=== PATIENT | male | born 1975 | race Caucasian/White ===

== ENCOUNTER 2017-09-18 11:05 | Inpatient (IN) | payer MEDICARE, MEDICAID ==
[~2017-09-18] VITALS: Ht 182.9 cm; Wt 136.1 kg
[2017-09-18] VITALS (7 sets, daily range): BP systolic 139–184; BP diastolic 79–110
[~2017-09-18 11:05] MED LIST: ACTOS15 MG PO; AMIT75TA2 PO; AMT25T PO; CELEXA PO; CITA40TA19 PO; DESV50TA PO; DOXY100C2 PO; HYDR-2856 PO; HYDR-2962 PO; HYDR-34 PO; HYDR-3720 PO; HYDR1TAB PO; HYDR25CA92 PO; IBP800T PO; LITHIUM; METF850T PO; MTF500T PO; NF-ESOM40C PO; OXYC80TA39 PO; OXYCONTIN PO; PALI6TAB2 PO; PGLT30T PO; QUET300T PO; QUET300T2 PO; QUET50TA PO; SULF1TAB38 PO; TRAM50TA2 PO
[2017-09-18] MEDS ORDERED: NS IV 1000 ML 1,000 ML ONE (11:08)
--- OUTSIDE RECORDS SUMMARY | 2017-09-18 11:11 | XMS REPORT ---
Author Author ANIL Sanchez Organization [facility] Address [address] [place] [address] Care Team Providers Care Director Of Anesthesia Services Name Role Phone Daniel ANIL Unavailable PROBLEMS Type Condition ICD9-CM Code TBG34-ZD Code Onset Dates Condition Status SNOMED Code Problem HTN (hypertension) I10 Active 11843146 Problem Restless legs syndrome G25.81 Active 649734038 Problem GERD (gastroesophageal reflux disease) K21.9 Active 849217399 Problem ED (erectile dysfunction) N52.9 Active 517948788 Problem PAD (peripheral artery disease) I73.9 Active 689833160 Problem Ulcer of right foot, unspecified ulcer stage L97.519 Active 00504405 Problem 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 669737794 Problem COPD (chronic obstructive pulmonary disease) J44.9 Active 92425120 Problem DM neuro manif type II E11.49 Active 41046562 Problem Sinusitis, unspecified chronicity, unspecified location J32.9 Active 55573827 ALLERGIES No Information ENCOUNTERS Encounter Location Date Diagnosis [facility] [id number] [place] [address] 46463- 5713 Aug, [facility] [id number] [place] [address] 71667- 4567 Jul, Back pain M54.9 [facility] [id number] [place] [address] 86981- 1193 Jul, [place] [facility] [id number] [place] [address] 75912- 6686 Jul, DM neuro manif type II E11.49 and Ulcer of right foot, unspecified ulcer stage L97.519 [place] [id number] [place] [address] 53069- 8375 Jun, [facility] [id number] [place] [address] 60754- 7922 15 Jun, 2017 [facility] [id number] [place] [address] 72351- 0727 May, 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 complication E11.49 ; GERD (gastroesophageal reflux disease) K21.9 and PAD ( peripheral artery disease) I73.9 [facility] [id number] [place] [address] 14239- 7603 May, Decubital ulcer L89.90 ; Diabetes E11.9 and GERD ( gastroesophageal reflux disease) K21.9 [facility] [id number] [place] [address] 11606- 9041 May, [facility] [id number] [place] [address] 77000- 4464 Apr, [facility] [id number] [place] [address] 17779- 0123 Mar, [facility] [id number] [place] [address] 21231- 1799 Mar, [facility] [id number] [place] [address] 48872- 9680 Feb, [facility] [id number] [place] [address] 80377- 1373 Feb, [facility] [id number] [place] [address] 21546- 7086 Jan, [facility] [id number] [place] [address] 86447- 9457 Jan, HTN (hypertension) I10 [facility] [id number] [place] [address] 87614- 4394 Jan, [facility] [id number] [place] [address] 02756- 5422 Dec, Back pain M54.9 [facility] [id number] [address]- 1822 Dec, Back pain M54.9 [facility] [id number] [place] [address] 93988 -7260 Dec, Encounter for immunization Z23 and Puncture wound of right foot, initial encounter S91.331A [facility] [id number] [place] [address] 44353- 5302 Dec, [facility] [id number] [place] [address] 63302- 9608 Nov, [facility] [id number] [place] [address] 65022- 3653 Nov, COPD (chronic obstructive pulmonary disease) J44.9 [facility] [id number] [place] [address] 45638- 3309 Nov, [facility] [id number] [place] [address] 74497- 0170 Oct, [facility] [id number] [place] [address] 12352- 2430 Oct, [facility] [id number] [place] [address] 04238- 3014 September, Onychomycosis B35.1 and DM neuro manif type II E11.49 [facility] [id number] [place] [address] 38693- 1985 September, [facility] [id number] [place] [address] 42629- 1982 Aug, [facility] [id number] [place] [address] 21087- 9200 Jul, Sinusitis, unspecified chronicity, unspecified location J32.9 and Cough R05 [facility] [id number] [place] [address] 73673- 2868 Jul, Back pain M54.9 [facility] [id number] [place] [address] 65596- 5293 14 Jun, 2016 Back pain M54.9 [facility] [id number] [place] [address] 23408- 5553 06 Jun, 2016 COPD (chronic obstructive pulmonary disease) J44.9 [facility] [id number] [place] [address] 09710- 6037 May, [facility] [id number] [place] [address] 20982- 7052 May, [facility] [id number] [place] [address] 93017- 4332 May, Back pain M54.9 [facility] [id number] [place] [address] 42469- 6985 May, [facility] [id number] [place] [address] 25181- 4608 May, [facility] [id number] [place] [address] 12294- 6582 May, Diabetes E11.9 [place] [id number] [place] [address] 98506- 3707 11 May, 2016 Diabetes E11.9 ; GERD (gastroesophageal reflux disease) K21.9 ; Back pain M54.9 ; ED (erectile dysfunction) N52.9 ; HTN (hypertension) I10 ; COPD (chronic obstructive pulmonary disease) J44.9 ; 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 complication E11.49 ; Insomnia G47.00 ; Restless legs syndrome G25.81 ; Encounter for hepatitis C screening test for low risk patient Z11.59 and Need for hepatitis C screening test Z11.59 [place] [id number] [place] [address] 57213- 7045 May, HTN (hypertension) I10 [facility] [id number] [place] [address] 38523- 3675 Apr, [facility] [id number] [place] [address] 78239- 0857 Apr, [facility] [id number] [place] [address] 49027- 8927 Apr, [facility] [id number] [place] [address] 81608- 4716 Apr, [facility] [id number] [place] [address] 79025- 9272 Apr, [facility] [id number] [place] [address] 19461- 1287 Mar, [facility] [id number] [place] [address] 02855- 7176 Mar, [facility] [id number] [place] [address] 82558- 3911 Mar, [facility] [id number] [place] [address] 20128- 7376 Mar, [facility] [id number] [place] [address] 89249- 5733 Mar, Dental examination Z01.20 [facility] [id number] [place] [address] 86678- 8820 Feb, [facility] [id number] [place] [address] 93503- 4489 Feb, [facility] [id number] [place] [address] 44843- 3373 Feb, Back pain M54.9 [facility] [id number] [place] [address] 88274- 3009 Jan, [facility] [id number] [place] [address] 13823- 4340 Jan, [facility] [id number] [place] [address] 55439- 5175 Dec, Diabetes E11.9 ; GERD (gastroesophageal reflux disease) K21.9 ; ED (erectile dysfunction) N52.9 ; HTN (hypertension) I10 ; Insomnia G47.00 ; COPD (chronic obstructive pulmonary disease) J44.9 ; Neuropathy G62.9 and Bipolar depression F31.30 [facility] [id number] [place] [address] 69394- 3125 Dec, 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 complication E11.49 and Onychomycosis B35.1 [facility] [id number] [place] [address] 32088- 5833 Dec, [facility] [id number] [place] [address] 82613- 3578 Dec, [facility] [id number] [place] [address], [place] [address]- 4779 Dec, [facility] [id number] [place] [address], [place] [address]- 5795 Dec, [facility] [id number] [place] [address] 32354- 5981 Nov, [facility] [id number] [place] [address] 08307- 6550 Nov, [facility] [id number] [place] [address], [place] [address]- 5762 Oct, [facility] [id number] [address]- 0052 Oct, [facility] [id number] [place] [address] 13017- 6449 Oct, Back pain M54.9 [facility] [id number] [place] [address] 44944- 8535 Oct, [facility] [id number] [place] [address] 14765- 9482 Oct, [facility] [id number] [address]- 8657 Oct, [facility] [id number] [place] [address] 37782- 1473 Oct, HTN (hypertension) I10 [facility] [address] [address]- 7500 Oct, Back pain M54.9 [facility] [id number] [place] [address] 32449- 1542 Oct, Chronic pain syndrome G89.4 [facility] [id number] [place] [address] 71083- 8638 September, Back pain M54.9 [facility] [id number] [place] [address] 84420- 3314 September, HTN (hypertension) I10 [facility] [id number] [place] [address] 46565- 6937 Aug, Porokeratosis Q82.8 ; Onychomycosis B35.1 and 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 complication E11.49 [facility] [id number] [place] [address] 08084- 0565 Aug, GERD (gastroesophageal reflux disease) K21.9 ; Diabetes E11.9 ; HTN (hypertension) I10 ; Insomnia G47.00 ; Restless legs syndrome G25.81 ; COPD (chronic obstructive pulmonary disease) J44.9 ; Back pain M54.9 and Bipolar 1 disorder F31.9 [facility] [address] [address]- 7554 Aug, [facility] [id number] [place] [address] 70629- 6193 Aug, [facility] [id number] [place] [address] 46712- 2369 Aug, [facility] [id number] [place] [address] 56708- 3407 Aug, [facility] [address] [place] [address] 33214- 6444 Jul, [facility] [id number] [place] [address] 75331- 9090 31 Jul, 2015 [facility] [id number] [place] [address] 09155- 0971 30 Jul, 2015 [facility] [id number] [place] [address] 11493- 0130 16 Jul, 2015 [facility] [id number] [place] [address] 50602- 2522 15 Jul, 2015 [facility] [id number] [place] [address] 91802- 3539 Jul, [facility] [id number] [place] [address] 02976- 0134 Jun, Decubital ulcer L89.90 ; Diabetes E11.9 ; Back pain M54.9 ; HTN (hypertension) I10 and COPD (chronic obstructive pulmonary disease) J44.9 [facility] [id number] [place] [address] 86276- 7204 Jun, [facility] [id number] [place] [address] 84331- 9839 Jun, [facility] [id number] [place] [address] 31412- 3742 Jun, [facility] [id number] [place] [address] 70908- 4478 Jun, [facility] [id number] [place] [address] 68465- 6709 Jun, Diabetes E11.9 ; Insomnia G47.00 ; Decubital ulcer L89.90 ; GERD (gastroesophageal reflux disease) K21.9 ; Back pain M54.9 ; Superficial fungus infection of skin B36.9 and HTN (hypertension) I10 [address] [id number] [id number] Jun, Dental examination Z01.20 [facility] [address] [address]- 1592 May, [facility] [address] [address]- 1801 May, [facility] [id number] [place] [address] 25437- 3621 May, [facility] [address] [place] [address] 72319- 6029 May, Diabetes E11.9 ; HTN (hypertension) I10 and Decubital ulcer L89.90 [facility] [id number] [address]- 3885 May, HTN (hypertension) I10 ; Decubital ulcer L89.90 and Diabetes E11.9 [place] [id number] [place] [address] 51070- 6241 30 Apr, 2015 Diabetes E11.9 ; GERD (gastroesophageal reflux disease) K21.9 ; Back pain M54.9 ; HTN (hypertension) I10 ; Restless legs syndrome G25.81 and Decubital ulcer L89.90 [facility] [facility] [address] [address]- 9114 17 Apr, 2015 [place] [id number] [place] [address] 34709- 1135 Apr, Diabetes E11.9 ; HTN (hypertension) I10 ; Restless legs syndrome G25.81 ; GERD (gastroesophageal reflux disease) K21.9 and COPD ( chronic obstructive pulmonary disease) J44.9 [facility] [address] [address]- 5946 Mar, [facility] [address] [address]- 1359 Mar, [place] [id number] [place] [address] 90533- 2814 18 Mar, 2015 Diabetes E11.9 ; Abscess L02.91 and Restless legs syndrome G25.81 [place] [facility] [id number] [place] [address] 50983- 0907 Mar, [place] [id number] [place] [address] 49113- 2751 Feb, GERD (gastroesophageal reflux disease) K21.9 ; Back pain M54.9 ; ED (erectile dysfunction) N52.9 ; Diabetes E11.9 ; HTN (hypertension) I10 and Insomnia G47.00 [place] [id number] [place] [address] 31028- 2895 Feb, [place] [facility] [address] 30830- 5477 Feb, [place] [facility] [address] 47990- 6497 Jan, [facility] [facility] [address] 56493- 6794 Jan, Diabetes 250.00 ; Nondependent cannabis abuse, continuous 305.21 ; Cough 786.2 ; Schizoaffective disorder, unspecified 295.70 ; Sciatica 724.3 ; Other, mixed, or unspecified nondependent drug abuse, unspecified 305.90 ; Chronic pain 338.29 ; GERD (gastroesophageal reflux disease) 530.81 and HTN (hypertension) 401.9 [place] [id number] [place] [address] 73335- 2934 Jan, [place] [id number] [place] [address] 53175- 1376 Jan, [place] [facility] [address] 85328- 9961 Jan, Chronic pain associated with significant psychosocial dysfunction 338.4 ; Diabetes mellitus without mention of complication, type I [ juvenile type], uncontrolled 250.03 ; Benign essential hypertension 401.1 ; Schizoaffective disorder, unspecified 295.70 ; Wheezing 786.07 ; Ear ache 388.70 ; Cough 786.2 ; Sciatica 724.3 and Foot pain, bilateral 729.5 [place] [id number] [place] [address] 05421- 0712 Dec, [facility] [address] [address]- 6666 Dec, [facility] [address] [address]- 2604 Dec, [facility] [address] [address]- 9513 Dec, [facility] [address] [place] [address] 41681- 9090 Dec, [facility] [address] [address]- 7637 Nov, Elevated liver enzymes 790.5 [facility] [address] [address]- 8453 Nov, [facility] [address] [address]- 7195 Nov, [facility] [address] [address]- 4145 Nov, [facility] [address] [address]- 4837 Nov, Benign essential hypertension 401.1 ; Diabetes mellitus without mention of complication, type I [juvenile type], uncontrolled 250.03 and Nondependent cannabis abuse, continuous 305.21 [facility] [address] [address]- 1800 Oct, Cellulitis 682.9 and Benign essential hypertension 401.1 [facility] [address] [address]- 0779 Oct, [facility] [address] [address]- 1328 September, [facility] [address] [address]- 6881 September, [facility] [address] [address]- 5898 Aug, [facility] [place] [facility] [address] [id number] [place] [address]- 0962 28 Aug, 2014 [facility] [place] [facility] [address] [id number] [place] [address]- 9270 14 Aug, 2014 [facility] [place] [facility] [address] [id number] [place] [address]- 3534 Aug, [facility] [place] [facility] [address] [id number] [place] [address]- 4122 Jul, [facility] [place] [facility] [address] [id number] [place] [address]- 8632 Jul, [facility] [place] [facility] [address] [id number] [place] [address]- 6482 Jul, [facility] [place] [facility] [address] [facility] [id number] [place] [address]- 6999 Jul, [facility] [place] [facility] [address] [id number] [place] [address]- 5739 Jul, [facility] [place] [facility] [address] [id number] [place] [address]- 8798 Jul, [facility] [place] [facility] [address] [id number] [place] [address]- 3735 Jun, [facility] [place] [facility] [address] [id number] [place] [address]- 6223 Jun, [facility] [place] [facility] [address] [id number] [place] [address]- 9878 Jun, [facility] [place] [facility] [address] [id number] [place] 2786 Jun, [facility] [place] [facility] [address] [id number] [place] 4244 Jun, [facility] [place] [facility] [address] [id number] [place] [address]- 1510 May, [facility] [place] [facility] [address] [id number] [place] [address]- 9155 May, [facility] [address] [id number] [place] [address]- 0204 May, [facility] [address] [id number] [place] [address]- 3095 May, [facility] [address] [id number] [place] [address]- 5124 May, [facility] [address] [id number] [place] [address]- 8900 May, [facility] [address] [id number] [place] [address]- 9711 May, [facility] [address] [id number] [place] [address]- 8430 May, [facility] [address] [id number] [place] [address]- 4218 Apr, [facility] [address] [id number] [place] [address]- 2262 Apr, [facility] [address] [id number] [place] [address] Apr, [facility] [address] [id number] [place] [address] Apr, [facility] [place] [facility] [address] [id number] [place] [address] Mar, [facility] [address] [id number] [place] [address] Mar, [facility] [place] [facility] [address] [id number] [place] [address] Mar, [facility] [place] [facility] [address] [id number] [place] [address] Mar, [facility] [place] [facility] [address] [id number] [place] [address] Feb, [facility] [place] [facility] [address] [id number] [place] [address] Feb, [facility] [place] [facility] [address] [id number] [place] [address] Feb, [facility] [place] [facility] [address] [id number] [place] [address] Feb, [facility] [place] [facility] [address] [id number] [place] [address] Feb, [facility] [place] [facility] [address] [id number] [place] [address] Feb, [facility] [place] [facility] [address] [id number] [place] [address] Jan, [facility] [place] [facility] [address] [id number] [place] [address] Jan, [facility] [place] [facility] [address] [id number] [place] [address] Jan, [facility] [place] [facility] [address] [id number] [place] [address] Jan, [facility] [place] [facility] [address] [id number] [place] [address] Dec, [facility] [place] [facility] [address] [id number] [place] [address] Dec, [facility] [place] [facility] [address] [id number] [place] [address] Dec, [facility] [place] [facility] [address] [id number] [place] [address] Dec, [facility] [place] [facility] [address] [id number] [place] [address] Dec, [facility] [place] [facility] [address] [id number] [place] [address] Dec, [facility] [place] [facility] [address] [id number] [place] [address] Oct, [facility] [address] [id number] [place] [address] Oct, [facility] [place] [facility] [address] [id number] [place] [address] September, [facility] [place] [facility] [address] [id number] [place] [address] September, [facility] [place] [facility] [address] [id number] [place] [address] September, [facility] [place] [facility] [address] [id number] [place] [address] September, [facility] [place] [facility] [address] [id number] [place] [address] September, [facility] [place] [facility] [address] [id number] [place] [address] September, [facility] [place] [facility] [address] [id number] [place] [address] Aug, [facility] [place] [facility] [address] [id number] [place] [address] Aug, [facility] [place] [facility] [address] [id number] [place] [address] Aug, [facility] [place] [facility] [address] [id number] [place] [address] Aug, [facility] [place] [facility] [address] [id number] [place] [address] Jul, [facility] [place] [facility] [address] [id number] [place] [address] Jul, [facility] [place] [facility] [address] [id number] [place] [address] Jun, [facility] [place] [facility] [address] [id number] [place] [address] Jun, [facility] [place] [facility] [address] [id number] [place] [address] May, [facility] [address] [id number] [place] [address] May, [facility] [place] [facility] [address] [id number] [place] [address] Jan, [facility] [place] [facility] [address] [id number] [place] [address] Dec, [facility] [place] [facility] [address] [id number] [place] [address] Jun, [facility] [place] [facility] [address] [id number] [place] [address] May, [facility] [address] [id number] [place] [address] Nov, [facility] [address] [id number] [place] [address] September, [facility] [address] [id number] [place] [address] Aug, [facility] [address] [id number] [place] [address] Aug, [facility] [place] [facility] [address] [id number] [place] [address] Aug, [facility] [address] [id number] [place] [address] Aug, [facility] [place] [facility] [address] [id number] [place] [address] Nov, [facility] [place] [facility] [address] [id number] [place] [address] Oct, [facility] [place] [facility] [address] [id number] [place] [address] Jul, [facility] [place] [facility] [address] [id number] [place] [address] Feb, [facility] [address] [facility] [id number] [place] [address] Feb, [facility] [address] [id number] [address] Apr, [facility] [address] [facility] [id number] [place] [address] Apr, [facility] [address] [id number] [address] Feb, [facility] [address] [facility] [id number] [place] [address] Feb, [facility] [address] [facility] [id number] [address] Jul, IMMUNIZATIONS No Known Immunizations SOCIAL HISTORY Never Assessed REASON FOR VISIT Controlled Med Refill Request PLAN OF CARE VITAL SIGNS MEDICATIONS Medication Instructions Dosage Frequency Start Date End Date Duration Status Lyrica 150 MG Orally Twice a day 1 capsule 12h 28 Active Hydrocodone-Ibuprofen 7.5-200 MG Orally 3 times a day 1 tablet as needed 8h Nov, 28 Active RESULTS No Results PROCEDURES No Known procedures INSTRUCTIONS MEDICATIONS ADMINISTERED No Known Medications MEDICAL (GENERAL) HISTORY Type Description Date Medical History hypertension Medical History Type 2 Diabetes Medical History Hep C Medical History Depression Medical History Anxiety Surgical History Right little toe amputation Hospitalization History Psych hospitalizations(numerous) Hospitalization History for surgeries
--- OUTSIDE RECORDS SUMMARY | 2017-09-18 11:11 | XMS REPORT | Clinical Summary ---
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 Disp. Refills Start End Date Status Date busPIRone (BUSPAR) 10 MG Take 2 tablets (20 mg 120 tablet 0 03/12/20 Active tablet total) by mouth 2 (two) 12 times daily. duloxetine (CYMBALTA) 60 Take 1 capsule (60 mg 30 capsule 0 03/12/20 Active MG capsule total) by mouth daily. 12 gabapentin (NEURONTIN) Take 2 capsules (600 mg 90 capsule 0 03/12/20 Active 300 MG capsule total) by mouth 3 (three) 12 times daily. lisinopril Take 1 tablet (10 mg 30 tablet 0 03/12/20 Active (PRINIVIL,ZESTRIL) 10 MG total) by mouth daily. 12 tablet ziprasidone (GEODON) 80 Take 1 capsule (80 mg 60 capsule 0 03/12/20 Active MG capsule total) by mouth 2 (two) 12 times daily with meals. zolpidem (AMBIEN) 10 MG Take 1 tablet (10 mg 15 tablet 1 03/12/20 Active tablet total) by mouth nightly 12 as needed for Sleep (can be given 30' after the Trazodone). metformin (GLUCOPHAGE) Take 1 tablet (500 mg 60 tablet 0 03/12/20 Active 500 MG tablet total) by mouth 2 (two) 12 times daily with meals. Active Problems Problem Noted Date Schizoaffective disorder, depressive type ([facility]) 03/04/2012 Mood disorder ([facility]) 03/02/2012 Social History Tobacco Use Types Packs/Day Years Used Date Current Every Day Smoker 06 09 Tobacco Cessation: Ready to Quit: No; Counseling Given: Yes Alcohol Use Drinks/Week oz/Week Comments Yes 1 Standard 0.5 drinks or equivalent Sex Assigned at Date Recorded Not on file Last Filed Vital Signs Vital Sign Reading Time Taken Blood Pressure 127/88 03/12/2012 6:27 AM CDT Pulse 75 03/12/2012 6:27 AM CDT Temperature 36.5 C (97.7 F) 03/12/2012 6:27 AM CDT Respiratory Rate 16 03/12/2012 6:27 AM CDT Oxygen Saturation 96% 03/10/2012 9:15 AM CDT Inhaled Oxygen - - Concentration Weight 85.3 kg (188 lb) 03/10/2012 6:35 AM CDT Height 177.8 cm (5' 10") 03/10/2012 6:35 AM CDT Body Mass Index 26.98 03/10/2012 6:35 AM CDT Plan of Treatment Health Maintenance Due Date Last Done Comments Varicella Vaccines (1 of 1986 2 - 2 Dose Adolescent Series) DTaP,Tdap,and Td Vaccines 1992 (1 - Tdap) Influenza Vaccine (Season 01/09/2018 Ended) Results Not on filefrom Last 3 Months
--- OUTSIDE RECORDS SUMMARY | 2017-09-18 11:11 | XMS REPORT ---
Author ANIL Ribeiro [facility] eClinical[employer] Address Unknown Phone Unavailable Care Team Providers Care Box Toe Flanger Stitchdowns Name Role Phone ANIL KHOURY Unavailable Allergies No Known Allergies Problems Problem Type Condition Code Onset Dates Condition Status Problem Encounter for long-term (current) use of other medications V58.69 Active Problem Corns and callosities 700 Active Problem Ulcer of other part of foot 707.15 Active Problem Benign essential hypertension 401.1 Active Problem Nondependent cannabis abuse, continuous 305.21 Active Problem Diabetes 250.00 Active Problem Wheezing 786.07 Active Problem Dermatophytosis of foot 110.4 Active Problem Lower limb amputation, great toe V49.71 Active Problem Cough 786.2 Active Problem Diabetes mellitus without mention of complication, type I [juvenile type], uncontrolled 250.03 Active Problem Unspecified hereditary and idiopathic peripheral neuropathy 356.9 Active Problem Other, mixed, or unspecified nondependent drug abuse, unspecified 305.90 Active Problem Counseling on substance use and abuse V65.42 Active Problem Nondependent tobacco use disorder 305.1 Active Problem Sciatica 724.3 Active Problem Dermatophytosis of nail 110.1 Active Problem Lower limb amputation, other toe(s) V49.72 Active Problem Schizoaffective disorder, unspecified 295.70 Active Medications Medication Code System Code Instructions Start Date End Date Status Dosage Lisinopril-Hydrochlorothiazide [facility] [address]-01 10-12.5 MG Orally 2 times a day Apr 18, 2014 take 0.5 tablet in a.m. and 0.5 tablet in the p.m. Results No Known Results Summary Purpose eClinicalWorks Submission
--- OUTSIDE RECORDS SUMMARY | 2017-09-18 11:11 | XMS REPORT ---
Author Author ANIL KHOURY Organization [facility] Address [address] [place] [address] Care Team Providers Care Zoning Administrator Name Role Phone ANIL KHOURY Unavailable PROBLEMS Type Condition ICD9-CM Code [id number] Code Onset Dates Condition Status SNOMED Code Problem Diabetes E11.9 Active 63569189 Problem Back pain M54.9 Active 379164811 Problem ED (erectile dysfunction) N52.9 Active 515052007 Problem Insomnia G47.00 Active 226075690 Problem HTN (hypertension) I10 Active 86259600 Problem 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 131533268 Problem Decubital ulcer L89.90 Active 456050553 Problem Restless legs syndrome G25.81 Active 152589386 Problem GERD (gastroesophageal reflux disease) K21.9 Active 440132216 Problem COPD (chronic obstructive pulmonary disease) J44.9 Active 91690282 Problem Abscess L02.91 Active 144665386 ALLERGIES Unknown Allergies SOCIAL HISTORY No smoking Hx information available PLAN OF CARE VITAL SIGNS MEDICATIONS Medication Instructions Dosage Frequency Start Date End Date Duration Status Vicoprofen 7.5-200 MG Orally 3 times a day 1 tablet as needed 8h 17 Jun, 2015 28 days Active RESULTS No Results PROCEDURES No Known procedures IMMUNIZATIONS No Known Immunizations
--- OUTSIDE RECORDS SUMMARY | 2017-09-18 11:11 | XMS REPORT ---
Author ANIL Ribeiro [facility] e[employer] Address Unknown Phone Unavailable Care Team Providers Care Union Contract Representative Name Role Phone ANIL KHOURY Unavailable Allergies No Known Allergies Problems Problem Type Condition Code Onset Dates Condition Status Problem Insomnia G47.00 Active Problem Restless legs syndrome G25.81 Active Problem GERD (gastroesophageal reflux disease) K21.9 Active Problem Abscess L02.91 Active Problem Diabetes E11.9 Active Problem HTN (hypertension) I10 Active Problem Back pain M54.9 Active Problem ED (erectile dysfunction) N52.9 Active Medications No Known Medications Results No Known Results Summary Purpose eClinicalWorks Submission
--- OUTSIDE RECORDS SUMMARY | 2017-09-18 11:12 | XMS REPORT ---
Author Author ANIL Sanchez Organization [facility] Address [address] [place] [address] Care Team Providers Care Hand Mounter Name Role Phone Daniel ANIL Unavailable PROBLEMS Type Condition ICD9-CM Code CRI91-EB Code Onset Dates Condition Status SNOMED Code Problem HTN (hypertension) I10 Active 89909023 Problem Restless legs syndrome G25.81 Active 075051163 Problem GERD (gastroesophageal reflux disease) K21.9 Active 444143700 Problem ED (erectile dysfunction) N52.9 Active 928035131 Problem PAD (peripheral artery disease) I73.9 Active 120007723 Problem Ulcer of right foot, unspecified ulcer stage L97.519 Active 37094322 Problem 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 708828025 Problem COPD (chronic obstructive pulmonary disease) J44.9 Active 69692860 Problem DM neuro manif type II E11.49 Active 65794840 Problem Sinusitis, unspecified chronicity, unspecified location J32.9 Active 46414313 ALLERGIES No Information ENCOUNTERS Encounter Location Date Diagnosis [facility] [id number] [place] [address] 64601- 1953 Aug, [facility] [id number] [place] [address] 65037- 1721 Jul, Back pain M54.9 [facility] [id number] [place] [address] 14905- 7215 Jul, [facility] [id number] [place] [address] 82578- 4942 Jul, DM neuro manif type II E11.49 and Ulcer of right foot, unspecified ulcer stage L97.519 [facility] [id number] [place] [address] 26956- 7619 Jun, [facility] [id number] [place] [address] 82209- 0208 15 Jun, 2017 [facility] [id number] [place] [address] 46913- 3852 May, 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 complication E11.49 ; GERD (gastroesophageal reflux disease) K21.9 and PAD ( peripheral artery disease) I73.9 [facility] [id number] [place] [address] 89119- 0496 May, Decubital ulcer L89.90 ; Diabetes E11.9 and GERD ( gastroesophageal reflux disease) K21.9 [facility] [id number] [place] [address] 84220- 4760 May, [facility] [id number] [place] [address] 38279- 8988 Apr, [facility] [id number] [place] [address] 51006- 3924 Mar, [facility] [id number] [place] [address] 01341- 0950 Mar, [facility] [id number] [place] [address] 51196- 0914 Feb, [facility] [id number] [place] [address] 20581- 7320 Feb, [facility] [id number] [place] [address] 02353- 7966 Jan, [facility] [id number] [place] [address] 02138- 4871 Jan, HTN (hypertension) I10 [facility] [id number] [place] [address] 28516- 2939 Jan, [facility] [id number] [place] [address] 93127- 1399 Dec, Back pain M54.9 [facility] [address] [address] 2467 Dec, Back pain M54.9 [facility] [id number] [place] [address] 11643 -3613 Dec, Encounter for immunization Z23 and Puncture wound of right foot, initial encounter S91.331A [facility] [id number] [place] [address] 23216- 7322 Dec, [facility] [id number] [place] [address] 37639- 8480 Nov, [facility] [id number] [place] [address] 60829- 8310 Nov, COPD (chronic obstructive pulmonary disease) J44.9 [facility] [id number] [place] [address] 49279- 1823 Nov, [facility] [id number] [place] [address] 54660- 5478 Oct, [facility] [id number] [place] [address] 67798- 7890 Oct, [facility] [id number] [place] [address] 91005- 1487 September, Onychomycosis B35.1 and DM neuro manif type II E11.49 [facility] [id number] [place] [address] 23372- 3240 September, [facility] [id number] [place] [address] 88076- 6901 Aug, [facility] [id number] [place] [address] 34255- 9459 Jul, Sinusitis, unspecified chronicity, unspecified location J32.9 and Cough R05 [facility] [id number] [place] [address] 41047- 3739 Jul, Back pain M54.9 [facility] [id number] [place] [address] 56829- 3994 14 Jun, 2016 Back pain M54.9 [facility] [id number] [place] [address] 18316- 9492 06 Jun, 2016 COPD (chronic obstructive pulmonary disease) J44.9 [facility] [id number] [place] [address] 61884- 9795 May, [facility] [id number] [place] [address] 53008- 8176 May, [facility] [id number] [place] [address] 53262- 5968 May, Back pain M54.9 [facility] [id number] [place] [address] 85658- 8311 May, [facility] [id number] [place] [address] 80169- 4736 May, [facility] [id number] [place] [address] 44522- 0467 May, Diabetes E11.9 [facility] [id number] [place] [address] 05919- 7671 11 May, 2016 Diabetes E11.9 ; GERD [...] Need for hepatitis C screening test Z11.59 [facility] [id number] [place] [address] 42293- 5993 May, HTN (hypertension) I10 [facility] [id number] [place] [address] 31631- 2751 Apr, [facility] [id number] [place] [address] 29582- 5606 Apr, [facility] [id number] [place] [address] 75094- 0159 Apr, [facility] [id number] [place] [address] 75787- 3930 Apr, [facility] [id number] [place] [address] 34203- 6327 Apr, [facility] [id number] [place] [address] 71674- 1721 Mar, [facility] [id number] [place] [address] 00361- 8461 Mar, [facility] [id number] [place] [address] 90520- 4905 Mar, [facility] [id number] [place] [address] 69186- 3149 Mar, [facility] [id number] [place] [address] 58911- 1576 Mar, Dental examination Z01.20 [facility] [id number] [place] [address] 62211- 2285 Feb, [facility] [id number] [place] [address] 28160- 4236 Feb, [facility] [id number] [place] [address] 67183- 9975 Feb, Back pain M54.9 [facility] [id number] [place] [address] 74064- 6179 Jan, [facility] [id number] [place] [address] 97736- 5274 Jan, [facility] [id number] [place] [address] 31604- 9606 Dec, Diabetes E11.9 ; GERD (gastroesophageal reflux disease) K21.9 ; ED (erectile dysfunction) N52.9 ; HTN (hypertension) I10 ; Insomnia G47.00 ; COPD (chronic obstructive pulmonary disease) J44.9 ; Neuropathy G62.9 and Bipolar depression F31.30 [facility] [id number] [place] [address] 16853- 3997 Dec, 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 complication E11.49 and Onychomycosis B35.1 [facility] [id number] [place] [address] 53498- 3738 Dec, [facility] [id number] [place] [address] 03686- 4158 Dec, [facility] [id number] [place] [address], [place] [address]- 9876 Dec, [facility] [id number] [place] [address], [place] [address]- 7270 Dec, [facility] [id number] [place] [address] 74817- 1363 Nov, [facility] [id number] [place] [address] 38248- 9989 Nov, [facility] [id number] [place] [address], [place] [address]- 2768 Oct, [facility] [id number] [address]- 8924 Oct, [facility] [id number] [place] [address] 79497- 8809 Oct, Back pain M54.9 [facility] [id number] [place] [address] 19958- 3201 Oct, [facility] [id number] [place] [address] 07316- 7043 Oct, [facility] [id number] [address]- 1529 Oct, [facility] [id number] [place] [address] 35449- 2810 Oct, HTN (hypertension) I10 [facility] [address] [place] [address]- 6366 Oct, Back pain M54.9 [facility] [id number] [place] [address] 06701- 3621 Oct, Chronic pain syndrome G89.4 [facility] [id number] [place] [address] 26254- 5344 September, Back pain M54.9 [facility] [id number] [place] [address] 34622- 8802 September, HTN (hypertension) I10 [facility] [id number] [place] [address] 16522- 9539 Aug, Porokeratosis Q82.8 ; Onychomycosis B35.1 and 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 complication E11.49 [facility] [id number] [place] [address] 72578- 0233 Aug, GERD (gastroesophageal reflux disease) K21.9 ; Diabetes E11.9 ; HTN (hypertension) I10 ; Insomnia G47.00 ; Restless legs syndrome G25.81 ; COPD (chronic obstructive pulmonary disease) J44.9 ; Back pain M54.9 and Bipolar 1 disorder F31.9 [facility] [address] [address]- 0327 Aug, [facility] [id number] [place] [address] 36609- 3726 Aug, [facility] [id number] [place] [address] 03760- 4837 Aug, [facility] [id number] [place] [address] 00113- 8406 Aug, [facility] [id number] [place] [address] 60193- 9744 Jul, [facility] [id number] [place] [address] 25361- 8630 31 Jul, 2015 [facility] [id number] [place] [address] 33778- 9097 30 Jul, 2015 [facility] [id number] [place] [address] 40679- 2897 16 Jul, 2015 [facility] [id number] [place] [address] 58024- 7976 15 Jul, 2015 [facility] [id number] [place] [address] 87175- 5293 Jul, [facility] [id number] [place] [address] 02332- 3935 Jun, Decubital ulcer L89.90 ; Diabetes E11.9 ; Back pain M54.9 ; HTN (hypertension) I10 and COPD (chronic obstructive pulmonary disease) J44.9 [facility] [id number] [place] [address] 01213- 3902 Jun, [facility] [id number] [place] [address] 69421- 7186 Jun, [facility] [id number] [place] [address] 49502- 6036 Jun, [facility] [id number] [place] [address] 97100- 3365 Jun, [facility] [id number] [place] [address] 35835- 8720 Jun, Diabetes E11.9 ; Insomnia G47.00 ; Decubital ulcer L89.90 ; GERD (gastroesophageal reflux disease) K21.9 ; Back pain M54.9 ; Superficial fungus infection of skin B36.9 and HTN (hypertension) I10 [address] [id number] [id number] Jun, Dental examination Z01.20 [facility] [address] [place] [address]- 7721 May, [facility] [address] [place] [address]- 3471 May, [facility] [id number] [place] [address] 58828- 8315 May, [facility] [id number] [place] [address] 13294- 7427 May, Diabetes E11.9 ; HTN (hypertension) I10 and Decubital ulcer L89.90 [facility] [id number] [address]- 0540 May, HTN (hypertension) I10 ; Decubital ulcer L89.90 and Diabetes E11.9 [facility] [id number] [place] [address] 16249- 2996 30 Apr, 2015 Diabetes E11.9 ; GERD (gastroesophageal reflux disease) K21.9 ; Back pain M54.9 ; HTN (hypertension) I10 ; Restless legs syndrome G25.81 and Decubital ulcer L89.90 [facility] [address] [address]- 3184 17 Apr, 2015 [facility] [id number] [place] [address] 86949- 6951 Apr, Diabetes E11.9 ; HTN (hypertension) I10 ; Restless legs syndrome G25.81 ; GERD (gastroesophageal reflux disease) K21.9 and COPD ( chronic obstructive pulmonary disease) J44.9 [facility] [address] [address]- 7313 Mar, [facility] [address] [address]- 2080 Mar, [facility] [id number] [place] [address] 71053- 5257 18 Mar, 2015 Diabetes E11.9 ; Abscess L02.91 and Restless legs syndrome G25.81 [place] [id number] [place] [address] 63987- 6618 Mar, [facility] [id number] [place] [address] 16669- 9081 Feb, GERD (gastroesophageal reflux disease) K21.9 ; Back pain M54.9 ; ED (erectile dysfunction) N52.9 ; Diabetes E11.9 ; HTN (hypertension) I10 and Insomnia G47.00 [facility] [id number] [place] [address] 27047- 5387 Feb, [facility] [address] 80652- 2098 Feb, [facility] [address] 50304- 9248 Jan, [facility] [address] 74971- 3215 Jan, Diabetes 250.00 ; Nondependent cannabis abuse, continuous 305.21 ; Cough 786.2 ; Schizoaffective disorder, unspecified 295.70 ; Sciatica 724.3 ; Other, mixed, or unspecified nondependent drug abuse, unspecified 305.90 ; Chronic pain 338.29 ; GERD (gastroesophageal reflux disease) 530.81 and HTN (hypertension) 401.9 [place] [id number] [place] [address] 67490- 3733 Jan, [place] [place] [id number] [place] [address] 94270- 8416 Jan, [place] [address] 70422- 6515 Jan, Chronic pain associated with significant psychosocial dysfunction 338.4 ; Diabetes mellitus without mention of complication, type I [ juvenile type], uncontrolled 250.03 ; Benign essential hypertension 401.1 ; Schizoaffective disorder, unspecified 295.70 ; Wheezing 786.07 ; Ear ache 388.70 ; Cough 786.2 ; Sciatica 724.3 and Foot pain, bilateral 729.5 [place] [id number] [place] [address] 05487- 3507 Dec, [facility] [address] [address]- 0270 Dec, [facility] [address] [address]- 2383 Dec, [facility] [address] [place] [address]- 5947 Dec, [facility] [id number] [place] [address] 55949- 8003 Dec, [facility] [address] [place] [address]- 6726 Nov, Elevated liver enzymes 790.5 [facility] [address] [place] [address]- 7418 Nov, [facility] [address] [place] [address]- 6556 Nov, [facility] [address] [place] [address]- 9937 Nov, [facility] [address] [place] [address]- 3629 Nov, Benign essential hypertension 401.1 ; Diabetes mellitus without mention of complication, type I [juvenile type], uncontrolled 250.03 and Nondependent cannabis abuse, continuous 305.21 [facility] [address], [place] [address]- 3418 Oct, Cellulitis 682.9 and Benign essential hypertension 401.1 [facility] [address] [address]- 9561 Oct, [facility] [address] [place] [address]- 2500 September, [facility] [address] [address]- 1922 September, [facility] [address] [place] [address]- 3198 Aug, [facility] [place] [facility] [address] [id number] [place] [address]- 0489 28 Aug, 2014 [facility] [place] [facility] [address] [id number] [place] [address]- 1242 14 Aug, 2014 [facility] [place] [facility] [address] [id number] [place] [address]- 5939 Aug, [facility] [place] [facility] [address] [id number] [place] [address]- 5240 Jul, [facility] [place] [facility] [address] [id number] [place] [address]- 4146 Jul, [facility] [place] [facility] [address] [id number] [place] [address]- 6645 Jul, [facility] [place] [facility] [address] [facility] [id number] [place] [address]- 5756 Jul, [facility] [place] [facility] [address] [id number] [place] [address]- 5348 Jul, [facility] [place] [facility] [address] [id number] [place] [address]- 2713 Jul, [facility] [place] [facility] [address] [id number] [place] [address]- 1058 Jun, [facility] [place] [facility] [address] [id number] [place] [address]- 7763 Jun, [facility] [place] [facility] [address] [id number] [place] [address]- 3107 Jun, [facility] [place] [facility] [address] [id number] [place] 8893 Jun, [facility] [place] [facility] [address] [id number] [place] 8955 Jun, [facility] [place] [facility] [address] [id number] [place] [address]- 2558 May, [facility] [place] [facility] [address] [id number] [place] [address]- 0169 May, [facility] [address] [id number] [place] [address]- 9517 May, [facility] [address] [id number] [place] [address]- 5530 May, [facility] [address] [id number] [place] [address]- 5881 May, [facility] [address] [id number] [place] [address]- 8749 May, [facility] [address] [id number] [place] [address] May, [facility] [address] [id number] [place] [address] May, [facility] [address] [id number] [place] [address] Apr, [facility] [address] [id number] [place] [address] Apr, [facility] [address] [id number] [place] [address] Apr, [facility] [address] [id number] [place] [address] Apr, [facility] [place] [facility] [address] [id number] [place] [address] Mar, [facility] [address] [id number] [place] [address] Mar, [facility] [place] [facility] [address] [id number] [place] [address] Mar, [facility] [place] [facility] [address] [id number] [place] [address] Mar, [facility] [place] [facility] [address] [id number] [place] [address] Feb, [facility] [place] [facility] [address] [id number] [place] [address] Feb, [facility] [place] [facility] [address] [id number] [place] [address] Feb, [facility] [place] [facility] [address] [id number] [place] [address] Feb, [facility] [place] [facility] [address] [id number] [place] [address] Feb, [facility] [place] [facility] [address] [id number] [place] [address] Feb, [facility] [place] [facility] [address] [id number] [place] [address] Jan, [facility] [place] [facility] [address] [id number] [place] [address] Jan, [facility] [place] [facility] [address] [id number] [place] [address] Jan, [facility] [place] [facility] [address] [id number] [place] [address] Jan, [facility] [place] [facility] [address] [id number] [place] [address] Dec, [facility] [place] [facility] [address] [id number], [place] [address] Dec, [facility] [place] [facility] [address] [id number], [place] [address] Dec, [facility] [place] [facility] [address] [id number] [place] [address] Dec, [facility] [place] [facility] [address] [id number] [place] [address] Dec, [facility] [place] [facility] [address] [id number], [place] [address] Dec, [facility] [place] [facility] [address] [id number], [place] [address] Oct, [facility] [address] [id number] [place] [address] Oct, [facility] [place] [facility] [address] [id number] [place] [address] September, [facility] [place] [facility] [address] [id number] [place] [address]- [address] September, [facility] [place] [facility] [address] [id number] [place] [address] September, [facility] [place] [facility] [address] [id number] [place] [address] September, [facility] [place] [facility] [address] [id number] [place] [address] September, [facility] [place] [facility] [address] [id number] [place] [address]- [address] September, [facility] [place] [facility] [address] [id number] [place] [address] Aug, [facility] [place] [facility] [address] [id number] [place] [address] Aug, [facility] [place] [facility] [address] [id number] [place] [address] Aug, [facility] [place] [facility] [address] [id number] [place] [address] Aug, [facility] [place] [facility] [address] [id number] [place] [address] Jul, [facility] [place] [facility] [address] [id number] [place] [address] Jul, [facility] [place] [facility] [address] [id number] [place] [address] Jun, [facility] [place] [facility] [address] [id number] [place] [address]- [address] Jun, [facility] [place] [facility] [address] [id number] [place] [address] May, [facility] [address] [id number] [place] [address] May, [facility] [place] [facility] [address] [id number] [place] [address] Jan, [facility] [place] [facility] [address] [id number] [place] [address] Dec, [facility] [facility] [address] [id number] [place] [address] Jun, [facility] [place] [facility] [address] [id number] [place] [address] May, [facility] [address] [id number] [place] [address] Nov, [facility] [address] [id number] [place] [address] September, [facility] [address] [id number] [place] [address] Aug, [facility] [address] [id number] [place] [address] Aug, [facility] [facility] [address] [id number] [place] [address] Aug, [facility] [address] [id number] [place] [address] Aug, [facility] [place] [facility] [address] [id number] [place] [address] Nov, [facility] [place] [facility] [address] [id number] [place] [address] Oct, [facility] [place] [facility] [address] [id number] [place] [address] Jul, [facility] [place] [facility] [address] [id number] [place] [address] Feb, [facility] [address] [id number] [address] Feb, [facility] [id number], [place] [address] Apr, [facility] [address] [id number], [place] [address] Apr, [facility] [id number] [address] Feb, [facility] [address] [id number], [place] [address] Feb, [facility] [address] [id number], [place] [address] Jul, IMMUNIZATIONS No Known Immunizations SOCIAL HISTORY Never Assessed REASON FOR VISIT Med Refill x1 PLAN OF CARE VITAL SIGNS MEDICATIONS Medication Instructions Dosage Frequency Start Date End Date Duration Status Pioglitazone HCl 45 mg TAKE ONE TABLET BY MOUTH ONCE A DAY 30 Active RESULTS No Results PROCEDURES No Known procedures INSTRUCTIONS MEDICATIONS ADMINISTERED No Known Medications MEDICAL (GENERAL) HISTORY Type Description Date Medical History hypertension Medical History Type 2 Diabetes Medical History Hep C Medical History Depression Medical History Anxiety Surgical History Right little toe amputation Hospitalization History Psych hospitalizations(numerous) Hospitalization History for surgeries
--- OUTSIDE RECORDS SUMMARY | 2017-09-18 11:13 | XMS REPORT ---
Author Author ANIL KHOURY [facility] Address [address] [place] [address] Care Team Providers Care Tick Sewer Name Role Phone ANIL KHOURY Unavailable PROBLEMS Type Condition ICD9-CM Code TSF39-BS Code Onset Dates Condition Status SNOMED Code Problem Diabetes E11.9 Active 15519601 Problem Back pain M54.9 Active 183681892 Problem ED (erectile dysfunction) N52.9 Active 687325083 Problem Insomnia G47.00 Active 067723513 Problem HTN (hypertension) I10 Active 17378716 Problem 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 537413534 Problem Decubital ulcer L89.90 Active 441127310 Problem Restless legs syndrome G25.81 Active 268796882 Problem GERD (gastroesophageal reflux disease) K21.9 Active 480881134 Problem COPD (chronic obstructive pulmonary disease) J44.9 Active 89006504 Problem Abscess L02.91 Active 953297734 ALLERGIES Unknown Allergies SOCIAL HISTORY No smoking Hx information available PLAN OF CARE VITAL SIGNS MEDICATIONS Unknown Medications RESULTS No Results PROCEDURES No Known procedures IMMUNIZATIONS No Known Immunizations
--- OUTSIDE RECORDS SUMMARY | 2017-09-18 11:13 | XMS REPORT ---
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 [employer] Name Role Phone Daniel ANIL Unavailable PROBLEMS Type Condition ICD9-CM Code JLB79-YS Code Onset Dates Condition Status SNOMED Code Problem HTN (hypertension) I10 Active 90264393 Problem Restless legs syndrome G25.81 Active 545638784 Problem GERD (gastroesophageal reflux disease) K21.9 Active 423318625 Problem ED (erectile dysfunction) N52.9 Active 689216804 Problem PAD (peripheral artery disease) I73.9 Active 875193366 Problem Ulcer of right foot, unspecified ulcer stage L97.519 Active 86846435 Problem 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 892023079 Problem COPD (chronic obstructive pulmonary disease) J44.9 Active 11321289 Problem DM neuro manif type II E11.49 Active 33680629 Problem Sinusitis, unspecified chronicity, unspecified location J32.9 Active 60387269 ALLERGIES No Information ENCOUNTERS Encounter Location Date Diagnosis [facility] [id number] [place] [address] 10345- 6175 Nov, [facility] [id number] [place] [address] 50766- 3518 Aug, [facility] [id number] [place] [address] 47401- 6941 24 Aug, 2017 Acute cystitis with hematuria N30.01 ; Ulcer of right foot, unspecified ulcer stage L97.519 ; HTN (hypertension) I10 ; COPD (chronic obstructive pulmonary disease) J44.9 and DM neuro manif type II E11.49 [facility] [id number] [place] [address] 39047- 8594 Aug, Back pain M54.9 [facility] [id number] [place] [address] 88506- 7263 29 Jul, 2017 [facility] [address] 28451- 4978 Jul, Back pain M54.9 [facility] [id number] [place] [address] 84355- 6405 Jul, [facility] [address] 28353- 3272 Jul, DM neuro manif type II E11.49 and Ulcer of right foot, unspecified ulcer stage L97.519 [place] [address] 88263- 3655 Jun, [place] [address] 12557- 5710 Jun, [facility] [facility] [address] 79396- 1696 May, 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 complication E11.49 ; GERD (gastroesophageal reflux disease) K21.9 and PAD ( peripheral artery disease) I73.9 [facility] [id number] [place] [address] 79058- 7724 May, Decubital ulcer L89.90 ; Diabetes E11.9 and GERD ( gastroesophageal reflux disease) K21.9 [facility] [id number] [place] [address] 02773- 4672 May, [facility] [id number] [place] [address] 52697- 8234 Apr, [facility] [facility] [address] 59184- 8875 Mar, [facility] [id number] [place] [address] 55198- 7402 Mar, [facility] [id number] [place] [address] 86688- 2675 Feb, [facility] [address] [address]- 3777 Feb, [facility] [id number] [place] [address] 83544- 8242 Jan, [facility] [id number] [place] [address] 19346- 7020 Jan, HTN (hypertension) I10 [facility] [id number] [place] [address] 33782- 4902 Jan, [facility] [id number] [place] [address] 96189- 6081 Dec, Back pain M54.9 [facility] [id number] [place] [address] 64350- 4095 Dec, Back pain M54.9 [facility] [id number] [place] [address] 35365 -0248 Dec, Encounter for immunization Z23 and Puncture wound of right foot, initial encounter S91.331A [facility] [id number] [place] [address] 50354- 6185 Dec, [facility] [id number] [place] [address] 26199- 9190 Nov, [facility] [id number] [place] [address] 64394- 2750 Nov, COPD (chronic obstructive pulmonary disease) J44.9 [facility] [id number] [place] [address] 14323- 8381 Nov, [facility] [id number] [place] [address] 00396- 9194 Oct, [facility] [id number] [place] [address] 90085- 3039 Oct, [facility] [address] [place] [address] 10314- 7516 September, Onychomycosis B35.1 and DM neuro manif type II E11.49 [facility] [address] [address]- 6691 September, [facility] [id number] [place] [address] 21574- 1468 Aug, [facility] [id number] [place] [address] 27453- 1524 Jul, Sinusitis, unspecified chronicity, unspecified location J32.9 and Cough R05 [facility] [id number] [place] [address] 17590- 3526 Jul, Back pain M54.9 [facility] [id number] [place] [address] 53567- 3744 14 Jun, 2016 Back pain M54.9 [facility] [id number] [place] [address] 48477- 2947 06 Jun, 2016 COPD (chronic obstructive pulmonary disease) J44.9 [facility] [id number] [place] [address] 19007- 0656 May, [facility] [id number] [place] [address] 81218- 7645 May, [facility] [address] [place] [address] 25559- 7263 May, Back pain M54.9 [facility] [id number] [place] [address] 73877- 4833 16 May, 2016 [facility] [address] [place] [address] 84185- 8362 May, [facility] [id number] [place] [address] 80440- 3502 May, Diabetes E11.9 [facility] [address] [place] [address] 95959- 2439 May, Diabetes E11.9 ; GERD (gastroesophageal reflux disease) [...] Need for hepatitis C screening test Z11.59 [facility] [id number] [place] [address] 28077- 6010 04 May, 2016 HTN (hypertension) I10 [facility] [id number] [place] [address] 45153- 1969 29 Apr, 2016 [facility] [id number] [place] [address] 97886- 1205 Apr, [facility] [id number] [place] [address] 14134- 5222 Apr, [facility] [id number] [place] [address] 08255- 2594 Apr, [facility] [id number] [place] [address] 81104- 2662 Apr, [facility] [id number] [place] [address] 00184- 6050 Mar, [facility] [id number] [address]- 1758 Mar, [facility] [id number] [place] [address] 27511- 6561 Mar, [facility] [id number] [place] [address] 77682- 8441 Mar, [facility] [id number] [place] [address] 69774- 9589 Mar, Dental examination Z01.20 [facility] [id number] [address]- 9429 24 Feb, 2016 [facility] [address] [place] [address]- 8376 Feb, [facility] [id number] [place] [address] 08266- 5609 Feb, Back pain M54.9 [facility] [id number] [place] [address] 15644- 2264 Jan, [facility] [id number] [place] [address] 03047- 0731 Jan, [facility] [id number] [place] [address] 40598- 7250 Dec, Diabetes E11.9 ; GERD (gastroesophageal reflux disease) K21.9 ; ED (erectile dysfunction) N52.9 ; HTN (hypertension) I10 ; Insomnia G47.00 ; COPD (chronic obstructive pulmonary disease) J44.9 ; Neuropathy G62.9 and Bipolar depression F31.30 [facility] [id number] [place] [address] 17116- 5399 Dec, 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 complication E11.49 and Onychomycosis B35.1 [facility] [id number] [place] [address] 87803- 7110 Dec, [facility] [id number] [place] [address] 19425- 2987 Dec, [facility] [address] [place] [address] 28782- 8708 Dec, [facility] [id number] [place] [address] 84448- 6914 Dec, [facility] [id number] [place] [address] 10534- 7076 Nov, [facility] [id number] [place] [address] 135781- 9436 Nov, [facility] [address] [place] [address] 77444- 4657 Oct, [facility] [address] [address]- 5127 08 Oct, 2015 [facility] [id number] [place] [address] 06451- 5192 07 Oct, 2015 Back pain M54.9 [facility] [id number] [place] [address] 96231- 8919 Oct, [facility] [id number] [place] [address] 27750- 1377 Oct, [facility] [id number] [place] [address] 05615- 5264 Oct, [facility] [id number] [place] [address] 88503- 9904 Oct, HTN (hypertension) I10 [facility] [id number] [place] [address] 61667- 6109 Oct, Back pain M54.9 [facility] [id number] [place] [address] 30716- 5771 Oct, Chronic pain syndrome G89.4 [facility] [id number] [place] [address] 44163- 2512 September, Back pain M54.9 [facility] [id number] [place] [address] 21149- 0244 September, HTN (hypertension) I10 [facility] [id number] [place] [address] 05927- 0550 Aug, Porokeratosis Q82.8 ; Onychomycosis B35.1 and 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 complication E11.49 [facility] [id number] [place] [address] 99160- 0001 Aug, GERD (gastroesophageal reflux disease) K21.9 ; Diabetes E11.9 ; HTN (hypertension) I10 ; Insomnia G47.00 ; Restless legs syndrome G25.81 ; COPD (chronic obstructive pulmonary disease) J44.9 ; Back pain M54.9 and Bipolar 1 disorder F31.9 [facility] [address] [address]- 0979 Aug, [facility] [address] [address]- 8316 Aug, [facility] [address] [address]- 3318 Aug, [facility] [address] [address]- 1413 Aug, [facility] [address] [address]- 2629 Jul, [facility] [id number] [place] [address] 97947- 3925 Jul, [facility] [address] [address]- 7938 30 Jul, 2015 [facility] [address] [address]- 5406 Jul, [facility] [address] [address]- 0640 Jul, [facility] [address] [address]- 4492 Jul, [facility] [address] [address]- 4203 17 Jun, 2015 Decubital ulcer L89.90 ; Diabetes E11.9 ; Back pain M54.9 ; HTN (hypertension) I10 and COPD (chronic obstructive pulmonary disease) J44.9 [facility] [address] [address]- 4760 Jun, [facility] [address] [address]- 1567 Jun, [facility] [address] [address]- 7459 Jun, [facility] [id number] [place] [address] 37959- 4568 Jun, [place] [address] 86369- 9222 Jun, Diabetes E11.9 ; Insomnia G47.00 ; Decubital ulcer L89.90 ; GERD (gastroesophageal reflux disease) K21.9 ; Back pain M54.9 ; Superficial fungus infection of skin B36.9 and HTN (hypertension) I10 [address] [id number] [id number] Jun, Dental examination Z01.20 [facility] [id number] [place] [address] 44390- 7593 May, [facility] [facility] [id number] [place] [address] 79881- 3437 May, [facility] [facility] [id number] [place] [address] 20977- 2894 May, [facility] [facility] [id number] [place] [address] 96917- 3118 May, Diabetes E11.9 ; HTN (hypertension) I10 and Decubital ulcer L89.90 [place] [address] [place] [address] 80124- 0816 May, HTN (hypertension) I10 ; Decubital ulcer L89.90 and Diabetes E11.9 [facility] [facility] [id number] [place] [address] 77598- 0480 Apr, Diabetes E11.9 ; GERD (gastroesophageal reflux disease) K21.9 ; Back pain M54.9 ; HTN (hypertension) I10 ; Restless legs syndrome G25.81 and Decubital ulcer L89.90 [facility] [id number] [place] [address] 86879- 6141 17 Apr, 2015 [facility] [id number] [place] [address] 04006- 5273 Apr, Diabetes E11.9 ; HTN (hypertension) I10 ; Restless legs syndrome G25.81 ; GERD (gastroesophageal reflux disease) K21.9 and COPD ( chronic obstructive pulmonary disease) J44.9 [facility] [facility] [id number] [place] [address] 56245- 2580 Mar, [facility] [id number] [place] [address] 60584- 2856 Mar, [place] [address] 61244- 8213 Mar, Diabetes E11.9 ; Abscess L02.91 and Restless legs syndrome G25.81 [place] [address] 32469- 7892 Mar, [place] [address] 76219- 0301 Feb, GERD (gastroesophageal reflux disease) K21.9 ; Back pain M54.9 ; ED (erectile dysfunction) N52.9 ; Diabetes E11.9 ; HTN (hypertension) I10 and Insomnia G47.00 [place] [address] 68889- 1803 Feb, [facility] [id number] [place] [address] 25763- 5444 Feb, [facility] [id number] [place] [address] 02565- 2025 Jan, [facility] [facility] [address] 83600- 5867 Jan, Diabetes 250.00 ; Nondependent cannabis abuse, continuous 305.21 ; Cough 786.2 ; Schizoaffective disorder, unspecified 295.70 ; Sciatica 724.3 ; Other, mixed, or unspecified nondependent drug abuse, unspecified 305.90 ; Chronic pain 338.29 ; GERD (gastroesophageal reflux disease) 530.81 and HTN (hypertension) 401.9 [place] [address] 23119- 6656 Jan, [facility] [id number] [place] [address] 97213- 6742 Jan, [facility] [id number] [place] [address] 90300- 2496 Jan, Diabetes mellitus without mention of complication, type I [ juvenile type], uncontrolled 250.03 ; Schizoaffective disorder, unspecified 295.70 ; Benign essential hypertension 401.1 ; Chronic pain associated with significant psychosocial dysfunction 338.4 ; Wheezing 786.07 ; Ear ache 388.70 ; Cough 786.2 ; Sciatica 724.3 and Foot pain, bilateral 729.5 [facility] [id number] [place] [address] 91670- 6585 Dec, [facility] [id number] [place] [address] 30635- 4809 Dec, [facility] [id number] [place] [address] 73973- 6861 Dec, [facility] [id number] [place] [address] 56062- 6708 Dec, [facility] [id number] [place] [address] 43999- 8891 Dec, [facility] [id number] [place] [address] 46911- 1992 Nov, Elevated liver enzymes 790.5 [facility] [id number] [place] [address] 22209- 0659 Nov, [facility] [address] [place] [address] 92686- 1903 Nov, [facility] [id number] [place] [address] 93975- 3511 Nov, [facility] [address] [place] [address] 003376- 6499 Nov, Diabetes mellitus without mention of complication, type I [ juvenile type], uncontrolled 250.03 ; Benign essential hypertension 401.1 and Nondependent cannabis abuse, continuous 305.21 [facility] [id number] [place] [address] 36957- 0025 Oct, Cellulitis 682.9 and Benign essential hypertension 401.1 [facility] [id number] [place] [address] 15160- 8871 08 Oct, 2014 [facility] [id number] [place] [address] 61887- 5553 September, [facility] [id number] [place] [address] 50080- 3429 September, [facility] [id number] [place] [address] 29560- 2597 Aug, [facility] [id number] [place] [address] 40558- 3375 Aug, [facility] [id number] [place] [address] 79901- 1919 Aug, [facility] [id number] [place] [address] 06591- 3527 Aug, [facility] [id number] [place] [address] 57804- 0706 Jul, [facility] [address] [address]- 7871 Jul, [facility] [address] [place] [address] 29111- 1855 Jul, [facility] [address] [address]- 3572 18 Jul, 2014 [facility] [id number] [place] [address] 20225- 0389 Jul, [facility] [address] [address]- 9800 Jul, [facility] [id number] [place] [address] 97480- 5636 Jun, [facility] [address] [id number] [place] [address]- 1901 Jun, [facility] [address] [id number] [place] [address]- 0464 Jun, [facility] [place] [facility] [address] [id number] [place] [address]- 8931 Jun, [facility] [place] [facility] [address] [id number] [place] [address]- 9649 Jun, [facility] [address] [id number] [place] [address]- 2926 May, [facility] [address] [id number] [place] [address]- 9151 May, [facility] [address] [id number] [place] [address]- 8047 May, [facility] [address] [id number] [place] [address]- 6205 May, [facility] [address] [id number] [place] [address]- 4706 May, [facility] [address] [facility] [id number] [place] [address]- 3253 May, [facility] [address] [id number] [address]- 0618 May, [facility] [place] [facility] [address] [id number] [address]- 0537 May, [facility] [place] [facility] [address] [id number] [place] [address]- 2558 Apr, [facility] [place] [facility] [address] [id number] [place] [address]- 2180 Apr, [facility] [place] [facility] [address] [id number] [place] [address]- 0734 Apr, [facility] [place] [facility] [address] [id number] [place] [address]- 1497 Apr, [facility] [place] [facility] [address] [id number] [place] 9828 Mar, [facility] [place] [facility] [address] [id number] [place] 0545 Mar, [facility] [place] [facility] [address] [id number] [place] [address]- 0073 Mar, [facility] [place] [facility] [address] [id number] [place] [address]- 2179 Mar, [facility] [place] [facility] [address] [id number] [place] [address]- 1034 Feb, [facility] [place] [facility] [address] [id number] [place] [address]- 1983 Feb, [facility] [place] [facility] [address] [id number] [place] [address]- 2943 Feb, [facility] [place] [facility] [address] [id number] [place] [address] Feb, [facility] [place] [facility] [address] [id number] [place] [address] Feb, [facility] [place] [facility] [address] [id number] [place] [address] Feb, [facility] [place] [facility] [address] [id number] [place] [address] Jan, [facility] [place] [facility] [address] [id number] [place] [address] Jan, [facility] [place] [facility] [address] [id number] [place] [address] Jan, [facility] [place] [facility] [address] [id number] [place] [address] Jan, [facility] [place] [facility] [address] [id number] [place] [address] Dec, [facility] [place] [facility] [address] [id number] [place] [address] Dec, [facility] [place] [facility] [address] [id number] [place] [address] Dec, [facility] [place] [facility] [address] [id number] [place] [address] Dec, [facility] [place] [facility] [address] [id number] [place] [address] Dec, [facility] [place] [facility] [address] [id number] [place] [address] Dec, [facility] [place] [facility] [address] [id number] [place] [address] Oct, [facility] [place] [facility] [address] [id number] [place] [address] Oct, [facility] [place] [facility] [address] [id number] [place] [address] September, [facility] [place] [facility] [address] [id number] [place] [address] September, [facility] [place] [facility] [address] [id number] [place] [address] September, [facility] [place] [facility] [address] [id number] [place] [address] September, [facility] [place] [facility] [address] [id number] [place] [address] September, [facility] [place] [facility] [address] [id number] [place] [address] September, [facility] [place] [facility] [address] [id number] [place] [address] Aug, [facility] [place] [facility] [address] [id number] [place] [address] Aug, [facility] [place] [facility] [address] [id number] [place] [address] Aug, [facility] [address] [id number] [place] [address] Aug, [facility] [place] [facility] [address] [id number] [place] [address] Jul, [facility] [address] [id number] [place] [address] Jul, [facility] [place] [facility] [address] [id number] [place] [address] Jun, [facility] [place] [facility] [address] [id number] [place] [address] Jun, [facility] [place] [facility] [address] [id number] [place] [address] May, [facility] [address] [id number] [place] [address] May, [facility] [address] [id number] [place] [address] Jan, [facility] [address] [id number] [place] [address] Dec, [facility] [address] [id number] [place] [address] Jun, [facility] [place] [facility] [address] [id number] [place] [address] May, [facility] [place] [facility] [address] [id number] [place] [address] Nov, [facility] [place] [facility] [address] [id number] [place] [address] September, [facility] [place] [facility] [address] [id number] [place] [address] Aug, [facility] [place] [facility] [address] [id number] [place] [address] Aug, [facility] [id number] [address] Aug, [facility] [id number] [address] Aug, [facility] [id number] [address] Nov, [facility] [address] [id number] [address] Oct, [facility] [address] [id number] [address] Jul, [facility] [address] [address] Feb, [facility] [id number] [address] Feb, [facility] [address] [address] Apr, [facility] [address] [address] Apr, [facility] [id number] [address] Feb, [facility] [address] [id number] [address] Feb, [facility] [id number] [address] Jul, IMMUNIZATIONS No Known Immunizations SOCIAL HISTORY Never Assessed REASON FOR VISIT PLAN OF CARE VITAL SIGNS MEDICATIONS Medication Instructions Dosage Frequency Start Date End Date Duration Status Amlodipine Besylate 10 mg Orally Once a day 1 tablet 24h 90 Active Ropinirole HCl 3 MG TAKE ONE TABLET BY MOUTH ONCE DAILY 1 TO 3 HOURS BEFORE BEDTIME 90 Active Metformin HCl 1000 MG Orally Twice a day 1 tablet with meals 12h 90 Active Norvasc 10 mg Orally Once a day 1 tablet 24h May, Active Metoprolol Succinate ER 50 MG TAKE ONE TABLET BY MOUTH ONCE DAILY 90 Active Requip 3 MG Orally Once a day 1 tablet 1 to 3 hours before bedtime 24h Mar, Active Ranitidine HCl 150 MG TAKE ONE TABLET BY MOUTH TWICE DAILY 90 Active RESULTS No Results PROCEDURES No Known procedures INSTRUCTIONS MEDICATIONS ADMINISTERED No Known Medications MEDICAL (GENERAL) HISTORY Type Description Date Medical History hypertension Medical History Type 2 Diabetes Medical History Hep C Medical History Depression Medical History Anxiety Surgical History Right little toe amputation Hospitalization History Psych hospitalizations(numerous) Hospitalization History for surgeries Hospitalization History UTI 08/27/17
--- OUTSIDE RECORDS SUMMARY | 2017-09-18 11:13 | XMS REPORT ---
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
--- OUTSIDE RECORDS SUMMARY | 2017-09-18 11:13 | XMS REPORT ---
Author ANLI Ribeiro [facility] eClinical[employer] Address Unknown Phone Unavailable Care Team Providers Care Head Loader Name Role Phone ANIL KHOURY CP Unavailable Allergies, Adverse Reactions, Alerts Substance Reaction Event Type Thorazine Info Not Available Drug Allergy Haldol Info Not Available Drug Allergy Problems Problem Type Condition ICD-9 Code Onset Dates Condition Status Assessment HTN (hypertension) 401.9 Active Assessment GERD (gastroesophageal reflux disease) 530.81 Active Assessment Chronic pain 338.29 Active Problem Dermatophytosis of nail 110.1 Active Assessment Other, mixed, or unspecified nondependent drug abuse, unspecified 305.90 Active Problem Schizoaffective disorder, unspecified 295.70 Active Assessment Sciatica 724.3 Active Problem Encounter for long-term (current) use of other medications V58.69 Active Problem Corns and callosities 700 Active Problem Ulcer of other part of foot 707.15 Active Problem Benign essential hypertension 401.1 Active Problem Nondependent cannabis abuse, continuous 305.21 Active Assessment Nondependent cannabis abuse, continuous 305.21 Active Assessment Cough 786.2 Active Problem Diabetes 250.00 Active Assessment Schizoaffective disorder, unspecified 295.70 Active Problem Wheezing 786.07 Active Problem Dermatophytosis of foot 110.4 Active Problem Lower limb amputation, great toe V49.71 Active Problem Cough 786.2 Active Problem Diabetes mellitus without mention of complication, type I [juvenile type], uncontrolled 250.03 Active Problem Unspecified hereditary and idiopathic peripheral neuropathy 356.9 Active Assessment Diabetes 250.00 Active Problem Other, mixed, or unspecified nondependent drug abuse, unspecified 305.90 Active Problem Counseling on substance use and abuse V65.42 Active Problem Nondependent tobacco use disorder 305.1 Active Problem Sciatica 724.3 Active Problem Lower limb amputation, other toe(s) V49.72 Active Medications Medication Code System Code Instructions Start Date End Date Status Dosage benztropine NDC 0 1 mg Jan 03, 2014 take 1 tablet (1 mg) by oral route 3 times per day Lyrica NDC [address]-34 150 MG Twice a day May 23, 2014 take 1 capsule (150 mg) by oral route 2 times per day Diagnosis codes (729.1) (356.9) Elavil [facility] 0 25 mg Dec 09, 2012 1-2 tablet by Oral route 1 time per day Ultram [facility] [address]-88 50 MG Orally 4 times a day Jan 09, 2015 Mar 03, 2015 1 tablet as needed Metformin HCl [facility] [address]-96 500 MG Orally Twice a day October 04, 2014 1 tablet with meals Vistaril [facility] [address]-00 50 mg Jan 03, 2014 take 1 capsule (50 mg) by oral route 4 times per day Invega Sustenna [facility] [address]-52 234 mg/1.5 mL Apr 18, 2014 every 3 weeks Pepcid [facility] [address]-81 20 MG May 31, 2014 1 tablet by Oral route 2 times per day Norvasc [facility] [address]-13 10 MG Orally Once a day October 27, 2014 1 tablet ProAir HFA [facility] [address]-11 108 (90 Base) MCG/ACT Inhalation every 4 hrs NEEDED ONLY Jan 09, 2015 2 puffs NEEDED Depakote [facility] [address]-71 500 mg Jan 03, 2014 take 1 tablet (500 mg) by oral route 3 times per day Cymbalta [facility] [address]-29 60 mg Jan 03, 2014 take 1 capsule (60 mg) by oral route once daily Lisinopril-Hydrochlorothiazide [facility] [address]-48 10-12.5 MG Orally 2 times a day Apr 18, 2014 take 0.5 tablet in a.m. and 0.5 tablet in the p.m. Procedures Procedure Coding System Code Date [facility] VISIT ESTABLISHED PATIENT CPT-4 G0467 Feb 01, 2015 Office Visit, Est Pt., Level 4 CPT-4 01705 Feb 01, 2015 GLYCATED HEMOGLOBIN TEST CPT-4 88220 Feb 01, 2015 Vital Signs Date/Time: Feb 01, 2015 Temperature 96.3 F Weight 269.9 lbs Height 70 in BMI 38.72 Index Blood Pressure Diastolic 80 mmHg Blood Pressure Systolic 130 mmHg Cardiac Monitoring Heart Rate 98 bpm Results Name Result Date Reference Range Unit Abnormality Flag A1C (IN HOUSE) Summary Purpose eClinicalWorks Submission
--- OUTSIDE RECORDS SUMMARY | 2017-09-18 11:13 | XMS REPORT ---
Author Author MELIZA THORNTON Organization [employer] Address Unknown Phone Unavailable Care Team Providers Care Loss Prevention/Safety District Manager Name Role Phone MELIZA THORNTON CP Unavailable Allergies No Known Allergies Problems Problem Type Condition ICD-9 Code Onset Dates Condition Status Problem Schizoaffective disorder, unspecified 295.70 Active Problem Ulcer of other part of foot 707.15 Active Problem Encounter for long-term (current) use of other medications V58.69 Active Problem Nondependent cannabis abuse, continuous 305.21 Active Problem Lower limb amputation, great toe V49.71 Active Problem Benign essential hypertension 401.1 Active Problem Dermatophytosis of foot 110.4 Active Problem Corns and callosities 700 Active Problem Cough 786.2 Active Problem Wheezing 786.07 Active Problem Other, mixed, or unspecified nondependent drug abuse, unspecified 305.90 Active Problem Diabetes mellitus without mention of complication, type I [juvenile type], uncontrolled 250.03 Active Problem Lower limb amputation, other toe(s) V49.72 Active Problem Counseling on substance use and abuse V65.42 Active Problem Unspecified hereditary and idiopathic peripheral neuropathy 356.9 Active Problem Nondependent tobacco use disorder 305.1 Active Problem Sciatica 724.3 Active Problem Dermatophytosis of nail 110.1 Active Medications No Known Medications Results No Known Results Summary Purpose eClinicalWorks Submission
--- OUTSIDE RECORDS SUMMARY | 2017-09-18 11:14 | XMS REPORT ---
Author ANIL Ribeiro [facility] e[employer]Works Address Unknown Phone Unavailable Care Team Providers Care Associate Programmer Analyst Name Role Phone ANIL KHOURY CP Unavailable Allergies No Known Allergies Problems Problem Type Condition Code Onset Dates Condition Status Problem HTN (hypertension) I10 Active Problem ED (erectile dysfunction) N52.9 Active Problem Diabetes E11.9 Active Assessment Back pain M54.9 Active Problem Insomnia G47.00 Active Problem Decubital [...] Instructions Start Date End Date Status Dosage Lyrica [facility] [address]-67 150 MG Orally Twice a day 1 capsule Results No Known Results Summary Purpose eClinicalWorks Submission
--- OUTSIDE RECORDS SUMMARY | 2017-09-18 11:14 | XMS REPORT ---
Author Author ANIL KHOURY Organization [facility] Address [address] [place] [address] Care Team Providers Care Manager Ship Name Role Phone KHOURYBOBBIANIL Unavailable PROBLEMS Type Condition ICD9-CM Code [id number] Code Onset Dates Condition Status SNOMED Code Problem ED (erectile dysfunction) N52.9 Active 635728514 Problem Restless legs syndrome G25.81 Active 649670486 Problem Abscess L02.91 Active 225368847 Problem DM neuro manif type II E11.49 Active 73779745 Problem Sinusitis, unspecified chronicity, unspecified location J32.9 Active 33977715 Problem Decubital ulcer L89.90 Active 197985514 Problem COPD (chronic obstructive pulmonary disease) J44.9 Active 27706944 Problem Cough R05 Active 97235252 Problem 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 399470634 Problem GERD (gastroesophageal reflux disease) K21.9 Active 395441889 Problem Diabetes E11.9 Active 63717293 Problem Back pain M54.9 Active 985358258 Problem HTN (hypertension) I10 Active 96016347 Problem Insomnia G47.00 Active 370025643 ALLERGIES No Information SOCIAL HISTORY Never Assessed PLAN OF CARE VITAL SIGNS MEDICATIONS Medication Instructions Dosage Frequency Start Date End Date Duration Status Hydrocodone-Ibuprofen 7.5-200 MG Orally 3 times a day 1 tablet as needed 8h 14 Jun, 2016 28 days Active RESULTS No Results PROCEDURES No Known procedures IMMUNIZATIONS No Known Immunizations MEDICAL (GENERAL) HISTORY Type Description Date Medical History hypertension Medical History Type 2 Diabetes Medical History Hep C Medical History Depression Medical History Anxiety Surgical History Right little toe amputation Hospitalization History Psych hospitalizations(numerous) Hospitalization History for surgeries
--- OUTSIDE RECORDS SUMMARY | 2017-09-18 11:14 | XMS REPORT ---
Author Author ANIL KHOURY Organization [facility] Address [address] [place] [address] Care Team Providers Care Catering Truck Operator Name Role Phone KHOURYBOBBIANIL Unavailable PROBLEMS Type Condition ICD9-CM Code [id number] Code Onset Dates Condition Status SNOMED Code Problem ED (erectile dysfunction) N52.9 Active 852949648 Problem Restless legs syndrome G25.81 Active 366599966 Problem Abscess L02.91 Active 353474952 Problem DM neuro manif type II E11.49 Active 12881927 Problem Sinusitis, unspecified chronicity, unspecified location J32.9 Active 61748004 Problem Decubital ulcer L89.90 Active 263038366 Problem COPD (chronic obstructive pulmonary disease) J44.9 Active 40398186 Problem Cough R05 Active 89625608 Problem 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 937819727 Problem GERD (gastroesophageal reflux disease) K21.9 Active 248510823 Problem Diabetes E11.9 Active 75022626 Problem Back pain M54.9 Active 615475239 Problem HTN (hypertension) I10 Active 93529679 Problem Insomnia G47.00 Active 059128359 ALLERGIES Unknown Allergies SOCIAL HISTORY No smoking Hx information available PLAN OF CARE VITAL SIGNS MEDICATIONS Medication Instructions Dosage Frequency Start Date End Date Duration Status Vicoprofen 7.5-200 MG Orally 3 times a day 1 tablet as needed 8h 17 Jun, 2015 28 days Active RESULTS No Results PROCEDURES No Known procedures IMMUNIZATIONS No Known Immunizations
--- OUTSIDE RECORDS SUMMARY | 2017-09-18 11:14 | XMS REPORT ---
Author Author ANIL Sanchez [facility] [address] Address [address] [place] [address] Care Team Providers Care Director Social Service Name Role Phone Daniel ANIL Unavailable PROBLEMS Type Condition ICD9-CM Code AVG19-MJ Code Onset Dates Condition Status SNOMED Code Problem HTN (hypertension) I10 Active 80583926 Problem Restless legs syndrome G25.81 Active 189162914 Problem GERD (gastroesophageal reflux disease) K21.9 Active 753422660 Problem ED (erectile dysfunction) N52.9 Active 056349130 Problem PAD (peripheral artery disease) I73.9 Active 729615382 Problem Ulcer of right foot, unspecified ulcer stage L97.519 Active 54212394 Problem 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 151206788 Problem COPD (chronic obstructive pulmonary disease) J44.9 Active 76088841 Problem DM neuro manif type II E11.49 Active 62395036 Problem Sinusitis, unspecified chronicity, unspecified location J32.9 Active 02680310 ALLERGIES No Information ENCOUNTERS Encounter Location Date Diagnosis [place] [id number] [place] [address] 06987- 5218 Aug, [facility] [id number] [place] [address] 63865- 6023 Jul, [facility] [id number] [place] [address] 25092- 1667 Jul, Back pain M54.9 [facility] [id number] [place] [address] 46931- 9162 Jul, [facility] [id number] [place] [address] 56167- 7322 09 Jul, 2017 DM neuro manif type II E11.49 and Ulcer of right foot, unspecified ulcer stage L97.519 [facility] [id number] [place] [address] 60722- 6797 Jun, [facility] [id number] [place] [address] 51050- 9345 Jun, [facility] [id number] [place] [address] 64310- 6318 May, 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 complication E11.49 ; GERD (gastroesophageal reflux disease) K21.9 and PAD ( peripheral artery disease) I73.9 [facility] [id number] [place] [address] 86126- 2414 May, Decubital ulcer L89.90 ; Diabetes E11.9 and GERD ( gastroesophageal reflux disease) K21.9 [facility] [id number] [place] [address] 81204- 3713 May, [facility] [id number] [place] [address] 13792- 5735 Apr, [facility] [id number] [place] [address] 58518- 1641 Mar, [facility] [id number] [place] [address] 37861- 2693 Mar, [facility] [id number] [place] [address] 56633- 5936 Feb, [facility] [id number] [place] [address] 59937- 7334 Feb, [facility] [id number] [place] [address] 52007- 2702 Jan, [facility] [id number] [place] [address] 44048- 3667 Jan, HTN (hypertension) I10 [facility] [id number] [place] [address] 59214- 5335 Jan, [facility] [id number] [place] [address] 97903- 2107 Dec, Back pain M54.9 [facility] [id number] [place] [address] 67479- 0312 Dec, Back pain M54.9 [facility] [id number] [place] [address] 92349 -7369 Dec, Encounter for immunization Z23 and Puncture wound of right foot, initial encounter S91.331A [facility] [id number] [place] [address] 41826- 2242 Dec, [facility] [id number] [place] [address] 96861- 6119 Nov, [facility] [id number] [place] [address] 07866- 5005 Nov, COPD (chronic obstructive pulmonary disease) J44.9 [facility] [id number] [place] [address] 36751- 1292 Nov, [facility] [id number] [place] [address] 38750- 8424 Oct, [facility] [id number] [place] [address] 96542- 5613 Oct, [facility] [id number] [place] [address] 08788- 1736 September, Onychomycosis B35.1 and DM neuro manif type II E11.49 [facility] [id number] [place] [address] 51191- 6424 September, [facility] [id number] [place] [address] 90761- 6564 Aug, [facility] [id number] [place] [address] 25330- 5397 Jul, Sinusitis, unspecified chronicity, unspecified location J32.[address] [facility] [id number] [place] [address] 05619- 6376 13 Jul, [address] [facility] [address] [address]- 5502 14 Jun, [address] [facility] [id number] [place] [address] 12897- 2755 06 Jun, 2016 COPD (chronic obstructive pulmonary disease) J44.9 [facility] [id number] [place] [address] 65227- 1859 May, [facility] [id number] [place] [address] 40208- 6381 May, [facility] [id number] [place] [address] 27848- 2792 May, Back pain M54.9 [facility] [id number] [place] [address] 19491- 1118 16 May, 2016 [facility] [id number] [place] [address] 31170- 1936 May, [facility] [id number] [place] [address] 41358- 7199 May, Diabetes E11.9 [facility] [id number] [place] [address] 87448- 9623 11 May, 2016 Diabetes E11.9 ; GERD [...] Need for hepatitis C screening test Z11.59 [facility] [address] [address]- 8185 May, HTN (hypertension) I10 [facility] [id number] [place] [address] 04816- 1319 Apr, [facility] [address] [facility] [id number] [address]- 9639 Apr, [facility] [address] [facility] [id number] [place] [address] 31132- 6747 Apr, [facility] [id number] [place] [address] 76724- 0286 Apr, [facility] [address] [facility] [id number] [place] [address] 93350- 9458 Apr, [facility] [address] [facility] [id number] [place] [address], [place] [address]- 6877 Mar, [facility] [id number] [place] [address] 34722- 8558 Mar, [facility] [id number] [place] [address] 21357- 8040 Mar, [facility] [id number] [place] [address] 78061- 1640 Mar, [facility] [id number] [place] [address] 75881- 5153 Mar, Dental examination Z01.20 [facility] [id number] [place] [address] 46739- 6655 Feb, [facility] [id number] [place] [address] 47691- 1968 Feb, [facility] [address] [address]- 4366 Feb, Back pain M54.9 [facility] [id number] [place] [address] 48274- 3788 Jan, [facility] [address] [facility] [id number] [address]- 9269 Jan, [facility] [address] [address]- 5866 Dec, Diabetes E11.9 ; GERD (gastroesophageal reflux disease) K21.9 ; ED (erectile dysfunction) N52.9 ; HTN (hypertension) I10 ; Insomnia G47.00 ; COPD (chronic obstructive pulmonary disease) J44.9 ; Neuropathy G62.9 [address] F[address].30 [facility] [id number] [place] [address] 39861- 7179 Dec, 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 complication E11.[address] [facility] [id number] [place] [address] 93591- 6546 Dec, [facility] [id number] [place] [address] 58398- 1022 Dec, [facility] [id number] [place] [address], [place] [address]- 3957 Dec, [facility] [id number] [place] [address], [place] [address]- 6169 Dec, [facility] [id number] [place] [address] 27082- 8601 Nov, [facility] [id number] [place] [address], [place] [address]- 2116 Nov, [facility] [id number] [place] [address] 45626- 2418 Oct, [facility] [id number] [place] [address], [place] [address]- 7188 Oct, [facility] [id number] [place] [address] 66075- 1116 Oct, Back pain M54.9 [facility] [id number] [place] [address], [place] [address]- 8575 Oct, [facility] [id number] [place] [address], [place] [address]- 7957 Oct, [facility] [id number] [place] [address] 53737- 7528 Oct, [facility] [address] [address]- 0459 Oct, HTN (hypertension) I10 [facility] [id number] [place] [address] 64530- 6128 Oct, Back pain M54.9 [facility] [id number] [place] [address] 81875- 9515 Oct, Chronic pain syndrome G89.4 [facility] [id number] [place] [address] 53192- 2565 September, Back pain M54.9 [place] [id number] [place] [address] 46200- 3246 September, HTN (hypertension) I10 [place] [id number] [place] [address] 53135- 6756 Aug, Porokeratosis Q82.8 ; Onychomycosis B35.1 and 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 complication E11.49 [place] [id number] [place] [address] 63215- 4925 Aug, GERD (gastroesophageal reflux disease) K21.9 ; Diabetes E11.9 ; HTN (hypertension) I10 ; Insomnia G47.00 ; Restless legs syndrome G25.81 ; COPD (chronic obstructive pulmonary disease) J44.9 ; Back pain M54.9 and Bipolar [address] [facility] [address] [address]- 6684 Aug, [facility] [id number] [place] [address] 86439- 2021 Aug, [facility] [id number] [place] [address] 17960- 8859 Aug, [facility] [id number] [place] [address] 81590- 3122 Aug, [facility] [id number] [address]- 2265 31 Jul, 2015 [facility] [id number] [place] [address] 27373- 1773 31 Jul, 2015 [facility] [address] [place] [address] 05387- 9293 30 Jul, 2015 [facility] [id number] [place] [address] 99862- 5048 16 Jul, 2015 [facility] [id number] [place] [address] 14700- 5891 15 Jul, 2015 [facility] [id number] [place] [address] 06275- 7382 Jul, [facility] [id number] [place] [address] 71191- 1761 17 Jun, 2015 Decubital ulcer L89.90 ; Diabetes E11.9 ; Back pain M54.9 ; HTN (hypertension) I10 and COPD (chronic obstructive pulmonary disease) J44.9 [facility] [id number] [place] [address] 97345- 5411 Jun, [facility] [id number] [place] [address] 34814- 3593 Jun, [facility] [address] [address]- 2606 Jun, [facility] [id number] [place] [address] 28915- 6558 Jun, [facility] [id number] [place] [address] 02847- 9507 Jun, Diabetes E11.9 ; Insomnia G47.00 ; Decubital ulcer L89.90 ; GERD (gastroesophageal reflux disease) K21.9 ; Back pain M54.9 ; Superficial fungus infection of skin B36.9 and HTN (hypertension) I10 [address] [id number] [id number] 02 Jun, [address] [facility] [address] [address]- 8923 May, [facility] [id number] [place] [address] 35174- 7724 May, [facility] [id number] [place] [address] 30175- 2807 May, [facility] [id number] [place] [address] 67472- 0459 May, Diabetes E11.9 ; HTN (hypertension) I10 and Decubital ulcer L89.90 [place] [id number] [place] [address] 31678- 9982 May, HTN (hypertension) I10 ; Decubital ulcer L89.90 and Diabetes E11.9 [place] [id number] [place] [address] 28004- 1987 Apr, Diabetes E11.9 ; GERD (gastroesophageal reflux disease) K21.9 ; Back pain M54.9 ; HTN (hypertension) I10 ; Restless legs syndrome G25.81 and Decubital ulcer L89.90 [place] [id number] [place] [address] 74481- 4092 Apr, [place] [address] [place] [address] 83881- 9982 Apr, Diabetes E11.9 ; HTN (hypertension) I10 ; Restless legs syndrome G25.81 ; GERD (gastroesophageal reflux disease) K21.9 and COPD ( chronic obstructive pulmonary disease) J44.9 [place] [address] [address]- 5011 Mar, [place] [id number] [place] [address] 12895- 7454 Mar, [facility] [address] [place] [address] 81775- 0412 Mar, Diabetes E11.9 ; Abscess L02.91 and Restless legs syndrome G25.81 [place] [id number] [place] [address] 17954- 9408 Mar, [place] [address] 00945- 4583 Feb, GERD (gastroesophageal reflux disease) K21.9 ; Back pain M54.9 ; ED (erectile dysfunction) N52.9 ; Diabetes E11.9 ; HTN (hypertension) I10 and Insomnia G47.00 [place] [address] 99205- 0691 Feb, [place] [address] 71615- 6054 Feb, [place] [address] 40225- 0835 Jan, [place] [address] 87557- 6915 Jan, Diabetes 250.00 ; Nondependent cannabis abuse, continuous 305.21 ; Cough 786.2 ; Schizoaffective disorder, unspecified 295.70 ; Sciatica 724.3 ; Other, mixed, or unspecified nondependent drug abuse, unspecified 305.90 ; Chronic pain 338.29 ; GERD (gastroesophageal reflux disease) 530.81 and HTN (hypertension) 401.9 [place] [id number] [place] [address] 45845- 2879 Jan, [place] [id number] [place] [address] 02619- 2562 Jan, [place] [id number] [place] [address] 39929- 2487 Jan, Chronic pain associated with significant psychosocial dysfunction 338.4 ; Diabetes mellitus without mention of complication, type I [ juvenile type], uncontrolled 250.03 ; Benign essential hypertension 401.1 ; Schizoaffective disorder, unspecified 295.70 ; Wheezing 786.07 ; Ear ache 388.70 ; Cough 786.2 ; Sciatica 724.3 and Foot pain, bilateral 729.5 [facility] [address] [address]- 1833 Dec, [facility] [address] [address]- 2135 Dec, [facility] [address] [address]- 6995 Dec, [facility] [id number] [place] [address] 22092- 0130 Dec, [facility] [address] [address]- 6203 Dec, [facility] [id number] [place] [address] 22437- 1004 Nov, Elevated liver enzymes 790.5 [facility] [id number] [place] [address] 71010- 4533 Nov, [facility] [address] [address]- 5615 Nov, [facility] [address] [address]- 8328 Nov, [facility] [address] [address]- 2579 Nov, Benign essential hypertension 401.1 ; Diabetes mellitus without mention of complication, type I [juvenile type], uncontrolled 250.03 and Nondependent cannabis abuse, continuous 305.21 [facility] [address] [address]- 8470 Oct, Cellulitis 682.9 and Benign essential hypertension 401.1 [facility] [address] [address]- 2983 Oct, [facility] [address] [address]- 2907 September, [facility] [address] [address]- 1791 September, [facility] [place] [facility] [address] [id number] [place] [address]- 9276 Aug, [facility] [place] [facility] [address] [id number] [place] [address]- 3255 Aug, [facility] [place] [facility] [address] [id number] [place] [address]- 2206 Aug, [facility] [place] [facility] [address] [id number] [place] [address]- 7712 Aug, [facility] [place] [facility] [address] [id number] [place] [address]- 7116 Jul, [facility] [place] [facility] [address] [id number] [place] [address]- 0069 Jul, [facility] [place] [facility] [address] [facility] [id number] [place] [address]- 9248 Jul, [facility] [place] [facility] [address] [id number] [place] [address]- 1104 Jul, [facility] [place] [facility] [address] [id number] [place] [address]- 4023 Jul, [facility] [place] [facility] [address] [id number] [place] [address]- 3471 Jul, [facility] [place] [facility] [address] [id number] [place] [address]- 8417 Jun, [facility] [place] [facility] [address] [id number] [address]- 1045 Jun, [facility] [place] [facility] [address] [id number] [place] [address]- 3618 Jun, [facility] [place] [facility] [address] [id number] [place] [address]- 7493 Jun, [facility] [place] [facility] [address] [facility] [id number] [place] [address]- 6206 Jun, [facility] [place] [facility] [address] [id number] [place] [address]- 1255 May, [facility] [address] [id number] [place] [address]- 6986 May, [facility] [address] [id number] [place] [address]- 9298 May, [facility] [address] [id number] [place] [address]- 9987 May, [facility] [address] [id number] [place] [address]- 2287 May, [facility] [address] [id number] [place] [address]- 6743 May, [facility] [address] [id number] [place] [address]- 0548 May, [facility] [address] [id number] [place] [address]- 3293 May, [facility] [address] [id number] [place] [address]- 0525 Apr, [facility] [address] [id number] [place] [address]- 3059 Apr, [facility] [address] [id number] [place] [address]- 6951 Apr, [facility] [address] [id number] [place] [address]- [address] Apr, [facility] [address] [id number] [place] [address] Mar, [facility] [place] [facility] [address] [id number] [place] [address] Mar, [facility] [place] [facility] [address] [id number] [place] [address] Mar, [facility] [address] [id number] [place] [address] Mar, [facility] [place] [facility] [address] [id number] [place] [address] Feb, [facility] [place] [facility] [address] [id number] [place] [address] Feb, [facility] [place] [facility] [address] [id number] [place] [address] Feb, [facility] [place] [facility] [address] [id number] [place] [address] Feb, [facility] [place] [facility] [address] [id number] [place] [address] Feb, [facility] [place] [facility] [address] [id number] [place] [address] Feb, [facility] [place] [facility] [address] [id number] [place] [address] Jan, [facility] [place] [facility] [address] [id number] [place] [address] Jan, [facility] [place] [facility] [address] [id number] [place] [address] Jan, [facility] [place] [facility] [address] [id number] [place] [address] Jan, [facility] [place] [facility] [address] [id number] [address] Dec, [facility] [place] [facility] [address] [id number] [address] Dec, [facility] [place] [facility] [address] [id number] [place] [address] Dec, [facility] [place] [facility] [address] [id number] [place] [address] Dec, [facility] [place] [facility] [address] [id number] [address] Dec, [facility] [place] [facility] [address] [id number] [place] [address] Dec, [facility] [place] [facility] [address] [id number] [place] [address] Oct, [facility] [place] [facility] [address] [id number] [place] [address] Oct, [facility] [place] [facility] [address] [id number] [place] [address] September, [facility] [place] [facility] [address] [id number] [place] [address] September, [facility] [place] [facility] [address] [id number] [place] [address] September, [facility] [place] [facility] [address] [id number] [place] [address] September, [facility] [place] [facility] [address] [id number] [place] [address] September, [facility] [place] [facility] [address] [id number] [place] [address] September, [facility] [place] [facility] [address] [id number] [place] [address] Aug, [facility] [place] [facility] [address] [id number] [place] [address] Aug, [facility] [place] [facility] [address] [id number] [place] [address] Aug, [facility] [place] [facility] [address] [id number] [place] [address] Aug, [facility] [place] [facility] [address] [id number] [place] [address] Jul, [facility] [place] [facility] [address] [id number] [place] [address] Jul, [facility] [place] [facility] [address] [id number] [place] [address] 24 Jun, 2013 [facility] [place] [facility] [address] [id number] [place] [address] Jun, [facility] [place] [facility] [address] [id number] [place] [address] May, [facility] [place] [facility] [address] [id number] [place] [address] May, [facility] [place] [facility] [address] [id number] [place] [address] Jan, [facility] [place] [facility] [address] [id number] [place] [address] Dec, [facility] [place] [facility] [address] [id number] [place] [address] Jun, [facility] [place] [facility] [address] [id number] [place] [address] May, [facility] [place] [facility] [address] [id number] [place] [address] Nov, [facility] [place] [facility] [address] [id number] [place] [address] September, [facility] [address] [id number] [place] [address] Aug, [facility] [place] [facility] [address] [id number] [place] [address] Aug, [facility] [place] [facility] [address] [id number] [place] [address] Aug, [facility] [place] [facility] [address] [id number] [place] [address] Aug, [facility] [place] [facility] [address] [id number] [place] [address] Nov, [facility] [place] [facility] [address] [id number] [place] [address] Oct, [facility] [place] [facility] [address] [id number] [place] [address] Jul, [facility] [address] [id number] [address] Feb, [facility] [id number] [address] Feb, [facility] [id number] [address] Apr, [facility] [id number] [address] Apr, [facility] [address] [id number] [address] Feb, [facility] [id number] [address] Feb, [facility] [address] [id number] [address] Jul, IMMUNIZATIONS No Known Immunizations SOCIAL HISTORY Never Assessed [facility] VITAL SIGNS MEDICATIONS Unknown [...]
--- OUTSIDE RECORDS SUMMARY | 2017-09-18 11:14 | XMS REPORT ---
Author Author YVES BLEVINS [facility] Address [address] [place] [address] Care Team Providers Care General Neurologist Name Role Phone YVES BLEVINS Unavailable PROBLEMS Type Condition ICD9-CM Code BVD26-SG Code Onset Dates Condition Status SNOMED Code Problem HTN (hypertension) I10 Active 59741137 Problem Restless legs syndrome G25.81 Active 751270001 Problem GERD (gastroesophageal reflux disease) K21.9 Active 914726565 Problem ED (erectile dysfunction) N52.9 Active 855408231 Problem PAD (peripheral artery disease) I73.9 Active 629113523 Problem Ulcer of right foot, unspecified ulcer stage L97.519 Active 23968932 Problem 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 891110807 Problem COPD (chronic obstructive pulmonary disease) J44.9 Active 33188879 Problem DM neuro manif type II E11.49 Active 34981992 Problem Sinusitis, unspecified chronicity, unspecified location J32.9 Active 57213197 ALLERGIES No Information ENCOUNTERS Encounter Location Date Diagnosis [facility] [id number] [place] [address] 40877- 6112 Aug, [facility] [id number] [place] [address] 21701- 1493 Aug, Back pain M54.9 [facility] [id number] [place] [address] 73528- 0845 Jul, [facility] [id number] [place] [address] 54084- 1447 Jul, Back pain M54.9 [facility] [id number] [place] [address] 28452- 4284 Jul, [facility] [address] 38002- 6275 Jul, DM neuro manif type II E11.49 and Ulcer of right foot, unspecified ulcer stage L97.519 [facility] [id number] [place] [address] 44136- 1689 Jun, [facility] [address] 19448- 0545 Jun, [facility] [address] 25213- 8565 May, 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 complication E11.49 ; GERD (gastroesophageal reflux disease) K21.9 and PAD ( peripheral artery disease) I73.9 [place] [address] 01339- 3455 May, Decubital ulcer L89.90 ; Diabetes E11.9 and GERD ( gastroesophageal reflux disease) K21.9 [place] [address] 69418- 7717 May, [facility] [address] 99677- 0595 Apr, [place] [address] 82596- 9557 Mar, [facility] [id number] [place] [address] 47348- 3207 Mar, [facility] [address] 87531- 4159 Feb, [facility] [id number] [place] [address] 74507- 5144 Feb, [facility] [address] 76717- 6804 Jan, [facility] [id number] [place] [address] 96177- 3102 Jan, HTN (hypertension) I10 [place] [address] 37976- 2062 Jan, [facility] [address] [address]- 6586 Dec, Back pain M54.9 [facility] [id number] [place] [address] 83656- 5491 Dec, Back pain M54.9 [facility] [id number] [place] [address] 66189 -9382 Dec, Encounter for immunization Z23 and Puncture wound of right foot, initial encounter S91.331A [facility] [id number] [place] [address] 85817- 2289 Dec, [facility] [id number] [place] [address] 58894- 7207 Nov, [facility] [id number] [place] [address] 03099- 9291 Nov, COPD (chronic obstructive pulmonary disease) J44.9 [facility] [id number] [place] [address] 60776- 5814 Nov, [facility] [id number] [place] [address] 90898- 4198 Oct, [facility] [id number] [place] [address] 89705- 0057 Oct, [facility] [id number] [place] [address] 05352- 7350 September, Onychomycosis B35.1 and DM neuro manif type II E11.49 [facility] [id number] [place] [address] 74588- 3096 September, [facility] [id number] [place] [address] 48367- 4183 Aug, [facility] [id number] [place] [address] 14420- 7909 Jul, Sinusitis, unspecified chronicity, unspecified location J32.9 and Cough R05 [facility] [address] [place] [address] 21363- 4854 13 Jul, 2016 Back pain M54.9 [facility] [id number] [place] [address] 09068- 6218 14 Jun, 2016 Back pain M54.9 [facility] [id number] [place] [address] 67858- 2556 06 Jun, 2016 COPD (chronic obstructive pulmonary disease) J44.9 [facility] [id number] [place] [address] 20754- 5984 May, [facility] [id number] [place] [address] 26115- 9451 May, [facility] [id number] [place] [address] 94134- 8533 May, Back pain M54.9 [facility] [id number] [place] [address] 10187- 6138 16 May, 2016 [facility] [id number] [place] [address] 81545- 2928 May, [facility] [id number] [place] [address] 94389- 7249 May, Diabetes E11.9 [facility] [address] [place] [address] 30578- 0947 May, Diabetes E11.9 ; GERD (gastroesophageal reflux [...] Need for hepatitis C screening test Z11.59 [facility] [address] [place] [address] 93146- 1709 May, HTN (hypertension) I10 [facility] [address] [id number] [place] [address]- 8133 Apr, [facility] [address] [id number] [place] [address]- 9637 Apr, [facility] [address] [id number] [place] [address]- 3702 Apr, [facility] [id number] [place] [address], [place] [address]- 2053 Apr, [facility] [address] [id number] [place] [address], [place] [address]- 4716 Apr, [facility] [address] [facility] [id number] [place] [address], [place] [address]- 2661 Mar, [facility] [id number] [place] [address], [place] [address]- 0141 Mar, [facility] [id number] [place] [address] 85012- 0290 Mar, [facility] [address] [facility] [id number] [place] [address]- 9467 Mar, [facility] [id number] [address]- 2896 Mar, Dental examination Z01.20 [facility] [id number] [address]- 9475 Feb, [facility] [address] [facility] [id number], [place] [address]- 8384 Feb, [facility] [address] [facility] [id number] [address]- 7746 Feb, Back pain M54.9 [facility] [address] [id number] [place] [address]- 9049 Jan, [facility] [address] [facility] [id number] [address]- 8192 Jan, [facility] [address] [address]- 1639 Dec, Diabetes E11.9 ; GERD (gastroesophageal reflux disease) K21.9 ; ED (erectile dysfunction) N52.9 ; HTN (hypertension) I10 ; Insomnia G47.00 ; COPD (chronic obstructive pulmonary disease) J44.9 ; Neuropathy G62.9 and Bipolar depression F31.30 [facility] [id number] [place] [address] 05305- 9224 Dec, 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 complication E11.49 and Onychomycosis B35.1 [facility] [id number] [place] [address] 04813- 0177 Dec, [facility] [id number] [place] [address] 92443- 2767 Dec, [facility] [id number] [place] [address] 20477- 7795 Dec, [facility] [id number] [place] [address] 29170- 0827 Dec, [facility] [id number] [place] [address] 54561- 1025 Nov, [facility] [id number] [address]- 8729 Nov, [facility] [id number] [place] [address] 80977- 8808 Oct, [facility] [id number] [place] [address] 74235- 8910 Oct, [facility] [id number] [place] [address] 66086- 8889 Oct, Back pain M54.9 [facility] [id number] [address]- 5672 Oct, [facility] [id number] [place] [address] 53198- 3442 Oct, [facility] [address] [place] [address] 79010- 5213 Oct, [facility] [id number] [place] [address] 90304- 2813 Oct, HTN (hypertension) I10 [facility] [id number] [place] [address] 76611- 0050 Oct, Back pain M54.9 [facility] [address] 80321- 0353 Oct, Chronic pain syndrome G89.4 [place] [address] 76991- 5112 September, Back pain M54.9 [place] [id number] [place] [address] 44711- 7917 September, HTN (hypertension) I10 [place] [id number] [place] [address] 39138- 7445 Aug, Porokeratosis Q82.8 ; Onychomycosis B35.1 and 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 complication E11.49 [place] [id number] [place] [address] 15991- 1955 Aug, GERD (gastroesophageal reflux disease) K21.9 ; Diabetes E11.9 ; HTN (hypertension) I10 ; Insomnia G47.00 ; Restless legs syndrome G25.81 ; COPD (chronic obstructive pulmonary disease) J44.9 ; Back pain M54.9 and Bipolar 1 disorder F31.9 [facility] [address] [place] [address] 70239- 3314 Aug, [place] [id number] [place] [address] 17127- 0540 Aug, [facility] [id number] [place] [address] 94665- 7045 Aug, [place] [id number] [place] [address] 11747- 5557 Aug, [facility] [address] [address]- 5164 Jul, [facility] [address] [place] [address] 48726- 4582 Jul, [facility] [id number] [place] [address] 43893- 2926 30 Jul, 2015 [facility] [id number] [place] [address] 25401- 5160 Jul, [facility] [address] [place] [address] 83267- 1755 Jul, [facility] [id number] [place] [address] 43098- 9280 Jul, [facility] [id number] [place] [address] 91106- 9199 Jun, Decubital ulcer L89.90 ; Diabetes E11.9 ; Back pain M54.9 ; HTN (hypertension) I10 and COPD (chronic obstructive pulmonary disease) J44.9 [facility] [id number] [place] [address] 33543- 1035 Jun, [facility] [address] [place] [address] 27368- 3372 Jun, [facility] [id number] [place] [address] 06140- 5510 Jun, [facility] [address], [place] [address]- 9534 Jun, [facility] [id number] [place] [address] 07324- 0352 Jun, Diabetes E11.9 ; Insomnia G47.00 ; Decubital ulcer L89.90 ; GERD (gastroesophageal reflux disease) K21.9 ; Back pain M54.9 ; Superficial fungus infection of skin B36.9 and HTN (hypertension) I10 [place] [address] [facility] [id number] [place] [id number] Jun, Dental examination Z01.20 [facility] [address] [address]- 2254 May, [facility] [address] [address]- 0098 May, [facility] [address] [address]- 1696 May, [facility] [address] [address]- 2847 May, Diabetes E11.9 ; HTN (hypertension) I10 and Decubital ulcer L89.90 [place] [address] [address]- 0621 May, HTN (hypertension) I10 ; Decubital ulcer L89.90 and Diabetes E11.9 [place] [address], [place] [address]- 7685 30 Apr, 2015 Diabetes E11.9 ; GERD (gastroesophageal reflux disease) K21.9 ; Back pain M54.9 ; HTN (hypertension) I10 ; Restless legs syndrome G25.81 and Decubital ulcer L89.90 [place] [address] [address]- 9229 Apr, [place] [address] [address]- 3053 Apr, Diabetes E11.9 ; HTN (hypertension) I10 ; Restless legs syndrome G25.81 ; GERD (gastroesophageal reflux disease) K21.9 and COPD ( chronic obstructive pulmonary disease) J44.9 [place] [address] [address]- 7650 Mar, [place] [address] [address]- 0417 Mar, [facility] [address] [place] [address] 04818- 2987 Mar, Diabetes E11.9 ; Abscess L02.91 and Restless legs syndrome G25.81 [place] [address] 26640- 3362 Mar, [place] [id number] [place] [address] 33463- 0867 Feb, GERD (gastroesophageal reflux disease) K21.9 ; Back pain M54.9 ; ED (erectile dysfunction) N52.9 ; Diabetes E11.9 ; HTN (hypertension) I10 and Insomnia G47.00 [place] [address] 39543- 9577 Feb, [place] [address] 30271- 4974 Feb, [place] [address] 98912- 8397 Jan, [place] [id number] [place] [address] 96772- 2319 Jan, Diabetes 250.00 ; Nondependent cannabis abuse, continuous 305.21 ; Cough 786.2 ; Schizoaffective disorder, unspecified 295.70 ; Sciatica 724.3 ; Other, mixed, or unspecified nondependent drug abuse, unspecified 305.90 ; Chronic pain 338.29 ; GERD (gastroesophageal reflux disease) 530.81 and HTN (hypertension) 401.9 [place] [id number] [place] [address] 22820- 9639 Jan, [place] [id number] [place] [address] 29680- 5805 Jan, [place] [id number] [place] [address] 37921- 1957 Jan, Chronic pain associated with significant psychosocial dysfunction 338.4 ; Diabetes mellitus without mention of complication, type I [ juvenile type], uncontrolled 250.03 ; Benign essential hypertension 401.1 ; Schizoaffective disorder, unspecified 295.70 ; Wheezing 786.07 ; Ear ache 388.70 ; Cough 786.2 ; Sciatica 724.3 and Foot pain, bilateral 729.5 [facility] [address] 07113- 5360 Dec, [facility] [id number] [place] [address] 90740- 4616 Dec, [facility] [address] 69398- 5117 Dec, [facility] [address] 56734- 1442 Dec, [facility] [address] 12059- 9415 Dec, [facility] [address] 95657- 4244 Nov, Elevated liver enzymes 790.5 [facility] [address] 43013- 0966 Nov, [facility] [id number] [place] [address] 61579- 0628 Nov, [facility] [id number] [place] [address] 50626- 1436 Nov, [facility] [id number] [place] [address] 98943- 5240 Nov, Benign essential hypertension 401.1 ; Diabetes mellitus without mention of complication, type I [juvenile type], uncontrolled 250.03 and Nondependent cannabis abuse, continuous 305.21 [facility] [id number] [place] [address] 39495- 6513 Oct, Cellulitis 682.9 and Benign essential hypertension 401.1 [facility] [id number] [place] [address] 37869- 1867 Oct, [facility] [id number] [place] [address] 65662- 6275 September, [facility] [place] [facility] [address] [id number] [place] [address]- 9032 September, [facility] [place] [facility] [address] [id number] [place] [address]- 5909 Aug, [facility] [place] [facility] [address] [id number] [place] [address]- 5687 Aug, [facility] [place] [facility] [address] [id number] [place] [address]- 5763 Aug, [facility] [place] [facility] [address] [id number] [place] [address]- 0918 Aug, [facility] [place] [facility] [address] [id number] [place] [address]- 3969 Jul, [facility] [place] [facility] [address] [id number] [place] [address]- 1046 Jul, [facility] [place] [facility] [address] [id number] [place] [address]- 9648 Jul, [facility] [place] [facility] [address] [id number] [place] [address]- 6539 Jul, [facility] [place] [facility] [address] [id number] [place] [address]- 6326 Jul, [facility] [place] [facility] [address] [id number] [place] [address]- 4024 Jul, [facility] [place] [facility] [address] [id number] [address]- 2029 Jun, [facility] [place] [facility] [address] [id number] [place] [address]- 9747 Jun, [facility] [place] [facility] [address] [id number] [place] [address]- 0736 Jun, [facility] [place] [facility] [address] [id number] [place] [address]- 1930 Jun, [facility] [place] [facility] [address] [id number] [place] [address]- 9066 Jun, [facility] [address] [id number] [place] [address]- 4385 May, [facility] [place] [facility] [address] [id number] [place] [address]- 8631 May, [facility] [place] [facility] [address] [id number] [place] [address]- 3450 May, [facility] [place] [facility] [address] [id number] [place] [address]- 4677 May, [facility] [place] [facility] [address] [id number] [place] [address]- 4226 May, [facility] [place] [facility] [address] [id number] [place] [address]- 9787 May, [facility] [place] [facility] [address] [id number] [place] [address]- 9990 May, [facility] [place] [facility] [address] [id number] [place] [address]- 4864 May, [facility] [place] [facility] [address] [id number] [place] [address]- 0818 Apr, [facility] [place] [facility] [address] [id number] [place] [address]- 5898 Apr, [facility] [place] [facility] [address] [id number] [place] [address]- 0800 Apr, [facility] [place] [facility] [address] [id number] [place] [address]- 4876 Apr, [facility] [place] [facility] [address] [id number] [place] [address]- 9593 Mar, [facility] [place] [facility] [address] [id number] [place] [address]- 6556 Mar, [facility] [place] [facility] [address] [id number] [place] [address]- 2742 Mar, [facility] [place] [facility] [address] [id number] [place] [address]- 5672 Mar, [facility] [place] [facility] [address] [id number] [place] [address]- 1216 Feb, [facility] [place] [facility] [address] [id number] [place] [address]- 4289 Feb, [facility] [place] [facility] [address] [id number] [place] [address]- 7165 Feb, [facility] [place] [facility] [address] [id number] [place] [address]- 1690 Feb, [facility] [place] [facility] [address] [id number] [place] [address]- 3817 Feb, [facility] [place] [facility] [address] [id number] [place] [address]- 1919 Feb, [facility] [place] [facility] [address] [id number] [place] [address]- 5100 Jan, [facility] [place] [facility] [address] [id number] [place] [address]- 9547 Jan, [facility] [place] [facility] [address] [id number] [place] [address]- 4966 Jan, [facility] [place] [facility] [address] [id number] [place] [address]- 1043 Jan, [facility] [place] [facility] [address] [id number] [place] [address]- 2606 Dec, [facility] [place] [facility] [address] [id number] [place] [address]- 9603 Dec, [facility] [place] [facility] [address] [id number] [place] [address]- 5894 Dec, [facility] [place] [facility] [address] [id number] [place] [address] Dec, [facility] [place] [facility] [address] [id number] [place] [address] Dec, [facility] [place] [facility] [address] [id number] [place] [address] Dec, [facility] [place] [facility] [address] [id number] [place] [address] Oct, [facility] [place] [facility] [address] [id number] [place] [address] Oct, [facility] [place] [facility] [address] [id number] [place] [address] September, [facility] [place] [facility] [address] [id number] [place] [address] September, [facility] [place] [facility] [address] [id number] [place] [address] September, [facility] [place] [facility] [address] [id number] [place] [address] September, [facility] [place] [facility] [address] [id number] [place] [address] September, [facility] [place] [facility] [address] [id number] [place] [address] September, [facility] [place] [facility] [address] [id number] [place] [address] Aug, [facility] [place] [facility] [address] [id number] [place] [address] Aug, [facility] [place] [facility] [address] [id number] [place] [address] Aug, [facility] [place] [facility] [address] [id number] [place] [address] Aug, [facility] [place] [facility] [address] [id number] [place] [address] Jul, [facility] [place] [facility] [address] [id number] [place] [address] Jul, [facility] [place] [facility] [address] [id number] [place] [address] Jun, [facility] [address] [id number] [place] [address] Jun, [facility] [address] [id number] [place] [address] May, [facility] [address] [id number] [place] [address] May, [facility] [address] [id number] [place] [address] Jan, [facility] [address] [id number] [place] [address] Dec, [facility] [address] [id number] [place] [address] Jun, [facility] [address] [id number] [place] [address] May, [facility] [address] [id number] [place] [address] Nov, [facility] [address] [id number] [place] [address] September, [facility] [address] [id number] [place] [address] Aug, [facility] [address] [id number] [place] [address] Aug, [facility] [address] [id number] [place] [address] Aug, [facility] [place] [facility] [address] [id number] [place] [address] Aug, [facility] [place] [facility] [address] [id number] [place] [address] Nov, [facility] [place] [facility] [address] [id number] [place] [address] Oct, [facility] [address] [id number] [address] Jul, [facility] [id number] [address] Feb, [facility] [address] [id number] [address] Feb, [facility] [id number] [address] Apr, [facility] [id number] [address] Apr, [facility] [id number] [address] Feb, [facility] [id number] [address] Feb, [facility] [address] [id number] [address] Jul, IMMUNIZATIONS No Known Immunizations SOCIAL HISTORY Never Assessed REASON FOR VISIT Hydrocodone- 01/06 PLAN OF CARE VITAL SIGNS MEDICATIONS Medication Instructions Dosage Frequency Start Date End Date Duration Status Vicoprofen 7.5-200 MG Orally 3 times a day 1 tablet as needed 8h Jun, 28 days Active RESULTS No Results PROCEDURES No Known procedures INSTRUCTIONS MEDICATIONS ADMINISTERED No Known Medications MEDICAL (GENERAL) HISTORY Type Description Date Medical History hypertension Medical History Type 2 Diabetes Medical History Hep C Medical History Depression Medical History Anxiety Surgical History Right little toe amputation Hospitalization History Psych hospitalizations(numerous) Hospitalization History for surgeries
--- OUTSIDE RECORDS SUMMARY | 2017-09-18 11:15 | XMS REPORT ---
Author ANIL Ribeiro [facility] eClinicalWorks Address Unknown Phone Unavailable Care Team Providers Care Store Operations Associate Name Role Phone ANIL KHOURY Unavailable Allergies, Adverse Reactions, Alerts Substance Reaction Event Type Latex Info Not Available Drug Allergy Thorazine Info Not Available Drug Allergy Haldol Info Not Available Drug Allergy Problems Problem Type Condition Code Onset Dates Condition Status Problem Insomnia G47.00 Active Problem Diabetes E11.9 Active Problem HTN (hypertension) I10 Active Problem COPD (chronic obstructive pulmonary disease) J44.9 Active Problem Abscess L02.91 Active Problem Decubital ulcer L89.90 Active Problem Back pain M54.9 Active Problem ED (erectile dysfunction) N52.9 Active Problem Restless legs syndrome G25.81 Active Problem GERD (gastroesophageal reflux disease) K21.9 Active Assessment HTN (hypertension) I10 Active Assessment GERD (gastroesophageal reflux disease) K21.9 Active Assessment Decubital ulcer L89.90 Active Assessment Superficial fungus infection of skin B36.9 Active Assessment Insomnia G47.00 Active Assessment Back pain M54.9 Active Assessment Diabetes E11.9 Active Medications Medication Code System Code Instructions Start Date End Date Status Dosage Test strips NDC 0 1 Once a day Mar 28, 2015 as directed Metoprolol Succinate ER [facility] [address]-08 50 MG Orally Once a day Jun 06, 2015 1 tablet Vicoprofen [facility] [address]-52 7.5-200 MG Orally 2 times a day Mar 28, 2015 Jun 25, 2015 1 tablet as needed benztropine NDC 0 1 mg Jan 03, 2014 take 1 tablet (1 mg) by oral route 3 times per day Depakote [facility] [address]-88 500 MG Orally 3 times a day May 16, 2015 1 tablet Metformin HCl [facility] [address]-89 1000 MG Orally Twice a day Apr 24, 2015 1 tablet with meals Vistaril [facility] [address]-53 50 mg Jan 03, 2014 take 1 capsule (50 mg) by oral route 4 times per day Elavil [facility] 0 75 Once a day Dec 09, 2012 1-2 tablet by Oral route 1 time per day Invega Sustenna [facility] [address]-22 234 mg/1.5 mL Apr 18, 2014 every 3 weeks Cymbalta [facility] [address]-72 60 MG Orally Once a day May 16, 2015 1 capsule Pepcid [facility] [address]-37 40 MG Orally Once a day Mar 02, 2015 1 tablet Lyrica [facility] [address]-31 150 MG Orally Twice a day 1 capsule [facility] Blood Glucose Meter [facility] 8396-714366 w/Device Once a day Mar 28, 2015 as directed Actos [facility] [address]-95 45 MG Orally Once a day May 09, 2015 1 tablet Ketoconazole [facility] [address]-02 2 % Externally Once a day Jun 13, 2015 1 application to affected area Requip [facility] [address]-82 3 MG Orally Once a day Mar 28, 2015 1 tablet 1 to 3 hours before bedtime Lisinopril-Hydrochlorothiazide [facility] [address]-33 20-25 MG Orally Once a day Apr 24, 2015 1 tablet Norvasc [facility] [address]-27 10 MG Orally Once a day May 16, 2015 1 tablet Silvadene [facility] [address]-78 1 % Externally Once a day May 09, 2015 1 application to affected area Procedures Procedure Coding System Code Date Office Visit, Est Pt., Level 4 CPT-4 42115 Jun 13, 2015 [facility] VISIT ESTABLISHED PATIENT CPT-4 G0467 Jun 13, 2015 Vital Signs Date/Time: Jun 13, 2015 Temperature 97.7 F Weight 267.0 lbs Height 70 in BMI 38.31 Index Blood Pressure Diastolic 86 mmHg Blood Pressure Systolic 130 mmHg Cardiac Monitoring Heart Rate 104 bpm Results No Known Results Summary Purpose eClinicalWorks Submission
--- OUTSIDE RECORDS SUMMARY | 2017-09-18 11:15 | XMS REPORT ---
Author Author ANIL KHOURY Organization [facility] Address [address] [place] [address] Care Team Providers Care Cook Sauce Name Role Phone IRAIDA ANIL Unavailable PROBLEMS Type Condition ICD9-CM Code [id number] Code Onset Dates Condition Status SNOMED Code Problem GERD (gastroesophageal reflux disease) K21.9 Active 978722894 Problem Abscess L02.91 Active 967584161 Problem Restless legs syndrome G25.81 Active 016744300 Problem DM neuro manif type II E11.49 Active 30696229 Problem Sinusitis, unspecified chronicity, unspecified location J32.9 Active 98386720 Problem Decubital ulcer L89.90 Active 546862129 Problem COPD (chronic obstructive pulmonary disease) J44.9 Active 05727557 Problem Cough R05 Active 46411724 Problem 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
--- OUTSIDE RECORDS SUMMARY | 2017-09-18 11:15 | XMS REPORT ---
Author ANIL Ribeiro [facility] eClinicalWorks Address Unknown Phone Unavailable Care Team Providers Care Acute Care Nurse Name Role Phone ANIL KHOURY Unavailable Allergies [...] Problem Schizoaffective disorder, unspecified 295.70 Active Medications No Known Medications Results No Known Results Summary Purpose eClinicalWorks Submission
--- OUTSIDE RECORDS SUMMARY | 2017-09-18 11:15 | XMS REPORT ---
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 Name Role Phone IRAIDA ANIL Unavailable PROBLEMS Type Condition ICD9-CM Code [id number] Code Onset Dates Condition Status SNOMED Code Problem ED (erectile dysfunction) N52.9 Active 791638894 Problem Restless legs syndrome G25.81 Active 026056421 Problem Abscess L02.91 Active 840430989 Problem DM neuro manif type II E11.49 Active 90007303 Problem Sinusitis, unspecified chronicity, unspecified location J32.9 Active 85993335 Problem Decubital ulcer L89.90 Active 608409703 Problem COPD (chronic obstructive pulmonary disease) J44.9 Active 75731772 Problem Cough R05 Active 08607272 Problem 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 702758038 Problem GERD (gastroesophageal reflux disease) K21.9 Active 752765119 Problem Diabetes E11.9 Active 30035452 Problem Back pain M54.9 Active 080597371 Problem HTN (hypertension) I10 Active 92169204 Problem Insomnia G47.00 Active 259684385 ALLERGIES Unknown Allergies SOCIAL HISTORY No smoking Hx information available PLAN OF CARE VITAL SIGNS MEDICATIONS Medication Instructions Dosage Frequency Start Date End Date Duration Status Metformin HCl 1000 MG Orally Twice a day 1 tablet with meals 12h 15 Apr, 2015 90 days Active RESULTS No Results PROCEDURES No Known procedures IMMUNIZATIONS No Known Immunizations
--- OUTSIDE RECORDS SUMMARY | 2017-09-18 11:15 | XMS REPORT ---
Author ANIL Ribeiro [facility] eClinicalWorks Address Unknown Phone Unavailable Care Team Providers Care Medical Malpractice Paralegal Name Role Phone ANIL KHOURY CP Unavailable Allergies, Adverse Reactions, Alerts Substance Reaction Event Type Thorazine Info Not Available Drug Allergy Haldol Info Not Available Drug Allergy Problems Problem Type Condition Code Onset Dates Condition Status Assessment Insomnia G47.00 Active Assessment HTN (hypertension) I10 Active Assessment Diabetes E11.9 Active Assessment ED (erectile dysfunction) N52.9 Active Assessment Back pain M54.9 Active Assessment GERD (gastroesophageal reflux disease) K21.9 Active Problem Wheezing 786.07 Active Problem Other, mixed, or unspecified nondependent drug abuse, unspecified 305.90 Active Problem Cough 786.2 Active Problem Diabetes mellitus without mention of complication, type I [juvenile type], uncontrolled 250.03 Active Problem Lower limb amputation, great toe V49.71 Active Problem Benign essential hypertension 401.1 Active Problem Nondependent cannabis abuse, continuous 305.21 Active Problem Back pain M54.9 Active Problem ED (erectile dysfunction) N52.9 Active Problem Lower limb amputation, other toe(s) V49.72 Active Problem Sciatica 724.3 Active Problem GERD (gastroesophageal reflux disease) K21.9 Active Problem Unspecified hereditary and idiopathic peripheral neuropathy 356.9 Active Problem Insomnia G47.00 Active Problem Diabetes 250.00 Active Problem Diabetes E11.9 Active Problem HTN (hypertension) I10 Active Problem Dermatophytosis of nail 110.1 Active Problem Schizoaffective disorder, unspecified 295.70 Active Problem Counseling on substance use and abuse V65.42 Active Problem Nondependent tobacco use disorder 305.1 Active Problem Corns and callosities 700 Active Problem Dermatophytosis of foot 110.4 Active Problem Encounter for long-term (current) use of other medications V58.69 Active Problem Ulcer of other part of foot 707.15 Active Medications Medication Code System Code Instructions Start Date End Date Status Dosage Pepcid [facility] [address]-21 40 MG Orally Once a day Mar 02, 2015 1 tablet Lyrica [facility] [address]-55 150 MG Twice a day May 23, 2014 take 1 capsule (150 mg) by oral route 2 times per day Diagnosis codes (729.1) (356.9) Lisinopril-Hydrochlorothiazide [facility] [address]-69 10-12.5 MG Orally 2 times a day Apr 18, 2014 take 0.5 tablet in a.m. and 0.5 tablet in the p.m. Invega Sustenna [facility] [address]-34 234 mg/1.5 mL Apr 18, 2014 every 3 weeks Pepcid [facility] [address]-74 20 MG May 31, 2014 1 tablet by Oral route 2 times per day Vistaril [facility] [address]-76 50 mg Jan 03, 2014 take 1 capsule (50 mg) by oral route 4 times per day benztropine [place] 0 1 mg Jan 03, 2014 take 1 tablet (1 mg) by oral route 3 times per day Ultram [facility] [address]-50 50 MG Orally 4 times a day Jan 09, 2015 Mar 03, 2015 1 tablet as needed Elavil [facility] 0 75 Once a day Dec 09, 2012 1-2 tablet by Oral route 1 time per day Cymbalta [facility] [address]-37 60 mg Jan 03, 2014 take 1 capsule (60 mg) by oral route once daily Viagra [facility] [address]-06 100 MG Orally Once a day Mar 02, 2015 May 31, 2015 1 tablet as needed Metformin HCl [facility] [address]-65 500 MG Orally Twice a day October 04, 2014 1 tablet with meals Depakote [facility] [address]-81 500 mg Jan 03, 2014 take 1 tablet (500 mg) by oral route 3 times per day ProAir HFA [facility] [address]-97 108 (90 Base) MCG/ACT Inhalation every 4 hrs NEEDED ONLY Jan 09, 2015 2 puffs NEEDED Norvasc [facility] [address]-00 10 MG Orally Once a day October 27, 2014 1 tablet Procedures Procedure Coding System Code Date [facility] VISIT ESTABLISHED PATIENT CPT-4 G0467 Mar 02, 2015 Office Visit, Est Pt., Level 4 CPT-4 83860 Mar 02, 2015 No Charge CPT-4 59767 Mar 02, 2015 MICROALBUMIN, SEMIQUANT CPT-4 52337 Mar 02, 2015 Vital Signs Date/Time: Mar 02, 2015 Temperature 96.4 F Weight 273.5 lbs Height 70 in BMI 39.24 Index Blood Pressure Diastolic 92 mmHg Blood Pressure Systolic 140 mmHg Cardiac Monitoring Heart Rate 92 bpm Results Name Result Date Reference Range Unit Abnormality Flag MICROALBUMIN, URINE (IN HOUSE) Summary Purpose eClinicalWorks Submission
--- OUTSIDE RECORDS SUMMARY | 2017-09-18 11:15 | XMS REPORT ---
Author ANIL Ribeiro Organization eClinicalWorks Address Unknown Phone Unavailable Care Team Providers Care Formal Waiter/Waitress Name Role Phone ANIL KHOURY CP Unavailable [...] Instructions Start Date End Date Status Dosage Ventolin HFA [facility] [address]-11 108 (90 Base) MCG/ACT Inhalation every 4 hrs Jan 01, 2016 2 puffs as needed Results No Known Results Summary Purpose eClinicalWorks Submission
--- OUTSIDE RECORDS SUMMARY | 2017-09-18 11:16 | XMS REPORT ---
Author Author YVES BLEVINS 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 Name Role Phone YVES BLEVINS Unavailable PROBLEMS Type Condition ICD9-CM Code END58-BI Code Onset Dates Condition Status SNOMED Code Problem HTN (hypertension) I10 Active 09437703 Problem Restless legs syndrome G25.81 Active 290366523 Problem GERD (gastroesophageal reflux disease) K21.9 Active 691030895 Problem ED (erectile dysfunction) N52.9 Active 292919316 Problem PAD (peripheral artery disease) I73.9 Active 229539369 Problem Ulcer of right foot, unspecified ulcer stage L97.519 Active 52997799 Problem 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 534959864 Problem COPD (chronic obstructive pulmonary disease) J44.9 Active 43273602 Problem DM neuro manif type II E11.49 Active 17218157 Problem Sinusitis, unspecified chronicity, unspecified location J32.9 Active 67303804 ALLERGIES No Information ENCOUNTERS Encounter Location Date Diagnosis [facility] [id number] [place] [address] 40912- 2913 Aug, [facility] [id number] [place] [address] 25154- 4067 Aug, Back pain M54.9 [facility] [id number] [place] [address] 20015- 5611 Jul, [facility] [id number] [place] [address] 07922- 3529 Jul, Back pain M54.9 [facility] [id number] [place] [address] 12644- 7866 Jul, [facility] [address] 01098- 0756 Jul, DM neuro manif type II E11.49 and Ulcer of right foot, unspecified ulcer stage L97.519 [facility] [id number] [place] [address] 02712- 4020 Jun, [facility] [address] 35113- 5878 Jun, [facility] [address] 78083- 8637 May, 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 complication E11.49 ; GERD (gastroesophageal reflux disease) K21.9 and PAD ( peripheral artery disease) I73.9 [place] [address] 09697- 5279 May, Decubital ulcer L89.90 ; Diabetes E11.9 and GERD ( gastroesophageal reflux disease) K21.9 [place] [address] 01139- 1968 May, [facility] [address] 29781- 9236 Apr, [place] [address] 69876- 1368 Mar, [facility] [id number] [place] [address] 59430- 3620 Mar, [facility] [address] 71477- 2607 Feb, [facility] [id number] [place] [address] 51924- 7103 Feb, [facility] [address] 71556- 7479 Jan, [facility] [id number] [place] [address] 99233- 5224 Jan, HTN (hypertension) I10 [place] [address] 20535- 5184 Jan, [facility] [address] [address]- 3374 Dec, Back pain M54.9 [facility] [id number] [place] [address] 27269- 5309 Dec, Back pain M54.9 [facility] [id number] [place] [address] 22210 -4218 Dec, Encounter for immunization Z23 and Puncture wound of right foot, initial encounter S91.331A [facility] [id number] [place] [address] 67404- 0238 Dec, [facility] [id number] [place] [address] 78815- 9523 Nov, [facility] [id number] [place] [address] 89367- 0574 Nov, COPD (chronic obstructive pulmonary disease) J44.9 [facility] [id number] [place] [address] 37437- 6583 Nov, [facility] [id number] [place] [address] 06439- 7350 Oct, [facility] [id number] [place] [address] 06393- 5185 Oct, [facility] [id number] [place] [address] 56817- 2385 September, Onychomycosis B35.1 and DM neuro manif type II E11.49 [facility] [id number] [place] [address] 25164- 9209 September, [facility] [id number] [place] [address] 39755- 7649 Aug, [facility] [id number] [place] [address] 26749- 9421 Jul, Sinusitis, unspecified chronicity, unspecified location J32.9 and Cough R05 [facility] [address] [place] [address] 92862- 9036 13 Jul, 2016 Back pain M54.9 [facility] [id number] [place] [address] 59165- 9532 14 Jun, 2016 Back pain M54.9 [facility] [id number] [place] [address] 10237- 7550 06 Jun, 2016 COPD (chronic obstructive pulmonary disease) J44.9 [facility] [id number] [place] [address] 20586- 9727 May, [facility] [id number] [place] [address] 89001- 4675 May, [facility] [id number] [place] [address] 31091- 1652 May, Back pain M54.9 [facility] [id number] [place] [address] 46155- 9830 16 May, 2016 [facility] [id number] [place] [address] 92033- 3161 May, [facility] [id number] [place] [address] 64869- 9038 May, Diabetes E11.9 [facility] [address] [place] [address] 04807- 2112 May, Diabetes E11.9 ; GERD (gastroesophageal reflux [...] Need for hepatitis C screening test Z11.59 [facility] [address] [place] [address] 68891- 1946 May, HTN (hypertension) I10 [facility] [address] [id number] [place] [address]- 9493 Apr, [facility] [address] [id number] [place] [address]- 6840 Apr, [facility] [address] [id number] [place] [address]- 5298 Apr, [facility] [id number] [place] [address], [place] [address]- 5732 Apr, [facility] [id number] [place] [address], [place] [address]- 3168 Apr, [facility] [address] [facility] [id number] [place] [address], [place] [address]- 2487 Mar, [facility] [id number] [place] [address], [place] [address]- 9283 Mar, [facility] [id number] [place] [address] 03548- 6061 Mar, [facility] [address] [facility] [id number] [place] [address]- 7010 Mar, [facility] [id number] [address]- 8132 Mar, Dental examination Z01.20 [facility] [id number] [address]- 9004 Feb, [facility] [address] [facility] [id number] [address]- 0211 Feb, [facility] [address] [facility] [id number], [place] [address]- 5835 Feb, Back pain M54.9 [facility] [address] [id number] [place] [address]- 9342 Jan, [facility] [address] [facility] [id number] [address]- 5020 Jan, [facility] [address] [address]- 0577 Dec, Diabetes E11.9 ; GERD (gastroesophageal reflux disease) K21.9 ; ED (erectile dysfunction) N52.9 ; HTN (hypertension) I10 ; Insomnia G47.00 ; COPD (chronic obstructive pulmonary disease) J44.9 ; Neuropathy G62.9 and Bipolar depression F31.30 [facility] [id number] [place] [address] 71889- 2484 Dec, 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 complication E11.49 and Onychomycosis B35.1 [facility] [id number] [place] [address] 24008- 1136 Dec, [facility] [id number] [place] [address] 90100- 1379 Dec, [facility] [id number] [place] [address] 06074- 9521 Dec, [facility] [id number] [place] [address] 53387- 2950 Dec, [facility] [id number] [place] [address] 32639- 7057 Nov, [facility] [id number] [address]- 2748 Nov, [facility] [id number] [place] [address] 26003- 2346 Oct, [facility] [id number] [place] [address] 99218- 7741 Oct, [facility] [id number] [place] [address] 14212- 7608 Oct, Back pain M54.9 [facility] [id number] [address]- 1418 Oct, [facility] [id number] [place] [address] 51028- 1785 Oct, [facility] [address] [place] [address] 77914- 5522 Oct, [facility] [id number] [place] [address] 00994- 4567 Oct, HTN (hypertension) I10 [facility] [id number] [place] [address] 31253- 2715 Oct, Back pain M54.9 [facility] [address] 66791- 5551 Oct, Chronic pain syndrome G89.4 [place] [address] 89563- 7886 September, Back pain M54.9 [place] [id number] [place] [address] 71302- 5777 September, HTN (hypertension) I10 [place] [id number] [place] [address] 77067- 9773 Aug, Porokeratosis Q82.8 ; Onychomycosis B35.1 and 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 complication E11.49 [place] [id number] [place] [address] 28223- 1465 Aug, GERD (gastroesophageal reflux disease) K21.9 ; Diabetes E11.9 ; HTN (hypertension) I10 ; Insomnia G47.00 ; Restless legs syndrome G25.81 ; COPD (chronic obstructive pulmonary disease) J44.9 ; Back pain M54.9 and Bipolar 1 disorder F31.9 [facility] [address] [place] [address] 96260- 7893 Aug, [place] [id number] [place] [address] 67715- 5917 Aug, [facility] [id number] [place] [address] 80762- 9923 Aug, [place] [id number] [place] [address] 72946- 8493 Aug, [facility] [address] [address]- 8399 Jul, [facility] [address] [place] [address] 91201- 9169 Jul, [facility] [id number] [place] [address] 28395- 5275 30 Jul, 2015 [facility] [id number] [place] [address] 58942- 2709 Jul, [facility] [address] [place] [address] 52499- 4467 Jul, [facility] [id number] [place] [address] 53059- 5357 Jul, [facility] [id number] [place] [address] 93521- 2548 Jun, Decubital ulcer L89.90 ; Diabetes E11.9 ; Back pain M54.9 ; HTN (hypertension) I10 and COPD (chronic obstructive pulmonary disease) J44.9 [facility] [id number] [place] [address] 09598- 6635 Jun, [facility] [address] [place] [address] 93669- 1992 Jun, [facility] [id number] [place] [address] 14876- 2064 Jun, [facility] [address] [address]- 3805 Jun, [facility] [id number] [place] [address] 62399- 9158 Jun, Diabetes E11.9 ; Insomnia G47.00 ; Decubital ulcer L89.90 ; GERD (gastroesophageal reflux disease) K21.9 ; Back pain M54.9 ; Superficial fungus infection of skin B36.9 and HTN (hypertension) I10 [place] [address] [facility] [id number] [place] [id number] Jun, Dental examination Z01.20 [facility] [address] [address]- 6411 May, [facility] [address] [address]- 7564 May, [facility] [address] [address]- 6666 May, [facility] [address] [address]- 8149 May, Diabetes E11.9 ; HTN (hypertension) I10 and Decubital ulcer L89.90 [place] [address] [address]- 9483 May, HTN (hypertension) I10 ; Decubital ulcer L89.90 and Diabetes E11.9 [place] [address] [address]- 6724 30 Apr, 2015 Diabetes E11.9 ; GERD (gastroesophageal reflux disease) K21.9 ; Back pain M54.9 ; HTN (hypertension) I10 ; Restless legs syndrome G25.81 and Decubital ulcer L89.90 [place] [address] [address]- 9726 Apr, [place] [address] [address]- 4825 Apr, Diabetes E11.9 ; HTN (hypertension) I10 ; Restless legs syndrome G25.81 ; GERD (gastroesophageal reflux disease) K21.9 and COPD ( chronic obstructive pulmonary disease) J44.9 [place] [address] [address]- 3005 Mar, [place] [address] [address]- 6928 Mar, [facility] [address] [place] [address] 21568- 3266 Mar, Diabetes E11.9 ; Abscess L02.91 and Restless legs syndrome G25.81 [place] [address] 17003- 1512 Mar, [place] [id number] [place] [address] 18332- 8960 Feb, GERD (gastroesophageal reflux disease) K21.9 ; Back pain M54.9 ; ED (erectile dysfunction) N52.9 ; Diabetes E11.9 ; HTN (hypertension) I10 and Insomnia G47.00 [place] [address] 64991- 2348 Feb, [place] [address] 56259- 9888 Feb, [place] [address] 67847- 9906 Jan, [place] [id number] [place] [address] 34681- 9303 Jan, Diabetes 250.00 ; Nondependent cannabis abuse, continuous 305.21 ; Cough 786.2 ; Schizoaffective disorder, unspecified 295.70 ; Sciatica 724.3 ; Other, mixed, or unspecified nondependent drug abuse, unspecified 305.90 ; Chronic pain 338.29 ; GERD (gastroesophageal reflux disease) 530.81 and HTN (hypertension) 401.9 [place] [id number] [place] [address] 97752- 3501 Jan, [place] [id number] [place] [address] 60484- 3978 Jan, [place] [id number] [place] [address] 01217- 6527 Jan, Chronic pain associated with significant psychosocial dysfunction 338.4 ; Diabetes mellitus without mention of complication, type I [ juvenile type], uncontrolled 250.03 ; Benign essential hypertension 401.1 ; Schizoaffective disorder, unspecified 295.70 ; Wheezing 786.07 ; Ear ache 388.70 ; Cough 786.2 ; Sciatica 724.3 and Foot pain, bilateral 729.5 [facility] [address] 07176- 8826 Dec, [facility] [id number] [place] [address] 04137- 2058 Dec, [facility] [address] 49469- 4515 Dec, [facility] [address] 40091- 3870 Dec, [facility] [address] 89644- 1772 Dec, [facility] [address] 41287- 5806 Nov, Elevated liver enzymes 790.5 [facility] [address] 62287- 7090 Nov, [facility] [id number] [place] [address] 36102- 2532 Nov, [facility] [id number] [place] [address] 13820- 9311 Nov, [facility] [id number] [place] [address] 58492- 0706 Nov, Benign essential hypertension 401.1 ; Diabetes mellitus without mention of complication, type I [juvenile type], uncontrolled 250.03 and Nondependent cannabis abuse, continuous 305.21 [facility] [id number] [place] [address] 48224- 4219 Oct, Cellulitis 682.9 and Benign essential hypertension 401.1 [facility] [id number] [place] [address] 36806- 3635 Oct, [facility] [id number] [place] [address] 65698- 0172 September, [facility] [place] [facility] [address] [id number] [place] [address]- 9409 September, [facility] [place] [facility] [address] [id number] [place] [address]- 3988 Aug, [facility] [place] [facility] [address] [id number] [place] [address]- 0959 Aug, [facility] [place] [facility] [address] [id number] [place] [address]- 8568 Aug, [facility] [place] [facility] [address] [id number] [place] [address]- 7917 Aug, [facility] [place] [facility] [address] [id number] [place] [address]- 4997 Jul, [facility] [place] [facility] [address] [id number] [place] [address]- 5252 Jul, [facility] [place] [facility] [address] [id number] [place] [address]- 8076 Jul, [facility] [place] [facility] [address] [id number] [place] [address]- 4587 Jul, [facility] [place] [facility] [address] [id number] [place] [address]- 4202 Jul, [facility] [place] [facility] [address] [id number] [place] [address]- 8322 Jul, [facility] [place] [facility] [address] [id number] [address]- 0733 Jun, [facility] [place] [facility] [address] [id number] [place] [address]- 9107 Jun, [facility] [place] [facility] [address] [id number] [place] [address]- 2686 Jun, [facility] [place] [facility] [address] [id number] [place] [address]- 5744 Jun, [facility] [place] [facility] [address] [id number] [place] [address]- 8210 Jun, [facility] [address] [id number] [place] [address]- 3274 May, [facility] [place] [facility] [address] [id number] [place] [address]- 5300 May, [facility] [place] [facility] [address] [id number] [place] [address]- 9534 May, [facility] [place] [facility] [address] [id number] [place] [address]- 3287 May, [facility] [place] [facility] [address] [id number] [place] [address]- 1710 May, [facility] [place] [facility] [address] [id number] [place] [address]- 7709 May, [facility] [place] [facility] [address] [id number] [place] [address] May, [facility] [place] [facility] [address] [id number] [place] [address] May, [facility] [place] [facility] [address] [id number] [place] [address] Apr, [facility] [place] [facility] [address] [id number] [place] [address] Apr, [facility] [place] [facility] [address] [id number] [place] [address] Apr, [facility] [place] [facility] [address] [id number] [place] [address] Apr, [facility] [place] [facility] [address] [id number] [place] [address] Mar, [facility] [place] [facility] [address] [id number] [place] [address] Mar, [facility] [place] [facility] [address] [id number] [place] [address] Mar, [facility] [place] [facility] [address] [id number] [place] [address] Mar, [facility] [place] [facility] [address] [id number] [place] [address] Feb, [facility] [place] [facility] [address] [id number] [place] [address] Feb, [facility] [place] [facility] [address] [id number] [place] [address] Feb, [facility] [place] [facility] [address] [id number] [place] [address] Feb, [facility] [place] [facility] [address] [id number] [place] [address] Feb, [facility] [place] [facility] [address] [id number] [place] [address]265 Feb, [facility] [place] [facility] [address] [id number] [place] [address] Jan, [facility] [place] [facility] [address] [id number] [place] [address] Jan, [facility] [place] [facility] [address] [id number] [place] [address] Jan, [facility] [place] [facility] [address] [id number] [place] [address] Jan, [facility] [place] [facility] [address] [id number] [place] [address] Dec, [facility] [place] [facility] [address] [id number] [place] [address] Dec, [facility] [place] [facility] [address] [id number] [place] [address] Dec, [facility] [place] [facility] [address] [id number] [place] [address]- [address]86 Dec, [facility] [place] [facility] [address] [id number] [place] [address] Dec, [facility] [place] [facility] [address] [id number] [place] [address] Dec, [facility] [place] [facility] [address] [id number] [place] [address] Oct, [facility] [place] [facility] [address] [id number] [place] [address] Oct, [facility] [place] [facility] [address] [id number] [place] [address] September, [facility] [place] [facility] [address] [id number] [place] [address] September, [facility] [place] [facility] [address] [id number] [place] [address] September, [facility] [place] [facility] [address] [id number] [place] [address]175 September, [facility] [place] [facility] [address] [id number] [place] [address] September, [facility] [place] [facility] [address] [id number] [place] [address] September, [facility] [place] [facility] [address] [id number] [place] [address]- [address]48 Aug, [facility] [place] [facility] [address] [id number] [place] [address] Aug, [facility] [place] [facility] [address] [id number] [place] [address] Aug, [facility] [place] [facility] [address] [id number] [place] [address] Aug, [facility] [place] [facility] [address] [id number] [place] [address] Jul, [facility] [place] [facility] [address] [id number] [place] [address] Jul, [facility] [place] [facility] [address] [id number] [place] [address] Jun, [facility] [address] [id number] [place] [address] Jun, [facility] [address] [id number] [place] [address] May, [facility] [address] [id number] [place] [address] May, [facility] [address] [id number] [place] [address] Jan, [facility] [address] [id number] [place] [address] Dec, [facility] [address] [id number] [place] [address] Jun, [facility] [address] [id number] [place] [address] May, [facility] [address] [id number] [place] [address] Nov, [facility] [address] [id number] [place] [address] September, [facility] [address] [id number] [place] [address] Aug, [facility] [address] [id number] [place] [address] Aug, [facility] [address] [id number] [place] [address] Aug, [facility] [place] [facility] [address] [id number] [place] [address] Aug, [facility] [place] [facility] [address] [id number] [place] [address] Nov, [facility] [place] [facility] [address] [id number] [place] [address] Oct, [facility] [id number] [address] Jul, [facility] [id number] [address] Feb, [facility] [id number] [address] Feb, [facility] [id number] [address] Apr, [facility] [id number] [address] Apr, [facility] [id number] [address] Feb, [facility] [id number] [address] Feb, [facility] [id number] [address] Jul, IMMUNIZATIONS No Known Immunizations SOCIAL HISTORY Never Assessed REASON FOR VISIT Resend PLAN OF CARE VITAL SIGNS MEDICATIONS Medication Instructions Dosage Frequency Start Date End Date Duration Status Hydrocodone-Ibuprofen 7.5-200 MG Orally 3 times a day 1 tablet as needed Dec, 28 days Active RESULTS No Results PROCEDURES No Known procedures INSTRUCTIONS MEDICATIONS ADMINISTERED No Known Medications MEDICAL (GENERAL) HISTORY Type Description Date Medical History hypertension Medical History Type 2 Diabetes Medical History Hep C Medical History Depression Medical History Anxiety Surgical History Right little toe amputation Hospitalization History Psych hospitalizations(numerous) Hospitalization History for surgeries
--- OUTSIDE RECORDS SUMMARY | 2017-09-18 11:16 | XMS REPORT ---
Author Author ANIL Sanchez Organization [facility] Address [address] [place] [address] Care Team Providers Care Supervisor [employer] Name Role Phone Daniel ANIL Unavailable PROBLEMS Type Condition ICD9-CM Code OJH68-UN Code Onset Dates Condition Status SNOMED Code Problem HTN (hypertension) I10 Active 09158474 Problem Restless legs syndrome G25.81 Active 429307305 Problem GERD (gastroesophageal reflux disease) K21.9 Active 987139910 Problem ED (erectile dysfunction) N52.9 Active 369373865 Problem PAD (peripheral artery disease) I73.9 Active 257035861 Problem Ulcer of right foot, unspecified ulcer stage L97.519 Active 96117389 Problem 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 190265116 Problem COPD (chronic obstructive pulmonary disease) J44.9 Active 58671688 Problem DM neuro manif type II E11.49 Active 22772450 Problem Sinusitis, unspecified chronicity, unspecified location J32.9 Active 97494528 ALLERGIES No Information ENCOUNTERS Encounter Location Date Diagnosis [facility] [id number] [place] [address] 38759- 0376 Nov, [facility] [id number] [place] [address] 04008- 4814 Aug, [facility] [id number] [place] [address] 51745- 2143 24 Aug, 2017 Acute cystitis with hematuria N30.01 ; Ulcer of right foot, unspecified ulcer stage L97.519 ; HTN (hypertension) I10 ; COPD (chronic obstructive pulmonary disease) J44.9 and DM neuro manif type II E11.49 [facility] [id number] [place] [address] 79451- 0400 Aug, Back pain M54.9 [facility] [id number] [place] [address] 65313- 7747 29 Jul, 2017 [facility] [address] 65095- 5556 Jul, Back pain M54.9 [facility] [id number] [place] [address] 77352- 0534 Jul, [facility] [address] 56852- 6297 Jul, DM neuro manif type II E11.49 and Ulcer of right foot, unspecified ulcer stage L97.519 [place] [facility] [address] 99799- 3535 Jun, [place] [facility] [address] 47291- 9820 Jun, [place] [address] 49722- 3918 May, 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 complication E11.49 ; GERD (gastroesophageal reflux disease) K21.9 and PAD ( peripheral artery disease) I73.9 [facility] [id number] [place] [address] 60126- 2546 May, Decubital ulcer L89.90 ; Diabetes E11.9 and GERD ( gastroesophageal reflux disease) K21.9 [facility] [id number] [place] [address] 71915- 9232 May, [facility] [id number] [place] [address] 81827- 4197 Apr, [place] [address] 05363- 3384 Mar, [facility] [id number] [place] [address] 61017- 3816 Mar, [facility] [id number] [place] [address] 24541- 5425 Feb, [facility] [address] [address]- 4935 Feb, [facility] [id number] [place] [address] 75815- 4906 Jan, [facility] [id number] [place] [address] 89093- 2723 Jan, HTN (hypertension) I10 [facility] [id number] [place] [address] 21344- 6162 Jan, [facility] [id number] [place] [address] 10074- 6245 Dec, Back pain M54.9 [facility] [id number] [place] [address] 59927- 7550 Dec, Back pain M54.9 [facility] [id number] [place] [address] 45130 -9033 Dec, Encounter for immunization Z23 and Puncture wound of right foot, initial encounter S91.331A [facility] [id number] [place] [address] 53372- 7936 Dec, [facility] [id number] [place] [address] 50842- 7617 Nov, [facility] [id number] [place] [address] 86563- 6648 Nov, COPD (chronic obstructive pulmonary disease) J44.9 [facility] [id number] [place] [address] 58271- 2667 Nov, [facility] [id number] [place] [address] 83557- 7925 Oct, [facility] [id number] [place] [address] 52100- 2298 Oct, [facility] [id number] [place] [address] 20713- 5086 September, Onychomycosis B35.1 and DM neuro manif type II E11.49 [facility] [address] [address]- 1844 September, [facility] [id number] [place] [address] 05364- 5242 Aug, [facility] [id number] [place] [address] 04143- 2068 Jul, Sinusitis, unspecified chronicity, unspecified location J32.9 and Cough R05 [facility] [id number] [place] [address] 21723- 8342 Jul, Back pain M54.9 [facility] [id number] [place] [address] 75248- 5151 14 Jun, 2016 Back pain M54.9 [facility] [id number] [place] [address] 15943- 6755 06 Jun, 2016 COPD (chronic obstructive pulmonary disease) J44.9 [facility] [id number] [place] [address] 19721- 3165 May, [facility] [id number] [place] [address] 32934- 7511 May, [facility] [id number] [place] [address] 88211- 7664 May, Back pain M54.9 [facility] [id number] [place] [address] 28130- 3498 16 May, 2016 [facility] [id number] [place] [address] 58922- 7760 May, [facility] [id number] [place] [address] 62516- 9850 May, Diabetes E11.9 [facility] [id number] [place] [address] 93199- 3307 May, Diabetes E11.9 ; GERD (gastroesophageal reflux [...] Need for hepatitis C screening test Z11.59 [facility] [id number] [place] [address] 06790- 1594 04 May, 2016 HTN (hypertension) I10 [facility] [id number] [place] [address] 88064- 9003 29 Apr, 2016 [facility] [id number] [place] [address] 74418- 2234 Apr, [facility] [id number] [place] [address] 45962- 5124 Apr, [facility] [id number] [place] [address] 41968- 0036 Apr, [facility] [id number] [place] [address] 71098- 5060 Apr, [facility] [id number] [place] [address] 61087- 6197 Mar, [facility] [id number] [address]- 8074 Mar, [facility] [id number] [place] [address] 54672- 2317 Mar, [facility] [id number] [place] [address] 15815- 0154 Mar, [facility] [id number] [place] [address] 64262- 9103 Mar, Dental examination Z01.20 [facility] [id number] [address]- 9135 24 Feb, 2016 [facility] [address] [place] [address]- 2723 Feb, [facility] [id number] [place] [address] 62949- 0043 Feb, Back pain M54.9 [facility] [id number] [place] [address] 89224- 2824 Jan, [facility] [id number] [place] [address] 98854- 6914 Jan, [facility] [id number] [place] [address] 50605- 3223 Dec, Diabetes E11.9 ; GERD (gastroesophageal reflux disease) K21.9 ; ED (erectile dysfunction) N52.9 ; HTN (hypertension) I10 ; Insomnia G47.00 ; COPD (chronic obstructive pulmonary disease) J44.9 ; Neuropathy G62.9 and Bipolar depression F31.30 [facility] [id number] [place] [address] 24691- 6891 Dec, 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 complication E11.49 and Onychomycosis B35.1 [facility] [id number] [place] [address] 65882- 3012 Dec, [facility] [id number] [place] [address] 37382- 8321 Dec, [facility] [id number] [place] [address] 11284- 4969 Dec, [facility] [id number] [place] [address] 96313- 8513 Dec, [facility] [id number] [place] [address] 87794- 6828 Nov, [facility] [id number] [place] [address] 815552- 2112 Nov, [facility] [id number] [place] [address] 32597- 1205 Oct, [facility] [address], [place] [address]- 2053 08 Oct, 2015 [facility] [id number] [place] [address] 04055- 8773 07 Oct, 2015 Back pain M54.9 [facility] [id number] [place] [address] 15040- 8235 Oct, [facility] [id number] [place] [address] 66775- 9645 Oct, [facility] [id number] [place] [address] 47809- 8049 Oct, [facility] [id number] [place] [address] 58576- 0211 Oct, HTN (hypertension) I10 [facility] [id number] [place] [address] 90851- 8078 Oct, Back pain M54.9 [facility] [id number] [place] [address] 19500- 8841 Oct, Chronic pain syndrome G89.4 [facility] [id number] [place] [address] 39286- 9837 September, Back pain M54.9 [facility] [id number] [place] [address] 82144- 3134 September, HTN (hypertension) I10 [facility] [id number] [place] [address] 77115- 9261 Aug, Porokeratosis Q82.8 ; Onychomycosis B35.1 and 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 complication E11.49 [facility] [id number] [place] [address] 22070- 4229 Aug, GERD (gastroesophageal reflux disease) K21.9 ; Diabetes E11.9 ; HTN (hypertension) I10 ; Insomnia G47.00 ; Restless legs syndrome G25.81 ; COPD (chronic obstructive pulmonary disease) J44.9 ; Back pain M54.9 and Bipolar 1 disorder F31.9 [facility] [address] [address]- 2444 Aug, [facility] [address], [place] [address]- 6691 Aug, [facility] [address], [place] [address]- 8772 Aug, [facility] [address], [place] [address]- 9500 Aug, [facility] [address], [place] [address]- 2901 Jul, [facility] [id number] [place] [address] 99685- 6352 Jul, [facility] [address], [place] [address]- 8360 30 Jul, 2015 [facility] [address], [place] [address]- 8197 Jul, [facility] [address], [place] [address]- 4944 Jul, [facility] [address], [place] [address]- 8041 Jul, [facility] [address], [place] [address]- 5704 17 Jun, 2015 Decubital ulcer L89.90 ; Diabetes E11.9 ; Back pain M54.9 ; HTN (hypertension) I10 and COPD (chronic obstructive pulmonary disease) J44.9 [facility] [address], [place] [address]- 0519 Jun, [facility] [address], [place] [address]- 6255 Jun, [facility] [address], [place] [address]- 2398 Jun, [place] [id number] [place] [address] 12788- 1651 Jun, [place] [address] 72438- 8581 Jun, Diabetes E11.9 ; Insomnia G47.00 ; Decubital ulcer L89.90 ; GERD (gastroesophageal reflux disease) K21.9 ; Back pain M54.9 ; Superficial fungus infection of skin B36.9 and HTN (hypertension) I10 [address] [id number] [id number] Jun, Dental examination Z01.20 [facility] [place] [id number] [place] [address] 04378- 5695 May, [place] [id number] [place] [address] 65551- 5477 May, [place] [place] [id number] [place] [address] 45889- 4698 May, [place] [place] [id number] [place] [address] 80481- 9557 May, Diabetes E11.9 ; HTN (hypertension) I10 and Decubital ulcer L89.90 [place] [address] [place] [address] 20918- 6035 May, HTN (hypertension) I10 ; Decubital ulcer L89.90 and Diabetes E11.9 [facility] [id number] [place] [address] 24442- 3572 Apr, Diabetes E11.9 ; GERD (gastroesophageal reflux disease) K21.9 ; Back pain M54.9 ; HTN (hypertension) I10 ; Restless legs syndrome G25.81 and Decubital ulcer L89.90 [facility] [id number] [place] [address] 06092- 6004 17 Apr, 2015 [place] [id number] [place] [address] 04635- 0458 Apr, Diabetes E11.9 ; HTN (hypertension) I10 ; Restless legs syndrome G25.81 ; GERD (gastroesophageal reflux disease) K21.9 and COPD ( chronic obstructive pulmonary disease) J44.9 [facility] [id number] [place] [address] 54676- 8083 Mar, [place] [id number] [place] [address] 87135- 5019 Mar, [place] [address] 31247- 2402 Mar, Diabetes E11.9 ; Abscess L02.91 and Restless legs syndrome G25.81 [place] [address] 55469- 2887 Mar, [place] [address] 19618- 4672 Feb, GERD (gastroesophageal reflux disease) K21.9 ; Back pain M54.9 ; ED (erectile dysfunction) N52.9 ; Diabetes E11.9 ; HTN (hypertension) I10 and Insomnia G47.00 [place] [address] 85315- 2064 Feb, [place] [id number] [place] [address] 30682- 5108 Feb, [place] [id number] [place] [address] 77021- 7628 Jan, [place] [address] 32600- 9844 Jan, Diabetes 250.00 ; Nondependent cannabis abuse, continuous 305.21 ; Cough 786.2 ; Schizoaffective disorder, unspecified 295.70 ; Sciatica 724.3 ; Other, mixed, or unspecified nondependent drug abuse, unspecified 305.90 ; Chronic pain 338.29 ; GERD (gastroesophageal reflux disease) 530.81 and HTN (hypertension) 401.9 [place] [address] 47149- 3926 Jan, [facility] [id number] [place] [address] 41617- 8681 Jan, [facility] [id number] [place] [address] 05138- 5476 Jan, Diabetes mellitus without mention of complication, type I [ juvenile type], uncontrolled 250.03 ; Schizoaffective disorder, unspecified 295.70 ; Benign essential hypertension 401.1 ; Chronic pain associated with significant psychosocial dysfunction 338.4 ; Wheezing 786.07 ; Ear ache 388.70 ; Cough 786.2 ; Sciatica 724.3 and Foot pain, bilateral 729.5 [facility] [id number] [place] [address] 39055- 8732 Dec, [facility] [id number] [place] [address] 69942- 1153 Dec, [facility] [id number] [place] [address] 09735- 2079 Dec, [facility] [id number] [place] [address] 12590- 8755 Dec, [facility] [id number] [place] [address] 84434- 8684 Dec, [facility] [id number] [place] [address] 09452- 7473 Nov, Elevated liver enzymes 790.5 [facility] [id number] [place] [address] 09453- 7458 Nov, [facility] [address] [place] [address] 19620- 3008 Nov, [facility] [id number] [place] [address] 30361- 6548 Nov, [facility] [id number] [place] [address] 120115- 6623 Nov, Diabetes mellitus without mention of complication, type I [ juvenile type], uncontrolled 250.03 ; Benign essential hypertension 401.1 and Nondependent cannabis abuse, continuous 305.21 [facility] [id number] [place] [address] 24570- 0694 Oct, Cellulitis 682.9 and Benign essential hypertension 401.1 [facility] [id number] [place] [address] 33431- 6878 08 Oct, 2014 [facility] [id number] [place] [address] 37821- 1990 September, [facility] [id number] [place] [address] 80353- 5800 September, [facility] [id number] [place] [address] 65941- 4557 Aug, [facility] [id number] [place] [address] 33476- 1794 Aug, [facility] [id number] [place] [address] 07119- 9161 Aug, [facility] [id number] [place] [address] 64328- 1327 Aug, [facility] [id number] [place] [address] 89524- 3701 Jul, [facility] [address], [place] [address]- 3090 Jul, [facility] [id number] [place] [address] 70938- 5416 Jul, [facility] [address], [place] [address]- 1074 18 Jul, 2014 [facility] [id number] [place] [address] 45952- 2640 Jul, [facility] [address], [place] [address]- 3660 Jul, [facility] [id number] [place] [address] 71639- 3336 Jun, [facility] [address] [id number] [place] [address]- 1440 Jun, [facility] [address] [id number] [place] [address]- 1721 Jun, [facility] [place] [facility] [address] [id number] [place] [address]- 8230 Jun, [facility] [place] [facility] [address] [id number] [place] [address]- 5852 Jun, [facility] [address] [id number] [place] [address]- 8659 May, [facility] [address] [id number] [place] [address]- 7696 May, [facility] [address] [id number] [place] [address]- 5229 May, [facility] [address] [id number] [place] [address]- 4188 May, [facility] [address] [id number] [place] [address] May, [facility] [address] [facility] [id number] [place] [address] May, [facility] [address] [id number], [place] [address] May, [facility] [place] [facility] [address] [id number], [place] [address] May, [facility] [place] [facility] [address] [id number] [place] [address] Apr, [facility] [place] [facility] [address] [id number] [place] [address] Apr, [facility] [place] [facility] [address] [id number] [place] [address] Apr, [facility] [place] [facility] [address] [id number] [place] [address] Apr, [facility] [place] [facility] [address] [id number] [place] [address] Mar, [facility] [place] [facility] [address] [id number] [place] [address] Mar, [facility] [place] [facility] [address] [id number] [place] [address] Mar, [facility] [place] [facility] [address] [id number] [place] [address] Mar, [facility] [place] [facility] [address] [id number] [place] [address] Feb, [facility] [place] [facility] [address] [id number] [place] [address] Feb, [facility] [place] [facility] [address] [id number] [place] [address] Feb, [facility] [place] [facility] [address] [id number] [place] [address] Feb, [facility] [place] [facility] [address] [id number] [place] [address] Feb, [facility] [place] [facility] [address] [id number] [place] [address] Feb, [facility] [place] [facility] [address] [id number] [place] [address] Jan, [facility] [place] [facility] [address] [id number] [place] [address] Jan, [facility] [place] [facility] [address] [id number] [place] [address] Jan, [facility] [place] [facility] [address] [id number] [place] [address] Jan, [facility] [place] [facility] [address] [id number] [place] [address] Dec, [facility] [place] [facility] [address] [id number] [place] [address] Dec, [facility] [place] [facility] [address] [id number] [place] [address] Dec, [facility] [place] [facility] [address] [id number] [place] [address] Dec, [facility] [place] [facility] [address] [id number] [place] [address] Dec, [facility] [place] [facility] [address] [id number] [place] [address] Dec, [facility] [place] [facility] [address] [id number] [place] [address] Oct, [facility] [place] [facility] [address] [id number] [place] [address] Oct, [facility] [place] [facility] [address] [id number] [place] [address] September, [facility] [place] [facility] [address] [id number] [place] [address] September, [facility] [place] [facility] [address] [id number] [place] [address] September, [facility] [place] [facility] [address] [id number] [place] [address] September, [facility] [place] [facility] [address] [id number] [place] [address] September, [facility] [place] [facility] [address] [id number] [place] [address] September, [facility] [place] [facility] [address] [id number] [place] [address] Aug, [facility] [place] [facility] [address] [id number] [place] [address] Aug, [facility] [place] [facility] [address] [id number] [place] [address] Aug, [facility] [address] [id number] [place] [address] Aug, [facility] [place] [facility] [address] [id number] [place] [address] Jul, [facility] [address] [id number] [place] [address] Jul, [facility] [place] [facility] [address] [id number] [place] [address] Jun, [facility] [place] [facility] [address] [id number] [place] [address] Jun, [facility] [place] [facility] [address] [id number] [place] [address] May, [facility] [address] [id number] [place] [address] May, [facility] [address] [id number] [place] [address] Jan, [facility] [address] [id number] [place] [address] Dec, [facility] [address] [id number] [place] [address] Jun, [facility] [place] [facility] [address] [id number] [place] [address] May, [facility] [place] [facility] [address] [id number] [place] [address] Nov, [facility] [place] [facility] [address] [id number] [place] [address] September, [facility] [place] [facility] [address] [id number] [place] [address] Aug, [facility] [place] [facility] [address] [id number] [place] [address] Aug, [facility] [address] [facility] [id number], [place] [address] Aug, [facility] [address] [facility] [id number], [place] [address] Aug, [facility] [address] [facility] [id number], [place] [address] Nov, [facility] [address] [facility] [id number], [place] [address] Oct, [facility] [address] [facility] [id number], [place] [address] Jul, [facility] [address] [facility] [id number], [place] [address] Feb, [facility] [id number], [place] [address] Feb, [facility] [id number], [place] [address] Apr, [facility] [address] [id number], [place] [address] Apr, [facility] [address] [id number], [place] [address] Feb, [facility] [address] [id number], [place] [address] Feb, [facility] [address] [id number], [place] [address] Jul, IMMUNIZATIONS No Known Immunizations SOCIAL HISTORY Never Assessed REASON FOR VISIT Refill request PLAN OF CARE VITAL SIGNS MEDICATIONS Medication Instructions Dosage Frequency Start Date End Date Duration Status Lisinopril-Hydrochlorothiazide 20-25 MG Orally Once a day 1 tablet 24h 90 Active RESULTS No Results PROCEDURES No [...]
--- OUTSIDE RECORDS SUMMARY | 2017-09-18 11:17 | XMS REPORT ---
Author ANIL Ribeiro Organization [employer] Address Unknown Phone Unavailable Care Team Providers Care Industrial Service Technician Name Role Phone ANIL KHOURY CP Unavailable [...] Date End Date Status Dosage Ventolin HFA [facility] [id number] 108 (90 Base) MCG/ACT Inhalation every 4 hrs Jan 01, 2016 2 puffs as needed Results No Known Results Summary Purpose [employer] Submission
--- OUTSIDE RECORDS SUMMARY | 2017-09-18 11:17 | XMS REPORT ---
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 Packer And Picker Name Role Phone IRAIDA ANIL Unavailable PROBLEMS Type Condition ICD9-CM Code TTI13-TL Code Onset Dates Condition Status SNOMED Code Problem GERD (gastroesophageal reflux disease) K21.9 Active 911725745 Problem Abscess L02.91 Active 781377924 Problem Restless legs syndrome G25.81 Active 478399246 Problem DM neuro manif type II E11.49 Active 90071577 Problem Sinusitis, unspecified chronicity, unspecified location J32.9 Active 87660313 Problem Decubital ulcer L89.90 Active 136949178 Problem COPD (chronic obstructive pulmonary disease) J44.9 Active 74830443 Problem Cough R05 Active 56375347 Problem 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 264897298 Problem HTN (hypertension) I10 Active 33386331 Problem Diabetes E11.9 Active 65109029 Problem ED (erectile dysfunction) N52.9 Active 836470787 Problem Insomnia G47.00 Active 863361986 Problem Back pain M54.9 Active 717846123 ALLERGIES Unknown Allergies SOCIAL HISTORY No smoking Hx information available PLAN OF CARE VITAL SIGNS MEDICATIONS Medication Instructions Dosage Frequency Start Date End Date Duration Status Ventolin HFA 108 (90 Base) MCG/ACT Inhalation every 4 hrs 2 puffs as needed 4h 30 Active RESULTS No Results PROCEDURES No Known procedures IMMUNIZATIONS No Known Immunizations
--- OUTSIDE RECORDS SUMMARY | 2017-09-18 11:17 | XMS REPORT ---
Author ANIL Ribeiro Organization [employer] Address Unknown Phone Unavailable Care Team Providers Care Butcher Apprentice Name Role Phone ANIL KHOURY CP Unavailable [...] Problem Restless legs syndrome G25.81 Active Medications No Known Medications Results No Known Results Summary Purpose [employer] Submission
--- OUTSIDE RECORDS SUMMARY | 2017-09-18 11:17 | XMS REPORT ---
Author Author ANIL KHOURY Organization [facility] Address [address] [place] [address] Care Team Providers Care Trial Paralegal Name Role Phone BOBBI KHOURYNETTE Unavailable PROBLEMS Type Condition ICD9-CM Code CZK61-ZY Code Onset Dates Condition Status SNOMED Code Problem ED (erectile dysfunction) N52.9 Active 030230546 Problem Restless legs syndrome G25.81 Active 739633397 Problem Abscess L02.91 Active 247091014 Problem DM neuro manif type II E11.49 Active 55907609 Problem Sinusitis, unspecified chronicity, unspecified location J32.9 Active 09632039 Problem Decubital ulcer L89.90 Active 145438787 Problem COPD (chronic obstructive pulmonary disease) J44.9 Active 56504782 Problem Cough R05 Active 32673304 Problem 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 396298606 Problem GERD (gastroesophageal reflux disease) K21.9 Active 622002868 Problem Diabetes E11.9 Active 48442316 Problem Back pain M54.9 Active 509161801 Problem HTN (hypertension) I10 Active 22979601 Problem Insomnia G47.00 Active 681322263 ALLERGIES Substance Reaction Event Type Date Status Latex Unknown Drug Allergy May, Active Thorazine Unknown Drug Allergy May, Active Haldol Unknown Drug Allergy May, Active SOCIAL HISTORY No smoking Hx information available PLAN OF CARE Activity Details Follow Up 3 Months, prn Reason: VITAL SIGNS Height 70 in 2016-05-21 Weight 273.1 lbs 2016-05-21 Temperature 98.3 degrees Fahrenheit 2016-05-21 Heart Rate 136 bpm 2016-05-21 Respiratory Rate 20 2016-05-21 BMI 39.18 kg/m2 2016-05-21 Blood pressure systolic 134 mmHg 2016-05-21 Blood pressure diastolic 88 mmHg 2016-05-21 MEDICATIONS Medication Instructions Dosage Frequency Start Date End Date Duration Status Metformin HCl 1000 MG Orally Twice a day 1 tablet with meals 12h 15 Apr, 2015 Active Norvasc 10 mg Orally Once a day 1 tablet 24h 06 May, 2015 Active Vistaril 50 mg take 1 capsule (50 mg) by oral route 4 times per day Dec, Active Actos 45 MG Orally Once a day 1 tablet 24h Apr, Active Ventolin HFA 108 (90 Base) MCG/ACT Inhalation every 4 hrs 2 puffs as needed 4h Active Lisinopril-Hydrochlorothiazide 20-25 MG Orally Once a day 1 tablet 24h Apr, Active Metoprolol Succinate ER 50 mg Orally Once a day 1 tablet 24h May, Active RESULTS Name Result Date Reference Range A1C (IN HOUSE) 2016-05-21 A1C IN HOUSE 5.5 4.3 - 5.6 % Previous A1c 5.3 Lot [id number] Exp date 02/2018 [employer] 2016-05-21 CBC 2016-05-21 WBC 6.4 3.4-10.8 RBC 4.13 4.14-5.80 Hemoglobin 14.3 12.6-17.7 Hematocrit 39.3 37.5-51.0 MCV 95 79-97 MCH 34.6 26.6-33.0 MCHC 36.4 31.5-35.7 RDW 12.9 12.3-15.4 Platelets 216 150-379 Neutrophils 66 Lymphs 19 Monocytes 13 Eos 1 Basos 1 Neutrophils (Absolute) 4.3 1.4-7.0 Lymphs (Absolute) 1.2 0.7-3.1 Monocytes(Absolute) 0.8 0.1-0.9 Eos (Absolute) 0.0 0.0-0.4 Baso (Absolute) 0.0 0.0-0.2 Immature Granulocytes 0 Immature Grans (Abs) 0.0 0.0-0.1 LIPID PANEL 2016-05-21 Cholesterol, Total 156 100-199 Triglycerides 51 0-149 HDL Cholesterol 74 >39 VLDL Cholesterol John 10 5-40 LDL Cholesterol Calc 72 0-99 CMP 2016-05-21 Glucose, Serum 155 65-99 BUN 6 6-24 Creatinine, Serum 0.60 0.76-1.27 eGFR If NonAfricn Am 124 >59 eGFR If Africn Am 143 >59 BUN/Creatinine Ratio 10 9-20 Sodium, Serum 131 134-144 Potassium, Serum 3.8 3.5-5.2 Chloride, Serum 90 96-106 Carbon Dioxide, Total 18 18-29 Calcium, Serum 9.4 8.7-10.2 Protein, Total, Serum 7.3 6.0-8.5 Albumin, Serum 4.8 3.5-5.5 Globulin, Total 2.5 1.5-4.5 A/G Ratio 1.9 1.1-2.5 Bilirubin, Total 0.4 0.0-1.2 Alkaline Phosphatase, S 63 39-117 AST (SGOT) 26 0-40 ALT (SGPT) 26 0-44 HEPATITIS PROFILE 2016-05-21 Hep A Ab, IgM Negative Negative HBsAg Screen Negative Negative Hep B Core Ab, IgM Negative Negative Hep C Virus Ab >11.0 0.0-0.9 PROCEDURES Procedure Date Ordered Related Diagnosis Body Site GLYCATED HEMOGLOBIN TEST May 21, 2016 [facility] VISIT ESTABLISHED PATIENT May 21, 2016 VENIPUNCT, ROUTINE* May 21, 2016 No Charge May 21, 2016 Office Visit, Est Pt., Level 4 May 21, 2016 IMMUNIZATIONS No Known Immunizations
--- OUTSIDE RECORDS SUMMARY | 2017-09-18 11:17 | XMS REPORT ---
Author Author ANIL KHOURY Organization [facility] Address [address] [place] [address] Care Team Providers Care Corduroy Brusher Operator Name Role Phone BOBBI KHOURYNETTE Unavailable PROBLEMS Type Condition ICD9-CM Code VKE84-DL Code Onset Dates Condition Status SNOMED Code Problem ED (erectile dysfunction) N52.9 Active 819089953 Problem Restless legs syndrome G25.81 Active 296834216 Problem Abscess L02.91 Active 079807104 Problem DM neuro manif type II E11.49 Active 31403828 Problem Sinusitis, unspecified chronicity, unspecified location J32.9 Active 56416493 Problem Decubital ulcer L89.90 Active 974924961 Problem COPD (chronic obstructive pulmonary disease) J44.9 Active 32876819 Problem Cough R05 Active 13974841 Problem 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 641669672 Problem GERD (gastroesophageal reflux disease) K21.9 Active 108822583 Problem Diabetes E11.9 Active 64889196 Problem Back pain M54.9 Active 570060341 Problem HTN (hypertension) I10 Active 48281203 Problem Insomnia G47.00 Active 346494453 ALLERGIES No Information SOCIAL HISTORY Never Assessed PLAN OF CARE VITAL SIGNS MEDICATIONS Medication Instructions Dosage Frequency Start Date End Date Duration Status Vicoprofen 7.5-200 MG Orally 3 times a day 1 tablet as needed 8h 17 Jun, 2015 28 days Active Lyrica 150 TAKE(1) CAPSULE BY MOUTH TWICE DAILY 28 days Active RESULTS No Results PROCEDURES No Known procedures IMMUNIZATIONS No Known Immunizations MEDICAL (GENERAL) HISTORY Type Description Date Medical History hypertension Medical History Type 2 Diabetes Medical History Hep C Medical History Depression Medical History Anxiety Surgical History Right little toe amputation Hospitalization History Psych hospitalizations(numerous) Hospitalization History for surgeries
--- OUTSIDE RECORDS SUMMARY | 2017-09-18 11:17 | XMS REPORT ---
Author ANIL Ribeiro [facility] eClinicalWorks Address Unknown Phone Unavailable Care Team Providers Care Project Manager Senior Name Role Phone ANIL KHOURY Unavailable Allergies [...] Problem GERD (gastroesophageal reflux disease) K21.9 Active Medications Medication Code System Code Instructions Start Date End Date Status Dosage Vicoprofen [facility] [address]-23 7.5-200 MG Orally 2 times a day Mar 28, 2015 Jun 25, 2015 1 tablet as needed Results No Known Results Summary Purpose eClinicalWorks Submission
--- OUTSIDE RECORDS SUMMARY | 2017-09-18 11:17 | XMS REPORT ---
Author Author ANIL KHOURY Organization [facility] Address [address] [place] [address] Care Team Providers Care Dock Superintendent Name Role Phone IRAIDA ANIL Unavailable PROBLEMS Type Condition ICD9-CM Code VKG59-IA Code Onset Dates Condition Status SNOMED Code Problem ED (erectile dysfunction) N52.9 Active 274714320 Problem Restless legs syndrome G25.81 Active 477805375 Problem Abscess L02.91 Active 560755099 Problem DM neuro manif type II E11.49 Active 30997881 Problem Sinusitis, unspecified chronicity, unspecified location J32.9 Active 22337681 Problem Decubital ulcer L89.90 Active 778950833 Problem COPD (chronic obstructive pulmonary disease) J44.9 Active 06894480 Problem Cough R05 Active 27873265 Problem 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
--- OUTSIDE RECORDS SUMMARY | 2017-09-18 11:17 | XMS REPORT ---
Author ANIL Ribeiro [facility] eClinicalWorks Address Unknown Phone Unavailable Care Team Providers Care Field Test Engineer Name Role Phone ANIL KHOURY Unavailable Allergies, Adverse Reactions, Alerts Substance Reaction Event Type Latex Info Not Available Drug Allergy Thorazine Info Not Available Drug Allergy Haldol Info Not Available Drug Allergy Problems Problem Type Condition Code Onset Dates Condition Status Assessment Diabetes E11.9 Active Problem HTN (hypertension) I10 Active Problem Insomnia G47.00 Active Problem Abscess L02.91 Active Problem Restless legs syndrome G25.81 Active Problem COPD (chronic obstructive pulmonary disease) J44.9 Active Problem ED (erectile dysfunction) N52.9 Active Problem Diabetes E11.9 Active Problem GERD (gastroesophageal reflux disease) K21.9 Active Problem Back pain M54.9 Active Assessment COPD (chronic obstructive pulmonary disease) J44.9 Active Assessment GERD (gastroesophageal reflux disease) K21.9 Active Assessment Restless legs syndrome G25.81 Active Assessment HTN (hypertension) I10 Active Medications Medication Code System Code Instructions Start Date End Date Status Dosage benztropine ND 0 1 mg Jan 03, 2014 take 1 tablet (1 mg) by oral route 3 times per day Pepcid [facility] [address]-40 20 MG May 31, 2014 1 tablet by Oral route 2 times per day Metformin HCl [facility] [address]-25 1000 MG Orally Twice a day Apr 24, 2015 1 tablet with meals Vistaril [facility] [address]-58 50 mg Jan 03, 2014 take 1 capsule (50 mg) by oral route 4 times per day Vicoprofen [facility] [address]-07 7.5-200 MG Orally 2 times a day Mar 28, 2015 1 tablet as needed Depakote [facility] [address]-83 500 mg Jan 03, 2014 take 1 tablet (500 mg) by oral route 3 times per day Lyrica [facility] [address]-67 150 MG Twice a day May 23, 2014 take 1 capsule (150 mg) by oral route 2 times per day Diagnosis codes (729.1) (356.9) Elavil [facility] 0 75 Once a day Dec 09, 2012 1-2 tablet by Oral route 1 time per day Actos [facility] [address]-37 30 MG Orally Once a day Apr 24, 2015 1 tablet Invega Sustenna [facility] [address]-16 234 mg/1.5 mL Apr 18, 2014 every 3 weeks Pepcid [facility] [address]-90 40 MG Orally Once a day Mar 02, 2015 1 tablet Test strips [facility] 0 1 Once a day Mar 28, 2015 as directed [facility] Blood Glucose Meter [facility] 8396-855211 w/Device Once a day Mar 28, 2015 as directed ProAir HFA [facility] [address]-73 108 (90 Base) MCG/ACT Inhalation every 4 hrs NEEDED ONLY Jan 09, 2015 2 puffs NEEDED Norvasc [facility] [address]-84 10 MG Orally Once a day October 27, 2014 1 tablet Metformin HCl [facility] [address]-66 500 MG Orally Twice a day October 04, 2014 1 tablet with meals Viagra [facility] [address]-73 100 MG Orally Once a day Mar 02, 2015 May 31, 2015 1 tablet as needed Requip [facility] [address]-65 3 MG Orally Once a day Mar 28, 2015 1 tablet 1 to 3 hours before bedtime Cymbalta [facility] [address]-16 60 mg Jan 03, 2014 take 1 capsule (60 mg) by oral route once daily Lisinopril-Hydrochlorothiazide [facility] [address]-61 20-25 MG Orally Once a day Apr 24, 2015 1 tablet Lisinopril-Hydrochlorothiazide [facility] [address]-59 10-12.5 MG Orally 2 times a day Apr 18, 2014 take 0.5 tablet in a.m. and 0.5 tablet in the p.m. Procedures Procedure Coding System Code Date [facility] VISIT ESTABLISHED PATIENT CPT-4 G0467 Apr 24, 2015 Office Visit, Est Pt., Level 4 CPT-4 70480 Apr 24, 2015 [facility] Apr 24, 2015 VENIPUNCT, ROUTINE* CPT-4 91433 Apr 24, 2015 Vital Signs Date/Time: Apr 24, 2015 Temperature 98.1 F Weight 271.9 lbs Height 70 in BMI 39.01 Index Blood Pressure Diastolic 110 mmHg Blood Pressure Systolic 198 mmHg Cardiac Monitoring Heart Rate 112 bpm Results Name Result Date Reference Range Unit Abnormality Flag CBC ----Lymphs 30 29730815 % ----Neutrophils 58 75600354 % ----Baso (Absolute) 0.0 08691978 0.0-0.2 x10E3/uL ----Hemoglobin 15.9 84318219 12.6-17.7 g/dL ----Eos (Absolute) 0.1 98050909 0.0-0.4 x10E3/uL ----Hematocrit 45.0 57477918 37.5-51.0 % ----Monocytes(Absolute) 0.6 65589371 0.1-0.9 x10E3/uL ----MCV 92 21242674 79-97 fL ----Lymphs (Absolute) 1.9 42166225 0.7-3.1 x10E3/uL ----MCH 32.6 34331213 26.6-33.0 pg ----Neutrophils (Absolute) 3.7 89698866 1.4-7.0 x10E3/uL ----MCHC 35.3 13318760 31.5-35.7 g/dL ----Immature Granulocytes 0 05769377 % ----Basos 1 92628571 % ----RDW 13.3 22243315 12.3-15.4 % ----Immature Grans (Abs) 0.0 72180244 0.0-0.1 x10E3/uL ----WBC 6.3 12565967 3.4-10.8 x10E3/uL ----Platelets 239 66753689 150-379 x10E3/uL ----Eos 1 49162570 % ----RBC 4.87 22758116 4.14-5.80 x10E6/uL ----Monocytes 10 93501347 % LIPID PANEL ----LDL Cholesterol Calc 99 69951052 0-99 mg/dL ----VLDL Cholesterol John 27 06811200 5-40 mg/dL ----Cholesterol, Total 178 02511194 100-199 mg/dL ----HDL Cholesterol 52 20150424 >39 mg/dL ----Triglycerides 133 15482562 0-149 mg/dL ROUTINE VENIPUNCTURE TSH ----TSH 2.040 23606305 0.450-4.500 uIU/mL CMP ----Potassium, Serum 4.4 20150424 3.5-5.2 mmol/L ----Sodium, Serum 134 30300280 134-144 mmol/L ----BUN/Creatinine Ratio 6 06950420 9-20 L ----eGFR If Africn Am 126 12652539 >59 mL/min/1.73 ----eGFR If NonAfricn Am 109 68155680 >59 mL/min/1.73 ----Creatinine, Serum 0.84 20150424 0.76-1.27 mg/dL ----BUN 5 03559928 6-24 mg/dL L ----Glucose, Serum 161 57474990 65-99 mg/dL H ----AST (SGOT) 128 39320298 0-40 IU/L H ----Globulin, Total 2.9 03266691 1.5-4.5 g/dL ----ALT (SGPT) 146 01850561 0-44 IU/L H ----A/G Ratio 1.6 20150424 1.1-2.5 ----Bilirubin, Total 0.6 20150424 0.0-1.2 mg/dL ----Alkaline Phosphatase, S 107 37409275 39-117 IU/L ----Carbon Dioxide, Total 22 20150424 18-29 mmol/L ----Calcium, Serum 9.7 29065719 8.7-10.2 mg/dL ----Protein, Total, Serum 7.5 21440867 6.0-8.5 g/dL ----Albumin, Serum 4.6 66357728 3.5-5.5 g/dL ----Chloride, Serum 92 94461529 97-108 mmol/L L Summary Purpose eClinicalWorks Submission
--- OUTSIDE RECORDS SUMMARY | 2017-09-18 11:17 | XMS REPORT ---
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 240303260 Problem Decubital ulcer L89.90 Active 893976395 Problem Restless legs syndrome G25.81 Active 521043853 Problem GERD (gastroesophageal reflux disease) K21.9 Active 236970619 Problem COPD (chronic obstructive pulmonary disease) J44.9 Active 11752436 Problem Abscess L02.91 Active 316454382 ALLERGIES Unknown Allergies SOCIAL HISTORY No smoking Hx information available PLAN OF CARE VITAL SIGNS MEDICATIONS Medication Instructions Dosage Frequency Start Date End Date Duration Status [facility] Blood Glucose Meter w/Device as directed Mar, Active RESULTS No Results PROCEDURES No Known procedures IMMUNIZATIONS No Known Immunizations
--- OUTSIDE RECORDS SUMMARY | 2017-09-18 11:17 | XMS REPORT ---
Author ANIL Ribeiro [facility] eClinicalWorks Address Unknown Phone Unavailable Care Team Providers Care Workgroup Leader Name Role Phone ANIL KHOURY Unavailable Allergies, [...] GERD (gastroesophageal reflux disease) K21.9 Active Assessment Bipolar 1 disorder F31.9 Active Assessment Back pain M54.9 Active Assessment Insomnia G47.00 Active Assessment HTN (hypertension) I10 Active Assessment COPD (chronic obstructive pulmonary disease) J44.9 Active Assessment Diabetes E11.9 Active Assessment Restless legs syndrome G25.81 Active Assessment GERD (gastroesophageal reflux disease) K21.9 Active Medications Medication Code System Code Instructions Start Date End Date Status Dosage Depakote [facility] [address]-46 500 MG Orally 3 times a day May 16, 2015 1 tablet Elavil NDC 0 75 Once a day Dec 09, 2012 1-2 tablet by Oral route 1 time per day Lyrica [facility] [address]-99 150 MG Orally Twice a day 1 capsule Vistaril [facility] [address]-33 50 mg Jan 03, 2014 take 1 capsule (50 mg) by oral route 4 times per day Omeprazole [facility] [address]-61 40 MG Orally Once a day Jun 20, 2015 1 capsule benztropine NDC 0 1 mg Jan 03, 2014 take 1 tablet (1 mg) by oral route 3 times per day Requip [facility] [address]-96 3 MG Orally Once a day Mar 28, 2015 1 tablet 1 to 3 hours before bedtime Ranitidine HCl [facility] [address]-13 150 MG Orally Twice a day August 09, 2015 1 capsule Invega Sustenna [facility] [address]-14 234 mg/1.5 mL Apr 18, 2014 every 3 weeks Actos [facility] [address]-51 45 MG Orally Once a day May 09, 2015 1 tablet Lisinopril-Hydrochlorothiazide [facility] [address]-36 20-25 MG Orally Once a day Apr 24, 2015 1 tablet Metoprolol Succinate ER [facility] [address]-89 50 MG Orally Once a day Jun 06, 2015 1 tablet Vicoprofen [facility] [address]-20 7.5-200 MG Orally 3 times a day Jun 27, 2015 1 tablet as needed Metformin HCl [facility] [address]-56 1000 MG Orally Twice a day Apr 24, 2015 1 tablet with meals Cymbalta [facility] [address]-86 60 MG Orally Once a day May 16, 2015 1 capsule Silvadene [facility] [address]-94 1 % Externally Once a day May 09, 2015 1 application to affected area [facility] Blood Glucose Meter [facility] 8396-832824 w/Device Once a day Mar 28, 2015 as directed Ketoconazole [facility] [address]-26 2 % Externally Once a day Jun 13, 2015 1 application to affected area Norvasc [facility] [address]-55 10 MG Orally Once a day May 16, 2015 1 tablet Test strips [facility] 0 1 Once a day Mar 28, 2015 as directed Procedures Procedure Coding System Code Date [facility] VISIT ESTABLISHED PATIENT CPT-4 G0467 August 31, 2015 Office Visit, Est Pt., Level 4 CPT-4 02360 August 31, 2015 GLYCATED HEMOGLOBIN TEST CPT-4 11168 August 31, 2015 Vital Signs Date/Time: August 31, 2015 Temperature 98.4 F Weight 269.5 lbs Height 70 in BMI 38.67 Index Blood Pressure Diastolic 92 mmHg Blood Pressure Systolic 142 mmHg Cardiac Monitoring Heart Rate 92 bpm Results Name Result Date Reference Range Unit Abnormality Flag A1C (IN HOUSE) ----A1C IN HOUSE 5.3 [id number] 4.3 - 5.6 % ----Previous A1c 6.4 [id number] ----Lot [id number] ----Exp date [id number] Summary Purpose [facility]
--- OUTSIDE RECORDS SUMMARY | 2017-09-18 11:18 | XMS REPORT ---
Author Author ANIL KHOURY Organization [facility] Address [address] [place] [address] Care Team Providers Care Radioisotope Technician Name Role Phone IRAIDA ANIL Unavailable PROBLEMS Type Condition ICD9-CM Code [id number] Code Onset Dates Condition Status SNOMED Code Problem ED (erectile dysfunction) N52.9 Active 047972310 Problem Restless legs syndrome G25.81 Active 463804446 Problem Abscess L02.91 Active 050395740 Problem DM neuro manif type II E11.49 Active 70978220 Problem Sinusitis, unspecified chronicity, unspecified location J32.9 Active 40149551 Problem Decubital ulcer L89.90 Active 126203887 Problem COPD (chronic obstructive pulmonary disease) J44.9 Active 25739664 Problem Cough R05 Active 60167138 Problem 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
--- OUTSIDE RECORDS SUMMARY | 2017-09-18 11:18 | XMS REPORT ---
Author ANIL Ribeiro [facility] eClinicalWorks Address Unknown Phone Unavailable Care Team Providers Care Salt Washer Name Role Phone ANIL KHOURY Unavailable Allergies [...] GERD (gastroesophageal reflux disease) K21.9 Active Medications No Known Medications Results No Known Results Summary Purpose eClinicalWorks Submission
--- OUTSIDE RECORDS SUMMARY | 2017-09-18 11:18 | XMS REPORT ---
Author ANIL Ribeiro [facility] eClinicalWorks Address Unknown Phone Unavailable Care Team Providers Care Investment Consultant Name Role Phone ANIL KHOURY Unavailable Allergies [...] Instructions Start Date End Date Status Dosage Metoprolol Succinate ER [facility] [address]-86 50 MG Orally Once a day Jun 06, 2015 1 tablet Actos [facility] [address]-93 45 MG Orally Once a day May 09, 2015 1 tablet Results No Known Results Summary Purpose eClinicalWorks Submission
--- OUTSIDE RECORDS SUMMARY | 2017-09-18 11:18 | XMS REPORT ---
Author ANIL Ribeiro Organization eClinicalWorks Address Unknown Phone Unavailable Care Team Providers Care Manager Case Name Role Phone ANIL KHOURY Unavailable Allergies No Known Allergies Problems Problem Type Condition Code Onset Dates Condition Status Problem Insomnia G47.00 Active Problem Restless legs syndrome G25.81 Active Problem GERD (gastroesophageal reflux disease) K21.9 Active Problem Abscess L02.91 Active Problem Diabetes E11.9 Active Problem HTN (hypertension) I10 Active Problem Back pain M54.9 Active Problem ED (erectile dysfunction) N52.9 Active Medications Medication Code System Code Instructions Start Date End Date Status Dosage Requip [facility] [address]-86 3 MG Orally Once a day Mar 28, 2015 1 tablet 1 to 3 hours before bedtime Results No Known Results Summary Purpose eClinicalWorks Submission
--- OUTSIDE RECORDS SUMMARY | 2017-09-18 11:18 | XMS REPORT ---
Author ANIL Ribeiro [facility] eClinicalWorks Address Unknown Phone Unavailable Care Team Providers Care Residential Builder Name Role Phone ANIL KHOURY Unavailable Allergies, [...] GERD (gastroesophageal reflux disease) K21.9 Active Assessment Diabetes E11.9 Active Assessment Decubital ulcer L89.90 Active Assessment HTN (hypertension) I10 Active Medications Medication Code System Code Instructions Start Date End Date Status Dosage Test strips NDC 0 1 Once a day Mar 28, 2015 as directed Viagra [facility] [address]-24 100 MG Orally Once a day Mar 02, 2015 May 31, 2015 1 tablet as needed benztropine NDC 0 1 mg Jan 03, 2014 take 1 tablet (1 mg) by oral route 3 times per day [facility] Blood Glucose Meter [facility] 0196-055819 w/Device Once a day Mar 28, 2015 as directed Metformin HCl [facility] [address]-43 1000 MG Orally Twice a day Apr 24, 2015 1 tablet with meals Elavil NDC 0 75 Once a day Dec 09, 2012 1-2 tablet by Oral route 1 time per day Depakote [facility] [address]-70 500 MG Orally 3 times a day May 16, 2015 1 tablet Lyrica [facility] [address]-79 150 MG Orally Twice a day 1 capsule Vicoprofen [facility] [address]-47 7.5-200 MG Orally 2 times a day Mar 28, 2015 1 tablet as needed Norvasc [facility] [address]-06 10 MG Orally Once a day May 16, 2015 1 tablet Silvadene [facility] [address]-27 1 % Externally Once a day May 09, 2015 1 application to affected area Cymbalta [facility] [address]-59 60 MG Orally Once a day May 16, 2015 1 capsule Pepcid [facility] [address]-88 40 MG Orally Once a day Mar 02, 2015 1 tablet Lisinopril-Hydrochlorothiazide [facility] [address]-06 20-25 MG Orally Once a day Apr 24, 2015 1 tablet Actos [facility] [address]-52 45 MG Orally Once a day May 09, 2015 1 tablet Invega Sustenna [facility] [address]-84 234 mg/1.5 mL Apr 18, 2014 every 3 weeks Vistaril [facility] [address]-49 50 mg Jan 03, 2014 take 1 capsule (50 mg) by oral route 4 times per day Requip [facility] [address]-93 3 MG Orally Once a day Mar 28, 2015 1 tablet 1 to 3 hours before bedtime Procedures Procedure Coding System Code Date Office Visit, Est Pt., Level 4 CPT-4 12049 May 16, 2015 [facility] VISIT ESTABLISHED PATIENT CPT-4 G0467 May 16, 2015 Vital Signs Date/Time: May 16, 2015 Temperature 98.0 F Weight 270.9 lbs Height 70 in BMI 38.87 Index Blood Pressure Diastolic 110 mmHg Blood Pressure Systolic 160 mmHg Cardiac Monitoring Heart Rate 98 bpm Results No Known Results Summary Purpose eClinicalWorks Submission
--- OUTSIDE RECORDS SUMMARY | 2017-09-18 11:18 | XMS REPORT ---
Author Author EMILIANO HAWTHORNE Organization [facility] Address [address] [place] [address] Care Team Providers Care Audiology Assistant Name Role Phone EMILIANO HAWTHORNE Unavailable PROBLEMS Type Condition ICD9-CM Code [id number] Code Onset Dates Condition Status SNOMED Code Problem ED (erectile dysfunction) N52.9 Active 881933493 Problem Restless legs syndrome G25.81 Active 675675376 Problem Abscess L02.91 Active 234610085 Problem DM neuro manif type II E11.49 Active 16680306 Problem Sinusitis, unspecified chronicity, unspecified location J32.9 Active 70419412 Problem Decubital ulcer L89.90 Active 309947116 Problem COPD (chronic obstructive pulmonary disease) J44.9 Active 70723797 Problem Cough R05 Active 60171252 Problem 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 381182743 Problem GERD (gastroesophageal reflux disease) K21.9 Active 173474682 Problem Diabetes E11.9 Active 61362612 Problem Back pain M54.9 Active 764203456 Problem HTN (hypertension) I10 Active 50669026 Problem Insomnia G47.00 Active 606915434 ALLERGIES No Information SOCIAL HISTORY Never Assessed PLAN OF CARE Activity Details Follow Up 3 Months Reason: VITAL SIGNS MEDICATIONS Unknown Medications RESULTS No Results PROCEDURES Procedure Date Ordered Result Body Site DEBRIDE NAIL, 6 OR MORE October 03, 2016 [facility] VISIT ESTABLISHED PATIENT October 03, 2016 IMMUNIZATIONS No Known Immunizations MEDICAL (GENERAL) HISTORY Type Description Date Medical History hypertension Medical History Type 2 Diabetes Medical History Hep C Medical History Depression Medical History Anxiety Surgical History Right little toe amputation Hospitalization History Psych hospitalizations(numerous) Hospitalization History for surgeries
--- OUTSIDE RECORDS SUMMARY | 2017-09-18 11:19 | XMS REPORT ---
Author Author ANIL KHOURY Organization [facility] Address [address] [place] [address] Care Team Providers Care Quality Control Tech Name Role Phone IRAIDA ANIL Unavailable PROBLEMS Type Condition ICD9-CM Code [id number] Code Onset Dates Condition Status SNOMED Code Problem ED (erectile dysfunction) N52.9 Active 185382918 Problem Restless legs syndrome G25.81 Active 372902277 Problem Abscess L02.91 Active 398266916 Problem DM neuro manif type II E11.49 Active 88897706 Problem Sinusitis, unspecified chronicity, unspecified location J32.9 Active 14393039 Problem Decubital ulcer L89.90 Active 677233042 Problem COPD (chronic obstructive pulmonary disease) J44.9 Active 47855854 Problem Cough R05 Active 65819132 Problem 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 198144561 Problem GERD (gastroesophageal reflux disease) K21.9 Active 416150560 Problem Diabetes E11.9 Active 68612012 Problem Back pain M54.9 Active 631366474 Problem HTN (hypertension) I10 Active 78399521 Problem Insomnia G47.00 Active 449152625 ALLERGIES Unknown Allergies SOCIAL HISTORY No smoking Hx information available PLAN OF CARE VITAL SIGNS MEDICATIONS Medication Instructions Dosage Frequency Start Date End Date Duration Status Hydrocodone-Ibuprofen 7.5-200 MG Orally 3 times a day 1 tablet as needed 8h May, Active RESULTS No Results PROCEDURES No Known procedures IMMUNIZATIONS No Known Immunizations
--- OUTSIDE RECORDS SUMMARY | 2017-09-18 11:19 | XMS REPORT ---
Author ANIL Ribeiro [facility] eClinicalWorks Address Unknown Phone Unavailable Care Team Providers Care Order Dispatcher Chief Name Role Phone ANIL KHOURY Unavailable Allergies, [...] Active Assessment HTN (hypertension) I10 Active Assessment Back pain M54.9 Active Assessment Decubital ulcer L89.90 Active Assessment GERD (gastroesophageal reflux disease) K21.9 Active Assessment Restless legs syndrome G25.81 Active Assessment Diabetes E11.9 Active Medications Medication Code System Code Instructions Start Date End Date Status Dosage [facility] Blood Glucose Meter [facility] 8396-053421 w/Device Once a day Mar 28, 2015 as directed Elavil [place] 0 75 Once a day Dec 09, 2012 1-2 tablet by Oral route 1 time per day Metformin HCl [facility] [address]-61 1000 MG Orally Twice a day Apr 24, 2015 1 tablet with meals benztropine [place] 0 1 mg Jan 03, 2014 take 1 tablet (1 mg) by oral route 3 times per day Lisinopril-Hydrochlorothiazide [facility] [address]-02 20-25 MG Orally Once a day Apr 24, 2015 1 tablet Pepcid [facility] [address]-42 40 MG Orally Once a day Mar 02, 2015 1 tablet Silvadene [facility] [address]-94 1 % Externally Once a day May 09, 2015 1 application to affected area Invega Sustenna [facility] [address]-54 234 mg/1.5 mL Apr 18, 2014 every 3 weeks Viagra [facility] [address]-70 100 MG Orally Once a day Mar 02, 2015 May 31, 2015 1 tablet as needed Toprol XL [facility] [address]-29 50 MG Orally Once a day May 09, 2015 1 tablet Vicoprofen [facility] [address]-41 7.5-200 MG Orally 2 times a day Mar 28, 2015 1 tablet as needed Actos [facility] [address]-07 45 MG Orally Once a day May 09, 2015 1 tablet Requip [facility] [address]-23 3 MG Orally Once a day Mar 28, 2015 1 tablet 1 to 3 hours before bedtime Test strips [facility] 0 1 Once a day Mar 28, 2015 as directed Vistaril [facility] [address]-65 50 mg Jan 03, 2014 take 1 capsule (50 mg) by oral route 4 times per day Procedures Procedure Coding System Code Date [facility] VISIT ESTABLISHED PATIENT CPT-4 G0467 May 09, 2015 Office Visit, Est Pt., Level 4 CPT-4 12582 May 09, 2015 GLYCATED HEMOGLOBIN TEST CPT-4 14250 May 09, 2015 Vital Signs Date/Time: May 09, 2015 Temperature 96.6 F Weight 274.8 lbs Height 70 in BMI 39.43 Index Blood Pressure Diastolic 100 mmHg Blood Pressure Systolic 160 mmHg Cardiac Monitoring Heart Rate 110 bpm Results Name Result Date Reference Range Unit Abnormality Flag A1C (IN HOUSE) ----A1C IN HOUSE 6.4 [id number] 4.30 - 5.6 % ----Previous A1c 6.7 [id number] ----Lot # [id number] ----Exp date [id number] Summary Purpose eClinicalWorks Submission
--- OUTSIDE RECORDS SUMMARY | 2017-09-18 11:19 | XMS REPORT ---
Author Author MELIZA THORNTON Organization eClinicalWorks Address Unknown Phone Unavailable Care Team Providers Care Stencil Machine Operator Name Role Phone MELIZA THORNTON CP Unavailable [...]
--- OUTSIDE RECORDS SUMMARY | 2017-09-18 11:19 | XMS REPORT ---
Author Author ANIL KHOURY Organization [facility] Address [address] [place] [address] Care Team Providers Care Machine Precision Engraver Name Role Phone BOBBI KHOURYNETTE Unavailable PROBLEMS Type Condition ICD9-CM Code [id number] Code Onset Dates Condition Status SNOMED Code Problem ED (erectile dysfunction) N52.9 Active 949144843 Problem Restless legs syndrome G25.81 Active 660929375 Problem Abscess L02.91 Active 158078840 Problem DM neuro manif type II E11.49 Active 17332536 Problem Sinusitis, unspecified chronicity, unspecified location J32.9 Active 67427511 Problem Decubital ulcer L89.90 Active 929216285 Problem COPD (chronic obstructive pulmonary disease) J44.9 Active 30078567 Problem Cough R05 Active 13335612 Problem 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
--- OUTSIDE RECORDS SUMMARY | 2017-09-18 11:19 | XMS REPORT ---
Author Author ANIL KHOURY Organization [facility] Address [address] [place] [address] Care Team Providers Care Liquefaction Plant Operator Name Role Phone IRAIDA ANIL Unavailable PROBLEMS Type Condition ICD9-CM Code IGD07-RM Code Onset Dates Condition Status SNOMED Code Problem GERD (gastroesophageal reflux disease) K21.9 Active 505377625 Problem Abscess L02.91 Active 411661844 Problem Restless legs syndrome G25.81 Active 056238641 Problem DM neuro manif type II E11.49 Active 16699504 Problem Sinusitis, unspecified chronicity, unspecified location J32.9 Active 69520215 Problem Decubital ulcer L89.90 Active 620575754 Problem COPD (chronic obstructive pulmonary disease) J44.9 Active 96430468 Problem Cough R05 Active 24119637 Problem 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
--- OUTSIDE RECORDS SUMMARY | 2017-09-18 11:19 | XMS REPORT ---
Author Author EMILIANO HAWTHORNE Organization [facility] Address [address] [place] [address] Care Team Providers Care Shorthand Reporter Name Role Phone EMILIANO HAWTHORNE Unavailable PROBLEMS Type Condition ICD9-CM Code QBE97-KS Code Onset Dates Condition Status SNOMED Code Problem HTN (hypertension) I10 Active 73962394 Problem Restless legs syndrome G25.81 Active 026893991 Problem GERD (gastroesophageal reflux disease) K21.9 Active 624449329 Problem ED (erectile dysfunction) N52.9 Active 363513877 Problem PAD (peripheral artery disease) I73.9 Active 380377695 Problem Ulcer of right foot, unspecified ulcer stage L97.519 Active 08138189 Problem 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 992402908 Problem COPD (chronic obstructive pulmonary disease) J44.9 Active 32512618 Problem DM neuro manif type II E11.49 Active 47791199 Problem Sinusitis, unspecified chronicity, unspecified location J32.9 Active 52205958 ALLERGIES No Information ENCOUNTERS Encounter Location Date Diagnosis [place] [id number] [place] [address] 35431- 9371 Nov, [place] [id number] [place] [address] 87570- 3988 Aug, [facility] [id number] [place] [address] 01506- 3358 24 Aug, 2017 Acute cystitis with hematuria N30.01 ; Ulcer of right foot, unspecified ulcer stage L97.519 ; HTN (hypertension) I10 ; COPD (chronic obstructive pulmonary disease) J44.9 and DM neuro manif type II E11.49 [place] [id number] [place] [address] 93940- 1396 Aug, Back pain M54.9 [facility] [id number] [place] [address] 70149- 3961 29 Jul, 2017 [facility] [id number] [place] [address] 54706- 6451 Jul, Back pain M54.9 [facility] [id number] [place] [address] 15672- 6203 Jul, [facility] [id number] [place] [address] 41061- 6206 Jul, DM neuro manif type II E11.49 and Ulcer of right foot, unspecified ulcer stage L97.519 [facility] [id number] [place] [address] 58520- 9791 Jun, [facility] [id number] [place] [address] 23947- 1545 Jun, [facility] [id number] [place] [address] 47276- 8006 May, 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 complication E11.49 ; GERD (gastroesophageal reflux disease) K21.9 and PAD ( peripheral artery disease) I73.9 [place] [id number] [place] [address] 46779- 8072 17 May, 2017 Decubital ulcer L89.90 ; Diabetes E11.9 and GERD ( gastroesophageal reflux disease) K21.9 [facility] [id number] [place] [address] 83862- 4877 May, [facility] [id number] [place] [address] 57245- 4302 Apr, [facility] [id number] [place] [address] 51905- 8254 Mar, [facility] [id number] [place] [address] 61027- 5124 Mar, [facility] [id number] [place] [address] 08342- 6597 Feb, [facility] [address], [place] [address]- 2629 Feb, [facility] [id number] [place] [address] 35342- 0044 Jan, [facility] [id number] [place] [address] 27096- 9237 Jan, HTN (hypertension) I10 [facility] [id number] [place] [address] 17279- 3944 Jan, [facility] [id number] [place] [address] 19312- 5355 Dec, Back pain M54.9 [facility] [id number] [place] [address] 57179- 1256 Dec, Back pain M54.9 [facility] [id number] [place] [address] 10120 -3192 Dec, Encounter for immunization Z23 and Puncture wound of right foot, initial encounter S91.331A [facility] [id number] [place] [address] 57951- 8884 Dec, [facility] [id number] [place] [address] 60404- 9871 Nov, [facility] [id number] [place] [address] 88163- 4304 Nov, COPD (chronic obstructive pulmonary disease) J44.9 [facility] [address] [place] [address] 13879- 9387 Nov, [facility] [address] [place] [address] 29892- 5742 Oct, [facility] [address] [place] [address] 35216- 6790 Oct, [facility] [address] [place] [address] 09944- 4939 September, Onychomycosis B35.1 and DM neuro manif type II E11.49 [facility] [address], [place] [address]- 2155 September, [facility] [id number] [place] [address] 88474- 1037 Aug, [facility] [id number] [place] [address] 73748- 1621 29 Jul, 2016 Sinusitis, unspecified chronicity, unspecified location J32.9 and Cough R05 [facility] [id number] [place] [address] 16558- 9271 Jul, Back pain M54.9 [facility] [id number] [place] [address] 50531- 7354 14 Jun, 2016 Back pain M54.9 [facility] [id number] [place] [address] 73571- 7362 06 Jun, 2016 COPD (chronic obstructive pulmonary disease) J44.9 [facility] [id number] [place] [address] 90897- 9879 17 May, 2016 [facility] [id number] [place] [address] 58773- 6161 May, [facility] [address] [place] [address] 73180- 4264 May, Back pain M54.9 [facility] [id number] [place] [address] 04606- 0141 16 May, 2016 [facility] [address] [place] [address] 35665- 3436 May, [facility] [id number] [place] [address] 29662- 2033 May, Diabetes E11.9 [facility] [address], [place] [address]- 3982 11 May, 2016 Diabetes E11.9 ; GERD [...] Need for hepatitis C screening test Z11.59 [facility] [id number] [place] [address] 43299- 5419 04 May, 2016 HTN (hypertension) I10 [facility] [id number] [place] [address] 01395- 8456 29 Apr, 2016 [facility] [address] 89639- 4667 Apr, [facility] [id number] [place] [address] 32574- 0083 Apr, [facility] [id number] [place] [address] 12364- 2749 Apr, [facility] [id number] [place] [address] 54285- 3078 Apr, [facility] [id number] [place] [address] 09748- 1450 Mar, [facility] [id number] [place] [address] 79151- 3420 Mar, [facility] [id number] [place] [address] 25134- 2970 Mar, [facility] [id number] [place] [address] 13765- 7994 Mar, [facility] [id number] [place] [address] 55131- 7365 02 Mar, 2016 Dental examination Z01.20 [facility] [id number] [place] [address] 04280- 3005 24 Feb, 2016 [facility] [id number] [place] [address] 07841- 3914 Feb, [facility] [address] [place] [address] 63878- 9817 Feb, Back pain M54.9 [facility] [id number] [place] [address] 81580- 0201 Jan, [facility] [id number] [place] [address] 17714- 7099 Jan, [facility] [id number] [place] [address] 78580- 0042 Dec, Diabetes E11.9 ; GERD (gastroesophageal reflux disease) K21.9 ; ED (erectile dysfunction) N52.9 ; HTN (hypertension) I10 ; Insomnia G47.00 ; COPD (chronic obstructive pulmonary disease) J44.9 ; Neuropathy G62.9 and Bipolar depression F31.30 [facility] [id number] [place] [address] 25549- 2237 Dec, 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 complication E11.49 and Onychomycosis B35.1 [facility] [id number] [place] [address] 06691- 7946 Dec, [facility] [id number] [place] [address] 27466- 4476 Dec, [facility] [address] [place] [address] 74780- 4701 Dec, [facility] [id number] [place] [address] 94954- 8387 Dec, [facility] [id number] [place] [address] 32176- 8819 Nov, [facility] [id number] [place] [address] 900087- 3484 Nov, [facility] [address] [place] [address] 24851- 2746 Oct, [facility] [id number] [place] [address] 42743- 2056 08 Oct, 2015 [facility] [id number] [place] [address] 01240- 6295 Oct, Back pain M54.9 [facility] [id number] [place] [address] 23632- 6232 Oct, [facility] [id number] [place] [address] 98240- 6892 Oct, [facility] [id number] [place] [address] 07632- 6633 Oct, [facility] [id number] [place] [address] 81832- 3430 Oct, HTN (hypertension) I10 [place] [id number] [place] [address] 19803- 4680 Oct, Back pain M54.9 [facility] [id number] [place] [address] 92195- 7441 Oct, Chronic pain syndrome G89.4 [facility] [id number] [place] [address] 40216- 3810 September, Back pain M54.9 [facility] [id number] [place] [address] 72756- 5356 September, HTN (hypertension) I10 [facility] [id number] [place] [address] 59177- 1490 Aug, Porokeratosis Q82.8 ; Onychomycosis B35.1 and 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 complication E11.49 [place] [id number] [place] [address] 36485- 8758 Aug, GERD (gastroesophageal reflux disease) K21.9 ; Diabetes E11.9 ; HTN (hypertension) I10 ; Insomnia G47.00 ; Restless legs syndrome G25.81 ; COPD (chronic obstructive pulmonary disease) J44.9 ; Back pain M54.9 and Bipolar 1 disorder F31.9 [facility] [address] [facility] [id number] [place] [address]- 9062 Aug, [facility] [address] [facility] [id number] [place] [address]- 2836 Aug, [facility] [address] [facility] [id number] [place] [address]- 6489 Aug, [facility] [address] [facility] [id number] [place] [address], [place] [address]- 4338 Aug, [facility] [address] [facility] [id number] [place] [address]- 0425 Jul, [facility] [address] [place] [address], [place] [address]- 7785 Jul, [facility] [address] [place] [address]- 6135 Jul, [facility] [id number] [place] [address] 58373- 1479 Jul, [facility] [address] [place] [address]- 7127 Jul, [facility] [address], [place] [address]- 5954 Jul, [facility] [address], [place] [address]- 8740 17 Jun, 2015 Decubital ulcer L89.90 ; Diabetes E11.9 ; Back pain M54.9 ; HTN (hypertension) I10 and COPD (chronic obstructive pulmonary disease) J44.9 [facility] [address] [facility] [id number], [place] [address]- 3693 Jun, [facility] [address], [place] [address]- 9947 Jun, [facility] [address], [place] [address]- 1744 Jun, [facility] [address] [place] [address] 48678- 1122 Jun, [place] [address] 84315- 1481 Jun, Diabetes E11.9 ; Insomnia G47.00 ; Decubital ulcer L89.90 ; GERD (gastroesophageal reflux disease) K21.9 ; Back pain M54.9 ; Superficial fungus infection of skin B36.9 and HTN (hypertension) I10 [address] [id number] [id number] Jun, Dental examination Z01.20 [place] [id number] [place] [address] 32988- 6021 May, [place] [id number] [place] [address] 57242- 6914 May, [place] [id number] [place] [address] 55072- 1769 May, [place] [id number] [place] [address] 90712- 7078 May, Diabetes E11.9 ; HTN (hypertension) I10 and Decubital ulcer L89.90 [place] [id number] [place] [address] 89734- 1338 May, HTN (hypertension) I10 ; Decubital ulcer L89.90 and Diabetes E11.9 [place] [id number] [place] [address] 13208- 3148 Apr, Diabetes E11.9 ; GERD (gastroesophageal reflux disease) K21.9 ; Back pain M54.9 ; HTN (hypertension) I10 ; Restless legs syndrome G25.81 and Decubital ulcer L89.90 [place] [address] [place] [address] 46251- 3229 Apr, [place] [id number] [place] [address] 34811- 3283 Apr, Diabetes E11.9 ; HTN (hypertension) I10 ; Restless legs syndrome G25.81 ; GERD (gastroesophageal reflux disease) K21.9 and COPD ( chronic obstructive pulmonary disease) J44.9 [place] [address] 36727- 1240 Mar, [facility] [address] 89297- 3456 Mar, [facility] [address] 61168- 9108 Mar, Diabetes E11.9 ; Abscess L02.91 and Restless legs syndrome G25.81 [place] [address] 20289- 9999 Mar, [place] [address] 06182- 4684 Feb, GERD (gastroesophageal reflux disease) K21.9 ; Back pain M54.9 ; ED (erectile dysfunction) N52.9 ; Diabetes E11.9 ; HTN (hypertension) I10 and Insomnia G47.00 [place] [id number] [place] [address] 64202- 9865 Feb, [place] [address] 84069- 5032 Feb, [place] [id number] [place] [address] 49344- 3698 Jan, [place] [address] 58963- 7734 Jan, Diabetes 250.00 ; Nondependent cannabis abuse, continuous 305.21 ; Cough 786.2 ; Schizoaffective disorder, unspecified 295.70 ; Sciatica 724.3 ; Other, mixed, or unspecified nondependent drug abuse, unspecified 305.90 ; Chronic pain 338.29 ; GERD (gastroesophageal reflux disease) 530.81 and HTN (hypertension) 401.9 [place] [address] 19696- 4806 Jan, [facility] [address], [place] [address]- 2570 Jan, [facility] [id number] [place] [address] 14451625- 9869 Jan, Chronic pain associated with significant psychosocial dysfunction 338.4 ; Diabetes mellitus without mention of complication, type I [ juvenile type], uncontrolled 250.03 ; Benign essential hypertension 401.1 ; Schizoaffective disorder, unspecified 295.70 ; Wheezing 786.07 ; Ear ache 388.70 ; Cough 786.2 ; Sciatica 724.3 and Foot pain, bilateral 729.5 [facility] [id number] [place] [address] 36390- 2216 Dec, [facility] [id number] [place] [address] 27162- 4965 Dec, [facility] [id number] [place] [address] 60309- 9533 Dec, [facility] [id number] [place] [address] 42931- 8473 Dec, [facility] [id number] [place] [address] 17427- 8312 Dec, [facility] [id number] [place] [address] 43786- 5726 Nov, Elevated liver enzymes 790.5 [facility] [id number] [place] [address] 91590- 4950 Nov, [facility] [address] [place] [address] 85280- 7681 Nov, [facility] [id number] [place] [address] 19223- 2204 Nov, [facility] [id number] [place] [address] 42869- 1438 Nov, Benign essential hypertension 401.1 ; Diabetes mellitus without mention of complication, type I [juvenile type], uncontrolled 250.03 and Nondependent cannabis abuse, continuous 305.21 [facility] [address], [place] [address]- 7804 Oct, Cellulitis 682.9 and Benign essential hypertension 401.1 [facility] [address] [facility] [id number], [place] [address]- 2546 08 Oct, 2014 [facility] [id number] [place] [address] 68129- 7708 September, [facility] [address] [facility] [id number] [place] [address] 03110- 3170 September, [facility] [id number] [place] [address] 12200- 5228 Aug, [facility] [id number] [address]- 7049 Aug, [facility] [id number] [place] [address] 82582- 6410 Aug, [facility] [address], [place] [address]- 8060 Aug, [facility] [address] [place] [address] 41948- 3656 Jul, [facility] [address], [place] [address]- 4388 Jul, [facility] [address], [place] [address]- 0877 Jul, [facility] [address], [place] [address]- 1204 Jul, [facility] [address], [place] [address]- 1941 Jul, [facility] [address], [place] [address]- 2376 Jul, [facility] [address], [place] [address]- 1358 Jun, [facility] [address] [id number] [place] [address]- 5612 Jun, [facility] [place] [facility] [address] [id number] [place] [address]- 4154 Jun, [facility] [place] [facility] [address] [id number] [place] [address]- 8046 Jun, [facility] [place] [facility] [address] [id number] [place] [address]- 0292 Jun, [facility] [place] [facility] [address] [id number] [place] [address]- 0798 May, [facility] [place] [facility] [address] [id number] [place] [address]- 7866 May, [facility] [place] [facility] [address] [id number] [place] [address]- 9526 May, [facility] [place] [facility] [address] [id number] [place] [address]- 2842 May, [facility] [place] [facility] [address] [id number] [place] [address]- 4909 May, [facility] [place] [facility] [address] [id number] [place] [address]- 5788 May, [facility] [place] [facility] [address] [id number], [place] [address]- 1456 May, [facility] [place] [facility] [address] [id number], [place] [address]- 1717 May, [facility] [place] [facility] [address] [id number] [place] [address]- 4026 Apr, [facility] [place] [facility] [address] [id number] [place] [address]- 2861 Apr, [facility] [place] [facility] [address] [id number] [place] [address]- 8476 Apr, [facility] [place] [facility] [address] [id number] [place] [address] Apr, [facility] [place] [facility] [address] [id number] [place] [address] Mar, [facility] [place] [facility] [address] [id number] [place] [address] Mar, [facility] [place] [facility] [address] [id number] [place] [address] Mar, [facility] [place] [facility] [address] [id number] [place] [address] Mar, [facility] [place] [facility] [address] [id number] [place] [address] Feb, [facility] [place] [facility] [address] [id number] [place] [address] Feb, [facility] [place] [facility] [address] [id number] [place] [address] Feb, [facility] [place] [facility] [address] [id number] [place] [address] Feb, [facility] [place] [facility] [address] [id number] [place] [address] Feb, [facility] [place] [facility] [address] [facility] [id number] [place] [address] Feb, [facility] [place] [facility] [address] [id number] [place] [address] Jan, [facility] [place] [facility] [address] [id number] [place] [address] Jan, [facility] [place] [facility] [address] [id number] [place] [address] Jan, [facility] [place] [facility] [address] [id number] [place] [address] Jan, [facility] [place] [facility] [address] [id number] [place] [address] Dec, [facility] [place] [facility] [address] [id number] [place] [address] Dec, [facility] [place] [facility] [address] [id number] [place] [address] Dec, [facility] [place] [facility] [address] [id number] [place] [address] Dec, [facility] [place] [facility] [address] [id number] [place] [address] Dec, [facility] [place] [facility] [address] [id number] [place] [address] Dec, [facility] [place] [facility] [address] [id number] [place] [address] Oct, [facility] [place] [facility] [address] [id number] [place] [address] Oct, [facility] [place] [facility] [address] [id number] [place] [address] September, [facility] [place] [facility] [address] [id number] [place] [address] September, [facility] [place] [facility] [address] [id number] [place] [address] September, [facility] [place] [facility] [address] [id number] [place] [address] September, [facility] [place] [facility] [address] [id number] [place] [address] September, [facility] [place] [facility] [address] [id number] [place] [address] September, [facility] [place] [facility] [address] [id number] [place] [address] Aug, [facility] [place] [facility] [address] [id number] [place] [address] Aug, [facility] [place] [facility] [address] [id number] [place] [address] Aug, [facility] [place] [facility] [address] [id number] [place] [address] Aug, [facility] [place] [facility] [address] [id number] [place] [address] Jul, [facility] [place] [facility] [address] [id number] [place] [address] Jul, [facility] [place] [facility] [address] [id number] [place] [address] Jun, [facility] [place] [facility] [address] [id number] [place] [address] Jun, [facility] [place] [facility] [address] [id number] [place] [address] May, [facility] [place] [facility] [address] [id number] [place] [address] May, [facility] [place] [facility] [address] [id number] [place] [address] Jan, [facility] [place] [facility] [address] [id number] [place] [address] Dec, [facility] [facility] [facility] [address] [id number] [place] [address] Jun, [facility] [place] [facility] [address] [id number] [place] [address] May, [facility] [place] [facility] [address] [id number] [place] [address] Nov, [facility] [place] [facility] [address] [id number] [place] [address] September, [facility] [place] [facility] [address] [id number] [place] [address] Aug, [facility] [place] [facility] [address] [id number] [place] [address] Aug, [facility] [place] [facility] [address] [id number], [place] [address] Aug, [facility] [address] [facility] [id number], [place] [address] Aug, [facility] [address] [facility] [id number], [place] [address] Nov, [facility] [address] [facility] [id number], [place] [address] Oct, [facility] [address] [facility] [id number], [place] [address] Jul, [facility] [id number], [place] [address] Feb, [facility] [id number], [place] [address] Feb, [facility] [id number], [place] [address] Apr, [facility] [address], [place] [address] Apr, [facility] [address] [id number], [place] [address] Feb, [facility] [address] [id number], [place] [address] Feb, [facility] [address] [id number], [place] [address] Jul, IMMUNIZATIONS No Known Immunizations SOCIAL HISTORY Never Assessed REASON FOR VISIT Reschedule appt. 02/13/2017 PLAN OF CARE VITAL SIGNS MEDICATIONS Unknown [...]
--- OUTSIDE RECORDS SUMMARY | 2017-09-18 11:19 | XMS REPORT ---
Author Author ANIL KHOURY Organization [facility] Address [address] [place] [address] Care Team Providers Care Test Conductor Name Role Phone KHOURYBOBBINAIL Unavailable PROBLEMS Type Condition ICD9-CM Code [id number] Code Onset Dates Condition Status SNOMED Code Problem ED (erectile dysfunction) N52.9 Active 402453722 Problem Restless legs syndrome G25.81 Active 021418986 Problem Abscess L02.91 Active 131644618 Problem DM neuro manif type II E11.49 Active 78904238 Problem Sinusitis, unspecified chronicity, unspecified location J32.9 Active 38502833 Problem Decubital ulcer L89.90 Active 459848972 Problem COPD (chronic obstructive pulmonary disease) J44.9 Active 47037176 Problem Cough R05 Active 96003242 Problem 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 811477415 Problem GERD (gastroesophageal reflux disease) K21.9 Active 143967865 Problem Diabetes E11.9 Active 90322639 Problem Back pain M54.9 Active 544875705 Problem HTN (hypertension) I10 Active 86434675 Problem Insomnia G47.00 Active 938228828 ALLERGIES Unknown Allergies SOCIAL HISTORY No smoking Hx information available PLAN OF CARE VITAL SIGNS MEDICATIONS Medication Instructions Dosage Frequency Start Date End Date Duration Status Lisinopril-Hydrochlorothiazide 20-25 MG Orally Once a day 1 tablet 24h Apr, 90 days Active Amlodipine Besylate 10 Orally Once a day TAKE 1 TABLET BY MOUTH DAILY 24h 90 Active Metoprolol Succinate ER 50 mg Orally Once a day 1 tablet 24h May, 90 days Active Ranitidine HCl 150 Orally Twice a day TAKE 1 TABLET BY MOUTH TWICE DAILY 12h 90 Active RESULTS No Results PROCEDURES No Known procedures IMMUNIZATIONS No Known Immunizations
--- OUTSIDE RECORDS SUMMARY | 2017-09-18 11:19 | XMS REPORT ---
Author ANIL Ribeiro [facility] eClinicalWorks Address Unknown Phone Unavailable Care Team Providers Care Toy Maker Name Role Phone ANIL KHOURY CP Unavailable [...] Start Date End Date Status Dosage Requip [facility] [address]-84 3 MG Orally Once a day Mar 28, 2015 1 tablet 1 to 3 hours before bedtime Norvasc [facility] [address]-74 10 mg Orally Once a day May 16, 2015 1 tablet Cymbalta [facility] [address]-05 60 mg Orally Once a day May 16, 2015 1 capsule Actos [facility] [address]-48 45 MG Orally Once a day May 09, 2015 1 tablet Metformin HCl [facility] [address]-49 1000 MG Orally Twice a day Apr 24, 2015 1 tablet with meals Lisinopril-Hydrochlorothiazide [facility] [address]-41 20-25 MG Orally Once a day Apr 24, 2015 1 tablet Elavil [facility] 0 75 by oral route Once a day Dec 09, 2012 1-2 tablet by Oral route 1 time per day Omeprazole [facility] [address]-82 40 mg Orally Once a day Jun 20, 2015 1 capsule Depakote [facility] [address]-55 500 MG Orally 3 times a day May 16, 2015 1 tablet Metoprolol Succinate ER [facility] [address]-91 50 mg Orally Once a day Jun 06, 2015 1 tablet Results No Known Results Summary Purpose eClinicalWorks Submission
--- OUTSIDE RECORDS SUMMARY | 2017-09-18 11:19 | XMS REPORT ---
Author ANIL Ribeiro [facility] eClinicalWorks Address Unknown Phone Unavailable Care Team Providers Care Kennel Manager Dog Track Name Role Phone ANIL KHOURY CP Unavailable Allergies No Known Allergies Problems Problem Type Condition Code Onset Dates Condition Status Problem HTN (hypertension) I10 Active Problem Insomnia G47.00 Active Problem Abscess L02.91 Active Problem Restless legs syndrome G25.81 Active Problem COPD (chronic obstructive pulmonary disease) J44.9 Active Problem ED (erectile dysfunction) N52.9 Active Problem Diabetes E11.9 Active Problem GERD (gastroesophageal reflux disease) K21.9 Active Problem Back pain M54.9 Active Medications Medication Code System Code Instructions Start Date End Date Status Dosage Vicoprofen [facility] [address]-26 7.5-200 MG Orally 2 times a day Mar 28, 2015 1 tablet as needed Results No Known Results Summary Purpose eClinicalWorks Submission
--- OUTSIDE RECORDS SUMMARY | 2017-09-18 11:19 | XMS REPORT ---
Author Author ANIL KHOURY Organization [facility] Address [address] [place] [address] Care Team Providers Care Air Route Traffic Controller Name Role Phone KHOURYBOBBIANIL Unavailable PROBLEMS Type Condition ICD9-CM Code MTE08-WU Code Onset Dates Condition Status SNOMED Code Problem ED (erectile dysfunction) N52.9 Active 399212222 Problem Restless legs syndrome G25.81 Active 716800386 Problem Abscess L02.91 Active 338461386 Problem DM neuro manif type II E11.49 Active 96291624 Problem Sinusitis, unspecified chronicity, unspecified location J32.9 Active 34436568 Problem Decubital ulcer L89.90 Active 400104322 Problem COPD (chronic obstructive pulmonary disease) J44.9 Active 74847244 Problem Cough R05 Active 37690133 Problem 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 056185169 Problem GERD (gastroesophageal reflux disease) K21.9 Active 191312230 Problem Diabetes E11.9 Active 97363904 Problem Back pain M54.9 Active 272342725 Problem HTN (hypertension) I10 Active 00268233 Problem Insomnia G47.00 Active 024458243 ALLERGIES No Information SOCIAL HISTORY Never Assessed PLAN OF CARE VITAL SIGNS MEDICATIONS Medication Instructions Dosage Frequency Start Date End Date Duration Status Hydrocodone-Ibuprofen 7.5-200 MG Orally 3 times a day 1 tablet as needed 8h Oct, 28 Active RESULTS No Results PROCEDURES No Known procedures IMMUNIZATIONS No Known Immunizations MEDICAL (GENERAL) HISTORY Type Description Date Medical History hypertension Medical History Type 2 Diabetes Medical History Hep C Medical History Depression Medical History Anxiety Surgical History Right little toe amputation Hospitalization History Psych hospitalizations(numerous) Hospitalization History for surgeries
--- OUTSIDE RECORDS SUMMARY | 2017-09-18 11:19 | XMS REPORT ---
Author Author EMILIANO HAWTHORNE Organization [facility] Address [address] [place] [address] Care Team Providers Care Animal Husbandry Worker Name Role Phone BREANA HAWTHORNEIN Unavailable PROBLEMS Type Condition ICD9-CM Code MJZ93-EB Code Onset Dates Condition Status SNOMED Code Problem ED (erectile dysfunction) N52.9 Active 910404906 Problem Restless legs syndrome G25.81 Active 529646647 Problem Abscess L02.91 Active 708249573 Problem DM neuro manif type II E11.49 Active 94679517 Problem Sinusitis, unspecified chronicity, unspecified location J32.9 Active 70303479 Problem Decubital ulcer L89.90 Active 982306079 Problem COPD (chronic obstructive pulmonary disease) J44.9 Active 59909224 Problem Cough R05 Active 23157161 Problem 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 462121055 Problem GERD (gastroesophageal reflux disease) K21.9 Active 713516152 Problem Diabetes E11.9 Active 23578442 Problem Back pain M54.9 Active 168644153 Problem HTN (hypertension) I10 Active 43192759 Problem Insomnia G47.00 Active 382588272 ALLERGIES Unknown Allergies SOCIAL HISTORY No smoking Hx information available PLAN OF CARE VITAL SIGNS MEDICATIONS Unknown Medications RESULTS No Results PROCEDURES No Known procedures IMMUNIZATIONS No Known Immunizations
--- OUTSIDE RECORDS SUMMARY | 2017-09-18 11:19 | XMS REPORT ---
Author Author ANIL KHOURY Organization [facility] Address [address] [place] [address] Care Team Providers Care Medical Researcher Name Role Phone KHOURYBOBBIANIL Unavailable PROBLEMS Type Condition ICD9-CM Code LLS75-NN Code Onset Dates Condition Status SNOMED Code Problem ED (erectile dysfunction) N52.9 Active 078597934 Problem Restless legs syndrome G25.81 Active 162339057 Problem Abscess L02.91 Active 307908848 Problem DM neuro manif type II E11.49 Active 68564169 Problem Sinusitis, unspecified chronicity, unspecified location J32.9 Active 32174112 Problem Decubital ulcer L89.90 Active 197900756 Problem COPD (chronic obstructive pulmonary disease) J44.9 Active 53440237 Problem Cough R05 Active 09483401 Problem 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 926647375 Problem GERD (gastroesophageal reflux disease) K21.9 Active 869107717 Problem Diabetes E11.9 Active 62027188 Problem Back pain M54.9 Active 006172142 Problem HTN (hypertension) I10 Active 74169851 Problem Insomnia G47.00 Active 347256670 ALLERGIES Unknown Allergies SOCIAL HISTORY No smoking Hx information available PLAN OF CARE VITAL SIGNS MEDICATIONS Medication Instructions Dosage Frequency Start Date End Date Duration Status Ventolin HFA 108 (90 Base) MCG/ACT Inhalation every 4 hrs 2 puffs as needed 4h Active RESULTS No Results PROCEDURES No Known procedures IMMUNIZATIONS No Known Immunizations
--- OUTSIDE RECORDS SUMMARY | 2017-09-18 11:20 | XMS REPORT ---
Author Author ANIL Sanchez [facility] Address [address] [place] [address] Care Team Providers Care Parts Counterman Name Role Phone Daniel ANIL Unavailable PROBLEMS Type Condition ICD9-CM Code NSA97-PN Code Onset Dates Condition Status SNOMED Code Problem HTN (hypertension) I10 Active 89420440 Problem Restless legs syndrome G25.81 Active 625994154 Problem GERD (gastroesophageal reflux disease) K21.9 Active 775624596 Problem ED (erectile dysfunction) N52.9 Active 140806463 Problem PAD (peripheral artery disease) I73.9 Active 182575317 Problem Ulcer of right foot, unspecified ulcer stage L97.519 Active 05533987 Problem 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 313634341 Problem COPD (chronic obstructive pulmonary disease) J44.9 Active 80108079 Problem DM neuro manif type II E11.49 Active 36711973 Problem Sinusitis, unspecified chronicity, unspecified location J32.9 Active 43210351 ALLERGIES No Information ENCOUNTERS Encounter Location Date Diagnosis [place] [facility] [id number] [place] [address] 08595- 4999 Aug, [facility] [id number] [place] [address] 61868- 6384 Jul, [facility] [id number] [place] [address] 11960- 1957 Jul, Back pain M54.9 [facility] [id number] [place] [address] 98642- 2276 Jul, [facility] [id number] [place] [address] 92691- 0361 09 Jul, 2017 DM neuro manif type II E11.49 and Ulcer of right foot, unspecified ulcer stage L97.519 [facility] [id number] [place] [address] 24369- 1933 Jun, [facility] [id number] [place] [address] 64892- 4229 Jun, [facility] [id number] [place] [address] 74299- 3575 May, 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 complication E11.49 ; GERD (gastroesophageal reflux disease) K21.9 and PAD ( peripheral artery disease) I73.9 [facility] [id number] [place] [address] 69382- 3458 May, Decubital ulcer L89.90 ; Diabetes E11.9 and GERD ( gastroesophageal reflux disease) K21.9 [facility] [id number] [place] [address] 91530- 4437 May, [facility] [id number] [place] [address] 99004- 0408 Apr, [facility] [id number] [place] [address] 90143- 1997 Mar, [facility] [id number] [place] [address] 85914- 5713 Mar, [facility] [id number] [place] [address] 45004- 6635 Feb, [facility] [id number] [place] [address] 85228- 0420 Feb, [facility] [id number] [place] [address] 52154- 9895 Jan, [facility] [id number] [place] [address] 04461- 9598 Jan, HTN (hypertension) I10 [facility] [id number] [place] [address] 95188- 2004 Jan, [facility] [id number] [place] [address] 25987- 7008 Dec, Back pain M54.9 [facility] [id number] [place] [address] 12430- 5808 Dec, Back pain M54.9 [facility] [id number] [place] [address] 34586 -2952 Dec, Encounter for immunization Z23 and Puncture wound of right foot, initial encounter S91.331A [facility] [id number] [place] [address] 39712- 8456 Dec, [facility] [id number] [place] [address] 83097- 0321 Nov, [facility] [id number] [place] [address] 46029- 2257 Nov, COPD (chronic obstructive pulmonary disease) J44.9 [facility] [id number] [place] [address] 34485- 9333 Nov, [facility] [id number] [place] [address] 87605- 8686 Oct, [facility] [id number] [place] [address] 62069- 6508 Oct, [facility] [id number] [place] [address] 87494- 5773 September, Onychomycosis B35.1 and DM neuro manif type II E11.49 [facility] [id number] [place] [address] 49220- 2767 September, [facility] [id number] [place] [address] 31365- 0151 Aug, [facility] [id number] [place] [address] 92393- 0154 Jul, Sinusitis, unspecified chronicity, unspecified location J32.9 and Cough R05 [facility] [id number] [place] [address] 74268- 1937 13 Jul, 2016 Back pain M54.9 [facility] [address] [address]- 4801 14 Jun, 2016 Back pain M54.9 [facility] [id number] [place] [address] 72718- 8543 06 Jun, 2016 COPD (chronic obstructive pulmonary disease) J44.9 [facility] [id number] [place] [address] 39614- 0745 May, [facility] [id number] [place] [address] 85413- 6617 May, [facility] [id number] [place] [address] 18587- 1655 May, Back pain M54.9 [facility] [id number] [place] [address] 03390- 9058 16 May, 2016 [facility] [id number] [place] [address] 92108- 9652 May, [facility] [id number] [place] [address] 68478- 4429 May, Diabetes E11.9 [facility] [id number] [place] [address] 75586- 7611 11 May, 2016 Diabetes E11.9 ; GERD [...] hepatitis C screening test Z11.59 [facility] [address] [address]- 1434 May, HTN (hypertension) I10 [facility] [id number] [place] [address] 28689- 9906 Apr, [facility] [address] [facility] [id number] [address]- 8904 Apr, [facility] [address] [facility] [id number] [place] [address] 25316- 9555 Apr, [facility] [id number] [place] [address] 28666- 9449 Apr, [facility] [address] [facility] [id number] [place] [address] 17345- 6234 Apr, [facility] [address] [facility] [id number] [place] [address], [place] [address]- 2868 Mar, [facility] [id number] [place] [address] 57265- 4967 Mar, [facility] [id number] [place] [address] 96399- 2944 Mar, [facility] [id number] [place] [address] 61743- 7966 Mar, [facility] [id number] [place] [address] 73865- 0644 Mar, Dental examination Z01.20 [facility] [id number] [place] [address] 30134- 4791 Feb, [facility] [id number] [place] [address] 47264- 7202 Feb, [facility] [address] [address]- 0445 Feb, Back pain M54.9 [facility] [id number] [place] [address] 86109- 0778 Jan, [facility] [address] [facility] [id number] [address]- 7133 Jan, [facility] [address] [address]- 2618 Dec, Diabetes E11.9 ; GERD (gastroesophageal reflux disease) K21.9 ; ED (erectile dysfunction) N52.9 ; HTN (hypertension) I10 ; Insomnia G47.00 ; COPD (chronic obstructive pulmonary disease) J44.9 ; Neuropathy G62.9 and Bipolar depression F31.30 [facility] [id number] [place] [address] 31104- 6868 Dec, 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 complication E11.49 and Onychomycosis B35.1 [facility] [id number] [place] [address] 63143- 1069 Dec, [facility] [id number] [place] [address] 67505- 4868 Dec, [facility] [id number] [place] [address], [place] [address]- 7421 Dec, [facility] [id number] [place] [address], [place] [address]- 2481 Dec, [facility] [id number] [place] [address] 63506- 2953 Nov, [facility] [id number] [place] [address], [place] [address]- 6321 Nov, [facility] [id number] [place] [address] 28676- 9335 Oct, [facility] [id number] [place] [address], [place] [address]- 4137 Oct, [facility] [id number] [place] [address] 68617- 3046 Oct, Back pain M54.9 [facility] [id number] [place] [address], [place] [address]- 3424 Oct, [facility] [id number] [place] [address], [place] [address]- 6376 Oct, [facility] [id number] [place] [address] 55248- 9226 Oct, [facility] [address] [address]- 8819 Oct, HTN (hypertension) I10 [facility] [id number] [place] [address] 52155- 5359 Oct, Back pain M54.9 [facility] [id number] [place] [address] 74285- 3068 Oct, Chronic pain syndrome G89.4 [facility] [id number] [place] [address] 05499- 8648 September, Back pain M54.9 [place] [id number] [place] [address] 29530- 2333 September, HTN (hypertension) I10 [place] [id number] [place] [address] 94743- 2483 Aug, Porokeratosis Q82.8 ; Onychomycosis B35.1 and 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 complication E11.49 [place] [facility] [id number] [place] [address] 44154- 3420 Aug, GERD (gastroesophageal reflux disease) K21.9 ; Diabetes E11.9 ; HTN (hypertension) I10 ; Insomnia G47.00 ; Restless legs syndrome G25.81 ; COPD (chronic obstructive pulmonary disease) J44.9 ; Back pain M54.9 and Bipolar 1 disorder F31.9 [facility] [address] [address]- 5267 Aug, [facility] [id number] [place] [address] 46892- 9624 Aug, [facility] [id number] [place] [address] 88883- 7873 Aug, [facility] [address] [place] [address] 29259- 3830 Aug, [facility] [id number] [address]- 3926 31 Jul, 2015 [facility] [address] [place] [address] 53442- 3774 31 Jul, 2015 [facility] [id number] [place] [address] 69390- 1874 30 Jul, 2015 [facility] [id number] [place] [address] 61195- 7292 16 Jul, 2015 [facility] [id number] [place] [address] 82267- 4642 15 Jul, 2015 [facility] [id number] [place] [address] 73496- 9639 Jul, [facility] [id number] [place] [address] 97325- 5478 17 Jun, 2015 Decubital ulcer L89.90 ; Diabetes E11.9 ; Back pain M54.9 ; HTN (hypertension) I10 and COPD (chronic obstructive pulmonary disease) J44.9 [facility] [address] [place] [address] 38686- 7656 Jun, [facility] [id number] [place] [address] 51056- 6157 Jun, [facility] [address] [address]- 2578 Jun, [facility] [address] [place] [address] 72847- 6901 Jun, [facility] [address] [place] [address] 29387- 3849 Jun, Diabetes E11.9 ; Insomnia G47.00 ; Decubital ulcer L89.90 ; GERD (gastroesophageal reflux disease) K21.9 ; Back pain M54.9 ; Superficial fungus infection of skin B36.9 and HTN (hypertension) I10 [address] [id number] Jun, 2015 Dental examination Z01.20 [facility] [address] [address]- 6761 May, [facility] [id number] [place] [address] 74440- 4962 May, [facility] [id number] [place] [address] 21397- 5394 May, [facility] [id number] [place] [address] 20363- 5379 May, Diabetes E11.9 ; HTN (hypertension) I10 and Decubital ulcer L89.90 [place] [id number] [place] [address] 38739- 6462 May, HTN (hypertension) I10 ; Decubital ulcer L89.90 and Diabetes E11.9 [place] [id number] [place] [address] 10605- 2200 Apr, Diabetes E11.9 ; GERD (gastroesophageal reflux disease) K21.9 ; Back pain M54.9 ; HTN (hypertension) I10 ; Restless legs syndrome G25.81 and Decubital ulcer L89.90 [place] [id number] [place] [address] 02511- 3387 Apr, [place] [address] [place] [address] 99660- 4503 Apr, Diabetes E11.9 ; HTN (hypertension) I10 ; Restless legs syndrome G25.81 ; GERD (gastroesophageal reflux disease) K21.9 and COPD ( chronic obstructive pulmonary disease) J44.9 [place] [address] [address]- 1541 Mar, [place] [id number] [place] [address] 08080- 6512 Mar, [facility] [address] [place] [address] 58844- 2857 Mar, Diabetes E11.9 ; Abscess L02.91 and Restless legs syndrome G25.81 [place] [id number] [place] [address] 90656- 5825 Mar, [place] [address] 85280- 4976 Feb, GERD (gastroesophageal reflux disease) K21.9 ; Back pain M54.9 ; ED (erectile dysfunction) N52.9 ; Diabetes E11.9 ; HTN (hypertension) I10 and Insomnia G47.00 [place] [id number] [place] [address] 27993- 5076 Feb, [place] [address] 68813- 0463 Feb, [place] [address] 16769- 9762 Jan, [place] [address] 60964- 5348 Jan, Diabetes 250.00 ; Nondependent cannabis abuse, continuous 305.21 ; Cough 786.2 ; Schizoaffective disorder, unspecified 295.70 ; Sciatica 724.3 ; Other, mixed, or unspecified nondependent drug abuse, unspecified 305.90 ; Chronic pain 338.29 ; GERD (gastroesophageal reflux disease) 530.81 and HTN (hypertension) 401.9 [place] [id number] [place] [address] 52696- 8546 Jan, [place] [id number] [place] [address] 48120- 6864 Jan, [place] [id number] [place] [address] 16597- 3016 Jan, Diabetes mellitus without mention of complication, type I [ juvenile type], uncontrolled 250.03 ; Schizoaffective disorder, unspecified 295.70 ; Benign essential hypertension 401.1 ; Chronic pain associated with significant psychosocial dysfunction 338.4 ; Wheezing 786.07 ; Ear ache 388.70 ; Cough 786.2 ; Sciatica 724.3 and Foot pain, bilateral 729.5 [facility] [address] [address]- 2293 Dec, [facility] [address] [place] [address] 96144- 6832 Dec, [facility] [address] [address]- 2128 Dec, [facility] [id number] [place] [address] 21918- 5248 Dec, [facility] [address] [place] [address] 24779- 2541 Dec, [facility] [id number] [place] [address] 17916- 2472 Nov, Elevated liver enzymes 790.5 [facility] [id number] [place] [address] 45906- 5061 Nov, [facility] [address] [place] [address] 60647- 8020 Nov, [facility] [address] [place] [address] 96902- 8897 Nov, [facility] [address] [address]- 9236 Nov, Diabetes mellitus without mention of complication, type I [ juvenile type], uncontrolled 250.03 ; Benign essential hypertension 401.1 and Nondependent cannabis abuse, continuous 305.21 [facility] [address] [address]- 2733 Oct, Cellulitis 682.9 and Benign essential hypertension 401.1 [facility] [address] [address]- 7194 Oct, [facility] [address] [address]- 6474 September, [facility] [address] [address]- 4077 September, [facility] [place] [facility] [address] [id number] [place] [address]- 2931 Aug, [facility] [place] [facility] [address] [id number] [place] [address]- 8708 Aug, [facility] [place] [facility] [address] [id number] [place] [address]- 3573 Aug, [facility] [place] [facility] [address] [id number] [place] [address]- 8233 Aug, [facility] [place] [facility] [address] [id number] [place] [address]- 5686 Jul, [facility] [place] [facility] [address] [id number] [place] [address]- 0352 Jul, [facility] [place] [facility] [address] [facility] [id number] [place] [address]- 6408 Jul, [facility] [place] [facility] [address] [id number] [place] [address]- 8688 Jul, [facility] [place] [facility] [address] [id number] [place] [address]- 1426 Jul, [facility] [place] [facility] [address] [id number] [place] [address]- 6968 Jul, [facility] [place] [facility] [address] [id number] [place] [address]- 1915 Jun, [facility] [place] [facility] [address] [id number] [address]- 3043 Jun, [facility] [place] [facility] [address] [id number] [place] [address]- 4570 Jun, [facility] [place] [facility] [address] [id number] [place] [address]- 0925 Jun, [facility] [place] [facility] [address] [facility] [id number] [place] [address]- 4051 Jun, [facility] [place] [facility] [address] [id number] [place] [address]- 3536 May, [facility] [address] [id number] [place] [address]- 0766 May, [facility] [address] [id number] [place] [address] May, [facility] [address] [id number] [place] [address] May, [facility] [address] [id number] [place] [address] May, [facility] [address] [id number] [place] [address] May, [facility] [address] [id number] [place] [address] May, [facility] [address] [id number] [place] [address] May, [facility] [address] [id number] [place] [address] Apr, [facility] [address] [id number] [place] [address] Apr, [facility] [address] [id number] [place] [address] Apr, [facility] [address] [id number] [place] [address] Apr, [facility] [address] [id number] [place] [address] Mar, [facility] [place] [facility] [address] [id number] [place] [address] Mar, [facility] [place] [facility] [address] [id number] [place] [address] Mar, [facility] [address] [id number] [place] [address] Mar, [facility] [place] [facility] [address] [id number] [place] [address] Feb, [facility] [place] [facility] [address] [id number] [place] [address] Feb, [facility] [place] [facility] [address] [id number] [place] [address] Feb, [facility] [place] [facility] [address] [id number] [place] [address] Feb, [facility] [place] [facility] [address] [id number] [place] [address] Feb, [facility] [place] [facility] [address] [id number] [place] [address] Feb, [facility] [place] [facility] [address] [id number] [place] [address] Jan, [facility] [place] [facility] [address] [id number] [place] [address] Jan, [facility] [place] [facility] [address] [id number] [place] [address] Jan, [facility] [place] [facility] [address] [id number] [place] [address] Jan, [facility] [place] [facility] [address] [id number] [place] [address] Dec, [facility] [place] [facility] [address] [id number] [place] [address] Dec, [facility] [place] [facility] [address] [id number] [place] [address] Dec, [facility] [place] [facility] [address] [id number] [place] [address] Dec, [facility] [place] [facility] [address] [id number] [place] [address] Dec, [facility] [place] [facility] [address] [id number] [place] [address] Dec, [facility] [place] [facility] [address] [id number] [place] [address] Oct, [facility] [place] [facility] [address] [id number] [place] [address] Oct, [facility] [place] [facility] [address] [id number] [place] [address] September, [facility] [place] [facility] [address] [id number] [place] [address] September, [facility] [place] [facility] [address] [id number] [place] [address] September, [facility] [place] [facility] [address] [id number] [place] [address] September, [facility] [place] [facility] [address] [id number] [place] [address] September, [facility] [place] [facility] [address] [id number] [place] [address] September, [facility] [place] [facility] [address] [id number] [place] [address] Aug, [facility] [place] [facility] [address] [id number] [place] [address] Aug, [facility] [place] [facility] [address] [id number] [place] [address] Aug, [facility] [place] [facility] [address] [id number] [place] [address] Aug, [facility] [place] [facility] [address] [id number] [place] [address] Jul, [facility] [place] [facility] [address] [id number] [place] [address] Jul, [facility] [place] [facility] [address] [id number] [place] [address] 24 Jun, 2013 [facility] [place] [facility] [address] [id number] [place] [address] Jun, [facility] [place] [facility] [address] [id number] [place] [address] May, [facility] [place] [facility] [address] [id number] [place] [address] May, [facility] [place] [facility] [address] [id number] [place] [address] Jan, [facility] [place] [facility] [address] [id number] [place] [address] Dec, [facility] [place] [facility] [address] [id number] [place] [address] Jun, [facility] [place] [facility] [address] [id number] [place] [address] May, [facility] [place] [facility] [address] [id number] [place] [address] Nov, [facility] [place] [facility] [address] [id number] [place] [address] September, [facility] [address] [id number] [place] [address] Aug, [facility] [place] [facility] [address] [id number] [place] [address] Aug, [facility] [place] [facility] [address] [id number] [place] [address] Aug, [facility] [place] [facility] [address] [id number] [place] [address] Aug, [facility] [place] [facility] [address] [id number] [place] [address] Nov, [facility] [place] [facility] [address] [id number] [place] [address] Oct, [facility] [place] [facility] [address] [id number] [place] [address] Jul, [facility] [address] [id number] [address] Feb, [facility] [id number] [address] Feb, [facility] [id number] [address] Apr, [facility] [id number] [address] Apr, [facility] [id number] [address] Feb, [facility] [id number] [address] Feb, [facility] [address] [id number] [address] Jul, IMMUNIZATIONS No Known Immunizations SOCIAL HISTORY Never Assessed REASON FOR VISIT Controlled Refill Request PLAN OF CARE VITAL SIGNS MEDICATIONS Medication Instructions Dosage Frequency Start Date End Date Duration Status Hydrocodone-Ibuprofen 7.5-200 MG Orally 3 times a day 1 tablet as needed 8h Dec, 28 Active RESULTS No Results PROCEDURES No Known procedures INSTRUCTIONS MEDICATIONS ADMINISTERED No Known Medications MEDICAL (GENERAL) HISTORY Type Description Date Medical History hypertension Medical History Type 2 Diabetes Medical History Hep C Medical History Depression Medical History Anxiety Surgical History Right little toe amputation Hospitalization History Psych hospitalizations(numerous) Hospitalization History for surgeries
--- OUTSIDE RECORDS SUMMARY | 2017-09-18 11:20 | XMS REPORT ---
Author ANIL Ribeiro [facility] eClinicalWorks Address Unknown Phone Unavailable Care Team Providers Care Technical Sales Support Manager Name Role Phone ANIL KHOURY Unavailable Allergies, [...] L89.90 Active Assessment HTN (hypertension) I10 Active Assessment Diabetes E11.9 Active Medications Medication Code System Code Instructions Start Date End Date Status Dosage Silvadene [facility] [address]-39 1 % Externally Once a day May 09, 2015 1 application to affected area Vicoprofen [facility] [address]-96 7.5-200 MG Orally 2 times a day Mar 28, 2015 1 tablet as needed benztropine [facility] 0 1 mg Jan 03, 2014 take 1 tablet (1 mg) by oral route 3 times per day Viagra [facility] [address]-18 100 MG Orally Once a day Mar 02, 2015 May 31, 2015 1 tablet as needed Cymbalta [facility] [address]-36 60 MG Orally Once a day May 16, 2015 1 capsule [facility] Blood Glucose Meter [facility] 8396-203156 w/Device Once a day Mar 28, 2015 as directed Metformin HCl [facility] [address]-26 1000 MG Orally Twice a day Apr 24, 2015 1 tablet with meals Invega Sustenna [facility] [address]-52 234 mg/1.5 mL Apr 18, 2014 every 3 weeks Vistaril [facility] [address]-73 50 mg Jan 03, 2014 take 1 capsule (50 mg) by oral route 4 times per day Pepcid [facility] [address]-95 40 MG Orally Once a day Mar 02, 2015 1 tablet Elavil [facility] 0 75 Once a day Dec 09, 2012 1-2 tablet by Oral route 1 time per day Depakote [facility] [address]-92 500 MG Orally 3 times a day May 16, 2015 1 tablet Requip [facility] [address]-39 3 MG Orally Once a day Mar 28, 2015 1 tablet 1 to 3 hours before bedtime Actos [facility] [address]-91 45 MG Orally Once a day May 09, 2015 1 tablet Lyrica [facility] [address]-05 150 MG Orally Twice a day 1 capsule Norvasc [facility] [address]-96 10 MG Orally Once a day May 16, 2015 1 tablet Lisinopril-Hydrochlorothiazide [facility] [address]-79 20-25 MG Orally Once a day Apr 24, 2015 1 tablet Test strips [facility] 0 1 Once a day Mar 28, 2015 as directed Procedures Procedure Coding System Code Date Office Visit, Est Pt., Level 4 CPT-4 49933 May 23, 2015 [facility] VISIT ESTABLISHED PATIENT CPT-4 G0467 May 23, 2015 Vital Signs Date/Time: May 23, 2015 Temperature 98.0 F Weight 279.8 lbs Height 70 in BMI 40.14 Index Blood Pressure Diastolic 80 mmHg Blood Pressure Systolic 140 mmHg Cardiac Monitoring Heart Rate 88 bpm Results No Known Results Summary Purpose eClinicalWorks Submission
--- OUTSIDE RECORDS SUMMARY | 2017-09-18 11:20 | XMS REPORT ---
Author ANIL Ribeiro [facility] eClinicalWorks Address Unknown Phone Unavailable Care Team Providers Care Saxophone Teacher Name Role Phone ANIL KHOURY CP Unavailable [...] Start Date End Date Status Dosage Vicoprofen [facility] [address]-95 7.5-200 MG Orally 3 times a day Jun 27, 2015 1 tablet as needed Lyrica [facility] [address]-10 150 MG Orally Twice a day 1 capsule Results No Known Results Summary Purpose eClinicalWorks Submission
--- OUTSIDE RECORDS SUMMARY | 2017-09-18 11:21 | XMS REPORT ---
Author ANIL Ribeiro [facility] eClinicalWorks Address Unknown Phone Unavailable Care Team Providers Care Roll Hand Name Role Phone ANIL KHOURY CP Unavailable Allergies, Adverse Reactions, Alerts Substance Reaction Event Type Latex Info Not Available Drug Allergy Thorazine Info Not Available Drug Allergy Haldol Info Not Available Drug Allergy Problems Problem Type Condition Code Onset Dates Condition Status Assessment Abscess L02.91 Active Problem Insomnia G47.00 Active Assessment Diabetes E11.9 Active Assessment Restless legs syndrome G25.81 Active Problem Restless legs syndrome G25.81 Active Problem GERD (gastroesophageal reflux disease) K21.9 Active Problem Abscess L02.91 Active Problem Diabetes E11.9 Active Problem HTN (hypertension) I10 Active Problem Back pain M54.9 Active Problem ED (erectile dysfunction) N52.9 Active Medications Medication Code System Code Instructions Start Date End Date Status Dosage Test strips NDC 0 1 Once a day Mar 28, 2015 as directed Sulfamethoxazole-TMP DS [facility] [address]-24 800-160 MG Orally 2 times a day Mar 28, 2015 Apr 07, [address] [facility] [address]-27 100 MG Orally Once a day Mar 02, 2015 May 31, 2015 1 tablet as needed Elavil [place] 0 75 Once a day Dec 09, 2012 1-2 tablet by Oral route 1 time per day Lyrica [facility] [address]-51 150 MG Twice a day May 23, 2014 take 1 capsule (150 mg) by oral route 2 times per day Diagnosis codes (729.1) (356.9) Requip [facility] [address]-88 3 MG Orally Once a day Mar 28, 2015 1 tablet 1 to 3 hours before bedtime Vicoprofen [facility] [address]-51 7.5-200 MG Orally 2 times a day Mar 28, 2015 1 tablet as needed Pepcid [facility] [address]-66 20 MG May 31, 2014 1 tablet by Oral route 2 times per day Lisinopril-Hydrochlorothiazide [facility] [address]-38 10-12.5 MG Orally 2 times a day Apr 18, 2014 take 0.5 tablet in a.m. and 0.5 tablet in the p.m. Norvasc [facility] [address]-36 10 MG Orally Once a day October 27, 2014 1 [address] ProAir HFA [facility] [address]-00 108 (90 Base) MCG/ACT Inhalation every 4 hrs NEEDED ONLY Jan 09, 2015 2 puffs NEEDED Invega Sustenna [facility] [address]-74 234 mg/1.5 mL Apr 18, 2014 every [address] [facility] [address]-89 50 mg Jan 03, 2014 take 1 capsule (50 mg) by oral route 4 times per day [facility] Blood Glucose Meter [facility] 8396-005860 w/Device Once a day Mar 28, 2015 as directed benztropine [facility] 0 1 mg Jan 03, 2014 take 1 tablet (1 mg) by oral route 3 times per day Cymbalta [facility] [address]-23 60 mg Jan 03, 2014 take 1 capsule (60 mg) by oral route once daily Pepcid [facility] [address]-25 40 MG Orally Once a day Mar 02, 2015 1 tablet Metformin HCl [facility] [address]-24 500 MG Orally Twice a day October 04, 2014 1 tablet with meals Depakote [facility] [address]-49 500 mg Jan 03, 2014 take 1 tablet (500 mg) by oral route 3 times per day Procedures Procedure Coding System Code Date Office Visit, Est Pt., Level 4 CPT-4 53952 Mar 28, 2015 [facility] VISIT ESTABLISHED PATIENT CPT-4 G0467 Mar 28, 2015 Vital Signs Date/Time: Mar 28, 2015 Temperature 98.4 F Weight 264.3 lbs Height 70 in BMI 37.92 Index Blood Pressure Diastolic 94 mmHg Blood Pressure Systolic 152 mmHg Cardiac Monitoring Heart Rate 132 bpm Results No Known Results Summary Purpose eClinicalWorks Submission
--- OUTSIDE RECORDS SUMMARY | 2017-09-18 11:21 | XMS REPORT ---
Author Author ZEYNEP Keene [facility] Address Unknown Care Team Providers Care Clerical Clerk Name Role Phone ZEYNEP Keene Unavailable PROBLEMS Type Condition ICD9-CM Code [id number] Code Onset Dates Condition Status SNOMED Code Problem ED (erectile dysfunction) N52.9 Active 359709288 Problem Restless legs syndrome G25.81 Active 131021901 Problem Abscess L02.91 Active 844799207 Problem DM neuro manif type II E11.49 Active 23872665 Problem Sinusitis, unspecified chronicity, unspecified location J32.9 Active 39533417 Problem Decubital ulcer L89.90 Active 016342033 Problem COPD (chronic obstructive pulmonary disease) J44.9 Active 09475661 Problem Cough R05 Active 13636535 Problem 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 763413810 Problem GERD (gastroesophageal reflux disease) K21.9 Active 556194714 Problem Diabetes E11.9 Active 01635283 Problem Back pain M54.9 Active 560656133 Problem HTN (hypertension) I10 Active 67721517 Problem Insomnia G47.00 Active 637026759 ALLERGIES Unknown Allergies SOCIAL HISTORY No smoking Hx information available PLAN OF CARE Activity Details Follow Up prn Reason:multi te VITAL SIGNS MEDICATIONS Unknown Medications RESULTS No Results PROCEDURES Procedure Date Ordered Related Diagnosis Body Site COMP ORAL EVALUATION - NEW/EST PT Apr 25, 2016 PANORAMIC FILM SEE ALSO CODE 46772 Mar 12, 2016 IMMUNIZATIONS No Known Immunizations
--- OUTSIDE RECORDS SUMMARY | 2017-09-18 11:21 | XMS REPORT ---
Author ANIL Ribeiro Organization eClinicalWorks Address Unknown Phone Unavailable Care Team Providers Care Industrial Gas Servicer Name Role Phone ANIL KHOURY CP Unavailable [...] Date End Date Status Dosage Ventolin HFA [facility] [address]-96 108 (90 Base) MCG/ACT Inhalation every 4 hrs Jan 02, 2016 2 puffs as needed Results No Known Results Summary Purpose eClinicalWorks Submission
--- OUTSIDE RECORDS SUMMARY | 2017-09-18 11:21 | XMS REPORT ---
Author ANIL Ribeiro Organization eClinicalWorks Address Unknown Phone Unavailable Care Team Providers Care Wheel Press Clerk Name Role Phone ANIL KHOURY CP Unavailable [...]
--- OUTSIDE RECORDS SUMMARY | 2017-09-18 11:21 | XMS REPORT ---
Author Author ANIL KHOURY Organization [facility] Address [address] [place] [address] Care Team Providers Care Gas Plant Specialist Name Role Phone ANIL KHOURY Unavailable PROBLEMS Type Condition ICD9-CM Code [id number] Code Onset Dates Condition Status SNOMED Code Problem GERD (gastroesophageal reflux disease) K21.9 Active 184616050 Problem Abscess L02.91 Active 097288673 Problem Restless legs syndrome G25.81 Active 945526282 Problem DM neuro manif type II E11.49 Active 69865630 Problem Sinusitis, unspecified chronicity, unspecified location J32.9 Active 97938648 Problem Decubital ulcer L89.90 Active 335506534 Problem COPD (chronic obstructive pulmonary disease) J44.9 Active 29993290 Problem Cough R05 Active 32601130 Problem 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
--- OUTSIDE RECORDS SUMMARY | 2017-09-18 11:21 | XMS REPORT ---
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
--- OUTSIDE RECORDS SUMMARY | 2017-09-18 11:21 | XMS REPORT ---
Author ANIL Ribeiro [facility] eClinicalWorks Address Unknown Phone Unavailable Care Team Providers Care Chipper Machine Operator Name Role Phone ANIL KHOURY CP Unavailable Allergies, Adverse Reactions, Alerts Substance Reaction Event Type Latex Info Not Available Drug Allergy Thorazine Info Not Available Drug Allergy Haldol Info Not Available Drug Allergy Problems Problem Type Condition Code Onset Dates Condition Status Problem HTN (hypertension) I10 Active Problem ED (erectile dysfunction) N52.9 Active Problem Diabetes E11.9 Active Problem Decubital ulcer L89.90 Active Problem COPD (chronic obstructive pulmonary disease) J44.9 Active Problem 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 Problem GERD (gastroesophageal reflux disease) K21.9 Active Problem Back pain M54.9 Active Problem Abscess L02.91 Active Problem Restless legs syndrome G25.81 Active Assessment Neuropathy G62.9 Active Assessment COPD (chronic obstructive pulmonary disease) J44.9 Active Assessment Bipolar depression F31.30 Active Assessment ED (erectile dysfunction) N52.9 Active Assessment GERD (gastroesophageal reflux disease) K21.9 Active Assessment Insomnia G47.00 Active Assessment Diabetes E11.9 Active Assessment HTN (hypertension) I10 Active Problem Insomnia G47.00 Active Medications Medication Code System Code Instructions Start Date End Date Status Dosage Elavil NDC 0 75 by oral route Once a day Dec 09, 2012 1-2 tablet by Oral route 1 time per day Cymbalta [facility] [address]-92 60 mg Orally Once a day May 16, 2015 1 capsule [facility] Blood Glucose Meter [facility] 8396-983338 w/Device Once a day Mar 28, 2015 as directed Test strips NDC 0 1 Once a day Mar 28, 2015 as directed Pioglitazone HCl [facility] 92999642843 45 TAKE ONE TABLET BY MOUTH ONCE A DAY benztropine NDC 0 1 mg Jan 03, 2014 take 1 tablet (1 mg) by oral route 3 times per day Omeprazole [facility] [address]-96 40 mg Orally Once a day Jun 20, 2015 1 capsule Seven Contour Next Test [facility] 21769193679 0 USE ONCE DAILY FOR BLOOD SUGAR TESTING Ventolin HFA [facility] [address]-40 108 (90 Base) MCG/ACT Inhalation every 4 hrs Jan 01, 2016 2 puffs as needed Ventolin HFA [facility] [address]-17 108 (90 Base) MCG/ACT Inhalation every 4 hrs Jan 02, 2016 2 puffs as needed Depakote [facility] [address]-41 500 MG Orally 3 times a day May 16, 2015 1 tablet Silvadene [facility] [address]-46 1 % Externally Once a day May 09, 2015 1 application to affected area Lisinopril-Hydrochlorothiazide [facility] [address]-17 20-25 MG Orally Once a day Apr 24, 2015 1 tablet Actos [facility] [address]-49 45 MG Orally Once a day May 09, 2015 1 tablet Metformin HCl [facility] [address]-45 1000 MG Orally Twice a day Apr 24, 2015 1 tablet with meals Lyrica [facility] [address]-91 150 MG Orally Twice a day 1 capsule Ranitidine HCl [facility] [address]-88 150 MG Orally Twice a day August 09, 2015 1 capsule Ketoconazole [facility] [address]-31 2 % Externally Once a day Jun 13, 2015 1 application to affected area Norvasc [facility] [address]-32 10 mg Orally Once a day May 16, 2015 1 tablet Metoprolol Succinate ER [facility] [address]-24 50 mg Orally Once a day Jun 06, 2015 1 tablet Vicoprofen [facility] [address]-46 7.5-200 MG Orally 3 times a day Jun 27, 2015 1 tablet as needed Invega Sustenna [facility] [address]-54 234 mg/1.5 mL Apr 18, 2014 every 3 weeks Requip [facility] [address]-39 3 MG Orally Once a day Mar 28, 2015 1 tablet 1 to 3 hours before bedtime Procedures Procedure Coding System Code Date [facility] VISIT ESTABLISHED PATIENT CPT-4 G0467 Jan 04, 2016 Office Visit, Est Pt., Level 4 CPT-4 23691 Jan 04, 2016 GLYCATED HEMOGLOBIN TEST CPT-4 03967 Jan 04, 2016 Vital Signs Date/Time: Jan 04, 2016 Cardiac Monitoring Heart Rate 80 bpm Weight 265 lbs Height 70 in BMI 38.02 Index Blood Pressure Diastolic 90 mmHg Blood Pressure Systolic 122 mmHg Results No Known Results Summary Purpose eClinicalWorks Submission
--- OUTSIDE RECORDS SUMMARY | 2017-09-18 11:23 | XMS REPORT | Continuity of Care Document ---
Author Author [facility] Address Unknown Phone Unavailable Allergies Active Description Code Type Severity Reaction Onset Reported/Identified Relationship to Patient Clinical Status Yes FLUORESCEIN UNKNOWN UNKNOWN Yes HALDOL UNKNOWN UNKNOWN Yes LATEX, NATURAL RUBBER UNKNOWN UNKNOWN Yes Haldol Drug Allergy N/A N/A 07/22/2008 Yes Haldol Drug Allergy 07/22/2008 Yes latex [id number] Drug Allergy Moderate N/A 08/12/2010 Yes chlorpromazine HCl [id number] Drug Allergy Mild N/A 08/12/2010 Yes haloperidol [id number] Drug Allergy Mild N/A 08/12/2010 Yes Haloperidol Lactate [id number] Drug Allergy Mild N/A 08/12/2010 Yes Thorazine Drug Allergy N/A N/A 10/28/2010 Yes Thorazine Drug Allergy 10/28/2010 Medications Medication Packaging Start Date Stop Date Route Dosage Sig KETOROLAC VIAL INJ 30 MG/CC (TORADOL VIAL) MG 12/05/2016 12/05/2016 ONCE&0330 DIVALPROEX ER TAB 500 MG (DEPAKOTE ER) Dose(s ) 08/28/2017 09/04/2017 TID&0800,1400,2000 BENZTROPINE TAB 1 MG (COGENTIN) Dose(s) 08/28/2017 09/04/2017 TID&0800,1400,2000 LACTATED RINGERS 500CC IV BAG INJ ml 08/28/2017 08/28/2017 ONCE&1547 KETOROLAC VIAL INJ 30 MG/CC (TORADOL VIAL) MG 08/28/2017 08/28/2017 ONCE&1551 HYDROXYZINE TAB 25 MG (ATARAX) Dose(s) 08/28/2017 08/31/2017 QID&0800,1200,1700,2200 KETOROLAC VIAL INJ 15 MG/CC (TORADOL VIAL) MG 08/28/2017 08/29/2017 PRN Q6H ALBUTEROL INHALER MDI 8 GM (VENTOLIN HFA) Dose (s) 08/28/2017 09/07/2017 PRN QID MORPHINE SYRINGE INJ 2 MG/CC MG 08/28/2017 PRN ONCE NORMAL SALINE 250CC IV BAG INJ 0.9 % (NS 250CC IV BAG) ml 08/28/2017 09/03/2017 EVERY 24 Hour&1902 Hydromorphone inj 2mg/cc vial (Dilaudid) MG 08/28/2017 08/28/2017 PRN ONCE NICOTINE PATCH PAT 21 MG (NICODERM) MG 08/28/2017 08/28/2017 ONCE&1925 RANITIDINE TAB 150 MG (ZANTAC) Dose(s) 08/28/2017 09/04/2017 BID&0800,2000 METFORMIN TAB 500 MG (GLUCOPHAGE) Dose(s) 08/28/2017 09/04/2017 BID&0800,2000 CEFTRIAXONE PREMIX IV BAG IV 1 GM/50CC (ROCEPHIN PREMIX IV BAG) GM 08/28/2017 09/04/2017 BID&0800,2000 PREGABALIN CAP 75 MG (LYRICA) Dose(s) 08/28/2017 09/04/2017 BID&0800,2000 PANTOPAZOLE VIAL INJ 40 MG (PROTONIX IV) MG 08/28/2017 09/07/2017 BID&0800,2000 ROPINIROLE TAB 1 MG (REQUIP) Dose(s) 08/28/2017 09/03/2017 QHS&2100 HYDROCODONE/APAP 7.5/325 TAB (ALFREDO-TAB 7.5/325) TAB 08/29/2017 09/08/2017 PRN Q6H PHENAZOPYRIDINE TAB 100 MG (PYRIDIUM) MG 08/29/2017 09/04/2017 TID&0800,1400,2000 KETOROLAC VIAL INJ 30 MG/CC (TORADOL VIAL) MG 08/29/2017 08/30/2017 PRN EVERY 6 Hour METOPROLOL-XL TAB 50 MG (TOPROL XL) Dose(s) 08/29/2017 09/04/2017 Daily&0900 AMLODIPINE TAB 10 MG (NORVASC) Dose(s) 08/29/2017 09/04/2017 Daily&0900 DULOXETINE CAP 30 MG (CYMBALTA) Dose(s) 08/29/2017 09/04/2017 Daily&0900 AMITRIPTYLINE TAB 25 MG (ELAVIL) Dose(s) 08/29/2017 09/04/2017 Daily&0900 PALIPERIDONE TAB 9 MG (INVEGA) MG 08/29/2017 08/29/2017 ONCE&0900 Hydrochlorothiazide oral tablet 25mg (HCTZ 25mg) Dose(s) 08/29/2017 09/04/2017 Daily&0900 NICOTINE PATCH PAT 21 MG (NICODERM) MG 08/29/2017 09/04/2017 Daily&0900 NORMAL SALINE 250CC IV BAG INJ 0.9 % (NS 250CC IV BAG) ml 08/29/2017 09/01/2017 Q12H&0900,2100 CEFEPIME PREMIX BAG IV 1 GM/50CC (MAXIPIME PREMIX BAG) GM 08/29/2017 09/04/2017 BID&0800,2000 LISINOPRIL TAB 10 MG (ZESTRIL) Dose(s) 08/29/2017 09/04/2017 Daily&0900 PIOGLITAZONE TAB 15 MG (ACTOS) Dose(s) 08/29/2017 09/04/2017 Daily&0900 FUROSEMIDE VIAL INJ 20 MG (LASIX VIAL) MG 08/29/2017 08/29/2017 ONCE&1710 NORMAL SALINE 1000CC IV BAG INJ 0.9 % (NS 1000CC IV BAG) ml 08/29/2017 08/29/2017 ONCE&1710 GUAIFENESIN TAB 600 MG (MUCINEX) MG 08/29/2017 09/05/2017 Q12H&0600,1800 TAMSULOSIN CAP 0.4 MG (FLOMAX) MG 08/29/2017 09/04/2017 QAM&1800 CEFEPIME PREMIX BAG IV 1 GM/50CC (MAXIPIME PREMIX BAG) GM 08/29/2017 09/05/2017 BID&0800,2000 LACTULOSE SYRUP LIQ 20 GM/30CC (CHRONULAC SYRUP) GM 08/29/2017 09/08/2017 BID&0800,2000 FUROSEMIDE VIAL INJ 20 MG (LASIX VIAL) MG 08/30/2017 08/30/2017 ONCE&0745 POLY/BACI/NEOMY 1APP OINT (NEOSPORIN) cristy 08/30/2017 08/30/2017 ONCE&0750 NICOTINE PATCH PAT 21 MG (NICODERM) MG 09/14/2017 09/20/2017 Daily&0900 KETOROLAC VIAL INJ 60 MG/2CC (TORADOL VIAL) MG 09/14/2017 09/14/2017 ONCE&1342 DIVALPROEX ER TAB 500 MG (DEPAKOTE ER) Dose(s ) 09/14/2017 09/21/2017 TID&0800,1400,2000 BENZTROPINE TAB 1 MG (COGENTIN) Dose(s) 09/14/2017 09/21/2017 TID&0800,1400,2000 NORMAL SALINE 1000CC IV BAG INJ 0.9 % (NS 1000CC IV BAG) ml 09/14/2017 09/29/2017 CONTINUOUSEVERY 0 Hour HYDROXYZINE TAB 25 MG (ATARAX) Dose(s) 09/14/2017 09/17/2017 PRN QID Piperacillin-tazobactam 3.375 Gm IV recon soln (Zosyn) GM 09/14/2017 09/21/2017 Q6H&0500,1100,1700,2300 KETOROLAC VIAL INJ 15 MG/CC (TORADOL VIAL) MG 09/14/2017 09/19/2017 PRN Q6H NORMAL SALINE 250CC IV BAG INJ 0.9 % (NS 250CC IV BAG) ml 09/14/2017 09/20/2017 Daily&1800 Piperacillin-tazobactam 3.375 Gm IV recon soln (Zosyn) GM 09/14/2017 09/21/2017 Q6H&0000,0600,1200,1800 RANITIDINE TAB 150 MG (ZANTAC) Dose(s) 09/14/2017 09/21/2017 BID&0800,2000 NORMAL SALINE 250CC IV BAG INJ 0.9 % (NS 250CC IV BAG) ml 09/14/2017 09/20/2017 Daily&2000 PREGABALIN CAP 75 MG (LYRICA) Dose(s) 09/14/2017 09/21/2017 BID&0800,2000 ROPINIROLE TAB 1 MG (REQUIP) Dose(s) 09/14/2017 09/20/2017 QHS&2100 AMITRIPTYLINE TAB 25 MG (ELAVIL) Dose(s) 09/14/2017 09/20/2017 QHS&2100 TRAMADOL TAB 50 MG (ULTRAM) MG 11/201709/24/2017 PRN Q8H NORMAL SALINE 250CC IV BAG INJ 0.9 % (NS 250CC IV BAG) ml 09/15/2017 09/21/2017 BID&0800,2000 METOPROLOL-XL TAB 50 MG (TOPROL XL) Dose(s) 09/15/2017 09/21/2017 Daily&0900 DULOXETINE CAP 30 MG (CYMBALTA) Dose(s) 09/15/2017 09/21/2017 Daily&0900 Hydrochlorothiazide oral tablet 25mg (HCTZ 25mg) Dose(s) 09/15/2017 09/21/2017 Daily&0900 LISINOPRIL TAB 10 MG (ZESTRIL) Dose(s) 09/15/2017 09/21/2017 Daily&0900 HYDROCODONE/APAP 7.5/325 TAB (ALFREDO-TAB 7.5/325) TAB 09/15/2017 09/18/2017 PRN TID CHLORASEPTIC/HALLS ARLEN/DROP (SORETHROAT ARLEN/COUGH DROP) LOZENGE 09/17/2017 09/27/2017 PRN Q2H MUPIROCIN OINT 2 % (BACTROBAN) cristy 09/17/2017 09/17/2017 TID&2000 LORAZEPAM TAB 0.5 MG (ATIVAN) MG 09/17/2017 PRN ONCE HYDROXYZINE TAB 25 MG (ATARAX) Dose(s) 09/17/2017 09/20/2017 PRN QID AMOX-CLAV 875/125 TAB 875 MG-125MG (AUGMENTIN) TAB 09/17/2017 09/27/2017 BID&0800,2000 LORAZEPAM TAB 0.5 MG (ATIVAN) MG 09/24/2017 PRN Q6H OLANZAPINE TAB 5 MG (ZYPREXA) MG 09/23/2017 QHS&2100 MUPIROCIN OINT 2 % (BACTROBAN) cristy 09/18/2017 09/27/2017 TID&0800,1400,2000 Problems Date Dx Coded Attending Type Code Diagnosis Diagnosed By 12/20/2007 YVES BLEVINS MD 250.02 DIABETES II UNCONTROLLED 12/20/2007 YVES BLEVINS MD 338.4 PAIN CHRONIC SYNDROME 12/20/2007 ASHLYN CEDILLO APRN, MELIZA N 250.02 DIABETES II UNCONTROLLED 12/20/2007 ASHLYN CEDILLO APRTeo MELIZA N 338.4 PAIN CHRONIC SYNDROME 12/20/2007 YVES BLEVINS MD 250.02 DIABETES II UNCONTROLLED 12/20/2007 YVES BLEVINS MD 338.4 PAIN CHRONIC SYNDROME 12/20/2007 ASHLYN CEDILLO APRTeo MELIZA N 250.02 DIABETES II UNCONTROLLED 12/20/2007 ASHLYN CEDILLO APRTeo MELIZA N 338.4 PAIN CHRONIC SYNDROME 12/20/2007 ASHLYN CEDILLO APRN, MELIZA N 250.02 DIABETES II UNCONTROLLED 12/20/2007 ASHLYN CEDILLO APRTeo MELIZA N 338.4 PAIN CHRONIC SYNDROME 12/20/2007 BURROUGHS DO RACIEL K 250.02 DIABETES II UNCONTROLLED 12/20/2007 BURROUGHS DO, RACIEL K 338.4 PAIN CHRONIC SYNDROME 12/20/2007 ASHLYN CEDILLO APRTeo MELIZA N 250.02 DIABETES II UNCONTROLLED 12/20/2007 ASHLYN CEDILLO APRTeo MELIZA N 338.4 PAIN CHRONIC SYNDROME 12/20/2007 ASHLYN CEDILLO APRN, MELIZA N 250.02 DIABETES II UNCONTROLLED 12/20/2007 ASHLYN CEDILLO APRN, MELIZA N 338.4 PAIN CHRONIC SYNDROME 12/20/2007 ASHLYN CEDILLO APRTeo MELIZA N 250.02 DIABETES II UNCONTROLLED 12/20/2007 ASHLYN CEDILLO APRN, MELIZA N 338.4 PAIN CHRONIC SYNDROME 12/20/2007 ASHLYN CEDILLO APRN, MELIZA N 250.02 DIABETES II UNCONTROLLED 12/20/2007 ASHLYN CEDILLO APRTeo MELIZA N 338.4 PAIN CHRONIC SYNDROME 12/20/2007 BURROUGHS DO, RACIEL K 250.02 DIABETES II UNCONTROLLED 12/20/2007 BURROUGHS DO, RACIEL K 338.4 PAIN CHRONIC SYNDROME 12/20/2007 BURROUGHS DO, RACIEL K 250.02 DIABETES II UNCONTROLLED 12/20/2007 BURROUGHS DO, RACIEL K 338.4 PAIN CHRONIC SYNDROME 12/29/2007 YVES BLEVINS MD 250.00 DIABETES MELLITUS 12/29/2007 GOLDBERG NGUYEN MELIZA FELIX N 250.00 DIABETES MELLITUS 12/29/2007 YVES BLEVINS MD 250.00 DIABETES MELLITUS 12/29/2007 GOLDBERG NGUYEN MELIZA FELIX N 250.00 DIABETES MELLITUS 12/29/2007 ASHLYN CEDILLO APRN, MELIZA N 250.00 DIABETES MELLITUS 12/29/2007 BURROUGHS DO, RACIEL K 250.00 DIABETES MELLITUS 12/29/2007 ASHLYN CEDILLO APRN, MELIZA N 250.00 DIABETES MELLITUS 12/29/2007 ASHLYN CEDILLO APRN, MELIZA N 250.00 DIABETES MELLITUS 12/29/2007 ASHLYN CEDILLO APRN, MELIZA N 250.00 DIABETES MELLITUS 12/29/2007 ASHLYN CEDILLO APRN, MELIZA N 250.00 DIABETES MELLITUS 12/29/2007 BURROUGHS DO, RACIEL K 250.00 DIABETES MELLITUS 12/29/2007 BURROUGHS DO, RACEIL K 250.00 DIABETES MELLITUS 10/16/2008 YEVS BLEVINS MD 250.60 DIABETES MELLITUS DIABETIC PERIPHERAL NEUROPATHY TYPE II 10/16/2008 ASHLYN CEDILLO APRMELIZA Bruce N 250.60 DIABETES MELLITUS DIABETIC PERIPHERAL NEUROPATHY TYPE II 10/16/2008 YVES BLEVINS MD 250.60 DIABETES MELLITUS DIABETIC PERIPHERAL NEUROPATHY TYPE II 10/16/2008 ASHLYN CEDILLO APRN, MELIZA N 250.60 DIABETES MELLITUS DIABETIC PERIPHERAL NEUROPATHY TYPE II 10/16/2008 ASHLYN CEDILLO APRN, MELIZA N 250.60 DIABETES MELLITUS DIABETIC PERIPHERAL NEUROPATHY TYPE II 10/16/2008 BURROUGHS DO, RACIEL K 250.60 DIABETES MELLITUS DIABETIC PERIPHERAL NEUROPATHY TYPE II 10/16/2008 ASHLYN CEDILLO APRN, MELIZA N 250.60 DIABETES MELLITUS DIABETIC PERIPHERAL NEUROPATHY TYPE II 10/16/2008 ASHLYN CEDILLO APRN, MELIZA N 250.60 DIABETES MELLITUS DIABETIC PERIPHERAL NEUROPATHY TYPE II 10/16/2008 ASHLYN CEDILLO APRN, MELIZA N 250.60 DIABETES MELLITUS DIABETIC PERIPHERAL NEUROPATHY TYPE II 10/16/2008 GOLDBERGMARCELLO CEDILLO APRN, MELIZA N 250.60 DIABETES MELLITUS DIABETIC PERIPHERAL NEUROPATHY TYPE II 10/16/2008 BURROUGHS DO, RACIEL K 250.60 DIABETES MELLITUS DIABETIC PERIPHERAL NEUROPATHY TYPE II 10/16/2008 BURROUGHS DO, RACIEL K 250.60 DIABETES MELLITUS DIABETIC PERIPHERAL NEUROPATHY TYPE II 10/31/2008 YVES BLEVINS MD 250.6 NEUROPATHY DIABETIC 10/31/2008 GOLDBERG LAKSHMIANGELLA FELIX, MELIZA N 250.6 NEUROPATHY DIABETIC 10/31/2008 YVES BLEVINS MD 250.6 NEUROPATHY DIABETIC 10/31/2008 GOLDBERGMARCELLO CEDILLO MELIZA FELIX N 250.6 NEUROPATHY DIABETIC 10/31/2008 GOLDBERG CASHERO [employer]OFIT INSTALLER, MELIZA N 250.6 NEUROPATHY DIABETIC 10/31/2008 BURROUGHS DO, RACIEL K 250.6 NEUROPATHY DIABETIC 10/31/2008 GOLDBERG CASHERO [employer]IT INSTALLER, MELIZA N 250.6 NEUROPATHY DIABETIC 10/31/2008 GOLDBERG CASHERO D[employer] RETROFIT INSTALLER, MELIZA N 250.6 NEUROPATHY DIABETIC 10/31/2008 GOLDBERG CASHERO D[employer] RETROFIT INSTALLER, MELIZA N 250.6 NEUROPATHY DIABETIC 10/31/2008 GOLDBERG LAKSHMIERO DIESEL RETROFIT INSTALLER, MELIZA N 250.6 NEUROPATHY DIABETIC 10/31/2008 BURROUGHS DO, RACIEL K 250.6 NEUROPATHY DIABETIC 10/31/2008 BURROUGSH DO, RACIEL K 250.6 NEUROPATHY DIABETIC 01/12/2009 YVES BLEVINS MD 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 01/12/2009 ASHLYN CEDILLO APRN, MELIZA N 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 01/12/2009 YVES BLEVINS MD 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 01/12/2009 ASHLYN CEDILLO ELVIRA, MELIZA N 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 01/12/2009 GOLDBERG LAKSHMIERO DIESEL RETROFIT INSTALLER, MELIZA N 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 01/12/2009 BURROUGHS DO, RACIEL K 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 01/12/2009 ASHLYN MARTINSERO DIESEL RETROFIT INSTALLER, MELIZA N 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 01/12/2009 ASHLYN MARTINSERO DIESEL RETROFIT INSTALLER, MELIZA N 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 01/12/2009 GOLDBERG CASHERO DIESEL RETROFIT INSTALLER, MELIZA N 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 01/12/2009 GOLDBERG LAKSHMIERO DIESEL RETROFIT INSTALLER, MELIZA N 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 01/12/2009 BURROUGHS DO, RACIEL K 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 01/12/2009 BURROUGHS DO, RACIEL K 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 04/13/2009 YVES BLEVINS MD 309.0 ADJUSTMENT DISORDER WITH DEPRESSED MOOD 04/13/2009 YVES BLEVINS MD 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 04/13/2009 MELIZA THORNTON APRN N 309.0 ADJUSTMENT DISORDER WITH DEPRESSED MOOD 04/13/2009 MELIZA THORNTON APRN N 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 04/13/2009 YVES BLEVINS MD 309.0 ADJUSTMENT DISORDER WITH DEPRESSED MOOD 04/13/2009 YVES BLEVINS MD 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 04/13/2009 GOLDBERG CASHANGELLA [employer] RETROFIT INSTALLER, MELIZA N 309.0 ADJUSTMENT DISORDER WITH DEPRESSED MOOD 04/13/2009 GOLDBERG CASHERO [employer] RETROFIT INSTALLER, MELIZA N 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 04/13/2009 GOLDBERG CASHERO D[employer] RETROFIT INSTALLER, MELIZA N 309.0 ADJUSTMENT DISORDER WITH DEPRESSED MOOD 04/13/2009 GOLDBERG CASHERO [employer]IT INSTALLER, MELIZA N 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 04/13/2009 BURROUGHS DO, RACIEL K 309.0 ADJUSTMENT DISORDER WITH DEPRESSED MOOD 04/13/2009 BURROUGHS DO, RACIEL K 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 04/13/2009 GOLDBERG CASHERO [employer]IT INSTALLER, MELIZA N 309.0 ADJUSTMENT DISORDER WITH DEPRESSED MOOD 04/13/2009 GOLDBERG CASHERO D[employer] RETROFIT INSTALLER, MELIZA N 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 04/13/2009 GOLDBERG CASHERO D[employer] RETR[employer]IT INSTALLER, MELIZA N 309.0 ADJUSTMENT DISORDER WITH DEPRESSED MOOD 04/13/2009 GOLDBERG CASHERO D[employer] RETROFIT INSTALLER, MELIZA N 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 04/13/2009 GOLDBERG CASHERO D[employer] RETROFIT INSTALLER, MELIZA N 309.0 ADJUSTMENT DISORDER WITH DEPRESSED MOOD 04/13/2009 GOLDBERG CASHERO D[employer] RETROFIT INSTALLER, MELIZA N 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 04/13/2009 GOLDBERG CASHERO DIES[employer] RETROFIT INSTALLER, MELIZA N 309.0 ADJUSTMENT DISORDER WITH DEPRESSED MOOD 04/13/2009 GOLDBERG CASHERO D[employer] RETROFIT INSTALLER, MELIZA N 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 04/13/2009 BURROUGHS DO, RACIEL K 309.0 ADJUSTMENT DISORDER WITH DEPRESSED MOOD 04/13/2009 BURROUGHS DO, RACIEL K 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 04/13/2009 BURROUGHS DO, RACIEL K 309.0 ADJUSTMENT DISORDER WITH DEPRESSED MOOD 04/13/2009 BURROUGHS DO, RACIEL K 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 01/07/2010 YVES BLEVINS MD 535.50 GASTRITIS UNSPEC 01/07/2010 GOLDBERG CASHERO [employer] INSTALLER, MELIZA N 535.50 GASTRITIS UNSPEC 01/07/2010 YVES BLEVINS MD 535.50 GASTRITIS UNSPEC 01/07/2010 GOLDBERG CASHERO [employer] RETROFIT INSTALLER, MELIZA N 535.50 GASTRITIS UNSPEC 01/07/2010 GOLDBERG CASHERO D[employer] RETROFIT INSTALLER, MELIZA N 535.50 GASTRITIS UNSPEC 01/07/2010 BURROUGHS DO, RACIEL K 535.50 GASTRITIS UNSPEC 01/07/2010 GOLDBERG CASHERO [employer] RETR[employer]IT INSTALLER, MELIZA N 535.50 GASTRITIS UNSPEC 01/07/2010 GOLDBERG CASHERO DIESEL RETROFIT INSTALLER, MELIZA N 535.50 GASTRITIS UNSPEC 01/07/2010 GOLDBERG CASHERO DIESEL RETROFIT INSTALLER, MELIZA N 535.50 GASTRITIS UNSPEC 01/07/2010 GOLDBERG CASHERO DIESEL RETROFIT INSTALLER, MELIZA N 535.50 GASTRITIS UNSPEC 01/07/2010 BURROUGHS DO, RACIEL K 535.50 GASTRITIS UNSPEC 01/07/2010 BURROUGHS DO, RACIEL K 535.50 GASTRITIS UNSPEC 07/19/2010 YVES BLEVINS MD 296.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 07/19/2010 YVES BLEVINS MD2.9 CELLULITIS 07/19/2010 GOLDBERG CASHERO [employer] INSTALLER, MELIZA N 296.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 07/19/2010 GOLDBERG CASHERO D[employer] RETROFIT INSTALLER, MELIZA N 682.9 CELLULITIS 07/19/2010 YVES BLEVINS MD 296.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 07/19/2010 YVES BLEVINS MD 682.9 CELLULITIS 07/19/2010 GOLDBERG CASHERO [employer] RETR[employer]IT INSTALLER, MELIZA N 296.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 07/19/2010 GOLDBERG CASHERO DIESEL RETROFIT INSTALLER, MELIZA N 682.9 CELLULITIS 07/19/2010 GOLDBERG CASHERO DIESEL RETROFIT INSTALLER, MELIZA N 296.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 07/19/2010 GOLDBERG CASHERO DIESEL RETROFIT INSTALLER, MELIZA N 682.9 CELLULITIS 07/19/2010 BURROUGHS DO, RACIEL K 296.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 07/19/2010 BURROUGHS DO, RACIEL K 682.9 CELLULITIS 07/19/2010 GOLDBERG CASHERO [employer]ROFIT INSTALLER, MELIZA N 296.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 07/19/2010 GOLDBERG CASHERO DIESEL RETROFIT INSTALLER, MELIZA N 682.9 CELLULITIS 07/19/2010 GOLDBERG CASHERO DIESEL RETROFIT INSTALLER, MELIZA N 296.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 07/19/2010 GOLDBERG CASHERO DIESEL RETROFIT INSTALLER, MELIZA N 682.9 CELLULITIS 07/19/2010 GOLDBERG CASHERO DIESEL RETROFIT INSTALLER, MELIZA N 296.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 07/19/2010 GOLDBERG CASHERO DIESEL RETROFIT INSTALLER, MELIZA N 682.9 CELLULITIS 07/19/2010 GOLDBERG CASHERO DIESEL RETROFIT INSTALLER, MELIZA N 296.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 07/19/2010 ASHLYN LAKSHMIMELIZA PERALES APRN N 682.9 CELLULITIS 07/19/2010 BURROUGHS RACIEL JUAREZ K 296.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 07/19/2010 BURROUGHS KEEGAN JUAREZA K 682.9 CELLULITIS 07/19/2010 BURROUGHS DO, RACIEL K 296.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 07/19/2010 BURROUGHS , RACIEL K 682.9 CELLULITIS 08/12/2010 Ot 250.00 08/12/2010 Ot 311 08/12/2010 Ot 707.15 08/12/2010 Ot V58.69 08/12/2010 Ot V62.84 09/01/2010 Ot 682.3 09/01/2010 Ot 881.10 09/01/2010 Ot E000.8 09/01/2010 Ot E849.7 09/01/2010 Ot E920.8 09/04/2010 F 682.3 09/04/2010 F 881.11 09/04/2010 F E849.7 09/04/2010 F E958.8 09/07/2010 Ot 250.60 09/07/2010 Ot 250.80 09/07/2010 Ot 305.03 09/07/2010 Ot 305.1 09/07/2010 Ot 305.90 09/07/2010 Ot 311 09/07/2010 Ot 357.2 09/07/2010 Ot 530.81 09/07/2010 Ot 682.3 09/07/2010 Ot 707.15 09/07/2010 Ot 881.10 09/07/2010 Ot E849.7 09/07/2010 Ot E956 10/08/2010 Ot 041.04 10/08/2010 Ot 070.70 10/08/2010 Ot 250.60 10/08/2010 Ot 311 10/08/2010 Ot 401.9 10/08/2010 Ot 682.7 10/08/2010 Ot 707.15 10/08/2010 Ot V58.69 10/28/2010 YVES BLEVINS MD 894.0 WOUND OPEN LOWER LIMB 10/28/2010 MELIZA THORNTON APRN N 894.0 WOUND OPEN LOWER LIMB 10/28/2010 YVES BLEVINS MD 894.0 WOUND OPEN LOWER LIMB 10/28/2010 MELIZA THORNTON APRN N 894.0 WOUND OPEN LOWER LIMB 10/28/2010 ASHLYN CEDILLO [employer] INSTALLER, MELIZA N 894.0 WOUND OPEN LOWER LIMB 10/28/2010 BURROUGHS DO, RACIEL K 894.0 WOUND OPEN LOWER LIMB 10/28/2010 ASHLYN CEDILLO APRN, MELIZA N 894.0 WOUND OPEN LOWER LIMB 10/28/2010 ASHLYN CEDILLO APRN, MELIZA N 894.0 WOUND OPEN LOWER LIMB 10/28/2010 ASHLYN CEDILLO APRN, MELIZA N 894.0 WOUND OPEN LOWER LIMB 10/28/2010 ASHLYN CEDILLO APRN, MELIZA N 894.0 WOUND OPEN LOWER LIMB 10/28/2010 BURROUGHS DO, RACIEL K 894.0 WOUND OPEN LOWER LIMB 10/28/2010 BURROUGHS DO, RACIEL K 894.0 WOUND OPEN LOWER LIMB 11/03/2010 Ot 729.5 12/09/2010 Ot 250.60 12/09/2010 Ot 682.3 12/09/2010 Ot 707.15 12/09/2010 Ot 881.10 12/09/2010 Ot E000.8 12/09/2010 Ot E849.7 12/09/2010 Ot E928.9 12/09/2010 Ot V58.69 01/09/2011 Ot 250.60 01/09/2011 Ot 707.15 08/28/2011 YVES BLEVINS MD NODX NO DIAGNOSIS 08/28/2011 MELIZA THORNTON APRN N NODX NO DIAGNOSIS 08/28/2011 YVES BLEVINS MD NODX NO DIAGNOSIS 08/28/2011 MELIZA THORNTON APRN N NODX NO DIAGNOSIS 08/28/2011 ASHLYN CEDILLO APRN, MELIZA N NODX NO DIAGNOSIS 08/28/2011 BURROUGHS DORACIEL K NODX NO DIAGNOSIS 08/28/2011 ASHLYN CEDILLO DIESEL [employer]IT INSTALLER, MELIZA N NODX NO DIAGNOSIS 08/28/2011 ASHLYN CEDILLO APRN, MELZIA N NODX NO DIAGNOSIS 08/28/2011 ASHLYN CEDILLO D[employer]EL [employer]IT INSTALLER, MELIZA N NODX NO DIAGNOSIS 08/28/2011 ASHLYN CEDILLO DIESEL RETROFIT INSTALLER, MELIZA N NODX NO DIAGNOSIS 08/28/2011 BURROUGHS DO, RACIEL K NODX NO DIAGNOSIS 08/28/2011 BURROUGHS DO, RACIEL K NODX NO DIAGNOSIS 09/01/2011 YVES BLEVINS MD 295.70 P SCHIZO AFFECTIVE 09/01/2011 YVES BLEVINS MD V58.69 MEDICATION HIGH RISK 09/01/2011 GOLDBERG CASHERO DIESEL [employer]ROFIT INSTALLER, MELIZA N 295.70 P SCHIZO AFFECTIVE 09/01/2011 GOLDBERG CASHERO DIESEL RETROFIT INSTALLER, MELIZA N V58.69 MEDICATION HIGH RISK 09/01/2011 YVES BLEVINS MD 295.70 P SCHIZO AFFECTIVE 09/01/2011 YVES BLEVINS MD V58.69 MEDICATION HIGH RISK 09/01/2011 GOLDBERG CASHERO DIESEL RETROFIT INSTALLER, MELIZA N 295.70 P SCHIZO AFFECTIVE 09/01/2011 GOLDBERG CASHERO DIESEL RETROFIT INSTALLER, MELIZA N V58.69 MEDICATION HIGH RISK 09/01/2011 GOLDBERG CASHERO DIESEL RETROFIT INSTALLER, MELIZA N 295.70 P SCHIZO AFFECTIVE 09/01/2011 GOLDBERG CASHERO DIESEL RETROFIT INSTALLER, MELIZA N V58.69 MEDICATION HIGH RISK 09/01/2011 BURROUGHS DO, RACIEL K 295.70 P SCHIZO AFFECTIVE 09/01/2011 BURROUGHS DO, RACIEL K V58.69 MEDICATION HIGH RISK 09/01/2011 GOLDBERG CASHERO D[employer]ROFIT INSTALLER, MELIZA N 295.70 P SCHIZO AFFECTIVE 09/01/2011 GOLDBERG CASHERO DIESEL RETROFIT INSTALLER, MELIZA N V58.69 MEDICATION HIGH RISK 09/01/2011 GOLDBERG CASHERO DIESEL RETROFIT INSTALLER, MELIZA N 295.70 P SCHIZO AFFECTIVE 09/01/2011 GOLDBERG CASHERO DIESEL RETROFIT INSTALLER, MELIZA N V58.69 MEDICATION HIGH RISK 09/01/2011 GOLDBERG CASHERO DIESEL RETROFIT INSTALLER, MELIZA N 295.70 P SCHIZO AFFECTIVE 09/01/2011 GOLDBERG CASHERO DIESEL RETROFIT INSTALLER, MELIZA N V58.69 MEDICATION HIGH RISK 09/01/2011 GOLDBERG CASHERO DIESEL RETROFIT INSTALLER, MELIZA N 295.70 P SCHIZO AFFECTIVE 09/01/2011 GOLDBERG CASHERO DIESEL RETROFIT INSTALLER, MELIZA N V58.69 MEDICATION HIGH RISK 09/01/2011 BURROUGHS DO, RACIEL K 295.70 P SCHIZO AFFECTIVE 09/01/2011 BURROUGHS DO, RACIEL K V58.69 MEDICATION HIGH RISK 09/01/2011 BURROUGHS DO, RACIEL K 295.70 P SCHIZO AFFECTIVE 09/01/2011 BURROUGHS DO, RACIEL K V58.69 MEDICATION HIGH RISK 02/18/2012 Ot 780.39 06/08/2012 YVES BLEVINS MD 250.03 DIABETES MELLITUS WITHOUT MENTION OF COMPLICATION TYPE I [JUVENILE TYPE] UNCONTROLLED 06/08/2012 YVSE BLEVINS MD 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 06/08/2012 YVES BLEVINS MD 356.9 UNSPECIFIED IDIOPATHIC PERIPHERAL NEUROPATHY 06/08/2012 MELIZA THORNTON APRN N 250.03 DIABETES MELLITUS WITHOUT MENTION OF COMPLICATION TYPE I [ JUVENILE TYPE] UNCONTROLLED 06/08/2012 MELIZA THORNTON APRN N 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 06/08/2012 GOLDBERG NGUYEN FELIX, MELIZA N 356.9 UNSPECIFIED IDIOPATHIC PERIPHERAL NEUROPATHY 06/08/2012 YVES BLEVINS MD 250.03 DIABETES MELLITUS WITHOUT MENTION OF COMPLICATION TYPE I [JUVENILE TYPE] UNCONTROLLED 06/08/2012 YVES BLEVINS MD 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 06/08/2012 YVES BLEVINS MD 356.9 UNSPECIFIED IDIOPATHIC PERIPHERAL NEUROPATHY 06/08/2012 GOLDBERG NGUYEN FELIX, MELIZA N 250.03 DIABETES MELLITUS WITHOUT MENTION OF COMPLICATION TYPE I [ JUVENILE TYPE] UNCONTROLLED 06/08/2012 GOLDBERG CASHERO DIESEL RETROFIT INSTALLER, MELIZA N 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 06/08/2012 GOLDBERG NGUYEN FELIX, MELIZA N 356.9 UNSPECIFIED IDIOPATHIC PERIPHERAL NEUROPATHY 06/08/2012 GOLDBERG CASHANGELLA FELIX, MELIZA N 250.03 DIABETES MELLITUS WITHOUT MENTION OF COMPLICATION TYPE I [ JUVENILE TYPE] UNCONTROLLED 06/08/2012 GOLDBERG CASHANGELLA DIESEL RETROFIT INSTALLER, MELIZA N 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 06/08/2012 GOLDBERG CASHERO DIESEL RETROFIT INSTALLER, MELIZA N 356.9 UNSPECIFIED IDIOPATHIC PERIPHERAL NEUROPATHY 06/08/2012 BURROUGHS DO, RACIEL K 250.03 DIABETES MELLITUS WITHOUT MENTION OF COMPLICATION TYPE I [JUVENILE TYPE] UNCONTROLLED 06/08/2012 BURROUGHS DO, RACIEL K 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 06/08/2012 BURROUGHS DO, RACIEL K 356.9 UNSPECIFIED IDIOPATHIC PERIPHERAL NEUROPATHY 06/08/2012 GOLDBERG CASHANGELLA DIESEL RETROFIT INSTALLER, MELIZA N 250.03 DIABETES MELLITUS WITHOUT MENTION OF COMPLICATION TYPE I [ JUVENILE TYPE] UNCONTROLLED 06/08/2012 GOLDBERG CASHANGELLA DIESEL RETROFIT INSTALLER, MELIZA N 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 06/08/2012 MELIZA THORNTON APRN N 356.9 UNSPECIFIED IDIOPATHIC PERIPHERAL NEUROPATHY 06/08/2012 MELIZA THORNTON APRN N 250.03 DIABETES MELLITUS WITHOUT MENTION OF COMPLICATION TYPE I [ JUVENILE TYPE] UNCONTROLLED 06/08/2012 ASHLYN CEDILLO APRNAMARACY N 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 06/08/2012 ASHLYN CEDILLO APRNAMARACY N 356.9 UNSPECIFIED IDIOPATHIC PERIPHERAL NEUROPATHY 06/08/2012 ASHLYN CEDILLO APRNAMARACY N 250.03 DIABETES MELLITUS WITHOUT MENTION OF COMPLICATION TYPE I [ JUVENILE TYPE] UNCONTROLLED 06/08/2012 ASHLYN CEDILLO APRNAMARACY N 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 06/08/2012 ASHLYN CEDILLO APRNAMARACY N 356.9 UNSPECIFIED IDIOPATHIC PERIPHERAL NEUROPATHY 06/08/2012 ASHLYN CEDILLO APRNAMARACY N 250.03 DIABETES MELLITUS WITHOUT MENTION OF COMPLICATION TYPE I [ JUVENILE TYPE] UNCONTROLLED 06/08/2012 ASHLYN CEDILLO APRNAMARACY N 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 06/08/2012 AMARA THORNTON APRNCY N 356.9 UNSPECIFIED IDIOPATHIC PERIPHERAL NEUROPATHY 06/08/2012 BURROUGHS DO, RACIEL K 250.03 DIABETES MELLITUS WITHOUT MENTION OF COMPLICATION TYPE I [JUVENILE TYPE] UNCONTROLLED 06/08/2012 BURROUGHS DO, RACIEL K 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 06/08/2012 BURROUGHS DO, RACIEL K 356.9 UNSPECIFIED IDIOPATHIC PERIPHERAL NEUROPATHY 06/08/2012 BURROUGHS DO, RACIEL K 250.03 DIABETES MELLITUS WITHOUT MENTION OF COMPLICATION TYPE I [JUVENILE TYPE] UNCONTROLLED 06/08/2012 BURROUGHS DO, RACIEL K 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 06/08/2012 BURROUGHS DO, RACIEL K 356.9 UNSPECIFIED IDIOPATHIC PERIPHERAL NEUROPATHY 12/09/2012 ASHLYN MARTINSANGELLA DIESEL RETROFIT INSTALLERMELIZA Bruce N 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 12/09/2012 GEN HERNANDEZ, YVES 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 12/09/2012 GOLDBERG LAKSHMIMELIZA PERALES APRN N 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 12/09/2012 GOLDBERGMARCELLO CEDILLO APRN, MELIZA N 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 12/09/2012 BURROUGHS DO, RACIEL K 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 12/09/2012 ASHLYN CEDILLO APRAMARA BruceCY N 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 12/09/2012 ASHLYN CEDILLO APRN, MELIZA N 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 12/09/2012 ASHLYN CEDILLO APRAMARA BruceCY N 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 12/09/2012 ASHLYN MARTINSERO DIESEL RETROFIT INSTALLER, MELIZA N 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 12/09/2012 BURROUGHS DO, RACIEL K 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 12/09/2012 BURROUGHS DO, RACIEL K 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 08/23/2013 ASHLYN CEDILLO APRN, MELIZA N 110.4 DERMATOPHYTOSIS OF FOOT 08/23/2013 ASHLYN MARTINSAMARA PERALES APRNCY N 700 CORNS AND CALLOSITIES 08/23/2013 GOLDBERGMARCELLO CEDILLO APRN, MELIZA N 707.15 ULCER OF OTHER PART OF FOOT 08/23/2013 GOLDBERGMARCELLO CEDILLO APRN, MELIZA N 110.4 DERMATOPHYTOSIS OF FOOT 08/23/2013 ASHLYN CEDILLO APRN, MELIZA N 700 CORNS AND CALLOSITIES 08/23/2013 GOLDBERGMARCELLO CEDILLO DIESEL RETROFIT INSTALLER, MELIZA N 707.15 ULCER OF OTHER PART OF FOOT 08/23/2013 BURROUGHS DO, RACIEL K 110.4 DERMATOPHYTOSIS OF FOOT 08/23/2013 BURROUGHS DO, RACIEL K 700 CORNS AND CALLOSITIES 08/23/2013 BURROUGHS DO, RACIEL K 707.15 ULCER OF OTHER PART OF FOOT 08/23/2013 ASHLYN MARTINSANGELLA DIESEL RETROFIT INSTALLER, MELIZA N 110.4 DERMATOPHYTOSIS OF FOOT 08/23/2013 ASHLYN MARTINSERO DIESEL RETROFIT INSTALLER, MELIZA N 700 CORNS AND CALLOSITIES 08/23/2013 GOLDBERG NGUYEN DIESEL RETROFIT INSTALLER, MELIZA N 707.15 ULCER OF OTHER PART OF FOOT 08/23/2013 ASHLYN MARTINSANGELLA DIESEL RETROFIT INSTALLER, MELIZA N 110.4 DERMATOPHYTOSIS OF FOOT 08/23/2013 ASHLYN CEDILLO DIESEL RETROFIT INSTALLER, MELIZA N 700 CORNS AND CALLOSITIES 08/23/2013 GOLDBERG CASHERO DIESEL RETROFIT INSTALLER, MELIZA N 707.15 ULCER OF OTHER PART OF FOOT 08/23/2013 ASHLYN CEDILLO DIESEL RETROFIT INSTALLER, MELIZA N 110.4 DERMATOPHYTOSIS OF FOOT 08/23/2013 GOLDBERG LAKSHMIERO DIESEL RETROFIT INSTALLER, MELIZA N 700 CORNS AND CALLOSITIES 08/23/2013 GOLDBERG LAKSHMIERO DIESEL RETROFIT INSTALLER, MELIZA N 707.15 ULCER OF OTHER PART OF FOOT 08/23/2013 ASHLYN CEDILLO APRN, MELIZA N 110.4 DERMATOPHYTOSIS OF FOOT 08/23/2013 GOLDBERG LAKSHMIERO DIESEL RETROFIT INSTALLER, MELIZA N 700 CORNS AND CALLOSITIES 08/23/2013 GOLDBERG LAKSHMIERO DIESEL RETROFIT INSTALLER, MELIZA N 707.15 ULCER OF OTHER PART OF FOOT 08/23/2013 BURROUGHS DO, RACIEL K 110.4 DERMATOPHYTOSIS OF FOOT 08/23/2013 BURROUGHS DO, RACIEL K 700 CORNS AND CALLOSITIES 08/23/2013 BURROUGHS DO, RACIEL K 707.15 ULCER OF OTHER PART OF FOOT 08/23/2013 BURROUGHS DO, RACIEL K 110.4 DERMATOPHYTOSIS OF FOOT 08/23/2013 BURROUGHS DO, RACIEL K 700 CORNS AND CALLOSITIES 08/23/2013 BURROUGHS DO, RACIEL K 707.15 ULCER OF OTHER PART OF FOOT 09/30/2013 BURROUGHS DO, RACIEL K 110.1 ONYCHOMYCOSIS 09/30/2013 ASHLYN CEDILLO DIESEL RETROFIT INSTALLER, MELIZA N 110.1 ONYCHOMYCOSIS 09/30/2013 ASHLYN CEDILLO DIESEL RETROFIT INSTALLER, MELIZA N 110.1 ONYCHOMYCOSIS 09/30/2013 ASHLYN CEDILLO DIESEL RETROFIT INSTALLER, MELIZA N 110.1 ONYCHOMYCOSIS 09/30/2013 ASHLYN MARTINSERO DIESEL RETROFIT INSTALLER, MELIZA N 110.1 ONYCHOMYCOSIS 09/30/2013 BURROUGHS DO, RACIEL K 110.1 ONYCHOMYCOSIS 09/30/2013 BURROUGHS DO, RACIEL K 110.1 ONYCHOMYCOSIS 01/03/2014 GOLDBERG LAKSHMIERO DIESEL RETROFIT INSTALLER, MELIZA N 724.3 SCIATICA 01/03/2014 GOLDBERG LAKSHMIERO DIESEL RETROFIT INSTALLER, MELIZA N 724.3 SCIATICA 01/03/2014 GOLDBERG LAKSHMIERO DIESEL RETROFIT INSTALLER, MELIZA N 724.3 SCIATICA 01/03/2014 BURROUGHS DO, RACIEL K 724.3 SCIATICA 01/03/2014 BURROUGHS DO, RACIEL K 724.3 SCIATICA 07/18/2014 BURROUGHS DO, RACIEL K 784.42 DYSPHONIA 07/18/2014 BURROUGHS DO, RACIEL K 786.07 WHEEZING 07/18/2014 BURROUGHS DO, RACIEL K 786.2 COUGH 07/18/2014 BURROUGHS DO, RACIEL K V49.71 GREAT TOE AMPUTATION STATUS 07/18/2014 BURROUGHS DO, RACIEL K 784.42 DYSPHONIA 07/18/2014 BURROUGHS DO, RACIEL K 786.07 WHEEZING 07/18/2014 BURROUGHS DO, RACIEL K 786.2 COUGH 07/18/2014 BURROUGHS DO, RACIEL K V49.71 GREAT TOE AMPUTATION STATUS 08/02/2014 BURROUGHS DO, RACIEL K 305.1 NONDEPENDENT TOBACCO USE DISORDER 08/02/2014 BURROUGHS DO, RACIEL K 401.1 HYPERTENSION, BENIGN ESSENTIAL 08/02/2014 BURROUGHS DO, RACIEL K V49.72 OTHER TOE(S) AMPUTATION STATUS 08/02/2014 BURROUGHS DO, RACIEL K V65.42 COUNSELING ON SUBSTANCE USE AND ABUSE 08/02/2014 BURROUGHS DO, RACIEL K 305.1 NONDEPENDENT TOBACCO USE DISORDER 08/02/2014 BURROUGHS DO, RACIEL K 401.1 HYPERTENSION, BENIGN ESSENTIAL 08/02/2014 BURROUGHS DO, RACIEL K V49.72 OTHER TOE(S) AMPUTATION STATUS 08/02/2014 BURROUGHS DO, RACIEL K V65.42 COUNSELING ON SUBSTANCE USE AND ABUSE 03/29/2015 Ot 250.60 03/29/2015 Ot 682.3 03/29/2015 Ot 707.15 03/29/2015 Ot 881.10 03/29/2015 Ot E000.8 03/29/2015 Ot E849.7 03/29/2015 Ot E928.9 03/29/2015 Ot V58.69 03/29/2015 Ot 250.60 03/29/2015 Ot 707.15 03/29/2015 Ot 305.00 03/29/2015 Ot 966.3 03/29/2015 Ot E855.0 03/29/2015 Ot V62.84 03/29/2015 Ot 250.60 03/29/2015 Ot 682.3 03/29/2015 Ot 707.15 03/29/2015 Ot 881.10 03/29/2015 Ot E000.8 03/29/2015 Ot E849.7 03/29/2015 Ot E928.9 03/29/2015 Ot V58.69 03/29/2015 Ot 250.60 03/29/2015 Ot 707.15 03/29/2015 Ot 305.00 03/29/2015 Ot 966.3 03/29/2015 Ot E855.0 03/29/2015 Ot V62.84 04/03/2015 Ot 250.60 04/03/2015 Ot 682.3 04/03/2015 Ot 707.15 04/03/2015 Ot 881.10 04/03/2015 Ot E000.8 04/03/2015 Ot E849.7 04/03/2015 Ot E928.9 04/03/2015 Ot V58.69 04/03/2015 Ot 250.60 04/03/2015 Ot 707.15 04/03/2015 Ot 305.00 04/03/2015 Ot 966.3 04/03/2015 Ot E855.0 04/03/2015 Ot V62.84 04/26/2015 PHILIPPE HERNANDEZ, SIENA Carr Ot E11.622 04/26/2015 PHILIPPE HERNANDEZ, SIENA Carr Ot F17.298 04/26/2015 SIENA PAEZ MD Ot I10 04/26/2015 PHILIPPE HERNANDEZ, SIENA Crar Ot I70.203 04/26/2015 PHILIPPE HERNANDEZ, SIENA Carr Ot L89.890 04/26/2015 PHILIPPE HERNANDEZ, SIENA Carr Ot L89.892 04/26/2015 SIENA PAEZ MD Ot E11.622 04/26/2015 PHILIPPE HERNANDEZ, SIENA Carr Ot F17.298 04/26/2015 PHILIPPE HERNANDEZ, SIENA Carr Ot I10 04/26/2015 PHILIPPE HERNANDEZ, SIENA Carr Ot I70.203 04/26/2015 SIENA PAEZ MD Ot L89.890 04/26/2015 PHILIPPE HERNANDEZ, SIENA Carr Ot L89.892 09/09/2015 Ot 682.3 CELLULITIS OF ARM 09/09/2015 Ot 881.10 OPEN WOUND FOREARM-COMPL 09/09/2015 Ot E000.8 OTHER EXTERNAL CAUSE STATUS 09/09/2015 Ot E849.7 ACCID IN RESIDENT INSTIT 09/09/2015 Ot E920.8 ACC-CUTTING INSTRUM NEC 12/10/2015 Ot 682.3 CELLULITIS OF ARM 12/10/2015 Ot 881.10 OPEN WOUND FOREARM-COMPL 12/10/2015 Ot E000.8 OTHER EXTERNAL CAUSE STATUS 12/10/2015 Ot E849.7 ACCID IN RESIDENT INSTIT 12/10/2015 Ot E920.8 ACC-CUTTING INSTRUM NEC 01/10/2016 Ot 682.3 CELLULITIS OF ARM 01/10/2016 Ot 881.10 OPEN WOUND FOREARM-COMPL 01/10/2016 Ot E000.8 OTHER EXTERNAL CAUSE STATUS 01/10/2016 Ot E849.7 ACCID IN RESIDENT INSTIT 01/10/2016 Ot E920.8 ACC-CUTTING INSTRUM NEC 01/29/2016 SIENA PAEZ MD Ot E11.622 TYPE 2 DIABETES MELLITUS WITH OTHER SKIN 01/29/2016 SIENA PAEZ MD Ot F17.298 NICOTINE DEPENDENCE, OTH TOBACCO PRODUCT 01/29/2016 SIENA PAEZ MD Ot I10 ESSENTIAL (PRIMARY) HYPERTENSION 01/29/2016 SIENA PAEZ MD Ot 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 01/29/2016 SIENA PAEZ MD Ot L89.890 PRESSURE ULCER OF OTHER SITE, UNSTAGEABL 01/29/2016 SIENA PAEZ MD Ot L89.892 PRESSURE ULCER OF OTHER SITE, STAGE 2 03/11/2016 Ot 682.3 CELLULITIS OF ARM 03/11/2016 Ot 881.10 OPEN WOUND FOREARM-COMPL 03/11/2016 Ot E000.8 OTHER EXTERNAL CAUSE STATUS 03/11/2016 Ot E849.7 ACCID IN RESIDENT INSTIT 03/11/2016 Ot E920.8 ACC-CUTTING INSTRUM NEC 06/11/2016 Ot 682.3 CELLULITIS OF ARM 06/11/2016 Ot 881.10 OPEN WOUND FOREARM-COMPL 06/11/2016 Ot E000.8 OTHER EXTERNAL CAUSE STATUS 06/11/2016 Ot E849.7 ACCID IN RESIDENT INSTIT 06/11/2016 Ot E920.8 ACC-CUTTING INSTRUM NEC 09/08/2016 Ot 682.3 CELLULITIS OF ARM 09/08/2016 Ot 881.10 OPEN WOUND FOREARM-COMPL 09/08/2016 Ot E000.8 OTHER EXTERNAL CAUSE STATUS 09/08/2016 Ot E849.7 ACCID IN RESIDENT INSTIT 09/08/2016 Ot E920.8 ACC-CUTTING INSTRUM NEC 12/05/2016 BRIDGER LAWRENCE 922.1 CONTUSION OF CHEST WALL 12/05/2016 BRIDGER LAWRENCE S20.212A CONTUSION OF LEFT FRONT WALL OF THORAX, INITIAL ENCOUNTER 02/08/2017 Ot 682.3 CELLULITIS OF ARM 02/08/2017 Ot 881.10 OPEN WOUND FOREARM-COMPL 02/08/2017 Ot E000.8 OTHER EXTERNAL CAUSE STATUS 02/08/2017 Ot E849.7 ACCID IN RESIDENT INSTIT 02/08/2017 Ot E920.8 ACC-CUTTING INSTRUM NEC 08/28/2017 Pablo, Berenice-Andrzej W 595.9 CYSTITIS, UNSPECIFIED 08/28/2017 Pablo, Berenice-Andrzej W N30.91 CYSTITIS, UNSPECIFIED WITH HEMATURIA 08/28/2017 Pablo, Berenice-Andrzej W 276.1 HYPOSMOLALITY AND/OR HYPONATREMIA 08/28/2017 Pablo, Berenice-Andrzej W 401.9 UNSPECIFIED ESSENTIAL HYPERTENSION 08/28/2017 Pablo, Berenice-Andrzej W 595.9 CYSTITIS, UNSPECIFIED 08/28/2017 Pablo, Berenice-Andrzej W E87.1 HYPO-OSMOLALITY AND HYPONATREMIA 08/28/2017 Pablo, Berenice-Andrzej W I10 ESSENTIAL (PRIMARY) HYPERTENSION 08/28/2017 Pablo, Berenice-Andrzej W N30.91 CYSTITIS, UNSPECIFIED WITH HEMATURIA 08/28/2017 Pablo, Berenice-Andrzej W 276.1 HYPOSMOLALITY AND/OR HYPONATREMIA 08/28/2017 Pablo, Berenice-Andrzej W 401.9 UNSPECIFIED ESSENTIAL HYPERTENSION 08/28/2017 Pablo, Berenice-Andrzej W 595.9 CYSTITIS, UNSPECIFIED 08/28/2017 Pablo, Berenice-Andrzej W E87.1 HYPO-OSMOLALITY AND HYPONATREMIA 08/28/2017 Pablo, Berenice-Andrzej W I10 ESSENTIAL (PRIMARY) HYPERTENSION 08/28/2017 Pablo, Berenice-Andrzej W N30.91 CYSTITIS, UNSPECIFIED WITH HEMATURIA 08/28/2017 Pablo, Berenice-Andrzej W 276.1 HYPOSMOLALITY AND/OR HYPONATREMIA 08/28/2017 Pablo, Berenice-Andrzej W 401.9 UNSPECIFIED ESSENTIAL HYPERTENSION 08/28/2017 Pablo, Berenice-Andrzej W 595.9 CYSTITIS, UNSPECIFIED 08/28/2017 Pablo, Berenice-Andrzej W E87.1 HYPO-OSMOLALITY AND HYPONATREMIA 08/28/2017 Pablo, Berenice-Andrzej W I10 ESSENTIAL (PRIMARY) HYPERTENSION 08/28/2017 Pablo, Berenice-Andrzej W N30.91 CYSTITIS, UNSPECIFIED WITH HEMATURIA 08/28/2017 Pablo, Berenice-Andrzej W 276.1 HYPOSMOLALITY AND/OR HYPONATREMIA 08/28/2017 Pablo, Berenice-Andrzej W 401.9 UNSPECIFIED ESSENTIAL HYPERTENSION 08/28/2017 Pablo, Berenice-Andrzej W 595.9 CYSTITIS, UNSPECIFIED 08/28/2017 Pablo, Berenice-Andrzej W 707.15 ULCER OF OTHER PART OF FOOT 08/28/2017 Pablo, Berenice-Andrzej W E87.1 HYPO-OSMOLALITY AND HYPONATREMIA 08/28/2017 Pablo, Berenice-Andrzej W I10 ESSENTIAL (PRIMARY) HYPERTENSION 08/28/2017 Pablo, Berenice-Andrzej W L97.509 NON-PRESSURE CHRONIC ULCER OF OTHER PART OF UNSPECIFIED FOOT WITH UNSPECIFIED SEVERITY 08/28/2017 Pablo, Berenice-Andrzej W N30.91 CYSTITIS, UNSPECIFIED WITH HEMATURIA 08/29/2017 Pablo, Berenice-Andrzej W 276.1 HYPOSMOLALITY AND/OR HYPONATREMIA 08/29/2017 Pablo, Berenice-Andrzej W 401.9 UNSPECIFIED ESSENTIAL HYPERTENSION 08/29/2017 Pablo, Berenice-Andrzej W 595.9 CYSTITIS, UNSPECIFIED 08/29/2017 Pablo, Berenice-Andrzej W 707.15 ULCER OF OTHER PART OF FOOT 08/29/2017 Pablo, Berenice-Andrzej W E87.1 HYPO-OSMOLALITY AND HYPONATREMIA 08/29/2017 Pablo, Berenice-Andrzej W I10 ESSENTIAL (PRIMARY) HYPERTENSION 08/29/2017 Pablo, Berenice-Andrzej W L97.509 NON-PRESSURE CHRONIC ULCER OF OTHER PART OF UNSPECIFIED FOOT WITH UNSPECIFIED SEVERITY 08/29/2017 Pablo, Berenice-Andrzej W N30.91 CYSTITIS, UNSPECIFIED WITH HEMATURIA 08/29/2017 Pablo, Berenice-Andrzej W 276.1 HYPOSMOLALITY AND/OR HYPONATREMIA 08/29/2017 Pablo, Berenice-Andrzej W 401.9 UNSPECIFIED ESSENTIAL HYPERTENSION 08/29/2017 Pablo, Berenice-Andrzej W 595.9 CYSTITIS, UNSPECIFIED 08/29/2017 Pablo, Berenice-Andrzej W 707.15 ULCER OF OTHER PART OF FOOT 08/29/2017 Pablo, Berenice-Andrzej W E87.1 HYPO-OSMOLALITY AND HYPONATREMIA 08/29/2017 Pablo, Berenice-Andrzej W I10 ESSENTIAL (PRIMARY) HYPERTENSION 08/29/2017 Pablo, Berenice-Andrzej W L97.509 NON-PRESSURE CHRONIC ULCER OF OTHER PART OF UNSPECIFIED FOOT WITH UNSPECIFIED SEVERITY 08/29/2017 Pablo, Berenice-Andrzej W N30.91 CYSTITIS, UNSPECIFIED WITH HEMATURIA 08/29/2017 Pablo, Berenice-Andrzej W 276.1 HYPOSMOLALITY AND/OR HYPONATREMIA 08/29/2017 Pablo, Berenice-Andrzej W 401.9 UNSPECIFIED ESSENTIAL HYPERTENSION 08/29/2017 Pablo, Berenice-Andrzej W 595.9 CYSTITIS, UNSPECIFIED 08/29/2017 Pablo, Berenice-Andrzej W 707.15 ULCER OF OTHER PART OF FOOT 08/29/2017 Pablo, Berenice-Andrzej W E87.1 HYPO-OSMOLALITY AND HYPONATREMIA 08/29/2017 Pablo, Berenice-Andrzej W I10 ESSENTIAL (PRIMARY) HYPERTENSION 08/29/2017 Pablo, Berenice-Andrzej W L97.509 NON-PRESSURE CHRONIC ULCER OF OTHER PART OF UNSPECIFIED FOOT WITH UNSPECIFIED SEVERITY 08/29/2017 Pablo, Berenice-Andrzej W N30.91 CYSTITIS, UNSPECIFIED WITH HEMATURIA 08/29/2017 Pablo, Berenice-Andrzej W 276.1 HYPOSMOLALITY AND/OR HYPONATREMIA 08/29/2017 Pablo, Berenice-Andrzej W 401.9 UNSPECIFIED ESSENTIAL HYPERTENSION 08/29/2017 Pablo, Berenice-Andrzej W 595.9 CYSTITIS, UNSPECIFIED 08/29/2017 Pablo, Berenice-Andrzej W 707.15 ULCER OF OTHER PART OF FOOT 08/29/2017 Pablo, Berenice-Andrzej W E87.1 HYPO-OSMOLALITY AND HYPONATREMIA 08/29/2017 Pablo, Berenice-Andrzej W I10 ESSENTIAL (PRIMARY) HYPERTENSION 08/29/2017 Pablo, Berenice-Andrzej W L97.509 NON-PRESSURE CHRONIC ULCER OF OTHER PART OF UNSPECIFIED FOOT WITH UNSPECIFIED SEVERITY 08/29/2017 Pablo, Berenice-Andrzej W N30.91 CYSTITIS, UNSPECIFIED WITH HEMATURIA 08/29/2017 Pablo, Berenice-Andrzej W 276.1 HYPOSMOLALITY AND/OR HYPONATREMIA 08/29/2017 Pablo, Berenice-Andrzej W 401.9 UNSPECIFIED ESSENTIAL HYPERTENSION 08/29/2017 Pablo, Berenice-Andrzej W 595.9 CYSTITIS, UNSPECIFIED 08/29/2017 Pablo, Berenice-Andrzej W 707.15 ULCER OF OTHER PART OF FOOT 08/29/2017 Pablo, Berenice-Andrzej W E87.1 HYPO-OSMOLALITY AND HYPONATREMIA 08/29/2017 Pablo, Berenice-Andrzej W I10 ESSENTIAL (PRIMARY) HYPERTENSION 08/29/2017 Pablo, Berenice-Andrzej W L97.509 NON-PRESSURE CHRONIC ULCER OF OTHER PART OF UNSPECIFIED FOOT WITH UNSPECIFIED SEVERITY 08/29/2017 Pablo, Berenice-Andrzej W N30.91 CYSTITIS, UNSPECIFIED WITH HEMATURIA 08/29/2017 Pablo, Berenice-Andrzej W 276.1 HYPOSMOLALITY AND/OR HYPONATREMIA 08/29/2017 Pablo, Berenice-Andrzej W 401.9 UNSPECIFIED ESSENTIAL HYPERTENSION 08/29/2017 Pablo, Berenice-Andrzej W 595.9 CYSTITIS, UNSPECIFIED 08/29/2017 Pablo, Berenice-Andrzej W 707.15 ULCER OF OTHER PART OF FOOT 08/29/2017 Pablo, Berenice-Andrzej W 786.2 08/29/2017 Pablo, Berenice-Andrzej W E87.1 HYPO-OSMOLALITY AND HYPONATREMIA 08/29/2017 Pablo, Berenice-Andrzej W I10 ESSENTIAL (PRIMARY) HYPERTENSION 08/29/2017 Pablo, Berenice-Andrzej W L97.509 NON-PRESSURE CHRONIC ULCER OF OTHER PART OF UNSPECIFIED FOOT WITH UNSPECIFIED SEVERITY 08/29/2017 Pablo, Berenice-Andrzej W N30.91 CYSTITIS, UNSPECIFIED WITH HEMATURIA 08/29/2017 Pablo, Berenice-Andrzej W R05 COUGH 08/29/2017 Pablo, Berenice-Andrzej W 276.1 HYPOSMOLALITY AND/OR HYPONATREMIA 08/29/2017 Pablo, Berenice-Andrzej W 401.9 UNSPECIFIED ESSENTIAL HYPERTENSION 08/29/2017 Pablo, Berenice-Andrzej W 595.9 CYSTITIS, UNSPECIFIED 08/29/2017 Pablo, Berenice-Andrzej W 707.15 ULCER OF OTHER PART OF FOOT 08/29/2017 Pablo, Berenice-Andrzje W 786.2 08/29/2017 Pablo, Berenice-Andrzej W E87.1 HYPO-OSMOLALITY AND HYPONATREMIA 08/29/2017 Pablo, Berenice-Andrzej W I10 ESSENTIAL (PRIMARY) HYPERTENSION 08/29/2017 Pablo, Berenice-Andrzej W L97.509 NON-PRESSURE CHRONIC ULCER OF OTHER PART OF UNSPECIFIED FOOT WITH UNSPECIFIED SEVERITY 08/29/2017 Pablo, Berenice-Andrzej W N30.91 CYSTITIS, UNSPECIFIED WITH HEMATURIA 08/29/2017 Pablo, Berenice-Andrzej W R05 COUGH 08/29/2017 Pablo, Berenice-Andrzej W 276.1 HYPOSMOLALITY AND/OR HYPONATREMIA 08/29/2017, Berenice-Andrzej W 401.9 UNSPECIFIED ESSENTIAL HYPERTENSION 08/29/2017, Berenice-Andrzej W 535.00 08/29/2017 Pablo, Berenice-Andrzej W 595.9 CYSTITIS, UNSPECIFIED 08/29/2017 Pablo, Berenice-Andrzej W 707.15 08/29/2017 Pablo, Berenice-Andrzej W 786.2 08/29/2017 Pablo, Berenice-Andrzej W E87.1 HYPO-OSMOLALITY AND HYPONATREMIA 08/29/2017 Pablo, Berenice-Andrzej W I10 ESSENTIAL (PRIMARY) HYPERTENSION 08/29/2017 Pablo, Berenice-Andrzej W K29.00 ACUTE GASTRITIS WITHOUT BLEEDING 08/29/2017 Pablo, Berenice-Andrzej W L97.509 NON-PRESSURE CHRONIC ULCER OF OTHER PART OF UNSPECIFIED FOOT WITH UNSPECIFIED SEVERITY 08/29/2017 Pablo, Berenice-Andrzej W N30.91 CYSTITIS, UNSPECIFIED WITH HEMATURIA 08/29/2017 Pablo, Berenice-Andrzej W R05 COUGH 08/29/2017 Pablo, Berenice-Andrzej W 276.1 HYPOSMOLALITY AND/OR HYPONATREMIA 08/29/2017 Pablo, Berenice-Andrzej W 401.9 UNSPECIFIED ESSENTIAL HYPERTENSION 08/29/2017, Berenice-Andrzej W 535.00 08/29/2017 Pablo, Berenice-Andrzej W 595.9 CYSTITIS, UNSPECIFIED 08/29/2017 Pablo, Berenice-Andrzej W 707.15 08/29/2017 Pablo, Berenice-Andrzej W 786.2 08/29/2017 Pablo, Berenice-Andrzej W E87.1 HYPO-OSMOLALITY AND HYPONATREMIA 08/29/2017 Pablo, Berenice-Andrzej W I10 ESSENTIAL (PRIMARY) HYPERTENSION 08/29/2017 Pablo, Berenice-Andrzej W K29.00 ACUTE GASTRITIS WITHOUT BLEEDING 08/29/2017 Pablo, Berenice-Andrzej W L97.509 NON-PRESSURE CHRONIC ULCER OF OTHER PART OF UNSPECIFIED FOOT WITH UNSPECIFIED SEVERITY 08/29/2017 Pablo, Berenice-Andrzej W N30.91 CYSTITIS, UNSPECIFIED WITH HEMATURIA 08/29/2017 Pablo, Berenice-Andrzej W R05 COUGH 08/29/2017 Pablo, Berenice-Andrzej W 276.1 HYPOSMOLALITY AND/OR HYPONATREMIA 08/29/2017, Berenice-Andrzej W 401.9 UNSPECIFIED ESSENTIAL HYPERTENSION 08/29/2017, Berenice-Andrzej W 535.00 08/29/2017 Pablo, Berenice-Andrzej W 595.9 CYSTITIS, UNSPECIFIED 08/29/2017 Pablo, Berenice-Andrzej W 707.15 08/29/2017 Pablo, Berenice-Andrzej W 786.2 08/29/2017 Pablo, Berenice-Andrzej W E87.1 HYPO-OSMOLALITY AND HYPONATREMIA 08/29/2017 Pablo, Berenice-Andrzej W I10 ESSENTIAL (PRIMARY) HYPERTENSION 08/29/2017 Pablo, Berenice-Andrzej W K29.00 ACUTE GASTRITIS WITHOUT BLEEDING 08/29/2017 Pablo, Berenice-Andrzej W L97.509 NON-PRESSURE CHRONIC ULCER OF OTHER PART OF UNSPECIFIED FOOT WITH UNSPECIFIED SEVERITY 08/29/2017 Pablo, Berenice-Andrzej W N30.91 CYSTITIS, UNSPECIFIED WITH HEMATURIA 08/29/2017 Pablo, Berenice-Andrzej W R05 COUGH 08/29/2017 Pablo, Berenice-Andrzej W 276.1 HYPOSMOLALITY AND/OR HYPONATREMIA 08/29/2017 Pablo, Berenice-Andrzej W 401.9 UNSPECIFIED ESSENTIAL HYPERTENSION 08/29/2017, Berenice-Andrzej W 535.00 08/29/2017 Pablo, Berenice-Andrzej W 595.9 CYSTITIS, UNSPECIFIED 08/29/2017 Pablo, Berenice-Andrzej W 707.15 08/29/2017 Pablo, Berenice-Andrzej W 786.2 08/29/2017 Pablo, Berenice-Andrzej W E87.1 HYPO-OSMOLALITY AND HYPONATREMIA 08/29/2017 Pablo, Berenice-Andrzej W I10 ESSENTIAL (PRIMARY) HYPERTENSION 08/29/2017 Pablo, Berenice-Andrzej W K29.00 ACUTE GASTRITIS WITHOUT BLEEDING 08/29/2017 Pablo, Berenice-Andrzej W L97.509 NON-PRESSURE CHRONIC ULCER OF OTHER PART OF UNSPECIFIED FOOT WITH UNSPECIFIED SEVERITY 08/29/2017 Pablo, Berenice-Andrzej W N30.91 CYSTITIS, UNSPECIFIED WITH HEMATURIA 08/29/2017 Pablo, Berenice-Andrzej W R05 COUGH 08/30/2017 Pablo, Beernice-Andrzej W 276.1 HYPOSMOLALITY AND/OR HYPONATREMIA 08/30/2017 Pablo, Berenice-Andrzej W 401.9 UNSPECIFIED ESSENTIAL HYPERTENSION 08/30/2017, Berenice-Andrzej W 535.00 08/30/2017 Pablo, Berenice-Andrzej W 595.9 CYSTITIS, UNSPECIFIED 08/30/2017 Pablo, Berenice-Andrzej W 707.15 08/30/2017 Pablo, Berenice-Andrzej W 786.2 08/30/2017 Pablo, Berenice-Andrzej W E87.1 HYPO-OSMOLALITY AND HYPONATREMIA 08/30/2017 Pablo, Berenice-Andrzej W I10 ESSENTIAL (PRIMARY) HYPERTENSION 08/30/2017 Pablo, Berenice-Andrzej W K29.00 ACUTE GASTRITIS WITHOUT BLEEDING 08/30/2017 Pablo, Berenice-Andrzej W L97.509 NON-PRESSURE CHRONIC ULCER OF OTHER PART OF UNSPECIFIED FOOT WITH UNSPECIFIED SEVERITY 08/30/2017 Pablo, Berenice-Andrzej W N30.91 CYSTITIS, UNSPECIFIED WITH HEMATURIA 08/30/2017 Pablo, BereniceMaríaAndrzej W R05 COUGH 09/14/2017 Juliana Buckner W 276.1 HYPOSMOLALITY AND/OR HYPONATREMIA 09/14/2017 Lenore Bucknera W 681.10 CELLULITIS AND ABSCESS OF TOE, UNSPECIFIED 09/14/2017 Lenore Bucknera W 682.6 CELLULITIS AND ABSCESS OF LEG, EXCEPT FOOT 09/14/2017 Lenore Bucknera W E87.1 HYPO-OSMOLALITY AND HYPONATREMIA 09/14/2017 Juliana Buckner W L03.031 CELLULITIS OF RIGHT TOE 09/14/2017 Dudley, Juliana W L03.115 CELLULITIS OF RIGHT LOWER LIMB 09/14/2017 Dudley, Juliana W 250.00 DIABETES MELLITUS WITHOUT MENTION OF COMPLICATION, TYPE II OR UNSPECIFIED TYPE, NOT STATED UNCONTROLLED 09/14/2017 Dudley, Juliana W 276.1 HYPOSMOLALITY AND/OR HYPONATREMIA 09/14/2017 Dudley, Juliana W 296.80 09/14/2017 Dudley, Juliana W 401.9 09/14/2017 Dudley, Juliana W 681.10 CELLULITIS AND ABSCESS OF TOE, UNSPECIFIED 09/14/2017 Dudley, Juliana W 682.6 CELLULITIS AND ABSCESS OF LEG, EXCEPT FOOT 09/14/2017 Dudley, Juliana W E11.9 TYPE 2 DIABETES MELLITUS WITHOUT COMPLICATIONS 09/14/2017 Dudley, Juliana W E87.1 HYPO-OSMOLALITY AND HYPONATREMIA 09/14/2017 Dudely, Juliana W F20 SCHIZOPHRENIA 09/14/2017 Dudley, Juliana W F31.9 BIPOLAR DISORDER, UNSPECIFIED 09/14/2017 Dudley, Juliana W I10 ESSENTIAL (PRIMARY) HYPERTENSION 09/14/2017 Dudley, Juliana W L03.031 CELLULITIS OF RIGHT TOE 09/14/2017 Dudley, Juliana W L03.115 CELLULITIS OF RIGHT LOWER LIMB 09/15/2017 Dudley, Juliana W 250.00 09/15/2017 Dudley, Juliana W 276.1 09/15/2017 Dudley, Juliana W 296.80 09/15/2017 Dudley, Juliana W 401.9 09/15/2017 Dudley, Juliana W 681.10 CELLULITIS AND ABSCESS OF TOE, UNSPECIFIED 09/15/2017 Dudley, Juliana W 682.6 CELLULITIS AND ABSCESS OF LEG, EXCEPT FOOT 09/15/2017 Dudley, Juliana W E11.9 TYPE 2 DIABETES MELLITUS WITHOUT COMPLICATIONS 09/15/2017 Dudley, Juliana W E87.1 HYPO-OSMOLALITY AND HYPONATREMIA 09/15/2017 Dudley, Juliana W F20 SCHIZOPHRENIA 09/15/2017 Dudley, Juliana W F31.9 BIPOLAR DISORDER, UNSPECIFIED 09/15/2017 Dudley, Juliana W I10 ESSENTIAL (PRIMARY) HYPERTENSION 09/15/2017 Dudley, Juliana W L03.031 CELLULITIS OF RIGHT TOE 09/15/2017 Juliana Buckner W L03.115 CELLULITIS OF RIGHT LOWER LIMB Procedures Code Description [place] [address] A1C (IN-HOUSE) 06/08/2012 PODIATRY BREANA HAWTHORNEIN 06/11/2013 99473 A1C (IN-HOUSE) 08/23/2013 10852 DEBRIDE NAIL 1-5 09/30/2013 57602 AMERITOX 10/04/2013 Physical Physical Therapy 01/03/2014 52777 CMP 04/18/2014 18779 LIPID PANEL 04/18/2014 19532 VIT B 12 04/18/2014 24129 VITAMIN D I-25 DIHYDROXY 04/18/2014 82139 A1C (IN-HOUSE) 04/18/2014 04790 TSH 04/18/2014 97706 CBC 04/18/2014 72359 A1C (IN-HOUSE) 08/02/2014 Results Test Result Range CBC With Differential/Platelet - 05/21/16 14:49 WBC 6.4 x10E3/uL 3.4-10.8 RBC 4.13 x10E6/uL 4.14-5.80 Hemoglobin 14.3 g/dL 12.6-17.7 Hematocrit 39.3 % 37.5-51.0 MCV 95 fL 79-97 MCH 34.6 pg 26.6-33.0 MCHC 36.4 g/dL 31.5-35.7 RDW 12.9 % 12.3-15.4 Platelets 216 x10E3/uL 150-379 Neutrophils 66 % Lymphs 19 % Monocytes 13 % Eos 1 % Basos 1 % Neutrophils (Absolute) 4.3 x10E3/uL 1.4-7.0 Lymphs (Absolute) 1.2 x10E3/uL 0.7-3.1 Monocytes(Absolute) 0.8 x10E3/uL 0.1-0.9 Eos (Absolute) 0.0 x10E3/uL 0.0-0.4 Baso (Absolute) 0.0 x10E3/uL 0.0-0.2 Immature Granulocytes 0 % Immature Grans (Abs) 0.0 x10E3/uL 0.0-0.1 Comp. Metabolic Panel (14) - 05/21/16 14:49 Glucose, Serum 155 mg/dL 65-99 BUN 6 mg/dL 6-24 Creatinine, Serum 0.60 mg/dL 0.76-1.27 eGFR If NonAfricn Am 124 mL/min/1.73 >59 eGFR If Africn Am 143 mL/min/1.73 >59 BUN/Creatinine Ratio 10 9-20 Sodium, Serum 131 mmol/L 134-144 Potassium, Serum 3.8 mmol/L 3.5-5.2 Chloride, Serum 90 mmol/L 96-106 Carbon Dioxide, Total 18 mmol/L 18-29 Calcium, Serum 9.4 mg/dL 8.7-10.2 Protein, Total, Serum 7.3 g/dL 6.0-8.5 Albumin, Serum 4.8 g/dL 3.5-5.5 Globulin, Total 2.5 g/dL 1.5-4.5 A/G Ratio 1.9 1.1-2.5 Bilirubin, Total 0.4 mg/dL 0.0-1.2 Alkaline Phosphatase, S 63 IU/L 39-117 AST (SGOT) 26 IU/L 0-40 ALT (SGPT) 26 IU/L 0-44 Lipid Panel - 05/21/16 14:49 Cholesterol, Total 156 mg/dL 100-199 Triglycerides 51 mg/dL 0-149 HDL Cholesterol 74 mg/dL >39 VLDL Cholesterol John 10 mg/dL 5-40 LDL Cholesterol Calc 72 mg/dL 0-99 Hepatitis Panel (4) - 05/21/16 14:49 HBsAg Screen Negative Negative Hep A Ab, IgM Negative Negative Hep B Core Ab, IgM Negative Negative Hep C Virus Ab >11.0 s/co ratio 0.0-0.9 Thyroid Stimulating Hormone - 08/28/17 12:52 TSH 1.09 mIU/mL 0.32-5.00 Urine Culture - 08/28/17 12:52 PRELIM CULTURE RESULTS No Growth 24 hours FINAL CULTURE RESULTS 10,000-20,000 Gram Positive Coag Neg Staph; Probable Skin Contaminant No Further Workup done MEDIA PLATED Setup at 13:44 on 08/28/2017 CULTURE SOURCE void Other Culture - 08/28/17 18:02 PRELIM CULTURE RESULTS Moderate Gram Positive LINDA / ID to Follow MEDIA PLATED Setup at 18:57 on 08/28/2017 Sensi - 08/28/17 18:02 FINAL CULTURE RESULTS Staphylococcus aureus (Isolate 1) Ampicillin/Sulbactam <=8/4 Ampicillin 8 Amoxicillin/K Clavulanate <=4/2 Ceftriaxone <=8 Clindamycin 2 Cefoxitin Screen <=4 Ciprofloxacin <=1 Daptomycin >4 Erythromycin <=0.5 Nitrofurantoin <=32 Gentamicin <=4 Gentamicin Synergy Screen N/R Inducible Clindamycin N/R Levofloxacin <=1 Linezolid <=1 Moxifloxacin <=0.5 Oxacillin <=0.25 Penicillin >8 Rifampin <=1 Streptomycin Synergy N/R Synercid 1 Trimethoprim/ Sulfamethoxazole <=0.5/9.5 Tetracycline <=4 Vancomycin >16 [facility] - 08/28/17 18:08 Anion Gap 19 6-14 BUN 13 mg/dL 5-25 Calcium 9.0 mg/dL 8.3-10.4 Chloride 83 mmol/L 95-114 CO2 25 mEq/L 22-33 Creat 0.75 mg/dL 0.50-1.50 eGFR 113 mL/min/1.73m2 >59 Glucose 83 mg/dL 70-110 Osmo 254 280-295 Potassium 3.6 mmol/L 3.5-5.3 Sodium 123 mmol/L 134-148 Ammonia - 08/28/17 19:09 Ammonia 115.00 ug/dL 31.00-123.00 Comprehensive Metabolic Panel - 08/29/17 06:25 Albumin 4.1 g/dL 3.6-5.1 ALP 49 U/L 35-130 ALT 23 U/L 6-45 Anion Gap 19 6-14 AST 25 U/L 2-40 BUN 15 mg/dL 5-25 Calcium 9.5 mg/dL 8.3-10.4 Chloride 82 mmol/L 95-114 CO2 26 mEq/L 22-33 Creat 0.81 mg/dL 0.50-1.50 eGFR 103 mL/min/1.73m2 >59 Globulin 2.6 g/dL 2.3-3.5 Glucose 87 mg/dL 70-110 Osmo 255 280-295 Potassium 4.0 mmol/L 3.5-5.3 Sodium 123 mmol/L 134-148 TBil 0.6 mg/dL 0.2-1.2 TP 6.7 g/dL 6.0-8.3 BMP - 08/29/17 15:54 Anion Gap 17 6-14 BUN 14 mg/dL 5-25 Calcium 9.8 mg/dL 8.3-10.4 Chloride 87 mmol/L 95-114 CO2 23 mEq/L 22-33 Creat 0.78 mg/dL 0.50-1.50 eGFR 108 mL/min/1.73m2 >59 Glucose 112 mg/dL 70-110 Osmo 256 280-295 Potassium 4.3 mmol/L 3.5-5.3 Sodium 123 mmol/L 134-148 Vancomycin Trough - 08/30/17 06:00 Vanco Trough 13.3 ug/mL 10.0-20.0 Lactic Acid - 09/14/17 13:42 Lactic Acid 8.1 mg/dL 4.5-19.8 Blood Culture - 09/14/17 13:42 PRELIM CULTURE RESULTS Blood Culture POSITIVE, Growth Day 1 [id number] Positive Cocci noted on Gram [id number] Testing Pending MEDIA PLATED Setup at 14:35 on 09/14/2017 Blood Culture Media Position C46 CULTURE SOURCE right [id number]\ Sensi - 09/14/17 13:42 FINAL CULTURE RESULTS Staphylococcus warneri (Isolate 1) Ampicillin/Sulbactam <=8/4 Ampicillin >8 Amoxicillin/K Clavulanate <=4/2 Ceftriaxone 32 Clindamycin >4 Cefoxitin Screen N/R Ciprofloxacin >2 Daptomycin <=0.5 Erythromycin >4 Nitrofurantoin <=32 Gentamicin >8 Gentamicin Synergy Screen N/R Inducible Clindamycin N/R Levofloxacin >4 Linezolid <=1 Moxifloxacin 4 Oxacillin >2 Penicillin >8 Rifampin <=1 Streptomycin Synergy N/R Synercid <=0.5 Trimethoprim/ Sulfamethoxazole >2/38 Tetracycline >8 Vancomycin 1 Blood Culture - 09/14/17 13:42 PRELIM CULTURE RESULTS Blood Culture POSITIVE, Growth Day 1 [id number] Positive Cocci noted on Gram [id number] Testing Pending MEDIA PLATED Setup at 14:35 on 09/14/2017 Blood Culture Media Position C46 CULTURE SOURCE right [id number]\ Sed Rate - 09/14/17 13:54 Sed Rate 29 mm/hr 0-9 C-Reactive Protein - 09/14/17 13:54 C-Reactive Protein 9.10 mg/dL 0.00-0.50 Blood Culture - 09/14/17 13:54 PRELIM CULTURE RESULTS Blood Culture Negative, No Growth Day 1 MEDIA PLATED Setup at 14:34 on 09/14/2017 Blood Culture Media Position C50 CULTURE SOURCE right AC IFOBT Occult Blood - 09/14/17 15:26 IFOBT Occult Blood NEGATIVE Negative HH - 09/14/17 16:08 Hct 27.8 % 42.0-52.0 Hgb 9.9 g/dL 14.0-17.0 Folate - 09/14/17 16:10 Folate 9.00 ng/mL 7.00-31.40 Reticulocyte Count - 09/14/17 16:10 Reticulocyte Count 1.2 % 0.6-2.6 Reticulocyte Count - 09/14/17 16:10 Reticulocyte Count 1.2 % 0.6-2.6 Urinalysis - 09/14/17 16:31 Icotest N/A Negative Urine Volume Urine Volume Sufficient (10mL) Urine Yeast No Yeast present Urine-Appearance Clear Clear Urine-Bacteria Negative Urine-Bilirubin Negative Negative Urine-Blood Trace-intact Negative Urine-Color Yellow Colorless-Lt. Yellow Urine-Glucose Negative Negative Urine-Ketones Negative Negative Urine-Leukocytes Negative Negative Urine-Nitrite Negative Negative Urine-Other Urine Saved if Culture Needed (48hrs from time of collection) Urine-pH 7.0 5-8.5 Urine-Protein Negative Negative Urine-RBC Few/HPF Urine-Specific [place] 1.010 1.000-1.030 Urine-WBC Negative Urobilinogen 2.0 E.U./dL 0.2-1.0 [facility] - 09/15/17 05:50 Anion Gap 16 6-14 BUN 14 mg/dL 5-25 Calcium 8.9 mg/dL 8.3-10.4 Chloride 88 mmol/L 95-114 CO2 24 mEq/L 22-33 Creat 0.80 mg/dL 0.50-1.50 eGFR 105 mL/min/1.73m2 >59 Glucose 98 mg/dL 70-110 Osmo 258 280-295 Potassium 4.0 mmol/L 3.5-5.3 Sodium 124 mmol/L 134-148 [facility] - 09/16/17 08:21 Anion Gap 16 6-14 BUN 10 mg/dL 5-25 Calcium 8.3 mg/dL 8.3-10.4 Chloride 94 mmol/L 95-114 CO2 21 mEq/L 22-33 Creat 0.77 mg/dL 0.50-1.50 eGFR 110 mL/min/1.73m2 >59 Glucose 108 mg/dL 70-110 Osmo 263 280-295 Potassium 4.3 mmol/L 3.5-5.3 Sodium 127 mmol/L 134-148 Blood Culture - 09/16/17 08:21 PRELIM CULTURE RESULTS Blood Culture Negative, No Growth Day 1 MEDIA PLATED Setup at 08:38 on 09/16/2017 Blood Culture Media Position A13 CULTURE SOURCE left foot Sed Rate - 09/18/17 07:16 Sed Rate 15 mm/hr 0-9 Encounters ACCT No. Visit Date/Time Discharge Status Pt. Type Provider Facility Loc./Unit Complaint [id number] 08/02/2014 09:39:00 08/02/2014 23:59:59 CLS Outpatient RACIEL BURROUGHS DO [id number] 08/02/2014 09:39:00 08/02/2014 23:59:59 CLS Outpatient RACIEL BURROUGHS DO [id number] 04/18/2014 11:06:00 04/18/2014 23:59:59 CLS Outpatient MELIZA THORNTON APRN [id number] 04/18/2014 11:06:00 04/18/2014 23:59:59 CLS Outpatient MELIZA THORNTON APRN [id number] 01/03/2014 11:38:00 01/03/2014 23:59:59 CLS Outpatient MELIZA THORNTON APRN [id number] 10/04/2013 10:40:00 10/04/2013 23:59:59 CLS Outpatient MELIZA THORNTON APRN [id number] 09/30/2013 10:53:00 09/30/2013 23:59:59 CLS Outpatient RACIEL BURROUGHS DO [id number] 08/23/2013 11:28:00 08/23/2013 23:59:59 CLS Outpatient MELIZA THORNTON APRN [id number] 08/23/2013 11:28:00 08/23/2013 23:59:59 CLS Outpatient MELIZA THORNTON APRN [id number] 06/07/2013 10:57:00 06/07/2013 23:59:59 CLS Outpatient GEN HERNANDEZ, YVES [id number] 12/09/2012 09:29:00 12/09/2012 23:59:59 CLS Outpatient MELIZA THORNTON APRN N [id number] 06/08/2012 11:34:00 06/08/2012 23:59:59 CLS Outpatient YVES BLEVINS MD [id number] 09/14/2017 12:14:00 Document Registration [id number] 08/29/2010 19:45:00 Document Registration [id number] 05/22/2016 13:06:00 Document Registration [id number] 04/26/2015 10:19:00 04/26/2015 12:00:00 DIS Outpatient SIENA PAEZ MD [facility] WOUNDCARE [id number] 04/10/2015 12:43:00 04/10/2015 23:59:59 CLS Outpatient SIENA PAEZ MD [facility] RAD PAD [id number] 09/18/2017 11:06:00 ACT Emergency VILLA GARCIA MD [facility] ER AMS [id number] 09/17/2017 09:26:00 PEN Preadmit CLAY BRENNAN MD [facility] WOUNDCARE [id number] 04/16/2012 23:32:00 Document Registration [id number] 02/18/2012 10:55:00 Document Registration [id number] 01/10/2011 00:00:00 Document Registration [id number] 12/10/2010 00:00:00 Document Registration [id number] 11/04/2010 12:05:00 Document Registration [id number] 11/03/2010 14:53:00 Document Registration [id number] 10/03/2010 15:10:00 Document Registration [id number] 09/10/2010 09:38:00 Document Registration [id number] 09/04/2010 14:30:00 Document Registration [id number] 09/01/2010 11:50:00 Document Registration [id number] 08/12/2010 19:14:00 Document Registration [id number] 09/01/2017 15:20:00 09/01/2017 23:59:59 CLS Out[facility] [id number] 08/28/2017 12:01:00 08/30/2017 14:50:00 DIS Inpatient Tanner PabloAndrzej [facility] MED-SURG [id number] 12/05/2016 03:10:00 12/05/2016 04:42:00 DIS Outpatient BRIDGER LAWRENCE [facility] ER [id number] 09/14/2017 12:14:00 ACT Inpatient Juliana Buckner [facility] MED-SURG [id number] 12/05/2016 03:31:06 Document Registration [id number] 09/16/2017 10:21:00 Document Registration
--- NOTE | 2017-09-18 11:32 | ED General ---
General Chief Complaint: Overdose Stated Complaint: AMS Source of Information: Patient, EMS Exam Limitations: No Limitations History of Present Illness Date Seen by Provider: September 18, 2017 Time Seen by Provider: 11:27 Initial Comments This 42-year-old white male presents after inadvertently receiving 10 mg of Versed IV while transferring to [facility] by EMS. The patient is obtunded. The paramedics were asked to stop in the emergency department for an acute evaluation before the patient was transferred upstairs for further evaluation and treatment of a severe right foot infection. Patient's been admitted to Dr. Roberts. Allergies and Home Medications Allergies Coded Allergies: Latex (Unverified Allergy, Intermediate, 08/12/10) Chlorpromazine HCl (Unverified Allergy, Mild, 08/12/10) Haloperidol (Unverified Allergy, Mild, 08/12/10) Haloperidol Lactate (Unverified Allergy, Mild, 08/12/10) Patient Home Medication List Home Medication List Reviewed: Yes Review of Systems Constitutional: no symptoms reported EENTM: no symptoms reported Respiratory: No cough Cardiovascular: No chest pain Gastrointestinal: No abdominal pain, No vomiting Genitourinary: no symptoms reported Musculoskeletal: no symptoms reported Skin: no symptoms reported Psychiatric/Neurological: Other (decreased level of consciousness from IV benzodiazepines.) Hematologic/Lymphatic: No Symptoms Reported Immunological/Allergic: no symptoms reported Past Bwtflof-Ypbtba-Bgkrkm Hx Past Med/Social Hx: Reviewed Nursing Past Med/Soc Hx Past Medical History Reproductive Disorders: No Physical Exam Vital Signs Vital Signs - First Documented 09/18/17 11:10 Pulse 68 Resp 12 B/P (MAP) 151/97 (115) O2 Delivery Room Air Capillary Refill : General Appearance: Other (the patient is obtunded but able to handle his own airway.) Eyes: Bilateral Eye Normal Inspection HEENT: PERRL/EOMI, Normal ENT Inspection Neck: Supple Respiratory: Lungs Clear Cardiovascular: Regular Rate, Rhythm Gastrointestinal: Normal Bowel Sounds Back: Normal Inspection Extremity: Normal Range of Motion Neurologic/Psychiatric: Other (patient's obtunded. But able to handle his own airway.) Skin: Normal Color, Warm/Dry Progress/Results/Core Measures Suspected Sepsis SIRS Temperature: Pulse: Respiratory Rate: Blood Pressure / Mean: Results/Orders My Orders Orders - VILLA GARCIA MD Iv 1000 Ml (Sodium Chloride 0.9%) (09/18/17 11:08) Vital Signs/I&O 09/18/17 11:10 Pulse 68 Resp 12 B/P (MAP) 151/97 (115) O2 Delivery Room Air Capillary Refill : Progress Note : Time: 11:42 Progress Note It was felt prudent to observe the patient in the ICU with frequent vital signs and neuro checks until he was awake and alert at which point we'll transfer him to his room (420) as planned. I visited with Dr. Roberts who is in agreement with this plan. Departure Communication (Admissions) Time/Spoke to Admitting Phy: 11:45 Dr. Roberts Impression Primary Impression: Infection of right foot Additional Impression: Benzodiazepine overdose Qualified Codes: T42.4X1A - Poisoning by benzodiazepines, accidental ( unintentional), initial encounter Disposition: ADMITTED INPATIENT Condition: Unchanged Admissions Decision to Admit Reason: Admit from ER (General) Decision to Admit/Date: September 18, 2017 Time/Decision to Admit Time: 11:48 Departure-Patient Inst. Referrals: RACIEL BURROUGHS DO (PCP) Primary Care Physician ANIL KHOURY (Family) Primary Care Physician Patient Instructions: ALCOHOL AND SUBSTANCE ABUSE VILLA GARCIA MD September 18, 2017 11:32
--- OUTSIDE RECORDS SUMMARY | 2017-09-18 11:57 | XMS REPORT | Clinical Summary ---
Author Author [facility] Organization [facility] Address Unknown Phone Unavailable Care Team Providers Care Instructional Technology Coach Name Role Phone PP Unavailable Allergies Active [...] Problem Noted Date Schizoaffective disorder, depressive type ([facility]) 03/04/2012 Mood disorder ([facility]) 03/02/2012 Social History Tobacco Use Types Packs/Day [...]
--- OUTSIDE RECORDS SUMMARY | 2017-09-18 12:07 | XMS REPORT | Continuity of Care Document ---
Author Author Formerly [facility] Address Unknown Phone Unavailable Allergies Active Description Code Type Severity Reaction Onset Reported/Identified Relationship to Patient Clinical Status Yes FLUORESCEIN UNKNOWN UNKNOWN Yes HALDOL UNKNOWN UNKNOWN Yes LATEX, NATURAL RUBBER UNKNOWN UNKNOWN Yes Haldol Drug Allergy N/A N/A 07/22/2008 Yes Haldol Drug Allergy 07/22/2008 Yes latex [id number] Drug Allergy Moderate N/A 08/12/2010 Yes chlorpromazine HCl [id number] Drug Allergy Mild N/A 08/12/2010 Yes haloperidol [id number] Drug Allergy Mild N/A 08/12/2010 Yes Haloperidol Lactate [id number] Drug Allergy Mild N/A 08/12/2010 Yes Thorazine [...] FELIX N 250.00 DIABETES MELLITUS 12/29/2007 YVES LBEVINS MD 250.00 DIABETES MELLITUS 12/29/2007 GOLDBERG NGUYEN [...] K 250.00 DIABETES MELLITUS 12/29/2007 BURROUGHS DO, RACIEL K 250.00 DIABETES MELLITUS 10/16/2008 YVES BLEVINS MD 250.60 DIABETES MELLITUS [...] N 250.6 NEUROPATHY DIABETIC 10/31/2008 GOLDBERG CASHERO WAREHOUSE PROCESSOR, MELIZA N 250.6 NEUROPATHY DIABETIC 10/31/2008 BURROUGHS DO, RACIEL K 250.6 NEUROPATHY DIABETIC 10/31/2008 GOLDBERG CASHERO WAREHOUSE PROCESSOR, MELIZA N 250.6 NEUROPATHY DIABETIC 10/31/2008 GOLDBERG CASHERO WAREHOUSE PROCESSOR, MELIZA N 250.6 NEUROPATHY DIABETIC 10/31/2008 GOLDBERG CASHERO WAREHOUSE PROCESSOR, MELIZA N 250.6 NEUROPATHY DIABETIC 10/31/2008 GOLDBERG LAKSHMIERO WAREHOUSE PROCESSOR, MELIZA N 250.6 NEUROPATHY DIABETIC 10/31/2008 BURROUGHS DO, RACIEL K 250.6 NEUROPATHY DIABETIC 10/31/2008 BURROUGHS DO, RACIEL K 250.6 NEUROPATHY DIABETIC 01/12/2009 YVES BLEVINS MD 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 01/12/2009 ASHLYN CEDILLO APRN, MELIZA N 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 01/12/2009 YVES BLEVINS MD 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 01/12/2009 ASHLYN CEDILLO ELVIRA, MELIZA N 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 01/12/2009 GOLDBERG LAKSHMIERO WAREHOUSE PROCESSOR, MELIZA N 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 01/12/2009 BURROUGHS DO, RACIEL K 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 01/12/2009 ASHLYN MARTINSERO WAREHOUSE PROCESSOR, MELIZA N 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 01/12/2009 ASHLYN MARTINSERO WAREHOUSE PROCESSOR, MELIZA N 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 01/12/2009 GOLDBERG CASHERO WAREHOUSE PROCESSOR, MELIZA N 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 01/12/2009 GOLDBERG LAKSHMIERO WAREHOUSE PROCESSOR, MELIZA N 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 01/12/2009 BURROUGHS [...] 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 04/13/2009 GOLDBERG CASHANGELLA WAREHOUSE PROCESSOR, MELIZA N 309.0 ADJUSTMENT DISORDER WITH DEPRESSED MOOD 04/13/2009 GOLDBERG CASHERO WAREHOUSE PROCESSOR, MELIZA N 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 04/13/2009 GOLDBERG CASHERO WAREHOUSE PROCESSOR, MELIZA N 309.0 ADJUSTMENT DISORDER WITH DEPRESSED MOOD 04/13/2009 GOLDBERG CASHERO WAREHOUSE PROCESSOR, MELIZA N 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 04/13/2009 BURROUGHS DO, RACIEL K 309.0 ADJUSTMENT DISORDER WITH DEPRESSED MOOD 04/13/2009 BURROUGHS DO, RACIEL K 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 04/13/2009 GOLDBERG CASHERO WAREHOUSE PROCESSOR, MELIZA N 309.0 ADJUSTMENT DISORDER WITH DEPRESSED MOOD 04/13/2009 GOLDBERG CASHERO WAREHOUSE PROCESSOR, MELIZA N 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 04/13/2009 GOLDBERG CASHERO WAREHOUSE PROCESSOR, MELIZA N 309.0 ADJUSTMENT DISORDER WITH DEPRESSED MOOD 04/13/2009 GOLDBERG CASHERO WAREHOUSE PROCESSOR, MELIZA N 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 04/13/2009 GOLDBERG CASHERO WAREHOUSE PROCESSOR, MELIZA N 309.0 ADJUSTMENT DISORDER WITH DEPRESSED MOOD 04/13/2009 GOLDBERG CASHERO WAREHOUSE PROCESSOR, MELIZA N 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 04/13/2009 GOLDBERG CASHERO WAREHOUSE PROCESSOR, MELIZA N 309.0 ADJUSTMENT DISORDER WITH DEPRESSED MOOD 04/13/2009 GOLDBERG CASHERO WAREHOUSE PROCESSOR, MELIZA N 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 04/13/2009 BURROUGHS DO, RACIEL K 309.0 ADJUSTMENT DISORDER WITH DEPRESSED MOOD 04/13/2009 BURROUGHS DO, RACIEL K 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 04/13/2009 BURROUGHS DO, RACIEL K 309.0 ADJUSTMENT DISORDER WITH DEPRESSED MOOD 04/13/2009 BURROUGHS DO, RACIEL K 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 01/07/2010 YVES BLEVINS MD 535.50 GASTRITIS UNSPEC 01/07/2010 GOLDBERG CASHERO WAREHOUSE PROCESSOR, MELIZA N 535.50 GASTRITIS UNSPEC 01/07/2010 YVES BLEVINS MD 535.50 GASTRITIS UNSPEC 01/07/2010 GOLDBERG CASHERO WAREHOUSE PROCESSOR, MELIZA N 535.50 GASTRITIS UNSPEC 01/07/2010 GOLDBERG CASHERO WAREHOUSE PROCESSOR, MELIZA N 535.50 GASTRITIS UNSPEC 01/07/2010 BURROUGHS DO, RACIEL K 535.50 GASTRITIS UNSPEC 01/07/2010 GOLDBERG CASHERO WAREHOUSE PROCESSOR, MELIZA N 535.50 GASTRITIS UNSPEC 01/07/2010 GOLDBERG CASHERO WAREHOUSE PROCESSOR, MELIZA N 535.50 GASTRITIS UNSPEC 01/07/2010 GOLDBERG CASHERO WAREHOUSE PROCESSOR, MELIZA N 535.50 GASTRITIS UNSPEC 01/07/2010 GOLDBERG CASHERO WAREHOUSE PROCESSOR, MELIZA N 535.50 GASTRITIS UNSPEC 01/07/2010 BURROUGHS DO, RACIEL K 535.50 GASTRITIS UNSPEC 01/07/2010 BURROUGHS DO, RACIEL K 535.50 GASTRITIS UNSPEC 07/19/2010 YVES BLEVINS MD 296.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 07/19/2010 YVES BLEVINS MD2.9 CELLULITIS 07/19/2010 GOLDBERG CASHERO WAREHOUSE PROCESSOR, MELIZA N 296.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 07/19/2010 GOLDBERG CASHERO WAREHOUSE PROCESSOR, MLEIZA N 682.9 CELLULITIS 07/19/2010 YVES BLEVINS MD 296.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 07/19/2010 YVES BLEVINS MD 682.9 CELLULITIS 07/19/2010 GOLDBERG CASHERO WAREHOUSE PROCESSOR, MELIZA N 296.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 07/19/2010 GOLDBERG CASHERO WAREHOUSE PROCESSOR, MELIZA N 682.9 CELLULITIS 07/19/2010 GOLDBERG CASHERO WAREHOUSE PROCESSOR, MELIZA N 296.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 07/19/2010 GOLDBERG CASHERO WAREHOUSE PROCESSOR, MELIZA N 682.9 CELLULITIS 07/19/2010 BURROUGHS DO, RACIEL K 296.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 07/19/2010 BURROUGHS DO, RACIEL K 682.9 CELLULITIS 07/19/2010 GOLDBERG CASHERO WAREHOUSE PROCESSOR, MELIZA N 296.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 07/19/2010 GOLDBERG CASHERO WAREHOUSE PROCESSOR, MELIZA N 682.9 CELLULITIS 07/19/2010 GOLDBERG CASHERO WAREHOUSE PROCESSOR, MELIZA N 296.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 07/19/2010 GOLDBERG CASHERO WAREHOUSE PROCESSOR, MELIZA N 682.9 CELLULITIS 07/19/2010 GOLDBERG CASHERO WAREHOUSE PROCESSOR, MELIZA N 296.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 07/19/2010 GOLDBERG CASHERO WAREHOUSE PROCESSOR, MELIZA N 682.9 CELLULITIS 07/19/2010 GOLDBERG CASHERO WAREHOUSE PROCESSOR, MELIZA N 296.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 07/19/2010 [...] WOUND OPEN LOWER LIMB 10/28/2010 ASHLYN CEDILLO WAREHOUSE PROCESSOR, MELIZA N 894.0 WOUND OPEN LOWER LIMB [...] K NODX NO DIAGNOSIS 08/28/2011 ASHLYN CEDILLO WAREHOUSE PROCESSOR, MELIZA N NODX NO DIAGNOSIS 08/28/2011 ASHLYN CEDILLO APRN, MELIZA N NODX NO DIAGNOSIS 08/28/2011 ASHLYN ECDILLO WAREHOUSE PROCESSOR, MELIZA N NODX NO DIAGNOSIS 08/28/2011 ASHLYN CEDILLO WAREHOUSE PROCESSOR, MELIZA N NODX NO DIAGNOSIS 08/28/2011 BURROUGHS DO, RACIEL K NODX NO DIAGNOSIS 08/28/2011 BURROUGHS DO, RACIEL K NODX NO DIAGNOSIS 09/01/2011 YVES BLEVINS MD 295.70 P SCHIZO AFFECTIVE 09/01/2011 YVES BLEVINS MD V58.69 MEDICATION HIGH RISK 09/01/2011 GOLDBERG CASHERO WAREHOUSE PROCESSOR, MELIZA N 295.70 P SCHIZO AFFECTIVE 09/01/2011 GOLDBERG CASHERO WAREHOUSE PROCESSOR, MELIZA N V58.69 MEDICATION HIGH RISK 09/01/2011 YVES BLEVINS MD 295.70 P SCHIZO AFFECTIVE 09/01/2011 YVES BLEVINS MD V58.69 MEDICATION HIGH RISK 09/01/2011 GOLDBERG CASHERO WAREHOUSE PROCESSOR, MELIZA N 295.70 P SCHIZO AFFECTIVE 09/01/2011 GOLDBERG CASHERO WAREHOUSE PROCESSOR, MELIZA N V58.69 MEDICATION HIGH RISK 09/01/2011 GOLDBERG CASHERO WAREHOUSE PROCESSOR, MELIZA N 295.70 P SCHIZO AFFECTIVE 09/01/2011 GOLDBERG CASHERO WAREHOUSE PROCESSOR, MELIZA N V58.69 MEDICATION HIGH RISK 09/01/2011 BURRUOGHS DO, RACIEL K 295.70 P SCHIZO AFFECTIVE 09/01/2011 BURROUGHS DO, RACIEL K V58.69 MEDICATION HIGH RISK 09/01/2011 GOLDBERG CASHERO WAREHOUSE PROCESSOR, MELIZA N 295.70 P SCHIZO AFFECTIVE 09/01/2011 GOLDBERG CASHERO WAREHOUSE PROCESSOR, MELIZA N V58.69 MEDICATION HIGH RISK 09/01/2011 GOLDBERG CASHERO WAREHOUSE PROCESSOR, MELIZA N 295.70 P SCHIZO AFFECTIVE 09/01/2011 GOLDBERG CASHERO WAREHOUSE PROCESSOR, MELIZA N V58.69 MEDICATION HIGH RISK 09/01/2011 GOLDBERG CASHERO WAREHOUSE PROCESSOR, MELIZA N 295.70 P SCHIZO AFFECTIVE 09/01/2011 GOLDBERG CASHERO WAREHOUSE PROCESSOR, MELIZA N V58.69 MEDICATION HIGH RISK 09/01/2011 GOLDBERG CASHERO WAREHOUSE PROCESSOR, MELIZA N 295.70 P SCHIZO AFFECTIVE 09/01/2011 GOLDBERG CASHERO WAREHOUSE PROCESSOR, MELIZA N V58.69 MEDICATION HIGH RISK 09/01/2011 [...] N 356.9 UNSPECIFIED IDIOPATHIC PERIPHERAL NEUROPATHY 06/08/2012 VYES BLEVINS MD 250.03 DIABETES MELLITUS WITHOUT MENTION OF COMPLICATION TYPE I [JUVENILE TYPE] UNCONTROLLED 06/08/2012 YVES BLEVINS MD 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 06/08/2012 YVES BLEVINS MD 356.9 UNSPECIFIED IDIOPATHIC PERIPHERAL NEUROPATHY 06/08/2012 GOLDBERG NGUYEN FELIX, MELIZA N 250.03 DIABETES MELLITUS WITHOUT MENTION OF COMPLICATION TYPE I [ JUVENILE TYPE] UNCONTROLLED 06/08/2012 GOLDBERG CASHERO WAREHOUSE PROCESSOR, MELIZA N 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 06/08/2012 GOLDBERG NGUYEN FELIX, MELIZA N 356.9 UNSPECIFIED IDIOPATHIC PERIPHERAL NEUROPATHY 06/08/2012 GOLDBERG CASHANGELLA FELIX, MELIZA N 250.03 DIABETES MELLITUS WITHOUT MENTION OF COMPLICATION TYPE I [ JUVENILE TYPE] UNCONTROLLED 06/08/2012 GOLDBERG CASHANGELLA WAREHOUSE PROCESSOR, MELIZA N 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 06/08/2012 GOLDBERG CASHERO WAREHOUSE PROCESSOR, MELIZA N 356.9 UNSPECIFIED IDIOPATHIC PERIPHERAL NEUROPATHY 06/08/2012 BURROUGHS DO, RACIEL K 250.03 DIABETES MELLITUS WITHOUT MENTION OF COMPLICATION TYPE I [JUVENILE TYPE] UNCONTROLLED 06/08/2012 BURROUGHS DO, RACIEL K 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 06/08/2012 BURROUGHS DO, RACIEL K 356.9 UNSPECIFIED IDIOPATHIC PERIPHERAL NEUROPATHY 06/08/2012 GOLDBERG CASHANGELLA WAREHOUSE PROCESSOR, MELIZA N 250.03 DIABETES MELLITUS WITHOUT MENTION OF COMPLICATION TYPE I [ JUVENILE TYPE] UNCONTROLLED 06/08/2012 GOLDBERG CASHANGELLA WAREHOUSE PROCESSOR, MELIZA N 305.90 OTHER MIXED OR UNSPECIFIED [...] UNSPECIFIED IDIOPATHIC PERIPHERAL NEUROPATHY 12/09/2012 ASHLYN MARTINSANGELLA WAREHOUSE PROCESSORMELIZA Bruce N 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 [...] CANNABIS ABUSE CONTINUOUS USE 12/09/2012 ASHLYN MARTINSERO WAREHOUSE PROCESSOR, MELIZA N 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 [...] 700 CORNS AND CALLOSITIES 08/23/2013 GOLDBERGMARCELLO CEDILLO WAREHOUSE PROCESSOR, MELIZA N 707.15 ULCER OF OTHER PART OF FOOT 08/23/2013 BURROUGHS DO, RACIEL K 110.4 DERMATOPHYTOSIS OF FOOT 08/23/2013 BURROUGHS DO, RACIEL K 700 CORNS AND CALLOSITIES 08/23/2013 BURROUGHS DO, RACIEL K 707.15 ULCER OF OTHER PART OF FOOT 08/23/2013 ASHLYN MARTINSANGELLA WAREHOUSE PROCESSOR, MELIZA N 110.4 DERMATOPHYTOSIS OF FOOT 08/23/2013 ASHLYN MARTINSERO WAREHOUSE PROCESSOR, MELIZA N 700 CORNS AND CALLOSITIES 08/23/2013 GOLDBERG NGUYEN WAREHOUSE PROCESSOR, MELIZA N 707.15 ULCER OF OTHER PART OF FOOT 08/23/2013 ASHLYN MARTINSANGELLA WAREHOUSE PROCESSOR, MELIZA N 110.4 DERMATOPHYTOSIS OF FOOT 08/23/2013 ASHLYN CEDILLO WAREHOUSE PROCESSOR, MELIZA N 700 CORNS AND CALLOSITIES 08/23/2013 GOLDBERG CASHERO WAREHOUSE PROCESSOR, MELIZA N 707.15 ULCER OF OTHER PART OF FOOT 08/23/2013 ASHLYN CEDILLO WAREHOUSE PROCESSOR, MELIZA N 110.4 DERMATOPHYTOSIS OF FOOT 08/23/2013 GOLDBERG LAKSHMIERO WAREHOUSE PROCESSOR, MELIZA N 700 CORNS AND CALLOSITIES 08/23/2013 GOLDBERG LAKSHMIERO WAREHOUSE PROCESSOR, MELIZA N 707.15 ULCER OF OTHER PART OF FOOT 08/23/2013 ASHLYN CEDILLO APRN, MELIZA N 110.4 DERMATOPHYTOSIS OF FOOT 08/23/2013 GOLDBERG LAKSHMIERO WAREHOUSE PROCESSOR, MELIZA N 700 CORNS AND CALLOSITIES 08/23/2013 GOLDBERG LAKSHMIERO WAREHOUSE PROCESSOR, MELIZA N 707.15 ULCER OF OTHER PART [...] OTHER PART OF FOOT 09/30/2013 BURROUGHS DO, RAICEL K 110.1 ONYCHOMYCOSIS 09/30/2013 ASHLYN CEDILLO WAREHOUSE PROCESSOR, MELIZA N 110.1 ONYCHOMYCOSIS 09/30/2013 ASHLYN CEDILLO WAREHOUSE PROCESSOR, MELIZA N 110.1 ONYCHOMYCOSIS 09/30/2013 ASHLYN CEDILLO WAREHOUSE PROCESSOR, MELIZA N 110.1 ONYCHOMYCOSIS 09/30/2013 ASHLYN MARTINSERO WAREHOUSE PROCESSOR, MELIZA N 110.1 ONYCHOMYCOSIS 09/30/2013 BURROUGHS DO, RACIEL K 110.1 ONYCHOMYCOSIS 09/30/2013 BURROUGHS DO, RACIEL K 110.1 ONYCHOMYCOSIS 01/03/2014 GOLDBERG LAKSHMIERO WAREHOUSE PROCESSOR, MELIZA N 724.3 SCIATICA 01/03/2014 GOLDBERG LAKSHMIERO WAREHOUSE PROCESSOR, MELIZA N 724.3 SCIATICA 01/03/2014 GOLDBERG LAKSHMIERO WAREHOUSE PROCESSOR, MELIZA N 724.3 SCIATICA 01/03/2014 BURROUGHS DO, [...] MD Ot I10 04/26/2015 PHILIPPE HERNANDEZ, SIENA Carr Ot I70.203 04/26/2015 PHILIPPE HERNANDEZ, SIENA Carr [...] SIENA PAEZ MD Ot I70.203 UNSP ATHSCL [place] PASS ARTERIES OF EXTREMITI 01/29/2016 SIENA PAEZ MD [...] Pablo, Berenice-Andrzej W R05 COUGH 08/30/2017 Pablo, Berenice-Andrzej W 276.1 HYPOSMOLALITY AND/OR HYPONATREMIA 08/30/2017 Pablo, [...] W 276.1 HYPOSMOLALITY AND/OR HYPONATREMIA 09/14/2017 Lenore uBcknera W 681.10 CELLULITIS AND ABSCESS OF TOE, [...] Juliana W E87.1 HYPO-OSMOLALITY AND HYPONATREMIA 09/14/2017 Dudley, Juliana W F20 SCHIZOPHRENIA 09/14/2017 Dudley, Juliana [...] Procedures Code Description [place] [address] A1C (IN-HOUSE) 06/08/2012 PODIATRY BREANA HAWTHORNEIN 06/11/2013 67774 A1C (IN-HOUSE) 08/23/2013 04044 DEBRIDE NAIL 1-5 09/30/2013 12033 AMERITOX 10/04/2013 Physical Physical Therapy 01/03/2014 32662 CMP 04/18/2014 47851 LIPID PANEL 04/18/2014 96184 VIT B 12 04/18/2014 54502 VITAMIN D I-25 DIHYDROXY 04/18/2014 21796 A1C (IN-HOUSE) 04/18/2014 30225 TSH 04/18/2014 32771 CBC 04/18/2014 53519 A1C (IN-HOUSE) 08/02/2014 Results Test Result Range [...] Trimethoprim/ Sulfamethoxazole <=0.5/9.5 Tetracycline <=4 Vancomycin >16 [facility] - 08/28/17 18:08 Anion Gap [...] RESULTS Blood Culture POSITIVE, Growth Day 1 [id number] Positive Cocci noted on Gram [id number] Testing Pending MEDIA PLATED Setup at 14:35 on 09/14/2017 Blood Culture Media Position C46 CULTURE SOURCE right [id number]\ Sensi - 09/14/17 13:42 FINAL CULTURE RESULTS [...] RESULTS Blood Culture POSITIVE, Growth Day 1 [id number] Positive Cocci noted on Gram [id number] Testing Pending MEDIA PLATED Setup at 14:35 on 09/14/2017 Blood Culture Media Position C46 CULTURE SOURCE right [id number]\ Sed Rate - 09/14/17 13:54 Sed Rate [...] 5-8.5 Urine-Protein Negative Negative Urine-RBC Few/HPF Urine-Specific [place]ston 1.010 1.000-1.030 Urine-WBC Negative Urobilinogen 2.0 E.U./dL 0.2-1.0 [facility] - 09/15/17 05:50 Anion Gap 16 6-14 BUN 14 mg/dL 5-25 Calcium 8.9 mg/dL 8.3-10.4 Chloride 88 mmol/L 95-114 CO2 24 mEq/L 22-33 Creat 0.80 mg/dL 0.50-1.50 eGFR 105 mL/min/1.73m2 >59 Glucose 98 mg/dL 70-110 Osmo 258 280-295 Potassium 4.0 mmol/L 3.5-5.3 Sodium 124 mmol/L 134-148 [facility] - 09/16/17 08:21 Anion Gap [...] Status Pt. Type Provider Facility Loc./Unit Complaint [id number] 08/02/2014 09:39:00 08/02/2014 23:59:59 CLS Outpatient RACIEL BURROUGHS DO [id number] 08/02/2014 09:39:00 08/02/2014 23:59:59 CLS Outpatient RACIEL BURROUGHS DO [id number] 04/18/2014 11:06:00 04/18/2014 23:59:59 CLS Outpatient MELIZA THORNTON APRN [id number] 04/18/2014 11:06:00 04/18/2014 23:59:59 CLS Outpatient MELIZA THORNTON APRN [id number] 01/03/2014 11:38:00 01/03/2014 23:59:59 CLS Outpatient MELIZA THORNTON APRN [id number] 10/04/2013 10:40:00 10/04/2013 23:59:59 CLS Outpatient MELIZA THORNTON APRN [id number] 09/30/2013 10:53:00 09/30/2013 23:59:59 CLS Outpatient RACIEL BURROUGHS DO [id number] 08/23/2013 11:28:00 08/23/2013 23:59:59 CLS Outpatient MELIZA THORNTON APRN [id number] 08/23/2013 11:28:00 08/23/2013 23:59:59 CLS Outpatient MELIZA THORNTON APRN [id number] 06/07/2013 10:57:00 06/07/2013 23:59:59 CLS Outpatient GEN HERNANDEZ, YVES [id number] 12/09/2012 09:29:00 12/09/2012 23:59:59 CLS Outpatient MELIZA THORNTON APRN N [id number] 06/08/2012 11:34:00 06/08/2012 23:59:59 CLS Outpatient YVES BLEVINS MD [id number] 09/14/2017 12:14:00 Document Registration [id number] 08/29/2010 19:45:00 Document Registration [id number] 05/22/2016 13:06:00 Document Registration [id number] 04/26/2015 10:19:00 04/26/2015 12:00:00 DIS Outpatient SIENA PAEZ MD [facility] WOUNDCARE [id number] 04/10/2015 12:43:00 04/10/2015 23:59:59 CLS Outpatient SIENA PAEZ MD [facility] RAD PAD [id number] 09/18/2017 11:20:00 ACT Inpatient KRISTINA RODRÍGUEZ MD [facility] ICU FOOT INFECTION EXCESS BENZODIAZIPAN ADMIN [id number] 09/17/2017 09:26:00 PEN Preadmit CLAY BRENNAN MD [facility] WOUNDCARE [id number] 04/16/2012 23:32:00 Document Registration [id number] 02/18/2012 10:55:00 Document Registration [id number] 01/10/2011 00:00:00 Document Registration [id number] 12/10/2010 00:00:00 Document Registration [id number] 11/04/2010 12:05:00 Document Registration [id number] 11/03/2010 14:53:00 Document Registration [id number] 10/03/2010 15:10:00 Document Registration [id number] 09/10/2010 09:38:00 Document Registration [id number] 09/04/2010 14:30:00 Document Registration [id number] 09/01/2010 11:50:00 Document Registration [id number] 08/12/2010 19:14:00 Document Registration [id number] 09/01/2017 15:20:00 09/01/2017 23:59:59 CLS Outpatient YVES BLEVINS MD [facility] [id number] 08/28/2017 12:01:00 08/30/2017 14:50:00 DIS Inpatient Samy BereniceMaríaAndrzej [facility] MED-SURG [id number] 12/05/2016 03:10:00 12/05/2016 04:42:00 DIS Outpatient HOWARD BRIDGER [facility] ER [id number] 09/14/2017 12:14:00 ACT Inpatient Juliana Buckner [facility] MED-SURG [id number] 12/05/2016 03:31:06 Document Registration [id number] 09/16/2017 10:21:00 Document Registration
[2017-09-18] MEDS ORDERED: VANCOMYCIN INJECTION 2,500 MG in NS IV 500 ML 500 ML IV NR (12:58)
[2017-09-18] MEDS: ENOXAPARIN 40 MG/0.4 ML (LOVENOX) SYR SC SCH (13:23)
[2017-09-18] MEDS: cefTRIAXone INJECTION 1,000 MG in NS (IVPB) 50 ML IV SCH (13:23)
[2017-09-18] MEDS ORDERED: CATHETER FLUSH 10 ML SYR IV PRN (13:45)
[2017-09-18] MEDS ORDERED: FLUMAZENIL (ROMAZICON) 0.1 MG/ML 5 ML VIAL IV PRN (13:45)
[2017-09-18] MEDS: CATHETER FLUSH 10 ML SYR IV SCH ×2 (13:47→22:09)
[2017-09-18 13:49] LABS: BASOPHILS # (AUTO) 0.1 10^3/uL (0.0-0.1); BASOPHILS % (AUTO) 1 % (0-10); EOSINOPHILS # (AUTO) 0.2 10^3/uL (0.0-0.3); EOSINOPHILS % (AUTO) 4 % (0-10); HEMATOCRIT 28 % (40-54); HEMOGLOBIN 9.6 G/DL (13.3-17.7); LYMPHOCYTES # (AUTO) 1.8 X 10^3 (1.0-4.0); LYMPHOCYTES % (AUTO) 38 % (12-44); MEAN CORPUSCULAR HEMOGLOBIN 34 PG (25-34); MEAN CORPUSCULAR HGB CONC 34 G/DL (32-36); MEAN CORPUSCULAR VOLUME 99 FL (80-99); MONOCYTES # (AUTO) 0.9 X 10^3 (0.0-1.0); MONOCYTES % (AUTO) 20 % (0-12); NEUTROPHILS # (AUTO) 1.7 X 10^3 (1.8-7.8); NEUTROPHILS % (AUTO) 37 % (42-75); PLATELET COUNT 286 10^3/uL (130-400); RED BLOOD COUNT 2.85 10^6/uL (4.35-5.85); RED CELL DISTRIBUTION WIDTH 12.5 % (10.0-14.5); WHITE BLOOD COUNT 4.7 10^3/uL (4.3-11.0)
[2017-09-18] MEDS ORDERED: HYDR-87 PO (14:09)
[2017-09-18] MEDS ORDERED: AMIT75TA2 PO (14:09)
[2017-09-18] MEDS ORDERED: RANI150T11 PO (14:09)
[2017-09-18] MEDS ORDERED: DULO60CA58 PO (14:09)
[2017-09-18] MEDS ORDERED: METF10002 PO (14:09)
[2017-09-18] MEDS ORDERED: METO-370 PO (14:09)
[2017-09-18] MEDS ORDERED: ROPI3TAB2 PO (14:09)
[2017-09-18] MEDS ORDERED: BENZ1TAB6 PO (14:09)
[2017-09-18] MEDS ORDERED: LISI1TAB10 PO (14:09)
[2017-09-18] MEDS ORDERED: DIVA500T7 PO (14:09)
[2017-09-18] MEDS ORDERED: AMLO10TA2 PO (14:09)
[2017-09-18] MEDS ORDERED: PALI6TAB PO (14:09)
[2017-09-18] MEDS ORDERED: PIOG45TA18 PO (14:09)
[2017-09-18] MEDS ORDERED: PREG150C PO (14:09)
[2017-09-18 14:11] LABS: ALANINE AMINOTRANSFERASE 15 U/L (0-55); ALBUMIN 3.5 GM/DL (3.2-4.5); ALKALINE PHOSPHATASE 41 U/L (40-136); BILIRUBIN,TOTAL 0.3 MG/DL (0.1-1.0); BUN/CREATININE RATIO 7; CALCIUM 8.6 MG/DL (8.5-10.1); CARBON DIOXIDE 23 MMOL/L (21-32); CHLORIDE 96 MMOL/L (98-107); CREATININE SERUM 0.69 MG/DL (0.60-1.30); EOSINOPHILS % (MANUAL) 6 %; GFR ESTIMATED > 60; GLUCOSE 69 MG/DL (70-105); LYMPHOCYTES % (MANUAL) 32 %; MONOCYTES % (MANUAL) 12 %; NEUTROPHILS % (MANUAL) 50 %; POTASSIUM 4.6 MMOL/L (3.6-5.0); RBC MORPH NORMAL; SODIUM 128 MMOL/L (135-145); TOTAL PROTEIN 5.7 GM/DL (6.4-8.2)
[2017-09-18] MEDS ORDERED: RT-ALBUINH IH (15:15)
[2017-09-18] MEDS: LORazepam 1 MG (ATIVAN) TAB PO PRN ×2 (16:42→21:54)
--- NOTE | 2017-09-18 17:18 | Wound Care Assessment ---
Wound Care Assessment Date Seen by Provider: September 18, 2017 Time Seen by Provider: 17:13 Chief Complaint R foot infection with ulceration. HPI The patient is a 42 year old male transferred from [place] with an infected R foot and multiple diabetic foot ulcers. The patient has multiple behavioral problems and difficulty historically with adherence to treatment recommendations. Wounds assessed and dressings ordered. Discussed with the patient the importance of his following treatment recommendations at this time, as he will lose his leg if he does not. Past Medical History: Admits Diabetes Type II Latex Allergy Bipolar, Hx of Schizophrenia. Hx of methamphetamine use. HTN. Previous amputation R5 Smoking Status: Current Everyday Smoker Recreational Drug Use: Yes Alcohol Use: Denies Use Review of Systems Pulmonary: No Dyspnea Cardiovascular: No: Chest Pain Neurological: Other (patient concerned that he was sedated in ambulance, expresses concern in regard to what happened while he was sedated.) Exam Vital Signs Date Time Temp Pulse Resp B/P (MAP) Pulse Ox O2 Delivery O2 Flow Rate FiO2 09/18/17 16:37 97.5 72 18 170/92 (118) 96 Room Air 09/18/17 14:18 4.00 Capillary Refill : Less Than 3 Seconds General Appearance: no apparent distress Extremities: pedal edema, other (Palpable pedal pulses.) Skin: other (R great toe -- 1.1 x 1.2 x 0.2 cm, base 100% slough, periwound moist callus; plantar foot -- 0.9 x 0.7 x 0.2 cm, cluster of two, base 100% sloough.) Results Laboratory Tests 09/18/17 13:42: White Blood Count 4.7, Red Blood Count 2.85L, Hemoglobin 9.6L, Hematocrit 28L, Mean Corpuscular Volume 99, Mean Corpuscular Hemoglobin 34, Mean Corpuscular Hemoglobin Concent 34, Red Cell Distribution Width 12.5, Platelet Count 286, Mean Platelet Volume 9.0, Neutrophils (%) (Auto) 37L, Lymphocytes (%) (Auto) 38 , Monocytes (%) (Auto) 20H, Eosinophils (%) (Auto) 4, Basophils (%) (Auto) 1, Neutrophils # (Auto) 1.7L, Lymphocytes # (Auto) 1.8, Monocytes # (Auto) 0.9, Eosinophils # (Auto) 0.2, Basophils # (Auto) 0.1, Neutrophils % (Manual) 50, Lymphocytes % (Manual) 32, Monocytes % (Manual) 12, Eosinophils % (Manual) 6, Blood Morphology Comment NORMAL, Sodium Level 128L, Potassium Level 4.6, Chloride Level 96L, Carbon Dioxide Level 23, Anion Gap 9, Blood Urea Nitrogen 5L , Creatinine 0.69, Estimat Glomerular Filtration Rate > 60, BUN/Creatinine Ratio 7, Glucose Level 69L, Calcium Level 8.6, Total Bilirubin 0.3, Aspartate Amino Transf (AST/SGOT) 21, Alanine Aminotransferase (ALT/SGPT) 15, Alkaline Phosphatase 41, Total Protein 5.7L, Albumin 3.5 Assessment/Plan/Dx 1. Diabetic foot ulcer, R great toe, Tucker Grade 2. 2. Diabetic foot ulcer, R plantar foot x 2, Tucker Grade 2. 3. Deep space foot infection, improved with IV antibiotics. 4. Schizophrenia by history. 5. History of methamphetamine abuse. Plan: Will begin Dakin's dressings to help with local infection. The patient is counselled at length in regards to the seriousness of the infection, the risk of loss of limb or life, the need for close follow-up, and the need on his part of adherence to recommended treatments. He expresses a willingness to follow our recommendations. CLAY BRENNAN MD September 18, 2017 17:18
[2017-09-18] MEDS ORDERED: HYDROcodone/APAP 5 MG/325 MG (LORTAB) TAB ONE (17:48)
[2017-09-18] MEDS: HYDROcodone/APAP 5 MG/325 MG (LORTAB) TAB PO PRN ×2 (17:56→21:54)
[2017-09-18] MEDS: DAKIN'S 1/4 STRENGTH (0.125%) 473 ML BTL TOP SCH (18:40)
--- NOTE | 2017-09-18 19:54 | Progress Note-Post Operative ---
Post-Operative Progess Note Surgeon (s)/Housekeeper/Custodian/Laundry Worker (s) Surgeon MINH AYALA DO Housekeeper/Custodian/Laundry Worker: none Pre-Operative Diagnosis , chronic right foot wound, need for IV ABX Post-Operative Diagnosis same Procedure & Operative Findings Date of Procedure 09/18/17 Procedure Performed/Findings Insertion triple lumen catheter with US guidance, Left IJ Anesthesia Type local lidocaine Estimated Blood Loss Estimated blood loss (mL): scant Specimens/Packing Specimens Removed none MINH AYALA DO September 18, 2017 19:54
--- NOTE | 2017-09-18 20:06 | Consultation ---
History of Present Illness History of Present Illness Patient Consulted On(ronnie/time) 09/18/17 20:01 Time Seen by Provider: 19:01 History of Present Illness Surgery asked to consult regarding venous insufficiency and need for line placement. Pt is a 42 yo male transferred in from another facility for higher level of care. Pt is a known methamphetamine user and unfortunately no longer has any good veins for IV access. The nursed tried 5-6 times and were unsuccessful and therefore requested central line placement. When seen pt is very drowsy, but awakens to voice and cool cloth placed on forehead; he goes right back to sleep within in a few seconds. Pt complains only of right foot pain. Pt states he has had central lines placed before; last one "by Dr. Denis". Allergies and Home Medications Allergies Coded Allergies: latex (Unverified Allergy, Intermediate, 08/12/10) Haloperidol Lactate (Unverified Allergy, Mild, 08/12/10) chlorpromazine HCl (Unverified Allergy, Mild, 08/12/10) haloperidol (Unverified Allergy, Mild, 08/12/10) Home Medications Albuterol Sulfate 1 Puff Puff, 2 PUFF IH Q4H PRN for SHORTNESS OF BREATH, ( Reported) LAST FILLED 12-12-16 Amitriptyline HCl 75 Mg Tablet, 75 MG PO HS, (Reported) Amlodipine Besylate 10 Mg Tablet, 10 MG PO DAILY, (Reported) Benztropine Mesylate 1 Mg Tablet, 1 MG PO TID, (Reported) Divalproex Sodium 500 Mg Tablet.dr, 500 MG PO QID, (Reported) Duloxetine HCl 60 Mg Capsule.dr, 60 MG PO DAILY, (Reported) Hydrocodone/Ibuprofen 1 Each Tablet, 1 TAB PO TID PRN for PAIN-MODERATE, ( Reported) Lisinopril/Hydrochlorothiazide 1 Each Tablet, 1 TAB PO DAILY, (Reported) Metformin HCl 1,000 Mg Tablet, 1,000 MG PO BID, (Reported) Metoprolol Succinate 50 Mg Tab.er.24h, 50 MG PO DAILY, (Reported) Paliperidone 6 Mg Tab.er.24, 6 MG PO DAILY, (Reported) Pioglitazone HCl 45 Mg Tablet, 45 MG PO DAILY, (Reported) Pregabalin 150 Mg Capsule, 150 MG PO BID, (Reported) Ranitidine HCl 150 Mg Tablet, 150 MG PO BID, (Reported) Ropinirole HCl 3 Mg Tablet, 3 MG PO HS, (Reported) Patient Home Medication List Home Medication List Reviewed: Yes Past Qmtsvlo-Krfkak-Vrmowo Hx Patient Social History Alcohol Use: Denies Use Recreational Drug Use: Yes Drug of Choice: METH, Marijuana Smoking Status: Current Everyday Smoker Type Used: Cigarettes Recent Foreign Travel: No Contact w/Someone Who Travel: No Recent Infectious Disease Expo: No Recent Hopitalizations: Yes ([facility], TROUBLE. O.D.' [place] 2003) Physical Abuse Screen: Yes Sexual Abuse: No Surgeries History of Surgeries: Yes (RIGHT HAND, amputation right little toe) Respiratory History of Respiratory Disorde: No Cardiovascular History of Cardiac Disorders: No Neurological History of Neurological Disord: Yes Reproductive System Hx Reproductive Disorders: No Gastrointestinal History of Gastrointestinal Di: No Musculoskeletal History of Musculoskeletal Dis: Yes Endocrine History of Endocrine Disorders: Yes (was diabetic) HEENT History of HEENT Disorders: No Cancer History of Cancer: No Psychosocial History of Psychiatric Problem: Yes (parnoid) Behavioral Health Disorders: Bipolar, Schizophrenia, Violent Behavior Blood Transfusions History of Blood Disorders: No Family Medical History Significant Family History: Diabetes Review of Systems-General Constitutional: chills, malaise, weakness EENTM: No blurred vision, No mouth swelling, No epistaxis Respiratory: No cough, No dyspnea on exertion Cardiovascular: No chest pain, No edema, No palpitations Gastrointestinal: No abdominal pain, No constipation, No jaundice Genitourinary: No dysuria, No frequency, No hematuria Musculoskeletal: joint pain, joint swelling, muscle stiffness Skin: see HPI Psychiatric/Neurological: Anxiety, Depressed, Headache; Denies Seizure Other pt denies history of abnormal bruising or bleeding. Pt does supposedly have hx of Hep C Physical Exam-General Problems Physical Exam Vital Signs Vital Signs - First Documented 09/18/17 09/18/17 09/18/17 11:10 12:19 12:45 Temp 97.5 Pulse 68 Resp 12 B/P (MAP) 151/97 (115) Pulse Ox 98 O2 Delivery Room Air O2 Flow Rate 3.00 Capillary Refill : Less Than 3 Seconds General Appearance: WD/WN, no apparent distress Eyes: Bilateral Eye PERRL, Bilateral Eye EOMI HEENT: pharynx normal; No scleral icterus (R), No scleral icterus (L) Neck: non-tender, full range of motion; No thyromegaly Respiratory: chest non-tender, lungs clear, normal breath sounds, no respiratory distress, no accessory muscle use Cardiovascular: regular rate, rhythm, no edema, no murmur Gastrointestinal: normal bowel sounds, non tender, soft, no organomegaly, no pulsatile mass Back: no CVA tenderness, no vertebral tenderness Extremities: no calf tenderness, normal capillary refill, pedal edema (right foot), swelling (right foot), other (ulcers on right foot) Neurologic/Psychiatric: 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 II-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 nml as tested, no motor/sensory deficits Skin: normal color, warm/dry Lymphatic: no adenopathy (neck, axilla or groin) Data Review Labs Laboratory Tests 09/18/17 13:42: White Blood Count 4.7, Red Blood Count 2.85L, Hemoglobin 9.6L, Hematocrit 28L, Mean Corpuscular Volume 99, Mean Corpuscular Hemoglobin 34, Mean Corpuscular Hemoglobin Concent 34, Red Cell Distribution Width 12.5, Platelet Count 286, Mean Platelet Volume 9.0, Neutrophils (%) (Auto) 37L, Lymphocytes (%) (Auto) 38 , Monocytes (%) (Auto) 20H, Eosinophils (%) (Auto) 4, Basophils (%) (Auto) 1, Neutrophils # (Auto) 1.7L, Lymphocytes # (Auto) 1.8, Monocytes # (Auto) 0.9, Eosinophils # (Auto) 0.2, Basophils # (Auto) 0.1, Neutrophils % (Manual) 50, Lymphocytes % (Manual) 32, Monocytes % (Manual) 12, Eosinophils % (Manual) 6, Blood Morphology Comment NORMAL, Sodium Level 128L, Potassium Level 4.6, Chloride Level 96L, Carbon Dioxide Level 23, Anion Gap 9, Blood Urea Nitrogen 5L , Creatinine 0.69, Estimat Glomerular Filtration Rate > 60, BUN/Creatinine Ratio 7, Glucose Level 69L, Calcium Level 8.6, Total Bilirubin 0.3, Aspartate Amino Transf (AST/SGOT) 21, Alanine Aminotransferase (ALT/SGPT) 15, Alkaline Phosphatase 41, Total Protein 5.7L, Albumin 3.5 09/18/17 17:45: Glucometer 100 Assessment/Plan Assessment/Plan Assessment/Plan Venous Insufficiency Anemia Bipolar/Schizophrenia Hyponatremia Pt was assessed for viability of central line, used US. I also had to discuss the procedure with him prior to doing it and make sure there were no contraindications. Central line placed without difficulty, ok to use. Max medical management for Hyponatremia, Anemia and Bipolar. Thank you for this consult. Clinical Quality Measures DVT/VTE Risk/Contraindication: Risk Factor Score Per Nursin RFS Level Per Nursing on Admit: 3=High MINH AYALA DO September 18, 2017 20:06
--- NOTE | 2017-09-18 20:58 | Diagnostic Imaging Report ---
INDICATION: Peripheral vascular disease. FINDINGS: Pressures were recorded on the brachial artery, both posterior tibial arteries and the right dorsalis pedis. There is no detectable flow in the left dorsalis pedis. The ankle-brachial index on the right is 1.45. Ankle brachial index on the left is 1.19. IMPRESSION: Normal ankle-brachial indices. There is no detectable flow in the left dorsalis pedis artery. Dictated by: Dictated on workstation # [id number]
[2017-09-18] MEDS ORDERED: VANCOMYCIN 2000 MG/NS 500 ML IVPB IV SCH ×2 (21:00)
[2017-09-18] MEDS ORDERED: inSUlin ASPART (NovoLOG) 1 UNIT/0.01 ML (CHARGE PER UNIT) SC SCH (21:00)
[2017-09-19] MEDS: LORazepam 1 MG (ATIVAN) TAB PO PRN ×6 (00:15→20:47)
[2017-09-19 04:25] VITALS: BP 148/72
--- NOTE | 2017-09-19 04:42 | OPERATIVE REPORT ---
DATE OF SERVICE: 09/18/2017 PREOPERATIVE DIAGNOSES: 1. Venous insufficiency. 2. Anemia. 3. Bipolar. 4. Hyponatremia. POSTOPERATIVE DIAGNOSES: 1. Venous insufficiency. 2. Anemia. 3. Bipolar. 4. Hyponatremia. PROCEDURE: Insertion of triple lumen catheter left IJ with ultrasound guidance. SURGEON: Dameon rTejo DO. MANUFACTURING LAB TECHNICIAN: None. ANESTHESIA: Local lidocaine. BLOOD LOSS: Scant. FLUIDS: None. POSTOPERATIVE CONDITION: Stable. INDICATION FOR PROCEDURE: The patient is a 42-year-old male transferred from an outside hospital needed a higher level of care. He has venous insufficiency secondary to meth use, nursing unable to get IV access and he needs IV antibiotics. He also has some anemia and history of bipolar and schizophrenia. FINDINGS: The patient had a triple lumen catheter placed in left IJ under ultrasound guidance on the first attempt. PROCEDURE NOTE: After informed consent was obtained, the patient was in his bed. He was sterilely prepped and draped in normal fashion. Local lidocaine was used to infiltrate the skin over the left IJ. Then using ultrasound, placed under the patient's neck, advanced the 18 gauge fine needle with negative inspiration and watched it enter the internal jugular vein and got a good flash of blood, removed the syringe then placed a guidewire down the needle using the Seldinger technique, it went in easily, checked if the guidewire was down the IJ. Removed the needle and then made a stab incision at the guidewire with a #11 blade. Then over the guidewire, I placed a dilator using the Seldinger technique. It went in easily, removed this and then over the guidewire, I placed the triple lumen catheter using the Seldinger technique and again it went in easily. I removed the guidewire and then I had placed locking ports on all 3 AV ports, got a good flash of blood and then easily flushed with normal saline. Then elected to suture this in place with a 2-0 silk suture to either side and then placed the antibiotic disk under the catheter and then cleaned the area and then placed the Tegaderm dressing. The patient tolerated this procedure. Job ID: [id number] DocumentID: [id number] Dictated Date: 09/18/2017 20:13:40 Call Out Operator Date: 09/19/2017 04:42:03 Dictated By: DAMEON TREJO DO
[2017-09-19] MEDS: HYDROcodone/APAP 5 MG/325 MG (LORTAB) TAB PO PRN ×2 (05:19→11:53)
[2017-09-19] MEDS: CATHETER FLUSH 10 ML SYR IV SCH ×3 (06:29→22:00)
[2017-09-19] MEDS: inSUlin ASPART (NovoLOG) 1 UNIT/0.01 ML (CHARGE PER UNIT) SC SCH ×4 (06:30→21:32)
[2017-09-19 08:00] VITALS: BP 180/88
[2017-09-19] MEDS: VANCOMYCIN 2000 MG/NS 500 ML IVPB IV SCH ×4 (09:06→20:45)
[2017-09-19] MEDS: NICOTINE 21 MG (NICODERM) PATCH TD SCH (09:15)
[2017-09-19] MEDS: cefTRIAXone INJECTION 1,000 MG in NS (IVPB) 50 ML IV SCH (09:15)
[2017-09-19] MEDS: DAKIN'S 1/4 STRENGTH (0.125%) 473 ML BTL TOP SCH ×2 (09:15→20:48)
[2017-09-19] MEDS ORDERED: ENOXAPARIN 40 MG/0.4 ML (LOVENOX) SYR SQ SCH (09:45)
[2017-09-19 10:25] LABS: BASOPHILS % (AUTO) 1 % (0-10); EOSINOPHILS # (AUTO) 0.1 10^3/uL (0.0-0.3); EOSINOPHILS % (AUTO) 3 % (0-10); HEMATOCRIT 26 % (40-54); LYMPHOCYTES % (AUTO) 26 % (12-44); MEAN CORPUSCULAR HEMOGLOBIN 34 PG (25-34); MEAN CORPUSCULAR HGB CONC 35 G/DL (32-36); MEAN CORPUSCULAR VOLUME 99 FL (80-99); MEAN PLATELET VOLUME 8.5 FL (7.4-10.4); MONOCYTES # (AUTO) 0.7 X 10^3 (0.0-1.0); MONOCYTES % (AUTO) 19 % (0-12); NEUTROPHILS # (AUTO) 1.8 X 10^3 (1.8-7.8); NEUTROPHILS % (AUTO) 51 % (42-75); PLATELET COUNT 263 10^3/uL (130-400); RED BLOOD COUNT 2.62 10^6/uL (4.35-5.85); WHITE BLOOD COUNT 3.6 10^3/uL (4.3-11.0)
[2017-09-19 10:46] LABS: ALANINE AMINOTRANSFERASE 14 U/L (0-55); ALBUMIN 3.4 GM/DL (3.2-4.5); ALKALINE PHOSPHATASE 43 U/L (40-136); BILIRUBIN,TOTAL 0.4 MG/DL (0.1-1.0); BUN/CREATININE RATIO 6; CALCIUM 8.8 MG/DL (8.5-10.1); CARBON DIOXIDE 25 MMOL/L (21-32); CHLORIDE 101 MMOL/L (98-107); CREATININE SERUM 0.67 MG/DL (0.60-1.30); GFR ESTIMATED > 60; GLUCOSE 96 MG/DL (70-105); POTASSIUM 4.6 MMOL/L (3.6-5.0); SODIUM 132 MMOL/L (135-145); TOTAL PROTEIN 5.7 GM/DL (6.4-8.2)
--- NOTE | 2017-09-19 10:56 | Progress Note ---
Subjective Time Seen by Provider: 10:22 Subjective/Events-last exam Pt seen and examined, denies any neck pain. No SOB or cough. Pt's main complaint is right foot pain. Tolerating diet and Central Line working fine. Review of Systems General: No Chills, No Night Sweats Pulmonary: No Dyspnea, No Cough Cardiovascular: No: Chest Pain, Palpitations Objective Exam Vital Signs Date Time Temp Pulse Resp B/P (MAP) Pulse Ox O2 Delivery O2 Flow Rate FiO2 09/19/17 08:00 98.6 88 20 180/88 (118) 100 Room Air 09/19/17 07:00 83 09/19/17 04:25 97.4 74 18 148/72 (97) 94 Room Air 09/19/17 01:00 70 09/18/17 23:51 97.0 70 20 139/79 (99) 99 Room Air 09/18/17 21:00 97 Room Air 09/18/17 19:36 98.0 68 18 162/88 (112) 97 Room Air 09/18/17 19:00 72 09/18/17 18:32 97.5 09/18/17 17:56 97.5 09/18/17 16:37 97.5 72 18 170/92 (118) 96 Room Air 09/18/17 15:30 98 Room Air 09/18/17 15:00 65 18 156/98 (117) 98 Room Air 09/18/17 14:18 Nasal Cannula 4.00 09/18/17 14:00 67 19 160/99 (119) 97 Nasal Cannula 3.00 09/18/17 13:00 66 17 144/98 (113) 96 Nasal Cannula 3.00 09/18/17 12:59 66 09/18/17 12:45 97.5 Nasal Cannula 3.00 09/18/17 12:45 69 15 184/110 (134) 95 Nasal Cannula 3.00 09/18/17 12:19 68 10 161/102 98 Room Air 09/18/17 11:10 68 12 151/97 (115) Room Air I & O 09/19/17 07:00 Intake Total 1960 ml Output Total 2075 ml Balance -115 ml Capillary Refill : Less Than 3 Seconds General Appearance: No Apparent Distress, WD/WN, Other (the patient is obtunded but able to handle his own airway.) HEENT: PERRL/EOMI Neck: Supple Respiratory: Lungs Clear, No Accessory Muscle Use Cardiovascular: Regular Rate, Rhythm, No Murmur Gastrointestinal: normal bowel sounds, non tender, soft, no organomegaly, no pulsatile mass Extremity: Other (right foot swollen, with erythema, edema and tender. Wrapped in bandage) Skin: Normal Color, Warm/Dry Results Lab Laboratory Tests 09/18/17 13:42: White Blood Count 4.7, Red Blood Count 2.85L, Hemoglobin 9.6L, Hematocrit 28L, Mean Corpuscular Volume 99, Mean Corpuscular Hemoglobin 34, Mean Corpuscular Hemoglobin Concent 34, Red Cell Distribution Width 12.5, Platelet Count 286, Mean Platelet Volume 9.0, Neutrophils (%) (Auto) 37L, Lymphocytes (%) (Auto) 38 , Monocytes (%) (Auto) 20H, Eosinophils (%) (Auto) 4, Basophils (%) (Auto) 1, Neutrophils # (Auto) 1.7L, Lymphocytes # (Auto) 1.8, Monocytes # (Auto) 0.9, Eosinophils # (Auto) 0.2, Basophils # (Auto) 0.1, Neutrophils % (Manual) 50, Lymphocytes % (Manual) 32, Monocytes % (Manual) 12, Eosinophils % (Manual) 6, Blood Morphology Comment NORMAL, Sodium Level 128L, Potassium Level 4.6, Chloride Level 96L, Carbon Dioxide Level 23, Anion Gap 9, Blood Urea Nitrogen 5L , Creatinine 0.69, Estimat Glomerular Filtration Rate > 60, BUN/Creatinine Ratio 7, Glucose Level 69L, Calcium Level 8.6, Total Bilirubin 0.3, Aspartate Amino Transf (AST/SGOT) 21, Alanine Aminotransferase (ALT/SGPT) 15, Alkaline Phosphatase 41, Total Protein 5.7L, Albumin 3.5 09/18/17 17:45: Glucometer 100 09/18/17 20:36: Glucometer 113H 09/19/17 05:22: Glucometer 104 09/19/17 10:20: White Blood Count 3.6L, Red Blood Count 2.62L, Hemoglobin 9.0L, Hematocrit 26L, Mean Corpuscular Volume 99, Mean Corpuscular Hemoglobin 34, Mean Corpuscular Hemoglobin Concent 35, Red Cell Distribution Width 13.0, Platelet Count 263, Mean Platelet Volume 8.5, Neutrophils (%) (Auto) 51, Lymphocytes (%) (Auto) 26, Monocytes (%) (Auto) 19H, Eosinophils (%) (Auto) 3, Basophils (%) (Auto) 1, Neutrophils # (Auto) 1.8, Lymphocytes # (Auto) 1.0, Monocytes # (Auto) 0.7, Eosinophils # (Auto) 0.1, Basophils # (Auto) 0.0, Sodium Level 132L, Potassium Level 4.6, Chloride Level 101, Carbon Dioxide Level 25, Anion Gap 6, Blood Urea Nitrogen 4L, Creatinine 0.67, Estimat Glomerular Filtration Rate > 60, BUN/ Creatinine Ratio 6, Glucose Level 96, Calcium Level 8.8, Total Bilirubin 0.4, Aspartate Amino Transf (AST/SGOT) 19, Alanine Aminotransferase (ALT/SGPT) 14, Alkaline Phosphatase 43, Total Protein 5.7L, Albumin 3.4 Assessment/Plan Assessment/Plan Assessment/Plan Venous Insufficiency Anemia Bipolar/Schizophrenia Hyponatremia Pt assessed to check the central line; no erythema, no swelling and they have been using it all night. Continue to use, I will sign off and reconsult if needed. Clinical Quality Measures DVT/VTE Risk/Contraindication: Risk Factor Score Per Nursin RFS Level Per Nursing on Admit: 3=High MINH AYALA DO September 19, 2017 10:56
[2017-09-19] MEDS: amLODIPine 10 MG (NORVASC) TAB PO SCH (11:52)
[2017-09-19] MEDS: HYDROCHLOROTHIAZIDE 25 MG (HCTZ) TAB PO SCH (11:53)
[2017-09-19] MEDS: lisINopril 20 MG (PRINIVIL) TABLET PO SCH (11:53)
[2017-09-19] MEDS: meTOproloL SUCCINATE 50 MG (TOPROL XL) TAB PO SCH (11:53)
[2017-09-19] MEDS: ENOXAPARIN 40 MG/0.4 ML (LOVENOX) SYR SC SCH (11:54)
[2017-09-19 12:00] VITALS: BP 173/84
--- NOTE | 2017-09-19 12:06 | Diagnostic Imaging Report ---
INDICATION: History of multiple diabetic ulcers of the foot. Known ankle fracture with limitations in range of motion. TECHNIQUE: Three views of the right foot at 09:57 a.m. CORRELATION STUDY: None. 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 There is a mildly displaced obliquely oriented fracture involving the first metatarsal. Suspect for fracture at the base of the second and perhaps third metatarsals as well. There is soft tissue edema and gas collections over the great toe. No definitive pao erosive or destructive change suggested. Rather pronounced soft tissue swelling. IMPRESSION: 1. Rather pronounced soft tissue swelling of the great toe with soft tissue gas collections. No pao erosive or destructive type change. 2. Minimally displaced fracture involving the right first metatarsal. Suspect for potential nondisplaced fracture involving the second and third metatarsals. Combination of likely fracture and degenerative change about the partially visualized ankle. Dictated by: Dictated on workstation # [id number]
--- NOTE | 2017-09-19 13:02 | History & Physicial ([facility]) ---
HPI History of Present Illness: This is a 42 yo that reports several month history of wounds to his R foot. Pt was seen at [facility] and transferred to for high level of care and wound care. While en route by EMS pt was given Versed 10mg and was obtunded. He was evaluated in the ER upon arriving to and received flumazenil and was observed in the ICU until the effects of the Versed wore off. Pt reports pain to the R foot. He has hx of prior wounds as well as non- compliance with treatment. Pt has hx of meth use and has poor venous access, requiring central line placement by Dr. Trejo this hospitalization. Source: patient Date seen by provider: September 19, 2017 Time Seen by Provider: 10:50 Attending Physician Laura Roberts MD PCP Raciel Garcia DO Consult Date of Admission September 18, 2017 at 11:20 Home Medications Home Medications Reviewed patient Home Medication Reconciliation performed by pharmacy medication reconciliations foundry technician and/or nursing. Patients Allergies have been reviewed. Allergies Coded Allergies: latex (Unverified Allergy, Intermediate, 08/12/10) Haloperidol Lactate (Unverified Allergy, Mild, 08/12/10) chlorpromazine HCl (Unverified Allergy, Mild, 08/12/10) haloperidol (Unverified Allergy, Mild, 08/12/10) ENE-Lritbm-Uypfrk Hx Patient Social History Alcohol Use: Denies Use Recreational Drug Use: Yes Drug of Choice: METH, Marijuana Smoking Status: Current Everyday Smoker Type Used: Cigarettes Recent Foreign Travel: No Contact w/other who traveled: No Recent Hopitalizations: Yes ([facility], TROUBLE. 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 Bipolar Schizophrenia Hypertension PSH: R hand surgery amputation R 5th toe Family Medical History Significant Family History: Diabetes Review of Systems ([facility]) Constitutional: see HPI EENTM: no symptoms reported Respiratory: no symptoms reported Cardiovascular: no symptoms reported Gastrointestinal: no symptoms reported Musculoskeletal: see HPI Psychiatric/Neurological: Anxiety, Depressed, Emotional Problems Reviewed Test Results Reviewed Test Results Lab Laboratory Tests 09/18/17 13:42: White Blood Count 4.7, Red Blood Count 2.85L, Hemoglobin 9.6L, Hematocrit 28L, Mean Corpuscular Volume 99, Mean Corpuscular Hemoglobin 34, Mean Corpuscular Hemoglobin Concent 34, Red Cell Distribution Width 12.5, Platelet Count 286, Mean Platelet Volume 9.0, Neutrophils (%) (Auto) 37L, Lymphocytes (%) (Auto) 38 , Monocytes (%) (Auto) 20H, Eosinophils (%) (Auto) 4, Basophils (%) (Auto) 1, Neutrophils # (Auto) 1.7L, Lymphocytes # (Auto) 1.8, Monocytes # (Auto) 0.9, Eosinophils # (Auto) 0.2, Basophils # (Auto) 0.1, Neutrophils % (Manual) 50, Lymphocytes % (Manual) 32, Monocytes % (Manual) 12, Eosinophils % (Manual) 6, Blood Morphology Comment NORMAL, Sodium Level 128L, Potassium Level 4.6, Chloride Level 96L, Carbon Dioxide Level 23, Anion Gap 9, Blood Urea Nitrogen 5L , Creatinine 0.69, Estimat Glomerular Filtration Rate > 60, BUN/Creatinine Ratio 7, Glucose Level 69L, Calcium Level 8.6, Total Bilirubin 0.3, Aspartate Amino Transf (AST/SGOT) 21, Alanine Aminotransferase (ALT/SGPT) 15, Alkaline Phosphatase 41, Total Protein 5.7L, Albumin 3.5 09/18/17 17:45: Glucometer 100 09/18/17 20:36: Glucometer 113H 09/19/17 05:22: Glucometer 104 09/19/17 10:20: White Blood Count 3.6L, Red Blood Count 2.62L, Hemoglobin 9.0L, Hematocrit 26L, Mean Corpuscular Volume 99, Mean Corpuscular Hemoglobin 34, Mean Corpuscular Hemoglobin Concent 35, Red Cell Distribution Width 13.0, Platelet Count 263, Mean Platelet Volume 8.5, Neutrophils (%) (Auto) 51, Lymphocytes (%) (Auto) 26, Monocytes (%) (Auto) 19H, Eosinophils (%) (Auto) 3, Basophils (%) (Auto) 1, Neutrophils # (Auto) 1.8, Lymphocytes # (Auto) 1.0, Monocytes # (Auto) 0.7, Eosinophils # (Auto) 0.1, Basophils # (Auto) 0.0, Sodium Level 132L, Potassium Level 4.6, Chloride Level 101, Carbon Dioxide Level 25, Anion Gap 6, Blood Urea Nitrogen 4L, Creatinine 0.67, Estimat Glomerular Filtration Rate > 60, BUN/ Creatinine Ratio 6, Glucose Level 96, Calcium Level 8.8, Total Bilirubin 0.4, Aspartate Amino Transf (AST/SGOT) 19, Alanine Aminotransferase (ALT/SGPT) 14, Alkaline Phosphatase 43, Total Protein 5.7L, Albumin 3.4 09/19/17 11:45: Glucometer 100 Physical Exam-([facility]C) Physical Exam Vital Signs VS - Last 72 Hours, by Label 09/18/17 09/18/17 09/18/17 09/18/17 11:10 12:19 12:45 12:45 Temp 97.5 Pulse 68 68 69 Resp 12 10 15 B/P (MAP) 151/97 (115) 161/102 184/110 (134) Pulse Ox 98 95 O2 Delivery Room Air Room Air Nasal Cannula Nasal Cannula O2 Flow Rate 3.00 3.00 09/18/17 09/18/17 09/18/17 09/18/17 12:59 13:00 14:00 14:18 Pulse 66 66 67 Resp 17 19 B/P (MAP) 144/98 (113) 160/99 (119) Pulse Ox 96 97 O2 Delivery Nasal Cannula Nasal Cannula Nasal Cannula O2 Flow Rate 3.00 3.00 4.00 09/18/17 09/18/17 09/18/17 09/18/17 15:00 15:30 16:37 17:56 Temp 97.5 97.5 Pulse 65 72 Resp 18 18 B/P (MAP) 156/98 (117) 170/92 (118) Pulse Ox 98 98 96 O2 Delivery Room Air Room Air Room Air 09/18/17 09/18/17 09/18/17 09/18/17 18:32 19:00 19:36 21:00 Temp 97.5 98.0 Pulse 72 68 Resp 18 B/P (MAP) 162/88 (112) Pulse Ox 97 97 O2 Delivery Room Air Room Air 09/18/17 09/19/17 09/19/17 09/19/17 23:51 01:00 04:25 07:00 Temp 97.0 97.4 Pulse 70 70 74 83 Resp 20 18 B/P (MAP) 139/79 (99) 148/72 (97) Pulse Ox 99 94 O2 Delivery Room Air Room Air 09/19/17 08:00 Temp 98.6 Pulse 88 Resp 20 B/P (MAP) 180/88 (118) Pulse Ox 100 O2 Delivery Room Air Capillary Refill : Less Than 3 Seconds General Appearance: WD/WN, no apparent distress HEENT: PERRL/EOMI Respiratory: lungs clear, normal breath sounds, no respiratory distress Cardiovascular: regular rate, rhythm Extremities: other (R foot wrapped) Neurologic/Psychiatric: alert, normal mood/affect, oriented x 3 Assessment/Plan Assessment/Plan Admission Dx 1. R foot diabetic wound, with infection 2. DM Type 2 3. Hypertension 4. Illicit drug use 5. Unintentional Versed overdose 6. Hyponatremia 7. Anemia Admission Status: Inpatient Order (span 2 midnights) Reason for Inpatient Admission: IV antibiotics and wound care Assessment & Plan 1. R foot diabetic wound, with infection - on Vancomycin and Rocephin IV; Dr. Collins managing wound care. 2. DM Type 2 - was on Metformin and Actos - pt reports these medications were stopped due to normal A1c (will review clinic record); BS currently controlled - on SSI Novolog, medium dose. 3. Hypertension - restart home Lisinopril-HCT, Metroprolol, Amplodipine 4. Illicit drug use - discussed ATS services at [facility] 5. Unintentional Versed overdose - received 10mg Versed by EMS en route to [facility], evaluated in ED on arrival due to pt being obtunded. Given Flumazenil and observed in the ER. RESOLVED 6. Hyponatremia - Na 128 on admission, 132 today 7. Anemia - Hb 9.6 on admission, 9.0 today, will continue to monitor 8. Psychiatric Disorders- Bipolar/Schizophrenia - restart home meds. Clinical Quality Measures DVT/VTE Risk/Contraindication: Risk Factor Score Per Nursin RFS Level Per Nursing on Admit: 3=High RACIEL GARCIA DO September 19, 2017 13:02
[2017-09-19 15:35] VITALS: BP 161/84
[2017-09-19] MEDS: HYDROcodone /IBUPROFEN (VICOPROFEN) 7.5 MG/ 200 MG TAB PO PRN (15:55)
[2017-09-19] MEDS: DIVALPROEX 500 MG DELAYED RELEASE (DEPAKOTE) TAB PO SCH ×2 (17:08→20:46)
[2017-09-19 19:20] VITALS: BP 164/76
[2017-09-19] MEDS: BENZTROPINE MESYLATE 1 MG (COGENTIN) TAB PO SCH (20:47)
[2017-09-19] MEDS: IBUPROFEN 600 MG (MOTRIN) TAB PO PRN (20:47)
[2017-09-19] MEDS: PREGABALIN 75 MG (LYRICA) CAP PO SCH (20:48)
[2017-09-19] MEDS ORDERED: AMITRIPTYLINE 25 MG (ELAVIL) TAB PO SCH (21:00)
[2017-09-19] MEDS ORDERED: rOPINIRole 1 MG (REQUIP) TABLET PO SCH (21:00)
[2017-09-20 00:18] VITALS: BP 135/63
[2017-09-20] MEDS: HYDROcodone /IBUPROFEN (VICOPROFEN) 7.5 MG/ 200 MG TAB PO PRN ×3 (01:55→13:45)
[2017-09-20] MEDS: LORazepam 1 MG (ATIVAN) TAB PO PRN ×4 (01:55→12:32)
[2017-09-20 04:15] VITALS: BP 156/85
[2017-09-20] MEDS: CATHETER FLUSH 10 ML SYR IV SCH ×2 (05:01→12:35)
[2017-09-20 05:16] LABS: BASOPHILS % (AUTO) 1 % (0-10); EOSINOPHILS # (AUTO) 0.2 10^3/uL (0.0-0.3); EOSINOPHILS % (AUTO) 3 % (0-10); HEMATOCRIT 26 % (40-54); HEMOGLOBIN 9.1 G/DL (13.3-17.7); LYMPHOCYTES # (AUTO) 1.9 X 10^3 (1.0-4.0); LYMPHOCYTES % (AUTO) 40 % (12-44); MEAN CORPUSCULAR HEMOGLOBIN 34 PG (25-34); MEAN CORPUSCULAR HGB CONC 35 G/DL (32-36); MEAN CORPUSCULAR VOLUME 99 FL (80-99); MEAN PLATELET VOLUME 8.6 FL (7.4-10.4); MONOCYTES # (AUTO) 0.9 X 10^3 (0.0-1.0); MONOCYTES % (AUTO) 20 % (0-12); NEUTROPHILS # (AUTO) 1.7 X 10^3 (1.8-7.8); NEUTROPHILS % (AUTO) 36 % (42-75); PLATELET COUNT 254 10^3/uL (130-400); RED BLOOD COUNT 2.66 10^6/uL (4.35-5.85); RED CELL DISTRIBUTION WIDTH 12.9 % (10.0-14.5); WHITE BLOOD COUNT 4.7 10^3/uL (4.3-11.0)
[2017-09-20 05:29] LABS: BUN/CREATININE RATIO 5; CARBON DIOXIDE 22 MMOL/L (21-32); CHLORIDE 99 MMOL/L (98-107); CREATININE SERUM 0.75 MG/DL (0.60-1.30); GFR ESTIMATED > 60; GLUCOSE 94 MG/DL (70-105); POTASSIUM 4.3 MMOL/L (3.6-5.0); SODIUM 131 MMOL/L (135-145)
[2017-09-20] MEDS: inSUlin ASPART (NovoLOG) 1 UNIT/0.01 ML (CHARGE PER UNIT) SC SCH ×2 (05:45→11:13)
[2017-09-20] MEDS ORDERED: TROUGH ORDER-PHARMACY XX NR ×2 (07:00→08:00)
[2017-09-20 08:00] VITALS: BP 168/92
[2017-09-20] MEDS: DIVALPROEX 500 MG DELAYED RELEASE (DEPAKOTE) TAB PO SCH ×2 (08:08→12:32)
[2017-09-20] MEDS: HYDROCHLOROTHIAZIDE 25 MG (HCTZ) TAB PO SCH (08:08)
[2017-09-20] MEDS: BENZTROPINE MESYLATE 1 MG (COGENTIN) TAB PO SCH ×2 (08:08→12:32)
[2017-09-20] MEDS: PREGABALIN 75 MG (LYRICA) CAP PO SCH (08:08)
[2017-09-20] MEDS: lisINopril 20 MG (PRINIVIL) TABLET PO SCH (08:08)
[2017-09-20] MEDS: meTOproloL SUCCINATE 50 MG (TOPROL XL) TAB PO SCH (08:08)
[2017-09-20] MEDS: amLODIPine 10 MG (NORVASC) TAB PO SCH (08:08)
[2017-09-20] MEDS: NICOTINE 21 MG (NICODERM) PATCH TD SCH (08:09)
[2017-09-20] MEDS: DAKIN'S 1/4 STRENGTH (0.125%) 473 ML BTL TOP SCH (08:13)
[2017-09-20] MEDS: cefTRIAXone INJECTION 1,000 MG in NS (IVPB) 50 ML IV SCH (08:14)
[2017-09-20] MEDS ORDERED: NON-FORMULARY MEDICATION 1 EA EA (Metoprolol Succinate 50 MG) PO SCH (09:00)
[2017-09-20] MEDS ORDERED: NON-FORMULARY MEDICATION 1 EA EA (Lisinopril/Hydrochlorothiazide (Lisinopril-Hctz 20-25 mg PO SCH (09:00)
[2017-09-20] MEDS ORDERED: NON-FORMULARY MEDICATION 1 EA EA (Amlodipine Besylate 10 MG) PO SCH (09:00)
[2017-09-20] MEDS ORDERED: DULoxetine 30 MG (CYMBALTA) CAP PO SCH (09:00)
[2017-09-20] MEDS ORDERED: PALIPERIDONE 6 MG PO SCH (09:00)
--- NOTE | 2017-09-20 10:33 | Progress Note (SOAP) ---
Subjective Subjective/Events-last exam Still c/o of pain to the foot. Had a nightmare last night. Review of Systems Date Seen by Provider: September 20, 2017 Time Seen by Provider: 11:33 Objective Exam Last Set of Vital Signs Vital Signs Date Time Temp Pulse Resp B/P (MAP) Pulse Ox O2 Delivery O2 Flow Rate FiO2 09/20/17 08:00 98.8 79 22 168/92 (117) 98 Room Air 09/18/17 14:18 4.00 Capillary Refill : Less Than 3 Seconds I&O Intake and Output 09/20/17 00:00 Intake Total 3574 ml Output Total 3748 ml Balance -174 ml Intake Oral 3574 ml Output Urine Total 3748 ml # Voids 1 General: Alert, Oriented X3, Cooperative Results/Procedures Lab Laboratory Tests 09/19/17 11:45: Glucometer 100 09/19/17 16:11: Glucometer 132H 09/19/17 21:11: Glucometer 112H 09/20/17 05:05: White Blood Count 4.7, Red Blood Count 2.66L, Hemoglobin 9.1L, Hematocrit 26L, Mean Corpuscular Volume 99, Mean Corpuscular Hemoglobin 34, Mean Corpuscular Hemoglobin Concent 35, Red Cell Distribution Width 12.9, Platelet Count 254, Mean Platelet Volume 8.6, Neutrophils (%) (Auto) 36L, Lymphocytes (%) (Auto) 40 , Monocytes (%) (Auto) 20H, Eosinophils (%) (Auto) 3, Basophils (%) (Auto) 1, Neutrophils # (Auto) 1.7L, Lymphocytes # (Auto) 1.9, Monocytes # (Auto) 0.9, Eosinophils # (Auto) 0.2, Basophils # (Auto) 0.0, Sodium Level 131L, Potassium Level 4.3, Chloride Level 99, Carbon Dioxide Level 22, Anion Gap 10, Blood Urea Nitrogen 4L, Creatinine 0.75, Estimat Glomerular Filtration Rate > 60, BUN/ Creatinine Ratio 5, Glucose Level 94, Calcium Level 9.0 09/20/17 07:15: Vancomycin Level Trough 22.3H Assessment/Plan Assessment/Plan Assessment & Plan 1. R foot diabetic wound, with infection - on Vancomycin and Rocephin IV; Dr. Collins managing wound care. 09/20 - wbc normal 2. DM Type 2 - was on Metformin and Actos - pt reports these medications were stopped due to normal A1c (will review clinic record); BS currently controlled - on SSI Novolog, medium dose. 3. Hypertension - restart home Lisinopril-HCT, Metroprolol, Amplodipine 4. Illicit drug use - discussed ATS services at [facility] 5. Unintentional Versed overdose - received 10mg Versed by EMS en route to , evaluated in ED on arrival due to pt being obtunded. Given Flumazenil and observed in the ER. RESOLVED 6. Hyponatremia - Na 128 on admission, 132 today 09/20 - Na 131 7. Anemia - Hb 9.6 on admission, 9.0 today, will continue to monitor 09/20 - Hb stable at 9.1 8. Psychiatric Disorders- Bipolar/Schizophrenia - restart home meds. Clinical Quality Measures DVT/VTE Risk/Contraindication: Risk Factor Score Per Nursin RFS Level Per Nursing on Admit: 3=High RACIEL BURROUGHS DO September 20, 2017 10:33
[2017-09-20] MEDS ORDERED: VANCOMYCIN INJECTION 1,750 MG in NS IV 500 ML 500 ML IV SCH (11:00)
[2017-09-20 12:00] VITALS: BP 157/81
[2017-09-20] MEDS: IBUPROFEN 600 MG (MOTRIN) TAB PO PRN (12:31)
[2017-09-20] MEDS: ENOXAPARIN 40 MG/0.4 ML (LOVENOX) SYR SC SCH (12:33)
[2017-09-20] MEDS ORDERED: LORazepam 1 MG (ATIVAN) TAB PO NR (14:00)
[2017-09-20 15:40] VITALS: BP 159/92
[2017-09-20] MEDS ORDERED: ANTACID SUSP 30 ML UDC (MYLANTA) ONE (16:59)
[2017-09-20] MEDS ORDERED: NS IV 1000 ML 1,000 ML ONE (21:15)
--- NOTE | 2017-09-22 13:36 | Physician Query-Final Dx ---
LELA CASH 09/22/17 1336: Final Diagnosis Give Final Diagnosis Please give Final Diagnosis RACIEL BURROUGHS DO 10/05/17 0733: Final Diagnosis Give Final Diagnosis Patient left AMA. 1. R foot diabetic wound, with infection - on Vancomycin and Rocephin IV; Dr. Collins managing wound care. 09/20 - wbc normal 2. DM Type 2 - was on Metformin and Actos - pt reports these medications were stopped due to normal A1c (will review clinic record); BS currently controlled - on SSI Novolog, medium dose. 3. Hypertension - restart home Lisinopril-HCT, Metroprolol, Amplodipine 4. Illicit drug use - discussed ATS services at [facility] 5. Unintentional Versed overdose - received 10mg Versed by EMS en route to , evaluated in ED on arrival due to pt being obtunded. Given Flumazenil and observed in the ER. RESOLVED 6. Hyponatremia - Na 128 on admission, 132 today 09/20 - Na 131 7. Anemia - Hb 9.6 on admission, 9.0 today, will continue to monitor 09/20 - Hb stable at 9.1 8. Psychiatric Disorders- Bipolar/Schizophrenia - restart home meds. LELA CASH September 22, 2017 13:36 RACIEL BURROUGHS DO October 05, 2017 07:33
[2017-09-25] MEDS ORDERED: CLIN300C11 PO (16:19)
== END 2017-09-20 16:20 | disposition left against medical advice (07) | DRG 603 ==
LOC: EDUNIT# 11:05 → ER 11:06 → ICU 11:20 → 4TH 15:50
PROVIDERS: ADMIT Family Medicine; ATTEND Family Medicine
PROC: 02HV33Z Insertion of Infusion Device into Superior Vena Cava, Percutaneous Approach (ICD-10-PCS; principal; 2017-09-18)
DX: L03.115 Cellulitis of right lower limb (principal); L03.031 Cellulitis of right toe; E11.621 Type 2 diabetes mellitus with foot ulcer; L97.419 Non-pressure chronic ulcer of right heel and midfoot with unspecified severity; L97.519 Non-pressure chronic ulcer of other part of right foot with unspecified severity; T42.4X1A Poisoning by benzodiazepines, accidental (unintentional), initial encounter; E87.1 Hypo-osmolality and hyponatremia; E11.40 Type 2 diabetes mellitus with diabetic neuropathy, unspecified; D64.9 Anemia, unspecified; I10 Essential (primary) hypertension; F31.9 Bipolar disorder, unspecified; F17.210 Nicotine dependence, cigarettes, uncomplicated; F20.9 Schizophrenia, unspecified; I87.2 Venous insufficiency (chronic) (peripheral); F15.90 Other stimulant use, unspecified, uncomplicated; Z53.21 Procedure and treatment not carried out due to patient leaving prior to being seen by health care provider
CPT/HCPCS: 36415; 73630; 80048; 80053; 80202; 82962; 85007; 85025; 85027; 93923; 96360

== ENCOUNTER → 2017-09-30 | Outpatient (CLI) | payer MEDICARE, MEDICAID ==
[~2017-09-30] MED LIST changes: +AMLO10TA2 PO; +BENZ1TAB6 PO; +CLIN300C11 PO; +DIVA500T7 PO; +DULO60CA58 PO; +HYDR-87 PO; +LISI1TAB10 PO; +METF10002 PO; +METO-370 PO; +PALI6TAB PO; +PIOG45TA18 PO; +PREG150C PO; +RANI150T11 PO; +ROPI3TAB2 PO; +RT-ALBUINH IH
== END ==
LOC: LAB 14:21
PROVIDERS: ATTEND Surgery
DX: E11.621 Type 2 diabetes mellitus with foot ulcer (principal); L97.514 Non-pressure chronic ulcer of other part of right foot with necrosis of bone; E11.42 Type 2 diabetes mellitus with diabetic polyneuropathy
CPT/HCPCS: 36415; 83036

== ENCOUNTER → 2017-09-30 | Outpatient (CLI) | payer MEDICARE, MEDICAID | LOC: WOUNDCARE 11:49 | PROVIDERS: ATTEND Surgery | DX: E11.621 Type 2 diabetes mellitus with foot ulcer (principal); E11.42 Type 2 diabetes mellitus with diabetic polyneuropathy; L97.514 Non-pressure chronic ulcer of other part of right foot with necrosis of bone; F20.9 Schizophrenia, unspecified; M86.271 Subacute osteomyelitis, right ankle and foot | CPT/HCPCS: 11042; 11044; 87070; 87075; 87077; 87186; 87205 ==

== ENCOUNTER 2017-10-05 14:12 | Emergency (ER) | payer MEDICARE, MEDICAID ==
--- OUTSIDE RECORDS SUMMARY | 2017-10-05 14:17 | XMS REPORT | Clinical Summary ---
Author Author [facility] Organization [facility] Address Unknown Phone Unavailable Care Team Providers Care Mining Helper Name Role Phone PP Unavailable Allergies Active [...] Noted Date Schizoaffective disorder, depressive type ([facility]) 03/04/2012 Mood disorder ([facility]) 03/02/2012 Social History Tobacco Use Types Packs/Day [...]
--- OUTSIDE RECORDS SUMMARY | 2017-10-07 16:15 | XMS REPORT | Clinical Summary ---
Author Author [facility] Organization [facility] Address Unknown Phone Unavailable Care Team Providers Care Technology Infusion Specialist Name Role Phone PP Unavailable Allergies Active [...] Date Schizoaffective disorder, depressive type ([facility]) 03/04/2012 Mood disorder ([facility]) 03/02/2012 Social History Tobacco Use [...]
--- OUTSIDE RECORDS SUMMARY | 2017-10-07 16:26 | XMS REPORT | Continuity of Care Document ---
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 leukocytes in nose 6 % NRG Blood erythrocyte morphology finding identification NORMAL NRG Capillary blood glucose measurement by glucometer (mass/volume) - 09/18/17 17: 45 Capillary blood glucose measurement by glucometer (mass/volume) 100 mg/dL 70-110 Capillary blood glucose measurement by glucometer (mass/volume) - 09/18/17 20: 36 Capillary blood glucose measurement by glucometer (mass/volume) 113 mg/dL 70-110 Capillary blood glucose measurement by glucometer (mass/volume) - 09/19/17 05: 22 Capillary blood glucose measurement by glucometer (mass/volume) 104 mg/dL 70-110 Complete blood count (CBC) with automated white blood cell (WBC) differential - 09/19/17 10:20 Blood leukocytes automated count (number/volume) 3.6 10*3/uL 4.3-11.0 Blood erythrocytes automated count (number/volume) 2.62 10*6/uL 4.35-5.85 Venous blood hemoglobin measurement (mass/volume) 9.0 g/dL 13.3-17.7 Blood hematocrit (volume fraction) 26 % 40-54 Automated erythrocyte mean corpuscular volume 99 [foz_us] 80-99 Automated erythrocyte mean corpuscular hemoglobin (mass per erythrocyte) 34 pg 25-34 Automated erythrocyte mean corpuscular hemoglobin concentration measurement ( mass/volume) 35 g/dL 32-36 Automated erythrocyte distribution width ratio 13.0 % 10.0-14.5 Automated blood platelet count (count/volume) 263 10*3/uL 130-400 Automated blood platelet mean volume measurement 8.5 [foz_us] 7.4-10.4 Automated blood neutrophils/100 leukocytes 51 % 42-75 Automated blood lymphocytes/100 leukocytes 26 % 12-44 Blood monocytes/100 leukocytes 19 % 0-12 Automated blood eosinophils/100 leukocytes 3 % 0-10 Automated blood basophils/100 leukocytes 1 % 0-10 Blood neutrophils automated count (number/volume) 1.8 10*3 1.8-7.8 Blood lymphocytes automated count (number/volume) 1.0 10*3 1.0-4.0 Blood monocytes automated count (number/volume) 0.7 10*3 0.0-1.0 Automated eosinophil count 0.1 10*3/uL 0.0-0.3 Automated blood basophil count (count/volume) 0.0 10*3/uL 0.0-0.1 Comprehensive metabolic panel - 09/19/17 10:20 Serum or plasma sodium measurement (moles/volume) 132 mmol/L 135-145 Serum or plasma potassium measurement (moles/volume) 4.6 mmol/L 3.6-5.0 Serum or plasma chloride measurement (moles/volume) 101 mmol/L 98-107 Carbon dioxide 25 mmol/L 21-32 Serum or plasma anion gap determination (moles/volume) 6 mmol/L 5-14 Serum or plasma urea nitrogen measurement (mass/volume) 4 mg/dL 7-18 Serum or plasma creatinine measurement (mass/volume) 0.67 mg/dL 0.60-1.30 Serum or plasma urea nitrogen/creatinine mass ratio 6 NRG Serum or plasma creatinine measurement with calculation of estimated glomerular filtration rate > NRG Serum or plasma glucose measurement (mass/volume) 96 mg/dL 70-105 Serum or plasma calcium measurement (mass/volume) 8.8 mg/dL 8.5-10.1 Serum or plasma total bilirubin measurement (mass/volume) 0.4 mg/dL 0.1-1.0 Serum or plasma alkaline phosphatase measurement (enzymatic activity/volume) 43 U/L 40-136 Serum or plasma aspartate aminotransferase measurement (enzymatic activity/ volume) 19 U/L 5-34 Serum or plasma alanine aminotransferase measurement (enzymatic activity/volume ) 14 U/L 0-55 Serum or plasma protein measurement (mass/volume) 5.7 g/dL 6.4-8.2 Serum or plasma albumin measurement (mass/volume) 3.4 g/dL 3.2-4.5 Capillary blood glucose measurement by glucometer (mass/volume) - 09/19/17 11: 45 Capillary blood glucose measurement by glucometer (mass/volume) 100 mg/dL 70-110 Capillary blood glucose measurement by glucometer (mass/volume) - 09/19/17 16: 11 Capillary blood glucose measurement by glucometer (mass/volume) 132 mg/dL 70-110 Capillary blood glucose measurement by glucometer (mass/volume) - 09/19/17 21: 11 Capillary blood glucose measurement by glucometer (mass/volume) 112 mg/dL 70-110 Complete blood count (CBC) with automated white blood cell (WBC) differential - 09/20/17 05:05 Blood leukocytes automated count (number/volume) 4.7 10*3/uL 4.3-11.0 Blood erythrocytes automated count (number/volume) 2.66 10*6/uL 4.35-5.85 Venous blood hemoglobin measurement (mass/volume) 9.1 g/dL 13.3-17.7 Blood hematocrit (volume fraction) 26 % 40-54 Automated erythrocyte mean corpuscular volume 99 [foz_us] 80-99 Automated erythrocyte mean corpuscular hemoglobin (mass per erythrocyte) 34 pg 25-34 Automated erythrocyte mean corpuscular hemoglobin concentration measurement ( mass/volume) 35 g/dL 32-36 Automated erythrocyte distribution width ratio 12.9 % 10.0-14.5 Automated blood platelet count (count/volume) 254 10*3/uL 130-400 Automated blood platelet mean volume measurement 8.6 [foz_us] 7.4-10.4 Automated blood neutrophils/100 leukocytes 36 % 42-75 Automated blood lymphocytes/100 leukocytes 40 % 12-44 Blood monocytes/100 leukocytes 20 % 0-12 Automated blood eosinophils/100 leukocytes 3 % 0-10 Automated blood basophils/100 leukocytes 1 % 0-10 Blood neutrophils automated count (number/volume) 1.7 10*3 1.8-7.8 Blood lymphocytes automated count (number/volume) 1.9 10*3 1.0-4.0 Blood monocytes automated count (number/volume) 0.9 10*3 0.0-1.0 Automated eosinophil count 0.2 10*3/uL 0.0-0.3 Automated blood basophil count (count/volume) 0.0 10*3/uL 0.0-0.1 Whole blood basic metabolic panel - 09/20/17 05:05 Serum or plasma sodium measurement (moles/volume) 131 mmol/L 135-145 Serum or plasma potassium measurement (moles/volume) 4.3 mmol/L 3.6-5.0 Serum or plasma chloride measurement (moles/volume) 99 mmol/L 98-107 Carbon dioxide 22 mmol/L 21-32 Serum or plasma anion gap determination (moles/volume) 10 mmol/L 5-14 Serum or plasma urea nitrogen measurement (mass/volume) 4 mg/dL 7-18 Serum or plasma creatinine measurement (mass/volume) 0.75 mg/dL 0.60-1.30 Serum or plasma urea nitrogen/creatinine mass ratio 5 NRG Serum or plasma creatinine measurement with calculation of estimated glomerular filtration rate > NRG Serum or plasma glucose measurement (mass/volume) 94 mg/dL 70-105 Serum or plasma calcium measurement (mass/volume) 9.0 mg/dL 8.5-10.1 Vancomycin trough - 09/20/17 07:15 Vancomycin trough 22.3 ug/mL 10.0-20.0 Capillary blood glucose measurement by glucometer (mass/volume) - 09/20/17 11: 12 Capillary blood glucose measurement by glucometer (mass/volume) 122 mg/dL 70-110 Capillary blood glucose measurement by glucometer (mass/volume) - 09/20/17 15: 44 Capillary blood glucose measurement by glucometer (mass/volume) 118 mg/dL 70-110 Complete blood count (CBC) with automated white blood cell (WBC) differential - 09/25/17 15:23 Blood leukocytes automated count (number/volume) 7.4 10*3/uL 4.3-11.0 Blood erythrocytes automated count (number/volume) 3.00 10*6/uL 4.35-5.85 Venous blood hemoglobin measurement (mass/volume) 10.4 g/dL 13.3-17.7 Blood hematocrit (volume fraction) 30 % 40-54 Automated erythrocyte mean corpuscular volume 99 [foz_us] 80-99 Automated erythrocyte mean corpuscular hemoglobin (mass per erythrocyte) 35 pg 25-34 Automated erythrocyte mean corpuscular hemoglobin concentration measurement ( mass/volume) 35 g/dL 32-36 Automated erythrocyte distribution width ratio 13.9 % 10.0-14.5 Automated blood platelet count (count/volume) 218 10*3/uL 130-400 Automated blood platelet mean volume measurement 9.1 [foz_us] 7.4-10.4 Automated blood neutrophils/100 leukocytes 60 % 42-75 Automated blood lymphocytes/100 leukocytes 25 % 12-44 Blood monocytes/100 leukocytes 12 % 0-12 Automated blood eosinophils/100 leukocytes 2 % 0-10 Automated blood basophils/100 leukocytes 0 % 0-10 Blood neutrophils automated count (number/volume) 4.4 10*3 1.8-7.8 Blood lymphocytes automated count (number/volume) 1.9 10*3 1.0-4.0 Blood monocytes automated count (number/volume) 0.9 10*3 0.0-1.0 Automated eosinophil count 0.2 10*3/uL 0.0-0.3 Automated blood basophil count (count/volume) 0.0 10*3/uL 0.0-0.1 Comprehensive metabolic panel - 09/25/17 15:23 Serum or plasma sodium measurement (moles/volume) 130 mmol/L 135-145 Serum or plasma potassium measurement (moles/volume) 4.6 mmol/L 3.6-5.0 Serum or plasma chloride measurement (moles/volume) 94 mmol/L 98-107 Carbon dioxide 25 mmol/L 21-32 Serum or plasma anion gap determination (moles/volume) 11 mmol/L 5-14 Serum or plasma urea nitrogen measurement (mass/volume) 7 mg/dL 7-18 Serum or plasma creatinine measurement (mass/volume) 0.78 mg/dL 0.60-1.30 Serum or plasma urea nitrogen/creatinine mass ratio 9 NRG Serum or plasma creatinine measurement with calculation of estimated glomerular filtration rate > NRG Serum or plasma glucose measurement (mass/volume) 93 mg/dL 70-105 Serum or plasma calcium measurement (mass/volume) 9.5 mg/dL 8.5-10.1 Serum or plasma total bilirubin measurement (mass/volume) 0.5 mg/dL 0.1-1.0 Serum or plasma alkaline phosphatase measurement (enzymatic activity/volume) 57 U/L 40-136 Serum or plasma aspartate aminotransferase measurement (enzymatic activity/ volume) 21 U/L 5-34 Serum or plasma alanine aminotransferase measurement (enzymatic activity/volume ) 17 U/L 0-55 Serum or plasma protein measurement (mass/volume) 6.8 g/dL 6.4-8.2 Serum or plasma albumin measurement (mass/volume) 4.0 g/dL 3.2-4.5 Erythrocyte sedimentation rate by westergren method - 09/25/17 15:23 Erythrocyte sedimentation rate by westergren method 31 mm 0-15 Gram stain microscopy - 09/25/17 16:06 GRAM STAIN RESULT FEW WBC'S, NO BACTERIA OBSERVED NRG Bacteria identification in wound by culture - 09/25/17 16:06 Bacteria identification in wound by culture [id number] NRG FREE TEXT EXTERNAL MORE THAN ONE COLONY TYPE NRG QUANTITY OF GROWTH Scant Growth NRG Bacterial susceptibility panel - 09/25/17 16:06 Oxacillin susceptibility test by minimum inhibitory concentration < = NRG Gentamicin susceptibility test by minimum inhibitory concentration < = NRG Clindamycin susceptibility test by minimum inhibitory concentration <= NRG Erythromycin susceptibility test by minimum inhibitory concentration <= NRG Trimethoprim/sulfamethoxazole susceptibility test by minimum inhibitoryconcentration S NRG Vancomycin susceptibility test by minimum inhibitory concentration < = NRG Levofloxacin susceptibility test by minimum inhibitory concentration 0.25 NRG Rifampin susceptibility test by minimum inhibitory concentration <= NRG Tetracycline susceptibility test by minimum inhibitory concentration <= NRG Bacteria identification in isolate by anaerobe culture - 09/30/17 13:25 Bacteria identification in isolate by anaerobe culture NOANA NRG Gram stain microscopy - 09/30/17 13:25 GRAM STAIN RESULT NO BACTERIA OBSERVED NRG Bacteria identification in wound by culture - 09/30/17 13:25 Bacteria identification in wound by culture [id number] NRG FREE TEXT EXTERNAL SENSITIVITY REPORTED AT 1408, 5--18 NRG QUANTITY OF GROWTH Scant Growth NR Bacterial susceptibility panel - 09/30/17 13:25 Oxacillin susceptibility test by minimum inhibitory concentration < = NRG Gentamicin susceptibility test by minimum inhibitory concentration < = NRG Clindamycin susceptibility test by minimum inhibitory concentration <= NRG Erythromycin susceptibility test by minimum inhibitory concentration <= NRG Trimethoprim/sulfamethoxazole susceptibility test by minimum inhibitoryconcentration S NRG Vancomycin susceptibility test by minimum inhibitory concentration 1 NRG Levofloxacin susceptibility test by minimum inhibitory concentration 0.25 NRG Rifampin susceptibility test by minimum inhibitory concentration <= NRG Tetracycline susceptibility test by minimum inhibitory concentration <= NRG Linezolid susceptibility test by minimum inhibitory concentration 2 NRG Bacterial susceptibility panel - 09/30/17 13:25 Gentamicin susceptibility test by minimum inhibitory concentration S NRG Erythromycin susceptibility test by minimum inhibitory concentration >= NRG Vancomycin susceptibility test by minimum inhibitory concentration 2 NRG Ampicillin susceptibility test by minimum inhibitory concentration < = NRG Linezolid susceptibility test by minimum inhibitory concentration 1 NRG Bacterial susceptibility panel - 09/30/17 13:25 Oxacillin susceptibility test by minimum inhibitory concentration S NRG Gentamicin susceptibility test by minimum inhibitory concentration < = NRG Clindamycin susceptibility test by minimum inhibitory concentration 0.5 NRG Erythromycin susceptibility test by minimum inhibitory concentration <= NRG Trimethoprim/sulfamethoxazole susceptibility test by minimum inhibitoryconcentration S NRG Vancomycin susceptibility test by minimum inhibitory concentration < = NRG Levofloxacin susceptibility test by minimum inhibitory concentration 0.5 NRG Rifampin susceptibility test by minimum inhibitory concentration <= NRG Tetracycline susceptibility test by minimum inhibitory concentration <= NRG Ciprofloxacin susceptibility test by minimum inhibitory concentration I NRG Linezolid susceptibility test by minimum inhibitory concentration 2 NRG Hemoglobin A1c - 09/30/17 14:38 Blood hemoglobin A1C measurement (mass/volume) 4.7 % 4.0- 5.6 MEAN BLOOD GLUCOSE 88 % <=126 Encounters ACCT No. Visit Date/Time Discharge Status Pt. Type Provider Facility Loc./Unit Complaint [id number] 08/02/2014 09:39:00 08/02/2014 23:59:59 CLS Outpatient RACIEL BURROUGHS DO [id number] 08/02/2014 09:39:00 08/02/2014 23:59:59 CLS Outpatient RACIEL BURROUGHS DO [id number] 04/18/2014 11:06:00 04/18/2014 23:59:59 CLS Outpatient MELIZA THORNTON APRN [id number] 04/18/2014 11:06:00 04/18/2014 23:59:59 CLS Outpatient MELIZA THORNTON APRN [id number] 01/03/2014 11:38:00 01/03/2014 23:59:59 CLS Outpatient MELIZA THORNTON APRN [id number] 10/04/2013 10:40:00 10/04/2013 23:59:59 CLS Outpatient MELIZA THORNTON APRN [id number] 09/30/2013 10:53:00 09/30/2013 23:59:59 CLS Outpatient RACIEL BURROUGHS DO [id number] 08/23/2013 11:28:00 08/23/2013 23:59:59 CLS Outpatient MELIZA THORNTON APRN [id number] 08/23/2013 11:28:00 08/23/2013 23:59:59 CLS Outpatient MELIZA THORNTON APRN N [id number] 06/07/2013 10:57:00 06/07/2013 23:59:59 CLS Outpatient YVES BLEVINS MD [id number] 12/09/2012 09:29:00 12/09/2012 23:59:59 CLS Outpatient MELIZA THORNTON APRN N [id number] 06/08/2012 11:34:00 06/08/2012 23:59:59 CLS Outpatient YVES BLEVINS MD [id number] 09/14/2017 12:14:00 Document Registration [id number] 08/29/2010 19:45:00 Document Registration [id number] 05/22/2016 13:06:00 Document Registration [id number] 09/30/2017 14:21:00 09/30/2017 23:59:59 CLS Outpatient CLAY BRENNAN MD [facility] LAB E11.621,E11.42 [id number] 09/30/2017 11:49:00 09/30/2017 23:59:59 CLS Outpatient CLAY BRENNAN MD [facility] WOUNDCARE [id number] 09/25/2017 14:07:00 09/25/2017 16:36:00 DIS Emergency WERNER DRIVER APRN [facility] ER RIGHT BIG TOE INFECTION [id number] 09/18/2017 11:20:00 09/20/2017 16:20:00 DIS Inpatient KRISTINA RODRÍGUEZ MD [facility] 4TH FOOT INFECTION EXCESS BENZODIAZIPAN ADMIN [id number] 04/26/2015 10:19:00 04/26/2015 12:00:00 DIS Outpatient SIENA PAEZ MD [facility] WOUNDCARE [id number] 04/10/2015 12:43:00 04/10/2015 23:59:59 CLS Outpatient SIENA PAEZ MD [facility] RAD PAD [id number] 04/16/2012 23:32:00 Document Registration [id number] 02/18/2012 10:55:00 Document Registration [id number] 01/10/2011 00:00:00 Document Registration [id number] 12/10/2010 00:00:00 Document Registration [id number] 11/04/2010 12:05:00 Document Registration [id number] 11/03/2010 14:53:00 Document Registration [id number] 10/03/2010 15:10:00 Document Registration [id number] 09/10/2010 09:38:00 Document Registration [id number] 09/04/2010 14:30:00 Document Registration [id number] 09/01/2010 11:50:00 Document Registration [id number] 08/12/2010 19:14:00 Document Registration [id number] 09/01/2017 15:20:00 09/01/2017 23:59:59 CLS Outpatient GEN HERNANDEZ, YVES [facility] [id number] 09/14/2017 12:14:00 09/18/2017 10:33:00 DIS Inpatient Juliana Buckner [facility] MED-SURG [id number] 08/28/2017 12:01:00 08/30/2017 14:50:00 DIS Inpatient Nataly Pablo [facility] MED-SURG [id number] 12/05/2016 03:10:00 12/05/2016 04:42:00 DIS Outpatient BRIDGER LAWRENCE [facility] [place] [id number] 12/05/2016 03:31:06 Document Registration [id number] 09/16/2017 10:21:00 Document Registration
== END 2017-10-05 14:15 | disposition left against medical advice (07) ==
LOC: EDUNIT# 14:12 → ER 14:13
DX: L81.9 Disorder of pigmentation, unspecified (principal)

== ENCOUNTER → 2017-10-06 | Outpatient (CLI) | payer MEDICARE, MEDICAID | LOC: WOUNDCARE 13:53 | PROVIDERS: ATTEND Surgery | DX: E11.621 Type 2 diabetes mellitus with foot ulcer (principal); L97.512 Non-pressure chronic ulcer of other part of right foot with fat layer exposed; L97.514 Non-pressure chronic ulcer of other part of right foot with necrosis of bone; M86.271 Subacute osteomyelitis, right ankle and foot; E11.42 Type 2 diabetes mellitus with diabetic polyneuropathy; F20.9 Schizophrenia, unspecified | CPT/HCPCS: 11042; 11044 ==

== ENCOUNTER → 2017-10-14 | Outpatient (CLI) | payer MEDICARE, MEDICAID | LOC: WOUNDCARE 12:56 | PROVIDERS: ATTEND Surgery | DX: E11.621 Type 2 diabetes mellitus with foot ulcer (principal); L97.514 Non-pressure chronic ulcer of other part of right foot with necrosis of bone; E11.42 Type 2 diabetes mellitus with diabetic polyneuropathy; L97.512 Non-pressure chronic ulcer of other part of right foot with fat layer exposed; F20.9 Schizophrenia, unspecified; M86.271 Subacute osteomyelitis, right ankle and foot | CPT/HCPCS: 11042 ==

== ENCOUNTER → 2017-10-21 | Outpatient (CLI) | payer MEDICARE, MEDICAID | LOC: WOUNDCARE 13:03 | PROVIDERS: ATTEND Surgery | DX: E11.621 Type 2 diabetes mellitus with foot ulcer (principal); L97.514 Non-pressure chronic ulcer of other part of right foot with necrosis of bone; E11.42 Type 2 diabetes mellitus with diabetic polyneuropathy; L97.512 Non-pressure chronic ulcer of other part of right foot with fat layer exposed; F20.9 Schizophrenia, unspecified; M86.271 Subacute osteomyelitis, right ankle and foot | CPT/HCPCS: 11044; 87070; 87075; 87077; 87186; 87205 ==

== ENCOUNTER 2018-09-04 20:45 | Emergency (ER) | payer MEDICARE, MEDICAID ==
[~2018-09-04] VITALS: Ht 177.8 cm; Wt 102.1 kg
[~2018-09-04 20:45] MED LIST changes: -AMLO10TA2 PO; +AMLO10TA7 PO; +DIVA-76 PO; -DIVA500T7 PO; +METF-399 PO; -METF10002 PO; -PIOG45TA18 PO; +PIOG45TA65 PO; -ROPI3TAB2 PO; +ROPI3TAB4 PO
[2018-09-04] MEDS ORDERED: KETOROLAC 60 MG/2 ML VIAL IM STA (20:57)
[2018-09-04] MEDS ORDERED: ACETAMINOPHEN 650 MG SUPP (TYLENOL) PR STA (20:57)
--- NOTE | 2018-09-04 21:12 | ED Lower Extremity ---
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 PT HAS TO BE RE-DIRECTED MX TIMES DURING TRIAGE TO ANSWER QUESTIONS HE JUST KEPT STATING, "I'M IN PAIN." STATES HE HAD 1 BEER TODAY. PT EYES ARE GLOSSY, RED AND PT DROWSY. Nursing Sepsis Screen: No Definite Risk History of Present Illness Date Seen by Provider: Sep 04, 2018 Time Seen by Provider: 20:55 Initial Comments 43-year-old male presents for left rib pain. He states that he was walking up the stairs to his mother's trailer when he tripped falling and landing on his left ribs. He denies loss of consciousness, head injury, or any additional injuries. He reports having one beer today and smoking marijuana approximately every other day, he denies using it today. Onset: just prior to arrival Severity: mild Method of Injury: fell Allergies and Home Medications Allergies Coded Allergies: latex (Unverified Allergy, Intermediate, 08/12/10) Haloperidol Lactate (Unverified Allergy, Mild, 08/12/10) chlorpromazine HCl (Unverified Allergy, Mild, 08/12/10) haloperidol (Unverified Allergy, Mild, 08/12/10) Home Medications Amitriptyline HCl 75 Mg Tablet, 75 MG PO HS, (Reported) Amlodipine Besylate 10 Mg Tablet, 10 MG PO DAILY, (Reported) Benztropine Mesylate 1 Mg Tablet, 1 MG PO TID, (Reported) Clindamycin HCl 300 Mg Capsule, 300 MG PO TID Prescribed by: WERNER DRIVER on 09/25/17 1619 Divalproex Sodium 500 Mg Tablet.dr, 500 MG PO QID, (Reported) Duloxetine HCl 60 Mg Capsule.dr, 60 MG PO DAILY, (Reported) Hydrocodone/Ibuprofen 1 Each Tablet, 1 TAB PO TID PRN for PAIN-MODERATE, ( Reported) Lisinopril/Hydrochlorothiazide 1 Each Tablet, 1 TAB PO DAILY, (Reported) Metoprolol Succinate 50 Mg Tab.er.24h, 50 MG PO DAILY, (Reported) Paliperidone 6 Mg Tab.er.24, 6 MG PO DAILY, (Reported) Pregabalin 150 Mg Capsule, 150 MG PO BID, (Reported) Ropinirole HCl 3 Mg Tablet, 3 MG PO HS, (Reported) Tramadol HCl 50 Mg Tablet, 50 MG PO Q8H PRN for PAIN-MODERATE Prescribed by: PAULETTE KAPLAN on 09/04/18 [id number] Patient Home Medication List Home Medication List Reviewed: Yes Review of Systems Constitutional: no symptoms reported, see HPI Respiratory: see HPI, other (pain lateral left ribs) All Other Systems Reviewed Negative Unless Noted: Yes Past Lmtdhhj-Qbomgg-Snrvom Hx Past Med/Social Hx: Reviewed Nursing Past Med/Soc Hx Patient Social History Alcohol Use: Regular Use Recreational Drug Use: Yes (PAST HX OF MULTIPLE DRUGS) Drug of Choice: METH, Marijuana Type Used: Cigarettes Recent Foreign Travel: No Contact w/Someone Who Travel: No Recent Infectious Disease Expo: No Recent Hopitalizations: Yes ([facility], TROUBLE. O.D.' [place] 2003) Past Medical History Surgeries: Yes (RIGHT HAND, amputation right little toe) Respiratory: No Currently Using CPAP: No Currently Using BIPAP: No Cardiac: No Neurological: Yes Reproductive Disorders: No Gastrointestinal: No Musculoskeletal: Yes Endocrine: Yes (was diabetic) HEENT: No Cancer: No Psychosocial: Yes (parnoid) Bipolar, Schizophrenia, Violent Behavior Blood Disorders: No Family Medical History Diabetes Physical Exam Vital Signs Vital Signs - First Documented 09/04/18 09/04/18 20:45 21:55 Temp 96.8 Pulse 86 Resp 18 B/P (MAP) 190/130 (150) Pulse Ox 98 Capillary Refill : Less Than 3 Seconds Height, Weight, BMI Height: 5'10.00" Weight: 225lbs. 0oz. 102.493848uu; 40.7 BMI Method:Stated General Appearance: WD/WN, no apparent distress Cardiovascular: normal peripheral pulses, regular rate, rhythm Respiratory: lungs clear, normal breath sounds, other (tender to palpation left lateral and posterior ribs. No crepitus or ecchymosis) Gastrointestinal: normal bowel sounds, non tender, soft Hips: bilateral hip non-tender, bilateral hip normal inspection, bilateral hip normal range of motion Legs: bilateral leg non-tender, bilateral leg normal inspection, bilateral leg normal range of motion Neurologic/Psychiatric: no motor/sensory deficits, alert, normal mood/affect, oriented x 3 Skin: normal color, warm/dry Progress/Results/Core Measures Results/Orders My Orders Orders - EUSEBIO,PAULETTE PVC LOADER Ribs, Left 2-3 Views (09/04/18 20:57) Ketorolac Injection (Toradol Injection) (09/04/18 20:57) Acetaminophen Tablet/Caplet (Tylenol T (09/04/18 21:19) Rx-Tramadol Hcl (Rx-Ultram) (09/04/18 21:44) Vital Signs/I&O 09/04/18 09/04/18 20:45 21:55 Temp 96.8 96.8 Pulse 86 80 Resp 18 18 B/P (MAP) 190/130 (150) 165/100 (121) Pulse Ox 98 Blood Pressure Mean: 150 Diagnostic Imaging Diagonstic Imaging: Xray Plain Films/CT/US/NM/MRI: other (left ribs) Comments NAME: KALEJAVIER Benny [facility] REC#: [id number] PT STATUS: REG ER : 1975 PHYSICIAN: PAULETTE KAPLAN ADMIT DATE: 09/04/18/ER Draft Date of Exam:09/04/18 RIBS, LEFT 2-3 VIEWS INDICATION: Left-sided pain, fall. Time of exam: 9:16 PM Multiple views of the left ribs were obtained. There is a minimally displaced fracture involving the left posterior sixth rib. The sixth rib also appears to have a fracture more anteriorly. There appears to be a nondisplaced fracture involving the left posterior eighth rib. No parenchymal contusion, effusion or pneumothorax is seen. IMPRESSION: Left sixth and eighth rib fractures. Dictated on workstation # [id number] Dict: 09/04/182126 Trans: 09/04/182131 [id number] Interpreted by: DAVID PHILLIP MD Electronically signed by: Reviewed: Reviewed by Me Departure Impression Primary Impression: Contusion of rib on left side Qualified Codes: S20.212A - Contusion of left front wall of thorax, initial encounter Additional Impressions: Fall Qualified Codes: W19.XXXA - Unspecified fall, initial encounter Left rib fracture Qualified Codes: S22.42XA - Multiple fractures of ribs, left side, initial encounter for closed fracture Disposition: HOME, SELF-CARE Condition: Improved Departure-Patient Inst. Decision time for Depature: 21:35 Referrals: [facility] (PCP/Family) Primary Care Physician Patient Instructions: Rib Fracture (DC) Add. Discharge Instructions: Alternate between heat and ice to your left ribs. You may take ibuprofen 600 mg alternating with Tylenol 650 mg every 4 hours for pain. For additional pain may take tramadol 1 tablet every 8 hours. Use a pillow and apply pressure to the area of tenderness, every hour when awake take 10 deep breaths and cough. Follow-up with your primary care provider if symptoms are not improving or worsen. Limit use of alcohol and marijuana. Return to emergency department for difficulty breathing, fever greater than 101 , or new problems/concerns. All discharge instructions reviewed with patient and/or family. Voiced understanding. Scripts Tramadol HCl (Tramadol HCl) 50 Mg Tablet 50 MG PO Q8H PRN for PAIN-MODERATE, #20 TAB 0 Refills Prov: PAULETTE KAPLAN 09/04/18 Copy Copies To 1: YVES BLEVINS MD, AMY ARNP Sep 04, 2018 21:12
[2018-09-04] MEDS ORDERED: ACETAMINOPHEN 325 MG TABLET PO STA (21:19)
--- NOTE | 2018-09-04 21:32 | Diagnostic Imaging Report ---
INDICATION: Left-sided pain, fall. Time of exam: 9:16 PM Multiple views of the left ribs were obtained. There is a minimally displaced fracture involving the left posterior sixth rib. The sixth rib also appears to have a fracture more anteriorly. There appears to be a nondisplaced fracture involving the left posterior eighth rib. No parenchymal contusion, effusion or pneumothorax is seen. IMPRESSION: Left sixth and eighth rib fractures. Dictated by: Dictated on workstation # [id number]
[2018-09-04] MEDS ORDERED: TRAM50TA2 PO (21:43)
[2018-09-04] MEDS ORDERED: RX-TRAMADOL 50 MG (ULTRAM) TAB PPK#4 PO STA (21:44)
[2018-09-04 21:55] VITALS: BP 165/100
== END 2018-09-04 21:55 | disposition home or self-care (01) ==
LOC: EDUNIT# 20:45 → ER 20:46
DX: S22.42XA Multiple fractures of ribs, left side, initial encounter for closed fracture (principal); E11.9 Type 2 diabetes mellitus without complications; F31.9 Bipolar disorder, unspecified; F20.9 Schizophrenia, unspecified; Z89.421 Acquired absence of other right toe(s); Z91.040 Latex allergy status; Z88.8 Allergy status to other drugs, medicaments and biological substances; W10.8XXA Fall (on) (from) other stairs and steps, initial encounter
CPT/HCPCS: 71100

== ENCOUNTER 2018-09-15 22:14 | Inpatient (IN) | payer MEDICARE, MEDICAID ==
[~2018-09-15] VITALS: Ht 177.8 cm; Wt 101.7 kg
[~2018-09-15 22:14] MED LIST changes: +ROCURONIUM 10 MG/ML 5 ML SYRINGE IV ONE; +SUCCINYLCHOLINE INJ 100 MG/5 ML SYR INJ ONE
[2018-09-15] MEDS ORDERED: LACTATED RINGERS 1,000 ML IV ONE ×2 (22:17→23:22)
--- OUTSIDE RECORDS SUMMARY | 2018-09-15 22:19 | XMS REPORT | Clinical Summary ---
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 Active duloxetine (CYMBALTA) 60 Take 1 30 capsule 0 MG capsule capsule (60 2 mg total) by mouth daily. Active gabapentin (NEURONTIN) Take 2 90 capsule 0 300 MG capsule capsules (600 2 mg total) by mouth 3 (three) times daily. Active lisinopril Take 1 tablet 30 tablet 0 (PRINIVIL,ZESTRIL) 10 MG (10 mg total) 2 tablet by mouth daily. Active ziprasidone (GEODON) 80 Take 1 60 capsule 0 MG capsule capsule (80 2 mg total) by mouth 2 (two) times daily with meals. Active zolpidem (AMBIEN) 10 MG Take 1 tablet 15 tablet 1 tablet (10 mg total) 2 by mouth nightly as needed for Sleep (can be given 30' after the Trazodone). Active metformin (GLUCOPHAGE) Take 1 tablet 60 tablet 0 500 MG tablet (500 mg 2 total) by mouth 2 (two) times daily with meals. Active Problems Problem Noted Date Schizoaffective disorder, depressive type 03/04/2012 Mood disorder 03/02/2012 Social History Date Tobacco Use Types Packs/Day Years Used Current Every Day Smoker 30 Tobacco Cessation: Ready to Quit: No; Counseling Given: Yes Alcohol Use Drinks/Week oz/Week Comments Yes 1 Standard 0.5 drinks or equivalent Sex Assigned at Date Recorded Not on file Industry Job Start Date Occupation Not on file Not on file Not on file Travel End Travel History Travel Start No recent travel history available. Last Filed Vital Signs Time Taken Vital Sign Reading 03/12/2012 6:27 AM CDT Blood Pressure 127/88 03/12/2012 6:27 AM CDT Pulse 75 03/12/2012 6:27 AM CDT Temperature 36.5 C (97.7 F) 03/12/2012 6:27 AM CDT Respiratory Rate 16 03/10/2012 9:15 AM CDT Oxygen Saturation 96% - Inhaled Oxygen - Concentration 03/10/2012 6:35 AM CDT Weight 85.3 kg (188 lb) 03/10/2012 6:35 AM CDT Height 177.8 cm (5' 10") 03/10/2012 6:35 AM CDT Body Mass Index 26.98 Plan of Treatment Health Maintenance Due Date Last Done Comments Varicella Vaccines (1 of 1986 2 - 13+ 2-dose series) DTaP,Tdap,and Td Vaccines 1992 (1 - Tdap) Influenza Vaccine (Season 01/09/2019 Ended) Results Not on filefrom Last 3 Months Advance Directives For more information, please contact: [facility] [address] [address] Date Inactivated Comments Code Status Date Activated 03/12/2012 4:11 PM Full Code 03/01/2012 11:18 PM
--- OUTSIDE RECORDS SUMMARY | 2018-09-15 22:20 | XMS REPORT ---
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 Name Role Phone TESHA STACY Unavailable PROBLEMS Type Condition ICD9-CM Code QST77-NP Code Onset Dates Condition Status SNOMED Code Problem Schizoaffective disorder, depressive type F25.1 Active 88747487 Problem Personality disorder F60.9 Active 24483729 Problem Chronic hepatitis C without hepatic coma B18.2 Active 747263269 Problem GERD (gastroesophageal reflux disease) K21.9 Active 235231265 Problem Restless legs syndrome G25.81 Active 563451910 Problem COPD (chronic obstructive pulmonary disease) J44.9 Active 44434131 Problem PAD (peripheral artery disease) I73.9 Active 534730133 Problem HTN (hypertension) I10 Active 49717953 Problem Constipation, unspecified constipation type K59.00 Active 72746217 Problem ED (erectile dysfunction) N52.9 Active 999619655 Problem 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 679952828 Problem Sinusitis, unspecified chronicity, unspecified location J32.9 Active 55353781 Problem DM neuro manif type II E11.49 Active 90300138 Problem Ulcer of right foot, unspecified ulcer stage L97.519 Active 49887281 ALLERGIES No Information ENCOUNTERS Encounter Location Date Diagnosis [facility] [id number] [address] September, [facility] [id number] [address] 34[address] Jul, [facility] [address], [place] [address] Jul, [facility] [id number] [address] 5250 Jul, [facility] [id number] [place] [address] 21698- 2616 Jul, Back pain M54.9 [facility] [id number] [place] [address] 48479- 9172 Jul, Polyneuropathy in diseases classified elsewhere G63 [facility] [id number] [place] [address] 63192 -7744 Jul, Constipation, unspecified constipation type K59.00 and Burn T30.0 [facility] [id number] [place] [address] 08223- 9703 Jul, [facility] [id number] [place] [address] 28180- 0264 Jun, 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 complication E11.49 [facility] [id number] [place] [address] 89272- 2229 Jun, Back pain M54.9 [facility] [id number] [place] [address] 77484- 2260 Jun, 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 complication E11.49 [facility] [id number] [place] [address] 46723- 3126 Jun, [facility] [id number] [place] [address] 01445- 6427 Jun, [facility] [id number] [place] [address] 46753- 1993 Jun, [facility] [id number] [place] [address] 93119- 4295 May, [facility] [id number] [place] [address] 99838- 4045 May, Back pain M54.9 [facility] [id number] [place] [address] 35653- 7731 May, [facility] [id number] [place] [address] 32804- 7285 May, 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 complication E11.49 ; Chronic hepatitis C without hepatic coma B18.2 and HTN ( hypertension) I10 [facility] [id number] [place] [address] 37214- 3216 Apr, Back pain M54.9 [facility] [address] 23800- 7518 Apr, [facility] [address] 38098- 1254 Apr, Polyneuropathy in diseases classified elsewhere G63 [facility] [address] 76013- 3135 Mar, Back pain M54.9 [facility] [id number] [place] [address] 17232- 0731 Mar, [facility] [address] 48582- 5674 Mar, Back pain M54.9 [facility] [id number] [place] [address] 09030- 3373 Mar, [facility] [id number] [place] [address] 71390- 4738 Mar, [facility] [id number] [place] [address] 62070- 2567 Mar, Polyneuropathy in diseases classified elsewhere G63 [facility] [id number] [place] [address] 06014- 9284 Feb, Back pain M54.9 [facility] [id number] [place] [address] 55022- 1720 Jan, Back pain M54.9 [facility] [id number] [place] [address] 30977- 3447 Jan, [facility] [id number] [place] [address] 55388- 9283 Jan, [facility] [id number] [place] [address] 06386- 7163 Dec, Back pain M54.9 [facility] [id number] [place] [address] 17326- 7277 Dec, [facility] [id number] [place] [address] 33132- 6099 Dec, Upper respiratory tract infection, unspecified type J06.9 [facility] [id number] [place] [address] 58843- 1326 Dec, [facility] [address] 05699 -2383 Dec, Acute suppurative otitis media of right ear without spontaneous rupture of tympanic membrane, recurrence not specified H66.001 and Acute nasopharyngitis J00 [place] [address] 12591- 5309 Dec, Back pain M54.9 [facility] [id number] [place] [address] 02657- 6891 Dec, Foot infection L08.9 and 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 complication E11.49 [place] [id number] [place] [address] 99897- 6703 Nov, Cellulitis of toe of right foot L03.031 ; Polyneuropathy in diseases classified elsewhere G63 and HTN (hypertension) I10 [facility] [id number] [place] [address] 82946- 8660 Nov, [place] [id number] [place] [address] 74077- 0429 Nov, [place] [id number] [place] [address] 26627- 3068 Nov, Back pain M54.9 [facility] [id number] [place] [address] 37385- 9376 Nov, Shortness of breath R06.02 [facility] [id number] [place] [address] 0012 Nov, [facility] [id number] [place] [address]- 3094 Oct, [facility] [address] [place] [address]- 4907 Oct, [facility] [id number] [place] [address] 84380- 8210 Oct, [facility] [id number] [place] [address], [place] [address]- 3492 Oct, [facility] [id number] [place] [address] 17529- 3186 Oct, [facility] [id number] [place] [address] 64276- 7943 Oct, Back pain M54.9 [facility] [id number] [place] [address] 31899- 5397 Oct, Back pain M54.9 [facility] [id number] [place] [address] 12268- 0293 Oct, [facility] [address] [address]- 0975 September, [facility] [address], [place] [address]- 3469 September, [facility] [address], [place] [address]- 6005 September, [facility] [address], [place] [address]- 3502 September, 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 complication E11.49 and Hypotension, unspecified hypotension type I95.9 [facility] [address], [place] [address]- 3565 September, [facility] [id number] [address]- 2095 September, [facility] [id number] [place] [address] 99996- 7894 September, Back pain M54.9 [facility] [id number] [place] [address] 64929- 4875 Aug, [facility] [id number] [place] [address] 86887- 9938 Aug, Acute cystitis with hematuria N30.01 ; Ulcer of right foot, unspecified ulcer stage L97.519 ; HTN (hypertension) I10 ; COPD (chronic obstructive pulmonary disease) J44.9 and DM neuro manif type II E11.49 [facility] [id number] [place] [address] 48767- 6931 Aug, Back pain M54.9 [facility] [id number] [place] [address] 27684- 0252 Jul, [facility] [id number] [place] [address] 21706- 1609 Jul, Back pain M54.9 [facility] [id number] [place] [address] 71227- 2182 Jul, [facility] [id number] [place] [address] 50944- 2275 Jul, DM neuro manif type II E11.49 and Ulcer of right foot, unspecified ulcer stage L97.519 [facility] [id number] [place] [address] 12576- 1299 Jun, [facility] [id number] [place] [address] 88982- 0898 Jun, [facility] [id number] [place] [address] 49007- 0967 May, 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 complication E11.49 ; GERD (gastroesophageal reflux disease) K21.9 and PAD ( peripheral artery disease) I73.9 [facility] [id number] [place] [address] 68413- 3782 May, Decubital ulcer L89.90 ; Diabetes E11.9 and GERD ( gastroesophageal reflux disease) K21.9 [facility] [id number] [place] [address] 43465- 2210 May, [facility] [address] 07875- 8436 Apr, [facility] [id number] [place] [address] 37090- 7987 Mar, [facility] [address] 17688- 5005 Mar, [facility] [address] 00215- 5953 Feb, [facility] [address] 77110- 3803 Feb, [facility] [id number] [place] [address] 91414- 8793 Jan, [facility] [address] 14721- 0647 Jan, HTN (hypertension) I10 [facility] [id number] [place] [address] 81561- 4365 Jan, [facility] [id number] [place] [address] 49676- 8684 Dec, Back pain M54.9 [facility] [id number] [place] [address] 79060- 5371 Dec, Back pain M54.9 [facility] [id number] [place] [address] 26427 -8327 Dec, Encounter for immunization Z23 and Puncture wound of right foot, initial encounter S91.331A [facility] [address] 85746- 4891 Dec, [facility] [id number] [place] [address] 80264- 6797 Nov, [facility] [id number] [place] [address] 88883- 9799 Nov, COPD (chronic obstructive pulmonary disease) J44.9 [facility] [id number] [place] [address] 92842- 4531 Nov, [facility] [id number] [place] [address] 95476- 1296 Oct, [facility] [id number] [place] [address] 96647- 8597 Oct, [facility] [id number] [place] [address] 92175- 1623 September, Onychomycosis B35.1 and DM neuro manif type II E11.49 [facility] [id number] [place] [address] 63380- 5264 September, [facility] [id number] [place] [address] 94814- 1254 Aug, [facility] [id number] [place] [address] 02578- 6559 Jul, Sinusitis, unspecified chronicity, unspecified location J32.9 and Cough R05 [facility] [id number] [place] [address] 05861- 4051 Jul, Back pain M54.9 [facility] [id number] [place] [address] 26653- 4317 Jun, Back pain M54.9 [facility] [id number] [place] [address] 34275- 6700 Jun, COPD (chronic obstructive pulmonary disease) J44.9 [facility] [id number] [place] [address] 68468- 6519 May, [place] [address] [address]- 5193 May, [facility] [address], [place] [address]- 6672 May, Back pain M54.9 [facility] [address], [place] [address]- 7218 16 May, 2016 [facility] [id number] [place] [address] 11947- 9504 May, [facility] [address] [address]- 8654 May, Diabetes E11.9 [facility] [id number] [place] [address] 37714- 9134 11 May, 2016 Diabetes E11.9 ; GERD [...] Need for hepatitis C screening test Z11.59 [facility] [address], [place] [address]- 4949 May, HTN (hypertension) I10 [facility] [address], [place] [address]- 6226 Apr, [facility] [address], [place] [address]- 8666 Apr, [facility] [id number] [address]- 2759 Apr, [facility] [address], [place] [address]- 8899 Apr, [facility] [address], [place] [address]- 7097 Apr, [facility] [id number] [place] [address] 02481- 7289 Mar, [facility] [address] 64211- 1933 Mar, [facility] [id number] [place] [address] 82601- 9445 Mar, [facility] [address] 13172- 6203 Mar, [facility] [id number] [place] [address] 39399- 1559 Mar, Dental examination Z01.20 [facility] [address] 04313- 8793 Feb, [facility] [address] 15088- 1873 Feb, [facility] [id number] [place] [address] 18256- 0198 Feb, Back pain M54.9 [place] [address] 22843- 4558 Jan, [facility] [id number] [place] [address] 05481- 5283 Jan, [facility] [id number] [place] [address] 23516- 2943 Dec, Diabetes E11.9 ; GERD (gastroesophageal reflux disease) K21.9 ; ED (erectile dysfunction) N52.9 ; HTN (hypertension) I10 ; Insomnia G47.00 ; COPD (chronic obstructive pulmonary disease) J44.9 ; Neuropathy G62.9 and Bipolar depression F31.30 [facility] [id number] [place] [address] 62357- 7561 Dec, 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 complication E11.49 and Onychomycosis B35.1 [place] [id number] [place] [address] 46288- 8143 Dec, [facility] [address] [facility] [id number] [place] [address]- 1492 Dec, [facility] [address] [facility] [id number] [place] [address]- 0139 Dec, [facility] [id number] [place] [address]- 5238 Dec, [facility] [address] [facility] [id number] [address]- 8899 Nov, [facility] [address] [facility] [id number] [place] [address], [place] [address]- 8444 Nov, [facility] [id number] [place] [address]- 7257 Oct, [facility] [address] [address]- 1581 Oct, [facility] [address], [place] [address]- 1833 Oct, Back pain M54.9 [facility] [address], [place] [address]- 1663 Oct, [facility] [id number] [address]- 8156 Oct, [facility] [address], [place] [address]- 4874 Oct, [facility] [id number] [address]- 5584 Oct, HTN (hypertension) I10 [facility] [address], [place] [address]- 3527 Oct, Back pain M54.9 [facility] [id number] [address]- 4923 Oct, Chronic pain syndrome G89.4 [facility] [id number] [place] [address] 87403- 6992 September, Back pain M54.9 [facility] [address] 14874- 3408 September, HTN (hypertension) I10 [facility] [id number] [place] [address] 53297- 5217 29 Aug, 2015 Porokeratosis Q82.8 ; Onychomycosis B35.1 and 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 complication E11.49 [facility] [id number] [place] [address] 34305- 0197 Aug, GERD (gastroesophageal reflux disease) K21.9 ; Diabetes E11.9 ; HTN (hypertension) I10 ; Insomnia G47.00 ; Restless legs syndrome G25.81 ; COPD (chronic obstructive pulmonary disease) J44.9 ; Back pain M54.9 and Bipolar 1 disorder F31.9 [facility] [id number] [place] [address] 45418- 3222 Aug, [facility] [id number] [place] [address] 12616- 5696 Aug, [facility] [id number] [place] [address] 67286- 1176 Aug, [facility] [id number] [place] [address] 37056- 6469 Aug, [facility] [id number] [place] [address] 79587- 3450 Jul, [facility] [id number] [place] [address] 98300- 0198 Jul, [facility] [id number] [place] [address] 02532- 2863 30 Jul, 2015 [facility] [id number] [place] [address] 40982- 0233 16 Jul, 2015 [facility] [address] 96550- 1469 Jul, [facility] [address] [address]- 6804 Jul, [facility] [id number] [place] [address] 62939- 4503 Jun, Decubital ulcer L89.90 ; Diabetes E11.9 ; Back pain M54.9 ; HTN (hypertension) I10 and COPD (chronic obstructive pulmonary disease) J44.9 [facility] [address] [address]- 2607 Jun, [facility] [id number] [place] [address] 44699- 2538 Jun, [facility] [id number] [place] [address] 64037- 7812 Jun, [facility] [id number] [place] [address] 93104- 0739 Jun, [facility] [id number] [place] [address] 67476- 3379 Jun, Diabetes E11.9 ; Insomnia G47.00 ; Decubital ulcer L89.90 ; GERD (gastroesophageal reflux disease) K21.9 ; Back pain M54.9 ; Superficial fungus infection of skin B36.9 and HTN (hypertension) I10 [address] [id number] [id number] Jun, Dental examination Z01.20 [facility] [address], [place] [address]- 2637 May, [facility] [id number] [place] [address] 39052- 5410 May, [facility] [id number] [place] [address] 52035- 5213 May, [facility] [id number] [place] [address] 86715- 6724 May, Diabetes E11.9 ; HTN (hypertension) I10 and Decubital ulcer L89.90 [place] [id number] [place] [address] 69166- 8988 May, HTN (hypertension) I10 ; Decubital ulcer L89.90 and Diabetes E11.9 [place] [address] 51424- 9146 Apr, Diabetes E11.9 ; GERD (gastroesophageal reflux disease) K21.9 ; Back pain M54.9 ; HTN (hypertension) I10 ; Restless legs syndrome G25.81 and Decubital ulcer L89.90 [place] [address] 83194- 7386 17 Apr, 2015 [place] [address] 90114- 1097 Apr, Diabetes E11.9 ; HTN (hypertension) I10 ; Restless legs syndrome G25.81 ; GERD (gastroesophageal reflux disease) K21.9 and COPD ( chronic obstructive pulmonary disease) J44.9 [place] [id number] [place] [address] 35151- 3907 Mar, [place] [address] 60437- 3128 Mar, [place] [address] [address]- [address] Mar, Diabetes E11.9 ; Abscess L02.91 and Restless legs syndrome G25.81 [place] [id number] [place] [address] 867[address]- [address] Mar, [place] [address] [address] Feb, GERD (gastroesophageal reflux disease) K21.9 ; Back pain M54.9 ; ED (erectile dysfunction) N52.9 ; Diabetes E11.9 ; HTN (hypertension) I10 and Insomnia G47.00 [place] [address] [address]- [address] Feb, [facility] [id number] [place] [address]- 1912 Feb, [facility] [id number] [place] [address]- [address] Jan, [facility] [id number] [place] [address] [phone]- 5967 Jan, Diabetes 250.00 ; Nondependent cannabis abuse, continuous 305.21 ; Cough 786.2 ; Schizoaffective disorder, unspecified 295.70 ; Sciatica 724.3 ; Other, mixed, or unspecified nondependent drug abuse, unspecified 305.90 ; Chronic pain 338.29 ; GERD (gastroesophageal reflux disease) 530.81 and HTN (hypertension) 401.9 [place] [id number] [place] [address] 7[address]- [address] Jan, [facility] [id number] [place] [address] 677[address]- 8418 Jan, [facility] [id number] [place] [address] 66920- 2512 Jan, Chronic pain associated with significant psychosocial dysfunction 338.4 ; Diabetes mellitus without mention of complication, type I [ juvenile type], uncontrolled 250.03 ; Benign essential hypertension 401.1 ; Schizoaffective disorder, unspecified 295.70 ; Wheezing 786.07 ; Ear ache 388.70 ; Cough 786.2 ; Sciatica 724.3 and Foot pain, bilateral 729.5 [facility] [id number] [place] [address] [address] Dec, [place] [id number] [place] [address]- 7286 Dec, [facility] [id number] [place] [address]- 8276 Dec, [facility] [id number] [place] [address]- 9500 Dec, [place] [address] [address] Dec, [facility] [address] [address] Nov, Elevated liver enzymes 790.5 [facility] [address] [address] 9[address] Nov, [facility] [id number] [place] [address]- 0500 Nov, [facility] [address] [address] 47[address] Nov, [facility] [address] [address] Nov, Benign essential hypertension 401.1 ; Diabetes mellitus without mention of complication, type I [juvenile type], uncontrolled 250.03 and Nondependent cannabis abuse, continuous 305.21 [facility] [address] [address] Oct, Cellulitis 682.9 and Benign essential hypertension 401.1 [facility] [address] [address] Oct, [facility] [address], [place] [address] 1049 September, [facility] [address], [place] [address] 59[address] September, [facility] [address] [address] 484[address] Aug, [facility] [address] [address]- 4[address] Aug, [facility] [address], [place] [address] 3708 Aug, [facility] [address], [place] [address] Aug, [facility] [place] [facility] [address] [id number] [place] [address] 4[address] Jul, [facility] [place] [facility] [address] [id number] [place] [address]- 3870 Jul, [facility] [place] [facility] [address] [id number] [place] [address]- 4628 Jul, [facility] [place] [facility] [address] [id number] [place] [address]- 8868 Jul, [facility] [place] [facility] [address] [id number] [place] [address]- 5659 Jul, [facility] [place] [facility] [address] [id number] [place] [address]- 8099 Jul, [facility] [place] [facility] [address] [id number] [place] [address]- 6933 Jun, [facility] [place] [facility] [address] [id number] [place] [address]- 7178 Jun, [facility] [place] [facility] [address] [id number] [place] [address]- 2266 Jun, [facility] [place] [facility] [address] [id number] [place] [address]- 3156 Jun, [facility] [place] [facility] [address] [id number] [place] [address]- 5753 Jun, [facility] [place] [facility] [address] [id number] [place] [address]- 6316 May, [facility] [place] [facility] [address] [id number] [place] [address]- 3619 May, [facility] [place] [facility] [address] [id number] [place] [address]- 5146 May, [facility] [place] [facility] [address] [id number] [place] [address]- 9215 May, [facility] [place] [facility] [address] [id number] [place] [address]- 4572 May, [facility] [place] [facility] [address] [id number] [place] [address]- 4802 May, [facility] [place] [facility] [address] [id number] [place] [address]- 9819 May, [facility] [place] [facility] [address] [id number] [place] [address]- 8064 May, [facility] [place] [facility] [address] [id number] [place] [address]- 7971 Apr, [facility] [place] [facility] [address] [id number] [place] [address]- 0066 Apr, [facility] [place] [facility] [address] [id number] [place] [address]- 1253 Apr, [facility] [place] [facility] [address] [id number] [place] [address]- 6105 Apr, [facility] [place] [facility] [address] [id number] [place] [address]- 7102 Mar, [facility] [place] [facility] [address] [id number] [place] [address]- 0012 Mar, [facility] [place] [facility] [address] [id number] [place] [address]- 0005 Mar, [facility] [place] [facility] [address] [id number] [place] [address]- 1927 Mar, [facility] [place] [facility] [address] [id number] [address]- 5327 Feb, [facility] [place] [facility] [address] [id number] [place] [address]- 8580 Feb, [facility] [place] [facility] [address] [id number] [place] [address]- 3072 Feb, [facility] [place] [facility] [address] [id number] [address]- 4125 Feb, [facility] [place] [facility] [address] [id number] [place] [address]- 6194 Feb, [facility] [place] [facility] [address] [id number] [place] [address]- 9697 Feb, [facility] [place] [facility] [address] [id number] [place] [address]- 3876 Jan, [facility] [place] [facility] [address] [id number] [place] [address]- 2840 Jan, [facility] [place] [facility] [address] [id number] [place] [address]- 8054 Jan, [facility] [place] [facility] [address] [id number] [place] [address]- 9650 Jan, [facility] [place] [facility] [address] [id number] [place] [address]- 3802 Dec, [facility] [place] [facility] [address] [id number] [place] [address]- 8217 Dec, [facility] [place] [facility] [address] [id number] [place] [address]- 1496 Dec, [facility] [place] [facility] [address] [id number] [place] [address]- 2674 Dec, [facility] [place] [facility] [address] [id number] [place] [address]- 4187 Dec, [facility] [place] [facility] [address] [id number] [place] [address]- 4489 Dec, [facility] [place] [facility] [address] [id number] [place] [address]- 4292 Oct, [facility] [place] [facility] [address] [id number] [place] [address]- 1568 Oct, [facility] [place] [facility] [address] [id number] [place] [address]- 7114 September, [facility] [place] [facility] [address] [id number] [place] [address]- 8728 September, [facility] [place] [facility] [address] [id number] [place] [address]- 0229 September, [facility] [place] [facility] [address] [id number] [place] [address]- 5227 September, [facility] [place] [facility] [address] [id number] [place] 6667 September, [facility] [place] [facility] [address] [id number] [place] [address]- 3709 September, [facility] [place] [facility] [address] [id number] [place] [address]- 4783 Aug, [facility] [place] [facility] [address] [id number] [place] [address]- 9956 Aug, [facility] [place] [facility] [address] [id number] [place] [address]- 3472 Aug, [facility] [place] [facility] [address] [id number] [place] [address]- 3328 Aug, [facility] [place] [facility] [address] [id number] [place] [address]- 3171 Jul, [facility] [place] [facility] [address] [id number] [place] [address]- 9852 Jul, [facility] [place] [facility] [address] [id number] [place] [address]- 4373 Jun, [facility] [place] [facility] [address] [id number] [place] [address]- 3266 Jun, [facility] [place] [facility] [address] [id number] [place] [address]- 4802 May, [facility] [place] [facility] [address] [id number] [place] [address]- 7990 May, [facility] [place] [facility] [address] [id number] [place] [address]- 2478 Jan, [facility] [place] [facility] [address] [id number] [place] [address]- 2546 Dec, [facility] [address] [id number] [place] [address]- 4946 Jun, [facility] [address] [id number] [place] [address]- 2546 May, [facility] [address] [id number] [place] [address]- 1187 Nov, [facility] [address] [id number] [place] [address]- 4329 September, [facility] [address] [id number] [place] [address]- 5365 Aug, [facility] [address] [id number] [place] [address]- 3864 Aug, [facility] [address] [id number] [place] [address]- 5751 Aug, [facility] [address] [id number] [place] [address]- 4808 Aug, [facility] [address] [id number] [place] [address]- 5430 Nov, [facility] [address] [id number] [place] [address]- 5411 Oct, [facility] [address] [id number] [place] [address]- 9461 Jul, [facility] [address] [id number] [place] [address]- 1739 Feb, [facility] [address] [id number] [place] [address]- 7916 Feb, [facility] [address] [id number] [place] [address]- 2546 Apr, [facility] [address] [id number] [place] [address]- 7336 Apr, [facility] [address] [facility] [id number] [place] [address] Feb, [facility] [address] [facility] [id number] [address]- 7641 Feb, [facility] [address] [facility] [id number] [place] [id number]96 Jul, IMMUNIZATIONS No Known Immunizations SOCIAL HISTORY Never Assessed REASON FOR VISIT Eye Exam PLAN OF CARE VITAL SIGNS MEDICATIONS Unknown Medications RESULTS No Results PROCEDURES No Known procedures INSTRUCTIONS MEDICATIONS ADMINISTERED No Known Medications MEDICAL (GENERAL) HISTORY Type Description Date Medical History hypertension Medical History Type 2 Diabetes Medical History Hep C Medical History Depression Medical History Anxiety Medical History right foot wounds Surgical History Right little toe amputation Hospitalization History Psych hospitalizations(numerous) Hospitalization History for surgeries Hospitalization History UTI 08/27/17 Hospitalization History foot wound 09/2017
--- OUTSIDE RECORDS SUMMARY | 2018-09-15 22:21 | XMS REPORT ---
Author Author Migration, Doctor Organization [facility] Address Unknown Phone Unavailable Care Team Providers Care Aerodynamicist Name Role Phone Migration, Doctor Unavailable Unavailable PROBLEMS Type Condition ICD9-CM Code AMK90-DH Code Onset Dates Condition Status SNOMED Code Problem Schizoaffective disorder, depressive type F25.1 Active 95118523 Problem Personality disorder F60.9 Active 71156876 Problem Chronic hepatitis C without hepatic coma B18.2 Active 037202105 Problem GERD (gastroesophageal reflux disease) K21.9 Active 724243423 Problem Restless legs syndrome G25.81 Active 302158727 Problem COPD (chronic obstructive pulmonary disease) J44.9 Active 69072780 Problem PAD (peripheral artery disease) I73.9 Active 196991821 Problem HTN (hypertension) I10 Active 40336286 Problem Constipation, unspecified constipation type K59.00 Active 72900804 Problem ED (erectile dysfunction) N52.9 Active 368624761 Problem 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 710788293 Problem Sinusitis, unspecified chronicity, unspecified location J32.9 Active 74096248 Problem DM neuro manif type II E11.49 Active 34770368 Problem Ulcer of right foot, unspecified ulcer stage L97.519 Active 39614994 ALLERGIES No Information ENCOUNTERS Encounter Location Date Diagnosis [facility] [id number] [place] [address] 15342- 6948 September, [facility] [id number] [place] [address] 29903- 4995 Jul, [facility] [id number] [place] [address] 13476- 5149 Jul, [facility] [id number] [place] [address] 34579- 4149 Jul, [facility] [id number] [place] [address] 09937- 9542 Jul, Back pain M54.9 [facility] [id number] [place] [address] 50826- 8064 Jul, Polyneuropathy in diseases classified elsewhere G63 [facility] [id number] [place] [address] 98735 -2606 Jul, Constipation, unspecified constipation type K59.00 and Burn T30.0 [facility] [address] 93300- 9598 Jul, [facility] [id number] [place] [address] 96402- 2165 Jun, 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 complication E11.49 [facility] [id number] [place] [address] 87231- 5588 Jun, Back pain M54.9 [facility] [id number] [place] [address] 59603- 9141 Jun, 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 complication E11.49 [facility] [id number] [place] [address] 20060- 9741 Jun, [facility] [id number] [place] [address] 51480- 9344 Jun, [facility] [id number] [place] [address] 09970- 3034 Jun, [facility] [id number] [place] [address] 21327- 8217 May, [facility] [id number] [place] [address] 89567- 6587 May, Back pain M54.9 [facility] [id number] [place] [address] 12618- 2876 May, [facility] [id number] [place] [address] 38885- 7808 May, 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 complication E11.49 ; Chronic hepatitis C without hepatic coma B18.2 and HTN ( hypertension) I10 [facility] [id number] [place] [address] 90102- 7927 Apr, Back pain M54.9 [facility] [id number] [place] [address] 55740- 1561 Apr, [facility] [id number] [place] [address] 70685- 0914 Apr, Polyneuropathy in diseases classified elsewhere G63 [facility] [id number] [place] [address] 34811- 4018 Mar, Back pain M54.9 [facility] [id number] [place] [address] 79207- 3542 Mar, [facility] [id number] [place] [address] 02468- 9439 Mar, Back pain M54.9 [facility] [id number] [place] [address] 08633- 6301 Mar, [facility] [id number] [place] [address] 18591- 3867 Mar, [facility] [id number] [place] [address] 05656- 1656 Mar, Polyneuropathy in diseases classified elsewhere G63 [facility] [id number] [place] [address] 30220- 0578 Feb, Back pain M54.9 [facility] [id number] [place] [address] 97359- 3446 Jan, Back pain M54.9 [facility] [id number] [place] [address] 28127- 3011 Jan, [facility] [id number] [place] [address] 29919- 2462 Jan, [facility] [id number] [place] [address] 31991- 0948 Dec, Back pain M54.9 [facility] [id number] [place] [address] 31334- 1970 Dec, [facility] [id number] [place] [address] 01611- 5502 Dec, Upper respiratory tract infection, unspecified type J06.9 [facility] [id number] [place] [address] 69757- 7876 Dec, [facility] [id number] [place] [address] 43128 -9758 Dec, Acute suppurative otitis media of right ear without spontaneous rupture of tympanic membrane, recurrence not specified H66.001 and Acute nasopharyngitis J00 [facility] [id number] [place] [address] 95723- 5292 Dec, Back pain M54.9 [facility] [id number] [place] [address] 99664- 2310 Dec, Foot infection L08.9 and 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 complication E11.49 [facility] [id number] [place] [address] 13171- 0020 Nov, Cellulitis of toe of right foot L03.031 ; Polyneuropathy in diseases classified elsewhere G63 and HTN (hypertension) I10 [facility] [id number] [place] [address] 15982- 9519 Nov, [facility] [id number] [place] [address] 00698- 2363 Nov, [facility] [address] 15948- 5646 Nov, Back pain M54.9 [facility] [id number] [place] [address] 29604- 4891 Nov, Shortness of breath R06.02 [facility] [id number] [place] [address] 43847- 5726 Nov, [facility] [address] [address]- 8439 Oct, [facility] [address] [address]- 8329 Oct, [facility] [id number] [address]- 3234 Oct, [facility] [id number] [place] [address] 14984- 6868 Oct, [facility] [id number] [place] [address] 57255- 5609 Oct, [facility] [id number] [place] [address] 36966- 9728 Oct, Back pain M54.9 [facility] [id number] [place] [address] 65694- 5926 Oct, Back pain M54.9 [facility] [address] [address]- 7594 Oct, [facility] [address] [address]- 8199 September, [facility] [address] [address]- 9227 September, [facility] [address] [address]- 5532 September, [facility] [address] [address]- 2010 September, 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 complication E11.49 and Hypotension, unspecified hypotension type I95.9 [facility] [address] [address]- 6769 September, [facility] [address] [address]- 9572 September, [facility] [id number] [place] [address] 00227- 8475 September, Back pain M54.9 [facility] [id number] [place] [address] 25599- 4873 Aug, [facility] [id number] [place] [address] 68732- 4148 Aug, Acute cystitis with hematuria N30.01 ; Ulcer of right foot, unspecified ulcer stage L97.519 ; HTN (hypertension) I10 ; COPD (chronic obstructive pulmonary disease) J44.9 and DM neuro manif type II E11.49 [facility] [address] 51170- 2144 Aug, Back pain M54.9 [facility] [id number] [place] [address] 27448- 4221 Jul, [facility] [address] 01568- 7590 Jul, Back pain M54.9 [facility] [id number] [place] [address] 32654- 0697 Jul, [facility] [id number] [place] [address] 29025- 2116 Jul, DM neuro manif type II E11.49 and Ulcer of right foot, unspecified ulcer stage L97.519 [facility] [id number] [place] [address] 17213- 2635 Jun, [facility] [id number] [place] [address] 82224- 8541 Jun, [facility] [id number] [place] [address] 76389- 0582 May, 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 complication E11.49 ; GERD (gastroesophageal reflux disease) K21.9 and PAD ( peripheral artery disease) I73.9 [facility] [id number] [place] [address] 97185- 2670 May, Decubital ulcer L89.90 ; Diabetes E11.9 and GERD ( gastroesophageal reflux disease) K21.9 [facility] [address] 66901- 2112 May, [facility] [id number] [place] [address] 31381- 4309 Apr, [facility] [address] 33880- 1072 Mar, [facility] [id number] [place] [address] 98513- 9594 Mar, [facility] [address] 87046- 1296 Feb, [facility] [id number] [place] [address] 02648- 4292 Feb, [facility] [address] 76622- 5780 Jan, [facility] [id number] [place] [address] 32147- 2500 Jan, HTN (hypertension) I10 [facility] [id number] [place] [address] 26240- 2313 Jan, [facility] [id number] [place] [address] 13970- 1209 Dec, Back pain M54.9 [facility] [id number] [place] [address] 35651- 9451 Dec, Back pain M54.9 [facility] [id number] [place] [address] 22839 -0965 Dec, Encounter for immunization Z23 and Puncture wound of right foot, initial encounter S91.331A [facility] [id number] [place] [address] 86442- 8157 Dec, [facility] [address] [place] [address]- 6971 Nov, [facility] [id number] [place] [address] 62460- 7445 Nov, COPD (chronic obstructive pulmonary disease) J44.9 [facility] [id number] [place] [address] 60686- 5963 Nov, [facility] [id number] [place] [address] 85682- 8192 Oct, [facility] [id number] [place] [address] 39683- 7471 Oct, [facility] [id number] [place] [address] 12387- 9741 September, Onychomycosis B35.1 and DM neuro manif type II E11.49 [facility] [id number] [place] [address] 54921- 5011 September, [facility] [id number] [place] [address] 60725- 3904 Aug, [facility] [id number] [place] [address] 51670- 5988 Jul, Sinusitis, unspecified chronicity, unspecified location J32.9 and Cough R05 [facility] [id number] [place] [address] 31238- 6640 Jul, Back pain M54.9 [facility] [id number] [place] [address] 12860- 7351 Jun, Back pain M54.9 [facility] [id number] [place] [address] 28617- 2284 Jun, COPD (chronic obstructive pulmonary disease) J44.9 [facility] [id number] [place] [address] 72453- 1599 May, [facility] [id number] [place] [address] 29705- 6340 May, [facility] [address] [address]- 8163 May, Back pain M54.9 [facility] [id number] [place] [address] 92022- 6400 16 May, 2016 [facility] [id number] [place] [address] 09869- 6802 May, [facility] [id number] [place] [address] 61971- 8256 May, Diabetes E11.9 [facility] [id number] [place] [address] 16202- 7112 11 May, 2016 Diabetes E11.9 ; GERD [...] Need for hepatitis C screening test Z11.59 [facility] [id number] [place] [address] 88019- 9837 May, HTN (hypertension) I10 [facility] [id number] [place] [address] 78854- 4428 Apr, [facility] [id number] [place] [address] 75543- 0427 Apr, [facility] [address] [place] [address] 27760- 8309 Apr, [facility] [id number] [place] [address] 39445- 6726 Apr, [facility] [id number] [place] [address] 22689- 2093 Apr, [facility] [id number] [place] [address] 13707- 1747 Mar, [facility] [address], [place] [address]- 0260 Mar, [facility] [id number] [place] [address] 07269- 1921 Mar, [facility] [id number] [place] [address] 16173- 4169 Mar, [facility] [id number] [place] [address] 31658- 6903 Mar, Dental examination Z01.20 [facility] [id number] [place] [address] 47690- 4857 Feb, [facility] [id number] [place] [address] 58048- 1654 Feb, [facility] [id number] [place] [address] 98537- 0301 Feb, Back pain M54.9 [facility] [id number] [place] [address] 38633- 0678 Jan, [facility] [id number] [place] [address] 15274- 6137 Jan, [facility] [id number] [place] [address] 07411- 2084 Dec, Diabetes E11.9 ; GERD (gastroesophageal reflux disease) K21.9 ; ED (erectile dysfunction) N52.9 ; HTN (hypertension) I10 ; Insomnia G47.00 ; COPD (chronic obstructive pulmonary disease) J44.9 ; Neuropathy G62.9 and Bipolar depression F31.30 [facility] [id number] [place] [address] 06692- 8197 Dec, 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 complication E11.49 and Onychomycosis B35.1 [facility] [id number] [place] [address] 08307- 6397 Dec, [facility] [id number] [place] [address]- 9029 Dec, [facility] [address] [facility] [id number] [place] [address]- 2439 Dec, [facility] [address] [facility] [id number] [place] [address]- 0348 Dec, [facility] [address] [facility] [id number] [place] [address]- 8208 Nov, [facility] [address] [facility] [id number] [place] [address]- 1031 Nov, [facility] [address] [facility] [id number] [place] [address], [place] [address]- 0426 Oct, [facility] [address] [facility] [id number] [place] [address]- 0601 Oct, [facility] [address] [place] [address]- 2482 Oct, Back pain M54.9 [facility] [address] [facility] [id number] [address]- 6457 Oct, [facility] [address], [place] [address]- 0827 Oct, [facility] [id number], [place] [address]- 4881 Oct, [facility] [address], [place] [address]- 4705 Oct, HTN (hypertension) I10 [facility] [address] [facility] [id number] [address]- 7377 Oct, Back pain M54.9 [facility] [id number], [place] [address]- 4581 Oct, Chronic pain syndrome G89.4 [facility] [address] [facility] [id number], [place] [address]- 8782 September, Back pain M54.9 [facility] [id number] [address]- 9641 September, HTN (hypertension) I10 [facility] [id number] [place] [address] 19781- 5548 29 Aug, 2015 Porokeratosis Q82.8 ; Onychomycosis B35.1 and 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 complication E11.49 [facility] [id number] [place] [address] 83758- 2572 Aug, GERD (gastroesophageal reflux disease) K21.9 ; Diabetes E11.9 ; HTN (hypertension) I10 ; Insomnia G47.00 ; Restless legs syndrome G25.81 ; COPD (chronic obstructive pulmonary disease) J44.9 ; Back pain M54.9 and Bipolar 1 disorder F31.9 [facility] [id number] [place] [address] 53499- 3747 Aug, [facility] [id number] [place] [address] 71813- 0977 Aug, [facility] [id number] [place] [address] 42781- 7942 Aug, [facility] [id number] [place] [address] 47028- 8583 Aug, [facility] [address], [place] [address]- 4754 31 Jul, 2015 [facility] [id number] [place] [address] 68389- 9372 31 Jul, 2015 [facility] [id number] [address]- 5272 30 Jul, 2015 [facility] [id number] [place] [address] 442356- 0055 16 Jul, 2015 [facility] [id number] 2483 15 Jul, 2015 [facility] [address] [place] [address]- 9018 Jul, [facility] [id number] [place] [address] 02541- 9175 Jun, Decubital ulcer L89.90 ; Diabetes E11.9 ; Back pain M54.9 ; HTN (hypertension) I10 and COPD (chronic obstructive pulmonary disease) J44.9 [facility] [id number] [place] [address] 16124- 6303 Jun, [facility] [id number] [place] [address] 48997- 4761 Jun, [facility] [id number] [place] [address] 19704- 5095 Jun, [facility] [id number] [place] [address] 04443- 4199 Jun, [facility] [id number] [place] [address] 88367- 0325 Jun, Diabetes E11.9 ; Insomnia G47.00 ; Decubital ulcer L89.90 ; GERD (gastroesophageal reflux disease) K21.9 ; Back pain M54.9 ; Superficial fungus infection of skin B36.9 and HTN (hypertension) I10 [address] [id number] [id number] Jun, Dental examination Z01.20 [facility] [address] [address]- 6268 May, [facility] [id number] [place] [address] 94677- 7181 May, [facility] [id number] [place] [address] 42151- 0988 May, [facility] [address] [place] [address] 90372- 6118 May, Diabetes E11.9 ; HTN (hypertension) I10 and Decubital ulcer L89.90 [facility] [id number] [address]- 2771 May, HTN (hypertension) I10 ; Decubital ulcer L89.90 and Diabetes E11.9 [facility] [id number] [place] [address] 79007- 0309 Apr, Diabetes E11.9 ; GERD (gastroesophageal reflux disease) K21.9 ; Back pain M54.9 ; HTN (hypertension) I10 ; Restless legs syndrome G25.81 and Decubital ulcer L89.90 [facility] [id number] [place] [address] 11079- 6711 Apr, [facility] [id number] [place] [address] 27179- 0173 Apr, Diabetes E11.9 ; HTN (hypertension) I10 ; Restless legs syndrome G25.81 ; GERD (gastroesophageal reflux disease) K21.9 and COPD ( chronic obstructive pulmonary disease) J44.9 [facility] [id number] [place] [address] 84886- 8507 Mar, [facility] [id number] [place] [address] 04222- 1114 Mar, [facility] [id number] [place] [address] 24511- 2986 Mar, Diabetes E11.9 ; Abscess L02.91 and Restless legs syndrome G25.81 [facility] [id number] [place] [address] 55121- 1871 Mar, [facility] [id number] [place] [address] 08959- 4432 Feb, GERD (gastroesophageal reflux disease) K21.9 ; Back pain M54.9 ; ED (erectile dysfunction) N52.9 ; Diabetes E11.9 ; HTN (hypertension) I10 and Insomnia G47.00 [facility] [id number] [place] [address] 60994- 4339 Feb, [facility] [id number] [place] [address] [id number]- 2042 Feb, [facility] [id number] [place] [address] [id number]- 9719 Jan, [facility] [id number] [place] [address] 46242- 1033 Jan, Diabetes 250.00 ; Nondependent cannabis abuse, continuous 305.21 ; Cough 786.2 ; Schizoaffective disorder, unspecified 295.70 ; Sciatica 724.3 ; Other, mixed, or unspecified nondependent drug abuse, unspecified 305.90 ; Chronic pain 338.29 ; GERD (gastroesophageal reflux disease) 530.81 and HTN (hypertension) 401.9 [facility] [id number] [place] [address] 20027- 3077 Jan, [facility] [id number] [place] [address] 10013- 4638 Jan, [facility] [id number] [place] [address] 52701- 4765 Jan, Chronic pain associated with significant psychosocial dysfunction 338.4 ; Diabetes mellitus without mention of complication, type I [ juvenile type], uncontrolled 250.03 ; Benign essential hypertension 401.1 ; Schizoaffective disorder, unspecified 295.70 ; Wheezing 786.07 ; Ear ache 388.70 ; Cough 786.2 ; Sciatica 724.3 and Foot pain, bilateral 729.5 [place] [id number] [place] [address] 54240- 0727 Dec, [place] [id number] [place] [address] 35099- 4269 Dec, [place] [address] [address]- [address] Dec, [facility] [id number] [place] [address] 37335- 1342 Dec, [place] [id number] [place] [address] 29337- 4823 Dec, [facility] [id number] [address] Nov, Elevated liver enzymes 790.5 [facility] [id number] [address] Nov, [facility] [id number] [address] 4825 Nov, [facility] [id number] [place] [address] 05606- 6859 Nov, [facility] [id number] [place] [address] 31822- 2943 Nov, Benign essential hypertension 401.1 ; Diabetes mellitus without mention of complication, type I [juvenile type], uncontrolled 250.03 and Nondependent cannabis abuse, continuous 305.21 [facility] [id number] [place] [address] 08354- 8535 Oct, Cellulitis 682.9 and Benign essential hypertension 401.1 [facility] [id number] [address] Oct, [facility] [id number] [place] [address] 21841- 5726 September, [facility] [id number] [address] 28[address] September, [facility] [id number] [address] 8351 Aug, [facility] [id number], [place] [address] 1993 Aug, [facility] [id number] [place] [address] 50363- 4237 Aug, [facility] [id number] [address] 8000 Aug, [facility] [id number] [place] [address] 10377- 0823 Jul, [facility] [place] [facility] [address] [id number] [place] [address]- 5302 Jul, [facility] [place] [facility] [address] [id number] [place] [address]- 1674 Jul, [facility] [place] [facility] [address] [facility] [id number] [place] [address]- 2135 Jul, [facility] [place] [facility] [address] [id number] [place] [address]- 3343 Jul, [facility] [place] [facility] [address] [id number] [place] [address]- 5309 Jul, [facility] [place] [facility] [address] [id number] [place] [address]- 3169 Jun, [facility] [place] [facility] [address] [id number] [place] [address]- 7888 Jun, [facility] [place] [facility] [address] [id number] [place] [address]- 0920 Jun, [facility] [place] [facility] [address] [id number] [place] [address]- 2427 Jun, [facility] [place] [facility] [address] [facility] [id number] [place] [address]- 1321 Jun, [facility] [place] [facility] [address] [id number] [address] 1653 May, [facility] [place] [facility] [address] [id number] [place] [address]- 7900 May, [facility] [place] [facility] [address] [id number] [place] [address]- 3068 May, [facility] [place] [facility] [address] [id number] [place] [address]- 7666 May, [facility] [place] [facility] [address] [facility] [id number] [place] [address]- 6962 May, [facility] [place] [facility] [address] [id number] [place] [address]- 2333 May, [facility] [place] [facility] [address] [id number] [place] [address]- 9640 May, [facility] [place] [facility] [address] [id number] [place] [address]- 2189 May, [facility] [place] [facility] [address] [id number] [place] [address]- 2279 Apr, [facility] [place] [facility] [address] [id number] [place] [address]- 9888 Apr, [facility] [place] [facility] [address] [id number] [place] [address]- 1338 Apr, [facility] [place] [facility] [address] [id number] [place] [address]190 Apr, [facility] [place] [facility] [address] [id number] [place] [address]- 5320 Mar, [facility] [place] [facility] [address] [id number] [place] [address]- 6887 Mar, [facility] [place] [facility] [address] [id number] [place] [address]- 2351 Mar, [facility] [place] [facility] [address] [id number] [place] [address]- 3605 Mar, [facility] [place] [facility] [address] [id number] [place] [address]- 4427 Feb, [facility] [place] [facility] [address] [id number] [place] [address]- 4424 Feb, [facility] [place] [facility] [address] [id number] [place] [address]- 1178 Feb, [facility] [place] [facility] [address] [id number] [place] [address]- 9866 Feb, [facility] [place] [facility] [address] [id number] [place] [address]- 2044 Feb, [facility] [place] [facility] [address] [id number] [place] [address]- 4859 Feb, [facility] [place] [facility] [address] [id number] [place] [address]- 2403 Jan, [facility] [place] [facility] [address] [id number] [place] [address]- 5427 Jan, [facility] [place] [facility] [address] [id number] [place] [address]- 9732 Jan, [facility] [place] [facility] [address] [id number] [place] [address]- 3978 Jan, [facility] [place] [facility] [address] [id number] [place] [address]- 0189 Dec, [facility] [place] [facility] [address] [id number] [place] [address]- 4668 Dec, [facility] [place] [facility] [address] [id number] [place] [address]- 9420 Dec, [facility] [place] [facility] [address] [id number] [place] [address]- 3413 Dec, [facility] [place] [facility] [address] [id number] [place] [address]- 3131 Dec, [facility] [place] [facility] [address] [id number], [place] [address]- 1312 Dec, [facility] [place] [facility] [address] [id number], [place] [address]- 6999 Oct, [facility] [place] [facility] [address] [id number] [place] [address]- 9298 Oct, [facility] [place] [facility] [address] [id number] [place] [address]- 5221 September, [facility] [place] [facility] [address] [id number] [place] [address]- 0709 September, [facility] [place] [facility] [address] [id number] [place] [address]- 8366 September, [facility] [place] [facility] [address] [id number] [place] [address]- 1960 September, [facility] [place] [facility] [address] [id number] [place] [address]- 3087 September, [facility] [place] [facility] [address] [id number] [place] [address]- 5839 September, [facility] [place] [facility] [address] [id number] [place] [address]- 4599 Aug, [facility] [place] [facility] [address] [id number] [place] [address]- 9022 Aug, [facility] [place] [facility] [address] [id number] [place] [address]- 9262 Aug, [facility] [place] [facility] [address] [id number] [place] [address]- 6692 Aug, [facility] [place] [facility] [address] [id number] [place] [address]- 2138 Jul, [facility] [place] [facility] [address] [id number] [place] [address]- 8937 Jul, [facility] [place] [facility] [address] [id number] [place] [address]- 1935 Jun, [facility] [place] [facility] [address] [id number] [place] [address]- 1909 Jun, [facility] [place] [facility] [address] [id number] [place] [address]- 9140 May, [facility] [place] [facility] [address] [id number] [place] [address]- 7337 May, [facility] [place] [facility] [address] [id number] [place] [address]- 1268 Jan, [facility] [place] [facility] [address] [id number] [place] [address]79 Dec, [facility] [place] [facility] [address] [id number] [place] [address]- 8779 Jun, [facility] [address] [id number] [place] [address]- 0383 May, [facility] [address] [id number] [place] [address]- 5778 Nov, [facility] [place] [facility] [address] [id number] [place] [address]- 5475 September, [facility] [address] [id number] [place] [address]- 4634 Aug, [facility] [address] [id number] [place] [address]- 2626 Aug, [facility] [address] [id number] [place] [address]- 5654 Aug, [facility] [address] [id number] [place] [address]- 4961 Aug, [facility] [address] [id number] [place] [address]- 1528 Nov, [facility] [address] [id number] [place] [address]- 5443 Oct, [facility] [address] [id number] [place] [address]- 0788 Jul, [facility] [address] [id number] [address]- 0113 Feb, [facility] [place] [facility] [address] [id number] [place] [address]- 8730 Feb, [facility] [place] [facility] [address] [id number] [place] [address]- 6176 Apr, [facility] [place] [facility] [address] [id number] [place] [address]- 2546 Apr, [facility] [place] [facility] [address] [id number], [place] [address]- 5466 Feb, [facility] [address] [facility] [id number] [place] [address]- 4056 Feb, [facility] [address] [facility] [id number], [place] [address]- 1946 Jul, IMMUNIZATIONS No Known Immunizations SOCIAL HISTORY Never Assessed REASON FOR VISIT [facility] [place] PLAN OF CARE VITAL SIGNS MEDICATIONS Medication Instructions Dosage Frequency Start Date End Date Duration Status benztropine 1 mg take 1 tablet (1 mg) by oral route 3 times per day Dec, Active tramadol 50 mg take 1 tablet by Oral route every 6 hours as needed PRN pain. Needs to last 20 days. Jul, Active Zithromax Z-Ricky 250 mg 2 tablet by Oral route 1 time per day for 1 days then take 1 tab daily on days 2-5 Jul, Active Lyrica 150 mg take 1 capsule (150 mg) by oral route 2 times per day Diagnosis codes (729.1) (356.9) May, Active Elavil 25 mg 1-2 tablet by Oral route 1 time per day Dec, Active Lisinopril-Hydrochlorothiazide 10-12.5 mg take 0.5 tablet by Oral route 1 time per day Apr, Active Depakote 500 mg take 1 tablet (500 mg) by oral route 3 times per day Dec, Active Vistaril 50 mg take 1 capsule (50 mg) by oral route 4 times per day Dec, Active Pepcid 20 mg 1 tablet by Oral route 2 times per day May, Active Invega Sustenna 234 mg/1.5 mL every 3 weeks Apr, Active Cymbalta 60 mg take 1 capsule (60 mg) by oral route once daily Dec, Active metformin 500 mg take 1 tablet (500 mg) by oral route 2 times per day with morning and evening meals with meals Jun, Active RESULTS No Results PROCEDURES No Known [...]
--- OUTSIDE RECORDS SUMMARY | 2018-09-15 22:21 | XMS REPORT ---
Author Author Migration, Doctor Organization [facility] Address Unknown Phone Unavailable Care Team Providers [employer] Name Role Phone Migration, Doctor Unavailable Unavailable PROBLEMS Type Condition ICD9-CM Code JUM12-CM Code Onset Dates Condition Status SNOMED Code Problem Schizoaffective disorder, depressive type F25.1 Active 43793057 Problem Personality disorder F60.9 Active 99318342 Problem Chronic hepatitis C without hepatic coma B18.2 Active 149991695 Problem GERD (gastroesophageal reflux disease) K21.9 Active 435323250 Problem Restless legs syndrome G25.81 Active 422277003 Problem COPD (chronic obstructive pulmonary disease) J44.9 Active 05094693 Problem PAD (peripheral artery disease) I73.9 Active 642292373 Problem HTN (hypertension) I10 Active 97747354 Problem Constipation, unspecified constipation type K59.00 Active 92213738 Problem ED (erectile dysfunction) N52.9 Active 952198878 Problem 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 253604590 Problem Sinusitis, unspecified chronicity, unspecified location J32.9 Active 43905515 Problem DM neuro manif type II E11.49 Active 19186283 Problem Ulcer of right foot, unspecified ulcer stage L97.519 Active 77517973 ALLERGIES No Information ENCOUNTERS Encounter Location Date Diagnosis [facility] [id number] [place] [address] 67984- 4523 September, [facility] [id number] [place] [address] 46782- 7081 Jul, [facility] [id number] [place] [address] 44991- 7657 Jul, [facility] [id number] [place] [address] 43495- 9948 Jul, [facility] [id number] [place] [address] 96606- 7839 Jul, Back pain M54.9 [facility] [id number] [place] [address] 12290- 5616 Jul, Polyneuropathy in diseases classified elsewhere G63 [facility] [id number] [place] [address] 51611 -8256 Jul, Constipation, unspecified constipation type K59.00 and Burn T30.0 [facility] [address] 35272- 5474 Jul, [facility] [id number] [place] [address] 93846- 2485 Jun, 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 complication E11.49 [facility] [id number] [place] [address] 17103- 3342 Jun, Back pain M54.9 [facility] [id number] [place] [address] 95865- 2816 Jun, 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 complication E11.49 [facility] [id number] [place] [address] 26619- 5649 Jun, [facility] [id number] [place] [address] 04827- 9342 Jun, [facility] [id number] [place] [address] 45932- 7890 Jun, [facility] [id number] [place] [address] 15752- 9255 May, [facility] [id number] [place] [address] 13556- 0665 May, Back pain M54.9 [facility] [id number] [place] [address] 20580- 4886 May, [facility] [id number] [place] [address] 66554- 0916 May, 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 complication E11.49 ; Chronic hepatitis C without hepatic coma B18.2 and HTN ( hypertension) I10 [facility] [id number] [place] [address] 50642- 5135 Apr, Back pain M54.9 [facility] [id number] [place] [address] 61078- 0307 Apr, [facility] [id number] [place] [address] 58607- 6433 Apr, Polyneuropathy in diseases classified elsewhere G63 [facility] [id number] [place] [address] 32669- 7921 Mar, Back pain M54.9 [facility] [id number] [place] [address] 32875- 2218 Mar, [facility] [id number] [place] [address] 07071- 8302 Mar, Back pain M54.9 [facility] [id number] [place] [address] 02910- 3891 Mar, [facility] [id number] [place] [address] 86637- 3432 Mar, [facility] [id number] [place] [address] 59468- 5810 Mar, Polyneuropathy in diseases classified elsewhere G63 [facility] [id number] [place] [address] 92803- 1465 Feb, Back pain M54.9 [facility] [id number] [place] [address] 93030- 9639 Jan, Back pain M54.9 [facility] [id number] [place] [address] 97640- 3435 Jan, [facility] [id number] [place] [address] 83406- 0202 Jan, [facility] [id number] [place] [address] 21697- 2638 Dec, Back pain M54.9 [facility] [id number] [place] [address] 10045- 2693 Dec, [facility] [id number] [place] [address] 18284- 2042 Dec, Upper respiratory tract infection, unspecified type J06.9 [facility] [id number] [place] [address] 25228- 2002 Dec, [facility] [id number] [place] [address] 23206 -3314 Dec, Acute suppurative otitis media of right ear without spontaneous rupture of tympanic membrane, recurrence not specified H66.001 and Acute nasopharyngitis J00 [facility] [id number] [place] [address] 70808- 4680 Dec, Back pain M54.9 [facility] [id number] [place] [address] 23968- 1561 Dec, Foot infection L08.9 and 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 complication E11.49 [facility] [id number] [place] [address] 46121- 3569 Nov, Cellulitis of toe of right foot L03.031 ; Polyneuropathy in diseases classified elsewhere G63 and HTN (hypertension) I10 [facility] [id number] [place] [address] 20367- 1628 Nov, [facility] [id number] [place] [address] 05857- 5956 Nov, [facility] [address] 32365- 7156 Nov, Back pain M54.9 [facility] [id number] [place] [address] 32942- 2403 Nov, Shortness of breath R06.02 [facility] [id number] [place] [address] 75867- 6125 Nov, [facility] [address] [address]- 3248 Oct, [facility] [address] [address]- 8958 Oct, [facility] [id number] [address]- 1675 Oct, [facility] [id number] [place] [address] 94903- 5908 Oct, [facility] [id number] [place] [address] 91144- 8703 Oct, [facility] [id number] [place] [address] 90155- 3913 Oct, Back pain M54.9 [facility] [id number] [place] [address] 34978- 1388 Oct, Back pain M54.9 [facility] [address] [address]- 6720 Oct, [facility] [address] [address]- 5242 September, [facility] [address] [address]- 7401 September, [facility] [address] [address]- 6251 September, [facility] [address] [address]- 2310 September, 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 complication E11.49 and Hypotension, unspecified hypotension type I95.9 [facility] [address] [address]- 5056 September, [facility] [address] [address]- 7043 September, [facility] [id number] [place] [address] 15041- 3994 September, Back pain M54.9 [facility] [id number] [place] [address] 14066- 8973 Aug, [facility] [id number] [place] [address] 77297- 8111 Aug, Acute cystitis with hematuria N30.01 ; Ulcer of right foot, unspecified ulcer stage L97.519 ; HTN (hypertension) I10 ; COPD (chronic obstructive pulmonary disease) J44.9 and DM neuro manif type II E11.49 [facility] [address] 44728- 4102 Aug, Back pain M54.9 [facility] [id number] [place] [address] 27940- 9067 Jul, [facility] [address] 33178- 0881 Jul, Back pain M54.9 [facility] [id number] [place] [address] 87604- 2335 Jul, [facility] [id number] [place] [address] 71644- 3382 Jul, DM neuro manif type II E11.49 and Ulcer of right foot, unspecified ulcer stage L97.519 [facility] [id number] [place] [address] 23876- 1806 Jun, [facility] [id number] [place] [address] 51552- 6868 Jun, [facility] [id number] [place] [address] 73406- 7368 May, 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 complication E11.49 ; GERD (gastroesophageal reflux disease) K21.9 and PAD ( peripheral artery disease) I73.9 [facility] [id number] [place] [address] 91518- 4054 May, Decubital ulcer L89.90 ; Diabetes E11.9 and GERD ( gastroesophageal reflux disease) K21.9 [facility] [address] 02251- 5648 May, [facility] [id number] [place] [address] 53281- 0657 Apr, [facility] [address] 66647- 3627 Mar, [facility] [id number] [place] [address] 27526- 0533 Mar, [facility] [address] 77063- 6412 Feb, [facility] [id number] [place] [address] 87035- 5660 Feb, [facility] [address] 88720- 5492 Jan, [facility] [id number] [place] [address] 22172- 2486 Jan, HTN (hypertension) I10 [facility] [id number] [place] [address] 61349- 5352 Jan, [facility] [id number] [place] [address] 03734- 2055 Dec, Back pain M54.9 [facility] [id number] [place] [address] 78267- 3549 Dec, Back pain M54.9 [facility] [id number] [place] [address] 15476 -6287 Dec, Encounter for immunization Z23 and Puncture wound of right foot, initial encounter S91.331A [facility] [id number] [place] [address] 29661- 0557 Dec, [facility] [address] [place] [address]- 3404 Nov, [facility] [id number] [place] [address] 77455- 8373 Nov, COPD (chronic obstructive pulmonary disease) J44.9 [facility] [id number] [place] [address] 60354- 4976 Nov, [facility] [id number] [place] [address] 23412- 5767 Oct, [facility] [id number] [place] [address] 73849- 0232 Oct, [facility] [id number] [place] [address] 91244- 3269 September, Onychomycosis B35.1 and DM neuro manif type II E11.49 [facility] [id number] [place] [address] 73896- 0226 September, [facility] [id number] [place] [address] 54858- 2848 Aug, [facility] [id number] [place] [address] 73365- 1379 Jul, Sinusitis, unspecified chronicity, unspecified location J32.9 and Cough R05 [facility] [id number] [place] [address] 35732- 4980 Jul, Back pain M54.9 [facility] [id number] [place] [address] 47880- 9295 Jun, Back pain M54.9 [facility] [id number] [place] [address] 21869- 2478 Jun, COPD (chronic obstructive pulmonary disease) J44.9 [facility] [address] [place] [address] 69641- 7668 May, [facility] [id number] [place] [address] 72108- 2785 May, [facility] [address] [address]- 1889 May, Back pain M54.9 [facility] [id number] [place] [address] 09205- 6310 16 May, 2016 [facility] [id number] [place] [address] 78534- 8821 May, [facility] [id number] [place] [address] 29042- 0200 May, Diabetes E11.9 [facility] [id number] [place] [address] 73393- 7608 11 May, 2016 Diabetes E11.9 ; GERD [...] Need for hepatitis C screening test Z11.59 [facility] [id number] [place] [address] 13984- 0521 May, HTN (hypertension) I10 [facility] [id number] [place] [address] 20354- 9515 Apr, [facility] [id number] [place] [address] 22509- 0659 Apr, [facility] [address] [place] [address] 54827- 2750 Apr, [facility] [id number] [place] [address] 84594- 9686 Apr, [facility] [id number] [place] [address] 73214- 2409 Apr, [facility] [id number] [place] [address] 77045- 7297 Mar, [facility] [address] [address]- 5858 Mar, [facility] [id number] [place] [address] 92394- 5677 Mar, [facility] [id number] [place] [address] 43198- 1205 Mar, [facility] [id number] [place] [address] 27632- 8796 Mar, Dental examination Z01.20 [facility] [id number] [place] [address] 57253- 6041 Feb, [facility] [id number] [place] [address] 12966- 6313 Feb, [facility] [id number] [place] [address] 09757- 9233 Feb, Back pain M54.9 [facility] [id number] [place] [address] 13211- 0066 Jan, [facility] [id number] [place] [address] 87191- 0640 Jan, [facility] [id number] [place] [address] 11456- 6291 Dec, Diabetes E11.9 ; GERD (gastroesophageal reflux disease) K21.9 ; ED (erectile dysfunction) N52.9 ; HTN (hypertension) I10 ; Insomnia G47.00 ; COPD (chronic obstructive pulmonary disease) J44.9 ; Neuropathy G62.9 and Bipolar depression F31.30 [facility] [id number] [place] [address] 94740- 4782 Dec, 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 complication E11.49 and Onychomycosis B35.1 [facility] [id number] [place] [address] 97521- 6894 Dec, [facility] [id number] [place] [address]- 3905 Dec, [facility] [address] [facility] [id number] [place] [address]- 4328 Dec, [facility] [address] [facility] [id number] [place] [address]- 7312 Dec, [facility] [address] [facility] [id number] [place] [address]- 4808 Nov, [facility] [address] [facility] [id number] [place] [address]- 2460 Nov, [facility] [address] [facility] [id number] [place] [address], [place] [address]- 8192 Oct, [facility] [address] [facility] [id number] [place] [address]- 8697 Oct, [facility] [address] [place] [address]- 1660 Oct, Back pain M54.9 [facility] [address] [facility] [id number], [place] [address]- 1217 Oct, [facility] [address] [address]- 3375 Oct, [facility] [id number] [address]- 4354 Oct, [facility] [address], [place] [address]- 3731 Oct, HTN (hypertension) I10 [facility] [address] [facility] [id number], [place] [address]- 5039 Oct, Back pain M54.9 [facility] [id number], [place] [address]- 1672 Oct, Chronic pain syndrome G89.4 [facility] [address] [facility] [id number], [place] [address]- 7229 September, Back pain M54.9 [facility] [id number] [address]- 7657 September, HTN (hypertension) I10 [facility] [id number] [place] [address] 55286- 8833 29 Aug, 2015 Porokeratosis Q82.8 ; Onychomycosis B35.1 and 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 complication E11.49 [facility] [id number] [place] [address] 06020- 3511 Aug, GERD (gastroesophageal reflux disease) K21.9 ; Diabetes E11.9 ; HTN (hypertension) I10 ; Insomnia G47.00 ; Restless legs syndrome G25.81 ; COPD (chronic obstructive pulmonary disease) J44.9 ; Back pain M54.9 and Bipolar 1 disorder F31.9 [facility] [id number] [place] [address] 89429- 6101 Aug, [facility] [id number] [place] [address] 67697- 5586 Aug, [facility] [id number] [place] [address] 52280- 4397 Aug, [facility] [id number] [place] [address] 90287- 9095 Aug, [facility] [address], [place] [address]- 7031 31 Jul, 2015 [facility] [id number] [place] [address] 92916- 5777 31 Jul, 2015 [facility] [id number] [address]- 5970 30 Jul, 2015 [facility] [id number] [place] [address] 115988- 8622 16 Jul, 2015 [facility] [id number] 4247 15 Jul, 2015 [facility] [address] [place] [address]- 1768 Jul, [facility] [address] [place] [address] 87965- 1673 Jun, Decubital ulcer L89.90 ; Diabetes E11.9 ; Back pain M54.9 ; HTN (hypertension) I10 and COPD (chronic obstructive pulmonary disease) J44.9 [facility] [id number] [place] [address] 43069- 1157 Jun, [facility] [id number] [place] [address] 57550- 8696 Jun, [facility] [id number] [place] [address] 14418- 0462 Jun, [facility] [id number] [place] [address] 85657- 3767 Jun, [facility] [id number] [place] [address] 76023- 8459 Jun, Diabetes E11.9 ; Insomnia G47.00 ; Decubital ulcer L89.90 ; GERD (gastroesophageal reflux disease) K21.9 ; Back pain M54.9 ; Superficial fungus infection of skin B36.9 and HTN (hypertension) I10 [address] [id number] [id number] Jun, Dental examination Z01.20 [facility] [address] [address]- 8117 May, [facility] [address] [place] [address] 97155- 5762 May, [facility] [id number] [place] [address] 07939- 5293 May, [facility] [address] [place] [address] 04623- 9822 May, Diabetes E11.9 ; HTN (hypertension) I10 and Decubital ulcer L89.90 [facility] [id number] [address]- 9580 May, HTN (hypertension) I10 ; Decubital ulcer L89.90 and Diabetes E11.9 [facility] [id number] [place] [address] 28697- 5411 Apr, Diabetes E11.9 ; GERD (gastroesophageal reflux disease) K21.9 ; Back pain M54.9 ; HTN (hypertension) I10 ; Restless legs syndrome G25.81 and Decubital ulcer L89.90 [place] [id number] [place] [address] 32213- 3579 Apr, [place] [id number] [place] [address] 42824- 6368 Apr, Diabetes E11.9 ; HTN (hypertension) I10 ; Restless legs syndrome G25.81 ; GERD (gastroesophageal reflux disease) K21.9 and COPD ( chronic obstructive pulmonary disease) J44.9 [place] [id number] [place] [phone]- 0851 Mar, [place] [id number] [place] [address] 49786- [phone] Mar, [place] [id number] [place] [address] [phone]- 9493 Mar, Diabetes E11.9 ; Abscess L02.91 and Restless legs syndrome G25.81 [place] [id number] [place] [address] [phone]- 4022 Mar, [place] [id number] [place] [address] 91257- 6513 Feb, GERD (gastroesophageal reflux disease) K21.9 ; Back pain M54.9 ; ED (erectile dysfunction) N52.9 ; Diabetes E11.9 ; HTN (hypertension) I10 and Insomnia G47.00 [place] [id number] [place] [address] 80113- 1657 Feb, [place] [id number] [place] [address] [phone]- 1469 Feb, [facility] [id number] [place] [address] 44092- 3703 Jan, [facility] [id number] [place] [address] 69866- 1712 Jan, Diabetes 250.00 ; Nondependent cannabis abuse, continuous 305.21 ; Cough 786.2 ; Schizoaffective disorder, unspecified 295.70 ; Sciatica 724.3 ; Other, mixed, or unspecified nondependent drug abuse, unspecified 305.90 ; Chronic pain 338.29 ; GERD (gastroesophageal reflux disease) 530.81 and HTN (hypertension) 401.9 [place] [id number] [place] [address] 15063- [phone] Jan, [place] [id number] [place] [address] 44021- 9496 Jan, [place] [id number] [place] [address] [phone]- 4712 Jan, Chronic pain associated with significant psychosocial dysfunction 338.4 ; Diabetes mellitus without mention of complication, type I [ juvenile type], uncontrolled 250.03 ; Benign essential hypertension 401.1 ; Schizoaffective disorder, unspecified 295.70 ; Wheezing 786.07 ; Ear ache 388.70 ; Cough 786.2 ; Sciatica 724.3 and Foot pain, bilateral 729.5 [facility] [id number] [place] [address] 48479- 7870 Dec, [facility] [id number] [place] [address] 66368- 0767 Dec, [facility] [address] [address]- [address] Dec, [facility] [id number] [place] [address] 79928- 9995 Dec, [facility] [id number] [place] [address] 79666- 4909 Dec, [facility] [id number] [address] Nov, Elevated liver enzymes 790.5 [facility] [id number] [address] Nov, [facility] [id number] [address] 9295 Nov, [facility] [id number] [place] [address] 06991- 6337 Nov, [facility] [id number] [place] [address] 90530- 7530 Nov, Benign essential hypertension 401.1 ; Diabetes mellitus without mention of complication, type I [juvenile type], uncontrolled 250.03 and Nondependent cannabis abuse, continuous 305.21 [facility] [id number] [place] [address] 46584- 9800 Oct, Cellulitis 682.9 and Benign essential hypertension 401.1 [facility] [address] [address] 5[address] Oct, [facility] [id number] [place] [address] 15116- 9576 September, [facility] [address] [address] 7445 September, [facility] [address], [place] [address] 3935 Aug, [facility] [address] [address] 8657 Aug, [facility] [id number] [place] [address] 98372- 7851 Aug, [facility] [address] [address]- 4483 Aug, [facility] [id number] [place] [address] 67384- 8239 Jul, [facility] [place] [facility] [address] [id number] [place] [address]- 2428 Jul, [facility] [place] [facility] [address] [id number] [place] [address]- 5248 Jul, [facility] [place] [facility] [address] [facility] [id number] [place] [address]- 3533 Jul, [facility] [place] [facility] [address] [id number] [place] [address]- 6985 Jul, [facility] [place] [facility] [address] [id number] [place] [address]- 2525 Jul, [facility] [place] [facility] [address] [id number] [place] [address]- 2659 Jun, [facility] [place] [facility] [address] [id number] [place] [address]- 4320 Jun, [facility] [place] [facility] [address] [id number] [place] [address]- 8638 Jun, [facility] [place] [facility] [address] [id number] [place] [address]- 6667 Jun, [facility] [place] [facility] [address] [facility] [id number] [place] [address]- 2490 Jun, [facility] [place] [facility] [address] [id number], [place] [address] 6817 May, [facility] [place] [facility] [address] [id number] [place] [address]- 2246 May, [facility] [place] [facility] [address] [id number] [place] [address]- 2667 May, [facility] [place] [facility] [address] [id number] [place] [address]- 6822 May, [facility] [place] [facility] [address] [facility] [id number] [place] [address]- 9861 May, [facility] [place] [facility] [address] [id number] [place] [address]- 3238 May, [facility] [place] [facility] [address] [id number] [place] [address]- 2516 May, [facility] [place] [facility] [address] [id number] [place] [address]- 0936 May, [facility] [place] [facility] [address] [id number] [place] [address]- 5356 Apr, [facility] [place] [facility] [address] [id number] [place] [address]- 5385 Apr, [facility] [place] [facility] [address] [id number] [place] [address]- 7832 Apr, [facility] [place] [facility] [address] [id number] [place] [address] Apr, [facility] [place] [facility] [address] [id number] [place] [address]- 8428 Mar, [facility] [place] [facility] [address] [id number] [place] [address]- 1857 Mar, [facility] [place] [facility] [address] [id number] [place] [address]- 0121 Mar, [facility] [place] [facility] [address] [id number] [place] [address]- 6911 Mar, [facility] [place] [facility] [address] [id number] [place] [address]- 3398 Feb, [facility] [place] [facility] [address] [id number] [place] [address]- 9815 Feb, [facility] [place] [facility] [address] [id number] [place] [address]- 2250 Feb, [facility] [place] [facility] [address] [id number] [place] [address]- 1526 Feb, [facility] [place] [facility] [address] [id number] [place] [address]- 5976 Feb, [facility] [place] [facility] [address] [id number] [place] [address]- 0222 Feb, [facility] [place] [facility] [address] [id number] [place] [address]- 8440 Jan, [facility] [place] [facility] [address] [id number] [place] [address]- 8741 Jan, [facility] [place] [facility] [address] [id number] [place] [address]- 4354 Jan, [facility] [place] [facility] [address] [id number] [place] [address]- 0226 Jan, [facility] [place] [facility] [address] [id number] [place] [address]- 2335 Dec, [facility] [place] [facility] [address] [id number] [place] [address]- 7254 Dec, [facility] [place] [facility] [address] [id number] [place] [address]- 4248 Dec, [facility] [place] [facility] [address] [id number] [place] [address]- 0269 Dec, [facility] [place] [facility] [address] [id number] [place] [address]- 8311 Dec, [facility] [place] [facility] [address] [id number], [place] [address]- 2153 Dec, [facility] [place] [facility] [address] [id number], [place] [address]- 3139 Oct, [facility] [place] [facility] [address] [id number] [place] [address]- 9917 Oct, [facility] [place] [facility] [address] [id number] [place] [address]- 0229 September, [facility] [place] [facility] [address] [id number] [place] [address]- 5130 September, [facility] [place] [facility] [address] [id number] [place] [address]- 1282 September, [facility] [place] [facility] [address] [id number] [place] [address]- 1174 September, [facility] [place] [facility] [address] [id number] [place] [address]- 2659 September, [facility] [place] [facility] [address] [id number] [place] [address]- 3831 September, [facility] [place] [facility] [address] [id number] [place] [address]- 2412 Aug, [facility] [place] [facility] [address] [id number] [place] [address]- 0943 Aug, [facility] [place] [facility] [address] [id number] [place] [address]- 8110 Aug, [facility] [place] [facility] [address] [id number] [place] [address]- 6357 Aug, [facility] [place] [facility] [address] [id number] [place] [address]- 7995 Jul, [facility] [place] [facility] [address] [id number] [place] [address]- 1941 Jul, [facility] [place] [facility] [address] [id number] [place] [address]- 5806 Jun, [facility] [place] [facility] [address] [id number] [place] [address]- 6263 Jun, [facility] [place] [facility] [address] [id number] [place] [address]- 6830 May, [facility] [place] [facility] [address] [id number] [place] [address]- 8861 May, [facility] [place] [facility] [address] [id number] [place] [address]- 6559 Jan, [facility] [place] [facility] [address] [id number] [place] [address] Dec, [facility] [place] [facility] [address] [id number] [place] [address]- 4927 Jun, [facility] [address] [id number] [place] [address]- 9698 May, [facility] [address] [id number] [place] [address]- 7465 Nov, [facility] [place] [facility] [address] [id number] [place] [address]- 3453 September, [facility] [address] [id number] [place] [address]- 3469 Aug, [facility] [address] [id number] [place] [address]- 3522 Aug, [facility] [address] [id number] [place] [address]- 2922 Aug, [facility] [address] [id number] [place] [address]- 9242 Aug, [facility] [address] [id number] [place] [address]- 6126 Nov, [facility] [address] [id number] [place] [address]- 4122 Oct, [facility] [address] [id number] [place] [address]- 8476 Jul, [facility] [address] [id number], [place] [address]- 2357 Feb, [facility] [place] [facility] [address] [id number] [place] [address]- 0304 Feb, [facility] [place] [facility] [address] [id number] [place] [address]- 0206 Apr, [facility] [place] [facility] [address] [id number] [place] [address]- 2546 Apr, [facility] [place] [facility] [address] [id number], [place] [address]- 5406 Feb, [facility] [address] [facility] [id number] [place] [address]- 8767 Feb, [facility] [address] [facility] [id number] [place] [address]- 8886 Jul, IMMUNIZATIONS No Known Immunizations SOCIAL HISTORY Never Assessed REASON FOR VISIT EMR-[facility] PLAN OF CARE VITAL SIGNS MEDICATIONS Unknown [...]
--- OUTSIDE RECORDS SUMMARY | 2018-09-15 22:22 | XMS REPORT ---
Author Author YVES BLEVINS [facility] Address [address] [place] [address] Care Team Providers Care Associate Professor Of Chemistry Name Role Phone YVES BLEVINS Unavailable PROBLEMS Type Condition ICD9-CM Code QNG33-LV Code Onset Dates Condition Status SNOMED Code Problem HTN (hypertension) I10 Active 61038540 Problem Restless legs syndrome G25.81 Active 813421206 Problem GERD (gastroesophageal reflux disease) K21.9 Active 357552292 Problem Chronic hepatitis C without hepatic coma B18.2 Active 423480367 Problem ED (erectile dysfunction) N52.9 Active 521659001 Problem PAD (peripheral artery disease) I73.9 Active 713110921 Problem Ulcer of right foot, unspecified ulcer stage L97.519 Active 81368447 Problem 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 599465543 Problem COPD (chronic obstructive pulmonary disease) J44.9 Active 02600996 Problem DM neuro manif type II E11.49 Active 22177013 Problem Sinusitis, unspecified chronicity, unspecified location J32.9 Active 94241187 ALLERGIES No Information ENCOUNTERS Encounter Location Date Diagnosis [facility] [address], [place] [address] Mar, Back pain M54.9 [facility] [address], [place] [address] 9[address] Mar, [facility] [address], [place] [address] 0449 Mar, Back pain M54.9 [facility] [address], [place] [address] 0108 Mar, [facility] [address] [address] 6311 Mar, [facility] [id number] [place] [address] 67563- 0994 Mar, Polyneuropathy in diseases classified elsewhere G63 [facility] [id number] [place] [address] 98372- 4006 Feb, Back pain M54.9 [facility] [id number] [place] [address] 42680- 5249 Jan, Back pain M54.9 [facility] [id number] [place] [address] 35350- 4235 Jan, [facility] [id number] [place] [address] 74068- 8209 Jan, [facility] [id number] [place] [address] 54185- 2165 Dec, Back pain M54.9 [facility] [id number] [place] [address] 61638- 6901 Dec, [facility] [id number] [place] [address] 71803- 3954 Dec, Upper respiratory tract infection, unspecified type J06.9 [facility] [id number] [place] [address] 34548- 1972 Dec, [facility] [id number] [place] [address] 44146 -8609 Dec, Acute suppurative otitis media of right ear without spontaneous rupture of tympanic membrane, recurrence not specified H66.001 and Acute nasopharyngitis J00 [facility] [id number] [place] [address] 45805- 3055 Dec, Back pain M54.9 [facility] [id number] [place] [address] 04321- 6870 Dec, Foot infection L08.9 and 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 complication E11.49 [facility] [id number] [place] [address] 05455- 2349 Nov, Cellulitis of toe of right foot L03.031 ; Polyneuropathy in diseases classified elsewhere G63 and HTN (hypertension) I10 [facility] [id number] [place] [address], [place] [address]- 5778 Nov, [facility] [id number] [place] [address] 89507- 9673 Nov, [facility] [id number] [place] [address] 82697- 7790 Nov, Back pain M54.9 [facility] [id number] [place] [address] 13459- 3701 Nov, Shortness of breath R06.02 [facility] [id number] [place] [address] 25949- 3853 Nov, [facility] [id number] [place] [address] 60363- 6564 Oct, [facility] [id number] [place] [address] 24656- 3516 Oct, [facility] [id number] [place] [address] 74345- 4858 Oct, [facility] [id number] [place] [address] 07995- 7951 Oct, [facility] [id number] [place] [address] 14272- 2606 Oct, [facility] [id number] [place] [address] 40096- 8204 Oct, Back pain M54.9 [facility] [id number] [place] [address] 89588- 3428 Oct, Back pain M54.9 [facility] [id number] [place] [address] 27308- 7236 Oct, [facility] [id number] [place] [address] 11168- 9763 September, [facility] [address], [place] [address]- 3923 September, [facility] [id number] [place] [address] 69959- 2327 September, [facility] [id number] [place] [address] 64067- 3371 September, 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 complication E11.49 and Hypotension, unspecified hypotension type I95.9 [facility] [id number] [place] [address] 11593- 0545 September, [facility] [id number] [place] [address] 79863- 5385 September, [facility] [id number] [place] [address] 46332- 3499 September, Back pain M54.9 [facility] [id number] [place] [address] 30588- 6565 Aug, [facility] [id number] [place] [address] 82963- 5702 Aug, Acute cystitis with hematuria N30.01 ; Ulcer of right foot, unspecified ulcer stage L97.519 ; HTN (hypertension) I10 ; COPD (chronic obstructive pulmonary disease) J44.9 and DM neuro manif type II E11.49 [facility] [id number] [place] [address] 99491- 4331 Aug, Back pain M54.9 [facility] [id number] [place] [address] 87411- 6059 Jul, [facility] [id number] [place] [address] 89613- 1775 Jul, Back pain M54.9 [facility] [id number] [place] [address] 76599- 8810 Jul, [facility] [id number] [place] [address] 47312- 0138 Jul, DM neuro manif type II E11.49 and Ulcer of right foot, unspecified ulcer stage L97.519 [facility] [id number] [place] [address] 80835- 0200 Jun, [facility] [id number] [place] [address] 75530- 9955 Jun, [facility] [address] 42186- 6615 May, 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 complication E11.49 ; GERD (gastroesophageal reflux disease) K21.9 and PAD ( peripheral artery disease) I73.9 [facility] [address] 57344- 2927 May, Decubital ulcer L89.90 ; Diabetes E11.9 and GERD ( gastroesophageal reflux disease) K21.9 [facility] [id number] [place] [address] 61167- 8533 May, [facility] [id number] [place] [address] 09940- 2317 Apr, [facility] [id number] [place] [address] 55312- 0852 Mar, [facility] [id number] [place] [address] 47927- 1395 Mar, [facility] [id number] [place] [address] 13434- 5823 Feb, [facility] [id number] [place] [address] 35028- 9249 Feb, [facility] [address] 89995- 0243 Jan, [facility] [id number] [place] [address] 27044- 8530 Jan, HTN (hypertension) I10 [facility] [address] [place] [address]- 3615 Jan, [facility] [id number] [place] [address] 50493- 9106 Dec, Back pain M54.9 [facility] [id number] [place] [address] 55514- 7079 Dec, Back pain M54.9 [facility] [id number] [place] [address] 14938 -7925 Dec, Encounter for immunization Z23 and Puncture wound of right foot, initial encounter S91.331A [facility] [id number] [place] [address] 04141- 2643 Dec, [facility] [id number] [place] [address] 90934- 2252 Nov, [facility] [id number] [place] [address] 33040- 0421 Nov, COPD (chronic obstructive pulmonary disease) J44.9 [facility] [id number] [place] [address] 31088- 1595 Nov, [facility] [id number] [place] [address] 78978- 1874 Oct, [facility] [id number] [place] [address] 78179- 9442 Oct, [facility] [id number] [place] [address] 82436- 5535 September, Onychomycosis B35.1 and DM neuro manif type II E11.49 [facility] [id number] [place] [address] 92199- 7058 September, [facility] [id number] [place] [address] 81098- 7525 Aug, [facility] [id number] [place] [address] 71305- 7234 Jul, Sinusitis, unspecified chronicity, unspecified location J32.9 and Cough R05 [facility] [id number] [place] [address] 72878- 8405 13 Jul, 2016 Back pain M54.9 [facility] [id number] [place] [address] 97903- 4695 14 Jun, 2016 Back pain M54.9 [facility] [id number] [place] [address] 11422- 6171 06 Jun, 2016 COPD (chronic obstructive pulmonary disease) J44.9 [facility] [id number] [place] [address] 50110- 6348 17 May, 2016 [facility] [address] 32539- 7420 May, [facility] [id number] [place] [address] 72109- 7232 May, Back pain M54.9 [facility] [id number] [place] [address] 99014- 5873 16 May, 2016 [facility] [id number] [place] [address] 79966- 7872 May, [facility] [id number] [place] [address] 81786- 9093 May, Diabetes E11.9 [facility] [id number] [place] [address] 67280- 2392 11 May, 2016 Diabetes E11.9 ; GERD [...] Need for hepatitis C screening test Z11.59 [facility] [id number] [place] [address] 75688- 8179 May, HTN (hypertension) I10 [facility] [address] [id number] [place] [address]- 5280 Apr, [facility] [address] [id number] [place] [address]- 2697 Apr, [facility] [address] [facility] [id number] [place] [address]- 4653 Apr, [facility] [id number] [place] [address], [place] [address]- 6171 Apr, [facility] [address] [facility] [id number] [place] [address]- 9239 Apr, [facility] [address] [facility] [id number] [place] [address], [place] [address]- 3031 Mar, [facility] [id number] [place] [address], [place] [address]- 5853 Mar, [facility] [address] [facility] [id number] [place] [address]- 4147 Mar, [facility] [id number] [place] [address] 87366- 5732 Mar, [facility] [address], [place] [address]- 1855 Mar, Dental examination Z01.20 [facility] [id number], [place] [address]- 6011 Feb, [facility] [address] [facility] [id number], [place] [address]- 7348 Feb, [facility] [id number], [place] [address]- 6867 13 Feb, 2016 Back pain M54.9 [facility] [address] [facility] [id number], [place] [address]- 5567 23 Jan, 2016 [facility] [address], [place] [address]- 9672 Jan, [facility] [address], [place] [address]- 0681 Dec, Diabetes E11.9 ; GERD (gastroesophageal reflux disease) K21.9 ; ED (erectile dysfunction) N52.9 ; HTN (hypertension) I10 ; Insomnia G47.00 ; COPD (chronic obstructive pulmonary disease) J44.9 ; Neuropathy G62.9 and Bipolar depression F31.30 [facility] [id number] [place] [address] 22251- 1056 Dec, 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 complication E11.49 and Onychomycosis B35.1 [facility] [id number] [place] [address] 75516- 1651 Dec, [facility] [id number] [place] [address] 50738- 2245 Dec, [facility] [id number] [place] [address] 36519- 9139 Dec, [facility] [id number] [place] [address] 54887- 3333 Dec, [facility] [id number] [place] [address] 70978- 5779 Nov, [facility] [id number] [place] [address] 66793- 8310 Nov, [facility] [id number] [place] [address] 36540- 2847 Oct, [facility] [id number] [place] [address] 37936- 6430 Oct, [facility] [id number] [place] [address] 78091- 3656 Oct, Back pain M54.9 [facility] [id number] [place] [address] 09106- 3084 Oct, [facility] [id number] [place] [address] 53729- 0180 Oct, [facility] [address], [place] [address]- 3819 Oct, [facility] [id number] [place] [address] 34873- 1737 Oct, HTN (hypertension) I10 [facility] [id number] [place] [address] 85312- 2823 Oct, Back pain M54.9 [facility] [id number] [place] [address] 85651- 7968 Oct, Chronic pain syndrome G89.4 [facility] [address] 05746- 0527 September, Back pain M54.9 [facility] [id number] [place] [address] 15666- 8706 September, HTN (hypertension) I10 [facility] [id number] [place] [address] 30592- 5961 Aug, Porokeratosis Q82.8 ; Onychomycosis B35.1 and 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 complication E11.49 [facility] [id number] [place] [address] 45230- 1481 Aug, GERD (gastroesophageal reflux disease) K21.9 ; Diabetes E11.9 ; HTN (hypertension) I10 ; Insomnia G47.00 ; Restless legs syndrome G25.81 ; COPD (chronic obstructive pulmonary disease) J44.9 ; Back pain M54.9 and Bipolar 1 disorder F31.9 [facility] [id number] [place] [address] 07321- 5046 Aug, [facility] [id number] [place] [address] 21240- 0243 Aug, [facility] [id number] [place] [address] 77541- 2482 Aug, [facility] [address] [place] [address]- 7977 Aug, [facility] [id number] [place] [address] 43346- 3851 Jul, [facility] [address], [place] [address]- 3993 Jul, [facility] [id number] [place] [address] 79073- 5599 30 Jul, 2015 [facility] [id number] [place] [address] 99426- 8806 16 Jul, 2015 [facility] [id number] [place] [address] 68974- 6964 Jul, [facility] [id number] [place] [address] 71247- 0532 Jul, [facility] [id number] [place] [address] 67742- 9584 Jun, Decubital ulcer L89.90 ; Diabetes E11.9 ; Back pain M54.9 ; HTN (hypertension) I10 and COPD (chronic obstructive pulmonary disease) J44.9 [facility] [address], [place] [address]- 9429 Jun, [facility] [address], [place] [address]- 1344 Jun, [facility] [address], [place] [address]- 3537 Jun, [facility] [address], [place] [address]- 1604 Jun, [facility] [id number] [place] [address] 11052- 8722 Jun, Diabetes E11.9 ; Insomnia G47.00 ; Decubital ulcer L89.90 ; GERD (gastroesophageal reflux disease) K21.9 ; Back pain M54.9 ; Superficial fungus infection of skin B36.9 and HTN (hypertension) I10 [address] [id number] [id number] Jun, Dental examination Z01.20 [facility] [address], [place] [address]- 3494 May, [facility] [address], [place] [address]- 8796 May, [facility] [id number] [address]- 6741 May, [facility] [id number] [place] [address] 05873- 7758 May, Diabetes E11.9 ; HTN (hypertension) I10 and Decubital ulcer L89.90 [facility] [address], [place] [address]- 8166 May, HTN (hypertension) I10 ; Decubital ulcer L89.90 and Diabetes E11.9 [facility] [address], [place] [address]- 4075 30 Apr, 2015 Diabetes E11.9 ; GERD (gastroesophageal reflux disease) K21.9 ; Back pain M54.9 ; HTN (hypertension) I10 ; Restless legs syndrome G25.81 and Decubital ulcer L89.90 [facility] [address], [place] [address]- 3903 Apr, [facility] [address] [place] [address]- 8651 Apr, Diabetes E11.9 ; HTN (hypertension) I10 ; Restless legs syndrome G25.81 ; GERD (gastroesophageal reflux disease) K21.9 and COPD ( chronic obstructive pulmonary disease) J44.9 [facility] [address] [address]- 1614 Mar, [facility] [address], [place] [address]- 5409 Mar, [facility] [id number] [place] [address] 15461- 9323 Mar, Diabetes E11.9 ; Abscess L02.91 and Restless legs syndrome G25.[address] 18396- 9757 Mar, [address] 75314- 2805 Feb, GERD (gastroesophageal reflux disease) K21.9 ; Back pain M54.9 ; ED (erectile dysfunction) N52.9 ; Diabetes E11.9 ; HTN (hypertension) I10 and Insomnia G47.[address] 80922- 6455 Feb, [address] 34748- 4482 Feb, [address] 38195- 5804 Jan, [place] [id number] [place] [address] 43101- 9414 Jan, Diabetes 250.00 ; Nondependent cannabis abuse, continuous 305.21 ; Cough 786.2 ; Schizoaffective disorder, unspecified 295.70 ; Sciatica 724.3 ; Other, mixed, or unspecified nondependent drug abuse, unspecified 305.90 ; Chronic pain 338.29 ; GERD (gastroesophageal reflux disease) 530.81 and HTN (hypertension) 401.9 [place] [id number] [place] [address] 89225- 8407 Jan, [place] [id number] [place] [address] 58401- 8370 Jan, [place] [id number] [place] [address] 92086- 1935 Jan, Chronic pain associated with significant psychosocial dysfunction 338.4 ; Diabetes mellitus without mention of complication, type I [ juvenile type], uncontrolled 250.03 ; Benign essential hypertension 401.1 ; Schizoaffective disorder, unspecified 295.70 ; Wheezing 786.07 ; Ear ache 388.70 ; Cough 786.2 ; Sciatica 724.3 and Foot pain, bilateral 729.5 [facility] [id number] [place] [address] 82339- 6122 Dec, [facility] [id number] [place] [address] 05125- 2317 Dec, [facility] [address] 20028- 7241 Dec, [facility] [id number] [place] [address] 36180- 2784 Dec, [facility] [id number] [place] [address] 67234- 4670 Dec, [facility] [id number] [place] [address] 82176- 7599 Nov, Elevated liver enzymes 790.5 [facility] [id number] [place] [address] 83484- 6464 Nov, [facility] [id number] [place] [address] 32555- 5426 Nov, [facility] [id number] [place] [address] 03015- 4726 Nov, [facility] [id number] [place] [address] 47341- 1477 Nov, Benign essential hypertension 401.1 ; Diabetes mellitus without mention of complication, type I [juvenile type], uncontrolled 250.03 and Nondependent cannabis abuse, continuous 305.21 [facility] [id number] [place] [address] 30567- 4074 Oct, Cellulitis 682.9 and Benign essential hypertension 401.1 [facility] [id number] [place] [address] 17715- 8938 Oct, [facility] [id number] [place] [address] 05978- 4428 September, [facility] [place] [facility] [address] [id number] [place] [address] September, [facility] [place] [facility] [address] [id number] [place] [address]- [address]46 Aug, [facility] [place] [facility] [address] [id number] [place] [address]- [address] Aug, [facility] [place] [facility] [address] [id number] [place] [address]- [address]879 Aug, [facility] [place] [facility] [address] [id number] [place] [address]- 7994 Aug, [facility] [place] [facility] [address] [id number] [place] [address]- 6841 Jul, [facility] [place] [facility] [address] [id number] [place] [address]- 26[address] Jul, [facility] [place] [facility] [address] [id number] [place] [address]- 5752 Jul, [facility] [place] [facility] [address] [id number] [place] [address]- 8028 Jul, [facility] [place] [facility] [address] [id number] [place] [address]- 4282 Jul, [facility] [place] [facility] [address] [id number] [place] [address]- 9680 Jul, [facility] [place] [facility] [address] [id number] [address] Jun, [facility] [place] [facility] [address] [id number] [place] [address]- 8357 Jun, [facility] [place] [facility] [address] [id number] [place] [address]- 6534 Jun, [facility] [place] [facility] [address] [id number] [place] [address] 1840 Jun, [facility] [place] [facility] [address] [id number] [place] [address]- 6206 Jun, [facility] [address] [id number] [place] [address]- 65[address] May, [facility] [place] [facility] [address] [id number] [place] [address]- 3386 May, [facility] [address] [id number] [place] [address]- 3519 May, [facility] [place] [facility] [address] [id number] [place] [address]- 0463 May, [facility] [address] [id number] [place] [address]- 0160 May, [facility] [place] [facility] [address] [id number] [place] [address]- 4433 May, [facility] [address] [id number] [place] [address]- 9400 May, [facility] [address] [address] [id number] [place] [address] May, [facility] [address] [id number] [place] [address] Apr, [facility] [address] [id number] [place] [address] Apr, [facility] [place] [facility] [address] [id number] [place] [address] Apr, [facility] [place] [facility] [address] [id number] [place] [address] Apr, [facility] [place] [facility] [address] [id number] [place] [address] Mar, [facility] [place] [facility] [address] [id number] [place] [address] Mar, [facility] [place] [facility] [address] [id number] [place] [address] Mar, [facility] [place] [facility] [address] [id number] [place] [address] Mar, [facility] [place] [facility] [address] [id number] [place] [address] Feb, [facility] [place] [facility] [address] [id number] [place] [address] Feb, [facility] [place] [facility] [address] [id number] [place] [address] Feb, [facility] [place] [facility] [address] [id number] [place] [address] Feb, [facility] [place] [facility] [address] [id number] [place] [address] Feb, [facility] [place] [facility] [address] [id number] [place] [address] Feb, [facility] [place] [facility] [address] [id number] [place] [address] Jan, [facility] [place] [facility] [address] [id number] [place] [address] Jan, [facility] [place] [facility] [address] [id number] [place] [address] Jan, [facility] [place] [facility] [address] [id number] [place] [address] Jan, [facility] [place] [facility] [address] [id number], [place] [address] Dec, [facility] [place] [facility] [address] [id number] [place] [address] Dec, [facility] [place] [facility] [address] [id number] [place] [address] Dec, [facility] [place] [facility] [address] [id number] [place] [address] Dec, [facility] [place] [facility] [address] [id number] [place] [address] Dec, [facility] [place] [facility] [address] [id number] [place] [address] Dec, [facility] [place] [facility] [address] [id number] [place] [address] Oct, [facility] [place] [facility] [address] [id number] [place] [address] Oct, [facility] [place] [facility] [address] [id number] [place] [address] September, [facility] [place] [facility] [address] [id number] [place] [address] September, [facility] [place] [facility] [address] [id number] [place] [address] September, [facility] [place] [facility] [address] [id number] [place] [address] September, [facility] [place] [facility] [address] [id number] [place] [address] September, [facility] [place] [facility] [address] [id number] [place] [address] September, [facility] [place] [facility] [address] [id number] [place] [address] Aug, [facility] [place] [facility] [address] [id number] [place] [address] Aug, [facility] [place] [facility] [address] [id number] [place] [address] Aug, [facility] [place] [facility] [address] [id number] [place] [address] Aug, [facility] [place] [facility] [address] [id number] [place] [address] Jul, [facility] [place] [facility] [address] [id number] [place] [address] Jul, [facility] [place] [facility] [address] [id number] [place] [address] Jun, [facility] [address] [id number] [place] [address] Jun, [facility] [address] [id number] [place] [address] May, [facility] [address] [id number] [place] [address] May, [facility] [address] [id number] [place] [address] Jan, [facility] [address] [id number] [place] [address] Dec, [facility] [address] [id number] [place] [address] Jun, [facility] [address] [id number] [place] [address] May, [facility] [address] [id number] [place] [address] Nov, [facility] [address] [id number] [place] [address] September, [facility] [address] [id number] [place] [address] Aug, [facility] [address] [id number] [place] [address] Aug, [facility] [place] [facility] [address] [id number] [place] [address] Aug, [facility] [place] [facility] [address] [id number] [place] [address] Aug, [facility] [place] [facility] [address] [id number] [place] [address] Nov, [facility] [place] [facility] [address] [id number], [place] [address] Oct, [facility] [address] [id number] [address] Jul, [facility] [id number], [place] [address] Feb, [facility] [address] [id number], [place] [address] Feb, [facility] [id number], [place] [address] Apr, [facility] [id number], [place] [address] Apr, [facility] [id number], [place] [address] Feb, [facility] [id number], [place] [address] Feb, [facility] [address] [id number], [place] [address] Jul, IMMUNIZATIONS No Known Immunizations SOCIAL HISTORY Never Assessed REASON FOR VISIT Medication refill request PLAN OF CARE VITAL SIGNS MEDICATIONS Unknown [...]
--- OUTSIDE RECORDS SUMMARY | 2018-09-15 22:22 | XMS REPORT ---
Author Author YVES BLEVINS [facility] Address [address] [place] [address] Care Team Providers Care Medical Records Tech Name Role Phone YVES BLEVINS Unavailable PROBLEMS Type Condition ICD9-CM Code CEE71-MJ Code Onset Dates Condition Status SNOMED Code Problem HTN (hypertension) I10 Active 68460781 Problem Restless legs syndrome G25.81 Active 095645969 Problem GERD (gastroesophageal reflux disease) K21.9 Active 432891147 Problem Chronic hepatitis C without hepatic coma B18.2 Active 525405853 Problem ED (erectile dysfunction) N52.9 Active 992929707 Problem PAD (peripheral artery disease) I73.9 Active 240760163 Problem Ulcer of right foot, unspecified ulcer stage L97.519 Active 69740179 Problem 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 827744093 Problem COPD (chronic obstructive pulmonary disease) J44.9 Active 56082652 Problem DM neuro manif type II E11.49 Active 72089855 Problem Sinusitis, unspecified chronicity, unspecified location J32.9 Active 09338905 ALLERGIES No Information ENCOUNTERS Encounter Location Date Diagnosis [facility] [id number] [place] [address] 11245- 8194 Apr, Polyneuropathy in diseases classified elsewhere G63 [facility] [id number] [place] [address] 09341- 1033 Mar, Back pain M54.9 [facility] [id number] [place] [address] 78251- 4527 Mar, [facility] [id number] [place] [address] 16078- 5891 Mar, Back pain M54.9 [facility] [id number] [place] [address] 92894- 3881 Mar, [facility] [id number] [place] [address] 25948- 3573 Mar, [facility] [id number] [place] [address] 80157- 1131 Mar, Polyneuropathy in diseases classified elsewhere G63 [facility] [id number] [place] [address] 79430- 4308 Feb, Back pain M54.9 [facility] [address] 83171- 9973 Jan, Back pain M54.9 [facility] [address] 23148- 9572 Jan, [facility] [id number] [place] [address] 18712- 0893 Jan, [facility] [address] 70525- 2717 Dec, Back pain M54.9 [facility] [id number] [place] [address] 76911- 3761 Dec, [facility] [id number] [place] [address] 45658- 3606 Dec, Upper respiratory tract infection, unspecified type J06.9 [facility] [id number] [place] [address] 65766- 8335 Dec, [facility] [id number] [place] [address] 30531 -6533 Dec, Acute suppurative otitis media of right ear without spontaneous rupture of tympanic membrane, recurrence not specified H66.001 and Acute nasopharyngitis J00 [facility] [id number] [place] [address] 23598- 8341 Dec, Back pain M54.9 [facility] [id number] [place] [address] 84036- 0243 Dec, Foot infection L08.9 and 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 complication E11.49 [facility] [id number] [place] [address] 91287- 2741 Nov, Cellulitis of toe of right foot L03.031 ; Polyneuropathy in diseases classified elsewhere G63 and HTN (hypertension) I10 [facility] [id number] [place] [address] 11349- 7739 16 Nov, 2017 [facility] [id number] [place] [address] 97568- 7667 Nov, [facility] [id number] [place] [address] 79006- 8811 Nov, Back pain M54.9 [facility] [id number] [place] [address] 60902- 5217 Nov, Shortness of breath R06.02 [facility] [id number] [place] [address] 01196- 1628 Nov, [facility] [id number] [place] [address] 85025- 5471 Oct, [facility] [id number] [place] [address] 94016- 5504 Oct, [facility] [id number] [place] [address] 85085- 4746 Oct, [facility] [id number] [place] [address] 55181- 5164 Oct, [facility] [id number] [place] [address] 58596- 9386 Oct, [facility] [id number] [place] [address] 86728- 0913 Oct, Back pain M54.9 [facility] [id number] [place] [address] 85448- 8287 05 Oct, 2017 Back pain M54.9 [facility] [id number] [place] [address] 66275- 9741 Oct, [facility] [id number] [place] [address] 32179- 7135 September, [facility] [id number] [place] [address] 65466- 8143 September, [facility] [id number] [place] [address] 56356- 0258 September, [facility] [id number] [place] [address] 24927- 3146 September, 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 complication E11.49 and Hypotension, unspecified hypotension type I95.9 [facility] [id number] [place] [address] 18713- 4860 September, [facility] [id number] [place] [address] 76746- 9698 September, [facility] [id number] [place] [address] 71277- 4361 September, Back pain M54.9 [facility] [id number] [place] [address] 86114- 4208 Aug, [facility] [id number] [place] [address] 65810- 6447 Aug, Acute cystitis with hematuria N30.01 ; Ulcer of right foot, unspecified ulcer stage L97.519 ; HTN (hypertension) I10 ; COPD (chronic obstructive pulmonary disease) J44.9 and DM neuro manif type II E11.49 [facility] [id number] [place] [address] 33441- 3351 Aug, Back pain M54.9 [facility] [id number] [place] [address] 93563- 9938 Jul, [facility] [id number] [place] [address] 19602- 8577 Jul, Back pain M54.9 [facility] [id number] [place] [address] 41097- 2332 Jul, [facility] [id number] [place] [address] 35437- 2983 Jul, DM neuro manif type II E11.49 and Ulcer of right foot, unspecified ulcer stage L97.519 [facility] [id number] [place] [address] 99661- 7136 Jun, [facility] [address] 39293- 8627 Jun, [facility] [id number] [place] [address] 05084- 0388 May, 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 complication E11.49 ; GERD (gastroesophageal reflux disease) K21.9 and PAD ( peripheral artery disease) I73.9 [facility] [id number] [place] [address] 34341- 5048 May, Decubital ulcer L89.90 ; Diabetes E11.9 and GERD ( gastroesophageal reflux disease) K21.9 [facility] [id number] [place] [address] 28046- 4682 May, [facility] [id number] [place] [address] 39133- 8263 Apr, [facility] [address], [place] [address]- 0862 Mar, [facility] [id number] [place] [address] 88090- 0514 Mar, [facility] [id number] [place] [address] 88689- 1991 Feb, [facility] [id number] [place] [address] 45912- 5934 Feb, [facility] [address] [address]- 4962 29 Jan, 2017 [facility] [id number] [place] [address] 62108- 8145 Jan, HTN (hypertension) I10 [facility] [id number] [place] [address] 99915- 3499 Jan, [facility] [id number] [place] [address] 65600- 1980 Dec, Back pain M54.9 [facility] [id number] [place] [address] 54068- 1242 Dec, Back pain M54.9 [facility] [id number] [place] [address] 24898 -8693 Dec, Encounter for immunization Z23 and Puncture wound of right foot, initial encounter S91.331A [facility] [id number] [place] [address] 57880- 6275 Dec, [facility] [id number] [place] [address] 68725- 9694 Nov, [facility] [id number] [place] [address] 94085- 5400 Nov, COPD (chronic obstructive pulmonary disease) J44.9 [facility] [id number] [place] [address] 05966- 4945 Nov, [facility] [id number] [place] [address] 58859- 0281 Oct, [facility] [id number] [place] [address] 54266- 3542 Oct, [facility] [id number] [place] [address] 97639- 0780 September, Onychomycosis B35.1 and DM neuro manif type II E11.49 [facility] [id number] [place] [address] 80318- 6283 September, [facility] [id number] [place] [address] 98510- 7251 Aug, [facility] [address], [place] [address]- 7650 29 Jul, 2016 Sinusitis, unspecified chronicity, unspecified location J32.9 and Cough R05 [facility] [address] [address]- 7874 13 Jul, 2016 Back pain M54.9 [facility] [id number] [place] [address] 73666- 6325 14 Jun, 2016 Back pain M54.9 [facility] [id number] [place] [address] 18974- 0077 06 Jun, 2016 COPD (chronic obstructive pulmonary disease) J44.9 [facility] [id number] [address]- 0400 17 May, 2016 [facility] [id number] [place] [address] 61055- 6991 May, [facility] [id number] [place] [address] 34505- 8496 May, Back pain M54.9 [facility] [id number] [place] [address] 00924- 9533 16 May, 2016 [facility] [id number] [place] [address] 73432- 9218 May, [facility] [id number] [place] [address] 32612- 4009 May, Diabetes E11.9 [facility] [address], [place] [address]- 8528 11 May, 2016 Diabetes E11.9 ; GERD [...] Need for hepatitis C screening test Z11.59 [facility] [address] [address]- 8259 May, HTN (hypertension) I10 [facility] [address] [facility] [id number] [address]- 1679 Apr, [facility] [address] [facility] [id number] [place] [address] 64462- 7792 Apr, [facility] [address] [facility] [id number] [place] [address] 78565- 3286 Apr, [facility] [id number] [place] [address] 18174- 5955 Apr, [facility] [id number] [place] [address] 27670- 4748 Apr, [facility] [id number] [place] [address] 32075- 2393 Mar, [facility] [id number] [place] [address] 86951- 8696 Mar, [facility] [id number] [place] [address] 54964- 2743 Mar, [facility] [address] [address]- 4883 Mar, [facility] [id number] [place] [address] 95698- 6816 Mar, Dental examination Z01.20 [facility] [id number] [address]- 7836 Feb, [facility] [id number] [place] [address] 59693- 4169 Feb, [facility] [address] [address]- 6990 Feb, Back pain M54.9 [facility] [id number] [place] [address] 18410- 6075 Jan, [facility] [address], [place] [address]- 0131 Jan, [facility] [id number] [place] [address] 62727- 8996 Dec, Diabetes E11.9 ; GERD (gastroesophageal reflux disease) K21.9 ; ED (erectile dysfunction) N52.9 ; HTN (hypertension) I10 ; Insomnia G47.00 ; COPD (chronic obstructive pulmonary disease) J44.9 ; Neuropathy G62.9 and Bipolar depression F31.30 [facility] [id number] [place] [address] 27692- 3677 Dec, 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 complication E11.49 and Onychomycosis B35.1 [facility] [id number] [place] [address] 47659- 8331 Dec, [facility] [id number] [place] [address] 95937- 3033 Dec, [facility] [id number] [place] [address] 19313- 7985 Dec, [facility] [id number] [place] [address] 64989- 8465 Dec, [facility] [id number] [place] [address] 78934- 0536 Nov, [facility] [id number] [place] [address] 86387- 2586 Nov, [facility] [address] [address]- 4975 Oct, [facility] [id number] [place] [address] 55956- 5445 Oct, [facility] [id number] [address]- 7537 Oct, Back pain M54.9 [facility] [id number] [place] [address] 75360- 2890 Oct, [facility] [id number] [place] [address] 77492- 9948 Oct, [facility] [id number] [place] [address] 84862- 8152 Oct, [facility] [id number] [place] [address] 08120- 8235 Oct, HTN (hypertension) I10 [facility] [id number] [place] [address] 41526- 6974 Oct, Back pain M54.9 [place] [facility] [address] 04116- 5926 Oct, Chronic pain syndrome G89.4 [facility] [id number] [place] [address] 38282- 0972 September, Back pain M54.9 [facility] [id number] [place] [address] 44604- 7237 September, HTN (hypertension) I10 [facility] [id number] [place] [address] 81804- 2721 Aug, Porokeratosis Q82.8 ; Onychomycosis B35.1 and 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 complication E11.49 [facility] [id number] [place] [address] 53236- 1887 Aug, GERD (gastroesophageal reflux disease) K21.9 ; Diabetes E11.9 ; HTN (hypertension) I10 ; Insomnia G47.00 ; Restless legs syndrome G25.81 ; COPD (chronic obstructive pulmonary disease) J44.9 ; Back pain M54.9 and Bipolar 1 disorder F31.9 [facility] [id number] [place] [address] 96924- 0824 Aug, [place] [facility] [id number] [place] [address] 26216- 9400 Aug, [place] [address] [facility] [id number] [place] [address]- 4272 Aug, [facility] [address] [facility] [id number] [place] [address]- 9379 Aug, [facility] [address] [facility] [id number] [place] [address]- 6778 Jul, [facility] [address] [facility] [id number] [place] [address]- 3121 31 Jul, 2015 [facility] [address] [facility] [id number] [place] [address]- 4170 30 Jul, 2015 [facility] [address] [facility] [id number] [place] [address]- 1651 16 Jul, 2015 [facility] [id number] [place] [address]- 9533 15 Jul, 2015 [facility] [id number] [place] [address]- 1689 Jul, [facility] [address], [place] [address]- 2932 17 Jun, 2015 Decubital ulcer L89.90 ; Diabetes E11.9 ; Back pain M54.9 ; HTN (hypertension) I10 and COPD (chronic obstructive pulmonary disease) J44.9 [facility] [address], [place] [address]- 7237 Jun, [facility] [address], [place] [address]- 0946 Jun, [facility] [address] [facility] [id number] [place] [address]- 8892 Jun, [facility] [id number] [address]- 2021 Jun, [facility] [id number] [address]- 9968 Jun, Diabetes E11.9 ; Insomnia G47.00 ; Decubital ulcer L89.90 ; GERD (gastroesophageal reflux disease) K21.9 ; Back pain M54.9 ; Superficial fungus infection of skin B36.9 and HTN (hypertension) I10 [address] [id number] [id number] Jun, Dental examination Z01.20 [facility] [address], [place] [address]- 6751 May, [facility] [id number] [place] [address] 70402- 5157 May, [place] [id number] [place] [address] 52431- 9009 May, [facility] [id number] [place] [address] 43444- 1646 May, Diabetes E11.9 ; HTN (hypertension) I10 and Decubital ulcer L89.90 [place] [facility] [address], [place] [address]- 3843 May, HTN (hypertension) I10 ; Decubital ulcer L89.90 and Diabetes E11.9 [place] [facility] [id number] [place] [address] 91242- 7838 Apr, Diabetes E11.9 ; GERD (gastroesophageal reflux disease) K21.9 ; Back pain M54.9 ; HTN (hypertension) I10 ; Restless legs syndrome G25.81 and Decubital ulcer L89.90 [place] [facility] [address], [place] [address]- 4249 Apr, [facility] [facility] [id number] [place] [address] 63868- 5534 Apr, Diabetes E11.9 ; HTN (hypertension) I10 ; Restless legs syndrome G25.81 ; GERD (gastroesophageal reflux disease) K21.9 and COPD ( chronic obstructive pulmonary disease) J44.9 [place] [id number] [place] [address] 63717- 8611 Mar, [facility] [id number] [place] [address] 02040- 5426 Mar, [facility] [address] 76546- 1711 Mar, Diabetes E11.9 ; Abscess L02.91 and Restless legs syndrome G25.81 [place] [facility] [address] 98597- 2472 Mar, [facility] [address] 55981- 9279 Feb, GERD (gastroesophageal reflux disease) K21.9 ; Back pain M54.9 ; ED (erectile dysfunction) N52.9 ; Diabetes E11.9 ; HTN (hypertension) I10 and Insomnia G47.00 [place] [address] 57586- 8087 Feb, [place] [facility] [address] 60872- 6077 Feb, [place] [address] 84823- 0503 Jan, [place] [facility] [address] 23403- 9779 Jan, Diabetes 250.00 ; Nondependent cannabis abuse, continuous 305.21 ; Cough 786.2 ; Schizoaffective disorder, unspecified 295.70 ; Sciatica 724.3 ; Other, mixed, or unspecified nondependent drug abuse, unspecified 305.90 ; Chronic pain 338.29 ; GERD (gastroesophageal reflux disease) 530.81 and HTN (hypertension) 401.9 [place] [facility] [id number] [place] [address] 99959- 8205 Jan, [facility] [address] 15696- 0543 Jan, [facility] [id number] [place] [address] 40185- 2002 Jan, Chronic pain associated with significant psychosocial dysfunction 338.4 ; Diabetes mellitus without mention of complication, type I [ juvenile type], uncontrolled 250.03 ; Benign essential hypertension 401.1 ; Schizoaffective disorder, unspecified 295.70 ; Wheezing 786.07 ; Ear ache 388.70 ; Cough 786.2 ; Sciatica 724.3 and Foot pain, bilateral 729.5 [facility] [id number] [place] [address] 71929- 0087 Dec, [facility] [address] 47953- 0747 Dec, [facility] [address] 70016- 5345 Dec, [facility] [address] 45875- 7631 Dec, [facility] [id number] [place] [address] 47306- 1794 Dec, [facility] [id number] [place] [address] 76460- 6427 Nov, Elevated liver enzymes 790.5 [facility] [address] 77573- 3956 Nov, [facility] [id number] [place] [address] 40378- 0546 Nov, [facility] [id number] [place] [address] 33390- 7502 Nov, [facility] [id number] [place] [address] 80561- 4103 Nov, Benign essential hypertension 401.1 ; Diabetes mellitus without mention of complication, type I [juvenile type], uncontrolled 250.03 and Nondependent cannabis abuse, continuous 305.21 [facility] [id number] [place] [address] 16853- 8811 Oct, Cellulitis 682.9 and Benign essential hypertension 401.1 [facility] [address] [place] [address] Oct, [facility] [place] [facility] [address] [id number] [place] [address] September, [facility] [place] [facility] [address] [id number] [place] [address] September, [facility] [place] [facility] [address] [id number] [place] [address] Aug, [facility] [place] [facility] [address] [id number] [place] [address] Aug, [facility] [place] [facility] [address] [id number] [place] [address] Aug, [facility] [place] [facility] [address] [id number] [place] [address] Aug, [facility] [place] [facility] [address] [id number] [place] [address] Jul, [facility] [place] [facility] [address] [id number] [place] [address] Jul, [facility] [place] [facility] [address] [id number] [place] [address] Jul, [facility] [place] [facility] [address] [facility] [id number] [place] [address] Jul, [facility] [place] [facility] [address] [id number] [place] [address] Jul, [facility] [place] [facility] [address] [facility] [id number] [place] [address] Jul, [facility] [place] [facility] [address] [id number] [place] [address] Jun, [facility] [place] [facility] [address] [id number] [place] [address]- [address] Jun, [facility] [place] [facility] [address] [facility] [id number] [place] [address] Jun, [facility] [place] [facility] [address] [id number] [place] [address] Jun, [facility] [place] [facility] [address] [id number] [place] [address]- [address] Jun, [facility] [place] [facility] [address] [id number] [place] [address] May, [facility] [place] [facility] [address] [id number] [place] [address]- [address] May, [facility] [place] [facility] [address] [id number] [place] [address] May, [facility] [place] [facility] [address] [id number] [place] [address] May, [facility] [place] [facility] [address] [id number] [place] [address]- [address]183 May, [facility] [place] [facility] [address] [id number] [place] [address] May, [facility] [place] [facility] [address] [id number] [place] [address] May, [facility] [place] [facility] [address] [id number] [place] [address] May, [facility] [place] [facility] [address] [id number] [place] [address]- [address] Apr, [facility] [place] [facility] [address] [id number], [place] [address] Apr, [facility] [place] [facility] [address] [id number] [place] [address] Apr, [facility] [place] [facility] [address] [id number] [place] [address] Apr, [facility] [place] [facility] [address] [id number], [place] [address] Mar, [facility] [place] [facility] [address] [id number], [place] [address] Mar, [facility] [place] [facility] [address] [id number] [place] [address] Mar, [facility] [place] [facility] [address] [id number] [place] [address] Mar, [facility] [place] [facility] [address] [facility] [id number] [place] [address] Feb, [facility] [place] [facility] [address] [id number] [place] [address] Feb, [facility] [place] [facility] [address] [id number] [place] [address] Feb, [facility] [place] [facility] [address] [id number] [place] [address] Feb, [facility] [place] [facility] [address] [facility] [id number] [place] [address] Feb, [facility] [place] [facility] [address] [id number] [place] [address] Feb, [facility] [place] [facility] [address] [facility] [id number] [place] [address] Jan, [facility] [place] [facility] [address] [facility] [id number] [place] [address] Jan, [facility] [place] [facility] [address] [id number] [place] [address] Jan, [facility] [place] [facility] [address] [id number] [place] [address] Jan, [facility] [place] [facility] [address] [id number] [place] [address] Dec, [facility] [place] [facility] [address] [id number] [place] [address] Dec, [facility] [place] [facility] [address] [facility] [id number] [place] [address]- [address] Dec, [facility] [place] [facility] [address] [id number] [place] [address] Dec, [facility] [place] [facility] [address] [id number] [place] [address] Dec, [facility] [place] [facility] [address] [id number] [place] [address] Dec, [facility] [place] [facility] [address] [id number] [place] [address] Oct, [facility] [place] [facility] [address] [id number] [place] [address] Oct, [facility] [place] [facility] [address] [id number] [place] [address]- [address] September, [facility] [place] [facility] [address] [id number] [place] [address] September, [facility] [place] [facility] [address] [id number] [place] [address] September, [facility] [place] [facility] [address] [id number] [place] [address] September, [facility] [place] [facility] [address] [id number] [place] [address] September, [facility] [place] [facility] [address] [id number] [place] [address] September, [facility] [place] [facility] [address] [id number] [place] [address] Aug, [facility] [place] [facility] [address] [id number] [place] [address] Aug, [facility] [place] [facility] [address] [id number] [place] [address] Aug, [facility] [place] [facility] [address] [id number] [place] [address] Aug, [facility] [place] [facility] [address] [id number] [place] [address] Jul, [facility] [place] [facility] [address] [id number] [place] [address] Jul, [facility] [place] [facility] [address] [id number] [place] [address] Jun, [facility] [place] [facility] [address] [id number] [place] [address] Jun, [facility] [place] [facility] [address] [id number] [place] [address]- [address] May, [facility] [place] [facility] [address] [id number] [place] [address]- [address] May, [facility] [place] [facility] [address] [id number] [place] [address]- [address] Jan, [facility] [place] [facility] [address] [id number] [place] [address]- [address] Dec, [facility] [place] [facility] [address] [id number] [place] [address]- [address] Jun, [facility] [place] [facility] [address] [id number] [place] [address] May, [facility] [place] [facility] [address] [id number] [place] [address]- [address]67 Nov, [facility] [place] [facility] [address] [id number] [place] [address] September, [facility] [place] [facility] [address] [id number] [place] [address]- [address] Aug, [facility] [place] [facility] [address] [id number] [place] [address] Aug, [facility] [place] [facility] [address] [id number] [place] [address]- 235[address] Aug, [facility] [place] [facility] [address] [id number] [place] [address]- 1416 Aug, [facility] [place] [facility] [address] [id number], [place] [address] 14 Nov, 2010 [facility] [address] [facility] [id number], [place] [address] Oct, [facility] [address] [facility] [id number], [place] [address] Jul, [facility] [address] [facility] [id number], [place] [address] Feb, [facility] [address] [facility] [id number], [place] [address] Feb, [facility] [id number], [place] [address] Apr, [facility] [id number], [place] [address] Apr, [facility] [id number], [place] [address] Feb, [facility] [address] [id number], [place] [address] Feb, [facility] [address] [id number], [place] [address] Jul, IMMUNIZATIONS No Known Immunizations SOCIAL HISTORY Never Assessed REASON FOR VISIT Lyrica refill PLAN OF CARE VITAL SIGNS MEDICATIONS Medication Instructions Dosage Frequency Start Date End Date Duration Status Lyrica 150 MG Orally Twice a day 1 capsule 12h September, 28 days Active RESULTS No Results PROCEDURES [...]
--- OUTSIDE RECORDS SUMMARY | 2018-09-15 22:23 | XMS REPORT ---
Author Author YVES BLEVINS [facility] Address [address] [place] [address] Care Team Providers Care Mender [employer] Name Role Phone YVES BLEVINS Unavailable PROBLEMS Type Condition ICD9-CM Code RVI17-TN Code Onset Dates Condition Status SNOMED Code Problem HTN (hypertension) I10 Active 69417125 Problem Restless legs syndrome G25.81 Active 204835922 Problem GERD (gastroesophageal reflux disease) K21.9 Active 594031578 Problem Chronic hepatitis C without hepatic coma B18.2 Active 674669169 Problem ED (erectile dysfunction) N52.9 Active 477727459 Problem PAD (peripheral artery disease) I73.9 Active 434294867 Problem Ulcer of right foot, unspecified ulcer stage L97.519 Active 15685718 Problem 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 153733602 Problem COPD (chronic obstructive pulmonary disease) J44.9 Active 67027051 Problem DM neuro manif type II E11.49 Active 62494766 Problem Sinusitis, unspecified chronicity, unspecified location J32.9 Active [id number] ALLERGIES No Information ENCOUNTERS Encounter Location Date Diagnosis [facility] [address], [place] [address] Mar, Back pain M54.9 [facility] [address], [place] [address] 00[address] Mar, [facility] [address], [place] [address] 1697 Mar, Back pain M54.9 [facility] [address], [place] [address] 7996 Mar, [facility] [address], [place] [address] 4909 Mar, [facility] [id number] [place] [address] 79761- 2822 Mar, Polyneuropathy in diseases classified elsewhere G63 [facility] [id number] [place] [address] 84576- 3954 Feb, Back pain M54.9 [facility] [id number] [place] [address] 55165- 5667 Jan, Back pain M54.9 [facility] [id number] [place] [address] 18768- 5541 Jan, [facility] [id number] [place] [address] 09590- 8454 Jan, [facility] [id number] [place] [address] 95225- 8382 Dec, Back pain M54.9 [facility] [id number] [place] [address] 72206- 5791 Dec, [facility] [id number] [place] [address] 34582- 7512 Dec, Upper respiratory tract infection, unspecified type J06.9 [facility] [id number] [place] [address] 54490- 2532 Dec, [facility] [id number] [place] [address] 17323 -8148 Dec, Acute suppurative otitis media of right ear without spontaneous rupture of tympanic membrane, recurrence not specified H66.001 and Acute nasopharyngitis J00 [facility] [id number] [place] [address] 31227- 7057 Dec, Back pain M54.9 [facility] [id number] [place] [address] 36135- 6563 Dec, Foot infection L08.9 and 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 complication E11.49 [facility] [id number] [place] [address] 74286- 7841 Nov, Cellulitis of toe of right foot L03.031 ; Polyneuropathy in diseases classified elsewhere G63 and HTN (hypertension) I10 [facility] [id number] [place] [address], [place] [address]- 4172 Nov, [facility] [id number] [place] [address] 15125- 8359 Nov, [facility] [id number] [place] [address] 86997- 3404 Nov, Back pain M54.9 [facility] [id number] [place] [address] 84214- 8493 Nov, Shortness of breath R06.02 [facility] [id number] [place] [address] 76290- 3625 Nov, [facility] [id number] [place] [address] 85822- 3448 Oct, [facility] [id number] [place] [address] 58727- 5325 Oct, [facility] [id number] [place] [address] 94326- 6375 Oct, [facility] [id number] [place] [address] 73943- 3780 Oct, [facility] [id number] [place] [address] 52932- 9257 Oct, [facility] [id number] [place] [address] 22514- 4331 Oct, Back pain M54.9 [facility] [id number] [place] [address] 56418- 8017 Oct, Back pain M54.9 [facility] [id number] [place] [address] 86920- 9386 Oct, [facility] [id number] [place] [address] 40303- 3016 September, [facility] [address], [place] [address]- 2758 September, [facility] [id number] [place] [address] 44782- 2873 September, [facility] [id number] [place] [address] 16687- 8275 September, 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 complication E11.49 and Hypotension, unspecified hypotension type I95.9 [facility] [id number] [place] [address] 00112- 3172 September, [facility] [id number] [place] [address] 40690- 0301 September, [facility] [id number] [place] [address] 61677- 0403 September, Back pain M54.9 [facility] [id number] [place] [address] 62705- 3106 Aug, [facility] [id number] [place] [address] 13137- 4873 Aug, Acute cystitis with hematuria N30.01 ; Ulcer of right foot, unspecified ulcer stage L97.519 ; HTN (hypertension) I10 ; COPD (chronic obstructive pulmonary disease) J44.9 and DM neuro manif type II E11.49 [facility] [id number] [place] [address] 76579- 2036 Aug, Back pain M54.9 [facility] [id number] [place] [address] 97603- 7076 Jul, [facility] [id number] [place] [address] 94487- 8859 Jul, Back pain M54.9 [facility] [id number] [place] [address] 76547- 8096 Jul, [facility] [id number] [place] [address] 69404- 9072 Jul, DM neuro manif type II E11.49 and Ulcer of right foot, unspecified ulcer stage L97.519 [facility] [id number] [place] [address] 84446- 9867 Jun, [facility] [id number] [place] [address] 59165- 9736 Jun, [facility] [address] 25894- 2386 May, 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 complication E11.49 ; GERD (gastroesophageal reflux disease) K21.9 and PAD ( peripheral artery disease) I73.9 [place] [address] 09034- 5238 May, Decubital ulcer L89.90 ; Diabetes E11.9 and GERD ( gastroesophageal reflux disease) K21.9 [facility] [id number] [place] [address] 28356- 4209 May, [facility] [id number] [place] [address] 19875- 5106 Apr, [facility] [id number] [place] [address] 59986- 2976 Mar, [facility] [id number] [place] [address] 98173- 6644 Mar, [facility] [id number] [place] [address] 07912- 0322 Feb, [facility] [id number] [place] [address] 21464- 3386 Feb, [facility] [address] 95649- 2967 Jan, [facility] [id number] [place] [address] 64552- 4760 Jan, HTN (hypertension) I10 [facility] [address] [place] [address]- 4005 Jan, [facility] [id number] [place] [address] 30803- 9466 Dec, Back pain M54.9 [facility] [id number] [place] [address] 53414- 2149 Dec, Back pain M54.9 [facility] [id number] [place] [address] 36968 -3744 Dec, Encounter for immunization Z23 and Puncture wound of right foot, initial encounter S91.331A [facility] [id number] [place] [address] 35555- 9143 Dec, [facility] [id number] [place] [address] 94306- 6919 Nov, [facility] [id number] [place] [address] 85155- 9512 Nov, COPD (chronic obstructive pulmonary disease) J44.9 [facility] [id number] [place] [address] 24070- 9711 Nov, [facility] [id number] [place] [address] 78785- 3392 Oct, [facility] [id number] [place] [address] 34939- 1615 Oct, [facility] [id number] [place] [address] 44261- 3461 September, Onychomycosis B35.1 and DM neuro manif type II E11.49 [facility] [id number] [place] [address] 59172- 8339 September, [facility] [id number] [place] [address] 42173- 3054 Aug, [facility] [id number] [place] [address] 81181- 5957 Jul, Sinusitis, unspecified chronicity, unspecified location J32.9 and Cough R05 [facility] [id number] [place] [address] 22104- 7690 13 Jul, 2016 Back pain M54.9 [facility] [id number] [place] [address] 03092- 3431 14 Jun, 2016 Back pain M54.9 [facility] [id number] [place] [address] 48917- 7407 06 Jun, 2016 COPD (chronic obstructive pulmonary disease) J44.9 [facility] [id number] [place] [address] 58398- 3290 17 May, 2016 [facility] [address] 74386- 0214 May, [place] [id number] [place] [address] 12821- 7261 May, Back pain M54.9 [facility] [id number] [place] [address] 18395- 1888 16 May, 2016 [place] [id number] [place] [address] 57545- 4545 May, [facility] [id number] [place] [address] 99700- 5264 May, Diabetes E11.9 [facility] [id number] [place] [address] 90102- 2729 11 May, 2016 Diabetes E11.9 ; GERD [...] Need for hepatitis C screening test Z11.59 [facility] [id number] [place] [address] 67827- 9204 May, HTN (hypertension) I10 [facility] [address] [id number] [place] [address]- 4682 Apr, [facility] [address] [id number] [place] [address]- 3825 Apr, [facility] [address] [facility] [id number] [place] [address]- 1339 Apr, [facility] [address] [id number] [place] [address], [place] [address]- 5740 Apr, [facility] [address] [facility] [id number] [place] [address]- 2872 Apr, [facility] [address] [facility] [id number] [place] [address], [place] [address]- 4242 Mar, [facility] [id number] [place] [address], [place] [address]- 7001 Mar, [facility] [address] [facility] [id number] [place] [address]- 8082 Mar, [facility] [id number] [place] [address] 01929- 8243 Mar, [facility] [address], [place] [address]- 5012 Mar, Dental examination Z01.20 [facility] [id number], [place] [address]- 5879 Feb, [facility] [address] [facility] [id number] [address]- 4516 Feb, [facility] [id number], [place] [address]- 7246 13 Feb, 2016 Back pain M54.9 [facility] [address] [facility] [id number], [place] [address]- 3120 23 Jan, 2016 [facility] [address], [place] [address]- 6438 Jan, [facility] [address], [place] [address]- 0472 Dec, Diabetes E11.9 ; GERD (gastroesophageal reflux disease) K21.9 ; ED (erectile dysfunction) N52.9 ; HTN (hypertension) I10 ; Insomnia G47.00 ; COPD (chronic obstructive pulmonary disease) J44.9 ; Neuropathy G62.9 and Bipolar depression F31.30 [facility] [id number] [place] [address] 70941- 0081 Dec, 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 complication E11.49 and Onychomycosis B35.1 [facility] [id number] [place] [address] 15104- 0209 Dec, [facility] [id number] [place] [address] 24035- 7246 Dec, [facility] [id number] [place] [address] 24135- 4359 Dec, [facility] [id number] [place] [address] 92004- 0009 Dec, [facility] [id number] [place] [address] 00695- 7445 Nov, [facility] [id number] [place] [address] 93788- 0524 Nov, [facility] [id number] [place] [address] 24797- 6555 Oct, [facility] [id number] [place] [address] 13139- 5303 Oct, [facility] [id number] [place] [address] 04869- 0057 Oct, Back pain M54.9 [facility] [id number] [place] [address] 42014- 1568 Oct, [facility] [id number] [place] [address] 89780- 7802 Oct, [facility] [address], [place] [address]- 3724 Oct, [facility] [id number] [place] [address] 47526- 1154 Oct, HTN (hypertension) I10 [facility] [id number] [place] [address] 31077- 3949 Oct, Back pain M54.9 [place] [id number] [place] [address] 31633- 5635 Oct, Chronic pain syndrome G89.4 [place] [address] 21243- 3264 September, Back pain M54.9 [place] [id number] [place] [address] 03817- 2360 September, HTN (hypertension) I10 [place] [id number] [place] [address] 91834- 7762 Aug, Porokeratosis Q82.8 ; Onychomycosis B35.1 and 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 complication E11.49 [place] [id number] [place] [address] 00563- 5188 Aug, GERD (gastroesophageal reflux disease) K21.9 ; Diabetes E11.9 ; HTN (hypertension) I10 ; Insomnia G47.00 ; Restless legs syndrome G25.81 ; COPD (chronic obstructive pulmonary disease) J44.9 ; Back pain M54.9 and Bipolar 1 disorder F31.9 [place] [id number] [place] [address] 74075- 2763 Aug, [place] [id number] [place] [address] 59850- 0649 Aug, [place] [id number] [place] [address] 42827- 9953 Aug, [place] [address] [place] [address]- 1426 Aug, [facility] [id number] [place] [address] 05873- 7346 Jul, [facility] [address], [place] [address]- 3014 Jul, [facility] [id number] [place] [address] 53792- 2245 30 Jul, 2015 [facility] [id number] [place] [address] 85088- 7087 16 Jul, 2015 [facility] [id number] [place] [address] 70385- 4916 Jul, [facility] [id number] [place] [address] 87633- 9201 Jul, [facility] [id number] [place] [address] 96640- 9720 Jun, Decubital ulcer L89.90 ; Diabetes E11.9 ; Back pain M54.9 ; HTN (hypertension) I10 and COPD (chronic obstructive pulmonary disease) J44.9 [facility] [address], [place] [address]- 2142 Jun, [facility] [address], [place] [address]- 0610 Jun, [facility] [address], [place] [address]- 7176 Jun, [facility] [address], [place] [address]- 6807 Jun, [facility] [id number] [place] [address] 41277- 2263 Jun, Diabetes E11.9 ; Insomnia G47.00 ; Decubital ulcer L89.90 ; GERD (gastroesophageal reflux disease) K21.9 ; Back pain M54.9 ; Superficial fungus infection of skin B36.9 and HTN (hypertension) I10 [address] [id number] [id number] Jun, Dental examination Z01.20 [facility] [address], [place] [address]- 4793 May, [facility] [address], [place] [address]- 1214 May, [place] [id number] [place] [address]- 7084 May, [facility] [id number] [place] [address] 54761- 9375 May, Diabetes E11.9 ; HTN (hypertension) I10 and Decubital ulcer L89.90 [place] [address], [place] [address]- 4772 May, HTN (hypertension) I10 ; Decubital ulcer L89.90 and Diabetes E11.9 [place] [address], [place] [address]- 0685 30 Apr, 2015 Diabetes E11.9 ; GERD (gastroesophageal reflux disease) K21.9 ; Back pain M54.9 ; HTN (hypertension) I10 ; Restless legs syndrome G25.81 and Decubital ulcer L89.90 [place] [address], [place] [address]- 5222 Apr, [place] [address], [place] [address]- 3997 Apr, Diabetes E11.9 ; HTN (hypertension) I10 ; Restless legs syndrome G25.81 ; GERD (gastroesophageal reflux disease) K21.9 and COPD ( chronic obstructive pulmonary disease) J44.9 [facility] [address], [place] [address]- 0771 Mar, [facility] [address], [place] [address]- 6313 Mar, [place] [id number] [place] [address] 15053- 9145 Mar, Diabetes E11.9 ; Abscess L02.91 and Restless legs syndrome G25.[address] 50134- 6955 Mar, [address] 28664- 6991 Feb, GERD (gastroesophageal reflux disease) K21.9 ; Back pain M54.9 ; ED (erectile dysfunction) N52.9 ; Diabetes E11.9 ; HTN (hypertension) I10 and Insomnia G47.[address] 70814- 1590 Feb, [address] 21214- 6239 Feb, [address] 20077- 9716 Jan, [place] [id number] [place] [address] 14652- 1106 Jan, Diabetes 250.00 ; Nondependent cannabis abuse, continuous 305.21 ; Cough 786.2 ; Schizoaffective disorder, unspecified 295.70 ; Sciatica 724.3 ; Other, mixed, or unspecified nondependent drug abuse, unspecified 305.90 ; Chronic pain 338.29 ; GERD (gastroesophageal reflux disease) 530.81 and HTN (hypertension) 401.9 [place] [id number] [place] [address] 67839- 6106 Jan, [place] [id number] [place] [address] 72556- 0838 Jan, [place] [id number] [place] [address] 18596- 1491 Jan, Chronic pain associated with significant psychosocial dysfunction 338.4 ; Diabetes mellitus without mention of complication, type I [ juvenile type], uncontrolled 250.03 ; Benign essential hypertension 401.1 ; Schizoaffective disorder, unspecified 295.70 ; Wheezing 786.07 ; Ear ache 388.70 ; Cough 786.2 ; Sciatica 724.3 and Foot pain, bilateral 729.5 [facility] [id number] [place] [address] 36269- 0419 Dec, [facility] [id number] [place] [address] 65059- 6289 Dec, [facility] [address] [address]- [address] Dec, [facility] [id number] [place] [address] 31076- 5832 Dec, [facility] [id number] [place] [address] [id number]- 9570 Dec, [facility] [id number] [place] [address] 83975- 4331 Nov, Elevated liver enzymes 790.5 [facility] [id number] [place] [address] 17451- 2825 Nov, [facility] [id number] [place] [address] 94330- 9532 Nov, [facility] [id number] [place] [address] 82351- 4450 Nov, [facility] [id number] [place] [address] 02976- 4401 Nov, Benign essential hypertension 401.1 ; Diabetes mellitus without mention of complication, type I [juvenile type], uncontrolled 250.03 and Nondependent cannabis abuse, continuous 305.21 [facility] [id number] [place] [address] 55183- 9668 Oct, Cellulitis 682.9 and Benign essential hypertension 401.1 [facility] [id number] [place] [address] 89824- 8855 Oct, [facility] [id number] [place] [address] 17008- 4977 September, [facility] [place] [facility] [address] [id number] [place] [address] 74[address] September, [facility] [place] [facility] [address] [id number] [place] [address] 2058 Aug, [facility] [place] [facility] [address] [id number] [place] [address]- 9659 Aug, [facility] [place] [facility] [address] [id number] [place] [address]- 8430 Aug, [facility] [place] [facility] [address] [id number] [place] [address]- 5449 Aug, [facility] [place] [facility] [address] [id number] [place] [address]- 7523 Jul, [facility] [place] [facility] [address] [id number] [place] [address]- 8749 Jul, [facility] [place] [facility] [address] [id number] [place] [address]- 7244 Jul, [facility] [place] [facility] [address] [id number] [place] [address]- 1703 Jul, [facility] [place] [facility] [address] [id number] [place] [address]- 6036 Jul, [facility] [place] [facility] [address] [id number] [place] [address]- 1900 Jul, [facility] [place] [facility] [address] [id number], [place] [address] 8724 Jun, [facility] [place] [facility] [address] [id number] [place] [address]- 2045 Jun, [facility] [place] [facility] [address] [id number] [place] [address]- 8918 Jun, [facility] [place] [facility] [address] [id number] [place] [address]- 0979 Jun, [facility] [place] [facility] [address] [id number] [place] [address]- 2536 Jun, [facility] [address] [id number] [place] [address]- 7616 May, [facility] [place] [facility] [address] [id number] [place] [address]- 7906 May, [facility] [address] [id number] [place] [address]- 6123 May, [facility] [place] [facility] [address] [id number] [place] [address] May, [facility] [address] [id number] [place] [address] May, [facility] [place] [facility] [address] [id number] [place] [address] May, [facility] [address] [id number] [place] [address] May, [facility] [address] [id number] [place] [address] May, [facility] [address] [id number] [place] [address] Apr, [facility] [address] [id number] [place] [address] Apr, [facility] [place] [facility] [address] [id number] [place] [address] Apr, [facility] [place] [facility] [address] [id number] [place] [address] Apr, [facility] [place] [facility] [address] [id number] [place] [address] Mar, [facility] [place] [facility] [address] [id number] [place] [address] Mar, [facility] [place] [facility] [address] [id number] [place] [address] Mar, [facility] [place] [facility] [address] [id number] [place] [address] Mar, [facility] [place] [facility] [address] [id number] [place] [address] Feb, [facility] [place] [facility] [address] [id number] [place] [address] Feb, [facility] [place] [facility] [address] [id number] [place] [address] Feb, [facility] [place] [facility] [address] [id number] [place] [address] Feb, [facility] [place] [facility] [address] [id number] [place] [address] Feb, [facility] [place] [facility] [address] [id number] [place] [address] Feb, [facility] [place] [facility] [address] [id number] [place] [address] Jan, [facility] [place] [facility] [address] [id number] [place] [address] Jan, [facility] [place] [facility] [address] [id number] [place] [address] Jan, [facility] [place] [facility] [address] [id number] [place] [address] Jan, [facility] [place] [facility] [address] [id number], [place] [address] Dec, [facility] [place] [facility] [address] [id number] [place] [address] Dec, [facility] [place] [facility] [address] [id number] [place] [address] Dec, [facility] [place] [facility] [address] [id number] [place] [address]181 Dec, [facility] [place] [facility] [address] [id number] [place] [address] Dec, [facility] [place] [facility] [address] [id number] [place] [address]677 Dec, [facility] [place] [facility] [address] [id number] [place] [address] Oct, [facility] [place] [facility] [address] [id number] [place] [address] Oct, [facility] [place] [facility] [address] [id number] [place] [address] September, [facility] [place] [facility] [address] [id number] [place] [address] September, [facility] [place] [facility] [address] [id number] [place] [address] September, [facility] [place] [facility] [address] [id number] [place] [address] September, [facility] [place] [facility] [address] [id number] [place] [address] September, [facility] [place] [facility] [address] [id number] [place] [address]8 September, [facility] [place] [facility] [address] [id number] [place] [address] Aug, [facility] [place] [facility] [address] [id number] [place] [address] Aug, [facility] [place] [facility] [address] [id number] [place] [address] 39[address] Aug, [facility] [place] [facility] [address] [id number] [place] [address] Aug, [facility] [place] [facility] [address] [id number] [place] [address] Jul, [facility] [place] [facility] [address] [id number] [place] [address]- 3569 Jul, [facility] [place] [facility] [address] [id number] [place] [address] Jun, [facility] [address] [id number] [place] [address] Jun, [facility] [address] [id number] [place] [address] 8589 May, [facility] [address] [id number] [place] [address] 9780 May, [facility] [address] [id number] [place] [address] Jan, [facility] [address] [id number] [place] [address]165 Dec, [facility] [address] [id number] [place] [address] Jun, [facility] [address] [id number] [place] [address] May, [facility] [address] [id number] [place] [address] Nov, [facility] [address] [id number] [place] [address] 8291 September, [facility] [address] [id number] [place] [address]696 Aug, [facility] [address] [id number] [place] [address]- [address] Aug, [facility] [place] [facility] [address] [id number] [place] [address]- [address] Aug, [facility] [place] [facility] [address] [id number] [place] [address]- 6488 Aug, [facility] [place] [facility] [address] [id number] [place] [address] 1634 Nov, [facility] [place] [facility] [address] [id number], [place] [address] Oct, [facility] [address] [id number], [place] [address] Jul, [facility] [address] [facility] [id number], [place] [address] Feb, [facility] [address] [id number], [place] [address] Feb, [facility] [address] [id number], [place] [address] Apr, [facility] [address] [id number], [place] [address] Apr, [facility] [id number], [place] [address] Feb, [facility] [address] [id number], [place] [address] Feb, [facility] [address] [id number], [place] [address] Jul, IMMUNIZATIONS No Known Immunizations SOCIAL HISTORY Never Assessed REASON FOR VISIT Controlled Med Refill PLAN OF CARE VITAL SIGNS MEDICATIONS Medication Instructions Dosage Frequency Start Date End Date Duration Status Hydrocodone-Ibuprofen 7.5-200 MG Orally 3 times a day 1 tablet as needed 8h Mar, 28 days Active RESULTS No Results PROCEDURES [...]
--- OUTSIDE RECORDS SUMMARY | 2018-09-15 22:24 | XMS REPORT ---
Author Author YVES BLEVINS [facility] Address [address] [place] [address] Care Team Providers Care System Analyst Name Role Phone YVES BLEVINS Unavailable PROBLEMS Type Condition ICD9-CM Code IXB59-HY Code Onset Dates Condition Status SNOMED Code Problem HTN (hypertension) I10 Active 19383602 Problem Restless legs syndrome G25.81 Active 307256409 Problem GERD (gastroesophageal reflux disease) K21.9 Active 946318612 Problem Chronic hepatitis C without hepatic coma B18.2 Active 441072263 Problem ED (erectile dysfunction) N52.9 Active 277835325 Problem PAD (peripheral artery disease) I73.9 Active 770099337 Problem Ulcer of right foot, unspecified ulcer stage L97.519 Active 54219266 Problem 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 728873851 Problem COPD (chronic obstructive pulmonary disease) J44.9 Active 49759100 Problem DM neuro manif type II E11.49 Active 22642065 Problem Sinusitis, unspecified chronicity, unspecified location J32.9 Active 14494563 ALLERGIES No Information ENCOUNTERS Encounter Location Date Diagnosis [place] [id number] [place] [address] 33620- 7676 Mar, [facility] [id number] [place] [address] 78132- 3712 Mar, [facility] [id number] [place] [address] 77734- 8480 Mar, [place] [id number] [place] [address] 09355- 0645 Mar, Polyneuropathy in diseases classified elsewhere G63 [place] [id number] [place] [address] 27245- 4004 Feb, Back pain M54.9 [facility] [id number] [place] [address] 29359- 6950 Jan, Back pain M54.9 [facility] [id number] [place] [address] 90665- 7932 Jan, [facility] [id number] [place] [address] 92997- 6566 Jan, [facility] [address] 11216- 6547 Dec, Back pain M54.9 [facility] [id number] [place] [address] 85220- 0343 Dec, [facility] [id number] [place] [address] 29426- 3848 Dec, Upper respiratory tract infection, unspecified type J06.9 [facility] [id number] [place] [address] 28596- 1262 Dec, [facility] [id number] [place] [address] 37100 -4816 Dec, Acute suppurative otitis media of right ear without spontaneous rupture of tympanic membrane, recurrence not specified H66.001 and Acute nasopharyngitis J00 [facility] [id number] [place] [address] 08809- 9966 Dec, Back pain M54.9 [facility] [id number] [place] [address] 64948- 0807 Dec, Foot infection L08.9 and 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 complication E11.49 [facility] [id number] [place] [address] 79275- 4999 Nov, Cellulitis of toe of right foot L03.031 ; Polyneuropathy in diseases classified elsewhere G63 and HTN (hypertension) I10 [facility] [id number] [place] [address] 66092- 9912 Nov, [facility] [address] [place] [address] [address] [place] [address] 7625 Nov, [facility] [address] [facility] [id number] [place] [address]- 3873 Nov, Back pain M54.9 [facility] [place] [facility] [address] [facility] [id number] [place] [address]- 5433 Nov, Shortness of breath R06.02 [facility] [place] [facility] [address] [facility] [id number] [place] [address]- 8478 Nov, [facility] [place] [facility] [address] [id number] [place] [address]- 3198 Oct, [facility] [place] [facility] [address] [facility] [id number] [place] [address] 1955 Oct, [facility] [address] [place] [id number] [place] [address]- 7781 Oct, [facility] [place] [facility] [address] [facility] [id number] [place] [address]- 4391 Oct, [facility] [place] [facility] [address] [place] [id number] [place] [address]- 8435 Oct, [facility] [place] [facility] [address] [place] [id number] [place] [address]- 1765 Oct, Back pain M54.9 [facility] [place] [facility] [address] [place] [address]- 7468 Oct, Back pain M54.9 [facility] [place] [facility] [address] [facility] [id number] [place] [address]- 5781 Oct, [facility] [place] [facility] [address] [facility] [id number] [place] [address]- 5081 September, [facility] [place] [facility] [address] [facility] [id number] [place] [address]- 3482 September, [facility] [place] [facility] [address] [place] [id number] [place] [address]- 0919 September, [facility] [place] [facility] [address] [address]- 4189 September, 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 complication E11.49 and Hypotension, unspecified hypotension type I95.9 [facility] [address] [address]- 8511 September, [facility] [id number] [place] [address] 24658- 7871 September, [facility] [id number] [place] [address] 60716- 3740 September, Back pain M54.9 [facility] [id number] [place] [address] 14077- 0071 Aug, [facility] [id number] [place] [address] 40814- 7254 Aug, Acute cystitis with hematuria N30.01 ; Ulcer of right foot, unspecified ulcer stage L97.519 ; HTN (hypertension) I10 ; COPD (chronic obstructive pulmonary disease) J44.9 and DM neuro manif type II E11.49 [facility] [id number] [place] [address] 11880- 4527 Aug, Back pain M54.9 [facility] [id number] [place] [address] 93690- 9812 Jul, [facility] [address] [id number] [place] [address] 27137- 1909 Jul, Back pain M54.9 [facility] [address] [address]- 3931 Jul, [facility] [id number] [place] [address] 86757- 6157 Jul, DM neuro manif type II E11.49 and Ulcer of right foot, unspecified ulcer stage L97.519 [facility] [address] [place] [address] 24203- 0932 Jun, [facility] [id number] [place] [address] 12974- 8915 15 Jun, 2017 [facility] [address] 40154- 0691 May, 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 complication E11.49 ; GERD (gastroesophageal reflux disease) K21.9 and PAD ( peripheral artery disease) I73.9 [facility] [address] 56231- 8371 May, Decubital ulcer L89.90 ; Diabetes E11.9 and GERD ( gastroesophageal reflux disease) K21.9 [facility] [address] 27270- 4357 May, [facility] [address] 89116- 6872 Apr, [facility] [address] 22067- 1332 Mar, [facility] [id number] [place] [address] 53161- 3103 Mar, [facility] [address] 31767- 7891 Feb, [facility] [address] [place] [id number] [place] [address] 65023- 3050 Feb, [facility] [id number] [place] [address] 68583- 2994 Jan, [facility] [address] [id number] [place] [address] 30349- 4158 Jan, HTN (hypertension) I10 [facility] [address] [id number] [place] [address] 47547- 7475 Jan, [facility] [id number] [place] [address] 16241- 9592 Dec, Back pain M54.9 [facility] [address] 17340- 7395 Dec, Back pain M54.9 [facility] [address] [address] Dec, Encounter for immunization Z23 and Puncture wound of right foot, initial encounter S91.331A [facility] [address], [place] [address]- 0566 Dec, [facility] [address] [id number] [place] [address] 64153- 0570 Nov, [facility] [id number] [place] [address] 90598- 4766 Nov, COPD (chronic obstructive pulmonary disease) J44.9 [facility] [id number] [place] [address] 13314- 8004 Nov, [facility] [address] [id number] [place] [address] 98189- 6316 Oct, [facility] [id number] [place] [address] 65010- 9626 Oct, [facility] [id number] [place] [address] 63266- 0308 September, Onychomycosis B35.1 and DM neuro manif type II E11.49 [facility] [address], [place] [address]- 9521 September, [facility] [id number] [place] [address] 55029- 7019 Aug, [facility] [address] [place] [address] 00262- 1217 29 Jul, 2016 Sinusitis, unspecified chronicity, unspecified location J32.9 and Cough R05 [facility] [address], [place] [address]- 8612 13 Jul, 2016 Back pain M54.9 [facility] [id number] [place] [address] 53549- 1124 14 Jun, 2016 Back pain M54.9 [facility] [address] [address]- 6101 06 Jun, 2016 COPD (chronic obstructive pulmonary disease) J44.9 [facility] [address] [address]- 7893 May, [facility] [id number] [place] [address] 92253- 7055 May, [facility] [address], [place] [address]- 0053 May, Back pain M54.9 [facility] [address] [place] [id number] [place] [address] 89066- 0417 May, [facility] [id number] [address]- 1862 May, [facility] [address] [place] [address] 58873- 6442 May, Diabetes E11.9 [facility] [address], [place] [address]- 4182 11 May, 2016 Diabetes E11.9 ; GERD [...] Need for hepatitis C screening test Z11.59 [facility] [address], [place] [address]- 0726 May, HTN (hypertension) I10 [facility] [address] [address]- 6202 Apr, [facility] [address], [place] [address]- 7903 Apr, [facility] [address], [place] [address]- 9643 Apr, [facility] [address] [id number] [place] [address] 08532- 3191 Apr, [facility] [id number] [place] [address] 83756- 3864 Apr, [facility] [id number] [place] [address] 17825- 1579 Mar, [facility] [id number] [place] [address] 09192- 4377 Mar, [facility] [id number] [place] [address] 79042- 2017 Mar, [facility] [id number] [place] [address] 00735- 0955 Mar, [facility] [address] [id number] [place] [address] 35286- 3833 Mar, Dental examination Z01.20 [facility] [address] [place] [address] 17864- 2294 Feb, [facility] [id number] [place] [address] 01770- 2205 Feb, [facility] [address] [place] [address] 60919- 2853 Feb, Back pain M54.9 [facility] [id number] [place] [address] 81554- 9143 Jan, [facility] [id number] [place] [address] 88015- 9398 Jan, [facility] [address] [place] [address] 35319- 8038 Dec, Diabetes E11.9 ; GERD (gastroesophageal reflux disease) K21.9 ; ED (erectile dysfunction) N52.9 ; HTN (hypertension) I10 ; Insomnia G47.00 ; COPD (chronic obstructive pulmonary disease) J44.9 ; Neuropathy G62.9 and Bipolar depression F31.30 [facility] [id number] [address]- 4471 Dec, 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 complication E11.49 and Onychomycosis B35.1 [facility] [address] [address]- 8490 Dec, [facility] [id number] [place] [address] 26185- 1185 Dec, [facility] [id number] [place] [address] 10988- 4334 Dec, [facility] [id number] [place] [address] 36073- 1256 Dec, [facility] [id number] [place] [address] 75691- 9571 Nov, [facility] [id number] [place] [address] 02020- 5976 Nov, [facility] [id number] [place] [address] 20353- 2981 Oct, [facility] [id number] [address]- 9438 Oct, [facility] [address], [place] [address]- 4484 Oct, Back pain M54.9 [facility] [address], [place] [address]- 1795 Oct, [facility] [address] [address]- 0351 Oct, [facility] [id number] [address]- 2452 Oct, [facility] [address], [place] [address]- 8937 Oct, HTN (hypertension) I10 [facility] [address], [place] [address]- 9250 Oct, Back pain M54.9 [facility] [id number] [place] [address] 32895- 5418 Oct, Chronic pain syndrome G89.4 [facility] [id number] [place] [address] 81537- 1372 September, Back pain M54.9 [facility] [id number] [place] [address] 87917- 5427 September, HTN (hypertension) I10 [place] [id number] [place] [address] 54921- 2354 Aug, Porokeratosis Q82.8 ; Onychomycosis B35.1 and 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 complication E11.49 [place] [id number] [place] [address] 08325- 9418 Aug, GERD (gastroesophageal reflux disease) K21.9 ; Diabetes E11.9 ; HTN (hypertension) I10 ; Insomnia G47.00 ; Restless legs syndrome G25.81 ; COPD (chronic obstructive pulmonary disease) J44.9 ; Back pain M54.9 and Bipolar 1 disorder F31.9 [facility] [address], [place] [address]- 1471 Aug, [facility] [id number] [place] [address] 18006- 2866 Aug, [facility] [id number] [place] [address] 82303- 7851 Aug, [facility] [id number] [place] [address] 94859- 9056 Aug, [facility] [address] [place] [address] 19609- 1954 Jul, [facility] [id number] [place] [address] 84055- 6388 31 Jul, 2015 [facility] [address], [place] [address]- 8819 30 Jul, 2015 [facility] [id number] [place] [address] 28717- 0334 16 Jul, 2015 [facility] [id number] [place] [address] 45708- 6501 Jul, [facility] [id number] [place] [address] 16146- 3443 Jul, [facility] [id number] [place] [address] 65530- 9928 Jun, Decubital ulcer L89.90 ; Diabetes E11.9 ; Back pain M54.9 ; HTN (hypertension) I10 and COPD (chronic obstructive pulmonary disease) J44.9 [facility] [id number] [place] [address] 49954- 2351 Jun, [facility] [id number] [place] [address] 50326- 0878 Jun, [facility] [id number] [place] [address] 57172- 8065 Jun, [facility] [address] [place] [address] 91080- 8992 Jun, [facility] [address] [place] [address] 66538- 0410 Jun, Diabetes E11.9 ; Insomnia G47.00 ; Decubital ulcer L89.90 ; GERD (gastroesophageal reflux disease) K21.9 ; Back pain M54.9 ; Superficial fungus infection of skin B36.9 and HTN (hypertension) I10 [address] [id number] [address] Jun, Dental examination Z01.20 [facility] [address], [place] [address]- 5504 May, [place] [address], [place] [address]- 6190 May, [facility] [address], [place] [address]- 9414 May, [facility] [address], [place] [address]- 0951 May, Diabetes E11.9 ; HTN (hypertension) I10 and Decubital ulcer L89.90 [facility] [address], [place] [address]- 7129 May, HTN (hypertension) I10 ; Decubital ulcer L89.90 and Diabetes E11.9 [place] [id number] [place] [address] 76883- 5922 30 Apr, 2015 Diabetes E11.9 ; GERD (gastroesophageal reflux disease) K21.9 ; Back pain M54.9 ; HTN (hypertension) I10 ; Restless legs syndrome G25.81 and Decubital ulcer L89.90 [place] [address] [place] [address] 99846- 8054 17 Apr, 2015 [place] [id number] [place] [address] 66123- 0834 Apr, Diabetes E11.9 ; HTN (hypertension) I10 ; Restless legs syndrome G25.81 ; GERD (gastroesophageal reflux disease) K21.9 and COPD ( chronic obstructive pulmonary disease) J44.9 [place] [address], [place] [address]- 9110 Mar, [place] [address], [place] [address]- 1282 Mar, [place] [id number] [place] [address] 63624- 2195 Mar, Diabetes E11.9 ; Abscess L02.91 and Restless legs syndrome G25.81 [place] [address] [place] [address] 03144- 0194 Mar, [place] [id number] [place] [address] 67001- 0216 Feb, GERD (gastroesophageal reflux disease) K21.9 ; Back pain M54.9 ; ED (erectile dysfunction) N52.9 ; Diabetes E11.9 ; HTN (hypertension) I10 and Insomnia G47.00 [place] [id number] [place] [address] 54586- 4304 Feb, [place] [address] 39179- 2719 Feb, [place] [id number] [place] [address] 11164- 3760 Jan, [place] [id number] [place] [address] 62712- 9598 Jan, Diabetes 250.00 ; Nondependent cannabis abuse, continuous 305.21 ; Cough 786.2 ; Schizoaffective disorder, unspecified 295.70 ; Sciatica 724.3 ; Other, mixed, or unspecified nondependent drug abuse, unspecified 305.90 ; Chronic pain 338.29 ; GERD (gastroesophageal reflux disease) 530.81 and HTN (hypertension) 401.9 [place] [id number] [place] [address] 70804- 2373 Jan, [place] [id number] [place] [address] 56370- 7225 Jan, [place] [id number] [place] [address] 34198- 4317 Jan, Chronic pain associated with significant psychosocial dysfunction 338.4 ; Diabetes mellitus without mention of complication, type I [ juvenile type], uncontrolled 250.03 ; Benign essential hypertension 401.1 ; Schizoaffective disorder, unspecified 295.70 ; Wheezing 786.07 ; Ear ache 388.70 ; Cough 786.2 ; Sciatica 724.3 and Foot pain, bilateral 729.5 [place] [id number] [place] [address] 29235- 9148 Dec, [place] [address], [place] [address]- 4549 Dec, [facility] [address], [place] [address]- 3395 Dec, [facility] [address], [place] [address]- 4082 Dec, [facility] [address], [place] [address]- 6684 Dec, [facility] [address], [place] [address]- 9777 Nov, Elevated liver enzymes 790.5 [facility] [id number] [place] [address] Nov, [facility] [address], [place] [address] Nov, [facility] [id number] [place] [address] Nov, [facility] [address] [address] Nov, Benign essential hypertension 401.1 ; Diabetes mellitus without mention of complication, type I [juvenile type], uncontrolled 250.03 and Nondependent cannabis abuse, continuous 305.21 [facility] [address], [place] [address] Oct, Cellulitis 682.9 and Benign essential hypertension 401.1 [facility] [address], [place] [address] Oct, [facility] [address], [place] [address] September, [facility] [address], [place] [address] September, [facility] [address] [address] Aug, [facility] [place] [facility] [address] [id number] [place] [address] 28 Aug, 2014 [facility] [place] [facility] [address] [id number] [place] [address] 14 Aug, 2014 [facility] [place] [facility] [address] [id number] [place] [address] 13 Aug, 2014 [facility] [place] [facility] [address] [id number] [place] [address] 25 Jul, 2014 [facility] [place] [facility] [address] [id number] [place] [address] Jul, [facility] [place] [facility] [address] [id number] [place] [address] Jul, [facility] [place] [facility] [address] [facility] [id number] [place] [address] Jul, [facility] [place] [facility] [address] [id number] [place] [address] Jul, [facility] [place] [facility] [address] [id number] [place] [address] Jul, [facility] [place] [facility] [address] [id number] [place] [address] Jun, [facility] [place] [facility] [address] [id number] [place] [address] Jun, [facility] [place] [facility] [address] [id number] [address] Jun, [facility] [place] [facility] [address] [id number] [place] [address] Jun, [facility] [place] [facility] [address] [id number] [place] [address] Jun, [facility] [place] [facility] [address] [id number] [place] [address] May, [facility] [place] [facility] [address] [id number] [address] May, [facility] [place] [facility] [address] [id number] [place] [address] May, [facility] [place] [facility] [address] [id number] [place] [address] May, [facility] [place] [facility] [address] [id number] [place] [address] May, [facility] [place] [facility] [address] [id number] [place] [address] May, [facility] [place] [facility] [address] [id number] [place] [address] May, [facility] [place] [facility] [address] [id number] [place] [address] May, [facility] [place] [facility] [address] [id number] [place] [address] Apr, [facility] [place] [facility] [address] [id number] [place] [address] Apr, [facility] [place] [facility] [address] [id number] [place] [address] Apr, [facility] [place] [facility] [address] [id number] [place] [address] Apr, [facility] [place] [facility] [address] [id number], [place] [address] Mar, [facility] [place] [facility] [address] [id number] [place] [address] Mar, [facility] [place] [facility] [address] [id number] [place] [address] Mar, [facility] [place] [facility] [address] [id number] [place] [address] Mar, [facility] [place] [facility] [address] [id number] [place] [address] Feb, [facility] [place] [facility] [address] [id number] [place] [address] Feb, [facility] [place] [facility] [address] [id number] [place] [address] Feb, [facility] [place] [facility] [address] [id number] [place] [address] Feb, [facility] [place] [facility] [address] [id number] [place] [address] Feb, [facility] [place] [facility] [address] [id number] [place] [address] Feb, [facility] [place] [facility] [address] [id number] [place] [address] Jan, [facility] [place] [facility] [address] [id number] [place] [address] Jan, [facility] [place] [facility] [address] [id number] [place] [address] Jan, [facility] [place] [facility] [address] [id number] [place] [address] Jan, [facility] [place] [facility] [address] [id number] [place] [address] Dec, [facility] [place] [facility] [address] [id number] [place] [address] Dec, [facility] [place] [facility] [address] [id number] [place] [address] Dec, [facility] [place] [facility] [address] [id number] [place] [address] 39[address] Dec, [facility] [place] [facility] [address] [id number] [place] [address] Dec, [facility] [place] [facility] [address] [id number] [place] [address]- [address] Dec, [facility] [place] [facility] [address] [id number] [place] [address] Oct, [facility] [place] [facility] [address] [id number] [place] [address] Oct, [facility] [place] [facility] [address] [id number] [place] [address] September, [facility] [place] [facility] [address] [id number] [place] [address]- [address] September, [facility] [place] [facility] [address] [id number] [place] [address] September, [facility] [place] [facility] [address] [id number] [place] [address] September, [facility] [place] [facility] [address] [id number] [place] [address] September, [facility] [place] [facility] [address] [id number] [place] [address] September, [facility] [place] [facility] [address] [id number] [place] [address] Aug, [facility] [place] [facility] [address] [id number] [place] [address] Aug, [facility] [place] [facility] [address] [id number] [place] [address] Aug, [facility] [place] [facility] [address] [id number] [place] [address] Aug, [facility] [place] [facility] [address] [id number], [place] [address] Jul, [facility] [place] [facility] [address] [id number] [place] [address] Jul, [facility] [place] [facility] [address] [id number] [place] [address] Jun, [facility] [place] [facility] [address] [id number] [place] [address] Jun, [facility] [place] [facility] [address] [id number] [place] [address] May, [facility] [address] [id number] [place] [address] May, [facility] [place] [facility] [address] [id number] [place] [address] Jan, [facility] [address] [id number] [place] [address]- [address] Dec, [facility] [place] [facility] [address] [id number] [place] [address] Jun, [facility] [address] [id number] [place] [address]- [address] May, [facility] [address] [id number] [place] [address] Nov, [facility] [address] [id number] [place] [address] September, [facility] [address] [id number] [place] [address]- [address] Aug, [facility] [address] [id number] [place] [address]- [address]160 Aug, [facility] [address] [id number] [place] [address] Aug, [facility] [address] [id number] [place] [address] Aug, [facility] [address] [id number] [place] [address]- [address] Nov, [facility] [place] [facility] [address] [id number] [place] [address]- [address] Oct, [facility] [place] [facility] [address] [id number] [place] [address] Jul, [facility] [place] [facility] [address] [id number] [place] [address] Feb, [facility] [address] [facility] [id number], [place] [address] Feb, [facility] [address] [id number], [place] [address] Apr, [facility] [address] [id number], [place] [address] Apr, [facility] [address] [id number], [place] [address] Feb, [facility] [address] [id number], [place] [address] Feb, [facility] [address] [id number], [place] [address] Jul, IMMUNIZATIONS No Known Immunizations SOCIAL HISTORY Never Assessed REASON FOR VISIT Controlled Med Refill 03/05 PLAN OF CARE VITAL SIGNS MEDICATIONS Unknown [...]
--- OUTSIDE RECORDS SUMMARY | 2018-09-15 22:24 | XMS REPORT ---
Author Author TESHA STACY Organization [facility] Address [address] [place] [address] Care Team Providers Care Manager Costing Name Role Phone TESHA STACY Unavailable PROBLEMS Type Condition ICD9-CM Code EXX92-HX Code Onset Dates Condition Status SNOMED Code Problem HTN (hypertension) I10 Active 59933128 Problem Restless legs syndrome G25.81 Active 459581066 Problem GERD (gastroesophageal reflux disease) K21.9 Active 445783531 Problem Chronic hepatitis C without hepatic coma B18.2 Active 773615798 Problem ED (erectile dysfunction) N52.9 Active 813936342 Problem PAD (peripheral artery disease) I73.9 Active 893569771 Problem Ulcer of right foot, unspecified ulcer stage L97.519 Active 99799550 Problem 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 242804353 Problem COPD (chronic obstructive pulmonary disease) J44.9 Active 86221891 Problem DM neuro manif type II E11.49 Active 37106532 Problem Sinusitis, unspecified chronicity, unspecified location J32.9 Active 30929569 ALLERGIES No Information ENCOUNTERS Encounter Location Date Diagnosis [facility] [id number] [address] Mar, [facility] [address] [address] 0561 Mar, Back pain M54.9 [facility] [address] [address] 7896 Mar, [facility] [address] [address] 2[address] Mar, [facility] [id number] [address] 8079 Mar, Polyneuropathy in diseases classified elsewhere G63 [facility] [id number] [place] [address] 56790- 7731 Feb, Back pain M54.9 [facility] [id number] [place] [address] 15750- 3168 Jan, Back pain M54.9 [facility] [id number] [place] [address] 76230- 2340 Jan, [facility] [id number] [place] [address] 40200- 5823 Jan, [facility] [id number] [place] [address] 00329- 5934 Dec, Back pain M54.9 [facility] [id number] [place] [address] 53244- 1027 Dec, [facility] [id number] [place] [address] 32575- 1763 Dec, Upper respiratory tract infection, unspecified type J06.9 [facility] [id number] [place] [address] 30298- 9401 Dec, [facility] [id number] [place] [address] 50453 -5829 Dec, Acute suppurative otitis media of right ear without spontaneous rupture of tympanic membrane, recurrence not specified H66.001 and Acute nasopharyngitis J00 [facility] [id number] [place] [address] 75690- 2520 Dec, Back pain M54.9 [facility] [id number] [place] [address] 16834- 2897 Dec, Foot infection L08.9 and 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 complication E11.49 [place] [id number] [place] [address] 28173- 0520 Nov, Cellulitis of toe of right foot L03.031 ; Polyneuropathy in diseases classified elsewhere G63 and HTN (hypertension) I10 [facility] [id number] [place] [address] 0229 Nov, [facility] [address] [facility] [id number] [place] [address]- 3062 Nov, [facility] [address] [facility] [id number] [place] [address]- 2182 Nov, Back pain M54.9 [facility] [address] [facility] [id number] [place] [address]- 9720 Nov, Shortness of breath R06.02 [facility] [address] [id number] [place] [address]- 2632 Nov, [facility] [address] [facility] [id number] [place] [address]- 2804 Oct, [facility] [id number] [place] [address]- 2563 Oct, [facility] [id number] [place] [address]- 7915 Oct, [facility] [address] [facility] [id number] [place] [address]- 6149 Oct, [facility] [address] [facility] [id number] [address]- 7596 Oct, [facility] [address] [facility] [id number] [place] [address]- 5910 Oct, Back pain M54.9 [facility] [place] [facility] [address] [facility] [id number] [address]- 6538 Oct, Back pain M54.9 [facility] [place] [facility] [address] [facility] [id number] [place] [address]- 9742 Oct, [facility] [place] [facility] [address] [facility] [id number] [place] [address]- 9164 September, [facility] [id number] [address]- 0057 September, [facility] [id number] [address]- 2936 September, [facility] [id number] [place] [address] 37528- 4125 September, 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 complication E11.49 and Hypotension, unspecified hypotension type I95.9 [facility] [id number] [place] [address] 32310- 6940 September, [facility] [id number] [place] [address] 54765- 3575 September, [place] [id number] [place] [address] 80530- 1452 September, Back pain M54.9 [place] [id number] [place] [address] 99506- 4036 Aug, [place] [id number] [place] [address] 26102- 3089 Aug, Acute cystitis with hematuria N30.01 ; Ulcer of right foot, unspecified ulcer stage L97.519 ; HTN (hypertension) I10 ; COPD (chronic obstructive pulmonary disease) J44.9 and DM neuro manif type II E11.49 [place] [id number] [place] [address] 79819- 8515 Aug, Back pain M54.9 [facility] [id number] [place] [address] 69399- 4661 Jul, [facility] [id number] [place] [address] 46433- 5944 Jul, Back pain M54.9 [facility] [id number] [place] [address] 19685- 8414 Jul, [facility] [id number] [place] [address] 61234- 0413 Jul, DM neuro manif type II E11.49 and Ulcer of right foot, unspecified ulcer stage L97.519 [facility] [address] [address]- 5709 19 Jun, 2017 [facility] [id number] [place] [address] 51373- 9370 15 Jun, 2017 [facility] [id number] [place] [address] 98150- 3971 May, 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 complication E11.49 ; GERD (gastroesophageal reflux disease) K21.9 and PAD ( peripheral artery disease) I73.9 [facility] [id number] [place] [address] 88651- 4827 17 May, 2017 Decubital ulcer L89.90 ; Diabetes E11.9 and GERD ( gastroesophageal reflux disease) K21.9 [facility] [id number] [place] [address] 49864- 4536 May, [facility] [id number] [place] [address] 29560- 9389 Apr, [facility] [id number] [place] [address] 35396- 5902 Mar, [facility] [id number] [place] [address] 97953- 3032 Mar, [facility] [id number] [place] [address] 43767- 6777 Feb, [facility] [id number] [place] [address] 78417- 1587 Feb, [facility] [id number] [place] [address] 80427- 4610 Jan, [facility] [id number] [place] [address] 48578- 0483 29 Jan, 2017 HTN (hypertension) I10 [facility] [id number] [place] [address] 88423- 6372 Jan, [facility] [id number] [place] [address] 15358- 5004 Dec, Back pain M54.9 [facility] [id number] [place] [address] 92494- 9706 Dec, Back pain M54.9 [facility] [id number] [place] [address] 58971 -7437 Dec, Encounter for immunization Z23 and Puncture wound of right foot, initial encounter S91.331A [facility] [id number] [place] [address] 88416- 1452 Dec, [facility] [id number] [place] [address] 32332- 1675 Nov, [facility] [id number] [place] [address] 28898- 1612 Nov, COPD (chronic obstructive pulmonary disease) J44.9 [facility] [id number] [place] [address] 58743- 7922 Nov, [facility] [id number] [place] [address] 05349- 3716 Oct, [facility] [id number] [place] [address] 92963- 9351 Oct, [facility] [id number] [place] [address] 20963- 5597 September, Onychomycosis B35.1 and DM neuro manif type II E11.49 [facility] [id number] [place] [address] 25063- 6624 September, [facility] [id number] [place] [address] 21829- 2470 Aug, [facility] [id number] [place] [address] 67994- 7933 Jul, Sinusitis, unspecified chronicity, unspecified location J32.9 and Cough R05 [facility] [id number] [place] [address] 24690- 2577 Jul, Back pain M54.9 [facility] [id number] [place] [address] 63606- 9678 14 Jun, 2016 Back pain M54.9 [facility] [id number] [place] [address] 51187- 0112 06 Jun, 2016 COPD (chronic obstructive pulmonary disease) J44.9 [facility] [id number] [place] [address] 29725- 4759 May, [facility] [id number] [place] [address] 46523- 1315 May, [facility] [id number] [place] [address] 02411- 2040 May, Back pain M54.9 [facility] [id number] [place] [address] 02377- 2870 May, [facility] [id number] [place] [address] 54703- 2621 May, [facility] [id number] [place] [address] 59529- 8555 May, Diabetes E11.9 [facility] [id number] [place] [address] 82625- 9360 May, Diabetes E11.9 ; GERD (gastroesophageal reflux [...] Need for hepatitis C screening test Z11.59 [facility] [id number] [place] [address] 99596- 7505 May, HTN (hypertension) I10 [place] [id number] [place] [address] 98004- 2843 Apr, [facility] [address] [address]- 4369 Apr, [facility] [id number] [place] [address] 35052- 8305 Apr, [facility] [id number] [place] [address] 45400- 7894 Apr, [facility] [id number] [place] [address] 14117- 1516 Apr, [facility] [id number] [place] [address] 32269- 5473 Mar, [facility] [id number] [place] [address] 57712- 0852 Mar, [facility] [id number] [place] [address] 88589- 4833 Mar, [facility] [id number] [place] [address] 95885- 3204 Mar, [facility] [id number] [place] [address] 00481- 1607 Mar, Dental examination Z01.20 [facility] [id number] [place] [address] 31804- 2222 Feb, [facility] [id number] [place] [address] 18028- 0606 Feb, [facility] [id number] [place] [address] 81570- 8860 Feb, Back pain M54.9 [facility] [id number] [place] [address] 17584- 2301 Jan, [facility] [id number] [place] [address] 39566- 2925 Jan, [facility] [address] [address]- 1291 Dec, Diabetes E11.9 ; GERD (gastroesophageal reflux disease) K21.9 ; ED (erectile dysfunction) N52.9 ; HTN (hypertension) I10 ; Insomnia G47.00 ; COPD (chronic obstructive pulmonary disease) J44.9 ; Neuropathy G62.9 and Bipolar depression F31.30 [facility] [id number] [place] [address] 32347- 0576 Dec, 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 complication E11.49 and Onychomycosis B35.1 [facility] [id number] [place] [address] 08110- 4515 Dec, [facility] [id number] [place] [address] 73250- 4205 Dec, [facility] [id number] [place] [address] 27542- 3117 Dec, [facility] [id number] [place] [address] 04689- 8522 Dec, [facility] [id number] [place] [address] 39620- 0774 Nov, [facility] [id number] [place] [address] 60159- 5395 Nov, [facility] [id number] [place] [address] 47134- 1961 Oct, [facility] [id number] [place] [address] 23638- 6603 Oct, [facility] [id number] [place] [address] 63340- 1297 Oct, Back pain M54.9 [facility] [id number] [place] [address] 26125- 5334 Oct, [facility] [id number] [place] [address] 12418- 2420 Oct, [facility] [id number] [place] [address] 40381- 5258 Oct, [facility] [id number] [place] [address] 03832- 2247 Oct, HTN (hypertension) I10 [facility] [id number] [place] [address] 76455- 2075 Oct, Back pain M54.9 [facility] [id number] [place] [address] 58673- 6197 Oct, Chronic pain syndrome G89.4 [facility] [id number] [place] [address] 70609- 2703 September, Back pain M54.9 [place] [address] 92004- 6875 September, HTN (hypertension) I10 [place] [id number] [place] [address] 69058- 9563 Aug, Porokeratosis Q82.8 ; Onychomycosis B35.1 and 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 complication E11.49 [place] [id number] [place] [address] 14601- 2559 Aug, GERD (gastroesophageal reflux disease) K21.9 ; Diabetes E11.9 ; HTN (hypertension) I10 ; Insomnia G47.00 ; Restless legs syndrome G25.81 ; COPD (chronic obstructive pulmonary disease) J44.9 ; Back pain M54.9 and Bipolar 1 disorder F31.9 [place] [id number] [place] [address] 46218- 9513 Aug, [place] [id number] [place] [address] 50570- 2065 Aug, [facility] [id number] [place] [address] 25284- 9040 Aug, [facility] [id number] [place] [address] 06734- 4436 Aug, [place] [id number] [place] [address] 72062- 9116 31 Jul, 2015 [facility] [address] [address]- 8787 31 Jul, 2015 [facility] [address] [address]- 1609 30 Jul, 2015 [facility] [address] [address]- 6232 16 Jul, 2015 [facility] [id number] [place] [address] 35799- 9727 15 Jul, 2015 [facility] [address] [address]- 0899 Jul, [facility] [address] [address]- 8402 17 Jun, 2015 Decubital ulcer L89.90 ; Diabetes E11.9 ; Back pain M54.9 ; HTN (hypertension) I10 and COPD (chronic obstructive pulmonary disease) J44.9 [facility] [address] [address]- 2253 10 Jun, 2015 [facility] [id number] [place] [address] 92805- 4661 Jun, [facility] [address] [address]- 0068 Jun, [facility] [address] [address]- 8596 Jun, [facility] [address] [address]- 2378 03 Jun, 2015 Diabetes E11.9 ; Insomnia G47.00 ; Decubital ulcer L89.90 ; GERD (gastroesophageal reflux disease) K21.9 ; Back pain M54.9 ; Superficial fungus infection of skin B36.9 and HTN (hypertension) I10 [address] [id number] [id number] 02 Jun, 2015 Dental examination Z01.20 [facility] [address] [address]- 9919 May, [facility] [id number] [place] [address] 44135- 8984 May, [facility] [id number] [place] [address] 40223- 0955 May, [facility] [id number] [place] [address] 88281- 2927 May, Diabetes E11.9 ; HTN (hypertension) I10 and Decubital ulcer L89.90 [place] [id number] [place] [address] 51176- 5349 May, HTN (hypertension) I10 ; Decubital ulcer L89.90 and Diabetes E11.9 [place] [id number] [place] [address] 90508- 4172 Apr, Diabetes E11.9 ; GERD (gastroesophageal reflux disease) K21.9 ; Back pain M54.9 ; HTN (hypertension) I10 ; Restless legs syndrome G25.81 and Decubital ulcer L89.90 [facility] [id number] [place] [address] 18658- 6898 Apr, [facility] [id number] [place] [address] 44338- 3499 Apr, Diabetes E11.9 ; HTN (hypertension) I10 ; Restless legs syndrome G25.81 ; GERD (gastroesophageal reflux disease) K21.9 and COPD ( chronic obstructive pulmonary disease) J44.9 [facility] [address] [address]- 8758 Mar, [facility] [id number] [place] [address] 22200- 1870 Mar, [facility] [address] [address]- 8711 Mar, Diabetes E11.9 ; Abscess L02.91 and Restless legs syndrome G25.81 [place] [id number] [place] [address] 80397- 6314 Mar, [place] [address] 06113- 5999 Feb, GERD (gastroesophageal reflux disease) K21.9 ; Back pain M54.9 ; ED (erectile dysfunction) N52.9 ; Diabetes E11.9 ; HTN (hypertension) I10 and Insomnia G47.00 [place] [address] 34322- 9197 Feb, [place] [address] 64575- 8130 Feb, [place] [address] 41042- 1092 Jan, [place] [address] 65609- 4789 Jan, Diabetes 250.00 ; Nondependent cannabis abuse, continuous 305.21 ; Cough 786.2 ; Schizoaffective disorder, unspecified 295.70 ; Sciatica 724.3 ; Other, mixed, or unspecified nondependent drug abuse, unspecified 305.90 ; Chronic pain 338.29 ; GERD (gastroesophageal reflux disease) 530.81 and HTN (hypertension) 401.9 [place] [id number] [place] [address] 93595- 1107 Jan, [place] [address] 36368- 0080 Jan, [place] [id number] [place] [address] 87989- 0839 Jan, Chronic pain associated with significant psychosocial dysfunction 338.4 ; Diabetes mellitus without mention of complication, type I [ juvenile type], uncontrolled 250.03 ; Benign essential hypertension 401.1 ; Schizoaffective disorder, unspecified 295.70 ; Wheezing 786.07 ; Ear ache 388.70 ; Cough 786.2 ; Sciatica 724.3 and Foot pain, bilateral 729.[address] [id number] [address]- 0834 Dec, [facility] [address] [address]- [address] Dec, [facility] [id number] [address] Dec, [facility] [id number] [address] Dec, [facility] [id number] [address] Dec, [facility] [id number] [place] [address] Nov, Elevated liver enzymes 790.5 [facility] [id number] [address] Nov, [facility] [id number] [address] Nov, [facility] [id number] [address] Nov, [facility] [id number] [address] Nov, Benign essential hypertension 401.1 ; Diabetes mellitus without mention of complication, type I [juvenile type], uncontrolled 250.03 and Nondependent cannabis abuse, continuous 305.21 [facility] [id number] [address] Oct, Cellulitis 682.9 and Benign essential hypertension 401.1 [facility] [id number] [address] Oct, [facility] [id number] [address] September, [facility] [id number] [address] September, [facility] [place] [facility] [address] [id number] [place] [address] Aug, [facility] [place] [facility] [address] [id number] [place] [address] Aug, [facility] [place] [facility] [address] [id number] [place] [address] Aug, [facility] [place] [facility] [address] [id number] [place] [address] Aug, [facility] [place] [facility] [address] [id number] [place] [address] Jul, [facility] [place] [facility] [address] [id number] [place] [address] Jul, [facility] [place] [facility] [address] [id number] [place] [address] Jul, [facility] [place] [facility] [address] [id number] [place] [address] Jul, [facility] [place] [facility] [address] [id number] [place] [address] Jul, [facility] [place] [facility] [address] [id number] [place] [address] Jul, [facility] [place] [facility] [address] [id number] [place] [address] Jun, [facility] [place] [facility] [address] [id number] [place] [address] Jun, [facility] [place] [facility] [address] [id number] [place] [address] Jun, [facility] [place] [facility] [address] [id number] [place] [address] Jun, [facility] [place] [facility] [address] [id number] [place] [address] Jun, [facility] [place] [facility] [address] [id number] [place] [address] May, [facility] [address] [id number] [place] [address] May, [facility] [place] [facility] [address] [id number] [place] [address]472 May, [facility] [place] [facility] [address] [id number] [place] [address] May, [facility] [place] [facility] [address] [id number] [place] [address] May, [facility] [place] [facility] [address] [id number] [place] [address] May, [facility] [place] [facility] [address] [id number] [place] [address] May, [facility] [address] [facility] [id number] [place] [address] May, [facility] [place] [facility] [address] [id number] [place] [address] Apr, [facility] [place] [facility] [address] [id number] [place] [address] Apr, [facility] [place] [facility] [address] [facility] [id number] [place] [address]658 Apr, [facility] [place] [facility] [address] [id number] [place] [address]- 1665 Apr, [facility] [place] [facility] [address] [id number] [place] [address] Mar, [facility] [place] [facility] [address] [id number] [place] [address] Mar, [facility] [place] [facility] [address] [facility] [id number] [place] [address] Mar, [facility] [place] [facility] [address] [id number] [place] [address] Mar, [facility] [place] [facility] [address] [id number] [place] [address] Feb, [facility] [place] [facility] [address] [id number] [place] [address] Feb, [facility] [place] [facility] [address] [id number] [place] [address] Feb, [facility] [place] [facility] [address] [id number] [place] [address] Feb, [facility] [place] [facility] [address] [id number] [place] [address]- [address] Feb, [facility] [place] [facility] [address] [id number] [place] [address] Feb, [facility] [place] [facility] [address] [id number] [place] [address] Jan, [facility] [place] [facility] [address] [id number] [place] [address] 4814 Jan, [facility] [place] [facility] [address] [id number] [place] [address] Jan, [facility] [place] [facility] [address] [id number] [place] [address] Jan, [facility] [place] [facility] [address] [id number] [place] [address]- 2865 Dec, [facility] [place] [facility] [address] [id number] [place] [address]- [address]168 Dec, [facility] [place] [facility] [address] [id number] [place] [address]- [address] Dec, [facility] [place] [facility] [address] [id number] [place] [address]- 120[address] Dec, [facility] [place] [facility] [address] [id number] [place] [address] 27[address] Dec, [facility] [place] [facility] [address] [id number] [place] [address] Dec, [facility] [place] [facility] [address] [id number] [place] [address] Oct, [facility] [place] [facility] [address] [id number] [place] [address]- 7987 Oct, [facility] [place] [facility] [address] [id number] [place] [address] September, [facility] [place] [facility] [address] [id number] [place] [address]- 9346 September, [facility] [place] [facility] [address] [id number] [place] [address]- 5491 September, [facility] [place] [facility] [address] [id number] [place] [address]- 377[address] September, [facility] [place] [facility] [address] [id number] [place] [address] September, [facility] [place] [facility] [address] [id number] [place] [address]- 6942 September, [facility] [place] [facility] [address] [id number] [place] [address]- [address] Aug, [facility] [place] [facility] [address] [id number] [place] [address]- 2565 Aug, [facility] [place] [facility] [address] [id number] [place] [address]- 1781 Aug, [facility] [place] [facility] [address] [id number] [place] [address] Aug, [facility] [place] [facility] [address] [id number] [place] [address] 34[address] Jul, [facility] [place] [facility] [address] [id number] [place] [address]240 Jul, [facility] [place] [facility] [address] [id number] [place] [address]- [address] 24 Jun, 2013 [facility] [place] [facility] [address] [id number] [place] [address] 8613 Jun, [facility] [address] [id number] [place] [address]- 2034 May, [facility] [address] [id number] [place] [address]- 5749 May, [facility] [address] [id number] [place] [address]- 5561 Jan, [facility] [address] [id number] [place] [address]- 7458 Dec, [facility] [address] [id number] [place] [address]- [address]40 Jun, [facility] [address] [id number] [place] [address]- 3258 May, [facility] [address] [id number] [place] [address]- 1669 Nov, [facility] [address] [id number] [place] [address]- 9164 September, [facility] [address] [id number] [place] [address]- 3731 Aug, [facility] [address] [id number] [place] [address]- 3086 Aug, [facility] [address] [id number] [place] [address]- 1685 Aug, [facility] [address] [id number] [place] [address]- 3218 Aug, [facility] [address] [id number] [place] [address] Nov, [facility] [address] [id number] [place] [address]- 4925 Oct, [facility] [address] [id number] [place] [address]- [address]256 Jul, [facility] [address] [facility] [id number] [place] [address] Feb, [facility] [address] [id number] [place] [address] Feb, [facility] [address] [id number] [place] [address] Apr, [facility] [id number] [place] [address] Apr, [facility] [address] [id number] [place] [address] Feb, [facility] [address] [id number] [place] [address] Feb, [facility] [address] [id number] [place] [address] Jul, IMMUNIZATIONS No Known Immunizations SOCIAL HISTORY Never Assessed REASON FOR VISIT Controlled refill PLAN OF CARE VITAL SIGNS MEDICATIONS Medication Instructions Dosage Frequency Start Date End Date Duration Status Hydrocodone-Ibuprofen 7.5-200 MG Orally 3 times a day 1 tablet as needed Mar, 07 days Active RESULTS No Results PROCEDURES No [...]
--- OUTSIDE RECORDS SUMMARY | 2018-09-15 22:25 | XMS REPORT ---
Author Author YVES BLEVINS [facility] Address [address] [place] [address] Care Team Providers Care Dial Lathe Operator Name Role Phone YVES BLEVINS Unavailable PROBLEMS Type Condition ICD9-CM Code EPE62-MO Code Onset Dates Condition Status SNOMED Code Problem HTN (hypertension) I10 Active 77908496 Problem Restless legs syndrome G25.81 Active 991916098 Problem GERD (gastroesophageal reflux disease) K21.9 Active 363652757 Problem Chronic hepatitis C without hepatic coma B18.2 Active 456738309 Problem ED (erectile dysfunction) N52.9 Active 733939990 Problem PAD (peripheral artery disease) I73.9 Active 330739135 Problem Ulcer of right foot, unspecified ulcer stage L97.519 Active 06742126 Problem 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 376859983 Problem COPD (chronic obstructive pulmonary disease) J44.9 Active 15743448 Problem DM neuro manif type II E11.49 Active 30232229 Problem Sinusitis, unspecified chronicity, unspecified location J32.9 Active 29362565 ALLERGIES No Information ENCOUNTERS Encounter Location Date Diagnosis [facility] [id number] [place] [address] 73453- 3068 Mar, Polyneuropathy in diseases classified elsewhere G63 [facility] [id number] [place] [address] 80942- 3411 Feb, Back pain M54.9 [facility] [id number] [place] [address] 13434- 8615 Jan, Back pain M54.9 [facility] [id number] [place] [address] 93241- 5009 Jan, [facility] [id number] [place] [address] 81917- 8818 Jan, [facility] [id number] [place] [address] 28494- 5759 Dec, Back pain M54.9 [facility] [id number] [place] [address] 82688- 4917 Dec, [facility] [id number] [place] [address] 29776- 3344 Dec, Upper respiratory tract infection, unspecified type J06.9 [facility] [id number] [place] [address] 80577- 7661 Dec, [facility] [address] 30369 -1341 Dec, Acute suppurative otitis media of right ear without spontaneous rupture of tympanic membrane, recurrence not specified H66.001 and Acute nasopharyngitis J00 [place] [address] 65555- 5037 Dec, Back pain M54.9 [place] [id number] [place] [address] 01045- 1733 Dec, Foot infection L08.9 and 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 complication E11.49 [place] [id number] [place] [address] 36614- 3321 Nov, Cellulitis of toe of right foot L03.031 ; Polyneuropathy in diseases classified elsewhere G63 and HTN (hypertension) I10 [facility] [id number] [place] [address] 17254- 9748 Nov, [facility] [id number] [place] [address] 91190- 9926 Nov, [place] [address] 01079- 4718 Nov, Back pain M54.9 [facility] [id number] [place] [address] 03399- 2607 Nov, Shortness of breath R06.02 [facility] [address] [address]- 4081 Nov, [facility] [id number] [address]- 4597 Oct, [facility] [address] [address]- 6497 Oct, [facility] [id number] [place] [address] 65559- 6011 Oct, [facility] [address] [address]- 6203 Oct, [facility] [id number] [place] [address] 63338- 7024 Oct, [facility] [id number] [place] [address] 33053- 5985 Oct, Back pain M54.9 [facility] [id number] [place] [address] 51404- 6744 Oct, Back pain M54.9 [facility] [id number] [place] [address] 27737- 5958 Oct, [facility] [address] [address]- 4129 September, [facility] [address], [place] [address]- 8056 September, [facility] [address] [address]- 8203 September, [facility] [id number] [place] [address] 52677- 0745 September, 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 complication E11.49 and Hypotension, unspecified hypotension type I95.9 [facility] [address] [address]- 9698 September, [facility] [id number] [place] [address] 41768- 8253 September, [facility] [address] 83439- 8231 September, Back pain M54.9 [facility] [id number] [place] [address] 88143- 8505 Aug, [place] [address] 48678- 9559 Aug, Acute cystitis with hematuria N30.01 ; Ulcer of right foot, unspecified ulcer stage L97.519 ; HTN (hypertension) I10 ; COPD (chronic obstructive pulmonary disease) J44.9 and DM neuro manif type II E11.49 [place] [address] 80890- 3686 Aug, Back pain M54.9 [place] [address] 01421- 0839 Jul, [facility] [id number] [place] [address] 32465- 3145 Jul, Back pain M54.9 [facility] [address] 68873- 1556 Jul, [place] [id number] [place] [address] 51981- 9487 Jul, DM neuro manif type II E11.49 and Ulcer of right foot, unspecified ulcer stage L97.519 [place] [id number] [place] [address] 18868- 9715 Jun, [place] [address] 84005- 7188 Jun, [place] [address] 99620- 6671 May, 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 complication E11.49 ; GERD (gastroesophageal reflux disease) K21.9 and PAD ( peripheral artery disease) I73.9 [place] [id number] [place] [address] 32213- 3450 May, Decubital ulcer L89.90 ; Diabetes E11.9 and GERD ( gastroesophageal reflux disease) K21.9 [facility] [id number] [place] [address] 83109- 0446 May, [facility] [id number] [place] [address] 89760- 6059 Apr, [facility] [id number] [place] [address] 12372- 2999 Mar, [facility] [address] 01780- 2310 Mar, [facility] [id number] [place] [address] 00900- 8938 Feb, [facility] [id number] [place] [address] 51739- 8033 Feb, [facility] [id number] [place] [address] 35731- 3264 Jan, [facility] [id number] [place] [address] 26976- 7767 Jan, HTN (hypertension) I10 [facility] [id number] [place] [address] 92411- 0431 Jan, [facility] [id number] [place] [address] 67794- 1556 Dec, Back pain M54.9 [facility] [id number] [place] [address] 03836- 2742 Dec, Back pain M54.9 [facility] [id number] [place] [address] 13482 -2717 Dec, Encounter for immunization Z23 and Puncture wound of right foot, initial encounter S91.331A [facility] [id number] [place] [address] 54192- 3762 Dec, [facility] [address] [address]- 8071 Nov, [facility] [id number] [place] [address] 86157- 1270 Nov, COPD (chronic obstructive pulmonary disease) J44.9 [facility] [id number] [place] [address] 90912- 3050 Nov, [facility] [id number] [place] [address] 85751- 0780 Oct, [facility] [id number] [place] [address] 29641- 4149 Oct, [facility] [id number] [place] [address] 78181- 4724 September, Onychomycosis B35.1 and DM neuro manif type II E11.49 [facility] [id number] [place] [address] 94384- 6207 September, [facility] [id number] [place] [address] 69103- 9796 Aug, [facility] [id number] [place] [address] 16520- 5987 Jul, Sinusitis, unspecified chronicity, unspecified location J32.9 and Cough R05 [facility] [id number] [place] [address] 39280- 0519 Jul, Back pain M54.9 [facility] [id number] [place] [address] 18693- 4980 Jun, Back pain M54.9 [facility] [id number] [place] [address] 35262- 1212 06 Jun, 2016 COPD (chronic obstructive pulmonary disease) J44.9 [facility] [address] [address]- 9334 May, [facility] [address], [place] [address]- 2042 17 May, 2016 [facility] [id number] [address]- 9304 May, Back pain M54.9 [facility] [address], [place] [address]- 9295 16 May, 2016 [facility] [id number] [place] [address] 70412- 8138 May, [facility] [id number] [place] [address] 68235- 2771 12 May, 2016 Diabetes E11.9 [facility] [id number] [place] [address] 16447- 1190 11 May, 2016 Diabetes E11.9 ; GERD [...] Need for hepatitis C screening test Z11.59 [facility] [address] [address]- 3232 May, HTN (hypertension) I10 [facility] [address] [address]- 2046 Apr, [facility] [address] [address]- 9208 Apr, [facility] [address], [place] [address]- 0808 Apr, [facility] [address] [address]- 3596 Apr, [facility] [address], [place] [address]- 2449 Apr, [facility] [id number] [place] [address] 82118- 5963 Mar, [facility] [address] 27742- 5248 Mar, [facility] [id number] [place] [address] 72063- 2636 Mar, [facility] [address] 26462- 3519 Mar, [facility] [address] 98712- 7750 Mar, Dental examination Z01.20 [place] [address] 18006- 4670 Feb, [facility] [address] 27127- 2708 Feb, [facility] [address] 03171- 9576 Feb, Back pain M54.9 [place] [address] 55561- 6810 Jan, [facility] [id number] [place] [address] 48621- 2051 Jan, [place] [id number] [place] [address] 45112- 6827 Dec, Diabetes E11.9 ; GERD (gastroesophageal reflux disease) K21.9 ; ED (erectile dysfunction) N52.9 ; HTN (hypertension) I10 ; Insomnia G47.00 ; COPD (chronic obstructive pulmonary disease) J44.9 ; Neuropathy G62.9 and Bipolar depression F31.30 [facility] [id number] [place] [address] 02139- 1525 Dec, 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 complication E11.49 and Onychomycosis B35.1 [place] [address] 10709- 6154 Dec, [facility] [address] [id number] [place] [address]- 6817 Dec, [facility] [place] [facility] [address] [facility] [id number] [place] [address]- 9844 Dec, [facility] [place] [facility] [address] [facility] [place] [id number] [place] [address]- 1862 Dec, [facility] [place] [facility] [address] [facility] [id number] [place] [address] 59272- 5079 Nov, [facility] [place] [facility] [address] [facility] [id number] [place] [address]- 8502 Nov, [facility] [place] [facility] [address] [facility] [place] [id number] [place] [address]- 7050 Oct, [facility] [address] [address]- 8322 Oct, [facility] [address] [facility] [place] [id number] [address]- 8458 Oct, Back pain M54.9 [facility] [id number] [place] [address] 82149- 5676 Oct, [facility] [id number] [address]- 0625 Oct, [facility] [address], [place] [address]- 0517 Oct, [facility] [address] [facility] [place] [id number] [address]- 5555 Oct, HTN (hypertension) I10 [facility] [address], [place] [address]- 5519 Oct, Back pain M54.9 [facility] [id number] [address]- 4145 Oct, Chronic pain syndrome G89.4 [facility] [id number] [place] [address] 92249- 1133 September, Back pain M54.9 [facility] [id number] [place] [address] 818443- 0881 September, HTN (hypertension) I10 [facility] [id number] [place] [address] 39729- 7192 29 Aug, 2015 Porokeratosis Q82.8 ; Onychomycosis B35.1 and 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 complication E11.49 [facility] [id number] [place] [address] 95876- 9691 Aug, GERD (gastroesophageal reflux disease) K21.9 ; Diabetes E11.9 ; HTN (hypertension) I10 ; Insomnia G47.00 ; Restless legs syndrome G25.81 ; COPD (chronic obstructive pulmonary disease) J44.9 ; Back pain M54.9 and Bipolar 1 disorder F31.9 [facility] [id number] [place] [address] 79419- 3643 Aug, [facility] [id number] [place] [address] 45653- 8168 Aug, [facility] [id number] [place] [address] 64599- 0965 Aug, [facility] [id number] [place] [address] 22276- 8792 Aug, [facility] [id number] [place] [address] 19143- 1969 31 Jul, 2015 [facility] [id number] [place] [address] 07890- 7078 31 Jul, 2015 [facility] [id number] [place] [address] 832639- 4940 30 Jul, 2015 [facility] [address]- 2556 16 Jul, 2015 [facility] [id number] [place] [address] 48644- 9663 Jul, [facility] [address] [address]- 8505 Jul, [facility] [address] [place] [address] 48737- 7289 Jun, Decubital ulcer L89.90 ; Diabetes E11.9 ; Back pain M54.9 ; HTN (hypertension) I10 and COPD (chronic obstructive pulmonary disease) J44.9 [facility] [id number] [place] [address] 10328- 3945 Jun, [facility] [id number] [place] [address] 85453- 9622 Jun, [facility] [id number] [place] [address] 71262- 4997 Jun, [facility] [id number] [place] [address] 10830- 0737 Jun, [facility] [address] [place] [address] 77933- 0336 Jun, Diabetes E11.9 ; Insomnia G47.00 ; Decubital ulcer L89.90 ; GERD (gastroesophageal reflux disease) K21.9 ; Back pain M54.9 ; Superficial fungus infection of skin B36.9 and HTN (hypertension) I10 [address] [id number] [id number] Jun, Dental examination Z01.20 [facility] [address], [place] [address]- 8086 May, [facility] [id number] [place] [address] 15138- 7616 May, [facility] [address], [place] [address]- 5865 May, [facility] [address], [place] [address]- 3744 May, Diabetes E11.9 ; HTN (hypertension) I10 and Decubital ulcer L89.90 [place] [id number] [place] [address] 03458- 7952 May, HTN (hypertension) I10 ; Decubital ulcer L89.90 and Diabetes E11.9 [place] [id number] [place] [address] 66406- 6298 30 Apr, 2015 Diabetes E11.9 ; GERD (gastroesophageal reflux disease) K21.9 ; Back pain M54.9 ; HTN (hypertension) I10 ; Restless legs syndrome G25.81 and Decubital ulcer L89.90 [place] [address] 44577- 7537 17 Apr, 2015 [place] [address] 77887- 8897 Apr, Diabetes E11.9 ; HTN (hypertension) I10 ; Restless legs syndrome G25.81 ; GERD (gastroesophageal reflux disease) K21.9 and COPD ( chronic obstructive pulmonary disease) J44.9 [place] [id number] [place] [address] 28635- 5388 Mar, [place] [address] 21977- 0652 Mar, [place] [address] 84384- 2274 Mar, Diabetes E11.9 ; Abscess L02.91 and Restless legs syndrome G25.81 [place] [id number] [place] [address] 45931- 1247 Mar, [place] [address] 43287- 9823 Feb, GERD (gastroesophageal reflux disease) K21.9 ; Back pain M54.9 ; ED (erectile dysfunction) N52.9 ; Diabetes E11.9 ; HTN (hypertension) I10 and Insomnia G47.00 [place] [address] 98063- 1016 Feb, [facility] [id number] [place] [address] 40185- 5977 Feb, [facility] [id number] [place] [address] 01489- 1091 Jan, [facility] [id number] [place] [address] 12575- 0533 Jan, Diabetes 250.00 ; Nondependent cannabis abuse, continuous 305.21 ; Cough 786.2 ; Schizoaffective disorder, unspecified 295.70 ; Sciatica 724.3 ; Other, mixed, or unspecified nondependent drug abuse, unspecified 305.90 ; Chronic pain 338.29 ; GERD (gastroesophageal reflux disease) 530.81 and HTN (hypertension) 401.9 [facility] [id number] [place] [address] 26431- 8452 Jan, [facility] [address] 23622- 6260 Jan, [facility] [id number] [place] [address] 83595- 7469 Jan, Chronic pain associated with significant psychosocial dysfunction 338.4 ; Diabetes mellitus without mention of complication, type I [ juvenile type], uncontrolled 250.03 ; Benign essential hypertension 401.1 ; Schizoaffective disorder, unspecified 295.70 ; Wheezing 786.07 ; Ear ache 388.70 ; Cough 786.2 ; Sciatica 724.3 and Foot pain, bilateral 729.5 [facility] [id number] [place] [address] 89536- 1312 Dec, [facility] [id number] [place] [address] 91396- 6715 Dec, [facility] [id number] [place] [address] 89489- 5771 Dec, [facility] [id number] [place] [address] 30836- 2192 Dec, [facility] [address] [address]- 2378 Dec, [facility] [id number] [place] [address] 92735- 2158 Nov, Elevated liver enzymes 790.5 [facility] [id number] [place] [address] 31323- 1908 Nov, [facility] [id number] [place] [address] 25616- 7265 Nov, [facility] [id number] [place] [address] 97398- 7886 Nov, [facility] [id number] [place] [address] 40715- 6401 Nov, Benign essential hypertension 401.1 ; Diabetes mellitus without mention of complication, type I [juvenile type], uncontrolled 250.03 and Nondependent cannabis abuse, continuous 305.21 [facility] [id number] [place] [address] 74926- 1560 Oct, Cellulitis 682.9 and Benign essential hypertension 401.1 [facility] [id number] [place] [address] 20862- 9045 Oct, [facility] [id number] [place] [address] 31658- 5462 September, [facility] [address], [place] [address]- 0903 September, [facility] [id number] [place] [address] 48176- 8774 Aug, [facility] [id number] [place] [address] 17396- 6793 Aug, [facility] [id number] [place] [address] 93305- 4320 Aug, [facility] [address], [place] [address]- 1104 Aug, [facility] [place] [facility] [address] [id number] [place] [address]- 0464 Jul, [facility] [place] [facility] [address] [id number] [place] [address]- 1588 Jul, [facility] [place] [facility] [address] [id number] [place] [address]- 1744 Jul, [facility] [place] [facility] [address] [id number] [place] [address]- 1010 Jul, [facility] [place] [facility] [address] [id number] [place] [address]- 4421 Jul, [facility] [place] [facility] [address] [id number] [place] [address]- 9270 Jul, [facility] [place] [facility] [address] [id number] [place] [address]- [address] Jun, [facility] [place] [facility] [address] [id number] [place] [address] Jun, [facility] [place] [facility] [address] [id number] [place] [address] Jun, [facility] [place] [facility] [address] [facility] [place] [id number] [place] [address] Jun, [facility] [place] [facility] [address] [id number] [place] [address] Jun, [facility] [place] [facility] [address] [id number] [place] [address] May, [facility] [place] [facility] [address] [id number] [place] [address] May, [facility] [place] [facility] [address] [id number] [place] [address] May, [facility] [place] [facility] [address] [id number] [place] [address] May, [facility] [place] [facility] [address] [id number], [place] [address] May, [facility] [place] [facility] [address] [id number] [place] [address] May, [facility] [place] [facility] [address] [id number] [place] [address] May, [facility] [place] [facility] [address] [id number] [place] [address] May, [facility] [place] [facility] [address] [id number] [place] [address] Apr, [facility] [place] [facility] [address] [address] [id number] [place] [address] Apr, [facility] [place] [facility] [address] [id number] [place] [address] Apr, [facility] [place] [facility] [address] [id number] [place] [address] Apr, [facility] [place] [facility] [address] [id number] [place] [address] Mar, [facility] [place] [facility] [address] [id number] [place] [address] Mar, [facility] [place] [facility] [address] [id number] [place] [address] Mar, [facility] [place] [facility] [address] [id number], [place] [address] Mar, [facility] [place] [facility] [address] [id number], [place] [address] Feb, [facility] [place] [facility] [address] [id number] [place] [address] Feb, [facility] [place] [facility] [address] [id number] [place] [address] Feb, [facility] [place] [facility] [address] [id number] [place] [address] Feb, [facility] [place] [facility] [address] [id number] [place] [address] 1985 Feb, [facility] [place] [facility] [address] [id number] [place] [address] Feb, [facility] [place] [facility] [address] [id number] [place] [address] Jan, [facility] [place] [facility] [address] [id number] [place] [address] Jan, [facility] [place] [facility] [address] [id number] [place] [address] Jan, [facility] [place] [facility] [address] [id number] [place] [address] Jan, [facility] [place] [facility] [address] [id number] [place] [address] Dec, [facility] [place] [facility] [address] [id number] [place] [address] Dec, [facility] [place] [facility] [address] [id number] [place] [address] Dec, [facility] [place] [facility] [address] [id number] [place] [address] Dec, [facility] [place] [facility] [address] [id number] [place] [address] Dec, [facility] [place] [facility] [address] [id number] [place] [address] Dec, [facility] [place] [facility] [address] [id number] [place] [address] Oct, [facility] [place] [facility] [address] [id number] [place] [address] Oct, [facility] [place] [facility] [address] [id number] [place] [address] September, [facility] [place] [facility] [address] [id number] [place] [address] September, [facility] [place] [facility] [address] [id number] [place] [address]- [address] September, [facility] [place] [facility] [address] [id number] [place] [address] September, [facility] [place] [facility] [address] [id number] [place] [address] September, [facility] [place] [facility] [address] [id number] [place] [address]- [address] September, [facility] [place] [facility] [address] [id number] [place] [address]- [address] Aug, [facility] [place] [facility] [address] [id number] [place] [address] Aug, [facility] [place] [facility] [address] [id number] [place] [address] Aug, [facility] [place] [facility] [address] [id number] [place] [address] Aug, [facility] [place] [facility] [address] [id number] [place] [address] Jul, [facility] [place] [facility] [address] [id number] [place] [address] Jul, [facility] [place] [facility] [address] [id number] [place] [address] Jun, [facility] [place] [facility] [address] [id number] [place] [address] Jun, [facility] [place] [facility] [address] [id number] [place] [address]- [address] May, [facility] [place] [facility] [address] [id number] [place] [address] May, [facility] [place] [facility] [address] [id number] [place] [address] Jan, [facility] [place] [facility] [address] [id number] [place] [address] Dec, [facility] [address] [id number] [place] [address] Jun, [facility] [address] [id number] [place] [address] May, [facility] [address] [id number] [place] [address] Nov, [facility] [address] [id number] [place] [address] September, [facility] [address] [id number] [place] [address] Aug, [facility] [address] [id number] [place] [address] Aug, [facility] [address] [id number] [place] [address] Aug, [facility] [address] [id number] [place] [address]- [address] Aug, [facility] [address] [id number] [place] [address]- [address] Nov, [facility] [address] [id number] [place] [address] Oct, [facility] [address] [id number] [place] [address] Jul, [facility] [address] [id number] [place] [address] Feb, [facility] [place] [facility] [address] [id number] [place] [address] Feb, [facility] [place] [facility] [address] [id number] [place] [address] Apr, [facility] [address] [id number] [place] [address] Apr, [facility] [address] [facility] [place] [id number] [place] [address] Feb, [facility] [address] [facility] [place] [id number] [address] Feb, [facility] [address] [facility] [place] [id number] [place] [address] Jul, IMMUNIZATIONS No Known Immunizations SOCIAL HISTORY [...]
--- OUTSIDE RECORDS SUMMARY | 2018-09-15 22:25 | XMS REPORT ---
Author Author YVES BLEVINS [facility] Address [address] [place] [address] Care Team Providers Care Rock Picker Name Role Phone YVES BLEVINS Unavailable PROBLEMS Type Condition ICD9-CM Code TQX50-PM Code Onset Dates Condition Status SNOMED Code Problem HTN (hypertension) I10 Active 73673798 Problem Restless legs syndrome G25.81 Active 964300037 Problem GERD (gastroesophageal reflux disease) K21.9 Active 912112955 Problem Chronic hepatitis C without hepatic coma B18.2 Active 119038974 Problem ED (erectile dysfunction) N52.9 Active 043120941 Problem PAD (peripheral artery disease) I73.9 Active 174698033 Problem Ulcer of right foot, unspecified ulcer stage L97.519 Active 91458777 Problem 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 887497801 Problem COPD (chronic obstructive pulmonary disease) J44.9 Active 97063643 Problem DM neuro manif type II E11.49 Active 00304728 Problem Sinusitis, unspecified chronicity, unspecified location J32.9 Active 80167149 ALLERGIES No Information ENCOUNTERS Encounter Location Date Diagnosis [place] [id number], [place] [address] Mar, [facility] [id number] [place] [address] 57339- 2355 Mar, [place] [address] [id number] [place] [address] 35349- 9979 Mar, Polyneuropathy in diseases classified elsewhere G63 [facility] [id number] [place] [address] 05989- 8896 Feb, Back pain M54.9 [facility] [id number] [place] [address] 76102- 4788 Jan, Back pain M54.9 [facility] [id number] [place] [address] 90013- 8414 07 Jan, 2018 [facility] [id number] [place] [address] 71419- 9622 Jan, [facility] [id number] [place] [address] 40450- 8327 Dec, Back pain M54.9 [facility] [id number] [place] [address] 14949- 5136 Dec, [facility] [id number] [place] [address] 71379- 2793 Dec, Upper respiratory tract infection, unspecified type J06.9 [facility] [id number] [place] [address] 91908- 6256 Dec, [facility] [id number] [place] [address] 68362 -6477 Dec, Acute suppurative otitis media of right ear without spontaneous rupture of tympanic membrane, recurrence not specified H66.001 and Acute nasopharyngitis J00 [facility] [id number] [place] [address] 54593- 5829 Dec, Back pain M54.9 [facility] [id number] [place] [address] 72342- 3870 Dec, Foot infection L08.9 and 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 complication E11.49 [facility] [id number] [place] [address] 39236- 1150 Nov, Cellulitis of toe of right foot L03.031 ; Polyneuropathy in diseases classified elsewhere G63 and HTN (hypertension) I10 [facility] [address] [id number] [place] [address] 64506- 5677 Nov, [facility] [id number] [place] [address] 08461- 8789 Nov, [facility] [address] [address] 4719 Nov, Back pain M54.9 [facility] [id number] [place] [address] 01347- 5425 Nov, Shortness of breath R06.02 [facility] [id number] [place] [address]- 5026 Nov, [facility] [id number] [place] [address] 18431- 3443 Oct, [facility] [id number] [place] [address]- 6739 Oct, [facility] [id number] [place] [address] 56662- 9835 Oct, [facility] [id number] [place] [address] 98926- 6997 Oct, [facility] [id number] [place] [address] 07857- 5783 Oct, [facility] [id number] [place] [address] 79741- 0473 Oct, Back pain M54.9 [facility] [address], [place] [address]- 8167 Oct, Back pain M54.9 [facility] [address], [place] [address]- 1461 Oct, [facility] [address], [place] [address]- 4579 September, [facility] [address], [place] [address]- 6422 September, [facility] [address], [place] [address]- 9834 September, [facility] [address], [place] [address]- 1096 September, 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 complication E11.49 and Hypotension, unspecified hypotension type I95.9 [facility] [id number] [place] [address] 53043- 5143 September, [facility] [id number] [place] [address] 48142- 3884 September, [facility] [id number] [place] [address] 98890- 6743 September, Back pain M54.9 [facility] [id number] [place] [address] 19355- 2466 Aug, [facility] [address] 27097- 9372 Aug, Acute cystitis with hematuria N30.01 ; Ulcer of right foot, unspecified ulcer stage L97.519 ; HTN (hypertension) I10 ; COPD (chronic obstructive pulmonary disease) J44.9 and DM neuro manif type II E11.49 [facility] [id number] [place] [address] 76183- 3763 Aug, Back pain M54.9 [facility] [id number] [place] [address] 88462- 1691 Jul, [facility] [id number] [place] [address] 54345- 5699 Jul, Back pain M54.9 [facility] [id number] [place] [address] 43930- 8516 Jul, [facility] [id number] [place] [address] 32589- 1057 Jul, DM neuro manif type II E11.49 and Ulcer of right foot, unspecified ulcer stage L97.519 [facility] [id number] [place] [address] 14845- 6505 Jun, [facility] [id number] [place] [address] 00449- 8449 Jun, [facility] [id number], [place] [address]- 9978 May, 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 complication E11.49 ; GERD (gastroesophageal reflux disease) K21.9 and PAD ( peripheral artery disease) I73.9 [facility] [id number] [place] [address] 74600- 0855 17 May, 2017 Decubital ulcer L89.90 ; Diabetes E11.9 and GERD ( gastroesophageal reflux disease) K21.9 [facility] [id number] [place] [address] 15293- 5021 May, [facility] [id number] [place] [address] 80668- 6531 Apr, [facility] [id number] [place] [address] 30784- 6694 Mar, [facility] [id number] [place] [address] 06728- 3936 Mar, [facility] [id number] [place] [address] 96068- 9768 Feb, [facility] [id number] [place] [address] 51779- 2865 Feb, [facility] [id number] [place] [address] 16401- 8443 Jan, [facility] [id number] [place] [address] 32194- 8947 Jan, HTN (hypertension) I10 [facility] [id number] [place] [address] 91192- 4704 Jan, [facility] [id number] [place] [address] 88893- 4092 Dec, Back pain M54.9 [facility] [id number] [address]- 6192 Dec, Back pain M54.9 [facility] [id number] [address] -7958 Dec, Encounter for immunization Z23 and Puncture wound of right foot, initial encounter S91.331A [facility] [address] [id number] [place] [address] 74365- 2274 Dec, [facility] [id number] [place] [address] 30388- 0460 Nov, [facility] [address] [id number] [place] [address] 92960- 4776 Nov, COPD (chronic obstructive pulmonary disease) J44.9 [place] [address] [place] [id number] [place] [address] 34139- 3848 Nov, [facility] [address] [place] [id number] [place] [address] 25083- 8025 Oct, [place] [address] [id number] [place] [address] 42543- 9589 Oct, [facility] [address] [place] [id number] [place] [address] 40550- 9513 September, Onychomycosis B35.1 and DM neuro manif type II E11.49 [place] [address] [place] [id number] [place] [address] 24815- 8698 September, [facility] [address] [id number] [place] [address] 40627- 1129 Aug, [facility] [id number] [place] [address] 30938- 3668 Jul, Sinusitis, unspecified chronicity, unspecified location J32.9 and Cough R05 [facility] [address] [place] [id number] [place] [address] 40160- 4080 Jul, Back pain M54.9 [facility] [id number] [place] [address] 61569- 7905 14 Jun, 2016 Back pain M54.9 [facility] [address] [place] [id number] [place] [address] 37671- 7189 Jun, COPD (chronic obstructive pulmonary disease) J44.9 [facility] [address], [place] [address]- 8404 May, [facility] [address], [place] [address]- 0970 May, [facility] [id number] [place] [address] 91469- 8502 May, Back pain M54.9 [facility] [id number] [place] [address] 30339- 3186 May, [facility] [address] [place] [id number] [place] [address] 13233- 1729 May, [facility] [address] [place] [id number] [place] [address] 25526- 7291 May, Diabetes E11.9 [facility] [address] [place] [id number] [place] [address] 83460- 4050 May, Diabetes E11.9 ; GERD (gastroesophageal reflux [...] Need for hepatitis C screening test Z11.59 [facility] [address], [place] [address]- 7565 May, HTN (hypertension) I10 [facility] [id number], [place] [address]- 1607 Apr, [facility] [address], [place] [address]- 2822 Apr, [facility] [address], [place] [address]- 3647 Apr, [facility] [id number] [place] [address] 25977- 3647 Apr, [facility] [id number] [place] [address] 65310- 3753 Apr, [facility] [id number] [place] [address] 77402- 7983 Mar, [facility] [id number] [place] [address] 68478- 3046 Mar, [facility] [id number] [place] [address] 65295- 8832 Mar, [facility] [id number] [place] [address] 33922- 5899 Mar, [facility] [id number] [place] [address] 01955- 0851 Mar, Dental examination Z01.20 [facility] [id number] [place] [address] 58754- 7523 Feb, [facility] [id number] [place] [address] 57638- 4499 Feb, [facility] [id number] [place] [address] 35279- 5652 Feb, Back pain M54.9 [facility] [id number] [place] [address] 91053- 1032 Jan, [facility] [id number] [place] [address] 17498- 4547 Jan, [facility] [address] [place] [address] 74959- 4403 Dec, Diabetes E11.9 ; GERD (gastroesophageal reflux disease) K21.9 ; ED (erectile dysfunction) N52.9 ; HTN (hypertension) I10 ; Insomnia G47.00 ; COPD (chronic obstructive pulmonary disease) J44.9 ; Neuropathy G62.9 and Bipolar depression F31.30 [facility] [address] [address]- 3362 Dec, 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 complication E11.49 and Onychomycosis B35.1 [facility] [address], [place] [address]- 1546 Dec, [facility] [id number] [place] [address]- 6235 Dec, [facility] [address], [place] [address]- 9816 Dec, [facility] [id number] [place] [address]- 1628 Dec, [facility] [address], [place] [address]- 3122 Nov, [facility] [address], [place] [address]- 9534 Nov, [facility] [address], [place] [address]- 7582 Oct, [facility] [address], [place] [address]- 4955 Oct, [facility] [address], [place] [address]- 1769 Oct, Back pain M54.9 [facility] [id number], [place] [address]- 0017 Oct, [facility] [address], [place] [address]- 6337 Oct, [facility] [address], [place] [address]- 9325 Oct, [facility] [address], [place] [address]- 0995 Oct, HTN (hypertension) I10 [facility] [address], [place] [address]- 2939 Oct, Back pain M54.9 [facility] [id number] [place] [address] 15289- 4511 Oct, Chronic pain syndrome G89.4 [facility] [id number] [place] [address] 86564- 3157 September, Back pain M54.9 [facility] [id number] [place] [address] 67135- 8507 September, HTN (hypertension) I10 [facility] [id number] [place] [address] 79588- 5230 Aug, Porokeratosis Q82.8 ; Onychomycosis B35.1 and 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 complication E11.49 [facility] [id number] [place] [address] 95326- 3348 Aug, GERD (gastroesophageal reflux disease) K21.9 ; Diabetes E11.9 ; HTN (hypertension) I10 ; Insomnia G47.00 ; Restless legs syndrome G25.81 ; COPD (chronic obstructive pulmonary disease) J44.9 ; Back pain M54.9 and Bipolar 1 disorder F31.9 [facility] [id number] [place] [address] 04368- 9138 Aug, [facility] [id number] [place] [address] 37397- 0277 Aug, [facility] [id number] [place] [address] 18251- 4689 Aug, [facility] [id number] [place] [address] 11161- 9821 Aug, [facility] [id number] [place] [address] 83499- 0625 Jul, [facility] [id number] [place] [address] 57783- 8430 Jul, [facility] [id number] [place] [address] 60488- 0970 30 Jul, 2015 [facility] [address], [place] [address]- 3381 16 Jul, 2015 [facility] [id number] [place] [address] 38842- 3809 15 Jul, 2015 [facility] [id number] [place] [address] 44267- 5515 Jul, [facility] [id number] [place] [address] 20725- 9380 Jun, Decubital ulcer L89.90 ; Diabetes E11.9 ; Back pain M54.9 ; HTN (hypertension) I10 and COPD (chronic obstructive pulmonary disease) J44.9 [facility] [id number] [place] [address] 01041- 2229 Jun, [facility] [id number] [place] [address] 59327- 5180 Jun, [facility] [id number] [place] [address] 26832- 0569 Jun, [facility] [id number] [place] [address] 13058- 1480 Jun, [facility] [address], [place] [address]- 0050 Jun, Diabetes E11.9 ; Insomnia G47.00 ; Decubital ulcer L89.90 ; GERD (gastroesophageal reflux disease) K21.9 ; Back pain M54.9 ; Superficial fungus infection of skin B36.9 and HTN (hypertension) I10 [place] [id number] [facility] [id number] [id number] Jun, Dental examination Z01.20 [facility] [address], [place] [address]- 4041 May, [facility] [address], [place] [address]- 9185 May, [facility] [id number] [address]- 3117 May, [place] [id number] [place] [address]- 4724 May, Diabetes E11.9 ; HTN (hypertension) I10 and Decubital ulcer L89.90 [place] [id number] [place] [address] 37042- 4420 May, HTN (hypertension) I10 ; Decubital ulcer L89.90 and Diabetes E11.9 [place] [id number] [place] [address] 40406- 8585 Apr, Diabetes E11.9 ; GERD (gastroesophageal reflux disease) K21.9 ; Back pain M54.9 ; HTN (hypertension) I10 ; Restless legs syndrome G25.81 and Decubital ulcer L89.90 [place] [id number] [place] [address] 76479- 1320 Apr, [place] [id number] [place] [address] 68614- 1099 Apr, Diabetes E11.9 ; HTN (hypertension) I10 ; Restless legs syndrome G25.81 ; GERD (gastroesophageal reflux disease) K21.9 and COPD ( chronic obstructive pulmonary disease) J44.9 [place] [id number] [place] [address] 14789- 2054 Mar, [place] [id number] [place] [address] 18275- 4674 Mar, [place] [id number] [place] [address] 92526- 4142 Mar, Diabetes E11.9 ; Abscess L02.91 and Restless legs syndrome G25.81 [place] [id number] [place] [address] 82548- 1467 Mar, [place] [id number] [place] [address] 91262- 8839 Feb, GERD (gastroesophageal reflux disease) K21.9 ; Back pain M54.9 ; ED (erectile dysfunction) N52.9 ; Diabetes E11.9 ; HTN (hypertension) I10 and Insomnia G47.00 [place] [id number] [place] [address] 64920- 2623 Feb, [place] [id number] [place] [address] 47097- 0061 Feb, [place] [address] [address] Jan, [place] [id number] [place] [address] 97250- 0694 Jan, Diabetes 250.00 ; Nondependent cannabis abuse, continuous 305.21 ; Cough 786.2 ; Schizoaffective disorder, unspecified 295.70 ; Sciatica 724.3 ; Other, mixed, or unspecified nondependent drug abuse, unspecified 305.90 ; Chronic pain 338.29 ; GERD (gastroesophageal reflux disease) 530.81 and HTN (hypertension) 401.9 [place] [id number] [place] [address] 61944- 3066 Jan, [address] [address] Jan, [place] [id number] [place] [address] 94352- 6592 Jan, Chronic pain associated with significant psychosocial dysfunction 338.4 ; Diabetes mellitus without mention of complication, type I [ juvenile type], uncontrolled 250.03 ; Benign essential hypertension 401.1 ; Schizoaffective disorder, unspecified 295.70 ; Wheezing 786.07 ; Ear ache 388.70 ; Cough 786.2 ; Sciatica 724.3 and Foot pain, bilateral 729.5 [place] [id number] [place] [address] 17045- 6451 Dec, [place] [id number] [place] [address] 45980- 5986 Dec, [place] [id number] [address] Dec, [facility] [id number] [place] [address] 43970- 3387 Dec, [facility] [id number], [place] [address] Dec, [facility] [id number] [place] [address] 16155- 8198 Nov, Elevated liver enzymes 790.5 [facility] [id number] [place] [address] 13787- 4831 Nov, [facility] [id number] [place] [address] 20442- 6156 Nov, [facility] [id number] [place] [address] 97306- 6564 Nov, [facility] [address] [place] [id number] [place] [address] Nov, Benign essential hypertension 401.1 ; Diabetes mellitus without mention of complication, type I [juvenile type], uncontrolled 250.03 and Nondependent cannabis abuse, continuous 305.21 [facility] [id number] [place] [address] Oct, Cellulitis 682.9 and Benign essential hypertension 401.1 [facility] [id number] [address] Oct, [facility] [id number] [address] September, [facility] [id number] [place] [address]- [address] September, [facility] [id number] [address] Aug, [facility] [id number] [address] Aug, [facility] [place] [facility] [address] [id number] [place] [address] 14 Aug, 2014 [facility] [place] [facility] [address] [id number] [place] [address]958 13 Aug, 2014 [facility] [place] [facility] [address] [id number] [place] [address]99 Jul, [facility] [place] [facility] [address] [id number] [place] [address]- 2402 Jul, [facility] [place] [facility] [address] [id number] [place] [address]32 Jul, [facility] [place] [facility] [address] [id number] [place] [address] 3414 Jul, [facility] [place] [facility] [address] [facility] [id number] [place] [address] Jul, [facility] [place] [facility] [address] [id number] [place] [address]- 0166 Jul, [facility] [place] [facility] [address] [id number] [place] [address]- 6790 Jun, [facility] [place] [facility] [address] [id number] [place] [address]- 6477 Jun, [facility] [place] [facility] [address] [facility] [id number] [place] [address]- 6094 Jun, [facility] [place] [facility] [address] [id number], [place] [address] 3028 Jun, [facility] [place] [facility] [address] [id number] [place] [address]- 8927 Jun, [facility] [place] [facility] [address] [id number] [place] [address]- 5218 May, [facility] [place] [facility] [address] [id number] [place] [address]- 0309 May, [facility] [place] [facility] [address] [id number], [place] [address] 7680 May, [facility] [place] [facility] [address] [id number] [place] [address]- 4398 May, [facility] [place] [facility] [address] [id number] [place] [address]- 4396 May, [facility] [place] [facility] [address] [id number] [place] [address] 1925 May, [facility] [place] [facility] [address] [id number] [place] [address]- 3768 May, [facility] [place] [facility] [address] [id number] [place] [address]- 3032 May, [facility] [place] [facility] [address] [id number] [place] [address]- 0607 Apr, [facility] [place] [facility] [address] [id number] [place] [address]- 8250 Apr, [facility] [place] [facility] [address] [id number] [place] [address]- 9254 Apr, [facility] [place] [facility] [address] [id number] [place] [address]- 9372 Apr, [facility] [place] [facility] [address] [id number] [place] [address]- 0922 Mar, [facility] [place] [facility] [address] [id number], [place] [address] 00[address] Mar, [facility] [place] [facility] [address] [id number], [place] [address] 8[address] Mar, [facility] [place] [facility] [address] [id number] [place] [address]- 1793 Mar, [facility] [place] [facility] [address] [id number] [place] [address]- 9862 Feb, [facility] [place] [facility] [address] [id number] [place] [address]- 4705 Feb, [facility] [place] [facility] [address] [id number] [place] [address]- 7650 Feb, [facility] [place] [facility] [address] [id number] [place] [address]- 7467 Feb, [facility] [place] [facility] [address] [id number] [place] [address]- 1269 Feb, [facility] [place] [facility] [address] [id number] [place] [address]- 4443 Feb, [facility] [place] [facility] [address] [id number] [place] [address]- 8547 Jan, [facility] [place] [facility] [address] [id number] [place] [address]- 9207 Jan, [facility] [place] [facility] [address] [id number] [place] [address]- 6593 Jan, [facility] [place] [facility] [address] [id number] [place] [address]- 2050 Jan, [facility] [place] [facility] [address] [id number] [place] [address]- 5913 Dec, [facility] [place] [facility] [address] [id number] [place] [address]- 5669 Dec, [facility] [place] [facility] [address] [id number] [place] [address]- 9175 Dec, [facility] [place] [facility] [address] [id number] [place] [address]- 1741 Dec, [facility] [place] [facility] [address] [id number] [place] [address]- 0589 Dec, [facility] [place] [facility] [address] [id number] [place] [address]- 2362 Dec, [facility] [place] [facility] [address] [id number] [place] [address]- 6066 Oct, [facility] [place] [facility] [address] [id number] [place] [address]- 9969 Oct, [facility] [place] [facility] [address] [id number] [place] [address]- 6787 September, [facility] [place] [facility] [address] [id number] [place] [address]- 8731 September, [facility] [place] [facility] [address] [id number] [place] [address]- 5698 September, [facility] [place] [facility] [address] [id number] [place] [address]- 1025 September, [facility] [place] [facility] [address] [id number] [place] [address]- 7829 September, [facility] [place] [facility] [address] [id number] [place] [address]- 0303 September, [facility] [place] [facility] [address] [id number] [place] [address]- 7491 Aug, [facility] [place] [facility] [address] [id number] [place] [address]- 6834 Aug, [facility] [place] [facility] [address] [id number] [place] [address]- 9984 Aug, [facility] [place] [facility] [address] [id number] [place] [address]- 1661 Aug, [facility] [place] [facility] [address] [id number] [place] [address]- 8691 Jul, [facility] [place] [facility] [address] [id number] [place] [address]- 6667 Jul, [facility] [place] [facility] [address] [id number] [place] [address]- 4019 Jun, [facility] [place] [facility] [address] [id number] [place] [address]- 5856 Jun, [facility] [place] [facility] [address] [id number] [place] [address]- 7853 May, [facility] [place] [facility] [address] [id number] [place] [address]- 4429 May, [facility] [address] [id number] [place] [address]- 7132 Jan, [facility] [place] [facility] [address] [id number] [place] [address]- 2660 Dec, [facility] [address] [id number] [place] [address]- 7338 Jun, [facility] [place] [facility] [address] [id number] [place] [address]- 0866 May, [facility] [address] [id number] [place] [address]- 9813 Nov, [facility] [address] [id number] [place] [address]- 1762 September, [facility] [address] [id number] [place] [address]- 2861 Aug, [facility] [address] [id number] [place] [address]- 6913 Aug, [facility] [address] [id number] [place] [address]- 5736 Aug, [facility] [address] [id number] [place] [address]- 1166 Aug, [facility] [address] [id number] [place] [address]- 8251 Nov, [facility] [address] [id number] [place] [address]- 7621 Oct, [facility] [place] [facility] [address] [id number] [place] [address]- 9849 Jul, [facility] [place] [facility] [address] [id number] [place] [id number] Feb, [facility] [place] [facility] [address] [id number] [place] [address] Feb, [facility] [address] [facility] [id number], [place] [address]- 2516 Apr, [facility] [address] [facility] [id number], [place] [address]- 2546 Apr, [facility] [address] [facility] [id number], [place] [address]- [address]46 Feb, [facility] [address] [facility] [id number], [place] [address]- 2546 Feb, [facility] [address] [facility] [id number], [place] [address]- 4930 Jul, IMMUNIZATIONS No Known Immunizations SOCIAL HISTORY Never Assessed REASON FOR VISIT Enrolled in [facility] PLAN OF CARE VITAL SIGNS MEDICATIONS Medication Instructions Dosage Frequency Start Date End Date Duration Status Ropinirole HCl 3 MG TAKE ONE TABLET BY MOUTH ONCE DAILY 1 TO 3 HOURS BEFORE AT BEDTIME 90 Active Cymbalta 60 mg Orally Once a day 1 capsule 24h May, Active Invega 6 MG Orally at bedtime 1 tablet Active benztropine 1 mg take 1 tablet (1 mg) by oral route 3 times per day Dec, Active Metoprolol Succinate 50 mg Orally Once a day at bedtime 1 capsule Active Ventolin HFA 108 (90 Base) MCG/ACT Inhalation every 4 hours as needed 2 puffs as needed Active Elavil 75 by oral route at bedtime 1 tablet Dec, Active Ranitidine HCl 150 MG TAKE ONE TABLET BY MOUTH TWICE DAILY 90 Active Lisinopril 20 mg Orally Once a day 1 tablet 24h 90 Active Depakote 500 mg Orally 4 times a day 1 tablet 6h May, Active Hydrocodone-Ibuprofen 7.5-200 MG Orally 3 times a day 1 tablet as needed 8h Feb, 28 days Active Lyrica 150 MG Orally Twice a day [...]
--- OUTSIDE RECORDS SUMMARY | 2018-09-15 22:26 | XMS REPORT ---
Author Author YVES BLEVINS [facility] Address [address] [place] [address] Care Team Providers Care Lime Mixer Name Role Phone YVES BLEVINS Unavailable PROBLEMS Type Condition ICD9-CM Code HNY52-VS Code Onset Dates Condition Status SNOMED Code Problem HTN (hypertension) I10 Active 45927024 Problem Restless legs syndrome G25.81 Active 830272606 Problem GERD (gastroesophageal reflux disease) K21.9 Active 699032137 Problem Chronic hepatitis C without hepatic coma B18.2 Active 757799425 Problem ED (erectile dysfunction) N52.9 Active 150117327 Problem PAD (peripheral artery disease) I73.9 Active 264509280 Problem Ulcer of right foot, unspecified ulcer stage L97.519 Active 12718418 Problem 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 764548132 Problem COPD (chronic obstructive pulmonary disease) J44.9 Active 00694102 Problem DM neuro manif type II E11.49 Active 50510940 Problem Sinusitis, unspecified chronicity, unspecified location J32.9 Active 61656460 ALLERGIES No Information ENCOUNTERS Encounter Location Date Diagnosis [facility] [address], [place] [address] 267[address] Mar, [facility] [id number] [place] [address] 15703- 5766 Feb, Back pain M54.9 [facility] [address], [place] [address] 7964 Jan, Back pain M54.9 [facility] [id number] [place] [address] 65242- 3747 Jan, [facility] [address], [place] [address]- 5105 Jan, [facility] [id number] [place] [address] 93029- 6555 Dec, Back pain M54.9 [facility] [id number] [place] [address] 81425- 8500 Dec, [facility] [id number] [place] [address] 31670- 6701 Dec, Upper respiratory tract infection, unspecified type J06.9 [facility] [id number] [place] [address] 36374- 3222 Dec, [facility] [id number] [place] [address] 66691 -5961 Dec, Acute suppurative otitis media of right ear without spontaneous rupture of tympanic membrane, recurrence not specified H66.001 and Acute nasopharyngitis J00 [facility] [id number] [place] [address] 74467- 7493 Dec, Back pain M54.9 [facility] [id number] [place] [address] 13884- 6955 Dec, Foot infection L08.9 and 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 complication E11.49 [facility] [id number] [place] [address] 79889- 1014 Nov, Cellulitis of toe of right foot L03.031 ; Polyneuropathy in diseases classified elsewhere G63 and HTN (hypertension) I10 [facility] [id number] [place] [address] 21725- 9437 Nov, [facility] [id number] [place] [address] 15199- 2336 Nov, [facility] [id number] [place] [address] 18504- 1629 Nov, Back pain M54.9 [facility] [id number] [place] [address] 34521- 3210 Nov, Shortness of breath R06.02 [facility] [address], [place] [address] 1983 Nov, [facility] [address], [place] [address]- 0590 Oct, [facility] [address], [place] [address]- 7525 Oct, [facility] [id number] [place] [address] 04579- 5698 Oct, [facility] [address], [place] [address]- 2359 Oct, [facility] [id number] [place] [address] 87907- 5981 Oct, [facility] [id number] [place] [address] 00577- 8845 Oct, Back pain M54.9 [facility] [id number] [place] [address] 85655- 3602 Oct, Back pain M54.9 [facility] [address], [place] [address]- 0820 Oct, [facility] [address], [place] [address]- 9474 September, [facility] [address], [place] [address]- 6322 September, [facility] [address], [place] [address]- 8276 September, [facility] [address], [place] [address]- 8770 September, 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 complication E11.49 and Hypotension, unspecified hypotension type I95.9 [facility] [address], [place] [address]- 1168 September, [facility] [address], [place] [address]- 3945 September, [facility] [id number] [place] [address] 57355- 7200 September, Back pain M54.9 [facility] [id number] [place] [address] 69917- 5335 Aug, [facility] [id number] [place] [address] 48537- 5055 Aug, Acute cystitis with hematuria N30.01 ; Ulcer of right foot, unspecified ulcer stage L97.519 ; HTN (hypertension) I10 ; COPD (chronic obstructive pulmonary disease) J44.9 and DM neuro manif type II E11.49 [facility] [id number] [place] [address] 28568- 7436 Aug, Back pain M54.9 [facility] [id number] [place] [address] 99360- 7707 Jul, [facility] [id number] [place] [address] 34805- 0097 Jul, Back pain M54.9 [facility] [id number] [place] [address] 12588- 3680 Jul, [facility] [id number] [place] [address] 25472- 1039 Jul, DM neuro manif type II E11.49 and Ulcer of right foot, unspecified ulcer stage L97.519 [facility] [id number] [place] [address] 21043- 7641 Jun, [facility] [id number] [place] [address] 59989- 7184 Jun, [facility] [id number] [place] [address] 46504- 3811 May, 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 complication E11.49 ; GERD (gastroesophageal reflux disease) K21.9 and PAD ( peripheral artery disease) I73.9 [facility] [address] [place] [address]- 4092 May, Decubital ulcer L89.90 ; Diabetes E11.9 and GERD ( gastroesophageal reflux disease) K21.9 [facility] [id number] [place] [address] 72638- 5768 May, [facility] [id number] [place] [address] 20785- 3382 Apr, [facility] [address] 68042- 6260 Mar, [facility] [id number] [place] [address] 54068- 7106 Mar, [facility] [id number] [place] [address] 32917- 0779 Feb, [facility] [id number] [place] [address] 81084- 4410 Feb, [facility] [id number] [place] [address] 51355- 1820 Jan, [facility] [id number] [place] [address] 41168- 2574 Jan, HTN (hypertension) I10 [facility] [id number] [place] [address] 62437- 4513 Jan, [facility] [id number] [place] [address] 23549- 2971 Dec, Back pain M54.9 [facility] [id number] [place] [address] 57445- 8452 Dec, Back pain M54.9 [facility] [id number] [place] [address] 81715 -0267 Dec, Encounter for immunization Z23 and Puncture wound of right foot, initial encounter S91.331A [facility] [id number] [place] [address] 62926- 9281 Dec, [facility] [address], [place] [address]- 4725 Nov, [facility] [id number] [place] [address] 49302- 0730 Nov, COPD (chronic obstructive pulmonary disease) J44.9 [facility] [id number] [place] [address] 19892- 0601 Nov, [facility] [id number] [place] [address] 81883- 7151 Oct, [facility] [id number] [place] [address] 12362- 6743 Oct, [facility] [id number] [place] [address] 89419- 5243 September, Onychomycosis B35.1 and DM neuro manif type II E11.49 [facility] [id number] [place] [address] 59039- 4078 September, [facility] [id number] [place] [address] 43372- 2068 Aug, [facility] [id number] [place] [address] 16512- 8471 Jul, Sinusitis, unspecified chronicity, unspecified location J32.9 and Cough R05 [facility] [id number] [place] [address] 49878- 5154 Jul, Back pain M54.9 [facility] [id number] [place] [address] 65835- 0464 14 Jun, 2016 Back pain M54.9 [facility] [id number] [place] [address] 58380- 7778 06 Jun, 2016 COPD (chronic obstructive pulmonary disease) J44.9 [facility] [id number] [place] [address] 40949- 8398 May, [facility] [id number], [place] [address]- 8251 May, [facility] [address], [place] [address]- 8176 May, Back pain M54.9 [facility] [id number] [place] [address] 72211- 9118 16 May, 2016 [facility] [id number] [place] [address] 79754- 0586 May, [facility] [id number] [place] [address] 40185- 4760 12 May, 2016 Diabetes E11.9 [facility] [id number] [place] [address] 01357- 6240 11 May, 2016 Diabetes E11.9 ; GERD [...] Need for hepatitis C screening test Z11.59 [facility] [id number] [place] [address] 96955- 5548 May, HTN (hypertension) I10 [facility] [address], [place] [address]- 1951 Apr, [facility] [id number] [address]- 5306 Apr, [facility] [address], [place] [address]- 8399 Apr, [facility] [address], [place] [address]- 4674 Apr, [facility] [address], [place] [address]- 0607 Apr, [facility] [id number] [place] [address] 18936- 5610 Mar, [facility] [id number] [place] [address] 86863- 4004 Mar, [facility] [id number] [place] [address] 86202- 2155 Mar, [facility] [address] 66186- 1765 Mar, [facility] [address] 40628- 0431 Mar, Dental examination Z01.20 [facility] [address] 92959- 9012 Feb, [facility] [id number] [place] [address] 70453- 2177 Feb, [facility] [address] 38873- 7124 Feb, Back pain M54.9 [facility] [id number] [place] [address] 63323- 6887 Jan, [facility] [id number] [place] [address] 90772- 1832 Jan, [facility] [id number] [place] [address] 80020- 5352 Dec, Diabetes E11.9 ; GERD (gastroesophageal reflux disease) K21.9 ; ED (erectile dysfunction) N52.9 ; HTN (hypertension) I10 ; Insomnia G47.00 ; COPD (chronic obstructive pulmonary disease) J44.9 ; Neuropathy G62.9 and Bipolar depression F31.30 [facility] [id number] [place] [address] 88133- 2853 Dec, 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 complication E11.49 and Onychomycosis B35.1 [facility] [id number] [place] [address] 62099- 5893 Dec, [facility] [address] [facility] [id number] [place] [address]- 2324 Dec, [facility] [address] [facility] [id number] [place] [address]- 8017 Dec, [facility] [address] [facility] [id number] [place] [address]- 6873 Dec, [facility] [address] [facility] [id number] [place] [address]- 6396 Nov, [facility] [address] [facility] [id number] [place] [address]- 4987 Nov, [facility] [address] [facility] [id number] [place] [address]- 2388 Oct, [facility] [id number] [place] [address], [place] [address]- 9825 Oct, [facility] [id number] [place] [address] 41299- 6842 Oct, Back pain M54.9 [facility] [address], [place] [address]- 9897 Oct, [facility] [address], [place] [address]- 4542 Oct, [facility] [address], [place] [address]- 1931 Oct, [facility] [address], [place] [address]- 3807 Oct, HTN (hypertension) I10 [facility] [address], [place] [address]- 5129 Oct, Back pain M54.9 [facility] [address], [place] [address]- 4653 Oct, Chronic pain syndrome G89.4 [facility] [address], [place] [address]- 3460 September, Back pain M54.9 [facility] [id number] [place] [address] 09844- 0578 September, HTN (hypertension) I10 [facility] [id number] [place] [address] 81160- 5813 29 Aug, 2015 Porokeratosis Q82.8 ; Onychomycosis B35.1 and 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 complication E11.49 [facility] [id number] [place] [address] 33285- 6814 Aug, GERD (gastroesophageal reflux disease) K21.9 ; Diabetes E11.9 ; HTN (hypertension) I10 ; Insomnia G47.00 ; Restless legs syndrome G25.81 ; COPD (chronic obstructive pulmonary disease) J44.9 ; Back pain M54.9 and Bipolar 1 disorder F31.9 [facility] [id number] [place] [address] 29169- 7690 Aug, [facility] [id number] [place] [address] 50669- 0975 Aug, [facility] [id number] [place] [address] 51392- 8774 Aug, [facility] [id number] [place] [address] 64008- 9795 Aug, [facility] [id number] [place] [address] 79934- 1138 31 Jul, 2015 [facility] [id number] [place] [address] 15316- 1056 31 Jul, 2015 [facility] [id number] [place] [address] 52126- 3556 30 Jul, 2015 [facility] [id number] [place] [address] 060172- 3418 16 Jul, 2015 [facility] [id number] [place] [address] 55880- 6826 15 Jul, 2015 [facility] [address], [place] [address]- 7090 Jul, [facility] [id number] [place] [address] 26996- 2849 Jun, Decubital ulcer L89.90 ; Diabetes E11.9 ; Back pain M54.9 ; HTN (hypertension) I10 and COPD (chronic obstructive pulmonary disease) J44.9 [facility] [id number] [place] [address] 07743- 5192 Jun, [facility] [id number] [place] [address] 79681- 9680 Jun, [facility] [id number] [place] [address] 77371- 9118 Jun, [facility] [id number] [place] [address] 78836- 9933 Jun, [facility] [id number] [place] [address] 94289- 2372 Jun, Diabetes E11.9 ; Insomnia G47.00 ; Decubital ulcer L89.90 ; GERD (gastroesophageal reflux disease) K21.9 ; Back pain M54.9 ; Superficial fungus infection of skin B36.9 and HTN (hypertension) I10 [address] [id number] [id number] Jun, Dental examination Z01.20 [facility] [address], [place] [address]- 0351 May, [facility] [address], [place] [address]- 2501 May, [facility] [id number] [place] [address] 79134- 6848 May, [facility] [address], [place] [address]- 8703 May, Diabetes E11.9 ; HTN (hypertension) I10 and Decubital ulcer L89.90 [facility] [id number] [place] [address] 28633- 7108 May, HTN (hypertension) I10 ; Decubital ulcer L89.90 and Diabetes E11.9 [facility] [id number] [place] [address] 84019- 4207 Apr, Diabetes E11.9 ; GERD (gastroesophageal reflux disease) K21.9 ; Back pain M54.9 ; HTN (hypertension) I10 ; Restless legs syndrome G25.81 and Decubital ulcer L89.90 [facility] [id number] [place] [address] 27951- 5410 Apr, [facility] [id number] [place] [address] 16199- 8685 Apr, Diabetes E11.9 ; HTN (hypertension) I10 ; Restless legs syndrome G25.81 ; GERD (gastroesophageal reflux disease) K21.9 and COPD ( chronic obstructive pulmonary disease) J44.9 [facility] [id number] [place] [address] 50950- 1372 Mar, [facility] [address] 98786- 3124 Mar, [facility] [id number] [place] [address] 80641- 7070 Mar, Diabetes E11.9 ; Abscess L02.91 and Restless legs syndrome G25.81 [facility] [id number] [place] [address] 40239- 9433 Mar, [facility] [id number] [place] [address] 75552- 4474 Feb, GERD (gastroesophageal reflux disease) K21.9 ; Back pain M54.9 ; ED (erectile dysfunction) N52.9 ; Diabetes E11.9 ; HTN (hypertension) I10 and Insomnia G47.00 [facility] [id number] [place] [address] 85606- 6204 Feb, [facility] [id number] [place] [address] 50599- 7190 Feb, [facility] [id number] [place] [address] 98471- 9430 Jan, [facility] [id number] [place] [address] 40917- 1090 Jan, Diabetes 250.00 ; Nondependent cannabis abuse, continuous 305.21 ; Cough 786.2 ; Schizoaffective disorder, unspecified 295.70 ; Sciatica 724.3 ; Other, mixed, or unspecified nondependent drug abuse, unspecified 305.90 ; Chronic pain 338.29 ; GERD (gastroesophageal reflux disease) 530.81 and HTN (hypertension) 401.9 [facility] [id number] [place] [address] 80926- 4186 Jan, [facility] [address] 71530- 5249 Jan, [facility] [id number] [place] [address] 67995- 4232 Jan, Chronic pain associated with significant psychosocial dysfunction 338.4 ; Diabetes mellitus without mention of complication, type I [ juvenile type], uncontrolled 250.03 ; Benign essential hypertension 401.1 ; Schizoaffective disorder, unspecified 295.70 ; Wheezing 786.07 ; Ear ache 388.70 ; Cough 786.2 ; Sciatica 724.3 and Foot pain, bilateral 729.5 [facility] [id number] [place] [address] 45133- 4636 Dec, [facility] [id number] [place] [address] 71883- 8080 Dec, [facility] [id number] [place] [address] 59555- 3549 Dec, [facility] [id number] [place] [address] 06371- 1544 Dec, [facility] [id number] [place] [address] 97721- 0143 Dec, [facility] [address], [place] [address]- 9135 Nov, Elevated liver enzymes 790.5 [facility] [id number], [place] [address]- 3558 Nov, [facility] [id number] [place] [address] 88824- 6665 Nov, [facility] [id number] [place] [address] 59353- 9219 Nov, [facility] [id number] [place] [address] 60247- 1743 Nov, Benign essential hypertension 401.1 ; Diabetes mellitus without mention of complication, type I [juvenile type], uncontrolled 250.03 and Nondependent cannabis abuse, continuous 305.21 [facility] [id number] [place] [address] 34233- 6779 Oct, Cellulitis 682.9 and Benign essential hypertension 401.1 [facility] [id number] [place] [address] 27016- 8013 Oct, [facility] [id number] [place] [address] 44885- 8509 September, [facility] [address], [place] [address]- 5553 September, [facility] [id number] [place] [address] 60424- 8687 Aug, [facility] [address], [place] [address]- 0942 Aug, [facility] [id number] [place] [address] 88216- 1994 Aug, [facility] [address], [place] [address]- 5068 Aug, [facility] [id number] [place] [address]- 1272 Jul, [facility] [place] [facility] [address] [id number] [place] [address]- 6839 Jul, [facility] [place] [facility] [address] [id number] [place] [address] Jul, [facility] [place] [facility] [address] [id number] [place] [address] Jul, [facility] [place] [facility] [address] [id number] [place] [address] Jul, [facility] [place] [facility] [address] [id number] [place] [address] Jul, [facility] [place] [facility] [address] [id number] [place] [address] Jun, [facility] [place] [facility] [address] [id number] [place] [address] Jun, [facility] [place] [facility] [address] [id number] [place] [address] Jun, [facility] [place] [facility] [address] [id number] [place] [address] Jun, [facility] [place] [facility] [address] [facility] [id number] [place] [address] Jun, [facility] [place] [facility] [address] [id number] [place] [address] May, [facility] [place] [facility] [address] [id number] [place] [address] May, [facility] [place] [facility] [address] [id number] [place] [address] May, [facility] [place] [facility] [address] [id number] [place] [address] May, [facility] [place] [facility] [address] [id number] [place] [address] May, [facility] [place] [facility] [address] [id number] [place] [address] May, [facility] [place] [facility] [address] [id number] [place] [address] May, [facility] [place] [facility] [address] [id number] [place] [address] May, [facility] [place] [facility] [address] [id number] [place] [address] Apr, [facility] [place] [facility] [address] [id number] [place] [address] Apr, [facility] [place] [facility] [address] [id number] [place] [address] Apr, [facility] [place] [facility] [address] [id number] [place] [address] Apr, [facility] [place] [facility] [address] [id number] [place] [address] Mar, [facility] [place] [facility] [address] [id number] [place] [address] Mar, [facility] [place] [facility] [address] [id number] [place] [address] Mar, [facility] [place] [facility] [address] [id number] [place] [address] Mar, [facility] [place] [facility] [address] [id number], [place] [address] Feb, [facility] [place] [facility] [address] [id number] [place] [address] Feb, [facility] [place] [facility] [address] [id number] [place] [address] Feb, [facility] [place] [facility] [address] [id number] [place] [address] Feb, [facility] [place] [facility] [address] [id number] [place] [address] Feb, [facility] [place] [facility] [address] [id number] [place] [address]60 Feb, [facility] [place] [facility] [address] [id number] [place] [address] Jan, [facility] [place] [facility] [address] [id number] [place] [address] Jan, [facility] [place] [facility] [address] [id number] [place] [address] Jan, [facility] [place] [facility] [address] [id number] [place] [address] Jan, [facility] [place] [facility] [address] [id number] [place] [address] 2004 Dec, [facility] [place] [facility] [address] [id number] [place] [address] Dec, [facility] [place] [facility] [address] [id number] [place] [address]- [address] Dec, [facility] [place] [facility] [address] [id number] [place] [address]37 Dec, [facility] [place] [facility] [address] [id number] [place] [address] 8616 Dec, [facility] [place] [facility] [address] [id number] [place] [address] Dec, [facility] [place] [facility] [address] [id number], [place] [address] Oct, [facility] [place] [facility] [address] [id number] [place] [address] Oct, [facility] [place] [facility] [address] [id number] [place] [address]- [address] September, [facility] [place] [facility] [address] [id number] [place] [address] September, [facility] [place] [facility] [address] [id number] [place] [address] September, [facility] [place] [facility] [address] [id number] [place] [address] September, [facility] [place] [facility] [address] [id number] [place] [address]- 7067 September, [facility] [place] [facility] [address] [id number] [place] [address] September, [facility] [place] [facility] [address] [id number] [place] [address] Aug, [facility] [place] [facility] [address] [id number] [place] [address] 132[address] Aug, [facility] [place] [facility] [address] [id number] [place] [address]- [address] Aug, [facility] [place] [facility] [address] [id number] [place] [address] 36[address] Aug, [facility] [place] [facility] [address] [id number] [place] [address] Jul, [facility] [place] [facility] [address] [id number] [place] [address] Jul, [facility] [place] [facility] [address] [id number] [place] [address] Jun, [facility] [place] [facility] [address] [id number] [place] [address]- [address] Jun, [facility] [place] [facility] [address] [id number] [place] [address] May, [facility] [place] [facility] [address] [id number] [place] [address]- [address] May, [facility] [place] [facility] [address] [id number] [place] [address] Jan, [facility] [place] [facility] [address] [id number] [place] [address] Dec, [facility] [address] [id number] [place] [address] Jun, [facility] [address] [id number] [place] [address]- [address] May, [facility] [address] [id number] [place] [address] Nov, [facility] [place] [facility] [address] [id number] [place] [address] September, [facility] [address] [id number] [place] [address]- [address] Aug, [facility] [place] [facility] [address] [id number] [place] [address] Aug, [facility] [address] [id number] [place] [address] Aug, [facility] [address] [id number] [place] [address] 89[address] Aug, [facility] [address] [id number] [place] [address] Nov, [facility] [address] [id number] [place] [address] Oct, [facility] [address] [id number] [place] [address] Jul, [facility] [place] [facility] [address] [id number] [place] [address] Feb, [facility] [place] [facility] [address] [id number] [place] [address] Feb, [facility] [place] [facility] [address] [id number] [place] [address]- [address] Apr, [facility] [place] [facility] [address] [id number] [place] [address]- 57[address] Apr, [facility] [place] [facility] [address] [facility] [id number] [place] [id number] Feb, [facility] [address] [facility] [id number] [place] [address]- [address] Feb, [facility] [address] [facility] [id number] [place] [address] Jul, IMMUNIZATIONS No Known Immunizations SOCIAL HISTORY Never Assessed REASON FOR VISIT Controlled Med Refill 03/05 PLAN OF CARE VITAL SIGNS MEDICATIONS Medication Instructions Dosage Frequency Start Date End Date Duration Status Hydrocodone-Ibuprofen 7.5-200 MG Orally 3 times a day 1 tablet as needed 8h Feb, 28 days Active RESULTS No Results PROCEDURES [...]
--- OUTSIDE RECORDS SUMMARY | 2018-09-15 22:26 | XMS REPORT ---
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 Name Role Phone YVES BLEVINS Unavailable PROBLEMS Type Condition ICD9-CM Code DFO69-VR Code Onset Dates Condition Status SNOMED Code Problem HTN (hypertension) I10 Active 21590566 Problem Restless legs syndrome G25.81 Active 461618425 Problem GERD (gastroesophageal reflux disease) K21.9 Active 291068479 Problem Chronic hepatitis C without hepatic coma B18.2 Active 400046250 Problem ED (erectile dysfunction) N52.9 Active 507735253 Problem PAD (peripheral artery disease) I73.9 Active 829628234 Problem Ulcer of right foot, unspecified ulcer stage L97.519 Active 74881761 Problem 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 876647606 Problem COPD (chronic obstructive pulmonary disease) J44.9 Active 41608110 Problem DM neuro manif type II E11.49 Active 85374710 Problem Sinusitis, unspecified chronicity, unspecified location J32.9 Active 03213931 ALLERGIES No Information ENCOUNTERS Encounter Location Date Diagnosis [facility] [address], [place] [address] Jan, Back pain M54.9 [facility] [address], [place] [address] 3[address] Jan, [facility] [address], [place] [address] Jan, [facility] [id number] [place] [address] 20090- 0654 Dec, Back pain M54.9 [facility] [address], [place] [address] 6[address] Dec, [facility] [id number] [place] [address] 81044- 1724 Dec, Upper respiratory tract infection, unspecified type J06.9 [facility] [id number] [place] [address] 19475- 2642 Dec, [facility] [id number] [place] [address] 52956 -5595 Dec, Acute suppurative otitis media of right ear without spontaneous rupture of tympanic membrane, recurrence not specified H66.001 and Acute nasopharyngitis J00 [facility] [id number] [place] [address] 28371- 4310 Dec, Back pain M54.9 [facility] [id number] [place] [address] 41930- 8851 Dec, Foot infection L08.9 and 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 complication E11.49 [facility] [address] 34772- 3273 Nov, Cellulitis of toe of right foot L03.031 ; Polyneuropathy in diseases classified elsewhere G63 and HTN (hypertension) I10 [facility] [id number] [place] [address] 98598- 9744 Nov, [facility] [id number] [place] [address] 90689- 8129 Nov, [facility] [id number] [place] [address] 11428- 9736 Nov, Back pain M54.9 [facility] [id number] [place] [address] 66138- 4228 Nov, Shortness of breath R06.02 [facility] [id number] [place] [address] 57133- 2849 Nov, [facility] [id number] [place] [address] 23494- 5372 Oct, [facility] [address] [place] [address]- 5950 Oct, [facility] [id number] [place] [address] 76131- 3174 Oct, [facility] [address], [place] [address]- 0782 Oct, [facility] [id number] [place] [address] 69015- 8643 Oct, [facility] [id number] [place] [address] 26898- 6951 Oct, Back pain M54.9 [facility] [id number] [place] [address] 98739- 7498 Oct, Back pain M54.9 [facility] [id number] [place] [address] 91925- 5201 Oct, [facility] [id number] [place] [address] 64089- 1672 September, [facility] [id number] [place] [address] 42979- 4595 September, [facility] [id number] [place] [address] 33157- 8983 September, [facility] [id number] [place] [address] 74001- 7471 September, 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 complication E11.49 and Hypotension, unspecified hypotension type I95.9 [facility] [address], [place] [address] September, [facility] [id number] [place] [address] 57984- 8255 September, [facility] [address], [place] [address]- 3013 September, Back pain M54.9 [facility] [address] [place] [address] 07143- 0040 Aug, [facility] [id number] [place] [address] 34996- 9976 Aug, Acute cystitis with hematuria N30.01 ; Ulcer of right foot, unspecified ulcer stage L97.519 ; HTN (hypertension) I10 ; COPD (chronic obstructive pulmonary disease) J44.9 and DM neuro manif type II E11.49 [place] [address] 38211- 5690 Aug, Back pain M54.9 [place] [address] 09520- 4813 Jul, [facility] [address] 72656- 6587 Jul, Back pain M54.9 [facility] [address] 62936- 6357 Jul, [place] [facility] [address] 48013- 6119 Jul, DM neuro manif type II E11.49 and Ulcer of right foot, unspecified ulcer stage L97.519 [place] [address] 65086- 4105 Jun, [facility] [address] 73920- 2333 Jun, [facility] [address] 66288- 4755 May, 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 complication E11.49 ; GERD (gastroesophageal reflux disease) K21.9 and PAD ( peripheral artery disease) I73.9 [facility] [facility] [address] 14161- 2610 May, Decubital ulcer L89.90 ; Diabetes E11.9 and GERD ( gastroesophageal reflux disease) K21.9 [place] [address] 19724- 5040 May, [facility] [address], [place] [address]- 7803 Apr, [facility] [id number] [place] [address] 59034- 7716 Mar, [facility] [id number] [place] [address] 52969- 4799 Mar, [facility] [id number] [place] [address] 65366- 8489 Feb, [facility] [id number] [place] [address] 06329- 4696 Feb, [facility] [id number] [place] [address] 73352- 1113 Jan, [facility] [id number] [place] [address] 50070- 8177 Jan, HTN (hypertension) I10 [facility] [id number] [place] [address] 21770- 0098 Jan, [facility] [id number] [place] [address] 33268- 0875 Dec, Back pain M54.9 [facility] [id number] [place] [address] 10685- 9144 Dec, Back pain M54.9 [facility] [id number] [place] [address] 10109 -1951 Dec, Encounter for immunization Z23 and Puncture wound of right foot, initial encounter S91.331A [facility] [id number] [place] [address] 58842- 2542 Dec, [facility] [id number] [place] [address] 38899- 4071 Nov, [facility] [address] [place] [address] 74894- 3837 Nov, COPD (chronic obstructive pulmonary disease) J44.9 [facility] [address], [place] [address]- 6458 Nov, [facility] [id number] [place] [address] 26455- 9933 Oct, [facility] [id number] [place] [address] 68960- 0412 Oct, [facility] [id number] [place] [address] 72406- 6833 September, Onychomycosis B35.1 and DM neuro manif type II E11.49 [facility] [id number] [place] [address] 60500- 9933 September, [facility] [id number] [place] [address] 72163- 9912 Aug, [facility] [id number] [place] [address] 30665- 8728 Jul, Sinusitis, unspecified chronicity, unspecified location J32.9 and Cough R05 [facility] [id number] [place] [address] 32496- 9419 Jul, Back pain M54.9 [facility] [id number] [place] [address] 16004- 1648 14 Jun, 2016 Back pain M54.9 [facility] [id number] [place] [address] 35797- 1705 06 Jun, 2016 COPD (chronic obstructive pulmonary disease) J44.9 [facility] [address], [place] [address]- 9908 May, [facility] [id number] [place] [address] 91882- 0236 May, [facility] [id number] [place] [address] 14721- 8426 May, Back pain M54.9 [facility] [address], [place] [address]- 5822 16 May, 2016 [facility] [id number] [place] [address] 27452- 2903 May, [facility] [id number] [place] [address] 84466- 3953 May, Diabetes E11.9 [facility] [id number] [place] [address] 51283- 8575 11 May, 2016 Diabetes E11.9 ; GERD [...] Need for hepatitis C screening test Z11.59 [facility] [id number] [place] [address] 95847- 4063 May, HTN (hypertension) I10 [facility] [id number] [place] [address] 85032- 1682 Apr, [facility] [id number] [place] [address] 83956- 4335 Apr, [facility] [address], [place] [address]- 7458 Apr, [facility] [address], [place] [address]- 5725 Apr, [facility] [address], [place] [address]- 8795 Apr, [facility] [id number] [place] [address] 25217- 5485 Mar, [facility] [address], [place] [address]- 2799 Mar, [facility] [id number] [place] [address] 82447- 8415 Mar, [facility] [id number] [place] [address] 45463- 2528 Mar, [facility] [address] 65558- 9565 Mar, Dental examination Z01.20 [facility] [address] 20660- 5273 Feb, [facility] [address] 48571- 7051 Feb, [place] [address] 54088- 6397 Feb, Back pain M54.9 [place] [address] 22282- 2842 Jan, [facility] [address] 13079- 9791 Jan, [facility] [address] 09454- 7799 Dec, Diabetes E11.9 ; GERD (gastroesophageal reflux disease) K21.9 ; ED (erectile dysfunction) N52.9 ; HTN (hypertension) I10 ; Insomnia G47.00 ; COPD (chronic obstructive pulmonary disease) J44.9 ; Neuropathy G62.9 and Bipolar depression F31.30 [facility] [id number] [place] [address] 86907- 6034 Dec, 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 complication E11.49 and Onychomycosis B35.1 [facility] [id number] [place] [address] 08560- 9746 Dec, [facility] [address] 52545- 1757 Dec, [facility] [id number] [place] [address] 39709- 3375 Dec, [place] [address] [facility] [id number], [place] [address]- 1009 Dec, [facility] [address] [facility] [id number], [place] [address]- 7765 Nov, [facility] [address] [facility] [id number], [place] [address]- 7701 Nov, [facility] [address] [facility] [id number], [place] [address]- 8260 Oct, [facility] [address] [facility] [id number], [place] [address]- 0588 Oct, [facility] [address] [facility] [id number], [place] [address]- 2337 Oct, Back pain M54.9 [facility] [address], [place] [address]- 4674 Oct, [facility] [id number], [place] [address]- 9333 Oct, [facility] [id number], [place] [address]- 6605 Oct, [facility] [address], [place] [address]- 8112 Oct, HTN (hypertension) I10 [facility] [address], [place] [address]- 5583 Oct, Back pain M54.9 [facility] [id number], [place] [address]- 1843 Oct, Chronic pain syndrome G89.4 [facility] [id number], [place] [address]- 2639 September, Back pain M54.9 [facility] [id number], [place] [address]- 0955 September, HTN (hypertension) I10 [facility] [address], [place] [address]- 0846 Aug, Porokeratosis Q82.8 ; Onychomycosis B35.1 and 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 complication E11.49 [facility] [id number] [place] [address] 42950- 2805 Aug, GERD (gastroesophageal reflux disease) K21.9 ; Diabetes E11.9 ; HTN (hypertension) I10 ; Insomnia G47.00 ; Restless legs syndrome G25.81 ; COPD (chronic obstructive pulmonary disease) J44.9 ; Back pain M54.9 and Bipolar 1 disorder F31.9 [facility] [id number] [place] [address] 51079- 0685 Aug, [facility] [id number] [place] [address] 81515- 7753 Aug, [facility] [id number] [place] [address] 82385- 3783 Aug, [facility] [id number] [place] [address] 87083- 7003 Aug, [facility] [id number] [place] [address] 11229- 0069 Jul, [facility] [id number] [place] [address] 20245- 3466 Jul, [facility] [address], [place] [address]- 2620 30 Jul, 2015 [facility] [address], [place] [address]- 5352 16 Jul, 2015 [facility] [address], [place] [address]- 2983 15 Jul, 2015 [facility] [address] [place] [address] 501934- 4207 Jul, [facility] [address], [place] [address]- 6059 Jun, Decubital ulcer L89.90 ; Diabetes E11.9 ; Back pain M54.9 ; HTN (hypertension) I10 and COPD (chronic obstructive pulmonary disease) J44.9 [facility] [address], [place] [address]- 7409 Jun, [facility] [address], [place] [address]- 9505 Jun, [facility] [id number] [place] [address] 41909- 3284 Jun, [facility] [address] [place] [address] 73230- 2703 Jun, [facility] [address] [place] [address] 62985- 9891 Jun, Diabetes E11.9 ; Insomnia G47.00 ; Decubital ulcer L89.90 ; GERD (gastroesophageal reflux disease) K21.9 ; Back pain M54.9 ; Superficial fungus infection of skin B36.9 and HTN (hypertension) I10 [address] [id number] [id number] Jun, Dental examination Z01.20 [place] [address], [place] [address]- 4426 May, [place] [address], [place] [address]- 8141 May, [place] [address], [place] [address]- 7806 May, [place] [address] [place] [address] 44656- 7721 May, Diabetes E11.9 ; HTN (hypertension) I10 and Decubital ulcer L89.90 [facility] [address], [place] [address]- 4002 May, HTN (hypertension) I10 ; Decubital ulcer L89.90 and Diabetes E11.9 [place] [id number] [place] [address] 35994- 9567 30 Apr, 2015 Diabetes E11.9 ; GERD (gastroesophageal reflux disease) K21.9 ; Back pain M54.9 ; HTN (hypertension) I10 ; Restless legs syndrome G25.81 and Decubital ulcer L89.90 [place] [address] 66248- 7259 17 Apr, 2015 [place] [address] 13866- 7066 Apr, Diabetes E11.9 ; HTN (hypertension) I10 ; Restless legs syndrome G25.81 ; GERD (gastroesophageal reflux disease) K21.9 and COPD ( chronic obstructive pulmonary disease) J44.9 [place] [address] 59607- 9094 Mar, [address] 53069- 0643 Mar, [place] [address] 04682- 2396 Mar, Diabetes E11.9 ; Abscess L02.91 and Restless legs syndrome G25.81 [place] [address] 84815- 6073 Mar, [place] [address] 92625- 5742 Feb, GERD (gastroesophageal reflux disease) K21.9 ; Back pain M54.9 ; ED (erectile dysfunction) N52.9 ; Diabetes E11.9 ; HTN (hypertension) I10 and Insomnia G47.00 [place] [address] 21394- 7891 Feb, [place] [address] 87286- 9810 Feb, [place] [address] 07928- 6697 Jan, [place] [place] [id number] [place] [address] 27473- 5352 Jan, Diabetes 250.00 ; Nondependent cannabis abuse, continuous 305.21 ; Cough 786.2 ; Schizoaffective disorder, unspecified 295.70 ; Sciatica 724.3 ; Other, mixed, or unspecified nondependent drug abuse, unspecified 305.90 ; Chronic pain 338.29 ; GERD (gastroesophageal reflux disease) 530.81 and HTN (hypertension) 401.9 [facility] [address] 19697- 7982 Jan, [facility] [address] 70046- 4393 Jan, [place] [address] 50634- 6098 Jan, Chronic pain associated with significant psychosocial dysfunction 338.4 ; Diabetes mellitus without mention of complication, type I [ juvenile type], uncontrolled 250.03 ; Benign essential hypertension 401.1 ; Schizoaffective disorder, unspecified 295.70 ; Wheezing 786.07 ; Ear ache 388.70 ; Cough 786.2 ; Sciatica 724.3 and Foot pain, bilateral 729.5 [place] [id number] [place] [address] 06049- 2826 Dec, [place] [id number] [place] [address] 70765- 6441 Dec, [place] [id number] [place] [address] 75316- 8816 Dec, [place] [id number] [place] [address] 67670- 6823 Dec, [place] [address] 24724- 2231 Dec, [facility] [address] 89931- 7435 Nov, Elevated liver enzymes 790.5 [place] [address] [place] [address]- 9961 Nov, [facility] [address], [place] [address]- 9550 Nov, [facility] [id number] [place] [address] 06216- 1593 Nov, [facility] [id number] [place] [address] 79751- 1360 Nov, Benign essential hypertension 401.1 ; Diabetes mellitus without mention of complication, type I [juvenile type], uncontrolled 250.03 and Nondependent cannabis abuse, continuous 305.21 [facility] [id number] [place] [address] 15471- 3989 Oct, Cellulitis 682.9 and Benign essential hypertension 401.1 [facility] [id number] [place] [address] 59297- 0182 Oct, [facility] [id number] [place] [address] 49507- 4102 September, [facility] [address] [place] [address] 89278- 5407 September, [facility] [id number] [place] [address] 70544- 0304 Aug, [facility] [address], [place] [address]- 6430 Aug, [facility] [address] [place] [address] 55929- 6099 Aug, [facility] [address], [place] [address]- 6509 Aug, [facility] [id number] [place] [address] 83334- 0751 Jul, [facility] [address], [place] [address]- 8111 Jul, [facility] [id number] [place] [address] 91442- 2165 Jul, [facility] [place] [facility] [address] [id number] [place] [address]- 8916 Jul, [facility] [place] [facility] [address] [id number] [place] [address]- 8692 Jul, [facility] [place] [facility] [address] [id number] [place] [address]- 9723 Jul, [facility] [place] [facility] [address] [id number] [place] [address]- 1752 Jun, [facility] [place] [facility] [address] [id number] [place] [address]- 4260 Jun, [facility] [place] [facility] [address] [id number] [place] [address]- 4932 Jun, [facility] [place] [facility] [address] [id number] [place] [address]- 5353 Jun, [facility] [place] [facility] [address] [id number] [place] [address]- 8246 Jun, [facility] [place] [facility] [address] [id number] [place] [address] May, [facility] [place] [facility] [address] [id number] [place] [address] May, [facility] [place] [facility] [address] [id number] [place] [address] May, [facility] [place] [facility] [address] [id number] [place] [address] May, [facility] [place] [facility] [address] [id number] [place] [address] May, [facility] [place] [facility] [address] [id number] [place] [address] May, [facility] [place] [facility] [address] [id number], [place] [address] May, [facility] [place] [facility] [address] [id number] [place] [address] May, [facility] [place] [facility] [address] [id number] [place] [address] Apr, [facility] [place] [facility] [address] [id number] [place] [address] Apr, [facility] [place] [facility] [address] [id number] [place] [address] Apr, [facility] [place] [facility] [address] [id number] [place] [address] Apr, [facility] [place] [facility] [address] [id number] [place] [address] Mar, [facility] [place] [facility] [address] [id number] [place] [address] Mar, [facility] [place] [facility] [address] [id number] [place] [address] Mar, [facility] [place] [facility] [address] [id number] [place] [address] Mar, [facility] [place] [facility] [address] [id number] [place] [address] Feb, [facility] [place] [facility] [address] [id number] [place] [address] Feb, [facility] [place] [facility] [address] [id number] [place] [address] Feb, [facility] [place] [facility] [address] [id number] [place] [address] Feb, [facility] [place] [facility] [address] [id number] [place] [address] Feb, [facility] [place] [facility] [address] [id number] [place] [address] Feb, [facility] [place] [facility] [address] [id number] [place] [address] Jan, [facility] [place] [facility] [address] [id number] [place] [address] Jan, [facility] [place] [facility] [address] [id number] [place] [address] Jan, [facility] [place] [facility] [address] [id number] [place] [address] Jan, [facility] [place] [facility] [address] [id number] [place] [address] Dec, [facility] [place] [facility] [address] [id number] [place] [address] Dec, [facility] [place] [facility] [address] [id number] [place] [address] Dec, [facility] [place] [facility] [address] [id number] [place] [address] Dec, [facility] [place] [facility] [address] [id number] [place] [address] Dec, [facility] [place] [facility] [address] [id number] [place] [address] Dec, [facility] [place] [facility] [address] [id number] [place] [address] Oct, [facility] [place] [facility] [address] [id number] [place] [address] Oct, [facility] [place] [facility] [address] [id number] [place] [address] September, [facility] [place] [facility] [address] [id number] [place] [address] September, [facility] [place] [facility] [address] [id number] [place] [address] September, [facility] [place] [facility] [address] [id number] [place] [address] September, [facility] [place] [facility] [address] [id number] [place] [address] September, [facility] [address] [id number] [place] [address] September, [facility] [address] [id number] [place] [address] Aug, [facility] [address] [id number] [place] [address] Aug, [facility] [address] [id number] [place] [address] Aug, [facility] [address] [id number] [place] [address] Aug, [facility] [address] [id number] [place] [address] Jul, [facility] [address] [id number] [place] [address] Jul, [facility] [address] [id number] [place] [address] Jun, [facility] [address] [id number] [place] [address] Jun, [facility] [address] [id number] [place] [address] May, [facility] [address] [id number] [place] [address] May, [facility] [address] [id number] [place] [address] Jan, [facility] [place] [facility] [address] [id number] [place] [address] Dec, [facility] [place] [facility] [address] [id number] [place] [address] Jun, [facility] [place] [facility] [address] [id number] [place] [address] May, [facility] [address] [id number] [place] [address] Nov, [facility] [place] [facility] [address] [id number] [place] [address] September, [facility] [place] [facility] [address] [id number] [place] [address] Aug, [facility] [place] [facility] [address] [id number] [place] [address] Aug, [facility] [address] [id number] [place] [address] Aug, [facility] [place] [facility] [address] [id number] [place] [address] Aug, [facility] [place] [facility] [address] [id number] [place] [address] Nov, [facility] [place] [facility] [address] [id number] [place] [address] Oct, [facility] [place] [facility] [address] [id number] [place] [address] Jul, [facility] [place] [facility] [address] [id number], [place] [address] Feb, [facility] [place] [facility] [address] [id number], [place] [address] Feb, [facility] [place] [facility] [address] [id number], [place] [address] Apr, [facility] [place] [facility] [address] [id number] [place] [address] Apr, [facility] [place] [facility] [address] [id number], [place] [address] Feb, [facility] [place] [facility] [address] [id number] [place] [address] Feb, [facility] [place] [facility] [address] [facility] [id number] [place] [address] 14 Jul, 2008 IMMUNIZATIONS No Known Immunizations SOCIAL HISTORY Never Assessed REASON FOR VISIT Controlled refill request PLAN OF CARE VITAL SIGNS MEDICATIONS Medication Instructions Dosage Frequency Start Date End Date Duration Status Hydrocodone-Ibuprofen 7.5-200 MG Orally 3 times a day 1 tablet as needed 8h 28 Jan, 2018 28 days Active RESULTS No Results PROCEDURES [...]
--- OUTSIDE RECORDS SUMMARY | 2018-09-15 22:27 | XMS REPORT ---
Author Author YVES BLEVINS [facility] Address [address] [place] [address] Care Team Providers Care Fitness Sales Associate Name Role Phone YVES BLEVINS Unavailable PROBLEMS Type Condition ICD9-CM Code ITP95-RX Code Onset Dates Condition Status SNOMED Code Problem HTN (hypertension) I10 Active 13500030 Problem Restless legs syndrome G25.81 Active 477308195 Problem GERD (gastroesophageal reflux disease) K21.9 Active 265748730 Problem Chronic hepatitis C without hepatic coma B18.2 Active 190487155 Problem ED (erectile dysfunction) N52.9 Active 107421716 Problem PAD (peripheral artery disease) I73.9 Active 512192927 Problem Ulcer of right foot, unspecified ulcer stage L97.519 Active 35041516 Problem 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 819380738 Problem COPD (chronic obstructive pulmonary disease) J44.9 Active 41973567 Problem DM neuro manif type II E11.49 Active 95778785 Problem Sinusitis, unspecified chronicity, unspecified location J32.9 Active 77790684 ALLERGIES No Information ENCOUNTERS Encounter Location Date Diagnosis [facility] [address] [address] Jan, [facility] [id number] [place] [address] 28335- 4906 Jan, [facility] [address], [place] [address] Jan, [facility] [id number] [place] [address] 16789- 2506 Dec, Back pain M54.9 [facility] [id number] [place] [address] 30155- 6659 Dec, [facility] [id number] [place] [address] 82449- 0706 Dec, Upper respiratory tract infection, unspecified type J06.9 [facility] [address] 79763- 5134 Dec, [facility] [id number] [place] [address] 88914 -7567 Dec, Acute suppurative otitis media of right ear without spontaneous rupture of tympanic membrane, recurrence not specified H66.001 and Acute nasopharyngitis J00 [facility] [address] 48935- 5694 Dec, Back pain M54.9 [facility] [address] 73826- 0999 Dec, Foot infection L08.9 and 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 complication E11.49 [place] [address] 72788- 6885 Nov, Cellulitis of toe of right foot L03.031 ; Polyneuropathy in diseases classified elsewhere G63 and HTN (hypertension) I10 [facility] [address] 60691- 1171 Nov, [facility] [id number] [place] [address] 96919- 9343 Nov, [facility] [address] 99819- 7951 Nov, Back pain M54.9 [facility] [id number] [place] [address] 38097- 6326 Nov, Shortness of breath R06.02 [facility] [address] 90595- 4520 Nov, [facility] [id number] [place] [address] 03511- 3771 Oct, [facility] [address] 84903- 7888 Oct, [facility] [address], [place] [address] 4585 Oct, [facility] [id number], [place] [address] 9479 Oct, [facility] [address], [place] [address] 9208 Oct, [facility] [id number] [place] [address] 70462- 4827 Oct, Back pain M54.9 [facility] [id number] [place] [address] 45799- 6609 Oct, Back pain M54.9 [facility] [id number] [place] [address] 12330- 8611 Oct, [facility] [id number] [place] [address] 88507- 2557 September, [facility] [address], [place] [address]- 4425 September, [facility] [id number], [place] [address]- 1324 September, [facility] [address], [place] [address]- 9832 September, 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 complication E11.49 and Hypotension, unspecified hypotension type I95.9 [facility] [address], [place] [address]- 3390 September, [facility] [address], [place] [address]- 5853 September, [facility] [address], [place] [address]- 5606 September, Back pain M54.9 [facility] [address], [place] [address]- 0257 Aug, [place] [id number] [place] [address] 59713- 9099 Aug, Acute cystitis with hematuria N30.01 ; Ulcer of right foot, unspecified ulcer stage L97.519 ; HTN (hypertension) I10 ; COPD (chronic obstructive pulmonary disease) J44.9 and DM neuro manif type II E11.49 [place] [address] 74360- 7402 Aug, Back pain M54.9 [place] [address] 04684- 1783 Jul, [place] [address] 62063- 2301 Jul, Back pain M54.9 [place] [address] 70732- 9053 Jul, [place] [address] 47825- 3823 Jul, DM neuro manif type II E11.49 and Ulcer of right foot, unspecified ulcer stage L97.519 [place] [address] 99380- 4095 Jun, [place] [address] 92617- 8139 Jun, [place] [address] 11764- 3638 May, 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 complication E11.49 ; GERD (gastroesophageal reflux disease) K21.9 and PAD ( peripheral artery disease) I73.9 [place] [address] 69253- 9787 May, Decubital ulcer L89.90 ; Diabetes E11.9 and GERD ( gastroesophageal reflux disease) K21.9 [place] [address] 56691- 7377 May, [facility] [address], [place] [address]- 7289 Apr, [facility] [id number] [place] [address] 77907- 9643 Mar, [facility] [id number] [place] [address] 55174- 7024 Mar, [facility] [address] 98374- 3170 Feb, [facility] [id number] [place] [address] 14376- 3319 Feb, [facility] [id number] [place] [address] 41660- 3080 Jan, [facility] [id number] [place] [address] 13401- 3534 Jan, HTN (hypertension) I10 [facility] [id number] [place] [address] 50611- 6926 Jan, [facility] [id number] [place] [address] 63999- 5466 Dec, Back pain M54.9 [facility] [id number] [place] [address] 11430- 8590 Dec, Back pain M54.9 [facility] [id number] [place] [address] 59770 -4963 Dec, Encounter for immunization Z23 and Puncture wound of right foot, initial encounter S91.331A [facility] [id number] [place] [address] 99947- 8196 Dec, [facility] [id number] [place] [address] 98397- 2017 Nov, [facility] [id number] [place] [address] 57024- 5574 Nov, COPD (chronic obstructive pulmonary disease) J44.9 [facility] [address], [place] [address]- 9015 Nov, [facility] [id number] [place] [address] 93152- 9775 Oct, [facility] [id number] [place] [address] 32934- 1359 Oct, [facility] [id number] [place] [address] 36660- 9573 September, Onychomycosis B35.1 and DM neuro manif type II E11.49 [facility] [id number] [place] [address] 48775- 7303 September, [facility] [id number] [place] [address] 40071- 7579 Aug, [facility] [id number] [place] [address] 53064- 3436 Jul, Sinusitis, unspecified chronicity, unspecified location J32.9 and Cough R05 [facility] [id number] [place] [address] 95660- 8731 Jul, Back pain M54.9 [facility] [id number] [place] [address] 19319- 7349 14 Jun, 2016 Back pain M54.9 [facility] [id number] [place] [address] 76495- 2773 06 Jun, 2016 COPD (chronic obstructive pulmonary disease) J44.9 [facility] [address], [place] [address]- 4155 May, [facility] [id number] [place] [address] 17886- 2162 May, [facility] [address], [place] [address]- 8080 May, Back pain M54.9 [facility] [id number] [place] [address] 27736- 2996 16 May, 2016 [facility] [address], [place] [address]- 0119 13 May, 2016 [facility] [id number] [place] [address] 28162- 7260 May, Diabetes E11.9 [facility] [id number] [place] [address] 73392- 7313 11 May, 2016 Diabetes E11.9 ; GERD [...] Need for hepatitis C screening test Z11.59 [facility] [id number] [place] [address] 33209- 8949 04 May, 2016 HTN (hypertension) I10 [facility] [id number] [place] [address] 72344- 4902 Apr, [facility] [id number] [place] [address] 10025- 3179 Apr, [facility] [id number] [place] [address] 71934- 4448 Apr, [facility] [id number] [place] [address] 80395- 9555 Apr, [facility] [id number] [place] [address] 22905- 6829 Apr, [facility] [id number] [place] [address] 99809- 7265 Mar, [facility] [id number] [place] [address] 58132- 7367 Mar, [facility] [id number] [place] [address] 75658- 6101 Mar, [facility] [address], [place] [address]- 1122 Mar, [facility] [id number] [place] [address] 70511- 3896 Mar, Dental examination Z01.20 [facility] [id number] [place] [address] 84428- 0259 Feb, [facility] [id number] [place] [address] 73402- 0681 Feb, [facility] [id number] [place] [address] 06386- 7634 Feb, Back pain M54.9 [facility] [id number] [place] [address] 65770- 4113 Jan, [facility] [id number] [place] [address] 98223- 1731 Jan, [facility] [id number] [place] [address] 08860- 8281 Dec, Diabetes E11.9 ; GERD (gastroesophageal reflux disease) K21.9 ; ED (erectile dysfunction) N52.9 ; HTN (hypertension) I10 ; Insomnia G47.00 ; COPD (chronic obstructive pulmonary disease) J44.9 ; Neuropathy G62.9 and Bipolar depression F31.30 [facility] [id number] [place] [address] 29749- 3169 Dec, 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 complication E11.49 and Onychomycosis B35.1 [facility] [id number] [place] [address] 63861- 9152 Dec, [facility] [id number] [place] [address] 78077- 6833 Dec, [facility] [id number] [place] [address] 17246- 0908 Dec, [facility] [id number], [place] [address] 1971 Dec, [facility] [address], [place] [address]- 3232 Nov, [facility] [address] [facility] [id number] [address]- 4843 Nov, [facility] [id number] [place] [address] 42408- 7255 Oct, [facility] [address] [facility] [id number] [place] [address] 46554- 1609 Oct, [facility] [id number] [place] [address] 84780- 5229 Oct, Back pain M54.9 [facility] [address], [place] [address]- 0741 Oct, [facility] [id number] [place] [address] 20019- 9906 Oct, [facility] [address], [place] [address]- 9628 Oct, [facility] [id number] [place] [address] 54775- 7290 Oct, HTN (hypertension) I10 [facility] [address], [place] [address]- 6109 Oct, Back pain M54.9 [facility] [address], [place] [address]- 4897 Oct, Chronic pain syndrome G89.4 [facility] [address], [place] [address]- 3274 September, Back pain M54.9 [facility] [address], [place] [address]- 4879 September, HTN (hypertension) I10 [facility] [address], [place] [address]- 8623 Aug, Porokeratosis Q82.8 ; Onychomycosis B35.1 and 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 complication E11.49 [facility] [id number] [place] [address] 53290- 4780 Aug, GERD (gastroesophageal reflux disease) K21.9 ; Diabetes E11.9 ; HTN (hypertension) I10 ; Insomnia G47.00 ; Restless legs syndrome G25.81 ; COPD (chronic obstructive pulmonary disease) J44.9 ; Back pain M54.9 and Bipolar 1 disorder F31.9 [facility] [id number] [place] [address] 21166- 9179 Aug, [facility] [id number] [place] [address] 28909- 4602 Aug, [facility] [id number] [place] [address] 29820- 5720 Aug, [facility] [id number] [place] [address] 14969- 8770 Aug, [facility] [id number] [place] [address] 60650- 9322 Jul, [facility] [id number] [place] [address] 87884- 4585 Jul, [facility] [id number] [place] [address] 33760- 5120 30 Jul, 2015 [facility] [id number] [place] [address] 88407- 3667 16 Jul, 2015 [facility] [id number] [place] [address] 77488- 2374 15 Jul, 2015 [facility] [id number] [place] [address] 96784- 1866 03 Jul, 2015 [facility] [id number] [place] [address] 40572- 6480 17 Jun, 2015 Decubital ulcer L89.90 ; Diabetes E11.9 ; Back pain M54.9 ; HTN (hypertension) I10 and COPD (chronic obstructive pulmonary disease) J44.9 [facility] [id number] [place] [address] 85214- 4767 Jun, [facility] [id number] [place] [address] 18579- 1430 Jun, [facility] [id number] [place] [address] 95818- 1706 Jun, [facility] [id number] [place] [address] 39193- 1419 Jun, [place] [id number] [place] [address] 04423- 3291 Jun, Diabetes E11.9 ; Insomnia G47.00 ; Decubital ulcer L89.90 ; GERD (gastroesophageal reflux disease) K21.9 ; Back pain M54.9 ; Superficial fungus infection of skin B36.9 and HTN (hypertension) I10 [address] [id number] [id number] Jun, Dental examination Z01.20 [place] [id number] [place] [address] 56956- 8697 May, [place] [id number] [place] [address] 38313- 1155 May, [place] [id number] [place] [address] 41899- 6912 May, [place] [id number] [place] [address] 36591- 8727 May, Diabetes E11.9 ; HTN (hypertension) I10 and Decubital ulcer L89.90 [place] [id number] [place] [address] 33194- 2078 May, HTN (hypertension) I10 ; Decubital ulcer L89.90 and Diabetes E11.9 [place] [id number] [place] [address] 65641- 1412 30 Apr, 2015 Diabetes E11.9 ; GERD (gastroesophageal reflux disease) K21.9 ; Back pain M54.9 ; HTN (hypertension) I10 ; Restless legs syndrome G25.81 and Decubital ulcer L89.90 [facility] [id number] [place] [address] 69749- 9248 17 Apr, 2015 [facility] [address] 13478- 6804 Apr, Diabetes E11.9 ; HTN (hypertension) I10 ; Restless legs syndrome G25.81 ; GERD (gastroesophageal reflux disease) K21.9 and COPD ( chronic obstructive pulmonary disease) J44.9 [place] [address] 57871- 1463 Mar, [place] [id number] [place] [address] 89592- 2768 Mar, [place] [address] 55806- 5015 Mar, Diabetes E11.9 ; Abscess L02.91 and Restless legs syndrome G25.81 [place] [address] 17285- 2602 Mar, [place] [id number] [place] [address] 72677- 5508 Feb, GERD (gastroesophageal reflux disease) K21.9 ; Back pain M54.9 ; ED (erectile dysfunction) N52.9 ; Diabetes E11.9 ; HTN (hypertension) I10 and Insomnia G47.00 [place] [id number] [place] [address] 86241- 5910 Feb, [place] [address] 61701- 0508 Feb, [facility] [id number] [place] [address] 15223- 5060 Jan, [place] [id number] [place] [address] 07463- 5290 Jan, Diabetes 250.00 ; Nondependent cannabis abuse, continuous 305.21 ; Cough 786.2 ; Schizoaffective disorder, unspecified 295.70 ; Sciatica 724.3 ; Other, mixed, or unspecified nondependent drug abuse, unspecified 305.90 ; Chronic pain 338.29 ; GERD (gastroesophageal reflux disease) 530.81 and HTN (hypertension) 401.9 [place] [address] 56766- 5664 Jan, [facility] [address] 34467- 4073 Jan, [place] [address] 08500- 5208 Jan, Chronic pain associated with significant psychosocial dysfunction 338.4 ; Diabetes mellitus without mention of complication, type I [ juvenile type], uncontrolled 250.03 ; Benign essential hypertension 401.1 ; Schizoaffective disorder, unspecified 295.70 ; Wheezing 786.07 ; Ear ache 388.70 ; Cough 786.2 ; Sciatica 724.3 and Foot pain, bilateral 729.5 [place] [address] 57800- 1847 Dec, [place] [address] 35622- 9947 Dec, [place] [address] 25807- 9637 Dec, [place] [address] 94695- 5118 Dec, [place] [address] 49854- 5422 Dec, [facility] [address] 62415- 5367 Nov, Elevated liver enzymes 790.5 [place] [address] 55428- 6686 Nov, [facility] [address], [place] [address]- 5158 Nov, [facility] [id number] [place] [address] 07399- 9770 Nov, [facility] [id number] [place] [address] 06544- 3401 Nov, Benign essential hypertension 401.1 ; Diabetes mellitus without mention of complication, type I [juvenile type], uncontrolled 250.03 and Nondependent cannabis abuse, continuous 305.21 [facility] [id number] [place] [address] 30781- 0300 Oct, Cellulitis 682.9 and Benign essential hypertension 401.1 [facility] [id number] [place] [address] 59073- 9907 Oct, [facility] [id number] [place] [address] 37702- 4320 September, [facility] [id number] [place] [address] 67732- 1655 September, [facility] [id number] [place] [address] 14557- 7619 28 Aug, 2014 [facility] [address] [address]- 8606 28 Aug, 2014 [facility] [address], [place] [address]- 1564 Aug, [facility] [address], [place] [address]- 1207 Aug, [facility] [id number] [place] [address] 00036- 9971 Jul, [facility] [address] [address]- 0802 Jul, [facility] [id number] [place] [address] 96467- 1214 Jul, [facility] [place] [facility] [address] [id number] [place] [address]- 4855 Jul, [facility] [place] [facility] [address] [id number] [place] [address]- 6360 Jul, [facility] [place] [facility] [address] [id number] [place] [address]- 3829 Jul, [facility] [place] [facility] [address] [id number] [place] [address]- 5359 Jun, [facility] [place] [facility] [address] [id number] [place] [address]- 9395 Jun, [facility] [place] [facility] [address] [id number] [place] [address]- 0185 Jun, [facility] [place] [facility] [address] [id number] [place] [address]- 3705 Jun, [facility] [place] [facility] [address] [id number] [place] [address]- 0131 Jun, [facility] [place] [facility] [address] [id number] [place] [address]- 6310 May, [facility] [place] [facility] [address] [id number] [place] [address]- 7065 May, [facility] [place] [facility] [address] [id number] [place] [address]- 2590 May, [facility] [place] [facility] [address] [id number] [place] [address]- 3932 May, [facility] [place] [facility] [address] [id number] [place] [address] May, [facility] [place] [facility] [address] [id number] [place] [address] May, [facility] [place] [facility] [address] [id number] [place] [address] May, [facility] [place] [facility] [address] [id number] [place] [address] May, [facility] [place] [facility] [address] [id number] [place] [address] Apr, [facility] [place] [facility] [address] [id number] [place] [address] Apr, [facility] [place] [facility] [address] [id number] [place] [address] Apr, [facility] [place] [facility] [address] [id number] [place] [address] Apr, [facility] [place] [facility] [address] [id number] [place] [address] Mar, [facility] [place] [facility] [address] [id number] [place] [address] Mar, [facility] [place] [facility] [address] [id number] [place] [address] Mar, [facility] [place] [facility] [address] [id number] [place] [address] Mar, [facility] [place] [facility] [address] [id number] [place] [address] Feb, [facility] [place] [facility] [address] [id number] [place] [address] Feb, [facility] [place] [facility] [address] [id number] [place] [address] Feb, [facility] [place] [facility] [address] [id number] [place] [address] Feb, [facility] [place] [facility] [address] [id number] [place] [address] Feb, [facility] [place] [facility] [address] [id number] [place] [address] Feb, [facility] [place] [facility] [address] [id number] [place] [id number] Jan, [facility] [place] [facility] [address] [id number] [place] [address] Jan, [facility] [place] [facility] [address] [id number] [place] [address] Jan, [facility] [place] [facility] [address] [id number] [place] [address] Jan, [facility] [place] [facility] [address] [id number] [place] [address] Dec, [facility] [place] [facility] [address] [id number] [place] [address] Dec, [facility] [place] [facility] [address] [id number] [place] [address] Dec, [facility] [place] [facility] [address] [id number] [place] [address] Dec, [facility] [place] [facility] [address] [id number] [place] [address] Dec, [facility] [place] [facility] [address] [id number] [place] [address] Dec, [facility] [place] [facility] [address] [id number] [place] [address] Oct, [facility] [place] [facility] [address] [id number] [place] [address] Oct, [facility] [place] [facility] [address] [id number] [place] [address] September, [facility] [place] [facility] [address] [id number] [place] [address] September, [facility] [place] [facility] [address] [id number] [place] [address] September, [facility] [place] [facility] [address] [id number] [place] [address] September, [facility] [place] [facility] [address] [id number] [place] [address] September, [facility] [place] [facility] [address] [id number] [place] [address]- [address] September, [facility] [place] [facility] [address] [id number] [place] [address] Aug, [facility] [place] [facility] [address] [id number] [place] [address] Aug, [facility] [place] [facility] [address] [id number] [place] [address]- [address] Aug, [facility] [place] [facility] [address] [id number] [place] [address] Aug, [facility] [place] [facility] [address] [id number] [place] [address] Jul, [facility] [place] [facility] [address] [id number] [place] [address] Jul, [facility] [place] [facility] [address] [id number] [place] [address] Jun, [facility] [place] [facility] [address] [id number] [place] [address] Jun, [facility] [place] [facility] [address] [id number] [place] [address] May, [facility] [place] [facility] [address] [id number] [place] [address] May, [facility] [place] [facility] [address] [id number] [place] [address] Jan, [facility] [place] [facility] [address] [id number] [place] [address] Dec, [facility] [place] [facility] [address] [id number] [place] [address] Jun, [facility] [place] [facility] [address] [id number] [place] [address] May, [facility] [place] [facility] [address] [id number] [place] [address] Nov, [facility] [address] [id number] [place] [address] September, [facility] [address] [id number] [place] [address] Aug, [facility] [address] [id number] [place] [address], [place] [address] Aug, [facility] [address] [id number] [place] [address] Aug, [facility] [address] [id number] [place] [address] Aug, [facility] [address] [id number] [place] [address] Nov, [facility] [address] [id number] [place] [address] Oct, [facility] [address] [id number] [place] [address] Jul, [facility] [address] [id number] [place] [address] Feb, [facility] [address] [id number] [place] [address] Feb, [facility] [address] [id number], [place] [address] Apr, [facility] [place] [facility] [address] [id number] [place] [address] Apr, [facility] [place] [facility] [address] [id number] [place] [address] Feb, [facility] [place] [facility] [address] [id number] [place] [address] Feb, [facility] [address] [id number] [place] [address] Jul, IMMUNIZATIONS No Known Immunizations SOCIAL HISTORY Never Assessed REASON FOR VISIT FYI only PLAN OF CARE VITAL SIGNS MEDICATIONS Unknown [...]
--- OUTSIDE RECORDS SUMMARY | 2018-09-15 22:27 | XMS REPORT ---
Author Author YVES BLEVINS [facility] Address [address] [place] [address] Care Team Providers Care Dress Shoe Inspector Name Role Phone YVES BLEVINS Unavailable PROBLEMS Type Condition ICD9-CM Code OEX21-JX Code Onset Dates Condition Status SNOMED Code Problem HTN (hypertension) I10 Active 22900402 Problem Restless legs syndrome G25.81 Active 911984803 Problem GERD (gastroesophageal reflux disease) K21.9 Active 901220441 Problem Chronic hepatitis C without hepatic coma B18.2 Active 117566837 Problem ED (erectile dysfunction) N52.9 Active 972508695 Problem PAD (peripheral artery disease) I73.9 Active 793534027 Problem Ulcer of right foot, unspecified ulcer stage L97.519 Active 51590562 Problem 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 561241987 Problem COPD (chronic obstructive pulmonary disease) J44.9 Active 79587746 Problem DM neuro manif type II E11.49 Active 05562200 Problem Sinusitis, unspecified chronicity, unspecified location J32.9 Active 03647571 ALLERGIES No Information ENCOUNTERS Encounter Location Date Diagnosis [facility] [address], [place] [address] Jan, Back pain M54.9 [facility] [address] [address] Jan, [facility] [address], [place] [address] 3363 Jan, [facility] [id number] [place] [address] 23721- 8694 Dec, Back pain M54.9 [facility] [address], [place] [address] 8893 Dec, [facility] [id number] [place] [address] 87192- 8626 Dec, Upper respiratory tract infection, unspecified type J06.9 [facility] [id number] [place] [address] 28276- 8860 Dec, [facility] [id number] [place] [address] 83960 -4782 Dec, Acute suppurative otitis media of right ear without spontaneous rupture of tympanic membrane, recurrence not specified H66.001 and Acute nasopharyngitis J00 [facility] [id number] [place] [address] 18949- 0810 Dec, Back pain M54.9 [facility] [id number] [place] [address] 47165- 6143 Dec, Foot infection L08.9 and 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 complication E11.49 [place] [address] 15004- 2573 Nov, Cellulitis of toe of right foot L03.031 ; Polyneuropathy in diseases classified elsewhere G63 and HTN (hypertension) I10 [facility] [id number] [place] [address] 55124- 3005 Nov, [facility] [id number] [place] [address] 76848- 4756 Nov, [facility] [id number] [place] [address] 94449- 9640 Nov, Back pain M54.9 [facility] [id number] [place] [address] 07518- 8955 Nov, Shortness of breath R06.02 [facility] [id number] [place] [address] 89468- 5199 Nov, [facility] [id number] [place] [address] 67869- 9517 Oct, [facility] [address] [place] [address]- 6384 Oct, [facility] [id number] [place] [address] 81958- 4364 Oct, [facility] [address], [place] [address]- 8433 Oct, [facility] [id number] [place] [address] 49969- 4906 Oct, [facility] [id number] [place] [address] 72024- 2607 Oct, Back pain M54.9 [facility] [id number] [place] [address] 63295- 3593 Oct, Back pain M54.9 [facility] [id number] [place] [address] 67135- 6601 Oct, [facility] [id number] [place] [address] 32345- 2563 September, [facility] [id number] [place] [address] 43208- 9607 September, [facility] [id number] [place] [address] 10871- 5718 September, [facility] [id number] [place] [address] 46535- 1358 September, 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 complication E11.49 and Hypotension, unspecified hypotension type I95.9 [facility] [address], [place] [address]- 9992 September, [facility] [id number] [place] [address] 98070- 1417 September, [facility] [address], [place] [address]- 0053 September, Back pain M54.9 [facility] [id number] [place] [address] 26630- 7391 Aug, [facility] [id number] [place] [address] 30361- 2931 Aug, Acute cystitis with hematuria N30.01 ; Ulcer of right foot, unspecified ulcer stage L97.519 ; HTN (hypertension) I10 ; COPD (chronic obstructive pulmonary disease) J44.9 and DM neuro manif type II E11.49 [place] [address] 88794- 7559 Aug, Back pain M54.9 [place] [address] 25943- 7771 Jul, [place] [address] 14101- 3738 Jul, Back pain M54.9 [place] [address] 43923- 7125 Jul, [place] [address] 39204- 9273 Jul, DM neuro manif type II E11.49 and Ulcer of right foot, unspecified ulcer stage L97.519 [place] [address] 18828- 6020 Jun, [place] [address] 24067- 6077 Jun, [place] [address] 82334- 4535 May, 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 complication E11.49 ; GERD (gastroesophageal reflux disease) K21.9 and PAD ( peripheral artery disease) I73.9 [place] [address] 41701- 6416 May, Decubital ulcer L89.90 ; Diabetes E11.9 and GERD ( gastroesophageal reflux disease) K21.9 [place] [address] 66752- 2766 May, [facility] [address], [place] [address]- 2927 Apr, [facility] [id number] [place] [address] 44017- 3447 Mar, [facility] [id number] [place] [address] 40198- 6378 Mar, [facility] [id number] [place] [address] 84108- 8882 Feb, [facility] [id number] [place] [address] 14627- 2262 Feb, [facility] [id number] [place] [address] 61391- 7760 Jan, [facility] [id number] [place] [address] 43014- 7031 Jan, HTN (hypertension) I10 [facility] [id number] [place] [address] 29638- 7775 Jan, [facility] [id number] [place] [address] 93014- 9695 Dec, Back pain M54.9 [facility] [id number] [place] [address] 78695- 1311 Dec, Back pain M54.[address] [facility] [id number] [place] [address] 84854 -8100 Dec, Encounter for immunization Z23 and Puncture wound of right foot, initial encounter S91.331A [facility] [id number] [place] [address] 14588- 6904 Dec, [facility] [id number] [place] [address] 50256- 5328 Nov, [facility] [id number] [place] [address] 30432- 5874 Nov, COPD (chronic obstructive pulmonary disease) J44.9 [facility] [address], [place] [address]- 5774 Nov, [facility] [id number] [place] [address] 63655- 4276 Oct, [facility] [id number] [place] [address] 14273- 3512 Oct, [facility] [id number] [place] [address] 33905- 5288 September, Onychomycosis B35.1 and DM neuro manif type II E11.49 [facility] [id number] [place] [address] 74258- 0290 September, [facility] [id number] [place] [address] 83259- 7950 Aug, [facility] [id number] [place] [address] 88304- 6362 Jul, Sinusitis, unspecified chronicity, unspecified location J32.9 and Cough R05 [facility] [id number] [place] [address] 78955- 3529 Jul, Back pain M54.9 [facility] [id number] [place] [address] 19970- 7552 14 Jun, 2016 Back pain M54.9 [facility] [id number] [place] [address] 74422- 5719 06 Jun, 2016 COPD (chronic obstructive pulmonary disease) J44.9 [facility] [address], [place] [address]- 0858 May, [facility] [id number] [place] [address] 14839- 5983 May, [facility] [id number] [place] [address] 56404- 0929 May, Back pain M54.9 [facility] [id number] [address]- 3318 16 May, 2016 [facility] [id number] [place] [address] 30857- 9679 May, [facility] [id number] [place] [address] 00141- 4046 May, Diabetes E11.9 [facility] [id number] [place] [address] 20565- 5189 11 May, 2016 Diabetes E11.9 ; GERD [...] test Z11.59 [facility] [id number] [place] [address] 11461- 3324 May, HTN (hypertension) I10 [facility] [id number] [place] [address] 82756- 5524 Apr, [facility] [id number] [place] [address] 57142- 4341 Apr, [facility] [address], [place] [address]- 7264 Apr, [facility] [address], [place] [address]- 9961 Apr, [facility] [address], [place] [address]- 1460 Apr, [facility] [id number] [place] [address] 48055- 4949 Mar, [facility] [address], [place] [address]- 4312 Mar, [facility] [id number] [place] [address] 09319- 9630 Mar, [facility] [id number] [place] [address] 24401- 3332 Mar, [facility] [address] 68204- 1868 Mar, Dental examination Z01.20 [facility] [address] 94145- 4158 Feb, [facility] [address] 75476- 4876 Feb, [place] [address] 80648- 1414 Feb, Back pain M54.9 [place] [address] 99879- 9897 Jan, [facility] [address] 30110- 7843 Jan, [facility] [address] 17448- 7291 Dec, Diabetes E11.9 ; GERD (gastroesophageal reflux disease) K21.9 ; ED (erectile dysfunction) N52.9 ; HTN (hypertension) I10 ; Insomnia G47.00 ; COPD (chronic obstructive pulmonary disease) J44.9 ; Neuropathy G62.9 and Bipolar depression F31.30 [facility] [id number] [place] [address] 69366- 4991 Dec, 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 complication E11.49 and Onychomycosis B35.1 [facility] [id number] [place] [address] 49512- 5743 Dec, [facility] [address] 96358- 3902 Dec, [facility] [id number] [place] [address] 46590- 4060 Dec, [place] [address] [facility] [id number] [address]- 7690 Dec, [facility] [address] [facility] [id number], [place] [address]- 9641 Nov, [facility] [address] [facility] [id number], [place] [address]- 5195 Nov, [facility] [address] [facility] [id number], [place] [address]- 4158 Oct, [facility] [address] [facility] [id number], [place] [address]- 9055 Oct, [facility] [address] [facility] [id number], [place] [address]- 0329 Oct, Back pain M54.9 [facility] [address], [place] [address]- 5818 Oct, [facility] [id number] [address]- 0981 Oct, [facility] [id number] [address]- 0288 Oct, [facility] [address], [place] [address]- 4795 Oct, HTN (hypertension) I10 [facility] [address], [place] [address]- 2125 Oct, Back pain M54.9 [facility] [id number], [place] [address]- 4526 Oct, Chronic pain syndrome G89.4 [facility] [id number], [place] [address]- 7691 September, Back pain M54.9 [facility] [id number], [place] [address]- 6141 September, HTN (hypertension) I10 [facility] [address], [place] [address]- 1294 Aug, Porokeratosis Q82.8 ; Onychomycosis B35.1 and 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 complication E11.49 [facility] [id number] [place] [address] 68897- 4024 Aug, GERD (gastroesophageal reflux disease) K21.9 ; Diabetes E11.9 ; HTN (hypertension) I10 ; Insomnia G47.00 ; Restless legs syndrome G25.81 ; COPD (chronic obstructive pulmonary disease) J44.9 ; Back pain M54.9 and Bipolar 1 disorder F31.9 [facility] [id number] [place] [address] 76713- 4711 Aug, [facility] [id number] [place] [address] 40376- 5840 Aug, [facility] [id number] [place] [address] 53587- 3220 Aug, [facility] [id number] [place] [address] 07387- 9120 Aug, [facility] [id number] [place] [address] 31426- 1481 Jul, [facility] [id number] [place] [address] 56671- 9456 Jul, [facility] [address], [place] [address]- 0966 30 Jul, 2015 [facility] [id number] [address]- 2296 16 Jul, 2015 [facility] [address], [place] [address]- 1960 15 Jul, 2015 [facility] [id number] [place] [address] 888281- 7374 Jul, [facility] [address], [place] [address]- 9845 Jun, Decubital ulcer L89.90 ; Diabetes E11.9 ; Back pain M54.9 ; HTN (hypertension) I10 and COPD (chronic obstructive pulmonary disease) J44.9 [facility] [address], [place] [address]- 3771 Jun, [facility] [address], [place] [address]- 5520 Jun, [facility] [id number] [place] [address] 02121- 8126 Jun, [facility] [id number] [place] [address] 46001- 3096 Jun, [facility] [id number] [place] [address] 60472- 3861 Jun, Diabetes E11.9 ; Insomnia G47.00 ; Decubital ulcer L89.90 ; GERD (gastroesophageal reflux disease) K21.9 ; Back pain M54.9 ; Superficial fungus infection of skin B36.9 and HTN (hypertension) I10 [address] [id number] [id number] Jun, Dental examination Z01.20 [place] [address], [place] [address]- 5149 May, [place] [address], [place] [address]- 3857 May, [place] [address], [place] [address]- 1515 May, [place] [id number] [place] [address] 31809- 8100 May, Diabetes E11.9 ; HTN (hypertension) I10 and Decubital ulcer L89.90 [facility] [address], [place] [address]- 6367 May, HTN (hypertension) I10 ; Decubital ulcer L89.90 and Diabetes E11.9 [place] [id number] [place] [address] 00479- 8492 30 Apr, 2015 Diabetes E11.9 ; GERD (gastroesophageal reflux disease) K21.9 ; Back pain M54.9 ; HTN (hypertension) I10 ; Restless legs syndrome G25.81 and Decubital ulcer L89.90 [place] [address] 25641- 2384 17 Apr, 2015 [place] [address] 52280- 2953 Apr, Diabetes E11.9 ; HTN (hypertension) I10 ; Restless legs syndrome G25.81 ; GERD (gastroesophageal reflux disease) K21.9 and COPD ( chronic obstructive pulmonary disease) J44.9 [place] [address] 95845- 1788 Mar, [address] 10144- 6328 Mar, [place] [address] 47219- 7066 Mar, Diabetes E11.9 ; Abscess L02.91 and Restless legs syndrome G25.81 [place] [address] 32820- 3840 Mar, [place] [address] 64396- 8081 Feb, GERD (gastroesophageal reflux disease) K21.9 ; Back pain M54.9 ; ED (erectile dysfunction) N52.9 ; Diabetes E11.9 ; HTN (hypertension) I10 and Insomnia G47.00 [place] [address] 36150- 8547 Feb, [place] [address] 14014- 5018 Feb, [place] [address] 36394- 9021 Jan, [facility] [id number] [place] [address] 53315- 6769 Jan, Diabetes 250.00 ; Nondependent cannabis abuse, continuous 305.21 ; Cough 786.2 ; Schizoaffective disorder, unspecified 295.70 ; Sciatica 724.3 ; Other, mixed, or unspecified nondependent drug abuse, unspecified 305.90 ; Chronic pain 338.29 ; GERD (gastroesophageal reflux disease) 530.81 and HTN (hypertension) 401.9 [facility] [address] 57530- 8600 Jan, [facility] [address] 22867- 4747 Jan, [place] [address] 97270- 4943 Jan, Chronic pain associated with significant psychosocial dysfunction 338.4 ; Diabetes mellitus without mention of complication, type I [ juvenile type], uncontrolled 250.03 ; Benign essential hypertension 401.1 ; Schizoaffective disorder, unspecified 295.70 ; Wheezing 786.07 ; Ear ache 388.70 ; Cough 786.2 ; Sciatica 724.3 and Foot pain, bilateral 729.5 [place] [id number] [place] [address] 66202- 1805 Dec, [facility] [id number] [place] [address] 79126- 1648 Dec, [facility] [id number] [place] [address] 43606- 9924 Dec, [facility] [id number] [place] [address] 68602- 0679 Dec, [place] [address] 97758- 7485 Dec, [facility] [address] 59021- 6882 Nov, Elevated liver enzymes 790.5 [place] [address] [place] [address]- 3107 Nov, [facility] [address], [place] [address]- 9670 Nov, [facility] [id number] [place] [address] 84757- 7031 Nov, [facility] [id number] [place] [address] 97035- 6440 Nov, Benign essential hypertension 401.1 ; Diabetes mellitus without mention of complication, type I [juvenile type], uncontrolled 250.03 and Nondependent cannabis abuse, continuous 305.21 [facility] [id number] [place] [address] 65288- 6930 Oct, Cellulitis 682.9 and Benign essential hypertension 401.1 [facility] [id number] [place] [address] 59417- 2337 Oct, [facility] [id number] [place] [address] 20467- 6205 September, [facility] [id number] [place] [address] 71210- 2770 September, [facility] [id number] [place] [address] 06150- 7181 Aug, [facility] [address], [place] [address]- 8753 Aug, [facility] [id number] [place] [address]15- 3332 Aug, [facility] [id number] [address] Aug, [facility] [id number] [place] [address]17- 6005 Jul, [facility] [id number] [address] Jul, [facility] [id number] [place] [address] 08759- 5782 Jul, [facility] [place] [facility] [address] [id number] [place] [address] Jul, [facility] [place] [facility] [address] [id number] [place] [address]- 4573 Jul, [facility] [place] [facility] [address] [id number] [place] [address] Jul, [facility] [place] [facility] [address] [id number] [place] [address] Jun, [facility] [place] [facility] [address] [id number] [place] [address]- 7564 Jun, [facility] [place] [facility] [address] [id number] [place] [address]- 6916 Jun, [facility] [place] [facility] [address] [id number] [place] [address]- 2166 Jun, [facility] [place] [facility] [address] [id number] [place] [address]- 7009 Jun, [facility] [place] [facility] [address] [id number] [place] [address]- 8751 May, [facility] [place] [facility] [address] [id number] [place] [address]- 7696 May, [facility] [place] [facility] [address] [id number] [place] [address]- 3712 May, [facility] [place] [facility] [address] [id number] [place] [address]- 8270 May, [facility] [place] [facility] [address] [id number] [place] [address]- 0196 May, [facility] [place] [facility] [address] [id number] [place] [address]- 3210 May, [facility] [place] [facility] [address] [id number] [address]31 May, [facility] [place] [facility] [address] [id number] [place] [address]- 6181 May, [facility] [place] [facility] [address] [id number] [place] [address]- 5257 Apr, [facility] [place] [facility] [address] [id number] [place] [address] Apr, [facility] [place] [facility] [address] [id number] [place] [address]- 6796 Apr, [facility] [place] [facility] [address] [id number] [place] [address]- 0377 Apr, [facility] [place] [facility] [address] [id number] [place] [address]- 0662 Mar, [facility] [place] [facility] [address] [id number] [place] [address]- 7215 Mar, [facility] [place] [facility] [address] [id number] [place] [address]- 0935 Mar, [facility] [place] [facility] [address] [id number] [place] [address]- 5188 Mar, [facility] [place] [facility] [address] [id number] [place] [address]- 3388 Feb, [facility] [place] [facility] [address] [id number] [place] [address]- 7802 Feb, [facility] [place] [facility] [address] [id number] [place] [address]- 6358 Feb, [facility] [place] [facility] [address] [id number] [place] [address]- 2603 Feb, [facility] [place] [facility] [address] [id number] [place] [address]- 4487 Feb, [facility] [place] [facility] [address] [id number] [place] [address]- 5999 Feb, [facility] [place] [facility] [address] [id number] [place] [address]- 6453 Jan, [facility] [facility] [address] [id number] [place] [address] Jan, [facility] [place] [facility] [address] [id number] [place] [address] Jan, [facility] [place] [facility] [address] [id number] [place] [address] Jan, [facility] [place] [facility] [address] [id number] [place] [address] Dec, [facility] [place] [facility] [address] [id number] [place] [address] Dec, [facility] [place] [facility] [address] [id number] [place] [address] Dec, [facility] [place] [facility] [address] [id number] [place] [address] Dec, [facility] [place] [facility] [address] [id number] [place] [address] Dec, [facility] [place] [facility] [address] [id number] [place] [address] Dec, [facility] [place] [facility] [address] [id number] [place] [address] Oct, [facility] [place] [facility] [address] [id number] [place] [address] Oct, [facility] [place] [facility] [address] [id number] [place] [address] September, [facility] [place] [facility] [address] [id number] [place] [address] September, [facility] [place] [facility] [address] [id number] [place] [address] September, [facility] [place] [facility] [address] [id number] [place] [address] September, [facility] [place] [facility] [address] [id number] [place] [address] September, [facility] [address] [id number] [place] [address] September, [facility] [address] [id number] [place] [address] Aug, [facility] [address] [id number] [place] [address] Aug, [facility] [address] [id number] [place] [address] Aug, [facility] [address] [id number] [place] [address] Aug, [facility] [address] [id number] [place] [address] Jul, [facility] [address] [id number] [place] [address] Jul, [facility] [address] [id number] [place] [address] Jun, [facility] [address] [id number] [place] [address]- [address] Jun, [facility] [address] [id number] [place] [address]- [address] May, [facility] [address] [id number] [place] [address]- [address] May, [facility] [address] [id number] [place] [address] Jan, [facility] [facility] [address] [id number] [place] [address] Dec, [facility] [facility] [address] [id number] [place] [address] Jun, [facility] [place] [facility] [address] [id number] [place] [address] May, [facility] [address] [id number] [place] [address] Nov, [facility] [place] [facility] [address] [id number] [place] [address] September, [facility] [place] [facility] [address] [id number] [place] [address] Aug, [facility] [place] [facility] [address] [id number] [place] [address] Aug, [facility] [address] [id number] [place] [address] Aug, [facility] [facility] [address] [id number] [place] [address] Aug, [facility] [place] [facility] [address] [id number] [place] [address] Nov, [facility] [place] [facility] [address] [id number] [place] [address] Oct, [facility] [place] [facility] [address] [id number] [place] [address] Jul, [facility] [facility] [address] [id number], [place] [address] Feb, [facility] [facility] [address] [id number], [place] [address] Feb, [facility] [address] [id number], [place] [address] Apr, [facility] [address] [id number] [place] [address] Apr, [facility] [facility] [address] [id number], [place] [address] Feb, [facility] [address] [id number] [place] [address]- [address] Feb, [facility] [address] [facility] [id number] [place] [address] Jul, 2008 IMMUNIZATIONS No Known Immunizations SOCIAL HISTORY Never Assessed REASON FOR VISIT Requests return call PLAN OF CARE VITAL SIGNS MEDICATIONS Unknown [...]
[2018-09-15 22:28] LABS: BASOPHILS # (AUTO) 0.1 10^3/uL (0.0-0.1); BASOPHILS % (AUTO) 1 % (0-10); EOSINOPHILS # (AUTO) 0.4 10^3/uL (0.0-0.3); EOSINOPHILS % (AUTO) 4 % (0-10); HEMATOCRIT 36 % (40-54); HEMOGLOBIN 13.3 G/DL (13.3-17.7); LYMPHOCYTES # (AUTO) 3.1 X 10^3 (1.0-4.0); LYMPHOCYTES % (AUTO) 29 % (12-44); MEAN CORPUSCULAR HEMOGLOBIN 34 PG (25-34); MEAN CORPUSCULAR HGB CONC 37 G/DL (32-36); MEAN CORPUSCULAR VOLUME 93 FL (80-99); MEAN PLATELET VOLUME 9.3 FL (7.4-10.4); MONOCYTES # (AUTO) 2.6 X 10^3 (0.0-1.0); MONOCYTES % (AUTO) 24 % (0-12); NEUTROPHILS # (AUTO) 4.7 X 10^3 (1.8-7.8); NEUTROPHILS % (AUTO) 43 % (42-75); PLATELET COUNT 234 10^3/uL (130-400); RED CELL DISTRIBUTION WIDTH 12.2 % (10.0-14.5); WHITE BLOOD COUNT 10.9 10^3/uL (4.3-11.0)
--- OUTSIDE RECORDS SUMMARY | 2018-09-15 22:28 | XMS REPORT ---
Author Author CLAY HIGHTOWER Organization [facility] Address [address] [place] [address] Care Team Providers Care Director Women Name Role Phone CLAY HIGHTOWER Unavailable PROBLEMS Type Condition ICD9-CM Code [id number] Code Onset Dates Condition Status SNOMED Code Problem HTN (hypertension) I10 Active 58887729 Problem Restless legs syndrome G25.81 Active 928483439 Problem GERD (gastroesophageal reflux disease) K21.9 Active 155852032 Problem Chronic hepatitis C without hepatic coma B18.2 Active 716253660 Problem ED (erectile dysfunction) N52.9 Active 187326278 Problem PAD (peripheral artery disease) I73.9 Active 931763445 Problem Ulcer of right foot, unspecified ulcer stage L97.519 Active 42323193 Problem 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 346815849 Problem COPD (chronic obstructive pulmonary disease) J44.9 Active 12377718 Problem DM neuro manif type II E11.49 Active 71088718 Problem Sinusitis, unspecified chronicity, unspecified location J32.9 Active 54086396 ALLERGIES Substance Reaction Event Type Date Status Latex Unknown Drug Allergy Dec, Active Thorazine Unknown Drug Allergy Dec, Active Haldol Unknown Drug Allergy Dec, Active ENCOUNTERS Encounter Location Date Diagnosis [facility] [address], [place] [address] Jan, [facility] [address], [place] [address] Jan, [facility] [address] [address] 39[address] Dec, Back pain M54.9 [facility] [address], [place] [address] 3[address] Dec, [facility] [id number] [place] [address] 57333- 6153 Dec, Upper respiratory tract infection, unspecified type J06.9 [facility] [address] 37232- 3670 Dec, [facility] [id number] [place] [address] 95942 -5849 Dec, Acute suppurative otitis media of right ear without spontaneous rupture of tympanic membrane, recurrence not specified H66.001 and Acute nasopharyngitis J00 [facility] [address] 54672- 2882 Dec, Back pain M54.9 [facility] [address] 50678- 0557 Dec, Foot infection L08.9 and 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 complication E11.49 [facility] [address] 77393- 0778 Nov, Cellulitis of toe of right foot L03.031 ; Polyneuropathy in diseases classified elsewhere G63 and HTN (hypertension) I10 [facility] [address] 11165- 6842 Nov, [facility] [id number] [place] [address] 99916- 2638 Nov, [facility] [address] 36302- 1883 Nov, Back pain M54.9 [facility] [address] 50015- 8018 Nov, Shortness of breath R06.02 [facility] [address] 22577- 5451 Nov, [facility] [id number] [place] [address] 98063- 8081 Oct, [facility] [address] 32856- 6949 Oct, [facility] [address], [place] [address] 6419 Oct, [facility] [id number] [place] [address] 94837- 6878 Oct, [facility] [address], [place] [address]- 5816 Oct, [facility] [id number] [place] [address] 07315- 8438 Oct, Back pain M54.9 [facility] [id number] [place] [address] 57899- 6257 Oct, Back pain M54.9 [facility] [id number] [place] [address] 11965- 8474 Oct, [facility] [id number] [place] [address] 29484- 1862 September, [facility] [address], [place] [address]- 5261 September, [facility] [id number] [place] [address] 20170- 5541 September, [facility] [address], [place] [address] 9308 September, 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 complication E11.49 and Hypotension, unspecified hypotension type I95.9 [facility] [address], [place] [address]- 6899 September, [facility] [address], [place] [address]- 9362 September, [facility] [address], [place] [address]- 4593 September, Back pain M54.9 [facility] [id number] [place] [address] 08894- 4866 Aug, [facility] [id number] [place] [address] 45300- 0857 Aug, Acute cystitis with hematuria N30.01 ; Ulcer of right foot, unspecified ulcer stage L97.519 ; HTN (hypertension) I10 ; COPD (chronic obstructive pulmonary disease) J44.9 and DM neuro manif type II E11.49 [facility] [address] 93967- 3199 Aug, Back pain M54.9 [facility] [address] 18206- 2389 Jul, [facility] [address] 42035- 9332 Jul, Back pain M54.9 [facility] [address] 51376- 3692 Jul, [facility] [address] 38685- 1298 Jul, DM neuro manif type II E11.49 and Ulcer of right foot, unspecified ulcer stage L97.519 [facility] [address] 69937- 7008 Jun, [facility] [address] 93548- 1792 Jun, [facility] [address] 15647- 8310 May, 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 complication E11.49 ; GERD (gastroesophageal reflux disease) K21.9 and PAD ( peripheral artery disease) I73.9 [facility] [address] 12715- 5662 May, Decubital ulcer L89.90 ; Diabetes E11.9 and GERD ( gastroesophageal reflux disease) K21.9 [facility] [address] 09514- 4143 May, [facility] [address], [place] [address]- 2432 Apr, [facility] [id number] [place] [address] 01309- 5338 Mar, [facility] [id number] [place] [address] 52307- 6775 Mar, [facility] [address] 12904- 4454 Feb, [facility] [id number] [place] [address] 93112- 7227 Feb, [facility] [id number] [place] [address] 34051- 0787 Jan, [facility] [id number] [place] [address] 17111- 7582 Jan, HTN (hypertension) I10 [facility] [id number] [place] [address] 93529- 1519 Jan, [facility] [id number] [place] [address] 71081- 3216 Dec, Back pain M54.9 [facility] [id number] [place] [address] 97940- 4631 Dec, Back pain M54.9 [facility] [id number] [place] [address] 25318 -2984 Dec, Encounter for immunization Z23 and Puncture wound of right foot, initial encounter S91.331A [facility] [id number] [place] [address] 61436- 1433 Dec, [facility] [id number] [place] [address] 53398- 0983 Nov, [facility] [id number] [place] [address] 87484- 2390 Nov, COPD (chronic obstructive pulmonary disease) J44.9 [facility] [address], [place] [address]- 8359 Nov, [facility] [id number] [place] [address] 76556- 6795 Oct, [facility] [id number] [place] [address] 94643- 9182 Oct, [facility] [id number] [place] [address] 86601- 3500 September, Onychomycosis B35.1 and DM neuro manif type II E11.49 [facility] [id number] [place] [address] 90829- 6602 September, [facility] [id number] [place] [address] 44563- 7174 Aug, [facility] [id number] [place] [address] 06476- 5743 Jul, Sinusitis, unspecified chronicity, unspecified location J32.9 and Cough R05 [facility] [id number] [place] [address] 28731- 9379 Jul, Back pain M54.9 [facility] [id number] [place] [address] 79888- 4514 14 Jun, 2016 Back pain M54.9 [facility] [id number] [place] [address] 27701- 9626 06 Jun, 2016 COPD (chronic obstructive pulmonary disease) J44.9 [facility] [id number] [place] [address] 04396- 1843 May, [facility] [id number] [place] [address] 38833- 1014 May, [facility] [id number] [place] [address] 67357- 9136 May, Back pain M54.9 [facility] [id number] [place] [address] 83202- 2872 16 May, 2016 [facility] [address], [place] [address]- 1512 13 May, 2016 [facility] [id number] [place] [address] 46678- 3233 May, Diabetes E11.9 [facility] [address] [address]- 8407 11 May, 2016 Diabetes E11.9 ; GERD [...] Need for hepatitis C screening test Z11.59 [facility] [id number] [place] [address] 46071- 3188 May, HTN (hypertension) I10 [facility] [id number] [place] [address] 10349- 1828 Apr, [facility] [id number] [place] [address] 93762- 9716 Apr, [facility] [address], [place] [address]- 6845 Apr, [facility] [address], [place] [address]- 4842 Apr, [facility] [address], [place] [address]- 1873 Apr, [facility] [id number] [place] [address] 43771- 4435 Mar, [facility] [address], [place] [address]- 1619 Mar, [facility] [id number] [place] [address] 36372- 6831 Mar, [facility] [address], [place] [address]- 1224 Mar, [facility] [id number] [place] [address] 42197- 5087 Mar, Dental examination Z01.20 [facility] [id number] [place] [address] 72556- 7358 Feb, [facility] [id number] [place] [address] 44901- 1361 Feb, [facility] [id number] [place] [address] 03903- 1200 Feb, Back pain M54.9 [facility] [id number] [place] [address] 34585- 9757 Jan, [facility] [id number] [place] [address] 55272- 1313 Jan, [facility] [id number] [place] [address] 02212- 2923 Dec, Diabetes E11.9 ; GERD (gastroesophageal reflux disease) K21.9 ; ED (erectile dysfunction) N52.9 ; HTN (hypertension) I10 ; Insomnia G47.00 ; COPD (chronic obstructive pulmonary disease) J44.9 ; Neuropathy G62.9 and Bipolar depression F31.30 [facility] [id number] [place] [address] 97011- 6979 Dec, 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 complication E11.49 and Onychomycosis B35.1 [facility] [id number] [place] [address] 20750- 5523 Dec, [facility] [id number] [place] [address] 75009- 7360 Dec, [facility] [id number] [place] [address] 25668- 8141 Dec, [facility] [address], [place] [address]- 1448 Dec, [facility] [id number] [place] [address] 51467- 3062 Nov, [facility] [address], [place] [address]- 4431 Nov, [facility] [id number] [place] [address] 59095- 8656 Oct, [facility] [id number] [place] [address] 79061- 7186 Oct, [facility] [id number] [place] [address] 01144- 5121 Oct, Back pain M54.9 [facility] [address] [place] [address] 42464- 1299 Oct, [facility] [id number] [place] [address] 48745- 1236 Oct, [facility] [id number] [place] [address] 15052- 8718 Oct, [facility] [id number] [place] [address] 14771- 7302 Oct, HTN (hypertension) I10 [facility] [address], [place] [address]- 8722 Oct, Back pain M54.9 [facility] [address], [place] [address]- 6926 Oct, Chronic pain syndrome G89.4 [facility] [address], [place] [address]- 2332 September, Back pain M54.9 [facility] [address], [place] [address]- 2072 September, HTN (hypertension) I10 [facility] [id number] [place] [address] 70075- 6901 Aug, Porokeratosis Q82.8 ; Onychomycosis B35.1 and 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 complication E11.49 [facility] [id number] [place] [address] 66709- 8346 Aug, GERD (gastroesophageal reflux disease) K21.9 ; Diabetes E11.9 ; HTN (hypertension) I10 ; Insomnia G47.00 ; Restless legs syndrome G25.81 ; COPD (chronic obstructive pulmonary disease) J44.9 ; Back pain M54.9 and Bipolar 1 disorder F31.9 [facility] [id number] [place] [address] 84219- 1568 Aug, [facility] [id number] [place] [address] 12095- 1488 Aug, [facility] [id number] [place] [address] 49772- 3658 Aug, [facility] [id number] [place] [address] 58120- 1786 Aug, [facility] [id number] [place] [address] 34746- 3122 Jul, [facility] [id number] [place] [address] 99061- 8690 Jul, [facility] [id number] [place] [address] 98830- 1041 30 Jul, 2015 [facility] [id number] [place] [address] 48716- 3567 16 Jul, 2015 [facility] [id number] [place] [address] 66642- 6876 15 Jul, 2015 [facility] [id number] [place] [address] 311288- 3492 Jul, [facility] [id number] [place] [address] 24479- 9936 17 Jun, 2015 Decubital ulcer L89.90 ; Diabetes E11.9 ; Back pain M54.9 ; HTN (hypertension) I10 and COPD (chronic obstructive pulmonary disease) J44.9 [facility] [address] [place] [address] 76807- 7396 Jun, [facility] [id number] [place] [address] 16192- 5358 Jun, [facility] [id number] [place] [address] 17277- 2222 Jun, [facility] [id number] [place] [address] 68561- 7890 Jun, [facility] [id number] [place] [address] 84133- 5296 Jun, Diabetes E11.9 ; Insomnia G47.00 ; Decubital ulcer L89.90 ; GERD (gastroesophageal reflux disease) K21.9 ; Back pain M54.9 ; Superficial fungus infection of skin B36.9 and HTN (hypertension) I10 [address] [id number] [id number] Jun, Dental examination Z01.20 [facility] [address] [place] [address] 35190- 6308 May, [facility] [address] [place] [address] 15118- 8772 May, [facility] [address] [place] [address] 61619- 4057 May, [facility] [id number] [place] [address] 07557- 7887 May, Diabetes E11.9 ; HTN (hypertension) I10 and Decubital ulcer L89.90 [facility] [id number] [place] [address] 56245- 6860 May, HTN (hypertension) I10 ; Decubital ulcer L89.90 and Diabetes E11.9 [facility] [id number] [place] [address] 74032- 9053 30 Apr, 2015 Diabetes E11.9 ; GERD (gastroesophageal reflux disease) K21.9 ; Back pain M54.9 ; HTN (hypertension) I10 ; Restless legs syndrome G25.81 and Decubital ulcer L89.90 [facility] [id number] [place] [address] 16120- 5690 17 Apr, 2015 [facility] [address] 28712- 4748 Apr, Diabetes E11.9 ; HTN (hypertension) I10 ; Restless legs syndrome G25.81 ; GERD (gastroesophageal reflux disease) K21.9 and COPD ( chronic obstructive pulmonary disease) J44.9 [facility] [address] 48566- 9159 Mar, [facility] [address] 88030- 0265 Mar, [facility] [address] 40344- 1041 Mar, Diabetes E11.9 ; Abscess L02.91 and Restless legs syndrome G25.81 [facility] [address] 83466- 5537 Mar, [facility] [id number] [place] [address] 41940- 3730 Feb, GERD (gastroesophageal reflux disease) K21.9 ; Back pain M54.9 ; ED (erectile dysfunction) N52.9 ; Diabetes E11.9 ; HTN (hypertension) I10 and Insomnia G47.00 [facility] [id number] [place] [address] 78985- 3687 Feb, [facility] [address] 92987- 3094 Feb, [facility] [id number] [place] [address] 00052- 3092 Jan, [facility] [id number] [place] [address] 51336- 7134 Jan, Diabetes 250.00 ; Nondependent cannabis abuse, continuous 305.21 ; Cough 786.2 ; Schizoaffective disorder, unspecified 295.70 ; Sciatica 724.3 ; Other, mixed, or unspecified nondependent drug abuse, unspecified 305.90 ; Chronic pain 338.29 ; GERD (gastroesophageal reflux disease) 530.81 and HTN (hypertension) 401.9 [facility] [address] 50659- 0024 Jan, [facility] [address] 67287- 1135 Jan, [facility] [id number] [place] [address] 50557- 2806 Jan, Chronic pain associated with significant psychosocial dysfunction 338.4 ; Diabetes mellitus without mention of complication, type I [ juvenile type], uncontrolled 250.03 ; Benign essential hypertension 401.1 ; Schizoaffective disorder, unspecified 295.70 ; Wheezing 786.07 ; Ear ache 388.70 ; Cough 786.2 ; Sciatica 724.3 and Foot pain, bilateral 729.5 [facility] [id number] [place] [address] 89558- 6832 Dec, [facility] [id number] [place] [address] 53884- 7397 Dec, [facility] [id number] [place] [address] 06376- 1921 Dec, [facility] [id number] [place] [address] 15141- 2589 Dec, [facility] [address] 16713- 7099 Dec, [facility] [id number] [place] [address] 91765- 7878 Nov, Elevated liver enzymes 790.5 [facility] [address] 68880- 6281 Nov, [facility] [address], [place] [address]- 6753 Nov, [facility] [address] [place] [address] 88777- 0385 Nov, [facility] [id number] [place] [address] 63775- 5600 Nov, Benign essential hypertension 401.1 ; Diabetes mellitus without mention of complication, type I [juvenile type], uncontrolled 250.03 and Nondependent cannabis abuse, continuous 305.21 [facility] [id number] [place] [address] 70920- 1043 Oct, Cellulitis 682.9 and Benign essential hypertension 401.1 [facility] [id number] [place] [address] 02351- 5995 Oct, [facility] [id number] [place] [address] 21343- 8427 September, [facility] [id number] [place] [address] 00151- 1308 September, [facility] [id number] [place] [address] 89533- 0225 Aug, [facility] [address] [place] [address]- 2954 Aug, [facility] [address] [place] [address]- 4928 Aug, [facility] [address], [place] [address]- 4854 Aug, [facility] [id number] [place] [address] 36610- 8707 Jul, [facility] [address], [place] [address]- 2392 Jul, [facility] [id number] [place] [address] 37847- 3323 Jul, [facility] [place] [facility] [address] [id number] [place] [address]- 8744 Jul, [facility] [place] [facility] [address] [id number] [place] [address]- 2633 Jul, [facility] [place] [facility] [address] [id number] [place] [address]- 2541 Jul, [facility] [place] [facility] [address] [id number] [place] [address]- 6814 Jun, [facility] [place] [facility] [address] [id number] [place] [address]- 1238 Jun, [facility] [place] [facility] [address] [id number] [place] [address]- 5055 Jun, [facility] [place] [facility] [address] [id number] [place] [address]- 2894 Jun, [facility] [place] [facility] [address] [id number] [place] [address]- 8095 Jun, [facility] [place] [facility] [address] [id number] [place] [address] May, [facility] [place] [facility] [address] [id number] [place] [address] May, [facility] [place] [facility] [address] [id number] [place] [address] May, [facility] [place] [facility] [address] [id number] [place] [address] May, [facility] [place] [facility] [address] [id number] [place] [address] May, [facility] [place] [facility] [address] [id number] [place] [address] May, [facility] [place] [facility] [address] [id number] [place] [address] May, [facility] [place] [facility] [address] [id number] [place] [address] May, [facility] [place] [facility] [address] [id number] [place] [address] Apr, [facility] [place] [facility] [address] [id number] [place] [address] Apr, [facility] [place] [facility] [address] [id number] [place] [address] Apr, [facility] [place] [facility] [address] [id number] [place] [address] Apr, [facility] [place] [facility] [address] [id number] [place] [address] Mar, [facility] [place] [facility] [address] [id number] [place] [address] Mar, [facility] [place] [facility] [address] [id number] [place] [address] Mar, [facility] [place] [facility] [address] [id number] [place] [address] Mar, [facility] [place] [facility] [address] [id number] [place] [address] Feb, [facility] [place] [facility] [address] [id number] [place] [address] Feb, [facility] [place] [facility] [address] [id number] [place] [address] Feb, [facility] [place] [facility] [address] [id number] [place] [address] Feb, [facility] [place] [facility] [address] [id number] [place] [address] Feb, [facility] [place] [facility] [address] [id number] [place] [address] Feb, [facility] [place] [facility] [address] [id number] [place] [address] Jan, [facility] [place] [facility] [address] [id number] [place] [address] Jan, [facility] [place] [facility] [address] [id number] [place] [address] Jan, [facility] [place] [facility] [address] [id number] [place] [address] Jan, [facility] [place] [facility] [address] [id number] [place] [address] Dec, [facility] [place] [facility] [address] [id number] [place] [address] Dec, [facility] [place] [facility] [address] [id number] [place] [address] Dec, [facility] [place] [facility] [address] [id number] [place] [address] Dec, [facility] [place] [facility] [address] [id number] [place] [address] Dec, [facility] [place] [facility] [address] [id number] [place] [address] Dec, [facility] [place] [facility] [address] [id number] [place] [address] Oct, [facility] [place] [facility] [address] [id number] [place] [address] Oct, [facility] [place] [facility] [address] [id number] [place] [address] September, [facility] [place] [facility] [address] [id number] [place] [address] September, [facility] [place] [facility] [address] [id number] [place] [address] September, [facility] [place] [facility] [address] [id number] [place] [address] September, [facility] [place] [facility] [address] [id number] [place] [address] September, [facility] [place] [facility] [address] [id number] [place] [address] September, [facility] [place] [facility] [address] [id number] [place] [address] Aug, [facility] [place] [facility] [address] [id number] [place] [address] Aug, [facility] [place] [facility] [address] [id number] [place] [address] Aug, [facility] [place] [facility] [address] [id number] [place] [address] Aug, [facility] [place] [facility] [address] [id number] [place] [address] Jul, [facility] [place] [facility] [address] [id number] [place] [address] Jul, [facility] [place] [facility] [address] [id number] [place] [address] Jun, [facility] [place] [facility] [address] [id number] [place] [address] Jun, [facility] [place] [facility] [address] [id number] [place] [address] May, [facility] [place] [facility] [address] [id number] [place] [address] May, [facility] [place] [facility] [address] [id number] [place] [address] Jan, [facility] [place] [facility] [address] [id number] [place] [address] Dec, [facility] [place] [facility] [address] [id number] [place] [address] Jun, [facility] [place] [facility] [address] [id number] [place] [address] May, [facility] [place] [facility] [address] [id number] [place] [address] Nov, [facility] [address] [id number] [place] [address] September, [facility] [address] [id number] [place] [address] Aug, [facility] [address] [id number] [place] [address], [place] [address] Aug, [facility] [address] [id number] [place] [address] Aug, [facility] [address] [id number] [place] [address] Aug, [facility] [address] [id number] [place] [address] Nov, [facility] [address] [id number] [place] [address] Oct, [facility] [address] [id number] [place] [address] Jul, [facility] [address] [id number] [place] [address] Feb, [facility] [address] [id number] [place] [address] Feb, [facility] [address] [id number], [place] [address] Apr, [facility] [place] [facility] [address] [id number] [place] [address] Apr, [facility] [place] [facility] [address] [id number] [place] [address] Feb, [facility] [address] [id number] [place] [address] Feb, [facility] [address] [id number] [place] [address] Jul, IMMUNIZATIONS No Known Immunizations SOCIAL HISTORY Never Assessed REASON FOR VISIT Sore throat, difficulty hearing out of right ear. Excessive yellow mucus from nose. [facility] seen [facility] last [facility] and placed on abx of amoxicillin. Reports fatigue also CBrumbackRN PLAN OF CARE Activity Details Follow Up prn. if not improving with PCP or reg follow up Reason: VITAL SIGNS Height 70 in 2018-01-06 Weight 228.0 lbs 2018-01-06 Temperature 97.8 degrees Fahrenheit 2018-01-06 Heart Rate 72 bpm 2018-01-06 Respiratory Rate 20 2018-01-06 BMI 32.71 kg/m2 2018-01-06 Blood pressure systolic 154 mmHg 2018-01-06 Blood pressure diastolic 88 mmHg 2018-01-06 MEDICATIONS Medication Instructions Dosage Frequency Start Date End Date Duration Status Depakote 500 mg Orally 4 times a day 1 tablet 6h May, Active benztropine 1 mg take 1 tablet (1 mg) by oral route 3 times per day Dec, Active Cymbalta 60 mg Orally Once a day 1 capsule 24h May, Active Lyrica 150 MG Orally Twice a day 1 capsule 12h September, 28 days Active Amoxicillin 875 MG Orally every 12 hrs 1 tablet 12h 10 day(s) Active Guaifenesin 400 MG Orally every 4 hrs 1 tablet as needed 4h 10 days Active Elavil 75 by oral route at bedtime 1 tablet Dec, Active Ranitidine HCl 150 MG TAKE ONE TABLET BY MOUTH TWICE DAILY 90 Active Lisinopril 20 mg Orally Once a day 1 tablet 24h 90 Active Invega 6 MG Orally at bedtime 1 tablet Active Ropinirole HCl 3 MG TAKE ONE TABLET BY MOUTH ONCE DAILY 1 TO 3 HOURS BEFORE AT BEDTIME 90 Active Hydrocodone-Ibuprofen 7.5-200 MG Orally 3 times a day 1 tablet as needed 8h Dec, 28 days Active RESULTS No Results PROCEDURES Procedure Date Ordered Result Body Site [facility] VISIT ESTABLISHED PATIENT Jan 06, 2018 INSTRUCTIONS MEDICATIONS ADMINISTERED No Known Medications MEDICAL [...]
--- OUTSIDE RECORDS SUMMARY | 2018-09-15 22:28 | XMS REPORT ---
Author Author YVES BLEVINS [facility] Address [address] [place] [address] Care Team Providers Care Sewer Inspector Name Role Phone YVES BLEVINS Unavailable PROBLEMS Type Condition ICD9-CM Code XNW62-NN Code Onset Dates Condition Status SNOMED Code Problem HTN (hypertension) I10 Active 62764425 Problem Restless legs syndrome G25.81 Active 226376456 Problem GERD (gastroesophageal reflux disease) K21.9 Active 703265711 Problem Chronic hepatitis C without hepatic coma B18.2 Active 508051278 Problem ED (erectile dysfunction) N52.9 Active 091541566 Problem PAD (peripheral artery disease) I73.9 Active 562815103 Problem Ulcer of right foot, unspecified ulcer stage L97.519 Active 88815497 Problem 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 787026589 Problem COPD (chronic obstructive pulmonary disease) J44.9 Active 75146482 Problem DM neuro manif type II E11.49 Active 61904881 Problem Sinusitis, unspecified chronicity, unspecified location J32.9 Active [id number] ALLERGIES No Information ENCOUNTERS Encounter Location Date Diagnosis [facility] [address], [place] [address] Jan, [facility] [id number] [place] [address] 50206- 8093 Jan, [facility] [id number] [place] [address] 19878- 7238 Dec, Back pain M54.9 [facility] [id number] [place] [address] 13593- 8264 Dec, [facility] [id number] [place] [address] 39090- 7997 Dec, Upper respiratory tract infection, unspecified type J06.9 [facility] [id number] [place] [address] 73353- 6355 Dec, [facility] [id number] [place] [address] 57991 -3572 Dec, Acute suppurative otitis media of right ear without spontaneous rupture of tympanic membrane, recurrence not specified H66.001 and Acute nasopharyngitis J00 [facility] [address] [address]- 3799 Dec, Back pain M54.9 [facility] [id number] [place] [address] 87346- 5007 Dec, Foot infection L08.9 and 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 complication E11.49 [facility] [id number] [place] [address] 12028- 3907 Nov, Cellulitis of toe of right foot L03.031 ; Polyneuropathy in diseases classified elsewhere G63 and HTN (hypertension) I10 [facility] [id number] [place] [address] 08587- 4703 Nov, [facility] [id number] [place] [address] 24144- 1953 Nov, [facility] [id number] [place] [address] 37289- 9043 Nov, Back pain M54.9 [facility] [id number] [place] [address] 17076- 6565 Nov, Shortness of breath R06.02 [facility] [id number] [place] [address] 31956- 8650 Nov, [facility] [id number] [place] [address] 18753- 7716 Oct, [facility] [id number] [place] [address] 26187- 8122 Oct, [facility] [id number] [place] [address] 35377- 3456 Oct, [facility] [address], [place] [address] 9541 Oct, [facility] [address], [place] [address] 7687 Oct, [facility] [address], [place] [address]- 4500 Oct, Back pain M54.9 [facility] [id number] [place] [address] 08127- 2860 Oct, Back pain M54.9 [facility] [id number] [place] [address] 35561- 5871 Oct, [facility] [address], [place] [address] 37[address] September, [facility] [id number] [place] [address] 96751- 3893 September, [facility] [address], [place] [address] 9085 September, [facility] [id number] [address] 7692 September, 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 complication E11.49 and Hypotension, unspecified hypotension type I95.9 [facility] [address], [place] [address] 1515 September, [facility] [address], [place] [address] 1163 September, [facility] [address], [place] [address]- 1260 September, Back pain M54.9 [facility] [address], [place] [address] 4[address] Aug, [facility] [address], [place] [address]- 5967 Aug, Acute cystitis with hematuria N30.01 ; Ulcer of right foot, unspecified ulcer stage L97.519 ; HTN (hypertension) I10 ; COPD (chronic obstructive pulmonary disease) J44.9 and DM neuro manif type II E11.49 [facility] [id number] [place] [address] 78164- 9481 Aug, Back pain M54.9 [facility] [address] 75357- 9516 Jul, [facility] [id number] [place] [address] 77254- 6489 Jul, Back pain M54.9 [facility] [address] 01901- 0889 Jul, [facility] [id number] [place] [address] 57675- 8764 Jul, DM neuro manif type II E11.49 and Ulcer of right foot, unspecified ulcer stage L97.519 [facility] [id number] [place] [address] 87838- 0301 Jun, [facility] [id number] [place] [address] 00141- 2529 Jun, [facility] [id number] [place] [address] 88920- 3171 May, 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 complication E11.49 ; GERD (gastroesophageal reflux disease) K21.9 and PAD ( peripheral artery disease) I73.9 [facility] [id number] [place] [address] 51167- 7126 May, Decubital ulcer L89.90 ; Diabetes E11.9 and GERD ( gastroesophageal reflux disease) K21.9 [facility] [id number] [place] [address] 41098- 0427 May, [facility] [id number] [place] [address] 60410- 5977 Apr, [facility] [address], [place] [address] 5639 Mar, [facility] [id number] [place] [address] 78182- 6175 Mar, [facility] [id number] [place] [address] 24055- 1674 Feb, [facility] [id number] [place] [address] 77451- 1469 Feb, [facility] [id number] [place] [address] 92539- 9861 Jan, [facility] [id number] [place] [address] 90626- 5224 Jan, HTN (hypertension) I10 [facility] [id number] [place] [address] 22895- 9893 Jan, [facility] [id number] [place] [address] 38744- 8970 Dec, Back pain M54.9 [facility] [id number] [place] [address] 71375- 1158 Dec, Back pain M54.9 [facility] [id number] [place] [address] 71763 -8640 Dec, Encounter for immunization Z23 and Puncture wound of right foot, initial encounter S91.331A [facility] [id number] [place] [address] 37917- 5314 Dec, [facility] [id number] [place] [address] 41571- 2465 Nov, [facility] [id number] [place] [address] 15174- 8290 Nov, COPD (chronic obstructive pulmonary disease) J44.9 [facility] [id number] [place] [address] 46395- 4714 Nov, [facility] [id number] [address] 9731 Oct, [facility] [id number] [place] [address] 41270- 6890 Oct, [facility] [id number] [place] [address] 65856- 2038 September, Onychomycosis B35.1 and DM neuro manif type II E11.49 [facility] [id number] [place] [address] 54818- 9032 September, [facility] [id number] [place] [address] 92736- 7455 Aug, [facility] [id number] [place] [address] 86187- 3796 Jul, Sinusitis, unspecified chronicity, unspecified location J32.[address] [facility] [id number] [place] [address] 25683- 6000 Jul, Back pain M54.9 [facility] [id number] [place] [address] 33217- 8179 14 Jun, [address] [facility] [id number] [place] [address] 76053- 1648 06 Jun, 2016 COPD (chronic obstructive pulmonary disease) J44.9 [facility] [id number] [place] [address] 05154- 5529 May, [facility] [id number] [place] [address] 74181- 3028 May, [facility] [id number] [place] [address] 57302- 1120 May, Back pain M54.9 [facility] [id number] [place] [address] 08110- 5741 May, [facility] [id number] [place] [address] 44026- 9409 13 May, 2016 [facility] [id number] [place] [address] 47289- 8746 12 May, [address] [facility] [id number] [place] [address] 29405- 2655 11 May, 2016 Diabetes E11.9 ; GERD [...] test Z11.59 [facility] [id number] [place] [address] 07104- 1476 04 May, 2016 HTN (hypertension) I10 [facility] [id number] [place] [address] 40840- 4987 Apr, [facility] [id number] [place] [address] 88775- 0552 Apr, [facility] [id number] [place] [address] 90680- 5932 Apr, [facility] [id number] [place] [address] 67949- 7294 Apr, [facility] [id number] [place] [address] 16983- 8951 Apr, [facility] [id number] [place] [address] 95534- 9895 Mar, [facility] [id number] [place] [address] 42349- 7460 Mar, [facility] [id number] [place] [address] 80967- 5227 Mar, [facility] [id number] [place] [address] 26152- 4944 Mar, [facility] [id number] [place] [address] 77062- 7163 Mar, Dental examination Z01.20 [facility] [id number] [place] [address] 86867- 6742 Feb, [facility] [id number] [place] [address] 61035- 3496 Feb, [facility] [address] 36914- 4825 Feb, Back pain M54.9 [facility] [address] 27907- 4195 Jan, [facility] [id number] [place] [address] 13759- 2009 Jan, [facility] [address] 60881- 0051 Dec, Diabetes E11.9 ; GERD (gastroesophageal reflux disease) K21.9 ; ED (erectile dysfunction) N52.9 ; HTN (hypertension) I10 ; Insomnia G47.00 ; COPD (chronic obstructive pulmonary disease) J44.9 ; Neuropathy G62.9 [address] F[address].30 [facility] [id number] [place] [address] 46295- 1651 Dec, 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 complication E11.[address] [facility] [id number] [place] [address] 49678- 5025 Dec, [facility] [id number] [place] [address] 48138- 5026 Dec, [facility] [id number] [place] [address] 47034- 6040 Dec, [facility] [id number] [place] [address] 11119- 5942 Dec, [facility] [id number] [address]- 4615 07 Nov, 2015 [facility] [id number] [place] [address] 36182- 3568 05 Nov, 2015 [facility] [address], [place] [address]- 6687 Oct, [facility] [id number] [place] [address] 44860- 6529 Oct, [facility] [id number] [place] [address] 13319- 5075 Oct, Back pain M54.9 [facility] [id number] [place] [address] 52696- 1205 Oct, [facility] [id number] [place] [address] 77196- 7313 Oct, [facility] [id number] [place] [address] 03269- 6211 Oct, [facility] [id number] [place] [address] 49470- 8819 Oct, HTN (hypertension) I10 [facility] [id number] [place] [address] 91295- 7285 Oct, Back pain M54.9 [facility] [id number] [place] [address] 28714- 7299 Oct, Chronic pain syndrome G89.4 [facility] [address], [place] [address]- 8828 September, Back pain M54.9 [facility] [id number] [place] [address] 34971- 4815 September, HTN (hypertension) I10 [facility] [address], [place] [address]- 8372 Aug, Porokeratosis Q82.8 ; Onychomycosis B35.1 and 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 complication E11.49 [facility] [address], [place] [address]- 7935 Aug, GERD (gastroesophageal reflux disease) K21.9 ; Diabetes E11.9 ; HTN (hypertension) I10 ; Insomnia G47.00 ; Restless legs syndrome G25.81 ; COPD (chronic obstructive pulmonary disease) J44.9 ; Back pain M54.9 and Bipolar [address] [facility] [id number] [place] [address] 47519- 0805 Aug, [facility] [id number] [place] [address] 80473- 4000 Aug, [facility] [id number] [place] [address] 47310- 9466 Aug, [facility] [id number] [place] [address] 18310- 1537 Aug, [facility] [id number] [place] [address] 35744- 3468 Jul, [facility] [id number] [place] [address] 26727- 2490 Jul, [facility] [id number] [place] [address] 47893- 8701 30 Jul, 2015 [facility] [id number] [place] [address] 08006- 4762 Jul, [facility] [id number] [place] [address] 42567- 0439 15 Jul, 2015 [facility] [id number] [address]- 2923 Jul, [facility] [id number] [place] [address] 57829- 4020 17 Jun, 2015 Decubital ulcer L89.90 ; Diabetes E11.9 ; Back pain M54.9 ; HTN (hypertension) I10 and COPD (chronic obstructive pulmonary disease) J44.9 [facility] [address], [place] [address]- 6121 Jun, [facility] [id number] [place] [address] 12940- 7441 Jun, [facility] [id number] [place] [address] 39529- 9217 Jun, [facility] [id number] [place] [address] 00280- 9503 Jun, [facility] [id number] [place] [address] 01168- 0206 Jun, Diabetes E11.9 ; Insomnia G47.00 ; Decubital ulcer L89.90 ; GERD (gastroesophageal reflux disease) K21.9 ; Back pain M54.9 ; Superficial fungus infection of skin B36.9 and HTN (hypertension) I10 [address] [id number] [place] [address] Jun, Dental examination Z01.20 [facility] [id number] [place] [address] 85154- 9852 May, [facility] [id number] [place] [address] 87444- 6166 May, [facility] [id number] [place] [address] 14785- 3080 May, [facility] [id number] [place] [address] 90605- 0447 May, Diabetes E11.9 ; HTN (hypertension) I10 and Decubital ulcer L89.90 [facility] [id number] [place] [address] 20770- 6806 May, HTN (hypertension) I10 ; Decubital ulcer L89.[address] [facility] [address], [place] [address]- 8825 Apr, Diabetes E11.9 ; GERD (gastroesophageal reflux disease) K21.9 ; Back pain M54.9 ; HTN (hypertension) I10 ; Restless legs syndrome G25.81 and Decubital ulcer L89.90 [facility] [id number] [place] [address] 80554- 9211 Apr, [facility] [id number] [place] [address] 83700- 5902 Apr, Diabetes E11.9 ; HTN (hypertension) I10 ; Restless legs syndrome G25.81 ; GERD (gastroesophageal reflux disease) K21.9 and COPD ( chronic obstructive pulmonary disease) J44.9 [facility] [id number] [place] [address] 01162- 4084 Mar, [facility] [address] 77801- 3480 Mar, [facility] [id number] [place] [address] 83083- 8145 Mar, Diabetes E11.9 ; Abscess L02.91 and Restless legs syndrome G25.81 [facility] [id number] [place] [address] 43977- 4191 Mar, [facility] [id number] [place] [address] 49824- 7202 Feb, GERD (gastroesophageal reflux disease) K21.9 ; Back pain M54.9 ; ED (erectile dysfunction) N52.9 ; Diabetes E11.9 ; HTN (hypertension) I10 and [address] G47.00 [facility] [id number] [place] [address] 00083- 6856 Feb, [facility] [id number] [place] [address] 52470- 8253 Feb, [facility] [id number] [place] [address] 44973- 4743 Jan, [facility] [id number] [place] [address] 66585- 0484 Jan, Diabetes 250.00 ; Nondependent cannabis abuse, continuous 305.21 ; Cough 786.2 ; Schizoaffective disorder, unspecified 295.70 ; Sciatica 724.3 ; Other, mixed, or unspecified nondependent drug abuse, unspecified 305.90 ; Chronic pain 338.29 ; GERD (gastroesophageal reflux disease) 530.81 and HTN (hypertension) 401.9 [facility] [id number] [place] [address] 92439- 4230 Jan, [facility] [address] 04170- 8849 Jan, [facility] [address] 70433- 1628 Jan, Chronic pain associated with significant psychosocial dysfunction 338.4 ; Diabetes mellitus without mention of complication, type I [ juvenile type], uncontrolled 250.03 ; Benign essential hypertension 401.1 ; Schizoaffective disorder, unspecified 295.70 ; Wheezing 786.07 ; Ear ache 388.70 ; Cough 786.2 ; Sciatica 724.3 and Foot pain, bilateral 729.5 [facility] [id number] [place] [address] 85742- 1363 Dec, [facility] [address] 38012- 5227 Dec, [facility] [id number] [place] [address] 89038- 8241 Dec, [facility] [id number] [place] [address] 63001- 4715 Dec, [facility] [id number] [place] [address] 69855- 6231 Dec, [facility] [address] 13649- 9456 Nov, Elevated liver enzymes 790.5 [facility] [id number] [place] [address] 43715- 4859 Nov, [facility] [address] 92266- 0237 15 Nov, 2014 [facility] [address] [address]- 2770 Nov, [facility] [id number] [place] [address] 782001- 0216 Nov, Benign essential hypertension 401.1 ; Diabetes mellitus without mention of complication, type I [juvenile type], uncontrolled 250.03 and Nondependent cannabis abuse, continuous 305.21 [facility] [id number] [place] [address] 96185- 6146 Oct, Cellulitis 682.9 and Benign essential hypertension 401.1 [facility] [id number] [place] [address] 07679- 6103 Oct, [facility] [id number] [place] [address] 98761- 9265 September, [facility] [id number] [place] [address]34- 0411 September, [facility] [id number] [place] [address] 06864- 9498 Aug, [facility] [id number] [place] [address]46- 9593 Aug, [facility] [id number] [address] Aug, [facility] [id number] [address] Aug, [facility] [id number] [address] Jul, [facility] [id number] [place] [address] [id number] Jul, [facility] [id number] [address] Jul, [facility] [id number] [place] [address]91- 1615 Jul, [facility] [place] [facility] [address] [id number] [place] [address] Jul, [facility] [place] [facility] [address] [id number] [place] [address]- [address]15 Jul, [facility] [place] [facility] [address] [id number] [place] [address]- 2467 Jun, [facility] [place] [facility] [address] [id number] [place] [address]- [address] Jun, [facility] [place] [facility] [address] [id number] [place] [address] Jun, [facility] [place] [facility] [address] [id number] [place] [address]- [address] Jun, [facility] [place] [facility] [address] [id number] [place] [address]- [address]21 Jun, [facility] [place] [facility] [address] [id number] [place] [address]- 1792 May, [facility] [place] [facility] [address] [id number] [place] [address]- 7880 May, [facility] [place] [facility] [address] [id number] [place] [address]- 8745 May, [facility] [place] [facility] [address] [id number] [place] [address]- 0744 May, [facility] [place] [facility] [address] [id number] [place] [address]- 1385 May, [facility] [place] [facility] [address] [id number] [place] [address]- [address]125 May, [facility] [place] [facility] [address] [id number] [id number] [address] May, [facility] [place] [facility] [address] [id number] [place] [address]- 3800 May, [facility] [place] [facility] [address] [id number] [place] [address]- 2298 Apr, [facility] [place] [facility] [address] [id number] [place] [address]- 0435 Apr, [facility] [place] [facility] [address] [id number] [place] [address] Apr, [facility] [place] [facility] [address] [id number] [place] [address]- 9775 Apr, [facility] [place] [facility] [address] [id number] [place] [address]- 7070 Mar, [facility] [place] [facility] [address] [id number] [place] [address]- 7357 Mar, [facility] [place] [facility] [address] [id number] [place] [address]- 1154 Mar, [facility] [place] [facility] [address] [id number] [place] [address] Mar, [facility] [place] [facility] [address] [id number] [place] [address] Feb, [facility] [place] [facility] [address] [id number] [place] [address] Feb, [facility] [place] [facility] [address] [id number] [place] [address] Feb, [facility] [place] [facility] [address] [id number] [place] [address] Feb, [facility] [place] [facility] [address] [id number] [place] [address] Feb, [facility] [place] [facility] [address] [id number] [place] [address] Feb, [facility] [place] [facility] [address] [id number] [place] [address] Jan, [facility] [place] [facility] [address] [id number] [place] [id number] [address] Jan, [facility] [place] [facility] [address] [id number] [place] [address] Jan, [facility] [place] [facility] [address] [id number] [place] [address] Jan, [facility] [place] [facility] [address] [id number] [place] [address] Dec, [facility] [place] [facility] [address] [id number] [place] [address] Dec, [facility] [place] [facility] [address] [id number] [place] [address] Dec, [facility] [place] [facility] [address] [id number] [place] [address]- [address] Dec, [facility] [place] [facility] [address] [id number] [place] [address] Dec, [facility] [place] [facility] [address] [id number] [place] [address]- [address] Dec, [facility] [place] [facility] [address] [id number] [place] [address] Oct, [facility] [place] [facility] [address] [id number] [place] [address] Oct, [facility] [place] [facility] [address] [id number] [place] [address] September, [facility] [place] [facility] [address] [id number] [place] [address] September, [facility] [place] [facility] [address] [id number] [place] [address]- [address] September, [facility] [place] [facility] [address] [id number] [place] [address]- [address] September, [facility] [place] [facility] [address] [id number] [place] [address] September, [facility] [place] [facility] [address] [id number] [place] [address]- [address] September, [facility] [place] [facility] [address] [id number] [place] [address]- [address] Aug, [facility] [place] [facility] [address] [id number] [place] [address] Aug, [facility] [place] [facility] [address] [id number] [place] [address] 99[address] Aug, [facility] [place] [facility] [address] [id number] [place] [address] 93[address] Aug, [facility] [place] [facility] [address] [id number] [place] [address] Jul, [facility] [place] [facility] [address] [id number] [place] [address] Jul, [facility] [place] [facility] [address] [id number] [place] [address] 89[address] Jun, [facility] [place] [facility] [address] [id number] [place] [address] Jun, [facility] [place] [facility] [address] [id number] [place] [address] May, [facility] [place] [facility] [address] [id number] [place] [address] 1560 May, [facility] [place] [facility] [address] [id number] [place] [address] 6[address] Jan, [facility] [place] [facility] [address] [id number] [place] [address] Dec, [facility] [place] [facility] [address] [id number] [place] [address] Jun, [facility] [place] [facility] [address] [id number] [place] [address] May, [facility] [place] [facility] [address] [id number] [place] [address] Nov, [facility] [address] [id number] [address] September, [facility] [address] [id number] [address] Aug, [facility] [address] [facility] [id number] [address] Aug, [facility] [address] [facility] [id number] [address] Aug, [facility] [address] [id number] [address] Aug, [facility] [address] [facility] [id number] [place] [address] Nov, [facility] [address] [facility] [id number] [address] Oct, [facility] [address] [facility] [id number] [address] Jul, [facility] [address] [facility] [id number] [address] Feb, [facility] [address] [facility] [id number][place] [address]69 Feb, [facility] [address] [facility] [id number] [address] Apr, [facility] [address] [facility] [id number] [address] Apr, [facility] [address] [facility] [id number] Feb, [facility] [address] [facility] [id number][place] [address] Feb, [facility] [address] [facility] [id number] [address] Jul, IMMUNIZATIONS No Known Immunizations SOCIAL HISTORY Never Assessed REASON FOR VISIT Controlled Med Refill 01/08 PLAN OF CARE VITAL SIGNS MEDICATIONS Medication [...]
--- OUTSIDE RECORDS SUMMARY | 2018-09-15 22:29 | XMS REPORT ---
Author Author CLAY HIGHTOWER [facility] [address] Address [address] [place] [address] Care Team Providers Care Drugless Physician Name Role Phone CLAY HIGHTOWER Unavailable PROBLEMS Type Condition ICD9-CM Code EFB30-DA Code Onset Dates Condition Status SNOMED Code Problem HTN (hypertension) I10 Active 59891348 Problem Restless legs syndrome G25.81 Active 350591924 Problem GERD (gastroesophageal reflux disease) K21.9 Active 440764326 Problem Chronic hepatitis C without hepatic coma B18.2 Active 097187934 Problem ED (erectile dysfunction) N52.9 Active 927438152 Problem PAD (peripheral artery disease) I73.9 Active 700689583 Problem Ulcer of right foot, unspecified ulcer stage L97.519 Active 46046561 Problem 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 550860720 Problem COPD (chronic obstructive pulmonary disease) J44.9 Active 30056620 Problem DM neuro manif type II E11.49 Active 32655659 Problem Sinusitis, unspecified chronicity, unspecified location J32.9 Active 10494784 ALLERGIES No Information ENCOUNTERS Encounter Location Date Diagnosis [facility] [address] [address] Jan, [facility] [id number] [place] [address] 17406- 5758 Jan, [facility] [id number] [place] [address] 80312- 7162 Dec, Back pain M54.9 [facility] [id number] [place] [address] 03843- 7352 Dec, [facility] [id number] [place] [address] 11546- 8902 Dec, Upper respiratory tract infection, unspecified type J06.9 [facility] [id number] [place] [address] 17683- 1987 Dec, [facility] [id number] [place] [address] 44189 -1970 Dec, Acute suppurative otitis media of right ear without spontaneous rupture of tympanic membrane, recurrence not specified H66.001 and Acute nasopharyngitis J00 [facility] [address] 06491- 7196 Dec, Back pain M54.9 [facility] [id number] [place] [address] 95990- 6303 Dec, Foot infection L08.9 and 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 complication E11.49 [facility] [id number] [place] [address] 87303- 9399 Nov, Cellulitis of toe of right foot L03.031 ; Polyneuropathy in diseases classified elsewhere G63 and HTN (hypertension) I10 [facility] [id number] [place] [address] 87165- 2394 Nov, [facility] [id number] [place] [address] 55710- 5885 Nov, [facility] [id number] [place] [address] 03357- 2049 Nov, Back pain M54.9 [facility] [id number] [place] [address] 02474- 3302 Nov, Shortness of breath R06.02 [facility] [id number] [place] [address] 02847- 7484 Nov, [facility] [id number] [place] [address] 60095- 1401 Oct, [facility] [id number] [place] [address] 58011- 2538 Oct, [facility] [id number] [place] [address] 79242- 6800 Oct, [facility] [address] [address] 6521 Oct, [facility] [address] [address]- 9781 Oct, [facility] [address] [address] 7327 Oct, Back pain M54.9 [facility] [id number] [place] [address] 70819- 2260 Oct, Back pain M54.9 [facility] [id number] [place] [address] 65887- 5795 Oct, [facility] [address] [address]- 7013 September, [facility] [id number] [place] [address] 89450- 8735 September, [facility] [address] [address]- 8779 September, [facility] [id number] [place] [address] 46362- 9423 September, 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 complication E11.49 and Hypotension, unspecified hypotension type I95.9 [facility] [address] [address]- 3677 September, [facility] [address] [address]- 9338 September, [facility] [address] [address]- 7236 September, Back pain M54.9 [facility] [address] [address]- 9180 Aug, [facility] [address], [place] [address]- 0865 Aug, Acute cystitis with hematuria N30.01 ; Ulcer of right foot, unspecified ulcer stage L97.519 ; HTN (hypertension) I10 ; COPD (chronic obstructive pulmonary disease) J44.9 and DM neuro manif type II E11.49 [facility] [id number] [place] [address] 24945- 6562 Aug, Back pain M54.9 [facility] [address] 76200- 7846 Jul, [facility] [id number] [place] [address] 58018- 0010 Jul, Back pain M54.9 [place] [facility] [address] 68110- 4951 Jul, [facility] [id number] [place] [address] 12647- 9362 Jul, DM neuro manif type II E11.49 and Ulcer of right foot, unspecified ulcer stage L97.519 [facility] [id number] [place] [address] 62450- 1033 Jun, [place] [facility] [address] 94253- 7779 Jun, [facility] [id number] [place] [address] 81585- 8066 May, 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 complication E11.49 ; GERD (gastroesophageal reflux disease) K21.9 and PAD ( peripheral artery disease) I73.9 [facility] [id number] [place] [address] 39955- 0437 May, Decubital ulcer L89.90 ; Diabetes E11.9 and GERD ( gastroesophageal reflux disease) K21.9 [facility] [id number] [place] [address] 32167- 7353 May, [facility] [id number] [place] [address] 67384- 3795 Apr, [facility] [address], [place] [address]- 7212 Mar, [facility] [id number] [place] [address] 20632- 1005 Mar, [facility] [id number] [place] [address] 13560- 6039 Feb, [facility] [id number] [place] [address] 59648- 9229 Feb, [facility] [id number] [place] [address] 89195- 7586 Jan, [facility] [id number] [place] [address] 76613- 3310 Jan, HTN (hypertension) I10 [facility] [id number] [place] [address] 79477- 3057 Jan, [facility] [id number] [place] [address] 95151- 8500 Dec, Back pain M54.9 [facility] [id number] [place] [address] 90491- 4297 Dec, Back pain M54.9 [facility] [id number] [place] [address] 22053 -3237 Dec, Encounter for immunization Z23 and Puncture wound of right foot, initial encounter S91.331A [facility] [id number] [place] [address] 25352- 3981 Dec, [facility] [id number] [place] [address] 53383- 7966 Nov, [facility] [id number] [place] [address] 53845- 9228 Nov, COPD (chronic obstructive pulmonary disease) J44.9 [facility] [address] [place] [address] 68164- 9112 Nov, [facility] [id number] [address]- 7797 Oct, [facility] [id number] [place] [address] 52582- 3816 Oct, [facility] [id number] [place] [address] 85142- 1103 September, Onychomycosis B35.1 and DM neuro manif type II E11.49 [facility] [id number] [place] [address] 31204- 6204 September, [facility] [id number] [place] [address] 36395- 8977 Aug, [facility] [id number] [place] [address] 36858- 5867 Jul, Sinusitis, unspecified chronicity, unspecified location J32.9 and Cough R05 [facility] [id number] [place] [address] 27466- 1800 Jul, Back pain M54.9 [facility] [id number] [place] [address] 73157- 6934 14 Jun, 2016 Back pain M54.9 [facility] [id number] [place] [address] 39639- 8475 06 Jun, 2016 COPD (chronic obstructive pulmonary disease) J44.9 [facility] [id number] [place] [address] 85634- 8834 May, [facility] [id number] [place] [address] 26783- 9069 May, [facility] [id number] [place] [address] 55080- 9516 May, Back pain M54.9 [facility] [id number] [place] [address] 04008- 0758 May, [facility] [id number] [place] [address] 21463- 1503 13 May, 2016 [facility] [id number] [place] [address] 36968- 3083 12 May, 2016 Diabetes E11.9 [facility] [id number] [place] [address] 39305- 2376 11 May, 2016 Diabetes E11.9 ; GERD [...] Need for hepatitis C screening test Z11.59 [facility] [id number] [place] [address] 45629- 6838 04 May, 2016 HTN (hypertension) I10 [facility] [id number] [place] [address] 23048- 0405 Apr, [facility] [id number] [place] [address] 71650- 5526 Apr, [facility] [id number] [place] [address] 03372- 6343 Apr, [facility] [id number] [place] [address] 73194- 0255 Apr, [facility] [id number] [place] [address] 51528- 5997 Apr, [facility] [id number] [place] [address] 83225- 3782 Mar, [facility] [id number] [place] [address] 65545- 6252 Mar, [facility] [id number] [place] [address] 93144- 0086 Mar, [facility] [id number] [place] [address] 38670- 8893 Mar, [facility] [id number] [place] [address] 59747- 3061 Mar, Dental examination Z01.20 [facility] [id number] [place] [address] 13093- 1102 Feb, [facility] [id number] [place] [address] 63578- 4472 Feb, [facility] [address] 85215- 9982 Feb, Back pain M54.9 [facility] [address] 75055- 9645 Jan, [facility] [id number] [place] [address] 72176- 6822 Jan, [facility] [address] 84144- 6751 Dec, Diabetes E11.9 ; GERD (gastroesophageal reflux disease) K21.9 ; ED (erectile dysfunction) N52.9 ; HTN (hypertension) I10 ; Insomnia G47.00 ; COPD (chronic obstructive pulmonary disease) J44.9 ; Neuropathy G62.9 and Bipolar depression F31.30 [facility] [id number] [place] [address] 56954- 1244 Dec, 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 complication E11.49 and Onychomycosis B35.1 [facility] [id number] [place] [address] 12750- 3162 Dec, [facility] [id number] [place] [address] 25063- 2364 Dec, [facility] [id number] [place] [address] 46722- 4663 Dec, [facility] [id number] [place] [address] 94443- 9966 Dec, [facility] [id number] [address]- 4004 07 Nov, 2015 [facility] [address], [place] [address]- 1322 05 Nov, 2015 [facility] [address], [place] [address]- 0599 14 Oct, 2015 [facility] [id number] [place] [address] 47095- 8491 Oct, [facility] [id number] [place] [address] 57388- 6626 Oct, Back pain M54.9 [facility] [id number] [place] [address] 18268- 5295 Oct, [facility] [id number] [place] [address] 75036- 7165 Oct, [facility] [id number] [place] [address] 67200- 2764 Oct, [facility] [id number] [place] [address] 49256- 6312 Oct, HTN (hypertension) I10 [facility] [id number] [place] [address] 05734- 0032 Oct, Back pain M54.9 [facility] [id number] [place] [address] 99448- 8743 Oct, Chronic pain syndrome G89.4 [facility] [address] [address]- 2902 September, Back pain M54.9 [facility] [id number] [place] [address] 97858- 0428 September, HTN (hypertension) I10 [facility] [address] [address]- 6250 Aug, Porokeratosis Q82.8 ; Onychomycosis B35.1 and 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 complication E11.49 [facility] [address], [place] [address]- 2224 Aug, GERD (gastroesophageal reflux disease) K21.9 ; Diabetes E11.9 ; HTN (hypertension) I10 ; Insomnia G47.00 ; Restless legs syndrome G25.81 ; COPD (chronic obstructive pulmonary disease) J44.9 ; Back pain M54.9 and Bipolar 1 disorder F31.9 [facility] [id number] [place] [address] 92000- 6724 Aug, [facility] [id number] [place] [address] 74856- 2185 Aug, [facility] [id number] [place] [address] 56586- 5747 Aug, [facility] [id number] [place] [address] 95254- 5619 Aug, [facility] [id number] [place] [address] 58417- 2690 Jul, [facility] [id number] [place] [address] 94834- 7566 Jul, [facility] [id number] [place] [address] 80106- 8324 Jul, [facility] [id number] [address]- 2851 Jul, [facility] [address], [place] [address]- 8397 15 Jul, 2015 [facility] [address] [address]- 1253 Jul, [facility] [id number] [place] [address] 55841- 8204 17 Jun, 2015 Decubital ulcer L89.90 ; Diabetes E11.9 ; Back pain M54.9 ; HTN (hypertension) I10 and COPD (chronic obstructive pulmonary disease) J44.9 [facility] [address], [place] [address]- 4872 Jun, [facility] [id number] [place] [address] 25501- 0752 Jun, [facility] [id number] [place] [address] 67383- 7629 Jun, [facility] [id number] [place] [address] 69349- 1872 Jun, [facility] [address] [place] [address] 30611- 7146 Jun, Diabetes E11.9 ; Insomnia G47.00 ; Decubital ulcer L89.90 ; GERD (gastroesophageal reflux disease) K21.9 ; Back pain M54.9 ; Superficial fungus infection of skin B36.9 and HTN (hypertension) I10 [address] [id number] [id number] Jun, Dental examination Z01.20 [facility] [id number] [place] [address] 89580- 4200 May, [facility] [id number] [place] [address] 59792- 1346 May, [facility] [address] [place] [address] 31315- 1682 May, [facility] [id number] [place] [address] 05325- 0009 May, Diabetes E11.9 ; HTN (hypertension) I10 and Decubital ulcer L89.90 [facility] [address] [place] [address] 90197- 3132 May, HTN (hypertension) I10 ; Decubital ulcer L89.90 and Diabetes E11.9 [facility] [address] [place] [address] 79908- 3139 Apr, Diabetes E11.9 ; GERD (gastroesophageal reflux disease) K21.9 ; Back pain M54.9 ; HTN (hypertension) I10 ; Restless legs syndrome G25.81 and Decubital ulcer L89.90 [facility] [id number] [place] [address] 63844- 6400 Apr, [facility] [id number] [place] [address] 92292- 2297 Apr, Diabetes E11.9 ; HTN (hypertension) I10 ; Restless legs syndrome G25.81 ; GERD (gastroesophageal reflux disease) K21.9 and COPD ( chronic obstructive pulmonary disease) J44.9 [facility] [id number] [place] [address] 32432- 5090 Mar, [facility] [address] 77257- 5562 Mar, [facility] [id number] [place] [address] 38452- 0623 Mar, Diabetes E11.9 ; Abscess L02.91 and Restless legs syndrome G25.81 [facility] [id number] [place] [address] 52608- 0692 Mar, [facility] [id number] [place] [address] 86433- 3071 Feb, GERD (gastroesophageal reflux disease) K21.9 ; Back pain M54.9 ; ED (erectile dysfunction) N52.9 ; Diabetes E11.9 ; HTN (hypertension) I10 and Insomnia G47.00 [facility] [id number] [place] [address] 90353- 5117 Feb, [facility] [id number] [place] [address] 72930- 3612 Feb, [facility] [id number] [place] [address] 65281- 5546 Jan, [facility] [id number] [place] [address] 94966- 2350 Jan, Diabetes 250.00 ; Nondependent cannabis abuse, continuous 305.21 ; Cough 786.2 ; Schizoaffective disorder, unspecified 295.70 ; Sciatica 724.3 ; Other, mixed, or unspecified nondependent drug abuse, unspecified 305.90 ; Chronic pain 338.29 ; GERD (gastroesophageal reflux disease) 530.81 and HTN (hypertension) 401.9 [facility] [id number] [place] [address] 93354- 3647 Jan, [facility] [address] 54746- 0904 Jan, [place] [facility] [address] 41278- 0819 Jan, Chronic pain associated with significant psychosocial dysfunction 338.4 ; Diabetes mellitus without mention of complication, type I [ juvenile type], uncontrolled 250.03 ; Benign essential hypertension 401.1 ; Schizoaffective disorder, unspecified 295.70 ; Wheezing 786.07 ; Ear ache 388.70 ; Cough 786.2 ; Sciatica 724.3 and Foot pain, bilateral 729.5 [facility] [id number] [place] [address] 38161- 6907 Dec, [facility] [address] 11522- 2535 Dec, [facility] [id number] [place] [address] 44336- 9275 Dec, [facility] [id number] [place] [address] 38512- 7189 Dec, [facility] [id number] [place] [address] 30088- 4965 Dec, [facility] [address] 03587- 6709 Nov, Elevated liver enzymes 790.5 [facility] [id number] [place] [address] 23223- 6629 Nov, [facility] [address] 09020- 7709 15 Nov, 2014 [facility] [address] [address]- 4248 Nov, [facility] [id number] [place] [address] 44357- 5118 Nov, Benign essential hypertension 401.1 ; Diabetes mellitus without mention of complication, type I [juvenile type], uncontrolled 250.03 and Nondependent cannabis abuse, continuous 305.21 [facility] [id number] [place] [address] 69770- 7761 Oct, Cellulitis 682.9 and Benign essential hypertension 401.1 [facility] [id number] [place] [address] 79269- 4736 Oct, [facility] [id number] [place] [address] 94965- 9815 September, [facility] [id number] [place] [address] 08887- 9208 September, [facility] [id number] [place] [address] 63922- 8902 Aug, [facility] [id number] [place] [address] 35421- 8953 Aug, [facility] [address] [address]- 0815 Aug, [facility] [address] [address]- 4310 Aug, [facility] [address] [address]- 0657 Jul, [facility] [id number] [place] [address] Jul, [facility] [id number] Jul, [facility] [id number] [place] [address] Jul, [facility] [place] [facility] [address] [id number] [place] [address] Jul, [facility] [place] [facility] [address] [id number] [place] [address] Jul, [facility] [place] [facility] [address] [id number] [place] [address] Jun, [facility] [place] [facility] [address] [id number] [place] [address] Jun, [facility] [place] [facility] [address] [id number] [place] [address] Jun, [facility] [place] [facility] [address] [id number] [place] [address] Jun, [facility] [place] [facility] [address] [id number] [place] [address] Jun, [facility] [place] [facility] [address] [id number] [place] [address] May, [facility] [place] [facility] [address] [id number] [place] [address] May, [facility] [place] [facility] [address] [id number] [place] [address]- [address] May, [facility] [place] [facility] [address] [id number] [place] [address] May, [facility] [place] [facility] [address] [id number] [place] [address] May, [facility] [place] [facility] [address] [id number] [place] [address] May, [facility] [place] [facility] [address] [id number] [place] [address]- [address] May, [facility] [place] [facility] [address] [id number] [place] [address] May, [facility] [place] [facility] [address] [id number] [place] [address]- [address] Apr, [facility] [place] [facility] [address] [id number] [place] [address]- [address] Apr, [facility] [place] [facility] [address] [id number] [place] [address]- [address] Apr, [facility] [place] [facility] [address] [id number] [place] [address]- [address] Apr, [facility] [place] [facility] [address] [id number] [place] [address]- [address] Mar, [facility] [place] [facility] [address] [id number] [place] [address]- [address] Mar, [facility] [place] [facility] [address] [id number] [place] [address] Mar, [facility] [place] [facility] [address] [id number] [place] [address] Mar, [facility] [place] [facility] [address] [id number] [place] [address]- [address] Feb, [facility] [place] [facility] [address] [id number] [place] [address] Feb, [facility] [place] [facility] [address] [id number] [place] [address] Feb, [facility] [place] [facility] [address] [id number] [place] [address]- [address] Feb, [facility] [place] [facility] [address] [id number] [place] [address]- [address] Feb, [facility] [place] [facility] [address] [id number] [place] [address] Feb, [facility] [place] [facility] [address] [id number] [place] [address] Jan, [facility] [place] [facility] [address] [id number] [place] [address] Jan, [facility] [place] [facility] [address] [id number] [place] [address] Jan, [facility] [place] [facility] [address] [id number] [place] [address] Jan, [facility] [place] [facility] [address] [id number] [place] [address] Dec, [facility] [place] [facility] [address] [id number] [place] [address] Dec, [facility] [place] [facility] [address] [id number] [place] [address] Dec, [facility] [place] [facility] [address] [id number] [place] [address] Dec, [facility] [place] [facility] [address] [id number] [place] [address] Dec, [facility] [place] [facility] [address] [id number] [place] [address] Dec, [facility] [place] [facility] [address] [id number] [place] [address] Oct, [facility] [place] [facility] [address] [id number] [place] [address] Oct, [facility] [place] [facility] [address] [id number] [place] [address] September, [facility] [place] [facility] [address] [id number] [place] [address] September, [facility] [place] [facility] [address] [id number] [place] [address] September, [facility] [place] [facility] [address] [id number] [place] [address] September, [facility] [place] [facility] [address] [id number] [place] [address] September, [facility] [place] [facility] [address] [id number] [address] September, [facility] [place] [facility] [address] [id number] [place] [address] Aug, [facility] [place] [facility] [address] [id number] [place] [address] Aug, [facility] [place] [facility] [address] [id number] [place] [address] Aug, [facility] [place] [facility] [address] [id number] [place] [address] Aug, [facility] [place] [facility] [address] [id number] [place] [address] Jul, [facility] [place] [facility] [address] [id number] [place] [address] Jul, [facility] [place] [facility] [address] [id number] [place] [address] Jun, [facility] [place] [facility] [address] [id number] [place] [address] Jun, [facility] [place] [facility] [address] [id number] [place] [address] May, [facility] [place] [facility] [address] [facility] [id number] [place] [address] May, [facility] [place] [facility] [address] [id number] [place] [address] Jan, [facility] [place] [facility] [address] [id number] [place] [address] Dec, [facility] [place] [facility] [address] [id number] [place] [address] Jun, [facility] [place] [facility] [address] [id number] [place] [address] May, [facility] [place] [facility] [address] [id number] [place] [address] Nov, [facility] [address] [facility] [id number], [place] [address] September, [facility] [address] [facility] [id number], [place] [address] Aug, [facility] [address] [facility] [id number], [place] [address] Aug, [facility] [address] [facility] [id number], [place] [address] Aug, [facility] [address] [id number] [place] [address] Aug, [facility] [address] [facility] [id number] [place] [address] Nov, [facility] [address] [facility] [id number][place] [address] Oct, [facility] [address] [id number], [place] [address] Jul, [facility] [address] [facility] [id number], [place] [address] Feb, [facility] [address] [facility] [id number], [place] [address] Feb, [facility] [address] [id number], [place] [address] Apr, [facility] [address] [facility] [id number], [place] [address] Apr, [facility] [address] [facility] [id number], [place] [address] Feb, [facility] [address] [facility] [id number][place] [address] Feb, [facility] [address] [facility] [id number][place] [address] 14 Jul, 2008 IMMUNIZATIONS No Known Immunizations [...]
--- OUTSIDE RECORDS SUMMARY | 2018-09-15 22:30 | XMS REPORT ---
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[employer] Name Role Phone ALISON HOLCOMB Unavailable PROBLEMS Type Condition ICD9-CM Code BWB22-UA Code Onset Dates Condition Status SNOMED Code Problem HTN (hypertension) I10 Active 20821463 Problem Restless legs syndrome G25.81 Active 295194190 Problem GERD (gastroesophageal reflux disease) K21.9 Active 949297968 Problem Chronic hepatitis C without hepatic coma B18.2 Active 294810909 Problem ED (erectile dysfunction) N52.9 Active 412415217 Problem PAD (peripheral artery disease) I73.9 Active 148434264 Problem Ulcer of right foot, unspecified ulcer stage L97.519 Active 22943632 Problem 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 559552529 Problem COPD (chronic obstructive pulmonary disease) J44.9 Active 64422588 Problem DM neuro manif type II E11.49 Active 06436722 Problem Sinusitis, unspecified chronicity, unspecified location J32.9 Active 95470344 ALLERGIES Substance Reaction Event Type Date Status Latex Unknown Drug Allergy Dec, Active Thorazine Unknown Drug Allergy Dec, Active Haldol Unknown Drug Allergy Dec, Active ENCOUNTERS Encounter Location Date Diagnosis [facility] [id number] [place] [address] 54717- 9890 Jan, [facility] [address], [place] [address] 0195 Jan, [facility] [address] [place] [address] 44006- 6076 Dec, Back pain M54.9 [facility] [address], [place] [address] 9715 Dec, [facility] [id number] [place] [address] 81881- 6382 Dec, Upper respiratory tract infection, unspecified type J06.9 [facility] [id number] [place] [address] 13937- 1288 Dec, [facility] [id number] [place] [address] 38216 -7143 Dec, Acute suppurative otitis media of right ear without spontaneous rupture of tympanic membrane, recurrence not specified H66.001 and Acute nasopharyngitis J00 [facility] [id number] [place] [address] 16359- 1576 Dec, Back pain M54.9 [facility] [id number] [place] [address] 02737- 7235 Dec, Foot infection L08.9 and 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 complication E11.49 [facility] [id number] [place] [address] 31109- 6680 Nov, Cellulitis of toe of right foot L03.031 ; Polyneuropathy in diseases classified elsewhere G63 and HTN (hypertension) I10 [facility] [id number] [place] [address] 46374- 2850 Nov, [facility] [id number] [place] [address] 55542- 5730 Nov, [facility] [id number] [place] [address] 80013- 5243 Nov, Back pain M54.9 [facility] [id number] [place] [address] 53497- 5019 Nov, Shortness of breath R06.02 [facility] [id number] [place] [address] 49610- 4161 Nov, [facility] [id number] [place] [address] 72236- 2840 Oct, [facility] [address], [place] [address] 9714 Oct, [facility] [id number] [place] [address] 12587- 9290 Oct, [facility] [id number] [place] [address] 79796- 3173 Oct, [facility] [id number] [place] [address] 06122- 0207 Oct, [facility] [id number] [place] [address] 39652- 1820 Oct, Back pain M54.9 [facility] [id number] [place] [address] 28395- 2742 Oct, Back pain M54.9 [facility] [id number] [place] [address] 97985- 0167 Oct, [facility] [id number] [place] [address] 42829- 5355 September, [facility] [address] [place] [address] 69890- 1333 September, [facility] [address] [place] [address] 95563- 8227 September, [facility] [address], [place] [address] 3191 September, 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 complication E11.49 and Hypotension, unspecified hypotension type I95.9 [facility] [address], [place] [address]- 2675 September, [facility] [id number] [place] [address] 53090- 4469 September, [facility] [address], [place] [address]- 7986 September, Back pain M54.9 [facility] [id number] [place] [address] 48891- 2980 Aug, [facility] [id number] [place] [address] 91651- 3993 Aug, Acute cystitis with hematuria N30.01 ; Ulcer of right foot, unspecified ulcer stage L97.519 ; HTN (hypertension) I10 ; COPD (chronic obstructive pulmonary disease) J44.9 and DM neuro manif type II E11.49 [facility] [address] 23283- 4967 Aug, Back pain M54.9 [facility] [address] 16628- 3227 Jul, [facility] [address] 50138- 0104 Jul, Back pain M54.9 [facility] [id number] [place] [address] 01422- 5953 Jul, [facility] [address] 44506- 5311 Jul, DM neuro manif type II E11.49 and Ulcer of right foot, unspecified ulcer stage L97.519 [facility] [id number] [place] [address] 15597- 2525 Jun, [facility] [id number] [place] [address] 75290- 4255 Jun, [facility] [id number] [place] [address] 69585- 4158 May, 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 complication E11.49 ; GERD (gastroesophageal reflux disease) K21.9 and PAD ( peripheral artery disease) I73.9 [facility] [address] 74839- 0797 May, Decubital ulcer L89.90 ; Diabetes E11.9 and GERD ( gastroesophageal reflux disease) K21.9 [facility] [address] 74472- 4308 May, [facility] [address], [place] [address]- 3650 Apr, [facility] [id number] [place] [address] 39183- 7496 Mar, [facility] [id number] [place] [address] 95341- 9341 Mar, [facility] [id number] [place] [address] 68680- 5255 Feb, [facility] [id number] [place] [address] 14961- 3900 Feb, [facility] [id number] [place] [address] 47645- 7225 Jan, [facility] [id number] [place] [address] 50967- 3053 Jan, HTN (hypertension) I10 [facility] [id number] [place] [address] 88342- 5040 Jan, [facility] [id number] [place] [address] 77619- 8711 Dec, Back pain M54.9 [facility] [id number] [place] [address] 87682- 7203 Dec, Back pain M54.[address] [facility] [id number] [place] [address] 97436 -9831 Dec, Encounter for immunization Z23 and Puncture wound of right foot, initial encounter S91.331A [facility] [id number] [place] [address] 69787- 9020 Dec, [facility] [id number] [place] [address] 94972- 1711 Nov, [facility] [id number] [place] [address] 14348- 8154 Nov, COPD (chronic obstructive pulmonary disease) J44.9 [facility] [address], [place] [address]- 1544 Nov, [facility] [id number] [place] [address] 39675- 7588 Oct, [facility] [id number] [place] [address] 79833- 8912 Oct, [facility] [id number] [place] [address] 30314- 5055 September, Onychomycosis B35.1 and DM neuro manif type II E11.49 [facility] [id number] [place] [address] 41661- 6337 September, [facility] [id number] [place] [address] 43527- 6918 Aug, [facility] [id number] [place] [address] 81852- 7111 Jul, Sinusitis, unspecified chronicity, unspecified location J32.9 and Cough R05 [facility] [address] [place] [address] 12926- 6290 Jul, Back pain M54.9 [facility] [address], [place] [address]- 2181 14 Jun, 2016 Back pain M54.9 [facility] [address] [place] [address] 32825- 8953 06 Jun, 2016 COPD (chronic obstructive pulmonary disease) J44.9 [facility] [address], [place] [address]- 3624 May, [facility] [id number] [place] [address] 56982- 8345 May, [facility] [address], [place] [address]- 4812 May, Back pain M54.9 [facility] [id number] [address]- 2814 16 May, 2016 [facility] [address] [place] [address] 32664- 7607 13 May, 2016 [facility] [id number] [place] [address] 38990- 0251 12 May, 2016 Diabetes E11.9 [facility] [id number] [place] [address] 61470- 9054 11 May, 2016 Diabetes E11.9 ; GERD [...] C screening test Z11.59 [facility] [address] [place] [address] 02609- 7472 04 May, 2016 HTN (hypertension) I10 [facility] [address], [place] [address]- 7956 Apr, [facility] [id number] [place] [address] 76014- 0456 Apr, [facility] [address], [place] [address]- 4669 Apr, [facility] [address], [place] [address]- 5515 Apr, [facility] [address], [place] [address]- 1542 Apr, [facility] [id number] [place] [address] 20926- 6691 Mar, [facility] [address], [place] [address]- 2778 Mar, [facility] [id number] [address]- 8052 Mar, [facility] [id number] [place] [address] 50619- 5546 Mar, [facility] [id number] [place] [address] 97432- 1192 Mar, Dental examination Z01.20 [facility] [id number] [place] [address] 29497- 2107 Feb, [facility] [id number] [place] [address] 96023- 4949 Feb, [facility] [address] 47024- 3670 Feb, Back pain M54.9 [facility] [id number] [place] [address] 39745- 7324 Jan, [facility] [id number] [place] [address] 63006- 6651 Jan, [facility] [id number] [place] [address] 84975- 5338 Dec, Diabetes E11.9 ; GERD (gastroesophageal reflux disease) K21.9 ; ED (erectile dysfunction) N52.9 ; HTN (hypertension) I10 ; Insomnia G47.00 ; COPD (chronic obstructive pulmonary disease) J44.9 ; Neuropathy G62.9 and Bipolar depression F31.30 [facility] [id number] [place] [address] 40792- 0987 Dec, 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 complication E11.49 and Onychomycosis B35.1 [facility] [id number] [place] [address] 52556- 1829 Dec, [facility] [id number] [place] [address] 42261- 4881 Dec, [facility] [id number] [place] [address] 58675- 2357 Dec, [facility] [address] [facility] [id number] [address]- 7320 Dec, [facility] [address] [facility] [id number], [place] [address]- 5428 Nov, [facility] [id number], [place] [address]- 0281 Nov, [facility] [address] [place] [address] 92156- 2563 Oct, [facility] [address] [facility] [id number], [place] [address]- 4749 Oct, [facility] [address] [place] [address], [place] [address]- 5160 Oct, Back pain M54.9 [facility] [address], [place] [address]- 6495 Oct, [facility] [address], [place] [address]- 2101 Oct, [facility] [address] [place] [address] 53572- 9964 Oct, [facility] [address], [place] [address]- 2969 Oct, HTN (hypertension) I10 [facility] [address], [place] [address]- 2996 Oct, Back pain M54.9 [facility] [address], [place] [address]- 9151 Oct, Chronic pain syndrome G89.4 [facility] [address], [place] [address]- 5128 September, Back pain M54.9 [facility] [address], [place] [address]- 1094 September, HTN (hypertension) I10 [facility] [id number] [place] [address] 65074- 1370 29 Aug, 2015 Porokeratosis Q82.8 ; Onychomycosis B35.1 and 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 complication E11.49 [facility] [id number] [place] [address] 47757- 1828 Aug, GERD (gastroesophageal reflux disease) K21.9 ; Diabetes E11.9 ; HTN (hypertension) I10 ; Insomnia G47.00 ; Restless legs syndrome G25.81 ; COPD (chronic obstructive pulmonary disease) J44.9 ; Back pain M54.9 and Bipolar 1 disorder F31.9 [facility] [id number] [place] [address] 74377- 2708 Aug, [facility] [id number] [place] [address] 03853- 6995 Aug, [facility] [id number] [place] [address] 45931- 7474 Aug, [facility] [id number] [place] [address] 95098- 1231 Aug, [facility] [id number] [place] [address] 99083- 9703 Jul, [facility] [id number] [place] [address] 52412- 0854 Jul, [facility] [id number] [place] [address] 81059- 2237 30 Jul, 2015 [facility] [id number] [place] [address] 01784- 6702 16 Jul, 2015 [facility] [id number] [place] [address] 24283- 4849 15 Jul, 2015 [facility] [id number] [place] [address] 050099- 9539 03 Jul, 2015 [facility] [id number] [place] [address] 91486- 7880 Jun, Decubital ulcer L89.90 ; Diabetes E11.9 ; Back pain M54.9 ; HTN (hypertension) I10 and COPD (chronic obstructive pulmonary disease) J44.9 [facility] [address], [place] [address]- 6712 Jun, [facility] [address] [place] [address] 82322- 1960 Jun, [facility] [id number] [place] [address] 62834- 8751 Jun, [facility] [id number] [place] [address] 08732- 9597 Jun, [facility] [id number] [place] [address] 17699- 8625 Jun, Diabetes E11.9 ; Insomnia G47.00 ; Decubital ulcer L89.90 ; GERD (gastroesophageal reflux disease) K21.9 ; Back pain M54.9 ; Superficial fungus infection of skin B36.9 and HTN (hypertension) I10 [address] [id number] [id number] Jun, Dental examination Z01.20 [facility] [address], [place] [address]- 8057 May, [facility] [address] [place] [address] 29732- 1360 May, [facility] [address], [place] [address]- 3695 May, [facility] [address] [place] [address] 79390- 9426 May, Diabetes E11.9 ; HTN (hypertension) I10 and Decubital ulcer L89.90 [facility] [address], [place] [address]- 7206 May, HTN (hypertension) I10 ; Decubital ulcer L89.90 and Diabetes E11.9 [facility] [id number] [place] [address] 84064- 8680 30 Apr, 2015 Diabetes E11.9 ; GERD (gastroesophageal reflux disease) K21.9 ; Back pain M54.9 ; HTN (hypertension) I10 ; Restless legs syndrome G25.81 and Decubital ulcer L89.90 [facility] [address] 84747- 5533 Apr, [place] [address] 90292- 0865 Apr, Diabetes E11.9 ; HTN (hypertension) I10 ; Restless legs syndrome G25.81 ; GERD (gastroesophageal reflux disease) K21.9 and COPD ( chronic obstructive pulmonary disease) J44.9 [place] [address] 97773- 3282 Mar, [place] [address] 30978- 6456 Mar, [place] [address] 57145- 2087 Mar, Diabetes E11.9 ; Abscess L02.91 and Restless legs syndrome G25.81 [place] [address] 87902- 6194 Mar, [place] [place] [address] 15791- 2023 Feb, GERD (gastroesophageal reflux disease) K21.9 ; Back pain M54.9 ; ED (erectile dysfunction) N52.9 ; Diabetes E11.9 ; HTN (hypertension) I10 and Insomnia G47.00 [place] [address] 02136- 7604 Feb, [place] [address] 95415- 5355 Feb, [place] [address] 07348- 7316 Jan, [facility] [address], [place] [address]- 1962 Jan, Diabetes 250.00 ; Nondependent cannabis abuse, continuous 305.21 ; Cough 786.2 ; Schizoaffective disorder, unspecified 295.70 ; Sciatica 724.3 ; Other, mixed, or unspecified nondependent drug abuse, unspecified 305.90 ; Chronic pain 338.29 ; GERD (gastroesophageal reflux disease) 530.81 and HTN (hypertension) 401.9 [facility] [id number] [place] [address] 38182- 9781 Jan, [facility] [id number] [place] [address] 91348- 3006 Jan, [facility] [id number] [place] [address] 06347- 8037 Jan, Chronic pain associated with significant psychosocial dysfunction 338.4 ; Diabetes mellitus without mention of complication, type I [ juvenile type], uncontrolled 250.03 ; Benign essential hypertension 401.1 ; Schizoaffective disorder, unspecified 295.70 ; Wheezing 786.07 ; Ear ache 388.70 ; Cough 786.2 ; Sciatica 724.3 and Foot pain, bilateral 729.5 [facility] [id number] [place] [address] 89578- 5037 Dec, [facility] [id number] [place] [address] 95813- 8517 Dec, [facility] [id number] [place] [address] 64748- 1197 Dec, [facility] [id number] [place] [address] 99363- 6770 Dec, [facility] [id number] [place] [address] 87313- 6235 Dec, [facility] [id number] [place] [address] 53047- 0919 Nov, Elevated liver enzymes 790.5 [facility] [address] [address] Nov, [facility] [address] [place] [address] Nov, [facility] [id number] [address] Nov, [facility] [id number] [place] [address] 44696- 0518 Nov, Benign essential hypertension 401.1 ; Diabetes mellitus without mention of complication, type I [juvenile type], uncontrolled 250.03 and Nondependent cannabis abuse, continuous 305.21 [facility] [id number] [place] [address] 13774- 7124 Oct, Cellulitis 682.9 and Benign essential hypertension 401.1 [facility] [id number] [address] Oct, [facility] [id number] [place] [address] 59491- 7627 September, [facility] [address] [address] September, [facility] [id number] [place] [address] 48640- 2821 Aug, [facility] [address] [address] Aug, [facility] [address] [place] [address] Aug, [facility] [address] [place] [address] Aug, [facility] [address] [place] [address] Jul, [facility] [address] [place] [address] Jul, [facility] [id number] [place] [address], [place] [address] Jul, [facility] [place] [facility] [address] [id number] [place] [address] 7967 Jul, [facility] [place] [facility] [address] [id number] [place] [address] Jul, [facility] [place] [facility] [address] [id number] [place] [address]- 3[address] Jul, [facility] [place] [facility] [address] [id number] [place] [address] Jun, [facility] [place] [facility] [address] [id number] [place] [address] Jun, [facility] [place] [facility] [address] [id number] [place] [address] Jun, [facility] [place] [facility] [address] [id number] [place] [address] Jun, [facility] [place] [facility] [address] [id number] [place] [address] Jun, [facility] [place] [facility] [address] [id number] [place] [address] May, [facility] [place] [facility] [address] [id number] [place] [address] May, [facility] [place] [facility] [address] [id number] [place] [address] May, [facility] [place] [facility] [address] [id number] [place] [address] May, [facility] [place] [facility] [address] [id number] [place] [address] 12[address] May, [facility] [place] [facility] [address] [id number] [place] [address] May, [facility] [place] [facility] [address] [facility] [id number] [place] [address]45 May, [facility] [place] [facility] [address] [id number] [place] [address] 0[address] May, [facility] [place] [facility] [address] [id number] [place] [address]- 5408 Apr, [facility] [place] [facility] [address] [id number] [place] [address] Apr, [facility] [place] [facility] [address] [id number] [place] [address]- 4026 Apr, [facility] [place] [facility] [address] [id number] [place] [address] Apr, [facility] [place] [facility] [address] [id number] [place] [address] 44[address] Mar, [facility] [place] [facility] [address] [id number] [place] [address]52 Mar, [facility] [place] [facility] [address] [id number] [place] [address]- [address]609 Mar, [facility] [place] [facility] [address] [id number] [place] [address] Mar, [facility] [place] [facility] [address] [id number], [place] [address] Feb, [facility] [place] [facility] [address] [id number], [place] [address] Feb, [facility] [place] [facility] [address] [id number], [place] [address] Feb, [facility] [place] [facility] [address] [id number], [place] [address] Feb, [facility] [place] [facility] [address] [id number], [place] [address] Feb, [facility] [place] [facility] [address] [id number], [place] [address] Feb, [facility] [place] [facility] [address] [id number], [place] [address] Jan, [facility] [place] [facility] [address] [id number] [place] [address] 279[address] Jan, [facility] [place] [facility] [address] [id number] [place] [address]- 4[address] Jan, [facility] [place] [facility] [address] [id number] [place] [address]- 50[address] Jan, [facility] [place] [facility] [address] [id number] [place] [address]- 7297 Dec, [facility] [place] [facility] [address] [id number] [place] [address]- 8240 Dec, [facility] [place] [facility] [address] [id number] [place] [address]- 8168 Dec, [facility] [place] [facility] [address] [id number] [place] [address]- 8198 Dec, [facility] [place] [facility] [address] [id number] [place] [address]- 9[address] Dec, [facility] [place] [facility] [address] [id number] [place] [address] 8877 Dec, [facility] [place] [facility] [address] [id number] [place] [address]- 9495 Oct, [facility] [place] [facility] [address] [id number] [place] [address]- 2541 Oct, [facility] [place] [facility] [address] [id number] [place] [address]- 2979 September, [facility] [place] [facility] [address] [id number] [place] [address]- 7436 September, [facility] [place] [facility] [address] [id number] [place] [address] September, [facility] [place] [facility] [address] [id number] [place] [address]- 0586 September, [facility] [place] [facility] [address] [id number] [place] [address]- 6181 September, [facility] [place] [facility] [address] [id number] [place] [address] 5[address] September, [facility] [place] [facility] [address] [id number] [place] [address]- 8201 Aug, [facility] [place] [facility] [address] [id number] [place] [address] 0074 Aug, [facility] [place] [facility] [address] [id number] [place] [address]349 Aug, [facility] [place] [facility] [address] [id number] [place] [address] 8386 Aug, [facility] [place] [facility] [address] [id number] [place] [address]- 5090 Jul, [facility] [place] [facility] [address] [id number] [place] [address]- 8194 Jul, [facility] [place] [facility] [address] [id number] [place] [address]- 2915 Jun, [facility] [place] [facility] [address] [id number] [place] [address]- 0019 Jun, [facility] [place] [facility] [address] [id number] [place] [address] 30[address] May, [facility] [place] [facility] [address] [id number] [place] [address]- 0395 May, [facility] [place] [facility] [address] [id number] [place] [address] 4717 Jan, [facility] [place] [facility] [address] [id number] [place] [address]- 1295 Dec, [facility] [place] [facility] [address] [id number] [place] [address]- 9446 Jun, [facility] [place] [facility] [address] [id number] [place] [address]- 0383 May, [facility] [place] [facility] [address] [id number] [place] [address] 3988 Nov, [facility] [place] [facility] [address] [id number] [place] [address] 7951 September, [facility] [place] [facility] [address] [id number] [place] [address]- 0912 Aug, [facility] [place] [facility] [address] [id number] [place] [address]- 9373 Aug, [facility] [place] [facility] [address] [id number] [place] [address]- 4979 Aug, [facility] [place] [facility] [address] [id number] [place] [address]- 9935 Aug, [facility] [place] [facility] [address] [id number] [place] [address]- 0268 Nov, [facility] [place] [facility] [address] [id number], [place] [address] Oct, [facility] [place] [facility] [address] [id number] [place] [address]- 9322 Jul, [facility] [place] [facility] [address] [id number] [place] [address]- 6939 Feb, [facility] [place] [facility] [address] [id number], [place] [address] 48[address] Feb, [facility] [place] [facility] [address] [id number], [place] [address] 7153 Apr, [facility] [place] [facility] [address] [id number] [place] [address]- 0953 Apr, [facility] [place] [facility] [address] [id number], [place] [address]- 2982 Feb, [facility] [place] [facility] [address] [id number][place] [address] Feb, [facility] [place] [facility] [address] [facility] [id number] [place] [id number] Jul, IMMUNIZATIONS No Known Immunizations SOCIAL HISTORY Never Assessed REASON FOR VISIT right earache et sore throat since thursday. [email or web address] PLAN OF CARE Activity Details Follow Up if not improving with PCP or reg follow up Reason: VITAL SIGNS Height 70 in 2017-12-31 Weight 233.8 lbs 2017-12-31 Temperature 98.0 degrees Fahrenheit 2017-12-31 Heart Rate 70 bpm 2017-12-31 Respiratory Rate 20 2017-12-31 BMI 33.54 kg/m2 2017-12-31 Blood pressure systolic 130 mmHg 2017-12-31 Blood pressure diastolic 80 mmHg 2017-12-31 MEDICATIONS Medication Instructions Dosage Frequency Start Date End Date Duration Status benztropine 1 mg take 1 tablet (1 mg) by oral route 3 times per day Dec, Active Cymbalta 60 mg Orally Once a day 1 capsule 24h May, Active Guaifenesin 400 MG Orally every 4 hrs 1 tablet as needed 4h 10 days Active Lyrica 150 MG Orally Twice a day 1 capsule 12h September, 28 days Active Hydrocodone-Ibuprofen 7.5-200 MG Orally 3 times a day 1 tablet as needed 8h Dec, 28 days Active Amoxicillin 875 MG Orally every 12 hrs 1 tablet 12h 10 day(s) Active Depakote 500 mg Orally 4 times a day 1 tablet 6h May, Active Lisinopril 20 mg Orally Once a day 1 tablet 24h 90 Active Ranitidine HCl 150 MG TAKE ONE TABLET BY MOUTH TWICE DAILY 90 Active Elavil 75 by oral route at bedtime 1 tablet Dec, Active Ropinirole HCl 3 MG TAKE ONE TABLET BY MOUTH ONCE DAILY 1 TO 3 HOURS BEFORE AT BEDTIME 90 Active Invega 6 MG Orally at bedtime 1 tablet Active RESULTS No Results PROCEDURES Procedure Date Ordered Result Body Site [facility] VISIT ESTABLISHED PATIENT Dec 31, 2017 INSTRUCTIONS MEDICATIONS ADMINISTERED No Known Medications MEDICAL [...]
--- OUTSIDE RECORDS SUMMARY | 2018-09-15 22:30 | XMS REPORT ---
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 [employer] Name Role Phone YVES BLEVINS Unavailable PROBLEMS Type Condition ICD9-CM Code [id number] Code Onset Dates Condition Status SNOMED Code Problem HTN (hypertension) I10 Active 61328641 Problem Restless legs syndrome G25.81 Active 409582270 Problem GERD (gastroesophageal reflux disease) K21.9 Active 936360617 Problem Chronic hepatitis C without hepatic coma B18.2 Active 863142911 Problem ED (erectile dysfunction) N52.9 Active 605376925 Problem PAD (peripheral artery disease) I73.9 Active 057059022 Problem Ulcer of right foot, unspecified ulcer stage L97.519 Active 11266505 Problem 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 428235259 Problem COPD (chronic obstructive pulmonary disease) J44.9 Active 74523276 Problem DM neuro manif type II E11.49 Active 80305934 Problem Sinusitis, unspecified chronicity, unspecified location J32.9 Active 53598842 ALLERGIES No Information ENCOUNTERS Encounter Location Date Diagnosis [facility] [address] [address] Jan, [facility] [id number] [place] [address] 85038- 5953 Jan, [facility] [id number] [place] [address] 57213- 3255 Dec, Back pain M54.9 [facility] [id number] [place] [address] 14250- 8144 Dec, [facility] [id number] [place] [address] 76981- 4127 Dec, Upper respiratory tract infection, unspecified type J06.9 [facility] [id number] [place] [address] 02723- 8601 Dec, [facility] [id number] [place] [address] 44251 -4827 Dec, Acute suppurative otitis media of right ear without spontaneous rupture of tympanic membrane, recurrence not specified H66.001 and Acute nasopharyngitis J00 [facility] [address] 60952- 1766 Dec, Back pain M54.9 [facility] [id number] [place] [address] 65944- 9003 Dec, Foot infection L08.9 and 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 complication E11.49 [facility] [id number] [place] [address] 94078- 6280 Nov, Cellulitis of toe of right foot L03.031 ; Polyneuropathy in diseases classified elsewhere G63 and HTN (hypertension) I10 [facility] [id number] [place] [address] 77955- 5395 Nov, [facility] [id number] [place] [address] 40028- 9044 Nov, [facility] [id number] [place] [address] 18583- 5306 Nov, Back pain M54.9 [facility] [id number] [place] [address] 30549- 0314 Nov, Shortness of breath R06.02 [facility] [id number] [place] [address] 46997- 8595 Nov, [facility] [id number] [place] [address] 69920- 7763 Oct, [facility] [id number] [place] [address] 84490- 0347 Oct, [facility] [id number] [place] [address] 55065- 6393 Oct, [facility] [address], [place] [address] 2917 Oct, [facility] [address], [place] [address]- 3669 Oct, [facility] [address], [place] [address]- 2145 Oct, Back pain M54.9 [facility] [id number] [place] [address] 99159- 5006 Oct, Back pain M54.9 [facility] [id number] [place] [address] 16301- 0862 Oct, [facility] [address], [place] [address]- 7095 September, [facility] [id number] [place] [address] 49608- 6622 September, [facility] [address], [place] [address]- 4902 September, [facility] [id number] [address]- 1552 September, 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 complication E11.49 and Hypotension, unspecified hypotension type I95.9 [facility] [address], [place] [address]- 4910 September, [facility] [address], [place] [address]- 7197 September, [facility] [address], [place] [address]- 1381 September, Back pain M54.9 [facility] [address], [place] [address]- 7352 Aug, [facility] [address], [place] [address]- 4731 Aug, Acute cystitis with hematuria N30.01 ; Ulcer of right foot, unspecified ulcer stage L97.519 ; HTN (hypertension) I10 ; COPD (chronic obstructive pulmonary disease) J44.9 and DM neuro manif type II E11.49 [facility] [id number] [place] [address] 28494- 5124 Aug, Back pain M54.9 [facility] [address] 21754- 9332 Jul, [facility] [id number] [place] [address] 53487- 8486 Jul, Back pain M54.9 [facility] [address] 57926- 6826 Jul, [facility] [id number] [place] [address] 15519- 8676 Jul, DM neuro manif type II E11.49 and Ulcer of right foot, unspecified ulcer stage L97.519 [facility] [id number] [place] [address] 83111- 7629 Jun, [facility] [id number] [place] [address] 52694- 2764 Jun, [facility] [id number] [place] [address] 85787- 9862 May, 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 complication E11.49 ; GERD (gastroesophageal reflux disease) K21.9 and PAD ( peripheral artery disease) I73.9 [facility] [id number] [place] [address] 38404- 4588 May, Decubital ulcer L89.90 ; Diabetes E11.9 and GERD ( gastroesophageal reflux disease) K21.9 [facility] [id number] [place] [address] 34014- 6695 May, [facility] [id number] [place] [address] 10525- 3002 Apr, [facility] [address], [place] [address]- 9268 Mar, [facility] [id number] [place] [address] 38944- 3925 Mar, [facility] [id number] [place] [address] 15997- 8261 Feb, [facility] [id number] [place] [address] 09118- 3634 Feb, [facility] [id number] [place] [address] 91690- 9203 Jan, [facility] [id number] [place] [address] 50979- 3349 Jan, HTN (hypertension) I10 [facility] [id number] [place] [address] 70695- 4405 Jan, [facility] [id number] [place] [address] 25396- 0358 Dec, Back pain M54.9 [facility] [id number] [place] [address] 75691- 0646 Dec, Back pain M54.9 [facility] [id number] [place] [address] 26818 -4875 Dec, Encounter for immunization Z23 and Puncture wound of right foot, initial encounter S91.331A [facility] [id number] [place] [address] 40498- 7080 Dec, [facility] [id number] [place] [address] 81359- 3043 Nov, [facility] [id number] [place] [address] 01580- 1660 Nov, COPD (chronic obstructive pulmonary disease) J44.9 [facility] [id number] [place] [address] 95590- 9421 Nov, [facility] [id number] [address]- 6696 Oct, [facility] [id number] [place] [address] 81855- 2608 Oct, [facility] [id number] [place] [address] 91197- 7374 September, Onychomycosis B35.1 and DM neuro manif type II E11.49 [facility] [id number] [place] [address] 08448- 5531 September, [facility] [id number] [place] [address] 87260- 2254 Aug, [facility] [id number] [place] [address] 28861- 8696 Jul, Sinusitis, unspecified chronicity, unspecified location J32.9 and Cough R05 [facility] [id number] [place] [address] 94515- 4964 Jul, Back pain M54.9 [facility] [id number] [place] [address] 97944- 4620 14 Jun, 2016 Back pain M54.9 [facility] [id number] [place] [address] 49366- 5607 06 Jun, 2016 COPD (chronic obstructive pulmonary disease) J44.9 [facility] [id number] [place] [address] 00751- 7078 May, [facility] [id number] [place] [address] 99958- 2086 May, [facility] [id number] [place] [address] 13686- 4994 May, Back pain M54.9 [facility] [id number] [place] [address] 09913- 6688 May, [facility] [id number] [place] [address] 18835- 8280 13 May, 2016 [facility] [id number] [place] [address] 43071- 4040 12 May, 2016 Diabetes E11.9 [facility] [id number] [place] [address] 84442- 6576 11 May, 2016 Diabetes E11.9 ; GERD [...] Need for hepatitis C screening test Z11.59 [facility] [id number] [place] [address] 17892- 5957 04 May, 2016 HTN (hypertension) I10 [facility] [id number] [place] [address] 70871- 8742 Apr, [facility] [id number] [place] [address] 65682- 0340 Apr, [facility] [id number] [place] [address] 01128- 2803 Apr, [facility] [id number] [place] [address] 25377- 0190 Apr, [facility] [id number] [place] [address] 86973- 3422 Apr, [facility] [id number] [place] [address] 89260- 1787 Mar, [facility] [id number] [place] [address] 57948- 6374 Mar, [facility] [id number] [place] [address] 19528- 8564 Mar, [facility] [id number] [place] [address] 36494- 7040 Mar, [facility] [id number] [place] [address] 31239- 3082 Mar, Dental examination Z01.20 [facility] [id number] [place] [address] 59109- 7750 Feb, [facility] [id number] [place] [address] 77243- 1176 Feb, [facility] [address] 89606- 8101 Feb, Back pain M54.9 [facility] [address] 45313- 8995 Jan, [facility] [id number] [place] [address] 83787- 9419 Jan, [facility] [address] 22268- 4118 Dec, Diabetes E11.9 ; GERD (gastroesophageal reflux disease) K21.9 ; ED (erectile dysfunction) N52.9 ; HTN (hypertension) I10 ; Insomnia G47.00 ; COPD (chronic obstructive pulmonary disease) J44.9 ; Neuropathy G62.9 and Bipolar depression F31.30 [facility] [id number] [place] [address] 49480- 2629 Dec, 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 complication E11.49 and Onychomycosis B35.1 [facility] [id number] [place] [address] 28265- 8721 Dec, [facility] [id number] [place] [address] 60309- 2083 Dec, [facility] [id number] [place] [address] 00332- 1237 Dec, [facility] [id number] [place] [address] 75870- 7090 Dec, [facility] [id number] [address]- 9558 07 Nov, 2015 [facility] [id number] [place] [address] 48703- 2474 05 Nov, 2015 [facility] [address], [place] [address]- 6983 Oct, [facility] [id number] [place] [address] 72451- 3013 Oct, [facility] [id number] [place] [address] 62170- 1662 Oct, Back pain M54.9 [facility] [id number] [place] [address] 87580- 3769 Oct, [facility] [id number] [place] [address] 74684- 6649 Oct, [facility] [id number] [place] [address] 77208- 5520 Oct, [facility] [id number] [place] [address] 59822- 2226 Oct, HTN (hypertension) I10 [facility] [id number] [place] [address] 85078- 0665 Oct, Back pain M54.9 [facility] [id number] [place] [address] 74153- 8904 Oct, Chronic pain syndrome G89.4 [facility] [address], [place] [address]- 6751 September, Back pain M54.9 [facility] [id number] [place] [address] 03938- 0771 September, HTN (hypertension) I10 [facility] [address], [place] [address]- 2871 Aug, Porokeratosis Q82.8 ; Onychomycosis B35.1 and 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 complication E11.49 [facility] [address], [place] [address]- 4210 Aug, GERD (gastroesophageal reflux disease) K21.9 ; Diabetes E11.9 ; HTN (hypertension) I10 ; Insomnia G47.00 ; Restless legs syndrome G25.81 ; COPD (chronic obstructive pulmonary disease) J44.9 ; Back pain M54.9 and Bipolar 1 disorder F31.9 [facility] [id number] [place] [address] 36579- 4293 Aug, [facility] [id number] [place] [address] 31772- 2408 Aug, [facility] [id number] [place] [address] 56030- 7574 Aug, [facility] [id number] [place] [address] 03931- 9151 Aug, [facility] [id number] [place] [address] 99485- 5581 Jul, [facility] [id number] [place] [address] 21176- 0654 Jul, [facility] [id number] [place] [address] 76185- 7557 30 Jul, 2015 [facility] [id number] [place] [address] 45980- 5505 Jul, [facility] [id number] [place] [address] 86645- 7354 15 Jul, 2015 [facility] [id number] [address]- 5535 Jul, [facility] [id number] [place] [address] 04529- 2903 17 Jun, 2015 Decubital ulcer L89.90 ; Diabetes E11.9 ; Back pain M54.9 ; HTN (hypertension) I10 and COPD (chronic obstructive pulmonary disease) J44.9 [facility] [address], [place] [address]- 8433 Jun, [facility] [address] [place] [address] 19911- 6134 Jun, [facility] [address] [place] [address] 80611- 2067 Jun, [facility] [id number] [place] [address] 73128- 0842 Jun, [facility] [address] [place] [address] 56876- 8002 Jun, Diabetes E11.9 ; Insomnia G47.00 ; Decubital ulcer L89.90 ; GERD (gastroesophageal reflux disease) K21.9 ; Back pain M54.9 ; Superficial fungus infection of skin B36.9 and HTN (hypertension) I10 [address] [id number] [id number] Jun, Dental examination Z01.20 [facility] [id number] [place] [address] 66684- 2827 May, [facility] [id number] [place] [address] 49278- 7048 May, [facility] [id number] [place] [address] 59177- 6007 May, [facility] [id number] [place] [address] 58733- 2065 May, Diabetes E11.9 ; HTN (hypertension) I10 and Decubital ulcer L89.90 [facility] [address] [place] [address] 91433- 7616 May, HTN (hypertension) I10 ; Decubital ulcer L89.90 and Diabetes E11.9 [facility] [address], [place] [address]- 4379 Apr, Diabetes E11.9 ; GERD (gastroesophageal reflux disease) K21.9 ; Back pain M54.9 ; HTN (hypertension) I10 ; Restless legs syndrome G25.81 and Decubital ulcer L89.90 [facility] [id number] [place] [address] 90731- 3802 Apr, [facility] [id number] [place] [address] 86361- 0148 Apr, Diabetes E11.9 ; HTN (hypertension) I10 ; Restless legs syndrome G25.81 ; GERD (gastroesophageal reflux disease) K21.9 and COPD ( chronic obstructive pulmonary disease) J44.9 [facility] [id number] [place] [address] 22266- 2900 Mar, [facility] [address] 31482- 9420 Mar, [facility] [id number] [place] [address] 04740- 2530 Mar, Diabetes E11.9 ; Abscess L02.91 and Restless legs syndrome G25.81 [facility] [id number] [place] [address] 97551- 2432 Mar, [facility] [id number] [place] [address] 33336- 3343 Feb, GERD (gastroesophageal reflux disease) K21.9 ; Back pain M54.9 ; ED (erectile dysfunction) N52.9 ; Diabetes E11.9 ; HTN (hypertension) I10 and Insomnia G47.00 [facility] [id number] [place] [address] 88449- 8034 Feb, [facility] [id number] [place] [address] 84574- 1334 Feb, [facility] [id number] [place] [address] 60923- 2651 Jan, [facility] [id number] [place] [address] 29046- 0934 Jan, Diabetes 250.00 ; Nondependent cannabis abuse, continuous 305.21 ; Cough 786.2 ; Schizoaffective disorder, unspecified 295.70 ; Sciatica 724.3 ; Other, mixed, or unspecified nondependent drug abuse, unspecified 305.90 ; Chronic pain 338.29 ; GERD (gastroesophageal reflux disease) 530.81 and HTN (hypertension) 401.9 [facility] [id number] [place] [address] 62215- 1446 Jan, [facility] [address] 38682- 4632 Jan, [facility] [address] 84705- 8327 Jan, Chronic pain associated with significant psychosocial dysfunction 338.4 ; Diabetes mellitus without mention of complication, type I [ juvenile type], uncontrolled 250.03 ; Benign essential hypertension 401.1 ; Schizoaffective disorder, unspecified 295.70 ; Wheezing 786.07 ; Ear ache 388.70 ; Cough 786.2 ; Sciatica 724.3 and Foot pain, bilateral 729.5 [facility] [id number] [place] [address] 93737- 3577 Dec, [facility] [address] 00087- 4127 Dec, [facility] [id number] [place] [address] 76056- 1815 Dec, [facility] [id number] [place] [address] 54639- 7884 Dec, [facility] [id number] [place] [address] 57920- 6183 Dec, [facility] [address] 86659- 8015 Nov, Elevated liver enzymes 790.5 [facility] [id number] [place] [address] 70976- 5086 Nov, [facility] [address] 69363- 7655 15 Nov, 2014 [facility] [address] [address]- 7299 Nov, [facility] [id number] [place] [address] 114669- 7672 Nov, Benign essential hypertension 401.1 ; Diabetes mellitus without mention of complication, type I [juvenile type], uncontrolled 250.03 and Nondependent cannabis abuse, continuous 305.21 [facility] [id number] [place] [address] 46250- 6615 Oct, Cellulitis 682.9 and Benign essential hypertension 401.1 [facility] [id number] [place] [address] 99396- 0594 Oct, [facility] [id number] [place] [address] 90307- 1252 September, [facility] [id number] [place] [address] 19083- 7436 September, [facility] [id number] [place] [address] 62669- 1519 Aug, [facility] [id number] [place] [address] 83486- 0351 Aug, [facility] [address], [place] [address]- 6361 Aug, [facility] [address] [place] [address]- 5694 Aug, [facility] [address], [place] [address]- 8693 Jul, [facility] [id number] [place] [address] [id number]- 0661 Jul, [facility] [address] 3257 Jul, [facility] [id number] [place] [address] 21315- 8907 Jul, [facility] [place] [facility] [address] [id number] [place] [address]- 3069 Jul, [facility] [place] [facility] [address] [id number] [place] [address]- 7430 Jul, [facility] [place] [facility] [address] [id number] [place] [address]- 9967 Jun, [facility] [place] [facility] [address] [id number] [place] [address]- 3930 Jun, [facility] [place] [facility] [address] [id number] [place] [address]- 7883 Jun, [facility] [place] [facility] [address] [id number] [place] [address]- 2830 Jun, [facility] [place] [facility] [address] [id number] [place] [address]- 9556 Jun, [facility] [place] [facility] [address] [id number] [place] [address]- 1817 May, [facility] [place] [facility] [address] [id number] [place] [address] May, [facility] [place] [facility] [address] [id number] [place] [address] May, [facility] [place] [facility] [address] [id number] [place] [address] May, [facility] [place] [facility] [address] [id number] [place] [address] May, [facility] [place] [facility] [address] [id number] [place] [address] May, [facility] [place] [facility] [address] [id number] [place] [address] May, [facility] [place] [facility] [address] [id number] [place] [address] May, [facility] [place] [facility] [address] [id number] [place] [address] Apr, [facility] [place] [facility] [address] [id number] [place] [address] Apr, [facility] [place] [facility] [address] [id number] [place] [address] Apr, [facility] [place] [facility] [address] [id number] [place] [address] Apr, [facility] [place] [facility] [address] [id number] [place] [address] Mar, [facility] [place] [facility] [address] [id number] [place] [address] Mar, [facility] [place] [facility] [address] [id number] [place] [address] Mar, [facility] [place] [facility] [address] [id number] [place] [address] Mar, [facility] [place] [facility] [address] [id number] [place] [address] Feb, [facility] [place] [facility] [address] [id number] [place] [address] Feb, [facility] [place] [facility] [address] [id number] [place] [address] Feb, [facility] [place] [facility] [address] [id number] [place] [address] Feb, [facility] [place] [facility] [address] [id number] [place] [address] Feb, [facility] [place] [facility] [address] [id number] [place] [address] Feb, [facility] [place] [facility] [address] [id number] [place] [address] Jan, [facility] [place] [facility] [address] [id number] [place] [id number] [address] Jan, [facility] [place] [facility] [address] [id number] [place] [address] Jan, [facility] [place] [facility] [address] [id number] [place] [address] Jan, [facility] [place] [facility] [address] [id number] [place] [address] Dec, [facility] [place] [facility] [address] [id number] [place] [address] Dec, [facility] [place] [facility] [address] [id number] [place] [address] Dec, [facility] [place] [facility] [address] [id number] [place] [address] Dec, [facility] [place] [facility] [address] [id number] [place] [address] Dec, [facility] [place] [facility] [address] [id number] [place] [address] Dec, [facility] [place] [facility] [address] [id number] [place] [address] 2004 Oct, [facility] [place] [facility] [address] [id number] [place] [address] Oct, [facility] [place] [facility] [address] [id number] [place] [address] September, [facility] [place] [facility] [address] [id number] [place] [address] September, [facility] [place] [facility] [address] [id number] [place] [address] September, [facility] [place] [facility] [address] [id number] [place] [address] 9567 September, [facility] [place] [facility] [address] [id number] [place] [address] September, [facility] [place] [facility] [address] [id number] [place] [address] September, [facility] [place] [facility] [address] [id number] [place] [address] Aug, [facility] [place] [facility] [address] [id number] [place] [address] Aug, [facility] [place] [facility] [address] [id number] [place] [address] Aug, [facility] [place] [facility] [address] [id number] [place] [address] Aug, [facility] [place] [facility] [address] [id number] [place] [address] Jul, [facility] [place] [facility] [address] [id number] [place] [address] Jul, [facility] [place] [facility] [address] [id number] [place] [address]- [address] Jun, [facility] [place] [facility] [address] [id number] [place] [address] Jun, [facility] [place] [facility] [address] [id number] [place] [address] May, [facility] [place] [facility] [address] [id number] [place] [address] May, [facility] [place] [facility] [address] [id number] [place] [address] Jan, [facility] [place] [facility] [address] [id number] [place] [address] Dec, [facility] [place] [facility] [address] [id number] [place] [address] Jun, [facility] [place] [facility] [address] [id number] [place] [address] 39[address] May, [facility] [place] [facility] [address] [id number] [place] [address] Nov, [facility] [address] [id number], [place] [address] September, [facility] [address] [facility] [id number], [place] [address] Aug, [facility] [address] [facility] [id number], [place] [address] Aug, [facility] [address] [facility] [id number], [place] [address] Aug, [facility] [address] [id number], [place] [address] Aug, [facility] [address] [facility] [id number], [place] [address] Nov, [facility] [address] [facility] [id number][place] [address] Oct, [facility] [address] [facility] [id number], [place] [address] Jul, [facility] [address] [facility] [id number], [place] [address] Feb, [facility] [address] [id number], [place] [address] Feb, [facility] [id number], [place] [address] Apr, [facility] [address] [facility] [id number], [place] [address] Apr, [facility] [address] [facility] [id number], [place] [address] Feb, [facility] [address] [facility] [id number], [place] [address] Feb, [facility] [address] [facility] [id number], [place] [address] Jul, IMMUNIZATIONS No Known Immunizations SOCIAL HISTORY [...]
--- OUTSIDE RECORDS SUMMARY | 2018-09-15 22:31 | XMS REPORT ---
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 Name Role Phone YVES BLEVINS Unavailable PROBLEMS Type Condition ICD9-CM Code [id number] Code Onset Dates Condition Status SNOMED Code Problem HTN (hypertension) I10 Active 71029045 Problem Restless legs syndrome G25.81 Active 716551569 Problem GERD (gastroesophageal reflux disease) K21.9 Active 239266964 Problem Chronic hepatitis C without hepatic coma B18.2 Active 491726013 Problem ED (erectile dysfunction) N52.9 Active 985202129 Problem PAD (peripheral artery disease) I73.9 Active 625823590 Problem Ulcer of right foot, unspecified ulcer stage L97.519 Active 01300829 Problem 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 380972208 Problem COPD (chronic obstructive pulmonary disease) J44.9 Active 36895129 Problem DM neuro manif type II E11.49 Active 96669831 Problem Sinusitis, unspecified chronicity, unspecified location J32.9 Active 86221463 ALLERGIES Substance Reaction Event Type Date Status Latex Unknown Drug Allergy Nov, Active Thorazine Unknown Drug Allergy Nov, Active Haldol Unknown Drug Allergy Nov, Active ENCOUNTERS Encounter Location Date Diagnosis [facility] [id number] [address] Jan, [facility] [id number] [address] Jan, [facility] [id number] [address] Dec, Back pain M54.9 [facility] [id number] [address] 3[address] Dec, [facility] [id number] [place] [address] 16168- 2643 Dec, Upper respiratory tract infection, unspecified type J06.9 [facility] [address] [address]- 7141 Dec, [facility] [id number] [place] [address] 13117 -9392 Dec, Acute suppurative otitis media of right ear without spontaneous rupture of tympanic membrane, recurrence not specified H66.001 and Acute nasopharyngitis J00 [facility] [address] [address]- 2471 Dec, Back pain M54.9 [facility] [address] 62387- 7022 Dec, Foot infection L08.9 and 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 complication E11.49 [facility] [address] 19844- 1602 Nov, Cellulitis of toe of right foot L03.031 ; Polyneuropathy in diseases classified elsewhere G63 and HTN (hypertension) I10 [facility] [address] 7[address]- 2320 Nov, [facility] [id number] [place] [address] 60481- 5390 Nov, [facility] [address] 26185- 1060 Nov, Back pain M54.9 [facility] [address] 46941- 5831 Nov, Shortness of breath R06.02 [facility] [id number] [place] [address] 27525- 3669 Nov, [facility] [id number] [place] [address] 01215- 6847 Oct, [facility] [address] 35475- 5126 Oct, [facility] [address], [place] [address] 4237 Oct, [facility] [id number] [place] [address] 54201- 7660 Oct, [facility] [id number] [place] [address] 64963- 7162 Oct, [facility] [id number] [place] [address] 48631- 9246 Oct, Back pain M54.9 [facility] [id number] [place] [address] 01571- 4116 Oct, Back pain M54.9 [facility] [id number] [place] [address] 41904- 3232 Oct, [facility] [id number] [place] [address] 81028- 6039 September, [facility] [id number] [place] [address] 92986- 3108 September, [facility] [id number] [place] [address] 70372- 2243 September, [facility] [id number] [place] [address] 02441- 0306 September, 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 complication E11.49 and Hypotension, unspecified hypotension type I95.9 [facility] [address], [place] [address] 0550 September, [facility] [id number] [place] [address] 98370- 6447 September, [facility] [address], [place] [address]- 8424 September, Back pain M54.9 [facility] [id number] [place] [address] 60211- 5502 Aug, [address] [facility] [address] 99771- 3814 Aug, Acute cystitis with hematuria N30.01 ; Ulcer of right foot, unspecified ulcer stage L97.519 ; HTN (hypertension) I10 ; COPD (chronic obstructive pulmonary disease) J44.9 and DM neuro manif type II E11.49 [facility] [address] 6[address]99- 9580 Aug, Back pain M54.9 [facility] [address] 43381- 6292 Jul, [facility] [facility] [address] 04032- 1889 Jul, Back pain M54.9 [facility] [address] 06972- 5310 Jul, [place] [facility] [address] 15116- 5791 Jul, DM neuro manif type II E11.49 and Ulcer of right foot, unspecified ulcer stage L97.519 [place] [facility] [address] 19516- 5319 Jun, [facility] [address] 88132- 7372 Jun, [place] [facility] [address] 07381- 3648 May, 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 complication E11.49 ; GERD (gastroesophageal reflux disease) K21.9 and PAD ( peripheral artery disease) I73.9 [place] [facility] [address] 13107- 4380 May, Decubital ulcer L89.90 ; Diabetes E11.9 and GERD ( gastroesophageal reflux disease) K21.9 [place] [facility] [address] 61515- 4295 May, [facility] [address], [place] [address]- 8339 Apr, [facility] [id number] [place] [address] 45908- 7789 Mar, [facility] [id number] [place] [address] 81186- 3882 Mar, [facility] [id number] [place] [address] 05115- 5161 Feb, [facility] [id number] [place] [address] 44059- 3813 Feb, [facility] [id number] [place] [address] 92983- 3829 Jan, [facility] [id number] [place] [address] 13444- 8018 Jan, HTN (hypertension) I10 [facility] [id number] [place] [address] 45204- 6942 Jan, [facility] [id number] [place] [address] 28005- 0504 Dec, Back pain M54.9 [facility] [id number] [place] [address] 50216- 7301 Dec, Back pain M54.9 [facility] [id number] [place] [address] 93813 -4625 Dec, Encounter for immunization Z23 and Puncture wound of right foot, initial encounter S91.331A [facility] [id number] [place] [address] 48929- 6923 Dec, [facility] [id number] [place] [address] 87689- 5975 Nov, [facility] [id number] [place] [address] 84546- 2344 Nov, COPD (chronic obstructive pulmonary disease) J44.9 [facility] [address], [place] [address]- 1934 Nov, [facility] [id number] [place] [address] 39109- 4092 Oct, [facility] [id number] [place] [address] 91073- 2296 Oct, [facility] [id number] [place] [address] 03848- 8896 September, Onychomycosis B35.1 and DM neuro manif type II E11.49 [facility] [id number] [place] [address] 29938- 6932 September, [facility] [id number] [place] [address] 58828- 3280 Aug, [facility] [id number] [place] [address] 97327- 7489 Jul, Sinusitis, unspecified chronicity, unspecified location J32.9 and Cough R05 [facility] [id number] [place] [address] 25538- 8102 Jul, Back pain M54.9 [facility] [id number] [place] [address] 00211- 8545 14 Jun, 2016 Back pain M54.9 [facility] [id number] [place] [address] 90965- 2769 06 Jun, 2016 COPD (chronic obstructive pulmonary disease) J44.9 [facility] [id number] [place] [address] 02070- 4275 May, [facility] [id number] [place] [address] 57063- 1637 May, [facility] [id number] [place] [address] 38550- 1300 May, Back pain M54.9 [facility] [id number] [place] [address] 84379- 4430 16 May, 2016 [facility] [address], [place] [address]- 6830 13 May, 2016 [facility] [id number] [place] [address] 131728- 4145 May, Diabetes E11.9 [facility] [address], [place] [address]- 6347 11 May, 2016 Diabetes E11.9 ; GERD [...] Need for hepatitis C screening test Z11.59 [facility] [id number] [place] [address] 21335- 8670 May, HTN (hypertension) I10 [facility] [address], [place] [address]- 8260 Apr, [facility] [id number] [place] [address] 82938- 8777 Apr, [facility] [address], [place] [address]- 0941 Apr, [facility] [id number] [place] [address] 12944- 8949 Apr, [facility] [address], [place] [address]- 5065 Apr, [facility] [id number] [place] [address] 06620- 3965 Mar, [facility] [address], [place] [address]- 7439 Mar, [facility] [id number] [place] [address] 27540- 4232 Mar, [facility] [address], [place] [address]- 1553 Mar, [facility] [id number] [place] [address] 46188- 1265 Mar, Dental examination Z01.20 [facility] [id number] [place] [address] 41582- 8465 Feb, [facility] [id number] [place] [address] 51109- 2709 Feb, [facility] [id number] [place] [address] 67154- 1265 Feb, Back pain M54.9 [facility] [id number] [place] [address] 18318- 1435 Jan, [facility] [id number] [place] [address] 01219- 4306 Jan, [facility] [id number] [place] [address] 29536- 6561 Dec, Diabetes E11.9 ; GERD (gastroesophageal reflux disease) K21.9 ; ED (erectile dysfunction) N52.9 ; HTN (hypertension) I10 ; Insomnia G47.00 ; COPD (chronic obstructive pulmonary disease) J44.9 ; Neuropathy G62.9 and Bipolar depression F31.30 [facility] [id number] [place] [address] 82589- 2872 Dec, 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 complication E11.49 and Onychomycosis B35.1 [facility] [id number] [place] [address] 97098- 0072 Dec, [facility] [id number] [place] [address] 91764- 0322 Dec, [facility] [id number] [place] [address] 35397- 9308 Dec, [facility] [address], [place] [address]- 7436 Dec, [facility] [address], [place] [address]- 9363 Nov, [facility] [address], [place] [address]- 3894 Nov, [facility] [id number] [place] [address] 43847- 3811 Oct, [facility] [address] [facility] [id number] [place] [address] 15546- 5436 Oct, [facility] [id number] [place] [address] 74717- 7720 Oct, Back pain M54.9 [facility] [address], [place] [address]- 2383 Oct, [facility] [id number] [place] [address] 07256- 4889 Oct, [facility] [address], [place] [address]- 3378 Oct, [facility] [id number] [place] [address] 02666- 5348 Oct, HTN (hypertension) I10 [facility] [address], [place] [address]- 5915 Oct, Back pain M54.9 [facility] [address], [place] [address]- 2593 Oct, Chronic pain syndrome G89.4 [facility] [address], [place] [address]- 1204 September, Back pain M54.9 [facility] [address], [place] [address]- 1924 September, HTN (hypertension) I10 [facility] [id number] [place] [address] 56057- 5399 Aug, Porokeratosis Q82.8 ; Onychomycosis B35.1 and 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 complication E11.49 [facility] [id number] [place] [address] 64061- 6826 Aug, GERD (gastroesophageal reflux disease) K21.9 ; Diabetes E11.9 ; HTN (hypertension) I10 ; Insomnia G47.00 ; Restless legs syndrome G25.81 ; COPD (chronic obstructive pulmonary disease) J44.9 ; Back pain M54.9 and Bipolar 1 disorder F31.9 [facility] [id number] [place] [address] 51663- 5121 Aug, [facility] [id number] [place] [address] 59846- 8957 Aug, [facility] [id number] [place] [address] 70933- 6862 Aug, [facility] [id number] [place] [address] 43688- 8047 Aug, [facility] [id number] [place] [address] 13478- 0820 Jul, [facility] [id number] [place] [address] 15543- 1331 Jul, [facility] [id number] [place] [address] 96147- 3465 30 Jul, 2015 [facility] [id number] [place] [address] 84363- 0380 16 Jul, 2015 [facility] [address], [place] [address]- 3139 15 Jul, 2015 [facility] [id number] [place] [address] 983420- 6117 Jul, [facility] [id number] [address]- 0814 Jun, Decubital ulcer L89.90 ; Diabetes E11.9 ; Back pain M54.9 ; HTN (hypertension) I10 and COPD (chronic obstructive pulmonary disease) J44.9 [facility] [id number] [place] [address] 93563- 2793 Jun, [facility] [id number] [place] [address] 12257- 6830 Jun, [facility] [id number] [place] [address] 04256- 9272 Jun, [facility] [id number] [place] [address] 19263- 5548 Jun, [facility] [id number] [place] [address] 48678- 5726 Jun, Diabetes E11.9 ; Insomnia G47.00 ; Decubital ulcer L89.90 ; GERD (gastroesophageal reflux disease) K21.9 ; Back pain M54.9 ; Superficial fungus infection of skin B36.9 and HTN (hypertension) I10 [address] [id number] [id number] Jun, Dental examination Z01.20 [place] [id number] [place] [address] 95626- 5638 May, [place] [id number] [place] [address] 65678- 9208 May, [place] [id number] [place] [address] 25446- 2051 May, [facility] [id number] [place] [address] 81120- 7616 May, Diabetes E11.9 ; HTN (hypertension) I10 and Decubital ulcer L89.90 [facility] [id number] [place] [address] 25839- 8473 May, HTN (hypertension) I10 ; Decubital ulcer L89.90 and Diabetes E11.9 [place] [facility] [address] 75351- 4336 30 Apr, 2015 Diabetes E11.9 ; GERD (gastroesophageal reflux disease) K21.9 ; Back pain M54.9 ; HTN (hypertension) I10 ; Restless legs syndrome G25.81 and Decubital ulcer L89.90 [facility] [address] 96256- 1775 Apr, [facility] [address] 51166- 9170 Apr, Diabetes E11.9 ; HTN (hypertension) I10 ; Restless legs syndrome G25.81 ; GERD (gastroesophageal reflux disease) K21.9 and COPD ( chronic obstructive pulmonary disease) J44.9 [place] [address] 03153- 3069 Mar, [place] [facility] [address] 16339- 0916 Mar, [place] [facility] [address] 22607- 3387 Mar, Diabetes E11.9 ; Abscess L02.91 and Restless legs syndrome G25.81 [place] [facility] [address] 05421- 4174 Mar, [facility] [address] 62996- 1269 Feb, GERD (gastroesophageal reflux disease) K21.9 ; Back pain M54.9 ; ED (erectile dysfunction) N52.9 ; Diabetes E11.9 ; HTN (hypertension) I10 and Insomnia G47.00 [place] [facility] [address] 60537- 0509 Feb, [place] [facility] [address] 29737- 0231 Feb, [facility] [id number] [place] [address] 22825- 0155 Jan, [facility] [id number] [place] [address] 11090- 8903 Jan, Diabetes 250.00 ; Nondependent cannabis abuse, continuous 305.21 ; Cough 786.2 ; Schizoaffective disorder, unspecified 295.70 ; Sciatica 724.3 ; Other, mixed, or unspecified nondependent drug abuse, unspecified 305.90 ; Chronic pain 338.29 ; GERD (gastroesophageal reflux disease) 530.81 and HTN (hypertension) 401.9 [facility] [id number] [place] [address] 91763- 4539 Jan, [facility] [address] 90924- 4341 Jan, [facility] [id number] [place] [address] 50582- 8585 Jan, Chronic pain associated with significant psychosocial dysfunction 338.4 ; Diabetes mellitus without mention of complication, type I [ juvenile type], uncontrolled 250.03 ; Benign essential hypertension 401.1 ; Schizoaffective disorder, unspecified 295.70 ; Wheezing 786.07 ; Ear ache 388.70 ; Cough 786.2 ; Sciatica 724.3 and Foot pain, bilateral 729.5 [facility] [id number] [place] [address] 99972- 5131 Dec, [facility] [id number] [place] [address] 83457- 9978 Dec, [facility] [id number] [place] [address] 59410- 6931 Dec, [facility] [id number] [place] [address] 05764- 7089 Dec, [place] [address] 29881- 6213 Dec, [facility] [id number] [place] [address] 63862- 0668 Nov, Elevated liver enzymes 790.5 [place] [facility] [address] 32541- 1640 Nov, [facility] [address], [place] [address]- 1724 Nov, [facility] [address] [address]- 1034 Nov, [facility] [address], [place] [address]- 5197 Nov, Benign essential hypertension 401.1 ; Diabetes mellitus without mention of complication, type I [juvenile type], uncontrolled 250.03 and Nondependent cannabis abuse, continuous 305.21 [facility] [id number] [place] [address] 75264- 0616 Oct, Cellulitis 682.9 and Benign essential hypertension 401.1 [facility] [id number] [place] [address] 52842- 8696 Oct, [facility] [id number] [place] [address]- [address] September, [facility] [id number] [address] September, [facility] [id number] [place] [address]- [address] Aug, [facility] [id number] [address] Aug, [facility] [id number] [address] Aug, [facility] [id number], [place] [address] Aug, [facility] [id number] [address] Jul, [facility] [id number] [address] Jul, [facility] [id number] [place] [address]- [address] Jul, [facility] [place] [facility] [address] [id number] [place] [address] Jul, [facility] [place] [facility] [address] [id number] [place] [address] Jul, [facility] [place] [facility] [address] [id number] [place] [address] Jul, [facility] [place] [facility] [address] [id number] [place] [address] Jun, [facility] [place] [facility] [address] [id number] [place] [address] Jun, [facility] [place] [facility] [address] [id number] [place] [address] Jun, [facility] [place] [facility] [address] [id number] [place] [address] Jun, [facility] [place] [facility] [address] [id number] [place] [address] Jun, [facility] [place] [facility] [address] [id number] [place] [address] May, [facility] [place] [facility] [address] [facility] [id number] [place] [address] May, [facility] [place] [facility] [address] [id number] [place] [address]68 May, [facility] [place] [facility] [address] [id number] [place] [place] [address] May, [facility] [place] [facility] [address] [id number] [place] [address] May, [facility] [place] [facility] [address] [id number] [place] [address] May, [facility] [place] [facility] [address] [facility] [id number] [place] [address] May, [facility] [place] [facility] [address] [id number] [place] [address] May, [facility] [place] [facility] [address] [id number] [place] [address] Apr, [facility] [place] [facility] [address] [id number] [place] [address] Apr, [facility] [place] [facility] [address] [id number] [place] [address] Apr, [facility] [place] [facility] [address] [id number] [place] [address] Apr, [facility] [place] [facility] [address] [id number] [place] [address] Mar, [facility] [place] [facility] [address] [id number] [place] [address] Mar, [facility] [place] [facility] [address] [id number] [place] [address] Mar, [facility] [place] [facility] [address] [id number] [place] [address] Mar, [facility] [place] [facility] [address] [id number] [place] [address] Feb, [facility] [place] [facility] [address] [id number] [place] [address] Feb, [facility] [place] [facility] [address] [id number] [place] [address] Feb, [facility] [place] [facility] [address] [id number] [place] [address] Feb, [facility] [place] [facility] [address] [id number] [place] [address] Feb, [facility] [place] [facility] [address] [id number] [place] [address] Feb, [facility] [place] [facility] [address] [id number] [place] [address] Jan, [facility] [place] [facility] [address] [id number] [place] [address] Jan, [facility] [place] [facility] [address] [id number] [place] [address] Jan, [facility] [place] [facility] [address] [id number] [place] [address] Jan, [facility] [place] [facility] [address] [id number] [place] [address] Dec, [facility] [place] [facility] [address] [id number] [place] [address] Dec, [facility] [place] [facility] [address] [id number] [place] [address] Dec, [facility] [place] [facility] [address] [id number] [place] [address] Dec, [facility] [place] [facility] [address] [id number] [place] [address] Dec, [facility] [place] [facility] [address] [id number] [place] [address] Dec, [facility] [place] [facility] [address] [id number] [place] [address] Oct, [facility] [place] [facility] [address] [id number] [place] [address] 7784 Oct, [facility] [place] [facility] [address] [id number], [place] [address] September, [facility] [place] [facility] [address] [id number] [place] [address] September, [facility] [place] [facility] [address] [id number] [place] [address] September, [facility] [place] [facility] [address] [id number] [place] [address] September, [facility] [place] [facility] [address] [id number] [place] [address] September, [facility] [address] [id number] [place] [address] September, [facility] [place] [facility] [address] [id number] [place] [address] Aug, [facility] [place] [facility] [address] [id number] [place] [address]65 Aug, [facility] [place] [facility] [address] [id number] [place] [address] Aug, [facility] [place] [facility] [address] [id number] [place] [address] Aug, [facility] [place] [facility] [address] [id number] [place] [address] Jul, [facility] [place] [facility] [address] [id number] [place] [address] Jul, [facility] [place] [facility] [address] [id number] [place] [address]- [address] Jun, [facility] [place] [facility] [address] [id number] [place] [address] Jun, [facility] [place] [facility] [address] [id number] [place] [address] May, [facility] [place] [facility] [address] [id number] [place] [address] May, [facility] [place] [facility] [address] [id number] [place] [address] Jan, [facility] [place] [facility] [address] [id number] [place] [address] Dec, [facility] [place] [facility] [address] [id number] [place] [address]- [address] Jun, [facility] [place] [facility] [address] [id number] [place] [address] 285[address] May, [facility] [place] [facility] [address] [id number] [place] [address]- 264[address] Nov, [facility] [place] [facility] [address] [id number] [place] [address] September, [facility] [place] [facility] [address] [id number] [place] [address] Aug, [facility] [place] [facility] [address] [id number] [place] [address]- [address] Aug, [facility] [address] [id number] [place] [address] Aug, [facility] [place] [facility] [address] [id number] [place] [address] 12[address] Aug, [facility] [address] [id number] [place] [address] Nov, [facility] [address] [id number] [place] [address] Oct, [facility] [place] [facility] [address] [id number] [place] [address] Jul, [facility] [address] [id number], [place] [address] Feb, [facility] [place] [facility] [address] [id number], [place] [address] Feb, [facility] [place] [facility] [address] [id number], [place] [address] Apr, [facility] [place] [facility] [address] [id number] [place] [address] Apr, [facility] [place] [facility] [address] [id number], [place] [address]- [address] Feb, [facility] [place] [facility] [address] [id number], [place] [address] Feb, [facility] [place] [facility] [address] [id number], [place] [address] Jul, IMMUNIZATIONS No Known Immunizations SOCIAL HISTORY Never Assessed REASON FOR VISIT Hypertension- Rosanne Schaffer RN PLAN OF CARE Activity Details Follow Up 2 Weeks Reason: VITAL SIGNS Height 70 in 2017-11-26 Weight 231 lbs 2017-11-26 Temperature 98.0 degrees Fahrenheit 2017-11-26 Heart Rate 70 bpm 2017-11-26 Respiratory Rate 18 2017-11-26 BMI 33.14 kg/m2 2017-11-26 Blood pressure systolic 142 mmHg 2017-11-26 Blood pressure diastolic 98 mmHg 2017-11-26 MEDICATIONS Medication Instructions Dosage Frequency Start Date End Date Duration Status Ranitidine HCl 150 MG TAKE ONE TABLET BY MOUTH TWICE DAILY 90 Active Lisinopril 20 mg Orally Once a day 1 tablet 24h Oct, 30 day(s) Active Elavil 75 by oral route at bedtime 1 tablet Dec, Active Bactrim DS 800-160 MG Orally Twice a day 1 tablet 12h Nov,Nov 10 day(s) Active Lyrica 150 MG Orally Twice a day 1 capsule 12h September, 28 days Active benztropine 1 mg take 1 tablet (1 mg) by oral route 3 times per day Dec, Active Ropinirole HCl 3 MG TAKE ONE TABLET BY MOUTH ONCE DAILY 1 TO 3 HOURS BEFORE AT BEDTIME 90 Active Invega 6 MG Orally at bedtime 1 tablet Active Depakote 500 mg Orally 4 times a day 1 tablet 6h May, Active Cymbalta 60 mg Orally Once a day 1 capsule 24h May, Active Hydrocodone-Ibuprofen 7.5-200 MG Orally 3 times a day 1 tablet as needed 8h Nov, 28 days Active RESULTS No Results PROCEDURES Procedure Date Ordered Result Body Site [facility] VISIT ESTABLISHED PATIENT November 26, 2017 INSTRUCTIONS MEDICATIONS ADMINISTERED No Known Medications [...]
--- OUTSIDE RECORDS SUMMARY | 2018-09-15 22:31 | XMS REPORT ---
Author Author YVES BLEVINS [facility] Address [address] [place] [address] Care Team Providers Care Microbiological Analyst Name Role Phone YVES BLEVINS Unavailable PROBLEMS Type Condition ICD9-CM Code RXO29-QT Code Onset Dates Condition Status SNOMED Code Problem HTN (hypertension) I10 Active 39039407 Problem Restless legs syndrome G25.81 Active 024971180 Problem GERD (gastroesophageal reflux disease) K21.9 Active 654675505 Problem Chronic hepatitis C without hepatic coma B18.2 Active 264071546 Problem ED (erectile dysfunction) N52.9 Active 327503085 Problem PAD (peripheral artery disease) I73.9 Active 584940487 Problem Ulcer of right foot, unspecified ulcer stage L97.519 Active 53694903 Problem 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 344745682 Problem COPD (chronic obstructive pulmonary disease) J44.9 Active 90022666 Problem DM neuro manif type II E11.49 Active 03990007 Problem Sinusitis, unspecified chronicity, unspecified location J32.9 Active 10360281 ALLERGIES No Information ENCOUNTERS Encounter Location Date Diagnosis [facility] [address] [address] Jan, [facility] [id number] [place] [address] 08918- 7829 Jan, [facility] [id number] [place] [address] 77509- 0831 Dec, Back pain M54.9 [facility] [id number] [place] [address] 56798- 5830 Dec, [facility] [id number] [place] [address] 86597- 9958 Dec, Upper respiratory tract infection, unspecified type J06.9 [place] [id number] [place] [address] 73861- 4035 Dec, [facility] [id number] [place] [address] 46855 -5079 Dec, Acute suppurative otitis media of right ear without spontaneous rupture of tympanic membrane, recurrence not specified H66.001 and Acute nasopharyngitis J00 [facility] [address] 25121- 1018 Dec, Back pain M54.9 [facility] [id number] [place] [address] 73726- 8236 Dec, Foot infection L08.9 and 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 complication E11.49 [facility] [id number] [place] [address] 46310- 8469 Nov, Cellulitis of toe of right foot L03.031 ; Polyneuropathy in diseases classified elsewhere G63 and HTN (hypertension) I10 [facility] [id number] [place] [address] 19301- 6684 Nov, [facility] [id number] [place] [address] 15852- 7059 Nov, [facility] [id number] [place] [address] 80917- 1729 Nov, Back pain M54.9 [facility] [id number] [place] [address] 77024- 9634 Nov, Shortness of breath R06.02 [facility] [id number] [place] [address] 03507- 4264 Nov, [facility] [id number] [place] [address] 88687- 6319 Oct, [facility] [id number] [place] [address] 59996- 6107 Oct, [facility] [id number] [place] [address] 07952- 3357 Oct, [facility] [address] [address] 3145 Oct, [facility] [address], [place] [address] 0051 Oct, [facility] [address], [place] [address]- 4629 Oct, Back pain M54.9 [facility] [id number] [place] [address] 80193- 0366 Oct, Back pain M54.9 [facility] [id number] [place] [address] 19749- 2983 Oct, [facility] [address] [address] 3886 September, [facility] [id number] [place] [address] 74074- 2687 September, [facility] [address], [place] [address] 9543 September, [facility] [address] [address] 0063 September, 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 complication E11.49 and Hypotension, unspecified hypotension type I95.9 [facility] [address], [place] [address] 5055 September, [facility] [address], [place] [address]- 9133 September, [facility] [address], [place] [address]- 2391 September, Back pain M54.9 [facility] [address], [place] [address]- 2419 Aug, [facility] [address], [place] [address]- 9405 Aug, Acute cystitis with hematuria N30.01 ; Ulcer of right foot, unspecified ulcer stage L97.519 ; HTN (hypertension) I10 ; COPD (chronic obstructive pulmonary disease) J44.9 and DM neuro manif type II E11.49 [facility] [id number] [place] [address] 16404- 8469 Aug, Back pain M54.9 [facility] [facility] [address] 06894- 1158 Jul, [facility] [id number] [place] [address] 06530- 0506 Jul, Back pain M54.9 [facility] [facility] [address] 95352- 9101 Jul, [facility] [facility] [id number] [place] [address] 32489- 9674 Jul, DM neuro manif type II E11.49 and Ulcer of right foot, unspecified ulcer stage L97.519 [facility] [id number] [place] [address] 50051- 5333 Jun, [facility] [id number] [place] [address] 24737- 3363 Jun, [facility] [facility] [id number] [place] [address] 61693- 1433 May, 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 complication E11.49 ; GERD (gastroesophageal reflux disease) K21.9 and PAD ( peripheral artery disease) I73.9 [place] [id number] [place] [address] 80994- 7512 May, Decubital ulcer L89.90 ; Diabetes E11.9 and GERD ( gastroesophageal reflux disease) K21.9 [facility] [id number] [place] [address] 73141- 6769 May, [facility] [id number] [place] [address] 38886- 8847 Apr, [facility] [address], [place] [address]- 0465 Mar, [facility] [id number] [place] [address] 67524- 2148 Mar, [facility] [id number] [place] [address] 40453- 7546 Feb, [facility] [id number] [place] [address] 03897- 0815 Feb, [facility] [id number] [place] [address] 79706- 0444 Jan, [facility] [id number] [place] [address] 84584- 7199 Jan, HTN (hypertension) I10 [facility] [id number] [place] [address] 34537- 4215 Jan, [facility] [id number] [place] [address] 58397- 8451 Dec, Back pain M54.9 [facility] [id number] [place] [address] 33288- 7892 Dec, Back pain M54.9 [facility] [id number] [place] [address] 79528 -6691 Dec, Encounter for immunization Z23 and Puncture wound of right foot, initial encounter S91.331A [facility] [id number] [place] [address] 71528- 0823 Dec, [facility] [id number] [place] [address] 97297- 2483 Nov, [facility] [id number] [place] [address] 99359- 2236 Nov, COPD (chronic obstructive pulmonary disease) J44.9 [facility] [id number] [place] [address] 77298- 5705 Nov, [facility] [address] [address]- 8801 Oct, [facility] [id number] [place] [address] 06968- 4403 Oct, [facility] [id number] [place] [address] 88429- 6533 September, Onychomycosis B35.1 and DM neuro manif type II E11.49 [facility] [id number] [place] [address] 41734- 8366 September, [facility] [id number] [place] [address] 38489- 4418 Aug, [facility] [id number] [place] [address] 39568- 8192 Jul, Sinusitis, unspecified chronicity, unspecified location J32.9 and Cough R05 [facility] [id number] [place] [address] 91974- 0148 Jul, Back pain M54.9 [facility] [id number] [place] [address] 66356- 6650 14 Jun, 2016 Back pain M54.9 [facility] [id number] [place] [address] 52869- 6565 06 Jun, 2016 COPD (chronic obstructive pulmonary disease) J44.9 [facility] [id number] [place] [address] 79837- 6487 May, [facility] [id number] [place] [address] 29851- 1658 May, [facility] [id number] [place] [address] 26636- 2306 May, Back pain M54.9 [facility] [id number] [place] [address] 78735- 3603 May, [facility] [id number] [place] [address] 16242- 0270 13 May, 2016 [facility] [id number] [place] [address] 66813- 2450 12 May, 2016 Diabetes E11.9 [facility] [id number] [place] [address] 83783- 8221 11 May, 2016 Diabetes E11.9 ; GERD [...] Need for hepatitis C screening test Z11.59 [facility] [id number] [place] [address] 30551- 4152 04 May, 2016 HTN (hypertension) I10 [facility] [id number] [place] [address] 50877- 5158 Apr, [facility] [id number] [place] [address] 19173- 3776 Apr, [facility] [id number] [place] [address] 63752- 6865 Apr, [facility] [id number] [place] [address] 37040- 3820 Apr, [facility] [id number] [place] [address] 41411- 7461 Apr, [facility] [id number] [place] [address] 24144- 9243 Mar, [facility] [id number] [place] [address] 54140- 1165 Mar, [facility] [id number] [place] [address] 03736- 7274 Mar, [facility] [id number] [place] [address] 64111- 2559 Mar, [facility] [id number] [place] [address] 48824- 5298 Mar, Dental examination Z01.20 [facility] [id number] [place] [address] 48330- 2769 Feb, [facility] [id number] [place] [address] 94361- 2124 Feb, [facility] [address] 27643- 5062 Feb, Back pain M54.9 [facility] [address] 37277- 1409 Jan, [facility] [id number] [place] [address] 03263- 2052 Jan, [facility] [address] 04699- 1421 Dec, Diabetes E11.9 ; GERD (gastroesophageal reflux disease) K21.9 ; ED (erectile dysfunction) N52.9 ; HTN (hypertension) I10 ; Insomnia G47.00 ; COPD (chronic obstructive pulmonary disease) J44.9 ; Neuropathy G62.9 and Bipolar depression F31.30 [facility] [address] [place] [address] 14991- 6987 Dec, 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 complication E11.49 and Onychomycosis B35.1 [facility] [id number] [place] [address] 08599- 5285 Dec, [facility] [id number] [place] [address] 67525- 4961 Dec, [facility] [id number] [place] [address] 89000- 0238 Dec, [facility] [id number] [place] [address] 43295- 9584 Dec, [facility] [address] [address]- 4179 07 Nov, 2015 [facility] [address] [place] [address] 99151- 3658 05 Nov, 2015 [facility] [address] [address]- 1167 Oct, [facility] [id number] [place] [address] 91567- 0809 Oct, [facility] [id number] [place] [address] 72979- 1996 Oct, Back pain M54.9 [facility] [id number] [place] [address] 01191- 2758 Oct, [facility] [id number] [place] [address] 73423- 7940 Oct, [facility] [id number] [place] [address] 94586- 8004 Oct, [facility] [address] [place] [address] 17091- 3338 Oct, HTN (hypertension) I10 [facility] [address] [place] [address] 07634- 0082 Oct, Back pain M54.9 [facility] [address] [place] [address] 56544- 7555 Oct, Chronic pain syndrome G89.4 [facility] [address] [address]- 5707 September, Back pain M54.9 [facility] [id number] [place] [address] 05637- 7731 September, HTN (hypertension) I10 [facility] [address] [address]- 8508 Aug, Porokeratosis Q82.8 ; Onychomycosis B35.1 and 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 complication E11.49 [facility] [address], [place] [address]- 8818 Aug, GERD (gastroesophageal reflux disease) K21.9 ; Diabetes E11.9 ; HTN (hypertension) I10 ; Insomnia G47.00 ; Restless legs syndrome G25.81 ; COPD (chronic obstructive pulmonary disease) J44.9 ; Back pain M54.9 and Bipolar 1 disorder F31.9 [facility] [id number] [place] [address] 75724- 5318 Aug, [facility] [id number] [place] [address] 41975- 4507 Aug, [facility] [id number] [place] [address] 62835- 8097 Aug, [facility] [id number] [place] [address] 63015- 0598 Aug, [facility] [id number] [place] [address] 57853- 3794 Jul, [facility] [id number] [place] [address] 85411- 2187 Jul, [facility] [id number] [place] [address] 22698- 6438 30 Jul, 2015 [facility] [id number] [place] [address] 46046- 5395 Jul, [facility] [id number] [place] [address] 63194- 2501 15 Jul, 2015 [facility] [address] [address]- 0244 Jul, [facility] [id number] [place] [address] 83630- 7564 17 Jun, 2015 Decubital ulcer L89.90 ; Diabetes E11.9 ; Back pain M54.9 ; HTN (hypertension) I10 and COPD (chronic obstructive pulmonary disease) J44.9 [facility] [address] [address]- 1932 Jun, [facility] [address] [place] [address] 54282- 4574 Jun, [facility] [address] [place] [address] 18841- 7234 Jun, [facility] [id number] [place] [address] 60975- 9370 Jun, [facility] [address] [place] [address] 60671- 8983 Jun, Diabetes E11.9 ; Insomnia G47.00 ; Decubital ulcer L89.90 ; GERD (gastroesophageal reflux disease) K21.9 ; Back pain M54.9 ; Superficial fungus infection of skin B36.9 and HTN (hypertension) I10 [address] AV[id number] [id number] Jun, Dental examination Z01.20 [facility] [address] [place] [address] 09635- 8846 May, [place] [id number] [place] [address] 57076- 9393 May, [place] [address] [place] [address] 28804- 0175 May, [place] [id number] [place] [address] 61580- 4070 May, Diabetes E11.9 ; HTN (hypertension) I10 and Decubital ulcer L89.90 [facility] [address] [place] [address] 35344- 3907 May, HTN (hypertension) I10 ; Decubital ulcer L89.90 and Diabetes E11.9 [facility] [address] [address]- 2382 Apr, Diabetes E11.9 ; GERD (gastroesophageal reflux disease) K21.9 ; Back pain M54.9 ; HTN (hypertension) I10 ; Restless legs syndrome G25.81 and Decubital ulcer L89.90 [facility] [id number] [place] [address] 64842- 7391 Apr, [facility] [id number] [place] [address] 93208- 4987 Apr, Diabetes E11.9 ; HTN (hypertension) I10 ; Restless legs syndrome G25.81 ; GERD (gastroesophageal reflux disease) K21.9 and COPD ( chronic obstructive pulmonary disease) J44.9 [facility] [id number] [place] [address] 89780- 8747 Mar, [facility] [address] 70319- 9117 Mar, [facility] [id number] [place] [address] 32551- 2495 Mar, Diabetes E11.9 ; Abscess L02.91 and Restless legs syndrome G25.81 [facility] [id number] [place] [address] 89699- 2243 Mar, [facility] [id number] [place] [address] 24982- 7820 Feb, GERD (gastroesophageal reflux disease) K21.9 ; Back pain M54.9 ; ED (erectile dysfunction) N52.9 ; Diabetes E11.9 ; HTN (hypertension) I10 and Insomnia G47.00 [facility] [id number] [place] [address] 04132- 2809 Feb, [facility] [id number] [place] [address] 00314- 1701 Feb, [facility] [id number] [place] [address] 55349- 2744 Jan, [facility] [id number] [place] [address] 35643- 5447 Jan, Diabetes 250.00 ; Nondependent cannabis abuse, continuous 305.21 ; Cough 786.2 ; Schizoaffective disorder, unspecified 295.70 ; Sciatica 724.3 ; Other, mixed, or unspecified nondependent drug abuse, unspecified 305.90 ; Chronic pain 338.29 ; GERD (gastroesophageal reflux disease) 530.81 and HTN (hypertension) 401.9 [facility] [id number] [place] [address] 40496- 0325 Jan, [facility] [address] [address] Jan, [facility] [address] [address]- [address] Jan, Chronic pain associated with significant psychosocial dysfunction 338.4 ; Diabetes mellitus without mention of complication, type I [ juvenile type], uncontrolled 250.03 ; Benign essential hypertension 401.1 ; Schizoaffective disorder, unspecified 295.70 ; Wheezing 786.07 ; Ear ache 388.70 ; Cough 786.2 ; Sciatica 724.3 and Foot pain, bilateral 729.5 [facility] [id number] [place] [address]- [address]509 Dec, [facility] [facility] [address] [address]- [address] Dec, [facility] [id number] [place] [address] [phone]- 0804 Dec, [facility] [id number] [place] [address] [phone]- 7007 Dec, [facility] [id number] [place] [address] 31502- 9129 Dec, [facility] [facility] [address] [address]- [address]26 Nov, Elevated liver enzymes 790.5 [facility] [id number] [place] [address] [phone]- 3061 Nov, [place] [facility] [address] [address]- [phone] 15 Nov, 2014 [facility] [id number] [address] Nov, [facility] [id number] [place] [address] [id number]- [phone] Nov, Benign essential hypertension 401.1 ; Diabetes mellitus without mention of complication, type I [juvenile type], uncontrolled 250.03 and Nondependent cannabis abuse, continuous 305.21 [facility] [id number] [place] [address] [phone]- 6114 Oct, Cellulitis 682.9 and Benign essential hypertension 401.1 [facility] [id number] [place] [address] 93740- 5292 Oct, [facility] [id number] [place] [address] [phone]- 0616 September, [facility] [id number] [place] [address] [phone]- 2572 September, [facility] [id number] [place] [address] 85999- 2418 Aug, [facility] [id number] [place] [address] 10205- 0955 Aug, [facility] [id number] [address] Aug, [place] [facility] [id number] [address] Aug, [facility] [id number] [address] Jul, [facility] [address] [place] [id number] [place] [id number] Jul, [facility] [id number] [address] [address] Jul, [facility] [id number] [place] [address]- [address] Jul, [facility] [place] [facility] [address] [id number] [place] [address] Jul, [facility] [place] [facility] [address] [id number] [place] [address] Jul, [facility] [place] [facility] [address] [id number] [place] [address] Jun, [facility] [place] [facility] [address] [id number] [place] [address] Jun, [facility] [place] [facility] [address] [id number] [place] [address] Jun, [facility] [place] [facility] [address] [id number] [place] [address] Jun, [facility] [place] [facility] [address] [id number] [place] [address] Jun, [facility] [place] [facility] [address] [id number] [place] [address] May, [facility] [place] [facility] [address] [id number] [place] [address] May, [facility] [place] [facility] [address] [id number] [place] [address]265 May, [facility] [place] [facility] [address] [id number] [place] [address]- 8176 May, [facility] [place] [facility] [address] [id number] [place] [address]- [address]106 May, [facility] [place] [facility] [address] [id number] [place] [address] May, [facility] [place] [facility] [address] [id number] [place] [address] May, [facility] [place] [facility] [address] [id number] [place] [address]- [address] May, [facility] [place] [facility] [address] [id number] [place] [address]- 3705 Apr, [facility] [place] [facility] [address] [id number] [place] [address]- 5186 Apr, [facility] [place] [facility] [address] [id number] [place] [address] Apr, [facility] [place] [facility] [address] [id number] [place] [address]- 6799 Apr, [facility] [place] [facility] [address] [id number] [place] [address]- 1712 Mar, [facility] [place] [facility] [address] [id number] [place] [address] Mar, [facility] [place] [facility] [address] [id number] [place] [address]- [address] Mar, [facility] [place] [facility] [address] [id number] [place] [address]- 8430 Mar, [facility] [place] [facility] [address] [id number] [place] [address]- 4[address] Feb, [facility] [place] [facility] [address] [id number] [place] [address]- 6425 Feb, [facility] [place] [facility] [address] [id number] [place] [address]- 8104 Feb, [facility] [place] [facility] [address] [id number] [place] [address]39 Feb, [facility] [place] [facility] [address] [id number] [place] [address]- 6738 Feb, [facility] [place] [facility] [address] [id number] [place] [address] Feb, [facility] [place] [facility] [address] [id number] [place] [address] Jan, [facility] [place] [facility] [address] [id number] [place] [id number] [address] Jan, [facility] [place] [facility] [address] [id number] [place] [address] 9507 Jan, [facility] [place] [facility] [address] [id number] [place] [address]- 2246 Jan, [facility] [place] [facility] [address] [id number] [place] [address]- 1182 Dec, [facility] [place] [facility] [address] [id number] [place] [address]- 1028 Dec, [facility] [place] [facility] [address] [id number] [place] [address]- 4470 Dec, [facility] [place] [facility] [address] [id number] [place] [address]- 9723 Dec, [facility] [place] [facility] [address] [id number] [place] [address] 1925 Dec, [facility] [place] [facility] [address] [id number] [place] [address]- 1657 Dec, [facility] [place] [facility] [address] [id number] [place] [address]- 6286 Oct, [facility] [place] [facility] [address] [id number] [place] [address]- 7184 Oct, [facility] [place] [facility] [address] [id number] [place] [address]- 5232 September, [facility] [place] [facility] [address] [id number] [place] [address]- 1756 September, [facility] [place] [facility] [address] [id number] [place] [address]- 3142 September, [facility] [place] [facility] [address] [id number] [place] [address]- 6842 September, [facility] [place] [facility] [address] [id number] [place] [address]- 8074 September, [facility] [place] [facility] [address] [id number] [place] [address]- 4225 September, [facility] [place] [facility] [address] [id number] [place] [address]- 3161 Aug, [facility] [place] [facility] [address] [id number] [place] [address]- 8192 Aug, [facility] [place] [facility] [address] [id number] [place] [address]- 6381 Aug, [facility] [place] [facility] [address] [id number] [place] [address]- [address] Aug, [facility] [place] [facility] [address] [id number] [place] [address]- 6967 Jul, [facility] [place] [facility] [address] [id number] [place] [address]- [address] Jul, [facility] [place] [facility] [address] [id number] [place] [address]- 0610 Jun, [facility] [place] [facility] [address] [id number] [place] [address]- 5584 Jun, [facility] [place] [facility] [address] [id number] [place] [address]- 2212 May, [facility] [place] [facility] [address] [id number] [place] [address]- 459[address] May, [facility] [place] [facility] [address] [id number] [place] [address]- 3412 Jan, [facility] [place] [facility] [address] [id number] [place] [address]- 4213 Dec, [facility] [place] [facility] [address] [id number] [place] [address]- 8972 Jun, [facility] [place] [facility] [address] [id number] [place] [address]- 3844 May, [facility] [place] [facility] [address] [id number] [place] [address]- 2473 Nov, [facility] [address] [id number] [address] September, [facility] [address] [facility] [id number], [place] [address] Aug, [facility] [address] [facility] [id number], [place] [address] 1980 Aug, [facility] [address] [facility] [id number], [place] [address]- 1423 Aug, [facility] [address] [id number] [address]- [address] Aug, [facility] [address] [facility] [id number] [address]- [address] Nov, [facility] [address] [facility] [id number], [place] [address]- 4318 Oct, [facility] [address] [facility] [id number], [place] [address]- 99[address] Jul, [facility] [address] [facility] [id number], [place] [address]- 0116 Feb, [facility] [address] [facility] [id number], [place] [address]- 8009 Feb, [facility] [address] [facility] [id number], [place] [address]- [address]168 Apr, [facility] [address] [facility] [id number], [place] [address]- 4766 Apr, [facility] [address] [facility] [id number] [address] Feb, [facility] [address] [facility] [id number] [address]- 90[address] Feb, [facility] [address] [facility] [id number] [address] Jul, IMMUNIZATIONS No Known Immunizations SOCIAL HISTORY [...]
--- OUTSIDE RECORDS SUMMARY | 2018-09-15 22:32 | XMS REPORT ---
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 Name Role Phone YVES BLEVINS Unavailable PROBLEMS Type Condition ICD9-CM Code FRE61-JI Code Onset Dates Condition Status SNOMED Code Problem HTN (hypertension) I10 Active 10744589 Problem Restless legs syndrome G25.81 Active 538924026 Problem GERD (gastroesophageal reflux disease) K21.9 Active 710497669 Problem Chronic hepatitis C without hepatic coma B18.2 Active 486133575 Problem ED (erectile dysfunction) N52.9 Active 321393873 Problem PAD (peripheral artery disease) I73.9 Active 760021231 Problem Ulcer of right foot, unspecified ulcer stage L97.519 Active 25454453 Problem 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 331795176 Problem COPD (chronic obstructive pulmonary disease) J44.9 Active 07639071 Problem DM neuro manif type II E11.49 Active 51979608 Problem Sinusitis, unspecified chronicity, unspecified location J32.9 Active 40555035 ALLERGIES No Information ENCOUNTERS Encounter Location Date Diagnosis [facility] [address], [place] [address] Dec, Back pain M54.9 [facility] [address], [place] [address] Dec, [facility] [address], [place] [address] Dec, Upper respiratory tract infection, unspecified type J06.9 [facility] [address], [place] [address] Dec, [facility] [address], [place] [address] Dec, Acute suppurative otitis media of right ear without spontaneous rupture of tympanic membrane, recurrence not specified H66.001 and Acute nasopharyngitis J00 [facility] [id number] [place] [address] 70119- 7584 Dec, Back pain M54.9 [facility] [id number] [place] [address] 06553- 9127 Dec, Foot infection L08.9 and 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 complication E11.49 [facility] [address] [address] Nov, Cellulitis of toe of right foot L03.031 ; Polyneuropathy in diseases classified elsewhere G63 and HTN (hypertension) I10 [facility] [id number] [place] [address] 41405- 9838 Nov, [place] [address] [address]- 6558 Nov, [facility] [id number] [place] [address] 15897- 7515 Nov, Back pain M54.9 [facility] [address] [address]- 8925 Nov, Shortness of breath R06.02 [facility] [id number] [place] [address] 88488- 6905 Nov, [facility] [id number] [place] [address] 40581- 4521 Oct, [facility] [id number] [place] [address] 20510- 8620 Oct, [facility] [id number] [place] [address] 65787- 1523 Oct, [facility] [id number] [place] [address] 56903- 7804 Oct, [facility] [id number] [place] [address] 83084- 0617 Oct, [facility] [address], [place] [address] 8849 Oct, Back pain M54.9 [facility] [address], [place] [address] 4545 Oct, Back pain M54.9 [facility] [address], [place] [address]- 4857 Oct, [facility] [id number] [place] [address] 29052- 0941 September, [facility] [id number] [place] [address] 83901- 9421 September, [facility] [id number] [place] [address] 58312- 1073 September, [facility] [id number] [place] [address] 27485- 1588 September, 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 complication E11.49 and Hypotension, unspecified hypotension type I95.9 [facility] [address], [place] [address]- 1048 September, [facility] [address], [place] [address]- 6575 September, [facility] [address], [place] [address] 6317 September, Back pain M54.9 [facility] [address], [place] [address]- 5091 Aug, [facility] [id number] [place] [address] 33721- 7580 Aug, Acute cystitis with hematuria N30.01 ; Ulcer of right foot, unspecified ulcer stage L97.519 ; HTN (hypertension) I10 ; COPD (chronic obstructive pulmonary disease) J44.9 and DM neuro manif type II E11.49 [facility] [id number], [place] [address] 5067 11 Aug, 2017 Back pain M54.9 [facility] [id number] [place] [address] 57214- 9217 Jul, [facility] [id number] [place] [address] 10081- 7462 Jul, Back pain M54.9 [facility] [id number] [place] [address] 63677- 0968 Jul, [facility] [id number] [place] [address] 10759- 7935 09 Jul, 2017 DM neuro manif type II E11.49 and Ulcer of right foot, unspecified ulcer stage L97.519 [facility] [id number] [place] [address] 08324- 7968 Jun, [facility] [id number] [place] [address] 74201- 7027 Jun, [facility] [id number] [place] [address] 18786- 1110 May, Type 2 diabetes mellitus with other diabetic neurological complication E11.49 ; GERD (gastroesophageal reflux disease) K21.9 and PAD ( peripheral artery disease) I73.9 [facility] [id number] [place] [address] 68050- 5777 17 May, 2017 Decubital ulcer L89.90 ; Diabetes E11.9 and GERD ( gastroesophageal reflux disease) K21.9 [facility] [id number] [place] [address] 52559- 8387 May, [facility] [id number] [place] [address] 64496- 7806 Apr, [facility] [id number] [place] [address] 84535- 5914 Mar, [facility] [id number] [place] [address] 09131- 8100 Mar, [facility] [address], [place] [address]- 2712 Feb, [facility] [id number] [place] [address] 29564- 2571 Feb, [facility] [id number] [place] [address] 42759- 3292 Jan, [facility] [id number] [place] [address] 96897- 3794 Jan, HTN (hypertension) I10 [facility] [id number] [place] [address] 49345- 6990 Jan, [facility] [id number] [place] [address] 43987- 0502 Dec, Back pain M54.9 [facility] [id number] [place] [address] 09295- 6952 Dec, Back pain M54.9 [facility] [id number] [place] [address] 40618 -8664 Dec, Encounter for immunization Z23 and Puncture wound of right foot, initial encounter S91.331A [facility] [id number] [place] [address] 38223- 2532 Dec, [facility] [id number] [place] [address] 15368- 3930 Nov, [facility] [id number] [place] [address] 85110- 3247 Nov, COPD (chronic obstructive pulmonary disease) J44.9 [facility] [id number] [place] [address] 44511- 8723 Nov, [facility] [id number] [place] [address] 70972- 8376 Oct, [facility] [id number] [place] [address] 58365- 9852 Oct, [facility] [id number] [place] [address] 68046- 0580 September, Onychomycosis B35.1 and DM neuro manif type II E11.49 [facility] [id number] [place] [address] 66492- 1474 September, [facility] [id number] [place] [address] 67581- 0645 Aug, [facility] [id number] [place] [address] 40037- 1530 Jul, Sinusitis, unspecified chronicity, unspecified location J32.9 and Cough R05 [facility] [address] 09035- 4309 Jul, Back pain M54.9 [facility] [id number] [place] [address] 11484- 4411 Jun, Back pain M54.9 [facility] [id number] [place] [address] 55979- 5138 06 Jun, 2016 COPD (chronic obstructive pulmonary disease) J44.9 [facility] [id number] [place] [address] 24302- 9319 May, [facility] [id number] [place] [address] 28796- 3421 May, [facility] [id number] [place] [address] 20516- 8692 May, Back pain M54.9 [facility] [id number] [place] [address] 80564- 1177 May, [facility] [id number] [place] [address] 25494- 8524 May, [facility] [id number] [place] [address] 53517- 3152 May, Diabetes E11.9 [facility] [id number] [place] [address] 48865- 2230 May, Diabetes E11.9 ; GERD (gastroesophageal reflux [...] Need for hepatitis C screening test Z11.59 [facility] [address] 81539- 6923 04 May, 2016 HTN (hypertension) I10 [facility] [address] 55088- 0593 29 Apr, 2016 [facility] [address] 08939- 8412 Apr, [facility] [id number] [place] [address] 77252- 5023 Apr, [facility] [id number] [place] [address] 18799- 6502 Apr, [facility] [id number] [place] [address] 02664- 7686 Apr, [facility] [id number] [place] [address] 51518- 2218 Mar, [facility] [id number] [place] [address] 13071- 7874 Mar, [facility] [id number] [place] [address] 76585- 5444 Mar, [facility] [address] 77591- 9460 Mar, [facility] [id number] [place] [address] 85272- 3912 02 Mar, 2016 Dental examination Z01.20 [facility] [address] [place] [address]- 5071 Feb, [facility] [id number] [place] [address] 85420- 7740 Feb, [facility] [id number] [place] [address] 22653- 3403 Feb, Back pain M54.9 [facility] [id number] [place] [address] 18154- 4400 Jan, [facility] [id number] [place] [address] 85038- 1629 Jan, [facility] [id number] [place] [address] 35458- 1841 Dec, Diabetes E11.9 ; GERD (gastroesophageal reflux disease) K21.9 ; ED (erectile dysfunction) N52.9 ; HTN (hypertension) I10 ; Insomnia G47.00 ; COPD (chronic obstructive pulmonary disease) J44.9 ; Neuropathy G62.9 and Bipolar depression F31.30 [facility] [id number] [place] [address] 69907- 6909 Dec, Type 2 diabetes mellitus with other diabetic neurological complication E11.49 and Onychomycosis B35.1 [facility] [address], [place] [address]- 9544 Dec, [facility] [address], [place] [address]- 7911 Dec, [facility] [id number] [place] [address] 50319- 0500 Dec, [facility] [id number] [place] [address] 26309- 6168 Dec, [facility] [id number] [place] [address] 91446- 7751 Nov, [facility] [address], [place] [address]- 1475 Nov, [facility] [address] [address]- 6601 14 Oct, 2015 [facility] [id number] [place] [address] 53712- 3261 08 Oct, 2015 [facility] [id number] [place] [address] 96849- 9691 07 Oct, 2015 Back pain M54.9 [facility] [id number] [place] [address] 41750- 3498 06 Oct, 2015 [facility] [id number] [place] [address] 42115- 3738 Oct, [facility] [id number] [place] [address] 52401- 5252 Oct, [facility] [id number] [place] [address] 78007- 2607 Oct, HTN (hypertension) I10 [facility] [id number] [place] [address] 32330- 1812 Oct, Back pain M54.9 [facility] [id number] [place] [address] 19922- 2924 Oct, Chronic pain syndrome G89.4 [facility] [id number] [place] [address] 66161- 4914 September, Back pain M54.9 [facility] [id number] [place] [address] 04094- 1521 September, HTN (hypertension) I10 [facility] [address], [place] [address]- 3352 Aug, Porokeratosis Q82.8 ; Onychomycosis B35.1 and Type 2 diabetes mellitus with other diabetic neurological complication E11.49 [facility] [address], [place] [address]- 5404 Aug, GERD (gastroesophageal reflux disease) K21.9 ; Diabetes E11.9 ; HTN (hypertension) I10 ; Insomnia G47.00 ; Restless legs syndrome G25.81 ; COPD (chronic obstructive pulmonary disease) J44.9 ; Back pain M54.9 and Bipolar 1 disorder F31.9 [facility] [id number] [place] [address] 03890- 4890 Aug, [facility] [id number] [place] [address] 80239- 9051 Aug, [facility] [address] 02435- 5463 Aug, [facility] [id number] [place] [address] 74362- 8847 Aug, [facility] [id number] [place] [address] 86503- 4793 Jul, [facility] [id number] [place] [address] 02432- 9970 Jul, [facility] [id number] [place] [address] 53065- 2273 Jul, [facility] [id number] [place] [address] 72415- 4100 Jul, [facility] [id number] [place] [address] 38018- 0158 Jul, [facility] [id number] [place] [address] 55757- 6809 Jul, [facility] [id number] [place] [address] 69838- 3262 Jun, Decubital ulcer L89.90 ; Diabetes E11.9 ; Back pain M54.9 ; HTN (hypertension) I10 and COPD (chronic obstructive pulmonary disease) J44.9 [facility] [id number] [place] [address] 07979- 7552 Jun, [facility] [id number] [place] [address] 84448- 0982 Jun, [facility] [address], [place] [address]- 7138 Jun, [facility] [id number] [place] [address] 89818- 0077 Jun, [facility] [id number] [place] [address] 70554- 8523 Jun, Diabetes E11.9 ; Insomnia G47.00 ; Decubital ulcer L89.90 ; GERD (gastroesophageal reflux disease) K21.9 ; Back pain M54.9 ; Superficial fungus infection of skin B36.9 and HTN (hypertension) I10 [address] [id number] [id number] Jun, Dental examination Z01.20 [place] [id number] [place] [address] 07137- 0077 May, [place] [id number] [place] [address] 55597- 1085 May, [place] [id number] [place] [address] 06182- 9570 May, [place] [id number] [place] [address] 41255- 0546 May, Diabetes E11.9 ; HTN (hypertension) I10 and Decubital ulcer L89.90 [place] [id number] [place] [address] 78648- 4186 May, HTN (hypertension) I10 ; Decubital ulcer L89.90 and Diabetes E11.9 [place] [id number] [place] [address] 64944- 3580 Apr, Diabetes E11.9 ; GERD (gastroesophageal reflux disease) K21.9 ; Back pain M54.9 ; HTN (hypertension) I10 ; Restless legs syndrome G25.81 and Decubital ulcer L89.90 [place] [id number] [place] [address] 26343- 3100 Apr, [place] [id number] [place] [address] 98966- 9780 Apr, Diabetes E11.9 ; HTN (hypertension) I10 ; Restless legs syndrome G25.81 ; GERD (gastroesophageal reflux disease) K21.9 and COPD ( chronic obstructive pulmonary disease) J44.9 [place] [id number] [place] [address] 32360- 4569 Mar, [place] [address] 30701- 2097 Mar, [place] [address] 80801- 3950 Mar, Diabetes E11.9 ; Abscess L02.91 and Restless legs syndrome G25.81 [place] [address] 87439- 4136 Mar, [place] [address] 40396- 2250 Feb, GERD (gastroesophageal reflux disease) K21.9 ; Back pain M54.9 ; ED (erectile dysfunction) N52.9 ; Diabetes E11.9 ; HTN (hypertension) I10 and Insomnia G47.00 [place] [id number] [place] [address] 16879- 0959 Feb, [place] [id number] [place] [address] 35626- 5306 Feb, [place] [id number] [place] [address] 98199- 8376 Jan, [place] [id number] [place] [address] 83580- 3013 Jan, Diabetes 250.00 ; Nondependent cannabis abuse, continuous 305.21 ; Cough 786.2 ; Schizoaffective disorder, unspecified 295.70 ; Sciatica 724.3 ; Other, mixed, or unspecified nondependent drug abuse, unspecified 305.90 ; Chronic pain 338.29 ; GERD (gastroesophageal reflux disease) 530.81 and HTN (hypertension) 401.9 [facility] [id number] [place] [address] 14289- 7656 Jan, [facility] [id number] [place] [address] 94371- 9997 Jan, [facility] [id number] [place] [address] 07406- 0915 Jan, Chronic pain associated with significant psychosocial dysfunction 338.4 ; Diabetes mellitus without mention of complication, type I [ juvenile type], uncontrolled 250.03 ; Benign essential hypertension 401.1 ; Schizoaffective disorder, unspecified 295.70 ; Wheezing 786.07 ; Ear ache 388.70 ; Cough 786.2 ; Sciatica 724.3 and Foot pain, bilateral 729.5 [facility] [id number] [place] [address] 30065- 7865 Dec, [facility] [id number] [place] [address] 37864- 3900 Dec, [facility] [id number] [place] [address] 27705- 2421 Dec, [facility] [id number] [place] [address] 69799- 5326 Dec, [facility] [id number] [place] [address] 00665- 4639 Dec, [facility] [id number] [place] [address] 17545- 7770 Nov, Elevated liver enzymes 790.5 [facility] [id number] [place] [address] 78985- 6076 Nov, [facility] [id number] [place] [address] 12633- 0508 Nov, [facility] [id number] [place] [address] 52074- 0786 Nov, [facility] [id number] [place] [address] 04936- 4276 Nov, Benign essential hypertension 401.1 ; Diabetes mellitus without mention of complication, type I [juvenile type], uncontrolled 250.03 and Nondependent cannabis abuse, continuous 305.21 [facility] [address], [place] [address]- 7661 Oct, Cellulitis 682.9 and Benign essential hypertension 401.1 [facility] [id number] [place] [address]- [address] Oct, [facility] [id number] [place] [id number]- 5459 September, [facility] [id number] [place] [id number]- 6227 September, [facility] [id number] [place] [address]- 8218 Aug, [facility] [id number] [place] [address] 41987- 8570 Aug, [facility] [id number] [place] [address]- 9289 Aug, [facility] [id number] [place] [address] 6[address]67- 3111 Aug, [facility] [id number], [place] [address] Jul, [facility] [id number], [place] [address] Jul, [facility] [id number], [place] [address] Jul, [facility] [id number] [place] [address] [id number] 18 Jul, 2014 [facility] [id number] [address] Jul, [facility] [id number] [place] [address] [id number]- 4609 Jul, [facility] [place] [facility] [address] [id number] [place] [address]- [address] Jun, [facility] [place] [facility] [address] [id number] [place] [address]- [address] Jun, [facility] [place] [facility] [address] [id number] [place] [address]- [address] Jun, [facility] [place] [facility] [address] [id number] [place] [address]- [address] Jun, [facility] [place] [facility] [address] [id number] [place] [address]- [address]79 Jun, [facility] [place] [facility] [address] [id number] [place] [address] May, [facility] [place] [facility] [address] [id number] [place] [address]- [address]175 May, [facility] [place] [facility] [address] [id number] [place] [address]- 7360 May, [facility] [place] [facility] [address] [id number] [place], [place] [address] May, [facility] [place] [facility] [address] [id number] [place] [address] May, [facility] [place] [facility] [address] [id number] [place] [address] May, [facility] [place] [facility] [address] [id number] [place] [address] May, [facility] [place] [facility] [address] [id number] [place] [address] May, [facility] [place] [facility] [address] [id number] [place] [address] Apr, [facility] [place] [facility] [address] [id number] [place] [address] Apr, [facility] [place] [facility] [address] [id number] [place] [address] Apr, [facility] [place] [facility] [address] [id number] [place] [address] Apr, [facility] [place] [facility] [address] [id number] [place] [address] Mar, [facility] [place] [facility] [address] [id number] [place] [address] Mar, [facility] [place] [facility] [address] [id number] [place] [address] Mar, [facility] [place] [facility] [address] [id number] [place] [address] Mar, [facility] [place] [facility] [address] [id number] [place] [address] Feb, [facility] [place] [facility] [address] [id number] [place] [address] Feb, [facility] [place] [facility] [address] [id number] [place] [address] Feb, [facility] [place] [facility] [address] [id number] [place] [address] Feb, [facility] [place] [facility] [address] [id number] [place] [address] Feb, [facility] [place] [facility] [address] [id number] [place] [address] Feb, [facility] [place] [facility] [address] [id number] [place] [address] Jan, [facility] [place] [facility] [address] [id number] [place] [address] Jan, [facility] [place] [facility] [address] [id number] [place] [address] Jan, [facility] [place] [facility] [address] [id number] [place] [id number] Jan, [facility] [place] [facility] [address] [id number] [place] [address] Dec, [facility] [place] [facility] [address] [id number] [place] [address] Dec, [facility] [place] [facility] [address] [id number] [place] [address] Dec, [facility] [place] [facility] [address] [id number] [place] [address] Dec, [facility] [place] [facility] [address] [id number] [place] [address] Dec, [facility] [place] [facility] [address] [id number] [place] [address] 44[address] Dec, [facility] [place] [facility] [address] [id number] [place] [address] Oct, [facility] [place] [facility] [address] [id number] [place] [address] Oct, [facility] [place] [facility] [address] [id number] [place] [address] September, [facility] [place] [facility] [address] [id number] [place] [address] September, [facility] [place] [facility] [address] [id number] [place] [address] September, [facility] [place] [facility] [address] [id number] [place] [address] September, [facility] [place] [facility] [address] [id number] [place] [address] September, [facility] [place] [facility] [address] [id number] [place] [address] September, [facility] [place] [facility] [address] [id number] [place] [address] Aug, [facility] [place] [facility] [address] [id number] [place] [address] 15 Aug, 2013 [facility] [place] [facility] [address] [id number] [place] [address] Aug, [facility] [place] [facility] [address] [id number] [place] [address] Aug, [facility] [place] [facility] [address] [id number] [place] [address] Jul, [facility] [place] [facility] [address] [id number] [place] [address] Jul, [facility] [place] [facility] [address] [id number] [place] [address] Jun, [facility] [place] [facility] [address] [id number] [place] [address] 14[address] Jun, [facility] [place] [facility] [address] [id number] [place] [address] May, [facility] [place] [facility] [address] [id number] [place] [address] May, [facility] [place] [facility] [address] [id number] [place] [address] Jan, [facility] [place] [facility] [address] [id number] [place] [address] 74[address] Dec, [facility] [place] [facility] [address] [id number] [place] [address] Jun, [facility] [place] [facility] [address] [id number] [place] [address] May, [facility] [place] [facility] [address] [id number] [place] [address] Nov, [facility] [place] [facility] [address] [id number] [place] [address] September, [facility] [place] [facility] [address] [id number] [place] [address] Aug, [facility] [address] [facility] [id number], [place] [address] Aug, [facility] [address] [facility] [id number] [id number] [address] Aug, [facility] [address] [facility] [id number] [address] [address] Aug, [facility] [address] [facility] [id number], [place] [address] Nov, [facility] [address] [facility] [id number], [place] [address] Oct, [facility] [address] [facility] [id number], [place] [address] Jul, [facility] [id number], [place] [address] Feb, [facility] [id number], [place] [address] Feb, [facility] [id number], [place] [address] Apr, [facility] [id number], [place] [address] Apr, [facility] [address] [id number], [place] [address] Feb, [facility] [address] [id number], [place] [address] Feb, [facility] [address] [id number], [place] [address] Jul, IMMUNIZATIONS No Known Immunizations SOCIAL HISTORY Never Assessed REASON FOR VISIT Wound Care note PLAN OF CARE VITAL SIGNS MEDICATIONS Unknown [...]
--- OUTSIDE RECORDS SUMMARY | 2018-09-15 22:32 | XMS REPORT ---
Author Author YVES BLEVINS [facility] Address [address] [place] [address] Care Team Providers Care Manager Image Name Role Phone YVES BLEVINS Unavailable PROBLEMS Type Condition ICD9-CM Code ZNZ90-NN Code Onset Dates Condition Status SNOMED Code Problem HTN (hypertension) I10 Active 03421046 Problem Restless legs syndrome G25.81 Active 225213872 Problem GERD (gastroesophageal reflux disease) K21.9 Active 795087763 Problem Chronic hepatitis C without hepatic coma B18.2 Active 718790610 Problem ED (erectile dysfunction) N52.9 Active 909385716 Problem PAD (peripheral artery disease) I73.9 Active 350058576 Problem Ulcer of right foot, unspecified ulcer stage L97.519 Active 03252843 Problem 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 848265517 Problem COPD (chronic obstructive pulmonary disease) J44.9 Active 30777907 Problem DM neuro manif type II E11.49 Active 76614832 Problem Sinusitis, unspecified chronicity, unspecified location J32.9 Active 41518336 ALLERGIES No Information ENCOUNTERS Encounter Location Date Diagnosis [facility] [id number] [address] Jan, [facility] [id number] [place] [address] 55489- 8178 Dec, Back pain M54.9 [facility] [id number] [address] 66[address] Dec, [facility] [id number] [place] [address] 57882- 5331 Dec, Upper respiratory tract infection, unspecified type J06.9 [facility] [id number] [place] [address] 47801- 3823 Dec, [facility] [id number] [place] [address] 30921 -5612 Dec, Acute suppurative otitis media of right ear without spontaneous rupture of tympanic membrane, recurrence not specified H66.001 and Acute nasopharyngitis J00 [facility] [id number] [place] [address] 31527- 2900 Dec, Back pain M54.9 [facility] [address] 62788- 1192 Dec, Foot infection L08.9 and Type 2 diabetes mellitus with other diabetic neurological complication E11.49 [facility] [address] 36394- 1873 Nov, Cellulitis of toe of right foot L03.031 ; Polyneuropathy in diseases classified elsewhere G63 and HTN (hypertension) I10 [facility] [address] [address]- [address]108 Nov, [facility] [id number] [place] [address] 46076- 6687 Nov, [facility] [address] 61592- 3493 Nov, Back pain M54.9 [facility] [id number] [place] [address] 40134- 6842 Nov, Shortness of breath R06.02 [facility] [id number] [place] [address] 02849- 8470 Nov, [facility] [id number] [place] [address] 01110- 9841 Oct, [facility] [address] 88876- 9831 Oct, [facility] [id number] [place] [address] 91957- 0356 Oct, [facility] [id number] [place] [address] 77618- 1216 Oct, [facility] [address] [address] 7655 Oct, [facility] [address] [address]- 9658 Oct, Back pain M54.9 [facility] [address] [address] 8974 Oct, Back pain M54.9 [facility] [id number] [address] 0751 Oct, [facility] [id number] [place] [address] 55143- 3561 September, [facility] [address] [address] [address] September, [facility] [id number] [place] [address] 94981- 2741 September, [facility] [address] [address] 1256 September, Type 2 diabetes mellitus with other diabetic neurological complication E11.49 and Hypotension, unspecified hypotension type I95.9 [facility] [id number] [address] September, [facility] [id number] [address] 4415 September, [facility] [id number] [address]- 4364 September, Back pain M54.9 [facility] [address] [address] 0608 Aug, [facility] [address] [address] 5025 Aug, Acute cystitis with hematuria N30.01 ; Ulcer of right foot, unspecified ulcer stage L97.519 ; HTN (hypertension) I10 ; COPD (chronic obstructive pulmonary disease) J44.9 and DM neuro manif type II E11.49 [facility] [id number] [place] [address] 57783- 9767 Aug, Back pain M54.9 [facility] [id number] [place] [address] 16521- 2781 Jul, [facility] [address] 34642- 0064 Jul, Back pain M54.9 [facility] [address] 24155- 9325 Jul, [place] [address] 45139- 7494 Jul, DM neuro manif type II E11.49 and Ulcer of right foot, unspecified ulcer stage L97.519 [facility] [address] 01846- 9034 Jun, [facility] [id number] [place] [address] 30294- 0388 Jun, [facility] [id number] [place] [address] 13172- 9596 May, Type 2 diabetes mellitus with other diabetic neurological complication E11.49 ; GERD (gastroesophageal reflux disease) K21.9 and PAD ( peripheral artery disease) I73.9 [facility] [id number] [place] [address] 85410- 4807 May, Decubital ulcer L89.90 ; Diabetes E11.9 and GERD ( gastroesophageal reflux disease) K21.9 [facility] [id number] [place] [address] 53646- 3904 May, [facility] [id number] [place] [address] 64584- 2802 Apr, [facility] [id number] [place] [address] 31786- 5475 Mar, [facility] [address] [address] 2734 Mar, [facility] [id number] [place] [address] 27414- 8792 Feb, [facility] [id number] [place] [address] 64977- 6772 Feb, [facility] [id number] [place] [address] 34696- 8804 Jan, [facility] [id number] [place] [address] 56477- 3368 Jan, HTN (hypertension) I10 [facility] [id number] [place] [address] 62426- 7380 Jan, [facility] [id number] [place] [address] 84650- 6806 Dec, Back pain M54.9 [facility] [id number] [place] [address] 56729- 3195 Dec, Back pain M54.9 [facility] [id number] [place] [address] 83715 -4265 Dec, Encounter for immunization Z23 and Puncture wound of right foot, initial encounter S91.331A [facility] [address] [address]- 4436 Dec, [facility] [id number] [place] [address] 56469- 4606 Nov, [facility] [id number] [place] [address] 24691- 3973 Nov, COPD (chronic obstructive pulmonary disease) J44.9 [facility] [id number] [address]- 3744 Nov, [facility] [id number] [place] [address] 12318- 1845 Oct, [facility] [id number] [address]- 3485 Oct, [facility] [id number] [place] [address] 60622- 8552 September, Onychomycosis B35.1 and DM neuro manif type II E11.49 [facility] [id number] [place] [address] 85238- 4888 September, [facility] [id number] [place] [address] 94555- 0856 Aug, [facility] [id number] [place] [address] 98775- 6139 Jul, Sinusitis, unspecified chronicity, unspecified location J32.[address] [facility] [id number] [place] [address] 89490- 6995 Jul, Back pain M54.9 [facility] [id number] [place] [address] 83751- 5615 Jun, Back pain M54.9 [facility] [id number] [place] [address] 03708- 0591 06 Jun, 2016 COPD (chronic obstructive pulmonary disease) J44.9 [facility] [id number] [place] [address] 64122- 3945 May, [facility] [id number] [place] [address] 23356- 9451 May, [facility] [id number] [place] [address] 78347- 8607 May, Back pain M54.9 [facility] [id number] [place] [address] 96826- 5355 May, [facility] [id number] [place] [address] 48807- 3527 May, [facility] [id number] [place] [address] 78145- 4995 12 May, [address] [facility] [id number] [place] [address] 95734- 2284 11 May, 2016 Diabetes E11.9 ; GERD [...] test Z11.59 [facility] [address] 13339- 3244 04 May, 2016 HTN (hypertension) I10 [facility] [id number] [place] [address] 67082- 0391 29 Apr, 2016 [facility] [id number] [place] [address] 42067- 8320 Apr, [facility] [id number] [place] [address] 55174- 7805 Apr, [facility] [id number] [place] [address] 87048- 4622 Apr, [facility] [id number] [place] [address] 35977- 8477 Apr, [facility] [id number] [place] [address] 06939- 5467 Mar, [facility] [id number] [place] [address] 38380- 9780 Mar, [facility] [id number] [place] [address] 91315- 5575 Mar, [facility] [id number] [place] [address] 74579- 7407 Mar, [facility] [id number] [place] [address] 23873- 5194 Mar, Dental examination Z01.20 [facility] [id number] [place] [address] 34147- 2907 Feb, [facility] [id number] [place] [address] 23019- 2365 Feb, [facility] [id number] [place] [address] 88804- 3741 Feb, Back pain M54.9 [facility] [id number] [place] [address] 90066- 8322 Jan, [facility] [address] 26070- 9742 Jan, [facility] [id number] [place] [address] 45931- 4557 Dec, Diabetes E11.9 ; GERD (gastroesophageal reflux disease) K21.9 ; ED (erectile dysfunction) N52.9 ; HTN (hypertension) I10 ; Insomnia G47.00 ; COPD (chronic obstructive pulmonary disease) J44.9 ; Neuropathy G62.9 [address] F[address].30 [facility] [id number] [place] [address] 90169- 0137 Dec, Type 2 diabetes mellitus with other diabetic neurological complication E11.[address] [facility] [address] [place] [address] 85022- 6148 Dec, [facility] [id number] [place] [address] 22639- 3277 Dec, [facility] [id number] [place] [address] 77572- 8766 Dec, [facility] [id number] [place] [address] 05429- 5268 Dec, [facility] [id number] [place] [address] 22451- 8515 Nov, [facility] [id number] [address]- 6379 Nov, [facility] [id number] [place] [address] 72557- 7869 Oct, [facility] [id number] [place] [address] 35789- 4307 Oct, [facility] [id number] [place] [address] 12281- 0271 Oct, Back pain M54.9 [facility] [id number] [place] [address] 03084- 3775 Oct, [facility] [id number] [place] [address] 33607- 9017 Oct, [facility] [id number] [place] [address] 43494- 7364 Oct, [facility] [id number] [place] [address] 61567- 3423 Oct, HTN (hypertension) I10 [facility] [id number] [place] [address] 85772- 7855 Oct, Back pain M54.9 [facility] [id number] [place] [address] 38572- 0459 Oct, Chronic pain syndrome G89.4 [facility] [id number] [place] [address] 48593- 3166 September, Back pain M54.9 [facility] [id number] [place] [address] 29917- 1186 September, HTN (hypertension) I10 [facility] [id number] [place] [address] 45225- 8188 Aug, Porokeratosis Q82.8 ; Onychomycosis B35.1 and Type 2 diabetes mellitus with other diabetic neurological complication E11.49 [facility] [id number] [place] [address] 05277- 3291 Aug, GERD (gastroesophageal reflux disease) K21.9 ; Diabetes E11.9 ; HTN (hypertension) I10 ; Insomnia G47.00 ; Restless legs syndrome G25.81 ; COPD (chronic obstructive pulmonary disease) J44.9 ; Back pain M54.9 and Bipolar [address] [facility] [id number] [address]- 8358 Aug, [facility] [id number] [place] [address] 24059- 0281 Aug, [facility] [id number] [place] [address] 13582- 0925 Aug, [facility] [id number] [place] [address] 12422- 1862 Aug, [facility] [id number] [place] [address] 54308- 6071 Jul, [facility] [id number] [place] [address] 47136- 5832 Jul, [facility] [id number] [place] [address] 65221- 9274 Jul, [facility] [id number] [place] [address] 40413- 0219 Jul, [facility] [id number] [place] [address] 77542- 9742 Jul, [facility] [id number] [place] [address] 21009- 5940 Jul, [facility] [id number] [place] [address] 12554- 9774 Jun, Decubital ulcer L89.90 ; Diabetes E11.9 ; Back pain M54.9 ; HTN (hypertension) I10 and COPD (chronic obstructive pulmonary disease) J44.9 [facility] [id number] [address]- 5543 Jun, [facility] [address] [address]- 5138 Jun, [facility] [address] [place] [address] 08282- 6743 Jun, [facility] [id number] [place] [address] 91780- 6059 Jun, [facility] [id number] [place] [address] 27840- 0788 Jun, Diabetes E11.9 ; Insomnia G47.00 ; Decubital ulcer L89.90 ; GERD (gastroesophageal reflux disease) K21.9 ; Back pain M54.9 ; Superficial fungus infection of skin B36.9 and HTN (hypertension) I10 [place] [id number] [address] Jun, Dental examination Z01.20 [facility] [address] [place] [address] 56212- 1187 May, [facility] [address] [place] [address] 60308- 1480 May, [facility] [address] [place] [address] 02076- 8436 May, [facility] [address] [address]- 9491 May, Diabetes E11.9 ; HTN (hypertension) I10 and Decubital ulcer L89.90 [facility] [address] [address]- 3714 May, HTN (hypertension) I10 ; Decubital ulcer L89.90 and Diabetes E11.9 [facility] [address] [place] [address] 93618- 7997 Apr, Diabetes E11.9 ; GERD (gastroesophageal reflux disease) K21.9 ; Back pain M54.9 ; HTN (hypertension) I10 ; Restless legs syndrome G25.81 and Decubital ulcer L89.90 [facility] [id number] [place] [address] 06144- 1315 Apr, [place] [address] 70431- 8471 Apr, Diabetes E11.9 ; HTN (hypertension) I10 ; Restless legs syndrome G25.81 ; GERD (gastroesophageal reflux disease) K21.9 and COPD ( chronic obstructive pulmonary disease) J44.9 [place] [address] 53378- 6139 Mar, [facility] [address] 84926- 6780 Mar, [place] [address] 94240- 3118 Mar, Diabetes E11.9 ; Abscess L02.91 and Restless legs syndrome G25.81 [place] [address] 87736- 5898 Mar, [facility] [id number] [place] [address] 09249- 3272 Feb, GERD (gastroesophageal reflux disease) K21.9 ; Back pain M54.9 ; ED (erectile dysfunction) N52.9 ; Diabetes E11.9 ; HTN (hypertension) I10 and Insomnia G47.00 [address] [id number] [place] [address] 28196- 3977 Feb, [facility] [id number] [place] [address] 26356- 2169 Feb, [facility] [id number] [place] [address] 61211- 4487 Jan, [facility] [id number] [place] [address] 46533- 0674 Jan, Diabetes 250.00 ; Nondependent cannabis abuse, continuous 305.21 ; Cough 786.2 ; Schizoaffective disorder, unspecified 295.70 ; Sciatica 724.3 ; Other, mixed, or unspecified nondependent drug abuse, unspecified 305.90 ; Chronic pain 338.29 ; GERD (gastroesophageal reflux disease) 530.81 and HTN (hypertension) 401.9 [facility] [id number] [place] [address] 35898- 8236 Jan, [facility] [address] 78410- 0334 Jan, [facility] [address] 93920- 1352 Jan, Chronic pain associated with significant psychosocial dysfunction 338.4 ; Diabetes mellitus without mention of complication, type I [ juvenile type], uncontrolled 250.03 ; Benign essential hypertension 401.1 ; Schizoaffective disorder, unspecified 295.70 ; Wheezing 786.07 ; Ear ache 388.70 ; Cough 786.2 ; Sciatica 724.3 and Foot pain, bilateral 729.5 [facility] [address] 64077- 2151 Dec, [facility] [id number] [place] [address] 35525- 9616 Dec, [facility] [address] 44267- 6731 Dec, [facility] [id number] [place] [address] 22463- 2415 Dec, [facility] [id number] [place] [address] 14411- 2216 Dec, [facility] [id number] [place] [address] 87409- 3843 Nov, Elevated liver enzymes 790.5 [facility] [id number] [place] [address] 32233- 9062 Nov, [facility] [id number] [place] [address] 23687- [address]25 Nov, [facility] [address] 50297- 5924 Nov, [facility] [address] [facility] [id number] [address]- 9449 Nov, Benign essential hypertension 401.1 ; Diabetes mellitus without mention of complication, type I [juvenile type], uncontrolled 250.03 and Nondependent cannabis abuse, continuous 305.21 [facility] [address] [facility] [id number] [address]- 7244 Oct, Cellulitis 682.9 and Benign essential hypertension 401.1 [facility] [address] [facility] [id number] [place] [address] 86389- 5074 Oct, [facility] [id number] [place] [address] 399757- [address] September, [facility] [id number] [place] [address] 48030- [address] September, [facility] [id number] [place] [address] 02332- 7017 Aug, [facility] [address] [address]- 9303 Aug, [facility] [id number] [place] [address] 44312- 2795 Aug, [facility] [address] [address]- 1785 Aug, [facility] [address] [address]- 5[address] Jul, [facility] [id number]- [address] Jul, [facility] [id number] [address] [place], [facility] [id number] [address] [place], [facility] [id number] [address] Jul, [facility] [place] [facility] [address] [id number] [place] [address] Jul, [facility] [place] [facility] [address] [id number] [place] [address] Jun, [facility] [place] [facility] [address] [id number] [place] [address] Jun, [facility] [place] [facility] [address] [id number] [place] [address] Jun, [facility] [place] [facility] [address] [id number] [place] [address] Jun, [facility] [place] [facility] [address] [id number] [place] [address] Jun, [facility] [place] [facility] [address] [id number] [place] [address] May, [facility] [place] [facility] [address] [id number] [place] [address] May, [facility] [place] [facility] [address] [id number] [place] [address] May, [facility] [place] [facility] [address] [id number] [place] [address] May, [facility] [place] [facility] [address] [id number] [address] May, [facility] [place] [facility] [address] [id number] [place] [address] May, [facility] [place] [facility] [address] [id number] [place] [address] May, [facility] [place] [facility] [address] [id number] [place] [address] May, [facility] [place] [facility] [address] [id number] [place] [address] Apr, [facility] [place] [facility] [address] [id number] [place] [address] Apr, [facility] [place] [facility] [address] [id number] [place] [address] Apr, [facility] [place] [facility] [address] [id number] [place] [address] Apr, [facility] [place] [facility] [address] [id number] [place] [address] Mar, [facility] [place] [facility] [address] [id number] [place] [address] Mar, [facility] [place] [facility] [address] [id number] [place] [address] Mar, [facility] [place] [facility] [address] [id number] [place] [address] Mar, [facility] [place] [facility] [address] [id number] [place] [address] Feb, [facility] [place] [facility] [address] [id number] [place] [address] Feb, [facility] [place] [facility] [address] [id number] [place] [address] Feb, [facility] [place] [facility] [address] [id number] [place] [address] Feb, [facility] [place] [facility] [address] [id number] [place] [address] Feb, [facility] [place] [facility] [address] [id number] [place] [address] Feb, [facility] [place] [facility] [address] [id number] [place] [address] Jan, [facility] [place] [facility] [address] [id number] [place] [address] Jan, [facility] [place] [facility] [address] [id number] [place] [address] Jan, [facility] [place] [facility] [address] [id number] [place] [address] Jan, [facility] [place] [facility] [address] [id number] [place] [address] Dec, [facility] [place] [facility] [address] [id number] [place] [address] Dec, [facility] [place] [facility] [address] [id number] [place] [address] Dec, [facility] [place] [facility] [address] [id number] [place] [address] Dec, [facility] [place] [facility] [address] [id number] [place] [address] Dec, [facility] [place] [facility] [address] [id number] [place] [address] Dec, [facility] [place] [facility] [address] [id number] [place] [address] Oct, [facility] [place] [facility] [address] [id number] [place] [address] Oct, [facility] [place] [facility] [address] [id number] [place] [address] September, [facility] [place] [facility] [address] [id number] [place] [address] 2012 September, [facility] [place] [facility] [address] [id number] [place] [address] September, [facility] [place] [facility] [address] [id number] [place] [address] September, [facility] [place] [facility] [address] [id number] [place] [address] September, [facility] [place] [facility] [address] [id number] [place] [address] September, [facility] [place] [facility] [address] [id number] [place] [address] 15 Aug, 2013 [facility] [place] [facility] [address] [id number] [place] [address] 15 Aug, 2013 [facility] [place] [facility] [address] [id number] [place] [address] Aug, [facility] [place] [facility] [address] [id number] [place] [address] Aug, [facility] [place] [facility] [address] [id number] [place] [address] Jul, [facility] [place] [facility] [address] [id number] [place] [address] Jul, [facility] [place] [facility] [address] [id number] [place] [address] Jun, [facility] [place] [facility] [address] [id number] [place] [address] Jun, [facility] [place] [facility] [address] [id number] [place] [address] May, [facility] [place] [facility] [address] [id number] [place] [address] May, [facility] [place] [facility] [address] [id number] [place] [address] Jan, [facility] [place] [facility] [address] [id number] [place] [address] Dec, [facility] [place] [facility] [address] [id number] [place] [address] Jun, [facility] [place] [facility] [address] [id number] [place] [address] May, [facility] [place] [facility] [address] [id number] [place] [address] 39[address] Nov, [facility] [place] [facility] [address] [id number] [place] [address] September, [facility] [address] [id number] [address] Aug, [facility] [address] [id number] [place] [address] Aug, [facility] [address] [id number] [address] Aug, [facility] [id number] [address] Aug, [facility] [address] [id number] [address] 4967 Nov, [facility] [address] [id number] [address] Oct, [facility] [id number] [address]85 Jul, [facility] [id number] [address] Feb, [facility] [id number] [address] Feb, [facility] [id number] [address] Apr, [facility] [id number] [address] Apr, [facility] [id number] [address] Feb, [facility] [address] [id number] [address] Feb, [facility] [id number] [address] [address] Jul, IMMUNIZATIONS No Known Immunizations SOCIAL HISTORY Never Assessed REASON FOR VISIT [place] PLAN OF CARE VITAL SIGNS MEDICATIONS Unknown [...]
--- OUTSIDE RECORDS SUMMARY | 2018-09-15 22:33 | XMS REPORT ---
Author Author YVES BLEVINS [facility] Address [address] [place] [address] Care Team Providers Care Oracle Fusion Consultant Name Role Phone YVES BLEVINS Unavailable PROBLEMS Type Condition ICD9-CM Code XCT21-OX Code Onset Dates Condition Status SNOMED Code Problem HTN (hypertension) I10 Active 41062025 Problem Restless legs syndrome G25.81 Active 014267957 Problem GERD (gastroesophageal reflux disease) K21.9 Active 563057892 Problem Chronic hepatitis C without hepatic coma B18.2 Active 311500811 Problem ED (erectile dysfunction) N52.9 Active 487363610 Problem PAD (peripheral artery disease) I73.9 Active 405680681 Problem Ulcer of right foot, unspecified ulcer stage L97.519 Active 53770836 Problem 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 632587921 Problem COPD (chronic obstructive pulmonary disease) J44.9 Active 23705788 Problem DM neuro manif type II E11.49 Active 79920398 Problem Sinusitis, unspecified chronicity, unspecified location J32.9 Active 20969681 ALLERGIES No Information ENCOUNTERS Encounter Location Date Diagnosis [facility] [address] [address] Dec, Back pain M54.9 [facility] [address] [address] Dec, [facility] [address] [address] Dec, Upper respiratory tract infection, unspecified type J06.9 [facility] [address] [address] Dec, [facility] [address] [address] Dec, Acute suppurative otitis media of right ear without spontaneous rupture of tympanic membrane, recurrence not specified H66.001 and Acute nasopharyngitis J00 [facility] [id number] [place] [address] 34503- 8863 Dec, Back pain M54.9 [facility] [id number] [place] [address] 94963- 7532 Dec, Foot infection L08.9 and Type 2 diabetes mellitus with other diabetic neurological complication E11.49 [facility] [address] [address] 5818 Nov, Cellulitis of toe of right foot L03.031 ; Polyneuropathy in diseases classified elsewhere G63 and HTN (hypertension) I10 [facility] [id number] [place] [address] 58807- 4880 Nov, [place] [address] [address]- 1041 Nov, [facility] [id number] [place] [address] 17716- 5877 Nov, Back pain M54.9 [facility] [address] 34396- 2943 Nov, Shortness of breath R06.02 [facility] [id number] [place] [address] 96047- 8955 Nov, [facility] [id number] [place] [address] 91405- 4161 Oct, [facility] [id number] [place] [address] 46508- 3115 Oct, [facility] [id number] [place] [address] 86576- 6593 Oct, [facility] [id number] [place] [address] 04997- 2878 Oct, [facility] [id number] [place] [address] 22119- 9979 Oct, [facility] [address] [address] 9322 Oct, Back pain M54.9 [facility] [address] [address] 5193 Oct, Back pain M54.9 [facility] [address] [address] Oct, [facility] [id number] [place] [address] 68184- 6761 September, [facility] [id number] [place] [address] 43785- 5304 September, [facility] [id number] [place] [address] 21670- 3787 September, [facility] [id number] [place] [address] 04980- 4671 September, Type 2 diabetes mellitus with other diabetic neurological complication E11.49 and Hypotension, unspecified hypotension type I95.9 [facility] [address] [address] 1291 September, [facility] [address] [address]- 6127 September, [facility] [address] [address]- 4685 September, Back pain M54.9 [facility] [address] [address]- 5205 Aug, [facility] [id number] [place] [address] 35919- 6841 Aug, Acute cystitis with hematuria N30.01 ; Ulcer of right foot, unspecified ulcer stage L97.519 ; HTN (hypertension) I10 ; COPD (chronic obstructive pulmonary disease) J44.9 and DM neuro manif type II E11.49 [facility] [id number] [address]- 8746 11 Aug, 2017 Back pain M54.9 [facility] [id number] [place] [address] 70782- 1365 Jul, [facility] [id number] [place] [address] 47817- 3553 Jul, Back pain M54.9 [facility] [id number] [place] [address] 02568- 5863 Jul, [facility] [id number] [place] [address] 86710- 7183 09 Jul, 2017 DM neuro manif type II E11.49 and Ulcer of right foot, unspecified ulcer stage L97.519 [facility] [id number] [place] [address] 49616- 6251 Jun, [facility] [id number] [place] [address] 49066- 1170 Jun, [facility] [id number] [place] [address] 80775- 5281 May, Type 2 diabetes mellitus with other diabetic neurological complication E11.49 ; GERD (gastroesophageal reflux disease) K21.9 and PAD ( peripheral artery disease) I73.9 [facility] [address] [place] [address] 11317- 6627 17 May, 2017 Decubital ulcer L89.90 ; Diabetes E11.9 and GERD ( gastroesophageal reflux disease) K21.9 [facility] [id number] [place] [address] 74512- 1949 May, [facility] [id number] [place] [address] 54920- 6629 Apr, [facility] [id number] [place] [address] 85553- 4287 Mar, [facility] [id number] [place] [address] 11050- 8627 Mar, [facility] [address] [address]- 9140 Feb, [facility] [id number] [place] [address] 49470- 5631 Feb, [facility] [id number] [place] [address] 17683- 4065 Jan, [facility] [id number] [place] [address] 61605- 3087 Jan, HTN (hypertension) I10 [facility] [id number] [place] [address] 76396- 7704 Jan, [facility] [id number] [place] [address] 55850- 2553 Dec, Back pain M54.9 [facility] [id number] [place] [address] 15053- 3301 Dec, Back pain M54.9 [facility] [id number] [place] [address] 77715 -5820 Dec, Encounter for immunization Z23 and Puncture wound of right foot, initial encounter S91.331A [facility] [id number] [place] [address] 27983- 8374 Dec, [facility] [id number] [place] [address] 61335- 1980 Nov, [facility] [id number] [place] [address] 57448- 2732 Nov, COPD (chronic obstructive pulmonary disease) J44.9 [facility] [id number] [place] [address] 87536- 9355 Nov, [facility] [id number] [place] [address] 83732- 6099 Oct, [facility] [id number] [place] [address] 43830- 6756 Oct, [facility] [id number] [place] [address] 88263- 0299 September, Onychomycosis B35.1 and DM neuro manif type II E11.49 [facility] [id number] [place] [address] 39510- 6177 September, [facility] [id number] [place] [address] 99125- 7265 Aug, [facility] [id number] [place] [address] 94756- 4083 Jul, Sinusitis, unspecified chronicity, unspecified location J32.9 and Cough R05 [facility] [address] 03054- 5664 Jul, Back pain M54.9 [facility] [id number] [place] [address] 12942- 4126 Jun, Back pain M54.9 [facility] [id number] [place] [address] 17600- 9102 06 Jun, 2016 COPD (chronic obstructive pulmonary disease) J44.9 [facility] [id number] [place] [address] 24633- 9368 May, [facility] [id number] [place] [address] 82258- 7682 May, [facility] [id number] [place] [address] 88984- 8115 May, Back pain M54.9 [facility] [id number] [place] [address] 28493- 8668 May, [facility] [id number] [place] [address] 07925- 6243 May, [facility] [id number] [place] [address] 95713- 1154 May, Diabetes E11.9 [facility] [id number] [place] [address] 16871- 8366 May, Diabetes E11.9 ; GERD (gastroesophageal reflux [...] test Z11.59 [facility] [address] 86354- 5431 04 May, 2016 HTN (hypertension) I10 [facility] [address] 91707- 2282 29 Apr, 2016 [facility] [address] 12976- 4227 Apr, [facility] [id number] [place] [address] 24929- 0346 Apr, [facility] [id number] [place] [address] 58088- 9683 Apr, [facility] [id number] [place] [address] 42443- 3328 Apr, [facility] [id number] [place] [address] 50487- 9133 Mar, [facility] [id number] [place] [address] 38526- 0530 Mar, [facility] [id number] [place] [address] 96871- 8050 Mar, [facility] [address] 71244- 2038 Mar, [facility] [id number] [place] [address] 65335- 5748 02 Mar, 2016 Dental examination Z01.20 [facility] [address] [place] [address]- 0137 Feb, [facility] [id number] [place] [address] 86325- 5749 Feb, [facility] [id number] [place] [address] 59298- 1975 Feb, Back pain M54.9 [facility] [id number] [place] [address] 07820- 6646 Jan, [facility] [id number] [place] [address] 88298- 6783 Jan, [facility] [id number] [place] [address] 73513- 4905 Dec, Diabetes E11.9 ; GERD (gastroesophageal reflux disease) K21.9 ; ED (erectile dysfunction) N52.9 ; HTN (hypertension) I10 ; Insomnia G47.00 ; COPD (chronic obstructive pulmonary disease) J44.9 ; Neuropathy G62.9 and Bipolar depression F31.30 [facility] [id number] [place] [address] 59356- 6375 Dec, Type 2 diabetes mellitus with other diabetic neurological complication E11.49 and Onychomycosis B35.1 [facility] [address] [address]- 4218 Dec, [facility] [address] [address]- 8695 Dec, [facility] [id number] [place] [address] 83063- 0227 Dec, [facility] [id number] [place] [address] 67992- 7298 Dec, [facility] [id number] [place] [address] 62975- 7064 Nov, [facility] [address] [address]- 1808 Nov, [facility] [id number] [address]- 8344 14 Oct, 2015 [facility] [id number] [place] [address] 61792- 2454 08 Oct, 2015 [facility] [id number] [place] [address] 47369- 6403 07 Oct, 2015 Back pain M54.9 [facility] [id number] [place] [address] 80554- 2209 06 Oct, 2015 [facility] [id number] [place] [address] 04013- 9485 Oct, [facility] [id number] [place] [address] 54834- 0787 Oct, [facility] [id number] [place] [address] 92031- 1282 Oct, HTN (hypertension) I10 [facility] [id number] [place] [address] 74460- 7476 Oct, Back pain M54.9 [facility] [id number] [place] [address] 18438- 7733 Oct, Chronic pain syndrome G89.4 [facility] [id number] [place] [address] 85803- 0023 September, Back pain M54.9 [facility] [address] [place] [address] 93260- 4761 September, HTN (hypertension) I10 [facility] [address] [address]- 0792 Aug, Porokeratosis Q82.8 ; Onychomycosis B35.1 and Type 2 diabetes mellitus with other diabetic neurological complication E11.49 [facility] [address] [address]- 8851 Aug, GERD (gastroesophageal reflux disease) K21.9 ; Diabetes E11.9 ; HTN (hypertension) I10 ; Insomnia G47.00 ; Restless legs syndrome G25.81 ; COPD (chronic obstructive pulmonary disease) J44.9 ; Back pain M54.9 and Bipolar 1 disorder F31.9 [facility] [id number] [place] [address] 05267- 7878 Aug, [facility] [id number] [place] [address] 18595- 2610 Aug, [facility] [address] 45214- 6479 Aug, [facility] [id number] [place] [address] 03525- 8207 Aug, [facility] [id number] [place] [address] 35114- 8761 Jul, [facility] [id number] [place] [address] 57615- 5714 Jul, [facility] [id number] [place] [address] 53662- 5819 Jul, [facility] [id number] [place] [address] 67343- 7535 Jul, [facility] [id number] [place] [address] 27682- 2136 Jul, [facility] [id number] [place] [address] 49829- 2820 Jul, [facility] [id number] [place] [address] 17581- 7748 Jun, Decubital ulcer L89.90 ; Diabetes E11.9 ; Back pain M54.9 ; HTN (hypertension) I10 and COPD (chronic obstructive pulmonary disease) J44.9 [facility] [id number] [place] [address] 33628- 1220 Jun, [facility] [id number] [place] [address] 79912- 6252 Jun, [facility] [address] [address]- 7668 Jun, [facility] [id number] [place] [address] 48570- 6464 Jun, [facility] [id number] [place] [address] 80293- 8019 Jun, Diabetes E11.9 ; Insomnia G47.00 ; Decubital ulcer L89.90 ; GERD (gastroesophageal reflux disease) K21.9 ; Back pain M54.9 ; Superficial fungus infection of skin B36.9 and HTN (hypertension) I10 [address] [id number] [address] Jun, Dental examination Z01.20 [place] [id number] [place] [address] 93062- 3236 May, [place] [id number] [place] [address] 53265- 1809 May, [place] [id number] [place] [address] 87892- 2624 May, [place] [id number] [place] [address] 25043- 6523 May, Diabetes E11.9 ; HTN (hypertension) I10 and Decubital ulcer L89.90 [place] [id number] [place] [address] 39380- 3049 May, HTN (hypertension) I10 ; Decubital ulcer L89.90 and Diabetes E11.9 [place] [id number] [place] [address] 37412- 5172 Apr, Diabetes E11.9 ; GERD (gastroesophageal reflux disease) K21.9 ; Back pain M54.9 ; HTN (hypertension) I10 ; Restless legs syndrome G25.81 and Decubital ulcer L89.90 [place] [id number] [place] [address] 61025- 4986 Apr, [place] [facility] [id number] [place] [address] 37072- 4826 Apr, Diabetes E11.9 ; HTN (hypertension) I10 ; Restless legs syndrome G25.81 ; GERD (gastroesophageal reflux disease) K21.9 and COPD ( chronic obstructive pulmonary disease) J44.9 [facility] [facility] [id number] [place] [address] 47908- 1210 Mar, [place] [address] 45211- 1834 Mar, [place] [address] 42348- 3647 Mar, Diabetes E11.9 ; Abscess L02.91 and Restless legs syndrome G25.81 [place] [address] 27493- 6742 Mar, [place] [address] 54346- 4053 Feb, GERD (gastroesophageal reflux disease) K21.9 ; Back pain M54.9 ; ED (erectile dysfunction) N52.9 ; Diabetes E11.9 ; HTN (hypertension) I10 and Insomnia G47.00 [place] [facility] [id number] [place] [address] 79956- 8798 Feb, [facility] [facility] [id number] [place] [address] 90801- 4915 Feb, [facility] [facility] [id number] [place] [address] 73076- 5757 Jan, [facility] [facility] [id number] [place] [address] 63517- 1268 Jan, Diabetes 250.00 ; Nondependent cannabis abuse, continuous 305.21 ; Cough 786.2 ; Schizoaffective disorder, unspecified 295.70 ; Sciatica 724.3 ; Other, mixed, or unspecified nondependent drug abuse, unspecified 305.90 ; Chronic pain 338.29 ; GERD (gastroesophageal reflux disease) 530.81 and HTN (hypertension) 401.9 [facility] [id number] [place] [address] 99722- 2280 Jan, [facility] [id number] [place] [address] 45862- 5361 Jan, [facility] [id number] [place] [address] 53520- 7039 Jan, Chronic pain associated with significant psychosocial dysfunction 338.4 ; Diabetes mellitus without mention of complication, type I [ juvenile type], uncontrolled 250.03 ; Benign essential hypertension 401.1 ; Schizoaffective disorder, unspecified 295.70 ; Wheezing 786.07 ; Ear ache 388.70 ; Cough 786.2 ; Sciatica 724.3 and Foot pain, bilateral 729.5 [facility] [id number] [place] [address] 41725- 4863 Dec, [facility] [id number] [place] [address] 61851- 6471 Dec, [facility] [id number] [place] [address] 97206- 2080 Dec, [facility] [id number] [place] [address] 29859- 0166 Dec, [facility] [id number] [place] [address] 33870- 5142 Dec, [facility] [id number] [place] [address] 55546- 2258 Nov, Elevated liver enzymes 790.5 [facility] [id number] [place] [address] 60019- 6008 Nov, [facility] [id number] [place] [address] 25378- 7002 Nov, [facility] [id number] [place] [address] 13436- 7071 Nov, [facility] [id number] [place] [address] 51553- 5323 Nov, Benign essential hypertension 401.1 ; Diabetes mellitus without mention of complication, type I [juvenile type], uncontrolled 250.03 and Nondependent cannabis abuse, continuous 305.21 [facility] [id number] [address] Oct, Cellulitis 682.9 and Benign essential hypertension 401.1 [facility] [id number] [place] [address] 52196- 1036 Oct, [facility] [id number] [place] [address] 53024- 6517 September, [facility] [id number] [place] [address] 38214- 7997 September, [facility] [id number] [place] [address] 69991- 7579 Aug, [facility] [id number] [place] [address] 21115- 0548 Aug, [facility] [id number] [place] [address] 97781- 6237 Aug, [facility] [id number] [place] [address] 58079- 1177 Aug, [facility] [id number] [address] 1057 Jul, [facility] [id number] [address] 9060 Jul, [facility] [id number] [address]- 5699 Jul, [facility] [id number] [place] [address] [id number] 18 Jul, 2014 [facility] [id number] [address] 8954 Jul, [facility] [id number] [place] [address] 46947- 0221 Jul, [facility] [place] [facility] [address] [id number] [place] [address] 6807 Jun, [facility] [place] [facility] [address] [id number] [place] [address]- 0906 Jun, [facility] [place] [facility] [address] [id number] [place] [address]- 7736 Jun, [facility] [place] [facility] [address] [id number] [place] [address] Jun, [facility] [place] [facility] [address] [id number] [place] [address] Jun, [facility] [place] [facility] [address] [id number] [place] [address] May, [facility] [place] [facility] [address] [id number] [place] [address] May, [facility] [place] [facility] [address] [id number] [place] [address] May, [facility] [place] [facility] [address] [id number] [place] [address] May, [facility] [place] [facility] [address] [id number] [place] [address] May, [facility] [place] [facility] [address] [id number] [place] [address] May, [facility] [place] [facility] [address] [id number] [place] [address] May, [facility] [place] [facility] [address] [id number] [place] [address] May, [facility] [place] [facility] [address] [id number] [place] [address] Apr, [facility] [place] [facility] [address] [id number] [place] [address] Apr, [facility] [place] [facility] [address] [id number] [place] [address] Apr, [facility] [place] [facility] [address] [id number] [place] [address] Apr, [facility] [place] [facility] [address] [id number] [place] [address] Mar, [facility] [place] [facility] [address] [id number] [place] [address] Mar, [facility] [place] [facility] [address] [id number] [place] [address] 10[address] Mar, [facility] [place] [facility] [address] [id number] [place] [address] Mar, [facility] [place] [facility] [address] [id number] [place] [address] Feb, [facility] [place] [facility] [address] [id number] [place] [address] Feb, [facility] [place] [facility] [address] [id number] [place] [address] 1986 Feb, [facility] [place] [facility] [address] [id number] [place] [address] Feb, [facility] [place] [facility] [address] [id number] [place] [address] Feb, [facility] [place] [facility] [address] [id number] [place] [address] 119[address] Feb, [facility] [place] [facility] [address] [id number] [place] [address] 39[address] Jan, [facility] [place] [facility] [address] [id number] [place] [address] Jan, [facility] [place] [facility] [address] [id number] [place] [address] Jan, [facility] [place] [facility] [address] [id number] [place] [id number] [address] Jan, [facility] [place] [facility] [address] [id number] [place] [address] Dec, [facility] [place] [facility] [address] [id number] [place] [address] Dec, [facility] [place] [facility] [address] [id number] [place] [address] Dec, [facility] [place] [facility] [address] [id number] [place] [address] Dec, [facility] [place] [facility] [address] [id number] [place] [address] Dec, [facility] [place] [facility] [address] [id number] [place] [address] Dec, [facility] [place] [facility] [address] [id number] [place] [address]- [address] Oct, [facility] [place] [facility] [address] [id number] [place] [address] Oct, [facility] [place] [facility] [address] [id number] [place] [address] 89[address] September, [facility] [place] [facility] [address] [id number] [place] [address] September, [facility] [place] [facility] [address] [id number] [place] [address]- 7036 September, [facility] [place] [facility] [address] [id number] [place] [address]- 6[address] September, [facility] [place] [facility] [address] [id number] [place] [address]- [address] September, [facility] [place] [facility] [address] [id number] [place] [address]- [address] September, [facility] [place] [facility] [address] [id number] [place] [address]- 16[address] Aug, [facility] [place] [facility] [address] [id number] [place] [address]- [address] 15 Aug, 2013 [facility] [place] [facility] [address] [id number] [place] [address] Aug, [facility] [place] [facility] [address] [id number] [place] [address]- 9547 Aug, [facility] [place] [facility] [address] [id number] [place] [address]- 6681 Jul, [facility] [place] [facility] [address] [id number] [place] [address] 37[address] Jul, [facility] [place] [facility] [address] [id number] [place] [address] 88[address] Jun, [facility] [place] [facility] [address] [id number] [place] [address]- [address] Jun, [facility] [place] [facility] [address] [id number] [place] [address]- 5269 May, [facility] [place] [facility] [address] [id number] [place] [address]- 8136 May, [facility] [place] [facility] [address] [id number] [place] [address]- 1638 Jan, [facility] [place] [facility] [address] [id number] [place] [address]- 3927 Dec, [facility] [place] [facility] [address] [id number] [place] [address] 8026 Jun, [facility] [place] [facility] [address] [id number] [place] [address]- 3849 May, [facility] [place] [facility] [address] [id number] [place] [address] 69[address] Nov, [facility] [place] [facility] [address] [id number] [place] [address] September, [facility] [place] [facility] [address] [id number] [place] [address] 30[address] Aug, [facility] [address] [facility] [id number], [place] [address] Aug, [facility] [address] [facility] [id number], [place] [address] Aug, [facility] [address] [facility] [id number][place] [address] [address] Aug, [facility] [address] [facility] [id number], [place] [address] Nov, [facility] [address] [facility] [id number], [place] [address] Oct, [facility] [address] [facility] [id number], [place] [address] Jul, [facility] [id number] [address] Feb, [facility] [id number], [place] [address] Feb, [facility] [id number], [place] [address] Apr, [facility] [id number], [place] [address] Apr, [facility] [address] [id number], [place] [address] Feb, [facility] [address] [id number], [place] [address] Feb, [facility] [address] [id number], [place] [address] Jul, IMMUNIZATIONS No Known Immunizations SOCIAL HISTORY Never Assessed REASON FOR VISIT Home Health PLAN OF CARE VITAL SIGNS MEDICATIONS Unknown [...]
--- OUTSIDE RECORDS SUMMARY | 2018-09-15 22:33 | XMS REPORT ---
Author Author YVES BLEVINS [facility] Address [address] [place] [address] Care Team Providers Care Ict Educator Name Role Phone YVES BLEVINS Unavailable PROBLEMS Type Condition ICD9-CM Code HAX74-XP Code Onset Dates Condition Status SNOMED Code Problem HTN (hypertension) I10 Active 43242253 Problem Restless legs syndrome G25.81 Active 108281947 Problem GERD (gastroesophageal reflux disease) K21.9 Active 908554243 Problem Chronic hepatitis C without hepatic coma B18.2 Active 402714123 Problem ED (erectile dysfunction) N52.9 Active 297666050 Problem PAD (peripheral artery disease) I73.9 Active 462878276 Problem Ulcer of right foot, unspecified ulcer stage L97.519 Active 14232596 Problem 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 302659088 Problem COPD (chronic obstructive pulmonary disease) J44.9 Active 77633333 Problem DM neuro manif type II E11.49 Active 33822490 Problem Sinusitis, unspecified chronicity, unspecified location J32.9 Active 74657348 ALLERGIES No Information ENCOUNTERS Encounter Location Date Diagnosis [facility] [address] [address] Dec, Back pain M54.9 [facility] [address] [address] Dec, [facility] [address] [address] Dec, Upper respiratory tract infection, unspecified type J06.9 [facility] [address] [address] Dec, [facility] [address] [address] Dec, Acute suppurative otitis media of right ear without spontaneous rupture of tympanic membrane, recurrence not specified H66.001 and Acute nasopharyngitis J00 [facility] [id number] [place] [address] 91030- 0945 Dec, Back pain M54.9 [facility] [id number] [place] [address] 09892- 5493 Dec, Foot infection L08.9 and Type 2 diabetes mellitus with other diabetic neurological complication E11.49 [facility] [address] [address] Nov, Cellulitis of toe of right foot L03.031 ; Polyneuropathy in diseases classified elsewhere G63 and HTN (hypertension) I10 [facility] [id number] [place] [address] 40898- 5211 Nov, [facility] [address] [address]- 8587 Nov, [facility] [id number] [place] [address] 32663- 5382 Nov, Back pain M54.9 [facility] [address] 48021- 2765 Nov, Shortness of breath R06.02 [facility] [id number] [place] [address] 88375- 8564 Nov, [facility] [id number] [place] [address] 67636- 2371 Oct, [facility] [id number] [place] [address] 89064- 3665 Oct, [facility] [id number] [place] [address] 11901- 5989 Oct, [facility] [id number] [place] [address] 34842- 1738 Oct, [facility] [id number] [place] [address] 60615- 2248 Oct, [facility] [address], [place] [address] 49[address] Oct, Back pain M54.9 [facility] [address] [address] 3682 Oct, Back pain M54.9 [facility] [address], [place] [address] 1492 Oct, [facility] [id number] [place] [address] 68305- 0687 September, [facility] [id number] [place] [address] 28185- 9267 September, [facility] [id number] [place] [address] 02542- 3352 September, [facility] [id number] [place] [address] 83188- 8530 September, Type 2 diabetes mellitus with other diabetic neurological complication E11.49 and Hypotension, unspecified hypotension type I95.9 [facility] [address], [place] [address] 7636 September, [facility] [address], [place] [address] 6207 September, [facility] [address], [place] [address] 0712 September, Back pain M54.9 [facility] [address], [place] [address]- 6149 Aug, [facility] [id number] [place] [address] 68819- 5855 Aug, Acute cystitis with hematuria N30.01 ; Ulcer of right foot, unspecified ulcer stage L97.519 ; HTN (hypertension) I10 ; COPD (chronic obstructive pulmonary disease) J44.9 and DM neuro manif type II E11.49 [facility] [id number] [address] 9397 11 Aug, 2017 Back pain M54.9 [facility] [id number] [place] [address] 64700- 1404 Jul, [facility] [id number] [place] [address] 85636- 5459 Jul, Back pain M54.9 [facility] [id number] [place] [address] 66609- 9497 Jul, [facility] [id number] [place] [address] 82535- 1727 09 Jul, 2017 DM neuro manif type II E11.49 and Ulcer of right foot, unspecified ulcer stage L97.519 [facility] [id number] [place] [address] 87975- 4875 Jun, [facility] [id number] [place] [address] 25789- 9304 Jun, [facility] [id number] [place] [address] 39177- 5242 May, Type 2 diabetes mellitus with other diabetic neurological complication E11.49 ; GERD (gastroesophageal reflux disease) K21.9 and PAD ( peripheral artery disease) I73.9 [facility] [id number] [place] [address] 84741- 0822 17 May, 2017 Decubital ulcer L89.90 ; Diabetes E11.9 and GERD ( gastroesophageal reflux disease) K21.9 [facility] [address] [place] [address] 11927- 8855 May, [facility] [id number] [place] [address] 48193- 3153 Apr, [facility] [id number] [place] [address] 46373- 3622 Mar, [facility] [id number] [place] [address] 32817- 3889 Mar, [facility] [address], [place] [address]- 1585 Feb, [facility] [id number] [place] [address] 53736- 2046 Feb, [facility] [id number] [place] [address] 77105- 8848 Jan, [facility] [id number] [place] [address] 16998- 7142 Jan, HTN (hypertension) I10 [facility] [id number] [place] [address] 01640- 6953 Jan, [facility] [id number] [place] [address] 37862- 9739 Dec, Back pain M54.9 [facility] [id number] [place] [address] 90852- 2553 Dec, Back pain M54.9 [facility] [id number] [place] [address] Dec, Encounter for immunization Z23 and Puncture wound of right foot, initial encounter S91.331A [facility] [id number] [place] [address] 82565- 3454 Dec, [facility] [id number] [place] [address] 30681- 1994 Nov, [facility] [id number] [place] [address] 93850- 8008 Nov, COPD (chronic obstructive pulmonary disease) J44.9 [facility] [id number] [place] [address] 55872- 7293 Nov, [facility] [id number] [place] [address] 77459- 8422 Oct, [facility] [id number] [place] [address] 10323- 1815 Oct, [facility] [id number] [place] [address] 34642- 3443 September, Onychomycosis B35.1 and DM neuro manif type II E11.49 [facility] [id number] [place] [address] 35383- 2395 September, [facility] [id number] [place] [address] 10527- 1238 Aug, [facility] [id number] [place] [address] 80052- 3163 Jul, Sinusitis, unspecified chronicity, unspecified location J32.9 and Cough R05 [facility] [address] 77563- 3766 Jul, Back pain M54.9 [facility] [id number] [place] [address] 73665- 5935 Jun, Back pain M54.9 [facility] [id number] [place] [address] 87889- 0040 06 Jun, 2016 COPD (chronic obstructive pulmonary disease) J44.9 [facility] [id number] [place] [address] 92497- 5633 May, [facility] [id number] [place] [address] 74750- 6403 May, [facility] [id number] [place] [address] 03203- 4221 May, Back pain M54.9 [facility] [id number] [place] [address] 15088- 2986 May, [facility] [id number] [place] [address] 27156- 4317 May, [facility] [id number] [place] [address] 08551- 9897 May, Diabetes E11.9 [facility] [id number] [place] [address] 70573- 6731 May, Diabetes E11.9 ; GERD (gastroesophageal reflux [...] Need for hepatitis C screening test Z11.59 [facility] [address] 69159- 8708 04 May, 2016 HTN (hypertension) I10 [facility] [address] 69420- 0998 29 Apr, 2016 [facility] [address] 47150- 4846 Apr, [facility] [id number] [place] [address] 96437- 3180 Apr, [facility] [id number] [place] [address] 50511- 6963 Apr, [facility] [id number] [place] [address] 75420- 2939 Apr, [facility] [id number] [place] [address] 69618- 3648 Mar, [facility] [id number] [place] [address] 85078- 4507 Mar, [facility] [id number] [place] [address] 40073- 7161 Mar, [facility] [address] 28663- 2279 Mar, [facility] [id number] [place] [address] 46590- 9650 02 Mar, 2016 Dental examination Z01.20 [facility] [address] [place] [address]- 2868 Feb, [facility] [id number] [place] [address] 73161- 8101 Feb, [facility] [id number] [place] [address] 57907- 6050 Feb, Back pain M54.9 [facility] [id number] [place] [address] 14155- 1526 Jan, [facility] [id number] [place] [address] 87049- 6405 Jan, [facility] [id number] [place] [address] 84173- 5111 Dec, Diabetes E11.9 ; GERD (gastroesophageal reflux disease) K21.9 ; ED (erectile dysfunction) N52.9 ; HTN (hypertension) I10 ; Insomnia G47.00 ; COPD (chronic obstructive pulmonary disease) J44.9 ; Neuropathy G62.9 and Bipolar depression F31.30 [facility] [id number] [place] [address] 18704- 6390 Dec, Type 2 diabetes mellitus with other diabetic neurological complication E11.49 and Onychomycosis B35.1 [facility] [address], [place] [address]- 0789 Dec, [facility] [address], [place] [address]- 4994 Dec, [facility] [id number] [place] [address] 68641- 3238 Dec, [facility] [id number] [place] [address] 13020- 3739 Dec, [facility] [id number] [place] [address] 49928- 0893 Nov, [facility] [address], [place] [address]- 5832 Nov, [facility] [id number] [address]- 7415 14 Oct, 2015 [facility] [id number] [place] [address] 05424- 5615 08 Oct, 2015 [facility] [id number] [place] [address] 66280- 7459 07 Oct, 2015 Back pain M54.9 [facility] [id number] [place] [address] 58655- 6018 06 Oct, 2015 [facility] [id number] [place] [address] 17838- 7243 Oct, [facility] [id number] [place] [address] 47629- 4592 Oct, [facility] [id number] [place] [address] 33447- 6374 Oct, HTN (hypertension) I10 [facility] [id number] [place] [address] 62447- 5215 Oct, Back pain M54.9 [facility] [address] [place] [address] 70993- 0671 Oct, Chronic pain syndrome G89.4 [facility] [address] [place] [address] 41757- 2202 September, Back pain M54.9 [facility] [address] [place] [address] 33335- 8565 September, HTN (hypertension) I10 [facility] [address], [place] [address]- 4255 Aug, Porokeratosis Q82.8 ; Onychomycosis B35.1 and Type 2 diabetes mellitus with other diabetic neurological complication E11.49 [facility] [address], [place] [address]- 6850 Aug, GERD (gastroesophageal reflux disease) K21.9 ; Diabetes E11.9 ; HTN (hypertension) I10 ; Insomnia G47.00 ; Restless legs syndrome G25.81 ; COPD (chronic obstructive pulmonary disease) J44.9 ; Back pain M54.9 and Bipolar 1 disorder F31.9 [facility] [id number] [place] [address] 30114- 5029 Aug, [facility] [id number] [place] [address] 10495- 6884 Aug, [facility] [address] 58581- 0367 Aug, [facility] [id number] [place] [address] 47592- 3231 Aug, [facility] [id number] [place] [address] 60313- 5184 Jul, [facility] [id number] [place] [address] 66979- 8382 Jul, [facility] [id number] [place] [address] 26712- 2812 Jul, [facility] [id number] [place] [address] 74536- 7614 Jul, [facility] [id number] [place] [address] 26970- 0827 Jul, [facility] [id number] [place] [address] 28674- 4866 Jul, [facility] [id number] [place] [address] 15301- 7491 Jun, Decubital ulcer L89.90 ; Diabetes E11.9 ; Back pain M54.9 ; HTN (hypertension) I10 and COPD (chronic obstructive pulmonary disease) J44.9 [facility] [id number] [place] [address] 52716- 4703 Jun, [facility] [id number] [place] [address] 91264- 0685 Jun, [facility] [address], [place] [address]- 4375 Jun, [facility] [id number] [place] [address] 11443- 9414 Jun, [facility] [id number] [place] [address] 85118- 6121 Jun, Diabetes E11.9 ; Insomnia G47.00 ; Decubital ulcer L89.90 ; GERD (gastroesophageal reflux disease) K21.9 ; Back pain M54.9 ; Superficial fungus infection of skin B36.9 and HTN (hypertension) I10 [address] [id number] [id number] Jun, Dental examination Z01.20 [facility] [id number] [place] [address] 01391- 7160 May, [facility] [id number] [place] [address] 12672- 0513 May, [facility] [address] [place] [address] 02642- 2501 May, [facility] [id number] [place] [address] 41871- 8246 May, Diabetes E11.9 ; HTN (hypertension) I10 and Decubital ulcer L89.90 [facility] [address] [place] [address] 37563- 6378 May, HTN (hypertension) I10 ; Decubital ulcer L89.90 and Diabetes E11.9 [facility] [id number] [place] [address] 21759- 5592 Apr, Diabetes E11.9 ; GERD (gastroesophageal reflux disease) K21.9 ; Back pain M54.9 ; HTN (hypertension) I10 ; Restless legs syndrome G25.81 and Decubital ulcer L89.90 [facility] [id number] [place] [address] 28844- 1531 Apr, [facility] [id number] [place] [address] 89786- 0553 Apr, Diabetes E11.9 ; HTN (hypertension) I10 ; Restless legs syndrome G25.81 ; GERD (gastroesophageal reflux disease) K21.9 and COPD ( chronic obstructive pulmonary disease) J44.9 [facility] [id number] [place] [address] 70480- 5502 Mar, [facility] [address] 49215- 9181 Mar, [facility] [address] 73732- 4740 Mar, Diabetes E11.9 ; Abscess L02.91 and Restless legs syndrome G25.81 [facility] [address] 41281- 4719 Mar, [facility] [address] 17389- 4443 Feb, GERD (gastroesophageal reflux disease) K21.9 ; Back pain M54.9 ; ED (erectile dysfunction) N52.9 ; Diabetes E11.9 ; HTN (hypertension) I10 and Insomnia G47.00 [facility] [id number] [place] [address] 79931- 1593 Feb, [facility] [id number] [place] [address] 81723- 3183 Feb, [facility] [id number] [place] [address] 06423- 0108 Jan, [facility] [id number] [place] [address] 51363- 7632 Jan, Diabetes 250.00 ; Nondependent cannabis abuse, continuous 305.21 ; Cough 786.2 ; Schizoaffective disorder, unspecified 295.70 ; Sciatica 724.3 ; Other, mixed, or unspecified nondependent drug abuse, unspecified 305.90 ; Chronic pain 338.29 ; GERD (gastroesophageal reflux disease) 530.81 and HTN (hypertension) 401.9 [facility] [id number] [place] [address] 29295- 2352 Jan, [facility] [id number] [place] [address] 97947- 7778 Jan, [facility] [id number] [place] [address] 74521- 3712 Jan, Chronic pain associated with significant psychosocial dysfunction 338.4 ; Diabetes mellitus without mention of complication, type I [ juvenile type], uncontrolled 250.03 ; Benign essential hypertension 401.1 ; Schizoaffective disorder, unspecified 295.70 ; Wheezing 786.07 ; Ear ache 388.70 ; Cough 786.2 ; Sciatica 724.3 and Foot pain, bilateral 729.5 [facility] [id number] [place] [address] 89386- 3740 Dec, [facility] [id number] [place] [address] 27613- 8499 Dec, [facility] [id number] [place] [address] 78302- 2399 Dec, [facility] [id number] [place] [address] 07586- [phone] Dec, [facility] [id number] [place] [address] 98888- 8639 Dec, [facility] [id number] [place] [address] 65701- 5807 Nov, Elevated liver enzymes 790.5 [facility] [id number] [place] [address] 28092- 1759 Nov, [facility] [id number] [place] [address] 01584- 5930 Nov, [facility] [id number] [place] [address] 94045- 2663 Nov, [facility] [id number] [place] [address] 04316- 1855 Nov, Benign essential hypertension 401.1 ; Diabetes mellitus without mention of complication, type I [juvenile type], uncontrolled 250.03 and Nondependent cannabis abuse, continuous 305.21 [facility] [id number] [address] Oct, Cellulitis 682.9 and Benign essential hypertension 401.1 [facility] [id number] [place] [address] 94556- 5364 Oct, [facility] [id number] [place] [address] 83721- 5057 September, [facility] [id number] [place] [address] 68502- 6365 September, [facility] [id number] [place] [address] 10376- 3021 Aug, [facility] [id number] [place] [address] 47573- 6413 Aug, [facility] [id number] [place] [address] 26581- 5770 Aug, [facility] [id number] [place] [address] 68179- 2906 Aug, [facility] [id number] [address] Jul, [facility] [id number] [address] 2813 Jul, [facility] [id number] [address] 9298 Jul, [facility] [id number] [place] [address] [id number] 18 Jul, 2014 [facility] [id number] Jul, [facility] [id number] [place] [address] 21171- 2783 Jul, [facility] [place] [facility] [address] [id number] [place] [address]32 Jun, [facility] [place] [facility] [address] [id number] [place] [address]- 5836 Jun, [facility] [place] [facility] [address] [id number] [place] [address]- 9756 Jun, [facility] [place] [facility] [address] [id number] [place] [address]- 8403 Jun, [facility] [place] [facility] [address] [id number] [place] [address]- 9811 Jun, [facility] [place] [facility] [address] [id number] [place] [address]- 5732 May, [facility] [place] [facility] [address] [id number] [place] [address]- 3609 May, [facility] [place] [facility] [address] [id number] [place] [address]- 4256 May, [facility] [place] [facility] [address] [id number] [place] [address]- 4493 May, [facility] [place] [facility] [address] [id number] [place] [address]- 4952 May, [facility] [place] [facility] [address] [id number] [place] [address] May, [facility] [place] [facility] [address] [id number] [place] [address] May, [facility] [place] [facility] [address] [id number] [place] [address] May, [facility] [place] [facility] [address] [id number] [place] [address] Apr, [facility] [place] [facility] [address] [id number] [place] [address] Apr, [facility] [place] [facility] [address] [id number] [place] [address] Apr, [facility] [place] [facility] [address] [id number] [place] [address] Apr, [facility] [place] [facility] [address] [id number] [place] [address] Mar, [facility] [place] [facility] [address] [id number] [place] [address] Mar, [facility] [place] [facility] [address] [id number] [place] [address] Mar, [facility] [place] [facility] [address] [id number] [place] [address] Mar, [facility] [place] [facility] [address] [id number] [place] [address] Feb, [facility] [place] [facility] [address] [id number] [place] [address] Feb, [facility] [place] [facility] [address] [id number] [place] [address] Feb, [facility] [place] [facility] [address] [id number] [place] [address] Feb, [facility] [place] [facility] [address] [id number] [place] [address] Feb, [facility] [place] [facility] [address] [id number] [place] [address] Feb, [facility] [place] [facility] [address] [id number] [place] [address] Jan, [facility] [place] [facility] [address] [id number] [place] [address] Jan, [facility] [place] [facility] [address] [id number] [place] [address] Jan, [facility] [place] [facility] [address] [id number] [place] [id number] [address] Jan, [facility] [place] [facility] [address] [id number] [place] [address]99 Dec, [facility] [place] [facility] [address] [id number] [place] [address] Dec, [facility] [place] [facility] [address] [id number] [place] [address] Dec, [facility] [place] [facility] [address] [id number] [place] [address] Dec, [facility] [place] [facility] [address] [id number] [place] [address] Dec, [facility] [place] [facility] [address] [id number] [place] [address]698 Dec, [facility] [place] [facility] [address] [id number] [place] [address] Oct, [facility] [place] [facility] [address] [id number] [place] [address] Oct, [facility] [place] [facility] [address] [id number] [place] [address] September, [facility] [place] [facility] [address] [id number] [place] [address] September, [facility] [place] [facility] [address] [id number] [place] [address] September, [facility] [place] [facility] [address] [id number] [place] [address] September, [facility] [place] [facility] [address] [id number] [place] [address] September, [facility] [place] [facility] [address] [id number] [place] [address] September, [facility] [place] [facility] [address] [id number] [place] [address] Aug, [facility] [place] [facility] [address] [id number] [place] [address] 15 Aug, 2013 [facility] [place] [facility] [address] [id number] [place] [address] Aug, [facility] [place] [facility] [address] [id number] [place] [address] Aug, [facility] [place] [facility] [address] [id number] [place] [address] Jul, [facility] [place] [facility] [address] [id number] [place] [address] Jul, [facility] [place] [facility] [address] [id number] [place] [address] Jun, [facility] [place] [facility] [address] [id number] [place] [address] Jun, [facility] [place] [facility] [address] [id number] [place] [address] May, [facility] [place] [facility] [address] [id number] [place] [address] May, [facility] [place] [facility] [address] [id number] [place] [address] Jan, [facility] [place] [facility] [address] [id number] [place] [address] Dec, [facility] [place] [facility] [address] [id number] [place] [address] Jun, [facility] [place] [facility] [address] [id number] [place] [address] May, [facility] [place] [facility] [address] [id number] [place] [address] Nov, [facility] [place] [facility] [address] [id number] [place] [address] September, [facility] [place] [facility] [address] [id number] [place] [address] Aug, [facility] [address] [facility] [id number] [address] Aug, [facility] [id number] [address] Aug, [facility] [address] [facility] [id number], [place] [address] Aug, [facility] [id number] [address] Nov, [facility] [address] [facility] [id number], [place] [address] Oct, [facility] [id number] [address] Jul, [facility] [id number] [address] [address] Feb, [facility] [id number], [place] [address] Feb, [facility] [id number] [address] [address] Apr, [facility] [id number], [place] [address] Apr, [facility] [id number] [address] Feb, [facility] [id number], [place] [address] Feb, [facility] [id number] [address] [address] Jul, IMMUNIZATIONS No Known Immunizations SOCIAL HISTORY Never Assessed REASON FOR VISIT Hydrocodone 7/ PLAN OF CARE VITAL SIGNS MEDICATIONS Medication [...]
--- OUTSIDE RECORDS SUMMARY | 2018-09-15 22:34 | XMS REPORT ---
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 Name Role Phone YVES BLEVINS Unavailable PROBLEMS Type Condition ICD9-CM Code AJD38-NO Code Onset Dates Condition Status SNOMED Code Problem HTN (hypertension) I10 Active 54922464 Problem Restless legs syndrome G25.81 Active 760106398 Problem GERD (gastroesophageal reflux disease) K21.9 Active 320680413 Problem Chronic hepatitis C without hepatic coma B18.2 Active 413760296 Problem ED (erectile dysfunction) N52.9 Active 578563170 Problem PAD (peripheral artery disease) I73.9 Active 796992251 Problem Ulcer of right foot, unspecified ulcer stage L97.519 Active 58062064 Problem 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 496005411 Problem COPD (chronic obstructive pulmonary disease) J44.9 Active 27467735 Problem DM neuro manif type II E11.49 Active 86554547 Problem Sinusitis, unspecified chronicity, unspecified location J32.9 Active 78671400 ALLERGIES No Information ENCOUNTERS Encounter Location Date Diagnosis [facility] [address], [place] [address] Dec, Back pain M54.9 [facility] [address], [place] [address] Dec, [facility] [address], [place] [address] Dec, Upper respiratory tract infection, unspecified type J06.9 [facility] [address], [place] [address] Dec, [facility] [address], [place] [address] Dec, Acute suppurative otitis media of right ear without spontaneous rupture of tympanic membrane, recurrence not specified H66.001 and Acute nasopharyngitis J00 [facility] [id number] [place] [address] 57037- 1610 Dec, Back pain M54.9 [facility] [id number] [place] [address] 18621- 7246 Dec, Foot infection L08.9 and Type 2 diabetes mellitus with other diabetic neurological complication E11.49 [facility] [address] [address]187- 4244 Nov, Cellulitis of toe of right foot L03.031 ; Polyneuropathy in diseases classified elsewhere G63 and HTN (hypertension) I10 [facility] [id number] [place] [address] 28966- 8868 Nov, [place] [address] 22882- 3041 Nov, [facility] [id number] [place] [address] 60278- 6057 Nov, Back pain M54.9 [facility] [address] 48084- 5020 Nov, Shortness of breath R06.02 [facility] [id number] [place] [address] 83805- 4347 Nov, [facility] [id number] [place] [address] 60399- 0178 Oct, [facility] [id number] [place] [address] 29271- 9034 Oct, [facility] [id number] [place] [address] 25809- 7501 Oct, [facility] [id number] [place] [address] 49712- 0070 Oct, [facility] [id number] [place] [address] 18403- 8135 Oct, [facility] [address], [place] [address] 0102 Oct, Back pain M54.9 [facility] [address], [place] [address] 6651 Oct, Back pain M54.9 [facility] [address], [place] [address] 8955 Oct, [facility] [id number] [place] [address] 71486- 1113 September, [facility] [id number] [place] [address] 28070- 1679 September, [facility] [id number] [place] [address] 60992- 7828 September, [facility] [id number] [place] [address] 44100- 7211 September, Type 2 diabetes mellitus with other diabetic neurological complication E11.49 and Hypotension, unspecified hypotension type I95.9 [facility] [address], [place] [address] 6914 September, [facility] [address], [place] [address] 6994 September, [facility] [address], [place] [address] 6228 September, Back pain M54.9 [facility] [address], [place] [address] 9285 Aug, [facility] [id number] [place] [address] 93077- 3960 Aug, Acute cystitis with hematuria N30.01 ; Ulcer of right foot, unspecified ulcer stage L97.519 ; HTN (hypertension) I10 ; COPD (chronic obstructive pulmonary disease) J44.9 and DM neuro manif type II E11.49 [facility] [id number] [address] 7813 11 Aug, 2017 Back pain M54.9 [facility] [id number] [place] [address] 78347- 4236 Jul, [facility] [id number] [place] [address] 61672- 2375 Jul, Back pain M54.9 [facility] [id number] [place] [address] 70949- 6711 Jul, [facility] [id number] [place] [address] 61603- 3970 09 Jul, 2017 DM neuro manif type II E11.49 and Ulcer of right foot, unspecified ulcer stage L97.519 [facility] [id number] [place] [address] 15067- 3806 Jun, [facility] [id number] [place] [address] 12294- 8617 Jun, [facility] [id number] [place] [address] 22347- 7760 May, Type 2 diabetes mellitus with other diabetic neurological complication E11.49 ; GERD (gastroesophageal reflux disease) K21.9 and PAD ( peripheral artery disease) I73.9 [facility] [address] [place] [address] 64580- 5949 17 May, 2017 Decubital ulcer L89.90 ; Diabetes E11.9 and GERD ( gastroesophageal reflux disease) K21.9 [facility] [id number] [place] [address] 87056- 0252 May, [facility] [id number] [place] [address] 68966- 2365 Apr, [facility] [id number] [place] [address] 86290- 2779 Mar, [facility] [id number] [place] [address] 38344- 3314 Mar, [facility] [address], [place] [address]- 0742 Feb, [facility] [id number] [place] [address] 96058- 8552 Feb, [facility] [id number] [place] [address] 67943- 7307 Jan, [facility] [id number] [place] [address] 18952- 4666 Jan, HTN (hypertension) I10 [facility] [id number] [place] [address] 37480- 4534 Jan, [facility] [id number] [place] [address] 95997- 6095 Dec, Back pain M54.9 [facility] [id number] [place] [address] 23688- 3440 Dec, Back pain M54.9 [facility] [id number] [place] [address] 56296 -6873 Dec, Encounter for immunization Z23 and Puncture wound of right foot, initial encounter S91.331A [facility] [id number] [place] [address] 23340- 3697 Dec, [facility] [id number] [place] [address] 11495- 8202 Nov, [facility] [id number] [place] [address] 08149- 5905 Nov, COPD (chronic obstructive pulmonary disease) J44.9 [facility] [id number] [place] [address] 56164- 9292 Nov, [facility] [id number] [place] [address] 97339- 2059 Oct, [facility] [id number] [place] [address] 59823- 6480 Oct, [facility] [id number] [place] [address] 54195- 7972 September, Onychomycosis B35.1 and DM neuro manif type II E11.49 [facility] [id number] [place] [address] 03566- 9341 September, [facility] [id number] [place] [address] 96085- 3253 Aug, [facility] [id number] [place] [address] 23238- 1637 Jul, Sinusitis, unspecified chronicity, unspecified location J32.9 and Cough R05 [facility] [address] 29681- 2978 Jul, Back pain M54.9 [facility] [id number] [place] [address] 27301- 2224 Jun, Back pain M54.9 [facility] [id number] [place] [address] 60315- 5908 06 Jun, 2016 COPD (chronic obstructive pulmonary disease) J44.9 [facility] [id number] [place] [address] 71514- 9832 May, [facility] [id number] [place] [address] 12591- 3788 May, [facility] [id number] [place] [address] 24298- 0361 May, Back pain M54.9 [facility] [id number] [place] [address] 94745- 1297 May, [facility] [id number] [place] [address] 36275- 9899 May, [facility] [id number] [place] [address] 16076- 1105 May, Diabetes E11.9 [facility] [id number] [place] [address] 98803- 2675 May, Diabetes E11.9 ; GERD (gastroesophageal reflux [...] Need for hepatitis C screening test Z11.59 [facility] [address] 41425- 0235 04 May, 2016 HTN (hypertension) I10 [facility] [address] 24229- 1251 29 Apr, 2016 [facility] [address] 70380- 2254 Apr, [facility] [id number] [place] [address] 29418- 0331 Apr, [facility] [id number] [place] [address] 67530- 0121 Apr, [facility] [id number] [place] [address] 42858- 2938 Apr, [facility] [id number] [place] [address] 01885- 8206 Mar, [facility] [id number] [place] [address] 19640- 5271 Mar, [facility] [id number] [place] [address] 75181- 3780 Mar, [facility] [address] 44124- 5644 Mar, [facility] [id number] [place] [address] 94551- 0875 02 Mar, 2016 Dental examination Z01.20 [facility] [address] [place] [address]- 8950 Feb, [facility] [id number] [place] [address] 01873- 8120 Feb, [facility] [id number] [place] [address] 54215- 0204 Feb, Back pain M54.9 [facility] [id number] [place] [address] 95053- 5779 Jan, [facility] [id number] [place] [address] 17401- 3813 Jan, [facility] [id number] [place] [address] 66392- 4363 Dec, Diabetes E11.9 ; GERD (gastroesophageal reflux disease) K21.9 ; ED (erectile dysfunction) N52.9 ; HTN (hypertension) I10 ; Insomnia G47.00 ; COPD (chronic obstructive pulmonary disease) J44.9 ; Neuropathy G62.9 and Bipolar depression F31.30 [facility] [id number] [place] [address] 49190- 6595 Dec, Type 2 diabetes mellitus with other diabetic neurological complication E11.49 and Onychomycosis B35.1 [facility] [address], [place] [address]- 4676 Dec, [facility] [address], [place] [address]- 3727 Dec, [facility] [id number] [place] [address] 49416- 9542 Dec, [facility] [id number] [place] [address] 38199- 3759 Dec, [facility] [id number] [place] [address] 28327- 4116 Nov, [facility] [address], [place] [address]- 8250 Nov, [facility] [id number] [place] [address]- 3262 14 Oct, 2015 [facility] [id number] [place] [address] 27718- 0328 08 Oct, 2015 [facility] [id number] [place] [address] 83884- 5714 07 Oct, 2015 Back pain M54.9 [facility] [id number] [place] [address] 43863- 7574 06 Oct, 2015 [facility] [id number] [place] [address] 66103- 2166 Oct, [facility] [id number] [place] [address] 55736- 6958 Oct, [facility] [address] [place] [address] 13078- 0876 Oct, HTN (hypertension) I10 [facility] [id number] [place] [address] 76172- 8479 Oct, Back pain M54.9 [facility] [id number] [place] [address] 01503- 9729 Oct, Chronic pain syndrome G89.4 [facility] [id number] [place] [address] 73015- 9490 September, Back pain M54.9 [facility] [id number] [place] [address] 19311- 8213 September, HTN (hypertension) I10 [facility] [address], [place] [address]- 8559 Aug, Porokeratosis Q82.8 ; Onychomycosis B35.1 and Type 2 diabetes mellitus with other diabetic neurological complication E11.49 [facility] [address], [place] [address]- 1416 Aug, GERD (gastroesophageal reflux disease) K21.9 ; Diabetes E11.9 ; HTN (hypertension) I10 ; Insomnia G47.00 ; Restless legs syndrome G25.81 ; COPD (chronic obstructive pulmonary disease) J44.9 ; Back pain M54.9 and Bipolar 1 disorder F31.9 [facility] [id number] [place] [address] 70459- 0183 Aug, [facility] [id number] [place] [address] 75997- 7176 Aug, [facility] [address] 79400- 8619 Aug, [facility] [id number] [place] [address] 20714- 8858 Aug, [facility] [id number] [place] [address] 27730- 0211 Jul, [facility] [id number] [place] [address] 51398- 0018 Jul, [facility] [id number] [place] [address] 99003- 7330 Jul, [facility] [id number] [place] [address] 28269- 1606 Jul, [facility] [id number] [place] [address] 60110- 5055 Jul, [facility] [id number] [place] [address] 55825- 4931 Jul, [facility] [id number] [place] [address] 14218- 1717 Jun, Decubital ulcer L89.90 ; Diabetes E11.9 ; Back pain M54.9 ; HTN (hypertension) I10 and COPD (chronic obstructive pulmonary disease) J44.9 [facility] [id number] [place] [address] 87890- 2912 Jun, [facility] [id number] [place] [address] 07944- 3515 Jun, [facility] [address], [place] [address]- 9668 Jun, [facility] [id number] [place] [address] 83516- 5356 Jun, [facility] [address] [place] [address] 43804- 2099 Jun, Diabetes E11.9 ; Insomnia G47.00 ; Decubital ulcer L89.90 ; GERD (gastroesophageal reflux disease) K21.9 ; Back pain M54.9 ; Superficial fungus infection of skin B36.9 and HTN (hypertension) I10 [address] [id number] [id number] Jun, Dental examination Z01.20 [facility] [id number] [place] [address] 42150- 4060 May, [facility] [id number] [place] [address] 76882- 4237 May, [facility] [address] [place] [address] 02843- 4978 May, [facility] [id number] [place] [address] 11079- 2480 May, Diabetes E11.9 ; HTN (hypertension) I10 and Decubital ulcer L89.90 [facility] [address] [place] [address] 89348- 4573 May, HTN (hypertension) I10 ; Decubital ulcer L89.90 and Diabetes E11.9 [facility] [address] [place] [address] 46470- 9401 Apr, Diabetes E11.9 ; GERD (gastroesophageal reflux disease) K21.9 ; Back pain M54.9 ; HTN (hypertension) I10 ; Restless legs syndrome G25.81 and Decubital ulcer L89.90 [facility] [address] [place] [address] 49293- 0908 Apr, [facility] [id number] [place] [address] 89927- 2773 Apr, Diabetes E11.9 ; HTN (hypertension) I10 ; Restless legs syndrome G25.81 ; GERD (gastroesophageal reflux disease) K21.9 and COPD ( chronic obstructive pulmonary disease) J44.9 [facility] [id number] [place] [address] 30547- 2660 Mar, [place] [address] 42721- 4965 Mar, [place] [address] 79595- 1033 Mar, Diabetes E11.9 ; Abscess L02.91 and Restless legs syndrome G25.81 [place] [facility] [address] 50655- 6232 Mar, [place] [address] 90333- 9791 Feb, GERD (gastroesophageal reflux disease) K21.9 ; Back pain M54.9 ; ED (erectile dysfunction) N52.9 ; Diabetes E11.9 ; HTN (hypertension) I10 and Insomnia G47.00 [facility] [id number] [place] [address] 23605- 0157 Feb, [facility] [id number] [place] [address] 47028- 5774 Feb, [facility] [id number] [place] [address] 57590- 9595 Jan, [facility] [id number] [place] [address] 45035- 7689 Jan, Diabetes 250.00 ; Nondependent cannabis abuse, continuous 305.21 ; Cough 786.2 ; Schizoaffective disorder, unspecified 295.70 ; Sciatica 724.3 ; Other, mixed, or unspecified nondependent drug abuse, unspecified 305.90 ; Chronic pain 338.29 ; GERD (gastroesophageal reflux disease) 530.81 and HTN (hypertension) 401.9 [facility] [id number] [place] [address] 65139- 2752 Jan, [facility] [id number] [place] [address] 48199- 4526 Jan, [facility] [id number] [place] [address] 00886- 1338 Jan, Chronic pain associated with significant psychosocial dysfunction 338.4 ; Diabetes mellitus without mention of complication, type I [ juvenile type], uncontrolled 250.03 ; Benign essential hypertension 401.1 ; Schizoaffective disorder, unspecified 295.70 ; Wheezing 786.07 ; Ear ache 388.70 ; Cough 786.2 ; Sciatica 724.3 and Foot pain, bilateral 729.5 [facility] [id number] [place] [address] 82753- 6017 Dec, [facility] [id number] [place] [address] 45355- 5627 Dec, [facility] [id number] [place] [address] 51358- 0423 Dec, [facility] [id number] [place] [address] 26791- 8726 Dec, [facility] [id number] [place] [address] 98933- 9110 Dec, [facility] [id number] [place] [address] 24301- 4351 Nov, Elevated liver enzymes 790.5 [facility] [id number] [place] [address] 21091- 7115 Nov, [facility] [id number] [place] [address] 01546- 1417 Nov, [facility] [id number] [place] [address] 86657- 3818 Nov, [facility] [id number] [place] [address] 72385- 4505 Nov, Benign essential hypertension 401.1 ; Diabetes mellitus without mention of complication, type I [juvenile type], uncontrolled 250.03 and Nondependent cannabis abuse, continuous 305.21 [facility] [address] [address]- 0527 Oct, Cellulitis 682.9 and Benign essential hypertension 401.1 [facility] [id number] [place] [address] 99296- 4347 Oct, [facility] [id number] [place] [address] 92246- 8448 September, [facility] [id number] [place] [address] 74212- 5662 September, [facility] [id number] [place] [address] 97826- 2854 Aug, [facility] [id number] [place] [address] 88513- 4242 Aug, [facility] [address] [place] [address] 53313- 5170 Aug, [facility] [id number] [place] [address] 22906- 4532 Aug, [facility] [address], [place] [address]- 6865 Jul, [facility] [address], [place] [address]- 2992 Jul, [facility] [address] [place] [address]- 9756 Jul, [facility] [id number] [place] [address] 28000590- 5223 18 Jul, 2014 [facility] [address] 1404 Jul, [facility] [id number] [place] [address] 65871- 2270 Jul, [facility] [place] [facility] [address] [id number] [place] [address]- 2322 Jun, [facility] [place] [facility] [address] [id number] [place] [address]- 8376 Jun, [facility] [place] [facility] [address] [id number] [place] [address] Jun, [facility] [place] [facility] [address] [id number] [place] [address] Jun, [facility] [place] [facility] [address] [id number] [place] [address] Jun, [facility] [place] [facility] [address] [id number] [place] [address] May, [facility] [place] [facility] [address] [id number] [place] [address] May, [facility] [place] [facility] [address] [id number] [place] [address] May, [facility] [place] [facility] [address] [id number] [place] [address] May, [facility] [place] [facility] [address] [id number] [place] [address] May, [facility] [place] [facility] [address] [id number] [place] [address] May, [facility] [place] [facility] [address] [id number] [place] [address]- [address] May, [facility] [place] [facility] [address] [id number] [place] [address] May, [facility] [place] [facility] [address] [id number] [place] [address] Apr, [facility] [place] [facility] [address] [id number] [place] [address] Apr, [facility] [place] [facility] [address] [id number] [place] [address] Apr, [facility] [place] [facility] [address] [id number] [place] [address]- [address] Apr, [facility] [place] [facility] [address] [id number] [place] [address] Mar, [facility] [place] [facility] [address] [id number] [place] [address]- [address] Mar, [facility] [place] [facility] [address] [id number] [place] [address]- [address] Mar, [facility] [place] [facility] [address] [id number] [place] [address] Mar, [facility] [place] [facility] [address] [id number] [place] [address] Feb, [facility] [place] [facility] [address] [id number] [place] [address]- [id number] Feb, [facility] [place] [facility] [address] [id number] [place] [address] Feb, [facility] [place] [facility] [address] [id number] [place] [address] Feb, [facility] [place] [facility] [address] [id number] [place] [address] Feb, [facility] [place] [facility] [address] [id number] [place] [address] Feb, [facility] [place] [facility] [address] [id number] [place] [address] Jan, [facility] [place] [facility] [address] [id number] [place] [address] Jan, [facility] [place] [facility] [address] [id number] [place] [address] Jan, [facility] [place] [facility] [address] [id number] [place] [id number] Jan, [facility] [place] [facility] [address] [id number] [place] [address] Dec, [facility] [place] [facility] [address] [id number] [place] [address] Dec, [facility] [place] [facility] [address] [id number] [place] [address] Dec, [facility] [place] [facility] [address] [id number] [place] [address] Dec, [facility] [place] [facility] [address] [id number] [place] [address] Dec, [facility] [place] [facility] [address] [id number] [place] [address] 2006 Dec, [facility] [place] [facility] [address] [id number] [place] [address] Oct, [facility] [place] [facility] [address] [id number] [place] [address]65 Oct, [facility] [place] [facility] [address] [id number] [place] [address] 113[address] September, [facility] [place] [facility] [address] [id number] [place] [address] 47[address] September, [facility] [place] [facility] [address] [id number] [place] [address] 4440 September, [facility] [place] [facility] [address] [id number] [place] [address] September, [facility] [place] [facility] [address] [id number] [place] [address]- [address]199 September, [facility] [place] [facility] [address] [id number] [place] [address] 31[address] September, [facility] [place] [facility] [address] [id number] [place] [address]247 Aug, [facility] [place] [facility] [address] [id number] [place] [address]- [address] 15 Aug, 2013 [facility] [place] [facility] [address] [id number] [place] [address] Aug, [facility] [place] [facility] [address] [id number] [place] [address] Aug, [facility] [place] [facility] [address] [id number] [place] [address] Jul, [facility] [place] [facility] [address] [id number] [place] [address] Jul, [facility] [place] [facility] [address] [id number] [place] [address] Jun, [facility] [place] [facility] [address] [id number] [place] [address] Jun, [facility] [place] [facility] [address] [id number] [place] [address] 130[address] May, [facility] [place] [facility] [address] [id number] [place] [address] May, [facility] [place] [facility] [address] [id number] [place] [address] Jan, [facility] [place] [facility] [address] [id number] [place] [address] Dec, [facility] [place] [facility] [address] [id number] [place] [address] 389[address] Jun, [facility] [place] [facility] [address] [id number] [place] [address] May, [facility] [place] [facility] [address] [id number] [place] [address] 1580 Nov, [facility] [place] [facility] [address] [id number] [place] [address] September, [facility] [place] [facility] [address] [id number] [place] [address]65 Aug, [facility] [address] [facility] [id number] [address] Aug, [facility] [id number] [address] Aug, [facility] [address] [facility] [id number] [address] [address] Aug, [facility] [id number], [place] [address] Nov, [facility] [address] [facility] [id number], [place] [address] Oct, [facility] [id number], [place] [address] Jul, [facility] [id number], [place] [address] Feb, [facility] [id number], [place] [address] Feb, [facility] [id number], [place] [address] Apr, [facility] [id number], [place] [address] Apr, [facility] [address] [id number] [address] Feb, [facility] [id number], [place] [address] Feb, [facility] [address] [id number], [place] [address] Jul, IMMUNIZATIONS No Known Immunizations SOCIAL HISTORY Never Assessed REASON FOR VISIT PLAN OF CARE Activity Details Pending Test Xray : Chest (PA lateral) VITAL SIGNS MEDICATIONS Unknown Medications RESULTS No [...]
--- OUTSIDE RECORDS SUMMARY | 2018-09-15 22:34 | XMS REPORT ---
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 Name Role Phone YVES BLEVINS Unavailable PROBLEMS Type Condition ICD9-CM Code ABZ03-SJ Code Onset Dates Condition Status SNOMED Code Problem HTN (hypertension) I10 Active 88798551 Problem Restless legs syndrome G25.81 Active 472340606 Problem GERD (gastroesophageal reflux disease) K21.9 Active 615974333 Problem Chronic hepatitis C without hepatic coma B18.2 Active 606835703 Problem ED (erectile dysfunction) N52.9 Active 612466867 Problem PAD (peripheral artery disease) I73.9 Active 566622812 Problem Ulcer of right foot, unspecified ulcer stage L97.519 Active 12763552 Problem 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 176301508 Problem COPD (chronic obstructive pulmonary disease) J44.9 Active 35201485 Problem DM neuro manif type II E11.49 Active 54177177 Problem Sinusitis, unspecified chronicity, unspecified location J32.9 Active 33485801 ALLERGIES No Information ENCOUNTERS Encounter Location Date Diagnosis [facility] [address] [address] Dec, [facility] [id number] [place] [address] 21500- 7899 Dec, [facility] [id number] [address] Dec, Upper respiratory tract infection, unspecified type J06.9 [facility] [address] [address] Dec, [facility] [address] [address] Dec, Acute suppurative otitis media of right ear without spontaneous rupture of tympanic membrane, recurrence not specified H66.001 and Acute nasopharyngitis J00 [facility] [id number] [place] [address] 57018- 6021 Dec, Back pain M54.9 [facility] [id number] [place] [address] 78935- 7377 Dec, Foot infection L08.9 and Type 2 diabetes mellitus with other diabetic neurological complication E11.49 [facility] [address] 24399- 4313 Nov, Cellulitis of toe of right foot L03.031 ; Polyneuropathy in diseases classified elsewhere G63 and HTN (hypertension) I10 [facility] [address] 49974- 1246 Nov, [facility] [address] 70969- 6235 Nov, [facility] [address] 65378- 8035 Nov, Back pain M54.9 [facility] [address] 82983- 0197 Nov, Shortness of breath R06.02 [facility] [id number] [place] [address] 85389- 4811 Nov, [facility] [id number] [place] [address] 65879- 0211 Oct, [facility] [id number] [place] [address] 01653- 7408 Oct, [facility] [address] 96484- 4359 Oct, [facility] [id number] [place] [address] 98637- 6972 Oct, [facility] [id number] [place] [address] 44414- 7416 Oct, [facility] [id number] [place] [address] 84986- 0279 Oct, Back pain M54.9 [facility] [id number] [place] [address] 69937- 5694 Oct, Back pain M54.9 [facility] [id number] [place] [address] 55582- 0480 Oct, [facility] [id number] [place] [address] 02471- 3994 September, [facility] [id number] [place] [address] 38044- 5259 September, [facility] [id number] [place] [address] 50124- 4041 September, [facility] [id number] [place] [address] 67985- 5320 September, Type 2 diabetes mellitus with other diabetic neurological complication E11.49 and Hypotension, unspecified hypotension type I95.9 [facility] [id number] [place] [address] 65179- 8050 September, [facility] [id number] [place] [address] 07114- 4551 September, [facility] [id number] [place] [address] 70768- 3113 September, Back pain M54.9 [facility] [id number] [place] [address] 26983- 8999 Aug, [facility] [id number] [place] [address] 64658- 9861 Aug, Acute cystitis with hematuria N30.01 ; Ulcer of right foot, unspecified ulcer stage L97.519 ; HTN (hypertension) I10 ; COPD (chronic obstructive pulmonary disease) J44.9 and DM neuro manif type II E11.49 [facility] [id number] [place] [address] 34962- 3091 Aug, Back pain M54.9 [facility] [id number] [place] [address] 08419- 3368 Jul, [facility] [id number] [place] [address] 40419- 8118 Jul, Back pain M54.9 [facility] [id number] [place] [address] 62516- 8351 Jul, [facility] [id number] [place] [address] 84599- 3073 Jul, DM neuro manif type II E11.49 and Ulcer of right foot, unspecified ulcer stage L97.519 [facility] [id number] [place] [address] 16206- 7066 Jun, [place] [address] 55406- 5655 Jun, [facility] [id number] [place] [address] 19681- 4530 May, Type 2 diabetes mellitus with other diabetic neurological complication E11.49 ; GERD (gastroesophageal reflux disease) K21.9 and PAD ( peripheral artery disease) I73.9 [place] [facility] [id number] [place] [address] 16373- 2174 17 May, 2017 Decubital ulcer L89.90 ; Diabetes E11.9 and GERD ( gastroesophageal reflux disease) K21.9 [facility] [id number] [place] [address] 84654- 0478 May, [facility] [id number] [place] [address] 84146- 2704 Apr, [facility] [id number] [place] [address] 86674- 6492 Mar, [facility] [id number] [place] [address] 09169- 3354 Mar, [facility] [address] [address]- 9697 Feb, [facility] [id number] [place] [address] 29159- 4798 Feb, [facility] [id number] [place] [address] 64433- 1078 Jan, [facility] [id number] [place] [address] 99824- 0860 Jan, HTN (hypertension) I10 [facility] [id number] [place] [address] 64644- 3776 Jan, [facility] [id number] [place] [address] 08217- 6220 Dec, Back pain M54.9 [facility] [id number] [place] [address] 48520- 2875 Dec, Back pain M54.9 [facility] [id number] [place] [address] 39891 -4801 Dec, Encounter for immunization Z23 and Puncture wound of right foot, initial encounter S91.331A [facility] [id number] [place] [address] 14655- 6307 Dec, [facility] [id number] [place] [address] 45178- 4127 Nov, [facility] [id number] [place] [address] 57170- 9795 Nov, COPD (chronic obstructive pulmonary disease) J44.9 [facility] [id number] [place] [address] 10872- 9903 Nov, [facility] [id number] [place] [address] 15426- 7935 Oct, [facility] [address] [address]- 7498 Oct, [facility] [id number] [place] [address] 87974- 5596 September, Onychomycosis B35.1 and DM neuro manif type II E11.49 [facility] [id number] [place] [address] 36833- 8770 September, [facility] [id number] [place] [address] 52930- 3273 Aug, [facility] [id number] [place] [address] 39439- 1831 Jul, Sinusitis, unspecified chronicity, unspecified location J32.9 and Cough R05 [facility] [id number] [place] [address] 44540- 3623 Jul, Back pain M54.9 [facility] [id number] [place] [address] 38134- 8428 14 Jun, 2016 Back pain M54.9 [facility] [id number] [place] [address] 71283- 4179 06 Jun, 2016 COPD (chronic obstructive pulmonary disease) J44.9 [facility] [id number] [place] [address] 81150- 3126 May, [facility] [id number] [place] [address] 16755- 2978 May, [facility] [id number] [place] [address] 77164- 3419 May, Back pain M54.9 [facility] [id number] [place] [address] 11327- 9087 May, [facility] [id number] [place] [address] 87456- 6921 May, [facility] [id number] [place] [address] 31555- 8926 May, Diabetes E11.9 [facility] [id number] [place] [address] 58798- 3374 11 May, 2016 Diabetes E11.9 ; GERD [...] Need for hepatitis C screening test Z11.59 [facility] [id number] [place] [address] 88908- 3544 04 May, 2016 HTN (hypertension) I10 [facility] [address] 80017- 2570 29 Apr, 2016 [facility] [id number] [place] [address] 84685- 8704 Apr, [facility] [address] 65038- 9495 Apr, [facility] [id number] [place] [address] 71707- 6277 Apr, [facility] [address] 34061- 1502 Apr, [facility] [id number] [place] [address] 76425- 9284 Mar, [facility] [id number] [place] [address] 49164- 5794 Mar, [facility] [id number] [place] [address] 44388- 5898 Mar, [facility] [address] 53329- 1249 18 Mar, 2016 [facility] [id number] [place] [address] 11133- 5156 02 Mar, 2016 Dental examination Z01.20 [facility] [address] 82114- 7260 Feb, [facility] [address] [address]- 4219 Feb, [facility] [id number] [place] [address] 05004- 2566 Feb, Back pain M54.9 [facility] [id number] [place] [address] 02855- 1741 Jan, [facility] [id number] [place] [address] 59965- 0762 Jan, [facility] [id number] [place] [address] 12978- 3932 Dec, Diabetes E11.9 ; GERD (gastroesophageal reflux disease) K21.9 ; ED (erectile dysfunction) N52.9 ; HTN (hypertension) I10 ; Insomnia G47.00 ; COPD (chronic obstructive pulmonary disease) J44.9 ; Neuropathy G62.9 and Bipolar depression F31.30 [facility] [id number] [place] [address] 84288- 7511 Dec, Type 2 diabetes mellitus with other diabetic neurological complication E11.49 and Onychomycosis B35.1 [facility] [id number] [place] [address] 66824- 6634 Dec, [facility] [address] [address]- 8181 Dec, [facility] [id number] [place] [address] 23083- 2432 Dec, [facility] [id number] [place] [address] 50532- 1357 Dec, [facility] [id number] [place] [address] 72580047- 1054 Nov, [facility] [id number] [place] [address] 56530405- 8904 Nov, [facility] [id number] [place] [address] 58455- 9049 14 Oct, 2015 [facility] [id number] [place] [address] 31964- 9579 08 Oct, 2015 [facility] [id number] [place] [address] 86376- 1363 07 Oct, 2015 Back pain M54.9 [facility] [id number] [place] [address] 49852- 0004 Oct, [facility] [id number] [place] [address] 52165- 5431 Oct, [facility] [id number] [place] [address] 67491- 4437 Oct, [facility] [id number] [place] [address] 48389- 0685 Oct, HTN (hypertension) I10 [facility] [id number] [place] [address] 06300- 6815 Oct, Back pain M54.9 [facility] [id number] [place] [address] 27577- 4754 Oct, Chronic pain syndrome G89.4 [facility] [id number] [place] [address] 81191- 8698 September, Back pain M54.9 [facility] [id number] [place] [address] 92938- 6550 September, HTN (hypertension) I10 [facility] [id number] [place] [address] 90005- 9492 Aug, Porokeratosis Q82.8 ; Onychomycosis B35.1 and Type 2 diabetes mellitus with other diabetic neurological complication E11.49 [facility] [address] [place] [address] 53474- 3914 Aug, GERD (gastroesophageal reflux disease) K21.9 ; Diabetes E11.9 ; HTN (hypertension) I10 ; Insomnia G47.00 ; Restless legs syndrome G25.81 ; COPD (chronic obstructive pulmonary disease) J44.9 ; Back pain M54.9 and Bipolar 1 disorder F31.9 [facility] [address] [address]- 7145 Aug, [facility] [address] [address]- 0644 Aug, [facility] [id number] [place] [address] 49289- 1568 Aug, [facility] [id number] [place] [address] 06379- 5247 Aug, [facility] [id number] [place] [address] 65677- 2067 Jul, [facility] [id number] [place] [address] 63565- 3640 Jul, [facility] [id number] [place] [address] 82988- 2258 Jul, [facility] [address] [address]- 1932 Jul, [facility] [id number] [place] [address] 91506- 2696 Jul, [facility] [address] [address]- 3551 Jul, [facility] [address] [address]- 3555 17 Jun, 2015 Decubital ulcer L89.90 ; Diabetes E11.9 ; Back pain M54.9 ; HTN (hypertension) I10 and COPD (chronic obstructive pulmonary disease) J44.9 [facility] [address] [address]- 6463 Jun, [facility] [address] [address]- 6565 Jun, [facility] [id number] [address]- 2699 Jun, [facility] [id number] [place] [address] 85190- 4051 Jun, [facility] [id number] [place] [address] 87363- 2294 Jun, Diabetes E11.9 ; Insomnia G47.00 ; Decubital ulcer L89.90 ; GERD (gastroesophageal reflux disease) K21.9 ; Back pain M54.9 ; Superficial fungus infection of skin B36.9 and HTN (hypertension) I10 [address] [id number] [id number] Jun, Dental examination Z01.20 [place] [id number] [place] [address] 37033- 6365 May, [facility] [id number] [place] [address] 21164- 6414 May, [place] [place] [id number] [place] [address] 76245- 5742 May, [facility] [id number] [place] [address] 90097- 8973 May, Diabetes E11.9 ; HTN (hypertension) I10 and Decubital ulcer L89.90 [place] [address] [place] [address] 52376- 5849 May, HTN (hypertension) I10 ; Decubital ulcer L89.90 and Diabetes E11.9 [place] [address] [address]- 9521 Apr, Diabetes E11.9 ; GERD (gastroesophageal reflux disease) K21.9 ; Back pain M54.9 ; HTN (hypertension) I10 ; Restless legs syndrome G25.81 and Decubital ulcer L89.90 [place] [address] [address]- 5934 Apr, [facility] [id number] [place] [address] 51745- 5946 Apr, Diabetes E11.9 ; HTN (hypertension) I10 ; Restless legs syndrome G25.81 ; GERD (gastroesophageal reflux disease) K21.9 and COPD ( chronic obstructive pulmonary disease) J44.9 [facility] [id number] [place] [address] 77286- 1010 Mar, [place] [address] 73829- 3940 Mar, [place] [address] 00856- 6579 Mar, Diabetes E11.9 ; Abscess L02.91 and Restless legs syndrome G25.81 [facility] [id number] [place] [address] 92073- 8079 Mar, [place] [address] 44801- 2028 Feb, GERD (gastroesophageal reflux disease) K21.9 ; Back pain M54.9 ; ED (erectile dysfunction) N52.9 ; Diabetes E11.9 ; HTN (hypertension) I10 and Insomnia G47.00 [place] [id number] [place] [address] 81539- 5878 Feb, [facility] [id number] [place] [address] 77116- 8811 Feb, [facility] [id number] [place] [address] 95326- 6367 Jan, [facility] [id number] [place] [address] 87180- 0144 Jan, Diabetes 250.00 ; Nondependent cannabis abuse, continuous 305.21 ; Cough 786.2 ; Schizoaffective disorder, unspecified 295.70 ; Sciatica 724.3 ; Other, mixed, or unspecified nondependent drug abuse, unspecified 305.90 ; Chronic pain 338.29 ; GERD (gastroesophageal reflux disease) 530.81 and HTN (hypertension) 401.9 [facility] [address] [address]- 3875 Jan, [facility] [id number] [place] [address] 27885- 1715 Jan, [facility] [id number] [address]- 7929 Jan, Chronic pain associated with significant psychosocial dysfunction 338.4 ; Diabetes mellitus without mention of complication, type I [ juvenile type], uncontrolled 250.03 ; Benign essential hypertension 401.1 ; Schizoaffective disorder, unspecified 295.70 ; Wheezing 786.07 ; Ear ache 388.70 ; Cough 786.2 ; Sciatica 724.3 and Foot pain, bilateral 729.5 [facility] [id number] [place] [address] 55882- 3511 Dec, [facility] [id number] [place] [address] 11373- 3096 Dec, [facility] [id number] [place] [address] 19312- 4334 Dec, [facility] [id number] [place] [address] 40852- 3288 Dec, [facility] [id number] [address]- 3859 Dec, [facility] [id number] [place] [address] [id number]- 4550 Nov, Elevated liver enzymes 790.5 [facility] [id number] [place] [address] [id number]- 2891 Nov, [facility] [id number] [place] [address] [id number]- 6496 Nov, [facility] [id number] [address] 5[address] Nov, [facility] [id number] [place] [address] 33722- 9835 Nov, Benign essential hypertension 401.1 ; Diabetes mellitus without mention of complication, type I [juvenile type], uncontrolled 250.03 and Nondependent cannabis abuse, continuous 305.21 [facility] [id number] [place] [address] 62130- 9152 Oct, Cellulitis 682.9 and Benign essential hypertension 401.1 [facility] [id number] [place] [address] 44267- 8092 Oct, [facility] [id number] [place] [address] 11877- 8208 September, [facility] [id number] [place] [address] 07874- 3483 September, [facility] [id number] [place] [address] 19520- 1210 Aug, [facility] [id number] [place] [address] 11941- 9396 Aug, [facility] [id number] [place] [address] 24078- 9589 Aug, [facility] [id number] [place] [address] 01914- 5629 Aug, [facility] [id number] [place] [address] 58885- 8202 Jul, [facility] [id number] [place] [address] 25750- 0431 Jul, [facility] [id number] [place] [address] 11687- [phone] Jul, [facility] [id number] [place] [address]- [address]42 Jul, [facility] [id number] [place] [address]- 4556 Jul, [facility] [id number] [place] [address]- 3772 Jul, [facility] [place] [facility] [address] [id number] [place] [address] Jun, [facility] [place] [facility] [address] [id number] [place] [address] 8[address] Jun, [facility] [place] [facility] [address] [id number] [place] [address] Jun, [facility] [place] [facility] [address] [id number] [place] [address] 4685 Jun, [facility] [place] [facility] [address] [id number] [place] [address] 1261 Jun, [facility] [place] [facility] [address] [id number] [place] [address]- 7686 May, [facility] [place] [facility] [address] [id number] [place] [address]- 6763 May, [facility] [place] [facility] [address] [id number], [place] [address] May, [facility] [place] [facility] [address] [id number] [place] [address] May, [facility] [place] [facility] [address] [id number], [place] [address] May, [facility] [place] [facility] [address] [id number], [place] [address] 9364 May, [facility] [place] [facility] [address] [id number], [place] [address] May, [facility] [place] [facility] [address] [id number] [place] [address]- 9337 May, [facility] [place] [facility] [address] [id number], [place] [address] 9[address] Apr, [facility] [place] [facility] [address] [id number] [place] [address]- 8046 Apr, [facility] [place] [facility] [address] [id number] [place] [address] Apr, [facility] [place] [facility] [address] [id number] [place] [address]- 0380 Apr, [facility] [place] [facility] [address] [id number] [place] [address] 8958 Mar, [facility] [place] [facility] [address] [id number] [place] [address]- 1668 Mar, [facility] [place] [facility] [address] [id number] [place] [address]- 8744 Mar, [facility] [place] [facility] [address] [id number] [place] [address]- 2341 Mar, [facility] [place] [facility] [address] [id number] [place] [address]- 5520 Feb, [facility] [place] [facility] [address] [id number] [place] [address]- 6627 Feb, [facility] [place] [facility] [address] [id number] [place] [address]- 8567 Feb, [facility] [place] [facility] [address] [id number] [place] [address]- 4735 Feb, [facility] [place] [facility] [address] [facility] [id number] [place] [address]- 2469 Feb, [facility] [place] [facility] [address] [id number] [place] [address]- 2048 Feb, [facility] [place] [facility] [address] [id number] [place] [address]- 2897 Jan, [facility] [place] [facility] [address] [id number] [place] [address]- 4360 Jan, [facility] [place] [facility] [address] [id number] [place] [address] Jan, [facility] [place] [facility] [address] [id number] [place] [address]- 9445 Jan, [facility] [place] [facility] [address] [id number] [place] [address]- 5403 Dec, [facility] [place] [facility] [address] [id number] [place] [address]- 3658 Dec, [facility] [place] [facility] [address] [id number] [place] [address]- 9372 Dec, [facility] [place] [facility] [address] [id number] [place] [address]- 4416 Dec, [facility] [place] [facility] [address] [id number] [place] [address]- 5257 Dec, [facility] [place] [facility] [address] [id number] [place] [address]- 1149 Dec, [facility] [place] [facility] [address] [id number] [place] [address]- 1319 Oct, [facility] [place] [facility] [address] [id number] [place] [address]- 7159 Oct, [facility] [place] [facility] [address] [id number] [place] [address]- 2437 September, [facility] [place] [facility] [address] [id number] [place] [address]- 8983 September, [facility] [place] [facility] [address] [id number] [place] [address]- 1852 September, [facility] [place] [facility] [address] [id number] [place] [address]- 4979 September, [facility] [place] [facility] [address] [id number] [place] [address]- 6027 September, [facility] [place] [facility] [address] [id number] [place] [address]- 0231 September, [facility] [place] [facility] [address] [id number] [place] [address]- 3465 Aug, [facility] [place] [facility] [address] [id number] [place] [address]- 8697 15 Aug, 2013 [facility] [address] [id number] [place] [address]- 1802 Aug, [facility] [place] [facility] [address] [id number] [place] [address]- 2543 Aug, [facility] [place] [facility] [address] [id number] [place] [address]- 8606 Jul, [facility] [place] [facility] [address] [id number] [place] [address]- 0043 Jul, [facility] [place] [facility] [address] [id number] [place] [address]- 4183 Jun, [facility] [place] [facility] [address] [id number] [place] [address]- 8392 Jun, [facility] [place] [facility] [address] [id number] [place] [address]- 8925 May, [facility] [place] [facility] [address] [id number] [place] [address]- 2023 May, [facility] [place] [facility] [address] [id number] [place] [address]- 2046 Jan, [facility] [place] [facility] [address] [id number] [place] [address]- 8953 Dec, [facility] [place] [facility] [address] [id number] [place] [address]- 4965 Jun, [facility] [place] [facility] [address] [id number] [place] [address]- 7301 May, [facility] [place] [facility] [address] [id number] [place] [address]- 8542 Nov, [facility] [place] [facility] [address] [id number] [place] [address]- 1993 September, [facility] [place] [facility] [address] [id number] [place] [address]- 8036 Aug, [facility] [place] [facility] [address] [id number], [place] [address]- 1466 Aug, [facility] [id number] [address] Aug, [facility] [id number] [address] 4725 Aug, [facility] [id number] [address] 9325 Nov, [facility] [address] [facility] [id number][place] [address]- 7749 Oct, [facility] [id number] [address] Jul, [facility] [id number] [address] 4539 Feb, [facility] [id number] [address]- 5336 Feb, [facility] [id number], [place] [address]- 8844 Apr, [facility] [id number] [address]- 0173 Apr, [facility] [address] [id number], [place] [address]- 6566 Feb, [facility] [address] [id number], [place] [address]- 2857 Feb, [facility] [address] [id number], [place] [address]- 0028 Jul, IMMUNIZATIONS No Known Immunizations SOCIAL HISTORY [...]
--- OUTSIDE RECORDS SUMMARY | 2018-09-15 22:35 | XMS REPORT ---
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 Name Role Phone YVES BLEVINS Unavailable PROBLEMS Type Condition ICD9-CM Code [id number] Code Onset Dates Condition Status SNOMED Code Problem HTN (hypertension) I10 Active 59970308 Problem Restless legs syndrome G25.81 Active 743745993 Problem GERD (gastroesophageal reflux disease) K21.9 Active 563798011 Problem Chronic hepatitis C without hepatic coma B18.2 Active 492125738 Problem ED (erectile dysfunction) N52.9 Active 740705408 Problem PAD (peripheral artery disease) I73.9 Active 560299733 Problem Ulcer of right foot, unspecified ulcer stage L97.519 Active 75803185 Problem 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 555723893 Problem COPD (chronic obstructive pulmonary disease) J44.9 Active 95862405 Problem DM neuro manif type II E11.49 Active 11742463 Problem Sinusitis, unspecified chronicity, unspecified location J32.9 Active 77463264 ALLERGIES No Information ENCOUNTERS Encounter Location Date Diagnosis [facility] [address] [address] Dec, [facility] [id number] [place] [address] 06489- 8471 Dec, [facility] [id number] [address] Dec, Upper respiratory tract infection, unspecified type J06.9 [facility] [address] [address] Dec, [facility] [address] [address] Dec, Acute suppurative otitis media of right ear without spontaneous rupture of tympanic membrane, recurrence not specified H66.001 and Acute nasopharyngitis J00 [facility] [id number] [place] [address] 12549- 0754 Dec, Back pain M54.9 [facility] [id number] [place] [address] 25678- 3805 Dec, Foot infection L08.9 and Type 2 diabetes mellitus with other diabetic neurological complication E11.49 [facility] [address] [address]- [address] Nov, Cellulitis of toe of right foot L03.031 ; Polyneuropathy in diseases classified elsewhere G63 and HTN (hypertension) I10 [facility] [address] [address]- 9387 Nov, [facility] [address] 56[address]- 0741 Nov, [facility] [address] 01959- 3366 Nov, Back pain M54.9 [facility] [address] 95497- 2997 Nov, Shortness of breath R06.02 [facility] [id number] [place] [address] 34298- 8938 Nov, [facility] [id number] [place] [address] 16676- 4231 Oct, [facility] [id number] [place] [address] 16336- 0715 Oct, [facility] [address] 26601- 4545 Oct, [facility] [id number] [place] [address] 76433- 1281 Oct, [facility] [id number] [place] [address] 79136- 0464 Oct, [facility] [address] [place] [address] 81861- 0835 Oct, Back pain M54.9 [facility] [id number] [place] [address] 69424- 2783 Oct, Back pain M54.9 [facility] [id number] [place] [address] 92380- 7052 Oct, [facility] [id number] [place] [address] 13073- 2481 September, [facility] [id number] [place] [address] 45907- 1796 September, [facility] [id number] [place] [address] 70448- 9648 September, [facility] [id number] [place] [address] 15666- 3888 September, Type 2 diabetes mellitus with other diabetic neurological complication E11.49 and Hypotension, unspecified hypotension type I95.9 [facility] [id number] [place] [address] 29467- 1934 September, [facility] [id number] [place] [address] 79207- 1992 September, [facility] [id number] [place] [address] 93213- 4539 September, Back pain M54.9 [facility] [id number] [place] [address] 52911- 9267 Aug, [facility] [id number] [place] [address] 64460- 4731 Aug, Acute cystitis with hematuria N30.01 ; Ulcer of right foot, unspecified ulcer stage L97.519 ; HTN (hypertension) I10 ; COPD (chronic obstructive pulmonary disease) J44.9 and DM neuro manif type II E11.49 [facility] [id number] [place] [address] 18066- 8969 Aug, Back pain M54.9 [facility] [id number] [place] [address] 33644- 5555 Jul, [facility] [id number] [place] [address] 01386- 5027 Jul, Back pain M54.9 [facility] [id number] [place] [address] 82280- 0107 Jul, [facility] [id number] [place] [address] 79585- 4754 Jul, DM neuro manif type II E11.49 and Ulcer of right foot, unspecified ulcer stage L97.519 [facility] [id number] [place] [address] 30161- 7097 Jun, [place] [address] 58601- 2106 Jun, [facility] [id number] [place] [address] 99858- 5625 May, Type 2 diabetes mellitus with other diabetic neurological complication E11.49 ; GERD (gastroesophageal reflux disease) K21.9 and PAD ( peripheral artery disease) I73.9 [place] [id number] [place] [address] 72788- 6878 17 May, 2017 Decubital ulcer L89.90 ; Diabetes E11.9 and GERD ( gastroesophageal reflux disease) K21.9 [facility] [id number] [place] [address] 65865- 1780 May, [facility] [id number] [place] [address] 67911- 5914 Apr, [facility] [id number] [place] [address] 49764- 0564 Mar, [facility] [id number] [place] [address] 91627- 2312 Mar, [facility] [address], [place] [address] 35[address] Feb, [facility] [id number] [place] [address] 21514- 4192 Feb, [facility] [id number] [place] [address] 41234- 5005 Jan, [facility] [id number] [place] [address] 06913- 3243 Jan, HTN (hypertension) I10 [facility] [id number] [place] [address] 80680- 7720 Jan, [facility] [id number] [place] [address] 65780- 4806 Dec, Back pain M54.9 [facility] [id number] [place] [address] 80594- 3769 Dec, Back pain M54.9 [facility] [id number] [place] [address] 65624 -2620 Dec, Encounter for immunization Z23 and Puncture wound of right foot, initial encounter S91.331A [facility] [id number] [place] [address] 24910- 3362 Dec, [facility] [address] [place] [address] 33946- 0106 Nov, [facility] [id number] [place] [address] 10061- 9856 Nov, COPD (chronic obstructive pulmonary disease) J44.9 [facility] [address] [place] [address] 23243- 0142 Nov, [facility] [address] [place] [address] 58778- 3493 Oct, [facility] [address], [place] [address]- 6768 Oct, [facility] [id number] [place] [address] 46901- 9381 September, Onychomycosis B35.1 and DM neuro manif type II E11.49 [facility] [id number] [place] [address] 43482- 0208 September, [facility] [id number] [place] [address] 65431- 3023 Aug, [facility] [id number] [place] [address] 57181- 3204 Jul, Sinusitis, unspecified chronicity, unspecified location J32.9 and Cough R05 [facility] [id number] [place] [address] 72897- 2659 Jul, Back pain M54.9 [facility] [id number] [place] [address] 37619- 2102 14 Jun, 2016 Back pain M54.9 [facility] [id number] [place] [address] 11078- 7119 06 Jun, 2016 COPD (chronic obstructive pulmonary disease) J44.9 [facility] [id number] [place] [address] 14670- 3461 May, [facility] [id number] [place] [address] 55650- 2262 May, [facility] [id number] [place] [address] 92448- 7056 May, Back pain M54.9 [facility] [address] [place] [address] 48104- 2160 May, [facility] [id number] [place] [address] 00158- 0815 May, [facility] [id number] [place] [address] 49618- 4238 May, Diabetes E11.9 [facility] [id number] [place] [address] 78060- 6806 11 May, 2016 Diabetes E11.9 ; GERD [...] Need for hepatitis C screening test Z11.59 [facility] [id number] [place] [address] 22643- 7908 04 May, 2016 HTN (hypertension) I10 [facility] [address] 68543- 5567 29 Apr, 2016 [facility] [id number] [place] [address] 72033- 1829 Apr, [facility] [address] 54953- 0610 Apr, [facility] [id number] [place] [address] 91591- 0939 Apr, [facility] [address] 67699- 4936 Apr, [facility] [id number] [place] [address] 26006- 1667 Mar, [facility] [id number] [place] [address] 98596- 9201 Mar, [facility] [id number] [place] [address] 18642- 3849 Mar, [facility] [address] 21785- 9563 18 Mar, 2016 [facility] [id number] [place] [address] 40267- 7953 02 Mar, 2016 Dental examination Z01.20 [facility] [address] 26892- 9911 Feb, [facility] [address], [place] [address]- 1585 Feb, [facility] [id number] [place] [address] 85004- 0876 Feb, Back pain M54.9 [facility] [id number] [place] [address] 02504- 9926 Jan, [facility] [id number] [place] [address] 32717- 7906 Jan, [facility] [id number] [place] [address] 62373- 1146 Dec, Diabetes E11.9 ; GERD (gastroesophageal reflux disease) K21.9 ; ED (erectile dysfunction) N52.9 ; HTN (hypertension) I10 ; Insomnia G47.00 ; COPD (chronic obstructive pulmonary disease) J44.9 ; Neuropathy G62.9 and Bipolar depression F31.30 [facility] [id number] [place] [address] 28267- 1099 Dec, Type 2 diabetes mellitus with other diabetic neurological complication E11.49 and Onychomycosis B35.1 [facility] [address] [place] [address] 44451- 9178 Dec, [facility] [address], [place] [address]- 4380 Dec, [facility] [id number] [place] [address] 13631- 1778 Dec, [facility] [id number] [place] [address] 21009- 7975 Dec, [facility] [id number] [place] [address] 02790100- 4760 Nov, [facility] [address] [place] [address] [id number]- 9868 Nov, [facility] [id number] [place] [address] 52458- 1339 14 Oct, 2015 [facility] [id number] [place] [address] 63567- 3086 08 Oct, 2015 [facility] [id number] [place] [address] 15604- 9377 07 Oct, 2015 Back pain M54.9 [facility] [id number] [place] [address] 50997- 0375 Oct, [facility] [id number] [place] [address] 26327- 3917 Oct, [facility] [id number] [place] [address] 98563- 4706 Oct, [facility] [id number] [place] [address] 09637- 9677 Oct, HTN (hypertension) I10 [facility] [id number] [place] [address] 47810- 5146 Oct, Back pain M54.9 [facility] [id number] [place] [address] 55302- 8092 Oct, Chronic pain syndrome G89.4 [facility] [id number] [place] [address] 04878- 7854 September, Back pain M54.9 [facility] [id number] [place] [address] 99301- 8292 September, HTN (hypertension) I10 [facility] [id number] [place] [address] 23067- 5428 Aug, Porokeratosis Q82.8 ; Onychomycosis B35.1 and Type 2 diabetes mellitus with other diabetic neurological complication E11.49 [facility] [address] [place] [address] 25846- 9830 Aug, GERD (gastroesophageal reflux disease) K21.9 ; Diabetes E11.9 ; HTN (hypertension) I10 ; Insomnia G47.00 ; Restless legs syndrome G25.81 ; COPD (chronic obstructive pulmonary disease) J44.9 ; Back pain M54.9 and Bipolar 1 disorder F31.9 [facility] [address], [place] [address]- 6460 Aug, [facility] [address], [place] [address]- 2026 Aug, [facility] [id number] [place] [address] 72846- 0319 Aug, [facility] [id number] [place] [address] 97778- 6770 Aug, [facility] [id number] [place] [address] 89791- 1156 Jul, [facility] [address] [place] [address] 93517- 5488 Jul, [facility] [id number] [place] [address] 36203- 7496 Jul, [facility] [address], [place] [address]- 3979 Jul, [facility] [address] [place] [address] 81607- 1454 Jul, [facility] [address], [place] [address]- 0722 Jul, [facility] [address], [place] [address]- 4110 17 Jun, 2015 Decubital ulcer L89.90 ; Diabetes E11.9 ; Back pain M54.9 ; HTN (hypertension) I10 and COPD (chronic obstructive pulmonary disease) J44.9 [facility] [address], [place] [address]- 2417 Jun, [facility] [address], [place] [address]- 0364 Jun, [facility] [address] [address]- 9826 Jun, [facility] [id number] [place] [address] 78725- 7928 Jun, [facility] [id number] [place] [address] 46212- 8454 Jun, Diabetes E11.9 ; Insomnia G47.00 ; Decubital ulcer L89.90 ; GERD (gastroesophageal reflux disease) K21.9 ; Back pain M54.9 ; Superficial fungus infection of skin B36.9 and HTN (hypertension) I10 [address] [id number] [id number] Jun, Dental examination Z01.20 [facility] [place] [address] [place] [address] 20068- 3572 May, [facility] [id number] [place] [address] 12806- 8696 May, [facility] [place] [address] [place] [address] 92030- 6402 May, [facility] [id number] [place] [address] 96272- 8421 May, Diabetes E11.9 ; HTN (hypertension) I10 and Decubital ulcer L89.90 [place] [address] [place] [address] 97478- 0543 May, HTN (hypertension) I10 ; Decubital ulcer L89.90 and Diabetes E11.9 [place] [address] [address]- 5779 Apr, Diabetes E11.9 ; GERD (gastroesophageal reflux disease) K21.9 ; Back pain M54.9 ; HTN (hypertension) I10 ; Restless legs syndrome G25.81 and Decubital ulcer L89.90 [facility] [place] [address] [address]- 5790 Apr, [facility] [id number] [place] [address] 56068- 6847 Apr, Diabetes E11.9 ; HTN (hypertension) I10 ; Restless legs syndrome G25.81 ; GERD (gastroesophageal reflux disease) K21.9 and COPD ( chronic obstructive pulmonary disease) J44.9 [facility] [id number] [place] [address] 72882- 2945 Mar, [facility] [place] [address] 02986- 0571 Mar, [place] [address] 12001- 1749 Mar, Diabetes E11.9 ; Abscess L02.91 and Restless legs syndrome G25.81 [facility] [id number] [place] [address] 94383- 6369 Mar, [facility] [place] [address] 28287- 9757 Feb, GERD (gastroesophageal reflux disease) K21.9 ; Back pain M54.9 ; ED (erectile dysfunction) N52.9 ; Diabetes E11.9 ; HTN (hypertension) I10 and Insomnia G47.00 [facility] [id number] [place] [address] 05071- 0844 Feb, [facility] [id number] [place] [address] 23213- 2244 Feb, [facility] [id number] [place] [address] 06839- 1544 Jan, [facility] [id number] [place] [address] 49586- 5259 Jan, Diabetes 250.00 ; Nondependent cannabis abuse, continuous 305.21 ; Cough 786.2 ; Schizoaffective disorder, unspecified 295.70 ; Sciatica 724.3 ; Other, mixed, or unspecified nondependent drug abuse, unspecified 305.90 ; Chronic pain 338.29 ; GERD (gastroesophageal reflux disease) 530.81 and HTN (hypertension) 401.9 [facility] [address] [address]- 0060 Jan, [facility] [id number] [place] [address] 85843- 1261 Jan, [facility] [address] [address]- 8818 Jan, Chronic pain associated with significant psychosocial dysfunction 338.4 ; Diabetes mellitus without mention of complication, type I [ juvenile type], uncontrolled 250.03 ; Benign essential hypertension 401.1 ; Schizoaffective disorder, unspecified 295.70 ; Wheezing 786.07 ; Ear ache 388.70 ; Cough 786.2 ; Sciatica 724.3 and Foot pain, bilateral 729.5 [facility] [id number] [place] [address] 61354- 1460 Dec, [facility] [id number] [place] [address] 44664- 0756 Dec, [facility] [id number] [place] [address] 25811- 7712 Dec, [facility] [id number] [place] [address] 25816- 3719 Dec, [facility] [id number] [address]- 5743 Dec, [facility] [id number] [place] [address] 83979- 4887 Nov, Elevated liver enzymes 790.5 [facility] [address] [place] [address] 51830- 8058 Nov, [facility] [id number] [place] [address] 61002- 0913 Nov, [facility] [id number] [address]- 2979 Nov, [facility] [id number] [place] [address] 87647- 5895 Nov, Benign essential hypertension 401.1 ; Diabetes mellitus without mention of complication, type I [juvenile type], uncontrolled 250.03 and Nondependent cannabis abuse, continuous 305.21 [facility] [id number] [place] [address]5213- 0773 Oct, Cellulitis 682.9 and Benign essential hypertension 401.1 [facility] [id number] [place] [address] 35095- 8461 Oct, [facility] [id number] [place] [address] [id number]- [phone] September, [facility] [id number] [place] [address] [id number]- [phone] September, [facility] [id number] [place] [address] [id number]- [phone] Aug, [facility] [id number] [place] [address] [id number]- [phone] Aug, [facility] [id number] [place] [address] [id number]- 1468 Aug, [facility] [id number] [place] [address] [id number]- [id number] Aug, [facility] [id number] [place] [address] [id number]- [phone] Jul, [facility] [id number] [place] [address] 82082- 9245 Jul, [facility] [id number] [place] [address] 42869- 0459 Jul, [facility] [id number] [place] [address] [id number]- 6066 Jul, [facility] [id number] [place] [address] 26877- 2626 Jul, [facility] [id number] [place] [address] [id number]- [phone] Jul, [facility] [place] [facility] [address] [id number] [place] [address] Jun, [facility] [place] [facility] [address] [id number] [place] [address] Jun, [facility] [place] [facility] [address] [id number] [place] [address] Jun, [facility] [place] [facility] [address] [id number] [place] [address] Jun, [facility] [place] [facility] [address] [id number] [place] [address] Jun, [facility] [place] [facility] [address] [id number] [place] [address] May, [facility] [place] [facility] [address] [id number] [place] [address] May, [facility] [place] [facility] [address] [id number], [place] [address] May, [facility] [place] [facility] [address] [id number] [place] [address] May, [facility] [place] [facility] [address] [id number], [place] [address] May, [facility] [place] [facility] [address] [id number], [place] [address] May, [facility] [place] [facility] [address] [id number], [place] [address] May, [facility] [place] [facility] [address] [id number] [place] [address] May, [facility] [place] [facility] [address] [id number], [place] [address] Apr, [facility] [place] [facility] [address] [id number] [place] [address] Apr, [facility] [place] [facility] [address] [id number] [place] [address] Apr, [facility] [place] [facility] [address] [id number] [place] [address] Apr, [facility] [place] [facility] [address] [id number] [place] [address] Mar, [facility] [place] [facility] [address] [id number] [place] [address] Mar, [facility] [place] [facility] [address] [id number] [place] [address] Mar, [facility] [place] [facility] [address] [id number] [place] [address] 2016 Mar, [facility] [place] [facility] [address] [id number] [place] [address] Feb, [facility] [place] [facility] [address] [id number] [place] [address] Feb, [facility] [place] [facility] [address] [id number] [place] [address]- 8698 Feb, [facility] [place] [facility] [address] [id number] [place] [address] 14[address] Feb, [facility] [place] [facility] [address] [facility] [id number] [place] [address] Feb, [facility] [place] [facility] [address] [id number] [place] [address] 58[address] Feb, [facility] [place] [facility] [address] [id number] [place] [address] 8024 Jan, [facility] [place] [facility] [address] [id number] [place] [address]- 65[address] Jan, [facility] [place] [facility] [address] [id number] [place] [address] Jan, [facility] [place] [facility] [address] [id number] [place] [address] Jan, [facility] [place] [facility] [address] [id number] [place] [address]- 2867 Dec, [facility] [place] [facility] [address] [id number] [place] [address]- [address] Dec, [facility] [place] [facility] [address] [id number] [place] [address]- 8624 Dec, [facility] [place] [facility] [address] [id number] [place] [address]- 99[address] Dec, [facility] [place] [facility] [address] [id number] [place] [address] Dec, [facility] [place] [facility] [address] [id number] [place] [address] Dec, [facility] [place] [facility] [address] [id number] [place] [address] 97[address] Oct, [facility] [place] [facility] [address] [id number] [place] [address] Oct, [facility] [place] [facility] [address] [id number] [place] [address] 1567 September, [facility] [place] [facility] [address] [id number] [place] [address]- [address] September, [facility] [place] [facility] [address] [id number] [place] [address]- 64[address] September, [facility] [place] [facility] [address] [id number] [place] [address] 8515 September, [facility] [place] [facility] [address] [id number] [place] [address]- 89[address] September, [facility] [place] [facility] [address] [id number] [place] [address] September, [facility] [place] [facility] [address] [id number] [place] [address] Aug, [facility] [place] [facility] [address] [id number] [place] [address]- [address] 15 Aug, 2013 [facility] [address] [id number] [place] [address]- [address] Aug, [facility] [place] [facility] [address] [id number] [place] [address]- [address] Aug, [facility] [place] [facility] [address] [id number] [place] [address]- 7[address] Jul, [facility] [place] [facility] [address] [id number] [place] [address]- [address]245 Jul, [facility] [place] [facility] [address] [id number] [place] [address]- 59[address] Jun, [facility] [place] [facility] [address] [id number] [place] [address]- 17[address] Jun, [facility] [place] [facility] [address] [id number] [place] [address]- [address] May, [facility] [place] [facility] [address] [id number] [place] [address]- 6677 May, [facility] [place] [facility] [address] [id number] [place] [address]- [address] Jan, [facility] [place] [facility] [address] [id number] [place] [address]- 8362 Dec, [facility] [place] [facility] [address] [id number] [place] [address]- 87[address] Jun, [facility] [place] [facility] [address] [id number] [place] [address]- 6988 May, [facility] [place] [facility] [address] [id number] [place] [address]- 8471 Nov, [facility] [place] [facility] [address] [id number] [place] [address] 1669 September, [facility] [place] [facility] [address] [id number] [place] [address]- 5033 Aug, [facility] [place] [facility] [address] [id number], [place] [address] Aug, [facility] [id number] [address] Aug, [facility] [id number], [place] [address] Aug, [facility] [id number], [place] [address] Nov, [facility] [address] [facility] [id number], [place] [address]94 Oct, [facility] [id number], [place] [address] Jul, [facility] [id number], [place] [address] Feb, [facility] [id number], [place] [address] Feb, [facility] [id number], [place] [address] Apr, [facility] [id number], [place] [address] Apr, [facility] [address] [id number], [place] [address] Feb, [facility] [address] [id number], [place] [address] Feb, [facility] [address] [id number], [place] [address] Jul, IMMUNIZATIONS No Known Immunizations SOCIAL HISTORY Never Assessed REASON FOR VISIT FY PLAN OF CARE VITAL SIGNS MEDICATIONS Unknown [...]
--- OUTSIDE RECORDS SUMMARY | 2018-09-15 22:35 | XMS REPORT ---
Author Author YVES BLEVINS Organization [facility] Address [address] [place] [address] Care Team Providers Care [employer] Operator Name Role Phone YVES BLEVINS Unavailable PROBLEMS Type Condition ICD9-CM Code IVB97-HD Code Onset Dates Condition Status SNOMED Code Problem HTN (hypertension) I10 Active 60817570 Problem Restless legs syndrome G25.81 Active 074955740 Problem GERD (gastroesophageal reflux disease) K21.9 Active 040257426 Problem Chronic hepatitis C without hepatic coma B18.2 Active 916348580 Problem ED (erectile dysfunction) N52.9 Active 459752435 Problem PAD (peripheral artery disease) I73.9 Active 723068027 Problem Ulcer of right foot, unspecified ulcer stage L97.519 Active 24741744 Problem 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 382077993 Problem COPD (chronic obstructive pulmonary disease) J44.9 Active 26669720 Problem DM neuro manif type II E11.49 Active 88909437 Problem Sinusitis, unspecified chronicity, unspecified location J32.9 Active 20348251 ALLERGIES No Information ENCOUNTERS Encounter Location Date Diagnosis [facility] [address] [address] Dec, [facility] [id number] [place] [address] 96348- 7521 Dec, [facility] [id number] [address] Dec, Upper respiratory tract infection, unspecified type J06.9 [facility] [address] [address] Dec, [facility] [address] [address] Dec, Acute suppurative otitis media of right ear without spontaneous rupture of tympanic membrane, recurrence not specified H66.001 and Acute nasopharyngitis J00 [facility] [id number] [place] [address] 16945- 1318 Dec, Back pain M54.9 [facility] [id number] [place] [address] 49002- 8760 Dec, Foot infection L08.9 and Type 2 diabetes mellitus with other diabetic neurological complication E11.49 [facility] [address] [address]69- 0497 Nov, Cellulitis of toe of right foot L03.031 ; Polyneuropathy in diseases classified elsewhere G63 and HTN (hypertension) I10 [facility] [address] 5[address]99- 4432 Nov, [facility] [address] 49677- 2829 Nov, [facility] [address] 96140- 1509 Nov, Back pain M54.9 [facility] [address] 09582- 4916 Nov, Shortness of breath R06.02 [facility] [id number] [place] [address] 80004- 6218 Nov, [facility] [id number] [place] [address] 30280- 9526 Oct, [facility] [id number] [place] [address] 93435- 3679 Oct, [facility] [address] 76677- 2604 Oct, [facility] [id number] [place] [address] 18935- 9544 Oct, [facility] [id number] [place] [address] 07050- 7664 Oct, [facility] [address] [place] [address] 48602- 5710 Oct, Back pain M54.9 [facility] [id number] [place] [address] 68991- 7775 Oct, Back pain M54.9 [facility] [id number] [place] [address] 71079- 2351 Oct, [facility] [id number] [place] [address] 13084- 2783 September, [facility] [id number] [place] [address] 20833- 3028 September, [facility] [id number] [place] [address] 02526- 9005 September, [facility] [id number] [place] [address] 81603- 7605 September, Type 2 diabetes mellitus with other diabetic neurological complication E11.49 and Hypotension, unspecified hypotension type I95.9 [facility] [id number] [place] [address] 33784- 9278 September, [facility] [id number] [place] [address] 41300- 6516 September, [facility] [id number] [place] [address] 82429- 4932 September, Back pain M54.9 [facility] [address] [place] [address] 76015- 1382 Aug, [facility] [id number] [place] [address] 95461- 7205 Aug, Acute cystitis with hematuria N30.01 ; Ulcer of right foot, unspecified ulcer stage L97.519 ; HTN (hypertension) I10 ; COPD (chronic obstructive pulmonary disease) J44.9 and DM neuro manif type II E11.49 [facility] [id number] [place] [address] 39389- 8095 Aug, Back pain M54.9 [facility] [id number] [place] [address] 87467- 4130 Jul, [facility] [id number] [place] [address] 53361- 3727 Jul, Back pain M54.9 [facility] [id number] [place] [address] 75316- 5139 Jul, [facility] [id number] [place] [address] 56495- 0760 Jul, DM neuro manif type II E11.49 and Ulcer of right foot, unspecified ulcer stage L97.519 [facility] [id number] [place] [address] 33724- 9131 Jun, [place] [address] 50276- 8952 Jun, [facility] [id number] [place] [address] 24543- 2411 May, Type 2 diabetes mellitus with other diabetic neurological complication E11.49 ; GERD (gastroesophageal reflux disease) K21.9 and PAD ( peripheral artery disease) I73.9 [place] [id number] [place] [address] 09555- 9134 17 May, 2017 Decubital ulcer L89.90 ; Diabetes E11.9 and GERD ( gastroesophageal reflux disease) K21.9 [facility] [id number] [place] [address] 87824- 4042 May, [facility] [id number] [place] [address] 11992- 2960 Apr, [facility] [id number] [place] [address] 50260- 0740 Mar, [facility] [id number] [place] [address] 82161- 1212 Mar, [facility] [address] [address]- 3529 Feb, [facility] [id number] [place] [address] 46271- 2315 Feb, [facility] [id number] [place] [address] 82589- 4850 Jan, [facility] [id number] [place] [address] 71334- 4418 Jan, HTN (hypertension) I10 [facility] [id number] [place] [address] 06477- 6716 Jan, [facility] [id number] [place] [address] 71429- 4540 Dec, Back pain M54.9 [facility] [id number] [place] [address] 71108- 4445 Dec, Back pain M54.9 [facility] [id number] [place] [address] 85732 -1414 Dec, Encounter for immunization Z23 and Puncture wound of right foot, initial encounter S91.331A [facility] [id number] [place] [address] 68511- 2479 Dec, [facility] [address] [place] [address] 87319- 2437 Nov, [facility] [id number] [place] [address] 42801- 0009 Nov, COPD (chronic obstructive pulmonary disease) J44.9 [facility] [address] [place] [address] 50918- 5953 Nov, [facility] [address] [place] [address] 50591- 6344 Oct, [facility] [address] [address]- 8563 Oct, [facility] [id number] [place] [address] 92103- 0314 September, Onychomycosis B35.1 and DM neuro manif type II E11.49 [facility] [id number] [place] [address] 88519- 1661 September, [facility] [id number] [place] [address] 22607- 8453 Aug, [facility] [id number] [place] [address] 26665- 8100 Jul, Sinusitis, unspecified chronicity, unspecified location J32.9 and Cough R05 [facility] [id number] [place] [address] 71985- 3327 Jul, Back pain M54.9 [facility] [id number] [place] [address] 65671- 9907 14 Jun, 2016 Back pain M54.9 [facility] [id number] [place] [address] 44395- 3574 06 Jun, 2016 COPD (chronic obstructive pulmonary disease) J44.9 [facility] [id number] [place] [address] 07069- 9704 May, [facility] [id number] [place] [address] 09374- 0410 May, [facility] [id number] [place] [address] 91354- 6850 May, Back pain M54.9 [facility] [address] [place] [address] 84011- 9320 May, [facility] [id number] [place] [address] 34896- 4594 May, [facility] [id number] [place] [address] 58307- 7177 May, Diabetes E11.9 [facility] [id number] [place] [address] 46671- 5238 11 May, 2016 Diabetes E11.9 ; GERD [...] test Z11.59 [facility] [id number] [place] [address] 43642- 6741 04 May, 2016 HTN (hypertension) I10 [facility] [address] 73471- 6954 29 Apr, 2016 [facility] [id number] [place] [address] 29521- 2460 Apr, [facility] [address] 51452- 5714 Apr, [facility] [id number] [place] [address] 93793- 5357 Apr, [facility] [address] 21967- 6777 Apr, [facility] [id number] [place] [address] 61723- 4978 Mar, [facility] [id number] [place] [address] 91266- 8653 Mar, [facility] [id number] [place] [address] 38595- 8716 Mar, [facility] [address] 19154- 4516 18 Mar, 2016 [facility] [id number] [place] [address] 57470- 9981 02 Mar, 2016 Dental examination Z01.20 [facility] [address] 64287- 1810 Feb, [facility] [address] [address]- 0117 Feb, [facility] [id number] [place] [address] 50820- 6146 Feb, Back pain M54.9 [facility] [id number] [place] [address] 47380- 5485 Jan, [facility] [id number] [place] [address] 32858- 1822 Jan, [facility] [id number] [place] [address] 21945- 0059 Dec, Diabetes E11.9 ; GERD (gastroesophageal reflux disease) K21.9 ; ED (erectile dysfunction) N52.9 ; HTN (hypertension) I10 ; Insomnia G47.00 ; COPD (chronic obstructive pulmonary disease) J44.9 ; Neuropathy G62.9 and Bipolar depression F31.30 [facility] [id number] [place] [address] 04073- 6409 Dec, Type 2 diabetes mellitus with other diabetic neurological complication E11.49 and Onychomycosis B35.1 [facility] [address] [place] [address] 64134- 2517 Dec, [facility] [address] [address]- 3500 Dec, [facility] [id number] [place] [address] 05468- 5077 Dec, [facility] [id number] [place] [address] 52647- 6984 Dec, [facility] [id number] [place] [address] 56937302- 6387 Nov, [facility] [address] [place] [address] 75013778- 4096 Nov, [facility] [id number] [place] [address] 47255- 0536 14 Oct, 2015 [facility] [id number] [place] [address] 41229- 0882 08 Oct, 2015 [facility] [id number] [place] [address] 09842- 6527 07 Oct, 2015 Back pain M54.9 [facility] [id number] [place] [address] 54180- 6952 Oct, [facility] [id number] [place] [address] 99396- 1744 Oct, [facility] [id number] [place] [address] 03753- 8141 Oct, [facility] [id number] [place] [address] 08009- 3750 Oct, HTN (hypertension) I10 [facility] [id number] [place] [address] 69502- 8719 Oct, Back pain M54.9 [facility] [id number] [place] [address] 57909- 3604 Oct, Chronic pain syndrome G89.4 [facility] [id number] [place] [address] 82245- 6632 September, Back pain M54.9 [facility] [id number] [place] [address] 75128- 5847 September, HTN (hypertension) I10 [facility] [id number] [place] [address] 89641- 3956 Aug, Porokeratosis Q82.8 ; Onychomycosis B35.1 and Type 2 diabetes mellitus with other diabetic neurological complication E11.49 [facility] [address] [place] [address] 36488- 8023 Aug, GERD (gastroesophageal reflux disease) K21.9 ; Diabetes E11.9 ; HTN (hypertension) I10 ; Insomnia G47.00 ; Restless legs syndrome G25.81 ; COPD (chronic obstructive pulmonary disease) J44.9 ; Back pain M54.9 and Bipolar 1 disorder F31.9 [facility] [address] [address]- 4966 Aug, [facility] [address] [address]- 0892 Aug, [facility] [id number] [place] [address] 32424- 8685 Aug, [facility] [id number] [place] [address] 19099- 0599 Aug, [facility] [id number] [place] [address] 98915- 3411 Jul, [facility] [address] [place] [address] 98779- 3659 Jul, [facility] [id number] [place] [address] 71488- 6792 Jul, [facility] [address] [address]- 2864 Jul, [facility] [address] [place] [address] 93750- 8070 Jul, [facility] [address] [address]- 1478 Jul, [facility] [address] [address]- 1707 17 Jun, 2015 Decubital ulcer L89.90 ; Diabetes E11.9 ; Back pain M54.9 ; HTN (hypertension) I10 and COPD (chronic obstructive pulmonary disease) J44.9 [facility] [address] [address]- 0249 Jun, [facility] [address] [address]- 8238 Jun, [facility] [address] [address]- 5818 Jun, [place] [id number] [place] [address] 78486- 0734 Jun, [place] [id number] [place] [address] 92187- 3135 Jun, Diabetes E11.9 ; Insomnia G47.00 ; Decubital ulcer L89.90 ; GERD (gastroesophageal reflux disease) K21.9 ; Back pain M54.9 ; Superficial fungus infection of skin B36.9 and HTN (hypertension) I10 [address] [id number] [address] Jun, Dental examination Z01.20 [facility] [address] [place] [address] 80328- 4111 May, [place] [id number] [place] [address] 57401- 5265 May, [place] [address] [place] [address] 56621- 2628 May, [facility] [id number] [place] [address] 48781- 4689 May, Diabetes E11.9 ; HTN (hypertension) I10 and Decubital ulcer L89.90 [facility] [address] [place] [address] 56864- 9223 May, HTN (hypertension) I10 ; Decubital ulcer L89.90 and Diabetes E11.9 [facility] [address] [address]- 4822 Apr, Diabetes E11.9 ; GERD (gastroesophageal reflux disease) K21.9 ; Back pain M54.9 ; HTN (hypertension) I10 ; Restless legs syndrome G25.81 and Decubital ulcer L89.90 [facility] [address] [address]- 1491 Apr, [facility] [id number] [place] [address] 77152- 0030 Apr, Diabetes E11.9 ; HTN (hypertension) I10 ; Restless legs syndrome G25.81 ; GERD (gastroesophageal reflux disease) K21.9 and COPD ( chronic obstructive pulmonary disease) J44.9 [facility] [id number] [place] [address] 98720- 6164 Mar, [facility] [address] 80970- 1026 Mar, [place] [address] 91542- 7832 Mar, Diabetes E11.9 ; Abscess L02.91 and Restless legs syndrome G25.81 [facility] [id number] [place] [address] 92485- 8845 Mar, [facility] [address] 34246- 5132 Feb, GERD (gastroesophageal reflux disease) K21.9 ; Back pain M54.9 ; ED (erectile dysfunction) N52.9 ; Diabetes E11.9 ; HTN (hypertension) I10 and Insomnia G47.00 [facility] [id number] [place] [address] 38207- 5209 Feb, [facility] [id number] [place] [address] 52459- 1138 Feb, [facility] [id number] [place] [address] 24762- 2042 Jan, [facility] [id number] [place] [address] 01783- 2648 Jan, Diabetes 250.00 ; Nondependent cannabis abuse, continuous 305.21 ; Cough 786.2 ; Schizoaffective disorder, unspecified 295.70 ; Sciatica 724.3 ; Other, mixed, or unspecified nondependent drug abuse, unspecified 305.90 ; Chronic pain 338.29 ; GERD (gastroesophageal reflux disease) 530.81 and HTN (hypertension) 401.9 [facility] [address] [address]- 3898 Jan, [facility] [id number] [place] [address] 72022- 3511 Jan, [facility] [address] [address]- 5836 Jan, Chronic pain associated with significant psychosocial dysfunction 338.4 ; Diabetes mellitus without mention of complication, type I [ juvenile type], uncontrolled 250.03 ; Benign essential hypertension 401.1 ; Schizoaffective disorder, unspecified 295.70 ; Wheezing 786.07 ; Ear ache 388.70 ; Cough 786.2 ; Sciatica 724.3 and Foot pain, bilateral 729.5 [facility] [id number] [place] [address] 36430- 9722 Dec, [facility] [id number] [place] [address] 82976- 7698 Dec, [facility] [id number] [place] [address] 06219- 2471 Dec, [facility] [id number] [place] [address] 60317- 4877 Dec, [facility] [address] [address]- 4391 Dec, [facility] [id number] [place] [address] 86053- 1431 Nov, Elevated liver enzymes 790.5 [facility] [address] [place] [address] 29313- 5239 Nov, [facility] [id number] [place] [address] 22717- 4192 Nov, [facility] [address] [address]- 1779 Nov, [facility] [id number] [place] [address] 33189- 7660 Nov, Benign essential hypertension 401.1 ; Diabetes mellitus without mention of complication, type I [juvenile type], uncontrolled 250.03 and Nondependent cannabis abuse, continuous 305.21 [facility] [id number] [place] [address] 49731- 4910 Oct, Cellulitis 682.9 and Benign essential hypertension 401.1 [facility] [id number] [place] [address] 10992- 5513 Oct, [facility] [id number] [place] [address] 69560- 8484 September, [facility] [id number] [place] [address] 91238- 6908 September, [facility] [id number] [place] [address] 22440- 0577 Aug, [facility] [id number] [place] [address] 96543- 1072 Aug, [facility] [id number] [place] [address] 37501- 5699 Aug, [facility] [id number] [place] [address] 02299- 6202 Aug, [facility] [id number] [place] [address] 84577- 5420 Jul, [facility] [id number] [place] [address] 98657- 6737 Jul, [facility] [id number] [place] [address] 79007- 7586 Jul, [facility] [id number] [place] [address] 54065- 0314 Jul, [facility] [id number] [place] [address] 52227- 6732 Jul, [facility] [id number] [place] [address] 11255- 3268 Jul, [facility] [place] [facility] [address] [id number] [place] [address] 1839 Jun, [facility] [place] [facility] [address] [id number] [place] [address]- 0147 Jun, [facility] [place] [facility] [address] [id number] [place] [address]- 8918 Jun, [facility] [place] [facility] [address] [id number] [place] [address]- 2063 Jun, [facility] [place] [facility] [address] [id number] [place] [address]- 6228 Jun, [facility] [place] [facility] [address] [id number] [place] [address]- 5417 May, [facility] [place] [facility] [address] [id number] [place] [address] 1933 May, [facility] [place] [facility] [address] [id number] [address] 1192 May, [facility] [place] [facility] [address] [id number] [place] [address]- 3725 May, [facility] [place] [facility] [address] [id number] [address] 0888 May, [facility] [place] [facility] [address] [id number] [address] 7779 May, [facility] [place] [facility] [address] [id number] [address] 9173 May, [facility] [place] [facility] [address] [id number] [place] [address]- 7771 May, [facility] [place] [facility] [address] [id number] [address]- 6628 Apr, [facility] [place] [facility] [address] [id number] [place] [address]- 3739 Apr, [facility] [place] [facility] [address] [id number] [place] [address] Apr, [facility] [place] [facility] [address] [id number] [place] [address]- 4292 Apr, [facility] [place] [facility] [address] [id number] [place] [address] 1929 Mar, [facility] [place] [facility] [address] [id number] [place] [address]- 5045 Mar, [facility] [place] [facility] [address] [id number] [place] [address]- 1003 Mar, [facility] [place] [facility] [address] [id number] [place] [address]- 5723 Mar, [facility] [place] [facility] [address] [id number] [place] [address]- 2095 Feb, [facility] [place] [facility] [address] [id number] [place] [address] Feb, [facility] [place] [facility] [address] [id number] [place] [address] Feb, [facility] [place] [facility] [address] [id number] [place] [address] Feb, [facility] [place] [facility] [address] [facility] [id number] [place] [address] Feb, [facility] [place] [facility] [address] [id number] [place] [address] Feb, [facility] [place] [facility] [address] [id number] [place] [address] Jan, [facility] [place] [facility] [address] [id number] [place] [address] Jan, [facility] [place] [facility] [address] [id number] [place] [address] Jan, [facility] [place] [facility] [address] [id number] [place] [address] Jan, [facility] [place] [facility] [address] [id number] [place] [address] Dec, [facility] [place] [facility] [address] [id number] [place] [address] Dec, [facility] [place] [facility] [address] [id number] [place] [address] Dec, [facility] [place] [facility] [address] [id number] [place] [address] Dec, [facility] [place] [facility] [address] [id number] [place] [address] Dec, [facility] [place] [facility] [address] [id number] [place] [address] Dec, [facility] [place] [facility] [address] [id number] [place] [address] Oct, [facility] [place] [facility] [address] [id number] [place] [address] Oct, [facility] [place] [facility] [address] [id number] [place] [address] September, [facility] [place] [facility] [address] [id number] [place] [address] September, [facility] [place] [facility] [address] [id number] [place] [address] September, [facility] [place] [facility] [address] [id number] [place] [address] September, [facility] [place] [facility] [address] [id number] [place] [address] September, [facility] [place] [facility] [address] [id number] [place] [address] September, [facility] [place] [facility] [address] [id number] [place] [address] Aug, [facility] [place] [facility] [address] [id number] [place] [address]- [address] 15 Aug, 2013 [facility] [address] [id number] [place] [address] Aug, [facility] [place] [facility] [address] [id number] [place] [address] Aug, [facility] [place] [facility] [address] [id number] [place] [address] Jul, [facility] [place] [facility] [address] [id number] [place] [address] Jul, [facility] [place] [facility] [address] [id number] [place] [address] Jun, [facility] [place] [facility] [address] [id number] [place] [address] Jun, [facility] [place] [facility] [address] [id number] [place] [address] May, [facility] [place] [facility] [address] [id number] [place] [address] May, [facility] [place] [facility] [address] [id number] [place] [address] Jan, [facility] [place] [facility] [address] [id number] [place] [address] Dec, [facility] [place] [facility] [address] [id number] [place] [address] Jun, [facility] [place] [facility] [address] [id number] [place] [address] May, [facility] [place] [facility] [address] [id number] [place] [address] Nov, [facility] [place] [facility] [address] [id number] [place] [address] September, [facility] [place] [facility] [address] [id number] [place] [address] Aug, [facility] [place] [facility] [address] [id number] [address] Aug, [facility] [id number] [address] Aug, [facility] [id number] [address] [address] Aug, [facility] [id number] [address] Nov, [facility] [id number] [address] Oct, [facility] [id number] [address] Jul, [facility] [id number] [address] Feb, [facility] [id number] [address] Feb, [facility] [id number] [address] Apr, [facility] [id number] [address] [address] Apr, [facility] [address] [id number] [address] Feb, [facility] [address] [id number] [address] Feb, [facility] [address] [id number] [address] Jul, IMMUNIZATIONS No Known Immunizations SOCIAL HISTORY Never Assessed REASON FOR VISIT lisinopril note PLAN OF CARE VITAL SIGNS MEDICATIONS Medication Instructions Dosage Frequency Start Date End Date Duration Status Lisinopril 20 mg Orally Once a day 1 tablet 24h Oct, 30 day(s) Active RESULTS No Results PROCEDURES No Known [...]
--- OUTSIDE RECORDS SUMMARY | 2018-09-15 22:36 | XMS REPORT ---
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 Name Role Phone YVES BLEVINS Unavailable PROBLEMS Type Condition ICD9-CM Code PBY30-PR Code Onset Dates Condition Status SNOMED Code Problem HTN (hypertension) I10 Active 90269604 Problem Restless legs syndrome G25.81 Active 076436409 Problem GERD (gastroesophageal reflux disease) K21.9 Active 143173730 Problem Chronic hepatitis C without hepatic coma B18.2 Active 710761215 Problem ED (erectile dysfunction) N52.9 Active 208245828 Problem PAD (peripheral artery disease) I73.9 Active 914375145 Problem Ulcer of right foot, unspecified ulcer stage L97.519 Active 41151881 Problem 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 189528191 Problem COPD (chronic obstructive pulmonary disease) J44.9 Active 02340785 Problem DM neuro manif type II E11.49 Active 22392300 Problem Sinusitis, unspecified chronicity, unspecified location J32.9 Active 60101229 ALLERGIES No Information ENCOUNTERS Encounter Location Date Diagnosis [facility] [id number] [place] [address] 89349 -8597 Dec, Acute suppurative otitis media of right ear without spontaneous rupture of tympanic membrane, recurrence not specified H66.001 and Acute nasopharyngitis J00 [facility] [address], [place] [address] 9281 Dec, Back pain M54.9 [facility] [id number] [place] [address] 33844- 2995 Dec, Foot infection L08.9 and Type 2 diabetes mellitus with other diabetic neurological complication E11.49 [facility] [address] [place] [address] 79771- 0488 Nov, Cellulitis of toe of right foot L03.031 ; Polyneuropathy in diseases classified elsewhere G63 and HTN (hypertension) I10 [facility] [id number] [place] [address], [place] [address]- 1073 Nov, [facility] [id number] [place] [address] 25580- 6947 Nov, [facility] [id number] [place] [address] 57743- 7529 Nov, Back pain M54.9 [facility] [id number] [place] [address] 92463- 8048 Nov, Shortness of breath R06.02 [facility] [id number] [place] [address] 11517- 7060 Nov, [facility] [id number] [place] [address] 71258- 1869 Oct, [facility] [id number] [place] [address] 96903- 2001 Oct, [facility] [id number] [place] [address] 69225- 4059 Oct, [facility] [id number] [place] [address] 82931- 3057 Oct, [facility] [id number] [place] [address] 08375- 3320 Oct, [facility] [id number] [place] [address] 50127- 4790 Oct, Back pain M54.9 [facility] [id number] [place] [address] 17554- 3437 Oct, Back pain M54.9 [facility] [id number] [place] [address] 48913- 0620 Oct, [facility] [id number] [place] [address] 75923- 4733 September, [facility] [address], [place] [address]- 9375 September, [facility] [id number] [place] [address] 45473- 3905 September, [facility] [id number] [place] [address] 49253- 9731 September, Type 2 diabetes mellitus with other diabetic neurological complication E11.49 and Hypotension, unspecified hypotension type I95.9 [facility] [id number] [place] [address] 19962- 4888 September, [facility] [id number] [place] [address] 59340- 9210 September, [facility] [id number] [place] [address] 45352- 0151 September, Back pain M54.9 [facility] [id number] [place] [address] 50201- 0086 Aug, [facility] [id number] [place] [address] 06909- 1934 Aug, Acute cystitis with hematuria N30.01 ; Ulcer of right foot, unspecified ulcer stage L97.519 ; HTN (hypertension) I10 ; COPD (chronic obstructive pulmonary disease) J44.9 and DM neuro manif type II E11.49 [facility] [id number] [place] [address] 21856- 3378 Aug, Back pain M54.9 [facility] [id number] [address]- 5325 Jul, [facility] [id number] [place] [address] 68647- 1570 Jul, Back pain M54.9 [facility] [id number] [place] [address] 99140- 4815 Jul, [facility] [id number] [place] [address] 61619- 9487 Jul, DM neuro manif type II E11.49 and Ulcer of right foot, unspecified ulcer stage L97.519 [facility] [id number] [place] [address] 81086- 8993 Jun, [facility] [id number] [place] [address] 73115- 2142 Jun, [facility] [address] 24542- 7557 May, Type 2 diabetes mellitus with other diabetic neurological complication E11.49 ; GERD (gastroesophageal reflux disease) K21.9 and PAD ( peripheral artery disease) I73.9 [facility] [place] [id number] [place] [address] 04881- 1253 May, Decubital ulcer L89.90 ; Diabetes E11.9 and GERD ( gastroesophageal reflux disease) K21.9 [facility] [id number] [place] [address] 44547- 5706 May, [facility] [id number] [place] [address] 91118- 2119 Apr, [facility] [id number] [place] [address] 28799- 6939 Mar, [facility] [id number] [place] [address] 04744- 4838 Mar, [facility] [id number] [place] [address] 75822- 9445 Feb, [facility] [id number] [place] [address] 88871- 3452 Feb, [facility] [id number] [place] [address] 40085- 3987 Jan, [facility] [id number] [place] [address] 95624- 8135 Jan, HTN (hypertension) I10 [facility] [address] [place] [address]- 0062 Jan, [facility] [id number] [place] [address] 63450- 5071 Dec, Back pain M54.9 [facility] [id number] [place] [address] 16465- 5818 Dec, Back pain M54.9 [facility] [id number] [place] [address] 77323 -6500 Dec, Encounter for immunization Z23 and Puncture wound of right foot, initial encounter S91.331A [facility] [id number] [place] [address] 27862- 9536 Dec, [facility] [id number] [place] [address] 10868- 3630 Nov, [facility] [id number] [place] [address] 68002- 7542 Nov, COPD (chronic obstructive pulmonary disease) J44.9 [facility] [id number] [place] [address] 86630- 5213 Nov, [facility] [id number] [place] [address] 61207- 8731 Oct, [facility] [id number] [place] [address] 53596- 7598 Oct, [facility] [id number] [place] [address] 20896- 9251 September, Onychomycosis B35.1 and DM neuro manif type II E11.49 [facility] [id number] [place] [address] 64078- 1809 September, [facility] [id number] [place] [address] 35650- 7601 Aug, [facility] [id number] [place] [address] 94000- 3868 Jul, Sinusitis, unspecified chronicity, unspecified location J32.9 and Cough R05 [facility] [id number] [place] [address] 41706- 0646 13 Jul, 2016 Back pain M54.9 [facility] [id number] [place] [address] 96331- 8927 14 Jun, 2016 Back pain M54.9 [facility] [id number] [place] [address] 44714- 2691 06 Jun, 2016 COPD (chronic obstructive pulmonary disease) J44.9 [facility] [id number] [place] [address] 76581- 3924 17 May, 2016 [facility] [id number] [place] [address] 86035- 9693 17 May, 2016 [facility] [id number] [place] [address] 62490- 2679 May, Back pain M54.9 [facility] [id number] [place] [address] 96251- 2937 16 May, 2016 [facility] [id number] [place] [address] 50518- 2612 May, [facility] [id number] [place] [address] 26055- 4268 12 May, 2016 Diabetes E11.9 [facility] [id number] [place] [address] 97283- 3148 11 May, 2016 Diabetes E11.9 ; GERD [...] Need for hepatitis C screening test Z11.59 [facility] [id number] [place] [address] 67237- 6296 May, HTN (hypertension) I10 [facility] [address] [id number] [place] [address]- 9290 Apr, [facility] [address] [id number] [place] [address]- 5695 Apr, [facility] [address] [id number] [place] [address]- 9137 Apr, [facility] [id number] [place] [address], [place] [address]- 4783 Apr, [facility] [address] [id number] [place] [address], [place] [address]- 2447 Apr, [facility] [address] [facility] [place] [place] [id number] [place] [address], [place] [address]- 4462 Mar, [facility] [id number] [place] [address], [place] [address]- 7545 Mar, [facility] [address] [facility] [place] [place] [id number] [place] [address]- 3570 Mar, [facility] [address] [facility] [place] [id number] [place] [address] 49995- 4229 Mar, [facility] [id number], [place] [address]- 0704 Mar, Dental examination Z01.20 [facility] [id number], [place] [address]- 7533 Feb, [facility] [address] [facility] [place] [place] [id number] [address]- 4155 Feb, [facility] [address] [facility] [place] [id number], [place] [address]- 0658 Feb, Back pain M54.9 [facility] [address] [facility] [place] [id number] [address]- 5915 Jan, [facility] [address], [place] [address]- 8630 Jan, [facility] [address], [place] [address]- 6771 Dec, Diabetes E11.9 ; GERD (gastroesophageal reflux disease) K21.9 ; ED (erectile dysfunction) N52.9 ; HTN (hypertension) I10 ; Insomnia G47.00 ; COPD (chronic obstructive pulmonary disease) J44.9 ; Neuropathy G62.9 and Bipolar depression F31.30 [facility] [id number] [place] [address] 32698- 7544 Dec, Type 2 diabetes mellitus with other diabetic neurological complication E11.49 and Onychomycosis B35.1 [facility] [id number] [place] [address] 21322- 2957 Dec, [facility] [id number] [place] [address] 79021- 4542 Dec, [facility] [id number] [place] [address] 14062- 5009 Dec, [facility] [id number] [place] [address] 62973- 3433 Dec, [facility] [id number] [place] [address] 39996- 2506 Nov, [facility] [id number] [place] [address] 36166- 4364 Nov, [facility] [id number] [place] [address] 83890- 6164 Oct, [facility] [id number] [place] [address] 41085- 9238 Oct, [facility] [id number] [place] [address] 65127- 3880 Oct, Back pain M54.9 [facility] [id number] [place] [address] 75802- 3530 Oct, [facility] [id number] [place] [address] 68006- 5321 Oct, [facility] [address], [place] [address]- 2714 Oct, [facility] [id number] [place] [address] 12313- 6978 Oct, HTN (hypertension) I10 [facility] [id number] [place] [address] 70002- 7813 Oct, Back pain M54.9 [facility] [id number] [place] [address] 18163- 7701 Oct, Chronic pain syndrome G89.4 [place] [address] 92266- 8009 September, Back pain M54.9 [facility] [id number] [place] [address] 32631- 3604 September, HTN (hypertension) I10 [facility] [id number] [place] [address] 63846- 7185 Aug, Porokeratosis Q82.8 ; Onychomycosis B35.1 and Type 2 diabetes mellitus with other diabetic neurological complication E11.49 [facility] [id number] [place] [address] 13709- 2371 Aug, GERD (gastroesophageal reflux disease) K21.9 ; Diabetes E11.9 ; HTN (hypertension) I10 ; Insomnia G47.00 ; Restless legs syndrome G25.81 ; COPD (chronic obstructive pulmonary disease) J44.9 ; Back pain M54.9 and Bipolar 1 disorder F31.9 [facility] [place] [id number] [place] [address] 32118- 3128 Aug, [facility] [id number] [place] [address] 66122- 9020 Aug, [facility] [id number] [place] [address] 95642- 5178 Aug, [place] [address] [place] [address]- 4282 Aug, [facility] [address], [place] [address]- 1456 Jul, [facility] [address], [place] [address]- 8620 Jul, [facility] [address] [place] [address] 08716- 8740 30 Jul, 2015 [facility] [address] [place] [address] 62695- 6890 16 Jul, 2015 [facility] [id number] [place] [address] 52744- 3055 Jul, [facility] [id number] [place] [address] 10872- 4708 Jul, [facility] [id number] [place] [address] 22904- 8367 Jun, Decubital ulcer L89.90 ; Diabetes E11.9 ; Back pain M54.9 ; HTN (hypertension) I10 and COPD (chronic obstructive pulmonary disease) J44.9 [facility] [address], [place] [address]- 8972 Jun, [facility] [address], [place] [address]- 6292 Jun, [facility] [address], [place] [address]- 8516 Jun, [facility] [address], [place] [address]- 8561 Jun, [facility] [address], [place] [address]- 6478 Jun, Diabetes E11.9 ; Insomnia G47.00 ; Decubital ulcer L89.90 ; GERD (gastroesophageal reflux disease) K21.9 ; Back pain M54.9 ; Superficial fungus infection of skin B36.9 and HTN (hypertension) I10 [address] [id number] [id number] Jun, Dental examination Z01.20 [facility] [address], [place] [address]- 8511 May, [facility] [address], [place] [address]- 0604 May, [place] [place] [address], [place] [address]- 6495 May, [facility] [address], [place] [address]- 8658 May, Diabetes E11.9 ; HTN (hypertension) I10 and Decubital ulcer L89.90 [place] [address], [place] [address]- 0126 May, HTN (hypertension) I10 ; Decubital ulcer L89.90 and Diabetes E11.9 [place] [address], [place] [address]- 5518 30 Apr, 2015 Diabetes E11.9 ; GERD (gastroesophageal reflux disease) K21.9 ; Back pain M54.9 ; HTN (hypertension) I10 ; Restless legs syndrome G25.81 and Decubital ulcer L89.90 [place] [address], [place] [address]- 1150 Apr, [place] [place] [address], [place] [address]- 6748 Apr, Diabetes E11.9 ; HTN (hypertension) I10 ; Restless legs syndrome G25.81 ; GERD (gastroesophageal reflux disease) K21.9 and COPD ( chronic obstructive pulmonary disease) J44.9 [facility] [address], [place] [address]- 5455 Mar, [facility] [address], [place] [address]- 1391 Mar, [place] [place] [id number] [place] [address] 90622- 6769 Mar, Diabetes E11.9 ; Abscess L02.91 and Restless legs syndrome G25.81 [place] [place] [id number] [place] [address] 17426- 0452 Mar, [facility] [id number] [place] [address] 22342- 6465 Feb, GERD (gastroesophageal reflux disease) K21.9 ; Back pain M54.9 ; ED (erectile dysfunction) N52.9 ; Diabetes E11.9 ; HTN (hypertension) I10 and Insomnia G47.[address] 20786- 6553 Feb, [place] [address] 32464- 0351 Feb, [place] [address] 76257- 3756 Jan, [facility] [id number] [place] [address] 15352- 9195 Jan, Diabetes 250.00 ; Nondependent cannabis abuse, continuous 305.21 ; Cough 786.2 ; Schizoaffective disorder, unspecified 295.70 ; Sciatica 724.3 ; Other, mixed, or unspecified nondependent drug abuse, unspecified 305.90 ; Chronic pain 338.29 ; GERD (gastroesophageal reflux disease) 530.81 and HTN (hypertension) 401.9 [place] [id number] [place] [address] 72944- 7075 Jan, [place] [id number] [place] [address] 32249- 6637 Jan, [place] [id number] [place] [address] 62509- 4595 Jan, Diabetes mellitus without mention of complication, type I [ juvenile type], uncontrolled 250.03 ; Schizoaffective disorder, unspecified 295.70 ; Benign essential hypertension 401.1 ; Chronic pain associated with significant psychosocial dysfunction 338.4 ; Wheezing 786.07 ; Ear ache 388.70 ; Cough 786.2 ; Sciatica 724.3 and Foot pain, bilateral 729.5 [facility] [id number] [place] [address] 33518- 5111 Dec, [facility] [id number] [place] [address] 64850- 9437 Dec, [facility] [address] 17813- 4559 Dec, [facility] [id number] [place] [address] 86807- 4524 Dec, [facility] [address] 33756- 1861 Dec, [facility] [address] 34463- 3966 Nov, Elevated liver enzymes 790.5 [facility] [id number] [place] [address] 98812- 5380 Nov, [facility] [id number] [place] [address] 05463- 3128 Nov, [facility] [id number] [place] [address] 00959- 5260 Nov, [facility] [id number] [place] [address] 24221- 0941 Nov, Diabetes mellitus without mention of complication, type I [ juvenile type], uncontrolled 250.03 ; Benign essential hypertension 401.1 and Nondependent cannabis abuse, continuous 305.21 [facility] [id number] [place] [address] [id number]- 8851 Oct, Cellulitis 682.9 and Benign essential hypertension 401.1 [facility] [id number] [place] [address]8816- 7358 Oct, [facility] [address] [address] September, [facility] [place] [facility] [address] [id number] [place] [address] September, [facility] [place] [facility] [address] [id number] [place] [address] Aug, [facility] [place] [facility] [address] [id number] [place] [address]265 Aug, [facility] [place] [facility] [address] [id number] [place] [address]146 Aug, [facility] [place] [facility] [address] [id number] [place] [address] Aug, [facility] [place] [facility] [address] [id number] [place] [address] 270[address] Jul, [facility] [place] [facility] [address] [id number] [place] [address]- 04[address] Jul, [facility] [place] [facility] [address] [id number] [place] [address]652 Jul, [facility] [place] [facility] [address] [id number] [place] [address] 120[address] Jul, [facility] [place] [facility] [address] [id number] [place] [address]- 7338 Jul, [facility] [place] [facility] [address] [id number] [place] [address]25 Jul, [facility] [place] [facility] [address] [id number] [place] [address]- 9099 Jun, [facility] [place] [facility] [address] [id number] [place] [address] Jun, [facility] [place] [facility] [address] [id number] [place] [address]- 7248 Jun, [facility] [place] [facility] [address] [id number] [place] [address]- [address]164 Jun, [facility] [place] [facility] [address] [id number] [place] [address]- 3976 Jun, [facility] [place] [facility] [address] [id number] [place] [address] May, [facility] [place] [facility] [address] [id number] [place] [address]- [address]176 May, [facility] [place] [facility] [address] [id number] [place] [address]- [address] May, [facility] [place] [facility] [address] [id number] [place] [address]- 9665 May, [facility] [place] [facility] [address] [id number] [place] [address]- 1169 May, [facility] [place] [facility] [address] [id number] [place] [address] May, [facility] [place] [facility] [address] [id number] [place] [address] 3430 May, [facility] [place] [facility] [address] [id number] [place] [address]- 9218 May, [facility] [place] [facility] [address] [id number] [place] [address] Apr, [facility] [place] [facility] [address] [id number] [place] [address] Apr, [facility] [place] [facility] [address] [id number] [place] [address] Apr, [facility] [place] [facility] [address] [id number] [place] [address] Apr, [facility] [place] [facility] [address] [id number] [place] [address] Mar, [facility] [place] [facility] [address] [id number] [place] [address] Mar, [facility] [place] [facility] [address] [id number] [place] [address] Mar, [facility] [place] [facility] [address] [id number] [place] [address] Mar, [facility] [place] [facility] [address] [id number] [place] [address] Feb, [facility] [place] [facility] [address] [id number] [place] [address] Feb, [facility] [place] [facility] [address] [id number] [place] [address] Feb, [facility] [place] [facility] [address] [id number] [place] [address] Feb, [facility] [place] [facility] [address] [id number] [place] [address] Feb, [facility] [place] [facility] [address] [id number] [place] [address] Feb, [facility] [place] [facility] [address] [id number] [place] [address] Jan, [facility] [place] [facility] [address] [id number] [place] [address] Jan, [facility] [place] [facility] [address] [id number] [place] [address] Jan, [facility] [place] [facility] [address] [id number], [place] [address] Jan, [facility] [place] [facility] [address] [id number], [place] [address] Dec, [facility] [place] [facility] [address] [id number] [place] [address] Dec, [facility] [place] [facility] [address] [id number] [place] [address] Dec, [facility] [place] [facility] [address] [id number] [place] [address]681 Dec, [facility] [place] [facility] [address] [id number] [place] [address] Dec, [facility] [place] [facility] [address] [id number] [place] [address] 1670 Dec, [facility] [place] [facility] [address] [id number] [place] [address] Oct, [facility] [place] [facility] [address] [id number] [place] [address] Oct, [facility] [place] [facility] [address] [id number] [place] [address] September, [facility] [place] [facility] [address] [id number] [place] [address] September, [facility] [place] [facility] [address] [id number] [place] [address]181 September, [facility] [place] [facility] [address] [id number] [place] [address] September, [facility] [place] [facility] [address] [id number] [place] [address]162 September, [facility] [place] [facility] [address] [id number] [place] [address] September, [facility] [place] [facility] [address] [id number] [place] [address]698 Aug, [facility] [place] [facility] [address] [id number] [place] [address] Aug, [facility] [place] [facility] [address] [id number] [place] [address]17 Aug, [facility] [place] [facility] [address] [id number] [place] [address] 8615 Aug, [facility] [place] [facility] [address] [id number] [place] [address] Jul, [facility] [place] [facility] [address] [id number] [place] [address] Jul, [facility] [place] [facility] [address] [id number] [place] [address] Jun, [facility] [address] [id number] [place] [address] Jun, [facility] [address] [id number] [place] [address] May, [facility] [address] [id number] [place] [address] May, [facility] [address] [id number] [place] [address] Jan, [facility] [place] [facility] [address] [id number] [place] [address] Dec, [facility] [address] [id number] [place] [address] Jun, [facility] [address] [id number] [place] [address] May, [facility] [address] [id number] [place] [address] Nov, [facility] [address] [id number] [place] [address] September, [facility] [address] [id number] [place] [address] Aug, [facility] [place] [facility] [address] [id number] [place] [address]- 8466 Aug, [facility] [place] [facility] [address] [id number] [place] [address]- 5936 Aug, [facility] [place] [facility] [address] [id number] [place] [address]- [address]361 Aug, [facility] [place] [facility] [address] [id number] [place] [address] 7615 Nov, [facility] [place] [facility] [address] [id number], [place] [address] Oct, [facility] [id number], [place] [address] Jul, [facility] [id number], [place] [address] Feb, [facility] [id number], [place] [address] Feb, [facility] [id number], [place] [address] Apr, [facility] [id number], [place] [address] Apr, [facility] [id number], [place] [address] Feb, [facility] [id number], [place] [address] Feb, [facility] [address] [id number], [place] [address] Jul, IMMUNIZATIONS No Known Immunizations SOCIAL HISTORY Never Assessed REASON FOR VISIT Referral PLAN OF CARE VITAL SIGNS MEDICATIONS No Known Medications RESULTS No Results PROCEDURES No Known [...]
--- OUTSIDE RECORDS SUMMARY | 2018-09-15 22:36 | XMS REPORT ---
Author Author YVES BLEVINS Organization [facility] Address [address] [place] [address] Care Team Providers Care Candy Feeder Name Role Phone YVES BLEVINS Unavailable PROBLEMS Type Condition ICD9-CM Code ZOZ25-VK Code Onset Dates Condition Status SNOMED Code Problem HTN (hypertension) I10 Active 89999286 Problem Restless legs syndrome G25.81 Active 648912301 Problem GERD (gastroesophageal reflux disease) K21.9 Active 542796338 Problem Chronic hepatitis C without hepatic coma B18.2 Active 120069933 Problem ED (erectile dysfunction) N52.9 Active 289039483 Problem PAD (peripheral artery disease) I73.9 Active 138751503 Problem Ulcer of right foot, unspecified ulcer stage L97.519 Active 85525807 Problem 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 556228975 Problem COPD (chronic obstructive pulmonary disease) J44.9 Active 60201749 Problem DM neuro manif type II E11.49 Active 95662664 Problem Sinusitis, unspecified chronicity, unspecified location J32.9 Active 47800927 ALLERGIES No Information ENCOUNTERS Encounter Location Date Diagnosis [facility] [address] [address] Dec, [facility] [id number] [place] [address] 77438- 5296 Dec, [facility] [id number] [address] Dec, Upper respiratory tract infection, unspecified type J06.9 [facility] [address], [place] [address] Dec, [facility] [address] [address] Dec, Acute suppurative otitis media of right ear without spontaneous rupture of tympanic membrane, recurrence not specified H66.001 and Acute nasopharyngitis J00 [facility] [id number] [place] [address] 62756- 5057 Dec, Back pain M54.9 [facility] [id number] [place] [address] 00669- 6868 Dec, Foot infection L08.9 and Type 2 diabetes mellitus with other diabetic neurological complication E11.49 [facility] [address] [address] Nov, Cellulitis of toe of right foot L03.031 ; Polyneuropathy in diseases classified elsewhere G63 and HTN (hypertension) I10 [facility] [address] [address]- 4661 Nov, [facility] [address] 49[address]- 9266 Nov, [facility] [address] 17062- 9189 Nov, Back pain M54.9 [facility] [address] 02304- 7391 Nov, Shortness of breath R06.02 [facility] [id number] [place] [address] 58988- 2411 Nov, [facility] [id number] [place] [address] 72347- 5391 Oct, [facility] [id number] [place] [address] 19312- 0063 Oct, [facility] [address] 10358- 2655 Oct, [facility] [id number] [place] [address] 91385- 5888 Oct, [facility] [id number] [place] [address] 65026- 2498 Oct, [facility] [id number] [place] [address] 08962- 4282 Oct, Back pain M54.9 [facility] [id number] [place] [address] 50079- 8192 Oct, Back pain M54.9 [facility] [id number] [place] [address] 83457- 8498 Oct, [facility] [id number] [place] [address] 66327- 3646 September, [facility] [id number] [place] [address] 64973- 1468 September, [facility] [id number] [place] [address] 27157- 2950 September, [facility] [id number] [place] [address] 70779- 2829 September, Type 2 diabetes mellitus with other diabetic neurological complication E11.49 and Hypotension, unspecified hypotension type I95.9 [facility] [id number] [place] [address] 07574- 8726 September, [facility] [id number] [place] [address] 26967- 2401 September, [facility] [id number] [place] [address] 93357- 6021 September, Back pain M54.9 [facility] [id number] [place] [address] 73731- 6352 Aug, [facility] [id number] [place] [address] 94015- 7382 Aug, Acute cystitis with hematuria N30.01 ; Ulcer of right foot, unspecified ulcer stage L97.519 ; HTN (hypertension) I10 ; COPD (chronic obstructive pulmonary disease) J44.9 and DM neuro manif type II E11.49 [facility] [id number] [place] [address] 26360- 5094 Aug, Back pain M54.9 [facility] [id number] [place] [address] 87117- 6403 Jul, [facility] [id number] [place] [address] 10402- 0669 Jul, Back pain M54.9 [facility] [id number] [place] [address] 35270- 4271 Jul, [facility] [id number] [place] [address] 95680- 2508 Jul, DM neuro manif type II E11.49 and Ulcer of right foot, unspecified ulcer stage L97.519 [facility] [id number] [place] [address] 08706- 7833 Jun, [place] [address] 41323- 1732 Jun, [facility] [id number] [place] [address] 86455- 4776 May, Type 2 diabetes mellitus with other diabetic neurological complication E11.49 ; GERD (gastroesophageal reflux disease) K21.9 and PAD ( peripheral artery disease) I73.9 [place] [facility] [id number] [place] [address] 27519- 3248 17 May, 2017 Decubital ulcer L89.90 ; Diabetes E11.9 and GERD ( gastroesophageal reflux disease) K21.9 [facility] [id number] [place] [address] 97088- 5717 May, [facility] [id number] [place] [address] 72384- 2953 Apr, [facility] [id number] [place] [address] 62923- 2612 Mar, [facility] [id number] [place] [address] 76348- 2733 Mar, [facility] [address], [place] [address]- 4076 Feb, [facility] [id number] [place] [address] 04278- 5343 Feb, [facility] [id number] [place] [address] 69767- 5976 Jan, [facility] [id number] [place] [address] 51045- 7136 Jan, HTN (hypertension) I10 [facility] [id number] [place] [address] 44052- 2035 Jan, [facility] [id number] [place] [address] 56290- 9006 Dec, Back pain M54.9 [facility] [id number] [place] [address] 72828- 0253 Dec, Back pain M54.9 [facility] [id number] [place] [address] 86029 -6470 Dec, Encounter for immunization Z23 and Puncture wound of right foot, initial encounter S91.331A [facility] [id number] [place] [address] 04590- 2105 Dec, [facility] [address] [place] [address] 67855- 5264 Nov, [facility] [id number] [place] [address] 59379- 1730 Nov, COPD (chronic obstructive pulmonary disease) J44.9 [facility] [id number] [place] [address] 90626- 3344 Nov, [facility] [id number] [place] [address] 85730- 9966 Oct, [facility] [address], [place] [address]- 7447 Oct, [facility] [id number] [place] [address] 68894- 3682 September, Onychomycosis B35.1 and DM neuro manif type II E11.49 [facility] [id number] [place] [address] 30742- 3147 September, [facility] [id number] [place] [address] 44866- 3893 Aug, [facility] [id number] [place] [address] 74061- 8574 Jul, Sinusitis, unspecified chronicity, unspecified location J32.9 and Cough R05 [facility] [id number] [place] [address] 96969- 8547 Jul, Back pain M54.9 [facility] [id number] [place] [address] 23142- 3148 14 Jun, 2016 Back pain M54.9 [facility] [id number] [place] [address] 69911- 7839 06 Jun, 2016 COPD (chronic obstructive pulmonary disease) J44.9 [facility] [id number] [place] [address] 25076- 2878 May, [facility] [id number] [place] [address] 32446- 7098 May, [facility] [id number] [place] [address] 29746- 0634 May, Back pain M54.9 [facility] [id number] [place] [address] 29407- 3692 May, [facility] [id number] [place] [address] 39485- 3660 May, [facility] [id number] [place] [address] 13812- 6585 May, Diabetes E11.9 [facility] [id number] [place] [address] 28877- 4056 11 May, 2016 Diabetes E11.9 ; GERD [...] for hepatitis C screening test Z11.59 [facility] [id number] [place] [address] 87995- 8144 04 May, 2016 HTN (hypertension) I10 [facility] [address] 94618- 3361 29 Apr, 2016 [facility] [id number] [place] [address] 50058- 0750 Apr, [facility] [address] 07764- 7847 Apr, [facility] [id number] [place] [address] 89309- 6968 Apr, [facility] [address] 43663- 3670 Apr, [facility] [id number] [place] [address] 44547- 9366 Mar, [facility] [id number] [place] [address] 03718- 4208 Mar, [facility] [id number] [place] [address] 64667- 8710 Mar, [facility] [address] 33676- 1981 18 Mar, 2016 [facility] [id number] [place] [address] 72566- 3429 02 Mar, 2016 Dental examination Z01.20 [facility] [address] 75570- 6188 Feb, [facility] [address], [place] [address]- 8447 Feb, [facility] [id number] [place] [address] 05886- 0926 Feb, Back pain M54.9 [facility] [id number] [place] [address] 14280- 4534 Jan, [facility] [id number] [place] [address] 55063- 8388 Jan, [facility] [id number] [place] [address] 23081- 5758 Dec, Diabetes E11.9 ; GERD (gastroesophageal reflux disease) K21.9 ; ED (erectile dysfunction) N52.9 ; HTN (hypertension) I10 ; Insomnia G47.00 ; COPD (chronic obstructive pulmonary disease) J44.9 ; Neuropathy G62.9 and Bipolar depression F31.30 [facility] [id number] [place] [address] 43049- 7019 Dec, Type 2 diabetes mellitus with other diabetic neurological complication E11.49 and Onychomycosis B35.1 [facility] [id number] [place] [address] 01679- 2362 Dec, [facility] [address], [place] [address]- 4271 Dec, [facility] [id number] [place] [address] 57106- 4134 Dec, [facility] [id number] [place] [address] 77133- 8564 Dec, [facility] [id number] [place] [address] [phone]- 3885 Nov, [facility] [id number] [place] [address] [id number]- 6550 Nov, [facility] [id number] [place] [address] 59071- 6322 14 Oct, 2015 [facility] [id number] [place] [address] 01318- 7995 08 Oct, 2015 [facility] [id number] [place] [address] 23886- 2612 07 Oct, 2015 Back pain M54.9 [facility] [id number] [place] [address] 40396- 1969 Oct, [facility] [id number] [place] [address] 27210- 9331 Oct, [facility] [id number] [place] [address] 88334- 8944 Oct, [facility] [id number] [place] [address] 29025- 5004 Oct, HTN (hypertension) I10 [facility] [id number] [place] [address] 80882- 5848 Oct, Back pain M54.9 [facility] [id number] [place] [address] 04444- 1849 Oct, Chronic pain syndrome G89.4 [facility] [id number] [place] [address] 29511- 9674 September, Back pain M54.9 [facility] [id number] [place] [address] 94067- 9009 September, HTN (hypertension) I10 [facility] [id number] [place] [address] 26332- 8616 Aug, Porokeratosis Q82.8 ; Onychomycosis B35.1 and Type 2 diabetes mellitus with other diabetic neurological complication E11.49 [facility] [address] [place] [address] 15707- 5846 Aug, GERD (gastroesophageal reflux disease) K21.9 ; Diabetes E11.9 ; HTN (hypertension) I10 ; Insomnia G47.00 ; Restless legs syndrome G25.81 ; COPD (chronic obstructive pulmonary disease) J44.9 ; Back pain M54.9 and Bipolar 1 disorder F31.9 [facility] [address], [place] [address]- 4674 Aug, [facility] [address], [place] [address]- 8740 Aug, [facility] [id number] [place] [address] 11856- 5503 Aug, [facility] [id number] [place] [address] 89649- 4917 Aug, [facility] [id number] [place] [address] 38142- 1258 Jul, [facility] [id number] [place] [address] 97190- 6393 Jul, [facility] [id number] [place] [address] 37896- 4742 Jul, [facility] [address], [place] [address]- 8794 Jul, [facility] [id number] [place] [address] 35940- 2113 Jul, [facility] [address], [place] [address]- 6151 Jul, [facility] [address], [place] [address]- 3464 17 Jun, 2015 Decubital ulcer L89.90 ; Diabetes E11.9 ; Back pain M54.9 ; HTN (hypertension) I10 and COPD (chronic obstructive pulmonary disease) J44.9 [facility] [address], [place] [address]- 8264 Jun, [facility] [address], [place] [address]- 7292 Jun, [facility] [id number] [address]- 1709 Jun, [facility] [id number] [place] [address] 72851- 4318 Jun, [facility] [id number] [place] [address] 40891- 8294 Jun, Diabetes E11.9 ; Insomnia G47.00 ; Decubital ulcer L89.90 ; GERD (gastroesophageal reflux disease) K21.9 ; Back pain M54.9 ; Superficial fungus infection of skin B36.9 and HTN (hypertension) I10 [address] [id number] [id number] Jun, Dental examination Z01.20 [facility] [address] [place] [address] 19383- 3846 May, [facility] [id number] [place] [address] 88099- 0138 May, [facility] [id number] [place] [address] 50229- 1133 May, [facility] [id number] [place] [address] 24962- 0584 May, Diabetes E11.9 ; HTN (hypertension) I10 and Decubital ulcer L89.90 [facility] [address] [place] [address] 80812- 7915 May, HTN (hypertension) I10 ; Decubital ulcer L89.90 and Diabetes E11.9 [facility] [address] [address]- 9193 Apr, Diabetes E11.9 ; GERD (gastroesophageal reflux disease) K21.9 ; Back pain M54.9 ; HTN (hypertension) I10 ; Restless legs syndrome G25.81 and Decubital ulcer L89.90 [facility] [address] [address]- 2431 Apr, [facility] [id number] [place] [address] 38609- 1527 Apr, Diabetes E11.9 ; HTN (hypertension) I10 ; Restless legs syndrome G25.81 ; GERD (gastroesophageal reflux disease) K21.9 and COPD ( chronic obstructive pulmonary disease) J44.9 [facility] [id number] [place] [address] 87162- 6627 Mar, [facility] [address] 02626- 2858 Mar, [facility] [address] 96587- 0568 Mar, Diabetes E11.9 ; Abscess L02.91 and Restless legs syndrome G25.81 [facility] [id number] [place] [address] 37412- 4922 Mar, [facility] [address] 60492- 3010 Feb, GERD (gastroesophageal reflux disease) K21.9 ; Back pain M54.9 ; ED (erectile dysfunction) N52.9 ; Diabetes E11.9 ; HTN (hypertension) I10 and Insomnia G47.00 [facility] [id number] [place] [address] 49293- 1319 Feb, [facility] [id number] [place] [address] 20207- 1797 Feb, [facility] [id number] [place] [address] 11853- 1939 Jan, [facility] [id number] [place] [address] 37277- 2723 Jan, Diabetes 250.00 ; Nondependent cannabis abuse, continuous 305.21 ; Cough 786.2 ; Schizoaffective disorder, unspecified 295.70 ; Sciatica 724.3 ; Other, mixed, or unspecified nondependent drug abuse, unspecified 305.90 ; Chronic pain 338.29 ; GERD (gastroesophageal reflux disease) 530.81 and HTN (hypertension) 401.9 [facility] [address] [address]- 3489 Jan, [facility] [id number] [place] [address] 01494- 5541 Jan, [facility] [id number] [address]- 8894 Jan, Chronic pain associated with significant psychosocial dysfunction 338.4 ; Diabetes mellitus without mention of complication, type I [ juvenile type], uncontrolled 250.03 ; Benign essential hypertension 401.1 ; Schizoaffective disorder, unspecified 295.70 ; Wheezing 786.07 ; Ear ache 388.70 ; Cough 786.2 ; Sciatica 724.3 and Foot pain, bilateral 729.5 [facility] [id number] [place] [address]- 1684 Dec, [facility] [id number] [place] [address] [phone]- 1477 Dec, [facility] [id number] [place] [address] 35086- 4020 Dec, [facility] [id number] [place] [address] 17317- 0016 Dec, [facility] [id number], [place] [address] Dec, [facility] [id number] [place] [address] 9[address]17- 0535 Nov, Elevated liver enzymes 790.5 [facility] [id number] [place] [address] 15985- 2870 Nov, [facility] [id number] [place] [address] 58738- 7867 Nov, [facility] [id number], [place] [address] Nov, [facility] [id number] [place] [address] 48822- 2670 Nov, Benign essential hypertension 401.1 ; Diabetes mellitus without mention of complication, type I [juvenile type], uncontrolled 250.03 and Nondependent cannabis abuse, continuous 305.21 [facility] [id number] [place] [address] 86319- 1003 Oct, Cellulitis 682.9 and Benign essential hypertension 401.1 [facility] [id number] [place] [address] 38009- 2968 Oct, [facility] [id number] [place] [address] 34712- 9617 September, [facility] [id number] [place] [address] 78587- 3590 September, [facility] [id number] [place] [address] 33331- 1284 Aug, [facility] [id number] [place] [address] 06733- 2686 Aug, [facility] [id number] [place] [address] 61825- 7858 Aug, [facility] [id number] [place] [address] 12754- 0098 Aug, [facility] [id number] [place] [address] 85057- 3205 Jul, [facility] [id number] [place] [address] 62196- 6104 Jul, [facility] [id number] [place] [address] 90957- 9174 Jul, [facility] [facility] [id number] [place] [address]- [address] Jul, [facility] [id number] [place] [address]- 9884 Jul, [facility] [id number] [place] [address]- 8196 Jul, [facility] [place] [facility] [address] [id number] [place] [address] Jun, [facility] [place] [facility] [address] [id number] [place] [address] Jun, [facility] [place] [facility] [address] [id number] [place] [address] Jun, [facility] [place] [facility] [address] [id number] [place] [address] Jun, [facility] [place] [facility] [address] [id number] [place] [address] 1564 Jun, [facility] [place] [facility] [address] [id number] [place] [address] 8328 May, [facility] [place] [facility] [address] [id number] [place] [address]- 8945 May, [facility] [place] [facility] [address] [id number] [address] May, [facility] [place] [facility] [address] [id number] [place] [address]- [address]342 May, [facility] [place] [facility] [address] [id number], [place] [address] May, [facility] [place] [facility] [address] [id number], [place] [address] 6[address] May, [facility] [place] [facility] [address] [id number], [place] [address] May, [facility] [place] [facility] [address] [id number] [place] [address]- 9272 May, [facility] [place] [facility] [address] [id number], [place] [address] Apr, [facility] [place] [facility] [address] [id number] [place] [address]- 0526 Apr, [facility] [place] [facility] [address] [id number] [place] [address] Apr, [facility] [place] [facility] [address] [id number] [place] [address]- 6178 Apr, [facility] [place] [facility] [address] [id number] [place] [address]- 8311 Mar, [facility] [place] [facility] [address] [id number] [place] [address]- 6920 Mar, [facility] [place] [facility] [address] [id number] [place] [address]- 2200 Mar, [facility] [place] [facility] [address] [id number] [place] [address]- 9856 Mar, [facility] [place] [facility] [address] [id number] [place] [address]- 3[address] Feb, [facility] [place] [facility] [address] [id number] [place] [address]- 0109 Feb, [facility] [place] [facility] [address] [id number] [place] [address]- 4693 Feb, [facility] [place] [facility] [address] [id number] [place] [address]- 0896 Feb, [facility] [place] [facility] [address] [facility] [id number] [place] [address]- 7593 Feb, [facility] [place] [facility] [address] [id number] [place] [address]- 6877 Feb, [facility] [place] [facility] [address] [id number] [place] [address]- 0079 Jan, [facility] [place] [facility] [address] [id number] [place] [address]- 8759 Jan, [facility] [place] [facility] [address] [id number] [place] [address] Jan, [facility] [place] [facility] [address] [id number] [place] [address]- 0382 Jan, [facility] [place] [facility] [address] [id number] [place] [address]- 4820 Dec, [facility] [place] [facility] [address] [id number] [place] [address]- 3761 Dec, [facility] [place] [facility] [address] [id number] [place] [address]- 1584 Dec, [facility] [place] [facility] [address] [id number] [place] [address]- 8916 Dec, [facility] [place] [facility] [address] [id number] [place] [address]- 4597 Dec, [facility] [place] [facility] [address] [id number] [place] [address]- 9344 Dec, [facility] [place] [facility] [address] [id number] [place] [address]- 7569 Oct, [facility] [place] [facility] [address] [id number] [place] [address]- 5124 Oct, [facility] [place] [facility] [address] [id number] [place] [address]- 5721 September, [facility] [place] [facility] [address] [id number] [place] [address]- 3772 September, [facility] [place] [facility] [address] [id number] [place] [address]- 5421 September, [facility] [place] [facility] [address] [id number] [place] [address]- 4859 September, [facility] [place] [facility] [address] [id number] [place] [address]- 4977 September, [facility] [place] [facility] [address] [id number] [place] [address]- 2240 September, [facility] [place] [facility] [address] [id number] [place] [address]- 1281 Aug, [facility] [place] [facility] [address] [id number] [place] [address]- 9231 15 Aug, 2013 [facility] [address] [id number] [place] [address]- 1514 Aug, [facility] [place] [facility] [address] [id number] [place] [address]- 5236 Aug, [facility] [place] [facility] [address] [id number] [place] [address]- 3112 Jul, [facility] [place] [facility] [address] [id number] [place] [address]- 3272 Jul, [facility] [place] [facility] [address] [id number] [place] [address]- 0117 Jun, [facility] [place] [facility] [address] [id number] [place] [address]- 8093 Jun, [facility] [place] [facility] [address] [id number] [place] [address]- 5408 May, [facility] [place] [facility] [address] [id number] [place] [address]- 5450 May, [facility] [place] [facility] [address] [id number] [place] [address]- 7256 Jan, [facility] [place] [facility] [address] [id number] [place] [address]- 9342 Dec, [facility] [place] [facility] [address] [id number] [place] [address]- 3109 Jun, [facility] [place] [facility] [address] [id number] [place] [address]- 1208 May, [facility] [place] [facility] [address] [id number] [place] [address]- 2829 Nov, [facility] [place] [facility] [address] [id number] [place] [address]- 6101 September, [facility] [place] [facility] [address] [id number] [place] [address]- 0994 Aug, [facility] [place] [facility] [address] [id number], [place] [address]- 9339 Aug, [facility] [id number] [place] [address]- [address]92 Aug, [facility] [id number] [address]- [address]603 Aug, [facility] [id number] [address]- [address] Nov, [facility] [id number], [place] [address]- 6136 Oct, [facility] [id number], [place] [address]- 4238 Jul, [facility] [id number] [place] [address]- 6415 Feb, [facility] [id number], [place] [address]- 6792 Feb, [facility] [id number], [place] [address]- 7273 Apr, [facility] [id number], [place] [address]- 3986 Apr, [facility] [address] [id number], [place] [address]- 2370 Feb, [facility] [address] [id number], [place] [address]- 3869 Feb, [facility] [address] [id number], [place] [address]- 0293 Jul, IMMUNIZATIONS No Known Immunizations SOCIAL HISTORY Never Assessed REASON FOR VISIT Blood pressure check -Kain [employer] PLAN OF CARE VITAL SIGNS Height 70 in 2017-11-04 Blood pressure systolic 200 mmHg 2017-11-04 Blood pressure diastolic 100 mmHg 2017-11-04 MEDICATIONS Unknown Medications RESULTS No Results PROCEDURES [...]
--- OUTSIDE RECORDS SUMMARY | 2018-09-15 22:37 | XMS REPORT ---
Author Author YVES BLEVINS [facility] Address [address] [place] [address] Care Team Providers Care Head Chef Name Role Phone YVES BLEVINS Unavailable PROBLEMS Type Condition ICD9-CM Code IGO02-MM Code Onset Dates Condition Status SNOMED Code Problem HTN (hypertension) I10 Active 09120487 Problem Restless legs syndrome G25.81 Active 717284600 Problem GERD (gastroesophageal reflux disease) K21.9 Active 434886382 Problem Chronic hepatitis C without hepatic coma B18.2 Active 616371845 Problem ED (erectile dysfunction) N52.9 Active 359199184 Problem PAD (peripheral artery disease) I73.9 Active 880116161 Problem Ulcer of right foot, unspecified ulcer stage L97.519 Active 33467936 Problem 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 258597049 Problem COPD (chronic obstructive pulmonary disease) J44.9 Active 83393948 Problem DM neuro manif type II E11.49 Active 01802152 Problem Sinusitis, unspecified chronicity, unspecified location J32.9 Active 42022186 ALLERGIES No Information ENCOUNTERS Encounter Location Date Diagnosis [facility] [id number] [place] [address] 87429 -8514 Dec, Acute suppurative otitis media of right ear without spontaneous rupture of tympanic membrane, recurrence not specified H66.001 and Acute nasopharyngitis J00 [facility] [address], [place] [address] 7560 Dec, Back pain M54.9 [facility] [id number] [place] [address] 04798- 5200 Dec, Foot infection L08.9 and Type 2 diabetes mellitus with other diabetic neurological complication E11.49 [facility] [address] [place] [address] 25963- 8081 Nov, Cellulitis of toe of right foot L03.031 ; Polyneuropathy in diseases classified elsewhere G63 and HTN (hypertension) I10 [facility] [id number] [place] [address], [place] [address]- 2508 Nov, [facility] [id number] [place] [address] 45692- 4439 Nov, [facility] [id number] [place] [address] 03529- 3395 Nov, Back pain M54.9 [facility] [id number] [place] [address] 22242- 8443 Nov, Shortness of breath R06.02 [facility] [id number] [place] [address] 96981- 4652 Nov, [facility] [id number] [place] [address] 61162- 1476 Oct, [facility] [id number] [place] [address] 08190- 3035 Oct, [facility] [id number] [place] [address] 24012- 6523 Oct, [facility] [id number] [place] [address] 27335- 1741 Oct, [facility] [id number] [place] [address] 20171- 0447 Oct, [facility] [id number] [place] [address] 56389- 8906 Oct, Back pain M54.9 [facility] [id number] [place] [address] 10331- 9955 Oct, Back pain M54.9 [facility] [id number] [place] [address] 30743- 2862 Oct, [facility] [id number] [place] [address] 21483- 3170 September, [facility] [address], [place] [address]- 4153 September, [facility] [id number] [place] [address] 43383- 0955 September, [facility] [id number] [place] [address] 70284- 5494 September, Type 2 diabetes mellitus with other diabetic neurological complication E11.49 and Hypotension, unspecified hypotension type I95.9 [facility] [id number] [place] [address] 30138- 7857 September, [facility] [id number] [place] [address] 76740- 9292 September, [facility] [id number] [place] [address] 03565- 4045 September, Back pain M54.9 [facility] [id number] [place] [address] 82434- 0905 Aug, [facility] [id number] [place] [address] 58804- 1684 Aug, Acute cystitis with hematuria N30.01 ; Ulcer of right foot, unspecified ulcer stage L97.519 ; HTN (hypertension) I10 ; COPD (chronic obstructive pulmonary disease) J44.9 and DM neuro manif type II E11.49 [facility] [id number] [place] [address] 91233- 5391 Aug, Back pain M54.9 [facility] [id number], [place] [address]- 6653 Jul, [facility] [id number] [place] [address] 35560- 2013 Jul, Back pain M54.9 [facility] [id number] [place] [address] 30635- 0728 Jul, [facility] [id number] [place] [address] 44586- 2943 Jul, DM neuro manif type II E11.49 and Ulcer of right foot, unspecified ulcer stage L97.519 [facility] [id number] [place] [address] 94901- 6160 Jun, [facility] [id number] [place] [address] 63781- 1320 Jun, [facility] [address] [address]- 5542 May, Type 2 diabetes mellitus with other diabetic neurological complication E11.49 ; GERD (gastroesophageal reflux disease) K21.9 and PAD ( peripheral artery disease) I73.9 [facility] [id number] [place] [address] 32954- 2935 May, Decubital ulcer L89.90 ; Diabetes E11.9 and GERD ( gastroesophageal reflux disease) K21.9 [facility] [id number] [place] [address] 79579- 9873 May, [facility] [id number] [place] [address] 72090- 6174 Apr, [facility] [id number] [place] [address] 33410- 5416 Mar, [facility] [id number] [place] [address] 33300- 0725 Mar, [facility] [id number] [place] [address] 87378- 1021 Feb, [facility] [id number] [place] [address] 26931- 2012 Feb, [facility] [id number] [place] [address] 85417- 7567 Jan, [facility] [id number] [place] [address] 98929- 1602 Jan, HTN (hypertension) I10 [facility] [address] [place] [address]- 3699 Jan, [facility] [id number] [place] [address] 20677- 3997 Dec, Back pain M54.9 [facility] [id number] [place] [address] 75705- 5319 Dec, Back pain M54.9 [facility] [id number] [place] [address] 83832 -6395 Dec, Encounter for immunization Z23 and Puncture wound of right foot, initial encounter S91.331A [facility] [id number] [place] [address] 01968- 1342 Dec, [facility] [id number] [place] [address] 68233- 2562 Nov, [facility] [id number] [place] [address] 56407- 4109 Nov, COPD (chronic obstructive pulmonary disease) J44.9 [facility] [id number] [place] [address] 25743- 0225 Nov, [facility] [id number] [place] [address] 23369- 2885 Oct, [facility] [id number] [place] [address] 65504- 8567 Oct, [facility] [id number] [place] [address] 09665- 8650 September, Onychomycosis B35.1 and DM neuro manif type II E11.49 [facility] [id number] [place] [address] 87297- 4327 September, [facility] [id number] [place] [address] 91149- 8130 Aug, [facility] [id number] [place] [address] 77968- 2856 Jul, Sinusitis, unspecified chronicity, unspecified location J32.9 and Cough R05 [facility] [id number] [place] [address] 74012- 0646 13 Jul, 2016 Back pain M54.9 [facility] [id number] [place] [address] 04320- 3097 14 Jun, 2016 Back pain M54.9 [facility] [id number] [place] [address] 13901- 4144 06 Jun, 2016 COPD (chronic obstructive pulmonary disease) J44.9 [facility] [id number] [place] [address] 17281- 4420 17 May, 2016 [facility] [id number] [place] [address] 90079- 6520 17 May, 2016 [facility] [id number] [place] [address] 99210- 3388 May, Back pain M54.9 [facility] [id number] [place] [address] 47618- 0294 16 May, 2016 [facility] [id number] [place] [address] 05100- 8692 May, [facility] [id number] [place] [address] 39274- 4193 12 May, 2016 Diabetes E11.9 [facility] [id number] [place] [address] 97603- 7947 11 May, 2016 Diabetes E11.9 ; GERD [...] Z11.59 [facility] [id number] [place] [address] 62990- 9576 May, HTN (hypertension) I10 [facility] [address] [id number] [place] [address]- 2610 Apr, [facility] [place] [facility] [address] [id number] [place] [address]- 4974 Apr, [facility] [place] [facility] [address] [id number] [place] [address]- 5939 Apr, [facility] [place] [facility] [id number] [place] [address], [place] [address]- 9463 Apr, [facility] [place] [facility] [id number] [place] [address], [place] [address]- 1513 Apr, [facility] [place] [facility] [address] [facility] [id number] [place] [address], [place] [address]- 3828 Mar, [facility] [id number] [place] [address], [place] [address]- 3360 Mar, [facility] [address] [facility] [id number] [place] [address]- 9054 Mar, [facility] [address] [facility] [id number] [place] [address] 41824- 3824 Mar, [facility] [id number], [place] [address]- 4660 Mar, Dental examination Z01.20 [facility] [id number], [place] [address]- 0347 Feb, [facility] [address] [facility] [id number], [place] [address]- 5577 Feb, [facility] [address] [facility] [id number], [place] [address]- 0767 Feb, Back pain M54.9 [facility] [address] [facility] [id number], [place] [address]- 4595 Jan, [facility] [address], [place] [address]- 2984 Jan, [facility] [address], [place] [address]- 2972 Dec, Diabetes E11.9 ; GERD (gastroesophageal reflux disease) K21.9 ; ED (erectile dysfunction) N52.9 ; HTN (hypertension) I10 ; Insomnia G47.00 ; COPD (chronic obstructive pulmonary disease) J44.9 ; Neuropathy G62.9 and Bipolar depression F31.30 [facility] [id number] [place] [address] 35006- 6604 Dec, Type 2 diabetes mellitus with other diabetic neurological complication E11.49 and Onychomycosis B35.1 [facility] [id number] [place] [address] 95247- 7674 Dec, [facility] [id number] [place] [address] 02828- 6136 Dec, [facility] [id number] [place] [address] 01938- 3942 Dec, [facility] [id number] [place] [address] 32571- 7782 Dec, [facility] [id number] [place] [address] 34049- 7706 Nov, [facility] [id number] [place] [address] 04572- 3417 Nov, [facility] [id number] [place] [address] 45766- 8219 Oct, [facility] [id number] [place] [address] 89584- 5150 Oct, [facility] [id number] [place] [address] 18372- 7001 Oct, Back pain M54.9 [facility] [id number] [place] [address] 50177- 0278 Oct, [facility] [id number] [place] [address] 52374- 5635 Oct, [facility] [address], [place] [address]- 3552 Oct, [facility] [id number] [place] [address] 40494- 2837 Oct, HTN (hypertension) I10 [facility] [id number] [place] [address] 97987- 2381 Oct, Back pain M54.9 [facility] [id number] [place] [address] 53007- 2990 Oct, Chronic pain syndrome G89.4 [facility] [address] 81148- 0371 September, Back pain M54.9 [facility] [id number] [place] [address] 98554- 3435 September, HTN (hypertension) I10 [facility] [id number] [place] [address] 84792- 8020 Aug, Porokeratosis Q82.8 ; Onychomycosis B35.1 and Type 2 diabetes mellitus with other diabetic neurological complication E11.49 [facility] [id number] [place] [address] 17876- 5772 Aug, GERD (gastroesophageal reflux disease) K21.9 ; Diabetes E11.9 ; HTN (hypertension) I10 ; Insomnia G47.00 ; Restless legs syndrome G25.81 ; COPD (chronic obstructive pulmonary disease) J44.9 ; Back pain M54.9 and Bipolar 1 disorder F31.9 [facility] [id number] [place] [address] 01381- 3412 Aug, [facility] [id number] [place] [address] 20229- 1103 Aug, [facility] [id number] [place] [address] 85048- 3655 Aug, [facility] [address] [place] [address]- 8287 Aug, [facility] [address], [place] [address]- 3977 Jul, [facility] [address], [place] [address]- 9989 Jul, [facility] [address] [place] [address] 78970- 2514 30 Jul, 2015 [facility] [address] [place] [address] 42976- 3635 16 Jul, 2015 [facility] [id number] [place] [address] 09097- 1078 Jul, [facility] [id number] [place] [address] 21165- 4970 Jul, [facility] [id number] [place] [address] 68558- 6199 Jun, Decubital ulcer L89.90 ; Diabetes E11.9 ; Back pain M54.9 ; HTN (hypertension) I10 and COPD (chronic obstructive pulmonary disease) J44.9 [facility] [address], [place] [address]- 4873 Jun, [facility] [address], [place] [address]- 5477 Jun, [facility] [address], [place] [address]- 6926 Jun, [facility] [address], [place] [address]- 7391 Jun, [facility] [address], [place] [address]- 5945 Jun, Diabetes E11.9 ; Insomnia G47.00 ; Decubital ulcer L89.90 ; GERD (gastroesophageal reflux disease) K21.9 ; Back pain M54.9 ; Superficial fungus infection of skin B36.9 and HTN (hypertension) I10 [address] [id number] [address] Jun, Dental examination Z01.20 [facility] [address], [place] [address]- 1734 May, [facility] [address], [place] [address]- 1446 May, [facility] [address], [place] [address]- 1421 May, [facility] [address], [place] [address]- 2318 May, Diabetes E11.9 ; HTN (hypertension) I10 and Decubital ulcer L89.90 [facility] [address], [place] [address]- 5953 May, HTN (hypertension) I10 ; Decubital ulcer L89.90 and Diabetes E11.9 [facility] [address], [place] [address]- 6834 30 Apr, 2015 Diabetes E11.9 ; GERD (gastroesophageal reflux disease) K21.9 ; Back pain M54.9 ; HTN (hypertension) I10 ; Restless legs syndrome G25.81 and Decubital ulcer L89.90 [facility] [address], [place] [address]- 5175 Apr, [facility] [address], [place] [address]- 8138 Apr, Diabetes E11.9 ; HTN (hypertension) I10 ; Restless legs syndrome G25.81 ; GERD (gastroesophageal reflux disease) K21.9 and COPD ( chronic obstructive pulmonary disease) J44.9 [facility] [address], [place] [address]- 5799 Mar, [facility] [address], [place] [address]- 1848 Mar, [facility] [id number] [place] [address] 83626- 0125 Mar, Diabetes E11.9 ; Abscess L02.91 and Restless legs syndrome G25.81 [facility] [id number] [place] [address] 77477- 8123 Mar, [facility] [id number] [place] [address] 32838- 3271 Feb, GERD (gastroesophageal reflux disease) K21.9 ; Back pain M54.9 ; ED (erectile dysfunction) N52.9 ; Diabetes E11.9 ; HTN (hypertension) I10 and Insomnia G47.[address] 05376- 2277 Feb, [facility] [address] 71642- 7006 Feb, [facility] [address] 73156- 3465 Jan, [facility] [id number] [place] [address] 47969- 6006 Jan, Diabetes 250.00 ; Nondependent cannabis abuse, continuous 305.21 ; Cough 786.2 ; Schizoaffective disorder, unspecified 295.70 ; Sciatica 724.3 ; Other, mixed, or unspecified nondependent drug abuse, unspecified 305.90 ; Chronic pain 338.29 ; GERD (gastroesophageal reflux disease) 530.81 and HTN (hypertension) 401.9 [facility] [id number] [place] [address] 90596- 4805 Jan, [place] [id number] [place] [address] 31016- 7311 Jan, [place] [id number] [place] [address] 97618- 0858 Jan, Chronic pain associated with significant psychosocial dysfunction 338.4 ; Diabetes mellitus without mention of complication, type I [ juvenile type], uncontrolled 250.03 ; Benign essential hypertension 401.1 ; Schizoaffective disorder, unspecified 295.70 ; Wheezing 786.07 ; Ear ache 388.70 ; Cough 786.2 ; Sciatica 724.3 and Foot pain, bilateral 729.5 [facility] [id number] [place] [address] 83116- 3629 Dec, [facility] [id number] [place] [address] 53853- 9025 Dec, [facility] [address] 85537- 5186 Dec, [facility] [id number] [place] [address] 66992- 1137 Dec, [facility] [address] 95856- 9810 Dec, [facility] [address] 47845- 4215 Nov, Elevated liver enzymes 790.5 [facility] [id number] [place] [address] 35017- 1146 Nov, [facility] [address] 95502- 7110 Nov, [facility] [id number] [place] [address] 97881- 3389 Nov, [facility] [id number] [place] [address] 31790- 9054 Nov, Benign essential hypertension 401.1 ; Diabetes mellitus without mention of complication, type I [juvenile type], uncontrolled 250.03 and Nondependent cannabis abuse, continuous 305.21 [facility] [id number] [place] [address] 62872- 7371 Oct, Cellulitis 682.9 and Benign essential hypertension 401.1 [facility] [id number] [place] [address] 47517- 2060 Oct, [facility] [address] 02987- 4297 September, [facility] [place] [facility] [address] [id number] [place] [address]- 5564 September, [facility] [place] [facility] [address] [id number] [place] [address]- 8958 Aug, [facility] [place] [facility] [address] [id number] [place] [address] Aug, [facility] [place] [facility] [address] [id number] [place] [address] Aug, [facility] [place] [facility] [address] [id number] [place] [address] Aug, [facility] [place] [facility] [address] [id number] [place] [address] Jul, [facility] [place] [facility] [address] [id number] [place] [address] Jul, [facility] [place] [facility] [address] [id number] [place] [address] Jul, [facility] [place] [facility] [address] [id number] [place] [address] Jul, [facility] [place] [facility] [address] [id number] [place] [address] Jul, [facility] [place] [facility] [address] [id number] [place] [address] Jul, [facility] [place] [facility] [address] [id number] [place] [address] Jun, [facility] [place] [facility] [address] [id number] [place] [address] Jun, [facility] [place] [facility] [address] [id number] [place] [address] Jun, [facility] [place] [facility] [address] [id number] [place] [address] Jun, [facility] [place] [facility] [address] [id number] [place] [address] Jun, [facility] [place] [facility] [address] [id number] [place] [address] May, [facility] [place] [facility] [address] [id number] [place] [address] May, [facility] [place] [facility] [address] [id number] [place] [address] May, [facility] [place] [facility] [address] [id number] [place] [address] May, [facility] [place] [facility] [address] [id number] [place] [address] May, [facility] [place] [facility] [address] [id number] [place] [address] May, [facility] [place] [facility] [address] [id number] [place] [address] May, [facility] [place] [facility] [address] [id number] [place] [address] May, [facility] [place] [facility] [address] [id number] [place] [address] Apr, [facility] [place] [facility] [address] [id number] [place] [address] Apr, [facility] [place] [facility] [address] [id number] [place] [address] Apr, [facility] [place] [facility] [address] [id number] [place] [address] Apr, [facility] [place] [facility] [address] [id number] [place] [address] Mar, [facility] [place] [facility] [address] [id number] [place] [address] Mar, [facility] [place] [facility] [address] [id number] [place] [address] Mar, [facility] [place] [facility] [address] [id number] [place] [address] Mar, [facility] [place] [facility] [address] [id number] [place] [address] Feb, [facility] [place] [facility] [address] [id number] [place] [address] Feb, [facility] [place] [facility] [address] [id number] [place] [address] Feb, [facility] [place] [facility] [address] [id number] [place] [address] Feb, [facility] [place] [facility] [address] [id number] [place] [address] Feb, [facility] [place] [facility] [address] [id number] [place] [address] Feb, [facility] [place] [facility] [address] [id number] [place] [address] Jan, [facility] [place] [facility] [address] [id number] [place] [address] Jan, [facility] [place] [facility] [address] [id number] [place] [address] Jan, [facility] [place] [facility] [address] [id number], [place] [address] Jan, [facility] [place] [facility] [address] [id number], [place] [address] Dec, [facility] [place] [facility] [address] [id number] [place] [address] Dec, [facility] [place] [facility] [address] [id number] [place] [address] Dec, [facility] [place] [facility] [address] [id number] [place] [address] Dec, [facility] [place] [facility] [address] [id number] [place] [address] Dec, [facility] [place] [facility] [address] [id number] [place] [address] Dec, [facility] [place] [facility] [address] [id number] [place] [address] Oct, [facility] [place] [facility] [address] [id number] [place] [address] Oct, [facility] [place] [facility] [address] [id number] [place] [address] September, [facility] [place] [facility] [address] [id number] [place] [address]- [address] September, [facility] [place] [facility] [address] [id number] [place] [address] September, [facility] [place] [facility] [address] [id number] [place] [address]- [address] September, [facility] [place] [facility] [address] [id number] [place] [address] September, [facility] [place] [facility] [address] [id number] [place] [address] September, [facility] [place] [facility] [address] [id number] [place] [address] Aug, [facility] [place] [facility] [address] [id number] [place] [address] Aug, [facility] [place] [facility] [address] [id number] [place] [address] Aug, [facility] [place] [facility] [address] [id number] [place] [address]86 Aug, [facility] [place] [facility] [address] [id number] [place] [address] Jul, [facility] [place] [facility] [address] [id number] [place] [address]- [address] Jul, [facility] [place] [facility] [address] [id number] [place] [address] Jun, [facility] [address] [id number] [place] [address] Jun, [facility] [address] [id number] [place] [address] May, [facility] [address] [id number] [place] [address] May, [facility] [address] [id number] [place] [address] Jan, [facility] [place] [facility] [address] [id number] [place] [address] Dec, [facility] [address] [id number] [place] [address] Jun, [facility] [address] [id number] [place] [address] May, [facility] [address] [id number] [place] [address] Nov, [facility] [address] [id number] [place] [address] September, [facility] [address] [id number] [place] [address] Aug, [facility] [place] [facility] [address] [id number] [place] [address] Aug, [facility] [place] [facility] [address] [id number] [place] [address] Aug, [facility] [place] [facility] [address] [id number] [place] [address]- [address] Aug, [facility] [place] [facility] [address] [id number] [place] [address] Nov, [facility] [place] [facility] [address] [id number], [place] [address] Oct, [facility] [id number], [place] [address] Jul, [facility] [id number], [place] [address] Feb, [facility] [address] [id number], [place] [address] Feb, [facility] [id number], [place] [address] Apr, [facility] [address] [id number], [place] [address] Apr, [facility] [id number], [place] [address] Feb, [facility] [id number], [place] [address] Feb, [facility] [address] [id number], [place] [address] Jul, IMMUNIZATIONS No Known Immunizations SOCIAL HISTORY Never Assessed REASON FOR VISIT [place] PLAN OF CARE VITAL SIGNS MEDICATIONS Medication [...]
--- OUTSIDE RECORDS SUMMARY | 2018-09-15 22:38 | XMS REPORT ---
Author Author YVES BLEVINS [facility] Address [address] [place] [address] Care Team Providers Care Talent Sourcing Specialist Name Role Phone YVES BLEVINS Unavailable PROBLEMS Type Condition ICD9-CM Code LIS84-EM Code Onset Dates Condition Status SNOMED Code Problem HTN (hypertension) I10 Active 82345659 Problem Restless legs syndrome G25.81 Active 177115869 Problem GERD (gastroesophageal reflux disease) K21.9 Active 761414363 Problem Chronic hepatitis C without hepatic coma B18.2 Active 857016890 Problem ED (erectile dysfunction) N52.9 Active 024589308 Problem PAD (peripheral artery disease) I73.9 Active 096395671 Problem Ulcer of right foot, unspecified ulcer stage L97.519 Active 63515553 Problem 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 924332370 Problem COPD (chronic obstructive pulmonary disease) J44.9 Active 23782881 Problem DM neuro manif type II E11.49 Active 15452948 Problem Sinusitis, unspecified chronicity, unspecified location J32.9 Active 84019615 ALLERGIES No Information ENCOUNTERS Encounter Location Date Diagnosis [place] [id number] [place] [address] 32961- 8968 Dec, Back pain M54.9 [facility] [id number] [place] [address] 59072- 6328 Dec, 2018 Foot infection L08.9 and Type 2 diabetes mellitus with other diabetic neurological complication E11.49 [facility] [id number] [place] [address] 18455- 3507 Nov, Cellulitis of toe of right foot L03.031 ; Polyneuropathy in diseases classified elsewhere G63 and HTN (hypertension) I10 [place] [address] [place] [id number] [place] [address] 91762- 0131 Nov, [facility] [address] [id number] [place] [address] 1736 Nov, [facility] [address] [facility] [id number] [place] [address], [place] [address]- 9382 Nov, Back pain M54.9 [facility] [address] [facility] [id number] [place] [address]- 3312 Nov, Shortness of breath R06.02 [facility] [address] [id number] [place] [address]- 2777 Nov, [facility] [address] [id number] [place] [address], [place] [address]- 0572 Oct, [facility] [address] [facility] [id number] [place] [address]- 6634 Oct, [facility] [address] [place] [id number] [place] [address], [place] [address]- 6140 Oct, [facility] [address] [facility] [id number] [place] [address]- 3242 Oct, [facility] [address] [id number] [address]- 2364 Oct, [facility] [id number] [address]- 7479 Oct, Back pain M54.9 [facility] [id number] [address]- 5929 Oct, Back pain M54.9 [facility] [address] [facility] [id number] [place] [address]- 8503 Oct, [facility] [address] [facility] [id number] [place] [address]- 4153 September, [facility] [address] [facility] [id number] [place] [address]- 1751 September, [facility] [address] [id number] [address]- 7149 September, [facility] [address] [address]- 6564 September, Type 2 diabetes mellitus with other diabetic neurological complication E11.49 and Hypotension, unspecified hypotension type I95.9 [facility] [address] [address]- 9471 September, [facility] [id number] [place] [address] 60998- 5342 September, [facility] [id number] [place] [address] 33060- 7086 September, Back pain M54.9 [facility] [id number] [place] [address] 05286- 5392 Aug, [facility] [id number] [place] [address] 18913- 0484 Aug, Acute cystitis with hematuria N30.01 ; Ulcer of right foot, unspecified ulcer stage L97.519 ; HTN (hypertension) I10 ; COPD (chronic obstructive pulmonary disease) J44.9 and DM neuro manif type II E11.49 [facility] [id number] [place] [address] 78520- 3885 Aug, Back pain M54.9 [facility] [id number] [place] [address] 84032- 1971 Jul, [facility] [id number] [place] [address] 53229- 2429 Jul, Back pain M54.9 [facility] [id number] [place] [address] 78850- 5933 Jul, [facility] [address] [place] [id number] [place] [address] 53489- 0123 Jul, DM neuro manif type II E11.49 and Ulcer of right foot, unspecified ulcer stage L97.519 [facility] [id number] [place] [address] 01075- 0796 Jun, [facility] [id number] [place] [address] 98634- 9432 Jun, [facility] [id number] [place] [address] 77937- 5266 May, Type 2 diabetes mellitus with other diabetic neurological complication E11.49 ; GERD (gastroesophageal reflux disease) K21.9 and PAD ( peripheral artery disease) I73.9 [facility] [address] 09191- 1754 May, Decubital ulcer L89.90 ; Diabetes E11.9 and GERD ( gastroesophageal reflux disease) K21.9 [facility] [address] 11197- 2053 May, [facility] [id number] [place] [address] 61373- 3453 Apr, [facility] [id number] [place] [address] 02580- 9843 Mar, [facility] [id number] [place] [address] 26693- 1866 Mar, [facility] [id number] [place] [address] 10315- 9876 Feb, [facility] [id number] [place] [address] 76956- 4855 Feb, [facility] [id number] [place] [address] 48086- 6222 Jan, [facility] [id number] [place] [address] 10693- 9013 Jan, HTN (hypertension) I10 [facility] [id number] [place] [address] 78675- 4834 Jan, [facility] [id number] [place] [address] 60719- 8700 Dec, Back pain M54.9 [facility] [address] [address]- 5823 Dec, Back pain M54.9 [facility] [id number] [place] [address] 80964 -7762 Dec, Encounter for immunization Z23 and Puncture wound of right foot, initial encounter S91.331A [facility] [id number] [place] [address] 13051- 2637 Dec, [facility] [id number] [place] [address] 49055- 9477 Nov, [facility] [id number] [place] [address] 04022- 0038 Nov, COPD (chronic obstructive pulmonary disease) J44.9 [facility] [id number] [place] [address] 00370- 5645 Nov, [facility] [id number] [place] [address] 98496- 1882 Oct, [facility] [id number] [place] [address] 50366- 6353 Oct, [facility] [id number] [place] [address] 28025- 6735 September, Onychomycosis B35.1 and DM neuro manif type II E11.49 [facility] [id number] [place] [address] 07147- 9665 September, [facility] [id number] [place] [address] 30930- 6304 Aug, [facility] [id number] [place] [address] 09293- 0924 Jul, Sinusitis, unspecified chronicity, unspecified location J32.9 and Cough R05 [facility] [address] [address]- 1825 Jul, Back pain M54.9 [facility] [id number] [place] [address] 19842- 3976 14 Jun, 2016 Back pain M54.9 [facility] [id number] [place] [address] 97010- 7715 06 Jun, 2016 COPD (chronic obstructive pulmonary disease) J44.9 [facility] [id number] [place] [address] 15894- 9451 May, [facility] [address] 47277- 3825 May, [facility] [id number] [place] [address] 18302- 0996 May, Back pain M54.9 [facility] [id number] [place] [address] 92946- 3948 May, [place] [address] [place] [address] [id number] [place] [address] 16198- 4964 May, [facility] [id number] [place] [address] 68633- 7138 May, Diabetes E11.9 [place] [address] [place] [address] [id number] [place] [address] 07879- 0761 May, Diabetes E11.9 ; GERD (gastroesophageal reflux [...] Need for hepatitis C screening test Z11.59 [facility] [id number] [place] [address] 04241- 4263 May, HTN (hypertension) I10 [facility] [id number] [place] [address] 83911- 0870 Apr, [facility] [address] 50703- 1784 Apr, [facility] [id number] [place] [address] 50551- 9896 Apr, [facility] [id number] [place] [address] 94176- 3459 Apr, [facility] [id number] [place] [address] 15050- 4328 Apr, [facility] [id number] [place] [address] 20775- 2033 Mar, [facility] [id number] [place] [address] 84327- 4139 Mar, [facility] [id number] [place] [address] 88338- 5039 Mar, [facility] [id number] [place] [address] 58177- 7479 Mar, [facility] [id number] [place] [address] 22253- 8081 Mar, Dental examination Z01.20 [facility] [id number] [place] [address] 86015- 0622 Feb, [facility] [id number] [place] [address] 35598- 9405 Feb, [facility] [id number] [place] [address] 65040- 7372 Feb, Back pain M54.9 [facility] [id number] [place] [address] 77085- 1346 Jan, [facility] [id number] [place] [address] 63731- 4628 Jan, [facility] [address] [address]- 4295 Dec, Diabetes E11.9 ; GERD (gastroesophageal reflux disease) K21.9 ; ED (erectile dysfunction) N52.9 ; HTN (hypertension) I10 ; Insomnia G47.00 ; COPD (chronic obstructive pulmonary disease) J44.9 ; Neuropathy G62.9 and Bipolar depression F31.30 [facility] [id number] [place] [address] 45549- 3827 Dec, Type 2 diabetes mellitus with other diabetic neurological complication E11.49 and Onychomycosis B35.1 [facility] [id number] [place] [address] 98870- 5270 Dec, [facility] [id number] [place] [address] 40505- 1812 Dec, [facility] [id number] [place] [address] 69054- 0431 Dec, [facility] [id number] [place] [address] 08140- 1189 Dec, [facility] [id number] [place] [address] 00958- 0692 Nov, [facility] [id number] [place] [address] 38982- 5586 Nov, [facility] [id number] [place] [address] 28366- 6243 Oct, [facility] [id number] [place] [address] 18467- 9042 Oct, [facility] [id number] [place] [address] 13455- 9579 Oct, Back pain M54.9 [facility] [id number] [place] [address] 33928- 9130 Oct, [facility] [id number] [place] [address] 49809- 0859 Oct, [facility] [id number] [place] [address] 11185- 8476 Oct, [facility] [id number] [place] [address] 53729- 9338 Oct, HTN (hypertension) I10 [facility] [id number] [place] [address] 32567- 9988 Oct, Back pain M54.9 [facility] [id number] [place] [address] 32817- 3237 Oct, Chronic pain syndrome G89.4 [facility] [id number] [place] [address] 57447- 7021 September, Back pain M54.9 [facility] [id number] [place] [address] 95738- 4453 September, HTN (hypertension) I10 [place] [id number] [place] [address] 31706- 0134 Aug, Porokeratosis Q82.8 ; Onychomycosis B35.1 and Type 2 diabetes mellitus with other diabetic neurological complication E11.49 [place] [address] [id number] [place] [address] 68767- 2397 Aug, GERD (gastroesophageal reflux disease) K21.9 ; Diabetes E11.9 ; HTN (hypertension) I10 ; Insomnia G47.00 ; Restless legs syndrome G25.81 ; COPD (chronic obstructive pulmonary disease) J44.9 ; Back pain M54.9 and Bipolar 1 disorder F31.9 [facility] [address] [address]- 5749 Aug, [facility] [id number] [place] [address] 56427- 3781 Aug, [facility] [id number] [place] [address] 89976- 0190 Aug, [facility] [id number] [place] [address] 58983- 7331 Aug, [facility] [id number] [place] [address] 26571- 9325 Jul, [facility] [address] [place] [address]- 1353 31 Jul, 2015 [facility] [id number] [place] [address] 91092- 9390 30 Jul, 2015 [facility] [id number] [place] [address] 82227- 5897 16 Jul, 2015 [facility] [id number] [place] [address] 20317- 9754 15 Jul, 2015 [facility] [id number] [place] [address] 77572- 8798 Jul, [facility] [id number] [place] [address] 43378- 3846 Jun, Decubital ulcer L89.90 ; Diabetes E11.9 ; Back pain M54.9 ; HTN (hypertension) I10 and COPD (chronic obstructive pulmonary disease) J44.9 [facility] [id number] [place] [address] 04217- 4370 Jun, [facility] [id number] [place] [address] 43367- 4377 Jun, [facility] [id number] [place] [address] 77833- 5057 Jun, [facility] [id number] [place] [address] 98826- 8819 Jun, [facility] [id number] [place] [address] 64659- 4729 Jun, Diabetes E11.9 ; Insomnia G47.00 ; Decubital ulcer L89.90 ; GERD (gastroesophageal reflux disease) K21.9 ; Back pain M54.9 ; Superficial fungus infection of skin B36.9 and HTN (hypertension) I10 [address] [id number] [id number] 02 Jun, 2015 Dental examination Z01.20 [facility] [id number] [place] [address] 97570- 3853 May, [facility] [address] [address]- 1118 May, [facility] [id number] [place] [address] 52367- 3642 May, [facility] [id number] [place] [address] 44787- 5387 May, Diabetes E11.9 ; HTN (hypertension) I10 and Decubital ulcer L89.90 [facility] [id number] [place] [address] 54447- 4035 May, HTN (hypertension) I10 ; Decubital ulcer L89.90 and Diabetes E11.9 [facility] [id number] [place] [address] 52106- 0404 30 Apr, 2015 Diabetes E11.9 ; GERD (gastroesophageal reflux disease) K21.9 ; Back pain M54.9 ; HTN (hypertension) I10 ; Restless legs syndrome G25.81 and Decubital ulcer L89.90 [place] [address] [address]- 4466 Apr, [place] [id number] [place] [address] 56687- 9172 Apr, Diabetes E11.9 ; HTN (hypertension) I10 ; Restless legs syndrome G25.81 ; GERD (gastroesophageal reflux disease) K21.9 and COPD ( chronic obstructive pulmonary disease) J44.9 [facility] [address] [address]- 7534 Mar, [facility] [address] [address]- 6451 Mar, [facility] [id number] [place] [address] 78185- 9012 Mar, Diabetes E11.9 ; Abscess L02.91 and Restless legs syndrome G25.81 [facility] [id number] [place] [address] 96578- 9805 Mar, [facility] [id number] [place] [address] 39460- 6352 Feb, GERD (gastroesophageal reflux disease) K21.9 ; Back pain M54.9 ; ED (erectile dysfunction) N52.9 ; Diabetes E11.9 ; HTN (hypertension) I10 and Insomnia G47.00 [place] [address] 85290- 3133 Feb, [place] [address] 56044- 0311 Feb, [place] [address] 53195- 7177 Jan, [place] [address] 25786- 3527 Jan, Diabetes 250.00 ; Nondependent cannabis abuse, continuous 305.21 ; Cough 786.2 ; Schizoaffective disorder, unspecified 295.70 ; Sciatica 724.3 ; Other, mixed, or unspecified nondependent drug abuse, unspecified 305.90 ; Chronic pain 338.29 ; GERD (gastroesophageal reflux disease) 530.81 and HTN (hypertension) 401.9 [place] [id number] [place] [address] 54989- 3016 Jan, [place] [id number] [place] [address] 57131- 4781 Jan, [place] [address] 89334- 7592 Jan, Diabetes mellitus without mention of complication, type I [ juvenile type], uncontrolled 250.03 ; Schizoaffective disorder, unspecified 295.70 ; Benign essential hypertension 401.1 ; Chronic pain associated with significant psychosocial dysfunction 338.4 ; Wheezing 786.07 ; Ear ache 388.70 ; Cough 786.2 ; Sciatica 724.3 and Foot pain, bilateral 729.5 [place] [address] 27308- 4000 Dec, [facility] [address] [address]- 4466 Dec, [facility] [address] [address]- 6828 Dec, [facility] [address] [address]- 5379 Dec, [facility] [id number] [place] [address] 89709- 9699 Dec, [facility] [id number] [place] [address] 77226- 5303 Nov, Elevated liver enzymes 790.5 [facility] [id number] [place] [address] 20630- 5569 Nov, [facility] [id number] [place] [id number]- 6521 Nov, [facility] [id number] [address] Nov, [facility] [id number] [place] [address] 28810- 9659 Nov, Diabetes mellitus without mention of complication, type I [ juvenile type], uncontrolled 250.03 ; Benign essential hypertension 401.1 and Nondependent cannabis abuse, continuous 305.21 [facility] [address] [address] Oct, Cellulitis 682.9 and Benign essential hypertension 401.1 [facility] [id number] [address] Oct, [facility] [id number] [address] September, [facility] [address] [address] September, [facility] [id number] [address] Aug, [facility] [place] [facility] [address] [id number] [place] [address] 28 Aug, 2014 [facility] [place] [facility] [address] [id number] [place] [address] 14 Aug, 2014 [facility] [place] [facility] [address] [id number] [place] [address] Aug, [facility] [place] [facility] [address] [id number] [place] [address] Jul, [facility] [place] [facility] [address] [id number] [place] [address] Jul, [facility] [place] [facility] [address] [id number] [place] [address] Jul, [facility] [place] [facility] [address] [id number] [place] [address] Jul, [facility] [place] [facility] [address] [id number] [place] [address] Jul, [facility] [place] [facility] [address] [id number] [place] [address]85 Jul, [facility] [place] [facility] [address] [facility] [id number] [place] [address]655 Jun, [facility] [place] [facility] [address] [id number] [place] [address] Jun, [facility] [place] [facility] [address] [id number] [place] [address]578 Jun, [facility] [place] [facility] [address] [id number] [place] [address]39 Jun, [facility] [place] [facility] [address] [id number] [place] [address] Jun, [facility] [place] [facility] [address] [id number] [place] [address] 8513 May, [facility] [place] [facility] [address] [id number] [place] [address] May, [facility] [address] [id number] [place] [address] May, [facility] [place] [facility] [address] [id number] [place] [address]- 1645 May, [facility] [place] [facility] [address] [id number] [place] [address]- [address]90 May, [facility] [place] [facility] [address] [id number] [place] [address] May, [facility] [place] [facility] [address] [id number] [place] [address] May, [facility] [place] [facility] [address] [id number] [place] [address]- 8065 May, [facility] [place] [facility] [address] [id number] [place] [address] Apr, [facility] [address] [id number] [place] [address] Apr, [facility] [place] [facility] [address] [id number] [place] [address] Apr, [facility] [place] [facility] [address] [id number] [place] [address] Apr, [facility] [place] [facility] [address] [id number] [place] [address] Mar, [facility] [place] [facility] [address] [id number] [place] [address] Mar, [facility] [place] [facility] [address] [id number] [place] [address] Mar, [facility] [place] [facility] [address] [id number] [place] [address] Mar, [facility] [place] [facility] [address] [id number] [place] [address] Feb, [facility] [place] [facility] [address] [id number] [place] [address] Feb, [facility] [place] [facility] [address] [id number] [place] [address] Feb, [facility] [place] [facility] [address] [id number] [place] [address] Feb, [facility] [place] [facility] [address] [id number] [place] [address] Feb, [facility] [place] [facility] [address] [id number] [place] [address] Feb, [facility] [place] [facility] [address] [id number] [place] [address] Jan, [facility] [place] [facility] [address] [id number] [place] [address] Jan, [facility] [place] [facility] [address] [id number] [place] [address] Jan, [facility] [place] [facility] [address] [id number] [place] [address] Jan, [facility] [place] [facility] [address] [id number] [place] [address] Dec, [facility] [place] [facility] [address] [id number] [place] [address] Dec, [facility] [place] [facility] [address] [id number] [address] Dec, [facility] [place] [facility] [address] [id number] [place] [address] Dec, [facility] [place] [facility] [address] [id number] [place] [address] Dec, [facility] [place] [facility] [address] [id number] [place] [address] Dec, [facility] [place] [facility] [address] [id number] [place] [address] Oct, [facility] [place] [facility] [address] [id number] [place] [address] Oct, [facility] [place] [facility] [address] [id number] [place] [address] September, [facility] [place] [facility] [address] [id number] [place] [address] September, [facility] [place] [facility] [address] [id number] [place] [address] September, [facility] [place] [facility] [address] [id number] [place] [address] September, [facility] [place] [facility] [address] [id number] [place] [address] September, [facility] [place] [facility] [address] [id number] [place] [address] September, [facility] [place] [facility] [address] [id number] [place] [address] Aug, [facility] [place] [facility] [address] [id number] [place] [address] Aug, [facility] [place] [facility] [address] [id number] [place] [address] Aug, [facility] [place] [facility] [address] [id number] [place] [address] Aug, [facility] [place] [facility] [address] [id number] [place] [address] Jul, [facility] [place] [facility] [address] [id number] [place] [address] Jul, [facility] [place] [facility] [address] [id number] [place] [address] Jun, [facility] [place] [facility] [address] [id number] [place] [address] Jun, [facility] [place] [facility] [address] [id number] [place] [address] May, [facility] [address] [id number] [place] [address] May, [facility] [address] [id number] [place] [address] Jan, [facility] [address] [id number] [place] [address] Dec, [facility] [address] [id number] [place] [address] Jun, [facility] [address] [id number] [place] [address] May, [facility] [address] [id number] [place] [address] Nov, [facility] [address] [id number] [place] [address] September, [facility] [address] [id number] [place] [address]- [address] Aug, [facility] [address] [id number] [place] [address] Aug, [facility] [address] [id number] [place] [address] Aug, [facility] [address] [id number] [place] [address] Aug, [facility] [address] [id number] [place] [address] Nov, [facility] [place] [facility] [address] [id number] [place] [address] Oct, [facility] [place] [facility] [address] [id number] [place] [address] Jul, [facility] [address] [id number] [place] [address] Feb, [facility] [address] [facility] [id number] [address] Feb, [facility] [address] [id number] [address] Apr, [facility] [address] [id number] [address] Apr, [facility] [address] [id number] [address] Feb, [facility] [address] [id number] [address] Feb, [facility] [address] [id number] [address] Jul, IMMUNIZATIONS No Known Immunizations SOCIAL HISTORY Never Assessed REASON FOR VISIT Controlled Med Refill PLAN OF CARE VITAL SIGNS MEDICATIONS Unknown [...]
--- OUTSIDE RECORDS SUMMARY | 2018-09-15 22:38 | XMS REPORT ---
Author Author YVES BLEVINS [facility] Address [address] [place] [address] Care Team Providers Care Stove Mounter Name Role Phone YVES BLEVINS Unavailable PROBLEMS Type Condition ICD9-CM Code [id number] Code Onset Dates Condition Status SNOMED Code Problem HTN (hypertension) I10 Active 58840946 Problem Restless legs syndrome G25.81 Active 289976042 Problem GERD (gastroesophageal reflux disease) K21.9 Active 743533294 Problem Chronic hepatitis C without hepatic coma B18.2 Active 284507828 Problem ED (erectile dysfunction) N52.9 Active 983632456 Problem PAD (peripheral artery disease) I73.9 Active 154988742 Problem Ulcer of right foot, unspecified ulcer stage L97.519 Active 32396485 Problem 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 281951412 Problem COPD (chronic obstructive pulmonary disease) J44.9 Active 68064614 Problem DM neuro manif type II E11.49 Active 18548664 Problem Sinusitis, unspecified chronicity, unspecified location J32.9 Active 78577514 ALLERGIES No Information ENCOUNTERS Encounter Location Date Diagnosis [facility] [address] [place] [address] 41429 -8551 Dec, Acute suppurative otitis media of right ear without spontaneous rupture of tympanic membrane, recurrence not specified H66.001 and Acute nasopharyngitis J00 [facility] [address], [place] [address] 9[address] Dec, Back pain M54.9 [facility] [address] [place] [address] 59674- 4382 Dec, Foot infection L08.9 and Type 2 diabetes mellitus with other diabetic neurological complication E11.49 [facility] [address] [place] [address] 64618- 1671 Nov, Cellulitis of toe of right foot L03.031 ; Polyneuropathy in diseases classified elsewhere G63 and HTN (hypertension) I10 [facility] [id number] [place] [address], [place] [address]- 5390 Nov, [facility] [id number] [place] [address] 77018- 4158 Nov, [facility] [id number] [place] [address] 64729- 1719 Nov, Back pain M54.9 [facility] [id number] [place] [address] 40536- 1095 Nov, Shortness of breath R06.02 [facility] [id number] [place] [address] 92096- 2517 Nov, [facility] [id number] [place] [address] 25631- 3980 Oct, [facility] [id number] [place] [address] 72109- 0138 Oct, [facility] [id number] [place] [address] 80703- 1916 Oct, [facility] [id number] [place] [address] 24966- 0960 Oct, [facility] [id number] [place] [address] 32674- 5763 Oct, [facility] [id number] [place] [address] 30153- 7415 Oct, Back pain M54.9 [facility] [id number] [place] [address] 90470- 8672 Oct, Back pain M54.9 [facility] [id number] [place] [address] 88082- 5636 Oct, [facility] [id number] [place] [address] 22394- 3603 September, [facility] [address], [place] [address]- 8382 September, [facility] [id number] [place] [address] 77731- 3087 September, [facility] [id number] [place] [address] 41689- 2771 September, Type 2 diabetes mellitus with other diabetic neurological complication E11.49 and Hypotension, unspecified hypotension type I95.9 [facility] [id number] [place] [address] 95960- 0300 September, [facility] [id number] [place] [address] 25056- 7083 September, [facility] [id number] [place] [address] 93334- 4955 September, Back pain M54.9 [facility] [id number] [place] [address] 38906- 3404 Aug, [facility] [id number] [place] [address] 38644- 3021 Aug, Acute cystitis with hematuria N30.01 ; Ulcer of right foot, unspecified ulcer stage L97.519 ; HTN (hypertension) I10 ; COPD (chronic obstructive pulmonary disease) J44.9 and DM neuro manif type II E11.49 [facility] [id number] [place] [address] 11288- 9447 Aug, Back pain M54.9 [facility] [address] [address]- 2614 Jul, [facility] [id number] [place] [address] 40053- 6494 Jul, Back pain M54.9 [facility] [id number] [place] [address] 36056- 5476 Jul, [facility] [id number] [place] [address] 13346- 2941 Jul, DM neuro manif type II E11.49 and Ulcer of right foot, unspecified ulcer stage L97.519 [facility] [id number] [place] [address] 63772- 9292 Jun, [facility] [id number] [place] [address] 25047- 8181 Jun, [facility] [address] 49199- 6542 May, Type 2 diabetes mellitus with other diabetic neurological complication E11.49 ; GERD (gastroesophageal reflux disease) K21.9 and PAD ( peripheral artery disease) I73.9 [facility] [id number] [place] [address] 99142- 5823 May, Decubital ulcer L89.90 ; Diabetes E11.9 and GERD ( gastroesophageal reflux disease) K21.9 [facility] [id number] [place] [address] 34487- 4096 May, [facility] [id number] [place] [address] 22161- 9302 Apr, [facility] [id number] [place] [address] 20635- 9874 Mar, [facility] [id number] [place] [address] 97870- 8330 Mar, [facility] [id number] [place] [address] 51672- 5777 Feb, [facility] [id number] [place] [address] 45210- 6747 Feb, [facility] [id number] [place] [address] 46900- 0497 Jan, [facility] [id number] [place] [address] 70978- 0085 Jan, HTN (hypertension) I10 [facility] [address] [place] [address]- 0903 Jan, [facility] [id number] [place] [address] 33361- 2688 Dec, Back pain M54.9 [facility] [id number] [place] [address] 58067- 5616 Dec, Back pain M54.9 [facility] [id number] [place] [address] 45601 -9703 Dec, Encounter for immunization Z23 and Puncture wound of right foot, initial encounter S91.331A [facility] [id number] [place] [address] 60924- 3722 Dec, [facility] [id number] [place] [address] 21363- 2981 Nov, [facility] [id number] [place] [address] 94865- 9787 Nov, COPD (chronic obstructive pulmonary disease) J44.9 [facility] [id number] [place] [address] 61764- 3000 Nov, [facility] [id number] [place] [address] 77679- 3678 Oct, [facility] [id number] [place] [address] 34803- 5984 Oct, [facility] [id number] [place] [address] 29009- 8637 September, Onychomycosis B35.1 and DM neuro manif type II E11.49 [facility] [id number] [place] [address] 42153- 4833 September, [facility] [id number] [place] [address] 35573- 9743 Aug, [facility] [id number] [place] [address] 64626- 9190 Jul, Sinusitis, unspecified chronicity, unspecified location J32.9 and Cough R05 [facility] [id number] [place] [address] 85311- 2818 13 Jul, 2016 Back pain M54.9 [facility] [id number] [place] [address] 70968- 2999 14 Jun, 2016 Back pain M54.9 [facility] [id number] [place] [address] 26602- 1424 06 Jun, 2016 COPD (chronic obstructive pulmonary disease) J44.9 [facility] [id number] [place] [address] 08339- 6261 17 May, 2016 [facility] [id number] [place] [address] 65626- 2392 17 May, 2016 [facility] [id number] [place] [address] 34910- 3468 May, Back pain M54.9 [facility] [id number] [place] [address] 33463- 4160 16 May, 2016 [place] [id number] [place] [address] 15154- 3073 May, [facility] [id number] [place] [address] 84536- 9601 12 May, 2016 Diabetes E11.9 [facility] [id number] [place] [address] 85616- 4311 11 May, 2016 Diabetes E11.9 ; GERD [...] for hepatitis C screening test Z11.59 [facility] [id number] [place] [address] 44512- 3049 May, HTN (hypertension) I10 [facility] [address] [id number] [place] [address]- 8932 Apr, [facility] [address] [id number] [place] [address]- 9035 Apr, [facility] [address] [id number] [place] [address]- 8506 Apr, [facility] [address] [id number] [place] [address], [place] [address]- 8982 Apr, [facility] [address] [id number] [place] [address], [place] [address]- 8169 Apr, [facility] [address] [facility] [id number] [place] [address], [place] [address]- 1238 Mar, [facility] [id number] [place] [address], [place] [address]- 9701 Mar, [facility] [address] [facility] [id number] [place] [address]- 7730 Mar, [facility] [address] [facility] [id number] [place] [address] 43454- 0458 Mar, [facility] [id number], [place] [address]- 5446 Mar, Dental examination Z01.20 [facility] [id number], [place] [address]- 2928 Feb, [facility] [address] [facility] [id number], [place] [address]- 7035 Feb, [facility] [address] [facility] [id number] [address]- 9985 Feb, Back pain M54.9 [facility] [address] [facility] [id number], [place] [address]- 1582 Jan, [facility] [address], [place] [address]- 6973 Jan, [facility] [address], [place] [address]- 4309 Dec, Diabetes E11.9 ; GERD (gastroesophageal reflux disease) K21.9 ; ED (erectile dysfunction) N52.9 ; HTN (hypertension) I10 ; Insomnia G47.00 ; COPD (chronic obstructive pulmonary disease) J44.9 ; Neuropathy G62.9 and Bipolar depression F31.30 [facility] [id number] [place] [address] 18862- 6959 Dec, Type 2 diabetes mellitus with other diabetic neurological complication E11.49 and Onychomycosis B35.1 [facility] [id number] [place] [address] 54060- 0351 Dec, [facility] [id number] [place] [address] 70107- 6827 Dec, [facility] [id number] [place] [address] 06025- 3759 Dec, [facility] [id number] [place] [address] 84344- 5574 Dec, [facility] [id number] [place] [address] 58783- 5082 Nov, [facility] [id number] [place] [address] 91904- 0360 Nov, [facility] [id number] [place] [address] 34206- 7255 Oct, [facility] [id number] [place] [address] 16705- 8503 Oct, [facility] [id number] [place] [address] 86306- 0492 Oct, Back pain M54.9 [facility] [id number] [place] [address] 02529- 5562 Oct, [facility] [id number] [place] [address] 40321- 4987 Oct, [facility] [address], [place] [address]- 0230 Oct, [facility] [id number] [place] [address] 17790- 4712 Oct, HTN (hypertension) I10 [facility] [id number] [place] [address] 64127- 5388 Oct, Back pain M54.9 [facility] [id number] [place] [address] 91348- 6966 Oct, Chronic pain syndrome G89.4 [place] [address] 55456- 9181 September, Back pain M54.9 [facility] [id number] [place] [address] 52094- 2597 September, HTN (hypertension) I10 [place] [id number] [place] [address] 42703- 0523 Aug, Porokeratosis Q82.8 ; Onychomycosis B35.1 and Type 2 diabetes mellitus with other diabetic neurological complication E11.49 [place] [id number] [place] [address] 86809- 7709 Aug, GERD (gastroesophageal reflux disease) K21.9 ; Diabetes E11.9 ; HTN (hypertension) I10 ; Insomnia G47.00 ; Restless legs syndrome G25.81 ; COPD (chronic obstructive pulmonary disease) J44.9 ; Back pain M54.9 and Bipolar 1 disorder F31.9 [place] [id number] [place] [address] 18719- 6446 Aug, [place] [id number] [place] [address] 62786- 9231 Aug, [place] [id number] [place] [address] 40954- 6010 Aug, [place] [address] [place] [address]- 0900 Aug, [facility] [address], [place] [address]- 5412 Jul, [facility] [address], [place] [address]- 2793 Jul, [facility] [address] [place] [address] 87971- 1354 30 Jul, 2015 [facility] [address] [place] [address] 33639- 3997 16 Jul, 2015 [facility] [id number] [place] [address] 39551- 3034 Jul, [facility] [id number] [place] [address] 62924- 9005 Jul, [facility] [id number] [place] [address] 35152- 7523 Jun, Decubital ulcer L89.90 ; Diabetes E11.9 ; Back pain M54.9 ; HTN (hypertension) I10 and COPD (chronic obstructive pulmonary disease) J44.9 [facility] [address], [place] [address]- 5615 Jun, [facility] [address], [place] [address]- 9459 Jun, [facility] [address], [place] [address]- 8121 Jun, [facility] [address], [place] [address]- 8127 Jun, [facility] [address], [place] [address]- 4160 Jun, Diabetes E11.9 ; Insomnia G47.00 ; Decubital ulcer L89.90 ; GERD (gastroesophageal reflux disease) K21.9 ; Back pain M54.9 ; Superficial fungus infection of skin B36.9 and HTN (hypertension) I10 [address] [id number] [id number] Jun, Dental examination Z01.20 [facility] [address], [place] [address]- 6696 May, [facility] [address], [place] [address]- 0788 May, [place] [address], [place] [address]- 0815 May, [facility] [address], [place] [address]- 1450 May, Diabetes E11.9 ; HTN (hypertension) I10 and Decubital ulcer L89.90 [place] [address], [place] [address]- 9823 May, HTN (hypertension) I10 ; Decubital ulcer L89.90 and Diabetes E11.9 [place] [address], [place] [address]- 6416 30 Apr, 2015 Diabetes E11.9 ; GERD (gastroesophageal reflux disease) K21.9 ; Back pain M54.9 ; HTN (hypertension) I10 ; Restless legs syndrome G25.81 and Decubital ulcer L89.90 [place] [address], [place] [address]- 7182 Apr, [place] [address], [place] [address]- 0189 Apr, Diabetes E11.9 ; HTN (hypertension) I10 ; Restless legs syndrome G25.81 ; GERD (gastroesophageal reflux disease) K21.9 and COPD ( chronic obstructive pulmonary disease) J44.9 [facility] [address], [place] [address]- 8566 Mar, [facility] [address], [place] [address]- 8173 Mar, [place] [id number] [place] [address] 21990- 3890 Mar, Diabetes E11.9 ; Abscess L02.91 and Restless legs syndrome G25.81 [place] [id number] [place] [address] 30588- 1813 Mar, [place] [id number] [place] [address] 50711- 6894 Feb, GERD (gastroesophageal reflux disease) K21.9 ; Back pain M54.9 ; ED (erectile dysfunction) N52.9 ; Diabetes E11.9 ; HTN (hypertension) I10 and Insomnia G47.[address] 29525- 9464 Feb, [place] [address] 86143- 9357 Feb, [place] [address] 66759- 3946 Jan, [place] [id number] [place] [address] 43991- 3489 Jan, Diabetes 250.00 ; Nondependent cannabis abuse, continuous 305.21 ; Cough 786.2 ; Schizoaffective disorder, unspecified 295.70 ; Sciatica 724.3 ; Other, mixed, or unspecified nondependent drug abuse, unspecified 305.90 ; Chronic pain 338.29 ; GERD (gastroesophageal reflux disease) 530.81 and HTN (hypertension) 401.9 [place] [id number] [place] [address] 54429- 3262 Jan, [place] [id number] [place] [address] 54331- 2812 Jan, [place] [id number] [place] [address] 51462- 1061 Jan, Diabetes mellitus without mention of complication, type I [ juvenile type], uncontrolled 250.03 ; Schizoaffective disorder, unspecified 295.70 ; Benign essential hypertension 401.1 ; Chronic pain associated with significant psychosocial dysfunction 338.4 ; Wheezing 786.07 ; Ear ache 388.70 ; Cough 786.2 ; Sciatica 724.3 and Foot pain, bilateral 729.5 [facility] [id number] [place] [address] 68582- 0166 Dec, [facility] [id number] [place] [address] 13618- 2135 Dec, [facility] [address] 65437- 5068 Dec, [facility] [id number] [place] [address] 80060- 3247 Dec, [facility] [address] 18804- 3253 Dec, [facility] [address] 89109- 0716 Nov, Elevated liver enzymes 790.5 [facility] [id number] [place] [address] 44497- 8774 Nov, [facility] [id number] [place] [address] 55520- 3104 Nov, [facility] [id number] [place] [address] 75897- 5675 Nov, [facility] [id number] [place] [address] 38939- 1762 Nov, Diabetes mellitus without mention of complication, type I [ juvenile type], uncontrolled 250.03 ; Benign essential hypertension 401.1 and Nondependent cannabis abuse, continuous 305.21 [facility] [id number] [place] [address] 49347- 5159 Oct, Cellulitis 682.9 and Benign essential hypertension 401.1 [facility] [id number] [place] [address] 37858- 4169 Oct, [facility] [address] 51707- 4761 September, [facility] [place] [facility] [address] [id number] [place] [address]- 5382 September, [facility] [place] [facility] [address] [id number] [place] [address] Aug, [facility] [place] [facility] [address] [id number] [place] [address] Aug, [facility] [place] [facility] [address] [id number] [place] [address] Aug, [facility] [place] [facility] [address] [id number] [place] [address] Aug, [facility] [place] [facility] [address] [id number] [place] [address] Jul, [facility] [place] [facility] [address] [id number] [place] [address] Jul, [facility] [place] [facility] [address] [id number] [place] [address] Jul, [facility] [place] [facility] [address] [id number] [place] [address] Jul, [facility] [place] [facility] [address] [id number] [place] [address] Jul, [facility] [place] [facility] [address] [id number] [place] [address] Jul, [facility] [place] [facility] [address] [id number] [place] [address] Jun, [facility] [place] [facility] [address] [id number] [place] [address] Jun, [facility] [place] [facility] [address] [id number] [place] [address] Jun, [facility] [place] [facility] [address] [id number] [place] [address] Jun, [facility] [place] [facility] [address] [id number] [place] [address] Jun, [facility] [place] [facility] [address] [id number] [place] [address] May, [facility] [place] [facility] [address] [id number] [place] [address] May, [facility] [place] [facility] [address] [id number] [place] [address] May, [facility] [place] [facility] [address] [id number] [place] [address] May, [facility] [place] [facility] [address] [id number] [place] [address] May, [facility] [place] [facility] [address] [id number] [place] [address] May, [facility] [place] [facility] [address] [id number] [place] [address] May, [facility] [place] [facility] [address] [id number] [place] [address] May, [facility] [place] [facility] [address] [id number] [place] [address] Apr, [facility] [place] [facility] [address] [id number] [place] [address] Apr, [facility] [place] [facility] [address] [id number] [place] [address] Apr, [facility] [place] [facility] [address] [id number] [place] [address] Apr, [facility] [place] [facility] [address] [id number] [place] [address] Mar, [facility] [place] [facility] [address] [id number] [place] [address] Mar, [facility] [place] [facility] [address] [id number] [place] [address] Mar, [facility] [place] [facility] [address] [id number] [place] [address] Mar, [facility] [place] [facility] [address] [id number] [place] [address] Feb, [facility] [place] [facility] [address] [id number] [place] [address] Feb, [facility] [place] [facility] [address] [id number] [place] [address] Feb, [facility] [place] [facility] [address] [id number] [place] [address] Feb, [facility] [place] [facility] [address] [id number] [place] [address] Feb, [facility] [place] [facility] [address] [id number] [place] [address] Feb, [facility] [place] [facility] [address] [id number] [place] [address] Jan, [facility] [place] [facility] [address] [id number] [place] [address] Jan, [facility] [place] [facility] [address] [id number] [place] [address] Jan, [facility] [place] [facility] [address] [id number], [place] [address] Jan, [facility] [place] [facility] [address] [id number], [place] [address] Dec, [facility] [place] [facility] [address] [id number] [place] [address] Dec, [facility] [place] [facility] [address] [id number] [place] [address] Dec, [facility] [place] [facility] [address] [id number] [place] [address] Dec, [facility] [place] [facility] [address] [id number] [place] [address] Dec, [facility] [place] [facility] [address] [id number] [place] [address] Dec, [facility] [place] [facility] [address] [id number] [place] [address] Oct, [facility] [place] [facility] [address] [id number] [place] [address] Oct, [facility] [place] [facility] [address] [id number] [place] [address] September, [facility] [place] [facility] [address] [id number] [place] [address] September, [facility] [place] [facility] [address] [id number] [place] [address] September, [facility] [place] [facility] [address] [id number] [place] [address] September, [facility] [place] [facility] [address] [id number] [place] [address]60 September, [facility] [place] [facility] [address] [id number] [place] [address] September, [facility] [place] [facility] [address] [id number] [place] [address] Aug, [facility] [place] [facility] [address] [id number] [place] [address] Aug, [facility] [place] [facility] [address] [id number] [place] [address] Aug, [facility] [place] [facility] [address] [id number] [place] [address] Aug, [facility] [place] [facility] [address] [id number] [place] [address] Jul, [facility] [place] [facility] [address] [id number] [place] [address] Jul, [facility] [place] [facility] [address] [id number] [place] [address] Jun, [facility] [address] [id number] [place] [address] Jun, [facility] [address] [id number] [place] [address] May, [facility] [address] [id number] [place] [address] May, [facility] [address] [id number] [place] [address] Jan, [facility] [place] [facility] [address] [id number] [place] [address] Dec, [facility] [address] [id number] [place] [address] Jun, [facility] [address] [id number] [place] [address] May, [facility] [address] [id number] [place] [address] Nov, [facility] [address] [id number] [place] [address] September, [facility] [address] [id number] [place] [address] Aug, [facility] [place] [facility] [address] [id number] [place] [address] 47[address] Aug, [facility] [place] [facility] [address] [id number] [place] [address] Aug, [facility] [place] [facility] [address] [id number] [place] [address]- [address] Aug, [facility] [place] [facility] [address] [id number] [place] [address] Nov, [facility] [place] [facility] [address] [id number], [place] [address] Oct, [facility] [address] [id number] [address] Jul, [facility] [address] [id number], [place] [address] Feb, [facility] [address] [id number], [place] [address] Feb, [facility] [id number], [place] [address] Apr, [facility] [address] [id number], [place] [address] Apr, [facility] [id number], [place] [address] Feb, [facility] [id number], [place] [address] Feb, [facility] [address] [id number], [place] [address] Jul, IMMUNIZATIONS No Known Immunizations SOCIAL HISTORY Never Assessed REASON FOR VISIT Hydrocodone 10/16 PLAN OF CARE VITAL SIGNS MEDICATIONS Medication Instructions Dosage Frequency Start Date End Date Duration Status Hydrocodone-Ibuprofen 7.5-200 MG Orally 3 times a day 1 tablet as needed 8h Oct, 28 days Active RESULTS No Results PROCEDURES [...]
--- OUTSIDE RECORDS SUMMARY | 2018-09-15 22:39 | XMS REPORT ---
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 Name Role Phone YVES BLEVINS Unavailable PROBLEMS Type Condition ICD9-CM Code SPO67-IH Code Onset Dates Condition Status SNOMED Code Problem HTN (hypertension) I10 Active 01426667 Problem Restless legs syndrome G25.81 Active 452313234 Problem GERD (gastroesophageal reflux disease) K21.9 Active 775908683 Problem Chronic hepatitis C without hepatic coma B18.2 Active 068977573 Problem ED (erectile dysfunction) N52.9 Active 320696245 Problem PAD (peripheral artery disease) I73.9 Active 821624159 Problem Ulcer of right foot, unspecified ulcer stage L97.519 Active 68518137 Problem 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 516980401 Problem COPD (chronic obstructive pulmonary disease) J44.9 Active 71558480 Problem DM neuro manif type II E11.49 Active 64664405 Problem Sinusitis, unspecified chronicity, unspecified location J32.9 Active 34893957 ALLERGIES Substance Reaction Event Type Date Status Latex Unknown Drug Allergy September, Active Thorazine Unknown Drug Allergy September, Active Haldol Unknown Drug Allergy September, Active ENCOUNTERS Encounter Location Date Diagnosis [facility] [id number] [place] [address] 07666- 7675 Dec, Back pain M54.9 [facility] [id number] [place] [address] 78488- 0371 Dec, 2018 Foot infection L08.9 and Type 2 diabetes mellitus with other diabetic neurological complication E11.49 [facility] [id number] [address] 2779 Nov, Cellulitis of toe of right foot L03.031 ; Polyneuropathy in diseases classified elsewhere G63 and HTN (hypertension) I10 [facility] [address] [facility] [id number] [place] [address] 6248 Nov, [facility] [address] [facility] [id number] [place] [address] 0873 Nov, [facility] [address] [facility] [id number] [place] [address] 7561 Nov, Back pain M54.9 [facility] [address] [facility] [id number] [place] [address], [place] [address] 5979 Nov, Shortness of breath R06.02 [facility] [address] [facility] [id number] [place] [address], [place] [address] 3618 Nov, [facility] [address] [facility] [id number] [place] [address]- 3847 Oct, [facility] [id number] [place] [address], [place] [address]- 2448 Oct, [facility] [address] [facility] [id number] [place] [address]- 1715 Oct, [facility] [id number] [place] [address] 9464 Oct, [facility] [id number] [address] 5349 Oct, [facility] [address] [address] 4218 Oct, Back pain M54.9 [facility] [address] [facility] [id number] [address] 2950 Oct, Back pain M54.9 [facility] [address] [facility] [id number] [place] [address]- 4107 Oct, [facility] [address] [facility] [id number] [address] 9682 September, [facility] [id number] [address] 1031 September, [facility] [id number] [place] [address] 16646- 8602 September, [facility] [id number] [place] [address] 95342- 9913 September, Type 2 diabetes mellitus with other diabetic neurological complication E11.49 and Hypotension, unspecified hypotension type I95.9 [facility] [id number] [place] [address] 57958- 6236 September, [facility] [id number] [place] [address] 91790- 8724 September, [facility] [id number] [place] [address] 87231- 7182 September, Back pain M54.9 [facility] [id number] [place] [address] 19324- 2891 Aug, [facility] [id number] [place] [address] 64883- 5626 Aug, Acute cystitis with hematuria N30.01 ; Ulcer of right foot, unspecified ulcer stage L97.519 ; HTN (hypertension) I10 ; COPD (chronic obstructive pulmonary disease) J44.9 and DM neuro manif type II E11.49 [facility] [id number] [place] [address] 59936- 9791 Aug, Back pain M54.9 [facility] [id number] [place] [address] 86435- 2138 Jul, [facility] [id number] [place] [address] 39818- 3627 Jul, Back pain M54.9 [facility] [id number] [place] [address] 76857- 3912 Jul, [facility] [id number] [place] [address] 24835- 0303 Jul, DM neuro manif type II E11.49 and Ulcer of right foot, unspecified ulcer stage L97.519 [facility] [address] [address]- 6191 Jun, [facility] [id number] [place] [address] 18569- 4975 15 Jun, 2017 [facility] [id number] [place] [address] 14972- 7640 May, Type 2 diabetes mellitus with other diabetic neurological complication E11.49 ; GERD (gastroesophageal reflux disease) K21.9 and PAD ( peripheral artery disease) I73.9 [facility] [id number] [place] [address] 37070- 7549 17 May, 2017 Decubital ulcer L89.90 ; Diabetes E11.9 and GERD ( gastroesophageal reflux disease) K21.9 [facility] [id number] [place] [address] 80235- 2579 May, [facility] [id number] [place] [address] 64226- 8153 Apr, [facility] [id number] [place] [address] 83718- 7510 Mar, [facility] [id number] [place] [address] 88368- 9577 Mar, [facility] [address] [address]- 1663 Feb, [facility] [id number] [place] [address] 52861- 8966 Feb, [facility] [id number] [place] [address] 84907- 4360 29 Jan, 2017 [facility] [id number] [place] [address] 15834- 5757 29 Jan, 2017 HTN (hypertension) I10 [facility] [address] [address]- 3540 25 Jan, 2017 [facility] [address] [address]- 5542 Dec, Back pain M54.9 [facility] [id number] [place] [address] 79049- 9622 Dec, Back pain M54.9 [facility] [id number] [place] [address] 91834 -4809 Dec, Encounter for immunization Z23 and Puncture wound of right foot, initial encounter S91.331A [facility] [id number] [place] [address] 39247- 0981 Dec, [facility] [id number] [place] [address] 13317- 3665 Nov, [facility] [id number] [place] [address] 47615- 9034 Nov, COPD (chronic obstructive pulmonary disease) J44.9 [facility] [id number] [place] [address] 09112- 1800 Nov, [facility] [id number] [place] [address] 67495- 4189 Oct, [facility] [id number] [place] [address] 18933- 4866 Oct, [facility] [id number] [place] [address] 47811- 8563 September, Onychomycosis B35.1 and DM neuro manif type II E11.49 [facility] [id number] [place] [address] 09270- 1061 September, [facility] [id number] [place] [address] 93871- 9350 Aug, [facility] [id number] [place] [address] 80599- 5511 Jul, Sinusitis, unspecified chronicity, unspecified location J32.9 and Cough R05 [facility] [id number] [place] [address] 11447- 7167 13 Jul, 2016 Back pain M54.9 [facility] [id number] [place] [address] 02418- 8199 14 Jun, 2016 Back pain M54.9 [facility] [id number] [place] [address] 72105- 0060 06 Jun, 2016 COPD (chronic obstructive pulmonary disease) J44.9 [facility] [id number] [place] [address] 03764- 9637 17 May, 2016 [facility] [id number] [place] [address] 41250- 3834 May, [facility] [id number] [place] [address] 38665- 3769 May, Back pain M54.9 [facility] [id number] [place] [address] 15853- 6100 16 May, 2016 [facility] [id number] [place] [address] 42566- 5689 13 May, 2016 [facility] [id number] [place] [address] 56336- 2618 May, Diabetes E11.9 [facility] [id number] [place] [address] 31810- 1428 11 May, 2016 Diabetes E11.9 ; GERD [...] [facility] [id number] [place] [address] 63622- 9998 04 May, 2016 HTN (hypertension) I10 [facility] [id number] [place] [address] 03956- 8048 Apr, [facility] [address] [id number] [place] [address]- 5993 Apr, [facility] [address] [id number] [address]- 0680 Apr, [facility] [address] [facility] [id number] [place] [address]- 4178 Apr, [facility] [address] [facility] [id number] [place] [address] 65961- 3564 Apr, [facility] [address] [facility] [id number] [place] [address], [place] [address]- 0355 Mar, [facility] [address] [facility] [id number] [place] [address], [place] [address]- 1161 Mar, [facility] [id number] [place] [address] 35287- 8677 Mar, [facility] [id number] [place] [address]- 2124 Mar, [facility] [id number] [place] [address] 67047- 8558 Mar, Dental examination Z01.20 [facility] [id number] [address]- 5102 Feb, [facility] [address] [address]- 0850 Feb, [facility] [address] [address]- 0245 Feb, Back pain M54.9 [facility] [address] [facility] [id number] [place] [address]- 8961 Jan, [facility] [address] [facility] [id number] [address]- 0349 Jan, [facility] [address] [address]- 9835 Dec, Diabetes E11.9 ; GERD (gastroesophageal reflux disease) K21.9 ; ED (erectile dysfunction) N52.9 ; HTN (hypertension) I10 ; Insomnia G47.00 ; COPD (chronic obstructive pulmonary disease) J44.9 ; Neuropathy G62.9 and Bipolar depression F31.30 [facility] [id number] [place] [address] 36631- 3006 Dec, Type 2 diabetes mellitus with other diabetic neurological complication E11.49 and Onychomycosis B35.1 [facility] [id number] [place] [address] 91373- 1137 Dec, [facility] [address] 66922- 6952 Dec, [facility] [id number] [place] [address] 95044- 2557 Dec, [facility] [id number] [place] [address] 77436- 0249 Dec, [facility] [id number] [place] [address] 81222- 6829 Nov, [facility] [id number] [place] [address] 97510- 5575 Nov, [facility] [id number] [place] [address] 55048- 3718 Oct, [facility] [id number] [place] [address] 92186- 9674 Oct, [facility] [id number] [place] [address] 07432- 9609 Oct, Back pain M54.9 [facility] [id number] [place] [address] 93893- 1206 Oct, [facility] [id number] [place] [address] 41974- 4655 Oct, [facility] [id number] [place] [address] 89007- 9639 Oct, [facility] [address] [address]- 3513 Oct, HTN (hypertension) I10 [facility] [id number] [place] [address] 33849- 4204 Oct, Back pain M54.9 [facility] [id number] [place] [address] 27716- 7969 Oct, Chronic pain syndrome G89.4 [place] [facility] [id number] [place] [address] 14909- 5705 September, Back pain M54.9 [place] [id number] [place] [address] 91172- 9886 September, HTN (hypertension) I10 [place] [facility] [id number] [place] [address] 13060- 6043 Aug, Porokeratosis Q82.8 ; Onychomycosis B35.1 and Type 2 diabetes mellitus with other diabetic neurological complication E11.49 [place] [facility] [id number] [place] [address] 70075- 9430 Aug, GERD (gastroesophageal reflux disease) K21.9 ; Diabetes E11.9 ; HTN (hypertension) I10 ; Insomnia G47.00 ; Restless legs syndrome G25.81 ; COPD (chronic obstructive pulmonary disease) J44.9 ; Back pain M54.9 and Bipolar 1 disorder F31.9 [facility] [id number] [place] [address] 96006- 0538 Aug, [facility] [id number] [place] [address] 60169- 8309 Aug, [facility] [id number] [place] [address] 78946- 3073 Aug, [facility] [address] [address]- 4829 Aug, [facility] [id number] [address]- 4528 31 Jul, 2015 [facility] [id number] [place] [address] 99704- 9282 31 Jul, 2015 [facility] [id number] [place] [address] 71817- 1968 30 Jul, 2015 [facility] [id number] [place] [address] 07904- 4836 16 Jul, 2015 [facility] [id number] [place] [address] 21216- 0686 15 Jul, 2015 [facility] [id number] [place] [address] 44097- 2480 Jul, [facility] [id number] [place] [address] 49212- 4113 17 Jun, 2015 Decubital ulcer L89.90 ; Diabetes E11.9 ; Back pain M54.9 ; HTN (hypertension) I10 and COPD (chronic obstructive pulmonary disease) J44.9 [facility] [id number] [place] [address] 18804- 6839 Jun, [facility] [id number] [place] [address] 51085- 4525 Jun, [facility] [address] [address]- 7427 Jun, [facility] [id number] [place] [address] 28482- 4914 Jun, [facility] [address] [address]- 8539 Jun, Diabetes E11.9 ; Insomnia G47.00 ; Decubital ulcer L89.90 ; GERD (gastroesophageal reflux disease) K21.9 ; Back pain M54.9 ; Superficial fungus infection of skin B36.9 and HTN (hypertension) I10 [address] [id number] [id number] Jun, Dental examination Z01.20 [facility] [address] [address]- 8122 May, [facility] [id number] [place] [address] 45362- 2548 May, [facility] [id number] [place] [address] 83235- 1116 May, [place] [id number] [place] [address] 31590- 2620 May, Diabetes E11.9 ; HTN (hypertension) I10 and Decubital ulcer L89.90 [place] [id number] [place] [address] 38222- 8693 May, HTN (hypertension) I10 ; Decubital ulcer L89.90 and Diabetes E11.9 [place] [id number] [place] [address] 50054- 0256 Apr, Diabetes E11.9 ; GERD (gastroesophageal reflux disease) K21.9 ; Back pain M54.9 ; HTN (hypertension) I10 ; Restless legs syndrome G25.81 and Decubital ulcer L89.90 [place] [id number] [place] [address] 85297- 7322 Apr, [place] [facility] [id number] [place] [address] 56653- 9133 Apr, Diabetes E11.9 ; HTN (hypertension) I10 ; Restless legs syndrome G25.81 ; GERD (gastroesophageal reflux disease) K21.9 and COPD ( chronic obstructive pulmonary disease) J44.9 [place] [id number] [place] [address] 44376- 7853 Mar, [place] [id number] [place] [address] 43866- 4454 Mar, [facility] [id number] [place] [address] 57154- 4944 Mar, Diabetes E11.9 ; Abscess L02.91 and Restless legs syndrome G25.81 [place] [place] [id number] [place] [address] 29148- 2195 Mar, [facility] [id number] [place] [address] 02261- 8913 Feb, GERD (gastroesophageal reflux disease) K21.9 ; Back pain M54.9 ; ED (erectile dysfunction) N52.9 ; Diabetes E11.9 ; HTN (hypertension) I10 and Insomnia G47.00 [place] [place] [id number] [place] [address] 92554- 3998 Feb, [facility] [address] [address]- [address]779 Feb, [facility] [place] [id number] [place] [address] 08043- 6450 Jan, [facility] [id number] [place] [address] 05099- 4965 Jan, Diabetes 250.00 ; Nondependent cannabis abuse, continuous 305.21 ; Cough 786.2 ; Schizoaffective disorder, unspecified 295.70 ; Sciatica 724.3 ; Other, mixed, or unspecified nondependent drug abuse, unspecified 305.90 ; Chronic pain 338.29 ; GERD (gastroesophageal reflux disease) 530.81 and HTN (hypertension) 401.9 [facility] [place] [id number] [place] [address] 47354- 5661 Jan, [facility] [place] [id number] [place] [address] 37750- 5079 Jan, [place] [place] [id number] [place] [address] 98686- 9202 Jan, Chronic pain associated with significant psychosocial dysfunction 338.4 ; Diabetes mellitus without mention of complication, type I [ juvenile type], uncontrolled 250.03 ; Benign essential hypertension 401.1 ; Schizoaffective disorder, unspecified 295.70 ; Wheezing 786.07 ; Ear ache 388.70 ; Cough 786.2 ; Sciatica 724.3 and Foot pain, bilateral 729.5 [facility] [id number] [place] [address] 43839- 0866 Dec, [facility] [id number] [place] [address] 59196- 8412 Dec, [facility] [id number] [place] [address] 57409- 1878 Dec, [facility] [id number] [place] [address] 46657- 1092 Dec, [facility] [id number] [place] [address] 93553- 9383 Dec, [facility] [id number] [place] [address] 68846- 4728 Nov, Elevated liver enzymes 790.5 [facility] [address] [address]226- 2021 Nov, [facility] [id number] [place] [address] 60303- 1198 Nov, [facility] [id number] [place] [address] 98764- 4020 Nov, [facility] [id number] [place] [place] [id number]- [address]8 Nov, Benign essential hypertension 401.1 ; Diabetes mellitus without mention of complication, type I [juvenile type], uncontrolled 250.03 and Nondependent cannabis abuse, continuous 305.21 [facility] [id number] [place] [address]- 0473 Oct, Cellulitis 682.9 and Benign essential hypertension 401.1 [facility] [id number] [place] [address] 35724- 9094 Oct, [facility] [id number] [place] [address]- 0284 September, [facility] [id number] [place] [address]88- 7046 September, [facility] [place] [facility] [address] [id number] [place] [address] 4477 Aug, [facility] [place] [facility] [address] [id number] [place] [address] 1662 Aug, [facility] [place] [facility] [address] [facility] [id number] [place] [address] 9415 Aug, [facility] [place] [facility] [address] [id number] [place] [address] 0647 Aug, [facility] [place] [facility] [address] [id number] [place] [address] 3965 Jul, [facility] [place] [facility] [address] [facility] [id number] [place] [address]- 4976 Jul, [facility] [place] [facility] [address] [facility] [id number] [place] [address]- 2036 Jul, [facility] [place] [facility] [address] [id number] [place] [address]- 2383 Jul, [facility] [place] [facility] [address] [id number] [place] [address] 9699 Jul, [facility] [place] [facility] [address] [facility] [id number] [place] [address]- 8343 Jul, [facility] [place] [facility] [address] [id number] [place] [address]- 8546 Jun, [facility] [place] [facility] [address] [id number] [place] [address]- 2077 Jun, [facility] [place] [facility] [address] [id number] [place] [address]- 2429 Jun, [facility] [place] [facility] [address] [facility] [id number] [place] [address]- 7466 Jun, [facility] [place] [facility] [address] [facility] [id number] [place] [address]- 8974 Jun, [facility] [place] [facility] [address] [id number] [place] [address]- 2655 May, [facility] [place] [facility] [address] [id number] [place] [address]- 2106 May, [facility] [place] [facility] [address] [id number] [place] [address]- 5573 May, [facility] [place] [facility] [address] [id number] [place] [address]- 1017 May, [facility] [place] [facility] [address] [id number] [place] [address]- 1511 May, [facility] [place] [facility] [address] [id number] [place] [address]- 9139 May, [facility] [place] [facility] [address] [id number] [place] [address] 1985 May, [facility] [place] [facility] [address] [id number] [place] [address]- 4371 May, [facility] [place] [facility] [address] [id number] [place] [address]- 5653 Apr, [facility] [place] [facility] [address] [id number] [place] [address]- 9450 Apr, [facility] [place] [facility] [address] [id number] [place] [address]- 9276 Apr, [facility] [place] [facility] [address] [id number] [place] [address]- 3579 Apr, [facility] [place] [facility] [address] [id number] [place] [address]- 5580 Mar, [facility] [place] [facility] [address] [id number] [place] [address]- 5065 Mar, [facility] [place] [facility] [address] [id number] [place] [address]- 6733 Mar, [facility] [place] [facility] [address] [id number] [place] [address] 7045 Mar, [facility] [place] [facility] [address] [id number] [place] [address]- 4838 Feb, [facility] [place] [facility] [address] [id number] [place] [address]- 6179 Feb, [facility] [place] [facility] [address] [id number] [place] [address]- 7941 Feb, [facility] [place] [facility] [address] [id number] [place] [address]- 5021 Feb, [facility] [place] [facility] [address] [id number] [place] [address]- 6797 Feb, [facility] [place] [facility] [address] [id number] [place] [address]- 8609 Feb, [facility] [place] [facility] [address] [id number] [place] [address]- 1874 Jan, [facility] [place] [facility] [address] [id number] [place] [address]- 3081 Jan, [facility] [place] [facility] [address] [id number] [place] [address]- 4820 Jan, [facility] [place] [facility] [address] [id number] [place] [address]- 7390 Jan, [facility] [place] [facility] [address] [id number] [address] 0043 Dec, [facility] [place] [facility] [address] [id number] [place] [address]- 3669 Dec, [facility] [place] [facility] [address] [id number] [place] [address]- 4233 Dec, [facility] [place] [facility] [address] [id number] [place] [address]- 4654 Dec, [facility] [place] [facility] [address] [id number] [place] [address]- 6615 Dec, [facility] [place] [facility] [address] [id number] [place] [address]- 2832 Dec, [facility] [place] [facility] [address] [id number] [place] [address]- 5916 Oct, [facility] [place] [facility] [address] [id number] [place] [address]- 8713 Oct, [facility] [place] [facility] [address] [id number] [place] [address]- 5417 September, [facility] [place] [facility] [address] [id number] [place] [address]- 1510 September, [facility] [place] [facility] [address] [id number] [place] [address]- 3005 September, [facility] [place] [facility] [address] [id number] [place] [address]- 5392 September, [facility] [place] [facility] [address] [id number] [place] [address]- 1529 September, [facility] [place] [facility] [address] [id number] [place] [address]- 8670 September, [facility] [place] [facility] [address] [id number] [place] [address]- 3658 Aug, [facility] [place] [facility] [address] [id number] [place] [address]- 2920 Aug, [facility] [place] [facility] [address] [id number] [place] [address]- 7593 Aug, [facility] [place] [facility] [address] [id number] [place] [address]- 1816 Aug, [facility] [place] [facility] [address] [id number] [place] [address]- 3792 Jul, [facility] [place] [facility] [address] [id number] [place] [address]- 4146 Jul, [facility] [place] [facility] [address] [id number] [place] [address]- 6482 Jun, [facility] [place] [facility] [address] [id number] [place] [address]- 6068 Jun, [facility] [place] [facility] [address] [id number] [place] [address]- 8644 May, [facility] [place] [facility] [address] [id number] [place] [address]- 4629 May, [facility] [place] [facility] [address] [id number] [place] [address]- 1576 Jan, [facility] [address] [id number] [place] [address]- 4606 Dec, [facility] [place] [facility] [address] [id number] [place] [address]- 4750 Jun, [facility] [place] [facility] [address] [id number] [place] [address]- 3268 May, [facility] [address] [id number] [place] [address]- 8436 Nov, [facility] [place] [facility] [address] [id number] [place] [address]- 5029 September, [facility] [address] [id number] [place] [address]- 7568 Aug, [facility] [place] [facility] [address] [id number] [place] [address]- 6338 Aug, [facility] [place] [facility] [address] [id number] [place] [address]- 9765 Aug, [facility] [place] [facility] [address] [id number] [place] [address]- 5215 Aug, [facility] [place] [facility] [address] [id number] [place] [address]- 1489 Nov, [facility] [place] [facility] [address] [id number] [place] [address]- 8342 Oct, [facility] [place] [facility] [address] [id number] [place] [address]- 6166 Jul, [facility] [address] [id number] [address]696 Feb, [facility] [address] [id number] [address]- 9091 Feb, [facility] [id number] [address]- 5637 Apr, [facility] [id number] [place] [address] 24293- 9925 Apr, [facility] [id number] [address]- 3307 Feb, [facility] [id number] [address]- 7674 Feb, [facility] [id number] [address] Jul, IMMUNIZATIONS No Known Immunizations SOCIAL HISTORY Never Assessed REASON FOR VISIT Dizziness with ambulation since leaving the hospital 2 weeks ago. Reports "things go away". Pt reports he left the hospital AMA. Was seen by Dr. Collins yesterday for right foot wounds. Pt thinks his blood pressure meds are dropping his blood pressure too low. CBrumbackRn PLAN OF CARE Activity Details Follow Up prn Reason: VITAL SIGNS Height 70 in 2017-10-01 Temperature 97.6 degrees Fahrenheit 2017-10-01 Heart Rate 72 bpm 2017-10-01 Respiratory Rate 18 2017-10-01 Oximetry 95 % 2017-10-01 Blood pressure systolic 94 mmHg 2017-10-01 Blood pressure diastolic 62 mmHg 2017-10-01 MEDICATIONS Medication Instructions Dosage Frequency Start Date End Date Duration Status Cymbalta 60 mg Orally Once a day 1 capsule 24h May, Active Metoprolol Succinate ER 50 MG TAKE ONE TABLET BY MOUTH ONCE DAILY 90 Active Robitussin 12 Hour Cough 30 mg/5ml Orally every 12 hrs 10 ml as needed 12h 29 Jul, 2016 Not-Taking Elavil 75 by oral route at bedtime 1 tablet Dec, Active Pioglitazone HCl 45 MG TAKE ONE TABLET BY MOUTH ONCE DAILY (NEEDS APPOINTMENT FOR FURTHER REFILLS) 90 Active Omeprazole 40 mg Orally Once a day 1 capsule 24h 10 Jun, 2015 Not- Taking Amlodipine Besylate 10 MG TAKE ONE TABLET BY MOUTH ONCE DAILY 90 Active Hydrocodone-Ibuprofen 7.5-200 MG Orally 3 times a day 1 tablet as needed 8h September, 28 days Active Ranitidine HCl 150 MG TAKE ONE TABLET BY MOUTH TWICE DAILY 90 Active Ropinirole HCl 3 MG TAKE ONE TABLET BY MOUTH ONCE DAILY 1 TO 3 HOURS BEFORE AT BEDTIME 90 Active Metformin HCl 1000 MG TAKE ONE TABLET BY MOUTH TWICE DAILY WITH MEALS 90 Active benztropine 1 mg take 1 tablet (1 mg) by oral route 3 times per day Dec, Active Lyrica 150 MG Orally Twice a day 1 capsule 12h September, 28 days Active Invega 6 MG Orally at bedtime 1 tablet Active Vistaril 50 mg take 1 capsule (50 mg) by oral route 4 times per day Dec, Not-Taking Lisinopril-Hydrochlorothiazide 20-25 MG TAKE ONE TABLET BY MOUTH ONCE DAILY 90 Active Depakote 500 mg Orally 4 times a day 1 tablet 6h May, Active Ventolin HFA 108 (90 Base) MCG/ACT INHALE TWO PUFFS BY MOUTH EVERY 4 HOURS NEEDED 17 Active RESULTS Name Result Date Reference Range A1C (IN HOUSE) 2017-10-01 A1C IN HOUSE 4.8 4.3 - 5.6 % Previous A1c 5.3 Lot [id number] Exp date 07/2019 GLUCOSE FINGERSTICK (IN HOUSE) 2017-10-01 GLU FINGERSTICK 57 PC Lot # [id number] Exp date 11/2017 PROCEDURES Procedure Date Ordered Result Body Site GLYCATED HEMOGLOBIN TEST October 01, 2017 GLUCOSE BLOOD TEST October 01, 2017 [facility] VISIT ESTABLISHED PATIENT October 01, 2017 INSTRUCTIONS MEDICATIONS ADMINISTERED No Known Medications [...]
--- OUTSIDE RECORDS SUMMARY | 2018-09-15 22:40 | XMS REPORT ---
Author Author TESHA STACY Organization [facility] Address [address] [place] [address] Care Team Providers Care Organizational Effectiveness Consultant Name Role Phone TESHA STACY Unavailable PROBLEMS Type Condition ICD9-CM Code MXH02-WL Code Onset Dates Condition Status SNOMED Code Problem HTN (hypertension) I10 Active 86317145 Problem Restless legs syndrome G25.81 Active 994163661 Problem GERD (gastroesophageal reflux disease) K21.9 Active 623489576 Problem Chronic hepatitis C without hepatic coma B18.2 Active 433967666 Problem ED (erectile dysfunction) N52.9 Active 099123330 Problem PAD (peripheral artery disease) I73.9 Active 730844264 Problem Ulcer of right foot, unspecified ulcer stage L97.519 Active 96114954 Problem 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 128891290 Problem COPD (chronic obstructive pulmonary disease) J44.9 Active 50700269 Problem DM neuro manif type II E11.49 Active 23051844 Problem Sinusitis, unspecified chronicity, unspecified location J32.9 Active 71412638 ALLERGIES No Information ENCOUNTERS Encounter Location Date Diagnosis [place] [id number] [place] [address] 92492- 6264 Dec, Back pain M54.9 [facility] [address] [place] [id number] [place] [address] 40353- 5982 Dec, 2018 Foot infection L08.9 and Type 2 diabetes mellitus with other diabetic neurological complication E11.49 [place] [address] [place] [id number] [place] [address] 56161- 4802 Nov, Cellulitis of toe of right foot L03.031 ; Polyneuropathy in diseases classified elsewhere G63 and HTN (hypertension) I10 [place] [address] [place] [id number] [place] [address] 50970- 5268 Nov, [place] [address] [facility] [id number] [place] [address] 8286 Nov, [facility] [address] [facility] [id number] [place] [address]- 3874 Nov, Back pain M54.9 [facility] [address] [facility] [id number] [place] [address]- 7865 Nov, Shortness of breath R06.02 [facility] [address] [facility] [id number] [place] [address]- 1098 Nov, [facility] [address] [facility] [id number] [place] [address]- 3419 Oct, [facility] [address] [facility] [id number] [place] [address]- 1877 Oct, [facility] [address] [place] [id number] [address]- 7490 Oct, [facility] [address] [facility] [id number] [place] [address]- 2040 Oct, [facility] [address] [facility] [id number] [place] [address]- 4829 Oct, [facility] [address] [facility] [id number] [place] [address]- 9353 Oct, Back pain M54.9 [facility] [address] [place] [id number] [address]- 6194 Oct, Back pain M54.9 [facility] [address] [facility] [id number] [place] [address]- 1721 Oct, [facility] [address] [place] [id number] [address]- 5564 September, [facility] [place] [facility] [address] [facility] [id number] [place] [address]- 6366 September, [facility] [address] [place] [id number] [address]- 7330 September, [facility] [address] [address]- 0101 September, Type 2 diabetes mellitus with other diabetic neurological complication E11.49 and Hypotension, unspecified hypotension type I95.9 [facility] [id number] [address]- 8988 September, [facility] [address] [id number] [place] [address] 24641- 9063 September, [facility] [id number] [place] [address] 05792- 1268 September, Back pain M54.9 [facility] [address] [place] [id number] [place] [address] 27651- 7842 Aug, [facility] [address] [place] [id number] [place] [address] 45766- 5716 Aug, Acute cystitis with hematuria N30.01 ; Ulcer of right foot, unspecified ulcer stage L97.519 ; HTN (hypertension) I10 ; COPD (chronic obstructive pulmonary disease) J44.9 and DM neuro manif type II E11.49 [facility] [id number] [place] [address] 09309- 2149 Aug, Back pain M54.9 [facility] [id number] [place] [address] 74821- 1751 Jul, [facility] [id number] [place] [address] 91165- 6666 Jul, Back pain M54.9 [facility] [address] [place] [address] 17374- 0865 Jul, [facility] [address] [id number] [place] [address] 11468- 2749 Jul, DM neuro manif type II E11.49 and Ulcer of right foot, unspecified ulcer stage L97.519 [facility] [address] [address] [id number] [place] [address] 31547- 2729 Jun, [facility] [address] [address] [id number] [place] [address] 88319- 4373 Jun, [facility] [address] 53092- 6962 May, Type 2 diabetes mellitus with other diabetic neurological complication E11.49 ; GERD (gastroesophageal reflux disease) K21.9 and PAD ( peripheral artery disease) I73.9 [facility] [address] 32964- 0629 May, Decubital ulcer L89.90 ; Diabetes E11.9 and GERD ( gastroesophageal reflux disease) K21.9 [facility] [address] 79868- 8342 May, [facility] [address] 93742- 8800 Apr, [facility] [address] 28012- 7118 Mar, [facility] [address] [place] [id number] [place] [address] 91239- 2363 Mar, [facility] [address] [address] [id number] [place] [address] 17164- 0871 Feb, [facility] [address] [address] [id number] [place] [address] 72809- 9559 Feb, [facility] [address] [id number] [place] [address] 21951- 5034 Jan, [facility] [address] [address] [id number] [place] [address] 18988- 0966 Jan, HTN (hypertension) I10 [facility] [address] [address] [id number] [place] [address] 39426- 6985 Jan, [facility] [address] [id number] [place] [address] 36643- 4146 Dec, Back pain M54.9 [facility] [address] [place] [address] 2913 Dec, Back pain M54.9 [facility] [address] [id number] [place] [address] 71641 -9887 Dec, Encounter for immunization Z23 and Puncture wound of right foot, initial encounter S91.331A [facility] [address] [address] [id number] [place] [address] 06894- 1992 Dec, [facility] [address] [address] [id number] [place] [address] 74632- 7463 Nov, [facility] [address] [address] [id number] [place] [address] 87574- 7963 Nov, COPD (chronic obstructive pulmonary disease) J44.9 [facility] [address] [place] [address] [id number] [place] [address] 61481- 7675 Nov, [facility] [address] [id number] [place] [address] 12223- 0744 Oct, [facility] [address] [place] [id number] [place] [address] 42022- 0539 Oct, [facility] [address] [id number] [place] [address] 86120- 1132 September, Onychomycosis B35.1 and DM neuro manif type II E11.49 [facility] [address] [id number] [place] [address] 55962- 8461 September, [facility] [address] [id number] [place] [address] 54735- 7282 Aug, [facility] [address] [place] [id number] [place] [address] 30490- 1924 Jul, Sinusitis, unspecified chronicity, unspecified location J32.9 and Cough R05 [facility] [address] [place] [id number] [place] [address] 37635- 6656 Jul, Back pain M54.9 [facility] [address] [place] [id number] [place] [address] 04872- 7529 14 Jun, 2016 Back pain M54.9 [facility] [address] [place] [address] 90416- 8788 06 Jun, 2016 COPD (chronic obstructive pulmonary disease) J44.9 [facility] [address] [address]- 3947 May, [facility] [address] [place] [id number] [place] [address] 29995- 3392 May, [facility] [address] [place] [id number] [place] [address] 35016- 1324 May, Back pain M54.9 [facility] [address] [place] [id number] [place] [address] 92159- 3320 May, [facility] [address] [place] [id number] [place] [address] 19216- 5540 May, [facility] [address] [place] [id number] [place] [address] 45593- 3499 May, Diabetes E11.9 [place] [address] [place] [id number] [place] [address] 41538- 7713 May, Diabetes E11.9 ; GERD (gastroesophageal reflux [...] Need for hepatitis C screening test Z11.59 [place] [address] [place] [address] 27228- 4618 May, HTN (hypertension) I10 [facility] [address] [address]- 2651 Apr, [facility] [address] [place] [id number] [place] [address] 95313- 5647 Apr, [facility] [address] [place] [address] 22312- 9060 Apr, [facility] [address] [place] [id number] [place] [address] 52403- 9095 Apr, [facility] [address] [address] [id number] [place] [address] 83264- 3037 Apr, [facility] [address] [place] [id number] [place] [address] 83023- 5985 Mar, [facility] [address] [id number] [place] [address] 86702- 4350 Mar, [facility] [address] [place] [id number] [place] [address] 05213- 6676 Mar, [facility] [address] [place] [id number] [place] [address] 02868- 5946 Mar, [facility] [address] [place] [id number] [place] [address] 22501- 9315 Mar, Dental examination Z01.20 [facility] [address] [place] [id number] [place] [address] 32086- 3029 Feb, [facility] [address] [place] [id number] [place] [address] 40785- 8940 Feb, [facility] [address] [place] [id number] [place] [address] 98937- 0157 Feb, Back pain M54.9 [facility] [address] [id number] [place] [address] 12904- 1971 Jan, [facility] [address] [place] [id number] [place] [address] 80573- 1932 Jan, [facility] [address] [place] [id number] [place] [address] 74438- 9376 Dec, Diabetes E11.9 ; GERD (gastroesophageal reflux disease) K21.9 ; ED (erectile dysfunction) N52.9 ; HTN (hypertension) I10 ; Insomnia G47.00 ; COPD (chronic obstructive pulmonary disease) J44.9 ; Neuropathy G62.9 and Bipolar depression F31.30 [facility] [id number] [address]- 7328 Dec, Type 2 diabetes mellitus with other diabetic neurological complication E11.49 and Onychomycosis B35.1 [facility] [address] [place] [id number] [address]- 7029 Dec, [facility] [address] [place] [id number] [place] [address], [place] [address]- 2004 Dec, [facility] [address] [place] [id number] [place] [address], [place] [address]- 4926 Dec, [facility] [address] [place] [id number] [place] [address], [place] [address]- 3301 Dec, [facility] [address] [place] [id number] [place] [address], [place] [address]- 7583 Nov, [facility] [address] [place] [id number] [address]- 0474 Nov, [facility] [address] [place] [id number] [address]- 3066 Oct, [facility] [address] [address]- 4978 Oct, [facility] [address] [address]- 0954 Oct, Back pain M54.9 [facility] [address] [address]- 0296 Oct, [facility] [address] [place] [id number] [address]- 5780 Oct, [facility] [address] [address]- 5777 Oct, [facility] [address] [address]- 2388 Oct, HTN (hypertension) I10 [facility] [address] [place] [id number] [place] [address] 31290- 7294 Oct, Back pain M54.9 [facility] [address] [place] [id number] [place] [address] 74655- 5323 Oct, Chronic pain syndrome G89.4 [facility] [address] [place] [id number] [place] [address] 83053- 8983 September, Back pain M54.9 [facility] [address] [place] [id number] [place] [address] 26880- 7189 September, HTN (hypertension) I10 [facility] [address] 91919- 3900 Aug, Porokeratosis Q82.8 ; Onychomycosis B35.1 and Type 2 diabetes mellitus with other diabetic neurological complication E11.49 [facility] [address] [place] [id number] [place] [address] 61315- 1404 Aug, GERD (gastroesophageal reflux disease) K21.9 ; Diabetes E11.9 ; HTN (hypertension) I10 ; Insomnia G47.00 ; Restless legs syndrome G25.81 ; COPD (chronic obstructive pulmonary disease) J44.9 ; Back pain M54.9 and Bipolar 1 disorder F31.9 [facility] [address] [place] [id number] [place] [address] 58302- 2097 Aug, [facility] [address] [place] [id number] [place] [address] 98815- 7610 Aug, [facility] [address] [place] [id number] [place] [address] 38806- 6304 Aug, [facility] [address] [place] [id number] [place] [address] 44357- 7558 Aug, [facility] [address] [place] [id number] [place] [address] 65901- 2692 Jul, [facility] [address] [place] [id number] [place] [address] 65590- 5020 31 Jul, 2015 [facility] [address] [place] [address] 57417- 7208 30 Jul, 2015 [facility] [address] [place] [id number] [place] [address] 23637- 5776 16 Jul, 2015 [facility] [address] [place] [id number] [place] [address] 76872- 7334 Jul, [facility] [address] [place] [id number] [place] [address] 73033- 0061 Jul, [facility] [address] [place] [id number] [place] [address] 21028- 5087 Jun, Decubital ulcer L89.90 ; Diabetes E11.9 ; Back pain M54.9 ; HTN (hypertension) I10 and COPD (chronic obstructive pulmonary disease) J44.9 [facility] [address] [place] [id number] [place] [address] 88697- 5285 Jun, [facility] [address] [place] [id number] [place] [address] 02494- 4119 Jun, [facility] [address] [place] [id number] [place] [address] 58072- 5805 Jun, [facility] [address] [place] [id number] [place] [address] 14096- 8646 Jun, [facility] [address] [place] [id number] [place] [address] 30598- 0498 Jun, Diabetes E11.9 ; Insomnia G47.00 ; Decubital ulcer L89.90 ; GERD (gastroesophageal reflux disease) K21.9 ; Back pain M54.9 ; Superficial fungus infection of skin B36.9 and HTN (hypertension) I10 [address] [id number] [id number] Jun, Dental examination Z01.20 [facility] [address], [place] [address]- 9112 May, [facility] [address], [place] [address]- 9335 May, [facility] [address], [place] [address]- 0643 May, [facility] [address], [place] [address]- 2901 May, Diabetes E11.9 ; HTN (hypertension) I10 and Decubital ulcer L89.90 [facility] [address] [place] [address] [address]- 2895 May, HTN (hypertension) I10 ; Decubital ulcer L89.90 and Diabetes E11.9 [place] [address] [place] [address] 88165- 1149 30 Apr, 2015 Diabetes E11.9 ; GERD (gastroesophageal reflux disease) K21.9 ; Back pain M54.9 ; HTN (hypertension) I10 ; Restless legs syndrome G25.81 and Decubital ulcer L89.90 [facility] [address], [place] [address]- 1966 Apr, [place] [address] [place] [id number] [place] [address] 30090- 6740 Apr, Diabetes E11.9 ; HTN (hypertension) I10 ; Restless legs syndrome G25.81 ; GERD (gastroesophageal reflux disease) K21.9 and COPD ( chronic obstructive pulmonary disease) J44.9 [place] [address], [place] [address]- 4296 Mar, [facility] [address], [place] [address]- 0364 Mar, [place] [address] [place] [id number] [place] [address] 70001- 3959 Mar, Diabetes E11.9 ; Abscess L02.91 and Restless legs syndrome G25.81 [place] [address] [place] [address] 48504- 1434 Mar, [facility] [address] [place] [address] 46908- 9491 Feb, GERD (gastroesophageal reflux disease) K21.9 ; Back pain M54.9 ; ED (erectile dysfunction) N52.9 ; Diabetes E11.9 ; HTN (hypertension) I10 and Insomnia G47.00 [place] [address] [place] [id number] [place] [address] 96185- 1341 Feb, [place] [address] 05540- 2374 Feb, [place] [address] 76015- 8010 Jan, [place] [address] [place] [id number] [place] [address] 24659- 5184 Jan, Diabetes 250.00 ; Nondependent cannabis abuse, continuous 305.21 ; Cough 786.2 ; Schizoaffective disorder, unspecified 295.70 ; Sciatica 724.3 ; Other, mixed, or unspecified nondependent drug abuse, unspecified 305.90 ; Chronic pain 338.29 ; GERD (gastroesophageal reflux disease) 530.81 and HTN (hypertension) 401.9 [place] [address] [place] [id number] [place] [address] 55209- 9451 Jan, [place] [address] [place] [id number] [place] [address] 45704- 2177 Jan, [place] [address] [id number] [place] [address] 64821- 7788 Jan, Chronic pain associated with significant psychosocial dysfunction 338.4 ; Diabetes mellitus without mention of complication, type I [ juvenile type], uncontrolled 250.03 ; Benign essential hypertension 401.1 ; Schizoaffective disorder, unspecified 295.70 ; Wheezing 786.07 ; Ear ache 388.70 ; Cough 786.2 ; Sciatica 724.3 and Foot pain, bilateral 729.5 [place] [id number] [place] [address] 91440- 2209 Dec, [facility] [address], [place] [address]- 1975 Dec, [facility] [address], [place] [address]- 0783 Dec, [facility] [address], [place] [address]- 9760 Dec, [facility] [id number] [place] [address] 04535- 5924 Dec, [facility] [address] [place] [address] 99464- 2957 Nov, Elevated liver enzymes 790.5 [facility] [id number] [place] [address] 07299- 4503 Nov, [facility] [id number] [place] [address] 19076- 7380 Nov, [facility] [address], [place] [address]- 3133 Nov, [facility] [address], [place] [address]- 9001 Nov, Benign essential hypertension 401.1 ; Diabetes mellitus without mention of complication, type I [juvenile type], uncontrolled 250.03 and Nondependent cannabis abuse, continuous 305.21 [facility] [address], [place] [address]- 3658 Oct, Cellulitis 682.9 and Benign essential hypertension 401.1 [facility] [address], [place] [address]- 4793 Oct, [facility] [id number] [address]- 4603 September, [facility] [address], [place] [address]- 7869 September, [facility] [address], [place] [address]- 2280 Aug, [facility] [place] [facility] [address] [id number] [place] [address]- 5707 28 Aug, 2014 [facility] [place] [facility] [address] [id number] [place] [address]- 7767 14 Aug, 2014 [facility] [place] [facility] [address] [id number] [place] [address]- 5917 Aug, [facility] [place] [facility] [address] [id number] [place] [address]- 7603 Jul, [facility] [place] [facility] [address] [id number] [place] [address]- 9596 Jul, [facility] [place] [facility] [address] [id number] [place] [address] Jul, [facility] [place] [facility] [address] [id number] [place] [address] Jul, [facility] [place] [facility] [address] [id number] [place] [address] Jul, [facility] [place] [facility] [address] [id number] [place] [address] Jul, [facility] [place] [facility] [address] [id number] [place] [address] Jun, [facility] [place] [facility] [address] [id number] [place] [address] Jun, [facility] [place] [facility] [address] [id number] [address] Jun, [facility] [place] [facility] [address] [id number] [place] [address] Jun, [facility] [place] [facility] [address] [id number] [place] [address] Jun, [facility] [place] [facility] [address] [id number] [place] [address] May, [facility] [place] [facility] [address] [id number] [place] [address] May, [facility] [address] [id number] [place] [address] May, [facility] [address] [id number] [place] [address] May, [facility] [address] [id number] [place] [address] May, [facility] [address] [id number] [place] [address] May, [facility] [address] [id number] [place] [address] May, [facility] [address] [id number] [place] [address] May, [facility] [address] [id number] [place] [address] Apr, [facility] [address] [id number] [place] [address] Apr, [facility] [address] [id number] [place] [address]- [address] Apr, [facility] [address] [id number] [place] [address] Apr, [facility] [address] [id number] [place] [address] Mar, [facility] [place] [facility] [address] [id number] [place] [address] Mar, [facility] [place] [facility] [address] [id number] [place] [address] Mar, [facility] [place] [facility] [address] [id number] [place] [address] Mar, [facility] [place] [facility] [address] [id number] [place] [address] Feb, [facility] [place] [facility] [address] [id number] [place] [address] Feb, [facility] [place] [facility] [address] [id number] [place] [address] Feb, [facility] [place] [facility] [address] [id number] [place] [address] Feb, [facility] [place] [facility] [address] [id number] [place] [address] Feb, [facility] [place] [facility] [address] [id number] [place] [address] Feb, [facility] [place] [facility] [address] [id number] [place] [address] Jan, [facility] [place] [facility] [address] [id number] [place] [address] Jan, [facility] [place] [facility] [address] [id number] [place] [address] Jan, [facility] [place] [facility] [address] [id number] [place] [address] Jan, [facility] [place] [facility] [address] [id number] [place] [address] Dec, [facility] [place] [facility] [address] [id number] [place] [address] Dec, [facility] [place] [facility] [address] [id number], [place] [address] Dec, [facility] [place] [facility] [address] [id number] [place] [address] Dec, [facility] [place] [facility] [address] [id number] [place] [address] Dec, [facility] [place] [facility] [address] [id number] [place] [address] Dec, [facility] [place] [facility] [address] [id number], [place] [address] Oct, [facility] [place] [facility] [address] [id number] [place] [address] Oct, [facility] [place] [facility] [address] [id number] [place] [address] September, [facility] [place] [facility] [address] [id number] [place] [address]- [address] September, [facility] [place] [facility] [address] [id number] [place] [address] September, [facility] [place] [facility] [address] [id number] [place] [address] September, [facility] [place] [facility] [address] [id number] [place] [address] September, [facility] [place] [facility] [address] [facility] [id number] [place] [address] September, [facility] [place] [facility] [address] [id number] [place] [address] Aug, [facility] [place] [facility] [address] [id number] [place] [address] Aug, [facility] [place] [facility] [address] [id number] [place] [address]- [address] Aug, [facility] [place] [facility] [address] [id number] [place] [address] Aug, [facility] [place] [facility] [address] [id number] [place] [address] Jul, [facility] [place] [facility] [address] [id number] [place] [address] Jul, [facility] [place] [facility] [address] [id number] [place] [address] Jun, [facility] [place] [facility] [address] [id number] [place] [address] Jun, [facility] [place] [facility] [address] [id number] [place] [address] May, [facility] [place] [facility] [address] [id number] [place] [address] May, [facility] [place] [facility] [address] [id number] [place] [address] Jan, [facility] [place] [facility] [address] [id number] [place] [address]- [address] Dec, [facility] [place] [facility] [address] [id number] [place] [address] Jun, [facility] [place] [facility] [address] [id number] [place] [address] May, [facility] [place] [facility] [address] [id number] [place] [address] Nov, [facility] [place] [facility] [address] [id number] [place] [address] September, [facility] [address] [id number] [place] [address] Aug, [facility] [place] [facility] [address] [id number] [place] [address] Aug, [facility] [place] [facility] [address] [id number] [place] [address] Aug, [facility] [place] [facility] [address] [id number] [place] [address] Aug, [facility] [place] [facility] [address] [id number] [place] [address]- [address] Nov, [facility] [place] [facility] [address] [id number] [place] [address] Oct, [facility] [place] [facility] [address] [id number] [place] [address] Jul, [facility] [place] [facility] [address] [id number] [place] [id number] Feb, [facility] [address] [facility] [id number] [address] Feb, [facility] [id number] [address] Apr, [facility] [address] [id number], [place] [address] Apr, [facility] [id number], [place] [address] Feb, [facility] [address] [id number], [place] [address] Feb, [facility] [address] [id number], [place] [address] Jul, IMMUNIZATIONS No Known Immunizations SOCIAL HISTORY Never Assessed REASON FOR VISIT medications PLAN OF CARE VITAL SIGNS MEDICATIONS Unknown [...]
[2018-09-15 22:41] VITALS: BP 156/98
--- OUTSIDE RECORDS SUMMARY | 2018-09-15 22:41 | XMS REPORT ---
Author Author YVES BLEVINS [facility] Address [address] [place] [address] Care Team Providers Care Story Analyst Name Role Phone YVES BLEVINS Unavailable PROBLEMS Type Condition ICD9-CM Code CUB71-QB Code Onset Dates Condition Status SNOMED Code Problem HTN (hypertension) I10 Active 90070645 Problem Restless legs syndrome G25.81 Active 456623139 Problem GERD (gastroesophageal reflux disease) K21.9 Active 086202853 Problem Chronic hepatitis C without hepatic coma B18.2 Active 197679772 Problem ED (erectile dysfunction) N52.9 Active 555511734 Problem PAD (peripheral artery disease) I73.9 Active 980633907 Problem Ulcer of right foot, unspecified ulcer stage L97.519 Active 47438356 Problem 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 253701011 Problem COPD (chronic obstructive pulmonary disease) J44.9 Active 48944531 Problem DM neuro manif type II E11.49 Active 75321798 Problem Sinusitis, unspecified chronicity, unspecified location J32.9 Active 95922433 ALLERGIES No Information ENCOUNTERS Encounter Location Date Diagnosis [place] [id number] [place] [address] 15134- 5418 Dec, Back pain M54.9 [facility] [id number] [place] [address] 49835- 5570 Dec, 2018 Foot infection L08.9 and Type 2 diabetes mellitus with other diabetic neurological complication E11.49 [facility] [id number] [place] [address] 02443- 5923 Nov, Cellulitis of toe of right foot L03.031 ; Polyneuropathy in diseases classified elsewhere G63 and HTN (hypertension) I10 [place] [id number] [place] [address] 85349- 1810 Nov, [facility] [address] [id number] [place] [address] 9791 Nov, [facility] [address] [facility] [id number] [place] [address], [place] [address]- 9026 Nov, Back pain M54.9 [facility] [address] [facility] [id number] [place] [address]- 1798 Nov, Shortness of breath R06.02 [facility] [address] [id number] [place] [address]- 8234 Nov, [facility] [address] [id number] [place] [address], [place] [address]- 3176 Oct, [facility] [address] [facility] [id number] [place] [address]- 8999 Oct, [facility] [address] [place] [id number] [place] [address], [place] [address]- 0876 Oct, [facility] [address] [facility] [id number] [place] [address]- 8364 Oct, [facility] [address] [place] [id number] [place] [address]- 8883 Oct, [facility] [address] [place] [id number] [address]- 8944 Oct, Back pain M54.9 [facility] [address] [place] [id number] [address]- 2502 Oct, Back pain M54.9 [facility] [address] [facility] [id number] [place] [address]- 5141 Oct, [facility] [address] [facility] [id number] [place] [address]- 0943 September, [facility] [address] [facility] [id number] [place] [address]- 6877 September, [facility] [address] [place] [address] [id number] [place] [address]- 1592 September, [facility] [address] [address] 5364 September, Type 2 diabetes mellitus with other diabetic neurological complication E11.49 and Hypotension, unspecified hypotension type I95.9 [facility] [address] [address]- 2881 September, [facility] [id number] [place] [address] 22185- 8342 September, [facility] [id number] [place] [address] 60155- 7337 September, Back pain M54.9 [facility] [id number] [place] [address] 34290- 4510 Aug, [facility] [id number] [place] [address] 29982- 3203 Aug, Acute cystitis with hematuria N30.01 ; Ulcer of right foot, unspecified ulcer stage L97.519 ; HTN (hypertension) I10 ; COPD (chronic obstructive pulmonary disease) J44.9 and DM neuro manif type II E11.49 [facility] [id number] [place] [address] 04671- 5661 Aug, Back pain M54.9 [facility] [id number] [place] [address] 11021- 9311 Jul, [facility] [id number] [place] [address] 90807- 0718 Jul, Back pain M54.9 [facility] [address] [place] [address] 04613- 9930 Jul, [facility] [id number] [place] [address] 27915- 5458 Jul, DM neuro manif type II E11.49 and Ulcer of right foot, unspecified ulcer stage L97.519 [facility] [id number] [place] [address] 61206- 1108 Jun, [facility] [id number] [place] [address] 48703- 3628 Jun, [facility] [id number] [place] [address] 41353- 2361 May, Type 2 diabetes mellitus with other diabetic neurological complication E11.49 ; GERD (gastroesophageal reflux disease) K21.9 and PAD ( peripheral artery disease) I73.9 [facility] [address] 55481- 0750 May, Decubital ulcer L89.90 ; Diabetes E11.9 and GERD ( gastroesophageal reflux disease) K21.9 [facility] [address] 23518- 8649 May, [facility] [id number] [place] [address] 04582- 7653 Apr, [facility] [id number] [place] [address] 90175- 8240 Mar, [facility] [id number] [place] [address] 78300- 2733 Mar, [facility] [id number] [place] [address] 21243- 9905 Feb, [facility] [id number] [place] [address] 63519- 1525 Feb, [facility] [id number] [place] [address] 28679- 5781 Jan, [facility] [id number] [place] [address] 61313- 2486 Jan, HTN (hypertension) I10 [facility] [id number] [place] [address] 14896- 1934 Jan, [facility] [id number] [place] [address] 58381- 6426 Dec, Back pain M54.9 [facility] [address], [place] [address]- 2123 Dec, Back pain M54.9 [facility] [id number] [place] [address] 13698 -6690 Dec, Encounter for immunization Z23 and Puncture wound of right foot, initial encounter S91.331A [facility] [id number] [place] [address] 08537- 1996 Dec, [facility] [id number] [place] [address] 82547- 5109 Nov, [facility] [id number] [place] [address] 63780- 4643 Nov, COPD (chronic obstructive pulmonary disease) J44.9 [facility] [id number] [place] [address] 24695- 7096 Nov, [facility] [id number] [place] [address] 70867- 9109 Oct, [facility] [id number] [place] [address] 87920- 8980 Oct, [facility] [id number] [place] [address] 86522- 0283 September, Onychomycosis B35.1 and DM neuro manif type II E11.49 [facility] [address] [place] [address] 53598- 3693 September, [facility] [id number] [place] [address] 59189- 6217 Aug, [facility] [id number] [place] [address] 35319- 5187 Jul, Sinusitis, unspecified chronicity, unspecified location J32.9 and Cough R05 [facility] [address], [place] [address]- 0826 Jul, Back pain M54.9 [facility] [id number] [place] [address] 71465- 5496 14 Jun, 2016 Back pain M54.9 [facility] [id number] [place] [address] 68214- 9112 06 Jun, 2016 COPD (chronic obstructive pulmonary disease) J44.9 [facility] [id number] [place] [address] 54535- 5098 May, [facility] [address] 37626- 2136 May, [facility] [id number] [place] [address] 47370- 9212 May, Back pain M54.9 [facility] [id number] [place] [address] 34485- 1450 May, [place] [id number] [place] [address] 94970- 0462 May, [facility] [id number] [place] [address] 89183- 0545 May, Diabetes E11.9 [place] [id number] [place] [address] 55367- 8310 May, Diabetes E11.9 ; GERD (gastroesophageal reflux [...] screening test Z11.59 [facility] [id number] [place] [address] 86064- 0520 May, HTN (hypertension) I10 [facility] [id number] [place] [address] 10276- 6940 Apr, [facility] [address] 43998- 5976 Apr, [facility] [address] [place] [address] 09475- 1319 Apr, [facility] [address] [place] [address] 35852- 9330 Apr, [facility] [id number] [place] [address] 71636- 8547 Apr, [facility] [id number] [place] [address] 59795- 9230 Mar, [facility] [id number] [place] [address] 10468- 3993 Mar, [facility] [id number] [place] [address] 86004- 7673 Mar, [facility] [id number] [place] [address] 51130- 7294 Mar, [facility] [id number] [place] [address] 02331- 7868 Mar, Dental examination Z01.20 [facility] [id number] [place] [address] 56498- 2969 Feb, [facility] [id number] [place] [address] 71237- 1545 Feb, [facility] [id number] [place] [address] 88790- 1248 Feb, Back pain M54.9 [facility] [address] [place] [address] 21316- 2231 Jan, [facility] [id number] [place] [address] 54403- 5902 Jan, [facility] [address], [place] [address]- 0927 Dec, Diabetes E11.9 ; GERD (gastroesophageal reflux disease) K21.9 ; ED (erectile dysfunction) N52.9 ; HTN (hypertension) I10 ; Insomnia G47.00 ; COPD (chronic obstructive pulmonary disease) J44.9 ; Neuropathy G62.9 and Bipolar depression F31.30 [facility] [id number] [place] [address] 86445- 0251 Dec, Type 2 diabetes mellitus with other diabetic neurological complication E11.49 and Onychomycosis B35.1 [facility] [id number] [place] [address] 35418- 6754 Dec, [facility] [id number] [place] [address] 13928- 2175 Dec, [facility] [id number] [place] [address] 83460- 1126 Dec, [facility] [id number] [place] [address] 72341- 2379 Dec, [facility] [id number] [place] [address] 08897- 3030 Nov, [facility] [id number] [place] [address] 95348- 2052 Nov, [facility] [id number] [place] [address] 23043- 9562 Oct, [facility] [id number] [place] [address] 64551- 7726 Oct, [facility] [id number] [place] [address] 13771- 0736 Oct, Back pain M54.9 [facility] [id number] [place] [address] 96578- 2686 Oct, [facility] [id number] [place] [address] 45597- 2410 Oct, [facility] [id number] [place] [address] 70932- 9634 Oct, [facility] [id number] [place] [address] 60281- 1724 Oct, HTN (hypertension) I10 [facility] [address] [place] [address] 93415- 2609 Oct, Back pain M54.9 [facility] [id number] [place] [address] 35778- 1579 Oct, Chronic pain syndrome G89.4 [facility] [id number] [place] [address] 46753- 5449 September, Back pain M54.9 [facility] [id number] [place] [address] 77025- 6507 September, HTN (hypertension) I10 [place] [id number] [place] [address] 69081- 8186 Aug, Porokeratosis Q82.8 ; Onychomycosis B35.1 and Type 2 diabetes mellitus with other diabetic neurological complication E11.49 [place] [id number] [place] [address] 52072- 7227 Aug, GERD (gastroesophageal reflux disease) K21.9 ; Diabetes E11.9 ; HTN (hypertension) I10 ; Insomnia G47.00 ; Restless legs syndrome G25.81 ; COPD (chronic obstructive pulmonary disease) J44.9 ; Back pain M54.9 and Bipolar 1 disorder F31.9 [facility] [address], [place] [address]- 8392 Aug, [facility] [id number] [place] [address] 41861- 7065 Aug, [facility] [id number] [place] [address] 50955- 7609 Aug, [facility] [id number] [place] [address] 87309- 2806 Aug, [facility] [id number] [place] [address] 75716- 1568 Jul, [facility] [address] [place] [address]- 2928 31 Jul, 2015 [facility] [id number] [place] [address] 50051- 7024 30 Jul, 2015 [facility] [id number] [place] [address] 96045- 1035 16 Jul, 2015 [facility] [id number] [place] [address] 63606- 7643 15 Jul, 2015 [facility] [id number] [place] [address] 27084- 7100 Jul, [facility] [id number] [place] [address] 73458- 1066 Jun, Decubital ulcer L89.90 ; Diabetes E11.9 ; Back pain M54.9 ; HTN (hypertension) I10 and COPD (chronic obstructive pulmonary disease) J44.9 [facility] [id number] [place] [address] 17431- 3336 Jun, [facility] [id number] [place] [address] 88073- 8354 Jun, [facility] [id number] [place] [address] 26588- 1580 Jun, [facility] [id number] [place] [address] 66019- 0340 Jun, [facility] [id number] [place] [address] 90996- 2523 Jun, Diabetes E11.9 ; Insomnia G47.00 ; Decubital ulcer L89.90 ; GERD (gastroesophageal reflux disease) K21.9 ; Back pain M54.9 ; Superficial fungus infection of skin B36.9 and HTN (hypertension) I10 [address] [id number] [id number] 02 Jun, 2015 Dental examination Z01.20 [facility] [address] [place] [address] 18936- 9636 May, [facility] [address], [place] [address]- 3901 May, [facility] [id number] [place] [address] 28565- 6994 May, [facility] [id number] [place] [address] 88413- 8967 May, Diabetes E11.9 ; HTN (hypertension) I10 and Decubital ulcer L89.90 [facility] [address] [place] [address] 41220- 7107 May, HTN (hypertension) I10 ; Decubital ulcer L89.90 and Diabetes E11.9 [facility] [id number] [place] [address] 03557- 3770 30 Apr, 2015 Diabetes E11.9 ; GERD (gastroesophageal reflux disease) K21.9 ; Back pain M54.9 ; HTN (hypertension) I10 ; Restless legs syndrome G25.81 and Decubital ulcer L89.90 [place] [address], [place] [address]- 5299 Apr, [place] [id number] [place] [address] 03324- 9854 Apr, Diabetes E11.9 ; HTN (hypertension) I10 ; Restless legs syndrome G25.81 ; GERD (gastroesophageal reflux disease) K21.9 and COPD ( chronic obstructive pulmonary disease) J44.9 [facility] [address], [place] [address]- 2448 Mar, [facility] [address], [place] [address]- 2497 Mar, [facility] [id number] [place] [address] 22389- 0144 Mar, Diabetes E11.9 ; Abscess L02.91 and Restless legs syndrome G25.81 [facility] [id number] [place] [address] 91375- 4698 Mar, [facility] [id number] [place] [address] 82602- 4649 Feb, GERD (gastroesophageal reflux disease) K21.9 ; Back pain M54.9 ; ED (erectile dysfunction) N52.9 ; Diabetes E11.9 ; HTN (hypertension) I10 and Insomnia G47.00 [place] [address] 89028- 0661 Feb, [place] [address] 64339- 0286 Feb, [place] [address] 61420- 7000 Jan, [place] [address] 27595- 6907 Jan, Diabetes 250.00 ; Nondependent cannabis abuse, continuous 305.21 ; Cough 786.2 ; Schizoaffective disorder, unspecified 295.70 ; Sciatica 724.3 ; Other, mixed, or unspecified nondependent drug abuse, unspecified 305.90 ; Chronic pain 338.29 ; GERD (gastroesophageal reflux disease) 530.81 and HTN (hypertension) 401.9 [place] [id number] [place] [address] 37194- 0979 Jan, [place] [id number] [place] [address] 93642- 9442 Jan, [place] [address] 80692- 5135 Jan, Diabetes mellitus without mention of complication, type I [ juvenile type], uncontrolled 250.03 ; Schizoaffective disorder, unspecified 295.70 ; Benign essential hypertension 401.1 ; Chronic pain associated with significant psychosocial dysfunction 338.4 ; Wheezing 786.07 ; Ear ache 388.70 ; Cough 786.2 ; Sciatica 724.3 and Foot pain, bilateral 729.5 [place] [address] 12562- 3370 Dec, [facility] [address], [place] [address]- 7794 Dec, [facility] [address], [place] [address]- 1402 Dec, [facility] [address], [place] [address]- 7207 Dec, [facility] [id number] [place] [address] 32423- 1904 Dec, [facility] [address] [place] [address] 05174- 8809 Nov, Elevated liver enzymes 790.5 [facility] [address] [place] [address] 17417- 0083 Nov, [facility] [id number] [place] [address] 30570- 9840 Nov, [facility] [address], [place] [address]- 2452 Nov, [facility] [address] [place] [address] 25220- 9077 Nov, Diabetes mellitus without mention of complication, type I [ juvenile type], uncontrolled 250.03 ; Benign essential hypertension 401.1 and Nondependent cannabis abuse, continuous 305.21 [facility] [address], [place] [address]- 0928 Oct, Cellulitis 682.9 and Benign essential hypertension 401.1 [facility] [address] [place] [address]- 9715 Oct, [facility] [id number] [address] September, [facility] [id number] [address] September, [facility] [id number] [address] Aug, [facility] [place] [facility] [address] [id number] [place] [address] 28 Aug, 2014 [facility] [place] [facility] [address] [id number] [place] [address] 14 Aug, 2014 [facility] [place] [facility] [address] [id number] [place] [address] Aug, [facility] [place] [facility] [address] [id number] [place] [address] Jul, [facility] [place] [facility] [address] [id number] [place] [address] Jul, [facility] [place] [facility] [address] [id number] [place] [address] Jul, [facility] [place] [facility] [address] [id number] [place] [address] Jul, [facility] [place] [facility] [address] [id number] [place] [address] Jul, [facility] [place] [facility] [address] [id number] [place] [address] Jul, [facility] [place] [facility] [address] [facility] [id number] [place] [address] Jun, [facility] [place] [facility] [address] [id number] [place] [address] Jun, [facility] [place] [facility] [address] [id number] [place] [address] Jun, [facility] [place] [facility] [address] [id number] [place] [address] Jun, [facility] [place] [facility] [address] [id number] [place] [address] Jun, [facility] [place] [facility] [address] [id number] [place] [address] May, [facility] [place] [facility] [address] [id number] [place] [address] May, [facility] [address] [id number] [place] [address] May, [facility] [place] [facility] [address] [id number] [place] [address] May, [facility] [place] [facility] [address] [id number] [place] [address] May, [facility] [place] [facility] [address] [id number] [place] [address] May, [facility] [place] [facility] [address] [id number] [place] [address] May, [facility] [place] [facility] [address] [id number] [place] [address] May, [facility] [place] [facility] [address] [id number] [place] [address] Apr, [facility] [address] [id number] [place] [address] Apr, [facility] [place] [facility] [address] [id number] [place] [address] Apr, [facility] [place] [facility] [address] [id number] [place] [address] Apr, [facility] [place] [facility] [address] [id number] [place] [address] Mar, [facility] [place] [facility] [address] [id number] [place] [address] Mar, [facility] [place] [facility] [address] [id number] [place] [address] Mar, [facility] [place] [facility] [address] [id number] [place] [address] Mar, [facility] [place] [facility] [address] [id number] [place] [address] Feb, [facility] [place] [facility] [address] [id number] [place] [address] Feb, [facility] [place] [facility] [address] [id number] [place] [address] Feb, [facility] [place] [facility] [address] [id number] [place] [address] Feb, [facility] [place] [facility] [address] [id number] [place] [address] Feb, [facility] [place] [facility] [address] [id number] [place] [address] Feb, [facility] [place] [facility] [address] [id number] [place] [address] Jan, [facility] [place] [facility] [address] [id number] [place] [address] Jan, [facility] [place] [facility] [address] [id number] [place] [address] Jan, [facility] [place] [facility] [address] [id number] [place] [address] Jan, [facility] [place] [facility] [address] [id number] [place] [address] Dec, [facility] [place] [facility] [address] [id number] [place] [address] Dec, [facility] [place] [facility] [address] [id number], [place] [address] Dec, [facility] [place] [facility] [address] [id number] [place] [address] Dec, [facility] [place] [facility] [address] [id number] [place] [address]- [address]74 Dec, [facility] [place] [facility] [address] [id number] [place] [address] 1677 Dec, [facility] [place] [facility] [address] [id number] [place] [address] Oct, [facility] [place] [facility] [address] [id number] [place] [address]- 8021 Oct, [facility] [place] [facility] [address] [id number] [place] [address]- [address] September, [facility] [place] [facility] [address] [id number] [place] [address]- [address] September, [facility] [place] [facility] [address] [id number] [place] [address]- 55[address] September, [facility] [place] [facility] [address] [id number] [place] [address]- 2974 September, [facility] [place] [facility] [address] [id number] [place] [address]- 69[address] September, [facility] [place] [facility] [address] [id number] [place] [address]- 46[address] September, [facility] [place] [facility] [address] [id number] [place] [address]- [address] Aug, [facility] [place] [facility] [address] [id number] [place] [address] Aug, [facility] [place] [facility] [address] [id number] [place] [address]- 7029 Aug, [facility] [place] [facility] [address] [id number] [place] [address] Aug, [facility] [place] [facility] [address] [id number] [place] [address]- [address] Jul, [facility] [place] [facility] [address] [id number] [place] [address] Jul, [facility] [place] [facility] [address] [id number] [place] [address] Jun, [facility] [place] [facility] [address] [id number] [place] [address]- 5316 Jun, [facility] [place] [facility] [address] [id number] [place] [address]- [address] May, [facility] [address] [id number] [place] [address] May, [facility] [address] [id number] [place] [address]- [address] Jan, [facility] [address] [id number] [place] [address]- 3315 Dec, [facility] [address] [id number] [place] [address]- [address] Jun, [facility] [address] [id number] [place] [address]653 May, [facility] [address] [id number] [place] [address]- [address]694 Nov, [facility] [address] [id number] [place] [address]- 67[address] September, [facility] [address] [id number] [place] [address] Aug, [facility] [address] [id number] [place] [address]- [address] Aug, [facility] [address] [id number] [place] [address]- [address]173 Aug, [facility] [address] [id number] [place] [address]- [address]40 Aug, [facility] [address] [id number] [place] [address]- 3969 Nov, [facility] [place] [facility] [address] [id number] [place] [address]- 0256 Oct, [facility] [place] [facility] [address] [id number] [place] [address] Jul, [facility] [address] [id number] [place] [address] Feb, [facility] [address] [facility] [id number] [address] Feb, [facility] [address] [id number], [place] [address] Apr, [facility] [address] [id number], [place] [address] Apr, [facility] [address] [id number], [place] [address] Feb, [facility] [address] [id number] [address] [address] Feb, [facility] [address] [facility] [id number], [place] [address] Jul, IMMUNIZATIONS No Known Immunizations SOCIAL HISTORY Never Assessed REASON FOR VISIT med check[address] [place] [address] PLAN OF CARE VITAL SIGNS MEDICATIONS Unknown [...]
--- OUTSIDE RECORDS SUMMARY | 2018-09-15 22:41 | XMS REPORT ---
Author Author YVES BLEVINS [facility] Address [address] [place] [address] Care Team Providers Care Bag Sealer Name Role Phone YVES BLEVINS Unavailable PROBLEMS Type Condition ICD9-CM Code QHA66-ZO Code Onset Dates Condition Status SNOMED Code Problem HTN (hypertension) I10 Active 28613001 Problem Restless legs syndrome G25.81 Active 930507060 Problem GERD (gastroesophageal reflux disease) K21.9 Active 454320876 Problem Chronic hepatitis C without hepatic coma B18.2 Active 490231279 Problem ED (erectile dysfunction) N52.9 Active 313622313 Problem PAD (peripheral artery disease) I73.9 Active 372346474 Problem Ulcer of right foot, unspecified ulcer stage L97.519 Active 01003457 Problem 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 823852655 Problem COPD (chronic obstructive pulmonary disease) J44.9 Active 47219916 Problem DM neuro manif type II E11.49 Active 34713241 Problem Sinusitis, unspecified chronicity, unspecified location J32.9 Active 06342546 ALLERGIES No Information ENCOUNTERS Encounter Location Date Diagnosis [place] [id number] [place] [address] 01936- 3843 Dec, Back pain M54.9 [facility] [id number] [place] [address] 82739- 4695 Dec, 2018 Foot infection L08.9 and Type 2 diabetes mellitus with other diabetic neurological complication E11.49 [facility] [id number] [place] [address] 17021- 6331 Nov, Cellulitis of toe of right foot L03.031 ; Polyneuropathy in diseases classified elsewhere G63 and HTN (hypertension) I10 [place] [address] [place] [id number] [place] [address] 93212- 1470 Nov, [facility] [address] [id number] [place] [address] 0602 Nov, [facility] [address] [facility] [id number] [place] [address], [place] [address] 2873 Nov, Back pain M54.9 [facility] [address] [facility] [id number] [place] [address] 6743 Nov, Shortness of breath R06.02 [facility] [address] [id number] [place] [address] 7548 Nov, [facility] [address] [id number] [place] [address], [place] [address]- 5814 Oct, [facility] [address] [facility] [id number] [place] [address]- 6276 Oct, [facility] [address] [place] [id number] [place] [address], [place] [address]- 7213 Oct, [facility] [address] [facility] [id number] [place] [address] 8108 Oct, [facility] [address] [id number] [place] [address] 4782 Oct, [facility] [address] [id number] [place] [address] 7797 Oct, Back pain M54.9 [facility] [address] [id number] [place] [address] 4387 Oct, Back pain M54.9 [facility] [address] [facility] [id number] [place] [address]- 1160 Oct, [facility] [address] [facility] [id number] [place] [address] 1887 September, [facility] [address] [facility] [id number] [place] [address]- 8271 September, [facility] [address] [id number] [place] [address] 4813 September, [facility] [address], [place] [address] 8715 September, Type 2 diabetes mellitus with other diabetic neurological complication E11.49 and Hypotension, unspecified hypotension type I95.9 [facility] [address], [place] [address] 7553 September, [facility] [id number] [place] [address] 53340- 3359 September, [facility] [id number] [place] [address] 95568- 5595 September, Back pain M54.9 [facility] [id number] [place] [address] 62659- 7090 Aug, [facility] [id number] [place] [address] 64300- 6119 Aug, Acute cystitis with hematuria N30.01 ; Ulcer of right foot, unspecified ulcer stage L97.519 ; HTN (hypertension) I10 ; COPD (chronic obstructive pulmonary disease) J44.9 and DM neuro manif type II E11.49 [facility] [id number] [place] [address] 46653- 4761 Aug, Back pain M54.9 [facility] [id number] [place] [address] 76998- 5999 Jul, [facility] [id number] [place] [address] 58410- 3845 Jul, Back pain M54.9 [facility] [id number] [place] [address] 67901- 4069 Jul, [facility] [address] [id number] [place] [address] 61185- 6352 Jul, DM neuro manif type II E11.49 and Ulcer of right foot, unspecified ulcer stage L97.519 [facility] [id number] [place] [address] 11600- 5838 Jun, [facility] [id number] [place] [address] 74815- 4378 Jun, [facility] [id number] [place] [address] 69376- 6800 May, Type 2 diabetes mellitus with other diabetic neurological complication E11.49 ; GERD (gastroesophageal reflux disease) K21.9 and PAD ( peripheral artery disease) I73.9 [facility] [address] 41905- 0698 May, Decubital ulcer L89.90 ; Diabetes E11.9 and GERD ( gastroesophageal reflux disease) K21.9 [facility] [address] 36402- 6391 May, [facility] [id number] [place] [address] 04766- 2783 Apr, [facility] [id number] [place] [address] 68581- 7079 Mar, [facility] [id number] [place] [address] 23662- 4983 Mar, [facility] [id number] [place] [address] 59853- 4814 Feb, [facility] [id number] [place] [address] 34062- 2735 Feb, [facility] [id number] [place] [address] 26688- 2398 Jan, [facility] [id number] [place] [address] 22544- 7877 Jan, HTN (hypertension) I10 [facility] [id number] [place] [address] 97437- 3270 Jan, [facility] [id number] [place] [address] 71842- 7941 Dec, Back pain M54.9 [facility] [address], [place] [address]- 5373 Dec, Back pain M54.9 [facility] [id number] [place] [address] 14997 -6906 Dec, Encounter for immunization Z23 and Puncture wound of right foot, initial encounter S91.331A [facility] [id number] [place] [address] 94316- 7973 Dec, [facility] [id number] [place] [address] 79120- 3320 Nov, [facility] [id number] [place] [address] 26802- 3930 Nov, COPD (chronic obstructive pulmonary disease) J44.9 [facility] [address] [place] [id number] [place] [address] 75240- 4151 Nov, [facility] [id number] [place] [address] 22820- 1418 Oct, [facility] [id number] [place] [address] 38477- 1004 Oct, [facility] [id number] [place] [address] 37538- 2125 September, Onychomycosis B35.1 and DM neuro manif type II E11.49 [facility] [id number] [place] [address] 83847- 0990 September, [facility] [id number] [place] [address] 99967- 3428 Aug, [facility] [id number] [place] [address] 72489- 1155 Jul, Sinusitis, unspecified chronicity, unspecified location J32.9 and Cough R05 [facility] [address], [place] [address]- 8414 Jul, Back pain M54.9 [facility] [id number] [place] [address] 51598- 8322 14 Jun, 2016 Back pain M54.9 [facility] [id number] [place] [address] 97328- 9175 06 Jun, 2016 COPD (chronic obstructive pulmonary disease) J44.9 [facility] [id number] [place] [address] 12323- 6939 May, [facility] [address] 37716- 2124 May, [facility] [address] [id number] [place] [address] 86016- 6847 May, Back pain M54.9 [facility] [address] [place] [id number] [place] [address] 16015- 7266 May, [place] [address] [place] [address] [id number] [place] [address] 90880- 5983 May, [facility] [id number] [place] [address] 01460- 5036 May, Diabetes E11.9 [place] [address] [place] [address] [id number] [place] [address] 33670- 2109 May, Diabetes E11.9 ; GERD (gastroesophageal reflux [...] Need for hepatitis C screening test Z11.59 [facility] [address] [place] [id number] [place] [address] 51229- 3596 May, HTN (hypertension) I10 [facility] [address] [id number] [place] [address] 92334- 2139 Apr, [facility] [address] 51318- 5998 Apr, [facility] [id number] [place] [address] 50643- 8748 Apr, [facility] [id number] [place] [address] 30671- 4194 Apr, [facility] [id number] [place] [address] 90469- 2614 Apr, [facility] [id number] [place] [address] 44728- 6996 Mar, [facility] [id number] [place] [address] 80032- 5836 Mar, [facility] [id number] [place] [address] 94088- 3803 Mar, [facility] [id number] [place] [address] 07487- 3113 Mar, [facility] [id number] [place] [address] 31403- 2143 Mar, Dental examination Z01.20 [facility] [id number] [place] [address] 35967- 3662 Feb, [facility] [id number] [place] [address] 16620- 4836 Feb, [facility] [id number] [place] [address] 96571- 1789 Feb, Back pain M54.9 [facility] [id number] [place] [address] 06133- 3353 Jan, [facility] [id number] [place] [address] 62669- 2700 Jan, [facility] [address], [place] [address]- 5921 Dec, Diabetes E11.9 ; GERD (gastroesophageal reflux disease) K21.9 ; ED (erectile dysfunction) N52.9 ; HTN (hypertension) I10 ; Insomnia G47.00 ; COPD (chronic obstructive pulmonary disease) J44.9 ; Neuropathy G62.9 and Bipolar depression F31.30 [facility] [id number] [place] [address] 66953- 1948 Dec, Type 2 diabetes mellitus with other diabetic neurological complication E11.49 and Onychomycosis B35.1 [facility] [id number] [place] [address] 15250- 9264 Dec, [facility] [id number] [place] [address] 22056- 1062 Dec, [facility] [id number] [place] [address] 50003- 3510 Dec, [facility] [id number] [place] [address] 24520- 2491 Dec, [facility] [id number] [place] [address] 24968- 8019 Nov, [facility] [id number] [place] [address] 91543- 4962 Nov, [facility] [id number] [place] [address] 11732- 2223 Oct, [facility] [id number] [place] [address] 61620- 0350 Oct, [facility] [id number] [place] [address] 52903- 4887 Oct, Back pain M54.9 [facility] [id number] [place] [address] 07423- 6293 Oct, [facility] [id number] [place] [address] 81542- 6431 Oct, [facility] [id number] [place] [address] 36779- 3034 Oct, [facility] [id number] [place] [address] 13123- 7694 Oct, HTN (hypertension) I10 [facility] [id number] [place] [address] 61738- 9552 Oct, Back pain M54.9 [facility] [id number] [place] [address] 96844- 7027 Oct, Chronic pain syndrome G89.4 [facility] [id number] [place] [address] 47308- 6749 September, Back pain M54.9 [facility] [id number] [place] [address] 91140- 5623 September, HTN (hypertension) I10 [place] [id number] [place] [address] 54272- 4769 Aug, Porokeratosis Q82.8 ; Onychomycosis B35.1 and Type 2 diabetes mellitus with other diabetic neurological complication E11.49 [place] [id number] [place] [address] 42932- 2436 Aug, GERD (gastroesophageal reflux disease) K21.9 ; Diabetes E11.9 ; HTN (hypertension) I10 ; Insomnia G47.00 ; Restless legs syndrome G25.81 ; COPD (chronic obstructive pulmonary disease) J44.9 ; Back pain M54.9 and Bipolar 1 disorder F31.9 [facility] [address], [place] [address]- 2683 Aug, [facility] [id number] [place] [address] 03591- 9478 Aug, [facility] [id number] [place] [address] 90124- 5623 Aug, [facility] [id number] [place] [address] 20747- 0298 Aug, [facility] [id number] [place] [address] 73640- 3561 Jul, [facility] [address] [place] [address]- 2017 31 Jul, 2015 [facility] [id number] [place] [address] 29295- 3003 30 Jul, 2015 [facility] [id number] [place] [address] 94298- 1365 16 Jul, 2015 [facility] [id number] [place] [address] 53733- 4294 15 Jul, 2015 [facility] [id number] [place] [address] 03902- 0823 Jul, [facility] [id number] [place] [address] 54734- 9947 Jun, Decubital ulcer L89.90 ; Diabetes E11.9 ; Back pain M54.9 ; HTN (hypertension) I10 and COPD (chronic obstructive pulmonary disease) J44.9 [facility] [id number] [place] [address] 81763- 6190 Jun, [facility] [id number] [place] [address] 63005- 1844 Jun, [facility] [id number] [place] [address] 11094- 5899 Jun, [facility] [id number] [place] [address] 72389- 2473 Jun, [facility] [id number] [place] [address] 21420- 3668 Jun, Diabetes E11.9 ; Insomnia G47.00 ; Decubital ulcer L89.90 ; GERD (gastroesophageal reflux disease) K21.9 ; Back pain M54.9 ; Superficial fungus infection of skin B36.9 and HTN (hypertension) I10 [address] [id number] [id number] 02 Jun, 2015 Dental examination Z01.20 [facility] [id number] [place] [address] 07182- 3993 May, [facility] [address], [place] [address]- 8545 May, [facility] [id number] [place] [address] 35023- 3561 May, [facility] [id number] [place] [address] 79272- 5731 May, Diabetes E11.9 ; HTN (hypertension) I10 and Decubital ulcer L89.90 [facility] [id number] [place] [address] 31466- 4625 May, HTN (hypertension) I10 ; Decubital ulcer L89.90 and Diabetes E11.9 [facility] [id number] [place] [address] 07997- 4241 30 Apr, 2015 Diabetes E11.9 ; GERD (gastroesophageal reflux disease) K21.9 ; Back pain M54.9 ; HTN (hypertension) I10 ; Restless legs syndrome G25.81 and Decubital ulcer L89.90 [place] [address], [place] [address]- 9407 Apr, [place] [id number] [place] [address] 56966- 9652 Apr, Diabetes E11.9 ; HTN (hypertension) I10 ; Restless legs syndrome G25.81 ; GERD (gastroesophageal reflux disease) K21.9 and COPD ( chronic obstructive pulmonary disease) J44.9 [facility] [address], [place] [address]- 4931 Mar, [facility] [address], [place] [address]- 5636 Mar, [facility] [id number] [place] [address] 15622- 6989 Mar, Diabetes E11.9 ; Abscess L02.91 and Restless legs syndrome G25.81 [facility] [id number] [place] [address] 95824- 2471 Mar, [facility] [id number] [place] [address] 37372- 1032 Feb, GERD (gastroesophageal reflux disease) K21.9 ; Back pain M54.9 ; ED (erectile dysfunction) N52.9 ; Diabetes E11.9 ; HTN (hypertension) I10 and Insomnia G47.00 [place] [address] 69910- 8918 Feb, [place] [address] 00573- 7724 Feb, [place] [address] 21509- 8185 Jan, [place] [address] 17431- 9623 Jan, Diabetes 250.00 ; Nondependent cannabis abuse, continuous 305.21 ; Cough 786.2 ; Schizoaffective disorder, unspecified 295.70 ; Sciatica 724.3 ; Other, mixed, or unspecified nondependent drug abuse, unspecified 305.90 ; Chronic pain 338.29 ; GERD (gastroesophageal reflux disease) 530.81 and HTN (hypertension) 401.9 [place] [id number] [place] [address] 07473- 4715 Jan, [place] [id number] [place] [address] 66712- 9997 Jan, [place] [address] 13469- 0642 Jan, Chronic pain associated with significant psychosocial dysfunction 338.4 ; Diabetes mellitus without mention of complication, type I [ juvenile type], uncontrolled 250.03 ; Benign essential hypertension 401.1 ; Schizoaffective disorder, unspecified 295.70 ; Wheezing 786.07 ; Ear ache 388.70 ; Cough 786.2 ; Sciatica 724.3 and Foot pain, bilateral 729.5 [place] [address] 26615- 7891 Dec, [facility] [address], [place] [address]- 6876 Dec, [facility] [address], [place] [address]- 4121 Dec, [facility] [address], [place] [address]- 7707 Dec, [facility] [id number] [place] [address] 30526- 1418 Dec, [facility] [id number] [place] [address] 78104- 7650 Nov, Elevated liver enzymes 790.5 [facility] [address], [place] [address]- 6619 Nov, [facility] [id number] [place] [address] 70839- 2314 Nov, [facility] [address], [place] [address]- 9466 Nov, [facility] [id number] [place] [address] 84431- 3131 Nov, Benign essential hypertension 401.1 ; Diabetes mellitus without mention of complication, type I [juvenile type], uncontrolled 250.03 and Nondependent cannabis abuse, continuous 305.21 [facility] [address], [place] [address]- 9606 Oct, Cellulitis 682.9 and Benign essential hypertension 401.1 [facility] [address], [place] [address]- 0530 Oct, [facility] [address], [place] [address]- 8752 September, [facility] [address], [place] [address]- 4865 September, [facility] [address], [place] [address]- 4083 Aug, [facility] [place] [facility] [address] [id number] [place] [address]- 2415 28 Aug, 2014 [facility] [place] [facility] [address] [id number] [place] [address]- 4138 14 Aug, 2014 [facility] [place] [facility] [address] [id number] [place] [address] Aug, [facility] [place] [facility] [address] [id number] [place] [address] Jul, [facility] [place] [facility] [address] [id number] [place] [address] Jul, [facility] [place] [facility] [address] [id number] [place] [address] Jul, [facility] [place] [facility] [address] [id number] [place] [address] Jul, [facility] [place] [facility] [address] [id number] [place] [address] Jul, [facility] [place] [facility] [address] [id number] [place] [address] Jul, [facility] [place] [facility] [address] [facility] [id number] [place] [address] Jun, [facility] [place] [facility] [address] [id number] [place] [address] Jun, [facility] [place] [facility] [address] [id number] [place] [address] Jun, [facility] [place] [facility] [address] [id number] [place] [address] Jun, [facility] [place] [facility] [address] [id number] [place] [address] Jun, [facility] [place] [facility] [address] [id number] [place] [address] May, [facility] [place] [facility] [address] [id number] [place] [address] May, [facility] [address] [id number] [place] [address] May, [facility] [place] [facility] [address] [id number] [place] [address] May, [facility] [place] [facility] [address] [id number] [place] [address] May, [facility] [place] [facility] [address] [id number] [place] [address] May, [facility] [place] [facility] [address] [id number] [place] [address] May, [facility] [facility] [address] [id number] [place] [address] May, [facility] [facility] [address] [id number] [place] [address] Apr, [facility] [address] [id number] [place] [address] Apr, [facility] [address] [id number] [place] [address] Apr, [facility] [facility] [address] [id number] [place] [address] Apr, [facility] [place] [facility] [address] [id number] [place] [address] Mar, [facility] [address] [id number] [place] [address] Mar, [facility] [place] [facility] [address] [id number] [place] [address] Mar, [facility] [facility] [address] [id number] [place] [address] Mar, [facility] [address] [id number] [place] [address] Feb, [facility] [place] [facility] [address] [id number] [place] [address] Feb, [facility] [place] [facility] [address] [id number] [place] [address] Feb, [facility] [place] [facility] [address] [id number] [place] [address] Feb, [facility] [place] [facility] [address] [id number] [place] [address] Feb, [facility] [place] [facility] [address] [id number] [place] [address] Feb, [facility] [place] [facility] [address] [id number] [place] [address] Jan, [facility] [place] [facility] [address] [id number] [place] [address] Jan, [facility] [place] [facility] [address] [id number] [place] [address] Jan, [facility] [place] [facility] [address] [id number] [place] [address] Jan, [facility] [place] [facility] [address] [id number] [place] [address] Dec, [facility] [place] [facility] [address] [id number] [place] [address] Dec, [facility] [facility] [address] [id number], [place] [address] Dec, [facility] [facility] [address] [id number] [place] [address] Dec, [facility] [place] [facility] [address] [id number] [place] [address] Dec, [facility] [place] [facility] [address] [id number] [place] [address] 39[address] Dec, [facility] [place] [facility] [address] [id number] [place] [address] Oct, [facility] [place] [facility] [address] [id number] [place] [address] Oct, [facility] [place] [facility] [address] [id number] [place] [address] September, [facility] [place] [facility] [address] [id number] [place] [address] September, [facility] [place] [facility] [address] [id number] [place] [address] September, [facility] [place] [facility] [address] [id number] [place] [address] September, [facility] [place] [facility] [address] [id number] [place] [address] September, [facility] [facility] [address] [id number] [place] [address] September, [facility] [place] [facility] [address] [id number] [place] [address] Aug, [facility] [place] [facility] [address] [id number] [place] [address] Aug, [facility] [place] [facility] [address] [id number] [place] [address] Aug, [facility] [place] [facility] [address] [id number] [place] [address] Aug, [facility] [place] [facility] [address] [id number] [place] [address] Jul, [facility] [place] [facility] [address] [id number] [place] [address] Jul, [facility] [facility] [address] [id number] [place] [address] Jun, [facility] [facility] [address] [id number] [place] [address] Jun, [facility] [facility] [address] [id number] [place] [address] May, [facility] [address] [id number] [place] [address] May, [facility] [address] [id number] [place] [address] Jan, [facility] [address] [id number] [place] [address] Dec, [facility] [address] [id number] [place] [address] Jun, [facility] [address] [id number] [place] [address] May, [facility] [address] [id number] [place] [address] Nov, [facility] [address] [id number] [place] [address] September, [facility] [address] [id number] [place] [address] Aug, [facility] [address] [id number] [place] [address] Aug, [facility] [address] [id number] [place] [address] Aug, [facility] [address] [id number] [place] [address] Aug, [facility] [address] [id number] [place] [address] Nov, [facility] [address] [id number] [place] [address] Oct, [facility] [address] [id number] [place] [address] Jul, [facility] [address] [id number] [place] [address] Feb, [facility] [address] [facility] [id number][place] [address] [address] Feb, [facility] [address] [facility] [id number], [place] [address] Apr, [facility] [address] [facility] [id number], [place] [address] Apr, [facility] [address] [facility] [id number], [place] [address] Feb, [facility] [address] [facility] [id number][place] [address] Feb, [facility] [address] [facility] [id number], [place] [address] Jul, IMMUNIZATIONS No Known Immunizations SOCIAL HISTORY Never Assessed REASON FOR VISIT Home Health Concerns PLAN OF CARE VITAL SIGNS MEDICATIONS Medication Instructions Dosage Frequency Start Date End Date Duration Status Metformin HCl 1000 MG TAKE ONE TABLET BY MOUTH TWICE DAILY WITH MEALS Active Pioglitazone HCl 45 MG TAKE ONE TABLET BY MOUTH ONCE DAILY (NEEDS APPOINTMENT FOR FURTHER REFILLS) Active Lisinopril-Hydrochlorothiazide 20-25 MG TAKE ONE TABLET BY MOUTH ONCE DAILY Active Amlodipine Besylate 10 MG TAKE ONE TABLET BY MOUTH ONCE DAILY Active RESULTS No Results PROCEDURES No Known [...]
[2018-09-15 22:42] LABS: CLARITY,URINE CLEAR; COLOR,URINE YELLOW; GLUCOSE, URINE (UA) NEGATIVE (NEGATIVE); KETONES,URINE 1+ (NEGATIVE); LEUKOCYTE ESTERASE ,URINE 1+ (NEGATIVE); NITRITE,URINE NEGATIVE (NEGATIVE); PH,URINE 6 (5-9); PROTEIN,URINE 1+ (NEGATIVE); UROBILINOGEN,URINE 4 MG/DL (NORMAL)
--- OUTSIDE RECORDS SUMMARY | 2018-09-15 22:42 | XMS REPORT ---
Author Author YVES BLEVINS [facility] Address [address] [place] [address] Care Team Providers Care Taste Tester Name Role Phone YVES BLEVINS Unavailable PROBLEMS Type Condition ICD9-CM Code XYX87-PV Code Onset Dates Condition Status SNOMED Code Problem HTN (hypertension) I10 Active 75142888 Problem Restless legs syndrome G25.81 Active 796297371 Problem GERD (gastroesophageal reflux disease) K21.9 Active 237042248 Problem Chronic hepatitis C without hepatic coma B18.2 Active 038131677 Problem ED (erectile dysfunction) N52.9 Active 377784903 Problem PAD (peripheral artery disease) I73.9 Active 108493319 Problem Ulcer of right foot, unspecified ulcer stage L97.519 Active 46550689 Problem 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 646062256 Problem COPD (chronic obstructive pulmonary disease) J44.9 Active 53188296 Problem DM neuro manif type II E11.49 Active 06543906 Problem Sinusitis, unspecified chronicity, unspecified location J32.9 Active 81225148 ALLERGIES No Information ENCOUNTERS Encounter Location Date Diagnosis [place] [id number] [place] [address] 14647- 0109 Dec, Back pain M54.9 [facility] [address] [place] [id number] [place] [address] 72894- 6986 Dec, 2018 Foot infection L08.9 and Type 2 diabetes mellitus with other diabetic neurological complication E11.49 [facility] [address] [place] [id number] [place] [address] 68094- 3921 Nov, Cellulitis of toe of right foot L03.031 ; Polyneuropathy in diseases classified elsewhere G63 and HTN (hypertension) I10 [place] [address] [place] [id number] [place] [address] 40508- 1304 Nov, [facility] [address] [id number] [place] [address] 0026 Nov, [facility] [address] [facility] [id number] [place] [address], [place] [address]- 9813 Nov, Back pain M54.9 [facility] [address] [facility] [id number] [place] [address]- 5397 Nov, Shortness of breath R06.02 [facility] [id number] [place] [address]- 9093 Nov, [id number] [place] [address], [place] [address]- 8986 Oct, [facility] [address] [facility] [id number] [place] [address]- 3026 Oct, [facility] [address] [place] [id number] [place] [address], [place] [address]- 6059 Oct, [facility] [facility] [id number] [place] [address]- 3957 Oct, [facility] [address] [place] [id number] [place] [address]- 7099 Oct, [facility] [address] [place] [id number] [place] [address]- 0365 Oct, Back pain M54.9 [facility] [address] [place] [id number] [place] [address]- 7898 Oct, Back pain M54.9 [facility] [facility] [id number] [place] [address]- 6573 Oct, [facility] [facility] [id number] [place] [address]- 2186 September, [facility] [facility] [id number] [place] [address]- 1192 September, [facility] [address] [place] [id number] [place] [address]- 9745 September, [facility] [address] [address]- 9042 September, Type 2 diabetes mellitus with other diabetic neurological complication E11.49 and Hypotension, unspecified hypotension type I95.9 [facility] [address] [address]- 8333 September, [facility] [address] [place] [id number] [place] [address] 79385- 5540 September, [facility] [address] [id number] [place] [address] 31118- 2335 September, Back pain M54.9 [facility] [address] [place] [id number] [place] [address] 45153- 7180 Aug, [facility] [address] [id number] [place] [address] 44748- 2248 Aug, Acute cystitis with hematuria N30.01 ; Ulcer of right foot, unspecified ulcer stage L97.519 ; HTN (hypertension) I10 ; COPD (chronic obstructive pulmonary disease) J44.9 and DM neuro manif type II E11.49 [facility] [address] [place] [id number] [place] [address] 48529- 5310 Aug, Back pain M54.9 [facility] [address] [place] [id number] [place] [address] 86685- 7225 Jul, [facility] [address] [id number] [place] [address] 28783- 9543 Jul, Back pain M54.9 [facility] [id number] [place] [address] 48858- 3019 Jul, [facility] [address] [place] [id number] [place] [address] 64368- 7181 Jul, DM neuro manif type II E11.49 and Ulcer of right foot, unspecified ulcer stage L97.519 [facility] [address] [place] [id number] [place] [address] 02223- 2571 Jun, [facility] [address] [place] [id number] [place] [address] 16804- 7187 Jun, [facility] [address] [place] [id number] [place] [address] 07861- 7239 May, Type 2 diabetes mellitus with other diabetic neurological complication E11.49 ; GERD (gastroesophageal reflux disease) K21.9 and PAD ( peripheral artery disease) I73.9 [facility] [address] 82156- 4993 May, Decubital ulcer L89.90 ; Diabetes E11.9 and GERD ( gastroesophageal reflux disease) K21.9 [facility] [address] 56587- 0102 May, [facility] [address] [place] [id number] [place] [address] 91387- 1634 Apr, [facility] [address] [place] [id number] [place] [address] 88862- 4097 Mar, [facility] [address] [place] [id number] [place] [address] 58576- 6638 Mar, [facility] [address] [place] [id number] [place] [address] 05407- 7131 Feb, [facility] [address] [id number] [place] [address] 72782- 3642 Feb, [facility] [address] [place] [id number] [place] [address] 81859- 4972 Jan, [facility] [address] [id number] [place] [address] 88498- 9111 Jan, HTN (hypertension) I10 [facility] [address] [place] [id number] [place] [address] 23307- 3276 Jan, [facility] [address] [place] [id number] [place] [address] 31344- 9100 Dec, Back pain M54.9 [facility] [address] [address]- 5160 Dec, Back pain M54.9 [facility] [address] [place] [id number] [place] [address] 66871 -1827 Dec, Encounter for immunization Z23 and Puncture wound of right foot, initial encounter S91.331A [facility] [address] [place] [id number] [place] [address] 75652- 4706 Dec, [facility] [address] [place] [id number] [place] [address] 68017- 8700 Nov, [facility] [address] [place] [id number] [place] [address] 63933- 8986 Nov, COPD (chronic obstructive pulmonary disease) J44.9 [facility] [address] [place] [id number] [place] [address] 87957- 2186 Nov, [facility] [address] [place] [id number] [place] [address] 94914- 7386 Oct, [facility] [address] [place] [id number] [place] [address] 02436- 8130 Oct, [facility] [address] [place] [id number] [place] [address] 24671- 3593 September, Onychomycosis B35.1 and DM neuro manif type II E11.49 [facility] [id number] [place] [address] 85561- 7339 September, [facility] [address] [place] [id number] [place] [address] 34334- 5779 Aug, [facility] [address] [place] [id number] [place] [address] 07154- 0580 Jul, Sinusitis, unspecified chronicity, unspecified location J32.9 and Cough R05 [facility] [address] [address]- 0173 Jul, Back pain M54.9 [facility] [address] [place] [id number] [place] [address] 07917- 9474 14 Jun, 2016 Back pain M54.9 [facility] [address] [place] [id number] [place] [address] 53888- 3304 06 Jun, 2016 COPD (chronic obstructive pulmonary disease) J44.9 [facility] [address] [place] [id number] [place] [address] 83797- 4298 May, [facility] [address] 11203- 6068 May, [facility] [address] [place] [id number] [place] [address] 62368- 9417 May, Back pain M54.9 [facility] [address] [place] [id number] [place] [address] 69435- 5227 May, [place] [address] [place] [id number] [place] [address] 24828- 7566 May, [facility] [address] [id number] [place] [address] 59638- 8830 May, Diabetes E11.9 [place] [address] [place] [id number] [place] [address] 89610- 4218 May, Diabetes E11.9 ; GERD (gastroesophageal reflux [...] Need for hepatitis C screening test Z11.59 [facility] [address] [place] [id number] [place] [address] 92864- 1894 May, HTN (hypertension) I10 [facility] [address] [place] [id number] [place] [address] 89182- 9220 Apr, [facility] [address] 67467- 3418 Apr, [facility] [id number] [place] [address] 60842- 4075 Apr, [facility] [id number] [place] [address] 77555- 6656 Apr, [facility] [address] [place] [id number] [place] [address] 05454- 3061 Apr, [facility] [address] [place] [id number] [place] [address] 24166- 8511 Mar, [facility] [address] [place] [id number] [place] [address] 86058- 7056 Mar, [facility] [address] [place] [id number] [place] [address] 21965- 1190 Mar, [facility] [address] [place] [id number] [place] [address] 64662- 3490 Mar, [facility] [address] [place] [id number] [place] [address] 20156- 0383 Mar, Dental examination Z01.20 [facility] [address] [place] [id number] [place] [address] 15966- 4378 Feb, [facility] [address] [place] [id number] [place] [address] 17096- 6025 Feb, [facility] [address] [place] [id number] [place] [address] 56060- 8195 Feb, Back pain M54.9 [facility] [id number] [place] [address] 27064- 3347 Jan, [facility] [address] [place] [id number] [place] [address] 72515- 4040 Jan, [facility] [address] [address]- 9370 Dec, Diabetes E11.9 ; GERD (gastroesophageal reflux disease) K21.9 ; ED (erectile dysfunction) N52.9 ; HTN (hypertension) I10 ; Insomnia G47.00 ; COPD (chronic obstructive pulmonary disease) J44.9 ; Neuropathy G62.9 and Bipolar depression F31.30 [facility] [address] [place] [id number] [place] [address] 73549- 3880 Dec, Type 2 diabetes mellitus with other diabetic neurological complication E11.49 and Onychomycosis B35.1 [facility] [address] [place] [id number] [place] [address] 98186- 3773 Dec, [facility] [address] [id number] [place] [address] 72658- 4830 Dec, [facility] [address] [place] [id number] [place] [address] 14332- 9496 Dec, [facility] [address] [id number] [place] [address] 61969- 1302 Dec, [facility] [address] [place] [id number] [place] [address] 11533- 6064 Nov, [facility] [address] [id number] [place] [address] 50949- 9699 Nov, [facility] [address] [id number] [place] [address] 70221- 2985 Oct, [facility] [address] [id number] [place] [address] 64146- 5368 Oct, [facility] [address] [id number] [place] [address] 45532- 6874 Oct, Back pain M54.9 [facility] [address] [id number] [place] [address] 45527- 8272 Oct, [facility] [address] [id number] [place] [address] 64445- 3406 Oct, [facility] [address] [id number] [place] [address] 66188- 5339 Oct, [facility] [address] [id number] [place] [address] 92403- 1911 Oct, HTN (hypertension) I10 [facility] [id number] [place] [address] 86295- 4070 Oct, Back pain M54.9 [facility] [address] [id number] [place] [address] 68509- 2206 Oct, Chronic pain syndrome G89.4 [facility] [address] [place] [id number] [place] [address] 97577- 6632 September, Back pain M54.9 [facility] [address] [place] [id number] [place] [address] 20354- 5822 September, HTN (hypertension) I10 [place] [address] [place] [id number] [place] [address] 74047- 6387 Aug, Porokeratosis Q82.8 ; Onychomycosis B35.1 and Type 2 diabetes mellitus with other diabetic neurological complication E11.49 [place] [address] [place] [address] [place] [address] 04821- 2695 Aug, GERD (gastroesophageal reflux disease) K21.9 ; Diabetes E11.9 ; HTN (hypertension) I10 ; Insomnia G47.00 ; Restless legs syndrome G25.81 ; COPD (chronic obstructive pulmonary disease) J44.9 ; Back pain M54.9 and Bipolar 1 disorder F31.9 [facility] [address] [address]- 9292 Aug, [facility] [address] [place] [id number] [place] [address] 24062- 6187 Aug, [facility] [address] [place] [id number] [place] [address] 37516- 4415 Aug, [facility] [address] [place] [id number] [place] [address] 68309- 8593 Aug, [facility] [address] [place] [id number] [place] [address] 59582- 8307 Jul, [facility] [address] [place] [address]- 6367 31 Jul, 2015 [facility] [address] [id number] [place] [address] 38809- 1133 30 Jul, 2015 [facility] [address] [id number] [place] [address] 47467- 8663 16 Jul, 2015 [facility] [address] [place] [id number] [place] [address] 32304- 6095 15 Jul, 2015 [facility] [id number] [place] [address] 04994- 7490 Jul, [facility] [address] [place] [id number] [place] [address] 10105- 5744 Jun, Decubital ulcer L89.90 ; Diabetes E11.9 ; Back pain M54.9 ; HTN (hypertension) I10 and COPD (chronic obstructive pulmonary disease) J44.9 [facility] [address] [place] [id number] [place] [address] 72801- 7242 Jun, [facility] [address] [id number] [place] [address] 22085- 3234 Jun, [facility] [address] [id number] [place] [address] 99053- 8132 Jun, [facility] [address] [id number] [place] [address] 62770- 0120 Jun, [facility] [address] [address] [place] [address] 48532- 3916 Jun, Diabetes E11.9 ; Insomnia G47.00 ; Decubital ulcer L89.90 ; GERD (gastroesophageal reflux disease) K21.9 ; Back pain M54.9 ; Superficial fungus infection of skin B36.9 and HTN (hypertension) I10 [address] [id number] [id number] 02 Jun, 2015 Dental examination Z01.20 [facility] [address] [place] [address] 53486- 7484 May, [facility] [address] [address]- 1058 May, [facility] [id number] [place] [address] 02365- 9937 May, [facility] [id number] [place] [address] 14763- 5808 May, Diabetes E11.9 ; HTN (hypertension) I10 and Decubital ulcer L89.90 [facility] [address] [place] [address] 85738- 5107 May, HTN (hypertension) I10 ; Decubital ulcer L89.90 and Diabetes E11.9 [facility] [address] [id number] [place] [address] 99728- 1834 30 Apr, 2015 Diabetes E11.9 ; GERD (gastroesophageal reflux disease) K21.9 ; Back pain M54.9 ; HTN (hypertension) I10 ; Restless legs syndrome G25.81 and Decubital ulcer L89.90 [place] [address] [address]- 4017 Apr, [place] [address] [place] [id number] [place] [address] 64117- 9291 Apr, Diabetes E11.9 ; HTN (hypertension) I10 ; Restless legs syndrome G25.81 ; GERD (gastroesophageal reflux disease) K21.9 and COPD ( chronic obstructive pulmonary disease) J44.9 [facility] [address] [address]- 7733 Mar, [facility] [address] [address]- 5263 Mar, [facility] [address] [id number] [place] [address] 48612- 6944 Mar, Diabetes E11.9 ; Abscess L02.91 and Restless legs syndrome G25.81 [facility] [address] [id number] [place] [address] 17665- 6062 Mar, [facility] [id number] [place] [address] 68982- 1867 Feb, GERD (gastroesophageal reflux disease) K21.9 ; Back pain M54.9 ; ED (erectile dysfunction) N52.9 ; Diabetes E11.9 ; HTN (hypertension) I10 and Insomnia G47.00 [place] [address] 26990- 1223 Feb, [place] [address] 33781- 7581 Feb, [place] [address] 95694- 7067 Jan, [place] [address] 14150- 7189 Jan, Diabetes 250.00 ; Nondependent cannabis abuse, continuous 305.21 ; Cough 786.2 ; Schizoaffective disorder, unspecified 295.70 ; Sciatica 724.3 ; Other, mixed, or unspecified nondependent drug abuse, unspecified 305.90 ; Chronic pain 338.29 ; GERD (gastroesophageal reflux disease) 530.81 and HTN (hypertension) 401.9 [place] [address] [place] [id number] [place] [address] 67899- 8783 Jan, [place] [address] [address] [id number] [place] [address] 92414- 8215 Jan, [place] [address] 65705- 1465 Jan, Diabetes mellitus without mention of complication, type I [ juvenile type], uncontrolled 250.03 ; Schizoaffective disorder, unspecified 295.70 ; Benign essential hypertension 401.1 ; Chronic pain associated with significant psychosocial dysfunction 338.4 ; Wheezing 786.07 ; Ear ache 388.70 ; Cough 786.2 ; Sciatica 724.3 and Foot pain, bilateral 729.5 [place] [address] 96605- 9813 Dec, [facility] [address] [address]- 0959 Dec, [facility] [address] [address]- 2302 Dec, [facility] [address] [address]- 9017 Dec, [facility] [id number] [place] [address] 67155- 0165 Dec, [facility] [id number] [place] [address] 20671- 3786 Nov, Elevated liver enzymes 790.5 [facility] [id number] [place] [address] 86064- 3272 Nov, [facility] [id number] [place] [address] 87090- 1812 Nov, [facility] [address] [address]- 4647 Nov, [facility] [id number] [place] [address] 55373- 2201 Nov, Diabetes mellitus without mention of complication, type I [ juvenile type], uncontrolled 250.03 ; Benign essential hypertension 401.1 and Nondependent cannabis abuse, continuous 305.21 [facility] [address] [address]- 1187 Oct, Cellulitis 682.9 and Benign essential hypertension 401.1 [facility] [address] [address]- 9317 Oct, [facility] [address] [address]- 7214 September, [facility] [address] [address]- 1269 September, [facility] [address] [address]- 5369 Aug, [facility] [place] [facility] [address] [id number] [place] [address]- 7725 28 Aug, 2014 [facility] [place] [facility] [address] [id number] [place] [address]- 8792 14 Aug, 2014 [facility] [place] [facility] [address] [id number] [place] [address]- 3612 Aug, [facility] [place] [facility] [address] [id number] [place] [address]- 0378 Jul, [facility] [place] [facility] [address] [id number] [place] [address]- 2758 Jul, [facility] [place] [facility] [address] [id number] [place] [address] Jul, [facility] [place] [facility] [address] [id number] [place] [address] Jul, [facility] [place] [facility] [address] [id number] [place] [address] Jul, [facility] [place] [facility] [address] [id number] [place] [address] Jul, [facility] [place] [facility] [address] [facility] [id number] [place] [address] Jun, [facility] [place] [facility] [address] [id number] [place] [address] Jun, [facility] [place] [facility] [address] [id number] [place] [address] Jun, [facility] [place] [facility] [address] [id number] [place] [address] Jun, [facility] [place] [facility] [address] [id number] [place] [address] Jun, [facility] [place] [facility] [address] [id number] [place] [address] May, [facility] [place] [facility] [address] [id number] [place] [address] May, [facility] [address] [id number] [place] [address] May, [facility] [place] [facility] [address] [id number] [place] [address] May, [facility] [place] [facility] [address] [id number] [place] [address] May, [facility] [place] [facility] [address] [id number] [place] [address] May, [facility] [place] [facility] [address] [id number] [place] [address] May, [facility] [place] [facility] [address] [id number] [place] [address] May, [facility] [place] [facility] [address] [id number] [place] [address] Apr, [facility] [address] [id number] [place] [address] Apr, [facility] [place] [facility] [address] [id number] [place] [address] Apr, [facility] [place] [facility] [address] [id number] [id number] [address] Apr, [facility] [place] [facility] [address] [id number] [place] [address] Mar, [facility] [place] [facility] [address] [id number] [place] [address] Mar, [facility] [place] [facility] [address] [id number] [place] [address] Mar, [facility] [place] [facility] [address] [id number] [place] [address] Mar, [facility] [place] [facility] [address] [id number] [place] [address] Feb, [facility] [place] [facility] [address] [id number] [place] [address] Feb, [facility] [place] [facility] [address] [id number] [place] [address] Feb, [facility] [place] [facility] [address] [id number] [place] [address] Feb, [facility] [place] [facility] [address] [id number] [place] [address] Feb, [facility] [place] [facility] [address] [id number] [place] [address] Feb, [facility] [place] [facility] [address] [id number] [place] [address] Jan, [facility] [place] [facility] [address] [id number] [place] [address] Jan, [facility] [place] [facility] [address] [id number] [place] [address] Jan, [facility] [place] [facility] [address] [id number] [place] [address] Jan, [facility] [place] [facility] [address] [id number] [place] [address] Dec, [facility] [place] [facility] [address] [id number] [place] [address] Dec, [facility] [place] [facility] [address] [id number] [place] [address] Dec, [facility] [place] [facility] [address] [id number] [place] [address] Dec, [facility] [place] [facility] [address] [id number] [place] [address] Dec, [facility] [place] [facility] [address] [id number] [place] [address] Dec, [facility] [place] [facility] [address] [id number] [place] [address] Oct, [facility] [place] [facility] [address] [id number] [place] [address] Oct, [facility] [place] [facility] [address] [id number] [place] [address] September, [facility] [place] [facility] [address] [id number] [place] [address] September, [facility] [place] [facility] [address] [id number] [place] [address] September, [facility] [place] [facility] [address] [id number] [place] [address] September, [facility] [place] [facility] [address] [id number] [place] [address] September, [facility] [place] [facility] [address] [id number] [place] [address] September, [facility] [place] [facility] [address] [id number] [place] [address] Aug, [facility] [place] [facility] [address] [id number] [place] [address] Aug, [facility] [place] [facility] [address] [id number] [place] [address] Aug, [facility] [place] [facility] [address] [id number] [place] [address] Aug, [facility] [place] [facility] [address] [id number] [place] [address] Jul, [facility] [place] [facility] [address] [id number] [place] [address] Jul, [facility] [place] [facility] [address] [id number] [place] [address] Jun, [facility] [place] [facility] [address] [id number] [place] [address] Jun, [facility] [place] [facility] [address] [id number] [place] [address] May, [facility] [address] [id number] [place] [address] May, [facility] [address] [id number] [place] [address] Jan, [facility] [address] [id number] [place] [address] Dec, [facility] [address] [id number] [place] [address] Jun, [facility] [address] [id number] [place] [address] May, [facility] [address] [id number] [place] [address] Nov, [facility] [address] [id number] [place] [address] September, [facility] [address] [id number] [place] [address] Aug, [facility] [address] [id number] [place] [address] Aug, [facility] [address] [id number] [place] [address] Aug, [facility] [address] [id number] [place] [address] Aug, [facility] [address] [id number] [place] [address] Nov, [facility] [place] [facility] [address] [id number] [place] [address] Oct, [facility] [place] [facility] [address] [id number] [place] [address] Jul, [facility] [address] [id number] [place] [address] Feb, [facility] [address] [facility] [id number] [place] [address] Feb, [facility] [address] [id number] [place] [address] Apr, [facility] [address] [facility] [id number] [place] [address] Apr, [facility] [address] [id number] [place] [address] 2005 Feb, [facility] [address] [facility] [id number] [place] [address] Feb, [facility] [address] [facility] [id number] [place] [address] 2012 Jul, IMMUNIZATIONS No Known Immunizations SOCIAL HISTORY [...]
--- OUTSIDE RECORDS SUMMARY | 2018-09-15 22:43 | XMS REPORT ---
Author Author YVES BLEVINS [facility] Address [address] [place] [address] Care Team Providers Care Supply Cataloguer Name Role Phone YVES BLEVINS Unavailable PROBLEMS Type Condition ICD9-CM Code NAC19-MD Code Onset Dates Condition Status SNOMED Code Problem HTN (hypertension) I10 Active 61486411 Problem Restless legs syndrome G25.81 Active 748057332 Problem GERD (gastroesophageal reflux disease) K21.9 Active 241344809 Problem Chronic hepatitis C without hepatic coma B18.2 Active 378082798 Problem ED (erectile dysfunction) N52.9 Active 534662109 Problem PAD (peripheral artery disease) I73.9 Active 708157833 Problem Ulcer of right foot, unspecified ulcer stage L97.519 Active 80637140 Problem 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 522422411 Problem COPD (chronic obstructive pulmonary disease) J44.9 Active 39966081 Problem DM neuro manif type II E11.49 Active 40238049 Problem Sinusitis, unspecified chronicity, unspecified location J32.9 Active 80715277 ALLERGIES No Information ENCOUNTERS Encounter Location Date Diagnosis [place] [id number] [place] [address] 22646- 0096 Dec, Back pain M54.9 [facility] [id number] [place] [address] 68845- 5015 Dec, 2018 Foot infection L08.9 and Type 2 diabetes mellitus with other diabetic neurological complication E11.49 [facility] [id number] [place] [address] 01433- 3593 Nov, Cellulitis of toe of right foot L03.031 ; Polyneuropathy in diseases classified elsewhere G63 and HTN (hypertension) I10 [place] [address] [id number] [place] [address] 22302- 9487 Nov, [facility] [address] [id number] [place] [address] 5340 Nov, [facility] [address] [facility] [id number] [place] [address], [place] [address] 1527 Nov, Back pain M54.9 [facility] [address] [facility] [id number] [place] [address] 1840 Nov, Shortness of breath R06.02 [facility] [address] [id number] [place] [address] 5167 Nov, [facility] [id number] [place] [address], [place] [address] 9924 Oct, [facility] [address] [facility] [id number] [place] [address]- 4432 Oct, [facility] [address] [place] [id number] [place] [address], [place] [address]- 8275 Oct, [facility] [address] [facility] [id number] [place] [address]- 6921 Oct, [facility] [address] [place] [address] [id number] [place] [address] 3295 Oct, [facility] [address] [id number] [place] [address]- 7413 Oct, Back pain M54.9 [facility] [address] [place] [address] [id number] [place] [address]- 6050 Oct, Back pain M54.9 [facility] [address] [facility] [id number] [place] [address]- 5042 Oct, [facility] [address] [facility] [id number] [place] [address]- 0885 September, [facility] [address] [facility] [id number] [place] [address]- 3047 September, [facility] [address] [place] [address] [id number] [place] [address]- 3645 September, [facility] [address] [address] 7[address] September, Type 2 diabetes mellitus with other diabetic neurological complication E11.49 and Hypotension, unspecified hypotension type I95.9 [facility] [address] [address] 4629 September, [facility] [id number] [place] [address] 48272- 0940 September, [facility] [id number] [place] [address] 28216- 2529 September, Back pain M54.9 [facility] [id number] [place] [address] 10452- 9178 Aug, [facility] [id number] [place] [address] 75320- 3330 Aug, Acute cystitis with hematuria N30.01 ; Ulcer of right foot, unspecified ulcer stage L97.519 ; HTN (hypertension) I10 ; COPD (chronic obstructive pulmonary disease) J44.9 and DM neuro manif type II E11.49 [facility] [id number] [place] [address] 82863- 7117 Aug, Back pain M54.9 [facility] [id number] [place] [address] 77653- 2957 Jul, [facility] [id number] [place] [address] 83706- 6016 Jul, Back pain M54.9 [facility] [address] [place] [address] 95301- 6818 Jul, [facility] [id number] [place] [address] 19522- 6900 Jul, DM neuro manif type II E11.49 and Ulcer of right foot, unspecified ulcer stage L97.519 [facility] [id number] [place] [address] 66688- 0959 Jun, [facility] [id number] [place] [address] 72964- 4337 Jun, [facility] [id number] [place] [address] 50672- 7464 May, Type 2 diabetes mellitus with other diabetic neurological complication E11.49 ; GERD (gastroesophageal reflux disease) K21.9 and PAD ( peripheral artery disease) I73.9 [facility] [address] [address]- 5775 May, Decubital ulcer L89.90 ; Diabetes E11.9 and GERD ( gastroesophageal reflux disease) K21.9 [facility] [address] 53647- 7956 May, [facility] [id number] [place] [address] 14119- 4747 Apr, [facility] [id number] [place] [address] 41622- 9062 Mar, [facility] [id number] [place] [address] 09775- 3647 Mar, [facility] [id number] [place] [address] 30797- 3541 Feb, [facility] [id number] [place] [address] 75987- 9964 Feb, [facility] [id number] [place] [address] 11328- 2912 Jan, [facility] [id number] [place] [address] 12779- 9639 Jan, HTN (hypertension) I10 [facility] [id number] [place] [address] 53081- 6685 Jan, [facility] [id number] [place] [address] 63794- 5188 Dec, Back pain M54.9 [facility] [address] [address]- 8307 Dec, Back pain M54.9 [facility] [id number] [place] [address] 87278 -8243 Dec, Encounter for immunization Z23 and Puncture wound of right foot, initial encounter S91.331A [facility] [id number] [place] [address] 62675- 4443 Dec, [facility] [id number] [place] [address] 25518- 9881 Nov, [facility] [id number] [place] [address] 28484- 4641 Nov, COPD (chronic obstructive pulmonary disease) J44.9 [facility] [id number] [place] [address] 14402- 7215 Nov, [facility] [id number] [place] [address] 57007- 7075 Oct, [facility] [id number] [place] [address] 47022- 6113 Oct, [facility] [id number] [place] [address] 41204- 4160 September, Onychomycosis B35.1 and DM neuro manif type II E11.49 [facility] [address] [place] [address] 49882- 9902 September, [facility] [id number] [place] [address] 90794- 5798 Aug, [facility] [id number] [place] [address] 95358- 5769 Jul, Sinusitis, unspecified chronicity, unspecified location J32.9 and Cough R05 [facility] [address] [address]- 5039 Jul, Back pain M54.9 [facility] [id number] [place] [address] 00686- 0632 14 Jun, 2016 Back pain M54.9 [facility] [id number] [place] [address] 28752- 3120 06 Jun, 2016 COPD (chronic obstructive pulmonary disease) J44.9 [facility] [id number] [place] [address] 85243- 5466 May, [facility] [address] 33213- 3345 May, [facility] [id number] [place] [address] 82754- 7556 May, Back pain M54.9 [facility] [id number] [place] [address] 64776- 1501 May, [place] [id number] [place] [address] 00781- 5262 May, [facility] [id number] [place] [address] 27701- 6933 May, Diabetes E11.9 [place] [address] [id number] [place] [address] 24754- 7855 May, Diabetes E11.9 ; GERD (gastroesophageal reflux [...] C screening test Z11.59 [facility] [id number] [place] [address] 60057- 5383 May, HTN (hypertension) I10 [facility] [id number] [place] [address] 40477- 3139 Apr, [facility] [address] 05866- 4161 Apr, [facility] [id number] [place] [address] 86525- 7969 Apr, [facility] [id number] [place] [address] 89634- 9245 Apr, [facility] [id number] [place] [address] 04897- 7613 Apr, [facility] [id number] [place] [address] 24470- 3558 Mar, [facility] [id number] [place] [address] 72456- 0798 Mar, [facility] [id number] [place] [address] 47254- 5365 Mar, [facility] [id number] [place] [address] 63974- 3431 Mar, [facility] [id number] [place] [address] 18340- 4519 Mar, Dental examination Z01.20 [facility] [id number] [place] [address] 35443- 1220 Feb, [facility] [id number] [place] [address] 86418- 6211 Feb, [facility] [id number] [place] [address] 61929- 8592 Feb, Back pain M54.9 [facility] [address] [place] [address] 06571- 4379 Jan, [facility] [id number] [place] [address] 22982- 4041 Jan, [facility] [address] [address]- 0195 Dec, Diabetes E11.9 ; GERD (gastroesophageal reflux disease) K21.9 ; ED (erectile dysfunction) N52.9 ; HTN (hypertension) I10 ; Insomnia G47.00 ; COPD (chronic obstructive pulmonary disease) J44.9 ; Neuropathy G62.9 and Bipolar depression F31.30 [facility] [id number] [place] [address] 26518- 0321 Dec, Type 2 diabetes mellitus with other diabetic neurological complication E11.49 and Onychomycosis B35.1 [facility] [id number] [place] [address] 56379- 4286 Dec, [facility] [id number] [place] [address] 74993- 2645 Dec, [facility] [id number] [place] [address] 34247- 8194 Dec, [facility] [id number] [place] [address] 68967- 6769 Dec, [facility] [id number] [place] [address] 13996- 2024 Nov, [facility] [id number] [place] [address] 62291- 9114 Nov, [facility] [id number] [place] [address] 68175- 6873 Oct, [facility] [id number] [place] [address] 17602- 9148 Oct, [facility] [id number] [place] [address] 13723- 0855 Oct, Back pain M54.9 [facility] [id number] [place] [address] 80568- 5872 Oct, [facility] [id number] [place] [address] 99784- 1954 Oct, [facility] [id number] [place] [address] 10108- 9074 Oct, [facility] [id number] [place] [address] 96342- 5540 Oct, HTN (hypertension) I10 [facility] [address] [place] [address] 82141- 0400 Oct, Back pain M54.9 [facility] [id number] [place] [address] 95898- 2277 Oct, Chronic pain syndrome G89.4 [facility] [id number] [place] [address] 47676- 1263 September, Back pain M54.9 [facility] [id number] [place] [address] 11578- 2597 September, HTN (hypertension) I10 [place] [id number] [place] [address] 66065- 7920 Aug, Porokeratosis Q82.8 ; Onychomycosis B35.1 and Type 2 diabetes mellitus with other diabetic neurological complication E11.49 [place] [id number] [place] [address] 77931- 1858 Aug, GERD (gastroesophageal reflux disease) K21.9 ; Diabetes E11.9 ; HTN (hypertension) I10 ; Insomnia G47.00 ; Restless legs syndrome G25.81 ; COPD (chronic obstructive pulmonary disease) J44.9 ; Back pain M54.9 and Bipolar 1 disorder F31.9 [facility] [address] [address]- 5499 Aug, [facility] [id number] [place] [address] 41246- 0255 Aug, [facility] [id number] [place] [address] 43880- 6887 Aug, [facility] [id number] [place] [address] 28797- 1582 Aug, [facility] [id number] [place] [address] 63190- 6901 Jul, [facility] [address] [place] [address]- 6053 31 Jul, 2015 [facility] [id number] [place] [address] 05841- 6352 30 Jul, 2015 [facility] [id number] [place] [address] 30142- 2724 16 Jul, 2015 [facility] [id number] [place] [address] 84135- 6438 15 Jul, 2015 [facility] [id number] [place] [address] 82963- 2777 Jul, [facility] [id number] [place] [address] 15194- 1117 Jun, Decubital ulcer L89.90 ; Diabetes E11.9 ; Back pain M54.9 ; HTN (hypertension) I10 and COPD (chronic obstructive pulmonary disease) J44.9 [facility] [id number] [place] [address] 58737- 3954 Jun, [facility] [id number] [place] [address] 55128- 8095 Jun, [facility] [id number] [place] [address] 62669- 1113 Jun, [facility] [id number] [place] [address] 51777- 7975 Jun, [facility] [id number] [place] [address] 54523- 7197 Jun, Diabetes E11.9 ; Insomnia G47.00 ; Decubital ulcer L89.90 ; GERD (gastroesophageal reflux disease) K21.9 ; Back pain M54.9 ; Superficial fungus infection of skin B36.9 and HTN (hypertension) I10 [address] [id number] [address] 02 Jun, 2015 Dental examination Z01.20 [facility] [address] [place] [address] 00699- 1984 May, [facility] [address] [address]- 3118 May, [facility] [id number] [place] [address] 09875- 2117 May, [facility] [id number] [place] [address] 02221- 8093 May, Diabetes E11.9 ; HTN (hypertension) I10 and Decubital ulcer L89.90 [facility] [address] [place] [address] 56487- 4592 May, HTN (hypertension) I10 ; Decubital ulcer L89.90 and Diabetes E11.9 [facility] [id number] [place] [address] 43751- 8353 30 Apr, 2015 Diabetes E11.9 ; GERD (gastroesophageal reflux disease) K21.9 ; Back pain M54.9 ; HTN (hypertension) I10 ; Restless legs syndrome G25.81 and Decubital ulcer L89.90 [place] [address] [address]- 7881 Apr, [place] [id number] [place] [address] 94038- 9228 Apr, Diabetes E11.9 ; HTN (hypertension) I10 ; Restless legs syndrome G25.81 ; GERD (gastroesophageal reflux disease) K21.9 and COPD ( chronic obstructive pulmonary disease) J44.9 [facility] [address] [address]- 7065 Mar, [facility] [address] [address]- 2404 Mar, [facility] [id number] [place] [address] 19492- 2290 Mar, Diabetes E11.9 ; Abscess L02.91 and Restless legs syndrome G25.81 [facility] [id number] [place] [address] 61187- 3871 Mar, [facility] [id number] [place] [address] 98061- 6535 Feb, GERD (gastroesophageal reflux disease) K21.9 ; Back pain M54.9 ; ED (erectile dysfunction) N52.9 ; Diabetes E11.9 ; HTN (hypertension) I10 and Insomnia G47.00 [place] [address] 96473- 2671 Feb, [place] [address] 00851- 4999 Feb, [place] [address] 82196- 4720 Jan, [place] [address] 14461- 0484 Jan, Diabetes 250.00 ; Nondependent cannabis abuse, continuous 305.21 ; Cough 786.2 ; Schizoaffective disorder, unspecified 295.70 ; Sciatica 724.3 ; Other, mixed, or unspecified nondependent drug abuse, unspecified 305.90 ; Chronic pain 338.29 ; GERD (gastroesophageal reflux disease) 530.81 and HTN (hypertension) 401.9 [place] [id number] [place] [address] 10023- 9349 Jan, [place] [id number] [place] [address] 40075- 2072 Jan, [place] [address] 21581- 9198 Jan, Chronic pain associated with significant psychosocial dysfunction 338.4 ; Diabetes mellitus without mention of complication, type I [ juvenile type], uncontrolled 250.03 ; Benign essential hypertension 401.1 ; Schizoaffective disorder, unspecified 295.70 ; Wheezing 786.07 ; Ear ache 388.70 ; Cough 786.2 ; Sciatica 724.3 and Foot pain, bilateral 729.5 [place] [address] 53053- 1963 Dec, [facility] [address] [address]- 2348 Dec, [facility] [address] [address]- 0967 Dec, [facility] [address] [address]- 6162 Dec, [facility] [id number] [place] [address] 02136- 5987 Dec, [facility] [id number] [place] [address] Nov, Elevated liver enzymes 790.5 [facility] [address] [address] Nov, [facility] [id number] [place] [address]- [address] Nov, [facility] [address] [address] Nov, [facility] [id number] [place] [address] Nov, Benign essential hypertension 401.1 ; Diabetes mellitus without mention of complication, type I [juvenile type], uncontrolled 250.03 and Nondependent cannabis abuse, continuous 305.21 [facility] [address] [address] Oct, Cellulitis 682.9 and Benign essential hypertension 401.1 [facility] [address] [address] Oct, [facility] [address] [address] September, [facility] [address] [address] September, [facility] [address] [address] Aug, [facility] [place] [facility] [address] [id number] [place] [address] 28 Aug, 2014 [facility] [place] [facility] [address] [id number] [place] [address] 14 Aug, 2014 [facility] [place] [facility] [address] [id number] [place] [address] Aug, [facility] [place] [facility] [address] [id number] [place] [address] Jul, [facility] [place] [facility] [address] [id number] [place] [address] Jul, [facility] [place] [facility] [address] [id number] [place] [address] Jul, [facility] [place] [facility] [address] [id number] [place] [address] Jul, [facility] [place] [facility] [address] [id number] [place] [address] 2410 Jul, [facility] [place] [facility] [address] [id number] [place] [address]- [address] Jul, [facility] [place] [facility] [address] [facility] [id number] [place] [address] Jun, [facility] [place] [facility] [address] [id number] [place] [address]- [address]887 Jun, [facility] [place] [facility] [address] [id number] [place] [address]- [address] Jun, [facility] [place] [facility] [address] [id number] [place] [address] 40[address] Jun, [facility] [place] [facility] [address] [id number] [place] [address] Jun, [facility] [place] [facility] [address] [id number] [place] [address] May, [facility] [place] [facility] [address] [id number] [place] [address] May, [facility] [address] [id number] [place] [address] May, [facility] [place] [facility] [address] [id number] [place] [address]- [address] May, [facility] [place] [facility] [address] [id number] [place] [address] May, [facility] [place] [facility] [address] [id number] [place] [address] May, [facility] [place] [facility] [address] [id number] [place] [address] May, [facility] [place] [facility] [address] [id number] [place] [address] May, [facility] [place] [facility] [address] [id number] [place] [address]- [address] Apr, [facility] [address] [id number] [place] [address]- [address] Apr, [facility] [place] [facility] [address] [id number] [place] [address]- 1001 Apr, [facility] [place] [facility] [address] [id number] [place] [address] Apr, [facility] [facility] [place] [facility] [address] [id number] [place] [address] Mar, [facility] [place] [facility] [address] [id number] [place] [address] Mar, [facility] [place] [facility] [address] [id number] [place] [address] Mar, [facility] [place] [facility] [address] [id number] [place] [address] Mar, [facility] [place] [facility] [address] [id number] [place] [address] Feb, [facility] [place] [facility] [address] [id number] [place] [address] Feb, [facility] [place] [facility] [address] [id number] [place] [address] Feb, [facility] [place] [facility] [address] [id number] [place] [address] Feb, [facility] [place] [facility] [address] [id number] [place] [address] Feb, [facility] [place] [facility] [address] [id number] [place] [address] Feb, [facility] [place] [facility] [address] [id number] [place] [address] Jan, [facility] [place] [facility] [address] [id number] [place] [address] Jan, [facility] [place] [facility] [address] [id number] [place] [address] Jan, [facility] [place] [facility] [address] [id number] [place] [address] Jan, [facility] [place] [facility] [address] [id number] [place] [address] Dec, [facility] [place] [facility] [address] [id number] [place] [address] Dec, [facility] [place] [facility] [address] [id number] [address] Dec, [facility] [place] [facility] [address] [id number] [place] [address] Dec, [facility] [place] [facility] [address] [id number] [place] [address] Dec, [facility] [place] [facility] [address] [id number] [place] [address] Dec, [facility] [place] [facility] [address] [id number] [place] [address] Oct, [facility] [place] [facility] [address] [id number] [place] [address] Oct, [facility] [place] [facility] [address] [id number] [place] [address] September, [facility] [place] [facility] [address] [id number] [place] [address] September, [facility] [place] [facility] [address] [id number] [place] [address] September, [facility] [place] [facility] [address] [id number] [place] [address] September, [facility] [place] [facility] [address] [id number] [place] [address] September, [facility] [place] [facility] [address] [id number] [place] [address] September, [facility] [place] [facility] [address] [id number] [place] [address] Aug, [facility] [place] [facility] [address] [id number] [place] [address] Aug, [facility] [place] [facility] [address] [id number] [place] [address] 74[address] Aug, [facility] [place] [facility] [address] [id number] [place] [address] Aug, [facility] [place] [facility] [address] [id number] [place] [address] Jul, [facility] [place] [facility] [address] [id number] [place] [address] Jul, [facility] [place] [facility] [address] [id number] [place] [address] Jun, [facility] [place] [facility] [address] [id number] [place] [address] Jun, [facility] [place] [facility] [address] [id number] [place] [address] May, [facility] [address] [id number] [place] [address] May, [facility] [address] [id number] [place] [address] Jan, [facility] [address] [id number] [place] [address] Dec, [facility] [address] [id number] [place] [address] Jun, [facility] [address] [id number] [place] [address] May, [facility] [address] [id number] [place] [address] Nov, [facility] [address] [id number] [place] [address] September, [facility] [address] [id number] [place] [address] Aug, [facility] [address] [id number] [place] [address]- [address]87 Aug, [facility] [address] [id number] [place] [address] Aug, [facility] [address] [id number] [place] [address] 4696 Aug, [facility] [address] [id number] [place] [address] Nov, [facility] [place] [facility] [address] [id number] [place] [address] Oct, [facility] [place] [facility] [address] [id number] [place] [address] Jul, [facility] [address] [id number] [place] [address] Feb, [facility] [address] [facility] [id number] [address] Feb, [facility] [address] [facility] [id number] [place] [address] Apr, [facility] [address] [facility] [id number] [place] [address] Apr, [facility] [address] [facility] [id number] [place] [address] Feb, [facility] [address] [facility] [id number] [place] [address] Feb, [facility] [address] [facility] [id number] [place] [address] Jul, IMMUNIZATIONS No Known Immunizations SOCIAL HISTORY Never Assessed REASON FOR VISIT Hydrocodone and Lyrica- 09/18 PLAN OF CARE VITAL SIGNS MEDICATIONS Medication Instructions Dosage Frequency Start Date End Date Duration Status Hydrocodone-Ibuprofen 7.5-200 MG Orally 3 times a day 1 tablet as needed 8h September, 28 days Active Lyrica 150 MG Orally [...]
--- OUTSIDE RECORDS SUMMARY | 2018-09-15 22:43 | XMS REPORT ---
Author Author YVES BLEVINS [facility] Address [address] [place] [address] Care Team Providers Care Shook Splicer Name Role Phone YVES BLEVINS Unavailable PROBLEMS Type Condition ICD9-CM Code ZTV16-AB Code Onset Dates Condition Status SNOMED Code Problem HTN (hypertension) I10 Active 81400011 Problem Restless legs syndrome G25.81 Active 364742982 Problem GERD (gastroesophageal reflux disease) K21.9 Active 642894612 Problem Chronic hepatitis C without hepatic coma B18.2 Active 607585396 Problem ED (erectile dysfunction) N52.9 Active 838594549 Problem PAD (peripheral artery disease) I73.9 Active 642186349 Problem Ulcer of right foot, unspecified ulcer stage L97.519 Active 00201270 Problem 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 974056754 Problem COPD (chronic obstructive pulmonary disease) J44.9 Active 68634209 Problem DM neuro manif type II E11.49 Active 96931376 Problem Sinusitis, unspecified chronicity, unspecified location J32.9 Active 06547138 ALLERGIES No Information ENCOUNTERS Encounter Location Date Diagnosis [place] [id number] [place] [address] 82900- 7241 Dec, Back pain M54.9 [facility] [id number] [place] [address] 52561- 6636 Dec, 2018 Foot infection L08.9 and Type 2 diabetes mellitus with other diabetic neurological complication E11.49 [facility] [id number] [place] [address] 28636- 3033 Nov, Cellulitis of toe of right foot L03.031 ; Polyneuropathy in diseases classified elsewhere G63 and HTN (hypertension) I10 [place] [address] [place] [id number] [place] [address] 74655- 6606 Nov, [facility] [address] [id number] [place] [address] 6461 Nov, [facility] [address] [facility] [id number] [place] [address], [place] [address]- 1061 Nov, Back pain M54.9 [facility] [address] [facility] [id number] [place] [address]- 0179 Nov, Shortness of breath R06.02 [facility] [address] [id number] [place] [address] 3349 Nov, [facility] [address] [id number] [place] [address], [place] [address]- 8049 Oct, [facility] [address] [facility] [id number] [place] [address]- 0853 Oct, [facility] [address] [place] [id number] [place] [address], [place] [address]- 9356 Oct, [facility] [address] [facility] [id number] [place] [address]- 6220 Oct, [facility] [address] [place] [id number] [place] [address]- 4221 Oct, [facility] [address] [place] [id number] [place] [address]- 0661 Oct, Back pain M54.9 [facility] [address] [place] [id number] [place] [address]- 0667 Oct, Back pain M54.9 [facility] [address] [facility] [id number] [place] [address]- 0021 Oct, [facility] [address] [facility] [id number] [place] [address]- 1695 September, [facility] [address] [facility] [id number] [place] [address]- 5511 September, [facility] [address] [place] [address] [id number] [place] [address] 7111 September, [facility] [address], [place] [address] 1137 September, Type 2 diabetes mellitus with other diabetic neurological complication E11.49 and Hypotension, unspecified hypotension type I95.9 [facility] [address], [place] [address] 7836 September, [facility] [id number] [place] [address] 56138- 7455 September, [facility] [id number] [place] [address] 40439- 7793 September, Back pain M54.9 [facility] [id number] [place] [address] 66244- 8406 Aug, [facility] [id number] [place] [address] 14004- 8131 Aug, Acute cystitis with hematuria N30.01 ; Ulcer of right foot, unspecified ulcer stage L97.519 ; HTN (hypertension) I10 ; COPD (chronic obstructive pulmonary disease) J44.9 and DM neuro manif type II E11.49 [facility] [id number] [place] [address] 18853- 9379 Aug, Back pain M54.9 [facility] [id number] [place] [address] 87871- 3492 Jul, [facility] [id number] [place] [address] 42479- 3837 Jul, Back pain M54.9 [facility] [id number] [place] [address] 88191- 8711 Jul, [facility] [address] [address] [id number] [place] [address] 43324- 0700 Jul, DM neuro manif type II E11.49 and Ulcer of right foot, unspecified ulcer stage L97.519 [facility] [id number] [place] [address] 01717- 9877 Jun, [facility] [id number] [place] [address] 48359- 2184 Jun, [facility] [id number] [place] [address] 48520- 2292 May, Type 2 diabetes mellitus with other diabetic neurological complication E11.49 ; GERD (gastroesophageal reflux disease) K21.9 and PAD ( peripheral artery disease) I73.9 [facility] [address] 43232- 3657 May, Decubital ulcer L89.90 ; Diabetes E11.9 and GERD ( gastroesophageal reflux disease) K21.9 [facility] [address] 23431- 4096 May, [facility] [id number] [place] [address] 41587- 7296 Apr, [facility] [id number] [place] [address] 20897- 6451 Mar, [facility] [id number] [place] [address] 20534- 0446 Mar, [facility] [id number] [place] [address] 10133- 9351 Feb, [facility] [id number] [place] [address] 99362- 6924 Feb, [facility] [id number] [place] [address] 07802- 9480 Jan, [facility] [id number] [place] [address] 48188- 2717 Jan, HTN (hypertension) I10 [facility] [id number] [place] [address] 52135- 8486 Jan, [facility] [id number] [place] [address] 62397- 7273 Dec, Back pain M54.9 [facility] [address], [place] [address]- 1225 Dec, Back pain M54.9 [facility] [id number] [place] [address] 48262 -0963 Dec, Encounter for immunization Z23 and Puncture wound of right foot, initial encounter S91.331A [facility] [id number] [place] [address] 06647- 4764 Dec, [facility] [id number] [place] [address] 81112- 2672 Nov, [facility] [id number] [place] [address] 81587- 5960 Nov, COPD (chronic obstructive pulmonary disease) J44.9 [facility] [address] [place] [id number] [place] [address] 09417- 7801 Nov, [facility] [id number] [place] [address] 51869- 3408 Oct, [facility] [id number] [place] [address] 25776- 6222 Oct, [facility] [id number] [place] [address] 38014- 2807 September, Onychomycosis B35.1 and DM neuro manif type II E11.49 [facility] [id number] [place] [address] 82307- 8665 September, [facility] [id number] [place] [address] 00200- 7989 Aug, [facility] [id number] [place] [address] 95398- 3854 Jul, Sinusitis, unspecified chronicity, unspecified location J32.[address] [facility] [address], [place] [address]- 9384 Jul, Back pain M54.9 [facility] [id number] [place] [address] 26585- 4836 14 Jun, [address] [facility] [id number] [place] [address] 69503- 0870 06 Jun, 2016 COPD (chronic obstructive pulmonary disease) J44.9 [facility] [id number] [place] [address] 05491- 8919 May, [facility] [address] 72259- 2513 May, [facility] [address] [place] [id number] [place] [address] 08717- 9466 May, Back pain M54.9 [facility] [address] [place] [id number] [place] [address] 72443- 9544 May, [place] [address] [place] [id number] [place] [address] 26213- 2850 May, [facility] [id number] [place] [address] 54498- 3885 May, Diabetes E11.9 [place] [address] [place] [address] [place] [address] 52025- 8047 May, Diabetes E11.9 ; GERD (gastroesophageal reflux [...] for hepatitis C screening test Z11.59 [facility] [address] [place] [id number] [place] [address] 13325- 4614 May, HTN (hypertension) I10 [facility] [address] [place] [id number] [place] [address] 05201- 6019 Apr, [facility] [address] 32267- 4174 Apr, [facility] [id number] [place] [address] 42662- 1824 Apr, [facility] [address] [place] [address] 82993- 6994 Apr, [facility] [id number] [place] [address] 66323- 5626 Apr, [facility] [id number] [place] [address] 60788- 3010 Mar, [facility] [id number] [place] [address] 27770- 8048 Mar, [facility] [id number] [place] [address] 56213- 3760 Mar, [facility] [id number] [place] [address] 98775- 4725 Mar, [facility] [id number] [place] [address] 33618- 7648 Mar, Dental examination Z01.20 [facility] [id number] [place] [address] 13968- 4411 Feb, [facility] [id number] [place] [address] 35921- 7081 Feb, [facility] [id number] [place] [address] 11519- 3116 Feb, Back pain M54.9 [facility] [address] [place] [address] 01392- 1624 Jan, [facility] [id number] [place] [address] 94496- 2578 Jan, [facility] [address], [place] [address]- 0169 Dec, Diabetes E11.9 ; GERD (gastroesophageal reflux disease) K21.9 ; ED (erectile dysfunction) N52.9 ; HTN (hypertension) I10 ; Insomnia G47.00 ; COPD (chronic obstructive pulmonary disease) J44.9 ; Neuropathy G62.9 [address] F[address].30 [facility] [id number] [place] [address] 72991- 9822 Dec, Type 2 diabetes mellitus with other diabetic neurological complication E11.[address] [facility] [address] [place] [address] 32602- 2238 Dec, [facility] [id number] [place] [address] 78190- 9651 Dec, [facility] [address] [place] [address] 19411- 0940 Dec, [facility] [address] [place] [address] 37224- 5229 Dec, [facility] [address] [place] [address] 15519- 5289 Nov, [facility] [address] [place] [address] 47680- 7798 Nov, [facility] [address] [place] [address] 14009- 0783 Oct, [facility] [address] [place] [address] 46360- 9191 Oct, [facility] [address] [place] [address] 19983- 5878 Oct, Back pain M54.9 [facility] [address] [place] [address] 54864- 9443 Oct, [facility] [address] [place] [address] 75049- 9560 Oct, [facility] [address] [place] [address] 53036- 7729 Oct, [facility] [address] [place] [address] 58459- 8854 Oct, HTN (hypertension) I10 [facility] [address] [place] [address] 06474- 2336 Oct, Back pain M54.9 [facility] [address] [place] [address] 30280- 7651 Oct, Chronic pain syndrome G89.4 [facility] [address] [place] [address] 58928- 5244 September, Back pain M54.9 [facility] [address] [place] [address] 03434- 8852 September, HTN (hypertension) I10 [place] [address] [place] [address] 34325- 7417 Aug, Porokeratosis Q82.8 ; Onychomycosis B35.1 and Type 2 diabetes mellitus with other diabetic neurological complication E11.49 [place] [address] [place] [address] 82812- 0968 Aug, GERD (gastroesophageal reflux disease) K21.9 ; Diabetes E11.9 ; HTN (hypertension) I10 ; Insomnia G47.00 ; Restless legs syndrome G25.81 ; COPD (chronic obstructive pulmonary disease) J44.9 ; Back pain M54.9 and Bipolar [address] [facility] [address], [place] [address]- 1497 Aug, [facility] [address] [place] [address] 75540- 1937 Aug, [facility] [address] [place] [address] 02515- 4190 Aug, [facility] [address] [place] [address] 83002- 7789 Aug, [facility] [address] [place] [address] 99847- 4155 Jul, [facility] [address] [place] [address]- 7303 31 Jul, 2015 [facility] [address] [place] [address] 53112- 9135 30 Jul, 2015 [facility] [address] [place] [address] 69639- 6748 16 Jul, 2015 [facility] [address] [place] [address] 23233- 0930 15 Jul, 2015 [facility] [address] [place] [address] 94630- 8739 Jul, [facility] [address] [place] [address] 02425- 8426 Jun, Decubital ulcer L89.90 ; Diabetes E11.9 ; Back pain M54.9 ; HTN (hypertension) I10 and COPD (chronic obstructive pulmonary disease) J44.9 [facility] [address] [place] [address] 02455- 2413 Jun, [facility] [address] [place] [address] 95592- 3991 Jun, [facility] [address] [place] [address] 86378- 9593 Jun, [facility] [address] [place] [address] 78616- 1787 Jun, [facility] [address] [place] [address] 40154- 8013 Jun, Diabetes E11.9 ; Insomnia G47.00 ; Decubital ulcer L89.90 ; GERD (gastroesophageal reflux disease) K21.9 ; Back pain M54.9 ; Superficial fungus infection of skin B36.9 and HTN (hypertension) I10 [address] [id number] [id number] 02 Jun, [address] [facility] [address] [place] [address] 60501- 8422 May, [facility] [address], [place] [address]- [address] May, [facility] [id number] [place] [address] 38981- 9240 May, [facility] [id number] [place] [address] 95242- 6793 May, Diabetes E11.9 ; HTN (hypertension) I10 and Decubital ulcer L89.90 [facility] [address] [place] [address] 42913- 4931 May, HTN (hypertension) I10 ; Decubital ulcer L89.[address] [facility] [address] [place] [address] 81244- 9950 30 Apr, 2015 Diabetes E11.9 ; GERD (gastroesophageal reflux disease) K21.9 ; Back pain M54.9 ; HTN (hypertension) I10 ; Restless legs syndrome G25.81 and Decubital ulcer L89.90 [place] [address] [place] [address]- 1551 Apr, [place] [address] [place] [address] 45050- 0999 Apr, Diabetes E11.9 ; HTN (hypertension) I10 ; Restless legs syndrome G25.81 ; GERD (gastroesophageal reflux disease) K21.9 and COPD ( chronic obstructive pulmonary disease) J44.9 [facility] [address] [address] 5508 Mar, [facility] [address], [place] [address]- 9992 Mar, [facility] [address] [place] [address] 87922- 1015 Mar, Diabetes E11.9 ; Abscess L02.91 and Restless legs syndrome G25.81 [facility] [id number] [place] [address] 69828- 9004 Mar, [facility] [id number] [place] [address] 12745- 2650 Feb, GERD (gastroesophageal reflux disease) K21.9 ; Back pain M54.9 ; ED (erectile dysfunction) N52.9 ; Diabetes E11.9 ; HTN (hypertension) I10 and Insomnia G47.00 [place] [address] [address]- [address] Feb, [place] [address] [address]- [address] Feb, [place] [address] [address]- [address] Jan, [place] [address] 6[address]- [address]9 Jan, Diabetes 250.00 ; Nondependent cannabis abuse, continuous 305.21 ; Cough 786.2 ; Schizoaffective disorder, unspecified 295.70 ; Sciatica 724.3 ; Other, mixed, or unspecified nondependent drug abuse, unspecified 305.90 ; Chronic pain 338.29 ; GERD (gastroesophageal reflux disease) 530.81 and HTN (hypertension) 401.9 [place] [id number] [place] [address] 04676- 9920 Jan, [place] [id number] [place] [address] 58861- 1692 Jan, [place] [address] [address]- [address]39 Jan, Diabetes mellitus without mention of complication, type I [ juvenile type], uncontrolled 250.03 ; Schizoaffective disorder, unspecified 295.70 ; Benign essential hypertension 401.1 ; Chronic pain associated with significant psychosocial dysfunction 338.4 ; Wheezing 786.07 ; Ear ache 388.70 ; Cough 786.2 ; Sciatica 724.3 and Foot pain, bilateral 729.5 [place] [address] [address]- [address] Dec, [facility] [address] [place] [address] Dec, [facility] [address] [address] Dec, [facility] [address] [address] Dec, [facility] [id number] [place] [address]- [address]379 Dec, [facility] [id number] [place] [address] 68418- 5709 Nov, Elevated liver enzymes 790.5 [facility] [id number] [place] [address] 64750- 8348 Nov, [facility] [id number] [place] [address]- 1165 Nov, [facility] [address] [address] Nov, [facility] [id number] [place] [address] 80435- 8302 Nov, Diabetes mellitus without mention of complication, type I [ juvenile type], uncontrolled 250.03 ; Benign essential hypertension 401.1 and Nondependent cannabis abuse, continuous 305.21 [facility] [address] [place] [address] Oct, Cellulitis 682.9 and Benign essential hypertension 401.1 [facility] [address] [place] [address] Oct, [facility] [id number] [address] September, [facility] [id number] [address] September, [facility] [address] [place] [address] Aug, [facility] [place] [facility] [address] [id number] [place] [address] 28 Aug, 2014 [facility] [place] [facility] [address] [id number] [place] [address] 14 Aug, 2014 [facility] [place] [facility] [address] [id number] [place] [address] Aug, [facility] [place] [facility] [address] [id number] [place] [address]- 9177 Jul, [facility] [place] [facility] [address] [id number] [place] [address]19 Jul, [facility] [place] [facility] [address] [id number] [place] [address]- 6633 Jul, [facility] [place] [facility] [address] [id number] [place] [address]- 0236 Jul, [facility] [place] [facility] [address] [id number] [place] [address]- 2719 Jul, [facility] [place] [facility] [address] [id number] [place] [address]- 2626 Jul, [facility] [place] [facility] [address] [facility] [id number] [place], [place] [address] Jun, [facility] [place] [facility] [address] [id number] [place] [address] Jun, [facility] [place] [facility] [address] [id number] [place] [address] Jun, [facility] [place] [facility] [address] [id number] [place] [address] Jun, [facility] [place] [facility] [address] [id number] [place] [address] Jun, [facility] [place] [facility] [address] [id number] [place] [address] May, [facility] [place] [facility] [address] [id number] [place] [address] May, [facility] [address] [id number] [place] [address] May, [facility] [place] [facility] [address] [id number] [place] [address]144 May, [facility] [place] [facility] [address] [id number] [place] [address]68 May, [facility] [place] [facility] [address] [id number] [place] [address] May, [facility] [place] [facility] [address] [id number] [place] [address] May, [facility] [place] [facility] [address] [id number] [place] [address] May, [facility] [place] [facility] [address] [id number] [place] [address] Apr, [facility] [address] [id number] [place] [address] Apr, [facility] [place] [facility] [address] [id number] [place] [address] Apr, [facility] [place] [facility] [address] [id number] [place] [address] Apr, [facility] [place] [facility] [address] [id number] [place] [address] Mar, [facility] [place] [facility] [address] [id number] [place] [address] Mar, [facility] [place] [facility] [address] [id number] [place] [address] 3938 Mar, [facility] [place] [facility] [address] [id number] [place] [address]16 Mar, [facility] [place] [facility] [address] [id number] [place] [address] Feb, [facility] [place] [facility] [address] [id number] [place] [address] 8210 Feb, [facility] [place] [facility] [address] [id number] [place] [address]- [address]394 Feb, [facility] [place] [facility] [address] [id number] [place] [address]- [address]644 Feb, [facility] [place] [facility] [address] [id number] [place] [address] 6764 Feb, [facility] [place] [facility] [address] [id number] [place] [address] 9[address] Feb, [facility] [place] [facility] [address] [id number] [place] [address] 25[address] Jan, [facility] [place] [facility] [address] [id number] [place] [address] 1808 Jan, [facility] [place] [facility] [address] [id number] [place] [address]842 Jan, [facility] [place] [facility] [address] [id number] [place] [address] 8139 Jan, [facility] [place] [facility] [address] [id number] [place] [address] 4648 Dec, [facility] [place] [facility] [address] [id number] [place] [address]- [address]347 Dec, [facility] [place] [facility] [address] [id number], [place] [address] Dec, [facility] [place] [facility] [address] [id number] [place] [address] 9026 Dec, [facility] [place] [facility] [address] [id number] [place] [address]991 Dec, [facility] [place] [facility] [address] [id number] [place] [address] 6839 Dec, [facility] [place] [facility] [address] [id number] [place] [address] 49[address] Oct, [facility] [place] [facility] [address] [id number] [place] [address] 135[address] Oct, [facility] [place] [facility] [address] [id number] [place] [address] 4676 September, [facility] [place] [facility] [address] [id number] [place] [address]234 September, [facility] [place] [facility] [address] [id number] [place] [address] 8359 September, [facility] [place] [facility] [address] [id number] [place] [address] 5144 September, [facility] [place] [facility] [address] [id number] [place] [address] 5464 September, [facility] [place] [facility] [address] [id number] [place] [address]- 9192 September, [facility] [place] [facility] [address] [id number] [place] [address] 8539 Aug, [facility] [place] [facility] [address] [id number] [place] [address] 57[address] Aug, [facility] [place] [facility] [address] [id number] [place] [address]- 0709 Aug, [facility] [place] [facility] [address] [id number] [place] [address]- 5597 Aug, [facility] [place] [facility] [address] [id number] [place] [address] 5716 Jul, [facility] [place] [facility] [address] [id number] [place] [address]- 7651 Jul, [facility] [place] [facility] [address] [id number] [place] [address]- 7022 Jun, [facility] [place] [facility] [address] [id number] [place] [address]- 4326 Jun, [facility] [place] [facility] [address] [id number] [place] [address]- 6113 May, [facility] [address] [id number] [place] [address] 4899 May, [facility] [address] [id number] [place] [address] Jan, [facility] [address] [id number] [place] [address]- 3411 Dec, [facility] [address] [id number] [place] [address]- 4994 Jun, [facility] [address] [id number] [place] [address]- 5195 May, [facility] [address] [id number] [place] [address] 4046 Nov, [facility] [address] [id number] [place] [address]- 9394 September, [facility] [address] [id number] [place] [address]- 9870 Aug, [facility] [address] [id number] [place] [address]- 2856 Aug, [facility] [address] [id number] [place] [address]- 4264 Aug, [facility] [address] [id number] [place] [address]- 7225 Aug, [facility] [address] [id number] [place] [address]- 6879 Nov, [facility] [place] [facility] [address] [id number] [place] [address]- 1205 Oct, [facility] [place] [facility] [address] [id number] [place] [address]- 0197 Jul, [facility] [address] [id number] [place] [address] Feb, [facility] [address] [facility] [id number] [address] Feb, [facility] [address] [facility] [id number] [address] Apr, [facility] [address] [id number], [place] [address] Apr, [facility] [address] [id number] [address]39 Feb, [facility] [address] [id number] [address] Feb, [facility] [address] [id number], [place] [address] Jul, IMMUNIZATIONS No Known Immunizations SOCIAL HISTORY Never Assessed REASON FOR VISIT [facility] F/U Appt PLAN OF CARE VITAL SIGNS MEDICATIONS Unknown [...]
--- OUTSIDE RECORDS SUMMARY | 2018-09-15 22:44 | XMS REPORT ---
Author Author YVES BLEVINS [facility] Address [address] [place] [address] Care Team Providers Care Plastic Card Grader Cardroom Name Role Phone YVES BLEVINS Unavailable PROBLEMS Type Condition ICD9-CM Code WRE79-KS Code Onset Dates Condition Status SNOMED Code Problem HTN (hypertension) I10 Active 73392031 Problem Restless legs syndrome G25.81 Active 822732895 Problem GERD (gastroesophageal reflux disease) K21.9 Active 780600011 Problem Chronic hepatitis C without hepatic coma B18.2 Active 490069978 Problem ED (erectile dysfunction) N52.9 Active 507176595 Problem PAD (peripheral artery disease) I73.9 Active 738623075 Problem Ulcer of right foot, unspecified ulcer stage L97.519 Active 32548298 Problem 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 582667455 Problem COPD (chronic obstructive pulmonary disease) J44.9 Active 78390768 Problem DM neuro manif type II E11.49 Active 92098023 Problem Sinusitis, unspecified chronicity, unspecified location J32.9 Active 50896639 ALLERGIES No Information ENCOUNTERS Encounter Location Date Diagnosis [place] [id number] [place] [address] 53238- 2398 Dec, Back pain M54.9 [facility], [place] [id number] [place] [address] 38134- 9573 Dec, 2018 Foot infection L08.9 and Type 2 diabetes mellitus with other diabetic neurological complication E11.49 [facility], [place] [id number] [place] [address] 88860- 2819 Nov, Cellulitis of toe of right foot L03.031 ; Polyneuropathy in diseases classified elsewhere G63 and HTN (hypertension) I10 [place] [address] [place] [id number] [place] [address] 41897- 2405 Nov, [facility], [place] [address] [id number] [place] [address] 6286 Nov, [facility] [address] [facility] [id number] [place] [address], [place] [address]- 7634 Nov, Back pain M54.9 [facility], [place] [address] [facility] [id number] [place] [address] 4918 Nov, Shortness of breath R06.02 [facility] [address] [id number] [place] [address] 7452 Nov, [facility] [address] [id number] [place] [address], [place] [address]- 4256 Oct, [facility] [address] [facility] [id number] [place] [address]- 6004 Oct, [facility], [place] [address] [place] [id number] [place] [address], [place] [address]- 3243 Oct, [facility] [address] [facility] [id number] [place] [address]- 4494 Oct, [facility] [address] [place] [id number] [place] [address] 2237 Oct, [facility] [address] [place] [id number] [place] [address] 7536 Oct, Back pain M54.9 [facility], [place] [address] [place] [id number] [place] [address]- 6715 Oct, Back pain M54.9 [facility] [address] [facility] [id number] [place] [address]- 7995 Oct, [facility] [address] [facility] [id number] [place] [address]- 6290 September, [facility] [address] [facility] [id number] [place] [address]- 6215 September, [facility] [address] [place] [id number] [place] [address]- 7084 September, [facility], [place] [address] [address] September, Type 2 diabetes mellitus with other diabetic neurological complication E11.49 and Hypotension, unspecified hypotension type I95.9 [facility], [place] [address] [address] 5085 September, [facility], [place] [address] [id number] [place] [address] 33946- 7625 September, [facility], [place] [address] [id number] [place] [address] 96810- 6258 September, Back pain M54.9 [facility], [place] [address] [id number] [place] [address] 55648- 9691 Aug, [facility], [place] [address] [place] [id number] [place] [address] 54789- 7295 Aug, Acute cystitis with hematuria N30.01 ; Ulcer of right foot, unspecified ulcer stage L97.519 ; HTN (hypertension) I10 ; COPD (chronic obstructive pulmonary disease) J44.9 and DM neuro manif type II E11.49 [facility], [place] [address] [place] [id number] [place] [address] 13154- 1168 Aug, Back pain M54.9 [facility], [place] [address] [place] [id number] [place] [address] 88567- 7791 Jul, [facility], [place] [address] [id number] [place] [address] 54595- 2074 Jul, Back pain M54.9 [facility], [place] [id number] [place] [address] 89706- 2648 Jul, [facility], [place] [address] [place] [id number] [place] [address] 20494- 4775 Jul, DM neuro manif type II E11.49 and Ulcer of right foot, unspecified ulcer stage L97.519 [facility], [place] [address] [place] [id number] [place] [address] 44957- 7801 Jun, [facility], [place] [address] [place] [id number] [place] [address] 57065- 1842 Jun, [facility], [place] [address] [place] [id number] [place] [address] 73800- 2908 May, Type 2 diabetes mellitus with other diabetic neurological complication E11.49 ; GERD (gastroesophageal reflux disease) K21.9 and PAD ( peripheral artery disease) I73.9 [facility], [place] [address] 82858- 3511 May, Decubital ulcer L89.90 ; Diabetes E11.9 and GERD ( gastroesophageal reflux disease) K21.9 [facility], [place] [address] 98016- 3632 May, [facility], [place] [address] [place] [id number] [place] [address] 13555- 6019 Apr, [facility], [place] [address] [place] [address] [id number] [place] [address] 44495- 2431 Mar, [facility], [place] [address] [place] [address] [id number] [place] [address] 65752- 9358 Mar, [facility], [place] [address] [place] [id number] [place] [address] 57683- 3854 Feb, [facility], [place] [address] [place] [id number] [place] [address] 63361- 4409 Feb, [facility], [place] [address] [place] [id number] [place] [address] 76280- 6212 Jan, [facility], [place] [address] [place] [id number] [place] [address] 49666- 7392 Jan, HTN (hypertension) I10 [facility], [place] [address] [place] [id number] [place] [address] 85194- 2010 Jan, [facility], [place] [address] [place] [id number] [place] [address] 52074- 0264 Dec, Back pain M54.9 [facility], [place] [address] [address]- 2555 Dec, Back pain M54.9 [facility] [address] [place] [id number] [place] [address] 65176 -7309 Dec, Encounter for immunization Z23 and Puncture wound of right foot, initial encounter S91.331A [facility], [place] [address] [place] [id number] [place] [address] 46298- 5193 Dec, [facility], [place] [address] [place] [id number] [place] [address] 59628- 2043 Nov, [facility], [place] [address] [place] [id number] [place] [address] 19394- 7711 Nov, COPD (chronic obstructive pulmonary disease) J44.9 [facility], [place] [address] [place] [id number] [place] [address] 37056- 0035 Nov, [facility], [place] [address] [place] [id number] [place] [address] 85929- 6416 Oct, [facility], [place] [address] [place] [id number] [place] [address] 89891- 0598 Oct, [facility] [place] [address] [place] [id number] [place] [address] 93747- 8168 September, Onychomycosis B35.1 and DM neuro manif type II E11.49 [facility], [place] [id number] [place] [address] 95101- 7004 September, [facility], [place] [address] [id number] [place] [address] 58357- 1142 Aug, [facility], [place] [address] [id number] [place] [address] 02852- 2153 Jul, Sinusitis, unspecified chronicity, unspecified location J32.9 and Cough R05 [facility], [place] [address] [address]- 6428 Jul, Back pain M54.9 [facility], [place] [address] [id number] [place] [address] 14606- 2234 14 Jun, 2016 Back pain M54.9 [facility], [place] [address] [place] [id number] [place] [address] 60715- 5130 06 Jun, 2016 COPD (chronic obstructive pulmonary disease) J44.9 [facility], [place] [address] [id number] [place] [address] 62226- 8886 May, [facility], [place] [address] 47566- 2677 May, [facility], [place] [address] [place] [id number] [place] [address] 88244- 0033 May, Back pain M54.9 [facility], [place] [address] [place] [id number] [place] [address] 20743- 2310 May, [place] [address] [place] [id number] [place] [address] 79360- 9359 May, [facility], [place] [id number] [place] [address] 85125- 5898 May, Diabetes E11.9 [place] [address] [place] [id number] [place] [address] 16182- 5578 May, Diabetes E11.9 ; GERD (gastroesophageal reflux [...] Need for hepatitis C screening test Z11.59 [facility], [place] [address] [place] [id number] [place] [address] 61444- 2205 May, HTN (hypertension) I10 [facility], [place] [address] [place] [id number] [place] [address] 76169- 4584 Apr, [facility], [place] [address] 51555- 9446 Apr, [facility], [place] [id number] [place] [address] 50744- 9442 Apr, [facility], [place] [id number] [place] [address] 36968- 7193 Apr, [facility], [place] [address] [id number] [place] [address] 53694- 8721 Apr, [facility] [place] [id number] [place] [address] 02844- 4152 Mar, [facility], [place] [address] [id number] [place] [address] 82828- 3671 Mar, [facility], [place] [id number] [place] [address] 04678- 0062 Mar, [facility] [place] [address] [id number] [place] [address] 06643- 9568 Mar, [facility], [place] [id number] [place] [address] 27533- 0383 Mar, Dental examination Z01.20 [facility], [place] [address] [id number] [place] [address] 51705- 8477 Feb, [facility], [place] [address] [id number] [place] [address] 92058- 3084 Feb, [facility], [place] [address] [id number] [place] [address] 99090- 1908 Feb, Back pain M54.9 [facility], [place] [id number] [place] [address] 56807- 5313 Jan, [facility], [place] [address] [id number] [place] [address] 76688- 0957 Jan, [facility], [place] [address] [address]- 0568 Dec, Diabetes E11.9 ; GERD (gastroesophageal reflux disease) K21.9 ; ED (erectile dysfunction) N52.9 ; HTN (hypertension) I10 ; Insomnia G47.00 ; COPD (chronic obstructive pulmonary disease) J44.9 ; Neuropathy G62.9 and Bipolar depression F31.30 [facility], [place] [address] [id number] [place] [address] 61162- 1042 Dec, Type 2 diabetes mellitus with other diabetic neurological complication E11.49 and Onychomycosis B35.1 [facility], [place] [id number] [place] [address] 61398- 4761 Dec, [facility], [place] [address] [id number] [place] [address] 23099- 1003 Dec, [facility], [place] [id number] [place] [address] 07249- 9504 Dec, [facility], [place] [id number] [place] [address] 98196- 9235 Dec, [facility], [place] [address] [id number] [place] [address] 50593- 0486 Nov, [facility], [place] [id number] [place] [address] 21635- 3893 Nov, [facility], [place] [id number] [place] [address] 74087- 8236 Oct, [facility], [place] [address] [id number] [place] [address] 01859- 4212 Oct, [facility], [place] [id number] [place] [address] 85894- 5350 Oct, Back pain M54.9 [facility], [place] [id number] [place] [address] 19326- 2999 Oct, [facility], [place] [id number] [place] [address] 66390- 3114 Oct, [facility] [place] [id number] [place] [address] 96196- 0754 Oct, [facility] [place] [id number] [place] [address] 48622- 1944 Oct, HTN (hypertension) I10 [facility], [place] [address] [place] [address] 93059- 7697 Oct, Back pain M54.9 [facility] [place] [id number] [place] [address] 94576- 4859 Oct, Chronic pain syndrome G89.4 [facility], [place] [id number] [place] [address] 73052- 6802 September, Back pain M54.9 [facility], [place] [id number] [place] [address] 70968- 1884 September, HTN (hypertension) I10 [place] [address] [place] [id number] [place] [address] 12716- 8576 Aug, Porokeratosis Q82.8 ; Onychomycosis B35.1 and Type 2 diabetes mellitus with other diabetic neurological complication E11.49 [place] [address] [place] [id number] [place] [address] 88922- 7824 Aug, GERD (gastroesophageal reflux disease) K21.9 ; Diabetes E11.9 ; HTN (hypertension) I10 ; Insomnia G47.00 ; Restless legs syndrome G25.81 ; COPD (chronic obstructive pulmonary disease) J44.9 ; Back pain M54.9 and Bipolar 1 disorder F31.9 [facility], [place] [address], [place] [address]- 0776 Aug, [facility], [place] [id number] [place] [address] 13089- 6758 Aug, [facility], [place] [address] [id number] [place] [address] 23347- 5697 Aug, [facility], [place] [id number] [place] [address] 24272- 2273 Aug, [facility], [place] [address] [id number] [place] [address] 05178- 7075 Jul, [facility] [place] [address] [place] [address]- 5773 31 Jul, 2015 [facility] [place] [id number] [place] [address] 98075- 4974 30 Jul, 2015 [facility] [place] [id number] [place] [address] 83315- 6840 16 Jul, 2015 [facility] [place] [id number] [place] [address] 78393- 3264 15 Jul, 2015 [facility] [place] [id number] [place] [address] 58898- 9035 Jul, [facility], [place] [id number] [place] [address] 29833- 1741 Jun, Decubital ulcer L89.90 ; Diabetes E11.9 ; Back pain M54.9 ; HTN (hypertension) I10 and COPD (chronic obstructive pulmonary disease) J44.9 [facility], [place] [id number] [place] [address] 17815- 4887 Jun, [facility], [place] [id number] [place] [address] 76270- 9257 Jun, [facility] [place] [id number] [place] [address] 80838- 0631 Jun, [facility] [place] [id number] [place] [address] 67001- 7980 Jun, [facility], [place] [id number] [place] [address] 77013- 7708 Jun, Diabetes E11.9 ; Insomnia G47.00 ; Decubital ulcer L89.90 ; GERD (gastroesophageal reflux disease) K21.9 ; Back pain M54.9 ; Superficial fungus infection of skin B36.9 and HTN (hypertension) I10 [address] [id number] [id number] 02 Jun, 2015 Dental examination Z01.20 [facility] [place] [id number] [place] [address] 63530- 7501 May, [facility], [place] [address] [address]- 2452 May, [facility] [place] [id number] [place] [address] 00854- 2811 May, [facility] [place] [id number] [place] [address] 09311- 4238 May, Diabetes E11.9 ; HTN (hypertension) I10 and Decubital ulcer L89.90 [facility], [place] [address] [place] [address] 60937- 9816 May, HTN (hypertension) I10 ; Decubital ulcer L89.90 and Diabetes E11.9 [facility] [place] [id number] [place] [address] 23198- 5945 30 Apr, 2015 Diabetes E11.9 ; GERD (gastroesophageal reflux disease) K21.9 ; Back pain M54.9 ; HTN (hypertension) I10 ; Restless legs syndrome G25.81 and Decubital ulcer L89.90 [place] [address] [address]- 7796 Apr, [place] [id number] [place] [address] 79260- 8742 Apr, Diabetes E11.9 ; HTN (hypertension) I10 ; Restless legs syndrome G25.81 ; GERD (gastroesophageal reflux disease) K21.9 and COPD ( chronic obstructive pulmonary disease) J44.9 [facility], [place] [address] [address]- 5923 Mar, [facility], [place] [address] [address]- 2451 Mar, [facility] [place] [id number] [place] [address] 70002- 7222 Mar, Diabetes E11.9 ; Abscess L02.91 and Restless legs syndrome G25.81 [facility] [place] [id number] [place] [address] 57337- 6330 Mar, [facility] [place] [id number] [place] [address] 73903- 8144 Feb, GERD (gastroesophageal reflux disease) K21.9 ; Back pain M54.9 ; ED (erectile dysfunction) N52.9 ; Diabetes E11.9 ; HTN (hypertension) I10 and Insomnia G47.00 [place] [address] [address] Feb, [place] [address] [address]- [address] Feb, [place] [address] [address] Jan, [place] [address] [address]- [address] Jan, Diabetes 250.00 ; Nondependent cannabis abuse, continuous 305.21 ; Cough 786.2 ; Schizoaffective disorder, unspecified 295.70 ; Sciatica 724.3 ; Other, mixed, or unspecified nondependent drug abuse, unspecified 305.90 ; Chronic pain 338.29 ; GERD (gastroesophageal reflux disease) 530.81 and HTN (hypertension) 401.9 [place] [id number] [place] [address] 78994- 5685 Jan, [place] [id number] [place] [address] 60547- 8351 Jan, [place] [address] [address]- [address] Jan, Chronic pain associated with significant psychosocial dysfunction 338.4 ; Diabetes mellitus without mention of complication, type I [ juvenile type], uncontrolled 250.03 ; Benign essential hypertension 401.1 ; Schizoaffective disorder, unspecified 295.70 ; Wheezing 786.07 ; Ear ache 388.70 ; Cough 786.2 ; Sciatica 724.3 and Foot pain, bilateral 729.5 [place] [address] [address]- [address] Dec, [facility], [place] [id number] [address] Dec, [facility], [place] [id number] [address] Dec, [facility], [place] [id number] [address] Dec, [facility], [place] [id number] [place] [address] 62729- 4491 Dec, [facility], [place] [id number] [place] [address] 34983- 0860 Nov, Elevated liver enzymes 790.5 [facility], [place] [id number] [address] Nov, [facility], [place] [id number] [place] [address]31- 7670 Nov, [facility], [place] [id number] [address] Nov, [facility], [place] [id number] [place] [address] 38283- 5773 Nov, Benign essential hypertension 401.1 ; Diabetes mellitus without mention of complication, type I [juvenile type], uncontrolled 250.03 and Nondependent cannabis abuse, continuous 305.21 [facility], [place] [id number] [address] Oct, Cellulitis 682.9 and Benign essential hypertension 401.1 [facility], [place] [id number] [address] Oct, [facility], [place] [id number] [address] September, [facility], [place] [id number] [address] September, [facility], [place] [id number] [address] Aug, [facility] [place] [facility] [address] [id number] [place] [address] 28 Aug, 2014 [facility] [place] [facility] [address] [id number] [place] [address] 14 Aug, 2014 [facility] [place] [facility] [address] [address] [id number] [place] [address] Aug, [facility] [place] [facility] [address] [id number] [place] [address] Jul, [facility] [place] [facility] [address] [id number] [place] [address] Jul, [facility] [place] [facility] [address] [id number] [place] [address] Jul, [facility] [place] [facility] [address] [id number] [place] [address] Jul, [facility] [place] [facility] [address] [id number] [place] [address] Jul, [facility] [place] [facility] [address] [id number] [place] [address] Jul, [facility] [place] [facility] [address] [facility] [id number] [place] [address] Jun, [facility] [place] [facility] [address] [id number] [place] [address] Jun, [facility] [place] [facility] [address] [id number] [place] [address] Jun, [facility] [place] [facility] [address] [id number] [place] [address] Jun, [facility] [place] [facility] [address] [id number] [place] [address] Jun, [facility] [place] [facility] [address] [id number] [place] [address] May, [facility] [place] [facility] [address] [id number] [place] [address] May, [facility] [address] [id number] [place] [address] May, [facility] [place] [facility] [address] [id number] [place] [address] May, [facility] [place] [facility] [address] [id number] [place] [address]184 May, [facility] [place] [facility] [address] [id number] [place] [address] May, [facility] [place] [facility] [address] [id number] [place] [address] 12[address] May, [facility] [place] [facility] [address] [id number] [place] [address] May, [facility] [place] [facility] [address] [id number] [place] [address] Apr, [facility] [address] [id number] [place] [address] Apr, [facility] [place] [facility] [address] [id number] [place] [address] Apr, [facility] [place] [facility] [address] [id number] [place] [address] Apr, [facility] [place] [facility] [address] [id number] [place] [address] Mar, [facility] [place] [facility] [address] [id number] [place] [address] Mar, [facility] [place] [facility] [address] [id number] [place] [address] Mar, [facility] [place] [facility] [address] [id number] [place] [address] 2096 Mar, [facility] [place] [facility] [address] [id number] [place] [address] Feb, [facility] [place] [facility] [address] [id number] [place] [address] 269[address] Feb, [facility] [place] [facility] [address] [id number] [place] [address] Feb, [facility] [place] [facility] [address] [id number] [place] [address] 75[address] Feb, [facility] [place] [facility] [address] [id number] [place] [address] Feb, [facility] [place] [facility] [address] [id number] [place] [address] 134[address] Feb, [facility] [place] [facility] [address] [id number] [place] [address]68 Jan, [facility] [place] [facility] [address] [id number] [place] [address] 86[address] Jan, [facility] [place] [facility] [address] [id number] [place] [address] 98[address] Jan, [facility] [place] [facility] [address] [id number] [place] [address] Jan, [facility] [place] [facility] [address] [id number] [place] [address] Dec, [facility] [place] [facility] [address] [id number] [place] [address] 44[address] Dec, [facility] [place] [facility] [address] [id number] [address] Dec, [facility] [place] [facility] [address] [id number] [place] [address]709 Dec, [facility] [place] [facility] [address] [id number] [place] [address]- 8905 Dec, [facility] [place] [facility] [address] [id number] [place] [address] 7966 Dec, [facility] [place] [facility] [address] [id number] [place] [address]28 Oct, [facility] [place] [facility] [address] [id number] [place] [address] 1669 Oct, [facility] [place] [facility] [address] [id number] [place] [address] 3039 September, [facility] [place] [facility] [address] [id number] [place] [address]- 4495 September, [facility] [place] [facility] [address] [id number] [place] [address]- 68[address] September, [facility] [place] [facility] [address] [id number] [place] [address]- 6157 September, [facility] [place] [facility] [address] [id number] [place] [address]- 8316 September, [facility] [place] [facility] [address] [id number] [place] [address] 4[address] September, [facility] [place] [facility] [address] [id number] [place] [address]- 6829 Aug, [facility] [place] [facility] [address] [id number] [place] [address]349 Aug, [facility] [place] [facility] [address] [id number] [place] [address]191 Aug, [facility] [place] [facility] [address] [id number] [place] [address] 8014 Aug, [facility] [place] [facility] [address] [id number] [place] [address] 7000 Jul, [facility] [place] [facility] [address] [id number] [place] [address] 2016 Jul, [facility] [place] [facility] [address] [id number] [place] [address] 1644 Jun, [facility] [place] [facility] [address] [id number] [place] [address]- 6025 Jun, [facility] [place] [facility] [address] [id number] [place] [address]- 1645 May, [facility] [address] [id number] [place] [address]- 5975 May, [facility] [address] [id number] [place] [address] 8250 Jan, [facility] [address] [id number] [place] [address]- 7870 Dec, [facility] [address] [id number] [place] [address]- 2406 Jun, [facility] [address] [id number] [place] [address]- 0985 May, [facility] [address] [id number] [place] [address]- 9090 Nov, [facility] [address] [id number] [place] [address]- 5936 September, [facility] [address] [id number] [place] [address]- [address]110 Aug, [facility] [address] [id number] [place] [address]- 9218 Aug, [facility] [address] [id number] [place] [address]- 9321 Aug, [facility] [address] [id number] [place] [address]- 3934 Aug, [facility] [address] [id number] [place] [address]- 6507 Nov, [facility] [place] [facility] [address] [id number] [place] [address]- 1137 Oct, [facility] [place] [facility] [address] [id number] [place] [address]- 4[address] Jul, [facility] [address] [id number] [place] [address] 277[address] Feb, [facility] [place] [address] [facility] [id number] [address] Feb, [facility] [place] [address] [id number] [address] Apr, [facility] [place] [address] [id number], [place] [address]44 Apr, [facility] [place] [address] [id number] [address] Feb, [facility] [place] [address] [id number] [address] Feb, [facility] [place] [address] [facility] [id number], [place] [address] Jul, IMMUNIZATIONS No Known Immunizations SOCIAL HISTORY [...]
--- OUTSIDE RECORDS SUMMARY | 2018-09-15 22:45 | XMS REPORT ---
Author Author YVES BLEVINS [facility] Address [address] [place] [address] Care Team Providers Care Launch Operator Name Role Phone YVES BLEVINS Unavailable PROBLEMS Type Condition ICD9-CM Code DPS67-GK Code Onset Dates Condition Status SNOMED Code Problem HTN (hypertension) I10 Active 51319534 Problem Restless legs syndrome G25.81 Active 756085281 Problem GERD (gastroesophageal reflux disease) K21.9 Active 340093307 Problem Chronic hepatitis C without hepatic coma B18.2 Active 397431858 Problem ED (erectile dysfunction) N52.9 Active 483771922 Problem PAD (peripheral artery disease) I73.9 Active 988349517 Problem Ulcer of right foot, unspecified ulcer stage L97.519 Active 11500575 Problem 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 824824223 Problem COPD (chronic obstructive pulmonary disease) J44.9 Active 25257239 Problem DM neuro manif type II E11.49 Active 18955445 Problem Sinusitis, unspecified chronicity, unspecified location J32.9 Active 23583775 ALLERGIES Substance Reaction Event Type Date Status Latex Unknown Drug Allergy Aug, Active Thorazine Unknown Drug Allergy Aug, Active Haldol Unknown Drug Allergy Aug, Active ENCOUNTERS Encounter Location Date Diagnosis [facility] [id number] [place] [address] 11170- 1290 Dec, Back pain M54.9 [facility] [id number] [place] [address] 13195- 3542 Dec, Foot infection L08.9 and Type 2 diabetes mellitus with other diabetic neurological complication E11.49 [facility] [id number] [address] 8[address] Nov, Cellulitis of toe of right foot L03.031 ; Polyneuropathy in diseases classified elsewhere G63 and HTN (hypertension) I10 [facility] [address] [facility] [id number] [place] [address] 0655 Nov, [facility] [address] [facility] [id number] [place] [address]- 5330 Nov, [facility] [address] [facility] [id number] [place] [address]- 9156 Nov, Back pain M54.9 [facility] [address] [facility] [id number] [place] [address], [place] [address]- 3007 Nov, Shortness of breath R06.02 [facility] [address] [facility] [id number] [place] [address], [place] [address]- 8161 Nov, [facility] [address] [facility] [id number] [place] [address]- 4982 Oct, [facility] [id number] [place] [address], [place] [address]- 0441 Oct, [facility] [address] [facility] [id number] [place] [address]- 9035 Oct, [facility] [id number] [place] [address] 4235 Oct, [facility] [id number] [address] 4770 Oct, [facility] [address] [address] 3022 Oct, Back pain M54.9 [facility] [address] [facility] [id number] [address] 3241 Oct, Back pain M54.9 [facility] [address] [facility] [id number] [place] [address]- 8868 Oct, [facility] [address] [facility] [id number], [place] [address] 7036 September, [facility] [id number] [address]- 0724 September, [facility] [address] [place] [address] 97740- 4865 September, [facility] [id number] [place] [address] 63803- 1771 September, Type 2 diabetes mellitus with other diabetic neurological complication E11.49 and Hypotension, unspecified hypotension type I95.9 [facility] [id number] [place] [address] 97092- 5314 September, [facility] [id number] [place] [address] 02049- 2708 September, [facility] [id number] [place] [address] 02677- 9773 September, Back pain M54.9 [facility] [id number] [place] [address] 19260- 2681 Aug, [facility] [id number] [place] [address] 79465- 4382 Aug, Acute cystitis with hematuria N30.01 ; Ulcer of right foot, unspecified ulcer stage L97.519 ; HTN (hypertension) I10 ; COPD (chronic obstructive pulmonary disease) J44.9 and DM neuro manif type II E11.49 [facility] [id number] [place] [address] 75467- 7709 Aug, Back pain M54.9 [facility] [id number] [place] [address] 92931- 7398 Jul, [facility] [id number] [place] [address] 36923- 0615 Jul, Back pain M54.9 [facility] [id number] [place] [address] 72117- 4753 Jul, [facility] [id number] [place] [address] 32728- 3182 Jul, DM neuro manif type II E11.49 and Ulcer of right foot, unspecified ulcer stage L97.519 [facility] [address] [address]- 7703 Jun, [facility] [id number] [place] [address] 50664- 2586 15 Jun, 2017 [facility] [id number] [place] [address] 53965- 7698 May, Type 2 diabetes mellitus with other diabetic neurological complication E11.49 ; GERD (gastroesophageal reflux disease) K21.9 and PAD ( peripheral artery disease) I73.9 [facility] [id number] [place] [address] 54933- 1991 17 May, 2017 Decubital ulcer L89.90 ; Diabetes E11.9 and GERD ( gastroesophageal reflux disease) K21.9 [facility] [id number] [place] [address] 73635- 7737 May, [facility] [id number] [place] [address] 70798- 3175 Apr, [facility] [id number] [place] [address] 84038- 4260 Mar, [facility] [id number] [place] [address] 94387- 4562 Mar, [facility] [address] [address]- 0026 Feb, [facility] [id number] [place] [address] 26828- 3442 Feb, [facility] [address] [place] [address] 22667- 0913 29 Jan, 2017 [facility] [id number] [place] [address] 89930- 5988 29 Jan, 2017 HTN (hypertension) I10 [facility] [address] [address]- 3990 25 Jan, 2017 [facility] [address] [place] [address]- 7523 Dec, Back pain M54.9 [facility] [id number] [place] [address] 27318- 8507 Dec, Back pain M54.9 [facility] [address] [place] [address] 07792 -5218 Dec, Encounter for immunization Z23 and Puncture wound of right foot, initial encounter S91.331A [facility] [id number] [place] [address] 01851- 0151 Dec, [facility] [id number] [place] [address] 59763- 7974 Nov, [facility] [id number] [place] [address] 40478- 2230 Nov, COPD (chronic obstructive pulmonary disease) J44.9 [facility] [id number] [place] [address] 83217- 7479 Nov, [facility] [id number] [place] [address] 58877- 6654 Oct, [facility] [id number] [place] [address] 87272- 1020 Oct, [facility] [id number] [place] [address] 28440- 8617 September, Onychomycosis B35.1 and DM neuro manif type II E11.49 [facility] [id number] [place] [address] 03485- 3940 September, [facility] [id number] [place] [address] 89354- 3222 Aug, [facility] [id number] [place] [address] 28455- 4796 Jul, Sinusitis, unspecified chronicity, unspecified location J32.9 and Cough R05 [facility] [id number] [place] [address] 76587- 7538 13 Jul, 2016 Back pain M54.9 [facility] [address] [place] [address] 59499- 1278 14 Jun, 2016 Back pain M54.9 [facility] [address] [place] [address] 50886- 8916 06 Jun, 2016 COPD (chronic obstructive pulmonary disease) J44.9 [facility] [id number] [place] [address] 90367- 4722 17 May, 2016 [facility] [id number] [place] [address] 31526- 5573 May, [facility] [id number] [place] [address] 37755- 7013 May, Back pain M54.9 [facility] [id number] [place] [address] 72303- 5985 16 May, 2016 [facility] [id number] [place] [address] 20082- 5895 13 May, 2016 [facility] [id number] [place] [address] 88830- 4196 May, Diabetes E11.9 [facility] [address] [place] [address] 10504- 4491 11 May, 2016 Diabetes E11.9 ; GERD [...] test Z11.59 [facility] [address] [place] [address] 13438- 4299 04 May, 2016 HTN (hypertension) I10 [facility] [id number] [place] [address] 58076- 9439 Apr, [facility] [address] [id number] [place] [address]- 0340 Apr, [facility] [address] [id number] [address]- 5936 Apr, [facility] [address] [facility] [id number] [place] [address]- 9223 Apr, [facility] [address] [facility] [id number] [place] [address] 16978- 1777 Apr, [facility] [address] [facility] [id number] [place] [address], [place] [address]- 5098 Mar, [facility] [address] [facility] [id number] [place] [address], [place] [address]- 8955 Mar, [facility] [id number] [place] [address] 76709- 0573 Mar, [facility] [id number] [place] [address]- 2554 Mar, [facility] [address] [place] [address] 79595- 3074 Mar, Dental examination Z01.20 [facility] [id number], [place] [address]- 4121 Feb, [facility] [address] [address]- 4485 Feb, [facility] [address], [place] [address]- 0087 Feb, Back pain M54.9 [facility] [address] [facility] [id number] [place] [address]- 9662 Jan, [facility] [address] [facility] [id number], [place] [address]- 3879 Jan, [facility] [address], [place] [address]- 5735 Dec, Diabetes E11.9 ; GERD (gastroesophageal reflux disease) K21.9 ; ED (erectile dysfunction) N52.9 ; HTN (hypertension) I10 ; Insomnia G47.00 ; COPD (chronic obstructive pulmonary disease) J44.9 ; Neuropathy G62.9 and Bipolar depression F31.30 [facility] [id number] [place] [address] 62078- 5620 Dec, Type 2 diabetes mellitus with other diabetic neurological complication E11.49 and Onychomycosis B35.1 [facility] [id number] [place] [address] 09941- 5515 Dec, [facility] [address] 26138- 8895 Dec, [facility] [id number] [place] [address] 35122- 8890 Dec, [facility] [id number] [place] [address] 93145- 9334 Dec, [facility] [id number] [place] [address] 82298- 8989 Nov, [facility] [id number] [place] [address] 54343- 2725 Nov, [facility] [id number] [place] [address] 73418- 4757 Oct, [facility] [id number] [place] [address] 44538- 9604 Oct, [facility] [id number] [place] [address] 96636- 4755 Oct, Back pain M54.9 [facility] [id number] [place] [address] 40708- 9416 Oct, [facility] [id number] [place] [address] 47997- 5946 Oct, [facility] [id number] [place] [address] 42156- 5161 Oct, [facility] [address] [address]- 7783 Oct, HTN (hypertension) I10 [facility] [id number] [place] [address] 27116- 2908 Oct, Back pain M54.9 [facility] [id number] [place] [address] 23342- 4572 Oct, Chronic pain syndrome G89.4 [facility] [facility] [id number] [place] [address] 38997- 9285 September, Back pain M54.9 [facility] [id number] [place] [address] 03296- 0097 September, HTN (hypertension) I10 [facility] [id number] [place] [address] 16433- 3761 Aug, Porokeratosis Q82.8 ; Onychomycosis B35.1 and Type 2 diabetes mellitus with other diabetic neurological complication E11.49 [facility] [id number] [place] [address] 64546- 8762 Aug, GERD (gastroesophageal reflux disease) K21.9 ; Diabetes E11.9 ; HTN (hypertension) I10 ; Insomnia G47.00 ; Restless legs syndrome G25.81 ; COPD (chronic obstructive pulmonary disease) J44.9 ; Back pain M54.9 and Bipolar 1 disorder F31.9 [facility] [address] [place] [address] 12575- 4260 Aug, [facility] [id number] [place] [address] 55146- 4319 Aug, [facility] [id number] [place] [address] 43424- 3210 Aug, [facility] [address] [address]- 7912 Aug, [facility] [address] [place] [address]- 1933 31 Jul, 2015 [facility] [address] [place] [address] 48210- 1936 31 Jul, 2015 [facility] [address] [place] [address] 80224- 0804 30 Jul, 2015 [facility] [id number] [place] [address] 85453- 8070 16 Jul, 2015 [facility] [address] [place] [address] 32409- 5773 15 Jul, 2015 [facility] [id number] [place] [address] 91249- 4984 Jul, [facility] [address] [place] [address] 03376- 0630 17 Jun, 2015 Decubital ulcer L89.90 ; Diabetes E11.9 ; Back pain M54.9 ; HTN (hypertension) I10 and COPD (chronic obstructive pulmonary disease) J44.9 [facility] [address] [place] [address] 17388- 4533 Jun, [facility] [address] [place] [address] 04315- 2807 Jun, [facility] [address] [address]- 2160 Jun, [facility] [address] [place] [address] 78662- 7854 Jun, [facility] [address] [address]- 2334 Jun, Diabetes E11.9 ; Insomnia G47.00 ; Decubital ulcer L89.90 ; GERD (gastroesophageal reflux disease) K21.9 ; Back pain M54.9 ; Superficial fungus infection of skin B36.9 and HTN (hypertension) I10 [address] [id number] [id number] Jun, Dental examination Z01.20 [facility] [address], [place] [address]- 9182 May, [facility] [id number] [place] [address] 55043- 0703 May, [facility] [id number] [place] [address] 92121- 3166 May, [place] [facility] [id number] [place] [address] 15687- 1706 May, Diabetes E11.9 ; HTN (hypertension) I10 and Decubital ulcer L89.90 [facility] [id number] [place] [address] 21711- 9039 May, HTN (hypertension) I10 ; Decubital ulcer L89.90 and Diabetes E11.9 [facility] [id number] [place] [address] 44419- 1956 Apr, Diabetes E11.9 ; GERD (gastroesophageal reflux disease) K21.9 ; Back pain M54.9 ; HTN (hypertension) I10 ; Restless legs syndrome G25.81 and Decubital ulcer L89.90 [place] [facility] [id number] [place] [address] 28140- 1598 Apr, [facility] [facility] [id number] [place] [address] 05755- 1331 Apr, Diabetes E11.9 ; HTN (hypertension) I10 ; Restless legs syndrome G25.81 ; GERD (gastroesophageal reflux disease) K21.9 and COPD ( chronic obstructive pulmonary disease) J44.9 [facility] [id number] [place] [address] 19050- 8234 Mar, [place] [facility] [id number] [place] [address] 37550- 8476 Mar, [facility] [address] [place] [address] 45185- 6803 Mar, Diabetes E11.9 ; Abscess L02.91 and Restless legs syndrome G25.81 [place] [facility] [id number] [place] [address] 65994- 1458 Mar, [facility] [facility] [id number] [place] [address] 50282- 2756 Feb, GERD (gastroesophageal reflux disease) K21.9 ; Back pain M54.9 ; ED (erectile dysfunction) N52.9 ; Diabetes E11.9 ; HTN (hypertension) I10 and Insomnia G47.00 [place] [facility] [id number] [place] [address] 99126- 3117 Feb, [facility] [facility] [address] 63827- 3177 Feb, [facility] [facility] [address] 67951- 2138 Jan, [facility] [facility] [address] 66594- 4990 Jan, Diabetes 250.00 ; Nondependent cannabis abuse, continuous 305.21 ; Cough 786.2 ; Schizoaffective disorder, unspecified 295.70 ; Sciatica 724.3 ; Other, mixed, or unspecified nondependent drug abuse, unspecified 305.90 ; Chronic pain 338.29 ; GERD (gastroesophageal reflux disease) 530.81 and HTN (hypertension) 401.9 [place] [facility] [id number] [place] [address] 83348- 5422 Jan, [place] [facility] [id number] [place] [address] 14500- 5105 Jan, [place] [facility] [id number] [place] [address] 90743- 8215 Jan, Diabetes mellitus without mention of complication, type I [ juvenile type], uncontrolled 250.03 ; Schizoaffective disorder, unspecified 295.70 ; Benign essential hypertension 401.1 ; Chronic pain associated with significant psychosocial dysfunction 338.4 ; Wheezing 786.07 ; Ear ache 388.70 ; Cough 786.2 ; Sciatica 724.3 and Foot pain, bilateral 729.5 [facility] [id number] [place] [address] 77957- 9666 Dec, [facility] [id number] [place] [address] 70448- 9039 Dec, [facility] [id number] [place] [address] 31604- 5384 Dec, [facility] [address] 58557- 9882 Dec, [facility] [id number] [place] [address] 13593- 1362 Dec, [facility] [id number] [place] [address] 22716- 9531 Nov, Elevated liver enzymes 790.5 [facility] [address] 50433- 9123 Nov, [facility] [id number] [place] [address] 07978- 5096 Nov, [facility] [id number] [place] [address] 53812- 1241 Nov, [facility] [id number] [place] [address] 15825- 4171 Nov, Diabetes mellitus without mention of complication, type I [ juvenile type], uncontrolled 250.03 ; Benign essential hypertension 401.1 and Nondependent cannabis abuse, continuous 305.21 [facility] [id number] [place] [address] 17471- 4181 Oct, Cellulitis 682.9 and Benign essential hypertension 401.1 [facility] [id number] [place] [address] 57774- 8296 Oct, [facility] [id number] [place] [address] 42085- 4209 September, [facility] [id number] [place] [address] 00991- 0896 September, [facility] [place] [facility] [address] [id number] [place] [address]- 5611 Aug, [facility] [place] [facility] [address] [id number] [place] [address]- 4442 Aug, [facility] [place] [facility] [address] [facility] [id number] [place] [address]- 7041 Aug, [facility] [place] [facility] [address] [id number] [place] [address]- 9397 Aug, [facility] [place] [facility] [address] [id number] [place] [address]- 6832 Jul, [facility] [place] [facility] [address] [facility] [id number] [place] [address] Jul, [facility] [place] [facility] [address] [facility] [id number] [place] [address] Jul, [facility] [place] [facility] [address] [id number] [place] [address] Jul, [facility] [place] [facility] [address] [id number] [place] [address] Jul, [facility] [place] [facility] [address] [facility] [id number] [place] [address] Jul, [facility] [place] [facility] [address] [id number] [place] [address] Jun, [facility] [place] [facility] [address] [id number] [place] [address] Jun, [facility] [place] [facility] [address] [id number] [place] [address] Jun, [facility] [place] [facility] [address] [facility] [id number] [place] [address] Jun, [facility] [place] [facility] [address] [facility] [id number] [place] [address] Jun, [facility] [place] [facility] [address] [id number] [place] [address] May, [facility] [place] [facility] [address] [id number] [place] [address] May, [facility] [place] [facility] [address] [id number] [place] [address] May, [facility] [place] [facility] [address] [id number] [place] [address] May, [facility] [place] [facility] [address] [id number] [place] [address] May, [facility] [place] [facility] [address] [id number] [place] [address] May, [facility] [place] [facility] [address] [id number] [place] [address] May, [facility] [place] [facility] [address] [id number] [place] [address] May, [facility] [place] [facility] [address] [id number] [place] [address] Apr, [facility] [place] [facility] [address] [id number] [place] [address] Apr, [facility] [place] [facility] [address] [id number] [place] [address] Apr, [facility] [place] [facility] [address] [id number] [place] [address] Apr, [facility] [place] [facility] [address] [id number] [place] [address] Mar, [facility] [place] [facility] [address] [id number] [place] [address] Mar, [facility] [place] [facility] [address] [id number] [place] [address] Mar, [facility] [place] [facility] [address] [id number] [place] [address] Mar, [facility] [place] [facility] [address] [id number] [place] [address] Feb, [facility] [place] [facility] [address] [id number] [place] [address] Feb, [facility] [place] [facility] [address] [id number] [place] [address] Feb, [facility] [place] [facility] [address] [id number] [place] [address] Feb, [facility] [place] [facility] [address] [id number] [place] [address] Feb, [facility] [place] [facility] [address] [id number] [place] [address] Feb, [facility] [place] [facility] [address] [id number] [place] [address] Jan, [facility] [place] [facility] [address] [id number] [place] [address] Jan, [facility] [place] [facility] [address] [id number] [place] [address] Jan, [facility] [place] [facility] [address] [id number] [place] [address] Jan, [facility] [place] [facility] [address] [id number] [address] Dec, [facility] [place] [facility] [address] [id number], [place] [address] Dec, [facility] [place] [facility] [address] [id number] [place] [address] Dec, [facility] [place] [facility] [address] [id number] [place] [address] Dec, [facility] [place] [facility] [address] [id number] [place] [address] Dec, [facility] [place] [facility] [address] [id number] [place] [address] Dec, [facility] [place] [facility] [address] [id number] [place] [address] Oct, [facility] [place] [facility] [address] [id number] [place] [address] Oct, [facility] [place] [facility] [address] [id number] [place] [address] September, [facility] [place] [facility] [address] [id number] [place] [address] September, [facility] [place] [facility] [address] [id number] [place] [address] September, [facility] [place] [facility] [address] [id number] [place] [address] September, [facility] [place] [facility] [address] [id number] [place] [address] September, [facility] [place] [facility] [address] [id number] [place] [address] September, [facility] [place] [facility] [address] [id number] [place] [address] Aug, [facility] [place] [facility] [address] [id number] [place] [address] Aug, [facility] [place] [facility] [address] [id number] [place] [address] Aug, [facility] [place] [facility] [address] [id number] [place] [address] Aug, [facility] [place] [facility] [address] [id number] [place] [address] Jul, [facility] [place] [facility] [address] [id number] [place] [address] Jul, [facility] [place] [facility] [address] [id number] [place] [address] Jun, [facility] [place] [facility] [address] [id number] [place] [address] Jun, [facility] [place] [facility] [address] [id number] [place] [address] May, [facility] [place] [facility] [address] [id number] [place] [address] May, [facility] [place] [facility] [address] [id number] [place] [address] Jan, [facility] [address] [id number] [place] [address] Dec, [facility] [place] [facility] [address] [id number] [place] [address] Jun, [facility] [place] [facility] [address] [id number] [place] [address] May, [facility] [address] [id number] [place] [address] Nov, [facility] [place] [facility] [address] [id number] [place] [address] September, [facility] [address] [id number] [place] [address] Aug, [facility] [place] [facility] [address] [id number] [place] [address] Aug, [facility] [place] [facility] [address] [id number] [address] Aug, [facility] [place] [facility] [address] [id number] [place] [address] 110[address] Aug, [facility] [place] [facility] [address] [id number] [place] [address] Nov, [facility] [place] [facility] [address] [id number] [place] [address] Oct, [facility] [place] [facility] [address] [id number] [address] Jul, [facility] [address] [id number] [address] Feb, [facility] [id number] [address] Feb, [facility] [id number], [place] [address] Apr, [facility] [id number], [place] [address] Apr, [facility] [id number], [place] [address] Feb, [facility] [id number], [place] [address] Feb, [facility] [address] [id number] [address] Jul, IMMUNIZATIONS No Known Immunizations SOCIAL HISTORY Never Assessed REASON FOR VISIT Hospital f/u -[place] PLAN OF CARE Activity Details Follow Up 2 Months Reason: VITAL SIGNS Height 70 in 2017-09-01 Weight 255 lbs 2017-09-01 Temperature 97.2 degrees Fahrenheit 2017-09-01 Heart Rate 74 bpm 2017-09-01 Respiratory Rate 20 2017-09-01 BMI 36.58 kg/m2 2017-09-01 Blood pressure systolic 108 mmHg 2017-09-01 Blood pressure diastolic 64 mmHg 2017-09-01 MEDICATIONS Medication Instructions Dosage Frequency Start Date End Date Duration Status Lyrica 150 MG Orally Twice a day 1 capsule 12h 28 days Active Cymbalta 60 mg Orally Once a day 1 capsule 24h May, Active Elavil 75 by oral route Once a day 1-2 tablet by Oral route 1 time per day 24h Dec, Active Ventolin HFA 108 (90 Base) MCG/ACT INHALE TWO PUFFS BY MOUTH EVERY 4 HOURS NEEDED 17 Active Omeprazole 40 mg Orally Once a day 1 capsule 24h 10 Jun, 2015 Active Metoprolol Succinate ER 50 MG TAKE ONE TABLET BY MOUTH ONCE DAILY 90 Active Ranitidine HCl 150 MG TAKE ONE TABLET BY MOUTH TWICE DAILY 90 Active Pioglitazone HCl 45 MG TAKE ONE TABLET BY MOUTH ONCE DAILY (NEEDS APPOINTMENT FOR FURTHER REFILLS) 90 Active Depakote 500 MG Orally 3 times a day 1 tablet 8h May, Active Robitussin 12 Hour Cough 30 mg/5ml Orally every 12 hrs 10 ml as needed 12h Jul, Active Vistaril 50 mg take 1 capsule (50 mg) by oral route 4 times per day Dec, Active Amlodipine Besylate 10 MG TAKE ONE TABLET BY MOUTH ONCE DAILY 90 Active Ropinirole HCl 3 MG TAKE ONE TABLET BY MOUTH ONCE DAILY 1 TO 3 HOURS BEFORE AT BEDTIME 90 Active benztropine 1 mg take 1 tablet (1 mg) by oral route 3 times per day Dec, Active Hydrocodone-Ibuprofen 7.5-200 MG Orally 3 times a day 1 tablet as needed 8h Aug, 28 days Active Metformin HCl 1000 MG TAKE ONE TABLET BY MOUTH TWICE DAILY WITH MEALS 90 Active Lisinopril-Hydrochlorothiazide 20-25 MG TAKE ONE TABLET BY MOUTH ONCE DAILY 90 Active Invega 6 MG Orally Once a day 1 tablet in the morning 24h Active RESULTS No Results PROCEDURES Procedure Date Ordered Result Body Site [facility] VISIT ESTABLISHED PATIENT September 01, 2017 INSTRUCTIONS MEDICATIONS ADMINISTERED No Known [...]
--- OUTSIDE RECORDS SUMMARY | 2018-09-15 22:45 | XMS REPORT ---
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 Name Role Phone YVES BLEVINS Unavailable PROBLEMS Type Condition ICD9-CM Code UMX85-UQ Code Onset Dates Condition Status SNOMED Code Problem HTN (hypertension) I10 Active 78345380 Problem Restless legs syndrome G25.81 Active 151028833 Problem GERD (gastroesophageal reflux disease) K21.9 Active 605256428 Problem ED (erectile dysfunction) N52.9 Active 230724743 Problem PAD (peripheral artery disease) I73.9 Active 010455845 Problem Ulcer of right foot, unspecified ulcer stage L97.519 Active 00838604 Problem 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 883953069 Problem COPD (chronic obstructive pulmonary disease) J44.9 Active 49634305 Problem DM neuro manif type II E11.49 Active 86199704 Problem Sinusitis, unspecified chronicity, unspecified location J32.9 Active 95131719 ALLERGIES No Information ENCOUNTERS Encounter Location Date Diagnosis [facility], [place] [id number] [place] [address] 88713- 8252 Dec, [facility], [place] [id number] [place] [address] 26061- 1972 Nov, Cellulitis of toe of right foot L03.031 ; Polyneuropathy in diseases classified elsewhere G63 and HTN (hypertension) I10 [facility], [place] [id number] [place] [address] 16445- 5179 Nov, [facility], [place] [id number] [place] [address] 82832- 5131 Nov, [facility], [place] [id number] [place] [address] 42771- 9050 Nov, Back pain M54.9 [facility], [place] [address] [address] 0767 Nov, Shortness of breath R06.02 [facility], [place] [id number] [place] [address], [place] [address]- 1851 Nov, [facility], [place] [id number] [place] [address], [place] [address]- 4518 Oct, [facility], [place] [id number] [place] [address] 47420- 7112 Oct, [facility], [place] [id number] [place] [address], [place] [address]- 8372 Oct, [facility], [place] [id number] [place] [address] 69209- 2816 Oct, [facility], [place] [id number] [place] [address], [place] [address]- 1391 Oct, [facility], [place] [id number] [place] [address] 72543- 1962 Oct, Back pain M54.9 [facility], [place] [id number] [place] [address] 30663- 4255 Oct, Back pain M54.9 [facility], [place] [address] [address] 4529 Oct, [facility], [place] [address] [address]- 8612 September, [facility], [place] [address] [address]- 6691 September, [facility], [place] [id number] [place] [address] 58772- 2842 September, [facility], [place] [address] [address] 3894 September, Type 2 diabetes mellitus with other diabetic neurological complication E11.49 and Hypotension, unspecified hypotension type I95.9 [facility], [place] [id number] [address] 5804 September, [facility], [place] [id number] [place] [address] 27015- 1900 September, [facility], [place] [id number] [place] [address] 32781- 7379 September, Back pain M54.9 [facility], [place] [id number] [place] [address] 53075- 2392 Aug, [facility], [place] [id number] [place] [address] 51066- 3002 Aug, Acute cystitis with hematuria N30.01 ; Ulcer of right foot, unspecified ulcer stage L97.519 ; HTN (hypertension) I10 ; COPD (chronic obstructive pulmonary disease) J44.9 and DM neuro manif type II E11.49 [facility], [place] [id number] [place] [address] 94541- 9316 Aug, Back pain M54.9 [facility], [place] [id number] [place] [address] 26308- 1780 Jul, [facility], [place] [id number] [place] [address] 76066- 6685 Jul, Back pain M54.9 [facility], [place] [address] [address]- 1382 Jul, [facility], [place] [id number] [place] [address] 25275- 1501 Jul, DM neuro manif type II E11.49 and Ulcer of right foot, unspecified ulcer stage L97.519 [facility], [place] [address] [address]- 1232 Jun, [facility], [place] [id number] [place] [address] 19616- 7931 Jun, [facility], [place] [id number] [place] [address] 25852- 2947 May, Type 2 diabetes mellitus with other diabetic neurological complication E11.49 ; GERD (gastroesophageal reflux disease) K21.9 and PAD ( peripheral artery disease) I73.9 [facility], [place] [id number] [place] [address] 12973- 0406 17 May, 2017 Decubital ulcer L89.90 ; Diabetes E11.9 and GERD ( gastroesophageal reflux disease) K21.9 [facility], [place] [address] 99784- 1773 May, [facility], [place] [id number] [place] [address] 72554- 7259 Apr, [facility], [place] [address] 86756- 1062 Mar, [facility], [place] [id number] [place] [address] 32067- 9294 Mar, [facility], [place] [address] 37129- 9813 Feb, [facility], [place] [id number] [place] [address] 55974- 3381 Feb, [facility], [place] [id number] [place] [address] 56438- 2372 Jan, [facility], [place] [id number] [place] [address] 16588- 0170 Jan, HTN (hypertension) I10 [facility], [place] [id number] [place] [address] 57672- 7126 Jan, [facility], [place] [id number] [place] [address] 12871- 8234 Dec, Back pain M54.9 [facility], [place] [id number] [place] [address] 02490- 2526 Dec, Back pain M54.9 [facility] [id number] [place] [address] 18908 -3080 Dec, Encounter for immunization Z23 and Puncture wound of right foot, initial encounter S91.331A [facility], [place] [address] [address]- 9518 Dec, [facility], [place] [id number] [place] [address] 96717- 5026 Nov, [facility], [place] [id number] [place] [address] 67595- 1387 Nov, COPD (chronic obstructive pulmonary disease) J44.9 [facility], [place] [id number] [place] [address] 29012- 7374 Nov, [facility], [place] [id number] [place] [address] 06967- 8673 Oct, [facility], [place] [id number] [place] [address] 54733- 2127 Oct, [facility], [place] [id number] [place] [address] 99344- 9703 September, Onychomycosis B35.1 and DM neuro manif type II E11.49 [facility], [place] [id number] [place] [address] 96484- 1979 September, [facility], [place] [id number] [place] [address] 68274- 4385 Aug, [facility], [place] [id number] [place] [address] 43509- 6057 Jul, Sinusitis, unspecified chronicity, unspecified location J32.9 and Cough R05 [facility], [place] [id number] [place] [address] 34975- 7821 Jul, Back pain M54.9 [facility], [place] [id number] [place] [address] 30132- 7712 14 Jun, 2016 Back pain M54.9 [facility], [place] [id number] [place] [address] 86106- 0827 06 Jun, 2016 COPD (chronic obstructive pulmonary disease) J44.9 [facility], [place] [address] [address]- 4958 17 May, 2016 [facility], [place] [address] [address]- 6542 May, [facility], [place] [address] [address]- 2324 May, Back pain M54.9 [facility], [place] [id number] [place] [address] 94177- 3919 16 May, 2016 [facility], [place] [id number] [place] [address] 88442- 5570 May, [facility], [place] [id number] [place] [address] 10218- 5457 May, Diabetes E11.9 [facility], [place] [address] [address]- 3306 May, Diabetes E11.9 ; GERD (gastroesophageal reflux [...] Need for hepatitis C screening test Z11.59 [facility], [place] [address] [address]- 7044 May, HTN (hypertension) I10 [facility], [place] [address] [address]- 0414 Apr, [facility], [place] [id number] [address]- 7568 Apr, [facility], [place] [address] [address]- 2491 Apr, [facility], [place] [address] [address]- 5385 Apr, [facility], [place] [address] [address]- 3092 Apr, [facility], [place] [id number] [place] [address] 84192- 1426 Mar, [facility], [place] [id number] [place] [address] 62673- 3191 Mar, [facility], [place] [id number] [place] [address] 84138- 5462 Mar, [facility], [place] [id number] [place] [address] 56995- 5196 Mar, [facility], [place] [id number] [place] [address] 43636- 7126 Mar, Dental examination Z01.20 [facility], [place] [id number] [place] [address] 92176- 5230 Feb, [facility], [place] [id number] [place] [address] 65115- 4208 Feb, [facility], [place] [id number] [place] [address] 00444- 4867 Feb, Back pain M54.9 [facility], [place] [id number] [place] [address] 77096- 2337 Jan, [facility], [place] [id number] [place] [address] 60662- 5406 Jan, [facility], [place] [id number] [place] [address] 01967- 4119 Dec, Diabetes E11.9 ; GERD (gastroesophageal reflux disease) K21.9 ; ED (erectile dysfunction) N52.9 ; HTN (hypertension) I10 ; Insomnia G47.00 ; COPD (chronic obstructive pulmonary disease) J44.9 ; Neuropathy G62.9 and Bipolar depression F31.30 [facility], [place] [address] [address]- 1826 Dec, Type 2 diabetes mellitus with other diabetic neurological complication E11.49 and Onychomycosis B35.1 [facility], [place] [address] [address]- 0930 Dec, [facility], [place] [id number] [place] [address] 08587- 8234 Dec, [facility], [place] [id number] [address]- 3555 Dec, [facility], [place] [id number] [place] [address] 97866- 6309 Dec, [facility], [place] [id number] [place] [address] 94149- 9225 Nov, [facility], [place] [id number] [place] [address] 40042- 9727 Nov, [facility], [place] [id number] [place] [address] 36490- 7480 Oct, [facility], [place] [address] [address]- 7170 Oct, [facility], [place] [id number] [place] [address] 38530- 6024 Oct, Back pain M54.9 [facility], [place] [id number] [place] [address] 60938- 1011 Oct, [facility], [place] [id number] [place] [address] 12315- 5467 Oct, [facility], [place] [address] [address]- 4543 Oct, [facility], [place] [id number] [place] [address] 13139- 8504 Oct, HTN (hypertension) I10 [facility], [place] [address] [address]- 1784 Oct, Back pain M54.9 [facility], [place] [id number] [place] [address] 65877- 7132 Oct, Chronic pain syndrome G89.4 [facility], [place] [id number] [place] [address] 95050- 1189 September, Back pain M54.9 [facility], [place] [id number] [place] [address] 47450- 0408 September, HTN (hypertension) I10 [facility], [place] [id number] [place] [address] 86330- 6185 Aug, Porokeratosis Q82.8 ; Onychomycosis B35.1 and Type 2 diabetes mellitus with other diabetic neurological complication E11.49 [facility], [place] [id number] [place] [address] 73641- 7140 Aug, GERD (gastroesophageal reflux disease) K21.9 ; Diabetes E11.9 ; HTN (hypertension) I10 ; Insomnia G47.00 ; Restless legs syndrome G25.81 ; COPD (chronic obstructive pulmonary disease) J44.9 ; Back pain M54.9 and Bipolar 1 disorder F31.9 [facility], [place] [id number] [place] [address] 87391- 9312 Aug, [facility], [place] [id number] [place] [address] 62642- 4588 Aug, [facility], [place] [id number] [place] [address] 72544- 1899 Aug, [facility], [place] [id number] [place] [address] 88332- 7081 Aug, [facility], [place] [id number] [place] [address] 18271- 5629 Jul, [facility], [place] [id number] [place] [address] 78796- 7865 Jul, [facility], [place] [id number] [place] [address] 88296- 8959 Jul, [facility], [place] [id number] [place] [address] 90589- 7750 16 Jul, 2015 [facility], [place] [address] [address]- 4577 Jul, [facility], [place] [id number] [place] [address] 62809- 5354 Jul, [facility], [place] [id number] [place] [address] 84114- 1356 Jun, Decubital ulcer L89.90 ; Diabetes E11.9 ; Back pain M54.9 ; HTN (hypertension) I10 and COPD (chronic obstructive pulmonary disease) J44.9 [facility], [place] [id number] [place] [address] 40769- 4540 Jun, [facility], [place] [id number] [place] [address] 02141- 4670 Jun, [facility], [place] [id number] [place] [address] 79734- 7173 Jun, [facility], [place] [address] [address]- 7367 Jun, [facility], [place] [id number] [place] [address] 14132- 3829 Jun, Diabetes E11.9 ; Insomnia G47.00 ; Decubital ulcer L89.90 ; GERD (gastroesophageal reflux disease) K21.9 ; Back pain M54.9 ; Superficial fungus infection of skin B36.9 and HTN (hypertension) I10 [id number] [facility] [address] [id number] [id number] Jun, Dental examination Z01.20 [facility], [place] [address] [address]- 3105 May, [facility], [place] [address] [address]- 0583 May, [facility], [place] [id number] [address]- 8432 May, [place] [id number] [place] [address] 82262- 6377 May, Diabetes E11.9 ; HTN (hypertension) I10 and Decubital ulcer L89.90 [facility] [id number] [place] [address] 31929- 8857 May, HTN (hypertension) I10 ; Decubital ulcer L89.90 and Diabetes E11.9 [place] [address] 53598- 8352 Apr, Diabetes E11.9 ; GERD (gastroesophageal reflux disease) K21.9 ; Back pain M54.9 ; HTN (hypertension) I10 ; Restless legs syndrome G25.81 and Decubital ulcer L89.90 [place] [id number] [place] [address] 16244- 9447 Apr, [place] [address] 59403- 7477 Apr, Diabetes E11.9 ; HTN (hypertension) I10 ; Restless legs syndrome G25.81 ; GERD (gastroesophageal reflux disease) K21.9 and COPD ( chronic obstructive pulmonary disease) J44.9 [facility] [facility] [id number] [place] [address] 41041- 3696 Mar, [place] [id number] [place] [address] 74378- 4996 Mar, [place] [id number] [place] [address] 76126- 1012 Mar, Diabetes E11.9 ; Abscess L02.91 and Restless legs syndrome G25.81 [place] [address] 85278- 5558 Mar, [place] [id number] [place] [address] 09568- 8014 Feb, GERD (gastroesophageal reflux disease) K21.9 ; Back pain M54.9 ; ED (erectile dysfunction) N52.9 ; Diabetes E11.9 ; HTN (hypertension) I10 and Insomnia G47.00 [place] [id number] [place] [address] 29262- 9089 Feb, [facility], [place] [id number] [place] [address] 76918- 7875 Feb, [place] [facility] [id number] [place] [address] 66734- 9863 Jan, [place] [address] 62525- 1118 Jan, Diabetes 250.00 ; Nondependent cannabis abuse, continuous 305.21 ; Cough 786.2 ; Schizoaffective disorder, unspecified 295.70 ; Sciatica 724.3 ; Other, mixed, or unspecified nondependent drug abuse, unspecified 305.90 ; Chronic pain 338.29 ; GERD (gastroesophageal reflux disease) 530.81 and HTN (hypertension) 401.9 [id number] [place] [address] 72700- 4113 Jan, [place] [id number] [place] [address] 56843- 7400 Jan, [place] [id number] [place] [address] 83378- 5346 Jan, Chronic pain associated with significant psychosocial dysfunction 338.4 ; Diabetes mellitus without mention of complication, type I [ juvenile type], uncontrolled 250.03 ; Benign essential hypertension 401.1 ; Schizoaffective disorder, unspecified 295.70 ; Wheezing 786.07 ; Ear ache 388.70 ; Cough 786.2 ; Sciatica 724.3 and Foot pain, bilateral 729.5 [place] [id number] [place] [address] 41173- 2272 Dec, [place] [id number] [place] [address] 61079- 3631 Dec, [place] [id number] [place] [address] 49219- 2271 Dec, [place] [address] [address] Dec, [facility], [place] [address] [address] Dec, [facility], [place] [address] [address] Nov, Elevated liver enzymes 790.5 [facility], [place] [address] [address] Nov, [facility], [place] [address] [address] 8[address] Nov, [facility], [place] [address] [address]00 Nov, [facility], [place] [address] [address] Nov, Benign essential hypertension 401.1 ; Diabetes mellitus without mention of complication, type I [juvenile type], uncontrolled 250.03 and Nondependent cannabis abuse, continuous 305.21 [facility], [place] [address] [address] Oct, Cellulitis 682.9 and Benign essential hypertension 401.1 [facility], [place] [address] [address] 8[address] Oct, [facility], [place] [address] [address] September, [facility], [place] [address] [address] 8714 September, [facility], [place] [address] [address] 9337 Aug, [facility], [place] [address] [address] 0904 Aug, [facility], [place] [id number] [address] 9808 Aug, [facility] [place] [facility] [address] [id number] [place] [address] 9673 Aug, [facility] [place] [facility] [address] [id number] [place] [address] 1901 Jul, [facility] [place] [facility] [address] [id number] [place] [address]- 4975 Jul, [facility] [place] [facility] [address] [id number] [place] [address]- 8157 Jul, [facility] [place] [facility] [address] [id number] [place] [address]- 8065 Jul, [facility] [place] [facility] [address] [id number] [place] [address]- 0141 Jul, [facility] [place] [facility] [address] [id number] [place] [address]- 7552 Jul, [facility] [place] [facility] [address] [id number] [place] [address]- 0915 Jun, [facility] [place] [facility] [address] [id number] [place] [address]- 3849 Jun, [facility] [place] [facility] [address] [id number] [place] [address]- 0301 Jun, [facility] [place] [facility] [address] [id number] [place] [address]- 5485 Jun, [facility] [place] [facility] [address] [id number] [place] [address]- 3682 Jun, [facility] [place] [facility] [address] [id number] [place] [address] May, [facility] [place] [facility] [address] [id number] [place] [address] May, [facility] [place] [facility] [address] [id number] [place] [address] May, [facility] [place] [facility] [address] [id number] [place] [address] May, [facility] [place] [facility] [address] [id number] [place] [address] May, [facility] [place] [facility] [address] [id number] [place] [address] May, [facility] [place] [facility] [address] [id number] [place] [address] May, [facility] [place] [facility] [address] [id number] [place] [address] May, [facility] [place] [facility] [address] [id number] [place] [address] Apr, [facility] [place] [facility] [address] [id number] [place] [address] Apr, [facility] [place] [facility] [address] [id number] [place] [address] Apr, [facility] [place] [facility] [address] [id number] [place] [address] Apr, [facility] [place] [facility] [address] [id number] [place] [address] Mar, [facility] [place] [facility] [address] [facility] [place] [id number] [place] [address] Mar, [facility] [place] [facility] [address] [id number] [place] [address] Mar, [facility] [place] [facility] [address] [id number] [place] [address] Mar, [facility] [place] [facility] [address] [id number] [place] [address] Feb, [facility] [place] [facility] [address] [id number] [place] [address] Feb, [facility] [place] [facility] [address] [id number] [place] [address] Feb, [facility] [place] [facility] [address] [id number] [place] [address]61 Feb, [facility] [place] [facility] [address] [id number] [place] [address] 47[address] Feb, [facility] [place] [facility] [address] [id number] [place] [address] Feb, [facility] [place] [facility] [address] [id number] [place] [address] Jan, [facility] [place] [facility] [address] [id number] [place] [address] Jan, [facility] [place] [facility] [address] [id number] [place] [address] Jan, [facility] [place] [facility] [address] [id number] [place] [address] 54[address] Jan, [facility] [place] [facility] [address] [id number] [place] [address] Dec, [facility] [place] [facility] [address] [id number] [place] [address] Dec, [facility] [place] [facility] [address] [id number] [place] [address] 2404 Dec, [facility] [place] [facility] [address] [id number] [place] [address] Dec, [facility] [place] [facility] [address] [id number] [place] [address] Dec, [facility] [place] [facility] [address] [id number] [place] [address]23 Dec, [facility] [place] [facility] [address] [id number] [place] [address] 1431 Oct, [facility] [place] [facility] [address] [id number] [place] [address] 4066 Oct, [facility] [place] [facility] [address] [id number] [place] [address]268 September, [facility] [place] [facility] [address] [id number] [place] [address] September, [facility] [place] [facility] [address] [id number] [place] [address] 285[address] September, [facility] [place] [facility] [address] [id number] [place] [address] September, [facility] [place] [facility] [address] [id number] [place] [address] September, [facility] [place] [facility] [address] [id number] [place] [address] September, [facility] [place] [facility] [address] [id number] [place] [address] Aug, [facility] [place] [facility] [address] [id number] [place] [address] 9868 Aug, [facility] [place] [facility] [address] [id number] [place] [address] Aug, [facility] [place] [facility] [address] [id number] [place] [address] Aug, [facility] [place] [facility] [address] [id number] [place] [address] Jul, [facility] [place] [facility] [address] [id number] [place] [address] 3915 Jul, [facility] [place] [facility] [address] [id number] [place] [address] 7942 Jun, [facility] [place] [facility] [address] [id number] [place] [address] 1610 Jun, [facility] [place] [facility] [address] [id number] [place] [address]4 May, [facility] [place] [facility] [address] [id number] [place] [address] 4814 May, [facility] [place] [facility] [address] [id number] [place] [address] Jan, [facility] [address] [id number] [place] [address] 64[address] Dec, [facility] [address] [id number] [place] [address]396 Jun, [facility] [address] [id number] [place] [address] 4718 May, [facility] [address] [id number] [place] [address] 48[address] Nov, [facility] [address] [id number] [place] [address] September, [facility] [address] [id number] [place] [address] Aug, [facility] [address] [id number] [place] [address] 8677 Aug, [facility] [address] [id number] [place] [address] Aug, [facility] [address] [id number] [place] [address] 4076 Aug, [facility] [address] [id number] [place] [address]073 Nov, [facility] [address] [id number] [place] [address] 58[address] Oct, [facility] [address] [id number] [place] [address] 16[address] Jul, [facility] [place] [facility] [address] [id number] [place] [address]- 9780 Feb, [facility] [address] [id number] [place] [address] 4644 Feb, [facility] [address] [id number] [place] [address]- 8529 Apr, [facility] [place] [address] [facility] [place] [id number] [place] [address] Apr, [facility] [place] [address] [facility] [place] [id number] [place] [address] Feb, [facility] [place] [address] [facility] [place] [id number] [place] [address] Feb, [facility] [place] [address] [facility] [place] [id number] [place] [address] Jul, IMMUNIZATIONS No Known Immunizations SOCIAL HISTORY Never Assessed REASON FOR VISIT Hydrocodone and Lyrica 08/21 PLAN OF CARE VITAL SIGNS MEDICATIONS Medication Instructions Dosage Frequency Start Date End Date Duration Status Lyrica 150 MG Orally Twice a day 1 capsule 12h 28 days Active Hydrocodone-Ibuprofen 7.5-200 MG Orally 3 times a day 1 tablet as needed 8h 13 Aug, 2017 28 days Active RESULTS No Results PROCEDURES [...]
--- OUTSIDE RECORDS SUMMARY | 2018-09-15 22:46 | XMS REPORT ---
Author Author YVES BLEVINS [facility] Address [address] [place] [address] Care Team Providers Care Director Cpg Name Role Phone YVES BLEVINS Unavailable PROBLEMS Type Condition ICD9-CM Code [id number] Code Onset Dates Condition Status SNOMED Code Problem HTN (hypertension) I10 Active 13515350 Problem Restless legs syndrome G25.81 Active 091487598 Problem GERD (gastroesophageal reflux disease) K21.9 Active 130984774 Problem ED (erectile dysfunction) N52.9 Active 237725022 Problem PAD (peripheral artery disease) I73.9 Active 683090787 Problem Ulcer of right foot, unspecified ulcer stage L97.519 Active 50777290 Problem 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 014130795 Problem COPD (chronic obstructive pulmonary disease) J44.9 Active 08978761 Problem DM neuro manif type II E11.49 Active 98312280 Problem Sinusitis, unspecified chronicity, unspecified location J32.9 Active 39953423 ALLERGIES No Information ENCOUNTERS Encounter Location Date Diagnosis [facility] [id number] [place] [address] 05121- 3732 Dec, [facility] [id number] [place] [address] 26166- 2960 Nov, Cellulitis of toe of right foot L03.031 ; Polyneuropathy in diseases classified elsewhere G63 and HTN (hypertension) I10 [facility] [id number] [place] [address] 20200- 2017 Nov, [facility] [id number] [place] [address] 47102- 2770 Nov, [facility] [id number] [place] [address] 22182- 9835 Nov, Back pain M54.9 [facility] [address], [place] [address] 8417 Nov, Shortness of breath R06.02 [facility] [id number] [place] [address], [place] [address]- 0732 Nov, [facility] [id number] [place] [address], [place] [address]- 7892 Oct, [facility] [id number] [place] [address] 15216- 7617 Oct, [facility] [id number] [place] [address], [place] [address]- 5383 Oct, [facility] [id number] [place] [address] 53439- 6441 Oct, [facility] [id number] [place] [address], [place] [address]- 5518 Oct, [facility] [id number] [place] [address] 67990- 2431 Oct, Back pain M54.9 [facility] [id number] [place] [address] 62769- 2536 Oct, Back pain M54.9 [facility] [address], [place] [address]- 7527 Oct, [facility] [address], [place] [address]- 5975 September, [facility] [address], [place] [address]- 2908 September, [facility] [id number] [place] [address] 42305- 1974 September, [facility] [address], [place] [address]- 3044 September, Type 2 diabetes mellitus with other diabetic neurological complication E11.49 and Hypotension, unspecified hypotension type I95.9 [facility] [id number] [address] 2370 September, [facility] [id number] [place] [address] 39487- 6339 September, [facility] [id number] [place] [address] 92837- 2946 September, Back pain M54.9 [facility] [id number] [place] [address] 21168- 8954 Aug, [facility] [id number] [place] [address] 20545- 3995 Aug, Acute cystitis with hematuria N30.01 ; Ulcer of right foot, unspecified ulcer stage L97.519 ; HTN (hypertension) I10 ; COPD (chronic obstructive pulmonary disease) J44.9 and DM neuro manif type II E11.49 [facility] [id number] [place] [address] 26032- 7744 Aug, Back pain M54.9 [facility] [id number] [place] [address] 08302- 7696 Jul, [facility] [id number] [place] [address] 95225- 1499 Jul, Back pain M54.9 [facility] [address], [place] [address]- 2049 Jul, [facility] [id number] [place] [address] 33905- 9068 Jul, DM neuro manif type II E11.49 and Ulcer of right foot, unspecified ulcer stage L97.519 [facility] [address], [place] [address]- 3241 Jun, [facility] [id number] [place] [address] 95133- 0251 Jun, [facility] [id number] [place] [address] 10954- 9938 May, Type 2 diabetes mellitus with other diabetic neurological complication E11.49 ; GERD (gastroesophageal reflux disease) K21.9 and PAD ( peripheral artery disease) I73.9 [facility] [id number] [place] [address] 82859- 8371 17 May, 2017 Decubital ulcer L89.90 ; Diabetes E11.9 and GERD ( gastroesophageal reflux disease) K21.9 [facility] [address] 54872- 3293 May, [facility] [id number] [place] [address] 30546- 4237 Apr, [facility] [address] 96008- 8230 Mar, [facility] [id number] [place] [address] 44305- 2883 Mar, [facility] [address] 32878- 0470 Feb, [facility] [id number] [place] [address] 23026- 3810 Feb, [facility] [id number] [place] [address] 22864- 0266 Jan, [facility] [id number] [place] [address] 74731- 1511 Jan, HTN (hypertension) I10 [facility] [id number] [place] [address] 90624- 9328 Jan, [facility] [id number] [place] [address] 80195- 5897 Dec, Back pain M54.9 [facility] [id number] [place] [address] 88881- 0993 Dec, Back pain M54.9 [facility] [id number] [place] [address] 94591 -9171 Dec, Encounter for immunization Z23 and Puncture wound of right foot, initial encounter S91.331A [facility] [address], [place] [address]- 3350 Dec, [facility] [id number] [place] [address] 32771- 9696 Nov, [facility] [id number] [place] [address] 10663- 0308 Nov, COPD (chronic obstructive pulmonary disease) J44.9 [facility] [id number] [place] [address] 50675- 5074 Nov, [facility] [id number] [place] [address] 11431- 7520 Oct, [facility] [id number] [place] [address] 29240- 3417 Oct, [facility] [id number] [place] [address] 58847- 5380 September, Onychomycosis B35.1 and DM neuro manif type II E11.49 [facility] [id number] [place] [address] 84714- 5291 September, [facility] [id number] [place] [address] 12844- 2702 Aug, [facility] [id number] [place] [address] 72693- 1063 Jul, Sinusitis, unspecified chronicity, unspecified location J32.9 and Cough R05 [facility] [id number] [place] [address] 24821- 1931 Jul, Back pain M54.9 [facility] [id number] [place] [address] 32374- 0531 14 Jun, 2016 Back pain M54.9 [facility] [id number] [place] [address] 24226- 0523 06 Jun, 2016 COPD (chronic obstructive pulmonary disease) J44.9 [facility] [address], [place] [address]- 5826 17 May, 2016 [facility] [address], [place] [address]- 5692 May, [facility] [address], [place] [address]- 9781 May, Back pain M54.9 [facility] [id number] [place] [address] 01547- 9043 16 May, 2016 [facility] [id number] [place] [address] 85815- 9425 May, [facility] [id number] [place] [address] 12224- 2580 May, Diabetes E11.9 [facility] [address], [place] [address]- 5070 May, Diabetes E11.9 ; GERD (gastroesophageal reflux [...] for hepatitis C screening test Z11.59 [facility] [address], [place] [address]- 0333 May, HTN (hypertension) I10 [facility] [address], [place] [address]- 3539 Apr, [facility] [address] [address]- 5184 Apr, [facility] [address], [place] [address]- 8908 Apr, [facility] [address], [place] [address]- 1671 Apr, [facility] [address], [place] [address]- 0621 Apr, [facility] [id number] [place] [address] 81176- 6539 Mar, [facility] [id number] [place] [address] 11428- 2645 Mar, [facility] [id number] [place] [address] 00845- 8806 Mar, [facility] [id number] [place] [address] 52915- 0930 Mar, [facility] [id number] [place] [address] 71259- 5687 Mar, Dental examination Z01.20 [facility] [id number] [place] [address] 56610- 8628 Feb, [facility] [id number] [place] [address] 54100- 3239 Feb, [facility] [id number] [place] [address] 16968- 6801 Feb, Back pain M54.9 [facility] [id number] [place] [address] 03780- 8762 Jan, [facility] [id number] [place] [address] 06658- 8432 Jan, [facility] [id number] [place] [address] 60236- 7433 Dec, Diabetes E11.9 ; GERD (gastroesophageal reflux disease) K21.9 ; ED (erectile dysfunction) N52.9 ; HTN (hypertension) I10 ; Insomnia G47.00 ; COPD (chronic obstructive pulmonary disease) J44.9 ; Neuropathy G62.9 and Bipolar depression F31.30 [facility] [address], [place] [address]- 1731 Dec, Type 2 diabetes mellitus with other diabetic neurological complication E11.49 and Onychomycosis B35.1 [facility] [address], [place] [address]- 6741 Dec, [facility] [id number] [place] [address] 92373- 4526 Dec, [facility] [address] [address]- 2593 Dec, [facility] [id number] [place] [address] 30615- 0433 Dec, [facility] [id number] [place] [address] 07328- 7885 Nov, [facility] [id number] [place] [address] 36129- 2144 Nov, [facility] [id number] [place] [address] 15675- 5779 Oct, [facility] [address], [place] [address]- 2620 Oct, [facility] [id number] [place] [address] 46028- 0196 Oct, Back pain M54.9 [facility] [id number] [place] [address] 18322- 5157 Oct, [facility] [id number] [place] [address] 69074- 1709 Oct, [facility] [address], [place] [address]- 2145 Oct, [facility] [id number] [place] [address] 18335- 4878 Oct, HTN (hypertension) I10 [facility] [address], [place] [address]- 1036 Oct, Back pain M54.9 [facility] [id number] [place] [address] 36761- 0642 Oct, Chronic pain syndrome G89.4 [facility] [id number] [place] [address] 47217- 2022 September, Back pain M54.9 [facility] [id number] [place] [address] 06623- 6183 September, HTN (hypertension) I10 [facility] [id number] [place] [address] 53807- 1410 Aug, Porokeratosis Q82.8 ; Onychomycosis B35.1 and Type 2 diabetes mellitus with other diabetic neurological complication E11.49 [facility] [id number] [place] [address] 34107- 3078 Aug, GERD (gastroesophageal reflux disease) K21.9 ; Diabetes E11.9 ; HTN (hypertension) I10 ; Insomnia G47.00 ; Restless legs syndrome G25.81 ; COPD (chronic obstructive pulmonary disease) J44.9 ; Back pain M54.9 and Bipolar 1 disorder F31.9 [facility] [id number] [place] [address] 77530- 6878 Aug, [facility] [id number] [place] [address] 31971- 3386 Aug, [facility] [id number] [place] [address] 40976- 6504 Aug, [facility] [id number] [place] [address] 79001- 1761 Aug, [facility] [id number] [place] [address] 27171- 7472 Jul, [facility] [id number] [place] [address] 35835- 5937 Jul, [facility] [id number] [place] [address] 39819- 7031 Jul, [facility] [id number] [place] [address] 22538- 8478 16 Jul, 2015 [facility] [address], [place] [address]- 4561 Jul, [facility] [address] [place] [address] 45557- 8558 Jul, [facility] [address] [place] [address] 82631- 6981 Jun, Decubital ulcer L89.90 ; Diabetes E11.9 ; Back pain M54.9 ; HTN (hypertension) I10 and COPD (chronic obstructive pulmonary disease) J44.9 [facility] [address] [place] [address] 85684- 7453 Jun, [facility] [address] [place] [address] 74364- 0500 Jun, [facility] [id number] [place] [address] 95718- 1794 Jun, [facility] [address], [place] [address]- 4564 Jun, [facility] [address] [place] [address] 94189- 2509 Jun, Diabetes E11.9 ; Insomnia G47.00 ; Decubital ulcer L89.90 ; GERD (gastroesophageal reflux disease) K21.9 ; Back pain M54.9 ; Superficial fungus infection of skin B36.9 and HTN (hypertension) I10 [address] [facility] [id number] [id number] Jun, Dental examination Z01.20 [facility] [address], [place] [address]- 2853 May, [facility] [address], [place] [address]- 5093 May, [facility] [id number], [place] [address]- 4225 May, [place] [id number] [place] [address] 14094- 6186 May, Diabetes E11.9 ; HTN (hypertension) I10 and Decubital ulcer L89.90 [place] [facility] [id number] [place] [address] 37692- 5095 May, HTN (hypertension) I10 ; Decubital ulcer L89.90 and Diabetes E11.9 [place] [address] 18818- 0186 Apr, Diabetes E11.9 ; GERD (gastroesophageal reflux disease) K21.9 ; Back pain M54.9 ; HTN (hypertension) I10 ; Restless legs syndrome G25.81 and Decubital ulcer L89.90 [facility] [id number] [place] [address] 58043- 8969 Apr, [place] [address] 54598- 8491 Apr, Diabetes E11.9 ; HTN (hypertension) I10 ; Restless legs syndrome G25.81 ; GERD (gastroesophageal reflux disease) K21.9 and COPD ( chronic obstructive pulmonary disease) J44.9 [place] [facility] [id number] [place] [address] 63799- 5902 Mar, [place] [facility] [id number] [place] [address] 44791- 7407 Mar, [place] [id number] [place] [address] 78385- 3084 Mar, Diabetes E11.9 ; Abscess L02.91 and Restless legs syndrome G25.81 [place] [address] 49167- 8797 Mar, [place] [id number] [place] [address] 91749- 0258 Feb, GERD (gastroesophageal reflux disease) K21.9 ; Back pain M54.9 ; ED (erectile dysfunction) N52.9 ; Diabetes E11.9 ; HTN (hypertension) I10 and Insomnia G47.00 [place] [facility] [id number] [place] [address] 27909- 3958 Feb, [place] [address] 91447- 4080 Feb, [place] [id number] [place] [address] 89688- 6950 Jan, [place] [address] 63331- 5545 Jan, Diabetes 250.00 ; Nondependent cannabis abuse, continuous 305.21 ; Cough 786.2 ; Schizoaffective disorder, unspecified 295.70 ; Sciatica 724.3 ; Other, mixed, or unspecified nondependent drug abuse, unspecified 305.90 ; Chronic pain 338.29 ; GERD (gastroesophageal reflux disease) 530.81 and HTN (hypertension) 401.9 [id number] [place] [address] 25856- 5813 Jan, [place] [id number] [place] [address] 21879- 2259 Jan, [id number] [place] [address] 28138- 7789 Jan, Diabetes mellitus without mention of complication, type I [ juvenile type], uncontrolled 250.03 ; Schizoaffective disorder, unspecified 295.70 ; Benign essential hypertension 401.1 ; Chronic pain associated with significant psychosocial dysfunction 338.4 ; Wheezing 786.07 ; Ear ache 388.70 ; Cough 786.2 ; Sciatica 724.3 and Foot pain, bilateral 729.5 [place] [id number] [place] [address] 71503- 7877 Dec, [place] [address] 60503- 6701 Dec, [place] [id number] [place] [address] 75550- 6665 Dec, [place] [address], [place] [address]- 5672 Dec, [facility] [address], [place] [address]- 1903 Dec, [facility] [address], [place] [address]- 0931 Nov, Elevated liver enzymes 790.5 [facility] [address] [place] [address] 12461- 3044 Nov, [facility] [address], [place] [address]- 4210 Nov, [facility] [address], [place] [address]- 4430 Nov, [facility] [address], [place] [address]- 4893 Nov, Diabetes mellitus without mention of complication, type I [ juvenile type], uncontrolled 250.03 ; Benign essential hypertension 401.1 and Nondependent cannabis abuse, continuous 305.21 [facility] [address], [place] [address]- 2360 Oct, Cellulitis 682.9 and Benign essential hypertension 401.1 [facility] [address], [place] [address]- 2905 Oct, [facility] [address], [place] [address]- 0496 September, [facility] [address], [place] [address]- 7060 September, [facility] [address], [place] [address]- 2577 Aug, [facility] [address], [place] [address]- 8569 Aug, [facility] [id number], [place] [address]- 2678 Aug, [facility] [place] [facility] [address] [id number] [place] [address]- 5784 Aug, [facility] [place] [facility] [address] [id number] [place] [address]- 3631 Jul, [facility] [place] [facility] [address] [id number] [place] [address]- 9013 Jul, [facility] [place] [facility] [address] [id number] [place] [address]- 0635 Jul, [facility] [place] [facility] [address] [id number] [place] [address]- 2383 Jul, [facility] [place] [facility] [address] [id number] [place] [address]- 7562 Jul, [facility] [place] [facility] [address] [id number] [place] [address]- 8314 Jul, [facility] [place] [facility] [address] [id number] [place] [address]- 1104 Jun, [facility] [place] [facility] [address] [id number] [place] [address]- 1950 Jun, [facility] [place] [facility] [address] [id number] [place] [address]- 27[address] Jun, [facility] [place] [facility] [address] [id number] [place] [address] Jun, [facility] [place] [facility] [address] [id number] [place] [address] Jun, [facility] [place] [facility] [address] [id number] [place] [address] May, [facility] [place] [facility] [address] [id number] [place] [address] May, [facility] [place] [facility] [address] [id number] [place] [address] May, [facility] [place] [facility] [address] [id number] [place] [address] May, [facility] [place] [facility] [address] [id number] [place] [address] May, [facility] [place] [facility] [address] [id number] [place] [address] May, [facility] [place] [facility] [address] [id number] [place] [address] May, [facility] [place] [facility] [address] [id number] [place] [address] May, [facility] [place] [facility] [address] [id number] [place] [address] Apr, [facility] [place] [facility] [address] [id number] [place] [address] Apr, [facility] [place] [facility] [address] [id number] [place] [address] Apr, [facility] [place] [facility] [address] [id number] [place] [address] Apr, [facility] [place] [facility] [address] [id number] [place] [address] Mar, [facility] [place] [facility] [address] [facility] [id number] [place] [address] Mar, [facility] [place] [facility] [address] [id number] [place] [address] Mar, [facility] [place] [facility] [address] [id number] [place] [address] Mar, [facility] [place] [facility] [address] [id number] [place] [address] Feb, [facility] [place] [facility] [address] [id number] [place] [address] Feb, [facility] [place] [facility] [address] [id number] [place] [address] Feb, [facility] [place] [facility] [address] [id number] [place] [address] Feb, [facility] [place] [facility] [address] [id number] [place] [address] Feb, [facility] [place] [facility] [address] [id number] [place] [address] Feb, [facility] [place] [facility] [address] [id number] [place] [address] Jan, [facility] [place] [facility] [address] [id number] [place] [address] Jan, [facility] [place] [facility] [address] [id number] [place] [address] Jan, [facility] [place] [facility] [address] [id number] [place] [address] Jan, [facility] [place] [facility] [address] [id number] [place] [address] Dec, [facility] [place] [facility] [address] [id number] [place] [address] Dec, [facility] [place] [facility] [address] [id number] [place] [address] Dec, [facility] [place] [facility] [address] [id number] [place] [address] Dec, [facility] [place] [facility] [address] [id number] [place] [address] Dec, [facility] [place] [facility] [address] [id number] [place] [address] Dec, [facility] [place] [facility] [address] [id number] [place] [address] Oct, [facility] [place] [facility] [address] [id number] [place] [address] Oct, [facility] [place] [facility] [address] [id number] [place] [address] September, [facility] [place] [facility] [address] [id number] [place] [address]- [address] September, [facility] [place] [facility] [address] [id number] [place] [address] September, [facility] [place] [facility] [address] [id number] [place] [address] September, [facility] [place] [facility] [address] [id number] [place] [address] September, [facility] [place] [facility] [address] [id number] [place] [address] September, [facility] [place] [facility] [address] [id number] [place] [address] Aug, [facility] [place] [facility] [address] [id number] [place] [address] Aug, [facility] [place] [facility] [address] [id number] [place] [address] Aug, [facility] [place] [facility] [address] [id number] [place] [address] Aug, [facility] [place] [facility] [address] [id number] [place] [address] Jul, [facility] [place] [facility] [address] [id number] [place] [address] Jul, [facility] [place] [facility] [address] [id number] [place] [address] Jun, [facility] [place] [facility] [address] [id number] [place] [address] Jun, [facility] [place] [facility] [address] [id number] [place] [address] May, [facility] [place] [facility] [address] [id number] [place] [address] May, [facility] [place] [facility] [address] [id number] [place] [address] Jan, [facility] [address] [id number] [place] [address] Dec, [facility] [address] [id number] [place] [address] Jun, [facility] [address] [id number] [place] [address] May, [facility] [address] [id number] [place] [address] Nov, [facility] [address] [id number] [place] [address] September, [facility] [address] [id number] [place] [address] Aug, [facility] [address] [id number] [place] [address] Aug, [facility] [address] [id number] [place] [address] Aug, [facility] [address] [id number] [place] [address] Aug, [facility] [address] [id number] [place] [address] Nov, [facility] [address] [id number] [place] [address] Oct, [facility] [address] [id number] [place] [address] Jul, [facility] [place] [facility] [address] [id number] [place] [address] Feb, [facility] [address] [id number] [place] [address] Feb, [facility] [address] [id number] [place] [address] Apr, [facility] [address] [id number], [place] [address] Apr, [facility] [address] [id number], [place] [address] Feb, [facility] [address] [id number], [place] [address] Feb, [facility] [address] [id number], [place] [address] Jul, IMMUNIZATIONS No Known Immunizations SOCIAL HISTORY Never Assessed REASON FOR VISIT PLAN OF CARE VITAL SIGNS MEDICATIONS Unknown [...]
[2018-09-15 22:47] LABS: ALANINE AMINOTRANSFERASE 28 U/L (0-55); ALBUMIN 3.8 GM/DL (3.2-4.5); ALKALINE PHOSPHATASE 92 U/L (40-136); BILIRUBIN,TOTAL 1.1 MG/DL (0.1-1.0); BUN/CREATININE RATIO 13; CALCIUM 8.8 MG/DL (8.5-10.1); CARBON DIOXIDE 17 MMOL/L (21-32); CHLORIDE 91 MMOL/L (98-107); CREATININE SERUM 0.86 MG/DL (0.60-1.30); GFR ESTIMATED > 60; GLUCOSE 88 MG/DL (70-105); POTASSIUM 4.4 MMOL/L (3.6-5.0); SALICYLATE < 5.0 MG/DL (5.0-20.0); TOTAL PROTEIN 6.5 GM/DL (6.4-8.2)
--- OUTSIDE RECORDS SUMMARY | 2018-09-15 22:47 | XMS REPORT ---
Author Author EMILIANO HAWTHORNE Organization [facility] Address [address] [place] [address] Care Team Providers Care Casing Worker Name Role Phone EMILIANO HAWTHORNE Unavailable PROBLEMS Type Condition ICD9-CM Code TNS81-FF Code Onset Dates Condition Status SNOMED Code Problem HTN (hypertension) I10 Active 11376505 Problem Restless legs syndrome G25.81 Active 212565138 Problem GERD (gastroesophageal reflux disease) K21.9 Active 778573740 Problem ED (erectile dysfunction) N52.9 Active 762857319 Problem PAD (peripheral artery disease) I73.9 Active 025438081 Problem Ulcer of right foot, unspecified ulcer stage L97.519 Active 19174958 Problem 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 141928650 Problem COPD (chronic obstructive pulmonary disease) J44.9 Active 19043749 Problem DM neuro manif type II E11.49 Active 54500484 Problem Sinusitis, unspecified chronicity, unspecified location J32.9 Active 52482997 ALLERGIES No Information ENCOUNTERS Encounter Location Date Diagnosis [facility] [id number] [place] [address] 43302- 1077 Dec, [facility] [id number] [place] [address] 95374- 0219 Nov, Cellulitis of toe of right foot L03.031 ; Polyneuropathy in diseases classified elsewhere G63 and HTN (hypertension) I10 [facility] [id number] [place] [address] 27914- 5513 Nov, [facility] [id number] [place] [address] 35042- 9836 Nov, [facility] [id number] [place] [address] 48501- 6931 Nov, Back pain M54.9 [facility] [address] [address]- 9309 Nov, Shortness of breath R06.02 [facility] [id number] [place] [address], [place] [address]- 6329 Nov, [facility] [id number] [place] [address], [place] [address]- 1553 Oct, [facility] [id number] [place] [address] 82247- 6207 Oct, [facility] [id number] [place] [address], [place] [address]- 0818 Oct, [facility] [id number] [place] [address] 51905- 6995 Oct, [facility] [id number] [place] [address], [place] [address]- 2545 Oct, [facility] [id number] [place] [address] 54765- 4011 Oct, Back pain M54.9 [facility] [id number] [place] [address] 74286- 2982 Oct, Back pain M54.9 [facility] [address] [address]- 5766 Oct, [facility] [address] [address]- 3282 September, [facility] [address] [address]- 6087 September, [facility] [id number] [place] [address] 41466- 9893 September, [facility] [address] [address]- 0956 September, Type 2 diabetes mellitus with other diabetic neurological complication E11.49 and Hypotension, unspecified hypotension type I95.9 [facility] [id number] [address]- 4220 September, [facility] [id number] [place] [address] 22357- 6078 September, [facility] [id number] [place] [address] 60227- 3732 September, Back pain M54.9 [facility] [id number] [place] [address] 74363- 1726 Aug, [facility] [id number] [place] [address] 25230- 5880 Aug, Acute cystitis with hematuria N30.01 ; Ulcer of right foot, unspecified ulcer stage L97.519 ; HTN (hypertension) I10 ; COPD (chronic obstructive pulmonary disease) J44.9 and DM neuro manif type II E11.49 [facility] [id number] [place] [address] 55589- 1219 Aug, Back pain M54.9 [facility] [id number] [place] [address] 03976- 2780 Jul, [facility] [id number] [place] [address] 17857- 1298 Jul, Back pain M54.9 [facility] [address] [address]- 5734 Jul, [facility] [id number] [place] [address] 68528- 2066 Jul, DM neuro manif type II E11.49 and Ulcer of right foot, unspecified ulcer stage L97.519 [facility] [address] [address]- 8784 Jun, [facility] [id number] [place] [address] 05050- 7043 Jun, [facility] [id number] [place] [address] 01439- 7429 May, Type 2 diabetes mellitus with other diabetic neurological complication E11.49 ; GERD (gastroesophageal reflux disease) K21.9 and PAD ( peripheral artery disease) I73.9 [facility] [id number] [place] [address] 39506- 9265 17 May, 2017 Decubital ulcer L89.90 ; Diabetes E11.9 and GERD ( gastroesophageal reflux disease) K21.9 [facility] [address] 78687- 2028 May, [facility] [id number] [place] [address] 65139- 9463 Apr, [facility] [address] 19081- 7342 Mar, [facility] [id number] [place] [address] 67015- 2599 Mar, [facility] [address] 27403- 8787 Feb, [facility] [id number] [place] [address] 35078- 7932 Feb, [facility] [id number] [place] [address] 34069- 4211 Jan, [facility] [id number] [place] [address] 67426- 8016 Jan, HTN (hypertension) I10 [facility] [id number] [place] [address] 72316- 4283 Jan, [facility] [id number] [place] [address] 91946- 7194 Dec, Back pain M54.9 [facility] [id number] [place] [address] 43384- 3390 Dec, Back pain M54.9 [facility] [id number] [place] [address] 19511 -6234 Dec, Encounter for immunization Z23 and Puncture wound of right foot, initial encounter S91.331A [facility] [address] [address]- 3346 Dec, [facility] [id number] [place] [address] 71283- 5486 Nov, [facility] [id number] [place] [address] 17334- 1510 Nov, COPD (chronic obstructive pulmonary disease) J44.9 [facility] [id number] [place] [address] 02093- 5155 Nov, [facility] [id number] [place] [address] 17199- 6333 Oct, [facility] [id number] [place] [address] 16344- 3414 Oct, [facility] [id number] [place] [address] 52220- 0584 September, Onychomycosis B35.1 and DM neuro manif type II E11.49 [facility] [id number] [place] [address] 57816- 1643 September, [facility] [id number] [place] [address] 81338- 1038 Aug, [facility] [id number] [place] [address] 79477- 9710 Jul, Sinusitis, unspecified chronicity, unspecified location J32.9 and Cough R05 [facility] [id number] [place] [address] 57811- 5692 Jul, Back pain M54.9 [facility] [id number] [place] [address] 22114- 1565 14 Jun, 2016 Back pain M54.9 [facility] [id number] [place] [address] 68854- 6335 06 Jun, 2016 COPD (chronic obstructive pulmonary disease) J44.9 [facility] [address] [address]- 5266 17 May, 2016 [facility] [address] [address]- 3049 May, [facility] [address] [address]- 1734 May, Back pain M54.9 [facility] [id number] [place] [address] 32520- 7564 16 May, 2016 [facility] [id number] [place] [address] 53393- 8161 May, [facility] [id number] [place] [address] 79834- 3003 May, Diabetes E11.9 [facility] [address] [address]- 9704 May, Diabetes E11.9 ; GERD (gastroesophageal reflux [...] Need for hepatitis C screening test Z11.59 [facility] [address] [address]- 4623 May, HTN (hypertension) I10 [facility] [address] [address]- 0687 Apr, [facility] [id number] [address]- 6941 Apr, [facility] [address] [address]- 2469 Apr, [facility] [address] [address]- 8334 Apr, [facility] [address] [address]- 7534 Apr, [facility] [id number] [place] [address] 52051- 5549 Mar, [facility] [id number] [place] [address] 37473- 9536 Mar, [facility] [id number] [place] [address] 31437- 3974 Mar, [facility] [id number] [place] [address] 31476- 9392 Mar, [facility] [id number] [place] [address] 99857- 2534 Mar, Dental examination Z01.20 [facility] [id number] [place] [address] 41076- 6775 Feb, [facility] [id number] [place] [address] 85126- 2175 Feb, [facility] [id number] [place] [address] 98732- 0381 Feb, Back pain M54.9 [facility] [id number] [place] [address] 52644- 4621 Jan, [facility] [id number] [place] [address] 34242- 4492 Jan, [facility] [id number] [place] [address] 58955- 2772 Dec, Diabetes E11.9 ; GERD (gastroesophageal reflux disease) K21.9 ; ED (erectile dysfunction) N52.9 ; HTN (hypertension) I10 ; Insomnia G47.00 ; COPD (chronic obstructive pulmonary disease) J44.9 ; Neuropathy G62.9 and Bipolar depression F31.30 [facility] [address] [address]- 6438 Dec, Type 2 diabetes mellitus with other diabetic neurological complication E11.49 and Onychomycosis B35.1 [facility] [address] [address]- 8797 Dec, [facility] [id number] [place] [address] 16280- 9216 Dec, [facility] [id number] [address]- 2495 Dec, [facility] [id number] [place] [address] 42772- 2477 Dec, [facility] [id number] [place] [address] 49998- 2168 Nov, [facility] [id number] [place] [address] 42585- 9282 Nov, [facility] [id number] [place] [address] 01879- 3380 Oct, [facility] [address] [address]- 7512 Oct, [facility] [id number] [place] [address] 61961- 8864 Oct, Back pain M54.9 [facility] [id number] [place] [address] 71244- 2414 Oct, [facility] [id number] [place] [address] 03448- 8410 Oct, [facility] [address] [address]- 8180 Oct, [facility] [id number] [place] [address] 05130- 4868 Oct, HTN (hypertension) I10 [facility] [address] [address]- 6635 Oct, Back pain M54.9 [facility] [id number] [place] [address] 78185- 7685 Oct, Chronic pain syndrome G89.4 [facility] [id number] [place] [address] 51641- 6639 September, Back pain M54.9 [facility] [id number] [place] [address] 27339- 7246 September, HTN (hypertension) I10 [facility] [id number] [place] [address] 70235- 0807 Aug, Porokeratosis Q82.8 ; Onychomycosis B35.1 and Type 2 diabetes mellitus with other diabetic neurological complication E11.49 [facility] [id number] [place] [address] 26377- 3975 Aug, GERD (gastroesophageal reflux disease) K21.9 ; Diabetes E11.9 ; HTN (hypertension) I10 ; Insomnia G47.00 ; Restless legs syndrome G25.81 ; COPD (chronic obstructive pulmonary disease) J44.9 ; Back pain M54.9 and Bipolar 1 disorder F31.9 [facility] [id number] [place] [address] 24754- 5094 Aug, [facility] [id number] [place] [address] 98159- 1918 Aug, [facility] [id number] [place] [address] 88706- 6970 Aug, [facility] [id number] [place] [address] 55489- 1869 Aug, [facility] [id number] [place] [address] 89191- 3796 Jul, [facility] [id number] [place] [address] 00565- 9657 Jul, [facility] [id number] [place] [address] 15415- 2427 Jul, [facility] [id number] [place] [address] 60622- 3526 16 Jul, 2015 [facility] [address] [address]- 0292 Jul, [facility] [id number] [place] [address] 44101- 8707 Jul, [facility] [id number] [place] [address] 20715- 9260 Jun, Decubital ulcer L89.90 ; Diabetes E11.9 ; Back pain M54.9 ; HTN (hypertension) I10 and COPD (chronic obstructive pulmonary disease) J44.9 [facility] [address] [place] [address] 51863- 0281 Jun, [facility] [id number] [place] [address] 16395- 5086 Jun, [facility] [id number] [place] [address] 11347- 3394 Jun, [facility] [address] [address]- 4400 Jun, [facility] [address] [place] [address] 74773- 5062 Jun, Diabetes E11.9 ; Insomnia G47.00 ; Decubital ulcer L89.90 ; GERD (gastroesophageal reflux disease) K21.9 ; Back pain M54.9 ; Superficial fungus infection of skin B36.9 and HTN (hypertension) I10 [place] [address] [facility] [id number] [id number] Jun, Dental examination Z01.20 [facility] [address] [address]- 7601 May, [facility] [address] [address]- 0299 May, [facility] [id number] [address]- 3035 May, [place] [id number] [place] [address] 97264- 0060 May, Diabetes E11.9 ; HTN (hypertension) I10 and Decubital ulcer L89.90 [place] [id number] [place] [address] 42860- 9045 May, HTN (hypertension) I10 ; Decubital ulcer L89.90 and Diabetes E11.9 [place] [address] 41212- 0956 Apr, Diabetes E11.9 ; GERD (gastroesophageal reflux disease) K21.9 ; Back pain M54.9 ; HTN (hypertension) I10 ; Restless legs syndrome G25.81 and Decubital ulcer L89.90 [place] [id number] [place] [address] 07643- 3454 Apr, [place] [address] 33473- 1797 Apr, Diabetes E11.9 ; HTN (hypertension) I10 ; Restless legs syndrome G25.81 ; GERD (gastroesophageal reflux disease) K21.9 and COPD ( chronic obstructive pulmonary disease) J44.9 [place] [id number] [place] [address] 32218- 4577 Mar, [place] [id number] [place] [address] 02561- 0558 Mar, [place] [id number] [place] [address] 59816- 2659 Mar, Diabetes E11.9 ; Abscess L02.91 and Restless legs syndrome G25.81 [place] [address] 93427- 0203 Mar, [place] [id number] [place] [address] 52369- 3125 Feb, GERD (gastroesophageal reflux disease) K21.9 ; Back pain M54.9 ; ED (erectile dysfunction) N52.9 ; Diabetes E11.9 ; HTN (hypertension) I10 and Insomnia G47.00 [place] [id number] [place] [address] 95837- 4216 Feb, [facility] [id number] [place] [address] 65587- 3226 Feb, [place] [id number] [place] [address] 68203- 1145 Jan, [place] [address] 81578- 3399 Jan, Diabetes 250.00 ; Nondependent cannabis abuse, continuous 305.21 ; Cough 786.2 ; Schizoaffective disorder, unspecified 295.70 ; Sciatica 724.3 ; Other, mixed, or unspecified nondependent drug abuse, unspecified 305.90 ; Chronic pain 338.29 ; GERD (gastroesophageal reflux disease) 530.81 and HTN (hypertension) 401.9 [address] [id number] [place] [address] 17994- 4383 Jan, [place] [id number] [place] [address] 83273- 1693 Jan, [place] [id number] [place] [address] 05069- 2581 Jan, Chronic pain associated with significant psychosocial dysfunction 338.4 ; Diabetes mellitus without mention of complication, type I [ juvenile type], uncontrolled 250.03 ; Benign essential hypertension 401.1 ; Schizoaffective disorder, unspecified 295.70 ; Wheezing 786.07 ; Ear ache 388.70 ; Cough 786.2 ; Sciatica 724.3 and Foot pain, bilateral 729.5 [place] [id number] [place] [address] 57309- 1715 Dec, [place] [id number] [place] [address] 49348- 6103 Dec, [place] [id number] [place] [address] 84027- 6021 Dec, [place] [address] [address]- 9991 Dec, [facility] [address] [address]- 6389 Dec, [facility] [address] [address]- 6495 Nov, Elevated liver enzymes 790.5 [facility] [address] [address]- 7668 Nov, [facility] [address] [address]- 4818 Nov, [facility] [address] [address]- 3235 Nov, [facility] [address] [address]- 4878 Nov, Benign essential hypertension 401.1 ; Diabetes mellitus without mention of complication, type I [juvenile type], uncontrolled 250.03 and Nondependent cannabis abuse, continuous 305.21 [facility] [address] [address]- 2165 Oct, Cellulitis 682.9 and Benign essential hypertension 401.1 [facility] [address] [address]- 2708 Oct, [facility] [id number] [address] September, [facility] [id number] [address] September, [facility] [id number] [address] Aug, [facility] [id number] [address] Aug, [facility] [id number] [address] Aug, [facility] [place] [facility] [address] [id number] [place] [address] Aug, [facility] [place] [facility] [address] [id number] [place] [address] Jul, [facility] [place] [facility] [address] [id number] [place] [address] Jul, [facility] [place] [facility] [address] [id number] [place] [address] Jul, [facility] [place] [facility] [address] [id number] [place] [address] Jul, [facility] [place] [facility] [address] [id number] [place] [address] Jul, [facility] [place] [facility] [address] [id number] [place] [address] Jul, [facility] [place] [facility] [address] [id number] [place] [address] Jun, [facility] [place] [facility] [address] [id number] [place] [address] Jun, [facility] [place] [facility] [address] [id number] [place] [address] Jun, [facility] [place] [facility] [address] [id number] [place] [address] Jun, [facility] [place] [facility] [address] [id number] [place] [address] Jun, [facility] [place] [facility] [address] [id number] [place] [address] May, [facility] [place] [facility] [address] [id number] [place] [address] May, [facility] [place] [facility] [address] [id number] [place] [address] May, [facility] [place] [facility] [address] [id number] [place] [address] May, [facility] [place] [facility] [address] [id number] [place] [address] May, [facility] [place] [facility] [address] [id number] [place] [address] May, [facility] [place] [facility] [address] [id number] [place] [address] May, [facility] [place] [facility] [address] [id number] [place] [address] May, [facility] [place] [facility] [address] [id number] [place] [address] Apr, [facility] [place] [facility] [address] [id number] [place] [address] Apr, [facility] [place] [facility] [address] [id number] [place] [address] Apr, [facility] [place] [facility] [address] [id number] [place] [address] Apr, [facility] [place] [facility] [address] [address] [id number] [place] [address] Mar, [facility] [place] [facility] [address] [facility] [id number] [place] [address] Mar, [facility] [place] [facility] [address] [id number] [place] [address] Mar, [facility] [place] [facility] [address] [id number] [place] [address] Mar, [facility] [place] [facility] [address] [id number] [place] [address] Feb, [facility] [place] [facility] [address] [id number] [place] [address] Feb, [facility] [place] [facility] [address] [id number] [place] [address] Feb, [facility] [place] [facility] [address] [id number] [place] [address] Feb, [facility] [place] [facility] [address] [id number] [place] [address] Feb, [facility] [place] [facility] [address] [id number] [place] [address] Feb, [facility] [place] [facility] [address] [id number] [place] [address] Jan, [facility] [place] [facility] [address] [id number] [place] [address] Jan, [facility] [place] [facility] [address] [id number] [place] [address] Jan, [facility] [place] [facility] [address] [id number] [place] [address] Jan, [facility] [place] [facility] [address] [id number] [place] [address] Dec, [facility] [place] [facility] [address] [id number] [place] [address] Dec, [facility] [place] [facility] [address] [id number] [place] [address] Dec, [facility] [place] [facility] [address] [id number] [place] [address] Dec, [facility] [place] [facility] [address] [id number] [place] [address] Dec, [facility] [place] [facility] [address] [id number] [place] [address] Dec, [facility] [place] [facility] [address] [id number] [place] [address] Oct, [facility] [place] [facility] [address] [id number] [place] [address] Oct, [facility] [place] [facility] [address] [id number] [place] [address] September, [facility] [place] [facility] [address] [id number] [place] [address] September, [facility] [place] [facility] [address] [id number] [place] [address] September, [facility] [place] [facility] [address] [id number] [place] [address] September, [facility] [place] [facility] [address] [id number] [place] [address] September, [facility] [place] [facility] [address] [id number] [place] [address] September, [facility] [place] [facility] [address] [id number] [place] [address] Aug, [facility] [place] [facility] [address] [id number] [place] [address] Aug, [facility] [place] [facility] [address] [id number] [place] [address] Aug, [facility] [place] [facility] [address] [id number] [place] [address] Aug, [facility] [place] [facility] [address] [id number] [place] [address] Jul, [facility] [place] [facility] [address] [id number] [place] [address] Jul, [facility] [place] [facility] [address] [id number] [place] [address] Jun, [facility] [place] [facility] [address] [id number] [place] [address] Jun, [facility] [place] [facility] [address] [id number] [place] [address] May, [facility] [place] [facility] [address] [id number] [place] [address] May, [facility] [place] [facility] [address] [id number] [place] [address] Jan, [facility] [address] [id number] [place] [address] Dec, [facility] [address] [id number] [place] [address] Jun, [facility] [address] [id number] [place] [address] May, [facility] [address] [id number] [place] [address] Nov, [facility] [address] [id number] [place] [address] September, [facility] [address] [id number] [place] [address] Aug, [facility] [address] [id number] [place] [address] Aug, [facility] [address] [id number] [place] [address] Aug, [facility] [address] [id number] [place] [address] Aug, [facility] [address] [id number] [place] [address] Nov, [facility] [address] [id number] [place] [address] Oct, [facility] [address] [id number] [place] [address] Jul, [facility] [place] [facility] [address] [id number] [place] [address] Feb, [facility] [address] [id number] [place] [address] Feb, [facility] [address] [id number] [place] [address] Apr, [facility] [address] [facility] [id number] [address] Apr, [facility] [address] [facility] [id number] [place] [address] Feb, [facility] [address] [facility] [id number] [place] [address] Feb, [facility] [address] [facility] [id number] [place] [address] Jul, IMMUNIZATIONS No Known Immunizations SOCIAL HISTORY Never Assessed REASON FOR VISIT 3 mo f/u (rescheduled from September) Consult Dr. Hawthorne;Jaquelin RT(R) PLAN OF CARE Activity Details Follow Up 2 Weeks Reason: VITAL SIGNS MEDICATIONS Unknown Medications RESULTS No Results PROCEDURES Procedure Date Ordered Result Body Site DEBRIDE SKIN/TISSUE July 17, 2017 [facility] VISIT ESTABLISHED PATIENT July 17, 2017 INSTRUCTIONS MEDICATIONS ADMINISTERED No Known Medications [...]
--- OUTSIDE RECORDS SUMMARY | 2018-09-15 22:47 | XMS REPORT ---
Author Author YVES BLEVINS [facility] Address [address] [place] [address] Care Team Providers Care Vice President Business & Corporate Development Name Role Phone YVES BLEVINS Unavailable PROBLEMS Type Condition ICD9-CM Code KGF22-LD Code Onset Dates Condition Status SNOMED Code Problem HTN (hypertension) I10 Active 98366339 Problem Restless legs syndrome G25.81 Active 615942774 Problem GERD (gastroesophageal reflux disease) K21.9 Active 476648356 Problem ED (erectile dysfunction) N52.9 Active 926508720 Problem PAD (peripheral artery disease) I73.9 Active 335046903 Problem Ulcer of right foot, unspecified ulcer stage L97.519 Active 29677986 Problem 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 548787076 Problem COPD (chronic obstructive pulmonary disease) J44.9 Active 74534756 Problem DM neuro manif type II E11.49 Active 02680694 Problem Sinusitis, unspecified chronicity, unspecified location J32.9 Active [id number] ALLERGIES No Information ENCOUNTERS Encounter Location Date Diagnosis [facility] [id number] [place] [address] 13358- 8869 Nov, [facility] [id number] [place] [address] 18506- 9008 Nov, [facility] [id number] [place] [address] 76927- 2819 Nov, [facility] [id number] [place] [address] 80113- 4128 Nov, Back pain M54.9 [facility] [id number] [place] [address] 26275- 6447 Nov, Shortness of breath R06.02 [facility] [id number] [place] [address] 56379- 0923 Nov, [facility] [id number] [place] [place] [address]- 5271 Oct, [facility] [id number] [address] 6213 Oct, [facility] [id number] [place] [place] [address]- 1293 Oct, [facility] [id number] [place] [address] 63637- 8181 Oct, [facility] [id number] [address]- 3368 Oct, [facility] [id number] [place] [address] 61256- 9115 Oct, Back pain M54.9 [facility] [id number] [place] [address] 71810- 4164 Oct, Back pain M54.9 [facility] [id number] [address]- 6848 Oct, [facility] [id number] [place] [address] 30449- 6432 September, [facility] [id number] [address]- 5895 September, [facility] [id number] [address]- 3518 September, [facility] [id number] [address]- 2195 September, Type 2 diabetes mellitus with other diabetic neurological complication E11.49 and Hypotension, unspecified hypotension type I95.9 [facility] [id number] [address]- 9589 September, [facility] [id number] [address]- 7607 September, [facility] [id number] [place] [address] 44095- 9309 September, Back pain M54.9 [facility] [id number] [place] [address] 31535- 8454 Aug, [facility] [id number] [place] [address] 62279- 4529 Aug, Acute cystitis with hematuria N30.01 ; Ulcer of right foot, unspecified ulcer stage L97.519 ; HTN (hypertension) I10 ; COPD (chronic obstructive pulmonary disease) J44.9 and DM neuro manif type II E11.49 [facility] [id number] [place] [address] 40724- 3787 Aug, Back pain M54.9 [facility] [id number] [place] [address] 27098- 8285 Jul, [facility] [id number] [place] [address] 34913- 4083 Jul, Back pain M54.9 [facility] [id number] [place] [address] 26248- 1124 Jul, [facility] [id number] [place] [address] 76862- 6953 Jul, DM neuro manif type II E11.49 and Ulcer of right foot, unspecified ulcer stage L97.519 [facility] [id number] [place] [address] 28306- 0649 Jun, [facility] [id number] [place] [address] 29777- 4681 Jun, [facility] [id number] [place] [address] 64254- 9491 May, Type 2 diabetes mellitus with other diabetic neurological complication E11.49 ; GERD (gastroesophageal reflux disease) K21.9 and PAD ( peripheral artery disease) I73.9 [facility] [id number] [place] [address] 70963- 8903 17 Dennis, 2018 Decubital ulcer L89.90 ; Diabetes E11.9 and GERD ( gastroesophageal reflux disease) K21.9 [facility] [id number] [place] [address] 47673- 6320 May, [facility] [id number] [place] [address] 56125- 0756 Apr, [facility] [address] 36508- 3823 Mar, [facility] [id number] [place] [address] 43394- 9089 Mar, [facility] [address] 94806- 6739 Feb, [facility] [address] 68461- 8316 Feb, [facility] [address] 27196- 6524 Jan, [facility] [id number] [place] [address] 13771- 9919 Jan, HTN (hypertension) I10 [facility] [id number] [place] [address] 36603- 2493 Jan, [facility] [id number] [place] [address] 00881- 0842 Dec, Back pain M54.9 [facility] [id number] [place] [address] 36515- 2799 Dec, Back pain M54.9 [facility] [id number] [place] [address] 72798 -4344 Dec, Encounter for immunization Z23 and Puncture wound of right foot, initial encounter S91.331A [facility] [id number] [place] [address] 54855- 4625 Dec, [facility] [id number] [place] [address] 03246- 1344 Nov, [facility] [address] [address]- 8705 Nov, COPD (chronic obstructive pulmonary disease) J44.9 [facility] [address] [address]- 4656 Nov, [facility] [id number] [place] [address] 87690- 5267 Oct, [facility] [id number] [place] [address] 44974- 6478 Oct, [facility] [id number] [place] [address] 01032- 9556 September, Onychomycosis B35.1 and DM neuro manif type II E11.49 [facility] [id number] [place] [address] 40294- 3335 September, [facility] [id number] [place] [address] 29033- 9247 Aug, [facility] [id number] [place] [address] 45011- 3431 Jul, Sinusitis, unspecified chronicity, unspecified location J32.9 and Cough R05 [facility] [id number] [address]- 0601 Jul, Back pain M54.9 [facility] [id number] [address]- 2848 14 Jun, 2016 Back pain M54.9 [facility] [id number] [address]- 4893 Jun, COPD (chronic obstructive pulmonary disease) J44.9 [facility] [id number] [address]- 3718 May, [facility] [id number] [address]- 7990 May, [facility] [id number] [address]- 7370 May, Back pain M54.9 [facility] [id number] [place] [address] 39414- 3412 16 May, 2016 [facility] [id number] [place] [address] 04074- 0803 May, [facility] [id number] [place] [address] 55366- 3405 May, Diabetes E11.9 [facility] [id number] [place] [address] 60987- 6551 11 May, 2016 Diabetes E11.9 ; GERD [...] hepatitis C screening test Z11.59 [facility] [id number] [place] [address] 40180- 1361 May, HTN (hypertension) I10 [facility] [id number] [address]- 2281 Apr, [facility] [id number] [address]- 8097 Apr, [facility] [id number] [address]- 6052 Apr, [facility] [id number] [place] [address] 32691- 8690 Apr, [facility] [id number] [address]- 2843 Apr, [facility] [id number] [place] [address] 18149- 1194 Mar, [facility] [id number] [place] [address] 03408- 3019 Mar, [facility] [id number] [place] [address] 55810- 2936 Mar, [facility] [id number] [place] [address] 14788- 0387 Mar, [facility] [address] 24778- 4977 Mar, Dental examination Z01.20 [facility] [id number] [place] [address] 32473- 5199 Feb, [facility] [id number] [place] [address] 44753- 4430 Feb, [facility] [address] 47109- 6801 Feb, Back pain M54.9 [facility] [id number] [place] [address] 03260- 5513 Jan, [facility] [id number] [place] [address] 49472- 8385 Jan, [facility] [id number] [place] [address] 58863- 3108 Dec, Diabetes E11.9 ; GERD (gastroesophageal reflux disease) K21.9 ; ED (erectile dysfunction) N52.9 ; HTN (hypertension) I10 ; Insomnia G47.00 ; COPD (chronic obstructive pulmonary disease) J44.9 ; Neuropathy G62.9 and Bipolar depression F31.30 [facility] [id number] [place] [address] 40161- 1910 Dec, Type 2 diabetes mellitus with other diabetic neurological complication E11.49 and Onychomycosis B35.1 [facility] [id number] [place] [address] 58757- 7113 Dec, [facility] [address] [place] [address]- 7453 Dec, [facility] [address] [facility] [id number] [place] [address]- 6802 Dec, [facility] [address] [facility] [id number] [place] [address]- 2415 Dec, [facility] [address] [facility] [id number] [address]- 2350 Nov, [facility] [address] [facility] [id number] [place] [address]- 1046 Nov, [facility] [address] [facility] [id number] [place] [address], [place] [address]- 5412 Oct, [facility] [address] [facility] [id number] [place] [address]- 4601 Oct, [facility] [id number] [place] [place] [address]- 1005 Oct, Back pain M54.9 [facility] [address] [facility] [id number] [place] [address]- 3272 Oct, [facility] [id number] [address]- 3263 Oct, [facility] [address] [id number] [address]- 4012 Oct, [facility] [id number] [address]- 7539 Oct, HTN (hypertension) I10 [facility] [address] [facility] [id number] [place] [address]- 0956 Oct, Back pain M54.9 [facility] [id number] [address]- 8111 Oct, Chronic pain syndrome G89.4 [facility] [id number] [address]- 0811 September, Back pain M54.9 [facility] [id number] [place] [address] 30079- 4825 September, HTN (hypertension) I10 [facility] [id number] [place] [address] 87363- 0906 Aug, Porokeratosis Q82.8 ; Onychomycosis B35.1 and Type 2 diabetes mellitus with other diabetic neurological complication E11.49 [facility] [id number] [place] [address] 33845- 4544 Aug, GERD (gastroesophageal reflux disease) K21.9 ; Diabetes E11.9 ; HTN (hypertension) I10 ; Insomnia G47.00 ; Restless legs syndrome G25.81 ; COPD (chronic obstructive pulmonary disease) J44.9 ; Back pain M54.9 and Bipolar 1 disorder F31.9 [facility] [id number] [place] [address] 73411- 8101 Aug, [facility] [id number] [place] [address] 03273- 2978 Aug, [facility] [id number] [place] [address] 52361- 6644 Aug, [facility] [id number] [place] [address] 13631- 1354 Aug, [facility] [id number] [address]- 8344 31 Jul, 2015 [facility] [id number] [place] [address] 42579- 0926 31 Jul, 2015 [facility] [id number] [place] [address] 66874- 0129 30 Jul, 2015 [facility] [id number] [place] [address] 28513733- 3921 16 Jul, 2015 [facility] [id number] [place] [address] 58992- 8994 15 Jul, 2015 [facility] [id number] [place] [address] 13802- 1345 Jul, [facility] [address] [address]- 0180 Jun, Decubital ulcer L89.90 ; Diabetes E11.9 ; Back pain M54.9 ; HTN (hypertension) I10 and COPD (chronic obstructive pulmonary disease) J44.9 [facility] [id number] [place] [address] 06644- 7466 Jun, [facility] [id number] [place] [address] 44552- 5610 Jun, [facility] [id number] [place] [address] 14930- 0747 Jun, [facility] [id number] [place] [address] 72622- 3344 Jun, [facility] [id number] [place] [address] 21496- 7934 Jun, Diabetes E11.9 ; Insomnia G47.00 ; Decubital ulcer L89.90 ; GERD (gastroesophageal reflux disease) K21.9 ; Back pain M54.9 ; Superficial fungus infection of skin B36.9 and HTN (hypertension) I10 [address] [id number] Jun, Dental examination Z01.20 [facility] [address] [address]- 8648 May, [facility] [id number] [place] [address] 68146- 3292 May, [facility] [id number] [place] [address] 51891- 3549 May, [facility] [address] [address]- 9185 May, Diabetes E11.9 ; HTN (hypertension) I10 and Decubital ulcer L89.90 [facility] [id number] [place] [address] 20369- 8774 May, HTN (hypertension) I10 ; Decubital ulcer L89.90 and Diabetes E11.9 [facility] [id number] [place] [address] 96574- 7782 Apr, Diabetes E11.9 ; GERD (gastroesophageal reflux disease) K21.9 ; Back pain M54.9 ; HTN (hypertension) I10 ; Restless legs syndrome G25.81 and Decubital ulcer L89.90 [facility] [id number] [place] [address] 02406- 6451 Apr, [facility] [address] 64644- 2602 Apr, Diabetes E11.9 ; HTN (hypertension) I10 ; Restless legs syndrome G25.81 ; GERD (gastroesophageal reflux disease) K21.9 and COPD ( chronic obstructive pulmonary disease) J44.9 [facility] [id number] [place] [address] 56870- 7557 Mar, [facility] [address] 60312- 8228 Mar, [facility] [address] 23412- 8231 Mar, Diabetes E11.9 ; Abscess L02.91 and Restless legs syndrome G25.81 [facility] [id number] [place] [address] 50205- 4191 Mar, [facility] [id number] [place] [address] 86145- 0806 Feb, GERD (gastroesophageal reflux disease) K21.9 ; Back pain M54.9 ; ED (erectile dysfunction) N52.9 ; Diabetes E11.9 ; HTN (hypertension) I10 and Insomnia G47.00 [facility] [id number] [place] [address] 05430- 0339 Feb, [facility] [address] [place] [address]- 7970 Feb, [facility] [id number] [place] [address] 81257- 6647 Jan, [facility] [id number] [place] [address] 01945- 7171 Jan, Diabetes 250.00 ; Nondependent cannabis abuse, continuous 305.21 ; Cough 786.2 ; Schizoaffective disorder, unspecified 295.70 ; Sciatica 724.3 ; Other, mixed, or unspecified nondependent drug abuse, unspecified 305.90 ; Chronic pain 338.29 ; GERD (gastroesophageal reflux disease) 530.81 and HTN (hypertension) 401.9 [facility] [address] 94006- 4662 Jan, [facility] [address] 54367- 2818 Jan, [facility] [address] 03087- 7009 Jan, Chronic pain associated with significant psychosocial dysfunction 338.4 ; Diabetes mellitus without mention of complication, type I [ juvenile type], uncontrolled 250.03 ; Benign essential hypertension 401.1 ; Schizoaffective disorder, unspecified 295.70 ; Wheezing 786.07 ; Ear ache 388.70 ; Cough 786.2 ; Sciatica 724.3 and Foot pain, bilateral 729.5 [facility] [id number] [place] [address] 06667- 5973 Dec, [facility] [id number] [place] [address] 10622- 8565 Dec, [facility] [address] 08961- 4059 Dec, [facility] [id number] [place] [address] 68029- 3101 Dec, [facility] [id number] [place] [address] 93084- 0500 Dec, [facility] [address] [address]- 8287 Nov, Elevated liver enzymes 790.5 [facility] [id number] [place] [address] 61492- 3904 Nov, [facility] [id number] [place] [address] 67593- 5662 Nov, [facility] [id number] [place] [address] 23694- 8262 Nov, [facility] [id number] [place] [address] 30554- 2476 Nov, Benign essential hypertension 401.1 ; Diabetes mellitus without mention of complication, type I [juvenile type], uncontrolled 250.03 and Nondependent cannabis abuse, continuous 305.21 [facility] [id number] [place] [address] 85293- 4499 Oct, Cellulitis 682.9 and Benign essential hypertension 401.1 [facility] [id number] [place] [address] 03374- 1521 Oct, [facility] [id number] [place] [address] 85734- 4769 September, [facility] [id number] [address] September, [facility] [id number] [address] Aug, [facility] [id number] [address] 1544 Aug, [facility] [id number] [place] [address] 06293- 6066 Aug, [facility] [id number] [address] Aug, [facility] [id number] [address] Jul, [facility] [place] [facility] [address] [id number] [place] [address] 4655 Jul, [facility] [place] [facility] [address] [id number] [place] [address]- 0603 Jul, [facility] [place] [facility] [address] [id number] [place] [address]- 8088 Jul, [facility] [place] [facility] [address] [id number] [place] [address]- 6506 Jul, [facility] [place] [facility] [address] [id number] [place] [address]- 3465 Jul, [facility] [place] [facility] [address] [id number] [place] [address]- 4233 Jun, [facility] [place] [facility] [address] [id number] [place] [address]- 5130 Jun, [facility] [place] [facility] [address] [id number] [place] [address]- 5047 Jun, [facility] [place] [facility] [address] [id number] [place] [address] 1998 Jun, [facility] [place] [facility] [address] [id number] [place] [address]- 0416 Jun, [facility] [place] [facility] [address] [id number] [place] [address]- 4640 May, [facility] [place] [facility] [address] [id number] [place] [address]- 6534 May, [facility] [place] [facility] [address] [id number] [place] [address]- 2857 May, [facility] [place] [facility] [address] [id number] [place] [address]- 5627 May, [facility] [place] [facility] [address] [id number] [place] [address]- 3622 May, [facility] [place] [facility] [address] [id number] [place] [address]- 3650 May, [facility] [address] [id number] [place] [address]- 0184 May, [facility] [place] [facility] [address] [id number] [place] [address]- 2596 May, [facility] [place] [facility] [address] [id number] [place] [address]- 1086 Apr, [facility] [place] [facility] [address] [id number] [place] [address]- 2185 Apr, [facility] [place] [facility] [address] [id number] [place] [address]- 2631 Apr, [facility] [place] [facility] [address] [id number] [place] [address]- 3994 Apr, [facility] [place] [facility] [address] [id number] [place] [address]- 4670 Mar, [facility] [place] [facility] [address] [id number] [place] [address]- 5168 Mar, [facility] [place] [facility] [address] [id number] [place] [address]- 2396 Mar, [facility] [place] [facility] [address] [id number] [place] [address]- 3609 Mar, [facility] [place] [facility] [address] [id number] [place] [address]- 4121 Feb, [facility] [place] [facility] [address] [id number] [place] [address]- 5504 Feb, [facility] [place] [facility] [address] [id number] [place] [address] Feb, [facility] [place] [facility] [address] [id number] [place] [address] Feb, [facility] [place] [facility] [address] [id number] [place] [address] Feb, [facility] [place] [facility] [address] [id number] [place] [address] Feb, [facility] [place] [facility] [address] [id number] [place] [address] Jan, [facility] [place] [facility] [address] [id number] [place] [address] Jan, [facility] [place] [facility] [address] [id number] [place] [address] Jan, [facility] [place] [facility] [address] [id number] [place] [address] Jan, [facility] [place] [facility] [address] [id number] [place] [address] Dec, [facility] [place] [facility] [address] [id number] [place] [address] Dec, [facility] [place] [facility] [address] [id number] [place] [address] Dec, [facility] [place] [facility] [address] [id number] [place] [address] Dec, [facility] [place] [facility] [address] [id number] [place] [address] Dec, [facility] [place] [facility] [address] [id number] [place] [address] Dec, [facility] [place] [facility] [address] [id number] [place] [address] Oct, [facility] [place] [facility] [address] [id number] [place] [address] Oct, [facility] [place] [facility] [address] [id number] [place] [address] September, [facility] [place] [facility] [address] [id number] [place] [address] September, [facility] [place] [facility] [address] [id number] [place] [address] September, [facility] [address] [id number] [place] [address] September, [facility] [place] [facility] [address] [id number] [place] [address] September, [facility] [place] [facility] [address] [id number] [place] [address] September, [facility] [place] [facility] [address] [id number] [place] [address] Aug, [facility] [place] [facility] [address] [id number] [place] [address] Aug, [facility] [place] [facility] [address] [id number] [place] [address] Aug, [facility] [place] [facility] [address] [id number] [place] [address] Aug, [facility] [place] [facility] [address] [id number] [place] [address] Jul, [facility] [place] [facility] [address] [id number] [place] [address] Jul, [facility] [place] [facility] [address] [id number] [place] [address] Jun, [facility] [place] [facility] [address] [id number] [place] [address] Jun, [facility] [place] [facility] [address] [id number] [place] [address] May, [facility] [place] [facility] [address] [id number] [place] [address] May, [facility] [place] [facility] [address] [id number] [place] [address] Jan, [facility] [place] [facility] [address] [id number] [place] [address] Dec, [facility] [place] [facility] [address] [id number] [place] [address] Jun, [facility] [place] [facility] [address] [id number] [place] [address] 100[address] May, [facility] [place] [facility] [address] [id number] [place] [address] Nov, [facility] [place] [facility] [address] [id number] [place] [address] September, [facility] [place] [facility] [address] [id number] [place] [address] Aug, [facility] [place] [facility] [address] [id number] [place] [address] Aug, [facility] [place] [facility] [address] [id number] [place] [address] Aug, [facility] [place] [facility] [address] [id number] [place] [address] Aug, [facility] [address] [id number] [place] [address] Nov, [facility] [place] [facility] [address] [id number] [place] [address] Oct, [facility] [place] [facility] [address] [id number] [place] [address] Jul, [facility] [place] [facility] [address] [id number] [place] [address] Feb, [facility] [place] [facility] [address] [id number] [place] [address] Feb, [facility] [place] [facility] [address] [id number] [place] [address] Apr, [facility] [place] [facility] [address] [id number] [place] [address] Apr, [facility] [place] [facility] [address] [id number] [place] [address] Feb, [facility] [address] [facility] [id number] [place] [address] Feb, [facility] [address] [facility] [id number] [place] [address] Jul, IMMUNIZATIONS No Known Immunizations SOCIAL HISTORY Never Assessed REASON FOR VISIT Hydrocodone and Lyrica. 07/24 PLAN OF CARE VITAL SIGNS MEDICATIONS Medication Instructions Dosage Frequency Start Date End Date Duration Status Lyrica 150 MG Orally Twice a day 1 capsule 12h 28 days Active Hydrocodone-Ibuprofen 7.5-200 MG Orally 3 times a day 1 tablet as needed 8h 16 Jul, 2017 28 days Active RESULTS No Results [...]
--- OUTSIDE RECORDS SUMMARY | 2018-09-15 22:48 | XMS REPORT ---
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 Layer Apprentice Name Role Phone YVES BLEVINS Unavailable PROBLEMS Type Condition ICD9-CM Code DKK26-QG Code Onset Dates Condition Status SNOMED Code Problem HTN (hypertension) I10 Active 11832459 Problem Restless legs syndrome G25.81 Active 341572354 Problem GERD (gastroesophageal reflux disease) K21.9 Active 191343907 Problem ED (erectile dysfunction) N52.9 Active 470725147 Problem PAD (peripheral artery disease) I73.9 Active 574121593 Problem Ulcer of right foot, unspecified ulcer stage L97.519 Active 08338997 Problem 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 962538156 Problem COPD (chronic obstructive pulmonary disease) J44.9 Active 79450078 Problem DM neuro manif type II E11.49 Active 12629428 Problem Sinusitis, unspecified chronicity, unspecified location J32.9 Active [id number] ALLERGIES No Information ENCOUNTERS Encounter Location Date Diagnosis [facility] [id number] [place] [address] 67049- 6469 Nov, [facility] [id number] [place] [address] 24512- 9686 Nov, [facility] [id number] [place] [address] 85839- 4992 Nov, [facility] [id number] [place] [address] 17981- 4279 Nov, Back pain M54.9 [facility] [id number] [place] [address] 11110- 3360 Nov, Shortness of breath R06.02 [facility] [id number] [place] [address] 12258- 3492 Nov, [facility] [id number] [place] [address]- 4700 Oct, [facility] [address], [place] [address]- 8331 Oct, [facility] [address] [place] [address]- 2420 Oct, [facility] [id number] [place] [address] 70814- 7265 Oct, [facility] [address] [id number], [place] [address]- 3583 Oct, [facility] [id number] [place] [address] 52529- 8944 Oct, Back pain M54.9 [facility] [id number] [place] [address] 82641- 6665 Oct, Back pain M54.9 [facility] [address], [place] [address]- 4609 Oct, [facility] [id number] [place] [address] 92937- 1082 September, [facility] [address], [place] [address]- 8270 September, [facility] [address], [place] [address]- 8846 September, [facility] [address], [place] [address]- 9425 September, Type 2 diabetes mellitus with other diabetic neurological complication E11.49 and Hypotension, unspecified hypotension type I95.9 [facility] [address], [place] [address]- 3829 September, [facility] [address], [place] [address]- 6964 September, [facility] [id number] [place] [address] 51687- 6580 September, Back pain M54.9 [facility] [id number] [place] [address] 76635- 7004 Aug, [facility] [id number] [place] [address] 77060- 2449 Aug, Acute cystitis with hematuria N30.01 ; Ulcer of right foot, unspecified ulcer stage L97.519 ; HTN (hypertension) I10 ; COPD (chronic obstructive pulmonary disease) J44.9 and DM neuro manif type II E11.49 [facility] [id number] [place] [address] 48259- 8688 Aug, Back pain M54.9 [facility] [id number] [place] [address] 29785- 7774 Jul, [facility] [id number] [place] [address] 31562- 3809 Jul, Back pain M54.9 [facility] [id number] [place] [address] 60525- 8130 Jul, [facility] [id number] [place] [address] 26177- 6134 Jul, DM neuro manif type II E11.49 and Ulcer of right foot, unspecified ulcer stage L97.519 [facility] [id number] [place] [address] 15498- 5103 Jun, [facility] [id number] [place] [address] 59725- 1253 Jun, [facility] [id number] [place] [address] 37265- 1496 May, Type 2 diabetes mellitus with other diabetic neurological complication E11.49 ; GERD (gastroesophageal reflux disease) K21.9 and PAD ( peripheral artery disease) I73.9 [facility] [id number] [place] [address] 76459- 2495 17 Dennis, 2018 Decubital ulcer L89.90 ; Diabetes E11.9 and GERD ( gastroesophageal reflux disease) K21.9 [facility] [id number] [place] [address] 75951- 1196 May, [facility] [id number] [place] [address] 31501- 0469 Apr, [facility] [address] 59667- 6425 Mar, [facility] [id number] [place] [address] 03025- 9517 Mar, [facility] [address] 16882- 7302 Feb, [facility] [address] 88562- 6215 Feb, [facility] [address] 37316- 7991 Jan, [facility] [id number] [place] [address] 83300- 8730 Jan, HTN (hypertension) I10 [facility] [id number] [place] [address] 54431- 5551 Jan, [facility] [id number] [place] [address] 25860- 0554 Dec, Back pain M54.9 [facility] [id number] [place] [address] 06034- 1800 Dec, Back pain M54.9 [facility] [id number] [place] [address] 75751 -8141 Dec, Encounter for immunization Z23 and Puncture wound of right foot, initial encounter S91.331A [facility] [id number] [place] [address] 90044- 6018 Dec, [facility] [id number] [place] [address] 12364- 8497 Nov, [facility] [address], [place] [address]- 9612 Nov, COPD (chronic obstructive pulmonary disease) J44.9 [facility] [address], [place] [address]- 8165 Nov, [facility] [id number] [place] [address] 78045- 7077 Oct, [facility] [id number] [place] [address] 60524- 8035 Oct, [facility] [id number] [place] [address] 38436- 5684 September, Onychomycosis B35.1 and DM neuro manif type II E11.49 [facility] [id number] [place] [address] 78695- 8440 September, [facility] [id number] [place] [address] 52316- 1510 Aug, [facility] [address] [place] [address] 69949- 4362 Jul, Sinusitis, unspecified chronicity, unspecified location J32.9 and Cough R05 [facility] [address], [place] [address]- 3116 Jul, Back pain M54.9 [facility] [address], [place] [address]- 7461 14 Jun, 2016 Back pain M54.9 [facility] [address], [place] [address]- 1581 Jun, COPD (chronic obstructive pulmonary disease) J44.9 [facility] [address], [place] [address]- 2346 May, [facility] [address], [place] [address]- 9316 May, [facility] [address], [place] [address]- 4403 May, Back pain M54.9 [facility] [id number] [place] [address] 08915- 3203 16 May, 2016 [facility] [id number] [place] [address] 29543- 1613 May, [facility] [id number] [place] [address] 92293- 8861 May, Diabetes E11.9 [facility] [id number] [place] [address] 29620- 6855 11 May, 2016 Diabetes E11.9 ; GERD [...] Need for hepatitis C screening test Z11.59 [facility] [id number] [place] [address] 26155- 6975 May, HTN (hypertension) I10 [facility] [address], [place] [address]- 9173 Apr, [facility] [id number] [address]- 9198 Apr, [facility] [address], [place] [address]- 5280 Apr, [facility] [id number] [place] [address] 84069- 4022 Apr, [facility] [address], [place] [address]- 6464 Apr, [facility] [id number] [place] [address] 84580- 8886 Mar, [facility] [id number] [place] [address] 97874- 2942 Mar, [facility] [id number] [place] [address] 08880- 2101 Mar, [facility] [id number] [place] [address] 61756- 7578 Mar, [facility] [address] 31910- 2706 Mar, Dental examination Z01.20 [facility] [id number] [place] [address] 87806- 4590 Feb, [facility] [id number] [place] [address] 57034- 7848 Feb, [facility] [address] 90997- 4106 Feb, Back pain M54.9 [facility] [id number] [place] [address] 36926- 5878 Jan, [facility] [id number] [place] [address] 86265- 3196 Jan, [facility] [id number] [place] [address] 95063- 4770 Dec, Diabetes E11.9 ; GERD (gastroesophageal reflux disease) K21.9 ; ED (erectile dysfunction) N52.9 ; HTN (hypertension) I10 ; Insomnia G47.00 ; COPD (chronic obstructive pulmonary disease) J44.9 ; Neuropathy G62.9 and Bipolar depression F31.30 [facility] [id number] [place] [address] 87132- 9674 Dec, Type 2 diabetes mellitus with other diabetic neurological complication E11.49 and Onychomycosis B35.1 [facility] [id number] [place] [address] 45117- 7821 Dec, [facility] [address] [place] [address]- 0140 Dec, [facility] [address] [facility] [id number] [place] [address]- 8626 Dec, [facility] [address] [facility] [id number] [place] [address]- 6944 Dec, [facility] [address] [facility] [id number] [address]- 3053 Nov, [facility] [address] [facility] [id number] [place] [address]- 6309 Nov, [facility] [address] [facility] [id number] [place] [address], [place] [address]- 3096 Oct, [facility] [address] [facility] [id number] [place] [address]- 7415 Oct, [facility] [address] [place] [address]- 6364 Oct, Back pain M54.9 [facility] [address] [facility] [id number], [place] [address]- 9793 Oct, [facility] [address], [place] [address]- 1892 Oct, [facility] [id number], [place] [address]- 0027 Oct, [facility] [address], [place] [address]- 8610 Oct, HTN (hypertension) I10 [facility] [address] [facility] [id number], [place] [address]- 9840 Oct, Back pain M54.9 [facility] [id number], [place] [address]- 1063 Oct, Chronic pain syndrome G89.4 [facility] [id number], [place] [address]- 0944 September, Back pain M54.9 [facility] [id number] [place] [address] 79245- 7813 September, HTN (hypertension) I10 [facility] [id number] [place] [address] 24209- 8946 Aug, Porokeratosis Q82.8 ; Onychomycosis B35.1 and Type 2 diabetes mellitus with other diabetic neurological complication E11.49 [facility] [id number] [place] [address] 27108- 8023 Aug, GERD (gastroesophageal reflux disease) K21.9 ; Diabetes E11.9 ; HTN (hypertension) I10 ; Insomnia G47.00 ; Restless legs syndrome G25.81 ; COPD (chronic obstructive pulmonary disease) J44.9 ; Back pain M54.9 and Bipolar 1 disorder F31.9 [facility] [id number] [place] [address] 62700- 4764 Aug, [facility] [id number] [place] [address] 71331- 6705 Aug, [facility] [id number] [place] [address] 68090- 4283 Aug, [facility] [id number] [place] [address] 07298- 9358 Aug, [facility] [address], [place] [address]- 5593 31 Jul, 2015 [facility] [id number] [place] [address] 80140- 0659 31 Jul, 2015 [facility] [id number] [place] [address] 13187- 0061 30 Jul, 2015 [facility] [id number] [place] [address] 61516190- 3338 16 Jul, 2015 [facility] [id number] [place] [address] 30915- 6724 15 Jul, 2015 [facility] [id number] [place] [address] 43173- 9651 Jul, [facility] [address], [place] [address]- 4002 Jun, Decubital ulcer L89.90 ; Diabetes E11.9 ; Back pain M54.9 ; HTN (hypertension) I10 and COPD (chronic obstructive pulmonary disease) J44.9 [facility] [id number] [place] [address] 10760- 2417 Jun, [facility] [id number] [place] [address] 15908- 3922 Jun, [facility] [id number] [place] [address] 83198- 4618 Jun, [facility] [id number] [place] [address] 31012- 4533 Jun, [facility] [id number] [place] [address] 02822- 4632 Jun, Diabetes E11.9 ; Insomnia G47.00 ; Decubital ulcer L89.90 ; GERD (gastroesophageal reflux disease) K21.9 ; Back pain M54.9 ; Superficial fungus infection of skin B36.9 and HTN (hypertension) I10 [address] [id number] [id number] Jun, Dental examination Z01.20 [facility] [address], [place] [address]- 1646 May, [facility] [address] [place] [address] 08302- 3331 May, [facility] [id number] [place] [address] 13920- 4899 May, [facility] [address], [place] [address]- 9618 May, Diabetes E11.9 ; HTN (hypertension) I10 and Decubital ulcer L89.90 [facility] [id number] [place] [address] 03645- 7479 May, HTN (hypertension) I10 ; Decubital ulcer L89.90 and Diabetes E11.9 [facility] [id number] [place] [address] 53585- 4790 Apr, Diabetes E11.9 ; GERD (gastroesophageal reflux disease) K21.9 ; Back pain M54.9 ; HTN (hypertension) I10 ; Restless legs syndrome G25.81 and Decubital ulcer L89.90 [facility] [id number] [place] [address] 10914- 4745 Apr, [facility] [address] 75087- 9253 Apr, Diabetes E11.9 ; HTN (hypertension) I10 ; Restless legs syndrome G25.81 ; GERD (gastroesophageal reflux disease) K21.9 and COPD ( chronic obstructive pulmonary disease) J44.9 [facility] [id number] [place] [address] 86048- 3844 Mar, [facility] [address] 36388- 1807 Mar, [facility] [address] 51815- 9544 Mar, Diabetes E11.9 ; Abscess L02.91 and Restless legs syndrome G25.81 [facility] [id number] [place] [address] 47905- 1829 Mar, [facility] [id number] [place] [address] 09231- 0834 Feb, GERD (gastroesophageal reflux disease) K21.9 ; Back pain M54.9 ; ED (erectile dysfunction) N52.9 ; Diabetes E11.9 ; HTN (hypertension) I10 and Insomnia G47.00 [facility] [id number] [place] [address] 81487- 0227 Feb, [facility] [address] [place] [address]- 7884 Feb, [facility] [id number] [place] [address] 34230- 7617 Jan, [facility] [id number] [place] [address] 53201- 5874 Jan, Diabetes 250.00 ; Nondependent cannabis abuse, continuous 305.21 ; Cough 786.2 ; Schizoaffective disorder, unspecified 295.70 ; Sciatica 724.3 ; Other, mixed, or unspecified nondependent drug abuse, unspecified 305.90 ; Chronic pain 338.29 ; GERD (gastroesophageal reflux disease) 530.81 and HTN (hypertension) 401.9 [facility] [address] 81210- 5664 Jan, [facility] [address] 14905- 7259 Jan, [facility] [address] 65989- 2757 Jan, Chronic pain associated with significant psychosocial dysfunction 338.4 ; Diabetes mellitus without mention of complication, type I [ juvenile type], uncontrolled 250.03 ; Benign essential hypertension 401.1 ; Schizoaffective disorder, unspecified 295.70 ; Wheezing 786.07 ; Ear ache 388.70 ; Cough 786.2 ; Sciatica 724.3 and Foot pain, bilateral 729.5 [facility] [id number] [place] [address] 82639- 1167 Dec, [facility] [id number] [place] [address] 52343- 9751 Dec, [facility] [address] 41221- 6623 Dec, [facility] [id number] [place] [address] 36831- 1697 Dec, [facility] [id number] [place] [address] 40209- 6202 Dec, [facility] [address], [place] [address]- 9627 Nov, Elevated liver enzymes 790.5 [facility] [id number] [place] [address] 53220- 1708 Nov, [facility] [id number] [place] [address] 83711- 7978 Nov, [facility] [id number] [place] [address] 51884- 0454 Nov, [facility] [id number] [place] [address] 98705- 6961 Nov, Benign essential hypertension 401.1 ; Diabetes mellitus without mention of complication, type I [juvenile type], uncontrolled 250.03 and Nondependent cannabis abuse, continuous 305.21 [facility] [id number] [place] [address] 02986- 0903 Oct, Cellulitis 682.9 and Benign essential hypertension 401.1 [facility] [id number] [place] [address] 42747- 2569 Oct, [facility] [id number] [place] [address] 94301- 8376 September, [facility] [address], [place] [address]- 4189 September, [facility] [address], [place] [address]- 3173 Aug, [facility] [address], [place] [address]- 4930 Aug, [facility] [id number] [place] [address] 13481- 1676 Aug, [facility] [address], [place] [address]- 4103 Aug, [facility] [address], [place] [address]- 8358 Jul, [facility] [place] [facility] [address] [id number] [place] [address]- 6622 Jul, [facility] [place] [facility] [address] [id number] [place] [address]- 6608 Jul, [facility] [place] [facility] [address] [id number] [place] [address]- 7170 Jul, [facility] [place] [facility] [address] [id number] [place] [address]- 8512 Jul, [facility] [place] [facility] [address] [id number] [place] [address]- 4344 Jul, [facility] [place] [facility] [address] [id number] [place] [address]- 2435 Jun, [facility] [place] [facility] [address] [id number] [place] [address] Jun, [facility] [place] [facility] [address] [id number] [place] [address] Jun, [facility] [place] [facility] [address] [id number] [place] [address] Jun, [facility] [place] [facility] [address] [id number] [place] [address] Jun, [facility] [place] [facility] [address] [id number] [place] [address] May, [facility] [place] [facility] [address] [id number] [place] [address] May, [facility] [place] [facility] [address] [id number] [place] [address] May, [facility] [place] [facility] [address] [id number] [place] [address] May, [facility] [place] [facility] [address] [id number] [place] [address] May, [facility] [place] [facility] [address] [id number] [place] [address] May, [facility] [address] [id number] [place] [address] May, [facility] [place] [facility] [address] [id number] [place] [address] May, [facility] [place] [facility] [address] [id number] [place] [address] Apr, [facility] [place] [facility] [address] [id number] [place] [address] Apr, [facility] [place] [facility] [address] [id number] [place] [address] Apr, [facility] [place] [facility] [address] [id number] [place] [address] Apr, [facility] [place] [facility] [address] [id number] [place] [address] Mar, [facility] [place] [facility] [address] [id number] [place] [address] Mar, [facility] [place] [facility] [address] [id number] [place] [address] Mar, [facility] [place] [facility] [address] [address] [id number] [place] [address] Mar, [facility] [place] [facility] [address] [id number] [place] [address] Feb, [facility] [place] [facility] [address] [id number] [place] [address] Feb, [facility] [place] [facility] [address] [id number] [place] [address] [address] Feb, [facility] [place] [facility] [address] [id number] [place] [address] Feb, [facility] [place] [facility] [address] [id number] [place] [address] Feb, [facility] [place] [facility] [address] [id number] [place] [address] Feb, [facility] [place] [facility] [address] [id number] [place] [address] Jan, [facility] [place] [facility] [address] [id number] [place] [address] Jan, [facility] [place] [facility] [address] [id number] [place] [address] Jan, [facility] [place] [facility] [address] [id number] [place] [address] Jan, [facility] [place] [facility] [address] [id number] [place] [address] Dec, [facility] [place] [facility] [address] [id number] [place] [address] Dec, [facility] [place] [facility] [address] [id number] [place] [address] Dec, [facility] [place] [facility] [address] [id number] [place] [address] Dec, [facility] [place] [facility] [address] [id number] [place] [address] Dec, [facility] [place] [facility] [address] [id number] [place] [address] Dec, [facility] [place] [facility] [address] [id number], [place] [address] Oct, [facility] [place] [facility] [address] [id number] [place] [address] Oct, [facility] [place] [facility] [address] [id number] [place] [address] September, [facility] [place] [facility] [address] [id number] [place] [address] September, [facility] [place] [facility] [address] [id number] [place] [address] September, [facility] [address] [id number] [place] [address] September, [facility] [place] [facility] [address] [id number] [place] [address] September, [facility] [place] [facility] [address] [id number] [place] [address] September, [facility] [place] [facility] [address] [id number] [place] [address] Aug, [facility] [place] [facility] [address] [id number] [place] [address] Aug, [facility] [place] [facility] [address] [id number] [place] [address] Aug, [facility] [place] [facility] [address] [id number] [place] [address] Aug, [facility] [place] [facility] [address] [id number] [place] [address] Jul, [facility] [place] [facility] [address] [id number] [place] [address] Jul, [facility] [place] [facility] [address] [id number] [place] [address] Jun, [facility] [place] [facility] [address] [id number] [place] [address] Jun, [facility] [place] [facility] [address] [id number] [place] [address] May, [facility] [place] [facility] [address] [id number] [place] [address] May, [facility] [place] [facility] [address] [id number] [place] [address] Jan, [facility] [place] [facility] [address] [id number] [place] [address] Dec, [facility] [place] [facility] [address] [id number] [place] [address] Jun, [facility] [place] [facility] [address] [id number] [place] [address] May, [facility] [place] [facility] [address] [id number] [place] [address] Nov, [facility] [place] [facility] [address] [id number] [place] [address] September, [facility] [place] [facility] [address] [id number] [place] [address] Aug, [facility] [place] [facility] [address] [id number] [place] [address] Aug, [facility] [place] [facility] [address] [id number] [place] [address] Aug, [facility] [place] [facility] [address] [id number] [place] [address] Aug, [facility] [address] [id number] [place] [address] Nov, [facility] [place] [facility] [address] [id number] [place] [address] Oct, [facility] [place] [facility] [address] [id number] [place] [address] Jul, [facility] [place] [facility] [address] [id number] [place] [address] Feb, [facility] [place] [facility] [address] [id number] [place] [address] Feb, [facility] [place] [facility] [address] [id number] [place] [address] Apr, [facility] [place] [facility] [address] [id number] [place] [address] Apr, [facility] [place] [facility] [address] [id number] [place] [address] Feb, [facility] [address] [facility] [id number] [place] [address] Feb, [facility] [address] [facility] [id number] [place] [id number] Jul, IMMUNIZATIONS No Known Immunizations SOCIAL HISTORY [...]
--- OUTSIDE RECORDS SUMMARY | 2018-09-15 22:49 | XMS REPORT ---
Author Author YVES BLEVINS [facility] Address [address] [place] [address] Care Team Providers Care Heating Unit Installer Name Role Phone YVES BLEVINS Unavailable PROBLEMS Type Condition ICD9-CM Code DRQ07-UC Code Onset Dates Condition Status SNOMED Code Problem HTN (hypertension) I10 Active 79580742 Problem Restless legs syndrome G25.81 Active 723664548 Problem GERD (gastroesophageal reflux disease) K21.9 Active 275981217 Problem ED (erectile dysfunction) N52.9 Active 563976056 Problem PAD (peripheral artery disease) I73.9 Active 907945587 Problem Ulcer of right foot, unspecified ulcer stage L97.519 Active 60359504 Problem 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 303833288 Problem COPD (chronic obstructive pulmonary disease) J44.9 Active 03552194 Problem DM neuro manif type II E11.49 Active 19383507 Problem Sinusitis, unspecified chronicity, unspecified location J32.9 Active 13067783 ALLERGIES No Information ENCOUNTERS Encounter Location Date Diagnosis [facility] [id number] [place] [address] 68674- 0743 Nov, [facility] [id number] [place] [address] 07488- 8957 September, [facility] [id number] [place] [address] 69893- 4038 September, [facility] [address] 05859- 8292 September, Back pain M54.9 [facility] [id number] [place] [address] 50210- 2622 Aug, [facility] [address] 22735- 4296 Aug, Acute cystitis with hematuria N30.01 ; Ulcer of right foot, unspecified ulcer stage L97.519 ; HTN (hypertension) I10 ; COPD (chronic obstructive pulmonary disease) J44.9 and DM neuro manif type II E11.49 [facility] [id number] [place] [address] 43618- 9602 Aug, Back pain M54.9 [facility] [address] 01516- 1215 Jul, [facility] [id number] [place] [address] 44274- 8380 Jul, Back pain M54.9 [facility] [address] 34096- 8724 Jul, [facility] [id number] [place] [address] 48254- 4987 Jul, DM neuro manif type II E11.49 and Ulcer of right foot, unspecified ulcer stage L97.519 [facility] [id number] [place] [address] 77546- 2808 Jun, [facility] [id number] [place] [address] 95750- 7753 Jun, [facility] [id number] [place] [address] 47989- 6742 May, Type 2 diabetes mellitus with other diabetic neurological complication E11.49 ; GERD (gastroesophageal reflux disease) K21.9 and PAD ( peripheral artery disease) I73.9 [facility] [id number] [place] [address] 71661- 5038 May, Decubital ulcer L89.90 ; Diabetes E11.9 and GERD ( gastroesophageal reflux disease) K21.9 [facility] [id number] [place] [address] 92199- 9953 May, [facility] [id number] [place] [address] 70270- 4460 Apr, [facility] [address] [address]- 1605 Mar, [facility] [id number] [place] [address] 53606- 2976 Mar, [facility] [id number] [place] [address] 79362- 2848 Feb, [facility] [id number] [place] [address] 32631- 7177 Feb, [facility] [id number] [place] [address] 98985- 1193 Jan, [facility] [id number] [place] [address] 74053- 4381 Jan, HTN (hypertension) I10 [facility] [id number] [place] [address] 67173- 1487 Jan, [facility] [id number] [place] [address] 64520- 7558 Dec, Back pain M54.9 [facility] [id number] [place] [address] 33507- 1147 Dec, Back pain M54.9 [facility] [id number] [place] [address] 89676 -4557 Dec, Encounter for immunization Z23 and Puncture wound of right foot, initial encounter S91.331A [facility] [id number] [place] [address] 53270- 6747 Dec, [facility] [id number] [place] [address] 41310- 9818 Nov, [facility] [id number] [place] [address] 37869- 0123 Nov, COPD (chronic obstructive pulmonary disease) J44.9 [facility] [id number] [place] [address] 99121- 8696 Nov, [facility] [id number] [address]- 1346 Oct, [facility] [id number] [place] [address] 89765- 2599 Oct, [facility] [id number] [place] [address] 95343- 7327 September, Onychomycosis B35.1 and DM neuro manif type II E11.49 [facility] [id number] [place] [address] 29591- 0909 September, [facility] [id number] [place] [address] 76216- 7234 Aug, [facility] [id number] [place] [address] 50682- 9218 Jul, Sinusitis, unspecified chronicity, unspecified location J32.9 and Cough R05 [facility] [id number] [place] [address] 19961- 6658 Jul, Back pain M54.9 [facility] [id number] [place] [address] 70669- 0744 14 Jun, 2016 Back pain M54.9 [facility] [id number] [place] [address] 05300- 8984 06 Jun, 2016 COPD (chronic obstructive pulmonary disease) J44.9 [facility] [id number] [place] [address] 65632- 8385 May, [facility] [id number] [place] [address] 64382- 5187 May, [facility] [id number] [place] [address] 30971- 4422 May, Back pain M54.9 [facility] [id number] [place] [address] 95736- 0552 May, [facility] [id number] [place] [address] 49488- 1649 13 May, 2016 [facility] [id number] [place] [address] 25762- 9159 12 May, 2016 Diabetes E11.9 [facility] [id number] [place] [address] 82523- 0670 11 May, 2016 Diabetes E11.9 ; GERD [...] Z11.59 [facility] [id number] [place] [address] 22045- 6945 04 May, 2016 HTN (hypertension) I10 [facility] [id number] [place] [address] 10480- 0887 Apr, [facility] [id number] [place] [address] 69171- 9754 Apr, [facility] [id number] [place] [address] 12527- 6272 Apr, [facility] [id number] [place] [address] 01221- 1597 Apr, [facility] [id number] [place] [address] 54321- 3620 Apr, [facility] [id number] [place] [address] 61363- 2625 Mar, [facility] [id number] [place] [address] 86688- 1959 Mar, [facility] [id number] [place] [address] 44297- 7770 Mar, [facility] [id number] [place] [address] 92062- 9626 Mar, [facility] [id number] [place] [address] 75067- 9614 Mar, Dental examination Z01.20 [facility] [id number] [place] [address] 40025- 4226 Feb, [facility] [id number] [place] [address] 39673- 1330 Feb, [facility] [address] 93485- 8835 Feb, Back pain M54.9 [facility] [address] 27249- 5991 Jan, [facility] [id number] [place] [address] 93944- 6600 Jan, [facility] [address] 26577- 1021 Dec, Diabetes E11.9 ; GERD (gastroesophageal reflux disease) K21.9 ; ED (erectile dysfunction) N52.9 ; HTN (hypertension) I10 ; Insomnia G47.00 ; COPD (chronic obstructive pulmonary disease) J44.9 ; Neuropathy G62.9 and Bipolar depression F31.30 [facility] [id number] [place] [address] 59199- 2371 Dec, Type 2 diabetes mellitus with other diabetic neurological complication E11.49 and Onychomycosis B35.1 [facility] [id number] [place] [address] 27495- 9261 Dec, [facility] [id number] [place] [address] 18689- 3416 Dec, [facility] [id number] [place] [address] 81940- 0894 Dec, [facility] [id number] [place] [address] 84655- 4320 Dec, [facility] [id number] [address]- 2335 07 Nov, 2015 [facility] [id number] [place] [address] 94754- 6128 05 Nov, 2015 [facility] [address] [address]- 1749 Oct, [facility] [id number] [place] [address] 17723- 0296 Oct, [facility] [id number] [place] [address] 25573- 9253 Oct, Back pain M54.9 [facility] [id number] [place] [address] 14703- 6599 Oct, [facility] [id number] [place] [address] 57514- 3737 Oct, [facility] [id number] [place] [address] 75286- 5521 Oct, [facility] [id number] [place] [address] 44266- 2659 Oct, HTN (hypertension) I10 [facility] [id number] [place] [address] 78508- 3949 Oct, Back pain M54.9 [facility] [id number] [place] [address] 28796- 6040 Oct, Chronic pain syndrome G89.4 [facility] [address] [address]- 6356 September, Back pain M54.9 [facility] [id number] [place] [address] 78043- 1049 September, HTN (hypertension) I10 [facility] [address], [place] [address]- 2546 Aug, Porokeratosis Q82.8 ; Onychomycosis B35.1 and Type 2 diabetes mellitus with other diabetic neurological complication E11.49 [facility] [address] [address]- 2041 Aug, GERD (gastroesophageal reflux disease) K21.9 ; Diabetes E11.9 ; HTN (hypertension) I10 ; Insomnia G47.00 ; Restless legs syndrome G25.81 ; COPD (chronic obstructive pulmonary disease) J44.9 ; Back pain M54.9 and Bipolar 1 disorder F31.9 [facility] [id number] [place] [address] 60892- 5112 Aug, [facility] [id number] [place] [address] 52105- 3134 Aug, [facility] [id number] [place] [address] 44745- 0646 Aug, [facility] [id number] [place] [address] 24209- 3210 Aug, [facility] [id number] [place] [address] 78091- 2740 Jul, [facility] [id number] [place] [address] 42283- 2905 Jul, [facility] [id number] [place] [address] 68975- 0835 30 Jul, 2015 [facility] [id number] [place] [address] 21040- 4810 Jul, [facility] [id number] [place] [address] 91276- 1442 15 Jul, 2015 [facility] [address] [address]- 6860 Jul, [facility] [id number] [place] [address] 28827- 0793 17 Jun, 2015 Decubital ulcer L89.90 ; Diabetes E11.9 ; Back pain M54.9 ; HTN (hypertension) I10 and COPD (chronic obstructive pulmonary disease) J44.9 [facility] [address], [place] [address]- 7367 Jun, [facility] [id number] [place] [address] 06658- 3116 Jun, [facility] [id number] [place] [address] 50633- 0106 Jun, [facility] [id number] [place] [address] 77126- 3189 Jun, [facility] [id number] [place] [address] 96716- 1118 Jun, Diabetes E11.9 ; Insomnia G47.00 ; Decubital ulcer L89.90 ; GERD (gastroesophageal reflux disease) K21.9 ; Back pain M54.9 ; Superficial fungus infection of skin B36.9 and HTN (hypertension) I10 [address] [id number] [id number] Jun, Dental examination Z01.20 [facility] [id number] [place] [address] 62752- 4369 May, [facility] [id number] [place] [address] 78125- 2248 May, [facility] [id number] [place] [address] 73628- 2188 May, [facility] [id number] [place] [address] 29448- 5274 May, Diabetes E11.9 ; HTN (hypertension) I10 and Decubital ulcer L89.90 [facility] [id number] [place] [address] 84548- 1019 May, HTN (hypertension) I10 ; Decubital ulcer L89.90 and Diabetes E11.9 [facility] [address], [place] [address]- 2691 Apr, Diabetes E11.9 ; GERD (gastroesophageal reflux disease) K21.9 ; Back pain M54.9 ; HTN (hypertension) I10 ; Restless legs syndrome G25.81 and Decubital ulcer L89.90 [facility] [id number] [place] [address] 39312- 2655 Apr, [facility] [id number] [place] [address] 07102- 3179 Apr, Diabetes E11.9 ; HTN (hypertension) I10 ; Restless legs syndrome G25.81 ; GERD (gastroesophageal reflux disease) K21.9 and COPD ( chronic obstructive pulmonary disease) J44.9 [facility] [id number] [place] [address] 12461- 4827 Mar, [facility] [address] 84339- 1907 Mar, [facility] [id number] [place] [address] 90532- 9791 Mar, Diabetes E11.9 ; Abscess L02.91 and Restless legs syndrome G25.81 [facility] [id number] [place] [address] 03841- 6448 Mar, [facility] [id number] [place] [address] 12102- 6450 Feb, GERD (gastroesophageal reflux disease) K21.9 ; Back pain M54.9 ; ED (erectile dysfunction) N52.9 ; Diabetes E11.9 ; HTN (hypertension) I10 and Insomnia G47.00 [facility] [id number] [place] [address] 30455- 7065 Feb, [facility] [id number] [place] [address] 22930- 6030 Feb, [facility] [id number] [place] [address] 03292- 6812 Jan, [facility] [id number] [place] [address] 35313- 0619 Jan, Diabetes 250.00 ; Nondependent cannabis abuse, continuous 305.21 ; Cough 786.2 ; Schizoaffective disorder, unspecified 295.70 ; Sciatica 724.3 ; Other, mixed, or unspecified nondependent drug abuse, unspecified 305.90 ; Chronic pain 338.29 ; GERD (gastroesophageal reflux disease) 530.81 and HTN (hypertension) 401.9 [facility] [id number] [place] [address] 23592- 2825 Jan, [facility] [address] 24386- 4254 Jan, [facility] [address] 67668- 2294 Jan, Chronic pain associated with significant psychosocial dysfunction 338.4 ; Diabetes mellitus without mention of complication, type I [ juvenile type], uncontrolled 250.03 ; Benign essential hypertension 401.1 ; Schizoaffective disorder, unspecified 295.70 ; Wheezing 786.07 ; Ear ache 388.70 ; Cough 786.2 ; Sciatica 724.3 and Foot pain, bilateral 729.5 [facility] [id number] [place] [address] 72107- 6258 Dec, [facility] [address] 20592- 8280 Dec, [facility] [id number] [place] [address] 43122- 8969 Dec, [facility] [id number] [place] [address] 29310- 0853 Dec, [facility] [id number] [place] [address] 06891- 4777 Dec, [facility] [address] 64540- 2170 Nov, Elevated liver enzymes 790.5 [facility] [id number] [place] [address] 13485- 7116 Nov, [facility] [address] 65789- 5832 15 Nov, 2014 [facility] [address], [place] [address]- 8291 Nov, [facility] [id number] [place] [address] 111004- 5358 Nov, Benign essential hypertension 401.1 ; Diabetes mellitus without mention of complication, type I [juvenile type], uncontrolled 250.03 and Nondependent cannabis abuse, continuous 305.21 [facility] [id number] [place] [address] 92528- 1708 Oct, Cellulitis 682.9 and Benign essential hypertension 401.1 [facility] [id number] [place] [address] 78245- 3946 Oct, [facility] [id number] [place] [address] 59235- 5143 September, [facility] [id number] [place] [address] 79102- 5483 September, [facility] [id number] [place] [address] 63242- 4163 Aug, [facility] [id number] [place] [address] 38218- 6412 Aug, [facility] [address], [place] [address]- 2753 Aug, [facility] [address] [place] [address]- 5012 Aug, [facility] [address] [place] [address]- 0487 Jul, [facility] [id number] [place] [address] 64531477- 2952 Jul, [facility] [address] 2019 Jul, [facility] [id number] [place] [address] 92956- 5890 Jul, [facility] [place] [facility] [address] [id number] [place] [address]- 9174 Jul, [facility] [place] [facility] [address] [id number] [place] [address]- 2525 Jul, [facility] [place] [facility] [address] [id number] [place] [address]- 6225 Jun, [facility] [place] [facility] [address] [id number] [place] [address]- 8073 Jun, [facility] [place] [facility] [address] [id number] [place] [address]- 2499 Jun, [facility] [place] [facility] [address] [id number] [place] [address]- 9723 Jun, [facility] [place] [facility] [address] [id number] [place] [address]- 4804 Jun, [facility] [place] [facility] [address] [id number] [place] [address]- 4219 May, [facility] [place] [facility] [address] [id number] [place] [address] May, [facility] [place] [facility] [address] [id number] [place] [address] May, [facility] [place] [facility] [address] [id number] [place] [address] May, [facility] [place] [facility] [address] [id number] [place] [address] May, [facility] [place] [facility] [address] [id number] [place] [address] May, [facility] [place] [facility] [address] [id number] [place] [address] May, [facility] [place] [facility] [address] [id number] [place] [address] May, [facility] [place] [facility] [address] [id number] [place] [address] Apr, [facility] [place] [facility] [address] [id number] [place] [address] Apr, [facility] [place] [facility] [address] [id number] [place] [address] Apr, [facility] [place] [facility] [address] [id number] [place] [address] Apr, [facility] [place] [facility] [address] [id number] [place] [address] Mar, [facility] [place] [facility] [address] [id number] [place] [address] Mar, [facility] [place] [facility] [address] [id number] [place] [address] Mar, [facility] [place] [facility] [address] [id number] [place] [address] Mar, [facility] [place] [facility] [address] [id number] [place] [address] Feb, [facility] [place] [facility] [address] [id number] [place] [address] Feb, [facility] [place] [facility] [address] [id number] [place] [address] Feb, [facility] [place] [facility] [address] [id number] [place] [address] Feb, [facility] [place] [facility] [address] [id number] [place] [address] Feb, [facility] [place] [facility] [address] [id number] [place] [address] Feb, [facility] [place] [facility] [address] [id number] [place] [address] Jan, [facility] [place] [facility] [address] [id number] [place] [id number] [address] Jan, [facility] [place] [facility] [address] [id number] [place] [address] Jan, [facility] [place] [facility] [address] [id number] [place] [address] Jan, [facility] [place] [facility] [address] [id number] [place] [address] Dec, [facility] [place] [facility] [address] [id number] [place] [address] Dec, [facility] [place] [facility] [address] [id number] [place] [address] Dec, [facility] [place] [facility] [address] [id number] [place] [address] Dec, [facility] [place] [facility] [address] [id number] [place] [address] Dec, [facility] [place] [facility] [address] [id number] [place] [address] Dec, [facility] [place] [facility] [address] [id number] [place] [address] Oct, [facility] [place] [facility] [address] [id number] [place] [address] Oct, [facility] [place] [facility] [address] [id number] [place] [address] September, [facility] [place] [facility] [address] [id number] [place] [address] September, [facility] [place] [facility] [address] [id number] [place] [address] September, [facility] [place] [facility] [address] [id number] [place] [address] September, [facility] [place] [facility] [address] [id number] [place] [id number] September, [facility] [place] [facility] [address] [id number] [place] [address] September, [facility] [place] [facility] [address] [id number] [place] [address] Aug, [facility] [place] [facility] [address] [id number] [place] [address] Aug, [facility] [place] [facility] [address] [id number] [place] [address] Aug, [facility] [place] [facility] [address] [id number] [place] [address] Aug, [facility] [place] [facility] [address] [id number] [place] [address] Jul, [facility] [place] [facility] [address] [id number] [place] [address] Jul, [facility] [place] [facility] [address] [id number] [place] [address] Jun, [facility] [place] [facility] [address] [id number] [place] [address] Jun, [facility] [place] [facility] [address] [id number] [place] [address] May, [facility] [place] [facility] [address] [id number] [place] [address] May, [facility] [place] [facility] [address] [id number] [place] [address] Jan, [facility] [place] [facility] [address] [id number] [place] [address] Dec, [facility] [place] [facility] [address] [id number] [place] [address] Jun, [facility] [place] [facility] [address] [id number] [place] [address] May, [facility] [place] [facility] [address] [id number] [place] [address] Nov, [facility] [address] [id number], [place] [address] September, [facility] [address] [id number] [place] [address] Aug, [facility] [address] [facility] [id number], [place] [address] Aug, [facility] [address] [facility] [id number] [place] [address] Aug, [facility] [address] [id number] [place] [address] Aug, [facility] [address] [facility] [id number] [place] [address] Nov, [facility] [address] [facility] [id number] [place] [address] Oct, [facility] [address] [facility] [id number], [place] [address] Jul, [facility] [address] [facility] [id number], [place] [address] Feb, [facility] [address] [facility] [id number], [place] [address] Feb, [facility] [address] [id number], [place] [address] Apr, [facility] [address] [facility] [id number], [place] [address] Apr, [facility] [address] [facility] [id number], [place] [address] Feb, [facility] [address] [facility] [id number], [place] [address] Feb, [facility] [address] [facility] [id number], [place] [address] 14 Jul, 2008 IMMUNIZATIONS No Known Immunizations SOCIAL HISTORY Never Assessed REASON FOR VISIT Vicoprofen- 03/03 PLAN OF CARE VITAL SIGNS MEDICATIONS Medication Instructions Dosage Frequency Start Date End Date Duration Status Hydrocodone-Ibuprofen 7.5-200 MG Orally 3 times a day 1 tablet as needed 8h 24 Feb, 2017 28 days Active RESULTS No Results [...]
[2018-09-15 22:50] LABS: ACETAMINOPHEN < 10 UG/ML (10-30)
[2018-09-15] MEDS ORDERED: PROPOFOL DRIP (ICU) 100 ML IV ONE (22:50)
--- OUTSIDE RECORDS SUMMARY | 2018-09-15 22:50 | XMS REPORT ---
Author Author YVES BLEVINS [facility] Address [address] [place] [address] Care Team Providers [employer] Assistant Name Role Phone YVES BLEVINS Unavailable PROBLEMS Type Condition ICD9-CM Code RGI37-OM Code Onset Dates Condition Status SNOMED Code Problem HTN (hypertension) I10 Active 37827063 Problem Restless legs syndrome G25.81 Active 519524486 Problem GERD (gastroesophageal reflux disease) K21.9 Active 600252060 Problem ED (erectile dysfunction) N52.9 Active 223558555 Problem PAD (peripheral artery disease) I73.9 Active 950327777 Problem Ulcer of right foot, unspecified ulcer stage L97.519 Active 50452987 Problem 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 721442986 Problem COPD (chronic obstructive pulmonary disease) J44.9 Active 20391318 Problem DM neuro manif type II E11.49 Active 98611908 Problem Sinusitis, unspecified chronicity, unspecified location J32.9 Active 49262516 ALLERGIES No Information ENCOUNTERS Encounter Location Date Diagnosis [facility] [id number] [place] [address] 07655- 0015 Nov, [facility] [id number] [place] [address] 95285- 6234 September, [facility] [id number] [place] [address] 80599- 8041 September, [facility] [id number] [place] [address] 73832- 7672 September, Type 2 diabetes mellitus with other diabetic neurological complication E11.49 and Hypotension, unspecified hypotension type I95.9 [facility] [id number] [address] 5921 September, [facility] [id number] [place] [address] 26926- 5513 September, [facility] [id number] [place] [address] 00168- 1763 September, Back pain M54.9 [facility] [id number] [place] [address] 42098- 3721 Aug, [facility] [address] 64567- 4035 Aug, Acute cystitis with hematuria N30.01 ; Ulcer of right foot, unspecified ulcer stage L97.519 ; HTN (hypertension) I10 ; COPD (chronic obstructive pulmonary disease) J44.9 and DM neuro manif type II E11.49 [facility] [id number] [place] [address] 91569- 1599 Aug, Back pain M54.9 [facility] [id number] [place] [address] 69565- 6986 Jul, [facility] [id number] [place] [address] 75906- 8774 Jul, Back pain M54.9 [facility] [id number] [place] [address] 07686- 4428 Jul, [facility] [id number] [place] [address] 96982- 1443 Jul, DM neuro manif type II E11.49 and Ulcer of right foot, unspecified ulcer stage L97.519 [facility] [id number] [place] [address] 18196- 4546 Jun, [facility] [id number] [place] [address] 08593- 8868 Jun, [facility] [id number] [place] [address] 33211- 2126 May, Type 2 diabetes mellitus with other diabetic neurological complication E11.49 ; GERD (gastroesophageal reflux disease) K21.9 and PAD ( peripheral artery disease) I73.9 [facility] [id number] [place] [address] 90521- 5433 May, Decubital ulcer L89.90 ; Diabetes E11.9 and GERD ( gastroesophageal reflux disease) K21.9 [facility] [id number] [place] [address] 61608- 2487 May, [facility] [address] 06150- 0867 Apr, [facility] [address] 03499- 4453 Mar, [facility] [address] 15943- 3775 Mar, [facility] [address] 84652- 7185 Feb, [facility] [address] 19405- 0548 Feb, [facility] [id number] [place] [address] 58872- 4945 Jan, [facility] [address] 44725- 4014 Jan, HTN (hypertension) I10 [facility] [id number] [place] [address] 66976- 0181 Jan, [facility] [id number] [place] [address] 80753- 1877 Dec, Back pain M54.9 [facility] [id number] [place] [address] 62675- 1855 Dec, Back pain M54.9 [facility] [id number] [place] [address] 81003 -9669 Dec, Encounter for immunization Z23 and Puncture wound of right foot, initial encounter S91.331A [facility] [address] 65001- 2636 Dec, [facility] [id number] [address]- 2528 Nov, [facility] [id number] [place] [address] 86694- 5982 Nov, COPD (chronic obstructive pulmonary disease) J44.9 [facility] [id number] [place] [address] 44168- 4404 Nov, [facility] [id number] [place] [address] 68141- 4190 Oct, [facility] [id number] [place] [address] 40572- 6824 Oct, [facility] [id number] [place] [address] 62926- 0451 September, Onychomycosis B35.1 and DM neuro manif type II E11.49 [facility] [id number] [place] [address] 37926- 6836 September, [facility] [id number] [place] [address] 32240- 0489 Aug, [facility] [id number] [place] [address] 50146- 9843 Jul, Sinusitis, unspecified chronicity, unspecified location J32.9 and Cough R05 [facility] [id number] [place] [address] 51455- 8336 Jul, Back pain M54.9 [facility] [id number] [place] [address] 79388- 9615 Jun, Back pain M54.9 [facility] [id number] [place] [address] 59177- 2272 Jun, COPD (chronic obstructive pulmonary disease) J44.9 [facility] [id number] [place] [address] 65135- 5086 May, [facility] [id number] [address]- 3555 17 May, 2016 [facility] [address], [place] [address]- 9922 17 May, 2016 Back pain M54.9 [facility] [address], [place] [address]- 5018 16 May, 2016 [facility] [id number] [place] [address] 36849- 0671 May, [facility] [address], [place] [address]- 7564 12 May, 2016 Diabetes E11.9 [facility] [id number] [place] [address] 86828- 7469 11 May, 2016 Diabetes E11.9 ; GERD [...] screening test Z11.59 [facility] [id number] [address]- 9769 May, HTN (hypertension) I10 [facility] [id number], [place] [address]- 2666 Apr, [facility] [address], [place] [address]- 6553 Apr, [facility] [address], [place] [address]- 7517 Apr, [facility] [address] [address]- 5287 Apr, [facility] [address], [place] [address]- 4860 Apr, [facility] [id number] [place] [address] 32205- 4714 Mar, [facility] [address] 78113- 2158 Mar, [facility] [id number] [place] [address] 70005- 6866 Mar, [facility] [address] 56532- 7359 Mar, [facility] [id number] [place] [address] 71778- 2898 Mar, Dental examination Z01.20 [place] [address] 77572- 2101 Feb, [facility] [id number] [place] [address] 20848- 7914 Feb, [facility] [id number] [place] [address] 95131- 3520 Feb, Back pain M54.9 [facility] [address] 64811- 6907 Jan, [facility] [id number] [place] [address] 96276- 6937 Jan, [facility] [id number] [place] [address] 28935- 3638 Dec, Diabetes E11.9 ; GERD (gastroesophageal reflux disease) K21.9 ; ED (erectile dysfunction) N52.9 ; HTN (hypertension) I10 ; Insomnia G47.00 ; COPD (chronic obstructive pulmonary disease) J44.9 ; Neuropathy G62.9 and Bipolar depression F31.30 [facility] [id number] [place] [address] 09160- 0816 Dec, Type 2 diabetes mellitus with other diabetic neurological complication E11.49 and Onychomycosis B35.1 [facility] [id number] [place] [address] 29771- 5290 Dec, [facility] [address] [facility] [id number] [place] [address]- 0553 Dec, [facility] [address] [facility] [id number] [address]- 9516 Dec, [facility] [id number] [place] [address]- 9370 Dec, [facility] [address] [facility] [id number], [place] [address]- 4747 Nov, [facility] [address] [facility] [id number] [place] [address], [place] [address]- 4655 Nov, [facility] [address] [id number] [place] [address]- 6817 Oct, [facility] [id number] [place] [address] 18288- 3378 Oct, [facility] [address] [address]- 6235 Oct, Back pain M54.9 [facility] [id number] [place] [address] 17541- 7544 Oct, [facility] [id number] [address]- 8551 Oct, [facility] [address], [place] [address]- 2421 Oct, [facility] [address], [place] [address]- 5229 Oct, HTN (hypertension) I10 [facility] [address], [place] [address]- 8963 Oct, Back pain M54.9 [facility] [address], [place] [address]- 3342 Oct, Chronic pain syndrome G89.4 [facility] [id number] [place] [address] 30556- 4113 September, Back pain M54.9 [facility] [address] 06589- 5941 September, HTN (hypertension) I10 [facility] [id number] [place] [address] 16008- 7532 29 Aug, 2015 Porokeratosis Q82.8 ; Onychomycosis B35.1 and Type 2 diabetes mellitus with other diabetic neurological complication E11.49 [facility] [id number] [place] [address] 58146- 2680 Aug, GERD (gastroesophageal reflux disease) K21.9 ; Diabetes E11.9 ; HTN (hypertension) I10 ; Insomnia G47.00 ; Restless legs syndrome G25.81 ; COPD (chronic obstructive pulmonary disease) J44.9 ; Back pain M54.9 and Bipolar 1 disorder F31.9 [facility] [id number] [place] [address] 32297- 4339 Aug, [facility] [id number] [place] [address] 72397- 3032 Aug, [facility] [id number] [place] [address] 55181- 2874 Aug, [facility] [id number] [place] [address] 93455- 6870 Aug, [facility] [id number] [place] [address] 58680- 8637 Jul, [facility] [id number] [place] [address] 75855- 8658 31 Jul, 2015 [facility] [id number] [place] [address] 82640- 2764 30 Jul, 2015 [facility] [id number] [place] [address] 76834- 2135 16 Jul, 2015 [facility] [id number] [place] [address] 84501- 1521 Jul, [facility] [address], [place] [address]- 6963 Jul, [facility] [id number] [place] [address] 46822- 9550 Jun, Decubital ulcer L89.90 ; Diabetes E11.9 ; Back pain M54.9 ; HTN (hypertension) I10 and COPD (chronic obstructive pulmonary disease) J44.9 [facility] [address], [place] [address]- 2421 Jun, [facility] [id number] [place] [address] 52127- 7903 Jun, [facility] [id number] [place] [address] 77767- 4147 Jun, [facility] [id number] [place] [address] 08441- 3929 Jun, [facility] [id number] [place] [address] 22560- 1208 Jun, Diabetes E11.9 ; Insomnia G47.00 ; Decubital ulcer L89.90 ; GERD (gastroesophageal reflux disease) K21.9 ; Back pain M54.9 ; Superficial fungus infection of skin B36.9 and HTN (hypertension) I10 [address] [id number] [id number] Jun, Dental examination Z01.20 [facility] [address], [place] [address]- 8855 May, [facility] [id number] [place] [address] 02232- 8728 May, [facility] [address], [place] [address]- 9334 May, [facility] [id number] [place] [address] 93586- 8834 May, Diabetes E11.9 ; HTN (hypertension) I10 and Decubital ulcer L89.90 [facility] [id number] [place] [address] 55760- 4909 May, HTN (hypertension) I10 ; Decubital ulcer L89.90 and Diabetes E11.9 [place] [address] 27780- 1749 Apr, Diabetes E11.9 ; GERD (gastroesophageal reflux disease) K21.9 ; Back pain M54.9 ; HTN (hypertension) I10 ; Restless legs syndrome G25.81 and Decubital ulcer L89.90 [place] [facility] [address] 75078- 2514 Apr, [facility] [facility] [address] 56998- 7813 Apr, Diabetes E11.9 ; HTN (hypertension) I10 ; Restless legs syndrome G25.81 ; GERD (gastroesophageal reflux disease) K21.9 and COPD ( chronic obstructive pulmonary disease) J44.9 [facility] [id number] [place] [address] 00187- 9163 Mar, [facility] [facility] [address] 19092- 2747 Mar, [place] [facility] [address] 49457- 1585 Mar, Diabetes E11.9 ; Abscess L02.91 and Restless legs syndrome G25.81 [facility] [id number] [place] [address] 72376- 3003 Mar, [place] [address] 38952- 1344 Feb, GERD (gastroesophageal reflux disease) K21.9 ; Back pain M54.9 ; ED (erectile dysfunction) N52.9 ; Diabetes E11.9 ; HTN (hypertension) I10 and Insomnia G47.00 [place] [address] 62159- 1534 Feb, [facility] [address] [address]- 2933 Feb, [facility] [id number] [place] [address] 00722- 4025 Jan, [facility] [id number] [place] [address] 56872- 8602 Jan, Diabetes 250.00 ; Nondependent cannabis abuse, continuous 305.21 ; Cough 786.2 ; Schizoaffective disorder, unspecified 295.70 ; Sciatica 724.3 ; Other, mixed, or unspecified nondependent drug abuse, unspecified 305.90 ; Chronic pain 338.29 ; GERD (gastroesophageal reflux disease) 530.81 and HTN (hypertension) 401.9 [facility] [id number] [place] [address] 40050- 7512 Jan, [facility] [id number] [place] [address] 48707- 1463 Jan, [facility] [id number] [place] [address] 23693- 3606 Jan, Chronic pain associated with significant psychosocial dysfunction 338.4 ; Diabetes mellitus without mention of complication, type I [ juvenile type], uncontrolled 250.03 ; Benign essential hypertension 401.1 ; Schizoaffective disorder, unspecified 295.70 ; Wheezing 786.07 ; Ear ache 388.70 ; Cough 786.2 ; Sciatica 724.3 and Foot pain, bilateral 729.5 [facility] [address] [place] [address] 31532- 5946 Dec, [facility] [id number] [place] [address] 63423- 2540 Dec, [facility] [id number] [place] [address] 83603- 5286 Dec, [facility] [id number] [place] [address] 87280- 7447 Dec, [facility] [address], [place] [address]- 5439 Dec, [facility] [address], [place] [address]- 6785 Nov, Elevated liver enzymes 790.5 [facility] [address], [place] [address]- 5995 Nov, [facility] [id number] [place] [address] 35321- 7669 Nov, [facility] [address], [place] [address]- 9437 Nov, [facility] [id number] [place] [address] 74548- 9323 Nov, Benign essential hypertension 401.1 ; Diabetes mellitus without mention of complication, type I [juvenile type], uncontrolled 250.03 and Nondependent cannabis abuse, continuous 305.21 [facility] [address], [place] [address]- 6077 Oct, Cellulitis 682.9 and Benign essential hypertension 401.1 [facility] [address], [place] [address]- 8271 Oct, [facility] [address], [place] [address]- 3636 September, [facility] [address], [place] [address]- 3483 September, [facility] [address], [place] [address]- 9398 Aug, [facility] [address], [place] [address]- 6308 Aug, [facility] [address], [place] [address]- 9415 Aug, [facility] [address], [place] [address]- 3293 Aug, [facility] [place] [facility] [address] [id number] [place] [address]- 1680 Jul, [facility] [place] [facility] [address] [id number] [place] [address]- 8069 Jul, [facility] [place] [facility] [address] [id number] [place] [address]- 5475 Jul, [facility] [place] [facility] [address] [id number] [place] [address]- 5151 Jul, [facility] [place] [facility] [address] [id number] [place] [address]- 9563 Jul, [facility] [place] [facility] [address] [id number] [place] [address]- 0410 Jul, [facility] [place] [facility] [address] [id number] [place] [address]- 7613 Jun, [facility] [place] [facility] [address] [id number] [place] [address]- 3892 Jun, [facility] [place] [facility] [address] [id number] [place] [address]- 8307 Jun, [facility] [place] [facility] [address] [facility] [id number] [place] [address]- 7100 Jun, [facility] [place] [facility] [address] [id number] [place] [address]- 9042 Jun, [facility] [place] [facility] [address] [id number] [place] [address]- 5276 May, [facility] [place] [facility] [address] [id number] [place] [address]- 7066 May, [facility] [place] [facility] [address] [id number] [place] [address]- 7606 May, [facility] [place] [facility] [address] [id number] [place] [address]- 2131 May, [facility] [place] [facility] [address] [id number], [place] [address]- 5219 May, [facility] [place] [facility] [address] [id number] [place] [address]- 6695 May, [facility] [place] [facility] [address] [id number] [place] [address]- 7167 May, [facility] [place] [facility] [address] [facility] [id number] [place] [address]- 7942 May, [facility] [place] [facility] [address] [id number] [place] [address]- 3759 Apr, [facility] [place] [facility] [address] [id number] [place] [address]- 3516 Apr, [facility] [place] [facility] [address] [facility] [id number] [place] [address] Apr, [facility] [place] [facility] [address] [facility] [id number], [place] [address] Apr, [facility] [place] [facility] [address] [id number] [place] [address] Mar, [facility] [place] [facility] [address] [facility] [id number] [place] [address] Mar, [facility] [place] [facility] [address] [facility] [id number], [place] [address] Mar, [facility] [place] [facility] [address] [id number], [place] [address] Mar, [facility] [place] [facility] [address] [id number], [place] [address] Feb, [facility] [place] [facility] [address] [id number], [place] [address] Feb, [facility] [place] [facility] [address] [facility] [id number], [place] [address] Feb, [facility] [place] [facility] [address] [facility] [id number], [place] [address] Feb, [facility] [place] [facility] [address] [id number] [place] [address] Feb, [facility] [place] [facility] [address] [id number] [place] [address] Feb, [facility] [place] [facility] [address] [id number] [place] [address] Jan, [facility] [place] [facility] [address] [id number] [place] [address] Jan, [facility] [place] [facility] [address] [id number] [place] [address] Jan, [facility] [place] [facility] [address] [id number] [place] [address] Jan, [facility] [place] [facility] [address] [id number] [place] [address] Dec, [facility] [place] [facility] [address] [id number] [place] [address] Dec, [facility] [place] [facility] [address] [id number] [place] [address] Dec, [facility] [place] [facility] [address] [id number] [place] [address] Dec, [facility] [place] [facility] [address] [id number] [place] [address] Dec, [facility] [place] [facility] [address] [id number] [place] [address] Dec, [facility] [place] [facility] [address] [id number] [place] [address] Oct, [facility] [place] [facility] [address] [id number] [place] [address] Oct, [facility] [place] [facility] [address] [id number] [place] [address] September, [facility] [place] [facility] [address] [id number] [place] [address] September, [facility] [place] [facility] [address] [id number] [place] [address] September, [facility] [place] [facility] [address] [id number] [place] [address] September, [facility] [place] [facility] [address] [id number] [place] [address] September, [facility] [place] [facility] [address] [id number] [place] [address] September, [facility] [place] [facility] [address] [id number] [place] [address] Aug, [facility] [place] [facility] [address] [id number] [place] [address] Aug, [facility] [place] [facility] [address] [id number] [place] [address] Aug, [facility] [place] [facility] [address] [id number] [place] [address] Aug, [facility] [place] [facility] [address] [id number] [place] [address] Jul, [facility] [place] [facility] [address] [id number] [place] [address] Jul, [facility] [place] [facility] [address] [id number] [place] [address] Jun, [facility] [place] [facility] [address] [id number] [place] [address] Jun, [facility] [place] [facility] [address] [id number] [place] [address] May, [facility] [place] [facility] [address] [id number] [place] [address] May, [facility] [place] [facility] [address] [id number] [place] [address] Jan, [facility] [place] [facility] [address] [id number] [place] [address] Dec, [facility] [address] [id number] [place] [address] Jun, [facility] [address] [id number] [place] [address] May, [facility] [address] [id number] [place] [address] Nov, [facility] [address] [id number] [place] [address] September, [facility] [address] [id number] [place] [address] Aug, [facility] [address] [id number] [place] [address] Aug, [facility] [address] [id number] [place] [address] Aug, [facility] [address] [id number] [place] [address] Aug, [facility] [address] [id number] [place] [address] Nov, [facility] [address] [id number] [place] [address] Oct, [facility] [address] [id number] [place] [address] Jul, [facility] [address] [id number] [place] [address] Feb, [facility] [address] [id number] [place] [address] Feb, [facility] [address] [id number] [place] [address] Apr, [facility] [address] [id number] [place] [address] Apr, [facility] [address] [facility] [id number] [place] [address] Feb, [facility] [address] [facility] [id number] [place] [address] Feb, [facility] [address] [facility] [id number] [place] [address] Jul, IMMUNIZATIONS No Known Immunizations SOCIAL HISTORY Never Assessed REASON FOR VISIT Vicoprofen- 03/31 PLAN OF CARE VITAL SIGNS MEDICATIONS Medication Instructions Dosage Frequency Start Date End Date Duration Status Lyrica 150 MG Orally Twice a day 1 capsule 12h 28 Active Hydrocodone-Ibuprofen 7.5-200 MG Orally 3 times a day 1 tablet as needed 8h 21 Mar, 2017 28 days Active RESULTS No Results [...]
[2018-09-15 22:51] LABS: BACTERIA,URINE NEGATIVE /HPF; BILIRUBIN,URINE 1+ (NEGATIVE); RBC,URINE 0-2 /HPF; WBC,URINE 0-2 /HPF
--- OUTSIDE RECORDS SUMMARY | 2018-09-15 22:51 | XMS REPORT ---
Author Author YVES BLEVINS [facility] Address [address] [place] [address] Care Team Providers Care Facility Worker Name Role Phone YVES BLEVINS Unavailable PROBLEMS Type Condition ICD9-CM Code VDQ69-UM Code Onset Dates Condition Status SNOMED Code Problem HTN (hypertension) I10 Active 54620621 Problem Restless legs syndrome G25.81 Active 182204382 Problem GERD (gastroesophageal reflux disease) K21.9 Active 912800784 Problem ED (erectile dysfunction) N52.9 Active 395953442 Problem PAD (peripheral artery disease) I73.9 Active 535192591 Problem Ulcer of right foot, unspecified ulcer stage L97.519 Active 68584056 Problem 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 156685318 Problem COPD (chronic obstructive pulmonary disease) J44.9 Active 25694080 Problem DM neuro manif type II E11.49 Active 74374557 Problem Sinusitis, unspecified chronicity, unspecified location J32.9 Active 80470386 ALLERGIES No Information ENCOUNTERS Encounter Location Date Diagnosis [facility] [id number] [place] [address] 69305- 0065 Nov, [facility] [id number] [place] [address] 25202- 4949 Nov, [facility] [id number] [place] [address] 97227- 1948 Nov, Back pain M54.9 [facility] [address] 84088- 7720 Nov, Shortness of breath R06.02 [facility] [id number] [place] [address] 69895- 9845 Nov, [facility] [address] 96889- 2910 Oct, [facility] [address] [facility] [id number], [place] [address] 4817 Oct, [facility] [address] [facility] [id number] [place] [address] 25303- 3693 Oct, [facility] [address] [id number] [address] 2938 Oct, [facility] [id number] [place] [address] 13986- 5330 Oct, [facility] [id number] [place] [address] 60002- 9082 Oct, Back pain M54.9 [facility] [id number] [place] [address] 06303- 8819 Oct, Back pain M54.9 [facility] [id number] [place] [address] 83198- 3363 Oct, [facility] [id number] [place] [address] 57098- 4600 September, [facility] [id number] [place] [address] 74915- 7997 September, [facility] [id number] [place] [address] 98042- 6317 September, [facility] [id number] [place] [address] 26115- 2406 September, Type 2 diabetes mellitus with other diabetic neurological complication E11.49 and Hypotension, unspecified hypotension type I95.9 [facility] [address] [facility] [id number], [place] [address]- 9890 September, [facility] [id number] [place] [address] 37375- 2145 September, [facility] [address] [address]- 6317 September, Back pain M54.9 [facility] [id number] [place] [address] 15155- 2407 Aug, [place] [address] 24633- 2232 24 Aug, 2017 Acute cystitis with hematuria N30.01 ; Ulcer of right foot, unspecified ulcer stage L97.519 ; HTN (hypertension) I10 ; COPD (chronic obstructive pulmonary disease) J44.9 and DM neuro manif type II E11.49 [facility] [id number] [place] [address] 62753- 8607 Aug, Back pain M54.9 [place] [address] 45259- 9418 Jul, [place] [id number] [place] [address] 58618- 5774 Jul, Back pain M54.9 [place] [id number] [place] [address] 29918- 6170 Jul, [place] [id number] [place] [address] 80150- 4120 Jul, DM neuro manif type II E11.49 and Ulcer of right foot, unspecified ulcer stage L97.519 [place] [id number] [place] [address] 55637- 0062 Jun, [place] [id number] [place] [address] 98021- 3653 Jun, [place] [id number] [place] [address] 56181- 2903 May, Type 2 diabetes mellitus with other diabetic neurological complication E11.49 ; GERD (gastroesophageal reflux disease) K21.9 and PAD ( peripheral artery disease) I73.9 [place] [id number] [place] [address] 14787- 2155 May, Decubital ulcer L89.90 ; Diabetes E11.9 and GERD ( gastroesophageal reflux disease) K21.9 [place] [address] [address]- 2625 May, [facility] [id number] [place] [address] 26972- 9697 Apr, [facility] [address], [place] [address]- 9827 Mar, [facility] [id number] [place] [address] 84355- 2978 Mar, [facility] [id number] [place] [address] 87370- 2089 Feb, [facility] [id number] [place] [address] 04750- 0149 Feb, [facility] [id number] [place] [address] 07849- 8054 Jan, [facility] [id number] [place] [address] 50991- 0884 Jan, HTN (hypertension) I10 [facility] [id number] [place] [address] 27902- 8507 Jan, [facility] [id number] [place] [address] 37545- 9823 Dec, Back pain M54.9 [facility] [id number] [place] [address] 87865- 1844 Dec, Back pain M54.9 [facility] [id number] [place] [address] 04931 -5739 Dec, Encounter for immunization Z23 and Puncture wound of right foot, initial encounter S91.331A [facility] [id number] [place] [address] 25292- 0240 Dec, [facility] [id number] [place] [address] 67411- 2077 Nov, [facility] [id number] [place] [address] 19305- 1601 Nov, COPD (chronic obstructive pulmonary disease) J44.9 [facility] [id number] [place] [address] 61209- 8803 Nov, [facility] [id number] [place] [address] 36038- 5771 Oct, [facility] [id number] [place] [address] 88103- 9151 Oct, [facility] [address] 63088- 8039 September, Onychomycosis B35.1 and DM neuro manif type II E11.49 [place] [id number] [place] [address] 02695- 8366 September, [facility] [id number] [place] [address] 62010- 1540 Aug, [facility] [id number] [place] [address] 17349- 2418 Jul, Sinusitis, unspecified chronicity, unspecified location J32.9 and Cough R05 [place] [id number] [place] [address] 74697- 7378 Jul, Back pain M54.9 [facility] [id number] [place] [address] 71708- 6548 14 Jun, 2016 Back pain M54.9 [facility] [id number] [place] [address] 06135- 6904 06 Jun, 2016 COPD (chronic obstructive pulmonary disease) J44.9 [facility] [id number] [place] [address] 88428- 7196 May, [facility] [id number] [place] [address] 58015- 9266 May, [facility] [id number] [place] [address] 06743- 3762 May, Back pain M54.9 [facility] [address], [place] [address]- 3891 16 May, 2016 [facility] [id number] [place] [address] 17668- 4292 13 May, 2016 [facility] [id number] [place] [address] 41733- 2236 May, Diabetes E11.9 [facility] [id number] [place] [address] 28645- 1299 11 May, 2016 Diabetes E11.9 ; GERD [...] Need for hepatitis C screening test Z11.59 [facility] [id number] [place] [address] 32649- 8170 May, HTN (hypertension) I10 [facility] [id number] [place] [address] 36165- 3887 Apr, [facility] [address] [id number], [place] [address]- 1596 Apr, [facility] [id number], [place] [address]- 6091 Apr, [facility] [address] [address]- 1060 Apr, [facility] [id number] [place] [address] 85850- 4716 Apr, [facility] [address], [place] [address]- 0476 Mar, [facility] [id number] [place] [address] 50974- 6936 Mar, [facility] [id number] [place] [address] 35396- 4477 Mar, [facility] [id number] [place] [address] 46864- 3105 Mar, [facility] [address] 02401- 9105 Mar, Dental examination Z01.20 [facility] [address] 83140- 2315 Feb, [facility] [address] 66953- 5437 Feb, [facility] [address] 08781- 1107 Feb, Back pain M54.9 [place] [address] 44202- 0398 Jan, [facility] [address] 35927- 1652 Jan, [facility] [address] 31596- 2213 Dec, Diabetes E11.9 ; GERD (gastroesophageal reflux disease) K21.9 ; ED (erectile dysfunction) N52.9 ; HTN (hypertension) I10 ; Insomnia G47.00 ; COPD (chronic obstructive pulmonary disease) J44.9 ; Neuropathy G62.9 and Bipolar depression F31.30 [facility] [id number] [place] [address] 60881- 6994 Dec, Type 2 diabetes mellitus with other diabetic neurological complication E11.49 and Onychomycosis B35.1 [facility] [id number] [place] [address] 30191- 1764 Dec, [facility] [id number] [place] [address] 63049- 7928 Dec, [facility] [address] [place] [address]- 5453 Dec, [facility] [address] [facility] [id number], [place] [address]- 6716 Dec, [facility] [address] [facility] [id number], [place] [address]- 4275 Nov, [facility] [address] [facility] [id number], [place] [address]- 7902 Nov, [facility] [address] [facility] [id number], [place] [address]- 8409 Oct, [facility] [address] [facility] [id number], [place] [address]- 6428 Oct, [facility] [address] [facility] [id number] [place] [address]- 3774 Oct, Back pain M54.9 [facility] [address], [place] [address]- 8525 Oct, [facility] [address] [facility] [id number], [place] [address]- 7879 Oct, [facility] [address], [place] [address]- 1085 Oct, [facility] [id number], [place] [address]- 1724 Oct, HTN (hypertension) I10 [facility] [address], [place] [address]- 9218 Oct, Back pain M54.9 [facility] [address] [facility] [id number], [place] [address]- 6667 Oct, Chronic pain syndrome G89.4 [facility] [id number], [place] [address]- 4793 September, Back pain M54.9 [facility] [address] [facility] [id number], [place] [address]- 2825 September, HTN (hypertension) I10 [facility] [id number], [place] [address]- 0416 29 Aug, 2015 Porokeratosis Q82.8 ; Onychomycosis B35.1 and Type 2 diabetes mellitus with other diabetic neurological complication E11.49 [facility] [id number] [place] [address] 06740- 6178 Aug, GERD (gastroesophageal reflux disease) K21.9 ; Diabetes E11.9 ; HTN (hypertension) I10 ; Insomnia G47.00 ; Restless legs syndrome G25.81 ; COPD (chronic obstructive pulmonary disease) J44.9 ; Back pain M54.9 and Bipolar 1 disorder F31.9 [facility] [id number] [place] [address] 69864- 8054 Aug, [facility] [id number] [place] [address] 20389- 3065 Aug, [facility] [id number] [place] [address] 24445- 4585 Aug, [facility] [id number] [place] [address] 66593- 0864 Aug, [facility] [id number] [place] [address] 87258- 3012 Jul, [facility] [address], [place] [address]- 4636 31 Jul, 2015 [facility] [id number] [place] [address] 98031- 9905 30 Jul, 2015 [facility] [id number] [place] [address] 14275- 1558 16 Jul, 2015 [facility] [id number] [place] [address] 83153- 3200 15 Jul, 2015 [facility] [address], [place] [address]- 5479 03 Jul, 2015 [facility] [id number] [place] [address] 47238- 1046 17 Jun, 2015 Decubital ulcer L89.90 ; Diabetes E11.9 ; Back pain M54.9 ; HTN (hypertension) I10 and COPD (chronic obstructive pulmonary disease) J44.9 [facility] [address], [place] [address]- 8880 Jun, [facility] [id number] [place] [address] 47820- 2568 Jun, [facility] [id number] [place] [address] 62786- 2024 Jun, [facility] [id number] [place] [address] 64316- 4162 Jun, [facility] [id number] [place] [address] 54444- 3559 Jun, Diabetes E11.9 ; Insomnia G47.00 ; Decubital ulcer L89.90 ; GERD (gastroesophageal reflux disease) K21.9 ; Back pain M54.9 ; Superficial fungus infection of skin B36.9 and HTN (hypertension) I10 [address] [id number] [address] 02 Jun, 2015 Dental examination Z01.20 [facility] [address], [place] [address]- 1370 May, [facility] [id number] [place] [address] 31592- 8675 May, [facility] [id number] [place] [address] 26431- 6863 May, [facility] [id number] [place] [address] 14871- 5759 May, Diabetes E11.9 ; HTN (hypertension) I10 and Decubital ulcer L89.90 [facility] [address], [place] [address]- 2452 May, HTN (hypertension) I10 ; Decubital ulcer L89.90 and Diabetes E11.9 [facility] [id number] [place] [address] 28478- 7406 Apr, Diabetes E11.9 ; GERD (gastroesophageal reflux disease) K21.9 ; Back pain M54.9 ; HTN (hypertension) I10 ; Restless legs syndrome G25.81 and Decubital ulcer L89.90 [place] [address] 45742- 5149 Apr, [place] [address] 80306- 0112 Apr, Diabetes E11.9 ; HTN (hypertension) I10 ; Restless legs syndrome G25.81 ; GERD (gastroesophageal reflux disease) K21.9 and COPD ( chronic obstructive pulmonary disease) J44.9 [place] [address] 83603- 4622 Mar, [place] [address] 65458- 7714 Mar, [place] [address] 40915- 2750 Mar, Diabetes E11.9 ; Abscess L02.91 and Restless legs syndrome G25.81 [place] [address] 65477- 4058 Mar, [place] [address] 58929- 1378 Feb, GERD (gastroesophageal reflux disease) K21.9 ; Back pain M54.9 ; ED (erectile dysfunction) N52.9 ; Diabetes E11.9 ; HTN (hypertension) I10 and Insomnia G47.00 [place] [address] 36704- 1599 Feb, [place] [address] 03923- 8645 Feb, [place] [address] [place] [address]- 1593 Jan, [facility] [id number] [place] [address] 79129- 8812 Jan, Diabetes 250.00 ; Nondependent cannabis abuse, continuous 305.21 ; Cough 786.2 ; Schizoaffective disorder, unspecified 295.70 ; Sciatica 724.3 ; Other, mixed, or unspecified nondependent drug abuse, unspecified 305.90 ; Chronic pain 338.29 ; GERD (gastroesophageal reflux disease) 530.81 and HTN (hypertension) 401.9 [facility] [id number] [place] [address] 65044- 3998 Jan, [facility] [address] 64324- 2551 Jan, [place] [id number] [place] [address] 38134- 8616 Jan, Chronic pain associated with significant psychosocial dysfunction 338.4 ; Diabetes mellitus without mention of complication, type I [ juvenile type], uncontrolled 250.03 ; Benign essential hypertension 401.1 ; Schizoaffective disorder, unspecified 295.70 ; Wheezing 786.07 ; Ear ache 388.70 ; Cough 786.2 ; Sciatica 724.3 and Foot pain, bilateral 729.5 [facility] [id number] [place] [address] 76443- 9210 Dec, [facility] [id number] [place] [address] 38612- 5080 Dec, [facility] [id number] [place] [address] 83549- 9470 Dec, [place] [id number] [place] [address] 49348- 3974 Dec, [facility] [id number] [place] [address] 19353- 5852 Dec, [facility] [id number] [place] [address] 07063- 7298 Nov, Elevated liver enzymes 790.5 [facility] [address], [place] [address]- 4031 Nov, [facility] [id number] [place] [address] 78302- 8680 Nov, [facility] [id number] [place] [address] 89781- 6578 Nov, [facility] [id number] [place] [address] 80978- 6232 Nov, Benign essential hypertension 401.1 ; Diabetes mellitus without mention of complication, type I [juvenile type], uncontrolled 250.03 and Nondependent cannabis abuse, continuous 305.21 [facility] [id number] [place] [address] 20612- 7272 Oct, Cellulitis 682.9 and Benign essential hypertension 401.1 [facility] [id number] [place] [address] 44440- 8504 Oct, [facility] [id number] [place] [address] 82983- 5763 September, [facility] [id number] [place] [address] 58693- 6884 September, [facility] [address] [address] Aug, [facility] [id number] [address] 28 Aug, 2014 [facility] [address] [address] Aug, [facility] [id number] [place] [address]17- 1320 Aug, [facility] [address] [address] Jul, [facility] [id number] [place] [address] Jul, [facility] [place] [facility] [address] [id number] [place] [address]166 Jul, [facility] [place] [facility] [address] [id number] [place] [address]- [address]45 Jul, [facility] [place] [facility] [address] [id number] [place] [address]- 0984 Jul, [facility] [place] [facility] [address] [id number] [place] [address]- 3472 Jul, [facility] [place] [facility] [address] [id number] [place] [address]- 0752 Jun, [facility] [place] [facility] [address] [id number] [place] [address]- 7853 Jun, [facility] [place] [facility] [address] [id number] [place] [address]- 5214 Jun, [facility] [place] [facility] [address] [id number] [place] [address]- 2889 Jun, [facility] [place] [facility] [address] [id number] [place] [address]- 5414 Jun, [facility] [place] [facility] [address] [id number] [place] [address]- 3002 May, [facility] [place] [facility] [address] [id number] [place] [address]- 6411 May, [facility] [place] [facility] [address] [id number] [place] [address]- 7100 May, [facility] [place] [facility] [address] [id number] [place] [address]- 8905 May, [facility] [place] [facility] [address] [id number] [place] [address]- 2467 May, [facility] [place] [facility] [address] [id number] [place] [address]- 8202 May, [facility] [place] [facility] [address] [id number] [place] [address] May, [facility] [address] [id number] [place] [address]- 6237 May, [facility] [place] [facility] [address] [id number] [place] [address]- 8242 Apr, [facility] [place] [facility] [address] [id number] [place] [address] Apr, [facility] [place] [facility] [address] [id number] [place] [address]- 9347 Apr, [facility] [place] [facility] [address] [id number] [place] [address] Apr, [facility] [place] [facility] [address] [id number] [place] [address] Mar, [facility] [place] [facility] [address] [id number] [place] [address] Mar, [facility] [place] [facility] [address] [id number] [place] [address] Mar, [facility] [place] [facility] [address] [id number] [place] [address] Mar, [facility] [place] [facility] [address] [id number] [place] [address] Feb, [facility] [place] [facility] [address] [id number] [place] [address] Feb, [facility] [place] [facility] [address] [id number] [place] [address] Feb, [facility] [place] [facility] [address] [id number] [place] [address] Feb, [facility] [place] [facility] [address] [id number] [place] [address] Feb, [facility] [place] [facility] [address] [id number] [place] [address] Feb, [facility] [place] [facility] [address] [id number] [place] [address] Jan, [facility] [place] [facility] [address] [id number] [place] [address] Jan, [facility] [place] [facility] [address] [id number] [place] [address] Jan, [facility] [place] [facility] [address] [id number] [place] [address] Jan, [facility] [place] [facility] [address] [id number] [place] [address] Dec, [facility] [place] [facility] [address] [id number] [place] [address] Dec, [facility] [place] [facility] [address] [id number] [place] [address] Dec, [facility] [place] [facility] [address] [id number] [place] [address] Dec, [facility] [place] [facility] [address] [id number] [place] [address] Dec, [facility] [place] [facility] [address] [id number] [place] [address] Dec, [facility] [place] [facility] [address] [id number] [place] [address] Oct, [facility] [place] [facility] [address] [id number] [address] Oct, [facility] [place] [facility] [address] [id number] [place] [address] September, [facility] [place] [facility] [address] [id number] [place] [address] September, [facility] [place] [facility] [address] [id number] [place] [address] September, [facility] [place] [facility] [address] [id number], [place] [address] September, [facility] [address] [id number] [place] [address] September, [facility] [place] [facility] [address] [id number] [place] [address] September, [facility] [place] [facility] [address] [id number] [place] [address] Aug, [facility] [place] [facility] [address] [id number] [place] [address] Aug, [facility] [place] [facility] [address] [id number] [place] [address] Aug, [facility] [place] [facility] [address] [id number] [place] [address] Aug, [facility] [address] [id number] [place] [address] Jul, [facility] [place] [facility] [address] [id number] [place] [address] Jul, [facility] [place] [facility] [address] [id number] [place] [address] Jun, [facility] [place] [facility] [address] [id number] [place] [address] Jun, [facility] [place] [facility] [address] [id number] [place] [address] May, [facility] [place] [facility] [address] [id number] [place] [address] May, [facility] [place] [facility] [address] [id number] [place] [address] Jan, [facility] [place] [facility] [address] [id number] [place] [address] Dec, [facility] [place] [facility] [address] [id number] [place] [address] Jun, [facility] [place] [facility] [address] [id number] [place] [address] May, [facility] [place] [facility] [address] [id number] [place] [address] Nov, [facility] [place] [facility] [address] [id number] [place] [address] September, [facility] [place] [facility] [address] [id number] [place] [address] Aug, [facility] [place] [facility] [address] [id number] [place] [address] 9699 Aug, [facility] [place] [facility] [address] [id number] [place] [address]- 1410 Aug, [facility] [place] [facility] [address] [id number] [place] [address] 47[address] Aug, [facility] [place] [facility] [address] [id number] [place] [address] Nov, [facility] [place] [facility] [address] [id number] [place] [address]97 Oct, [facility] [place] [facility] [address] [id number] [place] [address] Jul, [facility] [place] [facility] [address] [id number] [place] [address]- [address] Feb, [facility] [place] [facility] [address] [id number] [place] [address] 8077 Feb, [facility] [place] [facility] [address] [id number] [place] [address] Apr, [facility] [place] [facility] [address] [id number] [place] [address] Apr, [facility] [place] [facility] [address] [id number] [place] [address] Feb, [facility] [place] [facility] [address] [id number] [place] [address] Feb, [facility] [address] [facility] [id number] [place] [id number] Jul, IMMUNIZATIONS No Known Immunizations SOCIAL HISTORY Never Assessed REASON FOR VISIT MTM (Medication Therapy Management) PLAN OF CARE VITAL SIGNS MEDICATIONS Unknown [...]
--- OUTSIDE RECORDS SUMMARY | 2018-09-15 22:53 | XMS REPORT ---
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 Name Role Phone YVES BLEVINS Unavailable PROBLEMS Type Condition ICD9-CM Code GKX00-LG Code Onset Dates Condition Status SNOMED Code Problem HTN (hypertension) I10 Active 62405153 Problem Restless legs syndrome G25.81 Active 875048828 Problem GERD (gastroesophageal reflux disease) K21.9 Active 276604503 Problem ED (erectile dysfunction) N52.9 Active 555025147 Problem PAD (peripheral artery disease) I73.9 Active 680435282 Problem Ulcer of right foot, unspecified ulcer stage L97.519 Active 44325735 Problem 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 731657895 Problem COPD (chronic obstructive pulmonary disease) J44.9 Active 14068370 Problem DM neuro manif type II E11.49 Active 34326138 Problem Sinusitis, unspecified chronicity, unspecified location J32.9 Active 73031911 ALLERGIES No Information ENCOUNTERS Encounter Location Date Diagnosis [facility] [id number] [place] [address]81- 5571 Nov, [facility] [id number] [place] [address] 45076- 8541 Nov, [facility] [id number] [place] [address] 63484- 6533 Nov, Shortness of breath R06.02 [facility] [id number] [place] [address] 81503- 4882 Nov, [facility] [id number] [place] [address] 18340- 6650 Oct, [facility] [id number] [place] [address] 11289- 5274 Oct, [facility] [address] [facility] [id number] [place] [address]- [address] Oct, [facility] [address] [facility] [id number] [place] [address] 6802 Oct, [facility] [address] [id number] [place] [address]- 7326 Oct, [facility] [id number] [place] [address], [place] [address]- 0066 Oct, Back pain M54.9 [facility] [id number] [place] [address], [place] [address]- 1524 Oct, Back pain M54.9 [facility] [address] [id number] [place] [address]- 2577 Oct, [facility] [id number] [place] [address] 92376- 3775 September, [facility] [address] [address] 8134 September, [facility] [address] [address] 1705 September, [facility] [address], [place] [address]- 4734 September, Type 2 diabetes mellitus with other diabetic neurological complication E11.49 and Hypotension, unspecified hypotension type I95.9 [facility] [address], [place] [address] 4621 September, [facility] [address] [id number] [address] 4311 September, [facility] [address], [place] [address]- 5469 September, Back pain M54.9 [facility] [id number] [place] [address]- 5580 Aug, [facility] [id number] [place] [address] 79381- 8782 Aug, Acute cystitis with hematuria N30.01 ; Ulcer of right foot, unspecified ulcer stage L97.519 ; HTN (hypertension) I10 ; COPD (chronic obstructive pulmonary disease) J44.9 and DM neuro manif type II E11.49 [facility] [id number] [place] [address] 87038- 7767 Aug, Back pain M54.9 [facility] [id number] [place] [address] 43822- 9271 Jul, [facility] [address] 71071- 2859 Jul, Back pain M54.9 [facility] [id number] [place] [address] 01605- 9817 Jul, [facility] [address] 71469- 8468 Jul, DM neuro manif type II E11.49 and Ulcer of right foot, unspecified ulcer stage L97.519 [facility] [id number] [place] [address] 19624- 5437 Jun, [facility] [id number] [place] [address] 21703- 7916 Jun, [facility] [id number] [place] [address] 90100- 1843 May, Type 2 diabetes mellitus with other diabetic neurological complication E11.49 ; GERD (gastroesophageal reflux disease) K21.9 and PAD ( peripheral artery disease) I73.9 [facility] [id number] [place] [address] 83511- 6309 May, Decubital ulcer L89.90 ; Diabetes E11.9 and GERD ( gastroesophageal reflux disease) K21.9 [facility] [id number] [place] [address] 25341- 2034 May, [facility] [id number] [address]- 3202 Apr, [facility] [id number] [place] [address] 44513- 3014 Mar, [facility] [id number] [place] [address] 84531- 3635 Mar, [facility] [id number] [place] [address] 10477- 9708 Feb, [facility] [id number] [place] [address] 16059- 4449 Feb, [facility] [id number] [place] [address] 14654- 2342 Jan, [facility] [id number] [place] [address] 29610- 1944 Jan, HTN (hypertension) I10 [facility] [id number] [place] [address] 70570- 1647 Jan, [facility] [id number] [place] [address] 70420- 8612 Dec, Back pain M54.9 [facility] [id number] [place] [address] 79377- 9377 Dec, Back pain M54.9 [facility] [id number] [place] [address] 90111 -1636 Dec, Encounter for immunization Z23 and Puncture wound of right foot, initial encounter S91.331A [facility] [id number] [address]- 7293 Dec, [facility] [id number] [place] [address] 82566- 4087 Nov, [facility] [id number] [place] [address] 04933- 6944 Nov, COPD (chronic obstructive pulmonary disease) J44.9 [facility] [id number] [address]- 7876 Nov, [facility] [address], [place] [address]- 8998 Oct, [facility] [address], [place] [address]- 6185 Oct, [facility] [id number] [place] [address] 58438- 5762 September, Onychomycosis B35.1 and DM neuro manif type II E11.49 [facility] [id number] [place] [address] 96681- 2156 September, [facility] [id number] [place] [address] 75458- 5332 Aug, [facility] [id number] [place] [address] 06837- 7477 Jul, Sinusitis, unspecified chronicity, unspecified location J32.[address] [facility] [address], [place] [address]- 8863 Jul, Back pain M54.9 [facility] [id number] [place] [address] 46824- 7663 14 Jun, [address] [facility] [address], [place] [address]- 6267 Jun, COPD (chronic obstructive pulmonary disease) J44.9 [facility] [address], [place] [address]- 3587 May, [facility] [address], [place] [address]- 4128 May, [facility] [address], [place] [address]- 3311 May, Back pain M54.9 [facility] [address], [place] [address]- 6685 May, [facility] [address], [place] [address]- 0904 13 May, 2016 [facility] [id number] [place] [address] 99388- 4677 12 May, [address] [facility] [id number] [place] [address] 71129- 2853 11 May, 2016 Diabetes E11.9 ; GERD [...] test Z11.59 [facility] [id number] [place] [address] 41207- 0315 04 May, 2016 HTN (hypertension) I10 [facility] [id number] [place] [address] 34374- 7926 Apr, [facility] [id number] [place] [address] 93578- 1454 Apr, [facility] [id number] [place] [address] 26671- 9514 Apr, [facility] [id number] [place] [address] 18750- 2046 Apr, [facility] [id number] [place] [address] 59408- 5496 Apr, [facility] [id number] [place] [address] 98256- 9349 Mar, [facility] [id number], [place] [address]- 6408 Mar, [facility] [id number] [place] [address] 09745- 7381 Mar, [facility] [id number] [place] [address] 62112- 2499 Mar, [facility] [address] 18379- 3304 Mar, Dental examination Z01.20 [facility] [id number] [place] [address] 07364- 4775 Feb, [facility] [address] 22849- 6458 Feb, [facility] [address] 48924- 9638 Feb, Back pain M54.9 [facility] [address] 56252- 6264 Jan, [facility] [id number] [place] [address] 17400- 0814 Jan, [facility] [id number] [place] [address] 59600- 6839 Dec, Diabetes E11.9 ; GERD (gastroesophageal reflux disease) K21.9 ; ED (erectile dysfunction) N52.9 ; HTN (hypertension) I10 ; Insomnia G47.00 ; COPD (chronic obstructive pulmonary disease) J44.9 ; Neuropathy G62.9 [address] F[address].30 [facility] [id number] [place] [address] 25560- 3406 Dec, Type 2 diabetes mellitus with other diabetic neurological complication E11.[address] [facility] [id number] [place] [address] 46122- 3334 Dec, [facility] [id number] [place] [address] 43116- 2999 Dec, [facility] [id number] [place] [address] 74441- 5339 Dec, [facility] [id number] [place] [address] 80497- 9679 Dec, [facility] [address] [facility] [id number] [address]- 3683 Nov, [facility] [id number], [place] [address]- 4061 Nov, [facility] [address], [place] [address]- 0157 Oct, [facility] [id number] [place] [address] 74432- 8547 Oct, [facility] [id number] [place] [address] 91949- 6681 Oct, Back pain M54.9 [facility] [address], [place] [address]- 4227 Oct, [facility] [id number] [place] [address] 42817- 4847 Oct, [facility] [address], [place] [address]- 9489 Oct, [facility] [address] [place] [address] 20646- 7259 Oct, HTN (hypertension) I10 [facility] [address], [place] [address]- 5207 Oct, Back pain M54.9 [facility] [address], [place] [address]- 3562 Oct, Chronic pain syndrome G89.4 [facility] [id number], [place] [address]- 0741 September, Back pain M54.9 [facility] [id number], [place] [address]- 9261 September, HTN (hypertension) I10 [facility] [address], [place] [address]- 1331 Aug, Porokeratosis Q82.8 ; Onychomycosis B35.1 and Type 2 diabetes mellitus with other diabetic neurological complication E11.49 [facility] [id number] [place] [address] 71720- 9140 Aug, GERD (gastroesophageal reflux disease) K21.9 ; Diabetes E11.9 ; HTN (hypertension) I10 ; Insomnia G47.00 ; Restless legs syndrome G25.81 ; COPD (chronic obstructive pulmonary disease) J44.9 ; Back pain M54.9 and Bipolar [address] [facility] [id number] [place] [address] 04012- 3360 Aug, [facility] [id number] [place] [address] 72374- 0111 Aug, [facility] [id number] [place] [address] 00326- 8258 Aug, [facility] [id number] [place] [address] 34541- 1313 Aug, [facility] [id number] [place] [address] 46893- 6290 Jul, [facility] [id number] [place] [address] 91426- 5185 Jul, [facility] [id number] [place] [address] 47570- 6283 30 Jul, 2015 [facility] [id number] [place] [address] 71946- 8413 16 Jul, 2015 [facility] [address], [place] [address]- 2536 15 Jul, 2015 [facility] [id number] [place] [address] 64437- 2485 Jul, [facility] [address], [place] [address]- 3652 17 Jun, 2015 Decubital ulcer L89.90 ; Diabetes E11.9 ; Back pain M54.9 ; HTN (hypertension) I10 and COPD (chronic obstructive pulmonary disease) J44.9 [facility] [address], [place] [address]- 8628 Jun, [facility] [id number] [place] [address] 61299- 8819 Jun, [facility] [id number] [place] [address] 89548- 2239 Jun, [facility] [id number] [place] [address] 05356- 6986 Jun, [facility] [id number] [place] [address] 15735- 0302 Jun, Diabetes E11.9 ; Insomnia G47.00 ; Decubital ulcer L89.90 ; GERD (gastroesophageal reflux disease) K21.9 ; Back pain M54.9 ; Superficial fungus infection of skin B36.9 and HTN (hypertension) I10 [address] [id number] [id number] Jun, Dental examination Z01.20 [facility] [id number] [place] [address] 31281- 4609 May, [facility] [id number] [place] [address] 48722- 6274 May, [facility] [id number] [place] [address] 74248- 7517 May, [facility] [id number] [place] [address] 76436- 1475 May, Diabetes E11.9 ; HTN (hypertension) I10 and Decubital ulcer L89.90 [facility] [id number] [place] [address] 37410- 8944 May, HTN (hypertension) I10 ; Decubital ulcer L89.90 and Diabetes E11.9 [facility] [id number] [place] [address] 95506- 1588 Apr, Diabetes E11.9 ; GERD (gastroesophageal reflux disease) K21.9 ; Back pain M54.9 ; HTN (hypertension) I10 ; Restless legs syndrome G25.81 and Decubital ulcer L89.90 [facility] [id number] [place] [address] 92985- 1138 Apr, [facility] [address] 64766- 6273 Apr, Diabetes E11.9 ; HTN (hypertension) I10 ; Restless legs syndrome G25.81 ; GERD (gastroesophageal reflux disease) K21.9 and COPD ( chronic obstructive pulmonary disease) J44.9 [facility] [address] 47313- 4813 Mar, [facility] [address] 43006- 2006 Mar, [facility] [address] 72302- 8323 Mar, Diabetes E11.9 ; Abscess L02.91 and Restless legs syndrome G25.81 [facility] [address] 29934- 1242 Mar, [facility] [address] 87474- 1023 Feb, GERD (gastroesophageal reflux disease) K21.9 ; Back pain M54.9 ; ED (erectile dysfunction) N52.9 ; Diabetes E11.9 ; HTN (hypertension) I10 [address] G47.00 [facility] [id number] [place] [address] 26109- 8411 Feb, [facility] [address] 85786- 4125 Feb, [facility] [address] 32140- 4062 Jan, [facility] [address] 96556- 9399 Jan, Diabetes 250.00 ; Nondependent cannabis abuse, continuous 305.21 ; Cough 786.2 ; Schizoaffective disorder, unspecified 295.70 ; Sciatica 724.3 ; Other, mixed, or unspecified nondependent drug abuse, unspecified 305.90 ; Chronic pain 338.29 ; GERD (gastroesophageal reflux disease) 530.81 and HTN (hypertension) 401.9 [facility] [address] 85353- 9859 Jan, [facility] [address] 12224- 7553 Jan, [facility] [address] 72321- 4207 Jan, Chronic pain associated with significant psychosocial dysfunction 338.4 ; Diabetes mellitus without mention of complication, type I [ juvenile type], uncontrolled 250.03 ; Benign essential hypertension 401.1 ; Schizoaffective disorder, unspecified 295.70 ; Wheezing 786.07 ; Ear ache 388.70 ; Cough 786.2 ; Sciatica 724.3 and Foot pain, bilateral 729.5 [facility] [id number] [place] [address] 73481- 3773 Dec, [facility] [id number] [place] [address] 28028- 1019 Dec, [facility] [id number] [place] [address] 98753- 3758 Dec, [facility] [id number] [place] [address] 74483- 2269 Dec, [facility] [address] 97612- 2628 Dec, [facility] [address] 13637- 1255 Nov, Elevated liver enzymes 790.5 [facility] [address] 83728- 7499 Nov, [facility] [address], [place] [address]- 6703 Nov, [facility] [id number] [place] [address] 59369- 9808 Nov, [facility] [address], [place] [address]- 1111 Nov, Benign essential hypertension 401.1 ; Diabetes mellitus without mention of complication, type I [juvenile type], uncontrolled 250.03 and Nondependent cannabis abuse, continuous 305.21 [facility] [address], [place] [address]- 7468 Oct, Cellulitis 682.9 and Benign essential hypertension 401.1 [facility] [address], [place] [address]- 9205 Oct, [facility] [id number] [place] [address] 10748- 3474 September, [facility] [address], [place] [address]- 4053 September, [facility] [address], [place] [address]- 1346 Aug, [facility] [address], [place] [address]- 4195 28 Aug, 2014 [facility] [address], [place] [address]- 6711 Aug, [facility] [address], [place] [address]- 5406 Aug, [facility] [address], [place] [address]- 6862 Jul, [facility] [address], [place] [address]- 3213 Jul, [facility] [address], [place] [address]- 6082 Jul, [facility] [place] [facility] [address] [id number] [place] [address]- 5686 Jul, [facility] [place] [facility] [address] [id number] [place] [address]- 0689 Jul, [facility] [place] [facility] [address] [id number] [place] [address]- 2157 Jul, [facility] [place] [facility] [address] [id number] [place] [address]- 1278 Jun, [facility] [place] [facility] [address] [id number] [place] [address]- 4626 Jun, 2014 [facility] [place] [facility] [address] [id number] [place] [address]- 1937 Jun, [facility] [place] [facility] [address] [id number] [place] [address]- 8281 Jun, [facility] [place] [facility] [address] [id number] [place] [address]- 0898 Jun, [facility] [place] [facility] [address] [id number] [place] [address]- 3268 May, [facility] [place] [facility] [address] [id number] [place] [address]- 2556 May, [facility] [place] [facility] [address] [id number] [place] [address]- 4290 May, [facility] [place] [facility] [address] [id number] [place] [address]- 6774 May, [facility] [place] [facility] [address] [id number] [place] [address]- 9620 May, [facility] [place] [facility] [address] [id number] [place] [address]- 7746 May, [facility] [place] [facility] [address] [id number] [place] [address]- 6490 May, [facility] [place] [facility] [address] [id number], [place] [address]- 5596 May, [facility] [place] [facility] [address] [id number] [place] [address] Apr, [facility] [place] [facility] [address] [id number] [place] [address] Apr, [facility] [place] [facility] [address] [facility] [id number] [place] [address] Apr, [facility] [place] [facility] [address] [id number] [place] [address] Apr, [facility] [place] [facility] [address] [facility] [id number] [place] [address] Mar, [facility] [place] [facility] [address] [id number] [place] [address] Mar, [facility] [place] [facility] [address] [facility] [id number], [place] [address] Mar, [facility] [place] [facility] [address] [id number] [place] [address] Mar, [facility] [place] [facility] [address] [facility] [id number], [place] [address] Feb, [facility] [place] [facility] [address] [facility] [id number], [place] [address] Feb, [facility] [place] [facility] [address] [facility] [id number], [place] [address] Feb, [facility] [place] [facility] [address] [facility] [id number], [place] [address] Feb, [facility] [place] [facility] [address] [id number][place] [address] Feb, [facility] [place] [facility] [address] [facility] [id number][place] [address] [address] Feb, [facility] [place] [facility] [address] [facility] [id number], [place] [address] Jan, [facility] [place] [facility] [address] [id number] [place] [address] Jan, [facility] [place] [facility] [address] [id number] [place] [address] Jan, [facility] [place] [facility] [address] [id number] [place] [address] Jan, [facility] [place] [facility] [address] [id number] [place] [address] Dec, [facility] [place] [facility] [address] [id number] [place] [address] Dec, [facility] [place] [facility] [address] [id number] [place] [address] Dec, [facility] [place] [facility] [address] [id number] [place] [address] Dec, [facility] [place] [facility] [address] [id number] [place] [address] Dec, [facility] [place] [facility] [address] [id number] [place] [address] Dec, [facility] [place] [facility] [address] [id number] [place] [address] Oct, [facility] [place] [facility] [address] [id number] [place] [address] Oct, [facility] [place] [facility] [address] [id number] [place] [address] September, [facility] [place] [facility] [address] [id number] [place] [address] September, [facility] [place] [facility] [address] [id number] [place] [address] September, [facility] [place] [facility] [address] [id number] [place] [address] September, [facility] [place] [facility] [address] [id number] [place] [address] September, [facility] [place] [facility] [address] [id number] [place] [address] September, [facility] [place] [facility] [address] [id number] [place] [address] Aug, [facility] [place] [facility] [address] [id number] [place] [address] Aug, [facility] [place] [facility] [address] [id number] [place] [address] Aug, [facility] [place] [facility] [address] [id number] [place] [address] Aug, [facility] [place] [facility] [address] [id number] [place] [address] Jul, [facility] [place] [facility] [address] [id number] [place] [address] Jul, [facility] [place] [facility] [address] [id number] [place] [address] Jun, [facility] [place] [facility] [address] [id number] [place] [address] Jun, [facility] [place] [facility] [address] [id number] [place] [address] May, [facility] [place] [facility] [address] [id number] [place] [address] May, [facility] [place] [facility] [address] [id number] [place] [address] Jan, [facility] [place] [facility] [address] [id number] [place] [address] Dec, [facility] [place] [facility] [address] [id number] [place] [address] Jun, [facility] [place] [facility] [address] [id number] [place] [address] May, [facility] [place] [facility] [address] [id number] [place] [address] Nov, [facility] [address] [id number] [place] [address] September, [facility] [address] [id number] [place] [address] Aug, [facility] [address] [id number] [place] [address] Aug, [facility] [address] [id number] [place] [address] Aug, [facility] [address] [facility] [id number] [place] [address], [place] [address] Aug, [facility] [address] [facility] [id number] [place] [address] Nov, [facility] [address] [facility] [id number] [place] [address] Oct, [facility] [address] [facility] [id number] [place] [address] Jul, [facility] [address] [facility] [id number] [place] [address] Feb, [facility] [address] [facility] [id number] [place] [address] Feb, [facility] [address] [facility] [id number] [place] [address] Apr, [facility] [address] [facility] [id number] [place] [address] Apr, [facility] [address] [facility] [id number] [place] [address] Feb, [facility] [address] [facility] [id number] [place] [address] Feb, [facility] [address] [facility] [id number], [place] [address] Jul, IMMUNIZATIONS No Known Immunizations SOCIAL HISTORY Never Assessed REASON FOR VISIT Vicoprofen and Lyrica 06/26 PLAN OF CARE VITAL SIGNS MEDICATIONS Medication [...]
[2018-09-15 22:54] LABS: AMPHETAMINE SCREEN, URINE POSITIVE (NEGATIVE); BARBITURATE SCREEN URINE NEGATIVE (NEGATIVE); BENZODIAZEPINES SCREEN URINE NEGATIVE (NEGATIVE); CANNABINOID SCREEN, URINE POSITIVE (NEGATIVE); COCAINE SCREEN URINE NEGATIVE (NEGATIVE); METHADONE STAT NEGATIVE (NEGATIVE); METHAMPHETAMINE SCREEN URINE S POSITIVE (NEGATIVE); OPIATE SCREEN URINE POSITIVE (NEGATIVE); OXYCODONE STAT NEGATIVE (NEGATIVE); PROPOXYPHENE STAT NEGATIVE (NEGATIVE); TRICYCLIC ANTIDEPRESSANTS SCRE POSITIVE (NEGATIVE)
--- OUTSIDE RECORDS SUMMARY | 2018-09-15 22:56 | XMS REPORT ---
Author Author YVES BLEVINS [facility] Address [address] [place] [address] Care Team Providers Care Gi Technician Name Role Phone YVES BLEVINS Unavailable PROBLEMS Type Condition ICD9-CM Code TWJ02-LD Code Onset Dates Condition Status SNOMED Code Problem HTN (hypertension) I10 Active 99590221 Problem Restless legs syndrome G25.81 Active 999210349 Problem GERD (gastroesophageal reflux disease) K21.9 Active 750997080 Problem ED (erectile dysfunction) N52.9 Active 457366894 Problem PAD (peripheral artery disease) I73.9 Active 323423864 Problem Ulcer of right foot, unspecified ulcer stage L97.519 Active 28287419 Problem 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 640334704 Problem COPD (chronic obstructive pulmonary disease) J44.9 Active 16829435 Problem DM neuro manif type II E11.49 Active 96277915 Problem Sinusitis, unspecified chronicity, unspecified location J32.9 Active 18304188 ALLERGIES No Information ENCOUNTERS Encounter Location Date Diagnosis [facility] [id number] [place] [address] 26173- 0235 Nov, [facility] [id number] [place] [address] 89279- 9452 Oct, Back pain M54.9 [facility] [id number] [place] [address] 31983- 0144 Oct, [facility] [id number] [place] [address] 98968- 6478 September, [facility] [id number] [place] [address] 38284- 5529 September, [facility] [id number] [place] [address] 95368- 0872 September, [facility] [address], [place] [address] 8841 September, Type 2 diabetes mellitus with other diabetic neurological complication E11.49 and Hypotension, unspecified hypotension type I95.9 [facility] [address] [address] 3914 September, [facility] [id number] [place] [address] 82394- 9083 September, [facility] [id number] [place] [address] 30610- 6876 September, Back pain M54.9 [facility] [id number] [place] [address] 47567- 6095 Aug, [facility] [id number] [place] [address] 92817- 7607 Aug, Acute cystitis with hematuria N30.01 ; Ulcer of right foot, unspecified ulcer stage L97.519 ; HTN (hypertension) I10 ; COPD (chronic obstructive pulmonary disease) J44.9 and DM neuro manif type II E11.49 [facility] [id number] [place] [address] 08996- 5467 Aug, Back pain M54.9 [facility] [id number] [place] [address] 82009- 8588 Jul, [facility] [id number] [place] [address] 95169- 7337 Jul, Back pain M54.9 [facility] [id number] [place] [address] 50013- 7062 Jul, [facility] [id number] [place] [address] 85966- 3503 Jul, DM neuro manif type II E11.49 and Ulcer of right foot, unspecified ulcer stage L97.519 [facility] [id number] [place] [address] 84403- 0220 Jun, [facility] [id number] [place] [address] 44978- 7784 Jun, [facility] [address] 61817- 6476 May, Type 2 diabetes mellitus with other diabetic neurological complication E11.49 ; GERD (gastroesophageal reflux disease) K21.9 and PAD ( peripheral artery disease) I73.9 [facility] [address] 36831- 0852 May, Decubital ulcer L89.90 ; Diabetes E11.9 and GERD ( gastroesophageal reflux disease) K21.9 [facility] [address] 02170- 4790 May, [facility] [address] 64199- 0359 Apr, [facility] [address] 44863- 4432 Mar, [facility] [id number] [place] [address] 55643- 7584 Mar, [facility] [id number] [place] [address] 61865- 1045 Feb, [facility] [id number] [place] [address] 44646- 1133 Feb, [facility] [id number] [place] [address] 70475- 1354 Jan, [facility] [id number] [place] [address] 18822- 0834 Jan, HTN (hypertension) I10 [facility] [id number] [place] [address] 44385- 6964 Jan, [facility] [id number] [place] [address] 56698- 8142 Dec, Back pain M54.9 [facility] [address] [place] [address]- 7035 Dec, Back pain M54.9 [facility] [id number] [place] [address] 34145 -7378 Dec, Encounter for immunization Z23 and Puncture wound of right foot, initial encounter S91.331A [facility] [id number] [place] [address] 47648- 5478 Dec, [facility] [id number] [place] [address] 96877- 7888 Nov, [facility] [id number] [place] [address] 34863- 3009 Nov, COPD (chronic obstructive pulmonary disease) J44.9 [facility] [id number] [place] [address] 82260- 4457 Nov, [facility] [id number] [place] [address] 10130- 9817 Oct, [facility] [id number] [place] [address] 19126- 1821 Oct, [facility] [id number] [place] [address] 27395- 5258 September, Onychomycosis B35.1 and DM neuro manif type II E11.49 [facility] [id number] [place] [address] 06373- 4015 September, [facility] [id number] [place] [address] 83435- 9404 Aug, [facility] [id number] [place] [address] 83324- 4443 Jul, Sinusitis, unspecified chronicity, unspecified location J32.9 and Cough R05 [facility] [id number] [place] [address] 95000- 2514 Jul, Back pain M54.9 [facility] [id number] [place] [address] 14580- 0743 14 Jun, 2016 Back pain M54.9 [facility] [address] [place] [address] 16647- 8410 06 Jun, 2016 COPD (chronic obstructive pulmonary disease) J44.9 [facility] [address], [place] [address]- 6444 May, [facility] [id number] [place] [address] 70641- 9988 May, [facility] [id number] [place] [address] 39676- 3012 May, Back pain M54.9 [facility] [id number] [place] [address] 43001- 0798 May, [facility] [id number] [place] [address] 32898- 8376 May, [facility] [id number] [place] [address] 73037- 0064 May, Diabetes E11.9 [facility] [id number] [place] [address] 79530- 7535 May, Diabetes E11.9 ; GERD (gastroesophageal reflux [...] Need for hepatitis C screening test Z11.59 [facility] [id number] [place] [address] 93934- 1364 May, HTN (hypertension) I10 [facility] [address], [place] [address]- 5824 Apr, [facility] [id number] [place] [address] 43981- 4521 Apr, [facility] [id number] [place] [address] 64364- 5679 Apr, [facility] [id number] [place] [address] 66493- 1720 Apr, [facility] [id number] [place] [address] 44627- 1458 Apr, [facility] [id number] [place] [address] 65332- 0096 Mar, [facility] [id number] [place] [address] 08766- 4574 Mar, [facility] [id number] [place] [address] 93127- 8834 Mar, [facility] [id number] [place] [address] 00815- 0209 Mar, [facility] [id number] [place] [address] 92385- 9564 Mar, Dental examination Z01.20 [facility] [id number] [place] [address] 89772- 3482 Feb, [facility] [id number] [place] [address] 22648- 2168 Feb, [facility] [id number] [place] [address] 47735- 0712 Feb, Back pain M54.9 [facility] [id number] [place] [address] 29010- 6918 Jan, [facility] [id number] [place] [address] 07709- 3481 Jan, [facility] [id number] [place] [address] 34763- 7872 Dec, Diabetes E11.9 ; GERD (gastroesophageal reflux disease) K21.9 ; ED (erectile dysfunction) N52.9 ; HTN (hypertension) I10 ; Insomnia G47.00 ; COPD (chronic obstructive pulmonary disease) J44.9 ; Neuropathy G62.9 and Bipolar depression F31.30 [facility] [address] [address]- 1443 Dec, Type 2 diabetes mellitus with other diabetic neurological complication E11.49 and Onychomycosis B35.1 [facility] [id number] [address]- 0983 Dec, [facility] [id number] [place] [address], [place] [address]- 7537 Dec, [facility] [id number] [place] [address], [place] [address]- 3840 Dec, [facility] [id number] [place] [address], [place] [address]- 8732 Dec, [facility] [id number] [place] [address], [place] [address]- 2140 Nov, [facility] [id number] [place] [address]- 7616 Nov, [facility] [id number] [place] [address]- 6794 Oct, [facility] [address] [place] [address]- 7942 Oct, [facility] [address] [place] [address]- 9759 Oct, Back pain M54.9 [facility] [address] [place] [address]- 5070 Oct, [facility] [id number] [place] [address]- 1012 Oct, [facility] [address] [place] [address]- 1270 Oct, [facility] [address] [place] [address]- 3454 Oct, HTN (hypertension) I10 [facility] [id number] [place] [address] 41812- 6402 Oct, Back pain M54.9 [facility] [id number] [place] [address] 54026- 8209 Oct, Chronic pain syndrome G89.4 [facility] [id number] [place] [address] 26989- 8440 September, Back pain M54.9 [facility] [id number] [place] [address] 38303- 6601 September, HTN (hypertension) I10 [facility] [address] 54674- 7008 Aug, Porokeratosis Q82.8 ; Onychomycosis B35.1 and Type 2 diabetes mellitus with other diabetic neurological complication E11.49 [facility] [id number] [place] [address] 84786- 6660 Aug, GERD (gastroesophageal reflux disease) K21.9 ; Diabetes E11.9 ; HTN (hypertension) I10 ; Insomnia G47.00 ; Restless legs syndrome G25.81 ; COPD (chronic obstructive pulmonary disease) J44.9 ; Back pain M54.9 and Bipolar 1 disorder F31.9 [facility] [id number] [place] [address] 89869- 2321 Aug, [facility] [id number] [place] [address] 13237- 9914 Aug, [facility] [id number] [place] [address] 98392- 2216 Aug, [facility] [id number] [place] [address] 67242- 9875 Aug, [facility] [id number] [place] [address] 55660- 0886 Jul, [facility] [id number] [place] [address] 73795- 8485 31 Jul, 2015 [facility] [address] [place] [address] 77509- 7747 30 Jul, 2015 [facility] [id number] [place] [address] 34753- 5410 16 Jul, 2015 [facility] [id number] [place] [address] 99180- 3376 Jul, [facility] [id number] [place] [address] 75906- 5113 Jul, [facility] [id number] [place] [address] 34272- 2023 Jun, Decubital ulcer L89.90 ; Diabetes E11.9 ; Back pain M54.9 ; HTN (hypertension) I10 and COPD (chronic obstructive pulmonary disease) J44.9 [facility] [id number] [place] [address] 58714- 4413 Jun, [facility] [id number] [place] [address] 64874- 8418 Jun, [facility] [id number] [place] [address] 88631- 5234 Jun, [facility] [id number] [place] [address] 25080- 4027 Jun, [facility] [id number] [place] [address] 02780- 3518 Jun, Diabetes E11.9 ; Insomnia G47.00 ; Decubital ulcer L89.90 ; GERD (gastroesophageal reflux disease) K21.9 ; Back pain M54.9 ; Superficial fungus infection of skin B36.9 and HTN (hypertension) I10 [address] [id number] [id number] Jun, Dental examination Z01.20 [facility] [address], [place] [address]- 2326 May, [facility] [address], [place] [address]- 1056 May, [facility] [address], [place] [address]- 5014 May, [facility] [address], [place] [address]- 8854 May, Diabetes E11.9 ; HTN (hypertension) I10 and Decubital ulcer L89.90 [facility] [address] [address]- 6941 May, HTN (hypertension) I10 ; Decubital ulcer L89.90 and Diabetes E11.9 [facility] [address] [place] [address] 11418- 1536 30 Apr, 2015 Diabetes E11.9 ; GERD (gastroesophageal reflux disease) K21.9 ; Back pain M54.9 ; HTN (hypertension) I10 ; Restless legs syndrome G25.81 and Decubital ulcer L89.90 [facility] [address], [place] [address]- 4504 Apr, [facility] [id number] [place] [address] 72142- 8077 Apr, Diabetes E11.9 ; HTN (hypertension) I10 ; Restless legs syndrome G25.81 ; GERD (gastroesophageal reflux disease) K21.9 and COPD ( chronic obstructive pulmonary disease) J44.9 [facility] [address], [place] [address]- 9691 Mar, [facility] [address], [place] [address]- 6851 Mar, [facility] [id number] [place] [address] 15966- 1012 Mar, Diabetes E11.9 ; Abscess L02.91 and Restless legs syndrome G25.81 [facility] [address] [place] [address] 05801- 4307 Mar, [facility] [address] [place] [address] 07690- 8348 Feb, GERD (gastroesophageal reflux disease) K21.9 ; Back pain M54.9 ; ED (erectile dysfunction) N52.9 ; Diabetes E11.9 ; HTN (hypertension) I10 and Insomnia G47.00 [facility] [id number] [place] [address] 91706- 3165 Feb, [facility] [address] 39115- 9565 Feb, [facility] [address] 33620- 4398 Jan, [facility] [id number] [place] [address] 74330- 3885 Jan, Diabetes 250.00 ; Nondependent cannabis abuse, continuous 305.21 ; Cough 786.2 ; Schizoaffective disorder, unspecified 295.70 ; Sciatica 724.3 ; Other, mixed, or unspecified nondependent drug abuse, unspecified 305.90 ; Chronic pain 338.29 ; GERD (gastroesophageal reflux disease) 530.81 and HTN (hypertension) 401.9 [facility] [id number] [place] [address] 63201- 0337 Jan, [facility] [id number] [place] [address] 60568- 3911 Jan, [facility] [id number] [place] [address] 56770- 8257 Jan, Chronic pain associated with significant psychosocial dysfunction 338.4 ; Diabetes mellitus without mention of complication, type I [ juvenile type], uncontrolled 250.03 ; Benign essential hypertension 401.1 ; Schizoaffective disorder, unspecified 295.70 ; Wheezing 786.07 ; Ear ache 388.70 ; Cough 786.2 ; Sciatica 724.3 and Foot pain, bilateral 729.5 [facility] [id number] [place] [address] 52918- 2652 Dec, [facility] [address], [place] [address]- 6678 Dec, [facility] [address], [place] [address]- 9643 Dec, [facility] [address], [place] [address]- 8214 Dec, [facility] [id number] [place] [address] 02697- 5473 Dec, [facility] [address] [place] [address] 46553- 6928 Nov, Elevated liver enzymes 790.5 [facility] [id number] [place] [address] 00980- 8709 Nov, [facility] [address] [place] [address] 29824- 6562 Nov, [facility] [address], [place] [address]- 2557 Nov, [facility] [address], [place] [address]- 7207 Nov, Benign essential hypertension 401.1 ; Diabetes mellitus without mention of complication, type I [juvenile type], uncontrolled 250.03 and Nondependent cannabis abuse, continuous 305.21 [facility] [address], [place] [address]- 4393 Oct, Cellulitis 682.9 and Benign essential hypertension 401.1 [facility] [address], [place] [address]- 4792 Oct, [facility] [address] [address]- 1199 September, [facility] [address], [place] [address]- 2738 September, [facility] [address], [place] [address]- 0781 Aug, [facility] [place] [facility] [address] [id number] [place] [address]- 9269 28 Aug, 2014 [facility] [place] [facility] [address] [id number] [place] [address]- 4062 14 Aug, 2014 [facility] [place] [facility] [address] [id number] [place] [address]- 4189 Aug, [facility] [place] [facility] [address] [id number] [place] [address]- 0303 Jul, [facility] [place] [facility] [address] [id number] [place] [address]- 7489 Jul, [facility] [place] [facility] [address] [id number] [place] [address]- 4082 Jul, [facility] [place] [facility] [address] [id number] [place] [address]- 4386 Jul, [facility] [place] [facility] [address] [id number] [place] [address]- 9850 Jul, [facility] [place] [facility] [address] [id number] [place] [address]- 9280 Jul, [facility] [place] [facility] [address] [id number] [place] [address]- 2231 Jun, [facility] [place] [facility] [address] [id number] [place] [address] Jun, [facility] [place] [facility] [address] [id number], [place] [address] Jun, [facility] [place] [facility] [address] [id number] [place] [address] Jun, [facility] [place] [facility] [address] [id number] [place] [address] Jun, [facility] [place] [facility] [address] [id number] [place] [address] May, [facility] [place] [facility] [address] [id number] [place] [address] May, [facility] [address] [id number] [place] [address] May, [facility] [address] [id number] [place] [address] May, [facility] [address] [id number] [place] [address] May, [facility] [address] [id number] [place] [address] May, [facility] [address] [id number] [place] [address] May, [facility] [address] [id number] [place] [address] May, [facility] [address] [id number] [place] [address] Apr, [facility] [address] [id number] [place] [address] Apr, [facility] [address] [id number] [place] [address] Apr, [facility] [address] [id number] [place] [address] Apr, [facility] [address] [id number] [place] [address] Mar, [facility] [facility] [address] [id number] [place] [address] Mar, [facility] [place] [facility] [address] [id number] [place] [address] Mar, [facility] [place] [facility] [address] [id number] [place] [address] Mar, [facility] [place] [facility] [address] [id number] [place] [address] Feb, [facility] [place] [facility] [address] [id number] [place] [address] Feb, [facility] [place] [facility] [address] [id number] [place] [address] Feb, [facility] [place] [facility] [address] [id number] [place] [address] Feb, [facility] [place] [facility] [address] [id number] [place] [address] Feb, [facility] [place] [facility] [address] [id number] [place] [address] Feb, [facility] [place] [facility] [address] [id number] [place] [address] Jan, [facility] [place] [facility] [address] [id number] [place] [address] Jan, [facility] [place] [facility] [address] [id number] [place] [address] Jan, [facility] [place] [facility] [address] [id number] [place] [address] Jan, [facility] [place] [facility] [address] [id number] [place] [address] Dec, [facility] [place] [facility] [address] [id number] [place] [address] Dec, [facility] [place] [facility] [address] [id number], [place] [address] Dec, [facility] [place] [facility] [address] [id number] [place] [address] Dec, [facility] [place] [facility] [address] [id number] [place] [address] Dec, [facility] [place] [facility] [address] [id number] [place] [address] Dec, [facility] [place] [facility] [address] [id number], [place] [address] Oct, [facility] [place] [facility] [address] [id number] [place] [address] Oct, [facility] [place] [facility] [address] [id number] [place] [address] September, [facility] [place] [facility] [address] [id number] [place] [address] September, [facility] [place] [facility] [address] [id number] [place] [address] September, [facility] [place] [facility] [address] [id number] [place] [address] September, [facility] [place] [facility] [address] [id number] [place] [address] September, [facility] [place] [facility] [address] [facility] [id number] [place] [address] September, [facility] [place] [facility] [address] [id number] [place] [address] Aug, [facility] [place] [facility] [address] [id number] [place] [address] Aug, [facility] [place] [facility] [address] [id number] [place] [address] Aug, [facility] [place] [facility] [address] [id number] [place] [address] Aug, [facility] [place] [facility] [address] [id number] [place] [address] Jul, [facility] [place] [facility] [address] [id number] [place] [address] Jul, [facility] [place] [facility] [address] [id number] [place] [address] Jun, [facility] [place] [facility] [address] [id number] [place] [address] Jun, [facility] [place] [facility] [address] [id number] [place] [address] May, [facility] [place] [facility] [address] [id number] [place] [address] May, [facility] [place] [facility] [address] [id number] [place] [address] Jan, [facility] [place] [facility] [address] [id number] [place] [address] Dec, [facility] [place] [facility] [address] [id number] [place] [address] Jun, [facility] [place] [facility] [address] [id number] [place] [address] May, [facility] [place] [facility] [address] [id number] [place] [address] Nov, [facility] [place] [facility] [address] [id number] [place] [address] September, [facility] [address] [id number] [place] [address] Aug, [facility] [place] [facility] [address] [id number] [place] [address] Aug, [facility] [place] [facility] [address] [id number] [place] [address] Aug, [facility] [place] [facility] [address] [id number] [place] [address] Aug, [facility] [place] [facility] [address] [id number] [place] [address] Nov, [facility] [place] [facility] [address] [id number] [place] [address] Oct, [facility] [place] [facility] [address] [id number] [place] [address] Jul, [facility] [place] [facility] [address] [id number] [place] [id number] Feb, [facility] [address] [facility] [id number] [place] [address] Feb, [facility] [address] [facility] [id number], [place] [address] Apr, [facility] [address] [facility] [id number], [place] [address] Apr, [facility] [address] [facility] [id number], [place] [address] Feb, [facility] [address] [facility] [id number], [place] [address] Feb, [facility] [address] [facility] [id number], [place] [address] Jul, IMMUNIZATIONS No Known Immunizations SOCIAL HISTORY Never Assessed REASON FOR VISIT Vicoprofen and Lyrica 04/28 PLAN OF CARE VITAL SIGNS MEDICATIONS Medication Instructions Dosage Frequency Start Date End Date Duration Status Lyrica 150 MG Orally Twice a day 1 capsule 12h 28 Active Hydrocodone-Ibuprofen 7.5-200 MG Orally 3 times a day 1 tablet as needed 8h 19 Apr, 2017 28 days Active RESULTS No Results [...]
[2018-09-15 22:57] LABS: BAND NEUTROPHILS 0 %; BASOPHILS % (MANUAL) 0 %; EOSINOPHILS % (MANUAL) 2 %; LYMPHOCYTES % (MANUAL) 40 %; MONOCYTES % (MANUAL) 7 %; NEUTROPHILS % (MANUAL) 51 %
[2018-09-15 22:58] LABS: RBC MORPH NORMAL; SODIUM 119 MMOL/L (135-145)
[2018-09-15] MEDS ORDERED: NS IV 1000 ML 1,000 ML IV ONE (22:58)
--- OUTSIDE RECORDS SUMMARY | 2018-09-15 22:58 | XMS REPORT ---
Author Author ANIL Sanchez [facility] Address [address] [place] [address] Care Team Providers Care Curator Of Manuscripts Name Role Phone ANIL Sanchez Unavailable PROBLEMS Type Condition ICD9-CM Code SNP70-CO Code Onset Dates Condition Status SNOMED Code Problem HTN (hypertension) I10 Active 49493076 Problem Restless legs syndrome G25.81 Active 147399361 Problem GERD (gastroesophageal reflux disease) K21.9 Active 895708688 Problem ED (erectile dysfunction) N52.9 Active 092012533 Problem PAD (peripheral artery disease) I73.9 Active 845963471 Problem Ulcer of right foot, unspecified ulcer stage L97.519 Active 12776994 Problem 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 147868372 Problem COPD (chronic obstructive pulmonary disease) J44.9 Active 66343922 Problem DM neuro manif type II E11.49 Active 98278150 Problem Sinusitis, unspecified chronicity, unspecified location J32.9 Active 59016818 ALLERGIES No Information ENCOUNTERS Encounter Location Date Diagnosis [facility] [address], [place] [address] Nov, [facility] [id number] [place] [address] 72090- 2352 Oct, [facility] [id number] [place] [address] 68829- 2960 Oct, Back pain M54.9 [facility] [id number] [place] [address] 97839- 8987 Oct, Back pain M54.9 [facility] [id number] [place] [address] 00875- 0265 Oct, [facility] [id number] [place] [address] 11736- 9539 September, [facility] [id number] [place] [address] 98186- 1130 September, [facility] [id number] [place] [address] 17113- 1116 September, [facility] [id number] [place] [address] 04886- 8266 September, Type 2 diabetes mellitus with other diabetic neurological complication E11.49 and Hypotension, unspecified hypotension type I95.9 [facility] [id number] [place] [address] 12240- 9011 September, [facility] [id number] [place] [address] 14500- 3737 September, [facility] [id number] [place] [address] 23322- 0957 September, Back pain M54.9 [facility] [id number] [place] [address] 92015- 1805 Aug, [facility] [id number] [place] [address] 82041- 5405 Aug, Acute cystitis with hematuria N30.01 ; Ulcer of right foot, unspecified ulcer stage L97.519 ; HTN (hypertension) I10 ; COPD (chronic obstructive pulmonary disease) J44.9 and DM neuro manif type II E11.49 [facility] [id number] [place] [address] 73101- 4997 Aug, Back pain M54.9 [facility] [id number] [place] [address] 10098- 3488 Jul, [facility] [id number] [place] [address] 80812- 3112 Jul, Back pain M54.9 [facility] [id number] [place] [address] 39705- 7891 Jul, [facility] [id number] [place] [address] 40258- 0687 Jul, DM neuro manif type II E11.49 and Ulcer of right foot, unspecified ulcer stage L97.519 [facility] [id number] [place] [address] 82314- 4308 Jun, [facility] [id number] [place] [address] 23954- 3106 Jun, [facility] [id number] [place] [address] 70865- 0268 May, Type 2 diabetes mellitus with other diabetic neurological complication E11.49 ; GERD (gastroesophageal reflux disease) K21.9 and PAD ( peripheral artery disease) I73.9 [facility] [id number] [place] [address] 29083- 8829 May, Decubital ulcer L89.90 ; Diabetes E11.9 and GERD ( gastroesophageal reflux disease) K21.9 [facility] [id number] [place] [address] 38121- 6925 May, [facility] [id number] [place] [address] 37749- 6411 Apr, [facility] [id number] [place] [address] 71535- 0340 Mar, [facility] [id number] [place] [address] 39950- 6046 Mar, [facility] [id number] [place] [address] 90972- 0812 Feb, [facility] [id number] [place] [address] 33669- 8163 Feb, [facility] [id number] [place] [address] 51746- 3591 Jan, [facility] [id number] [place] [address] 98518- 1530 Jan, HTN (hypertension) I10 [facility] [id number] [place] [address] 34856- 7226 Jan, [facility] [id number] [place] [address] 10482- 6616 Dec, Back pain M54.9 [facility] [id number] [place] [address] 16003- 6715 Dec, Back pain M54.9 [facility] [id number] [place] [address] 31123 -6475 Dec, Encounter for immunization Z23 and Puncture wound of right foot, initial encounter S91.331A [facility] [address] 84497- 7088 Dec, [facility] [id number] [place] [address] 97306- 4865 Nov, [facility] [id number] [place] [address] 12425- 4314 Nov, COPD (chronic obstructive pulmonary disease) J44.9 [facility] [id number] [place] [address] 78267- 0211 Nov, [facility] [id number] [place] [address] 38821- 7248 Oct, [facility] [id number] [place] [address] 44493- 4400 Oct, [facility] [id number] [place] [address] 25866- 8700 September, Onychomycosis B35.1 and DM neuro manif type II E11.49 [facility] [id number] [place] [address] 72994- 5162 September, [facility] [id number] [place] [address] 62544- 7316 Aug, [facility] [id number] [place] [address] 80281- 4269 Jul, Sinusitis, unspecified chronicity, unspecified location J32.9 and Cough R05 [facility] [id number] [place] [address] 75253- 5969 Jul, Back pain M54.9 [facility] [id number] [place] [address] 49539- 0698 14 Jun, 2016 Back pain M54.9 [facility] [address] 52970- 3481 06 Jun, 2016 COPD (chronic obstructive pulmonary disease) J44.9 [facility] [id number] [place] [address] 66171- 2659 17 May, 2016 [facility] [id number] [place] [address] 64052- 9662 May, [facility] [id number] [place] [address] 94558- 8277 May, Back pain M54.9 [facility] [id number] [place] [address] 39907- 4183 16 May, 2016 [facility] [address] 83774- 3790 May, [facility] [id number] [place] [address] 31636- 6239 May, Diabetes E11.9 [facility] [id number] [place] [address] 83877- 9862 May, Diabetes E11.9 ; GERD (gastroesophageal reflux [...] test Z11.59 [facility] [id number] [place] [address] 01877- 1615 May, HTN (hypertension) I10 [facility] [id number] [place] [address] 75845- 1676 Apr, [facility] [id number] [place] [address] 89104- 2278 Apr, [facility] [id number] [place] [address] 28725- 7968 Apr, [facility] [id number] [place] [address] 29951- 3132 Apr, [facility] [id number] [place] [address] 36855- 5316 Apr, [facility] [id number] [place] [address] 96699- 6289 Mar, [facility] [id number] [place] [address] 18623- 8357 Mar, [facility] [id number] [place] [address] 40245- 8008 Mar, [facility] [id number] [place] [address] 86687- 1607 Mar, [facility] [address] [place] [address] 03002- 3914 Mar, Dental examination Z01.20 [facility] [address] [place] [address] 65408- 0348 Feb, [facility] [address] [place] [address] 54453- 6094 Feb, [facility] [id number] [place] [address] 27292- 4615 Feb, Back pain M54.9 [facility] [address], [place] [address]- 5206 Jan, [facility] [id number] [place] [address] 60839- 7239 Jan, [facility] [address], [place] [address]- 6813 Dec, Diabetes E11.9 ; GERD (gastroesophageal reflux disease) K21.9 ; ED (erectile dysfunction) N52.9 ; HTN (hypertension) I10 ; Insomnia G47.00 ; COPD (chronic obstructive pulmonary disease) J44.9 ; Neuropathy G62.9 and Bipolar depression F31.30 [facility] [id number] [place] [address] 10555- 6181 Dec, Type 2 diabetes mellitus with other diabetic neurological complication E11.49 and Onychomycosis B35.1 [facility] [id number] [place] [address] 97521- 4662 Dec, [facility] [id number] [place] [address] 34660- 7577 Dec, [facility] [id number] [place] [address] 04933- 5804 Dec, [facility] [id number] [place] [address] 67321- 6891 Dec, [facility] [id number] [place] [address] 65116- 0680 Nov, [facility] [address], [place] [address]- 4313 Nov, [facility] [id number] [place] [address] 33036- 2905 Oct, [facility] [address], [place] [address]- 4451 Oct, [facility] [id number] [place] [address] 09422- 8560 Oct, Back pain M54.9 [facility] [address], [place] [address]- 6924 Oct, [facility] [address] [place] [address]- 4265 Oct, [facility] [address] [place] [address] 66211- 1452 Oct, [facility] [id number] [place] [address] 28799- 6515 Oct, HTN (hypertension) I10 [facility] [id number] [place] [address] 90941- 0825 Oct, Back pain M54.9 [facility] [id number] [place] [address] 14323- 3075 Oct, Chronic pain syndrome G89.4 [facility] [id number] [place] [address] 81575- 1791 September, Back pain M54.9 [facility] [id number] [place] [address] 82880- 7038 September, HTN (hypertension) I10 [facility] [id number] [place] [address] 89454- 0127 Aug, Porokeratosis Q82.8 ; Onychomycosis B35.1 and Type 2 diabetes mellitus with other diabetic neurological complication E11.49 [facility] [address] [place] [address] 98996- 0127 Aug, GERD (gastroesophageal reflux disease) K21.9 ; Diabetes E11.9 ; HTN (hypertension) I10 ; Insomnia G47.00 ; Restless legs syndrome G25.81 ; COPD (chronic obstructive pulmonary disease) J44.9 ; Back pain M54.9 and Bipolar 1 disorder F31.9 [facility] [address] [place] [address] 97848- 2856 Aug, [facility] [id number] [place] [address] 54911- 5800 Aug, [facility] [id number] [place] [address] 48428- 1479 Aug, [facility] [address], [place] [address]- 7180 Aug, [facility] [id number] [place] [address] 34245- 1121 31 Jul, 2015 [facility] [id number] [address]- 1001 31 Jul, 2015 [facility] [id number] [place] [address] 68074- 3948 30 Jul, 2015 [facility] [id number] [place] [address] 15335- 6355 16 Jul, 2015 [facility] [id number] [place] [address] 98565- 5531 15 Jul, 2015 [facility] [id number] [place] [address] 75379- 8718 Jul, [facility] [id number] [place] [address] 73779- 9415 17 Jun, 2015 Decubital ulcer L89.90 ; Diabetes E11.9 ; Back pain M54.9 ; HTN (hypertension) I10 and COPD (chronic obstructive pulmonary disease) J44.9 [facility] [address], [place] [address]- 5549 10 Jun, 2015 [facility] [address], [place] [address]- 2040 Jun, [facility] [address], [place] [address]- 7081 Jun, [facility] [address], [place] [address]- 0739 Jun, [facility] [address], [place] [address]- 5693 03 Jun, 2015 Diabetes E11.9 ; Insomnia G47.00 ; Decubital ulcer L89.90 ; GERD (gastroesophageal reflux disease) K21.9 ; Back pain M54.9 ; Superficial fungus infection of skin B36.9 and HTN (hypertension) I10 [facility] [address] [facility] [id number] [id number] Jun, Dental examination Z01.20 [facility] [address], [place] [address]- 0174 May, [facility] [address], [place] [address]- 3408 May, [facility] [address], [place] [address]- 2927 May, [facility] [id number] [place] [address] 33078- 3101 May, Diabetes E11.9 ; HTN (hypertension) I10 and Decubital ulcer L89.90 [facility] [address] [address]- 5846 May, HTN (hypertension) I10 ; Decubital ulcer L89.90 and Diabetes E11.9 [facility] [address] [address]- 9729 Apr, Diabetes E11.9 ; GERD (gastroesophageal reflux disease) K21.9 ; Back pain M54.9 ; HTN (hypertension) I10 ; Restless legs syndrome G25.81 and Decubital ulcer L89.90 [facility] [address], [place] [address]- 0009 Apr, [facility] [address] [place] [address] 30034- 1095 Apr, Diabetes E11.9 ; HTN (hypertension) I10 ; Restless legs syndrome G25.81 ; GERD (gastroesophageal reflux disease) K21.9 and COPD ( chronic obstructive pulmonary disease) J44.9 [facility] [address], [place] [address]- 3031 Mar, [facility] [address], [place] [address]- 7287 Mar, [facility] [id number] [place] [address] 86494- 3162 Mar, Diabetes E11.9 ; Abscess L02.91 and Restless legs syndrome G25.81 [facility] [id number] [place] [address] 30779- 9533 Mar, [facility] [address] 00288- 8293 Feb, GERD (gastroesophageal reflux disease) K21.9 ; Back pain M54.9 ; ED (erectile dysfunction) N52.9 ; Diabetes E11.9 ; HTN (hypertension) I10 and Insomnia G47.[address] 84899- 0186 Feb, [facility] [address] 24350- 4155 Feb, [facility] [address] 26504- 4876 Jan, [facility] [id number] [place] [address] 63532- 2868 Jan, Diabetes 250.00 ; Nondependent cannabis abuse, continuous 305.21 ; Cough 786.2 ; Schizoaffective disorder, unspecified 295.70 ; Sciatica 724.3 ; Other, mixed, or unspecified nondependent drug abuse, unspecified 305.90 ; Chronic pain 338.29 ; GERD (gastroesophageal reflux disease) 530.81 and HTN (hypertension) 401.9 [facility] [id number] [place] [address] 21041- 6780 Jan, [address] 84016- 1145 Jan, [facility] [id number] [place] [address] 39096- 0633 Jan, Chronic pain associated with significant psychosocial dysfunction 338.4 ; Diabetes mellitus without mention of complication, type I [ juvenile type], uncontrolled 250.03 ; Benign essential hypertension 401.1 ; Schizoaffective disorder, unspecified 295.70 ; Wheezing 786.07 ; Ear ache 388.70 ; Cough 786.2 ; Sciatica 724.3 and Foot pain, bilateral 729.5 [facility] [id number] [place] [address] 44861- 0869 Dec, [facility] [id number] [place] [address] 47333- 1653 Dec, [facility] [address] 26256- 2218 Dec, [facility] [address] 00942- 5046 Dec, [facility] [address] 33080- 8498 Dec, [facility] [address] 11434- 4965 Nov, Elevated liver enzymes 790.5 [facility] [id number] [place] [address] 32956- 1879 Nov, [facility] [address] 82704- 1062 Nov, [facility] [id number] [place] [address] 65226- 1033 Nov, [facility] [id number] [place] [address] 26963- 8199 Nov, Benign essential hypertension 401.1 ; Diabetes mellitus without mention of complication, type I [juvenile type], uncontrolled 250.03 and Nondependent cannabis abuse, continuous 305.21 [facility] [id number] [place] [address] 23910- 6853 Oct, Cellulitis 682.9 and Benign essential hypertension 401.1 [facility] [id number] [place] [address] 18772- 2447 Oct, [facility] [address] [place] [address]- 9416 September, [facility] [place] [facility] [address] [id number] [place] [address]- 3406 September, [facility] [place] [facility] [address] [id number] [place] [address]- 0962 Aug, [facility] [place] [facility] [address] [id number] [place] [address]- 9268 Aug, [facility] [place] [facility] [address] [id number] [place] [address]- 3306 Aug, [facility] [place] [facility] [address] [id number] [place] [address]- 8494 Aug, [facility] [place] [facility] [address] [facility] [id number] [place] [address]- 4580 Jul, [facility] [place] [facility] [address] [facility] [id number] [place] [address]- 4450 Jul, [facility] [place] [facility] [address] [facility] [id number] [place] [address]- 0821 Jul, [facility] [place] [facility] [address] [id number] [place] [address]- 8822 Jul, [facility] [place] [facility] [address] [facility] [id number] [place] [address]- 6502 Jul, [facility] [place] [facility] [address] [facility] [id number] [place] [address]- 4018 Jul, [facility] [place] [facility] [address] [facility] [id number] [place] [address]- 6453 Jun, [facility] [place] [facility] [address] [id number] [place] 7889 Jun, [facility] [place] [facility] [address] [facility] [id number] [place] [address]- 0922 Jun, [facility] [place] [facility] [address] [facility] [id number] [place] [address]- 3451 Jun, [facility] [place] [facility] [address] [id number] [place] [address]- 5852 Jun, [facility] [place] [facility] [address] [id number] [place] [address]- 0238 May, [facility] [place] [facility] [address] [id number] [place] [address] May, [facility] [place] [facility] [address] [id number] [place] [address] May, [facility] [place] [facility] [address] [id number] [place] [address] May, [facility] [place] [facility] [address] [id number] [place] [address] May, [facility] [place] [facility] [address] [id number] [place] [address] May, [facility] [place] [facility] [address] [id number] [place] [address] May, [facility] [place] [facility] [address] [id number] [place] [address] May, [facility] [place] [facility] [address] [id number] [place] [address] Apr, [facility] [place] [facility] [address] [id number] [place] [address] Apr, [facility] [place] [facility] [address] [id number] [place] [address] Apr, [facility] [place] [facility] [address] [id number] [place] [address] Apr, [facility] [place] [facility] [address] [id number] [place] [address] Mar, [facility] [place] [facility] [address] [id number] [place] [address] Mar, [facility] [place] [facility] [address] [id number] [place] [address] Mar, [facility] [place] [facility] [address] [id number] [place] [address] Mar, [facility] [place] [facility] [address] [id number] [place] [address] Feb, [facility] [place] [facility] [address] [id number] [place] [address] Feb, [facility] [place] [facility] [address] [id number] [place] [address] Feb, [facility] [place] [facility] [address] [id number] [place] [address] Feb, [facility] [place] [facility] [address] [id number] [place] [address]- [address] Feb, [facility] [place] [facility] [address] [id number] [place] [address]- [address] Feb, [facility] [place] [facility] [address] [id number] [place] [address] 2013 Jan, [facility] [place] [facility] [address] [id number] [place] [address] Jan, [facility] [place] [facility] [address] [id number] [place] [address]- [address] Jan, [facility] [place] [facility] [address] [id number] [place] [address] Jan, [facility] [place] [facility] [address] [id number] [address] Dec, [facility] [place] [facility] [address] [id number] [place] [address] Dec, [facility] [place] [facility] [address] [id number] [place] [address] Dec, [facility] [place] [facility] [address] [id number] [place] [address] Dec, [facility] [place] [facility] [address] [id number] [place] [address] Dec, [facility] [place] [facility] [address] [id number] [place] [address] Dec, [facility] [place] [facility] [address] [id number] [place] [address] Oct, [facility] [place] [facility] [address] [id number] [place] [address] Oct, [facility] [place] [facility] [address] [id number] [place] [address] September, [facility] [place] [facility] [address] [id number] [place] [address] September, [facility] [place] [facility] [address] [id number] [place] [address] September, [facility] [place] [facility] [address] [id number] [place] [address] September, [facility] [place] [facility] [address] [id number] [place] [address] September, [facility] [place] [facility] [address] [id number] [place] [address] September, [facility] [place] [facility] [address] [id number] [place] [address] Aug, [facility] [place] [facility] [address] [id number] [place] [address] Aug, [facility] [place] [facility] [address] [id number] [place] [address] Aug, [facility] [place] [facility] [address] [id number] [place] [address] Aug, [facility] [place] [facility] [address] [id number] [place] [address] Jul, [facility] [place] [facility] [address] [id number] [place] [address] Jul, [facility] [place] [facility] [address] [id number] [place] [address] Jun, [facility] [place] [facility] [address] [id number] [place] [address] Jun, [facility] [place] [facility] [address] [id number] [place] [address] May, [facility] [place] [facility] [address] [id number] [place] [address] May, [facility] [place] [facility] [address] [id number] [place] [address] Jan, [facility] [place] [facility] [address] [id number] [place] [address] Dec, [facility] [place] [facility] [address] [id number] [place] [address] Jun, [facility] [place] [facility] [address] [id number] [place] [address] May, [facility] [place] [facility] [address] [id number] [place] [address] Nov, [facility] [place] [facility] [address] [id number] [place] [address] September, [facility] [place] [facility] [address] [id number] [place] [address] Aug, [facility] [place] [facility] [address] [id number] [place] [address] Aug, [facility] [place] [facility] [address] [id number] [place] [address] Aug, [facility] [place] [facility] [address] [id number] [place] [address] Aug, [facility] [place] [facility] [address] [id number] [place] [address] Nov, [facility] [place] [facility] [address] [id number] [address] Oct, [facility] [address] [id number] [address] Jul, [facility] [id number] [address] [address] Feb, [facility] [id number] [address] Feb, [facility] [id number], [place] [address] Apr, [facility] [id number] [place] [address] Apr, [facility] [id number], [place] [address] Feb, [facility] [id number], [place] [address] Feb, [facility] [address] [id number], [place] [address] Jul, IMMUNIZATIONS No Known Immunizations SOCIAL HISTORY Never Assessed REASON FOR VISIT eye exam PLAN OF CARE VITAL SIGNS MEDICATIONS Unknown [...]
[2018-09-15] MEDS ORDERED: PROPOFOL INJECTION 50 ML IV SCH (23:00)
--- OUTSIDE RECORDS SUMMARY | 2018-09-15 23:00 | XMS REPORT ---
Author Author EMILIANO HAWTHORNE Organization [facility] Address [address] [place] [address] Care Team Providers Care Program Research Specialist Name Role Phone EMILIANO HAWTHORNE Unavailable PROBLEMS Type Condition ICD9-CM Code HFE48-JH Code Onset Dates Condition Status SNOMED Code Problem HTN (hypertension) I10 Active 06962010 Problem Restless legs syndrome G25.81 Active 994725149 Problem GERD (gastroesophageal reflux disease) K21.9 Active 207665852 Problem ED (erectile dysfunction) N52.9 Active 986312396 Problem PAD (peripheral artery disease) I73.9 Active 638298499 Problem Ulcer of right foot, unspecified ulcer stage L97.519 Active 48236433 Problem 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 829107814 Problem COPD (chronic obstructive pulmonary disease) J44.9 Active 18880886 Problem DM neuro manif type II E11.49 Active 64882290 Problem Sinusitis, unspecified chronicity, unspecified location J32.9 Active 74058198 ALLERGIES No Information ENCOUNTERS Encounter Location Date Diagnosis [facility] [id number] [place] [address] 97894- 5161 Nov, [facility] [id number] [place] [address] 72306- 5329 Oct, [facility] [id number] [place] [address] 88321- 8543 September, [facility] [id number] [place] [address] 43941- 0914 September, [facility] [id number] [place] [address] 94051- 5856 September, [facility] [id number] [place] [address] 04484- 8636 September, Type 2 diabetes mellitus with other diabetic neurological complication E11.49 and Hypotension, unspecified hypotension type I95.9 [facility] [id number] [place] [address] 16146- 4162 September, [facility] [id number] [place] [address] 61513- 7603 September, [facility] [id number] [place] [address] 27998- 3531 September, Back pain M54.9 [facility] [id number] [place] [address] 67866- 8215 Aug, [facility] [id number] [place] [address] 15975- 5855 Aug, Acute cystitis with hematuria N30.01 ; Ulcer of right foot, unspecified ulcer stage L97.519 ; HTN (hypertension) I10 ; COPD (chronic obstructive pulmonary disease) J44.9 and DM neuro manif type II E11.49 [facility] [id number] [place] [address] 68131- 5308 Aug, Back pain M54.9 [facility] [id number] [place] [address] 20745- 7504 Jul, [facility] [id number] [place] [address] 92004- 2014 Jul, Back pain M54.9 [facility] [id number] [place] [address] 23700- 0200 Jul, [facility] [id number] [place] [address] 46849- 3141 Jul, DM neuro manif type II E11.49 and Ulcer of right foot, unspecified ulcer stage L97.519 [facility] [id number] [place] [address] 57477- 7742 Jun, [facility] [id number] [place] [address] 14865- 6697 Jun, [place] [address] [facility] [id number] [address] 0697 May, Type 2 diabetes mellitus with other diabetic neurological complication E11.49 ; GERD (gastroesophageal reflux disease) K21.9 and PAD ( peripheral artery disease) I73.9 [facility] [id number] [place] [address] 18353- 1301 17 May, 2017 Decubital ulcer L89.90 ; Diabetes E11.9 and GERD ( gastroesophageal reflux disease) K21.9 [facility] [address] [facility] [id number] [place] [address] 71274- 6535 May, [facility] [id number] [place] [address] 50662- 3852 Apr, [facility] [id number] [place] [address] 30786- 0198 Mar, [facility] [id number] [place] [address] 82765- 6264 Mar, [facility] [id number] [place] [address] 64425- 9557 Feb, [facility] [id number] [place] [address] 68092- 2391 Feb, [facility] [id number] [place] [address] 69110- 4526 Jan, [facility] [id number] [place] [address] 36643- 5670 Jan, HTN (hypertension) I10 [facility] [id number] [place] [address] 72795- 9494 Jan, [facility] [id number] [place] [address] 31980- 1459 Dec, Back pain M54.9 [facility] [address] [address]- 1342 Dec, Back pain M54.9 [facility] [id number] [address] Dec, Encounter for immunization Z23 and Puncture wound of right foot, initial encounter S91.331A [facility] [id number] [place] [address] 17505- 2507 Dec, [facility] [id number] [place] [address] 24727- 6790 Nov, [facility] [id number] [place] [address] 49558- 6111 Nov, COPD (chronic obstructive pulmonary disease) J44.9 [facility] [id number] [place] [address] 08046- 4663 Nov, [facility] [id number] [place] [address] 87034- 7767 Oct, [facility] [id number] [place] [address] 52743- 6448 Oct, [facility] [id number] [place] [address] 08408- 0536 September, Onychomycosis B35.1 and DM neuro manif type II E11.49 [facility] [id number] [place] [address] 35927- 0434 September, [facility] [id number] [place] [address] 42994- 6072 Aug, [facility] [id number] [place] [address] 81642- 5320 Jul, Sinusitis, unspecified chronicity, unspecified location J32.9 and Cough R05 [facility] [id number] [place] [address] 64873- 0587 Jul, Back pain M54.9 [facility] [id number] [place] [address] 58555- 3862 14 Jun, 2016 Back pain M54.9 [facility] [id number], [place] [address]- 3074 06 Jun, 2016 COPD (chronic obstructive pulmonary disease) J44.9 [facility] [address], [place] [address]- 6773 17 May, 2016 [facility] [id number] [address]- 4682 May, [facility] [id number] [place] [address] 14981- 2304 May, Back pain M54.9 [facility] [id number] [place] [address] 78001- 8799 May, [facility] [id number] [place] [address] 96783- 8500 May, [facility] [id number] [place] [address] 09945- 1791 May, Diabetes E11.9 [facility] [id number], [place] [address]- 7180 May, Diabetes E11.9 ; GERD (gastroesophageal reflux [...] Need for hepatitis C screening test Z11.59 [facility] [address], [place] [address]- 7576 May, HTN (hypertension) I10 [facility] [id number], [place] [address]- 9411 Apr, [facility] [id number] [address]- 2798 Apr, [facility] [id number] [place] [address] 79942- 0228 Apr, [facility] [id number] [place] [address] 13570- 8460 Apr, [facility] [id number] [place] [address] 30320- 0330 Apr, [facility] [id number] [place] [address] 65987- 7915 Mar, [facility] [id number] [place] [address] 77761- 5262 Mar, [facility] [id number] [place] [address] 38671- 0111 Mar, [facility] [id number] [place] [address] 12224- 2968 Mar, [facility] [id number] [place] [address] 56623- 0068 Mar, Dental examination Z01.20 [facility] [id number] [place] [address] 16847- 9405 Feb, [facility] [id number] [place] [address] 65422- 2852 Feb, [facility] [id number] [place] [address] 07513- 0620 Feb, Back pain M54.9 [facility] [id number] [place] [address] 30589- 4500 Jan, [facility] [id number] [place] [address] 61061- 9095 Jan, [facility] [id number] [place] [address] 85150- 7726 Dec, Diabetes E11.9 ; GERD (gastroesophageal reflux disease) K21.9 ; ED (erectile dysfunction) N52.9 ; HTN (hypertension) I10 ; Insomnia G47.00 ; COPD (chronic obstructive pulmonary disease) J44.9 ; Neuropathy G62.9 and Bipolar depression F31.30 [facility] [address], [place] [address]- 0438 Dec, Type 2 diabetes mellitus with other diabetic neurological complication E11.49 and Onychomycosis B35.1 [facility] [address], [place] [address]- 8030 Dec, [facility] [id number] [place] [address]- 2821 Dec, [facility] [id number] [place] [address] 95278- 3537 Dec, [facility] [id number] [place] [address], [place] [address]- 8153 Dec, [facility] [id number] [place] [address] 13196- 2186 Nov, [facility] [id number] [place] [address] 03643- 5666 Nov, [facility] [address], [place] [address]- 7191 Oct, [facility] [id number] [place] [address] 30632- 2147 Oct, [facility] [address], [place] [address]- 0091 Oct, Back pain M54.9 [facility] [address], [place] [address]- 5054 Oct, [facility] [address], [place] [address]- 6182 Oct, [facility] [address], [place] [address]- 3422 Oct, [facility] [address], [place] [address]- 9627 Oct, HTN (hypertension) I10 [facility] [id number] [place] [address] 74524- 7364 Oct, Back pain M54.9 [facility] [id number] [place] [address] 48123- 2464 Oct, Chronic pain syndrome G89.4 [facility] [id number] [place] [address] 50035- 5798 September, Back pain M54.9 [facility] [id number] [place] [address] 91162- 2427 September, HTN (hypertension) I10 [facility] [id number] [place] [address] 91231- 1627 Aug, Porokeratosis Q82.8 ; Onychomycosis B35.1 and Type 2 diabetes mellitus with other diabetic neurological complication E11.49 [facility] [id number] [place] [address] 39811- 0166 Aug, GERD (gastroesophageal reflux disease) K21.9 ; Diabetes E11.9 ; HTN (hypertension) I10 ; Insomnia G47.00 ; Restless legs syndrome G25.81 ; COPD (chronic obstructive pulmonary disease) J44.9 ; Back pain M54.9 and Bipolar 1 disorder F31.9 [facility] [id number] [place] [address] 68667- 9929 Aug, [facility] [id number] [place] [address] 71724- 0885 Aug, [facility] [id number] [place] [address] 49561- 2296 Aug, [facility] [id number] [place] [address] 83101- 1149 Aug, [facility] [id number] [place] [address] 02373- 4648 Jul, [facility] [id number] [place] [address] 57110- 1980 Jul, [facility] [id number] [place] [address] 32062- 3028 30 Jul, 2015 [facility] [address], [place] [address]- 8924 16 Jul, 2015 [facility] [id number] [place] [address] 99512- 6454 15 Jul, 2015 [facility] [id number] [place] [address] 99849- 1238 Jul, [facility] [id number] [place] [address] 29124- 9307 Jun, Decubital ulcer L89.90 ; Diabetes E11.9 ; Back pain M54.9 ; HTN (hypertension) I10 and COPD (chronic obstructive pulmonary disease) J44.9 [facility] [id number] [place] [address] 67042- 3521 Jun, [facility] [id number] [place] [address] 67287- 5941 Jun, [facility] [id number] [place] [address] 10680- 5148 Jun, [facility] [id number] [place] [address] 65068- 6053 Jun, [facility] [id number] [place] [address] 36464- 6461 Jun, Diabetes E11.9 ; Insomnia G47.00 ; Decubital ulcer L89.90 ; GERD (gastroesophageal reflux disease) K21.9 ; Back pain M54.9 ; Superficial fungus infection of skin B36.9 and HTN (hypertension) I10 [address] [id number] [id number] Jun, Dental examination Z01.20 [facility] [address], [place] [address]- 8769 May, [facility] [id number] [place] [address] 73249- 6351 May, [place] [address], [place] [address]- 9054 May, [place] [id number] [place] [address] 38114- 6791 May, Diabetes E11.9 ; HTN (hypertension) I10 and Decubital ulcer L89.90 [place] [id number] [place] [address] 93274- 8747 May, HTN (hypertension) I10 ; Decubital ulcer L89.90 and Diabetes E11.9 [place] [id number] [place] [address] 69554- 9749 Apr, Diabetes E11.9 ; GERD (gastroesophageal reflux disease) K21.9 ; Back pain M54.9 ; HTN (hypertension) I10 ; Restless legs syndrome G25.81 and Decubital ulcer L89.90 [place] [id number] [place] [address] 34189- 1077 Apr, [place] [id number] [place] [address] 85000- 0696 Apr, Diabetes E11.9 ; HTN (hypertension) I10 ; Restless legs syndrome G25.81 ; GERD (gastroesophageal reflux disease) K21.9 and COPD ( chronic obstructive pulmonary disease) J44.9 [place] [address], [place] [address]- 9395 Mar, [place] [id number] [place] [address] 82864- 9581 Mar, [place] [id number] [place] [address] 49837- 9417 Mar, Diabetes E11.9 ; Abscess L02.91 and Restless legs syndrome G25.81 [place] [id number] [place] [address] 00776- 8883 Mar, [place] [id number] [place] [address] 13413- 3509 Feb, GERD (gastroesophageal reflux disease) K21.9 ; Back pain M54.9 ; ED (erectile dysfunction) N52.9 ; Diabetes E11.9 ; HTN (hypertension) I10 and Insomnia G47.00 [place] [address] 70876- 4755 Feb, [place] [address] 53489- 2625 Feb, [place] [address] 21941- 9752 Jan, [address] [address]22- 9736 Jan, Diabetes 250.00 ; Nondependent cannabis abuse, continuous 305.21 ; Cough 786.2 ; Schizoaffective disorder, unspecified 295.70 ; Sciatica 724.3 ; Other, mixed, or unspecified nondependent drug abuse, unspecified 305.90 ; Chronic pain 338.29 ; GERD (gastroesophageal reflux disease) 530.81 and HTN (hypertension) 401.[address] [address]- 1969 Jan, [address] 25320- 6141 Jan, [address] 32861- 3378 Jan, Chronic pain associated with significant psychosocial dysfunction 338.4 ; Diabetes mellitus without mention of complication, type I [ juvenile type], uncontrolled 250.03 ; Benign essential hypertension 401.1 ; Schizoaffective disorder, unspecified 295.70 ; Wheezing 786.07 ; Ear ache 388.70 ; Cough 786.2 ; Sciatica 724.3 and Foot pain, bilateral 729.[address] 89390- 9841 Dec, [address] 93319- 5374 Dec, [address] [id number] [address]- 7179 Dec, [facility] [address], [place] [address]- 2872 Dec, [facility] [address], [place] [address]- 9275 Dec, [facility] [id number] [place] [address] 39382- 0368 Nov, Elevated liver enzymes 790.5 [facility] [address], [place] [address]- 1579 Nov, [facility] [id number] [place] [address] 35769- 6843 Nov, [facility] [id number] [place] [address] 44391- 9218 Nov, [facility] [id number] [place] [address] 72196- 1685 Nov, Benign essential hypertension 401.1 ; Diabetes mellitus without mention of complication, type I [juvenile type], uncontrolled 250.03 and Nondependent cannabis abuse, continuous 305.21 [facility] [address], [place] [address]- 9507 Oct, Cellulitis 682.9 and Benign essential hypertension 401.1 [facility] [address], [place] [address]- 6115 Oct, [facility] [address], [place] [address]- 0382 September, [facility] [address], [place] [address]- 0711 September, [facility] [address], [place] [address]- 1406 Aug, [facility] [address], [place] [address]- 6510 Aug, [facility] [place] [facility] [address] [id number] [place] [address]- 1995 14 Aug, 2014 [facility] [place] [facility] [address] [id number] [place] [address]- 2509 13 Aug, 2014 [facility] [place] [facility] [address] [id number] [place] [address]- 7685 Jul, [facility] [place] [facility] [address] [id number] [place] [address]- 5913 Jul, [facility] [place] [facility] [address] [id number] [place] [address]- 0618 Jul, [facility] [place] [facility] [address] [id number] [place] [address]- 0249 Jul, [facility] [place] [facility] [address] [facility] [id number] [place] [address]- 7138 Jul, [facility] [place] [facility] [address] [id number] [place] [address]- 5923 Jul, [facility] [place] [facility] [address] [id number] [place] [address]- 0953 Jun, [facility] [place] [facility] [address] [id number] [place] [address]- 2805 Jun, [facility] [place] [facility] [address] [facility] [id number] [place] [address]- 0445 Jun, [facility] [place] [facility] [address] [id number], [place] [address]- [address] Jun, [facility] [place] [facility] [address] [id number] [place] [address] Jun, [facility] [place] [facility] [address] [id number] [place] [address] May, [facility] [place] [facility] [address] [id number] [place] [address] May, [facility] [place] [facility] [address] [id number], [place] [address] May, [facility] [place] [facility] [address] [id number] [place] [address] May, [facility] [place] [facility] [address] [id number] [place] [address] May, [facility] [place] [facility] [address] [facility] [id number] [place] [address] May, [facility] [place] [facility] [address] [id number] [place] [address] May, [facility] [place] [facility] [address] [id number] [place] [address]- [address] May, [facility] [place] [facility] [address] [id number] [place] [address] Apr, [facility] [place] [facility] [address] [facility] [id number] [place] [address] Apr, [facility] [place] [facility] [address] [id number] [place] [address] Apr, [facility] [place] [facility] [address] [facility] [id number] [place] [address] Apr, [facility] [place] [facility] [address] [facility] [id number] [place] [address] Mar, [facility] [place] [facility] [address] [id number], [place] [address] Mar, [facility] [place] [facility] [address] [id number], [place] [address] Mar, [facility] [place] [facility] [address] [id number] [place] [address] Mar, [facility] [place] [facility] [address] [facility] [id number] [place] [address]- [address] Feb, [facility] [place] [facility] [address] [id number] [place] [address]- [address] Feb, [facility] [place] [facility] [address] [id number] [place] [address]- [address] Feb, [facility] [place] [facility] [address] [id number] [place] [address] Feb, [facility] [place] [facility] [address] [id number] [place] [address] Feb, [facility] [place] [facility] [address] [id number] [place] [address] Feb, [facility] [place] [facility] [address] [id number] [place] [address] Jan, [facility] [place] [facility] [address] [id number] [place] [address] Jan, [facility] [place] [facility] [address] [id number] [place] [address]- [address] Jan, [facility] [place] [facility] [address] [id number] [place] [address] Jan, [facility] [place] [facility] [address] [id number] [place] [address]- [address] Dec, [facility] [place] [facility] [address] [id number] [place] [address] Dec, [facility] [place] [facility] [address] [id number] [place] [address] Dec, [facility] [place] [facility] [address] [id number] [place] [address] Dec, [facility] [place] [facility] [address] [id number] [place] [address] Dec, [facility] [place] [facility] [address] [id number] [place] [address] Dec, [facility] [place] [facility] [address] [id number] [place] [address] Oct, [facility] [place] [facility] [address] [id number] [place] [address] Oct, [facility] [place] [facility] [address] [id number] [place] [address] September, [facility] [place] [facility] [address] [id number] [place] [address] September, [facility] [place] [facility] [address] [id number] [place] [address] September, [facility] [place] [facility] [address] [id number] [place] [address] September, [facility] [place] [facility] [address] [id number] [place] [address] September, [facility] [place] [facility] [address] [id number] [place] [address] September, [facility] [place] [facility] [address] [id number] [place] [address] Aug, [facility] [place] [facility] [address] [id number] [place] [address] Aug, [facility] [place] [facility] [address] [id number] [place] [address] Aug, [facility] [place] [facility] [address] [id number] [place] [address] Aug, [facility] [place] [facility] [address] [id number] [place] [address] Jul, [facility] [place] [facility] [address] [id number], [place] [address] Jul, [facility] [place] [facility] [address] [id number] [place] [address] Jun, [facility] [place] [facility] [address] [id number] [place] [address] Jun, [facility] [place] [facility] [address] [id number] [place] [address] May, [facility] [place] [facility] [address] [id number] [place] [address] May, [facility] [address] [id number] [place] [address] Jan, [facility] [address] [id number] [place] [address] Dec, [facility] [address] [id number] [place] [address] Jun, [facility] [address] [id number] [place] [address] May, [facility] [address] [id number] [place] [address] Nov, [facility] [address] [id number] [place] [address] September, [facility] [address] [id number] [place] [address] Aug, [facility] [address] [id number] [place] [address] Aug, [facility] [address] [id number] [place] [address] Aug, [facility] [address] [id number] [place] [address] Aug, [facility] [address] [id number] [place] [address] Nov, [facility] [address] [id number] [place] [address] Oct, [facility] [place] [facility] [address] [id number] [place] [address] Jul, [facility] [place] [facility] [address] [id number] [place] [address] Feb, [facility] [address] [id number] [place] [address] Feb, [facility] [address] [facility] [id number], [place] [address] Apr, [facility] [address] [id number], [place] [address] Apr, [facility] [address] [facility] [id number][place] [address] Feb, [facility] [address] [id number], [place] [address] Feb, [facility] [address] [facility] [id number][place] [id number] Jul, IMMUNIZATIONS No Known Immunizations SOCIAL HISTORY [...]
--- NOTE | 2018-09-15 23:04 | NUR ---
Dr. Matthews; Leonard De La Rosa; Shanique, Rt; Kellie, RN; Steven, RN; Bart tech; ORALIA Shirley present. 222 Pt bagged by Leonard eD La Rosa, O2 sat 100% 2228 Igor 50 mg administered by ORALIA Harris-pt fighting, 02 sat 93% 2229 Succ 100 mg administered by Oralia Harris 223 pt intubated and bagged, 0
--- OUTSIDE RECORDS SUMMARY | 2018-09-15 23:04 | XMS REPORT | Continuity of Care Document ---
Author Organization Unknown Address Unknown Allergies Active Description Code Type Severity Reaction Onset Reported/Identified Relationship to Patient Clinical Status Yes FLUORESCEIN UNKNOWN UNKNOWN Yes HALDOL UNKNOWN UNKNOWN Yes LATEX, NATURAL RUBBER UNKNOWN UNKNOWN Yes Haldol Drug Allergy N/A N/A 07/22/2008 Yes Haldol Drug Allergy 07/22/2008 Yes latex [id number] Drug Allergy Moderate N/A 08/12/2010 Yes chlorpromazine HCl [id number] Drug Allergy Mild N/A 08/12/2010 Yes haloperidol [id number] Drug Allergy Mild N/A 08/12/2010 Yes Haloperidol Lactate [id number] Drug Allergy Mild N/A 08/12/2010 Yes Thorazine [...] TAB 10 MG (ZESTRIL) Dose(s) 09/15/2017 09/21/2017 Daily&09 HYDROCODONE/APAP 7.5/325 TAB (ALFREDO-TAB 7.5/325) TAB 09/15/2017 [...] 2 % (BACTROBAN) cristy 09/18/2017 09/27/2017 TID&0800,1400,2000 SMZ/TMP DS TAB (SEPTRA DS) (Bactrim DS) TAB 10/05/2017 10/05/2017 ONCE&2048 HYDROXYZINE TAB 25 MG (ATARAX) MG 11/04/2017 11/04/2017 ONCE&2056 CLONIDINE TAB 0.1 MG (CATAPRES) MG 11/04/2017 11/04/2017 ONCE&2212 CLONIDINE TAB 0.1 MG (CATAPRES) MG 11/04/2017 11/04/2017 ONCE&2241 TRAMADOL TAB 50 MG (ULTRAM) MG 11/04/2017 ONCE&2247 LISINOPRIL TAB 10 MG (ZESTRIL) MG 11/04/2017 11/04/2017 ONCE&2325 ONDANSETRON VIAL INJ 4 MG/2CC (ZOFRAN 2CC VIAL) MG 01/09/2018 01/09/2018 ONCE&2127 HYDRALAZINE 1CC VIAL INJ 20 MG/CC (APRESOLINE 1CC VIAL) MG 01/09/2018 01/09/2018 ONCE&2130 NORMAL SALINE 500CC IV BAG INJ 0.9 % (NS 500CC IV BAG) ml 01/09/2018 01/09/2018 ONCE&2130 NORMAL SALINE 500CC IV BAG INJ 0.9 % (NS 500CC IV BAG) ml 01/09/2018 01/09/2018 ONCE&2200 FENTANYL INJ 100 MCG/2CC VIAL MCG 01/09/2018 01/09/2018 ONCE&2302 PANTOPRAZOLE VIAL INJ 40 MG (PROTONIX IV) MG 01/09/2018 01/09/2018 ONCE&2359 ONDANSETRON VIAL INJ 4 MG/2CC (ZOFRAN 2CC VIAL) MG 01/10/2018 01/10/2018 ONCE&0027 POLY/BACI/NEOM OINT OINT (NEOSPORIN) cristy 04/16/2018 04/16/2018 ONCE&1459 CEFTRIAXONE INJ 1 GM (ROCEPHIN) GM 04/16/2018 04/16/2018 ONCE&1459 Problems Date Dx Coded Attending Type Code Diagnosis Diagnosed By 12/20/2007 YVES BLEVINS MD 250.02 DIABETES II UNCONTROLLED 12/20/2007 YVES BLEVINS MD 338.4 PAIN CHRONIC SYNDROME 12/20/2007 MELIZA THORNTON APRN 250.02 DIABETES II UNCONTROLLED 12/20/2007 MELIZA THORNTON APRN 338.4 PAIN CHRONIC SYNDROME 12/20/2007 YVES BLEVINS MD 250.02 DIABETES II UNCONTROLLED 12/20/2007 YVES BLEVINS MD 338.4 PAIN CHRONIC SYNDROME 12/20/2007 ASHLYN CEDILLO WILL CALL CLERK, MELIZA N 250.02 DIABETES II UNCONTROLLED 12/20/2007 GOLDBERG CASHERO WILL CALL CLERK, MELIZA N 338.4 PAIN CHRONIC SYNDROME 12/20/2007 GOLDBERG CASHERO WILL CALL CLERK, MELIZA N 250.02 DIABETES II UNCONTROLLED 12/20/2007 GOLDBERG CASHERO WILL CALL CLERK, MELIZA N 338.4 PAIN CHRONIC SYNDROME 12/20/2007 BURROUGHS DO, RACIEL K 250.02 DIABETES II UNCONTROLLED 12/20/2007 BURROUGHS DO, RACIEL K 338.4 PAIN CHRONIC SYNDROME 12/20/2007 GOLDBERG CASHERO WILL CALL CLERK, MELIZA N 250.02 DIABETES II UNCONTROLLED 12/20/2007 GOLDBERG CASHERO WILL CALL CLERK, MELIZA N 338.4 PAIN CHRONIC SYNDROME 12/20/2007 GOLDBERG CASHERO WILL CALL CLERK, MELIZA N 250.02 DIABETES II UNCONTROLLED 12/20/2007 GOLDBERG CASHERO WILL CALL CLERK, MELIZA N 338.4 PAIN CHRONIC SYNDROME 12/20/2007 GOLDBERG NGUYEN JOSEN, MELIZA N 250.02 DIABETES II UNCONTROLLED 12/20/2007 GOLDBERG NGUYEN JOSEN, MELIZA N 338.4 PAIN CHRONIC SYNDROME 12/20/2007 GOLDBERG NGUYEN WILL CALL CLERK, MELIZA N 250.02 DIABETES II UNCONTROLLED 12/20/2007 GOLDBERG NGUYEN WILL CALL CLERK, MELIZA N 338.4 PAIN CHRONIC SYNDROME 12/20/2007 BURROUGHS DO, RACIEL K 250.02 DIABETES II UNCONTROLLED 12/20/2007 BURROUGHS DO, RACIEL K 338.4 PAIN CHRONIC SYNDROME 12/20/2007 BURROUGHS DO, RACIEL K 250.02 DIABETES II UNCONTROLLED 12/20/2007 BURROUGHS DO, RACIEL K 338.4 PAIN CHRONIC SYNDROME 12/29/2007 YVES BLEVINS MD 250.00 DIABETES MELLITUS 12/29/2007 GOLDBERG LAKSHMIMELIZA PERALES APRN N 250.00 DIABETES MELLITUS 12/29/2007 YVES BLEVINS MD 250.00 DIABETES MELLITUS 12/29/2007 GOLDBERG CASHMELIZA PERALES APRN N 250.00 DIABETES MELLITUS 12/29/2007 GOLDBERG LAKSHMIAMARA PERALES APRNCY N 250.00 DIABETES MELLITUS 12/29/2007 RACIEL BURROUGHS DO K 250.00 DIABETES MELLITUS 12/29/2007 GOLDBERG NGUYEN AMARA FELIXCY N 250.00 DIABETES MELLITUS 12/29/2007 GOLDBERG NGUYEN AMARA FELIXCY N 250.00 DIABETES MELLITUS 12/29/2007 ASHLYN CEDILLO ELVIRA, MELIZA N 250.00 DIABETES MELLITUS 12/29/2007 GOLDBERG NGUYEN WILL CALL CLERK, MELIZA N 250.00 DIABETES MELLITUS 12/29/2007 BURROUGHS DO, RACIEL K 250.00 DIABETES MELLITUS 12/29/2007 BURROUGHS DO, RACIEL K 250.00 DIABETES MELLITUS 10/16/2008 YVES BLEVINS MD 250.60 DIABETES MELLITUS DIABETIC PERIPHERAL NEUROPATHY TYPE II 10/16/2008 GOLDBERG LAKSHMIANGELLA FELIX, MELIZA N 250.60 DIABETES MELLITUS DIABETIC PERIPHERAL NEUROPATHY TYPE II 10/16/2008 YVES BLEVINS MD 250.60 DIABETES MELLITUS DIABETIC PERIPHERAL NEUROPATHY TYPE II 10/16/2008 GOLDBERG LAKSHMIANGELLA FELIX, MELIZA N 250.60 DIABETES MELLITUS DIABETIC PERIPHERAL NEUROPATHY TYPE II 10/16/2008 GOLDBERGMARCELLO MARTINSANGELLA FELIX, MELIZA N 250.60 DIABETES MELLITUS DIABETIC PERIPHERAL NEUROPATHY TYPE II 10/16/2008 KEEGAN BURROUGHS DOA K 250.60 DIABETES MELLITUS DIABETIC PERIPHERAL NEUROPATHY TYPE II 10/16/2008 ASHLYN MARTINSANGELLA FELIX, MELIZA N 250.60 DIABETES MELLITUS DIABETIC PERIPHERAL NEUROPATHY TYPE II 10/16/2008 GOLDBERGMARCELLO CEDILLO ELVIRA, MELIZA N 250.60 DIABETES MELLITUS DIABETIC PERIPHERAL NEUROPATHY TYPE II 10/16/2008 ASHLYN CEDILLO ELVIRA, MELIZA N 250.60 DIABETES MELLITUS DIABETIC PERIPHERAL NEUROPATHY TYPE II 10/16/2008 ASHLYN CEDILLO ELVIRA, MELIZA N 250.60 DIABETES MELLITUS DIABETIC PERIPHERAL NEUROPATHY TYPE II 10/16/2008 BURROUGHS DO, RACIEL K 250.60 DIABETES MELLITUS DIABETIC PERIPHERAL NEUROPATHY TYPE II 10/16/2008 BURROUGHS DO RACIEL K 250.60 DIABETES MELLITUS DIABETIC PERIPHERAL NEUROPATHY TYPE II 10/31/2008 YVES BLEVINS MD 250.6 NEUROPATHY DIABETIC 10/31/2008 GOLDBERG LAKSHMIANGELLA FELIX, MELIZA N 250.6 NEUROPATHY DIABETIC 10/31/2008 YVES BLEVINS MD 250.6 NEUROPATHY DIABETIC 10/31/2008 GOLDBERG LAKSHMIAMARA PERALES APRNCY N 250.6 NEUROPATHY DIABETIC 10/31/2008 GOLDBERG LAKSHMIANGELLA FELIX MELIZA N 250.6 NEUROPATHY DIABETIC 10/31/2008 RACIEL BURROUGHS DO K 250.6 NEUROPATHY DIABETIC 10/31/2008 GOLDBERG LAKSHMIANGELLA FELIX, MELIZA N 250.6 NEUROPATHY DIABETIC 10/31/2008 GOLDBERG LAKSHMIANGELLA FELIX MELIZA N 250.6 NEUROPATHY DIABETIC 10/31/2008 GOLDBERG CASHERO WILL CALL CLERK, MELIZA N 250.6 NEUROPATHY DIABETIC 10/31/2008 GOLDBERG CASHERO WILL CALL CLERK, MELIZA N 250.6 NEUROPATHY DIABETIC 10/31/2008 BURROUGHS DO, RACIEL K 250.6 NEUROPATHY DIABETIC 10/31/2008 BURROUGHS DO, RACIEL K 250.6 NEUROPATHY DIABETIC 01/12/2009 YVES BELVINS MD 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 01/12/2009 GOLDBERG CASHERO WILL CALL CLERK, MELIZA N 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 01/12/2009 YVES BLEVINS MD 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 01/12/2009 GOLDBERG CASHERO WILL CALL CLERK, MELIZA N 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 01/12/2009 GOLDBERG CASHERO WILL CALL CLERK, MLEIZA N 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 01/12/2009 BURROUGHS DO, RACIEL K 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 01/12/2009 GOLDBERG CASHERO WILL CALL CLERK, MELIZA N 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 01/12/2009 GOLDBERG CASHERO WILL CALL CLERK, MELIZA N 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 01/12/2009 GOLDBERG CASHERO WILL CALL CLERK, MELIZA N 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 01/12/2009 GOLDBERG CASHERO WILL CALL CLERK, MELIZA N 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 01/12/2009 BURROUGHS DO, RACIEL K 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 01/12/2009 BURROUGHS DO, RACIEL K 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 04/13/2009 YVES BLEVINS MD 309.0 ADJUSTMENT DISORDER WITH DEPRESSED MOOD 04/13/2009 YVES BLEVINS MD 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 04/13/2009 GOLDBERG CASHANGELLA FELIX, MELIZA N 309.0 ADJUSTMENT DISORDER WITH DEPRESSED MOOD 04/13/2009 MELIZA THORNTON APRN N 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 04/13/2009 YVES BLEVINS MD 309.0 ADJUSTMENT DISORDER WITH DEPRESSED MOOD 04/13/2009 YVES BLEVINS MD 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 04/13/2009 ASHLYN ECDILLO APRN, MELIZA N 309.0 ADJUSTMENT DISORDER WITH DEPRESSED MOOD 04/13/2009 MELIZA THORNTON APRN N 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 04/13/2009 GOLDBERG CASHERO WILL CALL CLERK, MELIZA N 309.0 ADJUSTMENT DISORDER WITH DEPRESSED MOOD 04/13/2009 GOLDBERG CASHERO WILL CALL CLERK, MELIZA N 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 04/13/2009 BURROUGHS DO, RACIEL K 309.0 ADJUSTMENT DISORDER WITH DEPRESSED MOOD 04/13/2009 BURROUGHS DO, RACIEL K 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 04/13/2009 GOLDBERG CASHERO WILL CALL CLERK, MELIZA N 309.0 ADJUSTMENT DISORDER WITH DEPRESSED MOOD 04/13/2009 GOLDBERG CASHERO WILL CALL CLERK, MELIZA N 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 04/13/2009 GOLDBERG CASHERO WILL CALL CLERK, MELIZA N 309.0 ADJUSTMENT DISORDER WITH DEPRESSED MOOD 04/13/2009 GOLDBERG CASHERO WILL CALL CLERK, MELIZA N 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 04/13/2009 GOLDBERG CASHERO WILL CALL CLERK, MELIZA N 309.0 ADJUSTMENT DISORDER WITH DEPRESSED MOOD 04/13/2009 GOLDBERG CASHERO WILL CALL CLERK, MELIZA N 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 04/13/2009 GOLDBERG CASHERO WILL CALL CLERK, MELIZA N 309.0 ADJUSTMENT DISORDER WITH DEPRESSED MOOD 04/13/2009 GOLDBERG CASHERO WILL CALL CLERK, MELIZA N 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 04/13/2009 BURROUGHS DO, RACIEL K 309.0 ADJUSTMENT DISORDER WITH DEPRESSED MOOD 04/13/2009 BURROUGHS DO, RACIEL K 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 04/13/2009 BURROUGHS DO, RACIEL K 309.0 ADJUSTMENT DISORDER WITH DEPRESSED MOOD 04/13/2009 BURROUGHS DO, RACIEL K 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 01/07/2010 YVES BLEVINS MD 535.50 GASTRITIS UNSPEC 01/07/2010 GOLDBERG CASHERO WILL CALL CLERK, MELIZA N 535.50 GASTRITIS UNSPEC 01/07/2010 YVES BLEVINS MD 535.50 GASTRITIS UNSPEC 01/07/2010 GOLDBERG CASHERO WILL CALL CLERK, MELIZA N 535.50 GASTRITIS UNSPEC 01/07/2010 GOLDBERG CASHERO WILL CALL CLERK, MELIZA N 535.50 GASTRITIS UNSPEC 01/07/2010 BURROUGHS DO, RACIEL K 535.50 GASTRITIS UNSPEC 01/07/2010 GOLDBERG CASHERO WILL CALL CLERK, MELIZA N 535.50 GASTRITIS UNSPEC 01/07/2010 GOLDBERG CASHERO WILL CALL CLERK, MELIZA N 535.50 GASTRITIS UNSPEC 01/07/2010 GOLDBERG CASHERO WILL CALL CLERK, MELIZA N 535.50 GASTRITIS UNSPEC 01/07/2010 GOLDBERG CASHERO WILL CALL CLERK, MELIZA N 535.50 GASTRITIS UNSPEC 01/07/2010 BURROUGHS DO, RACIEL K 535.50 GASTRITIS UNSPEC 01/07/2010 BURROUGHS DO, RACIEL K 535.50 GASTRITIS UNSPEC 07/19/2010 YVES BLEVINS MD 296.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 07/19/2010 YVES BLEVINS MD 682.9 CELLULITIS 07/19/2010 GOLDBERG CASHERO WILL CALL CLERK, MELIZA N 296.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 07/19/2010 GOLDBERG CASHERO WILL CALL CLERK, MELIZA N 682.9 CELLULITIS 07/19/2010 YVES BLEVINS MD 296.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 07/19/2010 YVES BLEVINS MD 682.9 CELLULITIS 07/19/2010 GOLDBERG CASHERO WILL CALL CLERK, MELIZA N 296.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 07/19/2010 GOLDBERG CASHERO WILL CALL CLERK, MELIZA N 682.9 CELLULITIS 07/19/2010 GOLDBERG CASHERO WILL CALL CLERK, MELIZA N 296.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 07/19/2010 GOLDBERG CASHERO WILL CALL CLERK, MELIZA N 682.9 CELLULITIS 07/19/2010 BURROUGHS DO, RACIEL K 296.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 07/19/2010 BURROUGHS DO, RACIEL K 682.9 CELLULITIS 07/19/2010 GOLDBERG CASHERO WILL CALL CLERK, MELIZA N 296.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 07/19/2010 GOLDBERG CASHERO WILL CALL CLERK, MELIZA N 682.9 CELLULITIS 07/19/2010 GOLDBERG CASHERO WILL CALL CLERK, MELIZA N 296.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 07/19/2010 GOLDBERG CASHERO WILL CALL CLERK, MELIZA N 682.9 CELLULITIS 07/19/2010 GOLDBERG CASHERO WILL CALL CLERK, MELIZA N 296.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 07/19/2010 GOLDBERG CASHERO WILL CALL CLERK, MELIZA N 682.9 CELLULITIS 07/19/2010 GOLDBERG CASHERO WILL CALL CLERK, MELIZA N 296.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 07/19/2010 GOLDBERG CASHERO WILL CALL CLERK, MELIZA N 682.9 CELLULITIS 07/19/2010 BURROUGHS DO, RACIEL K 296.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 07/19/2010 BURROUGHS DO, RACIEL K 682.9 CELLULITIS 07/19/2010 BURROUGHS DO, RACIEL K 296.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 07/19/2010 RACIEL BURROUGHS DO 682.9 CELLULITIS 08/12/2010 Ot 250.00 08/12/2010 Ot [...] OPEN LOWER LIMB 10/28/2010 MELIZA THORNTON APRN 894.0 WOUND OPEN LOWER LIMB 10/28/2010 YVES BLEVINS MD 894.0 WOUND OPEN LOWER LIMB 10/28/2010 MELIZA THORNTON APRN 894.0 WOUND OPEN LOWER LIMB 10/28/2010 MELIZA THORNTON APRN N 894.0 WOUND OPEN LOWER LIMB 10/28/2010 RACIEL BURROUGHS DO Precious 894.0 WOUND OPEN LOWER LIMB 10/28/2010 MELIZA THORNTON APRN 894.0 WOUND OPEN LOWER LIMB 10/28/2010 MELIZA THORNTON APRN N 894.0 WOUND OPEN LOWER LIMB 10/28/2010 MELIZA THORNTON APRN N 894.0 WOUND OPEN LOWER LIMB 10/28/2010 MELIZA THORNTON APRN N 894.0 WOUND OPEN LOWER LIMB 10/28/2010 RACIEL BURROUGHS DO K 894.0 WOUND OPEN LOWER LIMB 10/28/2010 RACIEL BURROUGHS DO K 894.0 WOUND OPEN LOWER LIMB 11/03/2010 Ot 729.5 12/09/2010 Ot 250.60 12/09/2010 Ot 682.3 12/09/2010 Ot 707.15 12/09/2010 Ot 881.10 12/09/2010 Ot E000.8 12/09/2010 Ot E849.7 12/09/2010 Ot E928.9 12/09/2010 Ot V58.69 01/09/2011 Ot 250.60 01/09/2011 Ot 707.15 08/28/2011 YVES BLEVINS MD NODX NO DIAGNOSIS 08/28/2011 MELIZA THORNTON APRN N NODX NO DIAGNOSIS 08/28/2011 YVES BLEVINS MD NODX NO DIAGNOSIS 08/28/2011 AMARA THORNTON APRNCY N NODX NO DIAGNOSIS 08/28/2011 MELIZA THORNTON APRN N NODX NO DIAGNOSIS 08/28/2011 RACIEL BURROUGHS DO K NODX NO DIAGNOSIS 08/28/2011 MELIZA THORNTON APRN N NODX NO DIAGNOSIS 08/28/2011 MELIZA THORNTON APRN N NODX NO DIAGNOSIS 08/28/2011 MELIZA THORNTON APRN N NODX NO DIAGNOSIS 08/28/2011 MELIZA THORNTON APRN N NODX NO DIAGNOSIS 08/28/2011 BURROUGHS RACIEL JUAREZ K NODX NO DIAGNOSIS 08/28/2011 BURROUGHS , RACIEL K NODX NO DIAGNOSIS 09/01/2011 YVES BLEVINS MD 295.70 P SCHIZO AFFECTIVE 09/01/2011 YVES BLEVINS MD V58.69 MEDICATION HIGH RISK 09/01/2011 ASHLYN CEDILLO APRMELIZA Bruce 295.70 P SCHIZO AFFECTIVE 09/01/2011 GOLDBERGMARCELLO CEDILLO APRTeo MELIZA N V58.69 MEDICATION HIGH RISK 09/01/2011 YVES BLEVINS MD 295.70 P SCHIZO AFFECTIVE 09/01/2011 YVES BLEVINS MD V58.69 MEDICATION HIGH RISK 09/01/2011 GOLDBERG CASHERO WILL CALL CLERK, MELIZA N 295.70 P SCHIZO AFFECTIVE 09/01/2011 GOLDBERG CASHERO WILL CALL CLERK, MELIZA N V58.69 MEDICATION HIGH RISK 09/01/2011 GOLDBERG CASHERO WILL CALL CLERK, MELIZA N 295.70 P SCHIZO AFFECTIVE 09/01/2011 GOLDBERG CASHERO WILL CALL CLERK, MELIZA N V58.69 MEDICATION HIGH RISK 09/01/2011 BURROUGHS DO, RACIEL K 295.70 P SCHIZO AFFECTIVE 09/01/2011 BURROUGHS DO, RACIEL K V58.69 MEDICATION HIGH RISK 09/01/2011 GOLDBERG CASHERO WILL CALL CLERK, MELIZA N 295.70 P SCHIZO AFFECTIVE 09/01/2011 GOLDBERG CASHERO WILL CALL CLERK, MELIZA N V58.69 MEDICATION HIGH RISK 09/01/2011 GOLDBERG CASHERO WILL CALL CLERK, MELIZA N 295.70 P SCHIZO AFFECTIVE 09/01/2011 GOLDBERG CASHERO WILL CALL CLERK, MELIZA N V58.69 MEDICATION HIGH RISK 09/01/2011 GOLDBERG CASHERO WILL CALL CLERK, MELIZA N 295.70 P SCHIZO AFFECTIVE 09/01/2011 GOLDBERG CASHERO WILL CALL CLERK, MELIZA N V58.69 MEDICATION HIGH RISK 09/01/2011 GOLDBERG CASHERO WILL CALL CLERK, MELIZA N 295.70 P SCHIZO AFFECTIVE 09/01/2011 GOLDBERG CASHERO WILL CALL CLERK, MELIZA N V58.69 MEDICATION HIGH RISK 09/01/2011 [...] MD 356.9 UNSPECIFIED IDIOPATHIC PERIPHERAL NEUROPATHY 06/08/2012 AMARA THORNTON APRNCY N 250.03 DIABETES MELLITUS WITHOUT MENTION OF COMPLICATION TYPE I [ JUVENILE TYPE] UNCONTROLLED 06/08/2012 GOLDBERG CASHMELIZA PERALES APRN N 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 06/08/2012 GOLDBERG CASHERO WILL CALL CLERK, MELIZA N 356.9 UNSPECIFIED IDIOPATHIC PERIPHERAL NEUROPATHY 06/08/2012 YVES BLEVINS MD 250.03 DIABETES MELLITUS WITHOUT MENTION OF COMPLICATION TYPE I [JUVENILE TYPE] UNCONTROLLED 06/08/2012 YVES BLEVINS MD 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 06/08/2012 YVES BLEVINS MD 356.9 UNSPECIFIED IDIOPATHIC PERIPHERAL NEUROPATHY 06/08/2012 GOLDBERG CASHMELIZA PERALES APRN N 250.03 DIABETES MELLITUS WITHOUT MENTION OF COMPLICATION TYPE I [ JUVENILE TYPE] UNCONTROLLED 06/08/2012 GOLDBERG CASHAMARA PERALES APRNCY N 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 06/08/2012 MELIZA THORNTON APRN N 356.9 UNSPECIFIED IDIOPATHIC PERIPHERAL NEUROPATHY 06/08/2012 GOLDBERG LAKSHMIMELIZA PERALES APRN N 250.03 DIABETES MELLITUS WITHOUT MENTION OF COMPLICATION TYPE I [ JUVENILE TYPE] UNCONTROLLED 06/08/2012 GOLDBERG CASHERO ELVIRA, MELIZA N 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 06/08/2012 GOLDBERG CASHANGELLA FELIX, MELIZA N 356.9 UNSPECIFIED IDIOPATHIC PERIPHERAL NEUROPATHY 06/08/2012 BURROUGHS DO, RACIEL K 250.03 DIABETES MELLITUS WITHOUT MENTION OF COMPLICATION TYPE I [JUVENILE TYPE] UNCONTROLLED 06/08/2012 BURROUGHS DO, RACIEL K 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 06/08/2012 BURROUGHS DO, RACIEL K 356.9 UNSPECIFIED IDIOPATHIC PERIPHERAL NEUROPATHY 06/08/2012 GOLDBERG CASHERO ELVIRA, MELIZA N 250.03 DIABETES MELLITUS WITHOUT MENTION OF COMPLICATION TYPE I [ JUVENILE TYPE] UNCONTROLLED 06/08/2012 GOLDBERG CASHERO WILL CALL CLERK, MELIZA N 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 06/08/2012 GOLDBERG CASHERO WILL CALL CLERK, MELIZA N 356.9 UNSPECIFIED IDIOPATHIC PERIPHERAL NEUROPATHY 06/08/2012 GOLDBERG CASHERO ELVIRA, MELIZA N 250.03 DIABETES MELLITUS WITHOUT MENTION OF COMPLICATION TYPE I [ JUVENILE TYPE] UNCONTROLLED 06/08/2012 GOLDBERG CASHAMARA PERALES APRNCY N 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 06/08/2012 AMARA THORNTON APRNCY N 356.9 UNSPECIFIED IDIOPATHIC PERIPHERAL NEUROPATHY 06/08/2012 AMARA THORNTON APRNCY N 250.03 DIABETES MELLITUS WITHOUT MENTION OF COMPLICATION TYPE I [ JUVENILE TYPE] UNCONTROLLED 06/08/2012 ASHLYN CEDILLO APRNAMARACY N 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 06/08/2012 ASHLYN CEDILLO APRNAMARACY N 356.9 UNSPECIFIED IDIOPATHIC PERIPHERAL NEUROPATHY 06/08/2012 AMARA THORNTON APRNCY N 250.03 DIABETES MELLITUS WITHOUT MENTION OF COMPLICATION TYPE I [ JUVENILE TYPE] UNCONTROLLED 06/08/2012 ASHLYN CEDILLO APRTeo MELIZA N 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 06/08/2012 ASHLYN CEDILLO APRNAMARACY N 356.9 UNSPECIFIED IDIOPATHIC PERIPHERAL NEUROPATHY 06/08/2012 BURROUGHS DO RACIEL K 250.03 DIABETES MELLITUS WITHOUT MENTION OF COMPLICATION TYPE I [JUVENILE TYPE] UNCONTROLLED 06/08/2012 BURROUGHS DO RACIEL K 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 06/08/2012 BURROUGHS DO, RACIEL K 356.9 UNSPECIFIED IDIOPATHIC PERIPHERAL NEUROPATHY 06/08/2012 BURROUGHS DO RACEIL K 250.03 DIABETES MELLITUS WITHOUT MENTION OF COMPLICATION TYPE I [JUVENILE TYPE] UNCONTROLLED 06/08/2012 BURROUGHS DO, RACIEL K 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 06/08/2012 BURROUGHS DO RACIEL K 356.9 UNSPECIFIED IDIOPATHIC PERIPHERAL NEUROPATHY 12/09/2012 ASHLYN MARTINSMELIZA PERALES APRN N 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 12/09/2012 GEN HERNANDEZ, YVES 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 12/09/2012 GOLDBERG LAKSHMIMELIZA PERALES APRN N 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 12/09/2012 MELIZA THORNTON APRN N 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 12/09/2012 MANJEET JUAREZ RACIEL K 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 12/09/2012 MELIZA THORNTON APRN N 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 12/09/2012 GOLDBERG LAKSHMIMELIZA PERALES APRN N 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 12/09/2012 ASHLYN CEDILLO APRMELIZA Bruce N 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 12/09/2012 GOLDBERG LAKSHMIMELIZA PERALES APRN N 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 12/09/2012 BURROUGHS DO, RACIEL K 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 12/09/2012 BURROUGHS DO, RACIEL K 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 08/23/2013 GOLDBERG LAKSHMIMELIZA PERALES APRN N 110.4 DERMATOPHYTOSIS OF FOOT 08/23/2013 ASHLYN MARTINSAMARA PERALES APRNCY N 700 CORNS AND CALLOSITIES 08/23/2013 GOLDBERGMARCELLO MARTINSAMARA PERALES APRNCY N 707.15 ULCER OF OTHER PART OF FOOT 08/23/2013 GOLDBERG LAKSHMIANGELLA FELIX MELIZA N 110.4 DERMATOPHYTOSIS OF FOOT 08/23/2013 GOLDBERGMARCELLO MARTINSAMARA PERALES APRNCY N 700 CORNS AND CALLOSITIES 08/23/2013 ASHLYN LAKSHMIANGELLA FELIX MELIZA N 707.15 ULCER OF OTHER PART OF FOOT 08/23/2013 BURROUGHS DO, RACIEL K 110.4 DERMATOPHYTOSIS OF FOOT 08/23/2013 BURROUGHS DO, RACIEL K 700 CORNS AND CALLOSITIES 08/23/2013 BURROUGHS DO, RACIEL K 707.15 ULCER OF OTHER PART OF FOOT 08/23/2013 ASHLYN MARTINSAMARA PERALES APRNCY N 110.4 DERMATOPHYTOSIS OF FOOT 08/23/2013 ASHLYN CEDILLO AMARA FELIXCY N 700 CORNS AND CALLOSITIES 08/23/2013 GOLDBERG LAKSHMIANGELLA FELIX MELIZA N 707.15 ULCER OF OTHER PART OF FOOT 08/23/2013 GOLDBERG LAKSHMIANGELLA FELIX MELIZA N 110.4 DERMATOPHYTOSIS OF FOOT 08/23/2013 GOLDBERGMARCELLO MARTINSANGELLA WILL CALL CLERK, MELIZA N 700 CORNS AND CALLOSITIES 08/23/2013 GOLDBERG LAKSHMIANGELLA WILL CALL CLERK, MELIZA N 707.15 ULCER OF OTHER PART OF FOOT 08/23/2013 GOLDBERG LAKSHMIANGELLA FELIX MELIZA N 110.4 DERMATOPHYTOSIS OF FOOT 08/23/2013 GOLDBERGMARCELLO MARTINSAMARA PERALES APRNCY N 700 CORNS AND CALLOSITIES 08/23/2013 GOLDBERG LAKSHMIERO WILL CALL CLERK, MELIZA N 707.15 ULCER OF OTHER PART OF FOOT 08/23/2013 ASHLYN CEDILLO APRN, MELIZA N 110.4 DERMATOPHYTOSIS OF FOOT 08/23/2013 ASHLYN CEDILLO WILL CALL CLERK, MELIZA N 700 CORNS AND CALLOSITIES 08/23/2013 ASHLYN CEDILLO WILL CALL CLERK, MELIZA N 707.15 ULCER OF OTHER PART [...] RACIEL K 110.1 ONYCHOMYCOSIS 09/30/2013 ASHLYN CEDILLO APRN, MELIZA N 110.1 ONYCHOMYCOSIS 09/30/2013 ASHLYN CEDILLO WILL CALL CLERK, MELIZA N 110.1 ONYCHOMYCOSIS 09/30/2013 ASHLYN CEDILLO WILL CALL CLERK, MELIZA N 110.1 ONYCHOMYCOSIS 09/30/2013 ASHLYN CEDILLO WILL CALL CLERK, MELIZA N 110.1 ONYCHOMYCOSIS 09/30/2013 BURROUGHS DO, RACIEL K 110.1 ONYCHOMYCOSIS 09/30/2013 BURROUGHS DO, RACIEL K 110.1 ONYCHOMYCOSIS 01/03/2014 ASHLYN CEDILLO WILL CALL CLERK, MELIZA N 724.3 SCIATICA 01/03/2014 GOLDBERGMARCELLO MARTINSERO WILL CALL CLERK, MELIZA N 724.3 SCIATICA 01/03/2014 GOLDBERG LAKSHMIERO WILL CALL CLERK, MELIZA N 724.3 SCIATICA 01/03/2014 BURROUGHS DO, RACIEL K 724.3 SCIATICA 01/03/2014 BURROUGHS DO, RACIEL K 724.3 SCIATICA 07/18/2014 BURROUGHS DO, RACIEL K 784.42 DYSPHONIA 07/18/2014 BURROUGHS DO, RACIEL K 786.07 WHEEZING 07/18/2014 BURROUGHS DO, RACIEL K 786.2 COUGH 07/18/2014 BURROUGHS DO, RACIEL K V49.71 GREAT TOE AMPUTATION STATUS 07/18/2014 RACIEL BURROUGHS DO K 784.42 DYSPHONIA 07/18/2014 KEEGAN BURROUGHS DOA K 786.07 WHEEZING 07/18/2014 RACIEL BURROUGHS DO K 786.2 COUGH 07/18/2014 RACIEL BURROUGHS DO K V49.71 GREAT TOE AMPUTATION STATUS 08/02/2014 KEEGAN BURROUGHS DOA K 305.1 NONDEPENDENT TOBACCO USE DISORDER 08/02/2014 KEEGAN BURROUGHS DOA K 401.1 HYPERTENSION, BENIGN ESSENTIAL 08/02/2014 KEEGAN BURROUGHS DOA K V49.72 OTHER TOE(S) AMPUTATION STATUS 08/02/2014 KEEGAN BURROUGHS DOA K V65.42 COUNSELING ON SUBSTANCE USE AND ABUSE 08/02/2014 KEEGAN BURROUGHS DOA K 305.1 NONDEPENDENT TOBACCO USE DISORDER 08/02/2014 MANJEET JUAREZ RACIEL K 401.1 HYPERTENSION, BENIGN ESSENTIAL 08/02/2014 KEEGAN BURROUGHS DOA K V49.72 OTHER TOE(S) AMPUTATION STATUS 08/02/2014 KEEGAN BURROUGHS DOA K V65.42 COUNSELING ON SUBSTANCE USE AND [...] SIENA PAEZ MD Ot 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 04/26/2015 SIENA PAEZ MD [...] 01/10/2016 Ot E920.8 ACC-CUTTING INSTRUM NEC 01/29/2016 PHILIPPE HERNANDEZ, SIENA Carr Ot E11.622 TYPE 2 DIABETES MELLITUS WITH OTHER SKIN 01/29/2016 SIENA PAEZ MD Ot F17.298 NICOTINE DEPENDENCE, OTH TOBACCO PRODUCT 01/29/2016 SIENA PAEZ MD Ot I10 ESSENTIAL (PRIMARY) HYPERTENSION 01/29/2016 SIENA PAEZ MD Ot 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 01/29/2016 SIENA PAEZ MD [...] 08/28/2017 Pablo, Berenice-Andrzej W 595.9 CYSTITIS, UNSPECIFIED 08/28/2017, Berenice-Andrzej W N30.91 CYSTITIS, UNSPECIFIED WITH HEMATURIA [...] Berenice-Andrzej W 401.9 UNSPECIFIED ESSENTIAL HYPERTENSION 08/29/2017, Berenice-Andrzje W 535.00 08/29/2017 Pablo, Berenice-Andrzej W 595.9 [...] CYSTITIS, UNSPECIFIED 08/29/2017 Pablo, Berenice-Andrzej W 707.15 08/29/2017, Berenice-Andrzej W 786.2 08/29/2017 Pablo, Berenice-Andrzej W [...] W R05 COUGH 08/30/2017 Pablo, Berenice-Andrzej W 041.19 08/30/2017 Pablo,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 02/18/2012 10:55:00 Document Registration [id number] 01/10/2011 00:00:00 Document Registration [id number] 12/10/2010 00:00:00 Document Registration [id number] 11/04/2010 12:05:00 Document Registration [id number] 11/03/2010 14:53:00 Document Registration [id number] 10/03/2010 15:10:00 Document Registration [id number] 09/10/2010 09:38:00 Document Registration [id number] 09/04/2010 14:30:00 Document Registration [id number] 09/01/2010 11:50:00 Document Registration [id number] 08/12/2010 19:14:00 Document Registration [id number] 07/23/2018 11:50:00 07/23/2018 23:59:59 CLS Outpatient GEN HERNANDEZ, [facility] [id number] 12/10/2017 10:20:00 Document Registration [id number] 04/16/2018 14:36:00 04/16/2018 15:15:00 DIS Outpatient Nelson [facility] ER [id number] 01/09/2018 21:10:00 01/10/2018 01:05:00 DIS Outpatient Damon, [facility] ER [id number] 10/01/2017 00:00:00 11/10/2017 06:53:00 DIS Outpatient UNLISTED, UNLISTED [id number] 11/04/2017 20:29:00 11/05/2017 00:42:00 [facility] [id number] 10/05/2017 19:11:00 10/05/2017 21:13:00 [facility] [id number] 09/14/2017 12:14:00 09/18/2017 10:33:00 DIS Inpatient Juliana [facility] MED-SURG [id number] 08/28/2017 12:01:00 08/30/2017 14:50:00 DIS Inpatient Nataly Pablo [facility] MED-SURG [id number] 12/05/2016 03:10:00 12/05/2016 04:42:00 [facility] [id number] 12/05/2016 03:31:06 Document Registration [id number] 09/16/2017 10:21:00 Document Registration
[2018-09-15 23:05] LABS: ABG BASE EXCESS -2.2 MMOL/L (-2.5-2.5); ABG OXYGEN SATURATION 100 % (94-100); ABG PCO2 35 MMHG (35-45); ABG PH 7.41 (7.37-7.43); ABG PO2 192 MMHG (79-93); ALLENS TEST YES-POS
[2018-09-15 23:06] LABS: INSPIRED O2 50%; PATIENT TEMP 97.5; VENTILATOR NO
[2018-09-15 23:07] LABS: TSH (THYROID ANALYZER) 1.98 UIU/ML (0.35-4.94)
--- NOTE | 2018-09-15 23:09 | NUR ---
continuation of previous note 223 pt intubated and bagged, O2 sat 100%, tube 21.5 cm at teeth 2231 16 fr carrington inserted by ORALIA Hopkins 2234 18 fr OG inserted 2256 liter LR administered in R AC by ORALIA Harris 2256 propofol drip 20 dagoberto/kg (rate of 12.2 ml/hr) administered in R hand by ORALIA Harris ventilator settings: 500 tidal volume, 16 R, 50 peep
--- NOTE | 2018-09-15 23:15 | NUR ---
O2 turned down by Shanique RT, to 30% at this time.
[2018-09-16] VITALS (29 sets, daily range): BP systolic 85–191; BP diastolic 55–110
[2018-09-16] MEDS: NS IV 1000 ML 1,000 ML IV SCH ×4 (03:10→19:42)
[2018-09-16 04:21] LABS: BASOPHILS % (AUTO) 0 % (0-10); EOSINOPHILS # (AUTO) 0.1 10^3/uL (0.0-0.3); EOSINOPHILS % (AUTO) 2 % (0-10); HEMATOCRIT 33 % (40-54); HEMOGLOBIN 11.9 G/DL (13.3-17.7); LYMPHOCYTES # (AUTO) 2.1 X 10^3 (1.0-4.0); LYMPHOCYTES % (AUTO) 31 % (12-44); MEAN CORPUSCULAR HEMOGLOBIN 34 PG (25-34); MEAN CORPUSCULAR HGB CONC 36 G/DL (32-36); MEAN CORPUSCULAR VOLUME 95 FL (80-99); MEAN PLATELET VOLUME 9.5 FL (7.4-10.4); MONOCYTES # (AUTO) 1.5 X 10^3 (0.0-1.0); MONOCYTES % (AUTO) 21 % (0-12); NEUTROPHILS # (AUTO) 3.1 X 10^3 (1.8-7.8); NEUTROPHILS % (AUTO) 45 % (42-75); PLATELET COUNT 175 10^3/uL (130-400); RED CELL DISTRIBUTION WIDTH 12.5 % (10.0-14.5); WHITE BLOOD COUNT 6.8 10^3/uL (4.3-11.0)
[2018-09-16 04:49] LABS: ABG BASE EXCESS -3.3 MMOL/L (-2.5-2.5); ABG OXYGEN SATURATION 99 % (94-100); ABG PCO2 31 MMHG (35-45); ABG PH 7.43 (7.37-7.43); ABG PO2 131 MMHG (79-93); ABG TCO2 21.6 MMOL/L (21.0-31.0)
[2018-09-16 04:50] LABS: ALANINE AMINOTRANSFERASE 24 U/L (0-55); ALBUMIN 3.4 GM/DL (3.2-4.5); ALKALINE PHOSPHATASE 81 U/L (40-136); BILIRUBIN,TOTAL 0.7 MG/DL (0.1-1.0); BUN/CREATININE RATIO 15; CALCIUM 8.3 MG/DL (8.5-10.1); CARBON DIOXIDE 16 MMOL/L (21-32); CHLORIDE 94 MMOL/L (98-107); CREATININE SERUM 0.82 MG/DL (0.60-1.30); GFR ESTIMATED > 60; GLUCOSE 99 MG/DL (70-105); MAGNESIUM 1.8 MG/DL (1.8-2.4); POTASSIUM 3.9 MMOL/L (3.6-5.0); TOTAL PROTEIN 5.5 GM/DL (6.4-8.2)
[2018-09-16 04:50] LABS: ALLENS TEST YES-POS; INSPIRED O2 30%
[2018-09-16 04:51] LABS: VENTILATOR YES
[2018-09-16 04:52] LABS: SODIUM 121 MMOL/L (135-145)
--- NOTE | 2018-09-16 05:47 | Diagnostic Imaging Report ---
INDICATION: Overdose. COMPARISON: None FINDINGS: Single frontal radiographic view of the chest was obtained and demonstrates indwelling endotracheal tube with tip at clavicular heads. Gastric tube terminates with tip in side port in stomach. Cardiac silhouette is borderline prominent. This, however, may be related to low lung volumes and portable technique. There is crowding of the central hilar structures. Some patchy left perihilar opacities are also noted. There is no large effusion or pneumothorax on either side. Bony structures show no gross acute abnormalities. IMPRESSION: 1. Low lung volumes with crowding of central hilar structures and probable patchy infiltrate on the left. Given the clinical history, aspiration should be considered as well. 2. Lines and tubes as above. 3. Borderline prominent cardiac silhouette, which again may be exaggerated by portable technique and low lung volumes. Dictated by: Dictated on workstation # [id number]
--- NOTE | 2018-09-16 05:49 | Pulmonary Consultation ---
History of Present Illness History of Present Illness Date of Consultation 09/16/18 05:44 Date of Admission Allergies and Home Medications Allergies Coded Allergies: latex (Unverified Allergy, Intermediate, 08/12/10) Haloperidol Lactate (Unverified Allergy, Mild, 08/12/10) chlorpromazine HCl (Unverified Allergy, Mild, 08/12/10) haloperidol (Unverified Allergy, Mild, 08/12/10) Home Medications Amitriptyline HCl 75 Mg Tablet, 75 MG PO HS, (Reported) Amlodipine Besylate 10 Mg Tablet, 10 MG PO DAILY, (Reported) Benztropine Mesylate 1 Mg Tablet, 1 MG PO TID, (Reported) Clindamycin HCl 300 Mg Capsule, 300 MG PO TID Prescribed by: WERNER DRIVER on 09/25/17 1619 Divalproex Sodium 500 Mg Tablet.dr, 500 MG PO QID, (Reported) Duloxetine HCl 60 Mg Capsule.dr, 60 MG PO DAILY, (Reported) Hydrocodone/Ibuprofen 1 Each Tablet, 1 TAB PO TID PRN for PAIN-MODERATE, ( Reported) Lisinopril/Hydrochlorothiazide 1 Each Tablet, 1 TAB PO DAILY, (Reported) Metoprolol Succinate 50 Mg Tab.er.24h, 50 MG PO DAILY, (Reported) Paliperidone 6 Mg Tab.er.24, 6 MG PO DAILY, (Reported) Pregabalin 150 Mg Capsule, 150 MG PO BID, (Reported) Ropinirole HCl 3 Mg Tablet, 3 MG PO HS, (Reported) Tramadol HCl 50 Mg Tablet, 50 MG PO Q8H PRN for PAIN-MODERATE Prescribed by: PAULETTE KAPLAN on 09/04/18 1404 Past Ppwenwq-Smfpfy-Xxebnl Hx Patient Social History Alcohol Use: Denies Use Recreational Drug Use: No (PAST HX OF MULTIPLE DRUGS) Drug of Choice: METH, Marijuana Smoking Status: Current Everyday Smoker Type Used: Cigarettes Recent Foreign Travel: No Contact w/Someone Who Travel: No Recent Infectious Disease Expo: No Recent Hopitalizations: No Past Medical History Surgeries: Yes (RIGHT HAND, amputation right little toe) Respiratory: No Currently Using CPAP: No Currently Using BIPAP: No Cardiac: Yes Hypertension Neurological: Yes Reproductive Disorders: No Genitourinary: No Gastrointestinal: No Musculoskeletal: Yes Endocrine: Yes ('was diabetic") HEENT: No Cancer: No Psychosocial: Yes Bipolar, Schizophrenia, Violent Behavior Blood Disorders: No Family Medical History Diabetes Sepsis Event Evaluation Height, Weight, BMI Height: 5'10.00" Weight: 218lbs. 5.0oz. 99.911621gw; 31.3 BMI Method:Stated Exam Exam Vital Signs Date Time Temp Pulse Resp B/P (MAP) Pulse Ox O2 Delivery O2 Flow Rate FiO2 09/16/18 05:00 50 16 96/61 (73) 100 Mechanical Ventilator 25.00 09/16/18 04:52 52 16 100 25 09/16/18 04:00 83 15 126/80 (95) 100 Mechanical Ventilator 30.00 09/16/18 04:00 100 Mechanical Ventilator 30.00 09/16/18 03:00 51 15 101/67 (78) 100 Mechanical Ventilator 30.00 09/16/18 02:00 52 16 85/55 (65) 100 Mechanical Ventilator 30.00 09/16/18 01:45 55 15 91/57 (68) 100 Mechanical Ventilator 30.00 09/16/18 01:30 56 16 96/63 (74) 100 Mechanical Ventilator 30.00 09/16/18 01:15 60 23 106/75 (85) 100 Mechanical Ventilator 30.00 09/16/18 01:00 Mechanical Ventilator 30 09/16/18 01:00 62 16 100 30 09/16/18 01:00 97.5 65 15 118/82 (94) 100 Mechanical Ventilator 30.00 09/16/18 00:51 63 09/16/18 00:19 97.0 60 15 96/57 (70) 100 Mechanical Ventilator 09/16/18 00:04 65 16 100 30 09/15/18 23:15 30 09/15/18 22:41 69 16 100 50 09/15/18 22:14 97.5 70 21 146/97 (113) 99 Room Air I & O 09/16/18 07:00 Intake Total 1000 ml Output Total 600 ml Balance 400 ml Height & Weight Height: 5'10.00" Weight: 218lbs. 5.0oz. 99.774738ml; 31.3 BMI Method:Stated Capillary Refill: Less Than 3 Seconds Results Lab Laboratory Tests 09/15/18 22:15 09/16/18 03:50 Assessment/Plan Assessment/Plan Acute respiratory failure - secondary to OD -Continue ventilator care -Hold Propofol and see if pt awakes Polysubstance OD UDS is positive for methamphetamine, TCA, marijuana, opioids Hypotension -Give a liter bolus of NS Hyponatremia -Continue NS and monitor Anemia Bipolar/Schizophrenia - JEAN PAUL HENLEY DO September 16, 2018 05:49
[2018-09-16] MEDS ORDERED: NS IV 1000 ML 1,000 ML IV SCH (06:00)
[2018-09-16] MEDS ORDERED: SODIUM BICARB 8.4% 50 MEQ/50 ML VIAL IV SCH (06:00)
[2018-09-16] MEDS: POTASSIUM CL 10MEQ/50ML IVPB 50 ML IV SCH (06:07)
[2018-09-16] MEDS: MAGNESIUM 1 GM/100 ML IVPB 100 ML IV SCH (06:08)
[2018-09-16] MEDS: KCL 20 MEQ TAB (K-DUR) PO SCH (06:08)
--- NOTE | 2018-09-16 07:05 | ED Psychosocial ---
General Chief Complaint: Overdose Stated Complaint: DRUG OVERDOSE-POLYSUBSTANCE;HYPONATREMIA Nursing Triage Note: Pt to ED via EMS. Pt only responsive to painful stimuli upon arrival to ED. EMS reports call was made to EMS by the save line. Save line reported to EMS that pt reportedly took 100 unknown pills. Pt was found behind [facility] with pants half down. EMS reports no pills or bottles were found near pt. Pt unable to answer assessment questions at time of arrival. Source: EMS, old records (ALL PMH IS FROM OLD RECORDS) Exam Limitations: clinical condition (PT IS OBTUNDED ON ARRIVAL) History of Present Illness Date Seen by Provider: September 15, 2018 Time Seen by Provider: 22:17 Initial Comments PT ARRIVES VIA EMS PT WAS PICKED UP OUTSIDE, LAYING BEHIND [facility], WITH HIS PANTS HALF DOWN. PER EMS, PT CALLED [facility], AND APPARENTLY OVERDOSED ON UNKNOWN PILLS AND UNKNOWN NUMBER--PT HAD REPORTED TO [facility] "OVER 100 PILLS" --SAVE [facility] CALLED EMS NO BOTTLES WERE FOUND WITH OR NEAR PATIENT, BUT PT DID HAVE SEVERAL KNIVES ON HIS PERSON PT IS ESSENTIALLY OBTUNDED ON ARRIVAL WITH SNOROUS BREATHING AND GURGLING NO OTHER INFORMATION IS OBTAINABLE PT HERE 09/04/18 WITH A RIB INJURY PCP: FELICIA PER OLD RECORDS Allergies and Home Medications Allergies Coded Allergies: latex (Unverified Allergy, Intermediate, 08/12/10) Haloperidol Lactate (Unverified Allergy, Mild, 08/12/10) chlorpromazine HCl (Unverified Allergy, Mild, 08/12/10) haloperidol (Unverified Allergy, Mild, 08/12/10) Home Medications Amitriptyline HCl 75 Mg Tablet, 75 MG PO HS, (Reported) Amlodipine Besylate 10 Mg Tablet, 10 MG PO DAILY, (Reported) Benztropine Mesylate 1 Mg Tablet, 1 MG PO TID, (Reported) Clindamycin HCl 300 Mg Capsule, 300 MG PO TID Prescribed by: WERNER DRIVER on 09/25/17 1619 Divalproex Sodium 500 Mg Tablet.dr, 500 MG PO QID, (Reported) Duloxetine HCl 60 Mg Capsule.dr, 60 MG PO DAILY, (Reported) Hydrocodone/Ibuprofen 1 Each Tablet, 1 TAB PO TID PRN for PAIN-MODERATE, ( Reported) Lisinopril/Hydrochlorothiazide 1 Each Tablet, 1 TAB PO DAILY, (Reported) Metoprolol Succinate 50 Mg Tab.er.24h, 50 MG PO DAILY, (Reported) Paliperidone 6 Mg Tab.er.24, 6 MG PO DAILY, (Reported) Pregabalin 150 Mg Capsule, 150 MG PO BID, (Reported) Ropinirole HCl 3 Mg Tablet, 3 MG PO HS, (Reported) Tramadol HCl 50 Mg Tablet, 50 MG PO Q8H PRN for PAIN-MODERATE Prescribed by: PAULETTE KAPLAN on 09/04/18 9783 Patient Home Medication List Home Medication List Reviewed: Yes Review of Systems Constitutional: other (UNABLE TO OBTAIN) Past Pfsslwg-Fkyahb-Rqudkz Hx Patient Social History Alcohol Use: Denies Use Recreational Drug Use: Yes (POLYSUBSTANCE ABUSE, + IV DRUG USE) Drug of Choice: METH, Marijuana Smoking Status: Current Everyday Smoker Type Used: Cigarettes Recent Foreign Travel: No Contact w/Someone Who Travel: No Recent Infectious Disease Expo: No Recent Hopitalizations: No Past Medical History Surgeries: Yes (RIGHT HAND, amputation right little toe) Orthopedic Respiratory: No Currently Using CPAP: No Currently Using BIPAP: No Cardiac: Yes Hypertension Neurological: Yes Reproductive Disorders: No Genitourinary: No Gastrointestinal: No Musculoskeletal: Yes Endocrine: Yes ('was diabetic") HEENT: No Cancer: No Psychosocial: Yes (HISTORY OF INTENTIONAL OVERDOSE IN 2003, AND AGAIN 09/15/18) Suicide Attempts, Bipolar, Schizophrenia, Violent Behavior Integumentary: Yes (DIABETIC FOOT ULCER) Blood Disorders: No Family Medical History Diabetes Physical Exam Vital Signs - First Documented 09/15/18 09/15/18 09/16/18 22:14 22:41 01:00 Temp 97.5 Pulse 70 Resp 21 B/P (MAP) 146/97 (113) Pulse Ox 99 O2 Delivery Room Air O2 Flow Rate 30.00 FiO2 50 Capillary Refill : Less Than 3 Seconds Height, Weight, BMI Height: 5'10.00" Weight: 218lbs. 5.0oz. 99.694012au; 31.3 BMI Method:Stated General Appearance: other (FILTHY, MALODOROUS, ESSENTIALLY OBTUNDED WITH SNOROUS BREATHING AND GURGLING. PT DOES WITHDRAW TO PAIN. NO VERBAL RESPONSE. ) HEENT: other (PUPILS DILATED TO 5-6 MM AND NON-REACTIVE, BUT EQUAL; EDENTULOUS) Respiratory: other (DYSPNEIC, ABDOMINAL BREATHING, SNOROUS BREATHING AND GURGLING. ) Cardiovascular: no JVD, no murmur, tachycardia Gastrointestinal: soft Extremities: no pedal edema, normal capillary refill, other (EXTENSIVE TRACK SHETTY AND SCARRING TO BILATERAL AC SPACES--LEFT>>RIGHT) Neurologic/Psychiatric: other ( ABOVE--WITHDRAWS TO PAIN) Skin: warm/dry Procedures/Interventions Reason for Intubation: GCS <8, INABILITY TO MAINTAIN AIRWAY Date of ETT Placement: September 15, 2018 Time of ETT Placement: 2230 Intubation Method: orotracheal Tube Size: 7.50 Medications: Rocuronium, Succinylcholine Breath Sounds after Intubation: bilateral-equal Intubation Complications: no complications Post Intubation Xray: Yes PT INTUBATED BY José DRIVER NP Progress/Results/Core Measures Results/Orders Lab Results Laboratory Tests Test 09/15/18 22:15 09/15/18 22:39 09/15/18 22:54 09/16/18 03:50 Range/Units White Blood Count 10.9 6.8 4.3-11.0 10^3/uL Red Blood Count 3.87 L 3.50 L 4.35-5.85 10^6/uL Hemoglobin 13.3 11.9 L 13.3-17.7 G/DL Hematocrit 36 L 33 L 40-54 % Mean Corpuscular Volume 93 95 80-99 FL Mean Corpuscular Hemoglobin 34 34 25-34 PG Mean Corpuscular Hemoglobin Concent 37 H 36 32-36 G/DL Red Cell Distribution Width 12.2 12.5 10.0-14.5 % Platelet Count 234 175 130-400 10^3/uL Mean Platelet Volume 9.3 9.5 7.4-10.4 FL Neutrophils (%) (Auto) 43 45 42-75 % Lymphocytes (%) (Auto) 29 31 12-44 % Monocytes (%) (Auto) 24 H 21 H 0-12 % Eosinophils (%) (Auto) 4 2 0-10 % Basophils (%) (Auto) 1 0 0-10 % Neutrophils # (Auto) 4.7 3.1 1.8-7.8 X 10^3 Lymphocytes # (Auto) 3.1 2.1 1.0-4.0 X 10^3 Monocytes # (Auto) 2.6 H 1.5 H 0.0-1.0 X 10^3 Eosinophils # (Auto) 0.4 H 0.1 0.0-0.3 10^3/uL Basophils # (Auto) 0.1 0.0 0.0-0.1 10^3/uL Neutrophils % (Manual) 51 % Lymphocytes % (Manual) 40 % Monocytes % (Manual) 7 % Eosinophils % (Manual) 2 % Basophils % (Manual) 0 % Band Neutrophils 0 % Blood Morphology Comment NORMAL Sodium Level 119 *L 121 *L 135-145 MMOL/L Potassium Level 4.4 3.9 3.6-5.0 MMOL/L Chloride Level 91 L 94 L 98-107 MMOL/L Carbon Dioxide Level 17 L 16 L 21-32 MMOL/L Anion Gap 11 11 5-14 MMOL/L Blood Urea Nitrogen 11 12 7-18 MG/DL Creatinine 0.86 0.82 0.60-1.30 MG/DL Estimat Glomerular Filtration Rate > 60 > 60 BUN/Creatinine Ratio 13 15 Glucose Level 88 99 70-105 MG/DL Calcium Level 8.8 8.3 L 8.5-10.1 MG/DL Corrected Calcium 9.0 8.8 8.5-10.1 MG/DL Total Bilirubin 1.1 H 0.7 0.1-1.0 MG/DL Aspartate Amino Transf (AST/SGOT) 28 21 5-34 U/L Alanine Aminotransferase (ALT/SGPT) 28 24 0-55 U/L Alkaline Phosphatase 92 81 40-136 U/L Total Protein 6.5 5.5 L 6.4-8.2 GM/DL Albumin 3.8 3.4 3.2-4.5 GM/DL TSH Castro Testing 1.98 0.35-4.94 UIU/ML Salicylates Level < 5.0 L 5.0-20.0 MG/DL Acetaminophen Level < 10 L 10-30 UG/ML Serum Alcohol < 10 <10 MG/DL Urine Color YELLOW Urine Clarity CLEAR Urine pH 6 5-9 Urine Specific Nogal 1.020 1.016-1.022 Urine Protein 1+ H NEGATIVE Urine Glucose (UA) NEGATIVE NEGATIVE Urine Ketones 1+ H NEGATIVE Urine Nitrite NEGATIVE NEGATIVE Urine Bilirubin 1+ H NEGATIVE Urine Urobilinogen 4 H NORMAL MG/DL Urine Leukocyte Esterase 1+ H NEGATIVE Urine RBC (Auto) NEGATIVE NEGATIVE Urine RBC 0-2 /HPF Urine WBC 0-2 /HPF Urine Crystals NONE /LPF Urine Bacteria NEGATIVE /HPF Urine Casts PRESENT /LPF Urine Hyaline Casts 5-10 H /LPF Urine Mucus LARGE H /LPF Urine Culture Indicated NO Urine Opiates Screen POSITIVE H NEGATIVE Urine Oxycodone Screen NEGATIVE NEGATIVE Urine Methadone Screen NEGATIVE NEGATIVE Urine Propoxyphene Screen NEGATIVE NEGATIVE Urine Barbiturates Screen NEGATIVE NEGATIVE Ur Tricyclic Antidepressants Screen POSITIVE H NEGATIVE Urine Phencyclidine Screen NEGATIVE NEGATIVE Urine Amphetamines Screen POSITIVE H NEGATIVE Urine Methamphetamines Screen POSITIVE H NEGATIVE Urine Benzodiazepines Screen NEGATIVE NEGATIVE Urine Cocaine Screen NEGATIVE NEGATIVE Urine Cannabinoids Screen POSITIVE H NEGATIVE Blood Gas Puncture Site R RAD Blood Gas Patient Temperature 97.5 Arterial Blood pH 7.41 7.37-7.43 Arterial Blood Partial Pressure CO2 35 35-45 MMHG Arterial Blood Partial Pressure O2 192 H 79-93 MMHG Arterial Blood HCO3 22 L 23-27 MMOL/L Arterial Blood Total CO2 23.0 21.0-31.0 MMOL/L Arterial Blood Oxygen Saturation 100 94-100 % Arterial Blood Base Excess -2.2 -2.5-2.5 MMOL/L Gurmeet Test YES-POS Blood Gas Ventilator Setting NO Blood Gas Inspired Oxygen 50% Phosphorus Level 3.0 2.3-4.7 MG/DL Magnesium Level 1.8 1.8-2.4 MG/DL B-Type Natriuretic Peptide 31.5 <100.0 PG/ML Test 09/16/18 04:42 09/16/18 06:20 Range/Units Blood Gas Puncture Site L RAD Blood Gas Patient Temperature 96.0 Arterial Blood pH 7.43 7.37-7.43 Arterial Blood Partial Pressure CO2 31 L 35-45 MMHG Arterial Blood Partial Pressure O2 131 H 79-93 MMHG Arterial Blood HCO3 21 L 23-27 MMOL/L Arterial Blood Total CO2 21.6 21.0-31.0 MMOL/L Arterial Blood Oxygen Saturation 99 94-100 % Arterial Blood Base Excess -3.3 L -2.5-2.5 MMOL/L Gurmeet Test YES-POS Blood Gas Ventilator Setting YES Blood Gas Inspired Oxygen 30% Lactic Acid Level 1.87 0.50-2.00 MMOL/L My Orders Orders - JOSHUA HSU DO O2 (09/15/18 22:17) Urinalysis (09/15/18 22:17) Thyroid Analyzer (09/15/18 22:17) Drug Screen Stat (Urine) (09/15/18 22:17) Cbc With Automated Diff (09/15/18 22:17) Comprehensive Metabolic Panel (09/15/18 22:17) Alcohol (09/15/18 22:17) Acetaminophen (09/15/18 22:17) Salicylate (09/15/18 22:17) Ekg Tracing (09/15/18 22:17) Monitor-Rhythm Ecg Trace Only (09/15/18 22:17) Ed Iv/Invasive Line Start (09/15/18 22:17) Lactated Ringers (Lr 1000 Ml Iv Solution (09/15/18 22:17) Catheter(Urinary) Insert & Ass 03,15 (09/15/18 22:17) Manual Differential (09/15/18 22:15) Ng Tube Insert & Assessment (09/15/18 22:34) Chest 1 View, Ap/Pa Only (09/15/18 22:34) Arterial Blood Gas (09/15/18 22:52) Propofol Drip (Icu) (Diprivan Drip (Icu) (09/15/18 22:50) Ed Iv/Invasive Line Start (09/15/18 22:58) Ns Iv 1000 Ml (Sodium Chloride 0.9%) (09/15/18 22:58) Propofol Injection (Diprivan Injection) (09/15/18 23:00) Ed Iv/Invasive Line Start (09/15/18 23:22) Lactated Ringers (Lr 1000 Ml Iv Solution (09/15/18 23:22) Rocuronium 5 Ml Syringe (Rocuronium 5 Ml (09/15/18 07:08) Succinylcholine Injection (Succinylcholi (09/15/18 07:08) Medications Given in ED Current Medications Medications Dose Ordered Sig/Alfredo Route Start Time Stop Time Status Last Admin Dose Admin Sodium Chloride 1,000 ml @ 0 mls/hr Q0M ONCE IV 09/15/18 22:58 09/15/18 23:49 DC 09/16/18 00:17 0 MLS/HR Vital Signs/I&O 09/15/18 09/15/18 09/15/18 09/16/18 22:14 22:41 23:15 00:04 Temp 97.5 Pulse 70 69 65 Resp 21 16 16 B/P (MAP) 146/97 (113) Pulse Ox 99 100 100 O2 Delivery Room Air FiO2 50 30 30 09/16/18 09/16/18 09/16/18 09/16/18 00:19 00:51 01:00 01:00 Temp 97.0 97.5 Pulse 60 63 65 62 Resp 15 15 16 B/P (MAP) 96/57 (70) 118/82 (94) Pulse Ox 100 100 100 O2 Delivery Mechanical Ventilator Mechanical Ventilator O2 Flow Rate 30.00 FiO2 30 09/16/18 09/16/18 09/16/18 09/16/18 01:00 01:15 01:30 01:45 Pulse 60 56 55 Resp 23 16 15 B/P (MAP) 106/75 (85) 96/63 (74) 91/57 (68) Pulse Ox 100 100 100 O2 Delivery Mechanical Ventilator Mechanical Ventilator Mechanical Ventilator Mechanical Ventilator O2 Flow Rate 30.00 30.00 30.00 FiO2 30 09/16/18 09/16/18 09/16/18 09/16/18 02:00 03:00 04:00 04:00 Pulse 52 51 83 Resp 16 15 15 B/P (MAP) 85/55 (65) 101/67 (78) 126/80 (95) Pulse Ox 100 100 100 100 O2 Delivery Mechanical Ventilator Mechanical Ventilator Mechanical Ventilator Mechanical Ventilator O2 Flow Rate 30.00 30.00 30.00 30.00 09/16/18 09/16/18 09/16/18 09/16/18 04:52 05:00 06:00 07:11 Pulse 52 50 48 52 Resp 16 16 22 16 B/P (MAP) 96/61 (73) 92/55 (67) Pulse Ox 100 100 100 100 O2 Delivery Mechanical Ventilator Mechanical Ventilator O2 Flow Rate 25.00 25.00 FiO2 25 25 Blood Pressure Mean: 67 Progress Progress Note : Progress Note PT INTUBATED ESSENTIALLY ON ARRIVAL. NO DETERIORATION IN PT'S CONDITION DURING ER STAY NO ONE CALLED ABOUT PT OR CAME TO ER TO SEE PT Initial ECG Impression Date: September 15, 2018 Initial ECG Impression Time: 22:45 Initial ECG Rate: 74 Initial ECG Rhythm: Normal Sinus Diagnostic Imaging Comments CXR--ET TUBE AND NG TUBE IN PLACE, BIBASILAR ATELECTASIS, NO ACUTE PROCESS, PENDING RADIOLOGIST REVIEW Reviewed: Reviewed by Me Critical Care Note Critical Care Start Time: 22:17 Total Time (minutes) 45 Departure Communication (Admissions) 2300--SPOKE WITH DR. EDWARDS, ACCEPTS PT FOR ADMIT. WILL CONSULT E-ICU AND DR. HENLEY Impression Primary Impression: Intentional drug overdose Additional Impressions: MUJLTIPLE DRUG OVER DOSE Suicide attempt Hyponatremia Inability to maintain patency of airway ALTERED MENTAL STATUS DUE TO DRUG OVERDOSE Disposition: ADMITTED INPATIENT Condition: Stable Admissions Decision to Admit Reason: Admit from ER (General) Decision to Admit/Date: September 15, 2018 Time/Decision to Admit Time: 23:00 Departure-Patient Inst. Referrals: [facility] (PCP) Primary Care Physician Patient Instructions: ALCOHOL AND SUBSTANCE ABUSE JOSHUA HSU DO September 16, 2018 07:05
--- NOTE | 2018-09-16 07:37 | Diagnostic Imaging Report ---
Indication: Dyspnea. Respiratory failure. Comparison: 09/15/2018 Findings: Single frontal radiographic view of the chest was obtained and demonstrates indwelling endotracheal tube with tip just above the clavicles. Gastric tube is again seen with tip and side port in the stomach. Cardiac silhouette remains borderline prominent. Pulmonary vasculature is within normal limits. There does appear to be some improved aeration of the left perihilar region. Persistent patchy alveolar opacities remain within the left base. Right lung is relatively clear. There is no large effusion or pneumothorax on either side. Bony structures show no gross acute abnormality. Impression: 1. Improved aeration on the left, but with persistent patchy left basilar atelectasis and/or infiltrate. 2. Lines and tubes as above. Dictated by: Dictated on workstation # [id number]
[2018-09-16 07:58] LABS: INR 1.3 (0.8-1.4); PROTHROMBIN TIME PATIENT 16.8 SEC (12.2-14.7)
[2018-09-16] MEDS ORDERED: IOHEXOL 350 MG/ML 100 ML (OMNIPAQUE 350) VIAL IV ONE (09:15)
[2018-09-16] MEDS ORDERED: CATHETER FLUSH 10 ML SYR IV PRN (09:15)
[2018-09-16] MEDS ORDERED: HOLD METFORMIN - RECEIVED CONTRAST 20 ML VIAL IV SCH (09:15)
[2018-09-16] MEDS ORDERED: PROPOFOL DRIP (ICU) 0 ML IV ONE (09:59)
--- NOTE | 2018-09-16 10:18 | History & Physical-Hospitalist ---
History of Present Illness HPI/Chief Complaint Altered mental status with intubation. HPI: This is a 43yoWM who presented to the ER with altered mental status and respiratory failure. Pt remains intubated and reviewed lab work revealing meth use and multiple polypharmacy drug abuse. Dr. Ramirez is appreciated in his expertise on ventilator management. Source: RN/MD Exam Limitations: clinical condition (intubated) Date Seen 09/16/18 Time Seen by a Provider: 09:15 Attending Physician Erika Bourgeois DO [facility], [facility] Referring Physician Date of Admission September 15, 2018 at 23:00 Home Medications & Allergies Home Medications Reviewed patient Home Medication Reconciliation performed by pharmacy medication reconciliations light technician and/or nursing. Patients Allergies have been reviewed. Allergies Allergies Coded Allergies latex (Unverified Allergy, Intermediate, 08/12/10) Haloperidol Lactate (Unverified Allergy, Mild, 08/12/10) chlorpromazine HCl (Unverified Allergy, Mild, 08/12/10) haloperidol (Unverified Allergy, Mild, 08/12/10) Past Xinzqfi-Qptgyi-Mgjmxv Hx Past Med/Social Hx: Reviewed Nursing Past Med/Soc Hx, Reviewed and Corrections made Patient Social History Alcohol Use: Denies Use Recreational Drug Use: Yes (POLYSUBSTANCE ABUSE, + IV DRUG USE) Drug of Choice: METH, Marijuana Smoking Status: Current Everyday Smoker Type Used: Cigarettes Recent Foreign Travel: No Contact w/other who traveled: No Recent Hopitalizations: No Recent Infectious Disease Expo: No Past Medical History Surgeries: Orthopedic Currently Using CPAP: No Currently Using BIPAP: No Cardiac: Hypertension Reproductive: No Psychosocial: Suicide Attempts, Bipolar, Schizophrenia, Violent Behavior History of Blood Disorders: No Family History Diabetes Review of Systems Constitutional: other (unobtainable) Physical Exam Physical Exam Vital Signs Vital Signs - First Documented 09/15/18 09/15/18 09/16/18 22:14 22:41 01:00 Temp 97.5 Pulse 70 Resp 21 B/P (MAP) 146/97 (113) Pulse Ox 99 O2 Delivery Room Air O2 Flow Rate 30.00 FiO2 50 Capillary Refill : Less Than 3 Seconds Height, Weight, BMI Height: 5'10.00" Weight: 217lbs. 5.0oz. 98.822434cl; 31.3 BMI Method:Stated General Appearance: No Apparent Distress, WD/WN, Other (intubated) Respiratory: Lungs Clear, Normal Breath Sounds Cardiovascular: Regular Rate, Rhythm Results Results/Procedures Labs Laboratory Tests 09/15/18 22:15 09/16/18 03:50 Patient resulted labs reviewed. Assessment/Plan Admission Diagnosis Assessment: Unresponsive Respiratory failure VDRF Drug abuse Plan: Intubation Appreciate Dr Ramirez Admission Status: Inpatient Order (span 2 midnights) Reason for Inpatient Admission: Resp failure will require 4 days inpatient Diagnosis/Problems Diagnosis/Problems (1) Ventilator dependence Status: Acute (2) Drug overdose, multiple drugs Status: Acute (3) Hyponatremia Status: Acute Clinical Quality Measures DVT/VTE Risk/Contraindication: Risk Factor Score Per Nursin RFS Level Per Nursing on Admit: 4+=Very High ERIKA BOURGEOIS DO September 16, 2018 10:18
--- NOTE | 2018-09-16 10:30 | NUR ---
Accompanied pt to CT et back to room
--- NOTE | 2018-09-16 10:33 | Diagnostic Imaging Report ---
PROCEDURE: CT head with and without contrast. TECHNIQUE: Multiple contiguous axial images were obtained through the brain before and after the administration of intravenous contrast. Auto Exposure Controls were utilized during the CT exam to meet ALARA standards for radiation dose reduction. INDICATION: Nonresponsive and intubated. No prior studies are available for comparison. FINDINGS: The ventricles and sulci are within normal limits. No sulcal effacement or midline shift is seen. No acute intra-axial or extra-axial hemorrhage is detected. Cisterns are patent. Visualized paranasal sinuses are clear. No abnormal enhancement following contrast administration is seen. IMPRESSION: Unremarkable pre-and postcontrast CT of the brain. No acute feature is detected. Dictated by: Dictated on workstation # [id number]
[2018-09-16] MEDS ORDERED: ALBU18HF2 INH (11:38)
[2018-09-16] MEDS ORDERED: LISI-552 PO (11:38)
[2018-09-16] MEDS ORDERED: RANI150T11 PO (11:38)
[2018-09-16] MEDS ORDERED: NAPR-915 PO (11:38)
[2018-09-16] MEDS ORDERED: POLY17PO6 PO (11:46)
[2018-09-16] MEDS ORDERED: GUAI200T4 PO (11:46)
--- NOTE | 2018-09-16 11:47 | NUR ---
UNABLE TO SPEAK WITH THE PATIENT ABOUT MEDICATIONS AT THIS TIME. I UPDATED THE MED REC WITH WHAT HAS BEEN FILLED RECENTLY ACCORDING TO THE EXT MED HX. I ALSO REQUESTED A MED LIST TO BE FAXED OVER FROM [facility] MED[facility] REC[facility]DS. IN ADDITION TO WHAT IS SHOWN ON THE EXT MED HX I ADDED MIRALAX AND GUAIFENESIN TO THE MED REC THEY WERE LISTED ON THE MED LIST FROM MEDICAL RECORDS. MEDICAL RECORDS DID NOT HAVE HYDROCODONE/IBU HOWEVER IT WAS RECENTLY FILLED SO I LEFT IT ON THE MED REC PRN.
--- NOTE | 2018-09-16 12:04 | NUR ---
Updated Dr. Ramirez - pt will squeeze this RN's hand on command but morris snot follow any other command at this time. Also, updated regarding SBP 180-190s. New orders received
[2018-09-16] MEDS ORDERED: hydrALAZINE (APESOLINE) 20 MG/ML VIAL ONE (12:07)
[2018-09-16] MEDS: hydrALAZINE (APESOLINE) 20 MG/ML VIAL IV PRN ×2 (12:12→17:26)
[2018-09-16] MEDS: niCARdipine IV 50 MG in NS (IVPB) 230 ML IV SCH ×2 (12:43→22:45)
[2018-09-17] VITALS (12 sets, daily range): BP systolic 106–184; BP diastolic 56–86
[2018-09-17] MEDS: NS IV 1000 ML 1,000 ML IV SCH (02:57)
[2018-09-17 04:16] LABS: BASOPHILS % (AUTO) 0 % (0-10); EOSINOPHILS # (AUTO) 0.1 10^3/uL (0.0-0.3); EOSINOPHILS % (AUTO) 2 % (0-10); HEMATOCRIT 34 % (40-54); HEMOGLOBIN 12.2 G/DL (13.3-17.7); LYMPHOCYTES # (AUTO) 1.5 X 10^3 (1.0-4.0); LYMPHOCYTES % (AUTO) 25 % (12-44); MEAN CORPUSCULAR HEMOGLOBIN 34 PG (25-34); MEAN CORPUSCULAR HGB CONC 36 G/DL (32-36); MEAN CORPUSCULAR VOLUME 96 FL (80-99); MEAN PLATELET VOLUME 9.6 FL (7.4-10.4); MONOCYTES % (AUTO) 17 % (0-12); NEUTROPHILS # (AUTO) 3.3 X 10^3 (1.8-7.8); NEUTROPHILS % (AUTO) 56 % (42-75); PLATELET COUNT 156 10^3/uL (130-400); RED CELL DISTRIBUTION WIDTH 12.6 % (10.0-14.5); WHITE BLOOD COUNT 5.9 10^3/uL (4.3-11.0)
--- NOTE | 2018-09-17 04:30 | NUR ---
Pt requesting why parents were not at bedside, this RN reoriented pt, stated there is no contact information since pt has been lethargic, pt alert to person only, is confused to place and time. Gave this RN number of mother Brian Ramirez [phone], asked this RN to call, number attempted, it has been disconnected.
[2018-09-17 04:36] LABS: BUN/CREATININE RATIO 13; CALCIUM 8.4 MG/DL (8.5-10.1); CARBON DIOXIDE 18 MMOL/L (21-32); CHLORIDE 103 MMOL/L (98-107); CREATININE SERUM 0.64 MG/DL (0.60-1.30); GFR ESTIMATED > 60; GLUCOSE 66 MG/DL (70-105); MAGNESIUM 1.8 MG/DL (1.8-2.4); PHOSPHORUS 2.6 MG/DL (2.3-4.7); POTASSIUM 3.6 MMOL/L (3.6-5.0); SODIUM 131 MMOL/L (135-145)
--- NOTE | 2018-09-17 05:34 | Pulmonary Progress Note ---
Subjective Time Seen by a Provider: 05:58 Subjective/Events-last exam No complications noted. Sepsis Event Evaluation Height, Weight, BMI Height: 5'10.00" Weight: 217lbs. 5.0oz. 98.028725st; 31.3 BMI Method:Stated Focused Exam Lactate Level 09/16/18 06:20: Lactic Acid Level 1.87 Exam Exam Vital Signs Date Time Temp Pulse Resp B/P (MAP) Pulse Ox O2 Delivery O2 Flow Rate FiO2 09/17/18 05:00 80 25 106/56 (73) 97 Room Air 09/17/18 04:00 73 14 131/74 (93) 99 Room Air 09/17/18 03:00 71 12 147/81 (103) 99 Room Air 09/17/18 02:00 69 13 137/82 (100) 100 Room Air 09/17/18 01:00 71 16 139/77 (97) 99 Room Air 09/17/18 00:50 71 09/17/18 00:00 96.8 09/17/18 00:00 92 18 129/76 (93) 99 Room Air 09/17/18 00:00 Room Air 09/16/18 23:00 69 12 126/74 (91) 99 Room Air 09/16/18 22:00 79 10 133/73 (93) 98 Room Air 09/16/18 21:00 81 13 162/92 (115) 99 Room Air 09/16/18 20:00 Room Air 09/16/18 20:00 96.9 79 13 165/85 (111) 99 Room Air 09/16/18 19:00 75 09/16/18 19:00 73 10 142/76 (98) 99 Room Air 09/16/18 18:00 76 7 139/77 (97) 99 Room Air 09/16/18 17:00 69 15 176/92 (120) 100 Room Air 09/16/18 16:02 97.7 09/16/18 16:00 100 Room Air 09/16/18 14:21 67 16 100 21 09/16/18 14:00 26 176/105 (128) 98 Room Air 09/16/18 13:00 28 155/89 (111) 100 Mechanical Ventilator 20.00 09/16/18 12:40 66 09/16/18 12:04 96.6 09/16/18 12:00 96.3 09/16/18 12:00 99 Mechanical Ventilator 21.00 09/16/18 12:00 64 15 191/110 (137) 98 Mechanical Ventilator 20.00 09/16/18 11:33 62 16 100 21 09/16/18 11:00 29 136/90 (105) 99 Mechanical Ventilator 20.00 09/16/18 10:00 20 100 Mechanical Ventilator 20.00 09/16/18 09:00 64 31 136/82 (100) 94 Mechanical Ventilator 20.00 09/16/18 08:46 61 16 100 21 09/16/18 08:22 96.8 09/16/18 08:00 100 Mechanical Ventilator 21.00 09/16/18 08:00 57 20 141/86 (104) 99 Mechanical Ventilator 20.00 09/16/18 07:11 52 16 100 25 09/16/18 07:00 51 16 120/76 (91) 100 Mechanical Ventilator 25.00 09/16/18 07:00 52 09/16/18 06:00 48 22 92/55 (67) 100 Mechanical Ventilator 25.00 I & O 09/17/18 07:00 Intake Total 4050 ml Output Total 3875 ml Balance 175 ml Height & Weight Height: 5'10.00" Weight: 217lbs. 5.0oz. 98.267256es; 31.3 BMI Method:Stated General Appearance: No Apparent Distress, WD/WN Respiratory: Lungs Clear, Normal Breath Sounds Cardiovascular: Regular Rate, Rhythm Capillary Refill: Less Than 3 Seconds Gastrointestinal: soft Extremity: Normal Capillary Refill Neurologic/Psychiatric: Alert, Oriented x3 Skin: Normal Color, Warm/Dry Results Lab Laboratory Tests 09/15/18 22:15 09/16/18 03:50 09/17/18 03:40 Assessment/Plan Assessment/Plan Acute respiratory failure - secondary to OD - -Pt is doing well off vent Polysubstance OD - with suicidal attempt -Consult behavioral health -Pt admits to suicidal attempt/thoughts -Pt states currently he does not feel suicidal UDS is positive for methamphetamine, TCA, marijuana, opioids Bipolar/Schizophrenia/depression Hypotension - resolved -Give a liter bolus of NS Hyponatremia -Continue NS and monitor Anemia JEAN PAUL HENLEY DO September 17, 2018 05:34
[2018-09-17] MEDS: POTASSIUM CL 10MEQ/50ML IVPB 50 ML IV SCH ×3 (05:45→07:48)
[2018-09-17] MEDS: MAGNESIUM 1 GM/100 ML IVPB 100 ML IV SCH (05:45)
[2018-09-17] MEDS: KCL 20 MEQ TAB (K-DUR) PO SCH (05:45)
--- NOTE | 2018-09-17 07:56 | Diagnostic Imaging Report ---
EXAM: CHEST 1 VIEW, AP/PA ONLY INDICATION: Dyspnea, drug overdose. COMPARISON: Chest radiograph 09/16/2018. FINDINGS: Interval extubation and removal of the ETT. Normal heart size and central pulmonary vascularity. Small left pleural effusion. Mild atelectasis or infiltrate persisting in the left lung base. No pneumothorax. No acute osseous findings. IMPRESSION: 1. Interval removal of the ETT and NGT. 2. Small left pleural effusion with atelectasis or infiltrate. Dictated by: Dictated on workstation # [id number]
--- NOTE | 2018-09-17 10:00 | NUR ---
Pt transferred to room 421 at this time via wheelchair. Personal belongings with pt at time of transfer. Report given to ORALIA Stephens who will assume pt care at this time. VSS prior to pt transfer.
--- NOTE | 2018-09-17 10:07 | NUR ---
patient transfered from ICU to room 421, bedside report received from Paola BARTON
--- NOTE | 2018-09-17 10:40 | Progress Note-Hospitalist ---
Subjective HPI/CC On Admission Date Seen by Provider: September 17, 2018 Time Seen by Provider: 10:00 Altered mental status with intubation. HPI: This is a 43yoWM who presented to the ER with altered mental status and respiratory failure. Pt remains intubated and reviewed lab work revealing meth use and multiple polypharmacy drug abuse. Dr. Ramirez is appreciated in his expertise on ventilator management. Subjective/Events-last exam Patient was extubated yesterday Remains suicidal No pain is reported. Focused Exam Lactate Level 09/16/18 06:20: Lactic Acid Level 1.87 Objective Exam Vital Signs Vital Signs Date Time Temp Pulse Resp B/P (MAP) Pulse Ox O2 Delivery O2 Flow Rate FiO2 09/17/18 09:00 77 16 150/86 (107) 98 Room Air 09/17/18 08:00 96.9 09/16/18 14:21 21 09/16/18 14:00 Capillary Refill : Less Than 3 Seconds General Appearance: No Apparent Distress, WD/WN, Chronically ill Respiratory: Lungs Clear, Normal Breath Sounds Cardiovascular: Regular Rate, Rhythm Extremity: Normal Capillary Refill Neurologic/Psychiatric: Alert, Oriented x3, Depressed Affect Skin: Normal Color, Warm/Dry Results/Procedures Lab Laboratory Tests 09/17/18 03:40 Patient resulted labs reviewed. Assessment/Plan Assessment and Plan Assess & Plan/Chief Complaint Assessment: AMS s/p intubation Suicidal thoughts Plan: Transfer to [facility] Monitor closely Suicide precautions Diagnosis/Problems Diagnosis/Problems (1) Ventilator dependence Status: Resolved Resolution Date/Time: 09/17/18 @ 16:35 (2) Drug overdose, multiple drugs Status: Acute (3) Hyponatremia Status: Acute Clinical Quality Measures DVT/VTE Risk/Contraindication: Risk Factor Score Per Nursin RFS Level Per Nursing on Admit: 4+=Very High ISAK EDWARDS DO September 17, 2018 10:40
--- NOTE | 2018-09-17 11:07 | Progress Note-Hospitalist ---
Subjective HPI/CC On Admission Date Seen by Provider: September 17, 2018 Time Seen by Provider: 10:30 Altered mental status with intubation. HPI: This is a 43yoWM who presented to the ER with altered mental status and respiratory failure. Pt remains intubated and reviewed lab work revealing meth use and multiple polypharmacy drug abuse. Dr. Ramirez is appreciated in his expertise on ventilator management. Focused Exam Lactate Level 09/16/18 06:20: Lactic Acid Level 1.87 Objective Exam Vital Signs Vital Signs Date Time Temp Pulse Resp B/P (MAP) Pulse Ox O2 Delivery O2 Flow Rate FiO2 09/17/18 09:00 77 16 150/86 (107) 98 Room Air 09/17/18 08:00 96.9 09/16/18 14:21 21 09/16/18 14:00 Capillary Refill : Less Than 3 Seconds General Appearance: No Apparent Distress, WD/WN Respiratory: Lungs Clear, Normal Breath Sounds Cardiovascular: Regular Rate, Rhythm Extremity: Normal Capillary Refill Neurologic/Psychiatric: Alert, Oriented x3 Skin: Normal Color, Warm/Dry Results/Procedures Lab Laboratory Tests 09/17/18 03:40 Patient resulted labs reviewed. Diagnosis/Problems Diagnosis/Problems (1) Ventilator dependence Status: Acute (2) Drug overdose, multiple drugs Status: Acute (3) Hyponatremia Status: Acute Clinical Quality Measures DVT/VTE Risk/Contraindication: Risk Factor Score Per Nursin RFS Level Per Nursing on Admit: 4+=Very High ISAK EDWARDS DO September 17, 2018 11:07
--- NOTE | 2018-09-17 13:07 | NUR ---
CM/SS spoke with patient in results from SS consult. He states that he made a bad choice, that he does not want to . He was depressed over situation with his mom, her boyfriend and his girlfriend. He has an apartment he lives in with roommates. He reports he has a psychiatrist (Dameon Joy? at [facility]), A/D counseling (Alexa @ [facility]) and case managers with [facility]. He is not currently in counseling but has previously had counseling. He stated that he is not interested in inpatient psych as he does not do well behind locked doors and does not want to go to [place]. He feels he can get help in the community and with services he has. Will continue to follow.
[2018-09-17] MEDS ORDERED: NICOTINE 21 MG (NICODERM) PATCH TD NR (16:00)
[2018-09-17] MEDS: ACETAMINOPHEN 325 MG TABLET PO PRN (20:30)
[2018-09-17] MEDS: hydrALAZINE (APESOLINE) 20 MG/ML VIAL IV PRN (20:30)
[2018-09-17] MEDS: NICOTINE 21 MG (NICODERM) PATCH TD SCH (21:25)
[2018-09-18] VITALS: BP 168/89
[2018-09-18 04:00] VITALS: BP 186/99
[2018-09-18] MEDS: hydrALAZINE (APESOLINE) 20 MG/ML VIAL IV PRN ×2 (04:23→09:01)
[2018-09-18 06:24] VITALS: BP 137/76
[2018-09-18 08:00] VITALS: BP 165/91
[2018-09-18] MEDS ORDERED: NICOTINE PATCH REMOVAL TP SCH (08:59)
[2018-09-18] MEDS ORDERED: NICOTINE 21 MG (NICODERM) PATCH TD SCH (09:00)
[2018-09-18] MEDS: NICOTINE 21 MG (NICODERM) PATCH TD SCH (09:00)
[2018-09-18] MEDS: ACETAMINOPHEN 325 MG TABLET PO PRN (09:01)
--- NOTE | 2018-09-18 13:33 | Discharge Summary-Hospitalist ---
Diagnosis/Chief Complaint Date of Admission September 15, 2018 at 23:00 Date of Discharge September 18, 2018 at 09:56 Admission Diagnosis Assessment: Unresponsive Respiratory failure VDRF Drug abuse Plan: Intubation Appreciate Dr Ramirez Discharge Diagnosis (1) Ventilator dependence Status: Resolved (2) Drug overdose, multiple drugs Status: Acute (3) Hyponatremia Status: Acute Discharge Summary Discharge Physical Exam Allergies: Coded Allergies: latex (Unverified Allergy, Intermediate, 08/12/10) Haloperidol Lactate (Unverified Allergy, Mild, 08/12/10) chlorpromazine HCl (Unverified Allergy, Mild, 08/12/10) haloperidol (Unverified Allergy, Mild, 08/12/10) Vitals & I&Os Vital Signs Date Time Temp Pulse Resp B/P (MAP) Pulse Ox O2 Delivery O2 Flow Rate FiO2 09/18/18 08:00 Room Air 09/18/18 08:00 95.9 98 18 165/91 (115) 96 09/16/18 14:21 21 09/16/18 14:00 General Appearance: Other (left AMA) Hospital Course Was the Problem List Reviewed?: Yes Patient had a short hospital course after found down and required intubation for 24 hours due to OD. Patient extubated and moved to floor. Patient denied SI and left AMA. Labs (last 24 hrs) Microbiology 09/16/18 MRSA Screen - Final, Complete MRSA not isolated Patient resulted labs reviewed. Discussion & Recommendations Discharge Planning: <30 minutes discharge planning Discharge Home Medications: Active Scripts Active Reported Guaifenesin 200 Mg Tablet 200 Mg PO TID PRN Miralax (Polyethylene Glycol 3350) 17 Gm Powd.pack 17 Gm PO BID PRN Ranitidine HCl 150 Mg Tablet 150 Mg PO BID Ventolin Hfa (Albuterol Sulfate) 18 Gm Hfa.aer.ad 2 Puff INH Q4H PRN Naproxen 500 Mg Tablet 500 Mg PO BID PRN Lisinopril 20 Mg Tablet 20 Mg PO DAILY Invega (Paliperidone) 6 Mg Tab.er.24 6 Mg PO HS Amitriptyline HCl 75 Mg Tablet 75 Mg PO HS Ropinirole HCl 3 Mg Tablet 3 Mg PO 1800 Metoprolol Succinate 50 Mg Tab.er.24h 50 Mg PO HS Benztropine Mesylate 1 Mg Tablet 1 Mg PO TID Divalproex Sodium 500 Mg Tablet.dr 500 Mg PO QID Duloxetine HCl 60 Mg Capsule.dr 60 Mg PO DAILY Lyrica (Pregabalin) 150 Mg Capsule 150 Mg PO BID Hydrocodone-Ibuprofen 7.5-200 (Hydrocodone/Ibuprofen) 1 Each Tablet 1 Tab PO TID PRN Instructions to patient/family Please see electronic discharge instructions given to patient. Clinical Quality Measures DVT/VTE Risk/Contraindication: Risk Factor Score Per Nursin RFS Level Per Nursing on Admit: 4+=Very High ISAK EDWARDS DO September 18, 2018 13:33
== END 2018-09-18 09:56 | disposition left against medical advice (07) | DRG 917 ==
LOC: EDUNIT# 22:14 → ER 22:15 → ICU 23:00 → 4TH 09-17 10:01
PROVIDERS: ADMIT Internal Medicine; ATTEND Internal Medicine
PROC: 5A1935Z Respiratory Ventilation, Less than 24 Consecutive Hours (ICD-10-PCS; principal; 2018-09-15)
PROC: 0BH17EZ Insertion of Endotracheal Airway into Trachea, Via Natural or Artificial Opening (ICD-10-PCS; 2018-09-15)
DX: T43.622A Poisoning by amphetamines, intentional self-harm, initial encounter (principal); T43.012A Poisoning by tricyclic antidepressants, intentional self-harm, initial encounter; T40.2X2A Poisoning by other opioids, intentional self-harm, initial encounter; T40.7X2A Poisoning by cannabis (derivatives), intentional self-harm, initial encounter; J96.00 Acute respiratory failure, unspecified whether with hypoxia or hypercapnia; E87.1 Hypo-osmolality and hyponatremia; I95.9 Hypotension, unspecified; I10 Essential (primary) hypertension; D64.9 Anemia, unspecified; F31.9 Bipolar disorder, unspecified; F20.9 Schizophrenia, unspecified; F17.210 Nicotine dependence, cigarettes, uncomplicated; Z89.421 Acquired absence of other right toe(s)
CPT/HCPCS: 31500; 36415; 36600; 51702; 70470; 71045; 80048; 80053; 80164; 80306; 80320; 80329; 81000; 82805; 83605; 83735; 83880; 84100; 84443; 85007; 85025; 85027; 85610; 85730; 87081; 93005; 93041; 94002; 94799; 96360; 99291

== ENCOUNTER 2019-01-26 12:49 | Inpatient (IN) | payer MEDICARE, MEDICAID ==
[~2019-01-26] VITALS: Ht 177.8 cm; Wt 117.2 kg
[~2019-01-26 12:49] MED LIST changes: +ALBU18HF2 INH; -DULO60CA58 PO; +DULO60CA59 PO; +GUAI200T4 PO; +LISI-552 PO; +NAPR-915 PO; +POLY17PO6 PO; -ROCURONIUM 10 MG/ML 5 ML SYRINGE IV ONE; -SUCCINYLCHOLINE INJ 100 MG/5 ML SYR INJ ONE
--- NOTE | 2019-01-26 13:53 | ED Lower Extremity ---
General Chief Complaint: Lower Extremity Stated Complaint: R BIG TOE PAIN Nursing Triage Note: WOUND ON RIGHT GREAT TOE FOR MONTHS. Nursing Sepsis Screen: No Definite Risk Source: patient Exam Limitations: no limitations (QUAN HOLLAND MED STUDENT) History of Present Illness Date Seen by Provider: Jan 26, 2019 Time Seen by Provider: 13:35 Initial Comments The patient is a wd/wn 43 y/o male who is here with a chief complaint of swollen and painful toe. He reports that he has been having problems with his 1st digit on his right foot for four months. He has been seeing Dr. Nazario at [facility] and has not had any previous antibiotic treatment. Earlier today he was seen by the nurse at [facility] and she instructed him to come to the ER. He reports that the toe is swollen and painful with decreased movement. He describes the pain as a 9/10 throbbing pain that radiates to his mid-calf. The patient took tramadol th is morning for the pain. (QAUN HOLLAND MED STUDENT) Onset: other (worsening over the last 2 months) Severity: moderate Pain/Injury Location: right foot, right 1st toe, right 2nd toe, right 3rd toe Method of Injury: unknown Modifying Factors: Improves With Immobilization; Worse With Movement (VILMA CAO MD) Allergies and Home Medications Allergies Coded Allergies: latex (Unverified Allergy, Intermediate, 08/12/10) Haloperidol Lactate (Unverified Allergy, Mild, 08/12/10) chlorpromazine HCl (Unverified Allergy, Mild, 08/12/10) haloperidol (Unverified Allergy, Mild, 08/12/10) Home Medications Albuterol Sulfate 18 Gm Hfa.aer.ad, 2 PUFF INH Q4H PRN for SHORTNESS OF BREATH, (Reported) Amitriptyline HCl 75 Mg Tablet, 75 MG PO HS, (Reported) Benztropine Mesylate 1 Mg Tablet, 1 MG PO TID, (Reported) Divalproex Sodium 500 Mg Tablet.dr, 500 MG PO QID, (Reported) Duloxetine HCl 60 Mg Capsule.dr, 60 MG PO DAILY, (Reported) Guaifenesin 200 Mg Tablet, 200 MG PO TID PRN for CONGESTION, (Reported) Hydrocodone/Ibuprofen 1 Each Tablet, 1 TAB PO TID PRN for PAIN-MODERATE, (Reported) Lisinopril 20 Mg Tablet, 20 MG PO DAILY, (Reported) Metoprolol Succinate 50 Mg Tab.er.24h, 50 MG PO HS, (Reported) Naproxen 500 Mg Tablet, 500 MG PO BID PRN for PAIN-MILD, (Reported) Paliperidone 6 Mg Tab.er.24, 6 MG PO HS, (Reported) Polyethylene Glycol 3350 17 Gm Powd.pack, 17 GM PO BID PRN for CONSTIPATION-2ND LINE, (Reported) Pregabalin 150 Mg Capsule, 150 MG PO BID, (Reported) Ranitidine HCl 150 Mg Tablet, 150 MG PO BID, (Reported) Ropinirole HCl 3 Mg Tablet, 3 MG PO 1800, (Reported) Patient Home Medication List Home Medication List Reviewed: Yes (VILMA CAO MD) Review of Systems Constitutional: No fever, No malaise Respiratory: No cough, No short of breath Cardiovascular: No chest pain, No palpitations Musculoskeletal: joint swelling, muscle pain (QUAN HOLLAND STUDENT) Constitutional: see HPI Respiratory: no symptoms reported Cardiovascular: no symptoms reported Gastrointestinal: No abdominal pain, No nausea, No vomiting Musculoskeletal: joint swelling, muscle pain Skin: change in color, lesions (VILMA CAO MD) All Other Systems Reviewed Negative Unless Noted: Yes (VILMA CAO MD) Past Zjnxizc-Lawhaz-Qrqgjb Hx Past Med/Social Hx: Reviewed Nursing Past Med/Soc Hx (VILMA CAO MD) Patient Social History Alcohol Use: Occasionally Uses Recreational Drug Use: No (PAST HX OF MULTIPLE DRUGS) Drug of Choice: METH, Marijuana, Cocaine Smoking Status: Current Everyday Smoker Type Used: Cigarettes Recent Foreign Travel: No Contact w/Someone Who Travel: No Recent Infectious Disease Expo: No Recent Hopitalizations: No (QUAN HOLLAND STUDENT) Alcohol Use: Denies Use Recreational Drug Use: No Smoking Status: Current Everyday Smoker (VILMA CAO MD) Past Medical History Surgeries: Yes (RIGHT HAND, amputation right little toe) Orthopedic Respiratory: No Currently Using CPAP: No Currently Using BIPAP: No Cardiac: Yes Hypertension Neurological: Yes Reproductive Disorders: No Genitourinary: No Gastrointestinal: No Musculoskeletal: Yes Endocrine: Yes ('was diabetic") HEENT: No Cancer: No Psychosocial: Yes (HISTORY OF INTENTIONAL OVERDOSE IN 2003, AND AGAIN 09/15/18) Suicide Attempts, Bipolar, Schizophrenia, Violent Behavior Integumentary: Yes (DIABETIC FOOT ULCER) Blood Disorders: No (QUAN HOLLAND STUDENT) Family Medical History Reviewed Nursing Family Hx (VILMA CAO MD) Diabetes (QUAN HOLLAND STUDENT) No Pertinent Family Hx (VILMA CAO MD) Physical Exam Vital Signs Vital Signs - First Documented 01/26/19 13:08 Temp 36.3 Pulse 81 Resp 16 B/P (MAP) 169/107 (127) Pulse Ox 98 O2 Delivery Room Air (VILMA CAO MD) Vital Signs Capillary Refill : Less Than 3 Seconds (QUAN HOLLAND STUDENT) Height, Weight, BMI Height: 5'10.00" Weight: 224lbs. 1.6oz. 101.896479vv; 37.00 BMI Method:Stated General Appearance: WD/WN, no apparent distress HEENT: PERRL/EOMI; No photophobia Cardiovascular: regular rate, rhythm, no edema, no murmur Respiratory: chest non-tender, lungs clear, normal breath sounds Feet: right foot abrasions/lacerations, right foot infection, right foot limited range of motion, right foot nail injury, right foot pain, right foot soft tissue tenderness, right foot swelling Neurologic/Psychiatric: alert, normal mood/affect, oriented x 3 Skin: normal color, warm/dry (QUAN HOLLAND STUDENT) General Appearance: WD/WN, no apparent distress HEENT: PERRL/EOMI, pharynx normal Neck: full range of motion, supple Cardiovascular: regular rate, rhythm, no edema Respiratory: lungs clear, normal breath sounds Gastrointestinal: non tender, soft Feet: right foot abrasions/lacerations (first and third toe with wounds.), right foot other (erythema noted to for severe third toes and extends to the ankle on the medial aspect. Wound noted about the tail bed on the great toe. Swelling noted on second toe. Overall states it is tender. Is draining serous purulent drainage.) Neurologic/Psychiatric: alert, oriented x 3 Skin: warm/dry, other (wounds as described above.) (VILMA CAO MD) Procedures/Interventions Date of ETT Placement: September 15, 2018 Time of ETT Placement: 2230 (QUAN HOLLAND MED STUDENT) Progress/Results/Core Measures Results/Orders Lab Results Laboratory Tests Test 01/26/19 14:20 Range/Units White Blood Count 6.6 4.3-11.0 10^3/uL Red Blood Count 4.37 4.35-5.85 10^6/uL Hemoglobin 14.5 13.3-17.7 G/DL Hematocrit 41 40-54 % Mean Corpuscular Volume 93 80-99 FL Mean Corpuscular Hemoglobin 33 25-34 PG Mean Corpuscular Hemoglobin Concent 36 32-36 G/DL Red Cell Distribution Width 12.5 10.0-14.5 % Platelet Count 206 130-400 10^3/uL Mean Platelet Volume 9.6 7.4-10.4 FL Neutrophils (%) (Auto) 49 42-75 % Lymphocytes (%) (Auto) 31 12-44 % Monocytes (%) (Auto) 18 H 0-12 % Eosinophils (%) (Auto) 1 0-10 % Basophils (%) (Auto) 1 0-10 % Neutrophils # (Auto) 3.3 1.8-7.8 X 10^3 Lymphocytes # (Auto) 2.1 1.0-4.0 X 10^3 Monocytes # (Auto) 1.2 H 0.0-1.0 X 10^3 Eosinophils # (Auto) 0.1 0.0-0.3 10^3/uL Basophils # (Auto) 0.0 0.0-0.1 10^3/uL Erythrocyte Sedimentation Rate 5 0-15 MM/HR Prothrombin Time 15.5 H 12.2-14.7 SEC INR Comment 1.2 0.8-1.4 Activated Partial Thromboplast Time 26 24-35 SEC D-Dimer 0.51 H 0.00-0.49 UG/ML Sodium Level 125 *L 135-145 MMOL/L Potassium Level 4.4 3.6-5.0 MMOL/L Chloride Level 92 L 98-107 MMOL/L Carbon Dioxide Level 27 21-32 MMOL/L Anion Gap 6 5-14 MMOL/L Blood Urea Nitrogen 10 7-18 MG/DL Creatinine 0.71 0.60-1.30 MG/DL Estimat Glomerular Filtration Rate > 60 BUN/Creatinine Ratio 14 Glucose Level 87 70-105 MG/DL Lactic Acid Level 1.17 0.50-2.00 MMOL/L Calcium Level 9.2 8.5-10.1 MG/DL Corrected Calcium 9.1 8.5-10.1 MG/DL Total Bilirubin 0.8 0.1-1.0 MG/DL Aspartate Amino Transf (AST/SGOT) 75 H 5-34 U/L Alanine Aminotransferase (ALT/SGPT) 115 H 0-55 U/L Alkaline Phosphatase 94 40-136 U/L C-Reactive Protein High Sensitivity 1.42 H 0.00-0.50 MG/DL Total Protein 7.2 6.4-8.2 GM/DL Albumin 4.1 3.2-4.5 GM/DL (VILMA CAO MD) My Orders Orders - VILMA CAO MD Cbc With Automated Diff (01/26/19 13:48) Comprehensive Metabolic Panel (01/26/19 13:48) Blood Culture (01/26/19 13:48) Sputum Culture (01/26/19 13:48) Protime With Inr (01/26/19 13:48) Partial Thromboplastin Time (01/26/19 13:48) Chest 1 View, Ap/Pa Only (01/26/19 13:48) Ed Iv/Invasive Line Start (01/26/19 13:48) Vital Signs Adult Sepsis Patie Q15M (01/26/19 13:48) O2 (01/26/19 13:48) Remove Rings In Anticipation O (01/26/19 13:48) Lactic Acid Analyzer (01/26/19 13:48) Fibrin Degradation Products (01/26/19 13:48) Erythrocyte Sedimentation Rate (01/26/19 13:48) Foot, Right, 3 View (01/26/19 13:59) General/Regular (01/26/19 Lunch) Ed Iv/Invasive Line Start (01/26/19 15:01) Ns Iv 1000 Ml (Sodium Chloride 0.9%) (01/26/19 15:01) Hs C Reactive Protein (01/26/19 15:32) Ketorolac Injection (Toradol Injection) (01/26/19 15:33) Hydrocodone/Apap 5/325 Tablet (Lortab 5 (01/26/19 16:00) Piperacillin Sodium/Tazobactam (Zosyn Vi (01/26/19 16:00) (VILMA CAO MD) Medications Given in ED Current Medications Medications Dose Ordered Sig/Alfredo Route Start Time Stop Time Status Last Admin Dose Admin Acetaminophen/ Hydrocodone Bitart 1 tab ONCE ONCE PO 01/26/19 16:00 01/26/19 16:01 DC 01/26/19 16:20 1 TAB Piperacillin Sod/ Tazobactam Sod 4.5 gm/Sodium Chloride 100 ml @ 200 mls/hr ONCE ONCE IV 01/26/19 16:00 01/26/19 16:29 01/26/19 16:20 200 MLS/HR Sodium Chloride 1,000 ml @ 0 mls/hr Q0M ONCE IV 01/26/19 15:01 01/26/19 15:02 DC 01/26/19 15:31 1,000 MLS/HR (VILMA CAO MD) Vital Signs/I&O 01/26/19 13:08 Temp 36.3 Pulse 81 Resp 16 B/P (MAP) 169/107 (127) Pulse Ox 98 O2 Delivery Room Air (VILMA CAO MD) Blood Pressure Mean: 127 Progress Progress Note : Time: 13:50 Progress Note The patient resting comfortably in the exam room. He will be evaluated for p ossible osteomyelitis/sepsis with plain radiograph of the foot, CBC, blood cultures, CMP, and lactic acid. (QUAN HOLLAND MED STUDENT) Progress Note : Progress Note I have seen and evaluated the patient and agree with above except as indicated. Have directed the plan of care. We will initiate sepsis screen for cellulitis and possible diabetic ulcer of the foot on the right. Patient has previous amputation secondary to infection of the right fifth toe. The patient is hungry so we will go ahead and let him eat. Monitor patient. 1558: Hydrocodone 5/325 given after discussion with Dr. Bourgeois. She accepts him for admission, inpatient status. She does request consult Dr. Denis. 1622: I discussed the case with Dr. Denis and he will see him as well. He is requesting nothing by mouth after 0200 in case he needs to do debridement in the morning, which she is anticipating. Zosyn and vancomycin ordered. Consult for a PICC line placement due to poor IV access. Patient agrees to plan. (VILMA CAO MD) Diagnostic Imaging Diagonstic Imaging: Xray Plain Films/CT/US/NM/MRI: other Comments [facility]. [place], [place] NAME: JAVIER HENLEY JR [facility] REC#: [id number] PT STATUS: REG ER : 1975 PHYSICIAN: VILMA CAO MD ADMIT DATE: 01/26/19/ER Draft Date of Exam:01/26/19 FOOT, RIGHT, 3 VIEW INDICATION: Wound on right great toe. COMPARISON: September 25, 2017. TECHNIQUE: Three radiographs of the right foot dated January 26, 2019. FINDINGS: Amputation of the fifth ray at the level of the mid fifth metatarsal is again identified, appearing stable. Interval healing of previously noted first metatarsal fracture with prominent callus formation and osseous overgrowth. Healing fracture involving the first digit proximal phalanx is identified, which is new from the prior exam. Healed/healing distal tibial and fibular fractures are identified. This is associated with advanced degenerative changes of the ankle. No additional new fracture or dislocation. The Lisfranc joint is well aligned. Soft tissue wound is noted involving the tip of the first toe medially. No associated underlying osseous destruction. However, the distal phalanx of the second digit is essentially not identified on this examination, appearing to be a change from the prior exam. No suspicious radiopaque foreign body. IMPRESSION: Nonvisualization of the second digit distal phalanx, new since prior imaging. This may relate to focal osteomyelitis at this location. Alternatively, interval postsurgical changes involving the second digit could account for these changes. Recommend clinical correlation. Healed/healing fractures involving the first metatarsal, first digit proximal phalanx, tibia and fibula. Fracture involving the first digit proximal phalanx appears new since September 2017, though this does appear nearly completely healed at this time. Soft tissue wound associated with the tip of the first toe without underlying osseous destruction. If there remains clinical concern for underlying osteomyelitis, followup radiographs in 10-14 days would be recommended. Alternatively, MRI could be obtained. Stable amputation of the fifth ray without new bony destruction at this location. Dictated on workstation # [id number] Dict: 01/26/19 1437 Trans: 01/26/19 1449 [id number] Interpreted by: CHRISTOPHER BADILLO MD Electronically signed by: Svetlana Imaging: Xray Plain Films/CT/US/NM/MRI: chest Comments [facility] [place] [place] NAME: JAVIER HENLEY JR [facility] REC#: [id number] PT STATUS: REG ER : 1975 PHYSICIAN: VILMA CAO MD ADMIT DATE: 01/26/19/ER Draft Date of Exam:01/26/19 CHEST 1 VIEW, AP/PA ONLY INDICATION: Tobaccoism and vaping. TIME OF EXAM: 02:24 p.m. COMPARISON: Comparison is made with prior chest from 09/17/2018. FINDINGS: Chronic-appearing left posterior rib fractures are noted. Lungs are clear. There is no effusion or pneumothorax. Heart size is stable. IMPRESSION: No acute cardiopulmonary process is detected. Dictated on workstation # [id number] Dict: 01/26/19 1437 Trans: 01/26/19 1442 [id number] Interpreted by: DAVID PHILLIP MD Electronically signed by: (VILMA CAO MD) Departure Communication (Admissions) Time/Spoke to Admitting Phy: 15:55 Time/Spoke to Consulting Phy: 16:22 (VILMA CAO MD) Impression Primary Impression: Right foot ulcer Qualified Codes: L97.519 - Non-pressure chronic ulcer of other part of right foot with unspecified severity Additional Impression: Cellulitis of right foot Disposition: ADMITTED INPATIENT Condition: Stable Admissions Decision to Admit Reason: Admit from ER (General) Decision to Admit/Date: Jan 26, 2019 Time/Decision to Admit Time: 15:55 (VILMA CAO MD) Departure-Patient Inst. Referrals: [facility] (PCP/Family) Primary Care Physician QUAN HOLLAND MED STUDENT Jan 26, 2019 13:53 VILMA CAO MD Jan 26, 2019 14:58
--- NOTE | 2019-01-26 14:10 | NUR ---
FOOD ORDERED FOR PT.
[2019-01-26 14:31] LABS: BASOPHILS % (AUTO) 1 % (0-10); EOSINOPHILS # (AUTO) 0.1 10^3/uL (0.0-0.3); EOSINOPHILS % (AUTO) 1 % (0-10); HEMATOCRIT 41 % (40-54); HEMOGLOBIN 14.5 G/DL (13.3-17.7); LYMPHOCYTES # (AUTO) 2.1 X 10^3 (1.0-4.0); LYMPHOCYTES % (AUTO) 31 % (12-44); MEAN CORPUSCULAR HEMOGLOBIN 33 PG (25-34); MEAN CORPUSCULAR HGB CONC 36 G/DL (32-36); MEAN CORPUSCULAR VOLUME 93 FL (80-99); MEAN PLATELET VOLUME 9.6 FL (7.4-10.4); MONOCYTES # (AUTO) 1.2 X 10^3 (0.0-1.0); MONOCYTES % (AUTO) 18 % (0-12); NEUTROPHILS # (AUTO) 3.3 X 10^3 (1.8-7.8); NEUTROPHILS % (AUTO) 49 % (42-75); PLATELET COUNT 206 10^3/uL (130-400); RED CELL DISTRIBUTION WIDTH 12.5 % (10.0-14.5); WHITE BLOOD COUNT 6.6 10^3/uL (4.3-11.0)
--- NOTE | 2019-01-26 14:42 | Diagnostic Imaging Report ---
INDICATION: Tobaccoism and vaping. TIME OF EXAM: 02:24 p.m. COMPARISON: Comparison is made with prior chest from 09/17/2018. FINDINGS: Chronic-appearing left posterior rib fractures are noted. Lungs are clear. There is no effusion or pneumothorax. Heart size is stable. IMPRESSION: No acute cardiopulmonary process is detected. Dictated by: Dictated on workstation # [id number]
--- NOTE | 2019-01-26 14:50 | Diagnostic Imaging Report ---
INDICATION: Wound on right great toe. COMPARISON: September 25, 2017. TECHNIQUE: Three radiographs of the right foot dated January 26, 2019. FINDINGS: Amputation of the fifth ray at the level of the mid fifth metatarsal is again identified, appearing stable. Interval healing of previously noted first metatarsal fracture with prominent callus formation and osseous overgrowth. Healing fracture involving the first digit proximal phalanx is identified, which is new from the prior exam. Healed/healing distal tibial and fibular fractures are identified. This is associated with advanced degenerative changes of the ankle. No additional new fracture or dislocation. The Lisfranc joint is well aligned. Soft tissue wound is noted involving the tip of the first toe medially. No associated underlying osseous destruction. However, the distal phalanx of the second digit is essentially not identified on this examination, appearing to be a change from the prior exam. No suspicious radiopaque foreign body. IMPRESSION: Nonvisualization of the second digit distal phalanx, new since prior imaging. This may relate to focal osteomyelitis at this location. Alternatively, interval postsurgical changes involving the second digit could account for these changes. Recommend clinical correlation. Healed/healing fractures involving the first metatarsal, first digit proximal phalanx, tibia and fibula. Fracture involving the first digit proximal phalanx appears new since September 2017, though this does appear nearly completely healed at this time. Soft tissue wound associated with the tip of the first toe without underlying osseous destruction. If there remains clinical concern for underlying osteomyelitis, followup radiographs in 10-14 days would be recommended. Alternatively, MRI could be obtained. Stable amputation of the fifth ray without new bony destruction at this location. Dictated by: Dictated on workstation # [id number]
[2019-01-26 14:51] LABS: FIBRIN DEGRADATION PRODUCTS 0.51 UG/ML (0.00-0.49); INR 1.2 (0.8-1.4); PROTHROMBIN TIME PATIENT 15.5 SEC (12.2-14.7)
[2019-01-26 14:54] LABS: ALANINE AMINOTRANSFERASE 115 U/L (0-55); ALBUMIN 4.1 GM/DL (3.2-4.5); ALKALINE PHOSPHATASE 94 U/L (40-136); BILIRUBIN,TOTAL 0.8 MG/DL (0.1-1.0); BUN/CREATININE RATIO 14; CALCIUM 9.2 MG/DL (8.5-10.1); CARBON DIOXIDE 27 MMOL/L (21-32); CHLORIDE 92 MMOL/L (98-107); CREATININE SERUM 0.71 MG/DL (0.60-1.30); GFR ESTIMATED > 60; GLUCOSE 87 MG/DL (70-105); POTASSIUM 4.4 MMOL/L (3.6-5.0); TOTAL PROTEIN 7.2 GM/DL (6.4-8.2)
[2019-01-26 14:55] LABS: SODIUM 125 MMOL/L (135-145)
[2019-01-26 15:01] LABS: ERYTHROCYTE SEDIMENTATION RATE 5 MM/HR (0-15)
[2019-01-26] MEDS ORDERED: NS IV 1000 ML 1,000 ML IV ONE (15:01)
[2019-01-26] MEDS ORDERED: KETOROLAC 30 MG/ML VIAL IVP STA (15:33)
[2019-01-26] MEDS ORDERED: HYDROcodone/APAP 5 MG/325 MG (LORTAB) TAB PO ONE (16:00)
[2019-01-26] MEDS ORDERED: PIPERACILLIN SODIUM/TAZOBACTAM 4.5 GM in NS (IVPB) 100 ML IV ONE (16:00)
--- NOTE | 2019-01-26 16:26 | NUR ---
FOOD TRAY ORDERED
--- NOTE | 2019-01-26 16:34 | NUR ---
CALLED FOR A ROOM
--- NOTE | 2019-01-26 16:39 | NUR ---
FOOD TRAY GIVEN
--- NOTE | 2019-01-26 17:20 | NUR ---
JAVIER HENLEY JR admitted to room 422-1, with an admitting diagnosis of cellulitis and right foot ulcer, on 01/26/19 from er via w/c, accompanied by ed staff. JAVIER HENLEY JR introduced to surroundings, call light, bed controls, phone, TV, temperature control, lights, meal times, smoking policy, visitor policy, side rail policy, bathrooms and showers. Patient Rights given to patient in the handbook. JAVIER HENELY JR verbalizes understanding that [facility] is not responsible for the loss or damage to any personal effects or valuables that are kept in the patients posession during their hospitalization. JAVIER HENLEY JR verbalizes understanding of Interdisciplinary Patient Education. Patient and/or family were informed about the Rapid Response Team and its purpose.
[2019-01-26 17:30] VITALS: BP 180/96
--- NOTE | 2019-01-26 17:56 | NUR ---
VANCOMYCIN DOSING: ADJ BW 90 KG DOSING WT 117 KG SCr 0.71, EST CrCl 167 LOADING DOSE: 2,500 MG MAIN DOSE: 1,750 MG IV BID VANCOMYCIN TROUGH DUE 01/28/19 05:00 IF TROUGH > 20 HOLD 01/28/19 06:00 DOSE.
[2019-01-26] MEDS ORDERED: VANCOMYCIN 2,500 MG/NS 500 ML IVPB IV NR ×2 (18:00)
[2019-01-26] MEDS ORDERED: IBUPROFEN 600 MG (MOTRIN) TAB PO PRN (18:00)
[2019-01-26] MEDS ORDERED: CATHETER FLUSH 10 ML SYR IV PRN (18:00)
--- NOTE | 2019-01-26 18:15 | CONSULTATION REPORT ---
DATE OF SERVICE: 01/26/2019 ATTENDING PRIMARY CARE PHYSICIAN: [facility]. HISTORY OF PRESENT ILLNESS: The patient is a 43-year-old male who presented to the Emergency Department with a chief complaint of a painful swollen right great toe. This gentleman has had an extensive past medical history including previous history of diabetes, hypertension, psychiatric disorders as well as multiple suicidal ideation attempts. He has had issues with diabetic foot ulcerations in the past and has undergone a right fifth great toe amputation in the past. He presents with pain and swelling along the first right great toe with an area of black eschar as well as surrounding redness and erythema along the plantar aspect of the toe. He has been seen as an outpatient at [facility] and then treated with local wound care as well as oral antibiotics; however, this has not improved. PAST MEDICAL HISTORY: Previous history of methamphetamine, marijuana, cocaine use history, diabetes, bipolar disorder, schizophrenia, multiple suicide attempts and history of hypertension. PAST SURGICAL HISTORY: Right fifth toe amputation, right hand surgery. ALLERGIES: LATEX, CHLORPROMAZINE AND HALOPERIDOL. MEDICATIONS: Albuterol MDI 2 puffs q.4 hours p.r.n., amitriptyline 75 mg daily, benztropine 1 mg t.i.d., Divalproex sodium 500 mg q.i.d. duloxetine 60 mg daily, Guaifenesin 200 mg t.i.d. p.r.n., hydrocodone p.r.n., lisinopril 20 mg daily, metoprolol 50 mg daily, naproxen 500 mg b.i.d. p.r.n., paliperidone 6 mg daily, MiraLax p.r.n., pregabalin 150 mg b.i.d., ranitidine 150 mg b.i.d. and ropinirole 3 mg daily. SOCIAL HISTORY: Positive smoke greater than 30 pack years. Previous history of multiple illicit drugs including methamphetamine, marijuana and cocaine. Occasionally uses alcohol. FAMILY HISTORY: Noncontributory. VITAL SIGNS: Temperature 96.3, blood pressure 169/107, pulse 81, respirations 16, pulse ox 98% on room air. REVIEW OF SYSTEMS: This is a slightly obese male who is awake and alert and does report pain of the right foot. He also does have some chronic changes of diabetic neuropathy. He does not report any shortness of breath or difficulty breathing. No chest pain, palpitations, diaphoresis. No nausea, vomiting; however, has not been eating well lately. He does not report any episodes of major issues with diarrhea nor constipation as well as no red blood per rectum, no dark tarry stools. No fever, chills, no recent inadvertent weight loss. He does report pain and swelling on the right great toe that radiates to the mid-calf region. PHYSICAL EXAMINATION: ABDOMEN: Soft, nontender, nondistended. SKIN: Warm, dry. LABORATORY DATA: WBC 6.6, hemoglobin 14.5, hematocrit 41, platelets 206. INR 1.2. BUN 10, creatinine 0.71, albumin is 4.1. ASSESSMENT AND PLAN: A 43-year-old male with diabetic versus ischemic foot ulceration of the right great toe with a dry eschar. There is minimal redness, swelling or acute infection or abscess formation. However, due to the identification of the large dry eschar this will need to be debrided to allow for promotion of granulation tissue and prevention of long-term infection. We will proceed with debridement in the operating room and continue IV antibiotics as well as most likely a PICC line placement. Job ID: [id number] DocumentID: [id number] Dictated Date: 01/26/2019 16:51:39 [employer] Technician Date: 01/26/2019 18:14:08 Dictated By: ANSELMO LAN MD
[2019-01-26 19:24] VITALS: BP 176/89
--- NOTE | 2019-01-26 20:25 | NUR ---
PT WANTED TO RESTART A FEW HOME MEDICATIONS. TRAZODONE 100 MG AND AMITRIPTYLINE [address] EDWARDS. NEW ORDERS RECEIVED.
[2019-01-26] MEDS ORDERED: diphenhydrAMINE 25 MG TAB (BENADRYL) PO PRN (21:15)
[2019-01-26] MEDS ORDERED: CALCIUM CARBONATE 500 MG (TUMS) TAB.CHEW PO PRN (21:15)
[2019-01-26] MEDS ORDERED: ONDANSETRON 4 MG (ZOFRAN) ORAL DISSOLVE TAB PO PRN (21:15)
[2019-01-26] MEDS ORDERED: ACETAMINOPHEN 500 MG TAB (TYLENOL) PO PRN (21:15)
[2019-01-26] MEDS ORDERED: DOCUSATE SODIUM 100 MG (COLACE) CAP PO PRN (21:15)
[2019-01-26] MEDS ORDERED: MELATONIN 3 MG TABLET PO PRN (21:15)
[2019-01-26] MEDS ORDERED: LOPERAMIDE 2 MG (IMODIUM) TABLET PO PRN (21:15)
[2019-01-26] MEDS: AMITRIPTYLINE 50 MG (ELAVIL) TAB PO SCH (21:16)
[2019-01-26] MEDS: traZODone 100 MG (DESYREL) TAB PO SCH (21:16)
[2019-01-26] MEDS: AMITRIPTYLINE 25 MG (ELAVIL) TAB PO SCH (21:16)
[2019-01-27] VITALS (14 sets, daily range): BP systolic 133–163; BP diastolic 66–90
[2019-01-27] MEDS: HYDROcodone/APAP 5 MG/325 MG (LORTAB) TAB PO PRN ×4 (00:54→21:50)
[2019-01-27] MEDS ORDERED: NS IV 1000 ML 1,000 ML IV SCH (02:00)
[2019-01-27] MEDS: VANCOMYCIN 1,750 MG/NS 500 ML IVPB IV SCH ×4 (05:00→18:18)
[2019-01-27 05:27] LABS: BASOPHILS % (AUTO) 1 % (0-10); EOSINOPHILS # (AUTO) 0.2 10^3/uL (0.0-0.3); EOSINOPHILS % (AUTO) 4 % (0-10); HEMATOCRIT 37 % (40-54); HEMOGLOBIN 13.3 G/DL (13.3-17.7); LYMPHOCYTES % (AUTO) 39 % (12-44); MEAN CORPUSCULAR HEMOGLOBIN 34 PG (25-34); MEAN CORPUSCULAR HGB CONC 36 G/DL (32-36); MEAN CORPUSCULAR VOLUME 94 FL (80-99); MEAN PLATELET VOLUME 9.6 FL (7.4-10.4); MONOCYTES # (AUTO) 1.1 X 10^3 (0.0-1.0); MONOCYTES % (AUTO) 22 % (0-12); NEUTROPHILS # (AUTO) 1.8 X 10^3 (1.8-7.8); NEUTROPHILS % (AUTO) 35 % (42-75); PLATELET COUNT 170 10^3/uL (130-400); RED CELL DISTRIBUTION WIDTH 12.1 % (10.0-14.5); WHITE BLOOD COUNT 5.1 10^3/uL (4.3-11.0)
[2019-01-27 05:47] LABS: ALANINE AMINOTRANSFERASE 98 U/L (0-55); ALBUMIN 3.6 GM/DL (3.2-4.5); ALKALINE PHOSPHATASE 76 U/L (40-136); BILIRUBIN,TOTAL 0.6 MG/DL (0.1-1.0); BUN/CREATININE RATIO 17; CALCIUM 8.9 MG/DL (8.5-10.1); CARBON DIOXIDE 22 MMOL/L (21-32); CHLORIDE 96 MMOL/L (98-107); GFR ESTIMATED > 60; GLUCOSE 99 MG/DL (70-105); POTASSIUM 4.5 MMOL/L (3.6-5.0); SODIUM 127 MMOL/L (135-145)
[2019-01-27 06:22] LABS: BAND NEUTROPHILS 1 %; BASOPHILS % (MANUAL) 1 %; EOSINOPHILS % (MANUAL) 8 %; LYMPHOCYTES % (MANUAL) 41 %; MONOCYTES % (MANUAL) 19 %; NEUTROPHILS % (MANUAL) 30 %
[2019-01-27 06:23] LABS: RBC MORPH NORMAL
[2019-01-27] MEDS: ALPRAZolam 0.25 MG (XANAX) TAB PO PRN (08:07)
[2019-01-27] MEDS: PIPERACILLIN/TAZO 4.5 GM/NS 100 ML IV SCH ×6 (08:07→22:44)
[2019-01-27] MEDS: SENNA W/DOCUSATE (SENOKOT S) TABLET PO SCH ×2 (08:30→20:21)
[2019-01-27] MEDS ORDERED: TRAZ-190 PO (09:13)
[2019-01-27] MEDS ORDERED: TRAM50TA2 PO (09:13)
[2019-01-27] MEDS ORDERED: AMIT100T2 PO (09:13)
[2019-01-27] MEDS ORDERED: CARI4.5C PO (09:13)
--- NOTE | 2019-01-27 09:16 | NUR ---
WENT OVER THE EXT MED HX WITH THE PATIENT AND HE VERIFIED HOW HE TAKES HIS MEDICATIONS.
--- NOTE | 2019-01-27 10:31 | NUR ---
DR LAN WAS CALLED , HE CALLED BACK AND THIS RN WAS IN ISOLATION RM -- PT HAD PULLED OUT HIS IV AND AND WOULD NOT LET STAFF RESTART IV -- PT VOICED HE HAD HEP C AND HE WILL SHARE IT WITH EVERYONE --
[2019-01-27] MEDS ORDERED: MIDAZOLAM 2 MG/2 ML (VERSED) VIAL ONE (10:49)
[2019-01-27] MEDS ORDERED: fentaNYL INJECTION 100 MCG/2 ML AMP ONE (10:49)
[2019-01-27] MEDS ORDERED: proPOfol 200 MG/20 ML (DIPRIVAN) VIAL IV ONE (10:49)
--- NOTE | 2019-01-27 10:52 | Progress Note-Pre Operative ---
Pre-Operative Progress Note H&P Reviewed The H&P was reviewed, patient examined and no changes noted. Date Seen by Provider: Jan 27, 2019 Time Seen by Provider: 09:30 Date H&P Reviewed: Jan 27, 2019 Time H&P Reviewed: 09:25 Pre-Operative Diagnosis: Ischemic Right great toe ulcer AMANDO MARTINO APRN Jan 27, 2019 10:52
[2019-01-27] MEDS ORDERED: LIDOCAINE 1% INJ 20 ML 20 ML VIAL ONE (11:45)
[2019-01-27] MEDS ORDERED: BUP/EPI 0.25% 1:200,000 (MARCAINE) 10 ML VIAL IJ ONE (11:45)
[2019-01-27] MEDS ORDERED: DEXAMETHASONE 10 MG/ML (DECADRON) 1 ML VIAL ONE (11:54)
[2019-01-27] MEDS ORDERED: ONDANSETRON 4 MG/2 ML (SDV) Z0FRAN ONE (11:54)
[2019-01-27] MEDS ORDERED: SEVOFLURANE (ULTANE) 15 ML INHAL SOLN ONE ×2 (11:54→13:09)
[2019-01-27] MEDS ORDERED: LACTATED RINGERS 1,000 ML IV PRN ×2 (12:05→12:08)
[2019-01-27] MEDS ORDERED: ceFAZolin INJECTION 2,000 MG ONE (12:22)
--- NOTE | 2019-01-27 12:47 | History & Physical-Hospitalist ---
History of Present Illness HPI/Chief Complaint Chief complaint: Right toe cellulitis with abscess. HPI: This is a 43yoWM with a prior history of amputations with a history of diabetes and noncompliance and meth use, who presents to the ER with complaints of right toe swelling and edema found to have indication for IV antibiotics and general surgery consultation for debridement. At this current time Pt is still complaining of pain but he has a history of significant addiction in the past so will manage that as conservatively as possible with Hydrocodone and will wait for Dr. Denis's recommendation. Source: patient Exam Limitations: no limitations Date Seen 01/27/19 Time Seen by a Provider: 09:00 Attending Physician Erika Bourgeois DO [facility] Referring Physician Date of Admission Jan 26, 2019 at 16:23 Home Medications & Allergies Home Medications Reviewed patient Home Medication Reconciliation performed by pharmacy medication reconciliations community planning technician and/or nursing. Patients Allergies have been reviewed. Allergies Allergies Coded Allergies latex (Unverified Allergy, Intermediate, 01/26/19) Haloperidol Lactate (Unverified Allergy, Mild, 01/26/19) chlorpromazine HCl (Unverified Allergy, Mild, 01/26/19) haloperidol (Unverified Allergy, Mild, 01/26/19) Past Rgmllzz-Grpudm-Hwyojj Hx Past Med/Social Hx: Reviewed Nursing Past Med/Soc Hx, Reviewed and Corrections made Patient Social History Marrital Status: single Employed/Student: unemployed Alcohol Use: Denies Use Recreational Drug Use: No Drug of Choice: METH, Marijuana, Cocaine Smoking Status: Current Everyday Smoker Type Used: Cigarettes Recent Foreign Travel: No Contact w/other who traveled: No Recent Hopitalizations: No Recent Infectious Disease Expo: No Past Medical History Surgeries: Orthopedic Currently Using CPAP: No Currently Using BIPAP: No Cardiac: Hypertension Reproductive: No Psychosocial: Suicide Attempts, Bipolar, Schizophrenia, Violent Behavior History of Blood Disorders: No Family History Reviewed Nursing Family Hx No Pertinent Family Hx Review of Systems Constitutional: see HPI Respiratory: no symptoms reported Physical Exam Physical Exam Vital Signs Vital Signs - First Documented 01/26/19 13:08 Temp 36.3 Pulse 81 Resp 16 B/P (MAP) 169/107 (127) Pulse Ox 98 O2 Delivery Room Air Capillary Refill : Less Than 3 Seconds Height, Weight, BMI Height: 5'10.00" Weight: 258lbs. 6.1oz. 117.853867mj; 37.07 BMI Method:Stated General Appearance: No Apparent Distress, WD/WN, Chronically ill Respiratory: Chest Non Tender, Lungs Clear, Normal Breath Sounds, No Accessory Muscle Use, No Respiratory Distress Cardiovascular: Regular Rate, Rhythm, No Edema, No Gallop, No JVD, No Murmur, Normal Peripheral Pulses Neurologic/Psychiatric: Alert, Oriented x3, No Motor/Sensory Deficits, Normal Mood/Affect Results Results/Procedures Labs Laboratory Tests 01/26/19 14:20 01/27/19 04:54 Patient resulted labs reviewed. Assessment/Plan Admission Diagnosis Assessment: Right foot cellulitis versus gangrene HTN Smoker Meth use Plan: Abx Dr Denis consultation Admission Status: Inpatient Order (span 2 midnights) Reason for Inpatient Admission: IV abx and debridement will require 3 days Diagnosis/Problems Diagnosis/Problems (1) Right foot ulcer Status: Acute Qualifiers: Non-pressure ulcer stage: unspecified non-pressure ulcer stage Qualified Codes: L97.519 - Non-pressure chronic ulcer of other part of right foot with unspecified severity (2) Cellulitis of right foot Status: Acute Clinical Quality Measures DVT/VTE Risk/Contraindication: Risk Factor Score Per Nursin RFS Level Per Nursing on Admit: 4+=Very High ERIKA BOURGEOIS DO Jan 27, 2019 12:47
--- NOTE | 2019-01-27 12:55 | Progress Note-Post Operative ---
Post-Operative Progess Note Surgeon (s)/Certified Professional Midwife (s) Surgeon ANSELMO LAN MD Certified Professional Midwife: bernardo bruno [employer] Pre-Operative Diagnosis Ischemic Right great toe ulcer Post-Operative Diagnosis same Procedure & Operative Findings Date of Procedure 01/27/19 Procedure Performed/Findings right great toe PIP joint amputation. digital nerve block Anesthesia Type GET Estimated Blood Loss Estimated blood loss (mL): minimal Specimens/Packing Specimens Removed right great toe ANSELMO LAN MD Jan 27, 2019 12:55
[2019-01-27] MEDS ORDERED: GLYCOPYRROLATE 0.2 MG/ML (ROBINUL) 2 ML VIAL ONE (13:09)
[2019-01-27] MEDS ORDERED: NEOSTIGMINE 3 MG/3 ML VIAL ONE (13:09)
[2019-01-27] MEDS ORDERED: ACHD5005 PO (13:12)
--- NOTE | 2019-01-27 13:13 | Discharge Inst-Surgical ---
D/C Lap Instructions-RIKY New, Converted, or Re-Newed RX: RX on Chart Follow Up Appt in 2 weeks Activity as tolerated No driving for 24 hours No driving while on pain medications Incentive Spirometry use every 2 hours while awake Regular Diet Symptoms to Report: Fever over 101 degree F, Nausea/Vomiting Infection Signs and Symptoms to report: Increased redness, Foul odor of wound, Increased drainage Bathing instructions: May shower Operative Area Clean/Dry; Keep incision clean/dry If any problems/questions: Contact your physician or go to Emergency Room ANSELMO LAN MD Jan 27, 2019 13:13
[2019-01-27] MEDS ORDERED: ONDANSETRON 4 MG/2 ML (SDV) Z0FRAN IVP PRN (13:15)
[2019-01-27] MEDS ORDERED: HYDROmorphone 2 MG/ML VIAL (DILAUDID) IV ONE (13:15)
--- NOTE | 2019-01-27 14:15 | NUR ---
BACK TO -- REPORT FROM BUSINESS OFFICE MANAGER ROSE --DSG TO R FT D/I -- EXPOSED TOES -- PT CAN MOVE THEN AND THEY ARE WARM TO TOUCH AND PT CAN FEEL THIS RN TOUCHING HIS TOES
[2019-01-27] MEDS: morphine INJ 4 MG/ML 1 ML (VIAL/SYRINGE) IVP PRN ×3 (15:13→20:21)
--- NOTE | 2019-01-27 17:49 | OPERATIVE REPORT ---
DATE OF SERVICE: 01/27/2019 ADMITTING PHYSICIAN: Dr. Bourgeois. ATTENDING PRIMARY CARE PHYSICIAN: [facility]. PREOPERATIVE DIAGNOSIS: Diabetic right great toe ulceration. POSTOPERATIVE DIAGNOSIS: Diabetic right great toe ulceration. PROCEDURE: Right great toe amputation at the proximal interphalangeal joint. SURGEON: Anselmo Lan MD ANESTHESIA: General endotracheal. ESTIMATED BLOOD LOSS: Minimal. FINDINGS: Full-thickness necrosis of the tip of the right great toe. He does have palpable dorsalis pedis and posterior tibial pulses. DISPOSITION: The patient tolerated the procedure well. The patient is a 43-year-old male with a longstanding history of medical noncompliance as well as smoking. He also has an extensive illicit drug use including methamphetamines, marijuana and cocaine; however, states that he has not taken these in several years. Upon examination, there is an inflammation and necrosis along the tip of the right great toe. He does have a large vessel flow with a palpable dorsalis pedis and posterior tibial pulses. He states that he has been trying to take care of the wound and has been following his physician at [facility]. However, this has failed to heal. It was explained to the patient that with just debridement this would take significant longer for closure versus doing an amputation of the proximal interphalangeal joint and he wanted to proceed with this procedure. DESCRIPTION OF PROCEDURE: The patient was brought to the operating room, laid supine on the table. After adequate IV pain and sedative medications and general endotracheal intubation, the abdomen was prepped and draped in standard surgical fashion. The foot was prepped and draped in standard surgical fashion. We then proceeded with a digital nerve block using 0.5% Marcaine with epinephrine. We then proceeded to measure the distance from the proximal interphalangeal joint to create our skin flaps as well as excising the necrotic tissue. This was a dry necrosis. No wet gangrene was identified. In a fish mouth fashion the skin was then cut using a 15 blade. We then proceeded to dissect the subcutaneous tissue using electrocautery. We then proceeded to elevate the periosteum at the distal interphalangeal joint along the phalanx proximally using a periosteal elevator. The tendons were then cut with electrocautery and we completed the amputation at the proximal interphalangeal joint. Good hemostasis was observed. We then proceeded with approximation of the superior and inferior flaps using 3-0 Vicryl interrupted suture and the skin approximated using 2-0 Prolene interrupted sutures. Wound was then cleaned and covered with Hari wrap followed by Kerlix gauze. The patient tolerated the procedure well. We will recommend continued medical management with seeing a podiatry on a regular basis for a local wound care as well as tight glycemic control and medical treatment of his diabetes and peripheral neuropathy. Job ID: [id number] DocumentID: [id number] Dictated Date: 01/27/2019 13:08:29 Corrections Nurse Date: 01/27/2019 17:48:53 Dictated By: ANSELMO LAN MD [facility]
[2019-01-27] MEDS: AMITRIPTYLINE 25 MG (ELAVIL) TAB PO SCH (20:21)
[2019-01-27] MEDS: AMITRIPTYLINE 50 MG (ELAVIL) TAB PO SCH (20:21)
[2019-01-27] MEDS: traZODone 100 MG (DESYREL) TAB PO SCH (20:21)
[2019-01-28] MEDS: morphine INJ 4 MG/ML 1 ML (VIAL/SYRINGE) IVP PRN ×4 (00:45→12:52)
[2019-01-28] MEDS: HYDROcodone/APAP 5 MG/325 MG (LORTAB) TAB PO PRN ×3 (01:58→10:00)
[2019-01-28] MEDS: ALPRAZolam 0.25 MG (XANAX) TAB PO PRN ×2 (01:58→10:55)
[2019-01-28 03:17] VITALS: BP 132/84
[2019-01-28 04:24] LABS: BASOPHILS % (AUTO) 1 % (0-10); EOSINOPHILS # (AUTO) 0.2 10^3/uL (0.0-0.3); EOSINOPHILS % (AUTO) 3 % (0-10); HEMATOCRIT 39 % (40-54); HEMOGLOBIN 13.5 G/DL (13.3-17.7); LYMPHOCYTES # (AUTO) 1.3 X 10^3 (1.0-4.0); LYMPHOCYTES % (AUTO) 24 % (12-44); MEAN CORPUSCULAR HEMOGLOBIN 33 PG (25-34); MEAN CORPUSCULAR HGB CONC 35 G/DL (32-36); MEAN CORPUSCULAR VOLUME 95 FL (80-99); MONOCYTES % (AUTO) 19 % (0-12); NEUTROPHILS # (AUTO) 2.9 X 10^3 (1.8-7.8); NEUTROPHILS % (AUTO) 53 % (42-75); PLATELET COUNT 197 10^3/uL (130-400); RED CELL DISTRIBUTION WIDTH 12.5 % (10.0-14.5); WHITE BLOOD COUNT 5.3 10^3/uL (4.3-11.0)
[2019-01-28 04:43] LABS: ALANINE AMINOTRANSFERASE 122 U/L (0-55); ALBUMIN 3.6 GM/DL (3.2-4.5); ALKALINE PHOSPHATASE 87 U/L (40-136); BILIRUBIN,TOTAL 0.5 MG/DL (0.1-1.0); BUN/CREATININE RATIO 10; CALCIUM 8.8 MG/DL (8.5-10.1); CARBON DIOXIDE 28 MMOL/L (21-32); CHLORIDE 97 MMOL/L (98-107); GFR ESTIMATED > 60; GLUCOSE 122 MG/DL (70-105); POTASSIUM 4.7 MMOL/L (3.6-5.0); SODIUM 132 MMOL/L (135-145); TOTAL PROTEIN 6.1 GM/DL (6.4-8.2)
[2019-01-28] MEDS: VANCOMYCIN 1,750 MG/NS 500 ML IVPB IV SCH ×2 (04:56)
[2019-01-28] MEDS ORDERED: TROUGH ORDER-PHARMACY XX NR (06:00)
[2019-01-28] MEDS: PIPERACILLIN/TAZO 4.5 GM/NS 100 ML IV SCH ×2 (06:03)
--- NOTE | 2019-01-28 06:50 | Anesthesia-General Post-Op ---
General Patient Condition Mental Status/LOC: Same as Preop Cardiovascular: Satisfactory Nausea/Vomiting: Absent Respiratory: Satisfactory Pain: Controlled Complications: Absent Post Op Complications Complications None Follow Up Care/Instructions Patient Instructions None needed. Anesthesia/Patient Condition Patient Condition Patient is doing well, no complaints, stable vital signs, no apparent adverse anesthesia problems. No complications reported per nursing. D/C home per [facility] [place] [place] Criteria: Yes KENDRA FRIAS CRNA Jan 28, 2019 06:50
[2019-01-28 07:32] VITALS: BP 173/97
[2019-01-28] MEDS: SENNA W/DOCUSATE (SENOKOT S) TABLET PO SCH (08:31)
[2019-01-28] MEDS ORDERED: CEPH-507 PO (12:15)
--- NOTE | 2019-01-28 12:15 | Discharge Summary ---
Discharge Summary Hospital Course Problems/Dx: (1) Right foot ulcer Status: Acute Qualifiers: Qualified Codes: L97.519 - Non-pressure chronic ulcer of other part of right foot with unspecified severity (2) Cellulitis of right foot Status: Acute Hospital Course Date of Admission: Jan 26, 2019 at 16:23 Admission Diagnosis : [facility] Date of Discharge: 01/28/19 Discharge Diagnosis: Right great toe cellulitis with abscess requiring amputation, Meth use, history of narcotic dependency Hospital Course: Patient had a short hospital course that started with right toe cellulitis with abscess formation prompting Dr. Denis general surgery consultation which resulted in surgery Right great toe amputation at the proximal interphalangeal joint. Cellulitis was managed with broad-spectrum antibiotics and considering the slight cellulitis that remained he was sent home on Keflex and will change dressing every day and have follow-up with Dr. Denis [facility] one week. Labs and Pending Lab Test: Laboratory Tests 01/28/19 04:13: White Blood Count 5.3, Red Blood Count 4.07L, Hemoglobin 13.5, Hematocrit 39L, Mean Corpuscular Volume 95, Mean Corpuscular Hemoglobin 33, Mean Corpuscular Hemoglobin Concent 35, Red Cell Distribution Width 12.5, Platelet Count 197, Mean Platelet Volume 9.0, Neutrophils (%) (Auto) 53, Lymphocytes (%) (Auto) 24, Monocytes (%) (Auto) 19H, Eosinophils (%) (Auto) 3, Basophils (%) (Auto) 1, Neutrophils # (Auto) 2.9, Lymphocytes # (Auto) 1.3, Monocytes # (Auto) 1.0, Eosinophils # (Auto) 0.2, Basophils # (Auto) 0.0, Sodium Level 132L, Potassium Level 4.7, Chloride Level 97L, Carbon Dioxide Level 28, Anion Gap 7, Blood Urea Nitrogen 8, Creatinine 0.80, Estimat Glomerular Filtration Rate > 60, BUN/Creatinine Ratio 10, Glucose Level 122H, Calcium Level 8.8, Corrected Calcium 9.1, Total Bilirubin 0.5, Aspartate Amino Transf (AST/SGOT) 95H, Alanine Aminotransferase (ALT/SGPT) 122H, Alkaline Phosphatase 87, Total Protein 6.1L, Albumin 3.6, Vancomycin Level Trough 16.0 Microbiology 01/26/19 Blood Culture - Preliminary, Resulted No growth Home Meds Active Hydrocodone/Acetaminophen 5/325mg Tablet (Acetaminophen/Hydrocodone Bitart) 1 Tab Tab 1 Tab PO Q4H PRN 7 Days Reported Vraylar (Cariprazine Hydrochloride) 4.5 Mg Capsule 4.5 Mg PO DAILY Amitriptyline HCl 100 Mg Tablet 100 Mg PO HS Tramadol HCl 50 Mg Tablet 50 Mg PO TID PRN Trazodone HCl 100 Mg Tablet 100 Mg PO DAILY Miralax (Polyethylene Glycol 3350) 17 Gm Powd.pack 17 Gm PO BID PRN Ranitidine HCl 150 Mg Tablet 150 Mg PO BID Ventolin Hfa (Albuterol Sulfate) 18 Gm Hfa.aer.ad 2 Puff INH Q4H PRN Lisinopril 20 Mg Tablet 20 Mg PO DAILY Ropinirole HCl 3 Mg Tablet 3 Mg PO 2000 Metoprolol Succinate 50 Mg Tab.er.24h 50 Mg PO DAILY Divalproex Sodium 500 Mg Tablet.dr 500 Mg PO BID Duloxetine HCl 60 Mg Capsule.dr 60 Mg PO DAILY Assessment/Pt Instructions Follow-up with Dr. adame when we can change dressing every day Discharge Planning: <30 minutes discharge planning Discharge Instructions Discharge Diet: No Restrictions Activity as Tolerated: Yes Pneumonia Vaccine Order Indica: Yes Discharge Physical Examination Vital Signs Vital Signs Date Time Temp Pulse Resp B/P (MAP) Pulse Ox O2 Delivery O2 Flow Rate FiO2 01/28/19 08:00 Room Air 01/28/19 07:32 36.4 89 18 173/97 (122) 97 01/27/19 13:50 3 General Appearance: No Apparent Distress, WD/WN Respiratory: Chest Non Tender, Lungs Clear, Normal Breath Sounds, No Accessory Muscle Use, No Respiratory Distress Cardiovascular: Regular Rate, Rhythm, No Edema, No Gallop, No JVD, No Murmur, Normal Peripheral Pulses Allergies: Coded Allergies: latex (Unverified Allergy, Intermediate, 01/26/19) Haloperidol Lactate (Unverified Allergy, Mild, 01/26/19) chlorpromazine HCl (Unverified Allergy, Mild, 01/26/19) haloperidol (Unverified Allergy, Mild, 01/26/19) Discharge Summary Date of Admission Jan 26, 2019 at 16:23 Date of Discharge Discharge Date: Jan 28, 2019 Admission Diagnosis Assessment: Right foot cellulitis versus gangrene HTN Smoker Meth use Plan: Abx Dr Denis consultation Discharge Diagnosis (1) Right foot ulcer Status: Acute Qualifiers: Qualified Codes: L97.519 - Non-pressure chronic ulcer of other part of right foot with unspecified severity (2) Cellulitis of right foot Status: Acute Clinical Quality Measures DVT/VTE Risk/Contraindication: Risk Factor Score Per Nursin RFS Level Per Nursing on Admit: 4+=Very High ISAK EDWARDS DO Jan 28, 2019 12:15
--- NOTE | 2019-01-28 14:26 | NUR ---
Initial visit: Offered emotional support as pt was prepared for discharge. Engaged in active listening and compassionate presence.
--- NOTE | 2019-02-03 14:21 | Physician Query Clarification ---
PQ-Conflicting Diagnosis Admission/Discharge Admission Date: Jan 26, 2019 at 16:23 Discharge Date: Jan 28, 2019 at 13:30 The medical record reflects the following clinical scenario: History/Risk Factors: Foot ulcer, cellulitis, gangrene, hx diabetic foot ulcers Clinical Findings: pain, swollen rt great toe with black eschar and redness and erythema plantar aspect Treatment: PIP amputation Rt.great toe Question: Do you agree with the impression of the Diabetic ulcer Rt great toe or Ischemic ulcer Rt great toe per Dr. Lan. Dr. Lan documented Diabetic Rt great toe ulceration in the operative report and Ischemic Rt great toe ulcer in the postop note. Please clarify if the patient has a diabetic ulcer or an Ischemic ulcer of the Rt. great toe. Please document a response in Progress Note or Discharge Summary. 1. Yes, Diabetic Rt great toe ulcer 2. No, not diabetic Rt. great toe ulcer. Patient has an Ischemic ulcer of the Rt. great toe 3. Other, with explanation of clinical findings 4. Clinically undetermined, no explanation for clinical findings. PHYSICIAN RESPONSE Do you agree w/Consulting Dx?: Yes Please remember a lack of response to the above will prompt a phone page by CDI/Coding staff. In responding to this query, please exercise your independent professional judgment. The purpose of this communication is to more accurately reflect the complexity of your patients condition. The fact that a question is asked does not imply that any particular answer is desired or expected. Thank you for your timely response to this clarification. Requestors name: Chito THIS PHYSICIAN QUERY FORM IS A PERMANENT PART OF THE MEDICAL RECORD CHITO PETTY Feb 03, 2019 14:21 ANSELMO LAN MD Feb 03, 2019 15:45
== END 2019-01-28 13:30 | disposition home or self-care (01) | DRG 617 ==
LOC: EDUNIT# 12:49 → ER 12:50 → 4TH 16:23
PROVIDERS: ADMIT Internal Medicine; ATTEND Internal Medicine
PROC: 0Y6P0Z2 Detachment at Right 1st Toe, Mid, Open Approach (ICD-10-PCS; principal; 2019-01-27 12:03)
DX: E11.621 Type 2 diabetes mellitus with foot ulcer (principal); L97.514 Non-pressure chronic ulcer of other part of right foot with necrosis of bone; E11.52 Type 2 diabetes mellitus with diabetic peripheral angiopathy with gangrene; L03.115 Cellulitis of right lower limb; L03.031 Cellulitis of right toe; E11.42 Type 2 diabetes mellitus with diabetic polyneuropathy; F17.210 Nicotine dependence, cigarettes, uncomplicated; I10 Essential (primary) hypertension; F31.9 Bipolar disorder, unspecified; F20.9 Schizophrenia, unspecified; R46.89 Other symptoms and signs involving appearance and behavior; Z89.421 Acquired absence of other right toe(s); Z91.19 Patient's noncompliance with other medical treatment and regimen; Z91.5 Personal history of self-harm
CPT/HCPCS: 36415; 71045; 73630; 80053; 80202; 83605; 85007; 85025; 85027; 85379; 85610; 85652; 85730; 86141; 87040; 88305; 88311; 96361; 96365; 96375

== ENCOUNTER 2019-02-15 05:36 | Emergency (ER) | payer MEDICARE, MEDICAID ==
[~2019-02-15] VITALS: Ht 177.8 cm; Wt 113.6 kg
[~2019-02-15 05:36] MED LIST changes: +ACHD5005 PO; +AMIT100T2 PO; +CARI4.5C PO; +CEPH-507 PO; +TRAZ-190 PO
[2019-02-15 06:01] LABS: BILIRUBIN,URINE NEGATIVE (NEGATIVE); CLARITY,URINE BLOODY; COLOR,URINE RED; GLUCOSE, URINE (UA) NEGATIVE (NEGATIVE); KETONES,URINE 1+ (NEGATIVE); LEUKOCYTE ESTERASE ,URINE NEGATIVE (NEGATIVE); NITRITE,URINE NEGATIVE (NEGATIVE); PH,URINE 8 (5-9); PROTEIN,URINE 4+ (NEGATIVE); UROBILINOGEN,URINE NORMAL (NORMAL)
[2019-02-15] MEDS ORDERED: NS IV 500 ML 500 ML IV ONE (06:10)
--- NOTE | 2019-02-15 06:10 | ED GU-Male ---
General Chief Complaint: - Urinary Stated Complaint: BLOOD IN URINE Source: patient Exam Limitations: no limitations History of Present Illness Date Seen by Provider: Feb 15, 2019 Time Seen by Provider: 05:50 Initial Comments The patient presents the ER by private conveyance with chief complaint that sometime last night he started having some painful urination, dribbling of urine, hematuria with clots. He says is happened once before and he went to his doctor, Dr. Adorno and was put on some antibiotics. No history of kidney stones. Last sexual intercourse was over a year ago. He denies that he has placed anything inside the urethra or had any trauma recently. He is not having any nausea. Rates his pain as an 8 out of 10. He has not taken anything for the pain yet. He takes several psych meds to help him with sleep and night terrors and no longer takes anything for diabetes because his A1c has been good. He does not check his blood sugar routinely. He denies a history of cystoscopy. Allergies and Home Medications Allergies Coded Allergies: latex (Unverified Allergy, Intermediate, 01/26/19) Haloperidol Lactate (Unverified Allergy, Mild, 01/26/19) chlorpromazine HCl (Unverified Allergy, Mild, 01/26/19) haloperidol (Unverified Allergy, Mild, 01/26/19) Home Medications Albuterol Sulfate 18 Gm Hfa.aer.ad, 2 PUFF INH Q4H PRN for SHORTNESS OF BREATH, (Reported) Amitriptyline HCl 100 Mg Tablet, 100 MG PO HS, (Reported) Cariprazine Hydrochloride 4.5 Mg Capsule, 4.5 MG PO DAILY, (Reported) Cephalexin 500 Mg Capsule, 500 MG PO TID Prescribed by: ISAK EDWARDS on 01/28/19 1215 Cephalexin 500 Mg Tablet, 500 MG PO BID Prescribed by: KEVIN ROBB on 02/15/19 0744 Divalproex Sodium 500 Mg Tablet.dr, 500 MG PO BID, (Reported) Duloxetine HCl 60 Mg Capsule.dr, 60 MG PO DAILY, (Reported) Hydrocodone Bit/Acetaminophen 1 Tab Tab, 1 TAB PO Q4H PRN for PAIN-MODERATE Prescribed by: ANSELMO LAN on 01/27/19 1312 Hydrocodone Bit/Acetaminophen 1 Tab Tab, 1 EACH PO Q4-6HR PRN for PAIN-MODERATE Prescribed by: KEVIN ROBB on 02/15/19 0744 Lisinopril 20 Mg Tablet, 20 MG PO DAILY, (Reported) Metoprolol Succinate 50 Mg Tab.er.24h, 50 MG PO DAILY, (Reported) Polyethylene Glycol 3350 17 Gm Powd.pack, 17 GM PO BID PRN for CONSTIPATION-2ND LINE, (Reported) Ranitidine HCl 150 Mg Tablet, 150 MG PO BID, (Reported) Ropinirole HCl 3 Mg Tablet, 3 MG PO 1999, (Reported) Tramadol HCl 50 Mg Tablet, 50 MG PO TID PRN for PAIN-MODERATE, (Reported) Trazodone HCl 100 Mg Tablet, 100 MG PO DAILY, (Reported) Patient Home Medication List Home Medication List Reviewed: Yes Review of Systems Review of Systems Constitutional: No chills, No diaphoresis EENTM: No ear discharge, No hearing loss Respiratory: No cough, No short of breath Cardiovascular: No chest pain, No edema Gastrointestinal: No abdominal pain, No nausea, No vomiting Genitourinary: see HPI, dysuria, hematuria, incontinence, pain, urgency Musculoskeletal: No back pain, No joint pain Past Xyslxnz-Kqvdiu-Madoea Hx Patient Social History Alcohol Use: Occasionally Uses Alcohol Beverage of Choice: Beer Recreational Drug Use: No (PAST HX OF MULTIPLE DRUGS) Drug of Choice: METH, Marijuana, Cocaine Type Used: Cigarettes Recent Foreign Travel: No Contact w/Someone Who Travel: No Recent Hopitalizations: Yes Physical Abuse: No Sexual Abuse: No Mistreated: No Fear: No Past Medical History Surgeries: Yes (RIGHT HAND, amputation right little toe, AMPUTATION RIGHT BIG TOE) Orthopedic Respiratory: No Currently Using CPAP: No Currently Using BIPAP: No Cardiac: Yes Hypertension Neurological: Yes Reproductive Disorders: No Genitourinary: No Gastrointestinal: No Musculoskeletal: Yes Endocrine: Yes ('was diabetic") HEENT: No Cancer: No Psychosocial: Yes (HISTORY OF INTENTIONAL OVERDOSE IN 2003, AND 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 6.1oz. 117.797238ar; 37.07 BMI Method:Stated General Appearance: WD/WN, mild distress HEENT: PERRL/EOMI, pharynx normal Cardiovascular: normal peripheral pulses, regular rate, rhythm, no edema Respiratory: no respiratory distress, no accessory muscle use Gastrointestinal: normal bowel sounds, soft, tenderness (suprapubic) Neurologic/Psychiatric: alert, normal mood/affect, oriented x 3 Skin: normal color, warm/dry Procedures/Interventions Date of ETT Placement: September 15, 2018 Time of ETT Placement: 2230 Progress/Results/Core Measures Suspected Sepsis SIRS Temperature: Pulse: Respiratory Rate: Laboratory Tests 02/15/19 06:10: White Blood Count 6.7 Blood Pressure / Mean: Laboratory Tests 02/15/19 06:10: Creatinine 0.82, Platelet Count 246, Total Bilirubin 0.9 Results/Orders Lab Results Laboratory Tests Test 02/15/19 05:45 02/15/19 06:10 Range/Units Urine Color RED H Urine Clarity BLOODY H Urine pH 8 5-9 Urine Specific [place] 1.015 L 1.016-1.022 Urine Protein 4+ NEGATIVE Urine Glucose (UA) NEGATIVE NEGATIVE Urine Ketones 1+ H NEGATIVE Urine Nitrite NEGATIVE NEGATIVE Urine Bilirubin NEGATIVE NEGATIVE Urine Urobilinogen NORMAL NORMAL MG/DL Urine Leukocyte Esterase NEGATIVE NEGATIVE Urine RBC (Auto) 5+ H NEGATIVE Urine RBC TNTC H /HPF Urine WBC RARE /HPF Urine Squamous Epithelial Cells RARE /HPF Urine Crystals NONE /LPF Urine Bacteria NEGATIVE /HPF Urine Casts NONE /LPF Urine Mucus NEGATIVE /LPF Urine Culture Indicated NO White Blood Count 6.7 4.3-11.0 10^3/uL Red Blood Count 4.49 4.35-5.85 10^6/uL Hemoglobin 14.7 13.3-17.7 G/DL Hematocrit 41 40-54 % Mean Corpuscular Volume 90 80-99 FL Mean Corpuscular Hemoglobin 33 25-34 PG Mean Corpuscular Hemoglobin Concent 36 32-36 G/DL Red Cell Distribution Width 12.0 10.0-14.5 % Platelet Count 246 130-400 10^3/uL Mean Platelet Volume 9.2 7.4-10.4 FL Neutrophils (%) (Auto) 47 42-75 % Lymphocytes (%) (Auto) 33 12-44 % Monocytes (%) (Auto) 17 H 0-12 % Eosinophils (%) (Auto) 2 0-10 % Basophils (%) (Auto) 1 0-10 % Neutrophils # (Auto) 3.2 1.8-7.8 X 10^3 Lymphocytes # (Auto) 2.2 1.0-4.0 X 10^3 Monocytes # (Auto) 1.1 H 0.0-1.0 X 10^3 Eosinophils # (Auto) 0.1 0.0-0.3 10^3/uL Basophils # (Auto) 0.0 0.0-0.1 10^3/uL Sodium Level 126 L 135-145 MMOL/L Potassium Level 4.6 3.6-5.0 MMOL/L Chloride Level 92 L 98-107 MMOL/L Carbon Dioxide Level 23 21-32 MMOL/L Anion Gap 11 5-14 MMOL/L Blood Urea Nitrogen 12 7-18 MG/DL Creatinine 0.82 0.60-1.30 MG/DL Estimat Glomerular Filtration Rate > 60 BUN/Creatinine Ratio 15 Glucose Level 140 H 70-105 MG/DL Calcium Level 9.5 8.5-10.1 MG/DL Corrected Calcium 9.3 8.5-10.1 MG/DL Total Bilirubin 0.9 0.1-1.0 MG/DL Aspartate Amino Transf (AST/SGOT) 160 H 5-34 U/L Alanine Aminotransferase (ALT/SGPT) 282 H 0-55 U/L Alkaline Phosphatase 104 40-136 U/L Total Protein 7.3 6.4-8.2 GM/DL Albumin 4.2 3.2-4.5 GM/DL My Orders Orders - KEVIN ROBB Ua Culture If Indicated (02/15/19 05:56) Ketorolac Injection (Toradol Injection) (02/15/19 06:15) Ed Iv/Invasive Line Start (02/15/19 06:10) Ns Iv 500 Ml (Sodium Chloride 0.9%) (02/15/19 06:10) Cbc With Automated Diff (02/15/19 06:10) Comprehensive Metabolic Panel (02/15/19 06:10) Bladder Scan (02/15/19 06:10) Ct Abd/Pelvis Wo(Kidney Stone) (02/15/19 06:25) Ceftriaxone For Iv Use (Rocephin For I (02/15/19 06:30) Fentanyl Injection (Sublimaze Injection (02/15/19 06:45) Medications Given in ED Current Medications Medications Dose Ordered Sig/Alfredo Route Start Time Stop Time Status Last Admin Dose Admin Ceftriaxone Sodium 1000 mg/ Sterile Water 10 ml @ 200 mls/hr ONCE ONCE IV 02/15/19 06:30 02/15/19 06:32 DC 02/15/19 06:49 200 MLS/HR Fentanyl Citrate 50 mcg ONCE ONCE IVP 02/15/19 06:45 02/15/19 06:46 DC 02/15/19 06:49 50 MCG Ketorolac Tromethamine 30 mg ONCE ONCE IVP 02/15/19 06:15 02/15/19 06:16 DC 02/15/19 06:20 30 MG Sodium Chloride 500 ml @ 0 mls/hr Q0M ONCE IV 02/15/19 06:10 02/15/19 06:12 DC 02/15/19 06:20 500 MLS/HR Vital Signs/I&O 02/15/19 05:46 Temp 35.6 Pulse 87 Resp 20 B/P (MAP) 150/114 (126) Capillary Refill : Progress Note : Time: 06:09 Progress Note Concern for overflow incontinence secondary to blood clots seen in urine specimen. Plan to do a bladder scan after micturition. Urinalysis, basic labs. UTI versus kidney stone versus polyp/tumor? Postvoid residual no more than 170 cc. Diagnostic Imaging Diagonstic Imaging: CT (without IV contrast) Plain Films/CT/US/NM/MRI: abdomen, pelvis Comments No Renal or ureterolithiasis. No Dilated ureter. Unremarkable abdominal CT. NAME: JAVIER HENLEY [facility] REC#: [id number] PT STATUS: REG ER : 1975 PHYSICIAN: KEVIN ROBB MD ADMIT DATE: 02/15/19/ER Draft Date of Exam:02/15/19 CT ABD/PELVIS WO(KIDNEY STONE) PROCEDURE: CT urinary tract, rule out kidney stone. TECHNIQUE: Multiple contiguous axial images were obtained through the abdomen and pelvis without the use of intravenous contrast. Auto Exposure Controls were utilized during the CT exam to meet ALARA standards for radiation dose reduction. INDICATION: Gross hematuria, painful urination. CORRELATION STUDY: None FINDINGS: Heart is enlarged. Prominent interstitial markings at the lung bases. No consolidating infiltrates. Ununited left posterior 7th and 8th rib fracture with adjacent pleural thickening. Liver and spleen both enlarged with likely some degree of hepatic steatosis. Gallbladder, adrenal glands unremarkable. Fatty atrophic changes of the pancreas. Abdominal aorta is with mild wall calcification, nonaneurysmal. A few small non-pathologically enlarged central retroperitoneal lymph nodes. Kidneys are symmetric in size. No calcification. No obstructive uropathy. The urinary bladder does demonstrate some areas of asymmetric bladder wall thickening. It is somewhat more pronounced on the film. Gastrointestinal tract with moderate severity fecal retention and distal colonic fecal loading. Normal appendix. No abdominal ascites or free air. Prostate gland within normal limits in size. IMPRESSION: 1. Negative for nephroureterolithiasis or obstructive uropathy. 2. There is some suggestion of abnormal contour and density about the urinary bladder particularly along its posterior and superior margins. This could be potentially reflective of cystitis. Given history, underlying mass lesion is not excluded, consideration for cystoscopy would be recommended. 3. Moderate severity fecal retention with a distal colonic fecal loading. 4. Hepatosplenomegaly with changes reflecting hepatic steatosis. 5. Rather prominent in number but largely non-pathologically enlarged central retroperitoneal lymph nodes. Findings currently nonspecific as to etiology or significance. Dictated on workstation # [id number] Dict: 02/15/19 0729 Trans: 02/15/19 0752 [id number] Interpreted by: KRISTOPHER TRENT DO Electronically signed by: Reviewed: Reviewed by Me Departure Impression Primary Impression: Gross hematuria Disposition: 01 HOME, SELF-CARE Condition: Stable Departure-Patient Inst. Decision time for Depature: 07:42 Referrals: [facility] (PCP/Family) Primary Care Physician ERICA CADET MD Patient Instructions: Blood in the Urine (Hematuria), Adult (DC) Add. Discharge Instructions: Continue to drink fluids. Use Tylenol 1000 mg every 8 hours as needed for pain. Ibuprofen 800 mg every 8 hours as needed for pain. Hydrocodone one tablet every 6 hours as needed for breakthrough pain. Call urology and request an appointment today. Return to the ER if you're unable to urinate or you're having severe pain. Follow-up with your primary care doctor for help managing your symptoms. The antibiotic, Keflex one tablet twice a day for the next week to help prevent urinary tract infection. All discharge instructions reviewed with patient and/or family. Voiced understanding. Scripts Hydrocodone Bit/Acetaminophen (Hydrocodone/Acetaminophen 5/325mg Tablet) 1 Tab Tab 1 EACH PO Q4-6HR PRN for PAIN-MODERATE MDD 10 for 3 Days, #8 TAB 0 Refills Prov: KEVIN ROBB 02/15/19 Cephalexin (Cephalexin) 500 Mg Tablet 500 MG PO BID for 7 Days, #14 TAB 0 Refills Prov: KEVIN ROBB 02/15/19 Work/School Note: Work Release Form Date Seen in the Emergency Department: Feb 15, 2019 Return to Work: Feb 16, 2019 Restrictions: No Restrictions Copy Copies To 1: ERICA CADET MD, TITUS J Feb 15, 2019 06:10
[2019-02-15 06:13] LABS: BACTERIA,URINE NEGATIVE /HPF; RBC,URINE TNTC /HPF; SQUAMOUS EPITHELIAL CELL,UR RARE /HPF; WBC,URINE RARE /HPF
[2019-02-15] MEDS ORDERED: KETOROLAC 30 MG/ML VIAL IVP ONE (06:15)
[2019-02-15 06:18] LABS: BASOPHILS % (AUTO) 1 % (0-10); EOSINOPHILS # (AUTO) 0.1 10^3/uL (0.0-0.3); EOSINOPHILS % (AUTO) 2 % (0-10); HEMATOCRIT 41 % (40-54); HEMOGLOBIN 14.7 G/DL (13.3-17.7); LYMPHOCYTES # (AUTO) 2.2 X 10^3 (1.0-4.0); LYMPHOCYTES % (AUTO) 33 % (12-44); MEAN CORPUSCULAR HEMOGLOBIN 33 PG (25-34); MEAN CORPUSCULAR HGB CONC 36 G/DL (32-36); MEAN CORPUSCULAR VOLUME 90 FL (80-99); MEAN PLATELET VOLUME 9.2 FL (7.4-10.4); MONOCYTES # (AUTO) 1.1 X 10^3 (0.0-1.0); MONOCYTES % (AUTO) 17 % (0-12); NEUTROPHILS # (AUTO) 3.2 X 10^3 (1.8-7.8); NEUTROPHILS % (AUTO) 47 % (42-75); PLATELET COUNT 246 10^3/uL (130-400); WHITE BLOOD COUNT 6.7 10^3/uL (4.3-11.0)
[2019-02-15] MEDS ORDERED: cefTRIAXone FOR IV USE 1,000 MG in WATER (STERILE) FOR INJECTION 10 ML IV ONE (06:30)
[2019-02-15 06:41] LABS: ALANINE AMINOTRANSFERASE 282 U/L (0-55); ALBUMIN 4.2 GM/DL (3.2-4.5); ALKALINE PHOSPHATASE 104 U/L (40-136); BILIRUBIN,TOTAL 0.9 MG/DL (0.1-1.0); BUN/CREATININE RATIO 15; CALCIUM 9.5 MG/DL (8.5-10.1); CARBON DIOXIDE 23 MMOL/L (21-32); CHLORIDE 92 MMOL/L (98-107); CREATININE SERUM 0.82 MG/DL (0.60-1.30); GFR ESTIMATED > 60; GLUCOSE 140 MG/DL (70-105); POTASSIUM 4.6 MMOL/L (3.6-5.0); SODIUM 126 MMOL/L (135-145); TOTAL PROTEIN 7.3 GM/DL (6.4-8.2)
[2019-02-15] MEDS ORDERED: fentaNYL INJECTION 100 MCG/2 ML AMP IVP ONE (06:45)
[2019-02-15] MEDS ORDERED: ACHD5005 PO (07:44)
[2019-02-15] MEDS ORDERED: CEPH500T PO (07:44)
--- NOTE | 2019-02-15 07:52 | Diagnostic Imaging Report ---
PROCEDURE: CT urinary tract, rule out kidney stone. TECHNIQUE: Multiple contiguous axial images were obtained through the abdomen and pelvis without the use of intravenous contrast. Auto Exposure Controls were utilized during the CT exam to meet ALARA standards for radiation dose reduction. INDICATION: Gross hematuria, painful urination. CORRELATION STUDY: None FINDINGS: Heart is enlarged. Prominent interstitial markings at the lung bases. No consolidating infiltrates. Ununited left posterior 7th and 8th rib fracture with adjacent pleural thickening. Liver and spleen both enlarged with likely some degree of hepatic steatosis. Gallbladder, adrenal glands unremarkable. Fatty atrophic changes of the pancreas. Abdominal aorta is with mild wall calcification, nonaneurysmal. A few small non-pathologically enlarged central retroperitoneal lymph nodes. Kidneys are symmetric in size. No calcification. No obstructive uropathy. The urinary bladder does demonstrate some areas of asymmetric bladder wall thickening. It is somewhat more pronounced on the film. Gastrointestinal tract with moderate severity fecal retention and distal colonic fecal loading. Normal appendix. No abdominal ascites or free air. Prostate gland within normal limits in size. IMPRESSION: 1. Negative for nephroureterolithiasis or obstructive uropathy. 2. There is some suggestion of abnormal contour and density about the urinary bladder particularly along its posterior and superior margins. This could be potentially reflective of cystitis. Given history, underlying mass lesion is not excluded, consideration for cystoscopy would be recommended. 3. Moderate severity fecal retention with a distal colonic fecal loading. 4. Hepatosplenomegaly with changes reflecting hepatic steatosis. 5. Rather prominent in number but largely non-pathologically enlarged central retroperitoneal lymph nodes. Findings currently nonspecific as to etiology or significance. Dictated by: Dictated on workstation # [id number]
[2019-02-15 08:04] VITALS: BP 132/100
== END 2019-02-15 08:04 | disposition home or self-care (01) ==
LOC: EDUNIT# 05:36 → ER 05:38
DX: R31.0 Gross hematuria (principal); E11.621 Type 2 diabetes mellitus with foot ulcer; L97.509 Non-pressure chronic ulcer of other part of unspecified foot with unspecified severity; I10 Essential (primary) hypertension; F31.9 Bipolar disorder, unspecified; F20.9 Schizophrenia, unspecified; F91.8 Other conduct disorders; Z91.5 Personal history of self-harm; Z91.14 Patient's other noncompliance with medication regimen; Z91.040 Latex allergy status; Z88.8 Allergy status to other drugs, medicaments and biological substances; Z89.411 Acquired absence of right great toe; Z89.421 Acquired absence of other right toe(s)
CPT/HCPCS: 36415; 74176; 80053; 81000; 85025

== ENCOUNTER 2019-03-28 12:32 | Inpatient (IN) | payer MEDICARE, MEDICAID ==
[~2019-03-28] VITALS: Ht 177.8 cm; Wt 122.0 kg
[~2019-03-28 12:32] MED LIST changes: +CEPH500T PO
--- NOTE | 2019-03-28 13:04 | NUR ---
SEE LIST FOR CURRENT MEDS
--- NOTE | 2019-03-28 13:43 | ED GI ---
General Chief Complaint: Abdominal/GI Problems Stated Complaint: CONSTIPATION Nursing Triage Note: PT CO OF ABD PAIN STATES HAS NOT HAD BM FOR 7 DAYS, STATES HAS USED 4 EMEMAS, 4 BOTTLES OF MAG CITRITE AND STOOL SOFTENERS. CO OF ABD PAIN 01/18 Sepsis Screen: No Definite Risk Source of Information: Patient Exam Limitations: No Limitations History of Present Illness Date Seen by Provider: Mar 28, 2019 Time Seen by Provider: 13:25 Initial Comments 43-year-old gentleman that presents to the emergency Department with complaints of constipation 1 week. Patient reports using several enemas as well as several bottles of magnesium citrate and daily stool softeners without relief. Patient reports being evaluated about 2 months prior for hematuria and having a CT scan of his abdomen at that time. Patient reports that has been several days since he has passed flatus. Patient denies nausea or vomiting. His food and fluid intake has been minimal, he last ate at 1800 yesterday, deer soup. Timing/Duration: 6-7 Days Severity/Quality: Mild Location: LUQ, LLQ Radiation: No Radiation Activities at Onset: None Modifying Factors: Improves With Resting Associated Symptoms: Denies Symptoms Allergies and Home Medications Allergies Coded Allergies: latex (Unverified Allergy, Intermediate, 01/26/19) Haloperidol Lactate (Unverified Allergy, Mild, 01/26/19) chlorpromazine HCl (Unverified Allergy, Mild, 01/26/19) haloperidol (Unverified Allergy, Mild, 01/26/19) Home Medications Albuterol Sulfate 18 Gm Hfa.aer.ad, 2 PUFF INH Q4H PRN for SHORTNESS OF BREATH, (Reported) Amitriptyline HCl 100 Mg Tablet, 100 MG PO HS, (Reported) Cariprazine Hydrochloride 4.5 Mg Capsule, 4.5 MG PO DAILY, (Reported) Cephalexin 500 Mg Capsule, 500 MG PO TID Prescribed by: ISAK EDWARDS on 01/28/19 1215 Cephalexin 500 Mg Tablet, 500 MG PO BID Prescribed by: KEVIN ROBB on 02/15/19 0744 Divalproex Sodium 500 Mg Tablet.dr, 500 MG PO BID, (Reported) Duloxetine HCl 60 Mg Capsule.dr, 60 MG PO DAILY, (Reported) Hydrocodone Bit/Acetaminophen 1 Tab Tab, 1 TAB PO Q4H PRN for PAIN-MODERATE Prescribed by: ANSELMO LAN on 01/27/19 1312 Hydrocodone Bit/Acetaminophen 1 Tab Tab, 1 EACH PO Q4-6HR PRN for PAIN-MODERATE Prescribed by: KEVIN ROBB on 02/15/19 0744 Lisinopril 20 Mg Tablet, 20 MG PO DAILY, (Reported) Metoprolol Succinate 50 Mg Tab.er.24h, 50 MG PO DAILY, (Reported) Polyethylene Glycol 3350 17 Gm Powd.pack, 17 GM PO BID PRN for CONSTIPATION-2ND LINE, (Reported) Ranitidine HCl 150 Mg Tablet, 150 MG PO BID, (Reported) Ropinirole HCl 3 Mg Tablet, 3 MG PO 1999, (Reported) Tramadol HCl 50 Mg Tablet, 50 MG PO TID PRN for PAIN-MODERATE, (Reported) Trazodone HCl 100 Mg Tablet, 100 MG PO DAILY, (Reported) Patient Home Medication List Home Medication List Reviewed: Yes Review of Systems Review of Systems Constitutional: no symptoms reported, see HPI EENTM: No Symptoms Reported, See HPI Respiratory: No Symptoms Reported, See HPI Cardiovascular: No Symptoms Reported, See HPI Gastrointestinal: Abdomen Distended, Abdominal Pain, Constipated; Denies Diarrhea, Denies Difficulty Swallowing, Denies Nausea; Poor Appetite, Poor Fluid Intake; Denies Vomiting Genitourinary: No Symptoms Reported, See HPI Musculoskeletal: no symptoms reported, see HPI Skin: no symptoms reported, see HPI Psychiatric/Neurological: No Symptoms Reported, See HPI Endocrine: No Symptoms Reported, See HPI Hematologic/Lymphatic: No Symptoms Reported, See HPI All Other Systems Reviewed Negative Unless Noted: Yes Past Sjozsmv-Dwysji-Tjdbam Hx Past Med/Social Hx: Reviewed Nursing Past Med/Soc Hx Patient Social History Alcohol Use: Denies Use Alcohol Beverage of Choice: Beer Drug of Choice: METH, Marijuana, Cocaine Smoking Status: Current Everyday Smoker Type Used: Cigarettes Recent Foreign Travel: No Contact w/Someone Who Travel: No Recent Infectious Disease Expo: No Recent Hopitalizations: Yes Immunizations Up To Date Date of Influenza Vaccine: Jan 09, 2019 Past Medical History Surgeries: Yes (RIGHT HAND, amputation right little toe, AMPUTATION RIGHT BIG TOE) Orthopedic Respiratory: No Currently Using CPAP: No Currently Using BIPAP: No Cardiac: Yes Hypertension Neurological: Yes Reproductive Disorders: No Genitourinary: No Gastrointestinal: No Musculoskeletal: Yes Endocrine: Yes ('was diabetic") HEENT: No Cancer: No Psychosocial: Yes (HISTORY OF INTENTIONAL OVERDOSE IN 2003, AND AGAIN 09/15/18) Suicide Attempts, Bipolar, Schizophrenia, Violent Behavior Integumentary: Yes (DIABETIC FOOT ULCER) Blood Disorders: No Family Medical History No Pertinent Family Hx Physical Exam Vital Signs Vital Signs - First Documented 03/28/19 12:57 Temp 37.5 Pulse 92 Resp 18 B/P (MAP) 184/105 (131) Pulse Ox 100 Capillary Refill : Less Than 3 Seconds Height/Weight/BMI Height: 5'10.00" Weight: 258lbs. 6.1oz. 117.003623vc; 39.00 BMI Method:Stated General Appearance: WD/WN, no apparent distress HEENT: PERRL/EOMI, normal ENT inspection, TMs normal, pharynx normal Neck: non-tender, full range of motion, supple, normal inspection Respiratory: chest non-tender, lungs clear, normal breath sounds, no respiratory distress, no accessory muscle use Cardiovascular: normal peripheral pulses, regular rate, rhythm, no edema, no gallop, no JVD Gastrointestinal: soft, abnormal bowel sounds (hypoactive Right less active then Left), distended; No guarding, No rebound; tenderness; No hernia, No mass; hepatomegaly, spleenomegaly Extremities: normal range of motion, non-tender Back: normal inspection, no CVA tenderness Neurologic/Psychiatric: camp advisor II-XII nml as tested, no motor/sensory deficits, alert, normal mood/affect Skin: normal color, warm/dry Lymphatic: no adenopathy Exam Comments Rectal exam, no impacted feces, prostate non-tender and smooth. No hemorrhoids. Procedures/Interventions Date of ETT Placement: September 15, 2018 Time of ETT Placement: 2230 Progress/Results/Core Measures Results/Orders Lab Results Laboratory Tests Test 03/28/19 14:05 03/28/19 14:12 Range/Units Urine Color YELLOW Urine Clarity CLOUDY Urine pH 8.0 5-9 Urine Specific [place] 1.015 L 1.016-1.022 Urine Protein 1+ H NEGATIVE Urine Glucose (UA) NEGATIVE NEGATIVE Urine Ketones NEGATIVE NEGATIVE Urine Nitrite NEGATIVE NEGATIVE Urine Bilirubin NEGATIVE NEGATIVE Urine Urobilinogen 1.0 < = 1.0 MG/DL Urine Leukocyte Esterase 3+ H NEGATIVE Urine RBC (Auto) TRACE-I NEGATIVE Urine RBC 0-2 /HPF Urine WBC TNTC H /HPF Urine Squamous Epithelial Cells 0-2 /HPF Urine Crystals NONE /LPF Urine Bacteria MODERATE H /HPF Urine Casts NONE /LPF Urine Mucus NEGATIVE /LPF Urine Culture Indicated YES White Blood Count 7.4 4.3-11.0 10^3/uL Red Blood Count 4.22 L 4.35-5.85 10^6/uL Hemoglobin 14.1 13.3-17.7 G/DL Hematocrit 38 L 40-54 % Mean Corpuscular Volume 90 80-99 FL Mean Corpuscular Hemoglobin 33 25-34 PG Mean Corpuscular Hemoglobin Concent 37 H 32-36 G/DL Red Cell Distribution Width 11.7 10.0-14.5 % Platelet Count 230 130-400 10^3/uL Mean Platelet Volume 9.1 7.4-10.4 FL Neutrophils (%) (Auto) 57 42-75 % Lymphocytes (%) (Auto) 27 12-44 % Monocytes (%) (Auto) 14 H 0-12 % Eosinophils (%) (Auto) 1 0-10 % Basophils (%) (Auto) 0 0-10 % Neutrophils # (Auto) 4.2 1.8-7.8 X 10^3 Lymphocytes # (Auto) 2.0 1.0-4.0 X 10^3 Monocytes # (Auto) 1.1 H 0.0-1.0 X 10^3 Eosinophils # (Auto) 0.1 0.0-0.3 10^3/uL Basophils # (Auto) 0.0 0.0-0.1 10^3/uL Sodium Level 131 L 135-145 MMOL/L Potassium Level 4.5 3.6-5.0 MMOL/L Chloride Level 95 L 98-107 MMOL/L Carbon Dioxide Level 27 21-32 MMOL/L Anion Gap 9 5-14 MMOL/L Blood Urea Nitrogen 7 7-18 MG/DL Creatinine 0.68 0.60-1.30 MG/DL Estimat Glomerular Filtration Rate > 60 BUN/Creatinine Ratio 10 Glucose Level 136 H 70-105 MG/DL Calcium Level 9.5 8.5-10.1 MG/DL Corrected Calcium 9.3 8.5-10.1 MG/DL Total Bilirubin 0.6 0.1-1.0 MG/DL Aspartate Amino Transf (AST/SGOT) 18 5-34 U/L Alanine Aminotransferase (ALT/SGPT) 14 0-55 U/L Alkaline Phosphatase 91 40-136 U/L Total Protein 7.5 6.4-8.2 GM/DL Albumin 4.2 3.2-4.5 GM/DL Amylase Level 29 25-125 U/L Lipase 136 H 8-78 U/L My Orders Orders - PAULETTE KAPLAN YASEMIN Cbc With Automated Diff (03/28/19 13:44) Comprehensive Metabolic Panel (03/28/19 13:44) Ua Culture If Indicated (03/28/19 13:44) Ns Iv 1000 Ml (Sodium Chloride 0.9%) (03/28/19 13:45) Ketorolac Injection (Toradol Injection) (03/28/19 14:00) Ct Abdomen/Pelvis W Wo (03/28/19 14:10) Iohexol Injection (Omnipaque 350 Mg/Ml 1 (03/28/19 14:30) Received Contrast (Hold Metformin- Contr (03/28/19 14:30) Ns (Ivpb) (Sodium Chloride 0.9% Ivpb Bag (03/28/19 14:30) Urine Culture (03/28/19 14:05) Amylase (03/28/19 15:30) Lipase (03/28/19 15:30) Na Phos/Na Biphos Enema (Fleet Enema Tod (03/28/19 15:45) Medications Given in ED Current Medications Medications Dose Ordered Sig/Alfredo Route Start Time Stop Time Status Last Admin Dose Admin Iohexol 100 ml ONCE ONCE IV 03/28/19 14:30 03/28/19 14:31 DC 03/28/19 14:58 100 ML Ketorolac Tromethamine 30 mg ONCE ONCE IVP 03/28/19 14:00 03/28/19 14:01 DC 03/28/19 14:17 30 MG Sodium Biphosphate/ Sodium Phosphate 1 ea ONCE ONCE ME 03/28/19 15:45 03/28/19 15:46 DC 03/28/19 16:10 1 EA Sodium Chloride 100 ml ONCE ONCE IV 03/28/19 14:30 03/28/19 14:31 DC 03/28/19 14:58 80 ML Sodium Chloride 1,000 ml @ 0 mls/hr Q0M ONCE IV 03/28/19 13:45 11/18/19 13:46 DC 03/28/19 14:17 0 MLS/HR Vital Signs/I&O 03/28/19 12:57 Temp 37.5 Pulse 92 Resp 18 B/P (MAP) 184/105 (131) Pulse Ox 100 Blood Pressure Mean: 131 POS Progress Progress Note : Time: 13:25 Progress Note Patient seen and evaluated. Will obtain labs and normal saline 1 L per IV, Zofran 4 mg IV for nausea and Toradol 30 mg IV for pain. [address] with/without contrast. Agent reports improvement in pain and nausea. 1500 CT shows acute pancreatitis and ilues transverse colon, no other acute findings. 1600 fleets enema administered, encourage patient to hold for 10-[address] Edwards, agreed to admission, will consult Drs. Trejo and Kayleigh 1635 Patient had 2 large bowel movements, first more formed, second softer with some watery diarrhea. Patient reports abdomen feeling much better. Awaiting RN to call report to transfer to floor. 1645 [address]rs. Baird, agreed to see patient on consult. Dr. Dixon recommended Rocephin IV for UTI. Diagnostic Imaging Diagonstic Imaging: CT Plain Films/CT/US/NM/MRI: abdomen, pelvis Comments NAME: KALEJAVIER Benny [facility] REC#: [id number] PT STATUS: REG ER : 1975 PHYSICIAN: PAULETTE KAPLAN ADMIT DATE: 03/28/19/ER Signed POSDate of Exam:03/28/19 CT ABDOMEN/PELVIS W WO PROCEDURE: CT abdomen and pelvis with and without contrast. TECHNIQUE: Precontrast acquisitions were acquired through the abdomen and pelvis. Multiple contiguous axial images were obtained through the abdomen and pelvis after the administration of intravenous contrast. Auto Exposure Controls were utilized during the CT exam to meet ALARA standards for radiation dose reduction. INDICATION: Abdominal and flank pain. COMPARISON: Comparison is made to study of 02/15/2019. FINDINGS: There are multiple nonacute fractures involving the visualized lower ribs. No focal hepatic, gallbladder, or splenic abnormality is identified. There has been development of mild diffuse edema and/or inflammation throughout the pancreas without evidence of organized fluid collection. No adrenal gland or renal abnormality identified. There is no free fluid. There is gaseous distention and dilatation of the transverse colon. There is no evidence of pelvic inflammation. Partially opacified urinary bladder is unremarkable. IMPRESSION: Findings are most suggestive of acute pancreatitis with associated ileus in the transverse colon. There is no evidence of appendicitis, urinary tract obstruction, or other acute abnormality. Dictated by: Dictated on workstation # [id number] Dict: 03/28/19 1517 Trans: 03/28/19 1522 [id number] Interpreted by: YONATAN ALLEN MD Electronically signed by: YONATAN ALLEN MD 03/28/19 1522 Departure Impression Primary Impression: Pancreatitis Qualified Codes: K85.10 - Biliary acute pancreatitis without necrosis or infection Additional Impression: Constipation Qualified Codes: K59.09 - Other constipation Disposition: ADMITTED INPATIENT Condition: Critical Departure-Patient Inst. Referrals: [facility] (PCP/Family) Primary Care Physician PAULETTE KAPLAN Mar 28, 2019 13:43 POS
[2019-03-28] MEDS ORDERED: NS IV 1000 ML 1,000 ML IV ONE (13:45)
[2019-03-28] MEDS ORDERED: KETOROLAC 30 MG/ML VIAL IVP ONE (14:00)
[2019-03-28 14:15] LABS: BILIRUBIN,URINE NEGATIVE (NEGATIVE); CLARITY,URINE CLOUDY; COLOR,URINE YELLOW; GLUCOSE, URINE (UA) NEGATIVE (NEGATIVE); KETONES,URINE NEGATIVE (NEGATIVE); LEUKOCYTE ESTERASE ,URINE 3+ (NEGATIVE); NITRITE,URINE NEGATIVE (NEGATIVE); PROTEIN,URINE 1+ (NEGATIVE)
[2019-03-28 14:21] LABS: BASOPHILS % (AUTO) 0 % (0-10); EOSINOPHILS # (AUTO) 0.1 10^3/uL (0.0-0.3); EOSINOPHILS % (AUTO) 1 % (0-10); HEMATOCRIT 38 % (40-54); HEMOGLOBIN 14.1 G/DL (13.3-17.7); LYMPHOCYTES % (AUTO) 27 % (12-44); MEAN CORPUSCULAR HEMOGLOBIN 33 PG (25-34); MEAN CORPUSCULAR HGB CONC 37 G/DL (32-36); MEAN CORPUSCULAR VOLUME 90 FL (80-99); MEAN PLATELET VOLUME 9.1 FL (7.4-10.4); MONOCYTES # (AUTO) 1.1 X 10^3 (0.0-1.0); MONOCYTES % (AUTO) 14 % (0-12); NEUTROPHILS # (AUTO) 4.2 X 10^3 (1.8-7.8); NEUTROPHILS % (AUTO) 57 % (42-75); PLATELET COUNT 230 10^3/uL (130-400); RED CELL DISTRIBUTION WIDTH 11.7 % (10.0-14.5); WHITE BLOOD COUNT 7.4 10^3/uL (4.3-11.0)
[2019-03-28 14:29] LABS: BACTERIA,URINE MODERATE /HPF; RBC,URINE 0-2 /HPF; SQUAMOUS EPITHELIAL CELL,UR 0-2 /HPF; WBC,URINE TNTC /HPF
[2019-03-28] MEDS ORDERED: IOHEXOL 350 MG/ML 100 ML (OMNIPAQUE 350) VIAL IV ONE (14:30)
[2019-03-28] MEDS ORDERED: HOLD METFORMIN - RECEIVED CONTRAST 20 ML VIAL IV SCH (14:30)
[2019-03-28] MEDS ORDERED: NS 100 ML (IVPB) BAG IV ONE (14:30)
[2019-03-28 14:44] LABS: ALANINE AMINOTRANSFERASE 14 U/L (0-55); ALBUMIN 4.2 GM/DL (3.2-4.5); ALKALINE PHOSPHATASE 91 U/L (40-136); BILIRUBIN,TOTAL 0.6 MG/DL (0.1-1.0); BUN/CREATININE RATIO 10; CALCIUM 9.5 MG/DL (8.5-10.1); CARBON DIOXIDE 27 MMOL/L (21-32); CHLORIDE 95 MMOL/L (98-107); CREATININE SERUM 0.68 MG/DL (0.60-1.30); GFR ESTIMATED > 60; GLUCOSE 136 MG/DL (70-105); POTASSIUM 4.5 MMOL/L (3.6-5.0); SODIUM 131 MMOL/L (135-145); TOTAL PROTEIN 7.5 GM/DL (6.4-8.2)
--- NOTE | 2019-03-28 15:20 | Diagnostic Imaging Report ---
PROCEDURE: CT abdomen and pelvis with and without contrast. TECHNIQUE: Precontrast acquisitions were acquired through the abdomen and pelvis. Multiple contiguous axial images were obtained through the abdomen and pelvis after the administration of intravenous contrast. Auto Exposure Controls were utilized during the CT exam to meet ALARA standards for radiation dose reduction. INDICATION: Abdominal and flank pain. COMPARISON: Comparison is made to study of 02/15/2019. FINDINGS: There are multiple nonacute fractures involving the visualized lower ribs. No focal hepatic, gallbladder, or splenic abnormality is identified. There has been development of mild diffuse edema and/or inflammation throughout the pancreas without evidence of organized fluid collection. No adrenal gland or renal abnormality identified. There is no free fluid. There is gaseous distention and dilatation of the transverse colon. There is no evidence of pelvic inflammation. Partially opacified urinary bladder is unremarkable. IMPRESSION: Findings are most suggestive of acute pancreatitis with associated ileus in the transverse colon. There is no evidence of appendicitis, urinary tract obstruction, or other acute abnormality. Dictated by: Dictated on workstation # [id number]
[2019-03-28 15:45] LABS: AMYLASE 29 U/L (25-125); LIPASE 136 U/L (8-78)
[2019-03-28] MEDS ORDERED: FLEET ENEMA ADULT 1 EA BTL PR ONE (15:45)
[2019-03-28] MEDS ORDERED: ONDANSETRON 4 MG/2 ML (SDV) Z0FRAN IV PRN (17:30)
[2019-03-28] MEDS ORDERED: KETOROLAC 30 MG/ML VIAL IV SCH (17:30)
[2019-03-28] MEDS ORDERED: ACETAMINOPHEN 500 MG TAB (TYLENOL) PO PRN (17:30)
--- NOTE | 2019-03-28 17:30 | NUR ---
JAVIER HENLEY JR admitted to room 413-1, with an admitting diagnosis of ILEUS TRANSVERSE COLOR, CONSTIPATION, HEP C, PANCREATITIS, UTI, on 03/28/19 from ED via W/C, accompanied by STAFF. JAVIER HENLEY JR introduced to surroundings, call light, bed controls, phone, TV, temperature control, lights, meal times, smoking policy, visitor policy, side rail policy, bathrooms and showers. Patient Rights given to patient in the handbook. JAVIER HENLEY JR verbalizes understanding that [facility] is not responsible for the loss or damage to any personal effects or valuables that are kept in the patients posession during their hospitalization. The following Patient Care Plans were discussed with the PATIENT: Discharge Planning, PAIN, KNOWLEDGE AND URINARY ELIMINATION. JAVIER HENLEY JR verbalizes understanding of Interdisciplinary Patient Education.
[2019-03-28] MEDS ORDERED: CATHETER FLUSH 10 ML SYR IV PRN (17:45)
[2019-03-28 18:02] VITALS: BP 160/90
--- NOTE | 2019-03-28 18:12 | Consultation - Surgery ---
History of Present Illness History of Present Illness Patient Consulted On(ronnie/time) 03/28/19 18:09 Time Seen by Provider: 17:52 History of Present Illness Surgery asked to consult regarding abdominal pain. HPI per ED: PT CO OF ABD PAIN STATES HAS NOT HAD BM FOR 7 DAYS, STATES HAS USED 4 EMEMAS, 4 BOTTLES OF MAG CITRITE AND STOOL SOFTENERS. CO OF ABD PAIN 01/18 43-year-old gentleman that presents to the emergency Department with complaints of constipation 1 week. Patient reports using several enemas as well as several bottles of magnesium citrate and daily stool softeners without relief. Patient reports being evaluated about 2 months prior for hematuria and having a CT scan of his abdomen at that time. Patient reports that has been several days since he has passed flatus. Patient denies nausea or vomiting. His food and fluid intake has been minimal, he last ate at 1800 yesterday, deer soup. Timing/Duration: 6-7 Days Severity/Quality: Mild Location: LUQ, LLQ Radiation: No Radiation Activities at Onset: None Modifying Factors: Improves With Resting Associated Symptoms: Denies Symptoms When I saw pt this evening he states he has had upper abdominal pain for over a week, went to clinic last week and then came back today; they told him to go to the ER. States nothing has really helped the pain; unsure what makes it worse, sometimes food. He states he usually drinks a couple of beers per day. Pt den ies any previous history of Pancreatitis. Allergies and Home Medications Allergies Coded Allergies: latex (Unverified Allergy, Intermediate, 01/26/19) Haloperidol Lactate (Unverified Allergy, Mild, 01/26/19) chlorpromazine HCl (Unverified Allergy, Mild, 01/26/19) haloperidol (Unverified Allergy, Mild, 01/26/19) Home Medications Albuterol Sulfate 18 Gm Hfa.aer.ad, 2 PUFF INH Q4H PRN for SHORTNESS OF BREATH, (Reported) Amitriptyline HCl 100 Mg Tablet, 100 MG PO HS, (Reported) Cariprazine Hydrochloride 4.5 Mg Capsule, 4.5 MG PO DAILY, (Reported) Divalproex Sodium 500 Mg Tablet.dr, 500 MG PO BID, (Reported) Duloxetine HCl 60 Mg Capsule.dr, 60 MG PO DAILY, (Reported) Lisinopril 20 Mg Tablet, 20 MG PO DAILY, (Reported) Metoprolol Succinate 50 Mg Tab.er.24h, 50 MG PO DAILY, (Reported) Polyethylene Glycol 3350 17 Gm Powd.pack, 17 GM PO BID PRN for CONSTIPATION-2ND LINE, (Reported) Ropinirole HCl 3 Mg Tablet, 3 MG PO 1999, (Reported) Tramadol HCl 50 Mg Tablet, 50 MG PO TID PRN for PAIN-MODERATE, (Reported) Trazodone HCl 100 Mg Tablet, 100 MG PO HS, (Reported) Patient Home Medication List Home Medication List Reviewed: Yes Past Dkghjzf-Izbnzq-Ggvbwi Hx Patient Social History Alcohol Use: Regular Use (12 pack weekly) Drug of Choice: METH, Marijuana, Cocaine Smoking Status: Current Everyday Smoker (2 ppd for 30 years) Type Used: Cigarettes Recent Foreign Travel: No Contact w/Someone Who Travel: No Recent Infectious Disease Expo: No Recent Hopitalizations: Yes Immunizations Up To Date Date of Pneumonia Vaccine: Jan 09, 2019 Date of Influenza Vaccine: Jan 09, 2019 Surgeries History of Surgeries: Yes (RIGHT HAND, amputation right little toe, AMPUTATION RIGHT BIG TOE) Surgeries: Orthopedic (amputation of toes) Respiratory History of Respiratory Disorde: No Cardiovascular History of Cardiac Disorders: Yes Cardiac Disorders: Hypertension Neurological History of Neurological Disord: Yes Neurological Disorders: Headaches /Migraines Reproductive System Hx Reproductive Disorders: No Genitourinary History of Genitourinary Disor: No Gastrointestinal History of Gastrointestinal Di: No Gastrointestinal Disorders: Hepatitis (C) Musculoskeletal History of Musculoskeletal Dis: Yes Endocrine History of Endocrine Disorders: Yes ('was diabetic") HEENT History of HEENT Disorders: No Cancer History of Cancer: No Psychosocial History of Psychiatric Problem: Yes (HISTORY OF INTENTIONAL OVERDOSE IN 2003, AND AGAIN 09/15/18) Behavioral Health Disorders: Suicide Attempts, Bipolar, Schizophrenia, Violent Behavior Integumentary History of Skin or Integumenta: Yes (DIABETIC FOOT ULCER) Blood Transfusions History of Blood Disorders: No Family Medical History Significant Family History: Other Conditions/Hx (Both parents were alcoholic) Family Medial History: AIDS Alcoholism 19 FATHER 19 MOTHER Review of Systems-General Constitutional: diaphoresis, malaise, weakness, weight gain (30lbs in past 2 months) EENTM: No blurred vision, No double vision, No mouth pain, No mouth swelling, No epistaxis, No throat swelling Respiratory: No cough, No dyspnea on exertion, No short of breath Cardiovascular: No chest pain, No edema, No palpitations Gastrointestinal: RUQ, LUQ, abdominal pain, constipation; No jaundice; loss of appetite; No melena; nausea Genitourinary: dysuria, frequency; No hematuria, No incontinence Musculoskeletal: back pain, joint pain, joint swelling, muscle stiffness Skin: No change in color, No change in hair/nails Psychiatric/Neurological: Anxiety, Depressed, Emotional Problems; Denies Seizure, Denies Tremors Other pt denies any hx of abnormal bleeding or bruising Physical Exam-General Problems Physical Exam Vital Signs Vital Signs - First Documented 03/28/19 03/28/19 12:57 18:02 Temp 37.5 Pulse 92 Resp 18 B/P (MAP) 184/105 (131) Pulse Ox 100 O2 Delivery Room Air Capillary Refill : Less Than 3 Seconds General Appearance: no apparent distress, obese Eyes: Bilateral Eye PERRL, Bilateral Eye EOMI HEENT: pharynx normal; No scleral icterus (R), No scleral icterus (L), No pale conjunctivae (R), No pale conjunctivae (L) Neck: non-tender, supple Respiratory: lungs clear, normal breath sounds, no respiratory distress, no accessory muscle use Cardiovascular: regular rate, rhythm, no edema, no murmur Peripheral Pulses: 2+ Dorsalis Pedis (R), 2+ Left Dors-Pedis (L), 2+ Radial Pulses (R), 2+ Radial Pulses (L) Gastrointestinal: normal bowel sounds; No distended, No guarding, No rebound; tenderness (LUQ, LLA, RUQ), hernia (small umbilical hernia), hepatomegaly Extremities: no pedal edema, normal capillary refill, calf tenderness (R) Neurologic/Psychiatric: alert, normal mood/affect, oriented x 3 Skin: normal color, warm/dry, tattoos/piercings Lymphatic: no adenopathy (neck, axilla or groin) Data Review Labs Laboratory Tests 03/28/19 14:05: Urine Color YELLOW, Urine Clarity CLOUDY, Urine pH 8.0, Urine Specific [place] 1.015L, Urine Protein 1+H, Urine Glucose (UA) NEGATIVE, Urine Ketones NEGATIVE, Urine Nitrite NEGATIVE, Urine Bilirubin NEGATIVE, Urine Urobilinogen 1.0, Urine Leukocyte Esterase 3+H, Urine RBC (Auto) TRACE-I, Urine RBC 0-2, Urine WBC TNTCH , Urine Squamous Epithelial Cells 0-2, Urine Crystals NONE, Urine Bacteria MODERATEH, Urine Casts NONE, Urine Mucus NEGATIVE, Urine Culture Indicated YES 03/28/19 14:12: White Blood Count 7.4, Red Blood Count 4.22L, Hemoglobin 14.1, Hematocrit 38L, Mean Corpuscular Volume 90, Mean Corpuscular Hemoglobin 33, Mean Corpuscular Hemoglobin Concent 37H, Red Cell Distribution Width 11.7, Platelet Count 230, Mean Platelet Volume 9.1, Neutrophils (%) (Auto) 57, Lymphocytes (%) (Auto) 27, Monocytes (%) (Auto) 14H, Eosinophils (%) (Auto) 1, Basophils (%) (Auto) 0, Neutrophils # (Auto) 4.2, Lymphocytes # (Auto) 2.0, Monocytes # (Auto) 1.1H, Eosinophils # (Auto) 0.1, Basophils # (Auto) 0.0, Sodium Level 131L, Potassium Level 4.5, Chloride Level 95L, Carbon Dioxide Level 27, Anion Gap 9, Blood Urea Nitrogen 7, Creatinine 0.68, Estimat Glomerular Filtration Rate > 60, BUN/Creatinine Ratio 10, Glucose Level 136H, Calcium Level 9.5, Corrected Calcium 9.3, Total Bilirubin 0.6, Aspartate Amino Transf (AST/SGOT) 18, Alanine Aminotransferase (ALT/SGPT) 14, Alkaline Phosphatase 91, Total Protein 7.5, Albumin 4.2, Amylase Level 29, Lipase 136H Assessment/Plan Assessment/Plan Assessment/Plan Abdominal pain Pancreatitis UTI Hep C Constipation Pt has a lot going on; but not sure which is causing his problems, I suspect it is a little part of everything. He needs to be kept NPO because of the mild pancreatitis and recheck labs. He will be placed on ABX to cover UTI. Pt will need pain control and anti-emetics; need to stay away from Tylenol because of his Hep C. Nothing surgical needed at this time; but will follow along and may need to repeat the US of abdomen if Lipase goes up. Clinical Quality Measures DVT/VTE Risk/Contraindication: Risk Factor Score Per Nursin RFS Level Per Nursing on Admit: 4+=Very High MINH AYALA DO Mar 28, 2019 18:12 LILLIAM ARNOLD MED STUDENT Mar 28, 2019 18:36 POS
--- NOTE | 2019-03-28 18:34 | CONSULTATION REPORT ---
DATE OF SERVICE: 03/28/2019 ATTENDING PHYSICIAN: Erika Bourgeois DO SUMMARY: A 43-year-old man known to me with history of cystitis, hematuria, pain, admitted with ileus and GI problems by Dr. Bourgeois, was consulted because of possibility of urinary tract infection and I recommended to get a UA with culture if indicated until the results of the culture, start the patient on Rocephin gram IV, pending the results of the sensitivity. I also check a bladder scan postvoid residual to make sure he empties well. Last residual at the office was 150 mL. Job ID: [id number] DocumentID: [id number] Dictated Date: 03/28/2019 17:49:57 [employer] Date: 03/28/2019 18:33:46 Dictated By: ERICA CADET MD
[2019-03-28] MEDS: NS IV 1000 ML 1,000 ML IV SCH (19:41)
[2019-03-28] MEDS: cefTRIAXone 1,000 MG/SWFI 10 ML IV PUSH IV SCH ×2 (19:42)
--- NOTE | 2019-03-28 20:00 | NUR ---
DR EDWARDS NOTIFIED THAT PT CONTINUES TO REPORT PAIN AND APPEARED TO BE ANXIOUS. DR EDWARDS CALLED THIS [facility]SE [facility] AND SAID THAT SHE IS UNABLE TO PRESCRIBE ANY NARCOTICS TO PT D/T HIS PAST ADDICTION PROBLEMS THAT HE REPORTED IN ER TODAY. SHE DID ORDER BENADRYL 25 MG IVP Q 4 HR PRN ANXIETY.
[2019-03-28] MEDS ORDERED: diphenhydrAMINE 50 MG/ML INJ (BENADRYL) ONE (20:01)
[2019-03-28] MEDS: diphenhydrAMINE 50 MG/ML INJ (BENADRYL) IVP PRN ×2 (20:07→23:41)
[2019-03-28] MEDS: NICOTINE 21 MG (NICODERM) PATCH TD SCH (20:34)
[2019-03-28 20:38] VITALS: BP 160/88
[2019-03-28] MEDS: KETOROLAC 30 MG/ML VIAL IV SCH (21:43)
[2019-03-28 23:45] VITALS: BP 170/82
[2019-03-29] MEDS: NS IV 1000 ML 1,000 ML IV SCH ×4 (00:59→20:16)
--- NOTE | 2019-03-29 02:35 | NUR ---
THIS NURSE COUNT TEAM MEMBER CONTACTED BALLISTICS TEACHER, KASH AT THIS TIME REGARDING PT'S INCREASED AGITATION REGARDING PAIN AND NOT RECEIVING STRONGER PAIN MEDS. THIS NURSE COUNT TEAM MEMBER HAD REMINDED HIM OF PRIOR ADDICTIONS AND THAT DR EDWARDS HAD REPORTED TO THIS RN THAT SHE WOULD NOT ORDER NARCOTICS. PT STARTED RAISING VOICE AND CURSING AT NURSE RE PAIN. AT THAT TIME HE WAS SITTING ON SIDE OF BED AND SAID THAT HIS LEFT SIDE HURT. HE WAS REMINDED BY THIS RN THAT HE HAD RECEIVED TORADOL AND THAT IT IS A STRONG ANTI INFLAMMATORY. HE TOLD THIS NURSE THAT 'BEER WOULD HELP HIS PAIN'. THIS NURSE REMINDED HIM THAT WE ARE TREATING HIS ILLNESS AND WANT HIS HEALTH TO IMPROVE. KASH WAS CONTACTED AND CAME DOWN AND TALKED TO PT WELL. KASH SUGGESTED A WARM BLANKET AND TO SWAB HIS MOUTH D/T NPO STATUS. PT APPEARED TO BE CALMER AFTER SPEAKING TO KASH.
[2019-03-29] MEDS: diphenhydrAMINE 50 MG/ML INJ (BENADRYL) IVP PRN ×2 (03:05→06:42)
[2019-03-29 04:38] VITALS: BP 180/90
--- NOTE | 2019-03-29 04:43 | NUR ---
PT'S BP HAS BEEN ELEVATED THRU THE NIGHT. HE DOES REPORT HISTORY OF HTN. BP TAKEN AT 0440 MANUALLY BY THIS RN READING 180/90. PT STATES HE TOLD ME HE WAS IN PAIN AND THEREFORE HIS BP IS ELEVATED. THIS RN CONTACTED YARD OPERATOR, KASH, ABOUT POSSIBLY CONTACTING DR EDWARDS ABOUT ELEVATED BP OR TO WAIT AND TAKE BP MANUALLY AGAIN AFTER HE RECEIVES HIS TORADOL 30 MG IV AT 0500. KASH RECOMMENDED TO ADMIN TORADOL AT 0500 THEN TAKE BP AFTER IT HAS TAKEN AFFECT.
[2019-03-29] MEDS: KETOROLAC 30 MG/ML VIAL IV SCH ×2 (05:08→14:14)
[2019-03-29] MEDS: cefTRIAXone 1,000 MG/SWFI 10 ML IV PUSH IV SCH ×4 (05:27→18:08)
[2019-03-29 05:30] VITALS: BP 122/82
[2019-03-29 06:34] LABS: BASOPHILS % (AUTO) 0 % (0-10); EOSINOPHILS # (AUTO) 0.1 10^3/uL (0.0-0.3); EOSINOPHILS % (AUTO) 2 % (0-10); HEMATOCRIT 37 % (40-54); HEMOGLOBIN 13.5 G/DL (13.3-17.7); LYMPHOCYTES # (AUTO) 1.2 X 10^3 (1.0-4.0); LYMPHOCYTES % (AUTO) 19 % (12-44); MEAN CORPUSCULAR HEMOGLOBIN 33 PG (25-34); MEAN CORPUSCULAR HGB CONC 37 G/DL (32-36); MEAN CORPUSCULAR VOLUME 91 FL (80-99); MEAN PLATELET VOLUME 9.6 FL (7.4-10.4); MONOCYTES # (AUTO) 0.9 X 10^3 (0.0-1.0); MONOCYTES % (AUTO) 14 % (0-12); NEUTROPHILS # (AUTO) 4.2 X 10^3 (1.8-7.8); NEUTROPHILS % (AUTO) 65 % (42-75); PLATELET COUNT 203 10^3/uL (130-400); RED CELL DISTRIBUTION WIDTH 11.6 % (10.0-14.5); WHITE BLOOD COUNT 6.5 10^3/uL (4.3-11.0)
[2019-03-29 07:00] LABS: ALANINE AMINOTRANSFERASE 13 U/L (0-55); ALBUMIN 3.8 GM/DL (3.2-4.5); ALKALINE PHOSPHATASE 88 U/L (40-136); AMYLASE 21 U/L (25-125); BILIRUBIN,TOTAL 0.6 MG/DL (0.1-1.0); BUN/CREATININE RATIO 11; CALCIUM 9.2 MG/DL (8.5-10.1); CARBON DIOXIDE 20 MMOL/L (21-32); CHLORIDE 99 MMOL/L (98-107); CREATININE SERUM 0.65 MG/DL (0.60-1.30); GFR ESTIMATED > 60; GLUCOSE 134 MG/DL (70-105); LIPASE 104 U/L (8-78); POTASSIUM 4.1 MMOL/L (3.6-5.0); SODIUM 133 MMOL/L (135-145); TOTAL PROTEIN 6.9 GM/DL (6.4-8.2)
[2019-03-29 08:00] VITALS: BP 184/98
--- NOTE | 2019-03-29 08:20 | Progress Note - Hospitalist ---
LILLIAM SIDHU MED STUDENT 03/29/19 0820: Subjective HPI/CC On Admission Date Seen by Provider: Mar 29, 2019 Time Seen by Provider: 08:05 Subjective/Events-last exam When seen today Mr. Ramirez was angry because he is NPO and because he has not received any pain medication stronger than Toradol for his abdominal pain, which he reports has worsened. He explained that he has not used drugs for 8 months, and doesn't understand why he can't use medication like morphine for pain management, as he had been given morphine and hydrocodone for his toe amputation in January. He didn't want to talk to me or allow me to do a PE unless he received stronger pain medication. CT yesterday was suggestive of acute pancreatitis with associated ileus in the transverse colon. Today his amylase decreased to 21, which is low, and his lipase decreased to 104, which is still high. Review of Systems Gastrointestinal: Abdominal Pain, Constipation Objective Exam Vital Signs Vital Signs Date Time Temp Pulse Resp B/P (MAP) Pulse Ox O2 Delivery O2 Flow Rate FiO2 03/29/19 05:30 122/82 (95) 03/29/19 05:23 36.8 96 18 95 Room Air Capillary Refill : Less Than 3 Seconds Results/Procedures Lab Laboratory Tests 03/28/19 14:12 03/29/19 05:38 Patient resulted labs reviewed. Assessment/Plan Assessment and Plan Assess & Plan/Chief Complaint Abdominal pain Constipation Dysuria Pancreatitis Hep C Pancreatic enzymes have decreased, he is still in pain. Continue as NPO, continue Toradol and Ondensetron. Clinical Quality Measures DVT/VTE Risk/Contraindication: Risk Factor Score Per Nursin RFS Level Per Nursing on Admit: 4+=Very High DAMEON AYALA DO 03/29/19 1312: Subjective HPI/CC On Admission Time Seen by Provider: 13:01 Subjective/Events-last exam Pt seen and examined, complaints of Left back and flank pain. He is also hungry and wondering if he can eat. Review of Systems General: Fatigue Cardiovascular: No: Chest Pain, Palpitations Genitourinary: Dysuria Objective Exam General Appearance: No Apparent Distress, WD/WN HEENT: PERRL/EOMI Respiratory: Lungs Clear, Normal Breath Sounds, No Accessory Muscle Use Cardiovascular: Regular Rate, Rhythm, No Murmur Gastrointestinal: Normal Bowel Sounds, Soft; No Distended, No Guarding; Hepatomegaly, Tenderness (left side) Neurologic/Psychiatric: Alert, Oriented x3 Skin: Normal Color, Warm/Dry Assessment/Plan Assessment and Plan Assess & Plan/Chief Complaint Pancreatic enzymes have gone down, will try clears and as long as eating does not make his pain worse; plan to increase slowly. Still no surgical intervent ion needed, pain control. Continue to check labs. Supervisory-Addendum Brief Verification & Attestation Participated in pt care: history, MDM, physical Personally performed: exam, history, MDM Care discussed with: Medical Student Procedures: n/a Verification and Attestation of Medical Student E/M Service A medical student performed and documented this service in my presence. I reviewed and verified all information documented by the medical student and made modifications to such information, when appropriate. I personally performed the physical exam and medical decision making. Dameon Ayala, Mar 29, 2019,13:12 LILLIAM SIDHU MED STUDENT Mar 29, 2019 08:20 DAMEON ENG DO Mar 29, 2019 13:12 POS
--- NOTE | 2019-03-29 08:27 | NUR ---
PT'S B/PS HAVE BEEN RUNNING HIGH -- ADVISED DR CALI THAT B/P THIS AM 184/92
[2019-03-29] MEDS: NICOTINE 21 MG (NICODERM) PATCH TD SCH (09:00)
[2019-03-29] MEDS: NICOTINE PATCH REMOVAL TP SCH (09:39)
[2019-03-29] MEDS ORDERED: LEDI1TAB PO (10:18)
--- NOTE | 2019-03-29 10:21 | NUR ---
PATIENT HAD A LIST OF MEDICATIONS. I COMPARED THAT LIST WITH THE EXT MED HX. IN ADDITION TO THAT LIST HE IS CURRENTLY FINISHING A HARVONI THERAPY, HE FILLED #28 03-10-19. HE ALSO TAKES TRAMADOL AND VENTOLIN NEEDED. HE IS NO LONGER TAKING THE RANITIDINE 150MG ON HIS LIST HE FILLED #180 12-27-18 - HE STATES HE STOPPED THIS BECAUSE HE HEARD BAD THINGS ABOUT IT. HE FILLED A 30 DAY SUPPLY OF NITROFURANTOIN AND FLOMAX MID FEBRUARY BUT STATES THAT WAS A ONE MONTH THERAPY AND HE IS FINISHED WITH THEM. HE HAS TAKEN SEVERAL OTC MEDICATIONS FOR CONSTIPATION RECENTLY BUT DOES NOT NORMALLY TAKE ANYTHING OTC.
--- NOTE | 2019-03-29 11:34 | History & Physical-Hospitalist ---
History of Present Illness HPI/Chief Complaint Pt is a 43yoCM with a PMH of Hepatitis C and substance abuse clean x 7 months who presented to the ER due to abdominal pain and constipation. He states he has been constipated for 1 week and tried stool softeners and mag citrate without any relief. He began to get worsening pain and decided to seek evaluation in the ER. CT Abdomen was done and revealed pancreatitis and transverse colon ileus and he was admitted. Last night he was able to have a BM in the ER and his symptoms improved. This morning he states that his pain is back and is across his abdomen to his left side and goes to his back. He had previously declined any opiate medication due to his history of substance abuse but is now requesting pain medicine for his abdominal pain. He also is requesting to eat. Source: patient Date Seen 03/29/19 Time Seen by a Provider: 11:08 Attending Physician Erika Bourgeois DO [facility] Referring Physician Date of Admission Mar 28, 2019 at 16:05 Home Medications & Allergies Home Medications Reviewed patient Home Medication Reconciliation performed by pharmacy medication reconciliations hydro plant technician and/or nursing. Patients Allergies have been reviewed. Allergies Allergies Coded Allergies latex (Unverified Allergy, Intermediate, 01/26/19) Haloperidol Lactate (Unverified Allergy, Mild, 01/26/19) chlorpromazine HCl (Unverified Allergy, Mild, 01/26/19) haloperidol (Unverified Allergy, Mild, 01/26/19) Past Ubksyew-Duopiv-Pivhse Hx Past Med/Social Hx: Reviewed Nursing Past Med/Soc Hx Patient Social History Alcohol Use: Regular Use (12 pack weekly) Alcohol Beverage of Choice: Beer Recreational Drug Use: No (clean x7 months) Drug of Choice: history of METH, Marijuana, Cocaine Smoking Status: Current Everyday Smoker (2 ppd for 30 years) Type Used: Cigarettes Recent Foreign Travel: No Contact w/other who traveled: No Recent Hopitalizations: Yes Recent Infectious Disease Expo: No Immunizations Up To Date Date of Pneumonia Vaccine: Jan 09, 2019 Date of Influenza Vaccine: Jan 09, 2019 Past Medical History Surgeries: Orthopedic (amputation of toes) Currently Using CPAP: No Currently Using BIPAP: No Cardiac: Hypertension Neurological: Headaches /Migraines Reproductive: No Gastrointestinal: Hepatitis (C) Psychosocial: Suicide Attempts, Bipolar, Schizophrenia, Violent Behavior History of Blood Disorders: No Family History Reviewed Nursing Family Hx AIDS Alcoholism 19 FATHER 19 MOTHER Other Conditions/Hx (Both parents were alcoholic) Review of Systems Constitutional: no symptoms reported EENTM: no symptoms reported Respiratory: no symptoms reported Cardiovascular: no symptoms reported Gastrointestinal: abdominal pain, constipation; No diarrhea; nausea Genitourinary: no symptoms reported Musculoskeletal: no symptoms reported Skin: no symptoms reported Psychiatric/Neurological: No Symptoms Reported Physical Exam Physical Exam Vital Signs Vital Signs - First Documented 03/28/19 03/28/19 12:57 18:00 Temp 37.5 Pulse 92 Resp 18 B/P (MAP) 184/105 (131) Pulse Ox 100 O2 Delivery Room Air Capillary Refill : Less Than 3 Seconds Height, Weight, BMI Height: 5'10.00" Weight: 258lbs. 6.1oz. [id number]; 38.59 BMI Method:Stated General Appearance: No Apparent Distress, WD/WN, Obese HEENT: Moist Mucous Membranes; No Scleral Icterus (L), No Scleral Icterus (R) Neck: Supple; No Thyromegaly Respiratory: Lungs Clear, No Respiratory Distress Cardiovascular: Regular Rate, Rhythm, No Murmur Gastrointestinal: Normal Bowel Sounds, Soft; No Distended; Guarding; No Rebound; Tenderness (mild diffuse) Extremity: No Calf Tenderness, No Pedal Edema Neurologic/Psychiatric: Alert, Oriented x3, Other (tearful during exam) Results Results/Procedures Labs Laboratory Tests 03/28/19 14:12 03/29/19 05:38 Patient resulted labs reviewed. Imaging: Reviewed Imaging Report Assessment/Plan Admission Diagnosis transverse colon ileus pancreatitis Admission Status: Inpatient Order (span 2 midnights) Reason for Inpatient Admission: pancreatitis, npo, ileus, will take more than 2 days to stabilize for DC Assessment and Plan Transverse Colon Ileus Pancreatitis Surgery consulted, appreciate recs NPO Had BM last night Will add low dose morphine as has previously tolerated this Hepatitis C History of Substance Abuse On Harvoni as an outpatient Resume when able to take PO UTI History of recurrent UTIs- follow with Dr Victor, urology Continue [facility] Urology consulted, appreciate recs HTN Will add Lopressor while NPO Resume home meds when able to PO NIDDMII Diet controlled SSI Diagnosis/Problems Diagnosis/Problems (1) Hepatitis C Status: Chronic Qualifiers: Viral hepatitis chronicity: chronic Hepatic coma status: without hepatic coma Qualified Codes: B18.2 - Chronic viral hepatitis C (2) Substance abuse in remission Status: Acute (3) Ileus Status: Acute (4) Non-insulin dependent type 2 diabetes mellitus Status: Chronic (5) Essential (primary) hypertension Status: Chronic (6) Pancreatitis Status: Acute Qualifiers: Chronicity: acute Pancreatitis type: biliary Acute pancreatitis complication: unspecified Qualified Codes: K85.10 - Biliary acute pancreatitis without necrosis or infection (7) Constipation Status: Acute Qualifiers: Constipation type: other constipation type Qualified Codes: K59.09 - Other constipation Clinical Quality Measures DVT/VTE Risk/Contraindication: Risk Factor Score Per Nursin RFS Level Per Nursing on Admit: 4+=Very High LORRI CALI MD Mar 29, 2019 11:33 POS
--- NOTE | 2019-03-29 11:35 | Progress Note - Urology ---
Progress Note-Urology Progress Notes/Assess & Plan Progress/Assessment & Plan UA + CULTURE PENDING. BC - Final Diagnosis UTI ERICA CADET MD Mar 29, 2019 11:35 POS
[2019-03-29] MEDS: morphine INJ 4 MG/ML 1 ML (VIAL/SYRINGE) IVP PRN ×6 (11:47→22:21)
[2019-03-29 12:00] VITALS: BP 205/105
--- NOTE | 2019-03-29 12:56 | NUR ---
RD ASSESSMENT PMHx: HTN; DM ("was diabetic"); amputation (toe 01/27) PT INTERACTION: Pt was awake and semi-pleasant during nutrition assessment. Pt states that he is currently very hungry and his appetite was good prior to admit. Pt states following a regular diet at home, and currently has no issues with chewing/swallowing food. Pt states no recent issues with n/v at this time. Pt states some recent issues with constipation which lasted more than a week and states he had a BM 03/28. Note pt not currently on bowel regimen, per chart review. Pt states no recent wt changes. Note 18# wt gain x6w, per chart review. ABNORMAL NUTRITION-RELATED LAB VALUES: Na 133 (L); amylase 21 (L); glu 134 (H); lipase 104 (H) Est. kcal needs: 4302-8519 kcal | 15-18 kcal/kg Est. Pro needs: 98-122 g Pro | 0.8-1.0 g Pro/kg PES STATEMENT: Inadequate oral intake (NI-2.1) related to constipation | NPO status as evidenced by pt interview INTERVENTION: Pt currently on NPO status. Advance diet to Clear Liquid, when medically able. Will continue to follow and reassess as pt needs and status change. MONITOR/EVALUATE: PO Intake; Plan of Care; Hydration Status; Weight Status; Lab Values Vonnie Harris, , RD, LD
--- NOTE | 2019-03-29 13:20 | NUR ---
Pastoral care visit.
[2019-03-29] MEDS: meTOprolol 5 MG/5 ML (LOPRESSOR) VIAL IV SCH ×2 (13:55→18:08)
--- NOTE | 2019-03-29 14:14 | NUR ---
IV TORADOL BEING CHANGED TO PRN
[2019-03-29] MEDS ORDERED: KETOROLAC 30 MG/ML VIAL IV PRN (14:45)
[2019-03-29 16:00] VITALS: BP 185/111
[2019-03-29] MEDS: inSUlin ASPART (NovoLOG) 1 UNIT/0.01 ML (CHARGE PER UNIT) SC SCH ×2 (16:54→21:14)
[2019-03-29] MEDS ORDERED: PATIENT MAY USE OWN MED,SINGLE MED PO SCH (19:15)
[2019-03-29 20:00] VITALS: BP 199/114
[2019-03-29] MEDS ORDERED: HARVONI PO SCH (21:00)
[2019-03-29] MEDS ORDERED: meTOproloL SUCCINATE 50 MG (TOPROL XL) TAB PO SCH (21:45)
[2019-03-29] MEDS ORDERED: lisINopril 20 MG (PRINIVIL) TABLET PO ONE (21:45)
[2019-03-30 00:10] VITALS: BP 180/100
[2019-03-30] MEDS: morphine INJ 4 MG/ML 1 ML (VIAL/SYRINGE) IVP PRN ×3 (00:47→05:06)
[2019-03-30] MEDS: NS IV 1000 ML 1,000 ML IV SCH ×2 (03:04→10:57)
[2019-03-30] MEDS: cefTRIAXone 1,000 MG/SWFI 10 ML IV PUSH IV SCH ×2 (05:06)
--- NOTE | 2019-03-30 05:09 | NUR ---
PATIENT PUSHED CALL LIGHT AND ASKED FOR PRN PAIN MEDICINE. WHEN THIS NURSE WHEN TO LEAVE THE ROOM PATIENT YELLED PUT "I DON'T WANT THAT TORADOL I WANT THE MORPHINE". IT IS TOO EARLY TO GIVE TORADOL BUT THIS NURSE ATTEMPTED TO EXPLAIN TO PATIENT THE MECHANISM OF ACTION OF THE TORADOL. PATIENT CONTINUES TO STATE HE ONLY WANTS MORPHINE. PATIENT ALSO STATED THAT HE WILL BE ASKING THE DOCTOR FOR SOMETHING STRONGER WHEN HE SEES THE DOCTOR TODAY.
[2019-03-30 05:14] VITALS: BP 178/96
[2019-03-30 05:17] LABS: HEMOGLOBIN 13.6 G/DL (13.3-17.7); RED CELL DISTRIBUTION WIDTH 11.9 % (10.0-14.5); WHITE BLOOD COUNT 5.9 10^3/uL (4.3-11.0)
[2019-03-30 05:45] LABS: BUN/CREATININE RATIO 8; CALCIUM 9.3 MG/DL (8.5-10.1); CARBON DIOXIDE 21 MMOL/L (21-32); CHLORIDE 103 MMOL/L (98-107); CREATININE SERUM 0.62 MG/DL (0.60-1.30); GFR ESTIMATED > 60; GLUCOSE 126 MG/DL (70-105); LIPASE 77 U/L (8-78); POTASSIUM 3.9 MMOL/L (3.6-5.0); SODIUM 135 MMOL/L (135-145)
[2019-03-30] MEDS: inSUlin ASPART (NovoLOG) 1 UNIT/0.01 ML (CHARGE PER UNIT) SC SCH ×2 (05:58→11:25)
--- NOTE | 2019-03-30 07:31 | Progress Note - Surgery ---
LILLIAM SIDHU MED STUDENT 03/30/19 0731: Subjective Date Seen by a Provider: Mar 30, 2019 Time Seen by a Provider: 07:10 Subjective/Events-last exam Mr. Ramirez reports feeling much better since yesterday, is interested in going home. He apologized for being agitated yesterday morning. The pain on L side is 5/10, lipase is 77. He still has not had a BM, reports having an enema on 03/28 that produced some stool for him. Review of Systems General: No Chills, No Fatigue HEENT: No Head Aches, No Sinus Congestion, No Sore Throat Pulmonary: No Dyspnea, No Cough Cardiovascular: No: Chest Pain, Palpitations, Lt Headedness Gastrointestinal: Abdominal Pain, Constipation; No: Nausea Genitourinary: No Dysuria; Frequency Neurological: Numbness (R foot neuropathy, constant), Other (denies paresthesias) Objective Exam Vital Signs Date Time Temp Pulse Resp B/P (MAP) Pulse Ox O2 Delivery O2 Flow Rate FiO2 03/30/19 05:14 36.8 76 20 178/96 (123) 98 Room Air 03/30/19 00:10 36.1 81 18 180/100 (126) 98 Room Air 03/29/19 20:00 Room Air 03/29/19 20:00 37.6 97 18 199/114 (142) 96 Room Air 03/29/19 18:39 37.1 03/29/19 18:08 37.1 03/29/19 16:00 37.1 102 20 185/111 (135) 100 Room Air 03/29/19 14:04 37.5 03/29/19 12:00 37.5 106 20 205/105 (138) 100 Room Air 03/29/19 08:00 Room Air 03/29/19 08:00 37.0 98 20 184/98 (126) 98 Room Air I & O 03/30/19 07:00 Intake Total 4828 ml Output Total 5700 ml Balance -872 ml Capillary Refill : Less Than 3 Seconds General Appearance: No Apparent Distress, Obese HEENT: PERRL/EOMI Neck: Non Tender, Supple; No Thyromegaly Respiratory: Lungs Clear, Normal Breath Sounds, No Accessory Muscle Use, No Respiratory Distress Cardiovascular: Regular Rate, Rhythm, No Murmur Peripheral Pulses: 2+ Dorsalis Pedis (R), 2+ Left Dors-Pedis (L) Gastrointestinal: normal bowel sounds, soft; No guarding, No tenderness (reports LUQ pain, but none on palpation) Extremity: No Calf Tenderness, No Pedal Edema Neurologic/Psychiatric: Alert, Oriented x3 Skin: Normal Color, Warm/Dry, Tattoos/Piercings Lymphatic: No Adenopathy Results Lab Laboratory Tests 03/29/19 16:19: Glucometer 191H 03/29/19 20:47: Glucometer 175H 03/30/19 04:25: White Blood Count 5.9, Red Blood Count 4.16L, Hemoglobin 13.6, Hematocrit 38L, Mean Corpuscular Volume 92, Mean Corpuscular Hemoglobin 33, Mean Corpuscular Hemoglobin Concent 36, Red Cell Distribution Width 11.9, Platelet Count 226, Mean Platelet Volume 9.0, Sodium Level 135, Potassium Level 3.9, Chloride Level 103, Carbon Dioxide Level 21, Anion Gap 11, Blood Urea Nitrogen 5L, Creatinine 0.62, Estimat Glomerular Filtration Rate > 60, BUN/Creatinine Ratio 8, Glucose Level 126H, Calcium Level 9.3, Lipase 77 Microbiology 03/28/19 Urine Culture - Preliminary, Resulted Gram Negative Kirit Assessment/Plan Assessment/Plan Assessment/Plan Pancreatitis Constipation UTI Hep C Abdominal pain is improving and lipase is 77, consider regular diet. Continue Toradol and Ondansetron. Clinical Quality Measures DVT/VTE Risk/Contraindication: Risk Factor Score Per Nursin RFS Level Per Nursing on Admit: 4+=Very High DAMEON AYALA DO 03/30/19 1320: Subjective Time Seen by a Provider: 13:12 Subjective/Events-last exam Pt seen and examined, states pain is almost gone. He is ready to go home. Assessment/Plan Assessment/Plan Assessment/Plan Abdominal pain is improving, agree with sending him home. I can see him as an outpt. May benefit from US as outpt. Supervisory-Addendum Brief Verification & Attestation Participated in pt care: history, MDM, physical Personally performed: exam, history, MDM Care discussed with: Medical Student Procedures: n/a Verification and Attestation of Medical Student E/M Service A medical student performed and documented this service in my presence. I reviewed and verified all information documented by the medical student and made modifications to such information, when appropriate. I personally performed the physical exam and medical decision making. Dameon Ayala, Mar 30, 2019,13:20 LILLIAM SIDHU MED STUDENT Mar 30, 2019 07:31 DAMEON ENG DO Mar 30, 2019 13:20 POS
[2019-03-30] MEDS: NICOTINE PATCH REMOVAL TP SCH (07:44)
[2019-03-30] MEDS: NICOTINE 21 MG (NICODERM) PATCH TD SCH (07:52)
[2019-03-30 08:00] VITALS: BP 163/110
[2019-03-30] MEDS ORDERED: LEDIPASVIR PO SCH (09:00)
[2019-03-30] MEDS ORDERED: DULoxetine 30 MG (CYMBALTA) CAP PO SCH (09:00)
[2019-03-30] MEDS ORDERED: CARIPRAZINE HYDROCHLORIDE 4.5 MG PO SCH (09:00)
[2019-03-30] MEDS ORDERED: meTOproloL SUCCINATE 50 MG (TOPROL XL) TAB PO SCH (09:00)
[2019-03-30] MEDS ORDERED: DIVALPROEX 500 MG DELAYED RELEASE (DEPAKOTE) TAB PO SCH (09:00)
[2019-03-30] MEDS ORDERED: SOFOSBUVIR PO SCH (09:00)
[2019-03-30] MEDS ORDERED: lisINopril 20 MG (PRINIVIL) TABLET PO SCH (09:00)
[2019-03-30] MEDS ORDERED: [UNRECOGNIZED DRUG - OTHER] PO SCH (09:00)
[2019-03-30] MEDS ORDERED: CEPH-507 PO (10:22)
--- NOTE | 2019-03-30 10:48 | Discharge Inst-Simple/Standard ---
Discharge Inst-Standard Reconcile Patient Problems Problems Reviewed?: Yes Discharge Medications New, Converted or Re-Newed RX: Transmitted to Pharmacy Patient Instructions/Follow Up Plan of Care/Instructions/FU: Please continue to take your medications as written. Please follow up with your PCP Dr Nazario in the next week to follow up this hospital stay. Activity as Tolerated: Yes Discharge Diet: Other Diet ([place] food) Return to The Hospital For: Abdominal Pain, nausea or vomiting, if you stop passing gas or have no BM for >48, if you feel you are getting worse. LORRI CALI MD Mar 30, 2019 10:48 POS
--- NOTE | 2019-03-30 10:50 | Discharge Summary ---
Diagnosis/Chief Complaint Date of Admission Mar 28, 2019 at 16:05 Date of Discharge Discharge Date: Mar 30, 2019 Admission Diagnosis transverse colon ileus pancreatitis [facility] Discharge Diagnosis (1) Hepatitis C Status: Chronic (2) Substance abuse in remission Status: Acute (3) Ileus Status: Acute (4) Non-insulin dependent type 2 diabetes mellitus Status: Chronic (5) Essential (primary) hypertension Status: Chronic (6) Pancreatitis Status: Acute (7) Constipation Status: Acute Discharge Summary Discharge Physical Exam Allergies: Coded Allergies: latex (Unverified Allergy, Intermediate, 01/26/19) Haloperidol Lactate (Unverified Allergy, Mild, 01/26/19) chlorpromazine HCl (Unverified Allergy, Mild, 01/26/19) haloperidol (Unverified Allergy, Mild, 01/26/19) Vitals & I&Os Vital Signs Date Time Temp Pulse Resp B/P (MAP) Pulse Ox O2 Delivery O2 Flow Rate FiO2 03/30/19 08:00 36.2 75 20 163/110 (127) 98 Room Air Hospital Course Labs (last 24 hrs) Laboratory Tests 03/29/19 16:19: Glucometer 191H 03/29/19 20:47: Glucometer 175H 03/30/19 04:25: White Blood Count 5.9, Red Blood Count 4.16L, Hemoglobin 13.6, Hematocrit 38L, Mean Corpuscular Volume 92, Mean Corpuscular Hemoglobin 33, Mean Corpuscular H emoglobin Concent 36, Red Cell Distribution Width 11.9, Platelet Count 226, Mean Platelet Volume 9.0, Sodium Level 135, Potassium Level 3.9, Chloride Level 103, Carbon Dioxide Level 21, Anion Gap 11, Blood Urea Nitrogen 5L, Creatinine 0.62, Estimat Glomerular Filtration Rate > 60, BUN/Creatinine Ratio 8, Glucose Level 126H, Calcium Level 9.3, Lipase 77 Microbiology 03/28/19 Urine Culture - Preliminary, Resulted Gram Negative Kirit Patient resulted labs reviewed. Pending Labs Laboratory Tests 03/30/19 04:25: White Blood Count 5.9, Red Blood Count 4.16, Hemoglobin 13.6, Hematocrit 38, Mean Corpuscular Volume 92, Mean Corpuscular Hemoglobin 33, Mean Corpuscular Hemoglobin Concent 36, Red Cell Distribution Width 11.9, Platelet Count 226, Mean Platelet Volume 9.0, Sodium Level 135, Potassium Level 3.9, Chloride Level 103, Carbon Dioxide Level 21, Anion Gap 11, Blood Urea Nitrogen 5, Creatinine 0.62, Estimat Glomerular Filtration Rate > 60, BUN/Creatinine Ratio 8, Glucose Level 126, Calcium Level 9.3, Lipase 77 Imaging: Reviewed Imaging Report Discharge Home Medications: Active Scripts Active Keflex (Cephalexin) 500 Mg Capsule 500 Mg PO BID Reported Harvoni 90-400 mg Tablet (Ledipasvir/Sofosbuvir) 1 Each Tablet 1 Tab PO DAILY FILLED #28 03-10-19 Vraylar (Cariprazine Hydrochloride) 4.5 Mg Capsule 4.5 Mg PO DAILY Amitriptyline HCl 100 Mg Tablet 100 Mg PO HS Tramadol HCl 50 Mg Tablet 50 Mg PO TID PRN Trazodone HCl 100 Mg Tablet 100 Mg PO HS Ventolin Hfa (Albuterol Sulfate) 18 Gm Hfa.aer.ad 2 Puff INH Q4H PRN Lisinopril 20 Mg Tablet 20 Mg PO DAILY Ropinirole HCl 3 Mg Tablet 3 Mg PO 2000 Metoprolol Succinate 50 Mg Tab.er.24h 50 Mg PO DAILY Divalproex Sodium 500 Mg Tablet.dr 500 Mg PO BID Duloxetine HCl 60 Mg Capsule.dr 60 Mg PO DAILY Instructions to patient/family Please see electronic discharge instructions given to patient. Clinical Quality Measures DVT/VTE Risk/Contraindication: Risk Factor Score Per Nursin RFS Level Per Nursing on Admit: 4+=Very High Problem Qualifiers (1) Hepatitis C: Viral hepatitis chronicity: chronic Hepatic coma status: without hepatic coma Qualified Codes: B18.2 - Chronic viral hepatitis C (2) Pancreatitis: Chronicity: acute Pancreatitis type: biliary Acute pancreatitis complication: unspecified Qualified Codes: K85.10 - Biliary acute pancreatitis without necrosis or infection (3) Constipation: Constipation type: other constipation type Qualified Codes: K59.09 - Other constipation LORRI CALI MD Mar 30, 2019 10:50 POS
--- NOTE | 2019-03-30 11:38 | Progress Note - Urology ---
Progress Note-Urology Progress Notes/Assess & Plan Progress/Assessment & Plan AFEBRILE, VSS. URINE CULTURE REVIEWED AND SENSITIVE TO ROCEPHIN. SLEEPING COMFORTABLY. OK TO DISMISS REYNOLDS Final Diagnosis UTI ERICA CADET MD Mar 30, 2019 11:38 POS
[2019-03-30 12:00] VITALS: BP 183/101
[2019-03-30 14:27] VITALS: BP 183/101
[2019-03-30] MEDS ORDERED: rOPINIRole 1 MG (REQUIP) TABLET PO SCH (20:00)
[2019-03-30] MEDS ORDERED: traZODone 100 MG (DESYREL) TAB PO SCH (21:00)
[2019-03-30] MEDS ORDERED: AMITRIPTYLINE 50 MG (ELAVIL) TAB PO SCH (21:00)
== END 2019-03-30 14:31 | disposition home or self-care (01) | DRG 388 ==
LOC: EDUNIT# 12:32 → ER 12:32 → 4TH 16:05 → UNDOADMOB 16:05 → 4TH 17:30 → INTOOBSV 03-29 11:30 → OBSVTOIN 03-29 11:30 → 4TH 03-30 11:28 → UNDODISOB 03-30 14:31
PROVIDERS: ADMIT Internal Medicine; ATTEND Internal Medicine
DX: K56.7 Ileus, unspecified (principal); K85.90 Acute pancreatitis without necrosis or infection, unspecified; N39.0 Urinary tract infection, site not specified; K59.00 Constipation, unspecified; B18.2 Chronic viral hepatitis C; F17.210 Nicotine dependence, cigarettes, uncomplicated; I10 Essential (primary) hypertension; E11.9 Type 2 diabetes mellitus without complications; F31.9 Bipolar disorder, unspecified; F20.9 Schizophrenia, unspecified; F15.11 Other stimulant abuse, in remission; F14.11 Cocaine abuse, in remission; Z89.421 Acquired absence of other right toe(s); Z89.411 Acquired absence of right great toe
CPT/HCPCS: 36415; 74178; 80048; 80053; 81000; 82150; 82962; 83690; 85025; 85027; 87077; 87088; 87186; 96361; 96374; G0378

== ENCOUNTER → 2019-05-09 | Outpatient (CLI) | payer MEDICARE, MEDICAID ==
[~2019-05-09] MED LIST changes: +LEDI1TAB PO
== END ==
LOC: LAB 11:04
PROVIDERS: ATTEND Surgery
DX: E11.621 Type 2 diabetes mellitus with foot ulcer (principal); E11.42 Type 2 diabetes mellitus with diabetic polyneuropathy; L97.512 Non-pressure chronic ulcer of other part of right foot with fat layer exposed; F20.9 Schizophrenia, unspecified
CPT/HCPCS: 36415; 83036; 84134

== ENCOUNTER → 2019-05-09 | Outpatient (CLI) | payer MEDICARE, MEDICAID | LOC: WOUNDCARE 08:44 | PROVIDERS: ATTEND Surgery | DX: E11.621 Type 2 diabetes mellitus with foot ulcer (principal); E11.42 Type 2 diabetes mellitus with diabetic polyneuropathy; E11.52 Type 2 diabetes mellitus with diabetic peripheral angiopathy with gangrene; L97.512 Non-pressure chronic ulcer of other part of right foot with fat layer exposed; F20.9 Schizophrenia, unspecified; I96 Gangrene, not elsewhere classified | CPT/HCPCS: 11042 ==

== ENCOUNTER → 2019-05-16 | Outpatient (CLI) | payer MEDICARE, MEDICAID ==
[~2019-05-16] MED LIST changes: +TRM50T PO
== END ==
LOC: WOUNDCARE 12:28
PROVIDERS: ATTEND Preventive Medicine Undersea and Hyperbaric Medicine
DX: E11.621 Type 2 diabetes mellitus with foot ulcer (principal); E11.42 Type 2 diabetes mellitus with diabetic polyneuropathy; L97.512 Non-pressure chronic ulcer of other part of right foot with fat layer exposed; F20.9 Schizophrenia, unspecified
CPT/HCPCS: 11042

== ENCOUNTER → 2019-05-30 | Outpatient (CLI) | payer MEDICARE, MEDICAID ==
[~2019-05-30] MED LIST changes: -LISI1TAB10 PO; +LISI1TAB26 PO; -METO-370 PO; +METO50TA7 PO
== END ==
LOC: WOUNDCARE 13:09
PROVIDERS: ATTEND Preventive Medicine Undersea and Hyperbaric Medicine
DX: E11.621 Type 2 diabetes mellitus with foot ulcer (principal); E11.52 Type 2 diabetes mellitus with diabetic peripheral angiopathy with gangrene; E11.42 Type 2 diabetes mellitus with diabetic polyneuropathy; L97.512 Non-pressure chronic ulcer of other part of right foot with fat layer exposed; I96 Gangrene, not elsewhere classified; F20.9 Schizophrenia, unspecified
CPT/HCPCS: 11042

== ENCOUNTER → 2019-06-06 | Outpatient (CLI) | payer MEDICARE, MEDICAID | LOC: WOUNDCARE 13:35 | PROVIDERS: ATTEND Orthopaedic Surgery Hand Surgery | DX: E11.621 Type 2 diabetes mellitus with foot ulcer (principal); E11.42 Type 2 diabetes mellitus with diabetic polyneuropathy; F20.9 Schizophrenia, unspecified; L97.512 Non-pressure chronic ulcer of other part of right foot with fat layer exposed; I10 Essential (primary) hypertension | CPT/HCPCS: 11042 ==

== ENCOUNTER → 2019-06-20 | Outpatient (CLI) | payer MEDICARE, MEDICAID | LOC: WOUNDCARE 13:15 | PROVIDERS: ATTEND Preventive Medicine Undersea and Hyperbaric Medicine | DX: E11.621 Type 2 diabetes mellitus with foot ulcer (principal); E11.42 Type 2 diabetes mellitus with diabetic polyneuropathy; L97.512 Non-pressure chronic ulcer of other part of right foot with fat layer exposed; F20.9 Schizophrenia, unspecified; I10 Essential (primary) hypertension | CPT/HCPCS: 11042 ==

== ENCOUNTER → 2019-06-27 | Outpatient (CLI) | payer MEDICARE, MEDICAID | LOC: WOUNDCARE 13:14 | PROVIDERS: ATTEND Preventive Medicine Undersea and Hyperbaric Medicine | DX: E11.621 Type 2 diabetes mellitus with foot ulcer (principal); E11.42 Type 2 diabetes mellitus with diabetic polyneuropathy; L97.512 Non-pressure chronic ulcer of other part of right foot with fat layer exposed; F20.9 Schizophrenia, unspecified; I10 Essential (primary) hypertension | CPT/HCPCS: 99212 ==

== ENCOUNTER → 2019-07-13 | Outpatient (CLI) | payer MEDICARE, MEDICAID ==
[~2019-07-13] MED LIST changes: -TRAZ-190 PO; +TRAZ-227 PO
== END ==
LOC: WOUNDCARE 12:54
PROVIDERS: ATTEND Surgery
DX: E11.621 Type 2 diabetes mellitus with foot ulcer (principal); E11.52 Type 2 diabetes mellitus with diabetic peripheral angiopathy with gangrene; E11.42 Type 2 diabetes mellitus with diabetic polyneuropathy; L97.512 Non-pressure chronic ulcer of other part of right foot with fat layer exposed; I70.261 Atherosclerosis of native arteries of extremities with gangrene, right leg; I10 Essential (primary) hypertension; F20.9 Schizophrenia, unspecified
CPT/HCPCS: 11042

== ENCOUNTER → 2019-07-18 | Outpatient (CLI) | payer MEDICARE, MEDICAID | LOC: WOUNDCARE 13:25 | PROVIDERS: ATTEND Surgery | DX: L97.521 Non-pressure chronic ulcer of other part of left foot limited to breakdown of skin (principal); E11.621 Type 2 diabetes mellitus with foot ulcer; E11.42 Type 2 diabetes mellitus with diabetic polyneuropathy; E11.52 Type 2 diabetes mellitus with diabetic peripheral angiopathy with gangrene; L97.512 Non-pressure chronic ulcer of other part of right foot with fat layer exposed; F20.9 Schizophrenia, unspecified; I10 Essential (primary) hypertension; I70.235 Atherosclerosis of native arteries of right leg with ulceration of other part of foot | CPT/HCPCS: 97597 ==

== ENCOUNTER 2019-07-20 09:13 | Outpatient (CLI) | payer MEDICARE, MEDICAID ==
[~2019-07-20] VITALS: Ht 175 cm; Wt 122.0 kg
== END 2019-07-20 09:44 | disposition home or self-care (01) ==
LOC: PREOP 09:13
PROVIDERS: ATTEND Surgery
DX: Z01.818 Encounter for other preprocedural examination (principal)

== ENCOUNTER 2019-07-21 11:50 | Day surgery (SDC) | payer MEDICARE, MEDICAID ==
[~2019-07-21] VITALS: Ht 177.8 cm; Wt 122.0 kg
[2019-07-21] VITALS (10 sets, daily range): BP systolic 112–185; BP diastolic 72–109
[2019-07-21] MEDS ORDERED: LACTATED RINGERS 1,000 ML IV PRN (12:16)
[2019-07-21] MEDS ORDERED: ceFAZolin 2 GM IV Premixed 50 ML ONE (12:40)
[2019-07-21] MEDS ORDERED: ceFAZolin 2 GM IV Premixed 50 ML IV ONE (12:45)
--- NOTE | 2019-07-21 12:54 | Progress Note-Pre Operative ---
Pre-Operative Progress Note H&P Reviewed The H&P was reviewed, patient examined and no changes noted. Date Seen by Provider: Jul 21, 2019 Time Seen by Provider: 12:45 Date H&P Reviewed: Jul 21, 2019 Time H&P Reviewed: 12:45 Pre-Operative Diagnosis: right 3rd toe osteomyelitis ANSELMO LAN MD Jul 21, 2019 12:54
--- NOTE | 2019-07-21 12:56 | Discharge Inst-Surgical ---
D/C Lap Instructions-RIKY Follow Up Appt in 2 weeks Activity as tolerated No driving for 24 hours No driving while on pain medications Incentive Spirometry use every 2 hours while awake Regular Diet Symptoms to Report: Fever over 101 degree F, Nausea/Vomiting Infection Signs and Symptoms to report: Increased redness, Foul odor of wound, Increased drainage Bathing instructions: May shower Operative Area Clean/Dry; Keep incision clean/dry If any problems/questions: Contact your physician or go to Emergency Room ANSELMO LAN MD Jul 21, 2019 12:56
[2019-07-21] MEDS ORDERED: ONDANSETRON 4 MG/2 ML (SDV) Z0FRAN ONE (13:00)
[2019-07-21] MEDS ORDERED: ACETAMINOPHEN 325 MG TABLET PO PRN (13:00)
[2019-07-21] MEDS ORDERED: LIDOCAINE PF 2% 5 ML (XYLOCAINE) VIAL ONE (13:00)
[2019-07-21] MEDS ORDERED: ONDANSETRON 4 MG/2 ML (SDV) Z0FRAN IVP PRN ×2 (13:00→14:30)
[2019-07-21] MEDS ORDERED: oxyCODONE/APAP 5/325MG (PERCOCET 5) TABLET PO PRN (13:00)
[2019-07-21] MEDS ORDERED: morphine INJ 10 MG/ML 1ML (SYR OR VIAL) IVP PRN ×2 (13:00)
[2019-07-21] MEDS ORDERED: MIDAZOLAM 2 MG/2 ML (VERSED) VIAL ONE (13:00)
[2019-07-21] MEDS ORDERED: DEXAMETHASONE 10 MG/ML (DECADRON) 1 ML VIAL ONE (13:00)
[2019-07-21] MEDS ORDERED: proPOfol 200 MG/20 ML (DIPRIVAN) VIAL IV ONE (13:00)
[2019-07-21] MEDS ORDERED: fentaNYL INJECTION 100 MCG/2 ML AMP ONE (13:01)
[2019-07-21] MEDS ORDERED: BUPIVACAINE 0.5% 30 ML (SENSORCAINE) VIAL ONE (13:27)
[2019-07-21] MEDS ORDERED: morphine INJ 10 MG/ML 1ML (SYR OR VIAL) IVP ONE (14:30)
[2019-07-21] MEDS ORDERED: HYDROmorphone 2 MG/ML VIAL (DILAUDID) IV ONE (14:30)
--- NOTE | 2019-07-21 14:40 | Progress Note-Post Operative ---
Post-Operative Progess Note Surgeon (s)/Surveying Crew Rodman (s) Surgeon ANSELMO LAN MD Surveying Crew Rodman: bernardo bruno [employer] Pre-Operative Diagnosis right 3rd toe osteomyelitis Post-Operative Diagnosis same Procedure & Operative Findings Date of Procedure 07/21/19 Procedure Performed/Findings amputation right 3rd toe Anesthesia Type general LMA Estimated Blood Loss Estimated blood loss (mL): minimal Specimens/Packing Specimens Removed left 3rd toe ANSELMO LAN MD Jul 21, 2019 14:40
[2019-07-21] MEDS ORDERED: HYDROmorphone 2 MG/ML VIAL (DILAUDID) ONE (14:43)
[2019-07-21] MEDS ORDERED: SEVOFLURANE (ULTANE) 15 ML INHAL SOLN ONE (14:49)
--- NOTE | 2019-07-21 15:16 | Anesthesia-General Post-Op ---
General Patient Condition Mental Status/LOC: Same as Preop Cardiovascular: Satisfactory Nausea/Vomiting: Absent Respiratory: Satisfactory Pain: Controlled Complications: Absent Post Op Complications Complications None Follow Up Care/Instructions Patient Instructions None needed. Anesthesia/Patient Condition Patient Condition Patient is doing well, no complaints, stable vital signs, no apparent adverse anesthesia problems. No complications reported per nursing. JESSICA CALABRESE DO Jul 21, 2019 15:16
--- NOTE | 2019-07-21 23:03 | OPERATIVE REPORT ---
DATE OF SERVICE: 07/21/2019 ATTENDING PRIMARY CARE PHYSICIAN: Dr. Nazario. PREOPERATIVE DIAGNOSIS: Osteomyelitis, left third toe. POSTOPERATIVE DIAGNOSES: Osteomyelitis, left third toe. PROCEDURE: Left third toe amputation. SURGEON: Anselmo Lan MD. MANAGEMENT SME: Blair Lewis APRN. ANESTHESIA: General laryngeal mask airway. ESTIMATED BLOOD LOSS: Minimal. FINDINGS: Soft long bones of the left third phalanx consistent with osteomyelitis. DISPOSITION: The patient tolerated the procedure well. INDICATIONS: The patient is a 44-year-old male with longstanding history of diabetes as well as medical noncompliance as well as previous history of drug abuse. He has had previous episodes of skin infections as well as osteomyelitis and has undergone previous toe amputations in the past. He presents with an osteomyelitis of the right third toe. He has been seen by wound care and evaluated and x-rays were consistent with osteomyelitis with skin changes consistent with chronic infection. He does not report any systemic symptoms of fevers or chills. DESCRIPTION OF PROCEDURE: The patient was brought to the operating room, laid supine on the table. After adequate IV pain and sedating medications and general laryngeal mask airway intubation, the right foot was prepped and draped in a standard surgical fashion. Skin flaps were then drawn out using a marking pen and the skin incision made using a 15 blade. We then proceeded to dissect the metatarsophalangeal joint using electrocautery until the joint capsule was completely free. The specimen was sent to pathology. Good hemostasis was observed, and the subcutaneous tissue was then reapproximated using 3-0 Vicryl interrupted sutures and the skin was closed using 0 Prolene interrupted sutures. The foot was then covered with sterile gauze followed by Kerlix, followed by Coban. The patient tolerated the procedure well. We will start IV and oral pain medications as well as a clear liquid diet. Once he is tolerating clears, has good pain control with oral pain medications, ambulating well, we will discharge him home. Job ID: [id number] DocumentID: [id number] Dictated Date: 07/21/2019 14:47:30 Lead Programmer Analyst Date: 07/21/2019 23:02:23 Dictated By: ANSELMO LAN MD
== END 2019-07-21 16:40 | disposition home or self-care (01) ==
LOC: SDC 11:50
PROVIDERS: ATTEND Surgery
DX: E11.69 Type 2 diabetes mellitus with other specified complication (principal); M86.9 Osteomyelitis, unspecified; Z11.2 Encounter for screening for other bacterial diseases; Z91.19 Patient's noncompliance with other medical treatment and regimen; F31.9 Bipolar disorder, unspecified; F20.9 Schizophrenia, unspecified; I10 Essential (primary) hypertension; E11.51 Type 2 diabetes mellitus with diabetic peripheral angiopathy without gangrene; F17.210 Nicotine dependence, cigarettes, uncomplicated; J45.909 Unspecified asthma, uncomplicated; K21.9 Gastro-esophageal reflux disease without esophagitis; B19.20 Unspecified viral hepatitis C without hepatic coma; Z91.040 Latex allergy status; Z79.899 Other long term (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
CPT/HCPCS: 82962; 87081

== ENCOUNTER → 2019-08-01 | Outpatient (CLI) | payer MEDICARE, MEDICAID | LOC: WOUNDCARE 11:26 | PROVIDERS: ATTEND Surgery | DX: L97.522 Non-pressure chronic ulcer of other part of left foot with fat layer exposed (principal); E11.621 Type 2 diabetes mellitus with foot ulcer; E11.42 Type 2 diabetes mellitus with diabetic polyneuropathy; L97.512 Non-pressure chronic ulcer of other part of right foot with fat layer exposed; F20.9 Schizophrenia, unspecified; I10 Essential (primary) hypertension; I70.235 Atherosclerosis of native arteries of right leg with ulceration of other part of foot | CPT/HCPCS: 11042 ==

== ENCOUNTER → 2019-08-15 | Outpatient (CLI) | payer MEDICARE, MEDICAID | LOC: WOUNDCARE 11:20 | PROVIDERS: ATTEND Surgery | DX: E11.621 Type 2 diabetes mellitus with foot ulcer (principal); E11.42 Type 2 diabetes mellitus with diabetic polyneuropathy; L97.514 Non-pressure chronic ulcer of other part of right foot with necrosis of bone; L97.522 Non-pressure chronic ulcer of other part of left foot with fat layer exposed; F20.9 Schizophrenia, unspecified; I10 Essential (primary) hypertension; I70.235 Atherosclerosis of native arteries of right leg with ulceration of other part of foot | CPT/HCPCS: 11042; 11044; 87070; 87205 ==

== ENCOUNTER → 2019-08-22 | Outpatient (CLI) | payer MEDICARE, MEDICAID ==
[2019-08-22 10:42] LABS: BASOPHILS % (AUTO) 0 % (0-10); EOSINOPHILS # (AUTO) 0.1 10^3/uL (0.0-0.3); EOSINOPHILS % (AUTO) 1 % (0-10); HEMATOCRIT 42 % (40-54); HEMOGLOBIN 15.2 G/DL (13.3-17.7); LYMPHOCYTES # (AUTO) 3.1 X 10^3 (1.0-4.0); LYMPHOCYTES % (AUTO) 39 % (12-44); MEAN CORPUSCULAR HEMOGLOBIN 33 PG (25-34); MEAN CORPUSCULAR HGB CONC 36 G/DL (32-36); MEAN CORPUSCULAR VOLUME 93 FL (80-99); MONOCYTES # (AUTO) 0.9 X 10^3 (0.0-1.0); MONOCYTES % (AUTO) 11 % (0-12); NEUTROPHILS # (AUTO) 3.9 X 10^3 (1.8-7.8); NEUTROPHILS % (AUTO) 49 % (42-75); PLATELET COUNT 299 10^3/uL (130-400)
[2019-08-22 10:50] LABS: ALBUMIN 4.1 GM/DL (3.2-4.5); CHLORIDE 97 MMOL/L (98-107); POTASSIUM 4.2 MMOL/L (3.6-5.0); SODIUM 128 MMOL/L (135-145)
[2019-08-22 10:51] LABS: CALCIUM 9.1 MG/DL (8.5-10.1)
[2019-08-22 10:52] LABS: GLUCOSE 165 MG/DL (70-105); TOTAL PROTEIN 7.3 GM/DL (6.4-8.2)
[2019-08-22 10:53] LABS: CARBON DIOXIDE 19 MMOL/L (21-32)
[2019-08-22 10:54] LABS: BILIRUBIN,TOTAL 0.4 MG/DL (0.1-1.0)
[2019-08-22 10:56] LABS: ALKALINE PHOSPHATASE 67 U/L (40-136); CREATININE SERUM 0.72 MG/DL (0.60-1.30); GFR ESTIMATED > 60
[2019-08-22 10:57] LABS: BUN/CREATININE RATIO 6
[2019-08-22 10:59] LABS: ALANINE AMINOTRANSFERASE 13 U/L (0-55)
--- NOTE | 2019-08-22 11:17 | Diagnostic Imaging Report ---
INDICATION: Bilateral diabetic foot ulcers. COMPARISON: Right foot radiographs of 01/26/2019 TECHNIQUE: 3 nonweightbearing views of each foot were obtained for total of 6 views. FINDINGS: Left foot: Soft tissue swelling along the medial aspect of the great toe with potential dermal ulceration. No soft tissue gas. No osseous erosions are appreciated. Chronic periosteal reaction involving the fifth proximal phalanx may be due to old healed fracture. No fixed pes planus deformity. Small dorsal calcaneal spur. Achilles shadow is normal. Right foot: Amputation of the fifth ray at the level of the mid metatarsal has been performed in stable appearance. Third toe amputation as well as partial amputation of the great toe have been performed since prior examination. Partial amputation of the second toe is unchanged. New periosteal callus formation along the head neck junction of the third metatarsal has developed. Chronic broadening and remodeling of the first metatarsal is stable. IMPRESSION: 1. New periosteal bone formation involving the right third metatarsal head neck junction could be due to sequelae of subacute to chronic osteomyelitis or nondisplaced fracture. No fracture lines appreciated. 2. No structural changes in the left foot that would confirm osteomyelitis. Dictated by: Dictated on workstation # [id number]
== END ==
LOC: RAD 10:13
PROVIDERS: ATTEND Surgery
DX: E11.621 Type 2 diabetes mellitus with foot ulcer (principal); L97.514 Non-pressure chronic ulcer of other part of right foot with necrosis of bone; B18.2 Chronic viral hepatitis C
CPT/HCPCS: 36415; 80053; 83036; 85025; 87522

== ENCOUNTER → 2019-08-22 | Outpatient (CLI) | payer MEDICARE, MEDICAID | LOC: WOUNDCARE 11:13 | PROVIDERS: ATTEND Surgery | DX: E11.621 Type 2 diabetes mellitus with foot ulcer (principal); E11.42 Type 2 diabetes mellitus with diabetic polyneuropathy; L97.512 Non-pressure chronic ulcer of other part of right foot with fat layer exposed; L97.522 Non-pressure chronic ulcer of other part of left foot with fat layer exposed; F20.9 Schizophrenia, unspecified; I10 Essential (primary) hypertension; M86.471 Chronic osteomyelitis with draining sinus, right ankle and foot | CPT/HCPCS: 11042 ==

== ENCOUNTER → 2019-08-29 | Outpatient (CLI) | payer MEDICARE, MEDICAID ==
[2019-08-29 12:29] LABS: BUN/CREATININE RATIO 7; CARBON DIOXIDE 23 MMOL/L (21-32); CHLORIDE 96 MMOL/L (98-107); CREATININE SERUM 0.69 MG/DL (0.60-1.30); GFR ESTIMATED > 60; GLUCOSE 133 MG/DL (70-105); POTASSIUM 4.5 MMOL/L (3.6-5.0); SODIUM 129 MMOL/L (135-145)
== END ==
LOC: WOUNDCARE 10:22
PROVIDERS: ATTEND Surgery
DX: E11.621 Type 2 diabetes mellitus with foot ulcer (principal); E11.42 Type 2 diabetes mellitus with diabetic polyneuropathy; L97.512 Non-pressure chronic ulcer of other part of right foot with fat layer exposed; L97.522 Non-pressure chronic ulcer of other part of left foot with fat layer exposed; F20.9 Schizophrenia, unspecified; I10 Essential (primary) hypertension; M86.471 Chronic osteomyelitis with draining sinus, right ankle and foot
CPT/HCPCS: 11042; 36415; 80048

== ENCOUNTER → 2019-09-05 | Outpatient (CLI) | payer MEDICARE, MEDICAID | LOC: WOUNDCARE 09:17 | PROVIDERS: ATTEND Surgery | DX: E11.621 Type 2 diabetes mellitus with foot ulcer (principal); E11.42 Type 2 diabetes mellitus with diabetic polyneuropathy; L97.512 Non-pressure chronic ulcer of other part of right foot with fat layer exposed; L97.522 Non-pressure chronic ulcer of other part of left foot with fat layer exposed; F20.9 Schizophrenia, unspecified; I10 Essential (primary) hypertension; M86.471 Chronic osteomyelitis with draining sinus, right ankle and foot | CPT/HCPCS: 11042 ==

== ENCOUNTER 2019-09-09 08:22 | Emergency (ER) | payer MEDICARE, MEDICAID ==
[~2019-09-09] VITALS: Ht 175 cm; Wt 122.7 kg
[2019-09-09] MEDS ORDERED: FAMOTIDINE 20MG/2ML IV (PEPCID) IV STA (08:28)
[2019-09-09] MEDS ORDERED: NS IV 1000 ML 1,000 ML IV STA (08:28)
--- OUTSIDE RECORDS SUMMARY | 2019-09-09 08:29 | XMS REPORT ---
Author Author [employer] Organization [employer]. Address [address] [place] [address] Care Team Providers Care Plant Clerk Name Role Phone KHOURY, ANIL Unavailable Unavailable KHOURY, ANIL Unavailable KHOURY, ANIL Unavailable MELIZA THORNTON Unavailable Unavailable KHOURY, ANIL Unavailable KHOURY, ANIL Unavailable KHOURY, ANIL Unavailable KHOURY, ANIL Unavailable KHOURY, ANIL Unavailable KHOURY, ANIL Unavailable KHOURY, ANIL Unavailable KHOURY, ANIL Unavailable KHOURY, ANIL Unavailable ZEYNEP Keene Unavailable MARINE, EMILIANO Unavailable KHOURY, ANIL Unavailable YVES BLEVINS Unavailable YVES BLEVINS Unavailable CayetanoNDERS, ANIL Unavailable zzSANDERS, ANIL Unavailable MARINE, EMILIANO Unavailable MARINE, EMILIANO Unavailable YVES BLEVINS Unavailable Daniel, ANIL Unavailable YVES BLEVINS Unavailable YVES BLEVINS Unavailable YVES BLEVINS Unavailable YVES BLEVINS Unavailable YVES BLEVINS Unavailable HUERTER, YVES Unavailable MARINE, EMILIANO Unavailable HUERTER, YVES Unavailable HUERTER, YVES Unavailable HUERTER, YVES Unavailable HUERTER, YVES Unavailable HUERTER, YVES Unavailable HUERTER, YVES Unavailable HUERTER, YVES Unavailable HUERTER, YVES Unavailable HUERTER, YVES Unavailable TESHA STACY Unavailable HUERTER, YVES Unavailable HUERTER, YVES Unavailable HUERTER, YVES Unavailable HUERTER, YVES Unavailable HUERTER, YVES Unavailable HUERTER, YVES Unavailable HUERTER, YVES Unavailable HUERTER, YVES Unavailable HUERTER, YVES Unavailable HUERTER, YVES Unavailable HUERTER, YVES Unavailable HUERTER, YVES Unavailable HUERTER, YVES Unavailable HUERTER, YVES Unavailable HUERTER, YVES Unavailable KALYANI TRAORE MD Unavailable Unavailable ALISON HOLCOMB Unavailable CLAY HIGHTOWER Unavailable CLAY HIGHTOWRE Unavailable HUERTER, YVES Unavailable HUERTER, YVES Unavailable HUERTER, YVES Unavailable HUERTER, YVES Unavailable HUERTER, YVES Unavailable HUERTER, YVES Unavailable HUERTER, YVES Unavailable TESHA STACY Unavailable HUERTER, YVES Unavailable YVES BLEVINS Unavailable YVES BLEVINS Unavailable GEN, YVES Unavailable Migration, Doctor Unavailable Unavailable Migration, Doctor Unavailable Unavailable TESHA STACY Unavailable MARCOS HERNANDEZ, KRISTINA Pinto Unavailable Unavailable MARCOS HERNANDEZ, KRISTINA Pinto Unavailable Unavailable KEVIN ROBB Unavailable Unavailable ANU HERNANDEZ, CLAY Zapata Unavailable Unavailable PHILIPPE HERNANDEZ, SIENA Carr Unavailable Unavailable PAULETTE KAPLAN Unavailable Unavailable SHADI DO, JOSHUA Lang Unavailable Unavailable WERNER DRIVER APRN Unavailable Unavailable YVES BLEVINS F Unavailable Unavailable EDWARDS DO, ISAK Unavailable Unavailable EDWARDS DO, ISAK Unavailable Unavailable Migration, Doctor Unavailable Unavailable Migration, Doctor Unavailable Unavailable ZZGILMORE CASHERO, MELIZA Unavailable ZZGILMORE CASHERO, MELIZA Unavailable ZZGILMORE CASHERO, MELIZA Unavailable ZZGILMORE CASHERO, MELIZA Unavailable RACIEL BURROUGHS Unavailable ZZGILMORE CASHERO, MELIZA Unavailable ZZGILMORE CASHERO, MELIZA Unavailable ZZGILMORE CASHERO, MELIZA Unavailable ZZGILMORE CASHERO, MELIZA Unavailable ZZGILMORE CASHERO, MELIZA Unavailable ZZGILMORE CASHERO, MELIZA Unavailable ZZGILMORE CASHERO, MELIZA Unavailable KATHRIN JESUS Unavailable ZZGILMORE CASHERO, MELIZA Unavailable ZZGILMORE CASHERO, MELIZA Unavailable YVES BLEVINS Unavailable KILEY HERNANDEZ, VILMA Carr Unavailable Unavailable CLARISSE HERNANDEZ, KEVIN Avila Unavailable Unavailable YONATAN LUCIO MD Unavailable Unavailable UNKNOWN, UNKNOWN Unavailable Unavailable ZZGILMORE CASHERO, MELIZA Unavailable ZZGILMORE CASHERO, MELIZA Unavailable ROQUE BAKER MD Unavailable Unavailable ZZGILMORE CASHERO, MELIZA Unavailable Migration, Doctor Unavailable Unavailable ZZGILMORE CASHERO, MELIZA Unavailable ZZGILMORE CASHERO, MELIZA Unavailable YVES BLEVINS Unavailable YVES BLEVINS Unavailable ANSELMO LAN MD Unavailable Unavailable ZZGILMORE CASHERO, MELIZA Unavailable TESHA STACY Unavailable ZZGILMORE CASHERO, MELIZA Unavailable ZZGILMORE CASHERO, MELIZA Unavailable ZZGILMORE CASHERO, MELIZA Unavailable ZZGILMORE CASHERO, MELIZA Unavailable ZZGILMORE CASHERO, MELIZA Unavailable Allergies Normalized Allergy Reported Date of Reaction(s) Care Provider Facility Allergy Type classification allergen Allergy Onset Drug Allergy Fluorescein fluorescein UNKNOWN [facility] (22 sources.) [facility] ([address]60) Medications Current Medications Medication Ingredient Drug Dose Dates Status Sig Sig Care Class(es) (Normalized) (Original) Provid er amoxicillin amoxicillin Penicillin- 875 mg Active no Amoxici llin no 875 mg oral Translation class information 875 MG name tablet (2 s: [ Antibacteri Orally every (no sources.) Amoxicillin al 12 hrs 1 phone) 875 MG] tablet 12h 10 day(s) Active guaiFENesin guaiFENesin no 400 mg Active no Guaifenesin no 400 mg oral Translation information information 400 MG na me tablet (2 s: [ Orally every (no sources.) Guaifenesin 4 hrs 1 phone) 400 MG] tablet as needed 4h 10 days Active lisinopril lisinopril Angiotensin 20 mg 11-06-19 Active no Lisinopril no 20 mg oral Translation Converting 18 information 20 mg Or ally name tablet (6 s: [ Enzyme Once a day 1 (no sources.) Lisinopril Inhibitor tablet 24h phone) 20 mg, Oct, Lisinopril 30 day(s) 20 mg] Active 24 hr paliperidon Atypical 6 mg Active take 1 Invega 6 MG no paliperidon e Antipsychot tablet by Orally at name e 6 mg Translation ic mouth at bedtime 1 (no extended s: [ Invega bedtime tablet phone) release 6 MG, Active oral tablet Invega 6 (7 MG] sources.) no Polyethylen no 07-24-19 Active take 1 Polyethylene no information e Glycols information 19 capsule by Glycol 33 50 name (1 source.) Translation mouth twice - Orally (no s: [ daily twice dailyl phone) Polyethylen 1 cap full e Glycol twice daily 3350 -] until results Jul, 5 days Active sulfamethox sulfamethox Dihydrofola 11-27-19 Active no Bactr im DS no azole 800 azole / te 18 - information 800-160 MG nam e mg / trimethopri Reductase 12-07-19 Orally Twice (no trimethopri m Inhibitor 18 a day 1 phone) m 160 mg Translation Antibacteri tablet 12h oral tablet s: [ al, Nov, (1 source.) Bactrim DS Sulfonamide Nov, 800-160 MG] Antimicrobi 10 day(s) al Active Completed/Discontinued Medications Medication Ingredient Drug Dose Dates Status Sig Sig Care Class(es) (Normalized) (Original) Provid er no cefTRIAXone Cephalospor 1 g 04-16-20 no no no no information in 18 - informat information information name (1 source.) Antibacteri 04-16-20 ion (no al 18 phone) 12 hr dextrometho Uncompetiti 08-07-19 no no Robitussin no dextrometho rphan ve 17 informat information 12 Hour na me rphan Translation N-methyl-D- ion Cough 30 (no polistirex s: [ aspartate mg/5ml phone) 6 mg/ml Robitussin Receptor Orally every extended 12 Hour Antagonist, 12 hrs 10 ml release Cough 30 Sigma-1 as needed suspension mg/5ml] Agonist 12h 29 Jul, (2 2017 sources.) Not-Taking no POLY/BACI/N no 04-16-20 no no no no information EOM OINT information 18 - informat information inf ormation name (1 source.) OINT 04-16-20 ion (no (NEOSPORIN) 18 phone) NEGATED no no 40 mg 01-11-20 no no no no no information information 18 - informat information infor mation name information 01-11-20 ion (no (1 source.) 18 phone) NEGATED no no 01-11-20 no no no no no information information 18 - informat information infor mation name information 01-11-20 ion (no (1 source.) 18 phone) NEGATED no no 01-10-20 no no no no no information information 18 - informat information infor mation name information 01-10-20 ion (no (1 source.) 18 phone) NEGATED no no 01-10-20 no no no no no information information 18 - informat information infor mation name information 01-10-20 ion (no (1 source.) 18 phone) NEGATED no no 01-11-20 no no no no no information information 18 - informat information infor mation name information 01-11-20 ion (no (1 source.) 18 phone) Problems Active Problems Problem Normalized Date of Normalized Normalized Provider Fac ility Classification Problem(s) Problem Problem Problem Sta tus Onset/Resoluti Duration on Other bone Acquired Episodic Active YVES BLEVINS Communit y disease and absence of [id number] [place] [address] musculoskeleta limb, of [facility] l deformities unspecified [place] ([address]15) (1 source.) Translations: [ - History of amputation Z89.9] Other bone Acquired 07-18-2019 - Episodic Active WERNER DRIVER [facility] Via disease and absence of Kati musculoskeleta [facility] - l deformities toe(s) [place] (27 sources.) ([address]346) Other bone Acquired 07-18-2019 - Chronic Active KEVIN ROBB [facility] Via disease and absence of Kati musculoskeleta [facility] - l deformities toe [place] (10 sources.) (52754) NEGATED Acute Episodic Active [facility] no gastritis, District [facility]1 of information (6 without Glass sources.) mention of County ([address]) hemorrhage Translations: [ ACUTE GASTRITIS WITHOUT BLEEDING, DUODENITIS WITHOUT BLEEDING, DUODENITIS, WITHOUT MENTION OF HEMORRHAGE] Pancreatic Acute 07-18-2019 - Episodic Active ISAK EDWARDS [facility] Via disorders (not pancreatitis DO Kati diabetes) (10 Translations: Hospital - sources.) [ ACUTE [place] PANCREATITIS (45155) WITHOUT NECROSIS OR I] Respiratory Acute 07-18-2019 - Episodic Active ISAK EDWARDS , [facility] Via failure; respiratory DO [place]ati insufficiency; failure, Hospital - arrest (adult) unspecified [place] (12 sources.) whether with (99578) hypoxia or hypercapnia Otitis media Acute Episodic Active YVES rudolph and related suppurative [facility] [facility] conditions (20 otitis media of [place] sources[place] without [place] (32090) spontaneous rupture of ear drum, right ear Translations: [ - Acute suppurative otitis media of right ear without spontaneous rupture of tympanic membrane, recurrence not specified H66.001, - Acute suppurative otitis media of right ear without spontaneous rupture of tympanic membrane, recurrence not specified H66.001] Deficiency and Anemia, 07-18-2019 - Episodic Active KRISTINA SALMERON LT , [facility] Via other anemia unspecified MD Parikh (25 sources.) [facility] (40089) Anxiety Anxiety Chronic Active BRIDGER Not Available disorders (1 disorder, [place] (28946) source.) unspecified Translations: [ ANXIETY STATE, UNSPECIFIED] Gangrene (3 Atherosclerosi 07-14-2019 - Chronic Active MARVIN ERICKSON [facility] Via sources.) s of [place] , MD Parikh arteries of [facility] extremities [place] with gangrene, (08460) right leg Hepatitis (20 Chronic 07-18-2019 - Chronic Active YVES MCKEON Community sources.) hepatitis C [facility] Translations: of [facility] [ Chronic [place] (31159) hepatitis C without hepatic coma, Chronic hepatitis C without hepatic coma, - Chronic hepatitis C without hepatic coma B18.2] Other nervous Chronic pain Chronic Active YVES Aguirre om[facility]ity system syndrome [address] [facility] disorders (20 Translations: of [facility] sources.) [ - Chronic [place] (98489) pain syndrome G89.4, - Chronic pain syndrome G89.4] Other nervous Chronic pain Chronic Active YVES Aguirre ommunity system syndrome 70464 [facility] disorders (20 Translations: of [facility] sources.) [ - Chronic [place] (76923) pain associated with significant psychosocial dysfunction 338.4, - Chronic pain associated with significant psychosocial dysfunction 338.4] Other lower Cough Episodic Active YVES HUERTER Communi ty respiratory Translations: 89984 [facility] disease (20 [ - Cough R05, of [place] sources.) - Cough R05] [place] (40652) Other skin Disorder of 07-18-2019 - Episodic Active KEVIN [facility] Via disorders (19 pigmentation, Kati sources.) unspecified Hospital - [place] (23035) External cause Fall (on) 07-18-2019 - Episodic Active PAULETTE EUSEBIO [facility] Via codes: Fall (5 (from) other Kati sources.) stairs and Hospital - steps, initial [place] encounter (71877) Gangrene (9 Gangrene, not 06-28-2019 - Episodic Active ISAK FRANZ , [facility] Via sources.) elsewhere DO Kati classified Hospital - [place] () Abdominal pain Generalized Episodic Active [facility] (6 sources.) abdominal pain District [facility]1 of Translations: [place] [ ABDOMINAL County (99959) PAIN, GENERALIZED] Genitourinary Gross 07-18-2019 - Episodic Active KEVIN [facility] Via symptoms and hematuria [place]ati ill-defined Hospital - conditions (8 [place] sources.) (18301) Fluid and Hypo-osmolalit 07-18-2019 - Episodic Active KRISTINA REYEST , [facility] Via electrolyte y and MD Parikh disorders (26 hyponatremia Hospital - sources.) Translations: [place] [ (70528) HYPOSMOLALITY AND/OR HYPONATREMIA, HYPO-OSMOLALIT Y AND HYPONATREMIA] Intestinal Ileus, 07-18-2019 - Episodic Active ISAK EDWARDS , [facility] Via obstruction unspecified DO [place] without hernia Hospital - (6 sources.) [place] (52340) Other male Impotence of Chronic Active YVES BLEVINS Comm unity genital organic origin 02406 [facility] disorders (20 Translations: of [place] sources[place] [ ED (erectile [place] (77628) dysfunction), ED (erectile dysfunction)] Other Multiple 07-18-2019 - Episodic Active PAULETTE EUSEBIO [facility] V ia fractures (10 fractures of [place]ati sources.) ribs, left Hospital - side, initial [place] encounter for (50542) closed fracture Other nervous Other chronic Chronic Active YVES BLEVINS Community system pain [address] [facility] disorders (20 Translations: of [place] sources[place] [ - Chronic [place] (81279) pain 338.29, - Chronic pain 338.29] Attention-defi 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 Active MASON ROBB [facility] Via cit conduct disorders [place] and disruptive Hospital - behavior [place] disorders (4 (50457) sources.) Bacterial Other Episodic Active [facility] infection (1 staphylococcus District [facility]1 of source.) as the cause [facility] (74403) classified elsewhere Translations: [ OTHER STAPHYLOCOCCUS INFECTION IN CONDITIONS CLASSIFIED ELSEWHERE AND OF UNSPECIFIED SITE] Attention-defi Other symptoms 07-18-2019 - Episodic Active MIN SAVI EDWARDS , [facility] Via cit conduct and signs DO [place] and disruptive involving Hospital - behavior appearance and [place] disorders (5 behavior (29274) sources.) Other Pain in limb Episodic Active YVES Lawrenceu [place] connective Translations: [address] [facility] tissue disease [ - Foot pain, of [place] (20 sources.) bilateral [place] (35929) 729.5, - Foot pain, bilateral 729.5] Residual Patient's 07-18-2019 - Episodic Active ISAK EDWARDS [facility] Via codes; noncompliance DO [place]ati unclassified with other Hospital - (11 sources.) medical [place] treatment and (44376) regimen Residual Patient's 07-18-2019 - Episodic Active KEVIN BURKER [facility] Via codes; rupa Parikh unclassified noncompliance Hospital - (4 sources.) with [place] medication (00911) regimen Poisoning by Poisoning by 07-18-2019 - Episodic Active KRISTINA WATERMAN , [facility] Via psychotropic benzodiazepine MD Parikh agents (5 s, accidental Hospital - sources.) (unintentional [place] ), initial (81641) encounter Other nervous Polyneuropathy Chronic Active YVES BLEVINS Community system in diseases [address] [facility] disorders (20 classified of [place] sources.) elsewhere [place] (53795) Translations: [ - Polyneuropathy in diseases classified elsewhere G63, - Polyneuropathy in diseases classified elsewhere G63] Residual Procedure and 07-18-2019 - Episodic Active KRISTINA Diane , [facility] Via codes; treatment not MD Parikh unclassified carried out Hospital - (8 sources.) due to patient [place] leaving prior (78599) to being seen by health care provider Other lower Shortness of Episodic Active YVES BLEVINS Com munity respiratory breath 60620 [facility] disease (20 Translations: of [facility] sources.) [ - Shortness [place] (02122) of breath R06.02, - Shortness of breath R06.02] Infective Subacute 07-18-2019 - Chronic Active no name no i nformation arthritis and osteomyelitis, osteomyelitis right ankle (except that and foot caused by Translations: tuberculosis [ ACUTE or sexually OSTEOMYELITIS transmitted INVOLVING disease) (20 ANKLE AND sources.) FOOT, OSTEOMYELITIS, UNSPECIFIED] Suicide and Suicidal 07-18-2019 - Episodic Active ISAK EDWARDS [facility] Via intentional ideation DO Parikh self-inflicted Translations: Hospital - injury (21 [ POISONING BY [place] sources.) TRICYCLIC (70262) ANTIDEPRESSANT S, , POISONING BY CANNABIS (DERIVATIVES), CASSIUS, POISONING BY OTH OPIOIDS, INTENTIONAL SE, POISONING BY AMPHETAMINES, INTENTIONAL S, PERSONAL HISTORY OF SELF-HARM] NEGATED Type 2 no information Active no name no infor mation no diabetes information mellitus with (23 sources.) foot ulcer Translations: [ TYPE 2 DIABETES MELLITUS WITH DIABETIC P, TYPE 2 DIABETES MELLITUS WITH DIABETIC N] Asthma (5 Unspecified 07-26-2019 - Chronic Active ANSELMO Morse [facility] Via sources.) asthma, MD Parikh uncomplicated [facility] - [place] (50079) Hepatitis (5 Unspecified 07-26-2019 - Episodic Active ANSELMO LAN [facility] Via sources.) viral MD Parikh hepatitis C [facility] hepatic coma (46586) Other diseases Venous 07-18-2019 - Episodic Active KRISTINA SALMERON LT [facility] Via of veins and insufficiency MD Parikh lymphatics (13 (chronic) Hospital - sources.) (peripheral) [place] (16255) Other lower Wheezing Episodic Active YVES Wheeler ty respiratory Translations: [address] [facility] disease (20 [ - Wheezing of [place] sources.) 786.07, - [place] (52880) Wheezing 786.07] Past or Other Problems Problem Normalized Date of Normalized Normalized Provider Fac ility Classification Problem(s) Problem Problem Problem Sta tus Onset/Resoluti Duration on External Accidental no information no information YULI N ot Available Injury - poisoning by GOSSMAN (08547) Poisoning (1 anticonvulsant source.) and anti-parkinson ism drugs External cause Accidents no information no information TYGHE NI ELSEN Not Available codes: caused by , (38632) Cut/mueller (2 other sources.) specified cutting and piercing instruments or objects External cause Accidents no information no information TYYANNICKE VERN [place] Not Available codes: Place occurring in , (30848) of occurrence residential (2 sources.) institution Unclassified Acute no information no information ALEJANDRO CAT Hospital (4 sources.) pancreatitis [facility] of without [facility] or County ([address]4738) infection, unspecified External cause Fall (on) no information no information PAULETTE EUSEBIO [facility] Via codes: Fall (5 (from) other [place]ati sources.) stairs and Hospital - steps, initial [place] encounter (75970) External cause Other external no information no information GUERLINE TRAORE Not Available codes: cause status , (14225) Unspecified (2 sources.) Attention-defi Other symptoms no information no information Veronica EDWARDS , [facility] Via cit conduct and signs DO Kati and disruptive involving Hospital - behavior appearance and [place] disorders (1 behavior (07434) source.) Poisoning by Poisoning by no information no information KRISTINA WATERMAN , [facility] Via psychotropic benzodiazepine MD Parikh agents (8 s, accidental Hospital - sources.) (unintentional [place] ), initial (11408) encounter Poisoning by Poisoning by Episodic Completed YULI Not Av ailable other other and GOSSMAN (92949) medications unspecified and drugs (1 anticonvulsant source.) s Suicide and Poisoning by no information no information ISAK GA RNER , [facility] Via intentional tricyclic DO Kati self-inflicted antidepressant Hospital - injury (28 s, intentional [place] sources.) self-harm, (37096) initial encounter Translations: [ POISONING BY CANNABIS (DERIVATIVES), CASSIUS, POISONING BY OTH OPIOIDS, INTENTIONAL SE, POISONING BY AMPHETAMINES, INTENTIONAL S] Procedures Procedure Normalized Procedure Procedure Result Performer Facility Date 01-27-2019 DETACHMENT AT RIGHT no information no name (no phon e) [facility] Via Kati 1ST TOE, MID, OPEN A [facility] (55070) 01-06-2018 [facility] visit, estab pt no information no name (no pamela ne) [facility] (18038) 12-31-2017 [facility] visit, estab pt no information no name (no pamela ne) [facility] (76542) 11-26-2017 [facility] visit, estab pt no information no name (no pamela ne) [facility] (36166) 10-01-2017 [facility] visit, estab pt no information no name (no pamela ne) [facility] (73058) 09-01-2017 [facility] visit, estab pt no information no name (no pamela ne) [facility] (06082) 10-01-2017 Gluc bld gluc mntr dev no information no name (no p kathy) [facility] cleared fda spec home [facility] (80700) 10-01-2017 Hemoglobin no information no name (no phone) [facility] glycosylated a1c [facility] (80067) 09-15-2018 INSERTION OF no information no name (no phone) [facility] Via Kati ENDOTRACHEAL AIRWAY [facility] INTO TR (50708) INSERTION OF no information no name (no phone) [facility] Via Chr isti ENDOTRACHEAL AIRWAY [facility] INTO (99827) 09-18-2017 INSERTION OF INFUSION no information no name (no ph one) [facility] Via Kati DEV INTO [facility] (53203) INSERTION OF INFUSION no information no name (no phone) [facility] Via Kati DEV INTO [facility] (01254) 09-15-2018 RESPIRATORY no information no name (no phone) [facility] Via Kati VENTILATION, LESS THAN [facility] 24 CO (20409) RESPIRATORY no information no name (no phone) [facility] Via Chr isti VENTILATION, LESS THAN [facility] [address] [place] (25092) Immunizations Normalized Immunization Date Notes Care Provider Facili ty Immunization hepatitis A and 03-21-2019 no information no name [facility] hepatitis B vaccine [facility] (09083) hepatitis A and 02-09-2019 no information no name [facility] hepatitis B vaccine [facility] (86195) influenza, seasonal, 02-09-2019 no information no name [facility] injectable [facility] (97782) pneumococcal 02-09-2019 no information no name [facility] polysaccharide [facility] vaccine, 23 [facility] (98686) tetanus toxoid, 12-25-2016 no information no name Not Tania ilable reduced diphtheria (00930) toxoid, and acellular pertussis vaccine, adsorbed Results Test Name Value Interpretation Reference Range Date Time Fa cility (Normalized) (Normalized) (Medline Reference) No panel information on 2019-05-16 Albumin 4.5 g/dL (N) 3.4 - 5.4 g/dL [facility] [Mass/Vol] [facility] (75854) Albumin/Globulin 1.8 {ratio} (N) 1 - 2.5 {ratio} Comm [facility] [Mass ratio] [facility] () ALP [Catalytic 93 U/L (N) 44 - 147 U/L [facility] Health activity/Vol] [facility] (64588) ALT [Catalytic 11 U/L (N) 4 - 40 U/L Community ealth activity/Vol] [facility] (32482) AST [Catalytic 14 U/L (N) 10 - 34 U/L [facility] Health activity/Vol] [facility] (98525) Basophils (Bld) 0.062 10*3/uL (N) 0 - 0.3 10*3/uL [facility] [#/Vol] [facility] (93100) Basophils/100 0.8 % (N) 0.5 - 1 % Community He alth WBC (Bld) [facility] (91553) Bilirubin 0.4 mg/dL (N) 0.1 - 1.2 mg/dL [facility] [Mass/Vol] [facility] (63896) Calcium 9.8 mg/dL (N) 8.5 - 10.2 mg/dL [facility] [Mass/Vol] [facility] (99279) Chloride 96 mmol/L (L) 95 - 106 mmol/L [facility] [Moles/Vol] [facility] (33565) CO2 [Moles/Vol] 28 mmol/L (N) 23 - 29 mmol/L [facility] (60664[facility] Creatinine 0.76 mg/dL (N) [facility] Healt h [Mass/Vol] [facility] (91715) Eosinophils 0.123 10*3/uL (N) 0.05 - 0.5 Community [facility] alth (Bld) [#/Vol] 10*3/uL [facility] (16703) Eosinophils/100 1.6 % (N) 1 - 4 % [facility] WBC (Bld) [facility] (62299) Erythrocyte 12.9 % (N) 11.6 - 14.6 % [facility] ealth distribution Center [facility] (RBC) [facility] [Ratio] (72298) GFR/1.73 sq M 128 (N) 90 - 120 [facility] He alth predicted among mL/min/{1.73_m2} mL/min/{1.73_m2} [facility] blacks MDRD [facility] (S/P/Bld) [Vol (84158) rate/Area] GFR/1.73 sq 110 (N) 90 - 120 [facility] Heal th M.predicted MDRD mL/min/{1.73_m2} mL/min/{1.73_m2} [facility] (S/P/Bld) [Vol [facility] rate/Area] (07235) Globulin (S) 2.5 g/dL (N) 2 - 3.5 g/dL [facility] [Mass/Vol] [facility] (06569) Glucose 127 mg/dL (N) 60 - 125 mg/dL [facility] [Mass/Vol] [facility] (09023) HCV RNA <1.18 NOT (N) [facility] GAGANDEEP+probe [Log DETECTED [facility] units/Vol] [facility] (30060) HCV RNA <15 NOT DETECTED (N) [facility] GAGANDEEP+probe Qn [facility] (62232) Hematocrit (Bld) 44.1 % (N) 36.1 - 50.3 % [facility] [Volume [facility]] [facility] (15876) Hemoglobin (Bld) 15.2 g/dL (N) 12.1 - 17.2 g/dL [facility] [Mass/Vol] [facility] (83144) Lymphocytes 1.602 10*3/uL (N) 0.9 - 2.9 [facility] He alth (Bld) [#/Vol] 10*3/uL [facility] (41189) Lymphocytes/100 20.8 % (N) 20 - 40 % [facility] Health WBC (Bld) [facility] (64201) MCH (RBC) 33.9 pg (H) 27 - 31 pg [facility] [Entitic mass] [facility] (49030) MCHC (RBC) 34.5 g/dL (N) 32 - 36 g/dL [facility] He alth [Mass/Vol] [facility] (53667) MCV (RBC) 98.4 fL (N) 80 - 100 fL [facility] Hea lth [Entitic vol] [facility] (75059) Monocytes (Bld) 0.878 10*3/uL (N) 0.3 - 0.9 [facility] Health [#/Vol] 10*3/uL [facility] (56458) Monocytes/100 11.4 % (N) 2 - 8 % [facility] alth WBC (Bld) [facility] (41359) Neutrophils 5.036 10*3/uL (N) 1.7 - 7 10*3/uL [facility] (Bld) [#/Vol] [facility] (50914) Neutrophils/100 65.4 % (N) 40 - 60 % [facility] WBC (Bld) [facility] (37391) Platelet mean 10.3 fL (N) 7.2 - 11.7 fL [facility] Health volume (Bld) [facility] [Entitic vol] [facility] (73462) Platelets (Bld) 237 10*3/uL (N) 150 - 450 [facility] Health [#/Vol] 10*3/uL [facility] (43213) Potassium 4.8 mmol/L (N) 3.7 - 5.2 mmol/L [facility] [Moles/Vol] [facility] (86746) Protein 7.0 g/dL (N) 6.4 - 8.3 g/dL [facility] [Mass/Vol] [facility] (81545) RBC (Bld) 4.48 10*6/uL (N) 4.2 - 6.1 [facility] Hea lth [#/Vol] 10*6/uL [facility] (52875) Sodium 131 mmol/L (L) 135 - 145 mmol/L [facility] [Moles/Vol] [facility] (65079) Urea nitrogen 8 mg/dL (N) 7 - 20 mg/dL [facility] [Mass/Vol] [facility] (92574) Urea NOT APPLICABLE (no code) [facility]in [facility] [Mass ratio] [facility] () WBC (Bld) 7.7 10*3/uL (N) 3.5 - 10.5 [facility] Heal th [#/Vol] 10*3/uL [facility] (81730) No panel information on 2019-04-05 Exp date 12/2020 (no code) [facility] () Lot [id number] (no code) [facility] (56035) No panel information on 2019-03-21 Albumin 4.1 g/dL (N) 3.4 - 5.4 g/dL [facility] [Mass/Vol] [facility] (66464) Albumin/Globulin 1.5 {ratio} (N) 1 - 2.5 {ratio} Comm [facility] [Mass ratio] [facility] (75333) ALP [Catalytic 80 U/L (N) 44 - 147 U/L [facility] Health activity/Vol] [facility] (41713) ALT [Catalytic 12 U/L (N) 4 - 40 U/L [facility] ealth activity/Vol] [facility] (79544) AST [Catalytic 15 U/L (N) 10 - 34 U/L [facility] Health activity/Vol] [facility] (03715) Basophils (Bld) 0.06 10*3/uL (N) 0 - 0.3 10*3/uL [facility] [#/Vol] [facility] (49389) Basophils/100 0.9 % (N) 0.5 - 1 % [facility] WBC (Bld) [facility] (65844) Bilirubin 0.6 mg/dL (N) 0.1 - 1.2 mg/dL [facility] [Mass/Vol] [facility] (62171) Calcium 9.4 mg/dL (N) 8.5 - 10.2 mg/dL [facility] [Mass/Vol] [facility] (64272) Chloride 93 mmol/L (L) 95 - 106 mmol/L [facility] [Moles/Vol] [facility] (01513) CO2 [Moles/Vol] 29 mmol/L (N) 23 - 29 mmol/L [facility] (65412) Creatinine 0.71 mg/dL (N) [facility] [Mass/Vol] [facility] (50907) Eosinophils 0.201 10*3/uL (N) 0.05 - 0.5 [facility] alth (Bld) [#/Vol] 10*3/uL [facility] (53137) Eosinophils/100 3.0 % (N) 1 - 4 % [facility] WBC (Bld) [facility] (62033) Erythrocyte 12.5 % (N) 11.6 - 14.6 % [facility] ealth distribution [facility] (RBC) [facility] [Ratio] (90221) GFR/1.73 sq M 131 (N) 90 - 120 [facility] alth predicted among mL/min/{1.73_m2} mL/min/{1.73_m2} [place] MDRD [facility] (S/P/Bld) [Vol (61094) rate/Area] GFR/1.73 sq 113 (N) 90 - 120 [facility] Heal th M.predicted MDRD mL/min/{1.73_m2} mL/min/{1.73_m2} [facility] (S/P/Bld) [Vol [facility] rate/Area] (41661) Globulin (S) 2.7 g/dL (N) 2 - 3.5 g/dL [facility] ealth [Mass/Vol] [facility] (96711) Glucose 106 mg/dL (H) 60 - 125 mg/dL [facility] [Mass/Vol] [facility] (94471) HCV RNA <1.18 NOT (N) [facility] GAGAN[facility]EP+probe [Log DETECTED [facility] units/Vol] [facility] (60265) HCV RNA <15 NOT DETECTED (N) [facility] Hea lth GAGANDEEP+probe Qn [facility] (23444) Hematocrit (Bld) 41.1 % (N) 36.1 - 50.3 % [facility] ity [facility] [Volume [facility]] [facility] (94589) Hemoglobin (Bld) 14.7 g/dL (N) 12.1 - 17.2 g/dL [facility] [Mass/Vol] [facility] (66528) Lymphocytes 2.774 10*3/uL (N) 0.9 - 2.9 [facility] He alth (Bld) [#/Vol] 10*3/uL [facility] (12040) Lymphocytes/100 41.4 % (N) 20 - 40 % [facility] WBC (Bld) [facility] (41304) MCH (RBC) 34.3 pg (H) 27 - 31 pg [facility] th [Entitic mass] [facility] (21421) MCHC (RBC) 35.8 g/dL (N) 32 - 36 g/dL [facility] He alth [Mass/Vol] [facility] (65512) MCV (RBC) 96.0 fL (N) 80 - 100 [facility] [[facility] (48670) Monocytes (Bld) 0.864 10*3/uL (N) 0.3 - 0.9 [facility] Health [#/Vol] 10*3/uL [facility] (45753) Monocytes/100 12.9 % (N) 2 - 8 % [facility] He alth WBC (Bld) [facility] (82712) Neutrophils 2.801 10*3/uL (N) 1.7 - 7 10*3/uL [facility] (Bld) [#/Vol] [facility] (05687) Neutrophils/100 41.8 % (N) 40 - 60 % [facility] WBC (Bld) [facility] (42999) Platelet mean 10.1 fL (N) 7.2 - 11.7 fL [facility] volume (Bld) [facility] [Entitic vol] [facility] (52213) Platelets (Bld) 274 10*3/uL (N) 150 - 450 [facility] [#/Vol] 10*3/uL [facility] (24915) Potassium 5.1 mmol/L (N) 3.7 - 5.2 mmol/L [facility] [Moles/Vol] [facility] (67059) Protein 6.8 g/dL (N) 6.4 - 8.3 g/dL [facility] [Mass/Vol] [facility] (76772) RBC (Bld) 4.28 10*6/uL (N) 4.2 - 6.1 [facility] [#/Vol] 10*6/uL [facility] (68221) Sodium 130 mmol/L (L) 135 - 145 mmol/L [facility] [Moles/Vol] [facility] (70716) Urea nitrogen 12 mg/dL (N) 7 - 20 mg/dL [facility] [Mass/Vol] [facility] (84330) Urea NOT APPLICABLE (no code) [facility] nitrogen/Creatin [facility] [Mass ratio] [facility] (14668) WBC (Bld) 6.7 10*3/uL (N) 3.5 - 10.5 [facility] th [#/Vol] 10*3/uL [facility] (03627) No panel information on 2019-03-14 C. trachomatis NOT DETECTED (N) [facility] rRNA GAGANDEEP+probe [facility] (Unsp spec) [facility] (20457) COMMENT no information (no code) [facility] (11348) Control no information (no code) [facility] (40212) Exp date 02/27 (no code) [facility] (73046) Lot # [id number] (no code) [facility] (96874) N. gonorrhoeae NOT DETECTED (N) [facility] rRNA GAGANDEEP+probe [facility] (Unsp spec) [facility] (99606) No panel information on 2019-02-21 6-Monoacetylmorp no information (N) [facility] [place] (6-NARDA) Ql [facility] (U) [facility] (94393) Amphetamine (U) no information (N) [facility] [Mass/Vol] [facility] (49105) Amphetamines Ql no information (N) [facility] (U) [facility] (84292) Benzodiazepines no information (N) [facility] Ql (U) [facility] (48743) Benzoylecgonine no information (N) [facility] Ql (U) [facility] (24711) Buprenorphine Ql no information (N) [facility] (U) [facility] (54161) Codeine (U) no information (N) [facility] [Mass/Vol] [facility] (30696) COMMENT no information (no code) [facility] (10417) Creatinine (U) 52.8 mg/dL (N) [facility] [Mass/Vol] [facility] (18577) Drug screen CONSISTENT (N) [facility] comment (U) [facility] [Inter] [facility] (86550) Drug screen See Note (A) [facility] comment (U) [facility] [[facility]] [facility] (11555) Ethanol Ql (U) no information (N) [facility] (22210) Ethyl no information (N) [facility] glucuronide (U) [facility] [Mass/Vol] [facility] (09136) Ethyl sulfate no information (N) [facility] (U) [Mass/Vol] [facility] (15245) Hydrocodone (U) no information (N) [facility] [Mass/Vol] [facility] (76173) Hydromorphone no information (N) [facility] (U) [Mass/Vol] [facility] (99570) Methamphetamine no information (N) [facility] (U) [Mass/Vol] [facility] (67987) Methylenedioxyme no information (N) [facility] thamphetamine [facility] (U) [facility] (27480) Morphine (U) no information (N) [facility] [Mass/Vol] [facility] (47552) Norhydrocodone 82 (H) [facility] Confirm (U) [facility] [Mass/Vol] [facility] (15048) Opiates Ql (U) no information (A) [facility] (87716) Oxidants Ql (U) no information (N) [facility] (10405) Oxycodone Ql (U) no information (N) [facility] (16041[facility] pH (U) 7.6 [pH] (N) 4.6 - 8 [pH] Community [facility] (19435) Prescribed Drug Tramadol (no code) Community [facility] 1 [facility] (87626) Tetrahydrocannab no information (N) Community [facility] lt inol Ql (U) [facility] (28553) No panel information on 2019-02-02 6-Monoacetylmorp no information (N) [facility] (6-NARDA) [facility] (U) [facility] (50621) Amphetamine (U) no information (N) Critical access hospital [Mass/Vol] [facility] (88569) Amphetamines Ql no information (N) [facility] (U) [facility] (12994) Benzodiazepines no information (N) [facility] Ql (U) [facility] (77603) Benzoylecgonine no information (N) [facility] Ql (U) [facility] (41873) Buprenorphine Ql no information (N) [facility] (U) [facility] (46169) Codeine (U) no information (N) [facility] [Mass/Vol] [facility] (52740) COMMENT no information (no code) [facility] (56020) COMMENT no information (no code) [facility] (65525) Creatinine (U) 96.4 mg/dL (N) [facility] [Mass/Vol] [facility] (61361) Drug screen CONSISTENT (N) [facility] comment (U) [facility] [Inter] [facility] (67315) Drug screen CONSISTENT (N) [facility] comment (U) [place] [facility] [[facility]] [facility] (33079) Drug screen INCONSISTENT (A) [facility] comment (U) [facility] [[facility]] [facility] (89513) Drug screen See Note (A) [facility] comment (U) [facility] [[facility]] [facility] (62574) Ethanol Ql (U) no information (N) [facility] (79323) Hydrocodone (U) 550 (H) [facility] [Mass/Vol] [facility] (78695) Hydromorphone 77 (H) [facility] (U) [Mass/Vol] [facility] (18686) Methamphetamine no information (N) [facility] (U) [Mass/Vol] [facility] (88446) Methylenedioxyme no information (N) [facility] th[facility] Ql [place] [facility] (U) [facility] (95846) Morphine (U) 96 (H) [facility] [Mass/Vol] [facility] (67813) Norhydrocodone 516 (H) [facility] Confirm (U) Center [facility] [Mass/Vol] [facility] (15971) Noroxycodone 3776 (H) [facility] Confirm (U) [facility] [Mass/Vol] [facility] (60965) Opiates Ql (U) no information (A) [facility] (37350) Oxidants Ql (U) no information (N) [facility] (56505) Oxycodone (U) 1148 (H) [facility] [Mass/Vol] [facility] (19191) Oxycodone Ql (U) no information (A) [facility] (76936) Oxymorphone (U) 572 (H) Critical access hospital [Mass/Vol] [facility] (58991) pH (U) 7.1 [pH] (N) 4.6 - 8 [pH] [facility] (21613) Prescribed Drug Oxycodone (no code) [facility] hospital 1 [facility] (54871) Prescribed Drug Oxycodone (no code) [facility] hospital 1 [facility] (13954) Tetrahydrocannab no information (N) [facility] inol Ql (U) [facility] () No panel information on 2019-01-14 6-Monoacetylmorp no information (no code) [facility] fernando (6-NARDA) Ql [facility] ([facility]ly [facility] () [id number] 300 (H) [facility] bulin [Mass/Vol] [facility] (04257) ALT [Catalytic 76 U/L (H) 4 - 40 U/L [facility] ealth activity/Vol] [facility] (51912) Amphetamine (U) no information (no code) [facility] access hospital [Mass/Vol] [facility] (16612) Amphetamines Ql no information (no code) Critical access hospital (U) [facility] (41702) Apolipoprotein 181 (H) [facility] A-I [Mass/Vol] [facility] (56233) Benzodiazepines no information (no code) Critical access hospital Ql (U) [facility] (87545) Benzoylecgonine no information (no code) Critical access hospital Ql (U) [facility] (43036) Bilirubin 0.6 mg/dL (no code) 0.1 - 1.2 mg/dL [facility] [Mass/Vol] [facility] (73134) Buprenorphine Ql no information (no code) [facility] (U) [facility] (33202) COMMENT no information (no code) [facility] (75471) COMMENT no information (no code) [facility] (87830) Creatinine (U) 42.9 mg/dL (no code) [facility] [Mass/Vol] [facility] (17406) Drug screen CONSISTENT (no code) [facility] comment (U) [facility] [Interp] [facility] (05916) Ethanol Ql (U) no information (no code) [facility] (21630) Fibrosis stage F1-F2 (no code) [facility] (74147) FOOTNOTE SEE NOTE (no code) [facility] (01732) Gamma glutamyl 67 U/L (no code) 0 - 30 U/L [facility] ealth transferase [facility] [Catalytic [facility] activity/Vol] (92217) Haptoglobin 162 mg/dL (no code) 41 - 165 mg/dL [facility] [Mass/Vol] [facility] (52797) HAV IgM IA Ql NON-REACTIVE (N) [facility] (28473) HBV core IgM IA NON-REACTIVE (N) [facility] (04281) HBV surface Ag NON-REACTIVE (N) [facility] IA [facility] (67603) HCV Ab IA Ql REACTIVE (A) [facility] (25092) HCV Ab 27.40 {ratio} (H) 0 - 3 {ratio} [facility] Signal/Cutoff IA [facility] [Rel units/Vol] [facility] (40153) HCV genotype 1a (no code) [facility] GAGANDEEP+probe Nom [facility] (04070) HCV RNA 6.58 (H) [facility] GAGANDEEP+probe [Log [facility] units/Vol] [facility] (04286) HCV RNA [id number] (H) [facility] GAGANDEEP+probe Qn [facility] (12203) HIV 1+2 Ab+HIV1 NON-REACTIVE (N) Critical access hospital p24 Ag IA Ql [facility] (76500) INR Coag (PPP) 1.2 {INR} (H) 0.9 - 1.1 {INR} [facility] [Relative time] [facility] (50879) Liver fibrosis SEE NOTE (no code) [facility] interpretation [facility] (S) [Interp] [facility] (71080) Liver fibrosis 0.35 (no code) [facility] score Calculated [facility] by [employer] [facility] [Score] (93616) Methamphetamine no information (no code) Critical access hospital (U) [Mass/Vol] [facility] (36477) Methylenedioxyme no information (no code) [facility] thamphetamine [facility] (U) [facility] (24184) Necroinflamm SEE NOTE (no code) [facility] activity [facility] Ql (S) [Interp] (19181) Necroinflammator A1-A2 (no code) [facility] y activity grade [facility] (13416) Necroinflammator 0.47 (no code) [facility] y activity score [facility] [Score] [facility] (64213) Opiates Ql (U) no information (no code) [facility] (99985) Oxidants Ql (U) no information (no code) [facility] (18279) Oxycodone Ql (U) no information (no code) [facility] (25431) pH (U) 7.03 [pH] (no code) 4.6 - 8 [pH] [facility] (12337) Prescribed Drug Tramadol (no code) Critical access hospital 2 [facility] (21071) PT Coag (PPP) 12.1 s (H) 9.4 - 12.5 s [facility] [Time] [facility] (55631) REFERENCE ID [id number] (no code) [facility] (11968) Tetrahydrocannab no information (no code) [facility] inol Ql (U) [facility] (09013) No panel information on 2018-12-28 6-Monoacetylmorp no information (no code) [facility] fernando (6-NARDA) [facility] (U) [facility] (22877) Amphetamine (U) no information (no code) Critical access hospital [Mass/Vol] [facility] (50064) Amphetamines Ql no information (no code) [facility] th (U) [facility] (44232) Benzodiazepines no information (no code) [facility] access hospital Ql (U) [facility] (88433) Benzoylecgonine no information (no code) Critical access hospital Ql (U) [facility] (62025) Buprenorphine Ql no information (no code) [facility] (U) [facility] (98031) COMMENT no information (no code) [facility] (41785) Creatinine (U) 80.9 mg/dL (no code) [facility] [Mass/Vol] [facility] (00979) Drug screen CONSISTENT (no code) [facility] comment (U) [facility] [Interp] [facility] (62744) Ethanol Ql (U) no information (no code) [facility] (31428) Methamphetamine no information (no code) Critical access hospital (U) [Mass/Vol] [facility] (34332) Methylenedioxyme no information (no code) [facility] thamphetamine [facility] (U) [facility] (55950) Opiates Ql (U) no information (no code) [facility] (68881) Oxidants Ql (U) no information (no code) [facility] (67587) Oxycodone Ql (U) no information (no code) [facility] (87314) pH (U) 6.92 [pH] (no code) 4.6 - 8 [pH] [facility] (29708) Tetrahydrocannab no information (no code) [facility] Hea lth inol Ql (U) [facility] () No panel information on 2018-12-14 Albumin 4.4 g/dL (N) 3.4 - 5.4 g/dL [facility] [Mass/Vol] [facility] () Albumin/Globulin 1.8 {ratio} (N) 1 - 2.5 {ratio} Comm [facility] [Mass ratio] [facility] () ALP [Catalytic 78 U/L (N) 44 - 147 U/L [facility] Health activity/Vol] [facility] () ALT [Catalytic 70 U/L (H) 4 - 40 U/L [facility] ealth activity/Vol] [facility] () Amphetamines Ql no information (no code) Critical access hospital (U) [facility] () AST [Catalytic 58 U/L (H) 10 - 34 U/L [facility] activity/Vol] [facility] () Barbiturates Ql no information (no code) Critical access hospital (U) [facility] () Basophils (Bld) 0.07 10*3/uL (N) 0 - 0.3 10*3/uL [facility] [#/Vol] [facility] () Basophils/100 1.2 % (N) 0.5 - 1 % [facility] He alth WBC (Bld) [facility] () Benzodiazepines no information (no code) Critical access hospital Ql (U) [facility] (29223) Benzoylecgonine no information (no code) Critical access hospital Ql (U) [facility] (35078) Bilirubin 0.6 mg/dL (N) 0.1 - 1.2 mg/dL [facility] [Mass/Vol] [facility] (55444) Calcium 9.4 mg/dL (N) 8.5 - 10.2 mg/dL [facility] [Mass/Vol] [facility] (71086) Chloride 93 mmol/L (L) 95 - 106 mmol/L [facility] [Moles/Vol] [facility] (17189) CO2 [Moles/Vol] 28 mmol/L (N) 23 - 29 mmol/L Commun ity [facility] (14457) COMMENT no information (no code) [facility] (46505) Creatinine (U) 63.9 mg/dL (no code) [facility] [Mass/Vol] [facility] (70793) Creatinine 0.71 mg/dL (N) [facility] [Mass/Vol] [facility] (89652) Drug screen CONSISTENT (no code) [facility] comment (U) [facility] [Interp] [facility] ([id number]) Eosinophils 0.128 10*3/uL (N) 0.05 - 0.5 [facility] alth (Bld) [#/Vol] 10*3/uL [facility] (46688) Eosinophils/100 2.2 % (N) 1 - 4 % [facility] WBC (Bld) [facility] (49631) Erythrocyte 12.8 % (N) 11.6 - 14.6 % [facility] ealth distribution [facility] (RBC) [facility] [Ratio] (83418) GFR/1.73 sq M 131 (N) 90 - 120 [facility] alth predicted among mL/min/{1.73_m2} mL/min/{1.73_m2} [facility] [place] MDRD [facility] (S/P/Bld) [Vol (69850) rate/Area] GFR/1.73 sq 113 (N) 90 - 120 [facility] Heal th M.predicted MDRD mL/min/{1.73_m2} mL/min/{1.73_m2} [facility] (S/P/Bld) [Vol [facility] rate/Area] (54885) Globulin (S) 2.5 g/dL (N) 2 - 3.5 g/dL [facility] ealth [Mass/Vol] [facility] (30540) Glucose 81 mg/dL (N) 60 - 125 mg/dL [facility] [Mass/Vol] [facility] (94862) Hematocrit (Bld) 38.2 % (L) 36.1 - 50.3 % [facility] [Volume [facility] (70031) Hemoglobin (Bld) 13.3 g/dL (N) 12.1 - 17.2 g/dL [facility] Health [Mass/Vol] [facility] (97530) Lymphocytes 2.558 10*3/uL (N) 0.9 - 2.9 [facility] (Bld) [#/Vol] 10*3/uL [facility] (47561) Lymphocytes/100 44.1 % (N) 20 - 40 % [facility] WBC (Bld) [facility] (61851) MCH (RBC) 33.4 pg (H) 27 - 31 pg [facility] th [Entitic mass] [facility] (90689) MCHC (RBC) 34.8 g/dL (N) 32 - 36 g/dL [facility] He alth [Mass/Vol] [facility] (86320) MCV (RBC) 96.0 fL (N) 80 - 100 fL [facility] Hea lt [Entitic vol] [facility] (56208) Methadone Ql (U) no information (no code) [facility] Hea lth [facility] (10261) Monocytes (Bld) 1.125 10*3/uL (H) 0.3 - 0.9 [facility] [#/Vol] 10*3/uL [facility] (67169) Monocytes/100 19.4 % (N) 2 - 8 % [facility] He alth WBC (Bld) [facility] (53678) Neutrophils 1.92 10*3/uL (N) 1.7 - 7 10*3/uL [facility] (Bld) [#/Vol] [facility] (79942) Neutrophils/100 33.1 % (N) 40 - 60 % [facility] WBC (Bld) [facility] (03776) Opiates Ql (U) no information (no code) [facility] Healt h [facility] (02275) Oxidants Ql (U) no information (no code) [facility] (49960) Oxycodone Ql (U) no information (no code) [facility] (78090) pH (U) 6.91 [pH] (no code) 4.6 - 8 [pH] [facility] (26052) Phencyclidine Ql no information (no code) [facility] lt (U) [facility] (29227) Platelet mean 9.7 fL (N) 7.2 - 11.7 fL [facility] volume (Bld) [facility] [Entitic vol] [facility] (88749) Platelets (Bld) 215 10*3/uL (N) 150 - 450 [facility] [#/Vol] 10*3/uL [facility] (79003) Potassium 4.5 mmol/L (N) 3.7 - 5.2 mmol/L [facility] [Moles/Vol] [facility] (12922) Prescribed Drug Tramadol (no code) Critical access hospital 1 [facility] (57713) Protein 6.9 g/dL (N) 6.4 - 8.3 g/dL [facility] [Mass/Vol] [facility] (97257) RBC (Bld) 3.98 10*6/uL (L) 4.2 - 6.1 [facility] [#/Vol] 10*6/uL [facility] (99552) Sodium 128 mmol/L (L) 135 - 145 mmol/L [facility] [Moles/Vol] [facility] (44940) Tetrahydrocannab no information (no code) [facility] inol Ql (U) [facility] (32716) Urea nitrogen 12 mg/dL (N) 7 - 20 mg/dL [facility] [Mass/Vol] [facility] (18793) Urea NOT APPLICABLE (no code) [facility] nitrogen/Creatin [facility] [Mass ratio] [facility] (61700) WBC (Bld) 5.8 10*3/uL (N) 3.5 - 10.5 Critical access hospital [#/Vol] 10*3/uL [facility] (40330) No panel information on 2018-10-29 Amphetamines Ql no information (no code) [facility] th (U) [facility] (86372) Barbiturates no information (no code) [facility] (15974) Benzodiazepines no information (no code) [facility] th Ql (U) [facility] (40489) Benzoylecgonine no information (no code) Critical access hospital Ql (U) [facility] (69111) COMMENT no information (no code) [facility] (77475) Creatinine (U) 48.2 mg/dL (no code) [facility] [Mass/Vol] [facility] (70550) Exp date 07/2020 (no code) [facility] (36708) Lot [id number] (no code) [facility] (00392) medMATCH CONSISTENT (no code) [facility] Amphetamines [facility] (94334) medMATCH CONSISTENT (no code) [facility] Barbiturates [facility] (48585) medMATCH CONSISTENT (no code) [facility] Benzodiazepines [facility] (28859) medMATCH Cocaine CONSISTENT (no code) [facility] Metab [facility] (16365) medMATCH CONSISTENT (no code) [facility] Marijuana Metab [facility] (73790) medMATCH CONSISTENT (no code) [facility] Methadone Metab [facility] (16971) medMATCH Opiates CONSISTENT (no code) [facility] (59775) medMATCH CONSISTENT (no code) [facility] Oxycodone [facility] (78354) medMATCH CONSISTENT (no code) [facility] Phencyclidine [facility] (39711) Methadone Ql (U) no information (no code) [facility] (76400) Opiates Ql (U) no information (no code) [facility] (26169) Oxidants Ql (U) no information (no code) [facility] (11176) Oxycodone Ql (U) no information (no code) [facility] (76922) pH (U) 6.98 [pH] (no code) 4.6 - 8 [pH] [facility] (15691) Phencyclidine Ql no information (no code) [facility] lt (U) [facility] (48419) Tetrahydrocannab no information (no code) [facility] inol Ql (U) [facility] (49399) Valproate 56.9 (N) [facility] [Mass/Vol] [facility] (59309) No panel information on 2018-10-22 Exp date no information (no code) [facility] (85281) No panel information on 2018-10-11 Lot # [id number] (no code) [facility] (52336) TCA Dec (no code) [facility] 2019~+~Negative~ [facility] Negative~Negativ [facility] e~POSITIVE~Negat (54683) moustapha~Negative~Neg ative~Negative~N egative~Negative ~Negative~Negati ve~N/A No panel information on 2018-10-05 Amphetamines Ql no information (no code) Critical access hospital (U) [facility] (03456) Barbiturates Ql no information (no code) Critical access hospital (U) [facility] (37700) Benzodiazepines no information (no code) Critical access hospital Ql (U) [facility] (16856) Benzoylecgonine no information (no code) Critical access hospital Ql (U) [facility] (53349) COMMENT no information (no code) [facility] (64913) Creatinine (U) 30.9 mg/dL (no code) [facility] [Mass/Vol] [facility] (43080) medMATCH CONSISTENT (no code) [facility] Amphetamines [facility] (86244) medMATCH CONSISTENT (no code) [facility] Barbiturates [facility] (55096) medMATCH CONSISTENT (no code) [facility] Benzodiazepines [facility] (69152) medMATCH Cocaine CONSISTENT (no code) Community [facility] lt Metab [facility] (54811) medMATCH CONSISTENT (no code) [facility] Marijuana Metab [facility] (60330) medMATCH CONSISTENT (no code) [facility] Methadone Metab [facility] (42530) medMATCH Opiates CONSISTENT (no code) [facility] (88035) medMATCH CONSISTENT (no code) [facility] Oxycodone [facility] (15298) medMATCH CONSISTENT (no code) [facility] Phencyclidine [facility] (89267) Methadone Ql (U) no information (no code) [facility] (05642) Opiates Ql (U) no information (no code) [facility] (55196) Oxidants Ql (U) no information (no code) [facility] (65453) Oxycodone Ql (U) no information (no code) [facility] (49679) pH (U) 7.45 [pH] (no code) 4.6 - 8 [pH] [facility] (14825) Phencyclidine Ql no information (no code) [facility] lth (U) [facility] (97977) Tetrahydrocannab no information (no code) [facility] inol Ql (U) [facility] (92978) No panel information on 2018-09-28 Cholesterol 140 mg/dL (N) 180 - 200 mg/dL [facility] [Mass/Vol] [facility] (70599) Cholesterol in 57 mg/dL (N) [facility] HDL [Mass/Vol] [facility] (62094) Cholesterol in 65 mg/dL (N) 0 - 100 mg/dL [facility] LDL [Mass/Vol] [facility] (83120) Cholesterol non 83 mg/dL (N) Critical access hospital HDL [Mass/Vol] [facility] (13062) Cholesterol.tota 2.5 {ratio} (N) [facility] l/Cholesterol in [facility] HDL [Mass ratio] [facility] (35036) Lot # [id number] (no code) [facility] (52077) TCA Dec (no code) [facility] 2019~+~Negative~ [facility] Negative~Negativ [facility] e~POSITIVE~Negat (95835) moustapha~Negative~Neg ative~Negative~N egative~Negative ~Negative~Negati ve~N/A Triglyceride 99 mg/dL (N) 0 - 150 mg/dL [facility] [Mass/Vol] [facility] (18644) No panel information on 2018-07-02 Amphetamines Ql no information (no code) Critical access hospital (U) [facility] (01606) Barbiturates Ql no information (no code) Critical access hospital (U) [facility] (98698) Benzodiazepines no information (no code) Critical access hospital Ql (U) [facility] (85016) Benzoylecgonine no information (no code) Critical access hospital Ql (U) [facility] (32844) COMMENT no information (no code) [facility] (85102) Creatinine (U) 81.5 mg/dL (no code) [facility] [Mass/Vol] [facility] (05500) medMATCH CONSISTENT (no code) [facility] Amphetamines [facility] (17524) medMATCH CONSISTENT (no code) [facility] Barbiturates [facility] (06409) medMATCH CONSISTENT (no code) [facility] Benzodiazepines [facility] (96656) medMATCH Cocaine CONSISTENT (no code) [facility] (98148) medMATCH INCONSISTENT (no code) [facility] Marijuana Metab [facility] (50683) medMATCH CONSISTENT (no code) [facility] Methadone Metab [facility] (82170) medMATCH Opiates CONSISTENT (no code) [facility] (78449) medMATCH CONSISTENT (no code) [facility] Oxycodone [facility] (82285) medMATCH CONSISTENT (no code) [facility] Phencyclidine [facility] (61034) Methadone Ql (U) no information (no code) [facility] (15679) Opiates Ql (U) no information (no code) [facility] (99907) Oxidants Ql (U) no information (no code) [facility] (58180) Oxycodone Ql (U) no information (no code) [facility] (70330) pH (U) 7.20 [pH] (no code) 4.6 - 8 [pH] [facility] (30455) Phencyclidine Ql no information (no code) [facility] Hea lth (U) [facility] (59928) Tetrahydrocannab 670 (H) [facility] in[facility] (U) [facility] [Mass/Vol] [facility] (56104) Tetrahydrocannab no information (A) [facility] inol Ql (U) [facility] (75751) No panel information on 2018-05-27 COMMENT no information (no code) [facility] Healt [facility] (08285) HCV RNA 6.55 (H) [facility] GAGANDEEP+probe [Log [facility] units/Vol] [facility] (33720) HCV RNA 1890792 (H) [facility] GAGANDEEP+probe Qn [facility] (81712) No panel information on 2018-01-10 Amylase enzyme 20 U/L (no code) 40 - 140 U/L 01-10-2018 no i nformation act/vol 00:39-0400 No panel information on 2018-01-09 Albumin mass 4.7 g/dL (no code) 3.4 - 5.4 g/dL 01-09-2018 no i nformation conc 22:25-0400 ALP enzyme 97 U/L (no code) 44 - 147 U/L 01-09-2018 no infor mation act/vol 22:250400 ALT enzyme 40 U/L (no code) 4 - 40 U/L 01-09-2018 no informa tion act/vol 22:25-0400 AMP no information (no code) 01-09-2018 no informat ion 22:25-0400 Anion gap 3 22 mmol/L (H) 3 - 11 mmol/L 01-09-2018 no inf ormation molar conc 22:25-0400 AST enzyme 34 U/L (no code) 10 - 34 U/L 01-09-2018 no inform ation act/vol 22:250400 Bacteria LM.HPF no information (no code) 01-09-2018 no info rmation #/area (Urine 22:25-0400 sed) Barbiturates no information (no code) 01-09-2018 no informa tion Screen Ql (U) 22:25-0400 Basophils Auto 0.0 10*3/uL (no code) 0 - 0.3 10*3/uL 01-09-2018 Hospital #/vol (Bld) 22:25-0400 [facility] [address] [place] [address] (94839) Basophils/100 0.10 % (no code) 0.5 - 1 % 01-09-2018 Hospital WBC Auto (Bld) 22:25-0400 [facility] [address] [place] [address] ([id number]) Bilirubin Ql (U) no information (no code) 01-09-2018 no inf ormation 22:250400 Bilirubin Ql (U) 1.1 (no code) 01-09-2018 no inform ation 22:25-0400 BZO no information (no code) 01-09-2018 no informat ion 22:25-0400 Calcium mass 9.9 mg/dL (no code) 8.5 - 10.2 mg/dL 01-09-2018 no information conc 22:25-0400 Chloride molar 83 mmol/L (L) 95 - 106 mmol/L 01-09-2018 n o information conc 22:250400 Clarity Nom (U) Clear (no code) 01-09-2018 no informa tion :25040 CO2 molar conc 22 mmol/L (no code) 23 - 29 mmol/L 01-09-2018 no information 22:25-0400 MERARI no information (no code) 01-09-2018 no informat ion 22:25040 Color Nom (U) Yellow (no code) 01-09-2018 no informati on : Creatinine mass 0.76 mg/dL (no code) 01-09-2018 no informa tion conc 22:25-040 Eosinophils Auto 0.0 10*3/uL (no code) 0.05 - 0.5 01-09-2018 Ho spital #/vol (Bld) 10*3/uL 22:25-040 [facility] (48052) Eosinophils/100 0.0 % (no code) 1 - 4 % 01-09-2018 Hospit al WBC Auto (Bld) 22:25-040 [facility] (12644) Epithelial 0-5/HPF (A) 01-09-2018 no information cells.squamous 22:040 LM.HPF #/area (Urine sed) Erythrocyte 11.8 % (no code) 11.6 - 14.6 % 01-09-2018 Hospit al distribution 22:25-040 [facility] of width Auto Ratio [facility] (RBC) (68153) ETOH, Urine <10.00 (L) 01-09-2018 no information 22:25-0400 GFR/1.73 sq M 111 (no code) 90 - 120 01-09-2018 no infor mation predicted among mL/min/{1.73_m2} mL/min/{1.73_m2} 22:25-040 0 non-blacks MDRD vol rate/area (S/P/Bld) Globulin 3.4 g/dL (no code) 2 - 3.5 g/dL 01-09-2018 no inform ation Calculated mass :040 conc (S) Glucose mass 160 mg/dL (H) 60 - 125 mg/dL 01-09-2018 no i nformation conc 22:25-0400 Glucose. Trace (A) 01-09-2018 no information 22:25-0400 Hematocrit Auto 41.8 % (L) 36.1 - 50.3 % 01-09-2018 Ho spital Volume Fraction 22:25-0400 [facility] (Bld) [facility] (01573) Hemoglobin mass 15.7 g/dL (no code) 12.1 - 17.2 g/dL 01-09-2018 Hospital conc (Bld) 22:25-0400 [facility] (76503) Hemoglobin Test 1+ (A) 01-09-2018 no informa tion strip Ql (U) 22:25040 Icto N/A (A) 01-09-2018 no information 22:25040 Ketones mass Trace (A) 01-09-2018 no informatio n conc (U) 22:25-0400 Leukocyte no information (no code) 01-09-2018 no informat ion esterase Test 22: strip Ql (U) Lipase enzyme 59 U/L (no code) 10 - 73 U/L 01-09-2018 no inf ormation act/vol 22:250400 Lymphocytes Auto 0.98 10*3/uL (no code) 0.9 - 2.9 01-09-2018 Ho spital #/vol (Bld) 10*3/uL 22:25-0400 [facility] (61910) Lymphocytes/100 7.3 % (L) 20 - 40 % 01-09-2018 Hospit al WBC Auto (Bld) 22:25-0400 [facility] (74934) MCH Auto Entitic 33.6 pg (H) 27 - 31 pg 01-09-2018 Hosp ital mass (RBC) 22:25-0400 [facility] (89181) MCHC Auto mass 37.6 g/dL (H) 32 - 36 g/dL 01-09-2018 Hosp ital conc (RBC) 22:25-0400 [facility] (56077) MCV Auto Entitic 89.5 fL (no code) 80 - 100 fL 01-09-2018 Hos pital volume (RBC) 22:250400 [facility] (43827) MDMA no information (no code) 01-09-2018 no informat ion 22:25-0400 Monocytes Auto 1.8 10*3/uL (H) 0.3 - 0.9 01-09-2018 Hospi diane #/vol (Bld) 10*3/uL 22:25-0400 [facility] (82317) Monocytes/100 13.3 % (H) 2 - 8 % 01-09-2018 Hospital WBC Auto (Bld) 22:25-0400 [facility] (88464) Neutrophils Auto 10.61 10*3/uL (H) 1.7 - 7 10*3/uL 018 Hospital #/vol (Bld) 22:25-0400 [facility] (69601) Neutrophils/100 79.3 % (no code) 40 - 60 % 01-09-2018 Hospit al WBC Auto (Bld) 22:25-0400 [facility] (87755) Nitrite Test no information (no code) 01-09-2018 no informa tion strip Ql (U) 22:25-0400 OPI no information (no code) 01-09-2018 no informat ion 22:25-0400 Osmolality 256 mosm/kg (L) 275 - 295 01-09-2018 no inform ation mosm/kg 22:25-0400 OXY no information (no code) 01-09-2018 no informat ion 22:25-0400 pH Test strip 8.5 [pH] (no code) 4.6 - 8 [pH] 01-09-2018 no in formation (U) 22:25-0400 Phencyclidine Ql no information (no code) 01-09-2018 no inf ormation (U) 22:25-0400 Platelet mean 9.5 fL (no code) 7.2 - 11.7 fL 01-09-2018 Hosp ital volume Auto 22:25-0400 [facility] Entitic volume [facility] (d) (64434) Platelets Auto 202 10*3/uL (no code) 150 - 450 01-09-2018 Hospi diane #/vol (Bld) 10*3/uL 22:25-0400 [facility] (69343) Potassium molar 4.3 mmol/L (no code) 3.7 - 5.2 mmol/L 01-09-2018 no information conc 22:25-0400 PPX no information (no code) 01-09-2018 no informat ion 22:25-0400 Protein mass 8.1 g/dL (no code) 6.4 - 8.3 g/dL 01-09-2018 no i nformation conc 22:25-0400 Protein mass no information (no code) 0 - 20 mg/dL 01-09-2018 n o information conc (U) 22:25-0400 RBC Auto #/vol 4.67 10*6/uL (no code) 4.2 - 6.1 01-09-2018 Hosp ital (Bld) 10*6/uL 22:25-0400 [facility] [address] [place] [address] ([id number]) RBC LM.HPF 3-6/HPF (A) 01-09-2018 no information #/area (Urine 22:25-0400 sed) Sodium molar 123 mmol/L (L) 135 - 145 mmol/L 01-09-2018 n o information conc 22:25-0400 Specific gravity 1.015 (no code) 01-09-2018 no inform ation Relative Density 22:25-0400 (U) TCA no information (AA) 01-09-2018 no informat ion 22:25-0400 THC no information (AA) 01-09-2018 no informat ion 22:25-0400 Urea nitrogen 5 mg/dL (no code) 7 - 20 mg/dL 01-09-2018 no in formation mass conc 22:25-0400 Urine Volume Urine Volume (no code) 01-09-2018 no informati on Sufficient 22:25-0400 (10mL) Urobilinogen 1.0 (no code) 01-09-2018 no informatio n Test strip Qn 22:25-0400 (U) WBC Auto #/vol 13.38 10*3/uL (H) 3.5 - 10.5 01-09-2018 Ho spital (Bld) 10*3/uL 22:25-0400 [facility] [address] [place] [address] ([id number]) WBC LM.HPF 0-2/HPF (A) 01-09-2018 no information #/area (Urine 22:25-0400 sed) no information Urine Saved if (A) 01-09-2018 no infor mation Culture Needed 22:25-0400 (48hrs from time of collection) No panel information on 2017-12-10 Alanine 69 U/L (H) 4 - 40 U/L Critical access hospital aminotransferase [facility] (ALT) [facility] (92741) Albumin 4.3 g/dL (N) 3.4 - 5.4 g/dL [facility] (20623) Albumin/Globulin 1.8 (N) [facility] Hea lt Ratio [facility] (42719) Alkaline 97 U/L (N) 44 - 147 U/L [facility] alth phosphatase [facility] (ALP) [facility] (37698) Aspartate 65 U/L (H) 10 - 34 U/L [facility] aminotransferase [facility] (AST) [facility] (81356) Bilirubin 0.6 mg/dL (N) 0.1 - 1.2 mg/dL [facility] (total) [facility] (50556) BUN/Creatinine 8 mg/mg (N) 6 - 22 mg/mg [facility] (39878) Calcium 9.2 mg/dL (N) 8.5 - 10.2 mg/dL [facility] (65466) Chloride 89 mmol/L (L) 95 - 106 mmol/L [facility] (09598) CO2 25 mmol/L (N) 23 - 29 mmol/L [facility] (35286) Creatinine 0.62 mg/dL (N) [facility] (96420) eGFR (black) 140 (N) 90 - 120 [facility] mL/min/{1.73_m2} mL/min/{1.73_m2} [facility] (48730) eGFR (MDRD) 121 (N) 90 - 120 Critical access hospital mL/min/{1.73_m2} mL/min/{1.73_m2} [facility] (04018) Erythrocyte 2 mm/h (N) [facility] (61987) Globulin 2.4 (N) [facility] Healt [facility] (06235) Glucose 90 mg/dL (N) 60 - 125 mg/dL [facility] (09373) Potassium 4.5 mmol/L (N) 3.7 - 5.2 mmol/L [facility] (49923) Protein 6.7 g/dL (N) 6.4 - 8.3 g/dL [facility] (54711) Sodium 123 mmol/L (L) 135 - 145 mmol/L [facility] (18620) Urea nitrogen 5 mg/dL (L) 7 - 20 mg/dL [facility] (57003) glucose fingerstick (in house) on 2017-10-01 GLUCOSE 57 (no code) 10-01-2017 [facility] Heal th FINGERSTICK (IN 13:00-0400 Center of HOUSE) [facility] (32890) GLUCOSE [id number] (no code) 10-01-2017 [facility] Heal th FINGERSTICK (IN 13:00-0400 Center of HOUSE) [facility] (24474) GLUCOSE 11/2017 (no code) 10-01-2017 [facility] th FINGERSTICK (IN 13:00-0400 Center of HOUSE) [facility] (22610) a1c (in house) on 2017-10-01 Hemoglobin 4.8 % (no code) 0 - 5.7 % 10-01-2017 [facility] A1c/Hemoglobin.t 13:00-0400 [facility] fraction (d) (12813) Hemoglobin 5.3 % (no code) 0 - 5.7 % 10-01-2017 [facility] A1c/Hemoglobin.t 13:00-0400 [facility] fraction (d) (40957) A1C (IN HOUSE) 856 (no code) 10-01-2017 [facility] ealth 13:00-0400 [facility] (10775) A1C (IN HOUSE) 07/2019 (no code) 10-01-2017 [facility] ealth 13:00-0400 [facility] (65486) No panel information on 2017-10-01 Exp date 11/2017 (no code) [facility] (28420) GLU FINGERSTICK 57 (no code) [facility] (45103) Lot # [id number] (no code) [facility] (64776) No panel information on 2017-09-16 NEGATED no information (no code) 09-16-2017 [facility] (00 000) no 11:15-0400 information No panel information on 2017-05-29 Exp date 02/2019 (no code) [facility] ([id number]) Lot 5.3~5.5~[id number] (no code) [facility] ([id number]) No panel information on 2016-05-22 Albumin 4.8 g/dL (no code) 3.4 - 5.4 g/dL 05-22-2016 Not Tania ilable [Mass/Vol] 09:490500 ([id number]) Albumin/Globulin 1.9 {ratio} (no code) 1 - 2.5 {ratio} 7 Not Available [Mass ratio] 09:490500 ([id number]) ALP [Catalytic 63 U/L (no code) 44 - 147 U/L 05-22-2016 Not Available activity/Vol] 09:490500 ([id number]) ALT [Catalytic 26 U/L (no code) 4 - 40 U/L 05-22-2016 Not Av ailable activity/Vol] 09:490500 ([id number]) AST [Catalytic 26 U/L (no code) 10 - 34 U/L 05-22-2016 Not A vailable activity/Vol] 09:490500 ([id number]) Basophils (Bld) 0.0 10*3/uL (no code) 0 - 0.3 10*3/uL 05-22-2016 Not Available [#/Vol] 08:42-0500 ([id number]) Basophils/100 1 % (no code) 0.5 - 1 % 05-22-2016 Not Avai lable WBC (Bld) 08:42-0500 ([id number]) Bilirubin 0.4 mg/dL (no code) 0.1 - 1.2 mg/dL 05-22-2016 Not Av ailable [Mass/Vol] 09:49-0500 ([id number]) Calcium 9.4 mg/dL (no code) 8.5 - 10.2 mg/dL 05-22-2016 Not A vailable [Mass/Vol] 09:49-0500 ([id number]) Chloride 90 mmol/L (L) 95 - 106 mmol/L 05-22-2016 Not Av ailable [Moles/Vol] 09:34-0500 ([id number]) Cholesterol 156 mg/dL (no code) 180 - 200 mg/dL 05-22-2016 Not Available [Mass/Vol] 09:49-0500 (74214) Cholesterol in 74 mg/dL (no code) 05-22-2016 Not Availab le HDL [Mass/Vol] 09:49-0500 ([id number]) Cholesterol in 72 mg/dL (no code) 0 - 100 mg/dL 05-22-2016 Not Available LDL [Mass/Vol] 09:49-0500 ([id number]) Cholesterol in 10 mg/dL (no code) 05-22-2016 Not Availab le VLDL [Mass/Vol] 09:49-0500 ([id number]) CO2 [Moles/Vol] 18 mmol/L (no code) 23 - 29 mmol/L 05-22-2016 N ot Available 09:34-0500 ([id number]) Creatinine 0.60 mg/dL (L) 05-22-2016 Not Available [Mass/Vol] 09:49-0500 ([id number]) Eosinophils 0.0 10*3/uL (no code) 0.05 - 0.5 05-22-2016 Not Tania ilable (Bld) [#/Vol] 10*3/uL 08:42-0500 ([id number]) Eosinophils/100 1 % (no code) 1 - 4 % 05-22-2016 Not Av ailable WBC (Bld) 08:420500 (14941) Erythrocyte 12.9 % (no code) 11.6 - 14.6 % 05-22-2016 Not Av ailable distribution 08:42-0500 (12140) width (RBC) [Ratio] GFR/1.73 sq M 143 (no code) 90 - 120 05-22-2016 Not Avai lable predicted among mL/min/{1.73_m2} mL/min/{1.73_m2} 09:49-0500 (27670) blacks MDRD (S/P/Bld) [Vol rate/Area] GFR/1.73 sq M 124 (no code) 90 - 120 05-22-2016 Not Avai lable predicted among mL/min/{1.73_m2} mL/min/{1.73_m2} 09:49-0500 ([id number]) non-blacks MDRD (S/P/Bld) [Vol rate/Area] Globulin (S) 2.5 g/dL (no code) 2 - 3.5 g/dL 05-22-2016 Not Av ailable [Mass/Vol] 09:49-0500 (95815) Glucose 155 mg/dL (H) 60 - 125 mg/dL 05-22-2016 Not Tania ilable [Mass/Vol] 09:49-0500 ([id number]) HAV IgM IA Ql no information (no code) 05-22-2016 Not Avail able 12:10-0500 ([id number]) HBV core IgM IA no information (no code) 05-22-2016 Not Tania ilable Ql 12:10-0500 ([id number]) HBV surface Ag no information (no code) 05-22-2016 Not Avai lable IA Ql 12:10-0500 ([id number]) HCV Ab >11.0 (H) 05-22-2016 Not Available Signal/Cutoff IA 12:10-0500 (04582) [Rel units/Vol] Hematocrit (Bld) 39.3 % (no code) 36.1 - 50.3 % 05-22-2016 N ot Available [Volume 08:42-0500 ([id number]) fraction] Hemoglobin (Bld) 14.3 g/dL (no code) 12.1 - 17.2 g/dL 05-22-2016 Not Available [Mass/Vol] 08:42-0500 ([id number]) Immature 0.0 10*3/uL (no code) 0 - 0.2 10*3/uL 05-22-2016 Not Available granulocytes 08:42-0500 ([id number]) (Bld) [#/Vol] Immature 0 % (no code) 0 - 0.5 % 05-22-2016 Not Availabl e granulocytes/100 08:42-0500 (09890) WBC (Bld) Lymphocytes 1.2 10*3/uL (no code) 0.9 - 2.9 05-22-2016 Not Avai lable (Bld) [#/Vol] 10*3/uL 08:42-0500 (00762) Lymphocytes/100 19 % (no code) 20 - 40 % 05-22-2016 Not Av ailable WBC (Bld) 08:42-0500 (28652) MCH (RBC) 34.6 pg (H) 27 - 31 pg 05-22-2016 Not Availab le [Entitic mass] 08:42-0500 ([id number]) MCHC (RBC) 36.4 g/dL (H) 32 - 36 g/dL 05-22-2016 Not Avai lable [Mass/Vol] 08:42-0500 ([id number]) MCV (RBC) 95 fL (no code) 80 - 100 fL 05-22-2016 Not Availa ble [Entitic vol] 08:42-0500 ([id number]) Monocytes (Bld) 0.8 10*3/uL (no code) 0.3 - 0.9 05-22-2016 Not Available [#/Vol] 10*3/uL 08:42-0500 (81316) Monocytes/100 13 % (no code) 2 - 8 % 05-22-2016 Not Avai lable WBC (Bld) 08:42-0500 (71386) Neutrophils 4.3 10*3/uL (no code) 1.7 - 7 10*3/uL 05-22-2016 No t Available (Bld) [#/Vol] 08:42-0500 ([id number]) Neutrophils/100 66 % (no code) 40 - 60 % 05-22-2016 Not Av ailable WBC (Bld) 08:42-0500 ([id number]) Platelets (Bld) 216 10*3/uL (no code) 150 - 450 05-22-2016 Not Available [#/Vol] 10*3/uL 08:42-0500 (85872) Potassium 3.8 mmol/L (no code) 3.7 - 5.2 mmol/L 05-22-2016 Not Available [Moles/Vol] 09:34-0500 ([id number]) Protein 7.3 g/dL (no code) 6.4 - 8.3 g/dL 05-22-2016 Not Tania ilable [Mass/Vol] 09:49-0500 ([id number]) RBC (Bld) 4.13 10*6/uL (L) 4.2 - 6.1 05-22-2016 Not Avail able [#/Vol] 10*6/uL 08:42-0500 ([id number]) Sodium 131 mmol/L (L) 135 - 145 mmol/L 05-22-2016 Not Available [Moles/Vol] 09:34-0500 ([id number]) Triglyceride 51 mg/dL (no code) 0 - 150 mg/dL 05-22-2016 Not A vailable [Mass/Vol] 09:49-0500 ([id number]) Urea nitrogen 6 mg/dL (no code) 7 - 20 mg/dL 05-22-2016 Not A vailable [Mass/Vol] 09:49-0500 ([id number]) Urea 10 mg/mg (no code) 6 - 22 mg/mg 05-22-2016 Not Avail able nitrogen/Creatin 09:49-0500 (43293) ine [Mass ratio] WBC (Bld) 6.4 10*3/uL (no code) 3.5 - 10.5 05-22-2016 Not Avail able [#/Vol] 10*3/uL 08:420500 (28391) Vital Signs Vital Sign Value Interpretation Reference Date Time Care Prov ider Facility (Normalized) (Normalized) Range BMI (Body Mass 32.71 kg/m2 (no code) 15 - 25 kg/m2 01-06-2018 Veronica [facility]) 14:00-[address] [place] [address] (92800) BMI (Body Mass 33.54 kg/m2 (no code) 15 - 25 kg/m2 12-31-2017 NEEL GONZALEZ [facility]) 11:40-[address] [place] [address] (67242) BMI (Body Mass 33.14 kg/m2 (no code) 15 - 25 kg/m2 11-26-2017 Lilly BLEVINS [facility]) 17:20-[address] [place] [address] ([id number]) BMI (Body Mass 36.58 kg/m2 (no code) 15 - 25 kg/m2 04-24-2018 Lilly BLEVINS [facility] Index) 16:20-0400 [address] [facility] ([id number]) Body 97.8 [degF] (no code) 97.8 - 99.0 01-06-2018 [facility] [degF[facility] 14:00-0400 [address] [facility] ([id number]) Body 98 [degF] (no code) 97.8 - 99.0 12-31-2017 ALISON Aguirre [facility] Temperature [degF] 11:40-[address] ([id number]) Body 98 [degF] (no code) 97.8 - 99.0 11-26-2017 YVES MCFARLANE [facility] Temperature [degF] 17:20-[address] [place] [address] ([id number]) Body 97.6 [degF] (no code) 97.8 - 99.0 10-01-2017 YVES ARTEAGA [facility] Temperature [degF] 15:40-[id number] [place] [address] (60741) Body 97.2 [degF] (no code) 97.8 - 99.0 09-01-2017 YVES ARTEAGA [facility] Temperature [degF] 16:20-[address] [place] [address] (92192) Height 177.8 cm (no code) cm 01-06-2018 [facility] 14:000400 51516 [facility] ([id number]) Height 177.8 cm (no code) cm 12-31-2017 ALISON Lawrenceu nity 11:40-[address] ([address]) Height 177.8 cm (no code) cm 11-26-2017 YVES Aguirre [facility] 17:20-0400 [address] [facility] (62058) Height 177.8 cm (no code) cm 11-04-2017 YVES Aguirre [facility] 15:40-0400 [address] [facility] (56936) Height 177.8 cm (no code) cm 10-01-2017 YVES Aguirre [facility] 15:40-0400 31068 [facility] (20965) Height 177.8 cm (no code) cm 09-01-2017 YVES BLEVINS [facility] 16:20-0400 84972 [facility] (20445) Pulse Oximetry 95 % (no code) 95 - 100 % 10-01-2017 [facility] 15:40-0400 [address]98[address] [facility] ([id number]) Weight 103.42 kg (no code) kg 01-06-2018 [facility] 14:00-[address] [place] [address] ([id number]) Weight 106.05 kg (no code) kg 12-31-2017 [facility] [place] 11:40-[id number] [place] [address] (96753) Weight 104.78 kg (no code) kg 11-26-2017 YVES BELAKALI [facility] 17:20-[id number] [place] [address] (79355) Weight 115.67 kg (no code) kg 09-01-2017 [facility] 16:20-[id number] [place] [address] ([id number]) Interventions No Information Plan of Treatment Normalized Care Care Detail Care Activity Date Care Provider F acility Activity (CHM) [facility] 03-15-2018 YVES BLEVINS [id number] [facility] ([id number]) (CHM) [facility] 04-09-2018 - YVES Pinto [id number] [facility] 04-09-2018 - [facility] 04-09-2018 [place] ([id number]) [facility] 07-27-2019 - YVES BLEVINS [id number] Pending sale to [facility] 07-27-2019 - [facility] 07-27-2019 [place] ([id number]) [facility] 07-18-2019 YVES BLEVINS [phone] [facility] ([id number]) no information no information no information YVES BLEVINS [phone] [facility] ([id number]) Goals No Information Social History No Information Functional Status No Information Mental Status No Information Encounters Encounter Normalized Encounter Encounter Diagnosis Care Provi ambrose Organization Date Type 01-06-2018 (ACUTE) Acute Visit Acute upper CLAY HIGHTOWER (no [facility] ([facility] - respiratory infection, phone) CLAY (no pamela ne) 01-06-2018 unspecified Denice (no phone) - 01-06-2018 12-31-2017 (WALK-IN) Walk-In Care Acute suppurative ALISON HOLCOMB (no [facility] - otitis media without phone) CARE (no phone) 12-31-2017 spontaneous rupture of - ear drum, right ear 12-31-2017 12-10-2017 [facility] Dorsalgia, unspecified YVES BLEVINS (no [facility] ([facility] - phone) (no phone) 12-10-2017 - 12-10-2017 03-28-2019 Emergency department no information no name (no pamela ne) no organization name patient visit (no phone) 02-15-2019 Emergency department no information no name (no pamela ne) no organization name - patient visit (no phone) 02-15-2019 02-15-2019 Emergency department no information KEVIN ROBB MD (no [facility] - patient visit phone) [facility] 02-15-2019 (no phone) 01-26-2019 Emergency department no information no name (no pamela ne) no organization name patient visit (no phone) 01-26-2019 Emergency department no information no name (no pamela ne) no organization name patient visit (no phone) 09-15-2018 Emergency department no information no name (no pamela ne) no organization name patient visit (no phone) 09-04-2018 Emergency department no information no name (no pamela ne) no organization name - patient visit (no phone) 09-04-2018 09-04-2018 Emergency department no information PAULETTE HAZEL (no [facility] - patient visit phone) [facility] 09-04-2018 (no phone) 10-05-2017 Emergency department no information no name (no pamela ne) no organization name - patient visit (no phone) 10-05-2017 10-05-2017 Emergency department no information KEVIN ROBB MD (no [facility] - patient visit phone) [facility] 10-05-2017 (no phone) 09-25-2017 Emergency department no information no name (no pamela ne) no organization name - patient visit (no phone) 09-25-2017 09-25-2017 Emergency department no information WERNER WILLARD (no [facility] - patient visit phone) [facility] 09-25-2017 (no phone) 09-18-2017 Emergency department no information no name (no pamela ne) no organization name patient visit (no phone) 03-29-2019 Evaluation and no information ISAK S EDWARDS DO (no [facility] - management of phone) [facility] 03-30-2019 inpatient (no phone) 03-28-2019 Evaluation and no information no name (no phone) n o organization name - management of (no phone) 03-30-2019 inpatient 01-26-2019 Evaluation and no information ISAK S EDWARDS DO (no [facility] - management of phone) [facility] 01-28-2019 inpatient (no phone) 09-16-2018 Evaluation and no information no name (no phone) n o organization name - management of (no phone) 09-18-2018 inpatient 09-15-2018 Evaluation and no information ISAK Isra GRIFFITHEDWARDS DO (no [facility] - management of phone) [facility] 09-18-2018 inpatient (no phone) 09-18-2017 Evaluation and no information no name (no phone) n o organization name - management of (no phone) 09-20-2017 inpatient 09-18-2017 Evaluation and no information KRISTINA RODRÍGUEZ MD (no [facility] - management of phone) [facility] 09-20-2017 inpatient (no phone) 08-28-2017 Evaluation and no information no name (no phone) n o organization name - management of (no phone) 08-30-2017 inpatient 01-09-2018 Patient encounter no information no name (no phone) no organization name - (no phone) 01-10-2018 01-09-2018 Patient encounter no information no name (no phone) no organization name (no phone) 01-06-2018 Patient encounter no information no name (no phone) no organization name (no phone) 12-10-2017 Patient encounter no information no name (no phone) no organization name (no phone) 11-26-2017 Patient encounter no information no name (no phone) no organization name (no phone) 11-04-2017 Patient encounter no information no name (no phone) no organization name - (no phone) 11-05-2017 11-04-2017 Patient encounter no information no name (no phone) no organization name (no phone) 11-04-2017 Patient encounter no information no name (no phone) no organization name (no phone) 10-30-2017 Patient encounter no information no name (no phone) no organization name (no phone) 10-21-2017 Patient encounter no information no name (no phone) no organization name (no phone) 10-14-2017 Patient encounter no information no name (no phone) no organization name (no phone) 10-06-2017 Patient encounter no information no name (no phone) no organization name (no phone) 10-05-2017 Patient encounter no information no name (no phone) no organization name - (no phone) 10-05-2017 10-05-2017 Patient encounter no information no name (no phone) no organization name (no phone) NEGATED Patient encounter no information no name (no phone) no organization name 10-01-2017 (no phone) - 11-10-2017 09-30-2017 Patient encounter no information no name (no phone) no organization name (no phone) 09-30-2017 Patient encounter no information no name (no phone) no organization name (no phone) 09-18-2017 Patient encounter no information no name (no phone) no organization name - (no phone) 09-20-2017 09-01-2017 Patient encounter no information no name (no phone) no organization name (no phone) 07-17-2017 Patient encounter no information no name (no phone) no organization name (no phone) 05-29-2017 Patient encounter no information no name (no phone) no organization name (no phone) 04-26-2015 Patient encounter no information no name (no phone) no organization name - (no phone) 04-26-2015 04-16-2012 Patient encounter no information no name (no phone) no organization name (no phone) 09-01-2010 Patient encounter no information no name (no phone) no organization name (no phone) 08-15-2019 Patient encounter no information CLAY ERICKSON MD (no [facility] procedure phone) [facility] (no phone) 08-01-2019 Patient encounter no information CLAY ERICKSON MD (no [facility] procedure phone) [facility] (no phone) 07-21-2019 Patient encounter no information ANSELMO LAN MD (n o [facility] - procedure phone) [facility] 07-21-2019 (no phone) 07-20-2019 Patient encounter no information ANSELMO LAN MD (n o [facility] - procedure phone) [facility] 07-20-2019 (no phone) 07-18-2019 Patient encounter no information CLAY ERICKSON MD (no [facility] procedure phone) [facility] (no phone) 07-13-2019 Patient encounter no information CLAY ERICKSON MD (no [facility] procedure phone) [facility] (no phone) 06-27-2019 Patient encounter no information YONATAN LUCIO MD [facility] procedure (no phone) [facility] (no phone) 06-20-2019 Patient encounter no information YONATAN LUCIO MD [facility] procedure (no phone) [facility] (no phone) 06-06-2019 Patient encounter no information ROQUE BAKER MD (no [facility] procedure phone) [facility] (no phone) 05-30-2019 Patient encounter no information YONATAN LUCIO MD [facility] procedure (no phone) [facility] (no phone) 05-16-2019 Patient encounter no information YONATAN LUCIO MD [facility] procedure (no phone) [facility] (no phone) 05-09-2019 Patient encounter no information CLAY ERICKSON MD (no [facility] procedure phone) [facility] (no phone) 05-09-2019 Patient encounter no information CLAY ERICKSON MD (no [facility] procedure phone) [facility] (no phone) 04-29-2019 Patient encounter no information no name (no phone) no organization name procedure (no phone) 04-22-2019 Patient encounter no information no name (no phone) no organization name procedure (no phone) 04-08-2019 Patient encounter no information no name (no phone) no organization name procedure (no phone) 04-05-2019 Patient encounter no information no name (no phone) no organization name procedure (no phone) 04-01-2019 Patient encounter no information no name (no phone) no organization name procedure (no phone) 03-29-2019 Patient encounter no information no name (no phone) no organization name - procedure (no phone) 03-30-2019 03-21-2019 Patient encounter no information no name (no phone) no organization name procedure (no phone) 03-14-2019 Patient encounter no information no name (no phone) no organization name procedure (no phone) 03-08-2019 Patient encounter no information no name (no phone) no organization name procedure (no phone) 02-28-2019 Patient encounter no information no name (no phone) no organization name procedure (no phone) 02-21-2019 Patient encounter no information no name (no phone) no organization name procedure (no phone) 02-16-2019 Patient encounter no information no name (no phone) no organization name procedure (no phone) 02-15-2019 Patient encounter no information no name (no phone) no organization name procedure (no phone) 02-11-2019 Patient encounter no information no name (no phone) no organization name procedure (no phone) 02-09-2019 Patient encounter no information no name (no phone) no organization name procedure (no phone) 02-02-2019 Patient encounter no information no name (no phone) no organization name procedure (no phone) 01-29-2019 Patient encounter no information no name (no phone) no organization name procedure (no phone) 01-29-2019 Patient encounter no information no name (no phone) no organization name procedure (no phone) 01-26-2019 Patient encounter no information no name (no phone) no organization name - procedure (no phone) 01-28-2019 01-14-2019 Patient encounter no information no name (no phone) no organization name procedure (no phone) 01-07-2019 Patient encounter no information no name (no phone) no organization name procedure (no phone) 12-30-2018 Patient encounter no information no name (no phone) no organization name procedure (no phone) 12-30-2018 Patient encounter no information no name (no phone) no organization name procedure (no phone) 12-28-2018 Patient encounter no information no name (no phone) no organization name procedure (no phone) 12-23-2018 Patient encounter no information no name (no phone) no organization name procedure (no phone) 12-20-2018 Patient encounter no information no name (no phone) no organization name procedure (no phone) 12-14-2018 Patient encounter no information no name (no phone) no organization name procedure (no phone) 12-14-2018 Patient encounter no information no name (no phone) no organization name procedure (no phone) 12-07-2018 Patient encounter no information no name (no phone) no organization name procedure (no phone) 12-07-2018 Patient encounter no information no name (no phone) no organization name procedure (no phone) 11-29-2018 Patient encounter no information no name (no phone) no organization name procedure (no phone) 11-23-2018 Patient encounter no information no name (no phone) no organization name procedure (no phone) 11-22-2018 Patient encounter no information no name (no phone) no organization name procedure (no phone) 10-29-2018 Patient encounter no information no name (no phone) no organization name procedure (no phone) 10-29-2018 Patient encounter no information no name (no phone) no organization name procedure (no phone) 10-28-2018 Patient encounter no information no name (no phone) no organization name procedure (no phone) 10-22-2018 Patient encounter no information no name (no phone) no organization name procedure (no phone) 10-22-2018 Patient encounter no information no name (no phone) no organization name procedure (no phone) 10-15-2018 Patient encounter no information no name (no phone) no organization name procedure (no phone) 10-12-2018 Patient encounter no information no name (no phone) no organization name procedure (no phone) 10-11-2018 Patient encounter no information no name (no phone) no organization name procedure (no phone) 10-11-2018 Patient encounter no information no name (no phone) no organization name procedure (no phone) 10-06-2018 Patient encounter no information no name (no phone) no organization name procedure (no phone) 10-05-2018 Patient encounter no information no name (no phone) no organization name procedure (no phone) 09-28-2018 Patient encounter no information no name (no phone) no organization name procedure (no phone) 09-24-2018 Patient encounter no information no name (no phone) no organization name procedure (no phone) 09-16-2018 Patient encounter no information no name (no phone) no organization name - procedure (no phone) 09-18-2018 09-09-2018 Patient encounter no information no name (no phone) no organization name procedure (no phone) 09-06-2018 Patient encounter no information no name (no phone) no organization name procedure (no phone) 09-04-2018 Patient encounter no information no name (no phone) no organization name procedure (no phone) 07-23-2018 Patient encounter no information no name (no phone) no organization name procedure (no phone) 07-14-2018 Patient encounter no information no name (no phone) no organization name procedure (no phone) 07-02-2018 Patient encounter no information no name (no phone) no organization name procedure (no phone) 05-27-2018 Patient encounter no information no name (no phone) no organization name procedure (no phone) 05-27-2018 Patient encounter no information no name (no phone) no organization name procedure (no phone) 04-16-2018 Patient encounter no information no name (no phone) no organization name - procedure (no phone) 04-16-2018 11-04-2017 Patient encounter no information CLAY ERICKSON MD (no [facility] procedure phone) [facility] (no phone) 10-30-2017 Patient encounter no information CLAY ERICKSON MD (no [facility] procedure phone) [facility] (no phone) 10-21-2017 Patient encounter no information CLAY ERICKSON MD (no [facility] procedure phone) [facility] (no phone) 10-14-2017 Patient encounter no information CLAY ERICKSON MD (no [facility] procedure phone) [facility] (no phone) 10-06-2017 Patient encounter no information CLAY ERICKSON MD (no [facility] procedure phone) [facility] (no phone) 09-30-2017 Patient encounter no information CLAY ERICKSON MD (no [facility] procedure phone) [facility] (no phone) 09-30-2017 Patient encounter no information CLAY ERICKSON MD (no [facility] procedure phone) [facility] (no phone) 12-05-2016 Patient encounter no information no name (no phone) no organization name - procedure (no phone) 12-05-2016 04-26-2015 Patient encounter no information SIENA PAEZ MD ( no [facility] - procedure phone) [facility] 04-26-2015 (no phone) Patient encounter no information no name (no phone) no organ ization name procedure (no phone) 01-07-2018 Telephone encounter Dorsalgia, unspecified YVES RFANK (no [facility] - phone) CLAY HIGHTOWER (no phone) 01-07-2018 (no phone) YVES BLEVINS (no phone) 01-07-2018 CLAY HIGHTOWER (no phone) CLAY HIGHTOWER (no phone) YVES BLEVINS (no phone) CLAY Galdamez (no phone) 01-04-2018 Telephone encounter no information YVES BLEVINS (n o [facility] - phone) (no phone) 01-04-2018 - 01-04-2018 07-22-2019 no information Encounter for other no name (no phon e) no organization name preprocedural (no phone) examination no information Encounter for dental no name (no phone) no or ganization name examination and (no phone) cleaning without abnormal findings Medical Equipment No Information Payers Normalized Payer Value Medicare no information History general Narrative - Reported Note Type Note Facility History general Narrative - Reported Type Medical hypertension History Medical Type 2 Diabetes History Medical Hep C History Medical Depression History Medical Anxiety History Medical right foot wounds History Medical OD on drugs History Medical right big toe amputated History Surgical Right little toe amputation History Surgical right big toe amputated 01/2019 History Surgical scopes - twail checking for stones 2018 History Surgical wound care on right toes - dr erickson History Hospitaliz Psych hospitalizations(nume jd) ation History Hospitaliz for surgeries ation History Hospitaliz UTI 08/27/17 ation History Hospitaliz foot wound 09/2017 ation History [facility] OD on drugs 09/15/2018 ation History [facility] 03/28/19 ation History Hospitaliz [facility]- Toe amputation 01/2019 ation History [facility] ([id number]) History general Narrative - Reported Note Type Note Facility History general Narrative - Reported Type Medical hypertension History Medical Type 2 Diabetes History Medical Hep C History Medical Depression History Medical Anxiety History Medical right foot wounds History Medical OD on drugs History Medical right big toe amputated History Surgical Right little toe amputation History Surgical right big toe amputated 01/2019 History Surgical scopes - twail checking for stones 2018 History Surgical wound care on right toes - dr erickson History Surgical Rt toe amputation 06/2019 History Hospitaliz Psych hospitalizations(nume jd) ation History Hospitaliz for surgeries ation History Hospitaliz UTI 08/27/17 ation History Hospitaliz foot wound 09/2017 ation History Hospitaliz [facility] OD on drugs 09/15/2018 ation History Hospital[facility] 03/28/19 ation History [facility]- Toe amputation 01/2019 ation History [facility] ([id number]) Summary Purpose eClinicalWorks SubmissioneClinicalWorks SubmissioneClinicalWorks SubmissioneClinicalWorks SubmissioneClinicalWorks SubmissioneClinicalWorks SubmissioneClinicalWorks SubmissioneClinicalWorks SubmissioneClinicalWorks SubmissioneClinicalWorks SubmissioneClinicalWorks SubmissioneClinicalWorks SubmissioneClinicalWorks SubmissioneClinicalWorks SubmissioneClinicalWorks SubmissioneClinicalWorks SubmissioneClinicalWorks SubmissioneClinicalWorks Submission Additional Source Comments This clinical document has been generated using [employer] software that has been certified by the Office of the National Coordinator for Health Information Technology (ONC 15.99.04.3023.Diam.[id number]) and the National Committee for Insurance Sales Supervisor (NCQA, as an eMeasure certified technology). FOR RECORDS PERTAINING TO PATIENTS WHO ARE OR HAVE BEEN ENROLLED IN A CHEMICAL D EPENDENCY/SUBSTANCE ABUSE PROGRAM, SOME INFORMATION MAY BE OMITTED. This clinica l summary was aggregated from multiple sources. Caution should be exercised in using it in the provision of clinical care. This summary normalizes information from multiple sources, and as a consequence, information in this document may ma terially change the coding, format and clinical context of patient data. In shirley tion, data may be omitted in some cases. CLINICAL DECISIONS SHOULD BE BASED ON T HE PRIMARY CLINICAL RECORDS. [employer] provides no warranty or guara ntee of the accuracy or completeness of information in this document.The followi ng information is based on time limited clinical information UNRECOGNIZED CONTENT PROVIDED BELOW FOR UNRECOGNIZED SECTION MEDICAL (GENERAL) HISTORY Type Description Date Medical History hypertension Medical History Type 2 Diabetes Medical History Hep C Medical History Depression Medical History Anxiety Surgical History Right little toe am putation Hospitalization History Psych hospit alizations(numerous) Hospitalization History for surgeries Type Description Date Medical History hypertension Medical History Type 2 Diabetes Medical History Hep C Medical History Depression Medical History Anxiety Surgical History Right little toe am putation Hospitalization History Psych hospit alizations(numerous) Hospitalization History for surgeries Hospitalization History UTI 08/27/17 Type Description Date Medical History hypertension Medical History Type 2 Diabetes Medical History Hep C Medical History Depression Medical History Anxiety Medical History right foot wounds Surgical History Right little toe am putation Hospitalization History Psych hospit alizations(numerous) Hospitalization History for surgeries Hospitalization History UTI 08/27/17 Hospitalization History foot wound 09/2017 Type Description Date Medical History hypertension Medical History Type 2 Diabetes Medical History Hep C Medical History Depression Medical History Anxiety Medical History right foot wounds Medical History OD on drugs Surgical History Right little toe am putation Hospitalization History Psych hospit alizations(numerous) Hospitalization History for surgeries Hospitalization History UTI 08/27/17 Hospitalization History foot wound 09/2017 Hospitalization History [facility] OD on drugs 09/15/2018 Type Description Date Medical History hypertension Medical History Type 2 Diabetes Medical History Hep C Medical History Depression Medical History Anxiety Medical History right foot wounds Medical History OD on drugs Medical History right big toe amputated Surgical History Right little toe am putation Surgical History right big toe amputated 01/2019 Hospitalization History Psych hospit alizations(numerous) Hospitalization History for surgeries Hospitalization History UTI 08/27/17 Hospitalization History foot wound 09/2017 Hospitalization History [facility] OD on drugs 09/15/2018 UNRECOGNIZED CONTENT PROVIDED BELOW FOR UNRECOGNIZED SECTION REASON FOR VISIT lisinopril noteWound Care noteHydrocodone lood pressure check -[place] efestephania requestHome HealthFYIHypertension- Rosanne Schaffer RNControlled Med Refillright earache et sore throat since thursday. [email or web address] throat, difficulty hearing out of right ear. Excessive yellow mucus from nose. [facility] an d placed on abx of amoxicillin. Reports fatigue also CBrumbackRNRequests return callControlled Med Refill 01/08Requests return callFYI onlyRequests return callC ontrolled refill requestControlled Med Refill 03/05Lyrica refillControlled refil lControlled Med Refill 03/05Enrolled in CCMControlled Med RefillLyrica refillEMR -[facility] [place]Bl[place] GvrbXJN-WyxQSU-[id number]/Medication questionMedication reconci liation
--- OUTSIDE RECORDS SUMMARY | 2019-09-09 08:29 | XMS REPORT | Clinical Summary ---
Author Author [facility] Organization [facility] Address Unknown Phone Unavailable Care Team Providers Care Tailer Off Name Role Phone PCP Unavailable Allergies Comments Active Allergy Reactions Severity Noted Date Tongue swells, lock jaw, SOB Haloperidol Decanoate Swelling High 03/01/20 12 Latex Rash Low 03/01/2012 Alleges that he developed diabetes secondary Quetiapine Fumerate High 03/02/2012 Chlorpromazine Hcl Rash Low 03/01/2012 Medications End Date Status Medication Sig Dispensed Refills Start Date Active busPIRone (BUSPAR) 10 MG Take 2 120 tablet 0 1 tablet tablets (20 2 mg total) by mouth 2 (two) times daily. Active duloxetine (CYMBALTA) 60 Take 1 30 capsule 0 1 MG capsule capsule (60 2 mg total) [...] (GLUCOPHAGE) Take 1 tablet 60 tablet 0 1 500 MG tablet (500 mg 2 total) by mouth 2 (two) times daily with meals. Active Problems Problem Noted Date Schizoaffective disorder, depressive type 03/04/2012 Mood disorder 03/02/2012 Social History Date Tobacco Use Types Packs/Day Years Used Current Every Day Smoker 1 30 Tobacco Cessation: Ready to Quit: No; Co unseling Given: Yes Drinks/Week oz/Week Comments Alcohol Use 1 Standard drinks or equivalent 0.8 Yes Control Partners Comments Sexually Active Condom Female 1-2 pint vodtka per day Yes Sex Assigned at Date Recorded Not on file Industry Job Start Date Occupation Not on file Not on file Not on file Travel End Travel History Travel Start No recent travel history available. Last Filed Vital Signs Reading Time Taken Comments Vital Sign 127/88 03/12/2012 6:27 AM CDT Blood Pressure 75 03/12/2012 6:27 AM CDT Pulse 36.5 C (97.7 F) 03/12/2012 6:27 AM CDT Temperature 16 03/12/2012 6:27 AM CDT Respiratory Rate 96% 03/10/2012 9:15 AM CDT Oxygen Saturation - - Inhaled Oxygen Concentration 85.3 kg (188 lb) 03/10/2012 6:35 AM CDT Weight 177.8 cm (5' 10") 03/10/2012 6:35 AM CDT Height 26.98 03/10/2012 6:35 AM CDT Body Mass Index Plan of Treatment Health Maintenance Due Date Last Done Comments Varicella Vaccines (1 of 1974 2 - 2-dose childhood series) DTaP,Tdap,and Td Vaccines 1992 (1 - Tdap) MMR Vaccines-Adult 1992 Influenza Vaccine (Season 01/10/2020 Ended) Pneumo-Vaccine: Peds (0-5 Aged Out No longer el igible based on patient's age to Yrs) & At-Risk Patients complete this topic (6-64 Yrs) Results Not on filefrom Last 3 Months Advance Directives For more information, please contact: [phone] Date Inactivated Comments Code Status Date Activated 03/12/2012 4:11 PM Full Code 03/01/2012 11:18 PM
[2019-09-09] MEDS ORDERED: KETOROLAC 30 MG/ML VIAL IVP ONE (08:30)
--- OUTSIDE RECORDS SUMMARY | 2019-09-09 08:30 | XMS REPORT ---
Author Author Sahil JAMESON NA [facility] Organization [facility] Address [address] [place] [address] Care Team Providers Care Podiatrist Name Role Phone MICHAEL CEDILLOMELIZA Unavailable PROBLEMS Type Condition ICD9-CM Code RCE82-ID Code Onset Dates Condition S tatus SNOMED Code Problem Restless legs syndrome G25.81 Active 438119299 Problem GERD (gastroesophageal reflux disease) K21.9 Active 478957911 Problem Sinusitis, unspecified chronicity, unspecified location J32.9 Active 66735739 Problem COPD (chronic obstructive pulmonary disease) J44.9 Active 40795844 Problem Ulcer of right foot, unspecified ulcer stage L97.5 19 Active 18647531 Problem DM neuro manif type II E11.49 Active 80051290 Problem Constipation, unspecified constipation type K59.00 Active 72251958 Problem Schizoaffective disorder, depressive type F25.1 Active 03235562 Problem PAD (peripheral artery disease) I73.9 Active 245351598 Problem Chronic hepatitis C without hepatic coma B18.2 Active 309811054 Problem Polyneuropathy G62.9 Active 68695 000 Problem Alcohol use disorder, severe, dependence F10.20 Active 80880042 Problem Methamphetamine use disorder, severe, 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 Active 266967991 Problem Morbid (severe) obesity due to excess calories E66 .01 Active 943227415 Problem Neuropathy G62.9 Active 911648807 Problem ED (erectile dysfunction) N52.9 Acti ve 199997288 Problem 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 Active 807036968 Problem Substance abuse F19.10 Active 6621 4007 Problem Personality disorder F60.9 Active 83800264 Problem HTN (hypertension) I10 Active 3 8576998 Problem Cannabis use disorder, severe, dependence F12.20 Active 52750373 Problem Ulcer of toe of right foot, unspecified ulcer stage L97.519 Active 714245609 Problem Amputated toe of right foot S98.131A Ac tive 302319658 Problem Hammer toe, unspecified laterality M20.40 Active 420884886 ALLERGIES No Information ENCOUNTERS Encounter Location Date Diagnosis [facility] [address] [facility] [id number] [address] [place] [address] Oct, [facility] [id number] [place] [phone] Oct, [facility] [id number] [place] [phone] September, [facility] [address] [id number] [address] [place] [address] Aug, [facility] [address] [address] Aug, Schizoaffective disorder, de pressive type F25.1 ; Other assisted (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.899 and Stimulant use disorder F15.90 [facility] [address] [id number] [address] [place] [address] Aug, [facility] [address] [id number] [address] [place] [address] Aug, [facility] [address] [id number] [address] [place] [address] Aug, [facility] [address] [id number] [address] [place] [address] Aug, Chronic hepatitis C without hepatic coma B18.2 [facility] [address] [facility] [id number] [address] [place] [address] 06 Aug, 2019 [facility] [address] [id number] [address] [place] [address] Aug, [facility] [address] [facility] [id number] [address] [place] [address] Aug, Polyneuropathy G62.9 [facility] [address] [id number] [address] [place] [address] 24 Jul, 2019 [facility] [address] [id number] [address] [place] [address], [place] [address] 23 Jul, 2019 [facility] [address] [id number] [address] [place] [address], [place] [address] 18 Jul, 2019 [facility] [address] [id number] [address] [place] [address], [place] [address] 10 Jul, 2019 [facility] [address] [id number] [address] [place] [address], [place] [address] 10 Jul, 2019 [facility] [address] [id number] [address] [place] [address], [place] [address] 09 Jul, 2019 [facility] [address] [id number] [address] [place] [address], [place] [address] 09 Jul, 2019 [facility] [address] [id number] [address] [place] [address], [place] [address] 06 Jul, 2019 [facility] [address] [id number] [address] [place] [address] 04 Jul, 2019 [facility] [address] [id number] [address] [place] [address] 04 Jul, 2019 Polyneuropathy G62.9 [facility] [address] [id number] [address] [place] [address] 27 Jun, 2019 [facility] [address] [id number] [address] [place] [address] 17 Jun, 2019 [facility] [address] [id number] [address] [place] [address] 17 Jun, 2019 [facility] [address] [id number] [address] [place] [address] 10 Jun, 2019 [facility] [address] [id number] [address] [place] [address] 05 Jun, 2019 [facility] [address] [id number] [address] [place] [address] Jun, Polyneuropathy G62.9 [facility] [address] [facility] [id number] [address] [place] [address] May, [facility] [address] [facility] [id number] [address] [place] [address] May, Foot callus L84 [facility] [address] [facility] [id number] [address] [place] [address] May, [facility] [address] [facility] [id number] [address] [place] [address] May, [facility] [address] [facility] [id number] [address] [place] [address] May, [facility] [address] [id number] [address] [place] [address] May, Polyneuropathy G62.9 ; HTN ( hypertension) I10 ; Schizoaffective disorder, depressive type F25.1 ; PAD (peripheral artery disease) I73.9 ; COPD (chronic obstructive pulmonary disease) J44.9 ; Amputated toe of right foot S98.131A ; Methamphetamine use disorder, severe, 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 and Type 2 diabetes mellitus with other diabetic neurological complication E11.49 [facility] [address] [id number] [address] [place] [address] May, [facility] [address] [id number] [address] [place] [address] May, [facility] [address] [id number] [address] [place] [address] May, [facility] [address] [facility] [id number] [address] [place] [address] May, [facility] [address] [id number] [address] [place] [address] May, [facility] [address] [id number] [address] [place] [address] May, Chronic hepatitis C without hepatic coma B18.2 and HTN (hypertension) I10 [facility] [address] [id number] [address] [place] [address] May, Neuropathy G62.9 [facility] [address] [id number] [address] [place] [address] Apr, [facility] [address] [id number] [address] Apr, [facility] [address] [id number] [address] [place] [address] Apr, [facility] [address] [id number] [address] [place] [address] Apr, [facility] [address] [id number] [address] [place] [address] Apr, [facility] [address] [id number] [address] [place] [address] Apr, [facility] [address] [id number] [address] [place] [address] Apr, [facility] [address] [id number] [address] [place] [address] Apr, Ulcer of right foot, unspeci fied ulcer stage L97.519 ; Type 2 diabetes mellitus with other diabetic neurological complication E11.49 ; Onychomycosis B35.1 and Hammer toe, unspecified laterality M20.40 [facility] [address] [id number] [address] [place] [address] Apr, [facility] [address] [id number] [address] [place] [address] Apr, HTN (hypertension) I10 and U lcer of toe of right foot, unspecified ulcer stage L97.519 [facility] [address] [id number] [address] [place] [address] Apr, [facility] [address] [facility] [id number] [address] [place] [address] Apr, Schizoaffective disorder, de pressive type F25.1 ; Other assisted (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.899 and Stimulant use disorder F15.90 [facility] [address] [address] Apr, [facility] [address] [id number] [address] [place] [address] Apr, [facility] [address] [address] Apr, [facility] [address] [address] Mar, Pre-ulcerative calluses L84 [address] [place] [address] Mar, HTN (hypertension) I10 ; DM neuro manif type II E11.49 ; Morbid (severe) obesity due to excess calories E66.01 and Polyneuropathy G62.9 [facility] [address] [address] Mar, [facility] [address] [address] Mar, [facility] [address] [address] Mar, Onychomycosis B35.1 ; Callus of foot L84 and Hammer toe, unspecified laterality M20.40 [facility] [address] [id number] [place] [address] Mar, Neuropathy G62.9 [facility] [address] [id number] [address] [place] [address] Mar, [address] [place] [address] Mar, [facility] [address] [id number] [address] [place] [address] Mar, [facility] [address] [address] Mar, Constipation, unspecified co nstipation type K59.00 [facility] [address] [address] Mar, [facility] [address] [address] Mar, [facility] [address] [address] Mar, Chronic hepatitis C without hepatic coma B18.2 ; High risk medication use Z79.899 and Encounter for immunization Z23 [address] [address] [address] Mar, [place] [address] [address] Mar, Neuropathy G62.9 [facility] [address] [address] Mar, High risk sexual behavior, u nspecified type Z72.51 [place] [address] [address] Feb, Callus of foot L84 [address] [place] [address] [address] Feb, Callus of foot L84 [address] [place] [address] [address] Feb, [address] [address] Feb, [facility] [address] [address] Feb, Methamphetamine use disorder, severe, de pendence F15.20 ; Alcohol use disorder, severe, dependence F10.20 and Cannabis use disorder, severe, dependence F12.20 [address] [address] [address] Feb, Chronic hepatitis C without hepatic coma B18.2 [facility] [address] [id number] [place] [address] Feb, Methamphetamine use disorder, severe, de pendence F15.20 ; Alcohol use disorder, severe, dependence F10.20 and Cannabis use disorder, severe, dependence F12.20 [facility] [address] [id number] [address] [place] [address] Feb, [facility] [address] [id number] [address] [place] [address] Feb, Chronic hepatitis C without hepatic coma B18.2 [facility] [address] [facility] [id number] [place] [address] Feb, Methamphetamine use disorder, severe, de pendence F15.20 ; Alcohol use disorder, severe, dependence F10.20 and Cannabis use disorder, severe, dependence F12.20 [facility] [address] [facility] [id number] [address] [place] [address] Feb, [facility] [address] [id number] [address] [place] [address] Feb, [facility] [address] [facility] [id number] [address] [place] [address] Feb, [facility] [address] [facility] [id number] [address] [place] [address] Feb, [facility] [address] [facility] [id number] [address] [place] [address] Feb, Neuropathy G62.9 [facility] [address] [facility] [id number] [address] [place] [address] Feb, Schizoaffective disorder, de pressive type F25.1 ; Other assisted (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.899 and Stimulant use disorder F15.90 [facility] [address] [facility] [id number] [address] [place] [address] Feb, Onychomycosis B35.1 and Neur opathy G62.9 [facility] [address] [facility] [id number] [address] [place] [address] Feb, [facility] [address] [facility] [id number] [address] [place] [address] Feb, [facility] [address] [facility] [id number] [address] [place] [address] Feb, [facility] [address] [facility] [id number] [place] [address] Feb, Methamphetamine use disorder, severe, de pendence F15.20 ; Alcohol use disorder, severe, dependence F10.20 and Cannabis use disorder, severe, dependence F12.20 [facility] [address] [id number] [address] [place] [address] Feb, Chronic hepatitis C without hepatic coma B18.2 and Encounter for immunization Z23 [facility] [address] [id number] [address] [place] [address] Jan, [facility] [address] [facility] [id number] [address] [place] [address] Jan, [facility] [address] [facility] [id number] [address] [place] [address] Jan, [facility] [id number] [place] [address] Jan, Methamphetamine use disorder, severe, de pendence F15.20 ; Alcohol use disorder, severe, dependence F10.20 and Cannabis use disorder, severe, dependence F12.20 [facility] [address] [facility] [id number] [address] [place] [address] Jan, [facility] [address] [facility] [id number] [address] [place] [address] Jan, [facility] [address] [facility] [id number] [address] [place] [address] Jan, History of amputation Z89.9 [facility] [address] [id number] [address] [place] [address] 21 Jan, 2019 [facility] [address] [id number] [address] [place] [address] 20 Jan, 2019 [facility] [address] [id number] [address] [place] [address] 20 Jan, 2019 [facility] [address] [id number] [address] [place] [address] 19 Jan, 2019 [facility] [address] [id number] [address] [place] [address] 18 Jan, 2019 [facility] [address] [id number] [address] [place] [address] 18 Jan, 2019 [facility] [address] [id number] [address] [place] [address] 18 Jan, 2019 [facility] [address] [id number] [address] [place] [address] 18 Jan, 2019 [facility] [address] [id number] [place] [address] 18 Jan, 2019 Methamphetamine use disorder, severe, de pendence F15.20 ; Alcohol use disorder, severe, dependence F10.20 and Cannabis use disorder, severe, dependence F12.20 [facility] [address] [id number] [address] [place] [address] 18 Jan, 2019 [facility] [address] [id number] [address] [place] [address] 16 Jan, 2019 [facility] [address] [id number] [address] [place] [address] 13 Jan, 2019 [facility] [address] [id number] [place] [address] 11 Jan, 2019 Methamphetamine use disorder, severe, de pendence F15.20 ; Alcohol use disorder, severe, dependence F10.20 and Cannabis use disorder, severe, dependence F12.20 [facility] [address] [id number] [place] [address] 06 Jan, 2019 Methamphetamine use disorder, severe, de pendence F15.20 ; Cannabis use disorder, severe, dependence F12.20 and Alcohol use disorder, severe, dependence F10.20 [facility] [address] [id number] [address] [place] [address] Jan, Chronic hepatitis C without hepatic coma B18.2 [facility] [address] [facility] [id number] [address] [place] [address] Jan, Neuropathy G62.9 [facility] [address] [facility] [id number] [address] [place] [address] Jan, [facility] [address] [facility] [id number] [address] [place] [address] Jan, [facility] [address] [id number] [address] [place] [address] Jan, Chronic hepatitis C without hepatic coma B18.2 [place] [address] [id number] [address] [place] [address] Dec, Right foot pain M79.671 [place] [address] [place] [id number] [address] [place] [address] Dec, Schizoaffective disorder, de pressive type F25.1 ; Other supervisor intermediates (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.899 and Stimulant use disorder F15.90 [place] [address] [place] [id number] [address] [place] [address] Dec, [facility] [address] [facility] [id number] [place] [address] Dec, Methamphetamine use disorder, severe, de pendence F15.20 ; Alcohol use disorder, severe, dependence F10.20 and Cannabis use disorder, severe, dependence F12.20 [place] [address] [facility] [id number] [address] [place] [address] Dec, [facility] [address] [id number] [address] [place] [address] Dec, [facility] [address] [address] Dec, Ulcer of toe of right foot, unspecified ulcer stage L97.519 [facility] [address] [address] Dec, [facility] [address] [address] Dec, Methamphetamine use disorder, severe, de pendence F15.20 ; Cannabis use disorder, severe, dependence F12.20 and Alcohol use disorder, severe, dependence F10.20 [facility] [address] [address] Dec, [facility] [address] [address] Dec, Allergic contact dermatitis, unspecified trigger L23.9 and Ankle swelling, unspecified laterality M25.473 [facility] [address] [address] Dec, [facility] [address] [address] Dec, [facility] [address] [address] Dec, Methamphetamine use disorder, severe, de pendence F15.20 ; Alcohol use disorder, severe, dependence F10.20 and Cannabis use disorder, severe, dependence F12.20 [place] [address] [address] Dec, [place] [address] [address] Dec, [place] [address] [address] Dec, Diarrhea of presumed infecti ous origin R19.7 ; Chronic hepatitis C without hepatic coma B18.2 and Nail fungus B35.1 [place] [address] [address] Dec, Neuropathy G62.9 [facility] [address] [id number] [address] [place] [address] Dec, [facility] [address] [facility] [id number] [address] [place] [address] Nov, Schizoaffective disorder, de pressive type F25.1 ; Other supervisor intermediates (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.899 and Stimulant use disorder F15.90 [facility] [address] [id number] [address] [place] [address] Nov, [facility] [address] [id number] [place] [address] Nov, Substance abuse F19.10 [facility] [address] [id number] [address] [place] [address] Nov, [facility] [address] [facility] [id number] [address] [place] [address] Nov, Chronic hepatitis C without hepatic coma B18.2 [facility] [address] [id number] [address] [place] [phone] Nov, [facility] [address] [facility] [id number] [address] [place] [id number] Nov, Fatigue, unspecified type R5 3.83 [facility] [address] [facility] [id number] [address] [place] [id number] Nov, Schizoaffective disorder, de pressive type F25.1 ; Other supervisor intermediates (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.899 and Stimulant use disorder F15.90 [facility] [address] [id number] [address] [place] [phone] Nov, [facility] [address] [facility] [id number] [address] [place] [phone] Nov, [facility] [address] [facility] [id number] [address] [place] [phone] Nov, [facility] [address] [facility] [id number] [address] [place] [phone] 27 Oct, 2018 Neuropathy G62.9 [facility] [address] [facility] [id number] [address] [place] [phone] Oct, Prediabetes R73.03 ; 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.899 and Chronic hepatitis C without hepatic coma B18.2 [facility] [address] [facility] [id number] [address] [place] [id number] Oct, Schizoaffective disorder, de pressive type F25.1 and Other supervisor intermediates (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.899 [facility] [address] [facility] [id number] [address] [place] [phone] Oct, [facility] [address] [facility] [facility] [id number] [address] [place] [address] 14 Oct, 2018 Sore throat J02.9 and Acute non-recurrent frontal sinusitis J01.10 [facility] [address] [facility] [id number] [address] [place] [phone] Oct, [facility] [address] [facility] [id number] [address] [place] [address] Oct, Acute URI J06.9 [facility] [address] [facility] [id number] [address] [place] [address] Oct, [facility] [address] [facility] [id number] [address] [place] [address] Oct, Schizoaffective disorder, de pressive type F25.1 [facility] [address] [facility] [id number] [address] [place] [address] Oct, [facility] [address] [facility] [id number] [address] [place] [address] Oct, Substance abuse F19.10 [facility] [address] [facility] [id number] [address] [place] [address] Oct, Bronchitis J40 [address] [id number] [address] September, Back pain M54.9 [facility] [address] [facility] [id number] [address] [place] [address] September, Schizoaffective disorder, de pressive type F25.1 [facility] [address] [facility] [id number] [address] [place] [address] September, [facility] [address] [facility] [id number] [address] September, Substance abuse F19.10 [facility] [address] [id number] [address] [place] [address] September, [facility] [address] [id number] [address] [place] [address] September, Schizoaffective disorder, de pressive type F25.1 [facility] [address] [id number] [address] [place] [address] September, Substance abuse F19.10 [facility] [address] [id number] [address] [place] [address] September, [facility] [address] [facility] [id number] [address] [place] [address] September, Substance abuse F19.10 [facility] [address] [facility] [id number] [address] [place] [address] September, Encounter for Medicare annua l wellness exam Z00.00 ; Ulcer of right foot, unspecified ulcer stage L97.519 ; Type 2 diabetes mellitus with other diabetic neurological complication E11.49 ; COPD (chronic obstructive pulmonary disease) J44.9 ; PAD (peripheral artery disease) I73.9 ; Schizoaffective disorder, depressive type F25.1 and Routine adult health maintenance Z00.00 [facility] [address] [id number] [address] [place] [address] September, Schizoaffective disorder, de pressive type F25.1 [facility] [address] [id number] [address] [place] [address] September, [facility] [address] [facility] [id number] [address] [place] [address] September, [facility] [address] [facility] [id number] [address] [place] [address] September, Schizoaffective disorder, de pressive type F25.1 [facility] [address] [facility] [id number] [address] [place] [address] Aug, [facility] [address] [facility] [id number] [address] [place] [address] Aug, Rib pain on left side R07.81 and Closed fracture of multiple ribs of left side with routine healing, subsequent encounter S22.42XD [facility] [address] [place] [id number] [address] [place] [address] Aug, [facility] [address] [place] [id number] [address] [place] [address] Aug, [facility] [address] [facility] [id number] [address] [place] [address] Jul, [facility] [address] [facility] [id number] [address] [place] [address] Jul, [facility] [address] [place] [id number] [address] [place] [address] Jul, [facility] [address] [facility] [id number] [address] [place] [address] Jul, Back pain M54.9 [facility] [address] [facility] [id number] [address] [place] [address] Jul, Polyneuropathy in diseases c lassified elsewhere G63 [facility] [address] [facility] [id number] [address] [place] [address] Jul, Constipation, unspecified co nstipation type K59.00 and Burn T30.0 [facility] [address] [id number] [address] [place] [address] Jul, [facility] [address] [id number] [address] [place] [address] Jun, 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 [facility] [address] [id number] [address] [place] [address] Jun, Back pain M54.9 [facility] [address] [id number] [address] [place] [address] Jun, 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 [facility] [address] [id number] [address] [place] [address] Jun, [facility] [address] [facility] [id number] [address] [place] [address] Jun, [facility] [address] [id number] [address] [place] [address] Jun, [facility] [address] [id number] [address] [place] [address] May, [facility] [address] [facility] [id number] [address] [place] [address] May, Back pain M54.9 [facility] [address] [id number] [address] [place] [address] May, [facility] [address] [facility] [id number] [address] [place] [address] May, 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 ; Chronic hepatitis C without hepatic coma B18.2 and HTN (hypertension) I10 [facility] [address] [id number] [address] [place] [address] Apr, Back pain M54.9 [facility] [address] [facility] [id number] [address] [place] [address] Apr, [facility] [address] [id number] [address] [place] [address] Apr, Polyneuropathy in diseases c lassified elsewhere G63 [facility] [address] [id number] [address] [place] [address] Mar, Back pain M54.9 [facility] [address] [id number] [address] [place] [address] Mar, [facility] [address] [id number] [address] [place] [address] Mar, Back pain M54.9 [facility] [address] [id number] [address] [place] [address] Mar, [facility] [address] [id number] [address] [place] [address] Mar, [facility] [address] [id number] [address] [place] [address] Mar, Polyneuropathy in diseases c lassified elsewhere G63 [facility] [address] [id number] [address] [place] [address] Feb, Back pain M54.9 [facility] [address] [id number] [address] [place] [address] Jan, Back pain M54.9 [facility] [address] [id number] [address] [place] [address] Jan, [facility] [address] [id number] [address] [place] [address] Jan, [facility] [address] [id number] [address] [place] [address] Dec, Back pain M54.9 [facility] [address] [id number] [address] [place] [address] Dec, [facility] [address] [id number] [address] [place] [address] Dec, Upper respiratory tract infe ction, unspecified type J06.9 [facility] [address] [id number] [address] [place] [address] Dec, [facility] [address] [id number] [address] [place] [address] Dec, Acute suppurative otitis med ia of right ear without spontaneous rupture of tympanic membrane, recurrence not specified H66.001 and Acute nasopharyngitis J00 [facility] [address] [id number] [address] [place] [address] Dec, Back pain M54.9 [facility] [address] [id number] [address] [place] [address] Dec, Foot infection L08.9 and 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 [facility] [address] [facility] [id number] [address] [place] [address] Nov, Cellulitis of toe of right f oot L03.031 ; Polyneuropathy in diseases classified elsewhere G63 and HTN (hypertension) I10 [facility] [address] [facility] [id number] [address] [place] [address] Nov, [facility] [address] [facility] [id number] [address] [place] [address] Nov, [facility] [address] [id number] [address] [place] [address] Nov, Back pain M54.9 [facility] [address] [id number] [address] [place] [address] Nov, Shortness of breath R06.02 [facility] [address] [facility] [id number] [address] [place] [address] Nov, [facility] [address] [facility] [id number] [address] [place] [address] Oct, [facility] [address] [facility] [id number] [address] [place] [address] Oct, [facility] [address] [id number] [address] [place] [address] Oct, [facility] [address] [id number] [address] [place] [address] Oct, [facility] [address] [id number] [address] [place] [address] Oct, [facility] [address] [id number] [address] [place] [address] Oct, Back pain M54.9 [facility] [address] [id number] [address] [place] [address] Oct, Back pain M54.9 [facility] [address] [id number] [address] [place] [address] Oct, [facility] [address] [id number] [address] [place] [address] September, [facility] [address] [id number] [address] [place] [address] September, [facility] [address] [id number] [address] [place] [address] September, [facility] [address] [id number] [address] [place] [address] September, 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 and Hypotension, unspecified hypotension type I95.9 [facility] [address] [id number] [address] [place] [address] September, [facility] [address] [id number] [address] [place] [address] September, [facility] [address] [id number] [address] [place] [address] September, Back pain M54.9 [facility] [address] [id number] [address] [place] [address] Aug, [facility] [address] [address] Aug, Acute cystitis with hematuri a N30.01 ; Ulcer of right foot, unspecified ulcer stage L97.519 ; HTN (hypertension) I10 ; COPD (chronic obstructive pulmonary disease) J44.9 and DM neuro manif type II E11.49 [place] [address] [address] Aug, Back pain M54.9 [place] [address] [address] Jul, [place] [address] [address] Jul, Back pain M54.9 [place] [address] [address] Jul, [place] [address] [address] Jul, DM neuro manif type II E11.4 9 and Ulcer of right foot, unspecified ulcer stage L97.519 [place] [address] [address] Jun, [place] [address] [address] Jun, [place] [address] [address] May, 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 ; GERD (gastroesophageal reflux disease) K21.9 and PAD (peripheral artery disease) I73.9 [place] [address] [address] May, Decubital ulcer L89.90 ; Nathalia betes E11.9 and GERD (gastroesophageal reflux disease) K21.9 [place] [address] [address] May, [place] [address] [facility] [id number] [address] [place] [address] Apr, [facility] [address] [facility] [id number] [address] [place] [address] Mar, [facility] [address] [id number] [address] [place] [address] Mar, [facility] [address] [facility] [id number] [address] [place] [address] Feb, [facility] [address] [id number] [address] [place] [address] Feb, [facility] [address] [facility] [id number] [address] [place] [address] Jan, [facility] [address] [facility] [id number] [address] [place] [address] Jan, HTN (hypertension) I10 [facility] [address] [facility] [id number] [address] [place] [address] Jan, [facility] [address] [facility] [id number] [address] [place] [address] Dec, Back pain M54.9 [facility] [address] [facility] [id number] [address] [place] [address] Dec, Back pain M54.9 [facility] [address] [facility] [id number] [address] [place] [address] Dec, Encounter for immunization Z 23 and Puncture wound of right foot, initial encounter S91.331A [facility] [address] [facility] [id number] [address] [place] [address] Dec, [facility] [address] [facility] [id number] [address] [place] [address] Nov, [facility] [address] [facility] [id number] [address] [place] [address] Nov, COPD (chronic obstructive pu lmonary disease) J44.9 [facility] [address] [id number] [address] [place] [address] Nov, [facility] [address] [id number] [address] [place] [address] Oct, [facility] [address] [id number] [address] [place] [address] Oct, [facility] [address] [id number] [address] [place] [address] September, Onychomycosis B35.1 and DM n euro manif type II E11.49 [facility] [address] [id number] [address] [place] [address] September, [facility] [address] [id number] [address] [place] [address] Aug, [facility] [address] [facility] [id number] [address] [place] [address] Jul, Sinusitis, unspecified chron icity, unspecified location J32.9 and Cough R05 [facility] [address] [id number] [address] [place] [address] Jul, Back pain M54.9 [facility] [address] [id number] [address] [place] [address] 14 Jun, 2016 Back pain M54.9 [facility] [address] [id number] [address] [place] [address] 06 Jun, 2016 COPD (chronic obstructive pu lmonary disease) J44.9 [facility] [address] [id number] [address] [place] [address] May, [facility] [address] [id number] [address] [place] [address] May, [facility] [address] [id number] [address] [place] [address] May, Back pain M54.9 [facility] [address] [id number] [address] [place] [address] 16 May, 2016 [facility] [address] [id number] [address] [place] [address] 13 May, 2016 [facility] [address] [facility] [id number] [address] [place] [address] 12 May, 2016 Diabetes E11.9 [facility] [address] [id number] [address] [place] [address] 11 May, 2016 Diabetes E11.9 ; GERD (gastr oesophageal reflux disease) K21.9 ; Back pain M54.9 [...] test Z11.59 [facility] [address] [id number] [address] [place] [address] 04 May, 2016 HTN (hypertension) I10 [facility] [address] [id number] [address] [place] [address] Apr, [facility] [address] [id number] [address] [place] [address] Apr, [facility] [address] [facility] [id number] [address] [place] [address] Apr, [facility] [address] [id number] [address] [place] [address] Apr, [facility] [address] [id number] [address] [place] [address] Apr, [facility] [address] [id number] [address] [place] [address] Mar, [facility] [address] [facility] [id number] [address] [place] [address] Mar, [facility] [address] [id number] [address] [place] [address] Mar, [facility] [address] [facility] [id number] [address] [place] [address] Mar, [facility] [address] [facility] [id number] [address] [place] [address] Mar, Dental examination Z01.20 [facility] [address] [facility] [id number] [address] [place] [address] Feb, [facility] [address] [facility] [id number] [address] [place] [address] Feb, [facility] [address] [facility] [id number] [place] [id number] Feb, Back pain M54.9 [place] [address] [facility] [id number] [address] [place] [address] Jan, [facility] [address] [place] [id number] [place] [address] Jan, [facility] [address] [facility] [id number] [address] [place] [phone] Dec, Diabetes E11.9 ; GERD (gastr oesophageal reflux disease) K21.9 ; ED (erectile dysfunction) N52.9 ; HTN (hypertension) I10 ; Insomnia G47.00 ; COPD (chronic obstructive pulmonary disease) J44.9 ; Neuropathy G62.9 and Bipolar depression F31.30 [facility] [address] [facility] [id number] [address] [place] [address] Dec, 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 and Onychomycosis B35.1 [facility] [address] [facility] [id number] [address] [place] [phone] Dec, [facility] [address] [facility] [id number] [address] [place] [phone] Dec, [facility] [address] [facility] [id number] [address] [place] [id number] Dec, [facility] [address] [id number] [address] [place] [id number] Dec, [facility] [address] [id number] [address] [place] [phone] Nov, [facility] [address] [id number] [address] [place] [phone] Nov, [facility] [address] [id number] [address] [place] [id number] Oct, [facility] [address] [id number] [address] [place] [id number] Oct, [facility] [address] [id number] [address] [place] [phone] Oct, Back pain M54.9 [facility] [address] [id number] [address] [place] [phone] Oct, [facility] [address] [id number] [address] [place] [phone] Oct, [facility] [address] [id number] [address] [place] [phone] Oct, [facility] [address] [id number] [address] [place] [id number] Oct, HTN (hypertension) I10 [facility] [address] [id number] [address] [place] [phone] Oct, Back pain M54.9 [facility] [address] [id number] [address] [place] [phone] Oct, Chronic pain syndrome G89.4 [facility] [address] [id number] [address] [place] [phone] September, Back pain M54.9 [facility] [address] [id number] [address] [place] [phone] September, HTN (hypertension) I10 [facility] [address] [id number] [address] [place] [phone] Aug, Porokeratosis Q82.8 ; Onycho mycosis B35.1 and Type 2 diabetes mellitus with other diabetic neurological complication E11.49 [facility] [address] [facility] [id number] [address] [place] [phone] Aug, GERD (gastroesophageal reflu x disease) K21.9 ; Diabetes E11.9 ; HTN (hypertension) I10 ; Insomnia G47.00 ; Restless legs syndrome G25.81 ; COPD (chronic obstructive pulmonary disease) J44.9 ; Back pain M54.9 and Bipolar 1 disorder F31.9 [facility] [address] [facility] [id number] [address] [place] [id number] Aug, [facility] [address] [facility] [id number] [address] [place] [phone] Aug, [facility] [address] [facility] [id number] [address] [place] [id number] Aug, [facility] [address] [facility] [facility] [id number] [address] [place] [address] Aug, [facility] [address] [facility] [id number] [address] [place] [address] Jul, [facility] [address] [facility] [id number] [address] [place] [address] Jul, [facility] [address] [facility] [id number] [address] [place] [id number] 30 Jul, 2015 [facility] [address] [facility] [id number] [address] [place] [address] 16 Jul, 2015 [facility] [address] [facility] [id number] [address] [place] [address] 15 Jul, 2015 [facility] [address] [facility] [id number] [address] [place] [address] 03 Jul, 2015 [facility] [address] [facility] [id number] [address] [place] [address] 17 Jun, 2015 Decubital ulcer L89.90 ; Nathalia betes E11.9 ; Back pain M54.9 ; HTN (hypertension) I10 and COPD (chronic obstructive pulmonary disease) J44.9 [facility] [address] [facility] [id number] [address] [place] [address] Jun, [facility] [address] [facility] [id number] [address] [place] [address] Jun, [place] [address] [facility] [id number] [place] [address] Jun, [facility] [address] [facility] [id number] [address] [address] Jun, [place] [address] [address] Jun, Diabetes E11.9 ; Insomnia G4 7.00 ; Decubital ulcer L89.90 ; GERD (gastroesophageal reflux disease) K21.9 ; Back pain M54.9 ; Superficial fungus infection of skin B36.9 and HTN (hypertension) I10 [id number] [place] [id number] Jun, Dental examination Z01.20 [place] [address] [facility] [id number] [address] [place] [address] May, [place] [address] [facility] [id number] [address] [place] [address] May, [place] [address] [facility] [id number] [address] [place] [address] May, [place] [address] [facility] [id number] [place] [address] May, Diabetes E11.9 ; HTN (hypert ension) I10 and Decubital ulcer L89.90 [place] [address] [facility] [id number] [address] [place] [address] May, HTN (hypertension) I10 ; Dec ubital ulcer L89.90 and Diabetes E11.9 [place] [address] [place] [id number] [address] [place] [address] 30 Apr, 2015 Diabetes E11.9 ; GERD (gastr oesophageal reflux disease) K21.9 ; Back pain M54.9 ; HTN (hypertension) I10 ; Restless legs syndrome G25.81 and Decubital ulcer L89.90 [facility] [address] [address] 17 Apr, 2015 [facility] [address] [address] 15 Apr, 2015 Diabetes E11.9 ; HTN (hypert ension) I10 ; Restless legs syndrome G25.81 ; GERD (gastroesophageal reflux disease) K21.9 and COPD (chronic obstructive pulmonary disease) J44.9 [place] [address] [address] Mar, [place] [address] [address] Mar, [facility] [address] [address] Mar, Diabetes E11.9 ; Abscess L02 .91 and Restless legs syndrome G25.81 [place] [address] [address] Mar, [facility] [address] [address] Feb, GERD (gastroesophageal reflu x disease) K21.9 ; Back pain M54.9 ; ED (erectile dysfunction) N52.9 ; Diabetes E11.9 ; HTN (hypertension) I10 and Insomnia G47.00 [place] [address] [address] Feb, [facility] [address] [place] [id number] [place] [address] Feb, [facility] [address] [address] Jan, [facility] [address] [place] [id number] [address] [place] [address] Jan, Diabetes 250.00 ; Nondepende nt cannabis abuse, continuous 305.21 ; Cough 786.2 ; Schizoaffective disorder, unspecified 295.70 ; Sciatica 724.3 ; Other, mixed, or unspecified nondependent drug abuse, unspecified 305.90 ; Chronic pain 338.29 ; GERD (gastroesophageal reflux disease) 530.81 and HTN (hypertension) 401.9 [facility] [address] [address] Jan, [facility] [address] [address] Jan, [facility] [address] [address] Jan, Chronic pain associated with significant psychosocial dysfunction 338.4 ; Diabetes mellitus without mention of complication, type I [juvenile type], uncontrolled 250.03 ; Benign essential hypertension 401.1 ; Schizoaffective disorder, unspecified 295.70 ; Wheezing 786.07 ; Ear ache 388.70 ; Cough 786.2 ; Sciatica 724.3 and Foot pain, bilateral 729.5 [facility] [address] [place] [id number] [address] [place] [address] Dec, [facility] [address] [place] [id number] [address] [place] [address] Dec, [facility] [address] [address] Dec, [facility] [address] [address] Dec, [facility] [address] [address] Dec, [facility] [address] [place] [id number] [address] [place] [address] Nov, Elevated liver enzymes 790.5 [place] [id number] [id number] [address] [place] [address] Nov, [facility] [address] [id number] [address] [place] [address] Nov, [facility] [address] [id number] [address] [place] [address] Nov, [facility] [address] [id number] [address] [place] [address] Nov, Benign essential hypertensio n 401.1 ; Diabetes mellitus without mention of complication, type I [juvenile type], uncontrolled 250.03 and Nondependent cannabis abuse, continuous 305.21 [facility] [address] [id number] [address] [place] [address] Oct, Cellulitis 682.9 and Benign essential hypertension 401.1 [facility] [address] [id number] [address] [place] [address] Oct, [facility] [address] [id number] [address] [place] [address] September, [facility] [address] [id number] [address] [place] [address] September, [facility] [address] [id number] [address] [place] [address] Aug, [facility] [address] [id number] [address] [place] [address] Aug, [facility] [address] [id number] [address] [place] [address] Aug, [facility] [address] [id number] [address] [place] [address] Aug, [facility] [address] [id number] [address] [place] [address] Jul, [facility] [address] [id number] [address] [place] [address] Jul, [facility] [address] [id number] [address] [place] [address], [place] [address] Jul, [facility] [address] [id number] [address] [place] [address], [place] [address] Jul, [facility] [address] [id number] [address] [place] [address], [place] [address] Jul, [facility] [address] [id number] [address] [place] [address], [place] [address] Jul, [facility] [address] [id number] [address] [place] [address], [place] [address] Jun, [facility] [address] [id number] [address] [place] [address], [place] [address] Jun, [facility] [address] [id number] [address] [place] [address], [place] [address] Jun, [facility] [address] [id number] [address] [place] [address], [place] [address] Jun, [facility] [address] [id number] [address] [place] [address], [place] [address] Jun, [facility] [address] [id number] [address] [place] [address], [place] [address] May, [facility] [address] [id number] [address] [place] [address], [place] [address] May, [facility] [address] [id number] [address] [place] [address], [place] [address] May, [facility] [address] [id number] [address] [place] [address], [place] [address] May, [facility] [address] [id number] [address] [place] [address], [place] [address] May, [facility] [address] [id number] [address] [place] [address], [place] [address] May, [facility] [address] [id number] [address] [place] [address] May, [facility] [address] [id number] [address] [place] [address], [place] [address] May, [facility] [address] [id number] [address] [place] [address], [place] [address] Apr, [facility] [address] [id number] [address] [place] [address], [place] [address] Apr, [facility] [address] [id number] [address] [place] [address], [place] [address] Apr, [facility] [address] [id number] [address] [place] [address], [place] [address] Apr, [facility] [address] [id number] [address] [place] [address], [place] [address] Mar, [facility] [address] [id number] [address] [place] [address], [place] [address] Mar, [facility] [address] [id number] [address] [place] [address], [place] [address] Mar, [facility] [address] [id number] [address] [place] [address], [place] [address] Mar, [facility] [address] [id number] [address] [place] [address], [place] [address] Feb, [facility] [address] [id number] [address] [place] [address], [place] [address] Feb, [facility] [address] [id number] [address] [place] [address] Feb, [facility] [address] [id number] [address] [place] [address], [place] [address] Feb, [facility] [address] [id number] [address] [place] [address], [place] [address] Feb, [facility] [address] [id number] [address] [place] [address], [place] [address] Feb, [facility] [address] [id number] [facility] [place] [address] Jan, 2013 [facility] [address] [id number] [facility] [place] [address] Jan, [facility] [address] [id number] [facility] [place] [address] Jan, [facility] [address] [id number] [facility] [place] [address] Jan, [facility] [address] [id number] [facility] [place] [address] Dec, [facility] [address] [id number] [address] [place] [address], [place] [address] Dec, [facility] [address] [id number] [address] [place] [address], [place] [address] Dec, [facility] [address] [id number] [address] [place] [address], [place] [address] Dec, [facility] [address] [id number] [address] [place] [address], [place] [address] Dec, [facility] [address] [id number] [address] [place] [address], [place] [address] Dec, [facility] [address] [id number] [address] [place] [address], [place] [address] Oct, [facility] [address] [id number] [address] [place] [address], [place] [address] Oct, [facility] [address] [id number] [address] [place] [address], [place] [address] September, [facility] [address] [id number] [address] [place] [address], [place] [address] September, [facility] [address] [id number] [address] [place] [address], [place] [address] September, [facility] [address] [id number] [address] [place] [address], [place] [address] September, [facility] [address] [id number] [facility] [place] [address] September, [facility] [address] [id number] [address] [place] [address], [place] [address] September, [facility] [address] [id number] [address] [place] [address], [place] [address] Aug, [facility] [address] [id number] [address] [place] [address], [place] [address] Aug, [facility] [address] [id number] [address] [place] [address], [place] [address] Aug, [facility] [address] [id number] [address] [place] [address], [place] [address] Aug, [facility] [address] [id number] [address] [place] [address], [place] [address] Jul, [facility] [address] [id number] [address] [place] [address], [place] [address] Jul, [facility] [address] [id number] [address] [place] [address], [place] [address] Jun, [facility] [address] [id number] [address] [place] [address], [place] [address] Jun, [facility] [address] [id number] [address] [place] [address], [place] [address] May, [facility] [address] [id number] [address] [place] [address], [place] [address] May, [facility] [address] [id number] [address] [place] [address], [place] [address] Jan, [facility] [address] [id number] [address] [place] [address], [place] [address] Dec, [facility] [address] [id number] [address] [place] [address], [place] [address] Jun, [facility] [address] [id number] [address] [place] [address], [place] [address] May, [facility] [address] [id number] [address] [place] [address], [place] [address] Nov, [facility] [address] [id number] [address] [place] [address], [place] [address] September, [facility] [address] [id number] [address] [place] [address], [place] [address] Aug, [facility] [address] [id number] [address] [place] [address], [place] [address] Aug, [facility] [address] [id number] [address] [place] [address], [place] [address] Aug, [facility] [address] [id number] [address] [place] [address], [place] [address] Aug, [facility] [address] [id number] [address] [place] [address], [place] [address] Nov, [facility] [address] [id number] [address] [place] [address], [place] [address] Oct, [facility] [address] [id number] [address] [place] [address], [place] [address] Jul, [facility] [address] [id number] [address] [place] [address], [place] [address] Feb, [facility] [address] [id number] [address] [place] [address], [place] [address] Feb, [facility] [address] [id number] [address] [place] [address], [place] [address] Apr, [facility] [address] [id number] [address] [place] [address], [place] [address] Apr, [facility] [address] [id number] [address] [place] [address], [place] [address] Feb, [facility] [address] [id number] [address] [place] [address], [place] [address] Feb, [facility] [address] [facility] [id number] [address] [place] [address] 14 Jul, 2008 IMMUNIZATIONS No Known Immunizations [...] toe amputated Surgical History Right little toe amputation Surgical History right big toe amputated 01/2019 Surgical History scopes - twail checking for stones 02/09 019 Surgical History wound care on right toes - dr erickson 04/11 019 Surgical History Rt toe amputation 06/2019 Hospitalization History Psych hospitalizations(numerous) Hospitalization History for surgeries Hospitalization History UTI 08/27/17 Hospitalization History foot wound 09/2017 Hospitalization History [facility] OD on drugs 09/15/2018 Hospitalization History [facility] 03/28/19 Hospitalization History [facility]- Toe amputation 01/2019
--- OUTSIDE RECORDS SUMMARY | 2019-09-09 08:30 | XMS REPORT ---
Author Author Sahil JAMESON NA [facility] Organization [facility] Address [address] [place] [address] Care Team Providers Care Roaster Helper Name Role Phone MICHAEL CEDILLOMELIZA Unavailable PROBLEMS Type Condition ICD9-CM Code UZP07-OO Code Onset Dates Condition S tatus SNOMED Code Problem Restless legs syndrome G25.81 Active 996765027 Problem GERD (gastroesophageal reflux disease) K21.9 Active 662079697 Problem Sinusitis, unspecified chronicity, unspecified location J32.9 Active 08314230 Problem COPD (chronic obstructive pulmonary disease) J44.9 Active 80962439 Problem Ulcer of right foot, unspecified ulcer stage L97.5 19 Active 17118442 Problem DM neuro manif type II E11.49 Active 69132576 Problem Constipation, unspecified constipation type K59.00 Active 43802379 Problem Schizoaffective disorder, depressive type F25.1 Active 25193601 Problem PAD (peripheral artery disease) I73.9 Active 748226017 Problem Chronic hepatitis C without hepatic coma B18.2 Active 685429978 Problem Polyneuropathy G62.9 Active 78200 000 Problem Alcohol use disorder, severe, dependence F10.20 Active 76612561 Problem Methamphetamine use disorder, severe, 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 Active 041374467 Problem Morbid (severe) obesity due to excess calories E66 .01 Active 419252743 Problem Neuropathy G62.9 Active 928171073 Problem ED (erectile dysfunction) N52.9 Acti ve 266685503 Problem 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 [address] [facility] [place] [facility] [place] [id number] [address] [place] [address] Oct, [facility] [address] [place] [id number] [address] [place] [phone] 17 Aug, 2019 Schizoaffective disorder, de pressive type F25.1 ; Other mcc (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.899 and Stimulant use disorder F15.90 [facility] [address] [facility] [place] [place] [id number] [address] [place] [phone] Aug, [facility] [address] [place] [id number] [address] [place] [address] Aug, [facility] [address] [place] [id number] [address] [place] [phone] Aug, [facility] [address] [place] [id number] [address] [place] [phone] Aug, Chronic hepatitis C without hepatic coma B18.2 [facility] [address] [place] [place] [id number] [address] [place] [phone] 06 Aug, 2019 [facility] [address] [facility] [place] [id number] [address] [place] [address] Aug, [facility] [address] [place] [id number] [address] [place] [phone] Aug, Polyneuropathy G62.9 [facility] [address] [facility] [place] [id number] [address] [place] [phone] 24 Jul, 2019 [facility] [address] [facility] [place] [id number] [address] [place] [id number] 23 Jul, 2019 [facility] [address] [facility] [place] [id number] [address] [place] [phone] 18 Jul, 2019 [facility] [address] [place] [id number] [address] [place] [phone] 10 Jul, 2019 [facility] [place] [address] [id number] [address] [place] [phone] 10 Jul, 2019 [facility] [place] [address] [id number] [address] [place] [phone] 09 Jul, 2019 [facility] [place] [address] [id number] [address] [place] [phone] 09 Jul, 2019 [facility] [place] [address] [id number] [address] [place] [phone] 06 Jul, 2019 [facility] [place] [address] [id number] [address] [place] [phone] 04 Jul, 2019 [facility] [place] [address] [id number] [address] [place] [phone] 04 Jul, 2019 Polyneuropathy G62.9 [facility] [place] [address] [id number] [address] [place] [phone] 27 Jun, 2019 [facility] [place] [address] [id number] [address] [place] [phone] 17 Jun, 2019 [facility] [place] [address] [id number] [address] [place] [phone] 17 Jun, 2019 [facility] [place] [address] [id number] [address] [place] [phone] 10 Jun, 2019 [facility] [place] [address] [id number] [address] [place] [phone] 05 Jun, 2019 [facility] [place] [address] [id number] [address] [place] [phone] 04 Jun, 2019 Polyneuropathy G62.9 [facility] [place] [address] [id number] [address] [place] [phone] May, [facility] [place] [address] [id number] [address] [place] [phone] May, Foot callus L84 [facility] [place] [address] [id number] [address] [place] [phone] May, [facility] [address] [id number] [address] [place] [phone] May, [facility] [address] [facility] [place] [id number] [address] [place] [phone] May, 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 [address] [facility] [place] [id number] [address] [place] [phone] May, [facility] [address] [facility] [place] [id number] [address] [place] [phone] May, [facility] [address] [facility] [place] [id number] [address] [place] [phone] May, [facility] [address] [facility] [place] [id number] [address] [place] [phone] May, [facility] [address] [facility] [facility] [place] [id number] [address] [place] [phone] May, [facility] [address] [facility] [place] [id number] [address] [place] [phone] May, Chronic hepatitis C without hepatic coma B18.2 and HTN (hypertension) I10 [facility] [address] [facility] [place] [id number] [address] [place] [phone] May, Neuropathy G62.9 [facility] [address] [facility] [place] [id number] [address] [place] [phone] Apr, [address] [id number] [address] Apr, [facility] [address] [facility] [place] [id number] [address] [place] [phone] Apr, [facility] [address] [facility] [place] [id number] [address] [place] [phone] Apr, [facility] [address] [facility] [place] [place] [id number] [address] [place] [phone] Apr, [facility] [address] [facility] [place] [place] [id number] [address] [place] [phone] Apr, [facility] [address] [facility] [place] [id number] [address] [place] [phone] Apr, [facility] [address] [facility] [place] [id number] [address] [place] [address] Apr, Ulcer of right foot, unspeci fied ulcer stage L97.519 ; Type 2 diabetes mellitus with other diabetic neurological complication E11.49 ; Onychomycosis B35.1 and Hammer toe, unspecified laterality M20.40 [facility] [address] [facility] [place] [place] [id number] [address] [place] [id number] Apr, [facility] [address] [facility] [place] [place] [id number] [address] [place] [address] Apr, HTN (hypertension) I10 and U lcer of toe of right foot, unspecified ulcer stage L97.519 [facility] [address] [facility] [place] [place] [id number] [address] [place] [phone] Apr, [facility] [address] [facility] [place] [id number] [address] [place] [address] Apr, Schizoaffective disorder, de pressive type F25.1 ; Other mcc (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.899 and Stimulant use disorder F15.90 [facility] [address] [facility] [facility] [place] [id number] [address] [place] [phone] Apr, [facility] [address] [place] [place] [id number] [address] [place] [phone] Apr, [facility] [address] [facility] [place] [id number] [address] [place] [phone] Apr, [facility] [address] [facility] [place] [id number] [address] [place] [phone] Mar, Pre-ulcerative calluses L84 [facility] [address] [facility] [place] [place] [id number] [address] [place] [address] Mar, HTN (hypertension) I10 ; DM neuro manif type II E11.49 ; Morbid (severe) obesity due to excess calories E66.[address] [facility] [address] [facility] [place] [place] [id number] [address] [place] [address] Mar, [facility] [address] [facility] [place] [id number] [address] [place] [address] Mar, [facility] [address] [address] Mar, Onychomycosis B35.1 ; Callus of foot L84 and Hammer toe, unspecified laterality M20.40 [facility] [address] [place] [id number] [address] [place] [phone] Mar, Neuropathy G62.9 [facility] [address] [facility] [place] [id number] [address] [place] [phone] Mar, [facility] [address] [place] [place] [id number] [address] [place] [phone] Mar, [facility] [address] [facility] [place] [id number] [address] [place] [phone] Mar, [facility] [address] [facility] [place] [place] [id number] [address] [place] [address] Mar, Constipation, unspecified co nstipation type K59.00 [facility] [address] [facility] [place] [id number] [address] [place] [address] Mar, [facility] [address] [place] [id number] [address] [place] [phone] Mar, [facility] [address] [facility] [place] [id number] [address] [place] [address] Mar, Chronic hepatitis C without hepatic coma B18.2 ; High risk medication use Z79.899 and Encounter for immunization Z23 [facility] [address] [facility] [place] [id number] [address] [place] [phone] Mar, [facility] [address] [facility] [place] [id number] [address] [place] [phone] Mar, Neuropathy G62.9 [facility] [address] [facility] [place] [id number] [address] [place] [address] Mar, High risk sexual behavior, u nspecified type Z72.51 [facility] [address] [facility] [place] [place] [id number] [address] [place] [address] Feb, Callus of foot L84 [place] [address] [phone] Feb, Callus of foot L84 [place] [address] [place] [id number] [address] [place] [address] Feb, [place] [address] [place] [id number] [address] [place] [address] Feb, [facility] [address] [place] [place] [id number] [place] [address] Feb, Methamphetamine use disorder, severe, de pendence F15.20 ; Alcohol use disorder, severe, dependence F10.20 and Cannabis use disorder, severe, dependence F12.20 [facility] [address] [facility] [place] [id number] [address] [place] [address] Feb, Chronic hepatitis C without hepatic coma B18.2 [facility] [address] [place] [id number] [place] [address] Feb, Methamphetamine use disorder, severe, de pendence F15.20 ; Alcohol use disorder, severe, dependence F10.20 and Cannabis use disorder, severe, dependence F12.20 [facility] [address] [facility] [place] [place] [id number] [address] [place] [address] Feb, [facility] [address] [facility] [place] [place] [id number] [address] [place] [address] Feb, Chronic hepatitis C without hepatic coma B18.2 [facility] [address] [facility] [place] [facility] [place] [id number] [place] [address] Feb, Methamphetamine use disorder, severe, de pendence F15.20 ; Alcohol use disorder, severe, dependence F10.20 and Cannabis use disorder, severe, dependence F12.20 [facility] [address] [facility] [place] [place] [id number] [address] [place] [phone] Feb, [facility] [address] [facility] [place] [place] [id number] [address] [place] [phone] Feb, [facility] [address] [place] [id number] [address] [place] [phone] Feb, [facility] [address] [place] [place] [id number] [address] [place] [phone] Feb, [facility] [address] [facility] [place] [place] [id number] [address] [place] [address] Feb, Neuropathy G62.9 [facility] [address] [place] [id number] [address] [place] [address] Feb, Schizoaffective disorder, de pressive type F25.1 ; Other mcc (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.899 and Stimulant use disorder F15.90 [facility] [address] [facility] [place] [place] [id number] [address] [place] [phone] Feb, Onychomycosis B35.1 [address] Ne[address] opathy G62.9 [facility] [address] [facility] [place] [place] [id number] [address] [place] [phone] Feb, [facility] [address] [facility] [place] [place] [id number] [address] [place] [phone] Feb, [facility] [address] [place] [id number] [address] [place] [address] Feb, [facility] [address] [id number] [place] [address] Feb, Methamphetamine use disorder, severe, de pendence F15.20 ; Alcohol use disorder, severe, dependence F10.20 and Cannabis use disorder, severe, dependence F12.20 [facility] [address] [facility] [facility] [place] [id number] [address] [place] [address] Feb, Chronic hepatitis C without hepatic coma B18.2 and Encounter for immunization Z23 [facility] [address] [id number] [address] [place] [phone] Jan, [facility] [address] [facility] [facility] [place] [id number] [address] [place] [address] Jan, [facility] [address] [facility] [facility] [place] [id number] [address] [place] [phone] Jan, [facility] [address] [facility] [place] [place] [id number] [place] [address] Jan, Methamphetamine use disorder, severe, de pendence F15.20 ; Alcohol use disorder, severe, dependence F10.20 and Cannabis use disorder, severe, dependence F12.20 [facility] [address] [facility] [facility] [place] [id number] [address] [place] [phone] Jan, [facility] [address] [facility] [facility] [place] [id number] [address] [place] [phone] Jan, [facility] [address] [facility] [facility] [place] [id number] [address] [place] [address] Jan, History of amputation Z89.9 [facility] [address] [id number] [address] [place] [id number] Jan, [facility] [address] [facility] [facility] [place] [id number] [address] [place] [phone] Jan, [facility] [address] [facility] [facility] [place] [id number] [address] [place] [phone] Jan, [facility] [address] [id number] [address] [place] [phone] 19 Jan, 2019 [facility] [address] [id number] [address] [place] [phone] 18 Jan, 2019 [facility] [address] [id number] [address] [place] [phone] 18 Jan, 2019 [facility] [address] [id number] [address] [place] [phone] 18 Jan, 2019 [facility] [address] [id number] [address] [place] [phone] 18 Jan, 2019 [facility] [address] [id number] [place] [phone] 18 Jan, 2019 Methamphetamine use disorder, severe, de pendence F15.20 ; Alcohol use disorder, severe, dependence F10.20 and Cannabis use disorder, severe, dependence F12.20 [facility] [address] [facility] [facility] [place] [id number] [address] [place] [id number] 18 Jan, 2019 [facility] [address] [id number] [address] [place] [phone] [address] Jan, [address] [facility] [address] [facility] [place] [id number] [address] [place] [phone] 13 Jan, 2019 [facility] [address] [facility] [place] [id number] [place] [phone] Jan, Methamphetamine use disorder, severe, de pendence F15.20 ; Alcohol use disorder, severe, dependence F10.20 and Cannabis use disorder, severe, dependence F12.20 [facility] [address] [id number] [place] [phone] 06 Jan, 2019 Methamphetamine use disorder, severe, de pendence F15.20 ; Cannabis use disorder, severe, dependence F12.20 and Alcohol use disorder, severe, dependence F10.20 [facility] [address] [facility] [facility] [place] [id number] [address] [place] [phone] 06 Jan, 2019 Chronic hepatitis C without hepatic coma B18.2 [facility] [address] [facility] [facility] [place] [id number] [address] [place] [phone] Jan, Neuropathy G62.9 [facility] [address] [facility] [place] [facility] [place] [id number] [address] [place] [phone] Jan, [facility] [address] [place] [id number] [address] [place] [phone] Jan, [facility] [address] [place] [id number] [place] [phone] Jan, Chronic hepatitis C without hepatic coma B18.2 [facility] [address] [place] [id number] [address] [place] [phone] Dec, Right foot pain M79.671 [place] [address] [id number] Dec, Schizoaffective disorder, de pressive type F25.1 ; Other mcc (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.899 and Stimulant use disorder F15.90 [facility] [address] [place] [id number] [address] [place] [phone] Dec, [facility] [address] [place] [phone] Dec, Methamphetamine use disorder, severe, de pendence F15.20 ; Alcohol use disorder, severe, dependence F10.20 and Cannabis use disorder, severe, dependence F12.20 [facility] [address] [id number] [address] [place] [phone] Dec, [facility] [address] [id number] [address] [place] [phone] Dec, [facility] [address] [id number] [address] [place] [phone] Dec, Ulcer of toe of right foot, unspecified ulcer stage L97.519 [facility] [address] [facility] [place] [id number] [address] [place] [phone] Dec, [facility] [address] [place] [address] Dec, Methamphetamine use disorder, severe, de pendence F15.20 ; Cannabis use disorder, severe, dependence F12.20 and Alcohol use disorder, severe, dependence F10.20 [facility] [address] [facility] [place] [id number] [address] [place] [phone] Dec, [facility] [address] [facility] [place] [id number] [address] [place] [phone] Dec, Allergic contact dermatitis, unspecified trigger L23.9 and Ankle swelling, unspecified laterality M25.473 [facility] [address] [facility] [place] [id number] [address] [place] [phone] Dec, [facility] [address] [id number] [address] [place] [phone] Dec, [facility] [id number] [place] [address] Dec, Methamphetamine use disorder, severe, de pendence F15.20 ; Alcohol use disorder, severe, dependence F10.20 and Cannabis use disorder, severe, dependence F12.20 [facility] [address] [id number] [address] [place] [phone] Dec, [facility] [address] [id number] [address] [place] [address] Dec, [place] [address] [id number] [address] [place] [phone] Dec, Diarrhea of presumed infecti ous origin R19.7 ; Chronic hepatitis C without hepatic coma B18.2 and Nail fungus B35.1 [facility] [address] [facility] [place] [id number] [address] [place] [phone] Dec, Neuropathy G62.9 [place] [address] [id number] [address] [place] [phone] Dec, [place] [address] [id number] [address] [place] [address] Nov, Schizoaffective disorder, de pressive type F25.1 ; Other mcc (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.899 and Stimulant use disorder F15.90 [facility] [address] [id number] [address] [place] [address] Nov, [facility] [id number] [place] [address] Nov, Substance abuse F19.10 [facility] [address] [id number] [address] [place] [address] Nov, [facility] [address] [id number] [address] [place] [phone] Nov, Chronic hepatitis C without hepatic coma B18.2 [facility] [address] [id number] [address] [place] [phone] Nov, [facility] [address] [facility] [place] [id number] [address] [place] [address] Nov, Fatigue, unspecified type R5 3.83 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 [address] [id number] [address] [place] [address] Nov, [facility] [address] [facility] [place] [id number] [address] [place] [address] Nov, [facility] [address] [id number] [address] [place] [address] Nov, [facility] [address] [facility] [place] [id number] [address] [place] [phone] Oct, Neuropathy G62.9 [facility] [address] [facility] [place] [id number] [address] [place] [address] Oct, Prediabetes R73.03 ; 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.899 and Chronic hepatitis C without hepatic coma B18.2 [facility] [address] [facility] [place] [id number] [address] [place] [address] Oct, Schizoaffective disorder, de pressive type F25.1 and Other mcc (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.899 [facility] [address] [facility] [place] [id number] [address] [place] [address] Oct, [facility] [address] [facility] [place] [id number] [address] [place] [phone] Oct, Sore throat J02.9 and Acute non-recurrent frontal sinusitis J01.10 [facility] [address] [facility] [place] [id number] [address] [place] [phone] Oct, [facility] [address] [facility] [place] [id number] [address] [place] [phone] Oct, Acute URI J06.9 [facility] [address] [facility] [place] [id number] [address] [place] [phone] Oct, [facility] [address] [facility] [place] [id number] [address] [place] [address] Oct, Schizoaffective disorder, de pressive type F25.1 [facility] [address] [facility] [place] [id number] [address] [place] [phone] Oct, [facility] [address] [facility] [place] [id number] [address] [place] [phone] Oct, Substance abuse F19.10 [facility] [address] [facility] [place] [id number] [address] [place] [phone] Oct, Bronchitis J40 [id number] [place] [phone] September, Back pain M54.9 [facility] [address] [facility] [place] [id number] [address] [place] [phone] September, Schizoaffective disorder, de pressive type F25.1 [facility] [address] [facility] [place] [id number] [address] [place] [phone] September, [address] [id number] [address] September, Substance abuse F19.10 [facility] [address] [facility] [place] [id number] [address] [place] [address] September, [facility] [address] [facility] [place] [id number] [address] [place] [address] September, Schizoaffective disorder, de pressive type F25.1 [facility] [address] [facility] [place] [id number] [address] [place] [address] September, Substance abuse F19.10 [facility] [address] [facility] [place] [id number] [address] [place] [phone] September, [facility] [address] [facility] [place] [id number] [address] [place] [phone] September, Substance abuse F19.10 [facility] [address] [facility] [place] [id number] [address] [place] [address] September, [facility] ; Ulcer of right foot, unspecified ulcer stage L97.519 ; Type 2 diabetes mellitus with other diabetic neurological complication E11.49 ; COPD (chronic obstructive pulmonary disease) J44.9 ; PAD (peripheral artery disease) I73.9 ; Schizoaffective disorder, depressive type F25.1 and Routine adult health maintenance Z00.00 [facility] [address] [facility] [place] [id number] [address] [place] [address] September, Schizoaffective disorder, de pressive type F25.1 [facility] [address] [facility] [place] [id number] [address] [place] [address] September, [facility] [address] [facility] [place] [id number] [address] [place] [phone] September, [facility] [address] [facility] [place] [id number] [address] [place] [address] September, Schizoaffective disorder, de pressive type F25.1 [facility] [address] [id number] [address] [place] [phone] Aug, [facility] [address] [facility] [place] [id number] [address] [place] [address] Aug, Rib pain on left side R07.81 and Closed fracture of multiple ribs of left side with routine healing, subsequent encounter S22.42XD [facility] [address] [id number] [address] [place] [address] Aug, [facility] [address] [id number] [address] [place] [address] Aug, [facility] [address] [facility] [place] [id number] [address] [place] [phone] Jul, [facility] [address] [facility] [place] [id number] [address] [place] [address] Jul, [facility] [address] [facility] [place] [id number] [address] [place] [address] Jul, [facility] [address] [facility] [place] [id number] [address] [place] [phone] Jul, Back pain M54.9 [facility] [address] [facility] [place] [id number] [address] [place] [phone] Jul, Polyneuropathy in diseases c lassified elsewhere G63 [facility] [address] [id number] [address] [place] [address] Jul, Constipation, unspecified co nstipation type K59.[address] [facility] [address] [facility] [place] [id number] [address] [place] [phone] Jul, [facility] [address] [facility] [place] [id number] [address] [place] [address] Jun, 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 [facility] [address] [id number] [address] [place] [address] Jun, Back pain M54.9 [facility] [address] [id number] [address] [place] [address] Jun, 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 [facility] [address] [id number] [address] [place] [phone] Jun, [facility] [address] [id number] [address] [place] [address] Jun, [facility] [address] [id number] [address] [place] [phone] Jun, [facility] [address] [id number] [address] [place] [address] May, [facility] [address] [id number] [address] [place] [address] May, Back pain M54.9 [facility] [address] [id number] [address] [place] [phone] May, [facility] [address] [facility] [place] [id number] [address] [place] [address] May, 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 ; Chronic hepatitis C without hepatic coma B18.2 and HTN (hypertension) I10 [facility] [address] [facility] [place] [id number] [address] [place] [address] Apr, Back pain M54.9 [facility] [address] [id number] [address] [place] [address] Apr, [facility] [address] [facility] [place] [id number] [address] [place] [address] Apr, Polyneuropathy in diseases c lassified elsewhere G63 [facility] [address] [facility] [place] [id number] [address] [place] [address] Mar, Back pain M54.9 [facility] [address] [id number] [address] [place] [address] Mar, [facility] [address] [id number] [address] [place] [phone] Mar, Back pain M54.9 [facility] [address] [id number] [address] [place] [address] Mar, [facility] [address] [id number] [address] [place] [phone] Mar, [facility] [address] [id number] [address] [place] [phone] Mar, Polyneuropathy in diseases c lassified elsewhere G63 [facility] [address] [id number] [address] [place] [address] Feb, Back pain M54.9 [facility] [address] [id number] [address] [place] [address] Jan, Back pain M54.9 [facility] [address] [id number] [address] [place] [phone] Jan, [facility] [address] [id number] [address] [place] [address] Jan, [facility] [address] [id number] [address] [place] [phone] Dec, Back pain M54.9 [facility] [address] [id number] [address] [place] [phone] Dec, [facility] [address] [id number] [address] [place] [phone] Dec, Upper respiratory tract infe ction, unspecified type J06.9 [facility] [address] [id number] [address] [place] [phone] Dec, [facility] [address] [facility] [place] [id number] [address] [place] [address] Dec, Acute suppurative otitis med ia of right ear without spontaneous rupture of tympanic membrane, recurrence not specified H66.001 and Acute nasopharyngitis J00 [facility] [address] [id number] [address] [place] [address] Dec, Back pain M54.9 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 [address] [id number] [address] [place] [address] Nov, Cellulitis of toe of right f oot L03.031 ; Polyneuropathy in diseases classified elsewhere G63 and HTN (hypertension) I10 [facility] [address] [id number] [address] [place] [phone] Nov, [facility] [address] [id number] [address] [place] [address] Nov, [facility] [address] [facility] [place] [id number] [address] [place] [address] Nov, Back pain M54.9 [facility] [address] [id number] [address] [place] [address] Nov, Shortness of breath R06.02 [facility] [address] [facility] [place] [id number] [address] [place] [address] Nov, [facility] [address] [id number] [address] [place] [address] Oct, [facility] [address] [id number] [address] [place] [address] Oct, [facility] [address] [facility] [place] [id number] [address] [place] [address] Oct, [facility] [address] [facility] [place] [id number] [address] [place] [address] Oct, [facility] [address] [facility] [place] [id number] [address] [place] [phone] Oct, [facility] [address] [id number] [address] [place] [address] Oct, Back pain M54.9 [facility] [address] [id number] [address] [place] [address] Oct, Back pain M54.9 [facility] [address] [id number] [address] [place] [phone] Oct, [facility] [address] [id number] [address] [place] [address] September, [facility] [address] [id number] [address] [place] [phone] September, [facility] [address] [id number] [address] [place] [phone] September, 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 [address] [id number] [address] [place] [phone] September, [facility] [address] [facility] [place] [id number] [address] [place] [id number] September, [facility] [address] [facility] [place] [id number] [address] [place] [phone] September, Back pain M54.9 [facility] [address] [id number] [address] [place] [id number] Aug, [facility] [address] [facility] [place] [id number] [address] [place] [phone] Aug, Acute cystitis with hematuri a N30.01 ; Ulcer of right foot, unspecified ulcer stage L97.519 ; HTN (hypertension) I10 ; COPD (chronic obstructive pulmonary disease) J44.9 and DM neuro manif type II E11.49 [facility] [address] [id number] [address] [place] [phone] Aug, Back pain M54.9 [facility] [address] [facility] [place] [id number] [address] [place] [phone] Jul, [facility] [address] [facility] [place] [id number] [address] [place] [phone] Jul, Back pain M54.9 [facility] [address] [facility] [place] [id number] [address] [place] [phone] Jul, [facility] [address] [facility] [place] [id number] [place] [phone] Jul, DM neuro manif type II E11.4 9 and Ulcer of right foot, unspecified ulcer stage L97.519 [facility] [address] [facility] [place] [id number] [address] [place] [phone] Jun, [place] [address] [phone] Jun, 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 [address] [facility] [place] [id number] [address] [place] [phone] May, [facility] [address] [facility] [place] [facility] [place] [id number] [address] [place] [phone] Apr, [facility] [address] [facility] [place] [id number] [address] [place] [phone] Mar, [facility] [address] [facility] [place] [id number] [address] [place] [phone] Mar, [place] [id number] [id number] [address] [place] [phone] Feb, [facility] [address] [id number] [address] [place] [phone] Feb, [facility] [address] [id number] [address] [place] [phone] Jan, [facility] [address] [facility] [place] [id number] [address] [place] [phone] Jan, HTN (hypertension) I10 [facility] [address] [id number] [address] [place] [phone] Jan, [facility] [address] [facility] [place] [id number] [address] [place] [phone] Dec, Back pain M54.9 [facility] [address] [facility] [place] [id number] [address] [place] [address] [id number] Dec, Back pain M54.9 [facility] [address] [facility] [place] [id number] [address] [place] [address] Dec, Encounter for immunization Z 23 and Puncture wound of right foot, initial encounter S91.331A [facility] [address] [facility] [place] [id number] [address] [place] [address] Dec, [facility] [address] [facility] [place] [facility] [place] [id number] [address] [place] [address] Nov, [facility] [address] [facility] [place] [id number] [address] [place] [address] Nov, COPD (chronic obstructive pu lmonary disease) J44.9 [facility] [address] [facility] [place] [id number] [address] [place] [phone] Nov, [facility] [address] [facility] [place] [facility] [place] [id number] [address] [place] [phone] Oct, [facility] [address] [facility] [facility] [place] [id number] [address] [place] [phone] Oct, [facility] [address] [id number] [address] [place] [address] September, Onychomycosis B35.1 and DM n euro manif type II E11.49 [facility] [address] [id number] [address] [place] [address] September, [facility] [address] [facility] [place] [facility] [place] [id number] [address] [place] [address] Aug, [facility] [address] [id number] [address] [place] [address] Jul, Sinusitis, unspecified chron icity, unspecified location J32.[address] [facility] [address] [id number] [address] [place] [address] Jul, Back pain M54.9 [facility] [address] [id number] [address] [place] [address] 14 Jun, [address] [facility] [address] [id number] [address] [place] [address] 06 Jun, 2016 COPD (chronic obstructive pu lmonary disease) J44.9 [facility] [address] [id number] [address] [place] [address] May, [facility] [address] [facility] [place] [facility] [place] [id number] [address] [place] [address] May, [facility] [address] [id number] [address] [place] [address] May, Back pain M54.9 [facility] [address] [id number] [address] [place] [address] May, [facility] [address] [facility] [place] [id number] [address] [place] [address] May, [facility] [address] [facility] [place] [id number] [address] [place] [address] May, Diabetes E11.9 [facility] [address] [id number] [address] [place] [phone] 11 May, 2016 Diabetes E11.9 ; GERD [...] for hepatitis C screening test Z11.59 [facility] [address] [id number] [address] [place] [address] 04 May, 2016 HTN (hypertension) I10 [facility] [address] [id number] [address] [place] [id number] 29 Apr, 2016 [facility] [address] [id number] [address] [place] [address] Apr, [facility] [address] [id number] [address] [place] [phone] Apr, [facility] [address] [id number] [address] [place] [phone] Apr, [facility] [address] [id number] [address] [place] [id number] Apr, [facility] [address] [id number] [address] [place] [address] Mar, [facility] [address] [id number] [address] [place] [phone] Mar, [facility] [address] [id number] [address] [place] [phone] Mar, [facility] [address] [id number] [address] [place] [address] Mar, [facility] [address] [id number] [address] [place] [phone] Mar, Dental examination Z01.20 [facility] [address] [facility] [place] [id number] [address] [place] [phone] Feb, [facility] [address] [facility] [place] [id number] [address] [place] [phone] Feb, [facility] [address] [facility] [place] [id number] [address] [place] [address] Feb, Back pain M54.9 [facility] [address] [facility] [place] [id number] [address] [place] [address] Jan, [facility] [address] [facility] [place] [id number] [address] [place] [id number] Jan, [facility] [address] [place] [id number] [place] [address] Dec, Diabetes E11.9 ; GERD (gastr oesophageal reflux disease) K21.9 ; ED (erectile dysfunction) N52.9 ; HTN (hypertension) I10 ; Insomnia G47.00 ; COPD (chronic obstructive pulmonary disease) J44.9 ; Neuropathy G62.9 and Bipolar depression F31.30 [facility] [address] [place] [id number] [address] [place] [address] Dec, 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 [facility] [address] [facility] [place] [id number] [address] [place] [address] Dec, [facility] [address] [facility] [place] [id number] [address] [place] [phone] Dec, [facility] [address] [facility] [place] [id number] [address] [place] [address] Dec, [facility] [address] [facility] [place] [id number] [address] [place] [phone] Dec, [facility] [address] [facility] [place] [id number] [address] [place] [phone] Nov, [facility] [address] [facility] [place] [id number] [address] [place] [address] Nov, [facility] [address] [id number] [address] [place] [id number] 14 Oct, 2015 [facility] [address] [id number] [address] [place] [phone] 08 Oct, 2015 [facility] [address] [id number] [address] [place] [address] Oct, Back pain M54.9 [facility] [address] [id number] [address] [place] [phone] Oct, [facility] [address] [id number] [address] [place] [phone] Oct, [facility] [address] [id number] [address] [place] [phone] Oct, [facility] [address] [id number] [address] [place] [phone] Oct, HTN (hypertension) I10 [facility] [address] [id number] [address] [place] [address] Oct, Back pain M54.9 [facility] [address] [id number] [address] [place] [address] Oct, Chronic pain syndrome G89.4 [facility] [address] [facility] [place] [id number] [address] [place] [address] September, Back pain M54.9 [facility] [address] [id number] [address] [place] [phone] September, HTN (hypertension) I10 [facility] [address] [id number] [address] [place] [address] Aug, Porokeratosis Q82.8 ; Onycho mycosis B35.1 and Type 2 diabetes mellitus with other diabetic neurological complication E11.49 [facility] [address] [id number] [address] [place] [phone] Aug, GERD (gastroesophageal reflu x disease) K21.9 ; Diabetes E11.9 ; HTN (hypertension) I10 ; Insomnia G47.00 ; Restless legs syndrome G25.81 ; COPD (chronic obstructive pulmonary disease) J44.9 ; Back pain M54.9 and Bipolar [address] [facility] [address] [id number] [address] [place] [address] Aug, [facility] [address] [id number] [address] [place] [address] Aug, [facility] [address] [id number] [address] [place] [phone] Aug, [facility] [address] [id number] [address] [place] [address] Aug, [facility] [address] [id number] [address] [place] [address] Jul, [facility] [address] [facility] [place] [id number] [address] [place] [address] Jul, [facility] [address] [id number] [address] [place] [address] Jul, [facility] [address] [id number] [address] [place] [phone] Jul, [facility] [address] [id number] [address] [place] [address] Jul, [facility] [address] [facility] [place] [id number] [address] [place] [address] Jul, [facility] [address] [id number] [address] [place] [address] 17 Jun, 2015 Decubital ulcer L89.90 ; Nathalia betes E11.9 ; Back pain M54.9 ; HTN (hypertension) I10 and COPD (chronic obstructive pulmonary disease) J44.9 [facility] [address] [id number] [address] [place] [phone] Jun, [facility] [address] [facility] [place] [id number] [address] [place] [address] Jun, [facility] [address] [facility] [place] [id number] [address] [place] [address] Jun, [place] [address] [place] [id number] [place] [address] Jun, [place] [address] [place] [id number] [address] [place] [address] Jun, Diabetes E11.9 ; Insomnia G4 7.00 ; Decubital ulcer L89.90 ; GERD (gastroesophageal reflux disease) K21.9 ; Back pain M54.9 ; Superficial fungus infection of skin B36.9 and HTN (hypertension) I10 [address] [place] [id number] [place] [id number] Jun, Dental examination Z01.20 [place] [id number] [address] [place] [address] May, [place] [address] [place] [id number] [address] [place] [address] May, [place] [address] [place] [id number] [address] [place] [address] May, [place] [address] [address] May, Diabetes E11.9 ; HTN (hypert ension) I10 and Decubital ulcer L89.90 [place] [id number] [place] [address] May, HTN (hypertension) I10 ; Dec ubital ulcer L89.90 and Diabetes E11.9 [place] [address] [facility] [place] [id number] [address] [place] [address] Apr, Diabetes E11.9 ; GERD (gastr oesophageal reflux disease) K21.9 ; Back pain M54.9 ; HTN (hypertension) I10 ; Restless legs syndrome G25.81 and Decubital ulcer L89.90 [place] [address] [place] [id number] [address] [place] [address] Apr, [place] [address] [address] Apr, Diabetes E11.9 ; HTN (hypert ension) I10 ; Restless legs syndrome G25.81 ; GERD (gastroesophageal reflux disease) K21.9 and COPD (chronic obstructive pulmonary disease) J44.9 [place] [address] [address] Mar, [place] [address] [address] Mar, [address] [address] Mar, Diabetes E11.9 ; Abscess L02 .91 and Restless legs syndrome G25.[address] [address] Mar, [place] [address] [address] Feb, GERD (gastroesophageal reflu x disease) K21.9 ; Back pain M54.9 ; ED (erectile dysfunction) N52.9 ; Diabetes E11.9 ; HTN (hypertension) I10 and Insomnia G47.00 [place] [address] [address] Feb, [place] [address] [address] Feb, [place] [address] [address] Jan, [address] [address] Jan, Diabetes 250.00 ; Nondepende nt cannabis abuse, continuous 305.21 ; Cough 786.2 ; Schizoaffective disorder, unspecified 295.70 ; Sciatica 724.3 ; Other, mixed, or unspecified nondependent drug abuse, unspecified 305.90 ; Chronic pain 338.29 ; GERD (gastroesophageal reflux disease) 530.81 and HTN (hypertension) 401.9 [facility] [address] [address] Jan, [facility] [address] [address] Jan, [facility] [address] [address] Jan, Chronic pain associated with significant psychosocial dysfunction 338.4 ; Diabetes mellitus without mention of complication, type I [juvenile type], uncontrolled 250.03 ; Benign essential hypertension 401.1 ; Schizoaffective disorder, unspecified 295.70 ; Wheezing 786.07 ; Ear ache 388.70 ; Cough 786.2 ; Sciatica 724.3 and Foot pain, bilateral 729.5 [facility] [address] [address] Dec, [facility] [address] [address] Dec, [facility] [address] [address] Dec, [facility] [address] [address] Dec, [facility] [address] [address] Dec, [facility] [address] [address] Nov, Elevated liver enzymes 790.5 [facility] [address] [address] Nov, [facility] [address] [address] Nov, [facility] [address] [address] Nov, [facility] [address] [id number] [address] [place] [address] Nov, Benign essential hypertensio n 401.1 ; Diabetes mellitus without mention of complication, type I [juvenile type], uncontrolled 250.03 and Nondependent cannabis abuse, continuous 305.21 [facility] [address] [id number] [address] [place] [address] Oct, Cellulitis 682.9 and Benign essential hypertension 401.1 [facility] [address] [id number] [address] [place] [address] Oct, [facility] [address] [id number] [address] [place] [address] September, [facility] [address] [id number] [address] [place] [address] September, [facility] [address] [id number] [address] [place] [address] Aug, [facility] [address] [id number] [address] [place] [phone] Aug, [facility] [address] [id number] [address] [place] [address] Aug, [facility] [address] [id number] [address] [place] [address] Aug, [facility] [address] [id number] [address] [place] [address] Jul, [facility] [address] [id number] [address] [place] [address] Jul, [facility] [address] [id number] [address] [place] [id number] Jul, [facility] [address] [id number] [address] [place] [id number] Jul, [facility] [address] [id number] [address] [place] [address] Jul, [facility] [address] [id number] [address] [place] [address], [place] [address] Jul, [facility] [address] [id number] [address] [place] [address], [place] [address] Jun, [facility] [address] [id number] [address] [place] [address], [place] [address] Jun, [facility] [address] [id number] [address] [place] [address], [place] [address] Jun, [facility] [address] [id number] [address] [place] [address], [place] [address] Jun, [facility] [address] [id number] [address] [place] [address], [place] [address] Jun, [facility] [address] [id number] [address] [place] [address], [place] [address] May, [facility] [address] [id number] [address] [place] [address], [place] [address] May, [facility] [address] [id number] [address] [place] [address], [place] [address] May, [facility] [address] [id number] [address] [place] [address], [place] [address] May, [facility] [address] [id number] [address] [place] [address], [place] [address] May, [facility] [address] [id number] [address] [place] [address], [place] [address] May, [facility] [address] [id number] [address] [place] [address], [place] [address] May, [facility] [address] [id number] [address] [place] [address], [place] [address] May, [facility] [address] [id number] [address] [place] [address], [place] [address] Apr, [facility] [address] [id number] [address] [place] [address], [place] [address] Apr, [facility] [address] [id number] [address] [place] [address], [place] [address] Apr, [facility] [address] [id number] [address] [place] [address], [place] [address] Apr, [facility] [address] [id number] [address] [place] [address], [place] [address] Mar, [facility] [address] [id number] [address] [place] [address], [place] [address] Mar, [facility] [address] [id number] [address] [place] [address], [place] [address] Mar, [facility] [address] [id number] [address] [place] [address], [place] [address] Mar, [facility] [address] [id number] [address] [place] [address], [place] [address] Feb, [facility] [address] [id number] [address] [place] [address], [place] [address] Feb, [facility] [address] [id number] [address] [place] [address], [place] [address] Feb, [facility] [address] [id number] [address] [place] [address], [place] [address] Feb, [facility] [address] [id number] [address] [place] [address], [place] [address] Feb, [facility] [address] [id number] [address] [place] [address], [place] [address] Feb, [facility] [address] [id number] [address] [place] [address], [place] [address] Jan, [facility] [address] [id number] [address] [place] [address], [place] [address] Jan, [facility] [address] [id number] [address] [place] [address] Jan, [facility] [address] [id number] [facility] [place] [address] Jan, [facility] [address] [id number] [facility] [place] [address] Dec, [facility] [address] [id number] [facility] [place] [address] Dec, [facility] [address] [id number] [address] [place] [address], [place] [address] Dec, [facility] [address] [id number] [address] [place] [address], [place] [address] Dec, [facility] [address] [id number] [address] [place] [address], [place] [address] Dec, [facility] [address] [id number] [address] [place] [address], [place] [address] Dec, [facility] [address] [id number] [address] [place] [address], [place] [address] Oct, [facility] [address] [id number] [address] [place] [address], [place] [address] Oct, [facility] [address] [id number] [address] [place] [address], [place] [address] September, [facility] [address] [id number] [address] [place] [address], [place] [address] September, [facility] [address] [id number] [address] [place] [address], [place] [address] September, [facility] [address] [id number] [address] [place] [address], [place] [address] September, [facility] [address] [id number] [address] [place] [address], [place] [address] September, [facility] [address] [id number] [address] [place] [address], [place] [address] September, [facility] [address] [id number] [address] [place] [address], [place] [address] Aug, [facility] [address] [id number] [address] [place] [address], [place] [address] Aug, [facility] [address] [id number] [address] [place] [address], [place] [address] Aug, [facility] [address] [id number] [address] [place] [address], [place] [address] Aug, [facility] [address] [id number] [address] [place] [address], [place] [address] Jul, [facility] [address] [id number] [address] [place] [address], [place] [address] Jul, [facility] [address] [id number] [address] [place] [address], [place] [address] Jun, [facility] [address] [id number] [address] [place] [address], [place] [address] Jun, [facility] [address] [id number] [address] [place] [address], [place] [address] May, [facility] [address] [id number] [address] [place] [address], [place] [id number] May, [facility] [address] [id number] [address] [place] [address], [place] [id number] Jan, [facility] [address] [id number] [address] [place] [address], [place] [id number] Dec, [facility] [address] [id number] [address] [place] [address], [place] [address] Jun, [facility] [address] [id number] [address] [place] [address], [place] [id number] May, [facility] [address] [id number] [address] [place] [address], [place] [address] Nov, [facility] [address] [id number] [address] [place] [address], [place] [address] September, [facility] [address] [id number] [address] [place] [phone] Aug, [facility] [address] [id number] [address] [place] [id number] Aug, [facility] [address] [id number] [address] [place] [id number] Aug, [facility] [address] [id number] [address] [place] [id number] Aug, [facility] [address] [id number] [address] [place] [id number] Nov, [facility] [address] [id number] [address] [place] [id number] Oct, [facility] [address] [id number] [address] [place] [phone] Jul, [facility] [address] [id number] [address] [place] [phone] Feb, [facility] [address] [id number] [address] [place] [phone] Feb, [facility] [address] [id number] [address] [place] [phone] Apr, [facility] [address] [id number] [address] [place] [id number] Apr, [facility] [address] [id number] [address] [place] [phone] Feb, [facility] [address] [id number] [address] [place] [phone] Feb, [facility] [address] [id number] [address] [place] [id number] Jul, IMMUNIZATIONS No Known Immunizations SOCIAL HISTORY [...] scopes - twail checking for stones 02/09 Surgical History wound care on right toes - dr erickson 04/11 019 Surgical History Rt toe amputation 06/2019 Hospitalization History Psych hospitalizations(numerous) Hospitalization History for surgeries Hospitalization History UTI 08/27/17 Hospitalization History foot wound 09/2017 Hospitalization History [facility] OD on drugs 09/15/2018 Hospitalization History [facility] 03/28/19 Hospitalization History [facility]- Toe amputation 01/2019
--- OUTSIDE RECORDS SUMMARY | 2019-09-09 08:31 | XMS REPORT ---
Author Author Sahil JAMESON NA [facility] Organization [facility] [place] Address [address] [place] [address] Care Team Providers Care Cake Puncher Name Role Phone MICHAEL CEDILLOMELIZA Unavailable PROBLEMS Type Condition ICD9-CM Code TYX97-XL Code Onset Dates Condition S tatus SNOMED Code Problem Restless legs syndrome G25.81 Active 366246044 Problem GERD (gastroesophageal reflux disease) K21.9 Active 905716868 Problem Sinusitis, unspecified chronicity, unspecified location J32.9 Active 16024332 Problem COPD (chronic obstructive pulmonary disease) J44.9 Active 80574402 Problem Ulcer of right foot, unspecified ulcer stage L97.5 19 Active 54320774 Problem DM neuro manif type II E11.49 Active 28997538 Problem Constipation, unspecified constipation type K59.00 Active 66060971 Problem Schizoaffective disorder, depressive type F25.1 Active 43759950 Problem PAD (peripheral artery disease) I73.9 Active 261237725 Problem Chronic hepatitis C without hepatic coma B18.2 Active 706439812 Problem Polyneuropathy G62.9 Active 12479 000 Problem Alcohol use disorder, severe, dependence F10.20 Active 89251141 Problem Methamphetamine use disorder, severe, 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 Active 923739279 Problem Morbid (severe) obesity due to excess calories E66 .01 Active 502294991 Problem Neuropathy G62.9 Active 528100453 Problem ED (erectile dysfunction) N52.9 Acti ve 328512162 Problem 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 Active 224026866 Problem Substance abuse F19.10 Active 6621 4007 Problem Personality disorder F60.9 Active 52138314 Problem HTN (hypertension) I10 Active 3 8426390 Problem Cannabis use disorder, severe, dependence F12.20 Active 95667117 Problem Ulcer of toe of right foot, unspecified ulcer stage L97.519 Active 723146606 Problem Amputated toe of right foot S98.131A Ac tive 961403954 Problem Hammer toe, unspecified laterality M20.40 Active [id number] ALLERGIES No Information ENCOUNTERS Encounter Location Date Diagnosis [facility] [place] [address] [id number] [address] [place] [id number] 17 Aug, 2019 [facility] [place] [address] [facility] [id number] [address] [place] [phone] 13 Aug, 2019 [facility] [place] [address] [id number] [address] [place] [phone] 13 Aug, 2019 [facility] [place] [address] [facility] [id number] [address] [place] [phone] Aug, [facility] [place] [address] [facility] [id number] [address] [place] [phone] 09 Aug, 2019 Chronic hepatitis C without hepatic coma B18.2 [facility] [place] [address] [facility] [id number] [address] [place] [phone] 06 Aug, 2019 [facility] [place] [address] [facility] [id number] [address] [place] [phone] 03 Aug, 2019 [facility] [place] [address] [facility] [id number] [address] [place] [phone] Aug, Polyneuropathy G62.9 [facility] [place] [address] [facility] [id number] [address] [place] [phone] 24 Jul, 2019 [facility] [place] [address] [facility] [id number] [address] [place] [phone] 23 Jul, 2019 [facility] [place] [address] [facility] [id number] [address] [place] [phone] 18 Jul, 2019 [facility] [place] [address] [facility] [id number] [address] [place] [phone] 10 Jul, 2019 [facility] [place] [address] [facility] [id number] [address] [place] [phone] 10 Jul, 2019 [facility] [place] [address] [facility] [id number] [address] [place] [phone] 09 Jul, 2019 [facility] [address] [id number] [address] [place] [phone] 09 Jul, 2019 [facility] [address] [id number] [address] [place] [phone] 06 Jul, 2019 [facility] [address] [id number] [address] [place] [phone] Jul, [facility] [address] [id number] [address] [place] [id number] 04 Jul, 2019 Polyneuropathy G62.9 [facility] [address] [id number] [address] [place] [id number] Jun, 2019 [facility] [address] [id number] [address] [place] [phone] Jun, 2019 [facility] [address] [id number] [address] [place] [phone] Jun, 2019 [facility] [address] [id number] [address] [place] [phone] Jun, 2019 [facility] [address] [id number] [address] [place] [id number] 05 Jun, 2019 [facility] [address] [facility] [id number] [address] [place] [phone] 04 Jun, 2019 Polyneuropathy G62.9 [facility] [place] [address] [id number] [address] [place] [phone] May, [facility] [address] [id number] [address] [place] [address] May, Foot callus L84 [facility] [address] [id number] [address] [place] [phone] May, [facility] [address] [facility] [id number] [address] [place] [phone] May, [facility] [address] [id number] [address] [place] [phone] 10 May, 2019 [facility] [place] [address] [id number] [address] [place] [id number] May, Polyneuropathy G62.9 ; HTN ( hypertension) I10 ; Schizoaffective disorder, depressive type F25.1 ; PAD (peripheral artery disease) I73.9 ; COPD (chronic obstructive pulmonary disease) J44.9 ; Amputated toe of right foot S98.131A ; Methamphetamine use disorder, severe, 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 and Type 2 diabetes mellitus with other diabetic neurological complication E11.49 [facility] [place] [address] [id number] [address] [place] [phone] May, [facility] [place] [address] [facility] [id number] [address] [place] [phone] May, [facility] [place] [address] [facility] [id number] [address] [place] [phone] May, [facility] [place] [address] [facility] [id number] [address] [place] [phone] May, [facility] [place] [address] [facility] [id number] [address] [place] [phone] May, [facility] [place] [address] [facility] [id number] [address] [place] [phone] May, Chronic hepatitis C without hepatic coma B18.2 and HTN (hypertension) I10 [facility] [place] [address] [facility] [id number] [address] [place] [phone] May, Neuropathy G62.9 [facility] [place] [address] [facility] [id number] [address] [place] [phone] Apr, [address] [id number] [address] Apr, [facility] [place] [address] [facility] [id number] [address] [place] [phone] Apr, [facility] [place] [address] [facility] [id number] [address] [place] [phone] Apr, [facility] [place] [address] [id number] [address] [place] [phone] Apr, [facility] [place] [address] [id number] [address] [place] [phone] Apr, [facility] [place] [address] [facility] [id number] [address] [place] [phone] Apr, [facility] [place] [address] [id number] [address] [place] [id number] Apr, Ulcer of right foot, unspeci fied ulcer stage L97.519 ; Type 2 diabetes mellitus with other diabetic neurological complication E11.49 ; Onychomycosis B35.1 and Hammer toe, unspecified laterality M20.40 [facility] [place] [address] [facility] [id number] [address] [place] [phone] Apr, [facility] [place] [address] [facility] [id number] [address] [place] [phone] Apr, HTN (hypertension) I10 and U lcer of toe of right foot, unspecified ulcer stage L97.519 [facility] [place] [address] [facility] [id number] [address] [place] [phone] Apr, [facility] [place] [address] [facility] [id number] [address] [place] [id number] Apr, Schizoaffective disorder, de pressive type F25.1 ; 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 and Stimulant use disorder F15.90 [facility] [place] [address] [facility] [id number] [address] [place] [phone] Apr, [facility] [place] [address] [facility] [id number] [address] [place] [phone] Apr, [facility] [place] [address] [facility] [id number] [address] [place] [phone] Apr, [facility] [place] [address] [facility] [id number] [address] [place] [phone] Mar, Pre-ulcerative calluses L84 [facility] [place] [address] [facility] [id number] [address] [place] [id number] Mar, HTN (hypertension) I10 ; DM neuro manif type II E11.49 ; Morbid (severe) obesity due to excess calories E66.01 and Polyneuropathy G62.9 [facility] [place] [address] [facility] [id number] [address] [place] [phone] Mar, [facility] [place] [address] [facility] [id number] [address] [place] [phone] Mar, [facility] [place] [address] [facility] [id number] [address] [place] [id number] Mar, Onychomycosis B35.1 ; Callus of foot L84 and Hammer toe, unspecified laterality M20.40 [facility] [place] [address] [facility] [id number] [address] [place] [phone] Mar, Neuropathy G62.9 [facility] [place] [address] [facility] [id number] [address] [place] [phone] Mar, [facility] [place] [address] [facility] [id number] [address] [place] [phone] Mar, [facility] [place] [address] [facility] [id number] [address] [place] [phone] Mar, [facility] [address] [facility] [id number] [address] [place] [phone] Mar, Constipation, unspecified co nstipation type K59.00 [facility] [place] [address] [id number] [address] [place] [phone] Mar, [facility] [place] [address] [facility] [id number] [address] [place] [phone] Mar, [facility] [place] [address] [facility] [id number] [address] [place] [phone] Mar, Chronic hepatitis C without hepatic coma B18.2 ; High risk medication use Z79.899 and Encounter for immunization Z23 [facility] [place] [address] [facility] [id number] [address] [place] [phone] Mar, [facility] [place] [address] [facility] [id number] [address] [place] [phone] Mar, Neuropathy G62.9 [facility] [address] [facility] [id number] [address] [place] [phone] Mar, High risk sexual behavior, u nspecified type Z72.51 [facility] [place] [address] [facility] [id number] [address] [place] [phone] Feb, Callus of foot L84 [facility] [place] [address] [facility] [id number] [address] [place] [phone] Feb, Callus of foot L84 [facility] [place] [address] [facility] [id number] [address] [place] [phone] Feb, [facility] [place] [address] [facility] [id number] [address] [place] [phone] Feb, [facility] [address] [facility] [id number] [place] [phone] Feb, Methamphetamine use disorder, severe, de pendence F15.20 ; Alcohol use disorder, severe, dependence F10.20 and Cannabis use disorder, severe, dependence F12.20 [facility] [place] [address] [facility] [id number] [address] [place] [phone] Feb, Chronic hepatitis C without hepatic coma B18.2 [facility] [address] [facility] [id number] [address] Feb, Methamphetamine use disorder, severe, de pendence F15.20 ; Alcohol use disorder, severe, dependence F10.20 and Cannabis use disorder, severe, dependence F12.20 [facility] [place] [address] [facility] [id number] [address] [place] [address] Feb, [facility] [place] [address] [facility] [id number] [address] [place] [phone] Feb, Chronic hepatitis C without hepatic coma B18.2 [facility] [place] [address] [facility] [id number] [place] [phone] Feb, Methamphetamine use disorder, severe, de pendence F15.20 ; Alcohol use disorder, severe, dependence F10.20 and Cannabis use disorder, severe, dependence F12.20 [facility] [place] [address] [facility] [id number] [address] [place] [phone] Feb, [facility] [place] [address] [facility] [id number] [address] [place] [phone] Feb, [facility] [place] [address] [facility] [id number] [address] [place] [phone] Feb, [facility] [place] [address] [facility] [id number] [address] [place] [phone] Feb, [facility] [place] [address] [facility] [id number] [address] [place] [phone] Feb, Neuropathy G62.9 [facility] [place] [address] [place] [id number] [address] [place] [phone] Feb, Schizoaffective disorder, de pressive type F25.1 ; 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 and Stimulant use disorder F15.90 [facility] [place] [address] [facility] [id number] [address] [place] [phone] Feb, Onychomycosis B35.1 and Neur opathy G62.9 [facility] [place] [address] [facility] [id number] [address] [place] [phone] Feb, [facility] [place] [address] [facility] [id number] [address] [place] [phone] Feb, [facility] [place] [address] [facility] [id number] [address] [place] [phone] Feb, [facility] [place] [address] [facility] [id number] [place] [phone] Feb, Methamphetamine use disorder, severe, de pendence F15.20 ; Alcohol use disorder, severe, dependence F10.20 and Cannabis use disorder, severe, dependence F12.20 [facility] [place], [facility] [address] [facility] [id number] [address] [place] [phone] Feb, Chronic hepatitis C without hepatic coma B18.2 and Encounter for immunization Z23 [facility] [place], [facility] [address] [facility] [id number] [address] [place] [phone] 30 Jan, 2019 [facility] [place], [facility] [address] [facility] [id number] [address] [place] [phone] Jan, [facility] [place], [facility] [address] [facility] [id number] [address] [place] [phone] Jan, [facility] [id number] [place] [phone] Jan, Methamphetamine use disorder, severe, de pendence F15.20 ; Alcohol use disorder, severe, dependence F10.20 and Cannabis use disorder, severe, dependence F12.20 [facility] [place], [facility] [address] [facility] [id number] [address] [place] [phone] Jan, [facility] [place], [facility] [address] [facility] [id number] [address] [place] [phone] Jan, [facility] [place], [facility] [address] [facility] [id number] [address] [place] [phone] Jan, History of amputation Z89.9 [facility] [address] [facility] [id number] [address] [place] [phone] Jan, [facility] [place], [facility] [address] [facility] [id number] [address] [place] [phone] Jan, [facility] [facility] [place] [address] [facility] [id number] [address] [place] [phone] Jan, [facility] [place] [address] [facility] [id number] [address] [place] [phone] Jan, [facility] [place] [address] [facility] [id number] [address] [place] [phone] Jan, [facility] [place] [address] [facility] [id number] [address] [place] [phone] 18 Jan, 2019 [facility] [place] [address] [facility] [id number] [address] [place] [address] 18 Jan, 2019 [facility] [place] [address] [facility] [id number] [address] [place] [phone] 18 Jan, 2019 [facility] [place] [address] [facility] [id number] [place] [phone] 18 Jan, 2019 Methamphetamine use disorder, severe, de pendence F15.20 ; Alcohol use disorder, severe, dependence F10.20 and Cannabis use disorder, severe, dependence F12.20 [facility] [place] [address] [facility] [id number] [address] [place] [phone] 18 Jan, 2019 [facility] [place] [address] [facility] [id number] [address] [place] [phone] 16 Jan, 2019 [facility] [place] [address] [facility] [id number] [address] [place] [phone] 13 Jan, 2019 [facility] [place] [address] [facility] [id number] [place] [phone] Jan, Methamphetamine use disorder, severe, de pendence F15.20 ; Alcohol use disorder, severe, dependence F10.20 and Cannabis use disorder, severe, dependence F12.20 [facility] [place] [address] [facility] [id number] [place] [phone] 06 Jan, 2019 Methamphetamine use disorder, severe, de pendence F15.20 ; Cannabis use disorder, severe, dependence F12.20 and Alcohol use disorder, severe, dependence F10.20 [facility] [place] [address] [facility] [id number] [address] [place] [phone] 06 Jan, 2019 Chronic hepatitis C without hepatic coma B18.2 [facility] [place] [address] [facility] [id number] [address] [place] [phone] 05 Jan, 2019 Neuropathy G62.9 [facility] [place] [address] [facility] [id number] [address] [place] [phone] Jan, [facility] [place] [address] [facility] [id number] [address] [place] [phone] Jan, [facility] [place] [address] [place] [id number] [address] [place] [phone] Jan, Chronic hepatitis C without hepatic coma B18.2 [facility] [place] [address] [place] [id number] [address] [place] [address] Dec, Right foot pain M79.671 [place] [address] [address] Dec, Schizoaffective disorder, de pressive type F25.1 ; Other shelter (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.899 and Stimulant use disorder F15.90 [place] [address] [address] Dec, [facility] [place] [address] [address] Dec, Methamphetamine use disorder, severe, de pendence F15.20 ; Alcohol use disorder, severe, dependence F10.20 and Cannabis use disorder, severe, dependence F12.20 [place] [address] [address] Dec, [place] [address] [address] Dec, [facility] [address] [place] [id number] [address] [place] [phone] Dec, Ulcer of toe of right foot, unspecified ulcer stage L97.519 [facility] [place] [address] [place] [id number] [address] [place] [phone] Dec, [facility] [place] [address] [address] Dec, Methamphetamine use disorder, severe, de pendence F15.20 ; Cannabis use disorder, severe, dependence F12.20 and Alcohol use disorder, severe, dependence F10.20 [place] [address] [place] [id number] [address] [place] [phone] Dec, [facility] [address] [place] [id number] [address] [place] [address] Dec, Allergic contact dermatitis, unspecified trigger L23.9 and Ankle swelling, unspecified laterality M25.473 [facility] [place] [address] [place] [id number] [address] [place] [phone] Dec, [facility] [place] [address] [place] [id number] [address] [place] [phone] Dec, [facility] [place] [address] [address] Dec, Methamphetamine use disorder, severe, de pendence F15.20 ; Alcohol use disorder, severe, dependence F10.20 and Cannabis use disorder, severe, dependence F12.20 [facility] [place] [address] [address] Dec, [facility] [place] [address] [address] Dec, [place] [address] [address] Dec, Diarrhea of presumed infecti ous origin R19.7 ; Chronic hepatitis C without hepatic coma B18.2 and Nail fungus B35.1 [facility] [place] [address] [place] [id number] [address] [place] [address] Dec, Neuropathy G62.9 [place] [address] [place] [id number] [address] [place] [address] Dec, [place] [address] [place] [id number] [address] [place] [address] Nov, Schizoaffective disorder, de pressive type F25.1 ; 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 and Stimulant use disorder F15.90 [facility] [place] [address] [place] [id number] [address] [place] [phone] Nov, [facility] [place] [address] [place] [address] Nov, Substance abuse F19.10 [facility] [place] [address] [facility] [id number] [address] [place] [phone] Nov, [facility] [place] [address] [facility] [id number] [address] [place] [address] Nov, Chronic hepatitis C without hepatic coma B18.2 [facility] [place] [address] [facility] [id number] [address] [place] [phone] Nov, [facility] [place] [address] [facility] [id number] [address] [place] [phone] Nov, Fatigue, unspecified type R5 3.83 [facility] [place] [address] [facility] [id number] [address] [place] [address] Nov, Schizoaffective disorder, de pressive type F25.1 ; Other shelter (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.899 and Stimulant use disorder F15.90 [facility] [place] [address] [facility] [id number] [address] [place] [phone] Nov, [facility] [place] [address] [facility] [id number] [address] [place] [address] Nov, [facility] [place] [address] [facility] [id number] [address] [place] [address] Nov, [facility] [place] [address] [facility] [id number] [address] [place] [address] Oct, Neuropathy G62.9 [facility] [place] [address] [facility] [id number] [address] [place] [address] Oct, Prediabetes R73.03 ; 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.899 and Chronic hepatitis C without hepatic coma B18.2 [facility] [place] [address] [facility] [id number] [address] [place] [address] Oct, Schizoaffective disorder, de pressive type F25.1 and 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 [facility] [place] [address] [id number] [address] [place] [phone] 20 Oct, 2018 [facility] [address] [id number] [address] [place] [phone] 14 Oct, 2018 Sore throat J02.9 and Acute non-recurrent frontal sinusitis J01.10 [facility] [place] [address] [id number] [address] [place] [phone] 11 Oct, 2018 [facility] [address] [id number] [address] [place] [phone] 07 Oct, 2018 Acute URI J06.9 [facility] [place] [address] [id number] [address] [place] [phone] Oct, [facility] [place] [address] [facility] [id number] [address] [place] [phone] Oct, Schizoaffective disorder, de pressive type F25.1 [facility] [place] [address] [facility] [id number] [address] [place] [phone] Oct, [facility] [place] [address] [facility] [id number] [address] [place] [phone] Oct, Substance abuse F19.10 [facility] [address] [facility] [id number] [address] [place] [address] Oct, Bronchitis J40 [address] [id number] [address] September, Back pain M54.9 [facility] [place] [address] [id number] [address] [place] [phone] September, Schizoaffective disorder, de pressive type F25.1 [facility] [place] [address] [facility] [id number] [address] [place] [address] September, [facility] [address] [facility] [address] [id number] [address] September, Substance abuse F19.10 [facility] [place] [address] [facility] [id number] [address] [place] [phone] September, [facility] [place] [address] [id number] [address] [place] [phone] September, Schizoaffective disorder, de pressive type F25.1 [facility] [place] [address] [id number] [address] [place] [address] September, Substance abuse F19.10 [facility] [place] [address] [facility] [id number] [address] [place] [phone] September, [facility] [place] [address] [facility] [id number] [address] [place] [address] September, Substance abuse F19.10 [facility] [place] [address] [facility] [id number] [address] [place] [phone] September, Encounter for Medicare ann l wellness exam Z00.00 ; Ulcer of right foot, unspecified ulcer stage L97.519 ; Type 2 diabetes mellitus with other diabetic neurological complication E11.49 ; COPD (chronic obstructive pulmonary disease) J44.9 ; PAD (peripheral artery disease) I73.9 ; Schizoaffective disorder, depressive type F25.1 and Routine adult health maintenance Z00.00 [facility] [place] [address] [facility] [id number] [address] [place] [phone] September, Schizoaffective disorder, de pressive type F25.1 [facility] [place] [address] [facility] [id number] [address] [place] [phone] September, [facility] [place] [address] [facility] [id number] [address] [place] [phone] September, [facility] [place] [address] [facility] [id number] [address] [place] [address] September, Schizoaffective disorder, de pressive type F25.1 [facility] [place] [address] [facility] [id number] [address] [place] [address] Aug, [facility] [address] [facility] [id number] [address] [place] [phone] Aug, Rib pain on left side R07.81 and Closed fracture of multiple ribs of left side with routine healing, subsequent encounter S22.42XD [facility] [place] [address] [facility] [id number] [address] [place] [phone] Aug, [facility] [place] [address] [id number] [address] [place] [address] Aug, [facility] [place] [address] [facility] [id number] [address] [place] [id number] Jul, [facility] [place] [address] [id number] [address] [place] [phone] Jul, [facility] [place] [address] [facility] [id number] [address] [place] [phone] Jul, [facility] [place] [address] [facility] [id number] [address] [place] [phone] Jul, Back pain M54.9 [facility] [place] [address] [facility] [id number] [address] [place] [phone] Jul, Polyneuropathy in diseases c lassified elsewhere G63 [facility] [address] [facility] [id number] [address] [place] [address] Jul, Constipation, unspecified co nstipation type K59.00 and Burn T30.0 [facility] [place] [address] [facility] [id number] [address] [place] [address] Jul, [facility] [place] [address] [facility] [id number] [address] [place] [address] Jun, 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 [facility] [place] [address] [facility] [id number] [address] [place] [phone] Jun, Back pain M54.9 [facility] [place] [address] [facility] [id number] [address] [place] [phone] Jun, 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 [facility] [place] [address] [id number] [address] [place] [id number] Jun, [facility] [place] [address] [id number] [address] [place] [id number] Jun, [facility] [place] [address] [id number] [address] [place] [id number] Jun, [facility] [place] [address] [id number] [address] [place] [id number] May, [facility] [place] [address] [id number] [address] [place] [id number] May, Back pain M54.9 [facility] [place] [address] [id number] [address] [place] [phone] May, [facility] [place] [address] [facility] [id number] [address] [place] [address] May, 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 ; Chronic hepatitis C without hepatic coma B18.2 and HTN (hypertension) I10 [facility] [place] [address] [id number] [address] [place] [phone] Apr, Back pain M54.9 [facility] [place] [address] [id number] [address] [place] [phone] Apr, [facility] [place] [address] [id number] [address] [place] [id number] Apr, Polyneuropathy in diseases c lassified elsewhere G63 [facility] [place] [address] [id number] [address] [place] [phone] Mar, Back pain M54.9 [facility] [place] [address] [id number] [address] [place] [id number] Mar, [facility] [place] [address] [facility] [id number] [address] [place] [phone] Mar, Back pain M54.9 [facility] [place], [facility] [address] [id number] [address] [place] [id number] Mar, [facility] [place], [facility] [address] [id number] [address] [place] [id number] Mar, [facility] [place] [address] [id number] [address] [place] [id number] Mar, Polyneuropathy in diseases c lassified elsewhere G63 [facility] [place] [address] [id number] [address] [place] [id number] Feb, Back pain M54.9 [facility] [place] [address] [id number] [address] [place] [id number] Jan, Back pain M54.9 [facility] [place] [address] [id number] [address] [place] [id number] Jan, [facility] [place] [address] [id number] [address] [place] [id number] Jan, [facility] [place] [address] [id number] [address] [place] [id number] Dec, Back pain M54.9 [facility] [place] [address] [id number] [address] [place] [id number] Dec, [facility] [place], [facility] [address] [id number] [address] [place] [id number] Dec, Upper respiratory tract infe ction, unspecified type J06.9 [facility] [place], [facility] [address] [id number] [address] [place] [id number] Dec, [facility] [address] [id number] [address] [place] [id number] Dec, Acute suppurative otitis med ia of right ear without spontaneous rupture of tympanic membrane, recurrence not specified H66.001 and Acute nasopharyngitis J00 [facility] [place] [address] [id number] [address] [place] [id number] Dec, Back pain M54.9 [facility] [place] [address] [id number] [address] [place] [id number] Dec, Foot infection L08.9 and 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 [facility], [place] [address] [id number] [address] [place] [address] Nov, Cellulitis of toe of right f oot L03.031 ; Polyneuropathy in diseases classified elsewhere G63 and HTN (hypertension) I10 [facility] [place] [address] [id number] [address] [place] [phone] Nov, [facility] [place] [address] [id number] [address] [place] [phone] Nov, [facility] [place] [address] [facility] [id number] [address] [place] [id number] Nov, Back pain M54.9 [facility] [place] [address] [facility] [id number] [address] [place] [phone] Nov, Shortness of breath R06.02 [facility] [place] [address] [id number] [address] [place] [phone] Nov, [facility] [place] [address] [facility] [id number] [address] [place] [phone] Oct, [facility] [place] [address] [id number] [address] [place] [id number] Oct, [facility] [place] [address] [facility] [id number] [address] [place] [phone] Oct, [facility] [place] [address] [id number] [address] [place] [id number] Oct, [facility] [place] [address] [facility] [id number] [address] [place] [phone] Oct, [facility] [place] [address] [facility] [id number] [address] [place] [phone] Oct, Back pain M54.9 [facility] [place] [address] [facility] [id number] [address] [place] [id number] Oct, Back pain M54.9 [facility] [place] [address] [id number] [address] [place] [phone] Oct, [facility] [place] [address] [id number] [address] [place] [id number] September, [facility] [place] [address] [id number] [address] [place] [phone] September, [facility] [place] [address] [id number] [address] [place] [id number] September, [facility] [place] [address] [id number] [address] [place] [phone] September, 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 and Hypotension, unspecified hypotension type I95.9 [facility] [place] [address] [id number] [address] [place] [phone] September, [facility] [place] [address] [id number] [address] [place] [phone] September, [facility] [place] [address] [id number] [address] [place] [id number] September, Back pain M54.9 [facility] [place] [address] [facility] [id number] [address] [place] [phone] Aug, [facility] [place] [address] [id number] [address] [place] [phone] Aug, Acute cystitis with hematuri a N30.01 ; Ulcer of right foot, unspecified ulcer stage L97.519 ; HTN (hypertension) I10 ; COPD (chronic obstructive pulmonary disease) J44.9 and DM neuro manif type II E11.49 [facility] [place] [address] [id number] [address] [place] [phone] Aug, Back pain M54.9 [facility] [place] [address] [facility] [id number] [address] [place] [phone] Jul, [facility] [place] [address] [id number] 14 Jul, 2017 Back pain M54.9 [facility] [place] [address] [facility] [id number] [place] [phone] Jul, [facility] [place] [address] [address] 09 Jul, 2017 DM neuro manif type II E11.4 9 and Ulcer of right foot, unspecified ulcer stage L97.519 [facility] [place] [address] [id number] 19 Jun, 2017 [facility] [place] [address] [address] Jun, [facility] [place] [address] [id number] May, 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 ; GERD (gastroesophageal reflux disease) K21.9 and PAD (peripheral artery disease) I73.9 [facility] [place] [address] [address] May, Decubital ulcer L89.90 ; Nathalia betes E11.9 and GERD (gastroesophageal reflux disease) K21.9 [facility] [place] [address] [address] May, [facility] [place] [address] [address] Apr, [facility] [place] [address] [phone] Mar, [facility] [place] [address] [id number] Mar, [facility] [place] [address] [id number] Feb, [facility] [place] [address] [id number] Feb, [facility] [place] [address] [facility] [id number] [address] [place] [phone] Jan, [facility] [place] [address] [facility] [id number] [address] [place] [phone] Jan, HTN (hypertension) I10 [facility] [place] [address] [facility] [id number] [address] [place] [address] Jan, [facility] [place] [address] [facility] [id number] [address] [place] [id number] Dec, Back pain M54.9 [facility] [place] [address] [facility] [id number] [address] [place] [phone] Dec, Back pain M54.9 [facility] [address] [facility] [id number] [address] [place] [phone] Dec, Encounter for immunization Z 23 and Puncture wound of right foot, initial encounter S91.331A [facility] [place] [address] [facility] [id number] [address] [place] [phone] Dec, [facility] [place] [address] [facility] [id number] [address] [place] [phone] Nov, [facility] [place] [address] [facility] [id number] [address] [place] [phone] Nov, COPD (chronic obstructive pu lmonary disease) J44.9 [facility] [place] [address] [facility] [id number] [address] [place] [phone] Nov, [facility] [place] [address] [facility] [id number] [address] [place] [phone] Oct, [facility] [place] [address] [facility] [id number] [address] [place] [phone] Oct, [facility] [place] [address] [place] [id number] [address] [place] [id number] September, Onychomycosis B35.1 and DM n euro manif type II E11.49 [facility] [place] [address] [place] [id number] [address] [place] [phone] September, [facility] [place] [address] [facility] [id number] [address] [place] [phone] Aug, [facility] [place] [address] [facility] [id number] [address] [place] [phone] Jul, Sinusitis, unspecified chron icity, unspecified location J32.9 and Cough R05 [facility] [place] [address] [facility] [id number] [address] [place] [phone] Jul, Back pain M54.9 [facility] [place] [address] [facility] [id number] [address] [place] [phone] 14 Jun, 2016 Back pain M54.9 [facility] [place] [address] [facility] [id number] [address] [place] [phone] 06 Jun, 2016 COPD (chronic obstructive pu lmonary disease) J44.9 [facility] [place] [address] [facility] [id number] [address] [place] [phone] May, [facility] [place] [address] [facility] [id number] [address] [place] [phone] May, [facility] [place] [address] [facility] [id number] [address] [place] [id number] May, Back pain M54.9 [facility] [place] [address] [facility] [id number] [address] [place] [phone] May, [facility] [place] [address] [facility] [id number] [address] [place] [phone] May, [facility] [place] [address] [facility] [id number] [address] [place] [phone] May, Diabetes E11.9 [facility] [place] [address] [facility] [id number] [address] [place] [phone] May, Diabetes E11.9 ; GERD (gastr oesophageal reflux [...] Need for hepatitis C screening test Z11.59 [facility] [place] [address] [id number] [address] [place] [id number] 04 May, 2016 HTN (hypertension) I10 [facility] [place] [address] [id number] [address] [place] [phone] 29 Apr, 2016 [facility] [place] [address] [id number] [address] [place] [phone] Apr, [facility] [place] [address] [id number] [address] [place] [phone] Apr, [facility] [place] [address] [id number] [address] [place] [phone] Apr, [facility] [place] [address] [id number] [address] [place] [phone] Apr, [facility] [place] [address] [id number] [address] [place] [phone] Mar, [facility] [place] [address] [id number] [address] [place] [phone] Mar, [facility] [place] [address] [id number] [address] [place] [phone] Mar, [facility] [place] [address] [id number] [address] [place] [phone] Mar, [facility] [place] [address] [id number] [address] [place] [phone] Mar, Dental examination Z01.20 [facility] [place] [address] [id number] [address] [place] [id number] 24 Feb, 2016 [facility] [place] [address] [id number] [address] [place] [phone] Feb, [facility] [place] [address] [id number] [address] [place] [phone] Feb, Back pain M54.9 [facility] [place] [address] [facility] [id number] [address] [place] [phone] Jan, [facility] [place] [address] [facility] [id number] [address] [place] [phone] Jan, [facility] [place] [address] [address] Dec, Diabetes E11.9 ; GERD (gastr oesophageal reflux disease) K21.9 ; ED (erectile dysfunction) N52.9 ; HTN (hypertension) I10 ; Insomnia G47.00 ; COPD (chronic obstructive pulmonary disease) J44.9 ; Neuropathy G62.9 and Bipolar depression F31.30 [facility] [place] [address] [place] [id number] [address] [place] [phone] Dec, 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 and Onychomycosis B35.1 [facility] [place] [id number] [place] [address] Dec, [facility] [place] [address] [place] [id number] [address] [place] [phone] Dec, [facility] [place] [address] [place] [id number] [address] [place] [phone] Dec, [facility] [place] [address] [place] [id number] [address] [place] [phone] Dec, [facility] [place] [address] [place] [id number] [address] [place] [id number] Nov, [facility] [place] [address] [facility] [id number] [address] [place] [phone] Nov, [facility] [place] [address] [place] [id number] [address] [place] [phone] Oct, [facility] [place] [address] [place] [id number] [address] [place] [phone] Oct, [facility] [place] [address] [facility] [id number] [address] [place] [id number] 07 Oct, 2015 Back pain M54.9 [facility] [place] [address] [facility] [id number] [address] [place] [phone] Oct, [facility] [place] [address] [facility] [id number] [address] [place] [phone] Oct, [facility] [place] [address] [facility] [id number] [address] [place] [phone] Oct, [facility] [place] [address] [facility] [id number] [address] [place] [phone] Oct, HTN (hypertension) I10 [place] [address] [facility] [id number] [address] [place] [id number] Oct, Back pain M54.9 [place] [address] [facility] [id number] [address] [place] [phone] Oct, Chronic pain syndrome G89.4 [place] [address] [facility] [id number] [address] [place] [phone] September, Back pain M54.9 [place] [address] [facility] [id number] [address] [place] [phone] September, HTN (hypertension) I10 [place] [address] [place] [id number] [address] [place] [id number] Aug, Porokeratosis Q82.8 ; Onycho mycosis B35.1 and Type 2 diabetes mellitus with other diabetic neurological complication E11.49 [facility] [place] [address] [facility] [id number] [address] [place] [id number] Aug, GERD (gastroesophageal reflu x disease) K21.9 ; Diabetes E11.9 ; HTN (hypertension) I10 ; Insomnia G47.00 ; Restless legs syndrome G25.81 ; COPD (chronic obstructive pulmonary disease) J44.9 ; Back pain M54.9 and Bipolar 1 disorder F31.9 [facility] [place] [address] [facility] [id number] [address] [place] [phone] Aug, [facility] [place] [address] [id number] [address] [place] [address], [place] [address] Aug, [facility] [place], [facility] [address] [id number] [address] [place] [address], [place] [address] Aug, [facility] [place], [facility] [address] [id number] [address] [place] [address], [place] [address] Aug, [facility] [place], [facility] [address] [id number] [address] [place] [address], [place] [address] Jul, [facility] [place], [facility] [address] [id number] [address] [place] [address], [place] [address] 31 Jul, 2015 [facility] [place], [facility] [address] [id number] [address] [place] [address], [place] [address] 30 Jul, 2015 [facility] [place], [facility] [address] [id number] [address] [place] [id number] 16 Jul, 2015 [facility] [place], [facility] [address] [id number] [address] [place] [id number] 15 Jul, 2015 [facility] [place], [facility] [address] [id number] [address] [place] [phone] Jul, [facility] [place], [facility] [address] [facility] [id number] [address] [place] [id number] 17 Jun, 2015 Decubital ulcer L89.90 ; Nathalia betes E11.9 ; Back pain M54.9 ; HTN (hypertension) I10 and COPD (chronic obstructive pulmonary disease) J44.9 [facility] [place], [facility] [address] [id number] [address] [place] [phone] Jun, [facility] [place], [facility] [address] [id number] [address] [place] [phone] Jun, [facility] [place], [facility] [address] [id number] [address] [place] [id number] Jun, [facility] [place], [facility] [address] [id number] [address] [place] [id number] Jun, [place] [id number] [place] [id number] [address] [place] [id number] Jun, Diabetes E11.9 ; Insomnia G4 7.00 ; Decubital ulcer L89.90 ; GERD (gastroesophageal reflux disease) K21.9 ; Back pain M54.9 ; Superficial fungus infection of skin B36.9 and HTN (hypertension) I10 [address] [place] [id number] [place] [id number] Jun, Dental examination Z01.20 [place] [address] [id number] May, [place] [address] [phone] May, [place] [address] [id number] May, [place] [address] [address] May, Diabetes E11.9 ; HTN (hypert ension) I10 and Decubital ulcer L89.90 [place] [address] [address] May, HTN (hypertension) I10 ; Dec ubital ulcer L89.90 and Diabetes E11.9 [place] [address] [id number] Apr, Diabetes E11.9 ; GERD (gastr oesophageal reflux disease) K21.9 ; Back pain M54.9 ; HTN (hypertension) I10 ; Restless legs syndrome G25.81 and Decubital ulcer L89.90 [place] [address] [address] Apr, [place] [address] [address] [address] Apr, Diabetes E11.9 ; HTN (hypert ension) I10 ; Restless legs syndrome G25.81 ; GERD (gastroesophageal reflux disease) K21.9 and COPD (chronic obstructive pulmonary disease) J44.9 [place] [address] [address] Mar, [facility] [place] [address] [address] Mar, [place] [address] [address] Mar, Diabetes E11.9 ; Abscess L02 .91 and Restless legs syndrome G25.81 [place] [address] [address] Mar, [place] [address] [address] Feb, GERD (gastroesophageal reflu x disease) K21.9 ; Back pain M54.9 ; ED (erectile dysfunction) N52.9 ; Diabetes E11.9 ; HTN (hypertension) I10 and Insomnia G47.00 [place] [address] [address] Feb, [place] [address] [address] Feb, [place] [address] [address] Jan, [place] [address] [address] 24 Jan, 2015 Diabetes 250.00 ; Nondepende nt cannabis abuse, continuous 305.21 ; Cough 786.2 ; Schizoaffective disorder, unspecified 295.70 ; Sciatica 724.3 ; Other, mixed, or unspecified nondependent drug abuse, unspecified 305.90 ; Chronic pain 338.29 ; GERD (gastroesophageal reflux disease) 530.81 and HTN (hypertension) 401.9 [place] [address] [address] Jan, [facility] [place] [address] [place] [id number] [address] [place] [address] Jan, [facility] [place] [address] [place] [id number] [address] [place] [address] Jan, Chronic pain associated with significant psychosocial dysfunction 338.4 ; Diabetes mellitus without mention of complication, type I [juvenile type], uncontrolled 250.03 ; Benign essential hypertension 401.1 ; Schizoaffective disorder, unspecified 295.70 ; Wheezing 786.07 ; Ear ache 388.70 ; Cough 786.2 ; Sciatica 724.3 and Foot pain, bilateral 729.5 [facility] [place] [address] [place] [id number] [address] [place] [address] Dec, [facility] [place] [address] [place] [id number] [address] [place] [address] Dec, [facility] [place] [address] [place] [id number] [place] [address] Dec, [facility] [place] [address] [place] [id number] [address] [place] [address] Dec, [facility] [place] [address] [place] [id number] [address] [place] [address] Dec, [facility] [place] [address] [place] [id number] [address] [place] [address] Nov, Elevated liver enzymes 790.5 [facility] [place] [address] [place] [id number] [address] [place] [address] Nov, [facility] [place] [address] [place] [id number] [address] [place] [address] Nov, [facility] [place] [address] [place] [id number] [address] [place] [address] Nov, [facility] [place] [address] [place] [id number] [address] [place] [address] Nov, Benign essential hypertensio n 401.1 ; Diabetes mellitus without mention of complication, type I [juvenile type], uncontrolled 250.03 and Nondependent cannabis abuse, continuous 305.21 [facility] [place] [address] [id number] [address] [place] [address] 19 Oct, 2014 Cellulitis 682.9 and Benign essential hypertension 401.1 [facility] [place] [address] [id number] [address] [place] [address] 08 Oct, 2014 [facility] [place] [address] [id number] [address] [place] [address] September, [facility] [place] [address] [id number] [address] [place] [address] September, [facility] [place] [address] [id number] [address] [place] [address] Aug, [facility] [place] [address] [id number] [address] [place] [address] Aug, [facility] [place] [address] [id number] [address] [place] [address] Aug, [facility] [place] [address] [id number] [address] [place] [address] Aug, [facility] [place] [address] [id number] [address] [place] [address] Jul, [facility] [place] [address] [id number] [address] [place] [address] Jul, [facility] [place] [address] [id number] [address] [place] [address] Jul, [facility] [place] [address] [id number] [address] [place] [address] Jul, [facility] [place] [address] [id number] [address] [place] [address] Jul, [facility] [place] [address] [id number] [address] [place] [address] Jul, [facility] [place] [address] [id number] [address] [place] [address] Jun, [facility] [address] [id number] [address] [place] [address], [place] [address] Jun, [facility] [address] [id number] [address] [place] [address], [place] [address] Jun, [facility] [address] [id number] [address] [place] [address], [place] [address] Jun, [facility] [address] [id number] [address] [place] [address], [place] [address] Jun, [facility] [address] [id number] [address] [place] [address], [place] [address] May, [facility] [address] [id number] [address] [place] [address], [place] [address] May, [facility] [address] [id number] [address] [place] [address], [place] [address] May, [facility] [address] [id number] [address] [place] [address], [place] [address] May, [facility] [address] [id number] [address] [place] [address], [place] [address] May, [facility] [address] [id number] [address] [place] [address], [place] [address] May, [facility] [address] [id number] [address] [place] [address], [place] [address] May, [facility] [address] [id number] [address] [place] [address], [place] [address] May, [facility] [address] [id number] [address] [place] [address], [place] [address] Apr, [facility] [address] [id number] [address] [place] [address], [place] [address] Apr, [facility] [address] [id number] [address] [place] [address], [place] [address] Apr, [facility] [address] [id number] [address] [place] [address] Apr, [facility] [address] [id number] [address] [place] [address], [place] [address] Mar, [facility] [address] [id number] [address] [place] [address], [place] [address] Mar, [facility] [address] [id number] [address] [place] [address], [place] [address] Mar, [facility] [address] [id number] [address] [place] [address], [place] [address] Mar, [facility] [address] [id number] [address] [place] [address], [place] [address] Feb, [facility] [address] [id number] [address] [place] [address], [place] [address] Feb, [facility] [address] [id number] [address] [place] [address], [place] [address] Feb, [facility] [address] [id number] [address] [place] [address], [place] [address] Feb, [facility] [address] [id number] [address] [place] [address], [place] [address] Feb, [facility] [address] [id number] [address] [place] [address], [place] [address] Feb, [facility] [address] [id number] [address] [place] [address], [place] [address] Jan, [facility] [address] [id number] [address] [place] [address] Jan, [facility] [address] [id number] [address] [place] [address], [place] [address] Jan, [facility] [address] [id number] [address] [place] [address], [place] [address] Jan, [facility] [address] [id number] [address] [place] [address], [place] [address] Dec, [facility] [address] [id number] [facility] [address] Dec, [facility] [address] [id number] [facility] [address] Dec, [facility] [address] [id number] [facility] [address] Dec, [facility] [address] [id number] [facility] [address] Dec, [facility] [address] [id number] [facility] [address] Dec, [facility] [address] [id number] [address] [place] [address], [place] [address] Oct, [facility] [address] [id number] [address] [place] [address], [place] [address] Oct, [facility] [address] [id number] [address] [place] [address], [place] [address] September, [facility] [address] [id number] [address] [place] [address], [place] [address] September, [facility] [address] [id number] [address] [place] [address], [place] [address] September, [facility] [address] [id number] [address] [place] [address], [place] [address] September, [facility] [address] [id number] [address] [place] [address], [place] [address] September, [facility] [address] [id number] [address] [place] [address], [place] [address] September, [facility] [address] [id number] [address] [place] [address], [place] [address] Aug, [facility] [address] [id number] [address] [place] [address], [place] [address] Aug, [facility] [address] [id number] [address] [place] [address], [place] [address] Aug, [facility] [address] [id number] [facility] [address] Aug, [facility] [address] [id number] [address] [place] [address], [place] [address] Jul, [facility] [address] [id number] [address] [place] [address], [place] [address] Jul, [facility] [address] [id number] [address] [place] [address], [place] [address] Jun, [facility] [address] [id number] [address] [place] [address], [place] [address] Jun, [facility] [address] [id number] [address] [place] [address], [place] [address] May, [facility] [address] [id number] [address] [place] [address], [place] [address] May, [facility] [address] [id number] [address] [place] [address], [place] [address] Jan, [facility] [address] [id number] [address] [place] [address], [place] [address] Dec, [facility] [address] [id number] [address] [place] [address], [place] [address] Jun, [facility] [address] [id number] [address] [place] [address], [place] [address] May, [facility] [address] [id number] [address] [place] [address], [place] [address] Nov, [facility] [address] [id number] [address] [place] [address], [place] [address] September, [facility] [address] [id number] [address] [place] [address], [place] [address] Aug, [facility] [address] [id number] [address] [place] [address], [place] [address] Aug, [facility] [address] [id number] [address] [place] [address] Aug, [facility] [place] [address] [id number] [address] [place] [address] Aug, [facility] [place] [address] [id number] [address] [place] [address] Nov, [facility] [place] [address] [id number] [address] [place] [address] Oct, [facility] [place] [address] [id number] [address] [place] [address] Jul, [facility] [place] [address] [id number] [address] [place] [address] Feb, [facility] [place] [address] [id number] [address] [place] [address] Feb, [facility] [place] [address] [id number] [address] [place] [address] Apr, [facility] [place] [address] [id number] [address] [place] [address] Apr, [facility] [place] [address] [id number] [address] [place] [address] Feb, [facility] [place] [address] [id number] [address] [place] [address] Feb, [facility] [place] [address] [id number] [address] [place] [address] Jul, IMMUNIZATIONS No Known Immunizations SOCIAL HISTORY [...] care on right toes - dr erickson 12/2 019 Hospitalization History Psych hospitalizations(numerous) Hospitalization History for surgeries Hospitalization History UTI 08/27/17 Hospitalization History foot wound 09/2017 Hospitalization History [facility] OD on drugs 09/15/2018 Hospitalization History [facility] 03/28/19 Hospitalization History [facility]- Toe amputation 01/2019
--- OUTSIDE RECORDS SUMMARY | 2019-09-09 08:31 | XMS REPORT ---
Author Author Sahil JAMESON NA [facility] Organization [facility] Address [address] [place] [address] Care Team Providers Care Classroom Teacher Name Role Phone MICHAEL CEDILLOMELIZA Unavailable PROBLEMS Type Condition ICD9-CM Code LLL89-OA Code Onset Dates Condition S tatus SNOMED Code Problem Restless legs syndrome G25.81 Active 884827078 Problem GERD (gastroesophageal reflux disease) K21.9 Active 001555559 Problem Sinusitis, unspecified chronicity, unspecified location J32.9 Active 08281068 Problem COPD (chronic obstructive pulmonary disease) J44.9 Active 31676105 Problem Ulcer of right foot, unspecified ulcer stage L97.5 19 Active 11856047 Problem DM neuro manif type II E11.49 Active 98476652 Problem Constipation, unspecified constipation type K59.00 Active 68170711 Problem Schizoaffective disorder, depressive type F25.1 Active 13367992 Problem PAD (peripheral artery disease) I73.9 Active 198790074 Problem Chronic hepatitis C without hepatic coma B18.2 Active 507158535 Problem Polyneuropathy G62.9 Active 72577 000 Problem Alcohol use disorder, severe, dependence F10.20 Active 63279397 Problem Methamphetamine use disorder, severe, 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 Active 140240805 Problem Morbid (severe) obesity due to excess calories E66 .01 Active 653406795 Problem Neuropathy G62.9 Active 523857972 Problem ED (erectile dysfunction) N52.9 Acti ve 398996078 Problem 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 Active 915528081 Problem Substance abuse F19.10 Active 6621 4007 Problem Personality disorder F60.9 Active 49498783 Problem HTN (hypertension) I10 Active 3 5291663 Problem Cannabis use disorder, severe, dependence F12.20 Active 13145193 Problem Ulcer of toe of right foot, unspecified ulcer stage L97.519 Active 224365602 Problem Amputated toe of right foot S98.131A Ac tive 286517366 Problem Hammer toe, unspecified laterality M20.40 Active 327777693 ALLERGIES No Information ENCOUNTERS Encounter Location Date Diagnosis [facility] [address] [id number] [address] [place] [id number] 17 Aug, 2019 [facility] [address] [facility] [id number] [address] [place] [address] 13 Aug, 2019 [facility] [address] [id number] [address] [place] [phone] 13 Aug, 2019 [facility] [address] [facility] [id number] [address] [place] [address] Aug, [facility] [address] [facility] [id number] [address] [place] [phone] 09 Aug, 2019 Chronic hepatitis C without hepatic coma B18.2 [facility] [address] [facility] [id number] [address] [place] [address] 06 Aug, 2019 [facility] [address] [facility] [id number] [address] [place] [address] 03 Aug, 2019 [facility] [address] [facility] [id number] [address] [place] [address] Aug, Polyneuropathy G62.9 [facility] [address] [facility] [id number] [address] [place] [phone] 24 Jul, 2019 [facility] [address] [facility] [id number] [address] [place] [phone] 23 Jul, 2019 [facility] [address] [facility] [id number] [address] [place] [phone] 18 Jul, 2019 [facility] [address] [facility] [id number] [address] [place] [phone] 10 Jul, 2019 [facility] [address] [facility] [id number] [address] [place] [phone] 10 Jul, 2019 [facility] [address] [facility] [id number] [address] [place] [phone] 09 Jul, 2019 [facility] [address] [id number] [address] [place] [phone] 09 Jul, 2019 [facility] [address] [id number] [address] [place] [address] 06 Jul, 2019 [facility] [address] [id number] [address] [place] [address] Jul, [facility] [address] [id number] [address] [place] [id number] 04 Jul, 2019 Polyneuropathy G62.9 [facility] [address] [id number] [address] [place] [address] Jun, 2019 [facility] [address] [id number] [address] [place] [address] Jun, 2019 [facility] [address] [id number] [address] [place] [address] Jun, 2019 [facility] [address] [id number] [address] [place] [address] Jun, 2019 [facility] [address] [id number] [address] [place] [address] 05 Jun, 2019 [facility] [address] [facility] [id number] [address] [place] [address] 04 Jun, 2019 Polyneuropathy G62.9 [facility] [address] [id number] [address] [place] [address] May, [facility] [address] [id number] [address] [place] [address] May, Foot callus L84 [facility] [address] [id number] [address] [place] [phone] May, [facility] [address] [facility] [id number] [address] [place] [address] May, [facility] [address] [id number] [address] [place] [address] 10 May, 2019 [facility] [address] [id number] [address] [place] [address] May, Polyneuropathy G62.9 ; HTN ( hypertension) I10 ; Schizoaffective disorder, depressive type F25.1 ; PAD (peripheral artery disease) I73.9 ; COPD (chronic obstructive pulmonary disease) J44.9 ; Amputated toe of right foot S98.131A ; Methamphetamine use disorder, severe, 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 and Type 2 diabetes mellitus with other diabetic neurological complication E11.49 [facility] [address] [id number] [address] [place] [address] May, [facility] [address] [facility] [id number] [address] [place] [address] May, [facility] [address] [facility] [id number] [address] [place] [address] May, [facility] [address] [facility] [id number] [address] [place] [address] May, [facility] [address] [facility] [id number] [address] [place] [address] May, [facility] [address] [facility] [id number] [address] [place] [address] May, Chronic hepatitis C without hepatic coma B18.2 and HTN (hypertension) I10 [facility] [address] [facility] [id number] [address] [place] [address] May, Neuropathy G62.9 [facility] [address] [facility] [id number] [address] [place] [address] Apr, [address] [id number] [address] Apr, [facility] [address] [facility] [id number] [address] [place] [address] Apr, [facility] [address] [facility] [id number] [address] [place] [address] Apr, [facility] [address] [id number] [address] [place] [address] Apr, [facility] [address] [id number] [address] [place] [address] Apr, [facility] [address] [facility] [id number] [address] [place] [address] Apr, [facility] [address] [id number] [address] [place] [address] Apr, Ulcer of right foot, unspeci fied ulcer stage L97.519 ; Type 2 diabetes mellitus with other diabetic neurological complication E11.49 ; Onychomycosis B35.1 and Hammer toe, unspecified laterality M20.40 [facility] [address] [facility] [id number] [address] [place] [address] Apr, [facility] [address] [facility] [id number] [address] [place] [address] Apr, HTN (hypertension) I10 and U lcer of toe of right foot, unspecified ulcer stage L97.519 [facility] [address] [facility] [id number] [address] [place] [address] Apr, [facility] [address] [facility] [id number] [address] [place] [address] Apr, Schizoaffective disorder, de pressive type F25.1 ; 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 and Stimulant use disorder F15.90 [facility] [address] [facility] [id number] [address] [place] [address] Apr, [facility] [address] [facility] [id number] [address] [place] [address] Apr, [facility] [address] [facility] [id number] [address] [place] [address] Apr, [facility] [address] [facility] [id number] [address] [place] [address] Mar, Pre-ulcerative calluses L84 [facility] [address] [facility] [id number] [address] [place] [address] Mar, HTN (hypertension) I10 ; DM neuro manif type II E11.49 ; Morbid (severe) obesity due to excess calories E66.01 and Polyneuropathy G62.9 [facility] [address] [facility] [id number] [address] [place] [address] Mar, [facility] [address] [facility] [id number] [address] [place] [address] Mar, [facility] [address] [facility] [id number] [address] [place] [address] Mar, Onychomycosis B35.1 ; Callus of foot L84 and Hammer toe, unspecified laterality M20.40 [facility] [address] [facility] [id number] [address] [place] [address] Mar, Neuropathy G62.9 [facility] [address] [facility] [id number] [address] [place] [address] Mar, [facility] [address] [facility] [id number] [address] [place] [address] Mar, [facility] [address] [facility] [id number] [address] [place] [address] Mar, [facility] [address] [facility] [id number] [address] [place] [address] Mar, Constipation, unspecified co nstipation type K59.00 [facility] [address] [id number] [address] [place] [address] Mar, [facility] [address] [facility] [id number] [address] [place] [address] Mar, [facility] [address] [facility] [id number] [address] [place] [address] Mar, Chronic hepatitis C without hepatic coma B18.2 ; High risk medication use Z79.899 and Encounter for immunization Z23 [facility] [address] [facility] [id number] [address] [place] [address] Mar, [facility] [address] [facility] [id number] [address] [place] [address] Mar, Neuropathy G62.9 [facility] [address] [facility] [id number] [address] [place] [address] Mar, High risk sexual behavior, u nspecified type Z72.51 [facility] [address] [facility] [id number] [address] [place] [address] Feb, Callus of foot L84 [facility] [address] [facility] [id number] [address] [place] [address] Feb, Callus of foot L84 [facility] [address] [facility] [id number] [address] [place] [address] Feb, [facility] [address] [facility] [id number] [address] [place] [address] Feb, [facility] [address] [facility] [id number] [place] [address] Feb, Methamphetamine use disorder, severe, de pendence F15.20 ; Alcohol use disorder, severe, dependence F10.20 and Cannabis use disorder, severe, dependence F12.20 [facility] [address] [facility] [id number] [address] [place] [address] Feb, Chronic hepatitis C without hepatic coma B18.2 [facility] [address] [facility] [id number] [address] Feb, Methamphetamine use disorder, severe, de pendence F15.20 ; Alcohol use disorder, severe, dependence F10.20 and Cannabis use disorder, severe, dependence F12.20 [facility] [address] [facility] [id number] [address] [place] [address] Feb, [facility] [address] [facility] [id number] [address] [place] [address] Feb, Chronic hepatitis C without hepatic coma B18.2 [facility] [address] [facility] [id number] [place] [address] Feb, Methamphetamine use disorder, severe, de pendence F15.20 ; Alcohol use disorder, severe, dependence F10.20 and Cannabis use disorder, severe, dependence F12.20 [facility] [address] [facility] [id number] [address] [place] [address] Feb, [facility] [address] [facility] [id number] [address] [place] [address] Feb, [facility] [address] [facility] [id number] [address] [place] [address] Feb, [facility] [address] [facility] [id number] [address] [place] [address] Feb, [facility] [address] [facility] [id number] [address] [place] [address] Feb, Neuropathy G62.9 [facility] [address] [place] [id number] [address] [place] [address] Feb, Schizoaffective disorder, de pressive type F25.1 ; 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 and Stimulant use disorder F15.90 [facility] [address] [facility] [id number] [address] [place] [address] Feb, Onychomycosis B35.1 and Neur opathy G62.9 [facility] [address] [facility] [id number] [address] [place] [address] Feb, [facility] [address] [facility] [id number] [address] [place] [address] Feb, [facility] [address] [facility] [id number] [address] [place] [address] Feb, [facility] [address] [facility] [id number] [place] [address] Feb, Methamphetamine use disorder, severe, de pendence F15.20 ; Alcohol use disorder, severe, dependence F10.20 and Cannabis use disorder, severe, dependence F12.20 [facility] [address] [facility] [id number] [address] [place] [address] Feb, Chronic hepatitis C without hepatic coma B18.2 and Encounter for immunization Z23 [facility] [address] [facility] [id number] [address] [place] [address] 30 Jan, 2019 [facility] [address] [facility] [id number] [address] [place] [address] Jan, [facility] [address] [facility] [id number] [address] [place] [address] Jan, [facility] [id number] [place] [address] Jan, Methamphetamine use disorder, severe, de pendence F15.20 ; Alcohol use disorder, severe, dependence F10.20 and Cannabis use disorder, severe, dependence F12.20 [facility] [address] [facility] [id number] [address] [place] [address] Jan, [facility] [address] [facility] [id number] [address] [place] [address] Jan, [facility] [address] [facility] [id number] [address] [place] [address] Jan, History of amputation Z89.9 [facility] [address] [facility] [id number] [address] [place] [address] Jan, [facility] [address] [facility] [id number] [address] [place] [address] Jan, [facility] [address] [facility] [id number] [address] [place] [address] Jan, [facility] [address] [facility] [id number] [address] [place] [address] Jan, [facility] [address] [facility] [id number] [address] [place] [address] Jan, [facility] [address] [facility] [id number] [address] [place] [address] 18 Jan, 2019 [facility] [address] [facility] [id number] [address] [place] [address] 18 Jan, 2019 [facility] [address] [facility] [id number] [address] [place] [address] 18 Jan, 2019 [facility] [address] [facility] [id number] [place] [address] 18 Jan, 2019 Methamphetamine use disorder, severe, de pendence F15.20 ; Alcohol use disorder, severe, dependence F10.20 and Cannabis use disorder, severe, dependence F12.20 [facility] [address] [facility] [id number] [address] [place] [address] 18 Jan, 2019 [facility] [address] [facility] [id number] [address] [place] [address] 16 Jan, 2019 [facility] [address] [facility] [id number] [address] [place] [address] 13 Jan, 2019 [facility] [address] [facility] [id number] [place] [address] Jan, Methamphetamine use disorder, severe, de pendence F15.20 ; Alcohol use disorder, severe, dependence F10.20 and Cannabis use disorder, severe, dependence F12.20 [facility] [address] [facility] [id number] [place] [id number] 06 Jan, 2019 Methamphetamine use disorder, severe, de pendence F15.20 ; Cannabis use disorder, severe, dependence F12.20 and Alcohol use disorder, severe, dependence F10.20 [facility] [address] [facility] [id number] [address] [place] [address] 06 Jan, 2019 Chronic hepatitis C without hepatic coma B18.2 [facility] [address] [facility] [id number] [address] [place] [address] 05 Jan, 2019 Neuropathy G62.9 [facility] [address] [facility] [id number] [address] [place] [address] Jan, [facility] [address] [facility] [id number] [address] [place] [address] Jan, [facility] [address] [place] [id number] [address] [place] [address] Jan, Chronic hepatitis C without hepatic coma B18.2 [facility] [address] [place] [id number] [address] [place] [address] Dec, Right foot pain M79.671 [place] [address] [address] Dec, Schizoaffective disorder, de pressive type F25.1 ; Other longterm (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.899 and Stimulant use disorder F15.90 [place] [address] [address] Dec, [facility] [address] [address] Dec, Methamphetamine use disorder, severe, de pendence F15.20 ; Alcohol use disorder, severe, dependence F10.20 and Cannabis use disorder, severe, dependence F12.20 [place] [address] [address] Dec, [place] [address] [address] Dec, [facility] [address] [place] [id number] [address] [place] [address] Dec, Ulcer of toe of right foot, unspecified ulcer stage L97.519 [facility] [address] [place] [id number] [place] [id number] Dec, [facility] [address] [address] Dec, Methamphetamine use disorder, severe, de pendence F15.20 ; Cannabis use disorder, severe, dependence F12.20 and Alcohol use disorder, severe, dependence F10.20 [place] [address] [place] [id number] [place] [phone] Dec, [facility] [address] [place] [id number] [place] [phone] Dec, Allergic contact dermatitis, unspecified trigger L23.9 and Ankle swelling, unspecified laterality M25.473 [facility] [address] [place] [id number] [place] [id number] Dec, [facility] [address] [place] [id number] [place] [id number] Dec, [facility] [address] [address] Dec, Methamphetamine use disorder, severe, de pendence F15.20 ; Alcohol use disorder, severe, dependence F10.20 and Cannabis use disorder, severe, dependence F12.20 [facility] [address] [address] Dec, [facility] [address] [address] Dec, [place] [address] [id number] Dec, Diarrhea of presumed infecti ous origin R19.7 ; Chronic hepatitis C without hepatic coma B18.2 and Nail fungus B35.1 [facility] [address] [place] [id number] [place] [id number] Dec, Neuropathy G62.9 [place] [address] [place] [id number] [place] [id number] Dec, [place] [address] [place] [id number] [place] [phone] Nov, Schizoaffective disorder, de pressive type F25.1 ; 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 and Stimulant use disorder F15.90 [facility] [address] [place] [id number] [place] [id number] Nov, [facility] [address] [place] [address] Nov, Substance abuse F19.10 [facility] [address] [facility] [id number] [address] [place] [phone] Nov, [facility] [address] [facility] [id number] [address] [place] [address] Nov, Chronic hepatitis C without hepatic coma B18.2 [facility] [address] [facility] [id number] [address] [place] [address] Nov, [facility] [address] [facility] [id number] [address] [place] [address] Nov, Fatigue, unspecified type R5 3.83 [facility] [address] [facility] [id number] [address] [place] [address] Nov, Schizoaffective disorder, de pressive type F25.1 ; Other longterm (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.899 and Stimulant use disorder F15.90 [facility] [address] [facility] [id number] [address] [place] [address] Nov, [facility] [address] [facility] [id number] [address] [place] [address] Nov, [facility] [address] [facility] [id number] [address] [place] [address] Nov, [facility] [address] [facility] [id number] [address] [place] [address] Oct, Neuropathy G62.9 [facility] [address] [facility] [id number] [address] [place] [address] Oct, Prediabetes R73.03 ; 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.899 and Chronic hepatitis C without hepatic coma B18.2 [facility] [address] [facility] [id number] [address] [place] [address] Oct, Schizoaffective disorder, de pressive type F25.1 and 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 [facility] [address] [id number] [address] [place] [address] 20 Oct, 2018 [facility] [address] [id number] [address] [place] [address] 14 Oct, 2018 Sore throat J02.9 and Acute non-recurrent frontal sinusitis J01.10 [facility] [address] [id number] [address] [place] [address] 11 Oct, 2018 [facility] [address] [id number] [address] [place] [address] 07 Oct, 2018 Acute URI J06.9 [facility] [address] [id number] [address] [place] [address] Oct, [facility] [address] [facility] [id number] [address] [place] [address] Oct, Schizoaffective disorder, de pressive type F25.1 [facility] [address] [facility] [id number] [address] [place] [address] Oct, [facility] [address] [facility] [id number] [address] [place] [address] Oct, Substance abuse F19.10 [facility] [address] [facility] [id number] [address] [place] [address] Oct, Bronchitis J40 [address] [id number] [address] September, Back pain M54.9 [facility] [address] [id number] [address] [place] [address] September, Schizoaffective disorder, de pressive type F25.1 [facility] [address] [facility] [id number] [address] [place] [address] September, [facility] [address] [facility] [address] [id number] [address] September, Substance abuse F19.10 [facility] [address] [facility] [id number] [address] [place] [address] September, [facility] [address] [id number] [address] [place] [address] September, Schizoaffective disorder, de pressive type F25.1 [facility] [address] [id number] [address] [place] [address] September, Substance abuse F19.10 [facility] [address] [facility] [id number] [address] [place] [address] September, [facility] [address] [facility] [id number] [address] [place] [address] September, Substance abuse F19.10 [facility] [address] [facility] [id number] [address] [place] [address] September, Encounter for Medicare ann l wellness exam Z00.00 ; Ulcer of right foot, unspecified ulcer stage L97.519 ; Type 2 diabetes mellitus with other diabetic neurological complication E11.49 ; COPD (chronic obstructive pulmonary disease) J44.9 ; PAD (peripheral artery disease) I73.9 ; Schizoaffective disorder, depressive type F25.1 and Routine adult health maintenance Z00.00 [facility] [address] [facility] [id number] [address] [place] [address] September, Schizoaffective disorder, de pressive type F25.1 [facility] [address] [facility] [id number] [address] [place] [address] September, [facility] [address] [facility] [id number] [address] [place] [address] September, [facility] [address] [facility] [id number] [address] [place] [address] September, Schizoaffective disorder, de pressive type F25.1 [facility] [address] [facility] [id number] [address] [place] [address] Aug, [facility] [address] [facility] [id number] [address] [place] [address] Aug, Rib pain on left side R07.81 and Closed fracture of multiple ribs of left side with routine healing, subsequent encounter S22.42XD [facility] [address] [facility] [id number] [address] [place] [address] Aug, [facility] [address] [id number] [address] [place] [address] Aug, [facility] [address] [facility] [id number] [address] [place] [address] Jul, [facility] [address] [id number] [address] [place] [address] Jul, [facility] [address] [facility] [id number] [address] [place] [address] Jul, [facility] [address] [facility] [id number] [address] [place] [address] Jul, Back pain M54.9 [facility] [address] [facility] [id number] [address] [place] [address] Jul, Polyneuropathy in diseases c lassified elsewhere G63 [facility] [address] [facility] [id number] [address] [place] [address] Jul, Constipation, unspecified co nstipation type K59.00 and Burn T30.0 [facility] [address] [facility] [id number] [address] [place] [address] Jul, [facility] [address] [facility] [id number] [address] [place] [address] Jun, 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 [facility] [address] [facility] [id number] [address] [place] [address] Jun, Back pain M54.9 [facility] [address] [facility] [id number] [address] [place] [address] Jun, 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 [facility] [address] [id number] [address] [place] [address] Jun, [facility] [address] [id number] [address] [place] [address] Jun, [facility] [address] [id number] [address] [place] [address] Jun, [facility] [address] [id number] [address] [place] [address] May, [facility] [address] [id number] [address] [place] [address] May, Back pain M54.9 [facility] [address] [id number] [address] [place] [address] May, [facility] [address] [facility] [id number] [address] [place] [address] May, 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 ; Chronic hepatitis C without hepatic coma B18.2 and HTN (hypertension) I10 [facility] [address] [id number] [address] [place] [address] Apr, Back pain M54.9 [facility] [address] [id number] [address] [place] [address] Apr, [facility] [address] [id number] [address] [place] [address] Apr, Polyneuropathy in diseases c lassified elsewhere G63 [facility] [address] [id number] [address] [place] [address] Mar, Back pain M54.9 [facility] [address] [id number] [address] [place] [address] Mar, [facility] [address] [facility] [id number] [address] [place] [address] Mar, Back pain M54.9 [facility] [address] [id number] [address] [place] [address] Mar, [facility] [address] [id number] [address] [place] [address] Mar, [facility] [address] [id number] [address] [place] [address] Mar, Polyneuropathy in diseases c lassified elsewhere G63 [facility] [address] [id number] [address] [place] [address] Feb, Back pain M54.9 [facility] [address] [id number] [address] [place] [address] Jan, Back pain M54.9 [facility] [address] [id number] [address] [place] [address] Jan, [facility] [address] [id number] [address] [place] [address] Jan, [facility] [address] [id number] [address] [place] [address] Dec, Back pain M54.9 [facility] [address] [id number] [address] [place] [address] Dec, [facility] [address] [id number] [address] [place] [address] Dec, Upper respiratory tract infe ction, unspecified type J06.9 [facility] [address] [id number] [address] [place] [address] Dec, [facility] [address] [id number] [address] [place] [address] Dec, Acute suppurative otitis med ia of right ear without spontaneous rupture of tympanic membrane, recurrence not specified H66.001 and Acute nasopharyngitis J00 [facility] [address] [id number] [address] [place] [address] Dec, Back pain M54.9 [facility] [address] [id number] [address] [place] [address] Dec, Foot infection L08.9 and 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 [facility] [address] [id number] [address] [place] [address] Nov, Cellulitis of toe of right f oot L03.031 ; Polyneuropathy in diseases classified elsewhere G63 and HTN (hypertension) I10 [facility] [address] [id number] [address] [place] [address] Nov, [facility] [address] [id number] [address] [place] [address] Nov, [facility] [address] [facility] [id number] [address] [place] [address] Nov, Back pain M54.9 [facility] [address] [facility] [id number] [address] [place] [address] Nov, Shortness of breath R06.02 [facility] [address] [id number] [address] [place] [address] Nov, [facility] [address] [facility] [id number] [address] [place] [address] Oct, [facility] [address] [id number] [address] [place] [address] Oct, [facility] [address] [facility] [id number] [address] [place] [address] Oct, [facility] [address] [id number] [address] [place] [address] Oct, [facility] [address] [facility] [id number] [address] [place] [address] Oct, [facility] [address] [facility] [id number] [address] [place] [address] Oct, Back pain M54.9 [facility] [address] [facility] [id number] [address] [place] [address] Oct, Back pain M54.9 [facility] [address] [id number] [address] [place] [address] Oct, [facility] [address] [id number] [address] [place] [address] September, [facility] [address] [id number] [address] [place] [address] September, [facility] [address] [id number] [address] [place] [address] September, [facility] [address] [id number] [address] [place] [address] September, 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 and Hypotension, unspecified hypotension type I95.9 [facility] [address] [id number] [address] [place] [address] September, [facility] [address] [id number] [address] [place] [address] September, [facility] [address] [id number] [address] [place] [address] September, Back pain M54.9 [facility] [address] [facility] [id number] [address] [place] [address] Aug, [facility] [address] [id number] [address] [place] [address] Aug, Acute cystitis with hematuri a N30.01 ; Ulcer of right foot, unspecified ulcer stage L97.519 ; HTN (hypertension) I10 ; COPD (chronic obstructive pulmonary disease) J44.9 and DM neuro manif type II E11.49 [facility] [address] [id number] [address] [place] [address] Aug, Back pain M54.9 [facility] [address] [facility] [id number] [address] [place] [address] Jul, [facility] [address] [id number] 14 Jul, 2017 Back pain M54.9 [facility] [address] [facility] [id number] [place] [address] Jul, [facility] [address] [address] 09 Jul, 2017 DM neuro manif type II E11.4 9 and Ulcer of right foot, unspecified ulcer stage L97.519 [facility] [address] [id number] 19 Jun, 2017 [facility] [address] [id number] Jun, [facility] [address] [address] May, 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 ; GERD (gastroesophageal reflux disease) K21.9 and PAD (peripheral artery disease) I73.9 [facility] [address] [address] May, Decubital ulcer L89.90 ; Nathalia betes E11.9 and GERD (gastroesophageal reflux disease) K21.9 [facility] [address] [address] May, [facility] [address] [address] Apr, [facility] [address] [address] Mar, [facility] [address] [id number] Mar, [facility] [address] [address] Feb, [facility] [address] [id number] Feb, [facility] [address] [facility] [id number] [address] [place] [address] Jan, [facility] [address] [facility] [id number] [address] [place] [address] Jan, HTN (hypertension) I10 [facility] [address] [facility] [id number] [address] [place] [address] Jan, [facility] [address] [facility] [id number] [address] [place] [address] Dec, Back pain M54.9 [facility] [address] [facility] [id number] [address] [place] [address] Dec, Back pain M54.9 [facility] [address] [facility] [id number] [address] [place] [address] Dec, Encounter for immunization Z 23 and Puncture wound of right foot, initial encounter S91.331A [facility] [address] [facility] [id number] [address] [place] [address] Dec, [facility] [address] [facility] [id number] [address] [place] [address] Nov, [facility] [address] [facility] [id number] [address] [place] [address] Nov, COPD (chronic obstructive pu lmonary disease) J44.9 [facility] [address] [facility] [id number] [address] [place] [address] Nov, [facility] [address] [facility] [id number] [address] [place] [address] Oct, [facility] [address] [facility] [id number] [address] [place] [address] Oct, [facility] [address] [place] [id number] [address] [place] [address] September, Onychomycosis B35.1 and DM n euro manif type II E11.49 [facility] [address] [place] [id number] [address] [place] [address] September, [facility] [address] [facility] [id number] [address] [place] [address] Aug, [facility] [address] [facility] [id number] [address] [place] [address] Jul, Sinusitis, unspecified chron icity, unspecified location J32.9 and Cough R05 [facility] [address] [facility] [id number] [address] [place] [address] Jul, Back pain M54.9 [facility] [address] [facility] [id number] [address] [place] [address] 14 Jun, 2016 Back pain M54.9 [facility] [address] [facility] [id number] [address] [place] [address] 06 Jun, 2016 COPD (chronic obstructive pu lmonary disease) J44.9 [facility] [address] [facility] [id number] [address] [place] [address] May, [facility] [address] [facility] [id number] [address] [place] [address] May, [facility] [address] [facility] [id number] [address] [place] [address] May, Back pain M54.9 [facility] [address] [facility] [id number] [address] [place] [address] May, [facility] [address] [facility] [id number] [address] [place] [address] May, [facility] [address] [facility] [id number] [address] [place] [address] May, Diabetes E11.9 [facility] [address] [facility] [id number] [address] [place] [address] May, Diabetes E11.9 ; GERD (gastr oesophageal [...] Need for hepatitis C screening test Z11.59 [facility] [address] [id number] [address] [place] [id number] 04 May, 2016 HTN (hypertension) I10 [facility] [address] [id number] [address] [place] [address] 29 Apr, 2016 [facility] [address] [id number] [address] [place] [address] Apr, [facility] [address] [id number] [address] [place] [address] Apr, [facility] [address] [id number] [address] [place] [address] Apr, [facility] [address] [id number] [address] [place] [id number] Apr, [facility] [address] [id number] [address] [place] [id number] Mar, [facility] [address] [id number] [address] [place] [id number] Mar, [facility] [address] [id number] [address] [place] [id number] Mar, [facility] [address] [id number] [address] [place] [id number] Mar, [facility] [address] [id number] [address] [place] [id number] Mar, Dental examination Z01.20 [facility] [address] [id number] [address] [place] [id number] 24 Feb, 2016 [facility] [address] [id number] [address] [place] [id number] Feb, [facility] [address] [id number] [address] [place] [id number] Feb, Back pain M54.9 [facility] [address] [facility] [id number] [address] [place] [id number] Jan, [facility] [address] [facility] [id number] [address] [place] [id number] Jan, [facility] [address] [id number] Dec, Diabetes E11.9 ; GERD (gastr oesophageal reflux disease) K21.9 ; ED (erectile dysfunction) N52.9 ; HTN (hypertension) I10 ; Insomnia G47.00 ; COPD (chronic obstructive pulmonary disease) J44.9 ; Neuropathy G62.9 and Bipolar depression F31.30 [facility] [address] [place] [id number] [address] [place] [id number] Dec, 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 and Onychomycosis B35.1 [facility] [id number] [place] [id number] Dec, [facility] [address] [place] [id number] [address] [place] [id number] Dec, [facility] [address] [place] [id number] [address] [place] [id number] Dec, [facility] [address] [place] [id number] [address] [place] [id number] Dec, [facility] [address] [place] [id number] [address] [place] [id number] Nov, [facility] [address] [facility] [id number] [address] [place] [id number] Nov, [facility] [address] [place] [id number] [address] [place] [id number] Oct, [facility] [address] [place] [id number] [address] [place] [id number] Oct, [facility] [address] [facility] [id number] [address] [place] [id number] 07 Oct, 2015 Back pain M54.9 [facility] [address] [facility] [id number] [address] [place] [id number] Oct, [facility] [address] [facility] [id number] [address] [place] [id number] Oct, [facility] [address] [facility] [id number] [address] [place] [id number] Oct, [facility] [address] [facility] [id number] [address] [place] [id number] Oct, HTN (hypertension) I10 [place] [address] [facility] [id number] [address] [place] [address] [address] Oct, Back pain M54.9 [place] [address] [address] [facility] [id number] [address] [place] [address] Oct, Chronic pain syndrome G89.4 [place] [address] [address] [facility] [id number] [address] [place] [address] September, Back pain M54.9 [place] [address] [address] [facility] [id number] [address] [place] [address] September, HTN (hypertension) I10 [place] [address] [address] [place] [id number] [address] [place] [address] Aug, Porokeratosis Q82.8 ; Onycho mycosis B35.1 and Type 2 diabetes mellitus with other diabetic neurological complication E11.49 [facility] [address] [facility] [id number] [address] [place] [address] Aug, GERD (gastroesophageal reflu x disease) K21.9 ; Diabetes E11.9 ; HTN (hypertension) I10 ; Insomnia G47.00 ; Restless legs syndrome G25.81 ; COPD (chronic obstructive pulmonary disease) J44.9 ; Back pain M54.9 and Bipolar 1 disorder F31.9 [facility] [address] [facility] [id number] [address] [place] [address] Aug, [facility] [address] [id number] [address] [place] [address], [place] [address] Aug, [facility] [address] [id number] [address] [place] [address], [place] [address] Aug, [facility] [address] [id number] [address] [place] [address], [place] [address] Aug, [facility] [address] [id number] [address] [place] [address], [place] [address] Jul, [facility] [address] [id number] [address] [place] [address], [place] [address] 31 Jul, 2015 [facility] [address] [id number] [address] [place] [address], [place] [address] 30 Jul, 2015 [facility] [address] [id number] [address] [place] [address] 16 Jul, 2015 [facility] [address] [id number] [address] [place] [address] 15 Jul, 2015 [facility] [address] [id number] [address] [place] [address] Jul, [facility] [address] [facility] [id number] [address] [place] [address] 17 Jun, 2015 Decubital ulcer L89.90 ; Nathalia betes E11.9 ; Back pain M54.9 ; HTN (hypertension) I10 and COPD (chronic obstructive pulmonary disease) J44.9 [facility] [address] [id number] [address] [place] [address] Jun, [facility] [address] [id number] [address] [place] [address] Jun, [facility] [address] [id number] [address] [place] [address] Jun, [facility] [address] [id number] [address] [place] [address] Jun, [place] [place] [id number] [address] [place] [address] Jun, Diabetes E11.9 ; Insomnia G4 7.00 ; Decubital ulcer L89.90 ; GERD (gastroesophageal reflux disease) K21.9 ; Back pain M54.9 ; Superficial fungus infection of skin B36.9 and HTN (hypertension) I10 [address] [place] [id number] [place] [id number] Jun, Dental examination Z01.20 [place] [address] [address] May, [place] [address] [address] May, [place] [address] [address] May, [place] [address] [address] May, Diabetes E11.9 ; HTN (hypert ension) I10 and Decubital ulcer L89.90 [place] [address] [address] May, HTN (hypertension) I10 ; Dec ubital ulcer L89.90 and Diabetes E11.9 [place] [address] [address] Apr, Diabetes E11.9 ; GERD (gastr oesophageal reflux disease) K21.9 ; Back pain M54.9 ; HTN (hypertension) I10 ; Restless legs syndrome G25.81 and Decubital ulcer L89.90 [place] [address] [address] Apr, [place] [address] [address] Apr, Diabetes E11.9 ; HTN (hypert ension) I10 ; Restless legs syndrome G25.81 ; GERD (gastroesophageal reflux disease) K21.9 and COPD (chronic obstructive pulmonary disease) J44.9 [place] [address] [address] Mar, [facility] [address] [address] Mar, [place] [address] [address] Mar, Diabetes E11.9 ; Abscess L02 .91 and Restless legs syndrome G25.81 [place] [address] [address] Mar, [place] [address] [address] Feb, GERD (gastroesophageal reflu x disease) K21.9 ; Back pain M54.9 ; ED (erectile dysfunction) N52.9 ; Diabetes E11.9 ; HTN (hypertension) I10 and Insomnia G47.00 [place] [address] [address] Feb, [place] [address] [address] Feb, [place] [address] [address] Jan, [place] [address] [address] 24 Jan, 2015 Diabetes 250.00 ; Nondepende nt cannabis abuse, continuous 305.21 ; Cough 786.2 ; Schizoaffective disorder, unspecified 295.70 ; Sciatica 724.3 ; Other, mixed, or unspecified nondependent drug abuse, unspecified 305.90 ; Chronic pain 338.29 ; GERD (gastroesophageal reflux disease) 530.81 and HTN (hypertension) 401.9 [place] [address] [address] Jan, [facility] [address] [place] [id number] [address] [place] [address] Jan, [facility] [address] [place] [id number] [address] [place] [address] Jan, Chronic pain associated with significant psychosocial dysfunction 338.4 ; Diabetes mellitus without mention of complication, type I [juvenile type], uncontrolled 250.03 ; Benign essential hypertension 401.1 ; Schizoaffective disorder, unspecified 295.70 ; Wheezing 786.07 ; Ear ache 388.70 ; Cough 786.2 ; Sciatica 724.3 and Foot pain, bilateral 729.5 [facility] [address] [place] [id number] [address] [place] [address] Dec, [facility] [address] [place] [id number] [address] [place] [address] Dec, [facility] [address] [place] [id number] [place] [address] Dec, [facility] [address] [place] [id number] [address] [place] [address] Dec, [facility] [address] [place] [id number] [address] [place] [address] Dec, [facility] [address] [place] [id number] [address] [place] [address] Nov, Elevated liver enzymes 790.5 [facility] [address] [place] [id number] [address] [place] [address] Nov, [facility] [address] [place] [id number] [address] [place] [address] Nov, [facility] [address] [place] [id number] [address] [place] [address] Nov, [facility] [address] [place] [id number] [address] [place] [address] Nov, Benign essential hypertensio n 401.1 ; Diabetes mellitus without mention of complication, type I [juvenile type], uncontrolled 250.03 and Nondependent cannabis abuse, continuous 305.21 [facility] [address] [id number] [address] [place] [address] 19 Oct, 2014 Cellulitis 682.9 and Benign essential hypertension 401.1 [facility] [address] [id number] [address] [place] [address] 08 Oct, 2014 [facility] [address] [id number] [address] [place] [address] September, [facility] [address] [id number] [address] [place] [address] September, [facility] [address] [id number] [address] [place] [address] Aug, [facility] [address] [id number] [address] [place] [address] Aug, [facility] [address] [id number] [address] [place] [address] Aug, [facility] [address] [id number] [address] [place] [address] Aug, [facility] [address] [id number] [address] [place] [address] Jul, [facility] [address] [id number] [address] [place] [address] Jul, [facility] [address] [id number] [address] [place] [address] Jul, [facility] [address] [id number] [address] [place] [address] Jul, [facility] [address] [id number] [address] [place] [address] Jul, [facility] [address] [id number] [address] [place] [address] Jul, [facility] [address] [id number] [address] [place] [address] Jun, [facility] [address] [id number] [address] [place] [address], [place] [address] Jun, [facility] [address] [id number] [address] [place] [address], [place] [address] Jun, [facility] [address] [id number] [address] [place] [address], [place] [address] Jun, [facility] [address] [id number] [address] [place] [address], [place] [address] Jun, [facility] [address] [id number] [address] [place] [address], [place] [address] May, [facility] [address] [id number] [address] [place] [address], [place] [address] May, [facility] [address] [id number] [address] [place] [address], [place] [address] May, [facility] [address] [id number] [address] [place] [address], [place] [address] May, [facility] [address] [id number] [address] [place] [address], [place] [address] May, [facility] [address] [id number] [address] [place] [address], [place] [address] May, [facility] [address] [id number] [address] [place] [address], [place] [address] May, [facility] [address] [id number] [address] [place] [address], [place] [address] May, [facility] [address] [id number] [address] [place] [address], [place] [address] Apr, [facility] [address] [id number] [address] [place] [address], [place] [address] Apr, [facility] [address] [id number] [address] [place] [address], [place] [address] Apr, [facility] [address] [id number] [address] [place] [address] Apr, [facility] [address] [id number] [address] [place] [address], [place] [address] Mar, [facility] [address] [id number] [address] [place] [address], [place] [address] Mar, [facility] [address] [id number] [address] [place] [address], [place] [address] Mar, [facility] [address] [id number] [address] [place] [address], [place] [address] Mar, [facility] [address] [id number] [address] [place] [address], [place] [address] Feb, [facility] [address] [id number] [address] [place] [address], [place] [address] Feb, [facility] [address] [id number] [address] [place] [address], [place] [address] Feb, [facility] [address] [id number] [address] [place] [address], [place] [address] Feb, [facility] [address] [id number] [address] [place] [address], [place] [address] Feb, [facility] [address] [id number] [address] [place] [address], [place] [address] Feb, [facility] [address] [id number] [address] [place] [address], [place] [address] Jan, [facility] [address] [id number] [address] [place] [address] Jan, [facility] [address] [id number] [address] [place] [address], [place] [address] Jan, [facility] [address] [id number] [address] [place] [address], [place] [address] Jan, [facility] [address] [id number] [address] [place] [address], [place] [address] Dec, [facility] [address] [id number] [facility] [place] [address] Dec, [facility] [address] [id number] [facility] [place] [address] Dec, [facility] [address] [id number] [facility] [place] [address] Dec, [facility] [address] [id number] [facility] [place] [address] Dec, [facility] [address] [id number] [facility] [place] [address] Dec, [facility] [address] [id number] [address] [place] [address], [place] [address] Oct, [facility] [address] [id number] [address] [place] [address], [place] [address] Oct, [facility] [address] [id number] [address] [place] [address], [place] [address] September, [facility] [address] [id number] [address] [place] [address], [place] [address] September, [facility] [address] [id number] [address] [place] [address], [place] [address] September, [facility] [address] [id number] [address] [place] [address], [place] [address] September, [facility] [address] [id number] [address] [place] [address], [place] [address] September, [facility] [address] [id number] [address] [place] [address], [place] [address] September, [facility] [address] [id number] [address] [place] [address], [place] [address] Aug, [facility] [address] [id number] [address] [place] [address], [place] [address] Aug, [facility] [address] [id number] [address] [place] [address], [place] [address] Aug, [facility] [address] [id number] [facility] [place] [address] Aug, [facility] [address] [id number] [address] [place] [address], [place] [address] Jul, [facility] [address] [id number] [address] [place] [address], [place] [address] Jul, [facility] [address] [id number] [address] [place] [address], [place] [address] Jun, [facility] [address] [id number] [address] [place] [address], [place] [address] Jun, [facility] [address] [id number] [address] [place] [address], [place] [address] May, [facility] [address] [id number] [address] [place] [address], [place] [address] May, [facility] [address] [id number] [address] [place] [address], [place] [address] Jan, [facility] [address] [id number] [address] [place] [address], [place] [address] Dec, [facility] [address] [id number] [address] [place] [address], [place] [address] Jun, [facility] [address] [id number] [address] [place] [address], [place] [address] May, [facility] [address] [id number] [address] [place] [address], [place] [address] Nov, [facility] [address] [id number] [address] [place] [address], [place] [address] September, [facility] [address] [id number] [address] [place] [address], [place] [address] Aug, [facility] [address] [id number] [address] [place] [address], [place] [address] Aug, [facility] [address] [id number] [address] [place] [address] Aug, [facility] [address] [id number] [address] [place] [address] Aug, [facility] [address] [id number] [address] [place] [address] Nov, [facility] [address] [id number] [address] [place] [address] Oct, [facility] [address] [id number] [address] [place] [address] Jul, [facility] [address] [id number] [address] [place] [address] Feb, [facility] [address] [id number] [address] [place] [address] Feb, [facility] [address] [id number] [address] [place] [address] Apr, [facility] [address] [id number] [address] [place] [address] Apr, [facility] [address] [id number] [address] [place] [address] Feb, [facility] [address] [id number] [address] [place] [address] Feb, [facility] [address] [id number] [address] [place] [address] Jul, IMMUNIZATIONS No Known Immunizations SOCIAL HISTORY Never Assessed REASON FOR VISIT PLAN OF CARE VITAL SIGNS Height 70 in 2014-01-03 Weight 247.6 lbs 2014-01-03 Temperature 98.4 degrees Fahrenheit 2014-01-03 Heart Rate 88 bpm 2014-01-03 Respiratory Rate 18 2014-01-03 Blood pressure systolic 140 mmHg 2014-01-03 Blood pressure diastolic 100 mmHg 2014-01-03 MEDICATIONS Unknown Medications RESULTS No Results PROCEDURES [...] right toes - dr erickson 04/11 019 Hospitalization History Psych hospitalizations(numerous) Hospitalization History for surgeries Hospitalization History UTI 08/27/17 Hospitalization History foot wound 09/2017 Hospitalization History [facility] OD on drugs 09/15/2018 Hospitalization History [facility] 03/28/19 Hospitalization History [facility]- Toe amputation 01/2019
--- NOTE | 2019-09-09 08:32 | ED Abdominal Pain ---
General Chief Complaint: Abdominal/GI Problems Stated Complaint: ABD PAIN Source of Information: Patient History of Present Illness Date Seen by Provider: September 09, 2019 Time Seen by Provider: 08:30 Initial Comments 44-year-old male brought in by EMS. Patient call EMS due to abdominal pain. Patient has pain in the left lateral lower quadrants. Patient reports been gone for about 2 to have days. Patient states that he has a history of "pancreatitis" and that he thinks is acting up again. Patient admits to drinking alcohol yesterday. He has not had a bowel movement in a couple days. Patient denies any nausea or vomiting. He does not have any radiation of the pain to his back. He does not have any right upper quadrant pain. Denies any fevers or chills patient admits to drinking alcohol yesterday.. Allergies and Home Medications Allergies Coded Allergies: latex (Unverified Allergy, Intermediate, 07/20/19) Haloperidol Lactate (Unverified Allergy, Mild, 07/20/19) chlorpromazine HCl (Unverified Allergy, Mild, 07/20/19) haloperidol (Unverified Allergy, Mild, 07/20/19) Home Medications Albuterol Sulfate 18 Gm Hfa.aer.ad, 2 PUFF INH Q4H PRN for SHORTNESS OF BREATH, (Reported) Amitriptyline HCl 100 Mg Tablet, 100 MG PO HS, (Reported) Cariprazine Hydrochloride 4.5 Mg Capsule, 4.5 MG PO DAILY, (Reported) Cephalexin 500 Mg Capsule, 500 MG PO BID Prescribed by: LORRI CALI on 03/30/19 1022 Divalproex Sodium 500 Mg Tablet.dr, 500 MG PO BID, (Reported) Duloxetine HCl 60 Mg Capsule.dr, 60 MG PO DAILY, (Reported) Ledipasvir/Sofosbuvir 1 Each Tablet, 1 TAB PO DAILY, (Reported) FILLED #28 03-10-19 Lisinopril 20 Mg Tablet, 20 MG PO DAILY, (Reported) Metoprolol Succinate 50 Mg Tab.er.24h, 50 MG PO DAILY, (Reported) Ropinirole HCl 3 Mg Tablet, 3 MG PO 2000, (Reported) Tramadol HCl 50 Mg Tablet, 50 MG PO TID PRN for PAIN-MODERATE, (Reported) Trazodone HCl 100 Mg Tablet, 100 MG PO HS, (Reported) Patient Home Medication List Home Medication List Reviewed: Yes Review of Systems Review of Systems Constitutional: No chills, No fever Respiratory: No Symptoms Reported Cardiovascular: No Symptoms Reported Gastrointestinal: Abdominal Pain, Constipated Genitourinary: No Symptoms Reported Musculoskeletal: no symptoms reported Past Qodsoos-Wdzcmr-Qdqojp Hx Past Med/Social Hx: Reviewed Nursing Past Med/Soc Hx Patient Social History Alcohol Beverage of Choice: Beer Drug of Choice: history of METH, Marijuana, Cocaine Type Used: Cigarettes 2nd Hand Smoke Exposure: Yes Recent Hopitalizations: Yes Immunizations Up To Date Date of Pneumonia Vaccine: Jan 09, 2019 Date of Influenza Vaccine: Jan 09, 2019 Seasonal Allergies Seasonal Allergies: No Past Medical History Surgeries: Yes (RIGHT HAND, amputation right little toe, AMPUTATION RIGHT BIG TOE) Orthopedic Respiratory: No Currently Using CPAP: No Currently Using BIPAP: No Cardiac: Yes Hypertension Neurological: Yes Headaches /Migraines Reproductive Disorders: No Genitourinary: No Gastrointestinal: No Hepatitis Musculoskeletal: Yes Endocrine: Yes ('was diabetic") HEENT: No Loss of Vision: Denies Hearing Impairment: Denies Cancer: No Psychosocial: Yes (HISTORY OF INTENTIONAL OVERDOSE IN 2003, AND AGAIN 09/15/18) Suicide Attempts, Bipolar, Schizophrenia, Violent Behavior Integumentary: Yes (DIABETIC FOOT ULCER) Blood Disorders: No Adverse Reaction/Blood Tranf: No Family Medical History AIDS Alcoholism 19 FATHER 19 MOTHER Other Conditions/Hx Physical Exam Vital Signs Vital Signs - First Documented 09/09/19 08:22 Temp 36.8 Pulse 107 Resp 18 B/P (MAP) 164/113 (130) Pulse Ox 99 O2 Delivery Room Air Capillary Refill : Height/Weight/BMI Height: 5'10.00" Weight: 258lbs. 6.1oz. 117.391515km; 38.59 BMI Method:Stated General Appearance: WD/WN, no apparent distress HEENT: PERRL/EOMI Neck: full range of motion Respiratory: chest non-tender, lungs clear, normal breath sounds Cardiovascular: normal peripheral pulses, regular rate, rhythm, no edema Gastrointestinal: soft; No distended, No guarding, No rebound; tenderness (mild left lateral, left lower quadrant ) Extremities: normal range of motion, non-tender Back: no CVA tenderness Neurologic/Psychiatric: alert, normal mood/affect, oriented x 3 Procedures/Interventions Date of ETT Placement: September 15, 2018 Time of ETT Placement: 2231 Progress/Results/Core Measures Results/Orders Lab Results Laboratory Tests Test 09/09/19 08:33 09/09/19 09:45 Range/Units White Blood Count 12.1 H 4.3-11.0 10^3/uL Red Blood Count 4.86 4.35-5.85 10^6/uL Hemoglobin 16.3 13.3-17.7 G/DL Hematocrit 45 40-54 % Mean Corpuscular Volume 92 80-99 FL Mean Corpuscular Hemoglobin 34 25-34 PG Mean Corpuscular Hemoglobin Concent 37 H 32-36 G/DL Red Cell Distribution Width 12.4 10.0-14.5 % Platelet Count 191 130-400 10^3/uL Mean Platelet Volume 10.0 7.4-10.4 FL Neutrophils (%) (Auto) 69 42-75 % Lymphocytes (%) (Auto) 16 12-44 % Monocytes (%) (Auto) 14 H 0-12 % Eosinophils (%) (Auto) 0 0-10 % Basophils (%) (Auto) 0 0-10 % Neutrophils # (Auto) 8.4 H 1.8-7.8 X 10^3 Lymphocytes # (Auto) 1.9 1.0-4.0 X 10^3 Monocytes # (Auto) 1.7 H 0.0-1.0 X 10^3 Eosinophils # (Auto) 0.0 0.0-0.3 10^3/uL Basophils # (Auto) 0.0 0.0-0.1 10^3/uL Prothrombin Time 14.9 H 12.2-14.7 SEC INR Comment 1.1 0.8-1.4 Sodium Level 128 L 135-145 MMOL/L Potassium Level 3.7 3.6-5.0 MMOL/L Chloride Level 94 L 98-107 MMOL/L Carbon Dioxide Level 21 21-32 MMOL/L Anion Gap 13 5-14 MMOL/L Blood Urea Nitrogen 4 L 7-18 MG/DL Creatinine 0.73 0.60-1.30 MG/DL Estimat Glomerular Filtration Rate > 60 BUN/Creatinine Ratio 5 Glucose Level 162 H 70-105 MG/DL Calcium Level 9.4 8.5-10.1 MG/DL Corrected Calcium 9.1 8.5-10.1 MG/DL Total Bilirubin 1.0 0.1-1.0 MG/DL Aspartate Amino Transf (AST/SGOT) 13 5-34 U/L Alanine Aminotransferase (ALT/SGPT) 15 0-55 U/L Alkaline Phosphatase 90 40-136 U/L Total Protein 7.7 6.4-8.2 GM/DL Albumin 4.4 3.2-4.5 GM/DL Amylase Level 15 L 25-125 U/L Lipase 14 8-78 U/L Serum Alcohol < 10 <10 MG/DL Urine Color YELLOW Urine Clarity CLEAR Urine pH 7.0 5-9 Urine Specific [place] 1.010 L 1.016-1.022 Urine Protein 1+ H NEGATIVE Urine Glucose (UA) NEGATIVE NEGATIVE Urine Ketones 1+ H NEGATIVE Urine Nitrite NEGATIVE NEGATIVE Urine Bilirubin NEGATIVE NEGATIVE Urine Urobilinogen 0.2 < = 1.0 MG/DL Urine Leukocyte Esterase NEGATIVE NEGATIVE Urine RBC (Auto) TRACE-I NEGATIVE Urine RBC 0-2 /HPF Urine WBC NONE /HPF Urine Squamous Epithelial Cells 0-2 /HPF Urine Crystals NONE /LPF Urine Bacteria NEGATIVE /HPF Urine Casts NONE /LPF Urine Mucus NEGATIVE /LPF Urine Culture Indicated NO Urine Opiates Screen NEGATIVE NEGATIVE Urine Oxycodone Screen NEGATIVE NEGATIVE Urine Methadone Screen NEGATIVE NEGATIVE Urine Propoxyphene Screen NEGATIVE NEGATIVE Urine Barbiturates Screen NEGATIVE NEGATIVE Ur Tricyclic Antidepressants Screen POSITIVE H NEGATIVE Urine Phencyclidine Screen NEGATIVE NEGATIVE Urine Amphetamines Screen NEGATIVE NEGATIVE Urine Methamphetamines Screen NEGATIVE NEGATIVE Urine Benzodiazepines Screen NEGATIVE NEGATIVE Urine Cocaine Screen NEGATIVE NEGATIVE Urine Cannabinoids Screen POSITIVE H NEGATIVE My Orders Orders - IYER,BISMARK L DO Comprehensive Metabolic Panel (09/09/19 08:27) Lipase (09/09/19 08:27) Amylase (09/09/19 08:27) Ua Culture If Indicated (09/09/19 08:27) Ed Iv/Invasive Line Start (09/09/19 08:27) Acute Abd Series (09/09/19 08:27) Cbc With Automated Diff (09/09/19 08:27) Ketorolac Injection (Toradol Injection) (09/09/19 08:30) Alcohol (09/09/19 08:27) Drug Screen Stat (Urine) (09/09/19 08:27) Protime With Inr (09/09/19 08:27) Ns Iv 1000 Ml (Sodium Chloride 0.9%) (09/09/19 08:28) Famotidine Injection (Pepcid Injection) (09/09/19 08:28) Ct Abdomen/Pelvis W (09/09/19 09:32) Iohexol Injection (Omnipaque 350 Mg/Ml 1 (09/09/19 09:45) Received Contrast (Hold Metformin- Contr (09/09/19 09:45) Ns (Ivpb) (Sodium Chloride 0.9% Ivpb Bag (09/09/19 09:45) Medications Given in ED Current Medications Medications Dose Ordered Sig/Alfredo Route Start Time Stop Time Status Last Admin Dose Admin Iohexol 100 ml ONCE ONCE IV 09/09/19 09:45 09/09/19 09:46 DC 09/09/19 10:01 100 ML Ketorolac Tromethamine 15 mg ONCE ONCE IVP 09/09/19 08:30 09/09/19 08:31 DC 09/09/19 08:44 15 MG Sodium Chloride 100 ml ONCE ONCE IV 09/09/19 09:45 09/09/19 09:46 DC 09/09/19 10:01 80 ML Vital Signs/I&O 09/09/19 08:22 Temp 36.8 Pulse 107 Resp 18 B/P (MAP) 164/113 (130) Pulse Ox 99 O2 Delivery Room Air Progress Progress Note : Time: 10:40 Progress Note Patient with no significant acute findings on labs or CT. Patient with chronic pancreatitis with minimal worsening on CT. Patient has a pain contract with [facility] and he filled his hydrocodone's yesterday. Patient admits to wanting a little bit more something for pain. I discussed with him that I will not give anything else. Patient also admits to drinking daily. I had a discussion with him about the need to quit and worsening of pancreatitis without all. Patient was sleeping comfortably while here in the ER. I went to his room 3 times and had awake him. He shows no signs of significant discomfort. Patient to be discharged home in stable condition. Diagnostic Imaging Diagonstic Imaging: Xray, CT Comments [place] NAME: JAVIER HENLEY JR [facility] REC#: [id number] PT STATUS: REG ER : 1975 PHYSICIAN: BISMARK IYER DO ADMIT DATE: 09/09/19/ER Draft Date of Exam:09/09/19 ACUTE ABD SERIES INDICATION: Left lower quadrant abdominal pain with nausea, vomiting and diarrhea. Time of exam 9:09 AM Comparison is made with prior chest from 01/26/2019. The heart size is stable. There appear to be multiple left-sided healed or healing rib fractures. Lungs appear to be clear. No effusion or pneumothorax is seen. No free air is identified. The bowel gas pattern is nonobstructed. No pathologic calcifications are seen. IMPRESSION: No acute abnormality is detected. Dictated on workstation # [id number] [facility] [place] NAME: JAVIER HENLEY [facility] REC#: [id number] PT STATUS: REG ER : 1975 PHYSICIAN: BISMARK IYER DO ADMIT DATE: 09/09/19/ER Draft Date of Exam:09/09/19 CT ABDOMEN/PELVIS W PROCEDURE: CT abdomen and pelvis with contrast. TECHNIQUE: Multiple contiguous axial images were obtained through the abdomen and pelvis after administration of intravenous contrast. Auto Exposure Controls were utilized during the CT exam to meet ALARA standards for radiation dose reduction. INDICATION: Left mid abdominal pain. Correlation is made with prior CT from 03/28/2019. The lung bases are clear. Multiple healed lower left rib fractures are again noted. No discrete liver mass is detected. The gallbladder is unremarkable. There is no biliary ductal dilatation. Pancreas does show some fatty atrophic changes. There is some minimal inflammatory changes adjacent to the pancreatic tail. Some minimal underlying pancreatitis cannot be entirely excluded. No organized fluid collection is identified. The spleen is unremarkable. Adrenal glands and kidneys are unremarkable. Aorta is calcified but not aneurysmal. No central retroperitoneal or mesenteric lymphadenopathy is seen. Small and large bowel loops are normal caliber. Appendix is visualized in right lower quadrant. No obstruction is seen. There is no free fluid or fluid collection identified. The bladder is unremarkable. No pelvic lymphadenopathy is seen. IMPRESSION: 1. Mild inflammatory changes are identified in the region of the pancreatic tail, concerning for pancreatitis. This has increased in this region since the CT from 03/28/2019. No pseudocyst formation is seen. 2. No bowel obstruction is identified. Reviewed: Reviewed by Me, Reviewed/Discussed Departure Impression Primary Impression: Chronic alcoholic pancreatitis Disposition: HOME, SELF-CARE Condition: Stable Departure-Patient Inst. Referrals: YVES BLEVINS MD (PCP/Family) Primary Care Physician Patient Instructions: Chronic Pancreatitis (DC), Alcohol Use - When Is Drinking a Problem? Add. Discharge Instructions: Emergency department focuses on treating and ruling out life-threatening diseases. Whenever possible, a diagnosis is given. However, most patients are given an impression based on their history, physical exam, and workup during your brief time in the ER. Information about probable diagnosis and other educational material has been provided. Please take the time to read and understand this information. It is very important that you follow up with a physician as discussed during the visit today. Failure to adhere to your follow-up instructions may lead to severe disability, injury, or so please make sure to keep your appointments or obtain one as requested. Please keep in mind the emergency department is not designed to your primary care or "family doctor" and nonurgent issues are best evaluated by an outpatient physician All discharge instructions reviewed with patient and/or family. Voiced understanding. BISMARK IYER DO September 09, 2019 08:32
--- OUTSIDE RECORDS SUMMARY | 2019-09-09 08:32 | XMS REPORT ---
Author Author Sahil JAMESON NA [facility] Organization [facility] Address [address] [place] [address] Care Team Providers Care Curtain Mender Name Role Phone MICHAEL CEDILLOMELIZA Unavailable PROBLEMS Type Condition ICD9-CM Code EDD11-XW Code Onset Dates Condition S tatus SNOMED Code Problem Restless legs syndrome G25.81 Active 546778323 Problem GERD (gastroesophageal reflux disease) K21.9 Active 340002204 Problem Sinusitis, unspecified chronicity, unspecified location J32.9 Active 01323224 Problem COPD (chronic obstructive pulmonary disease) J44.9 Active 45511160 Problem Ulcer of right foot, unspecified ulcer stage L97.5 19 Active 99915755 Problem DM neuro manif type II E11.49 Active 72544015 Problem Constipation, unspecified constipation type K59.00 Active 28306698 Problem Schizoaffective disorder, depressive type F25.1 Active 41396248 Problem PAD (peripheral artery disease) I73.9 Active 067134869 Problem Chronic hepatitis C without hepatic coma B18.2 Active 814828932 Problem Polyneuropathy G62.9 Active 73875 000 Problem Alcohol use disorder, severe, dependence F10.20 Active 71671088 Problem Methamphetamine use disorder, severe, 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 Active 805684134 Problem Morbid (severe) obesity due to excess calories E66 .01 Active 235600836 Problem Neuropathy G62.9 Active 535860079 Problem ED (erectile dysfunction) N52.9 Acti ve 407068631 Problem 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 Active 922349666 Problem Substance abuse F19.10 Active 6621 4007 Problem Personality disorder F60.9 Active 72265546 Problem HTN (hypertension) I10 Active 3 4564373 Problem Cannabis use disorder, severe, dependence F12.20 Active 51796056 Problem Ulcer of toe of right foot, unspecified ulcer stage L97.519 Active 016628460 Problem Amputated toe of right foot S98.131A Ac tive 836505563 Problem Hammer toe, unspecified laterality M20.40 Active 434109138 ALLERGIES No Information ENCOUNTERS Encounter Location Date Diagnosis [facility] [address] [id number] [address] [place] [phone] 17 Aug, 2019 [facility] [address] [id number] [address] [place] [phone] 24 Jul, 2019 [facility] [address] [id number] [address] [place] [phone] 23 Jul, 2019 [facility] [address] [id number] [address] [place] [phone] 18 Jul, 2019 [facility] [address] [facility] [id number] [address] [place] [id number] 10 Jul, 2019 [facility] [address] [facility] [id number] [address] [place] [id number] 10 Jul, 2019 [facility] [address] [facility] [id number] [address] [place] [phone] 09 Jul, 2019 [facility] [address] [facility] [id number] [address] [place] [phone] 09 Jul, 2019 [facility] [address] [facility] [id number] [address] [place] [phone] 06 Jul, 2019 [facility] [address] [facility] [id number] [address] [place] [phone] Jul, [facility] [address] [facility] [id number] [address] [place] [phone] 04 Jul, 2019 Polyneuropathy G62.9 [facility] [address] [facility] [id number] [address] [place] [phone] Jun, 2019 [facility] [address] [facility] [id number] [address] [place] [phone] Jun, [facility] [address] [facility] [id number] [address] [place] [phone] Jun, [facility] [address] [id number] [address] [place] [phone] Jun, [facility] [address] [facility] [id number] [address] [place] [phone] Jun, [facility] [address] [facility] [id number] [address] [place] [phone] Jun, Polyneuropathy G62.9 [facility] [address] [facility] [id number] [address] [place] [phone] May, [facility] [address] [facility] [id number] [address] [place] [phone] May, Foot callus L84 [facility] [address] [facility] [id number] [address] [place] [phone] May, [facility] [address] [facility] [id number] [address] [place] [phone] May, [facility] [address] [facility] [id number] [address] [place] [phone] May, [facility] [address] [facility] [id number] [address] [place] [phone] May, Polyneuropathy G62.9 ; HTN ( hypertension) I10 ; Schizoaffective disorder, depressive type F25.1 ; PAD (peripheral artery disease) I73.9 ; COPD (chronic obstructive pulmonary disease) J44.9 ; Amputated toe of right foot S98.131A ; Methamphetamine use disorder, severe, 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 and Type 2 diabetes mellitus with other diabetic neurological complication E11.49 [facility] [address] [facility] [id number] [address] [place] [phone] May, [facility] [address] [facility] [id number] [address] [place] [phone] May, [facility] [address] [facility] [id number] [address] [place] [phone] May, [facility] [address] [facility] [id number] [address] [place] [phone] May, [facility] [address] [id number] [address] [place] [phone] May, [facility] [address] [facility] [id number] [address] [place] [phone] May, Chronic hepatitis C without hepatic coma B18.2 and HTN (hypertension) I10 [facility] [address] [facility] [id number] [address] [place] [phone] May, Neuropathy G62.9 [facility] [address] [facility] [id number] [address] [place] [phone] Apr, [id number] [place] [phone] Apr, [facility] [address] [facility] [id number] [address] [place] [phone] Apr, [facility] [address] [facility] [id number] [address] [place] [phone] Apr, [facility] [address] [facility] [id number] [address] [place] [phone] Apr, [facility] [address] [facility] [id number] [address] [place] [phone] Apr, [facility] [address] [facility] [id number] [address] [place] [phone] Apr, [facility] [address] [facility] [id number] [address] [place] [phone] Apr, Ulcer of right foot, unspeci fied ulcer stage L97.519 ; Type 2 diabetes mellitus with other diabetic neurological complication E11.49 ; Onychomycosis B35.1 and Hammer toe, unspecified laterality M20.40 [facility] [address] [facility] [id number] [address] [place] [phone] Apr, [facility] [address] [facility] [id number] [address] [place] [phone] Apr, HTN (hypertension) I10 and U lcer of toe of right foot, unspecified ulcer stage L97.519 [facility] [address] [place] [id number] [address] [place] [phone] Apr, [facility] [address] [facility] [id number] [address] [place] [phone] Apr, Schizoaffective disorder, de pressive type F25.1 ; Other supervisor long goods (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.899 and Stimulant use disorder F15.90 [facility] [address] [place] [id number] [address] [place] [phone] Apr, [place] [address] [place] [id number] [place] [phone] Apr, [place] [address] [phone] Apr, [place] [address] [place] [id number] [address] [place] [phone] Mar, Pre-ulcerative calluses L84 [place] [address] [place] [id number] [address] [place] [phone] Mar, HTN (hypertension) I10 ; DM neuro manif type II E11.49 ; Morbid (severe) obesity due to excess calories E66.01 and Polyneuropathy G62.9 [facility] [address] [place] [id number] [address] [place] [phone] Mar, [facility] [address] [place] [id number] [address] [place] [phone] Mar, [facility] [address] [place] [id number] [address] [place] [phone] Mar, Onychomycosis B35.1 ; Callus of foot L84 and Hammer toe, unspecified laterality M20.40 [facility] [address] [place] [id number] [address] [place] [phone] Mar, Neuropathy G62.9 [facility] [address] [id number] [address] [place] [phone] Mar, [facility] [address] [facility] [id number] [address] [place] [phone] Mar, [facility] [address] [id number] [address] [place] [id number] 14 Mar, 2019 [facility] [address] [facility] [id number] [address] [place] [phone] Mar, Constipation, unspecified co nstipation type K59.00 [facility] [address] [id number] [address] [place] [phone] Mar, [facility] [address] [facility] [id number] [address] [place] [phone] Mar, [facility] [address] [facility] [id number] [address] [place] [phone] Mar, Chronic hepatitis C without hepatic coma B18.2 ; High risk medication use Z79.899 and Encounter for immunization Z23 [facility] [address] [facility] [id number] [address] [place] [phone] Mar, [facility] [address] [facility] [id number] [address] [place] [phone] Mar, Neuropathy G62.9 [facility] [address] [facility] [id number] [address] [place] [phone] Mar, High risk sexual behavior, u nspecified type Z72.51 [facility] [address] [id number] [address] [place] [phone] Feb, Callus of foot L84 [facility] [address] [facility] [id number] [address] [place] [phone] Feb, Callus of foot L84 [facility] [address] [facility] [id number] [address] [place] [phone] Feb, [facility] [address] [facility] [id number] [address] [place] [phone] Feb, [facility] [address] [id number] [place] [address], [place] [phone] Feb, Methamphetamine use disorder, severe, de pendence F15.20 ; Alcohol use disorder, severe, dependence F10.20 and Cannabis use disorder, severe, dependence F12.20 [facility] [address] [id number] [address] [place] [phone] Feb, Chronic hepatitis C without hepatic coma B18.2 [facility] [address] [id number] [place] [phone] Feb, Methamphetamine use disorder, severe, de pendence F15.20 ; Alcohol use disorder, severe, dependence F10.20 and Cannabis use disorder, severe, dependence F12.20 [facility] [address] [id number] [address] [place] [phone] Feb, [facility] [address] [id number] [address] [place] [phone] Feb, Chronic hepatitis C without hepatic coma B18.2 [facility] [address] [id number] [place] [address], [place] [phone] Feb, Methamphetamine use disorder, severe, de pendence F15.20 ; Alcohol use disorder, severe, dependence F10.20 and Cannabis use disorder, severe, dependence F12.20 [facility] [address] [id number] [address] [place] [phone] Feb, [facility] [address] [id number] [address] [place] [phone] Feb, [facility] [address] [id number] [address] [place] [phone] Feb, [facility] [address] [id number] [address] [place], [place] [phone] Feb, [facility] [address] [facility] [id number] [address] [place] [phone] Feb, Neuropathy G62.9 [facility] [address] [facility] [id number] [address] [place] [id number] Feb, Schizoaffective disorder, de pressive type F25.1 ; Other custodial (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.899 and Stimulant use disorder F15.90 [place] [address] [place] [id number] [address] [place] [phone] Feb, Onychomycosis B35.1 and Neur opathy G62.9 [place] [address] [facility] [id number] [address] [place] [phone] Feb, [place] [address] [facility] [id number] [address] [place] [phone] Feb, [place] [address] [place] [id number] [address] [place] [phone] Feb, [facility] [address] [place] [id number] [place] [phone] Feb, Methamphetamine use disorder, severe, de pendence F15.20 ; Alcohol use disorder, severe, dependence F10.20 and Cannabis use disorder, severe, dependence F12.20 [place] [address] [place] [id number] [place] [phone] Feb, Chronic hepatitis C without hepatic coma B18.2 and Encounter for immunization Z23 [facility] [address] [place] [id number] [address] [place] [phone] Jan, [place] [address] [facility] [id number] [address] [place] [phone] Jan, [place] [address] [facility] [id number] [address] [place] [phone] Jan, [facility] [address] [place] [id number] [place] [phone] Jan, Methamphetamine use disorder, severe, de pendence F15.20 ; Alcohol use disorder, severe, dependence F10.20 and Cannabis use disorder, severe, dependence F12.20 [place] [address] [place] [id number] [address] [place] [phone] 24 Jan, 2019 [facility] [address] [id number] [address] [place] [phone] 23 Jan, 2019 [facility] [address] [id number] [address] [place] [phone] 23 Jan, 2019 History of amputation Z89.9 [facility] [address] [id number] [address] [place] [phone] 21 Jan, 2019 [facility] [address] [id number] [address] [place] [phone] 20 Jan, 2019 [facility] [address] [id number] [address] [place] [phone] 20 Jan, 2019 [facility] [address] [id number] [address] [place] [phone] 19 Jan, 2019 [facility] [address] [id number] [address] [place] [phone] 18 Jan, 2019 [facility] [address] [id number] [address] [place] [phone] 18 Jan, 2019 [facility] [address] [id number] [address] [place] [phone] 18 Jan, 2019 [facility] [address] [id number] [address] [place] [phone] 18 Jan, 2019 [facility] [address] [id number] [place] [phone] 18 Jan, 2019 Methamphetamine use disorder, severe, de pendence F15.20 ; Alcohol use disorder, severe, dependence F10.20 and Cannabis use disorder, severe, dependence F12.20 [facility] [address] [id number] [address] [place] [phone] 18 Jan, 2019 [facility] [address] [id number] [address] [place] [id number] 16 Jan, 2019 [facility] [address] [id number] [address] [place] [phone] Jan, [facility] [address] [facility] [id number] [place] [address], [place] [address] Jan, Methamphetamine use disorder, severe, de pendence F15.20 ; Alcohol use disorder, severe, dependence F10.20 and Cannabis use disorder, severe, dependence F12.20 [facility] [address] [facility] [id number] [place] [address], [place] [phone] Jan, Methamphetamine use disorder, severe, de pendence F15.20 ; Cannabis use disorder, severe, dependence F12.20 and Alcohol use disorder, severe, dependence F10.20 [facility] [address] [facility] [id number] [address] [place] [phone] Jan, Chronic hepatitis C without hepatic coma B18.2 [facility] [address] [facility] [id number] [address] [place] [phone] Jan, Neuropathy G62.9 [facility] [address] [place] [id number] [address] [place] [phone] Jan, [facility] [address] [facility] [id number] [address] [place] [phone] Jan, [facility] [address] [place] [id number] [address] [place] [phone] Jan, Chronic hepatitis C without hepatic coma B18.2 [facility] [address] [place] [id number] [address] [place] [phone] Dec, Right foot pain M79.671 [facility] [address] [place] [id number] [address] [place] [phone] Dec, Schizoaffective disorder, de pressive type F25.1 ; Other supervisor long goods (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.899 and Stimulant use disorder F15.90 [facility] [address] [facility] [id number] [address] [place] [phone] Dec, [facility] [address] [facility] [id number] [place] [address], [place] [address] Dec, Methamphetamine use disorder, severe, de pendence F15.20 ; Alcohol use disorder, severe, dependence F10.20 and Cannabis use disorder, severe, dependence F12.20 [facility] [address] [id number] [address] [place] [phone] Dec, [facility] [address] [facility] [id number] [address] [place] [phone] Dec, [facility] [address] [id number] [address] [place] [phone] Dec, Ulcer of toe of right foot, unspecified ulcer stage L97.519 [facility] [address] [facility] [id number] [address] [place] [phone] Dec, [facility] [address] [facility] [id number] [place] [phone] Dec, Methamphetamine use disorder, severe, de pendence F15.20 ; Cannabis use disorder, severe, dependence F12.20 and Alcohol use disorder, severe, dependence F10.20 [facility] [address] [facility] [id number] [address] [place] [phone] Dec, [facility] [address] [facility] [id number] [address] [place] [phone] Dec, Allergic contact dermatitis, unspecified trigger L23.9 and Ankle swelling, unspecified laterality M25.473 [place] [address] [place] [id number] [address] [place] [phone] Dec, [place] [id number] [facility] [id number] [address] [place] [phone] Dec, [facility] [address] [facility] [id number] [place] [phone] Dec, Methamphetamine use disorder, severe, de pendence F15.20 ; Alcohol use disorder, severe, dependence F10.20 and Cannabis use disorder, severe, dependence F12.20 [facility] [address] [facility] [id number] [address] [place] [phone] Dec, [facility] [address] [facility] [id number] [address] [place] [phone] Dec, [facility] [address] [facility] [id number] [address] [place] [phone] Dec, Diarrhea of presumed infecti ous origin R19.7 ; Chronic hepatitis C without hepatic coma B18.2 and Nail fungus B35.1 [facility] [address] [facility] [id number] [address] [place] [phone] Dec, Neuropathy G62.9 [facility] [address] [facility] [id number] [address] [place] [id number] Dec, [facility] [address] [facility] [id number] [address] [place] [id number] Nov, Schizoaffective disorder, de pressive type F25.1 ; Other supervisor long goods (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.899 and Stimulant use disorder F15.90 [facility] [address] [facility] [id number] [address] [place] [phone] Nov, [facility] [address] [facility] [id number] [place] [id number] Nov, Substance abuse F19.10 [facility] [address] [facility] [id number] [address] [place] [id number] Nov, [facility] [address] [facility] [id number] [address] [place] [phone] Nov, Chronic hepatitis C without hepatic coma B18.2 [facility] [address] [facility] [id number] [address] [place] [id number] Nov, [facility] [address] [facility] [id number] [address] [place] [phone] Nov, Fatigue, unspecified type R5 3.83 [facility] [address] [facility] [id number] [address] [place] [id number] Nov, Schizoaffective disorder, de pressive type F25.1 ; Other custodial (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.899 and Stimulant use disorder F15.90 [facility] [address] [id number] [address] [place] [phone] Nov, [facility] [address] [facility] [id number] [address] [place] [phone] Nov, [facility] [address] [id number] [address] [place] [phone] Nov, [facility] [address] [facility] [id number] [address] [place] [phone] Oct, Neuropathy G62.9 [facility] [address] [facility] [id number] [address] [place] [id number] Oct, Prediabetes R73.03 ; 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.899 and Chronic hepatitis C without hepatic coma B18.2 [facility] [address] [facility] [id number] [address] [place] [id number] Oct, Schizoaffective disorder, de pressive type F25.1 and Other custodial (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.899 [facility] [address] [facility] [id number] [place] [id number] Oct, [facility] [address] [facility] [id number] [address] [place] [id number] 14 Oct, 2018 Sore throat J02.9 and Acute non-recurrent frontal sinusitis J01.10 [facility] [address] [facility] [id number] [address] [place] [phone] Oct, [facility] [address] [facility] [id number] [address] [place] [phone] 07 Oct, 2018 Acute URI J06.9 [facility] [address] [facility] [id number] [address] [place] [phone] Oct, [facility] [address] [facility] [id number] [address] [place] [id number] Oct, Schizoaffective disorder, de pressive type F25.1 [facility] [address] [facility] [id number] [address] [place] [id number] Oct, [facility] [address] [facility] [id number] [address] [place] [phone] Oct, Substance abuse F19.10 [facility] [address] [facility] [id number] [address] [place] [phone] Oct, Bronchitis J40 [id number] [address] September, Back pain M54.9 [facility] [address] [facility] [id number] [address] [place] [id number] September, Schizoaffective disorder, de pressive type F25.1 [facility] [address] [facility] [id number] [address] [place] [id number] September, [address] [id number] [address] September, Substance abuse F19.10 [facility] [address] [facility] [id number] [address] [place] [id number] September, [facility] [address] [facility] [id number] [address] [place] [phone] September, Schizoaffective disorder, de pressive type F25.1 [facility] [address] [facility] [id number] [address] [place] [id number] September, Substance abuse F19.10 [facility] [address] [facility] [id number] [address] [place] [phone] September, [facility] [address] [facility] [id number] [address] [place] [id number] September, Substance abuse F19.10 [facility] [address] [facility] [id number] [address] [place] [id number] September, Encounter for Medicare annua l wellness exam Z00.00 ; Ulcer of right foot, unspecified ulcer stage L97.519 ; Type 2 diabetes mellitus with other diabetic neurological complication E11.49 ; COPD (chronic obstructive pulmonary disease) J44.9 ; PAD (peripheral artery disease) I73.9 ; Schizoaffective disorder, depressive type F25.1 and Routine adult health maintenance Z00.00 [facility] [address] [id number] [address] [place] [id number] September, Schizoaffective disorder, de pressive type F25.1 [facility] [address] [id number] [address] [place] [id number] September, [facility] [address] [id number] [address] [place] [id number] September, [facility] [address] [id number] [address] [place] [id number] September, Schizoaffective disorder, de pressive type F25.1 [facility] [address] [id number] [address] [place] [id number] Aug, [facility] [address] [id number] [address] [place] [id number] Aug, Rib pain on left side R07.81 and Closed fracture of multiple ribs of left side with routine healing, subsequent encounter S22.42XD [facility] [address] [id number] [address] [place] [id number] Aug, [facility] [address] [id number] [address] [place] [phone] Aug, [facility] [address] [id number] [address] [place] [phone] Jul, [facility] [address] [id number] [address] [place] [phone] Jul, [facility] [address] [facility] [id number] [address] [place] [id number] Jul, [facility] [address] [facility] [id number] [address] [place] [id number] Jul, Back pain M54.9 [facility] [address] [id number] [address] [place] [phone] Jul, Polyneuropathy in diseases c lassified elsewhere G63 [facility] [address] [id number] [address] [place] [id number] Jul, Constipation, unspecified co nstipation type K59.00 and Burn T30.0 [facility] [address] [id number] [address] [place] [id number] Jul, [facility] [address] [id number] [address] [place] [phone] Jun, 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 [facility] [address] [id number] [address] [place] [phone] Jun, Back pain M54.9 [facility] [address] [facility] [id number] [address] [place] [phone] 21 Jun, 2018 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 [facility] [address] [id number] [address] [place] [id number] 20 Jun, 2018 [facility] [address] [facility] [id number] [address] [place] [id number] Jun, [facility] [address] [id number] [address] [place] [phone] Jun, [facility] [address] [facility] [id number] [address] [place] [id number] May, [facility] [address] [id number] [address] [place] [address] May, Back pain M54.9 [facility] [address] [facility] [id number] [address] [place] [phone] May, [facility] [address] [facility] [id number] [address] [place] [id number] May, 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 ; Chronic hepatitis C without hepatic coma B18.2 and HTN (hypertension) I10 [facility] [address] [id number] [address] [place] [phone] Apr, Back pain M54.9 [facility] [address] [id number] [address] [place] [phone] Apr, [facility] [address] [id number] [address] [place] [id number] Apr, Polyneuropathy in diseases c lassified elsewhere G63 [facility] [address] [id number] [address] [place] [id number] Mar, Back pain M54.9 [facility] [address] [id number] [address] [place] [id number] Mar, [facility] [address] [id number] [address] [place] [phone] Mar, Back pain M54.9 [facility] [address] [id number] [address] [place] [phone] Mar, [facility] [address] [id number] [address] [place] [phone] Mar, [facility] [address] [id number] [address] [place] [phone] Mar, Polyneuropathy in diseases c lassified elsewhere G63 [facility] [address] [id number] [address] [place] [address] Feb, Back pain M54.9 [facility] [address] [id number] [address] [place] [id number] Jan, Back pain M54.9 [facility] [address] [id number] [address] [place] [id number] Jan, [facility] [address] [id number] [address] [place] [phone] Jan, [facility] [address] [id number] [address] [place] [phone] Dec, Back pain M54.9 [facility] [address] [facility] [id number] [address] [place] [phone] Dec, [facility] [address] [facility] [id number] [address] [place] [phone] Dec, Upper respiratory tract infe ction, unspecified type J06.9 [facility] [address] [facility] [id number] [address] [place] [id number] Dec, [facility] [address] [facility] [id number] [address] [place] [id number] Dec, Acute suppurative otitis med ia of right ear without spontaneous rupture of tympanic membrane, recurrence not specified H66.001 and Acute nasopharyngitis J00 [facility] [address] [facility] [id number] [address] [place] [id number] Dec, Back pain M54.9 [facility] [address] [facility] [id number] [address] [place] [id number] Dec, Foot infection L08.9 and 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 [facility] [address] [facility] [id number] [address] [place] [id number] Nov, Cellulitis of toe of right f oot L03.031 ; Polyneuropathy in diseases classified elsewhere G63 and HTN (hypertension) I10 [facility] [address] [facility] [id number] [address] [place] [id number] Nov, [facility] [address] [facility] [id number] [address] [place] [phone] Nov, [facility] [address] [facility] [id number] [address] [place] [phone] Nov, Back pain M54.9 [facility] [address] [facility] [id number] [address] [place] [phone] Nov, Shortness of breath R06.02 [facility] [address] [id number] [address] [place] [phone] Nov, [facility] [address] [id number] [address] [place] [id number] Oct, [facility] [address] [id number] [address] [place] [phone] Oct, [facility] [address] [id number] [address] [place] [phone] Oct, [facility] [address] [id number] [address] [place] [phone] Oct, [facility] [address] [id number] [address] [place] [id number] Oct, [facility] [address] [id number] [address] [place] [id number] Oct, Back pain M54.9 [facility] [address] [id number] [address] [place] [phone] Oct, Back pain M54.9 [facility] [address] [id number] [address] [place] [phone] Oct, [facility] [address] [id number] [address] [place] [phone] September, [facility] [address] [id number] [address] [place] [id number] September, [facility] [address] [id number] [address] [place] [phone] September, [facility] [address] [id number] [address] [place] [phone] September, 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 and Hypotension, unspecified hypotension type I95.9 [facility] [address] [id number] [address] [place] [phone] September, [facility] [address] [id number] [address] [place] [phone] September, [facility] [address] [facility] [id number] [address] [place] [phone] September, Back pain M54.9 [facility] [address] [facility] [id number] [address] [place] [phone] Aug, [facility] [address] [facility] [id number] [address] [place] [id number] Aug, Acute cystitis with hematuri a N30.01 ; Ulcer of right foot, unspecified ulcer stage L97.519 ; HTN (hypertension) I10 ; COPD (chronic obstructive pulmonary disease) J44.9 and DM neuro manif type II E11.49 [facility] [address] [facility] [id number] [address] [place] [address] Aug, Back pain M54.9 [facility] [address] [facility] [id number] [address] [place] [phone] Jul, [facility] [address] [facility] [id number] [address] [place] [id number] Jul, Back pain M54.9 [facility] [address] [facility] [id number] [address] [place] [id number] Jul, [facility] [address] [facility] [id number] [address] [place] [id number] Jul, DM neuro manif type II E11.4 9 and Ulcer of right foot, unspecified ulcer stage L97.519 [facility] [address] [facility] [id number] [address] [place] [phone] Jun, [facility] [address] [facility] [id number] [address] [place] [id number] Jun, [facility] [address] [facility] [id number] [address] [place] [id number] May, 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 ; GERD (gastroesophageal reflux disease) K21.9 and PAD (peripheral artery disease) I73.9 [facility] [address] [id number] [address] [place] [phone] May, Decubital ulcer L89.90 ; Nathalia betes E11.9 and GERD (gastroesophageal reflux disease) K21.9 [facility] [address] [id number] [address] [place] [id number] May, [facility] [address] [id number] [address] [place] [id number] Apr, [facility] [address] [id number] [address] [place] [phone] Mar, [facility] [address] [id number] [address] [place] [phone] Mar, [facility] [address] [id number] [address] [place] [phone] Feb, [facility] [address] [id number] [address] [place] [phone] Feb, [facility] [address] [id number] [address] [place] [phone] Jan, [facility] [address] [id number] [address] [place] [id number] Jan, HTN (hypertension) I10 [facility] [address] [id number] [address] [place] [id number] Jan, [facility] [address] [id number] [address] [place] [id number] Dec, Back pain M54.9 [facility] [address] [id number] [address] [place] [id number] Dec, Back pain M54.9 [facility] [address] [facility] [id number] [address] [place] [id number] Dec, Encounter for immunization Z 23 and Puncture wound of right foot, initial encounter S91.331A [facility] [address] [id number] [address] [place] [phone] Dec, [facility] [address] [facility] [id number] [address] [place] [phone] Nov, [facility] [address] [facility] [id number] [address] [place] [id number] Nov, COPD (chronic obstructive pu lmonary disease) J44.9 [facility] [address] [facility] [id number] [address] [place] [id number] Nov, [facility] [address] [facility] [id number] [address] [place] [phone] Oct, [facility] [address] [facility] [id number] [address] [place] [id number] Oct, [facility] [address] [place] [id number] [place] [address] September, Onychomycosis B35.1 and DM n euro manif type II E11.49 [facility] [address] [facility] [id number] [address] [place] [id number] September, [facility] [address] [facility] [id number] [address] [place] [phone] Aug, [facility] [address] [facility] [id number] [address] [place] [phone] Jul, Sinusitis, unspecified chron icity, unspecified location J32.9 and Cough R05 [facility] [address] [facility] [id number] [address] [place] [id number] Jul, Back pain M54.9 [facility] [address] [facility] [id number] [address] [place] [id number] 14 Jun, 2016 Back pain M54.9 [facility] [address] [place] [id number] [address] [place] [id number] 06 Jun, 2016 COPD (chronic obstructive pu lmonary disease) J44.9 [facility] [address] [place] [id number] [address] [place] [phone] May, [facility] [address] [facility] [id number] [address] [place] [phone] May, [facility] [address] [facility] [id number] [address] [place] [phone] May, Back pain M54.9 [facility] [address] [id number] [address] [place] [phone] 16 May, 2016 [facility] [address] [facility] [id number] [address] [place] [phone] May, [facility] [address] [facility] [id number] [address] [place] [phone] May, Diabetes E11.9 [facility] [address] [facility] [id number] [address] [place] [phone] 11 May, 2016 Diabetes E11.9 ; GERD [...] for hepatitis C screening test Z11.59 [facility] [address] [facility] [id number] [address] [place] [phone] May, HTN (hypertension) I10 [facility] [address] [facility] [id number] [address] [place] [phone] Apr, [facility] [address] [facility] [id number] [address] [place] [phone] Apr, [facility] [address] [facility] [id number] [address] [place] [phone] Apr, [facility] [address] [facility] [id number] [address] [place] [id number] Apr, [facility] [address] [id number] [address] [place] [phone] Apr, [facility] [address] [id number] [address] [place] [phone] Mar, [facility] [address] [id number] [address] [place] [phone] Mar, [facility] [address] [id number] [address] [place] [phone] Mar, [facility] [address] [id number] [address] [place] [phone] Mar, [facility] [address] [id number] [address] [place] [phone] Mar, Dental examination Z01.20 [facility] [address] [facility] [id number] [address] [place] [phone] Feb, [facility] [address] [facility] [id number] [place] [phone] Feb, [facility] [address] [facility] [id number] [address] [place] [phone] Feb, Back pain M54.9 [facility] [address] [facility] [id number] [address] [place] [phone] Jan, [facility] [address] [facility] [id number] [address] [place] [phone] Jan, [facility] [address] [facility] [id number] [place] [phone] Dec, Diabetes E11.9 ; GERD (gastr oesophageal reflux disease) K21.9 ; ED (erectile dysfunction) N52.9 ; HTN (hypertension) I10 ; Insomnia G47.00 ; COPD (chronic obstructive pulmonary disease) J44.9 ; Neuropathy G62.9 and Bipolar depression F31.30 [facility] [address] [facility] [id number] [address] [place] [phone] Dec, 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 and Onychomycosis B35.1 [facility] [address] [id number] [address] [place] [address], [place] [phone] Dec, [facility] [address] [id number] [address] [place] [address], [place] [phone] Dec, [facility] [address] [id number] [address] [place] [address], [place] [phone] Dec, [facility] [address] [id number] [address] [place] [address], [place] [phone] Dec, [facility] [address] [id number] [address] [place] [address], [place] [phone] Nov, [facility] [address] [id number] [address] [place] [address], [place] [phone] Nov, [facility] [address] [id number] [address] [place] [address], [place] [phone] Oct, [facility] [address] [id number] [address] [place] [address], [place] [phone] Oct, [facility] [address] [id number] [address] [place] [address], [place] [phone] Oct, Back pain M54.9 [facility] [address] [id number] [address] [place] [phone] Oct, [facility] [address] [id number] [address] [place] [address], [place] [phone] Oct, [facility] [address] [id number] [address] [place] [phone] Oct, [facility] [address] [id number] [address] [place] [phone] Oct, HTN (hypertension) I10 [facility] [address] [id number] [address] [place] [phone] Oct, Back pain M54.9 [facility] [address] [id number] [address] [place] [phone] Oct, Chronic pain syndrome G89.4 [facility] [address] [facility] [id number] [address] [place] [id number] September, Back pain M54.9 [facility] [address] [facility] [id number] [address] [place] [phone] September, HTN (hypertension) I10 [facility] [address] [facility] [id number] [address] [place] [phone] Aug, Porokeratosis Q82.8 ; Onycho mycosis B35.1 and Type 2 diabetes mellitus with other diabetic neurological complication E11.49 [facility] [address] [facility] [id number] [address] [place] [phone] Aug, GERD (gastroesophageal reflu x disease) K21.9 ; Diabetes E11.9 ; HTN (hypertension) I10 ; Insomnia G47.00 ; Restless legs syndrome G25.81 ; COPD (chronic obstructive pulmonary disease) J44.9 ; Back pain M54.9 and Bipolar 1 disorder F31.9 [facility] [address] [facility] [id number] [place] [phone] Aug, [facility] [address] [facility] [id number] [address] [place] [phone] Aug, [facility] [address] [facility] [id number] [address] [place] [phone] Aug, [facility] [address] [facility] [id number] [address] [place] [phone] Aug, [facility] [address] [facility] [id number] [address] [place] [phone] Jul, [facility] [address] [facility] [id number] [address] [place] [phone] Jul, [facility] [address] [facility] [id number] [address] [place] [phone] 30 Jul, 2015 [facility] [address] [facility] [id number] [address] [place] [phone] 16 Jul, 2015 [facility] [address] [facility] [id number] [address] [place] [phone] Jul, [facility] [address] [facility] [id number] [address] [place] [phone] Jul, [facility] [address] [facility] [id number] [address] [place] [phone] Jun, Decubital ulcer L89.90 ; Nathalia betes E11.9 ; Back pain M54.9 ; HTN (hypertension) I10 and COPD (chronic obstructive pulmonary disease) J44.9 [facility] [address] [facility] [id number] [address] [place] [phone] Jun, [facility] [address] [facility] [id number] [address] [place] [phone] Jun, [facility] [address] [facility] [id number] [address] [place] [phone] Jun, [facility] [address] [facility] [id number] [address] [place] [phone] Jun, [facility] [address] [facility] [id number] [address] [place] [phone] Jun, Diabetes E11.9 ; Insomnia G4 7.00 ; Decubital ulcer L89.90 ; GERD (gastroesophageal reflux disease) K21.9 ; Back pain M54.9 ; Superficial fungus infection of skin B36.9 and HTN (hypertension) I10 [id number] [place] [id number] Jun, Dental examination Z01.20 [facility] [address] [facility] [id number] [address] [place] [phone] May, [facility] [address] [facility] [id number] [address] [place] [phone] May, [facility] [address] [facility] [id number] [address] [place] [phone] May, [facility] [address] [id number] 13 May, 2015 Diabetes E11.9 ; HTN (hypert ension) I10 and Decubital ulcer L89.90 [place] [address] [address] 06 May, 2015 HTN (hypertension) I10 ; Dec ubital ulcer L89.90 and Diabetes E11.9 [place] [address] [address] 30 Apr, 2015 Diabetes E11.9 ; GERD (gastr oesophageal reflux disease) K21.9 ; Back pain M54.9 ; HTN (hypertension) I10 ; Restless legs syndrome G25.81 and Decubital ulcer L89.90 [place] [address] [address] 17 Apr, 2015 [place] [address] [address] Apr, Diabetes E11.9 ; HTN (hypert ension) I10 ; Restless legs syndrome G25.81 ; GERD (gastroesophageal reflux disease) K21.9 and COPD (chronic obstructive pulmonary disease) J44.9 [place] [address] [address] Mar, [place] [address] [address] Mar, [place] [address] [address] Mar, Diabetes E11.9 ; Abscess L02 .91 and Restless legs syndrome G25.81 [place] [address] [address] Mar, [place] [address] [address] Feb, GERD (gastroesophageal reflu x disease) K21.9 ; Back pain M54.9 ; ED (erectile dysfunction) N52.9 ; Diabetes E11.9 ; HTN (hypertension) I10 and Insomnia G47.00 [facility] [address] [address] Feb, [facility] [address] [address] Feb, [facility] [address] [address] Jan, [facility] [address] [address] Jan, Diabetes 250.00 ; Nondepende nt cannabis abuse, continuous 305.21 ; Cough 786.2 ; Schizoaffective disorder, unspecified 295.70 ; Sciatica 724.3 ; Other, mixed, or unspecified nondependent drug abuse, unspecified 305.90 ; Chronic pain 338.29 ; GERD (gastroesophageal reflux disease) 530.81 and HTN (hypertension) 401.[address] [address] Jan, [facility] [address] [address] Jan, [address] [address] Jan, Chronic pain associated with significant psychosocial dysfunction 338.4 ; Diabetes mellitus without mention of complication, type I [juvenile type], uncontrolled 250.03 ; Benign essential hypertension 401.1 ; Schizoaffective disorder, unspecified 295.70 ; Wheezing 786.07 ; Ear ache 388.70 ; Cough 786.2 ; Sciatica 724.3 and Foot pain, bilateral 729.5 [place] [address] [address] Dec, [place] [address] [address] Dec, [facility] [address] [address] Dec, [facility] [address] [id number] [address] [place] [phone] Dec, [facility] [address] [id number] [address] [place] [phone] Dec, [facility] [address] [id number] [address] [place] [phone] Nov, Elevated liver enzymes 790.5 [facility] [address] [id number] [address] [place] [phone] Nov, [facility] [address] [id number] [address] [place] [phone] Nov, [facility] [address] [id number] [address] [place] [phone] Nov, [facility] [address] [facility] [id number] [address] [place] [phone] Nov, Benign essential hypertensio n 401.1 ; Diabetes mellitus without mention of complication, type I [juvenile type], uncontrolled 250.03 and Nondependent cannabis abuse, continuous 305.21 [facility] [address] [id number] [address] [place] [phone] Oct, Cellulitis 682.9 and Benign essential hypertension 401.1 [facility] [address] [id number] [address] [place] [phone] Oct, [facility] [address] [id number] [address] [place] [phone] September, [facility] [address] [id number] [address] [place] [phone] September, [facility] [address] [id number] [address] [place] [phone] Aug, [facility] [address] [id number] [address] [place] [phone] Aug, [facility] [address] [id number] [address] [place] [phone] Aug, [facility] [address] [id number] [address] [place] [address], [place] [address] Aug, [facility] [address] [id number] [address] [place] [address], [place] [address] Jul, [facility] [address] [id number] [address] [place] [address], [place] [address] Jul, [facility] [address] [id number] [address] [place] [address], [place] [address] Jul, [facility] [address] [id number] [address] [place] [address], [place] [address] Jul, [facility] [address] [id number] [address] [place] [address], [place] [address] Jul, [facility] [address] [id number] [address] [place] [address], [place] [address] Jul, [facility] [address] [id number] [address] [place] [address], [place] [address] Jun, [facility] [address] [id number] [address] [place] [address], [place] [address] Jun, [facility] [address] [id number] [address] [place] [address], [place] [address] Jun, [facility] [address] [id number] [address] [place] [address], [place] [address] Jun, [facility] [address] [id number] [address] [place] [address], [place] [address] Jun, [facility] [address] [id number] [address] [place] [address], [place] [address] May, [facility] [address] [id number] [address] [place] [address], [place] [address] May, [facility] [address] [id number] [address] [place] [address], [place] [address] May, [facility] [address] [id number] [address] [place] [address], [place] [address] May, [facility] [address] [id number] [address] [place] [address], [place] [address] May, [facility] [address] [id number] [address] [place] [address], [place] [address] May, [facility] [address] [id number] [address] [place] [address], [place] [address] May, [facility] [address] [id number] [address] [place] [address], [place] [address] May, [facility] [address] [id number] [address] [place] [address], [place] [address] Apr, [facility] [address] [id number] [address] [place] [address], [place] [address] Apr, [facility] [address] [id number] [address] [place] [address], [place] [address] Apr, [facility] [address] [id number] [address] [place] [address], [place] [address] Apr, [facility] [address] [id number] [address] [place] [address], [place] [address] Mar, [facility] [address] [id number] [address] [place] [address], [place] [address] Mar, [facility] [address] [id number] [address] [place] [address], [place] [address] Mar, [facility] [address] [id number] [address] [place] [address], [place] [address] Mar, [facility] [address] [id number] [address] [place] [address], [place] [address] Feb, [facility] [address] [id number] [address] [place] [address], [place] [address] Feb, [facility] [address] [id number] [address] [place] [address], [place] [address] Feb, [facility] [address] [id number] [address] [place] [address], [place] [address] Feb, [facility] [address] [id number] [address] [place] [address], [place] [address] Feb, [facility] [address] [id number] [address] [place] [address], [place] [address] Feb, [facility] [address] [id number] [address] [place] [address], [place] [address] Jan, [facility] [address] [id number] [address] [place] [address], [place] [address] Jan, [facility] [address] [id number] [address] [place] [address], [place] [address] Jan, [facility] [address] [id number] [address] [place] [address], [place] [address] Jan, [facility] [address] [id number] [address] [place] [address], [place] [address] Dec, [facility] [address] [id number] [address] [place] [address], [place] [address] Dec, [facility] [address] [id number] [address] [place] [address], [place] [address] Dec, [facility] [address] [id number] [address] [place] [address], [place] [address] Dec, [facility] [address] [id number] [address] [place] [address], [place] [address] Dec, [facility] [address] [id number] [address] [place] [address], [place] [address] Dec, [facility] [address] [id number] [address] [place] [address], [place] [address] Oct, [facility] [address] [id number] [address] [place] [address], [place] [address] Oct, [facility] [address] [id number] [address] [place] [address], [place] [address] September, [facility] [address] [id number] [address] [place] [address], [place] [address] September, [facility] [address] [id number] [address] [place] [address], [place] [address] September, [facility] [address] [id number] [address] [place] [address], [place] [address] September, [facility] [address] [id number] [address] [place] [address], [place] [address] September, [facility] [address] [id number] [address] [place] [address], [place] [address] September, [facility] [address] [id number] [address] [place] [address], [place] [address] Aug, [facility] [address] [id number] [address] [place] [address], [place] [address] Aug, [facility] [address] [id number] [address] [place] [address], [place] [address] Aug, [facility] [address] [id number] [address] [place] [address], [place] [address] Aug, [facility] [address] [id number] [address] [place] [address], [place] [address] Jul, [facility] [address] [id number] [address] [place] [address], [place] [address] Jul, [facility] [address] [id number] [address] [place] [address], [place] [address] Jun, [facility] [address] [id number] [address] [place] [address], [place] [address] Jun, [facility] [address] [id number] [address] [place] [address], [place] [address] May, [facility] [address] [id number] [address] [place] [address], [place] [address] May, [facility] [address] [id number] [address] [place] [address], [place] [address] Jan, [facility] [place] [address] [id number] [address] [place] [address], [place] [address] Dec, [facility] [address] [id number] [address] [place] [address], [place] [address] Jun, [facility] [address] [id number] [address] [place] [address], [place] [address] May, [facility] [address] [id number] [address] [place] [address], [place] [address] Nov, [facility] [address] [id number] [address] [place] [address], [place] [address] September, [facility] [place] [address] [id number] [address] [place] [address], [place] [address] Aug, [facility] [place] [address] [id number] [address] [place] [address], [place] [address] Aug, [facility] [place] [address] [id number] [address] [place] [address], [place] [address] Aug, [facility] [place] [address] [id number] [address] [place] [address], [place] [address] Aug, [facility] [address] [id number] [address] [place] [address], [place] [address] Nov, [facility] [place] [address] [id number] [address] [place] [address], [place] [address] Oct, [facility] [place] [address] [id number] [address] [place] [address], [place] [address] Jul, [facility] [address] [id number] [address] [place] [address], [place] [address] Feb, [facility] [address] [id number] [address] [place] [address], [place] [address] Feb, [facility] [address] [id number] [address] [place] [address], [place] [address] Apr, [facility] [address] [facility] [id number] [address] [place] [phone] Apr, [facility] [address] [facility] [id number] [address] [place] [phone] Feb, [facility] [address] [facility] [id number] [address] [place] [phone] Feb, [facility] [address] [facility] [id number] [address] [place] [phone] Jul, IMMUNIZATIONS No Known Immunizations SOCIAL HISTORY Never Assessed REASON FOR VISIT PLAN OF CARE VITAL SIGNS Height 70 in 2013-06-07 Weight 238.7 lbs 2013-06-07 Temperature 97.1 degrees Fahrenheit 2013-06-07 Heart Rate 72 bpm 2013-06-07 Respiratory Rate 16 2013-06-07 Blood pressure systolic 128 mmHg 2013-06-07 Blood pressure diastolic 80 mmHg 2013-06-07 MEDICATIONS Unknown Medications RESULTS No Results PROCEDURES [...]
--- OUTSIDE RECORDS SUMMARY | 2019-09-09 08:32 | XMS REPORT ---
Author Author Sahil STACY Organization [facility] Address [address] [place] [address] Care Team Providers Care Burnisher Name Role Phone TESHA STACY Unavailable PROBLEMS Type Condition ICD9-CM Code GHV04-PC Code Onset Dates Condition S tatus SNOMED Code Problem Restless legs syndrome G25.81 Active 299095245 Problem GERD (gastroesophageal reflux disease) K21.9 Active 543853445 Problem Sinusitis, unspecified chronicity, unspecified location J32.9 Active 33103268 Problem COPD (chronic obstructive pulmonary disease) J44.9 Active 77886429 Problem Ulcer of right foot, unspecified ulcer stage L97.5 19 Active 88865146 Problem DM neuro manif type II E11.49 Active 15928707 Problem Constipation, unspecified constipation type K59.00 Active 47580022 Problem Schizoaffective disorder, depressive type F25.1 Active 53205486 Problem PAD (peripheral artery disease) I73.9 Active 409130439 Problem Chronic hepatitis C without hepatic coma B18.2 Active 668679825 Problem Polyneuropathy G62.9 Active 17495 000 Problem Alcohol use disorder, severe, dependence F10.20 Active 79753865 Problem Methamphetamine use disorder, severe, 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 Active 723713988 Problem Morbid (severe) obesity due to excess calories E66 .01 Active 785106219 Problem Neuropathy G62.9 Active 298296737 Problem ED (erectile dysfunction) N52.9 Acti ve 814980009 Problem 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 Active 498180254 Problem Substance abuse F19.10 Active 6621 4007 Problem Personality disorder F60.9 Active 42042597 Problem HTN (hypertension) I10 Active 3 5088832 Problem Cannabis use disorder, severe, dependence F12.20 Active 72778959 Problem Ulcer of toe of right foot, unspecified ulcer stage L97.519 Active 000632251 Problem Amputated toe of right foot S98.131A Ac tive 029469403 Problem Hammer toe, unspecified laterality M20.40 Active 125532128 ALLERGIES No Information ENCOUNTERS Encounter Location Date Diagnosis [facility] [address] [facility] [id number] [address] [place] [address] 17 Aug, 2019 [facility] [address] [id number] [facility] [place] [address] 08 Aug, 2019 [facility] [address] [facility] [id number] [address] [place] [phone] Aug, [facility] [address] [id number] [address] [place] [address] Aug, Polyneuropathy G62.9 [facility] [address] [facility] [id number] [address] [place] [phone] 24 Jul, 2019 [facility] [address] [facility] [id number] [address] [place] [address] Jul, [facility] [address] [facility] [id number] [address] [place] [phone] 18 Jul, 2019 [facility] [address] [facility] [id number] [address] [place] [phone] 10 Jul, 2019 [facility] [address] [facility] [id number] [address] [place] [address] 10 Jul, 2019 [facility] [address] [facility] [id number] [address] [place] [phone] 09 Jul, 2019 [facility] [address] [facility] [id number] [address] [place] [phone] 09 Jul, 2019 [facility] [address] [facility] [id number] [address] [place] [address] 06 Jul, 2019 [facility] [address] [facility] [id number] [address] [place] [phone] 04 Jul, 2019 [facility] [address] [facility] [id number] [address] [place] [address] 04 Jul, 2019 Polyneuropathy G62.9 [facility] [address] [facility] [id number] [address] [place] [address] 27 Jun, 2019 [facility] [address] [facility] [id number] [address] [place] [address] Jun, [facility] [address] [facility] [id number] [address] [place] [address] 17 Jun, 2019 [facility] [address] [facility] [id number] [address] [place] [address] Jun, [facility] [address] [facility] [id number] [address] [place] [address] 05 Jun, 2019 [facility] [address] [facility] [id number] [address] [place] [address] 04 Jun, 2019 Polyneuropathy G62.9 [facility] [address] [place] [id number] [address] [place] [phone] May, [facility] [address] [facility] [id number] [address] [place] [address] May, Foot callus L84 [facility] [address] [facility] [id number] [address] [place] [address] May, [facility] [address] [place] [id number] [address] [place] [address] May, [facility] [address] [facility] [id number] [address] [place] [address] May, [facility] [address] [facility] [id number] [address] [place] [address] May, Polyneuropathy G62.9 ; HTN ( hypertension) I10 ; Schizoaffective disorder, depressive type F25.1 ; PAD (peripheral artery disease) I73.9 ; COPD (chronic obstructive pulmonary disease) J44.9 ; Amputated toe of right foot S98.131A ; Methamphetamine use disorder, severe, 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 and Type 2 diabetes mellitus with other diabetic neurological complication E11.49 [facility] [address] [place] [id number] [address] [place] [address] May, [facility] [address] [id number] [address] [place] [address] May, [facility] [address] [facility] [id number] [address] [place] [address] May, [facility] [address] [facility] [id number] [address] [place] [address] May, [facility] [address] [id number] [address] [place] [address] May, [facility] [address] [facility] [id number] [address] [place] [address] May, Chronic hepatitis C without hepatic coma B18.2 and HTN (hypertension) I10 [facility] [address] [id number] [address] [place] [address] May, Neuropathy G62.9 [facility] [address] [facility] [id number] [address] [place] [address] Apr, [id number] [place] [address] Apr, [facility] [address] [facility] [id number] [address] [place] [address] Apr, [facility] [address] [facility] [id number] [address] [place] [address] Apr, [facility] [address] [id number] [address] [place] [address] Apr, [facility] [address] [id number] [address] [place] [address] Apr, [facility] [address] [id number] [address] [place] [address] Apr, [facility] [address] [facility] [id number] [address] [place] [address] Apr, Ulcer of right foot, unspeci fied ulcer stage L97.519 ; Type 2 diabetes mellitus with other diabetic neurological complication E11.49 ; Onychomycosis B35.1 and Hammer toe, unspecified laterality M20.40 [facility] [address] [facility] [id number] [address] [place] [address] Apr, [facility] [address] [facility] [id number] [address] [place] [address] Apr, HTN (hypertension) I10 and U lcer of toe of right foot, unspecified ulcer stage L97.519 [facility] [address] [facility] [id number] [address] [place] [address] Apr, [place] [address] [place] [id number] [address] [place] [address] Apr, Schizoaffective disorder, de pressive type F25.1 ; Other nursing home (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.899 and Stimulant use disorder F15.90 [place] [id number] [place] [address] Apr, [place] [address] [place] [id number] [address] [place] [address] Apr, [place] [address] [place] [id number] [address] [place] [address] Apr, [facility] [address] [place] [id number] [place] [address] Mar, Pre-ulcerative calluses L84 [facility] [address] [place] [id number] [address] [place] [address] Mar, HTN (hypertension) I10 ; DM neuro manif type II E11.49 ; Morbid (severe) obesity due to excess calories E66.01 and Polyneuropathy G62.9 [place] [address] [facility] [id number] [address] [place] [address] Mar, [place] [address] [place] [id number] [address] [place] [address] Mar, [facility] [address] [place] [id number] [address] [place] [address] Mar, Onychomycosis B35.1 ; Callus of foot L84 and Hammer toe, unspecified laterality M20.40 [facility] [address] [place] [id number] [address] [place] [address] Mar, Neuropathy G62.9 [facility] [address] [place] [id number] [address] [place] [address] Mar, [facility] [address] [place] [id number] [place] [address] Mar, [facility] [address] [place] [id number] [place] [address] Mar, [facility] [address] [place] [id number] [place] [address] Mar, Constipation, unspecified co nstipation type K59.00 [place] [address] [place] [id number] [address] [place] [address] Mar, [facility] [address] [place] [id number] [address] [place] [address] Mar, [place] [address] [address] Mar, Chronic hepatitis C without hepatic coma B18.2 ; High risk medication use Z79.899 and Encounter for immunization Z23 [place] [address] [place] [id number] [address] [place] [address] Mar, [facility] [address] [place] [id number] [address] [place] [address] Mar, Neuropathy G62.9 [facility] [address] [place] [id number] [address] [place] [address] Mar, High risk sexual behavior, u nspecified type Z72.51 [facility] [address] [place] [id number] [address] [place] [address] Feb, Callus of foot L84 [place] [address] [facility] [id number] [address] [place] [address] Feb, Callus of foot L84 [facility] [address] [facility] [id number] [address] [place], [place] [address] Feb, [facility] [address] [facility] [id number] [address] [place] [address] Feb, [facility] [address] [facility] [id number] [place] [address] Feb, Methamphetamine use disorder, severe, de pendence F15.20 ; Alcohol use disorder, severe, dependence F10.20 and Cannabis use disorder, severe, dependence F12.20 [facility] [address] [facility] [id number] [address] [place] [address] Feb, Chronic hepatitis C without hepatic coma B18.2 [facility] [address] [facility] [id number] [place] [address] Feb, Methamphetamine use disorder, severe, de pendence F15.20 ; Alcohol use disorder, severe, dependence F10.20 and Cannabis use disorder, severe, dependence F12.20 [facility] [address] [facility] [id number] [address] [place] [address] Feb, [facility] [address] [facility] [id number] [address] [place] [address] Feb, Chronic hepatitis C without hepatic coma B18.2 [facility] [address] [facility] [id number] [place] [address] Feb, Methamphetamine use disorder, severe, de pendence F15.20 ; Alcohol use disorder, severe, dependence F10.20 and Cannabis use disorder, severe, dependence F12.20 [facility] [address] [facility] [id number] [address] [place] [address] Feb, [facility] [address] [facility] [id number] [address] [place] [address] Feb, [facility] [address] [facility] [id number] [address] [place] [address] Feb, [facility] [address] [facility] [id number] [address] [place] [address] Feb, [facility] [address] [facility] [id number] [address] [place] [address] Feb, Neuropathy G62.9 [facility] [address] [facility] [id number] [address] [place] [address] Feb, Schizoaffective disorder, de pressive type F25.1 ; 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 and Stimulant use disorder F15.90 [facility] [address] [id number] [address] [place] [address] Feb, Onychomycosis B35.1 and Neur opathy G62.9 [facility] [address] [facility] [id number] [address] [place] [address] Feb, [facility] [address] [facility] [id number] [address] [place] [address] Feb, [facility] [address] [facility] [id number] [address] [place] [address] Feb, [facility] [address] [facility] [id number] [place] [address] Feb, Methamphetamine use disorder, severe, de pendence F15.20 ; Alcohol use disorder, severe, dependence F10.20 and Cannabis use disorder, severe, dependence F12.20 [facility] [address] [facility] [id number] [address] [place] [address] Feb, Chronic hepatitis C without hepatic coma B18.2 and Encounter for immunization Z23 [facility] [address] [id number] [address] [place] [address] Jan, [facility] [address] [facility] [id number] [address] [place] [address] Jan, [facility] [address] [facility] [id number] [address] [place] [address] Jan, [facility] [address] [id number] [address] 25 Jan, 2019 Methamphetamine use disorder, severe, de pendence F15.20 ; Alcohol use disorder, severe, dependence F10.20 and Cannabis use disorder, severe, dependence F12.20 [facility] [address] [id number] [address] [place] [address] 24 Jan, 2019 [facility] [address] [id number] [address] [place] [address] Jan, [facility] [address] [id number] [address] [place] [address] Jan, History of amputation Z89.9 [facility] [address] [facility] [id number] [address] [place] [address] Jan, [facility] [address] [facility] [id number] [address] [place] [address] Jan, [facility] [address] [facility] [id number] [address] [place] [address] Jan, [facility] [address] [id number] [address] [place] [address] Jan, [facility] [address] [facility] [id number] [address] [place] [address] Jan, [facility] [address] [facility] [id number] [address] [place] [address] Jan, [facility] [address] [id number] [address] [place] [address] Jan, [facility] [address] [id number] [address] [place] [address] Jan, [facility] [address] [facility] [id number] [place] [address] 18 Jan, 2019 Methamphetamine use disorder, severe, de pendence F15.20 ; Alcohol use disorder, severe, dependence F10.20 and Cannabis use disorder, severe, dependence F12.20 [facility] [address] [facility] [id number] [address] [place] [address] 18 Jan, 2019 [facility] [address] [facility] [id number] [address] [place] [address] 16 Jan, 2019 [facility] [address] [facility] [id number] [address] [place] [address] 13 Jan, 2019 [facility] [address] [place] [id number] [place] [address] Jan, Methamphetamine use disorder, severe, de pendence F15.20 ; Alcohol use disorder, severe, dependence F10.20 and Cannabis use disorder, severe, dependence F12.20 [facility] [address] [place] [id number] [place] [address] Jan, Methamphetamine use disorder, severe, de pendence F15.20 ; Cannabis use disorder, severe, dependence F12.20 and Alcohol use disorder, severe, dependence F10.20 [facility] [address] [place] [id number] [address] [place] [address] Jan, Chronic hepatitis C without hepatic coma B18.2 [place] [address] [place] [id number] [address] [place] [address] Jan, Neuropathy G62.9 [facility] [address] [place] [id number] [address] [place] [address] Jan, [place] [address] [place] [id number] [address] [place] [address] Jan, [place] [address] [place] [id number] [address] [place] [address] Jan, Chronic hepatitis C without hepatic coma B18.2 [place] [address] [place] [id number] [address] [place] [address] Dec, Right foot pain M79.671 [place] [address] [facility] [id number] [address] [place] [address] Dec, Schizoaffective disorder, de pressive type F25.1 ; 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 and Stimulant use disorder F15.90 [facility] [address] [facility] [id number] [address] [place] [address] Dec, [facility] [address] [place] [id number] [place] [address] Dec, Methamphetamine use disorder, severe, de pendence F15.20 ; Alcohol use disorder, severe, dependence F10.20 and Cannabis use disorder, severe, dependence F12.20 [place] [address] [place] [id number] [address] [place] [address] Dec, [facility] [address] [facility] [id number] [address] [place] [address] Dec, [facility] [address] [place] [id number] [place] [address] Dec, Ulcer of toe of right foot, unspecified ulcer stage L97.519 [place] [address] [place] [id number] [address] [place] [address] Dec, [facility] [address] [address] Dec, Methamphetamine use disorder, severe, de pendence F15.20 ; Cannabis use disorder, severe, dependence F12.20 and Alcohol use disorder, severe, dependence F10.20 [place] [address] [place] [id number] [address] [place] [address] Dec, [facility] [address] [place] [id number] [address] [place] [address] Dec, Allergic contact dermatitis, unspecified trigger L23.9 and Ankle swelling, unspecified laterality M25.473 [place] [address] [place] [id number] [address] [place] [address] Dec, [place] [address] [place] [id number] [address] [place] [address] Dec, [facility] [address] [address] Dec, Methamphetamine use disorder, severe, de pendence F15.20 ; Alcohol use disorder, severe, dependence F10.20 and Cannabis use disorder, severe, dependence F12.20 [facility] [address] [facility] [id number] [address] [place] [address] Dec, [facility] [address] [facility] [id number] [address] [place] [address] Dec, [facility] [address] [facility] [id number] [address] [place] [address] Dec, Diarrhea of presumed infecti ous origin R19.7 ; Chronic hepatitis C without hepatic coma B18.2 and Nail fungus B35.1 [place] [address] [facility] [id number] [address] [place] [address] Dec, Neuropathy G62.9 [facility] [address] [place] [id number] [address] [place] [address] Dec, [facility] [address] [place] [id number] [address] [place] [address] Nov, Schizoaffective disorder, de pressive type F25.1 ; 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 and Stimulant use disorder F15.90 [facility] [address] [place] [id number] [address] [place] [address] Nov, [facility] [id number] [place] [address] Nov, Substance abuse F19.10 [facility] [address] [facility] [id number] [address] [place] [address] Nov, [facility] [address] [facility] [id number] [address] [place] [address] Nov, Chronic hepatitis C without hepatic coma B18.2 [facility] [address] [facility] [id number] [address] [place] [address] Nov, [facility] [address] [place] [id number] [address] [place] [address] Nov, Fatigue, unspecified type R5 3.83 [facility] [address] [id number] [address] [place] [phone] Nov, Schizoaffective disorder, de pressive type F25.1 ; 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 and Stimulant use disorder F15.90 [facility] [address] [id number] [address] [place] [phone] Nov, [facility] [address] [facility] [id number] [address] [place] [phone] Nov, [facility] [address] [id number] [address] [place] [phone] Nov, [facility] [address] [facility] [id number] [address] [place] [phone] Oct, Neuropathy G62.9 [place] [address] [facility] [id number] [address] [place] [phone] Oct, Prediabetes R73.03 ; 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.899 and Chronic hepatitis C without hepatic coma B18.2 [facility] [address] [facility] [id number] [address] [place] [phone] Oct, Schizoaffective disorder, de pressive type F25.1 and 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 [facility] [address] [facility] [id number] [address] [place] [phone] Oct, [facility] [facility] [address] [facility] [id number] [address] [place] [address] 14 Oct, 2018 Sore throat J02.9 and Acute non-recurrent frontal sinusitis J01.10 [place] [address] [facility] [id number] [address] [place] [address] 11 Oct, 2018 [facility] [address] [facility] [id number] [address] [place] [address] 07 Oct, 2018 Acute URI J06.9 [place] [address] [id number] [address] [place] [address] Oct, [facility] [address] [facility] [id number] [address] [place] [address] Oct, Schizoaffective disorder, de pressive type F25.1 [facility] [address] [facility] [id number] [address] [place] [address] Oct, [facility] [address] [facility] [id number] [address] [place] [address] Oct, Substance abuse F19.10 [facility] [address] [facility] [id number] [address] [place] [address] Oct, Bronchitis J40 [facility] [address] [id number] [address] September, Back pain M54.9 [facility] [address] [facility] [id number] [address] [place] [address] September, Schizoaffective disorder, de pressive type F25.1 [facility] [address] [facility] [id number] [address] [place] [address] September, [address] [id number] [address] September, Substance abuse F19.10 [facility] [address] [facility] [id number] [address] [place] [address] September, [facility] [address] [facility] [id number] [address] [place] [address] September, Schizoaffective disorder, de pressive type F25.1 [facility] [address] [facility] [id number] [address] [place] [address] September, Substance abuse F19.10 [facility] [address] [facility] [id number] [address] [place] [address] September, [facility] [address] [facility] [id number] [address] [place] [address] 16 Sep, 2018 Substance abuse F19.10 [facility] [address] [id number] [address] [place] [address] September, Encounter for Medicare sabi wellness exam Z00.00 ; Ulcer of right foot, unspecified ulcer stage L97.519 ; Type 2 diabetes mellitus with other diabetic neurological complication E11.49 ; COPD (chronic obstructive pulmonary disease) J44.9 ; PAD (peripheral artery disease) I73.9 ; Schizoaffective disorder, depressive type F25.1 and Routine adult health maintenance Z00.00 [facility] [address] [id number] [address] [place] [address] September, Schizoaffective disorder, de pressive type F25.1 [facility] [address] [id number] [address] [place] [address] September, [facility] [address] [id number] [address] [place] [address] September, [facility] [address] [id number] [address] [place] [address] September, Schizoaffective disorder, de pressive type F25.1 [facility] [address] [id number] [address] [place] [address] Aug, [facility] [address] [id number] [address] [place] [address] Aug, Rib pain on left side R07.81 and Closed fracture of multiple ribs of left side with routine healing, subsequent encounter S22.42XD [facility] [address] [id number] [address] [place] [address] Aug, [facility] [address] [id number] [address] [place] [address] Aug, [facility] [address] [facility] [id number] [address] [place] [address] Jul, [facility] [address] [id number] [address] [place] [address] Jul, [facility] [address] [id number] [address] [place] [address] Jul, [facility] [address] [facility] [id number] [address] [place] [address] Jul, Back pain M54.9 [facility] [address] [id number] [address] [place] [address] Jul, Polyneuropathy in diseases c lassified elsewhere G63 [facility] [address] [facility] [id number] [address] [place] [address] Jul, Constipation, unspecified co nstipation type K59.00 and Burn T30.0 [facility] [address] [facility] [id number] [address] [place] [address] Jul, [facility] [address] [facility] [id number] [address] [place] [address] Jun, 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 [facility] [address] [id number] [address] [place] [address] Jun, Back pain M54.9 [facility] [address] [facility] [id number] [address] [place] [address] Jun, 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 [facility] [address] [facility] [id number] [address] [place] [address] Jun, [facility] [address] [facility] [id number] [address] [place] [address] Jun, [facility] [address] [facility] [id number] [address] [place] [address] Jun, [facility] [address] [facility] [id number] [address] [place] [address] May, [facility] [address] [facility] [id number] [address] [place] [address] May, Back pain M54.9 [facility] [address] [id number] [address] [place] [address] May, [facility] [address] [id number] [address] [place] [address] May, 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 ; Chronic hepatitis C without hepatic coma B18.2 and HTN (hypertension) I10 [facility] [address] [id number] [address] [place] [address] Apr, Back pain M54.9 [facility] [address] [id number] [address] [place] [address] Apr, [facility] [address] [id number] [address] [place] [address] Apr, Polyneuropathy in diseases c lassified elsewhere G63 [facility] [address] [id number] [address] [place] [address] Mar, Back pain M54.9 [facility] [address] [id number] [address] [place] [address] Mar, [facility] [address] [id number] [address] [place] [address] Mar, Back pain M54.9 [facility] [address] [id number] [address] [place] [address] Mar, [facility] [address] [id number] [address] [place] [address] Mar, [facility] [address] [id number] [address] [place] [address] Mar, Polyneuropathy in diseases c lassified elsewhere G63 [facility] [address] [id number] [address] [place] [address] Feb, Back pain M54.9 [facility] [address] [id number] [address] [place] [address] Jan, Back pain M54.9 [facility] [address] [id number] [address] [place] [address] Jan, [facility] [address] [id number] [address] [place] [address] Jan, [facility] [address] [id number] [address] [place] [address] Dec, Back pain M54.9 [facility] [address] [id number] [address] [place] [address] Dec, [facility] [address] [id number] [address] [place] [address] Dec, Upper respiratory tract infe ction, unspecified type J06.9 [facility] [address] [id number] [address] [place] [address] Dec, [facility] [address] [id number] [address] [place] [address] Dec, Acute suppurative otitis med ia of right ear without spontaneous rupture of tympanic membrane, recurrence not specified H66.001 and Acute nasopharyngitis J00 [facility] [address] [facility] [id number] [address] [place] [address] Dec, Back pain M54.9 [facility] [address] [id number] [address] [place] [address] Dec, Foot infection L08.9 and 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 [facility] [address] [id number] [address] [place] [address] Nov, Cellulitis of toe of right f oot L03.031 ; Polyneuropathy in diseases classified elsewhere G63 and HTN (hypertension) I10 [facility] [address] [id number] [address] [place] [address] Nov, [facility] [address] [facility] [id number] [address] [place] [address] Nov, [facility] [address] [id number] [address] [place] [address] Nov, Back pain M54.9 [facility] [address] [id number] [address] [place] [address] Nov, Shortness of breath R06.02 [facility] [address] [id number] [address] [place] [address], [place] [address] Nov, [facility] [address] [id number] [address] [place] [address], [place] [address] Oct, [facility] [address] [id number] [address] [place] [address], [place] [address] Oct, [facility] [address] [id number] [address] [place] [address] Oct, [facility] [address] [id number] [address] [place] [address] Oct, [facility] [address] [id number] [address] [place] [address] Oct, [facility] [address] [id number] [address] [place] [address] Oct, Back pain M54.9 [facility] [address] [id number] [address] [place] [address] Oct, Back pain M54.9 [facility] [address] [id number] [address] [place] [address] Oct, [facility] [address] [id number] [address] [place] [address], [place] [address] September, [facility] [address] [id number] [address] [place] [address] September, [facility] [address] [id number] [address] [place] [address] September, [facility] [address] [id number] [address] [place] [address] September, 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 and Hypotension, unspecified hypotension type I95.9 [facility] [address] [id number] [address] [place] [address] September, [facility] [address] [facility] [id number] [address] [place] [address] September, [facility] [address] [facility] [id number] [address] [place] [address] September, Back pain M54.9 [facility] [address] [facility] [id number] [address] [place] [address] Aug, [facility] [address] [facility] [id number] [address] [place] [address] Aug, Acute cystitis with hematuri a N30.01 ; Ulcer of right foot, unspecified ulcer stage L97.519 ; HTN (hypertension) I10 ; COPD (chronic obstructive pulmonary disease) J44.9 and DM neuro manif type II E11.49 [facility] [address] [facility] [id number] [address] [place] [address] Aug, Back pain M54.9 [facility] [address] [facility] [id number] [address] [place] [address] Jul, [facility] [address] [facility] [id number] [address] [place] [address] Jul, Back pain M54.9 [facility] [address] [id number] [address] [place] [address] Jul, [facility] [address] [facility] [id number] [address] [place] [address] Jul, DM neuro manif type II E11.4 9 and Ulcer of right foot, unspecified ulcer stage L97.519 [facility] [address] [facility] [id number] [address] [place] [address] Jun, [facility] [address] [id number] [address] [place] [address] 15 Jun, 2017 [facility] [address] [id number] [address] [place] [address] May, 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 ; GERD (gastroesophageal reflux disease) K21.9 and PAD (peripheral artery disease) I73.9 [facility] [address] [id number] [address] [place] [address] May, Decubital ulcer L89.90 ; Nathalia betes E11.9 and GERD (gastroesophageal reflux disease) K21.9 [facility] [address] [id number] [address] [place] [address] May, [facility] [address] [id number] [address] [place] [address] Apr, [facility] [address] [facility] [id number] [address] [place] [address] Mar, [facility] [address] [id number] [address] [place] [address] Mar, [facility] [address] [facility] [id number] [address] [place] [address] Feb, [facility] [address] [facility] [id number] [address] [place] [address] Feb, [facility] [address] [facility] [id number] [address] [place] [address] Jan, [facility] [address] [id number] [address] [place] [address] Jan, HTN (hypertension) I10 [facility] [address] [id number] [address] [place] [address] Jan, [facility] [address] [facility] [id number] [address] [place] [address] Dec, Back pain M54.9 [facility] [address] [id number] [address] [place] [address] Dec, Back pain M54.9 [facility] [address] [id number] [address] [place] [address] Dec, Encounter for immunization Z 23 and Puncture wound of right foot, initial encounter S91.331A [facility] [address] [id number] [address] [place] [address] Dec, [facility] [address] [id number] [address] [place] [address] Nov, [facility] [address] [id number] [address] [place] [address] Nov, COPD (chronic obstructive pu lmonary disease) J44.9 [facility] [address] [id number] [address] [place] [address] Nov, [facility] [address] [facility] [id number] [address] [place] [address] Oct, [facility] [address] [id number] [address] [place] [address] Oct, [facility] [address] [facility] [id number] [address] [place] [address] September, Onychomycosis B35.1 and DM n euro manif type II E11.49 [facility] [address] [id number] [address] [place] [address] September, [facility] [address] [id number] [address] [place] [address] Aug, [facility] [address] [id number] [address] [place] [address] Jul, Sinusitis, unspecified chron icity, unspecified location J32.9 and Cough R05 [facility] [address] [id number] [address] [place] [address] Jul, Back pain M54.9 [facility] [address] [id number] [address] [place] [address] 14 Jun, 2016 Back pain M54.9 [facility] [address] [facility] [id number] [address] [place] [address] 06 Jun, 2016 COPD (chronic obstructive pu lmonary disease) J44.9 [facility] [address] [facility] [id number] [address] [place] [address] May, [facility] [address] [facility] [id number] [address] [place] [address] May, [facility] [address] [facility] [id number] [address] [place] [address] May, Back pain M54.9 [facility] [address] [facility] [id number] [address] [place] [address] May, [facility] [address] [facility] [id number] [address] [place] [address] May, [facility] [address] [facility] [id number] [address] [place] [address] May, Diabetes E11.9 [facility] [address] [facility] [id number] [address] [place] [address] May, Diabetes E11.9 ; GERD (gastr oesophageal [...] Need for hepatitis C screening test Z11.59 [facility] [address] [facility] [id number] [address] [place] [address] May, HTN (hypertension) I10 [facility] [address] [facility] [id number] [address] [place] [address] Apr, [facility] [address] [place] [id number] [address] [place] [address] Apr, [facility] [address] [id number] [address] [place] [address] Apr, [facility] [address] [id number] [address] [place] [address] Apr, [facility] [address] [id number] [address] [place] [address] Apr, [facility] [address] [id number] [address] [place] [address] Mar, [facility] [address] [id number] [address] [place] [address] Mar, [facility] [address] [id number] [address] [place] [address] Mar, [facility] [address] [id number] [address] [place] [address] Mar, [facility] [address] [id number] [address] [place] [address] Mar, Dental examination Z01.20 [facility] [address] [id number] [address] [place] [address] Feb, [facility] [address] [id number] [address] [place] [address] Feb, [facility] [address] [id number] [address] [place] [address] Feb, Back pain M54.9 [facility] [address] [id number] [address] [place] [address] Jan, [facility] [address] [id number] [address] [place] [address] Jan, [facility] [address] [id number] [address] [place] [address] Dec, Diabetes E11.9 ; GERD (gastr oesophageal reflux disease) K21.9 ; ED (erectile dysfunction) N52.9 ; HTN (hypertension) I10 ; Insomnia G47.00 ; COPD (chronic obstructive pulmonary disease) J44.9 ; Neuropathy G62.9 and Bipolar depression F31.30 [facility] [address] [id number] [address] [place] [address] Dec, 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 and Onychomycosis B35.1 [facility] [address] [id number] [address] [place] [address] Dec, [facility] [address] [id number] [address] [place] [address] Dec, [facility] [address] [id number] [address] [place] [address] Dec, [facility] [address] [id number] [address] [place] [phone] Dec, [facility] [address] [id number] [address] [place] [phone] Nov, [facility] [address] [id number] [address] [place] [phone] Nov, [facility] [address] [id number] [address] [place] [phone] Oct, [facility] [address] [id number] [address] [place] [phone] Oct, [facility] [address] [id number] [address] [place] [phone] Oct, Back pain M54.9 [facility] [address] [id number] [address] [place] [phone] Oct, [facility] [address] [id number] [address] [place] [phone] Oct, [facility] [address] [id number] [address] [place] [id number] Oct, [facility] [address] [id number] [address] [place] [phone] Oct, HTN (hypertension) I10 [facility] [address] [facility] [id number] [address] [place] [phone] Oct, Back pain M54.9 [facility] [address] [facility] [id number] [address] [place] [phone] Oct, Chronic pain syndrome G89.4 [facility] [address] [facility] [id number] [address] [place] [id number] September, Back pain M54.9 [facility] [address] [facility] [id number] [address] [place] [id number] September, HTN (hypertension) I10 [facility] [address] [facility] [id number] [address] [place] [phone] Aug, Porokeratosis Q82.8 ; Onycho mycosis B35.1 and Type 2 diabetes mellitus with other diabetic neurological complication E11.49 [facility] [address] [place] [id number] [address] [place] [phone] Aug, GERD (gastroesophageal reflu x disease) K21.9 ; Diabetes E11.9 ; HTN (hypertension) I10 ; Insomnia G47.00 ; Restless legs syndrome G25.81 ; COPD (chronic obstructive pulmonary disease) J44.9 ; Back pain M54.9 and Bipolar 1 disorder F31.9 [facility] [address] [facility] [id number] [address] [place] [id number] Aug, [facility] [address] [facility] [id number] [address] [place] [phone] Aug, [facility] [address] [facility] [id number] [address] [place] [id number] Aug, [facility] [facility] [address] [facility] [id number] [address] [place] [address] Aug, [facility] [address] [facility] [id number] [address] [place] [address] Jul, [facility] [address] [facility] [id number] [address] [place] [address] 31 Jul, 2015 [facility] [address] [facility] [id number] [address] [place] [address] 30 Jul, 2015 [facility] [address] [facility] [id number] [address] [place] [address] 16 Jul, 2015 [facility] [address] [facility] [id number] [address] [place] [phone] 15 Jul, 2015 [facility] [address] [facility] [id number] [address] [place] [address] Jul, [facility] [address] [facility] [id number] [address] Jun, Decubital ulcer L89.90 ; Nathalia betes E11.9 ; Back pain M54.9 ; HTN (hypertension) I10 and COPD (chronic obstructive pulmonary disease) J44.9 [facility] [address] [place] [id number] [address] [place] [address] Jun, [facility] [address] [place] [id number] [address] [place] [address] Jun, [facility] [address] [place] [id number] [address] [place] [address] Jun, [facility] [address] [place] [id number] [address] [place] [address] Jun, [facility] [id number] [place] [address] Jun, Diabetes E11.9 ; Insomnia G4 7.00 ; Decubital ulcer L89.90 ; GERD (gastroesophageal reflux disease) K21.9 ; Back pain M54.9 ; Superficial fungus infection of skin B36.9 and HTN (hypertension) I10 [place] [id number] [place] [address] [id number] 02 Jun, 2015 Dental examination Z01.20 [facility] [address] [place] [id number] [address] [place] [address] May, [facility] [address] [facility] [id number] [address] [place] [address] May, [facility] [address] [facility] [id number] [address] [place] [address] May, [facility] [address] [place] [id number] [address] [place] [address] May, Diabetes E11.9 ; HTN (hypert ension) I10 and Decubital ulcer L89.90 [place] [address] [facility] [id number] [address] [place] [address] May, HTN (hypertension) I10 ; Dec ubital ulcer L89.90 and Diabetes E11.9 [place] [address] [place] [id number] [address] [place] [address] 30 Apr, 2015 Diabetes E11.9 ; GERD (gastr oesophageal reflux disease) K21.9 ; Back pain M54.9 ; HTN (hypertension) I10 ; Restless legs syndrome G25.81 and Decubital ulcer L89.90 [place] [address] [place] [id number] [address] [place] [address] Apr, [place] [address] [place] [id number] [address] [place] [address] Apr, Diabetes E11.9 ; HTN (hypert ension) I10 ; Restless legs syndrome G25.81 ; GERD (gastroesophageal reflux disease) K21.9 and COPD (chronic obstructive pulmonary disease) J44.9 [facility] [address] [facility] [id number] [address] [place] [address] Mar, [place] [address] [place] [id number] [address] [place] [address] Mar, [place] [address] [place] [id number] [address] [place] [address] Mar, Diabetes E11.9 ; Abscess L02 .91 and Restless legs syndrome G25.81 [place] [address] [address] Mar, [place] [address] [address] Feb, GERD (gastroesophageal reflu x disease) K21.9 ; Back pain M54.9 ; ED (erectile dysfunction) N52.9 ; Diabetes E11.9 ; HTN (hypertension) I10 and Insomnia G47.[address] [address] Feb, [place] [address] [address] Feb, [address] [address] Jan, [place] [address] [address] Jan, Diabetes 250.00 ; Nondepende nt cannabis abuse, continuous 305.21 ; Cough 786.2 ; Schizoaffective disorder, unspecified 295.70 ; Sciatica 724.3 ; Other, mixed, or unspecified nondependent drug abuse, unspecified 305.90 ; Chronic pain 338.29 ; GERD (gastroesophageal reflux disease) 530.81 and HTN (hypertension) 401.[address] [address] Jan, [address] [address] Jan, [address] [address] Jan, Chronic pain associated with significant psychosocial dysfunction 338.4 ; Diabetes mellitus without mention of complication, type I [juvenile type], uncontrolled 250.03 ; Benign essential hypertension 401.1 ; Schizoaffective disorder, unspecified 295.70 ; Wheezing 786.07 ; Ear ache 388.70 ; Cough 786.2 ; Sciatica 724.3 and Foot pain, bilateral 729.[address] [address] Dec, [facility] [address] [id number] [address] [place] [address] Dec, [facility] [address] [facility] [id number] [address] [place] [address] Dec, [facility] [address] [facility] [id number] [address] [place] [address] Dec, [facility] [address] [facility] [id number] [address] [place] [address] Dec, [facility] [address] [facility] [id number] [address] [place] [address] Nov, Elevated liver enzymes 790.5 [facility] [address] [facility] [id number] [address] [place] [address] Nov, [facility] [address] [facility] [id number] [address] [place] [address] Nov, [facility] [address] [facility] [id number] [address] [place] [address] Nov, [facility] [address] [facility] [id number] [address] [place] [address] Nov, Benign essential hypertensio n 401.1 ; Diabetes mellitus without mention of complication, type I [juvenile type], uncontrolled 250.03 and Nondependent cannabis abuse, continuous 305.21 [facility] [address] [id number] [address] [place] [address] Oct, Cellulitis 682.9 and Benign essential hypertension 401.1 [facility] [address] [id number] [address] [place] [address] Oct, [facility] [address] [facility] [id number] [address] [place] [address] September, [facility] [address] [facility] [id number] [address] [place] [address] September, [facility] [address] [id number] [address] [place] [address], [place] [address] 28 Aug, 2014 [facility] [address] [id number] [address] [place] [address], [place] [address] 28 Aug, 2014 [facility] [address] [id number] [address] [place] [address], [place] [address] 14 Aug, 2014 [facility] [address] [id number] [address] [place] [address], [place] [address] 13 Aug, 2014 [facility] [address] [id number] [address] [place] [address], [place] [address] 25 Jul, 2014 [facility] [address] [id number] [address] [place] [address], [place] [address] Jul, [facility] [address] [id number] [address] [place] [address], [place] [address] Jul, [facility] [address] [id number] [address] [place] [address], [place] [address] Jul, [facility] [address] [id number] [address] [place] [address], [place] [address] Jul, [facility] [address] [id number] [address] [place] [address], [place] [address] Jul, [facility] [address] [id number] [address] [place] [address], [place] [address] Jun, [facility] [address] [id number] [address] [place] [address], [place] [address] Jun, [facility] [address] [id number] [address] [place] [address], [place] [address] Jun, [facility] [address] [id number] [address] [place] [address], [place] [address] Jun, [facility] [address] [id number] [address] [place] [address], [place] [address] 05 Jun, 2014 [facility] [address] [id number] [address] [place] [address] [address] May, [facility] [address] [id number] [address] [place] [address], [place] [address] May, [facility] [address] [id number] [address] [place] [address], [place] [address] May, [facility] [address] [id number] [address] [place] [address], [place] [address] May, [facility] [address] [id number] [address] [place] [address], [place] [address] May, [facility] [address] [id number] [address] [place] [address], [place] [address] May, [facility] [address] [id number] [address] [place] [address], [place] [address] May, [facility] [address] [id number] [address] [place] [address], [place] [address] May, [facility] [address] [id number] [address] [place] [address], [place] [address] Apr, [facility] [address] [id number] [address] [place] [address], [place] [address] Apr, [facility] [address] [id number] [address] [place] [address], [place] [address] Apr, [facility] [address] [id number] [address] [place] [address], [place] [address] Apr, [facility] [address] [id number] [address] [place] [address], [place] [address] Mar, [facility] [address] [id number] [address] [place] [address], [place] [address] Mar, [facility] [address] [id number] [address] [place] [address], [place] [address] Mar, [facility] [address] [id number] [address] [place] [address], [place] [address] Mar, [facility] [address] [id number] [address] [place] [address], [place] [address] Feb, [facility] [address] [id number] [address] [place] [address], [place] [address] Feb, [facility] [address] [id number] [address] [place] [address], [place] [address] Feb, [facility] [address] [id number] [address] [place] [address], [place] [address] Feb, [facility] [address] [id number] [address] [place] [address], [place] [address] Feb, [facility] [address] [id number] [address] [place] [address], [place] [address] Feb, [facility] [address] [id number] [address] [place] [address], [place] [address] Jan, [facility] [address] [id number] [address] [place] [address], [place] [address] Jan, [facility] [address] [id number] [address] [place] [address], [place] [address] Jan, [facility] [address] [id number] [address] [place] [address], [place] [address] Jan, [facility] [address] [id number] [address] [place] [address], [place] [address] Dec, [facility] [address] [id number] [address] [place] [address], [place] [address] Dec, [facility] [address] [id number] [address] [place] [address], [place] [address] Dec, [facility] [address] [id number] [address] [place] [address], [place] [address] Dec, [facility] [address] [id number] [address] [place] [address], [place] [address] Dec, [facility] [address] [id number] [address] [place] [address], [place] [address] Dec, [facility] [address] [id number] [address] [place] [address], [place] [address] Oct, [facility] [address] [id number] [address] [place] [address], [place] [address] Oct, [facility] [address] [id number] [address] [place] [address], [place] [address] September, [facility] [address] [id number] [address] [place] [address], [place] [address] September, [facility] [address] [id number] [address] [place] [address], [place] [address] September, [facility] [address] [id number] [address] [place] [address], [place] [address] September, [facility] [address] [id number] [address] [place] [address], [place] [address] September, [facility] [address] [id number] [address] [place] [address], [place] [address] September, [facility] [address] [id number] [address] [place] [address], [place] [address] Aug, [facility] [address] [id number] [address] [place] [address], [place] [address] Aug, [facility] [address] [id number] [address] [place] [address], [place] [address] Aug, [facility] [address] [id number] [address] [place] [address], [place] [address] Aug, [facility] [address] [id number] [address] [place] [address], [place] [address] Jul, [facility] [address] [id number] [address] [place] [address], [place] [address] Jul, [facility] [address] [id number] [address] [place] [address], [place] [address] 24 Jun, 2013 [facility] [address] [id number] [address] [place] [address], [place] [address] Jun, [facility] [address] [id number] [address] [place] [address], [place] [address] May, [facility] [address] [id number] [address] [place] [address], [place] [address] May, [facility] [address] [id number] [address] [place] [address], [place] [address] Jan, [facility] [address] [id number] [address] [place] [address], [place] [address] Dec, [facility] [address] [id number] [address] [place] [address], [place] [address] Jun, [facility] [address] [id number] [address] [place] [address], [place] [address] May, [facility] [address] [id number] [address] [place] [address], [place] [address] Nov, [facility] [address] [id number] [address] [place] [address], [place] [address] September, [facility] [address] [id number] [address] [place] [address], [place] [address] Aug, [facility] [address] [id number] [address] [place] [address], [place] [address] Aug, [facility] [address] [id number] [address] [place] [address], [place] [address] Aug, [facility] [address] [id number] [address] [place] [address], [place] [address] Aug, [facility] [address] [id number] [address] [place] [address], [place] [address] Nov, [facility] [address] [id number] [address] [place] [address], [place] [address] Oct, [facility] [address] [id number] [address] [place] [address], [place] [address] Jul, [facility] [address] [id number] [address] [place] [address] Feb, [facility] [address] [id number] [address] [place] [address] Feb, [facility] [address] [id number] [address] [place] [address] Apr, [facility] [address] [id number] [address] [place] [address] Apr, [facility] [address] [id number] [address] [place] [address] Feb, [facility] [address] [id number] [address] [place] [address] Feb, [facility] [address] [facility] [id number] [address] [place] [address] Jul, IMMUNIZATIONS No Known Immunizations SOCIAL HISTORY [...]
--- OUTSIDE RECORDS SUMMARY | 2019-09-09 08:32 | XMS REPORT ---
Author Author Sahil JAMESON NA [facility] Organization [facility] Address [address] [place] [address] Care Team Providers Care Coding Compliance Specialist Name Role Phone MICHAEL CEDILLOMELIZA Unavailable PROBLEMS Type Condition ICD9-CM Code [id number] Code Onset Dates Condition S tatus SNOMED Code Problem Restless legs syndrome G25.81 Active 469380989 Problem GERD (gastroesophageal reflux disease) K21.9 Active 888177211 Problem Sinusitis, unspecified chronicity, unspecified location J32.9 Active 44655707 Problem COPD (chronic obstructive pulmonary disease) J44.9 Active 98864283 Problem Ulcer of right foot, unspecified ulcer stage L97.5 19 Active 32987522 Problem DM neuro manif type II E11.49 Active 93047292 Problem Constipation, unspecified constipation type K59.00 Active 89653733 Problem Schizoaffective disorder, depressive type F25.1 Active 82407336 Problem PAD (peripheral artery disease) I73.9 Active 163951621 Problem Chronic hepatitis C without hepatic coma B18.2 Active 253103944 Problem Polyneuropathy G62.9 Active 99689 000 Problem Alcohol use disorder, severe, dependence F10.20 Active 18689067 Problem Methamphetamine use disorder, severe, 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 Active 694816022 Problem Morbid (severe) obesity due to excess calories E66 .01 Active 485157504 Problem Neuropathy G62.9 Active 516185913 Problem ED (erectile dysfunction) N52.9 Acti ve 693164106 Problem 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 Active 555639344 Problem Substance abuse F19.10 Active 6621 4007 Problem Personality disorder F60.9 Active 03771449 Problem HTN (hypertension) I10 Active 3 4964928 Problem Cannabis use disorder, severe, dependence F12.20 Active 26126879 Problem Ulcer of toe of right foot, unspecified ulcer stage L97.519 Active 848733166 Problem Amputated toe of right foot S98.131A Ac tive 050552201 Problem Hammer toe, unspecified laterality M20.40 Active 085146062 ALLERGIES No Information ENCOUNTERS Encounter Location Date Diagnosis [facility] [address] [id number] [address] [place] [phone] 17 Aug, 2019 [facility] [address] [facility] [id number] [address] [place] [phone] 13 Aug, 2019 [facility] [address] [id number] [address] [place] [id number] 13 Aug, 2019 [facility] [address] [facility] [id number] [address] [place] [phone] Aug, [facility] [address] [facility] [id number] [address] [place] [id number] 09 Aug, 2019 Chronic hepatitis C without hepatic coma B18.2 [facility] [address] [facility] [id number] [address] [place] [id number] 06 Aug, 2019 [facility] [address] [facility] [id number] [address] [place] [phone] 03 Aug, 2019 [facility] [address] [facility] [id number] [address] [place] [phone] Aug, Polyneuropathy G62.9 [facility] [address] [facility] [id number] [address] [place] [id number] 24 Jul, 2019 [facility] [address] [facility] [id number] [address] [place] [phone] 23 Jul, 2019 [facility] [address] [facility] [id number] [address] [place] [phone] 18 Jul, 2019 [facility] [address] [facility] [id number] [address] [place] [phone] 10 Jul, 2019 [facility] [address] [facility] [id number] [address] [place] [id number] 10 Jul, 2019 [facility] [address] [facility] [id number] [address] [place] [phone] 09 Jul, 2019 [facility] [address] [id number] [address] [place] [phone] 09 Jul, 2019 [facility] [address] [id number] [address] [place] [phone] 06 Jul, 2019 [facility] [address] [id number] [address] [place] [phone] Jul, [facility] [address] [id number] [address] [place] [phone] 04 Jul, 2019 Polyneuropathy G62.9 [facility] [address] [id number] [address] [place] [phone] Jun, 2019 [facility] [address] [id number] [address] [place] [phone] Jun, 2019 [facility] [address] [id number] [address] [place] [phone] Jun, 2019 [facility] [address] [id number] [address] [place] [phone] Jun, 2019 [facility] [address] [id number] [address] [place] [id number] 05 Jun, 2019 [facility] [address] [facility] [id number] [address] [place] [id number] 04 Jun, 2019 Polyneuropathy G62.9 [facility] [address] [id number] [address] [place] [phone] May, [facility] [address] [id number] [address] [place] [phone] May, Foot callus L84 [facility] [address] [id number] [address] [place] [phone] May, [facility] [address] [facility] [id number] [address] [place] [phone] May, [facility] [address] [id number] [address] [place] [id number] 10 May, 2019 [facility] [address] [id number] [address] [place] [phone] May, Polyneuropathy G62.9 ; HTN ( hypertension) I10 ; Schizoaffective disorder, depressive type F25.1 ; PAD (peripheral artery disease) I73.9 ; COPD (chronic obstructive pulmonary disease) J44.9 ; Amputated toe of right foot S98.131A ; Methamphetamine use disorder, severe, 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 and Type 2 diabetes mellitus with other diabetic neurological complication E11.49 [facility] [address] [id number] [address] [place] [phone] May, [facility] [address] [facility] [id number] [address] [place] [phone] May, [facility] [address] [facility] [id number] [address] [place] [phone] May, [facility] [address] [facility] [id number] [address] [place] [phone] May, [facility] [address] [facility] [id number] [address] [place] [phone] May, [facility] [address] [facility] [id number] [address] [place] [phone] May, Chronic hepatitis C without hepatic coma B18.2 and HTN (hypertension) I10 [facility] [address] [facility] [id number] [address] [place] [phone] May, Neuropathy G62.9 [facility] [address] [facility] [id number] [address] [place] [phone] Apr, [address] [place] [address] Apr, [facility] [address] [facility] [id number] [address] [place] [id number] Apr, [facility] [address] [facility] [id number] [address] [place] [phone] Apr, [facility] [address] [id number] [address] [place] [phone] Apr, [facility] [address] [id number] [address] [place] [phone] Apr, [facility] [address] [facility] [id number] [address] [place] [phone] Apr, [facility] [address] [id number] [address] [place] [phone] Apr, Ulcer of right foot, unspeci fied ulcer stage L97.519 ; Type 2 diabetes mellitus with other diabetic neurological complication E11.49 ; Onychomycosis B35.1 and Hammer toe, unspecified laterality M20.40 [facility] [address] [facility] [id number] [address] [place] [phone] Apr, [facility] [address] [facility] [id number] [address] [place] [phone] Apr, HTN (hypertension) I10 and U lcer of toe of right foot, unspecified ulcer stage L97.519 [facility] [address] [facility] [id number] [address] [place] [phone] Apr, [facility] [address] [facility] [id number] [address] [place] [id number] Apr, Schizoaffective disorder, de pressive type F25.1 ; Other oysterman (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.899 and Stimulant use disorder F15.90 [facility] [address] [facility] [id number] [address] [place] [phone] Apr, [facility] [address] [facility] [id number] [address] [place] [phone] Apr, [facility] [address] [facility] [id number] [address] [place] [phone] Apr, [facility] [address] [facility] [id number] [address] [place] [phone] Mar, Pre-ulcerative calluses L84 [facility] [address] [facility] [id number] [address] [place] [id number] Mar, HTN (hypertension) I10 ; DM neuro manif type II E11.49 ; Morbid (severe) obesity due to excess calories E66.01 and Polyneuropathy G62.9 [facility] [address] [facility] [id number] [address] [place] [phone] Mar, [facility] [address] [facility] [id number] [address] [place] [phone] Mar, [facility] [address] [facility] [id number] [address] [place] [phone] Mar, Onychomycosis B35.1 ; Callus of foot L84 and Hammer toe, unspecified laterality M20.40 [facility] [address] [facility] [id number] [address] [place] [id number] Mar, Neuropathy G62.9 [facility] [address] [facility] [id number] [address] [place] [phone] Mar, [facility] [address] [facility] [id number] [address] [place] [phone] Mar, [facility] [address] [facility] [id number] [address] [place] [phone] Mar, [facility] [address] [facility] [id number] [address] [place] [id number] Mar, Constipation, unspecified co nstipation type K59.00 [facility] [address] [id number] [address] [place] [phone] Mar, [facility] [address] [facility] [id number] [address] [place] [phone] Mar, [facility] [address] [facility] [id number] [address] [place] [id number] Mar, Chronic hepatitis C without hepatic coma B18.2 ; High risk medication use Z79.899 and Encounter for immunization Z23 [facility] [address] [facility] [id number] [address] [place] [phone] Mar, [facility] [address] [facility] [id number] [address] [place] [phone] Mar, Neuropathy G62.9 [facility] [address] [facility] [id number] [address] [place] [phone] Mar, High risk sexual behavior, u nspecified type Z72.51 [facility] [address] [facility] [id number] [address] [place] [phone] Feb, Callus of foot L84 [facility] [address] [facility] [id number] [address] [place] [phone] Feb, Callus of foot L84 [facility] [address] [facility] [id number] [address] [place] [phone] Feb, [facility] [address] [facility] [id number] [address] [place] [phone] Feb, [facility] [address] [facility] [id number] [place] [phone] Feb, Methamphetamine use disorder, severe, de pendence F15.20 ; Alcohol use disorder, severe, dependence F10.20 and Cannabis use disorder, severe, dependence F12.20 [facility] [address] [facility] [id number] [address] [place] [phone] Feb, Chronic hepatitis C without hepatic coma B18.2 [facility] [address] [facility] [id number] [address] Feb, Methamphetamine use disorder, severe, de pendence F15.20 ; Alcohol use disorder, severe, dependence F10.20 and Cannabis use disorder, severe, dependence F12.20 [facility] [address] [facility] [id number] [address] [place] [id number] Feb, [facility] [address] [facility] [id number] [address] [place] [phone] Feb, Chronic hepatitis C without hepatic coma B18.2 [facility] [address] [facility] [id number] [place] [phone] Feb, Methamphetamine use disorder, severe, de pendence F15.20 ; Alcohol use disorder, severe, dependence F10.20 and Cannabis use disorder, severe, dependence F12.20 [facility] [address] [facility] [id number] [address] [place] [phone] Feb, [facility] [address] [facility] [id number] [address] [place] [phone] Feb, [facility] [address] [facility] [id number] [address] [place] [phone] Feb, [facility] [address] [facility] [id number] [address] [place] [phone] Feb, [facility] [address] [facility] [id number] [address] [place] [id number] Feb, Neuropathy G62.9 [facility] [address] [place] [id number] [address] [place] [phone] Feb, Schizoaffective disorder, de pressive type F25.1 ; Other oysterman (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.899 and Stimulant use disorder F15.90 [facility] [address] [facility] [id number] [address] [place] [phone] Feb, Onychomycosis B35.1 and Neur opathy G62.9 [facility] [address] [facility] [id number] [address] [place] [phone] Feb, [facility] [address] [facility] [id number] [address] [place] [phone] Feb, [facility] [address] [facility] [id number] [address] [place] [phone] Feb, [facility] [address] [facility] [id number] [place] [phone] Feb, Methamphetamine use disorder, severe, de pendence F15.20 ; Alcohol use disorder, severe, dependence F10.20 and Cannabis use disorder, severe, dependence F12.20 [facility] [address] [facility] [id number] [address] [place] [phone] Feb, Chronic hepatitis C without hepatic coma B18.2 and Encounter for immunization Z23 [facility] [address] [facility] [id number] [address] [place] [phone] 30 Jan, 2019 [facility] [address] [facility] [id number] [address] [place] [phone] Jan, [facility] [address] [facility] [id number] [address] [place] [phone] Jan, [facility] [address] [place] [address] Jan, Methamphetamine use disorder, severe, de pendence F15.20 ; Alcohol use disorder, severe, dependence F10.20 and Cannabis use disorder, severe, dependence F12.20 [facility] [address] [facility] [id number] [address] [place] [phone] Jan, [facility] [address] [facility] [id number] [address] [place] [phone] Jan, [facility] [address] [facility] [id number] [address] [place] [phone] Jan, History of amputation Z89.9 [facility] [address] [facility] [id number] [address] [place] [phone] Jan, [facility] [address] [facility] [id number] [address] [place] [phone] Jan, [facility] [address] [facility] [id number] [address] [place] [phone] Jan, [facility] [address] [facility] [id number] [address] [place] [phone] Jan, [facility] [address] [facility] [id number] [address] [place] [phone] Jan, [facility] [address] [facility] [id number] [address] [place] [id number] 18 Jan, 2019 [facility] [address] [facility] [id number] [address] [place] [phone] 18 Jan, 2019 [facility] [address] [facility] [id number] [address] [place] [phone] 18 Jan, 2019 [facility] [address] [facility] [id number] [place] [phone] 18 Jan, 2019 Methamphetamine use disorder, severe, de pendence F15.20 ; Alcohol use disorder, severe, dependence F10.20 and Cannabis use disorder, severe, dependence F12.20 [facility] [address] [facility] [id number] [address] [place] [phone] 18 Jan, 2019 [facility] [address] [facility] [id number] [address] [place] [phone] 16 Jan, 2019 [facility] [address] [facility] [id number] [address] [place] [phone] 13 Jan, 2019 [facility] [address] [facility] [id number] [place] [phone] Jan, Methamphetamine use disorder, severe, de pendence F15.20 ; Alcohol use disorder, severe, dependence F10.20 and Cannabis use disorder, severe, dependence F12.20 [facility] [address] [facility] [id number] [place] [phone] 06 Jan, 2019 Methamphetamine use disorder, severe, de pendence F15.20 ; Cannabis use disorder, severe, dependence F12.20 and Alcohol use disorder, severe, dependence F10.20 [facility] [address] [facility] [id number] [address] [place] [id number] 06 Jan, 2019 Chronic hepatitis C without hepatic coma B18.2 [facility] [address] [facility] [id number] [address] [place] [phone] 05 Jan, 2019 Neuropathy G62.9 [facility] [address] [facility] [id number] [address] [place] [id number] Jan, [facility] [address] [facility] [id number] [address] [place] [phone] Jan, [facility] [address] [place] [id number] [address] [place] [phone] Jan, Chronic hepatitis C without hepatic coma B18.2 [facility] [address] [place] [id number] [address] [place] [phone] Dec, Right foot pain M79.671 [place] [address] [address] Dec, Schizoaffective disorder, de pressive type F25.1 ; Other assisted (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.899 and Stimulant use disorder F15.90 [place] [address] [address] Dec, [facility] [address] [address] Dec, Methamphetamine use disorder, severe, de pendence F15.20 ; Alcohol use disorder, severe, dependence F10.20 and Cannabis use disorder, severe, dependence F12.20 [place] [address] [address] Dec, [place] [address] [address] Dec, [facility] [address] [place] [id number] [address] [place] [id number] Dec, Ulcer of toe of right foot, unspecified ulcer stage L97.519 [facility] [address] [place] [id number] [address] [place] [phone] Dec, [facility] [address] [phone] Dec, Methamphetamine use disorder, severe, de pendence F15.20 ; Cannabis use disorder, severe, dependence F12.20 and Alcohol use disorder, severe, dependence F10.20 [place] [address] [place] [id number] [place] [phone] Dec, [facility] [id number] [place] [id number] Dec, Allergic contact dermatitis, unspecified trigger L23.9 and Ankle swelling, unspecified laterality M25.473 [facility] [address] [id number] [place] [phone] Dec, [facility] [address] [id number] [place] [phone] Dec, [facility] [address] [id number] Dec, Methamphetamine use disorder, severe, de pendence F15.20 ; Alcohol use disorder, severe, dependence F10.20 and Cannabis use disorder, severe, dependence F12.20 [facility] [address] [id number] Dec, [facility] [address] [id number] Dec, [place] [address] [id number] Dec, Diarrhea of presumed infecti ous origin R19.7 ; Chronic hepatitis C without hepatic coma B18.2 and Nail fungus B35.1 [facility] [address] [id number] [place] [phone] Dec, Neuropathy G62.9 [place] [address] [id number] [place] [phone] Dec, [place] [address] [place] [id number] [place] [phone] Nov, Schizoaffective disorder, de pressive type F25.1 ; Other oysterman (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.899 and Stimulant use disorder F15.90 [facility] [address] [id number] [place] [phone] Nov, [facility] [address] [place] [address] Nov, Substance abuse F19.10 [facility] [address] [facility] [id number] [address] [place] [phone] Nov, [facility] [address] [facility] [id number] [address] [place] [phone] Nov, Chronic hepatitis C without hepatic coma B18.2 [facility] [address] [facility] [id number] [address] [place] [phone] Nov, [facility] [address] [facility] [id number] [address] [place] [phone] Nov, Fatigue, unspecified type R5 3.83 [facility] [address] [facility] [id number] [address] [place] [id number] Nov, Schizoaffective disorder, de pressive type F25.1 ; Other assisted (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.899 and Stimulant use disorder F15.90 [facility] [address] [facility] [id number] [address] [place] [phone] Nov, [facility] [address] [facility] [id number] [address] [place] [phone] Nov, [facility] [address] [facility] [id number] [address] [place] [phone] Nov, [facility] [address] [facility] [id number] [address] [place] [id number] Oct, Neuropathy G62.9 [facility] [address] [facility] [id number] [address] [place] [id number] Oct, Prediabetes R73.03 ; 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.899 and Chronic hepatitis C without hepatic coma B18.2 [facility] [address] [facility] [id number] [address] [place] [phone] Oct, Schizoaffective disorder, de pressive type F25.1 and Other oysterman (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.899 [facility] [address] [id number] [address] [place] [phone] 20 Oct, 2018 [facility] [address] [id number] [address] [place] [phone] 14 Oct, 2018 Sore throat J02.9 and Acute non-recurrent frontal sinusitis J01.10 [facility] [address] [id number] [address] [place] [phone] 11 Oct, 2018 [facility] [address] [id number] [address] [place] [phone] 07 Oct, 2018 Acute URI J06.9 [facility] [address] [id number] [address] [place] [phone] Oct, [facility] [address] [facility] [id number] [address] [place] [phone] Oct, Schizoaffective disorder, de pressive type F25.1 [facility] [address] [facility] [id number] [address] [place] [phone] Oct, [facility] [address] [facility] [id number] [address] [place] [phone] Oct, Substance abuse F19.10 [facility] [address] [facility] [id number] [address] [place] [phone] Oct, Bronchitis J40 [address] [id number] [address] September, Back pain M54.9 [facility] [address] [id number] [address] [place] [phone] September, Schizoaffective disorder, de pressive type F25.1 [facility] [address] [facility] [id number] [address] [place] [phone] September, [facility] [address] [facility] [address] [place] [address] September, Substance abuse F19.10 [facility] [address] [facility] [id number] [address] [place] [phone] September, [facility] [address] [id number] [address] [place] [phone] September, Schizoaffective disorder, de pressive type F25.1 [facility] [address] [id number] [address] [place] [phone] September, Substance abuse F19.10 [facility] [address] [facility] [id number] [address] [place] [phone] September, [facility] [address] [facility] [id number] [address] [place] [phone] September, Substance abuse F19.10 [facility] [address] [facility] [id number] [address] [place] [phone] September, Encounter for Medicare ann l wellness exam Z00.00 ; Ulcer of right foot, unspecified ulcer stage L97.519 ; Type 2 diabetes mellitus with other diabetic neurological complication E11.49 ; COPD (chronic obstructive pulmonary disease) J44.9 ; PAD (peripheral artery disease) I73.9 ; Schizoaffective disorder, depressive type F25.1 and Routine adult health maintenance Z00.00 [facility] [address] [facility] [id number] [address] [place] [phone] September, Schizoaffective disorder, de pressive type F25.1 [facility] [address] [facility] [id number] [address] [place] [phone] September, [facility] [address] [facility] [id number] [address] [place] [phone] September, [facility] [address] [facility] [id number] [address] [place] [phone] September, Schizoaffective disorder, de pressive type F25.1 [facility] [address] [facility] [id number] [address] [place] [phone] Aug, [facility] [address] [facility] [id number] [address] [place] [phone] Aug, Rib pain on left side R07.81 and Closed fracture of multiple ribs of left side with routine healing, subsequent encounter S22.42XD [facility] [address] [facility] [id number] [address] [place] [phone] Aug, [facility] [address] [id number] [address] [place] [phone] Aug, [facility] [address] [facility] [id number] [address] [place] [phone] Jul, [facility] [address] [id number] [address] [place] [id number] Jul, [facility] [address] [facility] [id number] [address] [place] [phone] Jul, [facility] [address] [facility] [id number] [address] [place] [phone] Jul, Back pain M54.9 [facility] [address] [facility] [id number] [address] [place] [phone] Jul, Polyneuropathy in diseases c lassified elsewhere G63 [facility] [address] [facility] [id number] [address] [place] [id number] Jul, Constipation, unspecified co nstipation type K59.00 and Burn T30.0 [facility] [address] [facility] [id number] [address] [place] [phone] Jul, [facility] [address] [facility] [id number] [address] [place] [phone] Jun, 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 [facility] [address] [facility] [id number] [address] [place] [phone] Jun, Back pain M54.9 [facility] [address] [facility] [id number] [address] [place] [phone] Jun, 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 [facility] [address] [id number] [address] [place] [phone] Jun, [facility] [address] [id number] [address] [place] [phone] Jun, [facility] [address] [id number] [address] [place] [phone] Jun, [facility] [address] [id number] [address] [place] [phone] May, [facility] [address] [id number] [address] [place] [phone] May, Back pain M54.9 [facility] [address] [id number] [address] [place] [phone] May, [facility] [address] [facility] [id number] [address] [place] [phone] May, 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 ; Chronic hepatitis C without hepatic coma B18.2 and HTN (hypertension) I10 [facility] [address] [id number] [address] [place] [phone] Apr, Back pain M54.9 [facility] [address] [id number] [address] [place] [phone] Apr, [facility] [address] [id number] [address] [place] [phone] Apr, Polyneuropathy in diseases c lassified elsewhere G63 [facility] [address] [id number] [address] [place] [phone] Mar, Back pain M54.9 [facility] [address] [id number] [address] [place] [phone] Mar, [facility] [address] [facility] [id number] [address] [place] [phone] Mar, Back pain M54.9 [facility] [address] [id number] [address] [place] [phone] Mar, [facility] [address] [id number] [address] [place] [phone] Mar, [facility] [address] [id number] [address] [place] [phone] Mar, Polyneuropathy in diseases c lassified elsewhere G63 [facility] [address] [id number] [address] [place] [phone] Feb, Back pain M54.9 [facility] [address] [id number] [address] [place] [phone] Jan, Back pain M54.9 [facility] [address] [id number] [address] [place] [phone] Jan, [facility] [address] [id number] [address] [place] [phone] Jan, [facility] [address] [id number] [address] [place] [phone] Dec, Back pain M54.9 [facility] [address] [id number] [address] [place] [phone] Dec, [facility] [address] [id number] [address] [place] [phone] Dec, Upper respiratory tract infe ction, unspecified type J06.9 [facility] [address] [id number] [address] [place] [phone] Dec, [facility] [address] [id number] [address] [place] [phone] Dec, Acute suppurative otitis med ia of right ear without spontaneous rupture of tympanic membrane, recurrence not specified H66.001 and Acute nasopharyngitis J00 [facility] [address] [id number] [address] [place] [phone] Dec, Back pain M54.9 [facility] [address] [id number] [address] [place] [phone] Dec, Foot infection L08.9 and 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 [facility] [address] [id number] [address] [place] [phone] Nov, Cellulitis of toe of right f oot L03.031 ; Polyneuropathy in diseases classified elsewhere G63 and HTN (hypertension) I10 [facility] [address] [id number] [address] [place] [phone] Nov, [facility] [address] [id number] [address] [place] [phone] Nov, [facility] [address] [facility] [id number] [address] [place] [phone] Nov, Back pain M54.9 [facility] [address] [facility] [id number] [address] [place] [id number] Nov, Shortness of breath R06.02 [facility] [address] [id number] [address] [place] [phone] Nov, [facility] [address] [facility] [id number] [address] [place] [phone] Oct, [facility] [address] [id number] [address] [place] [id number] Oct, [facility] [address] [facility] [id number] [address] [place] [phone] Oct, [facility] [address] [id number] [address] [place] [phone] Oct, [facility] [address] [facility] [id number] [address] [place] [phone] Oct, [facility] [address] [facility] [id number] [address] [place] [phone] Oct, Back pain M54.9 [facility] [address] [facility] [id number] [address] [place] [phone] Oct, Back pain M54.9 [facility] [address] [id number] [address] [place] [phone] Oct, [facility] [address] [id number] [address] [place] [phone] September, [facility] [address] [id number] [address] [place] [phone] September, [facility] [address] [id number] [address] [place] [phone] September, [facility] [address] [id number] [address] [place] [phone] September, 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 and Hypotension, unspecified hypotension type I95.9 [facility] [address] [id number] [address] [place] [phone] September, [facility] [address] [id number] [address] [place] [phone] September, [facility] [address] [id number] [address] [place] [phone] September, Back pain M54.9 [facility] [address] [facility] [id number] [address] [place] [phone] Aug, [facility] [address] [id number] [address] [place] [phone] Aug, Acute cystitis with hematuri a N30.01 ; Ulcer of right foot, unspecified ulcer stage L97.519 ; HTN (hypertension) I10 ; COPD (chronic obstructive pulmonary disease) J44.9 and DM neuro manif type II E11.49 [facility] [address] [id number] [address] [place] [id number] Aug, Back pain M54.9 [facility] [address] [facility] [id number] [address] [place] [phone] Jul, [facility] [address] [phone] 14 Jul, 2017 Back pain M54.9 [facility] [address] [facility] [id number] [phone] Jul, [facility] [address] [phone] 09 Jul, 2017 DM neuro manif type II E11.4 9 and Ulcer of right foot, unspecified ulcer stage L97.519 [facility] [address] [id number] 19 Jun, 2017 [facility] [address] [id number] Jun, [facility] [address] [phone] May, 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 ; GERD (gastroesophageal reflux disease) K21.9 and PAD (peripheral artery disease) I73.9 [facility] [address] [address] May, Decubital ulcer L89.90 ; Nathalia betes E11.9 and GERD (gastroesophageal reflux disease) K21.9 [facility] [address] [phone] May, [facility] [address] [id number] Apr, [facility] [address] [address] Mar, [facility] [address] [address] Mar, [facility] [address] [phone] Feb, [facility] [address] [id number] Feb, [facility] [address] [facility] [id number] [address] [place] [phone] Jan, [facility] [address] [facility] [id number] [address] [place] [phone] Jan, HTN (hypertension) I10 [facility] [address] [facility] [id number] [address] [place] [phone] Jan, [facility] [address] [facility] [id number] [address] [place] [phone] Dec, Back pain M54.9 [facility] [address] [facility] [id number] [address] [place] [phone] Dec, Back pain M54.9 [facility] [address] [facility] [id number] [address] [place] [phone] Dec, Encounter for immunization Z 23 and Puncture wound of right foot, initial encounter S91.331A [facility] [address] [facility] [id number] [address] [place] [phone] Dec, [facility] [address] [facility] [id number] [address] [place] [phone] Nov, [facility] [address] [facility] [id number] [address] [place] [id number] Nov, COPD (chronic obstructive pu lmonary disease) J44.9 [facility] [address] [facility] [id number] [address] [place] [phone] Nov, [facility] [address] [facility] [id number] [address] [place] [phone] Oct, [facility] [address] [facility] [id number] [address] [place] [phone] Oct, [facility] [address] [place] [id number] [address] [place] [phone] September, Onychomycosis B35.1 and DM n euro manif type II E11.49 [facility] [address] [place] [id number] [address] [place] [phone] September, [facility] [address] [facility] [id number] [address] [place] [phone] Aug, [facility] [address] [facility] [id number] [address] [place] [phone] Jul, Sinusitis, unspecified chron icity, unspecified location J32.9 and Cough R05 [facility] [address] [facility] [id number] [address] [place] [phone] Jul, Back pain M54.9 [facility] [address] [facility] [id number] [address] [place] [id number] 14 Jun, 2016 Back pain M54.9 [facility] [address] [facility] [id number] [address] [place] [phone] 06 Jun, 2016 COPD (chronic obstructive pu lmonary disease) J44.9 [facility] [address] [facility] [id number] [address] [place] [phone] May, [facility] [address] [facility] [id number] [address] [place] [phone] May, [facility] [address] [facility] [id number] [address] [place] [phone] May, Back pain M54.9 [facility] [address] [facility] [id number] [address] [place] [phone] May, [facility] [address] [facility] [id number] [address] [place] [phone] May, [facility] [address] [facility] [id number] [address] [place] [phone] May, Diabetes E11.9 [facility] [address] [facility] [id number] [address] [place] [phone] May, Diabetes E11.9 ; GERD (gastr oesophageal [...] Need for hepatitis C screening test Z11.59 [facility] [address] [id number] [address] [place] [phone] 04 May, 2016 HTN (hypertension) I10 [facility] [address] [id number] [address] [place] [phone] 29 Apr, 2016 [facility] [address] [id number] [address] [place] [id number] Apr, [facility] [address] [id number] [address] [place] [phone] Apr, [facility] [address] [id number] [address] [place] [phone] Apr, [facility] [address] [id number] [address] [place] [phone] Apr, [facility] [address] [id number] [address] [place] [phone] Mar, [facility] [address] [id number] [address] [place] [phone] Mar, [facility] [address] [id number] [address] [place] [phone] Mar, [facility] [address] [id number] [address] [place] [phone] Mar, [facility] [address] [id number] [address] [place] [phone] Mar, Dental examination Z01.20 [facility] [address] [id number] [address] [place] [phone] 24 Feb, 2016 [facility] [address] [id number] [address] [place] [id number] Feb, [facility] [address] [id number] [address] [place] [phone] Feb, Back pain M54.9 [facility] [address] [facility] [id number] [address] [place] [phone] Jan, [facility] [address] [facility] [id number] [address] [place] [phone] Jan, [facility] [address] [phone] Dec, Diabetes E11.9 ; GERD (gastr oesophageal reflux disease) K21.9 ; ED (erectile dysfunction) N52.9 ; HTN (hypertension) I10 ; Insomnia G47.00 ; COPD (chronic obstructive pulmonary disease) J44.9 ; Neuropathy G62.9 and Bipolar depression F31.30 [facility] [address] [place] [id number] [address] [place] [phone] Dec, 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 and Onychomycosis B35.1 [facility] [id number] [place] [phone] Dec, [facility] [address] [place] [id number] [address] [place] [phone] Dec, [facility] [address] [place] [id number] [address] [place] [phone] Dec, [facility] [address] [place] [id number] [address] [place] [phone] Dec, [facility] [address] [place] [id number] [address] [place] [phone] Nov, [facility] [address] [facility] [id number] [address] [place] [phone] Nov, [facility] [address] [place] [id number] [address] [place] [phone] Oct, [facility] [address] [place] [id number] [address] [place] [phone] Oct, [facility] [address] [facility] [id number] [address] [place] [phone] 07 Oct, 2015 Back pain M54.9 [facility] [address] [facility] [id number] [address] [place] [phone] Oct, [facility] [address] [facility] [id number] [address] [place] [phone] Oct, [facility] [address] [facility] [id number] [address] [place] [phone] Oct, [facility] [address] [facility] [id number] [address] [place] [phone] Oct, HTN (hypertension) I10 [place] [address] [facility] [id number] [address] [place] [phone] Oct, Back pain M54.9 [place] [address] [facility] [id number] [address] [place] [phone] Oct, Chronic pain syndrome G89.4 [place] [address] [facility] [id number] [address] [place] [phone] September, Back pain M54.9 [place] [address] [facility] [id number] [address] [place] [phone] September, HTN (hypertension) I10 [place] [address] [place] [id number] [address] [place] [phone] Aug, Porokeratosis Q82.8 ; Onycho mycosis B35.1 and Type 2 diabetes mellitus with other diabetic neurological complication E11.49 [facility] [address] [facility] [id number] [address] [place] [id number] Aug, GERD (gastroesophageal reflu x disease) K21.9 ; Diabetes E11.9 ; HTN (hypertension) I10 ; Insomnia G47.00 ; Restless legs syndrome G25.81 ; COPD (chronic obstructive pulmonary disease) J44.9 ; Back pain M54.9 and Bipolar 1 disorder F31.9 [facility] [address] [facility] [id number] [address] [place] [phone] Aug, [facility] [address] [id number] [address] [place] [address], [place] [address] Aug, [facility] [address] [id number] [address] [place] [address], [place] [address] Aug, [facility] [address] [id number] [address] [place] [address], [place] [address] Aug, [facility] [address] [id number] [address] [place] [address], [place] [address] Jul, [facility] [address] [id number] [address] [place] [address], [place] [address] 31 Jul, 2015 [facility] [address] [id number] [address] [place] [address], [place] [address] 30 Jul, 2015 [facility] [address] [id number] [address] [place] [id number] 16 Jul, 2015 [facility] [address] [id number] [address] [place] [id number] 15 Jul, 2015 [facility] [address] [id number] [address] [place] [id number] Jul, [facility] [address] [facility] [id number] [address] [place] [id number] 17 Jun, 2015 Decubital ulcer L89.90 ; Nathalia betes E11.9 ; Back pain M54.9 ; HTN (hypertension) I10 and COPD (chronic obstructive pulmonary disease) J44.9 [facility] [address] [id number] [address] [place] [id number] Jun, [facility] [address] [id number] [address] [place] [phone] Jun, [facility] [address] [id number] [address] [place] [phone] Jun, [facility] [address] [id number] [address] [place] [id number] Jun, [place] [id number] [place] [id number] [address] [place] [address] Jun, Diabetes E11.9 ; Insomnia G4 7.00 ; Decubital ulcer L89.90 ; GERD (gastroesophageal reflux disease) K21.9 ; Back pain M54.9 ; Superficial fungus infection of skin B36.9 and HTN (hypertension) I10 [address] [place] [id number] [place] [id number] Jun, Dental examination Z01.20 [place] [address] [address] May, [place] [address] [address] May, [place] [address] [address] May, [place] [address] [address] May, Diabetes E11.9 ; HTN (hypert ension) I10 and Decubital ulcer L89.90 [place] [address] [address] May, HTN (hypertension) I10 ; Dec ubital ulcer L89.90 and Diabetes E11.9 [place] [address] [address] Apr, Diabetes E11.9 ; GERD (gastr oesophageal reflux disease) K21.9 ; Back pain M54.9 ; HTN (hypertension) I10 ; Restless legs syndrome G25.81 and Decubital ulcer L89.90 [place] [address] [address] Apr, [place] [address] [address] Apr, Diabetes E11.9 ; HTN (hypert ension) I10 ; Restless legs syndrome G25.81 ; GERD (gastroesophageal reflux disease) K21.9 and COPD (chronic obstructive pulmonary disease) J44.9 [place] [address] [address] Mar, [facility] [address] [address] Mar, [place] [address] [address] Mar, Diabetes E11.9 ; Abscess L02 .91 and Restless legs syndrome G25.81 [place] [address] [address] Mar, [place] [address] [address] Feb, GERD (gastroesophageal reflu x disease) K21.9 ; Back pain M54.9 ; ED (erectile dysfunction) N52.9 ; Diabetes E11.9 ; HTN (hypertension) I10 and Insomnia G47.00 [place] [address] [address] Feb, [place] [address] [address] Feb, [place] [address] [address] Jan, [place] [address] [address] 24 Jan, 2015 Diabetes 250.00 ; Nondepende nt cannabis abuse, continuous 305.21 ; Cough 786.2 ; Schizoaffective disorder, unspecified 295.70 ; Sciatica 724.3 ; Other, mixed, or unspecified nondependent drug abuse, unspecified 305.90 ; Chronic pain 338.29 ; GERD (gastroesophageal reflux disease) 530.81 and HTN (hypertension) 401.9 [place] [address] [address] Jan, [facility] [address] [place] [id number] [address] [place] [phone] Jan, [facility] [address] [place] [id number] [address] [place] [address] Jan, Chronic pain associated with significant psychosocial dysfunction 338.4 ; Diabetes mellitus without mention of complication, type I [juvenile type], uncontrolled 250.03 ; Benign essential hypertension 401.1 ; Schizoaffective disorder, unspecified 295.70 ; Wheezing 786.07 ; Ear ache 388.70 ; Cough 786.2 ; Sciatica 724.3 and Foot pain, bilateral 729.5 [facility] [address] [place] [id number] [address] [place] [phone] Dec, [facility] [address] [place] [id number] [address] [place] [id number] Dec, [facility] [address] [place] [id number] [place] [address] Dec, [facility] [address] [place] [id number] [address] [place] [phone] Dec, [facility] [address] [place] [id number] [address] [place] [phone] Dec, [facility] [address] [place] [id number] [address] [place] [phone] Nov, Elevated liver enzymes 790.5 [facility] [address] [place] [id number] [address] [place] [phone] Nov, [facility] [address] [place] [id number] [address] [place] [phone] Nov, [facility] [address] [place] [id number] [address] [place] [phone] Nov, [facility] [address] [place] [id number] [address] [place] [phone] Nov, Benign essential hypertensio n 401.1 ; Diabetes mellitus without mention of complication, type I [juvenile type], uncontrolled 250.03 and Nondependent cannabis abuse, continuous 305.21 [facility] [address] [id number] [address] [place] [id number] 19 Oct, 2014 Cellulitis 682.9 and Benign essential hypertension 401.1 [facility] [address] [id number] [address] [place] [id number] 08 Oct, 2014 [facility] [address] [id number] [address] [place] [id number] September, [facility] [address] [id number] [address] [place] [id number] September, [facility] [address] [id number] [address] [place] [phone] Aug, [facility] [address] [id number] [address] [place] [phone] Aug, [facility] [address] [id number] [address] [place] [phone] Aug, [facility] [address] [id number] [address] [place] [phone] Aug, [facility] [address] [id number] [address] [place] [phone] Jul, [facility] [address] [id number] [address] [place] [phone] Jul, [facility] [address] [id number] [address] [place] [phone] Jul, [facility] [address] [id number] [address] [place] [phone] Jul, [facility] [address] [id number] [address] [place] [phone] Jul, [facility] [address] [id number] [address] [place] [phone] Jul, [facility] [address] [id number] [address] [place] [phone] Jun, [facility] [address] [id number] [address] [place] [address], [place] [address] Jun, [facility] [address] [id number] [address] [place] [address], [place] [address] Jun, [facility] [address] [id number] [address] [place] [address], [place] [address] Jun, [facility] [address] [id number] [address] [place] [address], [place] [address] Jun, [facility] [address] [id number] [address] [place] [address], [place] [address] May, [facility] [address] [id number] [address] [place] [address], [place] [address] May, [facility] [address] [id number] [address] [place] [address], [place] [address] May, [facility] [address] [id number] [address] [place] [address], [place] [address] May, [facility] [address] [id number] [address] [place] [address], [place] [address] May, [facility] [address] [id number] [address] [place] [address], [place] [address] May, [facility] [address] [id number] [address] [place] [address], [place] [address] May, [facility] [address] [id number] [address] [place] [address], [place] [address] May, [facility] [address] [id number] [address] [place] [address], [place] [address] Apr, [facility] [address] [id number] [address] [place] [address], [place] [address] Apr, [facility] [address] [id number] [address] [place] [address], [place] [address] Apr, [facility] [address] [id number] [address] [place] [id number] Apr, [facility] [address] [id number] [address] [place] [address], [place] [address] Mar, [facility] [address] [id number] [address] [place] [address], [place] [address] Mar, [facility] [address] [id number] [address] [place] [address], [place] [address] Mar, [facility] [address] [id number] [address] [place] [address], [place] [address] Mar, [facility] [address] [id number] [address] [place] [address], [place] [address] Feb, [facility] [address] [id number] [address] [place] [address], [place] [address] Feb, [facility] [address] [id number] [address] [place] [address], [place] [address] Feb, [facility] [address] [id number] [address] [place] [address], [place] [address] Feb, [facility] [address] [id number] [address] [place] [address], [place] [address] Feb, [facility] [address] [id number] [address] [place] [address], [place] [address] Feb, [facility] [address] [id number] [address] [place] [address], [place] [address] Jan, [facility] [address] [id number] [address] [place] [id number] Jan, [facility] [address] [id number] [address] [place] [address], [place] [address] Jan, [facility] [address] [id number] [address] [place] [address], [place] [address] Jan, [facility] [address] [id number] [address] [place] [address], [place] [address] Dec, [facility] [address] [id number] [facility] [place] [address] Dec, [facility] [address] [id number] [facility] [place] [address] Dec, [facility] [address] [id number] [facility] [place] [address] Dec, [facility] [address] [id number] [facility] [place] [address] Dec, [facility] [address] [id number] [facility] [place] [address] Dec, [facility] [address] [id number] [address] [place] [address], [place] [address] Oct, [facility] [address] [id number] [address] [place] [address], [place] [address] Oct, [facility] [address] [id number] [address] [place] [address], [place] [address] September, [facility] [address] [id number] [address] [place] [address], [place] [address] September, [facility] [address] [id number] [address] [place] [address], [place] [address] September, [facility] [address] [id number] [address] [place] [address], [place] [address] September, [facility] [address] [id number] [address] [place] [address], [place] [address] September, [facility] [address] [id number] [address] [place] [address], [place] [address] September, [facility] [address] [id number] [address] [place] [address], [place] [address] Aug, [facility] [address] [id number] [address] [place] [address], [place] [address] Aug, [facility] [address] [id number] [address] [place] [address], [place] [address] Aug, [facility] [address] [id number] [facility] [place] [address] Aug, [facility] [address] [id number] [address] [place] [address], [place] [address] Jul, [facility] [address] [id number] [address] [place] [address], [place] [address] Jul, [facility] [address] [id number] [address] [place] [address], [place] [address] Jun, [facility] [address] [id number] [address] [place] [address], [place] [address] Jun, [facility] [address] [id number] [address] [place] [address], [place] [address] May, [facility] [address] [id number] [address] [place] [address], [place] [address] May, [facility] [address] [id number] [address] [place] [address], [place] [address] Jan, [facility] [address] [id number] [address] [place] [address], [place] [address] Dec, [facility] [address] [id number] [address] [place] [address], [place] [address] Jun, [facility] [address] [id number] [address] [place] [address], [place] [address] May, [facility] [address] [id number] [address] [place] [address], [place] [address] Nov, [facility] [address] [id number] [address] [place] [address], [place] [address] September, [facility] [address] [id number] [address] [place] [address], [place] [address] Aug, [facility] [address] [id number] [address] [place] [address], [place] [address] Aug, [facility] [address] [id number] [address] [place] [address] Aug, [facility] [address] [id number] [address] [place] [address] Aug, [facility] [address] [id number] [address] [place] [address] Nov, [facility] [address] [id number] [address] [place] [address] Oct, [facility] [address] [id number] [address] [place] [address] Jul, [facility] [address] [id number] [address] [place] [address] Feb, [facility] [address] [id number] [address] [place] [address] Feb, [facility] [address] [id number] [address] [place] [id number] Apr, [facility] [address] [id number] [address] [place] [id number] Apr, [facility] [address] [id number] [address] [place] [address] Feb, [facility] [address] [id number] [address] [place] [id number] Feb, [facility] [address] [id number] [address] [place] [address] Jul, IMMUNIZATIONS No Known Immunizations SOCIAL HISTORY [...]
--- OUTSIDE RECORDS SUMMARY | 2019-09-09 08:33 | XMS REPORT ---
Author Author Sahil BLEVINS Organization [facility] Address [address] [place] [address] Care Team Providers Care Writing Manager Name Role Phone YVES BLEVINS Unavailable PROBLEMS Type Condition ICD9-CM Code TYP01-FO Code Onset Dates Condition S tatus SNOMED Code Problem Restless legs syndrome G25.81 Active 288237711 Problem GERD (gastroesophageal reflux disease) K21.9 Active 388423236 Problem Sinusitis, unspecified chronicity, unspecified location J32.9 Active 93707600 Problem COPD (chronic obstructive pulmonary disease) J44.9 Active 11161536 Problem Ulcer of right foot, unspecified ulcer stage L97.5 19 Active 06145887 Problem DM neuro manif type II E11.49 Active 21483952 Problem Constipation, unspecified constipation type K59.00 Active 59071213 Problem Schizoaffective disorder, depressive type F25.1 Active 62815667 Problem PAD (peripheral artery disease) I73.9 Active 980245547 Problem Chronic hepatitis C without hepatic coma B18.2 Active 008026716 Problem Polyneuropathy G62.9 Active 10482 000 Problem Alcohol use disorder, severe, dependence F10.20 Active 95356910 Problem Methamphetamine use disorder, severe, 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 Active 774867244 Problem Morbid (severe) obesity due to excess calories E66 .01 Active 195958390 Problem Neuropathy G62.9 Active 487957782 Problem ED (erectile dysfunction) N52.9 Acti ve 829586326 Problem 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 Active 873686307 Problem Substance abuse F19.10 Active 6621 4007 Problem Personality disorder F60.9 Active 79988514 Problem HTN (hypertension) I10 Active 3 5852905 Problem Cannabis use disorder, severe, dependence F12.20 Active 44280526 Problem Ulcer of toe of right foot, unspecified ulcer stage L97.519 Active 641055656 Problem Amputated toe of right foot S98.131A Ac tive 405244762 Problem Hammer toe, unspecified laterality M20.40 Active 610512154 ALLERGIES No Information ENCOUNTERS Encounter Location Date Diagnosis [facility] [id number] [place] [address] Aug, [facility] [address] [facility] [id number] [place] [address] Jul, [facility] [address] [address] Jul, [facility] [address] [address] Jul, [facility] [address] [address] Jul, [facility] [address] [address] Jul, Polyneuropathy G62.9 [facility] [address] [address] Jun, [facility] [address] [address] Jun, [facility] [address] [address] Jun, [facility] [address] [address] Jun, [facility] [address] [address] Jun, [facility] [address] [address] Jun, Polyneuropathy G62.9 [facility] [address] [address] May, [facility] [address] [address] May, Foot callus L84 [place] [address] [address] May, [facility] [address] [address] May, [facility] [address] [address] May, [facility] [address] [address] May, Polyneuropathy G62.9 ; HTN (hypertension ) I10 ; Schizoaffective disorder, depressive type F25.1 ; PAD (peripheral artery disease) I73.9 ; COPD (chronic obstructive pulmonary disease) J44.9 ; Amputated toe of right foot S98.131A ; Methamphetamine use disorder, severe, 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 and Type 2 diabetes mellitus with other diabetic neurological complication E11.49 [place] [address] [address] May, [facility] [address] [address] May, [facility] [address] [address] May, [facility] [address] [address] May, [facility] [address] [address] May, [place] [address] [address] May, Chronic hepatitis C without hepatic coma B18.2 and HTN (hypertension) I10 [facility] [address] [address] May, Neuropathy G62.9 [facility] [address] [address] Apr, [address] [place] [address] Apr, [facility] [address] [address] Apr, [facility] [address] [address] Apr, [facility] [address] [address] Apr, [facility] [address] [address] Apr, [facility] [address] [address] Apr, [facility] [address] [address] Apr, Ulcer of right foot, unspecified ulcer s tage L97.519 ; Type 2 diabetes mellitus with other diabetic neurological complication E11.49 ; Onychomycosis B35.1 and Hammer toe, unspecified laterality M20.40 [place] [address] [address] Apr, [place] [address] [address] Apr, HTN (hypertension) I10 and Ulcer of toe of right foot, unspecified ulcer stage L97.519 [place] [address] [address] Apr, [place] [address] [address] Apr, Schizoaffective disorder, depressive typ e F25.1 ; Other shelter (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.899 and Stimulant use disorder F15.90 [place] [address] [address] Apr, [place] [address] [address] Apr, [place] [address] [address] Apr, [facility] [address] [address] Mar, Pre-ulcerative calluses L84 [facility] [address] [address] Mar, HTN (hypertension) I10 ; DM neuro manif type II E11.49 ; Morbid (severe) obesity due to excess calories E66.01 and Polyneuropathy G62.9 [place] [address] [address] Mar, [place] [address] [address] Mar, [place] [address] [address] Mar, Onychomycosis B35.1 ; Callus of foot L84 and Hammer toe, unspecified laterality M20.40 [place] [address] [address] Mar, Neuropathy G62.9 [place] [address] [address] Mar, [place] [address] [address] Mar, [place] [address] [address] Mar, [facility] [address] [facility] [id number] [address] [place] [address] Mar, Constipation, unspecified co nstipation type K59.00 [facility] [address] [address] Mar, [place] [address] [address] Mar, [place] [address] [address] Mar, Chronic hepatitis C without hepatic coma B18.2 ; High risk medication use Z79.899 and Encounter for immunization Z23 [place] [address] [address] Mar, [facility] [address] [address] Mar, Neuropathy G62.9 [facility] [address] [facility] [id number] [address] [id number] Mar, High risk sexual behavior, u nspecified type Z72.51 [place] [address] [place] [address] Feb, Callus of foot L84 [place] [address] [place] [address] Feb, Callus of foot L84 [place] [address] [address] Feb, [place] [address] [address] Feb, [facility] [place] [address] [place] [address] Feb, Methamphetamine use disorder, severe, 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 ; Alcohol use disorder, severe, dependence F10.20 and Cannabis use disorder, severe, dependence F12.20 [place] [address] [address] Feb, Chronic hepatitis C without hepatic coma B18.2 [facility] [place] [address] [place] [id number] Feb, Methamphetamine use disorder, severe, 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 ; Alcohol use disorder, severe, dependence F10.20 and Cannabis use disorder, severe, dependence F12.20 [facility] [address] [address] Feb, [place] 4[address] Feb, Chronic hepatitis C without hepatic coma B18.2 [facility] [place] [address] [place], [place] [address] Feb, Methamphetamine use disorder, severe, 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 ; Alcohol use disorder, severe, dependence F10.20 and Cannabis use disorder, severe, dependence F12.20 [place] [address] [id number] Feb, [place] [address] [place] [address] Feb, [place] [address] [place] [address] Feb, [place] [address] [place] [address] Feb, [place] [address] [place] [address] Feb, Neuropathy G62.9 [place] [address] Feb, Schizoaffective disorder, depressive typ e F25.1 ; Other termite treater helper (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.899 and Stimulant use disorder F15.90 [place] [address] Feb, Onychomycosis B35.1 and Neuropathy G62.9 [place] [address] [address] Feb, [place] [address] [id number] Feb, [place] [address] [address] Feb, [place] [id number] Feb, Methamphetamine use disorder, severe, 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 ; Alcohol use disorder, severe, dependence F10.20 and Cannabis use disorder, severe, dependence F12.20 [place] [address] Feb, Chronic hepatitis C without hepatic coma B18.2 and Encounter for immunization Z23 [place] [address] [id number] Jan, [address] [place] [address] Jan, [facility] [address] [address] Jan, [facility] [place] [address] [place] [address] Jan, Methamphetamine use disorder, severe, 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 ; Alcohol use disorder, severe, dependence F10.20 and Cannabis use disorder, severe, dependence F12.20 [facility] [address] [address] 24 Jan, 2019 [facility] [address] [address] Jan, [facility] [address] [address] Jan, History of amputation Z89.9 [facility] [address] [facility] [id number] [address] [place] [address] Jan, [facility] [address] [address] Jan, [facility] [address] [address] Jan, [facility] [address] [address] Jan, [facility] [address] [address] Jan, [facility] [address] [address] Jan, [facility] [address] [address] Jan, [facility] [address] [address] Jan, [facility] [place] [address] [place] [address] Jan, Methamphetamine use disorder, severe, 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 ; Alcohol use disorder, severe, dependence F10.20 and Cannabis use disorder, severe, dependence F12.20 [place] [address] [address] 18 Jan, 2019 [place] [address] [address] 16 Jan, 2019 [place] [address] [id number] 13 Jan, 2019 [facility] [place] [address] [address] Jan, Methamphetamine use disorder, severe, 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 ; Alcohol use disorder, severe, dependence F10.20 and Cannabis use disorder, severe, dependence F12.20 [facility] [place] [address] [place] [address] Jan, Methamphetamine use disorder, severe, 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 ; Cannabis use disorder, severe, dependence F12.20 and Alcohol use disorder, severe, dependence F10.20 [place] [address] [address] Jan, Chronic hepatitis C without hepatic coma B18.2 [place] [address] [address] Jan, Neuropathy G62.9 [place] [address] [address] Jan, [place] [address] [address] Jan, [place] [address] [address] Jan, Chronic hepatitis C without hepatic coma B18.2 [place] [address] [address] Dec, Right foot pain M79.671 [place] [id number] Dec, Schizoaffective disorder, depressive typ e F25.1 ; Other termite treater helper (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.899 and Stimulant use disorder F15.[address] [address] Dec, [facility] [place] [address] [place] [address] Dec, Methamphetamine use disorder, severe, 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 ; Alcohol use disorder, severe, dependence F10.20 and Cannabis use disorder, severe, dependence F12.20 [place] [address] [address] Dec, [place] [address] [address] Dec, [facility] [place] [address] [address] [address] Dec, Ulcer of toe of right foot, unspecified ulcer stage L97.519 [place] [address] [address] Dec, [facility] [place] [facility] [address] Dec, Methamphetamine use disorder, severe, 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 ; Cannabis use disorder, severe, dependence F12.20 and Alcohol use disorder, severe, dependence F10.20 [place] [address] [address] Dec, [facility] [id number] [place] [address] Dec, Allergic contact dermatitis, unspecified trigger L23.9 and Ankle swelling, unspecified laterality M25.473 [place] [address] [address] Dec, [place] [address] [address] Dec, [facility] [place] [address] [place] [address] Dec, Methamphetamine use disorder, severe, 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 ; Alcohol use disorder, severe, dependence F10.20 and Cannabis use disorder, severe, dependence F12.20 [address] [address] [address] Dec, [place] [address] [address] Dec, [place] [address] [address] Dec, Diarrhea of presumed infectious origin R 19.7 ; Chronic hepatitis C without hepatic coma B18.2 and Nail fungus B35.1 [place] [address] [address] Dec, Neuropathy G62.9 [place] [address] [address] Dec, [place] [address] [address] Nov, Schizoaffective disorder, depressive typ e F25.1 ; Other termite treater helper (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.899 and Stimulant use disorder F15.90 [place] [address] [address] Nov, [place] [address] [place] [address] Nov, Substance abuse F19.10 [place] [address] [address] Nov, [place] [address] [address] Nov, Chronic hepatitis C without hepatic coma B18.2 [place] [address] [address] Nov, [place] [address] [address] Nov, Fatigue, unspecified type R53.[address] [address] Nov, Schizoaffective disorder, depressive typ e F25.1 ; Other shelter (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.899 and Stimulant use disorder F15.90 [place] [address] [address] Nov, [facility] [address] [address] Nov, [facility] [address] [address] Nov, [facility] [address] [address] Oct, Neuropathy G62.9 [facility] [address] [address] Oct, Prediabetes R73.03 ; Other shelter (cu rrent) drug therapy Z79.899 and Chronic hepatitis C without hepatic coma B18.2 [place] [address] [address] Oct, Schizoaffective disorder, depressive typ e F25.1 and Other termite treater helper (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.899 [place] [address] [address] Oct, [facility] [address] [address] 14 Oct, 2018 Sore throat J02.9 and Acute non-recurrent frontal sinusitis J01.10 [facility] [address] [address] Oct, [facility] [id number] [place] [address] 07 Oct, 2018 Acute URI J06.9 [facility] [address] [address] Oct, [facility] [address] [address] Oct, Schizoaffective disorder, depressive typ e F25.1 [facility] [address] [address] Oct, [facility] [address] [address] Oct, Substance abuse F19.10 [facility] [address] [facility] [id number] [address] [place] [address] Oct, Bronchitis J40 [facility] [address] [facility] [address] [place] [address] September, Back pain M54.9 [facility] [id number] [place] [address] September, Schizoaffective disorder, depressive typ e F25.1 [facility] [id number] [place] [address] September, [facility] [address] [facility] [address] [place] [address] September, Substance abuse F19.10 [facility] [id number] [place] [address] September, [facility] [id number] [place] [address] September, Schizoaffective disorder, depressive typ e F25.1 [facility] [id number] [place] [address] September, Substance abuse F19.10 [facility] [id number] [place] [address] September, [facility] [address] [place] [address] September, Substance abuse F19.10 [facility] [id number] [place] [address] September, Encounter for Medicare annual wellness e xam Z00.00 ; Ulcer of right foot, unspecified ulcer stage L97.519 ; Type 2 diabetes mellitus with other diabetic neurological complication E11.49 ; COPD (chronic obstructive pulmonary disease) J44.9 ; PAD (peripheral artery disease) I73.9 ; Schizoaffective disorder, depressive type F25.1 and Routine adult health maintenance Z00.00 [facility] [address] [address] September, Schizoaffective disorder, depressive typ e F25.1 [facility] [address] [address] September, [facility] [address] [address] September, [facility] [address] [address] September, Schizoaffective disorder, depressive typ e F25.1 [facility] [address] [address] Aug, [facility] [address] [place] [address] Aug, Rib pain on left side R07.81 and Closed fracture of multiple ribs of left side with routine healing, subsequent encounter S22.42XD [place] [address] [address] Aug, [facility] [address] [address] Aug, [place] [address] [address] Jul, [facility] [address] [address] Jul, [facility] [address] [address] Jul, [facility] [address] [address] Jul, Back pain M54.9 [place] [address] [address] Jul, Polyneuropathy in diseases classified el sewhere G63 [facility] [address] [facility] [id number] [place] [address] Jul, Constipation, unspecified co nstipation type K59.00 and Burn T30.0 [facility] [address] [address] Jul, [facility] [address] [address] Jun, 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 [facility] [address] [address] Jun, Back pain M54.9 [facility] [address] [address] Jun, 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 [facility] [address] [address] Jun, [facility] [address] [address] Jun, [facility] [address] [address] Jun, [facility] [address] [address] May, [facility] [address] [address] May, Back pain M54.9 [facility] [address] [address] May, [facility] [address] [address] May, 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 ; Chronic hepatitis C without hepatic coma B18.2 and HTN (hypertension) I10 [facility] [address] [address] Apr, Back pain M54.9 [facility] [address] [address] Apr, [facility] [address] [address] Apr, Polyneuropathy in diseases classified el [facility] G63 [facility] [id number] [place] [address] Mar, Back pain M54.9 [facility] [id number] [place] [address] Mar, [facility] [address] [address] Mar, Back pain M54.9 [facility] [id number] [place] [address] Mar, [facility] [address] [address] Mar, [facility] [id number] [place] [address] Mar, Polyneuropathy in diseases classified el sewhere G63 [facility] [address] [address] Feb, Back pain M54.9 [facility] [address] [address] Jan, Back pain M54.9 [facility] [address] [address] Jan, [facility] [address] [address] Jan, [facility] [address] [address] Dec, Back pain M54.9 [facility] [address] [address] Dec, [facility] [address] [address] Dec, Upper respiratory tract infection, unspe cified type J06.9 [facility] [address] [address] Dec, [facility] [address] [facility] [id number] [address] [place] [address] Dec, Acute suppurative otitis med ia of right ear without spontaneous rupture of tympanic membrane, recurrence not specified H66.001 and Acute nasopharyngitis J00 [facility] [address] [address] Dec, Back pain M54.9 [facility] [address] [address] Dec, Foot infection L08.9 and Type 2 diabetes mellitus with other diabetic neurological complication E11.49 [place] [address] [address] Nov, Cellulitis of toe of right foot L03.031 ; Polyneuropathy in diseases classified elsewhere G63 and HTN (hypertension) I10 [facility] [address] [address] Nov, [facility] [address] [address] Nov, [facility] [address] [address] Nov, Back pain M54.9 [facility] [address] [address] Nov, Shortness of breath R06.02 [facility] [address] [address] Nov, [facility] [address] [address] Oct, [facility] [address] [address] Oct, [facility] [address] [address] Oct, [facility] [address] [address] Oct, [facility] [id number] [place] [address] Oct, [facility] [address] [address] Oct, Back pain M54.9 [facility] [address] [address] Oct, Back pain M54.9 [facility] [address] [address] Oct, [facility] [address] [address] September, [facility] [address] [address] September, [facility] [address] [address] September, [facility] [address] [address] September, 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 and Hypotension, unspecified hypotension type I95.9 [facility] [address] [address] September, [facility] [address] [address] September, [facility] [address] [address] [address] September, Back pain M54.9 [facility] [address] [address] Aug, [facility] [address] [address] Aug, Acute cystitis with hematuria N30.01 ; U lcer of right foot, unspecified ulcer stage L97.519 ; HTN (hypertension) I10 ; COPD (chronic obstructive pulmonary disease) J44.9 and DM neuro manif type II E11.49 [facility] [address] [address] Aug, Back pain M54.9 [facility] [address] [address] Jul, [facility] [address] [address] Jul, Back pain M54.9 [facility] [address] [address] Jul, [facility] [address] [address] Jul, DM neuro manif type II E11.49 and Ulcer of right foot, unspecified ulcer stage L97.519 [place] [address] [address] Jun, [facility] [address] [address] Jun, [facility] [address] [address] May, 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 ; GERD (gastroesophageal reflux disease) K21.9 and PAD (peripheral artery disease) I73.9 [place] [address] [address] May, Decubital ulcer L89.90 ; Diabetes E11.9 and GERD (gastroesophageal reflux disease) K21.9 [facility] [address] [address] May, [facility] [address] [address] Apr, [facility] [address] [address] Mar, [place] [address] [address] Mar, [facility] [address] [address] Feb, [facility] [id number] [place] [address] Feb, [facility] [address] [address] Jan, [facility] [address] [address] Jan, HTN (hypertension) I10 [facility] [address] [address] Jan, [facility] [address] [address] Dec, Back pain M54.9 [facility] [address] [address] Dec, Back pain M54.9 [facility] [address] [facility] [id number] [place] [address] Dec, Encounter for immunization Z 23 and Puncture wound of right foot, initial encounter S91.331A [facility] [address] [address] Dec, [place] [address] [address] Nov, [place] [address] [address] Nov, COPD (chronic obstructive pulmonary dise ase) J44.9 [facility] [address] [address] Nov, [facility] [address] [address] Oct, [place] [address] [address] Oct, [place] [address] [address] September, Onychomycosis B35.1 and DM neuro manif t ype II E11.49 [place] [address] [address] September, [place] [address] [address] Aug, [place] [address] [address] Jul, Sinusitis, unspecified chronicity, unspe cified location J32.9 and Cough R05 [place] [address] [address] Jul, Back pain M54.9 [place] [address] [address] 14 Jun, 2016 Back pain M54.9 [place] [address] [address] 06 Jun, 2016 COPD (chronic obstructive pulmonary dise ase) J44.9 [place] [address] [address] May, [place] [address] [address] May, [place] [address] [address] May, Back pain M54.9 [place] [address] [address] May, [place] [address] [address] May, [place] [address] [address] May, Diabetes E11.9 [place] [address] [address] 11 May, 2016 Diabetes E11.9 ; GERD [...] Need for hepatitis C screening test Z11.59 [facility] [address] [address] May, HTN (hypertension) I10 [facility] [address] [address] Apr, [facility] [address] [address] Apr, [facility] [address] [address] Apr, [facility] [address] [address] Apr, [facility] [address] [address] Apr, [facility] [address] [address] Mar, [facility] [address] [address] Mar, [facility] [address] [address] Mar, [facility] [address] [address] Mar, [facility] [address] [address] Mar, Dental examination Z01.20 [facility] [address] [address] Feb, [facility] [address] [address] Feb, [facility] [address] [address] Feb, Back pain M54.9 [facility] [address] [address] Jan, [facility] [address] [address] Jan, [facility] [address] [address] Dec, Diabetes E11.9 ; GERD (gastroesophageal reflux disease) K21.9 ; ED (erectile dysfunction) N52.9 ; HTN (hypertension) I10 ; Insomnia G47.00 ; COPD (chronic obstructive pulmonary disease) J44.9 ; Neuropathy G62.9 and Bipolar depression F31.30 [facility] [address] [address] Dec, 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 and Onychomycosis B35.1 [facility] [address] [address] Dec, [facility] [address] [address] Dec, [facility] [address] [address] Dec, [facility] [address] [address] Dec, [facility] [address] [address] Nov, [facility] [address] [address] Nov, [facility] [address] [address] Oct, [facility] [address] [address] Oct, [facility] [address] [address] Oct, Back pain M54.9 [facility] [address] [address] Oct, [facility] [address] [address] Oct, [facility] [address] [address] Oct, [place] [address] [address] Oct, HTN (hypertension) I10 [place] [address] [address] Oct, Back pain M54.9 [place] [address] [address] Oct, Chronic pain syndrome G89.4 [place] [address] [address] September, Back pain M54.9 [place] [address] [address] September, HTN (hypertension) I10 [place] [address] [address] Aug, Porokeratosis Q82.8 ; Onychomycosis B35. 1 and Type 2 diabetes mellitus with other diabetic neurological complication E11.[address] [address] Aug, GERD (gastroesophageal reflux disease) K 21.9 ; Diabetes E11.9 ; HTN (hypertension) I10 ; Insomnia G47.00 ; Restless legs syndrome G25.81 ; COPD (chronic obstructive pulmonary disease) J44.9 ; Back pain M54.9 and Bipolar 1 disorder F31.9 [place] [address] [address] Aug, [place] [address] [address] Aug, [address] [address] Aug, [place] [address] [address] Aug, [facility] [id number] [place] [address] Jul, [facility] [id number] [place] [address] Jul, [facility] [id number] [place] [address] 30 Jul, 2015 [facility] [address] [address] 16 Jul, 2015 [facility] [address] [address] 15 Jul, 2015 [facility] [address] [address] Jul, [facility] [id number] [place] [address] 17 Jun, 2015 Decubital ulcer L89.90 ; Diabetes E11.9 ; Back pain M54.9 ; HTN (hypertension) I10 and COPD (chronic obstructive pulmonary disease) J44.9 [facility] [id number] [place] [address] Jun, [facility] [address] [address] Jun, [facility] [address] [address] Jun, [facility] [address] [address] Jun, [facility] [address] [address] Jun, Diabetes E11.9 ; Insomnia G47.00 ; Decub ital ulcer L89.90 ; GERD (gastroesophageal reflux disease) K21.9 ; Back pain M54.9 ; Superficial fungus infection of skin B36.9 and HTN (hypertension) I10 [facility] [id number] [place] [id number] 02 Jun, 2015 Dental examination Z01.20 [place] [address] [address] May, [facility] [address] [address] May, [facility] [address] [address] May, [place] [address] [address] May, Diabetes E11.9 ; HTN (hypertension) I10 and Decubital ulcer L89.90 [place] [address] [address] May, HTN (hypertension) I10 ; Decubital ulcer L89.90 and Diabetes E11.9 [place] [address] [address] 30 Apr, 2015 Diabetes E11.9 ; GERD (gastroesophageal reflux disease) K21.9 ; Back pain M54.9 ; HTN (hypertension) I10 ; Restless legs syndrome G25.81 and Decubital ulcer L89.90 [place] [address] [address] Apr, [place] [address] [address] Apr, Diabetes E11.9 ; HTN (hypertension) I10 ; Restless legs syndrome G25.81 ; GERD (gastroesophageal reflux disease) K21.9 and COPD (chronic obstructive pulmonary disease) J44.9 [place] [address] [address] Mar, [place] [address] [address] Mar, [place] [address] [address] Mar, Diabetes E11.9 ; Abscess L02.91 and Rest less legs syndrome G25.81 [place] [address] [address] Mar, [facility] [address] [address] Feb, GERD (gastroesophageal reflux disease) K 21.9 ; Back pain M54.9 ; ED (erectile dysfunction) N52.9 ; Diabetes E11.9 ; HTN (hypertension) I10 and Insomnia G47.00 [place] [address] [address] Feb, [place] [address] [address] Feb, [place] [address] [address] Jan, [place] [address] [address] Jan, Diabetes 250.00 ; Nondependent cannabis abuse, continuous 305.21 ; Cough 786.2 ; Schizoaffective disorder, unspecified 295.70 ; Sciatica 724.3 ; Other, mixed, or unspecified nondependent drug abuse, unspecified 305.90 ; Chronic pain 338.29 ; GERD (gastroesophageal reflux disease) 530.81 and HTN (hypertension) 401.9 [place] [address] [address] Jan, [place] [address] [address] Jan, [place] [address] [address] Jan, Chronic pain associated with significant psychosocial dysfunction 338.4 ; Diabetes mellitus without mention of complication, type I [juvenile type], uncontrolled 250.03 ; Benign essential hypertension 401.1 ; Schizoaffective disorder, unspecified 295.70 ; Wheezing 786.07 ; Ear ache 388.70 ; Cough 786.2 ; Sciatica 724.3 and Foot pain, bilateral 729.5 [place] [address] [address] Dec, [place] [address] [address] Dec, [facility] [id number] [place] [address] Dec, [facility] [id number] [place] [address] Dec, [facility] [address] [address] Dec, [facility] [address] [address] Nov, Elevated liver enzymes 790.5 [facility] [id number] [place] [address] Nov, [facility] [address] [address] Nov, [facility] [address] [address] Nov, [facility] [address] [address] Nov, Benign essential hypertension 401.1 ; Di abetes mellitus without mention of complication, type I [juvenile type], uncontrolled 250.03 and Nondependent cannabis abuse, continuous 305.21 [facility] [id number] [place] [address] Oct, Cellulitis 682.9 and Benign essential hy pertension 401.1 [facility] [address] [address] Oct, [facility] [id number] [place] [address] September, [facility] [address] [address] September, [facility] [address] [address] Aug, [facility] [address] [address] Aug, [facility] [address] [id number] [place] [address] 14 Aug, 2014 [facility] [address] [id number] [place] [address] 13 Aug, 2014 [facility] [address] [id number] [place] [address] Jul, [facility] [address] [id number] [place] [address] Jul, [facility] [address] [id number] [place] [address] Jul, [facility] [address] [id number] [place] [address] Jul, [facility] [address] [id number] [place] [address] Jul, [facility] [address] [id number] [place] [address] Jul, [facility] [address] [id number] [place] [address] Jun, [facility] [address] [id number] [place] [address] Jun, [facility] [address] [id number] [place] [address] Jun, [facility] [address] [id number] [place] [address] Jun, [facility] [address] [id number] [place] [address] Jun, [facility] [address] [id number] [place] [address] May, [facility] [address] [id number] [place] [address] May, [facility] [address] [id number] [place] [address] May, [facility] [address] [id number] [place] [address] May, [facility] [address] [id number] [place] [address] May, [facility] [address] [id number] [place] [address] May, [facility] [address] [id number] [place] [address] May, [facility] [address] [id number] [place] [address] May, [facility] [address] [facility] [id number] [place] [address] Apr, [facility] [address] [id number] [place] [address] Apr, [facility] [address] [id number] [place] [address] Apr, [facility] [address] [id number] [place] [address] Apr, [facility] [address] [id number] [place] [address] Mar, [facility] [address] [id number] [place] [address] Mar, [facility] [address] [id number] [place] [address] Mar, [facility] [address] [id number] [place] [address] Mar, [facility] [address] [id number] [place] [address] Feb, [facility] [address] [id number] [place] [address] Feb, [facility] [address] [id number] [place] [address] Feb, [facility] [address] [id number] [place] [address] Feb, [facility] [address] [id number] [place] [address] Feb, [facility] [address] [id number] [place] [address] Feb, [facility] [address] [facility] [id number] [place] [address] Jan, [facility] [address] [id number] [place] [address] Jan, [facility] [address] [id number] [place] [address] Jan, [facility] [address] [id number] [place] [address] Jan, [facility] [address] [id number] [place] [address] Dec, [facility] [address] [id number] [place] [address] Dec, [facility] [address] [id number] [place] [address] Dec, [facility] [address] [id number] [place] [address] Dec, [facility] [address] [id number] [place] [address] Dec, [facility] [address] [id number] [place] [address] Dec, [facility] [address] [id number] [place] [address] Oct, [facility] [address] [id number] [place] [address] Oct, [facility] [address] [id number] [place] [address] September, [facility] [address] [id number] [place] [address] September, [facility] [address] [id number] [place] [address] September, [facility] [address] [id number] [place] [address] September, [facility] [address] [id number] [place] [address] September, [facility] [address] [id number] [place] [address] September, [facility] [address] [id number] [place] [address] Aug, [facility] [address] [id number] [place] [address] Aug, [facility] [address] [id number] [place] [address] Aug, [facility] [address] [id number] [place] [address] Aug, [facility] [address] [id number] [place] [address] Jul, [facility] [address] [id number] [place] [address] Jul, [facility] [address] [id number] [place] [address] Jun, [facility] [address] [id number] [place] [address] Jun, [facility] [address] [id number] [place] [address] May, [facility] [address] [id number] [place] [address] May, [facility] [address] [id number] [place] [address] Jan, [facility] [address] [id number] [place] [address] Dec, [facility] [address] [id number] [place] [address] Jun, [facility] [address] [id number] [place] [address] May, [facility] [address] [id number] [place] [address] Nov, [facility] [address] [id number] [place] [address] September, [facility] [address] [id number] [place] [address] Aug, [facility] [address] [id number] [place] [address] Aug, [facility] [address] [id number] [place] [address] Aug, [facility] [id number] [place] [address] Aug, [facility] [address] [id number] [place] [address] Nov, [facility] [id number] [place] [address] Oct, [facility] [address] [id number] [place] [address] Jul, [facility] [id number] [place] [address] Feb, [facility] [id number] [place] [address] Feb, [facility] [id number] [place] [address] Apr, [facility] [address] [id number] [place] [address] Apr, [facility] [id number] [place] [address] Feb, [facility] [id number] [place] [address] Feb, [facility] [address] [id number] [place] [address] Jul, IMMUNIZATIONS No Known Immunizations SOCIAL HISTORY Never Assessed REASON FOR VISIT Medication question PLAN OF CARE VITAL SIGNS MEDICATIONS Medication Instructions Dosage Frequency Start Date End Date Duration S palma Hydrocodone-Ibuprofen 7.5-200 MG Orally 3 times a day 1 tablet as n eeded 8h Jul, 28 days Active RESULTS No Results PROCEDURES [...]
--- OUTSIDE RECORDS SUMMARY | 2019-09-09 08:33 | XMS REPORT ---
Author Author Sahil BLEVINS Organization [facility] Address [address] [place] [address] Care Team Providers Care Direct Support Staff Member Name Role Phone YVES BLEVINS Unavailable PROBLEMS Type Condition ICD9-CM Code WIF70-XX Code Onset Dates Condition S tatus SNOMED Code Problem Restless legs syndrome G25.81 Active 801477510 Problem GERD (gastroesophageal reflux disease) K21.9 Active 813487182 Problem Sinusitis, unspecified chronicity, unspecified location J32.9 Active 93617139 Problem COPD (chronic obstructive pulmonary disease) J44.9 Active 02431932 Problem Ulcer of right foot, unspecified ulcer stage L97.5 19 Active 41016411 Problem DM neuro manif type II E11.49 Active 65781136 Problem Constipation, unspecified constipation type K59.00 Active 34751434 Problem Schizoaffective disorder, depressive type F25.1 Active 07287758 Problem PAD (peripheral artery disease) I73.9 Active 472967574 Problem Chronic hepatitis C without hepatic coma B18.2 Active 111357149 Problem Polyneuropathy G62.9 Active 08938 000 Problem Alcohol use disorder, severe, dependence F10.20 Active 68428454 Problem Methamphetamine use disorder, severe, 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 Active 564461332 Problem Morbid (severe) obesity due to excess calories E66 .01 Active 267909573 Problem Neuropathy G62.9 Active 941919135 Problem ED (erectile dysfunction) N52.9 Acti ve 980775369 Problem 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 Active 174928147 Problem Substance abuse F19.10 Active 6621 4007 Problem Personality disorder F60.9 Active 68624247 Problem HTN (hypertension) I10 Active 3 3673067 Problem Cannabis use disorder, severe, dependence F12.20 Active 11337107 Problem Ulcer of toe of right foot, unspecified ulcer stage L97.519 Active 407542323 Problem Amputated toe of right foot S98.131A Ac tive 142942839 Problem Hammer toe, unspecified laterality M20.40 Active 140986021 ALLERGIES No Information ENCOUNTERS Encounter Location Date Diagnosis [facility] [id number] [place] [address] Aug, [facility] [address] [facility] [id number] [place] [address] Jul, [facility] [address] [address] Jul, [facility] [address] [address] Jul, [facility] [address] [address] Jul, [facility] [address] [address] Jul, Polyneuropathy G62.9 [facility] [address] [address] Jun, [facility] [address] [address] Jun, [facility] [address] [address] Jun, [facility] [address] [address] Jun, [facility] [address] [address] Jun, [facility] [address] [address] Jun, Polyneuropathy G62.9 [facility] [address] [address] May, [facility] [address] [address] May, Foot callus L84 [place] [address] [address] May, [facility] [address] [address] May, [facility] [address] [address] May, [facility] [address] [address] May, Polyneuropathy G62.9 ; HTN (hypertension ) I10 ; Schizoaffective disorder, depressive type F25.1 ; PAD (peripheral artery disease) I73.9 ; COPD (chronic obstructive pulmonary disease) J44.9 ; Amputated toe of right foot S98.131A ; Methamphetamine use disorder, severe, 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 and Type 2 diabetes mellitus with other diabetic neurological complication E11.49 [place] [address] [address] May, [facility] [address] [address] May, [facility] [address] [address] May, [facility] [address] [address] May, [facility] [address] [address] May, [place] [address] [address] May, Chronic hepatitis C without hepatic coma B18.2 and HTN (hypertension) I10 [facility] [address] [address] May, Neuropathy G62.9 [facility] [address] [address] Apr, [address] [place] [address] Apr, [facility] [address] [address] Apr, [facility] [address] [address] Apr, [facility] [address] [address] Apr, [facility] [address] [address] Apr, [facility] [address] [address] Apr, [facility] [address] [address] Apr, Ulcer of right foot, unspecified ulcer s tage L97.519 ; Type 2 diabetes mellitus with other diabetic neurological complication E11.49 ; Onychomycosis B35.1 and Hammer toe, unspecified laterality M20.40 [place] [address] [address] Apr, [place] [address] [address] Apr, HTN (hypertension) I10 and Ulcer of toe of right foot, unspecified ulcer stage L97.519 [place] [address] [address] Apr, [place] [address] [address] Apr, Schizoaffective disorder, depressive typ e F25.1 ; Other chcf (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.899 and Stimulant use disorder F15.90 [place] [address] [address] Apr, [place] [address] [address] Apr, [place] [address] [address] Apr, [facility] [address] [address] Mar, Pre-ulcerative calluses L84 [facility] [address] [address] Mar, HTN (hypertension) I10 ; DM neuro manif type II E11.49 ; Morbid (severe) obesity due to excess calories E66.01 and Polyneuropathy G62.9 [place] [address] [address] Mar, [place] [address] [address] Mar, [place] [address] [address] Mar, Onychomycosis B35.1 ; Callus of foot L84 and Hammer toe, unspecified laterality M20.40 [place] [address] [address] Mar, Neuropathy G62.9 [place] [address] [address] Mar, [place] [address] [address] Mar, [place] [address] [address] Mar, [facility] [address] [facility] [id number] [address] [place] [address] Mar, Constipation, unspecified co nstipation type K59.00 [facility] [address] [address] Mar, [place] [address] [address] Mar, [place] [address] [address] Mar, Chronic hepatitis C without hepatic coma B18.2 ; High risk medication use Z79.899 and Encounter for immunization Z23 [place] [address] [address] Mar, [facility] [address] [address] Mar, Neuropathy G62.9 [facility] [address] [facility] [id number] [address] [place] [id number] Mar, High risk sexual behavior, u nspecified type Z72.51 [place] [address] [place] [address] Feb, Callus of foot L84 [place] [address] [place] [address] Feb, Callus of foot L84 [place] [address] [address] Feb, [place] [address] [address] [address] Feb, [facility] [address] [place] [address] Feb, Methamphetamine use disorder, severe, 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 ; Alcohol use disorder, severe, dependence F10.20 and Cannabis use disorder, severe, dependence F12.20 [place] [address] [address] Feb, Chronic hepatitis C without hepatic coma B18.2 [facility] [address] [place], [place] [address] Feb, Methamphetamine use disorder, severe, 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 ; Alcohol use disorder, severe, dependence F10.20 and Cannabis use disorder, severe, dependence F12.20 [facility] [address] [address] Feb, [place] [address] Feb, Chronic hepatitis C without hepatic coma B18.2 [facility] [address] [place], [place] [address] Feb, Methamphetamine use disorder, severe, 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 ; Alcohol use disorder, severe, dependence F10.20 and Cannabis use disorder, severe, dependence F12.20 [place] [address] [id number] Feb, [place] [address] [place] [address] Feb, [place] [address] [place] [address] Feb, [place] [address] [place] [address] Feb, [place] [address] [place] [address] Feb, Neuropathy G62.9 [place] [address] Feb, Schizoaffective disorder, depressive typ e F25.1 ; Other intercell connector placer (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.899 and Stimulant use disorder F15.90 [place] [id number] Feb, Onychomycosis B35.1 and Neuropathy G62.9 [place] [address] [address] Feb, [place] [address] [id number] Feb, [place] [address] [address] Feb, [place] [id number] Feb, Methamphetamine use disorder, severe, 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 ; Alcohol use disorder, severe, dependence F10.20 and Cannabis use disorder, severe, dependence F12.20 [place] [id number] Feb, Chronic hepatitis C without hepatic coma B18.2 and Encounter for immunization Z23 [place] [address] [id number] Jan, [address] [place] [address] Jan, [facility] [address] [address] Jan, [facility] [address] [place] [address] Jan, Methamphetamine use disorder, severe, 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 ; Alcohol use disorder, severe, dependence F10.20 and Cannabis use disorder, severe, dependence F12.20 [facility] [address] [address] 24 Jan, 2019 [facility] [address] [address] Jan, [facility] [address] [address] Jan, History of amputation Z89.9 [facility] [address] [facility] [id number] [address] [place] [address] Jan, [facility] [address] [address] Jan, [facility] [address] [address] Jan, [facility] [address] [address] Jan, [facility] [address] [address] Jan, [facility] [address] [address] Jan, [facility] [address] [address] Jan, [facility] [address] [address] Jan, [facility] [address] [place] [address] Jan, Methamphetamine use disorder, severe, 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 ; Alcohol use disorder, severe, dependence F10.20 and Cannabis use disorder, severe, dependence F12.20 [place] [address] [address] 18 Jan, 2019 [place] [address] [address] 16 Jan, 2019 [place] [address] [id number] 13 Jan, 2019 [facility] [address] [address] Jan, Methamphetamine use disorder, severe, 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 ; Alcohol use disorder, severe, dependence F10.20 and Cannabis use disorder, severe, dependence F12.20 [facility] [address] [place] [address] Jan, Methamphetamine use disorder, severe, 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 ; Cannabis use disorder, severe, dependence F12.20 and Alcohol use disorder, severe, dependence F10.20 [place] [address] [address] Jan, Chronic hepatitis C without hepatic coma B18.2 [place] [address] [address] Jan, Neuropathy G62.9 [place] [address] [address] Jan, [place] [address] [address] Jan, [place] [address] [address] Jan, Chronic hepatitis C without hepatic coma B18.2 [place] [address] [address] Dec, Right foot pain M79.671 [place] [id number] Dec, Schizoaffective disorder, depressive typ e F25.1 ; Other intercell connector placer (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.899 and Stimulant use disorder F15.[address] [address] Dec, [facility] [address] [place] [address] Dec, Methamphetamine use disorder, severe, 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 ; Cannabis use disorder, severe, dependence F12.20 and Alcohol use disorder, severe, dependence F10.20 [place] [address] [address] Dec, [facility] [id number] [place] [address] Dec, Allergic contact dermatitis, unspecified trigger L23.9 and Ankle swelling, unspecified laterality M25.473 [place] [address] [address] Dec, [place] [address] [address] Dec, [facility] [address] [place] [address] Dec, Methamphetamine use disorder, severe, 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 ; Alcohol use disorder, severe, dependence F10.20 and Cannabis use disorder, severe, dependence F12.20 [place] [address] [address] Dec, [place] [address] [address] Dec, [place] [address] [address] Dec, Diarrhea of presumed infectious origin R 19.7 ; Chronic hepatitis C without hepatic coma B18.2 and Nail fungus B35.1 [place] [address] [address] Dec, Neuropathy G62.9 [place] [address] [address] Dec, [place] [address] [address] Nov, Schizoaffective disorder, depressive typ e F25.1 ; Other intercell connector placer (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.899 and Stimulant use disorder F15.90 [place] [address] [address] Nov, [place] [address] [place] [address] Nov, Substance abuse F19.10 [place] [address] [address] Nov, [place] [address] [address] Nov, Chronic hepatitis C without hepatic coma B18.2 [place] [address] [address] Nov, [place] [address] [address] Nov, Fatigue, unspecified type R53.[address] [address] Nov, Schizoaffective disorder, depressive typ e F25.1 ; Other chcf (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.899 and Stimulant use disorder F15.90 [place] [address] [address] Nov, [facility] [address] [address] Nov, [facility] [address] [address] Nov, [facility] [address] [address] Oct, Neuropathy G62.9 [facility] [address] [address] Oct, Prediabetes R73.03 ; Other chcf (cu rrent) drug therapy Z79.899 and Chronic hepatitis C without hepatic coma B18.2 [place] [address] [address] Oct, Schizoaffective disorder, depressive typ e F25.1 and Other intercell connector placer (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.899 [place] [address] [address] Oct, [facility] [address] [address] 14 Oct, 2018 Sore throat J02.9 and Acute non-recurrent frontal sinusitis J01.10 [facility] [address] [address] Oct, [facility] [address] [place] [address] 07 Oct, 2018 Acute URI J06.9 [facility] [address] [address] Oct, [facility] [address] [address] Oct, Schizoaffective disorder, depressive typ e F25.1 [facility] [address] [address] Oct, [facility] [address] [address] Oct, Substance abuse F19.10 [facility] [address] [facility] [id number] [address] [place] [address] Oct, Bronchitis J40 [facility] [address] [facility] [address] [place] [address] September, Back pain M54.9 [facility] [id number] [place] [address] September, Schizoaffective disorder, depressive typ e F25.1 [facility] [id number] [place] [address] September, [facility] [address] [facility] [address] [place] [address] September, Substance abuse F19.10 [facility] [id number] [place] [address] September, [facility] [id number] [place] [address] September, Schizoaffective disorder, depressive typ e F25.1 [facility] [id number] [place] [address] September, Substance abuse F19.10 [facility] [id number] [place] [address] September, [facility] [id number] [place] [address] September, Substance abuse F19.10 [facility] [id number] [place] [address] September, Encounter for Medicare annual wellness e xam Z00.00 ; Ulcer of right foot, unspecified ulcer stage L97.519 ; Type 2 diabetes mellitus with other diabetic neurological complication E11.49 ; COPD (chronic obstructive pulmonary disease) J44.9 ; PAD (peripheral artery disease) I73.9 ; Schizoaffective disorder, depressive type F25.1 and Routine adult health maintenance Z00.00 [facility] [address] [address] September, Schizoaffective disorder, depressive typ e F25.1 [facility] [address] [address] September, [facility] [address] [address] September, [facility] [address] [address] September, Schizoaffective disorder, depressive typ e F25.1 [facility] [address] [address] Aug, [facility] [address] [place] [address] Aug, Rib pain on left side R07.81 and Closed fracture of multiple ribs of left side with routine healing, subsequent encounter S22.42XD [place] [address] [address] Aug, [facility] [address] [address] Aug, [place] [address] [address] Jul, [facility] [address] [address] Jul, [facility] [address] [address] Jul, [facility] [address] [address] Jul, Back pain M54.9 [place] [address] [address] Jul, Polyneuropathy in diseases classified el sewhere G63 [facility] [address] [facility] [id number] [address] [address] Jul, Constipation, unspecified co nstipation type K59.00 and Burn T30.0 [facility] [address] [address] Jul, [facility] [address] [address] Jun, 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 [facility] [address] [address] Jun, Back pain M54.9 [facility] [address] [address] Jun, 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 [facility] [address] [address] Jun, [facility] [address] [address] Jun, [facility] [address] [address] Jun, [facility] [address] [address] May, [facility] [address] [address] May, Back pain M54.9 [facility] [address] [address] May, [facility] [address] [address] May, 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 ; Chronic hepatitis C without hepatic coma B18.2 and HTN (hypertension) I10 [facility] [address] [address] Apr, Back pain M54.9 [facility] [address] [address] Apr, [facility] [address] [address] Apr, Polyneuropathy in diseases classified [facility] G63 [facility] [address] [id number] [place] [address] Mar, Back pain M54.9 [facility] [id number] [place] [address] Mar, [facility] [address] [address] Mar, Back pain M54.9 [facility] [id number] [place] [address] Mar, [facility] [address] [address] Mar, [facility] [id number] [place] [address] Mar, Polyneuropathy in diseases classified el sewhere G63 [facility] [address] [address] Feb, Back pain M54.9 [facility] [address] [address] Jan, Back pain M54.9 [facility] [address] [address] Jan, [facility] [address] [address] Jan, [facility] [address] [address] Dec, Back pain M54.9 [facility] [address] [address] Dec, [facility] [address] [address] Dec, Upper respiratory tract infection, unspe cified type J06.9 [facility] [address] [address] Dec, [facility] [address] [facility] [id number] [place] [address] Dec, Acute suppurative otitis med ia of right ear without spontaneous rupture of tympanic membrane, recurrence not specified H66.001 and Acute nasopharyngitis J00 [facility] [address] [address] Dec, Back pain M54.9 [facility] [address] [address] Dec, Foot infection L08.9 and Type 2 diabetes mellitus with other diabetic neurological complication E11.49 [place] [address] [address] Nov, Cellulitis of toe of right foot L03.031 ; Polyneuropathy in diseases classified elsewhere G63 and HTN (hypertension) I10 [facility] [address] [address] Nov, [facility] [address] [address] Nov, [facility] [address] [address] Nov, Back pain M54.9 [facility] [address] [address] Nov, Shortness of breath R06.02 [facility] [address] [address] Nov, [facility] [address] [address] Oct, [facility] [address] [address] Oct, [facility] [address] [address] Oct, [facility] [address] [address] Oct, [facility] [id number] [place] [address] Oct, [facility] [address] [address] Oct, Back pain M54.9 [facility] [address] [address] Oct, Back pain M54.9 [facility] [address] [address] Oct, [facility] [address] [address] September, [facility] [address] [address] September, [facility] [address] [address] September, [facility] [address] [address] September, 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 and Hypotension, unspecified hypotension type I95.9 [facility] [address] [address] September, [facility] [address] [address] September, [facility] [address] [address] September, Back pain M54.9 [facility] [address] [address] Aug, [facility] [address] [address] Aug, Acute cystitis with hematuria N30.01 ; U lcer of right foot, unspecified ulcer stage L97.519 ; HTN (hypertension) I10 ; COPD (chronic obstructive pulmonary disease) J44.9 and DM neuro manif type II E11.49 [facility] [address] [address] Aug, Back pain M54.9 [facility] [address] [address] Jul, [facility] [address] [address] Jul, Back pain M54.9 [facility] [address] [address] Jul, [facility] [address] [address] Jul, DM neuro manif type II E11.49 and Ulcer of right foot, unspecified ulcer stage L97.519 [place] [address] [address] Jun, [facility] [address] [address] Jun, [facility] [address] [address] May, 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 ; GERD (gastroesophageal reflux disease) K21.9 and PAD (peripheral artery disease) I73.9 [place] [address] [address] May, Decubital ulcer L89.90 ; Diabetes E11.9 and GERD (gastroesophageal reflux disease) K21.9 [facility] [address] [address] May, [facility] [address] [address] Apr, [facility] [address] [address] Mar, [place] [address] [address] Mar, [facility] [address] [address] Feb, [facility] [id number] [place] [address] Feb, [facility] [address] [address] Jan, [facility] [address] [address] Jan, HTN (hypertension) I10 [facility] [address] [address] Jan, [facility] [address] [address] Dec, Back pain M54.9 [facility] [address] [address] Dec, Back pain M54.9 [facility] [address] [facility] [id number] [place] [address] Dec, Encounter for immunization Z 23 and Puncture wound of right foot, initial encounter S91.331A [facility] [address] [address] Dec, [place] [address] [address] Nov, [place] [address] [address] Nov, COPD (chronic obstructive pulmonary dise ase) J44.9 [facility] [address] [address] Nov, [facility] [address] [address] Oct, [place] [address] [address] Oct, [place] [address] [address] September, Onychomycosis B35.1 and DM neuro manif t ype II E11.49 [place] [address] [address] September, [place] [address] [address] Aug, [place] [address] [address] Jul, Sinusitis, unspecified chronicity, unspe cified location J32.9 and Cough R05 [place] [address] [address] Jul, Back pain M54.9 [place] [address] [address] 14 Jun, 2016 Back pain M54.9 [place] [address] [address] 06 Jun, 2016 COPD (chronic obstructive pulmonary dise ase) J44.9 [place] [address] [address] May, [place] [address] [address] May, [place] [address] [address] May, Back pain M54.9 [place] [address] [address] May, [place] [address] [address] May, [place] [address] [address] May, Diabetes E11.9 [place] [address] [address] 11 May, 2016 Diabetes E11.9 ; GERD [...] for hepatitis C screening test Z11.59 [facility] [address] [address] May, HTN (hypertension) I10 [facility] [address] [address] Apr, [facility] [address] [address] Apr, [facility] [address] [address] Apr, [facility] [address] [address] Apr, [facility] [address] [address] Apr, [facility] [address] [address] Mar, [facility] [address] [address] Mar, [facility] [address] [address] Mar, [facility] [address] [address] Mar, [facility] [address] [address] Mar, Dental examination Z01.20 [facility] [address] [address] Feb, [facility] [address] [address] Feb, [facility] [address] [address] Feb, Back pain M54.9 [facility] [address] [address] Jan, [facility] [address] [address] Jan, [facility] [address] [address] Dec, Diabetes E11.9 ; GERD (gastroesophageal reflux disease) K21.9 ; ED (erectile dysfunction) N52.9 ; HTN (hypertension) I10 ; Insomnia G47.00 ; COPD (chronic obstructive pulmonary disease) J44.9 ; Neuropathy G62.9 and Bipolar depression F31.30 [facility] [address] [address] Dec, 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 and Onychomycosis B35.1 [facility] [address] [address] Dec, [facility] [address] [address] Dec, [facility] [address] [address] Dec, [facility] [address] [address] Dec, [facility] [address] [address] Nov, [facility] [address] [address] Nov, [facility] [address] [address] Oct, [facility] [address] [address] Oct, [facility] [address] [address] Oct, Back pain M54.9 [facility] [address] [address] Oct, [facility] [address] [address] Oct, [facility] [address] [address] Oct, [place] [address] [address] Oct, HTN (hypertension) I10 [place] [address] [address] Oct, Back pain M54.9 [place] [address] [address] Oct, Chronic pain syndrome G89.4 [place] [address] [address] September, Back pain M54.9 [place] [address] [address] September, HTN (hypertension) I10 [place] [address] [address] Aug, Porokeratosis Q82.8 ; Onychomycosis B35. 1 and Type 2 diabetes mellitus with other diabetic neurological complication E11.[address] [address] Aug, GERD (gastroesophageal reflux disease) K 21.9 ; Diabetes E11.9 ; HTN (hypertension) I10 ; Insomnia G47.00 ; Restless legs syndrome G25.81 ; COPD (chronic obstructive pulmonary disease) J44.9 ; Back pain M54.9 and Bipolar 1 disorder F31.9 [place] [address] [address] Aug, [place] [address] [address] Aug, [address] [address] Aug, [place] [address] [address] Aug, [facility] [id number] [place] [address] Jul, [facility] [id number] [place] [address] Jul, [facility] [id number] [place] [address] 30 Jul, 2015 [facility] [address] [address] 16 Jul, 2015 [facility] [address] [address] 15 Jul, 2015 [facility] [address] [address] Jul, [facility] [id number] [place] [address] 17 Jun, 2015 Decubital ulcer L89.90 ; Diabetes E11.9 ; Back pain M54.9 ; HTN (hypertension) I10 and COPD (chronic obstructive pulmonary disease) J44.9 [facility] [id number] [place] [address] Jun, [facility] [address] [address] Jun, [facility] [address] [address] Jun, [facility] [address] [address] Jun, [facility] [address] [address] Jun, Diabetes E11.9 ; Insomnia G47.00 ; Decub ital ulcer L89.90 ; GERD (gastroesophageal reflux disease) K21.9 ; Back pain M54.9 ; Superficial fungus infection of skin B36.9 and HTN (hypertension) I10 [facility] [id number] [place] [id number] 02 Jun, 2015 Dental examination Z01.20 [place] [address] [address] May, [facility] [address] [address] May, [facility] [address] [address] May, [place] [address] [address] May, Diabetes E11.9 ; HTN (hypertension) I10 and Decubital ulcer L89.90 [place] [address] [address] May, HTN (hypertension) I10 ; Decubital ulcer L89.90 and Diabetes E11.9 [place] [address] [address] 30 Apr, 2015 Diabetes E11.9 ; GERD (gastroesophageal reflux disease) K21.9 ; Back pain M54.9 ; HTN (hypertension) I10 ; Restless legs syndrome G25.81 and Decubital ulcer L89.90 [place] [address] [address] Apr, [place] [address] [address] Apr, Diabetes E11.9 ; HTN (hypertension) I10 ; Restless legs syndrome G25.81 ; GERD (gastroesophageal reflux disease) K21.9 and COPD (chronic obstructive pulmonary disease) J44.9 [place] [address] [address] Mar, [place] [address] [address] Mar, [place] [address] [address] Mar, Diabetes E11.9 ; Abscess L02.91 and Rest less legs syndrome G25.81 [place] [address] [address] Mar, [facility] [address] [address] Feb, GERD (gastroesophageal reflux disease) K 21.9 ; Back pain M54.9 ; ED (erectile dysfunction) N52.9 ; Diabetes E11.9 ; HTN (hypertension) I10 and Insomnia G47.00 [place] [address] [address] Feb, [place] [address] [address] Feb, [place] [address] [address] Jan, [place] [address] [address] Jan, Diabetes 250.00 ; Nondependent cannabis abuse, continuous 305.21 ; Cough 786.2 ; Schizoaffective disorder, unspecified 295.70 ; Sciatica 724.3 ; Other, mixed, or unspecified nondependent drug abuse, unspecified 305.90 ; Chronic pain 338.29 ; GERD (gastroesophageal reflux disease) 530.81 and HTN (hypertension) 401.9 [place] [address] [address] Jan, [place] [address] [address] Jan, [place] [address] [address] Jan, Chronic pain associated with significant psychosocial dysfunction 338.4 ; Diabetes mellitus without mention of complication, type I [juvenile type], uncontrolled 250.03 ; Benign essential hypertension 401.1 ; Schizoaffective disorder, unspecified 295.70 ; Wheezing 786.07 ; Ear ache 388.70 ; Cough 786.2 ; Sciatica 724.3 and Foot pain, bilateral 729.5 [place] [address] [address] Dec, [place] [address] [address] Dec, [facility] [id number] [place] [address] Dec, [facility] [id number] [place] [address] Dec, [facility] [address] [address] Dec, [facility] [address] [address] Nov, Elevated liver enzymes 790.5 [facility] [id number] [place] [address] Nov, [facility] [address] [address] Nov, [facility] [address] [address] Nov, [facility] [address] [address] Nov, Benign essential hypertension 401.1 ; Di abetes mellitus without mention of complication, type I [juvenile type], uncontrolled 250.03 and Nondependent cannabis abuse, continuous 305.21 [facility] [id number] [place] [address] Oct, Cellulitis 682.9 and Benign essential hy pertension 401.1 [facility] [address] [address] Oct, [facility] [id number] [place] [address] September, [facility] [address] [address] September, [facility] [address] [address] Aug, [facility] [address] [address] Aug, [facility] [address] [id number] [place] [address] 14 Aug, 2014 [facility] [address] [id number] [place] [address] 13 Aug, 2014 [facility] [address] [id number] [place] [address] Jul, [facility] [address] [id number] [place] [address] Jul, [facility] [address] [id number] [place] [address] Jul, [facility] [address] [id number] [place] [address] Jul, [facility] [address] [id number] [place] [address] Jul, [facility] [address] [id number] [place] [address] Jul, [facility] [address] [id number] [place] [address] Jun, [facility] [address] [id number] [place] [address] Jun, [facility] [address] [id number] [place] [address] Jun, [facility] [address] [id number] [place] [address] Jun, [facility] [address] [id number] [place] [address] Jun, [facility] [address] [id number] [place] [address] May, [facility] [address] [id number] [place] [address] May, [facility] [address] [id number] [place] [address] May, [facility] [address] [id number] [place] [address] May, [facility] [address] [id number] [place] [address] May, [facility] [address] [id number] [place] [address] May, [facility] [address] [id number] [place] [address] May, [facility] [address] [id number] [place] [address] May, [facility] [address] [facility] [id number] [place] [address] Apr, [facility] [address] [id number] [place] [address] Apr, [facility] [address] [id number] [place] [address] Apr, [facility] [address] [id number] [place] [address] Apr, [facility] [address] [id number] [place] [address] Mar, [facility] [address] [id number] [place] [address] Mar, [facility] [address] [id number] [place] [address] Mar, [facility] [address] [id number] [place] [address] Mar, [facility] [address] [id number] [place] [address] Feb, [facility] [address] [id number] [place] [address] Feb, [facility] [address] [id number] [place] [address] Feb, [facility] [address] [id number] [place] [address] Feb, [facility] [address] [id number] [place] [address] Feb, [facility] [address] [id number] [place] [address] Feb, [facility] [address] [facility] [id number] [place] [address] Jan, [facility] [address] [id number] [place] [address] Jan, [facility] [address] [id number] [place] [address] Jan, [facility] [address] [id number] [place] [address] Jan, [facility] [address] [id number] [place] [address] Dec, [facility] [address] [id number] [place] [address] Dec, [facility] [address] [id number] [place] [address] Dec, [facility] [address] [id number] [place] [address] Dec, [facility] [address] [id number] [place] [address] Dec, [facility] [address] [id number] [place] [address] Dec, [facility] [address] [id number] [place] [address] Oct, [facility] [address] [id number] [place] [address] Oct, [facility] [address] [id number] [place] [address] September, [facility] [address] [id number] [place] [address] September, [facility] [address] [id number] [place] [address] September, [facility] [address] [id number] [place] [address] September, [facility] [address] [id number] [place] [address] September, [facility] [address] [id number] [place] [address] September, [facility] [address] [id number] [place] [address] Aug, [facility] [address] [id number] [place] [address] Aug, [facility] [address] [id number] [place] [address] Aug, [facility] [address] [id number] [place] [address] Aug, [facility] [address] [id number] [place] [address] Jul, [facility] [address] [id number] [place] [address] Jul, [facility] [address] [id number] [place] [address] Jun, [facility] [address] [id number] [place] [address] Jun, [facility] [address] [id number] [place] [address] May, [facility] [address] [id number] [place] [address] May, [facility] [address] [id number] [place] [address] Jan, [facility] [address] [id number] [place] [address] Dec, [facility] [address] [id number] [place] [address] Jun, [facility] [address] [id number] [place] [address] May, [facility] [address] [id number] [place] [address] Nov, [facility] [address] [id number] [place] [address] September, [facility] [address] [id number] [place] [address] Aug, [facility] [address] [id number] [place] [address] Aug, [facility] [address] [id number] [place] [address] Aug, [facility] [id number] [place] [address] Aug, [facility] [address] [id number] [place] [address] Nov, [facility] [id number] [place] [address] Oct, [facility] [address] [id number] [place] [address] Jul, [facility] [id number] [place] [address] Feb, [facility] [id number] [place] [address] Feb, [facility] [id number] [place] [address] Apr, [facility] [address] [id number] [place] [address] Apr, [facility] [id number] [place] [address] Feb, [facility] [id number] [place] [address] Feb, [facility] [address] [id number] [place] [address] Jul, IMMUNIZATIONS No Known Immunizations SOCIAL HISTORY Never Assessed REASON FOR VISIT Medication reconciliation PLAN OF CARE VITAL SIGNS MEDICATIONS Medication Instructions Dosage Frequency Start Date End Date Duration S tatus Polyethylene Glycol 3350 - Orally twice dailyl 1 cap full tw ice daily until results Jul, 5 days Active Ventolin HFA 108 (90 Base) MCG/ACT Inhalation every 4 hours as needed 2 puffs as needed Active benztropine 1 mg take 1 tablet (1 mg) by oral route 3 times per day Dec, Active Elavil 75 by oral route at bedtime PRN 1 tablet Dec, Active Lyrica 150 MG Orally Twice a day 1 capsule 12h September, 28 days Active Invega 6 MG Orally at bedtime 1 tablet A ctive Lisinopril 20 mg Orally Once a day 1 tablet 24h 90 Active Depakote 500 mg Orally 4 times a day 1 tablet 6h May, Active Ropinirole HCl 3 MG TAKE ONE TABLET BY M OUTH ONCE DAILY 1 TO 3 HOURS BEFORE AT BEDTIME 90 Active Cymbalta 60 mg Orally Once a day 1 capsule 24h May, Active Ranitidine HCl 150 MG TAKE ONE TABLET BY MOUTH TWICE DAILY 90 Active Metoprolol Succinate 50 mg Orally Once a day at bedtime 1 capsule Active Hydrocodone-Ibuprofen 7.5-200 MG Orally 3 times a day 1 tablet as n eeded 8h Jun, 28 days [id number] RESULTS [id number]
--- OUTSIDE RECORDS SUMMARY | 2019-09-09 08:34 | XMS REPORT ---
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 Name Role Phone MICHAEL CEDILLOMELIZA Unavailable PROBLEMS Type Condition ICD9-CM Code GMG94-DP Code Onset Dates Condition S tatus SNOMED Code Problem Restless legs syndrome G25.81 Active 774789042 Problem GERD (gastroesophageal reflux disease) K21.9 Active 284016437 Problem Sinusitis, unspecified chronicity, unspecified location J32.9 Active 50265292 Problem COPD (chronic obstructive pulmonary disease) J44.9 Active 93101996 Problem Ulcer of right foot, unspecified ulcer stage L97.5 19 Active 76231461 Problem DM neuro manif type II E11.49 Active 59264697 Problem Constipation, unspecified constipation type K59.00 Active 57859488 Problem Schizoaffective disorder, depressive type F25.1 Active 65574947 Problem PAD (peripheral artery disease) I73.9 Active 136774870 Problem Chronic hepatitis C without hepatic coma B18.2 Active 279925483 Problem Polyneuropathy G62.9 Active 38537 000 Problem Alcohol use disorder, severe, dependence F10.20 Active 27026196 Problem Methamphetamine use disorder, severe, 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 Active 559682838 Problem Morbid (severe) obesity due to excess calories E66 .01 Active 060084569 Problem Neuropathy G62.9 Active 557345652 Problem ED (erectile dysfunction) N52.9 Acti ve 258343291 Problem 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 Active 672724968 Problem Substance abuse F19.10 Active 6621 4007 Problem Personality disorder F60.9 Active 37528313 Problem HTN (hypertension) I10 Active 3 0028768 Problem Cannabis use disorder, severe, dependence F12.20 Active 14061052 Problem Ulcer of toe of right foot, unspecified ulcer stage L97.519 Active 823170110 Problem Amputated toe of right foot S98.131A Ac tive 414734719 Problem Hammer toe, unspecified laterality M20.40 Active 793979583 ALLERGIES No Information ENCOUNTERS Encounter Location Date Diagnosis [facility] [address] [address] Jul, [facility] [address] [address] Jul, [facility] [address] [address] Jul, Polyneuropathy G62.9 [facility] [address] [address] Jun, [facility] [address] [address] Jun, [facility] [address] [address] Jun, [facility] [address] [address] Jun, [facility] [address] [address] Jun, [facility] [address] [address] Jun, Polyneuropathy G62.9 [facility] [address] [address] May, [facility] [address] [address] May, Foot callus L84 [facility] [address] [address] May, [facility] [address] [address] May, [facility] [address] [address] May, [facility] [address] [address] 09 May, 2019 Polyneuropathy G62.9 ; HTN (hypertension ) I10 ; Schizoaffective disorder, depressive type F25.1 ; PAD (peripheral artery disease) I73.9 ; COPD (chronic obstructive pulmonary disease) J44.9 ; Amputated toe of right foot S98.131A ; Methamphetamine use disorder, severe, 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 and Type 2 diabetes mellitus with other diabetic neurological complication E11.49 [place] [address] [address] May, [facility] [address] [address] May, [place] [address] [address] May, [facility] [address] [address] May, [place] [address] [address] May, [facility] [address] [address] May, Chronic hepatitis C without hepatic coma B18.2 and HTN (hypertension) I10 [place] [address] [address] May, Neuropathy G62.9 [place] [address] [address] Apr, [address] [place] [address] Apr, [facility] [address] [address] Apr, [facility] [address] [address] Apr, [facility] [address] [address] Apr, [facility] [address] [address] Apr, [place] [address] [address] Apr, [place] [address] [address] Apr, Ulcer of right foot, unspecified ulcer s tage L97.519 ; 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 complication E11.49 ; Onychomycosis B35.1 and Hammer toe, unspecified laterality M20.40 [place] [address] [address] Apr, [place] [address] [address] Apr, HTN (hypertension) I10 and Ulcer of toe of right foot, unspecified ulcer stage L97.519 [place] [address] [address] Apr, [place] [address] [address] Apr, Schizoaffective disorder, depressive typ e F25.1 ; 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 and Stimulant use disorder F15.90 [place] [address] [address] Apr, [place] [address] [address] Apr, [place] [address] [address] Apr, [place] [address] [address] Mar, Pre-ulcerative calluses L84 [place] [address] [address] Mar, HTN (hypertension) I10 ; DM neuro manif type II E11.49 ; Morbid (severe) obesity due to excess calories E66.01 and Polyneuropathy G62.9 [place] [address] [address] Mar, [facility] [address] [address] Mar, [place] [address] [address] Mar, Onychomycosis B35.1 ; Callus of foot L84 and Hammer toe, unspecified laterality M20.40 [place] [address] [address] Mar, Neuropathy G62.9 [place] [address] [address] Mar, [place] [address] [address] Mar, [place] [address] [address] Mar, [facility] [address] [place] [id number] [place] [address] Mar, Constipation, unspecified co nstipation type K59.00 [place] [address] [address] Mar, [place] [address] [address] Mar, [place] [address] [address] Mar, Chronic hepatitis C without hepatic coma B18.2 ; High risk medication use Z79.899 and Encounter for immunization Z23 [place] [address] [address] Mar, [place] [address] [address] Mar, Neuropathy G62.9 [facility] [address] [place] [id number] [place] [address] Mar, High risk sexual behavior, u nspecified type Z72.51 [facility] [address] [place] [address] Feb, Callus of foot L84 [place] [address] [place] [address] Feb, Callus of foot L84 [place] [address] [place] [address] Feb, [place] [address] [place] [address] Feb, [facility] [address] [place] [address] Feb, Methamphetamine use disorder, severe, 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 ; Alcohol use disorder, severe, dependence F10.20 and Cannabis use disorder, severe, dependence F12.20 [place] [address] [place] [id number] Feb, Chronic hepatitis C without hepatic coma B18.2 [facility] [address] [place], [place] [address] Feb, Methamphetamine use disorder, severe, 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 ; Alcohol use disorder, severe, dependence F10.20 and Cannabis use disorder, severe, dependence F12.20 [place] [address] [address] Feb, [place] [address] [place] [id number] Feb, Chronic hepatitis C without hepatic coma B18.2 [facility] [address] [place], [place] [address] Feb, Methamphetamine use disorder, severe, 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 ; Alcohol use disorder, severe, dependence F10.20 and Cannabis use disorder, severe, dependence F12.20 [place] [address] [place] [id number] Feb, [place] [address] [place] [id number] Feb, [place] [address] [place] [id number] Feb, [facility] [address] [place] [address] Feb, [facility] [address] [place] [address] Feb, Neuropathy G62.9 [place] [address] [place] [id number] Feb, Schizoaffective disorder, depressive typ e F25.1 ; 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 and Stimulant use disorder F15.[address] [address] Feb, Onychomycosis B35.1 and Neuropathy G62.9 [place] [address] [place] [id number] Feb, [place] [address] [place] [id number] Feb, [place] [address] [address] Feb, [facility] [address] [place], [place] [address] Feb, Methamphetamine use disorder, severe, 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 ; Alcohol use disorder, severe, dependence F10.20 and Cannabis use disorder, severe, dependence F12.[address] [address] Feb, Chronic hepatitis C without hepatic coma B18.2 and Encounter for immunization Z23 [address] [address] Jan, [place] [address] Jan, [facility] [address] [address] Jan, [facility] [address] [place] [address] Jan, Methamphetamine use disorder, severe, 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 ; Alcohol use disorder, severe, dependence F10.20 and Cannabis use disorder, severe, dependence F12.20 [facility] [address] [address] 24 Jan, 2019 [facility] [address] [address] 23 Jan, 2019 [facility] [address] [address] 23 Jan, 2019 History of amputation Z89.9 [facility] [address] [facility] [id number] [place] [address] 21 Jan, 2019 [facility] [address] [address] Jan, [facility] [address] [address] Jan, [facility] [address] [address] 19 Jan, 2019 [facility] [address] [address] 18 Jan, 2019 [facility] [address] [address] 18 Jan, 2019 [facility] [address] [address] 18 Jan, 2019 [facility] [address] [address] 18 Jan, 2019 [facility] [address] [place] [address] 18 Jan, 2019 Methamphetamine use disorder, severe, 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 ; Alcohol use disorder, severe, dependence F10.20 and Cannabis use disorder, severe, dependence F12.20 [facility] [address] [address] 18 Jan, 2019 [facility] [address] [address] 16 Jan, 2019 [facility] [address] [place] [id number] Jan, [facility] [address] [place] [address] Jan, Methamphetamine use disorder, severe, 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 ; Alcohol use disorder, severe, dependence F10.20 and Cannabis use disorder, severe, dependence F12.20 [facility] [address] [place] [address] Jan, Methamphetamine use disorder, severe, 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 ; Cannabis use disorder, severe, dependence F12.20 and Alcohol use disorder, severe, dependence F10.20 [place] [address] [address] Jan, Chronic hepatitis C without hepatic coma B18.2 [place] [address] [address] Jan, Neuropathy G62.9 [place] [address] [address] Jan, [place] [address] [address] Jan, [facility] [address] [address] Jan, Chronic hepatitis C without hepatic coma B18.2 [place] [address] [address] Dec, Right foot pain M79.671 [place] [address] [address] Dec, Schizoaffective disorder, depressive typ e F25.1 ; 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 and Stimulant use disorder F15.[address] [address] Dec, [facility] [address] [place] [address] Dec, Methamphetamine use disorder, severe, 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 ; Alcohol use disorder, severe, dependence F10.20 and Cannabis use disorder, severe, dependence F12.20 [place] [address] [address] Dec, [place] [address] [address] Dec, [facility] [address] [facility] [id number] [address] [place] [address] Dec, Ulcer of toe of right foot, unspecified ulcer stage L97.519 [place] [address] [address] Dec, [facility] [address] [place] [address] Dec, Methamphetamine use disorder, severe, 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 ; Cannabis use disorder, severe, dependence F12.20 and Alcohol use disorder, severe, dependence F10.20 [place] [address] [address] Dec, [facility] [address] [facility] [id number] [address] [place] [address] Dec, Allergic contact dermatitis, unspecified trigger L23.9 and Ankle swelling, unspecified laterality M25.473 [place] [address] [address] Dec, [place] [address] [address] Dec, [facility] Formerly named [facility] [place] [place] [address] Dec, Methamphetamine use disorder, severe, 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 ; Alcohol use disorder, severe, dependence F10.20 and Cannabis use disorder, severe, dependence F12.20 [place] [address] [address] Dec, [place] [address] [address] Dec, [place] [address] [address] Dec, Diarrhea of presumed infectious origin R 19.7 ; Chronic hepatitis C without hepatic coma B18.2 and Nail fungus B35.1 [facility] [address] [address] Dec, Neuropathy G62.9 [facility] [address] [address] Dec, [facility] [address] [address] Nov, Schizoaffective disorder, depressive typ e F25.1 ; 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 and Stimulant use disorder F15.90 [facility] [address] [address] Nov, [facility] [address] [place] [address] Nov, Substance abuse F19.10 [facility] [address] [address] Nov, [facility] [address] [address] Nov, Chronic hepatitis C without hepatic coma B18.2 [facility] [address] [address] Nov, [facility] [address] [address] Nov, Fatigue, unspecified type R53.83 [facility] [address] [address] Nov, Schizoaffective disorder, depressive typ e F25.1 ; 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 and Stimulant use disorder F15.90 [facility] [address] [address] Nov, [facility] [address] [address] Nov, [facility] [address] [address] Nov, [facility] [address] [place] [id number] [place] [address] 27 Oct, 2018 Neuropathy G62.9 [facility] [address] [address] Oct, Prediabetes R73.03 ; Other fci (cu rrent) drug therapy Z79.899 and Chronic hepatitis C without hepatic coma B18.2 [facility] [address] [address] Oct, Schizoaffective disorder, depressive typ e F25.1 and 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 [facility] [address] [address] Oct, [facility] [address] [place] [address] 14 Oct, 2018 Sore throat J02.9 and Acute non-recurrent frontal sinusitis J01.10 [facility] [address] [place] [id number] [place] [address] Oct, [facility] [address] [place] [id number] [address] [place] [address] Oct, Acute URI J06.9 [facility] [address] [address] Oct, [facility] [address] [place] [id number] [place] [address] Oct, Schizoaffective disorder, depressive typ e F25.1 [facility] [address] [place] [id number] [place] [address] Oct, [address] [address] Oct, Substance abuse F19.10 [facility] [address] [place] [id number] [place] [address] Oct, Bronchitis J40 [address] [place] [address] September, Back pain M54.9 [facility] [address] [place] [id number] [place] [address] September, Schizoaffective disorder, depressive typ e F25.1 [facility] [address] [place] [id number] [place] [address] September, [address] [place] [address] September, Substance abuse F19.10 [facility] [address] [place] [id number] [place] [address] September, [facility] [address] [address] September, Schizoaffective disorder, depressive typ e F25.1 [place] [address] [place] [id number] [place] [address] September, Substance abuse F19.10 [facility] [address] [place] [id number] [place] [address] September, [facility] [address] [place] [id number] [place] [address] September, Substance abuse F19.10 [facility] [address] [place] [id number] [place] [address] September, Encounter for Medicare annual wellness e xam Z00.00 ; Ulcer of right foot, unspecified ulcer stage L97.519 ; Type 2 diabetes mellitus with other diabetic neurological complication E11.49 ; COPD (chronic obstructive pulmonary disease) J44.9 ; PAD (peripheral artery disease) I73.9 ; Schizoaffective disorder, depressive type F25.1 and Routine adult health maintenance Z00.00 [facility] [address] [place] [id number] [place] [address] September, Schizoaffective disorder, depressive typ e F25.1 [facility] [address] [place] [id number] [place] [address] September, [facility] [address] [address] September, [facility] [address] [address] September, Schizoaffective disorder, depressive typ e F25.1 [facility] [address] [address] Aug, [facility] [address] [place] [id number] [place] [address] Aug, Rib pain on left side R07.81 and Closed fracture of multiple ribs of left side with routine healing, subsequent encounter S22.42XD [place] [address] [address] Aug, [facility] [address] [address] Aug, [facility] [address] [address] Jul, [facility] [address] [address] Jul, [facility] [address] [address] Jul, [facility] [address] [address] Jul, Back pain M54.9 [facility] [address] [address] Jul, Polyneuropathy in diseases classified el sewhere G63 [facility] [address] [facility] [id number] [address] [place] [address] Jul, Constipation, unspecified co nstipation type K59.00 and Burn T30.0 [facility] [address] [address] Jul, [facility] [address] [address] Jun, 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 [facility] [address] [address] Jun, Back pain M54.9 [facility] [address] [address] Jun, 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 [facility] [address] [address] Jun, [facility] [address] [address] Jun, [facility] [address] [address] Jun, [facility] [address] [address] May, [facility] [address] [address] May, Back pain M54.9 [facility] [address] [address] May, [facility] [address] [address] May, 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 ; Chronic hepatitis C without hepatic coma B18.2 and HTN (hypertension) I10 [facility] [address] [address] Apr, Back pain M54.9 [facility] [address] [address] Apr, [facility] [address] [address] Apr, Polyneuropathy in diseases classified el sewhere G63 [facility] [address] [address] Mar, Back pain M54.9 [facility] [address] [address] Mar, [facility] [address] [address] Mar, Back pain M54.9 [facility] [address] [address] Mar, [facility] [address] [address] Mar, [facility] [address] [address] Mar, Polyneuropathy in diseases classified el sewhere G63 [facility] [address] [address] Feb, Back pain M54.9 [facility] [address] [address] Jan, Back pain M54.9 [facility] [address] [address] Jan, [facility] [address] [address] Jan, [facility] [address] [address] Dec, Back pain M54.9 [facility] [address] [address] Dec, [facility] [address] [address] Dec, Upper respiratory tract infection, unspe cified type J06.9 [facility] [address] [address] Dec, [facility] [address] [facility] [id number] [address] [place] [address] Dec, Acute suppurative otitis med ia of right ear without spontaneous rupture of tympanic membrane, recurrence not specified H66.001 and Acute nasopharyngitis J00 [facility] [address] [address] Dec, Back pain M54.9 [facility] [address] [address] Dec, Foot infection L08.9 and Type 2 diabetes mellitus with other diabetic neurological complication E11.49 [facility] [address] [address] Nov, Cellulitis of toe of right foot L03.031 ; Polyneuropathy in diseases classified elsewhere G63 and HTN (hypertension) I10 [facility] [address] [address] Nov, [facility] [address] [address] Nov, [facility] [address] [address] Nov, Back pain M54.9 [facility] [address] [address] Nov, Shortness of breath R06.02 [facility] [address] [address] Nov, [facility] [address] [address] Oct, [facility] [address] [address] Oct, [facility] [address] [address] Oct, [facility] [address] [address] Oct, [facility] [address] [address] [address] Oct, [facility] [address] [address] Oct, Back pain M54.9 [facility] [address] [address] Oct, Back pain M54.9 [facility] [address] [address] Oct, [facility] [address] [address] September, [facility] [address] [address] September, [facility] [address] [address] September, [facility] [address] [address] September, 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 and Hypotension, unspecified hypotension type I95.9 [facility] [address] [address] September, [facility] [address] [address] September, [facility] [address] [address] September, Back pain M54.9 [facility] [address] [address] Aug, [facility] [address] [address] Aug, Acute cystitis with hematuria N30.01 ; U lcer of right foot, unspecified ulcer stage L97.519 ; HTN (hypertension) I10 ; COPD (chronic obstructive pulmonary disease) J44.9 and DM neuro manif type II E11.49 [facility] [address] [address] Aug, Back pain M54.9 [facility] [address] [address] Jul, [facility] [address] [address] Jul, Back pain M54.9 [facility] [address] [address] 14 Jul, 2017 [facility] [address] [address] 09 Jul, 2017 DM neuro manif type II E11.49 and Ulcer of right foot, unspecified ulcer stage L97.519 [facility] [address] [address] 19 Jun, 2017 [facility] [address] [address] 15 Jun, 2017 [facility] [address] [address] May, 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 ; GERD (gastroesophageal reflux disease) K21.9 and PAD (peripheral artery disease) I73.9 [place] [address] [address] May, Decubital ulcer L89.90 ; Diabetes E11.9 and GERD (gastroesophageal reflux disease) K21.9 [place] [address] [address] May, [facility] [address] [address] Apr, [facility] [address] [address] Mar, [facility] [address] [address] Mar, [facility] [address] [address] Feb, [facility] [address] [address] Feb, [facility] [address] [address] Jan, [facility] [address] [address] Jan, HTN (hypertension) I10 [facility] [address] [address] Jan, [facility] [address] [address] Dec, Back pain M54.9 [facility] [address] [address] Dec, Back pain M54.9 [facility] [address] [facility] [id number] [address] [place] [address] Dec, Encounter for immunization Z 23 and Puncture wound of right foot, initial encounter S91.331A [facility] [address] [address] Dec, [facility] [address] [address] Nov, [place] [address] [address] Nov, COPD (chronic obstructive pulmonary dise ase) J44.9 [facility] [address] [address] Nov, [facility] [address] [address] Oct, [facility] [address] [address] Oct, [facility] [address] [address] September, Onychomycosis B35.1 and DM neuro manif t ype II E11.49 [facility] [address] [address] September, [facility] [address] [address] Aug, [facility] [address] [address] Jul, Sinusitis, unspecified chronicity, unspe cified location J32.9 and Cough R05 [facility] [address] [address] 13 Jul, 2016 Back pain M54.9 [facility] [address] [address] 14 Jun, 2016 Back pain M54.9 [facility] [address] [address] 06 Jun, 2016 COPD (chronic obstructive pulmonary dise ase) J44.9 [facility] [address] [address] 17 May, 2016 [place] [address] [address] May, [place] [address] [address] May, Back pain M54.9 [facility] [address] [address] 16 May, 2016 [facility] [address] [address] May, [place] [address] [address] May, Diabetes E11.9 [place] [address] [address] May, Diabetes E11.9 ; GERD (gastroesophageal reflux [...] Need for hepatitis C screening test Z11.59 [place] [address] [address] 04 May, 2016 HTN (hypertension) I10 [place] [id number] [place] [address] Apr, [facility] [address] [address] Apr, [facility] [address] [address] Apr, [facility] [address] [address] Apr, [facility] [address] [address] Apr, [facility] [address] [address] Mar, [facility] [address] [address] Mar, [facility] [address] [address] Mar, [facility] [address] [address] Mar, [facility] [address] [address] Mar, Dental examination Z01.20 [facility] [address] [address] Feb, [facility] [address] [address] Feb, [facility] [address] [address] Feb, Back pain M54.9 [facility] [address] [address] Jan, [facility] [address] [address] Jan, [facility] [address] [address] Dec, Diabetes E11.9 ; GERD (gastroesophageal reflux disease) K21.9 ; ED (erectile dysfunction) N52.9 ; HTN (hypertension) I10 ; Insomnia G47.00 ; COPD (chronic obstructive pulmonary disease) J44.9 ; Neuropathy G62.9 and Bipolar depression F31.30 [facility] [address] [address] Dec, 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 and Onychomycosis B35.1 [facility] [address] [address] Dec, [facility] [address] [address] Dec, [facility] [address] [address] Dec, [facility] [address] [address] Dec, [facility] [address] [address] Nov, [facility] [address] [address] Nov, [facility] [address] [address] Oct, [facility] [address] [address] Oct, [facility] [address] [address] Oct, Back pain M54.9 [facility] [address] [address] Oct, [facility] [address] [address] Oct, [facility] [address] [address] Oct, [facility] [address] [address] Oct, HTN (hypertension) I10 [facility] [address] [address] Oct, Back pain M54.9 [facility] [address] [address] Oct, Chronic pain syndrome G89.4 [facility] [address] [address] September, Back pain M54.9 [facility] [address] [address] September, HTN (hypertension) I10 [place] [address] [address] Aug, Porokeratosis Q82.8 ; Onychomycosis B35. 1 and Type 2 diabetes mellitus with other diabetic neurological complication E11.49 [place] [address] [address] Aug, GERD (gastroesophageal reflux disease) K 21.9 ; Diabetes E11.9 ; HTN (hypertension) I10 ; Insomnia G47.00 ; Restless legs syndrome G25.81 ; COPD (chronic obstructive pulmonary disease) J44.9 ; Back pain M54.9 and Bipolar 1 disorder F31.9 [facility] [address] [address] Aug, [place] [address] [address] Aug, [facility] [address] [address] Aug, [facility] [address] [address] Aug, [place] [address] [address] Jul, [facility] [address] [address] Jul, [facility] [address] [address] 30 Jul, 2015 [facility] [address] [address] Jul, [facility] [address] [address] 15 Jul, 2015 [facility] [address] [address] Jul, [facility] [address] [address] 17 Jun, 2015 Decubital ulcer L89.90 ; Diabetes E11.9 ; Back pain M54.9 ; HTN (hypertension) I10 and COPD (chronic obstructive pulmonary disease) J44.9 [place] [address] [address] Jun, [place] [address] [address] Jun, [place] [address] [address] Jun, [place] [address] [address] Jun, [place] [address] [address] Jun, Diabetes E11.9 ; Insomnia G47.00 ; Decub ital ulcer L89.90 ; GERD (gastroesophageal reflux disease) K21.9 ; Back pain M54.9 ; Superficial fungus infection of skin B36.9 and HTN (hypertension) I10 [place] [id number] [place] [id number] Jun, Dental examination Z01.20 [place] [address] [address] May, [place] [address] [address] May, [facility] [address] [address] May, [place] [address] [address] May, Diabetes E11.9 ; HTN (hypertension) I10 and Decubital ulcer L89.90 [place] [address] [address] 06 May, 2015 HTN (hypertension) I10 ; Decubital ulcer L89.90 and Diabetes E11.9 [place] [address] [address] 30 Apr, 2015 Diabetes E11.9 ; GERD (gastroesophageal reflux disease) K21.9 ; Back pain M54.9 ; HTN (hypertension) I10 ; Restless legs syndrome G25.81 and Decubital ulcer L89.90 [place] [address] [address] 17 Apr, 2015 [place] [address] [address] Apr, Diabetes E11.9 ; HTN (hypertension) I10 ; Restless legs syndrome G25.81 ; GERD (gastroesophageal reflux disease) K21.9 and COPD (chronic obstructive pulmonary disease) J44.9 [place] [address] [address] Mar, [place] [address] [address] Mar, [place] [address] [address] Mar, Diabetes E11.9 ; Abscess L02.91 and Rest less legs syndrome G25.81 [place] [address] [address] Mar, [place] [address] [address] Feb, GERD (gastroesophageal reflux disease) K 21.9 ; Back pain M54.9 ; ED (erectile dysfunction) N52.9 ; Diabetes E11.9 ; HTN (hypertension) I10 and Insomnia G47.00 [facility] [address] [address] Feb, [facility] [address] [address] Feb, [facility] [address] [address] Jan, [facility] [address] [address] Jan, Diabetes 250.00 ; Nondependent cannabis abuse, continuous 305.21 ; Cough 786.2 ; Schizoaffective disorder, unspecified 295.70 ; Sciatica 724.3 ; Other, mixed, or unspecified nondependent drug abuse, unspecified 305.90 ; Chronic pain 338.29 ; GERD (gastroesophageal reflux disease) 530.81 and HTN (hypertension) 401.9 [place] [address] [address] Jan, [place] [address] [address] Jan, [place] [address] [address] Jan, Chronic pain associated with significant psychosocial dysfunction 338.4 ; Diabetes mellitus without mention of complication, type I [juvenile type], uncontrolled 250.03 ; Benign essential hypertension 401.1 ; Schizoaffective disorder, unspecified 295.70 ; Wheezing 786.07 ; Ear ache 388.70 ; Cough 786.2 ; Sciatica 724.3 and Foot pain, bilateral 729.5 [facility] [address] [address] Dec, [place] [address] [address] Dec, [facility] [address] [address] Dec, [place] [address] [address] Dec, [place] [id number] [place] [address] Dec, [facility] [address] [address] Nov, Elevated liver enzymes 790.5 [facility] [id number] [place] [address] Nov, [facility] [address] [address] Nov, [facility] [address] [address] Nov, [facility] [address] [address] Nov, Benign essential hypertension 401.1 ; Di abetes mellitus without mention of complication, type I [juvenile type], uncontrolled 250.03 and Nondependent cannabis abuse, continuous 305.21 [facility] [address] [address] Oct, Cellulitis 682.9 and Benign essential hy pertension 401.1 [facility] [address] [address] Oct, [facility] [address] [address] September, [facility] [address] [address] September, [facility] [address] [address] Aug, [facility] [address] [address] Aug, [facility] [address] [address] Aug, [facility] [address] [address] Aug, [facility] [address] [address] Jul, [facility] [address] [facility] [id number] [place] [address] Jul, [facility] [address] [facility] [id number] [facility] [place] [address] Jul, [facility] [address] [facility] [id number] [place] [address] Jul, [facility] [address] [id number] [facility] [place] [address] Jul, [facility] [address] [facility] [id number] [facility] [place] [address] Jul, [facility] [address] [id number] [place] [address] Jun, [facility] [address] [id number] [place] [address] Jun, [facility] [address] [id number] [place] [address] Jun, [facility] [address] [facility] [id number] [place] [address] Jun, [facility] [address] [id number] [place] [address] Jun, [facility] [address] [id number] [place] [address] May, [facility] [address] [id number] [place] [address] May, [facility] [address] [facility] [id number] [place] [address] May, [facility] [address] [id number] [place] [address] May, [facility] [address] [facility] [id number] [place] [address] May, [facility] [address] [id number] [place] [address] May, [facility] [address] [id number] [place] [address] May, [facility] [address] [id number] [place] [address] May, [facility] [address] [id number] [place] [address] Apr, [facility] [address] [id number] [place] [address] Apr, [facility] [address] [id number] [place] [address] Apr, [facility] [address] [id number] [place] [address] Apr, [facility] [address] [id number] [place] [address] Mar, [facility] [address] [id number] [place] [address] Mar, [facility] [address] [id number] [place] [address] Mar, [facility] [address] [id number] [place] [address] Mar, [facility] [address] [id number] [place] [address] Feb, [facility] [address] [id number] [place] [address] Feb, [facility] [address] [id number] [place] [address] Feb, [facility] [address] [id number] [place] [address] Feb, [facility] [id number] [place] [address] Feb, [facility] [address] [id number] [place] [address] Feb, [facility] [address] [id number] [place] [address] Jan, [facility] [address] [id number] [place] [address] Jan, [facility] [address] [facility] [id number] [place] [address] Jan, [facility] [address] [facility] [id number] [place] [address] Jan, [facility] [address] [id number] [place] [address] Dec, [facility] [address] [facility] [id number] [place] [address] Dec, [facility] [address] [id number] [place] [address] Dec, [facility] [address] [id number] [place] [address] Dec, [facility] [address] [id number] [place] [address] Dec, [facility] [address] [id number] [place] [address] Dec, [facility] [address] [id number] [place] [address] Oct, [facility] [address] [id number] [place] [address] Oct, [facility] [address] [id number] [place] [address] September, [facility] [address] [id number] [place] [address] September, [facility] [address] [facility] [id number] [place] [address] September, [facility] [address] [id number] [place] [address] September, [facility] [address] [id number] [place] [address] September, [facility] [address] [id number] [place] [address] September, [facility] [address] [id number] [place] [address] Aug, [facility] [address] [id number] [place] [address] Aug, [facility] [address] [id number] [place] [address] Aug, [facility] [address] [id number] [place] [address] Aug, [facility] [address] [id number] [place] [address] Jul, [facility] [address] [id number] [place] [address] Jul, [facility] [address] [id number] [place] [address] Jun, [facility] [address] [id number] [place] [address] Jun, [facility] [address] [id number] [place] [address] May, [facility] [address] [id number] [place] [address] May, [facility] [address] [id number] [place] [address] Jan, [facility] [address] [id number] [place] [address] Dec, [facility] [address] [id number] [place] [address] Jun, [facility] [address] [id number] [place] [address] May, [facility] [address] [id number] [place] [address] Nov, [facility] [address] [id number] [place] [address] September, [facility] [address] [id number] [place] [address] Aug, [facility] [address] [id number] [place] [address] Aug, [facility] [address] [id number] [place] [address] Aug, [facility] [address] [id number] [place] [address] Aug, [facility] [id number] [place] [address] Nov, [facility] [id number] [place] [address] Oct, [facility] [id number] [place] [address] Jul, [facility] [id number] [place] [address] Feb, [facility] [id number] [place] [address] Feb, [facility] [address] [id number] [place] [address] Apr, [facility] [id number] [place] [address] Apr, [facility] [address] [id number] [place] [address] Feb, [facility] [address] [id number] [place] [address] Feb, [facility] [address] [id number] [place] [address] Jul, IMMUNIZATIONS No Known Immunizations SOCIAL HISTORY [...]
--- OUTSIDE RECORDS SUMMARY | 2019-09-09 08:35 | XMS REPORT ---
Author Author Sahil Slade Doctor Organization [facility] Address Unknown Phone Unavailable Care Team Providers Care Lead Consultant Name Role Phone Migration, Doctor Unavailable Unavailable PROBLEMS Type Condition ICD9-CM Code [id number] Code Onset Dates Condition S tatus SNOMED Code Problem Restless legs syndrome G25.81 Active 330802955 Problem GERD (gastroesophageal reflux disease) K21.9 Active 849482715 Problem Sinusitis, unspecified chronicity, unspecified location J32.9 Active 62753001 Problem COPD (chronic obstructive pulmonary disease) J44.9 Active 57930359 Problem Ulcer of right foot, unspecified ulcer stage L97.5 19 Active 45261794 Problem DM neuro manif type II E11.49 Active 66982097 Problem Constipation, unspecified constipation type K59.00 Active 70492991 Problem Schizoaffective disorder, depressive type F25.1 Active 66267124 Problem PAD (peripheral artery disease) I73.9 Active 898698202 Problem Chronic hepatitis C without hepatic coma B18.2 Active 849389439 Problem Polyneuropathy G62.9 Active 04368 000 Problem Alcohol use disorder, severe, dependence F10.20 Active 89567948 Problem Methamphetamine use disorder, severe, 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 Active 032737337 Problem Morbid (severe) obesity due to excess calories E66 .01 Active 857912384 Problem Neuropathy G62.9 Active 191839691 Problem ED (erectile dysfunction) N52.9 Acti ve 902231424 Problem 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 Active 456954647 Problem Substance abuse F19.10 Active 6621 4007 Problem Personality disorder F60.9 Active 79686371 Problem HTN (hypertension) I10 Active 3 0009605 Problem Cannabis use disorder, severe, dependence F12.20 Active 20668126 Problem Ulcer of toe of right foot, unspecified ulcer stage L97.519 Active 743403955 Problem Amputated toe of right foot S98.131A Ac tive 819824514 Problem Hammer toe, unspecified laterality M20.40 Active 992381873 ALLERGIES No Information ENCOUNTERS Encounter Location Date Diagnosis [facility] [address] [address] Jun, [facility] [address] [address] Jun, [facility] [address] [address] Jun, [facility] [address] [address] Jun, Polyneuropathy G62.9 [facility] [address] [address] May, [facility] [address] [address] May, Foot callus L84 [facility] [address] [address] May, [facility] [address] [address] May, [facility] [address] [address] May, [facility] [address] [address] May, Polyneuropathy G62.9 ; HTN (hypertension ) I10 ; Schizoaffective disorder, depressive type F25.1 ; PAD (peripheral artery disease) I73.9 ; COPD (chronic obstructive pulmonary disease) J44.9 ; Amputated toe of right foot S98.131A ; Methamphetamine use disorder, severe, 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 and Type 2 diabetes mellitus with other diabetic neurological complication E11.49 [facility] [address] [address] May, [facility] [address] [address] May, [facility] [address] [address] May, [facility] [id number] [place] [address] May, [facility] [id number] [place] [address] May, [facility] [address] [place] [address] May, Chronic hepatitis C without hepatic coma B18.2 and HTN (hypertension) I10 [facility] [address] [place] [address] May, Neuropathy G62.9 [facility] [id number] [place] [address] Apr, [address] [place] [address] Apr, [facility] [id number] [place] [address] Apr, [facility] [id number] [place] [address] Apr, [facility] [id number] [place] [address] Apr, [facility] [address] [address] Apr, [facility] [id number] [place] [address] Apr, [facility] [address] [place] [address] Apr, Ulcer of right foot, unspecified ulcer s tage L97.519 ; Type 2 diabetes mellitus with other diabetic neurological complication E11.49 ; Onychomycosis B35.1 and Hammer toe, unspecified laterality M20.40 [facility] [address] [place] [address] Apr, [facility] [address] [place] [address] Apr, HTN (hypertension) I10 and Ulcer of toe of right foot, unspecified ulcer stage L97.519 [place] [address] [address] Apr, [place] [address] [address] Apr, Schizoaffective disorder, depressive typ e F25.1 ; Other jail (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.899 and Stimulant use disorder F15.90 [place] [address] [address] Apr, [place] [address] [address] Apr, [place] [address] [address] Apr, [address] [address] Mar, Pre-ulcerative calluses L[address] [address] Mar, HTN (hypertension) I10 ; DM neuro manif type II E11.49 ; Morbid (severe) obesity due to excess calories E66.01 and Polyneuropathy G62.9 [place] [address] [address] Mar, [place] [address] [address] Mar, [address] [address] Mar, Onychomycosis B35.1 ; Callus of foot L84 and Hammer toe, unspecified laterality M20.[address] [address] Mar, Neuropathy G62.[address] [address] Mar, [address] [address] Mar, [facility] [address] [address] Mar, [facility] [address] [facility] [id number] [place] [address] Mar, Constipation, unspecified co nstipation type K59.00 [place] [address] [address] Mar, [place] [address] [address] Mar, [place] [address] [address] Mar, Chronic hepatitis C without hepatic coma B18.2 ; High risk medication use Z79.899 and Encounter for immunization Z23 [place] [address] [address] Mar, [place] [address] [address] Mar, Neuropathy G62.9 [facility] [address] [place] [address] [id number] [place] [address] Mar, High risk sexual behavior, u nspecified type Z72.51 [place] [address] [address] Feb, Callus of foot L84 [place] [address] [address] Feb, Callus of foot L84 [place] [address] [address] Feb, [place] [address] [address] Feb, [place] [address] [place] [address] Feb, Methamphetamine use disorder, severe, 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 ; Alcohol use disorder, severe, dependence F10.20 and Cannabis use disorder, severe, dependence F12.20 [facility] [place] [facility] [address] [address] Feb, Chronic hepatitis C without hepatic coma B18.2 [facility] [address] [place] [address] Feb, Methamphetamine use disorder, severe, 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 ; Alcohol use disorder, severe, dependence F10.20 and Cannabis use disorder, severe, dependence F12.20 [facility] [address] [address] [id number] Feb, [facility] [address] [place] [address] Feb, Chronic hepatitis C without hepatic coma B18.2 [place] [id number] Feb, Methamphetamine use disorder, severe, 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 ; Alcohol use disorder, severe, dependence F10.20 and Cannabis use disorder, severe, dependence F12.20 [place] [address] [place] [address] Feb, [place] [address] [place] [address] [address] Feb, [place] [address] Feb, [place] [address] [place] [address] [id number] Feb, [facility] [address] [place] [address] Feb, Neuropathy G62.9 [place] [address] Feb, Schizoaffective disorder, depressive typ e F25.1 ; Other 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 inspector (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.899 and Stimulant use disorder F15.90 [place] [id number] Feb, Onychomycosis B35.1 and Neuropathy G62.9 [address] [place] [address] Feb, [facility] [address] [address] Feb, [facility] [address] [address] Feb, [facility] [address] [place] [address] Feb, Methamphetamine use disorder, severe, 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 ; Alcohol use disorder, severe, dependence F10.20 and Cannabis use disorder, severe, dependence F12.20 [facility] [address] [address] Feb, Chronic hepatitis C without hepatic coma B18.2 and Encounter for immunization Z23 [place] [address] [address] Jan, [facility] [address] [address] Jan, [facility] [address] [address] Jan, [facility] [address] [place] [address] Jan, Methamphetamine use disorder, severe, 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 ; Alcohol use disorder, severe, dependence F10.20 and Cannabis use disorder, severe, dependence F12.20 [place] [address] [address] Jan, [facility] [address] [address] Jan, [facility] [address] [address] Jan, History of amputation Z89.9 [facility] [address] [facility] [id number] [place] [address] Jan, [facility] [address] [address] Jan, [facility] [address] [address] 20 Jan, 2019 [facility] [address] [place] [address] 19 Jan, 2019 [facility] [address] [place] [address] 18 Jan, 2019 [facility] [address] [address] 18 Jan, 2019 [facility] [address] [place] [address] 18 Jan, 2019 [facility] [address] [address] 18 Jan, 2019 [facility] [address] [place] [address] 18 Jan, 2019 Methamphetamine use disorder, severe, 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 ; Alcohol use disorder, severe, dependence F10.20 and Cannabis use disorder, severe, dependence F12.20 [place] [address] [address] 18 Jan, 2019 [facility] [address] [address] 16 Jan, 2019 [facility] [address] [place] [address] 13 Jan, 2019 [facility] [address] [place] [address] 11 Jan, 2019 Methamphetamine use disorder, severe, 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 ; Alcohol use disorder, severe, dependence F10.20 and Cannabis use disorder, severe, dependence F12.20 [facility] [address] [place] [address] 06 Jan, 2019 Methamphetamine use disorder, severe, 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 ; Cannabis use disorder, severe, dependence F12.20 and Alcohol use disorder, severe, dependence F10.20 [facility] [address] [address] 06 Jan, 2019 Chronic hepatitis C without hepatic coma B18.2 [facility] [address] [address] Jan, Neuropathy G62.9 [place] [address] [address] Jan, [place] [address] [address] Jan, [facility] [address] [address] Jan, Chronic hepatitis C without hepatic coma B18.[address] [address] Dec, Right foot pain M79.[address] [address] Dec, Schizoaffective disorder, depressive typ e F25.1 ; Other jail (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.899 and Stimulant use disorder F15.[address] [address] Dec, [facility] [address] [place] [address] Dec, Methamphetamine use disorder, severe, 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 ; Alcohol use disorder, severe, dependence F10.20 and Cannabis use disorder, severe, dependence F12.[address] [address] Dec, [address] [address] Dec, [facility] [address] [facility] [address] [id number] [place] [address] Dec, Ulcer of toe of right foot, unspecified ulcer stage L97.[address] [address] Dec, [facility] [address] [place] [address] Dec, Methamphetamine use disorder, severe, 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 ; Cannabis use disorder, severe, dependence F12.20 and Alcohol use disorder, severe, dependence F10.[id number] [place] [address] Dec, [facility] [address] [facility] [id number] [place] [address] Dec, Allergic contact dermatitis, unspecified trigger L23.9 and Ankle swelling, unspecified laterality M25.473 [facility] [address] [address] Dec, [place] [address] [address] Dec, [facility] [address] [place] [address] Dec, Methamphetamine use disorder, severe, 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 ; Alcohol use disorder, severe, dependence F10.20 and Cannabis use disorder, severe, dependence F12.20 [place] [address] [address] Dec, [place] [address] [address] Dec, [place] [address] [address] Dec, Diarrhea of presumed infectious origin R 19.7 ; Chronic hepatitis C without hepatic coma B18.2 and Nail fungus B35.1 [place] [address] [address] Dec, Neuropathy G62.9 [place] [address] [address] Dec, [place] [address] [address] Nov, Schizoaffective disorder, depressive typ e F25.1 ; Other jail (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.899 and Stimulant use disorder F15.90 [place] [address] [address] Nov, [facility] [address] [place] [address] Nov, Substance abuse F19.10 [facility] [address] [address] Nov, [facility] [address] [address] Nov, Chronic hepatitis C without hepatic coma B18.2 [facility] [address] [address] Nov, [facility] [address] [address] Nov, Fatigue, unspecified type R53.83 [facility] [address] [address] Nov, Schizoaffective disorder, depressive typ e F25.1 ; Other watermelon inspector (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.899 and Stimulant use disorder F15.90 [place] [address] [address] Nov, [facility] [address] [address] Nov, [facility] [address] [address] Nov, [facility] [address] [address] Oct, Neuropathy G62.9 [facility] [address] [address] Oct, Prediabetes R73.03 ; Other watermelon inspector (cu rrent) drug therapy Z79.899 and Chronic hepatitis C without hepatic coma B18.2 [facility] [address] [address] Oct, Schizoaffective disorder, depressive typ e F25.1 and Other watermelon inspector (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.899 [facility] [address] [place] [id number] [place] [address] Oct, [facility] [address] [facility] [id number] [place] [address] 14 Oct, 2018 Sore throat J02.9 and Acute non-recurrent frontal sinusitis J01.10 [facility] [address] [address] Oct, [facility] [address] [facility] [id number] [place] [address] Oct, Acute URI J06.9 [facility] [address] [address] Oct, [facility] [address] [address] Oct, Schizoaffective disorder, depressive typ e F25.1 [facility] [address] [address] Oct, [facility] [address] [address] Oct, Substance abuse F19.10 [facility] [address] [facility] [id number] [place] [address] Oct, Bronchitis J40 [address] [place] [address] September, Back pain M54.9 [facility] [id number] [place] [address] September, Schizoaffective disorder, depressive typ e F25.1 [facility] [id number] [place] [address] September, [address] [place] [address] September, Substance abuse F19.10 [facility] [id number] [place] [address] September, [facility] [address] [address] September, Schizoaffective disorder, depressive typ e F25.1 [facility] [address] [address] September, Substance abuse F19.10 [facility] [address] [address] September, [facility] [address] [address] September, Substance abuse F19.10 [place] [address] [address] September, Encounter for Medicare annual wellness e xam Z00.00 ; Ulcer of right foot, unspecified ulcer stage L97.519 ; Type 2 diabetes mellitus with other diabetic neurological complication E11.49 ; COPD (chronic obstructive pulmonary disease) J44.9 ; PAD (peripheral artery disease) I73.9 ; Schizoaffective disorder, depressive type F25.1 and Routine adult health maintenance Z00.00 [place] [address] [address] September, Schizoaffective disorder, depressive typ e F25.1 [place] [address] [address] September, [place] [address] [address] September, [place] [address] [address] September, Schizoaffective disorder, depressive typ e F25.1 [place] [address] [address] Aug, [facility] [address] [facility] [id number] [place] [address] Aug, Rib pain on left side R07.81 and Closed fracture of multiple ribs of left side with routine healing, subsequent encounter S22.42XD [facility] [address] [address] Aug, [facility] [address] [address] Aug, [facility] [id number] [place] [address] Jul, [facility] [address] [address] Jul, [facility] [address] [address] Jul, [facility] [address] [address] Jul, Back pain M54.9 [facility] [id number] [place] [address] Jul, Polyneuropathy in diseases classified el sewhere G63 [facility] [address] [facility] [id number] [place] [address] Jul, Constipation, unspecified co nstipation type K59.00 and Burn T30.0 [facility] [address] [id number] [place] [address] Jul, [facility] [address] [address] Jun, 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 [facility] [id number] [place] [address] Jun, Back pain M54.9 [facility] [address] [address] Jun, 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 [facility] [id number] [place] [address] Jun, [facility] [address] [address] Jun, [facility] [id number] [place] [address] Jun, [facility] [address] [address] May, [facility] [address] [facility] [place] [address] May, Back pain M54.9 [facility] [address] [id number] [place] [address] May, [facility] [address] [place] [id number] [place] [address] May, 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 ; Chronic hepatitis C without hepatic coma B18.2 and HTN (hypertension) I10 [facility] [address] [facility] [place] [address] Apr, Back pain M54.9 [facility] [address] [place] [id number] [place] [address] Apr, [facility] [address] [address] Apr, Polyneuropathy in diseases classified el sewhere G63 [facility] [address] [id number] [place] [address] Mar, Back pain M54.9 [facility] [address] [place] [id number] [place] [address] Mar, [facility] [address] [place] [id number] [place] [id number] Mar, Back pain M54.9 [facility] [address] [id number] [place] [address] Mar, [facility] [id number] [place] [id number] Mar, [facility] [address] [address] Mar, Polyneuropathy in diseases classified el sewhere G63 [facility] [address] [id number] [place] [address] Feb, Back pain M54.9 [facility] [address] [id number] Jan, Back pain M54.9 [facility] [address] [address] Jan, [facility] [address] [address] Jan, [facility] [address] [address] Dec, Back pain M54.9 [facility] [address] [address] Dec, [facility] [address] [id number] Dec, Upper respiratory tract infection, unspe cified type J06.9 [facility] [address] [id number] Dec[facility] [address] [facility] [id number] [address] Dec, Acute suppurative otitis med ia of right ear without spontaneous rupture of tympanic membrane, recurrence not specified H66.001 and Acute nasopharyngitis [address] [address] Dec, Back pain M54.9 [facility] [facility] [address] [address] Dec, Foot infection L08.9 and Type 2 diabetes mellitus with other diabetic neurological complication E11.49 [facility] [address] [address] Nov, Cellulitis of toe of right foot L03.031 ; Polyneuropathy in diseases classified elsewhere G63 and HTN (hypertension) I10 [facility] [address] [address] Nov, [facility] [address] [address] Nov, [facility] [id number] [place] [address] Nov, Back pain M54.9 [facility] [id number] [place] [address] Nov, Shortness of breath R06.02 [facility] [id number] [place] [address] Nov, [facility] [id number] [place] [address] Oct, [facility] [id number] [place] [address] Oct, [facility] [id number] [place] [address] Oct, [facility] [id number] [place] [address] Oct, [facility] [id number] [place] [address] Oct, [facility] [id number] [place] [address] Oct, Back pain M54.9 [facility] [id number] [place] [address] Oct, Back pain M54.9 [facility] [id number] [place] [address] Oct, [facility] [id number] [place] [address] September, [facility] [id number] [place] [address] September, [facility] [id number] [place] [address] September, [facility] [id number] [place] [address] September, 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 and Hypotension, unspecified hypotension type I95.9 [facility] [address] [address] September, [facility] [address] [address] September, [facility] [address] [address] September, Back pain M54.9 [facility] [address] [address] Aug, [facility] [address] [address] Aug, Acute cystitis with hematuria N30.01 ; U lcer of right foot, unspecified ulcer stage L97.519 ; HTN (hypertension) I10 ; COPD (chronic obstructive pulmonary disease) J44.9 and DM neuro manif type II E11.49 [facility] [address] [address] Aug, Back pain M54.9 [facility] [address] [address] Jul, [facility] [address] [address] Jul, Back pain M54.9 [facility] [address] [address] Jul, [facility] [facility] [address] [address] Jul, DM neuro manif type II E11.49 and Ulcer of right foot, unspecified ulcer stage L97.519 [facility] [address] [address] Jun, [facility] [address] [address] Jun, [facility] [address] [address] May, 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 ; GERD (gastroesophageal reflux disease) K21.9 and PAD (peripheral artery disease) I73.9 [facility] [address] [address] May, Decubital ulcer L89.90 ; Diabetes E11.9 and GERD (gastroesophageal reflux disease) K21.9 [facility] [address] [address] May, [facility] [address] [address] Apr, [facility] [address] [address] Mar, [facility] [address] [address] Mar, [facility] [address] [address] Feb, [facility] [address] [address] Feb, [facility] [address] [address] Jan, [facility] [address] [address] Jan, HTN (hypertension) I10 [facility] [address] [address] Jan, [facility] [address] [address] Dec, Back pain M54.9 [facility] [address] [address] Dec, Back pain M54.9 [facility] [address] [facility] [id number] [place] [address] Dec, Encounter for immunization Z 23 and Puncture wound of right foot, initial encounter S91.331A [facility] [address] [address] Dec, [facility] [address] [address] Nov, [facility] [address] [address] Nov, COPD (chronic obstructive pulmonary dise ase) J44.9 [facility] [address] [address] Nov, [facility] [address] [address] Oct, [facility] [address] [address] Oct, [facility] [address] [address] September, Onychomycosis B35.1 and DM neuro manif t ype II E11.49 [facility] [address] [address] September, [facility] [address] [address] Aug, [facility] [address] [address] Jul, Sinusitis, unspecified chronicity, unspe cified location J32.9 and Cough R05 [facility] [address] [address] Jul, Back pain M54.9 [facility] [address] [address] 14 Jun, 2016 Back pain M54.9 [facility] [address] [address] Jun, COPD (chronic obstructive pulmonary dise ase) J44.9 [facility] [address] [address] May, [facility] [address] [address] May, [facility] [id number] [place] [address] 17 May, 2016 Back pain M54.9 [facility] [address] [address] 16 May, 2016 [facility] [address] [address] 13 May, 2016 [facility] [address] [address] 12 May, 2016 Diabetes E11.9 [facility] [address] [address] 11 May, 2016 Diabetes E11.9 ; GERD [...] Need for hepatitis C screening test Z11.59 [facility] [facility] [address] [address] May, HTN (hypertension) I10 [place] [facility] [address] [address] Apr, [facility] [address] [address] Apr, [facility] [address] [address] Apr, [facility] [address] [address] Apr, [facility] [address] [address] Apr, [facility] [address] [address] Mar, [facility] [address] [address] Mar, [facility] [address] [address] Mar, [facility] [address] [address] Mar, [facility] [address] [address] Mar, Dental examination Z01.20 [place] [address] [address] Feb, [place] [facility] [address] [address] Feb, [place] [facility] [address] [address] Feb, Back pain M54.9 [place] [facility] [address] [address] Jan, [place] [facility] [address] [address] Jan, [place] [facility] [address] [address] Dec, Diabetes E11.9 ; GERD (gastroesophageal reflux disease) K21.9 ; ED (erectile dysfunction) N52.9 ; HTN (hypertension) I10 ; Insomnia G47.00 ; COPD (chronic obstructive pulmonary disease) J44.9 ; Neuropathy G62.9 and Bipolar depression F31.30 [place] [facility] [address] [address] Dec, 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 and Onychomycosis B35.1 [place] [facility] [address] [address] Dec, [place] [facility] [address] [address] Dec, [place] [facility] [address] [address] Dec, [place] [id number] [place] [address] Dec, [facility] [address] [address] Nov, [facility] [id number] [place] [address] Nov, [facility] [id number] [place] [address] Oct, [facility] [address] [address] Oct, [facility] [address] [address] Oct, Back pain M54.9 [facility] [address] [address] Oct, [facility] [address] [address] Oct, [facility] [id number] [place] [address] Oct, [facility] [address] [address] Oct, HTN (hypertension) I10 [facility] [address] [address] Oct, Back pain M54.9 [facility] [address] [address] Oct, Chronic pain syndrome G89.4 [facility] [address] [address] September, Back pain M54.9 [facility] [address] [address] September, HTN (hypertension) I10 [facility] [id number] [place] [address] Aug, Porokeratosis Q82.8 ; Onychomycosis B35. 1 and Type 2 diabetes mellitus with other diabetic neurological complication E11.49 [facility] [address] [address] Aug, GERD (gastroesophageal reflux disease) K 21.9 ; Diabetes E11.9 ; HTN (hypertension) I10 ; Insomnia G47.00 ; Restless legs syndrome G25.81 ; COPD (chronic obstructive pulmonary disease) J44.9 ; Back pain M54.9 and Bipolar 1 disorder F31.9 [facility] [address] [address] Aug, [facility] [address] [address] Aug, [facility] [address] [address] Aug, [facility] [address] [address] Aug, [facility] [address] [address] Jul, [facility] [id number] [place] [address] Jul, [facility] [address] [address] Jul, [facility] [address] [address] Jul, [facility] [address] [address] 15 Jul, 2015 [facility] [address] [address] Jul, [facility] [address] [address] 17 Jun, 2015 Decubital ulcer L89.90 ; Diabetes E11.9 ; Back pain M54.9 ; HTN (hypertension) I10 and COPD (chronic obstructive pulmonary disease) J44.9 [facility] [address] [address] Jun, [place] [facility] [address] [address] Jun, [place] [address] [address] Jun, [place] [address] [address] Jun, [place] [address] [address] Jun, Diabetes E11.9 ; Insomnia G47.00 ; Decub ital ulcer L89.90 ; GERD (gastroesophageal reflux disease) K21.9 ; Back pain M54.9 ; Superficial fungus infection of skin B36.9 and HTN (hypertension) I10 [id number] [id number] Jun, Dental examination Z01.[address] [address] May, [place] [facility] [address] [address] May, [address] [address] May, [address] [address] May, Diabetes E11.9 ; HTN (hypertension) I10 and Decubital ulcer L89.[address] [address] May, HTN (hypertension) I10 ; Decubital ulcer L89.90 and Diabetes E11.[address] [address] Apr, Diabetes E11.9 ; GERD (gastroesophageal reflux disease) K21.9 ; Back pain M54.9 ; HTN (hypertension) I10 ; Restless legs syndrome G25.81 and Decubital ulcer L89.90 [id number] [place] [address] Apr, [address] [address] Apr, Diabetes E11.9 ; HTN (hypertension) I10 ; Restless legs syndrome G25.81 ; GERD (gastroesophageal reflux disease) K21.9 and COPD (chronic obstructive pulmonary disease) J44.9 [place] [address] [address] Mar, [place] [address] [address] Mar, [address] [address] Mar, Diabetes E11.9 ; Abscess L02.91 and Rest less legs syndrome G25.[address] [address] Mar, [place] [address] [address] Feb, GERD (gastroesophageal reflux disease) K 21.9 ; Back pain M54.9 ; ED (erectile dysfunction) N52.9 ; Diabetes E11.9 ; HTN (hypertension) I10 and Insomnia G47.00 [place] [address] [address] Feb, [address] [address] Feb, [place] [address] [address] Jan, [address] [address] Jan, Diabetes 250.00 ; Nondependent cannabis abuse, continuous 305.21 ; Cough 786.2 ; Schizoaffective disorder, unspecified 295.70 ; Sciatica 724.3 ; Other, mixed, or unspecified nondependent drug abuse, unspecified 305.90 ; Chronic pain 338.29 ; GERD (gastroesophageal reflux disease) 530.81 and HTN (hypertension) 401.9 [facility] [address] [address] Jan, [facility] [address] [address] Jan, [facility] [address] [address] Jan, Chronic pain associated with significant psychosocial dysfunction 338.4 ; Diabetes mellitus without mention of complication, type I [juvenile type], uncontrolled 250.03 ; Benign essential hypertension 401.1 ; Schizoaffective disorder, unspecified 295.70 ; Wheezing 786.07 ; Ear ache 388.70 ; Cough 786.2 ; Sciatica 724.3 and Foot pain, bilateral 729.5 [facility] [address] [address] Dec, [place] [address] [address] Dec, [facility] [address] [address] Dec, [facility] [address] [address] Dec, [facility] [address] [address] Dec, [facility] [address] [address] Nov, Elevated liver enzymes 790.5 [facility] [address] [address] Nov, [facility] [address] [address] Nov, [facility] [address] [address] Nov, [facility] [address] [address] Nov, Benign essential hypertension 401.1 ; Di abetes mellitus without mention of complication, type I [juvenile type], uncontrolled 250.03 and Nondependent cannabis abuse, continuous 305.21 [facility] [id number] [place] [address] Oct, Cellulitis 682.9 and Benign essential hy pertension 401.1 [facility] [id number] [place] [address] Oct, [facility] [id number] [place] [address] September, [facility] [id number] [place] [address] September, [facility] [id number] [place] [address] Aug, [facility] [id number] [place] [address] Aug, [facility] [id number] [place] [address] Aug, [facility] [id number] [place] [address] Aug, [facility] [id number] [place] [address] Jul, [facility] [id number] [place] [address] Jul, [facility] [id number] [place] [address] Jul, [facility] [id number] [place] [address] Jul, [facility] [id number] [place] [address] Jul, [facility] [id number] [place] [address] Jul, [facility] [id number] [place] [address] Jun, [facility] [id number] [place] [address] Jun, [facility] [place] [facility] [address] [id number] [place] [address] Jun, [facility] [place] [facility] [address] [id number] [place] [address] Jun, [facility] [place] [facility] [address] [id number] [place] [address] Jun, [facility] [place] [facility] [address] [id number] [place] [address] May, [facility] [place] [facility] [address] [id number] [place] [address] May, [facility] [place] [facility] [address] [id number] [place] [address] May, [facility] [place] [facility] [address] [id number] [place] [address] May, [facility] [place] [facility] [address] [id number] [place] [address] May, [facility] [place] [facility] [address] [id number] [place] [address] May, [facility] [place] [facility] [address] [id number] [place] [address] May, [facility] [place] [facility] [address] [id number] [place] [address] May, [facility] [place] [facility] [address] [id number] [place] [address] Apr, [facility] [place] [facility] [address] [id number] [place] [address] Apr, [facility] [place] [facility] [address] [id number] [place] [address] Apr, [facility] [place] [facility] [address] [id number] [place] [address] Apr, [facility] [place] [facility] [address] [id number] [place] [address] Mar, [facility] [place] [facility] [address] [id number] [place] [address] Mar, [facility] [place] [facility] [address] [id number] [place] [address] Mar, [facility] [place] [facility] [address] [id number] [place] [address] Mar, [facility] [place] [facility] [address] [id number] [place] [address] Feb, [facility] [place] [facility] [address] [facility] [id number] [place] [address] Feb, [facility] [place] [facility] [address] [id number] [place] [address] Feb, [facility] [place] [facility] [address] [id number] [place] [address] Feb, [facility] [place] [facility] [address] [id number] [place] [address] Feb, [facility] [place] [facility] [address] [id number] [place] [address] Feb, [facility] [place] [facility] [address] [id number] [place] [address] Jan, [facility] [place] [facility] [address] [id number] [place] [address] Jan, 2013 [facility] [place] [facility] [address] [id number] [place] [address] Jan, [facility] [place] [facility] [address] [id number] [place] [address] Jan, [facility] [place] [facility] [address] [id number] [place] [address] Dec, [facility] [place] [facility] [address] [id number] [place] [address] Dec, [facility] [place] [facility] [address] [id number] [place] [address] Dec, [facility] [place] [facility] [address] [id number] [place] [address] Dec, [facility] [place] [facility] [address] [facility] [id number] [place] [address] Dec, [facility] [place] [facility] [address] [facility] [address] [id number] [place] [address] Dec, [facility] [place] [facility] [address] [id number] [place] [address] Oct, [facility] [place] [facility] [address] [facility] [address] [id number] [place] [address] Oct, [facility] [place] [facility] [address] [facility] [address] [id number] [place] [address] September, [facility] [place] [facility] [address] [id number] [place] [address] September, [facility] [place] [facility] [address] [id number] [place] [address] September, [facility] [place] [facility] [address] [id number] [place] [address] September, [facility] [place] [facility] [address] [facility] [address] [id number] [place] [address] September, [facility] [place] [facility] [address] [id number] [place] [address] September, [facility] [place] [facility] [address] [id number] [place] [address] Aug, [facility] [place] [facility] [address] [id number] [place] [address] Aug, [facility] [place] [facility] [address] [facility] [address] [id number] [place] [address] Aug, [facility] [place] [facility] [address] [id number] [place] [address] Aug, [facility] [place] [facility] [address] [id number] [place] [address] Jul, [facility] [place] [facility] [address] [id number] [place] [address] Jul, [facility] [place] [facility] [address] [id number] [place] [address] Jun, [facility] [place] [facility] [address] [id number] [place] [address] Jun, [facility] [place] [facility] [address] [id number] [place] [address] May, [facility] [place] [facility] [address] [id number] [place] [address] May, [facility] [place] [facility] [address] [id number] [place] [address] Jan, [facility] [place] [facility] [address] [id number] [place] [address] Dec, [facility] [place] [facility] [address] [id number] [place] [address] Jun, [facility] [address] [id number] [place] [address] May, [facility] [place] [facility] [address] [id number] [place] [address] Nov, [facility] [facility] [address] [id number] [place] [address] September, [facility] [address] [id number] [place] [address] Aug, [facility] [address] [id number] [place] [address] Aug, [facility] [address] [id number] [place] [address] Aug, [facility] [address] [id number] [place] [address] Aug, [facility] [id number] [place] [address] Nov, [facility] [address] [id number] [place] [address] Oct, [facility] [address] [id number] [place] [address] Jul, [facility] [address] [id number] [place] [address] Feb, [facility] [address] [id number] [place] [address] Feb, [facility] [address] [id number] [place] [address] Apr, [facility] [address] [id number] [place] [address] Apr, [facility] [address] [id number] [place] [address] Feb, [facility] [address] [id number] [place] [address] Feb, [facility] [address] [id number] [place] [address] Jul, IMMUNIZATIONS No Known Immunizations SOCIAL HISTORY Never Assessed REASON FOR VISIT PLAN OF CARE VITAL SIGNS Blood pressure systolic 130 mmHg 2013-09-30 Blood pressure diastolic 86 mmHg 2013-09-30 MEDICATIONS Unknown Medications RESULTS No Results PROCEDURES Procedure Date Ordered Result Body Site DEBRIDE NAIL, 1-September 30, 2013 INSTRUCTIONS MEDICATIONS ADMINISTERED No Known Medications MEDICAL [...]
--- OUTSIDE RECORDS SUMMARY | 2019-09-09 08:35 | XMS REPORT ---
Author Author Sahil JAMESON NA [facility] Organization [facility] Address [address] [place] [address] Care Team Providers Care Agricultural Technical Officer Name Role Phone MICHAEL CEDILLOMELIZA Unavailable PROBLEMS Type Condition ICD9-CM Code SRI37-FB Code Onset Dates Condition S tatus SNOMED Code Problem Restless legs syndrome G25.81 Active 945914931 Problem GERD (gastroesophageal reflux disease) K21.9 Active 573201991 Problem Sinusitis, unspecified chronicity, unspecified location J32.9 Active 79577849 Problem COPD (chronic obstructive pulmonary disease) J44.9 Active 70665418 Problem Ulcer of right foot, unspecified ulcer stage L97.5 19 Active 67362421 Problem DM neuro manif type II E11.49 Active 75719337 Problem Constipation, unspecified constipation type K59.00 Active 18580152 Problem Schizoaffective disorder, depressive type F25.1 Active 69738517 Problem PAD (peripheral artery disease) I73.9 Active 412945620 Problem Chronic hepatitis C without hepatic coma B18.2 Active 021181505 Problem Polyneuropathy G62.9 Active 19792 000 Problem Alcohol use disorder, severe, dependence F10.20 Active 70826878 Problem Methamphetamine use disorder, severe, 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 Active 851945707 Problem Morbid (severe) obesity due to excess calories E66 .01 Active 728156438 Problem Neuropathy G62.9 Active 787039297 Problem ED (erectile dysfunction) N52.9 Acti ve 940671022 Problem 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 Active 215338461 Problem Substance abuse F19.10 Active 6621 4007 Problem Personality disorder F60.9 Active 79804713 Problem HTN (hypertension) I10 Active 3 2907654 Problem Cannabis use disorder, severe, dependence F12.20 Active 33808483 Problem Ulcer of toe of right foot, unspecified ulcer stage L97.519 Active 995707011 Problem Amputated toe of right foot S98.131A Ac tive 153539954 Problem Hammer toe, unspecified laterality M20.40 Active 053742968 ALLERGIES No Information ENCOUNTERS Encounter Location Date Diagnosis [place] [address] [address] Jun, [facility] [address] [address] Jun, [place] [address] [address] Jun, [place] [address] [address] Jun, [place] [address] [address] Jun, Polyneuropathy G62.9 [place] [address] [address] May, [place] [address] [address] May, Foot callus L84 [place] [address] [address] May, [place] [address] [address] May, [place] [address] [address] May, [place] [address] [address] May, Polyneuropathy G62.9 ; HTN (hypertension ) I10 ; Schizoaffective disorder, depressive type F25.1 ; PAD (peripheral artery disease) I73.9 ; COPD (chronic obstructive pulmonary disease) J44.9 ; Amputated toe of right foot S98.131A ; Methamphetamine use disorder, severe, 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 and Type 2 diabetes mellitus with other diabetic neurological complication E11.49 [place] [address] [address] May, [facility] [address] [place] [address] [id number] [place] [address] May, [facility] [address] [place] [id number] [place] [address] May, [facility] [address] [id number] [place] [address] May, [facility] [address] [address] May, [facility] [address] [address] May, Chronic hepatitis C without hepatic coma B18.2 and HTN (hypertension) I10 [facility] [address] [address] May, Neuropathy G62.9 [facility] [address] [address] Apr, [address] [place] [address] Apr, [facility] [address] [place] [address] [id number] [place] [address] Apr, [facility] [address] [id number] [place] [address] Apr, [facility] [address] [place] [address] [id number] [place] [address] Apr, [facility] [address] [id number] [place] [address] Apr, [facility] [address] [address] Apr, [facility] [address] [address] Apr, Ulcer of right foot, unspecified ulcer s tage L97.519 ; Type 2 diabetes mellitus with other diabetic neurological complication E11.49 ; Onychomycosis B35.1 and Hammer toe, unspecified laterality M20.40 [place] [address] [address] Apr, [place] [address] [address] Apr, HTN (hypertension) I10 and Ulcer of toe of right foot, unspecified ulcer stage L97.519 [place] [address] [address] Apr, [place] [address] [address] Apr, Schizoaffective disorder, depressive typ e F25.1 ; Other retirement (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.899 and Stimulant use disorder F15.90 [place] [address] [address] Apr, [place] [address] [address] Apr, [place] [address] [address] Apr, [place] [address] [address] Mar, Pre-ulcerative calluses L84 [address] [address] Mar, HTN (hypertension) I10 ; DM neuro manif type II E11.49 ; Morbid (severe) obesity due to excess calories E66.01 and Polyneuropathy G62.9 [place] [address] [address] Mar, [place] [address] [address] Mar, [address] [address] Mar, Onychomycosis B35.1 ; Callus of foot L84 and Hammer toe, unspecified laterality M20.40 [place] [address] [address] Mar, Neuropathy G62.9 [facility] [address] [address] Mar, [facility] [address] [address] Mar, [facility] [address] [address] Mar, [facility] [address] [place] [id number] [place] [address] Mar, Constipation, unspecified co nstipation type K59.00 [facility] [address] [address] Mar, [facility] [address] [address] Mar, [facility] [address] [address] Mar, Chronic hepatitis C without hepatic coma B18.2 ; High risk medication use Z79.899 and Encounter for immunization Z23 [facility] [address] [address] Mar, [facility] [address] [address] Mar, Neuropathy G62.9 [facility] [address] [place] [id number] [place] [address] Mar, High risk sexual behavior, u nspecified type Z72.51 [facility] [address] [address] Feb, Callus of foot L84 [place] [address] [address] Feb, Callus of foot L84 [facility] [address] [address] Feb, [facility] [address] [place] [address] Feb, [facility] [address] [place] [address] Feb, Methamphetamine use disorder, severe, 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 ; Alcohol use disorder, severe, dependence F10.20 and Cannabis use disorder, severe, dependence F12.20 [facility] [address] [place] [address] Feb, Chronic hepatitis C without hepatic coma B18.2 [facility] [address] [place] [address] Feb, Methamphetamine use disorder, severe, 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 ; Alcohol use disorder, severe, dependence F10.20 and Cannabis use disorder, severe, dependence F12.20 [place] [address] [place] [address] Feb, [facility] [address] [place] [address] Feb, Chronic hepatitis C without hepatic coma B18.2 [facility] [address] [place], [place] [address] Feb, Methamphetamine use disorder, severe, 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 ; Alcohol use disorder, severe, dependence F10.20 and Cannabis use disorder, severe, dependence F12.20 [place] [address] [place] [id number] Feb, [facility] [address] [place] [address] Feb, [facility] [address] [place] [address] Feb, [facility] [address] [place] [address] Feb, [facility] [address] [place] [address] Feb, Neuropathy G62.9 [facility] [address] [place] [address] Feb, Schizoaffective disorder, depressive typ e F25.1 ; Other retirement (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.899 and Stimulant use disorder F15.90 [place] [address] [address] Feb, Onychomycosis B35.1 and Neuropathy G62.9 [place] [address] [place] [id number] Feb, [place] [address] [place] [address] Feb, [place] [address] [address] Feb, [facility] [address] [place] [address] Feb, Methamphetamine use disorder, severe, 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 ; Alcohol use disorder, severe, dependence F10.20 and Cannabis use disorder, severe, dependence F12.[address] [address] Feb, Chronic hepatitis C without hepatic coma B18.2 and Encounter for immunization Z23 [place] [address] [address] Jan, [place] [address] [address] Jan, [place] [address] [address] Jan, [facility] [address] [place] [address] Jan, Methamphetamine use disorder, severe, 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 ; Alcohol use disorder, severe, dependence F10.20 and Cannabis use disorder, severe, dependence F12.20 [place] [address] [address] Jan, [place] [address] [address] Jan, [place] [address] [address] Jan, History of amputation Z89.9 [facility] [address] [facility] [id number] [place] [address] 21 Jan, 2019 [facility] [address] [address] 20 Jan, 2019 [facility] [address] [address] 20 Jan, 2019 [facility] [address] [address] 19 Jan, 2019 [facility] [address] [address] 18 Jan, 2019 [facility] [address] [address] 18 Jan, 2019 [facility] [address] [address] 18 Jan, 2019 [facility] [address] [address] 18 Jan, 2019 [facility] [address] [place] [address] 18 Jan, 2019 Methamphetamine use disorder, severe, 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 ; Alcohol use disorder, severe, dependence F10.20 and Cannabis use disorder, severe, dependence F12.20 [facility] [address] [address] 18 Jan, 2019 [facility] [address] [address] 16 Jan, 2019 [facility] [address] [address] 13 Jan, 2019 [facility] [address] [place] [address] 11 Jan, 2019 Methamphetamine use disorder, severe, 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 ; Alcohol use disorder, severe, dependence F10.20 and Cannabis use disorder, severe, dependence F12.20 [facility] [address] [place] [address] 06 Jan, 2019 Methamphetamine use disorder, severe, 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 ; Cannabis use disorder, severe, dependence F12.20 and Alcohol use disorder, severe, dependence F10.20 [facility] [address] [address] Jan, Chronic hepatitis C without hepatic coma B18.2 [place] [address] [address] Jan, Neuropathy G62.9 [facility] [address] [address] Jan, [place] [address] [address] Jan, [place] [address] [address] Jan, Chronic hepatitis C without hepatic coma B18.2 [place] [address] [address] Dec, Right foot pain M79.671 [place] [address] [address] Dec, Schizoaffective disorder, depressive typ e F25.1 ; Other manager intermediate (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.899 and Stimulant use disorder F15.90 [place] [address] [address] Dec, [facility] [address] [place] [address] Dec, Methamphetamine use disorder, severe, 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 ; Alcohol use disorder, severe, dependence F10.20 and Cannabis use disorder, severe, dependence F12.20 [place] [address] [address] Dec, [place] [address] [address] Dec, [facility] [address] [facility] [id number] [address] [place] [address] Dec, Ulcer of toe of right foot, unspecified ulcer stage L97.519 [place] [address] [address] Dec, [facility] [address] [place] [address] Dec, Methamphetamine use disorder, severe, 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 ; Cannabis use disorder, severe, dependence F12.20 and Alcohol use disorder, severe, dependence F10.20 [facility] [address] [address] Dec, [facility] [address] [facility] [id number] [place] [address] Dec, Allergic contact dermatitis, unspecified trigger L23.9 and Ankle swelling, unspecified laterality M25.473 [place] [address] [address] Dec, [facility] [address] [address] Dec, [facility] [address] [place] [address] Dec, Methamphetamine use disorder, severe, 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 ; Alcohol use disorder, severe, dependence F10.20 and Cannabis use disorder, severe, dependence F12.20 [place] [address] [address] Dec, [place] [address] [address] Dec, [place] [address] [address] Dec, Diarrhea of presumed infectious origin R 19.7 ; Chronic hepatitis C without hepatic coma B18.2 and Nail fungus B35.1 [facility] [address] [address] Dec, Neuropathy G62.9 [place] [address] [address] Dec, [place] [address] [place] [id number] Nov, Schizoaffective disorder, depressive typ e F25.1 ; Other manager intermediate (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.899 and Stimulant use disorder F15.90 [facility] [address] [address] Nov, [facility] [address] [place] [address] Nov, Substance abuse F19.10 [facility] [address] [address] Nov, [facility] [address] [address] Nov, Chronic hepatitis C without hepatic coma B18.2 [facility] [address] [address] Nov, [facility] [address] [address] Nov, Fatigue, unspecified type R53.83 [facility] [address] [address] Nov, Schizoaffective disorder, depressive typ e F25.1 ; Other retirement (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.899 and Stimulant use disorder F15.90 [facility] [address] [address] Nov, [facility] [address] [address] Nov, [facility] [address] [address] Nov, [facility] [address] [address] Oct, Neuropathy G62.9 [facility] [address] [address] Oct, Prediabetes R73.03 ; Other manager intermediate (cu rrent) drug therapy Z79.899 and Chronic hepatitis C without hepatic coma B18.2 [facility] [address] [address] Oct, Schizoaffective disorder, depressive typ e F25.1 and Other manager intermediate (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.899 [facility] [address] [id number] [place] [address] 20 Oct, 2018 [facility] [address] [facility] [id number] [address] [place] [address] 14 Oct, 2018 Sore throat J02.9 and Acute non-recurrent frontal sinusitis J01.10 [facility] [address] [address] Oct, [facility] [address] [facility] [id number] [address] [place] [address] 07 Oct, 2018 Acute URI J06.9 [facility] [address] [address] Oct, [facility] [address] [address] Oct, Schizoaffective disorder, depressive typ e F25.1 [facility] [address] [address] Oct, [facility] [address] [address] Oct, Substance abuse F19.10 [facility] [address] [place] [address] Oct, Bronchitis J40 [address] [place] [address] September, Back pain M54.9 [facility] [address] [address] September, Schizoaffective disorder, depressive typ e F25.1 [facility] [address] [address] September, [address] [place] [address] September, Substance abuse F19.10 [facility] [address] [address] September, [facility] [address] [address] September, Schizoaffective disorder, depressive typ e F25.1 [facility] [address] [address] September, Substance abuse F19.10 [facility] [address] [address] September, [facility] [address] [address] September, Substance abuse F19.10 [place] [address] [address] September, Encounter for Medicare annual wellness e xam Z00.00 ; Ulcer of right foot, unspecified ulcer stage L97.519 ; Type 2 diabetes mellitus with other diabetic neurological complication E11.49 ; COPD (chronic obstructive pulmonary disease) J44.9 ; PAD (peripheral artery disease) I73.9 ; Schizoaffective disorder, depressive type F25.1 and Routine adult health maintenance Z00.00 [facility] [address] [address] September, Schizoaffective disorder, depressive typ e F25.1 [facility] [address] [address] September, [facility] [address] [address] September, [facility] [address] [address] September, Schizoaffective disorder, depressive typ e F25.1 [facility] [address] [address] Aug, [facility] [address] [facility] [id number] [address] [place] [address] Aug, Rib pain on left side R07.81 and Closed fracture of multiple ribs of left side with routine healing, subsequent encounter S22.42XD [facility] [address] [place] [id number] [place] [address] Aug, [facility] [address] [address] Aug, [facility] [address] [address] Jul, [facility] [address] [address] Jul, [facility] [address] [address] Jul, [facility] [address] [address] Jul, Back pain M54.9 [place] [address] [address] Jul, Polyneuropathy in diseases classified el sewhere G63 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 [facility] [address] [place] [address] [id number] [place] [address] Jun, Back pain M54.9 [facility] [address] [address] Jun, 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 [facility] [address] [place] [id number] [place] [address] Jun, [facility] [address] [address] Jun, [facility] [address] [address] Jun, [facility] [address] [address] May, [facility] [address] [address] May, Back pain M54.9 [facility] [address] [address] May, [facility] [address] [address] May, 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 ; Chronic hepatitis C without hepatic coma B18.2 and HTN (hypertension) I10 [facility] [address] [address] Apr, Back pain M54.9 [facility] [address] [address] Apr, [facility] [address] [address] Apr, Polyneuropathy in diseases classified el sewhere G63 [facility] [address] [address] Mar, Back pain M54.9 [facility] [address] [address] Mar, [facility] [address] [address] Mar, Back pain M54.9 [facility] [address] [address] Mar, [facility] [address] [address] Mar, [facility] [address] [address] Mar, Polyneuropathy in diseases classified el sewhere G63 [facility] [address] [address] Feb, Back pain M54.9 [facility] [address] [address] Jan, Back pain M54.9 [facility] [address] [address] Jan, [facility] [address] [address] Jan, [place] [address] [address] Dec, Back pain M54.9 [facility] [address] [address] Dec, [facility] [address] [address] Dec, Upper respiratory tract infection, unspe cified type J06.9 [facility] [address] [address] Dec, [facility] [address] [facility] [id number] [address] [place] [address] Dec, Acute suppurative otitis med ia of right ear without spontaneous rupture of tympanic membrane, recurrence not specified H66.001 and Acute nasopharyngitis J00 [facility] [address] [address] Dec, Back pain M54.9 [facility] [address] [address] Dec, Foot infection L08.9 and Type 2 diabetes mellitus with other diabetic neurological complication E11.49 [facility] [address] [address] Nov, Cellulitis of toe of right foot L03.031 ; Polyneuropathy in diseases classified elsewhere G63 and HTN (hypertension) I10 [facility] [address] [id number] [place] [address] Nov, [facility] [address] [id number] [place] [address] Nov, [facility] [address] [id number] [place] [address] Nov, Back pain M54.9 [facility] [address] [id number] [place] [address] Nov, Shortness of breath R06.02 [facility] [address] [id number] [place] [address] Nov, [facility] [address] [id number] [place] [address] Oct, [facility] [address] [id number] [place] [address] Oct, [facility] [address] [id number] [place] [address] Oct, [facility] [address] [id number] [place] [address] Oct, [facility] [address] [id number] [place] [address] Oct, [facility] [address] [id number] [place] [address] Oct, Back pain M54.9 [facility] [address] [id number] [place] [address] Oct, Back pain M54.9 [facility] [address] [id number] [place] [address] Oct, [facility] [address] [id number] [place] [address] September, [facility] [address] [id number] [place] [address] September, [facility] [address] [id number] [place] [address] September, [facility] [address] [address] September, 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 and Hypotension, unspecified hypotension type I95.9 [facility] [address] [address] September, [facility] [address] [address] September, [facility] [address] [address] September, Back pain M54.9 [place] [address] [address] Aug, [place] [address] [address] Aug, Acute cystitis with hematuria N30.01 ; U lcer of right foot, unspecified ulcer stage L97.519 ; HTN (hypertension) I10 ; COPD (chronic obstructive pulmonary disease) J44.9 and DM neuro manif type II E11.49 [place] [address] [address] [address] Aug, Back pain M54.9 [place] [address] [address] Jul, [place] [address] [address] Jul, Back pain M54.9 [facility] [address] [address] Jul, [place] [address] [address] Jul, DM neuro manif type II E11.49 and Ulcer of right foot, unspecified ulcer stage L97.519 [facility] [address] [address] Jun, [facility] [address] [address] 15 Jun, 2017 [facility] [address] [address] May, 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 ; GERD (gastroesophageal reflux disease) K21.9 and PAD (peripheral artery disease) I73.9 [facility] [address] [address] May, Decubital ulcer L89.90 ; Diabetes E11.9 and GERD (gastroesophageal reflux disease) K21.9 [facility] [address] [address] May, [facility] [address] [address] Apr, [facility] [address] [address] Mar, [facility] [address] [address] Mar, [facility] [address] [address] Feb, [facility] [address] [address] Feb, [facility] [address] [address] Jan, [facility] [address] [address] Jan, HTN (hypertension) I10 [facility] [address] [address] Jan, [facility] [address] [address] Dec, Back pain M54.9 [facility] [address] [place] [id number] [place] [address] Dec, Back pain M54.9 [facility] [address] [facility] [id number] [place] [address] Dec, Encounter for immunization Z 23 and Puncture wound of right foot, initial encounter S91.331A [facility] [address] [address] Dec, [facility] [address] [address] Nov, [place] [address] [address] Nov, COPD (chronic obstructive pulmonary dise ase) J44.9 [place] [address] [address] Nov, [place] [address] [address] Oct, [place] [address] [address] Oct, [place] [address] [address] September, Onychomycosis B35.1 and DM neuro manif t ype II E11.49 [place] [address] [address] September, [place] [address] [address] Aug, [place] [address] [address] Jul, Sinusitis, unspecified chronicity, unspe cified location J32.9 and Cough R05 [place] [address] [address] Jul, Back pain M54.9 [place] [address] [address] 14 Jun, 2016 Back pain M54.9 [facility] [address] [address] 06 Jun, 2016 COPD (chronic obstructive pulmonary dise ase) J44.9 [facility] [address] [address] May, [facility] [address] [address] May, [facility] [address] [address] May, Back pain M54.9 [facility] [address] [address] 16 May, 2016 [facility] [address] [address] May, [facility] [address] [address] May, Diabetes E11.9 [facility] [address] [address] May, Diabetes E11.9 ; GERD (gastroesophageal reflux [...] C screening test Z11.59 [facility] [address] [address] May, HTN (hypertension) I10 [facility] [address] [address] Apr, [facility] [address] [address] Apr, [facility] [address] [address] Apr, [facility] [address] [address] Apr, [facility] [address] [address] 07 Apr, 2016 [facility] [address] [address] Mar, [facility] [address] [address] Mar, [facility] [address] [address] Mar, [facility] [address] [address] Mar, [facility] [address] [address] Mar, Dental examination Z01.20 [place] [address] [address] Feb, [place] [address] [address] Feb, [place] [address] [address] Feb, Back pain M54.9 [place] [address] [address] Jan, [place] [address] [address] Jan, [place] [address] [address] Dec, Diabetes E11.9 ; GERD (gastroesophageal reflux disease) K21.9 ; ED (erectile dysfunction) N52.9 ; HTN (hypertension) I10 ; Insomnia G47.00 ; COPD (chronic obstructive pulmonary disease) J44.9 ; Neuropathy G62.9 and Bipolar depression F31.30 [place] [address] [address] Dec, 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 and Onychomycosis B35.1 [facility] [address] [address] Dec, [facility] [address] [id number] [place] [address] Dec, [facility] [address] [place] [id number] [place] [address] Dec, [facility] [address] [id number] [place] [address] Dec, [facility] [address] [place] [id number] [place] [address] Nov, [facility] [address] [id number] [place] [address] Nov, [facility] [address] [place] [id number] [place] [address] Oct, [facility] [address] [place] [id number] [place] [address] Oct, [facility] [address] [place] [id number] [place] [address] Oct, Back pain M54.9 [facility] [address] [place] [id number] [place] [address] Oct, [facility] [address] [place] [id number] [place] [address] Oct, [facility] [address] [place] [id number] [place] [address] Oct, [facility] [address] [place] [id number] [place] [address] Oct, HTN (hypertension) I10 [facility] [address] [place] [id number] [place] [address] Oct, Back pain M54.9 [facility] [address] [place] [id number] [place] [address] Oct, Chronic pain syndrome G89.4 [facility] [address] [place] [id number] [place] [address] September, Back pain M54.9 [facility] [address] [address] September, HTN (hypertension) I10 [facility] [address] [address] Aug, Porokeratosis Q82.8 ; Onychomycosis B35. 1 and Type 2 diabetes mellitus with other diabetic neurological complication E11.49 [facility] [address] [address] Aug, GERD (gastroesophageal reflux disease) K 21.9 ; Diabetes E11.9 ; HTN (hypertension) I10 ; Insomnia G47.00 ; Restless legs syndrome G25.81 ; COPD (chronic obstructive pulmonary disease) J44.9 ; Back pain M54.9 and Bipolar 1 disorder F31.9 [facility] [address] [address] Aug, [facility] [address] [address] Aug, [facility] [address] [address] Aug, [facility] [address] [address] Aug, [facility] [address] [address] Jul, [facility] [address] [address] Jul, [facility] [address] [address] 30 Jul, 2015 [facility] [address] [address] Jul, [facility] [address] [address] 15 Jul, 2015 [facility] [address] [address] Jul, [facility] [address] [address] Jun, Decubital ulcer L89.90 ; Diabetes E11.9 ; Back pain M54.9 ; HTN (hypertension) I10 and COPD (chronic obstructive pulmonary disease) J44.9 [place] [address] [address] Jun, [facility] [address] [address] Jun, [facility] [address] [address] Jun, [place] [address] [address] Jun, [place] [address] [address] Jun, Diabetes E11.9 ; Insomnia G47.00 ; Decub ital ulcer L89.90 ; GERD (gastroesophageal reflux disease) K21.9 ; Back pain M54.9 ; Superficial fungus infection of skin B36.9 and HTN (hypertension) I10 [address] [id number] Jun, Dental examination Z01.[address] [address] May, [place] [address] [address] May, [address] [address] May, [place] [address] [address] May, Diabetes E11.9 ; HTN (hypertension) I10 and Decubital ulcer L89.[address] [address] May, HTN (hypertension) I10 ; Decubital ulcer L89.90 and Diabetes E11.9 [place] [address] [address] Apr, Diabetes E11.9 ; GERD (gastroesophageal reflux disease) K21.9 ; Back pain M54.9 ; HTN (hypertension) I10 ; Restless legs syndrome G25.81 and Decubital ulcer L89.90 [facility] [address] [address] Apr, [facility] [address] [address] Apr, Diabetes E11.9 ; HTN (hypertension) I10 ; Restless legs syndrome G25.81 ; GERD (gastroesophageal reflux disease) K21.9 and COPD (chronic obstructive pulmonary disease) J44.9 [place] [address] [address] Mar, [place] [address] [address] Mar, [place] [address] [address] Mar, Diabetes E11.9 ; Abscess L02.91 and Rest less legs syndrome G25.81 [place] [address] [address] Mar, [place] [address] [address] Feb, GERD (gastroesophageal reflux disease) K 21.9 ; Back pain M54.9 ; ED (erectile dysfunction) N52.9 ; Diabetes E11.9 ; HTN (hypertension) I10 and Insomnia G47.00 [place] [address] [address] Feb, [place] [address] [address] Feb, [place] [address] [address] Jan, [place] [address] [address] Jan, Diabetes 250.00 ; Nondependent cannabis abuse, continuous 305.21 ; Cough 786.2 ; Schizoaffective disorder, unspecified 295.70 ; Sciatica 724.3 ; Other, mixed, or unspecified nondependent drug abuse, unspecified 305.90 ; Chronic pain 338.29 ; GERD (gastroesophageal reflux disease) 530.81 and HTN (hypertension) 401.9 [facility] [address] [address] Jan, [facility] [address] [address] Jan, [facility] [address] [address] Jan, Chronic pain associated with significant psychosocial dysfunction 338.4 ; Diabetes mellitus without mention of complication, type I [juvenile type], uncontrolled 250.03 ; Benign essential hypertension 401.1 ; Schizoaffective disorder, unspecified 295.70 ; Wheezing 786.07 ; Ear ache 388.70 ; Cough 786.2 ; Sciatica 724.3 and Foot pain, bilateral 729.5 [place] [address] [address] Dec, [place] [address] [address] Dec, [facility] [address] [address] Dec, [place] [address] [address] Dec, [facility] [address] [address] Dec, [facility] [address] [address] Nov, Elevated liver enzymes 790.5 [facility] [address] [address] Nov, [facility] [address] [address] Nov, [facility] [address] [place] [id number] [place] [address] 14 Nov, 2014 [facility] [address] [address] Nov, Benign essential hypertension 401.1 ; Di abetes mellitus without mention of complication, type I [juvenile type], uncontrolled 250.03 and Nondependent cannabis abuse, continuous 305.21 [facility] [address] [address] Oct, Cellulitis 682.9 and Benign essential hy pertension 401.1 [facility] [address] [address] Oct, [facility] [address] [address] September, [facility] [address] [address] September, [facility] [address] [address] Aug, [facility] [address] [address] Aug, [facility] [address] [address] Aug, [facility] [address] [address] Aug, [facility] [address] [address] Jul, [facility] [address] [place] [id number] [place] [address] Jul, [facility] [address] [address] Jul, [facility] [address] [address] Jul, [facility] [address] [address] Jul, [facility] [address] [id number] [place] [address] Jul, [facility] [address] [id number] [place] [address] Jun, [facility] [address] [id number] [place] [address] Jun, [facility] [address] [id number] [place] [address] Jun, [facility] [address] [id number] [place] [address] Jun, [facility] [address] [id number] [place] [address] Jun, [facility] [address] [id number] [place] [address] May, [facility] [address] [id number] [place] [address] May, [facility] [address] [id number] [place] [address] May, [facility] [address] [id number] [place] [address] May, [facility] [address] [id number] [place] [address] May, [facility] [address] [id number] [place] [address] May, [facility] [address] [id number] [place] [address] May, [facility] [address] [id number] [place] [address] May, [facility] [address] [id number] [place] [address] Apr, [facility] [address] [id number] [place] [address] Apr, [facility] [address] [id number] [place] [address] Apr, [facility] [address] [id number] [place] [address] Apr, [facility] [address] [id number] [place] [address] Mar, [facility] [address] [id number] [place] [address] Mar, [facility] [address] [id number] [place] [address] Mar, [facility] [address] [id number] [place] [address] Mar, [facility] [address] [id number] [place] [address] Feb, [facility] [address] [id number] [place] [address] Feb, [facility] [address] [id number] [place] [address] Feb, [facility] [address] [id number] [place] [address] Feb, [facility] [address] [id number] [place] [address] Feb, [facility] [address] [id number] [place] [address] Feb, [facility] [address] [id number] [place] [address] Jan, [facility] [address] [id number] [place] [address] Jan, 2013 [facility] [address] [id number] [place] [address] Jan, [facility] [address] [id number] [place] [address] Jan, [facility] [address] [id number] [place] [address] Dec, [facility] [address] [id number] [place] [address] Dec, [facility] [address] [id number] [place] [address] Dec, [facility] [address] [facility] [id number] [place] [address] Dec, [facility] [address] [id number] [place] [address] Dec, [facility] [address] [facility] [id number] [place] [address] Dec, [facility] [address] [facility] [id number] [place] [address] Oct, [facility] [address] [id number] [place] [address] Oct, [facility] [address] [id number] [place] [address] September, [facility] [address] [id number] [place] [address] September, [facility] [address] [facility] [id number] [place] [address] September, [facility] [address] [id number] [place] [address] September, [facility] [address] [id number] [place] [address] September, [facility] [address] [id number] [place] [address] September, [facility] [address] [facility] [id number] [place] [address] Aug, [facility] [address] [id number] [place] [address] Aug, [facility] [address] [id number] [place] [address] Aug, [facility] [address] [id number] [place] [address] Aug, [facility] [address] [id number] [place] [address] Jul, [facility] [address] [id number] [place] [address] Jul, [facility] [address] [id number] [place] [address] Jun, [facility] [address] [id number] [place] [address] Jun, [facility] [address] [id number] [place] [address] May, [facility] [address] [id number] [place] [address] May, [facility] [address] [id number] [place] [address] Jan, [facility] [address] [id number] [place] [address] Dec, [facility] [address] [id number] [place] [address] Jun, [facility] [address] [id number] [place] [address] May, [facility] [address] [id number] [place] [address] Nov, [facility] [address] [id number] [place] [address] September, [facility] [address] [id number] [place] [address] Aug, [facility] [address] [id number] [place] [address] Aug, [facility] [address] [id number] [place] [address] Aug, [facility] [address] [id number] [place] [address] Aug, [facility] [address] [id number] [place] [address] 14 Nov, 2010 [facility] [address] [id number] [place] [address] Oct, [facility] [address] [id number] [place] [address] Jul, [facility] [address] [id number] [place] [address] Feb, [facility] [id number] [place] [address] Feb, [facility] [address] [id number] [place] [address] Apr, [facility] [address] [id number] [place] [address] Apr, [facility] [address] [id number] [place] [address] Feb, [facility] [address] [id number] [place] [address] Feb, [facility] [address] [id number] [place] [address] Jul, IMMUNIZATIONS No Known Immunizations SOCIAL HISTORY [...]
--- OUTSIDE RECORDS SUMMARY | 2019-09-09 08:36 | XMS REPORT ---
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 Name Role Phone MICHAEL CEDILLOMELIZA Unavailable PROBLEMS Type Condition ICD9-CM Code IIF17-HS Code Onset Dates Condition S tatus SNOMED Code Problem Restless legs syndrome G25.81 Active 585909064 Problem GERD (gastroesophageal reflux disease) K21.9 Active 671779434 Problem Sinusitis, unspecified chronicity, unspecified location J32.9 Active 09029094 Problem COPD (chronic obstructive pulmonary disease) J44.9 Active 20988003 Problem Ulcer of right foot, unspecified ulcer stage L97.5 19 Active 35083724 Problem DM neuro manif type II E11.49 Active 02449321 Problem Constipation, unspecified constipation type K59.00 Active 20141318 Problem Schizoaffective disorder, depressive type F25.1 Active 43668764 Problem PAD (peripheral artery disease) I73.9 Active 699259014 Problem Chronic hepatitis C without hepatic coma B18.2 Active 710914845 Problem Polyneuropathy G62.9 Active 01750 000 Problem Alcohol use disorder, severe, dependence F10.20 Active 80162325 Problem Methamphetamine use disorder, severe, 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 Active 804977184 Problem Morbid (severe) obesity due to excess calories E66 .01 Active 654707253 Problem Neuropathy G62.9 Active 722537971 Problem ED (erectile dysfunction) N52.9 Acti ve 434113403 Problem 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 Active 622862368 Problem Substance abuse F19.10 Active 6621 4007 Problem Personality disorder F60.9 Active 15288424 Problem HTN (hypertension) I10 Active 3 5688233 Problem Cannabis use disorder, severe, dependence F12.20 Active 59537542 Problem Ulcer of toe of right foot, unspecified ulcer stage L97.519 Active 940241726 Problem Amputated toe of right foot S98.131A Ac tive 327232141 Problem Hammer toe, unspecified laterality M20.40 Active 075943313 ALLERGIES No Information ENCOUNTERS Encounter Location Date Diagnosis [place] [address] [address] 13 Jun, 2019 [place] [address] [address] May, [place] [address] [address] May, [place] [address] [address] May, Polyneuropathy G62.9 ; HTN (hypertension ) I10 ; Schizoaffective disorder, depressive type F25.1 ; PAD (peripheral artery disease) I73.9 ; COPD (chronic obstructive pulmonary disease) J44.9 ; Amputated toe of right foot S98.131A ; Methamphetamine use disorder, severe, 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 and Type 2 diabetes mellitus with other diabetic neurological complication E11.49 [place] [address] [address] May, [place] [address] [address] May, [place] [address] [address] May, [place] [address] [address] May, [place] [address] [address] May, [place] [address] [address] May, Chronic hepatitis C without hepatic coma B18.2 and HTN (hypertension) I10 [place] [address] [address] May, Neuropathy G62.9 [place] [address] [address] Apr, [facility] [address] [place] [address] [place] [address] Apr, [facility] [address] [place] [id number] [place] [address] Apr, [facility] [address] [address] Apr, [facility] [address] [address] Apr, [facility] [address] [address] Apr, [facility] [address] [address] Apr, [facility] [address] [address] Apr, Ulcer of right foot, unspecified ulcer s tage L97.519 ; Type 2 diabetes mellitus with other diabetic neurological complication E11.49 ; Onychomycosis B35.1 and Hammer toe, unspecified laterality M20.40 [place] [address] [address] Apr, [facility] [address] [address] Apr, HTN (hypertension) I10 and Ulcer of toe of right foot, unspecified ulcer stage L97.519 [facility] [address] [address] Apr, [facility] [address] [address] Apr, Schizoaffective disorder, depressive typ e F25.1 ; Other custodial (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.899 and Stimulant use disorder F15.90 [facility] [address] [address] Apr, [facility] [address] [address] Apr, [facility] [address] [address] Apr, [facility] [address] [address] Mar, Pre-ulcerative calluses L84 [facility] [address] [address] Mar, HTN (hypertension) I10 ; DM neuro manif type II E11.49 ; Morbid (severe) obesity due to excess calories E66.01 and Polyneuropathy G62.9 [place] [address] [address] Mar, [facility] [address] [address] Mar, [place] [address] [address] Mar, Onychomycosis B35.1 ; Callus of foot L84 and Hammer toe, unspecified laterality M20.40 [facility] [address] [address] Mar, Neuropathy G62.9 [facility] [address] [address] Mar, [facility] [address] [address] Mar, [facility] [address] [address] Mar, [facility] [address] [facility] [id number] [address] [place] [address] Mar, Constipation, unspecified co nstipation type K59.00 [facility] [address] [address] Mar, [facility] [address] [address] Mar, [facility] [address] [address] Mar, Chronic hepatitis C without hepatic coma B18.2 ; High risk medication use Z79.899 and Encounter for immunization Z23 [place] [address] [address] Mar, [facility] [address] [address] Mar, Neuropathy G62.9 [facility] [address] [facility] [id number] [place] [address] Mar, High risk sexual behavior, u nspecified type Z72.51 [place] [address] [address] Feb, Callus of foot L84 [place] [address] [address] Feb, Callus of foot L84 [place] [address] [address] Feb, [place] [address] [address] Feb, [facility] [place] [address] [place] [address] Feb, Methamphetamine use disorder, severe, 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 ; Alcohol use disorder, severe, dependence F10.20 and Cannabis use disorder, severe, dependence F12.20 [place] [address] [address] Feb, Chronic hepatitis C without hepatic coma B18.2 [facility] [place] [address] [place] [address] Feb, Methamphetamine use disorder, severe, 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 ; Alcohol use disorder, severe, dependence F10.20 and Cannabis use disorder, severe, dependence F12.20 [place] [address] [address] Feb, [place] [address] [address] Feb, Chronic hepatitis C without hepatic coma B18.2 [facility] [place] [address] [place] [address] Feb, Methamphetamine use disorder, severe, 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 ; Alcohol use disorder, severe, dependence F10.20 and Cannabis use disorder, severe, dependence F12.20 [place] [address] [place] [address] Feb, [place] [address] Feb, [place] [address] Feb, [place] [address] Feb, [place] [address] Feb, Neuropathy G62.9 [place] [address] Feb, Schizoaffective disorder, depressive typ e F25.1 ; 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.899 and Stimulant use disorder F15.90 [place] [address] Feb, Onychomycosis B35.1 and Neuropathy G62.[address] [address] Feb, [place] [address] [address] Feb, [place] [address] [address] Feb, [facility] [place] [address] [place] [address] Feb, Methamphetamine use disorder, severe, 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 ; Alcohol use disorder, severe, dependence F10.20 and Cannabis use disorder, severe, dependence F12.20 [place] [address] [place] [address] Feb, Chronic hepatitis C without hepatic coma B18.2 and Encounter for immunization Z23 [facility] [address] [address] 30 Jan, 2019 [facility] [address] [address] Jan, [facility] [address] [address] Jan, [facility] [place] [address] [place] [address] Jan, Methamphetamine use disorder, severe, 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 ; Alcohol use disorder, severe, dependence F10.20 and Cannabis use disorder, severe, dependence F12.20 [facility] [address] [address] Jan, [facility] [address] [address] Jan, [facility] [address] [address] Jan, History of amputation Z89.9 [facility] [address] [facility] [id number] [address] [place] [address] Jan, [facility] [address] [address] Jan, [facility] [address] [address] Jan, [facility] [address] [address] Jan, [facility] [address] [address] Jan, [facility] [address] [address] Jan, [facility] [address] [address] Jan, [facility] [place] [address] [place] [address] Jan, Methamphetamine use disorder, severe, 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 ; Alcohol use disorder, severe, dependence F10.20 and Cannabis use disorder, severe, dependence F12.20 [place] [address] [place] [address] 18 Jan, 2019 [place] [address] [place] [address] 18 Jan, 2019 [place] [address] [place] [address] 16 Jan, 2019 [place] [address] [place] [address] 13 Jan, 2019 [facility] [place] [address] [place] [address] Jan, Methamphetamine use disorder, severe, 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 ; Alcohol use disorder, severe, dependence F10.20 and Cannabis use disorder, severe, dependence F12.20 [facility] [place] [address] [place], [place] [address] Jan, Methamphetamine use disorder, severe, 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 ; Cannabis use disorder, severe, dependence F12.20 and Alcohol use disorder, severe, dependence F10.20 [place] [address] [place] [address] Jan, Chronic hepatitis C without hepatic coma B18.2 [place] 1279[address] Jan, Neuropathy G62.9 [place] 127922[address] Jan, [place] [address] [place] [address] Jan, [place] [address] Jan, Chronic hepatitis C without hepatic coma B18.2 [place] [address] Dec, Right foot pain M79.671 [place] [address] [place] [address] Dec, Schizoaffective disorder, depressive typ e F25.1 ; 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.899 and Stimulant use disorder F15.90 [place] [address] [address] Dec, [facility] [place] [address] [place] [address] Dec, Methamphetamine use disorder, severe, 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 ; Alcohol use disorder, severe, dependence F10.20 and Cannabis use disorder, severe, dependence F12.[address] [address] Dec, [address] [address] Dec, [facility] [address] [address] Dec, Ulcer of toe of right foot, unspecified ulcer stage L97.[address] [address] Dec, [facility] [place] [address] [place] [address] Dec, Methamphetamine use disorder, severe, 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 ; Cannabis use disorder, severe, dependence F12.20 and Alcohol use disorder, severe, dependence F10.[address] [address] Dec, [facility] [address] [place] [address] Dec, Allergic contact dermatitis, unspecified trigger L23.9 and Ankle swelling, unspecified laterality M25.[address] [address] Dec, [address] [address] Dec, [address] [address] Dec, Methamphetamine use disorder, severe, 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 ; Alcohol use disorder, severe, dependence F10.20 and Cannabis use disorder, severe, dependence F12.20 [place] [address] [address] Dec, [place] [address] [address] Dec, [place] [address] [address] Dec, Diarrhea of presumed infectious origin R 19.7 ; Chronic hepatitis C without hepatic coma B18.2 and Nail fungus B35.1 [place] [address] [address] Dec, Neuropathy G62.9 [place] [address] [address] Dec, [place] [address] [address] Nov, Schizoaffective disorder, depressive typ e F25.1 ; Other custodial (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.899 and Stimulant use disorder F15.90 [place] [address] [address] Nov, [place] [address] [place] [address] Nov, Substance abuse F19.10 [place] [address] [address] Nov, [place] [address] [address] Nov, Chronic hepatitis C without hepatic coma B18.2 [place] [address] [address] Nov, [place] [address] [address] Nov, Fatigue, unspecified type R53.83 [place] [address] [address] Nov, Schizoaffective disorder, depressive typ e F25.1 ; 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.899 and Stimulant use disorder F15.90 [place] [address] [address] Nov, [facility] [address] [address] Nov, [place] [address] [address] Nov, [place] [address] [address] Oct, Neuropathy G62.9 [place] [address] [address] Oct, Prediabetes R73.03 ; Other custodial (cu rrent) drug therapy Z79.899 and Chronic hepatitis C without hepatic coma B18.2 [place] [address] [address] Oct, Schizoaffective disorder, depressive typ e F25.1 and 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.899 [place] [address] [address] Oct, [facility] [address] [place] [id number] [address] [place] [address] 14 Oct, 2018 Sore throat J02.9 and Acute non-recurrent frontal sinusitis J01.10 [place] [address] [address] Oct, [facility] [address] [place] [address] 07 Oct, 2018 Acute URI J06.9 [place] [address] [address] Oct, [place] [address] [address] Oct, Schizoaffective disorder, depressive typ e F25.1 [facility] [address] [place] [id number] [place] [address] Oct, [facility] [address] [place] [id number] [place] [address] Oct, Substance abuse F19.10 [facility] [address] [facility] [id number] [address] [place] [address] Oct, Bronchitis J40 [facility] [address] [facility] [address] [place] [address] September, Back pain M54.9 [facility] [address] [place] [id number] [place] [address] September, Schizoaffective disorder, depressive typ e F25.1 [facility] [address] [place] [id number] [place] [address] September, [facility] [address] [facility] [address] [place] [address] September, Substance abuse F19.10 [facility] [address] [place] [id number] [place] [address] September, [facility] [address] [place] [id number] [place] [address] September, Schizoaffective disorder, depressive typ e F25.1 [facility] [address] [place] [id number] [place] [address] September, Substance abuse F19.10 [facility] [address] [facility] [place] [address] September, [facility] [address] [address] September, Substance abuse F19.10 [facility] [address] [facility] [place] [address] September, Encounter for Medicare annual wellness e xam Z00.00 ; Ulcer of right foot, unspecified ulcer stage L97.519 ; Type 2 diabetes mellitus with other diabetic neurological complication E11.49 ; COPD (chronic obstructive pulmonary disease) J44.9 ; PAD (peripheral artery disease) I73.9 ; Schizoaffective disorder, depressive type F25.1 and Routine adult health maintenance Z00.00 [facility] [address] [address] September, Schizoaffective disorder, depressive typ e F25.1 [place] [address] [address] September, [place] [address] [address] September, [place] [address] [address] September, Schizoaffective disorder, depressive typ e F25.1 [place] [address] [address] Aug, [facility] [address] [facility] [id number] [address] [address] Aug, Rib pain on left side R07.81 and Closed fracture of multiple ribs of left side with routine healing, subsequent encounter S22.42XD [place] [address] [address] Aug, [place] [address] [address] Aug, [place] [address] [address] Jul, [place] [address] [address] Jul, [place] [address] [address] Jul, [place] [address] [address] Jul, Back pain M54.9 [place] [address] [address] Jul, Polyneuropathy in diseases classified el sewhere G63 [facility] [address] [facility] [id number] [address] [place] [address] Jul, Constipation, unspecified co nstipation type K59.00 and Burn T30.0 [facility] [address] [address] Jul, [facility] [address] [address] Jun, 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 [place] [address] [address] Jun, Back pain M54.9 [facility] [address] [address] Jun, 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 [facility] [address] [address] Jun, [facility] [address] [address] Jun, [facility] [address] [address] Jun, [facility] [address] [address] May, [facility] [address] [address] May, Back pain M54.9 [facility] [address] [address] May, [place] [address] [address] May, 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 ; Chronic hepatitis C without hepatic coma B18.2 and HTN (hypertension) I10 [place] [address] [address] Apr, Back pain M54.9 [facility] [address] [place] [id number] [place] [address] Apr, [facility] [address] [place] [id number] [place] [address] Apr, Polyneuropathy in diseases classified el [facility] G[facility] [address] [place] [id number] [place] [address] Mar, Back pain M54.9 [facility] [address] [place] [id number] [place] [address] Mar, [facility] [address] [place] [id number] [place] [address] Mar, Back pain M54.9 [facility] [address] [place] [id number] [place] [address] Mar, [facility] [address] [place] [id number] [place] [address] Mar, [facility] [address] [place] [id number] [place] [address] Mar, Polyneuropathy in diseases classified el [facility] G63 [facility] [address] [place] [id number] [place] [address] Feb, Back pain M54.9 [facility] [address] [place] [id number] [place] [address] Jan, Back pain M54.9 [facility] [place] [facility] [address] [place] [id number] [place] [address] Jan, [facility] [address] [place] [id number] [place] [address] Jan, [facility] [address] [place] [id number] [place] [address] Dec, Back pain M54.9 [facility] [place] [facility] [address] [place] [id number] [place] [address] Dec, [facility] [place] [facility] [address] [address] Dec, Upper respiratory tract infection, unspe cified type J06.9 [facility] [address] [address] Dec, [facility] [address] [facility] [id number] [address] [place] [address] Dec, Acute suppurative otitis med ia of right ear without spontaneous rupture of tympanic membrane, recurrence not specified H66.001 and Acute nasopharyngitis J00 [place] [address] [address] Dec, Back pain M54.9 [place] [address] [address] Dec, Foot infection L08.9 and Type 2 diabetes mellitus with other diabetic neurological complication E11.49 [place] [address] [address] Nov, Cellulitis of toe of right foot L03.031 ; Polyneuropathy in diseases classified elsewhere G63 and HTN (hypertension) I10 [place] [address] [address] Nov, [place] [address] [address] Nov, [place] [address] [address] Nov, Back pain M54.9 [place] [address] [address] Nov, Shortness of breath R06.02 [place] [address] [address] Nov, [place] [address] [address] Oct, [place] [address] [address] Oct, [facility] [address] [place] [id number] [place] [address] Oct, [facility] [address] [address] Oct, [facility] [address] [place] [id number] [place] [address] Oct, [facility] [address] [address] Oct, Back pain M54.9 [facility] [address] [address] Oct, Back pain M54.9 [facility] [address] [address] Oct, [facility] [address] [address] September, [facility] [address] [address] September, [facility] [address] [address] September, [facility] [address] [address] September, 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 and Hypotension, unspecified hypotension type I95.9 [facility] [facility] [id number] [place] [address] September, [facility] [id number] [place] [address] September, [facility] [address] [address] September, Back pain M54.9 [facility] [id number] [place] [address] Aug, [facility] [address] [address] Aug, Acute cystitis with hematuria N30.01 ; U lcer of right foot, unspecified ulcer stage L97.519 ; HTN (hypertension) I10 ; COPD (chronic obstructive pulmonary disease) J44.9 and DM neuro manif type II E11.49 [place] [address] [address] Aug, Back pain M54.9 [place] [address] [address] Jul, [place] [address] [address] Jul, Back pain M54.9 [place] [address] [address] Jul, [place] [address] [address] Jul, DM neuro manif type II E11.49 and Ulcer of right foot, unspecified ulcer stage L97.519 [place] [address] [address] Jun, [place] [address] [address] Jun, [place] [address] [address] May, 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 ; GERD (gastroesophageal reflux disease) K21.9 and PAD (peripheral artery disease) I73.9 [place] [address] [address] May, Decubital ulcer L89.90 ; Diabetes E11.9 and GERD (gastroesophageal reflux disease) K21.9 [place] [address] [address] May, [place] [address] [address] Apr, [place] [address] [address] Mar, [facility] [id number] [place] [address] Mar, [facility] [address] [address] Feb, [facility] [id number] [place] [address] Feb, [facility] [address] [address] Jan, [facility] [address] [address] Jan, HTN (hypertension) I10 [facility] [address] [address] Jan, [facility] [address] [address] Dec, Back pain M54.9 [facility] [address] [address] Dec, Back pain M54.9 [facility] [address] [facility] [id number] [address] [place] [address] Dec, Encounter for immunization Z 23 and Puncture wound of right foot, initial encounter S91.331A [facility] [address] [address] Dec, [facility] [address] [address] Nov, [facility] [address] [address] Nov, COPD (chronic obstructive pulmonary dise ase) J44.9 [facility] [address] [address] Nov, [facility] [address] [address] Oct, [facility] [address] [address] Oct, [place] [address] [address] September, Onychomycosis B35.1 and DM neuro manif t ype II E11.49 [facility] [address] [address] September, [facility] [address] [address] Aug, [place] [address] [address] Jul, Sinusitis, unspecified chronicity, unspe cified location J32.9 and Cough R05 [place] [address] [address] Jul, Back pain M54.9 [place] [address] [address] 14 Jun, 2016 Back pain M54.9 [place] [address] [address] 06 Jun, 2016 COPD (chronic obstructive pulmonary dise ase) J44.9 [place] [address] [address] May, [place] [address] [address] May, [place] [address] [address] May, Back pain M54.9 [facility] [address] [address] May, [place] [address] [address] May, [facility] [address] [address] May, Diabetes E11.9 [place] [address] [address] May, Diabetes E11.9 ; GERD (gastroesophageal reflux [...] screening test Z11.59 [facility] [address] [address] 04 May, 2016 HTN (hypertension) I10 [facility] [address] [address] 29 Apr, 2016 [facility] [address] [address] Apr, [facility] [address] [address] Apr, [facility] [address] [address] Apr, [facility] [address] [address] Apr, [facility] [address] [address] Mar, [facility] [address] [address] Mar, [facility] [address] [address] Mar, [facility] [address] [address] Mar, [facility] [address] [address] Mar, Dental examination Z01.20 [facility] [address] [address] Feb, [facility] [address] [address] Feb, [facility] [id number] [place] [address] Feb, Back pain M54.9 [facility] [id number] [place] [address] Jan, [facility] [address] [address] Jan, [facility] [address] [address] Dec, Diabetes E11.9 ; GERD (gastroesophageal reflux disease) K21.9 ; ED (erectile dysfunction) N52.9 ; HTN (hypertension) I10 ; Insomnia G47.00 ; COPD (chronic obstructive pulmonary disease) J44.9 ; Neuropathy G62.9 and Bipolar depression F31.30 [facility] [address] [address] Dec, 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 and Onychomycosis B35.1 [facility] [id number] [place] [address] Dec, [facility] [address] [address] Dec, [facility] [id number] [place] [address] Dec, [facility] [address] [address] Dec, [facility] [id number] [place] [address] Nov, [facility] [address] [address] Nov, [facility] [id number] [place] [address] Oct, [facility] [address] [address] Oct, [facility] [address] [address] 07 Oct, 2015 Back pain M54.9 [facility] [address] [address] Oct, [facility] [address] [address] Oct, [facility] [address] [address] Oct, [facility] [address] [address] Oct, HTN (hypertension) I10 [place] [address] [address] Oct, Back pain M54.9 [place] [address] [address] Oct, Chronic pain syndrome G89.4 [place] [address] [address] September, Back pain M54.9 [place] [address] [address] September, HTN (hypertension) I10 [address] [address] [address] Aug, Porokeratosis Q82.8 ; Onychomycosis B35. 1 and Type 2 diabetes mellitus with other diabetic neurological complication E11.49 [place] [address] [address] Aug, GERD (gastroesophageal reflux disease) K 21.9 ; Diabetes E11.9 ; HTN (hypertension) I10 ; Insomnia G47.00 ; Restless legs syndrome G25.81 ; COPD (chronic obstructive pulmonary disease) J44.9 ; Back pain M54.9 and Bipolar 1 disorder F31.9 [place] [address] [address] Aug, [place] [address] [address] Aug, [facility] [id number] [place] [address] Aug, [facility] [id number] [place] [address] Aug, [facility] [id number] [place] [address] Jul, [facility] [id number] [place] [address] Jul, [facility] [id number] [place] [address] Jul, [facility] [id number] [place] [address] 16 Jul, 2015 [facility] [id number] [place] [address] Jul, [facility] [id number] [place] [address] Jul, [facility] [id number] [place] [address] 17 Jun, 2015 Decubital ulcer L89.90 ; Diabetes E11.9 ; Back pain M54.9 ; HTN (hypertension) I10 and COPD (chronic obstructive pulmonary disease) J44.9 [facility] [id number] [place] [address] Jun, [facility] [id number] [place] [address] Jun, [facility] [id number] [place] [address] Jun, [facility] [id number] [place] [address] Jun, [facility] [id number] [place] [address] 03 Jun, 2015 Diabetes E11.9 ; Insomnia G47.00 ; Decub ital ulcer L89.90 ; GERD (gastroesophageal reflux disease) K21.9 ; Back pain M54.9 ; Superficial fungus infection of skin B36.9 and HTN (hypertension) I10 [facility] [address] [facility] [id number] [place] [id number] 02 Jun, 2015 Dental examination Z01.20 [facility] [id number] [place] [address] May, [facility] [address] [address] May, [facility] [address] [address] May, [address] [place] [address] May, Diabetes E11.9 ; HTN (hypertension) I10 and Decubital ulcer L89.90 [address] [place] [address] May, HTN (hypertension) I10 ; Decubital ulcer L89.90 and Diabetes E11.9 [address] [place] [address] Apr, Diabetes E11.9 ; GERD (gastroesophageal reflux disease) K21.9 ; Back pain M54.9 ; HTN (hypertension) I10 ; Restless legs syndrome G25.81 and Decubital ulcer L89.90 [address] [address] Apr, [address] [address] Apr, Diabetes E11.9 ; HTN (hypertension) I10 ; Restless legs syndrome G25.81 ; GERD (gastroesophageal reflux disease) K21.9 and COPD (chronic obstructive pulmonary disease) J44.9 [facility] [address] [address] Mar, [address] [place] [address] Mar, [address] [place] [address] Mar, Diabetes E11.9 ; Abscess L02.91 and Rest less legs syndrome G25.[address] [address] Mar, [address] [place] [address] Feb, GERD (gastroesophageal reflux disease) K 21.9 ; Back pain M54.9 ; ED (erectile dysfunction) N52.9 ; Diabetes E11.9 ; HTN (hypertension) I10 and Insomnia G47.[address] [address] Feb, [address] [address] Feb, [address] [address] Jan, [address] [address] Jan, Diabetes 250.00 ; Nondependent cannabis abuse, continuous 305.21 ; Cough 786.2 ; Schizoaffective disorder, unspecified 295.70 ; Sciatica 724.3 ; Other, mixed, or unspecified nondependent drug abuse, unspecified 305.90 ; Chronic pain 338.29 ; GERD (gastroesophageal reflux disease) 530.81 and HTN (hypertension) 401.[address] [address] Jan, [address] [address] Jan, [address] [address] Jan, Chronic pain associated with significant psychosocial dysfunction 338.4 ; Diabetes mellitus without mention of complication, type I [juvenile type], uncontrolled 250.03 ; Benign essential hypertension 401.1 ; Schizoaffective disorder, unspecified 295.70 ; Wheezing 786.07 ; Ear ache 388.70 ; Cough 786.2 ; Sciatica 724.3 and Foot pain, bilateral 729.5 [facility] [address] [address] Dec, [facility] [address] [address] Dec, [facility] [address] [address] Dec, [facility] [address] [address] Dec, [facility] [address] [address] Dec, [facility] [address] [address] Nov, Elevated liver enzymes 790.5 [facility] [address] [address] Nov, [facility] [address] [address] Nov, [facility] [address] [address] Nov, [facility] [address] [address] Nov, Benign essential hypertension 401.1 ; Di abetes mellitus without mention of complication, type I [juvenile type], uncontrolled 250.03 and Nondependent cannabis abuse, continuous 305.21 [facility] [address] [address] Oct, Cellulitis 682.9 and Benign essential hy pertension 401.1 [facility] [address] [address] Oct, [facility] [address] [address] September, [facility] [address] [address] September, [facility] [address] [id number] [place] [address] Aug, [facility] [address] [id number] [place] [address] Aug, [facility] [address] [id number] [place] [address] 14 Aug, 2014 [facility] [address] [id number] [place] [address] Aug, [facility] [address] [facility] [id number] [place] [address] Jul, [facility] [address] [id number] [place] [address] Jul, [facility] [address] [id number] [place] [address] Jul, [facility] [address] [id number] [place] [address] Jul, [facility] [address] [id number] [place] [address] Jul, [facility] [address] [id number] [place] [address] Jul, [facility] [address] [id number] [place] [address] Jun, [facility] [address] [id number] [place] [address] Jun, [facility] [address] [id number] [place] [address] Jun, [facility] [address] [id number] [place] [address] Jun, [facility] [address] [id number] [place] [address] Jun, [facility] [address] [id number] [place] [address] May, [facility] [address] [id number] [place] [address] May, [facility] [address] [id number] [place] [address] May, [facility] [address] [id number] [place] [address] May, [facility] [address] [id number] [place] [address] May, [facility] [address] [id number] [place] [address] May, [facility] [address] [id number] [place] [address] May, [facility] [address] [id number] [place] [address] May, [facility] [address] [id number] [place] [address] Apr, [facility] [address] [id number] [place] [address] Apr, [facility] [address] [id number] [place] [address] Apr, [facility] [address] [id number] [place] [address] Apr, [facility] [address] [id number] [place] [address] Mar, [facility] [address] [id number] [place] [address] Mar, [facility] [address] [id number] [place] [address] Mar, [facility] [address] [id number] [place] [address] Mar, [facility] [address] [id number] [place] [address] Feb, [facility] [address] [id number] [place] [address] Feb, [facility] [address] [facility] [id number] [place] [address] Feb, [facility] [address] [id number] [place] [address] Feb, [facility] [address] [id number] [place] [address] Feb, [facility] [address] [id number] [place] [address] Feb, [facility] [address] [id number] [place] [address] Jan, [facility] [address] [id number] [place] [address] Jan, [facility] [address] [id number] [place] [address] Jan, [facility] [address] [id number] [place] [address] Jan, [facility] [address] [id number] [place] [address] Dec, [facility] [address] [id number] [place] [address] Dec, [facility] [address] [id number] [place] [address] Dec, [facility] [address] [id number] [place] [address] Dec, [facility] [address] [id number] [place] [address] Dec, [facility] [address] [id number] [place] [address] Dec, [facility] [address] [id number] [place] [address] Oct, [facility] [address] [id number] [place] [address] Oct, [facility] [address] [id number] [place] [address] September, [facility] [address] [facility] [id number] [place] [address] September, [facility] [address] [facility] [id number] [facility] [address] September, [facility] [address] [id number] [place] [address] September, [facility] [address] [id number] [place] [address] September, [facility] [address] [facility] [id number] [place] [address] September, [facility] [address] [id number] [place] [address] Aug, [facility] [address] [id number] [place] [address] Aug, [facility] [address] [id number] [place] [address] Aug, [facility] [address] [id number] [place] [address] Aug, [facility] [address] [id number] [place] [address] Jul, [facility] [address] [id number] [place] [address] Jul, [facility] [address] [id number] [place] [address] Jun, [facility] [address] [facility] [id number] [place] [address] Jun, [facility] [address] [facility] [id number] [place] [address] May, [facility] [address] [id number] [place] [address] May, [facility] [address] [id number] [place] [address] Jan, [facility] [address] [id number] [place] [address] Dec, [facility] [address] [id number] [place] [address] Jun, [facility] [address] [id number] [place] [address] May, [facility] [address] [id number] [place] [address] Nov, [facility] [address] [id number] [place] [address] September, [facility] [address] [id number] [place] [address] Aug, [facility] [address] [id number] [place] [address] Aug, [facility] [address] [id number] [place] [address] Aug, [facility] [id number] [place] [address] Aug, [facility] [address] [id number] [place] [address] Nov, [facility] [address] [id number] [place] [address] Oct, [facility] [address] [id number] [place] [address] Jul, [facility] [address] [id number] [place] [address] Feb, [facility] [address] [id number] [place] [address] Feb, [facility] [id number] [place] [address] Apr, [facility] [address] [id number] [place] [address] Apr, [facility] [address] [id number] [place] [address] Feb, [facility] [address] [facility] [id number] [place] [address] Feb, [facility] [address] [facility] [id number] [place] [address] Jul, IMMUNIZATIONS No Known Immunizations SOCIAL HISTORY Never Assessed REASON FOR VISIT PLAN OF CARE VITAL SIGNS Height 70 in 2013-10-04 Weight 242 lbs 2013-10-04 Temperature 98.4 degrees Fahrenheit 2013-10-04 Heart Rate 86 bpm 2013-10-04 Respiratory Rate 16 2013-10-04 Blood pressure systolic 140 mmHg 2013-10-04 Blood pressure diastolic 92 mmHg 2013-10-04 MEDICATIONS Unknown Medications RESULTS No Results PROCEDURES Procedure Date Ordered Result Body Site VISIT October 04, 2013 INSTRUCTIONS MEDICATIONS ADMINISTERED No Known Medications [...]
--- OUTSIDE RECORDS SUMMARY | 2019-09-09 08:36 | XMS REPORT ---
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 Name Role Phone MICHAEL CEDILLOMELIZA Unavailable PROBLEMS Type Condition ICD9-CM Code DCQ88-NA Code Onset Dates Condition S tatus SNOMED Code Problem Restless legs syndrome G25.81 Active 537956283 Problem GERD (gastroesophageal reflux disease) K21.9 Active 609468604 Problem Sinusitis, unspecified chronicity, unspecified location J32.9 Active 59209511 Problem COPD (chronic obstructive pulmonary disease) J44.9 Active 52657899 Problem Ulcer of right foot, unspecified ulcer stage L97.5 19 Active 06836023 Problem DM neuro manif type II E11.49 Active 20182184 Problem Constipation, unspecified constipation type K59.00 Active 20135421 Problem Schizoaffective disorder, depressive type F25.1 Active 96748229 Problem PAD (peripheral artery disease) I73.9 Active 101790336 Problem Chronic hepatitis C without hepatic coma B18.2 Active 793028000 Problem Polyneuropathy G62.9 Active 44093 000 Problem Alcohol use disorder, severe, dependence F10.20 Active 65224779 Problem Methamphetamine use disorder, severe, 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 Active 811376087 Problem Morbid (severe) obesity due to excess calories E66 .01 Active 920323158 Problem Neuropathy G62.9 Active 081977270 Problem ED (erectile dysfunction) N52.9 Acti ve 362038134 Problem 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 Active 931956932 Problem Substance abuse F19.10 Active 6621 4007 Problem Personality disorder F60.9 Active 01714647 Problem HTN (hypertension) I10 Active 3 9529946 Problem Cannabis use disorder, severe, dependence F12.20 Active 42793638 Problem Ulcer of toe of right foot, unspecified ulcer stage L97.519 Active 915729189 Problem Amputated toe of right foot S98.131A Ac tive 071187886 Problem Hammer toe, unspecified laterality M20.40 Active [id number] ALLERGIES No Information ENCOUNTERS Encounter Location Date Diagnosis [place] [address] [address] 18 Jun, 2019 [facility] [place] [address] [address] Jun, [place] [address] [address] Jun, [place] [address] [address] Jun, Polyneuropathy G62.9 [place] [address] [address] May, [place] [address] [address] May, Foot callus L84 [place] [address] [address] May, [place] [address] [address] May, [place] [address] [address] May, [place] [address] [address] May, Polyneuropathy G62.9 ; HTN (hypertension ) I10 ; Schizoaffective disorder, depressive type F25.1 ; PAD (peripheral artery disease) I73.9 ; COPD (chronic obstructive pulmonary disease) J44.9 ; Amputated toe of right foot S98.131A ; Methamphetamine use disorder, severe, 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 and Type 2 diabetes mellitus with other diabetic neurological complication E11.49 [place] [address] [address] May, [place] [address] [address] May, [facility] [place] [address] [place] [id number] [place] [address] May, [facility] [place] [address] [place] [id number] [place] [address] May, [facility] [place] [address] [place] [id number] [place] [address] May, [facility] [place] [address] [place] [id number] [place] [address] May, Chronic hepatitis C without hepatic coma B18.2 and HTN (hypertension) I10 [facility] [place] [address] [place] [id number] [place] [address] May, Neuropathy G62.9 [facility] [place] [address] [place] [id number] [place] [address] Apr, [address] [place] [address] Apr, [facility] [place] [address] [place] [id number] [place] [address] Apr, [facility] [place] [address] [place] [id number] [place] [address] Apr, [facility] [place] [address] [place] [id number] [place] [address] Apr, [facility] [place] [address] [place] [id number] [place] [address] Apr, [facility] [place] [address] [place] [id number] [place] [address] Apr, [facility] [place] [address] [place] [id number] [place] [address] Apr, Ulcer of right foot, unspecified ulcer s tage L97.519 ; Type 2 diabetes mellitus with other diabetic neurological complication E11.49 ; Onychomycosis B35.1 and Hammer toe, unspecified laterality M20.40 [facility] [place] [address] [place] [id number] [place] [address] Apr, [place] [address] [address] Apr, HTN (hypertension) I10 and Ulcer of toe of right foot, unspecified ulcer stage L97.519 [place] [address] [address] Apr, [place] [address] [address] Apr, Schizoaffective disorder, depressive typ e F25.1 ; 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 and Stimulant use disorder F15.[address] [address] Apr, [place] [address] [address] Apr, [place] [address] [address] Apr, [place] [address] [address] Mar, Pre-ulcerative calluses L84 [address] [address] Mar, HTN (hypertension) I10 ; DM neuro manif type II E11.49 ; Morbid (severe) obesity due to excess calories E66.01 and Polyneuropathy G62.9 [place] [address] [address] Mar, [place] [address] [address] Mar, [address] [address] Mar, Onychomycosis B35.1 ; Callus of foot L84 and Hammer toe, unspecified laterality M20.40 [place] [address] [address] Mar, Neuropathy G62.9 [place] [id number] [place] [address] Mar, [facility] [place] [address] [address] Mar, [facility] [place] [address] [address] Mar, [facility] [address] [facility] [id number] [address] [place] [address] Mar, Constipation, unspecified co nstipation type K59.00 [facility] [address] [address] Mar, [facility] [place] [address] [address] Mar, [place] [address] [address] Mar, Chronic hepatitis C without hepatic coma B18.2 ; High risk medication use Z79.899 and Encounter for immunization Z23 [place] [address] [address] Mar, [place] [address] [address] Mar, Neuropathy G62.[address] 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 ; Alcohol use disorder, severe, dependence F10.20 and Cannabis use disorder, severe, dependence [place]12[place]20 [place] [address] Feb, Chronic hepatitis C without hepatic coma B18.2 [facility] [place] [address] [place] [id number] Feb, Methamphetamine use disorder, severe, 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 ; Alcohol use disorder, severe, dependence F10.20 and Cannabis use disorder, severe, dependence F12.20 [place] [address] [place] [address] Feb, [place] [address] Feb, Chronic hepatitis C without hepatic coma B18.2 [place] [address] Feb, Methamphetamine use disorder, severe, 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 ; Alcohol use disorder, severe, dependence F10.20 and Cannabis use disorder, severe, dependence F12.20 [place] [address] Feb, [place] [address] Feb, [place] [address] Feb, [address] Feb, [place] [address] [place] [address] Feb, Neuropathy G62.9 [place] [address] Feb, Schizoaffective disorder, depressive typ e F25.1 ; 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 and Stimulant use disorder F15.[address] [address] Feb, Onychomycosis B35.1 and Neuropathy G62.9 [place] [address] [place] [address] Feb, [facility] [place] [address] [address] Feb, [place] [address] [address] Feb, [facility] [address] [place] [address] Feb, Methamphetamine use disorder, severe, 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 ; Alcohol use disorder, severe, dependence F10.20 and Cannabis use disorder, severe, dependence F12.20 [place] [address] [address] Feb, Chronic hepatitis C without hepatic coma B18.2 and Encounter for immunization Z23 [place] [address] [address] Jan, [facility] [address] [address] Jan, [place] [address] [address] Jan, [facility] [address] [place] [address] Jan, Methamphetamine use disorder, severe, 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 ; Alcohol use disorder, severe, dependence F10.20 and Cannabis use disorder, severe, dependence F12.20 [facility] [place] [address] [address] Jan, [place] [address] [address] Jan, [place] [address] [address] Jan, History of amputation Z89.9 [facility] [address] [facility] [id number] [address] [place] [address] Jan, [facility] [place] [address] [address] Jan, [facility] [place] [address] [place] [address] Jan, [facility] [place] [address] [address] Jan, [facility] [address] [place] [address] Jan, [facility] [place] [address] [place] [address] Jan, [facility] [place] [address] [address] Jan, [facility] [address] [address] Jan, [facility] [address] [place] [address] Jan, Methamphetamine use disorder, severe, 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 ; Alcohol use disorder, severe, dependence F10.20 and Cannabis use disorder, severe, dependence F12.20 [facility] [address] [address] Jan, [facility] [address] [place] [address] 16 Jan, 2019 [facility] [address] [address] Jan, [facility] [address] [place] [address] 11 Jan, 2019 Methamphetamine use disorder, severe, 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 ; Alcohol use disorder, severe, dependence F10.20 and Cannabis use disorder, severe, dependence F12.20 [facility] [address] [place] [address] 06 Jan, 2019 Methamphetamine use disorder, severe, 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 ; Cannabis use disorder, severe, dependence F12.20 and Alcohol use disorder, severe, dependence F10.20 [facility] [address] [address] Jan, Chronic hepatitis C without hepatic coma B18.2 [facility] [address] [address] Jan, Neuropathy G62.9 [facility] [place] [address] [address] Jan, [facility] [address] [address] Jan, [facility] [address] [address] Jan, Chronic hepatitis C without hepatic coma B18.2 [place] [address] [address] Dec, Right foot pain M79.671 [place] [address] [address] Dec, Schizoaffective disorder, depressive typ e F25.1 ; Other mcc (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.899 and Stimulant use disorder F15.90 [place] [address] [address] Dec, [facility] [address] [place] [address] Dec, Methamphetamine use disorder, severe, 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 ; Alcohol use disorder, severe, dependence F10.20 and Cannabis use disorder, severe, dependence F12.20 [place] [address] [address] Dec, [facility] [address] [address] Dec, [facility] [address] [facility] [id number] [address] [place] [address] Dec, Ulcer of toe of right foot, unspecified ulcer stage L97.519 [facility] [address] [address] Dec, [facility] [address] [place] [address] Dec, Methamphetamine use disorder, severe, 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 ; Cannabis use disorder, severe, dependence F12.20 and Alcohol use disorder, severe, dependence F10.20 [place] [address] [place] [id number] Dec, [facility] [address] [facility] [id number] [address] [place] [address] Dec, Allergic contact dermatitis, unspecified trigger L23.9 and Ankle swelling, unspecified laterality M25.473 [place] [address] [address] Dec, [place] [address] [address] Dec, [place] [address] Dec, Methamphetamine use disorder, severe, 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 ; Alcohol use disorder, severe, dependence F10.20 and Cannabis use disorder, severe, dependence F12.20 [place] [address] [address] Dec, [address] [address] Dec, [address] [address] Dec, Diarrhea of presumed infectious origin R 19.7 ; Chronic hepatitis C without hepatic coma B18.2 and Nail fungus B35.[address] [address] Dec, Neuropathy G62.9 [place] [address] [address] Dec, [place] [id number] Nov, Schizoaffective disorder, depressive typ e F25.1 ; 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 and Stimulant use disorder F15.[address] [address] Nov, [facility] [address] [place] [address] Nov, Substance abuse F19.10 [facility] [address] [address] Nov, [facility] [address] [address] Nov, Chronic hepatitis C without hepatic coma B18.2 [facility] [place] [address] [address] Nov, [facility] [address] [address] Nov, Fatigue, unspecified type R53.83 [facility] [address] [address] Nov, Schizoaffective disorder, depressive typ e F25.1 ; Other mcc (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.899 and Stimulant use disorder F15.90 [facility] [address] [address] Nov, [facility] [address] [address] Nov, [facility] [address] [address] Nov, [facility] [address] [address] Oct, Neuropathy G62.9 [facility] [address] [address] Oct, Prediabetes R73.03 ; 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 [address] [facility] [id number] [address] [address] 14 Oct, 2018 Sore throat J02.9 and Acute non-recurrent frontal sinusitis J01.10 [facility] [address] [place] [id number] [place] [address] 11 Oct, [address] [facility] [address] [place] [id number] [place] [address] 07 Oct, 2018 Acute URI J06.9 [facility] [address] [address] Oct, [facility] [address] [address] Oct, Schizoaffective disorder, depressive typ e F25.1 [facility] [address] [address] Oct, [facility] [address] [address] Oct, Substance abuse F19.[address] [facility] [address] [place] [address] Oct, Bronchitis J40 [place] [address] [place] [address] September, Back pain M54.9 [facility] [address] [place] [id number] [place] [address] September, Schizoaffective disorder, depressive typ e F25.1 [facility] [address] [address] September, [address] [place] [address] September, Substance abuse F19.10 [facility] [address] [address] September, [facility] [address] [place] [id number] [place] [address] September, Schizoaffective disorder, depressive typ e F25.1 [facility] [address] [address] September, Substance abuse F19.10 [facility] [address] [place] [id number] [place] [address] September, [facility] [address] [address] September, Substance abuse F19.10 [place] [address] [address] September, Encounter for Medicare annual wellness e xa Z00.00 ; Ulcer of right foot, unspecified ulcer stage L97.519 ; Type 2 diabetes mellitus with other diabetic neurological complication E11.49 ; COPD (chronic obstructive pulmonary disease) J44.9 ; PAD (peripheral artery disease) I73.9 ; Schizoaffective disorder, depressive type F25.1 and Routine adult health maintenance Z00.00 [facility] [address] [place] [id number] [place] [address] September, Schizoaffective disorder, depressive typ e F25.1 [place] [address] [place] [id number] [place] [address] September, [facility] [place] [address] [place] [id number] [place] [address] September, [facility] [place] [address] [address] September, Schizoaffective disorder, depressive typ e F25.1 [facility] [place] [address] [place] [id number] [place] [address] Aug, [facility] [address] [facility] [id number] [address] [place] [address] Aug, Rib pain on left side R07.81 and Closed fracture of multiple ribs of left side with routine healing, subsequent encounter S22.42XD [place] [address] [place] [id number] [place] [address] Aug, [facility] [address] [place] [id number] [place] [address] Aug, [facility] [address] [place] [id number] [place] [address] Jul, [facility] [address] [place] [id number] [place] [address] Jul, [facility] [address] [place] [id number] [place] [address] Jul, [facility] [address] [place] [id number] [place] [address] Jul, Back pain M54.9 [facility] [address] [place] [id number] [place] [address] Jul, Polyneuropathy in diseases classified el sewhere G63 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 [facility] [address] [place] [id number] [place] [address] Jun, Back pain M54.9 [facility] [address] [place] [id number] [place] [address] Jun, 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 [facility] [address] [place] [id number] [place] [address] Jun, [facility] [address] [place] [id number] [place] [address] Jun, [facility] [address] [place] [address] [place] [address] Jun, [facility] [address] [place] [id number] [place] [address] May, [facility] [address] [address] May, Back pain M54.9 [facility] [address] [address] May, [facility] [address] [address] May, 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 ; Chronic hepatitis C without hepatic coma B18.2 and HTN (hypertension) I10 [facility] [place] [address] [address] Apr, Back pain M54.9 [facility] [place] [address] [address] Apr, [facility] [place] [address] [address] Apr, Polyneuropathy in diseases classified el sewhere G63 [facility] [place] [address] [address] Mar, Back pain M54.9 [facility] [place] [address] [address] Mar, [facility] [place] [address] [address] Mar, Back pain M54.9 [facility] [place] [address] [id number] [place] [address] Mar, [facility], [place] [address] [address] Mar, [facility] [place] [address] [address] Mar, Polyneuropathy in diseases classified el sewhere G63 [facility] [place] [address] [address] Feb, Back pain M54.9 [facility] [place] [address] [address] Jan, Back pain M54.9 [facility] [place] [address] [address] Jan, [facility] [place] [address] [address] Jan, [facility] [place] [address] [address] Dec, Back pain M54.9 [facility] [place] [address] [address] Dec, [facility] [place] [address] [address] Dec, Upper respiratory tract infection, unspe cified type J06.9 [place] [address] [address] Dec, [facility] [address] [facility] [id number] [address] [place] [address] Dec, Acute suppurative otitis med ia of right ear without spontaneous rupture of tympanic membrane, recurrence not specified H66.001 and Acute nasopharyngitis J00 [place] [address] [address] Dec, Back pain M54.9 [facility] [place] [address] [address] Dec, Foot infection L08.9 and Type 2 diabetes mellitus with other diabetic neurological complication E11.49 [place] [address] [address] Nov, Cellulitis of toe of right foot L03.031 ; Polyneuropathy in diseases classified elsewhere G63 and HTN (hypertension) I10 [place] [address] [address] Nov, [facility] [address] [id number] [place] [address] Nov, [facility] [id number] [place] [address] Nov, Back pain M54.9 [facility] [id number] [place] [address] Nov, Shortness of breath R06.02 [facility] [id number] [place] [address] Nov, [facility] [id number] [place] [address] Oct, [facility] [id number] [place] [address] Oct, [facility] [id number] [place] [address] Oct, [facility] [id number] [place] [address] Oct, [facility] [id number] [place] [address] Oct, [facility] [id number] [place] [address] Oct, Back pain M54.9 [facility] [id number] [place] [address] Oct, Back pain M54.9 [facility] [id number] [place] [address] Oct, [facility] [id number] [place] [address] September, [facility] [address] [place] [id number] [place] [address] September, [facility] [id number] [place] [address] September, [facility] [address] [place] [id number] [place] [address] September, 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 and Hypotension, unspecified hypotension type I95.9 [facility] [place] [address] [address] September, [facility] [place] [address] [address] September, [place] [address] [address] September, Back pain M54.9 [facility] [place] [address] [address] Aug, [place] [address] [address] Aug, Acute cystitis with hematuria N30.01 ; U lcer of right foot, unspecified ulcer stage L97.519 ; HTN (hypertension) I10 ; COPD (chronic obstructive pulmonary disease) J44.9 and DM neuro manif type II E11.49 [place] [address] [address] Aug, Back pain M54.9 [place] [address] [address] Jul, [place] [address] [address] Jul, Back pain M54.9 [place] [address] [address] Jul, [facility] [place] [address] [address] Jul, DM neuro manif type II E11.49 and Ulcer of right foot, unspecified ulcer stage L97.519 [place] [address] [address] Jun, [place] [address] [address] Jun, [place] [address] [address] May, 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 ; GERD (gastroesophageal reflux disease) K21.9 and PAD (peripheral artery disease) I73.9 [facility] [place] [address] [address] May, Decubital ulcer L89.90 ; Diabetes E11.9 and GERD (gastroesophageal reflux disease) K21.9 [facility] [place] [address] [address] May, [facility] [place] [address] [address] Apr, [place] [address] [address] Mar, [facility] [place] [address] [address] Mar, [facility] [place] [address] [address] Feb, [facility] [place] [address] [address] Feb, [place] [address] [address] Jan, [place] [address] [address] Jan, HTN (hypertension) I10 [facility] [place] [address] [address] Jan, [facility] [place] [address] [address] Dec, Back pain M54.9 [facility] [place] [address] [address] Dec, Back pain M54.[address] [facility] [address] [facility] [id number] [address] [place] [address] Dec, Encounter for immunization Z 23 and Puncture wound of right foot, initial encounter S91.331A [facility] [place] [address] [address] Dec, [facility] [place] [address] [address] Nov, [facility] [place] [address] [address] Nov, COPD (chronic obstructive pulmonary dise ase) J44.9 [facility] [place] [address] [address] Nov, [facility] [place] [address] [address] Oct, [place] [address] [address] Oct, [place] [address] [address] September, Onychomycosis B35.1 and DM neuro manif t ype II E11.49 [place] [address] [address] September, [place] [address] [address] Aug, [place] [address] [address] Jul, Sinusitis, unspecified chronicity, unspe cified location J32.9 and Cough R05 [place] [address] [address] Jul, Back pain M54.9 [facility] [place] [address] [address] 14 Jun, 2016 Back pain M54.9 [facility] [place] [address] [address] 06 Jun, 2016 COPD (chronic obstructive pulmonary dise ase) J44.9 [facility] [place] [address] [address] May, [facility] [place] [address] [place] [id number] [place] [address] May, [facility] [place] [address] [address] May, Back pain M54.9 [facility] [place] [address] [address] 16 May, 2016 [facility] [place] [address] [address] May, [facility] [place] [address] [address] 12 May, 2016 Diabetes E11.9 [facility] [place] [address] [address] 11 May, 2016 Diabetes E11.9 ; GERD [...] Need for hepatitis C screening test Z11.59 [facility] [place] [address] [address] May, HTN (hypertension) I10 [facility] [place] [address] [address] Apr, [facility] [place] [address] [address] Apr, [facility] [place] [address] [address] Apr, [facility] [place] [address] [address] Apr, [facility] [place] [address] [address] Apr, [facility] [place] [address] [address] Mar, [facility] [place] [address] [address] Mar, [facility] [place] [address] [address] Mar, [facility] [place] [address] [address] Mar, [place] [address] [address] Mar, Dental examination Z01.20 [place] [address] [address] Feb, [place] [address] [address] Feb, [place] [address] [address] Feb, Back pain M54.9 [place] [address] [address] Jan, [place] [address] [address] Jan, [place] [address] [address] Dec, Diabetes E11.9 ; GERD (gastroesophageal reflux disease) K21.9 ; ED (erectile dysfunction) N52.9 ; HTN (hypertension) I10 ; Insomnia G47.00 ; COPD (chronic obstructive pulmonary disease) J44.9 ; Neuropathy G62.9 and Bipolar depression F31.30 [facility] [place] [address] [address] Dec, 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 and Onychomycosis B35.1 [facility] [place] [address] [address] Dec, [facility] [place] [address] [address] Dec, [facility] [place] [address] [id number] [place] [address] Dec, [facility] [place] [id number] [place] [address] Dec, [facility] [place] [id number] [place] [address] Nov, [facility] [place] [id number] [place] [address] Nov, [facility] [place] [id number] [place] [address] Oct, [facility] [place] [id number] [place] [address] Oct, [facility] [place] [id number] [place] [address] Oct, Back pain M54.9 [facility] [place] [address] [place] [id number] [place] [address] Oct, [facility] [place] [id number] [place] [address] Oct, [facility] [place] [address] [place] [id number] [place] [address] Oct, [facility] [place] [id number] [place] [address] Oct, HTN (hypertension) I10 [facility] [place] [address] [place] [id number] [place] [address] Oct, Back pain M54.9 [facility] [place] [id number] [place] [address] Oct, Chronic pain syndrome G89.4 [facility] [place] [address] [place] [id number] [place] [address] September, Back pain M54.9 [facility] [place] [id number] [place] [address] September, HTN (hypertension) I10 [facility] [place] [address] [address] Aug, Porokeratosis Q82.8 ; Onychomycosis B35. 1 and Type 2 diabetes mellitus with other diabetic neurological complication E11.49 [facility] [place] [address] [address] Aug, GERD (gastroesophageal reflux disease) K 21.9 ; Diabetes E11.9 ; HTN (hypertension) I10 ; Insomnia G47.00 ; Restless legs syndrome G25.81 ; COPD (chronic obstructive pulmonary disease) J44.9 ; Back pain M54.9 and Bipolar 1 disorder F31.9 [facility] [place] [address] [address] Aug, [place] [address] [address] Aug, [place] [address] [address] Aug, [facility] [place] [address] [address] Aug, [facility] [place] [address] [address] Jul, [facility] [place] [address] [address] Jul, [facility] [place] [address] [address] 30 Jul, 2015 [facility] [place] [address] [address] 16 Jul, 2015 [facility] [place] [address] [address] 15 Jul, 2015 [facility] [place] [address] [address] 03 Jul, 2015 [facility] [place] [address] [address] 17 Jun, 2015 Decubital ulcer L89.90 ; Diabetes E11.9 ; Back pain M54.9 ; HTN (hypertension) I10 and COPD (chronic obstructive pulmonary disease) J44.9 [place] [address] [place] [id number] [place] [address] Jun, [place] [address] [address] Jun, [place] [address] [address] Jun, [place] [address] [address] Jun, [place] [address] [address] Jun, Diabetes E11.9 ; Insomnia G47.00 ; Decub ital ulcer L89.90 ; GERD (gastroesophageal reflux disease) K21.9 ; Back pain M54.9 ; Superficial fungus infection of skin B36.9 and HTN (hypertension) I10 [address] [id number] [id number] Jun, Dental examination Z01.20 [place] [address] [address] May, [place] [address] [address] May, [place] [address] [address] May, [place] [address] [address] May, Diabetes E11.9 ; HTN (hypertension) I10 and Decubital ulcer L89.90 [place] [address] [address] May, HTN (hypertension) I10 ; Decubital ulcer L89.90 and Diabetes E11.9 [place] [address] [address] Apr, Diabetes E11.9 ; GERD (gastroesophageal reflux disease) K21.9 ; Back pain M54.9 ; HTN (hypertension) I10 ; Restless legs syndrome G25.81 and Decubital ulcer L89.90 [place] [address] [address] Apr, [place] [address] [address] Apr, Diabetes E11.9 ; HTN (hypertension) I10 ; Restless legs syndrome G25.81 ; GERD (gastroesophageal reflux disease) K21.9 and COPD (chronic obstructive pulmonary disease) J44.9 [place] [address] [address] Mar, [place] [address] [address] Mar, [place] [address] [address] Mar, Diabetes E11.9 ; Abscess L02.91 and Rest less legs syndrome G25.81 [place] [address] [address] Mar, [place] [address] [address] Feb, GERD (gastroesophageal reflux disease) K 21.9 ; Back pain M54.9 ; ED (erectile dysfunction) N52.9 ; Diabetes E11.9 ; HTN (hypertension) I10 and Insomnia G47.00 [place] [address] [address] Feb, [place] [address] [address] Feb, [place] [address] [address] Jan, [address] [address] Jan, Diabetes 250.00 ; Nondependent cannabis abuse, continuous 305.21 ; Cough 786.2 ; Schizoaffective disorder, unspecified 295.70 ; Sciatica 724.3 ; Other, mixed, or unspecified nondependent drug abuse, unspecified 305.90 ; Chronic pain 338.29 ; GERD (gastroesophageal reflux disease) 530.81 and HTN (hypertension) 401.9 [facility] [place] [address] [address] Jan, [facility] [place] [address] [address] Jan, [facility] [place] [address] [address] Jan, Chronic pain associated with significant psychosocial dysfunction 338.4 ; Diabetes mellitus without mention of complication, type I [juvenile type], uncontrolled 250.03 ; Benign essential hypertension 401.1 ; Schizoaffective disorder, unspecified 295.70 ; Wheezing 786.07 ; Ear ache 388.70 ; Cough 786.2 ; Sciatica 724.3 and Foot pain, bilateral 729.5 [facility] [place] [address] [address] Dec, [facility] [place] [address] [address] Dec, [facility] [place] [address] [address] Dec, [facility] [place] [address] [address] Dec, [facility] [place] [address] [address] Dec, [facility] [place] [address] [address] Nov, Elevated liver enzymes 790.5 [facility] [place] [address] [address] Nov, [facility] [place] [address] [address] Nov, [facility] [place] [address] [address] Nov, [facility] [place] [id number] [place] [address] Nov, Benign essential hypertension 401.1 ; Di abetes mellitus without mention of complication, type I [juvenile type], uncontrolled 250.03 and Nondependent cannabis abuse, continuous 305.21 [facility] [place] [id number] [place] [address] Oct, Cellulitis 682.9 and Benign essential hy pertension 401.1 [facility] [place] [address] [address] Oct, [facility] [place] [address] [address] September, [facility] [place] [address] [address] September, [facility] [place] [address] [address] Aug, [facility] [place] [address] [address] Aug, [facility] [place] [address] [address] Aug, [facility] [place] [address] [address] Aug, [facility] [place] [address] [address] Jul, [facility] [place] [address] [address] Jul, [facility] [place] [address] [address] Jul, [facility] [place] [address] [address] Jul, [facility] [place] [address] [address] Jul, [facility] [place] [address] [address] Jul, [facility] [place] [address] [id number] [place] [address] Jun, [facility] [id number] [place] [address] Jun, [facility] [id number] [place] [address] Jun, [facility] [id number] [place] [address] Jun, [facility] [address] [id number] [place] [address] Jun, [facility] [address] [id number] [place] [address] May, [facility] [address] [id number] [place] [address] May, [facility] [id number] [place] [address] May, [facility] [id number] [place] [address] May, [facility] [id number] [place] [address] May, [facility] [id number] [place] [address] May, [facility] [id number] [place] [address] May, [facility] [id number] [place] [address] May, [facility] [id number] [place] [address] Apr, [facility] [id number] [place] [address] Apr, [facility] [id number] [place] [address] Apr, [facility] [id number] [place] [address] Apr, [facility] [id number] [place] [address] Mar, [facility] [id number] [place] [address] Mar, [facility] [id number] [place] [address] Mar, [facility] [id number] [place] [address] Mar, [facility] [id number] [place] [address] Feb, [facility] [id number] [place] [address] Feb, [facility] [id number] [place] [address] Feb, [facility] [id number] [place] [address] Feb, [facility] [id number] [place] [address] Feb, [facility] [id number] [place] [address] Feb, [facility] [id number] [place] [address] Jan, [facility] [id number] [place] [address] Jan, [facility] [id number] [place] [address] Jan, [facility] [id number] [place] [address] Jan, [facility] [id number] [place] [address] Dec, [facility] [id number] [place] [address] Dec, [facility] [address] [id number] [facility] [place] [address] Dec, [facility] [address] [id number] [place] [address] Dec, [facility] [address] [facility] [id number] [place] [address] Dec, [facility] [id number] [place] [address] Dec, [facility] [address] [facility] [id number] [place] [address] Oct, [facility] [address] [facility] [id number] [place] [address] Oct, [facility] [id number] [place] [address] September, [facility] [id number] [place] [address] September, [facility] [id number] [place] [address] September, [facility] [address] [facility] [id number] [place] [address] September, [facility] [id number] [place] [address] September, [facility] [id number] [place] [address] September, [facility] [id number] [place] [address] Aug, [facility] [address] [facility] [id number] [place] [address] Aug, [facility] [address] [id number] [place] [address] Aug, [facility] [id number] [place] [address] Aug, [facility] [id number] [place] [address] Jul, [facility] [id number] [place] [address] Jul, [facility] [id number] [place] [address] Jun, [facility] [id number] [place] [address] Jun, [facility] [id number] [place] [address] May, [facility] [id number] [place] [address] May, [facility] [id number] [place] [address] Jan, [facility] [id number] [place] [address] Dec, [facility] [id number] [place] [address] Jun, [facility] [id number] [place] [address] May, [facility] [id number] [place] [address] Nov, [facility] [id number] [place] [address] September, [facility] [id number] [place] [address] Aug, [facility] [id number] [place] [address] Aug, [facility] [id number] [place] [address] Aug, [facility] [id number] [place] [address] Aug, [facility] [id number] [place] [address] Nov, [facility] [id number] [place] [address] Oct, [facility] [place] [id number] [place] [address] Jul, [facility] [place] [id number] [place] [address] Feb, [facility] [place] [id number] [place] [address] Feb, [facility] [place] [id number] [place] [address] Apr, [facility] [place] [id number] [place] [address] Apr, [facility] [place] [id number] [place] [address] Feb, [facility] [place] [id number] [place] [address] Feb, [facility] [place] [id number] [place] [address] Jul, IMMUNIZATIONS No Known Immunizations SOCIAL HISTORY [...]
--- OUTSIDE RECORDS SUMMARY | 2019-09-09 08:37 | XMS REPORT ---
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 Name Role Phone MICHAEL CEDILLOMELIZA Unavailable PROBLEMS Type Condition ICD9-CM Code BCH58-JP Code Onset Dates Condition S tatus SNOMED Code Problem Restless legs syndrome G25.81 Active 229646891 Problem GERD (gastroesophageal reflux disease) K21.9 Active 084232369 Problem Sinusitis, unspecified chronicity, unspecified location J32.9 Active 51018101 Problem COPD (chronic obstructive pulmonary disease) J44.9 Active 58298749 Problem Ulcer of right foot, unspecified ulcer stage L97.5 19 Active 76313559 Problem DM neuro manif type II E11.49 Active 37239981 Problem Constipation, unspecified constipation type K59.00 Active 87817809 Problem Schizoaffective disorder, depressive type F25.1 Active 93602776 Problem PAD (peripheral artery disease) I73.9 Active 674914306 Problem Chronic hepatitis C without hepatic coma B18.2 Active 578474481 Problem Polyneuropathy G62.9 Active 80170 000 Problem Alcohol use disorder, severe, dependence F10.20 Active 75259714 Problem Methamphetamine use disorder, severe, 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 Active 535784480 Problem Morbid (severe) obesity due to excess calories E66 .01 Active 976241001 Problem Neuropathy G62.9 Active 816556990 Problem ED (erectile dysfunction) N52.9 Acti ve 719920777 Problem 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 Active 200897460 Problem Substance abuse F19.10 Active 6621 4007 Problem Personality disorder F60.9 Active 82219174 Problem HTN (hypertension) I10 Active 3 4003803 Problem Cannabis use disorder, severe, dependence F12.20 Active 35753764 Problem Ulcer of toe of right foot, unspecified ulcer stage L97.519 Active 052329814 Problem Amputated toe of right foot S98.131A Ac tive 463743730 Problem Hammer toe, unspecified laterality M20.40 Active 631882466 ALLERGIES No Information ENCOUNTERS Encounter Location Date Diagnosis [place] [address] [address] 13 Jun, 2019 [place] [address] [address] May, [place] [address] [address] May, [place] [address] [address] May, Polyneuropathy G62.9 ; HTN (hypertension ) I10 ; Schizoaffective disorder, depressive type F25.1 ; PAD (peripheral artery disease) I73.9 ; COPD (chronic obstructive pulmonary disease) J44.9 ; Amputated toe of right foot S98.131A ; Methamphetamine use disorder, severe, 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 and Type 2 diabetes mellitus with other diabetic neurological complication E11.49 [place] [address] [address] May, [place] [address] [address] May, [place] [address] [address] May, [place] [address] [address] May, [place] [address] [address] May, [place] [address] [address] May, Chronic hepatitis C without hepatic coma B18.2 and HTN (hypertension) I10 [place] [address] [address] May, Neuropathy G62.9 [place] [address] [address] Apr, [facility] [address] [place] [address] Apr, [facility] [address] [place] [id number] [place] [address] Apr, [facility] [address] [address] Apr, [facility] [address] [address] Apr, [facility] [address] [address] Apr, [facility] [address] [address] Apr, [facility] [address] [address] Apr, Ulcer of right foot, unspecified ulcer s tage L97.519 ; Type 2 diabetes mellitus with other diabetic neurological complication E11.49 ; Onychomycosis B35.1 and Hammer toe, unspecified laterality M20.40 [place] [address] [address] Apr, [facility] [address] [address] Apr, HTN (hypertension) I10 and Ulcer of toe of right foot, unspecified ulcer stage L97.519 [facility] [address] [address] Apr, [facility] [address] [address] Apr, Schizoaffective disorder, depressive typ e F25.1 ; Other half-way (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.899 and Stimulant use disorder F15.90 [facility] [address] [address] Apr, [facility] [address] [address] Apr, [facility] [address] [address] Apr, [facility] [address] [address] Mar, Pre-ulcerative calluses L84 [facility] [address] [address] Mar, HTN (hypertension) I10 ; DM neuro manif type II E11.49 ; Morbid (severe) obesity due to excess calories E66.01 and Polyneuropathy G62.9 [place] [address] [address] Mar, [facility] [address] [address] Mar, [place] [address] [address] Mar, Onychomycosis B35.1 ; Callus of foot L84 and Hammer toe, unspecified laterality M20.40 [facility] [address] [address] Mar, Neuropathy G62.9 [facility] [address] [address] Mar, [facility] [address] [address] Mar, [facility] [address] [address] Mar, [facility] [address] [facility] [id number] [address] [place] [address] Mar, Constipation, unspecified co nstipation type K59.00 [facility] [address] [address] Mar, [facility] [address] [address] Mar, [facility] [address] [address] Mar, Chronic hepatitis C without hepatic coma B18.2 ; High risk medication use Z79.899 and Encounter for immunization Z23 [place] [address] [address] Mar, [facility] [address] [address] Mar, Neuropathy G62.9 [facility] [address] [facility] [id number] [place] [address] Mar, High risk sexual behavior, u nspecified type Z72.51 [place] [address] [address] Feb, Callus of foot L84 [place] [address] [address] Feb, Callus of foot L84 [place] [address] [address] Feb, [place] [address] [address] Feb, [facility] [address] [place] [address] Feb, Methamphetamine use disorder, severe, 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 ; Alcohol use disorder, severe, dependence F10.20 and Cannabis use disorder, severe, dependence F12.20 [place] [address] [address] Feb, Chronic hepatitis C without hepatic coma B18.2 [facility] [address] [place] [address] Feb, Methamphetamine use disorder, severe, 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 ; Alcohol use disorder, severe, dependence F10.20 and Cannabis use disorder, severe, dependence F12.20 [place] [address] [address] Feb, [place] [address] [address] Feb, Chronic hepatitis C without hepatic coma B18.2 [facility] [address] [place] [address] Feb, Methamphetamine use disorder, severe, 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 ; Alcohol use disorder, severe, dependence F10.20 and Cannabis use disorder, severe, dependence F12.20 [place] [address] [place] [address] Feb, [place] [address] Feb, [place] [address] Feb, [place] [address] Feb, [place] [address] Feb, Neuropathy G62.9 [place] [address] Feb, Schizoaffective disorder, depressive typ e F25.1 ; 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 and Stimulant use disorder F15.90 [place] [address] Feb, Onychomycosis B35.1 and Neuropathy G62.[address] [address] Feb, [place] [address] [address] Feb, [place] [address] [address] Feb, [facility] [address] [place] [address] Feb, Methamphetamine use disorder, severe, 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 ; Alcohol use disorder, severe, dependence F10.20 and Cannabis use disorder, severe, dependence F12.20 [place] [address] [place] [address] Feb, Chronic hepatitis C without hepatic coma B18.2 and Encounter for immunization Z23 [facility] [address] [address] 30 Jan, 2019 [facility] [address] [address] Jan, [facility] [address] [address] Jan, [facility] [address] [place] [address] Jan, Methamphetamine use disorder, severe, 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 ; Alcohol use disorder, severe, dependence F10.20 and Cannabis use disorder, severe, dependence F12.20 [facility] [address] [address] Jan, [facility] [address] [address] Jan, [facility] [address] [address] Jan, History of amputation Z89.9 [facility] [address] [facility] [id number] [address] [place] [address] Jan, [facility] [address] [address] Jan, [facility] [address] [address] Jan, [facility] [address] [address] Jan, [facility] [address] [address] Jan, [facility] [address] [address] Jan, [facility] [address] [address] Jan, [facility] [address] [place] [address] Jan, [facility] [address] [place] [address] Jan, Methamphetamine use disorder, severe, 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 ; Alcohol use disorder, severe, dependence F10.20 and Cannabis use disorder, severe, dependence F12.20 [place] [address] [address] 18 Jan, 2019 [facility] [address] [place] [address] 16 Jan, 2019 [place] [address] [place] [address] 13 Jan, 2019 [facility] [address] [place] [address] Jan, Methamphetamine use disorder, severe, 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 ; Alcohol use disorder, severe, dependence F10.20 and Cannabis use disorder, severe, dependence F12.20 [facility] [address] [place], [place] [address] Jan, Methamphetamine use disorder, severe, 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 ; Cannabis use disorder, severe, dependence F12.20 and Alcohol use disorder, severe, dependence F10.20 [place] [address] [place] [address] Jan, Chronic hepatitis C without hepatic coma B18.[address] [address] Jan, Neuropathy G62.9 [place] [address] [place] [id number] Jan, [place] [address] [address] Jan, [place] [address] Jan, Chronic hepatitis C without hepatic coma B18.2 [place] [address] [place] [address] Dec, Right foot pain M79.671 [place] [address] [address] Dec, Schizoaffective disorder, depressive typ e F25.1 ; 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 and Stimulant use disorder F15.90 [place] [address] [address] Dec, [facility] [address] [place] [address] Dec, Methamphetamine use disorder, severe, 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 ; Alcohol use disorder, severe, dependence F10.20 and Cannabis use disorder, severe, dependence F12.[address] [address] Dec, [address] [address] Dec, [facility] [address] [address] Dec, Ulcer of toe of right foot, unspecified ulcer stage L97.[address] [address] Dec, [facility] [address] [place] [address] Dec, Methamphetamine use disorder, severe, 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 ; Cannabis use disorder, severe, dependence F12.20 and Alcohol use disorder, severe, dependence F10.[address] [address] Dec, [facility] [address] [place] [address] Dec, Allergic contact dermatitis, unspecified trigger L23.9 and Ankle swelling, unspecified laterality M25.[address] [address] Dec, [address] [address] Dec, [address] [address] Dec, Methamphetamine use disorder, severe, 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 ; Alcohol use disorder, severe, dependence F10.20 and Cannabis use disorder, severe, dependence F12.20 [place] [address] [address] Dec, [place] [address] [address] Dec, [place] [address] [address] Dec, Diarrhea of presumed infectious origin R 19.7 ; Chronic hepatitis C without hepatic coma B18.2 and Nail fungus B35.1 [place] [address] [address] Dec, Neuropathy G62.9 [place] [address] [address] Dec, [place] [address] [address] Nov, Schizoaffective disorder, depressive typ e F25.1 ; Other half-way (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.899 and Stimulant use disorder F15.90 [place] [address] [address] Nov, [place] [address] [place] [address] Nov, Substance abuse F19.10 [place] [address] [address] Nov, [place] [address] [address] Nov, Chronic hepatitis C without hepatic coma B18.2 [place] [address] [address] Nov, [place] [address] [address] Nov, Fatigue, unspecified type R53.83 [place] [address] [address] Nov, Schizoaffective disorder, depressive typ e F25.1 ; 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 and Stimulant use disorder F15.90 [place] [address] [address] Nov, [facility] [address] [address] Nov, [place] [address] [address] Nov, [place] [address] [address] Oct, Neuropathy G62.9 [place] [address] [address] Oct, Prediabetes R73.03 ; Other half-way (cu rrent) drug therapy Z79.899 and Chronic hepatitis C without hepatic coma B18.2 [place] [address] [address] Oct, Schizoaffective disorder, depressive typ e F25.1 and 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 [place] [address] [address] Oct, [facility] [address] [place], [place] [id number] [address] [place] [address] 14 Oct, 2018 Sore throat J02.9 and Acute non-recurrent frontal sinusitis J01.10 [place] [address] [address] Oct, [facility] [address] [place] [address] 07 Oct, 2018 Acute URI J06.9 [place] [address] [address] Oct, [place] [address] [address] Oct, Schizoaffective disorder, depressive typ e F25.1 [facility] [address] [place] [id number] [place] [address] Oct, [facility] [address] [place] [id number] [place] [address] Oct, Substance abuse F19.10 [facility] [address] [facility] [id number] [address] [place] [address] Oct, Bronchitis J40 [facility] [address] [place] [address] September, Back pain M54.9 [facility] [address] [place] [id number] [place] [address] September, Schizoaffective disorder, depressive typ e F25.1 [facility] [address] [place] [id number] [place] [address] September, [facility] [address] [place] [address] September, Substance abuse F19.10 [facility] [address] [place] [id number] [place] [address] September, [facility] [address] [place] [id number] [place] [address] September, Schizoaffective disorder, depressive typ e F25.1 [facility] [address] [place] [id number] [place] [address] September, Substance abuse F19.10 [facility] [address] [id number] [place] [address] September, [facility] [address] [address] September, Substance abuse F19.10 [facility] [address] [id number] [place] [address] September, Encounter for Medicare annual wellness e xam Z00.00 ; Ulcer of right foot, unspecified ulcer stage L97.519 ; Type 2 diabetes mellitus with other diabetic neurological complication E11.49 ; COPD (chronic obstructive pulmonary disease) J44.9 ; PAD (peripheral artery disease) I73.9 ; Schizoaffective disorder, depressive type F25.1 and Routine adult health maintenance Z00.00 [facility] [address] [address] September, Schizoaffective disorder, depressive typ e F25.1 [place] [address] [address] September, [place] [address] [address] September, [place] [address] [address] September, Schizoaffective disorder, depressive typ e F25.1 [place] [address] [address] Aug, [facility] [address] [facility] [id number] [place] [address] Aug, Rib pain on left side R07.81 and Closed fracture of multiple ribs of left side with routine healing, subsequent encounter S22.42XD [place] [address] [address] Aug, [place] [address] [address] Aug, [place] [address] [address] Jul, [place] [address] [address] Jul, [place] [address] [address] Jul, [place] [address] [address] Jul, Back pain M54.9 [place] [address] [address] Jul, Polyneuropathy in diseases classified el sewhere G63 [facility] [address] [facility] [id number] [address] [place] [address] Jul, Constipation, unspecified co nstipation type K59.00 and Burn T30.0 [facility] [address] [address] Jul, [facility] [address] [address] Jun, 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 [place] [address] [address] Jun, Back pain M54.9 [facility] [address] [address] Jun, 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 [facility] [address] [address] Jun, [facility] [address] [address] Jun, [facility] [address] [address] Jun, [facility] [address] [address] May, [facility] [address] [address] May, Back pain M54.9 [facility] [address] [address] May, [place] [address] [address] May, 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 ; Chronic hepatitis C without hepatic coma B18.2 and HTN (hypertension) I10 [place] [address] [address] Apr, Back pain M54.9 [facility] [address] [place] [id number] [place] [address] Apr, [facility] [address] [place] [id number] [place] [address] Apr, Polyneuropathy in diseases classified [facility] [address] [place] [id number] [place] [address] Mar, Back pain M54.9 [facility] [address] [place] [id number] [place] [address] Mar, [facility] [address] [place] [id number] [place] [address] Mar, Back pain M54.9 [facility] [address] [place] [id number] [place] [address] Mar, [facility] [address] [place] [id number] [place] [address] Mar, [facility] [address] [place] [id number] [place] [address] Mar, Polyneuropathy in diseases classified [facility] [address] [place] [id number] [place] [address] Feb, Back pain M54.9 [facility] [address] [place] [id number] [place] [address] Jan, Back pain M54.9 [facility] [address] [place] [id number] [place] [address] Jan, [facility] [address] [place] [id number] [place] [address] Jan, [facility] [address] [place] [id number] [place] [address] Dec, Back pain M54.9 [facility] [address] [place] [id number] [place] [address] Dec, [facility] [address] [address] Dec, Upper respiratory tract infection, unspe cified type J06.9 [facility] [address] [address] Dec, [facility] [address] [facility] [id number] [address] [place] [address] Dec, Acute suppurative otitis med ia of right ear without spontaneous rupture of tympanic membrane, recurrence not specified H66.001 and Acute nasopharyngitis J00 [place] [address] [address] Dec, Back pain M54.9 [place] [address] [address] Dec, Foot infection L08.9 and Type 2 diabetes mellitus with other diabetic neurological complication E11.49 [place] [address] [address] Nov, Cellulitis of toe of right foot L03.031 ; Polyneuropathy in diseases classified elsewhere G63 and HTN (hypertension) I10 [place] [address] [address] Nov, [place] [address] [address] Nov, [place] [address] [address] Nov, Back pain M54.9 [place] [address] [address] Nov, Shortness of breath R06.02 [place] [address] [address] Nov, [place] [address] [address] Oct, [place] [address] [address] Oct, [facility] [address] [place] [id number] [place] [address] Oct, [facility] [address] [address] Oct, [facility] [address] [id number] [place] [address] Oct, [facility] [address] [address] Oct, Back pain M54.9 [facility] [address] [address] Oct, Back pain M54.9 [facility] [address] [address] Oct, [facility] [address] [address] September, [facility] [address] [address] September, [facility] [address] [address] September, [facility] [address] [address] September, 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 and Hypotension, unspecified hypotension type I95.9 [facility] [id number] [place] [address] September, [facility] [id number] [place] [address] September, [facility] [address] [address] September, Back pain M54.9 [facility] [id number] [place] [address] Aug, [facility] [address] [address] Aug, Acute cystitis with hematuria N30.01 ; U lcer of right foot, unspecified ulcer stage L97.519 ; HTN (hypertension) I10 ; COPD (chronic obstructive pulmonary disease) J44.9 and DM neuro manif type II E11.49 [place] [address] [address] Aug, Back pain M54.9 [place] [address] [address] Jul, [place] [address] [address] Jul, Back pain M54.9 [place] [address] [address] Jul, [place] [address] [address] Jul, DM neuro manif type II E11.49 and Ulcer of right foot, unspecified ulcer stage L97.519 [place] [address] [address] Jun, [place] [address] [address] Jun, [place] [address] [address] May, 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 ; GERD (gastroesophageal reflux disease) K21.9 and PAD (peripheral artery disease) I73.9 [place] [address] [address] May, Decubital ulcer L89.90 ; Diabetes E11.9 and GERD (gastroesophageal reflux disease) K21.9 [place] [address] [address] May, [place] [address] [address] Apr, [place] [address] [address] Mar, [facility] [id number] [place] [address] Mar, [facility] [address] [address] Feb, [facility] [id number] [place] [address] Feb, [facility] [address] [address] Jan, [facility] [address] [address] Jan, HTN (hypertension) I10 [facility] [address] [address] Jan, [facility] [address] [address] Dec, Back pain M54.9 [facility] [address] [address] Dec, Back pain M54.9 [facility] [address] [facility] [id number] [address] [place] [address] Dec, Encounter for immunization Z 23 and Puncture wound of right foot, initial encounter S91.331A [facility] [address] [address] Dec, [facility] [address] [address] Nov, [facility] [address] [address] Nov, COPD (chronic obstructive pulmonary dise ase) J44.9 [facility] [address] [address] Nov, [facility] [address] [address] Oct, [facility] [address] [address] Oct, [place] [address] [address] September, Onychomycosis B35.1 and DM neuro manif t ype II E11.49 [facility] [address] [address] September, [facility] [address] [address] Aug, [place] [address] [address] Jul, Sinusitis, unspecified chronicity, unspe cified location J32.9 and Cough R05 [place] [address] [address] Jul, Back pain M54.9 [place] [address] [address] 14 Jun, 2016 Back pain M54.9 [place] [address] [address] 06 Jun, 2016 COPD (chronic obstructive pulmonary dise ase) J44.9 [place] [address] [address] May, [place] [address] [address] May, [place] [address] [address] May, Back pain M54.9 [facility] [address] [address] May, [place] [address] [address] May, [facility] [address] [address] May, Diabetes E11.9 [place] [address] [address] May, Diabetes E11.9 ; GERD (gastroesophageal reflux [...] C screening test Z11.59 [facility] [address] [address] 04 May, 2016 HTN (hypertension) I10 [facility] [address] [address] 29 Apr, 2016 [facility] [address] [address] Apr, [facility] [address] [address] Apr, [facility] [address] [address] Apr, [facility] [address] [address] Apr, [facility] [address] [address] Mar, [facility] [address] [address] Mar, [facility] [address] [address] Mar, [facility] [address] [address] Mar, [facility] [address] [address] Mar, Dental examination Z01.20 [facility] [address] [address] Feb, [facility] [address] [address] Feb, [facility] [id number] [place] [address] Feb, Back pain M54.9 [facility] [address] [place] [address] Jan, [facility] [address] [address] Jan, [facility] [address] [address] Dec, Diabetes E11.9 ; GERD (gastroesophageal reflux disease) K21.9 ; ED (erectile dysfunction) N52.9 ; HTN (hypertension) I10 ; Insomnia G47.00 ; COPD (chronic obstructive pulmonary disease) J44.9 ; Neuropathy G62.9 and Bipolar depression F31.30 [facility] [address] [address] Dec, 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 and Onychomycosis B35.1 [facility] [id number] [place] [address] Dec, [facility] [address] [address] Dec, [facility] [address] [place] [address] Dec, [facility] [address] [address] Dec, [facility] [address] [place] [address] Nov, [facility] [address] [address] Nov, [facility] [address] [place] [address] Oct, [facility] [address] [address] Oct, [facility] [address] [address] 07 Oct, 2015 Back pain M54.9 [facility] [address] [address] Oct, [facility] [address] [address] Oct, [facility] [address] [address] Oct, [facility] [address] [address] Oct, HTN (hypertension) I10 [place] [address] [address] Oct, Back pain M54.9 [place] [address] [address] Oct, Chronic pain syndrome G89.4 [place] [address] [address] September, Back pain M54.9 [place] [address] [address] September, HTN (hypertension) I10 [place] [address] [address] Aug, Porokeratosis Q82.8 ; Onychomycosis B35. 1 and Type 2 diabetes mellitus with other diabetic neurological complication E11.49 [place] [address] [address] Aug, GERD (gastroesophageal reflux disease) K 21.9 ; Diabetes E11.9 ; HTN (hypertension) I10 ; Insomnia G47.00 ; Restless legs syndrome G25.81 ; COPD (chronic obstructive pulmonary disease) J44.9 ; Back pain M54.9 and Bipolar 1 disorder F31.9 [place] [address] [address] Aug, [place] [address] [address] Aug, [facility] [address] [place] [id number] [place] [address] Aug, [facility] [id number] [place] [address] Aug, [facility] [id number] [place] [address] Jul, [facility] [id number] [place] [address] Jul, [facility] [id number] [place] [address] Jul, [facility] [address] [id number] [place] [address] 16 Jul, 2015 [facility] [address] [id number] [place] [address] Jul, [facility] [id number] [place] [address] Jul, [facility] [address] [id number] [place] [address] 17 Jun, 2015 Decubital ulcer L89.90 ; Diabetes E11.9 ; Back pain M54.9 ; HTN (hypertension) I10 and COPD (chronic obstructive pulmonary disease) J44.9 [facility] [id number] [place] [address] Jun, [facility] [id number] [place] [address] Jun, [facility] [id number] [place] [address] Jun, [facility] [id number] [place] [address] Jun, [facility] [id number] [place] [address] 03 Jun, 2015 Diabetes E11.9 ; Insomnia G47.00 ; Decub ital ulcer L89.90 ; GERD (gastroesophageal reflux disease) K21.9 ; Back pain M54.9 ; Superficial fungus infection of skin B36.9 and HTN (hypertension) I10 [facility] [address] [facility] [id number] [place] [id number] 02 Jun, 2015 Dental examination Z01.20 [facility] [id number] [place] [address] May, [facility] [address] [address] May, [facility] [address] [address] May, [place] [address] [address] May, Diabetes E11.9 ; HTN (hypertension) I10 and Decubital ulcer L89.90 [place] [address] [address] May, HTN (hypertension) I10 ; Decubital ulcer L89.90 and Diabetes E11.9 [place] [address] [address] Apr, Diabetes E11.9 ; GERD (gastroesophageal reflux disease) K21.9 ; Back pain M54.9 ; HTN (hypertension) I10 ; Restless legs syndrome G25.81 and Decubital ulcer L89.90 [place] [address] [address] Apr, [address] [address] Apr, Diabetes E11.9 ; HTN (hypertension) I10 ; Restless legs syndrome G25.81 ; GERD (gastroesophageal reflux disease) K21.9 and COPD (chronic obstructive pulmonary disease) J44.9 [facility] [address] [address] Mar, [place] [address] [address] Mar, [place] [address] [address] Mar, Diabetes E11.9 ; Abscess L02.91 and Rest less legs syndrome G25.[address] [address] Mar, [place] [address] [address] Feb, GERD (gastroesophageal reflux disease) K 21.9 ; Back pain M54.9 ; ED (erectile dysfunction) N52.9 ; Diabetes E11.9 ; HTN (hypertension) I10 and Insomnia G47.[address] [address] Feb, [address] [address] Feb, [address] [address] Jan, [address] [address] Jan, Diabetes 250.00 ; Nondependent cannabis abuse, continuous 305.21 ; Cough 786.2 ; Schizoaffective disorder, unspecified 295.70 ; Sciatica 724.3 ; Other, mixed, or unspecified nondependent drug abuse, unspecified 305.90 ; Chronic pain 338.29 ; GERD (gastroesophageal reflux disease) 530.81 and HTN (hypertension) 401.[address] [address] Jan, [address] [address] Jan, [address] [address] Jan, Chronic pain associated with significant psychosocial dysfunction 338.4 ; Diabetes mellitus without mention of complication, type I [juvenile type], uncontrolled 250.03 ; Benign essential hypertension 401.1 ; Schizoaffective disorder, unspecified 295.70 ; Wheezing 786.07 ; Ear ache 388.70 ; Cough 786.2 ; Sciatica 724.3 and Foot pain, bilateral 729.5 [facility] [address] [address] Dec, [facility] [address] [address] Dec, [facility] [address] [address] Dec, [facility] [address] [address] Dec, [facility] [address] [address] Dec, [facility] [address] [address] Nov, Elevated liver enzymes 790.5 [facility] [address] [address] Nov, [facility] [address] [address] Nov, [facility] [address] [address] Nov, [facility] [address] [address] Nov, Benign essential hypertension 401.1 ; Di abetes mellitus without mention of complication, type I [juvenile type], uncontrolled 250.03 and Nondependent cannabis abuse, continuous 305.21 [facility] [address] [address] Oct, Cellulitis 682.9 and Benign essential hy pertension 401.1 [facility] [address] [address] Oct, [facility] [address] [address] September, [facility] [address] [address] September, [facility] [address] [id number] [place] [address] Aug, [facility] [address] [id number] [place] [address] Aug, [facility] [address] [id number] [place] [address] 14 Aug, 2014 [facility] [address] [id number] [place] [address] Aug, [facility] [address] [facility] [id number] [place] [address] Jul, [facility] [address] [id number] [place] [address] Jul, [facility] [address] [id number] [place] [address] Jul, [facility] [address] [id number] [place] [address] Jul, [facility] [address] [id number] [place] [address] Jul, [facility] [address] [id number] [place] [address] Jul, [facility] [address] [id number] [place] [address] Jun, [facility] [address] [id number] [place] [address] Jun, [facility] [address] [id number] [place] [address] Jun, [facility] [address] [id number] [place] [address] Jun, [facility] [address] [id number] [place] [address] Jun, [facility] [address] [id number] [place] [address] May, [facility] [address] [id number] [place] [address] May, [facility] [address] [id number] [place] [address] May, [facility] [address] [id number] [place] [address] May, [facility] [address] [id number] [place] [address] May, [facility] [address] [id number] [place] [address] May, [facility] [address] [id number] [place] [address] May, [facility] [address] [id number] [place] [address] May, [facility] [address] [id number] [place] [address] Apr, [facility] [address] [id number] [place] [address] Apr, [facility] [address] [id number] [place] [address] Apr, [facility] [address] [id number] [place] [address] Apr, [facility] [address] [id number] [place] [address] Mar, [facility] [address] [id number] [place] [address] Mar, [facility] [address] [id number] [place] [address] Mar, [facility] [address] [id number] [place] [address] Mar, [facility] [address] [id number] [place] [address] Feb, [facility] [address] [id number] [place] [address] Feb, [facility] [address] [facility] [id number] [place] [address] Feb, [facility] [address] [id number] [place] [address] Feb, [facility] [address] [id number] [place] [address] Feb, [facility] [address] [id number] [place] [address] Feb, [facility] [address] [id number] [place] [address] Jan, [facility] [address] [id number] [place] [address] Jan, [facility] [address] [id number] [place] [address] Jan, [facility] [address] [id number] [place] [address] Jan, [facility] [address] [id number] [place] [address] Dec, [facility] [address] [id number] [place] [address] Dec, [facility] [address] [id number] [place] [address] Dec, [facility] [address] [id number] [place] [address] Dec, [facility] [address] [id number] [place] [address] Dec, [facility] [address] [id number] [place] [address] Dec, [facility] [address] [id number] [place] [address] Oct, [facility] [address] [id number] [place] [address] Oct, [facility] [address] [id number] [place] [address] September, [facility] [address] [facility] [id number] [place] [address] September, [facility] [address] [facility] [id number] [place] [address] September, [facility] [address] [id number] [place] [address] September, [facility] [address] [id number] [place] [address] September, [facility] [address] [facility] [id number] [place] [address] September, [facility] [address] [id number] [place] [address] Aug, [facility] [address] [id number] [place] [address] Aug, [facility] [address] [id number] [place] [address] Aug, [facility] [address] [id number] [place] [address] Aug, [facility] [address] [id number] [place] [address] Jul, [facility] [address] [id number] [place] [address] Jul, [facility] [address] [id number] [place] [address] Jun, [facility] [address] [facility] [id number] [place] [address] Jun, [facility] [address] [facility] [id number] [place] [address] May, [facility] [address] [id number] [place] [address] May, [facility] [address] [id number] [place] [address] Jan, [facility] [address] [id number] [place] [address] Dec, [facility] [address] [id number] [place] [address] Jun, [facility] [address] [id number] [place] [address] May, [facility] [address] [id number] [place] [address] Nov, [facility] [address] [id number] [place] [address] September, [facility] [address] [id number] [place] [address] Aug, [facility] [address] [id number] [place] [address] Aug, [facility] [address] [id number] [place] [address] Aug, [facility] [id number] [place] [address] Aug, [facility] [address] [id number] [place] [address] Nov, [facility] [address] [id number] [place] [address] Oct, [facility] [address] [id number] [place] [address] Jul, [facility] [address] [id number] [place] [address] Feb, [facility] [address] [id number] [place] [address] Feb, [facility] [id number] [place] [address] Apr, [facility] [id number] [place] [address] Apr, [facility] [id number] [place] [address] Feb, [facility] [address] [facility] [id number] [place] [address] Feb, [facility] [address] [facility] [id number] [place] [address] Jul, IMMUNIZATIONS No Known Immunizations SOCIAL HISTORY [...]
[2019-09-09 08:39] LABS: BASOPHILS % (AUTO) 0 % (0-10); EOSINOPHILS % (AUTO) 0 % (0-10); HEMATOCRIT 45 % (40-54); HEMOGLOBIN 16.3 G/DL (13.3-17.7); LYMPHOCYTES # (AUTO) 1.9 X 10^3 (1.0-4.0); LYMPHOCYTES % (AUTO) 16 % (12-44); MEAN CORPUSCULAR HEMOGLOBIN 34 PG (25-34); MEAN CORPUSCULAR HGB CONC 37 G/DL (32-36); MEAN CORPUSCULAR VOLUME 92 FL (80-99); MONOCYTES # (AUTO) 1.7 X 10^3 (0.0-1.0); MONOCYTES % (AUTO) 14 % (0-12); NEUTROPHILS # (AUTO) 8.4 X 10^3 (1.8-7.8); NEUTROPHILS % (AUTO) 69 % (42-75); PLATELET COUNT 191 10^3/uL (130-400); RED CELL DISTRIBUTION WIDTH 12.4 % (10.0-14.5); WHITE BLOOD COUNT 12.1 10^3/uL (4.3-11.0)
[2019-09-09 08:51] LABS: INR 1.1 (0.8-1.4); PROTHROMBIN TIME PATIENT 14.9 SEC (12.2-14.7)
--- OUTSIDE RECORDS SUMMARY | 2019-09-09 08:52 | XMS REPORT | Continuity of Care Document ---
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 CANNABIS USE, UNSPECIFIED, UNCOMPLICATED 09/25/2017 WERNER DRIVER APRN Ot F15.90 OTHER STIMULANT USE, UNSPECIFIED, UNCOMP 09/25/2017 WERNER DRIVER APRN Ot F20 .9 SCHIZOPHRENIA, UNSPECIFIED 09/25/2017 DRIVRE, PETER J DERMATOLOGIST AND DERMATOPATHOLOGIST Ot F22 DELUSIONAL DISORDERS 09/25/2017 WERNER DRIVER DERMATOLOGIST AND DERMATOPATHOLOGIST Ot F31 .9 BIPOLAR DISORDER, UNSPECIFIED 09/25/2017 WERNER DRIVER DERMATOLOGIST AND DERMATOPATHOLOGIST Ot L97.519 NON-PRS CHRONIC ULCER OTH PRT RIGHT FOOT 09/25/2017 WERNER DRIVER DERMATOLOGIST AND DERMATOPATHOLOGIST Ot 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) 10/01/2017 CLAY BRENNAN MD Ot E11.42 TYPE 2 DIABETES MELLITUS WITH DIABETIC P 10/01/2017 CLAY BRENNAN MD, Ot E11.621 TYPE 2 DIABETES MELLITUS WITH FOOT ULCER 10/01/2017 CLAY BRENNAN MD Ot L97.514 NON-PRS CHRONIC ULCER OTH PRT RIGHT FOOT 10/02/2017 CLAY BRENNAN MD, Ot E11.42 TYPE 2 DIABETES MELLITUS WITH DIABETIC P 10/02/2017 CLAY BRENNAN MD, Ot E11.621 TYPE 2 DIABETES MELLITUS WITH FOOT ULCER 10/02/2017 CLAY BRENNAN MD, Ot F20 .9 SCHIZOPHRENIA, UNSPECIFIED 10/02/2017 CLAY BRENNAN MD Ot L97.514 NON-PRS CHRONIC ULCER OTH PRT RIGHT FOOT 10/02/2017 CLAY BRENNAN MD Ot M86.271 SUBACUTE OSTEOMYELITIS, RIGHT ANKLE AND 10/02/2017 CLAY BRENNAN MD Ot E11.42 TYPE 2 DIABETES MELLITUS WITH DIABETIC P 10/02/2017 CLAY BRENNAN MD Ot E11.621 TYPE 2 DIABETES MELLITUS WITH FOOT ULCER 10/02/2017 CLAY BRENNAN MD Ot F20 .9 SCHIZOPHRENIA, UNSPECIFIED 10/02/2017 CLAY BRENNAN MD Ot L97.514 NON-PRS CHRONIC ULCER OTH PRT RIGHT FOOT 10/02/2017 CLAY BRENNAN MD, Ot M86.271 SUBACUTE OSTEOMYELITIS, RIGHT ANKLE AND 10/05/2017 CLARISSE HERNANDEZ, KEVIN Avila Ot L81. 9 DISORDER OF PIGMENTATION, UNSPECIFIED 10/07/2017 CLAY BRENNAN MD Ot E11.42 TYPE 2 DIABETES MELLITUS WITH DIABETIC P 10/07/2017 CLAY BRENNAN MD, Ot E11.621 TYPE 2 DIABETES MELLITUS WITH FOOT ULCER 10/07/2017 CLAY BRENNAN MD Ot F20 .9 SCHIZOPHRENIA, UNSPECIFIED 10/07/2017 CLAY BRENNAN MD Ot L97.512 NON-PRS CHRONIC ULCER OTH PRT RIGHT FOOT 10/07/2017 CLAY BRENNAN MD Ot L97.514 NON-PRS CHRONIC ULCER OTH PRT RIGHT FOOT 10/07/2017 CLAY BRENNAN MD Ot M86.271 SUBACUTE OSTEOMYELITIS, RIGHT ANKLE AND 10/08/2017 CLARISSE HERNANDEZ, KEVIN Avila Ot L81. 9 DISORDER OF PIGMENTATION, UNSPECIFIED 10/09/2017 CLARISSE HERNANDEZ, KEVIN Avila Ot L81. 9 DISORDER OF PIGMENTATION, UNSPECIFIED 10/19/2017 CLAY BRENNAN MD Ot E11.42 TYPE 2 DIABETES MELLITUS WITH DIABETIC P 10/19/2017 CLAY BRENNAN MD Ot E11.621 TYPE 2 DIABETES MELLITUS WITH FOOT ULCER 10/19/2017 CLAY BRENNAN MD Ot F20 .9 SCHIZOPHRENIA, UNSPECIFIED 10/19/2017 CLAY BRENNAN MD Ot L97.512 NON-PRS CHRONIC ULCER OTH PRT RIGHT FOOT 10/19/2017 CLAY BRENNAN MD Ot L97.514 NON-PRS CHRONIC ULCER OTH PRT RIGHT FOOT 10/19/2017 CLAY BRENNAN MD Ot M86.271 SUBACUTE OSTEOMYELITIS, RIGHT ANKLE AND 10/21/2017 CLAY BRENNAN MD Ot E11.42 TYPE 2 DIABETES MELLITUS WITH DIABETIC P 10/21/2017 CLAY BRENNAN MD Ot E11.621 TYPE 2 DIABETES MELLITUS WITH FOOT ULCER 10/21/2017 CLAY BRENNAN MD Ot F20 .9 SCHIZOPHRENIA, UNSPECIFIED 10/21/2017 CLAY BRENNAN MD Ot L97.514 NON-PRS CHRONIC ULCER OTH PRT RIGHT FOOT 10/21/2017 CLAY BRENNAN MD Ot M86.271 SUBACUTE OSTEOMYELITIS, [...] FOOT ULCER 10/22/2017 CLAY BRENNAN MD Ot F20 .9 SCHIZOPHRENIA, UNSPECIFIED 10/22/2017 CLAY BRENNAN MD Ot [...] FOOT ULCER 10/27/2017 CLAY BRENNAN MD Ot F20 .9 SCHIZOPHRENIA, UNSPECIFIED 10/27/2017 CLAY BRENNAN MD Ot [...] MELLITUS WITH FOOT ULCER 10/27/2017 CLAY BRENNAN MD, Ot F20 .9 SCHIZOPHRENIA, UNSPECIFIED 10/27/2017 CLAY BRENNAN MD Ot L97.512 NON-PRS CHRONIC ULCER OTH PRT RIGHT FOOT 10/27/2017 CLAY BRENNAN MD Ot L97.514 NON-PRS CHRONIC ULCER OTH PRT RIGHT FOOT 10/27/2017 CLAY BRENNAN MD Ot M86.271 SUBACUTE OSTEOMYELITIS, RIGHT ANKLE AND 11/03/2017 CLAY BRENNAN MD Ot E11.42 TYPE 2 DIABETES MELLITUS WITH DIABETIC P 11/03/2017 CLAY BRENNAN MD Ot E11.621 TYPE 2 DIABETES MELLITUS WITH FOOT ULCER 11/03/2017 CLAY BRENNAN MD Ot F20 .9 SCHIZOPHRENIA, UNSPECIFIED 11/03/2017 CLAY BRENNAN MD Ot L97.512 NON-PRS CHRONIC ULCER OTH PRT RIGHT FOOT 11/03/2017 CLAY BRENNAN MD Ot M86.271 SUBACUTE OSTEOMYELITIS, RIGHT ANKLE AND 11/03/2017 CLAY BRENNAN MD Ot E11.42 TYPE 2 DIABETES MELLITUS WITH DIABETIC P 11/03/2017 CLAY BRENNAN MD Ot E11.621 TYPE 2 DIABETES MELLITUS WITH FOOT ULCER 11/03/2017 CLAY BRENNAN MD Ot F20 .9 SCHIZOPHRENIA, UNSPECIFIED 11/03/2017 CLAY BRENNAN MD Ot L97.512 NON-PRS CHRONIC ULCER OTH PRT RIGHT FOOT 11/03/2017 CLAY BRENNAN MD Ot L97.514 NON-PRS CHRONIC ULCER OTH PRT RIGHT FOOT 11/03/2017 CLAY BRENNAN MD Ot M86.271 SUBACUTE OSTEOMYELITIS, RIGHT ANKLE AND 11/04/2017 CLAY BRENNAN MD Ot E11.42 TYPE 2 DIABETES MELLITUS WITH DIABETIC P 11/04/2017 CLAY BRENNAN MD Ot E11.621 TYPE 2 DIABETES MELLITUS WITH FOOT ULCER 11/04/2017 CLAY BRENNAN MD Ot F20 .9 SCHIZOPHRENIA, UNSPECIFIED 11/04/2017 CLAY BRENNAN MD Ot L97.512 NON-PRS CHRONIC ULCER OTH PRT RIGHT FOOT 11/04/2017 CLAY BRENNAN MD Ot L97.514 NON-PRS CHRONIC ULCER OTH PRT RIGHT FOOT 11/04/2017 CLAY BRENNAN MD Ot M86.271 SUBACUTE OSTEOMYELITIS, RIGHT ANKLE AND 11/06/2017 CLAY BRENNAN MD Ot E11.42 TYPE 2 DIABETES MELLITUS WITH DIABETIC P 11/06/2017 CLAY BRENNAN MD Ot E11.621 TYPE 2 DIABETES MELLITUS WITH FOOT ULCER 11/06/2017 CLAY BRENNAN MD Ot F20 .9 SCHIZOPHRENIA, UNSPECIFIED 11/06/2017 CLYA BRENNAN MD Ot L97.512 NON-PRS CHRONIC ULCER OTH PRT RIGHT FOOT 11/06/2017 CLAY BRENNAN MD Ot M86.271 SUBACUTE OSTEOMYELITIS, RIGHT ANKLE AND 11/09/2017 CLAY BRENNAN MD Ot E11.42 TYPE 2 DIABETES MELLITUS WITH DIABETIC P 11/09/2017 CLAY BRENNAN MD Ot E11.621 TYPE 2 DIABETES MELLITUS WITH FOOT ULCER 11/09/2017 CLAY BRENNAN MD Ot F20 .9 SCHIZOPHRENIA, UNSPECIFIED 11/09/2017 CLAY BRENNAN MD Ot L97.512 NON-PRS CHRONIC ULCER OTH PRT RIGHT FOOT 11/09/2017 CLAY BRENNAN MD Ot L97.514 NON-PRS CHRONIC ULCER OTH PRT RIGHT FOOT 11/09/2017 CLAY BRENNAN MD Ot M86.271 SUBACUTE OSTEOMYELITIS, RIGHT ANKLE AND 11/10/2017 CLAY BRENNAN MD Ot E11.42 TYPE 2 DIABETES MELLITUS WITH DIABETIC P 11/10/2017 CLAY BRENNAN MD, Ot E11.621 TYPE 2 DIABETES MELLITUS WITH FOOT ULCER 11/10/2017 CLAY BRENNAN MD Ot F20 .9 SCHIZOPHRENIA, UNSPECIFIED 11/10/2017 CLAY BRENNAN MD Ot L97.512 NON-PRS CHRONIC ULCER OTH PRT RIGHT FOOT 11/10/2017 CLAY BRENNAN MD, Ot M86.271 SUBACUTE OSTEOMYELITIS, RIGHT ANKLE AND 11/12/2017 CLAY BRENNAN MD, Ot E11.42 TYPE 2 DIABETES MELLITUS WITH DIABETIC P 11/12/2017 CLAY BRENNAN MD, Ot E11.621 TYPE 2 DIABETES MELLITUS WITH FOOT ULCER 11/12/2017 CLAY BRENNAN MD, Ot F20 .9 SCHIZOPHRENIA, UNSPECIFIED 11/12/2017 CLAY BRENNAN MD Ot L97.512 NON-PRS CHRONIC ULCER OTH PRT RIGHT FOOT 11/12/2017 CLAY BRENNAN MD Ot L97.514 NON-PRS CHRONIC ULCER OTH PRT RIGHT FOOT 11/12/2017 CLAY BRENNAN MD, Ot M86.271 SUBACUTE OSTEOMYELITIS, RIGHT ANKLE AND 11/13/2017 CLAY BRENNAN MD Ot E11.42 TYPE 2 DIABETES MELLITUS WITH DIABETIC P 11/13/2017 CLAY BRENNAN MD Ot E11.621 TYPE 2 DIABETES MELLITUS WITH FOOT ULCER 11/13/2017 CLAY BRENNAN MD, Ot F20 .9 SCHIZOPHRENIA, UNSPECIFIED 11/13/2017 CLAY BRENNAN MD Ot L97.512 NON-PRS CHRONIC ULCER OTH PRT RIGHT FOOT 11/13/2017 CLAY BRENNAN MD Ot L97.514 NON-PRS CHRONIC ULCER OTH PRT RIGHT FOOT 11/13/2017 CLAY BRENNAN MD Ot M86.271 SUBACUTE OSTEOMYELITIS, RIGHT ANKLE AND 11/20/2017 CLAY BRENNAN MD Ot E11.42 TYPE 2 DIABETES MELLITUS WITH DIABETIC P 11/20/2017 CLAY BRENNAN MD Ot E11.621 TYPE 2 DIABETES MELLITUS WITH FOOT ULCER 11/20/2017 CLAY BRENNAN MD, Ot F20 .9 SCHIZOPHRENIA, UNSPECIFIED 11/20/2017 CLAY BRENNAN MD Ot L97.512 NON-PRS CHRONIC ULCER OTH PRT RIGHT FOOT 11/20/2017 CLAY BRENNAN MD Ot M86.271 SUBACUTE OSTEOMYELITIS, RIGHT ANKLE AND 11/24/2017 CLAY BRENNAN MD Ot E11.42 TYPE 2 DIABETES MELLITUS WITH DIABETIC P 11/24/2017 CLAY BRENNAN MD, Ot E11.621 TYPE 2 DIABETES MELLITUS WITH FOOT ULCER 11/24/2017 CLAY BRENNAN MD, Ot F20 .9 SCHIZOPHRENIA, UNSPECIFIED 11/24/2017 CLAY BRENNAN MD, Ot L97.512 NON-PRS CHRONIC ULCER OTH PRT RIGHT FOOT 11/24/2017 CLAY BRENNAN MD Ot M86.271 SUBACUTE OSTEOMYELITIS, RIGHT ANKLE AND 12/01/2017 CLAY BRENNAN MD Ot E11.42 TYPE 2 DIABETES MELLITUS WITH DIABETIC P 12/01/2017 CLAY BRENNAN MD, Ot E11.621 TYPE 2 DIABETES MELLITUS WITH FOOT ULCER 12/01/2017 CLAY BRENNAN MD, Ot F20 .9 SCHIZOPHRENIA, UNSPECIFIED 12/01/2017 CLAY BRENNAN MD Ot L97.512 NON-PRS CHRONIC ULCER OTH PRT RIGHT FOOT 12/01/2017 CLAY BRENNAN MD Ot M86.271 SUBACUTE OSTEOMYELITIS, RIGHT ANKLE AND 12/08/2017 CLAY BRENNAN MD Ot E11.42 TYPE 2 DIABETES MELLITUS WITH DIABETIC P 12/08/2017 CLAY BRENNAN MD Ot E11.621 TYPE 2 DIABETES MELLITUS WITH FOOT ULCER 12/08/2017 CLAY BRENNAN MD Ot F20 .9 SCHIZOPHRENIA, UNSPECIFIED 12/08/2017 CLAY BRENNAN MD Ot L97.512 NON-PRS CHRONIC ULCER OTH PRT RIGHT FOOT 12/08/2017 CLAY BRENNAN MD Ot M86.271 SUBACUTE OSTEOMYELITIS, RIGHT ANKLE AND 09/04/2018 CLAY BRENNAN MD Ot E11.42 TYPE 2 DIABETES MELLITUS WITH DIABETIC P 09/04/2018 CLAY BRENNAN MD, Ot E11.621 TYPE 2 DIABETES MELLITUS WITH FOOT ULCER 09/04/2018 CLAY BRENNAN MD Ot F20 .9 SCHIZOPHRENIA, UNSPECIFIED 09/04/2018 CLAY BRENNAN MD Ot L97.514 NON-PRS CHRONIC ULCER OTH PRT RIGHT FOOT 09/04/2018 CLAY BRENNAN MD Ot M86.271 SUBACUTE OSTEOMYELITIS, RIGHT ANKLE AND 09/04/2018 CLAY BRENNAN MD Ot E11.42 TYPE 2 DIABETES MELLITUS WITH DIABETIC P 09/04/2018 CLAY BRENNAN MD Ot E11.621 TYPE 2 DIABETES MELLITUS WITH FOOT ULCER 09/04/2018 CLAY BRENNAN MD, Ot L97.514 NON-PRS CHRONIC ULCER OTH PRT RIGHT FOOT 09/04/2018 CLAY BRENNAN MD Ot E11.42 TYPE 2 DIABETES MELLITUS WITH DIABETIC P 09/04/2018 CLAY BRENNAN MD Ot E11.621 TYPE 2 DIABETES MELLITUS WITH FOOT ULCER 09/04/2018 CLAY BRENNAN MD Ot F20 .9 SCHIZOPHRENIA, UNSPECIFIED 09/04/2018 CLAY BRENNAN MD Ot L97.512 NON-PRS CHRONIC ULCER OTH PRT RIGHT FOOT 09/04/2018 CLAY BRENNAN MD, Ot L97.514 NON-PRS CHRONIC ULCER OTH PRT RIGHT FOOT 09/04/2018 CLAY BRENNAN MD Ot M86.271 SUBACUTE OSTEOMYELITIS, RIGHT ANKLE AND 09/04/2018 CLAY BRENNAN MD Ot E11.42 TYPE 2 DIABETES MELLITUS WITH DIABETIC P 09/04/2018 CLAY BRENNAN MD Ot E11.621 TYPE 2 DIABETES MELLITUS WITH FOOT ULCER 09/04/2018 CLAY BRENNAN MD Ot F20 .9 SCHIZOPHRENIA, UNSPECIFIED 09/04/2018 CLAY BRENNAN MD Ot L97.512 NON-PRS CHRONIC ULCER OTH PRT RIGHT FOOT 09/04/2018 CLAY BRENNAN MD Ot L97.514 NON-PRS CHRONIC ULCER OTH PRT RIGHT FOOT 09/04/2018 CLAY BRENNAN MD Ot M86.271 SUBACUTE OSTEOMYELITIS, RIGHT ANKLE AND 09/04/2018 CLAY BRENNAN MD Ot E11.42 TYPE 2 DIABETES MELLITUS WITH DIABETIC P 09/04/2018 CLAY BRENNAN MD Ot E11.621 TYPE 2 DIABETES MELLITUS WITH FOOT ULCER 09/04/2018 CLAY BRENNAN MD, Ot F20 .9 SCHIZOPHRENIA, UNSPECIFIED 09/04/2018 CLAY BRENNAN MD Ot L97.512 NON-PRS CHRONIC ULCER OTH PRT RIGHT FOOT 09/04/2018 CLAY BRENNAN MD Ot L97.514 NON-PRS CHRONIC ULCER OTH PRT RIGHT FOOT 09/04/2018 CLAY BRENNAN MD Ot M86.271 SUBACUTE OSTEOMYELITIS, RIGHT ANKLE AND 09/04/2018 CLAY BRENNAN MD Ot E11.42 TYPE 2 DIABETES MELLITUS WITH DIABETIC P 09/04/2018 CLAY BRENNAN MD Ot E11.621 TYPE 2 DIABETES MELLITUS WITH FOOT ULCER 09/04/2018 CLAY BRENNAN MD, Ot F20 .9 SCHIZOPHRENIA, UNSPECIFIED 09/04/2018 CLAY BRENNAN MD, Ot L97.512 NON-PRS CHRONIC ULCER OTH PRT RIGHT FOOT 09/04/2018 CLAY BRENNAN MD Ot M86.271 SUBACUTE OSTEOMYELITIS, RIGHT ANKLE AND 09/04/2018 CLAY BRENNAN MD, Ot E11.42 TYPE 2 DIABETES MELLITUS WITH DIABETIC P 09/04/2018 CLAY BRENNAN MD, Ot E11.621 TYPE 2 DIABETES MELLITUS WITH FOOT ULCER 09/04/2018 CLAY BRENNAN MD, Ot F20 .9 SCHIZOPHRENIA, UNSPECIFIED 09/04/2018 CLAY BRENNAN MD Ot L97.512 NON-PRS CHRONIC ULCER OTH PRT RIGHT FOOT 09/04/2018 CLAY BRENNAN MD, Ot M86.271 SUBACUTE OSTEOMYELITIS, RIGHT ANKLE AND 09/04/2018 EUSEBIOPAULETTE FongP Ot E11.9 TYPE 2 DIABETES MELLITUS WITHOUT COMPLIC 09/04/2018 PAULETTE KAPLANP Ot F20.9 SCHIZOPHRENIA, UNSPECIFIED 09/04/2018 EUSEBIO, PAULETTE AUSTINP Ot F31.9 BIPOLAR DISORDER, UNSPECIFIED 09/04/2018 EUSEBIOPAULETTE FongP Ot R07.81 PLEURODYNIA 09/04/2018 PAULETTE KAPLANP Ot S22.42XA MULTIPLE FRACTURES OF RIBS, LEFT SIDE, I 09/04/2018 PAULETTE KAPLANP Ot W10.8XXA FALL (ON) (FROM) OTHER STAIRS AND STEPS, 09/04/2018 PAULETTE KAPLANP Ot Z88.8 ALLERGY STATUS TO [facility] DRUG/MEDS/BIOL SUB 09/04/2018 EUSEBIO PAULETTE RATINGS ANALYST Ot 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) 09/04/2018 PAULETTE KAPLANP Ot Z91.040 LATEX ALLERGY STATUS 09/06/2018 PAULETTE KAPLANP Ot E11.9 TYPE 2 DIABETES MELLITUS WITHOUT COMPLIC 09/06/2018 EUSEBIO, PAULETTE AUSTINP Ot F20.9 SCHIZOPHRENIA, UNSPECIFIED 09/06/2018 EUSEBIO, PAULETTE AUSTINP Ot F31.9 BIPOLAR DISORDER, UNSPECIFIED 09/06/2018 PAULETTE KAPLANP Ot R07.81 PLEURODYNIA 09/06/2018 PAULETTE KAPLANP Ot S22.42XA MULTIPLE FRACTURES OF RIBS, LEFT SIDE, I 09/06/2018 PAULETTE KAPLANP Ot W10.8XXA FALL (ON) (FROM) OTHER STAIRS AND STEPS, 09/06/2018 PAULETTE KAPLANP Ot Z88.8 ALLERGY STATUS TO [facility] DRUG/MEDS/BIOL SUB 09/06/2018 PAULETTE KAPLANP Ot 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) 09/06/2018 PAULETTE KAPLANP Ot Z91.040 LATEX ALLERGY STATUS 09/15/2018 CLAY BRENNAN MD, Ot E11.42 TYPE 2 DIABETES MELLITUS WITH DIABETIC P 09/15/2018 CLAY BRENNAN MD, Ot E11.621 TYPE 2 DIABETES MELLITUS WITH FOOT ULCER 09/15/2018 CLAY BRENNAN MD, Ot F20 .9 SCHIZOPHRENIA, UNSPECIFIED 09/15/2018 CLAY BRENNAN MD, Ot L97.514 NON-PRS CHRONIC ULCER OTH PRT RIGHT FOOT 09/15/2018 CLAY BRENNAN MD, Ot M86.271 SUBACUTE OSTEOMYELITIS, RIGHT ANKLE AND 09/15/2018 CLAY BRENNAN MD Ot E11.42 TYPE 2 DIABETES MELLITUS WITH DIABETIC P 09/15/2018 CLAY BRENNAN MD, Ot E11.621 TYPE 2 DIABETES MELLITUS WITH FOOT ULCER 09/15/2018 CLAY BRENNAN MD, Ot L97.514 NON-PRS CHRONIC ULCER OTH PRT RIGHT FOOT 09/15/2018 CLAY BRENNAN MD, Ot E11.42 TYPE 2 DIABETES MELLITUS WITH DIABETIC P 09/15/2018 CLAY BRENNAN MD, Ot E11.621 TYPE 2 DIABETES MELLITUS WITH FOOT ULCER 09/15/2018 CLAY BRENNAN MD, Ot F20 .9 SCHIZOPHRENIA, UNSPECIFIED 09/15/2018 CLAY BRENNAN MD, Ot L97.512 NON-PRS CHRONIC ULCER OTH PRT RIGHT FOOT 09/15/2018 CLAY BRENNAN MD, Ot L97.514 NON-PRS CHRONIC ULCER OTH PRT RIGHT FOOT 09/15/2018 CLAY BRENNAN MD, Ot M86.271 SUBACUTE OSTEOMYELITIS, RIGHT ANKLE AND 09/15/2018 CLAY BRENNAN MD, Ot E11.42 TYPE 2 DIABETES MELLITUS WITH DIABETIC P 09/15/2018 CLAY BRENNAN MD Ot E11.621 TYPE 2 DIABETES MELLITUS WITH FOOT ULCER 09/15/2018 CLAY BRENNAN MD Ot F20 .9 SCHIZOPHRENIA, UNSPECIFIED 09/15/2018 CLAY BRENNAN MD, Ot L97.512 NON-PRS CHRONIC ULCER OTH PRT RIGHT FOOT 09/15/2018 CLAY BRENNAN MD Ot L97.514 NON-PRS CHRONIC ULCER OTH PRT RIGHT FOOT 09/15/2018 CLAY BRENNAN MD Ot M86.271 SUBACUTE OSTEOMYELITIS, RIGHT ANKLE AND 09/15/2018 CLAY BRENNAN MD Ot E11.42 TYPE 2 DIABETES MELLITUS WITH DIABETIC P 09/15/2018 CLAY BRENNAN MD, Ot E11.621 TYPE 2 DIABETES MELLITUS WITH FOOT ULCER 09/15/2018 CLAY BRENNAN MD, Ot F20 .9 SCHIZOPHRENIA, UNSPECIFIED 09/15/2018 CLAY BRENNAN MD Ot L97.512 NON-PRS CHRONIC ULCER OTH PRT RIGHT FOOT 09/15/2018 CLAY BRENNAN MD Ot L97.514 NON-PRS CHRONIC ULCER OTH PRT RIGHT FOOT 09/15/2018 CLAY BRENNAN MD Ot M86.271 SUBACUTE OSTEOMYELITIS, RIGHT ANKLE AND 09/15/2018 CLAY BRENNAN MD Ot E11.42 TYPE 2 DIABETES MELLITUS WITH DIABETIC P 09/15/2018 CLAY BRENNAN MD Ot E11.621 TYPE 2 DIABETES MELLITUS WITH FOOT ULCER 09/15/2018 CLAY BRENNAN MD Ot F20 .9 SCHIZOPHRENIA, UNSPECIFIED 09/15/2018 CLAY BRENNAN MD Ot L97.512 NON-PRS CHRONIC ULCER OTH PRT RIGHT FOOT 09/15/2018 CLAY BRENNAN MD Ot M86.271 SUBACUTE OSTEOMYELITIS, RIGHT ANKLE AND 09/15/2018 CLAY BRENNAN MD Ot E11.42 TYPE 2 DIABETES MELLITUS WITH DIABETIC P 09/15/2018 CLAY BRENNAN MD Ot E11.621 TYPE 2 DIABETES MELLITUS WITH FOOT ULCER 09/15/2018 CLAY BRENNAN MD Ot F20 .9 SCHIZOPHRENIA, UNSPECIFIED 09/15/2018 CLAY BRENNAN MD Ot L97.512 NON-PRS CHRONIC ULCER OTH PRT RIGHT FOOT 09/15/2018 CLAY BRENNAN MD Ot M86.271 SUBACUTE OSTEOMYELITIS, RIGHT ANKLE AND 09/17/2018 EDWARDS DO, ISAK Ot D64.9 ANEMIA, UNSPECIFIED 09/17/2018 EDWARDS DO, ISAK Ot E87.1 HYPO-OSMOLALITY AND HYPONATREMIA 09/17/2018 EDWARDS DO, ISAK Ot F17.21 0 NICOTINE DEPENDENCE, CIGARETTES, UNCOMPL 09/17/2018 EDWARDS DO, ISAK Ot F20.9 SCHIZOPHRENIA, UNSPECIFIED 09/17/2018 EDWARDS DO ISAK Ot F31.9 BIPOLAR DISORDER, UNSPECIFIED 09/17/2018 EDWARDS DO, ISAK Ot I10 ESSENTIAL (PRIMARY) HYPERTENSION 09/17/2018 EDWARDS DO, ISAK Ot I95.9 HYPOTENSION, UNSPECIFIED 09/17/2018 EDWARDS DO, ISAK Ot J96.00 ACUTE RESPIRATORY FAILURE, UNSP W HYPOXI 09/17/2018 EDWARDS DO ISAK Ot T40.2X 2A POISONING BY OTH OPIOIDS, INTENTIONAL SE 09/17/2018 EDWARDS DO ISAK Ot T40.7X 2A POISONING BY CANNABIS (DERIVATIVES), CASSIUS 09/17/2018 JERRY JUAREZ ISAK Ot T43.01 2A POISONING BY TRICYCLIC ANTIDEPRESSANTS, 09/17/2018 EDWARDS DO ISAK Ot T43.62 2A POISONING BY AMPHETAMINES, INTENTIONAL S 09/17/2018 EDWARDS DO ISAK Ot Z89.42 1 ACQUIRED ABSENCE OF OTHER RIGHT TOE(S) 09/18/2018 EDWARDS DO, ISAK Ot D64.9 ANEMIA, UNSPECIFIED 09/18/2018 EDWARDS DO, ISAK Ot E87.1 HYPO-OSMOLALITY AND HYPONATREMIA 09/18/2018 EDWARDS DO ISAK Ot F17.21 0 NICOTINE DEPENDENCE, CIGARETTES, UNCOMPL 09/18/2018 EDWARDS DO ISAK Ot F20.9 SCHIZOPHRENIA, UNSPECIFIED 09/18/2018 EDWARDS DO, ISAK Ot F31.9 BIPOLAR DISORDER, UNSPECIFIED 09/18/2018 EDWARDS DO, ISAK Ot I10 ESSENTIAL (PRIMARY) HYPERTENSION 09/18/2018 EDWARDS DO, ISAK Ot I95.9 HYPOTENSION, UNSPECIFIED 09/18/2018 EDWARDS DO, ISAK Ot J96.00 ACUTE RESPIRATORY FAILURE, UNSP W HYPOXI 09/18/2018 EDWARDS DO ISAK Ot T40.2X 2A POISONING BY OTH OPIOIDS, INTENTIONAL SE 09/18/2018 EDWARDS DO ISAK Ot T40.7X 2A POISONING BY CANNABIS (DERIVATIVES), CASSIUS 09/18/2018 EDWARDS DO, ISAK Ot T43.01 2A POISONING BY TRICYCLIC ANTIDEPRESSANTS, 09/18/2018 EDWARDS DO ISAK Ot T43.62 2A POISONING BY AMPHETAMINES, INTENTIONAL S 09/18/2018 EDWARDS DO ISAK Ot Z89.42 1 ACQUIRED ABSENCE OF OTHER RIGHT TOE(S) 09/18/2018 EDWARDS DO ISAK Ot D64.9 ANEMIA, UNSPECIFIED 09/18/2018 EDWARDS DO ISAK Ot E87.1 HYPO-OSMOLALITY AND HYPONATREMIA 09/18/2018 EDWARDS DO ISAK Ot F17.21 0 NICOTINE DEPENDENCE, CIGARETTES, UNCOMPL 09/18/2018 EDWARDS DO ISAK Ot F20.9 SCHIZOPHRENIA, UNSPECIFIED 09/18/2018 EDWARDS DO ISAK Ot F31.9 BIPOLAR DISORDER, UNSPECIFIED 09/18/2018 EDWARDS DO ISAK Ot I10 ESSENTIAL (PRIMARY) HYPERTENSION 09/18/2018 EDAWRDS DO ISAK Ot I95.9 HYPOTENSION, UNSPECIFIED 09/18/2018 EDWARDS DO ISAK Ot J96.00 ACUTE RESPIRATORY FAILURE, UNSP W HYPOXI 09/18/2018 EDWARDSMAGALI JUAREZ ISAK Ot T40.2X 2A POISONING BY OTH OPIOIDS, INTENTIONAL SE 09/18/2018 EDWARDS DO ISAK Ot T40.7X 2A POISONING BY CANNABIS (DERIVATIVES), CASSIUS 09/18/2018 EDWARDS DO ISAK Ot T43.01 2A POISONING BY TRICYCLIC ANTIDEPRESSANTS, 09/18/2018 EDWARDS DO ISAK Ot T43.62 2A POISONING BY AMPHETAMINES, INTENTIONAL S 09/18/2018 JERRY JUAREZ ISAK Ot Z89.42 1 ACQUIRED ABSENCE OF OTHER RIGHT TOE(S) 01/06/2019 CLAY BRENNAN MD Ot E11.42 TYPE 2 DIABETES MELLITUS WITH DIABETIC P 01/06/2019 CLAY BRENNAN MD Ot E11.621 TYPE 2 DIABETES MELLITUS WITH FOOT ULCER 01/06/2019 CLAY BRENNAN MD, Ot F20 .9 SCHIZOPHRENIA, UNSPECIFIED 01/06/2019 CLAY BRENNAN MD, Ot L97.514 NON-PRS CHRONIC ULCER OTH PRT RIGHT FOOT 01/06/2019 CLAY BRENNAN MD Ot M86.271 SUBACUTE OSTEOMYELITIS, RIGHT ANKLE AND 01/06/2019 ANU MD, CLAY G Ot E11.42 TYPE 2 DIABETES MELLITUS WITH DIABETIC P 01/06/2019 CLAY BRENNAN MD Ot E11.621 TYPE 2 DIABETES MELLITUS WITH FOOT ULCER 01/06/2019 CLAY BRENNAN MD, Ot L97.514 NON-PRS CHRONIC ULCER OTH PRT RIGHT FOOT 01/06/2019 CLAY BRENNAN MD Ot E11.42 TYPE 2 DIABETES MELLITUS WITH DIABETIC P 01/06/2019 CLAY BRENNAN MD Ot E11.621 TYPE 2 DIABETES MELLITUS WITH FOOT ULCER 01/06/2019 CLAY BRENNAN MD Ot F20 .9 SCHIZOPHRENIA, UNSPECIFIED 01/06/2019 CLAY BRENNAN MD Ot L97.512 NON-PRS CHRONIC ULCER OTH PRT RIGHT FOOT 01/06/2019 CLAY BRENNAN MD, Ot L97.514 NON-PRS CHRONIC ULCER OTH PRT RIGHT FOOT 01/06/2019 CLAY BRENNAN MD Ot M86.271 SUBACUTE OSTEOMYELITIS, RIGHT ANKLE AND 01/06/2019 CLAY BRENNAN MD Ot E11.42 TYPE 2 DIABETES MELLITUS WITH DIABETIC P 01/06/2019 CLAY BRENNAN MD Ot E11.621 TYPE 2 DIABETES MELLITUS WITH FOOT ULCER 01/06/2019 CLAY BRENNAN MD Ot F20 .9 SCHIZOPHRENIA, UNSPECIFIED 01/06/2019 CLAY BRENNAN MD Ot L97.512 NON-PRS CHRONIC ULCER OTH PRT RIGHT FOOT 01/06/2019 CLAY BRENNAN MD Ot L97.514 NON-PRS CHRONIC ULCER OTH PRT RIGHT FOOT 01/06/2019 CLAY BRENNAN MD Ot M86.271 SUBACUTE OSTEOMYELITIS, RIGHT ANKLE AND 01/06/2019 CLAY BRENNAN MD Ot E11.42 TYPE 2 DIABETES MELLITUS WITH DIABETIC P 01/06/2019 CLAY BRENNAN MD Ot E11.621 TYPE 2 DIABETES MELLITUS WITH FOOT ULCER 01/06/2019 CLAY BRENNAN MD Ot F20 .9 SCHIZOPHRENIA, UNSPECIFIED 01/06/2019 CLAY BRENNAN MD Ot L97.512 NON-PRS CHRONIC ULCER OTH PRT RIGHT FOOT 01/06/2019 CLAY BRENNAN MD Ot L97.514 NON-PRS CHRONIC ULCER OTH PRT RIGHT FOOT 01/06/2019 CLAY BRENNAN MD Ot M86.271 SUBACUTE OSTEOMYELITIS, RIGHT ANKLE AND 01/06/2019 CLAY BRENNAN MD Ot E11.42 TYPE 2 DIABETES MELLITUS WITH DIABETIC P 01/06/2019 CLAY BRENNAN MD Ot E11.621 TYPE 2 DIABETES MELLITUS WITH FOOT ULCER 01/06/2019 CLAY BRENNAN MD Ot F20 .9 SCHIZOPHRENIA, UNSPECIFIED 01/06/2019 CLAY BRENNAN MD Ot L97.512 NON-PRS CHRONIC ULCER OTH PRT RIGHT FOOT 01/06/2019 CLAY BRENNAN MD Ot M86.271 SUBACUTE OSTEOMYELITIS, RIGHT ANKLE AND 01/06/2019 CLAY BRENNAN MD Ot E11.42 TYPE 2 DIABETES MELLITUS WITH DIABETIC P 01/06/2019 CLAY BRENNAN MD Ot E11.621 TYPE 2 DIABETES MELLITUS WITH FOOT ULCER 01/06/2019 CLAY BRENNAN MD, Ot F20 .9 SCHIZOPHRENIA, UNSPECIFIED 01/06/2019 CLAY BRENNAN MD Ot L97.512 NON-PRS CHRONIC ULCER OTH PRT RIGHT FOOT 01/06/2019 CLAY BRENNAN MD Ot M86.271 SUBACUTE OSTEOMYELITIS, RIGHT ANKLE AND 01/26/2019 CLAY BRENNAN MD Ot E11.42 TYPE 2 DIABETES MELLITUS WITH DIABETIC P 01/26/2019 CLAY BRENNAN MD Ot E11.621 TYPE 2 DIABETES MELLITUS WITH FOOT ULCER 01/26/2019 CLAY BRENNAN MD Ot F20 .9 SCHIZOPHRENIA, UNSPECIFIED 01/26/2019 CLAY BRENNAN MD Ot L97.514 NON-PRS CHRONIC ULCER OTH PRT RIGHT FOOT 01/26/2019 CLAY BRENNAN MD Ot M86.271 SUBACUTE OSTEOMYELITIS, RIGHT ANKLE AND 01/26/2019 CLAY BRENNAN MD Ot E11.42 TYPE 2 DIABETES MELLITUS WITH DIABETIC P 01/26/2019 CLAY BRENNAN MD Ot E11.621 TYPE 2 DIABETES MELLITUS WITH FOOT ULCER 01/26/2019 CLAY BRENNAN MD Ot L97.514 NON-PRS CHRONIC ULCER OTH PRT RIGHT FOOT 01/26/2019 CLAY BRENNAN MD Ot E11.42 TYPE 2 DIABETES MELLITUS WITH DIABETIC P 01/26/2019 CLAY BRENNAN MD Ot E11.621 TYPE 2 DIABETES MELLITUS WITH FOOT ULCER 01/26/2019 CLAY BRENNAN MD Ot F20 .9 SCHIZOPHRENIA, UNSPECIFIED 01/26/2019 CLAY BRENNAN MD Ot L97.512 NON-PRS CHRONIC ULCER OTH PRT RIGHT FOOT 01/26/2019 CLAY BRENNAN MD Ot L97.514 NON-PRS CHRONIC ULCER OTH PRT RIGHT FOOT 01/26/2019 CLAY BRENNAN MD Ot M86.271 SUBACUTE OSTEOMYELITIS, RIGHT ANKLE AND 01/26/2019 CLAY BRENNAN MD Ot E11.42 TYPE 2 DIABETES MELLITUS WITH DIABETIC P 01/26/2019 CLAY BRENNAN MD Ot E11.621 TYPE 2 DIABETES MELLITUS WITH FOOT ULCER 01/26/2019 CLAY BRENNAN MD Ot F20 .9 SCHIZOPHRENIA, UNSPECIFIED 01/26/2019 CLAY BRENNAN MD Ot L97.512 NON-PRS CHRONIC ULCER OTH PRT RIGHT FOOT 01/26/2019 CLAY BRENNAN MD Ot L97.514 NON-PRS CHRONIC ULCER OTH PRT RIGHT FOOT 01/26/2019 CLAY BRENNAN MD, Ot M86.271 SUBACUTE OSTEOMYELITIS, RIGHT ANKLE AND 01/26/2019 CLAY BRENNAN MD Ot E11.42 TYPE 2 DIABETES MELLITUS WITH DIABETIC P 01/26/2019 CLAY BRENNAN MD, Ot E11.621 TYPE 2 DIABETES MELLITUS WITH FOOT ULCER 01/26/2019 CLAY BRENNAN MD Ot F20 .9 SCHIZOPHRENIA, UNSPECIFIED 01/26/2019 CLAY BRENNAN MD Ot L97.512 NON-PRS CHRONIC ULCER OTH PRT RIGHT FOOT 01/26/2019 CLAY BRENNAN MD Ot L97.514 NON-PRS CHRONIC ULCER OTH PRT RIGHT FOOT 01/26/2019 CLAY BRENNAN MD Ot M86.271 SUBACUTE OSTEOMYELITIS, RIGHT ANKLE AND 01/26/2019 CLAY BRENNAN MD Ot E11.42 TYPE 2 DIABETES MELLITUS WITH DIABETIC P 01/26/2019 CLAY BRENNAN MD Ot E11.621 TYPE 2 DIABETES MELLITUS WITH FOOT ULCER 01/26/2019 CLAY BRENNAN MD Ot F20 .9 SCHIZOPHRENIA, UNSPECIFIED 01/26/2019 CLAY BRENNAN MD Ot L97.512 NON-PRS CHRONIC ULCER OTH PRT RIGHT FOOT 01/26/2019 CLAY BRENNAN MD Ot M86.271 SUBACUTE OSTEOMYELITIS, RIGHT ANKLE AND 01/26/2019 CLAY BRENNAN MD Ot E11.42 TYPE 2 DIABETES MELLITUS WITH DIABETIC P 01/26/2019 CLAY BRENNAN MD Ot E11.621 TYPE 2 DIABETES MELLITUS WITH FOOT ULCER 01/26/2019 CLAY BRENNAN MD Ot F20 .9 SCHIZOPHRENIA, UNSPECIFIED 01/26/2019 ANU HERNANDEZ, CLAY Zapata Ot L97.512 NON-PRS CHRONIC ULCER OTH PRT RIGHT FOOT 01/26/2019 ANU HERNANDEZ, CLAY Zapata Ot M86.271 SUBACUTE OSTEOMYELITIS, RIGHT ANKLE AND 01/28/2019 EDWARDS DO, ISAK Ot E11.42 TYPE 2 DIABETES MELLITUS WITH DIABETIC P 01/28/2019 EDWARDS DO, ISAK Ot E11.52 TYPE 2 DIABETES W DIABETIC PERIPHERAL AN 01/28/2019 EDWARDS DO, ISAK Ot E11.62 1 TYPE 2 DIABETES MELLITUS WITH FOOT ULCER 01/28/2019 EDWARDS DO, ISAK Ot F17.21 0 NICOTINE DEPENDENCE, CIGARETTES, UNCOMPL 01/28/2019 EDWARDS DO, ISAK Ot F20.9 SCHIZOPHRENIA, UNSPECIFIED 01/28/2019 EDWARDS DO, ISAK Ot F31.9 BIPOLAR DISORDER, UNSPECIFIED 01/28/2019 EDWARDS DO, ISAK Ot I10 ESSENTIAL (PRIMARY) HYPERTENSION 01/28/2019 EDWARDS DO, ISAK Ot I96 GANGRENE, NOT ELSEWHERE CLASSIFIED 01/28/2019 EDWARDS DO, ISAK Ot L03.03 1 CELLULITIS OF RIGHT TOE 01/28/2019 EDWARDS DO, ISAK Ot L03.11 5 CELLULITIS OF RIGHT LOWER LIMB 01/28/2019 EDWARDS DO, ISAK Ot L97.51 4 NON-PRS CHRONIC ULCER OTH PRT RIGHT FOOT 01/28/2019 EDWARDS DO, ISAK Ot R46.89 OTHER SYMPTOMS AND SIGNS INVOLVING APPEA 01/28/2019 EDWARDS DO, ISAK Ot Z89.42 1 ACQUIRED ABSENCE OF OTHER RIGHT TOE(S) 01/28/2019 EDWARDS DO, ISAK Ot Z91.19 PATIENT'S NONCOMPLIANCE W OT MEDICAL TR 01/28/2019 EDWARDS DO, ISAK Ot Z91.5 PERSONAL HISTORY OF SELF-HARM 02/15/2019 CLARISSE HERNANDEZ, KEVIN Avila Ot E11.621 TYPE 2 DIABETES MELLITUS WITH FOOT ULCER 02/15/2019 CLARISSE HERNANDEZ, KEVIN Avila Ot F20. 9 SCHIZOPHRENIA, UNSPECIFIED 02/15/2019 KEVIN ROBB MD Ot F31. 9 BIPOLAR DISORDER, UNSPECIFIED 02/15/2019 KEVIN ROBB MD Ot F91. 8 OTHER CONDUCT DISORDERS 02/15/2019 KEVIN ROBB MD Ot I10 ESSENTIAL (PRIMARY) HYPERTENSION 02/15/2019 KEVIN ROBB MD Ot L97.509 NON-PRESSURE CHRONIC ULCER OTH PRT UNSP 02/15/2019 KEVIN ROBB MD Ot R31. 0 GROSS HEMATURIA 02/15/2019 KEVIN ROBB MD Ot Z88. 8 ALLERGY STATUS TO OTH DRUG/MEDS/BIOL SUB 02/15/2019 KEVIN ROBB MD Ot Z89.411 ACQUIRED ABSENCE OF RIGHT GREAT TOE 02/15/2019 KEVIN ROBB MD Ot 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) 02/15/2019 KEVIN ROBB MD Ot Z91.040 LATEX ALLERGY STATUS 02/15/2019 KEVIN ROBB MD Ot Z91. 14 PATIENT'S OTHER NONCOMPLIANCE WITH MEDIC 02/15/2019 KEVIN ROBB MD Ot Z91. 5 PERSONAL HISTORY OF SELF-HARM 02/18/2019 KEVIN ROBB MD Ot E11.621 TYPE 2 DIABETES MELLITUS WITH FOOT ULCER 02/18/2019 KEVIN ROBB MD Ot F20. 9 SCHIZOPHRENIA, UNSPECIFIED 02/18/2019 KEVIN ROBB MD Ot F31. 9 BIPOLAR DISORDER, UNSPECIFIED 02/18/2019 KEVIN ROBB MD Ot F91. 8 OTHER CONDUCT DISORDERS 02/18/2019 KEVIN ROBB MD Ot I10 ESSENTIAL (PRIMARY) HYPERTENSION 02/18/2019 KEVIN ROBB MD Ot L97.509 NON-PRESSURE CHRONIC ULCER OTH PRT UNSP 02/18/2019 KEVIN ROBB MD Ot R31. 0 GROSS HEMATURIA 02/18/2019 KEVIN ROBB MD Ot Z88. 8 ALLERGY STATUS TO OTH DRUG/MEDS/BIOL SUB 02/18/2019 KEVIN ROBB MD Ot Z89.411 ACQUIRED ABSENCE OF RIGHT GREAT TOE 02/18/2019 KEVIN ROBB MD Ot 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) 02/18/2019 KEVIN ROBB MD Ot Z91.040 LATEX ALLERGY STATUS 02/18/2019 KEVIN ROBB MD Ot Z91. 14 PATIENT'S OTHER NONCOMPLIANCE WITH MEDIC 02/18/2019 KEVIN ROBB MD Ot Z91. 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, IN REMISSION 03/30/2019 EDWARDS DO, ISAK Ot F17.21 0 NICOTINE DEPENDENCE, CIGARETTES, UNCOMPL 03/30/2019 EDWARDS DO, ISAK Ot F20.9 SCHIZOPHRENIA, UNSPECIFIED 03/30/2019 EDWARDS DO, ISAK Ot F31.9 BIPOLAR DISORDER, UNSPECIFIED 03/30/2019 EDWARDS DO, ISAK Ot I10 ESSENTIAL (PRIMARY) HYPERTENSION 03/30/2019 EDWARDS DO, ISAK Ot K56.7 ILEUS, UNSPECIFIED 03/30/2019 EDWARDS DO, ISAK Ot K59.00 CONSTIPATION, UNSPECIFIED 03/30/2019 EDWARDS DO, ISAK Ot K85.90 ACUTE PANCREATITIS WITHOUT NECROSIS OR I 03/30/2019 EDWARDS DO ISAK Ot N39.0 URINARY TRACT INFECTION, SITE NOT SPECIF 03/30/2019 EDWARDS DO ISAK Ot Z89.41 1 ACQUIRED ABSENCE OF RIGHT GREAT TOE 03/30/2019 JERRY JUAREZ ISAK Ot Z89.42 1 ACQUIRED ABSENCE OF OTHER RIGHT TOE(S) 04/29/2019 CLAY BRENNAN MD Ot E11.42 TYPE 2 DIABETES MELLITUS WITH DIABETIC P 04/29/2019 CLAY BRENNAN MD, Ot E11.621 TYPE 2 DIABETES MELLITUS WITH FOOT ULCER 04/29/2019 CLAY BRENNAN MD, Ot F20 .9 SCHIZOPHRENIA, UNSPECIFIED 04/29/2019 CLAY BRENNAN MD, Ot L97.514 NON-PRS CHRONIC ULCER OTH PRT RIGHT FOOT 04/29/2019 CLAY BRENNAN MD Ot M86.271 SUBACUTE OSTEOMYELITIS, RIGHT ANKLE AND 04/29/2019 CLAY BRENNAN MD, Ot E11.42 TYPE 2 DIABETES MELLITUS WITH DIABETIC P 04/29/2019 CLAY BRENNAN MD, Ot E11.621 TYPE 2 DIABETES MELLITUS WITH FOOT ULCER 04/29/2019 CLAY BRENNAN MD, Ot L97.514 NON-PRS CHRONIC ULCER OTH PRT RIGHT FOOT 04/29/2019 CLAY BRENNAN MD, Ot E11.42 TYPE 2 DIABETES MELLITUS WITH DIABETIC P 04/29/2019 CLAY BRENNAN MD Ot E11.621 TYPE 2 DIABETES MELLITUS WITH FOOT ULCER 04/29/2019 CLAY BRENNAN MD Ot F20 .9 SCHIZOPHRENIA, UNSPECIFIED 04/29/2019 CLAY BRENNAN MD Ot L97.512 NON-PRS CHRONIC ULCER OTH PRT RIGHT FOOT 04/29/2019 CLAY BRENNAN MD Ot L97.514 NON-PRS CHRONIC ULCER OTH PRT RIGHT FOOT 04/29/2019 CLAY BRENNAN MD Ot M86.271 SUBACUTE OSTEOMYELITIS, RIGHT ANKLE AND 04/29/2019 CLAY BRENNAN MD Ot E11.42 TYPE 2 DIABETES MELLITUS WITH DIABETIC P 04/29/2019 CLAY BRENNAN MD, Ot E11.621 TYPE 2 DIABETES MELLITUS WITH FOOT ULCER 04/29/2019 CLAY BRENNAN MD, Ot F20 .9 SCHIZOPHRENIA, UNSPECIFIED 04/29/2019 CLAY BRENNAN MD Ot L97.512 NON-PRS CHRONIC ULCER OTH PRT RIGHT FOOT 04/29/2019 CLAY BRENNAN MD Ot L97.514 NON-PRS CHRONIC ULCER OTH PRT RIGHT FOOT 04/29/2019 CLAY BRENNAN MD Ot M86.271 SUBACUTE OSTEOMYELITIS, RIGHT ANKLE AND 04/29/2019 CLAY BRENNAN MD Ot E11.42 TYPE 2 DIABETES MELLITUS WITH DIABETIC P 04/29/2019 CLAY BRENNAN MD Ot E11.621 TYPE 2 DIABETES MELLITUS WITH FOOT ULCER 04/29/2019 CLAY BRENNAN MD Ot F20 .9 SCHIZOPHRENIA, UNSPECIFIED 04/29/2019 CLAY BRENNAN MD Ot L97.512 NON-PRS CHRONIC ULCER OTH PRT RIGHT FOOT 04/29/2019 CLAY BRENNAN MD Ot L97.514 NON-PRS CHRONIC ULCER OTH PRT RIGHT FOOT 04/29/2019 CLAY BRENNAN MD Ot M86.271 SUBACUTE OSTEOMYELITIS, RIGHT ANKLE AND 04/29/2019 CLAY BRENNAN MD Ot E11.42 TYPE 2 DIABETES MELLITUS WITH DIABETIC P 04/29/2019 CLAY BRENNAN MD Ot E11.621 TYPE 2 DIABETES MELLITUS WITH FOOT ULCER 04/29/2019 CLAY BRENNAN MD Ot F20 .9 SCHIZOPHRENIA, UNSPECIFIED 04/29/2019 CLAY BRENNAN MD Ot L97.512 NON-PRS CHRONIC ULCER OTH PRT RIGHT FOOT 04/29/2019 CLAY BRENNAN MD Ot M86.271 SUBACUTE OSTEOMYELITIS, RIGHT ANKLE AND 04/29/2019 CLAY BRENNAN MD Ot E11.42 TYPE 2 DIABETES MELLITUS WITH DIABETIC P 04/29/2019 CLAY BRENNAN MD, Ot E11.621 TYPE 2 DIABETES MELLITUS WITH FOOT ULCER 04/29/2019 CLAY BRENNAN MD Ot F20 .9 SCHIZOPHRENIA, UNSPECIFIED 04/29/2019 CLAY BRENNAN MD, Ot L97.512 NON-PRS CHRONIC ULCER OTH PRT RIGHT FOOT 04/29/2019 CLAY BRENNAN MD, Ot M86.271 SUBACUTE OSTEOMYELITIS, RIGHT ANKLE AND 05/12/2019 CLAY BRENNAN MD Ot E11.42 TYPE 2 DIABETES MELLITUS WITH DIABETIC P 05/12/2019 CLAY BRENNAN MD Ot E11.52 TYPE 2 DIABETES W DIABETIC PERIPHERAL AN 05/12/2019 CLAY BRENNAN MD, Ot E11.621 TYPE 2 DIABETES MELLITUS WITH FOOT ULCER 05/12/2019 CLAY BRENNAN MD, Ot F20 .9 SCHIZOPHRENIA, UNSPECIFIED 05/12/2019 CLAY BRENNAN MD Ot I96 GANGRENE, NOT ELSEWHERE CLASSIFIED 05/12/2019 CLAY BRENNAN MD Ot L97.512 NON-PRS CHRONIC ULCER OTH PRT RIGHT FOOT 05/12/2019 CLAY BRENNAN MD Ot E11.42 TYPE 2 DIABETES MELLITUS WITH DIABETIC P 05/12/2019 CLAY BRENNAN MD Ot E11.621 TYPE 2 DIABETES MELLITUS WITH FOOT ULCER 05/12/2019 CLAY BRENNAN MD Ot F20 .9 SCHIZOPHRENIA, UNSPECIFIED 05/12/2019 CLAY BRENNAN MD Ot L97.512 NON-PRS CHRONIC ULCER OTH PRT RIGHT FOOT 05/13/2019 CLAY BRENNAN MD Ot E11.42 TYPE 2 DIABETES MELLITUS WITH DIABETIC P 05/13/2019 CLAY BRENNAN MD Ot E11.52 TYPE 2 DIABETES W DIABETIC PERIPHERAL AN 05/13/2019 CLAY BRENNAN MD Ot E11.621 TYPE 2 DIABETES MELLITUS WITH FOOT ULCER 05/13/2019 CLAY BRENNAN MD, Ot F20 .9 SCHIZOPHRENIA, UNSPECIFIED 05/13/2019 CLAY BRENNAN MD Ot I96 GANGRENE, NOT ELSEWHERE CLASSIFIED 05/13/2019 CLAY BRENNAN MD Ot L97.512 NON-PRS CHRONIC ULCER OTH PRT RIGHT FOOT 05/15/2019 CLAY BRENNAN MD Ot E11.42 TYPE 2 DIABETES MELLITUS WITH DIABETIC P 05/15/2019 CLAY BRENNAN MD Ot E11.52 TYPE 2 DIABETES W DIABETIC PERIPHERAL AN 05/15/2019 CLAY BRENNAN MD Ot E11.621 TYPE 2 DIABETES MELLITUS WITH FOOT ULCER 05/15/2019 CLAY BRENNAN MD Ot F20 .9 SCHIZOPHRENIA, UNSPECIFIED 05/15/2019 CLAY BRENNAN MD Ot I96 GANGRENE, NOT ELSEWHERE CLASSIFIED 05/15/2019 CLAY BRENNAN MD Ot L97.512 NON-PRS CHRONIC ULCER OTH PRT RIGHT FOOT 05/18/2019 YONATAN LUCIO MD Ot E11.42 TYPE 2 DIABETES MELLITUS WITH DIABETIC P 05/18/2019 KHADIJAH HERNANDEZ, YONATAN Matserson Ot E11.621 TYPE 2 DIABETES MELLITUS WITH FOOT ULCER 05/18/2019 YONATAN LUCIO MD A Ot F20.9 SCHIZOPHRENIA, UNSPECIFIED 05/18/2019 KHADIJAH HERNANDEZ, YONATAN A Ot L97.512 NON-PRS CHRONIC ULCER OTH PRT RIGHT FOOT 05/18/2019 YONATAN LUCIO MD Ot E11.42 TYPE 2 DIABETES MELLITUS WITH DIABETIC P 05/18/2019 KHADIJAH HERNANDEZ, YONATAN Masterson Ot E11.621 TYPE 2 DIABETES MELLITUS WITH FOOT ULCER 05/18/2019 YONATAN LUCIO MD Ot F20.9 SCHIZOPHRENIA, UNSPECIFIED 05/18/2019 KHADIJAH HERNANDEZ, YONATAN A Ot L97.512 NON-PRS CHRONIC ULCER OTH PRT RIGHT FOOT 06/02/2019 CLAY BRENNAN MD Ot E11.42 TYPE 2 DIABETES MELLITUS WITH DIABETIC P 06/02/2019 CLAY BRENNAN MD Ot E11.52 TYPE 2 DIABETES W DIABETIC PERIPHERAL AN 06/02/2019 CLAY BRENNAN MD Ot E11.621 TYPE 2 DIABETES MELLITUS WITH FOOT ULCER 06/02/2019 CLAY BRENNAN MD Ot F20 .9 SCHIZOPHRENIA, UNSPECIFIED 06/02/2019 CLAY BRENNAN MD Ot I96 GANGRENE, NOT ELSEWHERE CLASSIFIED 06/02/2019 CLAY BRENNAN MD Ot L97.512 NON-PRS CHRONIC ULCER OTH PRT RIGHT FOOT 06/07/2019 ROQUE BAKER MD, Ot E11.42 TYPE 2 DIABETES MELLITUS WITH DIABETIC P 06/07/2019 ROQUE BAKER MD Ot E11.621 TYPE 2 DIABETES MELLITUS WITH FOOT ULCER 06/07/2019 ORQUE BAKER MD Ot F20.9 SCHIZOPHRENIA, UNSPECIFIED 06/07/2019 SAMUEL HERNANDEZ, KIRTIE Ot I10 ESSENTIAL (PRIMARY) HYPERTENSION 06/07/2019 LINUS BAKER MDTIE Ot L97.512 NON- PRS CHRONIC ULCER OTH PRT RIGHT FOOT 06/07/2019 LINUS BAKER MDTIE Ot E11.42 TYPE 2 DIABETES MELLITUS WITH DIABETIC P 06/07/2019 SAMUEL HERNANDEZ, KIRTIE Ot E11.621 TYPE 2 DIABETES MELLITUS WITH FOOT ULCER 06/07/2019 ROQUE BAKER MD Ot F20.9 SCHIZOPHRENIA, UNSPECIFIED 06/07/2019 SAMUEL HERNANDEZ, KIRTIE Ot I10 ESSENTIAL (PRIMARY) HYPERTENSION 06/07/2019 LINUS BAKER MDTIE Ot L97.512 NON- PRS CHRONIC ULCER OTH PRT RIGHT FOOT 2019 YONATAN LUCIO MD Ot E11.42 TYPE 2 DIABETES MELLITUS WITH DIABETIC P 2019 YONATAN LUCIO MD Ot E11.621 TYPE 2 DIABETES MELLITUS WITH FOOT ULCER 2019 YONATAN LUCIO MD Ot F20.9 SCHIZOPHRENIA, UNSPECIFIED 2019 YONATAN LUCIO MD Ot L97.512 NON-PRS CHRONIC ULCER OTH PRT RIGHT FOOT 06/21/2019 YONATAN LUCIO MD Ot E11.42 TYPE 2 DIABETES MELLITUS WITH DIABETIC P 06/21/2019 YONATAN LUCIO MD Ot E11.621 TYPE 2 DIABETES MELLITUS WITH FOOT ULCER 06/21/2019 YONATAN LUCIO MD Ot F20.9 SCHIZOPHRENIA, UNSPECIFIED 06/21/2019 YONATAN LUCIO MD Ot I 10 ESSENTIAL (PRIMARY) HYPERTENSION 06/21/2019 YONATAN LUCIO MD Ot L97.512 NON-PRS CHRONIC ULCER OTH PRT RIGHT FOOT 06/28/2019 YONATAN LUCIO MD Ot E11.42 TYPE 2 DIABETES MELLITUS WITH DIABETIC P 06/28/2019 YONATAN LUCIO MD Ot E11.52 TYPE 2 DIABETES W DIABETIC PERIPHERAL AN 06/28/2019 YONATAN LUCIO MD Ot E11.621 TYPE 2 DIABETES MELLITUS WITH FOOT ULCER 06/28/2019 YONATAN LUCIO MD Ot F20.9 SCHIZOPHRENIA, UNSPECIFIED 06/28/2019 OYNATAN LUCIO MD Ot I 96 GANGRENE, NOT ELSEWHERE CLASSIFIED 06/28/2019 YONATAN LUCIO MD Ot L97.512 NON-PRS CHRONIC ULCER OTH PRT RIGHT FOOT 06/28/2019 YONATAN LUCIO MD Ot E11.42 TYPE 2 DIABETES MELLITUS WITH DIABETIC P 06/28/2019 KHADIJAH HERNANDEZ YONATAN Masterson Ot E11.621 TYPE 2 DIABETES MELLITUS WITH FOOT ULCER 06/28/2019 KHADIJAH HERNANDEZ, YONATAN Masterson Ot F20.9 SCHIZOPHRENIA, UNSPECIFIED 06/28/2019 KHADIJAH HERNANDEZ, YONATAN Masterson Ot I 10 ESSENTIAL (PRIMARY) HYPERTENSION 06/28/2019 YONATAN LUCIO MD Ot L97.512 NON-PRS CHRONIC ULCER OTH PRT RIGHT FOOT 07/05/2019 ROQUE BAKER MD Ot E11.42 TYPE 2 DIABETES MELLITUS WITH DIABETIC P 07/05/2019 ROQUE BAKER MD Ot E11.621 TYPE 2 DIABETES MELLITUS WITH FOOT ULCER 07/05/2019 ROQUE BAKER MD Ot F20.9 SCHIZOPHRENIA, UNSPECIFIED 07/05/2019 ROQUE BAKER MD Ot I10 ESSENTIAL (PRIMARY) HYPERTENSION 07/05/2019 ROQUE BAKER MD Ot L97.512 NON- PRS CHRONIC ULCER OTH PRT RIGHT FOOT 07/15/2019 CLAY BRENNAN MD Ot E11.42 TYPE 2 DIABETES MELLITUS WITH DIABETIC P 07/15/2019 CLAY BRENNAN MD Ot E11.52 TYPE 2 DIABETES W DIABETIC PERIPHERAL AN 07/15/2019 CLAY BRENNAN MD, Ot E11.621 TYPE 2 DIABETES MELLITUS WITH FOOT ULCER 07/15/2019 CLAY BRENNAN MD Ot F20 .9 SCHIZOPHRENIA, UNSPECIFIED 07/15/2019 CLAY BRENNAN MD Ot I10 ESSENTIAL (PRIMARY) HYPERTENSION 07/15/2019 CLAY BRENNAN MD Ot I70.261 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 07/15/2019 CLAY BRENNAN MD Ot L97.512 NON-PRS CHRONIC ULCER OTH PRT RIGHT FOOT 07/18/2019 CLAY BRENNAN MD Ot E11.42 TYPE 2 DIABETES MELLITUS WITH DIABETIC P 07/18/2019 CLAY BRENNAN MD Ot E11.621 TYPE 2 DIABETES MELLITUS WITH FOOT ULCER 07/18/2019 CLAY BRENNAN MD Ot F20 .9 SCHIZOPHRENIA, UNSPECIFIED 07/18/2019 CLAY BRENNAN MD Ot L97.514 NON-PRS CHRONIC ULCER OTH PRT RIGHT FOOT 07/18/2019 CLAY BRENNAN MD Ot M86.271 SUBACUTE OSTEOMYELITIS, RIGHT ANKLE AND 07/18/2019 CLAY BRENNAN MD Ot E11.42 TYPE 2 DIABETES MELLITUS WITH DIABETIC P 07/18/2019 CLAY BRENNAN MD Ot E11.621 TYPE 2 DIABETES MELLITUS WITH FOOT ULCER 07/18/2019 CLAY BRENNAN MD Ot L97.514 NON-PRS CHRONIC ULCER OTH PRT RIGHT FOOT 07/18/2019 CLAY BRENNAN MD Ot E11.42 TYPE 2 DIABETES MELLITUS WITH DIABETIC P 07/18/2019 ANU HERNANDEZ, CLAY Zapata Ot E11.621 TYPE 2 DIABETES MELLITUS WITH FOOT ULCER 07/18/2019 CLAY BRENNAN MD Ot F20 .9 SCHIZOPHRENIA, UNSPECIFIED 07/18/2019 ANU HERNANDEZ, CLAY Zapata Ot L97.512 NON-PRS CHRONIC ULCER OTH PRT RIGHT FOOT 07/18/2019 CLAY BRENNAN MD Ot L97.514 NON-PRS CHRONIC ULCER OTH PRT RIGHT FOOT 07/18/2019 CLAY BRENNAN MD Ot M86.271 SUBACUTE OSTEOMYELITIS, RIGHT ANKLE AND 07/18/2019 CLAY BRENNAN MD Ot E11.42 TYPE 2 DIABETES MELLITUS WITH DIABETIC P 07/18/2019 CLAY BRENNAN MD Ot E11.621 TYPE 2 DIABETES MELLITUS WITH FOOT ULCER 07/18/2019 CLAY BRENNAN MD Ot F20 .9 SCHIZOPHRENIA, UNSPECIFIED 07/18/2019 CLAY BRENNAN MD Ot L97.512 NON-PRS CHRONIC ULCER OTH PRT RIGHT FOOT 07/18/2019 CLAY BRENNAN MD Ot L97.514 NON-PRS CHRONIC ULCER OTH PRT RIGHT FOOT 07/18/2019 CLAY BRENNAN MD Ot M86.271 SUBACUTE OSTEOMYELITIS, RIGHT ANKLE AND 07/18/2019 CLAY BRENNAN MD Ot E11.42 TYPE 2 DIABETES MELLITUS WITH DIABETIC P 07/18/2019 CLAY BRENNAN MD Ot E11.621 TYPE 2 DIABETES MELLITUS WITH FOOT ULCER 07/18/2019 CLAY BRENNAN MD Ot F20 .9 SCHIZOPHRENIA, UNSPECIFIED 07/18/2019 CLAY BRENNAN MD Ot L97.512 NON-PRS CHRONIC ULCER OTH PRT RIGHT FOOT 07/18/2019 CLAY BRENNAN MD Ot L97.514 NON-PRS CHRONIC ULCER OTH PRT RIGHT FOOT 07/18/2019 CLAY BRENNAN MD Ot M86.271 SUBACUTE OSTEOMYELITIS, RIGHT ANKLE AND 07/18/2019 CLAY BRENNAN MD Ot E11.42 TYPE 2 DIABETES MELLITUS WITH DIABETIC P 07/18/2019 ANU HERNANDEZ, CLAY Zapata Ot E11.621 TYPE 2 DIABETES MELLITUS WITH FOOT ULCER 07/18/2019 ANU HERNANDEZ, CLAY Zapata Ot F20 .9 SCHIZOPHRENIA, UNSPECIFIED 07/18/2019 ANU HERNANDEZ, CLAY Zapata Ot L97.512 NON-PRS CHRONIC ULCER OTH PRT RIGHT FOOT 07/18/2019 ANU HERNANDEZ, CLAY Zapata Ot M86.271 SUBACUTE OSTEOMYELITIS, RIGHT ANKLE AND 07/18/2019 CLAY BRENNAN MD Ot E11.42 TYPE 2 DIABETES MELLITUS WITH DIABETIC P 07/18/2019 ANU HERNANDEZ, CLAY Zapata Ot E11.621 TYPE 2 DIABETES MELLITUS WITH FOOT ULCER 07/18/2019 ANU HERNANDEZ, CLAY Zapata Ot F20 .9 SCHIZOPHRENIA, UNSPECIFIED 07/18/2019 ANU HERNANDEZ, CLAY Zapata Ot L97.512 NON-PRS CHRONIC ULCER OTH PRT RIGHT FOOT 07/18/2019 ANU HERNANDEZ, CLAY Zapata Ot M86.271 SUBACUTE OSTEOMYELITIS, RIGHT ANKLE AND 07/18/2019 CLAY BRENNAN MD Ot E11.42 TYPE 2 DIABETES MELLITUS WITH DIABETIC P 07/18/2019 CLYA BRENNAN MD Ot E11.52 TYPE 2 DIABETES W DIABETIC PERIPHERAL AN 07/18/2019 ANU HERNANDEZ, CLAY Zapata Ot E11.621 TYPE 2 DIABETES MELLITUS WITH FOOT ULCER 07/18/2019 ANU HERNANDEZ, CLAY Zapata Ot F20 .9 SCHIZOPHRENIA, UNSPECIFIED 07/18/2019 CLAY BRENNAN MD Ot I96 GANGRENE, NOT ELSEWHERE CLASSIFIED 07/18/2019 ANU HERNANDEZ, CLAY Zapata Ot L97.512 NON-PRS CHRONIC ULCER OTH PRT RIGHT FOOT 07/18/2019 ANU HERNANDEZ, CLAY Zapata Ot E11.42 TYPE 2 DIABETES MELLITUS WITH DIABETIC P 07/18/2019 ANU HERNANDEZ, CLAY Zapata Ot E11.621 TYPE 2 DIABETES MELLITUS WITH FOOT ULCER 07/18/2019 CLAY BRENNAN MD Ot F20 .9 SCHIZOPHRENIA, UNSPECIFIED 07/18/2019 ANU HERNANDEZ, CLAY Zapata Ot L97.512 NON-PRS CHRONIC ULCER OTH PRT RIGHT FOOT 07/18/2019 KHADIJAH HERNANDEZ, YONATAN Masterson Ot E11.42 TYPE 2 DIABETES MELLITUS WITH DIABETIC P 07/18/2019 KHADIJAH HERNANDEZ, YONATAN Masterson Ot E11.621 TYPE 2 DIABETES MELLITUS WITH FOOT ULCER 07/18/2019 KHADIJAH HERNANDEZ, YONATAN Masterson Ot F20.9 SCHIZOPHRENIA, UNSPECIFIED 07/18/2019 KHADIJAH HERNANDEZ, YONATAN Masterson Ot L97.512 NON-PRS CHRONIC ULCER OTH PRT RIGHT FOOT 07/18/2019 YONATAN LUCIO MD Ot E11.42 TYPE 2 DIABETES MELLITUS WITH DIABETIC P 07/18/2019 YONATAN LUCIO MD Ot E11.52 TYPE 2 DIABETES W DIABETIC PERIPHERAL AN 07/18/2019 YONATAN LUCIO MD Ot E11.621 TYPE 2 DIABETES MELLITUS WITH FOOT ULCER 07/18/2019 YONATAN LUCIO MD Ot F20.9 SCHIZOPHRENIA, UNSPECIFIED 07/18/2019 YONATAN LUCIO MD Ot I 96 GANGRENE, NOT ELSEWHERE CLASSIFIED 07/18/2019 YONATAN LUCIO MD Ot L97.512 NON-PRS CHRONIC ULCER OTH PRT RIGHT FOOT 07/18/2019 ROQUE BAKER MD Ot E11.42 TYPE 2 DIABETES MELLITUS WITH DIABETIC P 07/18/2019 ROQUE BAKER MD Ot E11.621 TYPE 2 DIABETES MELLITUS WITH FOOT ULCER 07/18/2019 ROQUE BAKER MD Ot F20.9 SCHIZOPHRENIA, UNSPECIFIED 07/18/2019 ROQUE BAKER MD Ot I10 ESSENTIAL (PRIMARY) HYPERTENSION 07/18/2019 ROQUE BAKER MD Ot L97.512 NON- PRS CHRONIC ULCER OTH PRT RIGHT FOOT 07/18/2019 YONATAN LUCIO MD Ot E11.42 TYPE 2 DIABETES MELLITUS WITH DIABETIC P 07/18/2019 YONATAN LUCIO MD Ot E11.621 TYPE 2 DIABETES MELLITUS WITH FOOT ULCER 07/18/2019 YONATAN LUCIO MD Ot F20.9 SCHIZOPHRENIA, UNSPECIFIED 07/18/2019 YONATAN LUCIO MD Ot I 10 ESSENTIAL (PRIMARY) HYPERTENSION 07/18/2019 YONATAN LUCIO MD Ot L97.512 NON-PRS CHRONIC ULCER OTH PRT RIGHT FOOT 07/18/2019 YONATAN LUCIO MD Ot E11.42 TYPE 2 DIABETES MELLITUS WITH DIABETIC P 07/18/2019 YONATAN LUCIO MD Ot E11.621 TYPE 2 DIABETES MELLITUS WITH FOOT ULCER 07/18/2019 YONATAN LUCIO MD Ot F20.9 SCHIZOPHRENIA, UNSPECIFIED 07/18/2019 YONATAN LUCIO MD Ot I 10 ESSENTIAL (PRIMARY) HYPERTENSION 07/18/2019 YONATAN LUCIO MD Ot L97.512 NON-PRS CHRONIC ULCER OTH PRT RIGHT FOOT 07/18/2019 CLAY BRENNAN MD Ot E11.42 TYPE 2 DIABETES MELLITUS WITH DIABETIC P 07/18/2019 CLAY BRENNAN MD Ot E11.52 TYPE 2 DIABETES W DIABETIC PERIPHERAL AN 07/18/2019 CLAY BRENNAN MD Ot E11.621 TYPE 2 DIABETES MELLITUS WITH FOOT ULCER 07/18/2019 CLAY BRENNAN MD Ot F20 .9 SCHIZOPHRENIA, UNSPECIFIED 07/18/2019 CLAY BRENNAN MD Ot I10 ESSENTIAL (PRIMARY) HYPERTENSION 07/18/2019 CLAY BRENNAN MD Ot I70.261 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 07/18/2019 CLAY BRENNAN MD Ot L97.512 NON-PRS CHRONIC ULCER OTH PRT RIGHT FOOT 07/20/2019 ANSELMO LAN MD Ot Z01.81 8 ENCOUNTER FOR OTHER PREPROCEDURAL EXAMIN 07/20/2019 YONATAN LUCIO MD Ot E11.42 TYPE 2 DIABETES MELLITUS WITH DIABETIC P 07/20/2019 KHADIJAH HERNANDEZ, YONATAN Masterson Ot E11.621 TYPE 2 DIABETES MELLITUS WITH FOOT ULCER 07/20/2019 YONATAN LUCIO MD Ot F20.9 SCHIZOPHRENIA, UNSPECIFIED 07/20/2019 YONATAN LUCIO MD Ot I 10 ESSENTIAL (PRIMARY) HYPERTENSION 07/20/2019 YONATAN LUCIO MD Ot L97.512 NON-PRS CHRONIC ULCER OTH PRT RIGHT FOOT 07/20/2019 YONATAN LUCIO MD Ot E11.42 TYPE 2 DIABETES MELLITUS WITH DIABETIC P 07/20/2019 KHADIJAH HERNANDEZ, YONATAN Masterson Ot E11.621 TYPE 2 DIABETES MELLITUS WITH FOOT ULCER 07/20/2019 YONATAN LUCIO MD Ot F20.9 SCHIZOPHRENIA, UNSPECIFIED 07/20/2019 YONATAN LUCIO MD Ot I 10 ESSENTIAL (PRIMARY) HYPERTENSION 07/20/2019 YONATAN LUCIO MD Ot L97.512 NON-PRS CHRONIC ULCER OTH PRT RIGHT FOOT 07/21/2019 ANSELMO LAN MD Ot B19.20 UNSPECIFIED VIRAL HEPATITIS C WITHOUT HE 07/21/2019 ANSELMO LAN MD Ot E11.51 TYPE 2 DIABETES W DIABETIC PERIPHERAL AN 07/21/2019 ANSELMO LAN MD Ot E11.69 TYPE 2 DIABETES MELLITUS WITH OTHER SPEC 07/21/2019 ANSELMO LAN MD Ot F17.21 0 NICOTINE DEPENDENCE, CIGARETTES, UNCOMPL 07/21/2019 ANSELMO LAN MD Ot F20.9 SCHIZOPHRENIA, UNSPECIFIED 07/21/2019 ANSELMO LAN MD Ot F31.9 BIPOLAR DISORDER, UNSPECIFIED 07/21/2019 ANSELMO LAN MD Ot I10 ESSENTIAL (PRIMARY) HYPERTENSION 07/21/2019 ANSELMO LAN MD, Ot J45.90 9 UNSPECIFIED ASTHMA, UNCOMPLICATED 07/21/2019 ANSELMO LAN MD Ot K21.9 GASTRO-ESOPHAGEAL REFLUX DISEASE WITHOUT 07/21/2019 ANSELMO LAN MD Ot M86.9 OSTEOMYELITIS, UNSPECIFIED 07/21/2019 ANSELMO LAN MD Ot Z11.2 ENCOUNTER FOR SCREENING FOR OTHER BACTER 07/21/2019 ANSELMO LAN MD Ot Z79.89 9 OTHER [facility] (CURRENT) DRUG THERAPY 07/21/2019 ANSELMO LAN MD Ot Z91.04 0 LATEX ALLERGY STATUS 07/21/2019 ANSELMO LAN MD Ot Z91.19 PATIENT'S NONCOMPLIANCE W OT MEDICAL TR 07/26/2019 ANSELMO LAN MD, Ot B19.20 UNSPECIFIED VIRAL HEPATITIS C WITHOUT HE 07/26/2019 ANSELMO LAN MD Ot E11.51 TYPE 2 DIABETES W DIABETIC PERIPHERAL AN 07/26/2019 ANSELMO LAN MD Ot E11.69 TYPE 2 DIABETES MELLITUS WITH OTHER SPEC 07/26/2019 ANSELMO LAN MD Ot F17.21 0 NICOTINE DEPENDENCE, CIGARETTES, UNCOMPL 07/26/2019 ANSELMO LAN MD Ot F20.9 SCHIZOPHRENIA, UNSPECIFIED 07/26/2019 ANSELMO LAN MD Ot F31.9 BIPOLAR DISORDER, UNSPECIFIED 07/26/2019 ANSELMO LAN MD Ot I10 ESSENTIAL (PRIMARY) HYPERTENSION 07/26/2019 ANSELMO LAN MD Ot J45.90 9 UNSPECIFIED ASTHMA, UNCOMPLICATED 07/26/2019 ANSELMO LAN MD Ot K21.9 GASTRO-ESOPHAGEAL REFLUX DISEASE WITHOUT 07/26/2019 ANSELMO LAN MD Ot M86.9 OSTEOMYELITIS, UNSPECIFIED 07/26/2019 ANSELMO LAN MD Ot Z11.2 ENCOUNTER FOR SCREENING FOR OTHER BACTER 07/26/2019 ANSELMO LAN MD Ot Z79.89 9 OTHER [employer] (CURRENT) DRUG THERAPY 07/26/2019 ANSELMO LAN MD Ot Z91.04 0 LATEX ALLERGY STATUS 07/26/2019 ANSELMO LAN MD Ot Z91.19 PATIENT'S NONCOMPLIANCE W OT MEDICAL TR 07/31/2019 ANSELMO LAN MD Ot B19.20 UNSPECIFIED VIRAL HEPATITIS C WITHOUT HE 07/31/2019 ANSELMO LAN MD Ot E11.51 TYPE 2 DIABETES W DIABETIC PERIPHERAL AN 07/31/2019 ANSELMO LAN MD Ot E11.69 TYPE 2 DIABETES MELLITUS WITH OTHER SPEC 07/31/2019 ANSELMO LAN MD Ot F17.21 0 NICOTINE DEPENDENCE, CIGARETTES, UNCOMPL 07/31/2019 ANSELMO LAN MD Ot F20.9 SCHIZOPHRENIA, UNSPECIFIED 07/31/2019 ANSELMO LAN MD Ot F31.9 BIPOLAR DISORDER, UNSPECIFIED 07/31/2019 ANSELMO LAN MD Ot I10 ESSENTIAL (PRIMARY) HYPERTENSION 07/31/2019 ANSELMO LAN MD Ot J45.90 9 UNSPECIFIED ASTHMA, UNCOMPLICATED 07/31/2019 ANSELMO LAN MD Ot K21.9 GASTRO-ESOPHAGEAL REFLUX DISEASE WITHOUT 07/31/2019 ANSELMO LAN MD Ot M86.9 OSTEOMYELITIS, UNSPECIFIED 07/31/2019 ANSELMO LAN MD Ot Z11.2 ENCOUNTER FOR SCREENING FOR OTHER BACTER 07/31/2019 ANSELMO LAN MD Ot Z79.89 9 OTHER [facility] (CURRENT) DRUG THERAPY 07/31/2019 ANSELMO LAN MD Ot Z91.04 0 LATEX ALLERGY STATUS 07/31/2019 ANSELMO LAN MD Ot Z91.19 PATIENT'S NONCOMPLIANCE W [facility] MEDICAL TR 08/02/2019 ANSELMO LAN MD, Ot B19.20 UNSPECIFIED VIRAL HEPATITIS C WITHOUT HE 08/02/2019 ANSELMO LAN MD Ot E11.51 TYPE 2 DIABETES W DIABETIC PERIPHERAL AN 08/02/2019 ANSELMO LAN MD Ot E11.69 TYPE 2 DIABETES MELLITUS WITH OTHER SPEC 08/02/2019 ANSELMO LAN MD Ot F17.21 0 NICOTINE DEPENDENCE, CIGARETTES, UNCOMPL 08/02/2019 ANSELMO LAN MD Ot F20.9 SCHIZOPHRENIA, UNSPECIFIED 08/02/2019 ANSELMO LAN MD Ot F31.9 BIPOLAR DISORDER, UNSPECIFIED 08/02/2019 ANSELMO LAN MD Ot I10 ESSENTIAL (PRIMARY) HYPERTENSION 08/02/2019 ANSELMO LAN MD Ot J45.90 9 UNSPECIFIED ASTHMA, UNCOMPLICATED 08/02/2019 ANSELMO LAN MD, Ot K21.9 GASTRO-ESOPHAGEAL REFLUX DISEASE WITHOUT 08/02/2019 ANSELMO LAN MD, Ot M86.9 OSTEOMYELITIS, UNSPECIFIED 08/02/2019 ANSELMO LAN MD, Ot Z11.2 ENCOUNTER FOR SCREENING FOR OTHER BACTER 08/02/2019 ANSELMO LAN MD, Ot Z79.89 9 OTHER [employer] (CURRENT) DRUG THERAPY 08/02/2019 ANSELMO LAN MD, Ot Z91.04 0 LATEX ALLERGY STATUS 08/02/2019 ANSELMO LAN MD, Ot Z91.19 PATIENT'S NONCOMPLIANCE W OT MEDICAL TR 08/03/2019 CLAY BRENNAN MD Ot E11.42 TYPE 2 DIABETES MELLITUS WITH DIABETIC P 08/03/2019 CLAY BRENNAN MD, Ot E11.621 TYPE 2 DIABETES MELLITUS WITH FOOT ULCER 08/03/2019 CLAY BRENNAN MD, Ot F20 .9 SCHIZOPHRENIA, UNSPECIFIED 08/03/2019 CLAY BRENNAN MD Ot I10 ESSENTIAL (PRIMARY) HYPERTENSION 08/03/2019 CLAY BRENNAN MD Ot I70.235 ATHSCL [place] ARTERIES OF RIGHT LEG W UL 08/03/2019 CLAY BRENNAN MD Ot L97.512 NON-PRS CHRONIC ULCER OTH PRT RIGHT FOOT 08/03/2019 CLAY BRENNAN MD Ot L97.522 NON-PRS CHRONIC ULCER OTH PRT LEFT FOOT 08/04/2019 CLAY BRENNAN MD Ot E11.42 TYPE 2 DIABETES MELLITUS WITH DIABETIC P 08/04/2019 CLAY BRENNAN MD Ot E11.52 TYPE 2 DIABETES W DIABETIC PERIPHERAL AN 08/04/2019 CLAY BRENNAN MD Ot E11.621 TYPE 2 DIABETES MELLITUS WITH FOOT ULCER 08/04/2019 CLAY BRENNAN MD Ot F20 .9 SCHIZOPHRENIA, UNSPECIFIED 08/04/2019 CLAY BRENNAN MD Ot I10 ESSENTIAL (PRIMARY) HYPERTENSION 08/04/2019 CLAY BRENNAN MD Ot I70.261 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 08/04/2019 CLAY BRENNAN MD Ot L97.512 NON-PRS CHRONIC ULCER OTH PRT RIGHT FOOT 08/09/2019 CLAY BRENNAN MD Ot E11.42 TYPE 2 DIABETES MELLITUS WITH DIABETIC P 08/09/2019 CLAY BRENNAN MD Ot E11.52 TYPE 2 DIABETES W DIABETIC PERIPHERAL AN 08/09/2019 ANU HERNANDEZ, CLAY Zapata Ot E11.621 TYPE 2 DIABETES MELLITUS WITH FOOT ULCER 08/09/2019 CLAY BRENNAN MD Ot F20 .9 SCHIZOPHRENIA, UNSPECIFIED 08/09/2019 ANU HERNANDEZ, CLAY Zapata Ot I10 ESSENTIAL (PRIMARY) HYPERTENSION 08/09/2019 ANU HERNANDEZ, CLAY Zapata Ot I70.235 ATHSCL [place] ARTERIES OF RIGHT LEG W UL 08/09/2019 CLAY BRENNAN MD Ot L97.512 NON-PRS CHRONIC ULCER OTH PRT RIGHT FOOT 08/09/2019 CLAY BRENNAN MD Ot L97.521 NON-PRS CHRONIC ULCER OTH PRT L FOOT KOHLI 08/16/2019 CLAY BRENNAN MD Ot E11.42 TYPE 2 DIABETES MELLITUS WITH DIABETIC P 08/16/2019 CLAY BRENNAN MD Ot E11.621 TYPE 2 DIABETES MELLITUS WITH FOOT ULCER 08/16/2019 CLAY BRENNAN MD Ot F20 .9 SCHIZOPHRENIA, UNSPECIFIED 08/16/2019 ANU HERNANDEZ, CLAY Zapata Ot I10 ESSENTIAL (PRIMARY) HYPERTENSION 08/16/2019 ANU HERNANDEZ, CLAY Zapata Ot I70.235 ATHSCL [place] ARTERIES OF RIGHT LEG W UL 08/16/2019 ANU HERNANDEZ, CLAY Zapata Ot L97.514 NON-PRS CHRONIC ULCER OTH PRT RIGHT FOOT 08/16/2019 CLAY BRENNAN MD Ot L97.522 NON-PRS CHRONIC ULCER OTH PRT LEFT FOOT 08/23/2019 CLAY BRENNAN MD Ot E11.42 TYPE 2 DIABETES MELLITUS WITH DIABETIC P 08/23/2019 ANU HERNANDEZ, CLAY Zapata Ot E11.621 TYPE 2 DIABETES MELLITUS WITH FOOT ULCER 08/23/2019 CLAY BRENNAN MD Ot F20 .9 SCHIZOPHRENIA, UNSPECIFIED 08/23/2019 ANU HERNANDEZ, CLAY Zapata Ot I10 ESSENTIAL (PRIMARY) HYPERTENSION 08/23/2019 ANU HERNANDEZ, CLAY Zapata Ot L97.512 NON-PRS CHRONIC ULCER OTH PRT RIGHT FOOT 08/23/2019 CLAY BRENNAN MD Ot L97.522 NON-PRS CHRONIC ULCER OTH PRT LEFT FOOT 08/23/2019 CLAY BRENNAN MD Ot M86.471 CHRONIC OSTEOMYELITIS W DRAINING SINUS, 08/23/2019 CLAY BRENNAN MD Ot B18 .2 CHRONIC VIRAL HEPATITIS C 08/23/2019 CLAY BRENNAN MD Ot E11.621 TYPE 2 DIABETES MELLITUS WITH FOOT ULCER 08/23/2019 CLAY BRENNAN MD Ot L97.514 NON-PRS CHRONIC ULCER OTH PRT RIGHT FOOT 08/24/2019 CLAY BRENNAN MD Ot E11.42 TYPE 2 DIABETES MELLITUS WITH DIABETIC P 08/24/2019 CLAY BRENNAN MD Ot E11.621 TYPE 2 DIABETES MELLITUS WITH FOOT ULCER 08/24/2019 CLAY BRENNAN MD Ot F20 .9 SCHIZOPHRENIA, UNSPECIFIED 08/24/2019 CLAY BRENNAN MD Ot I10 ESSENTIAL (PRIMARY) HYPERTENSION 08/24/2019 CLAY BRENNAN MD Ot I70.235 ATHSCL [place] ARTERIES OF RIGHT LEG W UL 08/24/2019 CLAY BRENNAN MD Ot L97.512 NON-PRS CHRONIC ULCER OTH PRT RIGHT FOOT 08/24/2019 CLAY BRENNAN MD Ot L97.522 NON-PRS CHRONIC ULCER OTH PRT LEFT FOOT 08/26/2019 CLAY BRENNAN MD Ot E11.42 TYPE 2 DIABETES MELLITUS WITH DIABETIC P 08/26/2019 CLAY BRENNAN MD Ot E11.621 TYPE 2 DIABETES MELLITUS WITH FOOT ULCER 08/26/2019 CLAY BRENNAN MD Ot F20 .9 SCHIZOPHRENIA, UNSPECIFIED 08/26/2019 CLAY BRENNAN MD Ot I10 ESSENTIAL (PRIMARY) HYPERTENSION 08/26/2019 CLAY BRENNAN MD Ot I70.235 ATHSCL [place] ARTERIES OF RIGHT LEG W UL 08/26/2019 CLAY BRENNAN MD Ot L97.514 NON-PRS CHRONIC ULCER OTH PRT RIGHT FOOT 08/26/2019 CLAY BRENNAN MD Ot L97.522 NON-PRS CHRONIC ULCER OTH PRT LEFT FOOT 08/28/2019 CLAY BRENNAN MD Ot B18 .2 CHRONIC VIRAL HEPATITIS C 08/28/2019 CLAY BRENNAN MD Ot E11.621 TYPE 2 DIABETES MELLITUS WITH FOOT ULCER 08/28/2019 CLAY BRENNAN MD Ot L97.514 NON-PRS CHRONIC ULCER OTH PRT RIGHT FOOT 08/30/2019 CLAY BRENNAN MD Ot B18 .2 CHRONIC VIRAL HEPATITIS C 08/30/2019 CLAY BRENNAN MD Ot E11.621 TYPE 2 DIABETES MELLITUS WITH FOOT ULCER 08/30/2019 CLAY BRENNAN MD Ot L97.514 NON-PRS CHRONIC ULCER OTH PRT RIGHT FOOT 08/30/2019 CLAY BRENNAN MD Ot B18 .2 CHRONIC VIRAL HEPATITIS C 08/30/2019 CLAY BRENNAN MD Ot E11.621 TYPE 2 DIABETES MELLITUS WITH FOOT ULCER 08/30/2019 CLAY BRENNAN MD Ot L97.514 NON-PRS CHRONIC ULCER OTH PRT RIGHT FOOT 08/30/2019 CLAY BRENNAN MD Ot B18 .2 CHRONIC VIRAL HEPATITIS C 08/30/2019 CLAY BRENNAN MD Ot E11.621 TYPE 2 DIABETES MELLITUS WITH FOOT ULCER 08/30/2019 CLAY BRENNAN MD Ot L97.514 NON-PRS CHRONIC ULCER OTH PRT RIGHT FOOT 08/30/2019 CLAY BRENNAN MD, Ot B18 .2 CHRONIC VIRAL HEPATITIS C 08/30/2019 CLAY BRENNAN MD, Ot E11.621 TYPE 2 DIABETES MELLITUS WITH FOOT ULCER 08/30/2019 CLAY BRENNAN MD Ot L97.514 NON-PRS CHRONIC ULCER OTH PRT RIGHT FOOT 08/30/2019 SIENA PAEZ MD Ot E11.6 22 TYPE 2 DIABETES MELLITUS WITH OTHER SKIN 08/30/2019 SIENA PAEZ MD Ot F17.2 98 NICOTINE DEPENDENCE, OTH TOBACCO PRODUCT 08/30/2019 SIENA PAEZ MD Ot I10 ESSENTIAL (PRIMARY) HYPERTENSION 08/30/2019 SIENA PAEZ MD Ot 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 08/30/2019 SIENA PAEZ MD Ot L89.8 90 PRESSURE ULCER OF OTHER SITE, UNSTAGEABL 08/30/2019 SIENA PAEZ MD Ot L89.8 92 PRESSURE ULCER OF OTHER SITE, STAGE 2 08/30/2019 CLAY BRENNAN MD Ot B18 .2 CHRONIC VIRAL HEPATITIS C 08/30/2019 CLAY BRENNAN MD Ot E11.621 TYPE 2 DIABETES MELLITUS WITH FOOT ULCER 08/30/2019 CLAY BRENNAN MD Ot L97.514 NON-PRS CHRONIC ULCER OTH PRT RIGHT FOOT 08/30/2019 CLAY BRENNAN MD Ot B18 .2 CHRONIC VIRAL HEPATITIS C 08/30/2019 CLAY BRENNAN MD Ot E11.621 TYPE 2 DIABETES MELLITUS WITH FOOT ULCER 08/30/2019 CLAY BRENNAN MD Ot L97.514 NON-PRS CHRONIC ULCER OTH PRT RIGHT FOOT 08/30/2019 CLAY BRENNAN MD Ot E11.42 TYPE 2 DIABETES MELLITUS WITH DIABETIC P 08/30/2019 ANU HERNANDEZ, CLAY Zapata Ot E11.621 TYPE 2 DIABETES MELLITUS WITH FOOT ULCER 08/30/2019 CLAY BRENNAN MD Ot F20 .9 SCHIZOPHRENIA, UNSPECIFIED 08/30/2019 ANU HERNANDEZ, CLAY Zapata Ot I10 ESSENTIAL (PRIMARY) HYPERTENSION 08/30/2019 ANU HERNANDEZ, CLAY Zapata Ot L97.512 NON-PRS CHRONIC ULCER OTH PRT RIGHT FOOT 08/30/2019 CLAY BRENNAN MD Ot L97.522 NON-PRS CHRONIC ULCER OTH PRT LEFT FOOT 08/30/2019 ANU HERNANDEZ, CLAY Zapata Ot M86.471 CHRONIC OSTEOMYELITIS W DRAINING SINUS, 09/01/2019 CLAY BRENNAN MD Ot B18 .2 CHRONIC VIRAL HEPATITIS C 09/01/2019 ANU HERNANDEZ, CLAY Zapata Ot E11.42 TYPE 2 DIABETES MELLITUS WITH DIABETIC P 09/01/2019 ANU HERNANDEZ, CLAY Zapata Ot E11.621 TYPE 2 DIABETES MELLITUS WITH FOOT ULCER 09/01/2019 CLAY BRENNAN MD Ot F20 .9 SCHIZOPHRENIA, UNSPECIFIED 09/01/2019 CLAY BRENNAN MD Ot I10 ESSENTIAL (PRIMARY) HYPERTENSION 09/01/2019 CLAY BRENNAN MD Ot L97.514 NON-PRS CHRONIC ULCER OTH PRT RIGHT FOOT 09/01/2019 CLAY BRENNAN MD Ot L97.522 NON-PRS CHRONIC ULCER OTH PRT LEFT FOOT 09/01/2019 CLAY BRENNAN MD Ot M86.471 CHRONIC OSTEOMYELITIS W DRAINING SINUS, 09/01/2019 CLAY BRENNAN MD Ot B18 .2 CHRONIC VIRAL HEPATITIS C 09/01/2019 ANU HERNANDEZ, CLAY Zapata Ot E11.42 TYPE 2 DIABETES MELLITUS WITH DIABETIC P 09/01/2019 ANU HERNANDEZ, CLAY Zapata Ot E11.621 TYPE 2 DIABETES MELLITUS WITH FOOT ULCER 09/01/2019 CLAY BRENNAN MD Ot F20 .9 SCHIZOPHRENIA, UNSPECIFIED 09/01/2019 CLAY BRENNAN MD Ot I10 ESSENTIAL (PRIMARY) HYPERTENSION 09/01/2019 CLAY BRENNAN MD Ot L97.514 NON-PRS CHRONIC ULCER OTH PRT RIGHT FOOT 09/01/2019 CLAY BRENNAN MD Ot L97.522 NON-PRS CHRONIC ULCER OTH PRT LEFT FOOT 09/01/2019 CLAY BRENNAN MD, Ot M86.471 CHRONIC OSTEOMYELITIS W DRAINING SINUS, 09/04/2019 CLAY BRENNAN MD, Ot E11.42 TYPE 2 DIABETES MELLITUS WITH DIABETIC P 09/04/2019 ANU HERNANDEZ, CLAY Zapata Ot E11.621 TYPE 2 DIABETES MELLITUS WITH FOOT ULCER 09/04/2019 CLAY BRENNAN MD Ot F20 .9 SCHIZOPHRENIA, UNSPECIFIED 09/04/2019 CLAY BRENNAN MD Ot I10 ESSENTIAL (PRIMARY) HYPERTENSION 09/04/2019 CLAY BRENNAN MD Ot L97.512 NON-PRS CHRONIC ULCER OTH PRT RIGHT FOOT 09/04/2019 CLAY BRENNAN MD, Ot L97.522 NON-PRS CHRONIC ULCER OTH PRT LEFT FOOT 09/04/2019 CLAY BRENNAN MD, Ot M86.471 CHRONIC OSTEOMYELITIS W DRAINING SINUS, 09/06/2019 CLAY BRNENAN MD Ot E11.42 TYPE 2 DIABETES MELLITUS WITH DIABETIC P 09/06/2019 ANU HERNANDEZ, CLAY Zapata Ot E11.621 TYPE 2 DIABETES MELLITUS WITH FOOT ULCER 09/06/2019 CLAY BRENNAN MD, Ot F20 .9 SCHIZOPHRENIA, UNSPECIFIED 09/06/2019 CLAY BRENNAN MD Ot I10 ESSENTIAL (PRIMARY) HYPERTENSION 09/06/2019 CLAY BRENNAN MD Ot L97.512 NON-PRS CHRONIC ULCER OTH PRT RIGHT FOOT 09/06/2019 CLAY BRENNAN MD Ot L97.522 NON-PRS CHRONIC ULCER OTH PRT LEFT FOOT 09/06/2019 CLAY BRENNAN MD, Ot M86.471 CHRONIC OSTEOMYELITIS W DRAINING SINUS, Procedures Code Description [place] [address] A1C (IN-HOUSE) 06/08/2012 PODIATRY W EMILIANO PRUITT 06/11/2013 16097 A1C (IN-HOUSE) 08/23/2013 54674 DEBR JASON NAIL 1-5 09/30/2013 45290 AMERITOX 10/04/2013 Physical P hysical Therapy 01/03/2014 56338 CMP 04/18/2014 53833 LIPI D PANEL 04/18/2014 94533 VIT B 12 04/18/2014 93084 KOLTON MIN D I-25 DIHYDROXY 04/18/2014 72547 A1C (IN-HOUSE) 04/18/2014 02134 TSH 04/18/2014 47575 CBC 04/18/2014 49995 A1C (IN-HOUSE) 08/02/2014 [id number] IN SERTION OF INFUSION DEV INTO SUP VENA 09/18/2017 [id number] IN SERTION OF ENDOTRACHEAL AIRWAY INTO TR 09/15/2018 [id number] RE SPIRATORY VENTILATION, LESS THAN 24 CO 09/15/2018 [id number] DE TACHMENT AT RIGHT 1ST TOE, MID, OPEN A 01/27/2019 Results Test Result Range CBC With Differential/Platelet - 7 14:49 WBC 6.4 x10E3/uL 3.4-10.8 RBC 4.13 x10E6/uL 4.14-5.80 Hemoglobin 14.3 g/dL 12.6-17.7 Hematocrit 39.3 % 37.5-51.0 MCV 95 fL 79-97 MCH 34.6 pg 26.6-33.0 MCHC 36.4 g/dL 31.5-35.7 RDW 12.9 % 12.3-15.4 Platelets 216 x10E3/uL 150-379 Neutrophils 66 % Lymphs 19 % Monocytes 13 % Eos 1 % Basos 1 % Neutrophils (Absolute) 4.3 x10E3/uL 1.4- 7.0 Lymphs (Absolute) 1.2 x10E3/uL 0.7-3.1 Monocytes(Absolute) 0.8 x10E3/uL 0.1-0.9 Eos (Absolute) 0.0 x10E3/uL 0.0-0.4 Baso (Absolute) 0.0 x10E3/uL 0.0-0.2 Immature Granulocytes 0 % Immature Grans (Abs) 0.0 x10E3/uL 0.0-0. 1 Comp. Metabolic Panel (14) - 05/21/16 14 :49 Glucose, Serum 155 mg/dL 65-99 BUN 6 mg/dL 6-24 Creatinine, Serum 0.60 mg/dL 0.76-1.27 eGFR If NonAfricn Am 124 mL/min/1.73 >59 eGFR If Africn Am 143 mL/min/1.73 >5 9 BUN/Creatinine Ratio 10 9-20 Sodium, Serum 131 [...] C Virus Ab >11.0 s/co ratio 0.0-0.9 Reticulocyte Count - 09/14/17 16:10 Reticulocyte Count 1.2 % 0.6-2.6 Complete blood count (CBC) with automate d white blood cell (WBC) differential - 09/18/17 13:42 Blood leukocytes automated count (number/volume) 4.7 10*3/uL 4.3-11.0 Blood erythrocytes automated count (number/volume) 2.85 10*6/uL 4.35-5.85 Venous blood hemoglobin measurement (mass/volume) 9.6 g/dL 13.3-17.7 Blood hematocrit (volume fraction) 28 % 40-54 Automated erythrocyte mean corpuscular volume 99 [ foz_us] 80-99 Automated erythrocyte mean corpuscular h emoglobin (mass per erythrocyte) 34 pg 25-34 Automated erythrocyte mean corpuscular h emoglobin concentration measurement (mass/volume) 34 g/dL 32-36 Automated erythrocyte distribution width ratio 12. 5 % 10.0- 14.5 Automated blood platelet count (count/volume) 286 10*3/uL [...] 10*3 1.0-4.0 Blood monocytes automated count (number/volume) 0. 9 10*3 0.0-1.0 Automated eosinophil count 0.2 10*3/uL 0 .0-0.3 Automated blood basophil count (count/volume) 0.1 10*3/uL 0.0-0.1 Comprehensive metabolic panel - 09/18/17 13:42 Serum or plasma sodium measurement (moles/volume) 128 mmol/L 135-145 Serum or plasma potassium measurement (moles/volume) 4.6 mmol/L 3.6-5.0 Serum or plasma chloride measurement (moles/volume) 96 mmol/L 98-107 Carbon dioxide 23 mmol/L 21-32 Serum or plasma anion gap determination (moles/volume) 9 mmol/L 5-14 Serum or plasma urea nitrogen measurement (mass/volume ) 5 mg/dL 7-18 Serum or plasma creatinine measurement (mass/volume) 0.69 mg/dL 0.60-1.30 Serum or plasma urea nitrogen/creatinine mass ratio 7 NRG Serum or plasma creatinine measurement w ith calculation of estimated glomerular filtration rate > NRG Serum or plasma glucose measurement (mass/volume) 69 mg/dL 70-105 Serum or plasma calcium measurement (mass/volume) 8.6 mg/dL 8.5-10.1 Serum or plasma total bilirubin measurement (mass/volu me) 0.3 mg/dL 0.1-1.0 Serum or plasma alkaline phosphatase shakir surement (enzymatic activity/volume) 41 U/L 40-136 Serum or plasma aspartate aminotransfera se measurement (enzymatic activity/volume) 21 U/L 5-34 Serum or plasma alanine aminotransferase measurement (enzymatic activity/volume) 15 U/L 0-55 Serum or plasma protein measurement (mass/volume) 5.7 g/dL 6.4-8.2 Serum or plasma albumin measurement (mass/volume) 3.5 g/dL 3.2-4.5 Blood manual differential performed dete ction - 09/18/17 13:42 Blood monocytes/100 leukocytes 12 % NRG Manual blood segmented neutrophils/100 leukocytes 50 % NRG Manual blood lymphocytes/100 leukocytes 32 % NRG Manual eosinophils/100 leukocytes in nose 6 % NRG Blood erythrocyte morphology finding identification NORMAL NRG Capillary blood glucose measurement by g lucometer (mass/volume) - 09/18/17 17:45 Capillary blood glucose measurement by glucometer (mas s/volume) 100 mg/dL 70-110 Capillary blood glucose measurement by g lucometer (mass/volume) - 09/18/17 20:36 Capillary blood glucose measurement by glucometer (mas s/volume) 113 mg/dL 70-110 Capillary blood glucose measurement by g lucometer (mass/volume) - 09/19/17 05:22 Capillary blood glucose measurement by glucometer (mas s/volume) 104 mg/dL 70-110 Complete blood count (CBC) with automate d white blood cell (WBC) differential - 09/19/17 10:20 Blood leukocytes automated count (number/volume) 3.6 10*3/uL 4.3-11.0 Blood erythrocytes automated count (number/volume) 2.62 10*6/uL 4.35-5.85 Venous blood hemoglobin measurement (mass/volume) 9.0 g/dL 13.3-17.7 Blood hematocrit (volume fraction) 26 % 40-54 Automated erythrocyte mean corpuscular volume 99 [ foz_us] 80-99 Automated erythrocyte mean corpuscular h emoglobin (mass per erythrocyte) 34 pg 25-34 Automated erythrocyte mean corpuscular h emoglobin concentration measurement (mass/volume) 35 g/dL 32-36 Automated erythrocyte distribution width ratio 13. 0 % 10.0- 14.5 Automated blood platelet count (count/volume) 263 10*3/uL [...] 10*3 1.0-4.0 Blood monocytes automated count (number/volume) 0. 7 10*3 0.0-1.0 Automated eosinophil count 0.1 10*3/uL 0 .0-0.3 Automated blood basophil count (count/volume) 0.0 10*3/uL 0.0-0.1 Comprehensive metabolic panel - 09/19/17 10:20 Serum or plasma sodium measurement (moles/volume) 132 mmol/L 135-145 Serum or plasma potassium measurement (moles/volume) 4.6 mmol/L 3.6-5.0 Serum or plasma chloride measurement (moles/volume) 101 mmol/L 98-107 Carbon dioxide 25 mmol/L 21-32 Serum or plasma anion gap determination (moles/volume) 6 mmol/L 5-14 Serum or plasma urea nitrogen measurement (mass/volume ) 4 mg/dL 7-18 Serum or plasma creatinine measurement (mass/volume) 0.67 mg/dL 0.60-1.30 Serum or plasma urea nitrogen/creatinine mass ratio 6 NRG Serum or plasma creatinine measurement w ith calculation of estimated glomerular filtration rate > NRG Serum or plasma glucose measurement (mass/volume) 96 mg/dL 70-105 Serum or plasma calcium measurement (mass/volume) 8.8 mg/dL 8.5-10.1 Serum or plasma total bilirubin measurement (mass/volu me) 0.4 mg/dL 0.1-1.0 Serum or plasma alkaline phosphatase shakir surement (enzymatic activity/volume) 43 U/L 40-136 Serum or plasma aspartate aminotransfera se measurement (enzymatic activity/volume) 19 U/L 5-34 Serum or plasma alanine aminotransferase measurement (enzymatic activity/volume) 14 U/L 0-55 Serum or plasma protein measurement (mass/volume) 5.7 g/dL 6.4-8.2 Serum or plasma albumin measurement (mass/volume) 3.4 g/dL 3.2-4.5 Capillary blood glucose measurement by g lucometer (mass/volume) - 09/19/17 11:45 Capillary blood glucose measurement by glucometer (mas s/volume) 100 mg/dL 70-110 Capillary blood glucose measurement by g lucometer (mass/volume) - 09/19/17 16:11 Capillary blood glucose measurement by glucometer (mas s/volume) 132 mg/dL 70-110 Capillary blood glucose measurement by g lucometer (mass/volume) - 09/19/17 21:11 Capillary blood glucose measurement by glucometer (mas s/volume) 112 mg/dL 70-110 Complete blood count (CBC) with automate d white blood cell (WBC) differential - 09/20/17 05:05 Blood leukocytes automated count (number/volume) 4.7 10*3/uL 4.3-11.0 Blood erythrocytes automated count (number/volume) 2.66 10*6/uL 4.35-5.85 Venous blood hemoglobin measurement (mass/volume) 9.1 g/dL 13.3-17.7 Blood hematocrit (volume fraction) 26 % 40-54 Automated erythrocyte mean corpuscular volume 99 [ foz_us] 80-99 Automated erythrocyte mean corpuscular h emoglobin (mass per erythrocyte) 34 pg 25-34 Automated erythrocyte mean corpuscular h emoglobin concentration measurement (mass/volume) 35 g/dL 32-36 Automated erythrocyte distribution width ratio 12. 9 % 10.0- 14.5 Automated blood platelet count (count/volume) 254 10*3/uL [...] 10*3 1.0-4.0 Blood monocytes automated count (number/volume) 0. 9 10*3 0.0-1.0 Automated eosinophil count 0.2 10*3/uL 0 .0-0.3 Automated blood basophil count (count/volume) 0.0 10*3/uL 0.0-0.1 Whole blood basic metabolic panel - 09/08 07/26 05:05 Serum or plasma sodium measurement (moles/volume) 131 mmol/L 135-145 Serum or plasma potassium measurement (moles/volume) 4.3 mmol/L 3.6-5.0 Serum or plasma chloride measurement (moles/volume) 99 mmol/L 98-107 Carbon dioxide 22 mmol/L 21-32 Serum or plasma anion gap determination (moles/volume) 10 mmol/L 5-14 Serum or plasma urea nitrogen measurement (mass/volume ) 4 mg/dL 7-18 Serum or plasma creatinine measurement (mass/volume) 0.75 mg/dL 0.60-1.30 Serum or plasma urea nitrogen/creatinine mass ratio 5 NRG Serum or plasma creatinine measurement w ith calculation of estimated glomerular filtration rate > NRG Serum or plasma glucose measurement (mass/volume) 94 mg/dL 70-105 Serum or plasma calcium measurement (mass/volume) 9.0 mg/dL 8.5-10.1 Vancomycin trough - 09/20/17 07:15 Vancomycin trough 22.3 ug/mL 10.0-20.0 Capillary blood glucose measurement by g lucometer (mass/volume) - 09/20/17 11:12 Capillary blood glucose measurement by glucometer (mas s/volume) 122 mg/dL 70-110 Capillary blood glucose measurement by g lucometer (mass/volume) - 09/20/17 15:44 Capillary blood glucose measurement by glucometer (mas s/volume) 118 mg/dL 70-110 Complete blood count (CBC) with automate d white blood cell (WBC) differential - 09/25/17 15:23 Blood leukocytes automated count (number/volume) 7.4 10*3/uL 4.3-11.0 Blood erythrocytes automated count (number/volume) 3.00 10*6/uL 4.35-5.85 Venous blood hemoglobin measurement (mass/volume) 10.4 g/dL 13.3-17.7 Blood hematocrit (volume fraction) 30 % 40-54 Automated erythrocyte mean corpuscular volume 99 [ foz_us] 80-99 Automated erythrocyte mean corpuscular h emoglobin (mass per erythrocyte) 35 pg 25-34 Automated erythrocyte mean corpuscular h emoglobin concentration measurement (mass/volume) 35 g/dL 32-36 Automated erythrocyte distribution width ratio 13. 9 % 10.0- 14.5 Automated blood platelet count (count/volume) 218 10*3/uL [...] 10*3 1.0-4.0 Blood monocytes automated count (number/volume) 0. 9 10*3 0.0-1.0 Automated eosinophil count 0.2 10*3/uL 0 .0-0.3 Automated blood basophil count (count/volume) 0.0 10*3/uL 0.0-0.1 Comprehensive metabolic panel - 09/25/17 15:23 Serum or plasma sodium measurement (moles/volume) 130 mmol/L 135-145 Serum or plasma potassium measurement (moles/volume) 4.6 mmol/L 3.6-5.0 Serum or plasma chloride measurement (moles/volume) 94 mmol/L 98-107 Carbon dioxide 25 mmol/L 21-32 Serum or plasma anion gap determination (moles/volume) 11 mmol/L 5-14 Serum or plasma urea nitrogen measurement (mass/volume ) 7 mg/dL 7-18 Serum or plasma creatinine measurement (mass/volume) 0.78 mg/dL 0.60-1.30 Serum or plasma urea nitrogen/creatinine mass ratio 9 NRG Serum or plasma creatinine measurement w ith calculation of estimated glomerular filtration rate > NRG Serum or plasma glucose measurement (mass/volume) 93 mg/dL 70-105 Serum or plasma calcium measurement (mass/volume) 9.5 mg/dL 8.5-10.1 Serum or plasma total bilirubin measurement (mass/volu me) 0.5 mg/dL 0.1-1.0 Serum or plasma alkaline phosphatase shakir surement (enzymatic activity/volume) 57 U/L 40-136 Serum or plasma aspartate aminotransfera se measurement (enzymatic activity/volume) 21 U/L 5-34 Serum or plasma alanine aminotransferase measurement (enzymatic activity/volume) 17 U/L 0-55 Serum or plasma protein measurement (mass/volume) 6.8 g/dL 6.4-8.2 Serum or plasma albumin measurement (mass/volume) 4.0 g/dL 3.2-4.5 Erythrocyte sedimentation rate by leann gren method - 09/25/17 15:23 Erythrocyte sedimentation rate by westergren method 31 mm 0- 15 Gram stain microscopy - 09/25/17 16:06 GRAM STAIN RESULT FEW WBC'S, NO BACTERIA OBSERVED NRG Bacteria identification in wound by cult ure - 09/25/17 16:06 Bacteria identification in wound by culture [id number] NRG FREE TEXT EXTERNAL MORE THAN ONE COLONY TYPE NRG QUANTITY OF GROWTH Scant Growth NRG Bacterial susceptibility panel - 8 16:06 Oxacillin susceptibility test by minimum inhibitory co ncentration <= NRG Gentamicin susceptibility test by minimum inhibitory c oncentration <= NRG Clindamycin susceptibility test by minimum inhibitory concentration <= NRG Erythromycin susceptibility test by minimum inhibitory concentration <= NRG Trimethoprim/sulfamethoxazole susceptibi lity test by minimum inhibitoryconcentration S NRG Vancomycin susceptibility test by minimum inhibitory c oncentration <= NRG Levofloxacin susceptibility test by minimum inhibitory concentration 0.25 NRG Rifampin susceptibility test by minimum inhibitory con centration <= NRG Tetracycline susceptibility test by minimum inhibitory concentration <= NRG Bacteria identification in isolate by an aerobe culture - 09/30/17 13:25 Bacteria identification in isolate by anaerobe culture NOANA NRG Gram stain microscopy - 09/30/17 13:25 GRAM STAIN RESULT NO BACTERIA OBSERVED NRG Bacteria identification in wound by cult ure - 09/30/17 13:25 Bacteria identification in wound by culture [id number] NRG FREE TEXT EXTERNAL [place]ENSITIVITY [place]PORTED AT 1408, 5 -26-18 NRG QUANTITY OF GROWTH Scant Growth NRG Bacterial susceptibility panel - 8 13:25 Oxacillin susceptibility test by minimum inhibitory co ncentration <= NRG Gentamicin susceptibility test by minimum inhibitory c oncentration <= NRG Clindamycin susceptibility test by minimum inhibitory concentration <= NRG Erythromycin susceptibility test by minimum inhibitory concentration <= NRG Trimethoprim/sulfamethoxazole susceptibi lity test by minimum inhibitoryconcentration S NRG Vancomycin susceptibility test by minimum inhibitory c oncentration 1 NRG Levofloxacin susceptibility test by minimum inhibitory concentration 0.25 NRG Rifampin susceptibility test by minimum inhibitory con centration <= NRG Tetracycline susceptibility test by minimum inhibitory concentration <= NRG Linezolid susceptibility test by minimum inhibitory co ncentration 2 NRG Bacterial susceptibility panel - 8 13:25 Gentamicin susceptibility test by minimum inhibitory c oncentration S NRG Erythromycin susceptibility test by minimum inhibitory concentration >= NRG Vancomycin susceptibility test by minimum inhibitory c oncentration 2 NRG Ampicillin susceptibility test by minimum inhibitory c oncentration <= NRG Linezolid susceptibility test by minimum inhibitory co ncentration 1 NRG Bacterial susceptibility panel - 8 13:25 Oxacillin susceptibility test by minimum inhibitory co ncentration S NRG Gentamicin susceptibility test by minimum inhibitory c oncentration <= NRG Clindamycin susceptibility test by minimum inhibitory concentration 0.5 NRG Erythromycin susceptibility test by minimum inhibitory concentration <= NRG Trimethoprim/sulfamethoxazole susceptibi lity test by minimum inhibitoryconcentration S NRG Vancomycin susceptibility test by minimum inhibitory c oncentration <= NRG Levofloxacin susceptibility test by minimum inhibitory concentration 0.5 NRG Rifampin susceptibility test by minimum inhibitory con centration <= NRG Tetracycline susceptibility test by minimum inhibitory concentration <= NRG Ciprofloxacin susceptibility test by minimum inhibitor y concentration I NRG Linezolid susceptibility test by minimum inhibitory co ncentration 2 NRG Hemoglobin A1c - 09/30/17 14:38 Blood hemoglobin A1C measurement (mass/volume) 4.7 % 4.0-5.6 MEAN BLOOD GLUCOSE 88 % <=126 Bacteria identification in isolate by an aerobe culture - 10/21/17 14:01 Bacteria identification in isolate by anaerobe culture NOANA NR Gram stain microscopy - 10/21/17 14:01 GRAM STAIN RESULT NO BACTERIA OBSERVED [facility] Bacteria identification in wound by cult ure - 10/21/17 14:01 Bacteria identification in wound by culture [id number] [facility] FREE TEXT EXTERNAL SENSITIVITY REPORTED AT 1250, 6 -16-18 NRG QUANTITY OF GROWTH Scant Growth NRG MRSA AGAR Screening test for MRSA is N EGATIVE (Final to follow) [facility] Bacterial susceptibility panel - 8 14:01 Oxacillin susceptibility test by minimum inhibitory co ncentration <= NRG Gentamicin susceptibility test by minimum inhibitory c oncentration <= NRG Clindamycin susceptibility test by minimum inhibitory concentration <= NRG Erythromycin susceptibility test by minimum inhibitory concentration <= NRG Trimethoprim/sulfamethoxazole susceptibi lity test by minimum inhibitoryconcentration S NRG Vancomycin susceptibility test by minimum inhibitory c oncentration 1 NRG Levofloxacin susceptibility test by minimum inhibitory concentration 0.25 NRG Rifampin susceptibility test by minimum inhibitory con centration <= NRG Tetracycline susceptibility test by minimum inhibitory concentration <= NRG Linezolid susceptibility test by minimum inhibitory co ncentration 2 NRG Bacterial susceptibility panel - 8 14:01 Oxacillin susceptibility test by minimum inhibitory co ncentration >= NRG Gentamicin susceptibility test by minimum inhibitory c oncentration <= NRG Clindamycin susceptibility test by minimum inhibitory concentration <= NRG Erythromycin susceptibility test by minimum inhibitory concentration >= NRG Trimethoprim/sulfamethoxazole susceptibi lity test by minimum inhibitoryconcentration S NRG Vancomycin susceptibility test by minimum inhibitory c oncentration <= NRG Levofloxacin susceptibility test by minimum inhibitory concentration <= NRG Rifampin susceptibility test by minimum inhibitory con centration <= NRG Tetracycline susceptibility test by minimum inhibitory concentration <= NRG Linezolid susceptibility test by minimum inhibitory co ncentration 1 NRG ESR/SED RATE - 12/10/17 11:19 SED RATE BY MODIFIED WESTERGREN 2 mm/h < OR = 15 HEP C PCR QUANT (Graph)-APPROVAL REQUIRE D - 05/27/18 17:42 HCV RNA, QUANTITATIVE REAL TIME PCR [id number] IU/mL NOT DETECTED HCV RNA, QUANTITATIVE REAL TIME PCR 6.55 Log IU/mL NOT DETECTED COMMENT NRG PDM - 09 PANEL (PROFILE 1) - 07/02/18 14 :50 Creatinine 81.5 mg/dL > or = 20.0 pH 7.20 4.5 - 9.0 Oxidant NEGATIVE mcg/mL <200 Amphetamines NEGATIVE ng/mL <500 medMATCH Amphetamines CONSISTENT NRG Benzodiazepines NEGATIVE ng/mL <100 medMATCH Benzodiazepines CONSISTENT NRG Marijuana Metabolite POSITIVE ng/mL <20 Cocaine Metabolite NEGATIVE ng/mL <150 medMATCH Cocaine Metab CONSISTENT NRG Opiates NEGATIVE ng/mL <100 medMATCH Opiates CONSISTENT NRG Oxycodone NEGATIVE ng/mL <100 medMATCH Oxycodone CONSISTENT NRG COMMENT NRG Marijuana Metabolite 670 ng/mL <5 medMATCH Marijuana Metab INCONSISTENT N RG Barbiturates NEGATIVE ng/mL <300 medMATCH Barbiturates CONSISTENT NRG Methadone Metabolite NEGATIVE ng/mL <100 medMATCH Methadone Metab CONSISTENT NRG Phencyclidine NEGATIVE ng/mL <25 medMATCH Phencyclidine CONSISTENT NRG Complete blood count (CBC) with automate d white blood cell (WBC) differential - 09/15/18 22:15 Blood leukocytes automated count (number/volume) 10.9 10*3/uL 4.3-11.0 Blood erythrocytes automated count (number/volume) 3.87 10*6/uL 4.35-5.85 Venous blood hemoglobin measurement (mass/volume) 13.3 g/dL 13.3-17.7 Blood hematocrit (volume fraction) 36 % 40-54 Automated erythrocyte mean corpuscular volume 93 [ foz_us] 80-99 Automated erythrocyte mean corpuscular h emoglobin (mass per erythrocyte) 34 pg 25-34 Automated erythrocyte mean corpuscular h emoglobin concentration measurement (mass/volume) 37 g/dL 32-36 Automated erythrocyte distribution width ratio 12. 2 % 10.0- 14.5 Automated blood platelet count (count/volume) 234 10*3/uL 130-400 Automated blood platelet mean volume measurement 9.3 [foz_us] 7.4-10.4 Automated blood neutrophils/100 leukocytes 43 % 42-75 Automated blood lymphocytes/100 leukocytes 29 % 12-44 Blood monocytes/100 leukocytes 24 % 0-12 Automated blood eosinophils/100 leukocytes 4 % 0-10 Automated blood basophils/100 leukocytes 1 % 0-10 Blood neutrophils automated count (number/volume) 4.7 10*3 1.8-7.8 Blood lymphocytes automated count (number/volume) 3.1 10*3 1.0-4.0 Blood monocytes automated count (number/volume) 2. 6 10*3 0.0-1.0 Automated eosinophil count 0.4 10*3/uL 0 .0-0.3 Automated blood basophil count (count/volume) 0.1 10*3/uL 0.0-0.1 Comprehensive metabolic panel - 09/15/18 22:15 Serum or plasma sodium measurement (moles/volume) 119 mmol/L 135-145 Serum or plasma potassium measurement (moles/volume) 4.4 mmol/L 3.6-5.0 Serum or plasma chloride measurement (moles/volume) 91 mmol/L 98-107 Carbon dioxide 17 mmol/L 21-32 Serum or plasma anion gap determination (moles/volume) 11 mmol/L 5-14 Serum or plasma urea nitrogen measurement (mass/volume ) 11 mg/dL 7-18 Serum or plasma creatinine measurement (mass/volume) 0.86 mg/dL 0.60-1.30 Serum or plasma urea nitrogen/creatinine mass ratio 13 NRG Serum or plasma creatinine measurement w ith calculation of estimated glomerular filtration rate > NRG Serum or plasma glucose measurement (mass/volume) 88 mg/dL 70-105 Serum or plasma calcium measurement (mass/volume) 8.8 mg/dL 8.5-10.1 Serum or plasma total bilirubin measurement (mass/volu me) 1.1 mg/dL 0.1-1.0 Serum or plasma alkaline phosphatase shakir surement (enzymatic activity/volume) 92 U/L 40-136 Serum or plasma aspartate aminotransfera se measurement (enzymatic activity/volume) 28 U/L 5-34 Serum or plasma alanine aminotransferase measurement (enzymatic activity/volume) 28 U/L 0-55 Serum or plasma protein measurement (mass/volume) 6.5 g/dL 6.4-8.2 Serum or plasma albumin measurement (mass/volume) 3.8 g/dL 3.2-4.5 CALCIUM CORRECTED 9.0 mg/dL 8.5-10.1 Blood manual differential performed dete ction - 09/15/18 22:15 Blood monocytes/100 leukocytes 7 % NRG Manual blood segmented neutrophils/100 leukocytes 51 % NRG Blood band neutrophils/100 leukocytes 0 % NRG Manual blood lymphocytes/100 leukocytes 40 % NRG Manual eosinophils/100 leukocytes in nose 2 % NRG Manual blood basophils/100 leukocytes 0 % NRG Blood erythrocyte morphology finding identification NORMAL NRG Serum or plasma thyrotropin measurement by detection limit <=0.05 miu/l (units/volume) - 09/15/18 22:15 Serum or plasma thyrotropin measurement by detection limit <=0.05 miu/l (units/volume) 1.98 u[iU]/mL 0.35-4.94 Serum or plasma salicylates measurement (mass/volume) - 09/15/18 22:15 Serum or plasma salicylates measurement (mass/volume) < mg/dL 5.0-20.0 Serum or plasma acetaminophen measuremen t (mass/volume) - 09/15/18 22:15 Serum or plasma acetaminophen measurement (mass/volume ) < ug/mL 10-30 Serum or plasma ethanol measurement (mas s/volume) - 09/15/18 22:15 Serum or plasma ethanol measurement (mass/volume) < mg/dL <10 [id number] - 09/15/18 22:15 [id number] 118.2 ug/mL 50.0-100.0 Complete urinalysis with reflex to cultu re - 09/15/18 22:39 Urine color determination YELLOW NRG Urine clarity determination CLEAR NR G Urine pH measurement by test strip 6 5-9 Specific gravity of urine by test strip 1.020 1.016-1.022 Urine protein assay by test strip, semi-quantitative 1+ NEGATIVE Urine glucose detection by automated test strip NE GATIVE NEGATIVE Erythrocytes detection in urine sediment by light micr oscopy NEGATIVE NEGATIVE Urine ketones detection by automated test strip 1+ NEGATIVE Urine nitrite detection by test strip NEGATIVE NEGATIVE Urine total bilirubin detection by test strip 1+ NEGATIVE Urine urobilinogen measurement by automated test strip (mass/volume) 4 mg/dL NORMAL Urine leukocyte esterase detection by dipstick 1+ NEGATIVE Automated urine sediment erythrocyte cou nt by microscopy (number/high power field) [HPF] NRG Automated urine sediment leukocyte count by microscopy (number/high power field) [HPF] NRG Bacteria detection in urine sediment by light microsco py NEGATIVE NRG Crystals detection in urine sediment by light microsco py NONE NRG Casts detection in urine sediment by light microscopy PRESENT NRG Mucus detection in urine sediment by light microscopy LARGE NRG Complete urinalysis with reflex to culture NO NRG Hyaline casts detection in urine sediment by light linda roscopy 5-10 NRG Urine drug screening test - 09/15/18 22: 39 Urine phencyclidine detection by screening method NEGATIVE NEGATIVE Urine benzodiazepines detection by screening method NEGATIVE NEGATIVE Urine cocaine detection NEGATIVE NEGATI VE Urine amphetamines detection by screening method P OSITIVE NEGATIVE Urine methamphetamine detection by screening method POSITIVE NEGATIVE Urine cannabinoids detection by screening method P OSITIVE NEGATIVE Urine opiates detection by screening method POSITI VE NEGATIVE Urine barbiturates detection NEGATIVE N EGATIVE Screening urine tricyclic antidepressants detection POSITIVE NEGATIVE Urine methadone detection by screening method NEGA TIVE NEGATIVE Urine oxycodone detection NEGATIVE NEGA TIVE Urine propoxyphene detection NEGATIVE N EGATIVE Arterial blood gas measurement - 9 22:54 Blood pCO2 35 mm[Hg] 35-45 Blood pO2 192 mm[Hg] 79-93 Arterial blood bicarbonate measurement (moles/volume) 22 mmol/L 23-27 Arterial blood base excess by calculation -2.2 mmo l/L -2.5-2.5 Arterial blood oxygen saturation measurement 100 % 94-100 * Inhaled oxygen flow rate 50% NRG Arterial blood pH measurement with patient temperature correction 7.41 7.37-7.43 Arterial blood carbon dioxide, total measurement (mole s/volume) 23.0 mmol/L 21.0-31.0 Body site R RAD NRG Assessment of wrist artery patency prior to arterial p uncture YES-POS NRG Setting of ventilation mode NO NR G Measurement of body temperature 97.5 NRG Methicillin resistant Staphylococcus aur eus (MRSA) screening culture - 09/16/18 00:55 Methicillin resistant Staphylococcus aureus (MRSA) scr eening culture NEG NRG Complete blood count (CBC) with automate d white blood cell (WBC) differential - 09/16/18 03:50 Blood leukocytes automated count (number/volume) 6.8 10*3/uL 4.3-11.0 Blood erythrocytes automated count (number/volume) 3.50 10*6/uL 4.35-5.85 Venous blood hemoglobin measurement (mass/volume) 11.9 g/dL 13.3-17.7 Blood hematocrit (volume fraction) 33 % 40-54 Automated erythrocyte mean corpuscular volume 95 [ foz_us] 80-99 Automated erythrocyte mean corpuscular h emoglobin (mass per erythrocyte) 34 pg 25-34 Automated erythrocyte mean corpuscular h emoglobin concentration measurement (mass/volume) 36 g/dL 32-36 Automated erythrocyte distribution width ratio 12. 5 % 10.0- 14.5 Automated blood platelet count (count/volume) 175 10*3/uL 130-400 Automated blood platelet mean volume measurement 9.5 [foz_us] 7.4-10.4 Automated blood neutrophils/100 leukocytes 45 % 42-75 Automated blood lymphocytes/100 leukocytes 31 % 12-44 Blood monocytes/100 leukocytes 21 % 0-12 Automated blood eosinophils/100 leukocytes 2 % 0-10 Automated blood basophils/100 leukocytes 0 % 0-10 Blood neutrophils automated count (number/volume) 3.1 10*3 1.8-7.8 Blood lymphocytes automated count (number/volume) 2.1 10*3 1.0-4.0 Blood monocytes automated count (number/volume) 1. 5 10*3 0.0-1.0 Automated eosinophil count 0.1 10*3/uL 0 .0-0.3 Automated blood basophil count (count/volume) 0.0 10*3/uL 0.0-0.1 Comprehensive metabolic panel - 09/16/18 03:50 Serum or plasma sodium measurement (moles/volume) 121 mmol/L 135-145 Serum or plasma potassium measurement (moles/volume) 3.9 mmol/L 3.6-5.0 Serum or plasma chloride measurement (moles/volume) 94 mmol/L 98-107 Carbon dioxide 16 mmol/L 21-32 Serum or plasma anion gap determination (moles/volume) 11 mmol/L 5-14 Serum or plasma urea nitrogen measurement (mass/volume ) 12 mg/dL 7-18 Serum or plasma creatinine measurement (mass/volume) 0.82 mg/dL 0.60-1.30 Serum or plasma urea nitrogen/creatinine mass ratio 15 NRG Serum or plasma creatinine measurement w ith calculation of estimated glomerular filtration rate > NRG Serum or plasma glucose measurement (mass/volume) 99 mg/dL 70-105 Serum or plasma calcium measurement (mass/volume) 8.3 mg/dL 8.5-10.1 Serum or plasma total bilirubin measurement (mass/volu me) 0.7 mg/dL 0.1-1.0 Serum or plasma alkaline phosphatase shakir surement (enzymatic activity/volume) 81 U/L 40-136 Serum or plasma aspartate aminotransfera se measurement (enzymatic activity/volume) 21 U/L 5-34 Serum or plasma alanine aminotransferase measurement (enzymatic activity/volume) 24 U/L 0-55 Serum or plasma protein measurement (mass/volume) 5.5 g/dL 6.4-8.2 Serum or plasma albumin measurement (mass/volume) 3.4 g/dL 3.2-4.5 CALCIUM CORRECTED 8.8 mg/dL 8.5-10.1 Serum or plasma phosphate measurement (m ass/volume) - 09/16/18 03:50 Serum or plasma phosphate measurement (mass/volume) 3.0 mg/dL 2.3-4.7 Magnesium - 09/16/18 03:50 Magnesium 1.8 mg/dL 1.8-2.4 Serum or plasma lithium measurement (mol es/volume) - 09/16/18 03:50 BNP level 31.5 pg/mL <100.0 Arterial blood gas measurement - 9 04:42 Blood pCO2 31 mm[Hg] 35-45 Blood pO2 131 mm[Hg] 79-93 Arterial blood bicarbonate measurement (moles/volume) 21 mmol/L 23-27 Arterial blood base excess by calculation -3.3 mmo l/L -2.5-2.5 Arterial blood oxygen saturation measurement 99 % 94-100 * Inhaled oxygen flow rate 30% NRG Arterial blood pH measurement with patient temperature correction 7.43 7.37-7.43 Arterial blood carbon dioxide, total measurement (mole s/volume) 21.6 mmol/L 21.0-31.0 Body site L RAD NRG Assessment of wrist artery patency prior to arterial p uncture YES-POS NRG Setting of ventilation mode YES NR G Measurement of body temperature 96.0 NRG Blood lactic acid measurement (moles/vol ume) - 09/16/18 06:20 Blood lactic acid measurement (moles/volume) 1.87 mmol/L 0.50-2.00 PT panel in platelet poor plasma by coag ulation assay - 09/16/18 07:36 Prothrombin time (PT) in platelet poor plasma by coagu lation assay 16.8 s 12.2-14.7 INR in platelet poor plasma or blood by coagulation as say 1.3 0.8-1.4 Activated partial thromboplastin time (a PTT) in platelet poor plasma bycoagulation assay - 09/16/18 07:36 Activated partial thromboplastin time (a PTT) in platelet poor plasma bycoagulation assay 25 s 24-35 Complete blood count (CBC) with automate d white blood cell (WBC) differential - 09/17/18 03:40 Blood leukocytes automated count (number/volume) 5.9 10*3/uL 4.3-11.0 Blood erythrocytes automated count (number/volume) 3.56 10*6/uL 4.35-5.85 Venous blood hemoglobin measurement (mass/volume) 12.2 g/dL 13.3-17.7 Blood hematocrit (volume fraction) 34 % 40-54 Automated erythrocyte mean corpuscular volume 96 [ foz_us] 80-99 Automated erythrocyte mean corpuscular h emoglobin (mass per erythrocyte) 34 pg 25-34 Automated erythrocyte mean corpuscular h emoglobin concentration measurement (mass/volume) 36 g/dL 32-36 Automated erythrocyte distribution width ratio 12. 6 % 10.0- 14.5 Automated blood platelet count (count/volume) 156 10*3/uL 130-400 Automated blood platelet mean volume measurement 9.6 [foz_us] 7.4-10.4 Automated blood neutrophils/100 leukocytes 56 % 42-75 Automated blood lymphocytes/100 leukocytes 25 % 12-44 Blood monocytes/100 leukocytes 17 % 0-12 Automated blood eosinophils/100 leukocytes 2 % 0-10 Automated blood basophils/100 leukocytes 0 % 0-10 Blood neutrophils automated count (number/volume) 3.3 10*3 1.8-7.8 Blood lymphocytes automated count (number/volume) 1.5 10*3 1.0-4.0 Blood monocytes automated count (number/volume) 1. 0 10*3 0.0-1.0 Automated eosinophil count 0.1 10*3/uL 0 .0-0.3 Automated blood basophil count (count/volume) 0.0 10*3/uL 0.0-0.1 Whole blood basic metabolic panel - 09/08 03:40 Serum or plasma sodium measurement (moles/volume) 131 mmol/L 135-145 Serum or plasma potassium measurement (moles/volume) 3.6 mmol/L 3.6-5.0 Serum or plasma chloride measurement (moles/volume) 103 mmol/L 98-107 Carbon dioxide 18 mmol/L 21-32 Serum or plasma anion gap determination (moles/volume) 10 mmol/L 5-14 Serum or plasma urea nitrogen measurement (mass/volume ) 8 mg/dL 7-18 Serum or plasma creatinine measurement (mass/volume) 0.64 mg/dL 0.60-1.30 Serum or plasma urea nitrogen/creatinine mass ratio 13 NRG Serum or plasma creatinine measurement w ith calculation of estimated glomerular filtration rate > NRG Serum or plasma glucose measurement (mass/volume) 66 mg/dL 70-105 Serum or plasma calcium measurement (mass/volume) 8.4 mg/dL 8.5-10.1 Serum or plasma phosphate measurement (m ass/volume) - 09/17/18 03:40 Serum or plasma phosphate measurement (mass/volume) 2.6 mg/dL 2.3-4.7 Magnesium - 09/17/18 03:40 Magnesium 1.8 mg/dL 1.8-2.4 [id number] - 09/17/18 03:40 [id number] 72.4 ug/mL 50.0-100.0 LIPID PANEL - 09/28/18 08:36 CHOLESTEROL, TOTAL 140 mg/dL <200 HDL CHOLESTEROL 57 mg/dL >40 TRIGLYCERIDES 99 mg/dL <150 LDL-CHOLESTEROL 65 mg/dL (calc) NRG CHOL/HDLC RATIO 2.5 (calc) <5.0 NON HDL CHOLESTEROL 83 mg/dL (calc) <130 PDM - 09 PANEL (PROFILE 1) - 10/05/18 09 :17 Creatinine 30.9 mg/dL > or = 20.0 pH 7.45 4.5 - 9.0 Oxidant NEGATIVE mcg/mL <200 Amphetamines NEGATIVE ng/mL <500 medMATCH Amphetamines CONSISTENT NRG Benzodiazepines NEGATIVE ng/mL <100 medMATCH Benzodiazepines CONSISTENT NRG Marijuana Metabolite NEGATIVE ng/mL <20 medMATCH Marijuana Metab CONSISTENT NRG Cocaine Metabolite NEGATIVE ng/mL <150 medMATCH Cocaine Metab CONSISTENT NRG Opiates NEGATIVE ng/mL <100 medMATCH Opiates CONSISTENT NRG Oxycodone NEGATIVE ng/mL <100 medMATCH Oxycodone CONSISTENT NRG COMMENT NRG Barbiturates NEGATIVE ng/mL <300 medMATCH Barbiturates CONSISTENT NRG Methadone Metabolite NEGATIVE ng/mL <100 medMATCH Methadone Metab CONSISTENT NRG Phencyclidine NEGATIVE ng/mL <25 medMATCH Phencyclidine CONSISTENT NRG PDM - 09 PANEL (PROFILE 1) - 10/29/18 11 :46 Creatinine 48.2 mg/dL > or = 20.0 pH 6.98 4.5 - 9.0 Oxidant NEGATIVE mcg/mL <200 Amphetamines NEGATIVE ng/mL <500 medMATCH Amphetamines CONSISTENT NRG Benzodiazepines NEGATIVE ng/mL <100 medMATCH Benzodiazepines CONSISTENT NRG Marijuana Metabolite NEGATIVE ng/mL <20 medMATCH Marijuana Metab CONSISTENT NRG Cocaine Metabolite NEGATIVE ng/mL <150 medMATCH Cocaine Metab CONSISTENT NRG Opiates NEGATIVE ng/mL <100 medMATCH Opiates CONSISTENT NRG Oxycodone NEGATIVE ng/mL <100 medMATCH Oxycodone CONSISTENT NRG COMMENT NRG Barbiturates NEGATIVE ng/mL <300 medMATCH Barbiturates CONSISTENT NRG Methadone Metabolite NEGATIVE ng/mL <100 medMATCH Methadone Metab CONSISTENT NRG Phencyclidine NEGATIVE ng/mL <25 medMATCH Phencyclidine CONSISTENT NRG CMP - 12/14/18 15:18 GLUCOSE 81 mg/dL 65-99 UREA NITROGEN (BUN) 12 mg/dL 7-25 CREATININE 0.71 mg/dL 0.60-1.35 eGFR NON-AFR. MICRONESIAN 113 mL/min/1.73m2 > OR = 60 eGFR 131 mL/min/1.73m2 > OR = 60 BUN/CREATININE RATIO NOT APPLICABLE (calc) 6-22 SODIUM 128 mmol/L 135-146 POTASSIUM 4.5 mmol/L 3.5-5.3 CHLORIDE 93 mmol/L 98-110 CARBON DIOXIDE 28 mmol/L 20-32 CALCIUM 9.4 mg/dL 8.6-10.3 PROTEIN, TOTAL 6.9 g/dL 6.1-8.1 ALBUMIN 4.4 g/dL 3.6-5.1 GLOBULIN 2.5 g/dL (calc) 1.9-3.7 ALBUMIN/GLOBULIN RATIO 1.8 (calc) 1.0-2. 5 BILIRUBIN, TOTAL 0.6 mg/dL 0.2-1.2 ALKALINE PHOSPHATASE 78 U/L 40-115 AST 58 U/L 10-40 ALT 70 U/L 9-46 CBC - 12/14/18 15:18 WHITE BLOOD CELL COUNT 5.8 Thousand/uL 3 .8-10.8 RED BLOOD CELL COUNT 3.98 Million/uL 4.2 0-5.80 HEMOGLOBIN 13.3 g/dL 13.2-17.1 HEMATOCRIT 38.2 % 38.5-50.0 MCV 96.0 fL 80.0-100.0 MCH 33.4 pg 27.0-33.0 MCHC 34.8 g/dL 32.0-36.0 RDW 12.8 % 11.0-15.0 PLATELET COUNT 215 Thousand/uL 140-400 MPV 9.7 fL 7.5-12.5 ABSOLUTE NEUTROPHILS 1920 cells/uL 1500- 7800 ABSOLUTE LYMPHOCYTES 2558 cells/uL 850-3 900 ABSOLUTE MONOCYTES 1125 cells/uL 200-950 ABSOLUTE EOSINOPHILS 128 cells/uL 15-500 ABSOLUTE BASOPHILS 70 cells/uL 0-200 NEUTROPHILS 33.1 % NRG LYMPHOCYTES 44.1 % NRG MONOCYTES 19.4 % NRG EOSINOPHILS 2.2 % NRG BASOPHILS 1.2 % NRG PDM - 09 PANEL (PROFILE 1) - 12/14/18 15 :18 Prescribed Drug 1 Tramadol NRG Creatinine 63.9 mg/dL > or = 20.0 pH 6.91 4.5 - 9.0 Oxidant NEGATIVE mcg/mL <200 Amphetamines NEGATIVE ng/mL <500 medMATCH Amphetamines CONSISTENT NRG Benzodiazepines NEGATIVE ng/mL <100 medMATCH Benzodiazepines CONSISTENT NRG Marijuana Metabolite NEGATIVE ng/mL <20 medMATCH Marijuana Metab CONSISTENT NRG Cocaine Metabolite NEGATIVE ng/mL <150 medMATCH Cocaine Metab CONSISTENT NRG Opiates NEGATIVE ng/mL <100 medMATCH Opiates CONSISTENT NRG Oxycodone NEGATIVE ng/mL <100 medMATCH Oxycodone CONSISTENT NRG COMMENT NRG Barbiturates NEGATIVE ng/mL <300 medMATCH Barbiturates CONSISTENT NRG Methadone Metabolite NEGATIVE ng/mL <100 medMATCH Methadone Metab CONSISTENT NRG Phencyclidine NEGATIVE ng/mL <25 medMATCH Phencyclidine CONSISTENT NRG PDM - ATS (PROFILE 8 WITH CONFIRMATION) - 12/28/18 11:17 Creatinine 80.9 mg/dL > or = 20.0 pH 6.92 4.5 - 9.0 Oxidant NEGATIVE mcg/mL <200 Amphetamines NEGATIVE ng/mL <500 medMATCH Amphetamines CONSISTENT NRG Benzodiazepines NEGATIVE ng/mL <100 medMATCH Benzodiazepines CONSISTENT NRG Marijuana Metabolite NEGATIVE ng/mL <20 medMATCH Marijuana Metab CONSISTENT NRG Cocaine Metabolite NEGATIVE ng/mL <150 medMATCH Cocaine Metab CONSISTENT NRG Opiates NEGATIVE ng/mL <100 medMATCH Opiates CONSISTENT NRG Oxycodone NEGATIVE ng/mL <100 medMATCH Oxycodone CONSISTENT NRG COMMENT NRG Buprenorphine NEGATIVE ng/mL <5 MDMA NEGATIVE ng/mL <500 medMATCH MDMA CONSISTENT NRG Alcohol Metabolites NEGATIVE ng/mL <500 medMATCH Alcohol Metab CONSISTENT NRG 6 Acetylmorphine NEGATIVE ng/mL <10 medMATCH 6 Acetylmorphine CONSISTENT NR G medMATCH Buprenorphine CONSISTENT NRG PDM - AMPHETAMINES W/ REFLEX d/l ISOMERS - 12/28/18 11:17 COMMENT NRG Amphetamine NEGATIVE ng/mL <250 medMATCH Amphetamine CONSISTENT NRG Methamphetamine NEGATIVE ng/mL <250 medMATCH Methamphetamine CONSISTENT NRG HEP C, GENOTYPE-APPROVAL REQUIRED - 10/27 10:18 HEPATITIS C VIRAL RNA GENOTYPE, LIPA(R) 1a NRG HCV RNA, QUANTITATIVE REAL TIME PCR - 10:18 HCV RNA, QUANTITATIVE REAL TIME PCR [id number] IU/mL NOT DETECTED HCV RNA, QUANTITATIVE REAL TIME PCR 6.58 Log IU/mL NOT DETECTED COMMENT NRG HEP C, FIBROSURE (INSURED ONLY)-APPROVAL REQUIRED - 01/14/19 10:24 FIBROSIS SCORE 0.35 NRG FIBROSIS STAGE F1-F2 NRG FIBROSIS INTERPRETATION SEE NOTE NRG NECROINFLAMMAT ACT SCORE 0.47 NRG NECROINFLAMMAT ACT GRADE A1-A2 NRG NECROINFLAMMAT INTERP SEE NOTE NRG ALPHA 2 MACROGLOBULIN 300 mg/dL 106-279 HAPTOGLOBIN 162 mg/dL 43-212 APOLIPOPROTEIN A1 181 mg/dL 94-176 TOTAL BILIRUBIN 0.6 mg/dL 0.2-1.2 GGT 67 U/L 3-95 ALT 76 U/L 9-46 REFERENCE ID [id number] NRG FOOTNOTE SEE NOTE NRG PDM - AMPHETAMINES W/ REFLEX d/l ISOMERS - 01/14/19 12:36 COMMENT NRG Prescribed Drug 2 Tramadol NRG Amphetamine NEGATIVE ng/mL <250 medMATCH Amphetamine CONSISTENT NRG Methamphetamine NEGATIVE ng/mL <250 medMATCH Methamphetamine CONSISTENT NRG Complete blood count (CBC) with automate d white blood cell (WBC) differential - 01/26/19 14:20 Blood leukocytes automated count (number/volume) 6.6 10*3/uL 4.3-11.0 Blood erythrocytes automated count (number/volume) 4.37 10*6/uL 4.35-5.85 Venous blood hemoglobin measurement (mass/volume) 14.5 g/dL 13.3-17.7 Blood hematocrit (volume fraction) 41 % 40-54 Automated erythrocyte mean corpuscular volume 93 [ foz_us] 80-99 Automated erythrocyte mean corpuscular h emoglobin (mass per erythrocyte) 33 pg 25-34 Automated erythrocyte mean corpuscular h emoglobin concentration measurement (mass/volume) 36 g/dL 32-36 Automated erythrocyte distribution width ratio 12. 5 % 10.0- 14.5 Automated blood platelet count (count/volume) 206 10*3/uL 130-400 Automated blood platelet mean volume measurement 9.6 [foz_us] 7.4-10.4 Automated blood neutrophils/100 leukocytes 49 % 42-75 Automated blood lymphocytes/100 leukocytes 31 % 12-44 Blood monocytes/100 leukocytes 18 % 0-12 Automated blood eosinophils/100 leukocytes 1 % 0-10 Automated blood basophils/100 leukocytes 1 % 0-10 Blood neutrophils automated count (number/volume) 3.3 10*3 1.8-7.8 Blood lymphocytes automated count (number/volume) 2.1 10*3 1.0-4.0 Blood monocytes automated count (number/volume) 1. 2 10*3 0.0-1.0 Automated eosinophil count 0.1 10*3/uL 0 .0-0.3 Automated blood basophil count (count/volume) 0.0 10*3/uL 0.0-0.1 Blood lactic acid measurement (moles/vol ume) - 01/26/19 14:20 Blood lactic acid measurement (moles/volume) 1.17 mmol/L 0.50-2.00 PT panel in platelet poor plasma by coag ulation assay - 01/26/19 14:20 Prothrombin time (PT) in platelet poor plasma by coagu lation assay 15.5 s 12.2-14.7 INR in platelet poor plasma or blood by coagulation as say 1.2 0.8-1.4 Activated partial thromboplastin time (a PTT) in platelet poor plasma bycoagulation assay - 01/26/19 14:20 Activated partial thromboplastin time (a PTT) in platelet poor plasma bycoagulation assay 26 s 24-35 Fibrin D-dimer FEU measurement in platel et poor plasma (mass/volume) - 01/26/19 14:20 Fibrin D-dimer FEU measurement in platelet poor plasma (mass/volume) 0.51 ug/mL 0.00-0.49 Comprehensive metabolic panel - 01/26/19 14:20 Serum or plasma sodium measurement (moles/volume) 125 mmol/L 135-145 Serum or plasma potassium measurement (moles/volume) 4.4 mmol/L 3.6-5.0 Serum or plasma chloride measurement (moles/volume) 92 mmol/L 98-107 Carbon dioxide 27 mmol/L 21-32 Serum or plasma anion gap determination (moles/volume) 6 mmol/L 5-14 Serum or plasma urea nitrogen measurement (mass/volume ) 10 mg/dL 7-18 Serum or plasma creatinine measurement (mass/volume) 0.71 mg/dL 0.60-1.30 Serum or plasma urea nitrogen/creatinine mass ratio 14 NRG Serum or plasma creatinine measurement w ith calculation of estimated glomerular filtration rate > NRG Serum or plasma glucose measurement (mass/volume) 87 mg/dL 70-105 Serum or plasma calcium measurement (mass/volume) 9.2 mg/dL 8.5-10.1 Serum or plasma total bilirubin measurement (mass/volu me) 0.8 mg/dL 0.1-1.0 Serum or plasma alkaline phosphatase shakir surement (enzymatic activity/volume) 94 U/L 40-136 Serum or plasma aspartate aminotransfera se measurement (enzymatic activity/volume) 75 U/L 5-34 Serum or plasma alanine aminotransferase measurement (enzymatic activity/volume) 115 U/L 0-55 Serum or plasma protein measurement (mass/volume) 7.2 g/dL 6.4-8.2 Serum or plasma albumin measurement (mass/volume) 4.1 g/dL 3.2-4.5 CALCIUM CORRECTED 9.1 mg/dL 8.5-10.1 Erythrocyte sedimentation rate by leann gren method - 01/26/19 14:20 Erythrocyte sedimentation rate by westergren method 5 mm 0- 15 Serum or plasma C reactive protein measu rement (mass/volume) - 01/26/19 14:20 Serum or plasma C reactive protein measurement (mass/v olume) 1.42 mg/dL 0.00-0.50 Bacterial blood culture - 01/26/19 14:20 Bacterial blood culture NG NR Bacterial blood culture - 01/26/19 14:44 Bacterial blood culture NG NR Complete blood count (CBC) with automate d white blood cell (WBC) differential - 01/27/19 04:54 Blood leukocytes automated count (number/volume) 5.1 10*3/uL 4.3-11.0 Blood erythrocytes automated count (number/volume) 3.96 10*6/uL 4.35-5.85 Venous blood hemoglobin measurement (mass/volume) 13.3 g/dL 13.3-17.7 Blood hematocrit (volume fraction) 37 % 40-54 Automated erythrocyte mean corpuscular volume 94 [ foz_us] 80-99 Automated erythrocyte mean corpuscular h emoglobin (mass per erythrocyte) 34 pg 25-34 Automated erythrocyte mean corpuscular h emoglobin concentration measurement (mass/volume) 36 g/dL 32-36 Automated erythrocyte distribution width ratio 12. 1 % 10.0- 14.5 Automated blood platelet count (count/volume) 170 10*3/uL 130-400 Automated blood platelet mean volume measurement 9.6 [foz_us] 7.4-10.4 Automated blood neutrophils/100 leukocytes 35 % 42-75 Automated blood lymphocytes/100 leukocytes 39 % 12-44 Blood monocytes/100 leukocytes 22 % 0-12 Automated blood eosinophils/100 leukocytes 4 % 0-10 Automated blood basophils/100 leukocytes 1 % 0-10 Blood neutrophils automated count (number/volume) 1.8 10*3 1.8-7.8 Blood lymphocytes automated count (number/volume) 2.0 10*3 1.0-4.0 Blood monocytes automated count (number/volume) 1. 1 10*3 0.0-1.0 Automated eosinophil count 0.2 10*3/uL 0 .0-0.3 Automated blood basophil count (count/volume) 0.0 10*3/uL 0.0-0.1 Comprehensive metabolic panel - 01/27/19 04:54 Serum or plasma sodium measurement (moles/volume) 127 mmol/L 135-145 Serum or plasma potassium measurement (moles/volume) 4.5 mmol/L 3.6-5.0 Serum or plasma chloride measurement (moles/volume) 96 mmol/L 98-107 Carbon dioxide 22 mmol/L 21-32 Serum or plasma anion gap determination (moles/volume) 9 mmol/L 5-14 Serum or plasma urea nitrogen measurement (mass/volume ) 12 mg/dL 7-18 Serum or plasma creatinine measurement (mass/volume) 0.70 mg/dL 0.60-1.30 Serum or plasma urea nitrogen/creatinine mass ratio 17 NRG Serum or plasma creatinine measurement w ith calculation of estimated glomerular filtration rate > NRG Serum or plasma glucose measurement (mass/volume) 99 mg/dL 70-105 Serum or plasma calcium measurement (mass/volume) 8.9 mg/dL 8.5-10.1 Serum or plasma total bilirubin measurement (mass/volu me) 0.6 mg/dL 0.1-1.0 Serum or plasma alkaline phosphatase shakir surement (enzymatic activity/volume) 76 U/L 40-136 Serum or plasma aspartate aminotransfera se measurement (enzymatic activity/volume) 68 U/L 5-34 Serum or plasma alanine aminotransferase measurement (enzymatic activity/volume) 98 U/L 0-55 Serum or plasma protein measurement (mass/volume) 6.0 g/dL 6.4-8.2 Serum or plasma albumin measurement (mass/volume) 3.6 g/dL 3.2-4.5 CALCIUM CORRECTED 9.2 mg/dL 8.5-10.1 Manual absolute plasma cell count - 01/09 01/27 04:54 Blood monocytes/100 leukocytes 19 % NRG Manual blood segmented neutrophils/100 leukocytes 30 % NRG Blood band neutrophils/100 leukocytes 1 % NRG Manual blood lymphocytes/100 leukocytes 41 % NRG Manual eosinophils/100 leukocytes in nose 8 % NRG Manual blood basophils/100 leukocytes 1 % NRG Blood erythrocyte morphology finding identification NORMAL NRG Complete blood count (CBC) with automate d white blood cell (WBC) differential - 01/28/19 04:13 Blood leukocytes automated count (number/volume) 5.3 10*3/uL 4.3-11.0 Blood erythrocytes automated count (number/volume) 4.07 10*6/uL 4.35-5.85 Venous blood hemoglobin measurement (mass/volume) 13.5 g/dL 13.3-17.7 Blood hematocrit (volume fraction) 39 % 40-54 Automated erythrocyte mean corpuscular volume 95 [ foz_us] 80-99 Automated erythrocyte mean corpuscular h emoglobin (mass per erythrocyte) 33 pg 25-34 Automated erythrocyte mean corpuscular h emoglobin concentration measurement (mass/volume) 35 g/dL 32-36 Automated erythrocyte distribution width ratio 12. 5 % 10.0- 14.5 Automated blood platelet count (count/volume) 197 10*3/uL 130-400 Automated blood platelet mean volume measurement 9.0 [foz_us] 7.4-10.4 Automated blood neutrophils/100 leukocytes 53 % 42-75 Automated blood lymphocytes/100 leukocytes 24 % 12-44 Blood monocytes/100 leukocytes 19 % 0-12 Automated blood eosinophils/100 leukocytes 3 % 0-10 Automated blood basophils/100 leukocytes 1 % 0-10 Blood neutrophils automated count (number/volume) 2.9 10*3 1.8-7.8 Blood lymphocytes automated count (number/volume) 1.3 10*3 1.0-4.0 Blood monocytes automated count (number/volume) 1. 0 10*3 0.0-1.0 Automated eosinophil count 0.2 10*3/uL 0 .0-0.3 Automated blood basophil count (count/volume) 0.0 10*3/uL 0.0-0.1 Comprehensive metabolic panel - 01/28/19 04:13 Serum or plasma sodium measurement (moles/volume) 132 mmol/L 135-145 Serum or plasma potassium measurement (moles/volume) 4.7 mmol/L 3.6-5.0 Serum or plasma chloride measurement (moles/volume) 97 mmol/L 98-107 Carbon dioxide 28 mmol/L 21-32 Serum or plasma anion gap determination (moles/volume) 7 mmol/L 5-14 Serum or plasma urea nitrogen measurement (mass/volume ) 8 mg/dL 7-18 Serum or plasma creatinine measurement (mass/volume) 0.80 mg/dL 0.60-1.30 Serum or plasma urea nitrogen/creatinine mass ratio 10 NRG Serum or plasma creatinine measurement w ith calculation of estimated glomerular filtration rate > NRG Serum or plasma glucose measurement (mass/volume) 122 mg/dL 70-105 Serum or plasma calcium measurement (mass/volume) 8.8 mg/dL 8.5-10.1 Serum or plasma total bilirubin measurement (mass/volu me) 0.5 mg/dL 0.1-1.0 Serum or plasma alkaline phosphatase shakir surement (enzymatic activity/volume) 87 U/L 40-136 Serum or plasma aspartate aminotransfera se measurement (enzymatic activity/volume) 95 U/L 5-34 Serum or plasma alanine aminotransferase measurement (enzymatic activity/volume) 122 U/L 0-55 Serum or plasma protein measurement (mass/volume) 6.1 g/dL 6.4-8.2 Serum or plasma albumin measurement (mass/volume) 3.6 g/dL 3.2-4.5 CALCIUM CORRECTED 9.1 mg/dL 8.5-10.1 Vancomycin trough - 01/28/19 04:13 Vancomycin trough 16.0 ug/mL 10.0-20.0 PDM - AMPHETAMINES W/ REFLEX d/l ISOMERS - 02/02/19 11:57 Prescribed Drug 1 Oxycodone NRG COMMENT NRG Amphetamine NEGATIVE ng/mL <250 medMATCH Amphetamine CONSISTENT NRG Methamphetamine NEGATIVE ng/mL <250 medMATCH Methamphetamine CONSISTENT NRG Complete urinalysis with reflex to cultu re - 02/15/19 05:45 Urine color determination RED NRG Urine clarity determination BLOODY NR G Urine pH measurement by test strip 8 5-9 Specific gravity of urine by test strip 1.015 1.016-1.022 Urine protein assay by test strip, semi-quantitative 4+ NEGATIVE Urine glucose detection by automated test strip NE GATIVE NEGATIVE Erythrocytes detection in urine sediment by light micr oscopy 5+ NEGATIVE Urine ketones detection by automated test strip 1+ NEGATIVE Urine nitrite detection by test strip NEGATIVE NEGATIVE Urine total bilirubin detection by test strip NEGA TIVE NEGATIVE Urine urobilinogen measurement by automated test strip (mass/volume) NORMAL NORMAL Urine leukocyte esterase detection by dipstick NEG ATIVE NEGATIVE Automated urine sediment erythrocyte cou nt by microscopy (number/high power field) TNTC NRG Automated urine sediment leukocyte count by microscopy (number/high power field) RARE NRG Bacteria detection in urine sediment by light microsco py NEGATIVE NRG Squamous epithelial cells detection in u rine sediment by light microscopy RARE NRG Crystals detection in urine sediment by light microsco py NONE NRG Casts detection in urine sediment by light microscopy NONE NRG Mucus detection in urine sediment by light microscopy NEGATIVE NRG Complete urinalysis with reflex to culture NO NRG Complete blood count (CBC) with automate d white blood cell (WBC) differential - 02/15/19 06:10 Blood leukocytes automated count (number/volume) 6.7 10*3/uL 4.3-11.0 Blood erythrocytes automated count (number/volume) 4.49 10*6/uL 4.35-5.85 Venous blood hemoglobin measurement (mass/volume) 14.7 g/dL 13.3-17.7 Blood hematocrit (volume fraction) 41 % 40-54 Automated erythrocyte mean corpuscular volume 90 [ foz_us] 80-99 Automated erythrocyte mean corpuscular h emoglobin (mass per erythrocyte) 33 pg 25-34 Automated erythrocyte mean corpuscular h emoglobin concentration measurement (mass/volume) 36 g/dL 32-36 Automated erythrocyte distribution width ratio 12. 0 % 10.0- 14.5 Automated blood platelet count (count/volume) 246 10*3/uL 130-400 Automated blood platelet mean volume measurement 9.2 [foz_us] 7.4-10.4 Automated blood neutrophils/100 leukocytes 47 % 42-75 Automated blood lymphocytes/100 leukocytes 33 % 12-44 Blood monocytes/100 leukocytes 17 % 0-12 Automated blood eosinophils/100 leukocytes 2 % 0-10 Automated blood basophils/100 leukocytes 1 % 0-10 Blood neutrophils automated count (number/volume) 3.2 10*3 1.8-7.8 Blood lymphocytes automated count (number/volume) 2.2 10*3 1.0-4.0 Blood monocytes automated count (number/volume) 1. 1 10*3 0.0-1.0 Automated eosinophil count 0.1 10*3/uL 0 .0-0.3 Automated blood basophil count (count/volume) 0.0 10*3/uL 0.0-0.1 Comprehensive metabolic panel - 02/15/19 06:10 Serum or plasma sodium measurement (moles/volume) 126 mmol/L 135-145 Serum or plasma potassium measurement (moles/volume) 4.6 mmol/L 3.6-5.0 Serum or plasma chloride measurement (moles/volume) 92 mmol/L 98-107 Carbon dioxide 23 mmol/L 21-32 Serum or plasma anion gap determination (moles/volume) 11 mmol/L 5-14 Serum or plasma urea nitrogen measurement (mass/volume ) 12 mg/dL 7-18 Serum or plasma creatinine measurement (mass/volume) 0.82 mg/dL 0.60-1.30 Serum or plasma urea nitrogen/creatinine mass ratio 15 NRG Serum or plasma creatinine measurement w ith calculation of estimated glomerular filtration rate > NRG Serum or plasma glucose measurement (mass/volume) 140 mg/dL 70-105 Serum or plasma calcium measurement (mass/volume) 9.5 mg/dL 8.5-10.1 Serum or plasma total bilirubin measurement (mass/volu me) 0.9 mg/dL 0.1-1.0 Serum or plasma alkaline phosphatase shakir surement (enzymatic activity/volume) 104 U/L 40-136 Serum or plasma aspartate aminotransfera se measurement (enzymatic activity/volume) 160 U/L 5-34 Serum or plasma alanine aminotransferase measurement (enzymatic activity/volume) 282 U/L 0-55 Serum or plasma protein measurement (mass/volume) 7.3 g/dL 6.4-8.2 Serum or plasma albumin measurement (mass/volume) 4.2 g/dL 3.2-4.5 CALCIUM CORRECTED 9.3 mg/dL 8.5-10.1 PDM - AMPHETAMINES W/ REFLEX d/l ISOMERS - 02/21/19 12:18 Prescribed Drug 1 Tramadol NRG COMMENT NRG Amphetamine NEGATIVE ng/mL <250 medMATCH Amphetamine CONSISTENT NRG Methamphetamine NEGATIVE ng/mL <250 medMATCH Methamphetamine CONSISTENT NRG GC/CHLAMYDIA (SWAB OR URINE)-RAPID - 08/27 09:38 CHLAMYDIA TRACHOMATIS RNA, TMA NOT DETECTED NOT DETECTED NEISSERIA GONORRHOEAE RNA, TMA NOT DETECTED NOT DETECTED COMMENT NRG CMP - 03/21/19 11:37 GLUCOSE 106 mg/dL 65-99 UREA NITROGEN (BUN) 12 mg/dL 7-25 CREATININE 0.71 mg/dL 0.60-1.35 eGFR NON-AFR. MICRONESIAN 113 mL/min/1.73m2 > OR = 60 eGFR 131 mL/min/1.73m2 > OR = 60 BUN/CREATININE RATIO NOT APPLICABLE (calc) 6-22 SODIUM 130 mmol/L 135-146 POTASSIUM 5.1 mmol/L 3.5-5.3 CHLORIDE 93 mmol/L 98-110 CARBON DIOXIDE 29 mmol/L 20-32 CALCIUM 9.4 mg/dL 8.6-10.3 PROTEIN, TOTAL 6.8 g/dL 6.1-8.1 ALBUMIN 4.1 g/dL 3.6-5.1 GLOBULIN 2.7 g/dL (calc) 1.9-3.7 ALBUMIN/GLOBULIN RATIO 1.5 (calc) 1.0-2. 5 BILIRUBIN, TOTAL 0.6 mg/dL 0.2-1.2 ALKALINE PHOSPHATASE 80 U/L 40-115 AST 15 U/L 10-40 ALT 12 U/L 9-46 CBC - 03/21/19 11:37 WHITE BLOOD CELL COUNT 6.7 Thousand/uL 3 .8-10.8 RED BLOOD CELL COUNT 4.28 Million/uL 4.2 0-5.80 HEMOGLOBIN 14.7 g/dL 13.2-17.1 HEMATOCRIT 41.1 % 38.5-50.0 MCV 96.0 fL 80.0-100.0 MCH 34.3 pg 27.0-33.0 MCHC 35.8 g/dL 32.0-36.0 RDW 12.5 % 11.0-15.0 PLATELET COUNT 274 Thousand/uL 140-400 MPV 10.1 fL 7.5-12.5 ABSOLUTE NEUTROPHILS 2801 cells/uL 1500- 7800 ABSOLUTE LYMPHOCYTES 2774 cells/uL 850-3 900 ABSOLUTE MONOCYTES 864 cells/uL 200-950 ABSOLUTE EOSINOPHILS 201 cells/uL 15-500 ABSOLUTE BASOPHILS 60 cells/uL 0-200 NEUTROPHILS 41.8 % NRG LYMPHOCYTES 41.4 % NRG MONOCYTES 12.9 % NRG EOSINOPHILS 3.0 % NRG BASOPHILS 0.9 % NRG HEP C PCR QUANT (Graph)-APPROVAL REQUIRE D - 03/21/19 11:37 HCV RNA, QUANTITATIVE REAL TIME PCR <15 NOT DETECT ED IU/mL NOT DETECTED HCV RNA, QUANTITATIVE REAL TIME PCR <1.18 NO T DETECTED Log IU/mL NOT DETECTED Complete urinalysis with reflex to cultu re - 03/28/19 14:05 Urine color determination YELLOW NRG Urine clarity determination CLOUDY NR G Urine pH measurement by test strip 8.0 5-9 Specific gravity of urine by test strip 1.015 1.016-1.022 Urine protein assay by test strip, semi-quantitative 1+ NEGATIVE Urine glucose detection by automated test strip NE GATIVE NEGATIVE Erythrocytes detection in urine sediment by light micr oscopy TRACE-I NEGATIVE Urine ketones detection by automated test strip NE GATIVE NEGATIVE Urine nitrite detection by test strip NEGATIVE NEGATIVE Urine total bilirubin detection by test strip NEGA TIVE NEGATIVE Urine urobilinogen measurement by automated test strip (mass/volume) 1.0 mg/dL < = 1.0 Urine leukocyte esterase detection by dipstick 3+ NEGATIVE Automated urine sediment erythrocyte cou nt by microscopy (number/high power field) [HPF] NRG Automated urine sediment leukocyte count by microscopy (number/high power field) TNTC NRG Bacteria detection in urine sediment by light microsco py MODERATE NRG Squamous epithelial cells detection in u rine sediment by light microscopy 0-2 NRG Crystals detection in urine sediment by light microsco py NONE NRG Casts detection in urine sediment by light microscopy NONE NRG Mucus detection in urine sediment by light microscopy NEGATIVE NRG Complete urinalysis with reflex to culture YES NRG Bacterial urine culture - 03/28/19 14:05 Bacterial urine culture [id number] NRG COLONY COUNT >100,000/ML NRG FTX;REPORTABLE SUSCEPTIBILITY REPORTED 03/30/19 11 :15 NRG Dirithromycin susceptibility test by dis k diffusion - 03/28/19 14:05 Gentamicin susceptibility test by minimum inhibitory c oncentration <= NRG Levofloxacin susceptibility test by minimum inhibitory concentration <= NRG Ampicillin susceptibility test by minimum inhibitory c oncentration > NRG Cefazolin susceptibility test by minimum inhibitory co ncentration > NRG Ceftriaxone susceptibility test by minimum inhibitory concentration <= NRG Ciprofloxacin susceptibility test by minimum inhibitor y concentration 1 NRG Meropenem susceptibility test by minimum inhibitory co ncentration <= NRG Nitrofurantoin susceptibility test by mi nimum inhibitory concentration > NRG Amoxicillin and clavulanate potassium susc LINDA > NRG Complete blood count (CBC) with automate d white blood cell (WBC) differential - 03/28/19 14:12 Blood leukocytes automated count (number/volume) 7.4 10*3/uL 4.3-11.0 Blood erythrocytes automated count (number/volume) 4.22 10*6/uL 4.35-5.85 Venous blood hemoglobin measurement (mass/volume) 14.1 g/dL 13.3-17.7 Blood hematocrit (volume fraction) 38 % 40-54 Automated erythrocyte mean corpuscular volume 90 [ foz_us] 80-99 Automated erythrocyte mean corpuscular h emoglobin (mass per erythrocyte) 33 pg 25-34 Automated erythrocyte mean corpuscular h emoglobin concentration measurement (mass/volume) 37 g/dL 32-36 Automated erythrocyte distribution width ratio 11. 7 % 10.0- 14.5 Automated blood platelet count (count/volume) 230 10*3/uL 130-400 Automated blood platelet mean volume measurement 9.1 [foz_us] 7.4-10.4 Automated blood neutrophils/100 leukocytes 57 % 42-75 Automated blood lymphocytes/100 leukocytes 27 % 12-44 Blood monocytes/100 leukocytes 14 % 0-12 Automated blood eosinophils/100 leukocytes 1 % 0-10 Automated blood basophils/100 leukocytes 0 % 0-10 Blood neutrophils automated count (number/volume) 4.2 10*3 1.8-7.8 Blood lymphocytes automated count (number/volume) 2.0 10*3 1.0-4.0 Blood monocytes automated count (number/volume) 1. 1 10*3 0.0-1.0 Automated eosinophil count 0.1 10*3/uL 0 .0-0.3 Automated blood basophil count (count/volume) 0.0 10*3/uL 0.0-0.1 Comprehensive metabolic panel - 03/28/19 14:12 Serum or plasma sodium measurement (moles/volume) 131 mmol/L 135-145 Serum or plasma potassium measurement (moles/volume) 4.5 mmol/L 3.6-5.0 Serum or plasma chloride measurement (moles/volume) 95 mmol/L 98-107 Carbon dioxide 27 mmol/L 21-32 Serum or plasma anion gap determination (moles/volume) 9 mmol/L 5-14 Serum or plasma urea nitrogen measurement (mass/volume ) 7 mg/dL 7-18 Serum or plasma creatinine measurement (mass/volume) 0.68 mg/dL 0.60-1.30 Serum or plasma urea nitrogen/creatinine mass ratio 10 NRG Serum or plasma creatinine measurement w ith calculation of estimated glomerular filtration rate > NRG Serum or plasma glucose measurement (mass/volume) 136 mg/dL 70-105 Serum or plasma calcium measurement (mass/volume) 9.5 mg/dL 8.5-10.1 Serum or plasma total bilirubin measurement (mass/volu me) 0.6 mg/dL 0.1-1.0 Serum or plasma alkaline phosphatase shakir surement (enzymatic activity/volume) 91 U/L 40-136 Serum or plasma aspartate aminotransfera se measurement (enzymatic activity/volume) 18 U/L 5-34 Serum or plasma alanine aminotransferase measurement (enzymatic activity/volume) 14 U/L 0-55 Serum or plasma protein measurement (mass/volume) 7.5 g/dL 6.4-8.2 Serum or plasma albumin measurement (mass/volume) 4.2 g/dL 3.2-4.5 CALCIUM CORRECTED 9.3 mg/dL 8.5-10.1 Serum or plasma amylase measurement (enz ymatic activity/volume) - 03/28/19 14:12 Serum or plasma amylase measurement (enzymatic activit y/volume) 29 U/L 25-125 Lipase - 03/28/19 14:12 Lipase 136 U/L 8-78 Complete blood count (CBC) with automate d white blood cell (WBC) differential - 03/29/19 05:38 Blood leukocytes automated count (number/volume) 6.5 10*3/uL 4.3-11.0 Blood erythrocytes automated count (number/volume) 4.07 10*6/uL 4.35-5.85 Venous blood hemoglobin measurement (mass/volume) 13.5 g/dL 13.3-17.7 Blood hematocrit (volume fraction) 37 % 40-54 Automated erythrocyte mean corpuscular volume 91 [ foz_us] 80-99 Automated erythrocyte mean corpuscular h emoglobin (mass per erythrocyte) 33 pg 25-34 Automated erythrocyte mean corpuscular h emoglobin concentration measurement (mass/volume) 37 g/dL 32-36 Automated erythrocyte distribution width ratio 11. 6 % 10.0- 14.5 Automated blood platelet count (count/volume) 203 10*3/uL 130-400 Automated blood platelet mean volume measurement 9.6 [foz_us] 7.4-10.4 Automated blood neutrophils/100 leukocytes 65 % 42-75 Automated blood lymphocytes/100 leukocytes 19 % 12-44 Blood monocytes/100 leukocytes 14 % 0-12 Automated blood eosinophils/100 leukocytes 2 % 0-10 Automated blood basophils/100 leukocytes 0 % 0-10 Blood neutrophils automated count (number/volume) 4.2 10*3 1.8-7.8 Blood lymphocytes automated count (number/volume) 1.2 10*3 1.0-4.0 Blood monocytes automated count (number/volume) 0. 9 10*3 0.0-1.0 Automated eosinophil count 0.1 10*3/uL 0 .0-0.3 Automated blood basophil count (count/volume) 0.0 10*3/uL 0.0-0.1 Comprehensive metabolic panel - 03/29/19 05:38 Serum or plasma sodium measurement (moles/volume) 133 mmol/L 135-145 Serum or plasma potassium measurement (moles/volume) 4.1 mmol/L 3.6-5.0 Serum or plasma chloride measurement (moles/volume) 99 mmol/L 98-107 Carbon dioxide 20 mmol/L 21-32 Serum or plasma anion gap determination (moles/volume) 14 mmol/L 5-14 Serum or plasma urea nitrogen measurement (mass/volume ) 7 mg/dL 7-18 Serum or plasma creatinine measurement (mass/volume) 0.65 mg/dL 0.60-1.30 Serum or plasma urea nitrogen/creatinine mass ratio 11 NRG Serum or plasma creatinine measurement w ith calculation of estimated glomerular filtration rate > NRG Serum or plasma glucose measurement (mass/volume) 134 mg/dL 70-105 Serum or plasma calcium measurement (mass/volume) 9.2 mg/dL 8.5-10.1 Serum or plasma total bilirubin measurement (mass/volu me) 0.6 mg/dL 0.1-1.0 Serum or plasma alkaline phosphatase shakir surement (enzymatic activity/volume) 88 U/L 40-136 Serum or plasma aspartate aminotransfera se measurement (enzymatic activity/volume) 16 U/L 5-34 Serum or plasma alanine aminotransferase measurement (enzymatic activity/volume) 13 U/L 0-55 Serum or plasma protein measurement (mass/volume) 6.9 g/dL 6.4-8.2 Serum or plasma albumin measurement (mass/volume) 3.8 g/dL 3.2-4.5 CALCIUM CORRECTED 9.4 mg/dL 8.5-10.1 Serum or plasma amylase measurement (enz ymatic activity/volume) - 03/29/19 05:38 Serum or plasma amylase measurement (enzymatic activit y/volume) 21 U/L 25-125 Lipase - 03/29/19 05:38 Lipase 104 U/L 8-78 Capillary blood glucose measurement by g lucometer (mass/volume) - 03/29/19 16:19 Capillary blood glucose measurement by glucometer (mas s/volume) 191 mg/dL 70-110 Capillary blood glucose measurement by g lucometer (mass/volume) - 03/29/19 20:47 Capillary blood glucose measurement by glucometer (mas s/volume) 175 mg/dL 70-110 Automated blood complete blood count (he mogram) panel - 03/30/19 04:25 Blood leukocytes automated count (number/volume) 5.9 10*3/uL 4.3-11.0 Blood erythrocytes automated count (number/volume) 4.16 10*6/uL 4.35-5.85 Venous blood hemoglobin measurement (mass/volume) 13.6 g/dL 13.3-17.7 Blood hematocrit (volume fraction) 38 % 40-54 Automated erythrocyte mean corpuscular volume 92 [ foz_us] 80-99 Automated erythrocyte mean corpuscular h emoglobin (mass per erythrocyte) 33 pg 25-34 Automated erythrocyte mean corpuscular h emoglobin concentration measurement (mass/volume) 36 g/dL 32-36 Automated erythrocyte distribution width ratio 11. 9 % 10.0- 14.5 Automated blood platelet count (count/volume) 226 10*3/uL 130-400 Automated blood platelet mean volume measurement 9.0 [foz_us] 7.4-10.4 Whole blood basic metabolic panel - 03/12 04:25 Serum or plasma sodium measurement (moles/volume) 135 mmol/L 135-145 Serum or plasma potassium measurement (moles/volume) 3.9 mmol/L 3.6-5.0 Serum or plasma chloride measurement (moles/volume) 103 mmol/L 98-107 Carbon dioxide 21 mmol/L 21-32 Serum or plasma anion gap determination (moles/volume) 11 mmol/L 5-14 Serum or plasma urea nitrogen measurement (mass/volume ) 5 mg/dL 7-18 Serum or plasma creatinine measurement (mass/volume) 0.62 mg/dL 0.60-1.30 Serum or plasma urea nitrogen/creatinine mass ratio 8 NRG Serum or plasma creatinine measurement w ith calculation of estimated glomerular filtration rate > NRG Serum or plasma glucose measurement (mass/volume) 126 mg/dL 70-105 Serum or plasma calcium measurement (mass/volume) 9.3 mg/dL 8.5-10.1 Lipase - 03/30/19 04:25 Lipase 77 U/L 8-78 Capillary blood glucose measurement by g lucometer (mass/volume) - 03/30/19 11:14 Capillary blood glucose measurement by glucometer (mas s/volume) 218 mg/dL 70-110 Hemoglobin A1c measurement - 05/09/19 11 :14 Blood hemoglobin A1C measurement (mass/volume) 5.2 % 4.0-5.6 MEAN BLOOD GLUCOSE 103 % <=126 Prealbumin - 05/09/19 11:14 Serum or plasma prealbumin measurement (mass/volume) 27.8 % 18.0-37.0 HEP C PCR QUANT (Graph)-APPROVAL REQUIRE D - 05/16/19 12:22 HCV RNA, QUANTITATIVE REAL TIME PCR <15 NOT DETECT ED IU/mL NOT DETECTED HCV RNA, QUANTITATIVE REAL TIME PCR <1.18 NO T DETECTED Log IU/mL NOT DETECTED Methicillin resistant Staphylococcus aur eus (MRSA) screening culture - 07/21/19 12:10 Methicillin resistant Staphylococcus aureus (MRSA) scr eening culture NEG NRG Capillary blood glucose measurement by g lucometer (mass/volume) - 07/21/19 13:09 Capillary blood glucose measurement by glucometer (mas s/volume) 107 mg/dL 70-110 Gram stain microscopy - 08/15/19 11:56 Gram stain microscopy No bacteria seen NRG Bacteria identification in wound by cult ure - 08/15/19 11:56 Bacteria identification in wound by culture [id number] NRG FREE TEXT EXTERNAL (CORYNEBACTERIUM SPECIES) NRG QUANTITY OF GROWTH Rare NRG SUSCEPTIBILITY NO SUSCEPTIBILITY PERFORMED NRG MRSA SCREEN SUSCEPTIBILITY REPORTED 08-22-19,1435 NR[place] [facility] [place]:30 [place] CONFIRMATION PRELIM [place] [facility] [place] :30: NRG Dirithromycin susceptibility test by dis k diffusion - 08/15/19 11:56 Oxacillin susceptibility test by minimum inhibitory co ncentration 0.5 NRG Clindamycin susceptibility test by minimum inhibitory concentration <= NRG Erythromycin susceptibility test by minimum inhibitory concentration <= NRG Trimethoprim/sulfamethoxazole susceptibi lity test by minimum inhibitoryconcentration <= NRG Vancomycin susceptibility test by minimum inhibitory c oncentration 1 NRG Levofloxacin susceptibility test by minimum inhibitory concentration <= NRG Rifampin susceptibility test by minimum inhibitory con centration <= NRG Cefazolin susceptibility test by minimum inhibitory co ncentration <= NRG Linezolid susceptibility test by minimum inhibitory co ncentration 2 NRG Penicillin G susceptibility test by minimum inhibitory concentration 1 NRG Moxifloxacin susceptibility test by minimum inhibitory concentration <= NRG Minocycline susc LINDA <= NRG Dirithromycin susceptibility test by dis k diffusion - 08/15/19 11:56 Trimethoprim/sulfamethoxazole susceptibility test by a gar diffusion S NRG Ampicillin susceptibility test by agar diffusion S NRG Ceftriaxone susceptibility test by agar diffusion S NRG Erythromycin susceptibility test by agar diffusion R NRG Levofloxacin susceptibility test by agar diffusion S NRG Amoxicillin/clavulanate susceptibility test by agar di ffusion S NRG Complete blood count (CBC) with automate d white blood cell (WBC) differential - 08/22/19 10:35 Blood leukocytes automated count (number/volume) 8.0 10*3/uL 4.3-11.0 Blood erythrocytes automated count (number/volume) 4.55 10*6/uL 4.35-5.85 Venous blood hemoglobin measurement (mass/volume) 15.2 g/dL 13.3-17.7 Blood hematocrit (volume fraction) 42 % 40-54 Automated erythrocyte mean corpuscular volume 93 [ foz_us] 80-99 Automated erythrocyte mean corpuscular h emoglobin (mass per erythrocyte) 33 pg 25-34 Automated erythrocyte mean corpuscular h emoglobin concentration measurement (mass/volume) 36 g/dL 32-36 Automated erythrocyte distribution width ratio 12. 0 % 10.0- 14.5 Automated blood platelet count (count/volume) 299 10*3/uL 130-400 Automated blood platelet mean volume measurement 10.0 [foz_us] 7.4-10.4 Automated blood neutrophils/100 leukocytes 49 % 42-75 Automated blood lymphocytes/100 leukocytes 39 % 12-44 Blood monocytes/100 leukocytes 11 % 0-12 Automated blood eosinophils/100 leukocytes 1 % 0-10 Automated blood basophils/100 leukocytes 0 % 0-10 Blood neutrophils automated count (number/volume) 3.9 10*3 1.8-7.8 Blood lymphocytes automated count (number/volume) 3.1 10*3 1.0-4.0 Blood monocytes automated count (number/volume) 0. 9 10*3 0.0-1.0 Automated eosinophil count 0.1 10*3/uL 0 .0-0.3 Automated blood basophil count (count/volume) 0.0 10*3/uL 0.0-0.1 Comprehensive metabolic panel - 08/22/19 10:35 Serum or plasma sodium measurement (moles/volume) 128 mmol/L 135-145 Serum or plasma potassium measurement (moles/volume) 4.2 mmol/L 3.6-5.0 Serum or plasma chloride measurement (moles/volume) 97 mmol/L 98-107 Carbon dioxide 19 mmol/L 21-32 Serum or plasma anion gap determination (moles/volume) 12 mmol/L 5-14 Serum or plasma urea nitrogen measurement (mass/volume ) 4 mg/dL 7-18 Serum or plasma creatinine measurement (mass/volume) 0.72 mg/dL 0.60-1.30 Serum or plasma urea nitrogen/creatinine mass ratio 6 NRG Serum or plasma creatinine measurement w ith calculation of estimated glomerular filtration rate > NRG Serum or plasma glucose measurement (mass/volume) 165 mg/dL 70-105 Serum or plasma calcium measurement (mass/volume) 9.1 mg/dL 8.5-10.1 Serum or plasma total bilirubin measurement (mass/volu me) 0.4 mg/dL 0.1-1.0 Serum or plasma alkaline phosphatase shakir surement (enzymatic activity/volume) 67 U/L 40-136 Serum or plasma aspartate aminotransfera se measurement (enzymatic activity/volume) 16 U/L 5-34 Serum or plasma alanine aminotransferase measurement (enzymatic activity/volume) 13 U/L 0-55 Serum or plasma protein measurement (mass/volume) 7.3 g/dL 6.4-8.2 Serum or plasma albumin measurement (mass/volume) 4.1 g/dL 3.2-4.5 CALCIUM CORRECTED 9.0 mg/dL 8.5-10.1 Hemoglobin A1c measurement - 08/22/19 10 :35 Blood hemoglobin A1C measurement (mass/volume) 6.2 % 4.0-5.6 MEAN BLOOD GLUCOSE 131 % <=126 Hepatitis C virus RNA viral load by prob e and target amplification method (units/volume) - 08/22/19 10:35 Hepatitis C virus (HCV) RNA viral load m easurement (log number/volume) Not Detected Not Detected HEP C COPIES ML Not Detected Not Detect ed Whole blood basic metabolic panel - 08/10 12:05 Serum or plasma sodium measurement (moles/volume) 129 mmol/L 135-145 Serum or plasma potassium measurement (moles/volume) 4.5 mmol/L 3.6-5.0 Serum or plasma chloride measurement (moles/volume) 96 mmol/L 98-107 Carbon dioxide 23 mmol/L 21-32 Serum or plasma anion gap determination (moles/volume) 10 mmol/L 5-14 Serum or plasma urea nitrogen measurement (mass/volume ) 5 mg/dL 7-18 Serum or plasma creatinine measurement (mass/volume) 0.69 mg/dL 0.60-1.30 Serum or plasma urea nitrogen/creatinine mass ratio 7 NRG Serum or plasma creatinine measurement w ith calculation of estimated glomerular filtration rate > NRG Serum or plasma glucose measurement (mass/volume) 133 mg/dL 70-105 Serum or plasma calcium measurement (mass/volume) 9.0 mg/dL 8.5-10.1 Encounters ACCT No. Visit Date/Time Discharge Status Pt. Type Provider Facility Loc./Unit Complaint [id number] 05/22/2016 13:06:00 Document Registration [id number] 08/29/2010 19:45:00 Document Registration [id number] 08/02/2014 09:39:00 08/02/2014 23:59: 59 CLS Outpatient RACIEL BURROUGHS DO [id number] 08/02/2014 09:39:00 08/02/2014 23:59: 59 CLS Outpatient RACIEL BURROUGHS DO Precious [id number] 04/18/2014 11:06:00 04/18/2014 23:59: 59 CLS Outpatient MELIZA THORNTON APRN Teo [id number] 04/18/2014 11:06:00 04/18/2014 23:59: 59 CLS Outpatient GOLDBERG LAKSHMIANGELLA DERMATOLOGIST AND DERMATOPATHOLOGIST, MELIZA N [id number] 01/03/2014 11:38:00 01/03/2014 23:59: 59 CLS Outpatient GOLDBERG LAKSHMIANGELLA DERMATOLOGIST AND DERMATOPATHOLOGISTAMARAANNA Bruce [id number] 10/04/2013 10:40:00 10/04/2013 23:59: 59 CLS Outpatient GOLDBERG NGUYEN JOSENAMARAANNA Bruce [id number] 09/30/2013 10:53:00 09/30/2013 23:59: 59 CLS Outpatient RACIEL BURROUGHS DO Precious [id number] 08/23/2013 11:28:00 08/23/2013 23:59: 59 CLS Outpatient GOLDBERG LAKSHMIANGELLA DERMATOLOGIST AND DERMATOPATHOLOGIST, MELIZA N [id number] 08/23/2013 11:28:00 08/23/2013 23:59: 59 CLS Outpatient GOLDBERG LAKSHMIANGELLA DERMATOLOGIST AND DERMATOPATHOLOGIST, MELIZA N [id number] 06/07/2013 10:57:00 06/07/2013 23:59: 59 CLS Outpatient YVES BLEVINS MD [id number] 12/09/2012 09:29:00 12/09/2012 23:59: 59 CLS Outpatient MELIZA THORNTON APRN [id number] 06/08/2012 11:34:00 06/08/2012 23:59: 59 CLS Outpatient YVES BLEVINS MD [id number] 04/22/2019 14:00:00 04/22/2019 23:59: 59 CLS Outpatient YVES BLEVINS MD [facility] [id number] 05/16/2019 11:00:00 Document Registration [id number] 03/21/2019 11:00:00 Document Registration [id number] 03/14/2019 08:45:00 Document Registration [id number] 02/21/2019 11:00:00 Document Registration [id number] 02/02/2019 11:00:00 Document Registration [id number] 01/14/2019 10:00:00 Document Registration [id number] 01/14/2019 09:40:00 Document Registration [id number] 12/28/2018 10:00:00 Document Registration [id number] 12/14/2018 14:40:00 Document Registration [id number] 10/29/2018 09:40:00 Document Registration [id number] 10/05/2018 08:00:00 Document Registration [id number] 09/28/2018 08:00:00 Document Registration [id number] 07/02/2018 14:40:00 Document Registration [id number] 05/27/2018 16:20:00 Document Registration [id number] 12/10/2017 10:20:00 Document Registration [id number] 09/05/2019 09:17:00 23:59:59 CLS Outpatient CLAY BRENNAN MD [facility] [id number] 08/29/2019 10:22:00 23:59:59 CLS Outpatient CLAY BRENNAN MD [facility] [id number] 08/22/2019 11:13:00 23:59:59 CLS Outpatient CLAY BRENNAN MD [facility] [id number] 08/22/2019 10:13:00 23:59:59 CLS Outpatient CLAY BRENNAN MD [facility] [id number] 08/15/2019 11:20:00 23:59:59 CLS Outpatient CLAY BRENNAN MD [facility] [id number] 08/01/2019 11:26:00 23:59:59 CLS Outpatient CLAY BRENNAN MD [facility] [id number] 07/21/2019 11:50:00 16:40:00 DIS Outpatient ANSELMO LAN MD [facility] SDC RIGHT THIRD TOE OSTEOMY ELITIS [id number] 07/20/2019 09:13:00 09:44:00 DIS Outpatient ANSELMO LAN MD [facility] PREOP RIGHT THIRD TOE OSTEOMY ELITIS [id number] 07/18/2019 13:25:00 23:59:59 CLS Outpatient CLAY BRENNAN MD [facility] [id number] 07/13/2019 12:54:00 23:59:59 CLS Outpatient CLAY BRENNAN MD [facility] [id number] 06/27/2019 13:14:00 23:59:59 CLS Outpatient YONATAN LUCIO MD [facility] [id number] 06/20/2019 13:15:00 23:59:59 CLS Outpatient YONATAN LUCIO MD [facility] [id number] 06/06/2019 13:35:00 23:59:59 CLS Outpatient ROQUE BAKER MD [facility] [id number] 05/30/2019 13:09:00 23:59:59 CLS Outpatient YONATAN LUCIO MD [facility] [id number] 05/16/2019 12:28:00 23:59:59 CLS Outpatient YONATAN LUCIO MD [facility] [id number] 05/09/2019 11:04:00 23:59:59 CLS Outpatient CLAY BRENNAN MD [facility] LAB TYPE 2 DIABETES WITH FO OT ULCER [id number] 05/09/2019 08:44:00 23:59:59 CLS Outpatient CLAY BRENNAN MD [facility] [id number] 03/29/2019 11:30:00 14:31:00 DIS Inpatient EDWARDS DO, ISAK V [facility] 4TH ILEUS TRANSVERSE COLON,CONSTIPATION,HEPC,UTI [id number] 02/15/2019 05:38:00 08:04:00 DIS Emergency KEVIN ROBB MD [facility] ER BLOOD IN URINE [id number] 01/26/2019 16:23:00 13:30:00 DIS Inpatient EDWARDS DO, ISAK V [facility] 4TH RT FOOT ULCER WITH CELL ULITIS [id number] 09/15/2018 23:00:00 09:56:00 DIS Inpatient EDWARDS ISAK JUAREZ V [facility] 4TH DRUG OVERDOSE- POLYSUBSTANCE;HYPONATREMIA [id number] 09/04/2018 20:46:00 21:55:00 DIS Emergency PAULETTE KAPLAN [facility] ER FALL [id number] 11/04/2017 13:17:00 018 23:59:59 CLS Outpatient CLAY BRENNAN MD [facility] [id number] 10/30/2017 11:16:00 018 23:59:59 CLS Outpatient CLAY BRENNAN MD [facility] [id number] 10/21/2017 13:03:00 018 23:59:59 CLS Outpatient CLAY BRENNAN MD [facility] [id number] 10/14/2017 12:56:00 018 23:59:59 CLS Outpatient CLAY BRENNAN MD [facility] [id number] 10/06/2017 13:53:00 018 23:59:59 CLS Outpatient CLAY BRENNAN MD [facility] [id number] 10/05/2017 14:13:00 018 14:15:00 DIS Emergency KEVIN ROBB MD [facility] ER R FOOT DISCOLORATION [id number] 09/30/2017 14:21:00 23:59:59 CLS Outpatient CLAY BRENNAN MD [facility] LAB E11.621,E11.42 [id number] 09/30/2017 11:49:00 23:59:59 CLS Outpatient CLAY BRENNAN MD [facility] [id number] 09/25/2017 14:07:00 16:36:00 DIS Emergency WERNER DRIVER APRN [facility] ER RIGHT BIG TOE INFECTION [id number] 09/18/2017 11:20:00 16:20:00 DIS Inpatient KRISTINA RODRÍGUEZ MD [facility] 4TH FOOT INFECTION EXCESS B ENZODIAZIPAN ADMIN [id number] 04/26/2015 10:19:00 015 12:00:00 DIS Outpatient SIENA PAEZ MD [facility] [id number] 04/10/2015 12:43:00 015 23:59:59 CLS Outpatient SIENA PAEZ MD [facility] RAD PAD [id number] 04/16/2012 23:32:00 Document Registration [id number] 02/18/2012 10:55:00 Document Registration [id number] 01/10/2011 00:00:00 Document Registration [id number] 12/10/2010 00:00:00 Document Registration [id number] 11/04/2010 12:05:00 Document Registration [id number] 11/03/2010 14:53:00 Document Registration [id number] 10/03/2010 15:10:00 Document Registration [id number] 09/10/2010 09:38:00 Document Registration [id number] 09/04/2010 14:30:00 Document Registration [id number] 09/01/2010 11:50:00 Document Registration [id number] 08/12/2010 19:14:00 Document Registration [id number] 09/16/2017 10:21:00 Document Registration
[2019-09-09 09:04] LABS: ALANINE AMINOTRANSFERASE 15 U/L (0-55); ALBUMIN 4.4 GM/DL (3.2-4.5); ALKALINE PHOSPHATASE 90 U/L (40-136); AMYLASE 15 U/L (25-125); BUN/CREATININE RATIO 5; CALCIUM 9.4 MG/DL (8.5-10.1); CARBON DIOXIDE 21 MMOL/L (21-32); CHLORIDE 94 MMOL/L (98-107); CREATININE SERUM 0.73 MG/DL (0.60-1.30); GFR ESTIMATED > 60; GLUCOSE 162 MG/DL (70-105); LIPASE 14 U/L (8-78); POTASSIUM 3.7 MMOL/L (3.6-5.0); SODIUM 128 MMOL/L (135-145); TOTAL PROTEIN 7.7 GM/DL (6.4-8.2)
--- NOTE | 2019-09-09 09:20 | Diagnostic Imaging Report ---
INDICATION: Left lower quadrant abdominal pain with nausea, vomiting and diarrhea. Time of exam 9:09 AM Comparison is made with prior chest from 01/26/2019. The heart size is stable. There appear to be multiple left-sided healed or healing rib fractures. Lungs appear to be clear. No effusion or pneumothorax is seen. No free air is identified. The bowel gas pattern is nonobstructed. No pathologic calcifications are seen. IMPRESSION: No acute abnormality is detected. Dictated by: Dictated on workstation # [id number]
[2019-09-09] MEDS ORDERED: NS 100 ML (IVPB) BAG IV ONE (09:45)
[2019-09-09] MEDS ORDERED: IOHEXOL 350 MG/ML 100 ML (OMNIPAQUE 350) VIAL IV ONE (09:45)
[2019-09-09] MEDS ORDERED: HOLD METFORMIN - RECEIVED CONTRAST 20 ML VIAL IV SCH (09:45)
[2019-09-09 09:52] LABS: BILIRUBIN,URINE NEGATIVE (NEGATIVE); CLARITY,URINE CLEAR; COLOR,URINE YELLOW; GLUCOSE, URINE (UA) NEGATIVE (NEGATIVE); KETONES,URINE 1+ (NEGATIVE); LEUKOCYTE ESTERASE ,URINE NEGATIVE (NEGATIVE); NITRITE,URINE NEGATIVE (NEGATIVE); PROTEIN,URINE 1+ (NEGATIVE)
[2019-09-09 10:01] LABS: BACTERIA,URINE NEGATIVE /HPF; RBC,URINE 0-2 /HPF; SQUAMOUS EPITHELIAL CELL,UR 0-2 /HPF
[2019-09-09 10:08] LABS: AMPHETAMINE SCREEN, URINE NEGATIVE (NEGATIVE); BARBITURATE SCREEN URINE NEGATIVE (NEGATIVE); BENZODIAZEPINES SCREEN URINE NEGATIVE (NEGATIVE); CANNABINOID SCREEN, URINE POSITIVE (NEGATIVE); COCAINE SCREEN URINE NEGATIVE (NEGATIVE); METHADONE STAT NEGATIVE (NEGATIVE); METHAMPHETAMINE SCREEN URINE S NEGATIVE (NEGATIVE); OPIATE SCREEN URINE NEGATIVE (NEGATIVE); OXYCODONE STAT NEGATIVE (NEGATIVE); PROPOXYPHENE STAT NEGATIVE (NEGATIVE); TRICYCLIC ANTIDEPRESSANTS SCRE POSITIVE (NEGATIVE)
--- NOTE | 2019-09-09 10:20 | Diagnostic Imaging Report ---
PROCEDURE: CT abdomen and pelvis with contrast. TECHNIQUE: Multiple contiguous axial images were obtained through the abdomen and pelvis after administration of intravenous contrast. Auto Exposure Controls were utilized during the CT exam to meet ALARA standards for radiation dose reduction. INDICATION: Left mid abdominal pain. Correlation is made with prior CT from 03/28/2019. The lung bases are clear. Multiple healed lower left rib fractures are again noted. No discrete liver mass is detected. The gallbladder is unremarkable. There is no biliary ductal dilatation. Pancreas does show some fatty atrophic changes. There is some minimal inflammatory changes adjacent to the pancreatic tail. Some minimal underlying pancreatitis cannot be entirely excluded. No organized fluid collection is identified. The spleen is unremarkable. Adrenal glands and kidneys are unremarkable. Aorta is calcified but not aneurysmal. No central retroperitoneal or mesenteric lymphadenopathy is seen. Small and large bowel loops are normal caliber. Appendix is visualized in right lower quadrant. No obstruction is seen. There is no free fluid or fluid collection identified. The bladder is unremarkable. No pelvic lymphadenopathy is seen. IMPRESSION: 1. Mild inflammatory changes are identified in the region of the pancreatic tail, concerning for pancreatitis. This has increased in this region since the CT from 03/28/2019. No pseudocyst formation is seen. 2. No bowel obstruction is identified. Dictated by: Dictated on workstation # [id number]
--- NOTE | 2019-09-09 10:35 | NUR ---
Dr. Mares in room to discuss discharge plans with patient. Patient sleeping. Pt has had to be awakened twice during stay today.
[2019-09-09 10:49] VITALS: BP 212/122
== END 2019-09-09 10:49 | disposition home or self-care (01) ==
LOC: ER 08:22 → EDUNIT# 08:22 → ER 10:49
DX: K86.0 Alcohol-induced chronic pancreatitis (principal); I10 Essential (primary) hypertension; F31.9 Bipolar disorder, unspecified; F20.9 Schizophrenia, unspecified; E11.621 Type 2 diabetes mellitus with foot ulcer; L97.509 Non-pressure chronic ulcer of other part of unspecified foot with unspecified severity; Z89.421 Acquired absence of other right toe(s); Z91.040 Latex allergy status; Z88.8 Allergy status to other drugs, medicaments and biological substances; Z77.22 Contact with and (suspected) exposure to environmental tobacco smoke (acute) (chronic)
CPT/HCPCS: 36415; 74022; 74177; 80053; 80306; 80320; 81000; 82150; 83690; 85025; 85610

== ENCOUNTER → 2019-09-12 | Outpatient (CLI) | payer MEDICARE, MEDICAID | LOC: WOUNDCARE 10:31 | PROVIDERS: ATTEND Surgery | DX: E11.621 Type 2 diabetes mellitus with foot ulcer (principal); E11.42 Type 2 diabetes mellitus with diabetic polyneuropathy; L97.512 Non-pressure chronic ulcer of other part of right foot with fat layer exposed; F20.9 Schizophrenia, unspecified; M86.471 Chronic osteomyelitis with draining sinus, right ankle and foot; Z89.421 Acquired absence of other right toe(s) | CPT/HCPCS: 11042 ==

== ENCOUNTER → 2019-09-19 | Outpatient (CLI) | payer MEDICARE, MEDICAID | LOC: WOUNDCARE 10:24 | PROVIDERS: ATTEND Surgery | DX: E11.621 Type 2 diabetes mellitus with foot ulcer (principal); E11.42 Type 2 diabetes mellitus with diabetic polyneuropathy; L97.512 Non-pressure chronic ulcer of other part of right foot with fat layer exposed; F20.9 Schizophrenia, unspecified; M86.471 Chronic osteomyelitis with draining sinus, right ankle and foot; Z89.421 Acquired absence of other right toe(s); I10 Essential (primary) hypertension | CPT/HCPCS: 11042 ==

== ENCOUNTER → 2019-09-26 | Outpatient (CLI) | payer MEDICARE, MEDICAID | LOC: WOUNDCARE 10:53 | PROVIDERS: ATTEND Surgery | DX: E11.621 Type 2 diabetes mellitus with foot ulcer (principal); E11.42 Type 2 diabetes mellitus with diabetic polyneuropathy; E11.51 Type 2 diabetes mellitus with diabetic peripheral angiopathy without gangrene; L97.512 Non-pressure chronic ulcer of other part of right foot with fat layer exposed; F20.9 Schizophrenia, unspecified; Z89.421 Acquired absence of other right toe(s); I10 Essential (primary) hypertension; F17.200 Nicotine dependence, unspecified, uncomplicated; J44.9 Chronic obstructive pulmonary disease, unspecified; Z79.84 Long term (current) use of oral hypoglycemic drugs | CPT/HCPCS: 99213 ==

== ENCOUNTER 2019-11-30 11:50 | Inpatient (IN) | payer MEDICARE, MEDICAID ==
[~2019-11-30] VITALS: Ht 177.8 cm; Wt 115.0 kg
[2019-11-30] MEDS ORDERED: LACTATED RINGERS 1,000 ML IV STA (11:56)
[2019-11-30] MEDS ORDERED: fentaNYL INJECTION 100 MCG/2 ML AMP IVP STA ×2 (11:56→14:30)
[2019-11-30] MEDS ORDERED: ONDANSETRON 4 MG/2 ML (SDV) Z0FRAN ONE ×2 (11:56→14:30)
[2019-11-30] MEDS ORDERED: fentaNYL INJECTION 100 MCG/2 ML AMP ONE ×2 (11:57→14:30)
[2019-11-30] MEDS ORDERED: ONDANSETRON 4 MG/2 ML (SDV) Z0FRAN IVP ONE ×2 (12:00→14:30)
--- NOTE | 2019-11-30 12:01 | NUR ---
COVID 19 SWAB DONE
--- NOTE | 2019-11-30 12:12 | Diagnostic Imaging Report ---
INDICATION: Abdominal pain and shortness of air. TIME OF EXAM: 11:59 AM Correlation made with prior chest 09/09/2019. Heart size is normal. Lungs are clear. No infiltrates are seen. There is no effusion or pneumothorax. Multiple healed left-sided rib fractures are again noted. IMPRESSION: No acute cardiopulmonary process is detected. Dictated by: Dictated on workstation # [id number]
--- NOTE | 2019-11-30 12:38 | ED Abdominal Pain ---
General Stated Complaint: COVID SYMPTOMS Source of Information: Patient Exam Limitations: No Limitations History of Present Illness Date Seen by Provider: Nov 30, 2019 Time Seen by Provider: 11:54 Initial Comments Here with report of significant upper abdominal pain associated with shortness of breath. Patient lives in [place]. History of methamphetamine abuse, alcoholism and pancreatitis. States that he only drinks alcohol occasionally and not heavy like before. Denies recent methamphetamine abuse but states that he did do an Adderall several days ago. Reports that he's had upper abdominal pain for the last 2 days but it's different than his pancreatitis. That is usually more to the left flank. He is diabetic but has not been checking his blood sugars. Initially stated that he was not taking his medicines but then restated that he hasn't been checking his blood sugars but he has been taking his medicines. Follows at [facility]. Unsure about COVID-19 contacts. Reports that he's had nausea and vomiting for the last 2 days and has been unable to get anything down. He is not able able to keep down water. Timing/Duration: 2-3 Days Severity/Quality: Moderate, Aching Location: Epigastric Radiation: Back, Chest Activities at Onset: None Modifying Factors: Worsens With Eating; Improves With Vomiting Associated Symptoms: Back Pain, Chest Pain, Diaphoresis, Fatigue, Nausea/Vomiting, Shortness of Air, Swelling/Mass in Abdomen, Weakness Allergies and Home Medications Allergies Coded Allergies: latex (Unverified Allergy, Intermediate, 07/20/19) Haloperidol Lactate (Unverified Allergy, Mild, 07/20/19) chlorpromazine HCl (Unverified Allergy, Mild, 07/20/19) haloperidol (Unverified Allergy, Mild, 07/20/19) Home Medications Albuterol Sulfate 18 Gm Hfa.aer.ad, 2 PUFF INH Q4H PRN for SHORTNESS OF BREATH, (Reported) Amitriptyline HCl 100 Mg Tablet, 100 MG PO HS, (Reported) Cariprazine Hydrochloride 4.5 Mg Capsule, 4.5 MG PO DAILY, (Reported) Cephalexin 500 Mg Capsule, 500 MG PO BID Prescribed by: LORRI CALI on 03/30/19 1022 Divalproex Sodium 500 Mg Tablet., 500 MG PO BID, (Reported) Duloxetine HCl 60 Mg Capsule.dr, 60 MG PO DAILY, (Reported) Ledipasvir/Sofosbuvir 1 Each Tablet, 1 TAB PO DAILY, (Reported) FILLED #28 --19 Lisinopril 20 Mg Tablet, 20 MG PO DAILY, (Reported) Metoprolol Succinate 50 Mg Tab.er.24h, 50 MG PO DAILY, (Reported) Ropinirole HCl 3 Mg Tablet, 3 MG PO 1999, (Reported) Tramadol HCl 50 Mg Tablet, 50 MG PO TID PRN for PAIN-MODERATE, (Reported) Trazodone HCl 100 Mg Tablet, 100 MG PO HS, (Reported) Patient Home Medication List Home Medication List Reviewed: Yes Review of Systems Review of Systems Constitutional: see HPI; No chills, No fever EENTM: No Symptoms Reported Respiratory: Denies Cough; Shortness of Air Cardiovascular: Chest Pain; Denies Edema; Lightheadedness Gastrointestinal: Abdominal Pain, Nausea, Vomiting Genitourinary: No Symptoms Reported Musculoskeletal: see HPI; No muscle pain; muscle weakness Skin: no symptoms reported Psychiatric/Neurological: Anxiety, Weakness All Other Systems Reviewed Negative Unless Noted: Yes Past Ifaokap-Wbmarv-Rjawwh Hx Past Med/Social Hx: Reviewed Nursing Past Med/Soc Hx Patient Social History Alcohol Use: Occasionally Uses Alcohol Beverage of Choice: Beer Recreational Drug Use: Yes Drug of Choice: history of METH, Marijuana, Cocaine Smoking Status: Current Everyday Smoker Type Used: Cigarettes 2nd Hand Smoke Exposure: Yes Recent Hopitalizations: Yes Immunizations Up To Date Date of Pneumonia Vaccine: Jan 09, 2019 Date of Influenza Vaccine: Jan 09, 2019 Seasonal Allergies Seasonal Allergies: No Past Medical History Surgeries: Yes (RIGHT HAND, amputation right little toe, AMPUTATION RIGHT BIG TOE) Orthopedic Respiratory: No Currently Using CPAP: No Currently Using BIPAP: No Cardiac: Yes Hypertension Neurological: Yes Headaches /Migraines Reproductive Disorders: No Genitourinary: No Gastrointestinal: No Hepatitis Musculoskeletal: Yes Endocrine: Yes ('was diabetic") HEENT: No Loss of Vision: Denies Hearing Impairment: Denies Cancer: No Psychosocial: Yes (HISTORY OF INTENTIONAL OVERDOSE IN 2003, AND AGAIN 09/15/18) Suicide Attempts, Bipolar, Schizophrenia, Violent Behavior Integumentary: Yes (DIABETIC FOOT ULCER) Blood Disorders: No Adverse Reaction/Blood Tranf: No Family Medical History Reviewed Nursing Family Hx AIDS Alcoholism 19 FATHER 19 MOTHER No Pertinent Family Hx, Other Conditions/Hx Physical Exam Vital Signs Vital Signs - First Documented 11/30/19 11:50 Temp 36.6 Pulse 139 Resp 40 B/P (MAP) 147/109 (122) Pulse Ox 100 O2 Delivery Room Air Capillary Refill : Height/Weight/BMI Height: 5'10.00" Weight: 258lbs. 6.1oz. [id number]; 40.00 BMI Method:Stated General Appearance: WD/WN, moderate distress HEENT: PERRL/EOMI, pharyngeal erythema Neck: full range of motion, supple Respiratory: lungs clear, normal breath sounds Cardiovascular: no murmur, tachycardia Peripheral Pulses: 1+ Dorsalis Pedis (R), 1+ Left Dors-Pedis (L), 1+ Radial Pulses (R), 1+ Radial Pulses (L) Gastrointestinal: soft; No guarding, No rebound; tenderness Extremities: non-tender, normal inspection Back: normal inspection, no CVA tenderness, no vertebral tenderness Neurologic/Psychiatric: alert, oriented x 3 Skin: normal color, warm/dry (You may take Tylenol/acetaminophen 1000 mg every 8 hours as needed for fever or pain. You may take ibuprofen 800 mg every 8 hours as needed for fever or pain. You may use Afrin nasal spray or the generic, 12 hour relief, 2 sprays to each nostril twice daily for 3 days only and then stop. Do not use more than 3 days. Follow-up with your DrTeodoro in a few days for recheck. Drink plenty of fluids. Return for worse pain, fever, vomiting, weakness, breathing problems or other concerns as needed.) Focused Exam Lactate Level 11/30/19 12:35: Lactic Acid Level 1.86 Lactic Acid Level Laboratory Tests Test 11/30/19 12:35 Lactic Acid Level 1.86 MMOL/L (0.50-2.00) Procedures/Interventions Date of ETT Placement: September 15, 2018 Time of ETT Placement: 2230 Progress/Results/Core Measures Results/Orders Lab Results Laboratory Tests Test 11/30/19 12:01 11/30/19 12:35 11/30/19 13:05 11/30/19 14:12 Range/Units White Blood Count 15.0 H 4.3-11.0 10^3/uL Red Blood Count 5.68 4.35-5.85 10^6/uL Hemoglobin 19.1 H 13.3-17.7 G/DL Hematocrit 51 40-54 % Mean Corpuscular Volume 90 80-99 FL Mean Corpuscular Hemoglobin 34 25-34 PG Mean Corpuscular Hemoglobin Concent 37 H 32-36 G/DL Red Cell Distribution Width 11.7 10.0-14.5 % Platelet Count 271 130-400 10^3/uL Mean Platelet Volume 10.5 H 7.4-10.4 FL Neutrophils (%) (Auto) 72 42-75 % Lymphocytes (%) (Auto) 16 12-44 % Monocytes (%) (Auto) 12 0-12 % Eosinophils (%) (Auto) 0 0-10 % Basophils (%) (Auto) 0 0-10 % Neutrophils # (Auto) 10.8 H 1.8-7.8 X 10^3 Lymphocytes # (Auto) 2.4 1.0-4.0 X 10^3 Monocytes # (Auto) 1.8 H 0.0-1.0 X 10^3 Eosinophils # (Auto) 0.1 0.0-0.3 10^3/uL Basophils # (Auto) 0.0 0.0-0.1 10^3/uL Neutrophils % (Manual) 77 % Lymphocytes % (Manual) 11 % Monocytes % (Manual) 8 % Eosinophils % (Manual) 0 % Basophils % (Manual) 0 % Band Neutrophils 4 % Blood Morphology Comment NORMAL Erythrocyte Sedimentation Rate 1 0-15 MM/HR Prothrombin Time 14.9 H 12.2-14.7 SEC INR Comment 1.1 0.8-1.4 Activated Partial Thromboplast Time 24 24-35 SEC D-Dimer 0.32 0.00-0.49 UG/ML Sodium Level 128 L 135-145 MMOL/L Potassium Level 3.9 3.6-5.0 MMOL/L Chloride Level 87 L 98-107 MMOL/L Carbon Dioxide Level 23 21-32 MMOL/L Anion Gap 18 H 5-14 MMOL/L Blood Urea Nitrogen 8 7-18 MG/DL Creatinine 1.02 0.60-1.30 MG/DL Estimat Glomerular Filtration Rate > 60 BUN/Creatinine Ratio 8 Glucose Level 193 H 70-105 MG/DL Lactic Acid Level 1.86 0.50-2.00 MMOL/L Calcium Level 11.1 H 8.5-10.1 MG/DL Corrected Calcium 8.5-10.1 MG/DL Total Bilirubin 1.2 H 0.1-1.0 MG/DL Aspartate Amino Transf (AST/SGOT) 16 5-34 U/L Alanine Aminotransferase (ALT/SGPT) 19 0-55 U/L Alkaline Phosphatase 113 40-136 U/L Lactate Dehydrogenase 229 H 125-220 U/L Troponin I 0.041 H <0.028 NG/ML C-Reactive Protein High Sensitivity 8.41 H 0.00-0.50 MG/DL Total Protein 9.1 H 6.4-8.2 GM/DL Albumin 5.1 H 3.2-4.5 GM/DL Amylase Level 16 L 25-125 U/L Lipase 15 8-78 U/L Procalcitonin 0.06 <0.10 NG/ML Glucometer 217 H 70-110 MG/DL Urine Color YELLOW Urine Clarity SL CLOUDY Urine pH 7.0 5-9 Urine Specific [place] <=1.005 1.016-1.022 Urine Protein TRACE H NEGATIVE Urine Glucose (UA) TRACE H NEGATIVE Urine Ketones NEGATIVE NEGATIVE Urine Nitrite NEGATIVE NEGATIVE Urine Bilirubin NEGATIVE NEGATIVE Urine Urobilinogen 0.2 < = 1.0 MG/DL Urine Leukocyte Esterase NEGATIVE NEGATIVE Urine RBC (Auto) 1+ H NEGATIVE Urine RBC 0-2 /HPF Urine WBC NONE /HPF Urine Squamous Epithelial Cells RARE /HPF Urine Crystals PRESENT H /LPF Urine Amorphous Sediment RARE MAHNAZ PHOSPHATE H /LPF Urine Bacteria NEGATIVE /HPF Urine Casts NONE /LPF Urine Mucus NEGATIVE /LPF Urine Culture Indicated CULTURE PENDING Urine Opiates Screen NEGATIVE NEGATIVE Urine Oxycodone Screen NEGATIVE NEGATIVE Urine Methadone Screen NEGATIVE NEGATIVE Urine Propoxyphene Screen NEGATIVE NEGATIVE Urine Barbiturates Screen NEGATIVE NEGATIVE Ur Tricyclic Antidepressants Screen POSITIVE H NEGATIVE Urine Phencyclidine Screen NEGATIVE NEGATIVE Urine Amphetamines Screen POSITIVE H NEGATIVE Urine Methamphetamines Screen NEGATIVE NEGATIVE Urine Benzodiazepines Screen NEGATIVE NEGATIVE Urine Cocaine Screen NEGATIVE NEGATIVE Urine Cannabinoids Screen POSITIVE H NEGATIVE My Orders Orders - VILMA CAO MD Chest 1 View, Ap/Pa Only (11/30/19 11:56) Ondansetron Injection (Zofran Injectio (11/30/19 11:56) Cbc With Automated Diff (11/30/19 11:56) Comprehensive Metabolic Panel (11/30/19 11:56) Blood Culture (11/30/19 11:56) Sputum Culture (11/30/19 11:56) Urinalysis (11/30/19 11:56) Urine Culture (11/30/19 11:56) Protime With Inr (11/30/19 11:56) Partial Thromboplastin Time (11/30/19 11:56) Ed Iv/Invasive Line Start (11/30/19 11:56) Vital Signs Adult Sepsis Patie Q15M (11/30/19 11:56) O2 (11/30/19 11:56) Remove Rings In Anticipation O (11/30/19 11:56) Lactic Acid Analyzer (11/30/19 11:56) Fibrin Degradation Products (11/30/19 11:56) Procalcitonin (Pct) (11/30/19 11:56) Hs C Reactive Protein (11/30/19 11:56) Erythrocyte Sedimentation Rate (11/30/19 11:56) LDH (11/30/19 11:56) Ondansetron Injection (Zofran Injectio (11/30/19 12:00) Lactated Ringers (Lr 1000 Ml Iv Solution (11/30/19 11:56) Ed Iv/Invasive Line Start (11/30/19 11:56) Fentanyl Injection (Sublimaze Injection (11/30/19 11:56) Coronavirus Sars-Cov-2 So 2019 (11/30/19 11:56) Amylase (11/30/19 11:56) Lipase (11/30/19 11:56) Troponin I (11/30/19 11:56) Fentanyl Injection (Sublimaze Injection (11/30/19 11:57) Manual Differential (11/30/19 12:35) Ct Abdomen/Pelvis W (11/30/19 14:00) Iohexol Injection (Omnipaque 350 Mg/Ml 1 (11/30/19 14:15) Received Contrast (Hold Metformin- Contr (11/30/19 14:15) Ns (Ivpb) (Sodium Chloride 0.9% Ivpb Bag (11/30/19 14:15) Fentanyl Injection (Sublimaze Injection (11/30/19 14:30) Ondansetron Injection (Zofran Injectio (11/30/19 14:30) Fentanyl Injection (Sublimaze Injection (11/30/19 14:30) Ondansetron Injection (Zofran Injectio (11/30/19 14:30) Drug Screen Stat (Urine) (11/30/19 14:36) Lactated Ringers (Lr 1000 Ml Iv Solution (11/30/19 14:45) Hydromorphone Injection (Dilaudid Inject (11/30/19 15:30) Ns Iv 1000 Ml (Sodium Chloride 0.9%) (11/30/19 15:20) Hydralazine Injection (Apresoline Inject (11/30/19 15:30) Labetalol Injection (Normodyne Injection (11/30/19 15:30) Nicotine Patch (Nicoderm Patch) (11/30/19 15:45) Medications Given in ED Current Medications Medications Dose Ordered Sig/Alfredo Route Start Time Stop Time Status Last Admin Dose Admin Iohexol 100 ml ONCE ONCE IV 11/30/19 14:15 11/30/19 14:24 DC 11/30/19 14:44 100 ML Ondansetron HCl 4 mg ONCE ONCE IVP 11/30/19 14:30 11/30/19 14:33 DC 11/30/19 14:35 4 MG Ondansetron HCl 8 mg ONCE ONCE IVP 11/30/19 12:00 11/30/19 12:01 DC 11/30/19 12:50 8 MG Sodium Chloride 100 ml ONCE ONCE IV 11/30/19 14:15 11/30/19 14:24 DC 11/30/19 14:44 80 ML Vital Signs/I&O 11/30/19 11:50 Temp 36.6 Pulse 139 Resp 40 B/P (MAP) 147/109 (122) Pulse Ox 100 O2 Delivery Room Air Progress Progress Note : Progress Note Seen and evaluated. IV, labs, EKG and chest x-ray ordered. Zofran 8 mg IV, fentanyl 100 g IV and LR 1 L bolus ordered. 1255: Patient is very difficult IV start and I was able to start long 20-gauge catheter via ultrasound guidance to the right upper arm with good flash and draw and good flush. Labs and blood cultures drawn. I do have concerns about pancreatitis as the likely cause of his pain. COVID-19 swab was done due to patient traveling about quite a bit in the community and having complaints of shortness of air plus abdominal pain in the setting of COVID pandemic. Repeat LR 1 L bolus. Monitor patient.1400: CT abdomen and pelvis ordered. 1515: Patient's does have findings of pancreatitis. He did require additional dosing of pain and nausea medicine for CT scan and was given fentanyl 75 g IV and Zofran 4 mg IV. I have discussed the case with Dr. Adamson and she accepts patient for admission, inpatient status. Hydralazine 10 mg IV, labetalol 20 mg IV and Dilaudid 0.5 mg IV ordered for hypertension and continued pain. Patient is requesting to smoke which we declined. Nicotine 21 mg patch ordered. Patient agrees with plan. Initial ECG Impression Date: Nov 30, 2019 Initial ECG Impression Time: 12:16 Initial ECG Rate: 130 Initial ECG Rhythm: S.Tach Comment Sinus tachycardia with left atrial abnormality. Normal axis. No evidence of ST elevation MA. changed due to rate from previous of 09/16/18. Interpreted by me. Diagnostic Imaging Diagonstic Imaging: Xray Plain Films/CT/US/NM/MRI: chest Comments [facility] [place] NAME: JAVIER HENLEY [facility] REC#: [id number] PT STATUS: REG ER : 1975 PHYSICIAN: VILMA CAO MD ADMIT DATE: 11/30/19/ER Draft Date of Exam:11/30/19 CHEST 1 VIEW, AP/PA ONLY INDICATION: Abdominal pain and shortness of air. TIME OF EXAM: 11:59 AM Correlation made with prior chest 09/09/2019. Heart size is normal. Lungs are clear. No infiltrates are seen. There is no effusion or pneumothorax. Multiple healed left-sided rib fractures are again noted. IMPRESSION: No acute cardiopulmonary process is detected. Dictated on workstation # [id number] Dict: 11/30/19 1210 Trans: 11/30/19 1212 CV [id number] Interpreted by: DAVID PHILLIP MD Electronically signed by: Diagonstic Imaging: CT Plain Films/CT/US/NM/MRI: abdomen, pelvis Comments [facility] [place] [place] NAME: JAVIER HENLEY [facility] REC#: [id number] PT STATUS: REG ER : 1975 PHYSICIAN: VILMA CAO MD ADMIT DATE: 11/30/19/ER Signed Date of Exam:11/30/19 CT ABDOMEN/PELVIS W EXAMINATION: CT Abdomen and Pelvis with intravenous contrast. TECHNIQUE: Multiple contiguous axial images were obtained through the abdomen and pelvis after the uneventful administration of intravenous contrast. All CT scans use one or more of the following dose optimizing techniques: automated exposure control, MA and/or KvP adjustment based on a patient size and exam type, or iterative reconstruction. HISTORY: Abdominal pain. COMPARISON: 09/09/2019. FINDINGS: Limited views of the lower thorax are unremarkable. The liver is normal without focal lesion. There is no biliary ductal dilation. Gallbladder is normal. There is stranding associated with the pancreaticoduodenal groove. Spleen is normal. Adrenal glands are normal. The kidneys are normal. There is no hydronephrosis. Urinary bladder is normal. Visualized bowel is normal in caliber without obstruction or inflammation. Appendix is normal. No free fluid or air. No abdominal or pelvic lymphadenopathy. Aorta is normal in caliber without aneurysm. There are no suspicious osseous lesions. Old rib fractures are seen on the left. IMPRESSION: 1. Stranding associated with the pancreaticoduodenal groove likely representing pancreatitis. Alternatively, this could represent peptic ulcer disease, but no ulcer is seen on CT. Dictated by: Dictated on workstation # [id number] Dict: 11/30/19 1450 Trans: 11/30/19 1530 [id number] Interpreted by: SIENA REDMAN MD Electronically signed by: SIENA REDMAN MD 11/30/19 1530 Departure Communication (Admissions) Time/Spoke to Admitting Phy: 15:15 Impression Primary Impression: Acute on chronic pancreatitis Additional Impressions: Uncontrolled hypertension Code 19 evaluation Disposition: ADMITTED INPATIENT Condition: Stable Admissions Decision to Admit Reason: Admit from ER (General) Decision to Admit/Date: Nov 30, 2019 Time/Decision to Admit Time: 15:15 Departure-Patient Inst. Referrals: YVES BLEVINS MD (PCP/Family) Primary Care Physician VILMA CAO MD Nov 30, 2019 12:38
[2019-11-30 13:06] LABS: BASOPHILS % (AUTO) 0 % (0-10); EOSINOPHILS # (AUTO) 0.1 10^3/uL (0.0-0.3); EOSINOPHILS % (AUTO) 0 % (0-10); HEMATOCRIT 51 % (40-54); HEMOGLOBIN 19.1 G/DL (13.3-17.7); LYMPHOCYTES # (AUTO) 2.4 X 10^3 (1.0-4.0); LYMPHOCYTES % (AUTO) 16 % (12-44); MEAN CORPUSCULAR HEMOGLOBIN 34 PG (25-34); MEAN CORPUSCULAR HGB CONC 37 G/DL (32-36); MEAN CORPUSCULAR VOLUME 90 FL (80-99); MEAN PLATELET VOLUME 10.5 FL (7.4-10.4); MONOCYTES # (AUTO) 1.8 X 10^3 (0.0-1.0); MONOCYTES % (AUTO) 12 % (0-12); NEUTROPHILS # (AUTO) 10.8 X 10^3 (1.8-7.8); NEUTROPHILS % (AUTO) 72 % (42-75); PLATELET COUNT 271 10^3/uL (130-400); RED CELL DISTRIBUTION WIDTH 11.7 % (10.0-14.5)
[2019-11-30 13:15] LABS: ALBUMIN 5.1 GM/DL (3.2-4.5); CHLORIDE 87 MMOL/L (98-107); POTASSIUM 3.9 MMOL/L (3.6-5.0); SODIUM 128 MMOL/L (135-145)
[2019-11-30 13:16] LABS: AMYLASE 16 U/L (25-125); CALCIUM 11.1 MG/DL (8.5-10.1)
[2019-11-30 13:17] LABS: GLUCOSE 193 MG/DL (70-105); TOTAL PROTEIN 9.1 GM/DL (6.4-8.2)
[2019-11-30 13:18] LABS: CARBON DIOXIDE 23 MMOL/L (21-32); FIBRIN DEGRADATION PRODUCTS 0.32 UG/ML (0.00-0.49); INR 1.1 (0.8-1.4); PROTHROMBIN TIME PATIENT 14.9 SEC (12.2-14.7)
[2019-11-30 13:19] LABS: BILIRUBIN,TOTAL 1.2 MG/DL (0.1-1.0)
[2019-11-30 13:21] LABS: ALKALINE PHOSPHATASE 113 U/L (40-136); CREATININE SERUM 1.02 MG/DL (0.60-1.30); GFR ESTIMATED > 60
[2019-11-30 13:22] LABS: BUN/CREATININE RATIO 8
[2019-11-30 13:24] LABS: ALANINE AMINOTRANSFERASE 19 U/L (0-55); LIPASE 15 U/L (8-78)
[2019-11-30 13:38] LABS: BAND NEUTROPHILS 4 %; BASOPHILS % (MANUAL) 0 %; EOSINOPHILS % (MANUAL) 0 %; LYMPHOCYTES % (MANUAL) 11 %; MONOCYTES % (MANUAL) 8 %; NEUTROPHILS % (MANUAL) 77 %; RBC MORPH NORMAL
[2019-11-30 13:39] LABS: ERYTHROCYTE SEDIMENTATION RATE 1 MM/HR (0-15)
[2019-11-30] MEDS ORDERED: NS 100 ML (IVPB) BAG IV ONE (14:15)
[2019-11-30] MEDS ORDERED: IOHEXOL 350 MG/ML 100 ML (OMNIPAQUE 350) VIAL IV ONE (14:15)
[2019-11-30] MEDS ORDERED: HOLD METFORMIN - RECEIVED CONTRAST 20 ML VIAL IV SCH (14:15)
[2019-11-30 14:19] LABS: BILIRUBIN,URINE NEGATIVE (NEGATIVE); CLARITY,URINE SL CLOUDY; COLOR,URINE YELLOW; GLUCOSE, URINE (UA) TRACE (NEGATIVE); KETONES,URINE NEGATIVE (NEGATIVE); LEUKOCYTE ESTERASE ,URINE NEGATIVE (NEGATIVE); NITRITE,URINE NEGATIVE (NEGATIVE); PROTEIN,URINE TRACE (NEGATIVE)
[2019-11-30 14:29] LABS: AMORPHOUS SEDIMENT,UR RARE AMOR PHOSPHATE /LPF; BACTERIA,URINE NEGATIVE /HPF; RBC,URINE 0-2 /HPF; SQUAMOUS EPITHELIAL CELL,UR RARE /HPF
[2019-11-30] MEDS ORDERED: LACTATED RINGERS 1,000 ML IV SCH (14:45)
--- NOTE | 2019-11-30 14:56 | Diagnostic Imaging Report ---
EXAMINATION: CT Abdomen and Pelvis with intravenous contrast. TECHNIQUE: Multiple contiguous axial images were obtained through the abdomen and pelvis after the uneventful administration of intravenous contrast. All CT scans use one or more of the following dose optimizing techniques: automated exposure control, MA and/or KvP adjustment based on a patient size and exam type, or iterative reconstruction. HISTORY: Abdominal pain. COMPARISON: 09/09/2019. FINDINGS: Limited views of the lower thorax are unremarkable. The liver is normal without focal lesion. There is no biliary ductal dilation. Gallbladder is normal. There is stranding associated with the pancreaticoduodenal groove. Spleen is normal. Adrenal glands are normal. The kidneys are normal. There is no hydronephrosis. Urinary bladder is normal. Visualized bowel is normal in caliber without obstruction or inflammation. Appendix is normal. No free fluid or air. No abdominal or pelvic lymphadenopathy. Aorta is normal in caliber without aneurysm. There are no suspicious osseous lesions. Old rib fractures are seen on the left. IMPRESSION: 1. Stranding associated with the pancreaticoduodenal groove likely representing pancreatitis. Alternatively, this could represent peptic ulcer disease, but no ulcer is seen on CT. Dictated by: Dictated on workstation # [id number]
[2019-11-30 15:13] LABS: AMPHETAMINE SCREEN, URINE POSITIVE (NEGATIVE); BARBITURATE SCREEN URINE NEGATIVE (NEGATIVE); BENZODIAZEPINES SCREEN URINE NEGATIVE (NEGATIVE); CANNABINOID SCREEN, URINE POSITIVE (NEGATIVE); COCAINE SCREEN URINE NEGATIVE (NEGATIVE); METHADONE STAT NEGATIVE (NEGATIVE); METHAMPHETAMINE SCREEN URINE S NEGATIVE (NEGATIVE); OPIATE SCREEN URINE NEGATIVE (NEGATIVE); OXYCODONE STAT NEGATIVE (NEGATIVE); PROPOXYPHENE STAT NEGATIVE (NEGATIVE); TRICYCLIC ANTIDEPRESSANTS SCRE POSITIVE (NEGATIVE)
[2019-11-30] MEDS ORDERED: NS IV 1000 ML 1,000 ML IV STA (15:20)
[2019-11-30] MEDS ORDERED: HYDROmorphone 2 MG/ML VIAL (DILAUDID) IV ONE (15:30)
[2019-11-30] MEDS ORDERED: LABETALOL HCL 20 MG/4 ML VIAL IV ONE (15:30)
[2019-11-30] MEDS ORDERED: hydrALAZINE (APESOLINE) 20 MG/ML VIAL IV ONE (15:30)
[2019-11-30] MEDS ORDERED: NICOTINE 21 MG (NICODERM) PATCH TD ONE (15:45)
--- NOTE | 2019-11-30 15:50 | NUR ---
V/S 1300 B/P-161/104 HR-121 1400 B/P-161/102 HR-110 1500 B/P-172/113 HR-115 1550 B/P-143/85 HR-87
[2019-11-30 16:21] VITALS: BP 153/81
--- NOTE | 2019-11-30 16:21 | NUR ---
JAVIER HENLEY JR admitted to room , with an admitting diagnosis of SOB, on from [facility] via wheel chair , accompanied by staff .JAVIER HENLEY JR introduced to surroundings, call light, bed controls, phone, TV, temperature control, lights, meal times, smoking policy, visitor policy, side rail policy, bathrooms and showers. Patient Rights given to patient in the handbook. JAVIER HENLEY JR verbalizes understanding that [facility] is not responsible for the loss or damage to any personal effects or valuables that are kept in the patients posession during their hospitalization. The following Patient Care Plans and discharge were discussed with the patient. JAVIER HENLEY JR verbalizes understanding of Interdisciplinary Patient Education. Patient was informed about the Rapid Response Team and its purpose.
[2019-11-30] MEDS: LACTATED RINGERS 1,000 ML IV SCH (17:08)
--- OUTSIDE RECORDS SUMMARY | 2019-11-30 18:29 | XMS REPORT | Clinical Summary ---
Author Author [facility] Organization [facility] Address Unknown Phone Unavailable Care Team Providers [employer] Name Role Phone PCP Unavailable Allergies Comments [...] of 1974 2 - 2-dose childhood series) Hepatitis C Screening 1991 DTaP,Tdap,and Td Vaccines 1992 (1 - Tdap) MMR Vaccines-Adult 1992 Influenza Vaccine (#1) 2020 Pneumo-Vaccine: Peds (0-5 Aged Out No longer el igible based on patient's age to Yrs) & At-Risk Patients complete this topic (6-64 Yrs) Results Not on filefrom Last 3 Months Advance Directives For more information, please contact: [phone] Date Inactivated Comments Code Status Date Activated 03/12/2012 4:11 PM Full Code 03/01/2012 11:18 PM
[2019-11-30] MEDS ORDERED: ONDANSETRON 4 MG/2 ML (SDV) Z0FRAN IVP PRN (18:30)
--- OUTSIDE RECORDS SUMMARY | 2019-11-30 18:30 | XMS REPORT ---
Author Author Sahil BLEVINS Organization [facility] Address [address] [place] [address] Care Team Providers Care Tool Planer Set Up Operator Name Role Phone YVES BLEVINS Unavailable PROBLEMS Type Condition ICD9-CM Code MUG81-TD Code Onset Dates Condition S tatus SNOMED Code Problem Personality disorder F60.9 Active 14062182 Problem Schizoaffective disorder, depressive type F25.1 Active 80373347 Problem HTN (hypertension) I10 Active 3 9002951 Problem ED (erectile dysfunction) N52.9 Acti ve 834034995 Problem Restless legs syndrome G25.81 Active 835075675 Problem GERD (gastroesophageal reflux disease) K21.9 Active 012707753 Problem Substance abuse F19.10 Active 6621 4007 Problem Polyneuropathy G62.9 Active 76061 000 Problem Ulcer of toe of right foot, unspecified ulcer stage L97.519 Active 813771691 Problem Hammertoe of left foot M20.42 Active 007548296 Problem PAD (peripheral artery disease) I73.9 Active 835811028 Problem Hammertoe of right foot M20.41 Active 074051067 Problem COPD (chronic obstructive pulmonary disease) J44.9 Active 02519306 Problem Amputated toe of right foot S98.131A Ac tive 543963676 Problem Morbid (severe) obesity due to excess calories E66 .01 Active 524799241 Problem 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 Active 903128445 Problem Hepatitis C virus infection cured after antiviral drug therapy Z86.19 Active 756050517 ALLERGIES No Information ENCOUNTERS Encounter Location Date Diagnosis [facility] [address] [facility] [id number] [address] [place] [address] Nov, [facility] [address] [facility] [id number] [place] [address] Nov, [facility] [place] [address] [facility] [id number] [place] [address] Oct, [facility] [place] [address] [facility] [id number] [place] [address] Oct, [facility] [place] [address] [facility] [id number] [place] [address] Oct, [facility] [place] [address] [facility] [id number] [place] [address] Oct, Polyneuropathy G62.9 [facility] [address] [facility] [id number] [address] [place] [address] Oct, [facility] [address] [facility] [id number] [place] [address] 10 Oct, 2019 Encounter for Medicare annual wellness exam Z00.00 ; Type 2 diabetes mellitus with other diabetic neurological complication E11.49 ; Morbid (severe) obesity due to excess calories E66.01 ; Schizoaffective disorder, depressive type F25.1 ; HTN (hypertension) I10 ; COPD (chronic obstructive pulmonary disease) J44.9 ; PAD (peripheral artery disease) I73.9 and Hepatitis C virus infection cured after antiviral drug therapy Z86.19 [facility] [address] [place] [id number] [address] [place] [address] 08 Oct, 2019 [facility] [address] [place] [id number] [address] [place] [id number] 05 Oct, 2019 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 ; Hammertoe of left foot M20.42 ; Hammertoe of right foot M20.41 and Ulcer of left foot with fat layer exposed L97.522 [facility] [address] [place] [id number] [address] [place] [address] September, Polyneuropathy G62.9 [facility] [address] [facility] [id number] [place] [address] 20 Sep, 2019 Type 2 diabetes mellitus with other diabetic neurological complication E11.49 ; Amputated toe of right foot S98.131A ; Encounter for immunization Z23 ; Hepatitis C virus infection cured after antiviral drug therapy Z86.19 ; Substance abuse F19.10 and Schizoaffective disorder, depressive type F25.1 [facility] [address] [id number] [address] [place] [id number] 14 Sep, 2019 [facility] [address] [id number] [address] [place] [address] September, [facility] [address] [id number] [address] [place] [phone] September, [facility] [address] [id number] [address] [place] [id number] Aug, Polyneuropathy G62.9 [facility] [address] [id number] [address] [place] [id number] 28 Aug, 2019 [facility] [address] [facility] [id number] [address] [place] [address] Aug, [facility] [address] [facility] [id number] [address] [place] [address] Aug, Schizoaffective disorder, de pressive type F25.1 ; Other intermediate project manager (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.899 and Stimulant use disorder F15.90 [facility] [address] [id number] [address] [place] [address] Aug, [facility] [address] [facility] [id number] [address] [place] [address] Aug, [facility] [address] [id number] [address] [place] [phone] Aug, [facility] [address] [facility] [id number] [address] [place] [address] Aug, Chronic hepatitis C without hepatic coma B18.2 [facility] [address] [id number] [address] [place] [address] 06 Aug, 2019 [facility] [address] [facility] [id number] [address] [place] [address] Aug, [facility] [address] [id number] [address] [place] [phone] 01 Aug, 2019 Polyneuropathy G62.9 [facility] [address] [id number] [address] [place] [address] 24 Jul, 2019 [facility] [address] [id number] [address] [place] [address] 23 Jul, 2019 [facility] [address] [id number] [address] [place] [phone] 18 Jul, 2019 [facility] [address] [id number] [address] [place] [address] 10 Jul, 2019 [facility] [address] [id number] [address] [place] [id number] 10 Jul, 2019 [facility] [address] [id number] [address] [place] [id number] 09 Jul, 2019 [facility] [address] [id number] [address] [place] [id number] 09 Jul, 2019 [facility] [address] [id number] [address] [place] [phone] 06 Jul, 2019 [facility] [address] [id number] [address] [place] [id number] 04 Jul, 2019 [facility] [address] [id number] [address] [place] [id number] 04 Jul, 2019 Polyneuropathy G62.9 [facility] [address] [id number] [address] [place] [phone] 27 Jun, 2019 [facility] [address] [id number] [address] [place] [phone] 17 Jun, 2019 [facility] [address] [id number] [address] [place] [id number] 17 Jun, 2019 [facility] [address] [id number] [address] [place] [id number] 10 Jun, 2019 [facility] [address] [id number] [address] [place] [phone] Jun, [facility] [address] [id number] [address] [place] [address] Jun, Polyneuropathy G62.9 [facility] [address] [facility] [id number] [address] [place] [address] May, [facility] [address] [facility] [id number] [address] [place] [address] May, Foot callus L84 [facility] [address] [facility] [id number] [address] [place] [id number] May, [facility] [address] [facility] [id number] [address] [place] [address] May, [facility] [address] [facility] [id number] [address] [place] [address] May, [facility] [address] [facility] [id number] [address] [place] [phone] May, Polyneuropathy G62.9 ; HTN ( hypertension) I10 ; Schizoaffective disorder, depressive type F25.1 ; PAD (peripheral artery disease) I73.9 ; COPD (chronic obstructive pulmonary disease) J44.9 ; Amputated toe of right foot S98.131A ; Methamphetamine use disorder, severe, 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 and Type 2 diabetes mellitus with other diabetic neurological complication E11.49 [facility] [address] [facility] [id number] [address] [place] [address] May, [facility] [address] [facility] [id number] [address] [place] [address] May, [facility] [address] [facility] [id number] [address] [place] [address] May, [facility] [address] [facility] [id number] [address] [place] [address] May, [facility] [address] [facility] [id number] [address] [place] [phone] May, [facility] [address] [id number] [address] [place] [address] May, Chronic hepatitis C without hepatic coma B18.2 and HTN (hypertension) I10 [facility] [address] [facility] [id number] [address] [place] [address] May, Neuropathy G62.9 [facility] [address] [id number] [address] [place] [id number] Apr, [address] [place] [address] Apr, [facility] [address] [id number] [address] [place] [address] Apr, [facility] [address] [facility] [id number] [address] [place] [address] Apr, [facility] [address] [facility] [id number] [address] [place] [address] Apr, [facility] [address] [id number] [address] [place] [id number] Apr, [facility] [address] [facility] [id number] [address] [place] [address] Apr, [facility] [address] [facility] [id number] [address] [place] [address] Apr, Ulcer of right foot, unspeci fied ulcer stage L97.519 ; Type 2 diabetes mellitus with other diabetic neurological complication E11.49 ; Onychomycosis B35.1 and Hammer toe, unspecified laterality M20.40 [facility] [address] [id number] [address] [place] [address] Apr, [facility] [address] [facility] [id number] [address] [place] [phone] Apr, HTN (hypertension) I10 and U lcer of toe of right foot, unspecified ulcer stage L97.519 [facility] [address] [facility] [id number] [address] [place] [address] Apr, [facility] [address] [address] Apr, Schizoaffective disorder, de pressive type F25.1 ; Other intermediate project manager (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.899 and Stimulant use disorder F15.90 [facility] [address] [address] Apr, [facility] [address] [address] Apr, [facility] [address] [address] Apr, [place] [address] [address] Mar, Pre-ulcerative calluses L84 [place] [address] [address] Mar, HTN (hypertension) I10 ; DM neuro manif type II E11.49 ; Morbid (severe) obesity due to excess calories E66.01 and Polyneuropathy G62.9 [place] [address] [address] Mar, [facility] [address] [address] Mar, [facility] [address] [address] Mar, Onychomycosis B35.1 ; Callus of foot L84 and Hammer toe, unspecified laterality M20.40 [facility] [address] [address] Mar, Neuropathy G62.9 [facility] [address] [place] [id number] [address] [place] [address] Mar, [facility] [address] [address] Mar, [facility] [address] [facility] [id number] [address] [place] [id number] 14 Mar, 2019 [facility] [address] [facility] [id number] [address] [place] [address] Mar, Constipation, unspecified co nstipation type K59.00 [facility] [address] [facility] [id number] [address] [place] [address] Mar, [facility] [address] [address] Mar, [facility] [address] [address] Mar, Chronic hepatitis C without hepatic coma B18.2 ; High risk medication use Z79.899 and Encounter for immunization Z23 [place] [address] [place] [id number] [address] [place] [address] Mar, [facility] [address] [place] [id number] [address] [place] [address] Mar, Neuropathy G62.9 [facility] [address] [address] Mar, High risk sexual behavior, u nspecified type Z72.51 [facility] [address] [place] [id number] [address] [place] [address] Feb, Callus of foot L84 [place] [address] [address] Feb, Callus of foot L84 [place] [address] [place] [id number] [address] [place] [id number] Feb, [place] [address] [place] [id number] [address] [place] [phone] Feb, [facility] [address] [place] [id number] [place] [address] Feb, Methamphetamine use disorder, severe, de pendence F15.20 ; Alcohol use disorder, severe, dependence F10.20 and Cannabis use disorder, severe, dependence F12.20 [facility] [address] [id number] [address] [place] [address] Feb, Chronic hepatitis C without hepatic coma B18.2 [facility] [address] [id number] [place] [address] Feb, Methamphetamine use disorder, severe, de pendence F15.20 ; Alcohol use disorder, severe, dependence F10.20 and Cannabis use disorder, severe, dependence F12.20 [facility] [address] [id number] [address] [place] [address] Feb, [facility] [address] [id number] [address] [place] [address] Feb, Chronic hepatitis C without hepatic coma B18.2 [facility] [address] [facility] [id number] [place] [address] Feb, Methamphetamine use disorder, severe, de pendence F15.20 ; Alcohol use disorder, severe, dependence F10.20 and Cannabis use disorder, severe, dependence F12.20 [facility] [address] [facility] [id number] [address] [place], [place] [id number] Feb, [facility] [address] [id number] [address] [place] [address] Feb, [facility] [address] [facility] [id number] [address] [place] [address] Feb, [facility] [address] [facility] [id number] [address] [place] [address] Feb, [facility] [address] [facility] [id number] [address] [place] [address] Feb, Neuropathy G62.9 [facility] [address] [facility] [id number] [address] [place], [place] [id number] Feb, Schizoaffective disorder, de pressive type F25.1 ; [facility] [place] 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.899 and Stimulant use disorder F15.90 [facility] [address] [facility] [id number] [address] [place] [address] Feb, Onychomycosis B35.1 and Neur opathy G62.9 [facility] [address] [facility] [id number] [address] [place] [address] Feb, [facility] [address] [facility] [id number] [address] [place] [address] Feb, [facility] [address] [facility] [id number] [address] [place] [address] Feb, [facility] [address] [facility] [id number] [place] [address] Feb, Methamphetamine use disorder, severe, de pendence F15.20 ; Alcohol use disorder, severe, dependence F10.20 and Cannabis use disorder, severe, dependence F12.20 [place] [address] [place] [id number] [address] [place] [address] Feb, Chronic hepatitis C without hepatic coma B18.2 and Encounter for immunization Z23 [place] [address] [facility] [id number] [address] [place] [address] Jan, [place] [address] [place] [id number] [address] [place] [address] Jan, [facility] [address] [place] [id number] [address] [place] [address] Jan, [facility] [address] [facility] [id number] [place] [address] Jan, Methamphetamine use disorder, severe, de pendence F15.20 ; Alcohol use disorder, severe, dependence F10.20 and Cannabis use disorder, severe, dependence F12.20 [place] [address] [facility] [id number] [address] [place] [address] Jan, [facility] [address] [facility] [id number] [address] [place] [address] Jan, [facility] [id number] [place] [address] 23 Jan, 2019 History of amputation Z89.9 [facility] [address] [id number] [address] [place] [id number] 21 Jan, 2019 [facility] [address] [id number] [address] [place] [id number] 20 Jan, 2019 [facility] [address] [id number] [address] [place] [phone] 20 Jan, 2019 [facility] [address] [id number] [address] [place] [phone] 19 Jan, 2019 [facility] [address] [id number] [address] [place] [address] 18 Jan, 2019 [facility] [address] [id number] [address] [place] [phone] 18 Jan, 2019 [facility] [address] [id number] [address] [place] [address] 18 Jan, 2019 [facility] [address] [id number] [place] [address] 18 Jan, 2019 Methamphetamine use disorder, severe, de pendence F15.20 ; Alcohol use disorder, severe, dependence F10.20 and Cannabis use disorder, severe, dependence F12.20 [facility] [address] [id number] [address] [place] [address] 18 Jan, 2019 [facility] [address] [id number] [address] [place] [address] 18 Jan, 2019 [facility] [address] [id number] [address] [place] [address] 16 Jan, 2019 [facility] [address] [id number] [address] [place] [address] 13 Jan, 2019 [facility] [address] [id number] [place] [address] 11 Jan, 2019 Methamphetamine use disorder, severe, de pendence F15.20 ; Alcohol use disorder, severe, dependence F10.20 and Cannabis use disorder, severe, dependence F12.20 [facility] [address] [facility] [id number] [place] [id number] Jan, Methamphetamine use disorder, severe, de pendence F15.20 ; Cannabis use disorder, severe, dependence F12.20 and Alcohol use disorder, severe, dependence F10.20 [facility] [address] [facility] [id number] [address] [place] [id number] Jan, Chronic hepatitis C without hepatic coma B18.2 [facility] [address] [facility] [id number] [address] [place] [address] Jan, Neuropathy G62.9 [facility] [address] [facility] [id number] [address] [place] [id number] Jan, [facility] [address] [place] [id number] [address] [place] [address] Jan, [facility] [address] [facility] [id number] [address] [place] [address] Jan, Chronic hepatitis C without hepatic coma B18.2 [facility] [address] [facility] [id number] [address] [place] [address] Dec, Right foot pain M79.671 [facility] [address] [place] [id number] [address] [place] [address] Dec, Schizoaffective disorder, de pressive type F25.1 ; Other intermediate project manager (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.899 and Stimulant use disorder F15.90 [facility] [address] [facility] [id number] [address] [place] [address] Dec, [facility] [address] [facility] [id number] [place] [address] Dec, Methamphetamine use disorder, severe, de pendence F15.20 ; Alcohol use disorder, severe, dependence F10.20 and Cannabis use disorder, severe, dependence F12.20 [facility] [address] [facility] [id number] [address] [place] [address] Dec, [facility] [address] [facility] [id number] [address] [place] [address] Dec, [facility] [address] [place] [id number] [address] [place] [phone] Dec, Ulcer of toe of right foot, unspecified ulcer stage L97.519 [facility] [address] [facility] [id number] [address] [place] [address] Dec, [facility] [address] [phone] Dec, Methamphetamine use disorder, severe, de pendence F15.20 ; Cannabis use disorder, severe, dependence F12.20 and Alcohol use disorder, severe, dependence F10.20 [place] [address] [place] [id number] [place] [id number] Dec, [facility] [address] [id number] Dec, Allergic contact dermatitis, unspecified trigger L23.9 and Ankle swelling, unspecified laterality M25.473 [place] [address] [id number] Dec, [place] [id number] [place] [id number] [place] [phone] Dec, [facility] [address] [place] [id number] [place] [phone] Dec, Methamphetamine use disorder, severe, de pendence F15.20 ; Alcohol use disorder, severe, dependence F10.20 and Cannabis use disorder, severe, dependence F12.20 [place] [address] [id number] Dec, [place] [address] [place] [id number] [place] [phone] Dec, [facility] [address] [place] [id number] [place] [phone] Dec, Diarrhea of presumed infecti ous origin R19.7 ; Chronic hepatitis C without hepatic coma B18.2 and Nail fungus B35.1 [facility] [address] [facility] [id number] [address] [place] [phone] Dec, Neuropathy G62.9 [facility] [address] [id number] [address] [place] [phone] Dec, [facility] [address] [facility] [id number] [address] [place] [phone] Nov, Schizoaffective disorder, de pressive type F25.1 ; [place] [facility] 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.899 and Stimulant use disorder F15.90 [facility] [address] [facility] [id number] [address] [place] [phone] Nov, [facility] [address] [facility] [id number] [place] [phone] Nov, Substance abuse F19.10 [facility] [address] [facility] [id number] [address] [place] [id number] Nov, [facility] [address] [facility] [id number] [address] [place] [phone] Nov, Chronic hepatitis C without hepatic coma B18.2 [facility] [address] [facility] [id number] [address] [place] [id number] Nov, [facility] [address] [facility] [id number] [address] [place] [id number] Nov, Fatigue, unspecified type R5 3.83 [facility] [address] [facility] [id number] [address] [place] [id number] Nov, Schizoaffective disorder, de pressive type F25.1 ; [place] [facility] 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.899 and Stimulant use disorder F15.90 [facility] [address] [facility] [id number] [address] [place] [id number] Nov, [facility] [address] [facility] [id number] [address] [place] [address] Nov, [facility] [address] [facility] [id number] [address] [place] [phone] Nov, [facility] [address] [facility] [id number] [address] [place] [id number] Oct, Neuropathy G62.9 [facility] [address] [facility] [id number] [address] [place] [address] Oct, Prediabetes R73.03 ; 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.899 and Chronic hepatitis C without hepatic coma B18.2 [facility] [address] [facility] [id number] [address] [place] [id number] Oct, Schizoaffective disorder, de pressive type F25.1 and [place] [facility] 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.899 [facility] [address] [facility] [id number] [address] [place] [id number] Oct, [facility] [address] [facility] [id number] [address] [place] [id number] 14 Oct, 2018 Sore throat J02.9 and Acute non-recurrent frontal sinusitis J01.10 [facility] [address] [facility] [id number] [address] [place] [id number] Oct, [facility] [address] [facility] [id number] [address] [place] [id number] 07 Oct, 2018 Acute URI J06.9 [facility] [address] [facility] [id number] [address] [place] [id number] Oct, [facility] [address] [facility] [id number] [address] [place] [id number] Oct, Schizoaffective disorder, de pressive type F25.1 [facility] [address] [facility] [id number] [address] [place] [id number] Oct, [facility] [address] [facility] [id number] [address] [place] [id number] Oct, Substance abuse F19.10 [facility] [address] [facility] [id number] [address] [place] [id number] Oct, Bronchitis J40 [address] [place] [address] September, Back pain M54.9 [facility] [address] [facility] [id number] [address] [place] [id number] September, Schizoaffective disorder, de pressive type F25.1 [facility] [address] [facility] [id number] [address] [place] [id number] September, [facility] [address] [facility] [address] [id number] [address] September, Substance abuse F19.10 [facility] [address] [facility] [id number] [address] [place] [id number] September, [facility] [address] [facility] [id number] [address] [place] [id number] September, Schizoaffective disorder, de pressive type F25.1 [facility] [address] [facility] [id number] [address] [place] [phone] September, Substance abuse F19.10 [facility] [address] [facility] [id number] [address] [place] [id number] September, [facility] [address] [facility] [id number] [address] [place] [address] September, Substance abuse F19.10 [facility] [address] [facility] [id number] [address] [place] [address] September, Encounter for Medicare ann l wellness exam Z00.00 ; Ulcer of right foot, unspecified ulcer stage L97.519 ; Type 2 diabetes mellitus with other diabetic neurological complication E11.49 ; COPD (chronic obstructive pulmonary disease) J44.9 ; PAD (peripheral artery disease) I73.9 ; Schizoaffective disorder, depressive type F25.1 and Routine adult health maintenance Z00.00 [facility] [address] [id number] [address] [place] [id number] September, Schizoaffective disorder, de pressive type F25.1 [facility] [address] [id number] [address] [place] [id number] September, [facility] [address] [id number] [address] [place] [id number] September, [facility] [address] [id number] [address] [place] [phone] September, Schizoaffective disorder, de pressive type F25.1 [facility] [address] [id number] [address] [place] [id number] Aug, [facility] [address] [facility] [id number] [address] [place] [address] Aug, Rib pain on left side R07.81 and Closed fracture of multiple ribs of left side with routine healing, subsequent encounter S22.42XD [facility] [address] [facility] [id number] [address] [place] [id number] Aug, [facility] [address] [id number] [address] [place] [id number] Aug, [facility] [address] [facility] [id number] [address] [place] [id number] Jul, [facility] [address] [id number] [address] [place] [id number] Jul, [facility] [address] [id number] [address] [place] [id number] Jul, [facility] [address] [facility] [id number] [address] [place] [id number] Jul, Back pain M54.9 [facility] [address] [facility] [id number] [address] [place] [id number] Jul, Polyneuropathy in diseases c lassified elsewhere G63 [facility] [address] [facility] [id number] [address] [place] [address] Jul, Constipation, unspecified co nstipation type K59.00 and Burn T30.0 [facility] [address] [facility] [id number] [address] [place] [id number] Jul, [facility] [address] [facility] [id number] [address] [place] [id number] Jun, 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 [facility] [address] [facility] [id number] [address] [place] [id number] Jun, Back pain M54.9 [facility] [address] [facility] [id number] [address] [place] [id number] Jun, 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 [facility] [address] [facility] [id number] [address] [place] [address] Jun, [facility] [address] [facility] [id number] [address] [place] [id number] Jun, [facility] [address] [facility] [id number] [address] [place] [id number] Jun, [facility] [address] [facility] [id number] [address] [place] [id number] May, [facility] [address] [facility] [id number] [address] [place] [address] May, Back pain M54.9 [facility] [address] [facility] [id number] [address] [place] [id number] May, [facility] [address] [facility] [id number] [address] [place] [id number] May, 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 ; Chronic hepatitis C without hepatic coma B18.2 and HTN (hypertension) I10 [facility] [address] [facility] [id number] [address] [place] [id number] Apr, Back pain M54.9 [facility] [address] [id number] [address] [place] [id number] Apr, [facility] [address] [id number] [address] [place] [id number] Apr, Polyneuropathy in diseases c lassified elsewhere G63 [facility] [address] [id number] [address] [place] [id number] Mar, Back pain M54.9 [facility] [address] [id number] [address] [place] [id number] Mar, [facility] [address] [id number] [address] [place] [id number] Mar, Back pain M54.9 [facility] [address] [id number] [address] [place] [id number] Mar, [facility] [address] [id number] [address] [place] [id number] Mar, [facility] [address] [id number] [address] [place] [id number] Mar, Polyneuropathy in diseases c lassified elsewhere G63 [facility] [address] [id number] [address] [place] [id number] Feb, Back pain M54.9 [facility] [address] [id number] [address] [place] [id number] Jan, Back pain M54.9 [facility] [address] [id number] [address] [place] [id number] Jan, [facility] [address] [id number] [address] [place] [id number] Jan, [facility] [address] [id number] [address] [place] [id number] Dec, Back pain M54.9 [facility] [address] [id number] [address] [place] [id number] Dec, [facility] [address] [id number] [address] [place] [id number] Dec, Upper respiratory tract infe ction, unspecified type J06.9 [facility] [address] [id number] [address] [place] [id number] Dec, [facility] [address] [id number] [address] [place] [id number] Dec, Acute suppurative otitis med ia of right ear without spontaneous rupture of tympanic membrane, recurrence not specified H66.001 and Acute nasopharyngitis J00 [facility] [address] [id number] [address] [place] [id number] Dec, Back pain M54.9 [facility] [address] [facility] [id number] [address] [place] [id number] Dec, Foot infection L08.9 and 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 [facility] [address] [id number] [address] [place] [id number] Nov, Cellulitis of toe of right f oot L03.031 ; Polyneuropathy in diseases classified elsewhere G63 and HTN (hypertension) I10 [facility] [address] [id number] [address] [place] [id number] Nov, [facility] [address] [id number] [address] [place] [id number] Nov, [facility] [address] [id number] [address] [place] [id number] Nov, Back pain M54.9 [facility] [address] [facility] [id number] [address] [place] [id number] Nov, Shortness of breath R06.02 [facility] [address] [id number] [address] [place] [id number] Nov, [facility] [address] [facility] [id number] [address] [place] [id number] Oct, [facility] [address] [id number] [address] [place] [id number] Oct, [facility] [address] [id number] [address] [place] [id number] Oct, [facility] [address] [id number] [address] [place] [id number] Oct, [facility] [address] [id number] [address] [place] [id number] Oct, [facility] [address] [id number] [address] [place] [id number] Oct, Back pain M54.9 [facility] [address] [id number] [address] [place] [id number] Oct, Back pain M54.9 [facility] [address] [id number] [address] [place] [id number] Oct, [facility] [address] [id number] [address] [place] [id number] September, [facility] [address] [id number] [address] [place] [id number] September, [facility] [address] [id number] [address] [place] [id number] September, [facility] [address] [id number] [address] [place] [id number] September, 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 and Hypotension, unspecified hypotension type I95.9 [facility] [address] [id number] [address] [place] [id number] September, [facility] [address] [id number] [address] [place] [id number] September, [facility] [address] [id number] [address] [place] [id number] September, Back pain M54.9 [facility] [address] [id number] [address] [place] [id number] Aug, [facility] [address] [id number] [address] [place] [id number] Aug, Acute cystitis with hematuri a N30.01 ; Ulcer of right foot, unspecified ulcer stage L97.519 ; HTN (hypertension) I10 ; COPD (chronic obstructive pulmonary disease) J44.9 and DM neuro manif type II E11.49 [facility] [address] [id number] [address] [place] [id number] Aug, Back pain M54.9 [facility] [address] [id number] [address] [place] [id number] Jul, [facility] [address] [facility] [id number] [address] [place] [id number] Jul, Back pain M54.9 [facility] [address] [id number] [address] [place] [id number] Jul, [facility] [address] [id number] [address] [place] [id number] Jul, DM neuro manif type II E11.4 9 and Ulcer of right foot, unspecified ulcer stage L97.519 [facility] [address] [facility] [id number] [address] [place] [id number] Jun, [facility] [address] [facility] [id number] [address] [place] [id number] Jun, [facility] [address] [facility] [id number] [address] [place] [phone] May, 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 ; GERD (gastroesophageal reflux disease) K21.9 and PAD (peripheral artery disease) I73.9 [facility] [address] [facility] [id number] [address] [place] [id number] May, Decubital ulcer L89.90 ; Nathalia betes E11.9 and GERD (gastroesophageal reflux disease) K21.9 [facility] [address] [id number] [address] [place] [id number] May, [facility] [address] [id number] [address] [place] [id number] Apr, [facility] [address] [facility] [id number] [address] [place] [id number] Mar, [facility] [address] [id number] [address] [place] [id number] Mar, [facility] [address] [id number] [address] [place] [id number] Feb, [facility] [address] [id number] [address] [place] [id number] Feb, [facility] [address] [id number] [address] [place] [id number] Jan, [facility] [address] [id number] [address] [place] [id number] Jan, HTN (hypertension) I10 [facility] [address] [id number] [address] [place] [id number] Jan, [facility] [address] [facility] [id number] [address] [place] [id number] Dec, Back pain M54.9 [facility] [address] [facility] [id number] [address] [place] [address] Dec, Back pain M54.9 [facility] [address] [id number] [address] [place] [id number] Dec, Encounter for immunization Z 23 and Puncture wound of right foot, initial encounter S91.331A [facility] [address] [facility] [id number] [address] [place] [id number] Dec, [facility] [address] [facility] [id number] [address] [place] [id number] Nov, [facility] [address] [id number] [address] [place] [id number] Nov, COPD (chronic obstructive pu lmonary disease) J44.9 [facility] [address] [id number] [address] [place] [id number] Nov, [facility] [address] [facility] [id number] [address] [place] [id number] Oct, [facility] [address] [id number] [address] [place] [id number] Oct, [facility] [address] [facility] [id number] [address] [place] [address] September, Onychomycosis B35.1 and DM n euro manif type II E11.49 [facility] [address] [facility] [id number] [address] [place] [id number] September, [facility] [address] [facility] [id number] [address] [place] [id number] Aug, [facility] [address] [id number] [address] [place] [id number] Jul, Sinusitis, unspecified chron icity, unspecified location J32.9 and Cough R05 [facility] [address] [facility] [id number] [address] [place] [id number] Jul, Back pain M54.9 [facility] [address] [facility] [id number] [address] [place] [id number] 14 Jun, 2016 Back pain M54.9 [facility] [address] [facility] [id number] [address] [place] [id number] 06 Jun, 2016 COPD (chronic obstructive pu lmonary disease) J44.9 [facility] [address] [facility] [id number] [address] [place] [phone] May, [facility] [address] [facility] [id number] [address] [place] [id number] May, [facility] [address] [id number] [address] [place] [id number] 17 May, 2016 Back pain M54.9 [facility] [address] [facility] [id number] [address] [place] [id number] 16 May, 2016 [facility] [address] [facility] [id number] [address] [place] [id number] 13 May, 2016 [facility] [address] [facility] [id number] [address] [place] [id number] 12 May, 2016 Diabetes E11.9 [facility] [address] [facility] [id number] [address] [place] [id number] 11 May, 2016 Diabetes E11.9 ; GERD [...] Need for hepatitis C screening test Z11.59 [facility] [address] [facility] [id number] [address] [place] [id number] May, HTN (hypertension) I10 [facility] [address] [facility] [id number] [address] [place] [id number] Apr, [facility] [address] [facility] [id number] [address] [place] [phone] Apr, [facility] [address] [facility] [id number] [address] [place] [id number] Apr, [facility] [address] [facility] [id number] [address] [place] [phone] Apr, [facility] [address] [facility] [id number] [address] [place] [id number] Apr, [facility] [address] [facility] [id number] [address] [place] [id number] Mar, [facility] [address] [id number] [address] [place] [id number] Mar, [facility] [address] [id number] [address] [place] [phone] Mar, [facility] [address] [id number] [address] [place] [id number] Mar, [facility] [address] [facility] [id number] [address] [place] [phone] Mar, Dental examination Z01.20 [facility] [address] [id number] [address] [place] [phone] Feb, [facility] [address] [facility] [id number] [address] [place] [id number] Feb, [facility] [address] [facility] [id number] [address] [place] [id number] Feb, Back pain M54.9 [facility] [address] [facility] [id number] [address] [place] [id number] Jan, [facility] [address] [facility] [id number] [address] [place] [id number] Jan, [facility] [address] [facility] [id number] [address] [place] [id number] Dec, Diabetes E11.9 ; GERD (gastr oesophageal reflux disease) K21.9 ; ED (erectile dysfunction) N52.9 ; HTN (hypertension) I10 ; Insomnia G47.00 ; COPD (chronic obstructive pulmonary disease) J44.9 ; Neuropathy G62.9 and Bipolar depression F31.30 [facility] [address] [facility] [id number] [address] [place] [id number] Dec, 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 and Onychomycosis B35.1 [facility] [address] [facility] [id number] [address] [place] [id number] Dec, [facility] [address] [facility] [id number] [address] [place] [address] Dec, [facility] [address] [id number] [address] [place] [address], [place] [address] Dec, [facility] [address] [id number] [address] [place] [address] Dec, [facility] [address] [id number] [address] [place] [address] Nov, [facility] [address] [id number] [address] [place] [address] Nov, [facility] [address] [id number] [address] [place] [address], [place] [address] Oct, [facility] [address] [id number] [address] [place] [address] Oct, [facility] [address] [id number] [address] [place] [address] Oct, Back pain M54.9 [facility] [address] [id number] [address] [place] [address] Oct, [facility] [address] [id number] [address] [place] [address] Oct, [facility] [address] [id number] [address] [place] [address] Oct, [facility] [address] [id number] [address] [place] [address] Oct, HTN (hypertension) I10 [facility] [address] [id number] [address] [place] [address] Oct, Back pain M54.9 [facility] [address] [id number] [address] [place] [address] Oct, Chronic pain syndrome G89.4 [facility] [address] [id number] [address] [place] [address] September, Back pain M54.9 [facility] [address] [id number] [address] [place] [address] September, HTN (hypertension) I10 [facility] [address] [facility] [id number] [address] [place] [address] Aug, Porokeratosis Q82.8 ; Onycho mycosis B35.1 and Type 2 diabetes mellitus with other diabetic neurological complication E11.49 [facility] [address] [facility] [id number] [address] [place] [address] Aug, GERD (gastroesophageal reflu x disease) K21.9 ; Diabetes E11.9 ; HTN (hypertension) I10 ; Insomnia G47.00 ; Restless legs syndrome G25.81 ; COPD (chronic obstructive pulmonary disease) J44.9 ; Back pain M54.9 and Bipolar 1 disorder F31.9 [facility] [address] [place] [id number] [address] [place] [address] Aug, [facility] [address] [facility] [id number] [address] [place] [address] Aug, [facility] [address] [facility] [id number] [address] [place] [address] Aug, [facility] [address] [facility] [id number] [address] [place] [address] Aug, [facility] [address] [facility] [id number] [address] [place] [address] Jul, [facility] [address] [facility] [id number] [address] [place] [id number] 31 Jul, 2015 [facility] [address] [facility] [id number] [address] [place] [id number] 30 Jul, 2015 [facility] [address] [facility] [id number] [address] [place] [id number] 16 Jul, 2015 [facility] [address] [facility] [id number] [address] [place] [id number] 15 Jul, 2015 [facility] [address] [facility] [id number] [address] [place] [address] Jul, [facility] [address] [facility] [id number] [address] [place] [address] Jun, Decubital ulcer L89.90 ; Nathalia betes E11.9 ; Back pain M54.9 ; HTN (hypertension) I10 and COPD (chronic obstructive pulmonary disease) J44.9 [facility] [address] [facility] [id number] [address] [place] [address] Jun, [facility] [address] [facility] [id number] [address] [place] [address] Jun, [facility] [address] [address] Jun, [facility] [address] [place] [id number] [place] [address] Jun, [facility] [address] [address] Jun, Diabetes E11.9 ; Insomnia G4 7.00 ; Decubital ulcer L89.90 ; GERD (gastroesophageal reflux disease) K21.9 ; Back pain M54.9 ; Superficial fungus infection of skin B36.9 and HTN (hypertension) I10 [id number] [place] [id number] Jun, Dental examination Z01.20 [facility] [address] [facility] [id number] [address] [place] [address] May, [facility] [address] [facility] [id number] [address] [place] [phone] May, [facility] [address] [facility] [id number] [address] [place] [address] May, [facility] [address] [facility] [id number] [address] [place] [address] May, Diabetes E11.9 ; HTN (hypert ension) I10 and Decubital ulcer L89.90 [facility] [address] [address] May, HTN (hypertension) I10 ; Dec ubital ulcer L89.90 and Diabetes E11.9 [place] [address] [address] 30 Apr, 2015 Diabetes E11.9 ; GERD (gastr oesophageal reflux disease) K21.9 ; Back pain M54.9 ; HTN (hypertension) I10 ; Restless legs syndrome G25.81 and Decubital ulcer L89.90 [place] [address] [address] 17 Apr, 2015 [place] [address] [address] Apr, Diabetes E11.9 ; HTN (hypert ension) I10 ; Restless legs syndrome G25.81 ; GERD (gastroesophageal reflux disease) K21.9 and COPD (chronic obstructive pulmonary disease) J44.9 [place] [address] [address] Mar, [place] [address] [address] Mar, [place] [address] [address] Mar, Diabetes E11.9 ; Abscess L02 .91 and Restless legs syndrome G25.81 [place] [address] [address] Mar, [place] [address] [address] Feb, GERD (gastroesophageal reflu x disease) K21.9 ; Back pain M54.9 ; ED (erectile dysfunction) N52.9 ; Diabetes E11.9 ; HTN (hypertension) I10 and Insomnia G47.00 [place] [address] [id number] Feb, [place] [address] [place] [id number] [place] [address] Feb, [facility] [address] [address] Jan, [facility] [address] [address] Jan, Diabetes 250.00 ; Nondepende nt cannabis abuse, continuous 305.21 ; Cough 786.2 ; Schizoaffective disorder, unspecified 295.70 ; Sciatica 724.3 ; Other, mixed, or unspecified nondependent drug abuse, unspecified 305.90 ; Chronic pain 338.29 ; GERD (gastroesophageal reflux disease) 530.81 and HTN (hypertension) 401.9 [place] [address] [address] Jan, [place] [address] [address] Jan, [place] [address] [address] Jan, Chronic pain associated with significant psychosocial dysfunction 338.4 ; Diabetes mellitus without mention of complication, type I [juvenile type], uncontrolled 250.03 ; Benign essential hypertension 401.1 ; Schizoaffective disorder, unspecified 295.70 ; Wheezing 786.07 ; Ear ache 388.70 ; Cough 786.2 ; Sciatica 724.3 and Foot pain, bilateral 729.5 [facility] [address] [address] Dec, [facility] [address] [address] Dec, [place] [address] [address] Dec, [facility] [address] [address] Dec, [facility] [address] [address] Dec, [facility] [address] [id number] [address] [place] [address] Nov, Elevated liver enzymes 790.5 [facility] [address] [id number] [address] [place] [address] Nov, [facility] [address] [id number] [address] [place] [address] Nov, [facility] [address] [id number] [address] [place] [address] Nov, [facility] [address] [id number] [address] [place] [address] Nov, Benign essential hypertensio n 401.1 ; Diabetes mellitus without mention of complication, type I [juvenile type], uncontrolled 250.03 and Nondependent cannabis abuse, continuous 305.21 [facility] [address] [id number] [address] [place] [address] Oct, Cellulitis 682.9 and Benign essential hypertension 401.1 [facility] [address] [id number] [address] [place] [address] Oct, [facility] [address] [id number] [address] [place] [id number] September, [facility] [address] [id number] [address] [place] [address] September, [facility] [address] [id number] [address] [place] [address] Aug, [facility] [address] [id number] [address] [place] [address] Aug, [facility] [address] [id number] [address] [place] [address] Aug, [facility] [address] [id number] [address] [place] [address] Aug, [facility] [address] [id number] [address] [place] [id number] Jul, [facility] [address] [id number] [address] [place] [address], [place] [address] Jul, [facility] [address] [id number] [address] [place] [address], [place] [address] Jul, [facility] [address] [id number] [address] [place] [address], [place] [address] Jul, [facility] [address] [id number] [address] [place] [address], [place] [address] Jul, [facility] [address] [id number] [address] [place] [address], [place] [address] Jul, [facility] [address] [id number] [address] [place] [address], [place] [address] Jun, [facility] [address] [id number] [address] [place] [address], [place] [address] Jun, [facility] [address] [id number] [address] [place] [address], [place] [address] Jun, [facility] [address] [id number] [address] [place] [address], [place] [address] Jun, [facility] [address] [id number] [address] [place] [address], [place] [address] Jun, [facility] [address] [id number] [address] [place] [address], [place] [address] May, [facility] [address] [id number] [address] [place] [address], [place] [address] May, [facility] [address] [id number] [address] [place] [address], [place] [address] May, [facility] [address] [id number] [address] [place] [address], [place] [address] May, [facility] [address] [id number] [address] [place] [address] May, [facility] [address] [id number] [address] [place] [address], [place] [address] May, [facility] [address] [id number] [address] [place] [address], [place] [address] May, [facility] [address] [id number] [address] [place] [address], [place] [address] May, [facility] [address] [id number] [address] [place] [address], [place] [address] Apr, [facility] [address] [id number] [address] [place] [address], [place] [address] Apr, [facility] [address] [id number] [address] [place] [address], [place] [address] Apr, [facility] [address] [id number] [address] [place] [address], [place] [address] Apr, [facility] [address] [id number] [address] [place] [address], [place] [address] Mar, [facility] [address] [id number] [address] [place] [address], [place] [address] Mar, [facility] [address] [id number] [address] [place] [address], [place] [address] Mar, [facility] [address] [id number] [address] [place] [address], [place] [address] Mar, [facility] [address] [id number] [address] [place] [address], [place] [address] Feb, [facility] [address] [id number] [address] [place] [address], [place] [address] Feb, [facility] [address] [id number] [address] [place] [address], [place] [address] Feb, [facility] [address] [id number] [address] [place] [address], [place] [address] Feb, [facility] [address] [id number] [address] [place] [address], [place] [address] Feb, [facility] [address] [id number] [address] [place] [address], [place] [address] Feb, [facility] [address] [id number] [address] [place] [address], [place] [address] Jan, [facility] [address] [id number] [address] [place] [address], [place] [address] Jan, [facility] [address] [id number] [address] [place] [address], [place] [address] Jan, [facility] [address] [id number] [address] [place] [address], [place] [address] Jan, [facility] [address] [id number] [address] [place] [address], [place] [address] Dec, [facility] [address] [id number] [address] [place] [address], [place] [address] Dec, [facility] [address] [id number] [address] [place] [address], [place] [address] Dec, [facility] [address] [id number] [address] [place] [address], [place] [address] Dec, [facility] [address] [id number] [address] [place] [address], [place] [address] Dec, [facility] [address] [id number] [address] [place] [address], [place] [address] Dec, [facility] [address] [id number] [address] [place] [address], [place] [address] Oct, [facility] [address] [id number] [address] [place] [address], [place] [address] Oct, [facility] [address] [id number] [address] [place] [address], [place] [address] September, [facility] [address] [id number] [address] [place] [address], [place] [address] September, [facility] [address] [id number] [address] [place] [address], [place] [address] September, [facility] [address] [id number] [address] [place] [address], [place] [address] September, [facility] [address] [id number] [address] [place] [address], [place] [address] September, [facility] [address] [id number] [address] [place] [address], [place] [address] September, [facility] [address] [id number] [address] [place] [address], [place] [address] Aug, [facility] [address] [id number] [address] [place] [address], [place] [address] Aug, [facility] [address] [id number] [address] [place] [address], [place] [address] Aug, [facility] [address] [id number] [address] [place] [address], [place] [address] Aug, [facility] [address] [id number] [address] [place] [address], [place] [address] Jul, [facility] [address] [id number] [address] [place] [address], [place] [address] Jul, [facility] [address] [id number] [address] [place] [address], [place] [address] Jun, [facility] [address] [id number] [address] [place] [address], [place] [address] Jun, [facility] [address] [id number] [address] [place] [address], [place] [address] May, [facility] [address] [id number] [address] [place] [address], [place] [address] May, [facility] [address] [id number] [address] [place] [address], [place] [address] Jan, [facility] [address] [id number] [address] [place] [address], [place] [address] Dec, [facility] [address] [id number] [address] [place] [address], [place] [address] Jun, [facility] [address] [id number] [address] [place] [address], [place] [address] May, [facility] [address] [id number] [address] [place] [address], [place] [address] Nov, [facility] [address] [id number] [address] [place] [address], [place] [address] September, [facility] [address] [id number] [address] [place] [address], [place] [address] Aug, [facility] [address] [id number] [address] [place] [address], [place] [address] Aug, [facility] [address] [id number] [address] [place] [address], [place] [address] Aug, [facility] [address] [id number] [address] [place] [address], [place] [address] Aug, [facility] [address] [id number] [address] [place] [address], [place] [address] Nov, [facility] [address] [id number] [address] [place] [address], [place] [address] Oct, [facility] [address] [id number] [address] [place] [address], [place] [address] Jul, [facility] [address] [id number] [address] [place] [address], [place] [address] Feb, [facility] [address] [id number] [address] [place] [address], [place] [address] Feb, [facility] [address] [id number] [address] [place] [address], [place] [address] Apr, [facility] [address] [id number] [address] [place] [address], [place] [address] Apr, [facility] [address] [id number] [address] [place] [address] Feb, [facility] [address] [facility] [id number] [address] [place] [address] Feb, [facility] [address] [facility] [id number] [address] [place] [address] Jul, IMMUNIZATIONS No Known Immunizations SOCIAL HISTORY Never Assessed REASON FOR VISIT CCM call PLAN OF CARE VITAL SIGNS MEDICATIONS [...]
--- OUTSIDE RECORDS SUMMARY | 2019-11-30 18:31 | XMS REPORT ---
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 Name Role Phone MICHAEL CEDILLOMELIZA Unavailable PROBLEMS Type Condition ICD9-CM Code UDL73-ED Code Onset Dates Condition S tatus SNOMED Code Problem Restless legs syndrome G25.81 Active 331110105 Problem GERD (gastroesophageal reflux disease) K21.9 Active 850189233 Problem Sinusitis, unspecified chronicity, unspecified location J32.9 Active 65973531 Problem COPD (chronic obstructive pulmonary disease) J44.9 Active 49648130 Problem Ulcer of right foot, unspecified ulcer stage L97.5 19 Active 48869935 Problem DM neuro manif type II E11.49 Active 87320167 Problem Constipation, unspecified constipation type K59.00 Active 74846053 Problem Schizoaffective disorder, depressive type F25.1 Active 94572644 Problem PAD (peripheral artery disease) I73.9 Active 786813591 Problem Chronic hepatitis C without hepatic coma B18.2 Active 924643785 Problem Polyneuropathy G62.9 Active 08564 000 Problem Alcohol use disorder, severe, dependence F10.20 Active 02282191 Problem Methamphetamine use disorder, severe, 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 Active 859145790 Problem Morbid (severe) obesity due to excess calories E66 .01 Active 992443342 Problem Neuropathy G62.9 Active 162859418 Problem ED (erectile dysfunction) N52.9 Acti ve 319979629 Problem 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 Active 493730324 Problem Substance abuse F19.10 Active 6621 4007 Problem Personality disorder F60.9 Active 16631875 Problem HTN (hypertension) I10 Active 3 8235461 Problem Cannabis use disorder, severe, dependence F12.20 Active 91895809 Problem Ulcer of toe of right foot, unspecified ulcer stage L97.519 Active 527975117 Problem Amputated toe of right foot S98.131A Ac tive 872602595 Problem Hammer toe, unspecified laterality M20.40 Active [id number] ALLERGIES No Information ENCOUNTERS Encounter Location Date Diagnosis [facility] [address] [facility] [place] [id number] [address] [id number] Oct, [facility] [address] [facility] [id number] [place], [place] [address] Oct, [facility] [id number] [place] [phone] September, [facility] [address] [id number] [address] [phone] September, [facility] [address] [id number] [address] [phone] September, [facility] [address] [id number] [address] [place] [address] September, [facility] [address] [id number] [address] [place] [phone] Aug, Polyneuropathy G62.9 [facility] [address] [id number] [address] [phone] Aug, [facility] [address] [id number] [address] [place] [phone] Aug, [facility] [address] [id number] [address] [place] [id number] Aug, Schizoaffective disorder, de pressive type F25.1 ; Other senior care (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.899 and Stimulant use disorder F15.90 [facility] [address] [id number] [address] [phone] Aug, [facility] [address] [id number] [address] [address] Aug, [facility] [address] [id number] [address] [place] [phone] Aug, [facility] [address] [id number] [address] [place] [id number] 09 Aug, 2019 Chronic hepatitis C without hepatic coma B18.2 [facility] [address] [id number] [address] [place] [phone] 06 Aug, 2019 [facility] [address] [facility] [place] [id number] [address] [phone] Aug, [facility] [address] [id number] [address] [place] [id number] Aug, Polyneuropathy G62.9 [facility] [address] [id number] [address] [place] [id number] 24 Jul, 2019 [facility] [address] [id number] [address] [place] [phone] Jul, [facility] [address] [id number] [address] [place] [id number] 18 Jul, 2019 [facility] [address] [id number] [address] [place] [phone] Jul, [facility] [address] [facility] [place] [id number] [address] [id number] 10 Jul, 2019 [facility] [address] [facility] [place] [id number] [address] [phone] Jul, [facility] [address] [facility] [place] [id number] [address] [place] [id number] 09 Jul, 2019 [facility] [address] [id number] [address] [place] [id number] 06 Jul, 2019 [facility] [address] [id number] [address] [place] [phone] Jul, [facility] [address] [facility] [place] [id number] [address] [id number] 04 Jul, 2019 Polyneuropathy G62.9 [facility] [address] [facility] [place] [id number] [address] [phone] Jun, [facility] [address] [facility] [place] [id number] [address] [phone] Jun, [facility] [address] [facility] [place] [id number] [address] [address] Jun, [facility] [address] [facility] [place] [id number] [address] [id number] Jun, [facility] [address] [facility] [place] [id number] [address] [phone] Jun, [facility] [address] [facility] [place] [id number] [address] [address] Jun, Polyneuropathy G62.9 [facility] [address] [facility] [place] [id number] [address] [phone] May, [facility] [address] [address] May, Foot callus L84 [facility] [address] [facility] [place] [id number] [address] [place] [id number] May, [facility] [address] [id number] [address] [phone] May, [facility] [address] [facility] [place] [id number] [address] [phone] May, [facility] [id number] [place] [id number] May, Polyneuropathy G62.9 ; HTN ( hypertension) I10 ; Schizoaffective disorder, depressive type F25.1 ; PAD (peripheral artery disease) I73.9 ; COPD (chronic obstructive pulmonary disease) J44.9 ; Amputated toe of right foot S98.131A ; Methamphetamine use disorder, severe, 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 and Type 2 diabetes mellitus with other diabetic neurological complication E11.49 [facility] [address] [facility] [place] [id number] [address] [id number] May, [facility] [address] [facility] [place] [id number] [address] [phone] May, [facility] [address] [id number] [address] [place] [phone] May, [facility] [address] [id number] [address] [place] [phone] May, [facility] [address] [facility] [place] [id number] [address] [phone] May, [facility] [address] [facility] [place] [id number] [address] [place] [phone] May, Chronic hepatitis C without hepatic coma B18.2 and HTN (hypertension) I10 [facility] [address] [id number] [address] [place] [address] May, Neuropathy G62.9 [facility] [address] [facility] [place] [id number] [address] [place] [address] Apr, [id number] [place] [phone] Apr, [facility] [address] [facility] [place] [id number] [address] [place] [address] Apr, [facility] [address] [facility] [place] [id number] [address] [id number] Apr, [facility] [address] [facility] [place] [id number] [address] [place] [phone] Apr, [facility] [address] [facility] [place] [id number] [address] [phone] Apr, [facility] [address] [facility] [place] [id number] [address] [place] [phone] Apr, [facility] [address] [facility] [place] [id number] [address] [place] [address] Apr, Ulcer of right foot, unspeci fied ulcer stage L97.519 ; Type 2 diabetes mellitus with other diabetic neurological complication E11.49 ; Onychomycosis B35.1 and Hammer toe, unspecified laterality M20.40 [facility] [address] [id number] [address] [place] [id number] Apr, [facility] [id number] [place] [address] Apr, HTN (hypertension) I10 and U lcer of toe of right foot, unspecified ulcer stage L97.519 [facility] [id number] [place] [address] Apr, [facility] [id number] [place] [address] Apr, Schizoaffective disorder, de pressive type F25.1 ; Other senior care (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.899 and Stimulant use disorder F15.90 [place] [address] [address] Apr, [place] [address] [phone] Apr, [place] [address] [place] [id number] [place] [phone] Apr, [place] [address] [id number] [place] [phone] Mar, Pre-ulcerative calluses L84 [place] [address] [id number] [place] [address] Mar, HTN (hypertension) I10 ; DM neuro manif type II E11.49 ; Morbid (severe) obesity due to excess calories E66.01 and Polyneuropathy G62.9 [place] [address] [place] [id number] [address] [place] [phone] Mar, [place] [address] [place] [id number] [address] [place] [phone] Mar, [place] [id number] [id number] [address] [place] [address] Mar, Onychomycosis B35.1 ; Callus of foot L84 and Hammer toe, unspecified laterality M20.40 [facility] [address] [facility] [place] [id number] [address] [place] [id number] Mar, Neuropathy G62.9 [facility] [address] [id number] [address] [place] [id number] Mar, [facility] [address] [facility] [place] [id number] [address] [phone] Mar, [facility] [address] [id number] [address] [place] [phone] Mar, [facility] [address] [facility] [place] [id number] [address] [place] [id number] Mar, Constipation, unspecified co nstipation type K59.00 [facility] [address] [facility] [place] [id number] [address] [place] [phone] Mar, [facility] [address] [facility] [place] [id number] [address] [place] [phone] Mar, [facility] [address] [facility] [place] [id number] [address] [place] [id number] Mar, Chronic hepatitis C without hepatic coma B18.2 ; High risk medication use Z79.899 and Encounter for immunization Z23 [facility] [address] [facility] [place] [id number] [address] [place] [phone] Mar, [facility] [address] [facility] [place] [id number] [address] [place] [phone] Mar, Neuropathy G62.9 [facility] [address] [facility] [place] [id number] [address] [address] Mar, High risk sexual behavior, u nspecified type Z72.51 [facility] [address] [facility] [place] [id number] [address] [place] [id number] Feb, Callus of foot L84 [facility] [address] [facility] [place] [id number] [address] [id number] Feb, Callus of foot L84 [facility] [address] [id number] [address] [id number] Feb, [facility] [address] [facility] [place] [id number] [address] [phone] Feb, [facility] [address] [facility] [place] [id number] [place] [id number] Feb, Methamphetamine use disorder, severe, de pendence F15.20 ; Alcohol use disorder, severe, dependence F10.20 and Cannabis use disorder, severe, dependence F12.20 [facility] [address] [id number] [address] [place] [address] Feb, Chronic hepatitis C without hepatic coma B18.2 [facility] [address] [id number] [place] [address], [place] [address] Feb, Methamphetamine use disorder, severe, de pendence F15.20 ; Alcohol use disorder, severe, dependence F10.20 and Cannabis use disorder, severe, dependence F12.20 [facility] [address] [id number] [address] [place] [phone] Feb, [facility] [address] [facility] [place] [id number] [address] [place] [id number] Feb, Chronic hepatitis C without hepatic coma B18.2 [facility] [address] [facility] [place] [id number] [place] [address] Feb, Methamphetamine use disorder, severe, de pendence F15.20 ; Alcohol use disorder, severe, dependence F10.20 and Cannabis use disorder, severe, dependence F12.20 [facility] [address] [id number] [address] [place] [id number] Feb, [facility] [address] [facility] [place] [id number] [address] [place] [address] Feb, [facility] [address] [facility] [place] [id number] [address] [place] [phone] Feb, [facility] [address] [facility] [place] [id number] [address] [id number] Feb, [facility] [address] [facility] [place] [id number] [address] [place] [id number] Feb, Neuropathy G62.9 [facility] [address] [facility] [place] [id number] [address] [place] [address] Feb, Schizoaffective disorder, de pressive type F25.1 ; Other extermination inspector (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.899 and Stimulant use disorder F15.90 [facility] [address] [facility] [place] [id number] [address] [place] [id number] Feb, Onychomycosis B35.1 and Neur opathy G62.9 [facility] [address] [facility] [place] [id number] [address] [place] [phone] Feb, [facility] [address] [facility] [place] [id number] [address] [phone] Feb, [facility] [address] [facility] [place] [id number] [address] [phone] Feb, [facility] [id number] [place] [address] [place] [address] Feb, Methamphetamine use disorder, severe, de pendence F15.20 ; Alcohol use disorder, severe, dependence F10.20 and Cannabis use disorder, severe, dependence F12.20 [facility] [address] [facility] [place] [id number] [address] [place] [address] Feb, Chronic hepatitis C without hepatic coma B18.2 and Encounter for immunization Z23 [facility] [address] [facility] [place] [id number] [address] [place] [phone] Jan, [facility] [address] [facility] [place] [id number] [address] [phone] Jan, [facility] [address] [facility] [place] [id number] [address] [phone] Jan, [facility] [address] [id number] [address] Jan, Methamphetamine use disorder, severe, de pendence F15.20 ; Alcohol use disorder, severe, dependence F10.20 and Cannabis use disorder, severe, dependence F12.20 [facility] [address] [id number] [address] [place] [phone] 24 Jan, 2019 [facility] [address] [facility] [place] [id number] [address] [phone] Jan, [facility] [address] [facility] [place] [id number] [address] [address] Jan, History of amputation Z89.9 [facility] [address] [facility] [place] [id number] [address] [phone] Jan, [facility] [address] [facility] [place] [id number] [address] [place] [phone] Jan, [facility] [address] [facility] [place] [id number] [address] [place] [phone] Jan, [facility] [address] [facility] [place] [id number] [address] [phone] Jan, [facility] [address] [facility] [place] [id number] [address] [phone] Jan, [facility] [address] [facility] [place] [id number] [address] [phone] Jan, [facility] [address] [facility] [place] [id number] [address] [phone] Jan, [facility] [address] [id number] [address] [phone] Jan, [facility] [address] [facility] [place] [id number] [place] [id number] Jan, Methamphetamine use disorder, severe, de pendence F15.20 ; Alcohol use disorder, severe, dependence F10.20 and Cannabis use disorder, severe, dependence F12.20 [facility] [address] [facility] [place] [id number] [address] [place] [phone] Jan, [facility] [address] [facility] [place] [id number] [address] [id number] 16 Jan, 2019 [facility] [address] [facility] [place] [id number] [address] [place] [address] 13 Jan, 2019 [facility] [address] [facility] [place] [id number] [place] [phone] Jan, Methamphetamine use disorder, severe, de pendence F15.20 ; Alcohol use disorder, severe, dependence F10.20 and Cannabis use disorder, severe, dependence F12.20 [facility] [address] [facility] [place] [id number] [place] [phone] Jan, Methamphetamine use disorder, severe, de pendence F15.20 ; Cannabis use disorder, severe, dependence F12.20 and Alcohol use disorder, severe, dependence F10.20 [facility] [address] [facility] [place] [id number] [address] [place] [id number] Jan, Chronic hepatitis C without hepatic coma B18.2 [facility] [address] [facility] [place] [id number] [address] [place] [address] Jan, Neuropathy G62.9 [facility] [address] [facility] [place] [id number] [address] [place] [id number] Jan, [facility] [address] [facility] [place] [id number] [address] [place] [id number] Jan, [facility] [address] [facility] [place] [id number] [address] [place] [id number] Jan, Chronic hepatitis C without hepatic coma B18.2 [facility] [address] [facility] [place] [id number] [address] [place] [id number] Dec, Right foot pain M79.671 [facility] [address] [facility] [place] [id number] [address] [place] [id number] Dec, Schizoaffective disorder, de pressive type F25.1 ; Other senior care (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.899 and Stimulant use disorder F15.90 [facility] [address] [id number] [address] [address] Dec, [facility] [address] [address] Dec, Methamphetamine use disorder, severe, de pendence F15.20 ; Alcohol use disorder, severe, dependence F10.20 and Cannabis use disorder, severe, dependence F12.20 [place] [address] [address] Dec, [facility] [id number] [place] [address] Dec, [facility] [place] [facility] [place] [address] [address] Dec, Ulcer of toe of right foot, unspecified ulcer stage L97.519 [place] [address] [address] Dec, [facility] [place] [facility] [place] [address] [address] Dec, Methamphetamine use disorder, severe, de pendence F15.20 ; Cannabis use disorder, severe, dependence F12.20 and Alcohol use disorder, severe, dependence F10.20 [place] [address] [address] Dec, [facility] [address] [address] Dec, Allergic contact dermatitis, unspecified trigger L23.9 and Ankle swelling, unspecified laterality M25.473 [place] [address] [address] Dec, [place] [address] [address] Dec, [facility] [id number] [place] [address] Dec, Methamphetamine use disorder, severe, de pendence F15.20 ; Alcohol use disorder, severe, dependence F10.20 and Cannabis use disorder, severe, dependence F12.20 [facility] [address] [id number] [address] [place] [address] Dec, [facility] [address] [id number] [address] [place] [address] Dec, [facility] [address] [facility] [place] [id number] [address] [place] [address] Dec, Diarrhea of presumed infecti ous origin R19.7 ; Chronic hepatitis C without hepatic coma B18.2 and Nail fungus B35.1 [facility] [address] [facility] [place] [id number] [address] [place] [address] Dec, Neuropathy G62.9 [facility] [address] [facility] [place] [id number] [address] [place] [address] Dec, [facility] [address] [facility] [place] [id number] [address] [place] [address] Nov, Schizoaffective disorder, de pressive type F25.1 ; Other extermination inspector (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.899 and Stimulant use disorder F15.90 [facility] [address] [id number] [address] [place] [address] Nov, [facility] [address] [facility] [place] [id number] [place] [address] Nov, Substance abuse F19.10 [facility] [address] [facility] [place] [id number] [address] [place] [address] Nov, [facility] [address] [facility] [place] [id number] [address] [place] [address] Nov, Chronic hepatitis C without hepatic coma B18.2 [facility] [address] [facility] [place] [id number] [address] [place] [address] Nov, [facility] [address] [facility] [place] [id number] [address] [address] Nov, Fatigue, unspecified type R5 3.83 [facility] [address] [id number] [address] [place] [address] 16 Nov, 2018 Schizoaffective disorder, de pressive type F25.1 ; Other senior care (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.899 and Stimulant use disorder F15.90 [facility] [address] [id number] [address] [place] [address] Nov, [facility] [address] [id number] [address] [place] [address] Nov, [facility] [address] [id number] [address] [place] [address] Nov, [facility] [address] [id number] [address] [place] [address] Oct, Neuropathy G62.9 [facility] [address] [facility] [place] [id number] [address] [place] [address] Oct, Prediabetes R73.03 ; 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.899 and Chronic hepatitis C without hepatic coma B18.2 [facility] [address] [facility] [place] [id number] [address] [place] [address] Oct, Schizoaffective disorder, de pressive type F25.1 and Other extermination inspector (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.899 [facility] [address] [facility] [place] [id number] [address] [place] [address] Oct, [facility] [address] [facility] [place] [id number] [address] [place] [address] 14 Oct, 2018 Sore throat J02.9 and Acute non-recurrent frontal sinusitis J01.10 [facility] [address] [facility] [place] [id number] [address] [place] [id number] 11 Oct, 2018 [facility] [address] [facility] [place] [id number] [address] [place] [id number] 07 Oct, 2018 Acute URI J06.9 [facility] [address] [facility] [place] [id number] [address] [place] [address] Oct, [facility] [address] [id number] [address] [place] [address] Oct, Schizoaffective disorder, de pressive type F25.1 [facility] [address] [id number] [address] [place] [address] Oct, [facility] [address] [id number] [address] [place] [address] Oct, Substance abuse F19.10 [facility] [address] [id number] [address] [place] [address] Oct, Bronchitis J40 [facility] [id number] [address] September, Back pain M54.9 [facility] [address] [id number] [address] [place] [address] September, Schizoaffective disorder, de pressive type F25.1 [facility] [address] [id number] [address] [place] [address] September, [address] [id number] [address] September, Substance abuse F19.10 [facility] [address] [id number] [address] [place] [address] September, [facility] [address] [id number] [address] [place] [address] September, Schizoaffective disorder, de pressive type F25.1 [facility] [address] [id number] [address] [place] [address] September, Substance abuse F19.10 [facility] [address] [id number] [address] [place] [address] September, [facility] [address] [id number] [address] [place] [address] September, Substance abuse F19.10 [facility] [address] [id number] [address] [place] [id number] 16 Sep, 2018 Encounter for Medicare sabi rodriguez wellness exam Z00.00 ; Ulcer of right foot, unspecified ulcer stage L97.519 ; Type 2 diabetes mellitus with other diabetic neurological complication E11.49 ; COPD (chronic obstructive pulmonary disease) J44.9 ; PAD (peripheral artery disease) I73.9 ; Schizoaffective disorder, depressive type F25.1 and Routine adult health maintenance Z00.00 [facility] [address] [id number] [address] [place] [id number] 15 Sep, 2018 Schizoaffective disorder, de pressive type F25.1 [facility] [address] [id number] [address] [place] [id number] September, [facility] [address] [id number] [address] [place] [address] September, [facility] [address] [facility] [place] [id number] [address] [place] [address] September, Schizoaffective disorder, de pressive type F25.1 [facility] [address] [facility] [place] [id number] [address] [place] [phone] Aug, [facility] [address] [id number] [address] [place] [address] Aug, Rib pain on left side R07.81 and Closed fracture of multiple ribs of left side with routine healing, subsequent encounter S22.42XD [facility] [address] [id number] [address] [place] [address] Aug, [facility] [address] [facility] [place] [id number] [address] [place] [address] Aug, [facility] [address] [facility] [place] [id number] [address] [address] Jul, [facility] [address] [facility] [place] [id number] [address] [place] [address] Jul, [facility] [address] [id number] [address] [place] [address] Jul, [facility] [address] [facility] [place] [id number] [address] [address] Jul, Back pain M54.9 [facility] [address] [facility] [place] [id number] [address] [place] [address] Jul, Polyneuropathy in diseases c lassified elsewhere G63 [facility] [address] [id number] [address] [place] [address] Jul, Constipation, unspecified co nstipation type K59.00 and Burn T30.0 [facility] [address] [facility] [place] [id number] [address] [place] [address] Jul, [facility] [address] [facility] [place] [id number] [address] [address] Jun, 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 [facility] [address] [facility] [place] [id number] [address] [place] [address] Jun, Back pain M54.9 [facility] [address] [facility] [place] [id number] [address] [address] Jun, 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 [facility] [address] [facility] [place] [id number] [address] [place] [address] Jun, [facility] [address] [facility] [place] [id number] [address] [address] Jun, [facility] [address] [facility] [place] [id number] [address] [id number] Jun, [facility] [address] [facility] [place] [id number] [address] [address] May, [facility] [address] [facility] [place] [id number] [address] [address] May, Back pain M54.9 [facility] [address] [id number] [address] [place] [address] May, [facility] [address] [id number] [address] [place] [address] May, 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 ; Chronic hepatitis C without hepatic coma B18.2 and HTN (hypertension) I10 [facility] [address] [id number] [address] [place] [address] Apr, Back pain M54.9 [facility] [address] [id number] [address] [place] [address] Apr, [facility] [address] [id number] [address] [place] [id number] Apr, Polyneuropathy in diseases c lassified elsewhere G63 [facility] [address] [id number] [address] [place] [address] Mar, Back pain M54.9 [facility] [address] [id number] [address] [place] [address] Mar, [facility] [address] [id number] [address] [place] [address] Mar, Back pain M54.9 [facility] [address] [id number] [address] [place] [address] Mar, [facility] [address] [id number] [address] [place] [address] Mar, [facility] [address] [id number] [address] [place] [address] Mar, Polyneuropathy in diseases c lassified elsewhere G63 [facility] [address] [id number] [address] [address] Feb, Back pain M54.9 [facility] [address] [id number] [address] [place] [address] Jan, Back pain M54.9 [facility] [address] [id number] [address] [id number] 07 Jan, 2018 [facility] [address] [id number] [address] [address] Jan, [facility] [address] [id number] [address] [address] Dec, Back pain M54.9 [facility] [address] [id number] [address] [place] [address] Dec, [facility] [address] [facility] [place] [id number] [address] [place] [address] Dec, Upper respiratory tract infe ction, unspecified type J06.9 [facility] [address] [facility] [place] [id number] [address] [address] Dec, [facility] [address] [facility] [place] [id number] [address] [address] Dec, Acute suppurative otitis med ia of right ear without spontaneous rupture of tympanic membrane, recurrence not specified H66.001 and Acute nasopharyngitis J00 [facility] [address] [facility] [place] [id number] [address] [address] Dec, Back pain M54.9 [facility] [address] [facility] [place] [id number] [address] [address] Dec, Foot infection L08.9 and 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 [facility] [address] [facility] [place] [id number] [address] [address] Nov, Cellulitis of toe of right f oot L03.031 ; Polyneuropathy in diseases classified elsewhere G63 and HTN (hypertension) I10 [facility] [address] [facility] [place] [id number] [address] [place] [id number] Nov, [facility] [address] [facility] [place] [id number] [address] [address] Nov, [facility] [address] [id number] [address] [place] [id number] 05 Nov, 2017 Back pain M54.9 [facility] [address] [id number] [address] [place] [address], [place] [address] Nov, Shortness of breath R06.02 [facility] [address] [id number] [address] [place] [address], [place] [address] Nov, [facility] [address] [id number] [address] [place] [address] Oct, [facility] [address] [id number] [address] [place] [address], [place] [address] Oct, [facility] [address] [id number] [address] [place] [address] Oct, [facility] [address] [id number] [address] [place] [address], [place] [address] Oct, [facility] [address] [id number] [address] [place] [address] Oct, [facility] [address] [id number] [address] [place] [address] Oct, Back pain M54.9 [facility] [address] [id number] [address] [place] [address] Oct, Back pain M54.9 [facility] [address] [id number] [address] [place] [address] Oct, [facility] [address] [id number] [address] [place] [address] September, [facility] [address] [id number] [address] [place] [address] September, [facility] [address] [id number] [address] [place] [address] September, [facility] [address] [id number] [address] [place] [address] September, 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 and Hypotension, unspecified hypotension type I95.9 [facility] [address] [id number] [address] [place] [address] September, [facility] [address] [facility] [place] [id number] [address] [address] September, [facility] [address] [facility] [place] [id number] [address] [address] September, Back pain M54.9 [facility] [address] [id number] [address] [place] [address] Aug, [facility] [address] [facility] [place] [id number] [address] [address] Aug, Acute cystitis with hematuri a N30.01 ; Ulcer of right foot, unspecified ulcer stage L97.519 ; HTN (hypertension) I10 ; COPD (chronic obstructive pulmonary disease) J44.9 and DM neuro manif type II E11.49 [facility] [address] [id number] [address] [place] [address] Aug, Back pain M54.9 [facility] [address] [id number] [address] [place] [address] Jul, [facility] [address] [facility] [place] [id number] [address] [id number] Jul, Back pain M54.9 [facility] [address] [id number] [address] [place] [address] Jul, [facility] [address] [id number] [address] [place] [address] Jul, DM neuro manif type II E11.4 9 and Ulcer of right foot, unspecified ulcer stage L97.519 [facility] [address] [id number] [address] [place] [address] Jun, [facility] [address] [facility] [id number] [address] [address] Jun, [facility] [address] [id number] [address] [address] May, 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 ; GERD (gastroesophageal reflux disease) K21.9 and PAD (peripheral artery disease) I73.9 [facility] [address] [id number] [address] [place] [id number] 17 May, 2017 Decubital ulcer L89.90 ; Nathalia betes E11.9 and GERD (gastroesophageal reflux disease) K21.9 [facility] [address] [id number] [address] [address] May, [facility] [address] [id number] [address] [address] Apr, [facility] [address] [id number] [address] [place] [address] Mar, [facility] [address] [id number] [address] [place] [id number] Mar, [facility] [address] [id number] [address] [place] [address] Feb, [facility] [address] [id number] [address] [place] [id number] Feb, [facility] [address] [id number] [address] [id number] Jan, [facility] [address] [id number] [address] [id number] Jan, HTN (hypertension) I10 [facility] [address] [id number] [address] [address] Jan, [facility] [address] [id number] [address] [address] Dec, Back pain M54.9 [facility] [address] [id number] [address] [place] [phone] Dec, Back pain M54.9 [facility] [address] [id number] [address] [place] [id number] Dec, Encounter for immunization Z 23 and Puncture wound of right foot, initial encounter S91.331A [facility] [address] [id number] [address] [place] [phone] Dec, [facility] [address] [facility] [place] [id number] [address] [place] [phone] Nov, [facility] [address] [facility] [place] [id number] [address] [place] [id number] Nov, COPD (chronic obstructive pu lmonary disease) J44.9 [facility] [address] [facility] [place] [id number] [address] [place] [id number] Nov, [facility] [address] [facility] [place] [id number] [address] [place] [address] Oct, [facility] [address] [facility] [place] [id number] [address] [place] [address] Oct, [facility] [address] [facility] [place] [id number] [address] [place] [address] September, Onychomycosis B35.1 and DM n euro manif type II E11.49 [facility] [address] [facility] [place] [id number] [address] [place] [address] September, [facility] [address] [facility] [place] [id number] [address] [place] [address] Aug, [facility] [address] [facility] [place] [id number] [address] [place] [address] Jul, Sinusitis, unspecified chron icity, unspecified location J32.9 and Cough R05 [facility] [address] [facility] [place] [id number] [address] [place] [address] Jul, Back pain M54.9 [facility] [address] [facility] [place] [id number] [address] [place] [address] 14 Jun, 2016 Back pain M54.9 [facility] [address] [id number] [address] [place] [address] 06 Jun, 2016 COPD (chronic obstructive pu lmonary disease) J44.9 [facility] [address] [id number] [address] [place] [address] May, [facility] [address] [facility] [place] [id number] [address] [place] [address] May, [facility] [address] [id number] [address] [place] [address] May, Back pain M54.9 [facility] [address] [id number] [address] [place] [address] May, [facility] [address] [facility] [place] [id number] [address] [place] [address] May, [facility] [address] [facility] [place] [id number] [address] [place] [address] May, Diabetes E11.9 [facility] [address] [facility] [place] [id number] [address] [place] [address] 11 May, 2016 Diabetes E11.9 ; GERD [...] Z11.59 [facility] [address] [facility] [place] [id number] [address] [place] [address] May, HTN (hypertension) I10 [facility] [address] [facility] [place] [id number] [address] [place] [address] Apr, [facility] [address] [facility] [place] [id number] [address] [place] [address] Apr, [facility] [address] [id number] [address] [place] [address] Apr, [facility] [address] [id number] [address] [place] [address] Apr, [facility] [address] [id number] [address] [place] [address] Apr, [facility] [address] [id number] [address] [place] [address] Mar, [facility] [address] [id number] [address] [place] [address] Mar, [facility] [address] [id number] [address] [place] [address] Mar, [facility] [address] [id number] [address] [place] [address] Mar, [facility] [address] [facility] [place] [id number] [address] [place] [address] Mar, Dental examination Z01.20 [facility] [address] [id number] [address] [place] [address] Feb, [facility] [address] [facility] [place] [id number] [address] [place] [id number] Feb, [facility] [address] [facility] [place] [id number] [address] [place] [address] Feb, Back pain M54.9 [facility] [address] [id number] [address] [place] [address] Jan, [facility] [address] [facility] [place] [id number] [address] [place] [address] Jan, [facility] [address] [facility] [place] [id number] [address] [place] [address] Dec, Diabetes E11.9 ; GERD (gastr oesophageal reflux disease) K21.9 ; ED (erectile dysfunction) N52.9 ; HTN (hypertension) I10 ; Insomnia G47.00 ; COPD (chronic obstructive pulmonary disease) J44.9 ; Neuropathy G62.9 and Bipolar depression F31.30 [facility] [address] [id number] [address] [place] [address] Dec, 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 and Onychomycosis B35.1 [facility] [address] [id number] [address] [place] [address] Dec, [facility] [address] [id number] [address] [place] [address] Dec, [facility] [address] [id number] [address] [place] [address] Dec, [facility] [address] [id number] [address] [place] [address] Dec, [facility] [address] [id number] [address] [place] [address] Nov, [facility] [address] [id number] [address] [place] [address] Nov, [facility] [address] [id number] [address] [place] [address] Oct, [facility] [address] [id number] [address] [place] [address] Oct, [facility] [address] [id number] [address] [place] [address] Oct, Back pain M54.9 [facility] [address] [id number] [address] [place] [address] Oct, [facility] [address] [id number] [address] [place] [address] Oct, [facility] [address] [id number] [address] [place] [address] Oct, [facility] [address] [id number] [address] [place] [address] Oct, HTN (hypertension) I10 [facility] [address] [place] [id number] [address] [place] [address] Oct, Back pain M54.9 [facility] [address] [place] [id number] [place] [address] Oct, Chronic pain syndrome G89.4 [facility] [address] [place] [id number] [address] [place] [address] September, Back pain M54.9 [facility] [address] [place] [id number] [address] [place] [address] September, HTN (hypertension) I10 [facility] [address] [address] Aug, Porokeratosis Q82.8 ; Onycho mycosis B35.1 and Type 2 diabetes mellitus with other diabetic neurological complication E11.49 [place] [address] [address] Aug, GERD (gastroesophageal reflu x disease) K21.9 ; Diabetes E11.9 ; HTN (hypertension) I10 ; Insomnia G47.00 ; Restless legs syndrome G25.81 ; COPD (chronic obstructive pulmonary disease) J44.9 ; Back pain M54.9 and Bipolar 1 disorder F31.9 [facility] [address] [place] [id number] [address] [place] [address] Aug, [facility] [id number] [place] [address] Aug, [facility] [address] [place] [id number] [address] [place] [address] Aug, [facility] [address] [place] [id number] [address] [place] [address] Aug, [facility] [address] [place] [id number] [address] [place] [address] Jul, [facility] [address] [place] [id number] [address] [place] [address] Jul, [facility] [address] [facility] [place] [id number] [address] [place] [id number] 30 Jul, 2015 [facility] [address] [facility] [place] [id number] [address] [place] [id number] 16 Jul, 2015 [facility] [address] [facility] [place] [id number] [address] [place] [address] 15 Jul, 2015 [facility] [address] [facility] [place] [id number] [address] [place] [address] Jul, [facility] [address] [facility] [place] [id number] [address] [place] [address] 17 Jun, 2015 Decubital ulcer L89.90 ; Nathalia betes E11.9 ; Back pain M54.9 ; HTN (hypertension) I10 and COPD (chronic obstructive pulmonary disease) J44.9 [facility] [id number] [place] [address] Jun, [facility] [address] [place] [id number] [address] [place] [address] Jun, [facility] [id number] [place] [address] Jun, [facility] [address] [facility] [place] [id number] [address] [place] [address] Jun, [facility] [id number] [place] [address] Jun, Diabetes E11.9 ; Insomnia G4 7.00 ; Decubital ulcer L89.90 ; GERD (gastroesophageal reflux disease) K21.9 ; Back pain M54.9 ; Superficial fungus infection of skin B36.9 and HTN (hypertension) I10 [id number] [place] [id number] 02 Jun, 2015 Dental examination Z01.20 [facility] [address] [facility] [place] [id number] [address] [place] [address] May, [facility] [address] [place] [id number] [address] [place] [address] May, [place] [address] [address] May, [place] [address] [address] May, Diabetes E11.9 ; HTN (hypert ension) I10 and Decubital ulcer L89.90 [place] [address] [address] May, HTN (hypertension) I10 ; Dec ubital ulcer L89.90 and Diabetes E11.9 [place] [address] [id number] 30 Apr, 2015 Diabetes E11.9 ; GERD (gastr oesophageal reflux disease) K21.9 ; Back pain M54.9 ; HTN (hypertension) I10 ; Restless legs syndrome G25.81 and Decubital ulcer L89.90 [place] [address] [address] 17 Apr, 2015 [place] [address] [address] Apr, Diabetes E11.9 ; HTN (hypert ension) I10 ; Restless legs syndrome G25.81 ; GERD (gastroesophageal reflux disease) K21.9 and COPD (chronic obstructive pulmonary disease) J44.9 [place] [address] [place] [id number] [address] [place] [address] Mar, [place] [address] [address] Mar, [place] [address] [address] Mar, Diabetes E11.9 ; Abscess L02 .91 and Restless legs syndrome G25.81 [place] [address] [address] Mar, [place] [address] [address] Feb, GERD (gastroesophageal reflu x disease) K21.9 ; Back pain M54.9 ; ED (erectile dysfunction) N52.9 ; Diabetes E11.9 ; HTN (hypertension) I10 and Insomnia G47.00 [place] [address] [address] Feb, [place] [address] [address] Feb, [place] [address] [address] Jan, [place] [address] [address] Jan, Diabetes 250.00 ; Nondepende nt cannabis abuse, continuous 305.21 ; Cough 786.2 ; Schizoaffective disorder, unspecified 295.70 ; Sciatica 724.3 ; Other, mixed, or unspecified nondependent drug abuse, unspecified 305.90 ; Chronic pain 338.29 ; GERD (gastroesophageal reflux disease) 530.81 and HTN (hypertension) 401.9 [place] [address] [address] Jan, [place] [address] [address] Jan, [address] [address] Jan, Chronic pain associated with significant psychosocial dysfunction 338.4 ; Diabetes mellitus without mention of complication, type I [juvenile type], uncontrolled 250.03 ; Benign essential hypertension 401.1 ; Schizoaffective disorder, unspecified 295.70 ; Wheezing 786.07 ; Ear ache 388.70 ; Cough 786.2 ; Sciatica 724.3 and Foot pain, bilateral 729.5 [place] [address] [address] Dec, [place] [id number] [id number] [address] [place] [address] Dec, [facility] [address] [id number] [address] [place] [address] Dec, [facility] [address] [id number] [address] [place] [address] Dec, [facility] [address] [id number] [address] [place] [address] Dec, [facility] [address] [id number] [address] [place] [address] Nov, Elevated liver enzymes 790.5 [facility] [address] [id number] [address] [place] [address] Nov, [facility] [address] [facility] [place] [id number] [address] [place] [address] Nov, [facility] [address] [facility] [place] [id number] [address] [place] [address] Nov, [facility] [address] [id number] [address] [place] [address] Nov, Benign essential hypertensio n 401.1 ; Diabetes mellitus without mention of complication, type I [juvenile type], uncontrolled 250.03 and Nondependent cannabis abuse, continuous 305.21 [facility] [address] [id number] [address] [place] [address] Oct, Cellulitis 682.9 and Benign essential hypertension 401.1 [facility] [address] [id number] [address] [place] [address] Oct, [facility] [address] [facility] [place] [id number] [address] [place] [id number] September, [facility] [address] [id number] [address] [place] [address] September, [facility] [address] [facility] [place] [id number] [address] [place] [address] Aug, [facility] [address] [id number] [address] [place] [address], [place] [address] 28 Aug, 2014 [facility] [address] [id number] [address] [place] [address], [place] [address] 14 Aug, 2014 [facility] [address] [id number] [address] [place] [address], [place] [address] Aug, [facility] [address] [id number] [address] [place] [address], [place] [address] Jul, [facility] [address] [id number] [address] [place] [address], [place] [address] Jul, [facility] [address] [id number] [address] [place] [address], [place] [address] Jul, [facility] [address] [id number] [address] [place] [address], [place] [address] Jul, [facility] [address] [id number] [address] [place] [address], [place] [address] Jul, [facility] [address] [id number] [address] [place] [address], [place] [address] Jul, [facility] [address] [id number] [address] [place] [address], [place] [address] Jun, [facility] [address] [id number] [address] [place] [address], [place] [address] Jun, [facility] [address] [id number] [address] [place] [address], [place] [address] Jun, [facility] [address] [id number] [address] [place] [address], [place] [address] Jun, [facility] [address] [id number] [address] [place] [address], [place] [address] Jun, [facility] [address] [id number] [address] [place] [address], [place] [address] May, [facility] [address] [id number] [address] [place] [address], [place] [address] May, [facility] [address] [id number] [address] [place] [address], [place] [address] May, [facility] [address] [id number] [address] [place] [address], [place] [address] May, [facility] [address] [id number] [address] [place] [address], [place] [address] May, [facility] [address] [id number] [address] [place] [address], [place] [address] May, [facility] [address] [id number] [address] [place] [address], [place] [address] May, [facility] [address] [id number] [address] [place] [address], [place] [address] May, [facility] [address] [id number] [address] [place] [address], [place] [address] Apr, [facility] [address] [id number] [address] [place] [address], [place] [address] Apr, [facility] [address] [id number] [address] [place] [address], [place] [address] Apr, [facility] [address] [id number] [address] [place] [address], [place] [address] Apr, [facility] [address] [id number] [address] [place] [address], [place] [address] Mar, [facility] [address] [id number] [address] [place] [address], [place] [address] Mar, [facility] [address] [id number] [address] [place] [address], [place] [address] Mar, [facility] [address] [id number] [address] [place] [address], [place] [address] Mar, [facility] [address] [id number] [address] [place] [address], [place] [address] Feb, [facility] [address] [id number] [address] [place] [address], [place] [address] Feb, [facility] [address] [id number] [address] [place] [address], [place] [address] Feb, [facility] [address] [id number] [address] [place] [address], [place] [address] Feb, [facility] [address] [id number] [address] [place] [address], [place] [address] Feb, [facility] [address] [id number] [address] [place] [address], [place] [address] Feb, [facility] [address] [id number] [address] [place] [address], [place] [address] Jan, [facility] [address] [id number] [address] [place] [address], [place] [address] Jan, [facility] [address] [id number] [address] [place] [address], [place] [address] Jan, [facility] [address] [id number] [address] [place] [address], [place] [address] Jan, [facility] [address] [id number] [address] [place] [address], [place] [address] Dec, [facility] [address] [id number] [address] [place] [address], [place] [address] Dec, [facility] [address] [id number] [address] [place] [address], [place] [address] Dec, [facility] [address] [id number] [address] [place] [address], [place] [address] Dec, [facility] [address] [id number] [address] [place] [address], [place] [address] Dec, [facility] [address] [id number] [address] [place] [address], [place] [address] Dec, [facility] [address] [id number] [address] [place] [address], [place] [address] Oct, [facility] [address] [id number] [address] [place] [address], [place] [address] Oct, [facility] [address] [id number] [address] [place] [address], [place] [address] September, [facility] [address] [id number] [address] [place] [address], [place] [address] September, [facility] [address] [id number] [address] [place] [address], [place] [address] September, [facility] [address] [id number] [address] [place] [address], [place] [address] September, [facility] [address] [id number] [address] [place] [address], [place] [address] September, [facility] [address] [id number] [address] [place] [address], [place] [address] September, [facility] [address] [id number] [address] [place] [address], [place] [address] Aug, [facility] [address] [id number] [address] [place] [address], [place] [address] Aug, [facility] [address] [id number] [address] [place] [address], [place] [address] Aug, [facility] [address] [id number] [address] [place] [address], [place] [address] Aug, [facility] [address] [id number] [address] [place] [address], [place] [address] Jul, [facility] [address] [id number] [address] [place] [address], [place] [address] Jul, [facility] [address] [id number] [address] [place] [address], [place] [address] Jun, [facility] [address] [id number] [address] [place] [address], [place] [address] Jun, [facility] [address] [id number] [address] [place] [address], [place] [address] May, [facility] [address] [id number] [address] [place] [address], [place] [address] May, [facility] [address] [id number] [address] [place] [address], [place] [address] Jan, [facility] [address] [id number] [address] [place] [address], [place] [address] Dec, [facility] [address] [id number] [address] [place] [address], [place] [address] Jun, [facility] [address] [id number] [address] [place] [address], [place] [address] May, [facility] [address] [id number] [address] [place] [address], [place] [address] Nov, [facility] [address] [id number] [address] [place] [address], [place] [address] September, [facility] [address] [id number] [address] [place] [address], [place] [address] Aug, [facility] [address] [id number] [address] [place] [address], [place] [address] Aug, [facility] [address] [id number] [address] [place] [address], [place] [id number] Aug, [facility] [address] [id number] [address] [place] [address], [place] [id number] Aug, [facility] [address] [id number] [address] [place] [address], [place] [id number] Nov, [facility] [address] [id number] [address] [place] [address], [place] [id number] Oct, [facility] [address] [id number] [address] [place] [address], [place] [address] Jul, [facility] [address] [id number] [address] [place] [address], [place] [id number] Feb, [facility] [address] [facility] [place] [id number] [address] [id number] Feb, [facility] [address] [facility] [place] [id number] [address] [place] [id number] Apr, [facility] [address] [facility] [place] [id number] [address] [place] [id number] Apr, [facility] [address] [facility] [place] [id number] [address] [place] [phone] Feb, [facility] [address] [facility] [place] [id number] [address] [place] [phone] Feb, [facility] [address] [facility] [place] [id number] [address] [place] [phone] Jul, IMMUNIZATIONS No Known Immunizations SOCIAL HISTORY Never Assessed REASON FOR VISIT PLAN OF CARE VITAL SIGNS MEDICATIONS Unknown Medications RESULTS No Results PROCEDURES Procedure Date Ordered Result Body Site GLYCATED HEMOGLOBIN TEST Dec 09, 2012 INSTRUCTIONS MEDICATIONS ADMINISTERED No Known Medications MEDICAL [...]
--- OUTSIDE RECORDS SUMMARY | 2019-11-30 18:31 | XMS REPORT ---
Author Author Sahil JAMESON NA [facility] Organization [facility] Address [address] [place] [address] Care Team Providers Care Mailing Manager Name Role Phone MICHAEL CEDILLOMELIZA Unavailable PROBLEMS Type Condition ICD9-CM Code AJM88-QL Code Onset Dates Condition S tatus SNOMED Code Problem Restless legs syndrome G25.81 Active 909881116 Problem GERD (gastroesophageal reflux disease) K21.9 Active 106423643 Problem Sinusitis, unspecified chronicity, unspecified location J32.9 Active 41632162 Problem COPD (chronic obstructive pulmonary disease) J44.9 Active 99011141 Problem Ulcer of right foot, unspecified ulcer stage L97.5 19 Active 20661184 Problem DM neuro manif type II E11.49 Active 17573887 Problem Constipation, unspecified constipation type K59.00 Active 52125490 Problem Schizoaffective disorder, depressive type F25.1 Active 53809623 Problem PAD (peripheral artery disease) I73.9 Active 924604498 Problem Chronic hepatitis C without hepatic coma B18.2 Active 723686451 Problem Polyneuropathy G62.9 Active 87782 000 Problem Alcohol use disorder, severe, dependence F10.20 Active 70382904 Problem Methamphetamine use disorder, severe, 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 Active 794700347 Problem Morbid (severe) obesity due to excess calories E66 .01 Active 644570354 Problem Neuropathy G62.9 Active 218299671 Problem ED (erectile dysfunction) N52.9 Acti ve 937300151 Problem 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 Active 768614427 Problem Substance abuse F19.10 Active 6621 4007 Problem Personality disorder F60.9 Active 79367370 Problem HTN (hypertension) I10 Active 3 1636184 Problem Cannabis use disorder, severe, dependence F12.20 Active 00828747 Problem Ulcer of toe of right foot, unspecified ulcer stage L97.519 Active 373374973 Problem Amputated toe of right foot S98.131A Ac tive 915101481 Problem Hammer toe, unspecified laterality M20.40 Active 952589905 ALLERGIES No Information ENCOUNTERS Encounter Location Date Diagnosis [facility] [address] [id number] [address] [place] [phone] Oct, [facility] [id number] [place] [phone] Oct, [facility] [address] [place] [phone] 05 Oct, 2019 [facility] [id number] [place] [phone] September, [facility] [address] [id number] [place] [address] September, [facility] [address] [id number] [place] [phone] September, [facility] [address] [place] [address] September, [facility] [id number] [place] [address] Aug, Polyneuropathy G62.9 [facility] [id number] [place] [address] Aug, [facility] [address] [id number] [place] [address] Aug, [facility] [id number] [place] [address] Aug, Schizoaffective disorder, de pressive type F25.1 ; Other manager intermediate (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.899 and Stimulant use disorder F15.90 [facility] [id number] [address] [place] [phone] Aug, [facility] [address] [phone] Aug, [facility] [address] [id number] [address] [place] [phone] 13 Aug, 2019 [facility] [address] [id number] [address] [place] [phone] 09 Aug, 2019 Chronic hepatitis C without hepatic coma B18.2 [facility] [address] [id number] [address] [place] [address], [place] [address] 06 Aug, 2019 [facility] [address] [id number] [address] [place] [phone] Aug, 2019 [facility] [address] [id number] [address] [place] [phone] Aug, Polyneuropathy G62.9 [facility] [address] [id number] [address] [place] [phone] 24 Jul, 2019 [facility] [address] [id number] [address] [place] [phone] 23 Jul, 2019 [facility] [address] [id number] [address] [place] [id number] 18 Jul, 2019 [facility] [address] [id number] [address] [place] [phone] 10 Jul, 2019 [facility] [address] [id number] [address] [place] [address] 10 Jul, 2019 [facility] [address] [id number] [address] [place] [phone] 09 Jul, 2019 [facility] [address] [id number] [address] [place] [phone] 09 Jul, 2019 [facility] [address] [id number] [address] [place] [phone] 06 Jul, 2019 [facility] [address] [id number] [address] [place] [phone] 04 Jul, 2019 [facility] [address] [id number] [address] [place] [phone] 04 Jul, 2019 Polyneuropathy G62.9 [facility] [address] [facility] [id number] [address] [place] [phone] Jun, [facility] [address] [facility] [id number] [address] [place] [phone] Jun, [facility] [address] [facility] [id number] [address] [place] [phone] Jun, [facility] [address] [facility] [id number] [address] [place] [phone] Jun, [facility] [address] [facility] [id number] [address] [place] [phone] Jun, [facility] [address] [facility] [id number] [address] [place] [address] Jun, Polyneuropathy G62.9 [facility] [address] [facility] [id number] [address] [place] [address] May, [facility] [address] [facility] [id number] [address] [place] [address] May, Foot callus L84 [facility] [address] [facility] [id number] [address] [place] [phone] May, [facility] [address] [facility] [id number] [address] [place] [address] May, [facility] [address] [place] [address] May, [facility] [address] [facility] [id number] [address] [place] [phone] 09 May, 2019 Polyneuropathy G62.9 ; HTN ( hypertension) I10 ; Schizoaffective disorder, depressive type F25.1 ; PAD (peripheral artery disease) I73.9 ; COPD (chronic obstructive pulmonary disease) J44.9 ; Amputated toe of right foot S98.131A ; Methamphetamine use disorder, severe, 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 and Type 2 diabetes mellitus with other diabetic neurological complication E11.49 [facility] [address] [id number] [address] [place] [address] May, [facility] [address] [id number] [address] [place] [phone] May, [facility] [address] [id number] [address] [place] [phone] May, [facility] [address] [id number] [address] [place] [phone] May, [facility] [address] [id number] [address] [place] [address] May, [facility] [address] [id number] [address] [place] [address] May, Chronic hepatitis C without hepatic coma B18.2 and HTN (hypertension) I10 [facility] [address] [id number] [address] [place] [address] May, Neuropathy G62.9 [facility] [address] [id number] [address] [place] [address] Apr, [id number] [place] [phone] Apr, [facility] [address] [id number] [address] [place] [address] Apr, [facility] [address] [id number] [address] [place] [phone] Apr, [facility] [address] [id number] [address] [place] [address] Apr, [facility] [address] [id number] [address] [place] [phone] Apr, [facility] [address] [id number] [address] [place] [address] Apr, [facility] [address] [id number] [address] [place] [address] Apr, Ulcer of right foot, unspeci fied ulcer stage L97.519 ; Type 2 diabetes mellitus with other diabetic neurological complication E11.49 ; Onychomycosis B35.1 and Hammer toe, unspecified laterality M20.40 [facility] [address] [facility] [id number] [address] [place] [address] Apr, [facility] [id number] [place] [address] Apr, HTN (hypertension) I10 and U lcer of toe of right foot, unspecified ulcer stage L97.519 [facility] [address] [facility] [id number] [address] [place] [address] Apr, [facility] [id number] [place] [address] Apr, Schizoaffective disorder, de pressive type F25.1 ; Other penitentiary (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.899 and Stimulant use disorder F15.90 [address] [place] [address] Apr, [facility] [id number] [place] [address] Apr, [facility] [id number] [place] [address] Apr, [address] [id number] [place] [address] Mar, Pre-ulcerative calluses L84 [facility] [id number] [place] [phone] Mar, HTN (hypertension) I10 ; DM neuro manif type II E11.49 ; Morbid (severe) obesity due to excess calories E66.01 and Polyneuropathy G62.9 [facility] [id number] [place] [phone] Mar, [facility] [id number] [place] [address] Mar, [facility] [address] [facility] [id number] [address] [place] [address] Mar, Onychomycosis B35.1 ; Callus of foot L84 and Hammer toe, unspecified laterality M20.40 [facility] [address] [facility] [id number] [address] [place] [address] Mar, Neuropathy G62.9 [facility] [address] [facility] [id number] [address] [place] [address] Mar, [facility] [address] [facility] [id number] [address] [place] [address] Mar, [facility] [address] [facility] [id number] [address] [place] [address] Mar, [facility] [id number] [place] [address] Mar, Constipation, unspecified co nstipation type K59.00 [facility] [address] [facility] [id number] [address] [place] [address] Mar, [facility] [address] [facility] [id number] [address] [place] [phone] Mar, [facility] [address] [facility] [id number] [address] [place] [address] Mar, Chronic hepatitis C without hepatic coma B18.2 ; High risk medication use Z79.899 and Encounter for immunization Z23 [facility] [address] [facility] [id number] [address] [place] [address] Mar, [facility] [address] [facility] [id number] [address] [place] [address] Mar, Neuropathy G62.9 [facility] [address] [facility] [id number] [address] [place] [address] Mar, High risk sexual behavior, u nspecified type Z72.51 [facility] [id number] [place] [address] Feb, Callus of foot L84 [facility] [id number] [place] [address] Feb, Callus of foot L84 [facility] [id number] [place] [phone] Feb, [facility] [id number] [place] [phone] Feb, [facility] [address] [facility] [id number] [place] [address] Feb, Methamphetamine use disorder, severe, de pendence F15.20 ; Alcohol use disorder, severe, dependence F10.20 and Cannabis use disorder, severe, dependence F12.20 [facility] [id number] [place] [address] Feb, Chronic hepatitis C without hepatic coma B18.2 [facility] [address] [address] Feb, Methamphetamine use disorder, severe, de pendence F15.20 ; Alcohol use disorder, severe, dependence F10.20 and Cannabis use disorder, severe, dependence F12.20 [facility] [id number] [place] [address] Feb, [facility] [id number] [place] [address] Feb, Chronic hepatitis C without hepatic coma B18.2 [facility] [id number] [place] [address] Feb, Methamphetamine use disorder, severe, de pendence F15.20 ; Alcohol use disorder, severe, dependence F10.20 and Cannabis use disorder, severe, dependence F12.20 [facility] [id number] [place] [address] Feb, [facility] [id number] [place] [address] Feb, [facility] [id number] [place] [address] Feb, [facility] [id number] [place] [address] Feb, [facility] [address] [facility] [id number] [address] [place] [address] Feb, Neuropathy G62.9 [facility] [id number] [place] [address] Feb, Schizoaffective disorder, de pressive type F25.1 ; Other penitentiary (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.899 and Stimulant use disorder F15.90 [address] [address] [address] Feb, Onychomycosis B35.1 and Neur opathy G62.9 [place] [id number] [place] [address] Feb, [facility] [id number] [place] [address] Feb, [facility] [address] [address] Feb, [facility] [address] [place] [address] Feb, Methamphetamine use disorder, severe, de pendence F15.20 ; Alcohol use disorder, severe, dependence F10.20 and Cannabis use disorder, severe, dependence F12.20 [facility] [id number] [place] [address] Feb, Chronic hepatitis C without hepatic coma B18.2 and Encounter for immunization Z23 [facility] [id number] [place] [address] Jan, [facility] [id number] [place] [address] Jan, [facility] [id number] [place] [address] Jan, [facility] [id number] [place] [address] Jan, Methamphetamine use disorder, severe, de pendence F15.20 ; Alcohol use disorder, severe, dependence F10.20 and Cannabis use disorder, severe, dependence F12.20 [facility] [address] [id number] [address] [place] [address] 24 Jan, 2019 [facility] [address] [id number] [address] [place] [address] Jan, [facility] [address] [id number] [address] [place] [address] Jan, History of amputation Z89.9 [facility] [address] [id number] [address] [place] [address] Jan, [facility] [address] [id number] [address] [place] [address] Jan, [facility] [address] [id number] [address] [place] [phone] Jan, [facility] [address] [id number] [address] [place] [address] Jan, [facility] [address] [id number] [address] [place] [address] 18 Jan, 2019 [facility] [address] [id number] [address] [place] [address] Jan, [facility] [address] [id number] [address] [place] [address] Jan, [facility] [address] [id number] [address] [place] [address] Jan, [facility] [address] [id number] [place] [address] 18 Jan, 2019 Methamphetamine use disorder, severe, de pendence F15.20 ; Alcohol use disorder, severe, dependence F10.20 and Cannabis use disorder, severe, dependence F12.20 [facility] [address] [facility] [id number] [address] [place] [address] 18 Jan, 2019 [facility] [address] [facility] [id number] [address] [place] [address] 16 Jan, 2019 [facility] [address] [facility] [id number] [address] [place] [address] 13 Jan, 2019 [facility] [address] [facility] [id number] [place] [address] Jan, Methamphetamine use disorder, severe, de pendence F15.20 ; Alcohol use disorder, severe, dependence F10.20 and Cannabis use disorder, severe, dependence F12.20 [facility] [address] [facility] [id number] [place] [address] Jan, Methamphetamine use disorder, severe, de pendence F15.20 ; Cannabis use disorder, severe, dependence F12.20 and Alcohol use disorder, severe, dependence F10.20 [facility] [address] [facility] [id number] [address] [place] [address] Jan, Chronic hepatitis C without hepatic coma B18.2 [facility] [address] [facility] [id number] [address] [place] [address] Jan, Neuropathy G62.9 [facility] [address] [facility] [id number] [address] [place] [address] Jan, [facility] [address] [facility] [id number] [address] [place] [address] Jan, [facility] [address] [facility] [id number] [address] [place] [address] Jan, Chronic hepatitis C without hepatic coma B18.2 [facility] [address] [facility] [id number] [address] [place] [address] Dec, Right foot pain M79.671 [facility] [address] [facility] [id number] [address] [place] [address] Dec, Schizoaffective disorder, de pressive type F25.1 ; Other penitentiary (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.899 and Stimulant use disorder F15.90 [facility] [address] [facility] [id number] [address] [place] [address] Dec, [facility] [id number] [place] [address] Dec, Methamphetamine use disorder, severe, de pendence F15.20 ; Alcohol use disorder, severe, dependence F10.20 and Cannabis use disorder, severe, dependence F12.20 [place] [address] [facility] [id number] [address] [place] [address] Dec, [place] [address] [place] [id number] [place] [address] Dec, [facility] [id number] [place] [address] Dec, Ulcer of toe of right foot, unspecified ulcer stage L97.519 [place] [address] [place] [id number] [place] [address] Dec, [facility] [id number] [place] [address] Dec, Methamphetamine use disorder, severe, de pendence F15.20 ; Cannabis use disorder, severe, dependence F12.20 and Alcohol use disorder, severe, dependence F10.20 [place] [address] [place] [id number] [address] [place] [phone] Dec, [facility] [address] [id number] [address] [place] [id number] Dec, Allergic contact dermatitis, unspecified trigger L23.9 and Ankle swelling, unspecified laterality M25.473 [place] [address] [facility] [id number] [address] [place] [phone] Dec, [place] [address] [place] [address] [id number] [address] [place] [phone] Dec, [facility] [id number] [place] [phone] Dec, Methamphetamine use disorder, severe, de pendence F15.20 ; Alcohol use disorder, severe, dependence F10.20 and Cannabis use disorder, severe, dependence F12.20 [facility] [address] [facility] [id number] [address] [place] [id number] Dec, [facility] [address] [facility] [id number] [address] [place] [phone] Dec, [facility] [address] [facility] [id number] [address] [place] [id number] Dec, Diarrhea of presumed infecti ous origin R19.7 ; Chronic hepatitis C without hepatic coma B18.2 and Nail fungus B35.1 [facility] [address] [facility] [id number] [address] [place] [phone] Dec, Neuropathy G62.9 [facility] [address] [facility] [id number] [address] [place] [id number] Dec, [facility] [address] [facility] [id number] [address] [place] [id number] Nov, Schizoaffective disorder, de pressive type F25.1 ; Other manager intermediate (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.899 and Stimulant use disorder F15.90 [facility] [address] [facility] [id number] [address] [place] [phone] Nov, [facility] [address] [facility] [id number] [place] [phone] Nov, Substance abuse F19.10 [facility] [address] [facility] [id number] [address] [place] [phone] Nov, [facility] [address] [facility] [id number] [address] [place] [id number] Nov, Chronic hepatitis C without hepatic coma B18.2 [facility] [address] [facility] [id number] [address] [place] [phone] Nov, [facility] [address] [facility] [id number] [address] [place] [phone] Nov, Fatigue, unspecified type R5 3.83 [facility] [address] [facility] [id number] [address] [place] [phone] Nov, Schizoaffective disorder, de pressive type F25.1 ; Other penitentiary (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.899 and Stimulant use disorder F15.90 [facility] [address] [facility] [id number] [address] [place] [phone] Nov, [facility] [address] [facility] [id number] [address] [place] [address] Nov, [facility] [address] [facility] [id number] [address] [place] [phone] Nov, [facility] [address] [facility] [id number] [address] [place] [address] Oct, Neuropathy G62.9 [facility] [address] [place] [id number] [address] [place] [address] Oct, Prediabetes R73.03 ; 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.899 and Chronic hepatitis C without hepatic coma B18.2 [facility] [address] [facility] [id number] [address] [place] [phone] Oct, Schizoaffective disorder, de pressive type F25.1 and Other penitentiary (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.899 [facility] [address] [facility] [id number] [address] [place] [phone] Oct, [facility] [address] [facility] [id number] [address] [place] [phone] 14 Oct, 2018 Sore throat J02.9 and Acute non-recurrent frontal sinusitis J01.10 [facility] [address] [facility] [id number] [address] [place] [phone] 11 Oct, 2018 [facility] [address] [facility] [id number] [address] [place] [phone] Oct, Acute URI J06.9 [facility] [address] [facility] [id number] [address] [place] [phone] Oct, [facility] [address] [facility] [id number] [address] [place] [phone] Oct, Schizoaffective disorder, de pressive type F25.1 [facility] [address] [facility] [id number] [address] [place] [address] Oct, [facility] [address] [facility] [id number] [address] [place] [phone] Oct, Substance abuse F19.10 [facility] [address] [facility] [id number] [address] [place] [address] Oct, Bronchitis J40 [facility] [address] [id number] [address] September, Back pain M54.9 [facility] [address] [facility] [id number] [address] [place] [phone] September, Schizoaffective disorder, de pressive type F25.1 [facility] [address] [facility] [id number] [address] [place] [address] September, [address] [address] September, Substance abuse F19.10 [facility] [address] [facility] [id number] [address] [place] [address] September, [facility] [address] [facility] [id number] [address] [place] [phone] September, Schizoaffective disorder, de pressive type F25.1 [facility] [address] [facility] [id number] [address] [place] [phone] September, Substance abuse F19.10 [facility] [address] [facility] [id number] [address] [place] [phone] September, [facility] [address] [facility] [id number] [address] [place] [address] September, Substance abuse F19.10 [facility] [address] [facility] [id number] [address] [place] [address] September, [facility] Z[facility].00 ; Ulcer of right foot, unspecified ulcer stage L97.519 ; Type 2 diabetes mellitus with other diabetic neurological complication E11.49 ; COPD (chronic obstructive pulmonary disease) J44.9 ; PAD (peripheral artery disease) I73.9 ; Schizoaffective disorder, depressive type F25.1 and Routine adult health maintenance Z00.00 [facility] [address] [facility] [id number] [address] [place] [phone] September, Schizoaffective disorder, de pressive type F25.1 [facility] [address] [facility] [id number] [address] [place] [phone] September, [facility] [address] [facility] [id number] [address] [place] [phone] September, [facility] [address] [facility] [id number] [address] [place] [phone] September, Schizoaffective disorder, de pressive type F25.1 [facility] [address] [facility] [id number] [address] [place] [address] Aug, [facility] [address] [facility] [id number] [address] [place] [address] Aug, Rib pain on left side R07.81 and Closed fracture of multiple ribs of left side with routine healing, subsequent encounter S22.42XD [facility] [address] [facility] [id number] [address] [place] [phone] Aug, [facility] [address] [facility] [id number] [address] [place] [phone] Aug, [facility] [address] [facility] [id number] [address] [place] [phone] Jul, [facility] [address] [id number] [address] [place] [phone] Jul, [facility] [address] [id number] [address] [place] [id number] Jul, [facility] [address] [id number] [address] [place] [address] Jul, Back pain M54.9 [facility] [address] [id number] [address] [place] [address] Jul, Polyneuropathy in diseases c lassified elsewhere G63 [facility] [address] [id number] [address] [place] [address] Jul, Constipation, unspecified co nstipation type K59.00 and Burn T30.0 [facility] [address] [facility] [id number] [address] [place] [phone] Jul, [facility] [address] [facility] [id number] [address] [place] [phone] Jun, 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 [facility] [address] [id number] [address] [place] [address] Jun, Back pain M54.9 [facility] [address] [id number] [address] [place] [phone] Jun, 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 [facility] [address] [id number] [address] [place] [phone] Jun, [facility] [address] [id number] [address] [place] [phone] Jun, [facility] [address] [facility] [id number] [address] [place] [phone] Jun, [facility] [address] [facility] [id number] [address] [place] [phone] May, [facility] [address] [id number] [address] [place] [address] May, Back pain M54.9 [facility] [address] [id number] [address] [place] [address] May, [facility] [address] [id number] [address] [place] [address] May, 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 ; Chronic hepatitis C without hepatic coma B18.2 and HTN (hypertension) I10 [facility] [address] [id number] [address] [place] [address] Apr, Back pain M54.9 [facility] [address] [id number] [address] [place] [address] Apr, [facility] [address] [id number] [address] [place] [address] Apr, Polyneuropathy in diseases c lassified elsewhere G63 [facility] [address] [id number] [address] [place] [phone] Mar, Back pain M54.9 [facility] [address] [id number] [address] [place] [address] Mar, [facility] [address] [id number] [address] [place] [address] Mar, Back pain M54.9 [facility] [address] [id number] [address] [place] [phone] Mar, [facility] [address] [id number] [address] [place] [address] Mar, [facility] [address] [id number] [address] [place] [phone] Mar, Polyneuropathy in diseases c lassified elsewhere G63 [facility] [address] [id number] [address] [place] [address] Feb, Back pain M54.9 [facility] [address] [id number] [address] [place] [address] Jan, Back pain M54.9 [facility] [address] [facility] [id number] [address] [place] [id number] 07 Jan, 2018 [facility] [address] [id number] [address] [place] [id number] Jan, [facility] [address] [facility] [id number] [address] [place] [id number] Dec, Back pain M54.9 [facility] [address] [facility] [id number] [address] [place] [id number] Dec, [facility] [address] [facility] [id number] [address] [place] [address] Dec, Upper respiratory tract infe ction, unspecified type J06.9 [facility] [address] [facility] [id number] [address] [place] [address] Dec, [facility] [address] [facility] [id number] [address] [place] [address] Dec, Acute suppurative otitis med ia of right ear without spontaneous rupture of tympanic membrane, recurrence not specified H66.001 and Acute nasopharyngitis J00 [facility] [address] [facility] [id number] [address] [place] [address] Dec, Back pain M54.9 [facility] [address] [facility] [id number] [address] [place] [phone] Dec, Foot infection L08.9 and 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 [facility] [address] [facility] [id number] [address] [place] [address] Nov, Cellulitis of toe of right f oot L03.031 ; Polyneuropathy in diseases classified elsewhere G63 and HTN (hypertension) I10 [facility] [address] [facility] [id number] [address] [place] [phone] Nov, [facility] [address] [id number] [address] [place] [address], [place] [address] Nov, [facility] [address] [id number] [address] [place] [address] Nov, Back pain M54.9 [facility] [address] [id number] [address] [place] [address], [place] [address] Nov, Shortness of breath R06.02 [facility] [address] [id number] [address] [place] [address], [place] [address] Nov, [facility] [address] [id number] [address] [place] [address], [place] [address] Oct, [facility] [address] [id number] [address] [place] [address], [place] [address] Oct, [facility] [address] [id number] [address] [place] [address], [place] [address] Oct, [facility] [address] [id number] [address] [place] [phone] Oct, [facility] [address] [id number] [address] [place] [address], [place] [address] Oct, [facility] [address] [id number] [address] [place] [address] Oct, Back pain M54.9 [facility] [address] [id number] [address] [place] [address] Oct, Back pain M54.9 [facility] [address] [id number] [address] [place] [phone] Oct, [facility] [address] [id number] [address] [place] [phone] September, [facility] [address] [id number] [address] [place] [phone] September, [facility] [address] [id number] [address] [place] [phone] September, [facility] [address] [id number] [address] [place] [address] September, 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 and Hypotension, unspecified hypotension type I95.9 [facility] [address] [id number] [address] [place] [address] September, [facility] [address] [facility] [id number] [address] [place] [id number] September, [facility] [address] [id number] [address] [place] [phone] September, Back pain M54.9 [facility] [address] [facility] [id number] [address] [place] [phone] Aug, [facility] [address] [facility] [id number] [address] [place] [address] Aug, Acute cystitis with hematuri a N30.01 ; Ulcer of right foot, unspecified ulcer stage L97.519 ; HTN (hypertension) I10 ; COPD (chronic obstructive pulmonary disease) J44.9 and DM neuro manif type II E11.49 [facility] [address] [id number] [address] [place] [address] Aug, Back pain M54.9 [facility] [address] [facility] [id number] [address] [place] [address] Jul, [facility] [address] [facility] [id number] [address] [place] [address] Jul, Back pain M54.9 [facility] [address] [id number] [address] [place] [address] Jul, [facility] [address] [facility] [id number] [address] [place] [address] Jul, DM neuro manif type II E11.4 9 and Ulcer of right foot, unspecified ulcer stage L97.519 [facility] [address] [facility] [id number] [address] [place] [address] Jun, [facility] [address] [id number] [address] [place] [address] Jun, [facility] [address] [facility] [id number] [address] [place] [address] May, 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 ; GERD (gastroesophageal reflux disease) K21.9 and PAD (peripheral artery disease) I73.9 [facility] [address] [facility] [id number] [address] [place] [address] May, Decubital ulcer L89.90 ; Nathalia betes E11.9 and GERD (gastroesophageal reflux disease) K21.9 [facility] [address] [id number] [address] [place] [phone] May, [facility] [address] [facility] [id number] [place] [address] Apr, [facility] [address] [facility] [id number] [address] [place] [phone] Mar, [facility] [address] [facility] [id number] [address] [place] [address] Mar, [facility] [address] [facility] [id number] [address] [place] [phone] Feb, [facility] [address] [place] [id number] [address] [place] [address] Feb, [facility] [address] [facility] [id number] [address] [place] [phone] Jan, [facility] [address] [facility] [id number] [address] [place] [address] Jan, HTN (hypertension) I10 [facility] [address] [facility] [id number] [address] [place] [address] Jan, [facility] [address] [facility] [id number] [address] [place] [address] Dec, Back pain M54.9 [facility] [address] [id number] [address] [place] [address] Dec, Back pain M54.9 [facility] [address] [id number] [address] [place] [address] Dec, Encounter for immunization Z 23 and Puncture wound of right foot, initial encounter S91.331A [facility] [address] [id number] [address] [place] [address] Dec, [facility] [address] [id number] [address] [place] [address] Nov, [facility] [address] [id number] [address] [place] [address] Nov, COPD (chronic obstructive pu lmonary disease) J44.9 [facility] [address] [facility] [id number] [address] [place] [phone] Nov, [facility] [address] [facility] [id number] [address] [place] [phone] Oct, [facility] [address] [facility] [id number] [address] [place] [phone] Oct, [facility] [address] [facility] [id number] [address] [place] [phone] September, Onychomycosis B35.1 and DM n euro manif type II E11.49 [facility] [address] [facility] [id number] [address] [place] [address] September, [facility] [address] [facility] [id number] [address] [place] [address] Aug, [facility] [address] [facility] [id number] [address] [place] [address] Jul, Sinusitis, unspecified chron icity, unspecified location J32.9 and Cough R05 [facility] [address] [facility] [id number] [address] [place] [address] Jul, Back pain M54.9 [facility] [address] [facility] [id number] [address] [place] [id number] 14 Jun, 2016 Back pain M54.9 [facility] [address] [facility] [id number] [address] [place] [address] 06 Jun, 2016 COPD (chronic obstructive pu lmonary disease) J44.9 [facility] [address] [facility] [id number] [address] [place] [phone] 17 May, 2016 [facility] [address] [facility] [id number] [address] [place] [address] May, [facility] [address] [facility] [id number] [address] [place] [phone] May, Back pain M54.9 [facility] [address] [facility] [id number] [address] [place] [phone] 16 May, 2016 [place] [address] [place] [id number] [address] [place] [id number] May, [facility] [address] [facility] [id number] [address] [place] [phone] May, Diabetes E11.9 [facility] [address] [place] [id number] [address] [place] [id number] 11 May, 2016 Diabetes E11.9 ; GERD [...] Need for hepatitis C screening test Z11.59 [place] [address] [facility] [id number] [address] [place] [id number] May, HTN (hypertension) I10 [facility] [address] [id number] [address] [place] [id number] Apr, [facility] [address] [id number] [address] [place] [id number] Apr, [facility] [address] [id number] [address] [place] [id number] Apr, [facility] [address] [id number] [address] [place] [id number] Apr, [facility] [address] [id number] [address] [place] [id number] Apr, [facility] [address] [id number] [address] [place] [id number] Mar, [facility] [address] [id number] [address] [place] [id number] Mar, [facility] [address] [id number] [address] [place] [id number] Mar, [facility] [address] [id number] [address] [place] [id number] Mar, [facility] [address] [id number] [address] [place] [id number] Mar, Dental examination Z01.20 [facility] [address] [id number] [address] [place] [id number] Feb, [facility] [address] [id number] [address] [place] [id number] Feb, [facility] [address] [id number] [address] [place] [id number] Feb, Back pain M54.9 [facility] [address] [id number] [address] [place] [id number] Jan, [facility] [address] [id number] [address] [place] [id number] Jan, [facility] [address] [facility] [place] [id number] [address] [place] [id number] Dec, Diabetes E11.9 ; GERD (gastr oesophageal reflux disease) K21.9 ; ED (erectile dysfunction) N52.9 ; HTN (hypertension) I10 ; Insomnia G47.00 ; COPD (chronic obstructive pulmonary disease) J44.9 ; Neuropathy G62.9 and Bipolar depression F31.30 [facility] [address] [id number] [address] [place] [id number] Dec, 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 and Onychomycosis B35.1 [facility] [address] [id number] [address] [place] [phone] Dec, [facility] [address] [id number] [address] [place] [phone] Dec, [facility] [address] [id number] [address] [place] [phone] Dec, [facility] [address] [id number] [address] [place] [phone] Dec, [facility] [address] [id number] [address] [place] [id number] Nov, [facility] [address] [id number] [address] [place] [phone] Nov, [facility] [address] [facility] [place] [id number] [address] [place] [phone] Oct, [facility] [address] [id number] [address] [place] [id number] Oct, [facility] [address] [facility] [place] [id number] [address] [place] [id number] Oct, Back pain M54.9 [facility] [address] [id number] [address] [place] [id number] Oct, [facility] [address] [facility] [id number] [address] [place] [phone] Oct, [facility] [address] [id number] [address] [place] [id number] Oct, [facility] [address] [id number] [address] [place] [phone] Oct, HTN (hypertension) I10 [facility] [address] [id number] [address] [place] [id number] Oct, Back pain M54.9 [facility] [address] [id number] [address] [place] [id number] Oct, Chronic pain syndrome G89.4 [facility] [address] [id number] [address] [place] [phone] September, Back pain M54.9 [facility] [address] [id number] [address] [place] [phone] September, HTN (hypertension) I10 [facility] [id number] [place] [phone] Aug, Porokeratosis Q82.8 ; Onycho mycosis B35.1 and Type 2 diabetes mellitus with other diabetic neurological complication E11.49 [facility] [address] [id number] [address] [place] [id number] Aug, GERD (gastroesophageal reflu x disease) K21.9 ; Diabetes E11.9 ; HTN (hypertension) I10 ; Insomnia G47.00 ; Restless legs syndrome G25.81 ; COPD (chronic obstructive pulmonary disease) J44.9 ; Back pain M54.9 and Bipolar 1 disorder F31.9 [facility] [address] [id number] [address] [place] [phone] Aug, [facility] [address] [id number] [address] [place] [phone] Aug, [facility] [address] [id number] [address] [place] [phone] Aug, [facility] [address] [id number] [address] [place] [phone] Aug, [facility] [address] [id number] [address] [place] [phone] Jul, [facility] [address] [facility] [id number] [address] [place] [id number] 31 Jul, 2015 [facility] [address] [facility] [id number] [address] [place] [id number] 30 Jul, 2015 [facility] [address] [facility] [id number] [address] [place] [id number] 16 Jul, 2015 [facility] [address] [facility] [id number] [address] [place] [phone] 15 Jul, 2015 [facility] [address] [facility] [id number] [address] [place] [id number] Jul, [facility] [id number] [place] [id number] 17 Jun, 2015 Decubital ulcer L89.90 ; Nathalia betes E11.9 ; Back pain M54.9 ; HTN (hypertension) I10 and COPD (chronic obstructive pulmonary disease) J44.9 [facility] [address] [facility] [id number] [address] [place] [phone] Jun, [facility] [address] [id number] [address] [place] [phone] Jun, [facility] [address] [id number] [address] [place] [phone] Jun, [facility] [id number] [place] [phone] Jun, [facility] [address] [facility] [id number] [address] [place] [phone] Jun, Diabetes E11.9 ; Insomnia G4 7.00 ; Decubital ulcer L89.90 ; GERD (gastroesophageal reflux disease) K21.9 ; Back pain M54.9 ; Superficial fungus infection of skin B36.9 and HTN (hypertension) I10 [address] [id number] [place] [id number] Jun, 2015 Dental examination Z01.20 [facility] [address] [id number] [address] [place] [phone] May, [facility] [address] [facility] [id number] [address] [place] [phone] May, [facility] [address] [facility] [id number] [address] [place] [phone] May, [facility] [id number] [place] [phone] May, Diabetes E11.9 ; HTN (hypert ension) I10 and Decubital ulcer L89.90 [facility] [address] [facility] [id number] [address] [place] [id number] May, HTN (hypertension) I10 ; Dec ubital ulcer L89.90 and Diabetes E11.9 [place] [address] [id number] [address] [place] [phone] Apr, Diabetes E11.9 ; GERD (gastr oesophageal reflux disease) K21.9 ; Back pain M54.9 ; HTN (hypertension) I10 ; Restless legs syndrome G25.81 and Decubital ulcer L89.90 [facility] [address] [id number] [address] [place] [phone] Apr, [facility] [address] [id number] [address] [place] [id number] Apr, Diabetes E11.9 ; HTN (hypert ension) I10 ; Restless legs syndrome G25.81 ; GERD (gastroesophageal reflux disease) K21.9 and COPD (chronic obstructive pulmonary disease) J44.9 [facility] [address] [facility] [id number] [address] [place] [id number] Mar, [facility] [address] [id number] [address] [place] [phone] Mar, [facility] [address] [id number] [address] [place] [phone] Mar, Diabetes E11.9 ; Abscess L02 .91 and Restless legs syndrome G25.81 [place] [address] [id number] Mar, [address] [address] Feb, GERD (gastroesophageal reflu x disease) K21.9 ; Back pain M54.9 ; ED (erectile dysfunction) N52.9 ; Diabetes E11.9 ; HTN (hypertension) I10 and Insomnia G47.00 [place] [address] [id number] Feb, [place] [address] [id number] Feb, [place] [address] [address] Jan, [address] [address] Jan, Diabetes 250.00 ; Nondepende nt cannabis abuse, continuous 305.21 ; Cough 786.2 ; Schizoaffective disorder, unspecified 295.70 ; Sciatica 724.3 ; Other, mixed, or unspecified nondependent drug abuse, unspecified 305.90 ; Chronic pain 338.29 ; GERD (gastroesophageal reflux disease) 530.81 and HTN (hypertension) 401.[address] [address] Jan, [address] [address] Jan, [address] [address] Jan, Chronic pain associated with significant psychosocial dysfunction 338.4 ; Diabetes mellitus without mention of complication, type I [juvenile type], uncontrolled 250.03 ; Benign essential hypertension 401.1 ; Schizoaffective disorder, unspecified 295.70 ; Wheezing 786.07 ; Ear ache 388.70 ; Cough 786.2 ; Sciatica 724.3 and Foot pain, bilateral 729.5 [place] [address] [id number] [address] [place] [phone] Dec, [facility] [address] [id number] [address] [place] [phone] Dec, [facility] [address] [id number] [address] [place] [id number] Dec, [facility] [address] [id number] [address] [place] [id number] Dec, [facility] [address] [id number] [address] [place] [id number] Dec, [facility] [address] [id number] [address] [place] [id number] Nov, Elevated liver enzymes 790.5 [facility] [address] [id number] [address] [place] [phone] Nov, [facility] [address] [id number] [address] [place] [phone] Nov, [facility] [address] [id number] [address] [place] [phone] Nov, [facility] [address] [facility] [id number] [address] [place] [phone] Nov, Benign essential hypertensio n 401.1 ; Diabetes mellitus without mention of complication, type I [juvenile type], uncontrolled 250.03 and Nondependent cannabis abuse, continuous 305.21 [facility] [address] [id number] [address] [place] [address] Oct, Cellulitis 682.9 and Benign essential hypertension 401.1 [facility] [address] [id number] [address] [place] [phone] Oct, [facility] [address] [id number] [address] [place] [phone] September, [facility] [address] [facility] [id number] [address] [place] [phone] September, [facility] [address] [id number] [address] [place] [address], [place] [address] Aug, [facility] [address] [id number] [address] [place] [address], [place] [address] Aug, [facility] [address] [id number] [address] [place] [address], [place] [address] Aug, [facility] [address] [id number] [address] [place] [address], [place] [address] Aug, [facility] [address] [id number] [address] [place] [address], [place] [address] Jul, [facility] [address] [id number] [address] [place] [address], [place] [address] Jul, [facility] [address] [id number] [address] [place] [address], [place] [address] Jul, [facility] [address] [id number] [address] [place] [address], [place] [address] Jul, [facility] [address] [id number] [address] [place] [address], [place] [address] Jul, [facility] [address] [id number] [address] [place] [address], [place] [address] Jul, [facility] [address] [id number] [address] [place] [address], [place] [address] Jun, [facility] [address] [id number] [address] [place] [address], [place] [address] Jun, [facility] [address] [id number] [address] [place] [address], [place] [address] Jun, [facility] [address] [id number] [address] [place] [address], [place] [address] Jun, [facility] [address] [id number] [address] [place] [address], [place] [address] Jun, [facility] [address] [id number] [address] [place] [address], [place] [address] May, [facility] [address] [id number] [address] [place] [address], [place] [address] May, [facility] [address] [id number] [address] [place] [address], [place] [address] May, [facility] [address] [id number] [address] [place] [address], [place] [address] May, [facility] [address] [id number] [address] [place] [address], [place] [address] May, [facility] [address] [id number] [address] [place] [address], [place] [address] May, [facility] [address] [id number] [address] [place] [address], [place] [address] May, [facility] [address] [id number] [address] [place] [address], [place] [address] May, [facility] [address] [id number] [address] [place] [address], [place] [address] Apr, [facility] [address] [id number] [address] [place] [address], [place] [address] Apr, [facility] [address] [id number] [address] [place] [address], [place] [address] Apr, [facility] [address] [id number] [address] [place] [address], [place] [address] Apr, [facility] [address] [id number] [address] [place] [address], [place] [address] Mar, [facility] [address] [id number] [address] [place] [address], [place] [address] Mar, [facility] [address] [id number] [address] [place] [address], [place] [address] Mar, [facility] [address] [id number] [address] [place] [address], [place] [address] Mar, [facility] [address] [id number] [address] [place] [address], [place] [address] Feb, [facility] [address] [id number] [address] [place] [address], [place] [address] Feb, [facility] [address] [id number] [address] [place] [address], [place] [address] Feb, [facility] [address] [id number] [address] [place] [address], [place] [address] Feb, [facility] [address] [id number] [address] [place] [address], [place] [address] Feb, [facility] [address] [id number] [address] [place] [address], [place] [address] Feb, [facility] [address] [id number] [address] [place] [address], [place] [address] Jan, [facility] [address] [id number] [address] [place] [address], [place] [address] Jan, [facility] [address] [id number] [address] [place] [address], [place] [address] Jan, [facility] [address] [id number] [address] [place] [address], [place] [address] Jan, [facility] [address] [id number] [address] [place] [address], [place] [address] Dec, [facility] [address] [id number] [address] [place] [address], [place] [address] Dec, [facility] [address] [id number] [address] [place] [address], [place] [address] Dec, [facility] [address] [id number] [address] [place] [address], [place] [address] Dec, [facility] [address] [id number] [address] [place] [address], [place] [address] Dec, [facility] [address] [id number] [address] [place] [address], [place] [address] Dec, [facility] [address] [id number] [address] [place] [address], [place] [address] Oct, [facility] [address] [id number] [address] [place] [address], [place] [address] Oct, [facility] [address] [id number] [address] [place] [address], [place] [address] September, [facility] [address] [id number] [address] [place] [address], [place] [address] September, [facility] [address] [id number] [address] [place] [address], [place] [address] September, [facility] [address] [id number] [address] [place] [address], [place] [address] September, [facility] [address] [id number] [address] [place] [address], [place] [address] September, [facility] [address] [id number] [address] [place] [address], [place] [address] September, [facility] [address] [id number] [address] [place] [address], [place] [address] Aug, [facility] [address] [id number] [address] [place] [address], [place] [address] Aug, [facility] [address] [id number] [address] [place] [address], [place] [address] Aug, [facility] [address] [id number] [address] [place] [address], [place] [address] Aug, [facility] [address] [id number] [address] [place] [address], [place] [address] Jul, [facility] [address] [id number] [address] [place] [address], [place] [address] Jul, [facility] [address] [id number] [address] [place] [address], [place] [address] 24 Jun, 2013 [facility] [address] [id number] [address] [place] [address], [place] [address] Jun, [facility] [address] [id number] [address] [place] [address], [place] [address] May, [facility] [address] [id number] [address] [place] [address], [place] [address] May, [facility] [address] [id number] [address] [place] [address], [place] [address] Jan, [facility] [address] [id number] [address] [place] [address], [place] [address] Dec, [facility] [address] [id number] [address] [place] [address], [place] [address] Jun, [facility] [address] [id number] [address] [place] [address], [place] [address] May, [facility] [address] [id number] [address] [place] [address], [place] [address] Nov, [facility] [address] [id number] [address] [place] [address], [place] [address] September, [facility] [address] [id number] [address] [place] [address], [place] [address] Aug, [facility] [address] [id number] [address] [place] [address], [place] [address] Aug, [facility] [address] [id number] [address] [place] [address], [place] [address] Aug, [facility] [address] [id number] [address] [place] [address], [place] [address] Aug, [facility] [address] [id number] [address] [place] [address], [place] [address] Nov, [facility] [address] [id number] [address] [place] [address], [place] [address] Oct, [facility] [address] [id number] [address] [place] [address], [place] [address] Jul, [facility] [address] [id number] [address] [place] [id number] Feb, [facility] [address] [id number] [address] [place] [phone] Feb, [facility] [address] [id number] [address] [place] [phone] Apr, [facility] [address] [id number] [address] [place] [phone] Apr, [facility] [address] [id number] [address] [place] [phone] Feb, [facility] [address] [id number] [address] [place] [phone] Feb, [facility] [address] [id number] [address] [place] [id number] Jul, IMMUNIZATIONS No Known Immunizations SOCIAL HISTORY [...]
--- OUTSIDE RECORDS SUMMARY | 2019-11-30 18:50 | XMS REPORT | Continuity of Care Document ---
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 CHRONIC ULCER OF OTHER PART OF UNSPECIFIED FOOT WITH UNSPECIFIED SEVERITY 08/28/2017 Pablo, Berenice-Andrzej W N30.91 CYSTITIS, UNSPECIFIED WITH HEMATURIA 08/29/2017 Pablo, Berenice-Andrzej W 276.1 HYPOSMOLALITY AND/OR HYPONATREMIA 08/29/2017 Pablo, Berenice-Andrzej W 401.9 UNSPECIFIED ESSENTIAL HYPERTENSION 08/29/2017 Pablo, Berenice-Andrzej W 595.9 CYSTITIS, UNSPECIFIED 08/29/2017 Pablo, Berenice-Andrzej W 707.15 ULCER OF OTHER PART OF FOOT 08/29/2017 Pablo, Berenice-Andrzej W E87.1 HYPO- OSMOLALITY AND HYPONATREMIA 08/29/2017 Pbalo, Berenice-Andrzej W I10 ESSENTIAL (PRIMARY) HYPERTENSION 08/29/2017 Pablo, Berenice-Andrzej W L97.509 NON- PRESSURE CHRONIC ULCER OF OTHER PART OF UNSPECIFIED FOOT WITH UNSPECIFIED SEVERITY 08/29/2017 Pablo, Berenice-Andrzej W N30.91 CYSTITIS, UNSPECIFIED WITH HEMATURIA 08/29/2017 Pablo, Berenice-Andrzej W 276.1 HYPOSMOLALITY AND/OR HYPONATREMIA 08/29/2017 Pablo, Berenice-Andrzej W 401.9 UNSPECIFIED ESSENTIAL HYPERTENSION 08/29/2017 Pablo, Berenice-Andrzej W 595.9 CYSTITIS, UNSPECIFIED 08/29/2017 Pablo, Berenice-Andrzej W 707.15 ULCER OF OTHER PART OF FOOT 08/29/2017 Pablo, Berenice-Andrzej W E87.1 HYPO- OSMOLALITY AND HYPONATREMIA 08/29/2017 Pablo, Berenice-Andrzej W I10 ESSENTIAL (PRIMARY) HYPERTENSION 08/29/2017 Pablo, Berenice-Andrzej W L97.509 NON- PRESSURE CHRONIC ULCER OF OTHER PART OF UNSPECIFIED FOOT WITH UNSPECIFIED SEVERITY 08/29/2017 Pablo, Berenice-Andrzej W N30.91 CYSTITIS, UNSPECIFIED WITH HEMATURIA 08/29/2017 Pablo, Berenice-Andrzej W 276.1 HYPOSMOLALITY AND/OR HYPONATREMIA 08/29/2017 Pablo, Berenice-Andrzej W 401.9 UNSPECIFIED ESSENTIAL HYPERTENSION 08/29/2017 Pablo, Berenice-Andrzej W 595.9 CYSTITIS, UNSPECIFIED 08/29/2017 Pablo, Berenice-Andrzej W 707.15 ULCER OF OTHER PART OF FOOT 08/29/2017 Pablo, Berenice-Andrzej W E87.1 HYPO- OSMOLALITY AND HYPONATREMIA 08/29/2017 Pablo, Berenice-Andrzej W I10 ESSENTIAL (PRIMARY) HYPERTENSION 08/29/2017 Pablo, Berenice-Andrzej W L97.509 NON- PRESSURE CHRONIC ULCER OF OTHER PART OF UNSPECIFIED FOOT WITH UNSPECIFIED SEVERITY 08/29/2017 Pablo, Berenice-Andrzej W N30.91 CYSTITIS, UNSPECIFIED WITH HEMATURIA 08/29/2017 Pablo, Berenice-Andrzej W 276.1 HYPOSMOLALITY AND/OR HYPONATREMIA 08/29/2017 Pablo, Berenice-Andrzej W 401.9 UNSPECIFIED ESSENTIAL HYPERTENSION 08/29/2017 Pablo, Berenice-Andrzej W 595.9 CYSTITIS, UNSPECIFIED 08/29/2017 Pablo, Berenice-Andrzej W 707.15 ULCER OF OTHER PART OF FOOT 08/29/2017 Pablo, Berenice-Andrzej W E87.1 HYPO- OSMOLALITY AND HYPONATREMIA 08/29/2017 Pablo, Berenice-Andrzej W I10 ESSENTIAL (PRIMARY) HYPERTENSION 08/29/2017 Pablo, Berenice-Andrzej W L97.509 NON- PRESSURE CHRONIC ULCER OF OTHER PART OF UNSPECIFIED FOOT WITH UNSPECIFIED SEVERITY 08/29/2017 Pablo, Berenice-Andrzej W N30.91 CYSTITIS, UNSPECIFIED WITH HEMATURIA 08/29/2017 Pablo, Berenice-Andrzej W 276.1 HYPOSMOLALITY AND/OR HYPONATREMIA 08/29/2017 Pablo, Berenice-Andrzej W 401.9 UNSPECIFIED ESSENTIAL HYPERTENSION 08/29/2017 Pablo, Berenice-Andrzej W 595.9 CYSTITIS, UNSPECIFIED 08/29/2017 Pablo, Berenice-Andrzej W 707.15 ULCER OF OTHER PART OF FOOT 08/29/2017 Pablo, Berenice-Andrzej W E87.1 HYPO- OSMOLALITY AND HYPONATREMIA 08/29/2017 Pablo, Berenice-Andrzej W I10 ESSENTIAL (PRIMARY) HYPERTENSION 08/29/2017 Pablo, Berenice-Andrzej W L97.509 NON- PRESSURE CHRONIC ULCER OF OTHER PART OF UNSPECIFIED FOOT WITH UNSPECIFIED SEVERITY 08/29/2017 Palbo, Berenice-Andrzej W N30.91 CYSTITIS, UNSPECIFIED WITH HEMATURIA 08/29/2017 Pablo, Berenice-Andrzej W 276.1 HYPOSMOLALITY AND/OR HYPONATREMIA 08/29/2017 Pablo, Berenice-Andrzej W 401.9 UNSPECIFIED ESSENTIAL HYPERTENSION 08/29/2017 Pablo, Berenice-Andrzej W 595.9 CYSTITIS, UNSPECIFIED 08/29/2017 Pablo, Berenice-Andrzej W 707.15 ULCER OF OTHER PART OF FOOT 08/29/2017 Pablo, Berenice-Andrzej W 786.2 08/29/2017 Pablo, Berenice-Andrzej W E87.1 HYPO- OSMOLALITY AND HYPONATREMIA 08/29/2017 Pablo, Berenice-Andrzej W I10 ESSENTIAL (PRIMARY) HYPERTENSION 08/29/2017 Pablo, Berenice-Andrzej W L97.509 NON- PRESSURE CHRONIC ULCER OF OTHER PART OF UNSPECIFIED [...] W 786.2 08/29/2017 Pablo, Berenice-Andrzej W E87.1 HYPO- OSMOLALITY AND HYPONATREMIA 08/29/2017 Pablo, Berenice-Andrzej W I10 ESSENTIAL (PRIMARY) HYPERTENSION 08/29/2017 Pablo, Berenice-Andrzej W L97.509 NON- PRESSURE CHRONIC ULCER OF OTHER PART OF UNSPECIFIED FOOT WITH UNSPECIFIED SEVERITY 08/29/2017 Pablo, Berenice-Andrzej W N30.91 CYSTITIS, UNSPECIFIED WITH HEMATURIA 08/29/2017 Apblo, Berenice-Andrzej W R05 COUGH 08/29/2017 Pablo, Berenice-Andrzej W 276.1 HYPOSMOLALITY AND/OR HYPONATREMIA 08/29/2017 Pablo, Berenice-Andrzej W 401.9 UNSPECIFIED ESSENTIAL HYPERTENSION 08/29/2017 Pablo, Berenice-Andrzej W 535.00 08/29/2017 Pablo, Berenice-Andrzej W 595.9 CYSTITIS, UNSPECIFIED 08/29/2017 Pabol, Berenice-Andrzej W 707.15 08/29/2017 Pablo, Berenice-Andrzej W 786.2 08/29/2017 Pablo, Berenice-Andrzej W E87.1 HYPO- OSMOLALITY AND HYPONATREMIA 08/29/2017 Pablo, Berenice-Andrzej W I10 ESSENTIAL (PRIMARY) HYPERTENSION 08/29/2017 Pablo, Berenice-Andrzej W K29.00 ACUTE GASTRITIS WITHOUT BLEEDING 08/29/2017 Pablo, Berenice-Andrzej W L97.509 NON- PRESSURE CHRONIC ULCER OF OTHER PART OF UNSPECIFIED [...] W 786.2 08/29/2017 Pablo, Berenice-Andrzej W E87.1 HYPO- OSMOLALITY AND HYPONATREMIA 08/29/2017 Pablo, Berenice-Andrzej W I10 ESSENTIAL (PRIMARY) HYPERTENSION 08/29/2017 Pablo, Berenice-Andrzej W K29.00 ACUTE GASTRITIS WITHOUT BLEEDING 08/29/2017 Pablo, Berenice-Andrzej W L97.509 NON- PRESSURE CHRONIC ULCER OF OTHER PART OF UNSPECIFIED [...] W 786.2 08/29/2017 Pablo, Berenice-Andrzej W E87.1 HYPO- OSMOLALITY AND HYPONATREMIA 08/29/2017 Pablo, Berenice-Andrzej W I10 ESSENTIAL (PRIMARY) HYPERTENSION 08/29/2017 Pablo, Berenice-Andrzej W K29.00 ACUTE GASTRITIS WITHOUT BLEEDING 08/29/2017 Pablo, Berenice-Andrzej W L97.509 NON- PRESSURE CHRONIC ULCER OF OTHER PART OF UNSPECIFIED [...] W 786.2 08/29/2017 Pablo, Berenice-Andrzej W E87.1 HYPO- OSMOLALITY AND HYPONATREMIA 08/29/2017 Pablo, Berenice-Andrzej W I10 ESSENTIAL (PRIMARY) HYPERTENSION 08/29/2017 Pablo, Berenice-Andrzej W K29.00 ACUTE GASTRITIS WITHOUT BLEEDING 08/29/2017 Pablo, Berenice-Andrzej W L97.509 NON- PRESSURE CHRONIC ULCER OF OTHER PART OF UNSPECIFIED FOOT WITH UNSPECIFIED SEVERITY 08/29/2017 Pablo, Berenice-Andrzej W N30.91 CYSTITIS, UNSPECIFIED WITH HEMATURIA 08/29/2017 Pablo, Berenice-Andrzej W R05 COUGH 08/30/2017 Pablo, Berenice-Andrzej W 041.19 08/30/2017 Pablo, Berenice-Andrzej W 276.1 HYPOSMOLALITY AND/OR HYPONATREMIA 08/30/2017, Berenice-Andrzej W 305.20 08/30/2017 Pablo, Berenice-Andrzej W 305.70 08/30/2017 Pablo, Berenice-Andrzej W 401.9 UNSPECIFIED ESSENTIAL HYPERTENSION 08/30/2017, Berenice-Andrzej W 535.00 08/30/2017 Pablo, Berenice-Andrzej A 595.0 08/30/2017, Berenice-Andrzej W 595.9 CYSTITIS, UNSPECIFIED 08/30/2017 Pablo, Berenice-Andrzej W 707.15 08/30/2017 Pablo, Berenice-Andrzej W 786.2 08/30/2017 Pablo, Berenice-Andrzej W B95.7 OTH STAPHYLOCOCCUS THE CAUSE OF DISEASES CLASSD ELSWHR 08/30/2017 Pablo, Berenice-Andrzej W E87.1 HYPO- OSMOLALITY AND HYPONATREMIA 08/30/2017 Pablo, Berenice-Andrzej W F12.10 CANNABIS ABUSE, UNCOMPLICATED 08/30/2017 Pablo, Berenice-Andrzej W F15.10 OTHER STIMULANT ABUSE, UNCOMPLICATED 08/30/2017 Pablo, Berenice-Andrzej W I10 ESSENTIAL (PRIMARY) HYPERTENSION 08/30/2017 Pablo, Berenice-Andrzej W K29.00 ACUTE GASTRITIS WITHOUT BLEEDING 08/30/2017 Shi Pablou W L97.509 NON- PRESSURE CHRONIC ULCER OF OTHER PART OF UNSPECIFIED FOOT WITH UNSPECIFIED SEVERITY 08/30/2017 Nataly Pablo W L97.511 NON- PRS CHRONIC ULCER OTH PRT R FOOT LIMITED TO BRKDWN SKIN 08/30/2017 Nataly Pablo A N30.01 ACUTE CYSTITIS WITH HEMATURIA 08/30/2017 Nataly Pablo W N30.91 CYSTITIS, UNSPECIFIED WITH HEMATURIA 08/30/2017 Nataly Pablo W R05 COUGH 09/14/2017 Juliana Buckner W 276.1 HYPOSMOLALITY AND/OR HYPONATREMIA 09/14/2017 Juliana Buckner W 681.10 CELLULITIS AND ABSCESS OF TOE, UNSPECIFIED 09/14/2017 Lenore Bucknera W 682.6 CELLULITIS AND ABSCESS OF LEG, EXCEPT FOOT 09/14/2017 Juliana Buckner W E87.1 HYPO- OSMOLALITY AND HYPONATREMIA 09/14/2017 Juliana Buckner W L03.031 CELLULITIS OF RIGHT TOE 09/14/2017 Dudley, Juliana W L03.115 CELLULITIS OF RIGHT LOWER LIMB 09/14/2017 Lenore Bucknera W 250.00 DIABETES MELLITUS WITHOUT MENTION OF COMPLICATION, TYPE II OR UNSPECIFIED TYPE, NOT STATED UNCONTROLLED 09/14/2017 Juliana Buckner W 276.1 HYPOSMOLALITY AND/OR HYPONATREMIA 09/14/2017 Dudley, Juliana W 296.80 09/14/2017 Dudley, Juliana W 401.9 09/14/2017 Juliana Buckner W 681.10 CELLULITIS AND ABSCESS OF TOE, UNSPECIFIED 09/14/2017 Lenore Bucknera W 682.6 CELLULITIS AND ABSCESS OF LEG, EXCEPT FOOT 09/14/2017 Juliana Buckner W E11.9 TYPE 2 DIABETES MELLITUS WITHOUT COMPLICATIONS 09/14/2017 Juliana Buckner E87.1 HYPO- OSMOLALITY AND HYPONATREMIA 09/14/2017 Lenore Bucknera W F20 SCHIZOPHRENIA 09/14/2017 Juliana Buckner W F31.9 BIPOLAR DISORDER, UNSPECIFIED 09/14/2017 Juliana Buckner W I10 ESSENTIAL (PRIMARY) HYPERTENSION 09/14/2017 Dudley, [...] 2 DIABETES MELLITUS WITHOUT COMPLICATIONS 09/15/2017 Dudley, Juliaan W E87.1 HYPO- OSMOLALITY AND HYPONATREMIA 09/15/2017 [facility], Juliana W F20 SCHIZOPHRENIA 09/15/2017 [facility], Juliana W F31.9 BIPOLAR DISORDER, UNSPECIFIED 09/15/2017 [facility], Juliana W I10 ESSENTIAL (PRIMARY) HYPERTENSION 09/15/2017 [facility], Juliana W L03.031 CELLULITIS OF RIGHT TOE 09/15/2017 [facility], Juliana W L03.115 CELLULITIS OF RIGHT LOWER LIMB 09/18/2017 [facility], Juliana W 250.00 09/18/2017 [facility], Juliana W 276.1 HYPOSMOLALITY AND/OR HYPONATREMIA 09/18/2017 [facility], Juliana W 280.9 09/18/2017 [facility], Juliana W 296.80 09/18/2017 [facility], Juliana W 305.20 09/18/2017 [facility], Juliana W 305.70 09/18/2017 [facility], Juliana W 401.9 09/18/2017 Dudley, Juliana W 681.10 CELLULITIS AND ABSCESS OF TOE, UNSPECIFIED 09/18/2017 Dudley, Juliana A 682.6 CELLULITIS AND ABSCESS OF LEG, EXCEPT FOOT 09/18/2017 Dudley, Juliana W D50.9 IRON DEFICIENCY ANEMIA, UNSPECIFIED 09/18/2017 Dudley, Juliana W E11.9 TYPE 2 DIABETES MELLITUS WITHOUT COMPLICATIONS 09/18/2017 Dudley, Juliana W E87.1 HYPO- OSMOLALITY AND HYPONATREMIA 09/18/2017 Dudley, Juliana W F12.10 CANNABIS ABUSE, UNCOMPLICATED 09/18/2017 Juliana Buckner W F15.10 OTHER STIMULANT ABUSE, UNCOMPLICATED 09/18/2017 Dudley, Juliana W F20 SCHIZOPHRENIA 09/18/2017 Dudley, Juliana W F31.9 BIPOLAR DISORDER, UNSPECIFIED 09/18/2017 Dudley, Juliana W I10 ESSENTIAL (PRIMARY) HYPERTENSION 09/18/2017 Juliana Buckner W L03.031 CELLULITIS OF RIGHT TOE 09/18/2017 Juliana Buckner A L03.115 CELLULITIS OF RIGHT LOWER LIMB 09/20/2017 KRISTINA RODRÍGUEZ MD R Ot D64.9 ANEMIA, UNSPECIFIED 09/20/2017 KRISTINA RODRÍGUEZ MD Ot E11.4 0 TYPE 2 DIABETES MELLITUS WITH DIABETIC N 09/20/2017 KRISTINA RODRÍGUEZ MD Ot E11.6 21 TYPE 2 DIABETES MELLITUS WITH FOOT ULCER 09/20/2017 KRISTNIA RODRÍGUEZ MD Ot E87.1 HYPO-OSMOLALITY AND HYPONATREMIA 09/20/2017 KRISTINA RODRÍGUEZ MD Ot F15.9 0 OTHER STIMULANT USE, UNSPECIFIED, UNCOMP 09/20/2017 KRISTINA RODRÍGUEZ MD Ot F17.2 10 NICOTINE DEPENDENCE, CIGARETTES, UNCOMPL 09/20/2017 KRISTINA RODRÍGUEZ MD Ot F20.9 SCHIZOPHRENIA, UNSPECIFIED 09/20/2017 KRISTINA RODRÍGUEZ MD Ot F31.9 BIPOLAR DISORDER, UNSPECIFIED 09/20/2017 KRISTINA RODRÍGUEZ MD Ot I10 ESSENTIAL (PRIMARY) HYPERTENSION 09/20/2017 KRISTINA RODRÍGUEZ MD Ot I87.2 VENOUS INSUFFICIENCY (CHRONIC) (PERIPHER 09/20/2017 KRISTINA RODRÍGUEZ MD Ot L03.0 31 CELLULITIS OF RIGHT TOE 09/20/2017 KRISTINA RODRÍGUEZ MD Ot L03.1 15 CELLULITIS OF RIGHT LOWER LIMB 09/20/2017 KRISTINA RODRÍGUEZ MD Ot L97.4 19 NON-PRS CHR ULCER OF RIGHT HEEL AND MIDF 09/20/2017 KRISTINA RODRÍGUEZ MD Ot L97.5 19 NON-PRS CHRONIC ULCER OTH [...] V62.84 LINDSAY CIDAL IDEATION 09/25/2017 WERNER DRIVER STEEP TENDER Ot E11.621 TYPE 2 DIABETES MELLITUS WITH FOOT ULCER 09/25/2017 WERNER DRIVER STEEP TENDER Ot F12.90 CANNABIS USE, UNSPECIFIED, UNCOMPLICATED 09/25/2017 WERNER DRIVER STEEP TENDER Ot F15.90 OTHER STIMULANT USE, UNSPECIFIED, UNCOMP 09/25/2017 WERNER DRIVER STEEP TENDER Ot F20 .9 SCHIZOPHRENIA, UNSPECIFIED 09/25/2017 WERNER DRIVER STEEP TENDER Ot F22 DELUSIONAL DISORDERS 09/25/2017 WERNER DRIVER STEEP TENDER Ot F31 .9 BIPOLAR DISORDER, UNSPECIFIED 09/25/2017 WERNER DRIVER STEEP TENDER Ot L97.519 NON-PRS CHRONIC ULCER OTH PRT RIGHT FOOT 09/25/2017 WERNER DRIVER STEEP TENDER Ot Z89.421 ACQUIRED ABSENCE OF OTHER RIGHT [...] F20 .9 SCHIZOPHRENIA, UNSPECIFIED 10/02/2017 CLAY BRENNAN MD, Ot L97.514 NON-PRS CHRONIC ULCER OTH PRT RIGHT FOOT 10/02/2017 CLAY BRENNAN MD, Ot M86.271 SUBACUTE OSTEOMYELITIS, RIGHT ANKLE AND 10/05/2017 CLARISSE HERNANDEZ, KEVIN Avila Ot L81. 9 DISORDER OF PIGMENTATION, UNSPECIFIED 10/05/2017 Sherman Lima A 681.10 CELLULITIS AND ABSCESS OF TOE, UNSPECIFIED 10/05/2017 Sherman Lima A L03.03 1 CELLULITIS OF RIGHT TOE 10/07/2017 CLAY BRENNAN MD Ot E11.42 TYPE 2 DIABETES MELLITUS WITH DIABETIC P 10/07/2017 CLAY BRENNAN MD, Ot E11.621 TYPE 2 DIABETES MELLITUS WITH FOOT ULCER 10/07/2017 CLAY BRENNAN MD, Ot F20 .9 SCHIZOPHRENIA, UNSPECIFIED 10/07/2017 CLAY BRENNAN MD, Ot L97.512 NON-PRS CHRONIC ULCER OTH PRT RIGHT FOOT 10/07/2017 CLAY BRENNAN MD, Ot L97.514 NON-PRS CHRONIC ULCER OTH PRT RIGHT FOOT 10/07/2017 CLAY BRENNAN MD, Ot M86.271 SUBACUTE OSTEOMYELITIS, RIGHT ANKLE AND 10/08/2017 UNLISTED, UNLISTED A 681. 10 CELLULITIS AND ABSCESS OF TOE, UNSPECIFIED 10/08/2017 UNLISTED, UNLISTED A L03. 031 CELLULITIS OF RIGHT TOE 10/08/2017 CLARISSE HERNANDEZ, KEVIN Avila Ot L81. 9 DISORDER OF PIGMENTATION, UNSPECIFIED 10/09/2017 KEVIN ROBB MD Ot L81. 9 DISORDER OF PIGMENTATION, UNSPECIFIED 10/19/2017 CLAY BRENNAN MD Ot E11.42 TYPE 2 DIABETES MELLITUS WITH DIABETIC P 10/19/2017 CLAY BRENNAN MD, Ot E11.621 TYPE 2 DIABETES MELLITUS WITH FOOT ULCER 10/19/2017 CLAY BRENNAN MD, Ot F20 .9 SCHIZOPHRENIA, UNSPECIFIED 10/19/2017 CLAY BRENNAN MD, Ot L97.512 NON-PRS CHRONIC ULCER OTH PRT RIGHT FOOT 10/19/2017 CLAY BRENNAN MD Ot L97.514 NON-PRS CHRONIC ULCER OTH PRT RIGHT FOOT 10/19/2017 CLAY BRENNAN MD, Ot M86.271 SUBACUTE OSTEOMYELITIS, RIGHT ANKLE AND 10/21/2017 CLAY BRENNAN MD Ot E11.42 TYPE 2 DIABETES MELLITUS WITH DIABETIC P 10/21/2017 CLAY BRENNAN MD, Ot E11.621 TYPE 2 DIABETES MELLITUS WITH FOOT ULCER 10/21/2017 CLAY BRENNAN MD, Ot F20 .9 SCHIZOPHRENIA, UNSPECIFIED 10/21/2017 CLAY BRENNAN MD Ot L97.514 NON-PRS CHRONIC ULCER OTH PRT RIGHT FOOT 10/21/2017 CLAY BRENNAN MD, Ot M86.271 SUBACUTE OSTEOMYELITIS, RIGHT ANKLE AND 10/21/2017 CLAY BRENNAN MD Ot E11.42 TYPE 2 DIABETES MELLITUS WITH DIABETIC P 10/21/2017 CLAY BRENNAN MD, Ot E11.621 TYPE 2 DIABETES MELLITUS WITH FOOT ULCER 10/21/2017 CLAY BRENNAN MD, Ot L97.514 NON-PRS CHRONIC ULCER OTH PRT RIGHT FOOT 10/22/2017 CLAY BRENNAN MD Ot E11.42 TYPE 2 DIABETES MELLITUS WITH DIABETIC P 10/22/2017 CLAY BRENNAN MD, Ot E11.621 TYPE 2 [...] FOOT ULCER 11/03/2017 CLAY BRENNAN MD, Ot F20 .9 SCHIZOPHRENIA, UNSPECIFIED 11/03/2017 CLAY [...] CHRONIC ULCER OTH PRT RIGHT FOOT 11/03/2017 CALY BRENNAN MD Ot M86.271 SUBACUTE OSTEOMYELITIS, RIGHT ANKLE AND 11/04/2017 CLAY BRENNAN MD Ot E11.42 TYPE 2 DIABETES MELLITUS WITH DIABETIC P 11/04/2017 CLAY BRENNAN MD Ot E11.621 TYPE 2 DIABETES MELLITUS WITH FOOT ULCER 11/04/2017 CLAY BRENNAN MD Ot F20 .9 SCHIZOPHRENIA, UNSPECIFIED 11/04/2017 CLAY BRENNAN MD Ot L97.512 NON-PRS CHRONIC ULCER OTH PRT RIGHT FOOT 11/04/2017 CLAY BRENNAN MD, Ot L97.514 NON-PRS CHRONIC ULCER OTH PRT RIGHT FOOT 11/04/2017 CLAY BRENNAN MD, Ot M86.271 SUBACUTE OSTEOMYELITIS, RIGHT ANKLE AND 11/05/2017 ТАТЬЯНАGRETA BRIDGER A 300.0 0 ANXIETY STATE, UNSPECIFIED 11/05/2017 BRIDGER LAWRENCE W 401.0 MALIGNANT ESSENTIAL HYPERTENSION 11/05/2017 BRIDGER LAWRENCE A F41.9 ANXIETY DISORDER, UNSPECIFIED 11/05/2017 BRIDGER LAWRENCE W I10 ESSENTIAL (PRIMARY) HYPERTENSION 11/06/2017 CLAY BRENNAN MD Ot E11.42 TYPE 2 DIABETES MELLITUS WITH DIABETIC P 11/06/2017 CLAY BRENNAN MD, Ot E11.621 TYPE 2 DIABETES MELLITUS WITH FOOT ULCER 11/06/2017 CLAY BRENNAN MD, Ot F20 .9 SCHIZOPHRENIA, UNSPECIFIED 11/06/2017 CLAY BRENNAN MD, Ot L97.512 NON-PRS CHRONIC ULCER OTH PRT RIGHT FOOT 11/06/2017 CLAY BRENNAN MD, Ot M86.271 SUBACUTE OSTEOMYELITIS, RIGHT ANKLE AND 11/09/2017 CLAY BRENNAN MD Ot E11.42 TYPE 2 DIABETES MELLITUS WITH DIABETIC P 11/09/2017 CLAY BRENNAN MD, Ot E11.621 TYPE 2 DIABETES MELLITUS WITH FOOT ULCER 11/09/2017 CLAY BRENNAN MD, Ot F20 .9 SCHIZOPHRENIA, UNSPECIFIED 11/09/2017 CLAY BRENNAN MD Ot L97.512 NON-PRS CHRONIC ULCER OTH PRT RIGHT FOOT 11/09/2017 CLAY BRENNAN MD Ot L97.514 NON-PRS CHRONIC ULCER OTH PRT RIGHT FOOT 11/09/2017 CLAY BRENNAN MD Ot M86.271 SUBACUTE OSTEOMYELITIS, RIGHT ANKLE AND 11/10/2017 CLAY BRENNAN MD Ot E11.42 TYPE 2 DIABETES MELLITUS WITH DIABETIC P 11/10/2017 CLAY BRENNAN MD Ot E11.621 TYPE 2 DIABETES MELLITUS WITH FOOT ULCER 11/10/2017 CLAY BRENNAN MD, Ot F20 .9 SCHIZOPHRENIA, UNSPECIFIED 11/10/2017 CLAY BRENNAN MD Ot L97.512 NON-PRS CHRONIC ULCER OTH PRT RIGHT FOOT 11/10/2017 CLAY BRENNAN MD Ot M86.271 SUBACUTE OSTEOMYELITIS, RIGHT ANKLE AND 11/10/2017 UNLISTED, UNLISTED W 250. 80 11/10/2017 UNLISTED, UNLISTED W 295. 90 UNSPECIFIED SCHIZOPHRENIA, UNSPECIFIED STATE 11/10/2017 UNLISTED, UNLISTED W 491. 20 OBSTRUCTIVE CHRONIC BRONCHITIS, WITHOUT EXACERBATION 11/10/2017 UNLISTED, UNLISTED A 681. 10 CELLULITIS AND ABSCESS OF TOE, UNSPECIFIED 11/10/2017 UNLISTED, UNLISTED W 707. 15 ULCER OF OTHER PART OF FOOT 11/10/2017 UNLISTED, UNLISTED W 730. 07 ACUTE OSTEOMYELITIS INVOLVING ANKLE AND FOOT 11/10/2017 UNLISTED, UNLISTED W E11. 621 TYPE 2 DIABETES MELLITUS WITH FOOT ULCER 11/10/2017 UNLISTED, UNLISTED W F20. 9 SCHIZOPHRENIA, UNSPECIFIED 11/10/2017 UNLISTED, UNLISTED W J44. 9 CHRONIC OBSTRUCTIVE PULMONARY DISEASE, UNSPECIFIED 11/10/2017 UNLISTED, UNLISTED A L03. 031 CELLULITIS OF RIGHT TOE 11/10/2017 UNLISTED, UNLISTED W L97. 512 NON-PRS CHRONIC ULCER OTH PRT RIGHT FOOT W FAT LAYER EXPOSED 11/10/2017 UNLISTED, UNLISTED W L97. 514 NON-PRS CHRONIC ULCER OTH PRT RIGHT FOOT W NECROSIS OF BONE 11/10/2017 UNLISTED, UNLISTED W M86. 271 SUBACUTE OSTEOMYELITIS, RIGHT ANKLE AND FOOT 11/12/2017 ANU HERNANDEZ, CLAY Zapata Ot E11.42 TYPE 2 DIABETES MELLITUS WITH DIABETIC P 11/12/2017 CLAY BRENNAN MD, Ot E11.621 TYPE 2 DIABETES MELLITUS WITH FOOT ULCER 11/12/2017 CLAY BRENNAN MD, Ot F20 .9 SCHIZOPHRENIA, UNSPECIFIED 11/12/2017 ANU HERNANDEZ, CLAY Zapata Ot L97.512 NON-PRS CHRONIC ULCER OTH PRT RIGHT FOOT 11/12/2017 CLAY BRENNAN MD, Ot L97.514 NON-PRS CHRONIC ULCER OTH PRT RIGHT FOOT 11/12/2017 ANU HERNANDEZ, CLAY Zapata Ot M86.271 SUBACUTE OSTEOMYELITIS, RIGHT ANKLE AND 11/13/2017 CLAY BRENNAN MD, Ot E11.42 TYPE 2 DIABETES MELLITUS WITH DIABETIC P 11/13/2017 CLAY BRENNAN MD, Ot E11.621 TYPE 2 [...] MELLITUS WITH FOOT ULCER 11/24/2017 CLAY BRENNAN MD Ot F20 .9 SCHIZOPHRENIA, UNSPECIFIED 11/24/2017 CLAY BRENNAN MD Ot L97.512 NON-PRS CHRONIC ULCER OTH PRT RIGHT FOOT 11/24/2017 CLAY BRENNAN MD Ot M86.271 SUBACUTE OSTEOMYELITIS, RIGHT ANKLE AND 12/01/2017 CLAY BRENNAN MD Ot E11.42 TYPE 2 DIABETES MELLITUS WITH DIABETIC P 12/01/2017 CLAY BRENNAN MD Ot E11.621 TYPE 2 DIABETES MELLITUS WITH FOOT ULCER 12/01/2017 CLAY BRENNAN MD Ot F20 .9 SCHIZOPHRENIA, UNSPECIFIED 12/01/2017 CLAY [...] OTH PRT RIGHT FOOT 12/08/2017 CLAY BRENNAN MD, Ot M86.271 SUBACUTE OSTEOMYELITIS, RIGHT ANKLE AND 01/10/2018SeptemberDamonBertha beavers W 401.0 MALIGNANT ESSENTIAL HYPERTENSION 01/10/2018SeptemberDamonBertha beavers W 535.60 DUODENITIS, WITHOUT MENTION OF HEMORRHAGE 01/10/2018SeptemberDamonBertha beavers A 577.0 ACUTE PANCREATITIS 01/10/2018SeptemberDamonBertha beavers W 789.07 ABDOMINAL PAIN, GENERALIZED 01/10/2018SeptemberDamonBertha beavers W I10 ESSENTIAL (PRIMARY) HYPERTENSION 01/10/2018SeptemberDamonBertha beavers W K29.80 DUODENITIS WITHOUT BLEEDING 01/10/2018SeptemberDamonBertha beavers A K85.90 ACUTE PANCREATITIS WITHOUT NECROSIS OR INFECTION, UNSP 01/10/2018SeptemberDamonBertha beavers W R10.84 GENERALIZED ABDOMINAL PAIN 04/16/2018 Bertha Damon A 944.24 BLISTERS WITH EPIDERMAL LOSS DUE TO BURN [SECOND DEGREE] OF TWO OR MORE DIGITS OF HAND INCLUDING THUMB 04/16/2018SeptemberDamonBertha beavers W 948.00 BURN [ANY DEGREE] INVOLVING LESS THAN 10 PERCENT OF BODY SURFACE WITH THIRD DEGREE BURN OF LESS THAN 10 PERCENT OR UNSPECIFIED AMOUNT 04/16/2018SeptemberDamonBertha beavers A T23.24 1A BURN OF 2ND DEG MUL RIGHT FINGERS (NAIL), INC THUMB, INIT 04/16/2018SeptemberDamonBertha beavers W T31.0 HUBBARD INVOLVING LESS THAN 10% OF BODY SURFACE 09/04/2018 CLAY BRENNAN MD, Ot E11.42 TYPE 2 DIABETES MELLITUS WITH DIABETIC P 09/04/2018 CLAY BRENNAN MD, Ot E11.621 TYPE 2 DIABETES MELLITUS WITH FOOT ULCER 09/04/2018 CLAY BRENNAN MD, Ot F20 .9 SCHIZOPHRENIA, UNSPECIFIED 09/04/2018 CLAY BRENNAN MD, Ot L97.514 NON-PRS [...] DIABETES MELLITUS WITH FOOT ULCER 09/04/2018 CLAY BERNNAN MD Ot F20 .9 SCHIZOPHRENIA, UNSPECIFIED 09/04/2018 [...] SUBACUTE OSTEOMYELITIS, RIGHT ANKLE AND 09/04/2018 EUSEBIOPAULETTE Fong Ot E11.9 TYPE 2 DIABETES MELLITUS WITHOUT COMPLIC 09/04/2018 EUSEBIO PAULETTE VETERINARY SURGEON Ot F20.9 SCHIZOPHRENIA, UNSPECIFIED 09/04/2018 EUSEBIO, PAULETTE VETERINARY SURGEON Ot F31.9 BIPOLAR DISORDER, UNSPECIFIED 09/04/2018 EUSEBIO, PAULETTE VETERINARY SURGEON Ot R07.81 PLEURODYNIA 09/04/2018 EUSEBIO, PAULETTE VETERINARY SURGEON Ot S22.42XA MULTIPLE FRACTURES OF RIBS, LEFT SIDE, I 09/04/2018 EUSEBIO, PAULETTE VETERINARY SURGEON Ot W10.8XXA FALL (ON) (FROM) OTHER STAIRS AND STEPS, 09/04/2018 PAULETTE KAPLAN VETERINARY SURGEON Ot Z88.8 ALLERGY STATUS TO [facility] DRUG/MEDS/BIOL SUB 09/04/2018 EUSEBIO PAULETTE VETERINARY SURGEON Ot 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) 09/04/2018 PAULETTE KAPLAN VETERINARY SURGEON Ot Z91.040 LATEX ALLERGY STATUS 09/06/2018 EUSEBIO PAULETTE VETERINARY SURGEON Ot E11.9 TYPE 2 DIABETES MELLITUS WITHOUT COMPLIC 09/06/2018 EUSEBIO, PAULETTE VETERINARY SURGEON Ot F20.9 SCHIZOPHRENIA, UNSPECIFIED 09/06/2018 EUSEBIO, PAULETTE VETERINARY SURGEON Ot F31.9 BIPOLAR DISORDER, UNSPECIFIED 09/06/2018 EUSEBIO, PAULETTE VETERINARY SURGEON Ot R07.81 PLEURODYNIA 09/06/2018 EUSEBIO, PAULETTE VETERINARY SURGEON Ot S22.42XA MULTIPLE FRACTURES OF RIBS, LEFT SIDE, I 09/06/2018 EUSEBIO, PAULETTE VETERINARY SURGEON Ot W10.8XXA FALL (ON) (FROM) OTHER STAIRS AND STEPS, 09/06/2018 PAULETTE KAPLAN Ot Z88.8 ALLERGY STATUS TO [facility] DRUG/MEDS/BIOL SUB 09/06/2018 PAULETTE KAPLAN Ot 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) 09/06/2018 PAULETTE KAPLAN Ot Z91.040 LATEX ALLERGY STATUS 09/15/2018 CLAY [...] SUBACUTE OSTEOMYELITIS, RIGHT ANKLE AND 09/17/2018 EDWARDS DO ISAK Ot D64.9 ANEMIA, UNSPECIFIED 09/17/2018 EDWARDS DO, ISAK Ot E87.1 HYPO-OSMOLALITY AND HYPONATREMIA 09/17/2018 EDWARDS DO ISAK Ot F17.21 0 NICOTINE DEPENDENCE, CIGARETTES, UNCOMPL 09/17/2018 EDWARDS DO, ISAK Ot F20.9 SCHIZOPHRENIA, UNSPECIFIED 09/17/2018 EDWARDS DO, ISAK Ot F31.9 BIPOLAR DISORDER, UNSPECIFIED 09/17/2018 EDWARDS DO, ISAK Ot I10 ESSENTIAL (PRIMARY) HYPERTENSION 09/17/2018 EDWARDS DO, ISAK Ot I95.9 HYPOTENSION, UNSPECIFIED 09/17/2018 EDWARDS DO, ISAK Ot J96.00 ACUTE RESPIRATORY FAILURE, UNSP W HYPOXI 09/17/2018 EDWARDS DO, ISAK Ot T40.2X 2A POISONING BY OTH OPIOIDS, INTENTIONAL SE 09/17/2018 EDWARDS DO, ISAK Ot T40.7X 2A POISONING BY CANNABIS (DERIVATIVES), CASSIUS 09/17/2018 EDWARDS DO, ISAK Ot T43.01 2A POISONING BY TRICYCLIC ANTIDEPRESSANTS, 09/17/2018 EDWARDS DO, ISAK Ot T43.62 2A POISONING BY AMPHETAMINES, INTENTIONAL S 09/17/2018 EDWARDS DO, ISAK Ot Z89.42 1 ACQUIRED ABSENCE OF OTHER RIGHT TOE(S) 09/18/2018 EDWARDS DO, ISAK Ot D64.9 ANEMIA, UNSPECIFIED 09/18/2018 EDWARDS DO, ISAK Ot E87.1 HYPO-OSMOLALITY AND HYPONATREMIA 09/18/2018 EDWARDS DO, ISAK Ot F17.21 0 NICOTINE DEPENDENCE, CIGARETTES, UNCOMPL 09/18/2018 EDWARDS DO, ISAK Ot F20.9 SCHIZOPHRENIA, UNSPECIFIED 09/18/2018 EDWARDS DO, ISAK Ot F31.9 BIPOLAR DISORDER, UNSPECIFIED 09/18/2018 EDWARDS DO, ISAK Ot I10 ESSENTIAL (PRIMARY) HYPERTENSION 09/18/2018 EDWARDS DO, ISAK Ot I95.9 HYPOTENSION, UNSPECIFIED 09/18/2018 EDWARDS DO, ISAK Ot J96.00 ACUTE RESPIRATORY FAILURE, UNSP W HYPOXI 09/18/2018 EDWARDS DO, ISAK Ot T40.2X 2A POISONING BY OTH OPIOIDS, INTENTIONAL SE 09/18/2018 EDWARDS DO, ISAK Ot T40.7X 2A POISONING BY CANNABIS (DERIVATIVES), CASSIUS 09/18/2018 EDWARDS DO, ISAK Ot T43.01 2A POISONING BY TRICYCLIC ANTIDEPRESSANTS, 09/18/2018 EDWARDS DO, ISAK Ot T43.62 2A POISONING BY AMPHETAMINES, INTENTIONAL S 09/18/2018 EDWARDS DO, ISAK Ot Z89.42 1 ACQUIRED ABSENCE OF OTHER RIGHT TOE(S) 09/18/2018 EDWARDS DO, ISAK Ot D64.9 ANEMIA, UNSPECIFIED 09/18/2018 EDWARDS DO, ISAK Ot E87.1 HYPO-OSMOLALITY AND HYPONATREMIA 09/18/2018 EDWARDS DO, ISAK Ot F17.21 0 NICOTINE DEPENDENCE, CIGARETTES, UNCOMPL 09/18/2018 EDWARDS DO, ISAK Ot F20.9 SCHIZOPHRENIA, UNSPECIFIED 09/18/2018 EDWARDS [...] MELLITUS WITH DIABETIC P 01/06/2019 CLAY BRENNAN MD, Ot E11.621 TYPE 2 DIABETES MELLITUS WITH FOOT ULCER 01/06/2019 CLAY BRENNAN MD, Ot F20 .9 SCHIZOPHRENIA, UNSPECIFIED 01/06/2019 CLAY BRENNAN MD, Ot L97.514 NON-PRS CHRONIC ULCER OTH PRT RIGHT FOOT 01/06/2019 CLAY BRENNAN MD, Ot M86.271 SUBACUTE OSTEOMYELITIS, RIGHT ANKLE AND 01/06/2019 CLAY BRENNAN MD, Ot E11.42 TYPE 2 DIABETES MELLITUS WITH DIABETIC P 01/06/2019 CLAY BRENNAN MD, Ot E11.621 TYPE 2 [...] RIGHT FOOT 01/06/2019 CLAY BRENNAN MD, Ot M86.271 SUBACUTE OSTEOMYELITIS, RIGHT ANKLE AND 01/26/2019 CLAY BRENNAN MD Ot E11.42 TYPE 2 DIABETES MELLITUS WITH DIABETIC P 01/26/2019 CLAY BRENNAN MD, Ot E11.621 TYPE 2 DIABETES MELLITUS WITH FOOT ULCER 01/26/2019 CLAY BRENNAN MD, Ot F20 .9 SCHIZOPHRENIA, UNSPECIFIED 01/26/2019 CLAY [...] MELLITUS WITH FOOT ULCER 01/26/2019 CLAY BRENNAN MD, Ot F20 .9 SCHIZOPHRENIA, UNSPECIFIED 01/26/2019 CLAY [...] 2 DIABETES MELLITUS WITH DIABETIC P 01/28/2019 JERRY JUAREZ ISAK Ot E11.52 TYPE 2 DIABETES W DIABETIC PERIPHERAL AN 01/28/2019 EDWARDSMAGALI JUAREZ ISAK Ot E11.62 1 TYPE 2 DIABETES MELLITUS WITH FOOT ULCER 01/28/2019 EDWARDSMAGALI JUAREZ ISAK Ot F17.21 0 NICOTINE DEPENDENCE, CIGARETTES, UNCOMPL 01/28/2019 EDWARDSMAGALI JUAREZ ISAK Ot F20.9 SCHIZOPHRENIA, UNSPECIFIED 01/28/2019 EDWARDSMAGALI JUAREZ ISAK Ot F31.9 BIPOLAR DISORDER, UNSPECIFIED 01/28/2019 EDWARDS DO, ISAK Ot I10 ESSENTIAL (PRIMARY) HYPERTENSION 01/28/2019 EDWARDSMAGALI JUAREZ ISAK Ot I96 GANGRENE, NOT ELSEWHERE CLASSIFIED 01/28/2019 JERRY JUAREZ ISAK Ot L03.03 1 CELLULITIS OF RIGHT TOE 01/28/2019 JERRY JUAREZ ISAK Ot L03.11 5 CELLULITIS OF RIGHT LOWER LIMB 01/28/2019 JERRY JUAREZ ISAK Ot L97.51 4 NON-PRS CHRONIC ULCER OTH PRT RIGHT FOOT 01/28/2019 EDWARDSMAGALI JUAREZ ISAK Ot R46.89 OTHER SYMPTOMS AND SIGNS INVOLVING APPEA 01/28/2019 EDWARDSMAGALI JUAREZ ISAK Ot Z89.42 1 ACQUIRED ABSENCE OF OTHER RIGHT TOE(S) 01/28/2019 JERRY JUAREZ ISAK Ot Z91.19 PATIENT'S NONCOMPLIANCE W OTH MEDICAL TR 01/28/2019 EDWARDSMAGALI JUAREZ ISAK Ot Z91.5 PERSONAL HISTORY OF SELF-HARM 02/15/2019 KEVIN ROBB MD Ot E11.621 TYPE 2 DIABETES MELLITUS WITH FOOT ULCER 02/15/2019 KEVIN ROBB MD Ot F20. 9 SCHIZOPHRENIA, UNSPECIFIED 02/15/2019 KEVIN [...] Z91. 5 PERSONAL HISTORY OF SELF-HARM 03/30/2019 ISAK EDWARDS DO Ot B18.2 CHRONIC VIRAL HEPATITIS C 03/30/2019 ISAK EDWARDS DO Ot E11.9 TYPE 2 DIABETES MELLITUS WITHOUT COMPLIC 03/30/2019 ISAK EDWARDS DO Ot F14.11 COCAINE ABUSE, IN REMISSION 03/30/2019 [...] PANCREATITIS WITHOUT NECROSIS OR I 03/30/2019 EDWARDS DO, ISAK Ot N39.0 URINARY TRACT INFECTION, SITE NOT SPECIF 03/30/2019 EDWARDS DO, ISAK Ot Z89.41 1 ACQUIRED ABSENCE OF RIGHT GREAT TOE 03/30/2019 EDWARDS DO, ISAK Ot Z89.42 1 ACQUIRED [...] MD, Ot F20 .9 SCHIZOPHRENIA, UNSPECIFIED 04/29/2019 ANU MD, CLAY G Ot L97.512 NON-PRS CHRONIC ULCER OTH PRT [...] RIGHT FOOT 04/29/2019 CLAY BRENNAN MD, Ot L97.514 NON-PRS CHRONIC ULCER OTH PRT RIGHT FOOT 04/29/2019 CLAY BRENNAN MD Ot M86.271 SUBACUTE OSTEOMYELITIS, RIGHT ANKLE AND 04/29/2019 CLAY BRENNAN MD Ot E11.42 TYPE 2 DIABETES MELLITUS WITH DIABETIC P 04/29/2019 CLAY RBENNAN MD, Ot E11.621 TYPE 2 DIABETES MELLITUS [...] W DIABETIC PERIPHERAL AN 05/12/2019 CLAY BRENNAN MD Ot E11.621 TYPE [...] MELLITUS WITH FOOT ULCER 05/13/2019 CLAY BRENNAN MD Ot F20 .9 SCHIZOPHRENIA, UNSPECIFIED 05/13/2019 CLAY [...] Ot I96 GANGRENE, NOT ELSEWHERE CLASSIFIED 05/15/2019 ANU HERNANDEZ, CLAY Zapata Ot L97.512 NON-PRS CHRONIC ULCER OTH PRT RIGHT FOOT 05/18/2019 KHADIJAH HERNANDEZ, YONATAN Masterson Ot E11.42 TYPE 2 DIABETES MELLITUS WITH DIABETIC P 05/18/2019 KHADIJAH HERNANDEZ, YONATAN Masterson Ot E11.621 TYPE 2 DIABETES MELLITUS WITH FOOT ULCER 05/18/2019 KHADIJAH HERNANDEZ, YONATAN Masterson Ot F20.9 SCHIZOPHRENIA, UNSPECIFIED 05/18/2019 KHADIJAH HERNANDEZ, YONATAN Masterson Ot L97.512 NON-PRS CHRONIC ULCER OTH PRT RIGHT FOOT 05/18/2019 YONATAN LUCIO MD Ot E11.42 TYPE 2 DIABETES MELLITUS WITH DIABETIC P 05/18/2019 KHADIJAH HERNANDEZ, YONATAN Masterson Ot E11.621 TYPE 2 DIABETES MELLITUS WITH FOOT ULCER 05/18/2019 YONATAN LUCIO MD Ot F20.9 SCHIZOPHRENIA, UNSPECIFIED 05/18/2019 KHADIJAH HERNANDEZ, YONATAN Masterson Ot L97.512 NON-PRS [...] OTH PRT RIGHT FOOT 06/07/2019 ROQUE BAKER MD Ot E11.42 TYPE 2 DIABETES MELLITUS WITH DIABETIC P 06/07/2019 ROQUE BAKER MD Ot E11.621 TYPE 2 DIABETES MELLITUS WITH FOOT ULCER 06/07/2019 ROQUE BAKER MD Ot F20.9 SCHIZOPHRENIA, UNSPECIFIED 06/07/2019 ROQUE BAKER MD Ot I10 ESSENTIAL (PRIMARY) HYPERTENSION 06/07/2019 ROQUE BAKER MD Ot L97.512 NON- PRS CHRONIC ULCER OTH PRT RIGHT FOOT 06/07/2019 LO MD, KIRTIE Ot E11.42 TYPE 2 DIABETES MELLITUS WITH DIABETIC P 06/07/2019 SAMUEL HERNANDEZ, KIRTIE Ot E11.621 TYPE 2 DIABETES MELLITUS WITH FOOT ULCER 06/07/2019 ROQUE BAKER MD Ot F20.9 SCHIZOPHRENIA, UNSPECIFIED 06/07/2019 ROQUE BAKER MD Ot I10 ESSENTIAL (PRIMARY) HYPERTENSION 06/07/2019 ROQUE BAKER MD Ot L97.512 NON- PRS [...] LUCIO MD Ot F20.9 SCHIZOPHRENIA, UNSPECIFIED 06/28/2019 YONATAN LUCIO MD Ot I 96 GANGRENE, NOT ELSEWHERE CLASSIFIED 06/28/2019 YONATAN LUCIO MD Ot L97.512 NON-PRS CHRONIC ULCER OTH PRT RIGHT FOOT 06/28/2019 YONATAN LUCIO MD Ot E11.42 TYPE 2 DIABETES MELLITUS WITH DIABETIC P 06/28/2019 YONATAN LUCIO MD Ot E11.621 TYPE 2 DIABETES MELLITUS WITH FOOT ULCER 06/28/2019 YONATAN LUCIO MD Ot F20.9 SCHIZOPHRENIA, UNSPECIFIED 06/28/2019 YONATAN LUCIO MD Ot I 10 ESSENTIAL (PRIMARY) HYPERTENSION 06/28/2019 YONATAN LUCIO MD A Ot L97.512 NON-PRS CHRONIC ULCER OTH PRT RIGHT FOOT 07/05/2019 ROQUE BAKER MD Ot E11.42 TYPE 2 DIABETES MELLITUS WITH DIABETIC P 07/05/2019 ROQEU BAKER MD, Ot E11.621 TYPE 2 DIABETES MELLITUS WITH FOOT ULCER 07/05/2019 ROQUE BAKER MD Ot F20.9 SCHIZOPHRENIA, UNSPECIFIED 07/05/2019 ROQUE BAKER MD Ot I10 ESSENTIAL (PRIMARY) HYPERTENSION 07/05/2019 ROQUE BAKER MD, Ot L97.512 NON- PRS CHRONIC ULCER OTH PRT RIGHT FOOT 07/15/2019 CLAY BRENNAN MD Ot E11.42 TYPE 2 DIABETES MELLITUS WITH DIABETIC P 07/15/2019 CLAY BRENNAN MD Ot E11.52 TYPE 2 DIABETES W DIABETIC PERIPHERAL AN 07/15/2019 CLAY BRENNAN MD, Ot E11.621 TYPE 2 DIABETES MELLITUS WITH FOOT ULCER 07/15/2019 CLYA BRENNAN MD, Ot F20 .9 SCHIZOPHRENIA, UNSPECIFIED 07/15/2019 ANU HERNANDEZ, CLAY Zapata Ot I10 ESSENTIAL (PRIMARY) HYPERTENSION 07/15/2019 CLAY BRENNAN MD Ot 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 07/15/2019 CLAY BRENNAN [...] OTH PRT RIGHT FOOT 07/18/2019 CLAY BRENNAN MD, Ot M86.271 SUBACUTE OSTEOMYELITIS, [...] Ot I96 GANGRENE, NOT ELSEWHERE CLASSIFIED 07/18/2019 CLAY BRENNAN MD Ot L97.512 NON-PRS [...] SCHIZOPHRENIA, UNSPECIFIED 07/18/2019 YONATAN LUCIO MD Ot L97.512 NON-PRS CHRONIC ULCER OTH PRT RIGHT FOOT 07/18/2019 YONATAN LUCIO MD Ot E11.42 TYPE 2 DIABETES MELLITUS WITH DIABETIC P 07/18/2019 KHADIJAH HERNANDEZ, YONATAN Masterson Ot E11.52 TYPE 2 DIABETES W DIABETIC PERIPHERAL AN 07/18/2019 YONATAN LUCIO MD Ot E11.621 TYPE 2 DIABETES MELLITUS WITH FOOT ULCER 07/18/2019 KHADIJAH HERNANDEZ, YONATAN Masterson Ot F20.9 SCHIZOPHRENIA, UNSPECIFIED 07/18/2019 KHADIJAH HERNANDEZ, YONATAN Masterson Ot I 96 GANGRENE, NOT ELSEWHERE CLASSIFIED [...] CHRONIC ULCER OTH PRT RIGHT FOOT 07/18/2019 CALY BRENNAN MD Ot E11.42 TYPE 2 DIABETES MELLITUS WITH DIABETIC P 07/18/2019 CLAY BRENNAN MD Ot E11.52 TYPE 2 DIABETES W DIABETIC PERIPHERAL AN 07/18/2019 ANU HERNANDEZ, CLAY Zapata Ot E11.621 TYPE 2 DIABETES MELLITUS WITH FOOT ULCER 07/18/2019 CLAY BRENNAN MD Ot F20 .9 SCHIZOPHRENIA, UNSPECIFIED 07/18/2019 CLAY BRENNAN MD Ot I10 ESSENTIAL (PRIMARY) HYPERTENSION 07/18/2019 CLAY BRENNAN MD Ot 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 07/18/2019 ANU HERNANDEZ, CLAY Zapata Ot L97.512 NON-PRS CHRONIC ULCER OTH PRT RIGHT FOOT 07/20/2019 ANSELMO LAN MD, Ot Z01.81 8 ENCOUNTER FOR OTHER PREPROCEDURAL [...] 2 DIABETES MELLITUS WITH DIABETIC P 07/20/2019 YONATAN LUCIO MD Ot E11.621 TYPE 2 [...] I10 ESSENTIAL (PRIMARY) HYPERTENSION 07/21/2019 ANSELMO LAN MD Ot J45.90 9 UNSPECIFIED ASTHMA, UNCOMPLICATED 07/21/2019 ANSELMO LAN MD Ot K21.9 GASTRO-ESOPHAGEAL REFLUX DISEASE WITHOUT 07/21/2019 ANSELMO LAN MD Ot M86.9 OSTEOMYELITIS, UNSPECIFIED 07/21/2019 ANSELMO LAN MD Ot Z11.2 ENCOUNTER FOR SCREENING FOR OTHER BACTER 07/21/2019 ANSELMO LAN MD Ot Z79.89 9 OTHER [employer] (CURRENT) DRUG THERAPY 07/21/2019 ANSELMO LAN MD Ot Z91.04 0 LATEX ALLERGY STATUS 07/21/2019 ANSELMO LAN MD Ot Z91.19 PATIENT'S NONCOMPLIANCE W OT MEDICAL TR 07/26/2019 ANSELMO LAN MD Ot B19.20 UNSPECIFIED VIRAL HEPATITIS C WITHOUT HE 07/26/2019 ANSELMO LAN MD Ot E11.51 TYPE 2 DIABETES W DIABETIC PERIPHERAL AN 07/26/2019 ANSELMO LAN MD, Ot E11.69 TYPE 2 DIABETES MELLITUS WITH [...] ANSELMO LAN MD Ot Z79.89 9 OTHER DETENTION (CURRENT) DRUG THERAPY 07/26/2019 ANSELMO LAN MD Ot Z91.04 0 LATEX ALLERGY STATUS 07/26/2019 ANSEMLO LAN MD Ot Z91.19 PATIENT'S NONCOMPLIANCE W [...] I10 ESSENTIAL (PRIMARY) HYPERTENSION 07/31/2019 ANSELMO LAN MD, Ot J45.90 9 UNSPECIFIED ASTHMA, UNCOMPLICATED 07/31/2019 ANSELMO LAN MD Ot K21.9 GASTRO-ESOPHAGEAL REFLUX DISEASE WITHOUT 07/31/2019 ANSELMO LAN MD Ot M86.9 OSTEOMYELITIS, UNSPECIFIED 07/31/2019 ANSELMO LAN MD Ot Z11.2 ENCOUNTER FOR SCREENING FOR OTHER BACTER 07/31/2019 ANSELMO LAN MD Ot Z79.89 9 OTHER DETENTION (CURRENT) DRUG THERAPY 07/31/2019 ANSELMO LAN MD, Ot Z91.04 0 LATEX ALLERGY STATUS 07/31/2019 ANSELMO ALN MD Ot Z91.19 PATIENT'S NONCOMPLIANCE W [facility] MEDICAL TR 08/02/2019 ANSELMO LAN MD, Ot B19.20 UNSPECIFIED VIRAL HEPATITIS C WITHOUT HE 08/02/2019 ANSELMO LAN MD Ot E11.51 TYPE 2 DIABETES W DIABETIC PERIPHERAL AN 08/02/2019 ANSELMO LAN MD Ot E11.69 TYPE 2 DIABETES MELLITUS WITH OTHER SPEC 08/02/2019 ANSELMO LAN MD, Ot F17.21 0 NICOTINE DEPENDENCE, CIGARETTES, UNCOMPL 08/02/2019 ANSELMO LAN MD Ot F20.9 SCHIZOPHRENIA, UNSPECIFIED 08/02/2019 ANSELMO LAN MD Ot F31.9 BIPOLAR DISORDER, UNSPECIFIED 08/02/2019 ANSELMO LAN MD Ot I10 ESSENTIAL (PRIMARY) HYPERTENSION 08/02/2019 ANSELMO LAN MD Ot J45.90 9 UNSPECIFIED ASTHMA, UNCOMPLICATED 08/02/2019 ANSELMO LAN MD Ot K21.9 GASTRO-ESOPHAGEAL REFLUX DISEASE WITHOUT 08/02/2019 ANSELMO LAN MD Ot M86.9 OSTEOMYELITIS, UNSPECIFIED 08/02/2019 ANSELMO LAN MD Ot Z11.2 ENCOUNTER FOR SCREENING FOR OTHER BACTER 08/02/2019 ANSELMO LAN MD, Ot Z79.89 9 OTHER [employer] (CURRENT) DRUG THERAPY 08/02/2019 ANSELMO LAN MD, Ot Z91.04 0 LATEX ALLERGY STATUS 08/02/2019 ANSELMO LAN MD, Ot Z91.19 PATIENT'S NONCOMPLIANCE W OT MEDICAL TR 08/03/2019 CLAY BRENNAN MD Ot E11.42 TYPE 2 DIABETES MELLITUS WITH DIABETIC P 08/03/2019 CLAY BRENNAN MD Ot E11.621 TYPE 2 DIABETES MELLITUS WITH FOOT ULCER 08/03/2019 CLAY BRENNAN MD, Ot F20 .9 SCHIZOPHRENIA, UNSPECIFIED 08/03/2019 CLAY BRENNAN MD Ot I10 ESSENTIAL (PRIMARY) HYPERTENSION 08/03/2019 CLAY BRENNAN MD Ot 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 08/03/2019 [...] 08/04/2019 CLAY BRENNAN MD Ot 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 08/04/2019 CLAY BRENNAN MD Ot L97.512 NON-PRS CHRONIC ULCER OTH PRT RIGHT FOOT 08/09/2019 CLAY BRENNAN MD Ot E11.42 TYPE 2 DIABETES MELLITUS WITH DIABETIC P 08/09/2019 CLAY BRENNAN MD Ot E11.52 TYPE 2 DIABETES W DIABETIC PERIPHERAL AN 08/09/2019 CLAY BRENNAN MD Ot E11.621 TYPE 2 DIABETES MELLITUS WITH FOOT ULCER 08/09/2019 CLAY BRENNAN MD Ot F20 .9 SCHIZOPHRENIA, UNSPECIFIED 08/09/2019 CLAY BRENNAN MD Ot I10 ESSENTIAL (PRIMARY) HYPERTENSION 08/09/2019 ANU HERNANDEZ, CLAY Zapata Ot 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 08/09/2019 ANU HERNANDEZ, CLAY Zapata Ot L97.512 NON-PRS CHRONIC ULCER OTH PRT RIGHT FOOT 08/09/2019 CLAY BRENNAN MD Ot L97.521 NON-PRS CHRONIC ULCER OTH PRT L FOOT KOHLI 08/16/2019 CLAY BRENNAN MD Ot E11.42 TYPE 2 DIABETES MELLITUS WITH DIABETIC P 08/16/2019 CLAY BRENNAN MD Ot E11.621 TYPE 2 DIABETES MELLITUS WITH FOOT ULCER 08/16/2019 CLAY BRENNAN MD Ot F20 .9 SCHIZOPHRENIA, UNSPECIFIED 08/16/2019 CLAY BRENNAN MD Ot I10 ESSENTIAL (PRIMARY) HYPERTENSION 08/16/2019 CLAY BRENNAN MD Ot 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 08/16/2019 ANU HERNANDEZ, CLAY Zapata Ot L97.514 NON-PRS CHRONIC ULCER OTH PRT RIGHT FOOT 08/16/2019 CLAY BRENNAN MD Ot L97.522 NON-PRS CHRONIC ULCER OTH PRT LEFT FOOT 08/23/2019 CLAY BRENNAN MD Ot E11.42 TYPE 2 DIABETES MELLITUS WITH DIABETIC P 08/23/2019 CLAY BRENNAN MD Ot E11.621 TYPE 2 DIABETES MELLITUS WITH FOOT ULCER 08/23/2019 CLAY BRENNAN MD Ot F20 .9 SCHIZOPHRENIA, UNSPECIFIED 08/23/2019 CLAY BRENNAN MD Ot I10 ESSENTIAL (PRIMARY) HYPERTENSION 08/23/2019 CLAY BRENNAN MD Ot L97.512 NON-PRS CHRONIC [...] MD Ot F20 .9 SCHIZOPHRENIA, UNSPECIFIED 08/24/2019 ANU HERNANDEZ, CLAY Zapata Ot I10 ESSENTIAL (PRIMARY) HYPERTENSION 08/24/2019 CLAY BRENNAN MD Ot 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 08/24/2019 [...] 08/26/2019 CLAY BRENNAN MD Ot 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 08/26/2019 ANU HERNANDEZ, CLAY Zapata Ot L97.514 NON-PRS [...] OTH PRT RIGHT FOOT 08/30/2019 SIENA PAEZ MD, Ot E11.6 22 TYPE 2 DIABETES MELLITUS WITH OTHER SKIN 08/30/2019 SIENA PAEZ MD, Ot F17.2 98 NICOTINE DEPENDENCE, OTH TOBACCO PRODUCT 08/30/2019 SIENA PAEZ MD Ot I10 ESSENTIAL (PRIMARY) HYPERTENSION 08/30/2019 SIENA PAEZ MD Ot 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 08/30/2019 SIENA PAEZ MD Ot L89.8 90 PRESSURE ULCER OF OTHER SITE, UNSTAGEABL 08/30/2019 SIENA PAEZ MD Ot L89.8 92 PRESSURE ULCER OF OTHER SITE, STAGE 2 08/30/2019 CLAY BRENNAN MD, Ot B18 .2 [...] 2 DIABETES MELLITUS WITH DIABETIC P 08/30/2019 CLAY BRENNAN MD Ot E11.621 TYPE 2 DIABETES MELLITUS WITH FOOT ULCER 08/30/2019 CLAY BRENNAN MD Ot F20 .9 SCHIZOPHRENIA, UNSPECIFIED 08/30/2019 CLAY BRENNAN MD Ot I10 ESSENTIAL (PRIMARY) HYPERTENSION 08/30/2019 ANU HERNANDEZ, CLAY Zapata Ot L97.512 NON-PRS CHRONIC ULCER OTH PRT RIGHT FOOT 08/30/2019 CLAY BRENNAN MD Ot L97.522 NON-PRS CHRONIC ULCER OTH PRT LEFT FOOT 08/30/2019 ANU HERNANDEZ, CLAY Zapata Ot M86.471 CHRONIC OSTEOMYELITIS W DRAINING SINUS, 09/01/2019 ANU HERNANDEZ, CLAY Zapata Ot B18 .2 CHRONIC VIRAL HEPATITIS C 09/01/2019 ANU HERNANDEZ, CLAY Zapata Ot E11.42 TYPE 2 DIABETES MELLITUS WITH DIABETIC P 09/01/2019 CLAY BRENNAN MD Ot E11.621 TYPE 2 DIABETES MELLITUS WITH FOOT ULCER 09/01/2019 CLAY BRENNAN MD Ot F20 .9 SCHIZOPHRENIA, UNSPECIFIED 09/01/2019 ANU HERNANDEZ, CLAY Zapata Ot I10 ESSENTIAL (PRIMARY) HYPERTENSION 09/01/2019 CLAY BRENNAN MD Ot L97.514 NON-PRS CHRONIC ULCER OTH PRT RIGHT FOOT 09/01/2019 CLAY BRENNAN MD Ot L97.522 NON-PRS CHRONIC ULCER OTH PRT LEFT FOOT 09/01/2019 CLAY BRENNAN MD Ot M86.471 CHRONIC OSTEOMYELITIS W DRAINING SINUS, 09/01/2019 CLAY BRENNAN MD Ot B18 .2 CHRONIC VIRAL HEPATITIS C 09/01/2019 CLAY BRENNAN MD Ot E11.42 TYPE 2 DIABETES MELLITUS WITH DIABETIC P 09/01/2019 ANU HERNANDEZ, CLAY Zapata Ot E11.621 TYPE 2 DIABETES MELLITUS WITH FOOT ULCER 09/01/2019 CLAY BRENNAN MD Ot F20 .9 SCHIZOPHRENIA, UNSPECIFIED 09/01/2019 ANU HERNANDEZ, CLAY Zapata Ot I10 ESSENTIAL (PRIMARY) HYPERTENSION 09/01/2019 CLAY BRENNAN MD Ot L97.514 NON-PRS CHRONIC ULCER OTH PRT RIGHT FOOT 09/01/2019 CLAY BRENNAN MD Ot L97.522 NON-PRS CHRONIC ULCER OTH PRT LEFT FOOT 09/01/2019 CLAY BRENNAN MD Ot M86.471 CHRONIC OSTEOMYELITIS W DRAINING SINUS, 09/04/2019 CLAY BRENNAN MD Ot E11.42 TYPE 2 DIABETES MELLITUS WITH DIABETIC P 09/04/2019 CLAY BRENNAN MD Ot E11.621 TYPE 2 DIABETES MELLITUS WITH FOOT ULCER 09/04/2019 ANU HERNANDEZ, CLAY Zapata Ot F20 .9 SCHIZOPHRENIA, UNSPECIFIED 09/04/2019 ANU HERNANDEZ, CLAY Zapata Ot I10 ESSENTIAL (PRIMARY) HYPERTENSION 09/04/2019 ANU HERNANDEZ, CLAY Zapata Ot L97.512 NON-PRS CHRONIC ULCER OTH PRT RIGHT FOOT 09/04/2019 ANU HERNANDEZ, CLAY Zapata Ot L97.522 NON-PRS CHRONIC ULCER OTH PRT LEFT FOOT 09/04/2019 ANU HERNANDEZ, CLAY Zapata Ot M86.471 CHRONIC OSTEOMYELITIS W DRAINING SINUS, 09/06/2019 CLAY BRENNAN MD Ot E11.42 TYPE 2 DIABETES MELLITUS WITH DIABETIC P 09/06/2019 ANU HERNANDEZ, CLAY Zapata Ot E11.621 TYPE 2 DIABETES MELLITUS WITH FOOT ULCER 09/06/2019 ANU HERNANDEZ, CLAY Zapata Ot F20 .9 SCHIZOPHRENIA, UNSPECIFIED 09/06/2019 ANU HERNANDEZ, CLAY Zapata Ot I10 ESSENTIAL (PRIMARY) HYPERTENSION 09/06/2019 ANU HERNANDEZ, CLAY Zapata Ot L97.512 NON-PRS CHRONIC ULCER OTH PRT RIGHT FOOT 09/06/2019 ANU HERNANDEZ, CLAY Zapata Ot L97.522 NON-PRS CHRONIC ULCER OTH PRT LEFT FOOT 09/06/2019 CLAY BRENNAN MD Ot M86.471 CHRONIC OSTEOMYELITIS W DRAINING SINUS, 09/08/2019 CLAY BRENNAN MD Ot E11.42 TYPE 2 DIABETES MELLITUS WITH DIABETIC P 09/08/2019 ANU HERNANDEZ, CLAY Zapata Ot E11.621 TYPE 2 DIABETES MELLITUS WITH FOOT ULCER 09/08/2019 CLAY BRENNAN MD Ot F20 .9 SCHIZOPHRENIA, UNSPECIFIED 09/08/2019 ANU HERNANDEZ, CLAY Zapata Ot I10 ESSENTIAL (PRIMARY) HYPERTENSION 09/08/2019 ANU HERNANDEZ, CLAY Zapata Ot 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 09/08/2019 CLAY BRENNAN MD Ot L97.514 NON-PRS CHRONIC ULCER OTH PRT RIGHT FOOT 09/08/2019 CLAY BRENNAN MD Ot L97.522 NON-PRS CHRONIC ULCER OTH PRT LEFT FOOT 09/09/2019 IYER DO, BISMARK L Ot E11.6 21 TYPE 2 DIABETES MELLITUS WITH FOOT ULCER 09/09/2019 IYER DO, BISMARK L Ot F20.9 SCHIZOPHRENIA, UNSPECIFIED 09/09/2019 IYER DO, BISMARK L Ot F31.9 BIPOLAR DISORDER, UNSPECIFIED 09/09/2019 IYER DO, BISMARK L Ot I10 ESSENTIAL (PRIMARY) HYPERTENSION 09/09/2019 IYER DO, BISMARK L Ot K86.0 ALCOHOL-INDUCED CHRONIC PANCREATITIS 09/09/2019 IYER DO, BISMARK L Ot L97.5 09 NON-PRESSURE CHRONIC ULCER OTH PRT UNSP 09/09/2019 IYER DO, BISMARK L Ot R10.3 2 LEFT LOWER QUADRANT PAIN 09/09/2019 IYER DO, BISMARK L Ot Z77.2 2 CNTCT W AND EXPSR TO ENVIRON TOBACCO SMO 09/09/2019 IYER DO, BISMARK L Ot Z88.8 ALLERGY STATUS TO OTH DRUG/MEDS/BIOL SUB 09/09/2019 IYER DO, BISMARK L Ot Z89.4 21 ACQUIRED ABSENCE OF OTHER RIGHT TOE(S) 09/09/2019 IYER DO, BISMARK L Ot Z91.0 40 LATEX ALLERGY STATUS 09/13/2019 CLAY BRENNAN MD Ot B18 .2 CHRONIC VIRAL HEPATITIS C 09/13/2019 CLAY BRENNAN MD, Ot E11.621 TYPE 2 DIABETES MELLITUS WITH FOOT ULCER 09/13/2019 CLAY BRENNAN MD, Ot L97.514 NON-PRS CHRONIC ULCER OTH PRT RIGHT FOOT 09/13/2019 CLYA BRENNAN MD Ot E11.42 TYPE 2 DIABETES MELLITUS WITH DIABETIC P 09/13/2019 CLAY BRENNAN MD, Ot E11.621 TYPE 2 DIABETES MELLITUS WITH FOOT ULCER 09/13/2019 CLAY BRENNAN MD, Ot F20 .9 SCHIZOPHRENIA, UNSPECIFIED 09/13/2019 CLAY BRENNAN MD, Ot L97.512 NON-PRS CHRONIC ULCER OTH PRT RIGHT FOOT 09/13/2019 CLAY BRENNAN MD Ot M86.471 CHRONIC OSTEOMYELITIS W DRAINING SINUS, 09/13/2019 CLAY BRENNAN MD, Ot 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) 09/18/2019 CLAY BRENNAN MD Ot E11.42 TYPE 2 DIABETES MELLITUS WITH DIABETIC P 09/18/2019 CLAY BRENNAN MD Ot E11.621 TYPE 2 DIABETES MELLITUS WITH FOOT ULCER 09/18/2019 CLAY BRENNAN MD, Ot F20 .9 SCHIZOPHRENIA, UNSPECIFIED 09/18/2019 CLAY BRENNAN MD, Ot L97.512 NON-PRS CHRONIC ULCER OTH PRT RIGHT FOOT 09/18/2019 CLAY BRENNAN MD Ot M86.471 CHRONIC OSTEOMYELITIS W DRAINING SINUS, 09/18/2019 CLAY BRENNAN MD Ot 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) 09/20/2019 CLAY BRENNAN MD Ot E11.42 TYPE 2 DIABETES MELLITUS WITH DIABETIC P 09/20/2019 CLAY BRENNAN MD Ot E11.621 TYPE 2 DIABETES MELLITUS WITH FOOT ULCER 09/20/2019 CLAY BRENNAN MD Ot F20 .9 SCHIZOPHRENIA, UNSPECIFIED 09/20/2019 CLAY BRENNAN MD Ot I10 ESSENTIAL (PRIMARY) HYPERTENSION 09/20/2019 CLAY BRENNAN MD, Ot L97.512 NON-PRS CHRONIC ULCER OTH PRT RIGHT FOOT 09/20/2019 CLAY BRENNAN MD Ot L97.522 NON-PRS CHRONIC ULCER OTH PRT LEFT FOOT 09/20/2019 CLAY BRENNAN MD, Ot M86.471 CHRONIC OSTEOMYELITIS W DRAINING SINUS, 09/21/2019 CLAY BRENNAN MD Ot E11.42 TYPE 2 DIABETES MELLITUS WITH DIABETIC P 09/21/2019 CLAY BRENNAN MD Ot E11.621 TYPE 2 DIABETES MELLITUS WITH FOOT ULCER 09/21/2019 CLAY BRENNAN MD, Ot F20 .9 SCHIZOPHRENIA, UNSPECIFIED 09/21/2019 CLAY BRENNAN MD Ot I10 ESSENTIAL (PRIMARY) HYPERTENSION 09/21/2019 CLAY BRENNAN MD Ot L97.512 NON-PRS CHRONIC ULCER OTH PRT RIGHT FOOT 09/21/2019 CLAY BRENNAN MD Ot M86.471 CHRONIC OSTEOMYELITIS W DRAINING SINUS, 09/21/2019 CLAY BRENNAN MD Ot 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) 09/27/2019 CLAY BRENNAN MD Ot E11.42 TYPE 2 DIABETES MELLITUS WITH DIABETIC P 09/27/2019 CLAY BRENNAN MD Ot E11.621 TYPE 2 DIABETES MELLITUS WITH FOOT ULCER 09/27/2019 CLAY BRENNAN MD Ot F20 .9 SCHIZOPHRENIA, UNSPECIFIED 09/27/2019 CLAY BRENNAN MD Ot I10 ESSENTIAL (PRIMARY) HYPERTENSION 09/27/2019 CLAY BRENNAN MD Ot L97.512 NON-PRS CHRONIC ULCER OTH PRT RIGHT FOOT 09/27/2019 CLAY BRENNAN MD, Ot L97.522 NON-PRS CHRONIC ULCER OTH PRT LEFT FOOT 09/27/2019 CLAY BRENNAN MD, Ot M86.471 CHRONIC OSTEOMYELITIS W DRAINING SINUS, 09/27/2019 CLAY BRENNAN MD, Ot E11.42 TYPE 2 DIABETES MELLITUS WITH DIABETIC P 09/27/2019 CLAY BRENNAN MD, Ot E11.51 TYPE 2 DIABETES W DIABETIC PERIPHERAL AN 09/27/2019 CLAY BRENNAN MD, Ot E11.621 TYPE 2 DIABETES MELLITUS WITH FOOT ULCER 09/27/2019 CLAY BRENNAN MD, Ot F17.200 NICOTINE DEPENDENCE, UNSPECIFIED, UNCOMP 09/27/2019 CLAY BRENNAN MD, Ot F20 .9 SCHIZOPHRENIA, UNSPECIFIED 09/27/2019 CLAY BRENNAN MD, Ot I10 ESSENTIAL (PRIMARY) HYPERTENSION 09/27/2019 CLAY BRENNAN MD, Ot J44 .9 CHRONIC OBSTRUCTIVE PULMONARY DISEASE, U 09/27/2019 CLAY BRENNAN MD, Ot L97.512 NON-PRS CHRONIC ULCER OTH PRT RIGHT FOOT 09/27/2019 CLAY BRENNAN MD Ot Z79.84 DETENTION (CURRENT) USE OF ORAL HYPOGLYC 09/27/2019 CLAY BRENNAN MD Ot 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) 10/12/2019 CLAY BRENNAN MD, Ot E11.42 TYPE 2 DIABETES MELLITUS WITH DIABETIC P 10/12/2019 CLAY BRENNAN MD, Ot E11.621 TYPE 2 DIABETES MELLITUS WITH FOOT ULCER 10/12/2019 CLAY BRENNAN MD Ot F20 .9 SCHIZOPHRENIA, UNSPECIFIED 10/12/2019 CLAY BRENNAN MD, Ot I10 ESSENTIAL (PRIMARY) HYPERTENSION 10/12/2019 CLAY BRENNAN MD, Ot L97.512 NON-PRS CHRONIC ULCER OTH PRT RIGHT FOOT 10/12/2019 CLAY BRENNAN MD, Ot M86.471 CHRONIC OSTEOMYELITIS W DRAINING SINUS, 10/12/2019 CLAY BRENNAN MD Ot 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) 10/24/2019 CLAY BRENNAN MD, Ot E11.42 TYPE 2 DIABETES MELLITUS WITH DIABETIC P 10/24/2019 CLAY BRENNAN MD Ot E11.51 TYPE 2 DIABETES W DIABETIC PERIPHERAL AN 10/24/2019 CLAY BRENNAN MD, Ot E11.621 TYPE 2 DIABETES MELLITUS WITH FOOT ULCER 10/24/2019 CLAY BRENNAN MD, Ot F17.200 NICOTINE DEPENDENCE, UNSPECIFIED, UNCOMP 10/24/2019 CLAY BRENNAN MD, Ot F20 .9 SCHIZOPHRENIA, UNSPECIFIED 10/24/2019 CLAY BRENNAN MD, Ot I10 ESSENTIAL (PRIMARY) HYPERTENSION 10/24/2019 CLAY BRENNAN MD, Ot J44 .9 CHRONIC OBSTRUCTIVE PULMONARY DISEASE, U 10/24/2019 CLAY BRENNAN MD, Ot L97.512 NON-PRS CHRONIC ULCER OTH PRT RIGHT FOOT 10/24/2019 CLAY BRENNAN MD, Ot Z79.84 WO[employer]EN [employer]DER (CURRENT) USE OF ORAL HYPOGLYC 10/24/2019 CLAY BRENNAN MD, Ot 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) Procedures Code Description [place] [address] A1C (IN-HOUSE) 06/08/2012 PODIATRY W EMILIANO PRUITT 06/11/2013 98618 A1C (IN-HOUSE) 08/23/2013 42169 DEBR JASON NAIL 1-5 09/30/2013 88103 AMERITOX 10/04/2013 Physical P hysical Therapy 01/03/2014 56727 CMP 04/18/2014 44482 LIPI D PANEL 04/18/2014 62597 VIT B 12 04/18/2014 97210 [place]TON MIN D I-25 DIHYDROXY 04/18/2014 77126 A1C (IN-HOUSE) 04/18/2014 14272 TSH 04/18/2014 43257 CBC 04/18/2014 98074 A1C (IN-HOUSE) 08/02/2014 [id number] IN SERTION OF INFUSION DEV INTO SUP VENA 09/18/2017 [id number] IN SERTION OF ENDOTRACHEAL AIRWAY INTO TR 09/15/2018 [id number] RE SPIRATORY VENTILATION, LESS THAN 24 CO 09/15/2018 [id number] DE TACHMENT AT RIGHT 1ST TOE, MID, [...] ratio 0.0-0.9 Thyroid Stimulating Hormone - 08/28/17 1 2:52 TSH 1.09 mIU/mL 0.32-5.00 Urine Culture - 08/28/17 12:52 PRELIM CULTURE RESULTS No Growth 24 hours FINAL CULTURE RESULTS 10,000-20,000 Gram Pos itive Coag Neg Staph; Probable Skin Contaminant No Further Workup done MEDIA PLATED Setup at 13:44 on 08/28/2017 CULTURE SOURCE void Other Culture - 08/28/17 18:02 PRELIM CULTURE RESULTS Moderate Gram Positiv e LINDA / ID to Follow MEDIA PLATED Setup at 18:57 on 08/28/2017 Sensi - 08/28/17 18:02 FINAL CULTURE RESULTS Staphylococcus aureus ([place] 1) Ampicillin/Sulbactam <=8/4 Ampicillin 8 Amoxicillin/K Clavulanate [...] 09/14/17 13:42 PRELIM CULTURE RESULTS Blood Culture POSITIV E, Growth Day 1 [id number] Positive Cocci noted on Gram [id number] Testing Pending MEDIA PLATED Setup at 14:35 on 09/14/2017 B lood Culture Media Position C46 CULTURE SOURCE right [id number]\ Sensi - 09/14/17 13:42 FINAL CULTURE RESULTS Staphylococcus warneri (Isol ate 1) Ampicillin/Sulbactam <=8/4 Ampicillin >8 Amoxicillin/K Clavulanate [...] 09/14/17 13:42 PRELIM CULTURE RESULTS Blood Culture POSITIV E, Growth Day 1 [id number] Positive Cocci noted on Gram [id number] Testing Pending MEDIA PLATED Setup at 14:35 on 09/14/2017 B lood Culture Media Position C46 CULTURE SOURCE right [id number]\ Sed Rate - 09/14/17 13:54 Sed Rate 29 mm/hr 0-9 C-Reactive Protein - 09/14/17 13:54 C-Reactive Protein 9.10 mg/dL 0.00-0.50 Blood Culture - 09/14/17 13:54 PRELIM CULTURE RESULTS Blood Culture Negativ e, No Growth Day 1 FINAL CULTURE RESULTS Blood Culture Negative , No Growth Day 5 MEDIA PLATED Setup at 14:34 on 09/14/2017 B lood Culture Media Position C50 CULTURE SOURCE right [...] Negative Urine-Blood Trace-intact Negative Urine-Color Yellow Colorless-[place] ow Urine-Glucose Negative Negative Urine-Ketones Negative Negative Urine-Leukocytes Negative Negative Urine-Nitrite Negative Negative Urine-Other Urine Saved if Culture Need ed (48hrs from time of collection) Urine-pH 7.0 5-8.5 Urine-Protein Negative Negative Urine-RBC Few/HPF Urine-Specific Rush 1.010 1.000-1 .030 Urine-WBC Negative Urobilinogen 2.0 E.U./dL 0.2-1.0 BMP - 09/15/17 05:50 Anion Gap 16 6-14 BUN 14 mg/dL 5-25 Calcium 8.9 mg/dL 8.3-10.4 Chloride 88 mmol/L 95-114 CO2 24 mEq/L 22-33 Creat 0.80 mg/dL 0.50-1.50 eGFR 105 mL/min/1.73m2 >59 Glucose 98 mg/dL 70-110 Osmo 258 280-295 Potassium 4.0 mmol/L 3.5-5.3 Sodium 124 mmol/L 134-148 BMP - 09/16/17 08:21 Anion Gap 16 6-14 BUN 10 mg/dL 5-25 Calcium 8.3 mg/dL 8.3-10.4 Chloride 94 mmol/L 95-114 CO2 21 mEq/L 22-33 Creat 0.77 mg/dL 0.50-1.50 eGFR 110 mL/min/1.73m2 >59 Glucose 108 mg/dL 70-110 Osmo 263 280-295 Potassium 4.3 mmol/L 3.5-5.3 Sodium 127 mmol/L 134-148 Blood Culture - 09/16/17 08:21 PRELIM CULTURE RESULTS Blood Culture Negativ e, No Growth Day 1 FINAL CULTURE RESULTS Blood Culture Negative , No Growth Day 5 MEDIA PLATED Setup at 08:38 on 09/16/2017 B lood Culture Media Position A13 CULTURE SOURCE left foot Other Culture - 09/17/17 15:00 PRELIM CULTURE RESULTS Abundant Beta Hemolyt ic Gram Positive Cocci. LINDA / ID to Follow. MEDIA PLATED Setup at 16:39 on 09/17/2017 Sensi - 09/17/17 15:00 FINAL CULTURE RESULTS Staphylococcus aureus ([place] te 1) Ampicillin/Sulbactam <=8/4 Ampicillin >8 Amoxicillin/K Clavulanate [...] to Follow. FINAL CULTURE RESULTS Scant Staphylococcus a ureus. Presumptive Identification. Please refer to previous culture for Susceptibility. MEDIA PLATED Setup at 16:39 on 09/17/2017 Sed Rate - 09/18/17 07:16 Sed Rate 15 mm/hr 0-9 Complete blood count (CBC) with automate d [...] 16:06 Bacteria identification in wound by culture [id number] NRG FREE TEXT EXTERNAL MORE THAN ONE COLONY TYPE NRG QUANTITY OF GROWTH Scant Growth NR Bacterial susceptibility panel - 8 16:06 Oxacillin [...] 13:25 Bacteria identification in wound by culture [id number] NRG FREE TEXT EXTERNAL SENSITIVITY REPORTED AT 1408, 18 NRG QUANTITY OF GROWTH Scant Growth NR Bacterial susceptibility panel - 8 13:25 Oxacillin [...] test by minimum inhibitory co ncentration 2 [facility] Bacterial susceptibility panel - 8 13:25 Gentamicin susceptibility test by minimum inhibitory c oncentration S NRG Erythromycin susceptibility test by minimum inhibitory concentration >= NRG Vancomycin susceptibility test by minimum inhibitory c oncentration 2 NRG Ampicillin susceptibility test by minimum inhibitory c oncentration <= NRG Linezolid susceptibility test by minimum inhibitory co ncentration 1 [facility] Bacterial susceptibility panel - 8 13:25 Oxacillin [...] 4.0-5.6 MEAN BLOOD GLUCOSE 88 % <=126 Other Culture - 10/05/17 19:59 PRELIM CULTURE RESULTS No Growth 24 hours FINAL CULTURE RESULTS Scant Gram Positive Mi xed Ariana Probable Skin Contaminant No Further Workup done MEDIA PLATED Setup at 20:16 on 10/05/2017 Bacteria identification in isolate by an aerobe culture - 10/21/17 14:01 Bacteria identification in isolate by anaerobe culture NOANA NRG Gram stain microscopy - 10/21/17 14:01 GRAM STAIN RESULT NO BACTERIA OBSERVED NR Bacteria identification in wound by cult ure - 10/21/17 14:01 Bacteria identification in wound by culture [id number] [facility] FREE TEXT EXTERNAL S[place]ITIVITY REPORTED AT 1250, 6 -16-18 NRG QUANTITY OF GROWTH Scant Growth NRG MRSA AGAR Screening test for MRSA is N EGATIVE (Final to follow) [facility] Bacterial susceptibility panel - 8 [...] test by minimum inhibitory co ncentration 2 NR Bacterial susceptibility panel - 8 14:01 Oxacillin [...] test by minimum inhibitory co ncentration 1 [facility] Cardiac Panel - 11/04/17 21:00 CK 33 U/L 26-174 CK-MB 0.5 ng/ml 0.0-9.2 Myoglobin 23.1 ng/ml 1.6-154.9 Troponin <0.020 ng/mL 0.0-0.4 ESR/SED RATE - 12/10/17 11:19 SED RATE BY MODIFIED WESTERGREN 2 mm/h < OR = 15 Rapid Drug Screen + ETOH,Medical - 01/09 21:25 Amphetamine NEGATIVE NEGATIVE Barbiturates NEGATIVE NEGATIVE Benzodiazepines NEGATIVE NEGATIVE Cocaine NEGATIVE NEGATIVE Ethanol, Urine <10.00 mg/dL 20.00-80.00 Marijuana POSITIVE NEGATIVE Methylenedioxymethamphetamine NEGATIVE NEGATIVE Opiates NEGATIVE NEGATIVE Oxycodone NEGATIVE NEGATIVE Phencyclidine NEGATIVE NEGATIVE Propoxyphene NEGATIVE NEGATIVE Tricyclic Antidepressant POSITIVE NEGAT VERONICA Amylase - 01/09/18 23:39 Amylase 20 U/L 20-100 HEP C PCR QUANT (Graph)-APPROVAL REQUIRE D - 05/27/18 17:42 HCV RNA, QUANTITATIVE REAL TIME PCR [id number] IU/mL NOT DETECTED HCV RNA, QUANTITATIVE REAL [...] plasma ethanol measurement (mass/volume) < mg/dL <10 [id number] - 09/15/18 22:15 [id number] 118.2 ug/mL 50.0-100.0 Complete urinalysis with reflex [...] - 09/17/18 03:40 Magnesium 1.8 mg/dL 1.8-2.4 [id number] - 09/17/18 03:40 [id number] 72.4 ug/mL 50.0-100.0 LIPID PANEL - 09/28/18 [...] 7-25 CREATININE 0.71 mg/dL 0.60-1.35 eGFR NON-AFR. MONEGASQUE 113 mL/min/1.73m2 > OR = 60 eGFR [...] 10:18 HCV RNA, QUANTITATIVE REAL TIME PCR [id number] IU/mL NOT DETECTED HCV RNA, QUANTITATIVE REAL [...] 3-95 ALT 76 U/L 9-46 REFERENCE ID [id number] NRG FOOTNOTE SEE NOTE NRG PDM - [...] - 01/26/19 14:20 Bacterial blood culture NG NRG Bacterial blood culture - 01/26/19 14:44 Bacterial blood culture NG NRG Complete blood count (CBC) with automate [...] 7-25 CREATININE 0.71 mg/dL 0.60-1.35 eGFR NON-AFR. MONEGASQUE 113 mL/min/1.73m2 > OR = 60 eGFR [...] culture - 03/28/19 14:05 Bacterial urine culture [id number] NRG COLONY COUNT >100,000/ML NRG FTX;REPORTABLE SUSCEPTIBILITY [...] 11:56 Bacteria identification in wound by culture [id number] NRG FREE TEXT EXTERNAL (CORYNEBACTERIUM SPECIES) NRG QUANTITY OF GROWTH Rare NRG SUSCEPTIBILITY NO SUSCEPTIBILITY PERFORMED NRG MRSA SCREEN SUSCEPTIBILITY REPORTED 08-22-19,1435 NRG RAPID ID PRELIM RAPID ID TEST AT [facility] 08/16 9:30 NRG ID CONFIRMATION PRELIM RAPID ID TEST AT [facility] 08/16 09 :30: NRG Dirithromycin susceptibility test [...] plasma calcium measurement (mass/volume) 9.0 mg/dL 8.5-10.1 Complete blood count (CBC) with automate d white blood cell (WBC) differential - 09/09/19 08:33 Blood leukocytes automated count (number/volume) 12.1 10*3/uL 4.3-11.0 Blood erythrocytes automated count (number/volume) 4.86 10*6/uL 4.35-5.85 Venous blood hemoglobin measurement (mass/volume) 16.3 g/dL 13.3-17.7 Blood hematocrit (volume fraction) 45 % 40-54 Automated erythrocyte mean corpuscular volume 92 [ foz_us] 80-99 Automated erythrocyte mean corpuscular h emoglobin (mass per erythrocyte) 34 pg 25-34 Automated erythrocyte mean corpuscular h emoglobin concentration measurement (mass/volume) 37 g/dL 32-36 Automated erythrocyte distribution width ratio 12. 4 % 10.0- 14.5 Automated blood platelet count (count/volume) 191 10*3/uL 130-400 Automated blood platelet mean volume measurement 10.0 [foz_us] 7.4-10.4 Automated blood neutrophils/100 leukocytes 69 % 42-75 Automated blood lymphocytes/100 leukocytes 16 % 12-44 Blood monocytes/100 leukocytes 14 % 0-12 Automated blood eosinophils/100 leukocytes 0 % 0-10 Automated blood basophils/100 leukocytes 0 % 0-10 Blood neutrophils automated count (number/volume) 8.4 10*3 1.8-7.8 Blood lymphocytes automated count (number/volume) 1.9 10*3 1.0-4.0 Blood monocytes automated count (number/volume) 1. 7 10*3 0.0-1.0 Automated eosinophil count 0.0 10*3/uL 0 .0-0.3 Automated blood basophil count (count/volume) 0.0 10*3/uL 0.0-0.1 PT panel in platelet poor plasma by coag ulation assay - 09/09/19 08:33 Prothrombin time (PT) in platelet poor plasma by coagu lation assay 14.9 s 12.2-14.7 INR in platelet poor plasma or blood by coagulation as say 1.1 0.8-1.4 Serum or plasma ethanol measurement (mas s/volume) - 09/09/19 08:33 Serum or plasma ethanol measurement (mass/volume) < mg/dL <10 Comprehensive metabolic panel - 09/09/19 08:33 Serum or plasma sodium measurement (moles/volume) 128 mmol/L 135-145 Serum or plasma potassium measurement (moles/volume) 3.7 mmol/L 3.6-5.0 Serum or plasma chloride measurement (moles/volume) 94 mmol/L 98-107 Carbon dioxide 21 mmol/L 21-32 Serum or plasma anion gap determination (moles/volume) 13 mmol/L 5-14 Serum or plasma urea nitrogen measurement (mass/volume ) 4 mg/dL 7-18 Serum or plasma creatinine measurement (mass/volume) 0.73 mg/dL 0.60-1.30 Serum or plasma urea nitrogen/creatinine mass ratio 5 NRG Serum or plasma creatinine measurement w ith calculation of estimated glomerular filtration rate > NRG Serum or plasma glucose measurement (mass/volume) 162 mg/dL 70-105 Serum or plasma calcium measurement (mass/volume) 9.4 mg/dL 8.5-10.1 Serum or plasma total bilirubin measurement (mass/volu me) 1.0 mg/dL 0.1-1.0 Serum or plasma alkaline phosphatase shakir surement (enzymatic activity/volume) 90 U/L 40-136 Serum or plasma aspartate aminotransfera se measurement (enzymatic activity/volume) 13 U/L 5-34 Serum or plasma alanine aminotransferase measurement (enzymatic activity/volume) 15 U/L 0-55 Serum or plasma protein measurement (mass/volume) 7.7 g/dL 6.4-8.2 Serum or plasma albumin measurement (mass/volume) 4.4 g/dL 3.2-4.5 CALCIUM CORRECTED 9.1 mg/dL 8.5-10.1 Serum or plasma amylase measurement (enz ymatic activity/volume) - 09/09/19 08:33 Serum or plasma amylase measurement (enzymatic activit y/volume) 15 U/L 25-125 Lipase - 09/09/19 08:33 Lipase 14 U/L 8-78 Complete urinalysis with reflex to cultu re - 09/09/19 09:45 Urine color determination YELLOW NRG Urine clarity determination CLEAR NR G Urine pH measurement by test strip 7.0 5-9 Specific gravity of urine by test strip 1.010 1.016-1.022 Urine protein assay by test strip, [...] urobilinogen measurement by automated test strip (mass/volume) 0.2 mg/dL < = 1.0 Urine leukocyte esterase detection by dipstick NEG ATIVE NEGATIVE Automated urine sediment erythrocyte cou nt by microscopy (number/high power field) [HPF] NRG Automated urine sediment leukocyte count by microscopy (number/high power field) NONE NRG Bacteria detection in urine sediment by [...] urinalysis with reflex to culture NO NRG Urine drug screening test - 09/09/19 09: 45 Urine phencyclidine detection by screening method NEGATIVE NEGATIVE Urine benzodiazepines detection by screening method NEGATIVE NEGATIVE Urine cocaine detection NEGATIVE NEGATI VE Urine amphetamines detection by screening method N EGATIVE NEGATIVE Urine methamphetamine detection by screening method NEGATIVE NEGATIVE Urine cannabinoids detection by screening method P OSITIVE NEGATIVE Urine opiates detection by screening method NEGATI VE NEGATIVE Urine barbiturates detection NEGATIVE N EGATIVE Screening urine tricyclic antidepressants detection POSITIVE NEGATIVE Urine methadone detection by screening method NEGA TIVE NEGATIVE Urine oxycodone detection NEGATIVE NEGA TIVE Urine propoxyphene detection NEGATIVE N EGATIVE Complete blood count (CBC) with automate d white blood cell (WBC) differential - 11/30/19 12:35 Blood leukocytes automated count (number/volume) 15.0 10*3/uL 4.3-11.0 Blood erythrocytes automated count (number/volume) 5.68 10*6/uL 4.35-5.85 Venous blood hemoglobin measurement (mass/volume) 19.1 g/dL 13.3-17.7 Blood hematocrit (volume fraction) 51 % 40-54 Automated erythrocyte mean corpuscular volume 90 [ foz_us] 80-99 Automated erythrocyte mean corpuscular h emoglobin (mass per erythrocyte) 34 pg 25-34 Automated erythrocyte mean corpuscular h emoglobin concentration measurement (mass/volume) 37 g/dL 32-36 Automated erythrocyte distribution width ratio 11. 7 % 10.0- 14.5 Automated blood platelet count (count/volume) 271 10*3/uL 130-400 Automated blood platelet mean volume measurement 10.5 [foz_us] 7.4-10.4 Automated blood neutrophils/100 leukocytes 72 % 42-75 Automated blood lymphocytes/100 leukocytes 16 % 12-44 Blood monocytes/100 leukocytes 12 % 0-12 Automated blood eosinophils/100 leukocytes 0 % 0-10 Automated blood basophils/100 leukocytes 0 % 0-10 Blood neutrophils automated count (number/volume) 10.8 10*3 1.8-7.8 Blood lymphocytes automated count (number/volume) 2.4 10*3 1.0-4.0 Blood monocytes automated count (number/volume) 1. 8 10*3 0.0-1.0 Automated eosinophil count 0.1 10*3/uL 0 .0-0.3 Automated blood basophil count (count/volume) 0.0 10*3/uL 0.0-0.1 Comprehensive metabolic panel - 11/30/19 12:35 Serum or plasma sodium measurement (moles/volume) 128 mmol/L 135-145 Serum or plasma potassium measurement (moles/volume) 3.9 mmol/L 3.6-5.0 Serum or plasma chloride measurement (moles/volume) 87 mmol/L 98-107 Carbon dioxide 23 mmol/L 21-32 Serum or plasma anion gap determination (moles/volume) 18 mmol/L 5-14 Serum or plasma urea nitrogen measurement (mass/volume ) 8 mg/dL 7-18 Serum or plasma creatinine measurement (mass/volume) 1.02 mg/dL 0.60-1.30 Serum or plasma urea nitrogen/creatinine mass ratio 8 NRG Serum or plasma creatinine measurement w ith calculation of estimated glomerular filtration rate > NRG Serum or plasma glucose measurement (mass/volume) 193 mg/dL 70-105 Serum or plasma calcium measurement (mass/volume) 11.1 mg/dL 8.5-10.1 Serum or plasma total bilirubin measurement (mass/volu me) 1.2 mg/dL 0.1-1.0 Serum or plasma alkaline phosphatase shakir surement (enzymatic activity/volume) 113 U/L 40-136 Serum or plasma aspartate aminotransfera se measurement (enzymatic activity/volume) 16 U/L 5-34 Serum or plasma alanine aminotransferase measurement (enzymatic activity/volume) 19 U/L 0-55 Serum or plasma protein measurement (mass/volume) 9.1 g/dL 6.4-8.2 Serum or plasma albumin measurement (mass/volume) 5.1 g/dL 3.2-4.5 Serum ragweed IgE antibody assay - 11/29 12:35 Serum ragweed IgE antibody assay 229 U/L 125-220 PT panel in platelet poor plasma by coag ulation assay - 11/30/19 12:35 Prothrombin time (PT) in platelet poor plasma by coagu lation assay 14.9 s 12.2-14.7 INR in platelet poor plasma or blood by coagulation as say 1.1 0.8-1.4 Activated partial thromboplastin time (a PTT) in platelet poor plasma bycoagulation assay - 11/30/19 12:35 Activated partial thromboplastin time (a PTT) in platelet poor plasma bycoagulation assay 24 s 24-35 Fibrin D-dimer FEU measurement in platel et poor plasma (mass/volume) - 11/30/19 12:35 Fibrin D-dimer FEU measurement in platelet poor plasma (mass/volume) 0.32 ug/mL 0.00-0.49 Blood lactic acid measurement (moles/vol ume) - 11/30/19 12:35 Blood lactic acid measurement (moles/volume) 1.86 mmol/L 0.50-2.00 PROCALCITONIN (PCT) - 11/30/19 12:35 PROCALCITONIN (PCT) 0.06 ng/mL <0.10 Serum or plasma troponin i.cardiac measu rement (mass/volume) - 11/30/19 12:35 Serum or plasma troponin i.cardiac measurement (mass/v olume) 0.041 ng/mL <0.028 Serum or plasma amylase measurement (enz ymatic activity/volume) - 11/30/19 12:35 Serum or plasma amylase measurement (enzymatic activit y/volume) 16 U/L 25-125 Lipase - 11/30/19 12:35 Lipase 15 U/L 8-78 Manual absolute plasma cell count - 11/09 06/30 12:35 Blood monocytes/100 leukocytes 8 % NRG Manual blood segmented neutrophils/100 leukocytes 77 % NRG Blood band neutrophils/100 leukocytes 4 % NRG Manual blood lymphocytes/100 leukocytes 11 % NRG Manual eosinophils/100 leukocytes in nose 0 % NRG Manual blood basophils/100 leukocytes 0 % NRG Blood erythrocyte morphology finding identification NORMAL NRG Erythrocyte sedimentation rate by leann gren method - 11/30/19 12:35 Erythrocyte sedimentation rate by westergren method 1 mm 0- 15 Serum or plasma C reactive protein measu rement (mass/volume) - 11/30/19 12:35 Serum or plasma C reactive protein measurement (mass/v olume) 8.41 mg/dL 0.00-0.50 Capillary blood glucose measurement by g lucometer (mass/volume) - 11/30/19 13:05 Capillary blood glucose measurement by glucometer (mas s/volume) 217 mg/dL 70-110 Complete urinalysis with reflex to cultu re - 11/30/19 14:12 Urine color determination YELLOW NRG Urine clarity determination SL CLOUDY N RG Urine pH measurement by test strip 7.0 5-9 Specific gravity of urine by test strip <= 1.016-1.022 Urine protein assay by test strip, semi-quantitative TRACE NEGATIVE Urine glucose detection by automated test strip TR CANDACE NEGATIVE Erythrocytes detection in urine sediment by light micr oscopy 1+ NEGATIVE Urine ketones detection by automated test strip NE GATIVE NEGATIVE Urine nitrite detection by test strip NEGATIVE NEGATIVE Urine total bilirubin detection by test strip NEGA TIVE NEGATIVE Urine urobilinogen measurement by automated test strip (mass/volume) 0.2 mg/dL < = 1.0 Urine leukocyte esterase detection by dipstick NEG ATIVE NEGATIVE Automated urine sediment erythrocyte cou nt by microscopy (number/high power field) [HPF] NRG Automated urine sediment leukocyte count by microscopy (number/high power field) NONE NRG Bacteria detection in urine sediment by light microsco py NEGATIVE NRG Squamous epithelial cells detection in u rine sediment by light microscopy RARE NRG Crystals detection in urine sediment by light microsco py PRESENT NRG Casts detection in urine sediment by light microscopy NONE NRG Mucus detection in urine sediment by light microscopy NEGATIVE NRG Complete urinalysis with reflex to culture CULTURE PENDING NRG Amorphous sediment detection in urine sediment by ligh t microscopy RARE MAHNAZ PHOSPHATE NRG Urine drug screening test - 11/30/19 14: 12 Urine phencyclidine detection by screening method NEGATIVE NEGATIVE Urine benzodiazepines detection by screening method NEGATIVE NEGATIVE Urine cocaine detection NEGATIVE NEGATI VE Urine amphetamines detection by screening method P OSITIVE NEGATIVE Urine methamphetamine detection by screening method NEGATIVE NEGATIVE Urine cannabinoids detection by screening method P OSITIVE NEGATIVE Urine opiates detection by screening method NEGATI VE NEGATIVE Urine barbiturates detection NEGATIVE N EGATIVE Screening urine tricyclic antidepressants detection POSITIVE NEGATIVE Urine methadone detection by screening method NEGA TIVE NEGATIVE Urine oxycodone detection NEGATIVE NEGA TIVE Urine propoxyphene detection NEGATIVE N EGATIVE Capillary blood glucose measurement by g lucometer (mass/volume) - 11/30/19 16:46 Capillary blood glucose measurement by glucometer (mas s/volume) 180 mg/dL 70-110 Encounters ACCT No. Visit Date/Time Discharge Status Pt. Type Provider Facility Loc./Unit Complaint [id number] 05/22/2016 13:06:00 Document Registration [id number] 09/14/2017 12:14:00 Document Registration [id number] 08/29/2010 19:45:00 Document Registration [id number] 08/02/2014 09:39:00 08/02/2014 23:59: 59 CLS Outpatient RACIEL BURROUGHS DO [id number] 08/02/2014 09:39:00 08/02/2014 23:59: 59 CLS Outpatient RACIEL BURROUGHS DO [id number] 04/18/2014 11:06:00 04/18/2014 23:59: 59 CLS Outpatient MELIZA THORNTON APRN [id number] 04/18/2014 11:06:00 04/18/2014 23:59: 59 CLS Outpatient MELIZA THORNTON APRN [id number] 01/03/2014 11:38:00 01/03/2014 23:59: 59 CLS Outpatient MELIZA THORNTON APRN [id number] 10/04/2013 10:40:00 10/04/2013 23:59: 59 CLS Outpatient MELIZA THORNTON APRN N [id number] 09/30/2013 10:53:00 09/30/2013 23:59: 59 CLS Outpatient RACIEL BURROUGHS DO [id number] 08/23/2013 11:28:00 08/23/2013 23:59: 59 CLS Outpatient MELIZA THORNTON APRN N [id number] 08/23/2013 11:28:00 08/23/2013 23:59: 59 CLS Outpatient MELIZA THORNTON APRN N [id number] 06/07/2013 10:57:00 06/07/2013 23:59: 59 CLS Outpatient YVES BLEVINS MD [id number] 12/09/2012 09:29:00 12/09/2012 23:59: 59 CLS Outpatient MELIZA THONRTON APRN N [id number] 06/08/2012 11:34:00 06/08/2012 23:59: 59 CLS Outpatient YVES BLEVINS MD [id number] 10/19/2019 09:00:00 10/19/2019 23:59: 59 CLS Outpatient HA VELASQUEZ MD [id number] 05/16/2019 11:00:00 Document Registration [id number] 03/21/2019 11:00:00 Document Registration [id number] 03/14/2019 08:45:00 Document Registration [id number] 02/21/2019 11:00:00 Document Registration [id number] 02/02/2019 11:00:00 Document Registration [id number] 01/14/2019 10:00:00 Document Registration [id number] 01/14/2019 09:40:00 Document Registration [id number] 12/28/2018 10:00:00 Document Registration [id number] 12/14/2018 14:40:00 Document Registration [id number] 10/29/2018 09:40:00 Document Registration [id number] 10/05/2018 08:00:00 Document Registration [id number] 09/28/2018 08:00:00 Document Registration [id number] 07/02/2018 14:40:00 Document Registration [id number] 05/27/2018 16:20:00 Document Registration [id number] 12/10/2017 10:20:00 Document Registration [id number] 09/26/2019 10:53:00 23:59:59 CLS Outpatient CLAY BRENNAN MD [facility] [id number] 09/19/2019 10:24:00 23:59:59 CLS Outpatient CLAY BRENNAN MD [facility] [id number] 09/12/2019 10:31:00 23:59:59 CLS Outpatient CLAY BRENNAN MD [facility] [id number] 09/09/2019 08:22:00 10:49:00 DIS Emergency IYER DO, BISMARK L [facility] ER ABD PAIN [id number] 09/05/2019 09:17:00 23:59:59 CLS Outpatient CLAY BRENNAN MD [facility] [id number] 08/29/2019 10:22:00 23:59:59 CLS Outpatient CLAY BRENNAN MD [facility] [id number] 08/22/2019 11:13:00 23:59:59 CLS Outpatient CLAY BRENNAN MD [facility] [id number] 08/22/2019 10:13:00 23:59:59 CLS Outpatient CLAY BRENNAN MD [facility] RAD [id number] 08/15/2019 11:20:00 23:59:59 CLS Outpatient CLAY BRENNAN MD [facility] [id number] 08/01/2019 11:26:00 23:59:59 CLS Outpatient CLAY BRENNAN MD [facility] [id number] 07/21/2019 11:50:00 16:40:00 DIS Outpatient ANSELMO LAN MD [facility] SDC RIGHT THIRD TOE OSTEOMY ELITIS [id number] 07/20/2019 09:13:00 09:44:00 DIS Outpatient ANSELMO LAN MD [facility] PREOP RIGHT THIRD TOE OSTEOMY ELITIS [id number] 07/18/2019 13:25:00 23:59:59 CLS Outpatient CLAY BRENNAN MD [facility] [id number] 07/13/2019 12:54:00 23:59:59 CLS Outpatient CLAY BRENNAN MD [facility] [id number] 06/27/2019 13:14:00 23:59:59 CLS Outpatient YONATAN LUCIO MD [facility] [id number] 06/20/2019 13:15:00 23:59:59 CLS Outpatient YONATAN LUCIO MD [facility] [id number] 06/06/2019 13:35:00 23:59:59 CLS Outpatient ROQUE BAKER MD [facility] [id number] 05/30/2019 13:09:00 23:59:59 CLS Outpatient YONATAN LUCIO MD [facility] [id number] 05/16/2019 12:28:00 23:59:59 CLS Outpatient YONATAN LUCIO MD [facility] [id number] 05/09/2019 11:04:00 23:59:59 CLS Outpatient CLAY BR[facility]NAN [facility] [facility] TYPE 2 DIABETES WITH FO OT ULCER [id number] 05/09/2019 08:44:00 23:59:59 CLS Outpatient CLAY BRENNAN MD [facility] WOUNDCARE [id number] 03/29/2019 11:30:00 14:31:00 DIS Inpatient JERRY JUAREZ, ISAK V [facility] 4TH ILEUS TRANSVERSE COLON,CONSTIPATION,HEPC,UTI [id number] 02/15/2019 05:38:00 08:04:00 DIS Emergency KEVIN ROBB MD [facility] ER BLOOD IN URINE [id number] 01/26/2019 16:23:00 13:30:00 DIS Inpatient ISAK EDWARDS DO, V [facility] 4TH RT FOOT ULCER WITH CELL ULITIS [id number] 09/15/2018 23:00:00 09:56:00 DIS Inpatient [place] SERAFIN JUAREZI Papo [facility] 4TH DRUG OVERDOSE- POLYSUBSTANCE;HYPONATREMIA [id number] 09/04/2018 20:46:00 21:55:00 DIS Emergency PAULETTE KAPLAN [facility] ER FALL [id number] 11/04/2017 13:17:00 23:59:59 CLS Outpatient CLAY BRENNAN MD [facility] WOUNDCARE [id number] 10/30/2017 11:16:00 018 23:59:59 CLS Outpatient CLAY BRENNAN MD [facility] WOUNDCARE [id number] 10/21/2017 13:03:00 23:59:59 CLS Outpatient CLAY BRENNAN MD [facility] WOUNDCARE [id number] 10/14/2017 12:56:00 018 23:59:59 CLS Outpatient CLAY BRENNAN MD [facility] WOUNDCARE [id number] 10/06/2017 13:53:00 018 23:59:59 CLS Outpatient CLAY BRENNAN MD [facility] WOUNDCARE [id number] 10/05/2017 14:13:00 14:15:00 DIS Emergency KEVIN ROBB MD [facility] ER R FOOT DISCOLORATION [id number] 09/30/2017 14:21:00 018 23:59:59 CLS Outpatient CLAY BRENNAN MD [facility] LAB E11.621,E11.42 [id number] 09/30/2017 11:49:00 018 23:59:59 CLS Outpatient CLAY BRENNAN MD [facility] WOUNDCARE [id number] 09/25/2017 14:07:00 018 16:36:00 DIS Emergency WERNER DRIVER APRN [facility] ER RIGHT BIG TOE INFECTION [id number] 09/18/2017 11:20:00 018 16:20:00 DIS Inpatient KRISTINA RODRÍGUEZ MD [facility] 4TH FOOT INFECTION EXCESS B ENZODIAZIPAN ADMIN [id number] 04/26/2015 10:19:00 015 12:00:00 DIS Outpatient SIENA PAEZ MD [facility] WOUNDCARE [id number] 04/10/2015 12:43:00 015 23:59:59 CLS Outpatient SIENA PAEZ MD [facility] RAD PAD [id number] 11/30/2019 11:51:[address] Emergency VILMA CAO MD [facility] ER COVID SYMPTOMS [id number] 04/16/2012 23:32:00 Document Registration [id number] 02/18/2012 10:55:00 Document Registration [id number] 01/10/2011 00:00:00 Document Registration [id number] 12/10/2010 00:00:00 Document Registration [id number] 11/04/2010 12:05:00 Document Registration [id number] 11/03/2010 14:53:00 Document Registration [id number] 10/03/2010 15:10:00 Document Registration [id number] 09/10/2010 09:38:00 Document Registration [id number] 09/04/2010 14:30:00 Document Registration [id number] 09/01/2010 11:50:00 Document Registration [id number] 08/12/2010 19:14:00 Document Registration [id number] 04/16/2018 14:36:00 04/16/2018 15:15: 00 DIS Outpatient Bertha Damon [facility] ER [id number] 01/09/2018 21:10:00 01/10/2018 01:05: 00 DIS Outpatient Bertha Damon [facility] ER [id number] 10/01/2017 00:00:00 11/10/2017 06:53: 00 DIS Outpatient UNLISTED, UNLISTED [id number] 11/04/2017 20:29:00 11/05/2017 00:42: 00 DIS Outpatient HOWARD BRIDGER [facility] ER [id number] 10/05/2017 19:11:00 10/05/2017 21:13: 00 DIS Outpatient NigelcharlotteSherman [facility] ER [id number] 09/14/2017 12:14:00 09/18/2017 10:33: 00 DIS Inpatient Juliana Buckner [facility] MED-SURG [id number] 08/28/2017 12:01:00 08/30/2017 14:50: 00 DIS Inpatient Nataly Pablo [facility] MED-SURG [id number] 12/05/2016 03:10:00 12/05/2016 04:42: 00 DIS Outpatient HOWARD BRIDGER [facility] ER [id number] 12/05/2016 03:31:06 Document Registration [id number] 09/16/2017 10:21:00 Document Registration
--- NOTE | 2019-11-30 19:45 | NUR ---
Pt rude and angry when entering room. Demanding his "night time meds," pain medicine, and "something for heartburn." Pt reminded that he was in an isolation room and that care would be clusted, also that would be notified to continue his HS home medications. Pt became more calm after explanation and promise to notify
[2019-11-30] MEDS: HYDROmorphone 2 MG/ML VIAL (DILAUDID) IV PRN ×2 (19:46→22:45)
[2019-11-30] MEDS ORDERED: MTP100TCR PO (20:04)
[2019-11-30 20:09] VITALS: BP 131/74
[2019-11-30 20:15] LABS: CALCIUM 8.8 MG/DL (8.5-10.1); GLUCOSE 229 MG/DL (70-105)
[2019-11-30 20:17] LABS: CARBON DIOXIDE 22 MMOL/L (21-32)
[2019-11-30 20:19] LABS: CREATININE SERUM 0.83 MG/DL (0.60-1.30); GFR ESTIMATED > 60
[2019-11-30 20:20] LABS: BUN/CREATININE RATIO 7
[2019-11-30 20:32] LABS: CHLORIDE 95 MMOL/L (98-107); POTASSIUM 3.3 MMOL/L (3.6-5.0); SODIUM 131 MMOL/L (135-145)
--- NOTE | 2019-11-30 20:36 | NUR ---
Dr. Adamson notified to continue HS home meds requested by pt. states she will continue medications.
[2019-11-30] MEDS ORDERED: CALCIUM CARBONATE 500 MG (TUMS) TAB.CHEW PO PRN (20:45)
[2019-11-30] MEDS ORDERED: NON-FORMULARY MEDICATION 1 EA EA (Amitriptyline HCl 100 MG) PO SCH (21:00)
[2019-11-30] MEDS ORDERED: rOPINIRole 1 MG (REQUIP) TABLET ONE (21:03)
[2019-11-30] MEDS: DIVALPROEX 500 MG DELAYED RELEASE (DEPAKOTE) TAB PO SCH (21:13)
[2019-11-30] MEDS: inSUlin ASPART (NovoLOG) 1 UNIT/0.01 ML (CHARGE PER UNIT) SC SCH (21:13)
[2019-11-30] MEDS: traZODone 100 MG (DESYREL) TAB PO SCH (21:13)
[2019-11-30] MEDS: meTOprolol SUCCINATE 100 MG (TOPROL XL) TAB PO SCH (21:14)
[2019-11-30] MEDS: AMITRIPTYLINE 50 MG (ELAVIL) TAB PO SCH (21:14)
[2019-11-30] MEDS: rOPINIRole 1 MG (REQUIP) TABLET PO SCH (21:14)
[2019-11-30] MEDS ORDERED: PANTOPRAZOLE 40 MG (PROTONIX) VIAL ONE (22:30)
[2019-11-30] MEDS: PANTOPRAZOLE 40 MG (PROTONIX) VIAL IV SCH (22:45)
[2019-11-30 23:05] VITALS: BP 112/61
[2019-12-01] MEDS: LACTATED RINGERS 1,000 ML IV SCH ×3 (03:16→21:36)
[2019-12-01 03:17] VITALS: BP 134/76
[2019-12-01] MEDS: HYDROmorphone 2 MG/ML VIAL (DILAUDID) IV PRN ×7 (03:35→21:32)
[2019-12-01 06:03] LABS: BASOPHILS % (AUTO) 0 % (0-10); EOSINOPHILS # (AUTO) 0.3 10^3/uL (0.0-0.3); EOSINOPHILS % (AUTO) 3 % (0-10); HEMATOCRIT 38 % (40-54); HEMOGLOBIN 13.8 G/DL (13.3-17.7); LYMPHOCYTES # (AUTO) 2.8 X 10^3 (1.0-4.0); LYMPHOCYTES % (AUTO) 30 % (12-44); MEAN CORPUSCULAR HEMOGLOBIN 34 PG (25-34); MEAN CORPUSCULAR HGB CONC 36 G/DL (32-36); MEAN CORPUSCULAR VOLUME 94 FL (80-99); MEAN PLATELET VOLUME 10.3 FL (7.4-10.4); MONOCYTES # (AUTO) 1.6 X 10^3 (0.0-1.0); MONOCYTES % (AUTO) 17 % (0-12); NEUTROPHILS # (AUTO) 4.8 X 10^3 (1.8-7.8); NEUTROPHILS % (AUTO) 50 % (42-75); PLATELET COUNT 198 10^3/uL (130-400); RED CELL DISTRIBUTION WIDTH 12.1 % (10.0-14.5); WHITE BLOOD COUNT 9.4 10^3/uL (4.3-11.0)
[2019-12-01 06:21] LABS: ALBUMIN 3.3 GM/DL (3.2-4.5)
[2019-12-01 06:22] LABS: CHLORIDE 98 MMOL/L (98-107); POTASSIUM 3.9 MMOL/L (3.6-5.0); SODIUM 131 MMOL/L (135-145)
[2019-12-01 06:23] LABS: CALCIUM 8.6 MG/DL (8.5-10.1)
[2019-12-01 06:24] LABS: GLUCOSE 121 MG/DL (70-105); TOTAL PROTEIN 5.6 GM/DL (6.4-8.2)
[2019-12-01 06:25] LABS: CARBON DIOXIDE 22 MMOL/L (21-32)
[2019-12-01] MEDS: inSUlin ASPART (NovoLOG) 1 UNIT/0.01 ML (CHARGE PER UNIT) SC SCH ×4 (06:25→21:31)
[2019-12-01 06:26] LABS: BILIRUBIN,TOTAL 0.6 MG/DL (0.1-1.0)
[2019-12-01 06:27] LABS: ALKALINE PHOSPHATASE 63 U/L (40-136)
[2019-12-01 06:28] LABS: GFR ESTIMATED > 60
[2019-12-01 06:29] LABS: BUN/CREATININE RATIO 10
[2019-12-01 06:31] LABS: ALANINE AMINOTRANSFERASE 14 U/L (0-55)
[2019-12-01] MEDS: NICOTINE PATCH REMOVAL TP SCH (07:44)
[2019-12-01] MEDS: PANTOPRAZOLE 40 MG (PROTONIX) VIAL IV SCH (07:44)
[2019-12-01] MEDS: DIVALPROEX 500 MG DELAYED RELEASE (DEPAKOTE) TAB PO SCH ×2 (07:45→21:32)
[2019-12-01] MEDS: NICOTINE 21 MG (NICODERM) PATCH TD SCH (07:45)
[2019-12-01] MEDS: meTOprolol SUCCINATE 100 MG (TOPROL XL) TAB PO SCH ×2 (07:45→21:32)
[2019-12-01 07:47] VITALS: BP 119/70
--- NOTE | 2019-12-01 09:30 | NUR ---
DR ESTRADA NOTIFIED OF COVID NEG RESULT
--- NOTE | 2019-12-01 11:03 | History & Physical ---
HPI History of Present Illness: 44 yo male came to ER after onset of severe upper abdominal pain two days ago. He did have nausea/vomiting the night before he came in. Denies diarrhea, but has not had a BM in 3-4 days. Denies fever, nasal congestion, sore throat, chest pain. Admits a little shortness of breath, denies cough- admits chronic smoker's cough. He does drink around 5-6 beers once or twice per week, last drink was maybe Thursday, he does not drink daily and has not had withdrawal in past. He did have pancreatitis once last year. He states he took an adderall 3-4 days ago because he was tired and wanted to go fishing and needed to stay up and knew someone who had it. Otherwise, he states he smokes marijuana occasionally. Source: patient Date seen by provider: Dec 01, 2019 Time Seen by Provider: 11:01 Attending Physician Darvin Adamson MD PCP No,Local Physician Consult Date of Admission Nov 30, 2019 at 15:37 Home Medications Home Medications Reviewed patient Home Medication Reconciliation performed by pharmacy medication reconciliations molding technician and/or nursing. Patients Allergies have been reviewed. Allergies Coded Allergies: latex (Unverified Allergy, Intermediate, 07/20/19) Haloperidol Lactate (Unverified Allergy, Mild, 07/20/19) chlorpromazine HCl (Unverified Allergy, Mild, 07/20/19) haloperidol (Unverified Allergy, Mild, 07/20/19) JQR-Xvedsm-Rkgmch Hx Patient Social History Alcohol Use: Occasionally Uses Recreational Drug Use: Yes Drug of Choice: METH/ADDERAL Smoking Status: Current Everyday Smoker Type Used: Cigarettes 2nd Hand Smoke Exposure: Yes Recent Foreign Travel: No Contact w/other who traveled: No Recent Hopitalizations: No Recent Infectious Disease Expo: No Physical Abuse Screen: Yes Sexual Abuse: No Immunizations Up To Date Date of Pneumonia Vaccine: Jan 09, 2019 Date of Influenza Vaccine: Jan 09, 2019 Past Medical History PMHx: 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 Bipolar Schizophrenia Hypertension Depression Hep c s/p treatment PSH: R hand surgery amputation R 5th toe Family Medical History Family History: AIDS Alcoholism 19 FATHER 19 MOTHER Review of Systems ([facility]) Constitutional: No fever EENTM: No nose congestion, No throat pain Respiratory: No cough Gastrointestinal: see HPI Psychiatric/Neurological: Anxiety, Depressed Reviewed Test Results Reviewed Test Results Lab Laboratory Tests Test 11/30/19 12:01 11/30/19 12:35 11/30/19 13:05 11/30/19 14:12 Range/Units Coronavirus (COVID-19)(PCR) Negative Negative White Blood Count 15.0 H 4.3-11.0 10^3/uL Red Blood Count 5.68 4.35-5.85 10^6/uL Hemoglobin 19.1 H 13.3-17.7 G/DL Hematocrit 51 40-54 % Mean Corpuscular Volume 90 80-99 FL Mean Corpuscular Hemoglobin 34 25-34 PG Mean Corpuscular Hemoglobin Concent 37 H 32-36 G/DL Red Cell Distribution Width 11.7 10.0-14.5 % Platelet Count 271 130-400 10^3/uL Mean Platelet Volume 10.5 H 7.4-10.4 FL Neutrophils (%) (Auto) 72 42-75 % Lymphocytes (%) (Auto) 16 12-44 % Monocytes (%) (Auto) 12 0-12 % Eosinophils (%) (Auto) 0 0-10 % Basophils (%) (Auto) 0 0-10 % Neutrophils # (Auto) 10.8 H 1.8-7.8 X 10^3 Lymphocytes # (Auto) 2.4 1.0-4.0 X 10^3 Monocytes # (Auto) 1.8 H 0.0-1.0 X 10^3 Eosinophils # (Auto) 0.1 0.0-0.3 10^3/uL Basophils # (Auto) 0.0 0.0-0.1 10^3/uL Neutrophils % (Manual) 77 % Lymphocytes % (Manual) 11 % Monocytes % (Manual) 8 % Eosinophils % (Manual) 0 % Basophils % (Manual) 0 % Band Neutrophils 4 % Blood Morphology Comment NORMAL Erythrocyte Sedimentation Rate 1 0-15 MM/HR Prothrombin Time 14.9 H 12.2-14.7 SEC INR Comment 1.1 0.8-1.4 Activated Partial Thromboplast Time 24 24-35 SEC D-Dimer 0.32 0.00-0.49 UG/ML Sodium Level 128 L 135-145 MMOL/L Potassium Level 3.9 3.6-5.0 MMOL/L Chloride Level 87 L 98-107 MMOL/L Carbon Dioxide Level 23 21-32 MMOL/L Anion Gap 18 H 5-14 MMOL/L Blood Urea Nitrogen 8 7-18 MG/DL Creatinine 1.02 0.60-1.30 MG/DL Estimat Glomerular Filtration Rate > 60 BUN/Creatinine Ratio 8 Glucose Level 193 H 70-105 MG/DL Lactic Acid Level 1.86 0.50-2.00 MMOL/L Calcium Level 11.1 H 8.5-10.1 MG/DL Corrected Calcium 8.5-10.1 MG/DL Total Bilirubin 1.2 H 0.1-1.0 MG/DL Aspartate Amino Transf (AST/SGOT) 16 5-34 U/L Alanine Aminotransferase (ALT/SGPT) 19 0-55 U/L Alkaline Phosphatase 113 40-136 U/L Lactate Dehydrogenase 229 H 125-220 U/L Troponin I 0.041 H <0.028 NG/ML C-Reactive Protein High Sensitivity 8.41 H 0.00-0.50 MG/DL Total Protein 9.1 H 6.4-8.2 GM/DL Albumin 5.1 H 3.2-4.5 GM/DL Amylase Level 16 L 25-125 U/L Lipase 15 8-78 U/L Procalcitonin 0.06 <0.10 NG/ML Glucometer 217 H 70-110 MG/DL Urine Color YELLOW Urine Clarity SL CLOUDY Urine pH 7.0 5-9 Urine Specific [place] <=1.005 1.016-1.022 Urine Protein TRACE H NEGATIVE Urine Glucose (UA) TRACE H NEGATIVE Urine Ketones NEGATIVE NEGATIVE Urine Nitrite NEGATIVE NEGATIVE Urine Bilirubin NEGATIVE NEGATIVE Urine Urobilinogen 0.2 < = 1.0 MG/DL Urine Leukocyte Esterase NEGATIVE NEGATIVE Urine RBC (Auto) 1+ H NEGATIVE Urine RBC 0-2 /HPF Urine WBC NONE /HPF Urine Squamous Epithelial Cells RARE /HPF Urine Crystals PRESENT H /LPF Urine Amorphous Sediment RARE MAHNAZ PHOSPHATE H /LPF Urine Bacteria NEGATIVE /HPF Urine Casts NONE /LPF Urine Mucus NEGATIVE /LPF Urine Culture Indicated CULTURE PENDING Urine Opiates Screen NEGATIVE NEGATIVE Urine Oxycodone Screen NEGATIVE NEGATIVE Urine Methadone Screen NEGATIVE NEGATIVE Urine Propoxyphene Screen NEGATIVE NEGATIVE Urine Barbiturates Screen NEGATIVE NEGATIVE Ur Tricyclic Antidepressants Screen POSITIVE H NEGATIVE Urine Phencyclidine Screen NEGATIVE NEGATIVE Urine Amphetamines Screen POSITIVE H NEGATIVE Urine Methamphetamines Screen NEGATIVE NEGATIVE Urine Benzodiazepines Screen NEGATIVE NEGATIVE Urine Cocaine Screen NEGATIVE NEGATIVE Urine Cannabinoids Screen POSITIVE H NEGATIVE Test 11/30/19 16:46 11/30/19 19:45 11/30/19 19:46 12/01/19 05:46 Range/Units Glucometer 180 H 238 H 70-110 MG/DL Sodium Level 131 L 131 L 135-145 MMOL/L Potassium Level 3.3 L 3.9 3.6-5.0 MMOL/L Chloride Level 95 L 98 98-107 MMOL/L Carbon Dioxide Level 22 22 21-32 MMOL/L Anion Gap 14 11 5-14 MMOL/L Blood Urea Nitrogen 6 L 7 7-18 MG/DL Creatinine 0.83 0.70 0.60-1.30 MG/DL Estimat Glomerular Filtration Rate > 60 > 60 BUN/Creatinine Ratio 7 10 Glucose Level 229 H 121 H 70-105 MG/DL Calcium Level 8.8 8.6 8.5-10.1 MG/DL White Blood Count 9.4 4.3-11.0 10^3/uL Red Blood Count 4.07 L 4.35-5.85 10^6/uL Hemoglobin 13.8 # 13.3-17.7 G/DL Hematocrit 38 L 40-54 % Mean Corpuscular Volume 94 80-99 FL Mean Corpuscular Hemoglobin 34 25-34 PG Mean Corpuscular Hemoglobin Concent 36 32-36 G/DL Red Cell Distribution Width 12.1 10.0-14.5 % Platelet Count 198 130-400 10^3/uL Mean Platelet Volume 10.3 7.4-10.4 FL Neutrophils (%) (Auto) 50 42-75 % Lymphocytes (%) (Auto) 30 12-44 % Monocytes (%) (Auto) 17 H 0-12 % Eosinophils (%) (Auto) 3 0-10 % Basophils (%) (Auto) 0 0-10 % Neutrophils # (Auto) 4.8 1.8-7.8 X 10^3 Lymphocytes # (Auto) 2.8 1.0-4.0 X 10^3 Monocytes # (Auto) 1.6 H 0.0-1.0 X 10^3 Eosinophils # (Auto) 0.3 0.0-0.3 10^3/uL Basophils # (Auto) 0.0 0.0-0.1 10^3/uL Corrected Calcium 9.2 8.5-10.1 MG/DL Total Bilirubin 0.6 0.1-1.0 MG/DL Aspartate Amino Transf (AST/SGOT) 14 5-34 U/L Alanine Aminotransferase (ALT/SGPT) 14 0-55 U/L Alkaline Phosphatase 63 40-136 U/L Total Protein 5.6 L 6.4-8.2 GM/DL Albumin 3.3 3.2-4.5 GM/DL Test 12/01/19 09:46 Range/Units Glucometer 204 H 70-110 MG/DL Radiology 11/29 CT abdomen IMPRESSION: 1. Stranding associated with the pancreaticoduodenal groove likely representing pancreatitis. Alternatively, this could represent peptic ulcer disease, but no ulcer is seen on CT. Physical Exam-([facility]) Physical Exam Vital Signs VS - Last 72 Hours, by Label 11/30/19 11/30/19 11/30/19 11/30/19 11:50 15:50 16:21 16:48 Temp 36.6 37.4 Pulse 139 87 87 Resp 40 20 18 B/P (MAP) 147/109 (122) 143/85 153/81 Pulse Ox 100 95 98 98 O2 Delivery Room Air Room Air Room Air 11/30/19 11/30/19 11/30/19 12/01/19 19:45 20:09 23:05 03:17 Temp 37.6 37.2 36.6 Pulse 95 88 80 Resp 18 18 18 B/P (MAP) 131/74 (93) 112/61 (78) 134/76 (95) Pulse Ox 95 95 98 96 O2 Delivery Room Air Room Air Room Air Room Air 12/01/19 12/01/19 12/01/19 07:47 07:50 12:14 Temp 36.6 36.0 Pulse 76 72 Resp 18 18 B/P (MAP) 119/70 (86) 128/57 (80) Pulse Ox 97 97 97 O2 Delivery Room Air Room Air Room Air Capillary Refill : Less Than 3 Seconds General Appearance: mild distress Respiratory: lungs clear, normal breath sounds Cardiovascular: regular rate, rhythm, no murmur Gastrointestinal: normal bowel sounds, soft, guarding, tenderness Extremities: no pedal edema Neurologic/Psychiatric: alert, normal mood/affect Skin: normal color, warm/dry Assessment/Plan Assessment/Plan Admission Status: Inpatient Order (span 2 midnights) Reason for Inpatient Admission: Pancreatitis (1) Acute on chronic pancreatitis Status: Acute Assessment & Plan: Lipase normal, but CT findings and clinical exam consistent. He states he plans to quit drinking entirely, but has not been drinking regularly and has no history of withdrawal, monitor for signs of withdrawal. IVF, antiemetics and pain medication, CLD, IV PPI. (2) Hyponatremia Status: Acute Assessment & Plan: Suspect secondary to alcohol and volume depletion, improving with hydration. (3) Essential (primary) hypertension Status: Chronic Assessment & Plan: Resume home medications (4) Bipolar disorder Status: Chronic Assessment & Plan: Resume home medications. (5) Hepatitis C Status: Chronic Assessment & Plan: Treated with complete response per patient report. (6) Non-insulin dependent type 2 diabetes mellitus Status: Chronic Assessment & Plan: A1c less than 6 in clinic 03/2019, not on medications. Check glucose ACHS. (7) Schizophrenia Status: Chronic Assessment & Plan: Resume home medications (8) DVT prophylaxis Status: Acute Assessment & Plan: Enoxaparin Clinical Quality Measures DVT/VTE Risk/Contraindication: Risk Factor Score Per Nursin RFS Level Per Nursing on Admit: 3=High DARVIN ADAMSON MD Dec 01, 2019 11:03
[2019-12-01] MEDS ORDERED: RT-ALBUTEROL SULF 2.5 MG/3 ML PRE-MIX VIAL INH PRN (11:15)
[2019-12-01] MEDS ORDERED: GABA300S2 PO (11:18)
[2019-12-01] MEDS: polyethylene glycoL POWDER 17 GM (MIRALAX) PACK PO PRN ×2 (11:31→21:36)
--- NOTE | 2019-12-01 11:41 | NUR ---
PT INFORMED OF NON-FORMULARY MED VRAYLAR. PT ASKED TO BRING MED FROM HOME. PT STATS " I THINK I WILL BE GOOD FOR A COUPLE DAYS".
[2019-12-01 12:14] VITALS: BP 128/57
[2019-12-01] MEDS: ENOXAPARIN 40 MG/0.4 ML (LOVENOX) SYR SC SCH (14:37)
[2019-12-01 16:48] VITALS: BP 135/79
[2019-12-01] MEDS ORDERED: NON-FORMULARY MEDICATION 1 EA EA (Ropinirole HCl 3 MG) PO SCH (20:00)
[2019-12-01 20:11] VITALS: BP 118/77
[2019-12-01] MEDS: GABAPENTIN 300 MG (NEURONTIN) CAP PO SCH (21:32)
[2019-12-01] MEDS: AMITRIPTYLINE 50 MG (ELAVIL) TAB PO SCH (21:32)
[2019-12-01] MEDS: traZODone 100 MG (DESYREL) TAB PO SCH (21:32)
[2019-12-01] MEDS: rOPINIRole 1 MG (REQUIP) TABLET PO SCH (21:32)
[2019-12-02] VITALS: BP 140/81
[2019-12-02] MEDS: HYDROmorphone 2 MG/ML VIAL (DILAUDID) IV PRN ×4 (02:59→22:54)
[2019-12-02 06:26] LABS: BASOPHILS % (AUTO) 1 % (0-10); EOSINOPHILS # (AUTO) 0.3 10^3/uL (0.0-0.3); EOSINOPHILS % (AUTO) 4 % (0-10); HEMATOCRIT 39 % (40-54); HEMOGLOBIN 13.9 G/DL (13.3-17.7); LYMPHOCYTES # (AUTO) 2.8 X 10^3 (1.0-4.0); LYMPHOCYTES % (AUTO) 36 % (12-44); MEAN CORPUSCULAR HEMOGLOBIN 34 PG (25-34); MEAN CORPUSCULAR HGB CONC 35 G/DL (32-36); MEAN CORPUSCULAR VOLUME 96 FL (80-99); MEAN PLATELET VOLUME 10.6 FL (7.4-10.4); MONOCYTES # (AUTO) 1.2 X 10^3 (0.0-1.0); MONOCYTES % (AUTO) 16 % (0-12); NEUTROPHILS # (AUTO) 3.4 X 10^3 (1.8-7.8); NEUTROPHILS % (AUTO) 44 % (42-75); PLATELET COUNT 205 10^3/uL (130-400); RED CELL DISTRIBUTION WIDTH 11.9 % (10.0-14.5); WHITE BLOOD COUNT 7.7 10^3/uL (4.3-11.0)
[2019-12-02 06:40] LABS: CHLORIDE 99 MMOL/L (98-107); POTASSIUM 4.7 MMOL/L (3.6-5.0); SODIUM 132 MMOL/L (135-145)
[2019-12-02 06:41] LABS: CALCIUM 8.7 MG/DL (8.5-10.1)
[2019-12-02 06:42] LABS: GLUCOSE 97 MG/DL (70-105)
[2019-12-02 06:43] LABS: CARBON DIOXIDE 23 MMOL/L (21-32)
[2019-12-02 06:46] LABS: CREATININE SERUM 0.67 MG/DL (0.60-1.30); GFR ESTIMATED > 60
[2019-12-02 06:47] LABS: BUN/CREATININE RATIO 7
[2019-12-02 06:48] LABS: MAGNESIUM 1.6 MG/DL (1.6-2.4)
[2019-12-02] MEDS: inSUlin ASPART (NovoLOG) 1 UNIT/0.01 ML (CHARGE PER UNIT) SC SCH ×4 (07:24→19:45)
[2019-12-02] MEDS: LACTATED RINGERS 1,000 ML IV SCH ×2 (07:26→17:19)
[2019-12-02 08:00] VITALS: BP 138/84
[2019-12-02] MEDS ORDERED: CARIPRAZINE HYDROCHLORIDE 4.5 MG PO SCH (09:00)
[2019-12-02] MEDS ORDERED: NON-FORMULARY MEDICATION 1 EA EA (Duloxetine HCl 60 MG) PO SCH (09:00)
[2019-12-02] MEDS: NICOTINE 21 MG (NICODERM) PATCH TD SCH (09:10)
[2019-12-02] MEDS: meTOprolol SUCCINATE 100 MG (TOPROL XL) TAB PO SCH ×2 (09:10→21:32)
[2019-12-02] MEDS: PANTOPRAZOLE 40 MG (PROTONIX) TAB PO SCH (09:10)
[2019-12-02] MEDS: DIVALPROEX 500 MG DELAYED RELEASE (DEPAKOTE) TAB PO SCH ×2 (09:10→21:32)
[2019-12-02] MEDS: GABAPENTIN 300 MG (NEURONTIN) CAP PO SCH ×2 (09:10→21:32)
[2019-12-02] MEDS: DULoxetine 30 MG (CYMBALTA) CAP PO SCH (09:11)
[2019-12-02] MEDS: NICOTINE PATCH REMOVAL TP SCH (09:12)
[2019-12-02 11:11] VITALS: BP 130/66
--- NOTE | 2019-12-02 14:33 | Progress Note ---
Subjective Subjective/Events-last exam Afebrile, no acute events. Pain is a little better, would like to try oral pain medication. Focused Exam Lactate Level 11/30/19 12:35: Lactic Acid Level 1.86 Objective Exam Last Set of Vital Signs Vital Signs Date Time Temp Pulse Resp B/P (MAP) Pulse Ox O2 Delivery O2 Flow Rate FiO2 12/02/19 11:11 () Capillary Refill : Less Than 3 Seconds I&O Intake and Output 12/02/19 00:00 Intake Total 3835 ml Output Total 325 ml Balance 3510 ml Intake Oral 1835 ml IV Total 2000 ml Output Urine Total 325 ml # Voids 6 General: Alert, No Acute Distress Lungs: Clear to Auscultation, Normal Air Movement Heart: Regular Rate, No Murmurs Abdomen: Normal Bowel Sounds, Soft, Other (mild epigastric ttp) Psych/Mental Status: Mood NL Results/Procedures Lab Laboratory Tests 12/01/19 19:39: Glucometer 115H 12/02/19 06:14: Glucometer 107 12/02/19 06:15: White Blood Count 7.7, Red Blood Count 4.11L, Hemoglobin 13.9, Hematocrit 39L, Mean Corpuscular Volume 96, Mean Corpuscular Hemoglobin 34, Mean Corpuscular Hemoglobin Concent 35, Red Cell Distribution Width 11.9, Platelet Count 205, Mean Platelet Volume 10.6H, Neutrophils (%) (Auto) 44, Lymphocytes (%) (Auto) 36, Monocytes (%) (Auto) 16H, Eosinophils (%) (Auto) 4, Basophils (%) (Auto) 1, Neutrophils # (Auto) 3.4, Lymphocytes # (Auto) 2.8, Monocytes # (Auto) 1.2H, Eosinophils # (Auto) 0.3, Basophils # (Auto) 0.0, Sodium Level 132L, Potassium Level 4.7, Chloride Level 99, Carbon Dioxide Level 23, Anion Gap 10, Blood Urea Nitrogen 5L, Creatinine 0.67, Estimat Glomerular Filtration Rate > 60, BUN/Creatinine Ratio 7, Glucose Level 97, Calcium Level 8.7, Magnesium Level 1.6 12/02/19 11:16: Glucometer 127H Microbiology 11/30/19 Blood Culture - Preliminary, Resulted Probable Coag Negative Staph 11/30/19 Urine Culture - Final, Complete NO GROWTH Radiology 11/29 CT abdomen IMPRESSION: 1. Stranding associated with the pancreaticoduodenal groove likely representing pancreatitis. Alternatively, this could represent peptic ulcer disease, but no ulcer is seen on CT. Assessment/Plan Assessment/Plan (1) Acute on chronic pancreatitis Status: Acute Assessment & Plan: Lipase normal, but CT findings and clinical exam consistent. He states he plans to quit drinking entirely, but has not been drinking regularly and has no history of withdrawal, monitor for signs of withdrawal. IVF, antiemetics and pain medication, CLD, IV PPI. 12/01 LFTs improving, clinically improving, advance diet as tolerated and start oral pain medication (2) Hyponatremia Status: Acute Assessment & Plan: Suspect secondary to alcohol and volume depletion, improving with hydration. (3) Essential (primary) hypertension Status: Chronic Assessment & Plan: Resume home medications (4) Bipolar disorder Status: Chronic Assessment & Plan: Resume home medications. (5) Hepatitis C Status: Chronic Assessment & Plan: Treated with complete response per patient report. (6) Non-insulin dependent type 2 diabetes mellitus Status: Chronic Assessment & Plan: A1c less than 6 in clinic 03/2019, not on medications. Check glucose ACHS. (7) Schizophrenia Status: Chronic Assessment & Plan: Resume home medications (8) DVT prophylaxis Status: Acute Assessment & Plan: Enoxaparin Clinical Quality Measures DVT/VTE Risk/Contraindication: Risk Factor Score Per Nursin RFS Level Per Nursing on Admit: 3=High DARVIN ESTRADA MD Dec 02, 2019 14:33
[2019-12-02 15:00] VITALS: BP 159/60
[2019-12-02] MEDS: ENOXAPARIN 40 MG/0.4 ML (LOVENOX) SYR SC SCH (15:54)
--- NOTE | 2019-12-02 16:15 | NUR ---
CM/SS visited with the patient for discharge planning. Plan: The patient will discharge home. He reports he does not need anything that this sw could provide. CM/SS attempted to discuss discharge planning with the patient. CM/SS walked in and the patient stated loudly "Don't send the bill to my mother". CM/SS informed the patient that this sw did discharge planning and not billing. The patient seemed to be very short with this sw and did not want to answer questions. He stated that he had " no needs". CM/SS inquired about the patients alcohol consumption. He stated that he would not use any resources and was "just not going to buy it". CM/SS left resources for [facility] on side table. The patient verbalized understanding. No further needs.
--- NOTE | 2019-12-02 19:30 | NUR ---
THIS RN WALKED INTO PT ROOM. PT YELLS, "I'VE BEEN WAITING A FUCKING HOUR FOR PAIN MEDICATION. WHERE THE FUCK IS THE MOTHERFUCKING DILAUDID?" THIS RN EXPLAINED TO PT THAT I WAS UNAWARE OF PT'S PAIN RATING D/T JUST COMING ONTO SHIFT AND WAS JUST FINISHING UP REPORT. PT RESPONDS, "I DON'T GIVE A FUCK. I ASKED FOR PAIN MEDICATION AN HOUR AGO AND NO ONE EVER BROUGHT ANY IN." THIS RN INFORMED PT OF AVAILABLE PAIN MEDICATION AND FREQUENCY. PAIN MEDICATION GIVEN PER ORDER. USING THERAPEUTIC COMMUNICATION, THIS RN EXPLAINED THE RULES AND POLICIES OF THE HOSPITAL, EMPHASIZING USE OF APPROPRIATE LANGUAGE AND BEHAVIOR WHILE IN THE HOSPITAL. PT APOLOGIZES AND VERBALIZES UNDERSTANDING OF TEACHING. WILL CONTINUE TO MONITOR.
[2019-12-02] MEDS: rOPINIRole 1 MG (REQUIP) TABLET PO SCH (19:52)
[2019-12-02] MEDS: traZODone 100 MG (DESYREL) TAB PO SCH (21:32)
[2019-12-02] MEDS: AMITRIPTYLINE 50 MG (ELAVIL) TAB PO SCH (21:32)
--- NOTE | 2019-12-02 22:54 | NUR ---
PT RATING PAIN 10/10 TO ABDOMEN- WHILE TALKING ON THE PHONE AND LAUGHING. PT EDUCATED ON THE NUMERIC PAIN SCALE, RANGING FROM ZERO TO TEN, WITH ZERO BEING NO PAIN AT ALL AND TEN BEING THE WORST PAIN YOU HAVE EVER EXPERIENCED. PT CONTINUES TO LAUGH AND TALK ON THE PHONE WHILE STILL RATING PAIN 10/10. PAIN MEDICATION GIVEN.
[2019-12-03 00:40] VITALS: BP 167/103
[2019-12-03 00:55] VITALS: BP 162/88
[2019-12-03] MEDS: HYDROmorphone 2 MG/ML VIAL (DILAUDID) IV PRN ×4 (02:00→10:57)
[2019-12-03] MEDS: LACTATED RINGERS 1,000 ML IV SCH (02:05)
[2019-12-03] MEDS: inSUlin ASPART (NovoLOG) 1 UNIT/0.01 ML (CHARGE PER UNIT) SC SCH ×2 (06:06→10:57)
[2019-12-03 06:17] LABS: MEAN PLATELET VOLUME 10.8 FL (7.4-10.4); RED CELL DISTRIBUTION WIDTH 11.9 % (10.0-14.5); WHITE BLOOD COUNT 7.1 10^3/uL (4.3-11.0)
[2019-12-03 06:30] LABS: ALBUMIN 3.4 GM/DL (3.2-4.5); CHLORIDE 97 MMOL/L (98-107); POTASSIUM 4.1 MMOL/L (3.6-5.0); SODIUM 132 MMOL/L (135-145)
[2019-12-03 06:31] LABS: CALCIUM 8.6 MG/DL (8.5-10.1)
[2019-12-03 06:33] LABS: GLUCOSE 96 MG/DL (70-105); TOTAL PROTEIN 5.8 GM/DL (6.4-8.2)
[2019-12-03 06:34] LABS: CARBON DIOXIDE 24 MMOL/L (21-32)
[2019-12-03 06:35] LABS: BILIRUBIN,TOTAL 0.4 MG/DL (0.1-1.0)
[2019-12-03 06:36] LABS: ALKALINE PHOSPHATASE 61 U/L (40-136); CREATININE SERUM 0.64 MG/DL (0.60-1.30); GFR ESTIMATED > 60
[2019-12-03 06:37] LABS: BUN/CREATININE RATIO 6
[2019-12-03 06:39] LABS: ALANINE AMINOTRANSFERASE 11 U/L (0-55)
[2019-12-03 08:00] VITALS: BP 160/109
[2019-12-03] MEDS: NICOTINE 21 MG (NICODERM) PATCH TD SCH (08:06)
[2019-12-03] MEDS: GABAPENTIN 300 MG (NEURONTIN) CAP PO SCH (08:09)
[2019-12-03] MEDS: DIVALPROEX 500 MG DELAYED RELEASE (DEPAKOTE) TAB PO SCH (08:09)
[2019-12-03] MEDS: PANTOPRAZOLE 40 MG (PROTONIX) TAB PO SCH (08:09)
[2019-12-03] MEDS: NICOTINE PATCH REMOVAL TP SCH (08:09)
[2019-12-03] MEDS: DULoxetine 30 MG (CYMBALTA) CAP PO SCH (08:09)
[2019-12-03] MEDS: meTOprolol SUCCINATE 100 MG (TOPROL XL) TAB PO SCH (08:09)
[2019-12-03] MEDS ORDERED: HYDR4TAB PO (11:37)
--- NOTE | 2019-12-03 11:47 | Discharge Summary ---
Diagnosis/Chief Complaint Date of Admission Nov 30, 2019 at 15:37 Date of Discharge December 03 2019 1300 Discharge Date: Dec 03, 2019 Discharge Time: 13:00 Admission Diagnosis Acute on chronic pancreatitis Primary Care No,Local Physician Discharge Diagnosis Acute pancreatitis by CT Abdominal pain secondary to number 1 Hypertension Type II diabetes with a hemoglobin A1c of 6 Schizophrenia Chronic depression Illicit drug use History of excessive alcohol intake Discharge Summary Procedures/Consulations CT abdomen pelvis Discharge Physical Exam Allergies: Coded Allergies: latex (Unverified Allergy, Intermediate, 07/20/19) Haloperidol Lactate (Unverified Allergy, Mild, 07/20/19) chlorpromazine HCl (Unverified Allergy, Mild, 07/20/19) haloperidol (Unverified Allergy, Mild, 07/20/19) Vitals & I&Os Vital Signs Date Time Temp Pulse Resp B/P (MAP) Pulse Ox O2 Delivery O2 Flow Rate FiO2 12/03/19 08:00 36.5 72 20 160/109 (126) 97 Room Air General Appearance: Chronically ill, Obese HEENT: Normal ENT Inspection Respiratory: Lungs Clear, Normal Breath Sounds, No Accessory Muscle Use, No Respiratory Distress Cardiovascular: Regular Rate, Rhythm, No Edema, No Gallop, No JVD, No Murmur Gastrointestinal: Normal Bowel Sounds, Soft, Tenderness (Diffusely) Extremity: Normal Inspection, Normal Range of Motion, Non Tender, No Calf Tenderness Skin: Normal Color, Warm/Dry Neurologic/Psychiatric: Alert, Oriented x3, No Motor/Sensory Deficits, Other (Anxious) Hospital Course Was the Problem List Reviewed?: Yes The patient was diagnosed with abdominal pain with evidence of pancreatitis on CT. Amylase lipase were normal. The patient continued to have abdominal pain requiring IV on it throughout the hospitalization.. Appetite was good and eating did not seem to make the pain worse. At the time of discharge the patient is hemodynamically stable still requiring some IV pain medication. He does want to go home and swears off drinking forever. Labs (last 24 hrs) Laboratory Tests 12/02/19 14:59: Glucometer 126H 12/02/19 15:53: Glucometer 106 12/02/19 19:38: Glucometer 122H 12/03/19 05:29: White Blood Count 7.1, Red Blood Count 3.85L, Hemoglobin 13.0L, Hematocrit 37L, Mean Corpuscular Volume 97, Mean Corpuscular Hemoglobin 34, Mean Corpuscular Hemoglobin Concent 35, Red Cell Distribution Width 11.9, Platelet Count 196, Mean Platelet Volume 10.8H, Sodium Level 132L, Potassium Level 4.1, Chloride Level 97L, Carbon Dioxide Level 24, Anion Gap 11, Blood Urea Nitrogen 4L, Creatinine 0.64, Estimat Glomerular Filtration Rate > 60, BUN/Creatinine Ratio 6, Glucose Level 96, Calcium Level 8.6, Corrected Calcium 9.1, Total Bilirubin 0.4, Aspartate Amino Transf (AST/SGOT) 12, Alanine Aminotransferase (ALT/SGPT) 11, Alkaline Phosphatase 61, Total Protein 5.8L, Albumin 3.4 12/03/19 05:47: Glucometer 97 12/03/19 10:39: Glucometer 150H Microbiology 11/30/19 Blood Culture - Preliminary, Resulted Emilie Billy Neg ([employer]) See Report 11/30/19 Urine Culture - Final, Complete NO GROWTH Patient resulted labs reviewed. Pending Labs Laboratory Tests 12/03/19 05:29: White Blood Count 7.1, Red Blood Count 3.85, Hemoglobin 13.0, Hematocrit 37, Mean Corpuscular Volume 97, Mean Corpuscular Hemoglobin 34, Mean Corpuscular Hemoglobin Concent 35, Red Cell Distribution Width 11.9, Platelet Count 196, Mean Platelet Volume 10.8, Sodium Level 132, Potassium Level 4.1, Chloride Level 97, Carbon Dioxide Level 24, Anion Gap 11, Blood Urea Nitrogen 4, Creatinine 0.64, Estimat Glomerular Filtration Rate > 60, BUN/Creatinine Ratio 6, Glucose Level 96, Calcium Level 8.6, Corrected Calcium 9.1, Total Bilirubin 0.4, Aspartate Amino Transf (AST/SGOT) 12, Alanine Aminotransferase (ALT/SGPT) 11, Alkaline Phosphatase 61, Total Protein 5.8, Albumin 3.4 12/03/19 05:47: Glucometer 97 12/03/19 10:39: Glucometer 150 Imaging: Reviewed Imaging Report Discussion & Recommendations Discharge Planning: <30 minutes discharge planning Discharge Home Medications: Active Scripts Active Hydromorphone HCl 4 Mg Tablet 4 Mg PO Q6H PRN 3 Days Reported Gabapentin 300 Mg/6 Ml Solution 300 Mg PO BID Metoprolol Succinate 100 Mg Tab.er.24h 100 Mg PO BID Vraylar (Cariprazine Hydrochloride) 4.5 Mg Capsule 4.5 Mg PO DAILY Amitriptyline HCl 100 Mg Tablet 100 Mg PO HS Trazodone HCl 100 Mg Tablet 100 Mg PO HS Ventolin Hfa (Albuterol Sulfate) 18 Gm Hfa.aer.ad 2 Puff INH Q4H PRN Lisinopril 20 Mg Tablet 20 Mg PO DAILY Ropinirole HCl 3 Mg Tablet 3 Mg PO 2000 Divalproex Sodium 500 Mg Tablet.dr 500 Mg PO BID Duloxetine HCl 60 Mg Capsule.dr 60 Mg PO DAILY Condition at discharge Stable Instructions to patient/family Please see electronic discharge instructions given to patient. Clinical Quality Measures DVT/VTE Risk/Contraindication: Risk Factor Score Per Nursin RFS Level Per Nursing on Admit: 3=High Copy Copies To 1: [facility]/JOSSY SANCHEZ MD Dec 03, 2019 11:47
[2019-12-03 12:42] VITALS: BP 160/109
== END 2019-12-03 12:15 | disposition home or self-care (01) | DRG 439 ==
LOC: EDUNIT# 11:50 → ER 11:51 → 4TH 15:37 → ER 15:55 → 4TH 12-02 17:30
PROVIDERS: ADMIT Family Medicine; ATTEND Family Medicine
DX: K85.90 Acute pancreatitis without necrosis or infection, unspecified (principal); E87.1 Hypo-osmolality and hyponatremia; K86.1 Other chronic pancreatitis; I10 Essential (primary) hypertension; E11.40 Type 2 diabetes mellitus with diabetic neuropathy, unspecified; K75.9 Inflammatory liver disease, unspecified; F17.210 Nicotine dependence, cigarettes, uncomplicated; R06.02 Shortness of breath; R53.1 Weakness; F10.20 Alcohol dependence, uncomplicated; F31.9 Bipolar disorder, unspecified; F41.9 Anxiety disorder, unspecified; F20.9 Schizophrenia, unspecified; F15.10 Other stimulant abuse, uncomplicated; Z20.828 Contact with and (suspected) exposure to other viral communicable diseases; Z89.411 Acquired absence of right great toe; Z89.421 Acquired absence of other right toe(s); Z91.5 Personal history of self-harm
CPT/HCPCS: 36415; 71045; 74177; 80048; 80053; 80306; 81000; 82150; 82962; 83036; 83605; 83615; 83690; 83735; 84145; 84484; 85007; 85025; 85027; 85379; 85610; 85652; 85730; 86141; 87040; 87088; 87635; 96374; 96375; 96376

== ENCOUNTER → 2020-02-15 | Outpatient (CLI) | payer MEDICARE, MEDICAID ==
[~2020-02-15] MED LIST changes: +GABA300S2 PO; +HYDR4TAB PO; +MTP100TCR PO
== END ==
LOC: WOUNDCARE 08:18
PROVIDERS: ATTEND Surgery
DX: E11.621 Type 2 diabetes mellitus with foot ulcer (principal); E11.42 Type 2 diabetes mellitus with diabetic polyneuropathy; L97.522 Non-pressure chronic ulcer of other part of left foot with fat layer exposed; B35.3 Tinea pedis; Z20.828 Contact with and (suspected) exposure to other viral communicable diseases
CPT/HCPCS: 11042

== ENCOUNTER → 2020-02-23 | Outpatient (CLI) | payer MEDICARE, MEDICAID | LOC: WOUNDCARE 12:30 | PROVIDERS: ATTEND Surgery | DX: E11.621 Type 2 diabetes mellitus with foot ulcer (principal); E11.42 Type 2 diabetes mellitus with diabetic polyneuropathy; L97.522 Non-pressure chronic ulcer of other part of left foot with fat layer exposed; B35.3 Tinea pedis | CPT/HCPCS: 99213 ==

== ENCOUNTER → 2020-02-28 | Outpatient (CLI) | payer MEDICARE, MEDICAID | LOC: WOUNDCARE 12:27 | PROVIDERS: ATTEND Surgery | DX: E11.52 Type 2 diabetes mellitus with diabetic peripheral angiopathy with gangrene (principal); E11.621 Type 2 diabetes mellitus with foot ulcer; I96 Gangrene, not elsewhere classified; E11.42 Type 2 diabetes mellitus with diabetic polyneuropathy; L97.522 Non-pressure chronic ulcer of other part of left foot with fat layer exposed; B35.3 Tinea pedis | CPT/HCPCS: 11042; G0463 ==

== ENCOUNTER → 2020-03-06 | Outpatient (CLI) | payer MEDICARE, MEDICAID ==
[~2020-03-06] MED LIST changes: +AMLO-251 PO; -AMLO10TA7 PO
== END ==
LOC: WOUNDCARE 13:08
PROVIDERS: ATTEND Surgery
DX: E11.621 Type 2 diabetes mellitus with foot ulcer (principal); L97.522 Non-pressure chronic ulcer of other part of left foot with fat layer exposed; E11.42 Type 2 diabetes mellitus with diabetic polyneuropathy; I96 Gangrene, not elsewhere classified; B35.3 Tinea pedis
CPT/HCPCS: 11042; G0463

== ENCOUNTER → 2020-03-20 | Outpatient (CLI) | payer MEDICARE, MEDICAID | LOC: WOUNDCARE 03-15 13:00 | PROVIDERS: ATTEND Surgery | DX: E11.621 Type 2 diabetes mellitus with foot ulcer (principal); E11.42 Type 2 diabetes mellitus with diabetic polyneuropathy; L97.521 Non-pressure chronic ulcer of other part of left foot limited to breakdown of skin; B35.3 Tinea pedis; E11.52 Type 2 diabetes mellitus with diabetic peripheral angiopathy with gangrene; Z20.828 Contact with and (suspected) exposure to other viral communicable diseases | CPT/HCPCS: 97597 ==

== ENCOUNTER → 2020-03-27 | Outpatient (CLI) | payer MEDICARE, MEDICAID | LOC: WOUNDCARE 12:53 | PROVIDERS: ATTEND Surgery | DX: E11.621 Type 2 diabetes mellitus with foot ulcer (principal); E11.42 Type 2 diabetes mellitus with diabetic polyneuropathy; I96 Gangrene, not elsewhere classified; L97.521 Non-pressure chronic ulcer of other part of left foot limited to breakdown of skin; B35.3 Tinea pedis | CPT/HCPCS: 99212 ==

== ENCOUNTER → 2020-04-03 | Outpatient (CLI) | payer MEDICARE, MEDICAID | LOC: WOUNDCARE 14:13 | PROVIDERS: ATTEND Surgery | DX: E11.621 Type 2 diabetes mellitus with foot ulcer (principal); E11.42 Type 2 diabetes mellitus with diabetic polyneuropathy; E11.52 Type 2 diabetes mellitus with diabetic peripheral angiopathy with gangrene; I96 Gangrene, not elsewhere classified; L97.522 Non-pressure chronic ulcer of other part of left foot with fat layer exposed; B35.3 Tinea pedis | CPT/HCPCS: 11042; G0463 ==

== ENCOUNTER 2020-08-21 14:25 | Emergency (ER) | payer MEDICARE, MEDICAID ==
[~2020-08-21] VITALS: Ht 178 cm; Wt 104.0 kg
[~2020-08-21 14:25] MED LIST changes: -CLIN300C11 PO; +CLIN300C12 PO; -LISI-552 PO; +LISI20TA26 PO
[2020-08-21] MEDS ORDERED: morphine INJ 10 MG/ML 1ML (SYR OR VIAL) IVP STA (14:43)
[2020-08-21] MEDS ORDERED: morphine INJ 10 MG/ML 1ML (SYR OR VIAL) IM STA (15:20)
[2020-08-21 15:24] LABS: BASOPHILS # (AUTO) 0.1 10^3/uL (0.0-0.1); BASOPHILS % (AUTO) 1 % (0-10); EOSINOPHILS # (AUTO) 0.1 10^3/uL (0.0-0.3); EOSINOPHILS % (AUTO) 2 % (0-10); HEMATOCRIT 44 % (40-54); HEMOGLOBIN 14.6 g/dL (13.3-17.7); LYMPHOCYTES # (AUTO) 2.6 X 10^3 (1.0-4.0); LYMPHOCYTES % (AUTO) 33 % (12-44); MEAN CORPUSCULAR HEMOGLOBIN 34 pg (25-34); MEAN CORPUSCULAR HGB CONC 34 g/dL (32-36); MEAN CORPUSCULAR VOLUME 100 fL (80-99); MEAN PLATELET VOLUME 10.9 fL (9.0-12.2); MONOCYTES # (AUTO) 0.7 X 10^3 (0.0-1.0); MONOCYTES % (AUTO) 9 % (0-12); NEUTROPHILS # (AUTO) 4.4 X 10^3 (1.8-7.8); NEUTROPHILS % (AUTO) 55 % (42-75); PLATELET COUNT 148 10^3/uL (130-400); WHITE BLOOD COUNT 7.9 10^3/uL (4.3-11.0)
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
[2020-08-21 15:44] LABS: ALANINE AMINOTRANSFERASE 13 U/L (0-55); ALBUMIN 3.8 GM/DL (3.2-4.5); ALKALINE PHOSPHATASE 84 U/L (40-136); BILIRUBIN,TOTAL 0.3 MG/DL (0.1-1.0); BUN/CREATININE RATIO 11; CALCIUM 9.1 MG/DL (8.5-10.1); CARBON DIOXIDE 19 MMOL/L (21-32); CHLORIDE 99 MMOL/L (98-107); CREATININE SERUM 0.98 MG/DL (0.60-1.30); GFR ESTIMATED > 60; GLUCOSE 151 MG/DL (70-105); POTASSIUM 4.6 MMOL/L (3.6-5.0); SODIUM 129 MMOL/L (135-145); TOTAL PROTEIN 6.9 GM/DL (6.4-8.2)
--- NOTE | 2020-08-21 15:46 | Diagnostic Imaging Report ---
INDICATION: Rothman. AP and lateral views of both hands are obtained. No fracture or acute bony abnormality is seen. There is no destructive bony lesion. There is soft tissue swelling and gas in the 2nd digit on the right side, but no underlying bony abnormality. IMPRESSION: No acute bony abnormality of either hand. No fracture or erosive bony lesion. There is soft tissue gas and soft tissue swelling of the 2nd digit of the right hand without underlying bony abnormality. Dictated by: Dictated on workstation # [id number]
[2020-08-21] MEDS ORDERED: TRIM/SULFAMETH 160/800 (SEPTRA DS) TAB PO ONE (16:15)
[2020-08-21] MEDS ORDERED: SULF1TAB35 PO (16:33)
[2020-08-21] MEDS ORDERED: ACHD5005 PO (16:33)
[2020-08-21 16:48] VITALS: BP 150/69
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
[2020-08-21] MEDS ORDERED: COLLAGENASE 30 GM (SANTYL) TUBE TP SCH (21:00)
== END 2020-08-21 16:48 | disposition home or self-care (01) ==
LOC: EDUNIT# 14:25 → ER 14:27
DX: T23.301A Burn of third degree of right hand, unspecified site, initial encounter (principal); I96 Gangrene, not elsewhere classified; G43.909 Migraine, unspecified, not intractable, without status migrainosus; F31.9 Bipolar disorder, unspecified; F20.9 Schizophrenia, unspecified; F17.210 Nicotine dependence, cigarettes, uncomplicated; Z86.31 Personal history of diabetic foot ulcer; Z88.8 Allergy status to other drugs, medicaments and biological substances; Z91.040 Latex allergy status; Z89.411 Acquired absence of right great toe; Z89.421 Acquired absence of other right toe(s); Z91.5 Personal history of self-harm; X08.8XXA Exposure to other specified smoke, fire and flames, initial encounter
CPT/HCPCS: 36415; 80053; 85025; 86141; 96372

== ENCOUNTER → 2020-11-19 | Outpatient (CLI) | payer MEDICARE, MEDICAID | LOC: WOUNDCARE 13:48 | PROVIDERS: ATTEND Surgery | DX: T23.341A Burn of third degree of multiple right fingers (nail), including thumb, initial encounter (principal); T23.342A Burn of third degree of multiple left fingers (nail), including thumb, initial encounter; E11.621 Type 2 diabetes mellitus with foot ulcer; L97.512 Non-pressure chronic ulcer of other part of right foot with fat layer exposed; E66.01 Morbid (severe) obesity due to excess calories | CPT/HCPCS: A6197; G0463; 99214 ==

== ENCOUNTER → 2020-11-26 | Outpatient (CLI) | payer MEDICARE, MEDICAID | LOC: WOUNDCARE 09:53 | PROVIDERS: ATTEND Surgery | DX: T23.341A Burn of third degree of multiple right fingers (nail), including thumb, initial encounter (principal); T23.342A Burn of third degree of multiple left fingers (nail), including thumb, initial encounter; E11.621 Type 2 diabetes mellitus with foot ulcer; L97.512 Non-pressure chronic ulcer of other part of right foot with fat layer exposed; E66.01 Morbid (severe) obesity due to excess calories; T21.35XA Burn of third degree of buttock, initial encounter; E11.52 Type 2 diabetes mellitus with diabetic peripheral angiopathy with gangrene | CPT/HCPCS: 99215 ==

== ENCOUNTER → 2020-12-04 | Outpatient (CLI) | payer MEDICARE, MEDICAID | LOC: WOUNDCARE 15:07 | PROVIDERS: ATTEND Surgery | DX: T23.341A Burn of third degree of multiple right fingers (nail), including thumb, initial encounter (principal); T23.342A Burn of third degree of multiple left fingers (nail), including thumb, initial encounter; E11.621 Type 2 diabetes mellitus with foot ulcer; L97.512 Non-pressure chronic ulcer of other part of right foot with fat layer exposed; E66.01 Morbid (severe) obesity due to excess calories; T21.35XA Burn of third degree of buttock, initial encounter; E11.52 Type 2 diabetes mellitus with diabetic peripheral angiopathy with gangrene | CPT/HCPCS: A6260; G0463; 99214 ==

== ENCOUNTER 2020-12-10 12:17 | Emergency (ER) | payer MEDICARE, MEDICAID ==
[~2020-12-10] VITALS: Ht 177 cm; Wt 127.0 kg
[2020-12-10] MEDS ORDERED: fentaNYL INJ 100 MCG/2 ML AMP IVP ONE ×2 (13:30→14:30)
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
[2020-12-10 13:45] LABS: BASOPHILS # (AUTO) 0.1 10^3/uL (0.0-0.1); BASOPHILS % (AUTO) 1 % (0-10); EOSINOPHILS # (AUTO) 0.4 10^3/uL (0.0-0.3); EOSINOPHILS % (AUTO) 7 % (0-10); LYMPHOCYTES # (AUTO) 1.6 10^3/uL (1.0-4.0); LYMPHOCYTES % (AUTO) 32 % (12-44); MEAN CORPUSCULAR HEMOGLOBIN 25 pg (25-34); MEAN CORPUSCULAR HGB CONC 29 g/dL (32-36); MEAN CORPUSCULAR VOLUME 88 fL (80-99); MONOCYTES # (AUTO) 0.8 10^3/uL (0.0-1.0); MONOCYTES % (AUTO) 14 % (0-12); NEUTROPHILS # (AUTO) 2.4 10^3/uL (1.8-7.8); NEUTROPHILS % (AUTO) 46 % (42-75); PLATELET COUNT 360 10^3/uL (130-400); WHITE BLOOD COUNT 5.2 10^3/uL (4.3-11.0)
[2020-12-10 13:49] LABS: ALBUMIN 2.8 GM/DL (3.2-4.5)
[2020-12-10 13:50] LABS: HEMATOCRIT 29 % (40-54); HEMOGLOBIN 8.3 g/dL (13.3-17.7); POTASSIUM 4.5 MMOL/L (3.6-5.0)
[2020-12-10 13:51] LABS: CALCIUM 8.5 MG/DL (8.5-10.1)
[2020-12-10 13:52] LABS: TOTAL PROTEIN 5.6 GM/DL (6.4-8.2)
[2020-12-10 13:54] LABS: BILIRUBIN,TOTAL 0.2 MG/DL (0.1-1.0)
[2020-12-10 13:56] LABS: CREATININE SERUM 0.77 MG/DL (0.60-1.30)
[2020-12-10] MEDS ORDERED: FUROSEMIDE 40 MG (LASIX) TAB PO ONE (14:45)
[2020-12-10 15:32] VITALS: BP 127/80
== END 2020-12-10 15:32 | disposition home or self-care (01) ==
LOC: EDUNIT# 12:17 → ER 12:19
DX: R60.9 Edema, unspecified (principal); G89.29 Other chronic pain; I10 Essential (primary) hypertension; F20.9 Schizophrenia, unspecified; F31.9 Bipolar disorder, unspecified; E11.9 Type 2 diabetes mellitus without complications; Z48.00 Encounter for change or removal of nonsurgical wound dressing; Z79.899 Other long term (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
CPT/HCPCS: 36415; 80053; 83880; 85025

== ENCOUNTER 2020-12-11 22:32 | Emergency (ER) | payer MEDICARE, MEDICAID ==
[~2020-12-11] VITALS: Ht 177 cm; Wt 127.0 kg
[2020-12-11] MEDS ORDERED: fentaNYL INJ 100 MCG/2 ML AMP IVP ONE (23:15)
[2020-12-11 23:46] LABS: BASOPHILS # (AUTO) 0.1 10^3/uL (0.0-0.1); BASOPHILS % (AUTO) 1 % (0-10); EOSINOPHILS # (AUTO) 0.4 10^3/uL (0.0-0.3); EOSINOPHILS % (AUTO) 7 % (0-10); HEMATOCRIT 26 % (40-54); HEMOGLOBIN 7.5 g/dL (13.3-17.7); LYMPHOCYTES # (AUTO) 1.5 10^3/uL (1.0-4.0); LYMPHOCYTES % (AUTO) 26 % (12-44); MEAN CORPUSCULAR HEMOGLOBIN 25 pg (25-34); MEAN CORPUSCULAR HGB CONC 29 g/dL (32-36); MEAN CORPUSCULAR VOLUME 86 fL (80-99); MEAN PLATELET VOLUME 10.3 fL (9.0-12.2); MONOCYTES # (AUTO) 0.7 10^3/uL (0.0-1.0); MONOCYTES % (AUTO) 13 % (0-12); NEUTROPHILS % (AUTO) 53 % (42-75); PLATELET COUNT 374 10^3/uL (130-400); WHITE BLOOD COUNT 5.7 10^3/uL (4.3-11.0)
[2020-12-12 00:07] LABS: ALBUMIN 2.3 GM/DL (3.2-4.5); POTASSIUM 3.8 MMOL/L (3.6-5.0)
[2020-12-12 00:08] LABS: CALCIUM 7.6 MG/DL (8.5-10.1)
[2020-12-12 00:10] LABS: TOTAL PROTEIN 4.7 GM/DL (6.4-8.2)
[2020-12-12 00:12] LABS: BILIRUBIN,TOTAL 0.2 MG/DL (0.1-1.0)
[2020-12-12 00:13] LABS: CREATININE SERUM 0.76 MG/DL (0.60-1.30)
[2020-12-12] MEDS ORDERED: cefTRIAXone 1,000 MG in WATER (STERILE) FOR INJECTION 10 ML IV ONE (01:30)
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
[2020-12-12 02:40] LABS: INR 1.4 (0.8-1.4); PROTHROMBIN TIME PATIENT 17.3 SEC (12.2-14.7)
[2020-12-12] MEDS ORDERED: CEFD300C3 PO (03:20)
[2020-12-12] MEDS ORDERED: FURO-125 PO (03:23)
[2020-12-12] MEDS ORDERED: POTA10CA43 PO (03:23)
[2020-12-12 03:32] VITALS: BP 151/82
[2020-12-12] MEDS ORDERED: ENXP30I.3 SQ (16:02)
[2020-12-12] MEDS ORDERED: ENOX100D9 SQ (16:02)
== END 2020-12-12 03:44 | disposition home or self-care (01) ==
LOC: EDUNIT# 22:32 → ER 22:33
DX: R60.0 Localized edema (principal); M79.651 Pain in right thigh; R79.1 Abnormal coagulation profile; I82.403 Acute embolism and thrombosis of unspecified deep veins of lower extremity, bilateral; I10 Essential (primary) hypertension; F20.9 Schizophrenia, unspecified; F31.9 Bipolar disorder, unspecified; E11.9 Type 2 diabetes mellitus without complications; Z79.899 Other long term (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
CPT/HCPCS: 36415; 80053; 82947; 83880; 85025; 85379; 85610; 86141

== ENCOUNTER → 2020-12-12 | Outpatient (CLI) | payer MEDICARE, MEDICAID ==
[~2020-12-12] MED LIST changes: +CEFD300C3 PO; +ENOX100D9 SQ; +ENXP30I.3 SQ; +FURO-125 PO; +POTA10CA43 PO
--- NOTE | 2020-12-12 14:37 | Diagnostic Imaging Report ---
PROCEDURE: US Venous Lower Ext Gideon. TECHNIQUE: Multiple real-time grayscale images were obtained over the lower extremities in various projections, bilaterally. Additional duplex Doppler and color Doppler images were also obtained. INDICATION: Pain and swelling. FINDINGS: There is deep venous thrombosis in the left and right peroneal veins. There is deep venous thrombosis in the left femoral vein beginning at the mid level extending distally. Examination is otherwise difficult due to body habitus. The remainder of the venous system is patent. There are no abnormal fluid collections or masses IMPRESSION: Positive for deep venous thrombosis bilaterally as described. Dictated by: Dictated on workstation # [id number]
== END ==
LOC: RAD 13:15
PROVIDERS: ATTEND Family Medicine
DX: I82.453 Acute embolism and thrombosis of peroneal vein, bilateral (principal); I82.413 Acute embolism and thrombosis of femoral vein, bilateral; R79.1 Abnormal coagulation profile
CPT/HCPCS: 93970

== ENCOUNTER → 2020-12-18 | Outpatient (CLI) | payer MEDICARE, MEDICAID ==
[~2020-12-18] MED LIST changes: +ACET325T38 PO; +ASCO500T7 PO; +BACI1PAC28 TP; +CALC300T4 PO; +CELE200C PO; +CLON1TAB13 PO; +DIPH25TA65 PO; +DULO30CA3 PO; +ESCI5TAB PO; +FENT1PAT10 TD; +FURO20TA4 PO; +GABA-490 PO; +INSU100I23 SQ; +INSU100V6 SQ; +IRON150C3 PO; +METO100T12 PO; +MULT15TA3 PO; +NF-SKEL800 PO; +OLAN10TA71 PO; +OLAN15TA3 PO; +ONDA4TAB11 PO; +OXYC-556 PO; +POLY119P5 PO; +POTA10TA36 PO; +RIVA15TA PO; +RIVA20TA2 PO; +SILV20CR14 TP; +SPIR25TA5 PO; +SPIR50TA4 PO; +ZINC220T4 PO; +[UNRECOGNIZED DRUG - CODE] PO
== END ==
LOC: WOUNDCARE 14:47
PROVIDERS: ATTEND Surgery
DX: T23.341A Burn of third degree of multiple right fingers (nail), including thumb, initial encounter (principal); T23.342A Burn of third degree of multiple left fingers (nail), including thumb, initial encounter; E11.621 Type 2 diabetes mellitus with foot ulcer; L97.512 Non-pressure chronic ulcer of other part of right foot with fat layer exposed; E66.01 Morbid (severe) obesity due to excess calories; T21.35XA Burn of third degree of buttock, initial encounter; E11.52 Type 2 diabetes mellitus with diabetic peripheral angiopathy with gangrene
CPT/HCPCS: 99214

== ENCOUNTER 2020-12-22 04:45 | Inpatient (IN) | payer MEDICARE, MEDICAID ==
[~2020-12-22] VITALS: Ht 177 cm; Wt 112.7 kg
[~2020-12-22 04:45] MED LIST changes: -ACET325T38 PO; -ASCO500T7 PO; -BACI1PAC28 TP; -CALC300T4 PO; -CELE200C PO; -CLON1TAB13 PO; -DIPH25TA65 PO; -DULO30CA3 PO; -ESCI5TAB PO; -FENT1PAT10 TD; -FURO20TA4 PO; -GABA-490 PO; -INSU100I23 SQ; -INSU100V6 SQ; -IRON150C3 PO; -METO100T12 PO; -MULT15TA3 PO; -NF-SKEL800 PO; -OLAN10TA71 PO; -OLAN15TA3 PO; -ONDA4TAB11 PO; -OXYC-556 PO; -POLY119P5 PO; -POTA10TA36 PO; -RIVA15TA PO; -RIVA20TA2 PO; -SILV20CR14 TP; -SPIR25TA5 PO; -SPIR50TA4 PO; -ZINC220T4 PO; -[UNRECOGNIZED DRUG - CODE] PO
[2020-12-22 05:10] LABS: BILIRUBIN,URINE NEGATIVE (NEGATIVE); CLARITY,URINE CLEAR; COLOR,URINE YELLOW; GLUCOSE, URINE (UA) NEGATIVE (NEGATIVE); KETONES,URINE NEGATIVE (NEGATIVE); LEUKOCYTE ESTERASE ,URINE NEGATIVE (NEGATIVE); NITRITE,URINE NEGATIVE (NEGATIVE); PH,URINE 6.5 (5-9); PROTEIN,URINE NEGATIVE (NEGATIVE)
[2020-12-22 05:22] LABS: AMPHETAMINE SCREEN, URINE NEGATIVE (NEGATIVE); BARBITURATE SCREEN URINE NEGATIVE (NEGATIVE); BENZODIAZEPINES SCREEN URINE NEGATIVE (NEGATIVE); CANNABINOID SCREEN, URINE NEGATIVE (NEGATIVE); COCAINE SCREEN URINE NEGATIVE (NEGATIVE); METHADONE STAT NEGATIVE (NEGATIVE); METHAMPHETAMINE SCREEN URINE S NEGATIVE (NEGATIVE); OPIATE SCREEN URINE NEGATIVE (NEGATIVE); OXYCODONE STAT POSITIVE (NEGATIVE); PROPOXYPHENE STAT NEGATIVE (NEGATIVE); TRICYCLIC ANTIDEPRESSANTS SCRE NEGATIVE (NEGATIVE)
[2020-12-22 05:24] LABS: BACTERIA,URINE TRACE /HPF
[2020-12-22 05:48] LABS: BASOPHILS # (AUTO) 0.1 10^3/uL (0.0-0.1); BASOPHILS % (AUTO) 1 % (0-10); EOSINOPHILS % (AUTO) 0 % (0-10); HEMATOCRIT 32 % (40-54); LYMPHOCYTES # (AUTO) 1.3 10^3/uL (1.0-4.0); LYMPHOCYTES % (AUTO) 17 % (12-44); MEAN CORPUSCULAR HEMOGLOBIN 24 pg (25-34); MEAN CORPUSCULAR HGB CONC 29 g/dL (32-36); MEAN CORPUSCULAR VOLUME 85 fL (80-99); MEAN PLATELET VOLUME 9.6 fL (9.0-12.2); MONOCYTES # (AUTO) 0.8 10^3/uL (0.0-1.0); MONOCYTES % (AUTO) 11 % (0-12); NEUTROPHILS # (AUTO) 5.3 10^3/uL (1.8-7.8); NEUTROPHILS % (AUTO) 70 % (42-75); PLATELET COUNT 462 10^3/uL (130-400); WHITE BLOOD COUNT 7.5 10^3/uL (4.3-11.0)
[2020-12-22 05:59] LABS: INR 1.6 (0.8-1.4); PROTHROMBIN TIME PATIENT 19.6 SEC (12.2-14.7)
[2020-12-22] MEDS ORDERED: FUROSEMIDE 40 MG/4 ML INJ (LASIX) IVP ONE (06:00)
[2020-12-22] MEDS ORDERED: NITROGLYCERIN 2% OINT 1 GM UNIT DOSE PACKET TOP ONE (06:00)
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
[2020-12-22] MEDS ORDERED: morphine INJ 10 MG/ML 1ML (SYR OR VIAL) IVP STA (06:06)
[2020-12-22 06:07] LABS: ALANINE AMINOTRANSFERASE 8 U/L (0-55); ALBUMIN 3.1 GM/DL (3.2-4.5); ALKALINE PHOSPHATASE 125 U/L (40-136); BILIRUBIN,TOTAL 0.4 MG/DL (0.1-1.0); BUN/CREATININE RATIO 6; CALCIUM 9.2 MG/DL (8.5-10.1); CARBON DIOXIDE 25 MMOL/L (21-32); CHLORIDE 105 MMOL/L (98-107); CREATINE KINASE 27 U/L (30-200); CREATININE SERUM 0.71 MG/DL (0.60-1.30); GFR ESTIMATED 119; GLUCOSE 146 MG/DL (70-105); MAGNESIUM 1.7 MG/DL (1.6-2.4); SODIUM 140 MMOL/L (135-145); TOTAL PROTEIN 6.2 GM/DL (6.4-8.2)
[2020-12-22] MEDS ORDERED: RT-ALBUTEROL/IPRATROPIUM 3 ML (DUONEB) VIAL INH ONE (06:15)
[2020-12-22 06:21] LABS: CREATINE KINASE MB 1.1 NG/ML (<6.6)
--- NOTE | 2020-12-22 06:44 | Diagnostic Imaging Report ---
Clinical indications: Patient with fever and dyspnea. Exam: Portable chest x-ray upright view. Comparisons: Chest x-ray dated 11/30/2019. Findings: Lungs/pleura: There is interval development of patchy lung infiltrates throughout both lungs. There is no pneumothorax. There is no pleural effusion. Mediastinum: Unremarkable. Pulmonary vasculature: Unremarkable. Heart: There is cardiomegaly. Bones/extrathoracic soft tissue: Unremarkable. Impression: 1: There is interval development of diffuse bilateral lung infiltrates concerning for pneumonia. 2: There is cardiomegaly with no significant pulmonary vascular congestion. Dictated by: Dictated on workstation # [id number]
[2020-12-22] MEDS ORDERED: oxyCODONE/APAP 10/325MG (PERCOCET 10) TABLET PO ONE (08:00)
[2020-12-22] MEDS ORDERED: oxyCODONE/APAP 5/325MG (PERCOCET 5) TABLET ONE (08:23)
[2020-12-22] MEDS ORDERED: morphine INJ 4 MG/ML 1 ML (VIAL/SYRINGE) ONE (08:56)
[2020-12-22 09:21] VITALS: BP 190/97
[2020-12-22] MEDS ORDERED: cefTRIAXone 1,000 MG/SWFI 10 ML IV PUSH IV SCH ×2 (09:30)
[2020-12-22] MEDS ORDERED: morphine INJ 4 MG/ML 1 ML (VIAL/SYRINGE) IV PRN (09:45)
[2020-12-22] MEDS ORDERED: oxyCODONE/APAP 10/325MG (PERCOCET 10) TABLET PO PRN (09:45)
[2020-12-22] MEDS: clonazePAM 1 MG (KlonoPIN) TAB PO SCH ×2 (10:41→20:28)
[2020-12-22] MEDS: DIVALPROEX 500 MG DELAYED RELEASE (DEPAKOTE) TAB PO SCH ×2 (10:41→20:28)
[2020-12-22] MEDS: meTOprolol TARTRATE 50 MG (LOPRESSOR) TAB PO SCH ×2 (10:42→20:28)
[2020-12-22] MEDS: GABAPENTIN 300 MG (NEURONTIN) CAP PO SCH ×2 (10:42→20:28)
[2020-12-22] MEDS: RIVAROXABAN 20 MG TABLET (XARELTO) PO SCH (10:42)
[2020-12-22] MEDS: inSUlin ASPART (NovoLOG) 1 UNIT/0.01 ML (CHARGE PER UNIT) SC SCH ×3 (10:43→19:52)
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
[2020-12-22] MEDS ORDERED: lisINopril 20 MG (PRINIVIL) TABLET PO NR (12:30)
[2020-12-22] MEDS: oxyCODONE/APAP 10/325MG (PERCOCET 10) TABLET PO PRN ×3 (12:57→23:59)
[2020-12-22] MEDS: AZITHROMYCIN INJECTION 500 MG in NS (IVPB) 250 ML IV SCH (12:58)
[2020-12-22] MEDS: CEFEPIME INJECTION 1,000 MG in WATER (STERILE) FOR INJECTION 10 ML IV SCH ×3 (12:58→23:59)
[2020-12-22] MEDS: RT-ALBUTEROL/IPRATROPIUM 3 ML (DUONEB) VIAL INH SCH ×3 (14:58→22:05)
[2020-12-22 16:00] VITALS: BP 138/74
[2020-12-22] MEDS: HYDROmorphone 2 MG/ML VIAL (DILAUDID) IV PRN ×2 (16:54→21:08)
[2020-12-22] MEDS ORDERED: FUROSEMIDE 40 MG/4 ML INJ (LASIX) IV SCH (17:00)
[2020-12-22] MEDS: KCL 20 MEQ TAB (K-DUR) PO SCH (18:19)
[2020-12-22 19:15] VITALS: BP 138/80
[2020-12-22 19:30] VITALS: BP 99/62
[2020-12-23 00:16] VITALS: BP 159/86
[2020-12-23] MEDS: RT-ALBUTEROL/IPRATROPIUM 3 ML (DUONEB) VIAL INH SCH ×5 (02:05→22:29)
[2020-12-23] MEDS: HYDROmorphone 2 MG/ML VIAL (DILAUDID) IV PRN ×4 (03:33→23:00)
[2020-12-23 04:20] VITALS: BP 157/85
[2020-12-23 05:06] LABS: BASOPHILS # (AUTO) 0.1 10^3/uL (0.0-0.1); BASOPHILS % (AUTO) 2 % (0-10); EOSINOPHILS # (AUTO) 0.3 10^3/uL (0.0-0.3); EOSINOPHILS % (AUTO) 5 % (0-10); HEMATOCRIT 29 % (40-54); HEMOGLOBIN 8.1 g/dL (13.3-17.7); LYMPHOCYTES # (AUTO) 1.9 10^3/uL (1.0-4.0); LYMPHOCYTES % (AUTO) 37 % (12-44); MEAN CORPUSCULAR HEMOGLOBIN 24 pg (25-34); MEAN CORPUSCULAR HGB CONC 28 g/dL (32-36); MEAN CORPUSCULAR VOLUME 87 fL (80-99); MONOCYTES # (AUTO) 0.8 10^3/uL (0.0-1.0); MONOCYTES % (AUTO) 15 % (0-12); NEUTROPHILS # (AUTO) 2.2 10^3/uL (1.8-7.8); NEUTROPHILS % (AUTO) 42 % (42-75); PLATELET COUNT 376 10^3/uL (130-400); WHITE BLOOD COUNT 5.2 10^3/uL (4.3-11.0)
[2020-12-23 05:14] LABS: ALBUMIN 2.7 GM/DL (3.2-4.5)
[2020-12-23 05:15] LABS: POTASSIUM 4.1 MMOL/L (3.6-5.0)
[2020-12-23 05:16] LABS: CALCIUM 8.4 MG/DL (8.5-10.1)
[2020-12-23 05:17] LABS: TOTAL PROTEIN 5.2 GM/DL (6.4-8.2)
[2020-12-23 05:19] LABS: BILIRUBIN,TOTAL 0.3 MG/DL (0.1-1.0)
[2020-12-23 05:21] LABS: CREATININE SERUM 0.67 MG/DL (0.60-1.30)
[2020-12-23] MEDS: CEFEPIME INJECTION 1,000 MG in WATER (STERILE) FOR INJECTION 10 ML IV SCH ×4 (06:13→23:00)
[2020-12-23] MEDS: oxyCODONE/APAP 10/325MG (PERCOCET 10) TABLET PO PRN ×3 (06:13→20:51)
[2020-12-23] MEDS: inSUlin ASPART (NovoLOG) 1 UNIT/0.01 ML (CHARGE PER UNIT) SC SCH ×4 (06:14→20:36)
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
[2020-12-23 08:07] VITALS: BP 162/89
[2020-12-23] MEDS: DULoxetine 30 MG (CYMBALTA) CAP PO SCH (09:17)
[2020-12-23] MEDS: clonazePAM 1 MG (KlonoPIN) TAB PO SCH ×2 (09:17→20:52)
[2020-12-23] MEDS: DIVALPROEX 500 MG DELAYED RELEASE (DEPAKOTE) TAB PO SCH ×2 (09:17→20:51)
[2020-12-23] MEDS: lisINopril 20 MG (PRINIVIL) TABLET PO SCH (09:18)
[2020-12-23] MEDS: RIVAROXABAN 20 MG TABLET (XARELTO) PO SCH (09:18)
[2020-12-23] MEDS: KCL 20 MEQ TAB (K-DUR) PO SCH ×2 (09:18→18:23)
[2020-12-23] MEDS: meTOprolol TARTRATE 50 MG (LOPRESSOR) TAB PO SCH ×2 (09:18→20:52)
[2020-12-23] MEDS: GABAPENTIN 300 MG (NEURONTIN) CAP PO SCH ×2 (09:18→20:52)
[2020-12-23 12:02] VITALS: BP 150/84
[2020-12-23] MEDS: NICOTINE 14 MG (NICODERM) PATCH TD SCH (12:59)
[2020-12-23] MEDS: AZITHROMYCIN INJECTION 500 MG in NS (IVPB) 250 ML IV SCH (12:59)
[2020-12-23 16:00] VITALS: BP 115/65
[2020-12-23 19:47] VITALS: BP 160/93
[2020-12-24] VITALS: BP 176/99
[2020-12-24] MEDS: oxyCODONE/APAP 10/325MG (PERCOCET 10) TABLET PO PRN ×4 (01:21→16:04)
[2020-12-24] MEDS: RT-ALBUTEROL/IPRATROPIUM 3 ML (DUONEB) VIAL INH SCH ×3 (03:01→11:12)
[2020-12-24] MEDS: HYDROmorphone 2 MG/ML VIAL (DILAUDID) IV PRN ×2 (03:03→07:31)
[2020-12-24 04:14] VITALS: BP 146/75
[2020-12-24] MEDS: inSUlin ASPART (NovoLOG) 1 UNIT/0.01 ML (CHARGE PER UNIT) SC SCH ×3 (05:39→16:00)
[2020-12-24] MEDS: CEFEPIME INJECTION 1,000 MG in WATER (STERILE) FOR INJECTION 10 ML IV SCH ×2 (05:53→12:14)
[2020-12-24 07:28] LABS: BASOPHILS # (AUTO) 0.1 10^3/uL (0.0-0.1); BASOPHILS % (AUTO) 2 % (0-10); EOSINOPHILS # (AUTO) 0.5 10^3/uL (0.0-0.3); EOSINOPHILS % (AUTO) 7 % (0-10); HEMATOCRIT 31 % (40-54); HEMOGLOBIN 8.7 g/dL (13.3-17.7); LYMPHOCYTES # (AUTO) 2.4 10^3/uL (1.0-4.0); LYMPHOCYTES % (AUTO) 37 % (12-44); MEAN CORPUSCULAR HEMOGLOBIN 25 pg (25-34); MEAN CORPUSCULAR HGB CONC 28 g/dL (32-36); MEAN CORPUSCULAR VOLUME 89 fL (80-99); MEAN PLATELET VOLUME 9.4 fL (9.0-12.2); MONOCYTES # (AUTO) 0.8 10^3/uL (0.0-1.0); MONOCYTES % (AUTO) 12 % (0-12); NEUTROPHILS # (AUTO) 2.7 10^3/uL (1.8-7.8); NEUTROPHILS % (AUTO) 42 % (42-75); PLATELET COUNT 399 10^3/uL (130-400); WHITE BLOOD COUNT 6.5 10^3/uL (4.3-11.0)
[2020-12-24 07:33] LABS: ALBUMIN 2.8 GM/DL (3.2-4.5); CHLORIDE 104 MMOL/L (98-107); POTASSIUM 4.6 MMOL/L (3.6-5.0); SODIUM 136 MMOL/L (135-145)
[2020-12-24 07:35] LABS: GLUCOSE 111 MG/DL (70-105)
[2020-12-24 07:36] LABS: TOTAL PROTEIN 5.5 GM/DL (6.4-8.2)
[2020-12-24 07:37] LABS: BILIRUBIN,TOTAL 0.2 MG/DL (0.1-1.0); CARBON DIOXIDE 24 MMOL/L (21-32)
[2020-12-24 07:39] LABS: ALKALINE PHOSPHATASE 87 U/L (40-136); GFR ESTIMATED 121
[2020-12-24 07:40] LABS: BUN/CREATININE RATIO 11
[2020-12-24 07:42] LABS: ALANINE AMINOTRANSFERASE < 6 U/L (0-55)
[2020-12-24 07:54] VITALS: BP 155/79
[2020-12-24] MEDS: NICOTINE 14 MG (NICODERM) PATCH TD SCH (08:20)
[2020-12-24] MEDS: GABAPENTIN 300 MG (NEURONTIN) CAP PO SCH (08:24)
[2020-12-24] MEDS: KCL 20 MEQ TAB (K-DUR) PO SCH (08:25)
[2020-12-24] MEDS: DIVALPROEX 500 MG DELAYED RELEASE (DEPAKOTE) TAB PO SCH (08:25)
[2020-12-24] MEDS: clonazePAM 1 MG (KlonoPIN) TAB PO SCH (08:25)
[2020-12-24] MEDS: meTOprolol TARTRATE 50 MG (LOPRESSOR) TAB PO SCH (08:25)
[2020-12-24] MEDS: DULoxetine 30 MG (CYMBALTA) CAP PO SCH (08:25)
[2020-12-24] MEDS: RIVAROXABAN 20 MG TABLET (XARELTO) PO SCH (08:25)
[2020-12-24] MEDS: lisINopril 20 MG (PRINIVIL) TABLET PO SCH (08:25)
[2020-12-24] MEDS ORDERED: NICOTINE PATCH REMOVAL TP SCH (08:59)
[2020-12-24] MEDS ORDERED: AZITHROMYCIN 250 MG TAB (ZITHROMAX) PO SCH (09:00)
[2020-12-24] MEDS ORDERED: INSU100V6 SQ ×2 (11:43→16:06)
[2020-12-24] MEDS ORDERED: POLY119P5 PO (11:43)
[2020-12-24] MEDS ORDERED: FENT1PAT10 TD (11:43)
[2020-12-24] MEDS ORDERED: FURO20TA4 PO ×2 (11:43→16:06)
[2020-12-24] MEDS ORDERED: OLAN15TA3 PO (11:43)
[2020-12-24] MEDS ORDERED: ONDA4TAB11 PO (11:43)
[2020-12-24] MEDS ORDERED: CALC300T4 PO (11:43)
[2020-12-24] MEDS ORDERED: SILV20CR14 TP ×2 (11:43→16:06)
[2020-12-24] MEDS ORDERED: [UNRECOGNIZED DRUG - CODE] PO ×2 (11:43→16:06)
[2020-12-24] MEDS ORDERED: NF-SKEL800 PO ×2 (11:43→16:06)
[2020-12-24] MEDS ORDERED: POTA10TA36 PO ×2 (11:43→16:06)
[2020-12-24] MEDS ORDERED: OLAN10TA71 PO ×2 (11:43→16:06)
[2020-12-24] MEDS ORDERED: BACI1PAC28 TP (11:43)
[2020-12-24] MEDS ORDERED: GABA-490 PO ×2 (11:43→16:06)
[2020-12-24] MEDS ORDERED: ACET325T38 PO (11:43)
[2020-12-24] MEDS ORDERED: ESCI5TAB PO (11:43)
[2020-12-24] MEDS ORDERED: MULT15TA3 PO ×2 (11:43→16:06)
[2020-12-24] MEDS ORDERED: IRON150C3 PO (11:43)
[2020-12-24] MEDS ORDERED: ASCO500T7 PO ×2 (11:43→16:06)
[2020-12-24] MEDS ORDERED: OXYC-556 PO (11:43)
[2020-12-24] MEDS ORDERED: INSU100I23 SQ ×2 (11:43→16:06)
[2020-12-24] MEDS ORDERED: CLON1TAB13 PO (11:43)
[2020-12-24] MEDS ORDERED: RIVA15TA PO (11:43)
[2020-12-24] MEDS ORDERED: METO100T12 PO ×2 (11:43→16:06)
[2020-12-24] MEDS ORDERED: CELE200C PO ×2 (11:43→16:06)
[2020-12-24] MEDS ORDERED: DIPH25TA65 PO (11:43)
[2020-12-24] MEDS ORDERED: SPIR50TA4 PO (11:43)
[2020-12-24] MEDS ORDERED: SPIR25TA5 PO (12:03)
[2020-12-24] MEDS ORDERED: ZINC220T4 PO ×2 (12:03→16:06)
[2020-12-24 12:27] VITALS: BP 189/97
[2020-12-24] MEDS ORDERED: LISI20TA26 PO (16:06)
[2020-12-24] MEDS ORDERED: RIVA20TA2 PO (16:06)
[2020-12-24] MEDS ORDERED: DULO30CA3 PO (16:06)
[2020-12-24] MEDS ORDERED: CEFD300C3 PO (16:06)
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
== END 2020-12-24 16:56 | disposition home health service (06) | DRG 194 ==
LOC: EDUNIT# 04:45 → ER 04:46 → CSD 06:15 → 4TH 14:08 → OBSVTOIN 12-24 11:00
PROVIDERS: ADMIT Internal Medicine; ATTEND Family Medicine
DX: J18.9 Pneumonia, unspecified organism (principal); N39.0 Urinary tract infection, site not specified; I10 Essential (primary) hypertension; E87.70 Fluid overload, unspecified; F15.90 Other stimulant use, unspecified, uncomplicated; F12.90 Cannabis use, unspecified, uncomplicated; E11.42 Type 2 diabetes mellitus with diabetic polyneuropathy; Z79.4 Long term (current) use of insulin; Z20.822 Contact with and (suspected) exposure to COVID-19; F41.9 Anxiety disorder, unspecified; F31.9 Bipolar disorder, unspecified; F20.9 Schizophrenia, unspecified; G89.29 Other chronic pain
CPT/HCPCS: 36415; 71045; 80053; 80306; 80320; 81000; 82550; 82553; 82947; 83036; 83605; 83735; 83880; 84145; 84484; 85025; 85610; 85730; 87040; 87636; 93005; 93041; 93306; 94640; 94664; 94760

== ENCOUNTER → 2020-12-25 | Outpatient (CLI) | payer MEDICARE, MEDICAID ==
[~2020-12-25] MED LIST changes: +ACET325T38 PO; +ASCO500T7 PO; +BACI1PAC28 TP; +CALC300T4 PO; +CELE200C PO; +CLON1TAB13 PO; +DIPH25TA65 PO; +DULO30CA3 PO; +ESCI5TAB PO; +FENT1PAT10 TD; +FURO20TA4 PO; +GABA-490 PO; +INSU100I23 SQ; +INSU100V6 SQ; +IRON150C3 PO; +METO100T12 PO; +MULT15TA3 PO; +NF-SKEL800 PO; +OLAN10TA71 PO; +OLAN15TA3 PO; +ONDA4TAB11 PO; +OXYC-556 PO; +POLY119P5 PO; +POTA10TA36 PO; +RIVA15TA PO; +RIVA20TA2 PO; +SILV20CR14 TP; +SPIR25TA5 PO; +SPIR50TA4 PO; +ZINC220T4 PO; +[UNRECOGNIZED DRUG - CODE] PO
== END ==
LOC: WOUNDCARE 14:52
PROVIDERS: ATTEND Surgery
DX: T23.341A Burn of third degree of multiple right fingers (nail), including thumb, initial encounter (principal); T23.342A Burn of third degree of multiple left fingers (nail), including thumb, initial encounter; E11.622 Type 2 diabetes mellitus with other skin ulcer; L97.512 Non-pressure chronic ulcer of other part of right foot with fat layer exposed; E66.01 Morbid (severe) obesity due to excess calories; T21.35XA Burn of third degree of buttock, initial encounter; E11.52 Type 2 diabetes mellitus with diabetic peripheral angiopathy with gangrene
CPT/HCPCS: 99214

== ENCOUNTER → 2021-01-01 | Outpatient (CLI) | payer MEDICARE, MEDICAID | LOC: WOUNDCARE 14:56 | PROVIDERS: ATTEND Surgery | DX: T23.341A Burn of third degree of multiple right fingers (nail), including thumb, initial encounter (principal); T23.342A Burn of third degree of multiple left fingers (nail), including thumb, initial encounter; T21.35XA Burn of third degree of buttock, initial encounter; L92.8 Other granulomatous disorders of the skin and subcutaneous tissue; I96 Gangrene, not elsewhere classified; E11.621 Type 2 diabetes mellitus with foot ulcer; L97.512 Non-pressure chronic ulcer of other part of right foot with fat layer exposed; E66.01 Morbid (severe) obesity due to excess calories | CPT/HCPCS: 17250; G0463 ==

== ENCOUNTER → 2021-01-08 | Outpatient (CLI) | payer MEDICARE, MEDICAID | LOC: WOUNDCARE 14:52 | PROVIDERS: ATTEND Surgery | DX: L92.8 Other granulomatous disorders of the skin and subcutaneous tissue (principal); T23.341A Burn of third degree of multiple right fingers (nail), including thumb, initial encounter; T23.342A Burn of third degree of multiple left fingers (nail), including thumb, initial encounter; E11.621 Type 2 diabetes mellitus with foot ulcer; L97.512 Non-pressure chronic ulcer of other part of right foot with fat layer exposed; E66.01 Morbid (severe) obesity due to excess calories; T21.35XA Burn of third degree of buttock, initial encounter; E11.52 Type 2 diabetes mellitus with diabetic peripheral angiopathy with gangrene | CPT/HCPCS: A6212; G0463; 99215 ==

== ENCOUNTER → 2021-01-22 | Outpatient (CLI) | payer MEDICARE, MEDICAID | LOC: WOUNDCARE 14:41 | PROVIDERS: ATTEND Surgery | DX: T23.341A Burn of third degree of multiple right fingers (nail), including thumb, initial encounter (principal); I96 Gangrene, not elsewhere classified; T23.342A Burn of third degree of multiple left fingers (nail), including thumb, initial encounter; T21.35XA Burn of third degree of buttock, initial encounter; L92.8 Other granulomatous disorders of the skin and subcutaneous tissue; E11.621 Type 2 diabetes mellitus with foot ulcer; L97.512 Non-pressure chronic ulcer of other part of right foot with fat layer exposed; E66.01 Morbid (severe) obesity due to excess calories | CPT/HCPCS: 99214 ==

== ENCOUNTER → 2021-02-05 | Outpatient (CLI) | payer MEDICARE, MEDICAID | LOC: WOUNDCARE 14:56 | PROVIDERS: ATTEND Surgery | DX: T21.35XA Burn of third degree of buttock, initial encounter (principal); T23.341A Burn of third degree of multiple right fingers (nail), including thumb, initial encounter; T23.342A Burn of third degree of multiple left fingers (nail), including thumb, initial encounter; I96 Gangrene, not elsewhere classified; E66.01 Morbid (severe) obesity due to excess calories; L92.8 Other granulomatous disorders of the skin and subcutaneous tissue | CPT/HCPCS: 99214 ==

== ENCOUNTER → 2021-02-12 | Outpatient (CLI) | payer MEDICARE, MEDICAID ==
[~2021-02-12] MED LIST changes: +ASCO-262 PO; +CELE-63 PO; +LNZ600T PO; +META800T PO; +MULT-1136 PO; +RIVA20TA PO; +ZINC50TA58 PO
== END ==
LOC: WOUNDCARE 14:52
PROVIDERS: ATTEND Surgery
DX: L02.415 Cutaneous abscess of right lower limb (principal); L97.512 Non-pressure chronic ulcer of other part of right foot with fat layer exposed; E11.621 Type 2 diabetes mellitus with foot ulcer; T23.341A Burn of third degree of multiple right fingers (nail), including thumb, initial encounter; T23.342A Burn of third degree of multiple left fingers (nail), including thumb, initial encounter; E66.01 Morbid (severe) obesity due to excess calories; T21.35XA Burn of third degree of buttock, initial encounter; E11.52 Type 2 diabetes mellitus with diabetic peripheral angiopathy with gangrene
CPT/HCPCS: 99214

== ENCOUNTER 2021-02-13 07:56 | Inpatient (IN) | payer MEDICARE, MEDICAID ==
[~2021-02-13] VITALS: Ht 177.8 cm; Wt 117.2 kg
[~2021-02-13 07:56] MED LIST changes: -ASCO-262 PO; -CELE-63 PO; -LNZ600T PO; -META800T PO; -MULT-1136 PO; -RIVA20TA PO; -ZINC50TA58 PO
[2021-02-13] MEDS ORDERED: RT-ALBUTEROL HFA 8.5 GM INHALER IH STA (08:17)
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
[2021-02-13] MEDS ORDERED: fentaNYL INJ 100 MCG/2 ML AMP IVP ONE ×2 (08:30→13:15)
[2021-02-13 09:23] LABS: BASOPHILS % (AUTO) 1 % (0-10); EOSINOPHILS # (AUTO) 0.2 10^3/uL (0.0-0.3); EOSINOPHILS % (AUTO) 3 % (0-10); HEMATOCRIT 32 % (40-54); HEMOGLOBIN 10.1 g/dL (13.3-17.7); LYMPHOCYTES # (AUTO) 1.9 10^3/uL (1.0-4.0); LYMPHOCYTES % (AUTO) 30 % (12-44); MEAN CORPUSCULAR HEMOGLOBIN 27 pg (25-34); MEAN CORPUSCULAR HGB CONC 32 g/dL (32-36); MEAN CORPUSCULAR VOLUME 86 fL (80-99); MEAN PLATELET VOLUME 9.4 fL (9.0-12.2); MONOCYTES # (AUTO) 0.8 10^3/uL (0.0-1.0); MONOCYTES % (AUTO) 13 % (0-12); NEUTROPHILS # (AUTO) 3.2 10^3/uL (1.8-7.8); NEUTROPHILS % (AUTO) 53 % (42-75); PLATELET COUNT 287 10^3/uL (130-400); WHITE BLOOD COUNT 6.2 10^3/uL (4.3-11.0)
--- NOTE | 2021-02-13 09:24 | Diagnostic Imaging Report ---
EXAMINATION: Chest 1 view HISTORY: sepsis COMPARISON: 12/22/2020 FINDINGS: Heart size and pulmonary vasculature are normal. There are patchy airspace opacities seen within the bilateral lower lungs. No pleural effusion or pneumothorax. Multiple age indeterminate mildly displaced fractures of the posterior left upper ribs. IMPRESSION: 1. Patchy airspace opacities within the lung bases which could represent atelectasis or pneumonia. Dictated by: Dictated on workstation # [id number]
--- NOTE | 2021-02-13 09:24 | Diagnostic Imaging Report ---
INDICATION: Foot ulcer, amputation. Comparison: 08/22/2019 Findings: 3 views of the right foot demonstrate multiple chronic amputations. There is no acute fracture, dislocation or osteomyelitis. No soft tissue gas or foreign body seen. Advanced degenerative changes seen involving the visualized ankle mortise. IMPRESSION: Chronic amputations. No underlying radiographic evidence of osteomyelitis or fracture. Dictated by: Dictated on workstation # [id number]
[2021-02-13 09:48] LABS: ALBUMIN 3.4 GM/DL (3.2-4.5); POTASSIUM 4.6 MMOL/L (3.6-5.0)
[2021-02-13 09:49] LABS: CALCIUM 8.7 MG/DL (8.5-10.1)
[2021-02-13 09:50] LABS: INR 2.2 (0.8-1.4); TOTAL PROTEIN 5.8 GM/DL (6.4-8.2)
[2021-02-13 09:52] LABS: BILIRUBIN,TOTAL 0.2 MG/DL (0.1-1.0)
[2021-02-13 09:54] LABS: CREATININE SERUM 0.61 MG/DL (0.60-1.30)
[2021-02-13 10:24] LABS: ERYTHROCYTE SEDIMENTATION RATE 30 MM/HR (0-15)
[2021-02-13] MEDS ORDERED: VANCOMYCIN INJECTION 1,000 MG in NS (IVPB) 250 ML IV ONE (12:00)
[2021-02-13] MEDS ORDERED: PIPERACILLIN SODIUM/TAZOBACTAM 4.5 GM in NS (IVPB) 100 ML IV ONE (12:00)
[2021-02-13] MEDS ORDERED: NICOTINE 21 MG (NICODERM) PATCH TD ONE (13:15)
[2021-02-13] MEDS ORDERED: CATHETER FLUSH 10 ML SYR IV PRN (15:45)
[2021-02-13 16:00] VITALS: BP 146/86
[2021-02-13] MEDS ORDERED: VANCOMYCIN 1500 MG/NS 500 ML IVPB IV NR ×2 (16:00)
[2021-02-13] MEDS: HYDROcodone/APAP 7.5 MG/325 MG (LORTAB, LORCET PLUS) TABLET PO PRN ×2 (16:07→21:01)
[2021-02-13] MEDS: NS IV 1000 ML 1,000 ML IV SCH (16:08)
[2021-02-13 16:21] VITALS: BP 137/74
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
[2021-02-13] MEDS ORDERED: RT-ALBUTEROL/IPRATROPIUM 3 ML (DUONEB) VIAL INH PRN (17:00)
[2021-02-13] MEDS: inSUlin ASPART (NovoLOG) 1 UNIT/0.01 ML (CHARGE PER UNIT) SC SCH ×2 (17:03→21:01)
[2021-02-13] MEDS ORDERED: FLU QUADRIvalent (3YOA+) 60 mcg/0.5 ml 2021-22(AFLURIA) IM ONE (18:00)
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
[2021-02-13 19:34] VITALS: BP 158/86
[2021-02-13] MEDS: RT-ALBUTEROL/IPRATROPIUM 3 ML (DUONEB) VIAL INH SCH (20:42)
[2021-02-13] MEDS ORDERED: DOCUSATE SODIUM 100 MG (COLACE) CAP PO PRN (21:00)
[2021-02-13] MEDS ORDERED: diphenhydrAMINE 25 MG TAB (BENADRYL) PO PRN (21:00)
[2021-02-13] MEDS ORDERED: MELATONIN 3 MG TABLET PO PRN (21:00)
[2021-02-13] MEDS ORDERED: ONDANSETRON 4 MG (ZOFRAN) ORAL DISSOLVE TAB PO PRN (21:00)
[2021-02-13] MEDS ORDERED: ACETAMINOPHEN 500 MG TAB (TYLENOL) PO PRN (21:00)
[2021-02-13] MEDS ORDERED: CALCIUM CARBONATE 500 MG (TUMS) TAB.CHEW PO PRN (21:00)
[2021-02-13] MEDS ORDERED: ONDANSETRON 4 MG/2 ML (SDV) Z0FRAN IVP PRN (21:00)
[2021-02-13] MEDS: SENNA W/DOCUSATE (SENOKOT S) TABLET PO SCH (21:02)
[2021-02-13] MEDS: polyethylene glycoL POWDER 17 GM (MIRALAX) PACK PO SCH (21:03)
[2021-02-13] MEDS: morphine INJ 10 MG/ML 1ML (SYR OR VIAL) IVP PRN (21:53)
[2021-02-13] MEDS: OLANZapine 5 MG (ZyPREXA) TAB PO SCH (21:53)
[2021-02-13] MEDS: ENOXAPARIN 40 MG/0.4 ML (LOVENOX) SYR SC SCH (21:53)
[2021-02-13] MEDS: meTOprolol TARTRATE 50 MG (LOPRESSOR) TAB PO SCH (21:53)
[2021-02-13 23:50] VITALS: BP 167/89
[2021-02-14] MEDS: NS IV 1000 ML 1,000 ML IV SCH ×3 (02:19→15:21)
[2021-02-14] MEDS: RT-ALBUTEROL/IPRATROPIUM 3 ML (DUONEB) VIAL INH SCH ×4 (03:20→21:43)
[2021-02-14] MEDS: VANCOMYCIN 1,750 MG/NS 500 ML IVPB IV SCH ×4 (03:42→15:22)
[2021-02-14 03:44] VITALS: BP 171/87
[2021-02-14] MEDS: morphine INJ 10 MG/ML 1ML (SYR OR VIAL) IVP PRN ×7 (03:49→21:09)
[2021-02-14 05:12] LABS: BASOPHILS # (AUTO) 0.1 10^3/uL (0.0-0.1); BASOPHILS % (AUTO) 1 % (0-10); EOSINOPHILS # (AUTO) 0.2 10^3/uL (0.0-0.3); EOSINOPHILS % (AUTO) 3 % (0-10); HEMATOCRIT 34 % (40-54); HEMOGLOBIN 10.6 g/dL (13.3-17.7); LYMPHOCYTES # (AUTO) 1.6 10^3/uL (1.0-4.0); LYMPHOCYTES % (AUTO) 33 % (12-44); MEAN CORPUSCULAR HEMOGLOBIN 27 pg (25-34); MEAN CORPUSCULAR HGB CONC 31 g/dL (32-36); MEAN CORPUSCULAR VOLUME 87 fL (80-99); MEAN PLATELET VOLUME 9.3 fL (9.0-12.2); MONOCYTES # (AUTO) 0.7 10^3/uL (0.0-1.0); MONOCYTES % (AUTO) 14 % (0-12); NEUTROPHILS # (AUTO) 2.4 10^3/uL (1.8-7.8); NEUTROPHILS % (AUTO) 48 % (42-75); PLATELET COUNT 274 10^3/uL (130-400)
[2021-02-14 05:38] LABS: ALBUMIN 3.4 GM/DL (3.2-4.5)
[2021-02-14 05:40] LABS: CALCIUM 9.1 MG/DL (8.5-10.1)
[2021-02-14 05:41] LABS: TOTAL PROTEIN 5.9 GM/DL (6.4-8.2)
[2021-02-14 05:43] LABS: BILIRUBIN,TOTAL 0.3 MG/DL (0.1-1.0)
[2021-02-14 05:45] LABS: CREATININE SERUM 0.68 MG/DL (0.60-1.30)
[2021-02-14] MEDS: inSUlin ASPART (NovoLOG) 1 UNIT/0.01 ML (CHARGE PER UNIT) SC SCH ×4 (05:50→21:06)
[2021-02-14 08:00] VITALS: BP 162/87
[2021-02-14] MEDS: meTOprolol TARTRATE 50 MG (LOPRESSOR) TAB PO SCH ×2 (08:16→21:06)
[2021-02-14] MEDS: HYDROcodone/APAP 7.5 MG/325 MG (LORTAB, LORCET PLUS) TABLET PO PRN ×3 (08:16→17:56)
[2021-02-14] MEDS: SENNA W/DOCUSATE (SENOKOT S) TABLET PO SCH ×2 (09:08→21:05)
[2021-02-14] MEDS: polyethylene glycoL POWDER 17 GM (MIRALAX) PACK PO SCH ×2 (09:08→21:05)
[2021-02-14] MEDS ORDERED: POTA10CA43 PO (09:41)
[2021-02-14] MEDS ORDERED: LISI20TA26 PO (09:41)
[2021-02-14] MEDS ORDERED: METO100T12 PO (09:41)
[2021-02-14] MEDS ORDERED: RIVA20TA PO (09:41)
[2021-02-14] MEDS ORDERED: OLAN10TA71 PO (09:41)
[2021-02-14] MEDS ORDERED: META800T PO (09:41)
[2021-02-14] MEDS ORDERED: CELE-63 PO (09:41)
[2021-02-14] MEDS ORDERED: [UNRECOGNIZED DRUG - CODE] PO (09:41)
[2021-02-14] MEDS ORDERED: DULO60CA59 PO (09:41)
[2021-02-14] MEDS ORDERED: ZINC50TA58 PO (09:41)
[2021-02-14] MEDS ORDERED: GABA-490 PO (09:41)
[2021-02-14] MEDS ORDERED: ASCO-262 PO (09:41)
[2021-02-14] MEDS ORDERED: ROPI3TAB4 PO (09:41)
[2021-02-14] MEDS ORDERED: MULT-1136 PO (09:42)
[2021-02-14] MEDS: SILVER SULFADIAZINE 50 GM CREAM TOP SCH ×2 (12:00→21:06)
[2021-02-14 12:07] VITALS: BP 159/81
[2021-02-14] MEDS: NICOTINE 21 MG (NICODERM) PATCH TD SCH (14:11)
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
[2021-02-14 16:00] VITALS: BP 113/58
--- NOTE | 2021-02-14 17:15 | Progress Note ---
Subjective Date Seen by a Provider: Feb 14, 2021 Time Seen by a Provider: 17:00 Subjective/Events-last exam Patient seen with Dr. Denis. Patient reports doing ok but hurts. Tolerating diet and ambulating to bathroom. Denies any fever/chills, N/V. Reports right foot dressing was recently changed and does not want it removed at this time. Focused Exam Lactate Level 02/13/21 08:55: Lactic Acid Level 0.70 Objective Exam Vital Signs Date Time Temp Pulse Resp B/P (MAP) Pulse Ox O2 Delivery O2 Flow Rate FiO2 02/14/21 16:00 36.2 60 20 113/58 (76) 96 Room Air 02/14/21 14:10 Room Air 02/14/21 12:07 36.2 60 20 159/81 (107) 95 Room Air 02/14/21 09:00 Room Air 02/14/21 08:00 35.3 66 20 162/87 (112) 100 Room Air 02/14/21 06:58 95 Room Air 02/14/21 03:44 36.2 65 20 171/87 (115) 93 Room Air 02/13/21 23:50 36.3 71 20 167/89 (115) 99 Room Air 02/13/21 20:55 Room Air 02/13/21 20:45 95 Room Air 02/13/21 19:34 36.4 71 20 158/86 (110) 95 Room Air I & O 02/14/21 07:00 Intake Total 3195 ml Balance 3195 ml Capillary Refill : General Appearance: No Apparent Distress, WD/WN Neck: Normal Inspection, Supple Respiratory: No Accessory Muscle Use, No Respiratory Distress Cardiovascular: Regular Rate, Rhythm, No Edema Gastrointestinal: normal bowel sounds, non tender, soft Extremity: Normal Range of Motion, Other (Left dressing in place C/D/I, Bilateral hand dressings in place) Neurologic/Psychiatric: Alert, Oriented x3 Results Lab Laboratory Tests 02/13/21 20:44: Glucometer 102 02/14/21 05:00: White Blood Count 5.0, Red Blood Count 3.91L, Hemoglobin 10.6L, Hematocrit 34L, Mean Corpuscular Volume 87, Mean Corpuscular Hemoglobin 27, Mean Corpuscular Hemoglobin Concent 31L, Red Cell Distribution Width 19.4H, Platelet Count 274, Mean Platelet Volume 9.3, Immature Granulocyte % (Auto) 0, Neutrophils (%) (Auto) 48, Lymphocytes (%) (Auto) 33, Monocytes (%) (Auto) 14H, Eosinophils (%) (Auto) 3, Basophils (%) (Auto) 1, Neutrophils # (Auto) 2.4, Lymphocytes # (Auto) 1.6, Monocytes # (Auto) 0.7, Eosinophils # (Auto) 0.2, Basophils # (Auto) 0.1, Immature Granulocyte # (Auto) 0.0, Sodium Level 130L, Potassium Level 5.0, Chloride Level 101, Carbon Dioxide Level 21, Anion Gap 8, Blood Urea Nitrogen 9, Creatinine 0.68, Estimat Glomerular Filtration Rate 125, BUN/Creatinine Ratio 13, Glucose Level 111H, Calcium Level 9.1, Corrected Calcium 9.6, Total Bilirubin 0.3, Aspartate Amino Transf (AST/SGOT) 18, Alanine Aminotransferase (ALT/SGPT) 15, Alkaline Phosphatase 104, Total Protein 5.9L, Albumin 3.4 02/14/21 10:51: Glucometer 121H 02/14/21 15:24: Glucometer 129H Microbiology 02/13/21 Gram Stain - Final, Resulted 02/13/21 Wound Culture - Preliminary, Resulted Staphylococcus aureus Corynebacterium species 02/13/21 Blood Culture - Preliminary, Resulted No growth Assessment/Plan Assessment/Plan Assess & Plan/Chief Complaint A 45-year-old male with cellulitis of the right foot third phalanx stump severe noncompliance including polysubstance abuse including current active methamphetamine use, marijuana as well as 1.5 packs of smoking daily and noncompliance from insulin for his insulin-dependent diabetes VSS WBC - 5.0 Continue with conservative medical management with IV abx, pain meds prn, and dressing changes AMANDO MARTINO [employer] Feb 14, 2021 17:15
[2021-02-14 19:50] VITALS: BP 160/90
[2021-02-14] MEDS: ENOXAPARIN 40 MG/0.4 ML (LOVENOX) SYR SC SCH (21:06)
[2021-02-14] MEDS: OLANZapine 5 MG (ZyPREXA) TAB PO SCH (21:06)
[2021-02-15 00:51] VITALS: BP 170/89
[2021-02-15] MEDS: morphine INJ 10 MG/ML 1ML (SYR OR VIAL) IVP PRN ×5 (01:01→14:57)
[2021-02-15] MEDS: ALPRAZolam 0.25 MG (XANAX) TAB PO PRN ×2 (01:01→08:09)
[2021-02-15] MEDS: RT-ALBUTEROL/IPRATROPIUM 3 ML (DUONEB) VIAL INH SCH ×2 (02:42→07:12)
[2021-02-15 03:53] VITALS: BP 191/91
[2021-02-15] MEDS: VANCOMYCIN 1,750 MG/NS 500 ML IVPB IV SCH ×2 (03:56)
[2021-02-15] MEDS: HYDROcodone/APAP 7.5 MG/325 MG (LORTAB, LORCET PLUS) TABLET PO PRN ×3 (04:10→14:57)
[2021-02-15 04:16] LABS: BASOPHILS # (AUTO) 0.1 10^3/uL (0.0-0.1); BASOPHILS % (AUTO) 1 % (0-10); EOSINOPHILS # (AUTO) 0.2 10^3/uL (0.0-0.3); EOSINOPHILS % (AUTO) 4 % (0-10); HEMATOCRIT 34 % (40-54); HEMOGLOBIN 10.3 g/dL (13.3-17.7); LYMPHOCYTES # (AUTO) 1.6 10^3/uL (1.0-4.0); LYMPHOCYTES % (AUTO) 33 % (12-44); MEAN CORPUSCULAR HEMOGLOBIN 27 pg (25-34); MEAN CORPUSCULAR HGB CONC 30 g/dL (32-36); MEAN CORPUSCULAR VOLUME 88 fL (80-99); MEAN PLATELET VOLUME 9.5 fL (9.0-12.2); MONOCYTES # (AUTO) 0.6 10^3/uL (0.0-1.0); MONOCYTES % (AUTO) 12 % (0-12); NEUTROPHILS # (AUTO) 2.4 10^3/uL (1.8-7.8); NEUTROPHILS % (AUTO) 50 % (42-75); PLATELET COUNT 258 10^3/uL (130-400); WHITE BLOOD COUNT 4.9 10^3/uL (4.3-11.0)
[2021-02-15 04:39] LABS: ALBUMIN 3.4 GM/DL (3.2-4.5); POTASSIUM 4.6 MMOL/L (3.6-5.0)
[2021-02-15 04:41] LABS: CALCIUM 9.2 MG/DL (8.5-10.1)
[2021-02-15 04:42] LABS: TOTAL PROTEIN 5.9 GM/DL (6.4-8.2)
[2021-02-15 04:43] LABS: BILIRUBIN,TOTAL 0.2 MG/DL (0.1-1.0)
[2021-02-15 04:45] LABS: CREATININE SERUM 0.73 MG/DL (0.60-1.30)
[2021-02-15] MEDS: inSUlin ASPART (NovoLOG) 1 UNIT/0.01 ML (CHARGE PER UNIT) SC SCH ×2 (05:20→10:54)
[2021-02-15 08:00] VITALS: BP 198/125
[2021-02-15] MEDS: NICOTINE 21 MG (NICODERM) PATCH TD SCH (08:03)
[2021-02-15] MEDS: meTOprolol TARTRATE 50 MG (LOPRESSOR) TAB PO SCH (08:03)
[2021-02-15] MEDS ORDERED: NICOTINE PATCH REMOVAL TP SCH (08:59)
[2021-02-15] MEDS: SENNA W/DOCUSATE (SENOKOT S) TABLET PO SCH (09:42)
[2021-02-15] MEDS: polyethylene glycoL POWDER 17 GM (MIRALAX) PACK PO SCH (09:42)
[2021-02-15 11:06] VITALS: BP 198/125
[2021-02-15] MEDS ORDERED: ACETAMINOPHEN 325 MG TABLET PO PRN (11:30)
[2021-02-15 12:00] VITALS: BP 198/98
[2021-02-15] MEDS ORDERED: lisINopril 20 MG (PRINIVIL) TABLET PO NR (13:15)
[2021-02-15] MEDS ORDERED: hydrALAZINE (APESOLINE) 20 MG/ML VIAL IV PRN (13:15)
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
[2021-02-15] MEDS ORDERED: TROUGH ORDER-PHARMACY XX NR (15:00)
[2021-02-15] MEDS ORDERED: LNZ600T PO (15:49)
--- NOTE | 2021-02-15 15:57 | Discharge Summary ---
Discharge Summary Reconcile Patient Problems Problems Reviewed?: Yes Instructions for Patient Via [email or web address], Assessment/Instructions Take medications as prescribed. Follow up with your PCP. Return with worsening pain, swelling, or if you feel like you are getting worse. Physician to follow Patient: Juan Diego Discharge Diet for Home: No Restrictions Hospital Course Date of Admission: Feb 13, 2021 at 12:11 Admission Diagnosis : T2DM with diabetic foot infection Family Physician/Provider: Casie,Local Physician Date of Discharge: 02/15/21 Discharge Diagnosis: T2DM with polymicrobial diabetic foot infection Hospital Course: Sahil Ramirez is a 45 year old male with T2DM who was admitted with a diabetic foot infection. He was started on IV antibiotics. His culture showed Staph aureus, Corynebacterium, and Strep. There was no evidence of osteomyelitis or abscess. He was transitioned to oral Linezolid. He will complete a 10-day course of antibiotics as an outpatient. He should follow up with his PCP. Labs and Pending Lab Test: Laboratory Tests 02/14/21 20:18: Glucometer 118H 02/15/21 04:00: White Blood Count 4.9, Red Blood Count 3.88L, Hemoglobin 10.3L, Hematocrit 34L, Mean Corpuscular Volume 88, Mean Corpuscular Hemoglobin 27, Mean Corpuscular Hemoglobin Concent 30L, Red Cell Distribution Width 19.6H, Platelet Count 258, Mean Platelet Volume 9.5, Immature Granulocyte % (Auto) 0, Neutrophils (%) (Auto) 50, Lymphocytes (%) (Auto) 33, Monocytes (%) (Auto) 12, Eosinophils (%) (Auto) 4, Basophils (%) (Auto) 1, Neutrophils # (Auto) 2.4, Lymphocytes # (Auto) 1.6, Monocytes # (Auto) 0.6, Eosinophils # (Auto) 0.2, Basophils # (Auto) 0.1, Immature Granulocyte # (Auto) 0.0, Sodium Level 131L, Potassium Level 4.6, Chloride Level 100, Carbon Dioxide Level 22, Anion Gap 9, Blood Urea Nitrogen 13, Creatinine 0.73, Estimat Glomerular Filtration Rate 115, BUN/Creatinine Ratio 18, Glucose Level 119H, Calcium Level 9.2, Corrected Calcium 9.7, Total Bilirubin 0.2, Aspartate Amino Transf (AST/SGOT) 24, Alanine Aminotransferase (ALT/SGPT) 18, Alkaline Phosphatase 101, Total Protein 5.9L, Albumin 3.4 02/15/21 10:50: Glucometer 147H 02/15/21 14:25: Vancomycin Level Trough 19.3 Microbiology 02/13/21 Gram Stain - Final, Resulted 02/13/21 Wound Culture - Preliminary, Resulted Staphylococcus aureus Corynebacterium striatum Strep agalactiae Group B 02/13/21 Blood Culture - Preliminary, Resulted No growth Home Meds Active Linezolid 600 Mg Tablet 600 Mg PO BID 10 Days Reported Multivitamin 1 Each Tablet 1 Each PO DAILY Vitamin A 10,000 Unit Cap 10,000 Unit PO DAILY Zinc 50 Mg Tablet 50 Mg PO DAILY Vitamin C (Ascorbate Calcium) 500 Mg Tablet 500 Mg PO BID Metaxalone 800 Mg Tablet 800 Mg PO TID Ropinirole HCl 3 Mg Tablet 3 Mg PO HS Xarelto (Rivaroxaban) 20 Mg Tablet 20 Mg PO DAILY Celecoxib 200 Mg Capsule 200 Mg PO BID Olanzapine 10 Mg Tablet 10 Mg PO HS Potassium Chloride 10 Meq Capsule.er 10 Meq PO DAILY Gabapentin 400 Mg Capsule 400 Mg PO TID Metoprolol Tartrate 100 Mg Tablet 100 Mg PO BID Lisinopril 20 Mg Tablet 20 Mg PO DAILY Duloxetine HCl 60 Mg Capsule.dr 60 Mg PO DAILY Consulations Surgery Patient Allergies: Coded Allergies: latex (Unverified Allergy, Intermediate, 07/20/19) Haloperidol Lactate (Unverified Allergy, Mild, 07/20/19) chlorpromazine HCl (Unverified Allergy, Mild, 07/20/19) haloperidol (Unverified Allergy, Mild, 07/20/19) Height (Feet): 5 Height (Inches): 10.00 Weight (Pounds): 258 Weight (Ounces): 6.1 Home Health Need/Face to Face Date of Face to Face: Feb 15, 2021 Clinical Findings: Instability, Muscle weakness, Unsteady gait, Wound infection I have seen Pt [id number]: Yes Discharged To: Home Diagnosis/Conditions: Diabetic foot infection Type 2 diabetes mellitus Debility Problems/Diagnosis/Condition: (1) Type 2 diabetes mellitus with complication (2) Diabetic foot ulcer Patient is Homebound due to: Ashok fall risk due to instabilty, Muscle weakness Homebound Status Due to the above stated illness, injury or surgical procedure (medical condition or diagnosis) and associated clinical findings, the patient is homebound because of his/her inability to leave home except with aid of a supportive device and/or person AND leaving the home requires a considerable and taxing effort or is medically contraindicated. Pt req the following assistanc: Aid of another person Home Health Nursing Orders Home Health Services Order: Nursing Services, Thermoforming Machine Operator-Evaluate & Treat, Physical Therapy-Evaluate & Treat, Wound Care-Eval/Treat Home Health Infusion Therapy Line Start Date: Feb 13, 2021 Therapy Orders Therapy Orders: OT (must have SN or PT order), Physical Therapy Therapy Specific Orders: Eval assistive deivces, Teach enviro modifications/safety, Gait training, Increase strength/endurance Certify Stmt I certify that this patient is under my care and that I, a nurse practitioner or a physician; a painter assistant working with me, had a face to face encounter that - meets the physician face to face encounter requirements with this patient as dated. Discharge Physical Exam General: Alert, Oriented X3, No Acute Distress HEENT: Atraumatic, EOMI, Mucous Memb Moist/[place] Lungs: Clear to Auscultation, Normal Air Movement Heart: Regular Rate, Normal S1, Normal S2, No Murmurs Abdomen: Normal Bowel Sounds, Soft Extremities: Other (diabetic foot ulcer) Skin: Other (diabetic foot ulcer) Neuro: Normal Speech, Other (motor weakness) Psych/Mental Status: Mental Status NL, Other (flat affect) CHEMA SORTO MD Feb 15, 2021 15:57
[2021-02-16] MEDS ORDERED: lisINopril 20 MG (PRINIVIL) TABLET PO SCH (09:00)
[2021-02-16] MEDS ORDERED: lisINopril 40 MG (PRINIVIL) TABLET PO SCH (09:00)
== END 2021-02-15 16:15 | disposition home health service (06) | DRG 638 ==
LOC: EDUNIT# 07:56 → ER 07:58 → 4TH 12:11
PROVIDERS: ADMIT Internal Medicine; ATTEND Internal Medicine
DX: E11.621 Type 2 diabetes mellitus with foot ulcer (principal); L03.115 Cellulitis of right lower limb; E87.1 Hypo-osmolality and hyponatremia; L97.512 Non-pressure chronic ulcer of other part of right foot with fat layer exposed; B95.61 Methicillin susceptible Staphylococcus aureus infection as the cause of diseases classified elsewhere; B95.1 Streptococcus, group B, as the cause of diseases classified elsewhere; B96.89 Other specified bacterial agents as the cause of diseases classified elsewhere; E11.628 Type 2 diabetes mellitus with other skin complications; I10 Essential (primary) hypertension; F41.9 Anxiety disorder, unspecified; F20.9 Schizophrenia, unspecified; E11.42 Type 2 diabetes mellitus with diabetic polyneuropathy; F17.210 Nicotine dependence, cigarettes, uncomplicated; F15.10 Other stimulant abuse, uncomplicated; F12.10 Cannabis abuse, uncomplicated; F31.9 Bipolar disorder, unspecified; F10.10 Alcohol abuse, uncomplicated; Z89.411 Acquired absence of right great toe; Z89.421 Acquired absence of other right toe(s); Z89.422 Acquired absence of other left toe(s); Z89.012 Acquired absence of left thumb; Z89.021 Acquired absence of right finger(s); Z91.19 Patient's noncompliance with other medical treatment and regimen; Z89.022 Acquired absence of left finger(s); Z89.011 Acquired absence of right thumb; Z79.4 Long term (current) use of insulin; T23.302D Burn of third degree of left hand, unspecified site, subsequent encounter; T23.301D Burn of third degree of right hand, unspecified site, subsequent encounter; Z91.040 Latex allergy status; Z79.899 Other long term (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; Z88.8 Allergy status to other drugs, medicaments and biological substances
CPT/HCPCS: 36415; 36569; 71045; 73630; 76937; 80053; 80202; 82947; 83605; 85025; 85610; 85652; 86141; 87040; 87070; 87077; 87186; 87205; 94640

== ENCOUNTER → 2021-02-26 | Outpatient (CLI) | payer MEDICARE, MEDICAID ==
[~2021-02-26] MED LIST changes: +ASCO-262 PO; +CELE-63 PO; +LNZ600T PO; +META800T PO; +MULT-1136 PO; +RIVA20TA PO; +ZINC50TA58 PO
== END ==
LOC: WOUNDCARE 02-25 13:54
PROVIDERS: ATTEND Family Medicine
DX: L02.415 Cutaneous abscess of right lower limb (principal); L97.512 Non-pressure chronic ulcer of other part of right foot with fat layer exposed; E11.621 Type 2 diabetes mellitus with foot ulcer; T23.341A Burn of third degree of multiple right fingers (nail), including thumb, initial encounter; T23.342A Burn of third degree of multiple left fingers (nail), including thumb, initial encounter; E66.01 Morbid (severe) obesity due to excess calories; T21.35XA Burn of third degree of buttock, initial encounter; A49.02 Methicillin resistant Staphylococcus aureus infection, unspecified site; E11.52 Type 2 diabetes mellitus with diabetic peripheral angiopathy with gangrene
CPT/HCPCS: 99213

== ENCOUNTER → 2021-03-05 | Outpatient (CLI) | payer MEDICARE, MEDICAID ==
[~2021-03-05] MED LIST changes: +CLIN-144 PO; -CLIN300C12 PO
== END ==
LOC: WOUNDCARE 14:55
PROVIDERS: ATTEND Family Medicine
DX: E11.52 Type 2 diabetes mellitus with diabetic peripheral angiopathy with gangrene (principal); E11.621 Type 2 diabetes mellitus with foot ulcer; L97.512 Non-pressure chronic ulcer of other part of right foot with fat layer exposed; L02.415 Cutaneous abscess of right lower limb; T23.341A Burn of third degree of multiple right fingers (nail), including thumb, initial encounter; T23.342A Burn of third degree of multiple left fingers (nail), including thumb, initial encounter; E66.01 Morbid (severe) obesity due to excess calories; T21.35XA Burn of third degree of buttock, initial encounter; A49.02 Methicillin resistant Staphylococcus aureus infection, unspecified site
CPT/HCPCS: 99214

== ENCOUNTER 2021-03-30 22:07 | Observation (INO) | payer MEDICARE, MEDICAID ==
[~2021-03-30] VITALS: Ht 175.3 cm; Wt 86.5 kg
[~2021-03-30 22:07] MED LIST changes: -LISI1TAB26 PO; +LISI1TAB48 PO; -POTA10TA36 PO; +POTA10TA37 PO
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
[2021-03-30] MEDS ORDERED: LORazepam INJ 2 MG/ML (ATIVAN) VIAL IM/IV ONE (22:30)
[2021-03-30 23:00] LABS: LYMPHOCYTES # (AUTO) 2.3 10^3/uL (1.0-4.0); MEAN PLATELET VOLUME 10.3 fL (9.0-12.2); MONOCYTES # (AUTO) 1.1 10^3/uL (0.0-1.0)
[2021-03-30 23:02] LABS: BASOPHILS # (AUTO) 0.1 10^3/uL (0.0-0.1); BASOPHILS % (AUTO) 1 % (0-10); EOSINOPHILS # (AUTO) 0.1 10^3/uL (0.0-0.3); EOSINOPHILS % (AUTO) 1 % (0-10); HEMATOCRIT 44 % (40-54); HEMOGLOBIN 14.6 g/dL (13.3-17.7); LYMPHOCYTES % (AUTO) 20 % (12-44); MEAN CORPUSCULAR HEMOGLOBIN 29 pg (25-34); MEAN CORPUSCULAR HGB CONC 33 g/dL (32-36); MEAN CORPUSCULAR VOLUME 86 fL (80-99); MONOCYTES % (AUTO) 9 % (0-12); NEUTROPHILS # (AUTO) 8.1 10^3/uL (1.8-7.8); NEUTROPHILS % (AUTO) 69 % (42-75); PLATELET COUNT 337 10^3/uL (130-400); WHITE BLOOD COUNT 11.7 10^3/uL (4.3-11.0)
[2021-03-30] MEDS ORDERED: LORazepam INJ 2 MG/ML (ATIVAN) VIAL ONE (23:03)
[2021-03-30 23:10] LABS: CHLORIDE 94 MMOL/L (98-107)
[2021-03-30 23:11] LABS: POTASSIUM 4.3 MMOL/L (3.6-5.0); SODIUM 133 MMOL/L (135-145)
[2021-03-30 23:12] LABS: CALCIUM 9.6 MG/DL (8.5-10.1)
[2021-03-30 23:13] LABS: GLUCOSE 181 MG/DL (70-105)
[2021-03-30 23:14] LABS: CARBON DIOXIDE 18 MMOL/L (21-32)
[2021-03-30 23:15] LABS: BILIRUBIN,TOTAL 0.5 MG/DL (0.1-1.0)
[2021-03-30 23:17] LABS: ALKALINE PHOSPHATASE 133 U/L (40-136); CREATININE SERUM 0.77 MG/DL (0.60-1.30); GFR ESTIMATED 108
[2021-03-30 23:18] LABS: BUN/CREATININE RATIO 8
[2021-03-30 23:20] LABS: ALANINE AMINOTRANSFERASE 15 U/L (0-55); SALICYLATE < 5.0 MG/DL (5.0-20.0)
[2021-03-30 23:23] LABS: ACETAMINOPHEN < 10 UG/ML (10-30)
[2021-03-30 23:41] LABS: AMPHETAMINE SCREEN, URINE POSITIVE (NEGATIVE); BARBITURATE SCREEN URINE NEGATIVE (NEGATIVE); BENZODIAZEPINES SCREEN URINE NEGATIVE (NEGATIVE); CANNABINOID SCREEN, URINE POSITIVE (NEGATIVE); COCAINE SCREEN URINE NEGATIVE (NEGATIVE); METHADONE STAT NEGATIVE (NEGATIVE); METHAMPHETAMINE SCREEN URINE S POSITIVE (NEGATIVE); OPIATE SCREEN URINE NEGATIVE (NEGATIVE); OXYCODONE STAT NEGATIVE (NEGATIVE); PROPOXYPHENE STAT NEGATIVE (NEGATIVE); TRICYCLIC ANTIDEPRESSANTS SCRE NEGATIVE (NEGATIVE)
--- NOTE | 2021-03-30 23:59 | Diagnostic Imaging Report ---
PROCEDURE: CT head without contrast. TECHNIQUE: Multiple contiguous axial images were obtained through the brain without the use of intravenous contrast. Auto Exposure Controls were utilized during the CT exam to meet ALARA standards for radiation dose reduction. INDICATION: Seizures There is no mass, shift of the midline or hemorrhage to suggest an acute intracranial abnormality. The ventricles are not abnormally dilated and stable in size when compared to the prior exam of 09/16/2018. The normal tentorial blush is noted. The bone windows show no sign of a fracture or of a destructive lesion. The orbits are symmetrical and within normal limits. There is mucosal thickening of the left ethmoid sinus, the right sphenoid sinus, and the right maxillary antrum. Minimal mucosal thickening of the right ethmoid sinuses is also noted. IMPRESSION: 1. There is no evidence for an acute intracranial abnormality. 2. If clinical concern regarding an underlying abnormality persists, then MRI would be recommended for further study. Dictated by: Dictated on workstation # [id number]
[2021-03-31] MEDS ORDERED: LABETALOL HCL 20 MG/4 ML VIAL IV ONE
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
[2021-03-31] MEDS ORDERED: LORazepam INJ 2 MG/ML (ATIVAN) VIAL IVP PRN (01:30)
[2021-03-31 02:29] VITALS: BP 145/125
[2021-03-31] MEDS ORDERED: RT-ALBUTEROL SULF 2.5 MG/3 ML PRE-MIX VIAL INH PRN (02:45)
[2021-03-31] MEDS: NS IV 1000 ML 1,000 ML IV SCH ×3 (04:33→17:35)
[2021-03-31] MEDS ORDERED: POTASSIUM CL 10MEQ/50ML IVPB 50 ML IV SCH (06:00)
[2021-03-31] MEDS ORDERED: MAGNESIUM 1 GM/100 ML IVPB 100 ML IV SCH (06:00)
[2021-03-31] MEDS ORDERED: KCL 20 MEQ TAB (K-DUR) PO SCH (06:00)
[2021-03-31] MEDS: inSUlin ASPART (NovoLOG) 1 UNIT/0.01 ML (CHARGE PER UNIT) SC SCH ×3 (07:40→16:00)
[2021-03-31] MEDS ORDERED: lisINopril 20 MG (PRINIVIL) TABLET PO SCH (09:00)
[2021-03-31] MEDS ORDERED: meTOprolol TARTRATE 50 MG (LOPRESSOR) TAB PO SCH (09:00)
[2021-03-31] MEDS ORDERED: ACETAMINOPHEN 500 MG TAB (TYLENOL) PO PRN (10:00)
[2021-03-31] MEDS: GABAPENTIN 100 MG (NEURONTIN) CAP PO SCH ×2 (10:06→13:45)
[2021-03-31] MEDS: LORazepam 0.5 MG (ATIVAN) TABLET PO PRN ×2 (10:07→17:30)
--- NOTE | 2021-03-31 12:19 | History & Physical-Hospitalist ---
History of Present Illness Source: patient, family Exam Limitations: no limitations Date Seen 03/31/21 Time Seen by a Provider: 09:30 Attending Physician Lauren Sorto MD PCP No,Local Physician Referring Physician Date of Admission Mar 31, 2021 at 00:20 Home Medications & Allergies Home Medications Reviewed patient Home Medication Reconciliation performed by pharmacy medication reconciliations maintenance shop technician and/or nursing. Patients Allergies have been reviewed. Allergies Allergies Coded Allergies latex (Unverified Allergy, Intermediate, 07/20/19) Haloperidol Lactate (Unverified Allergy, Mild, 07/20/19) chlorpromazine HCl (Unverified Allergy, Mild, 07/20/19) haloperidol (Unverified Allergy, Mild, 07/20/19) Past Ombfdty-Qaejbw-Ggmxqq Hx Patient Social History Tobacco Use?: Yes Tobacco type used: Cigarettes Smoking Status: Current Everyday Smoker Smokeless Tobacco Frequency: Current Everyday User Use of E-Cig and/or Vaping dev: Unable to obtain Substance use?: Yes Substance type: Methamphetamine, Nicotine, Marijuana Substance frequency: Several times a month Alcohol Use?: Yes Alcohol type: Beer Alcohol Frequency: Daily Additional Alcohol Comments: 4-5 beers daily Pt feels they are or have been: Unable to obtain Immunizations Up To Date Date of Influenza Vaccine: Jan 09, 2019 First/Initial COVID19 Vaccinat: 08/09/2020 Second COVID19 Vaccination Allen: 08/09/2020 Tetanus Booster (TDap): Less Than 5 Years Date of Pneumonia Vaccine: Jan 09, 2019 Seasonal Allergies Seasonal Allergies: No Current Status Advance Directives: Unable to obtain Communicates: Verbally Primary Language: Burkinan Preferred Spoken Language: Burkinan Past Medical History Surgeries: Orthopedic Currently Using CPAP: No Currently Using BIPAP: No Hypertension Headaches /Migraines Hepatitis Amputee Diabetes, Insulin dep Loss of Vision: Denies Hearing Impairment: Denies Anxiety, Suicide Attempts, Bipolar, Schizophrenia, Violent Behavior Blood Disorders: No Adverse Reaction/Blood Tranf: No PMHx: 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 6.1oz. 117.476754jx; 28.14 BMI Method:Stated Results Results/Procedures Labs Laboratory Tests 03/30/21 21:51 Patient resulted labs reviewed. LAUREN SORTO MD Mar 31, 2021 12:19
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
== END 2021-03-31 18:08 | disposition left against medical advice (07) ==
LOC: EDUNIT# 22:07 → ER 22:08 → ICU 22:09 → UNDOADMOB 03-31 00:20 → ICU 03-31 00:20 → UNDODISOB 03-31 18:08
PROVIDERS: ADMIT Internal Medicine; ATTEND Internal Medicine
DX: F15.129 Other stimulant abuse with intoxication, unspecified (principal); R41.82 Altered mental status, unspecified; Z79.01 Long term (current) use of anticoagulants; R56.9 Unspecified convulsions; Z79.899 Other long term (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; F17.210 Nicotine dependence, cigarettes, uncomplicated; Z79.4 Long term (current) use of insulin; F41.9 Anxiety disorder, unspecified; F20.9 Schizophrenia, unspecified; E11.40 Type 2 diabetes mellitus with diabetic neuropathy, unspecified; E11.69 Type 2 diabetes mellitus with other specified complication; F32.A Depression, unspecified; Z89.421 Acquired absence of other right toe(s); Z89.012 Acquired absence of left thumb; Z89.011 Acquired absence of right thumb; Z89.022 Acquired absence of left finger(s); Z89.021 Acquired absence of right finger(s); I16.0 Hypertensive urgency; Z91.14 Patient's other noncompliance with medication regimen; Z53.21 Procedure and treatment not carried out due to patient leaving prior to being seen by health care provider
CPT/HCPCS: 70450; 80053; 80306; 82947 ×2; 85025; 96372; 96374; 99285; G0378; G0480 ×3; 36415; 80320; 80329

== ENCOUNTER 2021-05-01 19:18 | Inpatient (IN) | payer MEDICARE, MEDICAID ==
[~2021-05-01] VITALS: Ht 175 cm; Wt 97.2 kg
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
[2021-05-01] MEDS ORDERED: LACTATED RINGERS 1,000 ML IV ONE (19:30)
[2021-05-01] MEDS ORDERED: LORazepam INJ 2 MG/ML (ATIVAN) VIAL IVP ONE (19:30)
[2021-05-01] MEDS ORDERED: BENZTROPINE 2 MG/2 ML INJ (COGENTIN) AMP IV ONE (19:30)
[2021-05-01 20:04] LABS: BASOPHILS # (AUTO) 0.1 10^3/uL (0.0-0.1); BASOPHILS % (AUTO) 1 % (0-10); EOSINOPHILS % (AUTO) 0 % (0-10); HEMATOCRIT 42 % (40-54); LYMPHOCYTES # (AUTO) 3.2 10^3/uL (1.0-4.0); LYMPHOCYTES % (AUTO) 29 % (12-44); MEAN CORPUSCULAR HEMOGLOBIN 30 pg (25-34); MEAN CORPUSCULAR HGB CONC 34 g/dL (32-36); MEAN CORPUSCULAR VOLUME 90 fL (80-99); MEAN PLATELET VOLUME 10.5 fL (9.0-12.2); MONOCYTES # (AUTO) 1.1 10^3/uL (0.0-1.0); MONOCYTES % (AUTO) 10 % (0-12); NEUTROPHILS # (AUTO) 6.7 10^3/uL (1.8-7.8); NEUTROPHILS % (AUTO) 60 % (42-75); PLATELET COUNT 405 10^3/uL (130-400); WHITE BLOOD COUNT 11.1 10^3/uL (4.3-11.0)
[2021-05-01 20:16] LABS: POTASSIUM 5.5 MMOL/L (3.6-5.0)
[2021-05-01 20:20] LABS: BILIRUBIN,TOTAL 1.1 MG/DL (0.1-1.0)
[2021-05-01 20:22] LABS: CREATININE SERUM 1.56 MG/DL (0.60-1.30)
[2021-05-01] MEDS ORDERED: AMMONIA INHALATION 0.33 ML AMP ONE (20:25)
[2021-05-01] MEDS ORDERED: NS IV 1000 ML 1,000 ML ONE (22:02)
[2021-05-01 22:17] VITALS: BP 122/64
[2021-05-01] MEDS ORDERED: ONDANSETRON 4 MG/2 ML (SDV) Z0FRAN IV PRN (22:30)
[2021-05-01] MEDS ORDERED: ACETAMINOPHEN 325 MG TABLET PO PRN (22:30)
[2021-05-01] MEDS ORDERED: BENZTROPINE 2 MG/2 ML INJ (COGENTIN) AMP IM PRN (22:30)
[2021-05-01] MEDS: NS IV 1000 ML 1,000 ML IV SCH (23:13)
[2021-05-01 23:30] VITALS: BP 159/97
[2021-05-02] VITALS (7 sets, daily range): BP systolic 110–152; BP diastolic 70–90
[2021-05-02] MEDS: LORazepam INJ 2 MG/ML (ATIVAN) VIAL IV PRN ×3 (03:18→18:39)
[2021-05-02 03:25] LABS: BILIRUBIN,URINE NEGATIVE (NEGATIVE); CLARITY,URINE CLEAR; COLOR,URINE YELLOW; GLUCOSE, URINE (UA) NEGATIVE (NEGATIVE); KETONES,URINE NEGATIVE (NEGATIVE); LEUKOCYTE ESTERASE ,URINE NEGATIVE (NEGATIVE); NITRITE,URINE NEGATIVE (NEGATIVE); PROTEIN,URINE 1+ (NEGATIVE)
[2021-05-02 03:41] LABS: AMPHETAMINE SCREEN, URINE POSITIVE (NEGATIVE); BARBITURATE SCREEN URINE NEGATIVE (NEGATIVE); BENZODIAZEPINES SCREEN URINE POSITIVE (NEGATIVE); CANNABINOID SCREEN, URINE POSITIVE (NEGATIVE); COCAINE SCREEN URINE NEGATIVE (NEGATIVE); METHADONE STAT NEGATIVE (NEGATIVE); METHAMPHETAMINE SCREEN URINE S POSITIVE (NEGATIVE); OPIATE SCREEN URINE NEGATIVE (NEGATIVE); OXYCODONE STAT NEGATIVE (NEGATIVE); PROPOXYPHENE STAT NEGATIVE (NEGATIVE); TRICYCLIC ANTIDEPRESSANTS SCRE NEGATIVE (NEGATIVE)
[2021-05-02 03:44] LABS: BACTERIA,URINE NEGATIVE /HPF; SQUAMOUS EPITHELIAL CELL,UR 0-2 /HPF
[2021-05-02 08:19] LABS: BASOPHILS # (AUTO) 0.1 10^3/uL (0.0-0.1); BASOPHILS % (AUTO) 1 % (0-10); EOSINOPHILS # (AUTO) 0.1 10^3/uL (0.0-0.3); EOSINOPHILS % (AUTO) 1 % (0-10); HEMATOCRIT 37 % (40-54); HEMOGLOBIN 12.6 g/dL (13.3-17.7); LYMPHOCYTES # (AUTO) 2.8 10^3/uL (1.0-4.0); LYMPHOCYTES % (AUTO) 30 % (12-44); MEAN CORPUSCULAR HEMOGLOBIN 30 pg (25-34); MEAN CORPUSCULAR HGB CONC 34 g/dL (32-36); MEAN CORPUSCULAR VOLUME 88 fL (80-99); MEAN PLATELET VOLUME 10.7 fL (9.0-12.2); MONOCYTES # (AUTO) 0.9 10^3/uL (0.0-1.0); MONOCYTES % (AUTO) 9 % (0-12); NEUTROPHILS # (AUTO) 5.4 10^3/uL (1.8-7.8); NEUTROPHILS % (AUTO) 58 % (42-75); PLATELET COUNT 320 10^3/uL (130-400); WHITE BLOOD COUNT 9.2 10^3/uL (4.3-11.0)
[2021-05-02 08:40] LABS: CALCIUM 8.6 MG/DL (8.5-10.1); CREATININE SERUM 0.83 MG/DL (0.60-1.30)
[2021-05-02] MEDS: NS IV 1000 ML 1,000 ML IV SCH ×2 (09:33→18:23)
[2021-05-02] MEDS: HYDROcodone/APAP 5 MG/325 MG (LORTAB) TAB PO PRN ×2 (12:34→22:06)
--- NOTE | 2021-05-02 17:40 | History & Physical-Hospitalist ---
History of Present Illness HPI/Chief Complaint Sahil Ramirez is a 45 year old male with PMH severe albert requiring extensive skin grafting, HTN, T2DM, polysubstance abuse, schizophrenia, bipolar disorder, who presented due to restlessness. He is unable or unwilling to awaken to provide any history. He reportedly had been at home and not taking any of his medications. He then used methamphetamine and took all of his medications. He then became very restless and agitated and decided to come to the ER. Source: patient, RN/MD Exam Limitations: clinical condition Date Seen 05/02/21 Time Seen by a Provider: 10:25 Attending Physician John Wen MD PCP No,Local Physician Referring Physician Date of Admission May 01, 2021 at 20:40 Home Medications & Allergies Home Medications Reviewed patient Home Medication Reconciliation performed by pharmacy medication reconciliations packaging technician and/or nursing. Patients Allergies have been reviewed. Allergies Allergies Coded Allergies latex (Unverified Allergy, Intermediate, 07/20/19) Haloperidol Lactate (Unverified Allergy, Mild, 07/20/19) chlorpromazine HCl (Unverified Allergy, Mild, 07/20/19) haloperidol (Unverified Allergy, Mild, 07/20/19) Past Oxjwzat-Iouabt-Tlgcfa Hx Patient Social History Tobacco Use?: Yes Tobacco type used: Cigarettes Smoking Status: Current Everyday Smoker Smokeless Tobacco Frequency: Current Everyday User Use of E-Cig and/or Vaping dev: No Substance use?: Yes Substance type: Methamphetamine, Marijuana Substance frequency: Couple times a week Alcohol Use?: Unable to obtain Alcohol type: Beer, Hard Liquor Alcohol Frequency: Couple times a week Pt feels they are or have been: Unable to obtain Immunizations Up To Date Date of Influenza Vaccine: Jan 09, 2019 First/Initial COVID19 Vaccinat: 08/09/2020 Second COVID19 Vaccination Allen: 08/09/2020 Tetanus Booster (TDap): Less Than 5 Years Date of Pneumonia Vaccine: Jan 09, 2019 Seasonal Allergies Seasonal Allergies: No Current Status Advance Directives: No Communicates: Verbally Primary Language: Northern Irish Preferred Spoken Language: Northern Irish Is interpretation needed?: No Past Medical History Surgeries: Orthopedic Currently Using CPAP: No Currently Using BIPAP: No Hypertension Headaches /Migraines Hepatitis Amputee Diabetes, Insulin dep Loss of Vision: Denies Hearing Impairment: Denies Anxiety, Suicide Attempts, Bipolar, Schizophrenia, Violent Behavior Blood Disorders: No Adverse Reaction/Blood Tranf: No PMHx: 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 Bipolar Schizophrenia Hypertension Depression Hep c s/p treatment PSH: R hand surgery amputation R 5th toe Family Medical History AIDS Alcoholism 19 FATHER 19 MOTHER Review of Systems Constitutional: see HPI, malaise Physical Exam Physical Exam Vital Signs Vital Signs - First Documented 05/01/21 20:01 Temp 35.7 Pulse 100 Resp 22 B/P (MAP) 114/53 (73) Pulse Ox 94 O2 Delivery Room Air Capillary Refill : Less Than 3 Seconds Height, Weight, BMI Height: 5'10.00" Weight: 258lbs. 6.1oz. [id number]; 31.73 BMI Method:Stated General Appearance: No Apparent Distress, Chronically ill HEENT: PERRL/EOMI, Pharynx Normal Neck: Normal Inspection, Supple Respiratory: Lungs Clear, Normal Breath Sounds, No Respiratory Distress Cardiovascular: Regular Rate, Rhythm, No Edema, No Murmur Gastrointestinal: Normal Bowel Sounds, Non Tender, Soft Extremity: Non Tender, No Pedal Edema Neurologic/Psychiatric: Other (difficult to arouse, uncooperative) Results Results/Procedures Labs Laboratory Tests 05/01/21 19:50 05/02/21 08:08 Patient resulted labs reviewed. Assessment/Plan Admission Diagnosis Acute kidney injury Admission Status: Inpatient Order (span 2 midnights) Reason for Inpatient Admission: Dehydration, electrolyte abnormalities Assessment and Plan DAVID Hyponatremia Hyperkalemia Elevated LFTs Acute methamphetamine intoxication IV fluids Monitor and replace electrolytes as needed Repeat LFTs tomorrow Likely all secondary to methamphetamine abuse and intoxication Diagnosis/Problems Diagnosis/Problems (1) Methamphetamine intoxication Status: Acute (2) DAVID (acute kidney injury) Status: Acute (3) Hyponatremia Status: Acute (4) Hyperkalemia Status: Acute CHEMA SORTO MD May 02, 2021 17:40
[2021-05-02] MEDS: GABAPENTIN 400 MG (NEURONTIN) CAP PO SCH (20:29)
[2021-05-02] MEDS: meTOprolol TARTRATE 50 MG (LOPRESSOR) TAB PO SCH (20:30)
[2021-05-02] MEDS ORDERED: rOPINIRole 1 MG (REQUIP) TABLET PO SCH (21:00)
[2021-05-02] MEDS ORDERED: OLANZapine 5 MG (ZyPREXA) TAB PO SCH (21:00)
[2021-05-03] MEDS: NS IV 1000 ML 1,000 ML IV SCH (04:35)
[2021-05-03 04:59] VITALS: BP 104/65
[2021-05-03] MEDS ORDERED: KCL 20 MEQ TAB (K-DUR) PO SCH (06:00)
[2021-05-03] MEDS ORDERED: POTASSIUM CL 10MEQ/50ML IVPB 50 ML IV SCH (06:00)
[2021-05-03] MEDS ORDERED: MAGNESIUM 1 GM/100 ML IVPB 100 ML IV SCH (06:00)
[2021-05-03 07:34] VITALS: BP 152/95
[2021-05-03 08:04] LABS: ALBUMIN 3.3 GM/DL (3.2-4.5); BILIRUBIN,TOTAL 0.5 MG/DL (0.1-1.0); CALCIUM 8.4 MG/DL (8.5-10.1); CREATININE SERUM 0.74 MG/DL (0.60-1.30); MAGNESIUM 1.9 MG/DL (1.6-2.4); POTASSIUM 4.2 MMOL/L (3.6-5.0); TOTAL PROTEIN 5.8 GM/DL (6.4-8.2)
[2021-05-03] MEDS: meTOprolol TARTRATE 50 MG (LOPRESSOR) TAB PO SCH (08:11)
[2021-05-03] MEDS: GABAPENTIN 400 MG (NEURONTIN) CAP PO SCH (08:11)
[2021-05-03] MEDS: LORazepam INJ 2 MG/ML (ATIVAN) VIAL IV PRN (08:14)
[2021-05-03] MEDS ORDERED: DULoxetine 30 MG (CYMBALTA) CAP PO SCH (09:00)
[2021-05-03] MEDS ORDERED: lisINopril 20 MG (PRINIVIL) TABLET PO SCH (09:00)
[2021-05-03] MEDS ORDERED: RIVAROXABAN 20 MG TABLET (XARELTO) PO SCH (09:00)
[2021-05-03 11:16] VITALS: BP 119/77
[2021-05-03 13:55] VITALS: BP 119/77
== END 2021-05-03 13:30 | disposition home or self-care (01) | DRG 683 ==
LOC: EDUNIT# 19:18 → ER 19:19 → 4TH 20:40
PROVIDERS: ADMIT Internal Medicine; ATTEND Internal Medicine
DX: N17.9 Acute kidney failure, unspecified (principal); E87.1 Hypo-osmolality and hyponatremia; E87.5 Hyperkalemia; R79.89 Other specified abnormal findings of blood chemistry; F15.129 Other stimulant abuse with intoxication, unspecified; E11.40 Type 2 diabetes mellitus with diabetic neuropathy, unspecified; F31.9 Bipolar disorder, unspecified; F20.9 Schizophrenia, unspecified; I10 Essential (primary) hypertension; Z89.421 Acquired absence of other right toe(s); F17.210 Nicotine dependence, cigarettes, uncomplicated; Z91.040 Latex allergy status
CPT/HCPCS: 36415; 80048; 80053; 80306; 80320; 81000; 82550; 83735; 85025; 86141; 94760

== ENCOUNTER 2021-05-16 12:46 | Emergency (ER) | payer MEDICARE, MEDICAID ==
[~2021-05-16] VITALS: Ht 177.8 cm; Wt 93.4 kg
[2021-05-16 13:45] LABS: BASOPHILS # (AUTO) 0.1 10^3/uL (0.0-0.1); BASOPHILS % (AUTO) 1 % (0-10); EOSINOPHILS # (AUTO) 0.1 10^3/uL (0.0-0.3); EOSINOPHILS % (AUTO) 2 % (0-10); HEMATOCRIT 43 % (40-54); LYMPHOCYTES # (AUTO) 1.4 10^3/uL (1.0-4.0); LYMPHOCYTES % (AUTO) 19 % (12-44); MEAN CORPUSCULAR HEMOGLOBIN 30 pg (25-34); MEAN CORPUSCULAR HGB CONC 33 g/dL (32-36); MEAN CORPUSCULAR VOLUME 90 fL (80-99); MONOCYTES # (AUTO) 0.8 10^3/uL (0.0-1.0); MONOCYTES % (AUTO) 10 % (0-12); NEUTROPHILS % (AUTO) 68 % (42-75); PLATELET COUNT 249 10^3/uL (130-400); WHITE BLOOD COUNT 7.3 10^3/uL (4.3-11.0)
[2021-05-16 13:59] LABS: CHLORIDE 99 MMOL/L (98-107); POTASSIUM 4.3 MMOL/L (3.6-5.0); SODIUM 131 MMOL/L (135-145)
[2021-05-16 14:00] LABS: CALCIUM 9.5 MG/DL (8.5-10.1)
[2021-05-16 14:02] LABS: GLUCOSE 142 MG/DL (70-105)
[2021-05-16 14:03] LABS: BILIRUBIN,TOTAL 0.4 MG/DL (0.1-1.0); CARBON DIOXIDE 23 MMOL/L (21-32)
[2021-05-16 14:05] LABS: ALKALINE PHOSPHATASE 128 U/L (40-136); CREATININE SERUM 0.76 MG/DL (0.60-1.30); GFR ESTIMATED 110
[2021-05-16 14:07] LABS: BUN/CREATININE RATIO 16
[2021-05-16 14:08] LABS: ALANINE AMINOTRANSFERASE 38 U/L (0-55); SALICYLATE < 5.0 MG/DL (5.0-20.0)
[2021-05-16 14:09] LABS: BILIRUBIN,URINE NEGATIVE (NEGATIVE); CLARITY,URINE CLEAR; COLOR,URINE YELLOW; GLUCOSE, URINE (UA) NEGATIVE (NEGATIVE); KETONES,URINE NEGATIVE (NEGATIVE); LEUKOCYTE ESTERASE ,URINE NEGATIVE (NEGATIVE); NITRITE,URINE NEGATIVE (NEGATIVE); PROTEIN,URINE NEGATIVE (NEGATIVE)
[2021-05-16 14:14] LABS: ACETAMINOPHEN < 10 UG/ML (10-30)
[2021-05-16 14:16] LABS: BACTERIA,URINE NEGATIVE /HPF
[2021-05-16 14:22] LABS: AMPHETAMINE SCREEN, URINE NEGATIVE (NEGATIVE); BARBITURATE SCREEN URINE NEGATIVE (NEGATIVE); BENZODIAZEPINES SCREEN URINE POSITIVE (NEGATIVE); CANNABINOID SCREEN, URINE POSITIVE (NEGATIVE); COCAINE SCREEN URINE NEGATIVE (NEGATIVE); METHADONE STAT NEGATIVE (NEGATIVE); METHAMPHETAMINE SCREEN URINE S NEGATIVE (NEGATIVE); OPIATE SCREEN URINE NEGATIVE (NEGATIVE); OXYCODONE STAT NEGATIVE (NEGATIVE); PROPOXYPHENE STAT NEGATIVE (NEGATIVE); TRICYCLIC ANTIDEPRESSANTS SCRE NEGATIVE (NEGATIVE)
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
[2021-05-16] MEDS ORDERED: KETOROLAC 60 MG/2 ML VIAL IM ONE (15:15)
[2021-05-16 15:35] VITALS: BP 137/89
== END 2021-05-16 15:35 | disposition home or self-care (01) ==
LOC: EDUNIT# 12:46 → ER 12:48
DX: G89.29 Other chronic pain (principal); F20.0 Paranoid schizophrenia; F19.10 Other psychoactive substance abuse, uncomplicated; I10 Essential (primary) hypertension; E11.9 Type 2 diabetes mellitus without complications; F31.9 Bipolar disorder, unspecified; F41.9 Anxiety disorder, unspecified; F17.210 Nicotine dependence, cigarettes, uncomplicated; Z91.040 Latex allergy status; Z79.01 Long term (current) use of anticoagulants; Z79.899 Other long term (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
CPT/HCPCS: 80053; 80306; 81000; 84443; 85025; 99284; G0480 ×3; 36415; 80320; 80329

== ENCOUNTER 2021-07-16 12:46 | Emergency (ER) | payer MEDICARE, MEDICAID ==
[~2021-07-16] VITALS: Ht 175 cm; Wt 195.0 kg
[2021-07-16] MEDS ORDERED: morphine INJ 10 MG/ML 1ML (SYR OR VIAL) IVP STA (13:17)
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
[2021-07-16 13:29] LABS: BASOPHILS # (AUTO) 0.1 10^3/uL (0.0-0.1); BASOPHILS % (AUTO) 1 % (0-10); EOSINOPHILS # (AUTO) 0.4 10^3/uL (0.0-0.3); EOSINOPHILS % (AUTO) 7 % (0-10); HEMATOCRIT 48 % (40-54); HEMOGLOBIN 15.8 g/dL (13.3-17.7); LYMPHOCYTES # (AUTO) 2.2 10^3/uL (1.0-4.0); LYMPHOCYTES % (AUTO) 39 % (12-44); MEAN CORPUSCULAR HEMOGLOBIN 30 pg (25-34); MEAN CORPUSCULAR HGB CONC 33 g/dL (32-36); MEAN CORPUSCULAR VOLUME 91 fL (80-99); MONOCYTES # (AUTO) 0.7 10^3/uL (0.0-1.0); MONOCYTES % (AUTO) 12 % (0-12); NEUTROPHILS # (AUTO) 2.3 10^3/uL (1.8-7.8); NEUTROPHILS % (AUTO) 41 % (42-75); PLATELET COUNT 259 10^3/uL (130-400); WHITE BLOOD COUNT 5.7 10^3/uL (4.3-11.0)
[2021-07-16] MEDS ORDERED: LACTATED RINGERS 1,000 ML IV SCH (13:30)
[2021-07-16] MEDS ORDERED: LORazepam INJ 2 MG/ML (ATIVAN) VIAL IVP ONE (13:30)
[2021-07-16 13:37] LABS: ALBUMIN 4.3 GM/DL (3.2-4.5)
[2021-07-16 13:38] LABS: POTASSIUM 4.5 MMOL/L (3.6-5.0)
[2021-07-16 13:39] LABS: CALCIUM 10.6 MG/DL (8.5-10.1)
[2021-07-16 13:40] LABS: TOTAL PROTEIN 7.6 GM/DL (6.4-8.2)
[2021-07-16 13:42] LABS: BILIRUBIN,TOTAL 0.6 MG/DL (0.1-1.0)
[2021-07-16 13:44] LABS: CREATININE SERUM 0.79 MG/DL (0.60-1.30)
--- NOTE | 2021-07-16 14:00 | Diagnostic Imaging Report ---
INDICATION: Blister between the toes. TIME OF EXAM: 1:40 p.m. Three views of the right foot were obtained and compared with prior radiographs of the right foot from 02/13/2021. FINDINGS: Numerous amputations are again noted and appear similar to prior exam. Resection margins appear smooth. There are no bony destructive changes identified to suggest osteomyelitis. No definite soft tissue gas is identified. No fractures are seen. Midfoot and hindfoot are unremarkable. IMPRESSION: Stable chronic changes. No acute feature is detected. Dictated by: Dictated on workstation # [id number]
[2021-07-16] MEDS ORDERED: ACHD5005 PO (14:14)
[2021-07-16] MEDS ORDERED: SULF1TAB38 PO (14:14)
[2021-07-16 14:18] LABS: INR 1.2 (0.8-1.4); PROTHROMBIN TIME PATIENT 15.2 SEC (12.2-14.7)
[2021-07-16 14:41] VITALS: BP 160/88
== END 2021-07-16 14:41 | disposition home or self-care (01) ==
LOC: EDUNIT# 12:46 → ER 12:47
DX: R23.8 Other skin changes (principal); F15.90 Other stimulant use, unspecified, uncomplicated; Z91.040 Latex allergy status
CPT/HCPCS: 10060; 11740; 36415; 73630; 80053; 83605; 85025; 85610; 85730; 87040; 87070; 87205; 96361; 96374; 96375

== ENCOUNTER 2021-08-29 13:58 | Inpatient (IN) | payer MEDICARE, MEDICAID ==
[~2021-08-29] VITALS: Ht 177 cm; Wt 91.3 kg
[2021-08-29] MEDS ORDERED: HYDROcodone/APAP 5 MG/325 MG (LORTAB) TAB PO ONE (14:15)
[2021-08-29] MEDS ORDERED: VANCOMYCIN INJECTION 1,000 MG in NS (IVPB) 250 ML IV ONE (14:15)
[2021-08-29] MEDS ORDERED: ACETAMINOPHEN 500 MG TAB (TYLENOL) PO PRN (14:15)
[2021-08-29] MEDS ORDERED: LACTATED RINGERS IV PRN (14:15)
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
[2021-08-29 14:43] LABS: BASOPHILS # (AUTO) 0.1 10^3/uL (0.0-0.1); BASOPHILS % (AUTO) 1 % (0-10); EOSINOPHILS # (AUTO) 0.2 10^3/uL (0.0-0.3); EOSINOPHILS % (AUTO) 2 % (0-10); HEMATOCRIT 31 % (40-54); HEMOGLOBIN 10.7 g/dL (13.3-17.7); LYMPHOCYTES # (AUTO) 1.5 10^3/uL (1.0-4.0); LYMPHOCYTES % (AUTO) 19 % (12-44); MEAN CORPUSCULAR HEMOGLOBIN 31 pg (25-34); MEAN CORPUSCULAR HGB CONC 35 g/dL (32-36); MEAN CORPUSCULAR VOLUME 89 fL (80-99); MEAN PLATELET VOLUME 10.2 fL (9.0-12.2); MONOCYTES % (AUTO) 12 % (0-12); NEUTROPHILS # (AUTO) 5.4 10^3/uL (1.8-7.8); NEUTROPHILS % (AUTO) 66 % (42-75); PLATELET COUNT 352 10^3/uL (130-400); WHITE BLOOD COUNT 8.1 10^3/uL (4.3-11.0)
[2021-08-29 14:55] LABS: ALBUMIN 3.5 GM/DL (3.2-4.5)
[2021-08-29 14:59] LABS: BILIRUBIN,TOTAL 0.3 MG/DL (0.1-1.0)
[2021-08-29 15:01] LABS: CREATININE SERUM 0.77 MG/DL (0.60-1.30)
--- NOTE | 2021-08-29 15:01 | Diagnostic Imaging Report ---
INDICATION: Foot wound. TIME OF EXAM: 02:42 p.m. COMPARISON: Correlation is made with prior foot radiograph from 07/16/2021. FINDINGS: Postsurgical changes are again noted with numerous amputations. Patient has developed bony destructive changes involving the distal second metatarsal. There is periosteal reaction present. This is all new since prior exam and consistent with osteomyelitis. There appear to be some minimal destructive changes involving the proximal aspect of the proximal phalanx of the second toe as well. There also appears to be some cortical thinning and questionable erosive changes involving the third metatarsal head. This could be involved with osteomyelitis as well. No significant periosteal reaction at this location is seen, however. No fractures are identified. There is no soft tissue gas but there does appear to be soft tissue swelling present. IMPRESSION: Findings consistent with osteomyelitis of the distal second metatarsal as well as the proximal aspect of the proximal phalanx of the second toe. There are some questionable erosive changes of the third metatarsal head which may be involved by osteomyelitis as well. Dictated by: Dictated on workstation # [id number]
[2021-08-29 15:18] LABS: INR 1.1 (0.8-1.4); PROTHROMBIN TIME PATIENT 14.7 SEC (12.2-14.7)
[2021-08-29 15:30] VITALS: BP 179/93
[2021-08-29] MEDS ORDERED: ONDANSETRON 4 MG (ZOFRAN) ORAL DISSOLVE TAB PO PRN (15:45)
[2021-08-29] MEDS ORDERED: MILK OF MAGNESIA 400 MG/5 ML 30 ML UDC PO PRN (15:45)
[2021-08-29] MEDS ORDERED: diphenhydrAMINE 25 MG TAB (BENADRYL) PO PRN (15:45)
[2021-08-29] MEDS ORDERED: CALCIUM CARBONATE 500 MG (TUMS) TAB.CHEW PO PRN (15:45)
[2021-08-29] MEDS ORDERED: BISACODYL 10 MG SUPP (DULCOLAX) PR PRN (15:45)
[2021-08-29] MEDS ORDERED: ACETAMINOPHEN 325 MG TABLET PO PRN (15:45)
[2021-08-29] MEDS ORDERED: VANCOMYCIN INJECTION 0.1 MG in NS (IVPB) 250 ML IV SCH (15:45)
[2021-08-29] MEDS ORDERED: ONDANSETRON 4 MG/2 ML (SDV) Z0FRAN IV PRN (15:45)
[2021-08-29] MEDS ORDERED: polyethylene glycoL POWDER 17 GM (MIRALAX) PACK PO PRN (15:45)
[2021-08-29] MEDS ORDERED: LACTULOSE SYRUP 10GM/15ML (ENULOSE) 30ML UDC PO PRN (15:45)
[2021-08-29] MEDS ORDERED: ANTACID SUSP 30 ML UDC (MYLANTA) PO PRN (15:45)
[2021-08-29] MEDS ORDERED: MELATONIN 3 MG TABLET PO PRN (15:45)
[2021-08-29 15:57] LABS: ERYTHROCYTE SEDIMENTATION RATE 50 MM/HR (0-15)
[2021-08-29] MEDS ORDERED: VANCOMYCIN 1 GM/NS 250 ML IVPB IV NR ×2 (16:00)
[2021-08-29] MEDS ORDERED: PIPERACILLIN SODIUM/TAZOBACTAM 4.5 GM in NS (IVPB) 100 ML IV NR (16:00)
[2021-08-29 16:06] VITALS: BP 146/93
[2021-08-29] MEDS: NS IV 1000 ML 1,000 ML IV SCH ×2 (16:21→23:59)
[2021-08-29] MEDS: ENOXAPARIN 40 MG/0.4 ML (LOVENOX) SYR SC SCH (16:32)
--- NOTE | 2021-08-29 16:49 | Consultation - Surgery ---
History of Present Illness History of Present Illness Patient Consulted On(ronnie/time) 08/29/21 16:44 Date Seen by Provider: Aug 29, 2021 Time Seen by Provider: 16:44 History of Present Illness Tonsil requested by Dr. Goldman for right foot osteomyelitis. Patient is a 46-year-old male with a wound infection to the right distal foot. He has had it for about a month or so he thinks. He is failed outpatient treatment but has not been compliant with treatment. Patient was evicted from his house today and was brought here by emergency medical services. Patient states that he has constant throbbing pain to the right foot. He is now having drainage that is purulent from it. He had a foot x-ray that is suggestive of osteomyelitis of the second and third distal metatarsals. He also has surrounding erythema going up the ankle as well. Patient poor historian. Denies any nausea vomiting fever sweats chills shortness of breath or chest pain at this time. Patient smoked methamphetamine and marijuana yesterday. Allergies and Home Medications Allergies Coded Allergies: latex (Unverified Allergy, Intermediate, 07/20/19) Haloperidol Lactate (Unverified Allergy, Mild, 07/20/19) chlorpromazine HCl (Unverified Allergy, Mild, 07/20/19) haloperidol (Unverified Allergy, Mild, 07/20/19) Patient Home Medication List Home Medication List Reviewed: Yes Ascorbate Calcium (Vitamin C) 500 Mg Tablet, 500 MG PO BID, (Reported) Entered as Reported by: OMID KING on 02/14/21 09 Celecoxib (Celecoxib) 200 Mg Capsule, 200 MG PO BID, (Reported) Entered as Reported by: OMID KING on 02/14/21 09 Duloxetine HCl (Duloxetine HCl) 60 Mg Capsule.dr, 60 MG PO DAILY, (Reported) Entered as Reported by: OMID KING on 02/14/21 09 Gabapentin (Gabapentin) 400 Mg Capsule, 400 MG PO TID, (Reported) Entered as Reported by: OMID KING on 02/14/21 09 Hydrocodone/Acetaminophen (Hydrocodone-Acetamin 5-325 mg) 1 Each Tablet, 1 TAB PO Q4H PRN for PAIN-MODERATE (5-7) Prescribed by: WERNER DRIVER on 07/16/21 1414 Lisinopril (Lisinopril) 20 Mg Tablet, 20 MG PO DAILY, (Reported) Entered as Reported by: OMID KING on 02/14/21940 Metaxalone (Metaxalone) 800 Mg Tablet, 800 MG PO TID, (Reported) Entered as Reported by: OMID KING on 02/14/21940 Metoprolol Tartrate (Metoprolol Tartrate) 100 Mg Tablet, 100 MG PO BID, (Reported) Entered as Reported by: OMID KING on 02/14/21940 Multivitamin (Multivitamin) 1 Each Tablet, 1 EACH PO DAILY, (Reported) Entered as Reported by: OMID KING on 02/14/21941 Olanzapine (Olanzapine) 10 Mg Tablet, 10 MG PO HS, (Reported) Entered as Reported by: OMID KING on 02/14/21940 Potassium Chloride (Potassium Chloride) 10 Meq Capsule.er, 10 MEQ PO DAILY, (Reported) Entered as Reported by: OMID KING on 02/14/21940 Rivaroxaban (Xarelto) 20 Mg Tablet, 20 MG PO DAILY, (Reported) Entered as Reported by: OMID KING on 02/14/21940 Ropinirole HCl (Ropinirole HCl) 3 Mg Tablet, 3 MG PO HS, (Reported) Entered as Reported by: OMID KING on 02/14/21940 Sulfamethoxazole/Trimethoprim (Bactrim Ds Tablet) 1 Each Tablet, 1 EACH PO BID Prescribed by: WERNER DRVIER on 07/16/21 141 Vitamin A (Vitamin A) 10,000 Unit Cap, 10,000 UNIT PO DAILY, (Reported) Entered as Reported by: OMID KING on 02/14/21940 Zinc (Zinc) 50 Mg Tablet, 50 MG PO DAILY, (Reported) Entered as Reported by: OMID KING on 02/14/21940 Past Mqijmcl-Ajxfve-Qdpjch Hx Patient Social History Drug of Choice: METH/ADDERAL Type Used: Cigarettes 2nd Hand Smoke Exposure: Yes Recent Hopitalizations: No Alcohol Use?: Yes Substance type: Methamphetamine, Marijuana Have you traveled recently?: Unable to obtain Immunizations Up To Date Date of Pneumonia Vaccine: Jan 09, 2019 Date of Influenza Vaccine: Jan 09, 2019 Seasonal Allergies Seasonal Allergies: No Surgeries History of Surgeries: Yes (RIGHT HAND, amputation right little toe and RIGHT BIG TOE, skin grafts) Surgeries: Orthopedic Respiratory History of Respiratory Disorde: Yes Respiratory Disorders: Pneumonia Cardiovascular History of Cardiac Disorders: Yes Cardiac Disorders: Hypertension Neurological History of Neurological Disord: Yes Neurological Disorders: Headaches /Migraines Reproductive System Hx Reproductive Disorders: No Genitourinary History of Genitourinary Disor: No Gastrointestinal History of Gastrointestinal Di: Yes Gastrointestinal Disorders: Hepatitis Musculoskeletal History of Musculoskeletal Dis: Yes (TOE AMPUTATIONS DUE TO DIABETES, FINGER AMPUTATIONS DUE TO HUBBARD. ) Musculoskeletal Disorders: Amputee Endocrine History of Endocrine Disorders: Yes ('was diabetic") Endocrine Disorders: Diabetes, Insulin dep HEENT History of HEENT Disorders: No Loss of Vision: Denies Hearing Impairment: Denies Cancer History of Cancer: No Psychosocial History of Psychiatric Problem: Yes (HISTORY OF INTENTIONAL OVERDOSE IN 2003, AND AGAIN 09/15/18;SUBSTANCE ABUSE) Behavioral Health Disorders: Anxiety, Suicide Attempts, Bipolar, Schizophrenia, Violent Behavior Integumentary History of Skin or Integumenta: Yes (DIABETIC FOOT ULCER) Blood Transfusions History of Blood Disorders: No Adverse Reaction to a Blood Tr: No Reviewed Nursing Assessment Reviewed/Agree w Nursing PMH: Yes Family Medical History Significant Family History: No Pertinent Family Hx Family Medial History: AIDS Alcoholism 19 FATHER 19 MOTHER Review of Systems-General Constitutional: No chills, No diaphoresis EENTM: No blurred vision Respiratory: No cough, No dyspnea on exertion Cardiovascular: No chest pain, No palpitations Gastrointestinal: No nausea, No vomiting Genitourinary: No decreased output, No discharge Musculoskeletal: No gout, No joint pain Skin: No change in color, No change in hair/nails Psychiatric/Neurological: Anxiety, Depressed, Emotional Problems All Other Systems Reviewed Negative Unless Noted: Yes (Negative excepted noted.) Physical Exam-General Problems Physical Exam Vital Signs Vital Signs - First Documented 08/29/21 08/29/21 14:02 16:06 Temp 36.9 Pulse 86 Resp 20 B/P (MAP) 140/92 (108) Pulse Ox 100 O2 Delivery Room Air FiO2 21 Capillary Refill : NONE General Appearance: mild distress, thin HEENT: PERRL/EOMI, normal ENT inspection Neck: non-tender, supple Respiratory: chest non-tender, no respiratory distress, no accessory muscle use Cardiovascular: regular rate, rhythm, no JVD Gastrointestinal: non tender, soft Rectal: deferred Back: no CVA tenderness, no vertebral tenderness Extremities: swelling (right lower extremity swelling and erythema, right foot distal foot with slight fluctuance and drainage that is purulent) Neurologic/Psychiatric: alert (anxious), oriented x 3 Skin: other (drainage from right foot small skin opening. left foot small area of black dry eschar with rough surrounding.) Lymphatic: no adenopathy Data Review Labs Laboratory Tests 08/29/21 14:25: White Blood Count 8.1, Red Blood Count 3.46L, Hemoglobin 10.7L, Hematocrit 31L, Mean Corpuscular Volume 89, Mean Corpuscular Hemoglobin 31, Mean Corpuscular Hemoglobin Concent 35, Red Cell Distribution Width 14.0, Platelet Count 352, Mean Platelet Volume 10.2, Immature Granulocyte % (Auto) 0, Neutrophils (%) (Auto) 66, Lymphocytes (%) (Auto) 19, Monocytes (%) (Auto) 12, Eosinophils (%) (Auto) 2, Basophils (%) (Auto) 1, Neutrophils # (Auto) 5.4, Lymphocytes # (Auto) 1.5, Monocytes # (Auto) 1.0, Eosinophils # (Auto) 0.2, Basophils # (Auto) 0.1, Immature Granulocyte # (Auto) 0.0, Erythrocyte Sedimentation Rate 50H, Prothrombin Time 14.7, INR Comment 1.1, Activated Partial Thromboplast Time 25, Sodium Level 129L, Potassium Level 4.0, Chloride Level 93L, Carbon Dioxide Level 25, Anion Gap 11, Blood Urea Nitrogen 14, Creatinine 0.77, Estimat Glomerular Filtration Rate 110, BUN/Creatinine Ratio 18, Glucose Level 138H, Lactic Acid Level 0.98, Calcium Level 9.0, Corrected Calcium 9.4, Total Bilirubin 0.3, Aspartate Amino Transf (AST/SGOT) 8, Alanine Aminotransferase (ALT/SGPT) 7, Alkaline Phosphatase 126, C-Reactive Protein High Sensitivity 8.39H, Total Protein 6.0L, Albumin 3.5 08/29/21 16:07: Glucometer 115H Assessment/Plan Assessment/Plan Assessment/Plan Osteomyelitis right second and third metatarsal Cellulitis right lower extremity Polysubstance abuse Right lower extremity pain Patient needs to be n.p.o. after midnight. We will plan partial amputation of the right second and third metatarsal bones all other indicated procedures. Patient understands this will be an open wound and will need to be taken care of afterwards with keeping the area clean and dry and doing daily wound care. Pain control. Continue antibiotics. LOU CLAIRE DO Aug 29, 2021 16:49
[2021-08-29] MEDS: inSUlin ASPART (NovoLOG) 1 UNIT/0.01 ML (CHARGE PER UNIT) SC SCH ×2 (16:54→21:25)
[2021-08-29] MEDS: DOCUSATE SODIUM 100 MG (COLACE) CAP PO SCH (19:57)
[2021-08-29] MEDS: SENNOSIDES 8.6 MG (SENOKOT) TAB PO SCH (19:57)
[2021-08-29 20:23] VITALS: BP 170/91
[2021-08-29] MEDS: PIPERACILLIN SODIUM/TAZOBACTAM 4.5 GM in NS (IVPB) 100 ML IV SCH (22:54)
[2021-08-29] MEDS: morphine INJ 4 MG/ML 1 ML (VIAL/SYRINGE) IV PRN (23:27)
[2021-08-29 23:46] VITALS: BP 203/103
[2021-08-30] VITALS (8 sets, daily range): BP systolic 141–183; BP diastolic 76–98
[2021-08-30] MEDS: NS IV 1000 ML 1,000 ML IV SCH ×2 (03:18→15:28)
[2021-08-30] MEDS: morphine INJ 4 MG/ML 1 ML (VIAL/SYRINGE) IV PRN ×5 (03:52→19:32)
[2021-08-30] MEDS ORDERED: VANCOMYCIN 1500 MG/NS 500 ML IVPB IV SCH ×2 (04:00)
[2021-08-30] MEDS: inSUlin ASPART (NovoLOG) 1 UNIT/0.01 ML (CHARGE PER UNIT) SC SCH ×4 (05:53→21:50)
[2021-08-30] MEDS: PIPERACILLIN SODIUM/TAZOBACTAM 4.5 GM in NS (IVPB) 100 ML IV SCH ×3 (06:39→21:50)
[2021-08-30] MEDS: SENNOSIDES 8.6 MG (SENOKOT) TAB PO SCH ×3 (08:50→21:57)
[2021-08-30] MEDS: DOCUSATE SODIUM 100 MG (COLACE) CAP PO SCH ×3 (08:50→21:57)
--- NOTE | 2021-08-30 11:59 | History & Physical-Hospitalist ---
FLAKO LO MED STUDENT 08/30/21 1159: History of Present Illness HPI/Chief Complaint CC: R foot pain HPI: This Mr. Baxter, a 46 yo M, who presented to the ED for increasing R foot pain. His past medical history includes schizophrenia, bipolar disorder, methamphetamine abuse, other drug abuse, alcohol abuse, uncontrolled diabetes, multiple metatarsal amputations and DVT. Pt is no longer on his zyprexa. He started having trouble with his R foot about a month or so ago, stating that he came into the ED here and they did nothing for him. Per old records, at that time he had a hemorrhagic bullae, that was drained, revealing granulation tissue, and an x-ray of the foot negative for osteomyelitis. He did not take the antibiotics as prescribed, he did not even pick them up. His pain is "extremely uncontrolled, " and that no one in the hospital is helping him. 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 Pt would not answer questions further, stating to look it up in the chart. Source: patient, RN/MD, old records Exam Limitations: other (behavior ) Date Seen 08/30/21 Time Seen by a Provider: 09:30 Attending Physician Eriak Edwards DO PCP No,Local Physician Referring Physician Date of Admission Aug 29, 2021 at 14:30 Home Medications & Allergies Home Medications Reviewed patient Home Medication Reconciliation performed by pharmacy medication reconciliations refrigeration technician and/or nursing. Patients Allergies have been reviewed. Allergies Allergies Coded Allergies latex (Unverified Allergy, Intermediate, 07/20/19) Haloperidol Lactate (Unverified Allergy, Mild, 07/20/19) chlorpromazine HCl (Unverified Allergy, Mild, 07/20/19) haloperidol (Unverified Allergy, Mild, 07/20/19) Past Tlwocdv-Wtbjez-Varhxa Hx Patient Social History Marrital Status: single Living Status: recent eviction Employed/Student: unemployed Tobacco Use?: Yes Tobacco type used: Cigarettes Smoking Status: Current Everyday Smoker Substance use?: Yes Substance type: Methamphetamine, Opiates/Opioids, Marijuana Alcohol Use?: Yes Alcohol type: Beer, Hard Liquor Additional Alcohol Comments: PT REFUSES TO ANSWER Pt feels they are or have been: Unable to obtain Immunizations Up To Date Date of Influenza Vaccine: Jan 09, 2019 First/Initial COVID19 Vaccinat: 2020 Second COVID19 Vaccination Allen: 2020 Tetanus Booster (TDap): Less Than 5 Years Date of Pneumonia Vaccine: Jan 09, 2019 Seasonal Allergies Seasonal Allergies: No Current Status Advance Directives: Unable to obtain Communicates: Verbally Primary Language: Romanian Is interpretation needed?: No Implanted or Applied Medical D: Other Past Medical History Surgeries: Orthopedic Pneumonia Currently Using CPAP: No Currently Using BIPAP: No Hypertension Headaches /Migraines Hepatitis Amputee Diabetes, Insulin dep Loss of Vision: Denies Hearing Impairment: Denies Anxiety, Suicide Attempts, Bipolar, Schizophrenia, Violent Behavior Blood Disorders: No Adverse Reaction/Blood Tranf: No PMHx: 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 Bipolar Schizophrenia Hypertension Depression Hep c s/p treatment PSH: R hand surgery amputation R 5th toe Family Medical History AIDS Alcoholism 19 FATHER 19 MOTHER No Pertinent Family Hx Review of Systems ROS-Unable to Obtain: Unable to obtain full ROS due to Behavior Constitutional: weakness Gastrointestinal: heartburn, nausea Musculoskeletal: back pain, joint pain, muscle pain Physical Exam Physical Exam Vital Signs Vital Signs - First Documented 08/29/21 08/29/21 14:02 16:06 Temp 36.9 Pulse 86 Resp 20 B/P (MAP) 140/92 (108) Pulse Ox 100 O2 Delivery Room Air FiO2 21 Capillary Refill : NONE Height, Weight, BMI Height: 5'10.00" Weight: 258lbs. 6.1oz. [id number]; 29.14 BMI Method:Stated General Appearance: Mild Distress, Other (Agitated ) HEENT: No Scleral Icterus (L), No Scleral Icterus (R) Respiratory: Lungs Clear, Normal Breath Sounds Cardiovascular: Regular Rate, Rhythm Neurologic/Psychiatric: Alert, Oriented x3, Other (Agitated, twitching, homicidal ideation ) Skin: Damp, Diaphoresis Comments Limited exam due to behavior Results Results/Procedures Labs Laboratory Tests 08/29/21 14:25 Patient resulted labs reviewed. Imaging: Reviewed Imaging Report Assessment/Plan Admission Diagnosis Osteomyelitis of R metatarsal Assessment and Plan Assessment - Osteomyelitis of 2nd R metatarsal and head of 3rd metatarsal - Diabetes - Methamphetamine withdrawal - Drug abuse - Alcohol abuse - Narcotic abuse - Current smoker Plan - Continue NPO status - Scheduled for amputation this afternoon with Dr. Frederick - Will continue with scheduled IV and PO pain medication - High likelihood of leaving against medical advice ERIKA EDWARDS DO 08/30/212040: History of Present Illness Source: patient, RN/MD Exam Limitations: other (Aggressive behavior ) Past Dackvbx-Kkqehf-Mtntyn Hx Patient Social History Marrital Status: single Employed/Student: unemployed Tobacco type used: Cigarettes Smoking Status: Current Everyday Smoker (No) Family Medical History AIDS Alcoholism 19 FATHER 19 MOTHER Review of Systems Constitutional: see HPI Physical Exam Physical Exam General Appearance: No Apparent Distress, Chronically ill Assessment/Plan Admission Diagnosis Assessment: Osteomyelitis right metatarsal in need of amputation IV antibiotics Aggressive behaviorOr Plan: IV antibiotics Supportive care Admission Status: Inpatient Order (span 2 midnights) Reason for Inpatient Admission: Osteomyelitis needing amputation Supervisory-Addendum Brief Verification & Attestation Participated in pt care: history, MDM, physical Personally performed: exam, history, MDM, supervision of care Care discussed with: Medical Student Procedures: n/a Results interpretation: Verified all documentation Verification and Attestation of Medical Student E/M Service A medical student performed and documented this service in my presence. I reviewed and verified all information documented by the medical student and made modifications to such information, when appropriate. I personally performed the physical exam and medical decision making. Erika Edwards, Aug 30, 2021,20:41 FLAKO LO MED STUDENT Aug 30, 2021 11:59 ERIKA EDWARDS DO Aug 30, 2021 20:41
--- NOTE | 2021-08-30 12:37 | Progress Note - Surgery ---
Subjective Date Seen by a Provider: Aug 30, 2021 Time Seen by a Provider: 12:32 Subjective/Events-last exam Patient with right foot pain still. Refusing labs. Wanting pain medications. NPO. For sugery today which he is okay with. Denies n/v fever sweats chills shortness of breath or chest pain. Focused Exam Lactate Level 08/29/21 14:25: Lactic Acid Level 0.98 Objective Exam Vital Signs Date Time Temp Pulse Resp B/P (MAP) Pulse Ox O2 Delivery O2 Flow Rate FiO2 08/30/21 08:00 Room Air 08/30/21 04:11 36.6 81 18 168/83 (111) 98 Room Air 08/29/21 23:46 36.4 79 18 203/103 (136) 93 Room Air 08/29/21 21:35 Room Air 08/29/21 20:23 36.6 85 18 170/91 (117) 92 Room Air 08/29/21 20:07 100 Room Air 08/29/21 16:06 36.9 86 100 21 08/29/21 16:02 100 Room Air 08/29/21 15:34 36.9 86 20 146/93 100 Room Air 08/29/21 15:30 36.6 80 18 179/93 (121) 100 Room Air 08/29/21 14:53 36.9 08/29/21 14:02 36.9 86 20 140/92 (108) 100 Room Air I & O 08/30/21 07:00 Intake Total 1650 ml Output Total 1400 ml Balance 250 ml Capillary Refill : NONE General Appearance: Anxious, Other (Agitated ) HEENT: PERRL/EOMI, Normal ENT Inspection; No Scleral Icterus (L), No Scleral Icterus (R) Neck: Normal Inspection, Non Tender Respiratory: Chest Non Tender, No Accessory Muscle Use, No Respiratory Distress Cardiovascular: Regular Rate, Rhythm, No JVD Gastrointestinal: non tender, soft Extremity: Non Tender, Other (previous skin grafting and amputations, right lower extremity celluluitis and draining wound) Neurologic/Psychiatric: Alert, Oriented x3, Other (Agitated, twitching, homicidal ideation ) Skin: Normal Color, Warm/Dry Lymphatic: No Adenopathy Results Lab Laboratory Tests 08/29/21 14:25: White Blood Count 8.1, Red Blood Count 3.46L, Hemoglobin 10.7L, Hematocrit 31L, Mean Corpuscular Volume 89, Mean Corpuscular Hemoglobin 31, Mean Corpuscular Hemoglobin Concent 35, Red Cell Distribution Width 14.0, Platelet Count 352, Mean Platelet Volume 10.2, Immature Granulocyte % (Auto) 0, Neutrophils (%) (Auto) 66, Lymphocytes (%) (Auto) 19, Monocytes (%) (Auto) 12, Eosinophils (%) (Auto) 2, Basophils (%) (Auto) 1, Neutrophils # (Auto) 5.4, Lymphocytes # (Auto) 1.5, Monocytes # (Auto) 1.0, Eosinophils # (Auto) 0.2, Basophils # (Auto) 0.1, Immature Granulocyte # (Auto) 0.0, Erythrocyte Sedimentation Rate 50H, Prothrombin Time 14.7, INR Comment 1.1, Activated Partial Thromboplast Time 25, Sodium Level 129L, Potassium Level 4.0, Chloride Level 93L, Carbon Dioxide Level 25, Anion Gap 11, Blood Urea Nitrogen 14, Creatinine 0.77, Estimat Glomerular Fi ltration Rate 110, BUN/Creatinine Ratio 18, Glucose Level 138H, Lactic Acid Level 0.98, Calcium Level 9.0, Corrected Calcium 9.4, Total Bilirubin 0.3, Aspartate Amino Transf (AST/SGOT) 8, Alanine Aminotransferase (ALT/SGPT) 7, Alkaline Phosphatase 126, C-Reactive Protein High Sensitivity 8.39H, Total Protein 6.0L, Albumin 3.5 08/29/21 16:07: Glucometer 115H 08/29/21 21:09: Glucometer 124H 08/30/21 05:37: Glucometer 131H Microbiology 08/29/21 Gram Stain - Final, Resulted 08/29/21 Wound Culture, Resulted Pending Assessment/Plan Assessment/Plan Assessment/Plan Osteomyelitis right second and third metatarsal Cellulitis right lower extremity Polysubstance abuse Right lower extremity pain Patient currently n.p.o. We will plan partial amputation of the right second and third metatarsal bones all other indicated procedures. Patient understands this will be an open wound and will need to be taken care of afterwards with keeping the area clean and dry and doing daily wound care. Pain control. Continue antibiotics. To OR. LOU CLAIRE DO Aug 30, 2021 12:37
[2021-08-30] MEDS ORDERED: LIDOCAINE/EPI 2% 1:100,00 (XYLOCAINE) 20 ML VIAL ONE (12:46)
[2021-08-30] MEDS ORDERED: LIDOCAINE 1% INJ 20 ML VIAL ONE (12:46)
[2021-08-30] MEDS ORDERED: proPOfol 200 MG/20 ML (DIPRIVAN) VIAL IV ONE (12:54)
[2021-08-30] MEDS ORDERED: LIDOCAINE PF 2% 5 ML (XYLOCAINE) VIAL ONE (12:54)
[2021-08-30] MEDS ORDERED: SEVOFLURANE (ULTANE) 15 ML INHAL SOLN ONE ×2 (12:54→14:11)
[2021-08-30] MEDS ORDERED: MIDAZOLAM 2 MG/2 ML (VERSED) VIAL ONE (12:54)
[2021-08-30] MEDS ORDERED: fentaNYL INJ 100 MCG/2 ML AMP ONE (12:54)
[2021-08-30] MEDS ORDERED: ONDANSETRON 4 MG/2 ML (SDV) Z0FRAN ONE (12:54)
[2021-08-30] MEDS ORDERED: KETAMINE 50 MG/5 ML SYRINGE ONE (13:10)
[2021-08-30] MEDS ORDERED: GLYCOPYRROLATE 0.2 MG/ML (ROBINUL) 2 ML VIAL ONE (13:24)
[2021-08-30] MEDS ORDERED: HYDROmorphone 2 MG/ML VIAL (DILAUDID) IV ONE (14:30)
[2021-08-30] MEDS ORDERED: ONDANSETRON 4 MG/2 ML (SDV) Z0FRAN IVP PRN (14:30)
[2021-08-30] MEDS ORDERED: HYDROmorphone 2 MG/ML VIAL (DILAUDID) ONE (14:42)
[2021-08-30] MEDS ORDERED: IBUP-1780 PO (15:25)
[2021-08-30] MEDS ORDERED: OMEP40CA6 PO (15:25)
[2021-08-30] MEDS: ENOXAPARIN 40 MG/0.4 ML (LOVENOX) SYR SC SCH (15:32)
[2021-08-30] MEDS: VANCOMYCIN 1500 MG/NS 500 ML IVPB IV SCH ×2 (19:35)
[2021-08-30] MEDS: diphenhydrAMINE 50 MG/ML INJ (BENADRYL) IVP PRN (21:50)
--- NOTE | 2021-08-30 22:27 | OPERATIVE REPORT ---
DATE OF SERVICE: 08/30/2021 PREOPERATIVE DIAGNOSIS: Osteomyelitis, right second and third toe, right lower extremity. POSTOPERATIVE DIAGNOSIS: Osteomyelitis, right second and third toe, right lower extremity. PROCEDURE: Right ankle block and right partial amputation of the second and third metatarsal bones. SURGEON: Lou Frederick DO ANESTHESIA: General. ESTIMATED BLOOD LOSS: Minimal. COMPLICATIONS: None. INDICATIONS: The patient is a 46-year-old male with osteomyelitis of the right second and third metatarsals. Area appears to be infected as well. He understands risks and benefits of the procedure and wished to proceed. Consent was signed in the chart. DESCRIPTION OF PROCEDURE: The patient was taken to the operating suite, was prepped and draped in sterile fashion. Timeout was performed. Local anesthetic was used to do a right ankle block. Local anesthetic injected posterior to right medial and lateral tibia was injected along with fanning over the dorsal aspect of the foot. Sharp and cautery dissection was used to begin excising the remaining remnant of the toe incorporating around the second and third metatarsal heads. Purulent material began to be erupted. Culture was obtained. The remnant of the toe was then amputated off exposing the 2nd and 3rd metatarsals. The second metatarsal head had significant thickening, inflammatory changes around it. The third towards the proximal head had a little bit of abnormality of the bone as well. The second metatarsal was then continued to be dissected down along the shaft of the metatarsal until viable good healthy bone was apparent. A saw was then used to transect the second metatarsal head at the healthy appearing bone and the third metatarsal head was amputated off using a bone saw, a good healthy bone as well. These were removed. Copious amounts of irrigation was used to irrigate the wound. Hemostasis was achieved and the wound was then packed wet to dry with Kerlix. The surrounding foot was washed and dried and sterile bandages were applied. The patient tolerated the procedure well without any complications, taken to recovery room in stable condition. Job ID: [id number] DocumentID: [id number] Dictated Date: 08/30/2021 18:18:56 Induction Machine Setter Date: 08/30/2021 22:26:54 Dictated By: LOU FREDERICK DO [facility]
[2021-08-31] VITALS (7 sets, daily range): BP systolic 157–195; BP diastolic 75–100
[2021-08-31] MEDS: morphine INJ 4 MG/ML 1 ML (VIAL/SYRINGE) IV PRN ×2 (01:50→07:45)
[2021-08-31] MEDS ORDERED: TROUGH ORDER-PHARMACY XX NR ×2 (03:00→07:00)
[2021-08-31] MEDS: NS IV 1000 ML 1,000 ML IV SCH ×3 (05:18→16:09)
[2021-08-31] MEDS: PIPERACILLIN SODIUM/TAZOBACTAM 4.5 GM in NS (IVPB) 100 ML IV SCH ×3 (06:11→23:20)
[2021-08-31] MEDS: inSUlin ASPART (NovoLOG) 1 UNIT/0.01 ML (CHARGE PER UNIT) SC SCH ×4 (06:12→21:02)
--- NOTE | 2021-08-31 07:42 | Progress Note - Surgery ---
OSBALDO FLETCHER Isra 08/31/21 0742: Subjective Date Seen by a Provider: Aug 31, 2021 Time Seen by a Provider: 07:01 Subjective/Events-last exam Mr. Ramirez is 1 day s/p right ankle block and right partial amputation of the second and third metatarsal bones. This morning he reported he was in pain and w as asking for more pain medicine. He reported pain in his head, chest, heart, back, buttocks, leg, and foot. He said that 2 mg of morphine did not "cut it" and that no one cared about his pain. Patient was upset I was wearing a gown due to MRSA precautions. Patient used the bedside urinal and said his IV was ripped out when helped; it was not. Patient threatened to leave AMA. Patient refused a physical exam this morning and refused to answer questions to obtain an adequate ROS. Review of Systems HEENT: Head Aches Musculoskeletal: back pain, leg pain, foot pain Focused Exam Lactate Level 08/29/21 14:25: Lactic Acid Level 0.98 Objective Exam Vital Signs Date Time Temp Pulse Resp B/P (MAP) Pulse Ox O2 Delivery O2 Flow Rate FiO2 08/31/21 04:11 37.4 83 18 157/85 (109) 98 Room Air 08/31/21 01:00 172/78 (109) 08/31/21 00:00 36.9 67 19 98 Room Air 08/30/21 20:00 Room Air 08/30/21 19:34 35.6 88 20 164/89 (114) 98 Room Air 08/30/21 16:00 35.6 83 20 162/86 (111) 98 Room Air 08/30/21 15:00 36.2 14 155/98 (117) 100 Room Air 08/30/21 15:00 Room Air 08/30/21 14:50 14 167/89 (115) 100 OxyMask 2 08/30/21 14:45 OxyMask 3 08/30/21 14:40 14 183/98 (126) 100 OxyMask 3 08/30/21 14:30 16 172/96 (121) 100 OxyMask 6 08/30/21 14:30 OxyMask 6 08/30/21 14:18 OxyMask 8 08/30/21 14:18 36.1 10 141/76 (97) 100 OxyMask 8 08/30/21 08:00 Room Air I & O 08/31/21 06:59 Intake Total 2320 ml Output Total 1850 ml Balance 470 ml Capillary Refill : NONE General Appearance: Anxious (Anxious and upset. Reports 10/10 pain.) HEENT: PERRL/EOMI Respiratory: No Accessory Muscle Use, No Respiratory Distress Extremity: Other (Bandage over right foot. Patient refused physical exam so did not take bandage down to examine wound.) Neurologic/Psychiatric: Alert, Oriented x3, Other (Agitated, anxious, and upset) Skin: Rash (Nonspecific skin changes and rash over body. Changes over shoulders, hands, and chest.) Results Lab Laboratory Tests 08/30/21 14:44: Glucometer 115H 08/30/21 15:23: Glucometer 102 08/30/21 19:54: Glucometer 179H 08/31/21 06:06: Glucometer 129H Microbiology 08/29/21 Blood Culture - Preliminary, Resulted No growth 08/29/21 Gram Stain - Final, Resulted 08/29/21 Wound Culture - Preliminary, Resulted Staphylococcus aureus Assessment/Plan Assessment/Plan Assessment/Plan Assessment: s/p right ankle block and right partial amputation of the second and third metatarsal bones - Surgery on 08/30/2021 - Patient will need home health upon d/c Osteomyelitis right second and third metatarsal - MRSA Cellulitis right lower extremity Polysubstance abuse Right lower extremity pain Plan: Diet as tolerated Pain control with oxycodone Q4H PRN 10 mg PO and morphine Q4H 2 mg IV. Patient reports pain at 10/10 despite medication Wound care Patient will likely need social work consult for home health needs Continue Pip/tazo and Vancomycin DVT ppx with LMWH LOU CLAIRE DO 08/31/21 1600: Subjective Subjective/Events-last exam Patient is reporting significant pain. Not having adequate pain control. He does not have a white count at this time. He would not let anyone change the wound. Patient refusing physical therapy. Denies nausea vomiting fever sweats chills shortness of breath or chest pain. Objective Exam General Appearance: Anxious (Anxious and upset. Reports 10/10 pain.) HEENT: PERRL/EOMI, Normal ENT Inspection Neck: Normal Inspection, Non Tender Respiratory: Chest Non Tender, No Accessory Muscle Use, No Respiratory Distress Cardiovascular: Regular Rate, Rhythm, No JVD Gastrointestinal: non tender, soft Extremity: Normal Inspection, Other (Right foot wound present. No purulent drainage) Neurologic/Psychiatric: Alert, Oriented x3, Other (Agitated, anxious, and upset) Skin: Warm/Dry, Rash (Nonspecific skin changes and rash over body. Changes over shoulders, hands, and chest, skin grafting upper extremities) Lymphatic: No Adenopathy Assessment/Plan Assessment/Plan Assessment/Plan s/p right ankle block and right partial amputation of the second and third metatarsal bones - Surgery on 08/30/2021 - Patient will need significant help for care due to wound and previous albert to upper extremities Osteomyelitis right second and third metatarsal - MRSA Cellulitis right lower extremity Polysubstance abuse Right lower extremity pain Diet as tolerated Pain control with oxycodone Q4H PRN 10 mg PO and change morphine Q4H 2 mg IV top Dilaudid 0.5 mg every 2 hrs. Wound care dressing changed today. Will need daily. Social work consult for health/wound needs Continue Pip/tazo and Vancomycin DVT ppx with LMWH Supervisory-Addendum Brief Verification & Attestation Participated in pt care: history, MDM, physical Personally performed: exam, history, MDM, supervision of care Care discussed with: Medical Student Procedures: n/a Results interpretation: Verified all documentation Verification and Attestation of Medical Student E/M Service A medical student performed and documented this service in my presence. I reviewed and verified all information documented by the medical student and made modifications to such information, when appropriate. I personally performed the physical exam and medical decision making. Lou Claire, Aug 31, 2021,16:07 OSBALDO FLETCHER Aug 31, 2021 07:42 LOU CLAIRE DO Aug 31, 2021 16:00
[2021-08-31 08:01] LABS: BASOPHILS % (AUTO) 1 % (0-10); EOSINOPHILS # (AUTO) 0.2 10^3/uL (0.0-0.3); EOSINOPHILS % (AUTO) 3 % (0-10); HEMATOCRIT 27 % (40-54); HEMOGLOBIN 8.9 g/dL (13.3-17.7); LYMPHOCYTES # (AUTO) 1.3 10^3/uL (1.0-4.0); LYMPHOCYTES % (AUTO) 24 % (12-44); MEAN CORPUSCULAR HEMOGLOBIN 31 pg (25-34); MEAN CORPUSCULAR HGB CONC 34 g/dL (32-36); MEAN CORPUSCULAR VOLUME 93 fL (80-99); MEAN PLATELET VOLUME 10.1 fL (9.0-12.2); MONOCYTES # (AUTO) 0.6 10^3/uL (0.0-1.0); MONOCYTES % (AUTO) 11 % (0-12); NEUTROPHILS # (AUTO) 3.3 10^3/uL (1.8-7.8); NEUTROPHILS % (AUTO) 61 % (42-75); PLATELET COUNT 293 10^3/uL (130-400); WHITE BLOOD COUNT 5.3 10^3/uL (4.3-11.0)
[2021-08-31 08:20] LABS: ALBUMIN 2.9 GM/DL (3.2-4.5); BILIRUBIN,TOTAL 0.2 MG/DL (0.1-1.0); CALCIUM 8.1 MG/DL (8.5-10.1); CREATININE SERUM 0.7 MG/DL (0.60-1.30); POTASSIUM 3.9 MMOL/L (3.6-5.0); TOTAL PROTEIN 5.4 GM/DL (6.4-8.2)
[2021-08-31 08:26] LABS: VANCOMYCIN,TROUGH 14.9 UG/ML (10.0-20.0)
[2021-08-31] MEDS: SENNOSIDES 8.6 MG (SENOKOT) TAB PO SCH ×2 (09:00→19:49)
[2021-08-31] MEDS: DOCUSATE SODIUM 100 MG (COLACE) CAP PO SCH ×2 (09:00→19:49)
[2021-08-31] MEDS ORDERED: HYDROmorphone 2 MG/ML VIAL (DILAUDID) ONE (10:01)
[2021-08-31] MEDS: VANCOMYCIN 1500 MG/NS 500 ML IVPB IV SCH ×4 (10:20→19:49)
--- NOTE | 2021-08-31 10:57 | Progress Note - Hospitalist ---
Subjective HPI/CC On Admission Date Seen by Provider: Aug 31, 2021 Time Seen by Provider: 09:00 CC: R foot pain HPI: This Mr. Baxter, a 46 yo M, who presented to the ED for increasing R foot pain. His past medical history includes schizophrenia, bipolar disorder, methamphetamine abuse, other drug abuse, alcohol abuse, uncontrolled diabetes, multiple metatarsal amputations and DVT. Pt is no longer on his zyprexa. He started having trouble with his R foot about a month or so ago, stating that he came into the ED here and they did nothing for him. Per old records, at that time he had a hemorrhagic bullae, that was drained, revealing granulation tissue, and an x-ray of the foot negative for osteomyelitis. He did not take the antibiotics as prescribed, he did not even pick them up. His pain is "extremely uncontrolled, " and that no one in the hospital is helping him. 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 Pt would not answer questions further, stating to look it up in the chart. Subjective/Events-last exam Patient has not been disagreeable with all staff including this provider complaining that no one is addressing his pain. Other than being disagreeable he did not appear to be in acute physical distress. he refused physical examination adamant about more pain medication. Focused Exam Lactate Level 08/29/21 14:25: Lactic Acid Level 0.98 Objective Exam Vital Signs Vital Signs Date Time Temp Pulse Resp B/P (MAP) Pulse Ox O2 Delivery O2 Flow Rate FiO2 08/31/21 08:00 36.3 79 20 195/92 (126) 96 Room Air 08/30/21 14:50 2 08/29/21 16:06 21 Capillary Refill : NONE General Appearance: No Apparent Distress Results/Procedures Lab Laboratory Tests 08/31/21 07:50 Patient resulted labs reviewed. Imaging: Reviewed Imaging Report Assessment/Plan Assessment and Plan Assess & Plan/Chief Complaint Assessment and Plan Assessment - Osteomyelitis of 2nd R metatarsal and head of 3rd metatarsal - Diabetes - Methamphetamine withdrawal - Drug abuse - Alcohol abuse - Narcotic abuse - Current smoker Plan Postop day 1 status post reported right second and third metatarsal amputation for osteomyelitis. No evidence for sepsis. Pain management deferred to Dr. Frederick who after discussion is going to switch him to Dilaudid. Complex management due to longstanding medical noncompliance secondary to this very poor long-term prognosis. VILLA MCALLISTER MD Aug 31, 2021 10:57
[2021-08-31] MEDS: HYDROmorphone 2 MG/ML VIAL (DILAUDID) IV PRN ×4 (13:12→21:10)
[2021-08-31] MEDS: ENOXAPARIN 40 MG/0.4 ML (LOVENOX) SYR SC SCH (15:28)
[2021-08-31] MEDS ORDERED: lisINopril 20 MG (PRINIVIL) TABLET PO NR (16:00)
[2021-08-31] MEDS: meTOprolol TARTRATE 50 MG (LOPRESSOR) TAB PO SCH (19:49)
[2021-08-31] MEDS: NICOTINE 21 MG (NICODERM) PATCH TD SCH (21:31)
[2021-08-31] MEDS: diphenhydrAMINE 50 MG/ML INJ (BENADRYL) IVP PRN (23:25)
[2021-09-01] MEDS: NS IV 1000 ML 1,000 ML IV SCH ×4 (00:03→23:50)
[2021-09-01] MEDS: HYDROmorphone 2 MG/ML VIAL (DILAUDID) IV PRN ×8 (02:32→23:51)
[2021-09-01 04:59] VITALS: BP 204/108
[2021-09-01] MEDS ORDERED: lisINopril 20 MG (PRINIVIL) TABLET ONE (05:17)
[2021-09-01] MEDS: PIPERACILLIN SODIUM/TAZOBACTAM 4.5 GM in NS (IVPB) 100 ML IV SCH ×3 (05:18→22:40)
[2021-09-01] MEDS: lisINopril 20 MG (PRINIVIL) TABLET PO SCH (05:18)
[2021-09-01] MEDS: meTOprolol TARTRATE 50 MG (LOPRESSOR) TAB PO SCH ×2 (05:19→20:16)
[2021-09-01] MEDS: inSUlin ASPART (NovoLOG) 1 UNIT/0.01 ML (CHARGE PER UNIT) SC SCH ×4 (05:19→20:27)
--- NOTE | 2021-09-01 07:41 | Progress Note - Surgery ---
OSBALDO FLETCHER Isra 09/01/21 0741: Subjective Date Seen by a Provider: Sep 01, 2021 Time Seen by a Provider: 07:05 Subjective/Events-last exam Mr. Ramirez is 2 days s/p right ankle block and right partial amputation of the second and third metatarsal bones. He reports 10/10 pain this morning and says that the medication change hasn't helped. He says that he hurts all over and that he is suffering. He wanted to smoke a cigarette; I informed him that we could provide a nicotine patch instead. This morning he is hypertensive which is being followed by medicine. Review of Systems General: Chills, Night Sweats, Other (Subjective fever) HEENT: No Head Aches, No Visual Changes Pulmonary: No Dyspnea, No Cough Cardiovascular: No: Chest Pain, Palpitations Gastrointestinal: Abdominal Pain; No: Nausea, Vomiting Musculoskeletal: leg pain, foot pain Neurological: No: Weakness, Confusion Focused Exam Lactate Level 08/29/21 14:25: Lactic Acid Level 0.98 Objective Exam Vital Signs Date Time Temp Pulse Resp B/P (MAP) Pulse Ox O2 Delivery O2 Flow Rate FiO2 09/01/21 04:59 37.0 75 24 204/108 (140) 97 Room Air 08/31/21 23:21 36.0 66 22 172/100 (124) 100 Room Air 08/31/21 20:00 Room Air 08/31/21 19:46 36.2 92 20 190/100 (130) 95 Room Air 08/31/21 15:42 35.9 94 18 186/90 (122) 96 Room Air 08/31/21 12:00 36.5 86 20 180/75 (110) 97 Room Air 08/31/21 08:00 Room Air 08/31/21 08:00 36.3 79 20 195/92 (126) 96 Room Air I & O 09/01/21 07:00 Intake Total 2620 ml Output Total 5675 ml Balance -3055 ml Capillary Refill : NONE General Appearance: Anxious (Reports 10/10 pain. Less agitated today.), Chronically ill HEENT: PERRL/EOMI, Moist Mucous Membranes Neck: Normal Inspection, Non Tender Respiratory: Chest Non Tender, Lungs Clear, Normal Breath Sounds, No Accessory Muscle Use, No Respiratory Distress Cardiovascular: Regular Rate, Rhythm, No Edema, Normal Peripheral Pulses Peripheral Pulses: 2+ Radial Pulses (R), 2+ Radial Pulses (L) Gastrointestinal: normal bowel sounds, soft, tenderness (Reports vague tenderness) Extremity: Normal Inspection, Other (Right foot wound present. Dressing changed daily.) Neurologic/Psychiatric: Alert, Oriented x3, Other (Agitated, anxious, and upset) Skin: Warm/Dry, Rash (Nonspecific skin changes and rash over body. Changes over shoulders, hands, and chest, skin grafting upper extremities) Lymphatic: No Adenopathy (Head and neck) Results Lab Laboratory Tests 08/31/21 07:50: White Blood Count 5.3, Red Blood Count 2.87L, Hemoglobin 8.9L, Hematocrit 27L, Mean Corpuscular Volume 93, Mean Corpuscular Hemoglobin 31, Mean Corpuscular Hemoglobin Concent 34, Red Cell Distribution Width 14.7H, Platelet Count 293, Mean Platelet Volume 10.1, Immature Granulocyte % (Auto) 0, Neutrophils (%) (Auto) 61, Lymphocytes (%) (Auto) 24, Monocytes (%) (Auto) 11, Eosinophils (%) (Auto) 3, Basophils (%) (Auto) 1, Neutrophils # (Auto) 3.3, Lymphocytes # (Auto) 1.3, Monocytes # (Auto) 0.6, Eosinophils # (Auto) 0.2, Basophils # (Auto) 0.0, Immature Granulocyte # (Auto) 0.0, Sodium Level 138, Potassium Level 3.9, Chloride Level 106, Carbon Dioxide Level 21, Anion Gap 11, Blood Urea Nitrogen 8, Creatinine 0.70, Estimat Glomerular Filtration Rate 114, BUN/Creatinine Ratio 11, Glucose Level 106H, Calcium Level 8.1L, Corrected Calcium 9.0, Total Bilirubin 0.2, Aspartate Amino Transf (AST/SGOT) 12, Alanine Aminotransferase (ALT/SGPT) 11, Alkaline Phosphatase 99, Total Protein 5.4L, Albumin 2.9L, Vancomycin Level Trough 14.9 08/31/21 11:36: Glucometer 108 08/31/21 15:22: Glucometer 142H 08/31/21 20:08: Glucometer 182H 09/01/21 05:17: Glucometer 117H Microbiology 08/30/21 Gram Stain - Final, Resulted 08/30/21 Anaerobic Culture, Resulted Pending 08/30/21 Surgical Culture - Preliminary, Resulted Staphylococcus aureus 08/29/21 MRSA Screen - Final, Complete 08/29/21 Blood Culture - Preliminary, Resulted No growth Assessment/Plan Assessment/Plan Assessment/Plan Assessment: s/p right ankle block and right partial amputation of the second and third metatarsal bones - Surgery on 08/30/2021 - Patient will need significant help for care due to wound and previous albert to upper extremities 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 Wound care dressing changed yesterday. Will need daily. Social work consult for health/wound needs Continue Pip/tazo and Vancomycin DVT ppx with LMWH Will provide nicotine patch LOU CLAIRE DO 09/01/21 1030: Subjective Subjective/Events-last exam Patient sleeping when i walked in. When woken, instantly thrashing in pain. Instantly having the most severe pain he's ever had. 10/10 pain. No other complaints. Denies n/v fever sweats chills shortness of breath or chest pain. Objective Exam General Appearance: No Apparent Distress, Anxious (Reports 10/10 pain. Less agitated today.), Chronically ill HEENT: PERRL/EOMI, Normal ENT Inspection Neck: Normal Inspection, Non Tender Respiratory: Chest Non Tender, No Accessory Muscle Use, No Respiratory Distress Cardiovascular: Regular Rate, Rhythm, No JVD Gastrointestinal: non tender, soft; No tenderness Extremity: Other (Right foot wound present. Wound clean and dry, minimal serosang draingage.) Neurologic/Psychiatric: Alert, Oriented x3, No Motor/Sensory Deficits, Other (Agitated, anxious) Skin: Normal Color, Warm/Dry Lymphatic: No Adenopathy (Head and neck) Assessment/Plan Assessment/Plan Assessment/Plan s/p right ankle block and right partial amputation of the second and third metatarsal bones - Surgery on 08/30/2021 - Patient will need significant help for care due to wound and previous albert to upper extremities Osteomyelitis right second and third metatarsal - MRSA Cellulitis right lower extremity Polysubstance abuse Right lower extremity pain Diet as tolerated Pain control with oxycodone Q4H PRN 10 mg PO and Dilaudid 0.5 mg every 2 hrs. Wound care dressing changed. Will need daily and prn. Social work consult for health/wound needs Continue Pip/tazo and Vancomycin DVT ppx with LMWH Will provide nicotine patch Supervisory-Addendum Brief Verification & Attestation Participated in pt care: history, MDM, physical Personally performed: exam, history, MDM, supervision of care Care discussed with: Medical Student Procedures: n/a Results interpretation: Verified all documentation Verification and Attestation of Medical Student E/M Service A medical student performed and documented this service in my presence. I reviewed and verified all information documented by the medical student and made modifications to such information, when appropriate. I personally performed the physical exam and medical decision making. Lou Claire, Sep 01, 2021,10:30 OSBALDO FLETCHER Sep 01, 2021 07:41 LOU CLAIRE DO Sep 01, 2021 10:30
[2021-09-01 08:35] VITALS: BP 204/108
[2021-09-01 08:46] VITALS: BP 195/100
[2021-09-01] MEDS ORDERED: NICOTINE 21 MG (NICODERM) PATCH TD SCH (09:00)
[2021-09-01 09:19] LABS: BASOPHILS # (AUTO) 0.1 10^3/uL (0.0-0.1); BASOPHILS % (AUTO) 1 % (0-10); EOSINOPHILS # (AUTO) 0.1 10^3/uL (0.0-0.3); EOSINOPHILS % (AUTO) 1 % (0-10); HEMATOCRIT 31 % (40-54); HEMOGLOBIN 10.4 g/dL (13.3-17.7); LYMPHOCYTES # (AUTO) 1.3 10^3/uL (1.0-4.0); LYMPHOCYTES % (AUTO) 16 % (12-44); MEAN CORPUSCULAR HEMOGLOBIN 31 pg (25-34); MEAN CORPUSCULAR HGB CONC 34 g/dL (32-36); MEAN CORPUSCULAR VOLUME 91 fL (80-99); MEAN PLATELET VOLUME 9.9 fL (9.0-12.2); MONOCYTES # (AUTO) 0.8 10^3/uL (0.0-1.0); MONOCYTES % (AUTO) 10 % (0-12); NEUTROPHILS # (AUTO) 5.6 10^3/uL (1.8-7.8); NEUTROPHILS % (AUTO) 72 % (42-75); PLATELET COUNT 344 10^3/uL (130-400); WHITE BLOOD COUNT 7.8 10^3/uL (4.3-11.0)
[2021-09-01] MEDS: VANCOMYCIN 1500 MG/NS 500 ML IVPB IV SCH ×4 (09:26→20:15)
[2021-09-01] MEDS: SENNOSIDES 8.6 MG (SENOKOT) TAB PO SCH ×2 (09:26→20:16)
[2021-09-01] MEDS: DOCUSATE SODIUM 100 MG (COLACE) CAP PO SCH ×2 (09:26→20:16)
[2021-09-01 09:37] LABS: ALBUMIN 3.5 GM/DL (3.2-4.5); BILIRUBIN,TOTAL 0.6 MG/DL (0.1-1.0); CALCIUM 9.4 MG/DL (8.5-10.1); CREATININE SERUM 0.76 MG/DL (0.60-1.30); POTASSIUM 3.7 MMOL/L (3.6-5.0); TOTAL PROTEIN 6.7 GM/DL (6.4-8.2)
--- NOTE | 2021-09-01 10:46 | Progress Note - Hospitalist ---
Subjective HPI/CC On Admission Date Seen by Provider: Sep 01, 2021 Time Seen by Provider: 10:00 CC: R foot pain HPI: This Mr. Baxter, a 46 yo M, who presented to the ED for increasing R foot pain. His past medical history includes schizophrenia, bipolar disorder, methamphetamine abuse, other drug abuse, alcohol abuse, uncontrolled diabetes, multiple metatarsal amputations and DVT. Pt is no longer on his zyprexa. He started having trouble with his R foot about a month or so ago, stating that he came into the ED here and they did nothing for him. Per old records, at that time he had a hemorrhagic bullae, that was drained, revealing granulation tissue, and an x-ray of the foot negative for osteomyelitis. He did not take the antibiotics as prescribed, he did not even pick them up. His pain is "extremely uncontrolled, " and that no one in the hospital is helping him. 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 Pt would not answer questions further, stating to look it up in the chart. Subjective/Events-last exam Patient had eyes closed upon walking in the room appearing to be in no acute distress. Eyes open to verbal stimulation and his first comment was ongoing to diet and this f------- hospital. The next comment was asking for more pain medication. He just received a dose of Dilaudid according to nursing staff about 20 minutes prior to my arrival. Focused Exam Lactate Level 08/29/21 14:25: Lactic Acid Level 0.98 Objective Exam Vital Signs Vital Signs Date Time Temp Pulse Resp B/P (MAP) Pulse Ox O2 Delivery O2 Flow Rate FiO2 09/01/21 08:46 36.6 70 20 195/100 (131) 95 Room Air 09/01/21 08:35 21 08/30/21 14:50 2 Capillary Refill : NONE General Appearance: No Apparent Distress Respiratory: Chest Non Tender, Lungs Clear, Normal Breath Sounds, No Accessory Muscle Use, No Respiratory Distress Cardiovascular: Regular Rate, Rhythm, No Edema, No Gallop, No JVD, No Murmur, Normal Peripheral Pulses Extremity: Other ( with scarring from chronic stable albert no erythema no evidence for cellulitis elsewhere or ulceration.) Results/Procedures Lab Laboratory Tests 09/01/21 09:05 Patient resulted labs reviewed. Imaging: Reviewed Imaging Report Assessment/Plan Assessment and Plan Assess & Plan/Chief Complaint Assessment and Plan Assessment - Osteomyelitis of 2nd R metatarsal and head of 3rd metatarsal - Diabetes - Methamphetamine withdrawal - Drug abuse - Alcohol abuse - Narcotic abuse - Current smoker Plan Postop day 1 status post reported right second and third metatarsal amputation for osteomyelitis. No evidence for sepsis. Pain management deferred to Dr. Frederick who after discussion Has switch him to Dilaudid. Complex management due to longstanding medical noncompliance. Poor long-term prognosis. child and family services specialist working on residential transfer with hopeful discharge Thursday. VILLA MCALLISTER MD Sep 01, 2021 10:46
[2021-09-01 11:29] VITALS: BP 200/100
[2021-09-01] MEDS: NICOTINE 21 MG (NICODERM) PATCH TD SCH (15:13)
[2021-09-01] MEDS: ENOXAPARIN 40 MG/0.4 ML (LOVENOX) SYR SC SCH (15:45)
[2021-09-01 15:55] VITALS: BP 165/99
[2021-09-01] MEDS ORDERED: NICOTINE PATCH REMOVAL TP SCH (17:59)
[2021-09-01 20:11] VITALS: BP 200/120
[2021-09-01] MEDS: diphenhydrAMINE 50 MG/ML INJ (BENADRYL) IVP PRN (22:40)
[2021-09-02 00:44] VITALS: BP 182/104
[2021-09-02] MEDS: HYDROmorphone 2 MG/ML VIAL (DILAUDID) IV PRN ×4 (02:07→11:38)
[2021-09-02 04:55] VITALS: BP 178/91
[2021-09-02] MEDS: PIPERACILLIN SODIUM/TAZOBACTAM 4.5 GM in NS (IVPB) 100 ML IV SCH (05:43)
[2021-09-02] MEDS: inSUlin ASPART (NovoLOG) 1 UNIT/0.01 ML (CHARGE PER UNIT) SC SCH ×2 (06:20→10:49)
--- NOTE | 2021-09-02 07:24 | Anesthesia-General Post-Op ---
General Patient Condition Mental Status/LOC: Same as Preop Cardiovascular: Satisfactory Nausea/Vomiting: Absent Respiratory: Satisfactory Pain: Controlled Complications: Absent Post Op Complications Complications None Follow Up Care/Instructions Patient Instructions None needed. Anesthesia/Patient Condition Patient Condition Patient is doing well, no complaints, stable vital signs, no apparent adverse anesthesia problems. No complications reported per nursing. D/C home per [facility] Criteria: Yes KENDRA FRIAS CRNA Sep 02, 2021 07:24
[2021-09-02 07:25] VITALS: BP 180/102
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
[2021-09-02] MEDS: diphenhydrAMINE 50 MG/ML INJ (BENADRYL) IVP PRN (08:10)
[2021-09-02] MEDS: VANCOMYCIN 1500 MG/NS 500 ML IVPB IV SCH ×2 (08:10)
[2021-09-02] MEDS: meTOprolol TARTRATE 50 MG (LOPRESSOR) TAB PO SCH (08:11)
[2021-09-02] MEDS: DOCUSATE SODIUM 100 MG (COLACE) CAP PO SCH (08:11)
[2021-09-02] MEDS: SENNOSIDES 8.6 MG (SENOKOT) TAB PO SCH (08:12)
[2021-09-02] MEDS: lisINopril 20 MG (PRINIVIL) TABLET PO SCH (08:12)
[2021-09-02 11:10] VITALS: BP 194/96
[2021-09-02] MEDS ORDERED: NS IV 1000 ML 1,000 ML IV SCH (11:25)
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
[2021-09-02] MEDS ORDERED: HYDR25TA4 PO (11:42)
[2021-09-02] MEDS ORDERED: LISI40TA9 PO (11:42)
[2021-09-02] MEDS ORDERED: LEVO750T39 PO (11:42)
--- NOTE | 2021-09-02 11:44 | Discharge Summary ---
Discharge [facility] Reconcile Patient Problems Problems Reviewed?: Yes Discharge Medications New, Converted or Re-Newed RX: Transmitted to Pharmacy New Medications: Levofloxacin (Levofloxacin) 750 Mg Tablet 750 MG PO DAILY for 14 Days, #14 TAB Hydrochlorothiazide (Hydrochlorothiazide) 25 Mg Tablet 25 MG PO DAILY, #30 TAB Lisinopril (Lisinopril) 40 Mg Tablet 40 MG PO DAILY, #30 TAB Continued Medications: Duloxetine HCl (Duloxetine HCl) 60 Mg Capsule.dr 60 MG PO DAILY, CAP LAST FILLED 05-27-2021 #30/30 DAY SUPPLY Metoprolol Tartrate (Metoprolol Tartrate) 100 Mg Tablet 100 MG PO BID, TAB LAST FILLED 05-29-2021 #120/60 DAY SUPPLY Olanzapine (Olanzapine) 10 Mg Tablet 10 MG PO HS, TAB LAST FILLED 05-29-2021 #60/60 DAY SUPPLY Omeprazole (Omeprazole) 40 Mg Capsule.dr 40 MG PO DAILY, CAP Ropinirole HCl (Ropinirole HCl) 3 Mg Tablet 3 MG PO HS, TAB LAST FILLED 04-27-2021 #90/90 DAY SUPPLY Discontinued Medications: Celecoxib (Celecoxib) 200 Mg Capsule 200 MG PO BID, CAP LAST FILLED 05-29-2021 #120/60 DAY SUPPLY Ibuprofen (Ibuprofen) 800 Mg Tablet 800 MG PO TID, TAB Lisinopril (Lisinopril) 20 Mg Tablet 20 MG PO DAILY, TAB LAST FILLED 05-29-2021 #60/60 DAY SUPPLY Patient Instructions Goal/Follow Up Appt: F/u with PCP 1 week Patient Instructions: Wound Care orders per Dr Frederick Activity & Diet Discharge Diet: ADA Diet, Cardiac Diet Activity as Tolerated: Yes KRISTINA RODRÍGUEZ MD Sep 02, 2021 11:44
[2021-09-03] MEDS ORDERED: lisINopril 40 MG (PRINIVIL) TABLET PO SCH (09:00)
[2021-09-03] MEDS ORDERED: lisINopril 20 MG (PRINIVIL) TABLET PO SCH (09:00)
[2021-09-03] MEDS ORDERED: OXYC10TA7 PO ×2 (13:22→14:12)
== END 2021-09-02 14:00 | disposition home health service (06) | DRG 617 ==
LOC: EDUNIT# 13:58 → ER 13:59 → 4TH 14:30
PROVIDERS: ADMIT Family Medicine; ATTEND Internal Medicine
PROC: 0Y6M0ZC Detachment at Right Foot, Partial 3rd Ray, Open Approach (ICD-10-PCS; 2021-08-30)
PROC: 0Y6M0ZB Detachment at Right Foot, Partial 2nd Ray, Open Approach (ICD-10-PCS; principal; 2021-08-30 13:08)
DX: E11.69 Type 2 diabetes mellitus with other specified complication (principal); M86.9 Osteomyelitis, unspecified; F15.13 Other stimulant abuse with withdrawal; E11.65 Type 2 diabetes mellitus with hyperglycemia; B95.62 Methicillin resistant Staphylococcus aureus infection as the cause of diseases classified elsewhere; Z79.4 Long term (current) use of insulin; E11.40 Type 2 diabetes mellitus with diabetic neuropathy, unspecified; F10.10 Alcohol abuse, uncomplicated; F12.10 Cannabis abuse, uncomplicated; F17.210 Nicotine dependence, cigarettes, uncomplicated; I10 Essential (primary) hypertension; Z59.01 Sheltered homelessness; F41.9 Anxiety disorder, unspecified; F31.9 Bipolar disorder, unspecified; F20.9 Schizophrenia, unspecified; R45.6 Violent behavior; Z91.19 Patient's noncompliance with other medical treatment and regimen; Z86.718 Personal history of other venous thrombosis and embolism; Z79.01 Long term (current) use of anticoagulants; Z89.431 Acquired absence of right foot; Z89.021 Acquired absence of right finger(s); Z89.411 Acquired absence of right great toe; Z88.8 Allergy status to other drugs, medicaments and biological substances; Z91.040 Latex allergy status
CPT/HCPCS: 36415; 73630; 80053; 80202; 82947; 83605; 85025; 85610; 85652; 85730; 86141; 87040; 87070; 87075; 87077; 87081; 87186; 87205

== ENCOUNTER 2021-09-03 12:39 | Emergency (ER) | payer MEDICARE, MEDICAID ==
[~2021-09-03] VITALS: Ht 175.3 cm; Wt 93.0 kg
[~2021-09-03 12:39] MED LIST changes: +HYDR25TA4 PO; +IBUP-1780 PO; +LEVO750T39 PO; +LISI40TA9 PO; +OMEP40CA6 PO
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
[2021-09-03] MEDS ORDERED: OXYC10TA7 PO ×2 (13:22→14:12)
[2021-09-03 13:39] VITALS: BP 176/91
== END 2021-09-03 13:39 | disposition home or self-care (01) ==
LOC: EDUNIT# 12:39 → ER FS 12:41
DX: M96.830 Postprocedural hemorrhage of a musculoskeletal structure following a musculoskeletal system procedure (principal); E11.9 Type 2 diabetes mellitus without complications; F17.210 Nicotine dependence, cigarettes, uncomplicated; Z91.040 Latex allergy status; Z79.4 Long term (current) use of insulin
CPT/HCPCS: 99283

== ENCOUNTER 2021-09-27 11:43 | Emergency (ER) | payer MEDICARE, MEDICAID ==
[~2021-09-27] VITALS: Ht 170 cm; Wt 90.0 kg
[~2021-09-27 11:43] MED LIST changes: +OXYC10TA7 PO
[2021-09-27 11:50] VITALS: BP 205/120
[2021-09-27] MEDS ORDERED: fentaNYL INJ 100 MCG/2 ML AMP IVP STA (12:04)
[2021-09-27 12:42] LABS: BASOPHILS % (AUTO) 1 % (0-10); EOSINOPHILS # (AUTO) 0.1 10^3/uL (0.0-0.3); EOSINOPHILS % (AUTO) 1 % (0-10); HEMATOCRIT 37 % (40-54); HEMOGLOBIN 13.4 g/dL (13.3-17.7); LYMPHOCYTES # (AUTO) 1.6 10^3/uL (1.0-4.0); LYMPHOCYTES % (AUTO) 29 % (12-44); MEAN CORPUSCULAR HEMOGLOBIN 32 pg (25-34); MEAN CORPUSCULAR HGB CONC 36 g/dL (32-36); MEAN CORPUSCULAR VOLUME 90 fL (80-99); MEAN PLATELET VOLUME 9.8 fL (9.0-12.2); MONOCYTES # (AUTO) 0.7 10^3/uL (0.0-1.0); MONOCYTES % (AUTO) 12 % (0-12); NEUTROPHILS # (AUTO) 3.2 10^3/uL (1.8-7.8); NEUTROPHILS % (AUTO) 57 % (42-75); PLATELET COUNT 238 10^3/uL (130-400); WHITE BLOOD COUNT 5.6 10^3/uL (4.3-11.0)
[2021-09-27 12:53] LABS: ALBUMIN 4.2 GM/DL (3.2-4.5)
[2021-09-27 12:54] LABS: POTASSIUM 3.2 MMOL/L (3.6-5.0)
[2021-09-27 12:55] LABS: CALCIUM 9.8 MG/DL (8.5-10.1)
[2021-09-27 12:58] LABS: BILIRUBIN,TOTAL 0.6 MG/DL (0.1-1.0)
[2021-09-27 13:00] LABS: CREATININE SERUM 0.73 MG/DL (0.60-1.30)
[2021-09-27 13:01] LABS: ERYTHROCYTE SEDIMENTATION RATE 12 MM/HR (0-15)
--- NOTE | 2021-09-27 13:12 | Diagnostic Imaging Report ---
HISTORY: Right foot and toe pain. Amputation 2 weeks ago. COMPARISON: 08/29/2021 TECHNIQUE: 3 views of the right foot FINDINGS: There has been amputation of the proximal 2nd and distal 3rd metatarsals since the prior exam. Prior amputation of the 1st interphalangeal joint and the proximal 5th metatarsal is again noted. There is a soft tissue defect in the distal foot consistent with recent surgery, with overlying dressing. There is deformity of the 1st metatarsal from remote trauma or surgery. There is mild cortical irregularity of the 2nd metatarsal stump. No definite erosion is seen. There is degenerative change in the ankle. IMPRESSION: 1. Postsurgical changes in the right foot from prior amputations. Mild cortical irregularity at the 2nd metatarsal stump may be due to infection or healing changes. No other radiographic evidence of osteomyelitis is seen. Dictated by: Dictated on workstation # [id number]
[2021-09-27] MEDS ORDERED: ACHD5005 PO (14:07)
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
== END 2021-09-27 14:28 | disposition home or self-care (01) ==
LOC: EDUNIT# 11:43 → ER 11:45
DX: M79.671 Pain in right foot (principal); M79.89 Other specified soft tissue disorders; I10 Essential (primary) hypertension; E11.9 Type 2 diabetes mellitus without complications; F17.210 Nicotine dependence, cigarettes, uncomplicated; Z79.4 Long term (current) use of insulin; Z79.899 Other long term (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; Z91.14 Patient's other noncompliance with medication regimen; Z86.31 Personal history of diabetic foot ulcer; Z89.021 Acquired absence of right finger(s); Z89.411 Acquired absence of right great toe; Z89.421 Acquired absence of other right toe(s); Z94.5 Skin transplant status
CPT/HCPCS: 36415; 73630; 80053; 85025; 85652; 86141